=== PATIENT | female | born 1965 | race Caucasian/White ===

== ENCOUNTER 2019-11-01 07:52 | Outpatient (CLI) | payer MEDICARE, MEDICAID, SELFPAY ==
[2019-11-01 08:48] VITALS: BMI 37.5
--- NOTE | 2019-11-01 09:03 | NMCV_ITS ---
Mayra Ascencio Age: 54 Gender: F : 1965 Exam Date: 11/01/2019 09:17 Ordering Phys: Aurea Walters Technologist: SUMA Peck Exam Location: [facility] Indications: Chest Pain STRESS TEST Please see separate stress test report in [facility] for full findings IMAGE PROTOCOL Rest/Stress 1 Lexiscan Day Radiopharmaceutical Dose (mCi) Administration Site Administered by Rest: Tc-99m 10.6 IV SUMA Peck Sestamibi Stress:Tc-99m 28.7 IV SUMA Peck Sestamibi Rest: 01-Nov-2019 60 Discovery 630 Stress: 01-Nov-2019 60 Discovery 630 0.4mg Lexiscan. Images obtained in supine and prone position. SPECT RESULTS Technical Quality: Good Raw Data Analysis: Normal, Soft tissue attenuation Image Corrections: Attenuation correction applied to stress images. Summed Stress Score: 8 Summed Rest Score: 0 Summed Difference Score: 8 PERFUSION FINDINGS Small size perfusion abnormality of mild severity of mid to apical inferolateral, apical inferior, apical anterior and apical gil on supine stress images with improved tracer uptake on prone stress images. This is suggestive of attenuation artifact. FUNCTIONAL RESULTS (calculated via Gated SPECT) Stress Image LV EF (%): 77 Stress EDV (mL):66 TID: 1.02 Stress ESV (mL):15 FUNCTIONAL FINDINGS: The left ventricle is normal in size. Transient Ischemia Dilatation of 1. There is normal left ventricular systolic function. The left ventricular ejection fraction is normal with a value of 77%. There is normal left ventricular wall thickening. Normal end-diastolic and end-systolic volumes. IMPRESSIONS 1. Myocardial perfusion imaging is normal. Attenuation artifact noted in mid inferolateral and apical gil. 2. Overall left ventricular systolic function is normal without regional wall motion abnormalities. 3. The left ventricular ejection fraction is normal with a value of 77%. 4. No ischemia based on this study. Marlee Olmos MD (Electronically Signed) Final Date: 02 November 2019 11:49 S
--- NOTE | 2019-11-01 09:03 | ECG_ITS ---
NAME OF STUDY: LEXISCAN SESTAMIBI STRESS TEST INDICATION: Chest Pain PROCEDURE: At the baseline, the blood pressure was 93/61 mmHg, oxygen saturation 93% with a heart rate of 93 bpm. The electrocardiogram showed normal sinus rhythm and nonspecific T wave changes. The Lexiscan was infused over a period of 20 seconds. A total of 0.4 milligrams of Lexiscan was infused. The stress phase was continued for a total of 5 minutes. Heart rate at the end of the stress phase was 92 bpm, oxygen saturation 96% with a blood pressure 104/58 mmHg. The EKG at the peak infusion revealed sinus rhythm with no significant ST-T wave changes. Sestamibi was injected 20 seconds after the Lexiscan infusion. Blood pressure at the end of the recovery phase was 118/60 mmHg, oxygen saturation 95% with a heart rate of 93 beats per minute. CONCLUSION: 1. No significant EKG changes with the LexiScan infusion. 2. No LexiScan induced chest pain or cardiac arrhythmia. 3. Normal blood pressure and heart rate response. 4. Sestamibi/sestamibi perfusion scan pending; see separate report. Electronically Signed On 11-01-2019 13:03:21 SIZING SPONGER by Marlee Olmos M.D. [id number]
[2019-11-01] MEDS: regadenoson 0.4 Mg/5 ml Syringe IVP (10:13)
[2019-11-01 10:16] VITALS: BP 105/56; PULSE 97
== END 2019-11-01 07:53 | disposition home or self-care (01) ==
PROVIDERS: PCP Nurse Practitioner Family; Visit Provider Nurse Practitioner Family
DX: R07.89 Other chest pain (principal)
CPT/HCPCS: 78452; 93017; A9500; J2785

== ENCOUNTER → 2019-11-07 13:32 | Outpatient (BNVA) | payer MEDICARE, MEDICAID, SELFPAY | PROVIDERS: PCP Nurse Practitioner Family; Visit Provider Anesthesiology | DX: G89.29 Other chronic pain (principal); M47.817 Spondylosis without myelopathy or radiculopathy, lumbosacral region; M47.819 Spondylosis without myelopathy or radiculopathy, site unspecified; M51.06 Intervertebral disc disorders with myelopathy, lumbar region; M79.7 Fibromyalgia; M25.562 Pain in left knee; M79.651 Pain in right thigh; M79.652 Pain in left thigh; F17.210 Nicotine dependence, cigarettes, uncomplicated; Z79.891 Long term (current) use of opiate analgesic | CPT/HCPCS: 99214 ==

== ENCOUNTER → 2019-11-28 15:28 | Outpatient (BNVA) | payer MEDICARE, MEDICAID, SELFPAY | PROVIDERS: PCP Nurse Practitioner Family; Visit Provider Nurse Practitioner Family | DX: R68.89 Other general symptoms and signs (principal); J00 Acute nasopharyngitis [common cold]; F17.200 Nicotine dependence, unspecified, uncomplicated | CPT/HCPCS: 87804 ==

== ENCOUNTER 2019-12-17 04:06 | Emergency (ER) | payer MEDICARE, MEDICAID, SELFPAY ==
[2019-12-17 04:09] VITALS: BP 180/105; PULSE 112; RESP 18; TEMP 36.9; O2SAT 97; BMI 36.8
--- NOTE | 2019-12-17 04:19 | W.ED.EAR ---
HPI - Ear Problem General: Chief complaint: Ear Stated complaint: veloz/ear ache Time Seen by Provider: 12/17/19 04:19 History of Present Illness: MD Complaint: ear pain Location: bilateral Duration: constant Severity: severe Relieving factors: nothing Exacerbating factors: nothing Context: recent illness Discharge from ear: yes - bloody (left) Associated symptoms: Denies fever(s), headache(s) or neck pain Review of Systems Const: Denies: fever or chills Eyes: Denies: change in vision or blurry vision ENMT: Reports: Change in hearing and post nasal drip; Denies: painful swallowing, swelling of lips/tongue, bleeding gums or nose bleeds Card: Denies: chest pain, palpitations, irregular heart rhythm, edema, swelling of feet/ankles, shortness of breath on exertion or shortness of breath when lying down Resp: Denies: shortness of breath, productive cough, non-productive cough or wheezing GI: Denies: abdominal pain, nausea, vomiting, rectal pain, blood in stool or black tarry stool : Denies: painful urination, urinary frequency, urinary urgency or blood in urine Musc: Denies: neck pain, back pain, redness or joint warmth Skin/Breast: Denies: rash, itching or redness Neuro: Denies: headache, dizziness, vertigo, confusion or seizure-like activity Psych: Denies: anxiety PFSH ED PFSH: Social History Smoking and tobacco status: current every day smoker cigarettes Packs smoked per day: 0.75 [ Other cigarette details: 10-15 CIGS DAILY ] Alcohol intake: former Physical Exam Const: GENERAL APPEARANCE: well developed ORIENTATION/CONSCIOUSNESS: Yes oriented to person, Yes oriented to place and Yes oriented to time HENMT: COMMON NORMALS: normocephalic, external ears normal and external nose normal HEAD & SCALP: normocephalic; no scalp tenderness FACE & SINUS: normal facial exam NOSE: external nose normal and no nasal discharge EXTERNAL EAR: Yes external ears normal EXTERNAL AUDITORY CANAL: EAC abnormal EAC laterality: left Details: other (Bloody drainage present) TYMPANIC MEMBRANE: TM normal on the right and TM abnormal TM laterality: left Details: perforation MOUTH: tongue normal; no drooling THROAT: posterior oropharynx normal; no peritonsillar mass Eye: COMMON NORMALS: PERRL, EOMs intact bilaterally and conjunctivae normal EYELID: eyelids normal CONJUNCTIVA: Yes conjunctivae normal PUPIL: Yes PERRL Neck/C-Spine: COMMON NORMALS: full ROM GENERAL: No tracheal deviation CERVICAL SPINE: No cervical spine tenderness Chest: COMMONS NORMALS: inspection of chest normal CHEST: No tenderness Resp: COMMON NORMALS: clear to auscultation bilaterally EFFORT & INSPECTION: No tachypneic, No respiratory distress, No retractions, No uses accessory muscles and No tracheal deviation AUSCULTATION: clear to auscultation bilaterally, no rhonchi, no wheezes and lung sounds not diminished Cardio: COMMON NORMALS: regular rate and regular rhythm RATE: regular rate RHYTHM: regular rhythm HEART SOUNDS: no murmurs PERIPHERAL PULSES: radial pulses present GI: INSPECTION: No abdominal distension AUSCULTATION: No hyperactive bowel sounds and No hypoactive bowel sounds PALPATION: No guarding and No rigid PERCUSSION: no dullness to percussion and no tympanic to percussion Neuro: SENSORIUM/ORIENTATION: Yes oriented to person, Yes oriented to place and Yes oriented to time Psych: COMMON NORMALS: mental status grossly normal Skin: COMMON NORMALS: no rashes or lesions noted GENERAL SKIN EXAM: no rashes or lesions noted Course Vital Signs: Vital signs: Vital Signs Temperature 98.4 F 12/17/19 04:20 Pulse Rate 117 H 12/17/19 04:20 Respiratory Rate 22 H 12/17/19 05:23 Blood Pressure 137/100 12/17/19 04:20 Pulse Oximetry 95 12/17/19 04:20 MDM - Ear [facility] Narrative: Medical decision making narrative: 54-year-old female presents with headache, and left ear pain. On exam, she has bloody drainage from her perforated left TM. Her right TM appears normal. CT of the head is negative for bleed/hemorrhage/sinusitis/mastoiditis. Her white blood cell count, though, is 21.4. Her lactate is negative. She has an infiltrate in the right middle lobe of her lung. She will be treated for this plus the ear. Lab Data: Labs: Lab Results 12/17/19 12/17/19 12/17/19 Range/Units 05:35 05:35 06:00 WBC 21.4 H (4.0-10.0) 10^3/ uL RBC 5.19 (4.1-5.3) 10^6/u L Hgb 14.2 (11.5-15.3) g/dL Hct 42.6 (37.0-47.0) % MCV 82.1 (81-99) fL MCH 27.4 L (28.0-34.0) pg MCHC 33.3 (30.0-36.0) g/dL RDW 13.6 (12.1-15.1) % Plt Count 521 H (130-400) 10^3/c mm MPV 10.6 H (7.4-10.4) fL Neut % (Auto) 70.5 % Lymph % (Auto) 16.4 % Upson % (Auto) 9.2 % Eos % (Auto) 2.5 % Baso % (Auto) 0.6 % Neut # (Auto) 15.1 H (1.8-7.7) 10^3/u L Lymph # (Auto) 3.5 (0.8-4.8) 10^3/u L Upson # (Auto) 2.0 H (0.2-0.9) 10^3/u L Eos # (Auto) 0.5 (0.0-0.8) 10^3/u L Baso # (Auto) 0.1 (0.0-0.1) 10^3/u L Nucleated RBC % (a uto) 0 % Nucleated RBCs # 0.0 /100WBC Sodium Cancelled Potassium Cancelled Chloride Cancelled Carbon Dioxide Cancelled Anion Gap Cancelled BUN Cancelled Creatinine Cancelled GFR Calculation Cancelled Glucose Cancelled Lactate (0.5-2.2) mmol/L Calcium Cancelled Total Bilirubin Cancelled AST Cancelled ALT Cancelled Alkaline Phosphata se Cancelled Creatine Kinase Cancelled Total Protein Cancelled Albumin Cancelled Globulin Cancelled Urine Color Yellow (Yellow) Urine Appearance Clear (CLEAR) Urine pH 5.0 (5-7) Ur Specific Gravit y 1.020 (1.005-1.030) Urine Protein Neg (Negative) Urine Glucose (UA) 4+ H (Normal) Urine Ketones Negative (Negative) Urine Blood Neg (Negative) Urine Nitrate Negative (Negative) Urine Bilirubin Neg (NEGATIVE) Urine Urobilinogen Norm (Negative) mg/dL Ur Leukocyte Maria Elena ase Negative (Negative) Urine Opiates Scre en (Negative) ng/mL Ur Barbiturates Sc reen (Negative) ng/mL Ur Phencyclidine S crn (Negative) ng/mL Ur Amphetamines Sc reen (Negative) ng/mL U Benzodiazepines Scrn (Negative) ng/mL Urine Cocaine Scre en (Negative) ng/mL U Marijuana (THC) Screen (Negative) ng/mL Influenza Type A A g (Negative) POC Influenza B Ag (Negative) 12/17/19 12/17/19 12/17/19 Range/Units 06:00 06:50 06:53 WBC (4.0-10.0) 10^3/ uL RBC (4.1-5.3) 10^6/u L Hgb (11.5-15.3) g/dL Hct (37.0-47.0) % MCV (81-99) fL MCH (28.0-34.0) pg MCHC (30.0-36.0) g/dL RDW (12.1-15.1) % Plt Count (130-400) 10^3/c mm MPV (7.4-10.4) fL Neut % (Auto) % Lymph % (Auto) % Upson % (Auto) % Eos % (Auto) % Baso % (Auto) % Neut # (Auto) (1.8-7.7) 10^3/u L Lymph # (Auto) (0.8-4.8) 10^3/u L Upson # (Auto) (0.2-0.9) 10^3/u L Eos # (Auto) (0.0-0.8) 10^3/u L Baso # (Auto) (0.0-0.1) 10^3/u L Nucleated RBC % (a uto) % Nucleated RBCs # /100WBC Sodium Potassium Chloride Carbon Dioxide Anion Gap BUN Creatinine GFR Calculation Glucose Lactate 1.8 (0.5-2.2) mmol/L Calcium Total Bilirubin AST ALT Alkaline Phosphata se Creatine Kinase Total Protein Albumin Globulin Urine Color (Yellow) Urine Appearance (CLEAR) Urine pH (5-7) Ur Specific Gravit y (1.005-1.030) Urine Protein (Negative) Urine Glucose (UA) (Normal) Urine Ketones (Negative) Urine Blood (Negative) Urine Nitrate (Negative) Urine Bilirubin (NEGATIVE) Urine Urobilinogen (Negative) mg/dL Ur Leukocyte Maria Elena ase (Negative) Urine Opiates Scre en Positve (Negative) ng/mL Ur Barbiturates Sc reen Negative (Negative) ng/mL Ur Phencyclidine S crn Negative (Negative) ng/mL Ur Amphetamines Sc reen Negative (Negative) ng/mL U Benzodiazepines Scrn Negative (Negative) ng/mL Urine Cocaine Scre en Negative (Negative) ng/mL U Marijuana (THC) Screen Negative (Negative) ng/mL Influenza Type A A g Negative (Negative) POC Influenza B Ag Negative (Negative) 12/17/19 Range/Units 07:08 WBC (4.0-10.0) 10^3/ uL RBC (4.1-5.3) 10^6/u L Hgb (11.5-15.3) g/dL Hct (37.0-47.0) % MCV (81-99) fL MCH (28.0-34.0) pg MCHC (30.0-36.0) g/dL RDW (12.1-15.1) % Plt Count (130-400) 10^3/c mm MPV (7.4-10.4) fL Neut % (Auto) % Lymph % (Auto) % Upson % (Auto) % Eos % (Auto) % Baso % (Auto) % Neut # (Auto) (1.8-7.7) 10^3/u L Lymph # (Auto) (0.8-4.8) 10^3/u L Upson # (Auto) (0.2-0.9) 10^3/u L Eos # (Auto) (0.0-0.8) 10^3/u L Baso # (Auto) (0.0-0.1) 10^3/u L Nucleated RBC % (a uto) % Nucleated RBCs # /100WBC Sodium 133 L Potassium 4.9 Chloride 100 Carbon Dioxide 21 L Anion Gap 16.9 BUN 9 Creatinine 0.6 GFR Calculation 105.0 Glucose 277 H Lactate (0.5-2.2) mmol/L Calcium 9.8 Total Bilirubin 0.3 AST 15 ALT 21 Alkaline Phosphata se 103 Creatine Kinase 58 Total Protein 7.7 Albumin 4.0 Globulin 3.7 Urine Color (Yellow) Urine Appearance (CLEAR) Urine pH (5-7) Ur Specific Gravit y (1.005-1.030) Urine Protein (Negative) Urine Glucose (UA) (Normal) Urine Ketones (Negative) Urine Blood (Negative) Urine Nitrate (Negative) Urine Bilirubin (NEGATIVE) Urine Urobilinogen (Negative) mg/dL Ur Leukocyte Maria Elena ase (Negative) Urine Opiates Scre en (Negative) ng/mL Ur Barbiturates Sc reen (Negative) ng/mL Ur Phencyclidine S crn (Negative) ng/mL Ur Amphetamines Sc reen (Negative) ng/mL U Benzodiazepines Scrn (Negative) ng/mL Urine Cocaine Scre en (Negative) ng/mL U Marijuana (THC) Screen (Negative) ng/mL Influenza Type A A g (Negative) POC Influenza B Ag (Negative) Discharge Plan Discharge Patient Disposition: Home, Self-Care Clinical Impression: Otitis media Qualifiers: Otitis media type: suppurative Chronicity: acute Laterality: left Recurrence: not specified as recurrent Spontaneous tympanic membrane rupture: with spontaneous rupture Qualified Code(s): H66.012 - Acute suppurative otitis media with spontaneous rupture of ear drum, left ear Pneumonia Qualifiers: Pneumonia type: due to unspecified organism Laterality: right Lung location: middle lobe of lung Qualified Code(s): J18.9 - Pneumonia, unspecified organism Condition: Stable Prescriptions: New Levaquin 750 mg tablet 750 mg PO DAILY 7 Days Qty: 7 RF: 0 Ciprodex 0.3-0.1 % drops,suspension 4 drp EAR-BOTH BID 7 Days Qty: 15 RF: 0 No Action potassium chloride 20 mEq tablet,ER particles/crystals 20 meq PO QDAY RF: 0 tramadol [Ultram] 50 mg tablet 50 mg PO QID PRN (Reason: pain) 30 Days Qty: 120 RF: 0 Brilinta 90 mg tablet 90 mg PO BID RF: 0 lisinopril 2.5 mg tablet 2.5 mg PO QDAY RF: 0 doxepin 25 mg capsule 25 mg PO QDAY RF: 0 albuterol sulfate [ProAir HFA] 90 mcg/actuation HFA aerosol inhaler 1 inh INHALATION ONCE RF: 0 carvedilol 6.25 mg tablet 6.25 mg PO BID RF: 0 metformin 500 mg tablet 500 mg PO QDAY RF: 0 topiramate 50 mg tablet 50 mg PO BID RF: 0 atorvastatin 40 mg tablet 40 mg PO QDAY RF: 0 cholecalciferol (vitamin D3) 50,000 unit tablet 50,000 unit PO ONCE RF: 0 hydroxyzine HCl 25 mg tablet 25 mg PO QID PRNRF: 0 cyclobenzaprine 10 mg tablet 10 mg PO TID RF: 0 duloxetine 60 mg capsule, delayed rel sprinkle 60 mg PO QDAY RF: 0 Ozempic 0.25 mg or 0.5 mg(2 mg/1.5 mL) pen injector 0.25 mg SUBCUT ONCE RF: 0 albuterol sulfate 2.5 mg /3 mL (0.083 %) solution for nebulization 2.5 mg INHALATION Q6H RF: 0 Symbicort 160-4.5 mcg/actuation HFA aerosol inhaler 2 puff INHALATION BID RF: 0 pregabalin [Lyrica] 150 mg capsule 150 mg PO BID RF: 0 nitroglycerin 0.4 mg tablet, sublingual 0.4 mg SUBLINGUAL Q5M PRNRF: 0 pantoprazole [Protonix] 40 mg tablet,delayed release (DR/EC) 40 mg PO QDAY RF: 0 levetiracetam [Keppra] 500 mg tablet See Rx Instructions PO BID RF: 0 ondansetron HCl [Zofran] 4 mg tablet 4 mg PO Q8H PRNRF: 0 isosorbide mononitrate 60 mg tablet extended release 24 hr 60 mg PO BID 90 Days Qty: 180 RF: 3 Discharge Orders: Discharge Order (Routine); Ordered 12/17/19 Ordered By: Olman Shaw Referrals: Genevieve Crespo [Other] Genevieve Crespo FNP-C [Primary Care Provider] - 4-7 days Discharge Diet: Advance as tolerated Discharge Activity: Increase activity as tolerated Patient Instructions: Otitis Media (ED), Pneumonia (ED) Activity Restrictions/Additional Instructions: Return for fever greater than 100 despite 2-3 doses of antibiotics, worsening shortness of breath, worsening ear pain despite treatment, other concerning symptoms. Coding Level of Care Code ED [employer] for Chg Fwd Exam Comprehensive
[2019-12-17 04:20] VITALS: BP 137/100; PULSE 117; RESP 24; TEMP 36.9; O2SAT 95
--- NOTE | 2019-12-17 04:53 | CTR_ITS ---
PROCEDURE INFORMATION: Exam: CT Head Without Contrast Exam date and time: 12/17/2019 5:26 AM Age: 54 years old Clinical indication: Headache and other: Left ear pain; Headache not specified; Additional info: [facility] TECHNIQUE: Imaging protocol: Computed tomography of the head without contrast. Total DLP: 787.51 mGy-cm Radiation optimization: All CT scans at this facility use at least one of these dose optimization techniques: automated exposure control; mA and/or kV adjustment per patient size (includes targeted exams where dose is matched to clinical indication); or iterative reconstruction. COMPARISON: CT head wo con* [id number] 07/20/2019 9:10 PM FINDINGS: Brain: There is no acute intracranial hemorrhage or mass effect. Mild diffuse volume loss is within the range of normal for patient age. There are small vessel ischemic changes within the periventricular and subcortical white matter, but the normal pierce/white matter delineation is maintained. Ventricles: Normal. No ventriculomegaly. Bones/joints: Unremarkable. No acute fracture. Sinuses: Visualized sinuses are unremarkable. No fluid levels. Mastoid air cells: Visualized mastoid air cells are well aerated. Soft tissues: Unremarkable. CT/CT head wo con* [id number] IMPRESSION: No acute hemorrhage or edema. Radiation Dose CTDIVOL = (mGy): DLP = 787.51 (mGy-cm)
--- NOTE | 2019-12-17 04:55 | PC.NURSE ---
Agree with assessment as documented.
[2019-12-17] MEDS: ondansetron 2 mg/ML SDV 2 mL 4 MG IVP (05:22)
[2019-12-17 05:23] VITALS: RESP 22
[2019-12-17] MEDS: HYDROmorphone 1 mg/mL INJ 1 mL IVP (05:23)
[2019-12-17 05:56] LABS: Basophils # 0.1 10^3/uL (0.0-0.1); Basophils % 0.6 %; Eosinophils # 0.5 10^3/uL (0.0-0.8); Eosinophils % 2.5 %; Hematocrit 42.6 % (37.0-47.0); Hemoglobin 14.2 g/dL (11.5-15.3); Lymphocytes # 3.5 10^3/uL (0.8-4.8); Lymphocytes % 16.4 %; Mean Corpuscular HGB Conc 33.3 g/dL (30.0-36.0); Mean Corpuscular Hemoglobin 27.4 pg (28.0-34.0); Mean Corpuscular Volume 82.1 fL (81-99); Mean Platelet Volume 10.6 fL (7.4-10.4); Monocytes % 9.2 %; Neutrophils # 15.1 10^3/uL (1.8-7.7); Neutrophils % 70.5 %; Nucleated Red Blood Cells % 0 %; Platelet Count 521 10^3/cmm (130-400); Red Blood Count 5.19 10^6/uL (4.1-5.3); Red Cell Distribution Width 13.6 % (12.1-15.1); White Blood Count 21.4 10^3/uL (4.0-10.0)
[2019-12-17 06:17] LABS: Add Urine Microscopic? NO
[2019-12-17 06:27] LABS: Bilirubin Urine Neg (NEGATIVE); Blood Urine Neg (Negative); Glucose Urine UA 4+ (Normal); Ketones Urine Negative (Negative); Leukocyte Esterase Urine Negative (Negative); Nitrate Urine Negative (Negative); Protein Urine Neg (Negative); Urine Appearance Clear (CLEAR); Urine Color Yellow (Yellow); Urobilinogen Urine Norm (Negative)
[2019-12-17 06:41] LABS: Amphetamines Screen Urine Negative (Negative); Barbiturates Screen Urine Negative (Negative); Benzodiazepines Screen Urine Negative (Negative); Cocaine Screen Urine Negative (Negative); PCP Screen Urine Negative (Negative); THC Screen Urine Negative (Negative)
--- NOTE | 2019-12-17 06:44 | XR_ITS ---
WS: [id number] XR chest 1V portable [id number] REASON FOR EXAM: leukocytosis FINDINGS: Increased fluid in the minor fissure on the right. The lung yo are hypoaerated. There is a pneumonia in the right lung base with atelectasis. The above findings are increased since September 06, 2019. XR/XR chest 1V portable [id number] IMPRESSION: Low-grade pneumonia right lung base. Increased fluid in the minor fissure. Hypoaerated lungs bilaterally.
[2019-12-17 07:15] LABS: Lactate (Lactic Acid level) 1.8 mmol/L (0.5-2.2)
[2019-12-17] MEDS: levofloxacin-dextrose 5 % 750 MG/150 ML PREMIX 150 MG IV (07:18)
[2019-12-17 07:19] LABS: Influenza A by IFA Negative (Negative); Influenza B by IFA Negative (Negative)
[2019-12-17 07:30] LABS: Alanine Aminotransferase 21 U/L (0-33); Alkaline Phosphatase 103 IU/L (35-105); Anion Gap 16.9 (5-19); Aspartate Amino Transferase 15 U/L (0-32); Blood Urea Nitrogen 9 mg/dL (6-20); Calcium 9.8 mg/dL (8.5-10.5); Carbon Dioxide 21 mmol/L (22-29); Chloride 100 mmol/L (98-107); Creatine Phosphokinase 58 U/L (26-192); Globulin 3.7 g/dL (1.3-4.6); Glucose 277 mg/dL (65-115); Potassium 4.9 mmol/L (3.5-5.1); Sodium 133 mmol/L (136-145); Total Bilirubin 0.3 mg/dL (0.15-1.2); Total Protein 7.7 g/dL (6.6-8.7)
[2019-12-17 08:06] VITALS: BP 126/80; PULSE 100; RESP 18; O2SAT 95
[2019-12-17] MEDS: tetracaine 0.5% Op Soln 4 mL Btl 1 DROP XX (08:55)
[2019-12-17 09:12] VITALS: BP 119/61; PULSE 87; RESP 16; O2SAT 96
== END 2019-12-17 09:13 | disposition home or self-care (01) ==
PROVIDERS: Emergency Provider Emergency Medicine; PCP Nurse Practitioner Family
DX: H66.92 Otitis media, unspecified, left ear (principal); H72.92 Unspecified perforation of tympanic membrane, left ear; J18.9 Pneumonia, unspecified organism; F17.210 Nicotine dependence, cigarettes, uncomplicated
CPT/HCPCS: 36415; 70450; 71045; 80053; 80307; 81003; 82550; 83605; 85025; 87804; 96365; 96366; 96374; 96375; 99284; J1170; J1956; J2405

== ENCOUNTER → 2020-01-04 10:08 | Outpatient (BNVA) | payer MEDICARE, MEDICAID, SELFPAY | PROVIDERS: PCP Nurse Practitioner Family; Visit Provider Anesthesiology | DX: G89.29 Other chronic pain (principal); M47.817 Spondylosis without myelopathy or radiculopathy, lumbosacral region; M47.819 Spondylosis without myelopathy or radiculopathy, site unspecified; M51.06 Intervertebral disc disorders with myelopathy, lumbar region; M79.651 Pain in right thigh; M79.652 Pain in left thigh; F17.210 Nicotine dependence, cigarettes, uncomplicated; Z71.6 Tobacco abuse counseling; Z79.891 Long term (current) use of opiate analgesic | CPT/HCPCS: 99214 ==

== ENCOUNTER → 2020-02-12 11:35 | Outpatient (BNVA) | payer MEDICARE, SELFPAY | PROVIDERS: Family Provider Family Medicine; PCP Nurse Practitioner Family; Visit Provider Nurse Practitioner | DX: E11.65 Type 2 diabetes mellitus with hyperglycemia (principal); E55.9 Vitamin D deficiency, unspecified | CPT/HCPCS: 80053; 80061; 81000; 82044; 82306; 83036; 85025 ==

== ENCOUNTER 2020-04-17 14:23 | Inpatient (IN) | payer MEDICARE, MEDICAID, SELFPAY ==
[2020-04-17] VITALS (10 sets, daily range): BP systolic 92–146; BP diastolic 62–110; PULSE 85–103; RESP 16–22; TEMP 36.4–36.8; O2SAT 93–99; BMI 33.9
--- NOTE | 2020-04-17 14:25 | ECG_ITS ---
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 Measurements Intervals [place] Rate: 101 P: 59 AK: 164 QRS: 44 QRSD: 90 T: 66 QT: 337 QTc: 437 Interpretive Statements SINUS TACHYCARDIA MODERATE ST DEPRESSION [0.05+ mV ST DEPRESSION] Compared to ECG 09/06/2019 22:14:36 ST (T wave) deviation now present Sinus rhythm no longer present Electronically Signed On 04-17-2020 20:45:41 CDT by Marlee Olmos M.D. [id number] f
--- NOTE | 2020-04-17 14:25 | XRR_ITS ---
PROCEDURE INFORMATION: Exam: XR Chest, 1 View Exam date and time: 04/17/2020 2:47 PM Age: 54 years old Clinical indication: Type not specified; Prior surgery; Surgery date: 6+ months; Surgery type: Stents; Patient HX: Chest pain. HX of copd. HX of diabetes. Previous XR 12/17/19 TECHNIQUE: Imaging protocol: XR of the chest Views: 1 view. COMPARISON: CR XR chest 1V portable [id number] 12/17/2019 6:49 AM FINDINGS: Lungs: 9 mm calcified nodule left lung base, unchanged. No acute infiltrate. Pleural space: Unremarkable. No pleural effusion. No pneumothorax. Heart/Mediastinum: Unremarkable. No cardiomegaly. Bones/joints: Unremarkable. XR/XR chest 1V portable [id number] IMPRESSION: No acute process evident.
[2020-04-17] MEDS: ondansetron 2 mg/ML SDV 2 mL 4 MG IVP (14:47)
[2020-04-17] MEDS: HYDROmorphone 1 mg/mL INJ 1 mL IVP (14:47)
[2020-04-17] MEDS: nitroglycerin 1 gm/inch oint Pkt 1 INCH TOPICAL (14:47)
--- NOTE | 2020-04-17 14:53 | W.ED.CHESTPA ---
HPI - Chest Pain General: Chief Complaint: Chest Pain Stated Complaint: CHEST PAIN Time Seen by Provider: 04/17/20 14:25 Source: patient and EMS Mode of arrival: EMS Limitations: no limitations History of Present Illness: HPI narrative: Mayra is a 54-year-old female with a history of coronary artery disease and 2 stents that comes in complaining of chest pain. She states that she had chest pain that awoke her from sleep at 3 AM but resolved with nitroglycerin. The same pain resumed at noon today. She describes the pain as a squeezing type pain that radiates down her left arm. She got no relief or only partial relief with her nitroglycerin and called EMS. EMS reports the patient got relief with her nitroglycerin but then the pain recurred. She got partial relief with morphine in route. Patient also describes shortness of breath and diaphoresis but denies any nausea or vomiting. Other than nitroglycerin she is unaware of any exacerbating or alleviating factors. Associated symptoms: Reports diaphoresis and dyspnea; Deny abdominal pain, fever(s), nausea, palpitations, syncope or vomiting Review of Systems Const: Reports: diaphoresis; Denies: fever(s), chills, body aches, fatigue or malaise Eyes: Denies: change in vision, blurry vision, blind spots, photophobia, eye discharge or eye redness ENMT: Denies: throat pain, odynophagia, hoarseness, swelling of lips/tongue, oral sores, ear or mastoid pain, ear discharge, change in hearing or nasal discharge Card: Reports: chest pain; Denies: palpitations, irregular heart rhythm, edema, lightheadedness, syncope, pre-syncope, dyspnea on exertion or orthopnea Resp: Reports: dyspnea; Denies: productive cough, non-productive cough, wheezing, hemoptysis or chest congestion GI: Denies: abdominal pain, nausea, vomiting, hematemesis, coffee ground emesis, heartburn, diarrhea, constipation, GI cramping, hematochezia or melena : Denies: flank pain, dysuria, urinary frequency, urinary urgency or hematuria Musc: Denies: neck pain, back pain, extremity pain, extremity swelling, joint pain, joint swelling, joint redness, joint warmth or joint stiffness Skin/Breast: Denies: rash, pruritus, erythema, skin tenderness or jaundice Neuro: Denies: headache(s), numbness in extremities, weakness in extremities, sensory changes, lack of coordination, difficulty walking, dizziness, vertigo, confusion, Slurred speech present or seizure-like activity Xavier/Lymph: Denies: easy bruising, easy bleeding, petechiae, purpura or enlarged lymph nodes All/Imm: Denies: urticaria, throat swelling, tongue swelling, facial swelling or acute wheezing PFSH ED PFSH: Medical History Atherosclerotic heart disease of [place] coronary artery with unspecified angina pectoris Chronic left-sided low back pain Chronic obstructive pulmonary disease, unspecified Chronic pain of left knee Controlled diabetes mellitus with hyperglycemia, without long-term current use of insulin Current every day smoker Encounter for long-term opiate analgesic use Essential hypertension Fibromyalgia Intervertebral disc disorder of lumbar region with myelopathy Low back pain radiating to both legs Lumbosacral spondylosis without myelopathy Opioid contract exists Osteoarthritis of spine at multiple levels Type 2 diabetes mellitus with diabetic autonomic (poly)neuropathy Vitamin D deficiency Surgical History History of arthroscopic surgery of elbow BILATERAL S/p bilateral carpal tunnel release S/P hysterectomy S/P knee surgery RIGHT S/P lumbar fusion DR. Shreya ZAYAS IN [place], [place] L4-L5, L5-S1 Status post lumbar laminectomy Family History Other CAD (coronary artery disease) Cancer Diabetes Social History Smoking and tobacco status: current every day smoker cigarettes Packs smoked per day: 0.75 [ Other cigarette details: 10-15 CIGS DAILY ] Second hand smoke exposure: Yes Smoking risk assessment/counseling performed?: Yes Alcohol intake: former Desire information about alcohol rehabilitation?: No Counseling given: No Desire information about substance/drug rehabilitation?: No Counseling given: No Caregiver/support person: No Lives independently: Yes Household members: family Housing: Manufactured/Mobile home Marital status: service: No Current occupational status: unemployed Pets and animals: Yes History of recent travel: No Current gender identity: Female Physical Exam Const: COMMON NORMALS: no acute distress, patient oriented x3, no limitations, healthy appearing and well nourished GENERAL APPEARANCE: cooperative, well kempt and well developed HENMT: COMMON NORMALS: normocephalic, atraumatic, external ears normal, EAC's normal and Normal external nose present HEAD & SCALP: normal to inspection, normocephalic and atraumatic FACE & SINUS: normal facial exam and face symmetric NOSE: Normal external nose present and Normal nares present EXTERNAL EAR: Yes external ears normal EXTERNAL AUDITORY CANAL: EAC's normal MOUTH: Normal oral and palatal mucosa present, lip normal and tongue normal Eye: COMMON NORMALS: Equal, round and reactive pupils present and conjunctivae normal GENERAL EYE: appearance normal, both eyes and all related structures ALIGNMENT: Yes alignment normal PERIORBITAL: periorbital findings normal EYELID: eyelids normal CONJUNCTIVA: Yes conjunctivae normal SCLERA: sclerae normal PUPIL: Yes Equal, round and reactive pupils present Neck/C-Spine: COMMON NORMALS: full ROM, no lymphadenopathy, supple, no meningeal signs and no JVD GENERAL: Yes normal visual inspection and Yes trachea midline Chest: COMMONS NORMALS: normal inspection of the chest and normal palpation of entire chest wall Resp: COMMON NORMALS: normal respiratory effort, No retractions and No use of accessory muscles EFFORT & INSPECTION: Yes able to speak in complete sentences and Yes symmetric chest movement AUSCULTATION: no crackles, no rales, no rhonchi and no wheezes Cardio: COMMON NORMALS: no JVD, regular rate, regular rhythm, S1 normal heart sound present and S2 normal heart sound present RATE: regular rate RHYTHM: regular rhythm HEART SOUNDS: S1 normal heart sound present, S2 normal heart sound present, no click, no gallops, no murmurs, no rubs and abnormal split S2 GI: COMMON NORMALS: Soft to palpation and No hepatosplenomegaly present PALPATION: Yes Soft to palpation, No Tenderness to palpation present (GI), No Guarding due to palpation present (GI), No Rigid due to palpation, Yes No hepatosplenomegaly present, No Hernia present, No Palpable mass present and No Pulsatile mass present : COMMON NORMALS: Yes no CVA tenderness BLADDER/KIDNEY EXAM: Yes no CVA tenderness EXTERNAL FEMALE EXAM: No Hernia present Back/Pelvis: COMMON NORMALS: no CVA tenderness, thoracic and lumbar spine normal to inspection, no thoracic nor lumbar tenderness and thoraco-lumbar ROM normal Extremity: COMMON NORMALS: normal to inspection, full ROM, capillary refill normal, no joint enlargement, no clubbing, cyanosis or edema and no calf tenderness Neuro: COMMON NORMALS: patient oriented x3, CN's II-XII intact bilaterally, moves all extremities, no focal motor deficits and no sensory deficits noted MENINGEAL SIGNS: Yes no meningeal signs SPEECH: speech normal Psych: COMMON NORMALS: mental status grossly normal, Normal thought process present, cooperative, normal affect, speech normal and activity/motor behavior normal APPEARANCE: Yes well kempt SPEECH: Yes normal speech THOUGHT PROCESS: Normal thought process present Skin: COMMON NORMALS: no rashes or lesions noted, turgor normal, no jaundice, no petechiae and no mottling GENERAL SKIN EXAM: no rashes or lesions noted and turgor normal Course Vital Signs: Vital signs: Vital Signs Temperature 98.1 F 04/17/20 19:48 Pulse Rate 88 04/17/20 20:27 Respiratory Rate 20 H 04/17/20 20:41 Blood Pressure 92/65 04/17/20 19:48 Pulse Oximetry 94 04/17/20 20:41 MDM - Chest Pain MDM Narrative: Medical decision making narrative: Patient has a heart score of 5. Most recent cardiac work-up was in October of this year which did not reveal anything specific. Patient symptoms sound as though she is having crescendo angina. Her EKG appears to be worse than her baseline with minor ST segment depressions. Because of her complicated history I believe she would benefit from inpatient evaluation. I reviewed the case in full with Dr. Gresham who is in agreement. The patient is chest pain-free after combination of aspirin and Dilaudid for her pain. Lab Data: Attestation: I reviewed the patient's lab results. Labs: Lab Results 04/17/20 04/17/20 04/17/20 Range/Units 15:28 15:28 15:28 WBC 16.3 H (4.0-10.0) 10^3/ uL RBC 4.94 (4.1-5.3) 10^6/u L Hgb 13.5 (11.5-15.3) g/dL Hct 42.6 (37.0-47.0) % MCV 86.2 (81-99) fL MCH 27.3 L (28.0-34.0) pg MCHC 31.7 (30.0-36.0) g/dL RDW 14.9 (12.1-15.1) % Plt Count 497 H (130-400) 10^3/c mm MPV 9.6 (7.4-10.4) fL Neut % (Auto) 65.0 % Lymph % (Auto) 22.5 % Vill[place]ba % (Auto) 7.3 % Eos % (Auto) 3.8 % Baso % (Auto) 0.7 % Neut # (Auto) 10.6 H (1.8-7.7) 10^3/u L Lymph # (Auto) 3.7 (0.8-4.8) 10^3/u L [place] # (Auto) 1.2 H (0.2-0.9) 10^3/u L Eos # (Auto) 0.6 (0.0-0.8) 10^3/u L Baso # (Auto) 0.1 (0.0-0.1) 10^3/u L Nucleated RBC % (a uto) 0 % Nucleated RBCs # 0.0 /100WBC Sodium 136 (136-145) mmol/L Potassium 4.3 (3.5-5.1) mmol/L Chloride 102 (98-107) mmol/L Carbon Dioxide 23 (22-29) mmol/L Anion Gap 15.3 (5-19) BUN 10 (6-20) mg/dL Creatinine 0.6 (0.5-0.9) mg/dL GFR Calculation 105.0 (90-130) mL/min Glucose 239 H (65-115) mg/dL Calculated Osmolal ity 286 (285-295) mOsm/k g Calcium 9.3 (8.5-10.5) mg/dL Total Bilirubin 0.2 (0.15-1.2) mg/dL AST 10 (0-32) U/L ALT 12 (0-33) U/L Alkaline Phosphata se 101 (35-105) IU/L Troponin T Baselin e 16 H (0-10) ng/L Total Protein 6.8 (6.6-8.7) g/dL Albumin 3.9 (3.5-5.2) g/dL Globulin 2.9 (1.3-4.6) g/dL Imaging Data^: CXR: My impression: No acute cardiopulmonary findings. EKG Data^: EKG 1: EKG interpretation date: 04/17/20 EKG interpretation time: 14:41 Interpretation: Normal sinus rhythm at 101 beats a minute, nonspecific ST and T wave changes. No other acute findings. EKG 2: Attestation: I personally reviewed and interpreted this EKG as follows: EKG interpretation date: 04/17/20 EKG interpretation time: 15:59 Interpretation: Normal sinus rhythm at 86 beats a minute, nonspecific ST and T wave changes. Discharge Plan Discharge Patient Disposition: Placed in Observation Admit Provider: Elke Gresham Clinical Impression: Chest pain Qualifiers: Chest pain type: unspecified Qualified Code(s): R07.9 - Chest pain, unspecified Condition: Stable Referrals: Genevieve Crespo FNP-C [Primary Care Provider] - Discharge Date/Time: 04/17/20 18:15 Coding Level of Care Code ED Applied Researcher for Chg Fwd Exam Comprehensive
[2020-04-17 15:38] LABS: Basophils # 0.1 10^3/uL (0.0-0.1); Basophils % 0.7 %; Eosinophils # 0.6 10^3/uL (0.0-0.8); Eosinophils % 3.8 %; Hematocrit 42.6 % (37.0-47.0); Hemoglobin 13.5 g/dL (11.5-15.3); Lymphocytes # 3.7 10^3/uL (0.8-4.8); Lymphocytes % 22.5 %; Mean Corpuscular HGB Conc 31.7 g/dL (30.0-36.0); Mean Corpuscular Hemoglobin 27.3 pg (28.0-34.0); Mean Corpuscular Volume 86.2 fL (81-99); Mean Platelet Volume 9.6 fL (7.4-10.4); Monocytes # 1.2 10^3/uL (0.2-0.9); Monocytes % 7.3 %; Neutrophils # 10.6 10^3/uL (1.8-7.7); Nucleated Red Blood Cells % 0 %; Platelet Count 497 10^3/cmm (130-400); Red Blood Count 4.94 10^6/uL (4.1-5.3); Red Cell Distribution Width 14.9 % (12.1-15.1); White Blood Count 16.3 10^3/uL (4.0-10.0)
[2020-04-17 15:57] LABS: Alanine Aminotransferase 12 U/L (0-33); Albumin Level 3.9 g/dL (3.5-5.2); Alkaline Phosphatase 101 IU/L (35-105); Anion Gap 15.3 (5-19); Aspartate Amino Transferase 10 U/L (0-32); Blood Urea Nitrogen 10 mg/dL (6-20); Calcium 9.3 mg/dL (8.5-10.5); Carbon Dioxide 23 mmol/L (22-29); Chloride 102 mmol/L (98-107); Globulin 2.9 g/dL (1.3-4.6); Glucose 239 mg/dL (65-115); Osmolality Calculated 286 mOsm/kg (285-295); Potassium 4.3 mmol/L (3.5-5.1); Sodium 136 mmol/L (136-145); Total Bilirubin 0.2 mg/dL (0.15-1.2); Total Protein 6.8 g/dL (6.6-8.7)
[2020-04-17 16:04] LABS: Troponin(5th) Baseline 16 ng/L (0-10)
[2020-04-17] MEDS: HYDROmorphone 1 mg/mL INJ 1 mL 0.5 MG IVP (16:19)
--- NOTE | 2020-04-17 16:25 | ECG_ITS ---
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 Measurements Intervals [place] Rate: 86 P: 21 NV: 199 QRS: 26 QRSD: 98 T: 35 QT: 384 QTc: 460 Interpretive Statements SINUS RHYTHM MODERATE ST DEPRESSION [0.05+ mV ST DEPRESSION] Compared to ECG 04/17/2020 14:41:23 Sinus tachycardia no longer present ST (T wave) deviation still present Electronically Signed On 04-17-2020 20:54:11 CDT by Marlee Olmos M.D. [email or web address]/store/NU/[id number] f
[2020-04-17 18:14] LABS: Troponin 5 2HR 31.83 ng/L (0-10)
[2020-04-17 18:24] LABS: Troponin 5 2HR Delta 15.83 ABS# (0-10)
--- NOTE | 2020-04-17 19:05 | P.HP_ITS ---
Providers/Chief Complaint Admitting Physician: Elke Gresham MD Primary Care Provider: CHARLOTTE Pugh Chief Complaint: CHEST PAIN History of Present Illness Mayra Ascencio is a 54 year old female History of DM, non-ST elevation AR status post stent Angiogram in November 2018 showed nonobstructive disease with 20% proximal LAD, 20% mild circumflex, 20% mild RCA and normal left main , last stress test 10/2019 with no ischemia. Presents to ER complaining of chest pain. She states that she had chest pain that awoke her from sleep at 3 AM but resolved with nitroglycerin. The same pain resumed at noon today. She describes the pain as a squeezing type pain that radiates down her left arm. She got partial relief with morphine in route. Associated symptoms are diaphoresis. Troponin is at 16 at baseline. Chest pain is currently resolved. No acute ST-T wave changes. Review of Systems General: Reports: 10 or more systems reviewed and unremarkable except in HPI and below Const: Denies: fever(s), chills or body aches Eyes: Denies: change in vision, blurry vision or photophobia ENMT: Reports: hoarseness; Denies: throat pain, enlarged tonsils, odynophagia or nasal congestion Card: Denies: chest pain, palpitations, irregular heart rhythm, edema, swelling of feet/ankles, lightheadedness, pre-syncope, dyspnea on exertion or orthopnea Resp: Denies: dyspnea, productive cough, non-productive cough, wheezing, stridor, pain on inspiration, change in phlegm color, hemoptysis or chest congestion GI: Denies: abdominal pain, nausea, vomiting, hematemesis, coffee ground emesis, dysphagia, heartburn, diarrhea, constipation, GI cramping, change in stool character, hematochezia or melena : Denies: flank pain, difficulty voiding, dysuria, urinary frequency, urin [place] urgency, urinary hesitancy or hematuria Musc: Denies: neck pain, back pain, extremity pain, joint swelling, joint warmth or deformity Neuro: Denies: headache(s), numbness in extremities, weakness in extremities, sensory changes, difficulty walking, frequent falls, dizziness, vertigo, b ehavioral changes, Slurred speech present or seizure-like activity Psych: Denies: anxiety, depression, suicidal ideation or homicidal ideation Endo: Denies: polyuria, polydipsia, tired all the time, cold intolerance or hot flashes Xavier/Lymph: Denies: easy bruising or easy bleeding Medications/Allergies Home Medications Medication Instructions Recorded Confirmed Last Taken Type doxepin 25 mg capsule 25 mg PO DAILY 11/05/19 04/17/20 04/17/20 History duloxetine 60 mg capsule,delayed 60 mg PO DAILY 11/05/19 04/17/20 04/17/20 History release sprinkle hydroxyzine HCl 25 mg tablet 25 mg PO QID PRN 11/05/19 04/17/20 04/17/20 History nitroglycerin 0.4 mg sublingual 0.4 mg SUBLINGUAL Q5M PRN 11/05/19 04/17/20 04/17/20 History tablet pantoprazole 40 mg tablet,delayed 40 mg PO DAILY 11/05/19 04/17/20 04/17/20 History release ticagrelor 90 mg tablet 90 mg PO BID 11/05/19 04/17/20 04/17/20 History topiramate 50 mg tablet 50 mg PO BID 11/05/19 04/17/20 04/17/20 History ondansetron HCl 4 mg tablet 4 mg PO Q8H PRN 11/07/19 04/17/20 04/17/20 History potassium chloride 20 mEq 20 meq PO DAILY 11/07/19 04/17/20 04/17/20 History tablet,extended release(part/cryst) atorvastatin 40 mg tablet 40 mg PO QDAY #30 tab 02/24/20 04/17/20 04/17/20 Rx budesonide-formoterol HFA 160 2 puff INHALATION Q12H #10.2 gm 02/24/20 04/17/20 04/17/20 Rx mcg-4.5 mcg/actuation aerosol inhaler cholecalciferol (vitamin D3) 1,250 50,000 unit PO .weekly #4 tab 02/24/20 04/17/20 04/13/20 Rx mcg (50,000 unit) tablet metformin 500 mg tablet,extended 1,000 mg PO BID #120 tab 02/24/20 04/17/20 04/17/20 Rx release 24 hr semaglutide 1 mg/dose (2 mg/1.5 1 mg SUBCUT .weekly #3 ml 02/29/20 04/17/20 04/13/20 Rx mL) subcutaneous pen injector cyclobenzaprine 10 mg tablet 10 mg PO TID 30 Days #90 tab 03/04/20 04/17/20 04/17/20 Rx pregabalin 150 mg capsule 150 mg PO BID 30 Days #60 cap 03/04/20 04/17/20 04/17/20 Rx tramadol 50 mg tablet 50 mg PO QID PRN 30 Days #120 tab 03/04/20 04/17/20 04/17/20 Rx albuterol sulfate 90 mcg/actuation 2 puff INHALATION QID PRN 30 Days 03/25/20 04/17/20 04/17/20 Rx aerosol inhaler #6.7 gm pen needle, diabetic 31 gauge x #1,200 each 03/25/20 04/17/20 Unknown Rx 03/01 isosorbide mononitrate 60 mg 60 mg PO BID 90 Days #180 tab 04/12/20 04/17/20 04/17/20 Rx tablet,extended release 24 hr carvedilol [Coreg] 6.25 mg PO BID 04/17/20 04/17/20 04/17/20 History fluticasone furoate-vilanterol See Rx Instructions .ROUTE .COMPLEX 04/17/20 04/17/20 04/17/20 History [Breo Ellipta] lisinopril 2.5 mg PO DAILY 04/17/20 04/17/20 04/17/20 History Allergies Allergy/AdvReac Type Severity Reaction Status Date / Time adhesive Allergy Unknown Verified 04/17/20 16:01 clindamycin Allergy ADR-Itching Verified 04/17/20 16:01 codeine Allergy Unknown Verified 04/17/20 16:01 fentanyl Allergy ALGY-Swell Verified 04/17/20 16:01 Lip/Tongue/Throat hydrocodone Allergy Unknown Verified 04/17/20 16:01 latex Allergy ALGY-Swell Verified 04/17/20 16:01 Lip/Tongue/Throat midazolam [From Versed] Allergy ADR-Itching Verified 04/17/20 16:01 naproxen [From Naprosyn] Allergy Unknown Verified 04/17/20 16:01 nut - unspecified Allergy ALGY-Anaphy Verified 04/17/20 16:01 laxis oxycodone [From Roxicodone] Allergy ADR-Muscle Verified 04/17/20 16:01 Pain Penicillins Allergy Unknown Verified 04/17/20 16:01 sulfamethoxazole Allergy ADR-Migrain Verified 04/17/20 16:01 [From Bactrim] e trimethoprim [From Bactrim] Allergy ADR-Migrain Verified 04/17/20 16:01 e PFSH Acute PFSH: Medical History Atherosclerotic heart disease of [place] coronary artery with unspecified angina pectoris Chronic left-sided low back pain Chronic obstructive pulmonary disease, unspecified Chronic pain of left knee Controlled diabetes mellitus with hyperglycemia, without long-term current use of insulin Current every day smoker Encounter for long-term opiate analgesic use Essential hypertension Fibromyalgia Intervertebral disc disorder of lumbar region with myelopathy Low back pain radiating to both legs Lumbosacral spondylosis without myelopathy Opioid contract exists Osteoarthritis of spine at multiple levels Type 2 diabetes mellitus with diabetic autonomic (poly)neuropathy Vitamin D deficiency Surgical History History of arthroscopic surgery of elbow BILATERAL S/p bilateral carpal tunnel release S/P hysterectomy S/P knee surgery RIGHT S/P lumbar fusion DR. Shreya ZAYAS IN [place], [place] L4-L5, L5-S1 Status post lumbar laminectomy Family History Other CAD (coronary artery disease) Cancer Diabetes Social History Smoking and tobacco status: current every day smoker cigarettes Packs smoked per day: 0.75 [ Other cigarette details: 10-15 CIGS DAILY ] Second hand smoke exposure: Yes Smoking risk assessment/counseling performed?: Yes Alcohol intake: former Desire information about alcohol rehabilitation?: No Counseling given: No Desire information about substance/drug rehabilitation?: No Counseling given: No Caregiver/support person: No Lives independently: Yes Household members: family Housing: Manufactured/Mobile home Marital status: service: No Current occupational status: unemployed Pets and animals: Yes History of recent travel: No Current gender identity: Female Vitals/I&O/Wt Last Vital Signs Temp 97.6 F 04/17/20 18:31 Pulse 90 04/17/20 18:31 Resp 18 04/17/20 18:31 BP 128/82 04/17/20 18:31 Pulse Ox 96 04/17/20 18:31 Weight last 48 hrs Weight 95.254 kg Physical Exam Narrative: EXAM NARRATIVE: GEN: Awake, alert and oriented, no acute distress CVS: S1S2 N RS: CTA B/L Abd: Soft, nt/nd , bs+ 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 Baseline troponin is elevated at 16, however review of troponin from August 2019 was at 19. We will await serial troponins and EKGs. In the interim continue patient on aspirin, carvedilol, atorvastatin If chest pain persists, will go ahead and consult cardiology to assess for any further need for angiogram. Last stress test in October 2019 was within normal limits. Morphine and for pain control, PRN nitrates. Full code DVT prophylaxis Lovenox. Status: Acute Qualifiers: Chest pain type: unspecified Qualified Code(s): R07.9 - Chest pain, unspecified Attestations Medical Necessity Statement*: Anticipated admission less than 2 midnight for management and evaluation of chest pain. Coding Level of Care Code Acute Devops Developer for Nahed Alcazar Diagnoses Chest pain R07.9 Chest pain type: unspecified
[2020-04-17] MEDS: budesonide 0.5 mg/2 mL Neb 0.25 MG INHALATION (20:20)
[2020-04-17] MEDS: ipratropium-albuterol 3 mL Neb INHALATION (20:20)
[2020-04-17] MEDS: sodium chloride 0.9% 1,000 ML 100 ML IV (20:22)
[2020-04-17] MEDS: cyclobenzaprine 10 mg Tablet PO (20:23)
[2020-04-17] MEDS: carvedilol 6.25 mg Tablet PO (20:23)
[2020-04-17] MEDS: atorvastatin 40 mg Tablet PO (20:23)
[2020-04-17] MEDS: enoxaparin 100 mg/mL Syringe 95 MG SUBCUT (20:23)
[2020-04-17] MEDS: isosorbide mononitrate ER 60 mg Tablet PO (20:31)
[2020-04-17] MEDS: morphine 4 mg/mL SDV 1 mL IVP (20:41)
[2020-04-17 20:43] LABS: Troponin 5 6HR 34.01 ng/L (0-10)
[2020-04-17 20:52] LABS: Troponin 5 6HR Delta 18.01 ng/L (0-12)
[2020-04-17 21:03] LABS: Glucose Point of Care 285 mg/dL (70-110)
[2020-04-17] MEDS: doxepin 25 mg Capsule PO (23:10)
[2020-04-17] MEDS: pregabalin 150 mg Capsule PO (23:10)
[2020-04-18] VITALS (15 sets, daily range): BP systolic 102–141; BP diastolic 64–97; PULSE 64–95; RESP 12–26; TEMP 36.5–36.9; O2SAT 91–98
[2020-04-18] MEDS: morphine 4 mg/mL SDV 1 mL IVP ×4 (04:52→22:00)
[2020-04-18 05:38] LABS: Basophils # 0.1 10^3/uL (0.0-0.1); Basophils % 0.6 %; Eosinophils # 0.7 10^3/uL (0.0-0.8); Eosinophils % 3.8 %; Hematocrit 37.2 % (37.0-47.0); Hemoglobin 11.7 g/dL (11.5-15.3); Lymphocytes # 6.4 10^3/uL (0.8-4.8); Lymphocytes % 37.4 %; Mean Corpuscular HGB Conc 31.5 g/dL (30.0-36.0); Mean Corpuscular Hemoglobin 27.5 pg (28.0-34.0); Mean Corpuscular Volume 87.3 fL (81-99); Mean Platelet Volume 10.7 fL (7.4-10.4); Monocytes # 1.2 10^3/uL (0.2-0.9); Monocytes % 7.1 %; Neutrophils # 8.6 10^3/uL (1.8-7.7); Neutrophils % 50.6 %; Nucleated Red Blood Cells % 0 %; Platelet Count 434 10^3/cmm (130-400); Red Blood Count 4.26 10^6/uL (4.1-5.3); Red Cell Distribution Width 14.9 % (12.1-15.1)
[2020-04-18 05:58] LABS: Alanine Aminotransferase 12 U/L (0-33); Albumin Level 3.3 g/dL (3.5-5.2); Alkaline Phosphatase 93 IU/L (35-105); Anion Gap 14.1 (5-19); Aspartate Amino Transferase 11 U/L (0-32); Blood Urea Nitrogen 12 mg/dL (6-20); Carbon Dioxide 26 mmol/L (22-29); Chloride 105 mmol/L (98-107); Globulin 2.8 g/dL (1.3-4.6); Glomerular Filtration Rate 129.6 mL/min (90-130); Glucose 177 mg/dL (65-115); Osmolality Calculated 292 mOsm/kg (285-295); Potassium 4.1 mmol/L (3.5-5.1); Sodium 141 mmol/L (136-145); Total Bilirubin 0.2 mg/dL (0.15-1.2); Total Protein 6.1 g/dL (6.6-8.7)
[2020-04-18 06:42] LABS: Slide Review Slide Review Perform
[2020-04-18 07:07] LABS: Glucose Point of Care 159 mg/dL (70-110)
[2020-04-18] MEDS: ipratropium-albuterol 3 mL Neb INHALATION ×2 (08:29→21:08)
[2020-04-18] MEDS: budesonide 0.5 mg/2 mL Neb 0.25 MG INHALATION ×2 (08:29→21:08)
[2020-04-18] MEDS: pregabalin 150 mg Capsule PO ×2 (09:35→17:46)
[2020-04-18] MEDS: topiramate 25 mg Tablet 50 MG PO ×2 (09:35→17:46)
[2020-04-18] MEDS: carvedilol 6.25 mg Tablet PO ×2 (09:35→17:46)
[2020-04-18] MEDS: duloxetine 60 mg Capsule PO (09:35)
[2020-04-18] MEDS: isosorbide mononitrate ER 60 mg Tablet PO ×2 (09:36→17:46)
[2020-04-18] MEDS: TRAMadol 50 mg Tablet PO (09:36)
[2020-04-18] MEDS: cyclobenzaprine 10 mg Tablet PO ×2 (09:36→20:47)
[2020-04-18] MEDS: pantoprazole DR 40 mg Tablet PO (09:36)
--- NOTE | 2020-04-18 10:02 | PC.CHAP ---
Pastoral Care Encounter/Spiritual Assessment Type of Contact [] Declined pugger helper visit [] Patient/Family/Request visit [] Outpatient visit [] Follow-up visit [] Physician referral [] Code/Alert [x] Routine visit [] Staff referral [] Actively dying [] Patient sleeping [] Family support [] [] Out of room [] Palliative care [] [] Receiving care in room [] Pre-surgical visit [] Trauma [] Long length of stay [] ICU visit [] Other: Relational/Emotional Strength [] Patient feels connected with others/family/visitors/staff [] Distress [] Loneliness/isolation [] Abandonment Spirituality of Patient [] Person of Mary [] Attends Anabaptism of their Mary [] Believes in Prayer [] Reads Bible or Spiritism materials [] There are Spiritual issues to be addressed Project Specialist Interventions [x] Prayer [x] Active listening [x] Non-anxious presence [x] Spiritual/emotional support [] Crisis/trauma care [] Spiritual counseling [] Bereavement support [] Provided bereavement packet [] Provided Bible/devotional materials [] Provided toy/stuffed animal, coloring book to patient or family member [] Provided Communion [] Anointing/[place] [] Salvation [x] Completed spiritual assessment [] Other: Impact on Illness or Injury [] Angry [] Fearful [] Anxious [] Often cries [] Exhaustion [] Unable to work [] Unable to attend moravian [] Unable to walk/stand [] Unable to read [] Unable to drive [] Unable to eat/drink [] Unable to sleep [] Unable to be with family [] Patient intubated [] Other: Summary Patient resting well Time spent with patient 5 min
[2020-04-18 10:51] LABS: Glucose Point of Care 154 mg/dL (70-110)
[2020-04-18] MEDS: ticagrelor 90 mg Tablet PO ×2 (11:54→20:46)
--- NOTE | 2020-04-18 14:24 | PM.CONSULT ---
Providers/Reason For Consult Consulting Physican/Specialty*: Cardiology Reason for Consult*: Coronary disease Angina unstable Attending Physician: Elke Gresham MD Primary Care Provider: CHARLOTTE Pugh History of Present Illness History of Present Illness Mayra Ascencio is a 54 year old female past medical history significant for coronary disease, non-ST elevation LA nonobstructive coronary artery disease had been complaining of off-and-on chest pain despite of optimization of medicine. Stress test in the October was negative. For the past few weeks patient has been having chest pain at rest and upon exertion she was admitted last night as she was awakened from the sleep because of the chest pain. She was ruled out for acute coronary syndrome, since she continues to have chest pain relieved with nitroglycerin and requiring frequent morphine this time we decided to proceed with coronary angiogram. Patient has been explained all risk benefit and alternative for the procedure. She would like to proceed with it. Patient has history of carpal tunnel surgery in the right wrist therefore we have to proceed through right common femoral artery approach. Review of Systems General: Reports: 10 or more systems reviewed and unremarkable except in HPI and below Const: Reports: diaphoresis; Denies: fever(s), chills, body aches, fatigue or malaise Eyes: Denies: change in vision, blurry vision, blind spots, photophobia, eye discharge or eye redness ENMT: Reports: hoarseness; Denies: throat pain, enlarged tonsils, odynophagia, swelling of lips/tongue, oral sores, ear or mastoid pain, ear discharge, change in hearing, nasal discharge or nasal congestion Card: Denies: chest pain, palpitations, irregular heart rhythm, edema, swelling of feet/ankles, lightheadedness, syncope, pre-syncope, dyspnea on exertion or orthopnea Resp: Denies: dyspnea, productive cough, non-productive cough, wheezing, stridor, pain on inspiration, change in phlegm color, hemoptysis or chest congestion GI: Denies: abdominal pain, nausea, vomiting, hematemesis, coffee ground emesis, dysphagia, heartburn, diarrhea, constipation, GI cramping, change in stool character, hematochezia or melena : Denies: flank pain, difficulty voiding, dysuria, urinary frequency, urinary urgency, urinary hesitancy or hematuria Musc: Denies: neck pain, back pain, extremity pain, extremity swelling, joint pain, joint swelling, joint redness, joint warmth, joint stiffness or deformity Skin/Breast: Denies: rash, pruritus, erythema, skin tenderness or jaundice Neuro: Denies: headache(s), numbness in extremities, weakness in extremities, sensory changes, lack of coordination, difficulty walking, frequent falls, dizziness, vertigo, confusion, behavioral changes, Slurred speech present or seizure-like activity Psych: Denies: anxiety, depression, suicidal ideation or homicidal ideation Endo: Denies: polyuria, polydipsia, tired all the time, cold intolerance or hot flashes Xavier/Lymph: Denies: easy bruising, easy bleeding, petechiae, purpura or enlarged lymph nodes All/Imm: Denies: urticaria, throat swelling, tongue swelling, facial swelling or acute wheezing Meds/Allergies Home Medications and Allergies Home Medications Medication Instructions Recorded Confirmed Last Taken Type doxepin 25 mg capsule 25 mg PO DAILY 11/05/19 04/17/20 04/17/20 History duloxetine 60 mg capsule,delayed 60 mg PO DAILY 11/05/19 04/17/20 04/17/20 History release sprinkle hydroxyzine HCl 25 mg tablet 25 mg PO QID PRN 11/05/19 04/17/20 04/17/20 History nitroglycerin 0.4 mg sublingual 0.4 mg SUBLINGUAL Q5M PRN 11/05/19 04/17/20 04/17/20 History tablet pantoprazole 40 mg tablet,delayed 40 mg PO DAILY 11/05/19 04/17/20 04/17/20 History release ticagrelor 90 mg tablet 90 mg PO BID 11/05/19 04/17/20 04/17/20 History topiramate 50 mg tablet 50 mg PO BID 11/05/19 04/17/20 04/17/20 History ondansetron HCl 4 mg tablet 4 mg PO Q8H PRN 11/07/19 04/17/20 04/17/20 History potassium chloride 20 mEq 20 meq PO DAILY 11/07/19 04/17/20 04/17/20 History tablet,extended release(part/cryst) atorvastatin 40 mg tablet 40 mg PO QDAY #30 tab 02/24/20 04/17/20 04/17/20 Rx budesonide-formoterol HFA 160 2 puff INHALATION Q12H #10.2 gm 02/24/20 04/17/20 04/17/20 Rx mcg-4.5 mcg/actuation aerosol inhaler cholecalciferol (vitamin D3) 1,250 50,000 unit PO .weekly #4 tab 02/24/20 04/17/20 04/13/20 Rx mcg (50,000 unit) tablet metformin 500 mg tablet,extended 1,000 mg PO BID #120 tab 02/24/20 04/17/20 04/17/20 Rx release 24 hr semaglutide 1 mg/dose (2 mg/1.5 1 mg SUBCUT .weekly #3 ml 02/29/20 04/17/20 04/13/20 Rx mL) subcutaneous pen injector cyclobenzaprine 10 mg tablet 10 mg PO TID 30 Days #90 tab 03/04/20 04/17/20 04/17/20 Rx pregabalin 150 mg capsule 150 mg PO BID 30 Days #60 cap 03/04/20 04/17/20 04/17/20 Rx tramadol 50 mg tablet 50 mg PO QID PRN 30 Days #120 tab 03/04/20 04/17/20 04/17/20 Rx albuterol sulfate 90 mcg/actuation 2 puff INHALATION QID PRN 30 Days 03/25/20 04/17/20 04/17/20 Rx aerosol inhaler #6.7 gm pen needle, diabetic 31 gauge x #1,200 each 03/25/20 04/17/20 Unknown Rx 03/01 isosorbide mononitrate 60 mg 60 mg PO BID 90 Days #180 tab 04/12/20 04/17/20 04/17/20 Rx tablet,extended release 24 hr carvedilol [Coreg] 6.25 mg PO BID 04/17/20 04/17/20 04/17/20 History fluticasone furoate-vilanterol See Rx Instructions .ROUTE .COMPLEX 04/17/20 04/17/20 04/17/20 History [Breo Ellipta] lisinopril 2.5 mg PO DAILY 04/17/20 04/17/20 04/17/20 History Allergies Allergy/AdvReac Type Severity Reaction Status Date / Time adhesive Allergy Unknown Verified 04/17/20 16:01 clindamycin Allergy ADR-Itching Verified 04/17/20 16:01 codeine Allergy Unknown Verified 04/17/20 16:01 fentanyl Allergy ALGY-Swell Verified 04/17/20 16:01 Lip/Tongue/Throat hydrocodone Allergy Unknown Verified 04/17/20 16:01 latex Allergy ALGY-Swell Verified 04/17/20 16:01 Lip/Tongue/Throat midazolam [From Versed] Allergy ADR-Itching Verified 04/17/20 16:01 naproxen [From Naprosyn] Allergy Unknown Verified 04/17/20 16:01 nut - unspecified Allergy ALGY-Anaphy Verified 04/17/20 16:01 laxis oxycodone [From Roxicodone] Allergy ADR-Muscle Verified 04/17/20 16:01 Pain Penicillins Allergy Unknown Verified 04/17/20 16:01 sulfamethoxazole Allergy ADR-Migrain Verified 04/17/20 16:01 [From Bactrim] e trimethoprim [From Bactrim] Allergy ADR-Migrain Verified 04/17/20 16:01 e Current Medications Current Medications Generic Name Dose Route Start Last Admin Trade Name Freq PRN Reason Stop Dose Admin Albuterol/Ipratropium 3 ml 04/17/20 20:15 04/18/20 08:29 Duoneb INHALATION 3 ml Q4H.RESPIRATORY PRN Administration SHORTNESS OF BREATH Atorvastatin Calcium 40 mg 04/17/20 21:00 04/17/20 20:23 Lipitor PO 40 mg BEDTIME YUSUF Administration Budesonide 0.25 mg 04/17/20 20:00 04/18/20 08:29 Pulmicort INHALATION 0.25 mg BID.RESPIRATORY YUSUF Administration Carvedilol 6.25 mg 04/17/20 20:00 04/18/20 09:35 Coreg PO 6.25 mg BID YUSUF Administration Cyclobenzaprine HCl 10 mg 04/17/20 21:00 04/18/20 09:36 Flexeril PO 10 mg TID YUSUF Administration Doxepin HCl 25 mg 04/17/20 21:00 04/17/20 23:10 Sinequan PO 25 mg BEDTIME YUSUF Administration Duloxetine HCl 60 mg 04/18/20 09:00 04/18/20 09:35 Cymbalta PO 60 mg DAILY YUSUF Administration Enoxaparin Sodium 95 mg 04/17/20 21:00 04/18/20 12:09 Lovenox SUBCUT Not Given Q12H [facility] Insulin Aspart 0 unit 04/17/20 21:00 04/18/20 11:54 Novolog SUBCUT 4 unit WM&BEDTIME YUSUF Administration Protocol Isosorbide Mononitrate 60 mg 04/17/20 20:15 04/18/20 09:36 Imdur PO 60 mg BID YUSUF Administration Morphine Sulfate 4 mg 04/17/20 19:00 04/18/20 11:18 Morphine IVP 4 mg Q4H PRN Administration SEVERE PAIN Pantoprazole Sodium 40 mg 04/18/20 09:00 04/18/20 09:36 Protonix PO 40 mg DAILY YUSUF Administration Pregabalin 150 mg 04/17/20 21:00 04/18/20 09:35 Lyrica PO 150 mg BID YUSUF Administration Ticagrelor 90 mg 04/18/20 11:05 04/18/20 11:54 Brilinta PO 90 mg BID YUSUF Administration Topiramate 50 mg 04/18/20 09:00 04/18/20 09:35 Topamax PO 50 mg BID YUSUF Administration Tramadol HCl 50 mg 04/17/20 20:47 04/18/20 09:36 Ultram PO 50 mg QID PRN Administration pain PFSH Acute PFSH: Medical History Atherosclerotic heart disease of [place] coronary artery with unspecified angina pectoris Chronic left-sided low back pain Chronic obstructive pulmonary disease, unspecified Chronic pain of left knee Controlled diabetes mellitus with hyperglycemia, without long-term current use of insulin Current every day smoker Encounter for long-term opiate analgesic use Essential hypertension Fibromyalgia Intervertebral disc disorder of lumbar region with myelopathy Low back pain radiating to both legs Lumbosacral spondylosis without myelopathy Opioid contract exists Osteoarthritis of spine at multiple levels Type 2 diabetes mellitus with diabetic autonomic (poly)neuropathy Vitamin D deficiency Surgical History History of arthroscopic surgery of elbow BILATERAL S/p bilateral carpal tunnel release S/P hysterectomy S/P knee surgery RIGHT S/P lumbar fusion DR. Shreya ZAYAS IN [place], [place] L4-L5, L5-S1 Status post lumbar laminectomy Family History Other CAD (coronary artery disease) Cancer Diabetes Social History Smoking and tobacco status: current every day smoker cigarettes Packs smoked per day: 0.75 [ Other cigarette details: 10-15 CIGS DAILY ] Second hand smoke exposure: Yes Smoking risk assessment/counseling performed?: Yes Alcohol intake: former Desire information about alcohol rehabilitation?: No Counseling given: No Desire information about substance/drug rehabilitation?: No Counseling given: No Caregiver/support person: No Lives independently: Yes Household members: family Housing: Manufactured/Mobile home Marital status: service: No Current occupational status: unemployed Pets and animals: Yes History of recent travel: No Current gender identity: Female Dietary Habits: Current diet type/program: diabetic Caffeine: Yes Caffeine intake frequency: carbonated beverages Safety: Seatbelt use: always Helmet use: No Drive intoxicated or ride with intoxicated star route mail driver?: never Home Safety: Firearms in home: No Vitals/I&O/Wt Last Vital Signs Temp 97.7 F 04/18/20 11:25 Pulse 64 04/18/20 11:25 Resp 20 H 04/18/20 11:25 BP 113/64 04/18/20 11:25 Pulse Ox 95 04/18/20 11:25 04/17/20 04/18/20 04/18/20 22:59 06:59 14:59 Intake Total 200 / 200 60 / 260 Output Total 700 / 700 Balance 200 / 200 60 / 260 -700 / -700 Weight last 48 hrs Weight 238 lb 14.4 oz Weight 210 lb Physical Exam Narrative: EXAM NARRATIVE: GENERAL: Patient is alert, awake and oriented x3. NECK: No jugular vein distension. HEENT: No cyanosis. No icterus. No pallor. HEART: Regular S1 and S2. No murmur, rub or gallop. LUNGS: Clear to auscultate bilaterally. ABDOMEN: Soft, nontender and nondistended. Positive bowel sounds. No guarding, rebound or tenderness. CENTRAL NERVOUS SYSTEM: Grossly nonfocal. EXTREMITIES: Lower extremities without edema bilaterally. A&P Assessment and plan (1) Atherosclerotic heart disease of [place] coronary artery with unspecified angina pectoris: Patient has prior history of non-ST elevation LA, she continues to have chest pain she had negative stress test in October she was readmitted to the hospital last night, since her admission she continues to have off-and-on chest pain which could be secondary to unstable angina at this point will proceed with coronary angiogram. Further plan will be advised as per progress of the patient. Status: Acute (2) Chest pain: Worsening of chest pain with increase in frequency during this hospitalization suspicious for angina. We will proceed with angiogram Status: Acute Qualifiers: Chest pain type: unspecified Qualified Code(s): R07.9 - Chest pain, unspecified Coding Level of Care Code New Pt Acute Moth Exterminator for g Fwd Patient Type New History Detailed Exam Detailed Medical Decision Making Moderate Complexity Diagnoses Atherosclerotic heart disease of [place] coronary artery with unspecified angina pectoris I25.119 Chest pain R07.9 Chest pain type: unspecified
--- NOTE | 2020-04-18 14:37 | XACV_ITS ---
Exam Room: [facility] Ht: 168 cm Wt: 97 kg BSA: 2.16 m2 Gender: Female : 1965 Any Known Allergies: Penicillins Exam Priority: Routine Procedure(s): Procedure Description: Diagnostic procedure Procedure Description: PCI procedure Procedure Description: Drug Eluting Coronary Stent Procedure Description: PTCA Procedure Description: Coronary Angiography Diagnostic Cath Status: Elective Diagnostic Findings LM has 0% stenosis. LAD has 0% stenosis. RCA has 0% stenosis. mCIRC: Severe 90% stenosis, USAMA: 3 flow. Coronary angiography shows right dominance. PCI Status: Urgent PCI Indication: New Onset Angina <= 2 months Interventional Findings mCIRC: 90% stenosis treated with MDT R GERARDO 3.0X8 HAILEE. 0% residual stenosis, USAMA: 3 flow. Successful PCI to mid LCx. Lesion was treated with MDT R GERARDO 3.0X8 mm deployed at high FERNANDEZ of 16 mm to ensure proper approximation Jailing of the OM-1 was noted but there was no compromised of marginal ostium however we tried to go across it due to double stent layer, we were not able to cross it since there was no compromised of the obtuse marginal ostium we decided to leave as it is. Excellent angiographic result with USAMA-3 flow was achieved in both circumflex and obtuse marginal. . Conclusions mCIRC was treated with Drug Eluting Stent. 1. Normal left main2. LAD has luminal irregularities without significant stenosis3. LCx has mid severe 90% in-stent restenosis, it is the culprit vessel4. RCA has proximal stent without in-stent restenosis. Recommendations Continue current medical management and risk factor modification. Diagnostic RX Recommendation: PCI w/o planned CABG Pressures Phase:Rest AO : 112 mmHg / 71 mmHg ( 91 mmHg ) @ 10:43:00 AM 129 mmHg / 54 mmHg ( 84 mmHg ) @ 11:05:00 AM Clinical Evaluation EBL: 5mL-10mL Procedural Details Procedure Consent Obtained. Pre-Procedure Time Out. Identified patient by full name and date of as verbalized by the patient/guarantor. Does the consent match the physician's order: Yes. Accurate & Complete Informed Consent: Yes. Inpatient/Outpatient History & Physical on Chart: Yes. If H&P is completed, is and addenduem needed: No; If yes, is the addendum complete: N/A. Visualize and Verify Site with Patient/Guarantor: N/A. Relevant Radiology Images available: Yes. Pre-op teaching completed and patient verbalized understanding. The risks, benefits, and alternatives of sedation and/or procedure were discussed by physician. The patient agrees to continue. Procedure started. Correct patient, site and procedure confirmed by cath team. Current diagnosis: Chest Pain. PERRLA. Strong, equal hand bank officer bilaterally. Lungs clear x 5 lobes. IV Site on Arrival: 20 gauge in the left anticubital. IV Fluids: 0.9% NaCl at KVO. 0 mL infused prior to section laborer. Pre Procedural Pulses: bilateral dorsalis pedis was 2+. Pre Procedural Pulses: bilateral posterior tibial was 2+. Pre Procedural Pulses: right radial was 3+. Oxygen started at 2liters/min via nasal canula. bilateral groins was prepped with chloroprep then draped in the usual sterile fashion. right radial was prepped with chloroprep then draped in the usual sterile fashion. Physician notified. Baseline sample Acquired. HR: 86 BPM. Equipment: 6F - Radial. Cardiac Cath Pack. ACIST Manifold Kit Model BT 2000. Heparinized Saline (2 units/mL), 1000 mL bag. Physician arrived. Physician scrubbed in. Immediate Pre-Procedure Time Out. Correct Patient: Yes; Correct Procedure: Yes; Correct Site: Yes; Correct Patient Position: Yes; Correct Supplies: Yes; Dried Flammable Prep: Yes; Blood Products Available: No;. Lidocaine 1% infiltrated to the right radial. Arterial access obtained. A 5 emirati TIG catheter in over wire. Multiple views taken of left coronary artery. Multiple views taken of right coronary artery. Catheter out. Inventory is TR Glidewire Angled Stiff Shaft .035 260cm. Glidewire inserted. 6 emirati XB 3 guide catheter was inserted over the wire. [place] guidewire was advanced through the guide catheter to lesion in the mid Circ. Inflation Number : 1 Jameson Alexandre GERARDO 3.0X8 HAILEE -Lot Number# [id number] was prepped and advanced across the Mid CX. The stent was deployed at 16 FERNANDEZ for 0:16 seconds. Stent expiration date: 10-30-2021. Stent balloon out over wire. [place] wire out. Runthrough wire inserted. Runthrough out. Results checked. Guide out. ACT drawn. Results 192 seconds. Therapeutic limits - pre-heparin administration 90-150 seconds and monitoring heparin during a vascular procedure >250 seconds. A TR Band was successful obtaining hemostatsis at the Right Radial artery insertion site. Post Procedure: Pulses reassessed and unchanged. PERRLA. Strong, equal hand bank officer bilaterally. No VTE prophylaxis required. Medication's Wasted: Lidocaine 1% = 12 mL. Medication's Wasted: Other = Versed 1 mg. Total IV fluids: 75 mL. Contrast type used: Omnipaque 300 mgI/mL, 500 mL bottle. Post-op diagnosis: Chest Pain. [facility] Clinical Fraility Score: 4: Vulnerable. Radio Adjuster Indications: Suspected CAD. Chest Pain Symptom Assessment: Atypical Angina. Cardiovascular Instability: No. Complications: None. Estimated blood loss: 5mL-10mL. Vital chart was stopped. Procedure completed. Patient transferred by bed to 1st floor. Site: Right Radial artery Sheath Size: 6 Fr Hemostasis Method: TR Band Hemostasis Success: Successful Procedure Medications Start: 3:29 PM Stop: 3:29 PM Medication: Versed Amount: 1 mg Route: I.V. Start: 3:29 PM Stop: 3:29 PM Medication: Fentanyl Amount: 50 mcg Route: I.V. Start: 3:34 PM Stop: 3:34 PM Medication: Versed Amount: 1 mg Route: I.V. Start: 3:41 PM Stop: 3:41 PM Medication: Heparin Amount: 5000 units Route: I.V. Start: 3:48 PM Stop: 3:48 PM Medication: Versed Amount: 1 mg Route: I.V. Start: 3:50 PM Stop: 3:50 PM Medication: Heparin Amount: 5000 units Route: I.V. Start: 3:50 PM Stop: 3:50 PM Medication: Fentanyl Amount: 25 mcg Route: I.V. Start: 4:06 PM Stop: 4:06 PM Medication: Versed Amount: 1 mg Route: I.V. Start: 4:07 PM Stop: 4:07 PM Medication: Fentanyl Amount: 25 mcg Route: I.V. Start: 4:21 PM Stop: 4:21 PM Medication: Heparin Amount: 1000 units Route: I.V. I, the attending physician, have reviewed and verified all procedure medications. Yes, all medications given per verbal order History/Risk Factors Hypertension: No Dyslipidemia: No Peripheral Arterial Disease (PAD): No Myocardial Infarction (MN): No Obesity: Yes Renal Disease: No Tobacco Use: Current/Recent(w/in 1 year) Prior Interventions PCI: Yes CABG: Yes Valve Surgery: No Report Signatures Finalized by:Darrell Jerome MD on 04/21/2020 10:58:10 AM
--- NOTE | 2020-04-18 14:50 | PC.NURSE ---
Pt on phone with family, yelling and cursing on phone. upset that family couldn't come in, have informed this patient multiple times today of no visitor policy.patients family has called multiple times inquiring about visitor policy.
--- NOTE | 2020-04-18 14:51 | P.PN_ITS ---
Subjective Subjective: Interval history: Overnight troponins were uptrending. Patient continues to have some chest pain relieved by morphine and nitrates. Cardiology consult was called and plan is to do cardiac catheterization this afternoon Medications: Reviewed: Yes Vitals/I&O/Wt Last Vital Signs Temp 97.7 F 04/18/20 11:25 Pulse 64 04/18/20 11:25 Resp 20 H 04/18/20 11:25 BP 113/64 04/18/20 11:25 Pulse Ox 95 04/18/20 11:25 04/17/20 04/18/20 04/18/20 22:59 06:59 14:59 Intake Total 200 / 200 60 / 260 Output Total 700 / 700 Balance 200 / 200 60 / 260 -700 / -700 Weight last 48 hrs Weight 108.363 kg Weight 95.254 kg Physical Exam Narrative: EXAM NARRATIVE: GEN: Awake, alert and oriented, no acute distress CVS: S1S2 N RS: CTA B/L Abd: Soft, nt/nd , bs+ BEAM HOUSE INSPECTOR: no focal neuro deficits Data : 04/18/20 04:22 04/18/20 04:22 A&P Assessment and plan (1) Chest pain: Ongoing chest pain in a patient with a prior history of CAD with stent placement. Concern for NSTEMI given rising troponin delta of 15 and 18 No gross evolving changes noted on serial EKGs. Started on Lovenox last night. continue patient on aspirin, carvedilol, atorvastatin Because of persisting chest pain, cardiology service was consulted today and plan is for cardiac catheterization later this afternoon. Of note patient had a stress test in October which was within normal limits. Full code DVT prophylaxis Lovenox. Status: Acute Qualifiers: Chest pain type: unspecified Qualified Code(s): R07.9 - Chest pain, unspecified (2) NSTEMI (non-ST elevated myocardial infarction): As above Status: Acute (3) Chronic obstructive pulmonary disease, unspecified: Not currently exacerbated Status: Acute Qualifiers: COPD type: unspecified COPD Qualified Code(s): J44.9 - Chronic obstructive pulmonary disease, unspecified (4) Leukocytosis: chronic persistent, check peripheral smear for atypical cells Status: Acute Qualifiers: Leukocytosis type: unspecified Qualified Code(s): D72.829 - Elevated white blood cell count, unspecified Attestations Medical Necessity Statement*: Cardiac catheterization today Coding Level of Care Code Acute Turning Machine Operator for [facility] Fwd Diagnoses Chest pain R07.9 Chest pain type: unspecified NSTEMI (non-ST elevated myocardial infarction) I21.4 Chronic obstructive pulmonary disease, unspecified J44.9 COPD type: unspecified COPD Leukocytosis D72.829 Leukocytosis type: unspecified
--- NOTE | 2020-04-18 15:27 | PC.NURSE ---
report called to Olga WALDEN in [facility]
[2020-04-18 16:23] LABS: LAB Peripheral Smear Sent for Review
--- NOTE | 2020-04-18 16:30 | PC.NURSE ---
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
[2020-04-18 17:26] LABS: Glucose Point of Care 112 mg/dL (70-110)
--- NOTE | 2020-04-18 17:29 | PC.NURSE ---
Call placed to Dr. Jerome to clarify orders for Lovenox & Brilinta. Order received to stop lovenox and give Brilinta 90mg BID, with the second dose today be given at 2100.
--- NOTE | 2020-04-18 17:38 | PC.NURSE ---
PASSWORD: LUIS E set up by mother Julia Baum
--- NOTE | 2020-04-18 17:52 | PC.NURSE ---
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 Flexeril was dropped on the floor and wasted (with witness by Linda Durham) Patient states she would prefer to have morphine for her pain as it works best. Patient declined tramadol for her back pain.
--- NOTE | 2020-04-18 18:24 | PC.NURSE ---
After 8 ml of air removed from TR band patient began oozing at right wrist. Re-instilled 5 ml of air to stop oozing.
--- NOTE | 2020-04-18 18:46 | PC.NURSE ---
Currently 15ml of air in TR band.
--- NOTE | 2020-04-18 19:37 | PC.NURSE ---
Rounding : Patients TR to R wrist in place. NO hematoma noted. 2mls of air removed no oozing noted. Educated patient not to use wrist to push or pull. Good pulse, color, warmth. Will continue to monitor.
[2020-04-18] MEDS: doxepin 25 mg Capsule PO (20:46)
[2020-04-18] MEDS: hyDROXYzine 25 mg Capsule PO (20:46)
[2020-04-18] MEDS: atorvastatin 40 mg Tablet PO (20:47)
[2020-04-18 20:51] LABS: Glucose Point of Care 271 mg/dL (70-110)
--- NOTE | 2020-04-18 21:35 | PC.NURSE ---
Patient TR band off at this time. Dressing is dry and intact. No hematoma noted. Will continue to monitor. Good radial pulse.
[2020-04-19] VITALS (8 sets, daily range): BP systolic 117–145; BP diastolic 66–86; PULSE 81–94; RESP 17–26; TEMP 36.3–36.8; O2SAT 90–97
[2020-04-19] MEDS: morphine 4 mg/mL SDV 1 mL IVP (01:58)
[2020-04-19] MEDS: TRAMadol 50 mg Tablet PO (04:27)
[2020-04-19 04:39] LABS: Basophils # 0.1 10^3/uL (0.0-0.1); Basophils % 0.8 %; Eosinophils # 0.8 10^3/uL (0.0-0.8); Eosinophils % 5.4 %; Hematocrit 39.4 % (37.0-47.0); Hemoglobin 12.4 g/dL (11.5-15.3); Lymphocytes # 4.6 10^3/uL (0.8-4.8); Lymphocytes % 30.1 %; Mean Corpuscular HGB Conc 31.5 g/dL (30.0-36.0); Mean Corpuscular Hemoglobin 27.9 pg (28.0-34.0); Mean Corpuscular Volume 88.5 fL (81-99); Mean Platelet Volume 9.9 fL (7.4-10.4); Monocytes # 1.3 10^3/uL (0.2-0.9); Monocytes % 8.4 %; Neutrophils # 8.4 10^3/uL (1.8-7.7); Neutrophils % 54.3 %; Nucleated Red Blood Cells % 0 %; Platelet Count 440 10^3/cmm (130-400); Red Blood Count 4.45 10^6/uL (4.1-5.3); Red Cell Distribution Width 14.8 % (12.1-15.1); White Blood Count 15.4 10^3/uL (4.0-10.0)
--- NOTE | 2020-04-19 05:34 | PC.NURSE ---
End of shift: Patient has had a uneventful shift. Patient R wrist is clean dry and intact and free of hematoma. Patient has requested pain medication for her back. and given as prescribed. Patient vitals remain stable and she is alert and oriented. Will continue to monitor.
[2020-04-19 05:39] LABS: Alanine Aminotransferase 13 U/L (0-33); Albumin Level 3.5 g/dL (3.5-5.2); Alkaline Phosphatase 98 IU/L (35-105); Anion Gap 15.5 (5-19); Aspartate Amino Transferase 11 U/L (0-32); Blood Urea Nitrogen 12 mg/dL (6-20); Calcium 9.3 mg/dL (8.5-10.5); Carbon Dioxide 23 mmol/L (22-29); Chloride 101 mmol/L (98-107); Globulin 3.1 g/dL (1.3-4.6); Glomerular Filtration Rate 75.3 mL/min (90-130); Glucose 249 mg/dL (65-115); Osmolality Calculated 284 mOsm/kg (285-295); Potassium 4.5 mmol/L (3.5-5.1); Sodium 135 mmol/L (136-145); Total Bilirubin 0.2 mg/dL (0.15-1.2); Total Protein 6.6 g/dL (6.6-8.7)
[2020-04-19 06:30] LABS: Glucose Point of Care 241 mg/dL (70-110)
--- NOTE | 2020-04-19 08:31 | P.PN_ITS ---
Subjective Subjective: Interval history: Patient underwent a cardiac catheterization followed by PCI of the circumflex artery lesion. Currently she is doing okay with no recurrence of chest pain. No other specific complaints. No significant arrhythmias on the monitor. Vital signs are remaining stable. She is afebrile. Medications: Reviewed: Yes Medication Review Details: Current Medications Acetaminophen (Tylenol) 650 mg PO Q6H PRN PRN Reason: Mild/Mod Pain Or Temp >/= 101 Al Hydrox/Mg Hydrox/Simethicone (Maalox) 30 ml PO Q15M PRN PRN Reason: INDIGESTION Albuterol/Ipratropium (Duoneb) 3 ml INHALATION Q4H.RESPIRATORY PRN PRN Reason: SHORTNESS OF BREATH Last Admin: 04/18/20 21:08 Dose: 3 ml Documented by: Aspirin (Aspirin Ec) 81 mg PO DAILY [facility] Atorvastatin Calcium (Lipitor) 40 mg PO BEDTIME [facility] Last Admin: 04/18/20 20:47 Dose: 40 mg Documented by: Budesonide (Pulmicort) 0.25 mg INHALATION BID.RESPIRATORY YUSUF Last Admin: 04/18/20 21:08 Dose: 0.25 mg Documented by: Carvedilol (Coreg) 6.25 mg PO BID [facility] Last Admin: 04/18/20 17:46 Dose: 6.25 mg Documented by: Cyclobenzaprine HCl (Flexeril) 10 mg PO TID [facility] Last Admin: 04/18/20 20:47 Dose: 10 mg Documented by: Dextrose (D50w) 25 ml IVP ONCE PRN; Protocol PRN Reason: hypoglycemia protocol Dextrose (D50w) 50 ml IVP PRN PRN; Protocol PRN Reason: hypoglycemia protocol Doxepin HCl (Sinequan) 25 mg PO BEDTIME [facility] Last Admin: 04/18/20 20:46 Dose: 25 mg Documented by: Duloxetine HCl (Cymbalta) 60 mg PO DAILY [facility] Last Admin: 04/18/20 09:35 Dose: 60 mg Documented by: Furosemide (Lasix) 40 mg PO DAILY@0800 [facility] Glucagon (Glucagen) 1 mg IM ONCE PRN; Protocol PRN Reason: Adult Acute Hypoglycemia Prot. Hydroxyzine Pamoate (Vistaril) 25 mg PO QID PRN PRN Reason: Anxiety Last Admin: 04/18/20 20:46 Dose: 25 mg Documented by: Dextrose (D5w) 500 mls @ 100 mls/hr IV ONCE PRN; Protocol PRN Reason: Adult Acute Hypoglycemia Prot Sodium Chloride (Sodium Chloride 0.9%) 1,000 mls @ 50 mls/hr IV .Q20H ONE Stop: 04/19/20 10:21 Last Admin: 04/18/20 17:14 Dose: Not Given Documented by: Insulin Aspart (Novolog) 0 unit SUBCUT WM&BEDTIME [facility]; Protocol Last Admin: 04/18/20 20:47 Dose: 10 unit Documented by: Isosorbide Mononitrate (Imdur) 60 mg PO BID [facility] Last Admin: 04/18/20 17:46 Dose: 60 mg Documented by: Magnesium Hydroxide (Milk Of Magnesia) 30 ml PO DAILY PRN PRN Reason: CONSTIPATION Morphine Sulfate (Morphine) 4 mg IVP Q4H PRN PRN Reason: SEVERE PAIN Last Admin: 04/19/20 01:58 Dose: 4 mg Documented by: Naloxone HCl (Narcan) 0.1 mg IVP Q2M PRN PRN Reason: OPIATERV Nitroglycerin (Nitrostat) 0.4 mg SUBLINGUAL Q5M PRN PRN Reason: chest pains Ondansetron HCl (Zofran) 4 mg IVP Q6H PRN PRN Reason: NAUSEA AND VOMITING Pantoprazole Sodium (Protonix) 40 mg PO DAILY [facility] Last Admin: 04/18/20 09:36 Dose: 40 mg Documented by: Pregabalin (Lyrica) 150 mg PO BID [facility] Last Admin: 04/18/20 17:46 Dose: 150 mg Documented by: Ticagrelor (Brilinta) 90 mg PO BID [facility] Last Admin: 04/18/20 20:46 Dose: 90 mg Documented by: Topiramate (Topamax) 50 mg PO BID [facility] Last Admin: 04/18/20 17:46 Dose: 50 mg Documented by: Tramadol HCl (Ultram) 50 mg PO QID PRN PRN Reason: pain Last Admin: 04/19/20 04:27 Dose: 50 mg Documented by: Vitals/I&O/Wt Last Vital Signs Temp 98.1 F 04/19/20 04:00 Pulse 81 04/19/20 04:00 Resp 24 H 04/19/20 04:00 BP 117/71 04/19/20 04:00 Pulse Ox 90 04/19/20 04:00 04/18/20 04/19/20 04/19/20 22:59 06:59 14:59 Intake Total 720 / 720 240 / 960 Balance 720 / 20 240 / 260 Weight last 48 hrs Weight 240 lb 11.2 oz Weight 238 lb 14.4 oz Weight 210 lb Physical Exam Narrative: EXAM NARRATIVE: GENERAL: The patient is alert and oriented times three. Not in any acute distress. [] HEENT: No significant pallor, icterus or lymphadenopathy.Oral cavity: There are no mucous membrane lesions. NECK: Trachea appears to be central. No masses noted. No JVD or thyromegaly appreciated. RESPIRATORY: Chest is symmetrical. No intercostals muscle retraction or any accessory muscle activation. There is no chest wall tenderness. Breath sounds are heard bilaterally. No rales or rhonchi heard. No evidence of any consolidation. [] BREASTS: Deferred. [] HEART: The heart sounds are normal. No S3 or S4. Short systolic murmur in the left sternal border. No diastolic murmurs. No pericardial rub ABDOMEN: No vessel pulsations or distention. No tenderness. No organomegaly appreciated. Bowel sounds are normally heard. [] : Deferred. [] RECTAL: Deferred. [] LYMPHATIC: No lymphadenopathy noted in the neck or groin. [] EXTREMITIES: Trace edema with no cyanosis. The arteriotomy site has no hematoma or bleeding. The arteriotomy site has no hematoma or bleeding MUSCULOSKELETAL: No acute joint deformities or swelling SKIN: There are no significant rashes or ecchymosis NEUROPSYCHIATRIC: The patient is alert and oriented x3. Appears to be in a good mood. No tremors or rigidity noted. [] Data : 04/19/20 04:02 04/19/20 04:02 Other Labs: Laboratory Last Values WBC 15.4 10^3/uL (4.0-10.0) H 04/19/20 04:02 RBC 4.45 10^6/uL (4.1-5.3) 04/19/20 04:02 Hgb 12.4 g/dL (11.5-15.3) 04/19/20 04:02 Hct 39.4 % (37.0-47.0) 04/19/20 04:02 MCV 88.5 fL (81-99) 04/19/20 04:02 MCH 27.9 pg (28.0-34.0) L 04/19/20 04:02 MCHC 31.5 g/dL (30.0-36.0) 04/19/20 04:02 RDW 14.8 % (12.1-15.1) 04/19/20 04:02 Plt Count 440 10^3/cmm (130-400) H 04/19/20 04:02 MPV 9.9 fL (7.4-10.4) 04/19/20 04:02 Neut % (Auto) 54.3 % 04/19/20 04:02 Lymph % (Auto) 30.1 % 04/19/20 04:02 Vance % (Auto) 8.4 % 04/19/20 04:02 Eos % (Auto) 5.4 % 04/19/20 04:02 Baso % (Auto) 0.8 % 04/19/20 04:02 Neut # (Auto) 8.4 10^3/uL (1.8-7.7) H 04/19/20 04:02 Lymph # (Auto) 4.6 10^3/uL (0.8-4.8) 04/19/20 04:02 Vance # (Auto) 1.3 10^3/uL (0.2-0.9) H 04/19/20 04:02 Eos # (Auto) 0.8 10^3/uL (0.0-0.8) 04/19/20 04:02 Baso # (Auto) 0.1 10^3/uL (0.0-0.1) 04/19/20 04:02 Nucleated RBC % (auto) 0 % 04/19/20 04:02 Nucleated RBCs # 0.0 /100WBC 04/19/20 04:02 Sodium 135 mmol/L (136-145) L 04/19/20 04:02 Potassium 4.5 mmol/L (3.5-5.1) 04/19/20 04:02 Chloride 101 mmol/L (98-107) 04/19/20 04:02 Carbon Dioxide 23 mmol/L (22-29) 04/19/20 04:02 Anion Gap 15.5 (5-19) 04/19/20 04:02 BUN 12 mg/dL (6-20) 04/19/20 04:02 Creatinine 0.8 mg/dL (0.5-0.9) 04/19/20 04:02 GFR Calculation 75.3 mL/min (90-130) L 04/19/20 04:02 Glucose 249 mg/dL (65-115) H 04/19/20 04:02 POC Glucose 241 mg/dL (70-110) 04/19/20 06:22 Calculated Osmolality 284 mOsm/kg (285-295) L 04/19/20 04:02 Calcium 9.3 mg/dL (8.5-10.5) 04/19/20 04:02 Total Bilirubin 0.2 mg/dL (0.15-1.2) 04/19/20 04:02 AST 11 U/L (0-32) 04/19/20 04:02 ALT 13 U/L (0-33) 04/19/20 04:02 Alkaline Phosphatase 98 IU/L (35-105) 04/19/20 04:02 Troponin I 6 Hour 34.01 ng/L (0-10) H 04/17/20 20:22 Troponin I Hi Sens Del 18.01 ng/L (0-12) H* 04/17/20 20:22 Troponin T Baseline 16 ng/L (0-10) H 04/17/20 15:28 Troponin T 120 Minute 31.83 ng/L (0-10) H 04/17/20 17:39 Delta Troponin T 15.83 ABS# (0-10) H* 04/17/20 17:39 Total Protein 6.6 g/dL (6.6-8.7) 04/19/20 04:02 Albumin 3.5 g/dL (3.5-5.2) 04/19/20 04:02 Globulin 3.1 g/dL (1.3-4.6) 04/19/20 04:02 A&P Assessment and plan (1) NSTEMI (non-ST elevated myocardial infarction): Patient status post cardiac cauterization, status post PCI of the circumflex artery, currently seems to be stable. May continue on the aspirin, Brilinta, statin, beta-nany and the other current medications. Status: Acute (2) Dyslipidemia: May continue on the current medications. Follow-up evaluation as scheduled. Status: Acute (3) Chronic obstructive pulmonary disease, unspecified: Management as per the primary care. Status: Acute Qualifiers: COPD type: unspecified COPD Qualified Code(s): J44.9 - Chronic obstructive pulmonary disease, unspecified (4) Essential hypertension: Currently normotensive. Continue on the current medications. Status: Chronic (5) Controlled diabetes mellitus with hyperglycemia, without long-term current use of insulin: Patient requires aggressive management of the diabetes. May be appropriate to add Jardiance to the current medications because of the cardiovascular benefits. Status: Chronic Qualifiers: Diabetes mellitus type: type 2 Qualified Code(s): E11.65 - Type 2 diabetes mellitus with hyperglycemia Additional A&P Information Other problems are Uncontrolled blood sugar Elevated WBC [id number] as per the primary If the patient continues remain stable, may be discharged home from a cardiac standpoint. She need to be seen in the clinic by the nurse practitioner next Tuesday or Tuesday. Please make an appointment to be seen by Dr. Jerome in 3 weeks. Attestations Medical Necessity Statement*: Disposition as per the primary Coding Level of Care Code Acute Group Fitness Assistant Department Head for [facility] Fwd Diagnoses NSTEMI (non-ST elevated myocardial infarction) I21.4 Dyslipidemia E78.5 Chronic obstructive pulmonary disease, unspecified J44.9 COPD type: unspecified COPD Essential hypertension I10 Controlled diabetes mellitus with hyperglycemia, without long-term current use of insulin E11.65 Diabetes mellitus type: type 2
[2020-04-19] MEDS: ipratropium-albuterol 3 mL Neb INHALATION (08:47)
[2020-04-19] MEDS: budesonide 0.5 mg/2 mL Neb 0.25 MG INHALATION (08:47)
[2020-04-19] MEDS: topiramate 25 mg Tablet 50 MG PO (08:53)
[2020-04-19] MEDS: ticagrelor 90 mg Tablet PO (08:53)
[2020-04-19] MEDS: isosorbide mononitrate ER 60 mg Tablet PO (08:53)
[2020-04-19] MEDS: duloxetine 60 mg Capsule PO (08:53)
[2020-04-19] MEDS: pantoprazole DR 40 mg Tablet PO (08:54)
[2020-04-19] MEDS: pregabalin 150 mg Capsule PO (08:54)
[2020-04-19] MEDS: carvedilol 6.25 mg Tablet PO (08:54)
[2020-04-19] MEDS: cyclobenzaprine 10 mg Tablet PO (08:54)
[2020-04-19] MEDS: aspirin 81 mg EC Tablet PO (08:54)
[2020-04-19] MEDS: FUROsemide 40 mg Tablet PO (09:23)
[2020-04-19 11:51] LABS: Glucose Point of Care 262 mg/dL (70-110)
--- NOTE | 2020-04-19 12:19 | P.DS_ITS ---
Discharge Providers Date of Admission: 04/18/20 19:04 Date of Discharge: April 19, 2020 Attending Provider at Admission: Elke Gresham MD Attending Provider at Discharge: Elke Gresham MD Primary Care Provider: CHARLOTTE Pugh Diagnoses at Discharge Discharge Diagnosis (1) NSTEMI (non-ST elevated myocardial infarction): Status: Acute (2) Dyslipidemia: Status: Acute (3) Chronic obstructive pulmonary disease, unspecified: Status: Acute Qualifiers: COPD type: unspecified COPD Qualified Code(s): J44.9 - Chronic obstructive pulmonary disease, unspecified (4) Essential hypertension: Status: Chronic (5) Controlled diabetes mellitus with hyperglycemia, without long-term current use of insulin: Status: Chronic Qualifiers: Diabetes mellitus type: type 2 Qualified Code(s): E11.65 - Type 2 diabetes mellitus with hyperglycemia Reason for Visit Reason for Visit: CHEST PAIN Discharge Data Data Completed and Pending: Completed Studies During Hospitalization Category Date Time Status XR chest 1V calin ble [id number] Urgent Exams 04/17/20 14:25 Completed Pending at discharge Category Date Time 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 Routin e Exams 04/18/20 14:37 Ordered Comprehensive Met abolic Panel AM LA BS Lab 04/20/20 04:00 Ordered Labs from last 24 hours 04/19/20 04/19/20 04/19/20 11:47 06:22 04:02 WBC 15.4 H RBC 4.45 Hgb 12.4 Hct 39.4 MCV 88.5 MCH 27.9 L MCHC 31.5 RDW 14.8 Plt Count 440 H MPV 9.9 Neut % (Auto) 54.3 Lymph % (Auto) 30.1 Stark % (Auto) 8.4 Eos % (Auto) 5.4 Baso % (Auto) 0.8 Neut # (Auto) 8.4 H Lymph # (Auto) 4.6 Stark # (Auto) 1.3 H Eos # (Auto) 0.8 Baso # (Auto) 0.1 Nucleated RBC % (a uto) 0 Nucleated RBCs # 0.0 Sodium Potassium Chloride Carbon Dioxide Anion Gap BUN Creatinine GFR Calculation Glucose POC Glucose 262 241 Calculated Osmolal ity Calcium Total Bilirubin AST ALT Alkaline Phosphata se Total Protein Albumin Globulin 04/19/20 04/18/20 04/18/20 04:02 20:22 17:21 WBC RBC Hgb Hct MCV MCH MCHC RDW Plt Count MPV Neut % (Auto) Lymph % (Auto) Stark % (Auto) Eos % (Auto) Baso % (Auto) Neut # (Auto) Lymph # (Auto) Stark # (Auto) Eos # (Auto) Baso # (Auto) Nucleated RBC % (a uto) Nucleated RBCs # Sodium 135 L Potassium 4.5 Chloride 101 Carbon Dioxide 23 Anion Gap 15.5 BUN 12 Creatinine 0.8 GFR Calculation 75.3 L Glucose 249 H POC Glucose 271 112 Calculated Osmolal ity 284 L Calcium 9.3 Total Bilirubin 0.2 AST 11 ALT 13 Alkaline Phosphata se 98 Total Protein 6.6 Albumin 3.5 Globulin 3.1 Vitals: Last Vital Signs Temp 98.1 F 04/19/20 04:00 Pulse 91 04/19/20 08:53 Resp 18 04/19/20 08:49 BP 117/71 04/19/20 04:00 Pulse Ox 96 04/19/20 08:49 Discharge Plan Discharge Patient Disposition: Home, Self-Care Condition: Stable Prescriptions: New aspirin 81 mg Tablet,Delayed Release (Dr/Ec) 81 mg PO DAILY 30 Days RF: 0 Continued tramadol [Ultram] 50 mg tablet 50 mg PO QID PRN (Reason: pain) 30 Days Qty: 120 RF: 2 pregabalin [Lyrica] 150 mg capsule 150 mg PO BID 30 Days Qty: 60 RF: 2 cyclobenzaprine 10 mg tablet 10 mg PO TID 30 Days Qty: 90 RF: 2 atorvastatin 40 mg tablet 40 mg PO QDAY Qty: 30 RF: 2 budesonide-formoterol [Symbicort] 160-4.5 mcg/actuation HFA aerosol inhaler 2 puff INHALATION Q12H Qty: 10.2 RF: 2 cholecalciferol (vitamin D3) 1,250 mcg (50,000 unit) tablet 50,000 unit PO .weekly Qty: 4 RF: 2 metformin 500 mg tablet extended release 24 hr 1,000 mg PO BID Qty: 120 RF: 2 potassium chloride 20 mEq tablet,ER particles/crystals 20 meq PO DAILY RF: 0 Brilinta 90 mg tablet 90 mg PO BID RF: 0 doxepin 25 mg capsule 25 mg PO DAILY RF: 0 topiramate 50 mg tablet 50 mg PO BID RF: 0 hydroxyzine HCl 25 mg tablet 25 mg PO QID PRN (Reason: Anxiety) RF: 0 duloxetine 60 mg capsule, delayed rel sprinkle 60 mg PO DAILY RF: 0 nitroglycerin 0.4 mg tablet, sublingual 0.4 mg SUBLINGUAL Q5M PRN (Reason: chest pains) RF: 0 pantoprazole [Protonix] 40 mg tablet,delayed release (DR/EC) 40 mg PO DAILY RF: 0 ondansetron HCl [Zofran] 4 mg tablet 4 mg PO Q8H PRN (Reason: nausea/vomiting) RF: 0 Ozempic 1 mg/dose (2 mg/1.5 mL) pen injector 1 mg SUBCUT .weekly Qty: 3 RF: 2 albuterol sulfate [Ventolin HFA] 90 mcg/actuation HFA aerosol inhaler 2 puff INHALATION QID PRN (Reason: shortness of breath or wheezing) 30 Days Qty: 6.7 RF: 5 (DME) pen needle, diabetic [Easy Comfort Pen Magnolia] 31 gauge x 5/16 needle See Rx Instructions .ROUTE .MEDSUPPLY Qty: 1,200 RF: 0 isosorbide mononitrate 60 mg tablet extended release 24 hr 60 mg PO BID 90 Days Qty: 180 RF: 3 Breo Ellipta 200-25 mcg/dose blister with device See Rx Instructions .ROUTE .COMPLEX RF: 0 Coreg 6.25 mg tablet 6.25 mg PO BID RF: 0 lisinopril 2.5 mg tablet 2.5 mg PO DAILY RF: 0 Discharge Orders: Discharge Order (Routine); Ordered 04/19/20 Ordered By: Elke Gresham Referrals: Genevieve Crespo FNP-C [Primary Care Provider] - 4-7 days (Post AMI follow up, needs w/upo for persisting leukocytosis ) Darrell Jerome MD [Physician] - 1 month Aurea Walters FNP [Nurse Practitioner] - 7-10 days Discharge Diet: Cardiac and Diabetic Discharge Activity: Resume usual activity Discharge Attestations Time Spent in Discharge Care*: less than 30 min Quality Metrics Clinical Quality Measures During this hospital stay, did patient experience: AMI Clinical Trial P articipant: No Contraindication to aspirin (AMI): Aspirin given Contraindication to statin: Statin prescribed Contraindication to PCI: PCI performed Coding Level of Care Code Acute Numerical Analysis Group Manager for [facility] Fwd Diagnoses NSTEMI (non-ST elevated myocardial infarction) I21.4 Dyslipidemia E78.5 Chronic obstructive pulmonary disease, unspecified J44.9 COPD type: unspecified COPD Essential hypertension I10 Controlled diabetes mellitus with hyperglycemia, without long-term current use of insulin E11.65 Diabetes mellitus type: type 2
--- NOTE | 2020-04-19 12:50 | PC.CHAP ---
Pastoral Care Encounter/Spiritual Assessment Type of Contact [] Declined swimmer visit [] Patient/Family/Request visit [] Outpatient visit [] Follow-up visit [] Physician referral [] Code/Alert [X] Routine visit [] Staff referral [] Actively dying [] Patient sleeping [] Family support [] [] Out of room [] Palliative care [] [] Receiving care in room [] Pre-surgical visit [] Trauma [] Long length of stay [] ICU visit [] Other: Relational/Emotional Strength [] Patient feels connected with others/family/visitors/staff [] Distress [] Loneliness/isolation [] Abandonment Spirituality of Patient [] Person of Mary [] Attends Congregational of their Mary [] Believes in Prayer [] Reads Bible or Yazidi materials [] There are Spiritual issues to be addressed Ticket Marker Interventions [] Prayer [] Active listening [] Non-anxious presence [] Spiritual/emotional support [] Crisis/trauma care [] Spiritual counseling [] Bereavement support [] Provided bereavement packet [] Provided Bible/devotional materials [] Provided toy/stuffed animal, coloring book to patient or family member [] Provided Communion [] Anointing/[place] [] Salvation [] Completed spiritual assessment [] Other: Impact on Illness or Injury [] Angry [] Fearful [] Anxious [] Often cries [] Exhaustion [] Unable to work [] Unable to attend mosque [] Unable to walk/stand [] Unable to read [] Unable to drive [] Unable to eat/drink [] Unable to sleep [] Unable to be with family [] Patient intubated [] Other: Summary Time spent with patient
--- NOTE | 2020-04-19 13:15 | PC.NURSE ---
Patient states she does not have anyBrilinta at home, even thoughit was listed as an active home medicine. I contacted Dr. Gresham to notify her and request a wrtten prescription for patient.
--- NOTE | 2020-04-19 13:30 | PC.NURSE ---
Called patient's sisterKavita to pick patient up at ER entrance.
--- NOTE | 2020-04-19 14:32 | PC.NURSE ---
Printed brilinta prescription given to patient Discussed again, the importance of taking Brilinta as prescribed. Notified patient that [facility] pharmacy was open today and offered patient Brilinta discount card.
--- NOTE | 2020-04-21 15:35 | PC.RESP ---
Smoking Cessation and Pulmonary Rehab information sent to patient.
== END 2020-04-19 15:40 | disposition home or self-care (01) | DRG 247 ==
LOC: ER 16:43 → MEDSURG 17:31 → CSU 04-18 16:52
PROVIDERS: Emergency Medicine; Internal Medicine Cardiovascular Disease; Physician Assistant; Admitting Provider Student in an Organized Health Care Education/Training Program; PCP Nurse Practitioner Family; Visit Provider Student in an Organized Health Care Education/Training Program
PROC: 027034Z Dilation of Coronary Artery, One Artery with Drug-eluting Intraluminal Device, Percutaneous Approach (ICD-10-PCS; principal; 2020-04-18 14:00)
PROC: 027034Z Dilation of Coronary Artery, One Artery with Drug-eluting Intraluminal Device, Percutaneous Approach (ICD-10-PCS; 2020-04-18 14:00)
DX: I25.118 Atherosclerotic heart disease of native coronary artery with other forms of angina pectoris (principal); I25.2 Old myocardial infarction; I10 Essential (primary) hypertension; J44.9 Chronic obstructive pulmonary disease, unspecified; E78.5 Hyperlipidemia, unspecified; E11.65 Type 2 diabetes mellitus with hyperglycemia; Z79.84 Long term (current) use of oral hypoglycemic drugs; E55.9 Vitamin D deficiency, unspecified; M47.899 Other spondylosis, site unspecified; E11.42 Type 2 diabetes mellitus with diabetic polyneuropathy; G89.29 Other chronic pain; F17.210 Nicotine dependence, cigarettes, uncomplicated; M79.7 Fibromyalgia; E66.9 Obesity, unspecified; Z68.38 Body mass index [BMI] 38.0-38.9, adult
CPT/HCPCS: 12345; 36415; 36416; 71045; 80053; 80500; 82962; 84484; 85025; 85347; 93005; 93454; 94640; 96372; 96375; 99283; C1769; C1874; C1887; C1894; C9600; G0378; J1170; J1644; J1650; J1815; J2001; J2250; J2270; J2405; J3010; J7030; J7626; Q9967

== ENCOUNTER → 2020-04-28 09:30 | Outpatient (BNVA) | payer MEDICARE, MEDICAID, SELFPAY | PROVIDERS: PCP Nurse Practitioner Family; Visit Provider Nurse Practitioner Family | DX: I25.119 Atherosclerotic heart disease of native coronary artery with unspecified angina pectoris (principal); I25.2 Old myocardial infarction; F17.210 Nicotine dependence, cigarettes, uncomplicated | CPT/HCPCS: 80048 ==

== ENCOUNTER → 2020-05-14 12:40 | Outpatient (BNVA) | payer MEDICARE, MEDICAID, SELFPAY | PROVIDERS: PCP Nurse Practitioner Family; Visit Provider Nurse Practitioner Family | DX: E11.65 Type 2 diabetes mellitus with hyperglycemia (principal); R82.90 Unspecified abnormal findings in urine; D72.829 Elevated white blood cell count, unspecified | CPT/HCPCS: 80061; 81000; 83036; 84443; 85025 ==

== ENCOUNTER → 2020-05-21 14:53 | Outpatient (BNVA) | payer MEDICARE, MEDICAID, SELFPAY | PROVIDERS: PCP Nurse Practitioner Family; Visit Provider Nurse Practitioner Family | DX: E11.65 Type 2 diabetes mellitus with hyperglycemia (principal); J44.9 Chronic obstructive pulmonary disease, unspecified; E55.9 Vitamin D deficiency, unspecified; F51.01 Primary insomnia; M47.819 Spondylosis without myelopathy or radiculopathy, site unspecified; E11.69 Type 2 diabetes mellitus with other specified complication; D72.829 Elevated white blood cell count, unspecified; I11.0 Hypertensive heart disease with heart failure; I50.9 Heart failure, unspecified; E78.5 Hyperlipidemia, unspecified | CPT/HCPCS: 85025 ==

== ENCOUNTER → 2020-06-09 13:20 | Outpatient (BNVA) | payer MEDICARE, MEDICAID, SELFPAY | PROVIDERS: PCP Nurse Practitioner Family; Visit Provider Internal Medicine | DX: E11.42 Type 2 diabetes mellitus with diabetic polyneuropathy (principal); E11.59 Type 2 diabetes mellitus with other circulatory complications; I25.10 Atherosclerotic heart disease of native coronary artery without angina pectoris; E11.65 Type 2 diabetes mellitus with hyperglycemia; E66.9 Obesity, unspecified; E78.5 Hyperlipidemia, unspecified; G62.9 Polyneuropathy, unspecified; I10 Essential (primary) hypertension; Z86.39 Personal history of other endocrine, nutritional and metabolic disease | CPT/HCPCS: 99204 ==

== ENCOUNTER → 2020-06-10 10:06 | Outpatient (BNVA) | payer MEDICARE, MEDICAID, SELFPAY | PROVIDERS: PCP Nurse Practitioner Family; Visit Provider Anesthesiology | DX: G89.29 Other chronic pain (principal); M54.42 Lumbago with sciatica, left side; M54.41 Lumbago with sciatica, right side; M51.06 Intervertebral disc disorders with myelopathy, lumbar region; M47.817 Spondylosis without myelopathy or radiculopathy, lumbosacral region; M47.819 Spondylosis without myelopathy or radiculopathy, site unspecified; F17.210 Nicotine dependence, cigarettes, uncomplicated; Z79.891 Long term (current) use of opiate analgesic; Z71.6 Tobacco abuse counseling | CPT/HCPCS: 99214 ==

== ENCOUNTER 2020-06-14 15:17 | Emergency (ER) | payer MEDICARE, MEDICAID, SELFPAY ==
[2020-06-14] VITALS (9 sets, daily range): BP systolic 82–139; BP diastolic 57–83; PULSE 83–102; RESP 15–25; TEMP 36.8; O2SAT 94–99; BMI 39.1
--- NOTE | 2020-06-14 15:28 | XRR_ITS ---
PROCEDURE INFORMATION: Exam: XR Chest, 1 View Exam date and time: 06/14/2020 3:30 PM Age: 55 years old Clinical indication: Chest pain; Type not specified; Additional info: Cp TECHNIQUE: Imaging protocol: XR of the chest Views: 1 view. COMPARISON: CR XR chest 1V portable [id number] 04/17/2020 2:54 PM FINDINGS: Lungs: There is unchanged hyperinflation with interstitial prominence/fibrosis. No consolidation. The pulmonary vascularity is within normal limits. Pleural space: Unremarkable. No pleural effusion. No pneumothorax. Heart/Mediastinum: Unremarkable. No cardiomegaly. Bones/joints: No acute abnormality. XR/XR chest 1V portable [id number] IMPRESSION: No acute findings.
--- NOTE | 2020-06-14 15:29 | ECG_ITS ---
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 Measurements Intervals [place] Rate: 97 P: 29 CA: 191 QRS: 26 QRSD: 88 T: 45 QT: 346 QTc: 440 Interpretive Statements SINUS RHYTHM Compared to ECG 04/17/2020 15:59:19 ST (T wave) deviation no longer present Electronically Signed On 06-14-2020 20:54:16 CDT by Troy Joyce M.D. [email or web address], [email or web address] [id number]
[2020-06-14] MEDS: nitroglycerin 0.4 mg sublingual Tablet SUBLINGUAL (15:40)
[2020-06-14] MEDS: sodium chloride 0.9% 1,000 ML 100 ML IV (15:41)
[2020-06-14] MEDS: ondansetron 2 mg/ML SDV 2 mL 4 MG IVP (15:43)
--- NOTE | 2020-06-14 15:58 | W.ED.CHESTPA ---
HPI - Chest Pain General: Chief Complaint: Chest Pain Stated Complaint: CHEST PAIN Time Seen by Provider: 06/14/20 15:22 Source: patient and EMS Mode of arrival: EMS Limitations: no limitations History of Present Illness: HPI narrative: Mrs. Ascencio is a nice 55-year-old female who comes in with multiple complaints. She is complaining of chest pounding or hard forceful beating of her heart. She states it causes discomfort that radiates down the left arm. She is had associated shortness of breath and she has been sweating. Patient also complains of nausea and vomiting and diarrhea. She states every time she tries to eat or drink she gets sick and then throws up. She denies any fevers or chills. She denies any diarrhea. Patient states she has right upper quadrant and epigastric abdominal pain. Patient denies having anything similar to this in the past. Patient denies any other complaints or concerns. Associated symptoms: Reports abdominal pain, dyspnea, nausea and vomiting; Deny diaphoresis, fever(s), palpitations or syncope Review of Systems Const: Denies: fever(s), chills, body aches, fatigue, malaise or diaphoresis Eyes: Denies: change in vision, blurry vision, photophobia, eye discomfort, eye discharge or eye redness ENMT: Denies: throat pain, odynophagia, hoarseness, swelling of lips/tongue, ear or mastoid pain, ear discharge, change in hearing or nasal discharge Card: Reports: chest pain; Denies: palpitations, irregular heart rhythm, edema, lightheadedness, syncope, pre-syncope, dyspnea on exertion or orthopnea Resp: Reports: dyspnea; Denies: productive cough, non-productive cough, wheezing, hemoptysis or chest congestion GI: Reports: abdominal pain, nausea and vomiting; Denies: hematemesis, coffee ground emesis, heartburn, diarrhea, constipation, GI cramping, hematochezia or melena : Denies: flank pain, dysuria, urinary frequency, urinary urgency or hematuria Musc: Denies: neck pain, back pain, extremity pain, extremity swelling, joint pain, joint swelling, joint redness, joint warmth or joint stiffness Skin/Breast: Denies: rash, pruritus, erythema or skin tenderness Neuro: Denies: headache(s), numbness in extremities, weakness in extremities, sensory changes, lack of coordination, difficulty walking, dizziness, vertigo, confusion, Slurred speech present or seizure-like activity Xavier/Lymph: Denies: easy bruising, easy bleeding, petechiae, purpura or enlarged lymph nodes All/Imm: Denies: urticaria, throat swelling, tongue swelling, facial swelling or acute wheezing PFSH ED PFSH: Medical History (Updated 06/14/20 @ 19:33 by Emy Fontenot) Atherosclerotic heart disease of [place] coronary artery with unspecified angina pectoris Chest pain, midsternal Chronic congestive heart failure Chronic left-sided low back pain Chronic obstructive pulmonary disease, unspecified Chronic pain of left knee Congestive heart failure Current every day smoker CVA (cerebral vascular accident) Dyslipidemia Encounter for long-term opiate analgesic use Essential hypertension Fibromyalgia Fibromyalgia, primary Hyperlipidemia, mixed Insomnia Intervertebral disc disorder of lumbar region with myelopathy Low back pain radiating to both legs Lumbosacral spondylosis without myelopathy Opioid contract exists Osteoarthritis of spine at multiple levels Type 2 diabetes mellitus with diabetic autonomic (poly)neuropathy Vitamin D deficiency Surgical History History of arthroscopic surgery of elbow BILATERAL S/p bilateral carpal tunnel release S/P hysterectomy S/P knee surgery RIGHT S/P lumbar fusion DR. Shreya ZAYAS IN [place], [place] L4-L5, L5-S1 Status post lumbar laminectomy Family History Other CAD (coronary artery disease) Cancer Diabetes Social History Smoking and tobacco status: current every day smoker cigarettes Packs smoked per day: 1 [ Other cigarette details: PER PATIENT REPORT ] Second hand smoke exposure: Yes Smoking risk assessment/counseling performed?: Yes Alcohol intake: former Desire information about alcohol rehabilitation?: No Counseling given: No Desire information about substance/drug rehabilitation?: No Counseling given: No Caregiver/support person: No Lives independently: Yes Household members: family Housing: Manufactured/Mobile home Marital status: service: No Current occupational status: unemployed Pets and animals: Yes History of recent travel: No Current gender identity: Female Physical Exam Const: COMMON NORMALS: no acute distress, patient oriented x3, no limitations, healthy appearing and well nourished GENERAL APPEARANCE: cooperative, well kempt and well developed HENMT: COMMON NORMALS: normocephalic, atraumatic, external ears normal, EAC's normal and Normal external nose present HEAD & SCALP: normal to inspection, normocephalic and atraumatic FACE & SINUS: normal facial exam and face symmetric NOSE: Normal external nose present and Normal nares present EXTERNAL EAR: Yes external ears normal EXTERNAL AUDITORY CANAL: EAC's normal MOUTH: Normal oral and palatal mucosa present, lip normal and tongue normal Eye: COMMON NORMALS: Equal, round and reactive pupils present and conjunctivae normal GENERAL EYE: appearance normal, both eyes and all related structures ALIGNMENT: Yes alignment normal PERIORBITAL: periorbital findings normal EYELID: eyelids normal CONJUNCTIVA: Yes conjunctivae normal SCLERA: sclerae normal PUPIL: Yes Equal, round and reactive pupils present Neck/C-Spine: COMMON NORMALS: full ROM, no lymphadenopathy, supple, no meningeal signs and no JVD GENERAL: Yes normal visual inspection and Yes trachea midline Chest: COMMONS NORMALS: normal inspection of the chest and normal palpation of entire chest wall Resp: COMMON NORMALS: normal respiratory effort, No retractions, No use of accessory muscles and clear to auscultation bilaterally EFFORT & INSPECTION: Yes able to speak in complete sentences and Yes symmetric chest movement AUSCULTATION: clear to auscultation bilaterally, no crackles, no rales, no rhonchi and no wheezes Cardio: COMMON NORMALS: no JVD, regular rate, regular rhythm, S1 normal heart sound present and S2 normal heart sound present RATE: regular rate RHYTHM: regular rhythm HEART SOUNDS: S1 normal heart sound present, S2 normal heart sound present, no click, no gallops, no murmurs, no rubs and abnormal split S2 GI: COMMON NORMALS: Soft to palpation and No hepatosplenomegaly present PALPATION: Yes Soft to palpation, Yes Tenderness to palpation present (GI) Details: RUQ, No Guarding due to palpation present (GI), No Rigid due to palpation, Yes No hepatosplenomegaly present, No Hernia present, No Palpable mass present and No Pulsatile mass present : COMMON NORMALS: Yes no CVA tenderness BLADDER/KIDNEY EXAM: Yes no CVA tenderness EXTERNAL FEMALE EXAM: No Hernia present Back/Pelvis: COMMON NORMALS: no CVA tenderness, thoracic and lumbar spine normal to inspection, no thoracic nor lumbar tenderness and thoraco-lumbar ROM normal Extremity: COMMON NORMALS: normal to inspection, full ROM, capillary refill normal, no joint enlargement, no clubbing, cyanosis or edema and no calf tenderness Neuro: COMMON NORMALS: patient oriented x3, CN's II-XII intact bilaterally, moves all extremities, no focal motor deficits and no sensory deficits noted MENINGEAL SIGNS: Yes no meningeal signs SPEECH: speech normal Psych: COMMON NORMALS: mental status grossly normal, Normal thought process present, cooperative, normal affect, speech normal and activity/motor behavior normal APPEARANCE: Yes well kempt SPEECH: Yes normal speech THOUGHT PROCESS: Normal thought process present Skin: COMMON NORMALS: no rashes or lesions noted, turgor normal, no jaundice, no petechiae and no mottling GENERAL SKIN EXAM: no rashes or lesions noted and turgor normal Course Vital Signs: Vital signs: Vital Signs Temperature 98.2 F 06/14/20 15:18 Pulse Rate 83 06/14/20 19:00 Respiratory Rate 15 06/14/20 19:00 Blood Pressure 139/83 06/14/20 19:00 Pulse Oximetry 94 06/14/20 19:00 MDM - Chest Pain MDM Narrative: Medical decision making narrative: Mrs. Ascencio is a nice 55-year-old female who came in complaining of forceful pounding palpitations and chest discomfort. She also related that she had significant epigastric and right upper quadrant abdominal pain. Her EKGs have been unremarkable and her troponins have been unremarkable. Chest x-ray was unrevealing. Patient's gallbladder ultrasound was unremarkable but she continued to have discomfort. The more times I went back and talked her the more she complained of primarily nausea and vomiting and not being able to keep anything down. CT scan revealed duodenitis which I think is the likely cause of her symptoms. This time I see no evidence of acute coronary syndrome, pneumonia, bowel obstruction, among many other things that could be causing her symptoms. Her CT scan did show groundglass opacities in the bases but the patient has no sign or symptom or exposure to COVID, she has no cough, no shortness of breath, her BNP is normal and I believe this is likely atelectasis as she is been laying flat through most of her visit here. Nitroglycerin did nothing for her discomfort. The patient was offered admission but she declined. I talk with her and she understood that a heart problem can be life-threatening she declined to stay and wanted to go home on the medications I am going to prescribe her. She agrees to follow-up with Dr. Luo or another doctor for EGD to recheck this inflammation. She is had no blood in her stools or black tarry stools but she understands she needs to return if this takes place. She otherwise has no complaints or concerns and is feeling better and would like to be discharged. Lab Data: Labs: Lab Results 06/14/20 06/14/20 06/14/20 Range/Units 15:50 15:50 15:50 WBC 16.1 H (4.0-10.0) 10^3/ uL RBC 4.78 (4.1-5.3) 10^6/u L Hgb 13.4 (11.5-15.3) g/dL Hct 41.2 (37.0-47.0) % MCV 86.2 (81-99) fL MCH 28.0 (28.0-34.0) pg MCHC 32.5 (30.0-36.0) g/dL RDW 14.3 (12.1-15.1) % Plt Count 490 H (130-400) 10^3/c mm MPV 9.9 (7.4-10.4) fL Neut % (Auto) 56.6 % Lymph % (Auto) 29.5 % [place] % (Auto) 6.1 % Eos % (Auto) 6.4 % Baso % (Auto) 0.7 % Neut # (Auto) 9.12 H (1.8-7.7) 10^3/u L Lymph # (Auto) 4.8 (0.8-4.8) 10^3/u L [place] # (Auto) 1.0 H (0.2-0.9) 10^3/u L Eos # (Auto) 1.0 H (0.0-0.8) 10^3/u L Baso # (Auto) 0.1 (0.0-0.1) 10^3/u L Nucleated RBC % (a uto) 0 % Nucleated RBCs # 0.0 /100WBC PT 12.00 L (12.1-14.9) SECO NDS INR 0.86 (0.8-1.2) Specimen Type Sample Site ABG pH (7.35-7.45) ABG pCO2 (35-45) mmHg ABG pO2 (80.0-100.0) mmH g ABG HCO3 (22-26) mmol/L ABG Base Excess (-2.0-2.0) mmol/ L Freddy Test Hematocrit (37-47) % O2 Delivery Device FiO2 % [employer] Garment ID Sodium 138 (136-145) mmol/L Potassium 4.2 (3.5-5.1) mmol/L Chloride 103 (98-107) mmol/L Carbon Dioxide 21 L (22-29) mmol/L Anion Gap 18.2 (5-19) BUN 10 (6-20) mg/dL Creatinine 0.8 (0.5-0.9) mg/dL GFR Calculation 75.0 L (90-130) mL/min Glucose 266 H (65-115) mg/dL Calculated Osmolal ity 291 (285-295) mOsm/k g Calcium 8.9 (8.5-10.5) mg/dL Magnesium 1.6 L (1.7-2.3) mg/dL Total Bilirubin 0.2 (0.15-1.2) mg/dL AST 11 (0-32) U/L ALT 19 (0-33) U/L Alkaline Phosphata se 94 (35-105) IU/L Troponin T Baselin e (0-10) ng/L Troponin T 120 Min [place] (0-10) ng/L Delta Troponin T (0-10) ABS# NT-Pro-B Natriuret Pep (0-125) pg/mL Total Protein 7.1 (6.6-8.7) g/dL Albumin 3.9 (3.5-5.2) g/dL Globulin 3.2 (1.3-4.6) g/dL Lipase 100 H (13-60) U/L Urine Color (Yellow) Urine Appearance (CLEAR) Urine pH (5-7) Ur Specific Gravit y (1.005-1.030) Urine Protein (Negative) Urine Glucose (UA) (Normal) Urine Ketones (Negative) Urine Blood (Negative) Urine Nitrate (Negative) Urine Bilirubin (NEGATIVE) Urine Urobilinogen (Negative) mg/dL Ur Leukocyte Maria Elena ase (Negative) 06/14/20 06/14/20 06/14/20 Range/Units 15:50 15:50 17:30 WBC (4.0-10.0) 10^3/ uL RBC (4.1-5.3) 10^6/u L Hgb (11.5-15.3) g/dL Hct (37.0-47.0) % MCV (81-99) fL MCH (28.0-34.0) pg MCHC (30.0-36.0) g/dL RDW (12.1-15.1) % Plt Count (130-400) 10^3/c mm MPV (7.4-10.4) fL Neut % (Auto) % Lymph % (Auto) % [place] % (Auto) % Eos % (Auto) % Baso % (Auto) % Neut # (Auto) (1.8-7.7) 10^3/u L Lymph # (Auto) (0.8-4.8) 10^3/u L [place] # (Auto) (0.2-0.9) 10^3/u L Eos # (Auto) (0.0-0.8) 10^3/u L Baso # (Auto) (0.0-0.1) 10^3/u L Nucleated RBC % (a uto) % Nucleated RBCs # /100WBC PT (12.1-14.9) SECO NDS INR (0.8-1.2) Specimen Type Arterial Sample Site Radial, left ABG pH 7.38 (7.35-7.45) ABG pCO2 37.7 (35-45) mmHg ABG pO2 61.8 L (80.0-100.0) mmH g ABG HCO3 22.1 (22-26) mmol/L ABG Base Excess -2.7 L (-2.0-2.0) mmol/ L Freddy Test Pos Hematocrit 38.5 (37-47) % O2 Delivery Device Room air FiO2 21.0 % [employer] ID [place] Sodium (136-145) mmol/L Potassium (3.5-5.1) mmol/L Chloride (98-107) mmol/L Carbon Dioxide (22-29) mmol/L Anion Gap (5-19) BUN (6-20) mg/dL Creatinine (0.5-0.9) mg/dL GFR Calculation (90-130) mL/min Glucose (65-115) mg/dL Calculated Osmolal ity (285-295) mOsm/k g Calcium (8.5-10.5) mg/dL Magnesium (1.7-2.3) mg/dL Total Bilirubin (0.15-1.2) mg/dL AST (0-32) U/L ALT (0-33) U/L Alkaline Phosphata se (35-105) IU/L Troponin T Baselin e 10 (0-10) ng/L Troponin T 120 Min [place] (0-10) ng/L Delta Troponin T (0-10) ABS# NT-Pro-B Natriuret Pep 23 (0-125) pg/mL Total Protein (6.6-8.7) g/dL Albumin (3.5-5.2) g/dL Globulin (1.3-4.6) g/dL Lipase (13-60) U/L Urine Color (Yellow) Urine Appearance (CLEAR) Urine pH (5-7) Ur Specific Gravit y (1.005-1.030) Urine Protein (Negative) Urine Glucose (UA) (Normal) Urine Ketones (Negative) Urine Blood (Negative) Urine Nitrate (Negative) Urine Bilirubin (NEGATIVE) Urine Urobilinogen (Negative) mg/dL Ur Leukocyte Maria Elena ase (Negative) 06/14/20 06/14/20 Range/Units 17:55 18:00 WBC (4.0-10.0) 10^3/ uL RBC (4.1-5.3) 10^6/u L Hgb (11.5-15.3) g/dL Hct (37.0-47.0) % MCV (81-99) fL MCH (28.0-34.0) pg MCHC (30.0-36.0) g/dL RDW (12.1-15.1) % Plt Count (130-400) 10^3/c mm MPV (7.4-10.4) fL Neut % (Auto) % Lymph % (Auto) % [place] % (Auto) % Eos % (Auto) % Baso % (Auto) % Neut # (Auto) (1.8-7.7) 10^3/u L Lymph # (Auto) (0.8-4.8) 10^3/u L [place] # (Auto) (0.2-0.9) 10^3/u L Eos # (Auto) (0.0-0.8) 10^3/u L Baso # (Auto) (0.0-0.1) 10^3/u L Nucleated RBC % (a uto) % Nucleated RBCs # /100WBC PT (12.1-14.9) SECO NDS INR (0.8-1.2) Specimen Type Sample Site ABG pH (7.35-7.45) ABG pCO2 (35-45) mmHg ABG pO2 (80.0-100.0) mmH g ABG HCO3 (22-26) mmol/L ABG Base Excess (-2.0-2.0) mmol/ L Freddy Test Hematocrit (37-47) % O2 Delivery Device FiO2 % [employer] Garment ID Sodium (136-145) mmol/L Potassium (3.5-5.1) mmol/L Chloride (98-107) mmol/L Carbon Dioxide (22-29) mmol/L Anion Gap (5-19) BUN (6-20) mg/dL Creatinine (0.5-0.9) mg/dL GFR Calculation (90-130) mL/min Glucose (65-115) mg/dL Calculated Osmolal ity (285-295) mOsm/k g Calcium (8.5-10.5) mg/dL Magnesium (1.7-2.3) mg/dL Total Bilirubin (0.15-1.2) mg/dL AST (0-32) U/L ALT (0-33) U/L Alkaline Phosphata se (35-105) IU/L Troponin T Baselin e (0-10) ng/L Troponin T 120 Min [place] 10.79 H (0-10) ng/L Delta Troponin T 0.79 (0-10) ABS# NT-Pro-B Natriuret Pep (0-125) pg/mL Total Protein (6.6-8.7) g/dL Albumin (3.5-5.2) g/dL Globulin (1.3-4.6) g/dL Lipase (13-60) U/L Urine Color Yellow (Yellow) Urine Appearance Clear (CLEAR) Urine pH 5 (5-7) Ur Specific Gravit y 1.010 (1.005-1.030) Urine Protein Neg (Negative) Urine Glucose (UA) 2+ (Normal) Urine Ketones Negative (Negative) Urine Blood Neg (Negative) Urine Nitrate Negative (Negative) Urine Bilirubin Neg (NEGATIVE) Urine Urobilinogen Norm (Negative) mg/dL Ur Leukocyte Maria Elena ase Negative (Negative) Imaging Data^: CXR: Attestation: I personally reviewed and interpreted this imaging study as follows: My impression: Cardiomegaly with mild pulmonary vascular congestion US: Attestation: I personally reviewed and interpreted this imaging study as follows: My impression: Tech interpretation -no acute findings. See formal report. CT Abd/Pel: Radiologist's impression: [place] [address] CT Scan Report Signed Patient: Mayra Ascencio Unit #: [id number] : [id number] Age/Sex: 55 / F ADM Date: 06/14/20 Loc: ER Room/Bed: Attending Dr: Ordering Provider/Ordering MD: Emy Fontenot DO Date of Service: 06/14/20 Procedure(s): CT abdomen pelvis w con* [id number] Accession Number(s): [id number] Report Number: [id number] PROCEDURE INFORMATION: Exam: CT Abdomen And Pelvis With Contrast Exam date and time: 06/14/2020 6:12 PM Age: 55 years old Clinical indication: Abdominal pain; Prior surgery; Surgery date: 6+ months; Surgery type: L-sp, hyst; Patient HX: Epigastric/ruq pain w n/v/d TECHNIQUE: Imaging protocol: Computed tomography of the abdomen and pelvis with intravenous contrast. Radiation optimization: All CT scans at this facility use at least one of these dose optimization techniques: automated exposure control; mA and/or kV adjustment per patient size (includes targeted exams where dose is matched to clinical indication); or iterative reconstruction. Contrast material: OMNI 300; Contrast volume: 95 ml; Contrast route: INTRAVENOUS (IV); COMPARISON: US gall bladder [id number] 06/14/2020 6:09 PM RADIATION DOSE METRICS: Total DLP (mGy-cm): 1606.98 FINDINGS: Lungs: There is ground-glass opacity and interstitial prominence in the lungs compatible with mild pneumonitis, edema and/or atelectasis. Calcified pulmonary granulomata are noted. Liver: There is a diffuse decrease in hepatic parenchymal density, consistent with fatty infiltration. Gallbladder and bile ducts: Normal. No calcified stones. No ductal dilation. Pancreas: Normal. No ductal dilation. Spleen: Normal. No splenomegaly. Adrenals: Normal. No mass. Kidneys and ureters: There is dilatation of the bilateral renal pelves left greater than right but no dilatation of the ureters or obstructing calculi. This is probable bilateral extrarenal pelves. No nephrolithiasis. Stomach and bowel: There is no evidence of intestinal perforation or obstruction. The wall of the distal stomach/duodenal bulb is very thickened and edematous measuring nearly 1.5 cm in thickness image 31. This is concerning for distal gastritis or duodenitis. No definite duodenal or gastric ulcer. The remaining loops of small bowel have an appropriate appearance. Appendix: A normal appendix is identified. Intraperitoneal space: Unremarkable. No free air. No significant fluid collection. Vasculature: The aorta demonstrates moderate atherosclerotic calcification. Lymph nodes: Unremarkable.No enlarged lymph nodes. Bladder: There is nonspecific bladder wall thickening. This may be related to incomplete distention. Reproductive: Unremarkable as visualized. Bones/joints: There is a satisfactory appearance of the postoperative changes in the lumbosacral junction. No acute bony abnormality. Soft tissues: There is a fat-containing umbilical hernia. Other findings: There is no caliectasis. CT/CT abdomen pelvis w con* [id number] IMPRESSION: 1. There is ground-glass opacity and interstitial prominence in the lungs compatible with mild pneumonitis, edema and/or atelectasis. 2. The wall of the distal stomach/duodenal bulb is very thickened and edematous measuring nearly 1.5 cm in thickness. This is concerning for distal gastritis or duodenitis. 3. The remaining loops of bowel have an appropriate appearance. 4. Probable bilateral extrarenal pelves. No hydronephrosis or obstructing calculi. Radiation Dose CTDIVOL = (mGy): DLP = 1606.98 (mGy-cm) Dictated By: Alice Torres Signed By: Alice Torres Signed Date/Time: 06/14/201855 DD/ 54 EKG Data^: EKG 1: Attestation: I personally reviewed and interpreted this EKG as follows: EKG interpretation date: 06/14/20 EKG interpretation time: 15:37 Interpretation: Normal sinus rhythm at 97 beats a minute, no acute ST or T wave changes, normal axis, no blocks, normal intervals. EKG 2: Attestation: I personally reviewed and interpreted this EKG as follows: EKG interpretation date: 06/14/20 EKG interpretation time: 18:39 Interpretation: Normal sinus rhythm at 81 beats a minute, no acute ST or T wave changes, normal axis, no blocks, normal intervals. Discharge Plan Discharge Patient Disposition: Home Clinical Impression: Acute duodenitis Chest pain Qualifiers: Chest pain type: unspecified Qualified Code(s): R07.9 - Chest pain, unspecified Vomiting Qualifiers: Vomiting type: unspecified Vomiting Intractability: non-intractable Nausea presence: with nausea Qualified Code(s): R11.2 - Nausea with vomiting, unspecified Condition: Stable Prescriptions: New Protonix 40 mg tablet,delayed release (DR/EC) 40 mg PO BID 14 Days Qty: 28 RF: 0 Zofran 4 mg tablet 4 mg PO Q6H PRN (Reason: nausea and vomiting) Qty: 20 RF: 0 Carafate 1 gram tablet 1 gm PO Q6H 28 Days Qty: 112 RF: 0 No Action (DME) blood-glucose meter [OneTouch Ultra2 Meter] Kit See Rx Instructions .ROUTE .MEDSUPPLY Qty: 1 RF: 0 (DME) OneTouch Ultra Blue Test Strip Strip See Rx Instructions .ROUTE .MEDSUPPLY Qty: 200 RF: 5 (DME) lancets [OneTouch Delica Plus Lancet] 33 gauge misc See Rx Instructions .ROUTE .MEDSUPPLY Qty: 200 RF: 5 losartan 50 mg tablet 50 mg PO DAILY Qty: 30 RF: 2 topiramate 50 mg tablet 50 mg PO BID RF: 0 hydroxyzine HCl 25 mg tablet 25 mg PO QID PRN (Reason: Anxiety) RF: 0 nitroglycerin 0.4 mg tablet, sublingual 0.4 mg SUBLINGUAL Q5M PRN (Reason: chest pains) RF: 0 pantoprazole [Protonix] 40 mg tablet,delayed release (DR/EC) 40 mg PO DAILY RF: 0 ondansetron HCl [Zofran] 4 mg tablet 4 mg PO Q8H PRN (Reason: nausea/vomiting) RF: 0 (DME) compressor, for nebulizer Device See Rx Instructions .ROUTE .MEDSUPPLY Qty: 1 RF: 0 (DME) nebulizer accessories Kit See Rx Instructions .ROUTE .MEDSUPPLY Qty: 1 RF: 0 Mucinex DM 30-600 mg tablet extended release 12 hr 1 tab PO Q12H PRN (Reason: cough) 14 Days Qty: 28 RF: 0 albuterol sulfate [Ventolin HFA] 90 mcg/actuation HFA aerosol inhaler 2 puff INHALATION QID PRN (Reason: shortness of breath or wheezing) 30 Days Qty: 6.7 RF: 2 metformin 500 mg tablet extended release 24 hr 1,000 mg PO BID 30 Days Qty: 120 RF: 2 duloxetine 60 mg capsule, delayed rel sprinkle 60 mg PO DAILY 30 Days Qty: 30 RF: 2 Coreg 6.25 mg tablet 6.25 mg PO BID Qty: 60 RF: 2 potassium chloride 20 mEq tablet,ER particles/crystals 20 meq PO DAILY 30 Days Qty: 30 RF: 2 budesonide-formoterol [Symbicort] 160-4.5 mcg/actuation HFA aerosol inhaler 2 puff INHALATION Q12H Qty: 10.2 RF: 2 Levemir FlexTouch U-100 Insuln 100 unit/mL (3 mL) insulin pen 10 unit SUBCUT DAILY 30 Days Qty: 3 RF: 2 furosemide [Lasix] 20 mg tablet 20 mg PO DAILY 30 Days Qty: 30 RF: 2 tramadol [Ultram] 50 mg tablet 50 mg PO QID PRN (Reason: pain) 30 Days Qty: 120 RF: 2 pregabalin [Lyrica] 150 mg capsule 150 mg PO BID 30 Days Qty: 60 RF: 0 cyclobenzaprine 10 mg tablet 10 mg PO TID PRN (Reason: muscle spasm) 30 Days Qty: 90 RF: 0 (DME) pen needle, diabetic [Easy Comfort Pen [place]] 31 gauge x 5/16 needle See Rx Instructions .ROUTE .MEDSUPPLY Qty: 1,200 RF: 0 isosorbide mononitrate 60 mg tablet extended release 24 hr 60 mg PO BID 90 Days Qty: 180 RF: 3 Brilinta 90 mg tablet 90 mg PO BID 30 Days Qty: 60 RF: 2 Aspir-81 81 mg Tablet,Delayed Release (Dr/Ec) 81 mg PO DAILY RF: 0 lisinopril 2.5 mg tablet 2.5 mg PO DAILY RF: 0 atorvastatin 40 mg tablet 40 mg PO DAILY RF: 0 Seroquel 50 mg tablet 50 mg PO BEDTIME RF: 0 cholecalciferol (vitamin D3) 1,250 mcg (50,000 unit) tablet 50,000 unit PO Q7D RF: 0 Ozempic 1 mg/dose (2 mg/1.5 mL) pen injector 1 mg SUBCUT Q7D RF: 0 Discharge Orders: Discharge Order (Routine); Ordered 06/14/20 Ordered By: Emy Fontenot Referrals: Abraham Luo MD [Physician] - 1-3 days Genevieve Crespo FNP-C [Primary Care Provider] - 1-3 days Discharge Diet: Clear Liquid Discharge Activity: Increase activity as tolerated Patient Instructions: Chest Pain (ED), Gastritis (ED) Activity Restrictions/Additional Instructions: Please return to the ER immediately for any of the signs or symptoms listed on your discharge instruction sheets, worsening/changing of your symptoms, you are not getting better as quickly as expected, or for ANY other cause or concerns. You have declined further evaluation and care of your heart and of course any heart problem can be life-threatening so if you change your mind, your symptoms return, you pass out or nearly pass out, or have any other cause for concern please return to the ER immediately for recheck. Be certain to follow-up with Dr. Luo for probable endoscopy to further evaluate the inflammation of your bowel. If you develop blood in your stools or your pain does not improve return to the ER for recheck. Follow a clear liquid diet and advance it only once the pain is gone back to a normal diet. Take the Protonix as I have prescribed and then resume your regular dose of Protonix once you are better. Do not take both prescriptions together. Coding Level of Care Code ED Performing Artist for Subhashg Fwd Exam Comprehensive
[2020-06-14 16:11] LABS: Basophils # 0.1 10^3/uL (0.0-0.1); Basophils % 0.7 %; Eosinophils % 6.4 %; Hematocrit 41.2 % (37.0-47.0); Hemoglobin 13.4 g/dL (11.5-15.3); Lymphocytes # 4.8 10^3/uL (0.8-4.8); Lymphocytes % 29.5 %; Mean Corpuscular HGB Conc 32.5 g/dL (30.0-36.0); Mean Corpuscular Volume 86.2 fL (81-99); Mean Platelet Volume 9.9 fL (7.4-10.4); Monocytes % 6.1 %; Neutrophils # 9.12 10^3/uL (1.8-7.7); Neutrophils % 56.6 %; Nucleated Red Blood Cells % 0 %; Platelet Count 490 10^3/cmm (130-400); Red Blood Count 4.78 10^6/uL (4.1-5.3); Red Cell Distribution Width 14.3 % (12.1-15.1); White Blood Count 16.1 10^3/uL (4.0-10.0)
[2020-06-14 16:23] LABS: Alanine Aminotransferase 19 U/L (0-33); Albumin Level 3.9 g/dL (3.5-5.2); Alkaline Phosphatase 94 IU/L (35-105); Anion Gap 18.2 (5-19); Aspartate Amino Transferase 11 U/L (0-32); Blood Urea Nitrogen 10 mg/dL (6-20); Calcium 8.9 mg/dL (8.5-10.5); Carbon Dioxide 21 mmol/L (22-29); Chloride 103 mmol/L (98-107); Globulin 3.2 g/dL (1.3-4.6); Glucose 266 mg/dL (65-115); Lipase 100 U/L (13-60); Magnesium 1.6 mg/dL (1.7-2.3); Osmolality Calculated 291 mOsm/kg (285-295); Potassium 4.2 mmol/L (3.5-5.1); Sodium 138 mmol/L (136-145); Total Bilirubin 0.2 mg/dL (0.15-1.2); Total Protein 7.1 g/dL (6.6-8.7)
[2020-06-14 16:25] LABS: Troponin(5th) Baseline 10 ng/L (0-10)
[2020-06-14 16:27] LABS: INR 0.86 (0.8-1.2)
[2020-06-14 16:41] LABS: Slide Review Slide Review Perform
[2020-06-14 17:07] LABS: NT Pro B Type Natriuretic Pept 23 pg/mL (0-125)
--- NOTE | 2020-06-14 17:14 | USR_ITS ---
PROCEDURE INFORMATION: Exam: US Abdomen, Limited; Right Upper Quadrant Exam date and time: 06/14/2020 6:18 PM Age: 55 years old Clinical indication: Abdominal pain TECHNIQUE: Imaging protocol: US abdomen. Real time ultrasound with image documentation. Limited exam focused on the right upper quadrant. COMPARISON: No relevant prior studies available. FINDINGS: Liver: There is diffuse increased echogenicity of the liver with attenuation of the ultrasound beam compatible with diffuse infiltrative process including fatty infiltration or cirrhosis. Gallbladder: Normal. No gallstones. There is no gallbladder wall thickening. Common bile duct: Normal. No stones. No dilation. Pancreas: Visualized pancreas is unremarkable. Right kidney: Normal. No mass. No hydronephrosis. US/US gall bladder [id number] IMPRESSION: 1. Echogenic liver as above. 2. Otherwise unremarkable exam. No findings of cholecystitis. No duct dilatation.
[2020-06-14] MEDS: magnesium sulfate premix 2 GM/50 ML PIGGYBACK IV (17:16)
--- NOTE | 2020-06-14 17:29 | ECG_ITS ---
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 Measurements Intervals [place] Rate: 81 P: -43 [place]: 196 QRS: 24 QRSD: 90 T: 28 QT: 404 QTc: 470 Interpretive Statements SINUS RHYTHM Compared to ECG 06/14/2020 15:37:30 No significant changes Electronically Signed On 06-16-2020 0:23:39 CDT by Troy Joyce M.D. [email or web address] [facility].[employer]/store/OM/[id number]
[2020-06-14 17:43] LABS: ABG PCO2 37.7 mmHg (35-45); ABG PH Result 7.38 (7.35-7.45); Arterial Blood Gas Hematocrit 38.5 % (37-47); Base Excess ABG -2.7 mmol/L (-2.0-2.0); Blood Gas Allen Test Pos; Blood Gas Operator Identificat MONRO; Blood Gas Sample Site Radial, left; Blood Gas Sample Type Arterial; HCO3 ABG 22.1 mmol/L (22-26); Oxygen Device ROOM AIR; PO2 ABG 61.8 mmHg (80.0-100.0)
--- NOTE | 2020-06-14 18:05 | CTR_ITS ---
PROCEDURE INFORMATION: Exam: CT Abdomen And Pelvis With Contrast Exam date and time: 06/14/2020 6:12 PM Age: 55 years old Clinical indication: Abdominal pain; Prior surgery; Surgery date: 6+ months; Surgery type: L-sp, hyst; Patient HX: Epigastric/ruq pain w n/v/d TECHNIQUE: Imaging protocol: Computed tomography of the abdomen and pelvis with intravenous contrast. Radiation optimization: All CT scans at this facility use at least one of these dose optimization techniques: automated exposure control; mA and/or kV adjustment per patient size (includes targeted exams where dose is matched to clinical indication); or iterative reconstruction. Contrast material: OMNI 300; Contrast volume: 95 ml; Contrast route: INTRAVENOUS (IV); COMPARISON: US gall bladder [id number] 06/14/2020 6:09 PM RADIATION DOSE METRICS: Total DLP (mGy-cm): 1606.98 FINDINGS: Lungs: There is ground-glass opacity and interstitial prominence in the lungs compatible with mild pneumonitis, edema and/or atelectasis. Calcified pulmonary granulomata are noted. Liver: There is a diffuse decrease in hepatic parenchymal density, consistent with fatty infiltration. Gallbladder and bile ducts: Normal. No calcified stones. No ductal dilation. Pancreas: Normal. No ductal dilation. Spleen: Normal. No splenomegaly. Adrenals: Normal. No mass. Kidneys and ureters: There is dilatation of the bilateral renal pelves left greater than right but no dilatation of the ureters or obstructing calculi. This is probable bilateral extrarenal pelves. No nephrolithiasis. Stomach and bowel: There is no evidence of intestinal perforation or obstruction. The wall of the distal stomach/duodenal bulb is very thickened and edematous measuring nearly 1.5 cm in thickness image 31. This is concerning for distal gastritis or duodenitis. No definite duodenal or gastric ulcer. The remaining loops of small bowel have an appropriate appearance. Appendix: A normal appendix is identified. Intraperitoneal space: Unremarkable. No free air. No significant fluid collection. Vasculature: The aorta demonstrates moderate atherosclerotic calcification. Lymph nodes: Unremarkable.No enlarged lymph nodes. Bladder: There is nonspecific bladder wall thickening. This may be related to incomplete distention. Reproductive: Unremarkable as visualized. Bones/joints: There is a satisfactory appearance of the postoperative changes in the lumbosacral junction. No acute bony abnormality. Soft tissues: There is a fat-containing umbilical hernia. Other findings: There is no caliectasis. CT/CT abdomen pelvis w con* [id number] IMPRESSION: 1. There is ground-glass opacity and interstitial prominence in the lungs compatible with mild pneumonitis, edema and/or atelectasis. 2. The wall of the distal stomach/duodenal bulb is very thickened and edematous measuring nearly 1.5 cm in thickness. This is concerning for distal gastritis or duodenitis. 3. The remaining loops of bowel have an appropriate appearance. 4. Probable bilateral extrarenal pelves. No hydronephrosis or obstructing calculi. Radiation Dose CTDIVOL = (mGy): DLP = 1606.98 (mGy-cm)
[2020-06-14 18:20] LABS: Add Urine Microscopic? NO
[2020-06-14] MEDS: iohexol 300 mg/mL 100 mL Btl IV (18:26)
[2020-06-14 18:27] LABS: Troponin 5 2HR 10.79 ng/L (0-10); Troponin 5 2HR Delta 0.79 ABS# (0-10)
[2020-06-14 18:52] LABS: Bilirubin Urine Neg (NEGATIVE); Blood Urine Neg (Negative); Glucose Urine UA 2+ (Normal); Ketones Urine Negative (Negative); Leukocyte Esterase Urine Negative (Negative); Nitrate Urine Negative (Negative); Protein Urine Neg (Negative); Urine Appearance Clear (CLEAR); Urine Color Yellow (Yellow); Urobilinogen Urine Norm (Negative); pH Urine 5 (5-7)
[2020-06-14] MEDS: lidocaine 2% viscous 15 ML, aluminum-mag hydrox-simethicon 30 ML, sucralfate oral liq 1 GM PO (19:31)
[2020-06-14] MEDS: pantoprazole 40 mg SDV 80 MG IVP (19:33)
[2020-06-14 20:07] LABS: H. Pylori IgG Antibody Negative (Negative)
== END 2020-06-14 19:40 | disposition home or self-care (01) ==
PROVIDERS: Emergency Provider Emergency Medicine; PCP Nurse Practitioner Family
DX: R07.9 Chest pain, unspecified (principal); K29.80 Duodenitis without bleeding; R11.2 Nausea with vomiting, unspecified; Z79.4 Long term (current) use of insulin; I50.9 Heart failure, unspecified; J44.9 Chronic obstructive pulmonary disease, unspecified; Z86.73 Personal history of transient ischemic attack (TIA), and cerebral infarction without residual deficits; I11.0 Hypertensive heart disease with heart failure; E78.2 Mixed hyperlipidemia; E11.9 Type 2 diabetes mellitus without complications; F17.210 Nicotine dependence, cigarettes, uncomplicated
CPT/HCPCS: 12345; 36415; 36600; 71045; 74177; 76705; 80053; 81003; 82803; 83690; 83735; 83880; 84484; 85025; 85610; 86677; 93005; 96360; 96361; 96365; 96366; 96367; 96375; 99284; C9113; J0743; J2405; J3475; J7030; Q9967

== ENCOUNTER 2020-07-03 13:14 | Inpatient (IN) | payer MEDICARE, MEDICAID, SELFPAY ==
[2020-07-03] VITALS (20 sets, daily range): BP systolic 89–175; BP diastolic 62–119; PULSE 84–111; RESP 14–26; TEMP 36.5–36.9; O2SAT 88–99; BMI 38.2; BMI 37.3
--- NOTE | 2020-07-03 13:20 | ECG_ITS ---
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 Measurements Intervals [place] Rate: 100 P: 34 [place]: 170 QRS: 42 QRSD: 96 T: 53 QT: 348 QTc: 451 Interpretive Statements SINUS TACHYCARDIA POSSIBLE INFERIOR MYOCARDIAL INFARCTION , PROBABLY OLD [30 ms Q WAVE IN II/aVF] ABNORMAL RHYTHM ECG Compared to ECG 06/14/2020 18:39:15 Myocardial infarct finding now present Sinus rhythm no longer present Electronically Signed On 07-03-2020 19:40:51 CDT by Troy Joyce M.D. [email or web address] center[facility].[employer]/store/OM/[id number]
--- NOTE | 2020-07-03 13:20 | XRR_ITS ---
PROCEDURE INFORMATION: Exam: XR Chest, 1 View Exam date and time: 07/03/2020 1:39 PM Age: 55 years old Clinical indication: Chest pain; Type not specified; Prior surgery; Surgery type: Stents TECHNIQUE: Imaging protocol: XR of the chest Views: 1 view. COMPARISON: CR (CHEST, ) 06/14/2020 3:31 PM FINDINGS: Lungs: Unremarkable. No consolidation. Pleural space: Unremarkable. No pleural effusion. No pneumothorax. Heart/Mediastinum: Unremarkable. No cardiomegaly. Bones/joints: Unremarkable. XR/XR chest 1V portable [id number] IMPRESSION: No acute findings.
[2020-07-03 13:52] LABS: Basophils # 0.1 10^3/uL (0.0-0.1); Basophils % 0.9 %; Eosinophils # 0.5 10^3/uL (0.0-0.8); Eosinophils % 2.9 %; Hematocrit 45.1 % (37.0-47.0); Hemoglobin 14.8 g/dL (11.5-15.3); Lymphocytes % 24.3 %; Mean Corpuscular HGB Conc 32.8 g/dL (30.0-36.0); Mean Corpuscular Hemoglobin 28.1 pg (28.0-34.0); Mean Corpuscular Volume 85.6 fL (81-99); Mean Platelet Volume 10.1 fL (7.4-10.4); Monocytes # 1.2 10^3/uL (0.2-0.9); Monocytes % 7.1 %; Neutrophils # 10.48 10^3/uL (1.8-7.7); Neutrophils % 63.8 %; Nucleated Red Blood Cells % 0 %; Platelet Count 513 10^3/cmm (130-400); Red Blood Count 5.27 10^6/uL (4.1-5.3); Red Cell Distribution Width 14.2 % (12.1-15.1); White Blood Count 16.4 10^3/uL (4.0-10.0)
--- NOTE | 2020-07-03 14:04 | W.ED.CHESTPA ---
HPI - Chest Pain General: Chief Complaint: Chest Pain Stated Complaint: CP/ SOB/ NAUSEA Time Seen by Provider: 07/03/20 13:16 History of Present Illness: HPI narrative: This patient is a 55-year-old female who presents today with chest pain. She said it started this morning and has been going on constantly. She took 3 nitro at home and EMS has given her 2 nitro as well as 6 of morphine. On my assessment she is crying and holding her chest. She is having difficulty giving me much detail about her history due to her distress. She does tell me that she has had pain like this with prior heart attacks. She says that her last stents were about a month ago. She is on Brilinta and says she takes it every day although she has not taken it this morning. 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 Onset (ago): hour(s) (A few) Timing of current episode: constant Prior episodes: Yes Onset: during rest Pain location: substernal Pain radiation: right arm and left arm Severity: severe Quality: aching, heaviness and similar to prior [place] Relieving factors: nitroglycerin (Only helped a little) Exacerbating factors: nothing Associated symptoms: Reports diaphoresis, dyspnea and nausea Review of Systems General: Reports: ROS unobtainable due to medical condition (Patient is in too much distress to answer questions) Const: Reports: diaphoresis Resp: Reports: dyspnea GI: Reports: nausea PFS ED PFSH: Medical History Atherosclerotic heart disease of [place] coronary artery with unspecified angina pectoris Chest pain, midsternal Chronic congestive heart failure Chronic left-sided low back pain Chronic obstructive pulmonary disease, unspecified Chronic pain of left knee Congestive heart failure Current every day smoker CVA (cerebral vascular accident) Dyslipidemia Encounter for long-term opiate analgesic use Essential hypertension Fibromyalgia Fibromyalgia, primary Hyperlipidemia, mixed Insomnia Intervertebral disc disorder of lumbar region with myelopathy Low back pain radiating to both legs Lumbosacral spondylosis without myelopathy Opioid contract exists Osteoarthritis of spine at multiple levels Type 2 diabetes mellitus with diabetic autonomic (poly)neuropathy Vitamin D deficiency Surgical History History of arthroscopic surgery of elbow BILATERAL History of coronary angiogram Angiogram April 2020 with 90% circumflex lesion, drug-eluting stent placed by Dr. Jerome S/p bilateral carpal tunnel release S/P hysterectomy S/P knee surgery RIGHT S/P lumbar fusion DR. Shreya ZAYAS IN [place], [place] L4-L5, L5-S1 Status post lumbar laminectomy Family History Other CAD (coronary artery disease) Cancer Diabetes Social History Smoking and tobacco status: current every day smoker cigarettes Packs smoked per day: 1 [ Other cigarette details: PER PATIENT REPORT ] Second hand smoke exposure: Yes Smoking risk assessment/counseling performed?: Yes Alcohol intake: former Desire information about alcohol rehabilitation?: No Counseling given: No Desire information about substance/drug rehabilitation?: No Counseling given: No Caregiver/support person: No Lives independently: Yes Household members: family Housing: Manufactured/Mobile home Marital status: service: No Current occupational status: unemployed Pets and animals: Yes History of recent travel: No Current gender identity: Female Physical Exam Const: COMMON NORMALS: patient oriented x3, no limitations and alert GENERAL APPEARANCE: cooperative and comfortable HENMT: HEAD & SCALP: normal to inspection FACE & SINUS: normal facial exam Eye: GENERAL EYE: appearance normal, both eyes and all related structures Neck/C-Spine: COMMON NORMALS: supple, no meningeal signs and no JVD Chest: COMMONS NORMALS: normal inspection of the chest Resp: COMMON NORMALS: normal respiratory effort, No use of accessory muscles and clear to auscultation bilaterally AUSCULTATION: clear to auscultation bilaterally Cardio: COMMON NORMALS: no JVD, regular rate, regular rhythm and No murmurs present (Cardio) RATE: regular rate RHYTHM: regular rhythm GI: COMMON NORMALS: Normal to inspection, nondistended, normoactive bowel sounds present, Soft to palpation and non-tender INSPECTION: Yes normal to inspection AUSCULTATION: Yes normoactive bowel sounds PALPATION: Yes Soft to palpation Back/Pelvis: COMMON NORMALS: thoracic and lumbar spine normal to inspection Extremity: COMMON NORMALS: normal to inspection Neuro: COMMON NORMALS: patient oriented x3, moves all extremities, no focal motor deficits and no sensory deficits noted SENSORIUM/ORIENTATION: Yes alert MENINGEAL SIGNS: Yes no meningeal signs Psych: COMMON NORMALS: mental status grossly normal and cooperative ACTIVITY/MOTOR BEHAVIOR: Yes restless MOOD & AFFECT: Yes anxious Skin: COMMON NORMALS: no rashes or lesions noted and turgor normal GENERAL SKIN EXAM: no rashes or lesions noted and turgor normal Course ED course: EKG and initial troponin done. Initial troponin is 16. The patient is writhing and moaning in bed. She is sitting up and dry heaving. I have ordered a heparin bolus and a nitro drip and I will send her over to CT to make sure that she is not having any sort of aortic dissection or anything as her degree of pain is really out of proportion. CT was negative for PE or aortic dissection. Repeat troponin unfortunately was hemolyzed throwing the series off and making the delta uninterpretable. The series may have to be restarted. Her pain is much better after significant interventions including a nitro drip, Dilaudid. She is not pain-free. I also ordered a heparin bolus while waiting for the second troponin however as that is not available a hold the heparin drip for the time being since her pain is better. Her medical history is quite significant for cardiac disease and she has had similar presentations with [place] as the final diagnosis. I plan to admit for further evaluation. Vital Signs: Vital signs: Vital Signs Temperature 97.8 F 07/03/20 19:30 Pulse Rate 84 07/04/20 06:00 Respiratory Rate 19 H 07/04/20 06:00 Blood Pressure 99/75 07/04/20 06:00 Pulse Oximetry 95 07/04/20 06:00 MDM - Chest Pain Medical Records: Attestation: I reviewed the patient's medical records. Medical records narrative: Review of prior medical records reveals that her last stenting was in April. She presented with chest pain radiating to her left arm at that time. She had elevated troponin and a non-STEMI. She did have a stent placed. Lab Data: Labs: Lab Results 07/03/20 07/03/20 07/03/20 Range/Units 13:35 13:35 13:35 WBC 16.4 H (4.0-10.0) 10^3/ uL RBC 5.27 (4.1-5.3) 10^6/u L Hgb 14.8 (11.5-15.3) g/dL Hct 45.1 (37.0-47.0) % MCV 85.6 (81-99) fL MCH 28.1 (28.0-34.0) pg MCHC 32.8 (30.0-36.0) g/dL RDW 14.2 (12.1-15.1) % Plt Count 513 H (130-400) 10^3/c mm MPV 10.1 (7.4-10.4) fL Neut % (Auto) 63.8 % Lymph % (Auto) 24.3 % Dickinson % (Auto) 7.1 % Eos % (Auto) 2.9 % Baso % (Auto) 0.9 % Neut # (Auto) 10.48 H (1.8-7.7) 10^3/u L Lymph # (Auto) 4.0 (0.8-4.8) 10^3/u L Dickinson # (Auto) 1.2 H (0.2-0.9) 10^3/u L Eos # (Auto) 0.5 (0.0-0.8) 10^3/u L Baso # (Auto) 0.1 (0.0-0.1) 10^3/u L Nucleated RBC % (a uto) 0 % Nucleated RBCs # 0.0 /100WBC PT 11.70 L (12.1-14.9) SECO NDS INR 0.84 (0.8-1.2) APTT 26.0 (23.9-36.7) SECO NDS Sodium 133 L (136-145) mmol/L Potassium 4.8 (3.5-5.1) mmol/L Chloride 99 (98-107) mmol/L Carbon Dioxide 20 L (22-29) mmol/L Anion Gap 18.8 (5-19) BUN 7 (6-20) mg/dL Creatinine 0.6 (0.5-0.9) mg/dL GFR Calculation 104.6 (90-130) mL/min Glucose 413 H (65-115) mg/dL Calculated Osmolal ity 291 (285-295) mOsm/k g Calcium 9.1 (8.5-10.5) mg/dL Total Bilirubin 0.2 (0.15-1.2) mg/dL AST 15 (0-32) U/L ALT 23 (0-33) U/L Alkaline Phosphata se 101 (35-105) IU/L Troponin T Baselin e (0-10) ng/L Troponin T 120 Min [place] Troponin T NT-Pro-B Natriuret Pep 41 (0-125) pg/mL Total Protein 7.4 (6.6-8.7) g/dL Albumin 4.0 (3.5-5.2) g/dL Globulin 3.4 (1.3-4.6) g/dL Lipase 36 (13-60) U/L 07/03/20 07/03/20 07/03/20 Range/Units 13:35 15:32 16:25 WBC (4.0-10.0) 10^3/ uL RBC (4.1-5.3) 10^6/u L Hgb (11.5-15.3) g/dL Hct (37.0-47.0) % MCV (81-99) fL MCH (28.0-34.0) pg MCHC (30.0-36.0) g/dL RDW (12.1-15.1) % Plt Count (130-400) 10^3/c mm MPV (7.4-10.4) fL Neut % (Auto) % Lymph % (Auto) % Dickinson % (Auto) % Eos % (Auto) % Baso % (Auto) % Neut # (Auto) (1.8-7.7) 10^3/u L Lymph # (Auto) (0.8-4.8) 10^3/u L Dickinson # (Auto) (0.2-0.9) 10^3/u L Eos # (Auto) (0.0-0.8) 10^3/u L Baso # (Auto) (0.0-0.1) 10^3/u L Nucleated RBC % (a uto) % Nucleated RBCs # /100WBC PT (12.1-14.9) SECO NDS INR (0.8-1.2) APTT (23.9-36.7) SECO NDS Sodium (136-145) mmol/L Potassium (3.5-5.1) mmol/L Chloride (98-107) mmol/L Carbon Dioxide (22-29) mmol/L Anion Gap (5-19) BUN (6-20) mg/dL Creatinine (0.5-0.9) mg/dL GFR Calculation (90-130) mL/min Glucose (65-115) mg/dL Calculated Osmolal ity (285-295) mOsm/k g Calcium (8.5-10.5) mg/dL Total Bilirubin (0.15-1.2) mg/dL AST (0-32) U/L ALT (0-33) U/L Alkaline Phosphata se (35-105) IU/L Troponin T Baselin e 16 H (0-10) ng/L Troponin T 120 Min [place] Cancelled 57.29 H Delta Troponin T Cancelled 41.29 H* NT-Pro-B Natriuret Pep (0-125) pg/mL Total Protein (6.6-8.7) g/dL Albumin (3.5-5.2) g/dL Globulin (1.3-4.6) g/dL Lipase (13-60) U/L Discharge Plan Discharge Patient Disposition: Admitted As Inpatient Admit Provider: Salvador Sterling Clinical Impression: NSTEMI (non-ST elevated myocardial infarction) Condition: Stable Referrals: Genevieve Crespo FNP-C [Primary Care Provider] - Discharge Date/Time: 07/03/20 18:34 Coding Level of Care Code ED 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
[2020-07-03 14:05] LABS: INR 0.84 (0.8-1.2)
[2020-07-03 14:11] LABS: Troponin(5th) Baseline 16 ng/L (0-10)
[2020-07-03 14:21] LABS: Alanine Aminotransferase 23 U/L (0-33); Alkaline Phosphatase 101 IU/L (35-105); Anion Gap 18.8 (5-19); Aspartate Amino Transferase 15 U/L (0-32); Blood Urea Nitrogen 7 mg/dL (6-20); Calcium 9.1 mg/dL (8.5-10.5); Carbon Dioxide 20 mmol/L (22-29); Chloride 99 mmol/L (98-107); Globulin 3.4 g/dL (1.3-4.6); Glomerular Filtration Rate 104.6 mL/min (90-130); Glucose 413 mg/dL (65-115); Lipase 36 U/L (13-60); NT Pro B Type Natriuretic Pept 41 pg/mL (0-125); Osmolality Calculated 291 mOsm/kg (285-295); Potassium 4.8 mmol/L (3.5-5.1); Sodium 133 mmol/L (136-145); Total Bilirubin 0.2 mg/dL (0.15-1.2); Total Protein 7.4 g/dL (6.6-8.7)
--- NOTE | 2020-07-03 14:22 | CT_ITS ---
WS: [id number] CT CHEST ANGIOGRAPHY WITH REFORMATS HISTORY: chest pain TECHNIQUE: Contiguous axial images are obtained through the chest during arterial injection of intrav enous contrast. Images are reconstructed to evaluate the pulmonary arteries. MIP imaging also reviewe d. All CT scans at [facility] use at least one of these dose optimization techniques: aut omated exposure control; mA and/or kV adjustment per patient size (includes targeted exams where dose is matched to clinical indication); or iterative reconstruction. CONTRAST: Omnipaque 350; 95 mL IV. DLP: 509.56 mGy.cm COMPARISON: 04/03/2019 Adequate opacification of the pulmonary arteries. No pulmonary emboli. Normal-sized thoracic aorta. M ediastinal and hilar lymph nodes are mildly enlarged and indeterminate. RIGHT paratracheal lymph node measures 10 mm. Bilateral hilar lymph nodes measure up to 7 mm in short axis diameter. Mild chronic emphysema and interstitial edema. No mass or pneumonia. Benign granuloma at the LEFT zuleyka g base. Normal size heart. Visualized liver is enlarged with low attenuation from hepatic steatosis. Splenic granulomata. Increase in thoracic kyphosis. No osteoblastic or osteolytic disease. CT/CT angio chest PE protcl [id number] IMPRESSION: 1. No pulmonary embolism. 2. Chronic emphysema and mild CHF. 3. Indeterminate but probably reactive mediastinal and hilar lymph nodes.
[2020-07-03] MEDS: LORazepam 2 mg/mL INJ 1 mL 1 MG IVP (14:30)
[2020-07-03] MEDS: HYDROmorphone 1 mg/mL INJ 1 mL IVP (14:31)
--- NOTE | 2020-07-03 14:35 | PC.NURSE ---
VO TO HOLD HEPARIN UNTIL FURTHER ORDERS PER DR. GONZÁLES.
[2020-07-03] MEDS: nitroglycerin drip 50 MG/250 ML PREMIX IV (14:46)
[2020-07-03] MEDS: iohexol 350 mg/mL 100 mL Btl IV (15:00)
--- NOTE | 2020-07-03 15:20 | ECG_ITS ---
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 Measurements Intervals [place] Rate: 92 P: 51 [place]: 203 QRS: 72 QRSD: 89 T: 71 QT: 349 QTc: 432 Interpretive Statements SINUS RHYTHM MODERATE ST DEPRESSION [0.05+ mV ST DEPRESSION] Compared to ECG 07/03/2020 13:26:03 ST (T wave) deviation now present Sinus tachycardia no longer present Myocardial infarct finding no longer present Electronically Signed On 07-03-2020 19:55:50 CDT by Troy Joyce M.D. [id number]
[2020-07-03] MEDS: heparin 5,000 unit/mL INJ 1 mL 4000 UNIT IVP (16:19)
--- NOTE | 2020-07-03 17:03 | PM.HP ---
Providers/Chief Complaint Primary Care Provider: CHARLOTTE Pugh Chief Complaint: CP/ SOB/ NAUSEA History of Present Illness Mayra Ascencio is a 55 year old female who presents to the emergency department with complaints of severe chest discomfort. She reports it is substernal, radiating to both arms, sharp pain and pressure. She reports it is very similar to the discomfort she had in April where she required a coronary stent. She reports it is much better and she only has minor pressure currently, after the nitroglycerin drip was started. She also received anxiolytic of Ativan, and Dilaudid. I am not for sure if she had anything else in route. She denies any recent fever, or cough. She has had no exposure to COVID. She reports she did have an episode of chest discomfort 1 week ago while gardening that lasted for hours, eventually relieved with nitroglycerin at home. She states she is compliant with her medicines but was not compliant this morning as she was at her mother's place and missed her dose of Brilinta. She denies any blood in her stool, black or tarry stool. Some nausea did occur with her chest discomfort. She also comments during the interview that she has had a whitish vaginal discharge, itching, and would like 1 pill of Diflucan if possible. Review of Systems General: Reports: 10 or more systems reviewed and unremarkable except in HPI and below Const: Denies: fever(s) Eyes: Denies: change in vision ENMT: Denies: throat pain Card: Reports: chest pain Resp: Denies: dyspnea GI: Denies: abdominal pain : Denies: flank pain Skin/Breast: Denies: rash Neuro: Denies: headache(s) Psych: Denies: anxiety Endo: Denies: polyuria Xavier/Lymph: Denies: easy bruising All/Imm: Denies: urticaria Medications/Allergies Home Medications Medication Instructions Recorded Confirmed Last Taken Type nitroglycerin 0.4 mg sublingual 0.4 mg SUBLINGUAL Q5M PRN 11/05/19 07/03/20 04/17/20 History tablet pantoprazole 40 mg tablet,delayed 40 mg PO DAILY 11/05/19 07/03/20 04/17/20 History release topiramate 50 mg tablet 50 mg PO BID 11/05/19 07/03/20 04/17/20 History pen needle, diabetic 31 gauge x #1,200 each 03/25/20 07/03/20 Unknown Rx 5/16 isosorbide mononitrate 60 mg 60 mg PO BID 90 Days #180 tab 04/12/20 07/03/20 04/17/20 Rx tablet,extended release 24 hr Brilinta 90 mg PO BID 30 Days #60 tab 04/19/20 07/03/20 Unknown Rx compressor, for nebulizer #1 each 04/23/20 07/03/20 Unknown Rx nebulizer accessories #1 each 04/23/20 07/03/20 Unknown Rx albuterol sulfate 90 mcg/actuation 2 puff INHALATION QID PRN 30 Days 05/21/20 07/03/20 Unknown Rx aerosol inhaler #6.7 gm budesonide-formoterol HFA 160 2 puff INHALATION Q12H #10.2 gm 05/21/20 07/03/20 Unknown Rx mcg-4.5 mcg/actuation aerosol inhaler carvedilol 6.25 mg tablet 6.25 mg PO BID #60 tab 05/21/20 07/03/20 Unknown Rx duloxetine 60 mg capsule,delayed 60 mg PO DAILY 30 Days #30 cap 05/21/20 07/03/20 Unknown Rx release sprinkle furosemide 20 mg tablet 20 mg PO DAILY 30 Days #30 tab 05/21/20 07/03/20 Unknown Rx insulin detemir U-100 100 unit/mL 10 unit SUBCUT DAILY 30 Days #3 ml 05/21/20 07/03/20 07/02/20 Rx (3 mL) subcutaneous pen metformin 500 mg tablet,extended 1,000 mg PO BID 30 Days #120 tab 05/21/20 07/03/20 Unknown Rx release 24 hr potassium chloride 20 mEq 20 meq PO DAILY 30 Days #30 tab 05/21/20 07/03/20 Unknown Rx tablet,extended release(part/cryst) cyclobenzaprine 10 mg tablet 10 mg PO TID PRN 30 Days #90 tab 06/10/20 07/03/20 Unknown Rx pregabalin 150 mg capsule 150 mg PO BID 30 Days #60 cap 06/10/20 07/03/20 Unknown Rx tramadol 50 mg tablet 50 mg PO QID PRN 30 Days #120 tab 06/10/20 07/03/20 Unknown Rx blood sugar diagnostic #200 each 06/11/20 07/03/20 Unknown Rx blood-glucose meter #1 each 06/11/20 07/03/20 Unknown Rx lancets 33 gauge #200 each 06/11/20 07/03/20 Unknown Rx losartan 50 mg tablet 50 mg PO DAILY #30 tab 06/11/20 07/03/20 Unknown Rx aspirin [Aspir-81] 81 mg PO DAILY 06/14/20 07/03/20 Unknown History atorvastatin 40 mg PO DAILY 06/14/20 07/03/20 Unknown History cholecalciferol (vitamin D3) 50,000 unit PO Q7D 06/14/20 07/03/20 Unknown History ondansetron HCl [Zofran] 4 mg PO Q6H PRN #20 tab 06/14/20 07/03/20 Unknown Rx quetiapine [Seroquel] 50 mg PO BEDTIME 06/14/20 07/03/20 Unknown History semaglutide [Ozempic] 1 mg SUBCUT Q7D 06/14/20 07/03/20 Unknown History sucralfate [Carafate] 1 gm PO Q6H 28 Days #112 tab 06/14/20 07/03/20 Unknown Rx Allergies Allergy/AdvReac Type Severity Reaction Status Date / Time adhesive Allergy Unknown Verified 06/09/20 13:28 clindamycin Allergy ADR-Itching Verified 06/09/20 13:28 codeine Allergy Unknown Verified 06/09/20 13:28 fentanyl Allergy ALGY-Swell Verified 06/09/20 13:28 Lip/Tongue/Throat hydrocodone Allergy Unknown Verified 06/09/20 13:28 latex Allergy ALGY-Swell Verified 06/09/20 13:28 Lip/Tongue/Throat midazolam [From Versed] Allergy ADR-Itching Verified 06/09/20 13:28 naproxen [From Naprosyn] Allergy Unknown Verified 06/09/20 13:28 nut - unspecified Allergy ALGY-Anaphy Verified 06/09/20 13:28 laxis oxycodone [From Roxicodone] Allergy ADR-Muscle Verified 06/09/20 13:28 Pain Penicillins Allergy Unknown Verified 06/09/20 13:28 sulfamethoxazole Allergy ADR-Migrain Verified 06/09/20 13:28 [From Bactrim] e trimethoprim [From Bactrim] Allergy ADR-Migrain Verified 06/09/20 13:28 e PFSH Acute PFSH: Medical History (Updated 07/03/20 @ 17:21 by Salvador Sterling MD) Atherosclerotic heart disease of [place] coronary artery with unspecified angina pectoris Chest pain, midsternal Chronic congestive heart failure Chronic left-sided low back pain Chronic obstructive pulmonary disease, unspecified Chronic pain of left knee Congestive heart failure Current every day smoker CVA (cerebral vascular accident) Dyslipidemia Encounter for long-term opiate analgesic use Essential hypertension Fibromyalgia Fibromyalgia, primary Hyperlipidemia, mixed Insomnia Intervertebral disc disorder of lumbar region with myelopathy Low back pain radiating to both legs Lumbosacral spondylosis without myelopathy Opioid contract exists Osteoarthritis of spine at multiple levels Type 2 diabetes mellitus with diabetic autonomic (poly)neuropathy Vitamin D deficiency Surgical History (Updated 07/03/20 @ 17:06 by Salvador Sterling MD) History of arthroscopic surgery of elbow BILATERAL History of coronary angiogram Angiogram April 2020 with 90% circumflex lesion, drug-eluting stent placed by Dr. Jerome S/p bilateral carpal tunnel release S/P hysterectomy S/P knee surgery RIGHT S/P lumbar fusion DR. Shreya ZAYAS IN [place], [place] L4-L5, L5-S1 Status post lumbar laminectomy Family History Other CAD (coronary artery disease) Cancer Diabetes Social History Smoking and tobacco status: current every day smoker cigarettes Packs smoked per day: 1 [ Other cigarette details: PER PATIENT REPORT ] Second hand smoke exposure: Yes Smoking risk assessment/counseling performed?: Yes Alcohol intake: former Desire information about alcohol rehabilitation?: No Counseling given: No Desire information about substance/drug rehabilitation?: No Counseling given: No Caregiver/support person: No Lives independently: Yes Household members: family Housing: Manufactured/Mobile home Marital status: service: No Current occupational status: unemployed Pets and animals: Yes History of recent travel: No Current gender identity: Female Vitals/I&O/Wt Last Vital Signs Temp 97.7 F 07/03/20 13:16 Pulse 90 07/03/20 16:54 Resp 22 H 07/03/20 16:54 BP 107/87 07/03/20 16:54 Pulse Ox 92 07/03/20 16:54 Weight last 48 hrs Weight 104.326 kg Physical Exam Narrative: EXAM NARRATIVE: General exam is no apparent distress, conversive. Reports her pain is at a 4 out of 10. Hoarse voice is noted HEENT: Pupils equally round. Oropharynx clear. Neck is supple no lymphadenopathy or thyromegaly Cardiovascular regular rate and rhythm without murmur, no S3 or S4 Lungs clear no wheezing or crackles Abdomen is soft obese nontender with positive bowel sounds.. No obvious organomegaly deferred Extremities no cyanosis clubbing or edema, cap refill brisk Skin no rash Neuro no focal deficits. Data : 07/03/20 13:35 07/03/20 13:35 Other data: EKG demonstrates normal sinus rhythm, normal axis, rate of 92. Nonspecific ST-T wave flattening is noted mainly in V2 and V3. INR normal Note that anion gap was 18 Troponin initial 16 LFTs normal Lipase 36 CTA of chest demonstrated no pulmonary embolism, chronic emphysema, mild fluid overload, possible reactive lymph nodes A&P Assessment and plan (1) Chest pain: Troponin is now back and there is a significant delta. This likely represents a non-ST elevation myocardial infarction. Full dose anticoagulation Continue patient's beta-nany, Brilinta, statin, aspirin Note that she is also on an ARB which would be appropriate for her non-ST elevation myocardial infarction. Nitroglycerin drip for pain control, morphine for breakthrough pain Cardiology consultation Status: Acute Qualifiers: Chest pain type: unspecified Qualified Code(s): R07.9 - Chest pain, unspecified (2) Elevated troponin: Initial 16, repeat 57. Delta 41. Concerning for non-ST elevation myocardial infarction. Status: Acute (3) Leukocytosis: Note that she has had leukocytosis on almost all of her previous visits. Consider outpatient work-up. Check urinalysis Status: Acute Qualifiers: Leukocytosis type: unspecified Qualified Code(s): D72.829 - Elevated white blood cell count, unspecified Additional A&P Information Coronary artery disease with history of most recent stenting April 2020 to the circumflex Type 2 diabetes. Sliding scale insulin COPD. No evidence of exacerbation currently Chronic pain and chronic neuropathy. She reports she is going to see pain clinic soon. Tobacco dependency History of CVA Hyperlipidemia Hypertension. Continue her home medications. Multiple other medical problems as outlined in past medical history Full code Lovenox will serve for DVT prophylaxis. Regular admission secondary to significant delta troponin and non-ST elevation myocardial infarction. Attestations Medical Necessity Statement*: Will need greater than 2 midnight stay for evaluation and treatment of non-ST elevation myocardial infarction. Coding Level of Care Code Acute [facility] [employer] [facility] for [facility] Janed Diagnoses Chest pain R07.9 Chest pain type: unspecified Elevated troponin R79.89 Leukocytosis D72.829 Leukocytosis type: unspecified
[2020-07-03 17:14] LABS: Troponin 5 2HR 57.29 ng/L (0-10)
[2020-07-03 17:23] LABS: Troponin 5 2HR Delta 41.29 ABS# (0-10)
--- NOTE | 2020-07-03 18:21 | P.CONIM_ITS ---
Providers/Reason For Consult Consulting Physican/Specialty*: Dr. Olmos Reason for Consult*: Chest pain Attending Physician: Salvador Sterling MD Primary Care Provider: CHARLOTTE Pugh History of Present Illness History of Present Illness Mayra Ascencio is a 55 year old female with past medical history of coronary disease s/p HAILEE to mLCx in 04/2020, recent non-ST elevation VT, HTN, DM, hyperlipidemia, chronic smoker presented for evaluation of chest discomfort. She usually follows up with Dr. Jerome and states she is compliant with her medications. Chest pain described as retrosternal with quality ranging from sharp, pressure like to dull. She took 2 nitros that did not help her. She called EMS and presented to the ER. She had 2 more nitros and had to started on NTG SL. She was at her mom's house and has not taken morning dose of Brillinta. She has had 2 similar pains though less intense in last 2 weeks. She was planning to see Dr. Jerome as an outpatient for the same. On arrival her EKG showed sinus rhythm with mild ST depression in lateral leads. Troponin T showed delta change. At the time of evaluation, she is chest pain free. She does state that for past few days she has been having mostly non productive cough. She admits to chills but denies any fever or sick contacts. She denies any contact with COVID + patient. Review of Systems Const: Denies: fever(s), chills, change in appetite, change in weight, fatigue or malaise Eyes: Denies: change in vision or eye discharge ENMT: Denies: throat pain, swelling of lips/tongue, oral sores, bleeding gums, nasal congestion, epistaxis or post nasal drip Card: Reports: chest pain; Denies: palpitations, irregular heart rhythm, edema, lightheadedness, syncope, dyspnea on exertion, orthopnea or leg pain with exertion Resp: Reports: dyspnea, non-productive cough and chest congestion; Denies: productive cough, wheezing or hemoptysis GI: Denies: abdominal pain, nausea, vomiting, hematemesis, heartburn, diarrhea, constipation, change in bowel habits, hematochezia or melena : Denies: difficulty voiding, dysuria, oliguria or hematuria Musc: Denies: back pain or extremity swelling Skin/Breast: Denies: rash Neuro: Denies: numbness in extremities, weakness in extremities, lack of coordination, difficulty walking, dizziness, vertigo or confusion Psych: Denies: anxiety, depression or irritability Endo: Denies: tired all the time, cold intolerance or heat intolerance Xavier/Lymph: Reports: easy bruising and easy bleeding All/Imm: Denies: throat swelling, tongue swelling or acute wheezing Meds/Allergies Home Medications and Allergies Home Medications Medication Instructions Recorded Confirmed Last Taken Type nitroglycerin 0.4 mg sublingual 0.4 mg SUBLINGUAL Q5M PRN 11/05/19 07/03/20 04/17/20 History tablet pantoprazole 40 mg tablet,delayed 40 mg PO DAILY 11/05/19 07/03/20 04/17/20 History release topiramate 50 mg tablet 50 mg PO BID 11/05/19 07/03/20 04/17/20 History pen needle, diabetic 31 gauge x #1,200 each 03/25/20 07/03/20 Unknown Rx 5/16 isosorbide mononitrate 60 mg 60 mg PO BID 90 Days #180 tab 04/12/20 07/03/20 04/17/20 Rx tablet,extended release 24 hr Brilinta 90 mg PO BID 30 Days #60 tab 04/19/20 07/03/20 Unknown Rx compressor, for nebulizer #1 each 04/23/20 07/03/20 Unknown Rx nebulizer accessories #1 each 04/23/20 07/03/20 Unknown Rx albuterol sulfate 90 mcg/actuation 2 puff INHALATION QID PRN 30 Days 05/21/20 07/03/20 Unknown Rx aerosol inhaler #6.7 gm budesonide-formoterol HFA 160 2 puff INHALATION Q12H #10.2 gm 05/21/20 07/03/20 Unknown Rx mcg-4.5 mcg/actuation aerosol inhaler carvedilol 6.25 mg tablet 6.25 mg PO BID #60 tab 05/21/20 07/03/20 Unknown Rx duloxetine 60 mg capsule,delayed 60 mg PO DAILY 30 Days #30 cap 05/21/20 07/03/20 Unknown Rx release sprinkle furosemide 20 mg tablet 20 mg PO DAILY 30 Days #30 tab 05/21/20 07/03/20 Unknown Rx insulin detemir U-100 100 unit/mL 10 unit SUBCUT DAILY 30 Days #3 ml 05/21/20 07/03/20 07/02/20 Rx (3 mL) subcutaneous pen metformin 500 mg tablet,extended 1,000 mg PO BID 30 Days #120 tab 05/21/20 07/03/20 Unknown Rx release 24 hr potassium chloride 20 mEq 20 meq PO DAILY 30 Days #30 tab 05/21/20 07/03/20 Unknown Rx tablet,extended release(part/cryst) cyclobenzaprine 10 mg tablet 10 mg PO TID PRN 30 Days #90 tab 06/10/20 07/03/20 Unknown Rx pregabalin 150 mg capsule 150 mg PO BID 30 Days #60 cap 06/10/20 07/03/20 Unknown Rx tramadol 50 mg tablet 50 mg PO QID PRN 30 Days #120 tab 06/10/20 07/03/20 Unknown Rx blood sugar diagnostic #200 each 06/11/20 07/03/20 Unknown Rx blood-glucose meter #1 each 06/11/20 07/03/20 Unknown Rx lancets 33 gauge #200 each 06/11/20 07/03/20 Unknown Rx losartan 50 mg tablet 50 mg PO DAILY #30 tab 06/11/20 07/03/20 Unknown Rx aspirin [Aspir-81] 81 mg PO DAILY 06/14/20 07/03/20 Unknown History atorvastatin 40 mg PO DAILY 06/14/20 07/03/20 Unknown History cholecalciferol (vitamin D3) 50,000 unit PO Q7D 06/14/20 07/03/20 Unknown History ondansetron HCl [Zofran] 4 mg PO Q6H PRN #20 tab 06/14/20 07/03/20 Unknown Rx quetiapine [Seroquel] 50 mg PO BEDTIME 06/14/20 07/03/20 Unknown History semaglutide [Ozempic] 1 mg SUBCUT Q7D 06/14/20 07/03/20 Unknown History sucralfate [Carafate] 1 gm PO Q6H 28 Days #112 tab 06/14/20 07/03/20 Unknown Rx Allergies Allergy/AdvReac Type Severity Reaction Status Date / Time adhesive Allergy Unknown Verified 06/09/20 13:28 clindamycin Allergy ADR-Itching Verified 06/09/20 13:28 codeine Allergy Unknown Verified 06/09/20 13:28 fentanyl Allergy ALGY-Swell Verified 06/09/20 13:28 Lip/Tongue/Throat hydrocodone Allergy Unknown Verified 06/09/20 13:28 latex Allergy ALGY-Swell Verified 06/09/20 13:28 Lip/Tongue/Throat midazolam [From Versed] Allergy ADR-Itching Verified 06/09/20 13:28 naproxen [From Naprosyn] Allergy Unknown Verified 06/09/20 13:28 nut - unspecified Allergy ALGY-Anaphy Verified 06/09/20 13:28 laxis oxycodone [From Roxicodone] Allergy ADR-Muscle Verified 06/09/20 13:28 Pain Penicillins Allergy Unknown Verified 06/09/20 13:28 sulfamethoxazole Allergy ADR-Migrain Verified 06/09/20 13:28 [From Bactrim] e trimethoprim [From Bactrim] Allergy ADR-Migrain Verified 06/09/20 13:28 e Current Medications Current Medications Generic Name Dose Route Start Last Admin Trade Name Freq PRN Reason Stop Dose Admin Nitroglycerin/Dextrose 50 mg in 250 mls @ 0 mls/hr 07/03/20 14:15 07/03/20 14:46 Nitroglycerin Drip IV 5 mcg/min .Q0M YUSUF 1.5 mls/hr Administration Protocol Per Protocol PFSH Acute PFSH: Medical History Atherosclerotic heart disease of [place] coronary artery with unspecified angina pectoris Chest pain, midsternal Chronic congestive heart failure Chronic left-sided low back pain Chronic obstructive pulmonary disease, unspecified Chronic pain of left knee Congestive heart failure Current every day smoker CVA (cerebral vascular accident) Dyslipidemia Encounter for long-term opiate analgesic use Essential hypertension Fibromyalgia Fibromyalgia, primary Hyperlipidemia, mixed Insomnia Intervertebral disc disorder of lumbar region with myelopathy Low back pain radiating to both legs Lumbosacral spondylosis without myelopathy Opioid contract exists Osteoarthritis of spine at multiple levels Type 2 diabetes mellitus with diabetic autonomic (poly)neuropathy Vitamin D deficiency Surgical History History of arthroscopic surgery of elbow BILATERAL History of coronary angiogram Angiogram April 2020 with 90% circumflex lesion, drug-eluting stent placed by Dr. Jerome S/p bilateral carpal tunnel release S/P hysterectomy S/P knee surgery RIGHT S/P lumbar fusion DR. Shreya ZAYAS IN [place], [place] L4-L5, L5-S1 Status post lumbar laminectomy Family History Other CAD (coronary artery disease) Cancer Diabetes Social History Smoking and tobacco status: current every day smoker cigarettes Packs smoked per day: 1 [ Other cigarette details: PER PATIENT REPORT ] Second hand smoke exposure: Yes Smoking risk assessment/counseling performed?: Yes Alcohol intake: former Desire information about alcohol rehabilitation?: No Counseling given: No Desire information about substance/drug rehabilitation?: No Counseling given: No Caregiver/support person: No Lives independently: Yes Household members: family Housing: Manufactured/Mobile home Marital status: service: No Current occupational status: unemployed Pets and animals: Yes History of recent travel: No Current gender identity: Female Vitals/I&O/Wt Last Vital Signs Temp 98.4 F 07/03/20 18:07 Pulse 94 07/03/20 18:07 Resp 22 H 07/03/20 18:07 BP 142/92 07/03/20 18:07 Pulse Ox 95 07/03/20 18:07 Weight last 48 hrs Weight 230 lb Physical Exam Const: COMMON NORMALS: no acute distress, patient oriented x3 and alert GENERAL APPEARANCE: cooperative, comfortable, well kempt and well hydrated HENMT: COMMON NORMALS: normocephalic, atraumatic, hearing grossly normal b ilaterally and external ears normal HEAD & SCALP: normocephalic and atraumatic EXTERNAL EAR: Yes external ears normal Eye: COMMON NORMALS: Equal, round and reactive pupils present, EOMs intact bilaterally, conjunctivae normal and no scleral icterus GENERAL EYE: appearance normal, both eyes and all related structures ALIGNMENT: Yes alignment normal PERIORBITAL: periorbital findings normal EYELID: eyelids normal CONJUNCTIVA: Yes conjunctivae normal SCLERA: sclerae normal PUPIL: Yes Equal, round and reactive pupils present Neck/C-Spine: COMMON NORMALS: no lymphadenopathy, supple, no JVD and Thyroid normal GENERAL: Yes normal visual inspection, Yes trachea midline and No Mass present (neck) THYROID: Thyroid normal CAROTIDS: Yes normal carotid upstroke Chest: COMMONS NORMALS: normal inspection of the chest and normal palpation of entire chest wall CHEST: Yes Symmetrical chest wall rise, No mass and No tenderness Resp: COMMON NORMALS: clear to auscultation bilaterally EFFORT & INSPECTION: Yes able to speak in complete sentences, No tachypneic and No respiratory distress AUSCULTATION: clear to auscultation bilaterally, no crackles, no rales, no rhonchi, no wheezes and vesicular breath sounds Cardio: COMMON NORMALS: no JVD, regular rate, regular rhythm, S1 normal heart sound present, S2 normal heart sound present and Peripheral pulses 2+ throughout PALPATION: normal PMI RATE: regular rate RHYTHM: regular rhythm HEART SOUNDS: S1 normal heart sound present, S2 normal heart sound present, no gallops and no murmurs BRUITS: no carotid bruits PERIPHERAL PULSES: Peripheral pulses 2+ throughout, radial pulses present, femoral pulses present, posterior tibial pulses present and dorsalis pedis present GI: COMMON NORMALS: Soft to palpation AUSCULTATION: Yes normoactive bowel sounds PALPATION: Yes Soft to palpation, No Tenderness to palpation present (GI) and No Guarding due to palpation present (GI) Extremity: GENERAL: No calf tenderness, No cyanosis, Yes edema and No pallor Neuro: COMMON NORMALS: patient oriented x3, CN's II-XII intact bilaterally, no focal motor deficits and gait normal SENSORIUM/ORIENTATION: Yes alert Psych: COMMON NORMALS: Normal thought process present and speech normal APPEARANCE: Yes well kempt SPEECH: Yes normal speech MOOD & AFFECT: Yes euthymic mood THOUGHT PROCESS: Normal thought process present THOUGHT CONTENT: Yes Normal thought content present Data Imaging^: Other Imaging: Radiologist's impression: Chest CTA IMPRESSION: 1. No pulmonary embolism. 2. Chronic emphysema and mild CHF. 3. Indeterminate but probably reactive mediastinal and hilar lymph nodes. Coronary angiogram (04/18/2020) Diagnostic Cath Status: Elective Diagnostic Findings LM has 0% stenosis. LAD has 0% stenosis. RCA has 0% stenosis. mCIRC: Severe 90% stenosis, USAMA: 3 flow. Coronary angiography shows right dominance. PCI Status: Urgent PCI Indication: New Onset Angina <= 2 months Interventional Findings mCIRC: 90% stenosis treated with MDT R GERARDO 3.0X8 HAILEE. 0% residual stenosis, USAMA: 3 flow. Successful PCI to mid LCx. Lesion was treated with MDT R GERARDO 3.0X8 mm deployed at high FERNANDEZ of 16 mm to ensure proper approximation Jailing of the OM-1 was noted but there was no compromised of marginal ostium however we tried to go across it due to double stent layer, we were not able to cross it since there was no compromised of the obtuse marginal ostium we decided to leave as it is. Excellent angiographic result with USAMA-3 flow was achieved in both circumflex and obtuse marginal. . Conclusions mCIRC was treated with Drug Eluting Stent. 1. Normal left main2. LAD has luminal irregularities without significant stenosis3. LCx has mid severe 90% in-stent restenosis, it is the culprit vessel4. RCA has proximal stent without in-stent restenosis. EKG showed sinus rhythm with ST depression noted in lead I, aVL. A&P Assessment and plan (1) NSTEMI (non-ST elevated myocardial infarction): Typical chest pain with mild ST depression in lateral leads, Troponin T 16 that increased to 57. -continue ASA, Brillinta, statin and beta nany and lovenox. -Plan for coronary angiogram tomorrow with Dr. Jerome. Status: Acute (2) Atherosclerotic heart disease of [place] coronary artery with unspecified angina pectoris: Status: Acute Qualifiers: [place] vs. transplanted heart: [place] heart Qualified Code(s): I25.119 - Atherosclerotic heart disease of [place] coronary artery with unspecified angina pectoris (3) Dyslipidemia: Status: Acute (4) Essential hypertension: Status: Chronic (5) Diabetes type 2, uncontrolled: Status: Acute Additional A&P Information Tobacco abuse History of CVA COPD Chronic pain and chronic neuropathy. Thank you for allowing me to participate in patient's care. Please fee free to call with questions or concerns Consult Attestations Medical Necessity Statement: Needs hospital stay for NSTEMI Coding Level of Care Code Acute Drug Enforcement Administration Agent for [facility] Fwd Diagnoses NSTEMI (non-ST elevated myocardial infarction) I21.4 Atherosclerotic heart disease of [place] coronary artery with unspecified angina pectoris I25.119 [place] vs. transplanted heart: [place] heart Dyslipidemia E78.5 Essential hypertension I10 Diabetes type 2, uncontrolled E11.65
[2020-07-03] MEDS: enoxaparin 100 mg/mL Syringe SUBCUT (19:16)
[2020-07-03] MEDS: morphine 4 mg/mL SDV 1 mL 2 MG IVP ×3 (19:16→23:52)
[2020-07-03] MEDS: sucralfate 1 gm Tablet PO ×2 (19:17→23:35)
[2020-07-03] MEDS: carvedilol 6.25 mg Tablet PO (19:17)
[2020-07-03] MEDS: ticagrelor 90 mg Tablet PO (19:17)
[2020-07-03] MEDS: pregabalin 150 mg Capsule PO (19:17)
[2020-07-03] MEDS: fluconazole 100 mg Tablet 150 MG PO (19:17)
--- NOTE | 2020-07-03 19:20 | ECG_ITS ---
[facility] Test Date: 2020-07-03 Pat Name: Mayra Ascencio Department: Room: ICU07 Gender: Female Sticker On: : 1965 Requested By: Saba Falcon Order Number: [id number] Ashlee MD: Marlee Olmos M.D. Measurements Intervals [place] Rate: 92 P: 25 VT: 201 QRS: 30 QRSD: 98 T: 50 QT: 355 QTc: 441 Interpretive Statements SINUS RHYTHM Compared to ECG 07/03/2020 15:11:04 ST (T wave) deviation no longer present Electronically Signed On 07-05-2020 9:10:34 CDT by Marlee Olmos M.D. [id number]
[2020-07-03 20:14] LABS: SARS Covid-2 Antigen Negative (Negative)
[2020-07-03] MEDS: quetiapine 25 mg Tablet 50 MG PO (20:27)
[2020-07-03 20:57] LABS: Troponin 5 6HR 125.1 ng/L (0-10); Troponin 5 6HR Delta 109.1 ng/L (0-12)
[2020-07-03 21:37] LABS: Bacteria Urine TRACE /hpf; Bilirubin Urine Neg (Negative); Blood Urine 2+ (Negative); Glucose Urine UA 4+ (Normal); Ketones Urine Negative (Negative); Leukocyte Esterase Urine Negative (Negative); Nitrate Urine Negative (Negative); Protein Urine Neg (Negative); RBC Urine 0-4 /hpf (0-2); Specific Gravity, Urine 1.015 (1.005-1.030); Urine Appearance Clear (CLEAR); Urine Color Yellow (Yellow); Urobilinogen Urine Norm (Negative); WBC Urine 0-4 /hpf (0-5); pH Urine 5 (5-7)
[2020-07-03 21:44] LABS: Glucose Point of Care 321 mg/dL (70-110)
[2020-07-03 21:44] LABS: Glucose Point of Care 310 mg/dL (70-110)
[2020-07-03] MEDS: HYDROmorphone 1 mg/mL INJ 1 mL 2 MG IVP (21:55)
[2020-07-03] MEDS: ondansetron 2 mg/ML SDV 2 mL 4 MG IVP (22:17)
[2020-07-04] VITALS (50 sets, daily range): BP systolic 76–155; BP diastolic 46–110; PULSE 79–97; RESP 7–26; TEMP 36.7–36.9; O2SAT 85–97; BMI 37.3
[2020-07-04] MEDS: cyclobenzaprine 10 mg Tablet PO (01:24)
[2020-07-04] MEDS: HYDROmorphone 1 mg/mL INJ 1 mL 2 MG IVP ×3 (02:56→20:03)
[2020-07-04 04:02] LABS: Anion Gap 15.5 (5-19); Blood Urea Nitrogen 9 mg/dL (6-20); Calcium 8.7 mg/dL (8.5-10.5); Carbon Dioxide 21 mmol/L (22-29); Chloride 100 mmol/L (98-107); Glomerular Filtration Rate 104.6 mL/min (90-130); Glucose 337 mg/dL (65-115); Osmolality Calculated 286 mOsm/kg (285-295); Potassium 4.5 mmol/L (3.5-5.1); Sodium 132 mmol/L (136-145)
[2020-07-04] MEDS: morphine 4 mg/mL SDV 1 mL 2 MG IVP (04:23)
[2020-07-04] MEDS: enoxaparin 100 mg/mL Syringe SUBCUT ×2 (04:23→17:20)
[2020-07-04] MEDS: sucralfate 1 gm Tablet PO ×3 (05:42→17:21)
--- NOTE | 2020-07-04 06:00 | PC.NURSE ---
Addendum entered by Latosha Carlson RN 07/04/20 06:08: Pt BP fluctuated throughout the night. Nitro drip paused in an effort to increase BP. BP cuff replaced and pt educated multiple times on the importance of relaxing and holding her arm still while cuff was inflating. Original Note: Shift Summary Pt did not sleep much throughout the night despite being given pain medicine often. Pain seemed to be pt's biggest issue through the night. Pt stated she is seen at the pain clinic and has been going there for several years. Pt c/o pain in her back most of the night. Pain in back ranged from pt sleeping to a 9/10. Pt had one episode of severe/10 out of 10 chest pain. Nitro drip was titrated up. Pt became nauseated, so zofran was given at that time. Pt consistently rated CP as 5/10 and back pain usually 8/10. Pt asked for pain medicine every time nurse made rounds. Pt was given IVP morphine and dilaudid alternating. Pt stated keeping these medicines alternating were keeping the pain at bay . Pt mother and POA called and spoke with nurse twice. Pt to be taken to [facility] later today. Nurse delayed having consent signed until was able to answer any questions and fully explain the procedure to the pt.
[2020-07-04 07:58] LABS: Glucose Point of Care 273 mg/dL (70-110)
[2020-07-04] MEDS: pantoprazole DR 40 mg Tablet PO (08:44)
[2020-07-04] MEDS: pregabalin 150 mg Capsule PO ×2 (08:44→17:21)
[2020-07-04] MEDS: topiramate 25 mg Tablet 50 MG PO ×2 (08:45→17:21)
[2020-07-04] MEDS: duloxetine 60 mg Capsule PO (08:45)
[2020-07-04] MEDS: atorvastatin 40 mg Tablet PO (08:45)
[2020-07-04] MEDS: ticagrelor 90 mg Tablet PO ×2 (08:46→17:21)
[2020-07-04] MEDS: aspirin 81 mg EC Tablet PO (08:46)
--- NOTE | 2020-07-04 08:55 | PC.NURSE ---
Addendum entered by Martine Toro RN 07/04/20 09:34: Also spoke about blood sugar of 278mg/dl. Short acting insulin adinster, 8 units, as she has been running so high. Dr saunders'heidi. Levimir to be held until after procedure, Lunch time insulin can be held then too. Original Note: Dr Olmos called to check on pt. Spoke with her about pt now hypotensive, 85/61 MAP 69 [place], Coreg and Furosemide held. Dr Saunders. While speaking to , B/P went to 77/65. Orders to go ahead and start the pre cath IV fluids at 100ml/hr. Orders for pre-procedure Benadryl received.
[2020-07-04] MEDS: sodium chloride 0.9% 1,000 ML 100 ML IV ×2 (09:11→20:17)
--- NOTE | 2020-07-04 09:23 | PM.PN ---
Subjective Subjective: Interval history: Mayra reports no chest discomfort this morning. Cardiology has seen her and I believe an angiogram will be done this morning. Medications: Reviewed: Yes Vitals/I&O/Wt Last Vital Signs Temp 98.3 F 07/04/20 08:00 Pulse 81 07/04/20 08:00 Resp 14 07/04/20 08:00 BP 79/64 07/04/20 08:00 Pulse Ox 93 07/04/20 08:00 07/03/20 07/04/20 07/04/20 22:59 06:59 14:59 Intake Total 13.845 / 13.845 47.425 / 61.270 Balance 13.845 / 13.845 47.425 / 61.270 Weight last 48 hrs Weight 104.961 kg Weight 104.78 kg Weight 104.326 kg Physical Exam Narrative: EXAM NARRATIVE: General exam no apparent distress Cardiovascular regular rate and rhythm without murmur Lungs clear, diminished breath sounds bilaterally Abdomen is soft with positive bowel sounds Extremities no cyanosis clubbing or edema Data : 07/03/20 13:35 07/04/20 03:10 A&P Assessment and plan (1) Chest pain: Patient presented with non-ST elevation myocardial infarction Angiogram planned for today Continue full dose anticoagulation, beta-nany, Brilinta, statin, aspirin Nitroglycerin drip has been turned off, and patient is currently chest pain-free Appreciate cardiology consultation Continue ARB Status: Acute Qualifiers: Chest pain type: unspecified Qualified Code(s): R07.9 - Chest pain, unspecified (2) Elevated troponin: Consistent with non-ST elevation myocardial infarction Status: Acute (3) Leukocytosis: Note that she has had leukocytosis on almost all of her previous visits. Consider outpatient work-up. Is negative for infection. Cardiology also had a rapid COVID done which was negative. Status: Acute Qualifiers: Leukocytosis type: unspecified Qualified Code(s): D72.829 - Elevated white blood cell count, unspecified Additional A&P Information Coronary artery disease with history of most recent stenting April 2020 to the circumflex Type 2 diabetes. Sliding scale insulin COPD. No evidence of exacerbation currently Chronic pain and chronic neuropathy. She reports she is going to see pain clinic soon. Tobacco dependency. Counseled 3 to 5 minutes History of CVA. Already on aspirin, statin Hyperlipidemia, continue statin Hypertension. Continue her home medications. Multiple other medical problems as outlined in past medical history Full code Lovenox will serve for DVT prophylaxis. Attestations Medical Necessity Statement*: Needs continued hospitalization for definitive evaluation and care of acute non-ST elevation myocardial infarction. Coding Level of Care Code Acute Rock Crushing Machine Operator for [facility] Fwd Diagnoses Chest pain R07.9 Chest pain type: unspecified Elevated troponin R79.89 Leukocytosis D72.829 Leukocytosis type: unspecified
[2020-07-04 10:25] LABS: Basophils # 0.1 10^3/uL (0.0-0.1); Basophils % 0.8 %; Eosinophils # 0.5 10^3/uL (0.0-0.8); Eosinophils % 4.1 %; Hematocrit 39.8 % (37.0-47.0); Hemoglobin 12.7 g/dL (11.5-15.3); Lymphocytes # 4.1 10^3/uL (0.8-4.8); Mean Corpuscular HGB Conc 31.9 g/dL (30.0-36.0); Mean Corpuscular Hemoglobin 27.9 pg (28.0-34.0); Mean Corpuscular Volume 87.3 fL (81-99); Mean Platelet Volume 10.2 fL (7.4-10.4); Monocytes # 0.7 10^3/uL (0.2-0.9); Neutrophils # 6.28 10^3/uL (1.8-7.7); Neutrophils % 53.5 %; Nucleated Red Blood Cells % 0 %; Platelet Count 402 10^3/cmm (130-400); Red Blood Count 4.56 10^6/uL (4.1-5.3); Red Cell Distribution Width 14.2 % (12.1-15.1); White Blood Count 11.7 10^3/uL (4.0-10.0)
--- NOTE | 2020-07-04 10:56 | PC.NURSE ---
Allowed pt to speak to her mother, Julia Baum, on the portable phone this morning. Pt talked on the phone on and off for an hour, at one point the patient was getting very loud. Phone returned. Then mother Julia Baum calls ands asks if pt is getting discharge today as that is what the granson said. She stated he was simple. Discussed with her the garcia of care, including cardiac cath today. Immediately after that phone call the grandson ( pt's son Adrian) called and asked the same thing, informed him pt was having a cardiac cath today. No discharge planned today.
[2020-07-04] MEDS: diphenhydrAMINE 50 mg Capsule PO (11:40)
[2020-07-04 11:47] LABS: Glucose Point of Care 252 mg/dL (70-110)
--- NOTE | 2020-07-04 11:56 | PC.NURSE ---
Pt prepped for labor standards director. Pt bathed and right arm and bilat groin hep cleansed. Bilat groin shaved. Benadryl admin. Pt to restroom and voided.
--- NOTE | 2020-07-04 12:03 | PC.NURSE ---
Pt to manufacturing lab technician.
--- NOTE | 2020-07-04 13:00 | PC.NURSE ---
Pt back to ICU from agriculture laborer. RIght groin sheath intact. no hematoma or bleeding noted.
--- NOTE | 2020-07-04 13:46 | PM.PN ---
Subjective Subjective: Interval history: Patient underwent coronary angiogram today which showed patent previously placed mid circumflex stent, distal to stent there is a 50 to 60% stenosis not thought to be significant. LAD has luminal irregularities without significant stenosis, diagonal branch has luminal irregularity without significant stenosis. RCA is nondominant vessel without significant stenosis. Medications: Reviewed: Yes Vitals/I&O/Wt Last Vital Signs Temp 98.5 F 07/04/20 12:00 Pulse 87 07/04/20 13:16 Resp 24 H 07/04/20 13:16 BP 124/71 07/04/20 13:10 Pulse Ox 97 07/04/20 13:16 07/03/20 07/04/20 07/04/20 22:59 06:59 14:59 Intake Total 13.845 / 13.845 47.425 / 61.270 Output Total 550 / 550 Balance 13.845 / 13.845 47.425 / 61.270 -550 / -550 Weight last 48 hrs Weight 231 lb 6.4 oz Weight 231 lb Weight 230 lb Physical Exam Narrative: EXAM NARRATIVE: GENERAL: Patient is alert, awake and oriented x3. NECK: No jugular vein distension. HEENT: No cyanosis. No icterus. No pallor. HEART: Regular S1 and S2. No murmur, rub or gallop. LUNGS: Clear to auscultate bilaterally. ABDOMEN: Soft, nontender and nondistended. Positive bowel sounds. No guarding, rebound or tenderness. CENTRAL NERVOUS SYSTEM: Grossly nonfocal. EXTREMITIES: Lower extremities without edema bilaterally. Data : 07/04/20 10:05 07/04/20 03:10 A&P Assessment and plan (1) NSTEMI (non-ST elevated myocardial infarction): Patient underwent coronary angiogram not suggestive of any significant obstructive disease. She has patent prior mid circumflex stent with distal circumflex has 50 to 60% nonsignificant stenosis. Rest of all vessel has luminal irregularities without significant stenosis. Most likely cardiac marker leads could be from small vessel disease are small vessel plaque rupture. Continue Brilinta aspirin statin beta-nany. Add isosorbide mononitrate to the regimen. After completion of bedrest most likely she can be discharged home. Status: Acute (2) Atherosclerotic heart disease of [place] coronary artery with unspecified angina pectoris: As above. Continue to optimize medicine Status: Acute Qualifiers: [place] vs. transplanted heart: [place] heart Qualified Code(s): I25.119 - Atherosclerotic heart disease of [place] coronary artery with unspecified angina pectoris (3) Dyslipidemia: Patient is on statin will continue Status: Acute (4) Essential hypertension: Well-controlled continue meds Status: Chronic (5) Diabetes type 2, uncontrolled: As per medicine Status: Acute Additional A&P Information Tobacco abuse History of CVA COPD Chronic pain and chronic neuropathy. Thank you for allowing me to participate in patient's care. 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 transplanted heart: [place] heart Dyslipidemia E78.5 Essential hypertension I10 Diabetes type 2, uncontrolled E11.65
[2020-07-04] MEDS: fentaNYL 50 mcg/mL INJ 2mL 25 MCG IVP (14:35)
--- NOTE | 2020-07-04 16:40 | PC.NURSE ---
Report faxed to [facility].
--- NOTE | 2020-07-04 17:11 | PC.NURSE ---
Call [facility] to give report, nurse will call back.
[2020-07-04 17:18] LABS: Glucose Point of Care 329 mg/dL (70-110)
[2020-07-04] MEDS: carvedilol 6.25 mg Tablet PO (17:21)
--- NOTE | 2020-07-04 17:30 | PC.NURSE ---
Report given to IRAM Moncada. Pt to lay flat for another 2 hours. Meal ordered, please watch for it. Pt has received evening meds.
--- NOTE | 2020-07-04 17:40 | PC.NURSE ---
Pt transferred to CSU via bed. Belongings with pt.
--- NOTE | 2020-07-04 18:11 | USCV_ITS ---
Mayra Ascencio Age: 55 Gender: F : 1965 Exam Date: 07/04/2020 06:06 Ordering Phys: Salvador Sterling MD Technologist: Radhika Joe Exam Location: [facility] – [place] Indication: CHEST PAIN BP: 85 / 72 HR: 81 Rhythm: Sinus Technical Quality: Adequate MEASUREMENTS (Male / Female) Normal Values 2D ECHO LV Diastolic Diameter PLAX 4.2 cm 4.2 - 5.9 / 3.9 - 5.3 cm LV Systolic Diameter PLAX 2.8 cm LV Chamber Size 2.7 cm IVS Diastolic Thickness 1.3 cm 0.6 - 1.0 / 0.6 - 0.9 cm IVS Systolic Thickness 1.8 cm LVPW Diastolic Thickness 1.5 cm 0.6 - 1.0 / 0.6 - 0.9 cm LVPW Systolic Thickness 2.3 cm RV Chamber Size 3.4 cm LVOT Diameter 2.0 cm LV Ejection Fraction 2D Teich 64.3 % LV Ejection Fraction MOD 2C 76.1 % LV Ejection Fraction 2C AL 76.5 % LA Diameter 4.4 cm LA Width 3.3 cm LA Height 4.4 cm RA Width 3.3 cm RA Height 4.5 cm Aorta at Sinotubular Diameter 2.5 cm M-MODE LV Diastolic Diameter MM 4.3 cm 4.2 - 5.9 / 3.9 - 5.3 cm LV Systolic Diameter MM 2.2 cm LV Ejection Fraction MM Teich 80.0 % IVS Diastolic Thickness MM 1.2 cm 0.6 - 1.0 / 0.6 - 0.9 cm IVS Systolic Thickness MM 1.9 cm LVPW Diastolic Thickness MM 1.5 cm 0.6 - 1.0 / 0.6 - 0.9 cm LVPW Systolic Thickness MM 2.0 cm Aortic Annulus Diameter 2.7 cm LA Ao Ratio MM 1.6 MV E Point Septal Separation 0.3 cm DOPPLER AV Peak Velocity 167.0 cm/s LVOT Peak Velocity 93.0 cm/s AV Area Cont Eq vti 2.2 cm squared AV Area Cont Eq pk 1.8 cm squared MV Area PHT 3.0 cm squared Mitral E to A Ratio 1.4 MV E' Velocity 12.0 cm/s Mitral E to MV E' Ratio 7.4 Mitral E to LV E' Lateral Ratio 6.4 Mitral E to LV E' Septal Ratio 8.8 TR Peak Velocity 259.0 cm/s TR Peak Gradient 26.8 mmHg TV Peak E Velocity 75.0 cm/s Right Atrial Pressure 3.0 mmHg Pulmonary Artery Systolic Pressu 29.8 mmHg PV Peak Velocity 92.0 cm/s RV Acceleration Time 0.1 s RV Ejection Time 0.4 s RV AcT/ET 0.4 FINDINGS Left Ventricle Normal left ventricular size, systolic function and wall thickness, with no regional wall motion abnormalities. LVEF is 60 to 65%. Normal left ventricular wall thickness. Normal diastolic filling pattern. Right Ventricle The right ventricle is normal in size and function. Right Atrium The right atrium is normal in size. Left Atrium The left atrium is normal in size. Mitral Valve Structurally normal mitral valve without significant stenosis or prolapse. There is no mitral regurgitation. Aortic Valve Structurally normal aortic valve without significant sclerosis or stenosis. There is no aortic regurgitation. Tricuspid Valve Structurally normal tricuspid valve without significant stenosis or regurgitation. Insufficient TR jet to calculate RVSP. Pulmonic Valve Structurally normal pulmonic valve without significant stenosis. There is no pulmonic regurgitation. Pericardium Normal pericardium without effusion. Aorta Normal ascending aorta dimension. CONCLUSIONS Normal LV systolic function with EF of 60 to 65%. Normal diastolic function. Compared to previous echo from 11/13/2018, no significant changes are noted. Brad Lyles MD (Electronically Signed) Final Date: 04 July 2020 08:57 S
--- NOTE | 2020-07-04 19:34 | PC.NURSE ---
received into room 101 from icu via bed.report received.pt is s/p cardiac angiogram.sr on monior.right femoral cath site drsg is dry and intact.no hematoma noted.right leg is warm to touch and with brisk capillary refill.palpable dp pulse noted.pt is alert and awake.denies pain at present.oriented to room environment.instructed in activity restrictions s/p femoral artery procedure..and instructed to notify staff for any bleeding,pain,numbness...or for any concerns at all.pt verb understanding of instructions.
--- NOTE | 2020-07-04 19:48 | XACV_ITS ---
Exam Room: [facility] Ht: 168 cm Wt: 105 kg BSA: 2.26 m2 Gender: Female : 1965 Any Known Allergies: Penicillins Exam Priority: Routine Procedure(s): Procedure Description: Diagnostic procedure Procedure Description: Coronary Angiography Diagnostic Cath Status: Elective Diagnostic Findings LM has 0% stenosis. LAD has 0% stenosis. RCA has 0% stenosis. dCIRC: Moderate 60% stenosis, USAMA: 3 flow. Coronary angiography shows left dominance. Conclusions There is moderate coronary artery disease with one vessel disease. Reason for angiogram: Non-ST relation CO#1 Left main is normal#2 LAD has luminal irregularity without significant stenosis. Diagonal branches luminal irregularities with ostial 40% stenosis#3 LCx has luminal irregularities with patent prior stent distal to the stent there is 60% stenosis which does not appear to be significant.#4 RCA is small caliber nondominant vessel with luminal irregularities with. Recommendations Continue current medical management and risk factor modification.Guidline directed medical therapy. Diagnostic RX Recommendation: medical therapy and/or counseling Pressures Phase:Rest AO : 141 mmHg / 83 mmHg ( 102 mmHg ) @ 7:30:00 AM 138 mmHg / 68 mmHg ( 95 mmHg ) @ 7:34:00 AM Clinical Evaluation EBL: 5mL-10mL Procedural Details Pre-Procedure Time Out. Identified patient by full name and date of as verbalized by the patient/guarantor. Does the consent match the physician's order: Yes. Accurate & Complete Informed Consent: Yes. Inpatient/Outpatient History & Physical on Chart: Yes. If H&P is completed, is and addenduem needed: Yes; If yes, is the addendum complete: N/A. Visualize and Verify Site with Patient/Guarantor: N/A. Relevant Radiology Images available: Yes. Pre-op teaching completed and patient verbalized understanding. The risks, benefits, and alternatives of sedation and/or procedure were discussed by physician. The patient agrees to continue. Procedure started. [facility] Clinical Fraility Score: 3: Managing Well. 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 Chest Pain Symptom Assessment: Typical Angina Symptoms. Correct patient, site and procedure confirmed by cath team. Current diagnosis: Stable angina. Current Diagnosis : Stable angina. IV Site on Arrival: 18 gauge in the left anticubital. IV Fluids: 0.9% NaCl at KVO. 300 mL infused prior to catheterization laboratory technician. Oxygen started at 2liters/min via nasal canula. right groin was prepped with chloroprep then draped in the usual sterile fashion. right radial was prepped with chloroprep then draped in the usual sterile fashion. Physician notified. Baseline sample Acquired. HR: 84 BPM. Physician arrived. Physician scrubbed in. Immediate Pre-Procedure Time Out. Correct Patient: Yes; Correct Procedure: Yes; Correct Site: Yes; Correct Patient Position: Yes; Correct Supplies: Yes; Dried Flammable Prep: Yes; Blood Products Available: N/A;. Lidocaine 1% infiltrated to the right groin. Unable to obtain radial access. MD attempting to gain access in the Femoral artery. Arterial access obtained with micropuncture set. A 5 central african JL4 catheter in over wire. Multiple views taken of left coronary artery. Catheter removed over the standard wire. A 5 central african JR4 catheter in over wire. Multiple views taken of right coronary artery. Physician review of cine films. Sheath(s) sutured into position with 2-0 silk and sterile 4x4's and Op-site applied over the site. No oozing or signs and symptoms of hematoma noted. Arterial sheath flushed and connected to tranducer and pressure bag with heparinized saline. Post Procedure: Pulses reassessed and unchanged. PERRLA. Strong, equal hand wharf tender head bilaterally. No VTE prophylaxis required. Medication's Wasted: Heparin = 4000 units. Medication's Wasted: Lidocaine 1% = 10 mL. Total IV fluids: 100 mL. Complications: None. Contrast type used: Visipaque 320 mgI/mL, 500 mL bottle. Post-op diagnosis: Normal CAD. Estimated blood loss: 5mL-10mL. Procedure completed. Vital chart was stopped. A Suture was successful obtaining hemostatsis at the Right Femoral artery insertion site. Patient transferred by bed to 1st floor. Site: Right Femoral artery Sheath Size: 6 Fr Hemostasis Method: Suture Hemostasis Success: Successful Procedure Medications Start: 12:19 PM Stop: 12:19 PM Medication: Versed Amount: 1 mg Route: I.V. Start: 12:19 PM Stop: 12:19 PM Medication: Fentanyl Amount: 50 mcg Route: I.V. Start: 12:31 PM Stop: 12:31 PM Medication: Versed Amount: 1 mg Route: I.V. Start: 12:31 PM Stop: 12:31 PM Medication: Fentanyl Amount: 50 mcg Route: I.V. I, the attending physician, have reviewed and verified all procedure medications. Yes, all medications given per verbal order History/Risk Factors Hypertension: Yes Dyslipidemia: Yes Diabetic Therapy: Insulin Peripheral Arterial Disease (PAD): No Myocardial Infarction (CO): No Obesity: Yes Renal Disease: No Tobacco Use: Current/Recent(w/in 1 year) Prior Interventions PCI: Yes CABG: No Valve Surgery: No Date of PCI: 04/22/2020 Report Signatures Finalized by:Darrell Jerome MD on 07/04/2020 5:25:27 PM
[2020-07-04] MEDS: quetiapine 25 mg Tablet 50 MG PO (20:04)
[2020-07-04 20:41] LABS: Glucose Point of Care 420 mg/dL (70-110)
[2020-07-05] VITALS (9 sets, daily range): BP systolic 91–144; BP diastolic 57–88; PULSE 80–95; RESP 16–31; TEMP 36.7–36.8; O2SAT 91–98
[2020-07-05] MEDS: sucralfate 1 gm Tablet PO ×2 (01:15→06:49)
[2020-07-05] MEDS: enoxaparin 100 mg/mL Syringe SUBCUT (03:16)
[2020-07-05 03:50] LABS: Basophils # 0.1 10^3/uL (0.0-0.1); Basophils % 0.7 %; Eosinophils # 0.5 10^3/uL (0.0-0.8); Eosinophils % 3.9 %; Hematocrit 37.7 % (37.0-47.0); Hemoglobin 12.2 g/dL (11.5-15.3); Lymphocytes # 3.8 10^3/uL (0.8-4.8); Lymphocytes % 32.7 %; Mean Corpuscular HGB Conc 32.4 g/dL (30.0-36.0); Mean Corpuscular Volume 86.7 fL (81-99); Monocytes # 0.8 10^3/uL (0.2-0.9); Monocytes % 7.1 %; Neutrophils # 6.41 10^3/uL (1.8-7.7); Nucleated Red Blood Cells % 0 %; Platelet Count 359 10^3/cmm (130-400); Red Blood Count 4.35 10^6/uL (4.1-5.3); White Blood Count 11.7 10^3/uL (4.0-10.0)
[2020-07-05 04:09] LABS: Anion Gap 11.6 (5-19); Blood Urea Nitrogen 9 mg/dL (6-20); Calcium 8.9 mg/dL (8.5-10.5); Carbon Dioxide 24 mmol/L (22-29); Chloride 105 mmol/L (98-107); Glucose 246 mg/dL (65-115); Osmolality Calculated 289 mOsm/kg (285-295); Potassium 4.6 mmol/L (3.5-5.1); Sodium 136 mmol/L (136-145)
[2020-07-05 06:46] LABS: Glucose Point of Care 278 mg/dL (70-110)
--- NOTE | 2020-07-05 08:02 | PM.DCS ---
Discharge Providers Date of Admission: 07/03/20 17:09 Date of Discharge: July 05, 2020 Attending Provider at Admission: Salvador Sterling MD Attending Provider at Discharge: Salvador Sterling MD Primary Care Provider: CHARLOTTE Pugh Diagnoses at Discharge Discharge Diagnosis (1) NSTEMI (non-ST elevated myocardial infarction): Status: Acute Problem details: Thought to be secondary to plaque rupture. Angiogram July 04 no flow-limiting lesions, or restenosis of previous stent from April 2020 (2) Atherosclerotic heart disease of [place] coronary artery with unspecified angina pectoris: Status: Acute Qualifiers: [place] vs. transplanted heart: [place] heart Qualified Code(s): I25.119 - Atherosclerotic heart disease of [place] coronary artery with unspecified angina pectoris (3) Dyslipidemia: Status: Acute (4) Essential hypertension: Status: Chronic (5) Diabetes type 2, uncontrolled: Status: Acute Reason for Visit Reason for Visit: CP/ SOB/ NAUSEA Hospital Course Hospital Course: Mayra is a 55-year-old white female who presents to the hospital with severe chest pain. Troponin in the emergency department was slightly elevated. CTA demonstrated no pulmonary embolism. White blood cell count was slightly elevated but no evidence of infection. On review of laboratory this appears to have been chronically elevated. She was placed in the ICU on a nitroglycerin drip, and fully anticoagulated. Her beta-nany, statin, Brilinta, aspirin, ARB were all continued. Cardiology was consulted. She underwent angiogram on July 04. This demonstrated no flow-limiting lesions or restenosis of drug-eluting stent placed in April. A variety of stenoses were present but none flow-limiting, the worst of which was left circumflex 60% stenosis distal to the previous stent. Following the procedure she had no chest discomfort, was able to ambulate, and had no complications from the procedure so was discontinued home. It was thought her non-ST elevation myocardial infarction was likely secondary to plaque rupture. She will need to follow-up with her primary care provider regarding her persistent leukocytosis on visits here. This may require referral. Her Imdur was decreased secondary to lower blood pressures following the procedure from twice a day to once a day. Physical Exam Narrative: EXAM NARRATIVE: General exam no apparent distress Cardiovascular regular rate and rhythm without murmur Lungs clear but with diminished breath sounds bilaterally. Occasional expiratory wheeze Abdomen is soft obese nontender Extremities no cyanosis clubbing or edema, right groin without significant hematoma. 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 request for service Routin e Exams 07/04/20 19:48 Completed XR chest 1V calin ble [id number] Stat Exams 07/03/20 13:20 Completed CV echo complete* [id number] Routine Ultrasound 07/04/20 18:11 Completed Pending at discharge Category Date Time Status Basic Metabolic P tariq AM LABS Lab 07/06/20 04:00 Ordered Complete Blood Co unt w/Auto DAILY Lab 07/06/20 10:00 Ordered Labs from last 24 hours 07/05/20 07/05/20 07/05/20 06:12 03:35 03:35 WBC 11.7 H RBC 4.35 Hgb 12.2 Hct 37.7 MCV 86.7 MCH 28.0 MCHC 32.4 RDW 14.0 Plt Count 359 MPV 10.0 Neut % (Auto) 55.0 Lymph % (Auto) 32.7 [place] % (Auto) 7.1 Eos % (Auto) 3.9 Baso % (Auto) 0.7 Neut # (Auto) 6.41 Lymph # (Auto) 3.8 [place] # (Auto) 0.8 Eos # (Auto) 0.5 Baso # (Auto) 0.1 Nucleated RBC % (a uto) 0 Nucleated RBCs # 0.0 Sodium 136 Potassium 4.6 Chloride 105 Carbon Dioxide 24 Anion Gap 11.6 BUN 9 Creatinine 0.8 GFR Calculation 75.0 L Glucose 246 H POC Glucose 278 Calculated Osmolal ity 289 Calcium 8.9 07/04/20 07/04/20 07/04/20 19:53 17:14 11:04 WBC RBC Hgb Hct MCV MCH MCHC RDW Plt Count MPV Neut % (Auto) Lymph % (Auto) [place] % (Auto) Eos % (Auto) Baso % (Auto) Neut # (Auto) Lymph # (Auto) [place] # (Auto) Eos # (Auto) Baso # (Auto) Nucleated RBC % (a uto) Nucleated RBCs # Sodium Potassium Chloride Carbon Dioxide Anion Gap BUN Creatinine GFR Calculation Glucose POC Glucose 420 329 252 Calculated Osmolal ity Calcium 07/04/20 10:05 WBC 11.7 H RBC 4.56 Hgb 12.7 Hct 39.8 MCV 87.3 MCH 27.9 L MCHC 31.9 RDW 14.2 Plt Count 402 H MPV 10.2 Neut % (Auto) 53.5 Lymph % (Auto) 35.0 [place] % (Auto) 6.0 Eos % (Auto) 4.1 Baso % (Auto) 0.8 Neut # (Auto) 6.28 Lymph # (Auto) 4.1 [place] # (Auto) 0.7 Eos # (Auto) 0.5 Baso # (Auto) 0.1 Nucleated RBC % (a uto) 0 Nucleated RBCs # 0.0 Sodium Potassium Chloride Carbon Dioxide Anion Gap BUN Creatinine GFR Calculation Glucose POC Glucose Calculated Osmolal ity Calcium Vitals: Last Vital Signs Temp 98.2 F 07/05/20 07:11 Pulse 95 07/05/20 07:39 Resp 18 07/05/20 07:35 BP 94/60 07/05/20 07:11 Pulse Ox 95 07/05/20 07:35 Discharge Plan Discharge Patient Disposition: Home Condition: Stable Prescriptions: Continued (DME) blood-glucose meter [OneTouch Ultra2 Meter] Kit See Rx Instructions .ROUTE .MEDSUPPLY Qty: 1 RF: 0 (DME) OneTouch Ultra Blue Test Strip Strip See Rx Instructions .ROUTE .MEDSUPPLY Qty: 200 RF: 5 (DME) lancets [OneTouch Delica Plus Lancet] 33 gauge misc See Rx Instructions .ROUTE .MEDSUPPLY Qty: 200 RF: 5 losartan 50 mg tablet 50 mg PO DAILY Qty: 30 RF: 2 topiramate 50 mg tablet 50 mg PO BID RF: 0 nitroglycerin 0.4 mg tablet, sublingual 0.4 mg SUBLINGUAL Q5M PRN (Reason: chest pains) RF: 0 pantoprazole [Protonix] 40 mg tablet,delayed release (DR/EC) 40 mg PO DAILY RF: 0 (DME) compressor, for nebulizer Device See Rx Instructions .ROUTE .MEDSUPPLY Qty: 1 RF: 0 (DME) nebulizer accessories Kit See Rx Instructions .ROUTE .MEDSUPPLY Qty: 1 RF: 0 albuterol sulfate [Ventolin HFA] 90 mcg/actuation HFA aerosol inhaler 2 puff INHALATION QID PRN (Reason: shortness of breath or wheezing) 30 Days Qty: 6.7 RF: 2 metformin 500 mg tablet extended release 24 hr 1,000 mg PO BID 30 Days Qty: 120 RF: 2 duloxetine 60 mg capsule, delayed rel sprinkle 60 mg PO DAILY 30 Days Qty: 30 RF: 2 Coreg 6.25 mg tablet 6.25 mg PO BID Qty: 60 RF: 2 potassium chloride 20 mEq tablet,ER particles/crystals 20 meq PO DAILY 30 Days Qty: 30 RF: 2 budesonide-formoterol [Symbicort] 160-4.5 mcg/actuation HFA aerosol inhaler 2 puff INHALATION Q12H Qty: 10.2 RF: 2 Levemir FlexTouch U-100 Insuln 100 unit/mL (3 mL) insulin pen 10 unit SUBCUT DAILY 30 Days Qty: 3 RF: 2 furosemide [Lasix] 20 mg tablet 20 mg PO DAILY 30 Days Qty: 30 RF: 2 tramadol [Ultram] 50 mg tablet 50 mg PO QID PRN (Reason: pain) 30 Days Qty: 120 RF: 2 pregabalin [Lyrica] 150 mg capsule 150 mg PO BID 30 Days Qty: 60 RF: 0 cyclobenzaprine 10 mg tablet 10 mg PO TID PRN (Reason: muscle spasm) 30 Days Qty: 90 RF: 0 (DME) pen needle, diabetic [Easy Comfort Pen [place]] 31 gauge x 5/16 needle See Rx Instructions .ROUTE .MEDSUPPLY Qty: 1,200 RF: 0 Brilinta 90 mg tablet 90 mg PO BID 30 Days Qty: 60 RF: 2 aspirin [Aspir-81] 81 mg Tablet,Delayed Release (Dr/Ec) 81 mg PO DAILY RF: 0 atorvastatin 40 mg tablet 40 mg PO DAILY RF: 0 quetiapine [Seroquel] 50 mg tablet 50 mg PO BEDTIME RF: 0 cholecalciferol (vitamin D3) 1,250 mcg (50,000 unit) tablet 50,000 unit PO Q7D RF: 0 Ozempic 1 mg/dose (2 mg/1.5 mL) pen injector 1 mg SUBCUT Q7D RF: 0 ondansetron HCl [Zofran] 4 mg tablet 4 mg PO Q6H PRN (Reason: nausea and vomiting) Qty: 20 RF: 0 sucralfate [Carafate] 1 gram tablet 1 gm PO Q6H 28 Days Qty: 112 RF: 0 Changed isosorbide mononitrate 60 mg tablet extended release 24 hr 60 mg PO DAILY 90 Days Qty: 180 RF: 3 Discharge Orders: Discharge Order (Routine); Ordered 07/05/20 Ordered By: Salvador Sterling Referrals: Genevieve Crespo FNP-C [Primary Care Provider] - 4-7 days (Follow-up with concern of persistent leukocytosis) Marlee Olmos MD [Physician] - 2 weeks Discharge Diet: Cardiac and Diabetic Discharge Activity: Increase activity as tolerated Patient Instructions: Left Heart Catheterization (DC), Post Angiogram Home Care Instructions Activity Restrictions/Additional Instructions: Do not take your metformin until July 07. Keep follow-up with your primary care provider, for concern of leukocytosis that has been persistent. Follow-up with cardiology in 2 weeks. Reduce your Imdur to once daily. No smoking. 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 transplanted heart: [place] heart Dyslipidemia E78.5 Essential hypertension I10 Diabetes type 2, uncontrolled E11.65
[2020-07-05] MEDS: carvedilol 6.25 mg Tablet PO (08:24)
[2020-07-05] MEDS: pantoprazole DR 40 mg Tablet PO (08:24)
[2020-07-05] MEDS: FUROsemide 20 mg Tablet PO (08:24)
[2020-07-05] MEDS: aspirin 81 mg EC Tablet PO (08:24)
[2020-07-05] MEDS: ticagrelor 90 mg Tablet PO (08:24)
[2020-07-05] MEDS: topiramate 25 mg Tablet 50 MG PO (08:24)
[2020-07-05] MEDS: atorvastatin 40 mg Tablet PO (08:24)
[2020-07-05] MEDS: duloxetine 60 mg Capsule PO (08:24)
[2020-07-05] MEDS: pregabalin 150 mg Capsule PO (08:24)
[2020-07-05] MEDS: losartan 50 mg Tablet PO (08:26)
--- NOTE | 2020-07-05 09:49 | PM.PN ---
Subjective Subjective: Interval history: Patient is doing well. No complaints of chest pain, shortness of breath or palpitations. Coronary angiogram had shown patent previously placed mid circumflex stent, distal to stent there is a 50 to 60% stenosis not thought to be significant. LAD has luminal irregularities without significant stenosis, diagonal branch has luminal irregularity without significant stenosis. RCA is nondominant vessel without significant stenosis. Vitals/I&O/Wt Last Vital Signs Temp 98.2 F 07/05/20 07:11 Pulse 95 07/05/20 07:39 Resp 18 07/05/20 07:35 BP 144/77 07/05/20 08:26 Pulse Ox 95 07/05/20 07:35 07/04/20 07/05/20 07/05/20 22:59 06:59 14:59 Intake Total 1400 / 1800 700 / 2500 240 / 240 Output Total 550 / 1100 2000 / 3100 Balance 850 / 700 -1300 / -600 240 / 240 Weight last 48 hrs Weight 240 lb 11.2 oz Weight 231 lb 6.4 oz Weight 231 lb Weight 230 lb Physical Exam Narrative: EXAM NARRATIVE: GENERAL: Patient is alert, awake and oriented x3. [] NECK: No jugular vein distension. [] HEENT: No cyanosis. No icterus. No pallor. [] HEART: Regular S1 and S2. No murmur, rub or gallop. [] LUNGS: Clear to auscultate bilaterally. [] ABDOMEN: Soft, nontender and nondistended. Positive bowel sounds. No guarding, rebound or tenderness. [] CENTRAL NERVOUS SYSTEM: Grossly nonfocal. [] EXTREMITIES: Lower extremities with no significant edema bilaterally. Pulses palpable in the lower extremities, both dorsalis pedis and posterior tibial. [] Data : 07/05/20 03:35 07/05/20 03:35 A&P Assessment and plan (1) NSTEMI (non-ST elevated myocardial infarction): Patient underwent coronary angiogram not suggestive of any significant obstructive disease. She has patent prior mid circumflex stent with distal circumflex has 50 to 60% nonsignificant stenosis. Rest of all vessel has luminal irregularities without significant stenosis. Most likely cardiac marker leads could be from small vessel disease are small vessel plaque rupture. Continue Brilinta, aspirin statin beta-nany and isosorbide mononitrate. Patient is ready to be discharged from cardiology standpoint. (2) Atherosclerotic heart disease of [place] coronary artery with unspecified angina pectoris: As above. Continue to optimize medicine Status: Acute Qualifiers: [place] vs. transplanted heart: [place] heart Qualified Code(s): I25.119 - Atherosclerotic heart disease of [place] coronary artery with unspecified angina pectoris (3) Dyslipidemia: Patient is on statin will continue Status: Acute (4) Essential hypertension: Well-controlled continue meds Status: Chronic (5) Diabetes type 2, uncontrolled: As per medicine Status: Acute Additional A&P Information Tobacco abuse History of CVA COPD Chronic pain and chronic neuropathy. Thank you for allowing me to participate in patient's care. Please fee free to call with questions or concerns Attestations Medical Necessity Statement*: Care expected to cross 2 midnights. Patient had NSTEMI. Coding Level of Care Code Acute Ornamental Plaster Sticker for Nahed Alcazar Diagnoses NSTEMI (non-ST elevated myocardial infarction) I21.4 Atherosclerotic heart disease of [place] coronary artery with unspecified angina pectoris I25.119 [place] vs. transplanted heart: [place] heart Dyslipidemia E78.5 Essential hypertension I10 Diabetes type 2, uncontrolled E11.65
[2020-07-05 11:19] LABS: Glucose Point of Care 418 mg/dL (70-110)
--- NOTE | 2020-07-07 07:46 | PC.RESP ---
Smoking Cessation and Pulmonary Rehab information sent to patient.
== END 2020-07-05 11:17 | disposition home or self-care (01) | DRG 282 ==
LOC: ER 17:28 → ICU 17:55 → CSU 07-04 17:43
PROVIDERS: Emergency Medicine; Internal Medicine Cardiovascular Disease; Admitting Provider Internal Medicine; PCP Nurse Practitioner Family; Visit Provider Internal Medicine
PROC: B211YZZ Fluoroscopy of Multiple Coronary Arteries using Other Contrast (ICD-10-PCS; principal; 2020-07-04 12:00)
DX: I21.4 Non-ST elevation (NSTEMI) myocardial infarction (principal); I25.119 Atherosclerotic heart disease of native coronary artery with unspecified angina pectoris; I50.9 Heart failure, unspecified; I11.0 Hypertensive heart disease with heart failure; G89.29 Other chronic pain; J44.9 Chronic obstructive pulmonary disease, unspecified; M25.562 Pain in left knee; F17.210 Nicotine dependence, cigarettes, uncomplicated; Z86.73 Personal history of transient ischemic attack (TIA), and cerebral infarction without residual deficits; E78.5 Hyperlipidemia, unspecified; M79.7 Fibromyalgia; G47.00 Insomnia, unspecified; M47.817 Spondylosis without myelopathy or radiculopathy, lumbosacral region; E11.65 Type 2 diabetes mellitus with hyperglycemia; E11.42 Type 2 diabetes mellitus with diabetic polyneuropathy; E55.9 Vitamin D deficiency, unspecified; I25.2 Old myocardial infarction; Z79.82 Long term (current) use of aspirin; Z79.01 Long term (current) use of anticoagulants; Z79.84 Long term (current) use of oral hypoglycemic drugs; Z79.51 Long term (current) use of inhaled steroids; Z79.891 Long term (current) use of opiate analgesic
CPT/HCPCS: 12345; 36415; 36416; 71045; 71275; 80048; 80053; 81001; 82962; 83690; 83880; 84484; 85025; 85610; 85730; 87426; 93005; 93306; 93454; 94640; 96372; 96375; 99283; C1769; C1887; C1894; J1170; J1644; J1650; J1815; J2060; J2250; J2270; J2405; J3010; J3490; J7030; Q0163; Q9967

== ENCOUNTER → 2020-07-09 09:45 | Outpatient (BNVA) | payer MEDICARE, MEDICAID, SELFPAY | PROVIDERS: PCP Nurse Practitioner Family; Visit Provider Anesthesiology | DX: G89.29 Other chronic pain (principal); M54.42 Lumbago with sciatica, left side; M54.41 Lumbago with sciatica, right side; M51.06 Intervertebral disc disorders with myelopathy, lumbar region; M47.817 Spondylosis without myelopathy or radiculopathy, lumbosacral region; M47.819 Spondylosis without myelopathy or radiculopathy, site unspecified; F17.210 Nicotine dependence, cigarettes, uncomplicated; Z79.891 Long term (current) use of opiate analgesic; Z71.6 Tobacco abuse counseling | CPT/HCPCS: 73560; 73565; 99214 ==

== ENCOUNTER → 2020-07-11 10:11 | Outpatient (BNVA) | payer MEDICARE, MEDICAID, SELFPAY | PROVIDERS: PCP Nurse Practitioner Family; Visit Provider Nurse Practitioner Family | DX: I25.119 Atherosclerotic heart disease of native coronary artery with unspecified angina pectoris (principal) | CPT/HCPCS: 80048 ==

== ENCOUNTER → 2020-08-08 13:06 | Outpatient (BNVA) | payer MEDICARE, MEDICAID, SELFPAY | PROVIDERS: PCP Nurse Practitioner Family; Visit Provider Anesthesiology | DX: G89.29 Other chronic pain (principal); M51.06 Intervertebral disc disorders with myelopathy, lumbar region; M47.817 Spondylosis without myelopathy or radiculopathy, lumbosacral region; M47.819 Spondylosis without myelopathy or radiculopathy, site unspecified; E11.42 Type 2 diabetes mellitus with diabetic polyneuropathy; F17.210 Nicotine dependence, cigarettes, uncomplicated; Z79.891 Long term (current) use of opiate analgesic; Z71.6 Tobacco abuse counseling | CPT/HCPCS: 99214 ==

== ENCOUNTER → 2020-08-26 15:23 | Outpatient (BNVA) | payer MEDICARE, MEDICAID, SELFPAY | PROVIDERS: PCP Nurse Practitioner Family; Visit Provider Nurse Practitioner Family | DX: E11.65 Type 2 diabetes mellitus with hyperglycemia (principal); I50.9 Heart failure, unspecified; I10 Essential (primary) hypertension; J44.9 Chronic obstructive pulmonary disease, unspecified; E78.5 Hyperlipidemia, unspecified; E11.69 Type 2 diabetes mellitus with other specified complication; E55.9 Vitamin D deficiency, unspecified; F51.01 Primary insomnia; B37.3 Candidiasis of vulva and vagina | CPT/HCPCS: 80053; 80061; 82306; 83036; 84443; 85025 ==

== ENCOUNTER → 2020-09-09 14:33 | Outpatient (BNVA) | payer MEDICARE, MEDICAID, SELFPAY | PROVIDERS: PCP Nurse Practitioner Family; Referring Provider Orthopaedic Surgery; Visit Provider Orthopaedic Surgery | DX: Z11.59 Encounter for screening for other viral diseases (principal); Z01.818 Encounter for other preprocedural examination | CPT/HCPCS: 87635 ==

== ENCOUNTER 2020-09-15 13:20 | Observation (INO) | payer MEDICARE, MEDICAID, SELFPAY ==
[2020-08-29 08:23] VITALS: BMI 38.9
--- NOTE | 2020-08-29 08:31 | ECG_ITS ---
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 Measurements Intervals Mereta Rate: 87 P: 22 CO: 187 QRS: 3 QRSD: 93 T: 14 QT: 354 QTc: 428 Interpretive Statements SINUS RHYTHM INFERIOR MYOCARDIAL INFARCTION [40+ ms Q WAVE AND/OR ST/T ABNORMALITY IN II/aVF], PROBABLY OLD Compared to ECG 07/03/2020 20:58:42 Myocardial infarct finding now present Electronically Signed On 08-29-2020 20:18:24 ESCORT VEHICLE DRIVER by Brad Lyles M.D. [email or web address]
--- NOTE | 2020-08-29 09:33 | P.ANESASSM_ITS ---
Pre-Anesthetic Assessment Pre-Anesthetic Assessment: Height/Weight: Height 1.65 m Weight 106.141 kg Preop Diagnosis: Osteoarthritis left knee Proposed Procedure: Operation Date: 09/15/20 09:35 Proposed Procedures p Total Knee Arthroplasty 28787 M17.0(Left) - Vj Verma MD Familial anesthetic complications: none Social: Social History: Tobacco (1/2 ppd) and No alcohol Pack years: 25 Exam: Pre-Anes Outpt Exam: alert, oriented x 3, clear to auscultation bilaterally and regular rate & rhythm Airway: Submandibular: WNL Cervical ROM: WNL MP: 1 Dentition: False Pulmonary: Pulmonary: None reported CV/HEM: CV/HEM: CAD and HTN Comments: PTCA x4 4 years ago. PTCA in April [address] [place] Dugan with cardiac clearance : : None reported Hepatic: Hepatic: None reported GI: GI: None reported Metabolic: Metabolic: DM (avg 150-200) Musc/skel: Musc/skel: Lower Back Pain and OA/DJD Comments: lumbar fusion Neuropsych: Neuropsych: CVA (Oct 2019 memory loss) Anesthetic Plan: ASA status: 3 Anesthesia: Eval. for regional block and General Risk of > 500 ml blood loss (7ml/kg in children): Yes, adequate IV access and fluids planned PFSH Anesthesia 2 PFSH: Medical History Atherosclerotic heart disease of [place] coronary artery with unspecified angina pectoris Chest pain, midsternal Chronic congestive heart failure Chronic left-sided low back pain Chronic obstructive pulmonary disease, unspecified Chronic pain of left knee Congestive heart failure Current every day smoker CVA (cerebral vascular accident) Dyslipidemia Encounter for long-term opiate analgesic use Essential hypertension Fibromyalgia Fibromyalgia, primary Hyperlipidemia, mixed Insomnia Intervertebral disc disorder of lumbar region with myelopathy Low back pain radiating to both legs Lumbosacral spondylosis without myelopathy NSTEMI (non-ST elevated myocardial infarction) Thought to be secondary to plaque rupture. Angiogram July 04 no flow- limiting lesions, or restenosis of previous stent from April 2020 Opioid contract exists Osteoarthritis of spine at multiple levels Type 2 diabetes mellitus with diabetic autonomic (poly)neuropathy Vitamin D deficiency Surgical History History of arthroscopic surgery of elbow BILATERAL History of coronary angiogram Angiogram April 2020 with 90% circumflex lesion, drug-eluting stent placed by Dr. Jerome S/p bilateral carpal tunnel release S/P hysterectomy S/P knee surgery RIGHT S/P lumbar fusion DR. Shreya ZAYAS IN [place], [place] L4-L5, L5-S1 Status post lumbar laminectomy Family History Other CAD (coronary artery disease) Cancer Diabetes Social History Smoking and tobacco status: current every day smoker cigarettes [ Other cigarette details: PER PATIENT REPORT ] Second hand smoke exposure: Yes Smoking risk assessment/counseling performed?: Yes Alcohol intake: former Desire information about alcohol rehabilitation?: No Counseling given: No Desire information about substance/drug rehabilitation?: No Counseling given: No Caregiver/support person: No Lives independently: Yes Household members: family Housing: Manufactured/Mobile home Marital status: service: No Current occupational status: unemployed Pets and animals: Yes History of recent travel: No Current gender identity: Female Data Anesthesia CBC & Chem 7: 08/29/20 08:55 08/29/20 08:55 Cardiac Studies: No Data to Display
[2020-08-29 09:55] LABS: Anion Gap 16.6 (5-19); Blood Urea Nitrogen 7 mg/dL (6-20); Calcium 8.9 mg/dL (8.5-10.5); Carbon Dioxide 22 mmol/L (22-29); Chloride 99 mmol/L (98-107); Glomerular Filtration Rate 129.1 mL/min (90-130); Glucose 335 mg/dL (65-115); Osmolality Calculated 287 mOsm/kg (285-295); Potassium 4.6 mmol/L (3.5-5.1); Sodium 133 mmol/L (136-145)
[2020-09-15] VITALS (17 sets, daily range): BP systolic 101–124; BP diastolic 61–84; PULSE 76–92; RESP 11–20; TEMP 36.4–37.1; O2SAT 94–97
[2020-09-15] MEDS: acetaminophen 500 mg Tablet 1000 MG PO ×3 (07:56→21:12)
[2020-09-15] MEDS: gabapentin 300 mg Capsule PO ×2 (07:56→17:28)
[2020-09-15] MEDS: CELEcoxib 200 mg Capsule 400 MG PO (07:56)
[2020-09-15] MEDS: sodium chloride 0.9% 1,000 ML 30 ML IV (08:01)
[2020-09-15 08:08] LABS: Glucose Point of Care 341 mg/dL (70-110)
[2020-09-15] MEDS: vancomycin 1,000 MG in sodium chloride 0.9% 250 ML 250 MG IV (08:45)
--- NOTE | 2020-09-15 09:12 | P.ANESUD_ITS ---
Pre-Anesthetic Update Pre-Anesthetic Assessment: Date of Surgery/Procedure: 09/15/20 Preop Cathy gnosis: Osteoarthritis left knee Proposed Procedure: Operation Date: 09/15/20 09:35 Proposed Procedures p Total Knee Arthroplasty 36405 M17.0(Left) - Vj Verma MD Last Intake: Intake Last Liquid Date 09/14/20 Last Liquid Time 19:00 Last Solid Date 09/14/20 Last Solid Time 19:00 Labs Last 48hrs: Laboratory Results - last 48 hr 09/15/20 07:59 POC Glucose 341 Vitals: Pulse Rate 92 09/15/20 07:51 Respiratory Rate 16 09/15/20 07:51 Blood Pressure 109/61 09/15/20 07:51 Blood Pressure Kasey n 77 09/15/20 07:51 Pulse Oximetry 95 09/15/20 07:51 Exam: Pre-Anes Outpt Exam: alert, oriented x 3, clear to auscultation bilaterally and regular rate & rhythm Other Pertinent Information: Other Pertinent Information: Mild COPD--smoker Cardiac Studies: No Data to Display
--- NOTE | 2020-09-15 09:49 | P.HP_ITS ---
Same Day Surgery H&P Indication for Procedure/HPI DATE OF PROCEDURE: September 15, 2020 CHIEF COMPLAINT/INDICATIONFOR SURGICAL PROCEDURE: Osteoarthritis left knee here for left total knee arthroplasty PREOP DIAGNOSIS: Osteoarthritis left knee PLANNED PROCEDRUE: Operation Date: 09/15/20 09:35 Proposed Procedures p Total Knee Arthroplasty 73813 M17.0(Left) - Vj Verma MD Medications/Allergies* Home Medications Medication Instructions Recorded Confirmed Type pantoprazole 40 mg tablet,delayed 40 mg PO DAILY 11/05/19 09/15/20 History release topiramate 50 mg tablet 50 mg PO BID 11/05/19 09/15/20 History Ozempic 1 mg SUBCUT Q7D 06/14/20 09/15/20 History aspirin [Aspir-81] 81 mg PO DAILY 06/14/20 09/15/20 History atorvastatin 40 mg PO DAILY 06/14/20 09/15/20 History Allergies/Adverse Reactions Allergy/AdvReac Type Severity Reaction Status Date / Time adhesive Allergy Unknown Verified 08/29/20 08:09 clindamycin Allergy ADR-Itching Verified 08/29/20 08:09 codeine Allergy Unknown Verified 08/29/20 08:09 hydrocodone Allergy Unknown Verified 08/29/20 08:09 latex Allergy ALGY-Swell Verified 08/29/20 08:09 Lip/Tongue/Throat naproxen [From Naprosyn] Allergy Unknown Verified 08/29/20 08:09 nut - unspecified Allergy ALGY-Anaphy Verified 08/29/20 08:09 laxis oxycodone [From Roxicodone] Allergy ADR-Muscle Verified 08/29/20 08:09 Pain Penicillins Allergy Unknown Verified 08/29/20 08:09 sulfamethoxazole Allergy ADR-Migrain Verified 08/29/20 08:09 [From Bactrim] e trimethoprim [From Bactrim] Allergy ADR-Migrain Verified 08/29/20 08:09 e Current Medications: Generic Name Dose Route Start Last Admin Trade Name Freq PRN Reason Stop Dose Admin Sodium Chloride 1,000 mls @ 30 mls/hr 09/15/20 07:45 09/15/20 08:01 Sodium Chloride 0.9% IV 09/16/20 07:44 30 mls/hr .Q24H YUSUF Administration Pertinent History/Comorbid Conditions* Medical History (Updated 08/29/20 @ 17:47 by Darrell Jerome MD) Atherosclerotic heart disease of [place] coronary artery with unspecified angina pectoris Chest pain, midsternal Chronic congestive heart failure Chronic left-sided low back pain Chronic obstructive pulmonary disease, unspecified Chronic pain of left knee Congestive heart failure Current every day smoker CVA (cerebral vascular accident) Dyslipidemia Encounter for long-term opiate analgesic use Essential hypertension Fibromyalgia Fibromyalgia, primary Hyperlipidemia, mixed Insomnia Intervertebral disc disorder of lumbar region with myelopathy Low back pain radiating to both legs Lumbosacral spondylosis without myelopathy NSTEMI (non-ST elevated myocardial infarction) Thought to be secondary to plaque rupture. Angiogram July 04 no flow- limiting lesions, or restenosis of previous stent from April 2020 Opioid contract exists Osteoarthritis of spine at multiple levels Type 2 diabetes mellitus with diabetic autonomic (poly)neuropathy Vitamin D deficiency Surgical History (Updated 07/03/20 @ 17:06 by Salvador Sterling MD) History of arthroscopic surgery of elbow BILATERAL History of coronary angiogram Angiogram April 2020 with 90% circumflex lesion, drug-eluting stent placed by Dr. Jerome S/p bilateral carpal tunnel release S/P hysterectomy S/P knee surgery RIGHT S/P lumbar fusion DR. Shreya ZAYAS IN [place], [place] L4-L5, L5-S1 Status post lumbar laminectomy Family History (Updated 11/01/19 @ 08:57 by Jac Sesay RN) Diabetes CAD (coronary artery disease) Cancer Social History Smoking and tobacco status: current every day smoker cigarettes [ Other cigarette details: PER PATIENT REPORT ] Second hand smoke exposure: Yes Smoking risk assessment/counseling performed?: Yes Alcohol intake: former Desire information about alcohol rehabilitation?: No Counseling given: No Desire information about substance/drug rehabilitation?: No Counseling given: No Caregiver/support person: No Lives independently: Yes Household members: family Housing: Manufactured/Mobile home Marital status: service: No Current occupational status: unemployed Pets and animals: Yes History of recent travel: No Current gender identity: Female Pertinent Exam Findings alert, oriented x 3, clear to auscultation bilaterally, regular rate & rhythm, operative site marked and procedure specific exam findings Recommendations Surgery/Procedure today Coding Level of Care Code Acute Magnetic Observer for Nahed Alcazar
[2020-09-15] MEDS: insulin regular-human 100 units/1 mL 10 UNIT IVP ×2 (09:51→13:11)
[2020-09-15 10:11] LABS: Glucose Point of Care 268 mg/dL (70-110)
[2020-09-15] MEDS: EPINEPHrine 1 mg/mL INJ XX (11:05)
--- NOTE | 2020-09-15 11:34 | ANES.PROC ---
Anesthesia Procedures Procedure/Date: 09/15/20 Left adductor canal blk Procedure Narrative: Patient prepped and positioned in OR. Nerve Block ^: Nerve Block 1: Main Anesthesia: general anesthesia Time Out Performed: Yes Consent: from patient and risks and benefits reviewed Nerve block location: adductor canal Anesthesia monitors applied: pulse oximetry, EKG, BP cuff and oxygen Nerve block position: supine Anesthetic Used: bupivacaine 0.5% (with decadron) Amount of anesthesia used (mL): 30 Ultrasound used to: recognize landmarks Nerve Stimulator Used?: No Interscalene/Femoral BLK: 4 stimuplex 21 g needle used for position and inplane approach Injection: neg aspiration of heme Patient Tolerated Procedure: no complications Complications: none
--- NOTE | 2020-09-15 12:29 | XRR_ITS ---
PROCEDURE INFORMATION: Exam: XR Left Knee Exam date and time: 09/15/2020 12:42 PM Age: 55 years old Clinical indication: Device placement; Joint replacement hardware; Prior surgery; Surgery date: Post-operative (0-2 days); Additional info: Left total knee arthroplasty TECHNIQUE: Imaging protocol: XR Left knee. Views: 1 or 2 views. COMPARISON: CR XR knees AP WB w LT lmt ORTH 07/09/2020 2:09 PM FINDINGS: Bones/joints: The patient has undergone recent insertion of a total knee prosthesis. Some gas is present from the recent surgery. No fractures are seen. The overall position and alignment appears satisfactory. Soft tissues: Otherwise unremarkable.. XR/XR knee LT 1-2V [id number] IMPRESSION: Satisfactory appearance of the total knee prosthesis.
--- NOTE | 2020-09-15 12:30 | PM.OP ---
Operative Report Date of procedure: September 15, 2020 Pre-op Diagnosis: Osteoarthritis left knee Post-op diagnosis: same Post-op Findings: Same Procedure Done: Left total knee arthropod Implants: Stephanie total knee arthroplasty components were used includin) Size 4 triathalon cruciate retaining femoral component 2) Size 4 Tritanium tibial component 3) 32 mm /9 mm thickness Tritanium asymetric patella 4) Size 4/9 mm thickness CR tibial bearing insert Pathology: none sent Surgeon: Vj Verma Anesthesia: General Estimated blood loss (mL): 300 Complications: None Findings: The patient had exposed eburnated bone over the medial femoral condyle medial tibial plateau patella and trochlea with a roughened irregular remaining cartilaginous surface over those area Condition: stable Procedure: The patient was taken to the operating room. No tranexamic was provided with the patient's cardiac history and recent stent the above anesthesia provided by the anesthesia service. A timeout was performed. The patient was prepped and draped in the usual fashion with the lower extremity exposed. A anterior incision was made, midline, from a point proximal to the patella to the distal tibial tubercle. The knee was entered through a medial parapatellar approach. The patella could be displaced laterally and the knee flexed. The patellar fat pad was resected to provide better visibility. Retractors were placed medially and laterally adjacent to the tibial plateau. The femoral canal was drilled in line with the longitudinal axis of the femur. Intramedullary femoral guide for used to make a distal femoral cut in 5 degrees of valgus, resecting 8 mm from the more prominent condyle. Next the extra medullary tibial guide was placed in alignment with the longitudinal axis of the tibia. The cutting guides were set to remove just over 9 mm from the high tibial plateau. The proximal tibia was then cut. The femoral measuring guide was then placed over the distal femur. Rotation was verified checking the relationship of the guide to the condyle and the trochlear groove. The femur was measured and cut for the desired femoral component. The desired tibial baseplate was then chosen. A trial reduction with the femur tibial baseplate and polyethylene was done, assuring that the knee was stable throughout full motion. Ligament balancing bone releases nothing more than the deep medial collateral ligament.The tibia was prepared for the tibial baseplate. Patellar thickness was then measured. The patella was cut removing articular cartilage and prepared for appropriate size patellar button. All surfaces were cleaned with pulsatile lavage. The femur tibia and patella were then press-fit into place. The posterior capsule and collateral ligaments were then injected with a solution of 100 mL of 0.2% ropivacaine, 1 mL of a 1:1000 epinephrine solution, and 30 mg of Toradol. Final polyethylene component was then snapped into place into the tibia. 2 grams of tranexamic acid were applied to the wound. The tourniquet was deflated. The tranxanemic acid was left contact with the knee for 5 minutes before the knee was irrigated with saline. The extensor retinaculum was closed with 1 Ethibond. The subcutaneous tissues were closed with 2-0 Vicryl and the skin was closed with skin jayme. A compressive dressing was applied. The patient was taken to recovery room in stable condition.
[2020-09-15] MEDS: ipratropium 0.5 mg/2.5 mL Neb INHALATION (12:49)
[2020-09-15 13:03] LABS: Glucose Point of Care 298 mg/dL (70-110)
--- NOTE | 2020-09-15 13:29 | PM.PACU ---
PACU note PACU note: VSS Post-Anesthesia Exam: awake Disposition: admitted
[2020-09-15 13:46] LABS: Glucose Point of Care 293 mg/dL (70-110)
[2020-09-15] MEDS: chlorhexidine gluconate 0.12% Btl 473 mL 30 ML MUCOUS MEM ×3 (14:11→21:13)
[2020-09-15] MEDS: morphine 4 mg/mL SDV 1 mL 2 MG IVP ×2 (14:14→19:58)
[2020-09-15] MEDS: albuterol 8 gm MDI 2 PUFF INHALATION (15:17)
--- NOTE | 2020-09-15 17:13 | PC.RESP ---
Smoking Cessation and Pulmonary Rehab information sent to patient.
[2020-09-15] MEDS: ranolazine (12HR) 500 mg Tablet 1000 MG PO (17:27)
[2020-09-15] MEDS: doxycycline 100 mg Tablet PO (17:28)
[2020-09-15] MEDS: topiramate 25 mg Tablet 50 MG PO (17:28)
[2020-09-15] MEDS: carvedilol 6.25 mg Tablet PO (17:28)
[2020-09-15] MEDS: sennosides-docusate Tablet 2 TAB PO (17:28)
[2020-09-15] MEDS: pregabalin 150 mg Capsule PO ×2 (17:28→21:11)
[2020-09-15] MEDS: oxyCODONE 5 mg IR Tab/Cap PO (17:53)
[2020-09-15 17:58] LABS: Glucose Point of Care 517 mg/dL (70-110)
[2020-09-15] MEDS: mupirocin oint 22 gm 1 APPLIC NASAL (18:03)
[2020-09-15 20:28] LABS: Glucose Point of Care 511 mg/dL (70-110)
[2020-09-15] MEDS: quetiapine 25 mg Tablet 50 MG PO (21:11)
[2020-09-15] MEDS: ticagrelor 90 mg Tablet PO (21:13)
[2020-09-16] VITALS (11 sets, daily range): BP systolic 118–175; BP diastolic 82–97; PULSE 82–101; RESP 16–18; TEMP 36.2–36.7; O2SAT 92–96
[2020-09-16] MEDS: morphine 4 mg/mL SDV 1 mL 2 MG IVP ×2 (00:11→04:37)
[2020-09-16] MEDS: TRAMadol 50 mg Tablet PO ×2 (01:19→07:57)
[2020-09-16] MEDS: oxyCODONE 5 mg IR Tab/Cap PO ×2 (02:28→07:58)
[2020-09-16 03:05] LABS: Glucose Point of Care 486 mg/dL (70-110)
[2020-09-16 05:26] LABS: Hemoglobin 11.4 g/dL (11.5-15.3)
[2020-09-16] MEDS: acetaminophen 500 mg Tablet 1000 MG PO (05:36)
[2020-09-16 06:50] LABS: Glucose Point of Care 387 mg/dL (70-110)
[2020-09-16] MEDS: potassium chloride ER 20 mEq Tablet PO (08:01)
[2020-09-16] MEDS: sennosides-docusate Tablet 2 TAB PO (08:01)
[2020-09-16] MEDS: duloxetine 60 mg Capsule PO (08:01)
[2020-09-16] MEDS: aspirin 81 mg EC Tablet PO (08:01)
[2020-09-16] MEDS: pantoprazole DR 40 mg Tablet PO (08:02)
[2020-09-16] MEDS: topiramate 25 mg Tablet 50 MG PO (08:02)
[2020-09-16] MEDS: losartan 50 mg Tablet PO (08:02)
[2020-09-16] MEDS: atorvastatin 40 mg Tablet PO (08:03)
[2020-09-16] MEDS: pregabalin 150 mg Capsule PO (08:03)
[2020-09-16] MEDS: ranolazine (12HR) 500 mg Tablet 1000 MG PO (08:03)
[2020-09-16] MEDS: carvedilol 6.25 mg Tablet PO (08:03)
[2020-09-16] MEDS: mupirocin oint 22 gm 1 APPLIC NASAL (08:03)
[2020-09-16] MEDS: isosorbide mononitrate ER 60 mg Tablet PO (08:03)
[2020-09-16] MEDS: doxycycline 100 mg Tablet PO (08:03)
[2020-09-16] MEDS: FUROsemide 20 mg Tablet PO (08:03)
[2020-09-16] MEDS: gabapentin 300 mg Capsule PO (08:04)
[2020-09-16] MEDS: fluconazole 100 mg Tablet 150 MG PO (08:10)
[2020-09-16] MEDS: chlorhexidine gluconate 0.12% Btl 473 mL 30 ML MUCOUS MEM (08:10)
[2020-09-16] MEDS: ticagrelor 90 mg Tablet PO (08:10)
[2020-09-16] MEDS: albuterol 8 gm MDI 2 PUFF INHALATION (08:39)
--- NOTE | 2020-09-16 10:10 | PC.CHAP ---
Pastoral Care Encounter/Spiritual Assessment Type of Contact [] Declined inbound telemarketer visit [] Patient/Family/Request visit [] Outpatient visit [] Follow-up visit [] Physician referral [] Code/Alert [] Routine visit [] Staff referral [] Actively dying [] Patient sleeping [] Family support [] [] Out of room [] Palliative care [] [] Receiving care in room [] Pre-surgical visit [] Trauma [] Long length of stay [] ICU visit [] Other: Relational/Emotional Strength [] Patient feels connected with others/family/visitors/staff [] Distress [] Loneliness/isolation [] Abandonment Spirituality of Patient [x] Person of Mary [] Attends Zoroastrianism of their Mary [] Believes in Prayer [] Reads Bible or Gnosticist materials [] There are Spiritual issues to be addressed Software Development Analyst Interventions [x] Prayer [] Active listening [] Non-anxious presence [] Spiritual/emotional support [] Crisis/trauma care [] Spiritual counseling [] Bereavement support [] Provided bereavement packet [] Provided Bible/devotional materials [] Provided toy/stuffed animal, coloring book to patient or family member [] Provided Communion [] Anointing/[place] [] Salvation [] Completed spiritual assessment [] Other: Impact on Illness or Injury [] Angry [] Fearful [] Anxious [] Often cries [] Exhaustion [] Unable to work [] Unable to attend christian [] Unable to walk/stand [] Unable to read [] Unable to drive [] Unable to eat/drink [] Unable to sleep [] Unable to be with family [] Patient intubated [] Other: Summary feeling better ready to go home Time spent with patient 15 min
[2020-09-16 10:45] LABS: Glucose Point of Care 430 mg/dL (70-110)
--- NOTE | 2020-09-16 13:03 | P.DS_ITS ---
Discharge Providers Date of Admission: 09/15/20 13:20 Date of Discharge: September 16, 2020 Attending Provider at Admission: Vj Verma MD Attending Provider at Discharge: Vj Verma MD Primary Care Provider: CHARLOTTE Pugh Diagnoses at Discharge Discharge Diagnosis (1) Status post left knee replacement: Status: Acute (2) Osteoarthritis of left knee: Status: Resolved (3) Obesity (BMI 35.0-39.9 without comorbidity): Status: Acute (4) Diabetes type 2, uncontrolled: Status: Acute Qualifiers: Glycemic state: with hyperglycemia Qualified Code(s): E11.65 - Type 2 diabetes mellitus with hyperglycemia Reason for Visit Reason for Visit: total knee arthroplasty Hospital Course Hospital Course Ms. Ascencio was admitted to the hospital on 09/15/2020 and underwent elective left total knee arthroplasty. She was admitted overnight and placed on a sliding scale insulin protocol. She made excellent progress with therapy her pain was controlled by the first postoperative day with oral medications. She was independent with her walker and thought stable for discharge Physical Exam Narrative: EXAM NARRATIVE: On the day of discharge the knee incision was clean. They had no drainage. There is minimal swelling in the thigh and knee and the calf. No distal neurovascular deficits were noted Urinary Catheter Management^: [place]: Cath Placed During This Visit: yes, but has since been removed by the nurse Reason for Continuing Indwelling Catheter: Required Immobilization for Trauma or Surgery or Anesthesia Urinary Catheter Date of Insertion: 09/15/20 Urinary Catheter Time of Insertion: 10:40 Date Urinary Catheter Removed: 09/16/20 Time Urinary Catheter Discontinued: 06:00 Discharge Data Data Completed and Pending: Completed Studies During Hospitalization Category Date Time Status XR knee LT 1-2V 7 3560 Routine Exams 09/15/20 12:29 Completed Labs from last 24 hours 09/16/20 09/16/20 09/16/20 10:36 06:28 04:41 Hgb 11.4 L POC Glucose 430 387 09/16/20 09/15/20 09/15/20 02:52 20:18 17:54 Hgb POC Glucose 486 511 517 09/15/20 09/15/20 13:42 12:54 Hgb POC Glucose 293 298 Vitals: Last Vital Signs Temp 98.1 F 09/16/20 11:36 Pulse 82 09/16/20 11:36 Resp 18 09/16/20 11:36 BP 118/83 09/16/20 11:36 Pulse Ox 94 09/16/20 11:36 Discharge Plan Discharge Patient Disposition: Home Health Service Condition: Stable Prescriptions: New hydromorphone 4 mg Tablet 4 mg PO Q6H PRN (Reason: mild pain) 7 Days Qty: 28 RF: 0 Continued nitroglycerin 0.4 mg tablet, sublingual 0.4 mg SUBLINGUAL Q5M PRN (Reason: chest pains) Qty: 25 RF: 3 ranolazine 500 mg tablet extended release 12 hr 1,000 mg PO BID Qty: 360 RF: 3 (DME) blood-glucose meter [OneTouch Ultra2 Meter] Kit See Rx Instructions .ROUTE .MEDSUPPLY Qty: 1 RF: 0 (DME) OneTouch Ultra Blue Test Strip Strip See Rx Instructions .ROUTE .MEDSUPPLY Qty: 200 RF: 5 (DME) lancets [OneTouch Delica Plus Lancet] 33 gauge misc See Rx Instructions .ROUTE .MEDSUPPLY Qty: 200 RF: 5 losartan 50 mg tablet 50 mg PO DAILY Qty: 30 RF: 2 tramadol [Ultram] 50 mg tablet 50 mg PO .5 times a day PRN (Reason: pain) 30 Days Qty: 150 RF: 2 pregabalin [Lyrica] 150 mg capsule 150 mg PO TID 30 Days Qty: 90 RF: 2 cyclobenzaprine 10 mg tablet 10 mg PO TID PRN (Reason: muscle spasm) 30 Days Qty: 90 RF: 2 duloxetine 60 mg capsule, delayed rel sprinkle 60 mg PO DAILY 30 Days Qty: 30 RF: 2 Levemir FlexTouch U-100 Insuln 100 unit/mL (3 mL) insulin pen 10 unit SUBCUT DAILY 30 Days Qty: 3 RF: 2 furosemide [Lasix] 20 mg tablet 20 mg PO DAILY 30 Days Qty: 30 RF: 2 Coreg 6.25 mg tablet 6.25 mg PO BID 30 Days Qty: 60 RF: 2 budesonide-formoterol [Symbicort] 160-4.5 mcg/actuation HFA aerosol inhaler 2 puff INHALATION Q12H Qty: 10.2 RF: 2 albuterol sulfate [Ventolin HFA] 90 mcg/actuation HFA aerosol inhaler 2 puff INHALATION QID PRN (Reason: shortness of breath or wheezing) 30 Days Qty: 6.7 RF: 2 quetiapine [Seroquel] 50 mg tablet 50 mg PO BEDTIME 30 Days Qty: 30 RF: 2 potassium chloride 20 mEq tablet,ER particles/crystals 20 meq PO DAILY 30 Days Qty: 30 RF: 2 topiramate 50 mg tablet 50 mg PO BID RF: 0 pantoprazole [Protonix] 40 mg tablet,delayed release (DR/EC) 40 mg PO DAILY RF: 0 (DME) compressor, for nebulizer Device See Rx Instructions .ROUTE .MEDSUPPLY Qty: 1 RF: 0 (DME) nebulizer accessories Kit See Rx Instructions .ROUTE .MEDSUPPLY Qty: 1 RF: 0 doxycycline hyclate 100 mg capsule 100 mg PO BID 10 Days Qty: 20 RF: 0 (DME) pen needle, diabetic [Easy Comfort Pen [place]] 31 gauge x 5/16 needle See Rx Instructions .ROUTE .MEDSUPPLY Qty: 1,200 RF: 0 Brilinta 90 mg tablet 90 mg PO BID Qty: 180 RF: 3 metformin 500 mg tablet extended release 24 hr 1,000 mg PO BID 30 Days Qty: 120 RF: 2 aspirin [Aspir-81] 81 mg Tablet,Delayed Release (Dr/Ec) 81 mg PO DAILY RF: 0 atorvastatin 40 mg tablet 40 mg PO DAILY RF: 0 Ozempic 1 mg/dose (2 mg/1.5 mL) pen injector 1 mg SUBCUT Q7D RF: 0 isosorbide mononitrate 60 mg tablet extended release 24 hr 60 mg PO DAILY 90 Days Qty: 180 RF: 3 Discharge Orders: Discharge Order (Routine); Ordered 09/16/20 Ordered By: Vj Verma Other Ambulatory Orders: DME: Ervin (Order) Location: None Selected Ordered By: Vj Verma Referrals: Vj Verma MD [Physician] - 09/18/20 1:15 pm (Additional appointment on 09/30/2020 @ 2437) Discharge Diet: Advance as tolerated Discharge Activity: Limit activity as instructed Patient Instructions: Hydromorphone (By mouth), Total Knee Replacement (DC) Activity Restrictions/Additional Instructions: May shower once incisions completely free of drainage. Discontinue knee dressing in 24-48 hours. Replaced dressings as needed. take Dilaudid for breakthrough pain. Exercises per physical therapy. May weight-bear as tolerated on total knee arthroplasty Discharge Attestations Time Spent in Discharge Care*: other Quality Metrics Clinical Quality Measures During this hospital stay, did patient experience: None Coding Level of Care Code Acute Recreation Programmer for Nahed Alcazar Diagnoses Status post left knee replacement Z96.652 Osteoarthritis of left knee M17.12 Obesity (BMI 35.0-39.9 without comorbidity) E66.9 Diabetes type 2, uncontrolled E11.65 Glycemic state: with hyperglycemia
== END 2020-09-16 12:06 | disposition home health service (06) ==
LOC: MEDSURG 13:20
PROVIDERS: Anesthesiology; Admitting Provider Orthopaedic Surgery; PCP Nurse Practitioner Family; Visit Provider Orthopaedic Surgery
PROC: (CPT 27447; principal; 2020-09-15 09:05)
DX: M17.12 Unilateral primary osteoarthritis, left knee (principal); E66.9 Obesity, unspecified; Z68.38 Body mass index [BMI] 38.0-38.9, adult; E11.65 Type 2 diabetes mellitus with hyperglycemia; I25.119 Atherosclerotic heart disease of native coronary artery with unspecified angina pectoris; I11.0 Hypertensive heart disease with heart failure; I50.9 Heart failure, unspecified; F17.210 Nicotine dependence, cigarettes, uncomplicated; Z86.73 Personal history of transient ischemic attack (TIA), and cerebral infarction without residual deficits; M79.7 Fibromyalgia; E78.2 Mixed hyperlipidemia; E55.9 Vitamin D deficiency, unspecified
CPT/HCPCS: 27447; 12345; 36415; 36416; 64450; 73560; 76942; 80048; 82962; 85018; 93005; 94640; 96361; 96365; 96372; 96374; 96375; 97110; 97116; 97161; 97165; 97530; C1776; G0378; J0171; J1100; J1580; J1815; J2270; J2405; J2710; J2795; J3010; J3370; J3490; J3535; J7030; J7050; J7611; J7644

== ENCOUNTER 2020-09-18 14:53 | Emergency (ER) | payer MEDICARE, MEDICAID, SELFPAY ==
--- NOTE | 2020-09-18 14:56 | XR_ITS ---
WS: [id number] Left knee, 3 views, 09/18/2020 Clinical Data: pain Comparison: Left knee, 09/15/2020. Findings: The left knee arthroplasty is intact. The components show no displacement. Anterior surgical jayme are still present. The soft tissues are normal. No fractures or dislocations are seen. XR/XR knee LT 3V* [id number] Impression: Left knee arthroplasty, intact and unchanged.
[2020-09-18 14:59] VITALS: BP 160/87; PULSE 100; RESP 18; TEMP 36.4; O2SAT 96; BMI 35.7
--- NOTE | 2020-09-18 15:54 | W.ED.EXTPRO ---
HPI - Extremity Problem General: Chief complaint: Extremity Injury, Lower Stated complaint: L KNEE SURGERY 09.15.20, STEPPED UP/KNEE POPPED Time Seen by Provider: 09/18/20 15:54 Source: patient Mode of arrival: ambulatory Limitations: no limitations History of Present Illness: HPI Narrative: Patient comes in for concern of left knee pain. Patient reports she was walking into the bank when she felt a pop in her left knee. Patient had recently had a knee replacement as of September 15. Patient had to maneuver into the bank which required her to put weight on her knee that she was not used to. Patient appears well. Patient appears in no acute distress. Review of Systems General: Reports: 10 or more systems reviewed and unremarkable except in HPI and below Musc: Reports: joint pain PFSH ED PFSH: Medical History (Updated 09/18/20 @ 16:18 by KATHY Barrera) Atherosclerotic heart disease of [place] coronary artery with unspecified angina pectoris Chest pain, midsternal Chronic congestive heart failure Chronic left-sided low back pain Chronic obstructive pulmonary disease, unspecified Chronic pain of left knee Congestive heart failure Current every day smoker CVA (cerebral vascular accident) Dyslipidemia Encounter for long-term opiate analgesic use Essential hypertension Fibromyalgia Fibromyalgia, primary Hyperlipidemia, mixed Insomnia Intervertebral disc disorder of lumbar region with myelopathy Low back pain radiating to both legs Lumbosacral spondylosis without myelopathy NSTEMI (non-ST elevated myocardial infarction) Thought to be secondary to plaque rupture. Angiogram July 04 no flow-limiting lesions, or restenosis of previous stent from April 2020 Opioid contract exists Osteoarthritis of spine at multiple levels Type 2 diabetes mellitus with diabetic autonomic (poly)neuropathy Vitamin D deficiency Surgical History History of arthroscopic surgery of elbow BILATERAL History of coronary angiogram Angiogram April 2020 with 90% circumflex lesion, drug-eluting stent placed by Dr. Jerome S/alis bilateral carpal tunnel release S/P hysterectomy S/P knee surgery RIGHT S/P lumbar fusion DR. Shreya ZAYAS IN [place], [place] L4-L5, L5-S1 Status post lumbar laminectomy Family History Other CAD (coronary artery disease) Cancer Diabetes Social History (Reviewed 09/17/20 @ 16:04 by ROBBI Black Smoking and tobacco status: current every day smoker cigarettes [ Other cigarette details: PER PATIENT REPORT ] Second hand smoke exposure: Yes Smoking risk assessment/counseling performed?: Yes Alcohol intake: former Desire information about alcohol rehabilitation?: No Counseling given: No Desire information about substance/drug rehabilitation?: No Counseling given: No Caregiver/support person: No Lives independently: Yes Household members: family Housing: Manufactured/Mobile home Marital status: service: No Current occupational status: unemployed Pets and animals: Yes History of recent travel: No Current gender identity: Female Physical Exam Const: COMMON NORMALS: no acute distress and patient oriented x3 GENERAL APPEARANCE: cooperative HENMT: COMMON NORMALS: normocephalic and Normal external nose present HEAD & SCALP: normal to inspection and normocephalic NOSE: Normal external nose present MOUTH: Normal oral and palatal mucosa present THROAT: posterior oropharynx normal Eye: GENERAL EYE: appearance normal, both eyes and all related structures Neck/C-Spine: COMMON NORMALS: full ROM Lymph: LYMPHATIC: no lymphadenopathy noted Chest: COMMONS NORMALS: normal inspection of the chest Resp: COMMON NORMALS: normal respiratory effort EFFORT & INSPECTION: Yes able to speak in complete sentences Cardio: COMMON NORMALS: regular rate and regular rhythm RATE: regular rate RHYTHM: regular rhythm GI: COMMON NORMALS: non-tender Back/Pelvis: COMMON NORMALS: thoracic and lumbar spine normal to inspection Extremity: NARRATIVE EXTREMITY EXAM: Some clear drainage noted from the wound site. Patient does have some swelling to the knee. No obvious redness is noted to the wound. Wound is well approximated. Neuro: COMMON NORMALS: patient oriented x3 and moves all extremities Psych: COMMON NORMALS: mental status grossly normal and cooperative Skin: COMMON NORMALS: no rashes or lesions noted GENERAL SKIN EXAM: no rashes or lesions noted Course Vital Signs: Vital signs: Vital Signs Temperature 97.6 F 09/18/20 14:59 Pulse Rate 100 09/18/20 14:59 Respiratory Rate 18 09/18/20 16:19 Blood Pressure 160/87 09/18/20 14:59 Pulse Oximetry 98 09/18/20 16:19 MDM - Extremity (Nontraumatic) MDM Narrative: Medical decision making narrative: Patient comes in for evaluation of discomfort to the left knee after bearing weight on the knee. Exam was unremarkable. Vital signs were normal. Differential diagnosis includes fracture, displacement of replacement hardware, tendinopathy. X-rays were normal. No signs of dislocation or fracture. Patient was recommended to maintain routine care and follow-up with primary care. Discharge Plan Discharge Patient Disposition: Home Clinical Impression: Acute postoperative pain of left knee Condition: Stable Prescriptions: No Action nitroglycerin 0.4 mg tablet, sublingual 0.4 mg SUBLINGUAL Q5M PRN (Reason: chest pains) Qty: 25 RF: 3 ranolazine 500 mg tablet extended release 12 hr 1,000 mg PO BID Qty: 360 RF: 3 (DME) blood-glucose meter [Cyalume TechnologiesTouch Ultra2 Meter] Kit See Rx Instructions .ROUTE .MEDSUPPLY Qty: 1 RF: 0 (DME) OneTouch Ultra Blue Test Strip Strip See Rx Instructions .ROUTE .MEDSUPPLY Qty: 200 RF: 5 (DME) lancets [OneTouch Delica Plus Lancet] 33 gauge misc See Rx Instructions .ROUTE .MEDSUPPLY Qty: 200 RF: 5 losartan 50 mg tablet 50 mg PO DAILY Qty: 30 RF: 2 tramadol [Ultram] 50 mg tablet 50 mg PO .5 times a day PRN (Reason: pain) 30 Days Qty: 150 RF: 2 pregabalin [Lyrica] 150 mg capsule 150 mg PO TID 30 Days Qty: 90 RF: 2 cyclobenzaprine 10 mg tablet 10 mg PO TID PRN (Reason: muscle spasm) 30 Days Qty: 90 RF: 2 duloxetine 60 mg capsule, delayed rel sprinkle 60 mg PO DAILY 30 Days Qty: 30 RF: 2 Levemir FlexTouch U-100 Insuln 100 unit/mL (3 mL) insulin pen 10 unit SUBCUT DAILY 30 Days Qty: 3 RF: 2 Coreg 6.25 mg tablet 6.25 mg PO BID 30 Days Qty: 60 RF: 2 budesonide-formoterol [Symbicort] 160-4.5 mcg/actuation HFA aerosol inhaler 2 puff INHALATION Q12H Qty: 10.2 RF: 2 albuterol sulfate [Ventolin HFA] 90 mcg/actuation HFA aerosol inhaler 2 puff INHALATION QID PRN (Reason: shortness of breath or wheezing) 30 Days Qty: 6.7 RF: 2 quetiapine [Seroquel] 50 mg tablet 50 mg PO BEDTIME 30 Days Qty: 30 RF: 2 topiramate 50 mg tablet 50 mg PO BID RF: 0 pantoprazole [Protonix] 40 mg tablet,delayed release (DR/EC) 40 mg PO DAILY RF: 0 furosemide 40 mg tablet 40 mg PO DAILY Qty: 90 RF: 3 potassium chloride 20 mEq tablet,ER particles/crystals 20 meq PO DAILY Qty: 90 RF: 3 (DME) compressor, for nebulizer Device See Rx Instructions .ROUTE .MEDSUPPLY Qty: 1 RF: 0 (DME) nebulizer accessories Kit See Rx Instructions .ROUTE .MEDSUPPLY Qty: 1 RF: 0 doxycycline hyclate 100 mg capsule 100 mg PO BID 10 Days Qty: 20 RF: 0 (DME) pen needle, diabetic [Easy Comfort Pen [place]] 31 gauge x 5/16 needle See Rx Instructions .ROUTE .MEDSUPPLY Qty: 1,200 RF: 0 Brilinta 90 mg tablet 90 mg PO BID Qty: 180 RF: 3 metformin 500 mg tablet extended release 24 hr 1,000 mg PO BID 30 Days Qty: 120 RF: 2 aspirin [Aspir-81] 81 mg Tablet,Delayed Release (Dr/Ec) 81 mg PO DAILY RF: 0 atorvastatin 40 mg tablet 40 mg PO DAILY RF: 0 Ozempic 1 mg/dose (2 mg/1.5 mL) pen injector 1 mg SUBCUT Q7D RF: 0 isosorbide mononitrate 60 mg tablet extended release 24 hr 60 mg PO DAILY 90 Days Qty: 180 RF: 3 hydromorphone 4 mg Tablet 4 mg PO Q6H PRN (Reason: mild pain) 7 Days Qty: 28 RF: 0 Discharge Orders: Discharge ED (Routine); Ordered 09/18/20 Ordered By: Ernesto Holman Referrals: Genevieve Crespo FNP-C [Primary Care Provider] - Discharge Diet: Usual diet Discharge Activity: Limit activity as instructed Patient Instructions: Knee Pain (ED) Activity Restrictions/Additional Instructions: Continue routine care as directed. Take medication only as prescribed. Monitor for fever. Follow-up with primary care or surgeon as directed. Return to the emergency room for new concerns. Coding Level of Care Code ED Phys Assistant for [facility] Fwd Exam Comprehensive
[2020-09-18 16:19] VITALS: RESP 18; O2SAT 98
[2020-09-18] MEDS: HYDROmorphone 1 mg/mL INJ 1 mL 0.5 MG SUBCUT (16:19)
--- NOTE | 2020-09-18 16:30 | PC.NURSE ---
went to d/c pt and checked vs, hr 113, o2 83% ra, pt states wears 2L nc PRN at home, will notify erp about this. pt placed on 2L nc
--- NOTE | 2020-09-18 16:33 | PC.NURSE ---
discussed low o2 sats with barry who states pt needs to go home and use her oxygen, as pt came up to 92% after being placed on 2L in less than a minute. going to give pt dose of lasix and potassium then d/c
[2020-09-18 16:35] VITALS: PULSE 102; RESP 20; O2SAT 92
[2020-09-18] MEDS: FUROsemide 40 mg Tablet PO (16:35)
[2020-09-18] MEDS: potassium chloride ER 20 mEq Tablet PO (16:35)
[2020-09-18 16:37] VITALS: PULSE 107; RESP 20; O2SAT 94
== END 2020-09-18 16:37 | disposition home or self-care (01) ==
PROVIDERS: Emergency Provider Nurse Practitioner Family; PCP Nurse Practitioner Family
DX: G89.18 Other acute postprocedural pain (principal); M25.562 Pain in left knee; Z79.82 Long term (current) use of aspirin; Z79.4 Long term (current) use of insulin; I25.119 Atherosclerotic heart disease of native coronary artery with unspecified angina pectoris; I11.0 Hypertensive heart disease with heart failure; I50.9 Heart failure, unspecified; J44.9 Chronic obstructive pulmonary disease, unspecified; Z86.73 Personal history of transient ischemic attack (TIA), and cerebral infarction without residual deficits; E78.2 Mixed hyperlipidemia; I25.2 Old myocardial infarction; E11.42 Type 2 diabetes mellitus with diabetic polyneuropathy; F17.210 Nicotine dependence, cigarettes, uncomplicated
CPT/HCPCS: 12345; 73562; 96372; 99281; 99283; J1170

== ENCOUNTER → 2020-09-26 09:14 | Outpatient (BNVA) | payer MEDICARE, MEDICAID, SELFPAY | PROVIDERS: PCP Nurse Practitioner Family; Visit Provider Anesthesiology | DX: G89.29 Other chronic pain (principal); M51.06 Intervertebral disc disorders with myelopathy, lumbar region; M47.817 Spondylosis without myelopathy or radiculopathy, lumbosacral region; M47.819 Spondylosis without myelopathy or radiculopathy, site unspecified; M17.12 Unilateral primary osteoarthritis, left knee; F17.210 Nicotine dependence, cigarettes, uncomplicated; Z96.652 Presence of left artificial knee joint; Z79.891 Long term (current) use of opiate analgesic; Z71.6 Tobacco abuse counseling | CPT/HCPCS: 99214 ==

== ENCOUNTER 2020-09-29 13:35 | Inpatient (IN) | payer MEDICARE, MEDICAID, SELFPAY ==
[2020-09-29] VITALS (9 sets, daily range): BP systolic 100–127; BP diastolic 60–92; PULSE 89–107; RESP 14–30; TEMP 36.5–38.6; O2SAT 91–98; BMI 43.2
--- NOTE | 2020-09-29 13:41 | ECG_ITS ---
[facility] Test Date: 2020-09-29 Pat Name: Mayra Ascencio Department: Room: Gender: Female Hot Patcher: : 1965 Requested By: Kelly Bates Order Number: [id number] Ashlee MD: Marlee Olmos M.D. Measurements Intervals [place] Rate: 101 P: 102 MN: 169 QRS: 37 QRSD: 97 T: 38 QT: 337 QTc: 437 Interpretive Statements SINUS TACHYCARDIA WITH OCCASIONAL ECTOPIC PREMATURE COMPLEXES LOW QRS VOLTAGE IN PRECORDIAL LEADS [QRS DEFLECTION < 1.0 mV IN CHEST LEADS] Compared to ECG 08/29/2020 09:12:20 Low QRS voltage now present Sinus rhythm no longer present Myocardial infarct finding no longer present Electronically Signed On 09-30-2020 19:39:06 INDUSTRIAL ENGINEERING TECHNICIAN by Marlee Olmos M.D. [id number] etta
--- NOTE | 2020-09-29 13:41 | USCV_ITS ---
Mayra Ascencio Age: 55 Gender: F : 1965 Exam Date: 09/29/2020 14:07 Ordering Phys: Kelly Bates MD Technologist: Bereket Mahoney Exam Location: [facility] Indication: DVT HISTORY: Lower extremity swelling. Lower extremity edema. Lower extremity pain. PROCEDURES: Venous duplex imaging was performed in only the left lower extremity. The following venous structures were evaluated: common femoral vein, profunda vein, proximal portion of the greater saphenous vein, superficial femoral vein, and the popliteal vein. In addition, the posterior tibial veins were evaluated. FINDINGS: Examination was technically limited due to body habitus. No evidence of DVT seen in any vessel visualized at this time. CONCLUSIONS No evidence of left lower extremity DVT. Teto Stone MD (Electronically Signed) Final Date: 29 September 2020 16:36 S
--- NOTE | 2020-09-29 13:41 | XR_ITS ---
WS: [id number] XR chest 1V portable [id number] REASON FOR EXAM: sob FINDINGS: Heart and mediastinum are within normal limits. Compared to the previous examination of 07/03/2020, there is some peribronchial cuffing which may hernandez jemal acute/subacute small airway inflammation. No infiltrate. No effusion. Mild/moderate degenerative changes in the mid and lower thoracic spine and shoulder joints. XR/XR chest 1V portable [id number] IMPRESSION: Possible acute/subacute small airway inflammation.
--- NOTE | 2020-09-29 14:43 | ED_ITS ---
HPI - Extremity Problem General: Chief complaint: Extremity Problem,Nontraumatic Stated complaint: POSS BLOOD CLOT Time Seen by Provider: 09/29/20 13:39 Source: patient and EMS Mode of arrival: EMS Limitations: no limitations History of Present Illness: HPI Narrative: 55-year-old female who had left knee replacement little over a week ago. States she is having increasing pain does have chronic pain. She states she had redness and warmth to the area as well and is worried she may have a blood clot as she has had swelling in her lower leg. She states her pain is a 9 out of 10. Denies any worsening or improving factors. Denies any vomiting or diarrhea. MD Complaint: extremity pain Associated symptoms: Reports fever(s); Deny chest pain or rash Review of Systems Const: Reports: fever(s); Denies: chills, body aches or change in appetite Eyes: Denies: blurry vision or eye discomfort ENMT: Denies: throat pain or dental pain Card: Denies: chest pain Resp: Denies: dyspnea GI: Denies: abdominal pain, nausea, vomiting or diarrhea : Denies: dysuria Musc: Reports: extremity pain and extremity swelling; Denies: neck pain or back pain Skin/Breast: Denies: rash Neuro: Denies: headache(s) Psych: Denies: depression Xavier/Lymph: Denies: easy bruising All/Imm: Denies: urticaria PFSH ED PFSH: Medical History (Updated 09/29/20 @ 18:08 by Kelly Bates MD) Atherosclerotic heart disease of [place] coronary artery with unspecified angina pectoris Chest pain, midsternal Chronic congestive heart failure Chronic left-sided low back pain Chronic obstructive pulmonary disease, unspecified Chronic pain of left knee Congestive heart failure Current every day smoker CVA (cerebral vascular accident) Dyslipidemia Encounter for long-term opiate analgesic use Essential hypertension Fibromyalgia Fibromyalgia, primary Hyperlipidemia, mixed Insomnia Intervertebral disc disorder of lumbar region with myelopathy Low back pain radiating to both legs Lumbosacral spondylosis without myelopathy NSTEMI (non-ST elevated myocardial infarction) Thought to be secondary to plaque rupture. Angiogram July 04 no flow- limiting lesions, or restenosis of previous stent from April 2020 Opioid contract exists Osteoarthritis of spine at multiple levels Type 2 diabetes mellitus with diabetic autonomic (poly)neuropathy Vitamin D deficiency Surgical History History of arthroscopic surgery of elbow BILATERAL History of coronary angiogram Angiogram April 2020 with 90% circumflex lesion, drug-eluting stent placed by Dr. Jerome S/p bilateral carpal tunnel release S/P hysterectomy S/P knee surgery RIGHT S/P lumbar fusion DR. Shreya ZAYAS IN [place], [place] L4-L5, L5-S1 Status post lumbar laminectomy Family History Other CAD (coronary artery disease) Cancer Diabetes Social History Smoking and tobacco status: current every day smoker cigarettes [ Other cigarette details: PER PATIENT REPORT ] Second hand smoke exposure: Yes Smoking risk assessment/counseling performed?: Yes Alcohol intake: former Desire information about alcohol rehabilitation?: No Counseling given: No Desire information about substance/drug rehabilitation?: No Counseling given: No Caregiver/support person: No Lives independently: Yes Household members: family Housing: Manufactured/Mobile home Marital status: service: No Current occupational status: unemployed Pets and animals: Yes History of recent travel: No Current gender identity: Female Physical Exam Const: COMMON NORMALS: no acute distress, patient oriented x3 and healthy appearing HENMT: COMMON NORMALS: normocephalic and atraumatic HEAD & SCALP: normocephalic and atraumatic Eye: COMMON NORMALS: Equal, round and reactive pupils present and EOMs intact bilaterally PUPIL: Yes Equal, round and reactive pupils present Neck/C-Spine: COMMON NORMALS: full ROM and supple Chest: COMMONS NORMALS: normal inspection of the chest and normal palpation of entire chest wall Resp: COMMON NORMALS: normal respiratory effort, No retractions, No use of accessory muscles and clear to auscultation bilaterally AUSCULTATION: clear to auscultation bilaterally Cardio: COMMON NORMALS: regular rate, regular rhythm and No murmurs present (Cardio) RATE: regular rate RHYTHM: regular rhythm GI: COMMON NORMALS: Normal to inspection, nondistended, normoactive bowel sounds present, Soft to palpation, non-tender and no masses PALPATION: Yes Soft to palpation Extremity: NARRATIVE EXTREMITY EXAM: Erythema to left leg with swelling in her knee and down her calf is quite tender with drainage from her incision. Neuro: COMMON NORMALS: patient oriented x3, moves all extremities and no focal motor deficits Psych: COMMON NORMALS: mental status grossly normal, Normal thought process present and cooperative THOUGHT PROCESS: Normal thought process present Skin: COMMON NORMALS: no rashes or lesions noted and no wounds GENERAL SKIN EXAM: no rashes or lesions noted Procedures Joint Aspiration/Injection Joint Asp./Inject. 1: Time Out Performed: Yes Side of body: left Joint Aspirated: knee Ultrasound Guidance: No Skin Prep: Povidone-Iodine1% Local Anesthetic: lidocaine 2% Amount of anesthesia used (mL): 15 Needle Size Used: 18G Fluid Obtained: turbid Total fluid obtained (mL): 15 Patient Tolerated Procedure: well Complications: none Course Vital Signs: Vital signs: Vital Signs Temperature 98.7 F 09/29/20 13:44 Pulse Rate 101 H 09/29/20 14:32 Respiratory Rate 20 H 09/29/20 17:04 Blood Pressure 127/92 09/29/20 14:32 Pulse Oximetry 95 09/29/20 17:04 MDM - Extremity (Nontraumatic) MDM Narrative: Medical decision making narrative: Mayra presents here with septic joint her left knee. We will start IV antibiotics I spoke to orthopedist who is consulted. Also spoke to hospitalist Dr. Rodriguez who is admitting. Patient's lactate level here is normal and her blood pressures been stable with no signs of septic shock. Lab Data: Labs: Lab Results 09/29/20 09/29/20 09/29/20 Range/Units 15:36 15:36 15:36 WBC 31.6 H* (4.0-10.0) 10^3/ uL RBC 3.08 L (4.1-5.3) 10^6/u L Hgb 8.2 L (11.5-15.3) g/dL Hct 27.1 L (37.0-47.0) % MCV 88.0 (81-99) fL MCH 26.6 L (28.0-34.0) pg MCHC 30.3 (30.0-36.0) g/dL RDW 16.1 H (12.1-15.1) % Plt Count 706 H (130-400) 10^3/c mm MPV 9.7 (7.4-10.4) fL Neut % (Auto) 80.3 % Lymph % (Auto) 7.9 % Fergus % (Auto) 7.1 % Eos % (Auto) 0.8 % Baso % (Auto) 0.4 % Neut # (Auto) 25.38 H (1.8-7.7) 10^3/u L Lymph # (Auto) 2.5 (0.8-4.8) 10^3/u L Fergus # (Auto) 2.2 H (0.2-0.9) 10^3/u L Eos # (Auto) 0.3 (0.0-0.8) 10^3/u L Baso # (Auto) 0.1 (0.0-0.1) 10^3/u L Nucleated RBC % (a uto) 0.1 % Nucleated RBCs # 0.0 /100WBC ESR (0-15) mm/hr Sodium 133 L (136-145) mmol/L Potassium 5.1 (3.5-5.1) mmol/L Chloride 97 L (98-107) mmol/L Carbon Dioxide 25 (22-29) mmol/L Anion Gap 16.1 (5-19) BUN 21 H (6-20) mg/dL Creatinine 1.2 H (0.5-0.9) mg/dL GFR Calculation 47.0 L (90-130) mL/min Glucose 215 H (65-115) mg/dL Calculated Osmolal ity 285 (285-295) mOsm/k g Lactate 1.6 (0.5-2.2) mmol/L Calcium 8.6 (8.5-10.5) mg/dL Total Bilirubin 0.4 (0.15-1.2) mg/dL AST 44 H (0-32) U/L ALT 12 (0-33) U/L Alkaline Phosphata se 115 H (35-105) IU/L C-Reactive Protein 414.9 H (0.0-4.9) mg/L NT-Pro-B Natriuret Pep 341 H (0-125) pg/mL Total Protein 6.4 L (6.6-8.7) g/dL Albumin 2.8 L (3.5-5.2) g/dL Globulin 3.6 (1.3-4.6) g/dL Synovial Color (PALE YELLOW) Synovial Appearanc e (CLEAR) Synovial WBC (0-150) /uL Synovial RBC (0-0) 10^3/uL Synovial Mononucle ar 10^3/uL Synov Polynuclear WBCs 10^3/uL Synovial Other Rere ls Synovial Polynucle ar % % Synovial Mononucle ar % % Path Cons w/Slide 09/29/20 09/29/20 Range/Units 15:36 17:22 WBC (4.0-10.0) 10^3/ uL RBC (4.1-5.3) 10^6/u L Hgb (11.5-15.3) g/dL Hct (37.0-47.0) % MCV (81-99) fL MCH (28.0-34.0) pg MCHC (30.0-36.0) g/dL RDW (12.1-15.1) % Plt Count (130-400) 10^3/c mm MPV (7.4-10.4) fL Neut % (Auto) % Lymph % (Auto) % Fergus % (Auto) % Eos % (Auto) % Baso % (Auto) % Neut # (Auto) (1.8-7.7) 10^3/u L Lymph # (Auto) (0.8-4.8) 10^3/u L Fergus # (Auto) (0.2-0.9) 10^3/u L Eos # (Auto) (0.0-0.8) 10^3/u L Baso # (Auto) (0.0-0.1) 10^3/u L Nucleated RBC % (a uto) % Nucleated RBCs # /100WBC ESR > 120 H (0-15) mm/hr Sodium (136-145) mmol/L Potassium (3.5-5.1) mmol/L Chloride (98-107) mmol/L Carbon Dioxide (22-29) mmol/L Anion Gap (5-19) BUN (6-20) mg/dL Creatinine (0.5-0.9) mg/dL GFR Calculation (90-130) mL/min Glucose (65-115) mg/dL Calculated Osmolal ity (285-295) mOsm/k g Lactate (0.5-2.2) mmol/L Calcium (8.5-10.5) mg/dL Total Bilirubin (0.15-1.2) mg/dL AST (0-32) U/L ALT (0-33) U/L Alkaline Phosphata se (35-105) IU/L C-Reactive Protein (0.0-4.9) mg/L NT-Pro-B Natriuret Pep (0-125) pg/mL Total Protein (6.6-8.7) g/dL Albumin (3.5-5.2) g/dL Globulin (1.3-4.6) g/dL Synovial Color Red (PALE YELLOW) Synovial Appearanc e Bloody (CLEAR) Synovial WBC 687945 H (0-150) /uL Synovial RBC 129 H (0-0) 10^3/uL Synovial Mononucle ar 21.743 10^3/uL Synov Polynuclear WBCs 218.553 10^3/uL Synovial Other Rere ls Not Reportable Synovial Polynucle ar % 90.900 % Synovial Mononucle ar % 9.100 % Path Cons w/Slide Yes EKG Data^: EKG 1: Attestation: I personally reviewed and interpreted this EKG as follows: EKG interpretation date: 09/29/20 EKG interpretation time: 14:58 Interpretation: sinus tach hr [address] or t wave abnormalities qrs 97 qtc 395 Discharge Plan Discharge Patient Disposition: Admitted As Inpatient Clinical Impression: Septic arthritis of knee, left Qualifiers: Septic arthritis organism: due to unspecified organism Qualified Code(s): M00.9 - Pyogenic arthritis, unspecified Condition: Stable Coding Level of Care Code ED Machine Packaging Technician for [facility] Fwd Exam Comprehensive
--- NOTE | 2020-09-29 14:51 | XR_ITS ---
WS: [id number] XR knee LT 3V* [id number] REASON FOR EXAM: pain FINDINGS: Total left knee arthroplasty. The components of the prosthesis are properly positioned and aligned. No bony abnormality. XR/XR knee LT 3V* [id number] IMPRESSION: Total left knee arthroplasty without abnormality. No change from 09/18/2020.
--- NOTE | 2020-09-29 15:27 | CT_ITS ---
WS: [id number] CT head wo con* [id number] REASON FOR EXAM: veloz IV CONTRAST ADMINISTERED: Noncontrast. TOTAL EXAM DLP: 860.[address] scans at [facility] use at least one of these dose optimization techniques: automat ed exposure control; mA and/or kV adjustment per patient size (includes targeted exams where dose is matched to clinical indication); or iterative reconstruction. FINDINGS: The bony calvarium is intact. There is no midline shift or other significant mass effect. There are no findings of intracranial hemorrhage. There is no extra-axial fluid collection. Somewhat prominent atrophy in the frontal lobes for age. No focal brain parenchymal abnormality. CT/CT head wo con* [id number] IMPRESSION: No acute abnormality. Prominent atrophy for age. Examination unchanged compared to 12/17/2019
[2020-09-29 16:11] LABS: Basophils # 0.1 10^3/uL (0.0-0.1); Basophils % 0.4 %; Eosinophils # 0.3 10^3/uL (0.0-0.8); Eosinophils % 0.8 %; Hematocrit 27.1 % (37.0-47.0); Hemoglobin 8.2 g/dL (11.5-15.3); Lymphocytes # 2.5 10^3/uL (0.8-4.8); Lymphocytes % 7.9 %; Mean Corpuscular HGB Conc 30.3 g/dL (30.0-36.0); Mean Corpuscular Hemoglobin 26.6 pg (28.0-34.0); Mean Platelet Volume 9.7 fL (7.4-10.4); Monocytes # 2.2 10^3/uL (0.2-0.9); Monocytes % 7.1 %; Neutrophils # 25.38 10^3/uL (1.8-7.7); Neutrophils % 80.3 %; Nucleated Red Blood Cells % 0.1 %; Platelet Count 706 10^3/cmm (130-400); Red Blood Count 3.08 10^6/uL (4.1-5.3); Red Cell Distribution Width 16.1 % (12.1-15.1)
[2020-09-29 16:17] LABS: White Blood Count 31.6 10^3/uL (4.0-10.0)
[2020-09-29 16:23] LABS: Lactate (Lactic Acid level) 1.6 mmol/L (0.5-2.2)
[2020-09-29 16:26] LABS: Alanine Aminotransferase 12 U/L (0-33); Albumin Level 2.8 g/dL (3.5-5.2); Alkaline Phosphatase 115 IU/L (35-105); Anion Gap 16.1 (5-19); Aspartate Amino Transferase 44 U/L (0-32); Blood Urea Nitrogen 21 mg/dL (6-20); Calcium 8.6 mg/dL (8.5-10.5); Carbon Dioxide 25 mmol/L (22-29); Chloride 97 mmol/L (98-107); Globulin 3.6 g/dL (1.3-4.6); Glucose 215 mg/dL (65-115); NT Pro B Type Natriuretic Pept 341 pg/mL (0-125); Osmolality Calculated 285 mOsm/kg (285-295); Potassium 5.1 mmol/L (3.5-5.1); Sodium 133 mmol/L (136-145); Total Bilirubin 0.4 mg/dL (0.15-1.2); Total Protein 6.4 g/dL (6.6-8.7)
[2020-09-29 16:39] LABS: C Reactive Protein 414.9 mg/L (0.0-4.9)
[2020-09-29] MEDS: HYDROmorphone 1 mg/mL INJ 1 mL IVP (17:04)
[2020-09-29] MEDS: sodium chloride 0.9% 1,000 ML 999 ML IV ×2 (17:05→19:05)
[2020-09-29 17:26] LABS: Erythrocyte Sedimentation Rate > 120 mm/hr (0-15)
[2020-09-29] MEDS: aztreonam 2,000 MG in sodium chloride 0.9% (plus) 100 ML 200 MG IV (17:36)
[2020-09-29 17:49] LABS: RBC Synovial Fluid 129 10^3/uL (0-0)
[2020-09-29 18:00] LABS: Color Synovial Fluid RED (PALE YELLOW)
[2020-09-29 18:01] LABS: Appearance Synovial Fluid BLOODY (CLEAR); PATH Referal YES
--- NOTE | 2020-09-29 18:36 | P.HP_ITS ---
Providers/Chief Complaint Admitting Physician: Avila Marie Primary Care Provider: CHARLOTTE Pugh Chief Complaint: POSS BLOOD CLOT History of Present Illness 75-year-old lady status post elective left side TKA done on 09/15, discharged home on 09/16 after an uneventful hospitalization in good postoperative progress returns to the hospital with concern of redness, warmth, increasing pain in the left leg. Pain as high as 9/10. He is concerned also for possible blood clot due to swelling. Reported fever, although in ER she is afebrile, but with sinus tachycardia 101, is noted with leukocytosis 31.6, predominantly neutrophilic, ESR more than 120, CRP 414. Noted sodium 133, creatinine 1.2 with normal baseline. AST 44. Alk phos 115. NT proBNP 341. Albumin 2.8. In ER knee x-ray shows TKA. Lower extremity venous duplex shows no evidence of DVT. Head CT without acute abnormality. Prominent atrophy for age. Chest x-ray with possible acute/subacute small airway inflammation. She denies having fever at home. Has some mild mitten cough, sometimes productive of phlegm. Denies any muscle aches, chills, headache, nausea vomiting or diarrhea. In ER arthrocentesis of the left knee is performed with finding of 240,296 WBCs, 129,000 RBCs. Predominantly polymorphonuclear. Culture has been sent. She was started on aztreonam, vancomycin. Review of Systems Const: Reports: malaise; Denies: fever(s), chills or body aches Eyes: Denies: change in vision or eye redness ENMT: Denies: throat pain, oral sores or ear or mastoid pain Card: Denies: chest pain, edema, pre-syncope or dyspnea on exertion Resp: Denies: dyspnea, productive cough, change in phlegm color or hemoptysis GI: Denies: abdominal pain, nausea, vomiting, diarrhea, constipation, hematochezia or melena : Denies: flank pain, urinary frequency or hematuria Musc: Reports: joint pain, joint swelling and joint redness; Denies: back pain Skin/Breast: Reports: rash (erythema LLE below the knee) and other (L knee wound with drainage at home) Neuro: Denies: headache(s), numbness in extremities, weakness in extremities, dizziness, confusion or seizure-like activity Endo: Denies: polyuria or polydipsia Xavier/Lymph: Denies: easy bleeding or purpura All/Imm: Denies: urticaria, throat swelling or tongue swelling Medications/Allergies Home Medications Medication Instructions Recorded Confirmed Last Taken Type pantoprazole 40 mg tablet,delayed 40 mg PO DAILY@08 11/05/19 09/29/20 09/28/20 History release topiramate 50 mg tablet 50 mg PO BID@,11/05/19 09/29/20 09/28/20 History Ozempic 1 mg SUBCUT Q7D 06/14/20 09/29/20 09/28/20 History atorvastatin 40 mg PO DAILY@06/14/20 09/29/20 09/28/20 History nitroglycerin 0.4 mg sublingual 0.4 mg SUBLINGUAL Q5M PRN #25 tab 08/04/20 09/29/20 Unknown Rx tablet cyclobenzaprine 10 mg tablet 10 mg PO TID PRN 30 Days #90 tab 08/08/20 09/29/20 09/14/20 Rx albuterol sulfate 90 mcg/actuation 2 puff INHALATION QID PRN 30 Days 08/26/20 09/29/20 09/28/20 Rx aerosol inhaler #6.7 gm budesonide-formoterol HFA 160 2 puff INHALATION Q12H #10.2 gm 08/26/20 09/29/20 09/28/20 Rx mcg-4.5 mcg/actuation aerosol inhaler hydromorphone 4 mg tablet 4 mg PO QID 15 Days #60 tab 09/26/20 09/29/20 09/28/20 20:00 Rx Brilinta 90 mg PO BID@09/29/20 09/29/20 09/28/20 History Coreg 6.25 mg PO BID@09/29/20 09/29/20 09/28/20 History Levemir FlexTouch U-100 Insuln 10 unit SUBCUT DAILY@09/29/20 09/29/20 09/28/20 History Lyrica 150 mg PO TID@08,16,09/29/20 09/29/20 09/28/20 History Seroquel 50 mg PO BEDTIME@09/29/20 09/29/2013/20 History Ultram See Rx Instructions .ROUTE 09/29/20 09/29/20 Unknown History .COMPLEX PRN aspirin 81 mg PO DAILY@09/29/20 09/29/20 09/28/20 History duloxetine 60 mg PO DAILY@09/29/20 09/29/20 09/29/20 History furosemide 40 mg PO DAILY@09/29/20 09/29/20 09/28/20 History isosorbide mononitrate 60 mg PO DAILY@09/29/20 09/29/20 09/28/20 History levetiracetam [Keppra] 1,500 mg PO BID@09/29/20 09/29/20 09/28/20 History losartan 50 mg PO DAILY@09/29/20 09/29/20 09/28/20 History metformin 1,000 mg PO BID@09/29/20 09/29/20 09/28/20 History potassium chloride 20 meq PO DAILY@09/29/20 09/29/20 09/28/20 History ranolazine 1,000 mg PO BID@09/29/20 09/29/20 09/28/20 History Allergies Allergy/AdvReac Type Severity Reaction Status Date / Time adhesive Allergy Unknown Verified 09/26/20 10:59 clindamycin Allergy ADR-Itching Verified 09/26/20 10:59 codeine Allergy Unknown Verified 09/26/20 10:59 hydrocodone Allergy Unknown Verified 09/26/20 10:59 latex Allergy ALGY-Swell Verified 09/26/20 10:59 Lip/Tongue/Throat naproxen [From Naprosyn] Allergy Unknown Verified 09/26/20 10:59 nut - unspecified Allergy ALGY-Anaphy Verified 09/26/20 10:59 laxis oxycodone [From Roxicodone] Allergy ADR-Muscle Verified 09/26/20 10:59 Pain Penicillins Allergy Unknown Verified 09/26/20 10:59 sulfamethoxazole Allergy ADR-Migrain Verified 09/26/20 10:59 [From Bactrim] e trimethoprim [From Bactrim] Allergy ADR-Migrain Verified 09/26/20 10:59 e PFSH Acute PFSH: Medical History (Updated 09/29/20 @ 18:53 by Avila Marie MD) Atherosclerotic heart disease of [place] coronary artery with unspecified angina pectoris Chest pain, midsternal Chronic congestive heart failure Chronic left-sided low back pain Chronic obstructive pulmonary disease, unspecified Chronic pain of left knee Congestive heart failure Current every day smoker CVA (cerebral vascular accident) Dyslipidemia Encounter for long-term opiate analgesic use Essential hypertension Fibromyalgia Fibromyalgia, primary Hyperlipidemia, mixed Insomnia Intervertebral disc disorder of lumbar region with myelopathy Low back pain radiating to both legs Lumbosacral spondylosis without myelopathy NSTEMI (non-ST elevated myocardial infarction) Thought to be secondary to plaque rupture. Angiogram July 04 no flow- limiting lesions, or restenosis of previous stent from April 2020 Opioid contract exists Osteoarthritis of spine at multiple levels Type 2 diabetes mellitus with diabetic autonomic (poly)neuropathy Vitamin D deficiency Surgical History History of arthroscopic surgery of elbow BILATERAL History of coronary angiogram Angiogram April 2020 with 90% circumflex lesion, drug-eluting stent placed by Dr. Jerome S/p bilateral carpal tunnel release S/P hysterectomy S/P knee surgery RIGHT S/P lumbar fusion DR. Shreya ZAYAS IN [place], [place] L4-L5, L5-S1 Status post lumbar laminectomy Family History Other CAD (coronary artery disease) Cancer Diabetes Social History Smoking and tobacco status: current every day smoker cigarettes [ Other cigarette details: PER PATIENT REPORT ] Second hand smoke exposure: Yes Smoking risk assessment/counseling performed?: Yes Alcohol intake: former Desire information about alcohol rehabilitation?: No Counseling given: No Desire information about substance/drug rehabilitation?: No Counseling given: No Caregiver/support person: No Lives independently: Yes Household members: family and other Details: son Housing: Manufactured/Mobile home Marital status: Unknown Marital status details: She and son state she is not service: No Current occupational status: unemployed Pets and animals: Yes History of recent travel: No Current gender identity: Female Vitals/I&O/Wt Last Vital Signs Temp 98.7 F 09/29/20 13:44 Pulse 101 H 09/29/20 14:32 Resp 20 H 09/29/20 17:04 BP 127/92 09/29/20 14:32 Pulse Ox 95 09/29/20 17:04 Weight last 48 hrs Weight 117.934 kg Physical Exam Const: COMMON NORMALS: no acute distress GENERAL APPEARANCE: cooperative NUTRITIONAL APPEARANCE: obese ORIENTATION/CONSCIOUSNESS: Yes oriented to person, Yes oriented to place and Yes confused (Mildly confused, she provides mostly her own history. Unable to recall year); not oriented to time HENMT: COMMON NORMALS: oropharynx normal Neck/C-Spine: COMMON NORMALS: no JVD Resp: COMMON NORMALS: normal respiratory effort and clear to auscultation bilaterally AUSCULTATION: clear to auscultation bilaterally Cardio: COMMON NORMALS: no JVD, regular rhythm, S1 normal heart sound present, S2 normal heart sound present and No murmurs present (Cardio) RATE: tachycardic RHYTHM: regular rhythm HEART SOUNDS: S1 normal heart sound present and S2 normal heart sound present GI: COMMON NORMALS: Normal to inspection, nondistended, normoactive bowel sounds present, Soft to palpation and non-tender PALPATION: Yes Soft to palpation Extremity: GENERAL: Yes edema (2+) OTHER: Swelling, redness, warmth L knee. Erythema below the knee Neuro: COMMON NORMALS: patient oriented x3 and moves all extremities Skin: COMMON NORMALS: no rashes or lesions noted GENERAL SKIN EXAM: no rashes or lesions noted Data : 09/29/20 15:36 09/29/20 15:36 Micro: Microbiology 09/29/20 15:36 Blood Culture - Preliminary Blood SPECIMEN COLLECTED A&P Assessment and plan (1) Septic arthritis of knee, left: Sepsis with leukocytosis 31.6, tachycardia 101, with swelling, warmth, redness of the left knee, with dry image at home. With 240,296 WBCs, with polymorphonuclear predominance, also 129,000 RBCs. Culture requested from arthrocentesis from ER. Also noted cellulitis of left lower extremity. Started on vancomycin, aztreonam. Blood culture requested. Lactic acid is 1.6. Orthopedic assessment for type and extent of surgeical intervention. We will keep her n.p.o. after breakfast per discussion w orthopedics. Continue aspirin, plavix due to cardiac stent in April. Hold off on some of her blood pressure medications given blood pressures currently at goal. Will resume depending on blood pressures tomorrow. Chest x-ray with possible acute/subacute small airway inflammation. She reports some intermittent cough, sometimes productive of sputum. Does have COPD. Denies that cough is much worse than usual. She is on baseline oxygen, of which she states at home uses 2 L. Mild COPD exacerbation is possible. Will check rapid COVID-19 antigen. Discussed with her son. Status: Acute Qualifiers: Septic arthritis organism: due to unspecified organism Qualified Code(s): M00.9 - Pyogenic arthritis, unspecified (2) Status post left knee replacement: Status: Acute (3) QIANA (acute kidney injury): Mild acute kidney injury, creatinine 1.2. Hold losartan for now. Hold Lasix. Received fluid challenge in ER. Monitor urine output. Renal function. Avoid NSAIDs. Status: Acute (4) Current every day smoker: Encourage cessation. Status: Chronic (5) Coronary artery disease due to type 2 diabetes mellitus: Stenting in April, subsequently in June coronary angiography which showed some multifocal coronary disease, not requiring intervention. Continue aspirin, Plavix until at least October/November if possible. Status: Acute (6) Chronic obstructive pulmonary disease, unspecified: Reports chronically on oxygen of 2 L. Currently appears at baseline. Does report some mild intermittent cough, intermittently productive. Some small airway inflammation noted on chest x-ray. Possibly mild COPD exacerbation. For now avoid steroids. Continue inhalers. Collect sputum culture. Rapid COVID-19 antigen test. Status: Acute Qualifiers: COPD type: unspecified COPD Qualified Code(s): J44.9 - Chronic obstructive pulmonary disease, unspecified (7) Essential hypertension: Monitor BPs Status: Chronic (8) Anemia: Hb 8.2. No outward bleeding. On ASA, Brillinta. Continue for now. Will type and screen. Status: Acute (9) Diabetes type 2, uncontrolled: Continue long-acting insulin. Sliding scale. Status: Acute Qualifiers: Glycemic state: with hyperglycemia Qualified Code(s): E11.65 - Type 2 diabetes mellitus with hyperglycemia Additional A&P Information Alk phos elevation: 115, less than prior, possibly related to recent knee surgery. Check GGT Acute on chronic leukocytosis Thrombocytosis Mild hyponatremia Attestations Medical Necessity Statement*: Admission of over 2 midnights is going to be needed for assessment of management of sepsis, septic arthritis, cellulitis, with acute kidney injury, with underlying poorly controlled diabetes, coronary disease, COPD, chronic hypoxia, and other chronic comorbidities. Coding Level of Care Code Acute [employer] for g Fwd Diagnoses Septic arthritis of knee, left M00.9 Septic arthritis organism: due to unspecified organism Status post left knee replacement Z96.652 QIANA (acute kidney injury) N17.9 Current every day smoker F17.200 Coronary artery disease due to type 2 diabetes mellitus E11.59; I25.10 Chronic obstructive pulmonary disease, unspecified J44.9 COPD type: unspecified COPD Essential hypertension I10 Anemia D64.9 Diabetes type 2, uncontrolled E11.65 Glycemic state: with hyperglycemia
[2020-09-29] MEDS: vancomycin 1,000 MG in sodium chloride 0.9% 250 ML 250 MG IV (19:05)
[2020-09-29 20:27] LABS: Glucose Point of Care 194 mg/dL (70-110)
[2020-09-29] MEDS: levETIRAcetam 500 mg Tablet 1500 MG PO (20:36)
[2020-09-29] MEDS: topiramate 25 mg Tablet PO (20:36)
[2020-09-29] MEDS: atorvastatin 40 mg Tablet PO (20:37)
[2020-09-29] MEDS: quetiapine 25 mg Tablet 50 MG PO (20:37)
[2020-09-29] MEDS: ranolazine (12HR) 500 mg Tablet 1000 MG PO (20:37)
[2020-09-29] MEDS: ticagrelor 90 mg Tablet PO (20:37)
[2020-09-29 22:53] LABS: Gamma Glutamyl Transferase 18 U/L (5-36)
[2020-09-29 23:13] LABS: Glucose Urine UA Norm (Normal); Ketones Urine Negative (Negative); Nitrate Urine Positive (Negative); Protein Urine Neg (Negative); Specific Gravity, Urine 1.025 (1.005-1.030); Urine Appearance Cloudy (CLEAR); Urine Color Dark Yellow (Yellow); pH Urine 5 (5-7)
[2020-09-29 23:14] LABS: Add Urine Microscopic? YES; Bilirubin Urine Neg (Negative); Blood Urine 2+ (Negative); Leukocyte Esterase Urine Negative (Negative); Urobilinogen Urine Norm (Negative)
[2020-09-29 23:16] LABS: Add Urine Culture? No; Bacteria Urine 4+ /hpf; RBC Urine 0-4 /hpf (0-2); Squamous Epithelial Cell Urine 15-25 /hpf (0-5); WBC Urine 0-4 /hpf (0-5)
[2020-09-30] VITALS (17 sets, daily range): BP systolic 100–170; BP diastolic 59–109; PULSE 89–97; RESP 16–22; TEMP 36.3–37.9; O2SAT 92–96
[2020-09-30 00:11] LABS: SARS Covid-2 Antigen Negative (Negative)
[2020-09-30] MEDS: LORazepam 2 mg/mL INJ 1 mL 1 MG IVP (00:26)
[2020-09-30] MEDS: acetaminophen 325 mg Tablet 650 MG PO (01:05)
[2020-09-30] MEDS: aztreonam 2,000 MG in sodium chloride 0.9% (plus) 100 ML 200 MG IV ×2 (01:05→13:00)
[2020-09-30 05:02] LABS: Basophils # 0.1 10^3/uL (0.0-0.1); Basophils % 0.4 %; Eosinophils # 0.4 10^3/uL (0.0-0.8); Eosinophils % 1.8 %; Lymphocytes # 2.3 10^3/uL (0.8-4.8); Lymphocytes % 10.6 %; Mean Corpuscular HGB Conc 30.8 g/dL (30.0-36.0); Mean Corpuscular Hemoglobin 26.4 pg (28.0-34.0); Mean Corpuscular Volume 85.8 fL (81-99); Mean Platelet Volume 9.5 fL (7.4-10.4); Monocytes # 1.9 10^3/uL (0.2-0.9); Monocytes % 8.8 %; Neutrophils # 16.55 10^3/uL (1.8-7.7); Neutrophils % 76.1 %; Nucleated Red Blood Cells % 0 %; Platelet Count 693 10^3/cmm (130-400); Red Blood Count 3.03 10^6/uL (4.1-5.3); White Blood Count 21.7 10^3/uL (4.0-10.0)
[2020-09-30 05:27] LABS: Alanine Aminotransferase 20 U/L (0-33); Albumin Level 2.5 g/dL (3.5-5.2); Alkaline Phosphatase 95 IU/L (35-105); Anion Gap 15.7 (5-19); Aspartate Amino Transferase 84 U/L (0-32); Blood Urea Nitrogen 15 mg/dL (6-20); Calcium 8.4 mg/dL (8.5-10.5); Carbon Dioxide 23 mmol/L (22-29); Chloride 100 mmol/L (98-107); Globulin 3.5 g/dL (1.3-4.6); Glomerular Filtration Rate 87.5 mL/min (90-130); Glucose 155 mg/dL (65-115); Osmolality Calculated 284 mOsm/kg (285-295); Potassium 3.7 mmol/L (3.5-5.1); Sodium 135 mmol/L (136-145); Total Bilirubin 0.4 mg/dL (0.15-1.2)
[2020-09-30] MEDS: vancomycin 1,250 MG/250 ML PIGGYBACK 250 MG IV (05:35)
[2020-09-30 06:41] LABS: Glucose Point of Care 177 mg/dL (70-110)
--- NOTE | 2020-09-30 07:47 | P.CONIM_ITS ---
Providers/Reason For Consult Consulting Physican/Specialty*: Vj Verma MD orthopedic surgeon Reason for Consult*: Infected left total knee arthroplasty Attending Physician: Avila Marie Primary Care Provider: CHARLOTTE Pugh History of Present Illness History of Present Illness Mayra Ascencio is a 55 year old female with a 6 significant medical comorbidities including diabetes mellitus, obesity, and recent cardiac stent placement. She had severe pain in her left knee that failed medications prescribed in the pain medicine clinic as well as corticosteroid injections. Her pain was severe and not limiting and she was admitted on 09/15/2021 for elective left total knee arthroplasty. She was discharged after unremarkable hospitalization. The patient is not able to really give any history. She was brought by family to the hospital yesterday saying that he could not manage her. She described increasing pain in the left leg and an inability to bear weight. He had subjective complaints of a fever but did not have an increased temperature in the hospital until last night were temperature reached 101.4. The knee was not tapped in the emergency room and she has been admitted to medicine service and been begun on IV antibiotics. Meds/Allergies Home Medications and Allergies Home Medications Medication Instructions Recorded Confirmed Last Taken Type pantoprazole 40 mg tablet,delayed 40 mg PO DAILY@08 11/05/19 09/29/20 09/28/20 History release topiramate 50 mg tablet 50 mg PO BID@,11/05/19 09/29/20 09/28/20 History Ozempic 1 mg SUBCUT Q7D 06/14/20 09/29/20 09/28/20 History atorvastatin 40 mg PO DAILY@06/14/20 09/29/20 09/28/20 History nitroglycerin 0.4 mg sublingual 0.4 mg SUBLINGUAL Q5M PRN #25 tab 08/04/20 09/29/20 Unknown Rx tablet cyclobenzaprine 10 mg tablet 10 mg PO TID PRN 30 Days #90 tab 08/08/20 09/29/20 09/14/20 Rx albuterol sulfate 90 mcg/actuation 2 puff INHALATION QID PRN 30 Days 08/26/20 09/29/20 09/28/20 Rx aerosol inhaler #6.7 gm budesonide-formoterol HFA 160 2 puff INHALATION Q12H #10.2 gm 11/10/20 12/14/20 12/13/20 Rx mcg-4.5 mcg/actuation aerosol inhaler hydromorphone 4 mg tablet 4 mg PO QID 15 Days #60 tab 09/26/20 09/29/20 09/28/20 20:00 Rx Brilinta 90 mg PO BID@,09/29/20 09/29/20 09/28/20 History Coreg 6.25 mg PO BID@09/29/20 09/29/20 09/28/20 History Levemir FlexTouch U-100 Insuln 10 unit SUBCUT DAILY@09/29/20 09/29/20 09/28/20 History Lyrica 150 mg PO TID@,,09/29/20 09/29/20 09/28/20 History Seroquel 50 mg PO BEDTIME@09/29/20 09/29/20 09/28/20 History Ultram See Rx Instructions .ROUTE 09/29/20 09/29/20 Unknown History .COMPLEX PRN aspirin 81 mg PO DAILY@09/29/20 09/29/20 09/28/20 History duloxetine 60 mg PO DAILY@09/29/20 09/29/20 09/29/20 History furosemide 40 mg PO DAILY@09/29/20 09/29/20 09/28/20 History isosorbide mononitrate 60 mg PO DAILY@09/29/20 09/29/20 09/28/20 History levetiracetam [Keppra] 1,500 mg PO BID@09/29/20 09/29/20 09/28/20 History losartan 50 mg PO DAILY@09/29/20 09/29/20 09/28/20 History metformin 1,000 mg PO BID@09/29/20 09/29/20 09/28/20 History potassium chloride 20 meq PO DAILY@09/29/20 09/29/20 09/28/20 History ranolazine 1,000 mg PO BID@09/29/20 09/29/20 09/28/20 History Allergies Allergy/AdvReac Type Severity Reaction Status Date / Time adhesive Allergy Unknown Verified 09/26/20 10:59 clindamycin Allergy ADR-Itching Verified 09/26/20 10:59 codeine Allergy Unknown Verified 09/26/20 10:59 hydrocodone Allergy Unknown Verified 09/26/20 10:59 latex Allergy ALGY-Swell Verified 09/26/20 10:59 Lip/Tongue/Throat naproxen [From Naprosyn] Allergy Unknown Verified 09/26/20 10:59 nut - unspecified Allergy ALGY-Anaphy Verified 09/26/20 10:59 laxis oxycodone [From Roxicodone] Allergy ADR-Muscle Verified 09/26/20 10:59 Pain Penicillins Allergy Unknown Verified 09/26/20 10:59 sulfamethoxazole Allergy ADR-Migrain Verified 09/26/20 10:59 [From Bactrim] e trimethoprim [From Bactrim] Allergy ADR-Migrain Verified 09/26/20 10:59 e Current Medications Current Medications Generic Name Dose Route Start Last Admin Trade Name Freq PRN Reason Stop Dose Admin Acetaminophen 650 mg 09/29/20 19:25 09/30/20 01:05 Acetaminophen 325 Mg Tablet PO 650 mg Q6H PRN Administration Mild/Mod Pain Or Temp >/= 101 Atorvastatin Calcium 40 mg 09/29/20 21:00 09/29/20 20:37 Atorvastatin 40 Mg Tablet PO 40 mg DAILY@21 YUSUF Administration Hydromorphone HCl 4 mg 09/29/20 21:00 09/29/20 20:35 Hydromorphone 4 Mg Tablet PO 4 mg QID YUSUF Administration Aztreonam 2,000 mg/ Sodium 100 mls @ 200 mls/hr 09/30/20 01:00 09/30/20 01:05 Chloride IV 200 mls/hr Q8H YUSUF Administration Protocol Vancomycin/PEG/NADA/Lysine/Water 1,250 mg in 250 mls @ 250 mls/hr 09/30/20 06:00 09/30/20 05:35 Vancocin IV 250 mls/hr Q12H YUSUF Administration Insulin Aspart 0 unit 09/29/20 21:00 09/29/20 20:37 Insulin Aspart 100 Unit/1 Ml SUBCUT 4 unit WM&BEDTIME YUSUF Administration Protocol Levetiracetam 1,500 mg 09/29/20 21:00 09/29/20 20:36 Levetiracetam 500 Mg Tablet PO 1,500 mg BID@08, YUSUF Administration Quetiapine Fumarate 50 mg 09/29/20 21:00 09/29/20 20:37 Quetiapine 25 Mg Tablet PO 50 mg BEDTIME@21 YUSUF Administration Ranolazine 1,000 mg 09/29/20 21:00 09/29/20 20:37 Ranolazine (12hr) 500 Mg Tablet PO 1,000 mg BID@08, YUSUF Administration Fluticasone/Salmeterol 1 puff 09/29/20 20:00 09/29/20 20:29 Fluticasone-Salmeterol 500-50 Diskus INHALATION 1 puff Q12H YUSUF Administration Ticagrelor 90 mg 09/29/20 21:00 09/29/20 20:37 Ticagrelor 90 Mg Tablet PO 90 mg BID@, YUSUF Administration Topiramate 25 mg 09/29/20 21:00 09/29/20 20:36 Topiramate 25 Mg Tablet PO 25 mg BID@08, YUSUF Administration PFSH Acute PFSH: Medical History (Updated 09/29/20 @ 18:53 by Avila Marie MD) Atherosclerotic heart disease of [place] coronary artery with unspecified angina pectoris Chest pain, midsternal Chronic congestive heart failure Chronic left-sided low back pain Chronic obstructive pulmonary disease, unspecified Chronic pain of left knee Congestive heart failure Current every day smoker CVA (cerebral vascular accident) Dyslipidemia Encounter for long-term opiate analgesic use Essential hypertension Fibromyalgia Fibromyalgia, primary Hyperlipidemia, mixed Insomnia Intervertebral disc disorder of lumbar region with myelopathy Low back pain radiating to both legs Lumbosacral spondylosis without myelopathy NSTEMI (non-ST elevated myocardial infarction) Thought to be secondary to plaque rupture. Angiogram July 04 no flow- limiting lesions, or restenosis of previous stent from April 2020 Opioid contract exists Osteoarthritis of spine at multiple levels Type 2 diabetes mellitus with diabetic autonomic (poly)neuropathy Vitamin D deficiency Surgical History History of arthroscopic surgery of elbow BILATERAL History of coronary angiogram Angiogram April 2020 with 90% circumflex lesion, drug-eluting stent placed by Dr. Jerome S/p bilateral carpal tunnel release S/P hysterectomy S/P knee surgery RIGHT S/P lumbar fusion DR. Shreya ZAYAS IN [place], [place] L4-L5, L5-S1 Status post lumbar laminectomy Family History Other CAD (coronary artery disease) Cancer Diabetes Social History Smoking and tobacco status: current every day smoker cigarettes [ Other cigarette details: PER PATIENT REPORT ] Second hand smoke exposure: Yes Smoking risk assessment/counseling performed?: Yes Alcohol intake: former Desire information about alcohol rehabilitation?: No Counseling given: No Desire information about substance/drug rehabilitation?: No Counseling given: No Caregiver/support person: No Lives independently: Yes Household members: family and other Details: son Housing: Manufactured/Mobile home Marital status: Unknown Marital status details: She and son state she is not service: No Current occupational status: unemployed Pets and animals: Yes History of recent travel: No Current gender identity: Female Vitals/I&O/Wt Last Vital Signs Temp 98.0 F 09/30/20 04:28 Pulse 97 09/30/20 04:28 Resp 20 H 09/30/20 04:28 BP 100/60 09/30/20 04:28 Pulse Ox 94 09/30/20 04:28 09/29/20 09/30/20 09/30/20 22:59 06:59 14:59 Output Total 750 / 750 1400 / 2150 Balance -750 / -750 -1400 / -2150 Weight last 48 hrs Weight 251 lb Weight 260 lb Physical Exam Narrative: EXAM NARRATIVE: Ms. Ascencio is supine in bed. She is oriented to her name and the year but she does not know the month or where she currently is. Her left knee reveals some staining along her dressing but no obvious drainage. There is a small amount of dehiscence over the central patella. She holds the knee flexed at 40 degrees and refuses to move it. There is not a great deal of erythema over the knee however there is some extending into her calf. She has a palpable left dorsalis pedis pulse. She will flex and send her toes and her ankle. Urinary Catheter Management^: [place]: Cath Placed During This Visit: yes Reason for Continuing Indwelling Catheter: Required Immobilization for Trauma or Surgery or Anesthesia Urinary Catheter Date of Insertion: 09/30/20 Urinary Catheter Time of Insertion: 00:30 Data Micro: Micro: Microbiology 09/29/20 21:07 Blood Culture - Pr eliminary Blood SPECIMEN COLUMBA WILMER 09/29/20 17:22 Gram Stain - Final Synovial Fluid 09/29/20 15:36 Blood Culture - Pr eliminary Blood SPECIMEN ARABELLA GUILLEN Imaging^: Xray Ortho: My impression: Radiographs of the left knee are reviewed dated 09/29/2020. She has press-fit total knee arthroplasty components in excellent position. A&P Assessment and plan (1) Status post left knee replacement: Patient is elevated temperature, white blood cell count of 31.6, elevated sed rate at 120 and C-reactive protein at 414.9 are all strongly suggestive of infection. The cell count of the knee aspirate was elevated at 240,000 white blood cells suggesting significant inflammation in the joint. I would suspect this represents a deep infection. Options including salvage of the components certainly exist. I think hygiene and blood control issues are a real problem. I am not certain that this is a social and medical situation that makes salvage of the knee components a reasonable option. I think the best option would be to proceed with a removal of our current knee components and placement of an antibiotic spacer. I will get the Depuy knee components in the hospital and we will plan on revision tomorrow. Hopefully by then we will have some preliminary culture data specifically guide our antibiotic cement. Status: Acute Coding Level of Care Code Acute Ox[employer] Operator for Subhashjean Alcazar Diagnoses Status post left knee replacement Z96.652
[2020-09-30] MEDS: ranolazine (12HR) 500 mg Tablet 1000 MG PO (08:59)
[2020-09-30] MEDS: duloxetine 60 mg Capsule PO (09:00)
[2020-09-30] MEDS: topiramate 25 mg Tablet PO (09:00)
[2020-09-30] MEDS: ticagrelor 90 mg Tablet PO (09:00)
[2020-09-30] MEDS: aspirin 81 mg Chew Tablet PO (09:01)
[2020-09-30] MEDS: pantoprazole DR 40 mg Tablet PO (09:01)
[2020-09-30] MEDS: levETIRAcetam 500 mg Tablet 1500 MG PO (09:01)
--- NOTE | 2020-09-30 09:10 | PC.CHAP ---
Pastoral Care Encounter/Spiritual Assessment Type of Contact [] Declined rfp writer visit [] Patient/Family/Request visit [] Outpatient visit [] Follow-up visit [] Physician referral [] Code/Alert [] Routine visit [] Staff referral [] Actively dying [x] Patient sleeping [] Family support [] [] Out of room [] Palliative care [] [] Receiving care in room [] Pre-surgical visit [] Trauma [] Long length of stay [] ICU visit [] Other: Relational/Emotional Strength [] Patient feels connected with others/family/visitors/staff [] Distress [] Loneliness/isolation [] Abandonment Spirituality of Patient [] Person of Mary [] Attends Faith of their Mary [] Believes in Prayer [] Reads Bible or Hoahaoism materials [] There are Spiritual issues to be addressed Service Manager Interventions [] Prayer [] Active listening [] Non-anxious presence [] Spiritual/emotional support [] Crisis/trauma care [] Spiritual counseling [] Bereavement support [] Provided bereavement packet [] Provided Bible/devotional materials [] Provided toy/stuffed animal, coloring book to patient or family member [] Provided Communion [] Anointing/[place] [] Salvation [] Completed spiritual assessment [] Other: Impact on Illness or Injury [] Angry [] Fearful [] Anxious [] Often cries [] Exhaustion [] Unable to work [] Unable to attend christianity [] Unable to walk/stand [] Unable to read [] Unable to drive [] Unable to eat/drink [] Unable to sleep [] Unable to be with family [] Patient intubated [] Other: Summary Time spent with patient
--- NOTE | 2020-09-30 11:10 | P.PN_ITS ---
Subjective Subjective: Interval history: She says she is doing all right, the left leg is still sore. She is doing a bit better, and says she realizes that yesterday she may have been a little bit out of it . Asks which hospital she is in. Vitals/I&O/Wt Last Vital Signs Temp 97.4 F L 09/30/20 08:00 Pulse 93 09/30/20 08:00 Resp 18 09/30/20 08:00 BP 125/69 09/30/20 08:00 Pulse Ox 95 09/30/20 08:00 09/29/20 09/30/20 09/30/20 22:59 06:59 14:59 Output Total 750 / 750 1400 / 2150 Balance -750 / -750 -1400 / -2150 Weight last 48 hrs Weight 113.852 kg Weight 117.934 kg Physical Exam Const: COMMON NORMALS: no acute distress and patient oriented x3 GENERAL APPEARANCE: cooperative NUTRITIONAL APPEARANCE: obese ORIENTATION/CONSCIOUSNESS: Yes oriented to person, Yes oriented to place and Yes confused (Mildly confused, she provides mostly her own history. Unable to recall year); not oriented to time HENMT: COMMON NORMALS: oropharynx normal Neck/C-Spine: COMMON NORMALS: no JVD Resp: COMMON NORMALS: normal respiratory effort and clear to auscultation bilaterally AUSCULTATION: clear to auscultation bilaterally Cardio: COMMON NORMALS: no JVD, regular rhythm, S1 normal heart sound present, S2 normal heart sound present and No murmurs present (Cardio) RATE: tachycardic RHYTHM: regular rhythm HEART SOUNDS: S1 normal heart sound pr esent and S2 normal heart sound present GI: COMMON NORMALS: Normal to inspection, nondistended, normoactive bowel sounds present, Soft to palpation and non-tender PALPATION: Yes Soft to palpation Extremity: GENERAL: Yes edema (2+) OTHER: Swelling, redness, warmth L knee. Erythema at wound, and below the knee. Small amount of purulence at mid-wound. Neuro: COMMON NORMALS: patient oriented x3 and moves all extremities SENSORIUM/ORIENTATION: Yes oriented to person, Yes oriented to place and No oriented to time Skin: COMMON NORMALS: no rashes or lesions noted GENERAL SKIN EXAM: no rashes or lesions noted Urinary Catheter Management^: [place]: Cath Placed During This Visit: yes Reason for Continuing Indwelling Catheter: Required Immobilization for Trauma or Surgery or Anesthesia Urinary Catheter Date of Insertion: 09/30/20 Urinary Catheter Time of Insertion: 00:30 Data : 09/30/20 04:28 09/30/20 04:28 Micro: Microbiology 09/29/20 21:07 Blood Culture - Preliminary Blood SPECIMEN COLLECTED 09/29/20 17:22 Gram Stain - Final Synovial Fluid 09/29/20 15:36 Blood Culture - Preliminary Blood SPECIMEN COLLECTED A&P Assessment and plan (1) Septic arthritis of knee, left: Orthopedic plan reviewed. Plan for hardware explantation, antibiotic spacer later today. Discussed with her sister. Otherwise follow culture. Continue to biotics. With sepsis, can encephalopathy related to infection on admission. Sepsis improving. Encephalopathy improved. Status: Acute Qualifiers: Septic arthritis organism: due to unspecified organism Qualified Code(s): M00.9 - Pyogenic arthritis, unspecified (2) Status post left knee replacement: Status: Acute (3) QIANA (acute kidney injury): Resolved. Hold losartan for now. Hold Lasix. Received fluid challenge in ER. Monitor urine output. Renal function. Avoid NSAIDs. Status: Acute (4) Current every day smoker: Encourage cessation. Status: Chronic (5) Coronary artery disease due to type 2 diabetes mellitus: Stenting in April, subsequently in June coronary angiography which showed some multifocal coronary disease, not requiring intervention. Continue aspirin, Plavix until at least if possible. Denies chest pain or pressure. Status: Acute (6) Chronic obstructive pulmonary disease, unspecified: Reports chronically on oxygen of 2 L. Currently appears at baseline. Does report some mild intermittent cough, intermittently productive. Some small airway inflammation noted on chest x-ray. Possibly mild COPD exacerbation. For now avoid steroids. Continue inhalers. Collect sputum culture. Rapid COVID-19 antigen test. Status: Acute Qualifiers: COPD type: unspecified COPD Qualified Code(s): J44.9 - Chronic obstructive pulmonary disease, unspecified (7) Essential hypertension: Monitor BPs Status: Chronic (8) Anemia: Hb 8.0. No outward bleeding. On ASA, Brillinta. Continue for now. Will type and screen. Check hemoccult. Status: Acute (9) Diabetes type 2, uncontrolled: Continue long-acting insulin. Sliding scale. Status: Acute Qualifiers: Glycemic state: with hyperglycemia Qualified Code(s): E11.65 - Type 2 diabetes mellitus with hyperglycemia Additional A&P Information Alk phos elevation:possibly related to recent knee surgery. Normal GGT Acute on chronic leukocytosis Thrombocytosis Mild hyponatremia Attestations 2 Medical Necessity Statement*: Continue admission for assessment and management of septic arthritis. 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
[2020-09-30 12:37] LABS: Glucose Point of Care 228 mg/dL (70-110)
[2020-09-30] MEDS: albuterol 8 gm MDI 2 PUFF INHALATION (13:25)
[2020-09-30] MEDS: TRAMadol 50 mg Tablet PO (15:16)
--- NOTE | 2020-09-30 17:25 | PC.NURSE ---
1725 PT TAKEN TO OR FOR SURGERY
--- NOTE | 2020-09-30 18:00 | ANES.PREANE2 ---
Pre-Anesthetic Assessment Pre-Anesthetic Assessment: Height/Weight: Height 1.65 m Weight 113.852 kg Temp Pulse Resp BP Pulse Ox 98.2 F 92 18 117/74 92 09/30/20 13:50 09/30/20 13:50 09/30/20 13:50 09/30/20 13:50 09/30/20 13:50 Preop Diagnosis: Osteoarthritis left knee Proposed Procedure: Operation Date: 09/30/20 15:10 Proposed Procedures p Hardware Removal Knee(Left) - Vj Verma MD Social: Social History: Tobacco and No alcohol Exam: Pre-Anes Outpt Exam: alert, oriented x 3 and regular rate & rhythm Additional Exam Findings (including area of procedure): Late exp coarse rales with post tussive clearing Airway: Submandibular: WNL Cervical ROM: WNL MP: 2 Dentition: False Pulmonary: Pulmonary: COPD CV/HEM: CV/HEM: CAD and HTN : : None reported Hepatic: Hepatic: None reported GI: GI: GERD Metabolic: Metabolic: DM, Hyperlipidemia and Morbid obesity Musc/skel: Musc/skel: None reported Neuropsych: Neuropsych: Bipolar, CVA and Neuropathy Anesthetic Plan: ASA status: 4E Anesthesia: General Risk of > 500 ml blood loss (7ml/kg in children): Yes, adequate IV access and fluids planned Meds/Allergies Current Medications: Current Medications Generic Name Dose Route Start Last Admin Trade Name Freq PRN Reason Stop Dose Admin Acetaminophen 650 mg 09/29/20 19:25 09/30/20 01:05 Acetaminophen 32 5 Mg Tablet PO 650 mg Q6H PRN Administration Mild/Mod Pain Or Temp >/= 101 Albuterol Sulfate 2 puff 09/29/20 19:25 09/30/20 13:25 Albuterol 8 Gm M di INHALATION 2 puff QID PRN Administration shortness of zuri th or wheezing Aspirin 81 mg 09/30/20 08:00 09/30/20 09:01 Aspirin 81 Mg Ch ew Tablet PO 81 mg DAILY@08 YUSUF Administration Atorvastatin Calci um 40 mg 09/29/20 21:00 09/29/20 20:37 Atorvastatin 40 Mg Tablet PO 40 mg DAILY@21 YUSUF Administration Duloxetine HCl 60 mg 09/30/20 08:00 09/30/20 09:00 Duloxetine 60 Mg Capsule PO 60 mg DAILY@08 YUSUF Administration Hydromorphone HCl 4 mg 09/29/20 21:00 09/30/20 17:24 Hydromorphone 4 Mg Tablet PO 4 mg QID YUSUF Administration Aztreonam 2,000 mg / Sodium 100 mls @ 200 mls /hr 09/30/20 01:00 09/30/20 13:00 Chloride IV 200 mls/hr Q8H YUSUF Administration Protocol Vancomycin/PEG/NAD A/Lysine/Water 1,250 mg in 250 m ls @ 250 mls/hr 09/30/20 06:00 09/30/20 05:35 Vancocin IV 250 mls/hr Q12H YUSUF Administration Insulin Aspart 0 unit 09/29/20 21:00 09/30/20 12:59 Insulin Aspart 1 00 Unit/1 Ml SUBCUT 6 unit WM&BEDTIME YUSUF Administration Protocol Insulin Detemir 10 unit 09/30/20 08:00 09/30/20 10:01 Insulin Detemir 100 Units/1 Ml SUBCUT 10 unit DAILY@08 YUSUF Administration Levetiracetam 1,500 mg 09/29/20 21:00 09/30/20 09:01 Levetiracetam 50 0 Mg Tablet PO 1,500 mg BID@ YUSUF Administration Pantoprazole Sodiu m 40 mg 09/30/20 08:00 09/30/20 09:[address] 40 Mg Tablet PO 40 mg DAILY@08 YUSUF Administration Quetiapine Fumarat e 50 mg 09/29/20 21:00 09/29/20 20:37 Quetiapine 25 Mg Tablet PO 50 mg BEDTIME@ YUSUF Administration Ranolazine 1,000 mg 09/29/20 21:00 09/30/20 08:59 Ranolazine (12hr ) 500 Mg Tablet PO 1,000 mg BID@ YUSUF Administration Fluticasone/Salmet odette 1 puff 09/29/20 20:00 09/30/20 13:25 Fluticasone-Salm eterol 500-50 Disk us INHALATION Not Given Q12H [facility]–1983 Ticagrelor 90 mg 09/29/20 21:00 09/30/20 09:00 Ticagrelor 90 Mg Tablet PO 90 mg BID@ YUSUF Administration Topiramate 25 mg 09/29/20 21:00 09/30/20 09:00 Topiramate 25 Mg Tablet PO 25 mg BID@08,21 YUSUF Administration Tramadol HCl 50 mg 09/29/20 19:25 09/30/20 15:16 Tramadol 50 Mg T ablet PO 50 mg Q6H PRN Administration pain PFSH Anesthesia PFSH: Medical History (Updated 09/29/20 @ 18:53 by Avila Marie MD) Atherosclerotic heart disease of [place] coronary artery with unspecified angina pectoris Chest pain, midsternal Chronic congestive heart failure Chronic left-sided low back pain Chronic obstructive pulmonary disease, unspecified Chronic pain of left knee Congestive heart failure Current every day smoker CVA (cerebral vascular accident) Dyslipidemia Encounter for long-term opiate analgesic use Essential hypertension Fibromyalgia Fibromyalgia, primary Hyperlipidemia, mixed Insomnia Intervertebral disc disorder of lumbar region with myelopathy Low back pain radiating to both legs Lumbosacral spondylosis without myelopathy NSTEMI (non-ST elevated myocardial infarction) Thought to be secondary to plaque rupture. Angiogram July 04 no flow-limiting lesions, or restenosis of previous stent from April 2020 Opioid contract exists Osteoarthritis of spine at multiple levels Type 2 diabetes mellitus with diabetic autonomic (poly)neuropathy Vitamin D deficiency Surgical History History of arthroscopic surgery of elbow BILATERAL History of coronary angiogram Angiogram April 2020 with 90% circumflex lesion, drug-eluting stent placed by Dr. Jerome S/p bilateral carpal tunnel release S/P hysterectomy S/P knee surgery RIGHT S/P lumbar fusion DR. Shreya ZAYAS IN [place], [place] L4-L5, L5-S1 Status post lumbar laminectomy Family History Other CAD (coronary artery disease) Cancer Diabetes Social History Smoking and tobacco status: current every day smoker cigarettes [ Other cigarette details: PER PATIENT REPORT ] Second hand smoke exposure: Yes Smoking risk assessment/counseling performed?: Yes Alcohol intake: former Desire information about alcohol rehabilitation?: No Counseling given: No Desire information about substance/drug rehabilitation?: No Counseling given: No Caregiver/support person: No Lives independently: Yes Household members: family and other Details: son Housing: Manufactured/Mobile home Marital status: Unknown Marital status details: She and son state she is not service: No Current occupational status: unemployed Pets and animals: Yes History of recent travel: No Current gender identity: Female Data Anesthesia CBC & Chem 7: 09/30/20 04:28 09/30/20 04:28 Other Labs: Laboratory Results - last 48 hr 09/29/20 09/29/20 09/29/20 15:36 15:36 15:36 WBC 31.6 H* RBC 3.08 L Hgb 8.2 L Hct 27.1 L MCV 88.0 MCH 26.6 L MCHC 30.3 RDW 16.1 H Plt Count 706 H MPV 9.7 Neut % (Auto) 80.3 Lymph % (Auto) 7.9 Howard % (Auto) 7.1 Eos % (Auto) 0.8 Baso % (Auto) 0.4 Neut # (Auto) 25.38 H Lymph # (Auto) 2.5 Howard # (Auto) 2.2 H Eos # (Auto) 0.3 Baso # (Auto) 0.1 Nucleated RBC % (auto) 0.1 Nucleated RBCs # 0.0 ESR Sodium 133 L Potassium 5.1 Chloride 97 L Carbon Dioxide 25 Anion Gap 16.1 BUN 21 H Creatinine 1.2 H GFR Calculation 47.0 L Glucose 215 H POC Glucose Calculated Osmolality 285 Lactate 1.6 Calcium 8.6 Total Bilirubin 0.4 GGT AST 44 H ALT 12 Alkaline Phosphatase 115 H C-Reactive Protein 414.9 H NT-Pro-B Natriuret Pep 341 H Total Protein 6.4 L Albumin 2.8 L Globulin 3.6 Urine Color Urine Appearance Urine pH Ur Specific [place] Urine Protein Urine Glucose (UA) Urine Ketones Urine Blood Urine Nitrate Urine Bilirubin Urine Urobilinogen Ur Leukocyte Esterase Urine RBC Urine WBC Ur Squamous Epith Cells Amorphous Sediment Urine Bacteria Synovial Color Synovial Appearance Synovial WBC Synovial RBC Synovial Mononuclear Synov Polynuclear WBCs Synovial Other Cells Synovial Polynuclear % Synovial Mononuclear % SARS-CoV-2 Ag (Rapid) Path Cons w/Slide Blood Type Rho(D) Type Antibody Screen 09/29/20 09/29/20 09/29/20 15:36 15:36 17:22 WBC RBC Hgb Hct MCV MCH MCHC RDW Plt Count MPV Neut % (Auto) Lymph % (Auto) Howard % (Auto) Eos % (Auto) Baso % (Auto) Neut # (Auto) Lymph # (Auto) Howard # (Auto) Eos # (Auto) Baso # (Auto) Nucleated RBC % (auto) Nucleated RBCs # ESR > 120 H Sodium Potassium Chloride Carbon Dioxide Anion Gap BUN Creatinine GFR Calculation Glucose POC Glucose Calculated Osmolality Lactate Calcium Total Bilirubin GGT 18 AST ALT Alkaline Phosphatase C-Reactive Protein NT-Pro-B Natriuret Pep Total Protein Albumin Globulin Urine Color Urine Appearance Urine pH Ur Specific [place] Urine Protein Urine Glucose (UA) Urine Ketones Urine Blood Urine Nitrate Urine Bilirubin Urine Urobilinogen Ur Leukocyte Esterase Urine RBC Urine WBC Ur Squamous Epith Cells Amorphous Sediment Urine Bacteria Synovial Color Red Synovial Appearance Bloody Synovial WBC 144077 H Synovial RBC 129 H Synovial Mononuclear 21.743 Synov Polynuclear WBCs 218.553 Synovial Other Cells Not Reportable Synovial Polynuclear % 90.900 Synovial Mononuclear % 9.100 SARS-CoV-2 Ag (Rapid) Path Cons w/Slide Yes Blood Type Rho(D) Type Antibody Screen 09/29/20 09/29/20 09/29/20 20:15 22:20 23:40 WBC RBC Hgb Hct MCV MCH MCHC RDW Plt Count MPV Neut % (Auto) Lymph % (Auto) Howard % (Auto) Eos % (Auto) Baso % (Auto) Neut # (Auto) Lymph # (Auto) Howard # (Auto) Eos # (Auto) Baso # (Auto) Nucleated RBC % (auto) Nucleated RBCs # ESR Sodium Potassium Chloride Carbon Dioxide Anion Gap BUN Creatinine GFR Calculation Glucose POC Glucose 194 Calculated Osmolality Lactate Calcium Total Bilirubin GGT AST ALT Alkaline Phosphatase C-Reactive Protein NT-Pro-B Natriuret Pep Total Protein Albumin Globulin Urine Color Dark yellow Urine Appearance Cloudy Urine pH 5 Ur Specific [place] 1.025 Urine Protein Neg Urine Glucose (UA) Norm Urine Ketones Negative Urine Blood 2+ H Urine Nitrate Positive H Urine Bilirubin Neg Urine Urobilinogen Norm Ur Leukocyte Esterase Negative Urine RBC 0-4 H Urine WBC 0-4 H Ur Squamous Epith Cells 15-25 H Amorphous Sediment Not Reportable Urine Bacteria 4+ H Synovial Color Synovial Appearance Synovial WBC Synovial RBC Synovial Mononuclear Synov Polynuclear WBCs Synovial Other Cells Synovial Polynuclear % Synovial Mononuclear % SARS-CoV-2 Ag (Rapid) Negative Path Cons w/Slide Blood Type Rho(D) Type Antibody Screen 09/30/20 09/30/20 09/30/20 04:28 04:28 06:23 WBC 21.7 H RBC 3.03 L Hgb 8.0 L Hct 26.0 L MCV 85.8 MCH 26.4 L MCHC 30.8 RDW 16.0 H Plt Count 693 H MPV 9.5 Neut % (Auto) 76.1 Lymph % (Auto) 10.6 Howard % (Auto) 8.8 Eos % (Auto) 1.8 Baso % (Auto) 0.4 Neut # (Auto) 16.55 H Lymph # (Auto) 2.3 Howard # (Auto) 1.9 H Eos # (Auto) 0.4 Baso # (Auto) 0.1 Nucleated RBC % (auto) 0 Nucleated RBCs # 0.0 ESR Sodium 135 L Potassium 3.7 Chloride 100 Carbon Dioxide 23 Anion Gap 15.7 BUN 15 Creatinine 0.7 GFR Calculation 87.5 L Glucose 155 H POC Glucose 177 Calculated Osmolality 284 L Lactate Calcium 8.4 L Total Bilirubin 0.4 GGT AST 84 H ALT 20 Alkaline Phosphatase 95 C-Reactive Protein NT-Pro-B Natriuret Pep Total Protein 6.0 L Albumin 2.5 L Globulin 3.5 Urine Color Urine Appearance Urine pH Ur Specific [place] Urine Protein Urine Glucose (UA) Urine Ketones Urine Blood Urine Nitrate Urine Bilirubin Urine Urobilinogen Ur Leukocyte Esterase Urine RBC Urine WBC Ur Squamous Epith Cells Amorphous Sediment Urine Bacteria Synovial Color Synovial Appearance Synovial WBC Synovial RBC Synovial Mononuclear Synov Polynuclear WBCs Synovial Other Cells Synovial Polynuclear % Synovial Mononuclear % SARS-CoV-2 Ag (Rapid) Path Cons w/Slide Blood Type Rho(D) Type Antibody Screen 09/30/20 09/30/20 11:31 12:01 WBC RBC Hgb Hct MCV MCH MCHC RDW Plt Count MPV Neut % (Auto) Lymph % (Auto) Howard % (Auto) Eos % (Auto) Baso % (Auto) Neut # (Auto) Lymph # (Auto) Howard # (Auto) Eos # (Auto) Baso # (Auto) Nucleated RBC % (auto) Nucleated RBCs # ESR Sodium Potassium Chloride Carbon Dioxide Anion Gap BUN Creatinine GFR Calculation Glucose POC Glucose 228 Calculated Osmolality Lactate Calcium Total Bilirubin GGT AST ALT Alkaline Phosphatase C-Reactive Protein NT-Pro-B Natriuret Pep Total Protein Albumin Globulin Urine Color Urine Appearance Urine pH Ur Specific [place] Urine Protein Urine Glucose (UA) Urine Ketones Urine Blood Urine Nitrate Urine Bilirubin Urine Urobilinogen Ur Leukocyte Esterase Urine RBC Urine WBC Ur Squamous Epith Cells Amorphous Sediment Urine Bacteria Synovial Color Synovial Appearance Synovial WBC Synovial RBC Synovial Mononuclear Synov Polynuclear WBCs Synovial Other Cells Synovial Polynuclear % Synovial Mononuclear % SARS-CoV-2 Ag (Rapid) Path Cons w/Slide Blood Type A Positive Rho(D) Type Positive Antibody Screen Negative Micro: Microbiology 09/29/20 15:36 Blood Culture - Preliminary Blood NEGATIVE TO DATE 09/29/20 21:07 Blood Culture - Preliminary Blood SPECIMEN COLLECTED 09/29/20 17:22 Gram Stain - Final Synovial Fluid Cardiac Studies: No Data to Display
[2020-09-30] MEDS: sodium chloride 0.9% 1,000 ML 30 ML IV (18:30)
[2020-09-30] MEDS: tranexamic acid 1,000 mg/10mL SDV 1000 MG IRRIGATION (20:01)
[2020-09-30] MEDS: vancomycin 1,000 MG SDV 4000 MG XX (20:01)
[2020-09-30] MEDS: tobramycin 40 mg/mL SDV 2mL 120 MG XX (20:03)
--- NOTE | 2020-09-30 21:04 | P.OP_ITS ---
Operative Report Date of procedure: September 30, 2020 Pre-op Diagnosis: Deep infection left total knee Post-op diagnosis: same Post-op Findings: Same Procedure Done: Revision left total knee arthroplasty antibiotic articulating spacer Implants: DePuy Sigma size 3 left posterior stabilized cemented femoral component, DePuy size 310 mm thickness rotating platform tibial insert, complex P antibiotic cement with 3 additional grams vancomycin added, Stimulan 5cc bioabsorbable beads with 120 mg tobramycin and 1 g vancomycin Pathology: other Pathology: Deep routine and anaerobic cultures were sent Surgeon: Vj Verma Anesthesia: General Estimated blood loss (mL): 100 Tourniquet time (min): 82 Complications: None Findings: The patient had purulent tissue extending from the subcutaneous tissues to the knee arthroplasty no necrotic tissue was identified Condition: stable Disposition: PACU Procedure: The patient was taken to the operating room. She was given vancomycin on the floor and no additional perioperative antibiotics were given. She was prepped and draped in the supine position with a tourniquet on the left thigh. A timeout was performed. The tourniquet was inflated to 350 mm due to the size of her leg. Initially a scalpel was used to open the previous incision and dissection was carried down to the extensor retinaculum. Several Ethibond sutures had torn free and all Ethibond sutures removed with the knee being entered through a medial parapatellar approach. Deep routine and anaerobic cultures were obtained. Initially a tamp was used to loosen the femoral component. The extractor handle was placed on the femur and it was removed with minimal bone loss. Next an osteotome was used to elevate out the tibial insert from the tibial tray. The osteotome was then passed beneath the tray loosening it. Utilizing the implantation handle the tibial tray was removed again with minimal bone loss. Finally an osteotome was used to remove the patellar com ponent. Next aggressive debridement was accomplished removing all devitalized synovium any knee tissue of marginal quality. The Sigma paper box cutter was used to remove a intercondylar notch to remove make space for the Sigma component. The knee was then irrigated with 6 L of saline. On the back table 1 batch of Simplex antibiotic cement was mixed with 3 g of vancomycin. Once the cement reached a doughy texture the femoral component and plastic a tibial component were loosely cemented into place to provide a articulating antibiotic spacer. Stimulan BioSorb will granules were made by the addition of 120 mg of the tobramycin and 1 g of vancomycin. These were placed in the posterior knee, medial lateral gutters, and suprapatellar pouch. The extensor retinaculum was closed with 0 Vicryl. The skin was closed with vertical mattress 1 and 0 Prolene. Xeroflo gauze, 4 x 4's, ABD pads, compressive web roll and Aaron wrap were applied. The patient was extubated and taken to the recovery room in stable condition.
[2020-09-30 22:16] LABS: Glucose Point of Care 205 mg/dL (70-110)
[2020-09-30] MEDS: sodium chloride 0.9% 1,000 ML 100 ML IV (23:06)
[2020-09-30 23:33] LABS: Vancomycin Trough 9.5 ug/mL (10-15)
[2020-10-01] VITALS (43 sets, daily range): BP systolic 67–131; BP diastolic 40–87; PULSE 82–101; RESP 12–30; TEMP 36.7–37.5; O2SAT 90–99
[2020-10-01] MEDS: TRAMadol 50 mg Tablet PO (03:58)
[2020-10-01] MEDS: aztreonam 2,000 MG in sodium chloride 0.9% (plus) 100 ML 200 MG IV ×3 (03:59→20:04)
[2020-10-01 05:17] LABS: Basophils # 0.1 10^3/uL (0.0-0.1); Basophils % 0.4 %; Hematocrit 26.8 % (37.0-47.0); Hemoglobin 7.7 g/dL (11.5-15.3); Lymphocytes # 1.3 10^3/uL (0.8-4.8); Lymphocytes % 5.9 %; Mean Corpuscular HGB Conc 28.7 g/dL (30.0-36.0); Mean Corpuscular Hemoglobin 26.1 pg (28.0-34.0); Mean Corpuscular Volume 90.8 fL (81-99); Mean Platelet Volume 9.6 fL (7.4-10.4); Monocytes # 1.9 10^3/uL (0.2-0.9); Monocytes % 8.6 %; Neutrophils # 18.03 10^3/uL (1.8-7.7); Neutrophils % 83.2 %; Nucleated Red Blood Cells % 0 %; Platelet Count 728 10^3/cmm (130-400); Red Blood Count 2.95 10^6/uL (4.1-5.3); Red Cell Distribution Width 16.3 % (12.1-15.1); White Blood Count 21.7 10^3/uL (4.0-10.0)
[2020-10-01 05:32] LABS: Vancomycin Trough 8.2 ug/mL (10-15)
[2020-10-01] MEDS: sodium chloride 0.9% 500 ML 999 ML IV (05:39)
[2020-10-01 05:42] LABS: Alanine Aminotransferase 30 U/L (0-33); Albumin Level 2.1 g/dL (3.5-5.2); Alkaline Phosphatase 119 IU/L (35-105); Anion Gap 14.5 (5-19); Aspartate Amino Transferase 79 U/L (0-32); Blood Urea Nitrogen 13 mg/dL (6-20); Calcium 8.7 mg/dL (8.5-10.5); Carbon Dioxide 22 mmol/L (22-29); Chloride 101 mmol/L (98-107); Globulin 3.9 g/dL (1.3-4.6); Glomerular Filtration Rate 104.6 mL/min (90-130); Glucose 253 mg/dL (65-115); Osmolality Calculated 285 mOsm/kg (285-295); Potassium 4.5 mmol/L (3.5-5.1); Sodium 133 mmol/L (136-145); Total Bilirubin 0.2 mg/dL (0.15-1.2)
[2020-10-01 06:13] LABS: Slide Review Slide Review Perform
[2020-10-01] MEDS: vancomycin 1,250 MG/250 ML PIGGYBACK 250 MG IV ×2 (06:23→18:49)
[2020-10-01 06:44] LABS: Glucose Point of Care 227 mg/dL (70-110)
--- NOTE | 2020-10-01 07:24 | PC.NURSE ---
Patient rested well through the night with pain well controlled until 344. Patient requested something for pain. Patient was given tramadol 50mg at 0358. Patient removed her NC multiple times causing her to desat to high 80's. Patient had visitor at bedside through the night. Visitor was yelling at the patient to put her oxygen back on multiple times. Visitor was causing patient to be anxious and distressed.
[2020-10-01] MEDS: albuterol 8 gm MDI 2 PUFF INHALATION ×2 (08:12→20:36)
[2020-10-01] MEDS: sennosides-docusate Tablet 2 TAB PO ×2 (09:06→18:49)
[2020-10-01] MEDS: pantoprazole DR 40 mg Tablet PO (09:07)
[2020-10-01] MEDS: aspirin 81 mg Chew Tablet PO (09:07)
[2020-10-01] MEDS: duloxetine 60 mg Capsule PO (09:07)
[2020-10-01] MEDS: levETIRAcetam 500 mg Tablet 1500 MG PO ×2 (09:08→20:13)
[2020-10-01] MEDS: ticagrelor 90 mg Tablet PO ×2 (09:10→20:13)
[2020-10-01] MEDS: topiramate 25 mg Tablet PO ×2 (09:14→20:13)
--- NOTE | 2020-10-01 09:15 | P.PN_ITS ---
Subjective Subjective: Interval history: She tells me she had knee surgery last night. She still has pain in the left leg. No chest pain. Denies trouble breathing. She takes time to think about what place we are in and does not answer. Names year as 2020. Her sister is at bedside. Vitals/I&O/Wt Last Vital Signs Temp 99.5 F 10/01/20 08:00 Pulse 84 10/01/20 08:21 Resp 18 10/01/20 08:18 BP 67/51 10/01/20 08:58 Pulse Ox 94 10/01/20 08:18 09/30/20 10/01/20 10/01/20 22:59 06:59 14:59 Intake Total 1400 / 1500 Output Total 400 / 400 350 / 750 Balance 1000 / 1100 -350 / 750 Weight last 48 hrs Weight 116.392 kg Weight 113.852 kg Weight 117.934 kg Physical Exam Const: COMMON NORMALS: no acute distress; negative for patient oriented x3 GENERAL APPEARANCE: cooperative NUTRITIONAL APPEARANCE: obese ORIENTATION/CONSCIOUSNESS: Yes awake HENMT: COMMON NORMALS: oropharynx normal Neck/C-Spine: COMMON NORMALS: no JVD Resp: COMMON NORMALS: normal respiratory effort and clear to auscultation bilaterally AUSCULTATION: clear to auscultation bilaterally Cardio: COMMON NORMALS: no JVD, regular rhythm, S1 normal heart sound present, S2 normal heart sound present and No murmurs present (Cardio) RATE: tac hycardic RHYTHM: regular rhythm HEART SOUNDS: S1 normal heart sound present and S2 normal heart sound present GI: COMMON NORMALS: Normal to inspection, nondistended, normoactive bowel sounds present, Soft to palpation and non-tender PALPATION: Yes Soft to palpation Extremity: GENERAL: Yes edema (2+) OTHER: LLE swelling, no bleeding or bruising outside dresing. NORBERT wrap over dressing. Neuro: COMMON NORMALS: moves all extremities; negative for patient oriented x3 Skin: COMMON NORMALS: no rashes or lesions noted GENERAL SKIN EXAM: no rashes or lesions noted Urinary Catheter Management^: [place]: Cath Placed During This Visit: yes, but has since been removed by the nurse Reason for Continuing Indwelling Catheter: Decision to DC Catheter Urinary Catheter Date of Insertion: 09/30/20 Urinary Catheter Time of Insertion: 00:30 Date Urinary Catheter Removed: 10/01/20 Time Urinary Catheter Discontinued: 06:34 Data : 10/01/20 04:57 10/01/20 04:57 Micro: Microbiology 09/30/20 19:40 Gram Stain - Final Knee - Left 09/29/20 21:07 Blood Culture - Preliminary Blood NEGATIVE TO DATE 09/29/20 15:36 Blood Culture - Preliminary Blood NEGATIVE TO DATE A&P Assessment and plan (1) Hypotension: This morning received report from evening or night nurse supervisor that she was hypotensive and that 500 mL bolus was given. Bit later in the morning received medication she is still hypotensive, and that a 500 mill bolus is already ordered. Not sure if it is the same bolus. Fresh IV is obtained, and bolus is currently running. We are transferring her to ICU to closely monitor blood pressures and initiate pressors if needed. Discussed with her sister who is at her bedside. She is off blood pressure medications. Hypotension may be due to a number of causes including hypovolemia, medication induced as she received tramadol earlier, possible sepsis and septic shock, less likely cardiogenic shock, adrenal insufficiency among other causes. Discussed also hemoglobin 7.7, as well as surgery last night, we will go ahead and transfuse 1 unit PRBC. Recheck hemoglobin. Discussed also little bit less likely possibility/consideration of adrenal insufficiency. She does have COPD, although sister denies that she is chronically on steroids. I do see she is on inhaled steroid, and adrenal sufficiency may need to be considered if she is not responding to fluid resuscitation, pressor, as discussed with her sister. This is not ideal in the setting of her diabetes, wound infection, and as discussed with her sister may expose her among other side effects to further hyperglycemia, poor wound healing, etc. Sister agrees to proceed with steroid if needed. Check cortisol level. Acute encephalopathy this morning, better than admission, but is somewhat confused. Condition and care discussed with her sister who is at bedside and in agreement with assessment plan. Status: Acute (2) Septic arthritis of knee, left: Status post explantation of left knee hardware last night and placement of antibiotic spacer. Continue IV antibiotics. Follow-up cultures. Discussed with her sister. Status: Acute Qualifiers: Septic arthritis organism: due to unspecified organism Qualified Code(s): M00.9 - Pyogenic arthritis, unspecified (3) Status post left knee replacement: Status: Acute (4) QIANA (acute kidney injury): QIANA on admission resolved. Monitor hemoglobin now given hypotension episodes. Hold losartan for now. Hold Lasix. Monitor urine output. Renal function. Avoid NSAIDs. Status: Acute (5) Current every day smoker: Encourage cessation. Status: Chronic (6) Coronary artery disease due to type 2 diabetes mellitus: Stenting in April, subsequently in June coronary angiography which showed some multifocal coronary disease, not requiring intervention. Continue aspirin, Plavix until at least if possible. Denies chest pain or pressure. Status: Acute (7) Chronic obstructive pulmonary disease, unspecified: Reports chronically on oxygen of 2 L. Currently appears at baseline. Does report some mild intermittent cough, intermittently productive. Some small airway inflammation noted on chest x-ray. Possibly mild COPD exacerbation. For now held off on steroids, but may need them for other reasons. Continue inhalers. Collect sputum culture. Rapid COVID-19 antigen test negative. Status: Acute Qualifiers: COPD type: unspecified COPD Qualified Code(s): J44.9 - Chronic obstructive pulmonary disease, unspecified (8) Essential hypertension: Monitor BPs Status: Chronic (9) Anemia: Hb 7.7. 1 unit prbc. On ASA, Brillinta. Continue for now. Check hemoccult. Status: Acute (10) Diabetes type 2, uncontrolled: Continue long-acting insulin. Sliding scale. Status: Acute Qualifiers: Glycemic state: with hyperglycemia Qualified Code(s): E11.65 - Type 2 diabetes mellitus with hyperglycemia Additional A&P Information Alk phos elevation:possibly related to recent knee surgery. Normal GGT Acute on chronic leukocytosis Thrombocytosis Mild hyponatremia Attestations Medical Necessity Statement*: Continue admission for assessment management of sepsis, following septic arthritis, hardware explantation, hypotension this morning, acute on chronic anemia with underlying COPD, chronic hypoxemia, diabetes, and other comorbidities. Critical Care Time: 40 minutes critical care time spent on assessment and management of immediately life-threatening issues including hypotension, acute encephalopathy, acute anemia, discussed with nursing staff, patient's family and patient on transfer to ICU. 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
[2020-10-01 09:45] LABS: Hemoglobin 7.3 g/dL (11.5-15.3)
[2020-10-01] MEDS: lactated ringers 1,000 ML 999 ML IV (09:50)
--- NOTE | 2020-10-01 10:36 | PC.OT ---
OT EVALUATION HELD TODAY DUE TO DECLINE IN STATUS AND TRANSFER TO ICU
[2020-10-01 11:16] LABS: Glucose Point of Care 239 mg/dL (70-110)
[2020-10-01] MEDS: sodium chloride 0.9% 1,000 ML 100 ML IV ×2 (11:21→20:09)
--- NOTE | 2020-10-01 13:04 | PM.PN ---
Subjective Subjective: Interval history: Patient awake and answers the questions appropriately. Seen at bedside with patient's mother Vitals/I&O/Wt Last Vital Signs Temp 98.3 F 10/01/20 11:55 Pulse 85 10/01/20 11:55 Resp 26 H 10/01/20 11:55 BP 97/57 10/01/20 11:55 Pulse Ox 95 10/01/20 11:55 09/30/20 10/01/20 10/01/20 22:59 06:59 14:59 Intake Total 1400 / 1500 100 / 1600 2014. Output Total 400 / 400 350 / 750 Balance 1000 / 1100 -250 / 850 Weight last 48 hrs Weight 256 lb 9.6 oz Weight 251 lb Weight 260 lb Physical Exam Narrative: EXAM NARRATIVE: Left knee dressing clean and dry. Flexes and extends toes and ankle. Urinary Catheter Management^: [place]: Cath Placed During This Visit: yes, but has since been removed by the nurse Reason for Continuing Indwelling Catheter: Decision to DC Catheter Urinary Catheter Date of Insertion: 09/30/20 Urinary Catheter Time of Insertion: 00:30 Date Urinary Catheter Removed: 10/01/20 Time Urinary Catheter Discontinued: 06:34 Data : 10/01/20 09:28 10/01/20 04:57 Micro: Microbiology 09/30/20 19:40 Gram Stain - Final Knee - Left 09/29/20 21:07 Blood Culture - Preliminary Blood NEGATIVE TO DATE 09/29/20 15:36 Blood Culture - Preliminary Blood NEGATIVE TO DATE A&P Assessment and plan (1) Septic arthritis of knee, left: Status: Acute Qualifiers: Septic arthritis organism: due to unspecified organism Qualified Code(s): M00.9 - Pyogenic arthritis, unspecified (2) Status post left knee replacement: Postop day 1 after exchange left knee with antibiotic impregnated cement and spacers. Preliminary cultures revealed gram-positive cocci. We should have an organism today. I discussed the severity of an infected prosthesis with the patient's mother who is adamant that she wants [place] to be discharged home. I told her this really will be dependent on what insurance will cover for home IV antibiotics. She may be limited to longterm at discharge. 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
--- NOTE | 2020-10-01 16:44 | PC.RESP ---
Smoking Cessation and Pulmonary Rehab information sent to patient.
[2020-10-01 17:59] LABS: Glucose Point of Care 228 mg/dL (70-110)
[2020-10-01 18:32] LABS: Cortisol Random 5.55 ug/mL (2.47-19.5)
[2020-10-01] MEDS: HYDROmorphone 1 mg/mL INJ 1 mL IVP (20:04)
[2020-10-01] MEDS: quetiapine 25 mg Tablet 50 MG PO (20:13)
[2020-10-01] MEDS: atorvastatin 40 mg Tablet PO (20:13)
[2020-10-01 20:41] LABS: Glucose Point of Care 196 mg/dL (70-110)
[2020-10-01] MEDS: ranolazine (12HR) 500 mg Tablet 1000 MG PO (20:54)
[2020-10-01] MEDS: enoxaparin 30 mg/0.3 mL Syringe SUBCUT (23:10)
[2020-10-02] VITALS (89 sets, daily range): BP systolic 77–195; BP diastolic 50–118; PULSE 88–104; RESP 12–29; TEMP 36.6–36.7; O2SAT 41–100
[2020-10-02] MEDS: OLANZapine 10 mg VIAL IM (02:57)
[2020-10-02] MEDS: aztreonam 2,000 MG in sodium chloride 0.9% (plus) 100 ML 200 MG IV ×3 (03:39→19:10)
[2020-10-02 05:10] LABS: Basophils # 0.1 10^3/uL (0.0-0.1); Basophils % 0.4 %; Eosinophils # 0.3 10^3/uL (0.0-0.8); Eosinophils % 1.5 %; Hematocrit 26.7 % (37.0-47.0); Hemoglobin 8.1 g/dL (11.5-15.3); Lymphocytes # 2.8 10^3/uL (0.8-4.8); Lymphocytes % 15.1 %; Mean Corpuscular HGB Conc 30.3 g/dL (30.0-36.0); Mean Corpuscular Hemoglobin 25.9 pg (28.0-34.0); Mean Corpuscular Volume 85.3 fL (81-99); Mean Platelet Volume 9.2 fL (7.4-10.4); Monocytes % 10.9 %; Neutrophils # 12.92 10^3/uL (1.8-7.7); Neutrophils % 70.2 %; Nucleated Red Blood Cells % 0.2 %; Platelet Count 780 10^3/cmm (130-400); Red Blood Count 3.13 10^6/uL (4.1-5.3); Red Cell Distribution Width 15.9 % (12.1-15.1); White Blood Count 18.4 10^3/uL (4.0-10.0)
[2020-10-02 05:26] LABS: Vancomycin Trough 12.3 ug/mL (10-15)
[2020-10-02 05:28] LABS: Alanine Aminotransferase 30 U/L (0-33); Albumin Level 2.2 g/dL (3.5-5.2); Alkaline Phosphatase 119 IU/L (35-105); Anion Gap 12.8 (5-19); Aspartate Amino Transferase 63 U/L (0-32); Blood Urea Nitrogen 10 mg/dL (6-20); Carbon Dioxide 23 mmol/L (22-29); Chloride 105 mmol/L (98-107); Globulin 3.7 g/dL (1.3-4.6); Glomerular Filtration Rate 129.1 mL/min (90-130); Glucose 170 mg/dL (65-115); Osmolality Calculated 287 mOsm/kg (285-295); Potassium 3.8 mmol/L (3.5-5.1); Sodium 137 mmol/L (136-145); Total Bilirubin 0.2 mg/dL (0.15-1.2); Total Protein 5.9 g/dL (6.6-8.7)
[2020-10-02] MEDS: vancomycin 1,250 MG/250 ML PIGGYBACK 250 MG IV (06:02)
[2020-10-02 07:49] LABS: Glucose Point of Care 194 mg/dL (70-110)
[2020-10-02] MEDS: sodium chloride 0.9% 1,000 ML 100 ML IV ×2 (08:05→18:10)
[2020-10-02] MEDS: ranolazine (12HR) 500 mg Tablet 1000 MG PO ×2 (08:07→20:06)
[2020-10-02] MEDS: sennosides-docusate Tablet 2 TAB PO ×2 (08:07→18:02)
[2020-10-02] MEDS: ticagrelor 90 mg Tablet PO ×2 (08:07→20:06)
[2020-10-02] MEDS: pantoprazole DR 40 mg Tablet PO (08:07)
[2020-10-02] MEDS: duloxetine 60 mg Capsule PO (08:08)
[2020-10-02] MEDS: aspirin 81 mg Chew Tablet PO (08:08)
--- NOTE | 2020-10-02 08:08 | ECG_ITS ---
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 Measurements Intervals [place] Rate: 69 P: -43 RI: 196 QRS: 42 QRSD: 92 T: 33 QT: 391 QTc: 422 Interpretive Statements SINUS RHYTHM Compared to ECG 09/29/2020 14:58:57 Sinus tachycardia no longer present Electronically Signed On 10-02-2020 22:41:33 CERTIFIED MEDICAL CODING SPECIALIST by Troy Joyce M.D. [id number]
[2020-10-02] MEDS: albuterol 8 gm MDI 2 PUFF INHALATION ×2 (08:09→20:27)
--- NOTE | 2020-10-02 08:09 | PM.PN ---
Subjective Subjective: Interval history: She is interacting and cooperative, but anxious. Confused. On ROS complains of chest pain which is central, worsened on inspiration and palpation of the sternum. She denies headache. Denies shortness of breath. Has no abdominal pain or nausea. Vitals/I&O/Wt Last Vital Signs Temp 98.1 F 10/02/20 04:00 Pulse 91 10/02/20 06:15 Resp 16 10/02/20 06:15 BP 96/63 10/02/20 06:15 Pulse Ox 91 10/02/20 06:15 10/01/20 10/02/20 10/02/20 22:59 06:59 14:59 Intake Total 1266.1 / 4087.567 36.226 / 4123.793 1100 / 1100 Output Total 950 / 950 775 / 1725 Balance 316.1 / 3137.567 -738.774 / 2398.793 1100 / 1100 Weight last 48 hrs Weight 116.664 kg Weight 116.392 kg Physical Exam Const: COMMON NORMALS: no acute distress; negative for patient oriented x3 GENERAL APPEARANCE: cooperative and anxious NUTRITIONAL APPEARANCE: obese ORIENTATION/CONSCIOUSNESS: Yes awake and Yes oriented to person HENMT: COMMON NORMALS: oropharynx normal Neck/C-Spine: COMMON NORMALS: no JVD Resp: COMMON NORMALS: normal respiratory effort and clear to auscultation bilaterally AUSCULTATION: clear to auscultation bilaterally Cardio: COMMON NORMALS: no JVD, regular rhythm, S1 normal heart sound present, S2 normal heart sound present and No murmurs present (Cardio) RATE: tachycardic RHYTHM: regular rhythm HEART SOUNDS: S1 normal heart sound present and S2 normal heart sound present GI: COMMON NORMALS: Normal to inspection, nondistended, normoactive bowel sounds present, Soft to palpation and non-tender PALPATION: Yes Soft to palpation Extremity: GENERAL: Yes edema (2+) OTHER: LLE swelling around the knee. Dressing in place. Neuro: COMMON NORMALS: moves all extremities; negative for patient oriented x3 SENSORIUM/ORIENTATION: Yes oriented to person Skin: COMMON NORMALS: no rashes or lesions noted GENERAL SKIN EXAM: no rashes or lesions noted Urinary Catheter Management^: [place]: Cath Placed During This Visit: yes, but has since been removed by the nurse Reason for Continuing Indwelling Catheter: Accurate Measurement of Urinary Output in Critically Ill Patients Urinary Catheter Date of Insertion: 09/30/20 Urinary Catheter Time of Insertion: 00:30 Date Urinary Catheter Removed: 10/01/20 Time Urinary Catheter Discontinued: 06:34 Data : 10/02/20 04:31 10/02/20 04:31 Micro: Microbiology 09/29/20 17:22 Gram Stain - Final Synovial Fluid Body Fluid Culture - Preliminary Staphylococcus aureus Strep agalactiae - (group b) 09/30/20 19:40 Gram Stain - Final Knee - Left A&P Assessment and plan (1) Hypotension: Persistent hypotension. Weaned down slightly on pressor, but continues to require norepinephrine. This morning at 3.5 mcg. Mean atrial pressure is 70-77. Attempting to taper down further. Joint aspiration culture growing Staph aureus, strep agalactiae. Continues on vancomycin. Aztreonam. Vancomycin level is a little bit better at 12.5. Discussed with pharmacy vancomycin dose will be adjusted for a bit more aggressive therapy. Target level 15-20. Monitor levels and renal function. She is in positive balance. Had decent response to PRBC transfusion. Recheck hemoglobin level. Today she is noting some chest pain which appears to be musculoskeletal and/or pleuritic. Will check troponin EKG series. Chest x-ray. With persistent hypotension check echocardiogram. Continue attempts to wean off norepinephrine this morning. If unsuccessful may require stress dose steroid. Acute encephalopathy secondary to infection. Continue to reorient. She is anxious. Low-dose Ativan as needed for anxiety. Monitor response. Status: Acute (2) Septic arthritis of knee, left: Status post explantation of left knee hardware 09/30 and placement of antibiotic spacer. Continue IV antibiotics. Follow-up cultures. SA and GBS growing so far. Status: Acute Qualifiers: Septic arthritis organism: due to unspecified organism Qualified Code(s): M00.9 - Pyogenic arthritis, unspecified (3) Status post left knee replacement: Status: Acute (4) QIANA (acute kidney injury): QIANA on admission resolved. Monitor hemoglobin now given hypotension episodes. Hold losartan for now. Hold Lasix. Monitor urine output. Renal function. Avoid NSAIDs. Status: Acute (5) Current every day smoker: Encourage cessation. Status: Chronic (6) Coronary artery disease due to type 2 diabetes mellitus: Stenting in April, subsequently in June coronary angiography which showed some multifocal coronary disease, not requiring intervention. Continue aspirin, Plavix until at least October/November if possible. Status: Acute (7) Chronic obstructive pulmonary disease, unspecified: Reports chronically on oxygen of 2 L. Currently appears at baseline. Does report some mild intermittent cough, intermittently productive. Some small airway inflammation noted on chest x-ray. Possibly mild COPD exacerbation. For now held off on steroids, but may need them for other reasons. Continue inhalers. Collect sputum culture. Rapid COVID-19 antigen test negative. Status: Acute Qualifiers: COPD type: unspecified COPD Qualified Code(s): J44.9 - Chronic obstructive pulmonary disease, unspecified (8) Essential hypertension: Monitor BPs Status: Chronic (9) Anemia: S/p 1 unit prbc. Recheck Hb tonight. On ASA, Brillinta. Continue for now. Check hemoccult. Status: Acute (10) Diabetes type 2, uncontrolled: Continue long-acting insulin. Sliding scale. If no lower BG values may tolerate moderate sliding scale. Status: Acute Qualifiers: Glycemic state: with hyperglycemia Qualified Code(s): E11.65 - Type 2 diabetes mellitus with hyperglycemia Additional A&P Information Alk phos elevation: possibly related to recent knee surgery. Normal GGT Acute on chronic leukocytosis Thrombocytosis Mild hyponatremia Attestations Medical Necessity Statement*: Continue admission for assessment management of septic arthritis with hypotension, acute encephalopathy, acute anemia, in the setting of diabetes, coronary disease, COPD with chronic hypoxia and other comorbidities. 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
[2020-10-02] MEDS: topiramate 25 mg Tablet PO ×2 (08:10→20:06)
[2020-10-02] MEDS: levETIRAcetam 500 mg Tablet 1500 MG PO ×2 (08:10→20:06)
--- NOTE | 2020-10-02 08:24 | USCV_ITS ---
Mayra Ascencio Age: 55 Gender: F : 1965 Exam Date: 10/02/2020 08:43 Ordering Phys: Avila Marie MD Technologist: Cruz Hood [place] [facility] [place]: CAD, HYPOTENSION BP: 139 / 115 HR: 95 Rhythm: Sinus Technical Quality: Fair MEASUREMENTS (Male / Female) Normal Values 2D ECHO LV Diastolic Diameter PLAX 4.8 cm 4.2 - 5.9 / 3.9 - 5.3 cm LV Systolic Diameter PLAX 3.2 cm IVS Diastolic Thickness 1.3 cm 0.6 - 1.0 / 0.6 - 0.9 cm IVS Systolic Thickness 1.6 cm LVPW Diastolic Thickness 1.0 cm 0.6 - 1.0 / 0.6 - 0.9 cm LVPW Systolic Thickness 1.2 cm LVOT Diameter 2.1 cm LV Ejection Fraction 2D Teich 63.8 % LV Ejection Fraction MOD 2C 72.2 % LV Ejection Fraction 2C AL 71.8 % LA Diameter 4.2 cm LA Width 3.5 cm LA Height 5.3 cm RA Width 3.8 cm RA Height 5.2 cm Aorta at Sinotubular Diameter 2.2 cm M-MODE LV Diastolic Diameter MM 5.6 cm 4.2 - 5.9 / 3.9 - 5.3 cm LV Systolic Diameter MM 3.1 cm LV Ejection Fraction MM Teich 75.4 % IVS Diastolic Thickness MM 0.8 cm 0.6 - 1.0 / 0.6 - 0.9 cm IVS Systolic Thickness MM 1.4 cm LVPW Diastolic Thickness MM 1.0 cm 0.6 - 1.0 / 0.6 - 0.9 cm LVPW Systolic Thickness MM 1.6 cm RV Diastolic Diameter MM 1.7 cm Aortic Annulus Diameter 3.2 cm LA Ao Ratio MM 1.5 MV E Point Septal Separation 0.6 cm FINDINGS Left Ventricle Normal left ventricular size and systolic function, EF 68 %. No regional wall motion abnormalities. Right Ventricle Normal right ventricular size and systolic function. Right Atrium Possibly of normal size Left Atrium Mildly increased left atrial size. Mitral Valve Thickened mitral valve. Aortic Valve Thickened aortic valve. Tricuspid Valve No gross abnormalities noted Pulmonic Valve Pulmonic valve not well visualized. Pericardium No pericardial effusion. Aorta Normal aortic annulus size. CONCLUSIONS Normal left ventricular size and systolic function, EF 68 %. No regional wall motion abnormalities. Thickened aortic and mitral valves.Mildly increased left atrial size. There is no pericardial effusion. There are no intracardiac masses. Compared to the study from 05/25/1820, there may not be a significant change in the 2D findings Dr Troy Joyce MD [facility] (Electronically Signed) Final Date: 02 October 2020 17:33 S
--- NOTE | 2020-10-02 08:25 | XR_ITS ---
WS: [id number] XR chest 1V portable [id number] REASON FOR EXAM: msk/pleuritic chest pain FINDINGS: Compared to the previous examination 09/29/2020 the patient may be developing infiltrative changes in the left midlung field and left lower lung field. No other interval change or new finding. XR/XR chest 1V portable [id number] IMPRESSION: Questionable interval infiltrate development follow-up chest x-rays will provid e the further evaluation.
[2020-10-02] MEDS: LORazepam 2 mg/mL INJ 1 mL 0.5 MG IVP ×2 (08:55→21:29)
[2020-10-02 09:20] LABS: Troponin(5th) Baseline 28 ng/L (0-10)
--- NOTE | 2020-10-02 09:21 | PC.OT ---
OT NOTE: OT EVALUATION ATTEMPTED THIS A.M. PATIENT IS VERY ANXIOUS AND C/O OF CHEST AND KNEE PAIN. ATIVAN GIVEN BY NURSE. NURSE REQUESTS THAT WE LET PATIENT REST AND ATTEMPT AGAIN IN P.M.
--- NOTE | 2020-10-02 10:08 | ECG_ITS ---
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 Measurements Intervals [place] Rate: 89 P: -11 MN: 163 QRS: 33 QRSD: 99 T: 29 QT: 370 QTc: 453 Interpretive Statements SINUS RHYTHM Compared to ECG 10/02/2020 08:21:07 No significant changes Electronically Signed On 10-02-2020 22:55:03 CODER by Troy Joyce M.D. [id number]
[2020-10-02] MEDS: HYDROmorphone 1 mg/mL INJ 1 mL IVP ×4 (10:23→23:49)
--- NOTE | 2020-10-02 10:29 | PC.NURSE ---
SHIFT UPDATE- 1412-8601: Patient resting comfortably in bed. Levophed infusing at 4 mcg/min. No signs of anxiety. Denies c/o. Doctor rounds, pt reports chest pain. New orders given per MD. 0810: Patient yelling out saying she can't breath. Vital signs stable. Supplemental oxygen provided at 2 lpm/NC. Complains shes having chest pain, knee pain, headache then continues to yell out for momma . PO dilauded given as scheduled. DR notified of anxiety - new orders given. [id number]: Resting quietly in bed without c/o. 4709-9996: Patient begins yelling out again. Pulling covers off. Trying to take leads off. Patient states I want to get up then says I want to lay down , while she is laying in bed. IV dilauded given for c/o pain. Currently resting in bed without c/o.
[2020-10-02] MEDS: hydrocortisone 100 mg/2 mL SDV IVP (11:40)
[2020-10-02 11:43] LABS: Troponin 5 2HR 26.74 ng/L (0-10)
[2020-10-02 11:44] LABS: Troponin 5 2HR Delta -1.26 ABS# (0-10)
[2020-10-02 11:53] LABS: Glucose Point of Care 167 mg/dL (70-110)
--- NOTE | 2020-10-02 12:50 | PC.CHAP ---
Pastoral Care Encounter/Spiritual Assessment Type of Contact [] Declined emergency room clerk visit [] Patient/Family/Request visit [] Outpatient visit [] Follow-up visit [] Physician referral [] Code/Alert [] Routine visit [] Staff referral [] Actively dying [] Patient sleeping [] Family support [] [] Out of room [] Palliative care [] [] Receiving care in room [] Pre-surgical visit [] Trauma [] Long length of stay [x] ICU visit [] Other: Relational/Emotional Strength [] Patient feels connected with others/family/visitors/staff [] Distress [] Loneliness/isolation [] Abandonment Spirituality of Patient [] Person of Mary [] Attends Episcopalian of their Mary [] Believes in Prayer [] Reads Bible or Yazdanism materials [] There are Spiritual issues to be addressed Shopper Interventions [x] Prayer [] Active listening [] Non-anxious presence [] Spiritual/emotional support [] Crisis/trauma care [] Spiritual counseling [] Bereavement support [] Provided bereavement packet [] Provided Bible/devotional materials [] Provided toy/stuffed animal, coloring book to patient or family member [] Provided Communion [] Anointing/[place] [] Salvation [x] Completed spiritual assessment [] Other: Impact on Illness or Injury [] Angry [] Fearful [] Anxious [] Often cries [] Exhaustion [] Unable to work [] Unable to attend pentecostalism [] Unable to walk/stand [] Unable to read [] Unable to drive [] Unable to eat/drink [] Unable to sleep [] Unable to be with family [] Patient intubated [] Other: Summary Time spent with patient
--- NOTE | 2020-10-02 15:10 | PC.SOCIAL ---
IMM Page 2 of IMM given to patient. Initialed, dated, and timed and placed in chart.
--- NOTE | 2020-10-02 15:34 | PM.PN ---
Subjective Subjective: Interval history: Up in chair. Looking better. Still L leg pain Vitals/I&O/Wt Last Vital Signs Temp 98.0 F 10/02/20 09:00 Pulse 97 10/02/20 13:32 Resp 18 10/02/20 10:23 BP 139/115 10/02/20 09:00 Pulse Ox 92 10/02/20 08:15 10/02/20 10/02/20 10/02/20 06:59 14:59 22:59 Intake Total 36.226 / 4123.793 1451.774 / 1451.774 Output Total 775 / 1725 Balance -738.774 / 2398.793 1451.774 / 1451.774 Weight last 48 hrs Weight 257 lb 3.2 oz Weight 256 lb 9.6 oz Physical Exam Narrative: EXAM NARRATIVE: Less erythema left leg. Incision with small amount drainage centrally Urinary Catheter Management^: [place]: Cath Placed During This Visit: yes, but has since been removed by the nurse Reason for Continuing Indwelling Catheter: Accurate Measurement of Urinary Output in Critically Ill Patients Urinary Catheter Date of Insertion: 09/30/20 Urinary Catheter Time of Insertion: 00:30 Date Urinary Catheter Removed: 10/01/20 Time Urinary Catheter Discontinued: 06:34 Data : 10/02/20 04:31 10/02/20 04:31 Micro: Microbiology 09/30/20 19:40 Gram Stain - Final Knee - Left Wound Culture - Preliminary Staphylococcus aureus 09/29/20 17:22 Gram Stain - Final Synovial Fluid Body Fluid Culture - Preliminary Methicillin Resis Staph Aureus Strep agalactiae - (group b) A&P Assessment and plan (1) Septic arthritis of knee, left: Status: Acute Qualifiers: Septic arthritis organism: due to unspecified organism Qualified Code(s): M00.9 - Pyogenic arthritis, unspecified (2) Status post left knee replacement: cultures with MRSA and Strep both appropariately treated with Vancomycin. WBC decreasing. Will follow over weekend. 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
[2020-10-02 15:43] LABS: Influenza A by IFA Negative (Negative); Influenza B by IFA Negative (Negative)
[2020-10-02 16:43] LABS: Hemoglobin 9.4 g/dL (11.5-15.3)
[2020-10-02 17:01] LABS: Troponin 5 6HR 22.31 ng/L (0-10)
[2020-10-02 17:06] LABS: Troponin 5 6HR Delta -5.69 ng/L (0-12)
[2020-10-02 17:36] LABS: Glucose Point of Care 181 mg/dL (70-110)
[2020-10-02] MEDS: vancomycin 1,500 MG/300 ML PIGGYBACK 250 MG IV (18:04)
[2020-10-02] MEDS: quetiapine 25 mg Tablet 50 MG PO (20:06)
[2020-10-02] MEDS: atorvastatin 40 mg Tablet PO (20:06)
[2020-10-02 21:02] LABS: Glucose Point of Care 192 mg/dL (70-110)
[2020-10-02] MEDS: metoclopramide 5 mg/mL SDV 2 mL 10 MG IV (21:25)
[2020-10-02] MEDS: enoxaparin 30 mg/0.3 mL Syringe SUBCUT (22:06)
[2020-10-03] VITALS (32 sets, daily range): BP systolic 83–168; BP diastolic 58–97; PULSE 92–105; RESP 14–36; TEMP 36.3–37.6; O2SAT 90–97; BMI 45.2
[2020-10-03] MEDS: LORazepam 2 mg/mL INJ 1 mL 0.5 MG IVP (01:02)
[2020-10-03] MEDS: HYDROmorphone 1 mg/mL INJ 1 mL IVP ×4 (01:36→19:23)
[2020-10-03] MEDS: aztreonam 2,000 MG in sodium chloride 0.9% (plus) 100 ML 200 MG IV ×3 (03:13→19:34)
[2020-10-03] MEDS: vancomycin 1,500 MG/300 ML PIGGYBACK 250 MG IV (05:02)
[2020-10-03 05:07] LABS: Alanine Aminotransferase 32 U/L (0-33); Albumin Level 2.4 g/dL (3.5-5.2); Alkaline Phosphatase 103 IU/L (35-105); Aspartate Amino Transferase 47 U/L (0-32); Blood Urea Nitrogen 8 mg/dL (6-20); Calcium 8.8 mg/dL (8.5-10.5); Carbon Dioxide 19 mmol/L (22-29); Chloride 107 mmol/L (98-107); Globulin 2.6 g/dL (1.3-4.6); Glucose 121 mg/dL (65-115); Osmolality Calculated 290 mOsm/kg (285-295); Sodium 140 mmol/L (136-145); Total Bilirubin 0.2 mg/dL (0.15-1.2)
[2020-10-03 05:11] LABS: Anion Gap 17.8 (5-19); Potassium 3.8 mmol/L (3.5-5.1)
--- NOTE | 2020-10-03 06:00 | XR_ITS ---
WS: [id number] XR chest 1V portable [id number] REASON FOR EXAM: Hypoxia FINDINGS: The inspiratory effort is not optimal. Compared to previous examination 09/29/2020 there is increased in the central bronchovascular markings with some hazy density. On reevaluation due to the chest findings the heart is mildly enlarged. The right costophrenic angle is obscured. XR/XR chest 1V portable [id number] IMPRESSION: The lung abnormalities are most suggestive of congestive heart failure possibly with right pleural effusion. Acute subacute pneumonitis is less likely because of the central distribution of the lung findings.
[2020-10-03 06:47] LABS: Basophils # 0.1 10^3/uL (0.0-0.1); Basophils % 0.5 %; Eosinophils # 0.3 10^3/uL (0.0-0.8); Eosinophils % 1.7 %; Hematocrit 25.7 % (37.0-47.0); Hemoglobin 7.8 g/dL (11.5-15.3); Lymphocytes # 3.3 10^3/uL (0.8-4.8); Mean Corpuscular HGB Conc 30.4 g/dL (30.0-36.0); Mean Corpuscular Hemoglobin 26.1 pg (28.0-34.0); Mean Platelet Volume 9.4 fL (7.4-10.4); Monocytes # 1.9 10^3/uL (0.2-0.9); Monocytes % 10.1 %; Neutrophils % 66.3 %; Nucleated Red Blood Cells % 0.2 %; Platelet Count 837 10^3/cmm (130-400); Red Blood Count 2.99 10^6/uL (4.1-5.3); Red Cell Distribution Width 16.2 % (12.1-15.1); White Blood Count 18.5 10^3/uL (4.0-10.0)
[2020-10-03 08:20] LABS: Glucose Point of Care 144 mg/dL (70-110)
[2020-10-03] MEDS: albuterol 8 gm MDI 2 PUFF INHALATION ×2 (08:29→20:46)
[2020-10-03] MEDS: duloxetine 60 mg Capsule PO (09:15)
[2020-10-03] MEDS: aspirin 81 mg Chew Tablet PO (09:15)
[2020-10-03] MEDS: sennosides-docusate Tablet 2 TAB PO (09:15)
[2020-10-03] MEDS: ranolazine (12HR) 500 mg Tablet 1000 MG PO ×2 (09:15→20:24)
[2020-10-03] MEDS: pantoprazole DR 40 mg Tablet PO (09:16)
[2020-10-03] MEDS: ticagrelor 90 mg Tablet PO ×2 (09:16→20:00)
--- NOTE | 2020-10-03 09:16 | PC.CHAP ---
Pastoral Care Encounter/Spiritual Assessment Type of Contact [] Declined financial business analyst visit [] Patient/Family/Request visit [] Outpatient visit [] Follow-up visit [] Physician referral [] Code/Alert [] Routine visit [] Staff referral [] Actively dying [] Patient sleeping [] Family support [] [] Out of room [] Palliative care [] [] Receiving care in room [] Pre-surgical visit [] Trauma [] Long length of stay [x] ICU visit [] Other: Relational/Emotional Strength [] Patient feels connected with others/family/visitors/staff [] Distress [] Loneliness/isolation [] Abandonment Spirituality of Patient [] Person of Mary [] Attends Hindu of their Mary [] Believes in Prayer [] Reads Bible or Muslim materials [] There are Spiritual issues to be addressed Shower Room Attendant Interventions [x] Prayer [] Active listening [] Non-anxious presence [] Spiritual/emotional support [] Crisis/trauma care [] Spiritual counseling [] Bereavement support [] Provided bereavement packet [] Provided Bible/devotional materials [] Provided toy/stuffed animal, coloring book to patient or family member [] Provided Communion [] Anointing/[place] [] Salvation [x] Completed spiritual assessment [] Other: Impact on Illness or Injury [] Angry [] Fearful [] Anxious [] Often cries [] Exhaustion [] Unable to work [] Unable to attend orthodoxy [] Unable to walk/stand [] Unable to read [] Unable to drive [] Unable to eat/drink [] Unable to sleep [] Unable to be with family [] Patient intubated [] Other: Summary Time spent with patient
[2020-10-03] MEDS: topiramate 25 mg Tablet PO ×2 (09:19→20:00)
[2020-10-03] MEDS: levETIRAcetam 500 mg Tablet 1500 MG PO (09:19)
--- NOTE | 2020-10-03 10:23 | PC.NURSE ---
0750: Linens needed straightened and pt repositioned.Pt fought it and cried out for her Momma. Stage II on left buttock noted. 1000: Pt incontinent of BM, pericare provided and repositioning provided. Pt fought it again, making it extremely difficult, calling out for her Momma. Explained to pt prior pt said I know .
[2020-10-03 11:54] LABS: Glucose Point of Care 239 mg/dL (70-110)
--- NOTE | 2020-10-03 15:13 | P.PN_ITS ---
Vitals/I&O/Wt Last Vital Signs Temp 98.2 F 10/03/20 08:00 Pulse 103 H 10/03/20 09:00 Resp 27 H 10/03/20 09:00 BP 127/97 10/03/20 09:00 Pulse Ox 94 10/03/20 09:00 10/03/20 10/03/20 10/03/20 06:59 14:59 22:59 Intake Total 322 / 6373.774 400 / 400 Output Total 875 / 1475 Balance -553 / 4898.774 400 / 400 Weight last 48 hrs Weight 123.332 kg Weight 116.664 kg Physical Exam Urinary Catheter Management^: [place]: Cath Placed During This Visit: yes, but has since been removed by the nurse Reason for Continuing Indwelling Catheter: Accurate Measurement of Urinary Output in Critically Ill Patients Urinary Catheter Date of Insertion: 09/30/20 Urinary Catheter Time of Insertion: 00:30 Date Urinary Catheter Removed: 10/01/20 Time Urinary Catheter Discontinued: 06:34 Data : 10/03/20 05:38 10/03/20 04:26 Micro: Microbiology 09/30/20 19:40 Gram Stain - Final Knee - Left Anaerobic Culture - Preliminary Wound Culture - Preliminary Methicillin Resis Staph Aureus 09/29/20 17:22 Gram Stain - Final Synovial Fluid Body Fluid Culture - Final Methicillin Resis Staph Aureus Strep agalactiae - (group b) 10/02/20 14:24 Legionella Urinary Antigen - Final Urine Catheterized 10/02/20 14:24 Bacterial Antigens - Final Urine,Voided A&P Additional A&P Information Hypotension: Persistent hypotension. Weaned down slightly on pressor, but continues to require norepinephrine. This morning at 3.5 mcg. Mean atrial pressure is 70-77. Attempting to taper down further. Joint aspiration culture growing Staph aureus, strep agalactiae. Continues on vancomycin. Aztreonam. Vancomycin level is a little bit better at 12.5. Discussed with pharmacy vancomycin dose will be adjusted for a bit more aggressive therapy. Target level 15-20. Monitor levels and renal function. She is in positive balance. Had decent response to PRBC transfusion. Recheck hemoglobin level. Today she is noting some chest pain which appears to be musculoskeletal and/or pleuritic. Will check troponin EKG series. Chest x-ray. With persistent hypotension check echocardiogram. Continue attempts to wean off norepinephrine this morning. If unsuccessful may require stress dose steroid. Acute encephalopathy secondary to infection. Continue to reorient. She is anxious. Low-dose Ativan as needed for anxiety. Monitor response. Status: Acute (2) Septic arthritis of knee, left: Status post explantation of left knee hardware 09/30 and placement of antibiotic spacer. Continue IV antibiotics. Follow-up cultures. SA and GBS growing so far. Status: Acute Qualifiers: Septic arthritis organism: due to unspecified organism Qualified Cod e(s): M00.9 - Pyogenic arthritis, unspecified (3) Status post left knee replacement: Status: Acute (4) QIANA (acute kidney injury): QIANA on admission resolved. Monitor hemoglobin now given hypotension episodes. Hold losartan for now. Hold Lasix. Monitor urine output. Renal function. Avoid NSAIDs. Status: Acute (5) Current every day smoker: Encourage cessation. Status: Chronic (6) Coronary artery disease due to type 2 diabetes mellitus: Stenting in April, subsequently in June coronary angiography which showed some multifocal coronary disease, not requiring intervention. Continue aspirin, Plavix until at least if possible. Status: Acute (7) Chronic obstructive pulmonary disease, unspecified: Reports chronically on oxygen of 2 L. Currently appears at baseline. Does report some mild intermittent cough, intermittently productive. Some small airway inflammation noted on chest x-ray. Possibly mild COPD exacerbation. For now held off on steroids, but may need them for other reasons. Continue inhalers. Collect sputum culture. Rapid COVID-19 antigen test negative. Status: Acute Qualifiers: COPD type: unspecified COPD Qualified Code(s): J44.9 - Chronic obstructive pulmonary disease, unspecified (8) Essential hypertension: Monitor BPs Status: Chronic (9) Anemia: S/p 1 unit prbc. Recheck Hb tonight. On ASA, Brillinta. Continue for now. Check hemoccult. Status: Acute (10) Diabetes type 2, uncontrolled: Continue long-acting insulin. Sliding scale. If no lower BG values may tolerate moderate sliding scale. Status: Acute Qualifiers: Glycemic state: with hyperglycemia Qualified Code(s): E11.65 - Type 2 diabetes mellitus with hyperglycemia Additional A&P Information Alk phos elevation: possibly related to recent knee surgery. Normal GGT Acute on chronic leukocytosis Thrombocytosis Mild hyponatremia [place] Septic arthritis. Cultures are positive for MRSA and strep. Continue management with vancomycin. Aztreonam was added due to concerns of possible pneumonia. Will monitor leukocytosis. Hardware is removed, antibiotic spacers placed. I&D probably Tuesday. Anemia. Currently the patient is on dual antiplatelet therapy and Lovenox for DVT prophylaxis. We will check fecal occult blood test to rule out GI bleeding. Also will order the rest of the anemia work-up. Possible pneumonia versus atelectasis. Continue current antibiotics and incentive spirometry. Mobilization as much as possible provided limitations due to being in ICU and septic arthritis. Adrenal insufficiency? Was given single dose of steroids yesterday. Blood pressure is better today. However we would like to avoid steroids due to i nfection. We will start fludrocortisone or midodrine if hypotension persists. Hypotension. Probably multifactorial, secondary to above. Also will decrease the dose of Keppra and maintenance Dilaudid. We will continue adjusting the medications. Altered mental status. Probably multifactorial including acute metabolic encephalopathy secondary to above. Acute kidney injury. Resolved. Monitor. Coronary artery disease. Stable. Continue medications including dual antiplatelet therapy. COPD. No evidence of acute exacerbation Diabetes. Continue current management. Adjust insulin as needed. DVT prophylaxis. Currently on Lovenox. The plan of care was discussed with the patient and the multidisciplinary team. Also will discuss with the family when they arrive. 40 minutes are spent on this critical care case Attestations Medical Necessity Statement*: Still requires hospitalization in ICU settings due to the problems listed above. 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
--- NOTE | 2020-10-03 15:40 | PC.NURSE ---
New bed with pressure mattress in room. Pt transferred with Prevnar mat from [facility] mobility chair to bed. Pt incontinent of stool, even got on her knee brace. Pericare provided., Pt hitting staff during turning in the bed for sanitary care.
[2020-10-03 16:14] LABS: Folate Level 11.1 ng/mL (4.8-37.3)
[2020-10-03 16:15] LABS: Vitamin B12 353 pg/mL (232-1245)
[2020-10-03] MEDS: vancomycin 1,500 MG/300 ML PIGGYBACK 150 MG IV (17:32)
[2020-10-03 17:36] LABS: Glucose Point of Care 141 mg/dL (70-110)
[2020-10-03 17:57] LABS: Ferritin 389 ng/mL (15-150); Iron 14 ug/dL (37-145); Percent Saturation 8.2 % (20-50); Total Iron Binding Capacity 170 mcg/dl; Transferrin 138 mg/dL (200-360); Unsaturated Iron Binding 156 ug/dL (112-347)
--- NOTE | 2020-10-03 18:45 | PC.NURSE ---
Report given to IRAM Reina
--- NOTE | 2020-10-03 19:05 | PC.NURSE ---
Shift summary: Pt has been confused sleeping or yelling out for Mom . She has been out of be to bariatric chiar, she was slid over. She did cooperate with PT. PT and OT worked with her for a while. Her hair had a copious amount of tangles and knots, we combed that out and braided her hair. She has some hypotensive and hypertensive episodes. She has refused to eat or drink most everything today. SHe has been incontinent of stool twice. She hit staff while pericare was being provided. She refused her evening dilaudid . She has a pre admit pressure area on her right heel, her bottom has a pressure area. Her left lower leg reddened. Wound/incision cultured MRSA, she is on contact precautions. Urine ouput adequate but dark michelle: 700ml.
[2020-10-03] MEDS: levETIRAcetam 500 mg Tablet 1000 MG PO (20:00)
[2020-10-03] MEDS: quetiapine 25 mg Tablet 50 MG PO (20:00)
[2020-10-03] MEDS: atorvastatin 40 mg Tablet PO (20:04)
[2020-10-03 20:45] LABS: Glucose Point of Care 133 mg/dL (70-110)
[2020-10-03] MEDS: HYDROmorphone 1 mg/mL INJ 1 mL 1.5 MG IVP (21:32)
[2020-10-03] MEDS: enoxaparin 30 mg/0.3 mL Syringe SUBCUT (22:08)
[2020-10-04] VITALS (27 sets, daily range): BP systolic 92–165; BP diastolic 64–116; PULSE 91–102; RESP 14–29; TEMP 36.2–37; O2SAT 91–99; BMI 43.3
[2020-10-04] MEDS: HYDROmorphone 1 mg/mL INJ 1 mL 1.5 MG IVP ×10 (00:19→23:25)
[2020-10-04] MEDS: aztreonam 2,000 MG in sodium chloride 0.9% (plus) 100 ML 200 MG IV ×3 (03:07→19:35)
[2020-10-04] MEDS: vancomycin 1,500 MG/300 ML PIGGYBACK 150 MG IV ×2 (05:19→18:19)
[2020-10-04 07:30] LABS: Basophils # 0.1 10^3/uL (0.0-0.1); Basophils % 0.7 %; Eosinophils # 0.6 10^3/uL (0.0-0.8); Eosinophils % 3.6 %; Hemoglobin 8.5 g/dL (11.5-15.3); Lymphocytes # 3.5 10^3/uL (0.8-4.8); Lymphocytes % 21.4 %; Mean Corpuscular HGB Conc 29.3 g/dL (30.0-36.0); Mean Corpuscular Hemoglobin 25.9 pg (28.0-34.0); Mean Corpuscular Volume 88.4 fL (81-99); Mean Platelet Volume 9.5 fL (7.4-10.4); Monocytes # 1.5 10^3/uL (0.2-0.9); Monocytes % 9.3 %; Neutrophils # 9.73 10^3/uL (1.8-7.7); Nucleated Red Blood Cells # 0.1 /100WBC; Nucleated Red Blood Cells % 0.5 %; Platelet Count 946 10^3/cmm (130-400); Red Blood Count 3.28 10^6/uL (4.1-5.3); Red Cell Distribution Width 16.8 % (12.1-15.1); White Blood Count 16.5 10^3/uL (4.0-10.0)
[2020-10-04 07:58] LABS: Alanine Aminotransferase 27 U/L (0-33); Alkaline Phosphatase 106 IU/L (35-105); Aspartate Amino Transferase 37 U/L (0-32); Blood Urea Nitrogen 8 mg/dL (6-20); Calcium 8.9 mg/dL (8.5-10.5); Carbon Dioxide 18 mmol/L (22-29); Chloride 109 mmol/L (98-107); Globulin 3.9 g/dL (1.3-4.6); Glomerular Filtration Rate 129.1 mL/min (90-130); Glucose 121 mg/dL (65-115); Osmolality Calculated 290 mOsm/kg (285-295); Sodium 140 mmol/L (136-145); Total Bilirubin 0.2 mg/dL (0.15-1.2); Total Protein 5.9 g/dL (6.6-8.7)
[2020-10-04 08:03] LABS: Glucose Point of Care 139 mg/dL (70-110)
[2020-10-04] MEDS: aspirin 81 mg Chew Tablet PO (08:13)
[2020-10-04] MEDS: ticagrelor 90 mg Tablet PO ×2 (08:13→20:05)
[2020-10-04] MEDS: levETIRAcetam 500 mg Tablet 1000 MG PO ×2 (08:13→20:03)
[2020-10-04] MEDS: duloxetine 60 mg Capsule PO (08:13)
[2020-10-04] MEDS: pantoprazole DR 40 mg Tablet PO (08:13)
[2020-10-04] MEDS: ranolazine (12HR) 500 mg Tablet 1000 MG PO ×2 (08:14→20:04)
[2020-10-04] MEDS: topiramate 25 mg Tablet PO ×2 (08:14→20:04)
[2020-10-04] MEDS: albuterol 8 gm MDI 2 PUFF INHALATION ×2 (08:15→19:55)
[2020-10-04 08:31] LABS: Anion Gap 16.6 (5-19); Potassium 3.6 mmol/L (3.5-5.1)
[2020-10-04 09:05] LABS: Slide Review Slide Review Perform
[2020-10-04] MEDS: sennosides-docusate Tablet 2 TAB PO ×2 (10:08→17:12)
[2020-10-04] MEDS: iron sucrose 200 MG in sodium chloride 0.9% (100 ml) 100 ML 220 MG IV (10:11)
[2020-10-04] MEDS: cyanocobalamin 1,000 mcg/mL SDV 1000 MCG IM (10:25)
--- NOTE | 2020-10-04 11:10 | PC.SOCIAL ---
IMM Updated Page 2 of IMM updated and given to patient. Initialed, dated, and timed and placed back in chart.
[2020-10-04 11:44] LABS: Magnesium 1.4 mg/dL (1.7-2.3)
[2020-10-04 12:17] LABS: Glucose Point of Care 137 mg/dL (70-110)
--- NOTE | 2020-10-04 15:06 | PM.PN ---
Subjective Subjective: Interval history: Doing better today. Looks better. No acute distress. Responses are adequate. Head breakfast. Did not finish it but ate okay. Denies any acute complaints. Medications: Reviewed: Yes Medication Review Details: Generic Name Dose Route Start Last Admin Trade Name Freq PRN Reason Stop Dose Admin Acetaminophen 650 mg 09/29/20 19:25 09/30/20 01:05 Acetaminophen 32 5 Mg Tablet PO 650 mg Q6H PRN Administration Mild/Mod Pain Or Temp >/= 101 Albuterol Sulfate 2 puff 09/29/20 19:25 10/04/20 08:15 Albuterol 8 Gm M di INHALATION 2 puff QID PRN Administration shortness of zuri th or wheezing Aspirin 81 mg 09/30/20 08:00 10/04/20 08:13 Aspirin 81 Mg Ch ew Tablet PO 81 mg DAILY@08 YUSUF Administration Atorvastatin Calci um 40 mg 09/29/20 21:00 10/03/20 20:04 Atorvastatin 40 Mg Tablet PO 40 mg DAILY@21 YUSUF Administration Duloxetine HCl 60 mg 09/30/20 08:00 10/04/20 08:13 Duloxetine 60 Mg Capsule PO 60 mg DAILY@08 YUSUF Administration Enoxaparin Sodium 30 mg 10/01/20 23:00 10/03/20 22:08 Enoxaparin 30 Mg /0.3 Ml Syringe SUBCUT 30 mg Q24H YUSUF Administration Hydromorphone HCl 2 mg 10/03/20 17:00 10/04/20 13:50 Hydromorphone 4 Mg Tablet PO 2 mg QID YUSUF Administration Hydromorphone HCl 1.5 mg 10/03/20 21:20 10/04/20 11:46 Hydromorphone 1 Mg/Ml Inj 1 Ml IVP 1.5 mg Q2H PRN Administration PAIN Aztreonam 2,000 mg / Sodium 100 mls @ 200 mls /hr 09/30/20 01:00 10/04/20 13:45 Chloride IV 200 mls/hr Q8H YUSUF Administration Protocol Sodium Chloride 1,000 mls @ 100 m ls/hr 09/30/20 22:22 10/02/20 18:10 Sodium Chloride 0.9% IV 100 mls/hr .Q10H YUSUF Administration Norepinephrine Bit artrate 4 mg 254 mls @ 0 mls/h r 10/01/20 09:15 10/03/20 04:31 / Dextrose IV Infused .Q0M YUSUF Titration Protocol Per Protocol Vancomycin/PEG/NAD A/Lysine/Water 1,500 mg in 300 m ls @ 250 mls/hr 10/02/20 18:00 10/04/20 05:19 Vancocin IV 150 mls/hr Q12H YUSUF Administration Insulin Aspart 0 unit 09/29/20 21:00 10/04/20 13:43 Insulin Aspart 1 00 Unit/1 Ml SUBCUT Not Given WM&BEDTIME YUSUF Protocol Insulin Detemir 10 unit 09/30/20 08:00 10/04/20 08:10 Insulin Detemir 100 Units/1 Ml SUBCUT 10 unit DAILY@08 YUSUF Administration Levetiracetam 1,000 mg 10/03/20 21:00 10/04/20 08:13 Levetiracetam 50 0 Mg Tablet PO 1,000 mg BID@ YUSUF Administration Lorazepam 0.5 mg 10/02/20 08:36 10/03/20 01:02 Lorazepam 2 Mg/M l Inj 1 Ml IVP 0.5 mg Q4H PRN Administration ANXIETY Pantoprazole Sodiu m 40 mg 09/30/20 08:00 10/04/20 08:[address] 40 Mg Tablet PO 40 mg DAILY@08 YUSUF Administration Quetiapine Fumarat e 50 mg 09/29/20 21:00 10/03/20 20:00 Quetiapine 25 Mg Tablet PO 50 mg BEDTIME@ YUSUF Administration Ranolazine 1,000 mg 09/29/20 21:00 10/04/20 08:14 Ranolazine (12hr ) 500 Mg Tablet PO 1,000 mg BID@ YUSUF Administration Fluticasone/Salmet odette 1 puff 09/29/20 20:00 10/04/20 08:15 Fluticasone-Salm eterol 500-50 Disk us INHALATION 1 puff Q12H YUSUF Administration Senna/Docusate Sod ium 2 tab 10/01/20 09:00 10/04/20 10:08 Sennosides-Docus ate Tablet PO 2 tab BID YUSUF Administration Ticagrelor 90 mg 09/29/20 21:00 10/04/20 08:13 Ticagrelor 90 Mg Tablet PO 90 mg BID@ YUSUF Administration Topiramate 25 mg 09/29/20 21:00 10/04/20 08:14 Topiramate 25 Mg Tablet PO 25 mg BID@, YUSUF Administration Tramadol HCl 50 mg 09/29/20 19:25 10/01/20 03:58 Tramadol 50 Mg T ablet PO 50 mg Q6H PRN Administration pain Vitals/I&O/Wt Last Vital Signs Temp 97.7 F 10/04/20 12:00 Pulse 101 H 10/04/20 14:00 Resp 18 10/04/20 13:50 BP 138/116 10/04/20 12:00 Pulse Ox 97 10/04/20 13:50 10/04/20 10/04/20 10/04/20 06:59 14:59 22:59 Intake Total 100 / 1200 300 / 300 Output Total 1650 / 2350 Balance -1550 / -1150 300 / 300 Weight last 48 hrs Weight 118.07 kg Weight 123.332 kg Physical Exam Narrative: EXAM NARRATIVE: Awake and alert. No acute distress. Responses are adequate. Skin is warm and dry. Moist extremities. Neck supple. No JVD Lungs clear. No respiratory distress Heart S1, S2, regular Abdomen soft, obese, nontender, bowel sounds are present Extremities bilateral pedal edema. No cyanosis no calf tenderness bilaterally. No focal muscle weakness Urinary Catheter Management^: [place]: Cath Placed During This Visit: yes, but has since been removed by the nurse Reason for Continuing Indwelling Catheter: Accurate Measurement of Urinary Output in Critically Ill Patients Urinary Catheter Date of Insertion: 09/30/20 Urinary Catheter Time of Insertion: 00:30 Date Urinary Catheter Removed: 10/01/20 Time Urinary Catheter Discontinued: 06:34 Data : 10/04/20 05:05 10/04/20 05:05 Micro: Microbiology 09/30/20 19:40 Gram Stain - Final Knee - Left Anaerobic Culture - Preliminary Wound Culture - Final Methicillin Resis Staph Aureus 10/03/20 15:50 Occult Blood (FIT) - Final Stool Routine Collection 09/29/20 17:22 Gram Stain - Final Synovial Fluid Body Fluid Culture - Final Methicillin Resis Staph Aureus Strep agalactiae - (group b) A&P Assessment and plan (1) Hypotension: Persistent hypotension. Weaned down slightly on pressor, but continues to require norepinephrine. This morning at 3.5 mcg. Mean atrial pressure is 70-77. Attempting to taper down further. Joint aspiration culture growing Staph aureus, strep agalactiae. Continues on vancomycin. Aztreonam. Vancomycin level is a little bit better at 12.5. Discussed with pharmacy vancomycin dose will be adjusted for a bit more aggressive therapy. Target level 15-20. Monitor levels and renal function. She is in positive balance. Had decent response to PRBC transfusion. Recheck hemoglobin level. Today she is noting some chest pain which appears to be musculoskeletal and/or pleuritic. Will check troponin EKG series. Chest x-ray. With persistent hypotension check echocardiogram. Continue attempts to wean off norepinephrine this morning. If unsuccessful may require stress dose steroid. Acute encephalopathy secondary to infection. Continue to reorient. She is anxious. Low-dose Ativan as needed for anxiety. Monitor response. Status: Acute (2) Septic arthritis of knee, left: Status post explantation of left knee hardware 09/30 and placement of antibiotic spacer. Continue IV antibiotics. Follow-up cultures. SA and GBS growing so far. Status: Acute Qualifiers: Septic arthritis organism: due to unspecified organism Qualified Code(s): M00.9 - Pyogenic arthritis, unspecified (3) Status post left knee replacement: Status: Acute (4) QIANA (acute kidney injury): QIANA on admission resolved. Monitor hemoglobin now given hypotension episodes. Hold losartan for now. Hold Lasix. Monitor urine output. Renal function. Avoid NSAIDs. Status: Acute (5) Current every day smoker: Encourage cessation. Status: Chronic (6) Coronary artery disease due to type 2 diabetes mellitus: Stenting in April, subsequently in June coronary angiography which showed some multifocal coronary disease, not requiring intervention. Continue aspirin, Plavix until at least if possible. Status: Acute (7) Chronic obstructive pulmonary disease, unspecified: Reports chronically on oxygen of 2 L. Currently appears at baseline. Does report some mild intermittent cough, intermittently productive. Some small airway inflammation noted on chest x-ray. Possibly mild COPD exacerbation. For now held off on steroids, but may need them for other reasons. Continue inhalers. Collect sputum culture. Rapid COVID-19 antigen test negative. Status: Acute Qualifiers: COPD type: unspecified COPD Qualified Code(s): J44.9 - Chronic obstructive pulmonary disease, unspecified (8) Essential hypertension: Monitor BPs Status: Chronic (9) Anemia: S/p 1 unit prbc. Recheck Hb tonight. On ASA, Brillinta. Continue for now. Check hemoccult. Status: Acute (10) Diabetes type 2, uncontrolled: Continue long-acting insulin. Sliding scale. If no lower BG values may tolerate moderate sliding scale. Status: Acute Qualifiers: Glycemic state: with hyperglycemia Qualified Code(s): E11.65 - Type 2 diabetes mellitus with hyperglycemia Additional A&P Information Hypotension: Persistent hypotension. Weaned down slightly on pressor, but continues to require norepinephrine. This morning at 3.5 mcg. Mean atrial pressure is 70-77. Attempting to taper down further. Joint aspiration culture growing Staph aureus, strep agalactiae. Continues on vancomycin. Aztreonam. Vancomycin level is a little bit better at 12.5. Discussed with pharmacy vancomycin dose will be adjusted for a bit more aggressive therapy. Target level 15-20. Monitor levels and renal function. She is in positive balance. Had decent response to PRBC transfusion. Recheck hemoglobin level. Today she is noting some chest pain which appears to be musculoskeletal and/or pleuritic. Will check troponin EKG series. Chest x-ray. With persistent hypotension check echocardiogram. Continue attempts to wean off norepinephrine this morning. If unsuccessful may require stress dose steroid. Acute encephalopathy secondary to infection. Continue to reorient. She is anxious. Low-dose Ativan as needed for anxiety. Monitor response. Status: Acute (2) Septic arthritis of knee, left: Status post explantation of left knee hardware 09/30 and placement of antibiotic spacer. Continue IV antibiotics. Follow-up cultures. SA and GBS growing so far. Status: Acute Qualifiers: Septic arthritis organism: due to unspecified organism Qualified Code(s): M00.9 - Pyogenic arthritis, unspecified (3) Status post left knee replacement: Status: Acute (4) QIANA (acute kidney injury): QIANA on admission resolved. Monitor hemoglobin now given hypotension episodes. Hold losartan for now. Hold Lasix. Monitor urine output. Renal function. Avoid NSAIDs. Status: Acute (5) Current every day smoker: Encourage cessation. Status: Chronic (6) Coronary artery disease due to type 2 diabetes mellitus: Stenting in April, subsequently in June coronary angiography which showed some multifocal coronary disease, not requiring intervention. Continue aspirin, Plavix until at least if possible. Status: Acute (7) Chronic obstructive pulmonary disease, unspecified: Reports chronically on oxygen of 2 L. Currently appears at baseline. Does report some mild intermittent cough, intermittently productive. Some small airway inflammation noted on chest x-ray. Possibly mild COPD exacerbation. For now held off on steroids, but may need them for other reasons. Continue inhalers. Collect sputum culture. Rapid COVID-19 antigen test negative. Status: Acute Qualifiers: COPD type: unspecified COPD Qualified Code(s): J44.9 - Chronic obstructive pulmonary disease, unspecified (8) Essential hypertension: Monitor BPs Status: Chronic (9) Anemia: S/p 1 unit prbc. Recheck Hb tonight. On ASA, Brillinta. Continue for now. Check hemoccult. Status: Acute (10) Diabetes type 2, uncontrolled: Continue long-acting insulin. Sliding scale. If no lower BG values may tolerate moderate sliding scale. Status: Acute Qualifiers: Glycemic state: with hyperglycemia Qualified Code(s): E11.65 - Type 2 diabetes mellitus with hyperglycemia Additional A&P Information Alk phos elevation: possibly related to recent knee surgery. Normal GGT Acute on chronic leukocytosis Thrombocytosis Mild hyponatremia [place] Septic arthritis. Cultures are positive for MRSA and strep. Continue management with vancomycin. Aztreonam was added due to concerns of possible pneumonia. Will monitor leukocytosis. Hardware is removed, antibiotic spacers placed. I&D probably Tuesday. Anemia. Currently the patient is on dual antiplatelet therapy and Lovenox for DVT prophylaxis. Fecal occult blood testing is negative. Has iron, folic acid and B12 borderline low levels. Will start replacement. Possible pneumonia versus atelectasis. Continue current antibiotics and incentive spirometry. Mobilization as much as possible provided limitations due to being in ICU and septic arthritis. Adrenal insufficiency? Was given single dose of steroids yesterday. Blood pressure is better today. However we would like to avoid steroids due to infection. We will start fludrocortisone or midodrine if hypotension persists. Hypotension. Probably multifactorial, secondary to above. Also will decrease the dose of Keppra and maintenance Dilaudid. We will continue adjusting the medications. Altered mental status. Probably multifactorial including acute metabolic encephalopathy secondary to above. Decrease the dose of Keppra. Probably this contributed to some improvement of her mental status. Will consider new changes depending on the progress Acute kidney injury. Resolved. Monitor. Coronary artery disease. Stable. Continue medications including dual antiplatelet therapy. COPD. No evidence of acute exacerbation Diabetes. Continue current management. Adjust insulin as needed. DVT prophylaxis. Currently on Lovenox. Discussed with the multidisciplinary team and the patient. He verbalized understanding and agreement. Attestations Medical Necessity Statement*: The plan of care requires inpatient hospitalization. Surgery is planned for Tuesday. 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
[2020-10-04 17:27] LABS: Glucose Point of Care 165 mg/dL (70-110)
--- NOTE | 2020-10-04 17:43 | P.PN_ITS ---
Subjective Subjective: Interval history: Patient seen today with mother at bedside. More awake and alert but still has intermittent periods of confusion. Pain currently under adequate control but patient still states pain is an issue. Vitals/I&O/Wt Last Vital Signs Temp 97.2 F L 10/04/20 16:00 Pulse 97 10/04/20 16:00 Resp 21 H 10/04/20 16:00 BP 96/64 10/04/20 16:00 Pulse Ox 94 10/04/20 16:00 10/04/20 10/04/20 10/04/20 06:59 14:59 22:59 Intake Total 100 / 1200 300 / 300 Output Total 1650 / 2350 Balance -1550 / -1150 300 / 300 Weight last 48 hrs Weight 260 lb 4.8 oz Weight 271 lb 14.4 oz Physical Exam Narrative: EXAM NARRATIVE: Left knee straight today. Dressing saturated inferiorly with bloody drainage. Much less erythema knee and calf. Expected swelling thigh and calf. Moves toes left foot sensation intact to light touch. Urinary Catheter Management^: [place]: Cath Placed During This Visit: yes, but has since been removed by the nurse Reason for Continuing Indwelling Catheter: Accurate Measurement of Urinary Output in Critically Ill Patients Urinary Catheter Date of Insertion: 09/30/20 Urinary Catheter Time of Insertion: 00:30 Date Urinary Catheter Removed: 10/01/20 Time Urinary Catheter Discontinued: 06:34 Data : 10/04/20 05:05 10/04/20 05:05 Micro: Microbiology 09/29/20 15:36 Blood Culture - Final Blood NO GROWTH AFTER 5 DAYS 09/30/20 19:40 Gram Stain - Final Knee - Left Anaerobic Culture - Preliminary Wound Culture - Final Methicillin Resis Staph Aureus 10/03/20 15:50 Occult Blood (FIT) - Final Stool Routine Collection A&P Assessment and plan (1) Status post left knee replacement: Status: Acute (2) Septic arthritis of knee, left: Patient still with quite a bit of drainage from left knee and white blood cell count slow to improve. Fortunately Ms. Ascencio has significant medical comorbidities and infection will be very difficult to eliminate. In addition to being overweight with large amounts of space about her knee she is diabetic. She also has a history of chronic pain and medical management of her pain will be difficult. I discussed the severity of the problem with the family. I told her I will continue to do everything possible to provide her with a functioning knee replacement. I would think we should go back to the operating room 1 day for second irrigation and debridement. I told the family if this does not work we may consider removing all the implants and proceeding toward an arthrodesis. With her history of chronic pain, her rehabilitation will be difficult. The family also is insistent on her going back home and I am not certain that environment that she will get all of the care she needs despite her family's best intention. 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
[2020-10-04] MEDS: atorvastatin 40 mg Tablet PO (20:04)
[2020-10-04] MEDS: quetiapine 25 mg Tablet 50 MG PO (20:04)
[2020-10-04 21:03] LABS: Glucose Point of Care 123 mg/dL (70-110)
[2020-10-04] MEDS: LORazepam 2 mg/mL INJ 1 mL 0.5 MG IVP (21:23)
[2020-10-05] VITALS (19 sets, daily range): BP systolic 99–162; BP diastolic 56–108; PULSE 90–107; RESP 16–31; TEMP 36.1–37; O2SAT 71–97
[2020-10-05] MEDS: LORazepam 2 mg/mL INJ 1 mL 0.5 MG IVP ×2 (01:13→20:53)
[2020-10-05] MEDS: HYDROmorphone 1 mg/mL INJ 1 mL 1.5 MG IVP ×3 (01:13→06:11)
[2020-10-05] MEDS: HYDROmorphone 1 mg/mL INJ 1 mL IVP (02:35)
[2020-10-05] MEDS: lidocaine 1% INJ 20 mL INJECTION (02:35)
[2020-10-05] MEDS: OLANZapine 10 mg VIAL IM (03:13)
[2020-10-05] MEDS: LORazepam 2 mg/mL INJ 1 mL IVP (03:14)
--- NOTE | 2020-10-05 03:24 | PC.NURSE ---
Addendum entered by Latosha Carlson RN 10/05/20 07:02: When Dr. Cunha was questioned about holding the antibiotics (because the pt is admitted for sepsis), stated that they should be held and that day shift could deal with/worry about the problem of having no IV access. Original Note: PT UPDATE Pt IV access became positional. ED RN consulted to place new IV using ultrasound. RN unable to place new line. Dr. Cunha consulted and attempted a central line. Pt became uncontrollable with movements and anxiety. Ativan, zyprexa, and dilaudid were given to calm patient for procedure. Dr. Cunha was unable to place central line. New orders were received to hold antibiotics and to add IM orders for ativan and dilaudid PRN. suggested dayshift insert a PICC
[2020-10-05 03:51] LABS: Basophils # 0.1 10^3/uL (0.0-0.1); Basophils % 0.9 %; Eosinophils % 6.2 %; Hematocrit 28.3 % (37.0-47.0); Hemoglobin 8.5 g/dL (11.5-15.3); Lymphocytes # 2.9 10^3/uL (0.8-4.8); Lymphocytes % 18.1 %; Mean Corpuscular Hemoglobin 25.9 pg (28.0-34.0); Mean Corpuscular Volume 86.3 fL (81-99); Mean Platelet Volume 8.8 fL (7.4-10.4); Monocytes # 1.5 10^3/uL (0.2-0.9); Monocytes % 9.2 %; Neutrophils # 9.09 10^3/uL (1.8-7.7); Neutrophils % 57.5 %; Nucleated Red Blood Cells # 0.1 /100WBC; Nucleated Red Blood Cells % 0.4 %; Platelet Count 931 10^3/cmm (130-400); Red Blood Count 3.28 10^6/uL (4.1-5.3); Red Cell Distribution Width 16.4 % (12.1-15.1); White Blood Count 15.8 10^3/uL (4.0-10.0)
[2020-10-05] MEDS: aztreonam 2,000 MG in sodium chloride 0.9% (plus) 100 ML 200 MG IV ×3 (04:08→20:39)
[2020-10-05 04:17] LABS: Alanine Aminotransferase 24 U/L (0-33); Albumin Level 2.2 g/dL (3.5-5.2); Alkaline Phosphatase 96 IU/L (35-105); Anion Gap 13.1 (5-19); Aspartate Amino Transferase 22 U/L (0-32); Blood Urea Nitrogen 7 mg/dL (6-20); Calcium 8.9 mg/dL (8.5-10.5); Carbon Dioxide 18 mmol/L (22-29); Chloride 108 mmol/L (98-107); Globulin 3.8 g/dL (1.3-4.6); Glucose 166 mg/dL (65-115); Magnesium 1.4 mg/dL (1.7-2.3); Osmolality Calculated 284 mOsm/kg (285-295); Phosphorus 3.7 mg/dL (2.5-4.5); Potassium 3.1 mmol/L (3.5-5.1); Sodium 136 mmol/L (136-145); Total Bilirubin 0.2 mg/dL (0.15-1.2)
[2020-10-05] MEDS: vancomycin 1,500 MG/300 ML PIGGYBACK 150 MG IV ×2 (05:00→17:28)
[2020-10-05] MEDS: albuterol 8 gm MDI 2 PUFF INHALATION ×2 (07:56→20:05)
[2020-10-05] MEDS: folic acid 1 mg Tablet PO (08:46)
[2020-10-05] MEDS: duloxetine 60 mg Capsule PO (08:46)
[2020-10-05] MEDS: pantoprazole DR 40 mg Tablet PO (08:46)
[2020-10-05] MEDS: magnesium sulfate premix 2 GM/50 ML PIGGYBACK IV (08:46)
[2020-10-05] MEDS: aspirin 81 mg Chew Tablet PO (08:46)
[2020-10-05] MEDS: cyanocobalamin 1,000 mcg/mL SDV 1000 MCG IM (08:46)
[2020-10-05] MEDS: potassium chloride oral liq 20 mEq/15 mL UDC 40 MEQ PO (08:46)
[2020-10-05 08:47] LABS: Glucose Point of Care 120 mg/dL (70-110)
[2020-10-05] MEDS: ticagrelor 90 mg Tablet PO ×2 (08:47→20:35)
[2020-10-05] MEDS: ranolazine (12HR) 500 mg Tablet 1000 MG PO ×2 (08:47→20:41)
[2020-10-05] MEDS: topiramate 25 mg Tablet PO ×2 (08:53→20:37)
[2020-10-05] MEDS: iron sucrose 200 MG in sodium chloride 0.9% (100 ml) 100 ML 220 MG IV (09:53)
--- NOTE | 2020-10-05 10:00 | PC.OT ---
OT tx attempted. Pt is sleeping soundly. Nursing reports pt had been medicated earlier for procedure. ORNELAS to attempt tx again later today if possible.
--- NOTE | 2020-10-05 11:37 | PM.PN ---
Subjective Subjective: Interval history: The patient was a little aggressive last night. Received lorazepam and Zyprexa. Currently asleep. No acute distress. Refusing to open her eyes. No respiratory distress. Chills. No nausea or vomiting Vitals/I&O/Wt Last Vital Signs Temp 97.2 F L 10/04/20 16:00 Pulse 105 H 10/05/20 08:06 Resp 16 10/05/20 08:05 BP 113/70 10/05/20 04:00 Pulse Ox 93 10/05/20 08:05 10/04/20 10/05/20 10/05/20 22:59 06:59 14:59 Intake Total 760 / 1460 210 / 1670 460 / 460 Output Total 1000 / 1000 1400 / 2400 Balance -240 / 460 -1190 / -730 460 / 460 Weight last 48 hrs Weight 118.07 kg Physical Exam Narrative: EXAM NARRATIVE: Sleeping. No acute distress. Responses are adequate. Skin is warm and dry. Moist extremities. Neck supple. No JVD Lungs clear. No respiratory distress Heart S1, S2, regular Abdomen soft, obese, nontender, bowel sounds are present Extremities bilateral pedal edema. No cyanosis no calf tenderness bilaterally. No focal muscle weakness Urinary Catheter Management^: [place]: Cath Placed During This Visit: yes, but has since been removed by the nurse Reason for Continuing Indwelling Catheter: Accurate Measurement of Urinary Output in Critically Ill Patients Urinary Catheter Date of Insertion: 09/30/20 Urinary Catheter Time of Insertion: 00:30 Date Urinary Catheter Removed: 10/01/20 Time Urinary Catheter Discontinued: 06:34 Data : 10/05/20 03:30 10/05/20 03:30 Micro: Microbiology 09/29/20 21:07 Blood Culture - Final Blood NO GROWTH AFTER 5 DAYS 09/29/20 15:36 Blood Culture - Final Blood NO GROWTH AFTER 5 DAYS 09/30/20 19:40 Gram Stain - Final Knee - Left Anaerobic Culture - Preliminary Wound Culture - Final Methicillin Resis Staph Aureus A&P Assessment and plan (1) Hypotension: Persistent hypotension. Weaned down slightly on pressor, but continues to require norepinephrine. This morning at 3.5 mcg. Mean atrial pressure is 70-77. Attempting to taper down further. Joint aspiration culture growing Staph aureus, strep agalactiae. Continues on vancomycin. Aztreonam. Vancomycin level is a little bit better at 12.5. Discussed with pharmacy vancomycin dose will be adjusted for a bit more aggressive therapy. Target level 15-20. Monitor levels and renal function. She is in positive balance. Had decent response to PRBC transfusion. Recheck hemoglobin level. Today she is noting some chest pain which appears to be musculoskeletal and/or pleuritic. Will check troponin EKG series. Chest x-ray. With persistent hypotension check echocardiogram. Continue attempts to wean off norepinephrine this morning. If unsuccessful may require stress dose steroid. Acute encephalopathy secondary to infection. Continue to reorient. She is anxious. Low-dose Ativan as needed for anxiety. Monitor response. Status: Acute (2) Septic arthritis of knee, left: Status post explantation of left knee hardware 09/30 and placement of antibiotic spacer. Continue IV antibiotics. Follow-up cultures. SA and GBS growing so far. Status: Acute Qualifiers: Septic arthritis organism: due to unspecified organism Qualified Code(s): M00.9 - Pyogenic arthritis, unspecified (3) Status post left knee replacement: Status: Acute (4) QIANA (acute kidney injury): QIANA on admission resolved. Monitor hemoglobin now given hypotension episodes. Hold losartan for now. Hold Lasix. Monitor urine output. Renal function. Avoid NSAIDs. Status: Acute (5) Current every day smoker: Encourage cessation. Status: Chronic (6) Coronary artery disease due to type 2 diabetes mellitus: Stenting in April, subsequently in June coronary angiography which showed some multifocal coronary disease, not requiring intervention. Continue aspirin, Plavix until at least if possible. Status: Acute (7) Chronic obstructive pulmonary disease, unspecified: Reports chronically on oxygen of 2 L. Currently appears at baseline. Does report some mild intermittent cough, intermittently productive. Some small airway inflammation noted on chest x-ray. Possibly mild COPD exacerbation. For now held off on steroids, but may need them for other reasons. Continue inhalers. Collect sputum culture. Rapid COVID-19 antigen test negative. Status: Acute Qualifiers: COPD type: unspecified COPD Qualified Code(s): J44.9 - Chronic obstructive pulmonary disease, unspecified (8) Essential hypertension: Monitor BPs Status: Chronic (9) Anemia: S/p 1 unit prbc. Recheck Hb tonight. On ASA, Brillinta. Continue for now. Check hemoccult. Status: Acute (10) Diabetes type 2, uncontrolled: Continue long-acting insulin. Sliding scale. If no lower BG values may tolerate moderate sliding scale. Status: Acute Qualifiers: Glycemic state: with hyperglycemia Qualified Code(s): E11.65 - Type 2 diabetes mellitus with hyperglycemia Additional A&P Information Hypotension: Persistent hypotension. Weaned down slightly on pressor, but continues to require norepinephrine. This morning at 3.5 mcg. Mean atrial pressure is 70-77. Attempting to taper down further. Joint aspiration culture growing Staph aureus, strep agalactiae. Continues on vancomycin. Aztreonam. Vancomycin level is a little bit better at 12.5. Discussed with pharmacy vancomycin dose will be adjusted for a bit more aggressive therapy. Target level 15-20. Monitor levels and renal function. She is in positive balance. Had decent response to PRBC transfusion. Recheck hemoglobin level. Today she is noting some chest pain which appears to be musculoskeletal and/or pleuritic. Will check troponin EKG series. Chest x-ray. With persistent hypotension check echocardiogram. Continue attempts to wean off norepinephrine this morning. If unsuccessful may require stress dose steroid. Acute encephalopathy secondary to infection. Continue to reorient. She is anxious. Low-dose Ativan as needed for anxiety. Monitor response. Status: Acute (2) Septic arthritis of knee, left: Status post explantation of left knee hardware 09/30 and placement of antibiotic spacer. Continue IV antibiotics. Follow-up cultures. SA and GBS growing so far. Status: Acute Qualifiers: Septic arthritis organism: due to unspecified organism Qualified Code(s): M00.9 - Pyogenic arthritis, unspecified (3) Status post left knee replacement: Status: Acute (4) QIANA (acute kidney injury): QIANA on admission resolved. Monitor hemoglobin now given hypotension episodes. Hold losartan for now. Hold Lasix. Monitor urine output. Renal function. Avoid NSAIDs. Status: Acute (5) Current every day smoker: Encourage cessation. Status: Chronic (6) Coronary artery disease due to type 2 diabetes mellitus: Stenting in April, subsequently in June coronary angiography which showed some multifocal coronary disease, not requiring intervention. Continue aspirin, Plavix until at least if possible. Status: Acute (7) Chronic obstructive pulmonary disease, unspecified: Reports chronically on oxygen of 2 L. Currently appears at baseline. Does report some mild intermittent cough, intermittently productive. Some small airway inflammation noted on chest x-ray. Possibly mild COPD exacerbation. For now held off on steroids, but may need them for other reasons. Continue inhalers. Collect sputum culture. Rapid COVID-19 antigen test negative. Status: Acute Qualifiers: COPD type: unspecified COPD Qualified Code(s): J44.9 - Chronic obstructive pulmonary disease, unspecified (8) Essential hypertension: Monitor BPs Status: Chronic (9) Anemia: S/p 1 unit prbc. Recheck Hb tonight. On ASA, Brillinta. Continue for now. Check hemoccult. Status: Acute (10) Diabetes type 2, uncontrolled: Continue long-acting insulin. Sliding scale. If no lower BG values may tolerate moderate sliding scale. Status: Acute Qualifiers: Glycemic state: with hyperglycemia Qualified Code(s): E11.65 - Type 2 diabetes mellitus with hyperglycemia Additional A&P Information Alk phos elevation: possibly related to recent knee surgery. Normal GGT Acute on chronic leukocytosis Thrombocytosis Mild hyponatremia [place] Septic arthritis. Cultures are positive for MRSA and strep. Continue management with vancomycin. Aztreonam was added due to concerns of possible pneumonia. Will monitor leukocytosis. Hardware is removed, antibiotic spacers placed. I&D probably Tuesday. Anemia. Overall stable. Currently the patient is on dual antiplatelet therapy and Lovenox for DVT prophylaxis. Fecal occult blood testing is negative. Has iron, folic acid and B12 borderline low levels. Replacing. Possible pneumonia versus atelectasis. Continue current antibiotics and incentive spirometry. Mobilization as much as possible provided limitations due to being in ICU and septic arthritis. Adrenal insufficiency? Blood pressure stable, at acceptable range. We would like to avoid steroids due to infection. Can start fludrocortisone or midodrine if hypotension persists. Hypotension. Probably multifactorial, secondary to above. Also will decrease the dose of Keppra and maintenance Dilaudid. We will continue adjusting the medications. Altered mental status. Probably multifactorial including acute metabolic encephalopathy secondary to above. Decrease the dose of Keppra. Probably this contributed to some improvement of her mental status. Will consider new changes depending on the progress Acute kidney injury. Resolved. Monitor. Hypokalemia and hypomagnesemia. Replace and monitor Coronary artery disease. Stable. Continue medications including dual antiplatelet therapy. COPD. No evidence of acute exacerbation Diabetes. Continue current management. Adjust insulin as needed. DVT prophylaxis. Currently on Lovenox. We will hold it today in preparation for her probable procedure tomorrow Discussed with the multidisciplinary team and the patient. He verbalized understanding and agreement. Attestations Medical Necessity Statement*: Still requires antibiotics and close monitoring. I&D probably tomorrow. 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
[2020-10-05 11:50] LABS: Glucose Point of Care 170 mg/dL (70-110)
--- NOTE | 2020-10-05 12:55 | PC.OT ---
OT tx attempted again for second time. Pt still sleeping soundly and did not wake for lunch. OT services on hold for today secondary to pt being medicated.
[2020-10-05 17:16] LABS: Glucose Point of Care 132 mg/dL (70-110)
--- NOTE | 2020-10-05 17:53 | PM.PN ---
Subjective Subjective: Interval history: Looking better tonight. Awake and alert. Seen with father at bedside Vitals/I&O/Wt Last Vital Signs Temp 98.6 F 10/05/20 12:00 Pulse 91 10/05/20 16:00 Resp 23 H 10/05/20 16:00 BP 131/67 10/05/20 16:00 Pulse Ox 95 10/05/20 16:00 10/05/20 10/05/20 10/05/20 06:59 14:59 22:59 Intake Total 210 / 1670 560 / 560 Output Total 1400 / 2400 1550 / 1550 Balance -1190 / -730 -990 / -990 Weight last 48 hrs Weight 260 lb 4.8 oz Physical Exam Narrative: EXAM NARRATIVE: Less drainage left knee. No erythema. Still very painful with motion Urinary Catheter Management^: [place]: Cath Placed During This Visit: yes, but has since been removed by the nurse Reason for Continuing Indwelling Catheter: Accurate Measurement of Urinary Output in Critically Ill Patients Urinary Catheter Date of Insertion: 09/30/20 Urinary Catheter Time of Insertion: 00:30 Date Urinary Catheter Removed: 10/01/20 Time Urinary Catheter Discontinued: 06:34 Data : 10/05/20 03:30 10/05/20 03:30 Micro: Microbiology 09/30/20 19:40 Gram Stain - Final Knee - Left Anaerobic Culture - Preliminary Wound Culture - Final Methicillin Resis Staph Aureus 09/29/20 21:07 Blood Culture - Final Blood NO GROWTH AFTER 5 DAYS 09/29/20 15:36 Blood Culture - Final Blood NO GROWTH AFTER 5 DAYS A&P Assessment and plan (1) Septic arthritis of knee, left: Status: Acute Qualifiers: Septic arthritis organism: due to unspecified organism Qualified Code(s): M00.9 - Pyogenic arthritis, unspecified (2) Status post left knee replacement: I discussed her treatment plan with the patient's father. I made him aware as well that with her diabetes will be immunocompromise and it will be difficult to eradicate the infection. She still has a bit more drainage that I would like. Her white blood cell count has not normalized. I am thinking we will go to the operating room tomorrow for repeat aggressive irrigation and debridement. If we are unable to control the infection with mobile spacers in place we will need to consider arthrodesis. Her father seemed to understand the magnitude of the issue. They expressed understanding that they had family members and known people with diabetic infections and even went on to amputation. They are in agreement with our plan. 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
--- NOTE | 2020-10-05 17:55 | PC.NURSE ---
Pt allowed herself to be repositioned in the bed. She even attempted to help. Her mother scolded her prior and told her not to hit or be mean.
--- NOTE | 2020-10-05 18:14 | PC.NURSE ---
Shift summary: Pt had been drowsy and lethargic this am. She slept through lunch and 1300 Dilaudid tablet, snoring respirations noted. She was kept repositioned and turned with turn cycle on bed. She would occasionally cough and sneeze throughout the afternnon. Right had IV patent and meds infused without difficulty. dad her at visiting time, pt alert, cheeks pink, conversation making sense. She was incontinent of BM , she was able to help turn herself more today, although she did cry some because it hurt, she still made a good effort. [address] Verma in, pt is going for follow up surgery on her left knee tomorrow ( Oct 06). Consents obtained for PICC line placement due difficulty obtaining peripheral IV access.
[2020-10-05 18:47] LABS: Vancomycin Trough 20.1 ug/mL (10-15)
--- NOTE | 2020-10-05 19:13 | PC.NURSE ---
Report given to IRAM Mccauley.
[2020-10-05] MEDS: atorvastatin 40 mg Tablet PO (20:34)
[2020-10-05] MEDS: quetiapine 25 mg Tablet 50 MG PO (20:36)
[2020-10-05] MEDS: levETIRAcetam 500 mg Tablet 750 MG PO (20:36)
[2020-10-05] MEDS: HYDROmorphone 1 mg/mL INJ 1 mL 0.5 MG IVP (20:52)
--- NOTE | 2020-10-05 21:58 | PC.NURSE ---
IV Vanco in room wa cnnected to patient and not running. Patient's vanco trough level was 20.1. verified with pharmacy, held dose at this time. medication scanned as infusing. medication not infusing and discontinued
[2020-10-06] VITALS (28 sets, daily range): BP systolic 100–159; BP diastolic 57–102; PULSE 84–114; RESP 16–28; TEMP 36.6–36.9; O2SAT 91–100
[2020-10-06] MEDS: vancomycin 1,500 MG/300 ML PIGGYBACK 250 MG IV (02:45)
[2020-10-06 04:46] LABS: Basophils # 0.1 10^3/uL (0.0-0.1); Basophils % 0.8 %; Eosinophils # 1.2 10^3/uL (0.0-0.8); Eosinophils % 8.7 %; Hematocrit 28.1 % (37.0-47.0); Hemoglobin 8.4 g/dL (11.5-15.3); Lymphocytes # 3.5 10^3/uL (0.8-4.8); Mean Corpuscular HGB Conc 29.9 g/dL (30.0-36.0); Mean Corpuscular Hemoglobin 26.1 pg (28.0-34.0); Mean Corpuscular Volume 87.3 fL (81-99); Mean Platelet Volume 8.8 fL (7.4-10.4); Monocytes # 1.4 10^3/uL (0.2-0.9); Monocytes % 10.4 %; Neutrophils % 46.6 %; Nucleated Red Blood Cells % 0.3 %; Platelet Count 1191 10^3/cmm (130-400); Red Blood Count 3.22 10^6/uL (4.1-5.3); Red Cell Distribution Width 16.8 % (12.1-15.1); White Blood Count 13.5 10^3/uL (4.0-10.0)
[2020-10-06] MEDS: aztreonam 2,000 MG in sodium chloride 0.9% (plus) 100 ML 200 MG IV ×3 (04:50→20:14)
[2020-10-06 05:03] LABS: Albumin Level 2.3 g/dL (3.5-5.2); Anion Gap 13.5 (5-19); Blood Urea Nitrogen 5 mg/dL (6-20); Calcium 8.3 mg/dL (8.5-10.5); Carbon Dioxide 18 mmol/L (22-29); Chloride 113 mmol/L (98-107); Glucose 106 mg/dL (65-115); Magnesium 1.8 mg/dL (1.7-2.3); Phosphorus 3.2 mg/dL (2.5-4.5); Potassium 3.5 mmol/L (3.5-5.1); Sodium 141 mmol/L (136-145)
[2020-10-06 05:19] LABS: Glucose Point of Care 174 mg/dL (70-110)
[2020-10-06 05:24] LABS: Slide Review Slide Review Perform
[2020-10-06 08:22] LABS: Glucose Point of Care 117 mg/dL (70-110)
[2020-10-06] MEDS: albuterol 8 gm MDI 2 PUFF INHALATION ×2 (08:33→20:34)
[2020-10-06] MEDS: HYDROmorphone 1 mg/mL INJ 1 mL 0.5 MG IVP ×4 (08:43→23:25)
--- NOTE | 2020-10-06 09:35 | PC.CHAP ---
Pastoral Care Encounter/Spiritual Assessment Type of Contact [] Declined third loader visit [] Patient/Family/Request visit [] Outpatient visit [] Follow-up visit [] Physician referral [] Code/Alert [] Routine visit [] Staff referral [] Actively dying [] Patient sleeping [] Family support [] [] Out of room [] Palliative care [] [] Receiving care in room [] Pre-surgical visit [] Trauma [] Long length of stay [x] ICU visit [] Other: Relational/Emotional Strength [] Patient feels connected with others/family/visitors/staff [] Distress [] Loneliness/isolation [] Abandonment Spirituality of Patient [] Person of Mary [] Attends Jewish of their Mary [] Believes in Prayer [] Reads Bible or Taoism materials [] There are Spiritual issues to be addressed Print Line Inspector Interventions [x] Prayer [] Active listening [] Non-anxious presence [] Spiritual/emotional support [] Crisis/trauma care [] Spiritual counseling [] Bereavement support [] Provided bereavement packet [] Provided Bible/devotional materials [] Provided toy/stuffed animal, coloring book to patient or family member [] Provided Communion [] Anointing/[place] [] Salvation [x] Completed spiritual assessment [] Other: Impact on Illness or Injury [] Angry [] Fearful [] Anxious [] Often cries [] Exhaustion [] Unable to work [] Unable to attend sabianism [] Unable to walk/stand [] Unable to read [] Unable to drive [] Unable to eat/drink [] Unable to sleep [] Unable to be with family [] Patient intubated [] Other: Summary Time spent with patient
[2020-10-06 10:23] LABS: C Reactive Protein 67.7 mg/L (0.0-4.9)
--- NOTE | 2020-10-06 10:50 | PC.OT ---
OT tx attempted. Pt getting picc line at this time and is going to surgery afterward. OT tx to be on hold today.
--- NOTE | 2020-10-06 10:56 | PM.PN ---
Subjective Subjective: Interval history: Day. More awake and alert. Denies any active complaints. Denies uncontrolled pain. No fevers or chills. No nausea or vomiting. Had couple of loose stools. Medications: Reviewed: Yes Medication Review Details: Generic Name Dose Route Start Last Admin Trade Name Freq PRN Reason Stop Dose Admin Acetaminophen 650 mg 09/29/20 19:25 09/30/20 01:05 Acetaminophen 32 5 Mg Tablet PO 650 mg Q6H PRN Administration Mild/Mod Pain Or Temp >/= 101 Albuterol Sulfate 2 puff 09/29/20 19:25 10/06/20 08:33 Albuterol 8 Gm M di INHALATION 2 puff QID PRN Administration shortness of zuri th or wheezing Aspirin 81 mg 09/30/20 08:00 10/06/20 09:56 Aspirin 81 Mg Ch ew Tablet PO Not Given DAILY@08 [facility] Atorvastatin Calci um 40 mg 09/29/20 21:00 10/05/20 20:34 Atorvastatin 40 Mg Tablet PO 40 mg DAILY@21 [facility] Administration Duloxetine HCl 60 mg 09/30/20 08:00 10/06/20 09:56 Duloxetine 60 Mg Capsule PO Not Given DAILY@08 [facility] Folic Acid 1 mg 10/05/20 09:00 10/06/20 09:57 Folic Acid 1 Mg Tablet PO Not Given DAILY [facility] Hydromorphone HCl 2 mg 10/03/20 17:00 10/06/20 09:57 Hydromorphone 4 Mg Tablet PO Not Given QID [facility] Hydromorphone HCl 0.5 mg 10/05/20 11:44 10/06/20 08:43 Hydromorphone 1 Mg/Ml Inj 1 Ml IVP 0.5 mg Q4H PRN Administration PAIN Aztreonam 2,000 mg / Sodium 100 mls @ 200 mls /hr 09/30/20 01:00 10/06/20 07:16 Chloride IV Infused Q8H [facility] Infusion Protocol Sodium Chloride 1,000 mls @ 100 m ls/hr 09/30/20 22:22 10/02/20 18:10 Sodium Chloride 0.9% IV 100 mls/hr .Q10H YUSUF Administration Norepinephrine Bit artrate 4 mg 254 mls @ 0 mls/h r 10/01/20 09:15 10/03/20 04:31 / Dextrose IV Infused .Q0M [facility] Titration Protocol Per Protocol Vancomycin/PEG/NAD A/Lysine/Water 1,500 mg in 300 m ls @ 250 mls/hr 10/06/20 02:00 10/06/20 07:17 Vancocin IV Infused Q18H [facility] Infusion Insulin Aspart 0 unit 09/29/20 21:00 10/06/20 09:55 Insulin Aspart 1 00 Unit/1 Ml SUBCUT Not Given WM&BEDTIME [facility] Protocol Insulin Detemir 10 unit 09/30/20 08:00 10/06/20 09:57 Insulin Detemir 100 Units/1 Ml SUBCUT Not Given DAILY@08 [facility] Levetiracetam 750 mg 10/05/20 21:00 10/06/20 09:55 Levetiracetam 50 0 Mg Tablet PO Not Given BID@ [facility] Pantoprazole Sodiu m 40 mg 09/30/20 08:00 10/06/20 09:[address] 40 Mg Tablet PO Not Given DAILY@08 [facility] Quetiapine Fumarat e 50 mg 09/29/20 21:00 10/05/20 20:36 Quetiapine 25 Mg Tablet PO 50 mg BEDTIME@21 [facility] Administration Ranolazine 1,000 mg 09/29/20 21:00 10/06/20 09:56 Ranolazine (12hr ) 500 Mg Tablet PO Not Given BID@ [facility] Fluticasone/Salmet odette 1 puff 09/29/20 20:00 10/06/20 08:33 Fluticasone-Salm eterol 500-50 Disk us INHALATION 1 puff Q12H [facility] Administration Ticagrelor 90 mg 09/29/20 21:00 10/06/20 09:56 Ticagrelor 90 Mg Tablet PO Not Given BID@ [facility] Topiramate 25 mg 09/29/20 21:00 10/06/20 09:56 Topiramate 25 Mg Tablet PO Not Given BID@ [facility] Tramadol HCl 50 mg 09/29/20 19:25 10/01/20 03:58 Tramadol 50 Mg T ablet PO 50 mg Q6H PRN Administration pain Vitals/I&O/Wt Last Vital Signs Temp 98.4 F 10/06/20 08:00 Pulse 95 10/06/20 09:00 Resp 22 H 10/06/20 09:00 BP 159/87 10/06/20 09:00 Pulse Ox 96 10/06/20 09:00 10/05/20 10/06/20 10/06/20 22:59 06:59 14:59 Intake Total 580 / 1140 400 / 400 Output Total 525 / 2075 950 / 3025 375 / 375 Balance 55 / -935 -950 / -1885 25 / 25 Weight last 48 hrs Weight 118.297 kg Physical Exam Narrative: EXAM NARRATIVE: Sleeping. No acute distress. Responses are adequate. Skin is warm and dry. Moist extremities. Neck supple. No JVD Lungs clear. No respiratory distress Heart S1, S2, regular Abdomen soft, obese, nontender, bowel sounds are present Extremities bilateral pedal edema. No cyanosis no calf tenderness bilaterally. No focal muscle weakness Urinary Catheter Management^: [place]: Cath Placed During This Visit: yes, but has since been removed by the nurse Reason for Continuing Indwelling Catheter: Accurate Measurement of Urinary Output in Critically Ill Patients Urinary Catheter Date of Insertion: 09/30/20 Urinary Catheter Time of Insertion: 00:30 Date Urinary Catheter Removed: 10/01/20 Time Urinary Catheter Discontinued: 06:34 Data : 10/06/20 04:21 10/06/20 04:21 Micro: Microbiology 09/30/20 19:40 Gram Stain - Final Knee - Left Anaerobic Culture - Preliminary Wound Culture - Final Methicillin Resis Staph Aureus A&P Assessment and plan (1) Hypotension: Persistent hypotension. Weaned down slightly on pressor, but continues to require norepinephrine. This morning at 3.5 mcg. Mean atrial pressure is 70-77. Attempting to taper down further. Joint aspiration culture growing Staph aureus, strep agalactiae. Continues on vancomycin. Aztreonam. Vancomycin level is a little bit better at 12.5. Discussed with pharmacy vancomycin dose will be adjusted for a bit more aggressive therapy. Target level 15-20. Monitor levels and renal function. She is in positive balance. Had decent response to PRBC transfusion. Recheck hemoglobin level. Today she is noting some chest pain which appears to be musculoskeletal and/or pleuritic. Will check troponin EKG series. Chest x-ray. With persistent hypotension check echocardiogram. Continue attempts to wean off norepinephrine this morning. If unsuccessful may require stress dose steroid. Acute encephalopathy secondary to infection. Continue to reorient. She is anxious. Low-dose Ativan as needed for anxiety. Monitor response. Status: Acute (2) Septic arthritis of knee, left: Status post explantation of left knee hardware 09/30 and placement of antibiotic spacer. Continue IV antibiotics. Follow-up cultures. SA and GBS growing so far. Status: Acute Qualifiers: Septic arthritis organism: due to unspecified organism Qualified Code(s): M00.9 - Pyogenic arthritis, unspecified (3) Status post left knee replacement: Status: Acute (4) QIANA (acute kidney injury): QIANA on admission resolved. Monitor hemoglobin now given hypotension episodes. Hold losartan for now. Hold Lasix. Monitor urine output. Renal function. Avoid NSAIDs. Status: Acute (5) Current every day smoker: Encourage cessation. Status: Chronic (6) Coronary artery disease due to type 2 diabetes mellitus: Stenting in April, subsequently in June coronary angiography which showed some multifocal coronary disease, not requiring intervention. Continue aspirin, Plavix until at least if possible. Status: Acute (7) Chronic obstructive pulmonary disease, unspecified: Reports chronically on oxygen of 2 L. Currently appears at baseline. Does report some mild intermittent cough, intermittently productive. Some small airway inflammation noted on chest x-ray. Possibly mild COPD exacerbation. For now held off on steroids, but may need them for other reasons. Continue inhalers. Collect sputum culture. Rapid COVID-19 antigen test negative. Status: Acute Qualifiers: COPD type: unspecified COPD Qualified Code(s): J44.9 - Chronic obstructive pulmonary disease, unspecified (8) Essential hypertension: Monitor BPs Status: Chronic (9) Anemia: S/p 1 unit prbc. Recheck Hb tonight. On ASA, Brillinta. Continue for now. Check hemoccult. Status: Acute (10) Diabetes type 2, uncontrolled: Continue long-acting insulin. Sliding scale. If no lower BG values may tolerate moderate sliding scale. Status: Acute Qualifiers: Glycemic state: with hyperglycemia Qualified Code(s): E11.65 - Type 2 diabetes mellitus with hyperglycemia Additional A&P Information Hypotension: Persistent hypotension. Weaned down slightly on pressor, but continues to require norepinephrine. This morning at 3.5 mcg. Mean atrial pressure is 70-77. Attempting to taper down further. Joint aspiration culture growing Staph aureus, strep agalactiae. Continues on vancomycin. Aztreonam. Vancomycin level is a little bit better at 12.5. Discussed with pharmacy vancomycin dose will be adjusted for a bit more aggressive therapy. Target level 15-20. Monitor levels and renal function. She is in positive balance. Had decent response to PRBC transfusion. Recheck hemoglobin level. Today she is noting some chest pain which appears to be musculoskeletal and/or pleuritic. Will check troponin EKG series. Chest x-ray. With persistent hypotension check echocardiogram. Continue attempts to wean off norepinephrine this morning. If unsuccessful may require stress dose steroid. Acute encephalopathy secondary to infection. Continue to reorient. She is anxious. Low-dose Ativan as needed for anxiety. Monitor response. Status: Acute (2) Septic arthritis of knee, left: Status post explantation of left knee hardware 09/30 and placement of antibiotic spacer. Continue IV antibiotics. Follow-up cultures. SA and GBS growing so far. Status: Acute Qualifiers: Septic arthritis organism: due to unspecified organism Qualified Code(s): M00.9 - Pyogenic arthritis, unspecified (3) Status post left knee replacement: Status: Acute (4) QIANA (acute kidney injury): QIANA on admission resolved. Monitor hemoglobin now given hypotension episodes. Hold losartan for now. Hold Lasix. Monitor urine output. Renal function. Avoid NSAIDs. Status: Acute (5) Current every day smoker: Encourage cessation. Status: Chronic (6) Coronary artery disease due to type 2 diabetes mellitus: Stenting in April, subsequently in June coronary angiography which showed some multifocal coronary disease, not requiring intervention. Continue aspirin, Plavix until at least if possible. Status: Acute (7) Chronic obstructive pulmonary disease, unspecified: Reports chronically on oxygen of 2 L. Currently appears at baseline. Does report some mild intermittent cough, intermittently productive. Some small airway inflammation noted on chest x-ray. Possibly mild COPD exacerbation. For now held off on steroids, but may need them for other reasons. Continue inhalers. Collect sputum culture. Rapid COVID-19 antigen test negative. Status: Acute Qualifiers: COPD type: unspecified COPD Qualified Code(s): J44.9 - Chronic obstructive pulmonary disease, unspecified (8) Essential hypertension: Monitor BPs Status: Chronic (9) Anemia: S/p 1 unit prbc. Recheck Hb tonight. On ASA, Brillinta. Continue for now. Check hemoccult. Status: Acute (10) Diabetes type 2, uncontrolled: Continue long-acting insulin. Sliding scale. If no lower BG values may tolerate moderate sliding scale. Status: Acute Qualifiers: Glycemic state: with hyperglycemia Qualified Code(s): E11.65 - Type 2 diabetes mellitus with hyperglycemia Additional A&P Information Alk phos elevation: possibly related to recent knee surgery. Normal GGT Acute on chronic leukocytosis Thrombocytosis Mild hyponatremia [place] Septic arthritis. Cultures are positive for MRSA and strep. Continue management with vancomycin. Aztreonam was added due to concerns of possible pneumonia. Leukocytosis is improving but the platelets are continuing going up. Hardware is removed, antibiotic spacers placed. Will undergo I&D today. Anemia. Overall stable. Currently the patient is on dual antiplatelet therapy and Lovenox for DVT prophylaxis. Fecal occult blood testing is negative. Has iron, folic acid and B12 borderline low levels. Replacing. Possible pneumonia versus atelectasis. Continue current antibiotics and incentive spirometry. Mobilization as much as possible provided limitations due to being in ICU and septic arthritis. Adrenal insufficiency? Blood pressure stable, at acceptable range. We would like to avoid steroids due to infection and diabetes. Can start fludrocortisone or midodrine if develops hypotension. Hypotension. Resolved. Altered mental status. Probably multifactorial including acute metabolic encephalopathy secondary to above. Improved significantly. I suspect it was at least partly related to medications, particularly Keppra. Improved with reducing the dose of Keppra. Acute kidney injury. Resolved. Monitor. Hypokalemia and hypomagnesemia. Replace and monitor Coronary artery disease. Stable. Continue medications including dual antiplatelet therapy. COPD. No evidence of acute exacerbation Diabetes. Continue current management. Adjust insulin as needed. DVT prophylaxis. Lovenox is on hold for the surgery. We will resume when it is okay from the surgical standpoint. Discussed with the multidisciplinary team and the patient. He verbalized understanding and agreement. Attestations Medical Necessity Statement*: Patient remains hospitalized for management of septic arthritis. Will need time for recovery from the surgery and for IV antibiotics. Coding Level of Care Code Acute Graphic Artist for Nahed Alcazar Diagnoses Hypotension I95.9 Septic arthritis of knee, left M00.9 Septic arthritis organism: due to unspecified organism Status post left knee replacement Z96.652 QIANA (acute kidney injury) N17.9 Current every day smoker F17.200 Coronary artery disease due to type 2 diabetes mellitus E11.59; I25.10 Chronic obstructive pulmonary disease, unspecified J44.9 COPD type: unspecified COPD Essential hypertension I10 Anemia D64.9 Diabetes type 2, uncontrolled E11.65 Glycemic state: with hyperglycemia
--- NOTE | 2020-10-06 11:27 | XRR_ITS ---
PROCEDURE INFORMATION: Exam: XR Chest, 1 View Exam date and time: 10/06/2020 11:45 AM Age: 55 years old Clinical indication: Device placement; Picc; Additional info: Picc placement TECHNIQUE: Imaging protocol: XR of the chest Views: 1 view. COMPARISON: CR XR chest 1V portable [id number] 10/03/2020 5:26 AM FINDINGS: Tubes, catheters and devices: A PICC line is seen on the left side extending to the right atrium Lungs: Unremarkable. No consolidation. Pleural space: Unremarkable. No pleural effusion. No pneumothorax. Heart/Mediastinum: Unremarkable. No cardiomegaly. Bones/joints: Unremarkable. XR/XR chest 1V portable [id number] IMPRESSION: 1. No acute findings. 2. Left side PICC line in the right atrium
[2020-10-06 12:06] LABS: Glucose Point of Care 119 mg/dL (70-110)
[2020-10-06] MEDS: potassium chloride premix 100 ML 25 MEQ IV (15:12)
--- NOTE | 2020-10-06 15:12 | P.ANESASSM_ITS ---
Pre-Anesthetic Assessment Pre-Anesthetic Assessment: Height/Weight: Height 1.65 m Weight 118.297 kg Temp Pulse Resp BP Pulse Ox 98.5 F 92 22 H 132/79 100 10/06/20 12:00 10/06/20 12:00 10/06/20 13:49 10/06/20 12:00 10/06/20 13:49 Preop Diagnosis: Deep infection left total knee Proposed Procedure: Operation Date: 09/30/20 15:10 Proposed Procedures p Hardware Removal Knee(Left) - Vj Verma MD Operation Date: 10/06/20 12:10 Proposed Procedures p Incision & Drainage left knee w/ poly exchange(Left) - Vj Verma MD Was Beta Jose L taken within 24 hours: Yes Social: Social History: No alcohol and No tobacco Exam: Pre-Anes Outpt Exam: alert, oriented x 3, clear to auscultation bilaterally and regular rate & rhythm Airway: Submandibular: WNL Cervical ROM: WNL MP: 2 Dentition: False Pulmonary: Pulmonary: COPD CV/HEM: CV/HEM: Anemia and CHF : : None reported Hepatic: Hepatic: None reported GI: GI: GERD Metabolic: Metabolic: DM and Morbid obesity Musc/skel: Musc/skel: OA/DJD Neuropsych: Neuropsych: Bipolar and Neuropathy Anesthetic Plan: ASA status: 3 Anesthesia: General Risk of > 500 ml blood loss (7ml/kg in children): No Meds/Allergies Current Medications: Current Medications Generic Name Dose Route Start Last Admin Trade Name Freq PRN Reason Stop Dose Admin Acetaminophen 650 mg 09/29/20 19:25 09/30/20 01:05 Acetaminophen 32 5 Mg Tablet PO 650 mg Q6H PRN Administration Mild/Mod Pain Or Temp >/= 101 Albuterol Sulfate 2 puff 09/29/20 19:25 10/06/20 08:33 Albuterol 8 Gm M di INHALATION 2 puff QID PRN Administration shortness of zuri th or wheezing Aspirin 81 mg 09/30/20 08:00 10/06/20 09:56 Aspirin 81 Mg Ch ew Tablet PO Not Given DAILY@08 [facility] Atorvastatin Calci um 40 mg 09/29/20 21:00 10/05/20 20:34 Atorvastatin 40 Mg Tablet PO 40 mg DAILY@ [facility] Administration Duloxetine HCl 60 mg 09/30/20 08:00 10/06/20 09:56 Duloxetine 60 Mg Capsule PO Not Given DAILY@08 [facility] Folic Acid 1 mg 10/05/20 09:00 10/06/20 09:57 Folic Acid 1 Mg Tablet PO Not Given DAILY [facility] Hydromorphone HCl 2 mg 10/03/20 17:00 10/06/20 13:03 Hydromorphone 4 Mg Tablet PO Not Given QID [facility] Hydromorphone HCl 0.5 mg 10/05/20 11:44 10/06/20 13:49 Hydromorphone 1 Mg/Ml Inj 1 Ml IVP 0.5 mg Q4H PRN Administration PAIN Aztreonam 2,000 mg / Sodium 100 mls @ 200 mls /hr 09/30/20 01:00 10/06/20 13:48 Chloride IV 200 mls/hr Q8H YUSUF Administration Protocol Sodium Chloride 1,000 mls @ 100 m ls/hr 09/30/20 22:22 10/02/20 18:10 Sodium Chloride 0.9% IV 100 mls/hr .Q10H YUSUF Administration Norepinephrine Bit artrate 4 mg 254 mls @ 0 mls/h r 10/01/20 09:15 10/03/20 04:31 / Dextrose IV Infused .Q0M [facility] Titration Protocol Per Protocol Vancomycin/PEG/NAD A/Lysine/Water 1,500 mg in 300 m ls @ 250 mls/hr 10/06/20 02:00 10/06/20 07:17 Vancocin IV Infused Q18H YUSUF Infusion Insulin Aspart 0 unit 09/29/20 21:00 10/06/20 13:01 Insulin Aspart 1 00 Unit/1 Ml SUBCUT Not Given WM&BEDTIME [facility] Protocol Insulin Detemir 10 unit 09/30/20 08:00 10/06/20 09:57 Insulin Detemir 100 Units/1 Ml SUBCUT Not Given DAILY@08 [facility] Levetiracetam 750 mg 10/05/20 21:00 10/06/20 09:55 Levetiracetam 50 0 Mg Tablet PO Not Given BID@ [facility] Pantoprazole Sodiu m 40 mg 09/30/20 08:00 10/06/20 09:[address] 40 Mg Tablet PO Not Given DAILY@08 [facility] Quetiapine Fumarat e 50 mg 09/29/20 21:00 10/05/20 20:36 Quetiapine 25 Mg Tablet PO 50 mg BEDTIME@21 [facility] Administration Ranolazine 1,000 mg 09/29/20 21:00 10/06/20 09:56 Ranolazine (12hr ) 500 Mg Tablet PO Not Given BID@, [facility] Fluticasone/Salmet odette 1 puff 09/29/20 20:00 10/06/20 08:33 Fluticasone-Salm eterol 500-50 Disk us INHALATION 1 puff Q12H YUSUF Administration Ticagrelor 90 mg 09/29/20 21:00 10/06/20 09:56 Ticagrelor 90 Mg Tablet PO Not Given BID@, [facility] Topiramate 25 mg 09/29/20 21:00 10/06/20 09:56 Topiramate 25 Mg Tablet PO Not Given BID@08, [facility] Tramadol HCl 50 mg 09/29/20 19:25 10/01/20 03:58 Tramadol 50 Mg T ablet PO 50 mg Q6H PRN Administration pain PFSH Anesthesia PFSH: Medical History (Updated 10/01/20 @ 09:19 by Avila Marie MD) Atherosclerotic heart disease of [place] coronary artery with unspecified angina pectoris Chest pain, midsternal Chronic congestive heart failure Chronic left-sided low back pain Chronic obstructive pulmonary disease, unspecified Chronic pain of left knee Congestive heart failure Current every day smoker CVA (cerebral vascular accident) Dyslipidemia Encounter for long-term opiate analgesic use Essential hypertension Fibromyalgia Fibromyalgia, primary Hyperlipidemia, mixed Insomnia Intervertebral disc disorder of lumbar region with myelopathy Low back pain radiating to both legs Lumbosacral spondylosis without myelopathy NSTEMI (non-ST elevated myocardial infarction) Thought to be secondary to plaque rupture. Angiogram July 04 no flow- limiting lesions, or restenosis of previous stent from April 2020 Opioid contract exists Osteoarthritis of spine at multiple levels Type 2 diabetes mellitus with diabetic autonomic (poly)neuropathy Vitamin D deficiency Surgical History History of arthroscopic surgery of elbow BILATERAL History of coronary angiogram Angiogram April 2020 with 90% circumflex lesion, drug-eluting stent placed by Dr. Jerome S/p bilateral carpal tunnel release S/P hysterectomy S/P knee surgery RIGHT S/P lumbar fusion DR. Shreya ZAYAS [place] L4-L5, L5-S1 Status post lumbar laminectomy Family History Other CAD (coronary artery disease) Cancer Diabetes Social History Smoking and tobacco status: current every day smoker cigarettes [ Other cigarette details: PER PATIENT REPORT ] Second hand smoke exposure: Yes Smoking risk assessment/counseling performed?: Yes Alcohol intake: former Desire information about alcohol rehabilitation?: No Counseling given: No Desire information about substance/drug rehabilitation?: No Counseling given: No Caregiver/support person: No Lives independently: Yes Household members: family and other Details: son Housing: Manufactured/Mobile home Marital status: Unknown Marital status details: She and son state she is not service: No Current occupational status: unemployed Pets and animals: Yes History of recent travel: No Current gender identity: Female Data Anesthesia CBC & Chem 7: 10/06/20 04:21 10/06/20 04:21 Other Labs: Laboratory Results - last 48 hr 10/04/20 10/04/20 10/05/20 17:11 21:01 03:30 WBC 15.8 H RBC 3.28 L Hgb 8.5 L Hct 28.3 L MCV 86.3 MCH 25.9 L MCHC 30.0 RDW 16.4 H Plt Count 931 H MPV 8.8 Neut % (Auto) 57.5 Lymph % (Auto) 18.1 [place] % (Auto) 9.2 Eos % (Auto) 6.2 Baso % (Auto) 0.9 Neut # (Auto) 9.09 H Lymph # (Auto) 2.9 [place] # (Auto) 1.5 H Eos # (Auto) 1.0 H Baso # (Auto) 0.1 Nucleated RBC % (auto) 0.4 Nucleated RBCs # 0.1 Sodium Potassium Chloride Carbon Dioxide Anion Gap BUN Creatinine GFR Calculation Glucose POC Glucose 165 H 123 H Calculated Osmolality Calcium Phosphorus Magnesium Total Bilirubin AST ALT Alkaline Phosphatase C-Reactive Protein Total Protein Albumin Globulin Vancomycin Trough 10/05/20 10/05/20 10/05/20 03:30 08:35 11:48 WBC RBC Hgb Hct MCV MCH MCHC RDW Plt Count MPV Neut % (Auto) Lymph % (Auto) [place] % (Auto) Eos % (Auto) Baso % (Auto) Neut # (Auto) Lymph # (Auto) [place] # (Auto) Eos # (Auto) Baso # (Auto) Nucleated RBC % (auto) Nucleated RBCs # Sodium 136 Potassium 3.1 L Chloride 108 H Carbon Dioxide 18 L Anion Gap 13.1 BUN 7 Creatinine 0.4 L GFR Calculation 167.0 H Glucose 166 H POC Glucose 120 H 170 H Calculated Osmolality 284 L Calcium 8.9 Phosphorus 3.7 Magnesium 1.4 L Total Bilirubin 0.2 AST 22 ALT 24 Alkaline Phosphatase 96 C-Reactive Protein Total Protein 6.0 L Albumin 2.2 L Globulin 3.8 Vancomycin Trough 10/05/20 10/05/20 10/05/20 17:00 17:56 20:45 WBC RBC Hgb Hct MCV MCH MCHC RDW Plt Count MPV Neut % (Auto) Lymph % (Auto) [place] % (Auto) Eos % (Auto) Baso % (Auto) Neut # (Auto) Lymph # (Auto) [place] # (Auto) Eos # (Auto) Baso # (Auto) Nucleated RBC % (auto) Nucleated RBCs # Sodium Potassium Chloride Carbon Dioxide Anion Gap BUN Creatinine GFR Calculation Glucose POC Glucose 132 H 174 H Calculated Osmolality Calcium Phosphorus Magnesium Total Bilirubin AST ALT Alkaline Phosphatase C-Reactive Protein Total Protein Albumin Globulin Vancomycin Trough 20.1 H 10/06/20 10/06/20 10/06/20 04:21 04:21 04:21 WBC 13.5 H RBC 3.22 L Hgb 8.4 L Hct 28.1 L MCV 87.3 MCH 26.1 L MCHC 29.9 L RDW 16.8 H Plt Count 1191 H MPV 8.8 Neut % (Auto) 46.6 Lymph % (Auto) 26.0 [place] % (Auto) 10.4 Eos % (Auto) 8.7 Baso % (Auto) 0.8 Neut # (Auto) 6.30 Lymph # (Auto) 3.5 [place] # (Auto) 1.4 H Eos # (Auto) 1.2 H Baso # (Auto) 0.1 Nucleated RBC % (auto) 0.3 Nucleated RBCs # 0.0 Sodium 141 Potassium 3.5 Chloride 113 H Carbon Dioxide 18 L Anion Gap 13.5 BUN 5 L Creatinine 0.4 L GFR Calculation 167.0 H Glucose 106 POC Glucose Calculated Osmolality Calcium 8.3 L Phosphorus 3.2 Magnesium 1.8 Total Bilirubin AST ALT Alkaline Phosphatase C-Reactive Protein 67.7 H Total Protein Albumin 2.3 L Globulin Vancomycin Trough 10/06/20 10/06/20 08:20 12:05 WBC RBC Hgb Hct MCV MCH MCHC RDW Plt Count MPV Neut % (Auto) Lymph % (Auto) [place] % (Auto) Eos % (Auto) Baso % (Auto) Neut # (Auto) Lymph # (Auto) [place] # (Auto) Eos # (Auto) Baso # (Auto) Nucleated RBC % (auto) Nucleated RBCs # Sodium Potassium Chloride Carbon Dioxide Anion Gap BUN Creatinine GFR Calculation Glucose POC Glucose 117 H 119 H Calculated Osmolality Calcium Phosphorus Magnesium Total Bilirubin AST ALT Alkaline Phosphatase C-Reactive Protein Total Protein Albumin Globulin Vancomycin Trough Micro: Microbiology 09/30/20 19:40 Gram Stain - Final Knee - Left Anaerobic Culture - Preliminary Wound Culture - Final Methicillin Resis Staph Aureus Cardiac Studies: No Data to Display
--- NOTE | 2020-10-06 15:30 | PC.NURSE ---
Surgery staff came to take patient fro debridement procedure. Report given. Patient has been NPO all day. Newly placed picc line in left arm.
[2020-10-06] MEDS: vancomycin 1,000 MG SDV 4000 MG XX (16:40)
[2020-10-06] MEDS: vancomycin 1,000 MG SDV 1000 MG XX (16:42)
[2020-10-06] MEDS: tranexamic acid 1,000 mg/10mL SDV 2000 MG IRRIGATION (16:47)
--- NOTE | 2020-10-06 17:50 | PM.OP ---
Operative Report Date of procedure: October 06, 2020 Pre-op Diagnosis: Deep infection left total knee Post-op diagnosis: same Post-op Findings: Same Procedure Done: Exchange of antibiotic spacers left knee, irrigation debrided Implants: DePuy Sigma size 3 left posterior stabilized cemented femoral component, DePuy size 310 mm thickness rotating platform tibial insert, Simplex cement with 4 additional grams vancomycin added, Stimulan 10cc of 5 mm bioabsorbable beads with 1 g vancomycin Pathology: Routine and anaerobic cultures Surgeon: Vj Verma Anesthesia: General Estimated blood loss (mL): 200 Tourniquet time (min): 82 Complications: None Findings: The patient had sanguine fluid within the knee joint and the subcutaneous tissues mainly along the anterior incision Condition: stable Disposition: PACU Procedure: Procedure: The patient was taken to the operating room. She was given vancomycin on the floor and no additional perioperative antibiotics were given. She was prepped and draped in the supine position with a tourniquet on the left thigh. A timeout was performed. The tourniquet was inflated to 300 mm due to the size of her leg. Initially a scalpel was used to remove stitches and open the previous incision and dissection was carried down to the extensor retinaculum. Vicryl sutures removed with the knee being entered through a medial parapatellar approach. Deep routine and anaerobic cultures were obtained. Initially a tamp was used to loosen the femoral component. The extractor handle was placed on the femur and it was gently elevated. There was some cavitary bone loss adjacent to the intercondylar notch medially.. Next an osteotome was used to elevate the tibial polyethylene. Cement was removed from the tibia utilizing an oscillating saw. A rongeur was used to remove cement within the tibial canal and around the previous peg holes. . Next aggressive debridement was accomplished removing all hematoma and small amounts of tissue of marginal viability. The knee was then irrigated with 6 L of saline. On the back table 1 batch of Simplex cement was mixed with 4 g of vancomycin. Once the cement reached a doughy texture the femoral component and plastic a tibial component were loosely cemented into place to provide a articulating antibiotic spacer. 10 cc of Stimulan BioSorb will granules were made by the addition of 1 g of vancomycin. These were placed in the posterior knee, medial lateral gutters, and suprapatellar pouch. The extensor retinaculum was closed with 0 Vicryl. The skin was closed with vertical mattress 1 and 0 Prolene. Xeroflo gauze, 4 x 4's, ABD pads, compressive web roll and Aaron wrap were applied. The patient was extubated and taken to the recovery room in stable condition.
--- NOTE | 2020-10-06 18:07 | PC.SOCIAL ---
IMM Not Given IMM not given as patient is in surgery.
[2020-10-06] MEDS: fentaNYL 50 mcg/mL INJ 2mL IVP ×2 (18:12→18:31)
--- NOTE | 2020-10-06 18:51 | ANE.PACU2 ---
Inpatient post-anesthesia follow up: Airway intact: Yes Vital signs: Temperature 98.5 F Pulse Rate [Monito r Apical] 106 Pulse Rate 92 Respiratory Rate 18 Blood Pressure 132/79 Pulse Oximetry 96 Oxygen Delivery Me thod Room Air Oxygen Flow Rate 2 Fraction of Inspir ed Oxygen Hydration adequate: Yes Nausea and vomiting: No Pain level: 3 Additional Comments: Sedated
[2020-10-06 19:25] LABS: Glucose Point of Care 204 mg/dL (70-110)
[2020-10-06 20:00] LABS: Glucose Point of Care 208 mg/dL (70-110)
[2020-10-06] MEDS: atorvastatin 40 mg Tablet PO (20:08)
[2020-10-06] MEDS: ticagrelor 90 mg Tablet PO (20:09)
[2020-10-06] MEDS: acetaminophen 325 mg Tablet 650 MG PO (20:09)
[2020-10-06] MEDS: quetiapine 25 mg Tablet 50 MG PO (20:10)
[2020-10-06] MEDS: topiramate 25 mg Tablet PO (20:11)
[2020-10-06] MEDS: levETIRAcetam 500 mg Tablet 750 MG PO (20:11)
[2020-10-06] MEDS: LORazepam 2 mg/mL INJ 1 mL 0.5 MG IM (20:13)
[2020-10-06] MEDS: vancomycin 1,500 MG/300 ML PIGGYBACK 200 MG IV (20:15)
[2020-10-06] MEDS: ranolazine (12HR) 500 mg Tablet 1000 MG PO (20:23)
[2020-10-07] VITALS (18 sets, daily range): BP systolic 99–166; BP diastolic 59–100; PULSE 96–108; RESP 11–23; TEMP 36.4–37.1; O2SAT 90–98
[2020-10-07] MEDS: LORazepam 2 mg/mL INJ 1 mL 0.5 MG IM ×2 (02:32→17:30)
[2020-10-07] MEDS: HYDROmorphone 1 mg/mL INJ 1 mL 0.5 MG IVP ×3 (03:40→20:19)
[2020-10-07] MEDS: aztreonam 2,000 MG in sodium chloride 0.9% (plus) 100 ML 200 MG IV ×3 (04:29→20:18)
[2020-10-07 06:00] LABS: Hematocrit 26.8 % (37.0-47.0); Hemoglobin 7.9 g/dL (11.5-15.3); Mean Corpuscular HGB Conc 29.5 g/dL (30.0-36.0); Mean Corpuscular Hemoglobin 26.3 pg (28.0-34.0); Mean Corpuscular Volume 89.3 fL (81-99); Platelet Count 761 10^3/cmm (130-400); Red Cell Distribution Width 17.2 % (12.1-15.1)
[2020-10-07 06:23] LABS: Albumin Level 2.4 g/dL (3.5-5.2); Blood Urea Nitrogen 6 mg/dL (6-20); Carbon Dioxide 18 mmol/L (22-29); Chloride 109 mmol/L (98-107); Glucose 133 mg/dL (65-115); Phosphorus 4.7 mg/dL (2.5-4.5); Sodium 137 mmol/L (136-145)
[2020-10-07 06:25] LABS: C Reactive Protein 53.4 mg/L (0.0-4.9); Magnesium 1.6 mg/dL (1.7-2.3)
[2020-10-07 07:42] LABS: Slide Review Slide Review Perform
[2020-10-07 07:51] LABS: Absolute Eosinophils 0.9 10^3/cmm (0.0-0.7); Absolute Neutrophil 11.2 10^3/cmm (1.4-6.5); Absolute Segmented Neutrophil 8.1 10/cmm (1.6-7.1); Anisocytosis 1+; Band Neutrophils Absolute 3.1 10^3/cmm (0.0-1.2); Eosinophils 5 %; Giant Platelets Trace; Lymphocytes 18 %; Platelet Estimate Increased (Normal); Polychromasia 1+; Segmented Neutrophils 45 %; Total Cells Counted 100 (0-100)
--- NOTE | 2020-10-07 07:54 | PM.PN ---
Subjective Subjective: Interval history: Patient resting. Wakes to voice. Pain OK. Vitals/I&O/Wt Last Vital Signs Temp 98.4 F 10/07/20 04:05 Pulse 96 10/07/20 06:00 Resp 21 H 10/07/20 03:40 BP 103/70 10/07/20 04:00 Pulse Ox 90 10/07/20 03:00 10/06/20 10/07/20 10/07/20 22:59 06:59 14:59 Intake Total 600 / 1100 Output Total 1325 / 2200 450 / 2650 Balance -725 / -1100 -450 / -1550 Weight last 48 hrs Weight 261 lb 1.6 oz Weight 260 lb 12.8 oz Physical Exam Narrative: EXAM NARRATIVE: Left knee dressing clean and dry. Moves left toes. Urinary Catheter Management^: [place]: Cath Placed During This Visit: yes, but has since been removed by the nurse Reason for Continuing Indwelling Catheter: Accurate Measurement of Urinary Output in Critically Ill Patients Urinary Catheter Date of Insertion: 09/30/20 Urinary Catheter Time of Insertion: 00:30 Date Urinary Catheter Removed: 10/01/20 Time Urinary Catheter Discontinued: 06:34 Data : 10/07/20 05:04 10/07/20 05:04 Micro: Microbiology 10/06/20 16:10 Gram Stain - Preliminary Knee - Left 09/30/20 19:40 Gram Stain - Final Knee - Left Anaerobic Culture - Preliminary Wound Culture - Final Methicillin Resis Staph Aureus A&P Assessment and plan (1) Septic arthritis of knee, left: Status: Acute Qualifiers: Septic arthritis organism: due to unspecified organism Qualified Code(s): M00.9 - Pyogenic arthritis, unspecified (2) Status post left knee replacement: Stop day 1 status post second debridement for septic total knee. Antibiotic spacers have been placed. The patient does not respond well I think we will need to consider abandoning her total knee and proceeding to arthrodesis. Certainly her weight and diabetes are poor prognosticators. Continue IV antibiotics per internal medicine. Status: Acute Attestations Medical Necessity Statement*: Antibiotics required necessitating continued admission. Coding Level of Care Code Acute [facility]ander Operator for [facility] Diagnoses Septic arthritis of knee, left M00.9 Septic arthritis organism: due to unspecified organism Status post left knee replacement Z96.652
--- NOTE | 2020-10-07 08:46 | PC.CHAP ---
Pastoral Care Encounter/Spiritual Assessment Type of Contact [] Declined log peeler visit [] Patient/Family/Request visit [] Outpatient visit [] Follow-up visit [] Physician referral [] Code/Alert [] Routine visit [] Staff referral [] Actively dying [] Patient sleeping [] Family support [] [] Out of room [] Palliative care [] [] Receiving care in room [] Pre-surgical visit [] Trauma [] Long length of stay [x] ICU visit [] Other: Relational/Emotional Strength [] Patient feels connected with others/family/visitors/staff [] Distress [] Loneliness/isolation [] Abandonment Spirituality of Patient [] Person of Mary [] Attends [employer] of their Mary [] Believes in Prayer [] Reads Bible or Jainism materials [] There are Spiritual issues to be addressed Contact And Service Clerks Supervisor Interventions [x] Prayer [] Active listening [] Non-anxious presence [] Spiritual/emotional support [] Crisis/trauma care [] Spiritual counseling [] Bereavement support [] Provided bereavement packet [] Provided Bible/devotional materials [] Provided toy/stuffed animal, coloring book to patient or family member [] Provided Communion [] Anointing/[place] [] Salvation [x] Completed spiritual assessment [] Other: Impact on Illness or Injury [] Angry [] Fearful [] Anxious [] Often cries [] Exhaustion [] Unable to work [] Unable to attend denominational [] Unable to walk/stand [] Unable to read [] Unable to drive [] Unable to eat/drink [] Unable to sleep [] Unable to be with family [] Patient intubated [] Other: Summary Time spent with patient
[2020-10-07] MEDS: duloxetine 60 mg Capsule PO (09:09)
[2020-10-07] MEDS: ranolazine (12HR) 500 mg Tablet 1000 MG PO ×2 (09:10→20:27)
[2020-10-07] MEDS: ticagrelor 90 mg Tablet PO ×2 (09:10→20:27)
[2020-10-07] MEDS: aspirin 81 mg Chew Tablet PO (09:10)
[2020-10-07] MEDS: topiramate 25 mg Tablet PO ×2 (09:10→20:27)
[2020-10-07] MEDS: folic acid 1 mg Tablet PO (09:10)
[2020-10-07] MEDS: levETIRAcetam 500 mg Tablet 750 MG PO ×2 (09:12→20:27)
[2020-10-07] MEDS: pantoprazole DR 40 mg Tablet PO (09:15)
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
--- NOTE | 2020-10-07 10:20 | PC.NURSE ---
Pt leaning over the bed rail so far it looked like she was going to fall out of bed. She is yelling out. Her mug of water is on the floor. Pt instructed about her behavior and her mother had told her to be nice, she laid bed in bed and went to sleep.
[2020-10-07 11:22] LABS: Glucose Point of Care 136 mg/dL (70-110)
[2020-10-07 11:41] LABS: Glucose Point of Care 158 mg/dL (70-110)
[2020-10-07] MEDS: vancomycin 1,500 MG/300 ML PIGGYBACK 200 MG IV (13:39)
[2020-10-07 17:23] LABS: Glucose Point of Care 128 mg/dL (70-110)
--- NOTE | 2020-10-07 18:49 | P.PN_ITS ---
Subjective Subjective: Interval history: Doing okay. Denies any active complaints. The pain is well controlled. No fevers or chills. No nausea or vomiting. No shortness of breath or cough. Medications: Reviewed: Yes Medication Review Details: Generic Name Dose Route Start Last Admin Trade Name Freq PRN Reason Stop Dose Admin Acetaminophen 650 mg 09/29/20 19:25 10/06/20 20:09 Acetaminophen 32 5 Mg Tablet PO 650 mg Q6H PRN Administration Mild/Mod Pain Or Temp >/= 101 Albuterol Sulfate 2 puff 09/29/20 19:25 10/06/20 20:34 Albuterol 8 Gm M di INHALATION 2 puff QID PRN Administration shortness of zuri th or wheezing Aspirin 81 mg 09/30/20 08:00 10/07/20 09:10 Aspirin 81 Mg Ch ew Tablet PO 81 mg DAILY@08 YUSUF Administration Atorvastatin Calci um 40 mg 09/29/20 21:00 10/06/20 20:08 Atorvastatin 40 Mg Tablet PO 40 mg DAILY@21 YUSUF Administration Duloxetine HCl 60 mg 09/30/20 08:00 10/07/20 09:09 Duloxetine 60 Mg Capsule PO 60 mg DAILY@08 YUSUF Administration Folic Acid 1 mg 10/05/20 09:00 10/07/20 09:10 Folic Acid 1 Mg Tablet PO 1 mg DAILY YUSUF Administration Hydromorphone HCl 0.5 mg 10/05/20 11:44 10/07/20 13:42 Hydromorphone 1 Mg/Ml Inj 1 Ml IVP 0.5 mg Q4H PRN Administration PAIN Aztreonam 2,000 mg / Sodium 100 mls @ 200 mls /hr 09/30/20 01:00 10/07/20 13:00 Chloride IV Infused Q8H YUSUF Infusion Protocol Norepinephrine Bit artrate 4 mg 254 mls @ 0 mls/h r 10/01/20 09:15 10/03/20 04:31 / Dextrose IV Infused .Q0M YUSUF Titration Protocol Per Protocol Vancomycin/PEG/NAD A/Lysine/Water 1,500 mg in 300 m ls @ 250 mls/hr 10/06/20 02:00 10/07/20 15:10 Vancocin IV Infused Q18H YUSUF Infusion Insulin Aspart 0 unit 09/29/20 21:00 10/07/20 17:23 Insulin Aspart 1 00 Unit/1 Ml SUBCUT Not Given WM&BEDTIME [facility] Protocol Insulin Detemir 10 unit 09/30/20 08:00 10/07/20 09:13 Insulin Detemir 100 Units/1 Ml SUBCUT 10 unit DAILY@08 YUSUF Administration Levetiracetam 750 mg 10/05/20 21:00 10/07/20 09:12 Levetiracetam 50 0 Mg Tablet PO 750 mg BID@ YUSUF Administration Lorazepam 0.5 mg 10/05/20 11:44 10/07/20 17:30 Lorazepam 2 Mg/M l Inj 1 Ml IM 0.5 mg Q6H PRN Administration ANXIETY Pantoprazole Sodiu m 40 mg 09/30/20 08:00 10/07/20 09:[address] 40 Mg Tablet PO 40 mg DAILY@08 [facility] Administration Quetiapine Fumarat e 50 mg 09/29/20 21:00 10/06/20 20:10 Quetiapine 25 Mg Tablet PO 50 mg BEDTIME@ YUSUF Administration Ranolazine 1,000 mg 09/29/20 21:00 10/07/20 09:10 Ranolazine (12hr ) 500 Mg Tablet PO 1,000 mg BID@ [facility] Administration Fluticasone/Salmet odette 1 puff 09/29/20 20:00 10/07/20 09:54 Fluticasone-Salm eterol 500-50 Disk us INHALATION Not Given Q12H [facility] Ticagrelor 90 mg 09/29/20 21:00 10/07/20 09:10 Ticagrelor 90 Mg Tablet PO 90 mg BID@ YUSUF Administration Topiramate 25 mg 09/29/20 21:00 10/07/20 09:10 Topiramate 25 Mg Tablet PO 25 mg BID@ [facility] Administration Vitals/I&O/Wt Last Vital Signs Temp 97.8 F 10/07/20 18:00 Pulse 99 10/07/20 18:00 Resp 16 10/07/20 16:00 BP 166/86 10/07/20 18:00 Pulse Ox 92 10/07/20 18:00 10/07/20 10/07/20 10/07/20 06:59 14:59 22:59 Intake Total 100 / 1500 400 / 400 700 / 1100 Output Total 450 / 2650 1850 / 1850 Balance -350 / -1150 400 / 400 -1150 / -750 Weight last 48 hrs Weight 118.433 kg Weight 118.297 kg Physical Exam Narrative: EXAM NARRATIVE: AAO. No acute distress. Responses are adequate. Skin is warm and dry. Moist extremities. Neck supple. No JVD Lungs clear. No respiratory distress Heart S1, S2, regular Abdomen soft, obese, nontender, bowel sounds are present Extremities bilateral pedal edema. No cyanosis no calf tenderness bilaterally. The dressing on the left knee is dry and clean. Urinary Catheter Management^: [place]: Cath Placed During This Visit: yes, but has since been removed by the nurse Reason for Continuing Indwelling Catheter: Accurate Measurement of Urinary Output in Critically Ill Patients Urinary Catheter Date of Insertion: 09/30/20 Urinary Catheter Time of Insertion: 00:30 Date Urinary Catheter Removed: 10/01/20 Time Urinary Catheter Discontinued: 06:34 Data : 10/07/20 05:04 10/07/20 05:04 Micro: Microbiology 09/30/20 19:40 Gram Stain - Final Knee - Left Anaerobic Culture - Preliminary Wound Culture - Final Methicillin Resis Staph Aureus 10/06/20 16:10 Gram Stain - Preliminary Knee - Left A&P Assessment and plan (1) Hypotension: Persistent hypotension. Weaned down slightly on pressor, but continues to require norepinephrine. This morning at 3.5 mcg. Mean atrial pressure is 70-77. Attempting to taper down further. Joint aspiration culture growing Staph aureus, strep agalactiae. Continues on vancomycin. Aztreonam. Vancomycin level is a little bit better at 12.5. Discussed with pharmacy vancomycin dose will be adjusted for a bit more aggressive therapy. Target level 15-20. Monitor levels and renal function. She is in positive balance. Had decent response to PRBC transfusion. Recheck hemoglobin level. Today she is noting some chest pain which appears to be musculoskeletal and/or pleuritic. Will check troponin EKG series. Chest x-ray. With persistent hypotension check echocardiogram. Continue attempts to wean off norepinephrine this morning. If unsuccessful may require stress dose steroid. Acute encephalopathy secondary to infection. Continue to reorient. She is anxious. Low-dose Ativan as needed for anxiety. Monitor response. Status: Acute (2) Septic arthritis of knee, left: Status post explantation of left knee hardware 09/30 and placement of antibiotic spacer. Continue IV antibiotics. Follow-up cultures. SA and GBS growing so far. Status: Acute Qualifiers: Septic arthritis organism: due to unspecified organism Qualified Code(s): M00.9 - Pyogenic arthritis, unspecified (3) Status post left knee replacement: Status: Acute (4) QIANA (acute kidney injury): QIANA on admission resolved. Monitor hemoglobin now given hypotension episodes. Hold losartan for now. Hold Lasix. Monitor urine output. Renal function. Avoid NSAIDs. Status: Acute (5) Current every day smoker: Encourage cessation. Status: Chronic (6) Coronary artery disease due to type 2 diabetes mellitus: Stenting in April, subsequently in June coronary angiography which showed some multifocal coronary disease, not requiring intervention. Continue a spirin, Plavix until at least if possible. Status: Acute (7) Chronic obstructive pulmonary disease, unspecified: Reports chronically on oxygen of 2 L. Currently appears at baseline. Does report some mild intermittent cough, intermittently productive. Some small airway inflammation noted on chest x-ray. Possibly mild COPD exacerbation. For now held off on steroids, but may need them for other reasons. Continue inhalers. Collect sputum culture. Rapid COVID-19 antigen test negative. Status: Acute Qualifiers: COPD type: unspecified COPD Qualified Code(s): J44.9 - Chronic obstructive pulmonary disease, unspecified (8) Essential hypertension: Monitor BPs Status: Chronic (9) Anemia: S/p 1 unit prbc. Recheck Hb tonight. On ASA, Brillinta. Continue for now. Check hemoccult. Status: Acute (10) Diabetes type 2, uncontrolled: Continue long-acting insulin. Sliding scale. If no lower BG values may tolerate moderate sliding scale. Status: Acute Qualifiers: Glycemic state: with hyperglycemia Qualified Code(s): E11.65 - Type 2 diabetes mellitus with hyperglycemia Additional A&P Information Hypotension: Persistent hypotension. Weaned down slightly on pressor, but continues to require norepinephrine. This morning at 3.5 mcg. Mean atrial pressure is 70-77. Attempting to taper down further. Joint aspiration culture growing Staph aureus, strep agalactiae. Continues on vancomycin. Aztreonam. Vancomycin level is a little bit better at 12.5. Discussed with pharmacy vancomycin dose will be adjusted for a bit more aggressive therapy. Target level 15-20. Monitor levels and renal function. She is in positive balance. Had decent response to PRBC transfusion. Recheck hemoglobin level. Today she is noting some chest pain which appears to be musculoskeletal and/or pleuritic. Will check troponin EKG series. Chest x-ray. With persistent hypotension check echocardiogram. Continue attempts to wean off norepinephrine this morning. If unsuccessful may require stress dose steroid. Acute encephalopathy secondary to infection. Continue to reorient. She is anxious. Low-dose Ativan as needed for anxiety. Monitor response. Status: Acute (2) Septic arthritis of knee, left: Status post explantation of left knee hardware 09/30 and placement of antibiotic spacer. Continue IV antibiotics. Follow-up cultures. SA and GBS growing so far. Status: Acute Qualifiers: Septic arthritis organism: due to unspecified organism Qualified Code(s): M00.9 - Pyogenic arthritis, unspecified (3) Status post left knee replacement: Status: Acute (4) QIANA (acute kidney injury): QIANA on admission resolved. Monitor hemoglobin now given hypotension episodes. Hold losartan for now. Hold Lasix. Monitor urine output. Renal function. Avoid NSAIDs. Status: Acute (5) Current every day smoker: Encourage cessation. Status: Chronic (6) Coronary artery disease due to type 2 diabetes mellitus: Stenting in April, subsequently in June coronary angiography which showed some multifocal coronary disease, not requiring intervention. Continue aspirin, Plavix until at least if possible. Status: Acute (7) Chronic obstructive pulmonary disease, unspecified: Reports chronically on oxygen of 2 L. Currently appears at baseline. Does report some mild intermittent cough, intermittently productive. Some small airway inflammation noted on chest x-ray. Possibly mild COPD exacerbation. For now held off on steroids, but may need them for other reasons. Continue inhalers. Collect sputum culture. Rapid COVID-19 antigen test negative. Status: Acute Qualifiers: COPD type: unspecified COPD Qualified Code(s): J44.9 - Chronic obstructive pulmonary disease, unspecified (8) Essential hypertension: Monitor BPs Status: Chronic (9) Anemia: S/p 1 unit prbc. Recheck Hb tonight. On ASA, Brillinta. Continue for now. Check hemoccult. Status: Acute (10) Diabetes type 2, uncontrolled: Continue long-acting insulin. Sliding scale. If no lower BG values may tolerate moderate sliding scale. Status: Acute Qualifiers: Glycemic state: with hyperglycemia Qualified Code(s): E11.65 - Type 2 diabetes mellitus with hyperglycemia Additional A&P Information Alk phos elevation: possibly related to recent knee surgery. Normal GGT Acute on chronic leukocytosis Thrombocytosis Mild hyponatremia [place] Septic arthritis. Status post new I&D yesterday. New cultures are taken. Previous cultures are positive for MRSA and strep. Continue management with vancomycin. Aztreonam was added due to concerns of possible pneumonia. Monitor CBC for leukocytosis and thrombocytosis and CRP. Anemia. Overall stable. Fecal occult blood testing was negative. Has iron, folic acid and B12 borderline low levels. Replacing. Possible pneumonia versus atelectasis. Continue current antibiotics and incentive spirometry. Mobilization as much as possible provided limitations due to being in ICU and septic arthritis. Adrenal insufficiency? Blood pressure stable, at acceptable range. We would like to avoid steroids due to infection and diabetes. Can start fludrocortisone or midodrine if develops hypotension. Hypotension. Resolved. Altered mental status. Probably multifactorial including acute metabolic encephalopathy secondary to above. Improved significantly. I suspect it was at least partly related to medications, particularly Keppra. Improved with reducing the dose of Keppra. Acute kidney injury. Resolved. Monitor. Hypokalemia and hypomagnesemia. Replace and monitor Coronary artery disease. Stable. Continue medications including dual antiplatelet therapy. COPD. No evidence of acute exacerbation Diabetes. Continue current management. Adjust insulin as needed. DVT prophylaxis. Lovenox is on hold for the surgery. We will resume when it is okay from the surgical standpoint. Discussed with the multidisciplinary team and the patient. She verbalized understanding and agreement. Attestations Medical Necessity Statement*: Needs inpatient management of the septic arthritis with IV antibiotics. Coding Level of Care Code Acute [employer] for [facility] Fwd Diagnoses Hypotension I95.9 Septic arthritis of knee, left M00.9 Septic arthritis organism: due to unspecified organism Status post left knee replacement Z96.652 QIANA (acute kidney injury) N17.9 Current every day smoker F17.200 Coronary artery disease due to type 2 diabetes mellitus E11.59; I25.10 Chronic obstructive pulmonary disease, unspecified J44.9 COPD type: unspecified COPD Essential hypertension I10 Anemia D64.9 Diabetes type 2, uncontrolled E11.65 Glycemic state: with hyperglycemia
--- NOTE | 2020-10-07 19:15 | PC.NURSE ---
Report given to IRAM Puentes.
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
[2020-10-07] MEDS: magnesium sulfate premix 2 GM/50 ML PIGGYBACK IV (20:19)
[2020-10-07] MEDS: quetiapine 25 mg Tablet 50 MG PO (20:27)
[2020-10-07] MEDS: atorvastatin 40 mg Tablet PO (20:27)
[2020-10-07 20:43] LABS: Glucose Point of Care 247 mg/dL (70-110)
--- NOTE | 2020-10-07 22:30 | PC.NURSE ---
Patient screaming in room for cigarette. Verbalizes she will get some from her mom. Pt educated on smoking policy. Offered to get nicotine patch for patient and declined. Pt is oriented to self and is still confused. Reinforcement is needed.
[2020-10-08] VITALS (20 sets, daily range): BP systolic 96–157; BP diastolic 69–121; PULSE 72–112; RESP 16–28; TEMP 36.7–37.1; O2SAT 92–99
--- NOTE | 2020-10-08 02:49 | PC.NURSE ---
Report given to IRAM Mccauley. Taking over care of patient at this time.
--- NOTE | 2020-10-08 02:55 | PC.NURSE ---
assumed care of patient, report received suzie Juan RN
[2020-10-08] MEDS: aztreonam 2,000 MG in sodium chloride 0.9% (plus) 100 ML 200 MG IV ×3 (04:13→19:56)
[2020-10-08] MEDS: HYDROmorphone 1 mg/mL INJ 1 mL 0.5 MG IVP ×3 (04:15→18:44)
[2020-10-08 05:32] LABS: Basophils # 0.1 10^3/uL (0.0-0.1); Basophils % 0.6 %; Eosinophils # 0.7 10^3/uL (0.0-0.8); Eosinophils % 5.1 %; Hematocrit 25.3 % (37.0-47.0); Hemoglobin 7.6 g/dL (11.5-15.3); Lymphocytes # 3.6 10^3/uL (0.8-4.8); Lymphocytes % 25.4 %; Mean Corpuscular Hemoglobin 25.9 pg (28.0-34.0); Mean Corpuscular Volume 86.3 fL (81-99); Mean Platelet Volume 8.9 fL (7.4-10.4); Monocytes # 1.6 10^3/uL (0.2-0.9); Monocytes % 11.3 %; Neutrophils # 7.33 10^3/uL (1.8-7.7); Neutrophils % 51.5 %; Nucleated Red Blood Cells # 0.1 /100WBC; Nucleated Red Blood Cells % 0.7 %; Platelet Count 613 10^3/cmm (130-400); Red Blood Count 2.93 10^6/uL (4.1-5.3); Red Cell Distribution Width 17.4 % (12.1-15.1); White Blood Count 14.2 10^3/uL (4.0-10.0)
[2020-10-08 05:53] LABS: C Reactive Protein 90.5 mg/L (0.0-4.9); Magnesium 1.7 mg/dL (1.7-2.3)
[2020-10-08 05:55] LABS: Albumin Level 2.4 g/dL (3.5-5.2); Blood Urea Nitrogen 3 mg/dL (6-20); Calcium 8.5 mg/dL (8.5-10.5); Carbon Dioxide 19 mmol/L (22-29); Chloride 111 mmol/L (98-107); Glucose 118 mg/dL (65-115); Phosphorus 4.3 mg/dL (2.5-4.5); Sodium 140 mmol/L (136-145)
[2020-10-08 06:04] LABS: Anion Gap 14.3 (5-19); Potassium 4.3 mmol/L (3.5-5.1)
[2020-10-08 06:10] LABS: Slide Review Slide Review Perform
[2020-10-08 07:55] LABS: Glucose Point of Care 182 mg/dL (70-110)
--- NOTE | 2020-10-08 07:55 | P.PN_ITS ---
Subjective Subjective: Interval history: Patient in good spirits. Pain OK Vitals/I&O/Wt Last Vital Signs Temp 98.7 F 10/08/20 04:00 Pulse 93 10/08/20 05:55 Resp 22 H 10/08/20 04:00 BP 152/82 10/08/20 04:00 Pulse Ox 98 10/08/20 04:00 10/07/20 10/08/20 10/08/20 22:59 06:59 14:59 Intake Total 800 / 1200 Output Total 1850 / 1850 2825 / 4675 Balance -1050 / -650 -2825 / -3475 Weight last 48 hrs Weight 261 lb Weight 261 lb 1.6 oz Physical Exam Narrative: EXAM NARRATIVE: Left knee dressing clean and dry. Urinary Catheter Management^: [place]: Cath Placed During This Visit: yes, but has since been removed by the nurse Reason for Continuing Indwelling Catheter: Accurate Measurement of Urinary Output in Critically Ill Patients Urinary Catheter Date of Insertion: 09/30/20 Urinary Catheter Time of Insertion: 00:30 Date Urinary Catheter Removed: 10/01/20 Time Urinary Catheter Discontinued: 06:34 Data : 10/08/20 04:30 10/08/20 04:30 Micro: Microbiology 09/30/20 19:40 Gram Stain - Final Knee - Left Anaerobic Culture - Preliminary Wound Culture - Final Methicillin Resis Staph Aureus A&P Assessment and plan (1) Status post left knee replacement: Status: Acute (2) Septic arthritis of knee, left: Continue knee immobilizer through weekend until drainage stopped. Will need to see WBC normalize and drainage stop over next few days. Patient obese and diabetic. Blood sugars under better control in the hospital but I am not sure this is the case at home. Salvage of a functioning knee may be difficult. If fails to respond to second debridement we will consider arthrodesis. Status: Acute Qualifiers: Septic arthritis organism: due to unspecified organism Qualified Code(s): M00.9 - Pyogenic arthritis, unspecified Attestations Medical Necessity Statement*: per medicine Coding Level of Care Code Acute [employer] for [facility] Diagnoses Status post left knee replacement Z96.652 Septic arthritis of knee, left M00.9 Septic arthritis organism: due to unspecified organism
[2020-10-08] MEDS: topiramate 25 mg Tablet PO ×2 (08:10→19:56)
[2020-10-08] MEDS: aspirin 81 mg Chew Tablet PO (08:10)
[2020-10-08] MEDS: levETIRAcetam 500 mg Tablet 750 MG PO ×2 (08:10→19:55)
[2020-10-08] MEDS: ticagrelor 90 mg Tablet PO ×2 (08:11→19:56)
[2020-10-08] MEDS: duloxetine 60 mg Capsule PO (08:11)
[2020-10-08] MEDS: pantoprazole DR 40 mg Tablet PO (08:11)
[2020-10-08] MEDS: folic acid 1 mg Tablet PO (08:11)
[2020-10-08] MEDS: ranolazine (12HR) 500 mg Tablet 1000 MG PO ×2 (08:12→19:55)
[2020-10-08] MEDS: albuterol 8 gm MDI 2 PUFF INHALATION ×2 (08:44→23:04)
[2020-10-08] MEDS: vancomycin 1,500 MG/300 ML PIGGYBACK 200 MG IV (09:09)
--- NOTE | 2020-10-08 10:56 | PC.SOCIAL ---
IMM Updated Updated pt on Pg 2 IMM. No questions voiced. Provided pt a copy. Signed, dated, & timed copy in chart.
[2020-10-08 12:26] LABS: Glucose Point of Care 118 mg/dL (70-110)
--- NOTE | 2020-10-08 12:56 | PC.NURSE ---
1230. recd from recovery with abdominal binder in place. d/i. hemavac in place and compressed. dorsalis pulses not palpable by this nurse. p.t. pulses weak. cap refil less than 3 feet warm to touch.
[2020-10-08] MEDS: acetaminophen 325 mg Tablet 650 MG PO (13:40)
--- NOTE | 2020-10-08 16:35 | PM.PN ---
Subjective Subjective: Interval history: Doing well. Denies any active complaints. No fever or chills. The pain is well controlled. No diarrhea. No chest pain, shortness of breath, cough, palpitations. Medications: Reviewed: Yes Medication Review Details: Generic Name Dose Route Start Last Admin Trade Name Freq PRN Reason Stop Dose Admin Acetaminophen 650 mg 09/29/20 19:25 10/08/20 13:40 Acetaminophen 32 5 Mg Tablet PO 650 mg Q6H PRN Administration Mild/Mod Pain Or Temp >/= 101 Albuterol Sulfate 2 puff 09/29/20 19:25 10/08/20 08:44 Albuterol 8 Gm M di INHALATION 2 puff QID PRN Administration shortness of zuri th or wheezing Aspirin 81 mg 09/30/20 08:00 10/08/20 08:10 Aspirin 81 Mg Ch ew Tablet PO 81 mg DAILY@08 YUSUF Administration Atorvastatin Calci um 40 mg 09/29/20 21:00 10/07/20 20:27 Atorvastatin 40 Mg Tablet PO 40 mg DAILY@21 YUSUF Administration Duloxetine HCl 60 mg 09/30/20 08:00 10/08/20 08:11 Duloxetine 60 Mg Capsule PO 60 mg DAILY@08 YUSUF Administration Folic Acid 1 mg 10/05/20 09:00 10/08/20 08:11 Folic Acid 1 Mg Tablet PO 1 mg DAILY YUSUF Administration Aztreonam 2,000 mg / Sodium 100 mls @ 200 mls /hr 09/30/20 01:00 10/08/20 12:29 Chloride IV Infused Q8H YUSUF Infusion Protocol Norepinephrine Bit artrate 4 mg 254 mls @ 0 mls/h r 10/01/20 09:15 10/03/20 04:31 / Dextrose IV Infused .Q0M YUSUF Titration Protocol Per Protocol Vancomycin/PEG/NAD A/Lysine/Water 1,500 mg in 300 m ls @ 250 mls/hr 10/06/20 02:00 10/08/20 09:09 Vancocin IV 200 mls/hr Q18H YUSUF Administration Insulin Aspart 0 unit 09/29/20 21:00 10/08/20 12:29 Insulin Aspart 1 00 Unit/1 Ml SUBCUT Not Given WM&BEDTIME YUSUF Protocol Levetiracetam 750 mg 10/05/20 21:00 10/08/20 08:10 Levetiracetam 50 0 Mg Tablet PO 750 mg BID@ YUSUF Administration Lorazepam 0.5 mg 10/05/20 11:44 10/07/20 17:30 Lorazepam 2 Mg/M l Inj 1 Ml IM 0.5 mg Q6H PRN Administration ANXIETY Pantoprazole Sodiu m 40 mg 09/30/20 08:00 10/08/20 08:[address] 40 Mg Tablet PO 40 mg DAILY@08 YUSUF Administration Quetiapine Fumarat e 50 mg 09/29/20 21:00 10/07/20 20:27 Quetiapine 25 Mg Tablet PO 50 mg BEDTIME@ YUSUF Administration Ranolazine 1,000 mg 09/29/20 21:00 10/08/20 08:12 Ranolazine (12hr ) 500 Mg Tablet PO 1,000 mg BID@ YUSUF Administration Fluticasone/Salmet odette 1 puff 09/29/20 20:00 10/08/20 08:44 Fluticasone-Salm eterol 500-50 Disk us INHALATION 1 puff Q12H YUSUF Administration Ticagrelor 90 mg 09/29/20 21:00 10/08/20 08:11 Ticagrelor 90 Mg Tablet PO 90 mg BID@ YUSUF Administration Topiramate 25 mg 09/29/20 21:00 10/08/20 08:10 Topiramate 25 Mg Tablet PO 25 mg BID@ YUSUF Administration Vitals/I&O/Wt Last Vital Signs Temp 98.7 F 10/08/20 04:00 Pulse 95 10/08/20 14:44 Resp 16 10/08/20 14:44 BP 157/83 10/08/20 08:00 Pulse Ox 93 10/08/20 14:44 10/08/20 10/08/20 10/08/20 06:59 14:59 22:59 Intake Total 960 / 960 Output Total 2825 / 4689 Balance -2825 / -3475 960 / 960 Weight last 48 hrs Weight 118.388 kg Weight 118.433 kg Physical Exam Narrative: EXAM NARRATIVE: AAO. No acute distress. Responses are adequate. Skin is warm and dry. Moist extremities. Neck supple. No JVD Lungs clear. No respiratory distress Heart S1, S2, regular Abdomen soft, obese, nontender, bowel sounds are present Extremities bilateral pedal edema. No cyanosis no calf tenderness bilaterally. The dressing on the left knee is dry and clean. Urinary Catheter Management^: [place]: Cath Placed During This Visit: yes, but has since been removed by the nurse Reason for Continuing Indwelling Catheter: Accurate Measurement of Urinary Output in Critically Ill Patients Urinary Catheter Date of Insertion: 09/30/20 Urinary Catheter Time of Insertion: 00:30 Date Urinary Catheter Removed: 10/01/20 Time Urinary Catheter Discontinued: 06:34 Data : 10/08/20 04:30 10/08/20 04:30 Micro: Microbiology 10/06/20 16:10 Anaerobic Culture - Preliminary Knee - Left 09/30/20 19:40 Gram Stain - Final Knee - Left Anaerobic Culture - Final Wound Culture - Final Methicillin Resis Staph Aureus 10/06/20 16:10 Gram Stain - Final Knee - Left Wound Culture - Preliminary A&P Assessment and plan (1) Hypotension: Persistent hypotension. Weaned down slightly on pressor, but continues to require norepinephrine. This morning at 3.5 mcg. Mean atrial pressure is 70-77. Attempting to taper down further. Joint aspiration culture growing Staph aureus, strep agalactiae. Continues on vancomycin. Aztreonam. Vancomycin level is a little bit better at 12.5. Discussed with pharmacy vancomycin dose will be adjusted for a bit more aggressive therapy. Target level 15-20. Monitor levels and renal function. She is in positive balance. Had decent response to PRBC transfusion. Recheck hemoglobin level. Today she is noting some chest pain which appears to be musculoskeletal and/or pleuritic. Will check troponin EKG series. Chest x-ray. With persistent hypotension check echocardiogram. Continue attempts to wean off norepinephrine this morning. If unsuccessful may require stress dose steroid. Acute encephalopathy secondary to infection. Continue to reorient. She is anxious. Low-dose Ativan as needed for anxiety. Monitor response. Status: Acute (2) Septic arthritis of knee, left: Status post explantation of left knee hardware 09/30 and placement of antibiotic spacer. Continue IV antibiotics. Follow-up cultures. SA and GBS growing so far. Status: Acute Qualifiers: Septic arthritis organism: due to unspecified organism Qualified Code(s): M00.9 - Pyogenic arthritis, unspecified (3) Status post left knee replacement: Status: Acute (4) QIANA (acute kidney injury): QIANA on admission resolved. Monitor hemoglobin now given hypotension episodes. Hold losartan for now. Hold Lasix. Monitor urine output. Renal function. Avoid NSAIDs. Status: Acute (5) Current every day smoker: Encourage cessation. Status: Chronic (6) Coronary artery disease due to type 2 diabetes mellitus: Stenting in April, subsequently in June coronary angiography which showed some multifocal coronary disease, not requiring intervention. Continue aspirin, Plavix until at least if possible. Status: Acute (7) Chronic obstructive pulmonary disease, unspecified: Reports chronically on oxygen of 2 L. Currently appears at baseline. Does report some mild intermittent cough, intermittently productive. Some small airway inflammation noted on chest x-ray. Possibly mild COPD exacerbation. For now held off on steroids, but may need them for other reasons. Continue inhalers. Collect sputum culture. Rapid COVID-19 antigen test negative. Status: Acute Qualifiers: COPD type: unspecified COPD Qualified Code(s): J44.9 - Chronic obstructive pulmonary disease, unspecified (8) Essential hypertension: Monitor BPs Status: Chronic (9) Anemia: S/p 1 unit prbc. Recheck Hb tonight. On ASA, Brillinta. Continue for now. Check hemoccult. Status: Acute (10) Diabetes type 2, uncontrolled: Continue long-acting insulin. Sliding scale. If no lower BG values may tolerate moderate sliding scale. Status: Acute Qualifiers: Glycemic state: with hyperglycemia Qualified Code(s): E11.65 - Type 2 diabetes mellitus with hyperglycemia Additional A&P Information Hypotension: Persistent hypotension. Weaned down slightly on pressor, but continues to require norepinephrine. This morning at 3.5 mcg. Mean atrial pressure is 70-77. Attempting to taper down further. Joint aspiration culture growing Staph aureus, strep agalactiae. Continues on vancomycin. Aztreonam. Vancomycin level is a little bit better at 12.5. Discussed with pharmacy vancomycin dose will be adjusted for a bit more aggressive therapy. Target level 15-20. Monitor levels and renal function. She is in positive balance. Had decent response to PRBC transfusion. Recheck hemoglobin level. Today she is noting some chest pain which appears to be musculoskeletal and/or pleuritic. Will check troponin EKG series. Chest x-ray. With persistent hypotension check echocardiogram. Continue attempts to wean off norepinephrine this morning. If unsuccessful may require stress dose steroid. Acute encephalopathy secondary to infection. Continue to reorient. She is anxious. Low-dose Ativan as needed for anxiety. Monitor response. Status: Acute (2) Septic arthritis of knee, left: Status post explantation of left knee hardware 09/30 and placement of antibiotic spacer. Continue IV antibiotics. Follow-up cultures. SA and GBS growing so far. Status: Acute Qualifiers: Septic arthritis organism: due to unspecified organism Qualified Code(s): M00.9 - Pyogenic arthritis, unspecified (3) Status post left knee replacement: Status: Acute (4) QIANA (acute kidney injury): QIANA on admission resolved. Monitor hemoglobin now given hypotension episodes. Hold losartan for now. Hold Lasix. Monitor urine output. Renal function. Avoid NSAIDs. Status: Acute (5) Current every day smoker: Encourage cessation. Status: Chronic (6) Coronary artery disease due to type 2 diabetes mellitus: Stenting in April, subsequently in June coronary angiography which showed some multifocal coronary disease, not requiring intervention. Continue aspirin, Plavix until at least if possible. Status: Acute (7) Chronic obstructive pulmonary disease, unspecified: Reports chronically on oxygen of 2 L. Currently appears at baseline. Does report some mild intermittent cough, intermittently productive. Some small airway inflammation noted on chest x-ray. Possibly mild COPD exacerbation. For now held off on steroids, but may need them for other reasons. Continue inhalers. Collect sputum culture. Rapid COVID-19 antigen test negative. Status: Acute Qualifiers: COPD type: unspecified COPD Qualified Code(s): J44.9 - Chronic obstructive pulmonary disease, unspecified (8) Essential hypertension: Monitor BPs Status: Chronic (9) Anemia: S/p 1 unit prbc. Recheck Hb tonight. On ASA, Brillinta. Continue for now. Check hemoccult. Status: Acute (10) Diabetes type 2, uncontrolled: Continue long-acting insulin. Sliding scale. If no lower BG values may tolerate moderate sliding scale. Status: Acute Qualifiers: Glycemic state: with hyperglycemia Qualified Code(s): E11.65 - Type 2 diabetes mellitus with hyperglycemia Additional A&P Information Alk phos elevation: possibly related to recent knee surgery. Normal GGT Acute on chronic leukocytosis Thrombocytosis Mild hyponatremia [place] Septic arthritis. Status post new I&D yesterday. New cultures are taken. Previous cultures are positive for MRSA and strep. Continue management with vancomycin. Aztreonam was added due to concerns of possible pneumonia. Monitor CBC for leukocytosis and thrombocytosis and CRP. Anemia. Overall stable. Fecal occult blood testing was negative. Has iron, folic acid and B12 borderline low levels. Replacing. Possible pneumonia versus atelectasis. Continue current antibiotics and incentive spirometry. Mobilization as much as possible provided limitations due to being in ICU and septic arthritis. Adrenal insufficiency? Blood pressure stable, at acceptable range. We would like to avoid steroids due to infection and diabetes. Can start fludrocortisone or midodrine if develops hypotension. Hypotension. Resolved. Altered mental status. Probably multifactorial including acute metabolic encephalopathy secondary to above. Improved significantly. I suspect it was at least partly related to medications, particularly Keppra. Improved with reducing the dose of Keppra. Acute kidney injury. Resolved. Monitor. Hypokalemia and hypomagnesemia. Replace and monitor Coronary artery disease. Stable. Continue medications including dual antiplatelet therapy. COPD. No evidence of acute exacerbation Diabetes. Continue current management. Adjust insulin as needed. DVT prophylaxis. Lovenox is on hold due to recent surgery. Discussed with Dr. Verma. We are waiting until the drainage from the surgical site is decreased. Discussed with the multidisciplinary team and the patient. She verbalized understanding and agreement. Attestations Medical Necessity Statement*: Still requires antibiotics and close monitoring of surgical knee. 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
[2020-10-08 18:03] LABS: Glucose Point of Care 156 mg/dL (70-110)
[2020-10-08] MEDS: ferrous sulfate EC 325 mg Tablet PO (18:51)
[2020-10-08] MEDS: quetiapine 25 mg Tablet 50 MG PO (19:55)
[2020-10-08] MEDS: atorvastatin 40 mg Tablet PO (19:55)
--- NOTE | 2020-10-08 21:01 | PC.NURSE ---
Report called to DARREN Erazo on medsurg. pt taken by bed to room 266.
[2020-10-08 21:21] LABS: Glucose Point of Care 160 mg/dL (70-110)
[2020-10-09] VITALS (13 sets, daily range): BP systolic 82–131; BP diastolic 57–81; PULSE 90–112; RESP 16–20; TEMP 36.7–37; O2SAT 93–99
[2020-10-09] MEDS: HYDROmorphone 1 mg/mL INJ 1 mL 0.5 MG IVP ×2 (00:50→12:43)
[2020-10-09] MEDS: LORazepam 2 mg/mL INJ 1 mL 0.5 MG IM (01:39)
[2020-10-09] MEDS: vancomycin 1,500 MG/300 ML PIGGYBACK 200 MG IV ×2 (02:51→21:50)
[2020-10-09] MEDS: aztreonam 2,000 MG in sodium chloride 0.9% (plus) 100 ML 200 MG IV ×2 (04:56→12:43)
[2020-10-09 05:59] LABS: Basophils # 0.1 10^3/uL (0.0-0.1); Basophils % 0.6 %; Eosinophils # 0.8 10^3/uL (0.0-0.8); Hematocrit 25.4 % (37.0-47.0); Hemoglobin 7.5 g/dL (11.5-15.3); Lymphocytes # 4.4 10^3/uL (0.8-4.8); Lymphocytes % 26.5 %; Mean Corpuscular HGB Conc 29.5 g/dL (30.0-36.0); Mean Corpuscular Volume 88.2 fL (81-99); Mean Platelet Volume 8.8 fL (7.4-10.4); Monocytes # 1.7 10^3/uL (0.2-0.9); Neutrophils # 8.79 10^3/uL (1.8-7.7); Neutrophils % 52.4 %; Nucleated Red Blood Cells # 0.1 /100WBC; Nucleated Red Blood Cells % 0.4 %; Platelet Count 989 10^3/cmm (130-400); Red Blood Count 2.88 10^6/uL (4.1-5.3); Red Cell Distribution Width 18.2 % (12.1-15.1); White Blood Count 16.8 10^3/uL (4.0-10.0)
[2020-10-09 06:17] LABS: Glucose Point of Care 148 mg/dL (70-110)
[2020-10-09 06:24] LABS: Slide Review Slide Review Perform
[2020-10-09 06:32] LABS: Albumin Level 2.7 g/dL (3.5-5.2); Blood Urea Nitrogen 7 mg/dL (6-20); Carbon Dioxide 19 mmol/L (22-29); Chloride 109 mmol/L (98-107); Glomerular Filtration Rate 129.1 mL/min (90-130); Glucose 131 mg/dL (65-115); Phosphorus 3.5 mg/dL (2.5-4.5); Sodium 139 mmol/L (136-145)
[2020-10-09 06:33] LABS: Magnesium 1.6 mg/dL (1.7-2.3)
[2020-10-09 06:34] LABS: Anion Gap 14.9 (5-19); Potassium 3.9 mmol/L (3.5-5.1)
[2020-10-09] MEDS: albuterol 8 gm MDI 2 PUFF INHALATION ×2 (08:00→19:54)
[2020-10-09] MEDS: folic acid 1 mg Tablet PO (09:33)
[2020-10-09] MEDS: levETIRAcetam 500 mg Tablet 750 MG PO ×2 (09:33→20:29)
[2020-10-09] MEDS: ticagrelor 90 mg Tablet PO ×2 (09:33→20:30)
[2020-10-09] MEDS: duloxetine 60 mg Capsule PO (09:33)
[2020-10-09] MEDS: ranolazine (12HR) 500 mg Tablet 1000 MG PO ×2 (09:33→20:29)
[2020-10-09] MEDS: aspirin 81 mg Chew Tablet PO (09:34)
[2020-10-09] MEDS: cyanocobalamin 1,000 mcg Tablet 500 MCG PO (09:34)
[2020-10-09] MEDS: ferrous sulfate EC 325 mg Tablet PO ×2 (09:34→17:46)
[2020-10-09] MEDS: topiramate 25 mg Tablet PO ×2 (09:35→20:29)
[2020-10-09] MEDS: pantoprazole DR 40 mg Tablet PO (09:35)
[2020-10-09 11:14] LABS: Glucose Point of Care 198 mg/dL (70-110)
--- NOTE | 2020-10-09 12:23 | PM.PN ---
Subjective Subjective: Interval history: Doing well. Denies any active complaints. No fever or chills. The pain is well controlled. No diarrhea. No chest pain, shortness of breath, cough, palpitations. Medications: Reviewed: Yes Vitals/I&O/Wt Last Vital Signs Temp 98.2 F 10/09/20 12:00 Pulse 100 10/09/20 12:00 Resp 16 10/09/20 12:00 BP 124/75 10/09/20 12:00 Pulse Ox 99 10/09/20 12:00 10/08/20 10/09/20 10/09/20 22:59 06:59 14:59 Intake Total 880 / 1840 Output Total 1450 / 1450 800 / 2250 Balance -570 / 390 -800 / -410 Weight last 48 hrs Weight 113.489 kg Weight 118.388 kg Physical Exam Const: COMMON NORMALS: patient oriented x3 HENMT: COMMON NORMALS: normocephalic, atraumatic and external ears normal HEAD & SCALP: normocephalic and atraumatic EXTERNAL EAR: Yes external ears normal Eye: GENERAL EYE: appearance normal, both eyes and all related structures Chest: COMMONS NORMALS: normal inspection of the chest CHEST: Yes Symmetrical chest wall rise Resp: COMMON NORMALS: normal respiratory effort and clear to auscultation bilaterally EFFORT & INSPECTION: Yes symmetric chest movement AUSCULTATION: clear to auscultation bilaterally Cardio: COMMON NORMALS: regular rate, regular rhythm, S1 normal heart sound present, S2 normal heart sound present, No gallops present (Cardio), No murmurs present (Cardio), No rub (Cardio) and Peripheral pulses 2+ throughout RATE: regular rate RHYTHM: regular rhythm HEART SOUNDS: S1 normal heart sound present and S2 normal heart sound present PERIPHERAL PULSES: Peripheral pulses 2+ throughout GI: COMMON NORMALS: Normal to inspection, nondistended, normoactive bowel sounds present, Soft to palpation, non-tender, No hepatosplenomegaly present and no masses AUSCULTATION: Yes normoactive bowel sounds PALPATION: Yes Soft to palpation and Yes No hepatosplenomegaly present RECTAL EXAM: deferred Extremity: OTHER: bilateral pedal edema. No cyanosis no calf tenderness bilaterally. The dressing on the left knee is dry and clean. Neuro: COMMON NORMALS: patient oriented x3 Urinary Catheter Management^: [place]: Cath Placed During This Visit: yes, but has since been removed by the nurse Reason for Continuing Indwelling Catheter: Accurate Measurement of Urinary Output in Critically Ill Patients Urinary Catheter Date of Insertion: 09/30/20 Urinary Catheter Time of Insertion: 00:30 Date Urinary Catheter Removed: 10/01/20 Time Urinary Catheter Discontinued: 06:34 Data : 10/09/20 05:34 10/09/20 05:34 Micro: Microbiology 10/06/20 16:10 Anaerobic Culture - Preliminary Knee - Left 09/30/20 19:40 Gram Stain - Final Knee - Left Anaerobic Culture - Final Wound Culture - Final Methicillin Resis Staph Aureus 10/06/20 16:10 Gram Stain - Final Knee - Left Wound Culture - Preliminary A&P Assessment and plan (1) Hypotension: Persistent hypotension. Weaned down slightly on pressor, but continues to require norepinephrine. This morning at 3.5 mcg. Mean atrial pressure is 70-77. Attempting to taper down further. Joint aspiration culture growing Staph aureus, strep agalactiae. Continues on vancomycin. Aztreonam. Vancomycin level is a little bit better at 12.5. Discussed with pharmacy vancomycin dose will be adjusted for a bit more aggressive therapy. Target level 15-20. Monitor levels and renal function. She is in positive balance. Had decent response to PRBC transfusion. Recheck hemoglobin level. Today she is noting some chest pain which appears to be musculoskeletal and/or pleuritic. Will check troponin EKG series. Chest x-ray. With persistent hypotension check echocardiogram. Continue attempts to wean off norepinephrine this morning. If unsuccessful may require stress dose steroid. Acute encephalopathy secondary to infection. Continue to reorient. She is anxious. Low-dose Ativan as needed for anxiety. Monitor response. Status: Acute (2) Septic arthritis of knee, left: Status post explantation of left knee hardware 09/30 and placement of antibiotic spacer. Continue IV antibiotics. Follow-up cultures. SA and GBS growing so far. Status: Acute Qualifiers: Septic arthritis organism: due to unspecified organism Qualified Code(s): M00.9 - Pyogenic arthritis, unspecified (3) Status post left knee replacement: Status: Acute (4) QIANA (acute kidney injury): QIANA on admission resolved. Monitor hemoglobin now given hypotension episodes. Hold losartan for now. Hold Lasix. Monitor urine output. Renal function. Avoid NSAIDs. Status: Acute (5) Current every day smoker: Encourage cessation. Status: Chronic (6) Coronary artery disease due to type 2 diabetes mellitus: Stenting in April, subsequently in June coronary angiography which showed some multifocal coronary disease, not requiring intervention. Continue aspirin, Plavix until at least if possible. Status: Acute (7) Chronic obstructive pulmonary disease, unspecified: Reports chronically on oxygen of 2 L. Currently appears at baseline. Does report some mild intermittent cough, intermittently productive. Some small airway inflammation noted on chest x-ray. Possibly mild COPD exacerbation. For now held off on steroids, but may need them for other reasons. Continue inhalers. Collect sputum culture. Rapid COVID-19 antigen test negative. Status: Acute Qualifiers: COPD type: unspecified COPD Qualified Code(s): J44.9 - Chronic obstructive pulmonary disease, unspecified (8) Essential hypertension: Monitor BPs Status: Chronic (9) Anemia: S/p 1 unit prbc. Recheck Hb tonight. On ASA, Brillinta. Continue for now. Check hemoccult. Status: Acute (10) Diabetes type 2, uncontrolled: Continue long-acting insulin. Sliding scale. If no lower BG values may tolerate moderate sliding scale. Status: Acute Qualifiers: Glycemic state: with hyperglycemia Qualified Code(s): E11.65 - Type 2 diabetes mellitus with hyperglycemia Additional A&P Information Hypotension: Persistent hypotension. Weaned down slightly on pressor, but continues to require norepinephrine. This morning at 3.5 mcg. Mean atrial pressure is 70-77. Attempting to taper down further. Joint aspiration culture growing Staph aureus, strep agalactiae. Continues on vancomycin. Aztreonam. Vancomycin level is a little bit better at 12.5. Discussed with pharmacy vancomycin dose will be adjusted for a bit more aggressive therapy. Target level 15-20. Monitor levels and renal function. She is in positive balance. Had decent response to PRBC transfusion. Recheck hemoglobin level. Today she is noting some chest pain which appears to be musculoskeletal and/or pleuritic. Will check troponin EKG series. Chest x-ray. With persistent hypotension check echocardiogram. Continue attempts to wean off norepinephrine this morning. If unsuccessful may require stress dose steroid. Acute encephalopathy secondary to infection. Continue to reorient. She is anxious. Low-dose Ativan as needed for anxiety. Monitor response. Status: Acute (2) Septic arthritis of knee, left: Status post explantation of left knee hardware 09/30 and placement of antibiotic spacer. Continue IV antibiotics. Follow-up cultures. SA and GBS growing so far. Status: Acute Qualifiers: Septic arthritis organism: due to unspecified organism Qualified Code(s): M00.9 - Pyogenic arthritis, unspecified (3) Status post left knee replacement: Status: Acute (4) QIANA (acute kidney injury): QIANA on admission resolved. Monitor hemoglobin now given hypotension episodes. Hold losartan for now. Hold Lasix. Monitor urine output. Renal function. Avoid NSAIDs. Status: Acute (5) Current every day smoker: Encourage cessation. Status: Chronic (6) Coronary artery disease due to type 2 diabetes mellitus: Stenting in April, subsequently in June coronary angiography which showed some multifocal coronary disease, not requiring intervention. Continue aspirin, Plavix until at least if possible. Status: Acute (7) Chronic obstructive pulmonary disease, unspecified: Reports chronically on oxygen of 2 L. Currently appears at baseline. Does report some mild intermittent cough, intermittently productive. Some small airway inflammation noted on chest x-ray. Possibly mild COPD exacerbation. For now held off on steroids, but may need them for other reasons. Continue inhalers. Collect sputum culture. Rapid COVID-19 antigen test negative. Status: Acute Qualifiers: COPD type: unspecified COPD Qualified Code(s): J44.9 - Chronic obstructive pulmonary disease, unspecified (8) Essential hypertension: Monitor BPs Status: Chronic (9) Anemia: S/p 1 unit prbc. Recheck Hb tonight. On ASA, Brillinta. Continue for now. Check hemoccult. Status: Acute (10) Diabetes type 2, uncontrolled: Continue long-acting insulin. Sliding scale. If no lower BG values may tolerate moderate sliding scale. Status: Acute Qualifiers: Glycemic state: with hyperglycemia Qualified Code(s): E11.65 - Type 2 diabetes mellitus with hyperglycemia Additional A&P Information Alk phos elevation: possibly related to recent knee surgery. Normal GGT Acute on chronic leukocytosis Thrombocytosis Mild hyponatremia Septic arthritis. Status post new I&D yesterday. New cultures are taken. Previous cultures are positive for MRSA and strep. Continue management with vancomycin. Aztreonam was added due to concerns of possible pneumonia. Patient was on aztrneonam from (09-30 to 10-09 ) Will start on levofloxacin 750 mg I.V Q24 H as well as imipenam given worseing leukocyotsos and persistnet hypotension and monitor ( 10/09) Monitor CBC for leukocytosis and thrombocytosis and CRP. Anemia. Overall stable. Fecal occult blood testing was negative. Has iron, folic acid and B12 borderline low levels. Replacing. Possible pneumonia versus atelectasis. Continue current antibiotics and incentive spirometry. Mobilization as much as possible provided limitations due to being in ICU and septic arthritis. Adrenal insufficiency? Will do cosyntropin stimulation test. Blood pressure fluctuation has been noticed. We would like to avoid steroids due to infection and diabetes. Can start fludrocortisone or midodrine if develops hypotension. Altered mental status. Probably multifactorial including acute metabolic encephalopathy secondary to above. Improved significantly. I suspect it was at least partly related to medications, particularly Keppra. Improved with reducing the dose of Keppra. Acute kidney injury. Resolved. Monitor. Hypokalemia and hypomagnesemia. Replace and monitor Coronary artery disease. Stable. Continue medications including dual antiplatelet therapy. COPD. No evidence of acute exacerbation Diabetes. Continue current management. Adjust insulin as needed. DVT prophylaxis. Lovenox is on hold due to recent surgery. Discussed with Dr. Verma. We are waiting until the drainage from the surgical site is decreased. Discussed with the multidisciplinary team and the patient. She verbalized understanding and agreement. Attestations Medical Necessity Statement*: Patient needs to be in hospital for the management of septic arthritis. 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
[2020-10-09] MEDS: TRAMadol 50 mg Tablet PO (16:41)
[2020-10-09 18:32] LABS: Glucose Point of Care 191 mg/dL (70-110)
[2020-10-09] MEDS: quetiapine 25 mg Tablet 50 MG PO (20:30)
[2020-10-09] MEDS: atorvastatin 40 mg Tablet PO (20:30)
[2020-10-09 22:38] LABS: Glucose Point of Care 158 mg/dL (70-110)
[2020-10-10] VITALS (13 sets, daily range): BP systolic 85–114; BP diastolic 51–70; PULSE 90–100; RESP 16–22; TEMP 36.2–36.9; O2SAT 96–99
[2020-10-10] MEDS: levofloxacin-dextrose 5 % 750 MG/150 ML PREMIX 100 MG IV ×2 (01:59→22:08)
[2020-10-10 06:56] LABS: Glucose Point of Care 148 mg/dL (70-110)
[2020-10-10] MEDS: albuterol 8 gm MDI 2 PUFF INHALATION (08:09)
[2020-10-10] MEDS: sodium chloride 0.9% 500 ML 999 ML IV (08:24)
[2020-10-10] MEDS: ranolazine (12HR) 500 mg Tablet 1000 MG PO ×2 (08:24→21:57)
[2020-10-10] MEDS: duloxetine 60 mg Capsule PO (08:25)
[2020-10-10] MEDS: cyanocobalamin 1,000 mcg Tablet 500 MCG PO (08:25)
[2020-10-10] MEDS: ticagrelor 90 mg Tablet PO ×2 (08:25→22:13)
[2020-10-10] MEDS: levETIRAcetam 500 mg Tablet 750 MG PO ×2 (08:25→21:58)
[2020-10-10] MEDS: topiramate 25 mg Tablet PO ×2 (08:26→21:58)
[2020-10-10] MEDS: aspirin 81 mg Chew Tablet PO (08:26)
[2020-10-10] MEDS: ferrous sulfate EC 325 mg Tablet PO ×2 (08:26→17:52)
[2020-10-10] MEDS: pantoprazole DR 40 mg Tablet PO (08:26)
[2020-10-10] MEDS: folic acid 1 mg Tablet PO (08:26)
--- NOTE | 2020-10-10 10:52 | PC.NURSE ---
pt blood pressure on vitals cart was 74/54 when checked manually it was 82/50, notified Dr. Prather he ordered pt to have normal saline 500ml bolus and recheck blood pressure which was 84/58, Dr. Prather stated blood pressure is to be rechecked in 1 hour.
[2020-10-10 12:01] LABS: Glucose Point of Care 135 mg/dL (70-110)
[2020-10-10 12:30] LABS: Cortisol Random 22.78 ug/mL (2.47-19.5)
--- NOTE | 2020-10-10 12:55 | P.PN_ITS ---
Subjective Subjective: Interval history: Patient has remained intermittently hypotensive inspite of fluid challenges.Though she deny any chest pain, sob. Has remained afebrile, other vitals are stable. Labs reviewed. Medications: Reviewed: Yes Vitals/I&O/Wt Last Vital Signs Temp 97.8 F 10/10/20 11:22 Pulse 90 10/10/20 11:22 Resp 18 10/10/20 11:22 BP 90/61 10/10/20 11:22 Pulse Ox 97 10/10/20 11:22 10/09/20 10/10/20 10/10/20 22:59 06:59 14:59 Intake Total 100 / 220 420 / 640 Output Total 800 / 800 1575 / 2375 Balance -700 / -580 -1155 / -1735 Weight last 48 hrs Weight 111.493 kg Weight 113.489 kg Physical Exam Const: COMMON NORMALS: patient oriented x3 HENMT: COMMON NORMALS: normocephalic, atraumatic and external ears normal HEAD & SCALP: normocephalic and atraumatic EXTERNAL EAR: Yes external ears normal Eye: GENERAL EYE: appearance normal, both eyes and all related structures Chest: COMMONS NORMALS: normal inspection of the chest CHEST: Yes Symmetrical chest wall rise Resp: COMMON NORMALS: normal respiratory effort and clear to auscultation bilaterally EFFORT & INSPECTION: Yes symmetric chest movement AUSCULTATION: clear to auscultation bilaterally Cardio: COMMON NORMALS: regular rate, regular rhythm, S1 normal heart sound present, S2 normal heart sound present, No gallops present (Cardio), No murmurs present (Cardio), No rub (Cardio) and Peripheral pulses 2+ throughout RATE: regular rate RHYTHM: regular rhythm HEART SOUNDS: S1 normal heart sound present and S2 normal heart sound present PERIPHERAL PULSES: Peripheral pulses 2+ throughout GI: COMMON NORMALS: Normal to inspection, nondistended, normoactive bowel sounds present, Soft to palpation, non-tender, No hepatosplenomegaly present and no masses AUSCULTATION: Yes normoactive bowel sounds PALPATION: Yes Soft to palpation and Yes No hepatosplenomegaly present RECTAL EXAM: deferred Extremity: NARRATIVE EXTREMITY EXAM: bilateral pedal edema. No cyanosis no calf tenderness bilaterally. The dressing on the left knee is dry and clean. OTHER: bilateral pedal edema. No cyanosis no calf tenderness bilaterally. The dressing on the left knee is dry and clean. Neuro: COMMON NORMALS: patient oriented x3 Urinary Catheter Management^: [place]: Cath Placed During This Visit: yes, but has since been removed by the nurse Reason for Continuing Indwelling Catheter: Accurate Measurement of Urinary Output in Critically Ill Patients Urinary Catheter Date of Insertion: 09/30/20 Urinary Catheter Time of Insertion: 00:30 Date Urinary Catheter Removed: 10/01/20 Time Urinary Catheter Discontinued: 06:34 Data : 10/09/20 05:34 10/09/20 05:34 Micro: Microbiology 10/06/20 16:10 Gram Stain - Final Knee - Left Wound Culture - Final 10/06/20 16:10 Anaerobic Culture - Preliminary Knee - Left A&P Assessment and plan (1) Hypotension: Persistent hypotension. Weaned down slightly on pressor, but continues to require norepinephrine. This morning at 3.5 mcg. Mean atrial pressure is 70-77. Attempting to taper down further. Joint aspiration culture growing Staph aureus, strep agalactiae. Continues on vancomycin. Aztreonam. Vancomycin level is a little bit better at 12.5. Discussed with pharmacy vancomycin dose will be adjusted for a bit more aggressive therapy. Target level 15-20. Monitor levels and renal function. She is in positive balance. Had decent response to PRBC transfusion. Recheck hemoglobin level. Today she is noting some chest pain which appears to be musculoskeletal and/or pleuritic. Will check troponin EKG series. Chest x-ray. With persistent hy potension check echocardiogram. Continue attempts to wean off norepinephrine this morning. If unsuccessful may require stress dose steroid. Acute encephalopathy secondary to infection. Continue to reorient. She is anxious. Low-dose Ativan as needed for anxiety. Monitor response. Status: Acute (2) Septic arthritis of knee, left: Status post explantation of left knee hardware 09/30 and placement of antibiotic spacer. Continue IV antibiotics. Follow-up cultures. SA and GBS growing so far. Status: Acute Qualifiers: Septic arthritis organism: due to unspecified organism Qualified Code(s): M00.9 - Pyogenic arthritis, unspecified (3) Status post left knee replacement: Status: Acute (4) QIANA (acute kidney injury): QIANA on admission resolved. Monitor hemoglobin now given hypotension episodes. Hold losartan for now. Hold Lasix. Monitor urine output. Renal function. Avoid NSAIDs. Status: Acute (5) Current every day smoker: Encourage cessation. Status: Chronic (6) Coronary artery disease due to type 2 diabetes mellitus: Stenting in April, subsequently in June coronary angiography which showed some multifocal coronary disease, not requiring intervention. Continue aspirin, Plavix until at least if possible. Status: Acute (7) Chronic obstructive pulmonary disease, unspecified: Reports chronically on oxygen of 2 L. Currently appears at baseline. Does report some mild intermittent cough, intermittently productive. Some small airway inflammation noted on chest x-ray. Possibly mild COPD exacerbation. For now held off on steroids, but may need them for other reasons. Continue inhalers. Collect sputum culture. Rapid COVID-19 antigen test negative. Status: Acute Qualifiers: COPD type: unspecified COPD Qualified Code(s): J44.9 - Chronic obstructive pulmonary disease, unspecified (8) Essential hypertension: Monitor BPs Status: Chronic (9) Anemia: S/p 1 unit prbc. Recheck Hb tonight. On ASA, Brillinta. Continue for now. Check hemoccult. Status: Acute (10) Diabetes type 2, uncontrolled: Continue long-acting insulin. Sliding scale. If no lower BG values may tolerate moderate sliding scale. Status: Acute Qualifiers: Glycemic state: with hyperglycemia Qualified Code(s): E11.65 - Type 2 diabetes mellitus with hyperglycemia Additional A&P Information Hypotension: Persistent hypotension. Weaned down slightly on pressor, but continues to require norepinephrine. This morning at 3.5 mcg. Mean atrial pressure is 70-77. Attempting to taper down further. Joint aspiration culture growing Staph aureus, strep agalactiae. Continues on vancomycin. Aztreonam. Vancomycin level is a little bit better at 12.5. Discussed with pharmacy vancomycin dose will be adjusted for a bit more aggressive therapy. Target level 15-20. Monitor levels and renal function. She is in positive balance. Had decent response to PRBC transfusion. Recheck hemoglobin level. Today she is noting some chest pain which appears to be musculoskeletal and/or pleuritic. Will check troponin EKG series. Chest x-ray. With persistent hypotension check echocardiogram. Continue attempts to wean off norepinephrine this morning. If unsuccessful may require stress dose steroid. Acute encephalopathy secondary to infection. Continue to reorient. She is anxious. Low-dose Ativan as needed for anxiety. Monitor response. Status: Acute (2) Septic arthritis of knee, left: Status post explantation of left knee hardware 09/30 and placement of antibiotic spacer. Continue IV antibiotics. Follow-up cultures. SA and GBS growing so far. Status: Acute Qualifiers: Septic arthritis organism: due to unspecified organism Qualified Code(s): M00.9 - Pyogenic arthritis, unspecified (3) Status post left knee replacement: Status: Acute (4) QIANA (acute kidney injury): QIANA on admission resolved. Monitor hemoglobin now given hypotension episodes. Hold losartan for now. Hold Lasix. Monitor urine output. Renal function. Avoid NSAIDs. Status: Acute (5) Current every day smoker: Encourage cessation. Status: Chronic (6) Coronary artery disease due to type 2 diabetes mellitus: Stenting in April, subsequently in June coronary angiography which showed some multifocal coronary disease, not requiring intervention. Continue aspirin, Plavix until at least if possible. Status: Acute (7) Chronic obstructive pulmonary disease, unspecified: Reports chronically on oxygen of 2 L. Currently appears at baseline. Does report some mild intermittent cough, intermittently productive. Some small airway inflammation noted on chest x-ray. Possibly mild COPD exacerbation. For now held off on steroids, but may need them for other reasons. Continue inhalers. Collect sputum culture. Rapid COVID-19 antigen test negative. Status: Acute Qualifiers: COPD type: unspecified COPD Qualified Code(s): J44.9 - Chronic obstructive pulmonary disease, unspecified (8) Essential hypertension: Monitor BPs Status: Chronic (9) Anemia: S/p 1 unit prbc. Recheck Hb tonight. On ASA, Brillinta. Continue for now. Check hemoccult. Status: Acute (10) Diabetes type 2, uncontrolled: Continue long-acting insulin. Sliding scale. If no lower BG values may tolerate moderate sliding scale. Status: Acute Qualifiers: Glycemic state: with hyperglycemia Qualified Code(s): E11.65 - Type 2 diabetes mellitus with hyperglycemia Additional A&P Information Alk phos elevation: possibly related to recent knee surgery. Normal GGT Acute on chronic leukocytosis Thrombocytosis Mild hyponatremia Septic arthritis. Status post new I&D yesterday. New cultures are taken. Previous cultures are positive for MRSA and strep. Continue management with vancomycin. Aztreonam was added due to concerns of possible pneumonia. Patient was on aztrneonam from (09-30 to 10-09 ) Will start on levofloxacin 750 mg I.V Q24 H as well as imipenam given worseing leukocyotsos and persistnet hypotension and monitor ( 10/09) Monitor CBC for leukocytosis and thrombocytosis and CRP. Anemia. Overall stable. Fecal occult blood testing was negative. Has iron, folic acid and B12 borderline low levels. Replacing. Possible pneumonia versus atelectasis. Continue current antibiotics and incentive spirometry. Mobilization as much as possible provided limitations due to being in ICU and septic arthritis. Adrenal insufficiency? Will consider cosyntropin stimulation test. Blood pressure fluctuation has been noticed.We would like to avoid steroids due to infection and diabetes. Midodrine 5 mg TID ( 10/10 ) Altered mental status. Probably multifactorial including acute metabolic encephalopathy secondary to above. Improved significantly. I suspect it was at least partly related to medications, particularly Keppra. Improved with reducing the dose of Keppra. Acute kidney injury. Resolved. Monitor. Hypokalemia and hypomagnesemia. Replace and monitor Coronary artery disease. Stable. Continue medications including dual antiplatelet therapy. COPD. No evidence of acute exacerbation Diabetes. Continue current management. Adjust insulin as needed. DVT prophylaxis. Lovenox is on hold due to recent surgery. Discussed with Dr. Verma. We are waiting until the drainage from the surgical site is decreased. Discussed with the multidisciplinary team and the patient. She verbalized understanding and agreement. 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
--- NOTE | 2020-10-10 14:38 | PC.OT ---
Patient refused OT at this time.
[2020-10-10] MEDS: vancomycin 1,500 MG/300 ML PIGGYBACK 200 MG IV (15:07)
[2020-10-10 17:15] LABS: Glucose Point of Care 159 mg/dL (70-110)
[2020-10-10] MEDS: HYDROmorphone 1 mg/mL INJ 1 mL 0.5 MG IVP (20:38)
[2020-10-10 20:58] LABS: Glucose Point of Care 154 mg/dL (70-110)
[2020-10-10] MEDS: atorvastatin 40 mg Tablet PO (21:57)
[2020-10-10] MEDS: quetiapine 25 mg Tablet 50 MG PO (21:57)
[2020-10-10] MEDS: midodrine 5 mg TABLET PO (21:58)
[2020-10-10] MEDS: TRAMadol 50 mg Tablet PO (23:05)
[2020-10-11] VITALS (13 sets, daily range): BP systolic 81–162; BP diastolic 54–86; PULSE 83–100; RESP 16–20; TEMP 36.3–36.9; O2SAT 95–98
[2020-10-11] MEDS: TRAMadol 50 mg Tablet PO ×2 (05:00→20:17)
[2020-10-11 06:27] LABS: Basophils # 0.1 10^3/uL (0.0-0.1); Basophils % 0.9 %; Eosinophils # 1.3 10^3/uL (0.0-0.8); Eosinophils % 8.5 %; Hematocrit 25.3 % (37.0-47.0); Hemoglobin 7.3 g/dL (11.5-15.3); Lymphocytes # 3.6 10^3/uL (0.8-4.8); Lymphocytes % 23.7 %; Mean Corpuscular HGB Conc 28.9 g/dL (30.0-36.0); Mean Corpuscular Hemoglobin 25.7 pg (28.0-34.0); Mean Corpuscular Volume 89.1 fL (81-99); Mean Platelet Volume 8.9 fL (7.4-10.4); Monocytes # 1.4 10^3/uL (0.2-0.9); Monocytes % 9.3 %; Neutrophils % 54.5 %; Nucleated Red Blood Cells % 0.3 %; Platelet Count 912 10^3/cmm (130-400); Red Blood Count 2.84 10^6/uL (4.1-5.3); Red Cell Distribution Width 18.6 % (12.1-15.1)
--- NOTE | 2020-10-11 06:31 | PC.NURSE ---
Shift Summary Patient rested well. Complaints throughout the night of pain, pain medication given as blood pressure allowed, she was hypotensive at times. [place] drained well, good urine output.
[2020-10-11 06:56] LABS: Glucose Point of Care 133 mg/dL (70-110)
[2020-10-11] MEDS: aspirin 81 mg Chew Tablet PO (08:37)
[2020-10-11] MEDS: ferrous sulfate EC 325 mg Tablet PO ×2 (08:37→17:43)
[2020-10-11] MEDS: duloxetine 60 mg Capsule PO (08:37)
[2020-10-11] MEDS: levETIRAcetam 500 mg Tablet 750 MG PO ×2 (08:38→20:16)
[2020-10-11] MEDS: albuterol 8 gm MDI 2 PUFF INHALATION ×2 (08:39→20:42)
[2020-10-11] MEDS: cyanocobalamin 1,000 mcg Tablet 500 MCG PO (08:39)
[2020-10-11] MEDS: ranolazine (12HR) 500 mg Tablet 1000 MG PO ×2 (08:39→20:16)
[2020-10-11] MEDS: midodrine 5 mg TABLET PO ×3 (08:39→20:16)
[2020-10-11] MEDS: topiramate 25 mg Tablet PO ×2 (08:39→20:17)
[2020-10-11] MEDS: pantoprazole DR 40 mg Tablet PO (08:39)
[2020-10-11] MEDS: acetaminophen 325 mg Tablet 650 MG PO (08:39)
[2020-10-11] MEDS: folic acid 1 mg Tablet PO (08:39)
[2020-10-11] MEDS: vancomycin 1,500 MG/300 ML PIGGYBACK 200 MG IV (08:40)
[2020-10-11] MEDS: ticagrelor 90 mg Tablet PO ×2 (08:40→20:20)
[2020-10-11 10:59] LABS: Glucose Point of Care 220 mg/dL (70-110)
[2020-10-11 11:02] LABS: Anion Gap 14.7 (5-19); Blood Urea Nitrogen 5 mg/dL (6-20); Calcium 8.7 mg/dL (8.5-10.5); Carbon Dioxide 17 mmol/L (22-29); Chloride 108 mmol/L (98-107); Glomerular Filtration Rate 129.1 mL/min (90-130); Glucose 203 mg/dL (65-115); Osmolality Calculated 285 mOsm/kg (285-295); Potassium 3.7 mmol/L (3.5-5.1); Sodium 136 mmol/L (136-145)
--- NOTE | 2020-10-11 14:18 | P.PN_ITS ---
Subjective Subjective: Interval history: has denied any pain in her left knee.Leukocytosis is trending down,has remained afebrile. Other vitals and labs have been reviewed. Medications: Reviewed: Yes Vitals/I&O/Wt Last Vital Signs Temp 97.4 F L 10/11/20 10:56 Pulse 83 10/11/20 10:56 Resp 16 10/11/20 10:56 BP 145/64 10/11/20 10:56 Pulse Ox 96 10/11/20 10:56 10/10/20 10/11/20 10/11/20 22:59 06:59 14:59 Intake Total 760 / 860 200 / 1060 360 / 360 Output Total 1180 / 1180 1600 / 2780 Balance -420 / -320 -1400 / -1720 360 / 360 Weight last 48 hrs Weight 111.13 kg Weight 111.493 kg Physical Exam Const: COMMON NORMALS: patient oriented x3 HENMT: COMMON NORMALS: normocephalic, atraumatic and external ears normal HEAD & SCALP: normocephalic and atraumatic EXTERNAL EAR: Yes external ears normal Eye: GENERAL EYE: appearance normal, both eyes and all related structures Chest: COMMONS NORMALS: normal inspection of the chest CHEST: Yes Symmetrical chest wall rise Resp: COMMON NORMALS: normal respiratory effort and clear to auscultation bilaterally EFFORT & INSPECTION: Yes symmetric chest movement AUSCULTATION: clear to auscultation bilaterally Cardio: COMMON NORMALS: regular rate, regular rhythm, S1 normal heart sound present, S2 normal heart sound present, No gallops present (Cardio), No murmurs present (Cardio), No rub (Cardio) and Peripheral pulses 2+ throughout RATE: regular rate RHYTHM: regular rhythm HEART SOUNDS: S1 normal heart sound present and S2 normal heart sound present PERIPHERAL PULSES: Peripheral pulses 2+ throughout GI: COMMON NORMALS: Normal to inspection, nondistended, normoactive bowel sounds present, Soft to palpation, non-tender, No hepatosplenomegaly present and no masses AUSCULTATION: Yes normoactive bowel sounds PALPATION: Yes Soft to palpation and Yes No hepatosplenomegaly present RECTAL EXAM: deferred Extremity: NARRATIVE EXTREMITY EXAM: The dressing on the left knee is dry and clean. OTHER: bilateral pedal edema. No cyanosis no calf tenderness bilaterally. The dressing on the left knee is dry and clean. Neuro: COMMON NORMALS: patient oriented x3 Urinary Catheter Management^: [place]: Cath Placed During This Visit: yes, but has since been removed by the nurse Reason for Continuing Indwelling Catheter: Acute Urinary Retention or Obstruction Urinary Catheter Date of Insertion: 09/30/20 Urinary Catheter Time of Insertion: 00:30 Date Urinary Catheter Removed: 10/01/20 Time Urinary Catheter Discontinued: 06:34 Data : 10/11/20 05:58 10/11/20 10:17 Micro: Microbiology 10/06/20 16:10 Anaerobic Culture - Preliminary Knee - Left 10/06/20 16:10 Gram Stain - Final Knee - Left Wound Culture - Final A&P Assessment and plan (1) Hypotension: Persistent hypotension. Weaned down slightly on pressor, but continues to require norepinephrine. This morning at 3.5 mcg. Mean atrial pressure is 70-77. Attempting to taper down further. Joint aspiration culture growing Staph aureus, strep agalactiae. Continues on vancomycin. Aztreonam. Vancomycin level is a little bit better at 12.5. Discussed with pharmacy vancomycin dose will be adjusted for a bit more aggressive therapy. Target level 15-20. Monitor levels and renal function. She is in positive balance. Had decent response to PRBC transfusion. Recheck hemoglobin level. Today she is noting some chest pain which appears to be musculoskeletal and/or pleuritic. Will check troponin EKG series. Chest x-ray. With persistent hypotension check echocardiogram. Continue attempts to wean off norepinephrine this morning. If unsuccessful may require stress dose steroid. Acute encephalopathy secondary to infection. Continue to reorient. She is anxious. Low-dose Ativan as needed for anxiety. Monitor response. Status: Acute (2) Septic arthritis of knee, left: Status post explantation of left knee hardware 09/30 and placement of antibiotic spacer. Continue IV antibiotics. Follow-up cultures. SA and GBS growing so far. Status: Acute Qualifiers: Septic arthritis organism: due to unspecified organism Qualified Code(s): M00.9 - Pyogenic arthritis, unspecified (3) Status post left knee replacement: Status: Acute (4) QIANA (acute kidney injury): QIANA on admission resolved. Monitor hemoglobin now given hypotension episodes. Hold losartan for now. Hold Lasix. Monitor urine output. Renal function. Avoid NSAIDs. Status: Acute (5) Current every day smoker: Encourage cessation. Status: Chronic (6) Coronary artery disease due to type 2 diabetes mellitus: Stenting in April, subsequently in June coronary angiography which showed some multifocal coronary disease, not requiring intervention. Continue aspirin, Plavix until at least if possible. Status: Acute (7) Chronic obstructive pulmonary disease, unspecified: Reports chronically on oxygen of 2 L. Currently appears at baseline. Does report some mild intermittent cough, intermittently productive. Some small airway inflammation noted on chest x-ray. Possibly mild COPD exacerbation. For now held off on steroids, but may need them for other reasons. Continue inh nadeen. Collect sputum culture. Rapid COVID-19 antigen test negative. Status: Acute Qualifiers: COPD type: unspecified COPD Qualified Code(s): J44.9 - Chronic obstructive pulmonary disease, unspecified (8) Essential hypertension: Monitor BPs Status: Chronic (9) Anemia: S/p 1 unit prbc. Recheck Hb tonight. On ASA, Brillinta. Continue for now. Check hemoccult. Status: Acute (10) Diabetes type 2, uncontrolled: Continue long-acting insulin. Sliding scale. If no lower BG values may tolerate moderate sliding scale. Status: Acute Qualifiers: Glycemic state: with hyperglycemia Qualified Code(s): E11.65 - Type 2 diabetes mellitus with hyperglycemia Additional A&P Information Hypotension: Persistent hypotension. Weaned down slightly on pressor, but continues to require norepinephrine. This morning at 3.5 mcg. Mean atrial pressure is 70-77. Attempting to taper down further. Joint aspiration culture growing Staph aureus, strep agalactiae. Continues on vancomycin. Aztreonam. Vancomycin level is a little bit better at 12.5. Discussed with pharmacy vancomycin dose will be adjusted for a bit more aggressive therapy. Target level 15-20. Monitor levels and renal function. She is in positive balance. Had decent response to PRBC transfusion. Recheck hemoglobin level. Today she is noting some chest pain which appears to be musculoskeletal and/or pleuritic. Will check troponin EKG series. Chest x-ray. With persistent hypotension check echocardiogram. Continue attempts to wean off norepinephrine this morning. If unsuccessful may require stress dose steroid. Acute encephalopathy secondary to infection. Continue to reorient. She is anxious. Low-dose Ativan as needed for anxiety. Monitor response. Status: Acute (2) Septic arthritis of knee, left: Status post explantation of left knee hardware 09/30 and placement of antibiotic spacer. Continue IV antibiotics. Follow-up cultures. SA and GBS growing so far. Status: Acute Qualifiers: Septic arthritis organism: due to unspecified organism Qualified Code(s): M00.9 - Pyogenic arthritis, unspecified (3) Status post left knee replacement: Status: Acute (4) QIANA (acute kidney injury): QIANA on admission resolved. Monitor hemoglobin now given hypotension episodes. Hold losartan for now. Hold Lasix. Monitor urine output. Renal function. Avoid NSAIDs. Status: Acute (5) Current every day smoker: Encourage cessation. Status: Chronic (6) Coronary artery disease due to type 2 diabetes mellitus: Stenting in April, subsequently in June coronary angiography which showed some multifocal coronary disease, not requiring intervention. Continue aspirin, Plavix until at least if possible. Status: Acute (7) Chronic obstructive pulmonary disease, unspecified: Reports chronically on oxygen of 2 L. Currently appears at baseline. Does report some mild intermittent cough, intermittently productive. Some small airway inflammation noted on chest x-ray. Possibly mild COPD exacerbation. For now held off on steroids, but may need them for other reasons. Continue inhalers. Collect sputum culture. Rapid COVID-19 antigen test negative. Status: Acute Qualifiers: COPD type: unspecified COPD Qualified Code(s): J44.9 - Chronic obstructive pulmonary disease, unspecified (8) Essential hypertension: Monitor BPs Status: Chronic (9) Anemia: S/p 1 unit prbc. Recheck Hb tonight. On ASA, Brillinta. Continue for now. Check hemoccult. Status: Acute (10) Diabetes type 2, uncontrolled: Continue long-acting insulin. Sliding scale. If no lower BG values may tolerate moderate sliding scale. Status: Acute Qualifiers: Glycemic state: with hyperglycemia Qualified Code(s): E11.65 - Type 2 diabetes mellitus with hyperglycemia Additional A&P Information Alk phos elevation: possibly related to recent knee surgery. Normal GGT Acute on chronic leukocytosis Thrombocytosis Mild hyponatremia Septic arthritis. Status post new I&D yesterday. New cultures are taken. P revious cultures are positive for MRSA and strep. Continue management with vancomycin. Aztreonam was added due to concerns of possible pneumonia. Patient was on aztrneonam from (09-30 to 10-09 ) Will start on levofloxacin 750 mg I.V Q24 H as well as imipenam given worseing leukocyotsos and persistnet hypotension and monitor ( 10/09) Monitor CBC for leukocytosis and thrombocytosis and CRP. Anemia. Overall stable. Fecal occult blood testing was negative. Has iron, folic acid and B12 borderline low levels. Replacing. Possible pneumonia versus atelectasis. Continue current antibiotics and incentive spirometry. Mobilization as much as possible provided limitations due to being in ICU and septic arthritis. Adrenal insufficiency? Will consider cosyntropin stimulation test. Blood pressure fluctuation has been noticed.We would like to avoid steroids due to infection and diabetes. Midodrine 5 mg TID ( 10/10 ) Altered mental status. Probably multifactorial including acute metabolic encephalopathy secondary to above. Improved significantly. I suspect it was at least partly related to medications, particularly Keppra. Improved with reducing the dose of Keppra. Acute kidney injury. Resolved. Monitor. Hypokalemia and hypomagnesemia. Replace and monitor Coronary artery disease. Stable. Continue medications including dual antiplatelet therapy. COPD. No evidence of acute exacerbation Diabetes. Continue current management. Adjust insulin as needed. DVT prophylaxis. Lovenox is on hold due to recent surgery. Discussed with Dr. Verma. We are waiting until the drainage from the surgical site is decreased. Discussed with the multidisciplinary team and the patient. She verbalized understanding and agreement. Attestations Medical Necessity Statement*: Patient needs to be in hospital for the management of septic arthritis. Coding Level of Care Code Acute [facility] [employer] for [facility] Diagnoses Hypotension I95.9 Septic arthritis of knee, left M00.9 Septic arthritis organism: due to unspecified organism Status post left knee replacement Z96.652 QIANA (acute kidney injury) N17.9 Current every day smoker F17.200 Coronary artery disease due to type 2 diabetes mellitus E11.59; I25.10 Chronic obstructive pulmonary disease, unspecified J44.9 COPD type: unspecified COPD Essential hypertension I10 Anemia D64.9 Diabetes type 2, uncontrolled E11.65 Glycemic state: with hyperglycemia
[2020-10-11] MEDS: HYDROmorphone 1 mg/mL INJ 1 mL 0.5 MG IVP ×2 (15:41→22:02)
[2020-10-11 16:58] LABS: Glucose Point of Care 175 mg/dL (70-110)
[2020-10-11] MEDS: quetiapine 25 mg Tablet 50 MG PO (20:17)
[2020-10-11] MEDS: atorvastatin 40 mg Tablet PO (20:17)
[2020-10-11 20:27] LABS: Glucose Point of Care 161 mg/dL (70-110)
[2020-10-11] MEDS: levofloxacin-dextrose 5 % 750 MG/150 ML PREMIX 100 MG IV (22:03)
[2020-10-12] VITALS (14 sets, daily range): BP systolic 80–137; BP diastolic 57–87; PULSE 94–107; RESP 16–22; TEMP 36.4–36.8; O2SAT 95–99
[2020-10-12] MEDS: vancomycin 1,500 MG/300 ML PIGGYBACK 200 MG IV ×2 (01:10→20:04)
--- NOTE | 2020-10-12 05:45 | PC.NURSE ---
Shift Summary Patient rested much better tonight compared to last night. Minimal complaints of pain, PICC line flushed easily and SOPHY infused without difficulty. Patient did often ask to go home to her son. Reoriented to being in the hospital. Patient's son called at 0230, stating that patient told a nurse yesterday to come and pick him up so he could come stay with her in the hospital I asked if a nurse called and told him this or his mom, he reports that patient did. He tells me that he is rarely left alone at home, so that is why patient is so concerned about him. Patient's mom has been with her son at home, but left yesterday he says. Would probably benefit both patient and son to talk to each other this morning.
[2020-10-12 06:23] LABS: Glucose Point of Care 156 mg/dL (70-110)
[2020-10-12 06:30] LABS: Basophils # 0.1 10^3/uL (0.0-0.1); Basophils % 0.8 %; Eosinophils # 1.1 10^3/uL (0.0-0.8); Eosinophils % 7.8 %; Hematocrit 25.3 % (37.0-47.0); Hemoglobin 7.4 g/dL (11.5-15.3); Lymphocytes # 3.2 10^3/uL (0.8-4.8); Lymphocytes % 22.4 %; Mean Corpuscular HGB Conc 29.2 g/dL (30.0-36.0); Mean Corpuscular Hemoglobin 25.9 pg (28.0-34.0); Mean Corpuscular Volume 88.5 fL (81-99); Mean Platelet Volume 8.5 fL (7.4-10.4); Monocytes # 1.3 10^3/uL (0.2-0.9); Monocytes % 9.3 %; Neutrophils # 8.08 10^3/uL (1.8-7.7); Nucleated Red Blood Cells % 0.2 %; Platelet Count 926 10^3/cmm (130-400); Red Blood Count 2.86 10^6/uL (4.1-5.3); Red Cell Distribution Width 18.5 % (12.1-15.1); White Blood Count 14.2 10^3/uL (4.0-10.0)
[2020-10-12 06:50] LABS: Blood Urea Nitrogen 5 mg/dL (6-20); Calcium 8.7 mg/dL (8.5-10.5); Carbon Dioxide 20 mmol/L (22-29); Chloride 108 mmol/L (98-107); Glomerular Filtration Rate 129.1 mL/min (90-130); Glucose 152 mg/dL (65-115); Osmolality Calculated 284 mOsm/kg (285-295); Sodium 137 mmol/L (136-145)
[2020-10-12 07:06] LABS: Anion Gap 12.7 (5-19); Potassium 3.7 mmol/L (3.5-5.1)
[2020-10-12] MEDS: albuterol 8 gm MDI 2 PUFF INHALATION ×2 (08:16→19:34)
[2020-10-12] MEDS: HYDROmorphone 1 mg/mL INJ 1 mL 0.5 MG IVP (09:24)
[2020-10-12] MEDS: pantoprazole DR 40 mg Tablet PO (09:27)
[2020-10-12] MEDS: levETIRAcetam 500 mg Tablet 750 MG PO ×2 (09:27→20:04)
[2020-10-12] MEDS: midodrine 5 mg TABLET PO (09:27)
[2020-10-12] MEDS: cyanocobalamin 1,000 mcg Tablet 500 MCG PO (09:28)
[2020-10-12] MEDS: folic acid 1 mg Tablet PO (09:28)
[2020-10-12] MEDS: topiramate 25 mg Tablet PO ×2 (09:29→20:05)
[2020-10-12] MEDS: aspirin 81 mg Chew Tablet PO (09:29)
[2020-10-12] MEDS: duloxetine 60 mg Capsule PO (09:30)
[2020-10-12] MEDS: ticagrelor 90 mg Tablet PO ×2 (09:30→20:09)
[2020-10-12] MEDS: ferrous sulfate EC 325 mg Tablet PO ×2 (09:31→18:26)
--- NOTE | 2020-10-12 10:11 | DCPLANNER ---
Updated Pg 2 of IM and attempted to call SisterMike Dumont to discuss it. No answer, left a detailed message and our phone number encouraging her to call back with any questions.
[2020-10-12] MEDS: ranolazine (12HR) 500 mg Tablet 1000 MG PO ×2 (10:55→20:08)
[2020-10-12 12:40] LABS: Glucose Point of Care 158 mg/dL (70-110)
--- NOTE | 2020-10-12 13:23 | PM.PN ---
Subjective Subjective: Interval history: wants to go home, her lt knee wound looks a lot better per orthopedic. Dressing changed. Vitals and labs have been reviewed. Medications: Reviewed: Yes Vitals/I&O/Wt Last Vital Signs Temp 98.2 F 10/12/20 11:54 Pulse 96 10/12/20 11:54 Resp 17 10/12/20 11:54 BP 116/87 10/12/20 11:54 Pulse Ox 95 10/12/20 11:54 10/11/20 10/12/20 10/12/20 22:59 06:59 14:59 Intake Total 220 / 980 100 / 1080 240 / 240 Output Total 1000 / 1000 700 / 700 Balance 220 / 980 -900 / 80 -460 / -460 Weight last 48 hrs Weight 111.13 kg Physical Exam Const: COMMON NORMALS: patient oriented x3 HENMT: COMMON NORMALS: normocephalic, atraumatic and external ears normal HEAD & SCALP: normocephalic and atraumatic EXTERNAL EAR: Yes external ears normal Eye: GENERAL EYE: appearance normal, both eyes and all related structures Chest: COMMONS NORMALS: normal inspection of the chest CHEST: Yes Symmetrical chest wall rise Resp: COMMON NORMALS: normal respiratory effort and clear to auscultation bilaterally EFFORT & INSPECTION: Yes symmetric chest movement AUSCULTATION: clear to auscultation bilaterally Cardio: COMMON NORMALS: regular rate, regular rhythm, S1 normal heart sound present, S2 normal heart sound present, No gallops present (Cardio), No murmurs present (Cardio), No rub (Cardio) and Peripheral pulses 2+ throughout RATE: regular rate RHYTHM: regular rhythm HEART SOUNDS: S1 normal heart sound present and S2 normal heart sound present PERIPHERAL PULSES: Peripheral pulses 2+ throughout GI: COMMON NORMALS: Normal to inspection, nondistended, normoactive bowel sounds present, Soft to palpation, non-tender, No hepatosplenomegaly present and no masses AUSCULTATION: Yes normoactive bowel sounds PALPATION: Yes Soft to palpation and Yes No hepatosplenomegaly present RECTAL EXAM: deferred Extremity: COMMON NORMALS: no clubbing, cyanosis or edema and no pedal edema NARRATIVE EXTREMITY EXAM: The dressing on the left knee is dry and clean. OTHER: The dressing on the left knee is dry and clean. Neuro: COMMON NORMALS: patient oriented x3 Urinary Catheter Management^: [place]: Cath Placed During This Visit: yes, but has since been removed by the nurse Reason for Continuing Indwelling Catheter: Acute Urinary Retention or Obstruction Urinary Catheter Date of Insertion: 09/30/20 Urinary Catheter Time of Insertion: 00:30 Date Urinary Catheter Removed: 10/01/20 Time Urinary Catheter Discontinued: 06:34 Data : 10/12/20 06:12 10/12/20 06:12 Micro: Microbiology 10/06/20 16:10 Anaerobic Culture - Preliminary Knee - Left A&P Assessment and plan (1) Hypotension: Persistent hypotension. Weaned down slightly on pressor, but continues to require norepinephrine. This morning at 3.5 mcg. Mean atrial pressure is 70-77. Attempting to taper down further. Joint aspiration culture growing Staph aureus, strep agalactiae. Continues on vancomycin. Aztreonam. Vancomycin level is a little bit better at 12.5. Discussed with pharmacy vancomycin dose will be adjusted for a bit more aggressive therapy. Target level 15-20. Monitor levels and renal function. She is in positive balance. Had decent response to PRBC transfusion. Recheck hemoglobin level. Today she is noting some chest pain which appears to be musculoskeletal and/or pleuritic. Will check troponin EKG series. Chest x-ray. With persistent hypotension check echocardiogram. Continue attempts to wean off norepinephrine this morning. If unsuccessful may require stress dose steroid. Acute encephalopathy secondary to infection. Continue to reorient. She is anxious. Low-dose Ativan as needed for anxiety. Monitor response. Status: Acute (2) Septic arthritis of knee, left: Status post explantation of left knee hardware 09/30 and placement of antibiotic spacer. Continue IV antibiotics. Follow-up cultures. SA and GBS growing so far. Status: Acute Qualifiers: Septic arthritis organism: due to unspecified organism Qualified Code(s): M00.9 - Pyogenic arthritis, unspecified (3) Status post left knee replacement: Status: Acute (4) QIANA (acute kidney injury): QIANA on admission resolved. Monitor hemoglobin now given hypotension episodes. Hold losartan for now. Hold Lasix. Monitor urine output. Renal function. Avoid NSAIDs. Status: Acute (5) Current every day smoker: Encourage cessation. Status: Chronic (6) Coronary artery disease due to type 2 diabetes mellitus: Stenting in April, subsequently in June coronary angiography which showed some multifocal coronary disease, not requiring intervention. Continue aspirin, Plavix until at least if possible. Status: Acute (7) Chronic obstructive pulmonary disease, unspecified: Reports chronically on oxygen of 2 L. Currently appears at baseline. Does report some mild intermittent cough, intermittently productive. Some small airway inflammation noted on chest x-ray. Possibly mild COPD exacerbation. For now held off on steroids, but may need them for other reasons. Continue inhalers. Collect sputum culture. Rapid COVID-19 antigen test negative. Status: Acute Qualifiers: COPD type: unspecified COPD Qualified Code(s): J44.9 - Chronic obstructive pulmonary disease, unspecified (8) Essential hypertension: Monitor BPs Status: Chronic (9) Anemia: S/p 1 unit prbc. Recheck Hb tonight. On ASA, Brillinta. Continue for now. Check hemoccult. Status: Acute (10) Diabetes type 2, uncontrolled: Continue long-acting insulin. Sliding scale. If no lower BG values may tolerate moderate sliding scale. Status: Acute Qualifiers: Glycemic state: with hyperglycemia Qualified Code(s): E11.65 - Type 2 diabetes mellitus with hyperglycemia Additional A&P Information Hypotension: Persistent hypotension. Weaned down slightly on pressor, but continues to require norepinephrine. This morning at 3.5 mcg. Mean atrial pressure is 70-77. Attempting to taper down further. Joint aspiration culture growing Staph aureus, strep agalactiae. Continues on vancomycin. Aztreonam. Vancomycin level is a little bit better at 12.5. Discussed with pharmacy vancomycin dose will be adjusted for a bit more aggressive therapy. Target level 15-20. Monitor levels and renal function. She is in positive balance. Had decent response to PRBC transfusion. Recheck hemoglobin level. Today she is noting some chest pain which appears to be musculoskeletal and/or pleuritic. Will check troponin EKG series. Chest x-ray. With persistent hypotension check echocardiogram. Continue attempts to wean off norepinephrine this morning. If unsuccessful may require stress dose steroid. Acute encephalopathy secondary to infection. Continue to reorient. She is anxious. Low-dose Ativan as needed for anxiety. Monitor response. Status: Acute (2) Septic arthritis of knee, left: Status post explantation of left knee hardware 09/30 and placement of antibiotic spacer. Continue IV antibiotics. Follow-up cultures. SA and GBS growing so far. Status: Acute Qualifiers: Septic arthritis organism: due to unspecified organism Qualified Code(s): M00.9 - Pyogenic arthritis, unspecified (3) Status post left knee replacement: Status: Acute (4) QIANA (acute kidney injury): QIANA on admission resolved. Monitor hemoglobin now given hypotension episodes. Hold losartan for now. Hold Lasix. Monitor urine output. Renal function. Avoid NSAIDs. Status: Acute (5) Current every day smoker: Encourage cessation. Status: Chronic (6) Coronary artery disease due to type 2 diabetes mellitus: Stenting in April, subsequently in June coronary angiography which showed some multifocal coronary disease, not requiring intervention. Continue aspirin, Plavix until at least if possible. Status: Acute (7) Chronic obstructive pulmonary disease, unspecified: Reports chronically on oxygen of 2 L. Currently appears at baseline. Does report some mild intermittent cough, intermittently productive. Some small airway inflammation noted on chest x-ray. Possibly mild COPD exacerbation. For now held off on steroids, but may need them for other reasons. Continue inhalers. Collect sputum culture. Rapid COVID-19 antigen test negative. Status: Acute Qualifiers: COPD type: unspecified COPD Qualified Code(s): J44.9 - Chronic obstructive pulmonary disease, unspecified (8) Essential hypertension: Monitor BPs Status: Chronic (9) Anemia: S/p 1 unit prbc. Recheck Hb tonight. On ASA, Brillinta. Continue for now. Check hemoccult. Status: Acute (10) Diabetes type 2, uncontrolled: Continue long-acting insulin. Sliding scale. If no lower BG values may tolerate moderate sliding scale. Status: Acute Qualifiers: Glycemic state: with hyperglycemia Qualified Code(s): E11.65 - Type 2 diabetes mellitus with hyperglycemia Additional A&P Information Alk phos elevation: possibly related to recent knee surgery. Normal GGT Acute on chronic leukocytosis Thrombocytosis Mild hyponatremia Septic arthritis. Status post new I&D yesterday. New cultures are taken. Previous cultures are positive for MRSA and strep. Continue management with vancomycin.She will need 6 weeks of I.V abxs as outpatient. Aztreonam was added due to concerns of possible pneumonia. Patient was on aztrneonam from (09-30 to 10-09 ) Will start on levofloxacin 750 mg I.V Q24 H as well as imipenam given worseing leukocyotsos and persistnet hypotension and monitor ( 10/09). cURREN Monitor CBC for leukocytosis and thrombocytosis and CRP. Anemia. Overall stable. Fecal occult blood testing was negative. Has iron, folic acid and B12 borderline low levels. Replacing. Possible pneumonia versus atelectasis. Continue current antibiotics and incentive spirometry. Mobilization as much as possible provided limitations due to being in ICU and septic arthritis. Adrenal insufficiency? Will consider cosyntropin stimulation test. Blood pressure fluctuation has been noticed.We would like to avoid steroids due to infection and diabetes. Midodrine changed from 5 mg TID to 5 MG DAILY ( 10/11 ) Altered mental status. Probably multifactorial including acute metabolic encephalopathy secondary to above. Improved significantly. I suspect it was at least partly related to medications, particularly Keppra. Improved with reducing the dose of Keppra. Acute kidney injury. Resolved. Monitor. Hypokalemia and hypomagnesemia. Replace and monitor Coronary artery disease. Stable. Continue medications including dual antiplatelet therapy. COPD. No evidence of acute exacerbation Diabetes. Continue current management. Adjust insulin as needed. DVT prophylaxis. Lovenox is on hold due to recent surgery. Discussed with Dr. Verma. We are waiting until the drainage from the surgical site is decreased. Discussed with the multidisciplinary team and the patient. She verbalized understanding and agreement. Attestations Medical Necessity Statement*: Patient needs to be in hospital for the mangement of LT knee septic arthritis Coding Level of Care Code Acute [employer] for [facility] Fw Exam Comprehensive Diagnoses Hypotension I95.9 Septic arthritis of knee, left M00.9 Septic arthritis organism: due to unspecified organism Status post left knee replacement Z96.652 QIANA (acute kidney injury) N17.9 Current every day smoker F17.200 Coronary artery disease due to type 2 diabetes mellitus E11.59; I25.10 Chronic obstructive pulmonary disease, unspecified J44.9 COPD type: unspecified COPD Essential hypertension I10 Anemia D64.9 Diabetes type 2, uncontrolled E11.65 Glycemic state: with hyperglycemia
--- NOTE | 2020-10-12 14:30 | PM.PN ---
Subjective Subjective: Interval history: Dressing changed. Patient complains of pain. Scared at appearance of knee. Vitals/I&O/Wt Last Vital Signs Temp 98.2 F 10/12/20 11:54 Pulse 96 10/12/20 11:54 Resp 17 10/12/20 11:54 BP 116/87 10/12/20 11:54 Pulse Ox 95 10/12/20 11:54 10/11/20 10/12/20 10/12/20 22:59 06:59 14:59 Intake Total 220 / 980 100 / 1080 240 / 240 Output Total 1000 / 1000 700 / 700 Balance 220 / 980 -900 / 80 -460 / -460 Weight last 48 hrs Weight 245 lb Physical Exam Narrative: EXAM NARRATIVE: Much less swelling left knee. No drainage. Urinary Catheter Management^: [place]: Cath Placed During This Visit: yes, but has since been removed by the nurse Reason for Continuing Indwelling Catheter: Acute Urinary Retention or Obstruction Urinary Catheter Date of Insertion: 09/30/20 Urinary Catheter Time of Insertion: 00:30 Date Urinary Catheter Removed: 10/01/20 Time Urinary Catheter Discontinued: 06:34 Data : 10/12/20 06:12 10/12/20 06:12 Micro: Microbiology 10/06/20 16:10 Anaerobic Culture - Preliminary Knee - Left A&P Assessment and plan (1) QIANA (acute kidney injury): Status: Acute (2) Septic arthritis of knee, left: Knee looks a lot better. Will need 6 weeks IV antibiotics. Paient wishes discharge home but this may not be possible. Status: Acute Qualifiers: Septic arthritis organism: due to unspecified organism Qualified Code(s): M00.9 - Pyogenic arthritis, unspecified Attestations Medical Necessity Statement*: As per medicine Coding Level of Care Code Acute [employer] Engine [employer] for [facility] Diagnoses QIANA (acute kidney injury) N17.9 Septic arthritis of knee, left M00.9 Septic arthritis organism: due to unspecified organism
--- NOTE | 2020-10-12 15:01 | PC.OT ---
OT tx attempted. Physician and nursing working with pt changing dressing and pt is very vocal and resisting tx. OT to be withheld at this time.
[2020-10-12] MEDS: LORazepam 2 mg/mL INJ 1 mL 0.5 MG IVP (15:21)
[2020-10-12 17:53] LABS: Glucose Point of Care 140 mg/dL (70-110)
[2020-10-12] MEDS: atorvastatin 40 mg Tablet PO (20:05)
[2020-10-12] MEDS: quetiapine 25 mg Tablet 50 MG PO (20:05)
[2020-10-12 20:48] LABS: Glucose Point of Care 174 mg/dL (70-110)
--- NOTE | 2020-10-12 21:09 | PC.NURSE ---
Family called, updated them on patients condition accordingly.
--- NOTE | 2020-10-12 23:36 | PC.NURSE ---
Addendum entered by Thor Steen RN 10/12/20 23:39: Patient could use a sitter. Will continue to monitor. Original Note: Patient had the IV line wrapped around her with the IV pump turned off. Flushed line, turned pump back on. Calmed patient down.
[2020-10-13] VITALS (12 sets, daily range): BP systolic 86–126; BP diastolic 43–89; PULSE 87–104; RESP 14–19; TEMP 36.3–36.8; O2SAT 93–100
[2020-10-13] MEDS: levofloxacin-dextrose 5 % 750 MG/150 ML PREMIX 100 MG IV ×2 (00:32→23:10)
--- NOTE | 2020-10-13 01:23 | PC.NURSE ---
Addendum entered by Thor Steen RN 10/13/20 01:38: Patient's L knee started to bleed due to the activity. Quickly subsided after the patient was able to lay down and relax. Original Note: The patient was attempting to get out of bed, when this nurse walked in. Patient was confused and agitated. Continuelly attempting to leave the bed to use the bathroom, all the while the patient was yelling for Chay and yelling at nursing staff. Patient was also pulling at reyes and PICC line. This nurse called the Dr and an order of Olanzapine 10mg IM was given, read back successful. Patient now appears to be sleeping in bed. Will continue to monitor.
--- NOTE | 2020-10-13 04:54 | PC.NURSE ---
Tone, demeanor and overall voice changes noticed in the patient. This nurse noticed three different changes. One with a voice that is softer, cooperative, and childlike demeanor. One that is agitated, loud and uncooperative, and aggressive. The last appears to be normal for her age.
--- NOTE | 2020-10-13 05:50 | NUR.SHIFT ---
At this moment the patient is cooperative. See pervious notes for more detailed information.
[2020-10-13 06:51] LABS: Glucose Point of Care 157 mg/dL (70-110)
[2020-10-13] MEDS: albuterol 8 gm MDI 2 PUFF INHALATION (08:22)
[2020-10-13] MEDS: cyanocobalamin 1,000 mcg Tablet 500 MCG PO (08:36)
[2020-10-13] MEDS: ticagrelor 90 mg Tablet PO ×2 (08:36→23:11)
[2020-10-13] MEDS: duloxetine 60 mg Capsule PO (08:37)
[2020-10-13] MEDS: aspirin 81 mg Chew Tablet PO (08:37)
[2020-10-13] MEDS: ferrous sulfate EC 325 mg Tablet PO ×2 (08:37→18:39)
[2020-10-13] MEDS: levETIRAcetam 500 mg Tablet 750 MG PO ×2 (08:37→20:52)
[2020-10-13] MEDS: midodrine 5 mg TABLET PO (08:39)
[2020-10-13] MEDS: pantoprazole DR 40 mg Tablet PO (08:39)
[2020-10-13] MEDS: folic acid 1 mg Tablet PO (08:39)
[2020-10-13] MEDS: ranolazine (12HR) 500 mg Tablet 1000 MG PO ×2 (08:40→20:52)
[2020-10-13] MEDS: topiramate 25 mg Tablet PO ×2 (08:42→20:52)
[2020-10-13 10:25] LABS: Basophils # 0.2 10^3/uL (0.0-0.1); Basophils % 1.2 %; Eosinophils # 0.9 10^3/uL (0.0-0.8); Eosinophils % 6.8 %; Hematocrit 26.9 % (37.0-47.0); Hemoglobin 7.8 g/dL (11.5-15.3); Lymphocytes # 2.8 10^3/uL (0.8-4.8); Lymphocytes % 21.2 %; Mean Corpuscular Hemoglobin 25.7 pg (28.0-34.0); Mean Corpuscular Volume 88.8 fL (81-99); Mean Platelet Volume 8.5 fL (7.4-10.4); Monocytes # 1.1 10^3/uL (0.2-0.9); Monocytes % 8.7 %; Neutrophils # 7.78 10^3/uL (1.8-7.7); Neutrophils % 59.7 %; Nucleated Red Blood Cells % 0 %; Platelet Count 968 10^3/cmm (130-400); Red Blood Count 3.03 10^6/uL (4.1-5.3); Red Cell Distribution Width 18.5 % (12.1-15.1)
[2020-10-13 10:54] LABS: Anion Gap 15.8 (5-19); Blood Urea Nitrogen 6 mg/dL (6-20); Calcium 9.1 mg/dL (8.5-10.5); Carbon Dioxide 20 mmol/L (22-29); Chloride 109 mmol/L (98-107); Glomerular Filtration Rate 129.1 mL/min (90-130); Glucose 126 mg/dL (65-115); Osmolality Calculated 291 mOsm/kg (285-295); Potassium 3.8 mmol/L (3.5-5.1); Sodium 141 mmol/L (136-145)
[2020-10-13 11:39] LABS: Glucose Point of Care 176 mg/dL (70-110)
--- NOTE | 2020-10-13 15:25 | P.PN_ITS ---
Subjective Subjective: Interval history: Dressing changed today.No drainage , Swelling decreased. Per Dr. Verma : wound vac placement today Patient agrees to go to SNF. Vitals and labs reviewed Medications: Reviewed: Yes Medication Review Details: Generic Name Dose Route Start Last Admin Trade Name Freq PRN Reason Stop Dose Admin Acetaminophen 650 mg 09/29/20 19:25 10/08/20 13:40 Acetaminophen 32 5 Mg Tablet PO 650 mg Q6H PRN Administration Mild/Mod Pain Or Temp >/= 101 Albuterol Sulfate 2 puff 09/29/20 19:25 10/08/20 08:44 Albuterol 8 Gm M di INHALATION 2 puff QID PRN Administration shortness of zuri th or wheezing Aspirin 81 mg 09/30/20 08:00 10/08/20 08:10 Aspirin 81 Mg Ch ew Tablet PO 81 mg DAILY@08 YUSUF Administration Atorvastatin Calci um 40 mg 09/29/20 21:00 10/07/20 20:27 Atorvastatin 40 Mg Tablet PO 40 mg DAILY@ YUSUF Administration Duloxetine HCl 60 mg 09/30/20 08:00 10/08/20 08:11 Duloxetine 60 Mg Capsule PO 60 mg DAILY@08 YUSUF Administration Folic Acid 1 mg 10/05/20 09:00 10/08/20 08:11 Folic Acid 1 Mg Tablet PO 1 mg DAILY YUSUF Administration Aztreonam 2,000 mg / Sodium 100 mls @ 200 mls /hr 09/30/20 01:00 10/08/20 12:29 Chloride IV Infused Q8H YUSUF Infusion Protocol Norepinephrine Bit artrate 4 mg 254 mls @ 0 mls/h r 10/01/20 09:15 10/03/20 04:31 / Dextrose IV Infused .Q0M YUSUF Titration Protocol Per Protocol Vancomycin/PEG/NAD A/Lysine/Water 1,500 mg in 300 m ls @ 250 mls/hr 10/06/20 02:00 10/08/20 09:09 Vancocin IV 200 mls/hr Q18H YUSUF Administration Insulin Aspart 0 unit 09/29/20 21:00 10/08/20 12:29 Insulin Aspart 1 00 Unit/1 Ml SUBCUT Not Given WM&BEDTIME YUSUF Protocol Levetiracetam 750 mg 10/05/20 21:00 10/08/20 08:10 Levetiracetam 50 0 Mg Tablet PO 750 mg BID@ YUSUF Administration Lorazepam 0.5 mg 10/05/20 11:44 10/07/20 17:30 Lorazepam 2 Mg/M l Inj 1 Ml IM 0.5 mg Q6H PRN Administration ANXIETY Pantoprazole Sodiu m 40 mg 09/30/20 08:00 10/08/20 08:[address] 40 Mg Tablet PO 40 mg DAILY@08 YUSUF Administration Quetiapine Fumarat e 50 mg 09/29/20 21:00 10/07/20 20:27 Quetiapine 25 Mg Tablet PO 50 mg BEDTIME@ YUSUF Administration Ranolazine 1,000 mg 09/29/20 21:00 10/08/20 08:12 Ranolazine (12hr ) 500 Mg Tablet PO 1,000 mg BID@ YUSUF Administration Fluticasone/Salmet odette 1 puff 09/29/20 20:00 10/08/20 08:44 Fluticasone-Salm eterol 500-50 Disk us INHALATION 1 puff Q12H YUSUF Administration Ticagrelor 90 mg 09/29/20 21:00 10/08/20 08:11 Ticagrelor 90 Mg Tablet PO 90 mg BID@ YUSUF Administration Topiramate 25 mg 09/29/20 21:00 10/08/20 08:10 Topiramate 25 Mg Tablet PO 25 mg BID@ YUSUF Administration Vitals/I&O/Wt Last Vital Signs Temp 97.4 F L 10/13/20 12:00 Pulse 97 10/13/20 12:00 Resp 16 10/13/20 12:00 BP 105/66 10/13/20 12:00 Pulse Ox 98 10/13/20 12:00 10/13/20 10/13/20 10/13/20 06:59 14:59 22:59 Intake Total 100 / 900 Output Total 550 / 1700 Balance -450 / -800 Weight last 48 hrs Weight 107.456 kg Physical Exam Const: COMMON NORMALS: patient oriented x3 HENMT: COMMON NORMALS: normocephalic, atraumatic and external ears normal HEAD & SCALP: normocephalic and atraumatic EXTERNAL EAR: Yes external ears normal Eye: GENERAL EYE: appearance normal, both eyes and all related structures Chest: COMMONS NORMALS: normal inspection of the chest CHEST: Yes Symmetrical chest wall rise Resp: COMMON NORMALS: clear to auscultation bilaterally EFFORT & INSPECTION : Yes symmetric chest movement AUSCULTATION: clear to auscultation bilaterally Cardio: COMMON NORMALS: regular rate, regular rhythm, S1 normal heart sound present, S2 normal heart sound present and Peripheral pulses 2+ throughout RATE: regular rate RHYTHM: regular rhythm HEART SOUNDS: S1 normal heart sound present and S2 normal heart sound present PERIPHERAL PULSES: Peripheral pulses 2+ throughout GI: COMMON NORMALS: Normal to inspection, nondistended, normoactive bowel sounds present, Soft to palpation, non-tender, No hepatosplenomegaly present and no masses AUSCULTATION: Yes normoactive bowel sounds PALPATION: Yes Soft to palpation and Yes No hepatosplenomegaly present RECTAL EXAM: deferred Extremity: COMMON NORMALS: no clubbing, cyanosis or edema and no pedal edema NARRATIVE EXTREMITY EXAM: The dressing on the left knee is dry and clean. OTHER: No drainage from lt knee wound Neuro: COMMON NORMALS: patient oriented x3 Urinary Catheter Management^: [place]: Cath Placed During This Visit: yes, but has since been removed by the nurse Reason for Continuing Indwelling Catheter: Acute Urinary Retention or Obstruction Urinary Catheter Date of Insertion: 09/30/20 Urinary Catheter Time of Insertion: 00:30 Date Urinary Catheter Removed: 10/01/20 Time Urinary Catheter Discontinued: 06:34 Data : 10/13/20 10:10 10/13/20 10:10 Micro: Microbiology 10/06/20 16:10 Anaerobic Culture - Preliminary Knee - Left A&P Assessment and plan (1) Hypotension: Persistent hypotension. Weaned down slightly on pressor, but continues to require norepinephrine. This morning at 3.5 mcg. Mean atrial pressure is 70-77. Attempting to taper down further. Joint aspiration culture growing Staph aureus, strep agalactiae. Continues on vancomycin. Aztreonam. Vancomycin level is a little bit better at 12.5. Discussed with pharmacy vancomycin dose will be adjusted for a bit more aggressive therapy. Target level 15-20. Monitor levels and renal function. She is in positive balance. Had decent response to PRBC transfusion. Recheck hemoglobin level. Today she is noting some chest pain which appears to be musculoskeletal and/or pleuritic. Will check troponin EKG series. Chest x-ray. With persistent hypotension check echocardiogram. Continue attempts to wean off norepinephrine this morning. If unsuccessful may require stress dose steroid. Acute encephalopathy secondary to infection. Continue to reorient. She is anxious. Low-dose Ativan as needed for anxiety. Monitor response. Status: Acute (2) Septic arthritis of knee, left: Status post explantation of left knee hardware 09/30 and placement of antibiotic spacer. Continue IV antibiotics. Follow-up cultures. SA and GBS growing so far. Status: Acute Qualifiers: Septic arthritis organism: due to unspecified organism Qualified Code(s): M00.9 - Pyogenic arthritis, unspecified (3) Status post left knee replacement: Status: Acute (4) QIANA (acute kidney injury): QIANA on admission resolved. Monitor hemoglobin now given hypotension episodes. Hold losartan for now. Hold Lasix. Monitor urine output. Renal function. Avoid NSAIDs. Status: Acute (5) Current every day smoker: Encourage cessation. Status: Chronic (6) Coronary artery disease due to type 2 diabetes mellitus: Stenting in April, subsequently in June coronary angiography which showed some multifocal coronary disease, not requiring intervention. Continue aspirin, Plavix until at least if possible. Status: Acute (7) Chronic obstructive pulmonary disease, unspecified: Reports chronically on oxygen of 2 L. Currently appears at baseline. Does report some mild intermittent cough, intermittently productive. Some small airway inflammation noted on chest x-ray. Possibly mild COPD exacerbation. For now held off on steroids, but may need them for other reasons. Continue inha lers. Collect sputum culture. Rapid COVID-19 antigen test negative. Status: Acute Qualifiers: COPD type: unspecified COPD Qualified Code(s): J44.9 - Chronic obstructive pulmonary disease, unspecified (8) Essential hypertension: Monitor BPs Status: Chronic (9) Anemia: S/p 1 unit prbc. Recheck Hb tonight. On ASA, Brillinta. Continue for now. Check hemoccult. Status: Acute (10) Diabetes type 2, uncontrolled: Continue long-acting insulin. Sliding scale. If no lower BG values may tolerate moderate sliding scale. Status: Acute Qualifiers: Glycemic state: with hyperglycemia Qualified Code(s): E11.65 - Type 2 diabetes mellitus with hyperglycemia Additional A&P Information Hypotension: Persistent hypotension. Weaned down slightly on pressor, but continues to require norepinephrine. This morning at 3.5 mcg. Mean atrial pressure is 70-77. Attempting to taper down further. Joint aspiration culture growing Staph aureus, strep agalactiae. Continues on vancomycin. Aztreonam. Vancomycin level is a little bit better at 12.5. Discussed with pharmacy vancomycin dose will be adjusted for a bit more aggressive therapy. Target level 15-20. Monitor levels and renal function. She is in positive balance. Had decent response to PRBC transfusion. Recheck hemoglobin level. Today she is noting some chest pain which appears to be musculoskeletal and/or pleuritic. Will check troponin EKG series. Chest x-ray. With persistent hypotension check echocardiogram. Continue attempts to wean off norepinephrine this morning. If unsuccessful may require stress dose steroid. Acute encephalopathy secondary to infection. Continue to reorient. She is anxious. Low-dose Ativan as needed for anxiety. Monitor response. Status: Acute (2) Septic arthritis of knee, left: Status post explantation of left knee hardware 09/30 and placement of antibiotic spacer. Continue IV antibiotics. Follow-up cultures. SA and GBS growing so far. Status: Acute Qualifiers: Septic arthritis organism: due to unspecified organism Qualified Code(s): M00.9 - Pyogenic arthritis, unspecified (3) Status post left knee replacement: Status: Acute (4) QIANA (acute kidney injury): QIANA on admission resolved. Monitor hemoglobin now given hypotension episodes. Hold losartan for now. Hold Lasix. Monitor urine output. Renal function. Avoid NSAIDs. Status: Acute (5) Current every day smoker: Encourage cessation. Status: Chronic (6) Coronary artery disease due to type 2 diabetes mellitus: Stenting in April, subsequently in June coronary angiography which showed some multifocal coronary disease, not requiring intervention. Continue aspirin, Plavix until at least if possible. Status: Acute (7) Chronic obstructive pulmonary disease, unspecified: Reports chronically on oxygen of 2 L. Currently appears at baseline. Does report some mild intermittent cough, intermittently productive. Some small airway inflammation noted on chest x-ray. Possibly mild COPD exacerbation. For now held off on steroids, but may need them for other reasons. Continue inhalers. Collect sputum culture. Rapid COVID-19 antigen test negative. Status: Acute Qualifiers: COPD type: unspecified COPD Qualified Code(s): J44.9 - Chronic obstructive pulmonary disease, unspecified (8) Essential hypertension: Monitor BPs Status: Chronic (9) Anemia: S/p 1 unit prbc. Recheck Hb tonight. On ASA, Brillinta. Continue for now. Check hemoccult. Status: Acute (10) Diabetes type 2, uncontrolled: Continue long-acting insulin. Sliding scale. If no lower BG values may tolerate moderate sliding scale. Status: Acute Qualifiers: Glycemic state: with hyperglycemia Qualified Code(s): E11.65 - Type 2 diabetes mellitus with hyperglycemia Additional A&P Information Alk phos elevation: possibly related to recent knee surgery. Normal GGT Acute on chronic leukocytosis Thrombocytosis Mild hyponatremia Septic arthritis. Status post new I&D yesterday. New cultures are taken. Pr evious cultures are positive for MRSA and strep. Continue management with vancomycin.She will need 6 weeks of I.V abxs as outpatient. Aztreonam was added due to concerns of possible pneumonia. Patient was on aztrneonam from (09-30 to 10-09 ) Will start on levofloxacin 750 mg I.V Q24 H as well as imipenam given worseing leukocyotsos and persistnet hypotension and monitor ( 10/09). Monitor CBC for leukocytosis and thrombocytosis and CRP. Anemia. Overall stable. Fecal occult blood testing was negative. Has iron, folic acid and B12 borderline low levels. Replacing. Possible pneumonia versus atelectasis. Continue current antibiotics and incentive spirometry. Mobilization as much as possible provided limitations due to being in ICU and septic arthritis. Adrenal insufficiency? Will consider cosyntropin stimulation test. Blood pressure fluctuation has been noticed.We would like to avoid steroids due to infection and diabetes. Midodrine changed from 5 mg TID to 5 MG DAILY ( 10/11 ) Altered mental status. Probably multifactorial including acute metabolic encephalopathy secondary to above. Improved significantly. I suspect it was at least partly related to medications, particularly Keppra. Improved with reducing the dose of Keppra. Acute kidney injury. Resolved. Monitor. Hypokalemia and hypomagnesemia. Replace and monitor Coronary artery disease. Stable. Continue medications including dual antiplatelet therapy. COPD. No evidence of acute exacerbation Diabetes. Continue current management. Adjust insulin as needed. DVT prophylaxis. Lovenox is on hold due to recent surgery. Discussed with Dr. Verma. We are waiting until the drainage from the surgical site is decreased. Discussed with the multidisciplinary team and the patient. She verbalized understanding and agreement. Attestations Medical Necessity Statement*: Patient needs to be in hospital for the management of lt knee septic arthritis. 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
[2020-10-13] MEDS: vancomycin 1,500 MG/300 ML PIGGYBACK 200 MG IV (15:28)
[2020-10-13 18:06] LABS: Glucose Point of Care 158 mg/dL (70-110)
[2020-10-13] MEDS: atorvastatin 40 mg Tablet PO (20:52)
[2020-10-13] MEDS: quetiapine 25 mg Tablet 50 MG PO (20:52)
[2020-10-13] MEDS: acetaminophen 325 mg Tablet 650 MG PO (20:58)
[2020-10-13 22:03] LABS: Glucose Point of Care 177 mg/dL (70-110)
[2020-10-14] VITALS (13 sets, daily range): BP systolic 87–143; BP diastolic 56–75; PULSE 86–104; RESP 14–20; TEMP 36.4–37.1; O2SAT 95–100
[2020-10-14] MEDS: acetaminophen 325 mg Tablet 650 MG PO ×2 (03:48→10:33)
[2020-10-14 06:53] LABS: Glucose Point of Care 166 mg/dL (70-110)
--- NOTE | 2020-10-14 07:42 | NUR.SHIFT ---
The patient throughout the night has destroyed her room, due to staff not coming immediately to the patient when she yells, calls the photoradio operator, or hits the call light. The patient has thrown the rooms phone, tv remote, call light across the room. For example, this nurse would speak to the patient and from the time of walking from her room to the nurses station on [place], she would call the photoradio operator to speak with this nurse. The patient's pain was not controlled for most of the night, due to the patient having soft BP. However, towards the end of the shift, the patients BP elevated enough for this nurse to admin PO Hydromorphine per mar. Patient would benefit greatly from a sitter, however, due to current staffing this may not be possible.
[2020-10-14] MEDS: albuterol 8 gm MDI 2 PUFF INHALATION (08:23)
[2020-10-14] MEDS: aspirin 81 mg Chew Tablet PO (10:31)
[2020-10-14] MEDS: duloxetine 60 mg Capsule PO (10:32)
[2020-10-14] MEDS: levETIRAcetam 500 mg Tablet 750 MG PO ×2 (10:32→20:45)
[2020-10-14] MEDS: folic acid 1 mg Tablet PO (10:32)
[2020-10-14] MEDS: cyanocobalamin 1,000 mcg Tablet 500 MCG PO (10:33)
[2020-10-14] MEDS: pantoprazole DR 40 mg Tablet PO (10:33)
[2020-10-14] MEDS: midodrine 5 mg TABLET PO ×2 (10:34→19:02)
[2020-10-14] MEDS: vancomycin 1,500 MG/300 ML PIGGYBACK 200 MG IV ×2 (10:35→20:44)
[2020-10-14] MEDS: ranolazine (12HR) 500 mg Tablet 1000 MG PO ×2 (10:58→20:44)
[2020-10-14] MEDS: topiramate 25 mg Tablet PO ×2 (10:58→20:45)
[2020-10-14] MEDS: ticagrelor 90 mg Tablet PO ×2 (10:58→20:45)
[2020-10-14] MEDS: ferrous sulfate EC 325 mg Tablet PO ×2 (10:58→19:02)
[2020-10-14 11:43] LABS: Glucose Point of Care 197 mg/dL (70-110)
--- NOTE | 2020-10-14 12:22 | PM.PN ---
Subjective Subjective: Interval history: Ms. Ascencio is doing fine. Wound VAC has been placed. Minimal drainage seen. Denies any active complaints. Medications: Reviewed: Yes Medication Review Details: Generic Name Dose Route Start Last Admin Trade Name Freq PRN Reason Stop Dose Admin Acetaminophen 650 mg 09/29/20 19:25 10/08/20 13:40 Acetaminophen 32 5 Mg Tablet PO 650 mg Q6H PRN Administration Mild/Mod Pain Or Temp >/= 101 Albuterol Sulfate 2 puff 09/29/20 19:25 10/08/20 08:44 Albuterol 8 Gm M di INHALATION 2 puff QID PRN Administration shortness of zuri th or wheezing Aspirin 81 mg 09/30/20 08:00 10/08/20 08:10 Aspirin 81 Mg Ch ew Tablet PO 81 mg DAILY@08 YUSUF Administration Atorvastatin Calci um 40 mg 09/29/20 21:00 10/07/20 20:27 Atorvastatin 40 Mg Tablet PO 40 mg DAILY@21 YUSUF Administration Duloxetine HCl 60 mg 09/30/20 08:00 10/08/20 08:11 Duloxetine 60 Mg Capsule PO 60 mg DAILY@08 YUSUF Administration Folic Acid 1 mg 10/05/20 09:00 10/08/20 08:11 Folic Acid 1 Mg Tablet PO 1 mg DAILY YUSUF Administration Aztreonam 2,000 mg / Sodium 100 mls @ 200 mls /hr 09/30/20 01:00 10/08/20 12:29 Chloride IV Infused Q8H YUSUF Infusion Protocol Norepinephrine Bit artrate 4 mg 254 mls @ 0 mls/h r 10/01/20 09:15 10/03/20 04:31 / Dextrose IV Infused .Q0M YUSUF Titration Protocol Per Protocol Vancomycin/PEG/NAD A/Lysine/Water 1,500 mg in 300 m ls @ 250 mls/hr 10/06/20 02:00 10/08/20 09:09 Vancocin IV 200 mls/hr Q18H YUSUF Administration Insulin Aspart 0 unit 09/29/20 21:00 10/08/20 12:29 Insulin Aspart 1 00 Unit/1 Ml SUBCUT Not Given WM&BEDTIME YUSUF Protocol Levetiracetam 750 mg 10/05/20 21:00 10/08/20 08:10 Levetiracetam 50 0 Mg Tablet PO 750 mg BID@ YUSUF Administration Lorazepam 0.5 mg 10/05/20 11:44 10/07/20 17:30 Lorazepam 2 Mg/M l Inj 1 Ml IM 0.5 mg Q6H PRN Administration ANXIETY Pantoprazole Sodiu m 40 mg 09/30/20 08:00 10/08/20 08:[address] 40 Mg Tablet PO 40 mg DAILY@08 YUSUF Administration Quetiapine Fumarat e 50 mg 09/29/20 21:00 10/07/20 20:27 Quetiapine 25 Mg Tablet PO 50 mg BEDTIME@ YUSUF Administration Ranolazine 1,000 mg 09/29/20 21:00 10/08/20 08:12 Ranolazine (12hr ) 500 Mg Tablet PO 1,000 mg BID@ YUSUF Administration Fluticasone/Salmet odette 1 puff 09/29/20 20:00 10/08/20 08:44 Fluticasone-Salm eterol 500-50 Disk us INHALATION 1 puff Q12H YUSUF Administration Ticagrelor 90 mg 09/29/20 21:00 10/08/20 08:11 Ticagrelor 90 Mg Tablet PO 90 mg BID@ YUSUF Administration Topiramate 25 mg 09/29/20 21:00 10/08/20 08:10 Topiramate 25 Mg Tablet PO 25 mg BID@ YUSUF Administration Vitals/I&O/Wt Last Vital Signs Temp 98.7 F 10/14/20 10:59 Pulse 95 10/14/20 10:59 Resp 18 10/14/20 10:59 BP 143/66 10/14/20 10:59 Pulse Ox 98 10/14/20 10:59 10/13/20 10/14/20 10/14/20 22:59 06:59 14:59 Intake Total 220 / 620 100 / 720 240 / 240 Output Total 1200 / 1200 Balance 220 / 620 -1100 / -480 240 / 240 Weight last 48 hrs Weight 107.683 kg Weight 107.456 kg Physical Exam Const: COMMON NORMALS: patient oriented x3 HENMT: COMMON NORMALS: normocephalic, atraumatic and external ears normal HEAD & SCALP: normocephalic and atraumatic EXTERNAL EAR: Yes external ears normal Eye: GENERAL EYE: appearance normal, both eyes and all related structures Chest: COMMONS NORMALS: normal inspection of the chest CHEST: Yes Symmetrical chest wall rise Resp: COMMON NORMALS: normal respiratory effort and clear to auscultation bilaterally EFFORT & INSPECTION: Yes symmetric chest movement AUSCULTATION: clear to auscultation bilaterally Cardio: COMMON NORMALS: regular rate, regular rhythm, S1 normal heart sound present, S2 normal heart sound present, No gallops present (Cardio), No murmurs present (Cardio), No rub (Cardio) and Peripheral pulses 2+ throughout RATE: regular rate RHYTHM: regular rhythm HEART SOUNDS: S1 normal heart sound present and S2 normal heart sound present PERIPHERAL PULSES: Peripheral pulses 2+ throughout GI: COMMON NORMALS: Normal to inspection, nondistended, normoactive bowel sounds present, Soft to palpation, non-tender, No hepatosplenomegaly present and no masses AUSCULTATION: Yes normoactive bowel sounds PALPATION: Yes Soft to palpation and Yes No hepatosplenomegaly present RECTAL EXAM: deferred Extremity: COMMON NORMALS: no clubbing, cyanosis or edema and no pedal edema NARRATIVE EXTREMITY EXAM: The dressing on the left knee is dry and clean. OTHER: Wound VAC over left knee . Minimal drainage seen. Neuro: COMMON NORMALS: patient oriented x3 Urinary Catheter Management^: [place]: Reason for Continuing Indwelling Catheter: Acute Urinary Retention or Obstruction Urinary Catheter Date of Insertion: 09/30/20 Urinary Catheter Time of Insertion: 00:30 Date Urinary Catheter Removed: 10/01/20 Time Urinary Catheter Discontinued: 06:34 Data : 10/13/20 10:10 10/13/20 10:10 Micro: Microbiology 10/06/20 16:10 Anaerobic Culture - Final Knee - Left A&P Assessment and plan (1) Hypotension: Persistent hypotension. Weaned down slightly on pressor, but continues to require norepinephrine. This morning at 3.5 mcg. Mean atrial pressure is 70-77. Attempting to taper down further. Joint aspiration culture growing Staph aureus, strep agalactiae. Continues on vancomycin. Aztreonam. Vancomycin level is a little bit better at 12.5. Discussed with pharmacy vancomycin dose will be adjusted for a bit more aggressive therapy. Target level 15-20. Monitor levels and renal function. She is in positive balance. Had decent response to PRBC transfusion. Recheck hemoglobin level. Today she is noting some chest pain which appears to be musculoskeletal and/or pleuritic. Will check troponin EKG series. Chest x-ray. With persistent hypotension check echocardiogram. Continue attempts to wean off norepinephrine this morning. If unsuccessful may require stress dose steroid. Acute encephalopathy secondary to infection. Continue to reorient. She is anxious. Low-dose Ativan as needed for anxiety. Monitor response. Status: Acute (2) Septic arthritis of knee, left: Status post explantation of left knee hardware 09/30 and placement of antibiotic spacer. Continue IV antibiotics. Follow-up cultures. SA and GBS growing so far. Status: Acute Qualifiers: Septic arthritis organism: due to unspecified organism Qualified Code(s): M00.9 - Pyogenic arthritis, unspecified (3) Status post left knee replacement: Status: Acute (4) QIANA (acute kidney injury): QIANA on admission resolved. Monitor hemoglobin now given hypotension episodes. Hold losartan for now. Hold Lasix. Monitor urine output. Renal function. Avoid NSAIDs. Status: Acute (5) Current every day smoker: Encourage cessation. Status: Chronic (6) Coronary artery disease due to type 2 diabetes mellitus: Stenting in April, subsequently in June coronary angiography which showed some multifocal coronary disease, not requiring intervention. Continue aspirin, Plavix until at least if possible. Status: Acute (7) Chronic obstructive pulmonary disease, unspecified: Reports chronically on oxygen of 2 L. Currently appears at baseline. Does report some mild intermittent cough, intermittently productive. Some small airway inflammation noted on chest x-ray. Possibly mild COPD exacerbation. For now held off on steroids, but may need them for other reasons. Continue inhalers. Collect sputum culture. Rapid COVID-19 antigen test negative. Status: Acute Qualifiers: COPD type: unspecified COPD Qualified Code(s): J44.9 - Chronic obstructive pulmonary disease, unspecified (8) Essential hypertension: Monitor BPs Status: Chronic (9) Anemia: S/p 1 unit prbc. Recheck Hb tonight. On ASA, Brillinta. Continue for now. Check hemoccult. Status: Acute (10) Diabetes type 2, uncontrolled: Continue long-acting insulin. Sliding scale. If no lower BG values may tolerate moderate sliding scale. Status: Acute Qualifiers: Glycemic state: with hyperglycemia Qualified Code(s): E11.65 - Type 2 diabetes mellitus with hyperglycemia Additional A&P Information Hypotension: Persistent hypotension. Weaned down slightly on pressor, but continues to require norepinephrine. This morning at 3.5 mcg. Mean atrial pressure is 70-77. Attempting to taper down further. Joint aspiration culture growing Staph aureus, strep agalactiae. Continues on vancomycin. Aztreonam. Vancomycin level is a little bit better at 12.5. Discussed with pharmacy vancomycin dose will be adjusted for a bit more aggressive therapy. Target level 15-20. Monitor levels and renal function. She is in positive balance. Had decent response to PRBC transfusion. Recheck hemoglobin level. Today she is noting some chest pain which appears to be musculoskeletal and/or pleuritic. Will check troponin EKG series. Chest x-ray. With persistent hypotension check echocardiogram. Continue attempts to wean off norepinephrine this morning. If unsuccessful may require stress dose steroid. Acute encephalopathy secondary to infection. Continue to reorient. She is anxious. Low-dose Ativan as needed for anxiety. Monitor response. Status: Acute (2) Septic arthritis of knee, left: Status post explantation of left knee hardware 09/30 and placement of antibiotic spacer. Continue IV antibiotics. Follow-up cultures. SA and GBS growing so far. Status: Acute Qualifiers: Septic arthritis organism: due to unspecified organism Qualified Code(s): M00.9 - Pyogenic arthritis, unspecified (3) Status post left knee replacement: Status: Acute (4) QIANA (acute kidney injury): QIANA on admission resolved. Monitor hemoglobin now given hypotension episodes. Hold losartan for now. Hold Lasix. Monitor urine output. Renal function. Avoid NSAIDs. Status: Acute (5) Current every day smoker: Encourage cessation. Status: Chronic (6) Coronary artery disease due to type 2 diabetes mellitus: Stenting in April, subsequently in June coronary angiography which showed some multifocal coronary disease, not requiring intervention. Continue aspirin, Plavix until at least if possible. Status: Acute (7) Chronic obstructive pulmonary disease, unspecified: Reports chronically on oxygen of 2 L. Currently appears at baseline. Does report some mild intermittent cough, intermittently productive. Some small airway inflammation noted on chest x-ray. Possibly mild COPD exacerbation. For now held off on steroids, but may need them for other reasons. Continue inhalers. Collect sputum culture. Rapid COVID-19 antigen test negative. Status: Acute Qualifiers: COPD type: unspecified COPD Qualified Code(s): J44.9 - Chronic obstructive pulmonary disease, unspecified (8) Essential hypertension: Monitor BPs Status: Chronic (9) Anemia: S/p 1 unit prbc. Recheck Hb tonight. On ASA, Brillinta. Continue for now. Check hemoccult. Status: Acute (10) Diabetes type 2, uncontrolled: Continue long-acting insulin. Sliding scale. If no lower BG values may tolerate moderate sliding scale. Status: Acute Qualifiers: Glycemic state: with hyperglycemia Qualified Code(s): E11.65 - Type 2 diabetes mellitus with hyperglycemia Additional A&P Information Alk phos elevation: possibly related to recent knee surgery. Normal GGT Acute on chronic leukocytosis Thrombocytosis Mild hyponatremia Septic arthritis. Status post new I&D yesterday. New cultures are taken. Previous cultures are positive for MRSA and strep. Continue management with vancomycin.She will need 6 weeks of I.V abxs as outpatient. Aztreonam was added due to concerns of possible pneumonia. Patient was on aztrneonam from (09-30 to 10-09 ) Will start on levofloxacin 750 mg I.V Q24 H as well as imipenam given worseing leukocyotsis and persistnet hypotension and monitor ( 10/09). Monitor CBC for leukocytosis and thrombocytosis and CRP. Anemia. Overall stable. Fecal occult blood testing was negative. Has iron, folic acid and B12 borderline low levels. Replacing. Possible pneumonia versus atelectasis. Continue current antibiotics and incentive spirometry. Mobilization as much as possible provided limitations due to being in ICU and septic arthritis. Adrenal insufficiency? Will consider cosyntropin stimulation test. Blood pressure fluctuation has been noticed.We would like to avoid steroids due to infection and diabetes. Continue Midodrine 5 mg BID Altered mental status. Probably multifactorial including acute metabolic encephalopathy secondary to above. Improved significantly. I suspect it was at least partly related to medications, particularly Keppra. Improved with reducing the dose of Keppra. Acute kidney injury. Resolved. Monitor. Hypokalemia and hypomagnesemia. Replace and monitor Coronary artery disease. Stable. Continue medications including dual antiplatelet therapy. COPD. No evidence of acute exacerbation Diabetes. Continue current management. Adjust insulin as needed. DVT prophylaxis. Lovenox is on hold due to recent surgery. Discussed with Dr. Verma. We are waiting until the drainage from the surgical site is decreased. Discussed with the multidisciplinary team and the patient. She verbalized understanding and agreement. Attestations Medical Necessity Statement*: Patient needs to be in hospital for the management of lt knee septic arthritis. Coding Level of Care Code Acute Ebd Special Education Teacher for Nahed Fwd Diagnoses Hypotension I95.9 Septic arthritis of knee, left M00.9 Septic arthritis organism: due to unspecified organism Status post left knee replacement Z96.652 QIANA (acute kidney injury) N17.9 Current every day smoker F17.200 Coronary artery disease due to type 2 diabetes mellitus E11.59; I25.10 Chronic obstructive pulmonary disease, unspecified J44.9 COPD type: unspecified COPD Essential hypertension I10 Anemia D64.9 Diabetes type 2, uncontrolled E11.65 Glycemic state: with hyperglycemia
[2020-10-14 17:05] LABS: Glucose Point of Care 150 mg/dL (70-110)
[2020-10-14] MEDS: atorvastatin 40 mg Tablet PO (20:45)
[2020-10-14] MEDS: quetiapine 25 mg Tablet 50 MG PO (20:45)
[2020-10-14 22:05] LABS: Glucose Point of Care 178 mg/dL (70-110)
[2020-10-14] MEDS: levofloxacin-dextrose 5 % 750 MG/150 ML PREMIX 100 MG IV (22:54)
[2020-10-15] VITALS (10 sets, daily range): BP systolic 104–145; BP diastolic 64–81; PULSE 87–102; RESP 16–20; TEMP 36.3–36.8; O2SAT 96–98
[2020-10-15 05:49] LABS: Basophils # 0.2 10^3/uL (0.0-0.1); Basophils % 1.4 %; Eosinophils # 1.1 10^3/uL (0.0-0.8); Eosinophils % 9.8 %; Hematocrit 26.3 % (37.0-47.0); Hemoglobin 7.6 g/dL (11.5-15.3); Lymphocytes # 3.5 10^3/uL (0.8-4.8); Lymphocytes % 30.9 %; Mean Corpuscular HGB Conc 28.9 g/dL (30.0-36.0); Mean Corpuscular Hemoglobin 25.7 pg (28.0-34.0); Mean Corpuscular Volume 88.9 fL (81-99); Mean Platelet Volume 8.6 fL (7.4-10.4); Monocytes # 1.1 10^3/uL (0.2-0.9); Monocytes % 9.6 %; Neutrophils # 5.29 10^3/uL (1.8-7.7); Neutrophils % 47.1 %; Nucleated Red Blood Cells % 0 %; Platelet Count 924 10^3/cmm (130-400); Red Blood Count 2.96 10^6/uL (4.1-5.3); Red Cell Distribution Width 18.3 % (12.1-15.1); White Blood Count 11.2 10^3/uL (4.0-10.0)
[2020-10-15 06:14] LABS: Glucose Point of Care 152 mg/dL (70-110)
[2020-10-15 06:31] LABS: Alanine Aminotransferase 9 U/L (0-33); Albumin Level 2.8 g/dL (3.5-5.2); Alkaline Phosphatase 88 IU/L (35-105); Anion Gap 13.9 (5-19); Aspartate Amino Transferase 18 U/L (0-32); Blood Urea Nitrogen 6 mg/dL (6-20); Calcium 8.6 mg/dL (8.5-10.5); Carbon Dioxide 21 mmol/L (22-29); Chloride 111 mmol/L (98-107); Globulin 3.7 g/dL (1.3-4.6); Glomerular Filtration Rate 129.1 mL/min (90-130); Glucose 134 mg/dL (65-115); Osmolality Calculated 294 mOsm/kg (285-295); Potassium 3.9 mmol/L (3.5-5.1); Sodium 142 mmol/L (136-145); Total Bilirubin 0.2 mg/dL (0.15-1.2); Total Protein 6.5 g/dL (6.6-8.7)
--- NOTE | 2020-10-15 07:47 | PM.PN ---
Subjective Subjective: Interval history: Patient resting but awakens to voice. No pain this am Vitals/I&O/Wt Last Vital Signs Temp 97.3 F L 10/15/20 07:35 Pulse 92 10/15/20 07:35 Resp 18 10/15/20 07:35 BP 117/64 10/15/20 07:35 Pulse Ox 97 10/15/20 07:35 10/14/20 10/15/20 10/15/20 22:59 06:59 14:59 Intake Total 440 / 980 100 / 1080 Output Total 650 / 650 Balance -210 / 330 100 / 430 Weight last 48 hrs Weight 237 lb 6.4 oz Physical Exam Narrative: EXAM NARRATIVE: Wound vac patent, minimal drainage. No erythema R leg. No swelling. Urinary Catheter Management^: [place]: Cath Placed During This Visit: yes, but has since been removed by the nurse Reason for Continuing Indwelling Catheter: Acute Urinary Retention or Obstruction Urinary Catheter Date of Insertion: 09/30/20 Urinary Catheter Time of Insertion: 00:30 Date Urinary Catheter Removed: 10/01/20 Time Urinary Catheter Discontinued: 06:34 Data : 10/15/20 05:30 10/15/20 05:30 Micro: Microbiology 10/06/20 16:10 Anaerobic Culture - Final Knee - Left A&P Assessment and plan (1) Septic arthritis of knee, left: Status: Acute Qualifiers: Septic arthritis organism: due to unspecified organism Qualified Code(s): M00.9 - Pyogenic arthritis, unspecified (2) Status post left knee replacement: continued antibiotics per medicine. Continue WoundVac until drainage discontinued. I discussed with patient that if she wishes to save knee she will have to progress with weightbearing and range of motion. If she chooses not to cooperate with therapy it would be best to abandon salvage and proceed with arthrodesis. She seemed to believe she could comply with therapy. Status: Acute Attestations Medical Necessity Statement*: As per medicine Coding Level of Care Code Acute Supervising Librarian for Nahed Alcazar Diagnoses Septic arthritis of knee, left M00.9 Septic arthritis organism: due to unspecified organism Status post left knee replacement Z96.652
[2020-10-15] MEDS: vancomycin 1,500 MG/300 ML PIGGYBACK 200 MG IV ×2 (08:44→22:55)
[2020-10-15] MEDS: topiramate 25 mg Tablet PO ×2 (08:45→22:54)
[2020-10-15] MEDS: folic acid 1 mg Tablet PO (08:45)
[2020-10-15] MEDS: pantoprazole DR 40 mg Tablet PO (08:45)
[2020-10-15] MEDS: aspirin 81 mg Chew Tablet PO (08:45)
[2020-10-15] MEDS: midodrine 5 mg TABLET PO ×2 (08:46→18:35)
[2020-10-15] MEDS: duloxetine 60 mg Capsule PO (08:46)
[2020-10-15] MEDS: ferrous sulfate EC 325 mg Tablet PO ×2 (08:46→18:35)
[2020-10-15] MEDS: ticagrelor 90 mg Tablet PO ×2 (08:46→22:53)
[2020-10-15] MEDS: cyanocobalamin 1,000 mcg Tablet 500 MCG PO (08:47)
[2020-10-15] MEDS: levETIRAcetam 500 mg Tablet 750 MG PO ×2 (08:47→22:52)
[2020-10-15] MEDS: ranolazine (12HR) 500 mg Tablet 1000 MG PO ×2 (08:47→22:53)
[2020-10-15] MEDS: albuterol 8 gm MDI 2 PUFF INHALATION ×2 (09:19→20:50)
[2020-10-15 12:20] LABS: Glucose Point of Care 182 mg/dL (70-110)
[2020-10-15] MEDS: acetaminophen 325 mg Tablet 650 MG PO (12:28)
[2020-10-15 16:44] LABS: Glucose Point of Care 124 mg/dL (70-110)
--- NOTE | 2020-10-15 19:52 | PM.PN ---
Subjective Subjective: Interval history: is doing fine, no active complaints. Has remained afebrile, other vitals and labs have been reviewed. Medications: Reviewed: Yes Medication Review Details: Generic Name Dose Route Start Last Admin Trade Name Freq PRN Reason Stop Dose Admin Acetaminophen 650 mg 09/29/20 19:25 10/08/20 13:40 Acetaminophen 32 5 Mg Tablet PO 650 mg Q6H PRN Administration Mild/Mod Pain Or Temp >/= 101 Albuterol Sulfate 2 puff 09/29/20 19:25 10/08/20 08:44 Albuterol 8 Gm M di INHALATION 2 puff QID PRN Administration shortness of zuri th or wheezing Aspirin 81 mg 09/30/20 08:00 10/08/20 08:10 Aspirin 81 Mg Ch ew Tablet PO 81 mg DAILY@08 YUSUF Administration Atorvastatin Calci um 40 mg 09/29/20 21:00 10/07/20 20:27 Atorvastatin 40 Mg Tablet PO 40 mg DAILY@ YUSUF Administration Duloxetine HCl 60 mg 09/30/20 08:00 10/08/20 08:11 Duloxetine 60 Mg Capsule PO 60 mg DAILY@08 YUSUF Administration Folic Acid 1 mg 10/05/20 09:00 10/08/20 08:11 Folic Acid 1 Mg Tablet PO 1 mg DAILY YUSUF Administration Aztreonam 2,000 mg / Sodium 100 mls @ 200 mls /hr 09/30/20 01:00 10/08/20 12:29 Chloride IV Infused Q8H YUSUF Infusion Protocol Norepinephrine Bit artrate 4 mg 254 mls @ 0 mls/h r 10/01/20 09:15 10/03/20 04:31 / Dextrose IV Infused .Q0M YUSUF Titration Protocol Per Protocol Vancomycin/PEG/NAD A/Lysine/Water 1,500 mg in 300 m ls @ 250 mls/hr 10/06/20 02:00 10/08/20 09:09 Vancocin IV 200 mls/hr Q18H YUSUF Administration Insulin Aspart 0 unit 09/29/20 21:00 10/08/20 12:29 Insulin Aspart 1 00 Unit/1 Ml SUBCUT Not Given WM&BEDTIME YUSUF Protocol Levetiracetam 750 mg 10/05/20 21:00 10/08/20 08:10 Levetiracetam 50 0 Mg Tablet PO 750 mg BID@ YUSUF Administration Lorazepam 0.5 mg 10/05/20 11:44 10/07/20 17:30 Lorazepam 2 Mg/M l Inj 1 Ml IM 0.5 mg Q6H PRN Administration ANXIETY Pantoprazole Sodiu m 40 mg 09/30/20 08:00 10/08/20 08:[address] 40 Mg Tablet PO 40 mg DAILY@08 YUSUF Administration Quetiapine Fumarat e 50 mg 09/29/20 21:00 10/07/20 20:27 Quetiapine 25 Mg Tablet PO 50 mg BEDTIME@ YUSUF Administration Ranolazine 1,000 mg 09/29/20 21:00 10/08/20 08:12 Ranolazine (12hr ) 500 Mg Tablet PO 1,000 mg BID@ YUSUF Administration Fluticasone/Salmet odette 1 puff 09/29/20 20:00 10/08/20 08:44 Fluticasone-Salm eterol 500-50 Disk us INHALATION 1 puff Q12H YUSUF Administration Ticagrelor 90 mg 09/29/20 21:00 10/08/20 08:11 Ticagrelor 90 Mg Tablet PO 90 mg BID@ YUSUF Administration Topiramate 25 mg 09/29/20 21:00 10/08/20 08:10 Topiramate 25 Mg Tablet PO 25 mg BID@ YUSUF Administration Vitals/I&O/Wt Last Vital Signs Temp 98.2 F 10/15/20 15:26 Pulse 87 10/15/20 15:26 Resp 16 10/15/20 18:36 BP 104/73 10/15/20 15:26 Pulse Ox 98 10/15/20 18:36 10/15/20 10/15/20 10/15/20 06:59 14:59 22:59 Intake Total 200 / 1480 100 / 100 120 / 220 Output Total 850 / 850 Balance 200 / 830 100 / 100 -730 / -630 Weight last 48 hrs Weight 107.683 kg Physical Exam Const: COMMON NORMALS: patient oriented x3 HENMT: COMMON NORMALS: normocephalic and atraumatic HEAD & SCALP: normocephalic and atraumatic Resp: COMMON NORMALS: normal respiratory effort and clear to auscultation bilaterally EFFORT & INSPECTION: Yes symmetric chest movement AUSCULTATION: clear to auscultation bilaterally Cardio: COMMON NORMALS: regular rate, regular rhythm, S1 normal heart sound present, S2 normal heart sound present, No gallops present (Cardio), No murmurs present (Cardio), No rub (Cardio) and Peripheral pulses 2+ throughout RATE: regular rate RHYTHM: regular rhythm HEART SOUNDS: S1 normal heart sound present and S2 normal heart sound present PERIPHERAL PULSES: Peripheral pulses 2+ throughout GI: COMMON NORMALS: Normal to inspection, nondistended, normoactive bowel sounds present, Soft to palpation, non-tender, No hepatosplenomegaly present and no masses AUSCULTATION: Yes normoactive bowel sounds PALPATION: Yes Soft to palpation and Yes No hepatosplenomegaly present RECTAL EXAM: deferred Extremity: COMMON NORMALS: no clubbing, cyanosis or edema and no pedal edema NARRATIVE EXTREMITY EXAM: Wound vac patent, minimal drainage. No erythema R leg. No swelling. OTHER: Wound VAC over left knee . Minimal drainage seen. Neuro: COMMON NORMALS: patient oriented x3 Urinary Catheter Management^: [place]: Cath Placed During This Visit: yes, but has since been removed by the nurse Reason for Continuing Indwelling Catheter: Other Urinary Catheter Date of Insertion: 09/30/20 Urinary Catheter Time of Insertion: 00:30 Date Urinary Catheter Removed: 10/01/20 Time Urinary Catheter Discontinued: 06:34 Data : 10/15/20 05:30 10/15/20 05:30 A&P Assessment and plan (1) Hypotension: Persistent hypotension. Weaned down slightly on pressor, but continues to require norepinephrine. This morning at 3.5 mcg. Mean atrial pressure is 70-77. Attempting to taper down further. Joint aspiration culture growing Staph aureus, strep agalactiae. Continues on vancomycin. Aztreonam. Vancomycin level is a little bit better at 12.5. Discussed with pharmacy vancomycin dose will be adjusted for a bit more aggressive therapy. Target level 15-20. Monitor levels and renal function. She is in positive balance. Had decent response to PRBC transfusion. Recheck hemoglobin level. Today she is noting some chest pain which appears to be musculoskeletal and/or pleuritic. Will check troponin EKG series. Chest x-ray. With persistent hypotension check echocardiogram. Continue attempts to wean off norepinephrine this morning. If unsuccessful may require stress dose steroid. Acute encephalopathy secondary to infection. Continue to reorient. She is anxious. Low-dose Ativan as needed for anxiety. Monitor response. Status: Acute (2) Septic arthritis of knee, left: Status post explantation of left knee hardware 09/30 and placement of antibiotic spacer. Continue IV antibiotics. Follow-up cultures. SA and GBS growing so far. Status: Acute Qualifiers: Septic arthritis organism: due to unspecified organism Qualified Code(s): M00.9 - Pyogenic arthritis, unspecified (3) Status post left knee replacement: Status: Acute (4) QIANA (acute kidney injury): QIANA on admission resolved. Monitor hemoglobin now given hypotension episodes. Hold losartan for now. Hold Lasix. Monitor urine output. Renal function. Avoid NSAIDs. Status: Acute (5) Current every day smoker: Encourage cessation. Status: Chronic (6) Coronary artery disease due to type 2 diabetes mellitus: Stenting in April, subsequently in June coronary angiography which showed some multifocal coronary disease, not requiring intervention. Continue aspirin, Plavix until at least if possible. Status: Acute (7) Chronic obstructive pulmonary disease, unspecified: Reports chronically on oxygen of 2 L. Currently appears at baseline. Does report some mild intermittent cough, intermittently productive. Some small airway inflammation noted on chest x-ray. Possibly mild COPD exacerbation. For now held off on steroids, but may need them for other reasons. Continue inhalers. Collect sputum culture. Rapid COVID-19 antigen test negative. Status: Acute Qualifiers: COPD type: unspecified COPD Qualified Code(s): J44.9 - Chronic obstructive pulmonary disease, unspecified (8) Essential hypertension: Monitor BPs Status: Chronic (9) Anemia: S/p 1 unit prbc. Recheck Hb tonight. On ASA, Brillinta. Continue for now. Check hemoccult. Status: Acute (10) Diabetes type 2, uncontrolled: Continue long-acting insulin. Sliding scale. If no lower BG values may tolerate moderate sliding scale. Status: Acute Qualifiers: Glycemic state: with hyperglycemia Qualified Code(s): E11.65 - Type 2 diabetes mellitus with hyperglycemia Additional A&P Information Hypotension: Persistent hypotension. Weaned down slightly on pressor, but continues to require norepinephrine. This morning at 3.5 mcg. Mean atrial pressure is 70-77. Attempting to taper down further. Joint aspiration culture growing Staph aureus, strep agalactiae. Continues on vancomycin. Aztreonam. Vancomycin level is a little bit better at 12.5. Discussed with pharmacy vancomycin dose will be adjusted for a bit more aggressive therapy. Target level 15-20. Monitor levels and renal function. She is in positive balance. Had decent response to PRBC transfusion. Recheck hemoglobin level. Today she is noting some chest pain which appears to be musculoskeletal and/or pleuritic. Will check troponin EKG series. Chest x-ray. With persistent hypotension check echocardiogram. Continue attempts to wean off norepinephrine this morning. If unsuccessful may require stress dose steroid. Acute encephalopathy secondary to infection. Continue to reorient. She is anxious. Low-dose Ativan as needed for anxiety. Monitor response. Status: Acute (2) Septic arthritis of knee, left: Status post explantation of left knee hardware 09/30 and placement of antibiotic spacer. Continue IV antibiotics. Follow-up cultures. SA and GBS growing so far. Status: Acute Qualifiers: Septic arthritis organism: due to unspecified organism Qualified Code(s): M00.9 - Pyogenic arthritis, unspecified (3) Status post left knee replacement: Status: Acute (4) QIANA (acute kidney injury): QIANA on admission resolved. Monitor hemoglobin now given hypotension episodes. Hold losartan for now. Hold Lasix. Monitor urine output. Renal function. Avoid NSAIDs. Status: Acute (5) Current every day smoker: Encourage cessation. Status: Chronic (6) Coronary artery disease due to type 2 diabetes mellitus: Stenting in April, subsequently in June coronary angiography which showed some multifocal coronary disease, not requiring intervention. Continue aspirin, Plavix until at least October/November if possible. Status: Acute (7) Chronic obstructive pulmonary disease, unspecified: Reports chronically on oxygen of 2 L. Currently appears at baseline. Does report some mild intermittent cough, intermittently productive. Some small airway inflammation noted on chest x-ray. Possibly mild COPD exacerbation. For now held off on steroids, but may need them for other reasons. Continue inhalers. Collect sputum culture. Rapid COVID-19 antigen test negative. Status: Acute Qualifiers: COPD type: unspecified COPD Qualified Code(s): J44.9 - Chronic obstructive pulmonary disease, unspecified (8) Essential hypertension: Monitor BPs Status: Chronic (9) Anemia: S/p 1 unit prbc. Recheck Hb tonight. On ASA, Brillinta. Continue for now. Check hemoccult. Status: Acute (10) Diabetes type 2, uncontrolled: Continue long-acting insulin. Sliding scale. If no lower BG values may tolerate moderate sliding scale. Status: Acute Qualifiers: Glycemic state: with hyperglycemia Qualified Code(s): E11.65 - Type 2 diabetes mellitus with hyperglycemia Additional A&P Information Alk phos elevation: possibly related to recent knee surgery. Normal GGT Acute on chronic leukocytosis Thrombocytosis Mild hyponatremia Septic arthritis. Status post I&D . New cultures are taken. Previous cultures are positive for MRSA and strep. Continue management with vancomycin.She will need 6 weeks of Vacomycin I.V as outpatient. Aztreonam was added due to concerns of possible pneumonia. Patient was on aztrneonam from (09-30 to 10-09 ).Aztreonam was Dc on 10-09. on levofloxacin 750 mg I.V Q24 H as well as imipenam given worseing leukocyotsis and persistnet hypotension from ( 10/09). Monitor CBC for leukocytosis and thrombocytosis and CRP. Anemia. Overall stable. Fecal occult blood testing was negative. Has iron, folic acid and B12 borderline low levels. Replacing. Possible pneumonia versus atelectasis. Continue current antibiotics and incentive spirometry. Mobilization as much as possible provided limitations due to being in ICU and septic arthritis. Adrenal insufficiency? Will consider cosyntropin stimulation test. Blood pressure fluctuation has been noticed.We would like to avoid steroids due to infection and diabetes. Continue Midodrine 5 mg BID Altered mental status. Probably multifactorial including acute metabolic encephalopathy secondary to above. Improved significantly. I suspect it was at least partly related to medications, particularly Keppra. Improved with reducing the dose of Keppra. Acute kidney injury. Resolved. Monitor. Hypokalemia and hypomagnesemia. Replace and monitor Coronary artery disease. Stable. Continue medications including dual antiplatelet therapy. COPD. No evidence of acute exacerbation Diabetes. Continue current management. Adjust insulin as needed. DVT prophylaxis. Lovenox is on hold due to recent surgery. Discussed with Dr. Verma. We are waiting until the drainage from the surgical site is decreased. Disposition: Patient has been accepted for hospital to hospital transfer ( Acceping Physician ) Discussed with the multidisciplinary team and the patient. She verbalized understanding and agreement. Attestations Medical Necessity Statement*: Patient needs to be in hospital for the management of septic arthritis Coding Level of Care Code Acute Flux Core Welder for g Fwd Diagnoses Hypotension I95.9 Septic arthritis of knee, left M00.9 Septic arthritis organism: due to unspecified organism Status post left knee replacement Z96.652 QIANA (acute kidney injury) N17.9 Current every day smoker F17.200 Coronary artery disease due to type 2 diabetes mellitus E11.59; I25.10 Chronic obstructive pulmonary disease, unspecified J44.9 COPD type: unspecified COPD Essential hypertension I10 Anemia D64.9 Diabetes type 2, uncontrolled E11.65 Glycemic state: with hyperglycemia
[2020-10-15 20:33] LABS: Vancomycin Trough 15.6 ug/mL (10-15)
[2020-10-15 22:13] LABS: Glucose Point of Care 131 mg/dL (70-110)
[2020-10-15] MEDS: atorvastatin 40 mg Tablet PO (22:51)
[2020-10-15] MEDS: quetiapine 25 mg Tablet 50 MG PO (22:52)
[2020-10-16] VITALS (9 sets, daily range): BP systolic 101–159; BP diastolic 60–83; PULSE 86–93; RESP 18; TEMP 36.4–36.6; O2SAT 94–96
[2020-10-16] MEDS: levofloxacin-dextrose 5 % 750 MG/150 ML PREMIX 100 MG IV (01:50)
[2020-10-16 05:41] LABS: Basophils # 0.2 10^3/uL (0.0-0.1); Eosinophils # 0.9 10^3/uL (0.0-0.8); Eosinophils % 9.6 %; Hematocrit 27.9 % (37.0-47.0); Hemoglobin 8.1 g/dL (11.5-15.3); Lymphocytes # 2.9 10^3/uL (0.8-4.8); Lymphocytes % 32.7 %; Mean Corpuscular Hemoglobin 25.8 pg (28.0-34.0); Mean Corpuscular Volume 88.9 fL (81-99); Mean Platelet Volume 8.6 fL (7.4-10.4); Monocytes # 0.9 10^3/uL (0.2-0.9); Monocytes % 9.9 %; Neutrophils # 3.95 10^3/uL (1.8-7.7); Neutrophils % 44.3 %; Nucleated Red Blood Cells % 0 %; Platelet Count 906 10^3/cmm (130-400); Red Blood Count 3.14 10^6/uL (4.1-5.3); Red Cell Distribution Width 18.5 % (12.1-15.1); White Blood Count 8.9 10^3/uL (4.0-10.0)
[2020-10-16 06:05] LABS: Alanine Aminotransferase 12 U/L (0-33); Albumin Level 2.9 g/dL (3.5-5.2); Alkaline Phosphatase 94 IU/L (35-105); Anion Gap 13.6 (5-19); Aspartate Amino Transferase 14 U/L (0-32); Blood Urea Nitrogen 6 mg/dL (6-20); Calcium 8.9 mg/dL (8.5-10.5); Carbon Dioxide 22 mmol/L (22-29); Chloride 108 mmol/L (98-107); Globulin 3.6 g/dL (1.3-4.6); Glomerular Filtration Rate 129.1 mL/min (90-130); Glucose 125 mg/dL (65-115); Osmolality Calculated 289 mOsm/kg (285-295); Potassium 3.6 mmol/L (3.5-5.1); Sodium 140 mmol/L (136-145); Total Bilirubin 0.2 mg/dL (0.15-1.2); Total Protein 6.5 g/dL (6.6-8.7)
[2020-10-16 07:22] LABS: Glucose Point of Care 133 mg/dL (70-110)
[2020-10-16] MEDS: albuterol 8 gm MDI 2 PUFF INHALATION (08:00)
[2020-10-16] MEDS: ranolazine (12HR) 500 mg Tablet 1000 MG PO (08:52)
[2020-10-16] MEDS: duloxetine 60 mg Capsule PO (08:52)
[2020-10-16] MEDS: midodrine 5 mg TABLET PO (08:52)
[2020-10-16] MEDS: cyanocobalamin 1,000 mcg Tablet 500 MCG PO (08:52)
[2020-10-16] MEDS: ferrous sulfate EC 325 mg Tablet PO (08:53)
[2020-10-16] MEDS: aspirin 81 mg Chew Tablet PO (08:53)
[2020-10-16] MEDS: topiramate 25 mg Tablet PO (08:53)
[2020-10-16] MEDS: ticagrelor 90 mg Tablet PO (08:53)
[2020-10-16] MEDS: levETIRAcetam 500 mg Tablet 750 MG PO (08:53)
[2020-10-16] MEDS: folic acid 1 mg Tablet PO (08:53)
[2020-10-16] MEDS: pantoprazole DR 40 mg Tablet PO (08:53)
[2020-10-16] MEDS: vancomycin 1,500 MG/300 ML PIGGYBACK 200 MG IV (08:59)
--- NOTE | 2020-10-16 09:30 | PC.SOCIAL ---
IMM Updated Page 2 of IMM updated with patient. Initialed, dated, and timed and placed back in chart.
--- NOTE | 2020-10-16 10:52 | PM.DCS ---
Discharge Providers Date of Admission: 09/29/20 17:03 Date of Discharge: October 16, 2020 Attending Provider at Admission: Avila Marie Attending Provider at Discharge: Salvador Sterling MD Primary Care Provider: CHARLOTTE Pugh Diagnoses at Discharge Discharge Diagnosis (1) Hypotension: Status: Acute (2) Septic arthritis of knee, left: Status: Acute Qualifiers: Septic arthritis organism: due to unspecified organism Qualified Code(s): M00.9 - Pyogenic arthritis, unspecified (3) Status post left knee replacement: Status: Acute (4) QIANA (acute kidney injury): Status: Acute (5) Current every day smoker: Status: Chronic (6) Coronary artery disease due to type 2 diabetes mellitus: Status: Acute (7) Chronic obstructive pulmonary disease, unspecified: Status: Acute Qualifiers: COPD type: unspecified COPD Qualified Code(s): J44.9 - Chronic obstructive pulmonary disease, unspecified (8) Essential hypertension: Status: Chronic (9) Anemia: Status: Acute (10) Diabetes type 2, uncontrolled: Status: Acute Qualifiers: Glycemic state: with hyperglycemia Qualified Code(s): E11.65 - Type 2 diabetes mellitus with hyperglycemia Reason for Visit Reason for Visit: POSS BLOOD CLOT Hospital Course Hospital Course Mayra is a 55-year-old white female who presented to the hospital on September 29. Initial complaint was swollen leg. She was ultimately diagnosed with septic arthritis, placed on broad-spectrum antibiotics, and orthopedic consultation occurred. On September 30 she underwent surgery secondary to infection of her left total knee arthroplasty. Revision occurred, and placement of articulating antibiotic spacer. Following surgery she had some hypotension, encephalopathy. She required a transfusion of blood at that time. She required pressors. Broad-spectrum antibiotics were continued. Some acute kidney injury occurred, which resolved. On October 06, antibiotic spacer exchange and irrigation occurred as well as debridement. From this point on she had some persistent hypotension. Eventually she improved to a point she was able to get off norepinephrine and transition to midodrine. She continued to improve and was ready for transfer on October 16 for continued rehabilitation and further antibiotic treatment. At this point, plan on at least 4 more weeks of IV antibiotics. This would give her 6 weeks total from initiation although this may need to be amended depending upon clinical course. Discharge hemoglobin is 8.1. Body fluid culture done from admission demonstrated MRSA, group B strep both sensitive to vancomycin. Broad-spectrum antibiotics were also given at least 7 days for a possible concern of pneumonia, although no radiographic evidence of this was noted. Physical Exam Narrative: EXAM NARRATIVE: General exam no apparent distress Cardiovascular regular rate and rhythm without murmur Lungs clear Abdomen is soft, obese Extremities, left lower extremity with wound vacuum on. No visible erythema or significant edema. Urinary Catheter Management^: [place]: Cath Placed During This Visit: yes, but has since been removed by the nurse Reason for Continuing Indwelling Catheter: Other Urinary Catheter Date of Insertion: 09/30/20 Urinary Catheter Time of Insertion: 00:30 Date Urinary Catheter Removed: 10/01/20 Time Urinary Catheter Discontinued: 06:34 Discharge Data Data Completed and Pending: Completed Studies During Hospitalization Category Date Time Status CT head wo con* 7 0450 Urgent Cat Scan 09/29/20 15:27 Completed XR chest 1V calin ble [id number] Routine Exams 10/02/20 08:25 Completed XR chest 1V calin ble [id number] Routine Exams 10/03/20 06:00 Completed XR chest 1V calin ble [id number] Stat Exams 09/29/20 13:41 Completed XR chest 1V calin ble 88055 Stat Exams 10/06/20 11:27 Completed XR knee LT 3V* 73 562 Stat Exams 09/29/20 14:51 Completed CV echo limited 9 3308 Routine Ultrasound 10/02/20 08:24 [place] [address] Urgent Ultrasound 09/29/20 13:41 Completed Pending at discharge Category Date Time Status CBC Auto Diff [Co mplete Blood Count w/Auto] AM LABS Lab 10/17/20 04:00 Ordered CMP [Comprehensiv e Metabolic Panel] AM LABS Lab 10/17/20 04:00 Ordered Immunochemical Fe joana OCB Routine Lab 09/30/20 11:30 Uncollected Sputum Culture an d Gram Stain Magalyi ne Lab 10/02/20 11:10 Uncollected Labs from last 24 hours 10/16/20 10/16/20 10/16/20 06:56 05:08 05:08 WBC 8.9 RBC 3.14 L Hgb 8.1 L Hct 27.9 L MCV 88.9 MCH 25.8 L MCHC 29.0 L RDW 18.5 H Plt Count 906 H MPV 8.6 Neut % (Auto) 44.3 Lymph % (Auto) 32.7 Gaines % (Auto) 9.9 Eos % (Auto) 9.6 Baso % (Auto) 2.0 Neut # (Auto) 3.95 Lymph # (Auto) 2.9 Gaines # (Auto) 0.9 Eos # (Auto) 0.9 H Baso # (Auto) 0.2 H Nucleated RBC % (a uto) 0 Nucleated RBCs # 0.0 Sodium 140 Potassium 3.6 Chloride 108 H Carbon Dioxide 22 Anion Gap 13.6 BUN 6 Creatinine 0.5 GFR Calculation 129.1 Glucose 125 H POC Glucose 133 H Calculated Osmolal ity 289 Calcium 8.9 Total Bilirubin 0.2 AST 14 ALT 12 Alkaline Phosphata se 94 Total Protein 6.5 L Albumin 2.9 L Globulin 3.6 Vancomycin Trough 10/15/20 10/15/20 10/15/20 21:38 19:30 16:41 WBC RBC Hgb Hct MCV MCH MCHC RDW Plt Count MPV Neut % (Auto) Lymph % (Auto) Gaines % (Auto) Eos % (Auto) Baso % (Auto) Neut # (Auto) Lymph # (Auto) Gaines # (Auto) Eos # (Auto) Baso # (Auto) Nucleated RBC % (a uto) Nucleated RBCs # Sodium Potassium Chloride Carbon Dioxide Anion Gap BUN Creatinine GFR Calculation Glucose POC Glucose 131 H 124 H Calculated Osmolal ity Calcium Total Bilirubin AST ALT Alkaline Phosphata se Total Protein Albumin Globulin Vancomycin Trough 15.6 H 10/15/20 12:18 WBC RBC Hgb Hct MCV MCH MCHC RDW Plt Count MPV Neut % (Auto) Lymph % (Auto) Gaines % (Auto) Eos % (Auto) Baso % (Auto) Neut # (Auto) Lymph # (Auto) Gaines # (Auto) Eos # (Auto) Baso # (Auto) Nucleated RBC % (a uto) Nucleated RBCs # Sodium Potassium Chloride Carbon Dioxide Anion Gap BUN Creatinine GFR Calculation Glucose POC Glucose 182 H Calculated Osmolal ity Calcium Total Bilirubin AST ALT Alkaline Phosphata se Total Protein Albumin Globulin Vancomycin Trough Vitals: Last Vital Signs Temp 97.9 F 10/16/20 08:00 Pulse 90 10/16/20 08:05 Resp 18 10/16/20 08:05 BP 152/83 10/16/20 08:00 Pulse Ox 94 10/16/20 08:05 Discharge Plan Discharge Patient Disposition: Xfer Inpatient Rehab Fac Condition: Stable Prescriptions: New hydromorphone 4 mg Tablet 4 mg PO Q6H PRN (Reason: Moderate Pain) Qty: 1 RF: 0 folic acid 1 mg Tablet 1 mg PO DAILY Qty: 30 RF: 0 levetiracetam 500 mg Tablet 750 mg PO BID@ Qty: 60 RF: 0 ferrous sulfate 325 mg (65 mg iron) Tablet,Delayed Release (Dr/Ec) 325 mg PO BIDWM Qty: 60 RF: 0 vancomycin-water inject (PEG) 1.5 gram/300 mL Piggyback 1,500 mg continuous IV infusion Q12H 28 Days Qty: 97227 RF: 0 midodrine 5 mg Tablet 5 mg PO BID Qty: 60 RF: 0 acetaminophen 325 mg Tablet 650 mg PO Q6H PRN (Reason: Mild/Mod Pain Or Temp >/= 101) Qty: 30 RF: 0 cyanocobalamin (vitamin B-12) [Vitamin B-12] 1,000 mcg Tablet 500 mcg PO DAILY Qty: 30 RF: 0 Continued nitroglycerin 0.4 mg tablet, sublingual 0.4 mg SUBLINGUAL Q5M PRN (Reason: chest pains) Qty: 25 RF: 3 budesonide-formoterol [Symbicort] 160-4.5 mcg/actuation HFA aerosol inhaler 2 puff INHALATION Q12H Qty: 10.2 RF: 2 albuterol sulfate [Ventolin HFA] 90 mcg/actuation HFA aerosol inhaler 2 puff INHALATION QID PRN (Reason: shortness of breath or wheezing) 30 Days Qty: 6.7 RF: 2 topiramate 50 mg tablet 50 mg PO BID@ RF: 0 pantoprazole [Protonix] 40 mg tablet,delayed release (DR/EC) 40 mg PO DAILY@08 RF: 0 atorvastatin 40 mg tablet 40 mg PO DAILY@ RF: 0 Keppra 500 mg Tablet 1,500 mg PO BID@ RF: 0 Ultram 50 mg tablet See Rx Instructions .ROUTE .COMPLEX PRN (Reason: pain) RF: 0 Seroquel 50 mg tablet 50 mg PO BEDTIME@ RF: 0 ranolazine 500 mg tablet extended release 12 hr 1,000 mg PO BID@ RF: 0 Levemir FlexTouch U-100 Insuln 100 unit/mL (3 mL) insulin pen 10 unit SUBCUT DAILY@08 RF: 0 Brilinta 90 mg tablet 90 mg PO BID@, RF: 0 duloxetine 60 mg capsule, delayed rel sprinkle 60 mg PO DAILY@08 RF: 0 aspirin 81 mg Tablet,Chewable 81 mg PO DAILY@08 RF: 0 Discontinued cyclobenzaprine 10 mg tablet 10 mg PO TID PRN (Reason: muscle spasm) 30 Days Qty: 90 RF: 2 hydromorphone 4 mg tablet 4 mg PO QID 15 Days Qty: 60 RF: 0 Ozempic 1 mg/dose (2 mg/1.5 mL) pen injector 1 mg SUBCUT Q7D RF: 0 losartan 50 mg tablet 50 mg PO DAILY@08 RF: 0 furosemide 40 mg tablet 40 mg PO DAILY@08 RF: 0 Coreg 6.25 mg tablet 6.25 mg PO BID@, RF: 0 isosorbide mononitrate 60 mg tablet extended release 24 hr 60 mg PO DAILY@08 RF: 0 potassium chloride 20 mEq tablet,ER particles/crystals 20 meq PO DAILY@08 RF: 0 metformin 500 mg tablet extended release 24 hr 1,000 mg PO BID@, RF: 0 Lyrica 150 mg capsule 150 mg PO TID@,, RF: 0 Discharge Orders: Discharge Order (Routine); Ordered 10/16/20 Ordered By: Salvador Sterling Referrals: Genevieve Crespo FNP-Christy [Primary Care Provider] - Vj Verma MD [Physician] - 10/28/20 1:30 pm Discharge Diet: Diabetic Discharge Activity: Limit activity as instructed Activity Restrictions/Additional Instructions: Weight-bear as tolerated left lower extremity Range of motion as tolerated left lower extremity Transferring to [facility] rehab Discharge Attestations Time Spent in Discharge Care*: greater than 30 min Quality Metrics Clinical Quality Measures During this hospital stay, did patient experience: None Coding Level of Care Code Acute Breakdown Man for Subhashg Fwd Diagnoses Hypotension I95.9 Septic arthritis of knee, left M00.9 Septic arthritis organism: due to unspecified organism Status post left knee replacement Z96.652 QIANA (acute kidney injury) N17.9 Current every day smoker F17.200 Coronary artery disease due to type 2 diabetes mellitus E11.59; I25.10 Chronic obstructive pulmonary disease, unspecified J44.9 COPD type: unspecified COPD Essential hypertension I10 Anemia D64.9 Diabetes type 2, uncontrolled E11.65 Glycemic state: with hyperglycemia
[2020-10-16 10:57] LABS: Glucose Point of Care 232 mg/dL (70-110)
--- NOTE | 2020-10-16 14:20 | PC.NURSE ---
Patient report called to Laura Davies RN at [facility].
--- NOTE | 2020-10-16 16:38 | PC.NURSE ---
Patient report given to [facility] ambulance, personal belongings also given to ambulance crew.
== END 2020-10-16 16:38 | disposition skilled nursing facility (03) | DRG 466 ==
LOC: ER 17:55 → MEDSURG 18:13 → ICU 10-01 09:16 → MEDSURG 10-08 20:35
PROVIDERS: Internal Medicine; Orthopaedic Surgery; Admitting Provider Internal Medicine; Emergency Provider Emergency Medicine; PCP Nurse Practitioner Family; Visit Provider Internal Medicine
PROC: 0SPD0JZ Removal of Synthetic Substitute from Left Knee Joint, Open Approach (ICD-10-PCS; principal; 2020-09-30 15:10)
PROC: 0SRD0EZ Replacement of Left Knee Joint with Articulating Spacer, Open Approach (ICD-10-PCS; principal; 2020-10-06 12:10)
DX: T84.54XA Infection and inflammatory reaction due to internal left knee prosthesis, initial encounter (principal); J18.9 Pneumonia, unspecified organism; M00.9 Pyogenic arthritis, unspecified; J44.1 Chronic obstructive pulmonary disease with (acute) exacerbation; E27.40 Unspecified adrenocortical insufficiency; G93.40 Encephalopathy, unspecified; E87.1 Hypo-osmolality and hyponatremia; N17.9 Acute kidney failure, unspecified; M00.262 Other streptococcal arthritis, left knee; B95.5 Unspecified streptococcus as the cause of diseases classified elsewhere; I25.10 Atherosclerotic heart disease of native coronary artery without angina pectoris; Z95.5 Presence of coronary angioplasty implant and graft; I50.9 Heart failure, unspecified; I11.0 Hypertensive heart disease with heart failure; G89.29 Other chronic pain; M54.5 Low back pain; F17.210 Nicotine dependence, cigarettes, uncomplicated; Z86.73 Personal history of transient ischemic attack (TIA), and cerebral infarction without residual deficits; E78.2 Mixed hyperlipidemia; Z79.891 Long term (current) use of opiate analgesic; M79.7 Fibromyalgia; G47.00 Insomnia, unspecified; I25.2 Old myocardial infarction; E11.65 Type 2 diabetes mellitus with hyperglycemia; E11.42 Type 2 diabetes mellitus with diabetic polyneuropathy; Z98.1 Arthrodesis status; Z99.81 Dependence on supplemental oxygen; Z79.02 Long term (current) use of antithrombotics/antiplatelets; Z79.82 Long term (current) use of aspirin; Z79.51 Long term (current) use of inhaled steroids; E87.6 Hypokalemia; E83.42 Hypomagnesemia; B95.62 Methicillin resistant Staphylococcus aureus infection as the cause of diseases classified elsewhere; R09.02 Hypoxemia; E86.1 Hypovolemia; I95.9 Hypotension, unspecified; E66.9 Obesity, unspecified; Z68.38 Body mass index [BMI] 38.0-38.9, adult; D47.3 Essential (hemorrhagic) thrombocythemia; D64.9 Anemia, unspecified; Y79.2 Prosthetic and other implants, materials and accessory orthopedic devices associated with adverse incidents
CPT/HCPCS: 12345; 20610; 36415; 36416; 36430; 36569; 36592; 51702; 70450; 71045; 73562; 80048; 80053; 80069; 80202; 80500; 81001; 82274; 82533; 82607; 82728; 82746; 82962; 82977; 83540; 83550; 83605; 83735; 83880; 84466; 84484; 85007; 85018; 85025; 85651; 86140; 86403; 86850; 86900; 86920; 87040; 87070; 87075; 87077; 87186; 87205; 87426; 87449; 87804; 89050; 93005; 93308; 93971; 94640; 94664; 96372; 96375; 97110; 97161; 97167; 97530; 97535; 99214; 99283; C1776; J0131; J0330; J0743; J1100; J1170; J1642; J1650; J1720; J1756; J1815; J1956; J2060; J2250; J2405; J2704; J2710; J2765; J3010; J3260; J3370; J3420; J3475; J3480; J3490; J3535; J7030; J7040; J7050; P9016

== ENCOUNTER → 2020-11-05 08:51 | Day surgery (SDC) | payer MEDICARE, MEDICAID, SELFPAY ==
--- NOTE | 2020-11-05 09:23 | XR_ITS ---
WS: [id number] Portable AP upright chest, 11/05/2020 Clinical Data: picc placement Comparison: Portable chest, 10/06/2020. Findings: A right PICC line has been inserted and ends in the superior vena cava. No pneumothorax is seen. XR/XR chest 1V portable [id number] Impression: Satisfactory insertion of right PICC line.
[2020-11-05 10:15] VITALS: PULSE 93; RESP 18; TEMP 36.7; O2SAT 97
== END ==
PROVIDERS: PCP Nurse Practitioner Family; Visit Provider Student in an Organized Health Care Education/Training Program
DX: Z45.2 Encounter for adjustment and management of vascular access device (principal)
CPT/HCPCS: 36569; 71045

== ENCOUNTER 2020-11-24 12:58 | Outpatient (CLI) | payer MEDICARE, MEDICAID, SELFPAY | END 2020-11-24 12:59 | disposition home or self-care (01) | LOC: WOUND 12:59 | PROVIDERS: PCP Nurse Practitioner Family; Visit Provider Nurse Practitioner Family | DX: E11.621 Type 2 diabetes mellitus with foot ulcer (principal); L97.421 Non-pressure chronic ulcer of left heel and midfoot limited to breakdown of skin; L89.323 Pressure ulcer of left buttock, stage 3 | CPT/HCPCS: 11042; 87070; 87077; 87176; 87186; 87205; G0463; L3260; L4397 ==

== ENCOUNTER 2020-12-15 11:02 | Outpatient (CLI) | payer MEDICARE, MEDICAID, SELFPAY | END 2020-12-15 11:03 | disposition home or self-care (01) | LOC: WOUND 11:03 | PROVIDERS: PCP Nurse Practitioner Family; Visit Provider Nurse Practitioner Family | DX: E11.621 Type 2 diabetes mellitus with foot ulcer (principal); L97.411 Non-pressure chronic ulcer of right heel and midfoot limited to breakdown of skin; L89.323 Pressure ulcer of left buttock, stage 3 | CPT/HCPCS: 11042 ==

== ENCOUNTER → 2020-12-16 11:00 | Outpatient (BNVA) | payer MEDICARE, MEDICAID, SELFPAY | PROVIDERS: PCP Nurse Practitioner Family; Visit Provider Student in an Organized Health Care Education/Training Program | DX: L89.159 Pressure ulcer of sacral region, unspecified stage (principal); T84.50XA Infection and inflammatory reaction due to unspecified internal joint prosthesis, initial encounter; M00.9 Pyogenic arthritis, unspecified; E11.42 Type 2 diabetes mellitus with diabetic polyneuropathy; E11.59 Type 2 diabetes mellitus with other circulatory complications; I25.10 Atherosclerotic heart disease of native coronary artery without angina pectoris; E11.65 Type 2 diabetes mellitus with hyperglycemia; I50.9 Heart failure, unspecified; Z79.899 Other long term (current) drug therapy | CPT/HCPCS: 80053; 85025; 85651; 86140 ==

== ENCOUNTER → 2020-12-25 09:23 | Outpatient (BNVA) | payer MEDICARE, MEDICAID, SELFPAY | PROVIDERS: PCP Nurse Practitioner Family; Visit Provider Anesthesiology | DX: G89.29 Other chronic pain (principal); M51.06 Intervertebral disc disorders with myelopathy, lumbar region; M47.817 Spondylosis without myelopathy or radiculopathy, lumbosacral region; M47.819 Spondylosis without myelopathy or radiculopathy, site unspecified; M17.12 Unilateral primary osteoarthritis, left knee; F17.210 Nicotine dependence, cigarettes, uncomplicated; Z96.652 Presence of left artificial knee joint; Z79.891 Long term (current) use of opiate analgesic | CPT/HCPCS: 99214 ==

== ENCOUNTER 2020-12-28 18:07 | Inpatient (IN) | payer MEDICARE, MEDICAID, SELFPAY ==
[2020-12-28] VITALS (7 sets, daily range): BP systolic 89–116; BP diastolic 54–75; PULSE 99–106; RESP 20–24; TEMP 37.3; O2SAT 90–96; BMI 35.7
--- NOTE | 2020-12-28 18:30 | ECG_ITS ---
[facility] Test Date: 2020-12-28 Pat Name: Mayra Ascencio Department: Room: Gender: Female Utility Porter: : 1965 Requested By: Sourav Muller Order Number: [id number] Ashlee MD: Troy Joyce M.D. Measurements Intervals [place] Rate: P: NM: QRS: 0 QRSD: T: 0 QT: QTc: Interpretive Statements NO FURTHER INTERPRETATION POSSIBLE ATYPICAL ECG WARNING: DATA QUALITY MAY AFFECT INTERPRETATION Compared to ECG 10/02/2020 10:07:49 Sinus rhythm no longer present Electronically Signed On 12-28-2020 22:44:09 CDT by Troy Joyce M.D. [email or web address] health centeriYogicincinnati children's hospital medical [email or web address]/[id number]
--- NOTE | 2020-12-28 18:30 | XR_ITS ---
WS: [id number] XR chest 1V portable [id number] REASON FOR EXAM: cp FINDINGS: Compared to previous examination of 12/28/2020 central venous line has been placed through right inter nal jugular vein. Tip at the right atrial level. No pneumothorax. Cardiomegaly and interstitial changes remain stable compared to the previous examination. No new find ings are identified. XR/XR chest 1V portable [id number] IMPRESSION: Central venous line placement as above.
--- NOTE | 2020-12-28 18:30 | XR_ITS ---
WS: [id number] XR chest 1V portable [id number] REASON FOR EXAM: cp FINDINGS: There are central interstitial infiltrative changes which appear more prominent than on the previous examination of 11/05/2020. There is peribronchial cuffing. There is mild enlargement of the cardiac silhouette. The chest is otherwise unchanged compared to 11/05/2020. XR/XR chest 1V portable [id number] IMPRESSION: Interstitial infiltrative changes in the central lungs appear more prominent th an on the previous examination. Possibly there has been interval development of early congestive failure or pneumonitis.
--- NOTE | 2020-12-28 18:36 | ED_ITS ---
HPI - Chest Pain General: Chief Complaint: Chest Pain Stated Complaint: chest pain Time Seen by Provider: 12/28/20 18:30 History of Present Illness: HPI narrative: The patient is a 55-year-old female with past medical history of coronary artery disease with non-STEMI April 17, 2020 and 5 stents total she says. She also has COPD and CHF per her notes. She comes to the ER complaining that she woke up this morning at 5 AM with chest pain. She took 3 nitroglycerin with no relief. She took 2 more around 3 PM. The pain radiates to the left shoulder. MD complaint: chest pain Pertinent past history: coronary artery disease, prior [place] and [employer] Onset (ago): day(s) (2) Timing of current episode: episodic Prior episodes: Yes Onset: during rest and during exertion Pain location: left chest Pain radiation: left arm Severity: moderate Quality: tightness and heaviness Relieving factors: nitroglycerin Exacerbating factors: nothing Associated symptoms: Reports no associated symptoms; Deny abdominal pain, dyspnea or palpitations Review of Systems General: Reports: 10 or more systems reviewed and unremarkable except in HPI and below Const: Denies: fatigue Eyes: Denies: change in vision, blurry vision or eye redness ENMT: Denies: throat pain, swelling of lips/tongue, ear or mastoid pain or nasal congestion Card: Reports: chest pain; Denies: palpitations, irregular heart rhythm, edema, dyspnea on exertion or orthopnea Resp: Denies: dyspnea, productive cough or non-productive cough GI: Denies: abdominal pain, diarrhea or GI cramping : Denies: flank pain, difficulty voiding, urinary frequency or urinary urgency Musc: Denies: neck pain, back pain, extremity pain, joint pain, joint redness, limited range of motion or muscle weakness Skin/Breast: Denies: rash, pruritus, erythema, skin pain or skin tenderness Neuro: Denies: headache(s), numbness in extremities, weakness in extremities, sensory changes, difficulty walking, dizziness, confusion or Slurred speech present Psych: Denies: anxiety or depression Endo: Denies: polyuria All/Imm: Denies: urticaria, throat swelling or tongue swelling PFSH ED PFSH: Medical History (Updated 12/30/20 @ 11:22 by Sourav Muller MD) Atherosclerotic heart disease of [place] coronary artery with unspecified angina pectoris Chest pain, midsternal Chronic congestive heart failure Chronic left-sided low back pain Chronic obstructive pulmonary disease, unspecified Chronic pain of left knee Congestive heart failure Current every day smoker CVA (cerebral vascular accident) Dyslipidemia Encounter for long-term opiate analgesic use Essential hypertension Fibromyalgia Fibromyalgia, primary Hyperlipidemia, mixed Insomnia Intervertebral disc disorder of lumbar region with myelopathy Low back pain radiating to both legs Lumbosacral spondylosis without myelopathy NSTEMI (non-ST elevated myocardial infarction) Thought to be secondary to plaque rupture. Angiogram July 04 no flow- limiting lesions, or restenosis of previous stent from April 2020 Opioid contract exists Osteoarthritis of spine at multiple levels Type 2 diabetes mellitus with diabetic autonomic (poly)neuropathy Vitamin D deficiency Surgical History History of arthroscopic surgery of elbow BILATERAL History of coronary angiogram Angiogram April 2020 with 90% circumflex lesion, drug-eluting stent placed by Dr. Jerome S/alis bilateral carpal tunnel release S/P hysterectomy S/P knee surgery RIGHT S/P lumbar fusion DR. Shreya ZAYAS IN [place], [place] L4-L5, L5-S1 Status post lumbar laminectomy Family History Other CAD (coronary artery disease) Cancer Diabetes Social History Smoking and tobacco status: current every day smoker cigarettes [ Other cigarette details: PER PATIENT REPORT ] Second hand smoke exposure: Yes Smoking risk assessment/counseling performed?: Yes Alcohol intake: former Desire information about alcohol rehabilitation?: No Counseling given: No Desire information about substance/drug rehabilitation?: No Counseling given: No Caregiver/support person: No Lives independently: Yes Household members: family and other Details: son Housing: Manufactured/Mobile home Marital status: Unknown Marital status details: She and son state she is not service: No Current occupational status: unemployed Pets and animals: Yes History of recent travel: No Current gender identity: Female Physical Exam Const: COMMON NORMALS: no acute distress, average body habitus, patient oriented x3, no limitations, healthy appearing, alert and well nourished GENERAL APPEARANCE: cooperative, comfortable, well kempt and well developed ORIENTATION/CONSCIOUSNESS: Yes awake, Yes oriented to person, Yes oriented to place and Yes oriented to time HENMT: COMMON NORMALS: normocephalic, external ears normal and Normal external nose present HEAD & SCALP: normal to inspection and normocephalic NOSE: Normal external nose present EXTERNAL EAR: Yes external ears normal MOUTH: Normal oral and palatal mucosa present THROAT: posterior oropharynx normal Eye: COMMON NORMALS: Equal, round and reactive pupils present and EOMs intact bilaterally GENERAL EYE: appearance normal, both eyes and all related structures PUPIL: Yes Equal, round and reactive pupils present Neck/C-Spine: COMMON NORMALS: full ROM, no lymphadenopathy, no meningeal signs and no JVD GENERAL: Yes normal visual inspection Lymph: LYMPHATIC: no lymphadenopathy noted Chest: COMMONS NORMALS: normal inspection of the chest and normal palpation of entire chest wall Resp: COMMON NORMALS: normal respiratory effort, No retractions, No use of accessory muscles, clear to auscultation bilaterally and percussion normal EFFORT & INSPECTION: Yes able to speak in complete sentences AUSCULTATION: clear to auscultation bilaterally PERCUSSION: percussion normal Cardio: COMMON NORMALS: no JVD, regular rate, regular rhythm, S1 normal heart sound present, S2 normal heart sound present and Peripheral pulses 2+ throughout RATE: regular rate RHYTHM: regular rhythm HEART SOUNDS: S1 normal heart sound present and S2 normal heart sound present PERIPHERAL PULSES: Peripheral pulses 2+ throughout GI: COMMON NORMALS: Normal to inspection, nondistended, normoactive bowel sounds present, Soft to palpation, non-tender and no masses INSPECTION: Yes normal to inspection PALPATION: Yes Soft to palpation : COMMON NORMALS: Yes no CVA tenderness BLADDER/KIDNEY EXAM: Yes no CVA tenderness Back/Pelvis: COMMON NORMALS: no CVA tenderness, thoracic and lumbar spine normal to inspection, no thoracic nor lumbar tenderness and thoraco-lumbar ROM normal Extremity: COMMON NORMALS: normal to inspection, full ROM, capillary refill normal, no joint enlargement and no pedal edema GENERAL: Yes normal exam except as noted Neuro: COMMON NORMALS: patient oriented x3, CN's II-XII intact bilaterally, moves all extremities, no focal motor deficits, no sensory deficits noted and gait normal SENSORIUM/ORIENTATION: Yes alert, Yes oriented to person, Yes oriented to place and Yes oriented to time MENINGEAL SIGNS: Yes no meningeal signs Psych: COMMON NORMALS: mental status grossly normal, Normal thought process present, cooperative, normal affect and speech normal APPEARANCE: Yes well kempt ATTITUDE: Yes calm SPEECH: Yes normal speech THOUGHT PROCESS: Normal thought process present Skin: COMMON NORMALS: no rashes or lesions noted GENERAL SKIN EXAM: no rashes or lesions noted Course Vital Signs: Vital signs: Vital Signs Temperature 98.0 F 12/30/20 08:00 Pulse Rate 103 H 12/30/20 08:00 Respiratory Rate 25 H 12/30/20 08:00 Blood Pressure 126/65 12/30/20 08:00 Pulse Oximetry 92 12/30/20 08:00 MDM - Chest Pain MDM Narrative: Medical decision making narrative: the patient is a 55 year old female with CAD and stents x 5 comes to the ED with hypotension, elevated troponins and pericardial effusion. She was given IV fluids and pressure improved some. Discussed with Dr. Joyce who recommended inpatient stay and echo on the floor. Lab Data: Labs: Lab Results 12/28/20 12/28/20 12/28/20 Range/Units 19:07 19:07 19:07 WBC 15.6 H (4.0-10.0) 10^3/ uL RBC 4.57 (4.1-5.3) 10^6/u L Hgb 12.4 (11.5-15.3) g/dL Hct 38.3 (37.0-47.0) % MCV 83.8 (81-99) fL MCH 27.1 L (28.0-34.0) pg MCHC 32.4 (30.0-36.0) g/dL RDW 14.8 (12.1-15.1) % Plt Count 463 H (130-400) 10^3/c mm MPV 9.7 (7.4-10.4) fL Neut % (Auto) 74.1 % Lymph % (Auto) 14.7 % Tucker % (Auto) 8.4 % Eos % (Auto) 1.2 % Baso % (Auto) 0.3 % Neut # (Auto) 11.57 H (1.8-7.7) 10^3/u L Lymph # (Auto) 2.3 (0.8-4.8) 10^3/u L Tucker # (Auto) 1.3 H (0.2-0.9) 10^3/u L Eos # (Auto) 0.2 (0.0-0.8) 10^3/u L Baso # (Auto) 0.1 (0.0-0.1) 10^3/u L Nucleated RBC % (a uto) 0 % Nucleated RBCs # 0.0 /100WBC ESR (0-15) mm/hr D-Dimer 2.68 H (0-0.59) ug/mIFE U Specimen Type Sample Site ABG pH (7.35-7.45) ABG pCO2 (35-45) mmHg ABG pO2 (80.0-100.0) mmH g ABG HCO3 (22-26) mmol/L ABG Base Excess (-2.0-2.0) mmol/ L Freddy Test Hematocrit (37-47) % O2 Delivery Device O2 Liters/Min % FiO2 % R D Intern ID Sodium 128 L (136-145) mmol/L Potassium 5.2 H (3.5-5.1) mmol/L Chloride 90 L (98-107) mmol/L Carbon Dioxide 25 (22-29) mmol/L Anion Gap 18.2 (5-19) BUN 15 (6-20) mg/dL Creatinine 0.9 (0.5-0.9) mg/dL GFR Calculation 65.5 L (90-130) mL/min Glucose 216 H (65-115) mg/dL POC Glucose (70-110) mg/dL Calculated Osmolal ity 273 L (285-295) mOsm/k g Lactate (0.5-2.2) mmol/L Calcium 9.3 (8.5-10.5) mg/dL Phosphorus (2.5-4.5) mg/dL Magnesium (1.7-2.3) mg/dL Total Bilirubin 0.2 (0.15-1.2) mg/dL AST 18 (0-32) U/L ALT 13 (0-33) U/L Alkaline Phosphata se 99 (35-105) IU/L Troponin T Baselin e (0-10) ng/L Troponin T 120 Min little traverse (0-10) ng/L Delta Troponin T (0-10) ABS# Troponin T Hi Sens 6Hr (0-10) ng/L Troponin T Hi Sens 6Hr Delta (0-12) ng/L C-Reactive Protein (0.0-4.9) mg/L NT-Pro-B Natriuret Pep 228 H (0-125) pg/mL Total Protein 6.3 L (6.6-8.7) g/dL Albumin 3.7 (3.5-5.2) g/dL Globulin 2.6 (1.3-4.6) g/dL Triglycerides (0-150) mg/dL Cholesterol (0-200) mg/dL LDL Cholesterol, C alc (50-129) mg/dL HDL Cholesterol (60-100) mg/dL LDL/HDL Ratio (0.00-3.22) RATI O Cholesterol/HDL Ra grace (0.0-4.40) mg/dL Procalcitonin (0-0.5) ng/mL TSH (0.27-4.20) uIU/ mL Urine Color (Yellow) Urine Appearance (CLEAR) Urine pH (5-7) Ur Specific Gravit y (1.005-1.030) Urine Protein (Negative) Urine Glucose (UA) (Normal) Urine Ketones (Negative) Urine Blood (Negative) Urine Nitrate (Negative) Urine Bilirubin (Negative) Urine Urobilinogen (Negative) mg/dL Ur Leukocyte Maria Elena ase (Negative) SARS-CoV-2 Ag (Rap id) (Negative) 12/28/20 12/28/20 12/28/20 Range/Units 19:07 19:12 19:30 WBC (4.0-10.0) 10^3/ uL RBC (4.1-5.3) 10^6/u L Hgb (11.5-15.3) g/dL Hct (37.0-47.0) % MCV (81-99) fL MCH (28.0-34.0) pg MCHC (30.0-36.0) g/dL RDW (12.1-15.1) % Plt Count (130-400) 10^3/c mm MPV (7.4-10.4) fL Neut % (Auto) % Lymph % (Auto) % Tucker % (Auto) % Eos % (Auto) % Baso % (Auto) % Neut # (Auto) (1.8-7.7) 10^3/u L Lymph # (Auto) (0.8-4.8) 10^3/u L Tucker # (Auto) (0.2-0.9) 10^3/u L Eos # (Auto) (0.0-0.8) 10^3/u L Baso # (Auto) (0.0-0.1) 10^3/u L Nucleated RBC % (a uto) % Nucleated RBCs # /100WBC ESR (0-15) mm/hr D-Dimer (0-0.59) ug/mIFE U Specimen Type Sample Site ABG pH (7.35-7.45) ABG pCO2 (35-45) mmHg ABG pO2 (80.0-100.0) mmH g ABG HCO3 (22-26) mmol/L ABG Base Excess (-2.0-2.0) mmol/ L Freddy Test Hematocrit (37-47) % O2 Delivery Device O2 Liters/Min % FiO2 % R D Intern ID Sodium (136-145) mmol/L Potassium (3.5-5.1) mmol/L Chloride (98-107) mmol/L Carbon Dioxide (22-29) mmol/L Anion Gap (5-19) BUN (6-20) mg/dL Creatinine (0.5-0.9) mg/dL GFR Calculation (90-130) mL/min Glucose (65-115) mg/dL POC Glucose (70-110) mg/dL Calculated Osmolal ity (285-295) mOsm/k g Lactate (0.5-2.2) mmol/L Calcium (8.5-10.5) mg/dL Phosphorus (2.5-4.5) mg/dL Magnesium (1.7-2.3) mg/dL Total Bilirubin (0.15-1.2) mg/dL AST (0-32) U/L ALT (0-33) U/L Alkaline Phosphata se (35-105) IU/L Troponin T Baselin e 32 H (0-10) ng/L Troponin T 120 Min little traverse (0-10) ng/L Delta Troponin T (0-10) ABS# Troponin T Hi Sens 6Hr (0-10) ng/L Troponin T Hi Sens 6Hr Delta (0-12) ng/L C-Reactive Protein (0.0-4.9) mg/L NT-Pro-B Natriuret Pep (0-125) pg/mL Total Protein (6.6-8.7) g/dL Albumin (3.5-5.2) g/dL Globulin (1.3-4.6) g/dL Triglycerides (0-150) mg/dL Cholesterol (0-200) mg/dL LDL Cholesterol, C alc (50-129) mg/dL HDL Cholesterol (60-100) mg/dL LDL/HDL Ratio (0.00-3.22) RATI O Cholesterol/HDL Ra grace (0.0-4.40) mg/dL Procalcitonin (0-0.5) ng/mL TSH (0.27-4.20) uIU/ mL Urine Color Yellow (Yellow) Urine Appearance Clear (CLEAR) Urine pH 5 (5-7) Ur Specific Gravit y 1.020 (1.005-1.030) Urine Protein Neg (Negative) Urine Glucose (UA) Trace H (Normal) Urine Ketones Negative (Negative) Urine Blood Neg (Negative) Urine Nitrate Negative (Negative) Urine Bilirubin Neg (Negative) Urine Urobilinogen Norm (Negative) mg/dL Ur Leukocyte Maria Elena ase Negative (Negative) SARS-CoV-2 Ag (Rap id) Negative (Negative) 12/28/20 12/29/20 12/29/20 Range/Units 20:45 01:04 01:04 WBC (4.0-10.0) 10^3/ uL RBC (4.1-5.3) 10^6/u L Hgb (11.5-15.3) g/dL Hct (37.0-47.0) % MCV (81-99) fL MCH (28.0-34.0) pg MCHC (30.0-36.0) g/dL RDW (12.1-15.1) % Plt Count (130-400) 10^3/c mm MPV (7.4-10.4) fL Neut % (Auto) % Lymph % (Auto) % Tucker % (Auto) % Eos % (Auto) % Baso % (Auto) % Neut # (Auto) (1.8-7.7) 10^3/u L Lymph # (Auto) (0.8-4.8) 10^3/u L Tucker # (Auto) (0.2-0.9) 10^3/u L Eos # (Auto) (0.0-0.8) 10^3/u L Baso # (Auto) (0.0-0.1) 10^3/u L Nucleated RBC % (a uto) % Nucleated RBCs # /100WBC ESR 52 H (0-15) mm/hr D-Dimer (0-0.59) ug/mIFE U Specimen Type Sample Site ABG pH (7.35-7.45) ABG pCO2 (35-45) mmHg ABG pO2 (80.0-100.0) mmH g ABG HCO3 (22-26) mmol/L ABG Base Excess (-2.0-2.0) mmol/ L Freddy Test Hematocrit (37-47) % O2 Delivery Device O2 Liters/Min % FiO2 % R D Intern ID Sodium (136-145) mmol/L Potassium (3.5-5.1) mmol/L Chloride (98-107) mmol/L Carbon Dioxide (22-29) mmol/L Anion Gap (5-19) BUN (6-20) mg/dL Creatinine (0.5-0.9) mg/dL GFR Calculation (90-130) mL/min Glucose (65-115) mg/dL POC Glucose (70-110) mg/dL Calculated Osmolal ity (285-295) mOsm/k g Lactate 2.1 (0.5-2.2) mmol/L Calcium (8.5-10.5) mg/dL Phosphorus (2.5-4.5) mg/dL Magnesium (1.7-2.3) mg/dL Total Bilirubin (0.15-1.2) mg/dL AST (0-32) U/L ALT (0-33) U/L Alkaline Phosphata se (35-105) IU/L Troponin T Baselin e (0-10) ng/L Troponin T 120 Min little traverse 30.75 H (0-10) ng/L Delta Troponin T -1.25 L (0-10) ABS# Troponin T Hi Sens 6Hr (0-10) ng/L Troponin T Hi Sens 6Hr Delta (0-12) ng/L C-Reactive Protein (0.0-4.9) mg/L NT-Pro-B Natriuret Pep (0-125) pg/mL Total Protein (6.6-8.7) g/dL Albumin (3.5-5.2) g/dL Globulin (1.3-4.6) g/dL Triglycerides (0-150) mg/dL Cholesterol (0-200) mg/dL LDL Cholesterol, C alc (50-129) mg/dL HDL Cholesterol (60-100) mg/dL LDL/HDL Ratio (0.00-3.22) RATI O Cholesterol/HDL Ra grace (0.0-4.40) mg/dL Procalcitonin (0-0.5) ng/mL TSH (0.27-4.20) uIU/ mL Urine Color (Yellow) Urine Appearance (CLEAR) Urine pH (5-7) Ur Specific Gravit y (1.005-1.030) Urine Protein (Negative) Urine Glucose (UA) (Normal) Urine Ketones (Negative) Urine Blood (Negative) Urine Nitrate (Negative) Urine Bilirubin (Negative) Urine Urobilinogen (Negative) mg/dL Ur Leukocyte Maria Elena ase (Negative) SARS-CoV-2 Ag (Rap id) (Negative) 12/29/20 12/29/20 12/29/20 Range/Units 01:04 02:18 02:18 WBC 20.9 H (4.0-10.0) 10^3/ uL RBC 4.60 (4.1-5.3) 10^6/u L Hgb 12.6 (11.5-15.3) g/dL Hct 38.7 (37.0-47.0) % MCV 84.1 (81-99) fL MCH 27.4 L (28.0-34.0) pg MCHC 32.6 (30.0-36.0) g/dL RDW 15.0 (12.1-15.1) % Plt Count 522 H (130-400) 10^3/c mm MPV 10.0 (7.4-10.4) fL Neut % (Auto) 78.7 % Lymph % (Auto) 10.5 % Tucker % (Auto) 8.1 % Eos % (Auto) 1.0 % Baso % (Auto) 0.3 % Neut # (Auto) 16.47 H (1.8-7.7) 10^3/u L Lymph # (Auto) 2.2 (0.8-4.8) 10^3/u L Tucker # (Auto) 1.7 H (0.2-0.9) 10^3/u L Eos # (Auto) 0.2 (0.0-0.8) 10^3/u L Baso # (Auto) 0.1 (0.0-0.1) 10^3/u L Nucleated RBC % (a uto) 0 % Nucleated RBCs # 0.0 /100WBC ESR (0-15) mm/hr D-Dimer (0-0.59) ug/mIFE U Specimen Type Sample Site ABG pH (7.35-7.45) ABG pCO2 (35-45) mmHg ABG pO2 (80.0-100.0) mmH g ABG HCO3 (22-26) mmol/L ABG Base Excess (-2.0-2.0) mmol/ L Freddy Test Hematocrit (37-47) % O2 Delivery Device O2 Liters/Min % FiO2 % R D Intern ID Sodium (136-145) mmol/L Potassium (3.5-5.1) mmol/L Chloride (98-107) mmol/L Carbon Dioxide (22-29) mmol/L Anion Gap (5-19) BUN (6-20) mg/dL Creatinine (0.5-0.9) mg/dL GFR Calculation (90-130) mL/min Glucose (65-115) mg/dL POC Glucose (70-110) mg/dL Calculated Osmolal ity (285-295) mOsm/k g Lactate (0.5-2.2) mmol/L Calcium (8.5-10.5) mg/dL Phosphorus (2.5-4.5) mg/dL Magnesium (1.7-2.3) mg/dL Total Bilirubin (0.15-1.2) mg/dL AST (0-32) U/L ALT (0-33) U/L Alkaline Phosphata se (35-105) IU/L Troponin T Baselin e (0-10) ng/L Troponin T 120 Min little traverse (0-10) ng/L Delta Troponin T (0-10) ABS# Troponin T Hi Sens 6Hr 27.72 H (0-10) ng/L Troponin T Hi Sens 6Hr Delta -4.28 L (0-12) ng/L C-Reactive Protein 133.4 H (0.0-4.9) mg/L NT-Pro-B Natriuret Pep (0-125) pg/mL Total Protein (6.6-8.7) g/dL Albumin (3.5-5.2) g/dL Globulin (1.3-4.6) g/dL Triglycerides (0-150) mg/dL Cholesterol (0-200) mg/dL LDL Cholesterol, C alc (50-129) mg/dL HDL Cholesterol (60-100) mg/dL LDL/HDL Ratio (0.00-3.22) RATI O Cholesterol/HDL Ra grace (0.0-4.40) mg/dL Procalcitonin 0.11 (0-0.5) ng/mL TSH (0.27-4.20) uIU/ mL Urine Color (Yellow) Urine Appearance (CLEAR) Urine pH (5-7) Ur Specific Gravit y (1.005-1.030) Urine Protein (Negative) Urine Glucose (UA) (Normal) Urine Ketones (Negative) Urine Blood (Negative) Urine Nitrate (Negative) Urine Bilirubin (Negative) Urine Urobilinogen (Negative) mg/dL Ur Leukocyte Maria Elena ase (Negative) SARS-CoV-2 Ag (Rap id) (Negative) 12/29/20 12/29/20 12/29/20 Range/Units 02:18 02:18 02:18 WBC (4.0-10.0) 10^3/ uL RBC (4.1-5.3) 10^6/u L Hgb (11.5-15.3) g/dL Hct (37.0-47.0) % MCV (81-99) fL MCH (28.0-34.0) pg MCHC (30.0-36.0) g/dL RDW (12.1-15.1) % Plt Count (130-400) 10^3/c mm MPV (7.4-10.4) fL Neut % (Auto) % Lymph % (Auto) % Tucker % (Auto) % Eos % (Auto) % Baso % (Auto) % Neut # (Auto) (1.8-7.7) 10^3/u L Lymph # (Auto) (0.8-4.8) 10^3/u L Tucker # (Auto) (0.2-0.9) 10^3/u L Eos # (Auto) (0.0-0.8) 10^3/u L Baso # (Auto) (0.0-0.1) 10^3/u L Nucleated RBC % (a uto) % Nucleated RBCs # /100WBC ESR (0-15) mm/hr D-Dimer (0-0.59) ug/mIFE U Specimen Type Sample Site ABG pH (7.35-7.45) ABG pCO2 (35-45) mmHg ABG pO2 (80.0-100.0) mmH g ABG HCO3 (22-26) mmol/L ABG Base Excess (-2.0-2.0) mmol/ L Freddy Test Hematocrit (37-47) % O2 Delivery Device O2 Liters/Min % FiO2 % R D Intern ID Sodium 130 L (136-145) mmol/L Potassium 5.4 H (3.5-5.1) mmol/L Chloride 94 L (98-107) mmol/L Carbon Dioxide 23 (22-29) mmol/L Anion Gap 18.4 (5-19) BUN 14 (6-20) mg/dL Creatinine 0.8 (0.5-0.9) mg/dL GFR Calculation 75.0 L (90-130) mL/min Glucose 232 H (65-115) mg/dL POC Glucose (70-110) mg/dL Calculated Osmolal ity 278 L (285-295) mOsm/k g Lactate (0.5-2.2) mmol/L Calcium 9.4 (8.5-10.5) mg/dL Phosphorus 2.9 (2.5-4.5) mg/dL Magnesium 1.4 L (1.7-2.3) mg/dL Total Bilirubin 0.3 (0.15-1.2) mg/dL AST 18 (0-32) U/L ALT 13 (0-33) U/L Alkaline Phosphata se 103 (35-105) IU/L Troponin T Baselin e (0-10) ng/L Troponin T 120 Min little traverse (0-10) ng/L Delta Troponin T (0-10) ABS# Troponin T Hi Sens 6Hr (0-10) ng/L Troponin T Hi Sens 6Hr Delta (0-12) ng/L C-Reactive Protein 166.0 H (0.0-4.9) mg/L NT-Pro-B Natriuret Pep 174 H (0-125) pg/mL Total Protein 6.4 L (6.6-8.7) g/dL Albumin 3.8 (3.5-5.2) g/dL Globulin 2.6 (1.3-4.6) g/dL Triglycerides 182 H (0-150) mg/dL Cholesterol 152 (0-200) mg/dL LDL Cholesterol, C alc 74 (50-129) mg/dL HDL Cholesterol 42 L (60-100) mg/dL LDL/HDL Ratio 1.76 (0.00-3.22) RATI O Cholesterol/HDL Ra grace 3.62 (0.0-4.40) mg/dL Procalcitonin 0.10 (0-0.5) ng/mL TSH 0.60 (0.27-4.20) uIU/ mL Urine Color (Yellow) Urine Appearance (CLEAR) Urine pH (5-7) Ur Specific Gravit y (1.005-1.030) Urine Protein (Negative) Urine Glucose (UA) (Normal) Urine Ketones (Negative) Urine Blood (Negative) Urine Nitrate (Negative) Urine Bilirubin (Negative) Urine Urobilinogen (Negative) mg/dL Ur Leukocyte Maria Elena ase (Negative) SARS-CoV-2 Ag (Rap id) (Negative) 12/29/20 12/29/20 Range/Units 07:27 09:20 WBC (4.0-10.0) 10^3/ uL RBC (4.1-5.3) 10^6/u L Hgb (11.5-15.3) g/dL Hct (37.0-47.0) % MCV (81-99) fL MCH (28.0-34.0) pg MCHC (30.0-36.0) g/dL RDW (12.1-15.1) % Plt Count (130-400) 10^3/c mm MPV (7.4-10.4) fL Neut % (Auto) % Lymph % (Auto) % Tucker % (Auto) % Eos % (Auto) % Baso % (Auto) % Neut # (Auto) (1.8-7.7) 10^3/u L Lymph # (Auto) (0.8-4.8) 10^3/u L Tucker # (Auto) (0.2-0.9) 10^3/u L Eos # (Auto) (0.0-0.8) 10^3/u L Baso # (Auto) (0.0-0.1) 10^3/u L Nucleated RBC % (a uto) % Nucleated RBCs # /100WBC ESR (0-15) mm/hr D-Dimer (0-0.59) ug/mIFE U Specimen Type Arterial Sample Site Radial, left ABG pH 7.52 H (7.35-7.45) ABG pCO2 29.5 L (35-45) mmHg ABG pO2 68.1 L (80.0-100.0) mmH g ABG HCO3 24.0 (22-26) mmol/L ABG Base Excess 2.1 H (-2.0-2.0) mmol/ L Freddy Test Pos Hematocrit 45.2 (37-47) % O2 Delivery Device Room air O2 Liters/Min 3.0 % FiO2 32.0 % R D Intern ID Gd Sodium (136-145) mmol/L Potassium (3.5-5.1) mmol/L Chloride (98-107) mmol/L Carbon Dioxide (22-29) mmol/L Anion Gap (5-19) BUN (6-20) mg/dL Creatinine (0.5-0.9) mg/dL GFR Calculation (90-130) mL/min Glucose (65-115) mg/dL POC Glucose 408 H (70-110) mg/dL Calculated Osmolal ity (285-295) mOsm/k g Lactate (0.5-2.2) mmol/L Calcium (8.5-10.5) mg/dL Phosphorus (2.5-4.5) mg/dL Magnesium (1.7-2.3) mg/dL Total Bilirubin (0.15-1.2) mg/dL AST (0-32) U/L ALT (0-33) U/L Alkaline Phosphata se (35-105) IU/L Troponin T Baselin e (0-10) ng/L Troponin T 120 Min [place] (0-10) ng/L Delta Troponin T (0-10) ABS# Troponin T Hi Sens 6Hr (0-10) ng/L Troponin T Hi Sens 6Hr Delta (0-12) ng/L C-Reactive Protein (0.0-4.9) mg/L NT-Pro-B Natriuret Pep (0-125) pg/mL Total Protein (6.6-8.7) g/dL Albumin (3.5-5.2) g/dL Globulin (1.3-4.6) g/dL Triglycerides (0-150) mg/dL Cholesterol (0-200) mg/dL LDL Cholesterol, C alc (50-129) mg/dL HDL Cholesterol (60-100) mg/dL LDL/HDL Ratio (0.00-3.22) RATI O Cholesterol/HDL Ra grace (0.0-4.40) mg/dL Procalcitonin (0-0.5) ng/mL TSH (0.27-4.20) uIU/ mL Urine Color (Yellow) Urine Appearance (CLEAR) Urine pH (5-7) Ur Specific Gravit y (1.005-1.030) Urine Protein (Negative) Urine Glucose (UA) (Normal) Urine Ketones (Negative) Urine Blood (Negative) Urine Nitrate (Negative) Urine Bilirubin (Negative) Urine Urobilinogen (Negative) mg/dL Ur Leukocyte Maria Elena ase (Negative) SARS-CoV-2 Ag (Rap id) (Negative) Discharge Plan Discharge Patient Disposition: Admitted As Inpatient Admit Provider: Kehinde Cruz Clinical Impression: Pericardial effusion, Congestive heart failure, Hypotension, Elevated troponin Condition: Stable Coding Level of Care Code ED Wash Driller Helper for Chg Fwd Exam Comprehensive
[2020-12-28] MEDS: aspirin 81 mg Chew Tablet 324 MG PO (18:53)
[2020-12-28] MEDS: sodium chloride 0.9% 1,000 ML 999 ML IV (19:22)
[2020-12-28 19:30] LABS: Basophils # 0.1 10^3/uL (0.0-0.1); Basophils % 0.3 %; Eosinophils # 0.2 10^3/uL (0.0-0.8); Eosinophils % 1.2 %; Hematocrit 38.3 % (37.0-47.0); Hemoglobin 12.4 g/dL (11.5-15.3); Lymphocytes # 2.3 10^3/uL (0.8-4.8); Lymphocytes % 14.7 %; Mean Corpuscular HGB Conc 32.4 g/dL (30.0-36.0); Mean Corpuscular Hemoglobin 27.1 pg (28.0-34.0); Mean Corpuscular Volume 83.8 fL (81-99); Mean Platelet Volume 9.7 fL (7.4-10.4); Monocytes # 1.3 10^3/uL (0.2-0.9); Monocytes % 8.4 %; Neutrophils # 11.57 10^3/uL (1.8-7.7); Neutrophils % 74.1 %; Nucleated Red Blood Cells % 0 %; Platelet Count 463 10^3/cmm (130-400); Red Blood Count 4.57 10^6/uL (4.1-5.3); Red Cell Distribution Width 14.8 % (12.1-15.1); White Blood Count 15.6 10^3/uL (4.0-10.0)
[2020-12-28 19:52] LABS: D Dimer 2.68 ug/mIFEU (0-0.59)
[2020-12-28 19:53] LABS: Add Urine Microscopic? NO
[2020-12-28 19:54] LABS: SARS Covid-2 Antigen Negative (Negative)
[2020-12-28 19:55] LABS: Bilirubin Urine Neg (Negative); Blood Urine Neg (Negative); Glucose Urine UA Trace (Normal); Ketones Urine Negative (Negative); Leukocyte Esterase Urine Negative (Negative); Nitrate Urine Negative (Negative); Protein Urine Neg (Negative); Urine Appearance Clear (CLEAR); Urine Color Yellow (Yellow); Urobilinogen Urine Norm (Negative); pH Urine 5 (5-7)
[2020-12-28 20:02] LABS: Troponin(5th) Baseline 32 ng/L (0-10)
[2020-12-28] MEDS: albuterol 8 gm MDI 2 PUFF INHALATION (20:04)
[2020-12-28 20:11] LABS: Alanine Aminotransferase 13 U/L (0-33); Albumin Level 3.7 g/dL (3.5-5.2); Alkaline Phosphatase 99 IU/L (35-105); Anion Gap 18.2 (5-19); Aspartate Amino Transferase 18 U/L (0-32); Blood Urea Nitrogen 15 mg/dL (6-20); Calcium 9.3 mg/dL (8.5-10.5); Carbon Dioxide 25 mmol/L (22-29); Chloride 90 mmol/L (98-107); Globulin 2.6 g/dL (1.3-4.6); Glomerular Filtration Rate 65.5 mL/min (90-130); Glucose 216 mg/dL (65-115); NT Pro B Type Natriuretic Pept 228 pg/mL (0-125); Osmolality Calculated 273 mOsm/kg (285-295); Potassium 5.2 mmol/L (3.5-5.1); Sodium 128 mmol/L (136-145); Total Bilirubin 0.2 mg/dL (0.15-1.2); Total Protein 6.3 g/dL (6.6-8.7)
--- NOTE | 2020-12-28 20:30 | ECG_ITS ---
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 Measurements Intervals [place] Rate: 98 P: -16 ID: [id number] QRS: 29 QRSD: 96 T: 51 QT: 357 QTc: 456 Interpretive Statements SINUS RHYTHM LOW QRS VOLTAGE IN PRECORDIAL LEADS [QRS DEFLECTION < 1.0 mV IN CHEST LEADS] NONSPECIFIC ST ELEVATION [0.05+ mV ST ELEVATION] Compared to ECG 12/28/2020 18:16:21 Low QRS voltage now present ST (T wave) deviation now present Electronically Signed On 12-30-2020 0:05:33 CDT by Troy Joyce M.D. [email or web address]
--- NOTE | 2020-12-28 20:57 | CTR_ITS ---
PROCEDURE INFORMATION: Exam: CT Angiography Chest With Contrast Exam date and time: 12/28/2020 9:23 PM Age: 55 years old Clinical indication: Abnormal findings; Abnormal diagnostic tests; Elevated d-dimer; Patient HX: Elev d-dimer w cp radiating to L shoulder; Additional info: R/O pe TECHNIQUE: Imaging protocol: Computed tomographic angiography of the chest with contrast. 3D rendering (Not supervised by radiologist): MIP and/or 3D reconstructed images were created by the technologist. Radiation optimization: All CT scans at this facility use at least one of these dose optimization techniques: automated exposure control; mA and/or kV adjustment per patient size (includes targeted exams where dose is matched to clinical indication); or iterative reconstruction. Contrast material: OMNI 350; Contrast volume: 67 ml; Contrast route: INTRAVENOUS (IV); COMPARISON: CT angio chest PE protcl [id number] 07/03/2020 2:51 PM RADIATION DOSE METRICS: Total DLP (mGy-cm): 501.69 FINDINGS: Pulmonary arteries: Normal. No pulmonary emboli. Aorta: Unremarkable. No aortic aneurysm. No aortic dissection. Arch vessels: Stable circumferential wall thickening with moderate to severe narrowing of the proximal innominate artery. Stable circumferential wall thickening of the origin of the left common carotid artery with mild stenosis. Lungs: Diffuse ground-glass opacities in both lungs with intermixed interlobular septal thickening. This has an upper lobe predominance. Scattered atelectasis in both lungs. Calcified granuloma in the left lower lobe. Pleural spaces: Unremarkable. No pneumothorax. No pleural effusion. Heart: Moderate pericardial effusion. Coronary artery calcifications. Lymph nodes: Prominent mediastinal and hilar lymph nodes are most likely reactive. Spleen: Calcified granulomas in the spleen. Bones/joints: Unremarkable. No acute fracture. Soft tissues: Unremarkable. CT/CT angio chest PE protcl [id number] IMPRESSION: 1. No evidence for pulmonary embolus. 2. Diffuse interstitial and ground-glass opacities could represent atypical pneumonia, hypersensitivity pneumonitis, or pulmonary edema. 3. Moderate pericardial effusion, new since the prior study. 4. Prominent mediastinal and hilar lymph nodes are most likely reactive or inflammatory. 5. Circumferential wall thickening and narrowing in the proximal left common carotid artery and innominate artery. This could represent plaque, intimal hyperplasia or arteritis. This can be further evaluated with a CTA neck. Radiation Dose CTDIVOL = (mGy): DLP = 501.69 (mGy-cm)
[2020-12-28 21:17] LABS: Troponin 5 2HR 30.75 ng/L (0-10)
[2020-12-28 21:20] LABS: Troponin 5 2HR Delta -1.25 ABS# (0-10)
[2020-12-28] MEDS: iohexol 350 mg/mL 100 mL Btl IV (21:44)
--- NOTE | 2020-12-28 23:39 | P.HP_ITS ---
Providers/Chief Complaint Primary Care Provider: CHARLOTTE Pugh Chief Complaint: chest pain History of Present Illness Mayra Ascencio is a 55 year old female with a past medical history of CAD x5, last stenting in April 2020, COPD, current smoker, CHF, insulin-dependent type 2 diabetes mellitus, hypertension, hyperlipidemia, fibromyalgia, on chronic opiate therapy, history of prostatic joint infection, who presents to [facility] due to complaints of chest pain shortness of breath. Patient tells me that this morning she had an episode of substernal chest pain radiating to her back, associate with shortness of breath, the pain resolved on its own, but again in the afternoon she had an episode of substernal chest pain, pressure- like pain, radiating to her back, associate with shortness of breath, no lightheadedness, no diaphoresis, she took up to 6 nitro to relieve the pain, currently is chest pain-free. In the ER she was found initially to hypotensive with blood pressure 89/54, tachycardic heart rates as high as 106, complaining of shortness of breath, chest pain, EKG shows nonspecific ST elevations in 3 and aVF, fairly nonspecific, troponins are minimally elevated, she was given fluid hydration which improved the blood pressures in the tachycardia, she did take 6 nitro pills, and she did have a lidocaine patch on T angiogram of the chest showed a moderate pericardial effusion, ER physician discussed with Dr. Joyce, who recommended overnight admission cardiac echocardiogram and monitoring. Review of Systems Const: Denies: fever(s), chills, fatigue or malaise Eyes: Denies: change in vision or blurry vision ENMT: Denies: nasal congestion Card: Reports: chest pain and dyspnea on exertion; Denies: irregular heart rhythm, edema, lightheadedness, syncope, pre-syncope or orthopnea Resp: Reports: dyspnea; Denies: productive cough, non-productive cough or wheezing GI: Denies: abdominal pain, nausea, vomiting, hematemesis, diarrhea, constipation, hematochezia or melena : Denies: flank pain, dysuria or urinary frequency Musc: Denies: neck pain or back pain Skin/Breast: Denies: rash Neuro: Denies: headache(s), dizziness or vertigo Endo: Denies: polyuria or polydipsia Medications/Allergies Home Medications Medication Instructions Recorded Confirmed Last Taken Type pantoprazole 40 mg tablet,delayed 40 mg PO DAILY@11/05/19 12/25/20 09/28/20 History release topiramate 50 mg tablet 50 mg PO BID@11/05/19 12/25/20 09/28/20 History atorvastatin 40 mg PO DAILY@06/14/20 12/25/20 09/28/20 History albuterol sulfate 90 mcg/actuation 2 puff INHALATION QID PRN 30 Days 08/26/20 12/25/20 09/28/20 Rx aerosol inhaler #6.7 gm budesonide-formoterol HFA 160 2 puff INHALATION Q12H #10.2 gm 08/26/20 12/25/20 09/28/20 Rx mcg-4.5 mcg/actuation aerosol inhaler Brilinta 90 mg PO BID@09/29/20 12/25/20 09/28/20 History Keppra 1,500 mg PO BID@09/29/20 12/25/20 09/28/20 History Levemir FlexTouch U-100 Insuln 10 unit SUBCUT DAILY@09/29/20 12/25/20 09/28/20 History Seroquel 50 mg PO BEDTIME@09/29/20 12/25/20 09/28/20 History aspirin 81 mg PO DAILY@09/29/20 12/25/20 09/28/20 History ranolazine 1,000 mg PO BID@09/29/20 12/25/20 09/28/20 History acetaminophen 650 mg PO Q6H PRN #30 tab 10/16/20 12/25/20 Unknown Rx cyanocobalamin (vitamin B-12) 500 mcg PO DAILY #30 tab 10/16/20 12/25/20 Unknown Rx [Vitamin B-12] ferrous sulfate 325 mg PO BIDWM #60 tab 10/16/20 12/25/20 Unknown Rx folic acid 1 mg PO DAILY #30 tab 10/16/20 12/25/20 Unknown Rx midodrine 5 mg PO BID #60 tab 10/16/20 12/25/20 Unknown Rx nitroglycerin 0.4 mg sublingual See Rx Instructions .ROUTE 11/06/20 12/25/20 Unknown Rx tablet .COMPLEX #25 tab Walker #1 ea 11/18/20 12/25/20 Unknown Rx fluconazole 150 mg tablet 150 mg PO Q3D #2 tab 11/18/20 12/25/20 Unknown Rx miconazole nitrate 100 mg vaginal 200 mg VAGINAL ONCE 3 Days #7 ea 11/18/20 12/25/20 Unknown Rx suppository sulfamethoxazole 800 1 tab PO BID 42 Days #84 tab 11/18/20 12/25/20 Unknown Rx mg-trimethoprim 160 mg tablet sulfamethoxazole 400 1 tab PO DAILY 90 Days #90 tab 12/16/20 12/25/20 Unknown Rx mg-trimethoprim 80 mg tablet cyclobenzaprine 10 mg tablet 10 mg PO TID PRN 30 Days #90 tab 12/25/20 12/25/20 Unknown Rx duloxetine 60 mg capsule,delayed 60 mg PO DAILY@08 30 Days #30 cap 12/25/20 12/25/20 Unknown Rx release sprinkle hydromorphone 2 mg tablet 2 mg PO TID PRN 30 Days #21 tab 12/25/20 12/25/20 Unknown Rx pregabalin 150 mg capsule 150 mg PO BID 30 Days #60 cap 12/25/20 12/25/20 Unknown Rx tramadol 50 mg tablet 50 mg .ROUTE .5 times a day PRN 30 12/25/20 12/25/20 Unknown Rx Days #150 tab Allergies Allergy/AdvReac Type Severity Reaction Status Date / Time adhesive Allergy Unknown Verified 12/28/20 18:18 clindamycin Allergy ADR-Itching Verified 12/28/20 18:18 codeine Allergy Unknown Verified 12/28/20 18:18 hydrocodone Allergy Unknown Verified 12/28/20 18:18 latex Allergy ALGY-Swell Verified 12/28/20 18:18 Lip/Tongue/Throat naproxen [From Naprosyn] Allergy Unknown Verified 12/28/20 18:18 nut - unspecified Allergy ALGY-Anaphy Verified 12/28/20 18:18 laxis oxycodone [From Roxicodone] Allergy ADR-Muscle Verified 12/28/20 18:18 Pain Penicillins Allergy Unknown Verified 12/28/20 18:18 sulfamethoxazole Allergy ADR-Migrain Verified 12/28/20 18:18 [From Bactrim] e trimethoprim [From Bactrim] Allergy ADR-Migrain Verified 12/28/20 18:18 e PFSH Acute PFSH: Medical History (Updated 12/28/20 @ 23:47 by Kehinde Cruz MD) Atherosclerotic heart disease of [place] coronary artery with unspecified angina pectoris Chest pain, midsternal Chronic congestive heart failure Chronic left-sided low back pain Chronic obstructive pulmonary disease, unspecified Chronic pain of left knee Congestive heart failure Current every day smoker CVA (cerebral vascular accident) Dyslipidemia Encounter for long-term opiate analgesic use Essential hypertension Fibromyalgia Fibromyalgia, primary Hyperlipidemia, mixed Insomnia Intervertebral disc disorder of lumbar region with myelopathy Low back pain radiating to both legs Lumbosacral spondylosis without myelopathy NSTEMI (non-ST elevated myocardial infarction) Thought to be secondary to plaque rupture. Angiogram July 04 no flow- limiting lesions, or restenosis of previous stent from April 2020 Opioid contract exists Osteoarthritis of spine at multiple levels Type 2 diabetes mellitus with diabetic autonomic (poly)neuropathy Vitamin D deficiency Surgical History History of arthroscopic surgery of elbow BILATERAL History of coronary angiogram Angiogram April 2020 with 90% circumflex lesion, drug-eluting stent placed by Dr. Jerome S/p bilateral carpal tunnel release S/P hysterectomy S/P knee surgery RIGHT S/P lumbar fusion DR. Shreya ZAYAS IN [place], [place] L4-L5, L5-S1 Status post lumbar laminectomy Family History Other CAD (coronary artery disease) Cancer Diabetes Social History Smoking and tobacco status: current every day smoker cigarettes [ Other cigarette details: PER PATIENT REPORT ] Second hand smoke exposure: Yes Smoking risk assessment/counseling performed?: Yes Alcohol intake: former Desire information about alcohol rehabilitation?: No Counseling given: No Desire information about substance/drug rehabilitation?: No Counseling given: No Caregiver/support person: No Lives independently: Yes Household members: family and other Details: son Housing: Manufactured/Mobile home Marital status: Unknown Marital status details: She and son state she is not service: No Current occupational status: unemployed Pets and animals: Yes History of recent travel: No Current gender identity: Female Vitals/I&O/Wt Last Vital Signs Temp 99.2 F 03/14/21 18:18 Pulse 99 12/28/20 22:41 Resp 20 H 12/28/20 22:41 BP 106/54 12/28/20 22:41 Pulse Ox 96 12/28/20 22:41 Weight last 48 hrs Weight 97.522 kg Physical Exam Const: COMMON NORMALS: no acute distress and patient oriented x3 GENERAL APPEARANCE: cooperative and comfortable HENMT: COMMON NORMALS: normocephalic HEAD & SCALP: normocephalic Eye: COMMON NORMALS: Equal, round and reactive pupils present and EOMs intact bilaterally GENERAL EYE: appearance normal, both eyes and all related structures PUPIL: Yes Equal, round and reactive pupils present Neck/C-Spine: COMMON NORMALS: full ROM, no lymphadenopathy, no JVD and Thyroid normal THYROID: Thyroid normal Lymph: LYMPHATIC: no lymphadenopathy noted Resp: COMMON NORMALS: normal respiratory effort, No retractions, No use of accessory muscles and clear to auscultation bilaterally AUSCULTATION: wheezes Cardio: COMMON NORMALS: no JVD, regular rate, regular rhythm, S1 normal heart sound present, S2 normal heart sound present, No gallops present (Cardio), No clicks present (Cardio) and No murmurs present (Cardio) RATE: regular rate RHYTHM: regular rhythm HEART SOUNDS: S1 normal heart sound present and S2 normal heart sound present GI: COMMON NORMALS: Normal to inspection, nondistended, normoactive bowel sounds present, Soft to palpation, non-tender and No hepatosplenomegaly present PALPATION: Yes Soft to palpation and Yes No hepatosplenomegaly present Extremity: COMMON NORMALS: normal to inspection, full ROM and no pedal edema Neuro: COMMON NORMALS: patient oriented x3, CN's II-XII intact bilaterally, moves all extremities and no focal motor deficits Psych: COMMON NORMALS: mental status grossly normal, Normal thought process present and cooperative THOUGHT PROCESS: Normal thought process present Data : 12/28/20 19:07 12/28/20 19:07 A&P Assessment and plan (1) Pericardial effusion: -Seen on CT angiogram -Had hypotensive episodes in ER, tachycardia -WBC 15.6 -Improved with fluid hydration -Currently complaining of shortness of breath and chest pain -ER physician discussed with cardiology, will order cardiac echocardiogram Status: Acute (2) Pneumonia: -CT angiogram did show diffuse interstitial and groundglass opacities -Has shortness of breath, chronic cough is a smoker, has COPD -We will treat for atypical pneumonia, with Levaquin Status: Acute (3) COPD exacerbation: Had active wheezing on examination, will start her on steroids, antibiotics as above Status: Acute (4) NSTEMI (non-ST elevated myocardial infarction): Her presenting complaint was chest pain, substernal, and shortness of breath -Troponins minimally elevated -EKG did show nonspecific ST elevations very slight in 3 and aVF -Follow troponins, serial EKGs, monitor for chest pain, active shortness of breath, telemetry monitoring -Continue aspirin, statin, Brilinta Status: Acute (5) Obesity (BMI 35.0-39.9 without comorbidity): Status: Acute (6) Coronary artery disease due to type 2 diabetes mellitus: Status: Acute (7) Diabetes type 2, uncontrolled: Continue low-dose sliding scale Status: Acute Qualifiers: Glycemic state: with hyperglycemia Qualified Code(s): E11.65 - Type 2 diabetes mellitus with hyperglycemia (8) Congestive heart failure: Status: Chronic Qualifiers: Heart failure type: unspecified Heart failure chronicity: unspecified Qualified Code(s): I50.9 - Heart failure, unspecified (9) Essential hypertension: Status: Chronic (10) Fibromyalgia: Patient takes a lot of opiate medications, will hold for now Status: Chronic Attestations Medical Necessity Statement*: Patient requires hospitalization, outpatient with observation, for chest pain, NSTEMI, pneumonia, COPD exacerbation, pericardial effusion Coding Level of Care Code Acute Final Inspector Shuttle for [facility] Diagnoses Pericardial effusion I31.3 Pneumonia J18.9 COPD exacerbation J44.1 NSTEMI (non-ST elevated myocardial infarction) I21.4 Obesity (BMI 35.0-39.9 without comorbidity) E66.9 Coronary artery disease due to type 2 diabetes mellitus E11.59; I25.10 Diabetes type 2, uncontrolled E11.65 Glycemic state: with hyperglycemia Congestive heart failure I50.9 Heart failure type: unspecified Heart failure chronicity: unspecified Essential hypertension I10 Fibromyalgia M79.7
[2020-12-29] VITALS (50 sets, daily range): BP systolic 53–174; BP diastolic 22–102; PULSE 93–155; RESP 13–32; TEMP 36.7–37.2; O2SAT 88–97
--- NOTE | 2020-12-29 00:05 | USCV_ITS ---
Mayra Ascencio Age: 55 Gender: F : 1965 Exam Date: 12/29/2020 01:37 Ordering Phys: Kehinde Cruz MD Technologist: Briana Huntley Exam Location: [facility] [place] Indication: PC EFFUSION BP: 79 / HR: 99 Rhythm: Sinus Technical Quality: Technically difficult study MEASUREMENTS (Male / Female) Normal Values 2D ECHO LV Diastolic Diameter PLAX 5.2 cm 4.2 - 5.9 / 3.9 - 5.3 cm LV Systolic Diameter PLAX 2.5 cm IVS Diastolic Thickness 0.9 cm 0.6 - 1.0 / 0.6 - 0.9 cm IVS Systolic Thickness 1.4 cm LVPW Diastolic Thickness 0.5 cm 0.6 - 1.0 / 0.6 - 0.9 cm LVPW Systolic Thickness 1.9 cm LVOT Diameter 2.1 cm LV Ejection Fraction 2D Teich 83.4 % LV Ejection Fraction MOD 2C 71.4 % LV Ejection Fraction 2C AL 73.9 % LA Diameter 3.8 cm LA Width 3.2 cm LA Height 5.2 cm RA Width 3.3 cm RA Height 5.1 cm Aorta at Sinotubular Diameter 2.4 cm M-MODE LV Diastolic Diameter MM 5.3 cm 4.2 - 5.9 / 3.9 - 5.3 cm LV Systolic Diameter MM 3.7 cm LV Ejection Fraction MM Teich 56.1 % IVS Diastolic Thickness MM 0.6 cm 0.6 - 1.0 / 0.6 - 0.9 cm IVS Systolic Thickness MM 1.2 cm LVPW Diastolic Thickness MM 0.6 cm 0.6 - 1.0 / 0.6 - 0.9 cm LVPW Systolic Thickness MM 1.1 cm Aortic Annulus Diameter 2.5 cm LA Ao Ratio MM 1.6 MV E Point Septal Separation 0.3 cm DOPPLER AV Peak Velocity 158.0 cm/s LVOT Peak Velocity 132.0 cm/s AV Area Cont Eq vti 3.0 cm squared AV Area Cont Eq pk 2.8 cm squared MV Peak Velocity 105.0 cm/s MV Area PHT 5.4 cm squared Mitral E to A Ratio 1.3 MV E' Velocity 59.5 cm/s Mitral E to MV E' Ratio 10.7 Mitral E to LV E' Lateral Ratio 9.6 Mitral E to LV E' Septal Ratio 12.0 PV Peak Velocity 148.3 cm/s RV Acceleration Time 0.2 s RV Ejection Time 0.3 s RV AcT/ET 0.5 FINDINGS Left Ventricle Normal left ventricular size and systolic function, EF 70 %. No regional wall motion abnormalities. Right Ventricle The right ventricle is normal in size and function. Right Atrium The right atrium is normal in size. Left Atrium The left atrium is normal in size. Mitral Valve Thickened mitral valve. Aortic Valve The noncoronary cusp of the aortic valve appears to be thickened. Tricuspid Valve No gross abnormalities noted Pulmonic Valve Pulmonic valve not well visualized. Pericardium Small to moderate pericardial effusion Aorta Normal ascending aorta dimension. CONCLUSIONS Normal left ventricular size and systolic function, EF 70 %. No regional wall motion abnormalities. Small to moderate pericardial effusion. No echocardiographic evidence of tamponade Thickened noncoronary cusp of the aortic valve. Minimally thickened mitral valve. There are no intracardiac masses. No previous study is available for comparison. Dr Troy Joyce MD FACC (Electronically Signed) Final Date: 29 December 2020 09:33 S
--- NOTE | 2020-12-29 00:30 | ECG_ITS ---
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 Measurements Intervals [place] Rate: 103 P: 91 ND: 194 QRS: 16 QRSD: 94 T: 34 QT: 345 QTc: 453 Interpretive Statements SINUS TACHYCARDIA ABNORMAL RHYTHM ECG Compared to ECG 12/28/2020 20:24:19 Sinus rhythm no longer present ST (T wave) deviation no longer present Electronically Signed On 12-31-2020 8:02:45 CDT by Marlee Olmos M.D. [id number]
--- NOTE | 2020-12-29 00:31 | PC.NURSE ---
Dr. Cruz notified of blood pressure running 50s systolic even with manual blood pressure cuff. Ordered to give 500 ml bolus LR and one dose narcan and call him back if BP doesn't improve.
[2020-12-29] MEDS: enoxaparin 40 mg/0.4 mL Syringe SUBCUT (00:39)
[2020-12-29] MEDS: lactated ringers 500 ML 999 ML IV (00:40)
[2020-12-29] MEDS: naloxone 0.4 mg/ml SDV IVP (00:40)
--- NOTE | 2020-12-29 00:46 | PC.NURSE ---
Dr. Cruz in room to see patient. Ordered to start a Levophed drip and transfer patient to ICU.
[2020-12-29 01:20] LABS: Lactate (Lactic Acid level) 2.1 mmol/L (0.5-2.2)
[2020-12-29 01:29] LABS: Procalcitonin 0.11 ng/mL (0-0.5)
[2020-12-29 01:40] LABS: C Reactive Protein 133.4 mg/L (0.0-4.9)
--- NOTE | 2020-12-29 01:51 | ECG_ITS ---
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 Measurements Intervals [place] Rate: 99 P: 45 WV: 192 QRS: 13 QRSD: 92 T: 31 QT: 343 QTc: 440 Interpretive Statements SINUS RHYTHM Compared to ECG 12/29/2020 00:03:47 Sinus tachycardia no longer present Electronically Signed On 12-29-2020 23:55:04 CDT by Troy Joyce M.D. [id number]
--- NOTE | 2020-12-29 01:56 | PC.PHAR ---
Pharmacokinetic dosing service Date: 12/29/20 Time: 199 Objective: Patient: Mayra Ascencio Floor: ICU-10 Age: 55 yo Serum creatinine: 0.9 mg/dL Height: 65.0 Inches Weight (kg): 97.522 Diagnosis: Relevant medical/social history: Cultures and sensitivities: Other labs: Assessment: IBW (kg): 57.00 Dosing wt(kg): 97.522 Estimated Creatinine clearance (ml/min): 65.0 CRCL method: Cockcroft and Gault using ibw(default). Drug selected: Vancomycin Loading dose (mg): 0 Vd (liters): 87.8 (factor used: 0.9 L/kg) Manuel (hr-1): 0.058 Half life (hrs): 11.95 Recommended dose: 1500 mg Interval: 12 hrs Infusion time (hrs): 1.5 Predicted peak (mcg/mL): 32.6 Predicted trough (mcg/mL): 17.73 Total body weight is being used for vancomycin dosing. Renal function is stable [ ] /unstable [ ] Recommendations: Give Vancomycin 1500 mg q 12 hrs with an expected Cpeak of 32.6 mcg/ml and an expected Ctrough of 17.73 mcg/ml Renal dosing of other antibiotics (review renal dosing of other medications and list guidelines here): Thank you for the consult, will continue to follow. Signature: Aura Cline [facility]
[2020-12-29 02:28] LABS: Erythrocyte Sedimentation Rate 52 mm/hr (0-15)
[2020-12-29] MEDS: FUROsemide 10 mg/mL SDV 4mL 40 MG IVP ×2 (02:38→04:06)
[2020-12-29] MEDS: vancomycin 1,500 MG/300 ML PIGGYBACK 200 MG IV (02:45)
[2020-12-29 03:26] LABS: Alanine Aminotransferase 13 U/L (0-33); Albumin Level 3.8 g/dL (3.5-5.2); Alkaline Phosphatase 103 IU/L (35-105); Anion Gap 18.4 (5-19); Aspartate Amino Transferase 18 U/L (0-32); Blood Urea Nitrogen 14 mg/dL (6-20); Calcium 9.4 mg/dL (8.5-10.5); Carbon Dioxide 23 mmol/L (22-29); Chloride 94 mmol/L (98-107); Globulin 2.6 g/dL (1.3-4.6); Glucose 232 mg/dL (65-115); Magnesium 1.4 mg/dL (1.7-2.3); Osmolality Calculated 278 mOsm/kg (285-295); Potassium 5.4 mmol/L (3.5-5.1); Sodium 130 mmol/L (136-145); Total Bilirubin 0.3 mg/dL (0.15-1.2); Total Protein 6.4 g/dL (6.6-8.7)
[2020-12-29 03:27] LABS: Basophils # 0.1 10^3/uL (0.0-0.1); Basophils % 0.3 %; Eosinophils # 0.2 10^3/uL (0.0-0.8); Hematocrit 38.7 % (37.0-47.0); Hemoglobin 12.6 g/dL (11.5-15.3); Lymphocytes # 2.2 10^3/uL (0.8-4.8); Lymphocytes % 10.5 %; Mean Corpuscular HGB Conc 32.6 g/dL (30.0-36.0); Mean Corpuscular Hemoglobin 27.4 pg (28.0-34.0); Mean Corpuscular Volume 84.1 fL (81-99); Monocytes # 1.7 10^3/uL (0.2-0.9); Monocytes % 8.1 %; Neutrophils # 16.47 10^3/uL (1.8-7.7); Neutrophils % 78.7 %; Nucleated Red Blood Cells % 0 %; Platelet Count 522 10^3/cmm (130-400); White Blood Count 20.9 10^3/uL (4.0-10.0)
[2020-12-29 03:31] LABS: Troponin 5 6HR 27.72 ng/L (0-10)
[2020-12-29 03:38] LABS: NT Pro B Type Natriuretic Pept 174 pg/mL (0-125)
[2020-12-29 03:39] LABS: Phosphorus 2.9 mg/dL (2.5-4.5); Troponin 5 6HR Delta -4.28 ng/L (0-12)
[2020-12-29 03:50] LABS: Chol HDL Ratio 3.62 mg/dL (0.0-4.40); Cholesterol 152 mg/dL (0-200); HDL Cholesterol 42 mg/dL (60-100); LDL Cholesterol Calculated 74 mg/dL (50-129); LDL HDL Ratio 1.76 RATIO (0.00-3.22); Triglycerides 182 mg/dL (0-150)
--- NOTE | 2020-12-29 04:45 | PC.NURSE ---
0115 - Received patient from CSU via bed with nurse at bedside. Unable to obtain blood pressure with automatic cuff and manual cuff. Systolic blood pressure of 74 obtained with doppler. 0125 -- Levophed started at 10mcg/min, Echocardiogram in progress at bedside. 013 -- Blood pressure 87/73. Patient remains alert, awake, and oriented x3. Respirations remain labored with very coarse wet respirations noted when auscultated. 0210--Dr. Cruz called and stated that he had spoken to Dr. Joyce and he does not feel like the pericardial effusion is large enough to tap. Notified Dr Cruz that patients lung sounds are very wet and coarse and her breathing is labored. Order given to insert reyes, give 40mg of lasix IVP now, may increase levophed to 20mcg/min if needed. 0315 -- Dr. Cruz at bedside, Right IJ central line inserted without complications. Chest x-ray done to confirm placement. Order given to give patient an additional 40mg lasix IVP. 0430 -- Patient resting comfortably with unlabored respirations. Blood pressure improved, weaning levophed as tolerated.
--- NOTE | 2020-12-29 05:20 | PC.NURSE ---
0230 - Prior to inserting reyes, patient questioned about latex allergy and stated that the reyes catheters don't bother her, she has had them before.
--- NOTE | 2020-12-29 06:08 | PM.ACPR ---
Acute Procedures Central Line Placement^: Right IJ: Time out performed: Yes Patient placed on monitor/pulse ox: Yes MD prep: mask, gown, gloves and other Central line prep: Chlorhexidine scrub Local anesthesia used: lidocaine 1% Amount of anesthesia used (ml): 5 Ultrasound used for placement: Yes Central line lumen inserted: triple Post procedure: sutured in place Post procedure x-ray: tip of catheter in good position Patient tolerated procedure: well Complications: none Additional comments: Placement of central line confirmed with ultrasound, flash of dark blood was seen when right IJ was penetrated, nonpulsatile
[2020-12-29] MEDS: ticagrelor 90 mg Tablet PO ×2 (07:58→20:44)
[2020-12-29] MEDS: cyclobenzaprine 10 mg Tablet PO (07:58)
[2020-12-29] MEDS: duloxetine 60 mg Capsule PO (07:58)
[2020-12-29] MEDS: levETIRAcetam 500 mg Tablet 1500 MG PO ×2 (07:58→20:44)
[2020-12-29] MEDS: ferrous sulfate EC 325 mg Tablet PO ×2 (07:59→17:11)
[2020-12-29] MEDS: pregabalin 150 mg Capsule PO ×2 (07:59→17:11)
[2020-12-29] MEDS: pantoprazole DR 40 mg Tablet PO (07:59)
[2020-12-29] MEDS: aspirin 81 mg Chew Tablet PO (07:59)
[2020-12-29] MEDS: topiramate 25 mg Tablet 50 MG PO ×2 (07:59→20:44)
--- NOTE | 2020-12-29 08:00 | PC.NURSE ---
Patient's breathing becomes labored with activity.
[2020-12-29] MEDS: midodrine 5 mg TABLET PO ×2 (08:13→17:11)
[2020-12-29] MEDS: folic acid 1 mg Tablet PO (08:13)
[2020-12-29] MEDS: cyanocobalamin 1,000 mcg Tablet 500 MCG PO (08:13)
[2020-12-29 08:14] LABS: Glucose Point of Care 408 mg/dL (70-110)
[2020-12-29] MEDS: ipratropium-albuterol 3 mL Neb INHALATION ×2 (08:19→14:45)
--- NOTE | 2020-12-29 08:40 | PM.PN ---
Subjective Subjective: Interval history: This morning she reports that she is feeling much better compared to yesterday. She says that yesterday she was feeling very ill. A says that her breathing is more comfortable. She denies chest pain. Denies feeling lightheaded or dizzy. Vitals/I&O/Wt Last Vital Signs Temp 98.9 F 12/29/20 08:00 Pulse 118 H 12/29/20 08:25 Resp 20 H 12/29/20 08:19 BP 99/67 12/29/20 08:15 Pulse Ox 94 12/29/20 08:19 12/28/20 12/29/20 12/29/20 22:59 06:59 14:59 Intake Total 2170.657 / 2170.657 41.273 / 41.273 Output Total 4300 / 4300 Balance -2129.343 / -2129.343 41.273 / 41.273 Weight last 48 hrs Weight 109.18 kg Weight 97.522 kg Physical Exam Const: COMMON NORMALS: no acute distress, patient oriented x3 and alert GENERAL APPEARANCE: cooperative ORIENTATION/CONSCIOUSNESS: Yes awake HENMT: COMMON NORMALS: oropharynx normal Neck/C-Spine: COMMON NORMALS: no JVD OTHER: Right IJ CVC. Resp: COMMON NORMALS: normal respiratory effort AUSCULTATION: diminished lung sounds Cardio: COMMON NORMALS: no JVD, S1 normal heart sound present, S2 normal heart sound present and No murmurs present (Cardio) RATE: tachycardic RHYTHM: abnormal rhythm HEART SOUNDS: S1 normal heart sound present and S2 normal heart sound present GI: COMMON NORMALS: Normal to inspection, nondistended, normoactive bowel sounds present, Soft to palpation and non-tender PALPATION: Yes Soft to palpation Extremity: COMMON NORMALS: no joint enlargement and no pedal edema Neuro: COMMON NORMALS: patient oriented x3 and moves all extremities SENSORIUM/ORIENTATION: Yes alert Skin: COMMON NORMALS: no rashes or lesions noted GENERAL SKIN EXAM: no rashes or lesions noted OTHER: Small pressure ulcer at the cecum to the left of midline, about 4 cm long lesion, about 1-2 cm wide. Softened eschar on top. No bleeding or drainage. Minimal ring of erythema. Healing pressure ulcer on the plantar/posterior aspect of the right heel, about 2 cm in size, no drainage. No surrounding erythema. Urinary Catheter Management^: [place]: Cath Placed During This Visit: yes Reason for Continuing Indwelling Catheter: Accurate Measurement of Urinary Output in Critically Ill Patients Urinary Catheter Date of Insertion: 12/29/20 Urinary Catheter Time of Insertion: 03:40 Data : 12/29/20 02:18 12/29/20 02:18 Micro: Microbiology 12/29/20 07:25 Blood Culture - Preliminary Blood SPECIMEN COLLECTED 12/29/20 07:30 Blood Culture - Preliminary Blood SPECIMEN COLLECTED A&P Assessment and plan (1) Hypotension: Improving. Suspected septic shock. Continue treatment as below. Probability of cardiogenic shock appears to be low. Appreciate additional cardiology assessment and recommendations. With concern for possibility of adrenal sufficiency as well. Continue steroids as started. Currently on 5 mcg Levophed infusion. Continue to wean down as tolerating. Status: Acute (2) Pericardial effusion: TTE taken. Pending official interpretation. Preliminary results appears effusion may be mild-moderate as per nighttime physician documentation. We will await report, additional cardiology recommendations. She has received Lasix this morning. For now we will hold off additional diuresis. Monitor hemodynamic and volume status. ESR noted elevated at 52. This does not appear, however, chronic going as far back as 2019. Autoimmune antibodies sent and pending. Status: Acute (3) Pneumonia: With concern for sepsis present on admission, septic shock. Continue Primaxin, vancomycin. Follow-up cultures. With groundglass opacities, elevated D-dimer, troponin abnormality, septic shock we will go ahead and confirm COVID-19 PCR. -CT angiogram did show diffuse interstitial and groundglass opacities -Has shortness of breath, chronic cough is a smoker, has COPD Status: Acute (4) COPD exacerbation: Continue antibiotics, steroids, breathing treatments. Follow-up sputum cultures. Chronically on 2 L oxygen by nasal cannula. Status: Acute (5) NSTEMI (non-ST elevated myocardial infarction): Currently she does not have any chest pain. Troponin was without a peak, with gradual decline. Consideration is that this or other was secondary to demand ischemia with septic shock. Follow-up echocardiography, cardiology recommendations. Her presenting complaint was chest pain, substernal, and shortness of breath -Continue aspirin, statin, Brilinta Status: Acute (6) Obesity (BMI 35.0-39.9 without comorbidity): Status: Acute (7) Coronary artery disease due to type 2 diabetes mellitus: Status: Acute (8) Diabetes type 2, uncontrolled: Continue low-dose sliding scale Status: Acute Qualifiers: Glycemic state: with hyperglycemia Qualified Code(s): E11.65 - Type 2 diabetes mellitus with hyperglycemia (9) Congestive heart failure: With possible congestive changes on imaging, received 80 mg Lasix this morning. Monitor I&O, volume status, hemodynamics. Additional diuresis depending on condition. Status: Chronic Qualifiers: Heart failure type: unspecified Heart failure chronicity: unspecified Qualified Code(s): I50.9 - Heart failure, unspecified (10) Essential hypertension: Status: Chronic (11) Fibromyalgia: Patient takes a lot of opiate medications, will hold for now Status: Chronic Attestations Medical Necessity Statement*: Continue admission for assessment of management of septic shock, pneumonia, in the setting of pericardial effusion, possible adrenal insufficiency, CHF. Critical Care Time: 35 minutes critical care time spent on assessment and management of hemodynamic instability, hypotension requiring pressors, pneumonia, sepsis and septic shock, management of antibiotics, assessment of infection sources also additional assessment of pericardial effusion, CHF. Coding Level of Care Code Acute Analytics Lead for [facility] Fwd Diagnoses Hypotension I95.9 Pericardial effusion I31.3 Pneumonia J18.9 COPD exacerbation J44.1 NSTEMI (non-ST elevated myocardial infarction) I21.4 Obesity (BMI 35.0-39.9 without comorbidity) E66.9 Coronary artery disease due to type 2 diabetes mellitus E11.59; I25.10 Diabetes type 2, uncontrolled E11.65 Glycemic state: with hyperglycemia Congestive heart failure I50.9 Heart failure type: unspecified Heart failure chronicity: unspecified Essential hypertension I10 Fibromyalgia M79.7
[2020-12-29] MEDS: ranolazine (12HR) 500 mg Tablet 1000 MG PO ×2 (08:55→20:44)
[2020-12-29 09:43] LABS: ABG PCO2 29.5 mmHg (35-45); ABG PH Result 7.52 (7.35-7.45); Arterial Blood Gas Hematocrit 45.2 % (37-47); Base Excess ABG 2.1 mmol/L (-2.0-2.0); Blood Gas Allen Test Pos; Blood Gas Operator Identificat GD; Blood Gas Sample Site Radial, left; Blood Gas Sample Type Arterial; Oxygen Device ROOM AIR; PO2 ABG 68.1 mmHg (80.0-100.0)
--- NOTE | 2020-12-29 09:53 | PC.CHAP ---
Pastoral Care Encounter/Spiritual Assessment Type of Contact [] Declined steward/stewardess third class visit [] Patient/Family/Request visit [] Outpatient visit [] Follow-up visit [] Physician referral [] Code/Alert [x] Routine visit [] Staff referral [] Actively dying [] Patient sleeping [] Family support [] [] Out of room [] Palliative care [] [] Receiving care in room [] Pre-surgical visit [] Trauma [] Long length of stay [x] ICU visit [] Other: Relational/Emotional Strength [] Patient feels connected with others/family/visitors/staff [] Distress [] Loneliness/isolation [] Abandonment Spirituality of Patient [] Person of Mary [] Attends Rastafari of their Mary [] Believes in Prayer [] Reads Bible or Confucianism materials [] There are Spiritual issues to be addressed Black Pickler Interventions [x] Prayer [] Active listening [] Non-anxious presence [] Spiritual/emotional support [] Crisis/trauma care [] Spiritual counseling [] Bereavement support [] Provided bereavement packet [] Provided Bible/devotional materials [] Provided toy/stuffed animal, coloring book to patient or family member [] Provided Communion [] Anointing/Rohwer [] Salvation [x] Completed spiritual assessment [] Other: Impact on Illness or Injury [] Angry [] Fearful [] Anxious [] Often cries [] Exhaustion [] Unable to work [] Unable to attend druze [] Unable to walk/stand [] Unable to read [] Unable to drive [] Unable to eat/drink [] Unable to sleep [] Unable to be with family [] Patient intubated [] Other: Summary Time spent with patient
[2020-12-29 11:30] LABS: Glucose Point of Care 373 mg/dL (70-110)
--- NOTE | 2020-12-29 12:35 | P.CONIM_ITS ---
Providers/Reason For Consult Consulting Physican/Specialty*: RAFITA Joyce MD/cardiology Reason for Consult*: Patient with shortness of breath and pericardial effusion Attending Physician: Avila Marie Primary Care Provider: CHARLOTTE Pugh History of Present Illness History of Present Illness Mayra Ascencio is a 55 year old female with a history of coronary disease, status post multiple PCI's, is admitted to hospital with complaints of chest pain. According to the ER notes and also family members, she woke up around 5:00 with chest pain and has been having episodes of chest pain throughout the day. She took a total of 5 sublingual nitro. Since there was no relief of the symptoms, decided to come to the hospital. She had a CT of the chest in the emergency room which revealed a moderate pericardial effusion. She was found to be somewhat tachycardic with relatively low blood pressure. Her CTA did not reveal any pulmonary embolism. She was initially admitted to the cardiac telemetry floor. Her blood pressure started dropping down into the 70s. She was transferred to the ICU for further evaluation management. She was started on Levophed. Levophed dose was titrated up to 20 mics per KG per minute. She also was started on IV fluids. The blood pressure started improving. Currently the blood pressure is in the normal range. She is in the process of being tapered off the Levophed. She also was found to have bilateral opacities in the lung yo suggestive of pneumonia. She is on IV antibiotic. This patient is a poor historian. She has problems with reading and writing. She denies any chest pain. According to her, she mainly came to the hospital for shortness of breath. She did not have any fever or chills. No significant cough. She had the most recent myocardial perfusion imaging in October of last year. She did not have any ischemia at that time. She underwent a cardiac catheterization on 07/04/2020. She was found to have around 60% lesion in the distal circumflex artery, distal to the stented area. She had mild diffuse dis ease in the other vessels. Based on the angiographic findings, it was decided to treat her medically. According the family, she has not had any chest pains since the coronary intervention up until yesterday. She is being followed by Dr. Jerome at the [facility]. Review of Systems Narrative: CONSTITUTIONAL: No fever or chills. [] EYES: No blurring of vision or other visual disturbances lately. ENT: No hoarseness of voice, auditory disturbances or sore throat. CARDIOVASCULAR: As mentioned above. RESPIRATORY: As of breath as mentioned above GASTROINTESTINAL: No hematemesis or melena. GENITOURINARY: No dysuria or hematuria. INTEGUMENTARY: No skin rashes or history of skin cancer. NEURO: No transient ischemic attacks or amaurosis. PSYCHIATRIC: No history of psychosis or major depression. HEMATOLOGIC: No bleeding disorders or significant anemia. ENDOCRINE: No history of polyuria or polydipsia. MUSCULOSKELETAL: No recent joint pain or swelling. ALLERGY/IMMUNOLOGY: As mentioned above. Meds/Allergies Home Medications and Allergies Home Medications Medication Instructions Recorded Confirmed Last Taken Type pantoprazole 40 mg tablet,delayed 40 mg PO DAILY@11/05/19 12/29/20 09/28/20 History release topiramate 50 mg tablet 50 mg PO BID@11/05/19 12/29/20 09/28/20 History atorvastatin 40 mg PO DAILY@06/14/20 12/29/20 09/28/20 History albuterol sulfate 90 mcg/actuation 2 puff INHALATION QID PRN 30 Days 08/26/20 12/29/20 09/28/20 Rx aerosol inhaler #6.7 gm budesonide-formoterol HFA 160 2 puff INHALATION Q12H #10.2 gm 08/26/20 12/29/20 09/28/20 Rx mcg-4.5 mcg/actuation aerosol inhaler Brilinta 90 mg PO BID@09/29/20 12/29/20 09/28/20 History Levemir FlexTouch U-100 Insuln 10 unit SUBCUT DAILY@09/29/20 12/29/20 09/28/20 History aspirin 81 mg PO DAILY@09/29/20 12/29/20 09/28/20 History levetiracetam [Keppra] 500 mg PO BID@09/29/20 12/29/20 09/28/20 History quetiapine [Seroquel] 50 mg PO BEDTIME@09/29/20 12/29/20 09/28/20 History ranolazine 1,000 mg PO BID@08,09/29/20 12/29/20 09/28/20 History acetaminophen 650 mg PO Q6H PRN #30 tab 10/16/20 12/29/20 Unknown Rx cyanocobalamin (vitamin B-12) 500 mcg PO DAILY #30 tab 10/16/20 12/29/20 Unknown Rx [Vitamin B-12] ferrous sulfate 325 mg PO BIDWM #60 tab 10/16/20 12/29/20 Unknown Rx folic acid 1 mg PO DAILY #30 tab 10/16/20 12/29/20 Unknown Rx midodrine 5 mg PO BID #60 tab 10/16/20 12/29/20 Unknown Rx nitroglycerin 0.4 mg sublingual See Rx Instructions .ROUTE 11/06/20 12/29/20 Unknown Rx tablet .COMPLEX #25 tab Walker #1 ea 11/18/20 12/29/20 Unknown Rx sulfamethoxazole 400 1 tab PO DAILY 90 Days #90 tab 12/16/20 12/29/20 Unknown Rx mg-trimethoprim 80 mg tablet cyclobenzaprine 10 mg tablet 10 mg PO TID PRN 30 Days #90 tab 12/25/20 12/29/20 Unknown Rx duloxetine 60 mg capsule,delayed 60 mg PO DAILY@08 30 Days #30 cap 12/25/20 12/29/20 Unknown Rx release sprinkle hydromorphone 2 mg tablet 2 mg PO TID PRN 30 Days #21 tab 12/25/20 12/29/20 Unknown Rx pregabalin 150 mg capsule 150 mg PO BID 30 Days #60 cap 12/25/20 12/29/20 Unknown Rx tramadol 50 mg tablet 50 mg .ROUTE .5 times a day PRN 30 12/25/20 12/29/20 Unknown Rx Days #150 tab furosemide [Lasix] 40 mg PO DAILY 12/29/20 12/29/20 Unknown History isosorbide mononitrate 60 mg PO BID 12/29/20 12/29/20 Unknown History potassium chloride 20 meq PO DAILY 12/29/20 12/29/20 Unknown History Allergies Allergy/AdvReac Type Severity Reaction Status Date / Time adhesive Allergy Unknown Verified 12/28/20 18:18 clindamycin Allergy ADR-Itching Verified 12/28/20 18:18 codeine Allergy Unknown Verified 12/28/20 18:18 hydrocodone Allergy Unknown Verified 12/28/20 18:18 latex Allergy ALGY-Swell Verified 12/28/20 18:18 Lip/Tongue/Throat naproxen [From Naprosyn] Allergy Unknown Verified 12/28/20 18:18 nut - unspecified Allergy ALGY-Anaphy Verified 12/28/20 18:18 laxis oxycodone [From Roxicodone] Allergy ADR-Muscle Verified 12/28/20 18:18 Pain Penicillins Allergy Unknown Verified 12/28/20 18:18 sulfamethoxazole Allergy ADR-Migrain Verified 12/28/20 18:18 [From Bactrim] e trimethoprim [From Bactrim] Allergy ADR-Migrain Verified 12/28/20 18:18 e Current Medications Current Medications Generic Name Dose Route Start Last Admin Trade Name Freq PRN Reason Stop Dose Admin Albuterol/Ipratropium 3 ml 12/29/20 08:00 12/29/20 08:19 Ipratropium-Albuterol 3 Ml Neb INHALATION 3 ml Q6H YUSUF Administration Aspirin 81 mg 12/29/20 08:00 12/29/20 07:59 Aspirin 81 Mg Chew Tablet PO 81 mg DAILY@08 YUSUF Administration Cyanocobalamin 500 mcg 12/29/20 09:00 12/29/20 08:13 Cyanocobalamin 1,000 Mcg Tablet PO 500 mcg DAILY YUSUF Administration Cyclobenzaprine HCl 10 mg 12/29/20 00:05 12/29/20 07:58 Cyclobenzaprine 10 Mg Tablet PO 10 mg TID PRN Administration muscle spasm Duloxetine HCl 60 mg 12/29/20 08:00 12/29/20 07:58 Duloxetine 60 Mg Capsule PO 60 mg DAILY@08 YUSUF Administration Enoxaparin Sodium 40 mg 12/29/20 00:05 12/29/20 00:39 Enoxaparin 40 Mg/0.4 Ml Syringe SUBCUT 40 mg Q24H YUSUF Administration Ferrous Sulfate 325 mg 12/29/20 08:00 12/29/20 07:59 Ferrous Sulfate Ec 325 Mg Tablet PO 325 mg BIDWM YUSUF Administration Folic Acid 1 mg 12/29/20 09:00 12/29/20 08:13 Folic Acid 1 Mg Tablet PO 1 mg DAILY YUSUF Administration Norepinephrine Bitartrate 4 mg 254 mls @ 0 mls/hr 12/29/20 00:45 12/29/20 10:11 / Dextrose IV 1 mcg/min .Q0M YUSUF 3.8 mls/hr Titration Protocol Per Protocol Imipenem/Cilastatin Sodium 500 100 mls @ 200 mls/hr 12/29/20 03:00 12/29/20 08:29 mg/ Sodium Chloride IV Infused Q6H YUSUF Infusion Protocol Vancomycin/PEG/NADA/Lysine/Water 1,500 mg in 300 mls @ 200 mls/hr 12/29/20 02:00 12/29/20 04:15 Vancocin IV Infused Q12H YUSUF Infusion Insulin Aspart 0 unit 12/29/20 08:00 12/29/20 08:00 Insulin Aspart 100 Unit/1 Ml SUBCUT 14 unit WM&BEDTIME YUSUF Administration Protocol Levetiracetam 1,500 mg 12/29/20 08:00 12/29/20 07:58 Levetiracetam 500 Mg Tablet PO 1,500 mg BID@ YUSUF Administration Methylprednisolone Sodium Succinate 40 mg 12/29/20 00:05 12/29/20 08:00 Methylprednisolone Sod Succ 40 Mg/Ml Inj IVP 40 mg Q8H YUSUF Administration Midodrine 5 mg 12/29/20 09:00 12/29/20 08:13 Midodrine 5 Mg Tablet PO 5 mg BID YUSUF Administration Pantoprazole Sodium 40 mg 12/29/20 08:00 12/29/20 07:[address] 40 Mg Tablet PO 40 mg DAILY@08 YUSUF Administration Pregabalin 150 mg 12/29/20 09:00 12/29/20 07:59 Pregabalin 150 Mg Capsule PO 150 mg BID YUSUF Administration Ranolazine 1,000 mg 12/29/20 08:00 12/29/20 08:55 Ranolazine (12hr) 500 Mg Tablet PO 1,000 mg BID@ YUSUF Administration Fluticasone/Salmeterol 1 puff 12/29/20 08:00 12/29/20 08:18 Fluticasone-Salmeterol 500-50 Diskus INHALATION 1 puff Q12H YUSUF Administration Ticagrelor 90 mg 12/29/20 08:00 12/29/20 07:58 Ticagrelor 90 Mg Tablet PO 90 mg BID@ YUSUF Administration Topiramate 50 mg 12/29/20 08:00 12/29/20 07:59 Topiramate 25 Mg Tablet PO 50 mg BID@ YUSUF Administration PFSH Acute PFSH: Medical History Atherosclerotic heart disease of [place] coronary artery with unspecified angina pectoris Chest pain, midsternal Chronic congestive heart failure Chronic left-sided low back pain Chronic obstructive pulmonary disease, unspecified Chronic pain of left knee Congestive heart failure Current every day smoker CVA (cerebral vascular accident) Dyslipidemia Encounter for long-term opiate analgesic use Essential hypertension Fibromyalgia Fibromyalgia, primary Hyperlipidemia, mixed Insomnia Intervertebral disc disorder of lumbar region with myelopathy Low back pain radiating to both legs Lumbosacral spondylosis without myelopathy NSTEMI (non-ST elevated myocardial infarction) Thought to be secondary to plaque rupture. Angiogram July 04 no flow-limiting lesions, or restenosis of previous stent from April 2020 Opioid contract exists Osteoarthritis of spine at multiple levels Type 2 diabetes mellitus with diabetic autonomic (poly)neuropathy Vitamin D deficiency Surgical History History of arthroscopic surgery of elbow BILATERAL History of coronary angiogram Angiogram April 2020 with 90% circumflex lesion, drug-eluting stent placed by Dr. Jerome S/p bilateral carpal tunnel release S/P hysterectomy S/P knee surgery RIGHT S/P lumbar fusion DR. Shreya ZAYAS IN [place], [place] L4-L5, L5-S1 Status post lumbar laminectomy Family History Other CAD (coronary artery disease) Cancer Diabetes Social History Smoking and tobacco status: current every day smoker cigarettes [ Other cigarette details: PER PATIENT REPORT ] Second hand smoke exposure: Yes Smoking risk assessment/counseling performed?: Yes Alcohol intake: former Desire information about alcohol rehabilitation?: No Counseling given: No Desire information about substance/drug rehabilitation?: No Counseling given: No Caregiver/support person: No Lives independently: Yes Household members: family and other Details: son Housing: Manufactured/Mobile home Marital status: Unknown Marital status details: She and son state she is not service: No Current occupational status: unemployed Pets and animals: Yes History of recent travel: No Current gender identity: Female Vitals/I&O/Wt Last Vital Signs Temp 99 F 12/29/20 12:00 Pulse 105 H 12/29/20 12:00 Resp 19 H 12/29/20 12:00 BP 103/79 12/29/20 12:00 Pulse Ox 92 12/29/20 12:00 12/28/20 12/29/20 12/29/20 22:59 06:59 14:59 Intake Total 2170.657 / 2170.657 671.115 / 671.115 Output Total 4300 / 4300 1800 / 1800 Balance -2129.343 / -2129.343 -1128.885 / -1128.885 Weight last 48 hrs Weight 240 lb 11.2 oz Weight 215 lb Physical Exam Narrative: EXAM NARRATIVE: GENERAL: Patient is drowsy and answers to questions with yes or no HEENT: Mild pallor, icterus or lymphadenopathy. The pupils are symmetrical. Oral cavity: There are no mucous membrane lesions. Funduscopic examination: The disk margins appear to be sharp with no exudates or hemorrhages. NECK: Trachea appears to be central. No masses noted. No JVD or thyromegaly appreciated. No carotid bruit. RESPIRATORY: Chest is symmetrical. No intercostals muscle retraction or any accessory muscle activation. There is no chest wall tenderness. Breath sounds are heard bilaterally. No rales or rhonchi heard. No evidence of any consolidation. BREASTS: Deferred. HEART: PMI could not be palpated. No other palpable precordial events. S1 and S2 are normal. No S3 or S4 heard. No pericardial rub or any click heard. ABDOMEN: No vessel pulsations or distention. No tenderness. No organomegaly appreciated. No abdominal bruit. Bowel sounds are normally heard. : Deferred. RECTAL: Deferred. LYMPHATIC: No lymphadenopathy noted in the neck or groin. EXTREMITIES: Trace to 1+ edema with no cyanosis. Peripheral pulses are palpable but weakbilaterally MUSCULOSKELETAL: No acute joint deformities or swelling SKIN: There are no significant scars or skin rash noted. NEUROPSYCHIATRIC: The patient is alert and oriented x3. Appears to be in a good mood. The higher functions are grossly within normal limits. No tremors or rigidity noted. Urinary Catheter Management^: [place]: Cath Placed During This Visit: yes Reason for Continuing Indwelling Catheter: Accurate Measurement of Urinary Output in Critically Ill Patients Urinary Catheter Date of Insertion: 12/29/20 Urinary Catheter Time of Insertion: 03:40 Data Micro: Micro: Microbiology 12/29/20 07:25 Blood Culture - Pr eliminary Blood SPECIMEN [facility] 12/29/20 07:30 Blood Culture - Pr eliminary Blood SPECIMEN [facility] Imaging^: Echo: My impression: Done on 12/29/2020 Normal left ventricular size and systolic function, EF 70 %. No regional wall motion abnormalities. Small to moderate pericardial effusion. No echocardiographic evidence of tamponade Thickened noncoronary cusp of the aortic valve. Minimally thickened mitral valve. There are no intracardiac masses. No previous study is available for comparison. CTA Chest: Radiologist's impression: CT of the chest on 12/28/2020 1. No evidence for pulmonary embolus. 2. Diffuse interstitial and ground-glass opacities could represent atypical pneumonia, hypersensitivity pneumonitis, or pulmonary edema. 3. Moderate pericardial effusion, new since the prior study. 4. Prominent mediastinal and hilar lymph nodes are most likely reactive or inflammatory. 5. Circumferential wall thickening and narrowing in the proximal left common carotid artery and innominate artery. This could represent plaque, intimal hyperplasia or arteritis. This can be further evaluated with a CTA neck. EKG^: EKG 1: My Interpretation: Sinus rhythm with a rate of 99 bpm. Possible old inferior wall [place]. No acute ST-T changes. Normal NH and QRS duration. A&P Assessment and plan (1) Hypotension: It is unexplained. Most likely related to sepsis. Her LV ejection fraction is normal by echocardiogram. The pericardial effusion does not appear to be large enough to cause hemodynamic compromise. Currently the patient is being weaned off the Levophed. May continue other supportive measures. Status: Acute Qualifiers: Hypotension type: unspecified hypotension type Qualified Code(s): I95.9 - Hypotension, unspecified (2) Atypical chest pain: Recurrent episodes of chest pain, may assist unstable angina. The EKG is unremarkable. Nonspecific elevation of the troponin T, most likely related to type II [place]. May continue on the current medications Status: Acute (3) Pericardial effusion: Most likely from the infection. There is no clinical or echocardiographic evidence of hemodynamic compromise from the effusion. Continue managing the primary cause Status: Acute (4) Atherosclerotic heart disease of [place] coronary artery with other forms of angina pectoris: Patient may benefit from a myocardial perfusion imaging once the infection is properly treated. In the meanwhile, she may continue on the current medications. Status: Acute (5) Pneumonia: Management as per the primary. Status: Acute Qualifiers: Laterality: bilateral Lung location: unspecified part of lung Pneumonia type: due to unspecified organism Qualified Code(s): J18.9 - Pneumonia, unspecified organism Additional A&P Information Based on the patient's clinical progress and the results of the above, further recommendations will be made. Thank you for the opportunity to evaluate this patient and make these recommendations Consult Attestations Medical Necessity Statement: Patient requires continued hospital stay for close monitoring and further management Coding Level of Care Code Acute Object Oriented Developer for g Fwd History Detailed Exam Detailed Medical Decision Making High Complexity Diagnoses Hypotension I95.9 Hypotension type: unspecified hypotension type Atypical chest pain R07.89 Pericardial effusion I31.3 Atherosclerotic heart disease of [place] coronary artery with other forms of angina pectoris I25.118 Pneumonia J18.9 Laterality: bilateral Lung location: unspecified part of lung Pneumonia type: due to unspecified organism Time Spent (min) 65
[2020-12-29] MEDS: vancomycin 1,500 MG/300 ML PIGGYBACK 250 MG IV (13:00)
--- NOTE | 2020-12-29 13:53 | PC.OT ---
OT note: From chart review pt's potassium is over 5.0. Will hold at this time and attempt again as able.
[2020-12-29 17:10] LABS: Glucose Point of Care 327 mg/dL (70-110)
--- NOTE | 2020-12-29 17:27 | CTR_ITS ---
PROCEDURE INFORMATION: Exam: CT Left Lower Extremity Without Contrast, Knee Exam date and time: 12/29/2020 5:33 PM Age: 55 years old Clinical indication: Pain; Knee; Left; Prior surgery; Additional info: HX prosthesis infection, removal, abx spacer. Pain. Sepsis. TECHNIQUE: Imaging protocol: CT of the Left lower extremity without contrast was performed. Exam focused on the knee. Radiation optimization: All CT scans at this facility use at least one of these dose optimization techniques: automated exposure control; mA and/or kV adjustment per patient size (includes targeted exams where dose is matched to clinical indication); or iterative reconstruction. COMPARISON: 1. MRI Knee w/o LEFT* [id number] 08/14/2018 4:08 PM 2. CR XR knee LT 3V* [id number] 09/29/2020 2:59:23 PM RADIATION DOSE METRICS: Total DLP (mGy-cm): 686.71 FINDINGS: Bones/joints: Removal of the left knee tibial prosthetic component compared with 09/29/2020. The left femoral arthroplasty component remains in place. No acute fractures. No loosening of the femoral prosthesis identified. Bones are mildly demineralized diffusely. No focal lytic, aggressive bone lesion apparent. No definite joint effusion. No acute periprosthetic fracture. Soft tissues: Nonspecific amorphous soft tissue thickening anterior to the distal femur superior to the patella of uncertain significance. Diffuse muscular atrophy. CT/CT knee LT wo con* [id number] IMPRESSION: 1. No focal aggressive bone lesions around the left knee joint are identified. 2. Nonspecific suprapatellar soft tissue thickening changes are noted. 3. Removal of the tibial prosthetic component with placement of spacer device. Radiation Dose CTDIVOL = (mGy): DLP = 686.71 (mGy-cm)
[2020-12-29] MEDS: acetaminophen 325 mg Tablet 650 MG PO (18:33)
--- NOTE | 2020-12-29 18:38 | PC.NURSE ---
Patient was taken to CT at 1830. All vitals WNL
[2020-12-29] MEDS: albuterol 8 gm MDI 2 PUFF INHALATION (20:14)
[2020-12-29] MEDS: quetiapine 25 mg Tablet 50 MG PO (20:44)
[2020-12-29] MEDS: atorvastatin 40 mg Tablet PO (20:44)
[2020-12-29 21:21] LABS: Glucose Point of Care 356 mg/dL (70-110)
[2020-12-30] VITALS (16 sets, daily range): BP systolic 102–133; BP diastolic 65–86; PULSE 81–103; RESP 15–25; TEMP 36.5–37.2; O2SAT 87–99; BMI 38.8
[2020-12-30] MEDS: enoxaparin 40 mg/0.4 mL Syringe SUBCUT ×2 (00:53→23:38)
[2020-12-30] MEDS: vancomycin 1,500 MG/300 ML PIGGYBACK 200 MG IV ×2 (01:09→14:46)
[2020-12-30 04:05] LABS: Basophils % 0.1 %; Lymphocytes # 1.5 10^3/uL (0.8-4.8); Lymphocytes % 6.4 %; Mean Corpuscular HGB Conc 32.4 g/dL (30.0-36.0); Mean Corpuscular Hemoglobin 26.8 pg (28.0-34.0); Mean Corpuscular Volume 82.9 fL (81-99); Mean Platelet Volume 9.8 fL (7.4-10.4); Monocytes # 1.7 10^3/uL (0.2-0.9); Monocytes % 7.3 %; Neutrophils # 19.47 10^3/uL (1.8-7.7); Neutrophils % 85.2 %; Nucleated Red Blood Cells % 0 %; Platelet Count 438 10^3/cmm (130-400); Red Cell Distribution Width 14.7 % (12.1-15.1); White Blood Count 22.9 10^3/uL (4.0-10.0)
[2020-12-30 04:32] LABS: Alanine Aminotransferase 9 U/L (0-33); Albumin Level 3.1 g/dL (3.5-5.2); Alkaline Phosphatase 81 IU/L (35-105); Anion Gap 14.8 (5-19); Aspartate Amino Transferase 8 U/L (0-32); Blood Urea Nitrogen 13 mg/dL (6-20); C Reactive Protein 183.8 mg/L (0.0-4.9); Calcium 9.2 mg/dL (8.5-10.5); Carbon Dioxide 24 mmol/L (22-29); Chloride 100 mmol/L (98-107); Globulin 3.3 g/dL (1.3-4.6); Glomerular Filtration Rate 104.6 mL/min (90-130); Glucose 305 mg/dL (65-115); Magnesium 1.6 mg/dL (1.7-2.3); Osmolality Calculated 292 mOsm/kg (285-295); Phosphorus 2.4 mg/dL (2.5-4.5); Potassium 3.8 mmol/L (3.5-5.1); Sodium 135 mmol/L (136-145); Total Bilirubin 0.2 mg/dL (0.15-1.2); Total Protein 6.4 g/dL (6.6-8.7)
[2020-12-30 06:02] LABS: NT Pro B Type Natriuretic Pept 1434 pg/mL (0-125); Procalcitonin 0.16 ng/mL (0-0.5)
[2020-12-30] MEDS: ranolazine (12HR) 500 mg Tablet 1000 MG PO ×2 (07:47→21:16)
[2020-12-30] MEDS: pantoprazole DR 40 mg Tablet PO (07:47)
[2020-12-30] MEDS: topiramate 25 mg Tablet 50 MG PO ×2 (07:47→21:17)
[2020-12-30] MEDS: ferrous sulfate EC 325 mg Tablet PO ×2 (07:47→18:28)
[2020-12-30] MEDS: duloxetine 60 mg Capsule PO (07:47)
[2020-12-30] MEDS: ticagrelor 90 mg Tablet PO ×2 (07:48→21:16)
[2020-12-30] MEDS: levETIRAcetam 500 mg Tablet 1500 MG PO ×2 (07:48→21:17)
[2020-12-30] MEDS: aspirin 81 mg Chew Tablet PO (07:48)
[2020-12-30] MEDS: albuterol 8 gm MDI 2 PUFF INHALATION (07:52)
[2020-12-30] MEDS: midodrine 5 mg TABLET PO ×2 (08:08→18:28)
[2020-12-30] MEDS: pregabalin 150 mg Capsule PO ×2 (08:08→18:28)
[2020-12-30] MEDS: cyanocobalamin 1,000 mcg Tablet 500 MCG PO (08:08)
[2020-12-30] MEDS: folic acid 1 mg Tablet PO (08:08)
[2020-12-30] MEDS: magnesium sulfate premix 2 GM/50 ML PIGGYBACK IV (08:22)
[2020-12-30 08:37] LABS: Glucose Point of Care 360 mg/dL (70-110)
--- NOTE | 2020-12-30 09:07 | PC.CHAP ---
Pastoral Care Encounter/Spiritual Assessment Type of Contact [] Declined us marketing director visit [] Patient/Family/Request visit [] Outpatient visit [] Follow-up visit [] Physician referral [] Code/Alert [x] Routine visit [] Staff referral [] Actively dying [] Patient sleeping [] Family support [] [] Out of room [] Palliative care [] [x] Receiving care in room [] Pre-surgical visit [] Trauma [] Long length of stay [x] ICU visit [] Other: Relational/Emotional Strength [] Patient feels connected with others/family/visitors/staff [] Distress [] Loneliness/isolation [] Abandonment Spirituality of Patient [] Person of Mary [] Attends Yazidism of their Mary [] Believes in Prayer [] Reads Bible or Sikhism materials [] There are Spiritual issues to be addressed Beef Pluck Trimmer Interventions [x] Prayer [] Active listening [] Non-anxious presence [] Spiritual/emotional support [] Crisis/trauma care [] Spiritual counseling [] Bereavement support [] Provided bereavement packet [] Provided Bible/devotional materials [] Provided toy/stuffed animal, coloring book to patient or family member [] Provided Communion [] Anointing/[place] [] Salvation [x] Completed spiritual assessment [] Other: Impact on Illness or Injury [] Angry [] Fearful [] Anxious [] Often cries [] Exhaustion [] Unable to work [] Unable to attend religious [] Unable to walk/stand [] Unable to read [] Unable to drive [] Unable to eat/drink [] Unable to sleep [] Unable to be with family [] Patient intubated [] Other: Summary Time spent with patient
[2020-12-30 10:56] LABS: Glucose Point of Care 393 mg/dL (70-110)
--- NOTE | 2020-12-30 10:59 | PC.NURSE ---
Patient has sat up in bed this AM and ate breakfast and took morning pills. Pain in back and legs at an 8/10. No pain medications requested at this time. Patient requested to rest in room with lights off.
[2020-12-30] MEDS: acetaminophen 325 mg Tablet 650 MG PO (12:55)
--- NOTE | 2020-12-30 13:45 | PM.PN ---
Subjective Subjective: Interval history: Today she is overall feeling better. She is still having chest congestion. Coughing. Bothered by pain in multiple areas including her left knee, as well as chronic pain in upper back. Vitals/I&O/Wt Last Vital Signs Temp 99.0 F 12/30/20 12:00 Pulse 98 12/30/20 12:00 Resp 20 H 12/30/20 12:00 BP 130/86 12/30/20 12:00 Pulse Ox 96 12/30/20 12:00 12/29/20 12/30/20 12/30/20 22:59 06:59 14:59 Intake Total 770 / 2341.115 750 / 3091.115 390 / 390 Output Total 650 / 3200 800 / 4000 500 / 500 Balance 120 / -858.885 -50 / -908.885 -110 / -110 Weight last 48 hrs Weight 109.18 kg Weight 97.522 kg Physical Exam Const: COMMON NORMALS: no acute distress, patient oriented x3 and alert GENERAL APPEARANCE: cooperative ORIENTATION/CONSCIOUSNESS: Yes awake HENMT: COMMON NORMALS: oropharynx normal Neck/C-Spine: COMMON NORMALS: no JVD OTHER: Right IJ CVC. Resp: COMMON NORMALS: normal respiratory effort AUSCULTATION: diminished lung sounds Cardio: COMMON NORMALS: no JVD, S1 normal heart sound present, S2 normal heart sound present and No murmurs present (Cardio) RATE: tachycardic RHYTHM: abnormal rhythm HEART SOUNDS: S1 normal heart sound present and S2 normal heart sound present GI: COMMON NORMALS: Normal to inspection, nondistended, normoactive bowel sounds present, Soft to palpation and non-tender PALPATION: Yes Soft to palpation Extremity: COMMON NORMALS: no pedal edema OTHER: L knee with chronic swelling. Well healed midline incision. No drainage. Knee is not erythematous. Similar temperature as the R. Neuro: COMMON NORMALS: patient oriented x3 and moves all extremities SENSORIUM/ORIENTATION: Yes alert Skin: COMMON NORMALS: no rashes or lesions noted GENERAL SKIN EXAM: no rashes or lesions noted OTHER: Small pressure ulcer at the sacrum to the left of midline, about 4 cm long lesion, about 1-2 cm wide. Softened eschar on top. No bleeding or drainage. Minimal ring of erythema. Healing pressure ulcer on the plantar/posterior aspect of the right heel, about 2 cm in size, no drainage. No surrounding erythema. Urinary Catheter Management^: [place]: Cath Placed During This Visit: yes Reason for Continuing Indwelling Catheter: Accurate Measurement of Urinary Output in Critically Ill Patients Urinary Catheter Date of Insertion: 12/29/20 Urinary Catheter Time of Insertion: 03:40 Data : 12/30/20 03:38 12/30/20 03:38 Micro: Microbiology 12/29/20 07:30 Blood Culture - Preliminary Blood NEGATIVE TO DATE 12/29/20 07:25 Blood Culture - Preliminary Blood NEGATIVE TO DATE 12/29/20 03:40 Urine Culture - Preliminary Urine Catheterized A&P Assessment and plan (1) Hypotension: Resolved. She weaned off pressor. This morning even episode of hypertension. Will resume Imdur at lower dose. Monitor. May transfer out of ICU if able to accommodate isolation. Look cytosis worse today, but sepsis overall appears to be improving. Leukocytosis partially may be also secondary to steroid. Appreciate also orthopedic assessment, her knee although troubling her with pain chronically, does not appear to be the source of sepsis. Wean down steroid. Apreciate additional cardiology assessment and recommendations. Pericardial effusion mild to moderate, not likely contributing to her hypotension. Status: Acute (2) Pericardial effusion: Small to moderate effusion per TTE. Cardiology considering this related to her primary problem with pulmonary infection. ESR noted elevated at 52. This does not appear, however, chronic going as far back as 2019. Autoimmune antibodies sent and pending. Status: Acute (3) Pneumonia: With concern for sepsis present on admission, septic shock. Continue Primaxin, vancomycin. Follow-up cultures. With groundglass opacities, elevated D-dimer, troponin abnormality, septic shock we will go ahead and confirm COVID-19 PCR. -CT angiogram did show diffuse interstitial and groundglass opacities -Has shortness of breath, chronic cough is a smoker, has COPD Status: Acute Qualifiers: Laterality: bilateral Lung location: unspecified part of lung Pneumonia type: due to unspecified organism Qualified Code(s): J18.9 - Pneumonia, unspecified organism (4) COPD exacerbation: Continue antibiotics, steroids, breathing treatments. Follow-up sputum cultures. Chronically on 2 L oxygen by nasal cannula. Status: Acute (5) NSTEMI (non-ST elevated myocardial infarction): Currently she does not have any chest pain. Troponin was without a peak, with gradual decline. Consideration is that this or other was secondary to demand ischemia with septic shock. Follow-up echocardiography, cardiology recommendations. Her presenting complaint was chest pain, substernal, and shortness of breath -Continue aspirin, statin, Brilinta Status: Acute (6) Obesity (BMI 35.0-39.9 without comorbidity): Status: Acute (7) Coronary artery disease due to type 2 diabetes mellitus: Status: Acute (8) Diabetes type 2, uncontrolled: Continue low-dose sliding scale Status: Acute Qualifiers: Glycemic state: with hyperglycemia Qualified Code(s): E11.65 - Type 2 diabetes mellitus with hyperglycemia (9) Congestive heart failure: Monitor I&O, volume status, hemodynamics. Additional diuresis depending on condition. Status: Chronic (10) Essential hypertension: Status: Chronic (11) Fibromyalgia: Patient takes a lot of opiate medications, will hold for now Status: Chronic Attestations Medical Necessity Statement*: Continue admission for assessment management of pneumonia, improving sepsis, pericardial effusion. Coding Level of Care Code Acute Software Engineer Developer for Chg Fwd Exam Comprehensive Diagnoses Hypotension I95.9 Pericardial effusion I31.3 Pneumonia J18.9 Laterality: bilateral Lung location: unspecified part of lung Pneumonia type: due to unspecified organism COPD exacerbation J44.1 NSTEMI (non-ST elevated myocardial infarction) I21.4 Obesity (BMI 35.0-39.9 without comorbidity) E66.9 Coronary artery disease due to type 2 diabetes mellitus E11.59; I25.10 Diabetes type 2, uncontrolled E11.65 Glycemic state: with hyperglycemia Congestive heart failure I50.9 Essential hypertension I10 Fibromyalgia M79.7
[2020-12-30 14:21] LABS: Vancomycin Trough 10.9 ug/mL (10-15)
--- NOTE | 2020-12-30 16:13 | PC.NURSE ---
Patient was transferred to [facility] at 1600 with all belongings. Vancomycin was still infusing at 200 mls per hour at the time of transfer. [facility] was [facility] floor.
[2020-12-30 16:17] LABS: Coronavirus Test Green County Not Detected
--- NOTE | 2020-12-30 16:20 | PC.OT ---
OT note: From chart review will await COVID test results then do OT eval.
[2020-12-30 16:41] LABS: Glucose Point of Care 408 mg/dL (70-110)
[2020-12-30] MEDS: isosorbide mononitrate ER 30 mg Tablet PO (18:33)
--- NOTE | 2020-12-30 18:47 | P.PN_ITS ---
Subjective Subjective: Interval history: Patient known to me for elective left total knee on 09/15/2020 complicated by staph infection with removal of components on 09/30/2020. Treated with 6 weeks IV antibiotics. Now admitted with presumed sepsis and pneumonia. States knee is doing the best it has for some time. She has regained ambulatory status. Pain continues to improve. Vitals/I&O/Wt Last Vital Signs Temp 97.7 F 12/30/20 16:00 Pulse 81 12/30/20 16:00 Resp 17 12/30/20 16:00 BP 133/71 12/30/20 16:00 Pulse Ox 99 12/30/20 16:00 12/30/20 12/30/20 12/30/20 06:59 14:59 22:59 Intake Total 750 / 3091.115 390 / 390 400 / 790 Output Total 800 / 4000 500 / 500 Balance -50 / -908.885 -110 / -110 400 / 290 Weight last 48 hrs Weight 233 lb 4.8 oz Weight 240 lb 11.2 oz Physical Exam Narrative: EXAM NARRATIVE: Left knee with the least swelling I have seen since before initial knee replacement. Soft tissue envolope supple. Really no erythema. Motion 20-100 degrees Urinary Catheter Management^: [place]: Cath Placed During This Visit: yes Reason for Continuing Indwelling Catheter: Accurate Measurement of Urinary Output in Critically Ill Patients Urinary Catheter Date of Insertion: 12/29/20 Urinary Catheter Time of Insertion: 03:40 Data : 12/30/20 03:38 12/30/20 03:38 Micro: Microbiology 12/29/20 07:30 Blood Culture - Preliminary Blood NEGATIVE TO DATE 12/29/20 07:25 Blood Culture - Preliminary Blood NEGATIVE TO DATE 12/29/20 03:40 Urine Culture - Preliminary Urine Catheterized A&P Assessment and plan (1) Status post left knee replacement: Mayra's knee looks very promising. She has made big improvements since I saw her last. I do not think there is clinical evidence to sggest current knee infection. Suggest continued treatment of pneumonia as source of sepsis. Status: Acute Attestations Medical Necessity Statement*: per medicine Coding Level of Care Code Acute Rating Examiner for Nahed Alcazar Diagnoses Status post left knee replacement Z96.652
[2020-12-30 20:49] LABS: Glucose Point of Care 328 mg/dL (70-110)
[2020-12-30] MEDS: atorvastatin 40 mg Tablet PO (21:16)
[2020-12-30] MEDS: quetiapine 25 mg Tablet 50 MG PO (21:17)
[2020-12-30] MEDS: ipratropium-albuterol 3 mL Neb INHALATION (21:21)
--- NOTE | 2020-12-30 22:49 | P.PN_ITS ---
Subjective Subjective: Interval history: Stable doing fine denies any complaint denies chest pain Vitals/I&O/Wt Last Vital Signs Temp 98.1 F 12/30/20 19:07 Pulse 92 12/30/20 21:21 Resp 17 12/30/20 21:21 BP 132/85 12/30/20 19:07 Pulse Ox 97 12/30/20 21:21 12/30/20 12/30/20 12/30/20 06:59 14:59 22:59 Intake Total 750 / 3091.115 390 / 390 500 / 890 Output Total 800 / 4000 500 / 500 650 / 1150 Balance -50 / -908.885 -110 / -110 -150 / -260 Weight last 48 hrs Weight 233 lb 4.8 oz Weight 240 lb 11.2 oz Physical Exam Narrative: EXAM NARRATIVE: GENERAL: Patient is alert, awake and oriented x3. NECK: No jugular vein distension. HEENT: No cyanosis. No icterus. No pallor. HEART: Regular S1 and S2. No murmur, rub or gallop. LUNGS: Clear to auscultate bilaterally. ABDOMEN: Soft, nontender and nondistended. Positive bowel sounds. No guarding, rebound or tenderness. CENTRAL NERVOUS SYSTEM: Grossly nonfocal. EXTREMITIES: Lower extremities without edema bilaterally. Urinary Catheter Management^: [place]: Cath Placed During This Visit: yes Reason for Continuing Indwelling Catheter: Accurate Measurement of Urinary Output in Critically Ill Patients Urinary Catheter Date of Insertion: 12/29/20 Urinary Catheter Time of Insertion: 03:40 Data : 12/31/20 05:29 12/31/20 05:29 Micro: Microbiology 12/29/20 07:30 Blood Culture - Preliminary Blood NEGATIVE TO DATE 12/29/20 07:25 Blood Culture - Preliminary Blood NEGATIVE TO DATE 12/29/20 03:40 Urine Culture - Preliminary Urine Catheterized A&P Assessment and plan (1) Hypotension: Improved. Status: Resolved (2) Atypical chest pain: Denies any more chest pain Status: Resolved (3) Pericardial effusion: Stable clinically. Continue to monitor repeat echocardiogram in 2 weeks Status: Acute (4) Atherosclerotic heart disease of [place] coronary artery with other forms of angina pectoris: Stable. Continue current regimen continue to monitor as an outpatient (5) Pneumonia: Continue treatment as per medicine Status: Acute Qualifiers: Laterality: bilateral Lung location: unspecified part of lung Pneumonia type: due to unspecified organism Qualified Code(s): J18.9 - Pneumonia, unspecified organism Additional A&P Information Based on the patient's clinical progress and the results of the above, further recommendations will be made. Thank you for the opportunity to evaluate this patient and make these recommendations Attestations Medical Necessity Statement*: As per medicine Coding Level of Care Code Established Pt Acute Bag Checker for Chg Fwd Patient Type Established History Expanded Problem Focused Exam Expanded Problem Focused Medical Decision Making Moderate Complexity Diagnoses Hypotension I95.9 Atypical chest pain R07.89 Pericardial effusion I31.3 Atherosclerotic heart disease of [place] coronary artery with other forms of angina pectoris I25.118 Pneumonia J18.9 Laterality: bilateral Lung location: unspecified part of lung Pneumonia type: due to unspecified organism
[2020-12-31] VITALS (14 sets, daily range): BP systolic 116–154; BP diastolic 67–85; PULSE 71–97; RESP 16–20; TEMP 36.4–36.7; O2SAT 90–98
[2020-12-31] MEDS: vancomycin 1,500 MG/300 ML PIGGYBACK 200 MG IV ×2 (02:15→13:23)
[2020-12-31] MEDS: ipratropium-albuterol 3 mL Neb INHALATION ×3 (02:42→15:56)
[2020-12-31 05:46] LABS: Basophils % 0.1 %; Eosinophils % 0.2 %; Hematocrit 32.4 % (37.0-47.0); Hemoglobin 10.3 g/dL (11.5-15.3); Lymphocytes # 3.7 10^3/uL (0.8-4.8); Lymphocytes % 21.5 %; Mean Corpuscular HGB Conc 31.8 g/dL (30.0-36.0); Mean Corpuscular Hemoglobin 27.2 pg (28.0-34.0); Mean Corpuscular Volume 85.7 fL (81-99); Mean Platelet Volume 9.7 fL (7.4-10.4); Monocytes # 1.3 10^3/uL (0.2-0.9); Monocytes % 7.4 %; Neutrophils # 11.97 10^3/uL (1.8-7.7); Neutrophils % 69.6 %; Nucleated Red Blood Cells % 0 %; Platelet Count 428 10^3/cmm (130-400); Red Blood Count 3.78 10^6/uL (4.1-5.3); Red Cell Distribution Width 14.8 % (12.1-15.1); White Blood Count 17.2 10^3/uL (4.0-10.0)
[2020-12-31 06:15] LABS: Alanine Aminotransferase 8 U/L (0-33); Albumin Level 2.8 g/dL (3.5-5.2); Alkaline Phosphatase 70 IU/L (35-105); Anion Gap 14.9 (5-19); Aspartate Amino Transferase 6 U/L (0-32); Blood Urea Nitrogen 19 mg/dL (6-20); C Reactive Protein 50.5 mg/L (0.0-4.9); Calcium 9.4 mg/dL (8.5-10.5); Carbon Dioxide 22 mmol/L (22-29); Chloride 104 mmol/L (98-107); Globulin 3.2 g/dL (1.3-4.6); Glomerular Filtration Rate 104.6 mL/min (90-130); Glucose 252 mg/dL (65-115); Magnesium 1.7 mg/dL (1.7-2.3); Osmolality Calculated 295 mOsm/kg (285-295); Phosphorus 2.6 mg/dL (2.5-4.5); Potassium 3.9 mmol/L (3.5-5.1); Sodium 137 mmol/L (136-145); Total Bilirubin 0.2 mg/dL (0.15-1.2)
[2020-12-31 06:20] LABS: NT Pro B Type Natriuretic Pept 1214 pg/mL (0-125); Procalcitonin 0.12 ng/mL (0-0.5)
[2020-12-31 06:46] LABS: Glucose Point of Care 264 mg/dL (70-110)
[2020-12-31] MEDS: pregabalin 150 mg Capsule PO ×2 (08:53→17:28)
[2020-12-31] MEDS: aspirin 81 mg Chew Tablet PO (08:53)
[2020-12-31] MEDS: duloxetine 60 mg Capsule PO (08:53)
[2020-12-31] MEDS: pantoprazole DR 40 mg Tablet PO (08:53)
[2020-12-31] MEDS: cyanocobalamin 1,000 mcg Tablet 500 MCG PO (08:53)
[2020-12-31] MEDS: folic acid 1 mg Tablet PO (08:54)
[2020-12-31] MEDS: ferrous sulfate EC 325 mg Tablet PO ×2 (08:54→17:28)
[2020-12-31] MEDS: isosorbide mononitrate ER 30 mg Tablet PO ×2 (08:54→17:28)
[2020-12-31] MEDS: predniSONE 20 mg Tablet 40 MG PO (08:54)
[2020-12-31] MEDS: midodrine 5 mg TABLET PO ×2 (08:54→17:28)
[2020-12-31] MEDS: topiramate 25 mg Tablet 50 MG PO (09:01)
[2020-12-31] MEDS: ticagrelor 90 mg Tablet PO (09:01)
[2020-12-31] MEDS: levETIRAcetam 500 mg Tablet 1500 MG PO (09:01)
[2020-12-31] MEDS: ranolazine (12HR) 500 mg Tablet 1000 MG PO (09:02)
[2020-12-31 10:45] LABS: Glucose Point of Care 270 mg/dL (70-110)
[2020-12-31 11:27] LABS: COMPLEMENT COMPONENT C3C 180 mg/dL (83-193); COMPLEMENT COMPONENT C4C 28 mg/dL (15-57)
[2020-12-31 13:03] LABS: CENTROMERE B ANTIBODY <1.0 NEG AI (<1.0 NEG); JO-1 ANTIBODY <1.0 NEG AI (<1.0 NEG); RNP ANTIBODY <1.0 NEG AI (<1.0 NEG); SCL-70 ANTIBODY <1.0 NEG AI (<1.0 NEG); SJOGREN'S ANTIBODY (SS-A) <1.0 NEG AI (<1.0 NEG); SM ANTIBODY <1.0 NEG AI (<1.0 NEG); SS-B <1.0 NEG AI (<1.0 NEG)
[2020-12-31] MEDS: acetaminophen 325 mg Tablet 650 MG PO (13:28)
[2020-12-31] MEDS: cyclobenzaprine 10 mg Tablet PO (13:28)
[2020-12-31 13:32] LABS: COMPLEMENT, TOTAL (CH50) >60 U/mL (31-60)
--- NOTE | 2020-12-31 14:00 | P.DS_ITS ---
Discharge Providers Date of Admission: 12/29/20 10:08 Date of Discharge: December 31, 2020 Attending Provider at Admission: Kehinde Cruz MD Attending Provider at Discharge: Avila Marie Primary Care Provider: CHARLOTTE Pugh Diagnoses at Discharge Discharge Diagnosis (1) Hypotension: Status: Acute (2) Atypical chest pain: Status: Acute (3) Pericardial effusion: Status: Acute (4) Atherosclerotic heart disease of red [place] coronary artery with other forms of angina pectoris: Status: Acute (5) Pneumonia: Status: Acute Qualifiers: Pneumonia type: due to unspecified organism Laterality: bilateral Lung location: unspecified part of lung Qualified Code(s): J18.9 - Pneumonia, unspecified organism Reason for Visit Reason for Visit: chest pain Hospital Course Hospital Course Pleasant 55-year-old lady with history of CAD, status post stenting, COPD, CHF, DM2, HTN, HLD, fibromyalgia, chronic opiate therapy, current smoker, with history of prosthetic joint MRSA infection, status post explantation, with antibiotic spacer in place, on suppression therapy with Bactrim, following with infectious disease and orthopedics was admitted on 12/28 after episode of chest pain, noted hypotensive on presentation, with persistent hypotension progression to shock, with concomitant pneumonia, received treatment for septic shock, i nitially also concern regarding noted pericardial effusion, concern regarding cardiogenic shock. With noted to elevation on admission as well. On additional assessment by TTE, cardiology, pericardial effusion noted to be mild to moderate, unlikely contributing to hemodynamic instability. She gradually weaned off pressor support. Continued on antibiotic treatment for bilateral pneumonia. Was assessed with COVID-19 PCR which was negative. With possible adrenal sufficiency received steroid support. This was also continued and tapered off for COPD serration. She continued to gradually improve, with maintenance of stable blood pressures. With improvement in oxygenation. Remains chest pain-free. Sepsis is resolved. Leukocytosis trending down. Subjectively she is feeling much better, and request to return home today. On discussion with cardiology cardiac marker abnormalities most likely related to demand ischemia. She is deemed safe for discharge, but is asked to follow-up in office next week where she will be set up with outpatient stress testing. Pericardial effusion was thought to be related to her acute infection/illness. During hospitalization with history of knee infection, sepsis, was also assessed by orthopedics, and her left knee while with chronic pain, is continued to show improvement compared to prior, without appearance of active infection. Plain CT with nonspecific soft tissue thickening with spacer in place. Blood cultures negative. She will complete antibiotic course with Levaquin. Complete prednisone taper. She will also continue on daily suppression with Bactrim until definitive treatment of the left knee is accomplished as per infectious disease recommendation. She is encouraged to continue follow-up with infectious disease in office, orthopedics in addition to her other regular follow-up. Physical Exam Const: COMMON NORMALS: no acute distress, patient oriented x3 and alert GENERAL APPEARANCE: cooperative and comfortable ORIENTATION/CONSCIOUSNESS: Yes awake OTHER: In good spirits. Denies any complaints. Says she is feeling well, ready to return home. HENMT: COMMON NORMALS: oropharynx normal Neck/C-Spine: COMMON NORMALS: no JVD OTHER: Right IJ CVC. Requested removal. Resp: COMMON NORMALS: normal respiratory effort and clear to auscultation bilaterally AUSCULTATION: clear to auscultation bilaterally Cardio: COMMON NORMALS: no JVD, regular rhythm, S1 normal heart sound present, S2 normal heart sound present and No murmurs present (Cardio) RATE: tachycardic RHYTHM: regular rhythm HEART SOUNDS: S1 normal heart sound present and S2 normal heart sound present GI: COMMON NORMALS: Normal to inspection, nondistended, normoactive bowel sounds present, Soft to palpation and non-tender PALPATION: Yes Soft to palpation Extremity: COMMON NORMALS: no joint enlargement and no pedal edema OTHER: L knee not erythematous. Well-healed midline scar. No drainage. Neuro: COMMON NORMALS: patient oriented x3 and moves all extremities SENSORIUM/ORIENTATION: Yes alert Skin: COMMON NORMALS: no rashes or lesions noted GENERAL SKIN EXAM: no rashes or lesions noted OTHER: Small pressure ulcer at the sacrum to the left of midline, about 4 cm long lesion, about 1-2 cm wide. Softened eschar on top. No bleeding or drainage. Minimal ring of erythema. Healing pressure ulcer on the plantar/posterior aspect of the right heel, about 2 cm in size, no drainage. No surrounding erythema. Urinary Catheter Management^: [place]: Cath Placed During This Visit: yes Reason for Continuing Indwelling Catheter: Accurate Measurement of Urinary Output in Critically Ill Patients Urinary Catheter Date of Insertion: 12/29/20 Urinary Catheter Time of Insertion: 03:40 Discharge Data Data Completed and Pending: Completed Studies During Hospitalization Category Date Time Status CT angio chest PE protcl [id number] Stat Cat Scan 12/28/20 20:[address] knee LT wo con * [id number] Routine Cat Scan 12/29/20 17:27 Completed XR chest 1V calin ble [id number] Stat Exams 12/28/20 18:30 Completed XR chest 1V calin ble [id number] Stat Exams 12/28/20 18:30 Completed CV echo complete* [id number] Urgent Ultrasound 12/29/20 00:05 Completed Pending at discharge Category Date Time Status JUAN Profile Rheum atology Stat Lab 12/29/20 04:53 Results Blood Culture Rou jesus Lab 12/29/20 07:25 Results Blood Culture Rou jesus Lab 12/29/20 07:30 Results Sputum Culture an d Gram Stain Stat Lab 12/29/20 00:50 Uncollected Labs from last 24 hours 12/31/20 12/31/20 12/31/20 10:41 06:39 05:29 WBC RBC Hgb Hct MCV MCH MCHC RDW Plt Count MPV Neut % (Auto) Lymph % (Auto) Hoke % (Auto) Eos % (Auto) Baso % (Auto) Neut # (Auto) Lymph # (Auto) Hoke # (Auto) Eos # (Auto) Baso # (Auto) Nucleated RBC % (a uto) Nucleated RBCs # Sodium Potassium Chloride Carbon Dioxide Anion Gap BUN Creatinine GFR Calculation Glucose POC Glucose 270 H 264 H Calculated Osmolal ity Calcium Phosphorus Magnesium Total Bilirubin AST ALT Alkaline Phosphata se C-Reactive Protein NT-Pro-B Natriuret Pep 1214 H Total Protein Albumin Globulin Procalcitonin 0.12 Vancomycin Trough AMANUEL-1 Antibody SS-A Antibody SS-B Antibody Sm (Ascencio) Antibod y SWITCHBOARD INSTALLER Antibody Scl-70 Antibody Centromere B Antib honey Complement C3c Complement C4c CH50 Classical [address] Nasal/Oral COVID-1 9 PCR 12/31/20 12/31/20 12/30/20 05:29 05:29 20:36 WBC 17.2 H RBC 3.78 L Hgb 10.3 L Hct 32.4 L MCV 85.7 MCH 27.2 L MCHC 31.8 RDW 14.8 Plt Count 428 H MPV 9.7 Neut % (Auto) 69.6 Lymph % (Auto) 21.5 Hoke % (Auto) 7.4 Eos % (Auto) 0.2 Baso % (Auto) 0.1 Neut # (Auto) 11.97 H Lymph # (Auto) 3.7 Hoke # (Auto) 1.3 H Eos # (Auto) 0.0 Baso # (Auto) 0.0 Nucleated RBC % (a uto) 0 Nucleated RBCs # 0.0 Sodium 137 Potassium 3.9 Chloride 104 Carbon Dioxide 22 Anion Gap 14.9 BUN 19 Creatinine 0.6 GFR Calculation 104.6 Glucose 252 H POC Glucose 328 H Calculated Osmolal ity 295 Calcium 9.4 Phosphorus 2.6 Magnesium 1.7 Total Bilirubin 0.2 AST 6 ALT 8 Alkaline Phosphata se 70 C-Reactive Protein 50.5 H NT-Pro-B Natriuret Pep Total Protein 6.0 L Albumin 2.8 L Globulin 3.2 Procalcitonin Vancomycin Trough AMANUEL-1 Antibody SS-A Antibody SS-B Antibody Sm (Ascencio) Antibod y SWITCHBOARD INSTALLER Antibody Scl-70 Antibody Centromere B Antib honey Complement C3c Complement C4c CH50 Classical [place] Nasal/Oral COVID-1 9 PCR 12/30/20 12/30/20 12/29/20 16:37 13:30 12:00 WBC RBC Hgb Hct MCV MCH MCHC RDW Plt Count MPV Neut % (Auto) Lymph % (Auto) Hoke % (Auto) Eos % (Auto) Baso % (Auto) Neut # (Auto) Lymph # (Auto) Hoke # (Auto) Eos # (Auto) Baso # (Auto) Nucleated RBC % (a uto) Nucleated RBCs # Sodium Potassium Chloride Carbon Dioxide Anion Gap BUN Creatinine GFR Calculation Glucose POC Glucose 408 H Calculated Osmolal ity Calcium Phosphorus Magnesium Total Bilirubin AST ALT Alkaline Phosphata se C-Reactive Protein NT-Pro-B Natriuret Pep Total Protein Albumin Globulin Procalcitonin Vancomycin Trough 10.9 AMANUEL-1 Antibody SS-A Antibody SS-B Antibody Sm (Ascencio) Antibod y SWITCHBOARD INSTALLER Antibody Scl-70 Antibody Centromere B Antib honey Complement C3c Complement C4c CH50 [address] [place] Nasal/Oral COVID-1 9 PCR Not detected 12/29/20 04:53 WBC RBC Hgb Hct MCV MCH MCHC RDW Plt Count MPV Neut % (Auto) Lymph % (Auto) Hoke % (Auto) Eos % (Auto) Baso % (Auto) Neut # (Auto) Lymph # (Auto) Hoke # (Auto) Eos # (Auto) Baso # (Auto) Nucleated RBC % (a uto) Nucleated RBCs # Sodium Potassium Chloride Carbon Dioxide Anion Gap BUN Creatinine GFR Calculation Glucose POC Glucose Calculated Osmolal ity Calcium Phosphorus Magnesium Total Bilirubin AST ALT Alkaline Phosphata se C-Reactive Protein NT-Pro-B Natriuret Pep Total Protein Albumin Globulin Procalcitonin Vancomycin Trough AMANUEL-1 Antibody <1.0 neg SS-A Antibody <1.0 neg SS-B Antibody <1.0 neg Sm (Ascencio) Antibod y <1.0 neg SWITCHBOARD INSTALLER Antibody <1.0 neg Scl-70 Antibody <1.0 neg Centromere B Antib honey <1.0 neg Complement C3c 180 Complement C4c 28 CH50 Classical [place] >60 H Nasal/Oral COVID-1 9 PCR Vitals: Last Vital Signs Temp 97.6 F 12/31/20 11:27 Pulse 85 12/31/20 11:27 Resp 17 12/31/20 11:27 BP 116/67 12/31/20 11:27 Pulse Ox 96 12/31/20 11:27 Discharge Plan Discharge Patient Disposition: Home Condition: Stable Prescriptions: New isosorbide mononitrate 30 mg Tablet Extended Release 24 Hr 30 mg PO BID Qty: 60 RF: 0 prednisone 20 mg Tablet See Rx Instructions .ROUTE .COMPLEX Qty: 3 RF: 0 levofloxacin 750 mg tablet 750 mg PO DAILY 5 Days Qty: 5 RF: 0 Continued budesonide-formoterol [Symbicort] 160-4.5 mcg/actuation HFA aerosol inhaler 2 puff INHALATION Q12H Qty: 10.2 RF: 2 albuterol sulfate [Ventolin HFA] 90 mcg/actuation HFA aerosol inhaler 2 puff INHALATION QID PRN (Reason: shortness of breath or wheezing) 30 Days Qty: 6.7 RF: 2 (DME) Walker See Rx Instructions .ROUTE .MEDSUPPLY Qty: 1 RF: 0 hydromorphone 2 mg tablet 2 mg PO TID PRN (Reason: pain) 30 Days Qty: 21 RF: 0 cyclobenzaprine 10 mg tablet 10 mg PO TID PRN (Reason: muscle spasm) 30 Days Qty: 90 RF: 0 duloxetine 60 mg capsule, delayed rel sprinkle 60 mg PO DAILY@08 30 Days Qty: 30 RF: 0 pregabalin [Lyrica] 150 mg capsule 150 mg PO BID 30 Days Qty: 60 RF: 0 Ultram 50 mg tablet 50 mg .ROUTE .5 times a day PRN (Reason: pain) 30 Days Qty: 150 RF: 0 topiramate 50 mg tablet 50 mg PO BID@08,21 RF: 0 pantoprazole [Protonix] 40 mg tablet,delayed release (DR/EC) 40 mg PO DAILY@08 RF: 0 sulfamethoxazole-trimethoprim [Bactrim] 400-80 mg tablet 1 tab PO DAILY 90 Days Qty: 90 RF: 0 nitroglycerin 0.4 mg tablet, sublingual See Rx Instructions .ROUTE .COMPLEX Qty: 25 RF: 3 atorvastatin 40 mg tablet 40 mg PO DAILY@21 RF: 0 levetiracetam [Keppra] 500 mg Tablet 500 mg PO BID@, RF: 0 quetiapine [Seroquel] 50 mg tablet 50 mg PO BEDTIME@ RF: 0 ranolazine 500 mg tablet extended release 12 hr 1,000 mg PO BID@, RF: 0 Levemir FlexTouch U-100 Insuln 100 unit/mL (3 mL) insulin pen 10 unit SUBCUT DAILY@08 RF: 0 Brilinta 90 mg tablet 90 mg PO BID@ RF: 0 aspirin 81 mg Tablet,Chewable 81 mg PO DAILY@08 RF: 0 acetaminophen 325 mg Tablet 650 mg PO Q6H PRN (Reason: Mild/Mod Pain Or Temp >/= 101) Qty: 30 RF: 0 midodrine 5 mg Tablet 5 mg PO BID Qty: 60 RF: 0 cyanocobalamin (vitamin B-12) [Vitamin B-12] 1,000 mcg Tablet 500 mcg PO DAILY Qty: 30 RF: 0 folic acid 1 mg Tablet 1 mg PO DAILY Qty: 30 RF: 0 ferrous sulfate 325 mg (65 mg iron) Tablet,Delayed Release (Dr/Ec) 325 mg PO BIDWM Qty: 60 RF: 0 potassium chloride 20 mEq Tablet Extended Release 20 meq PO DAILY RF: 0 Changed Lasix 40 mg Tablet 40 mg PO DAILY PRN (Reason: Edema) Qty: 0 RF: 0 Discontinued isosorbide mononitrate 60 mg Tablet Extended Release 24 Hr 60 mg PO BID RF: 0 Discharge Orders: Discharge Order (Routine); Ordered 12/31/20 Ordered By: Avila Marie Referrals: Darrell Jerome MD [Physician] - 1 month Genevieve Crespo FNP-C [Primary Care Provider] - 4-7 days Aurea Walters FNP [Nurse Practitioner] - 1 week Discharge Diet: Cardiac and Diabetic Discharge Activity: Increase activity as tolerated, As per PT/OT instructions and Oxygen as instructed Patient Instructions: Pressure Ulcer (GEN), Pericardial Effusion (GEN), Pneumonia (GEN), Coronary Artery Disease (GEN), Chronic Obstructive Pulmonary Disease (GEN) Activity Restrictions/Additional Instructions: Target saturation at home 90-92%. If persistently remaining below 88%, please seek medical attention. Similarly please call 911 if experiencing severe shortness of breath, chest pain, fainting, or any other concerning symptoms. Please complete Levaquin for pneumonia. Please continue Bactrim as instructed by infectious disease specialist for suppression after knee infection. Please resume follow-up in office with the infectious disease specialist, as well as orthopedics. Please follow-up with cardiology office in 1 week, they are going to set you up with a stress test. Please make sure to complete the study and follow-up with them regarding the results. Please discuss with them again regarding fluid around your heart. Please monitor blood pressures at home. If blood pressures are decreasing, below ninety top number, or below 40-50 bottom number, please go to ER to be assessed. Please make sure to contact your neurologist Dr. Alberto as soon as possible to confirm what dose of Keppra he would like you to continue taking. Please make sure to discuss with your doctor any medication changes. Please continue wound care for pressure ulcer on sacrum, right heel. Please reposition frequently. Maintain good oral intake. Add protein shakes if possible. Please follow-up with your primary care doctor, and discuss referral to wound care clinic. Discharge Attestations Time Spent in Discharge Care*: greater than 30 min Quality Metrics Clinical Quality Measures During this hospital stay, did patient experience: None Coding Level of Care Code Acute Chg FW DC note Diagnoses Hypotension I95.9 Atypical chest pain R07.89 Pericardial effusion I31.3 Atherosclerotic heart disease of red [place] coronary artery with other forms of angina pectoris I25.118 Pneumonia J18.9 Pneumonia type: due to unspecified organism Laterality: bilateral Lung location: unspecified part of lung
[2020-12-31 16:53] LABS: Glucose Point of Care 377 mg/dL (70-110)
[2021-01-01 13:57] LABS: ANA SCREEN, IFA NEGATIVE (NEGATIVE); THYROID PEROXIDASE ANTIBODIES <1 IU/mL (<9)
[2021-01-03 01:13] LABS: DNA AB (DS) CRITHIDIA,IFA NEGATIVE (NEGATIVE)
== END 2020-12-31 17:55 | disposition home or self-care (01) | DRG 871 ==
LOC: ER 18:30 → CSU 23:50 → ICU 12-29 01:11 → MEDSURG 12-30 16:21
PROVIDERS: Admitting Provider Family Medicine; Emergency Provider Family Medicine; PCP Nurse Practitioner Family; Visit Provider Internal Medicine
DX: A41.9 Sepsis, unspecified organism (principal); R65.21 Severe sepsis with septic shock; J18.9 Pneumonia, unspecified organism; I31.3 Pericardial effusion (noninflammatory); J44.1 Chronic obstructive pulmonary disease with (acute) exacerbation; J44.0 Chronic obstructive pulmonary disease with (acute) lower respiratory infection; Z68.41 Body mass index [BMI] 40.0-44.9, adult; I24.8 Other forms of acute ischemic heart disease; M79.7 Fibromyalgia; I11.0 Hypertensive heart disease with heart failure; E11.65 Type 2 diabetes mellitus with hyperglycemia; E11.59 Type 2 diabetes mellitus with other circulatory complications; I95.9 Hypotension, unspecified; I25.118 Atherosclerotic heart disease of native coronary artery with other forms of angina pectoris; I50.9 Heart failure, unspecified; E78.5 Hyperlipidemia, unspecified; Z95.5 Presence of coronary angioplasty implant and graft; F17.210 Nicotine dependence, cigarettes, uncomplicated; Z79.891 Long term (current) use of opiate analgesic; Z20.822 Contact with and (suspected) exposure to COVID-19; Z79.82 Long term (current) use of aspirin; Z86.73 Personal history of transient ischemic attack (TIA), and cerebral infarction without residual deficits; E55.9 Vitamin D deficiency, unspecified; I25.2 Old myocardial infarction; G89.29 Other chronic pain; M54.5 Low back pain; E66.9 Obesity, unspecified
CPT/HCPCS: 36415; 36416; 36592; 36600; 51702; 71045; 71275; 73700; 80053; 80061; 80202; 81003; 82803; 82962; 83605; 83735; 83880; 84100; 84145; 84443; 84484; 85025; 85378; 85651; 86140; 86160; 86162; 86235; 86255; 86376; 87040; 87086; 87426; 87635; 93005; 93306; 94640; 94664; 96360; 96372; 97116; 97161; 97165; 99285; C1751; G0378; J0743; J1650; J1815; J1940; J2310; J2920; J3370; J3475; J3535; J7030; J7512; Q9967

== ENCOUNTER 2021-01-05 10:22 | Outpatient (CLI) | payer MEDICARE, MEDICAID, SELFPAY | END 2021-01-05 10:23 | disposition home or self-care (01) | LOC: WOUND 10:23 | PROVIDERS: PCP Nurse Practitioner Family; Visit Provider Nurse Practitioner Family | DX: E11.621 Type 2 diabetes mellitus with foot ulcer (principal); L97.412 Non-pressure chronic ulcer of right heel and midfoot with fat layer exposed; L89.323 Pressure ulcer of left buttock, stage 3 | CPT/HCPCS: 11042 ==

== ENCOUNTER → 2021-01-06 17:30 | Outpatient (BNVA) | payer MEDICARE, MEDICAID, SELFPAY | PROVIDERS: PCP Nurse Practitioner Family; Visit Provider Nurse Practitioner Family | DX: E11.42 Type 2 diabetes mellitus with diabetic polyneuropathy (principal); E55.9 Vitamin D deficiency, unspecified | CPT/HCPCS: 80053; 80061; 82306; 82607; 83036; 85025 ==

== ENCOUNTER 2021-01-12 11:04 | Outpatient (CLI) | payer MEDICARE, MEDICAID, SELFPAY | END 2021-01-12 11:05 | disposition home or self-care (01) | LOC: WOUND 11:07 | PROVIDERS: PCP Nurse Practitioner Family; Visit Provider Nurse Practitioner Family | DX: E11.621 Type 2 diabetes mellitus with foot ulcer (principal); L97.412 Non-pressure chronic ulcer of right heel and midfoot with fat layer exposed; L89.323 Pressure ulcer of left buttock, stage 3 | CPT/HCPCS: 11042 ==

== ENCOUNTER 2021-01-15 13:17 | Inpatient (IN) | payer MEDICARE, MEDICAID, SELFPAY ==
[2021-01-15] VITALS (16 sets, daily range): BP systolic 68–142; BP diastolic 48–83; PULSE 90–117; RESP 16–28; TEMP 36.4–37.1; O2SAT 91–100; BMI 48.7
--- NOTE | 2021-01-15 13:39 | XR_ITS ---
WS: [id number] Portable AP upright chest, 01/15/2021 Clinical Data: dyspnea Comparison: Portable chest, 12/29/2020. Findings: Diffuse bilateral patchy opacities are still present in both lungs. Heart is slightly enlar ged. No pneumothorax is seen. There are no nodules, masses or effusions. XR/XR chest 1V portable [id number] Impression: 1. Bilateral patchy opacities unchanged which could represent pneumonia. 2. Cardiomegaly. ,
--- NOTE | 2021-01-15 13:39 | ECG_ITS ---
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 Measurements Intervals [place] Rate: 96 P: 30 OR: 192 QRS: 27 QRSD: 92 T: 85 QT: 371 QTc: 470 Interpretive Statements SINUS RHYTHM LOW QRS VOLTAGE IN PRECORDIAL LEADS [QRS DEFLECTION < 1.0 mV IN CHEST LEADS] NONSPECIFIC ST & T-WAVE ABNORMALITY Compared to ECG 12/29/2020 01:54:13 Low QRS voltage now present T-wave abnormality now present Electronically Signed On 01-15-2021 17:18:14 CDT by Marlee Olmos M.D. [id number]
--- NOTE | 2021-01-15 13:53 | PC.NURSE ---
Hooked patient up to the night monitor to watch from the nurses station. Patient visitor stated that after being discharged from the hospital the last time the hospitalist bumped her oxygen level from 2-2.5 to 3. The patient nodded and agreed in verifying that was true. I went and notified the patient nurse and the E.R physician. Dr. Hewitt said to put on 2L for now. I lowered the patient's O2 from 3L to 2L per his verbal order. The patient was okay with that.
[2021-01-15 14:15] LABS: Basophils # 0.1 10^3/uL (0.0-0.1); Basophils % 0.4 %; Eosinophils # 0.2 10^3/uL (0.0-0.8); Eosinophils % 1.2 %; Hematocrit 30.7 % (37.0-47.0); Hemoglobin 9.9 g/dL (11.5-15.3); Lymphocytes # 2.5 10^3/uL (0.8-4.8); Lymphocytes % 18.2 %; Mean Corpuscular HGB Conc 32.2 g/dL (30.0-36.0); Mean Corpuscular Hemoglobin 26.8 pg (28.0-34.0); Mean Corpuscular Volume 83.2 fL (81-99); Mean Platelet Volume 9.1 fL (7.4-10.4); Monocytes # 1.3 10^3/uL (0.2-0.9); Monocytes % 9.8 %; Neutrophils # 9.42 10^3/uL (1.8-7.7); Neutrophils % 68.8 %; Nucleated Red Blood Cells % 0.1 %; Platelet Count 522 10^3/cmm (130-400); Red Blood Count 3.69 10^6/uL (4.1-5.3); Red Cell Distribution Width 14.9 % (12.1-15.1); White Blood Count 13.7 10^3/uL (4.0-10.0)
[2021-01-15 14:18] LABS: ABG PCO2 38.8 mmHg (35-45); ABG PH Result 7.47 (7.35-7.45); Arterial Blood Gas Hematocrit 30.7 % (37-47); Blood Gas Allen Test Pos; Blood Gas Sample Type Arterial; Carboxyhemoglobin 3.5 %THgb (0.4-20.1); HGB O2 Sat 91.9 % (95-100); Ionized Calcium Level - ABG 1.2 mmol/L (1.1-1.4); Methemoglobin 0.6 % (0.4-1.5); Oxygen Saturation ABG 95.8; PO2 ABG 73.4 mmHg (80.0-100.0); Potassium Level - ABG 4.4 mmol/L (3.5-5.0)
[2021-01-15 14:21] LABS: Alveolar-Arterial Oxygen Gradi 10.6 mmHg (5-10); Blood Gas Operator Identificat ED; Blood Gas Sample Site Radial, left; Oxygen Device NC
--- NOTE | 2021-01-15 14:31 | ED_ITS ---
HPI - Chest Pain General: Chief Complaint: Chest Pain Stated Complaint: chest pain, trouble breathing Time Seen by Provider: 01/15/21 13:49 History of Present Illness: HPI narrative: 55-year-old female presents to the emergency room complaining of difficulty breathing. She has a history of COPD. she complaining of shortness of breath she usually wears 2 to 3 L by nasal cannula and is wearing that now. MD complaint: chest pain and chest heaviness Onset (ago): day(s) Onset: during rest Pain location: left chest Pain radiation: none Severity: moderate Relieving factors: nothing Exacerbating factors: inspiration and palpation Associated symptoms: Reports dyspnea; Deny abdominal pain, diaphoresis, fever(s), leg edema, nausea, palpitations, sense of impending doom, syncope or vomiting Treatment prior to arrival: none Review of Systems Const: Denies: fever(s) or diaphoresis ENMT: Denies: throat pain, ear or mastoid pain, nasal discharge or nasal congestion Card: Denies: palpitations or syncope Resp: Reports: dyspnea GI: Denies: abdominal pain, nausea or vomiting : Denies: flank pain, difficulty voiding, dysuria, urinary frequency or urinary urgency Skin/Breast: Denies: rash or pruritus PFSH ED PFSH: Medical History (Updated 01/19/21 @ 16:15 by Luis Hewitt DO) (HFpEF) heart failure with preserved ejection fraction Anemia Atherosclerotic heart disease of [place] coronary artery with other forms of angina pectoris Atherosclerotic heart disease of [place] coronary artery with unspecified angina pectoris CAD (coronary artery disease) Chest pain Chest pain, midsternal Chronic congestive heart failure Chronic left-sided low back pain Chronic obstructive pulmonary disease, unspecified Chronic pain of left knee Congestive heart failure COPD (chronic obstructive pulmonary disease) Coronary artery disease due to type 2 diabetes mellitus Current every day smoker CVA (cerebral vascular accident) Diabetes type 2, uncontrolled Dyslipidemia Elevated troponin Encounter for long-term opiate analgesic use Essential hypertension Fibromyalgia Fibromyalgia, primary Hyperlipidemia, mixed Insomnia Intervertebral disc disorder of lumbar region with myelopathy Leukocytosis Low back pain radiating to both legs Lumbosacral spondylosis without myelopathy NSTEMI (non-ST elevated myocardial infarction) Thought to be secondary to plaque rupture. Angiogram July 04 no flow- limiting lesions, or restenosis of previous stent from April 2020 Obesity (BMI 35.0-39.9 without comorbidity) Opioid contract exists Osteoarthritis of spine at multiple levels Type 2 diabetes mellitus Type 2 diabetes mellitus with diabetic autonomic (poly)neuropathy Vitamin D deficiency Surgical History History of arthroscopic surgery of elbow BILATERAL History of coronary angiogram Angiogram April 2020 with 90% circumflex lesion, drug-eluting stent placed by Dr. Jerome S/p bilateral carpal tunnel release S/P hysterectomy S/P knee surgery RIGHT S/P lumbar fusion DR. Shreya ZAYAS IN [place], [place] L4-L5, L5-S1 Status post left knee replacement Status post lumbar laminectomy Family History Other CAD (coronary artery disease) Cancer Diabetes Social History Smoking and tobacco status: current every day smoker cigarettes [ Other cigarette details: PER PATIENT REPORT ] Second hand smoke exposure: Yes Smoking risk assessment/counseling performed?: Yes Alcohol intake: former Desire information about alcohol rehabilitation?: No Counseling given: No Desire information about substance/drug rehabilitation?: No Counseling given: No Caregiver/support person: No Lives independently: Yes Household members: family and other Details: son Housing: Manufactured/Mobile home Marital status: Unknown Marital status details: She and son state she is not service: No Current occupational status: unemployed Pets and animals: Yes History of recent travel: No Current gender identity: Female Physical Exam Const: COMMON NORMALS: no acute distress GENERAL APPEARANCE: cooperative and comfortable ORIENTATION/CONSCIOUSNESS: Yes awake, Yes oriented to person, Yes oriented to place and Yes oriented to time HENMT: COMMON NORMALS: normocephalic, atraumatic and hearing grossly normal bilaterally HEAD & SCALP: normocephalic and atraumatic Neck/C-Spine: COMMON NORMALS: no JVD Resp: COMMON NORMALS: normal respiratory effort, No retractions, No use of accessory muscles and clear to auscultation bilaterally AUSCULTATION: clear to auscultation bilaterally Cardio: COMMON NORMALS: no JVD, regular rate, regular rhythm and No murmurs present (Cardio) RATE: regular rate RHYTHM: regular rhythm GI: COMMON NORMALS: Soft to palpation and No hepatosplenomegaly present AUS CULTATION: Yes normoactive bowel sounds PALPATION: Yes Soft to palpation, No Tenderness to palpation present (GI), No Guarding due to palpation present (GI) and Yes No hepatosplenomegaly present Extremity: COMMON NORMALS: normal to inspection, capillary refill normal, no clubbing, cyanosis or edema, no calf tenderness and no pedal edema Neuro: SENSORIUM/ORIENTATION: Yes oriented to person, Yes oriented to place and Yes oriented to time Skin: COMMON NORMALS: no rashes or lesions noted GENERAL SKIN EXAM: no rashes or lesions noted Course Vital Signs: Vital signs: Vital Signs Temperature 97.8 F 01/18/21 12:32 Pulse Rate 65 01/18/21 12:32 Respiratory Rate 17 01/18/21 12:32 Blood Pressure 112/78 01/18/21 12:32 Pulse Oximetry 95 01/18/21 08:04 MDM - Chest Pain MDM Narrative: Medical decision making narrative: Very concerned about this patient as her hemoglobin is dropped a couple of points since she had reported some increased oxygen requirements. Not finding a source of her bleeding she is chronically anemic. She also has some cognitive disability that think will make it very difficult for her to get back in to be evaluated should she worsen. Discussed with the hospitalist I am recommending observation at minimum to monitor for further drop in her hemoglobin. Lab Data: Labs: Lab Results 01/15/21 01/15/21 01/15/21 Range/Units 14:06 14:06 14:06 WBC 13.7 H (4.0-10.0) 10^3/ uL RBC 3.69 L (4.1-5.3) 10^6/u L Hgb 9.9 L (11.5-15.3) g/dL Hct 30.7 L (37.0-47.0) % MCV 83.2 (81-99) fL MCH 26.8 L (28.0-34.0) pg MCHC 32.2 (30.0-36.0) g/dL RDW 14.9 (12.1-15.1) % Plt Count 522 H (130-400) 10^3/c mm MPV 9.1 (7.4-10.4) fL Neut % (Auto) 68.8 % Lymph % (Auto) 18.2 % [place] % (Auto) 9.8 % Eos % (Auto) 1.2 % Baso % (Auto) 0.4 % Neut # (Auto) 9.42 H (1.8-7.7) 10^3/u L Lymph # (Auto) 2.5 (0.8-4.8) 10^3/u L [place] # (Auto) 1.3 H (0.2-0.9) 10^3/u L Eos # (Auto) 0.2 (0.0-0.8) 10^3/u L Baso # (Auto) 0.1 (0.0-0.1) 10^3/u L Nucleated RBC % (a uto) 0.1 % Nucleated RBCs # 0.0 /100WBC Specimen Type Sample Site ABG pH (7.35-7.45) ABG pCO2 (35-45) mmHg ABG pO2 (80.0-100.0) mmH g ABG HCO3 (22-26) mmol/L ABG O2 Saturation ABG Base Excess (-2.0-2.0) mmol/ L Freddy Test A-a O2 Gradient (5-10) mmHg Hematocrit (37-47) % Hgb O2 Saturation (95-100) % Carboxyhemoglobin (0.4-20.1) %THgb Methemoglobin (0.4-1.5) % Total Hemoglobin (12-16) g/dL Ionized Calcium (1.1-1.4) mmol/L O2 Delivery Device O2 Liters/Min % FiO2 % Professional [employer] Player ID Sodium 131 L (136-145) mmol/L Potassium 4.6 (3.5-5.1) mmol/L Chloride 93 L (98-107) mmol/L Carbon Dioxide 26 (22-29) mmol/L Anion Gap 16.6 (5-19) BUN 9 (6-20) mg/dL Creatinine 0.6 (0.5-0.9) mg/dL GFR Calculation 104.6 (90-130) mL/min Glucose 320 H (65-115) mg/dL Calculated Osmolal ity 283 L (285-295) mOsm/k g Calcium 8.8 (8.5-10.5) mg/dL Total Bilirubin 0.2 (0.15-1.2) mg/dL AST 9 (0-32) U/L ALT 9 (0-33) U/L Alkaline Phosphata se 86 (35-105) IU/L Troponin T Baselin e 35 H (0-10) ng/L Troponin T 120 Min [place] (0-10) ng/L Delta Troponin T (0-10) ABS# Total Protein 5.4 L (6.6-8.7) g/dL Albumin 3.2 L (3.5-5.2) g/dL Globulin 2.2 (1.3-4.6) g/dL 01/15/21 01/15/21 Range/Units 14:09 15:56 WBC (4.0-10.0) 10^3/ uL RBC (4.1-5.3) 10^6/u L Hgb (11.5-15.3) g/dL Hct (37.0-47.0) % MCV (81-99) fL MCH (28.0-34.0) pg MCHC (30.0-36.0) g/dL RDW (12.1-15.1) % Plt Count (130-400) 10^3/c mm MPV (7.4-10.4) fL Neut % (Auto) % Lymph % (Auto) % [place] % (Auto) % Eos % (Auto) % Baso % (Auto) % Neut # (Auto) (1.8-7.7) 10^3/u L Lymph # (Auto) (0.8-4.8) 10^3/u L [place] # (Auto) (0.2-0.9) 10^3/u L Eos # (Auto) (0.0-0.8) 10^3/u L Baso # (Auto) (0.0-0.1) 10^3/u L Nucleated RBC % (a uto) % Nucleated RBCs # /100WBC Specimen Type Arterial Sample Site Radial, left ABG pH 7.47 H (7.35-7.45) ABG pCO2 38.8 (35-45) mmHg ABG pO2 73.4 L (80.0-100.0) mmH g ABG HCO3 28.0 H (22-26) mmol/L ABG O2 Saturation 95.8 ABG Base Excess 4.0 H (-2.0-2.0) mmol/ L Freddy Test Pos A-a O2 Gradient 10.6 H (5-10) mmHg Hematocrit 30.7 L (37-47) % Hgb O2 Saturation 91.9 L (95-100) % Carboxyhemoglobin 3.5 (0.4-20.1) %THgb Methemoglobin 0.6 (0.4-1.5) % Total Hemoglobin 10.0 L (12-16) g/dL Ionized Calcium 1.2 (1.1-1.4) mmol/L O2 Delivery Device Nc O2 Liters/Min 2.0 % FiO2 28.0 % Professional [employer] Player ID Ed Sodium 133.0 (136-145) mmol/L Potassium 4.4 (3.5-5.1) mmol/L Chloride (98-107) mmol/L Carbon Dioxide (22-29) mmol/L Anion Gap (5-19) BUN (6-20) mg/dL Creatinine (0.5-0.9) mg/dL GFR Calculation (90-130) mL/min Glucose 314.0 H (65-115) mg/dL Calculated Osmolal ity (285-295) mOsm/k g Calcium (8.5-10.5) mg/dL Total Bilirubin (0.15-1.2) mg/dL AST (0-32) U/L ALT (0-33) U/L Alkaline Phosphata se (35-105) IU/L Troponin T Baselin e (0-10) ng/L Troponin T 120 Min [place] 35.32 H (0-10) ng/L Delta Troponin T 0.32 (0-10) ABS# Total Protein (6.6-8.7) g/dL Albumin (3.5-5.2) g/dL Globulin (1.3-4.6) g/dL Discharge Plan Discharge Patient Disposition: Admitted As Inpatient Admit Provider: Emeterio Prather Clinical Impression: Anemia, Atypical chest pain, Dyspnea Condition: Stable Discharge Diet: Diabetic Discharge Activity: Resume usual activity Coding Level of Care Code ED 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
[2021-01-15 14:35] LABS: Troponin(5th) Baseline 35 ng/L (0-10)
[2021-01-15 14:41] LABS: Alanine Aminotransferase 9 U/L (0-33); Albumin Level 3.2 g/dL (3.5-5.2); Alkaline Phosphatase 86 IU/L (35-105); Anion Gap 16.6 (5-19); Aspartate Amino Transferase 9 U/L (0-32); Blood Urea Nitrogen 9 mg/dL (6-20); Calcium 8.8 mg/dL (8.5-10.5); Carbon Dioxide 26 mmol/L (22-29); Chloride 93 mmol/L (98-107); Creatinine Clr Calc Pharmacy 149.5454; Globulin 2.2 g/dL (1.3-4.6); Glomerular Filtration Rate 104.6 mL/min (90-130); Glucose 320 mg/dL (65-115); Osmolality Calculated 283 mOsm/kg (285-295); Potassium 4.6 mmol/L (3.5-5.1); Sodium 131 mmol/L (136-145); Total Bilirubin 0.2 mg/dL (0.15-1.2); Total Protein 5.4 g/dL (6.6-8.7)
--- NOTE | 2021-01-15 15:39 | ECG_ITS ---
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 Measurements Intervals [place] Rate: 94 P: 14 CO: 170 QRS: 22 QRSD: 89 T: 78 QT: 366 QTc: 458 Interpretive Statements SINUS RHYTHM NONSPECIFIC ST & T-WAVE ABNORMALITY Compared to ECG 01/15/2021 13:36:12 No significant changes Electronically Signed On 01-15-2021 17:24:24 CDT by Marlee Olmos M.D. [email or web address]
--- NOTE | 2021-01-15 16:13 | PC.NURSE ---
EKG done at 1605 and shown to ER doctor
[2021-01-15] MEDS: sodium chloride 0.9% 1,000 ML 999 ML IV (16:24)
[2021-01-15 16:29] LABS: Troponin 5 2HR 35.32 ng/L (0-10); Troponin 5 2HR Delta 0.32 ABS# (0-10)
--- NOTE | 2021-01-15 16:29 | PC.NURSE ---
ED Physician performed rectal exam with a negative hemaoccult test
--- NOTE | 2021-01-15 16:32 | PC.NURSE ---
Patient status When initiating patients IV, patient appeared fatigued & could not answer date, month, year, and continued to fall asleep between questions. Physician was notified and reports patients past history of mental health
[2021-01-15 17:06] LABS: Hematocrit 31.1 % (37.0-47.0)
--- NOTE | 2021-01-15 18:28 | PM.HP ---
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 She underwent removal of the joint components with placement of an antibiotic spacer on September 30 and then again repeat I&D on October 07 for persistent leukocytosis and signs of local infection. OR cultures returned with MRSA. She is completing a 6-week course of IV antibiotics with vancomycin at [facility] between October 07 to November 18, 2020. She came in today with c/o chest pain as well as SOB.Describe the chest pain as substernal 4/10 in severity, non radiating, dull.SOB present initailly in the ER has currently improved, she is at her baseline oxygen requirement of 2ls.Deny any cough,fever,chills,nausea,vomiting. Patient was also found to be hypotensive in ER and there was also some concern regarding her low Hb. FOBT was negative. She was worked up for the above mention complain. EKG : SINUS RHYTHM WITH NONSPECIFIC ST & T-WAVE ABNORMALITY. XR chest 1V portable: Diffuse bilateral patchy opacities are still present in both lungs. 2D Echo : : Normal left ventricular size and systolic function, EF 70 %. No regional wall motion abnormalities. Small to moderate pericardial effusion. No echocardiographic evidence of tamponade. Thickened noncoronary cusp of the aortic valve. Minimally thickened mitral valve. Pertinent labs : Troponin T : Without Significant Delta : ABG: Ph: 7.47, PCO2: 38, PO2: 73, FIO2: 28 % WBC : 13.7 H/H: 08/16 PLT: 522 , Review of Systems Const: Denies: fever(s), chills, body aches, change in appetite or diaphoresis Card: Denies: palpitations, orthopnea or leg pain with exertion Resp: Denies: dyspnea or pain on inspiration GI: Denies: abdominal pain, nausea, vomiting, diarrhea or constipation : Denies: flank pain Musc: Denies: back pain, extremity pain or extremity swelling Neuro: Denies: headache(s), difficulty walking or confusion Medications/Allergies Home Medications Medication Instructions Recorded Confirmed Last Taken Type pantoprazole 40 mg tablet,delayed 40 mg PO DAILY@11/05/19 01/15/21 01/15/21 History release topiramate 50 mg tablet 50 mg PO BID@11/05/19 01/15/21 01/15/21 History atorvastatin 40 mg PO DAILY@06/14/20 01/15/21 01/14/21 History albuterol sulfate 90 mcg/actuation 2 puff INHALATION QID PRN 30 Days 08/26/20 01/15/21 09/28/20 Rx aerosol inhaler #6.7 gm budesonide-formoterol HFA 160 2 puff INHALATION Q12H #10.2 gm 08/26/20 01/15/21 01/15/21 Rx mcg-4.5 mcg/actuation aerosol inhaler Brilinta 90 mg PO BID@09/29/20 01/15/21 01/15/21 History aspirin 81 mg PO DAILY@09/29/20 01/15/21 01/15/21 History levetiracetam [Keppra] 500 mg PO BID@09/29/20 01/15/21 01/15/21 History quetiapine [Seroquel] 50 mg PO BEDTIME@09/29/20 01/15/21 01/14/21 History ranolazine 1,000 mg PO BID@09/29/20 01/15/21 01/15/21 History acetaminophen 650 mg PO Q6H PRN #30 tab 10/16/20 01/15/21 Unknown Rx cyanocobalamin (vitamin B-12) 500 mcg PO DAILY #30 tab 10/16/20 01/15/21 Unknown Rx [Vitamin B-12] ferrous sulfate 325 mg PO BIDWM #60 tab 10/16/20 01/15/21 Unknown Rx folic acid 1 mg PO DAILY #30 tab 10/16/20 01/15/21 Unknown Rx nitroglycerin 0.4 mg sublingual See Rx Instructions .ROUTE 11/06/20 01/15/21 Unknown Rx tablet .COMPLEX #25 tab cyclobenzaprine 10 mg tablet 10 mg PO TID PRN 30 Days #90 tab 12/25/20 01/15/21 Unknown Rx duloxetine 60 mg capsule,delayed 60 mg PO DAILY@08 30 Days #30 cap 12/25/20 01/15/21 01/15/21 Rx release sprinkle tramadol 50 mg tablet 50 mg .ROUTE .5 times a day PRN 30 12/25/20 01/15/21 01/15/21 Rx Days #150 tab potassium chloride 20 meq PO DAILY@08 12/29/20 01/15/21 01/15/21 History furosemide [Lasix] 40 mg PO DAILY PRN #0 tab 12/31/20 01/15/21 Unknown Rx hydromorphone 2 mg tablet 2 mg PO TID PRN 30 Days #90 tab 01/02/21 01/15/21 01/15/21 Rx lidocaine 5 % topical patch 1 patch TOPICAL DAILY #30 ea 01/07/21 01/15/21 Unknown Rx insulin detemir U-100 100 unit/mL 20 unit SUBCUT DAILY@08 #15 ml 01/09/21 01/15/21 01/15/21 Rx (3 mL) subcutaneous pen Lyrica 150 mg PO BID@01/15/21 01/15/21 01/15/21 History collagenase clostridium histo. 1 applic TOPICAL DAILY 01/15/21 01/15/21 01/15/21 History [Santyl] ergocalciferol (vitamin D2) 1,250 mcg PO Q7D 01/15/21 01/15/21 01/12/21 History isosorbide mononitrate 60 mg PO BID@01/15/21 01/15/21 01/15/21 History midodrine 5 mg PO BID 01/15/21 01/15/21 Unknown History Allergies Allergy/AdvReac Type Severity Reaction Status Date / Time adhesive Allergy Unknown Verified 01/15/21 13:26 clindamycin Allergy ADR-Itching Verified 01/15/21 13:26 codeine Allergy Unknown Verified 01/15/21 13:26 hydrocodone Allergy Unknown Verified 01/15/21 13:26 latex Allergy ALGY-Swell Verified 01/15/21 13:26 Lip/Tongue/Throat naproxen [From Naprosyn] Allergy Unknown Verified 01/15/21 13:26 nut - unspecified Allergy ALGY-Anaphy Verified 01/15/21 13:26 laxis oxycodone [From Roxicodone] Allergy ADR-Muscle Verified 01/15/21 13:26 Pain Penicillins Allergy Unknown Verified 01/15/21 13:26 sulfamethoxazole Allergy ADR-Migrain Verified 01/15/21 13:26 [From Bactrim] e trimethoprim [From Bactrim] Allergy ADR-Migrain Verified 01/08/21 13:14 e PFSH Acute PFSH: Medical History (Updated 01/15/21 @ 19:57 by Emeterio Prather MD) Atherosclerotic heart disease of [place] coronary artery with other forms of angina pectoris Atherosclerotic heart disease of [place] coronary artery with unspecified angina pectoris Chest pain, midsternal Chronic congestive heart failure Chronic left-sided low back pain Chronic obstructive pulmonary disease, unspecified Chronic pain of left knee Congestive heart failure Coronary artery disease due to type 2 diabetes mellitus Current every day smoker CVA (cerebral vascular accident) Diabetes type 2, uncontrolled Dyslipidemia Elevated troponin Encounter for long-term opiate analgesic use Essential hypertension Fibromyalgia Fibromyalgia, primary Hyperlipidemia, mixed Insomnia Intervertebral disc disorder of lumbar region with myelopathy Low back pain radiating to both legs Lumbosacral spondylosis without myelopathy NSTEMI (non-ST elevated myocardial infarction) Thought to be secondary to plaque rupture. Angiogram July 04 no flow-limiting lesions, or restenosis of previous stent from April 2020 Obesity (BMI 35.0-39.9 without comorbidity) Opioid contract exists Osteoarthritis of spine at multiple levels Type 2 diabetes mellitus with diabetic autonomic (poly)neuropathy Vitamin D deficiency Surgical History History of arthroscopic surgery of elbow BILATERAL History of coronary angiogram Angiogram April 2020 with 90% circumflex lesion, drug-eluting stent placed by Dr. Jerome S/alis bilateral carpal tunnel release S/P hysterectomy S/P knee surgery RIGHT S/P lumbar fusion DR. Shreya ZAYAS IN [place], [place] L4-L5, L5-S1 Status post left knee replacement Status post lumbar laminectomy Family History Other CAD (coronary artery disease) Cancer Diabetes Social History Smoking and tobacco status: current every day smoker cigarettes [ Other cigarette details: PER PATIENT REPORT ] Second hand smoke exposure: Yes Smoking risk assessment/counseling performed?: Yes Alcohol intake: former Desire information about alcohol rehabilitation?: No Counseling given: No Desire information about substance/drug rehabilitation?: No Counseling given: No Caregiver/support person: No Lives independently: Yes Household members: family and other Details: son Housing: Manufactured/Mobile home Marital status: Unknown Marital status details: She and son state she is not service: No Current occupational status: unemployed Pets and animals: Yes History of recent travel: No Current gender identity: Female Vitals/I&O/Wt Last Vital Signs Temp 98.7 F 01/15/21 13:26 Pulse 91 01/15/21 18:20 Resp 18 01/15/21 18:20 BP 124/80 01/15/21 18:20 Pulse Ox 99 01/15/21 18:20 Weight last 48 hrs Weight 132.903 kg Physical Exam Narrative: EXAM NARRATIVE: Alert and Awake HENMT: COMMON NORMALS: normocephalic and atraumatic HEAD & SCALP: normocephalic and atraumatic Chest: CHEST: Yes Symmetrical chest wall rise Resp: COMMON NORMALS: clear to auscultation bilaterally EFFORT & INSPECTION: Yes symmetric chest movement AUSCULTATION: clear to auscultation bilaterally Cardio: COMMON NORMALS: regular rate, regular rhythm, S1 normal heart sound present, S2 normal heart sound present, No gallops present (Cardio), No murmurs present (Cardio), No rub (Cardio) and Peripheral pulses 2+ throughout RATE: regular rate RHYTHM: regular rhythm HEART SOUNDS: S1 normal heart sound present and S2 normal heart sound present PERIPHERAL PULSES: Peripheral pulses 2+ throughout GI: COMMON NORMALS: Normal to inspection, nondistended, normoactive bowel sounds present, Soft to palpation, non-tender, No hepatosplenomegaly present and no masses AUSCULTATION: Yes normoactive bowel sounds PALPATION: Yes Soft to palpation and Yes No hepatosplenomegaly present RECTAL EXAM: deferred Extremity: NARRATIVE EXTREMITY EXAM: 2 + B/L L/E Edema Neuro: COMMON NORMALS: patient oriented x3 Data : 01/16/21 05:16 01/16/21 05:16 A&P Assessment and plan (1) Chest pain: CSA Troponin Trend: Chronically elevated without significant delta. EKG: SINUS RHYTHM WITH NONSPECIFIC ST & T-WAVE ABNORMAILITY. 2D Echo : : Normal left ventricular size and systolic function, EF 70 %. No regional wall motion abnormalities. Small to moderate pericardial effusion. No echocardiographic evidence of tamponade. Thickened noncoronary cusp of the aortic valve. Minimally thickened mitral valve. Continue : IMDUR 60 MG PO BID Ranexa 1000 mg po BID SL Nitro Tele Status: Acute (2) (HFpEF) heart failure with preserved ejection fraction: Currently compensated Lasix 40 mg I.V Daily KCL 20 MG PO Daily I/O Charting Daily weight K>4 , Mg > 2 Status: Acute (3) CAD (coronary artery disease): CAD x5, last stenting in April 2020. Brillanta 90 mg po BID Aspirin 81 mg po daily Lipitor 40 mg po daily Status: Acute (4) Type 2 diabetes mellitus: LDSSI FSG Status: Acute Qualifiers: Diabetes mellitus complication status: with hyperglycemia Diabetes mellitus jail insulin use: with jail use Qualified Code(s): E11.65 - Type 2 diabetes mellitus with hyperglycemia; Z79.4 - buttermaker continuous churn (current) use of insulin (5) COPD (chronic obstructive pulmonary disease): Currently not in Exacerbation.At her baseline oxygen requirement. Duo Nebs Supplemental Oxygen Status: Acute (6) Anemia: Likely Anemia of Chronic Disease. FOBT Negative Will Monitor CBC Status: Acute (7) Leukocytosis: No clinical signs of infections. Blood Culture Urine Culture Xray chest Lactic Acid Procalcitonin Hold Abx s for now Status: Acute Qualifiers: Leukocytosis type: unspecified Qualified Code(s): D72.829 - Elevated white blood cell count, unspecified Additional A&P Information Code Status :Full code DVT PPX: On Lovenox Diposition : Home Attestations Medical Necessity Statement*: Patient needs to be in hospital for chest pain,SOB,and anemia work up and to r/ro any possible bleed.Anticipated LOS Greater then 2 midnights. 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
[2021-01-15 20:42] LABS: Troponin 5 6HR 33.48 ng/L (0-10)
[2021-01-15 20:43] LABS: Troponin 5 6HR Delta -1.52 ng/L (0-12)
[2021-01-15] MEDS: D5-NS 0.45% + KCL 20 mEq 20 MEQ/1,000 ML BAG 125 MEQ IV (21:49)
[2021-01-15] MEDS: enoxaparin 40 mg/0.4 mL Syringe SUBCUT (21:50)
[2021-01-15] MEDS: albuterol 8 gm MDI 2 PUFF INHALATION (21:50)
[2021-01-15] MEDS: atorvastatin 40 mg Tablet PO (21:51)
[2021-01-15] MEDS: levETIRAcetam 500 mg Tablet PO (21:51)
[2021-01-15] MEDS: pregabalin 150 mg Capsule PO (21:51)
[2021-01-15] MEDS: isosorbide mononitrate ER 60 mg Tablet PO (21:51)
[2021-01-15] MEDS: quetiapine 25 mg Tablet 50 MG PO (21:52)
[2021-01-15] MEDS: TRAMadol 50 mg Tablet PO (22:11)
[2021-01-15] MEDS: cyclobenzaprine 10 mg Tablet PO (22:12)
[2021-01-15] MEDS: ranolazine (12HR) 500 mg Tablet 1000 MG PO (22:37)
[2021-01-15] MEDS: ticagrelor 90 mg Tablet PO (22:37)
[2021-01-15] MEDS: topiramate 25 mg Tablet 50 MG PO (22:38)
[2021-01-16] VITALS (17 sets, daily range): BP systolic 98–110; BP diastolic 65–73; PULSE 86–100; RESP 16–19; TEMP 36.5–37.2; O2SAT 91–97
[2021-01-16] MEDS: TRAMadol 50 mg Tablet PO ×3 (01:57→14:28)
--- NOTE | 2021-01-16 02:17 | PC.NURSE ---
0200 Patient screaming in bed with complaint of chest pain, below left breast and not radiating rated 10/10. Dt Alphonse notified, V/S B/P 99/64, pulse 101, resp. 22 - 95% on O2 at 2lpm, temp 98.4. Orders received to give 1 50 mg Tramadol po now. and hold any hypertensive meds she takes in am. Tramadol given and she calmed within 5 minutes then said she could not breathe. RT to room, sat good at 94%, lungs clearer than on admission- Patient calmed by 2:15am
[2021-01-16 06:17] LABS: Basophils # 0.1 10^3/uL (0.0-0.1); Basophils % 0.4 %; Eosinophils # 0.2 10^3/uL (0.0-0.8); Eosinophils % 1.1 %; Hematocrit 30.7 % (37.0-47.0); Hemoglobin 9.6 g/dL (11.5-15.3); Lymphocytes # 2.4 10^3/uL (0.8-4.8); Mean Corpuscular HGB Conc 31.3 g/dL (30.0-36.0); Mean Corpuscular Hemoglobin 26.5 pg (28.0-34.0); Mean Corpuscular Volume 84.8 fL (81-99); Mean Platelet Volume 9.6 fL (7.4-10.4); Monocytes # 1.8 10^3/uL (0.2-0.9); Neutrophils # 11.31 10^3/uL (1.8-7.7); Neutrophils % 70.4 %; Nucleated Red Blood Cells % 0 %; Platelet Count 537 10^3/cmm (130-400); Red Blood Count 3.62 10^6/uL (4.1-5.3); Red Cell Distribution Width 15.2 % (12.1-15.1)
[2021-01-16] MEDS: D5-NS 0.45% + KCL 20 mEq 20 MEQ/1,000 ML BAG 125 MEQ IV (06:17)
[2021-01-16 06:44] LABS: Blood Urea Nitrogen 13 mg/dL (6-20); Calcium 8.7 mg/dL (8.5-10.5); Carbon Dioxide 25 mmol/L (22-29); Chloride 91 mmol/L (98-107); Glucose 315 mg/dL (65-115); Osmolality Calculated 276 mOsm/kg (285-295); Sodium 127 mmol/L (136-145)
[2021-01-16] MEDS: aspirin 81 mg Chew Tablet PO (09:10)
[2021-01-16] MEDS: topiramate 25 mg Tablet 50 MG PO ×2 (09:10→20:57)
[2021-01-16] MEDS: ranolazine (12HR) 500 mg Tablet 1000 MG PO ×2 (09:10→20:57)
[2021-01-16] MEDS: ticagrelor 90 mg Tablet PO ×2 (09:11→20:57)
[2021-01-16] MEDS: ferrous sulfate EC 325 mg Tablet PO ×2 (09:11→18:18)
[2021-01-16] MEDS: midodrine 5 mg TABLET PO ×2 (09:11→18:18)
[2021-01-16] MEDS: pregabalin 150 mg Capsule PO ×2 (09:11→20:57)
[2021-01-16] MEDS: cyanocobalamin 1,000 mcg Tablet 500 MCG PO (09:11)
[2021-01-16] MEDS: isosorbide mononitrate ER 60 mg Tablet PO ×2 (09:11→20:57)
[2021-01-16] MEDS: duloxetine 60 mg Capsule PO (09:11)
[2021-01-16] MEDS: pantoprazole DR 40 mg Tablet PO (09:12)
[2021-01-16] MEDS: levETIRAcetam 500 mg Tablet PO ×2 (09:12→20:57)
[2021-01-16] MEDS: potassium chloride ER 20 mEq Tablet PO (09:12)
[2021-01-16] MEDS: folic acid 1 mg Tablet PO (09:12)
--- NOTE | 2021-01-16 09:56 | PM.PN ---
Subjective Subjective: Interval history: Patient was seen and examined this morning,she was complaining of chest pain and was asking for her pain medications namely tramadol as well as dialudid. Troponin trend is flat, oxygen requirement is at baseline.H/H has remained stable, No Fever, no cough. Tolerating diet well. Vitals/I&O/Wt Last Vital Signs Temp 98.4 F 01/16/21 06:57 Pulse 100 01/16/21 08:37 Resp 17 01/16/21 08:32 BP 108/73 01/16/21 06:57 Pulse Ox 93 01/16/21 08:32 01/15/21 01/16/21 01/16/21 22:59 06:59 14:59 Intake Total 1000 / 1000 Output Total 0 / 0 0 / 0 Balance 0 / 0 1000 / 1000 Weight last 48 hrs Weight 132.903 kg Physical Exam Narrative: EXAM NARRATIVE: Alert and Awake Const: COMMON NORMALS: patient oriented x3 HENMT: COMMON NORMALS: normocephalic and atraumatic HEAD & SCALP: normocephalic and atraumatic Chest: CHEST: Yes Symmetrical chest wall rise Resp: COMMON NORMALS: clear to auscultation bilaterally EFFORT & INSPECTION: Yes symmetric chest movement AUSCULTATION: clear to auscultation bilaterally Cardio: COMMON NORMALS: regular rate, regular rhythm, S1 normal heart sound present, S2 normal heart sound present, No gallops present (Cardio), No murmurs present (Cardio), No rub (Cardio) and Peripheral pulses 2+ throughout RATE: regular rate RHYTHM: regular rhythm HEART SOUNDS: S1 normal heart sound present and S2 normal heart sound present PERIPHERAL PULSES: Peripheral pulses 2+ throughout GI: COMMON NORMALS: Normal to inspection, nondistended, normoactive bowel sounds present, Soft to palpation, non-tender, No hepatosplenomegaly present and no masses AUSCULTATION: Yes normoactive bowel sounds PALPATION: Yes Soft to palpation and Yes No hepatosplenomegaly present RECTAL EXAM: deferred Extremity: NARRATIVE EXTREMITY EXAM: 2 + B/L L/E Edema Neuro: COMMON NORMALS: patient oriented x3 Data : 01/16/21 05:16 01/16/21 05:16 A&P Assessment and plan (1) Chest pain: CSA Troponin Trend: Chronically elevated without significant delta. EKG: SINUS RHYTHM WITH NONSPECIFIC ST & T-WAVE ABNORMAILITY. 2D Echo : : Normal left ventricular size and systolic function, EF 70 %. No regional wall motion abnormalities. Small to moderate pericardial effusion. No echocardiographic evidence of tamponade. Thickened noncoronary cusp of the aortic valve. Minimally thickened mitral valve. Continue : IMDUR 60 MG PO BID Ranexa 1000 mg po BID SL Nitro Tele Status: Acute (2) (HFpEF) heart failure with preserved ejection fraction: Currently compensated Lasix 40 mg I.V Daily KCL 20 MG PO Daily I/O Charting Daily weight K>4 , Mg > 2 Status: Acute (3) CAD (coronary artery disease): CAD x5, last stenting in April 2020. 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 Duo Nebs Supplemental Oxygen Status: Acute (6) Anemia: Likely Anemia of Chronic Disease. FOBT Negative Will Monitor CBC Status: Acute (7) Leukocytosis: No clinical signs of infections. 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
[2021-01-16] MEDS: FUROsemide 10 mg/mL SDV 4mL 40 MG IVP (11:21)
--- NOTE | 2021-01-16 12:05 | PC.CHAP ---
Pastoral Care Encounter/Spiritual Assessment Type of Contact [] Declined laborer pipeline visit [] Patient/Family/Request visit [] Outpatient visit [] Follow-up visit [] Physician referral [] Code/Alert [xx] Routine visit [] Staff referral [] Actively dying [] Patient sleeping [] Family support [] [] Out of room [] Palliative care [] [] Receiving care in room [] Pre-surgical visit [] Trauma [] Long length of stay [] ICU visit [] Other: Relational/Emotional Strength [xx] Patient feels connected with others/family/visitors/staff [] Distress [] Loneliness/isolation [] Abandonment Spirituality of Patient [xx] Person of Mary [] Attends Yarsani of their Mary [xx] Believes in Prayer [xx] Reads Bible or Christian materials [] There are Spiritual issues to be addressed Practice Physician Interventions [xx] Prayer [xx] Active listening [xx] Non-anxious presence [] Spiritual/emotional support [] Crisis/trauma care [] Spiritual counseling [] Bereavement support [] Provided bereavement packet [xx] Provided Bible/devotional materials [] Provided toy/stuffed animal, coloring book to patient or family member [] Provided Communion [] Anointing/[place] [] Salvation [xx] Completed spiritual assessment [] Other: Impact on Illness or Injury [] Angry [] Fearful [] Anxious [] Often cries [] Exhaustion [] Unable to work [xx] Unable to attend yazidi [] Unable to walk/stand [] Unable to read [] Unable to drive [] Unable to eat/drink [] Unable to sleep [] Unable to be with family [] Patient intubated [] Other: Summary Patient accepted [employer] devotional. Patient anticipates being in hospital through Tuesday which is not pleasing to her. She wants out so she can go to mormonism and be with her family. Time spent with patient 5 minutes
[2021-01-16] MEDS: ipratropium-albuterol 3 mL Neb INHALATION ×3 (12:16→20:03)
[2021-01-16] MEDS: enoxaparin 40 mg/0.4 mL Syringe SUBCUT (18:18)
--- NOTE | 2021-01-16 19:30 | PC.NURSE ---
Pt is diabetic and not on AccuCheck or insulin. Dr. Prather notified. Orders given to check glucose now. Glucose 425. Orders given to start moderate sliding scale ACHS.
[2021-01-16 20:07] LABS: Glucose Point of Care 425 mg/dL (70-110)
[2021-01-16] MEDS: quetiapine 25 mg Tablet 50 MG PO (20:57)
[2021-01-16] MEDS: atorvastatin 40 mg Tablet PO (20:57)
[2021-01-17] VITALS (19 sets, daily range): BP systolic 98–121; BP diastolic 56–79; PULSE 84–98; RESP 16–20; TEMP 36.4–36.8; O2SAT 93–97
[2021-01-17] MEDS: ipratropium-albuterol 3 mL Neb INHALATION ×6 (00:16→20:43)
[2021-01-17 06:26] LABS: Basophils # 0.1 10^3/uL (0.0-0.1); Basophils % 0.6 %; Eosinophils # 0.3 10^3/uL (0.0-0.8); Eosinophils % 2.2 %; Hematocrit 28.8 % (37.0-47.0); Hemoglobin 9.1 g/dL (11.5-15.3); Lymphocytes # 2.7 10^3/uL (0.8-4.8); Lymphocytes % 23.3 %; Mean Corpuscular HGB Conc 31.6 g/dL (30.0-36.0); Mean Corpuscular Hemoglobin 26.8 pg (28.0-34.0); Mean Corpuscular Volume 84.7 fL (81-99); Mean Platelet Volume 9.2 fL (7.4-10.4); Monocytes # 1.4 10^3/uL (0.2-0.9); Monocytes % 11.8 %; Neutrophils # 7.05 10^3/uL (1.8-7.7); Neutrophils % 60.4 %; Nucleated Red Blood Cells % 0 %; Platelet Count 514 10^3/cmm (130-400); Red Cell Distribution Width 15.3 % (12.1-15.1); White Blood Count 11.7 10^3/uL (4.0-10.0)
[2021-01-17 06:44] LABS: Anion Gap 12.7 (5-19); Blood Urea Nitrogen 10 mg/dL (6-20); Calcium 8.9 mg/dL (8.5-10.5); Carbon Dioxide 27 mmol/L (22-29); Chloride 101 mmol/L (98-107); Creatinine Clr Calc Pharmacy 149.5454; Glomerular Filtration Rate 104.6 mL/min (90-130); Glucose 193 mg/dL (65-115); Osmolality Calculated 288 mOsm/kg (285-295); Potassium 3.7 mmol/L (3.5-5.1); Sodium 137 mmol/L (136-145)
[2021-01-17 06:48] LABS: Glucose Point of Care 217 mg/dL (70-110)
[2021-01-17] MEDS: cyanocobalamin 1,000 mcg Tablet 500 MCG PO (09:03)
[2021-01-17] MEDS: pregabalin 150 mg Capsule PO ×2 (09:03→21:36)
[2021-01-17] MEDS: aspirin 81 mg Chew Tablet PO (09:03)
[2021-01-17] MEDS: folic acid 1 mg Tablet PO (09:03)
[2021-01-17] MEDS: midodrine 5 mg TABLET PO ×2 (09:03→18:46)
[2021-01-17] MEDS: ferrous sulfate EC 325 mg Tablet PO ×2 (09:03→18:45)
[2021-01-17] MEDS: pantoprazole DR 40 mg Tablet PO (09:04)
[2021-01-17] MEDS: topiramate 25 mg Tablet 50 MG PO ×2 (09:04→21:40)
[2021-01-17] MEDS: isosorbide mononitrate ER 60 mg Tablet PO ×2 (09:04→21:36)
[2021-01-17] MEDS: ticagrelor 90 mg Tablet PO ×2 (09:04→21:36)
[2021-01-17] MEDS: potassium chloride ER 20 mEq Tablet PO (09:05)
[2021-01-17] MEDS: levETIRAcetam 500 mg Tablet PO ×2 (09:06→21:36)
[2021-01-17] MEDS: duloxetine 60 mg Capsule PO (09:06)
[2021-01-17] MEDS: FUROsemide 10 mg/mL SDV 4mL 40 MG IVP (09:20)
[2021-01-17] MEDS: ranolazine (12HR) 500 mg Tablet 1000 MG PO ×2 (09:36→21:40)
[2021-01-17] MEDS: TRAMadol 50 mg Tablet PO (09:37)
[2021-01-17 11:58] LABS: Glucose Point of Care 316 mg/dL (70-110)
[2021-01-17 16:50] LABS: Glucose Point of Care 266 mg/dL (70-110)
--- NOTE | 2021-01-17 17:34 | P.PN_ITS ---
Subjective Subjective: Interval history: Patient was seen and examined this morning,no acute event overnight. Deny any chest pain,sob,nausea,vomitting.B/L L/E Swelling coming down. Making good urine with I.V Lasix. Leukocytosis is trending down, blood pressure has remained stable, H/H has remained stable. No fever, cough,sob. Vitals/I&O/Wt Last Vital Signs Temp 97.7 F 01/17/21 15:49 Pulse 90 01/17/21 15:49 Resp 18 01/17/21 15:49 BP 121/79 01/17/21 15:49 Pulse Ox 96 01/17/21 15:49 01/17/21 01/17/21 01/17/21 06:59 14:59 22:59 Intake Total 480 / 480 Output Total 1100 / 3600 Balance -1100 / -1582.917 480 / 480 Physical Exam Narrative: EXAM NARRATIVE: Alert and Awake Const: COMMON NORMALS: patient oriented x3 HENMT: COMMON NORMALS: normocephalic and atraumatic HEAD & SCALP: normocephalic and atraumatic Chest: CHEST: Yes Symmetrical chest wall rise Resp: COMMON NORMALS: clear to auscultation bilaterally EFFORT & INSPECTION : Yes symmetric chest movement AUSCULTATION: clear to auscultation bilaterally Cardio: COMMON NORMALS: regular rate, regular rhythm, S1 normal heart sound present, S2 normal heart sound present, No gallops present (Cardio), No murmurs present (Cardio), No rub (Cardio) and Peripheral pulses 2+ throughout RATE: regular rate RHYTHM: regular rhythm HEART SOUNDS: S1 normal heart sound present and S2 normal heart sound present PERIPHERAL PULSES: Peripheral pulses 2+ throughout GI: COMMON NORMALS: Normal to inspection, nondistended, normoactive bowel sounds present, Soft to palpation, non-tender, No hepatosplenomegaly present and no masses AUSCULTATION: Yes normoactive bowel sounds PALPATION: Yes Soft to palpation and Yes No hepatosplenomegaly present RECTAL EXAM: deferred Extremity: NARRATIVE EXTREMITY EXAM: 2 + B/L L/E Edema Neuro: COMMON NORMALS: patient oriented x3 Data : 01/17/21 05:42 01/17/21 05:42 A&P Assessment and plan (1) Chest pain: CSA Troponin Trend: Chronically elevated without significant delta. EKG: SINUS RHYTHM WITH NONSPECIFIC ST & T-WAVE ABNORMAILITY. 2D Echo : : Normal left ventricular size and systolic function, EF 70 %. No regional wall motion abnormalities. Small to moderate pericardial effusion. No echocardiographic evidence of tamponade. Thickened noncoronary cusp of the aortic valve. Minimally thickened mitral valve. Continue : IMDUR 60 MG PO BID Ranexa 1000 mg po BID SL Nitro Tele Status: Acute (2) (HFpEF) heart failure with preserved ejection fraction: Currently compensated Lasix 40 mg I.V Daily KCL 20 MG PO Daily I/O Charting Daily weight K>4 , Mg > 2 Status: Acute (3) CAD (coronary artery disease): CAD x5, last stenting in April 2020. 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 Duo Nebs Supplemental Oxygen Status: Acute (6) Anemia: Likely Anemia of Chronic Disease. FOBT Negative Will Monitor CBC Status: Acute (7) Leukocytosis: No clinical signs of infections. Blood Culture Urine Culture Xray chest Lactic Acid : Procalcitonin Hold Abx s for now Status: Acute Qualifiers: Leukocytosis type: unspecified Qualified Code(s): D72.829 - Elevated white blood cell count, unspecified Additional A&P Information Code Status :Full code DVT PPX: On Lovenox Diposition : Home Attestations Medical Necessity Statement*: Patient needs to be in hospital for the m anagement of chest pain,sob, leukocytosis, hypotension. 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
[2021-01-17] MEDS: enoxaparin 40 mg/0.4 mL Syringe SUBCUT (18:45)
--- NOTE | 2021-01-17 20:12 | PC.NURSE ---
shift assessment no changes this shift.
[2021-01-17 21:21] LABS: Glucose Point of Care 304 mg/dL (70-110)
[2021-01-17] MEDS: atorvastatin 40 mg Tablet PO (21:36)
[2021-01-17] MEDS: quetiapine 25 mg Tablet 50 MG PO (21:36)
[2021-01-18] VITALS (12 sets, daily range): BP systolic 74–136; BP diastolic 52–84; PULSE 61–95; RESP 17–20; TEMP 36.4–36.8; O2SAT 91–98
[2021-01-18] MEDS: ipratropium-albuterol 3 mL Neb INHALATION ×3 (00:13→08:04)
[2021-01-18 06:17] LABS: Basophils # 0.1 10^3/uL (0.0-0.1); Basophils % 0.5 %; Eosinophils # 0.4 10^3/uL (0.0-0.8); Eosinophils % 3.1 %; Hemoglobin 8.8 g/dL (11.5-15.3); Lymphocytes # 2.8 10^3/uL (0.8-4.8); Lymphocytes % 20.1 %; Mean Corpuscular HGB Conc 31.4 g/dL (30.0-36.0); Mean Corpuscular Hemoglobin 26.4 pg (28.0-34.0); Mean Corpuscular Volume 84.1 fL (81-99); Mean Platelet Volume 9.3 fL (7.4-10.4); Monocytes # 1.5 10^3/uL (0.2-0.9); Monocytes % 10.8 %; Neutrophils # 8.73 10^3/uL (1.8-7.7); Neutrophils % 63.6 %; Nucleated Red Blood Cells % 0 %; Platelet Count 594 10^3/cmm (130-400); Red Blood Count 3.33 10^6/uL (4.1-5.3); Red Cell Distribution Width 15.3 % (12.1-15.1); White Blood Count 13.7 10^3/uL (4.0-10.0)
[2021-01-18 06:36] LABS: Anion Gap 11.9 (5-19); Blood Urea Nitrogen 10 mg/dL (6-20); Calcium 8.9 mg/dL (8.5-10.5); Carbon Dioxide 24 mmol/L (22-29); Chloride 102 mmol/L (98-107); Creatinine Clr Calc Pharmacy 149.5454; Glomerular Filtration Rate 104.6 mL/min (90-130); Glucose 141 mg/dL (65-115); Osmolality Calculated 279 mOsm/kg (285-295); Potassium 3.9 mmol/L (3.5-5.1); Sodium 134 mmol/L (136-145)
[2021-01-18 06:51] LABS: Glucose Point of Care 212 mg/dL (70-110)
--- NOTE | 2021-01-18 08:31 | PC.SOCIAL ---
*IMM* Patient received IMM. Initialled in chart, PT received a copy
[2021-01-18] MEDS: pregabalin 150 mg Capsule PO (08:57)
[2021-01-18] MEDS: aspirin 81 mg Chew Tablet PO (08:57)
[2021-01-18] MEDS: topiramate 25 mg Tablet 50 MG PO (08:57)
[2021-01-18] MEDS: duloxetine 60 mg Capsule PO (08:57)
[2021-01-18] MEDS: ranolazine (12HR) 500 mg Tablet 1000 MG PO (08:57)
[2021-01-18] MEDS: levETIRAcetam 500 mg Tablet PO (08:57)
[2021-01-18] MEDS: folic acid 1 mg Tablet PO (08:57)
[2021-01-18] MEDS: cyanocobalamin 1,000 mcg Tablet 500 MCG PO (08:57)
[2021-01-18] MEDS: potassium chloride ER 20 mEq Tablet PO (08:57)
[2021-01-18] MEDS: isosorbide mononitrate ER 60 mg Tablet PO (08:57)
[2021-01-18] MEDS: midodrine 5 mg TABLET PO (08:57)
[2021-01-18] MEDS: pantoprazole DR 40 mg Tablet PO (08:58)
[2021-01-18] MEDS: ticagrelor 90 mg Tablet PO (08:58)
[2021-01-18] MEDS: ferrous sulfate EC 325 mg Tablet PO (08:58)
[2021-01-18] MEDS: TRAMadol 50 mg Tablet PO (10:31)
--- NOTE | 2021-01-18 10:49 | P.DS_ITS ---
Discharge Providers Date of Admission: 01/15/21 16:54 Date of Discharge: January 18, 2021 Attending Provider at Admission: Emeterio Prather MD Attending Provider at Discharge: Emeterio Prather MD Primary Care Provider: CHARLOTTE Pugh Diagnoses at Discharge Discharge Diagnosis (1) Chest pain: Status: Chronic (2) (HFpEF) heart failure with preserved ejection fraction: Status: Chronic (3) CAD (coronary artery disease): Status: Chronic (4) Type 2 diabetes mellitus: Status: Chronic Qualifiers: Diabetes mellitus complication status: with hyperglycemia Diabetes mellitus vice president process insulin use: with chcf use Qualified Code(s): E11.65 - Type 2 diabetes mellitus with hyperglycemia; Z79.4 - penitentiary (current) use of insulin (5) COPD (chronic obstructive pulmonary disease): Status: Acute (6) Anemia: Status: Chronic (7) Leukocytosis: Status: Chronic Qualifiers: Leukocytosis type: unspecified Qualified Code(s): D72.829 - Elevated white blood cell count, unspecified Reason for Visit Reason for Visit: chest pain, trouble breathing Hospital Course Hospital Course Mayra Ascencio is a 55 Y O F with past medical history of CAD x5, last stenting in April 2020, COPD, on 2 Ls home oxygen, current smoker, HFpEF, insulin- dependent type 2 diabetes mellitus, hypertension, hyperlipidemia, fibromyalgia, on chronic opiate therapy, 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 She underwent removal of the joint components with placement of an antibiotic spacer on September 30 and then again repeat I&D on October 07 for persistent leukocytosis and signs of local infection. OR cultures returned with MRSA. She is completing a 6-week course of IV antibiotics with vancomycin at [facility] between October 07 to November 18, 2020.She came in today with c/o chest pain as well as SOB.Describe the chest pain as substernal 4/10 in severity, non radiating, dull.SOB present initailly in the ER has currently improved, she is at her baseline oxygen requirement of 2ls.Deny any cough,fever,chills,nausea,vomiting. Patient was also found to be hypotensive in ER and there was also some concern regarding her low Hb. FOBT was negative. She was worked up for the above mention complain. EKG : SINUS RHYTHM WITH NONSPECIFIC ST & T-WAVE ABNORMALITY. XR chest 1V portable: Diffuse bilateral patchy opacities are still present in both lungs. 2D Echo : : Normal left ventricular size and systolic function, EF 70 %. No regional wall motion abnormalities. Small to moderate pericardial effusion. No echocardiographic evidence of tamponade. Thickened noncoronary cusp of the aortic valve. Minimally thickened mitral valve. Pertinent labs : Troponin T : Without Significant Delta : ABG: Ph: 7.47, PCO2: 38, PO2: 73, FIO2: 28 % WBC : 13.7 H/H: 08/16 PLT: 522. She was admitted for the management of Chronic stable angina she was continued of IMDUR 60 MG PO BID, Ranexa 1000 mg po BID ,SL Nitro.along with her other pain medications which includes tramadol as well as dialudid. for her HFpEF it was compensated she was continued on Lasix 40 mg I.V Daily KCL 20 MG PO Daily.She was discharged on her home lasix regimen. For her h/o CAD (coronary artery disease):s/p stent she was continued on Brillanta 90 mg po BID, Aspirin 81 mg po daily , Lipitor 40 mg po daily. H/H remained stable there was no BRBPR,NAPOLEON,Hematuria,no need for transfusion.For her chronic hypotension she was continued on midodorine, she denied any lightheadedness,tachycardia or any other symptoms. She will continue to follow cardiology,pcp,I.D and as outpatient. Patient responded well to the above medical management and was discharged in stable condition to home. Physical Exam Narrative: EXAM NARRATIVE: Alert and Awake Const: COMMON NORMALS: patient oriented x3 HENMT: COMMON NORMALS: normocephalic and atraumatic HEAD & SCALP: normocephalic and atraumatic Chest: CHEST: Yes Symmetrical chest wall rise Resp: COMMON NORMALS: clear to auscultation bilaterally EFFORT & INSPECTION: Yes symmetric chest movement AUSCULTATION: clear to auscultation bilaterally Cardio: COMMON NORMALS: regular rate, regular rhythm, S1 normal heart sound present, S2 normal heart sound present, No gallops present (Cardio), No murmurs present (Cardio), No rub (Cardio) and Peripheral pulses 2+ throughout RATE: regular rate RHYTHM: regular rhythm HEART SOUNDS: S1 normal heart sound present and S2 normal heart sound present PERIPHERAL PULSES: Peripheral pulses 2+ throughout GI: COMMON NORMALS: Normal to inspection, nondistended, normoactive bowel sounds present, Soft to palpation, non-tender, No hepatosplenomegaly present and no masses AUSCULTATION: Yes normoactive bowel sounds PALPATION: Yes Soft to palpation and Yes No hepatosplenomegaly present RECTAL EXAM: deferred Extremity: NARRATIVE EXTREMITY EXAM: 1 + B/L L/E Edema Neuro: COMMON NORMALS: patient oriented x3 Discharge Data Data Completed and Pending: Completed Studies During Hospitalization Category Date Time Status XR chest 1V calin ble 95233 Stat Exams 01/15/21 13:39 Completed Pending at discharge Category Date Time Status Immunochemical Fe joana OCB Routine Lab 01/15/21 15:36 Uncollected Labs from last 24 hours 01/18/21 01/18/21 01/18/21 06:42 05:50 05:50 WBC 13.7 H RBC 3.33 L Hgb 8.8 L Hct 28.0 L MCV 84.1 MCH 26.4 L MCHC 31.4 RDW 15.3 H Plt Count 594 H MPV 9.3 Neut % (Auto) 63.6 Lymph % (Auto) 20.1 [place] % (Auto) 10.8 Eos % (Auto) 3.1 Baso % (Auto) 0.5 Neut # (Auto) 8.73 H Lymph # (Auto) 2.8 [place] # (Auto) 1.5 H Eos # (Auto) 0.4 Baso # (Auto) 0.1 Nucleated RBC % (a uto) 0 Nucleated RBCs # 0.0 Sodium 134 L Potassium 3.9 Chloride 102 Carbon Dioxide 24 Anion Gap 11.9 BUN 10 Creatinine 0.6 GFR Calculation 104.6 Glucose 141 H POC Glucose 212 H Calculated Osmolal ity 279 L Calcium 8.9 01/17/21 01/17/21 01/17/21 21:08 16:33 11:25 WBC RBC Hgb Hct MCV MCH MCHC RDW Plt Count MPV Neut % (Auto) Lymph % (Auto) [place] % (Auto) Eos % (Auto) Baso % (Auto) Neut # (Auto) Lymph # (Auto) [place] # (Auto) Eos # (Auto) Baso # (Auto) Nucleated RBC % (a uto) Nucleated RBCs # Sodium Potassium Chloride Carbon Dioxide Anion Gap BUN Creatinine GFR Calculation Glucose POC Glucose 304 H 266 H 316 H Calculated Osmolal ity Calcium Vitals: Last Vital Signs Temp 97.5 F L 01/18/21 08:00 Pulse 93 01/18/21 08:09 Resp 17 01/18/21 08:04 BP 136/84 01/18/21 09:08 Pulse Ox 95 01/18/21 08:04 Discharge Plan Discharge Patient Disposition: Home Condition: Stable Prescriptions: Continued budesonide-formoterol [Symbicort] 160-4.5 mcg/actuation HFA aerosol inhaler 2 puff INHALATION Q12H Qty: 10.2 RF: 2 albuterol sulfate [Ventolin HFA] 90 mcg/actuation HFA aerosol inhaler 2 puff INHALATION QID PRN (Reason: shortness of breath or wheezing) 30 Days Qty: 6.7 RF: 2 cyclobenzaprine 10 mg tablet 10 mg PO TID PRN (Reason: muscle spasm) 30 Days Qty: 90 RF: 0 duloxetine 60 mg capsule, delayed rel sprinkle 60 mg PO DAILY@08 30 Days Qty: 30 RF: 0 Ultram 50 mg tablet 50 mg .ROUTE .5 times a day PRN (Reason: pain) 30 Days Qty: 150 RF: 0 topiramate 50 mg tablet 50 mg PO BID@ RF: 0 pantoprazole [Protonix] 40 mg tablet,delayed release (DR/EC) 40 mg PO DAILY@08 RF: 0 lidocaine 5 % adhesive patch,medicated 1 patch topical DAILY Qty: 30 RF: 2 nitroglycerin 0.4 mg tablet, sublingual See Rx Instructions .ROUTE .COMPLEX Qty: 25 RF: 3 hydromorphone 2 mg tablet 2 mg PO TID PRN (Reason: pain) 30 Days Qty: 90 RF: 0 Levemir FlexTouch U-100 Insuln 100 unit/mL (3 mL) insulin pen 20 unit SUBCUT DAILY@08 Qty: 15 RF: 0 atorvastatin 40 mg tablet 40 mg PO DAILY@21 RF: 0 levetiracetam [Keppra] 500 mg Tablet 500 mg PO BID@, RF: 0 quetiapine [Seroquel] 50 mg tablet 50 mg PO BEDTIME@21 RF: 0 ranolazine 500 mg tablet extended release 12 hr 1,000 mg PO BID@ RF: 0 Brilinta 90 mg tablet 90 mg PO BID@ RF: 0 aspirin 81 mg Tablet,Chewable 81 mg PO DAILY@08 RF: 0 acetaminophen 325 mg Tablet 650 mg PO Q6H PRN (Reason: Mild/Mod Pain Or Temp >/= 101) Qty: 30 RF: 0 cyanocobalamin (vitamin B-12) [Vitamin B-12] 1,000 mcg Tablet 500 mcg PO DAILY Qty: 30 RF: 0 folic acid 1 mg Tablet 1 mg PO DAILY Qty: 30 RF: 0 ferrous sulfate 325 mg (65 mg iron) Tablet,Delayed Release (Dr/Ec) 325 mg PO BIDWM Qty: 60 RF: 0 potassium chloride 20 mEq Tablet Extended Release 20 meq PO DAILY@08 RF: 0 furosemide [Lasix] 40 mg Tablet 40 mg PO DAILY PRN (Reason: Edema) Qty: 0 RF: 0 Santyl 250 unit/gram Ointment 1 applic TOPICAL DAILY RF: 0 midodrine 5 mg tablet 5 mg PO BID RF: 0 isosorbide mononitrate 60 mg tablet extended release 24 hr 60 mg PO BID@ RF: 0 ergocalciferol (vitamin D2) 1,250 mcg (50,000 unit) capsule 1,250 mcg PO Q7D RF: 0 Lyrica 150 mg capsule 150 mg PO BID@ RF: 0 Discharge Orders: Discharge Order (Routine); Ordered 01/18/21 Ordered By: Emeterio Prather Referrals: Genevieve Crespo FNP-C [Primary Care Provider] - 4-7 days (Please call the office first thing Tuesday morning at [phone] to schedule an appointment for 4 to 7 days.) Discharge Diet: Diabetic Discharge Activity: Resume usual activity Patient Instructions: Chest Pain (GEN), Chronic Obstructive Pulmonary Disease (GEN), COPD Stoplight Discharge Attestations Time Spent in Discharge Care*: less than 30 min Specific Discharge Activities: educating patient, educating and/or supporting family/caregiver, discussing with pcp/other providers, discussing with casework specialist/social workers/dc planners, documenting/other paperwork and evaluating patient/reviewing data Status at Discharge: Cognitive status at discharge: mildly impaired cognition , Behavioral status at discharge: cooperative , Functional status at discharge: independent ambulation Overall status at discharge: patient is back to baseline Quality Metrics Clinical Quality Measures During this hospital stay, did patient experience: None Coding Level of Care Code Acute Chg FW DC note Diagnoses Chest pain R07.9 (HFpEF) heart failure with preserved ejection fraction I50.30 CAD (coronary artery disease) I25.10 Type 2 diabetes mellitus E11.65; Z79.4 Diabetes mellitus complication status: with hyperglycemia Diabetes mellitus chcf insulin use: with vice president process use COPD (chronic obstructive pulmonary disease) J44.9 Anemia D64.9 Leukocytosis D72.829 Leukocytosis type: unspecified
[2021-01-18 11:04] LABS: Glucose Point of Care 280 mg/dL (70-110)
--- NOTE | 2021-01-18 12:32 | PC.NURSE ---
discharge instructions gone over with pt and significant other and mother on the phone. COPD stoplight gone over and pt verbalized understanding. all questions and concerns answered, if any further questions instructions on how to contact nurse was given. pt taken down by this nurse by wheelchair, iv removed and intact.
== END 2021-01-18 11:30 | disposition home health service (06) | DRG 313 ==
LOC: ER 13:49 → MEDSURG 17:18
PROVIDERS: Nurse Practitioner Family; Admitting Provider Internal Medicine; Emergency Provider Family Medicine; PCP Nurse Practitioner Family; Visit Provider Internal Medicine
DX: R07.9 Chest pain, unspecified (principal); I50.32 Chronic diastolic (congestive) heart failure; Z68.42 Body mass index [BMI] 45.0-49.9, adult; R06.02 Shortness of breath; D64.9 Anemia, unspecified; D72.829 Elevated white blood cell count, unspecified; E11.65 Type 2 diabetes mellitus with hyperglycemia; I95.9 Hypotension, unspecified; I25.10 Atherosclerotic heart disease of native coronary artery without angina pectoris; J44.9 Chronic obstructive pulmonary disease, unspecified; I11.0 Hypertensive heart disease with heart failure; E11.42 Type 2 diabetes mellitus with diabetic polyneuropathy; E78.5 Hyperlipidemia, unspecified; M79.7 Fibromyalgia; F17.210 Nicotine dependence, cigarettes, uncomplicated; M47.899 Other spondylosis, site unspecified; E55.9 Vitamin D deficiency, unspecified; E66.9 Obesity, unspecified; Z96.652 Presence of left artificial knee joint; Z79.02 Long term (current) use of antithrombotics/antiplatelets; Z79.82 Long term (current) use of aspirin; Z79.4 Long term (current) use of insulin; Z79.891 Long term (current) use of opiate analgesic; Z99.81 Dependence on supplemental oxygen; Z95.5 Presence of coronary angioplasty implant and graft; Z86.14 Personal history of Methicillin resistant Staphylococcus aureus infection; Z86.73 Personal history of transient ischemic attack (TIA), and cerebral infarction without residual deficits; I25.2 Old myocardial infarction
CPT/HCPCS: 11042; 36415; 36416; 36600; 71045; 80048; 80051; 80053; 82330; 82805; 82962; 84484; 85014; 85018; 85025; 93005; 94640; 96361; 96365; 96366; 96372; 99285; G0378; J1650; J1815; J1940; J3535; J7030

== ENCOUNTER 2021-01-19 10:11 | Outpatient (CLI) | payer MEDICARE, MEDICAID, SELFPAY | END 2021-01-19 10:12 | disposition home or self-care (01) | LOC: WOUND 10:13 | PROVIDERS: PCP Nurse Practitioner Family; Visit Provider Nurse Practitioner Family | DX: E11.621 Type 2 diabetes mellitus with foot ulcer (principal); L97.412 Non-pressure chronic ulcer of right heel and midfoot with fat layer exposed; L89.323 Pressure ulcer of left buttock, stage 3 | CPT/HCPCS: 97597 ==

== ENCOUNTER → 2021-01-22 13:10 | Outpatient (BNVA) | payer MEDICARE, MEDICAID, SELFPAY | PROVIDERS: PCP Nurse Practitioner Family; Visit Provider Anesthesiology | DX: G89.29 Other chronic pain (principal); M51.06 Intervertebral disc disorders with myelopathy, lumbar region; M47.819 Spondylosis without myelopathy or radiculopathy, site unspecified; M47.817 Spondylosis without myelopathy or radiculopathy, lumbosacral region; M17.12 Unilateral primary osteoarthritis, left knee; F17.210 Nicotine dependence, cigarettes, uncomplicated; Z79.891 Long term (current) use of opiate analgesic | CPT/HCPCS: 99214 ==

== ENCOUNTER 2021-01-23 14:44 | Emergency (ER) | payer MEDICARE, MEDICAID, SELFPAY ==
[2021-01-23 14:57] VITALS: BP 105/62; PULSE 106; RESP 18; TEMP 36.7; O2SAT 92; BMI 38.2
--- NOTE | 2021-01-23 15:33 | ED_ITS ---
HPI - Extremity Problem General: Chief complaint: Extremity Injury, Lower Stated complaint: SWELLING IN FEET AND LEGS Time Seen by Provider: 01/23/21 15:22 History of Present Illness: HPI Narrative: Patient complained about swelling in feet and legs which have been longstanding. She did start Lasix yesterday and she does not feel like she is peeing as much as she should. Said her feet and legs hurt. Which is consistent with previous history and recent discharge from the hospital. She denies any shortness of breath. She does have a ulcer on her right heel in her buttock which has been there for quite a while there is no redness swelling or drainage from those and she is changing the dressing on the heel. MD Complaint: extremity swelling Onset (ago): year(s) Pain Consistency: constant Associated symptoms: Reports no associated symptoms; Deny chest pain, fever(s) or rash Context: recent illness Review of Systems Narrative: Was prescribed 40 mg Lasix twice daily and she just started that last night. Const: Denies: fever(s), chills or body aches Eyes: Denies: change in vision or blurry vision ENMT: Denies: throat pain or nasal congestion Card: Reports: edema and swelling of feet/ankles; Denies: chest pain or dyspnea on exertion Resp: Denies: dyspnea, productive cough or non-productive cough GI: Denies: abdominal pain, nausea or vomiting : Reports: other (Decreased output) Musc: Denies: extremity pain Skin/Breast: Reports: other (Chronic skin breakdown right heel and buttock); Denies: rash Neuro: Denies: headache(s) Psych: Denies: anxiety or depression Xavier/Lymph: Denies: easy bruising PFS ED PFSH: Medical History (Updated 01/23/21 @ 15:53 by KATHY Sadler) (HFpEF) heart failure with preserved ejection fraction Anemia Atherosclerotic heart disease of [place] coronary artery with other forms of angina pectoris Atherosclerotic heart disease of [place] coronary artery with unspecified angina pectoris CAD (coronary artery disease) Chest pain Chest pain, midsternal Chronic congestive heart failure Chronic left-sided low back pain Chronic obstructive pulmonary disease, unspecified Chronic pain of left knee Congestive heart failure COPD (chronic obstructive pulmonary disease) Coronary artery disease due to type 2 diabetes mellitus Current every day smoker CVA (cerebral vascular accident) Diabetes type 2, uncontrolled Dyslipidemia Elevated troponin Encounter for long-term opiate analgesic use Essential hypertension Fibromyalgia Fibromyalgia, primary Hyperlipidemia, mixed Insomnia Intervertebral disc disorder of lumbar region with myelopathy Leukocytosis Low back pain radiating to both legs Lumbosacral spondylosis without myelopathy NSTEMI (non-ST elevated myocardial infarction) Thought to be secondary to plaque rupture. Angiogram July 04 no flow- limiting lesions, or restenosis of previous stent from April 2020 Obesity (BMI 35.0-39.9 without comorbidity) Opioid contract exists Osteoarthritis of spine at multiple levels Type 2 diabetes mellitus Type 2 diabetes mellitus with diabetic autonomic (poly)neuropathy Vitamin D deficiency Surgical History History of arthroscopic surgery of elbow BILATERAL History of coronary angiogram Angiogram April 2020 with 90% circumflex lesion, drug-eluting stent placed by Dr. Jerome S/p bilateral carpal tunnel release S/P hysterectomy S/P knee surgery RIGHT S/P lumbar fusion DR. Shreya ZAYAS IN [place], [place] L4-L5, L5-S1 Status post left knee replacement Status post lumbar laminectomy Family History Other CAD (coronary artery disease) Cancer Diabetes Social History (Updated 01/22/21 @ 13:58 by Ruby Mcdonnell LPN) Smoking and tobacco status: current every day smoker cigarettes [ Other cigarette details: PER PATIENT REPORT ] Second hand smoke exposure: Yes Smoking risk assessment/counseling performed?: Yes Alcohol intake: former Desire information about alcohol rehabilitation?: No Counseling given: No Desire information about substance/drug rehabilitation?: No Counseling given: No Caregiver/support person: No Lives independently: Yes Household members: family and other Details: son Housing: Manufactured/Mobile home Marital status: Unknown Marital status details: She and son state she is not service: No Current occupational status: unemployed Pets and animals: Yes History of recent travel: No Current gender identity: Female Physical Exam Const: COMMON NORMALS: no acute distress GENERAL APPEARANCE: cooperative Resp: COMMON NORMALS: normal respiratory effort and No use of accessory muscles AUSCULTATION: diminished lung sounds Cardio: OTHER: Edema to both lower extremities knee down pitting 2+ Psych: COMMON NORMALS: mental status grossly normal Skin: OTHER: Right heel dressing intact no drainage no erythema redness noted Course Vital Signs: Vital signs: Vital Signs Temperature 98.1 F 01/23/21 14:57 Pulse Rate 106 H 01/23/21 14:57 Respiratory Rate 18 01/23/21 14:57 Blood Pressure 105/62 01/23/21 14:57 Pulse Oximetry 92 01/23/21 14:57 MDM - Extremity (Nontraumatic) MDM Narrative: Medical decision making narrative: Patient complain bilateral lower extremity edema that has not changed over the last few months. She is desiring pain medication to help with the discomfort. She said her Lasix is not working but she is a started that last night. She said she is not had any weight change that she is aware of. Appears that she has chronic stable lower extremity edema. Was started on Lasix and has not gave it a time to fully work. Patient in no distress at all today. We will try FUAD JOHN to jumpstart this and encouraged her to give her p.o. Lasix time to work. Encourage her to quit smoking and follow-up Dr. Coats as soon as possible. Discharge Plan Discharge Patient Disposition: Home Clinical Impression: Lower extremity edema Condition: Stable Prescriptions: No Action budesonide-formoterol [Symbicort] 160-4.5 mcg/actuation HFA aerosol inhaler 2 puff INHALATION Q12H Qty: 10.2 RF: 2 albuterol sulfate [Ventolin HFA] 90 mcg/actuation HFA aerosol inhaler 2 puff INHALATION QID PRN (Reason: shortness of breath or wheezing) 30 Days Qty: 6.7 RF: 2 hydromorphone 2 mg tablet 2 mg PO TID 30 Days Qty: 90 RF: 0 hydromorphone 2 mg tablet 2 mg PO TID PRN (Reason: pain) 30 Days Qty: 90 RF: 0 Lyrica 150 mg capsule 150 mg PO BID 30 Days Qty: 60 RF: 1 cyclobenzaprine 10 mg tablet 10 mg PO TID PRN (Reason: muscle spasm) 30 Days Qty: 90 RF: 1 duloxetine 60 mg capsule, delayed rel sprinkle 60 mg PO DAILY@08 30 Days Qty: 30 RF: 1 Ultram 50 mg tablet 50 mg .ROUTE .5 times a day PRN (Reason: pain) 30 Days Qty: 150 RF: 1 topiramate 50 mg tablet 50 mg PO BID@08,21 RF: 0 pantoprazole [Protonix] 40 mg tablet,delayed release (DR/EC) 40 mg PO DAILY@08 RF: 0 lidocaine 5 % adhesive patch,medicated 1 patch topical DAILY Qty: 30 RF: 2 nitroglycerin 0.4 mg tablet, sublingual See Rx Instructions .ROUTE .COMPLEX Qty: 25 RF: 3 Levemir FlexTouch U-100 Insuln 100 unit/mL (3 mL) insulin pen 20 unit SUBCUT DAILY@08 Qty: 15 RF: 0 atorvastatin 40 mg tablet 40 mg PO DAILY@21 RF: 0 levetiracetam [Keppra] 500 mg Tablet 500 mg PO BID@ RF: 0 quetiapine [Seroquel] 50 mg tablet 50 mg PO BEDTIME@ RF: 0 ranolazine 500 mg tablet extended release 12 hr 1,000 mg PO BID@ RF: 0 Brilinta 90 mg tablet 90 mg PO BID@ RF: 0 aspirin 81 mg Tablet,Chewable 81 mg PO DAILY@08 RF: 0 acetaminophen 325 mg Tablet 650 mg PO Q6H PRN (Reason: Mild/Mod Pain Or Temp >/= 101) Qty: 30 RF: 0 cyanocobalamin (vitamin B-12) [Vitamin B-12] 1,000 mcg Tablet 500 mcg PO DAILY Qty: 30 RF: 0 folic acid 1 mg Tablet 1 mg PO DAILY Qty: 30 RF: 0 ferrous sulfate 325 mg (65 mg iron) Tablet,Delayed Release (Dr/Ec) 325 mg PO BIDWM Qty: 60 RF: 0 potassium chloride 20 mEq Tablet Extended Release 20 meq PO DAILY@08 RF: 0 furosemide [Lasix] 40 mg Tablet 40 mg PO DAILY PRN (Reason: Edema) Qty: 0 RF: 0 Santyl 250 unit/gram Ointment 1 applic TOPICAL DAILY RF: 0 midodrine 5 mg tablet 5 mg PO BID RF: 0 isosorbide mononitrate 60 mg tablet extended release 24 hr 60 mg PO BID@ RF: 0 ergocalciferol (vitamin D2) 1,250 mcg (50,000 unit) capsule 1,250 mcg PO Q7D RF: 0 Discharge Orders: Discharge ED (Routine); Ordered 01/23/21 Ordered By: Rory Ochoa Referrals: Naomy Goodwin FNP [Primary Care Provider] - Discharge Diet: Usual diet Discharge Activity: Resume usual activity Patient Instructions: Leg Edema (ED) Activity Restrictions/Additional Instructions: Follow-up with medical provider as directed. Take medications as prescribed. Return to the ER or your medical provider if condition worsens. Please read and understand discharge instructions. If any questions ask please. Give Lasix times work. Keep legs elevated above the heart. Follow-up Dr. Coats first next week. Coding Level of Care Code ED Industrial Real Estate Agent for Chg Fwd Exam Expanded Problem Focused
[2021-01-23] MEDS: FUROsemide 10 mg/mL SDV 10mL 80 MG XX (15:55)
== END 2021-01-23 15:59 | disposition home or self-care (01) ==
PROVIDERS: Emergency Provider Nurse Practitioner Family; PCP Nurse Practitioner Family
DX: R60.0 Localized edema (principal); F17.210 Nicotine dependence, cigarettes, uncomplicated; Z79.82 Long term (current) use of aspirin; I25.118 Atherosclerotic heart disease of native coronary artery with other forms of angina pectoris; I50.9 Heart failure, unspecified; E78.5 Hyperlipidemia, unspecified; J44.9 Chronic obstructive pulmonary disease, unspecified; Z86.73 Personal history of transient ischemic attack (TIA), and cerebral infarction without residual deficits; E11.9 Type 2 diabetes mellitus without complications; E66.9 Obesity, unspecified; Z68.38 Body mass index [BMI] 38.0-38.9, adult; L97.429 Non-pressure chronic ulcer of left heel and midfoot with unspecified severity
CPT/HCPCS: 96372; 99283; J1940

== ENCOUNTER 2021-01-24 14:21 | Emergency (ER) | payer MEDICARE, MEDICAID, SELFPAY ==
[2021-01-24 14:27] VITALS: BP 132/82; PULSE 92; RESP 18; TEMP 36.3; O2SAT 95; BMI 38.2
--- NOTE | 2021-01-24 14:36 | W.ED.EXTPRO ---
HPI - Extremity Problem General: Chief complaint: Extremity Injury, Lower Stated complaint: Swelling of legs and feet. Seen 01/23 for same Time Seen by Provider: 01/24/21 14:34 History of Present Illness: HPI Narrative: 55-year-old female presents emergency room complaining of unable to urinate as well as leg swelling. She was seen yesterday for the same thing. She denies any fever sweats or chills she denies any vomiting or diarrhea no drainage from the legs. No open wounds. MD Complaint: extremity swelling Onset (ago): day(s) Location: left, right and lower extremity Quality: aching Radiation: none Relieving factors: nothing Exacerbating factors: nothing Associated symptoms: Deny arthralgias, chest pain, fever(s), myalgias, rash or short of breath Review of Systems Const: Denies: fever(s) ENMT: Denies: throat pain, ear or mastoid pain, nasal discharge or nasal congestion Card: Denies: chest pain Resp: Denies: dyspnea, productive cough or non-productive cough GI: Denies: abdominal pain, nausea, vomiting, hematemesis, coffee ground emesis, diarrhea, constipation, bloating, hematochezia or melena : Denies: flank pain, difficulty voiding, dysuria, urinary frequency or urinary urgency Skin/Breast: Denies: rash PFSH ED PFSH: Medical History (Updated 01/24/21 @ 16:26 by Luis Hewitt DO) (HFpEF) heart failure with preserved ejection fraction Anemia Atherosclerotic heart disease of [place] coronary artery with other forms of angina pectoris Atherosclerotic heart disease of [place] coronary artery with unspecified angina pectoris CAD (coronary artery disease) Chest pain Chest pain, midsternal Chronic congestive heart failure Chronic left-sided low back pain Chronic obstructive pulmonary disease, unspecified Chronic pain of left knee Congestive heart failure COPD (chronic obstructive pulmonary disease) Coronary artery disease due to type 2 diabetes mellitus Current every day smoker CVA (cerebral vascular accident) Diabetes type 2, uncontrolled Dyslipidemia Elevated troponin Encounter for long-term opiate analgesic use Essential hypertension Fibromyalgia Fibromyalgia, primary Hyperlipidemia, mixed Insomnia Intervertebral disc disorder of lumbar region with myelopathy Leukocytosis Low back pain radiating to both legs Lumbosacral spondylosis without myelopathy NSTEMI (non-ST elevated myocardial infarction) Thought to be secondary to plaque rupture. Angiogram July 04 no flow-limiting lesions, or restenosis of previous stent from April 2020 Obesity (BMI 35.0-39.9 without comorbidity) Opioid contract exists Osteoarthritis of spine at multiple levels Type 2 diabetes mellitus Type 2 diabetes mellitus with diabetic autonomic (poly)neuropathy Vitamin D deficiency Surgical History History of arthroscopic surgery of elbow BILATERAL History of coronary angiogram Angiogram April 2020 with 90% circumflex lesion, drug-eluting stent placed by Dr. Jerome S/p bilateral carpal tunnel release S/P hysterectomy S/P knee surgery RIGHT S/P lumbar fusion DR. Shreya ZAYAS IN [place], [place] L4-L5, L5-S1 Status post left knee replacement Status post lumbar laminectomy Family History Other CAD (coronary artery disease) Cancer Diabetes Social History Smoking and tobacco status: current every day smoker cigarettes [ Other cigarette details: PER PATIENT REPORT ] Second hand smoke exposure: Yes Smoking risk assessment/counseling performed?: Yes Alcohol intake: former Desire information about alcohol rehabilitation?: No Counseling given: No Desire information about substance/drug rehabilitation?: No Counseling given: No Caregiver/support person: No Lives independently: Yes Household members: family and other Details: son Housing: Manufactured/Mobile home Marital status: Unknown Marital status details: She and son state she is not service: No Current occupational status: unemployed Pets and animals: Yes History of recent travel: No Current gender identity: Female Physical Exam Const: COMMON NORMALS: no acute distress GENERAL APPEARANCE: cooperative and comfortable ORIENTATION/CONSCIOUSNESS: Yes awake, Yes oriented to person, Yes oriented to place and Yes oriented to time HENMT: COMMON NORMALS: normocephalic, atraumatic and hearing grossly normal bilaterally HEAD & SCALP: normocephalic and atraumatic Neck/C-Spine: COMMON NORMALS: no JVD Resp: COMMON NORMALS: normal respiratory effort, No retractions, No use of accessory muscles and clear to auscultation bilaterally AUSCULTATION: clear to auscultation bilaterally Cardio: COMMON NORMALS: no JVD, regular rate, regular rhythm and No murmurs present (Cardio) RATE: regular rate RHYTHM: regular rhythm GI: COMMON NORMALS: Soft to palpation and No hepatosplenomegaly present AUSCULTATION: Yes normoactive bowel sounds PALPATION: Yes Soft to palpation, No Tenderness to palpation present (GI), No Guarding due to palpation present (GI) and Yes No hepatosplenomegaly present Extremity: NARRATIVE EXTREMITY EXAM: Plus edema lower extremities bilaterally no drainage no erythema Neuro: SENSORIUM/ORIENTATION: Yes oriented to person, Yes oriented to place and Yes oriented to time Skin: COMMON NORMALS: no rashes or lesions noted GENERAL SKIN EXAM: no rashes or lesions noted Course Vital Signs: Vital signs: Vital Signs Temperature 97.4 F L 01/24/21 14:27 Pulse Rate 88 01/24/21 17:28 Respiratory Rate 16 01/24/21 17:28 Blood Pressure 132/82 01/24/21 14:27 Pulse Oximetry 94 01/24/21 17:28 MDM - Extremity (Nontraumatic) MDM Narrative: Medical decision making narrative: Postvoid residual of 18 mL. We will discharge her home with an increase in her Lasix. Follow-up with her primary care doctor return as needed Lab Data: Labs: Lab Results 01/24/21 01/24/21 01/24/21 Range/Units 15:05 15:10 15:10 WBC 12.3 H (4.0-10.0) 10^3/ uL RBC 4.36 (4.1-5.3) 10^6/u L Hgb 11.3 L (11.5-15.3) g/dL Hct 36.7 L (37.0-47.0) % MCV 84.2 (81-99) fL MCH 25.9 L (28.0-34.0) pg MCHC 30.8 (30.0-36.0) g/dL RDW 15.3 H (12.1-15.1) % Plt Count 946 H (130-400) 10^3/c mm MPV 8.9 (7.4-10.4) fL Lymph % (Auto) Not Reportable [place] % (Auto) Not Reportable Lymph # (Auto) Not Reportable [place] # (Auto) Not Reportable Total Counted 100 (0-100) Atypical Lymphs % 2.0 (0-5) % Absolute Neutrophi ls 6.0 (1.4-6.5) 10^3/c mm Segmented Neutroph ils 46 % Abs Segm Neuts (Ma n) 5.7 (1.6-7.1) 10/cmm Band Neutrophils 3.0 % Abs Band Neuts (Ma n) 0.4 (0.0-1.2) 10^3/c mm Absolute Lymphocyt es 4.8 H (1.2-3.4) 10^3/c mm Lymphocytes (Manua l) 37 % Monocytes (Manual) 5.0 % Absolute Monocytes 0.6 (0.1-0.6) 10^3/c mm Eosinophils (Manua l) 4 % Absolute Eosinophi ls 0.4 (0.0-0.7) 10^3/c mm Basophils (Manual) 0.0 % Absolute Basophils 0.0 (0.0-0.2) 10^3/c mm Metamyelocytes 1.0 % Myelocytes 2.0 % Nucleated RBCs 1.0 (0-1) /100WBC Platelet Estimate Increased H (Normal) Polychromasia Trace Poikilocytosis 1+ H Anisocytosis 1+ H Macrocytosis Trace Sodium 138 (136-145) mmol/L Potassium 4.0 (3.5-5.1) mmol/L Chloride 100 (98-107) mmol/L Carbon Dioxide 25 (22-29) mmol/L Anion Gap 17.0 (5-19) BUN 11 (6-20) mg/dL Creatinine 0.7 (0.5-0.9) mg/dL GFR Calculation 87.5 L (90-130) mL/min Glucose 181 H (65-115) mg/dL Calculated Osmolal ity 290 (285-295) mOsm/k g Calcium 8.9 (8.5-10.5) mg/dL Total Bilirubin 0.2 (0.15-1.2) mg/dL AST 11 (0-32) U/L ALT 7 (0-33) U/L Alkaline Phosphata se 93 (35-105) IU/L Total Protein 6.6 (6.6-8.7) g/dL Albumin 3.4 L (3.5-5.2) g/dL Globulin 3.2 (1.3-4.6) g/dL Urine Color Yellow (Yellow) Urine Appearance Cloudy (CLEAR) Urine pH 7 (5-7) Ur Specific Gravit y 1.015 (1.005-1.030) Urine Protein Neg (Negative) Urine Glucose (UA) Norm (Normal) Urine Ketones 1+ H (Negative) Urine Blood Neg (Negative) Urine Nitrate Positive H (Negative) Urine Bilirubin Neg (Negative) Urine Urobilinogen Norm (Negative) mg/dL Ur Leukocyte Maria Elena ase Negative (Negative) Urine RBC None (0-2) /hpf Urine WBC 15-25 H (0-5) /hpf Ur Squamous Epith Cells 5-10 H (0-5) /hpf Amorphous Sediment Not Reportable Urine Bacteria 4+ H (NONE) /hpf Discharge Plan Discharge Patient Disposition: Home Clinical Impression: Cystitis, Leg edema Condition: Stable Prescriptions: New Cipro 500 mg tablet 500 mg PO BID Qty: 14 RF: 0 No Action budesonide-formoterol [Symbicort] 160-4.5 mcg/actuation HFA aerosol inhaler 2 puff INHALATION Q12H Qty: 10.2 RF: 2 albuterol sulfate [Ventolin HFA] 90 mcg/actuation HFA aerosol inhaler 2 puff INHALATION QID PRN (Reason: shortness of breath or wheezing) 30 Days Qty: 6.7 RF: 2 cyclobenzaprine 10 mg tablet 10 mg PO TID PRN (Reason: muscle spasm) 30 Days Qty: 90 RF: 1 duloxetine 60 mg capsule, delayed rel sprinkle 60 mg PO DAILY@08 30 Days Qty: 30 RF: 1 topiramate 50 mg tablet 50 mg PO BID@, RF: 0 pantoprazole [Protonix] 40 mg tablet,delayed release (DR/EC) 40 mg PO DAILY@08 RF: 0 lidocaine 5 % adhesive patch,medicated 1 patch topical DAILY Qty: 30 RF: 2 nitroglycerin 0.4 mg tablet, sublingual See Rx Instructions .ROUTE .COMPLEX Qty: 25 RF: 3 Levemir FlexTouch U-100 Insuln 100 unit/mL (3 mL) insulin pen 20 unit SUBCUT DAILY@08 Qty: 15 RF: 0 atorvastatin 40 mg tablet 40 mg PO DAILY@21 RF: 0 levetiracetam [Keppra] 500 mg Tablet 500 mg PO BID@, RF: 0 quetiapine [Seroquel] 50 mg tablet 50 mg PO BEDTIME@21 RF: 0 ranolazine 500 mg tablet extended release 12 hr 1,000 mg PO BID@ RF: 0 Brilinta 90 mg tablet 90 mg PO BID@ RF: 0 aspirin 81 mg Tablet,Chewable 81 mg PO DAILY@08 RF: 0 acetaminophen 325 mg Tablet 650 mg PO Q6H PRN (Reason: Mild/Mod Pain Or Temp >/= 101) Qty: 30 RF: 0 cyanocobalamin (vitamin B-12) [Vitamin B-12] 1,000 mcg Tablet 500 mcg PO DAILY Qty: 30 RF: 0 potassium chloride 20 mEq Tablet Extended Release 20 meq PO DAILY@08 RF: 0 Santyl 250 unit/gram Ointment 1 applic TOPICAL DAILY RF: 0 midodrine 5 mg tablet 5 mg PO BID@0800,2100 RF: 0 isosorbide mononitrate 60 mg tablet extended release 24 hr 60 mg PO BID@, RF: 0 ergocalciferol (vitamin D2) 1,250 mcg (50,000 unit) capsule 1,250 mcg PO Q7D RF: 0 losartan 50 mg tablet 50 mg PO DAILY@0800 RF: 0 fluconazole 150 mg tablet See Rx Instructions .ROUTE .COMPLEX RF: 0 sulfamethoxazole-trimethoprim 400-80 mg tablet 1 tab PO DAILY@0800 RF: 0 metformin 500 mg tablet extended release 24 hr 500 mg PO QID@08,12,16,20 RF: 0 diclofenac sodium 1 % Gel See Rx Instructions .ROUTE .COMPLEX RF: 0 furosemide [Lasix] 40 mg tablet 40 mg PO BID@0800,2100 PRN (Reason: Edema) RF: 0 Ultram 50 mg tablet 50 mg PO .5 times a day PRN (Reason: pain) RF: 0 hydromorphone 2 mg tablet 2 mg PO TID@0800,1200,1800 RF: 0 folic acid 1 mg tablet 1 mg PO DAILY@0800 RF: 0 ferrous sulfate 325 mg (65 mg iron) tablet,delayed release (DR/EC) 325 mg PO BID@0800,2100 RF: 0 Lyrica 150 mg capsule 150 mg PO BID@0800,1800 RF: 0 Discharge Orders: Discharge ED (Routine); Ordered 01/24/21 Ordered By: Luis Hewitt Referrals: Naomy Goodwin FNP [Primary Care Provider] - Discharge Diet: Usual diet Discharge Activity: Resume usual activity Patient Instructions: Opioid Safety Activity Restrictions/Additional Instructions: Increase your Lasix to 60 mg twice daily for the next 3 days follow-up with your primary care doctor early next week. Coding Level of Care Code ED Wig Maker for Nahed Fwheidi Exam Detailed
[2021-01-24 15:21] LABS: Hematocrit 36.7 % (37.0-47.0); Hemoglobin 11.3 g/dL (11.5-15.3); Mean Corpuscular HGB Conc 30.8 g/dL (30.0-36.0); Mean Corpuscular Hemoglobin 25.9 pg (28.0-34.0); Mean Corpuscular Volume 84.2 fL (81-99); Mean Platelet Volume 8.9 fL (7.4-10.4); Platelet Count 946 10^3/cmm (130-400); Red Blood Count 4.36 10^6/uL (4.1-5.3); Red Cell Distribution Width 15.3 % (12.1-15.1); White Blood Count 12.3 10^3/uL (4.0-10.0)
[2021-01-24 15:29] LABS: Add Urine Culture? Yes; Add Urine Microscopic? YES; Bacteria Urine 4+ /hpf; Bilirubin Urine Neg (Negative); Blood Urine Neg (Negative); Glucose Urine UA Norm (Normal); Ketones Urine 1+ (Negative); Leukocyte Esterase Urine Negative (Negative); Nitrate Urine Positive (Negative); Protein Urine Neg (Negative); Specific Gravity, Urine 1.015 (1.005-1.030); Urine Appearance Cloudy (CLEAR); Urine Color Yellow (Yellow); Urobilinogen Urine Norm (Negative); WBC Urine 15-25 /hpf (0-5); pH Urine 7 (5-7)
[2021-01-24 15:37] LABS: Slide Review Slide Review Perform
[2021-01-24 15:40] LABS: Absolute Eosinophils 0.4 10^3/cmm (0.0-0.7); Absolute Segmented Neutrophil 5.7 10/cmm (1.6-7.1); Band Neutrophils Absolute 0.4 10^3/cmm (0.0-1.2); Eosinophils 4 %; Lymphocytes 37 %; Lymphocytes Absolute 4.8 10^3/cmm (1.2-3.4); Monocytes Absolute 0.6 10^3/cmm (0.1-0.6); Segmented Neutrophils 46 %; Total Cells Counted 100 (0-100)
[2021-01-24 15:41] LABS: Anisocytosis 1+; Macrocytosis Trace; Poikilocytosis 1+; Polychromasia Trace
[2021-01-24 15:42] LABS: Platelet Estimate Increased (Normal)
[2021-01-24 15:50] LABS: Alanine Aminotransferase 7 U/L (0-33); Albumin Level 3.4 g/dL (3.5-5.2); Alkaline Phosphatase 93 IU/L (35-105); Aspartate Amino Transferase 11 U/L (0-32); Blood Urea Nitrogen 11 mg/dL (6-20); Calcium 8.9 mg/dL (8.5-10.5); Carbon Dioxide 25 mmol/L (22-29); Chloride 100 mmol/L (98-107); Globulin 3.2 g/dL (1.3-4.6); Glomerular Filtration Rate 87.5 mL/min (90-130); Glucose 181 mg/dL (65-115); Osmolality Calculated 290 mOsm/kg (285-295); Sodium 138 mmol/L (136-145); Total Bilirubin 0.2 mg/dL (0.15-1.2); Total Protein 6.6 g/dL (6.6-8.7)
[2021-01-24] MEDS: cefTRIAXone 1,000 MG in sodium chloride 0.9% (plus) 50 ML 100 MG IV (16:29)
[2021-01-24 17:28] VITALS: PULSE 88; RESP 16; O2SAT 94
== END 2021-01-24 17:29 | disposition home or self-care (01) ==
PROVIDERS: Emergency Provider Family Medicine; PCP Nurse Practitioner Family
DX: N30.00 Acute cystitis without hematuria (principal); R60.0 Localized edema; Z79.82 Long term (current) use of aspirin; Z79.4 Long term (current) use of insulin; I25.10 Atherosclerotic heart disease of native coronary artery without angina pectoris; I11.0 Hypertensive heart disease with heart failure; I50.9 Heart failure, unspecified; J44.9 Chronic obstructive pulmonary disease, unspecified; Z86.73 Personal history of transient ischemic attack (TIA), and cerebral infarction without residual deficits; E78.2 Mixed hyperlipidemia; I25.2 Old myocardial infarction; E11.42 Type 2 diabetes mellitus with diabetic polyneuropathy; F17.210 Nicotine dependence, cigarettes, uncomplicated
CPT/HCPCS: 80053; 81001; 85007; 85025; 87077; 87086; 87186; J0696

== ENCOUNTER 2021-02-05 08:47 | Outpatient (CLI) | payer MEDICARE, MEDICAID, SELFPAY ==
--- NOTE | 2021-02-05 09:41 | ECG_ITS ---
[facility] Test Date: 2021-02-05 Pat Name: Mayra Ascencio Department: Room: Gender: Female Repair Weaver: : 1965 Requested By: Aurea Walters Order Number: [id number] Ashlee MD: CRISTHIAN TEJEDA Interpretive Statements NAME OF STUDY: LEXISCAN SESTAMIBI STRESS TEST INDICATION: Chest Pain, NOTE: Please note that this is the electrocardiogram portion of the Lexiscan/Sestamibi stress test. The perfusion scan will be documented separately. DATA: Baseline heart rate was 88 beats per minute. Baseline blood pressure was 153/76 millimeters of mercury. Target heart rate was 167. Maximum heart rate achieved was 99. which was 59 % of the predicted target heart rate. Maximum blood pressure was 167/77 millimeters of mercury. The reason for ending the test was completion of the protocol. The patient did not experience any symptoms. ELECTROCARDIOGRAM: BASELINE: Sinus rhythm. Normal axis. Otherwise, no ST-T changes suggestive of ischemia noted. No arrhythmia noted. EXERCISE: After Lexiscan injection, no ST-T changes suggestive of ischemic noted. No arrhythmia noted. CONCLUSION: Please note due to baseline abnormality of the EKG specificity and sensitivity of the EKG portion of LexiScan MIBI stress test will be low 1. EKG not suggestive of ischemia 2. Lexiscan injection unremarkable. 3. Perfusion scan will be documented separately. Electronically Signed On 03-03-2021 19:59:12 CDT by CRISTHIAN TEJEDA [email or web address]
--- NOTE | 2021-02-05 09:41 | NMCV_ITS ---
NM jb perf SPECT r/s* [id number] Tania Ascencioe Age: 55 Gender: F : 1965 Exam Date: 02/05/2021 10:11 Ordering Phys: Aurea Walters Technologist: SUMA Stokes Exam Location: [facility] Indications: ATHEROSCLEROTIC HEART DISEASE OF [place] CORONARY ARTERY STRESS TEST Please see separate stress test report in [facility] for full findings IMAGE PROTOCOL Rest/Stress 1 Lexiscan Day Radiopharmaceutical Dose (mCi) Administration Site Administered by Rest: Tc-99m 10.9 IV SUMA Lim Sestamibi Stress:Tc-99m 32.4 IV SUMA Lim Sestamibi Rest: 05-Feb-2021 60 Discovery 630 Stress: 05-Feb-2021 30 Discovery 630 0.4mg Lexiscan. Images obtained in supine and prone position. SPECT RESULTS Technical Quality: Excellent Raw Data Analysis: Normal Image Corrections: No attenuation or motion correction applied Summed Stress Score: 3 Summed Rest Score: 0 Summed Difference Score: 3 PERFUSION FINDINGS Patchy area of decreased tracer uptake noted in basal to mid inferior wall suggestive of artifact in the absence of wall motion abnormal FUNCTIONAL RESULTS (calculated via Gated SPECT) Stress Image LV EF (%): 76 Stress EDV (mL):80 TID: 1.13 Stress ESV (mL):19 Rest Image LV EF (%): 75 FUNCTIONAL FINDINGS: There is normal left ventricular systolic function. IMPRESSIONS Myocardial perfusion imaging is normal and low probability of obstructive coronary artery disease. TID ratio is elevated which could be secondary left ventricle hypertrophy/subendocardial ischemia in the absence of other parameters. Darrell Jerome MD (Electronically Signed) Final Date: 06 February 2021 20:42 S
[2021-02-05 09:42] VITALS: BMI 39.6
[2021-02-05] MEDS: regadenoson 0.4 Mg/5 ml Syringe IVP (10:43)
[2021-02-05 10:59] VITALS: BP 156/71; PULSE 90
== END 2021-02-05 08:48 | disposition home or self-care (01) ==
LOC: CDL 08:53
PROVIDERS: PCP Nurse Practitioner Family; Visit Provider Nurse Practitioner Family
DX: R07.9 Chest pain, unspecified (principal); I25.119 Atherosclerotic heart disease of native coronary artery with unspecified angina pectoris
CPT/HCPCS: 78452; 93017; A9500; J2785

== ENCOUNTER 2021-02-16 09:34 | Outpatient (CLI) | payer MEDICARE, MEDICAID, SELFPAY | END 2021-02-16 09:35 | disposition home or self-care (01) | LOC: WOUND 09:35 | PROVIDERS: PCP Nurse Practitioner Family; Visit Provider Nurse Practitioner Family | DX: E11.621 Type 2 diabetes mellitus with foot ulcer (principal); L97.412 Non-pressure chronic ulcer of right heel and midfoot with fat layer exposed | CPT/HCPCS: 11042 ==

== ENCOUNTER → 2021-03-06 11:59 | Outpatient (BNVA) | payer MEDICARE, MEDICAID, SELFPAY | PROVIDERS: PCP Nurse Practitioner Family; Visit Provider Nurse Practitioner Family | DX: J44.9 Chronic obstructive pulmonary disease, unspecified (principal); E11.65 Type 2 diabetes mellitus with hyperglycemia; E11.42 Type 2 diabetes mellitus with diabetic polyneuropathy; I25.119 Atherosclerotic heart disease of native coronary artery with unspecified angina pectoris; F51.01 Primary insomnia; E78.5 Hyperlipidemia, unspecified; E55.9 Vitamin D deficiency, unspecified; Z79.891 Long term (current) use of opiate analgesic; Z79.4 Long term (current) use of insulin | CPT/HCPCS: 80053; 80061; 83036; 84443; 85025 ==

== ENCOUNTER 2021-03-16 02:15 | Inpatient (IN) | payer MEDICARE, MEDICAID, SELFPAY ==
[2021-03-16] VITALS (8 sets, daily range): BP systolic 101–159; BP diastolic 62–89; PULSE 83–99; RESP 16–24; TEMP 36.4–37.2; O2SAT 92–95; BMI 35.2
--- NOTE | 2021-03-16 02:34 | XRR_ITS ---
PROCEDURE INFORMATION: Exam: XR Right Ankle Exam date and time: 03/16/2021 2:36 AM Age: 55 years old Clinical indication: Injury or trauma; Fall; Blunt trauma; Ankle; Right TECHNIQUE: Imaging protocol: XR Right ankle. Views: 3 or more views. COMPARISON: No relevant prior studies available. FINDINGS: Bones/joints: No acute fracture. No dislocation. Soft tissues: Soft tissue edema. XR/XR ankle RT min 3V* [id number] IMPRESSION: No acute fracture. There is soft tissue edema.
--- NOTE | 2021-03-16 02:34 | XRR_ITS ---
PROCEDURE INFORMATION: Exam: XR Right Shoulder Exam date and time: 03/16/2021 2:36 AM Age: 55 years old Clinical indication: Injury or trauma; Fall; Blunt trauma (contusions or hematomas); Shoulder; Right TECHNIQUE: Imaging protocol: XR Right shoulder. Views: 2 or more views. COMPARISON: No relevant prior studies available. FINDINGS: Bones/joints: No acute fracture. No dislocation. Soft tissues: No radiopaque foreign body. XR/XR shoulder RT min 2V* [id number] IMPRESSION: No acute findings.
--- NOTE | 2021-03-16 02:34 | XRR_ITS ---
PROCEDURE INFORMATION: Exam: XR Right Femur Exam date and time: 03/16/2021 2:36 AM Age: 55 years old Clinical indication: Injury or trauma; Fall; Blunt trauma; Hip; Prior surgery; Surgery date: 6+ months; Surgery type: Total right knee TECHNIQUE: Imaging protocol: XR Right femur. Views: 2 views. COMPARISON: No relevant prior studies available. FINDINGS: Bones/joints: Questionable subtle femoral neck fracture versus degenerative changes at the femoral head neck junction. Correlation with CT may be considered if clinically warranted. Right knee prosthesis partially imaged. Remaining portions of the right femur appear to be intact. Soft tissues: Unremarkable. XR/XR femur RT min 2V* [id number] IMPRESSION: Questionable subtle femoral neck fracture versus degenerative changes at the femoral head neck junction. Correlation with CT may be considered if clinically warranted.
[2021-03-16] MEDS: HYDROmorphone 1 mg/mL INJ 1 mL IVP ×2 (03:42→05:02)
--- NOTE | 2021-03-16 03:57 | CTR_ITS ---
PROCEDURE INFORMATION: Exam: CT Pelvis Without Contrast; Skeletal Exam date and time: 03/16/2021 4:17 AM Age: 55 years old Clinical indication: Injury or trauma; Fall; Blunt trauma (contusions or hematomas); Right; Hip; Additional info: R hip pain, fall TECHNIQUE: Imaging protocol: Computed tomography images of the pelvis without contrast. Exam focused on the skeletal structures. Radiation optimization: All CT scans at this facility use at least one of these dose optimization techniques: automated exposure control; mA and/or kV adjustment per patient size (includes targeted exams where dose is matched to clinical indication); or iterative reconstruction. COMPARISON: CT abdomen pelvis w con* [id number] 06/14/2020 6:20 PM RADIATION DOSE METRICS: Total DLP (mGy-cm): 907.91 FINDINGS: Bladder: [place] catheter is identified in the bladder. Bones/joints: Postsurgical changes in the lumbar spine. No acute fracture. No dislocation. Postsurgical changes in the lower lumbar spine. Soft tissues: Unremarkable. CT/CT bony pelvis [id number] IMPRESSION: No acute fracture. Radiation Dose CTDIVOL = (mGy): DLP = 907.91 (mGy-cm)
[2021-03-16 04:51] LABS: Basophils # 0.1 10^3/uL (0.0-0.1); Basophils % 0.5 %; Eosinophils # 0.3 10^3/uL (0.0-0.8); Eosinophils % 1.9 %; Hematocrit 35.7 % (37.0-47.0); Hemoglobin 11.5 g/dL (11.5-15.3); Lymphocytes # 2.8 10^3/uL (0.8-4.8); Lymphocytes % 17.3 %; Mean Corpuscular HGB Conc 32.2 g/dL (30.0-36.0); Mean Corpuscular Hemoglobin 27.4 pg (28.0-34.0); Mean Corpuscular Volume 85.2 fL (81-99); Mean Platelet Volume 9.9 fL (7.4-10.4); Monocytes # 1.4 10^3/uL (0.2-0.9); Monocytes % 8.6 %; Neutrophils # 11.37 10^3/uL (1.8-7.7); Neutrophils % 70.6 %; Nucleated Red Blood Cells % 0 %; Platelet Count 500 10^3/cmm (130-400); Red Blood Count 4.19 10^6/uL (4.1-5.3); Red Cell Distribution Width 16.7 % (12.1-15.1); White Blood Count 16.1 10^3/uL (4.0-10.0)
[2021-03-16 04:57] LABS: Add Urine Microscopic? YES; Bilirubin Urine Neg (Negative); Blood Urine 3+ (Negative); Glucose Urine UA Norm (Normal); Ketones Urine Negative (Negative); Leukocyte Esterase Urine Negative (Negative); Nitrate Urine Negative (Negative); Protein Urine Neg (Negative); Specific Gravity, Urine 1.025 (1.005-1.030); Urine Appearance SL Hazy (CLEAR); Urine Color Yellow (Yellow); Urobilinogen Urine Norm (Negative); pH Urine 5 (5-7)
[2021-03-16 05:12] LABS: Add Urine Culture? Yes; Alanine Aminotransferase 25 U/L (0-33); Albumin Level 3.3 g/dL (3.5-5.2); Alkaline Phosphatase 92 IU/L (35-105); Anion Gap 15.8 (5-19); Aspartate Amino Transferase 93 U/L (0-32); Bacteria Urine 2+ /hpf; Blood Urea Nitrogen 17 mg/dL (6-20); C Reactive Protein 115.7 mg/L (0.0-4.9); Calcium 8.5 mg/dL (8.5-10.5); Carbon Dioxide 24 mmol/L (22-29); Chloride 98 mmol/L (98-107); Globulin 2.8 g/dL (1.3-4.6); Glomerular Filtration Rate 87.5 mL/min (90-130); Glucose 215 mg/dL (65-115); Magnesium 1.5 mg/dL (1.7-2.3); Osmolality Calculated 286 mOsm/kg (285-295); Potassium 3.8 mmol/L (3.5-5.1); RBC Urine 15-25 /hpf (0-2); Sodium 134 mmol/L (136-145); Squamous Epithelial Cell Urine 0-4 /hpf (0-5); Total Bilirubin 0.3 mg/dL (0.15-1.2); Total Protein 6.1 g/dL (6.6-8.7); WBC Urine 0-4 /hpf (0-5)
[2021-03-16 05:31] LABS: Creatine Phosphokinase 10310 U/L (26-192)
--- NOTE | 2021-03-16 05:40 | P.HP_ITS ---
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 Ramos & orthopedics, has oxygen dependent COPD uses 2 L of oxygen, active smoker, presenting today after sustaining a fall at home. 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 Because of these concerns she was brought to the hospital. She is denying chest pain, syncopal event, seizure-like activities, recent fever, shortness of breath. She is smoking half a pack a day. She uses a walker for ambulation. 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 She has not noticed any strokelike symptoms. Diagnostics in the ER revealed rhabdomyolysis, hip x-ray was concerning for subtle fracture changes versus osteoarthritis for which CT scanning pelvis was requested which did not show any acute fractures, she has moderate leukocytosis, stable hemoglobin, no kidney function abnormality, CPK 10,000, hypomagnesemia, normal calcium level despite low albumin, she was able to void in the ER, cola colored urine noticed Review of Systems Const: Reports: body aches and fatigue; Denies: fever(s) Eyes: Denies: change in vision ENMT: Denies: throat pain Card: Reports: swelling of feet/ankles and dyspnea on exertion; Denies: chest pain Resp: Reports: dyspnea GI: Denies: abdominal pain : Reports: hematuria; Denies: flank pain Musc: Reports: extremity swelling, joint pain, joint swelling and muscle cramps; Denies: neck pain, joint redness or joint warmth Skin/Breast: Reports: lesions Neuro: Reports: weakness in extremities and difficulty walking; Denies: headache(s) Psych: Denies: anxiety Endo: Denies: polyuria Xavier/Lymph: Denies: easy bruising All/Imm: Denies: urticaria Medications/Allergies Home Medications Medication Instructions Recorded Confirmed Last Taken Type pantoprazole 40 mg tablet,delayed 40 mg PO DAILY@08 11/05/19 03/10/21 01/23/21 History release topiramate 50 mg tablet 50 mg PO BID@11/05/19 03/10/21 01/23/21 History Brilinta 90 mg PO BID@,09/29/20 03/10/21 01/23/21 History aspirin 81 mg PO DAILY@09/29/20 03/10/21 01/23/21 History ranolazine 1,000 mg PO BID@09/29/20 03/10/21 01/23/21 History acetaminophen 650 mg PO Q6H PRN #30 tab 10/16/20 03/10/21 Unknown Rx cyanocobalamin (vitamin B-12) 500 mcg PO DAILY #30 tab 10/16/20 03/10/2101/23 Rx [Vitamin B-12] nitroglycerin 0.4 mg sublingual See Rx Instructions .ROUTE 11/06/20 03/10/21 Unknown Rx tablet .COMPLEX #25 tab potassium chloride 20 meq PO DAILY@08 12/29/20 03/10/21 01/23/21 History lidocaine 5 % topical patch 1 patch TOPICAL DAILY #30 ea 01/07/21 03/10/21 0 01/24/21 Rx Santyl 1 applic TOPICAL DAILY 01/15/21 03/10/21 01/23/21 History ergocalciferol (vitamin D2) 1,250 mcg PO Q7D 01/15/21 03/10/21 01/23/21 History isosorbide mononitrate 60 mg PO BID@01/15/21 03/10/21 01/23/21 History midodrine 5 mg PO BID@0800,2100 01/15/21 03/10/21 01/23/21 History cyclobenzaprine 10 mg tablet 10 mg PO TID PRN 30 Days #90 tab 01/22/21 03/10/21 01/23/21 Rx duloxetine 60 mg capsule,delayed 60 mg PO DAILY@08 30 Days #30 cap 01/22/21 03/10/21 01/23/21 Rx release sprinkle diclofenac sodium See Rx Instructions .ROUTE .COMPLEX 01/24/21 03/10/21 01/23/21 History ferrous sulfate 325 mg PO BID@0800,2100 01/24/21 03/10/21 01/23/21 History folic acid 1 mg PO DAILY@0800 01/24/21 03/10/21 01/23/21 History hydromorphone 2 mg PO TID@0800,1200,1800 01/24/21 03/10/21 01/23/21 History losartan 50 mg PO DAILY@0800 01/24/21 03/10/21 01/23/21 History pregabalin [Lyrica] 150 mg PO BID@0800,1800 01/24/21 03/10/21 01/23/21 History tramadol [Ultram] 50 mg PO .5 times a day PRN 01/24/21 03/10/21 01/23/21 History furosemide 40 mg tablet 40 mg PO BID@0800,2100 PRN #60 tab 03/04/21 03/10/21 Unknown Rx albuterol sulfate 90 mcg/actuation 2 puff INHALATION QID PRN 30 Days 03/06/21 03/10/21 Unknown Rx aerosol inhaler #6.7 gm budesonide-formoterol HFA 160 2 puff INHALATION Q12H #10.2 gm 03/06/21 03/10/21 Unknown Rx mcg-4.5 mcg/actuation aerosol inhaler cetirizine 10 mg tablet 10 mg PO DAILY PRN #30 tab 03/06/21 03/10/21 Unknown Rx fluticasone propionate 50 2 spray INTRANASAL DAILY #16 g 03/06/21 03/10/21 Unknown Rx mcg/actuation nasal spray,suspension insulin detemir U-100 100 unit/mL 20 unit SUBCUT DAILY@08 #15 ml 03/06/21 03/10/21 Unknown Rx (3 mL) subcutaneous pen metformin 500 mg tablet,extended 1,000 mg PO BID #120 tab 03/06/21 03/10/21 Unknown Rx release 24 hr quetiapine 100 mg tablet 100 mg PO .qhs #30 tab 03/06/21 03/10/21 Unknown Rx sulfamethoxazole 400 1 tab PO DAILY #30 tab 03/10/21 03/10/21 Unknown Rx mg-trimethoprim 80 mg tablet atorvastatin 80 mg tablet 80 mg PO DAILY #30 tab 03/13/21 Unknown Rx Allergies Allergy/AdvReac Type Severity Reaction Status Date / Time adhesive Allergy Unknown Verified 03/10/21 11:06 clindamycin Allergy ADR-Itching Verified 03/10/21 11:06 codeine Allergy Unknown Verified 03/10/21 11:06 hydrocodone Allergy Unknown Verified 03/10/21 11:06 latex Allergy ALGY-Swell Verified 03/10/21 11:06 Lip/Tongue/Throat naproxen [From Naprosyn] Allergy Unknown Verified 03/10/21 11:06 nut - unspecified Allergy ALGY-Anaphy Verified 03/10/21 11:06 laxis oxycodone [From Roxicodone] Allergy ADR-Muscle Verified 03/10/21 11:06 Pain Penicillins Allergy Unknown Verified 03/10/21 11:06 sulfamethoxazole Allergy ADR-Migrain Verified 03/10/21 11:06 [From Bactrim] e trimethoprim [From Bactrim] Allergy ADR-Migrain Verified 03/10/21 11:06 e PFSH Acute PFSH: Medical History (Updated 03/16/21 @ 06:23 by Darrell Cunha MD) (HFpEF) heart failure with preserved ejection fraction Anemia Atherosclerotic heart disease of [place] coronary artery with other forms of angina pectoris Atherosclerotic heart disease of [place] coronary artery with unspecified angina pectoris CAD (coronary artery disease) Chest pain Chest pain, midsternal Chronic congestive heart failure Chronic left-sided low back pain Chronic obstructive pulmonary disease, unspecified Chronic pain of left knee Congestive heart failure COPD (chronic obstructive pulmonary disease) Coronary artery disease due to type 2 diabetes mellitus Current every day smoker CVA (cerebral vascular accident) Diabetes type 2, uncontrolled Dyslipidemia Elevated troponin Encounter for long-term opiate analgesic use Essential hypertension Fibromyalgia Fibromyalgia, primary Hyperlipidemia, mixed Insomnia Intervertebral disc disorder of lumbar region with myelopathy Leukocytosis Low back pain radiating to both legs Lumbosacral spondylosis without myelopathy NSTEMI (non-ST elevated myocardial infarction) Thought to be secondary to plaque rupture. Angiogram July 04 no flow- limiting lesions, or restenosis of previous stent from April 2020 Obesity (BMI 35.0-39.9 without comorbidity) Opioid contract exists Osteoarthritis of spine at multiple levels Type 2 diabetes mellitus Type 2 diabetes mellitus with diabetic autonomic (poly)neuropathy Vitamin D deficiency Surgical History History of arthroscopic surgery of elbow BILATERAL History of coronary angiogram Angiogram April 2020 with 90% circumflex lesion, drug-eluting stent placed by Dr. Jerome S/p bilateral carpal tunnel release S/P hysterectomy S/P knee surgery RIGHT S/P lumbar fusion DR. Shreya ZAYAS IN [place], [place] L4-L5, L5-S1 Status post left knee replacement Status post lumbar laminectomy Family History Other CAD (coronary artery disease) Cancer Diabetes Social History Smoking and tobacco status: current every day smoker cigarettes [ Other ciga rette details: PER PATIENT REPORT ] Second hand smoke exposure: Yes Smoking risk assessment/counseling performed?: Yes Alcohol intake: former Desire information about alcohol rehabilitation?: No Counseling given: No Desire information about substance/drug rehabilitation?: No Counseling given: No Caregiver/support person: No Lives independently: Yes Household members: family and other Details: son Housing: Manufactured/Mobile home Marital status: Unknown Marital status details: She and son state she is not service: No Current occupational status: unemployed Pets and animals: Yes History of recent travel: No Current gender identity: Female Vitals/I&O/Wt Last Vital Signs Temp 98.0 F 03/16/21 02:17 Pulse 94 03/16/21 05:39 Resp 18 03/16/21 05:39 BP 144/80 03/16/21 05:39 Pulse Ox 95 03/16/21 05:39 Weight last 48 hrs Weight 98.883 kg Physical Exam Narrative: EXAM NARRATIVE: FemaleMorbidly obese who was laying supine in her bed without any active chest pain shortness of breath was saturating well on room air Blood pressure is stable Cola colored urine noticed S1, S2 sinus tachycardia Abdomen soft nontender bowel sound present Bilateral breath sound without adventitious rhonchi or crackles Bilateral pedal edema No sensation below right ankle, she is able to move her toes No strokelike symptoms, no focal deficits, NIH 0 EOMI, PERRLA Appropriate mood and affect Data : 03/16/21 04:45 03/16/21 04:45 A&P Assessment and plan (1) Rhabdomyolysis: Status: Acute Additional A&P Information Rhabdomyolysis CPK 10,000, She has bilateral lower extremity edema, recently was put on increased dose of Lasix, for rhabdomyolysis she will need normal saline fluid resuscitation, I would use 100 mL/h rate for now, to avoid fluid overload with only use Lasix 40 mg daily instead of twice a day No kidney injury noted on BMP Correlate creatinine urine output on hourly basis No signs of acidosis hypocalcemia I would not add any sodium bicarb for now Hypomagnesemia noted, check phosphorus level Normal calcium level Heart failure with preserved ejection fraction Bilateral extremity edema noted Monitor for fluid overload signs and symptoms Continue Lasix 40 mg daily for now No active chest pain Established coronary disease I will continue her Imdur, ranolazine aspirin, Brilinta, hold atorvastatin because of high CPK, her last stent was placed in April she will need dual antiplatelet therapy regimen No active chest pain Hypomagnesemia noted, will replete Peripheral neuropathy Patient takes Lyrica, she has no sensation below her right ankle, No acute fractures No acute kidney injury I would continue her Lyrica She will need PT evaluation before discharge Cardiac diet Moderate sliding scale for type 2 diabetes Full code Attestations Medical Necessity Statement*: Anticipating stay in the hospital because more than 2 midnights for management of recent fall, rhabdomyolysis Time Spent in Patient Care: (>than 50% of time spent in counselling and/or direct pt care on unit) . 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
--- NOTE | 2021-03-16 05:43 | ED_ITS ---
HPI - Fall General: Chief Complaint: Fall Stated Complaint: right hip and shoulder pain Time Seen by Provider: 03/16/21 02:18 History of Present Illness: HPI Narrative: 55-year-old female who fell on the floor from bed around 2-3 o'clock yesterday morning. She presents with significant pain to the right lower extremity. She must of laid in the floor for quite some time. She states EMS came and picked her up and put her back in bed, but she could not move and get to the bathroom at home, so she came in by EMS later this morning. complaint: fall Onset (ago): hour(s) (22) Fall from: out of bed Fall witnessed: no Place fall occurred: home Loss of consciousness: None Prolonged down time: unclear Symptoms prior to fall: none Context: other Location of injury - extremities: Right: shoulder, thigh and ankle Severity: severe Quality: sharp and aching Associated symptoms-after fall: Reports difficulty walking; Denies abdominal pain, chest pain, confusion, headache(s), neck pain or short of breath Review of Systems Const: Denies: fever(s) or chills Eyes: Denies: change in vision ENMT: Denies: throat pain Card: Denies: chest pain Resp: Denies: dyspnea, productive cough or non-productive cough GI: Denies: abdominal pain Musc: Denies: neck pain Neuro: Reports: difficulty walking; Denies: headache(s) or confusion PFSH ED PFSH: Medical History (HFpEF) heart failure with preserved ejection fraction Anemia Atherosclerotic heart disease of [place] coronary artery with other forms of angina pectoris Atherosclerotic heart disease of [place] coronary artery with unspecified angina pectoris CAD (coronary artery disease) Chest pain Chest pain, midsternal Chronic congestive heart failure Chronic left-sided low back pain Chronic obstructive pulmonary disease, unspecified Chronic pain of left knee Congestive heart failure COPD (chronic obstructive pulmonary disease) Coronary artery disease due to type 2 diabetes mellitus Current every day smoker CVA (cerebral vascular accident) Diabetes type 2, uncontrolled Dyslipidemia Elevated troponin Encounter for long-term opiate analgesic use Essential hypertension Fibromyalgia Fibromyalgia, primary Hyperlipidemia, mixed Insomnia Intervertebral disc disorder of lumbar region with myelopathy Leukocytosis Low back pain radiating to both legs Lumbosacral spondylosis without myelopathy NSTEMI (non-ST elevated myocardial infarction) Thought to be secondary to plaque rupture. Angiogram July 04 no flow- limiting lesions, or restenosis of previous stent from April 2020 Obesity (BMI 35.0-39.9 without comorbidity) Opioid contract exists Osteoarthritis of spine at multiple levels Type 2 diabetes mellitus Type 2 diabetes mellitus with diabetic autonomic (poly)neuropathy Vitamin D deficiency Surgical History History of arthroscopic surgery of elbow BILATERAL History of coronary angiogram Angiogram April 2020 with 90% circumflex lesion, drug-eluting stent placed by Dr. Jerome S/p bilateral carpal tunnel release S/P hysterectomy S/P knee surgery RIGHT S/P lumbar fusion DR. Shreya ZAYAS IN [place], [place] L4-L5, L5-S1 Status post left knee replacement Status post lumbar laminectomy Family History Other CAD (coronary artery disease) Cancer Diabetes Social History Smoking and tobacco status: current every day smoker cigarettes [ Other cigarette details: PER PATIENT REPORT ] Second hand smoke exposure: Yes Smoking risk assessment/counseling performed?: Yes Alcohol intake: former Desire information about alcohol rehabilitation?: No Counseling given: No Desire information about substance/drug rehabilitation?: No Counseling given: No Caregiver/support person: No Lives independently: Yes Household members: family and other Details: son Housing: Manufactured/Mobile home Marital status: Unknown Marital status details: She and son state she is not service: No Current occupational status: unemployed Pets and animals: Yes History of recent travel: No Current gender identity: Female Physical Exam Const: COMMON NORMALS: patient oriented x3 and alert GENERAL APPEARANCE: cooperative HENMT: COMMON NORMALS: normocephalic and atraumatic HEAD & SCALP: normocephalic and atraumatic Chest: COMMONS NORMALS: normal inspection of the chest Resp: COMMON NORMALS: normal respiratory effort, No use of accessory muscles and clear to auscultation bilaterally AUSCULTATION: clear to auscultation bilaterally Cardio: COMMON NORMALS: regular rate, regular rhythm and No murmurs present (Cardio) RATE: regular rate RHYTHM: regular rhythm GI: COMMON NORMALS: Normal to inspection, nondistended, normoactive bowel sounds present, Soft to palpation and non-tender PALPATION: Yes Soft to palpation Extremity: NARRATIVE EXTREMITY EXAM: Exam of the right lower extremity reveals significant tenderness over the right hip and right sided pelvis. There are some tenderness at the ankle as well, although much more mild. There is no rotational deformity of the hip. Pulses are intact, capillary refill is sluggish but intact. Sensation grossly intact. Neuro: COMMON NORMALS: patient oriented x3 SENSORIUM/ORIENTATION: Yes alert Course Consultations: Consultation #1: fay Vital Signs: Vital signs: Vital Signs Temperature 98.0 F 03/16/21 02:17 Pulse Rate 94 03/16/21 05:39 Respiratory Rate 18 03/16/21 05:39 Blood Pressure 144/80 03/16/21 05:39 Pulse Oximetry 95 03/16/21 05:39 MDM - Fall MDM Narrative: Medical decision making narrative: 55-year-old patient she presents with right lower extremity pain post fall. She must of had some prolonged downtime. Since the patient was unable to bear weight, catheter was placed to drain the bladder. She had 1600 mL of cola colored urine out in the [place] bag. CK was ordered and is over 10,000. Her white blood cell count is 16. Her CRP is over 100. No definite source of sepsis. She will be admitted for acute rhabdomyolysis. X-ray of the right hip was suspicious for subcapital femoral neck fracture. CT of the bony pelvis is pending for confirmation. Lab Data: Labs: Lab Results 03/16/21 03/16/21 03/16/21 Range/Units 04:45 04:45 04:45 WBC 16.1 H (4.0-10.0) 10^3/ uL RBC 4.19 (4.1-5.3) 10^6/u L Hgb 11.5 (11.5-15.3) g/dL Hct 35.7 L (37.0-47.0) % MCV 85.2 (81-99) fL MCH 27.4 L (28.0-34.0) pg MCHC 32.2 (30.0-36.0) g/dL RDW 16.7 H (12.1-15.1) % Plt Count 500 H (130-400) 10^3/c mm MPV 9.9 (7.4-10.4) fL Neut % (Auto) 70.6 % Lymph % (Auto) 17.3 % [place] % (Auto) 8.6 % Eos % (Auto) 1.9 % Baso % (Auto) 0.5 % Neut # (Auto) 11.37 H (1.8-7.7) 10^3/u L Lymph # (Auto) 2.8 (0.8-4.8) 10^3/u L [place] # (Auto) 1.4 H (0.2-0.9) 10^3/u L Eos # (Auto) 0.3 (0.0-0.8) 10^3/u L Baso # (Auto) 0.1 (0.0-0.1) 10^3/u L Nucleated RBC % (a uto) 0 % Nucleated RBCs # 0.0 /100WBC PT (12.1-14.9) SECO NDS INR (0.8-1.2) APTT (23.9-36.7) SECO NDS Sodium 134 L (136-145) mmol/L Potassium 3.8 (3.5-5.1) mmol/L Chloride 98 (98-107) mmol/L Carbon Dioxide 24 (22-29) mmol/L Anion Gap 15.8 (5-19) BUN 17 (6-20) mg/dL Creatinine 0.7 (0.5-0.9) mg/dL GFR Calculation 87.5 L (90-130) mL/min Glucose 215 H (65-115) mg/dL Calculated Osmolal ity 286 (285-295) mOsm/k g Calcium 8.5 (8.5-10.5) mg/dL Magnesium 1.5 L (1.7-2.3) mg/dL Total Bilirubin 0.3 (0.15-1.2) mg/dL AST 93 H (0-32) U/L ALT 25 (0-33) U/L Alkaline Phosphata se 92 (35-105) IU/L Creatine Kinase 51980 H* (26-192) U/L C-Reactive Protein 115.7 H (0.0-4.9) mg/L Total Protein 6.1 L (6.6-8.7) g/dL Albumin 3.3 L (3.5-5.2) g/dL Globulin 2.8 (1.3-4.6) g/dL Urine Color Yellow (Yellow) Urine Appearance Sl hazy (CLEAR) Urine pH 5 (5-7) Ur Specific Gravit y 1.025 (1.005-1.030) Urine Protein Neg (Negative) Urine Glucose (UA) Norm (Normal) Urine Ketones Negative (Negative) Urine Blood 3+ H (Negative) Urine Nitrate Negative (Negative) Urine Bilirubin Neg (Negative) Urine Urobilinogen Norm (Negative) mg/dL Ur Leukocyte Maria Elena ase Negative (Negative) Urine RBC 15-25 H (0-2) /hpf Urine WBC 0-4 H (0-5) /hpf Ur Squamous Epith Cells 0-4 H (0-5) /hpf Amorphous Sediment Not Reportable Urine Bacteria 2+ H (NONE) /hpf Urine Yeast 2+ H /hpf 03/16/21 Range/Units 05:30 WBC (4.0-10.0) 10^3/ uL RBC (4.1-5.3) 10^6/u L Hgb (11.5-15.3) g/dL Hct (37.0-47.0) % MCV (81-99) fL MCH (28.0-34.0) pg MCHC (30.0-36.0) g/dL RDW (12.1-15.1) % Plt Count (130-400) 10^3/c mm MPV (7.4-10.4) fL Neut % (Auto) % Lymph % (Auto) % [place] % (Auto) % Eos % (Auto) % Baso % (Auto) % Neut # (Auto) (1.8-7.7) 10^3/u L Lymph # (Auto) (0.8-4.8) 10^3/u L [place] # (Auto) (0.2-0.9) 10^3/u L Eos # (Auto) (0.0-0.8) 10^3/u L Baso # (Auto) (0.0-0.1) 10^3/u L Nucleated RBC % (a uto) % Nucleated RBCs # /100WBC PT 14.40 (12.1-14.9) SECO NDS INR 1.08 (0.8-1.2) APTT 32.0 (23.9-36.7) SECO NDS Sodium (136-145) mmol/L Potassium (3.5-5.1) mmol/L Chloride (98-107) mmol/L Carbon Dioxide (22-29) mmol/L Anion Gap (5-19) BUN (6-20) mg/dL Creatinine (0.5-0.9) mg/dL GFR Calculation (90-130) mL/min Glucose (65-115) mg/dL Calculated Osmolal ity (285-295) mOsm/k g Calcium (8.5-10.5) mg/dL Magnesium (1.7-2.3) mg/dL Total Bilirubin (0.15-1.2) mg/dL AST (0-32) U/L ALT (0-33) U/L Alkaline Phosphata se (35-105) IU/L Creatine Kinase (26-192) U/L C-Reactive Protein (0.0-4.9) mg/L Total Protein (6.6-8.7) g/dL Albumin (3.5-5.2) g/dL Globulin (1.3-4.6) g/dL Urine Color (Yellow) Urine Appearance (CLEAR) Urine pH (5-7) Ur Specific Gravit y (1.005-1.030) Urine Protein (Negative) Urine Glucose (UA) (Normal) Urine Ketones (Negative) Urine Blood (Negative) Urine Nitrate (Negative) Urine Bilirubin (Negative) Urine Urobilinogen (Negative) mg/dL Ur Leukocyte Maria Elena ase (Negative) Urine RBC (0-2) /hpf Urine WBC (0-5) /hpf Ur Squamous Epith Cells (0-5) /hpf Amorphous Sediment Urine Bacteria (NONE) /hpf Urine Yeast /hpf Discharge Plan Discharge Admit Provider: Darrell Cunha Condition: Stable Coding Level of Care Code ED Inside 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
[2021-03-16 05:47] LABS: INR 1.08 (0.8-1.2)
[2021-03-16] MEDS: sodium chloride 0.9% 1,000 ML 100 ML IV ×2 (09:29→19:59)
[2021-03-16] MEDS: pregabalin 150 mg Capsule PO ×2 (09:33→19:58)
[2021-03-16] MEDS: aspirin 81 mg Chew Tablet PO (09:33)
[2021-03-16] MEDS: folic acid 1 mg Tablet PO (09:33)
[2021-03-16] MEDS: pantoprazole DR 40 mg Tablet PO (09:33)
[2021-03-16] MEDS: cyanocobalamin 1,000 mcg Tablet 500 MCG PO (09:33)
[2021-03-16] MEDS: isosorbide mononitrate ER 60 mg Tablet PO ×2 (09:34→23:10)
[2021-03-16] MEDS: enoxaparin 40 mg/0.4 mL Syringe SUBCUT (09:34)
[2021-03-16] MEDS: ticagrelor 90 mg Tablet PO ×2 (09:35→23:11)
[2021-03-16] MEDS: ranolazine (12HR) 500 mg Tablet 1000 MG PO ×2 (09:37→23:10)
[2021-03-16] MEDS: acetaminophen 325 mg Tablet 650 MG PO (09:41)
[2021-03-16 11:02] LABS: Creatine Phosphokinase 7780 U/L (26-192)
--- NOTE | 2021-03-16 11:35 | PC.CHAP ---
Pastoral Care Encounter/Spiritual Assessment Type of Contact [] Declined nurse obgyn visit [] Patient/Family/Request visit [] Outpatient visit [] Follow-up visit [] Physician referral [] Code/Alert [] Routine visit [] Staff referral [] Actively dying [] Patient sleeping [] Family support [] [] Out of room [] Palliative care [] [] Receiving care in room [] Pre-surgical visit [] Trauma [] Long length of stay [] ICU visit [] Other: Relational/Emotional Strength [] Patient feels connected with others/family/visitors/staff [] Distress [] Loneliness/isolation [] Abandonment Spirituality of Patient [x] Person of Mary [xxx] Attends Gnosticism of their Mary [x Believes in Prayer [] Reads Bible or Lutheran materials [] There are Spiritual issues to be addressed Bar Waiter/Waitress Interventions [x] Prayer [] Active listening [] Non-anxious presence [] Spiritual/emotional support [] Crisis/trauma care [] Spiritual counseling [] Bereavement support [] Provided bereavement packet [] Provided Bible/devotional materials [] Provided toy/stuffed animal, coloring book to patient or family member [] Provided Communion [] Anointing/[place] [] Salvation [] Completed spiritual assessment [] Other: Impact on Illness or Injury [] Angry [] Fearful [] Anxious [] Often cries [] Exhaustion [] Unable to work [] Unable to attend roman catholic [] Unable to walk/stand [] Unable to read [] Unable to drive [] Unable to eat/drink [] Unable to sleep [] Unable to be with family [] Patient intubated [] Other: Summary Time spent with patient
[2021-03-16 16:41] LABS: Glucose Point of Care 275 mg/dL (70-110)
--- NOTE | 2021-03-16 17:56 | PM.PN ---
Subjective Subjective: Interval history: She states that she is hurting on the right side of her body especially, in the right hip, and also with electrical pain shooting down her right leg, but overall hurting all over. That right hip pain is after a fall at home prior to admission. She had had a pelvis scan in the ER. Vitals/I&O/Wt Last Vital Signs Temp 97.6 F 03/16/21 15:00 Pulse 83 03/16/21 15:00 Resp 16 03/16/21 15:00 BP 101/62 03/16/21 15:00 Pulse Ox 92 03/16/21 15:00 03/16/21 03/16/21 03/16/21 06:59 14:59 22:59 Intake Total 240 / 240 Output Total 960 / 960 Balance -720 / -720 Weight last 48 hrs Weight 98.883 kg Physical Exam Const: COMMON NORMALS: no acute distress and patient oriented x3 GENERAL APPEARANCE: cooperative, anxious and disheveled NUTRITIONAL APPEARANCE: obese HENMT: COMMON NORMALS: oropharynx normal Neck/C-Spine: COMMON NORMALS: no JVD Resp: COMMON NORMALS: normal respiratory effort and clear to auscultation bilaterally AUSCULTATION: clear to auscultation bilaterally Cardio: COMMON NORMALS: no JVD, regular rhythm, S1 normal heart sound present, S2 normal heart sound present and No murmurs present (Cardio) RHYTHM: regular rhythm HEART SOUNDS: S1 normal heart sound present and S2 normal heart sound present GI: COMMON NORMALS: Normal to inspection, nondistended, normoactive bowel sounds present, Soft to palpation and non-tender PALPATION: Yes Soft to palpation Extremity: COMMON NORMALS: no joint enlargement GENERAL: Yes edema (2+) OTHER: Elevating right lower extremity on pillow due to right hip pain Neuro: COMMON NORMALS: patient oriented x3 and moves all extremities Skin: COMMON NORMALS: no rashes or lesions noted GENERAL SKIN EXAM: no rashes or lesions noted OTHER: Venous stasis dermatitis on bilateral lower extremities. Urinary Catheter Management^: [place]: Cath Placed During This Visit: yes Reason for Continuing Indwelling Catheter: Acute Urinary Retention or Obstruction Urinary Catheter Date of Insertion: 03/16/21 Urinary Catheter Time of Insertion: 04:30 Data : 03/16/21 04:45 03/16/21 04:45 A&P Assessment and plan (1) Rhabdomyolysis: CK still elevated, sometimes 780, but improving. Continue IV hydration. Continue monitoring, recheck in the morning. Monitor I&O, renal function. Statin held for now. Discussed with her may benefit from cautiously resuming with monitoring at a later date due to mortality benefit with her history of CAD. She did also sustain a fall prior to admission, this may have contributed to rhabdomyolysis. She is otherwise moving her legs, feet, no sign of compartment syndrome at this time. Status: Acute (2) Right hip pain: No fracture noted on CT pelvis, x-ray femur. Does appear some electric-like pain, possibly from lumbosacral radiculopathy. Cannot add lidocaine patch due to adhesive allergy. Will request capsaicin cream. Given rhabdomyolysis for now hold off NSAIDs. In case no improvement, Systemic steroid can be considered, although with history of diabetes would rather avoid if possible. PT/OT assessment. Status: Acute Additional A&P Information CRP elevation: Elevated CRP, although this appears to be chronic. Previously infected knee joint with MRSA. Urine currently appears in good condition, no erythema, swelling, wound is well-healed. Had been following up with infectious disease. Significant lower back pain appears after the fall. No obvious infection signs on imaging. Afebrile, without tachycardia. Does have leukocytosis. Will request blood cultures. Hypomagnesemia: Replace. Calcium, Phos level okay. Heart failure with preserved ejection fraction: Looks like Lasix were ordered as needed. Will start p.o. Lasix, start IV Lasix. Reassess renal function, CK. Microscopic hematuria: Discussed with her. She denies any urinary symptoms. Urine culture is pending, will follow up. Hold antibiotics for now. In case no UTI, may need reassessment UA to confirm resolution of microscopic hematuria. Otherwise may need additional assessment. Established coronary disease: Continue cardiac medications. Statin held for now. Peripheral neuropathy: Continue Lyrica, tramadol, she also takes Dilaudid. She and her son requested all these medications be restarted. Moderate sliding scale for type 2 diabetes Attestations Medical Necessity Statement*: Continue admission for assessment management of rhabdomyolysis at risk of kidney injury, requiring IV hydration, with CHF. Coding Level of Care Code Acute Seam Finisher for [facility] Fwd Exam Comprehensive Diagnoses Rhabdomyolysis M62.82 Right hip pain M25.551
[2021-03-16] MEDS: FUROsemide 10 mg/mL SDV 4mL 40 MG IVP (19:53)
[2021-03-16] MEDS: magnesium sulfate premix 2 GM/50 ML PIGGYBACK IV (19:58)
--- NOTE | 2021-03-16 21:05 | PC.NURSE ---
This nurse spoke with patient's son Adrian on the phone and updated Adrian of Mrs. Ascencio's current condition. Todays vitals, lab results, current medications, and treatment plan was discussed.
[2021-03-17] VITALS (10 sets, daily range): BP systolic 71–144; BP diastolic 46–84; PULSE 78–98; RESP 16–19; TEMP 36.3–37.2; O2SAT 92–98
[2021-03-17] MEDS: quetiapine 100 mg Tablet PO ×2 (01:42→20:11)
[2021-03-17 05:46] LABS: Basophils # 0.1 10^3/uL (0.0-0.1); Basophils % 0.7 %; Eosinophils # 0.2 10^3/uL (0.0-0.8); Eosinophils % 2.4 %; Hematocrit 33.6 % (37.0-47.0); Hemoglobin 10.8 g/dL (11.5-15.3); Lymphocytes # 3.7 10^3/uL (0.8-4.8); Lymphocytes % 37.8 %; Mean Corpuscular HGB Conc 32.1 g/dL (30.0-36.0); Mean Corpuscular Hemoglobin 27.6 pg (28.0-34.0); Mean Corpuscular Volume 85.9 fL (81-99); Mean Platelet Volume 10.1 fL (7.4-10.4); Monocytes % 10.3 %; Neutrophils # 4.73 10^3/uL (1.8-7.7); Neutrophils % 47.8 %; Nucleated Red Blood Cells % 0 %; Platelet Count 478 10^3/cmm (130-400); Red Blood Count 3.91 10^6/uL (4.1-5.3); Red Cell Distribution Width 16.7 % (12.1-15.1); White Blood Count 9.9 10^3/uL (4.0-10.0)
[2021-03-17 06:07] LABS: Anion Gap 12.4 (5-19); Blood Urea Nitrogen 8 mg/dL (6-20); Calcium 8.3 mg/dL (8.5-10.5); Carbon Dioxide 27 mmol/L (22-29); Chloride 104 mmol/L (98-107); Glomerular Filtration Rate 129.1 mL/min (90-130); Glucose 186 mg/dL (65-115); Osmolality Calculated 293 mOsm/kg (285-295); Potassium 3.4 mmol/L (3.5-5.1); Sodium 140 mmol/L (136-145)
[2021-03-17 06:27] LABS: Slide Review Slide Review Perform
[2021-03-17 06:47] LABS: Creatine Phosphokinase 3630 U/L (26-192)
[2021-03-17] MEDS: folic acid 1 mg Tablet PO (08:27)
[2021-03-17] MEDS: pregabalin 150 mg Capsule PO ×2 (08:27→16:46)
[2021-03-17] MEDS: ticagrelor 90 mg Tablet PO ×2 (08:27→20:10)
[2021-03-17] MEDS: pantoprazole DR 40 mg Tablet PO (08:27)
[2021-03-17] MEDS: aspirin 81 mg Chew Tablet PO (08:28)
[2021-03-17] MEDS: cyanocobalamin 1,000 mcg Tablet 500 MCG PO (08:28)
[2021-03-17] MEDS: isosorbide mononitrate ER 60 mg Tablet PO ×2 (08:28→20:10)
[2021-03-17] MEDS: enoxaparin 40 mg/0.4 mL Syringe SUBCUT (08:30)
[2021-03-17] MEDS: ranolazine (12HR) 500 mg Tablet 1000 MG PO ×2 (08:33→20:10)
[2021-03-17 09:25] LABS: Creatine Phosphokinase 3482 U/L (26-192)
[2021-03-17] MEDS: sodium chloride 0.9% 1,000 ML 100 ML IV (10:18)
[2021-03-17] MEDS: TRAMadol 50 mg Tablet PO ×2 (10:18→18:43)
--- NOTE | 2021-03-17 10:46 | PC.CHAP ---
Pastoral Care Encounter/Spiritual Assessment Type of Contact [] Declined wire insulator visit [] Patient/Family/Request visit [] Outpatient visit [] Follow-up visit [] Physician referral [] Code/Alert [x] Routine visit [] Staff referral [] Actively dying [] Patient sleeping [] Family support [] [] Out of room [] Palliative care [] [x] Receiving care in room [] Pre-surgical visit [] Trauma [] Long length of stay [] ICU visit [] Other: Relational/Emotional Strength [] Patient feels connected with others/family/visitors/staff [] Distress [] Loneliness/isolation [] Abandonment Spirituality of Patient [] Person of Mary [] Attends Holiness of their Mary [] Believes in Prayer [] Reads Bible or Anglican materials [] There are Spiritual issues to be addressed Ibm Bpm Developer Interventions [] Prayer [] Active listening [] Non-anxious presence [] Spiritual/emotional support [] Crisis/trauma care [] Spiritual counseling [] Bereavement support [] Provided bereavement packet [] Provided Bible/devotional materials [] Provided toy/stuffed animal, coloring book to patient or family member [] Provided Communion [] Anointing/[place] [] Salvation [] Completed spiritual assessment [] Other: Impact on Illness or Injury [] Angry [] Fearful [] Anxious [] Often cries [] Exhaustion [] Unable to work [] Unable to attend mosque [] Unable to walk/stand [] Unable to read [] Unable to drive [] Unable to eat/drink [] Unable to sleep [] Unable to be with family [] Patient intubated [] Other: Summary Time spent with patient
--- NOTE | 2021-03-17 14:47 | CTR_ITS ---
PROCEDURE INFORMATION: Exam: CT Lumbar Spine Without Contrast Exam date and time: 03/17/2021 3:09 PM Age: 55 years old Clinical indication: Pain and injury or trauma; Fall; Blunt trauma (contusions or hematomas); Low back pain; Prior surgery; Additional info: Back pain, fall, numbness in right foot TECHNIQUE: Imaging protocol: Computed tomography images of the lumbar spine without contrast. Radiation optimization: All CT scans at this facility use at least one of these dose optimization techniques: automated exposure control; mA and/or kV adjustment per patient size (includes targeted exams where dose is matched to clinical indication); or iterative reconstruction. COMPARISON: [place] [id number] 11/22/2017 11:32 PM RADIATION DOSE METRICS: Total DLP (mGy-cm): 2272.92 FINDINGS: Tubes, catheters and devices: There is intervertebral disc spacer at L4-L5 and L5-S1. Vertebrae: There is posterior spinal fixation of L4, L5 and S1 vertebra. There is acute compression fracture of the superior endplate of L2 vertebra with approximately 10% vertebral height loss. No retropulsion. L1-L2: Disc bulge. Bilateral facet hypertrophy. No spinal canal stenosis. No neural foraminal narrowing. L2-L3: Disc bulge. Bilateral facet hypertrophy. No spinal canal stenosis. Mild bilateral neural foraminal narrowing. L3-L4: Disc bulge. Bilateral facet hypertrophy. No spinal canal stenosis. Mild bilateral neural foraminal narrowing. L4-L5: No significant disc protrusion. No severe spinal canal stenosis. No significant neural foraminal narrowing. L5-S1: Disc osteophyte complex and at the L5-S1 with mild right neural foraminal narrowing. Other bones/joints: Diffuse demineralization of the bones. Soft tissues: Unremarkable. CT/CT lumbar spine wo con* [id number] IMPRESSION: Acute compression fracture of superior endplate of L2 vertebra with approximately 10% vertebral height loss. No retropulsion. Multilevel degenerative disc disease with neural foraminal narrowing. Mild bilateral neural foraminal narrowing at L2-L3 and L3-L4. Mild right neural foraminal narrowing at L5-S1. Radiation Dose CTDIVOL = (mGy): DLP = 2272.92 (mGy-cm)
--- NOTE | 2021-03-17 14:48 | P.PN_ITS ---
Subjective Subjective: Interval history: Hospital course, labs and vitals appreciated. On examination patient sleeping in bed. Wakes up to verbal stimulus. Patient on examination was able to stand by bedside. She is complaining of mild numbness and days of right foot. She denies any nausea, vomiting, headache, dizziness. Blood pressures since morning on the lower side. On further questioning patient is not aware of midodrine. She supposed to be on midodrine as per the discharge summaries. On confirming from pharmacy patient last refill the medication in September. Patient states she has been having on and off dizziness especially while standing up at home because of which she has had few falls. Vitals/I&O/Wt Last Vital Signs Temp 98.9 F 03/17/21 11:53 Pulse 82 03/17/21 11:53 Resp 16 03/17/21 11:53 BP 90/50 03/17/21 11:57 Pulse Ox 94 03/17/21 11:53 03/16/21 03/17/21 03/17/21 22:59 06:59 14:59 Intake Total 1670 / 1910 1000 / 2910 Output Total 3300 / 4260 Balance 1670 / 950 -2300 / -1350 Weight last 48 hrs Weight 98.883 kg Physical Exam Const: COMMON NORMALS: no acute distress and patient oriented x3 GENERAL APPEARANCE: cooperative, anxious and disheveled NUTRITIONAL APPEARANCE: obese HENMT: COMMON NORMALS: oropharynx normal Neck/C-Spine: COMMON NORMALS: no JVD Resp: COMMON NORMALS: normal respiratory effort and clear to auscultation bilaterally AUSCULTATION: clear to auscultation bilaterally Cardio: COMMON NORMALS: no JVD, regular rhythm, S1 normal heart sound present, S2 normal heart sound present and No murmurs present (Cardio) RHYTHM: regular rhythm HEART SOUNDS: S1 normal heart sound present and S2 normal heart sound present GI: COMMON NORMALS: Normal to inspection, nondistended, normoactive bowel sounds present, Soft to palpation and non-tender PALPATION: Yes Soft to palpation Extremity: COMMON NORMALS: no joint enlargement GENERAL: Yes edema (2+) OTHER: Elevating right lower extremity on pillow due to right hip pain Neuro: COMMON NORMALS: patient oriented x3 and moves all extremities Skin: COMMON NORMALS: no rashes or lesions noted GENERAL SKIN EXAM: no rashes or lesions noted OTHER: Venous stasis dermatitis on bilateral lower extremities. Urinary Catheter Management^: [place]: Cath Placed During This Visit: yes Reason for Continuing Indwelling Catheter: Acute Urinary Retention or Obstruction Urinary Catheter Date of Insertion: 03/16/21 Urinary Catheter Time of Insertion: 04:30 Data : 03/17/21 04:50 03/17/21 04:50 Micro: Microbiology 03/16/21 04:45 Urine Culture - Preliminary Urine Catheterized 03/16/21 19:50 Blood Culture - Preliminary Blood SPECIMEN COLLECTED 03/16/21 19:24 Blood Culture - Preliminary Blood SPECIMEN COLLECTED A&P Assessment and plan (1) Rhabdomyolysis: Status: Acute (2) Right hip pain: Status: Acute (3) Fall: Status: Acute Additional A&P Information Fall: Given the low blood pressures today morning cannot rule out because of hypotension at home. Patient is supposed to be on midodrine at home but not taking for last few months as was last filled in September. Patient is not aware of medication. Hold off on antihypertensives for now. Restart home dose of midodrine 5 mg twice daily. Keep mean arterial pressures over 65. Back pain: Given the recent fall cannot rule out lumbar stenosis or fracture. Extensive tenderness on examination. No foot drop or saddle anesthesia. Lumbar CT scan. PT evaluation. Rhabdomyolysis: Most likely because of recurrent falls. Statins held. Continue with IV hydration. CPK to be reviewed every 12 hourly. Right hip pain: No fracture noted on CT scan pelvis on examination. Patient does have electric pain like lumbar sacral radiculopathy. Lumbar CT scan as above. Hypertension: Goal blood pressure less than 140/90 mmHg with mean over 65. Hold off on losartan for now. Start home dose of midodrine. Continue home dose Imdur because of history of CAD and unstable angina. CRP elevation: Elevated CRP, although this appears to be chronic. Previously infected knee joint with MRSA. Urine currently appears in good condition, no erythema, swelling, wound is well-healed. Had been following up with infectious disease. Significant lower back pain appears after the fall. No obvious infection signs on imaging. Afebrile, without tachycardia. Does have leukocytosis. Blood cultures have remained negative for now. Restart home dose of chronic suppression Bactrim. Hypomagnesemia: Replace. Calcium, Phos level okay. Heart failure with preserved ejection fraction: No exacerbation. Continue to monitor. Hold off on Lasix for now. Microscopic hematuria: Discussed with her. She denies any urinary symptoms. Urine culture is pending, will follow up. Hold antibiotics for now. In case no UTI, may need reassessment UA to confirm resolution of microscopic hematuria. Otherwise may need additional assessment. Established coronary disease: Continue cardiac medications. Statin held for no w. Continue home dose of aspirin, ranolazine, Imdur. Peripheral neuropathy: Continue Lyrica, tramadol, she also takes Dilaudid. She and her son requested all these medications be restarted. Moderate sliding scale for type 2 diabetes Continue other chronic medications including Flexeril, Cymbalta, fluticasone. Full code. Cardiac carb consistent diet. DVT prophylaxis. Attestations Medical Necessity Statement*: Patient requires further hospitalization for management of back pain, rhabdomyolysis requiring IV hydration Time Spent in Patient Care: Greater than 35 minutes (>than 50% of time spent in counselling and/or direct pt care on unit) . Coding Level of Care Code Acute Director Of Strategic Partnerships for [facility] Diagnoses Rhabdomyolysis M62.82 Right hip pain M25.551 Fall W19.XXXA
[2021-03-17] MEDS: midodrine 5 mg TABLET PO (20:10)
[2021-03-17 20:20] LABS: Creatine Phosphokinase 2650 U/L (26-192)
[2021-03-18] VITALS: BP 117/65; PULSE 95; RESP 18; TEMP 36.8; O2SAT 99
[2021-03-18] MEDS: sodium chloride 0.9% 1,000 ML 100 ML IV (00:12)
[2021-03-18 04:00] VITALS: BP 146/83; PULSE 86; RESP 18; TEMP 37; O2SAT 94
[2021-03-18 06:01] LABS: Basophils # 0.1 10^3/uL (0.0-0.1); Basophils % 0.6 %; Eosinophils # 0.3 10^3/uL (0.0-0.8); Eosinophils % 2.8 %; Hematocrit 34.1 % (37.0-47.0); Hemoglobin 10.8 g/dL (11.5-15.3); Lymphocytes # 3.7 10^3/uL (0.8-4.8); Lymphocytes % 34.1 %; Mean Corpuscular HGB Conc 31.7 g/dL (30.0-36.0); Mean Corpuscular Hemoglobin 27.6 pg (28.0-34.0); Mean Corpuscular Volume 87.2 fL (81-99); Mean Platelet Volume 10.1 fL (7.4-10.4); Monocytes # 1.1 10^3/uL (0.2-0.9); Monocytes % 10.5 %; Neutrophils # 5.48 10^3/uL (1.8-7.7); Neutrophils % 50.3 %; Nucleated Red Blood Cells % 0 %; Platelet Count 520 10^3/cmm (130-400); Red Blood Count 3.91 10^6/uL (4.1-5.3); Red Cell Distribution Width 16.8 % (12.1-15.1); White Blood Count 10.9 10^3/uL (4.0-10.0)
[2021-03-18 06:34] LABS: Alanine Aminotransferase 16 U/L (0-33); Alkaline Phosphatase 78 IU/L (35-105); Anion Gap 12.7 (5-19); Aspartate Amino Transferase 30 U/L (0-32); Blood Urea Nitrogen 8 mg/dL (6-20); Calcium 8.7 mg/dL (8.5-10.5); Carbon Dioxide 26 mmol/L (22-29); Chloride 105 mmol/L (98-107); Globulin 2.9 g/dL (1.3-4.6); Glomerular Filtration Rate 129.1 mL/min (90-130); Glucose 184 mg/dL (65-115); Osmolality Calculated 293 mOsm/kg (285-295); Potassium 3.7 mmol/L (3.5-5.1); Sodium 140 mmol/L (136-145); Total Bilirubin 0.2 mg/dL (0.15-1.2); Total Protein 5.9 g/dL (6.6-8.7)
[2021-03-18 07:14] LABS: Slide Review Slide Review Perform
[2021-03-18 07:43] VITALS: BP 130/80; PULSE 86; RESP 18; TEMP 36.6; O2SAT 98
[2021-03-18] MEDS: TRAMadol 50 mg Tablet PO ×2 (08:35→14:06)
[2021-03-18] MEDS: aspirin 81 mg Chew Tablet PO (08:36)
[2021-03-18] MEDS: cyanocobalamin 1,000 mcg Tablet 500 MCG PO (08:36)
[2021-03-18] MEDS: folic acid 1 mg Tablet PO (08:36)
[2021-03-18] MEDS: pantoprazole DR 40 mg Tablet PO (08:36)
[2021-03-18] MEDS: duloxetine 60 mg Capsule PO (08:36)
[2021-03-18] MEDS: midodrine 5 mg TABLET PO (08:44)
[2021-03-18] MEDS: ticagrelor 90 mg Tablet PO (08:44)
[2021-03-18] MEDS: isosorbide mononitrate ER 60 mg Tablet PO (08:44)
[2021-03-18] MEDS: pregabalin 150 mg Capsule PO (08:44)
[2021-03-18] MEDS: sulfamethoxazole-trimeth DS 160-800 mg Tablet 0.5 TAB PO (08:44)
[2021-03-18] MEDS: ranolazine (12HR) 500 mg Tablet 1000 MG PO (08:44)
[2021-03-18] MEDS: enoxaparin 40 mg/0.4 mL Syringe SUBCUT (08:44)
[2021-03-18 09:12] LABS: Creatine Phosphokinase 1641 U/L (26-192)
--- NOTE | 2021-03-18 10:16 | PC.CHAP ---
Pastoral Care Encounter/Spiritual Assessment Type of Contact [] Declined nursery teacher visit [] Patient/Family/Request visit [] Outpatient visit [] Follow-up visit [] Physician referral [] Code/Alert [x] Routine visit [] Staff referral [] Actively dying [] Patient sleeping [] Family support [] [] Out of room [] Palliative care [] [] Receiving care in room [] Pre-surgical visit [] Trauma [] Long length of stay [] ICU visit [] Other: Relational/Emotional Strength [] Patient feels connected with others/family/visitors/staff [] Distress [] Loneliness/isolation [] Abandonment Spirituality of Patient x] Person of Mary [] Attends Confucianist of their Mary [] Believes in Prayer [] Reads Bible or Mandaeism materials [] There are Spiritual issues to be addressed B2B Sales Consultant Interventions [x] Prayer [] Active listening [] Non-anxious presence [] Spiritual/emotional support [] Crisis/trauma care [] Spiritual counseling [] Bereavement support [] Provided bereavement packet [] Provided Bible/devotional materials [] Provided toy/stuffed animal, coloring book to patient or family member [] Provided Communion [] Anointing/[place] [] Salvation [] Completed spiritual assessment [] Other: Impact on Illness or Injury [] Angry [] Fearful [] Anxious [] Often cries [] Exhaustion [] Unable to work [] Unable to attend religion [] Unable to walk/stand [] Unable to read [] Unable to drive [] Unable to eat/drink [] Unable to sleep [] Unable to be with family [] Patient intubated [] Other: Summary [id number] [email or web address] galvan today she s doing good little pain Time spent with patient 10 min
[2021-03-18 12:00] VITALS: BP 142/84; PULSE 84; RESP 16; TEMP 37.1; O2SAT 96
--- NOTE | 2021-03-18 12:51 | P.DS_ITS ---
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 Ramos & orthopedics, has oxygen dependent COPD uses 2 L of oxygen, active smoker, presenting today after sustaining a fall at home. 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 Because of these concerns she was brought to the hospital. She is denying chest pain, syncopal event, seizure-like activities, recent fever, shortness of breath. She is smoking half a pack a day. She uses a walker for ambulation. 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 She has not noticed any stroke-like symptoms. Diagnostics in the ER revealed rhabdomyolysis, hip x-ray was concerning for subtle fracture changes versus osteoarthritis for which CT scanning pelvis was requested which did not show any acute fractures, she has moderate leukocytosis, stable hemoglobin, no kidney function abnormality, CPK 10,000, hypomagnesemia, normal calcium level despite low albumin, she was able to void in the ER, cola colored urine noticed. Patient went to the hospital for further management of rhabdomyolysis and work- up for fall. Patient was started on gentle hydration by monitoring the fluid status. Patient's rhabdomyolysis gradually improved. During hospitalization patient was found to have borderline low blood pressures. On further interviewing it was recognized that patient has not been taking her midodrine for last 2 months as she forgot to refill her medications. Antihypertensives were withheld and midodrine was restarted after which her blood pressures improved quite a bit. Patient has been counseled detail regarding need of m idodrine. During hospitalization patient was complaining of right hip pain, back pain and right foot parasthesia. Multiple imaging were done which revealed fractures of L2 vertebrae. Patient's care was discussed in detail over the phone with Dr. Gomez who agreed to see the patient as an outpatient. Patient worked well with physical therapy. Patient is been discharged hemodynamically stable condition with advice is as above. Physical Exam Const: COMMON NORMALS: no acute distress and patient oriented x3 GENERAL APPEARANCE: cooperative, anxious and disheveled NUTRITIONAL APPEARANCE: obese HENMT: COMMON NORMALS: oropharynx normal Neck/C-Spine: COMMON NORMALS: no JVD Resp: COMMON NORMALS: normal respiratory effort and clear to auscultation bilaterally AUSCULTATION: clear to auscultation bilaterally Cardio: COMMON NORMALS: no JVD, regular rhythm, S1 normal heart sound present, S2 normal heart sound present and No murmurs present (Cardio) RHYTHM: regular rhythm HEART SOUNDS: S1 normal heart sound present and S2 normal heart sound present GI: COMMON NORMALS: Normal to inspection, nondistended, normoactive bowel sounds present, Soft to palpation and non-tender PALPATION: Yes Soft to palpation : COMMON NORMALS: Yes no CVA tenderness BLADDER/KIDNEY EXAM: Yes no CVA tenderness Back/Pelvis: COMMON NORMALS: no CVA tenderness LUMBAR SPINE/LOWER BACK: Yes pain with ROM, Yes lumbar spinal tenderness and Yes paraspinal muscle tenderness Extremity: COMMON NORMALS: no joint enlargement GENERAL: Yes edema (2+) OTHER: Elevating right lower extremity on pillow due to right hip pain Neuro: COMMON NORMALS: patient oriented x3 and moves all extremities Skin: COMMON NORMALS: no rashes or lesions noted GENERAL SKIN EXAM: no rashes or lesions noted OTHER: Venous stasis dermatitis on bilateral lower extremities. Urinary Catheter Management^: [place]: Cath Placed During This Visit: yes, but has since been removed by the nurse Reason for Continuing Indwelling Catheter: Does Not Meet Criteria Urinary Catheter Date of Insertion: 03/16/21 Urinary Catheter Time of Insertion: 04:30 Date Urinary Catheter Removed: 03/17/21 Time Urinary Catheter Discontinued: 17:56 Discharge Data Data Completed and Pending: Completed Studies During Hospitalization Category Date Time Status CT bony pelvis 72 192 Urgent Cat Scan 03/16/21 03:[address] lumbar spine w o con* [id number] Routi ne Cat Scan 03/17/21 14:47 Completed XR ankle RT min 3 V* [id number] Stat Exams 03/16/21 02:34 Completed XR femur RT min 2 V* [id number] Stat Exams 03/16/21 02:34 Completed XR shoulder RT mi n 2V* [id number] Stat Exams 03/16/21 02:34 Completed Pending at discharge Category Date Time Status Blood Culture Sta t Lab 03/16/21 19:50 Results Creatine Phosphok inase Q12H Lab 03/18/21 19:49 Ordered Labs from last 24 hours 03/18/21 03/18/21 03/18/21 05:12 05:12 05:12 WBC 10.9 H RBC 3.91 L Hgb 10.8 L Hct 34.1 L MCV 87.2 MCH 27.6 L MCHC 31.7 RDW 16.8 H Plt Count 520 H MPV 10.1 Neut % (Auto) 50.3 Lymph % (Auto) 34.1 [place] % (Auto) 10.5 Eos % (Auto) 2.8 Baso % (Auto) 0.6 Neut # (Auto) 5.48 Lymph # (Auto) 3.7 [place] # (Auto) 1.1 H Eos # (Auto) 0.3 Baso # (Auto) 0.1 Nucleated RBC % (a uto) 0 Nucleated RBCs # 0.0 Sodium 140 Potassium 3.7 Chloride 105 Carbon Dioxide 26 Anion Gap 12.7 BUN 8 Creatinine 0.5 GFR Calculation 129.1 Glucose 184 H Calculated Osmolal ity 293 Calcium 8.7 Total Bilirubin 0.2 AST 30 ALT 16 Alkaline Phosphata se 78 Creatine Kinase 1641 H* Total Protein 5.9 L Albumin 3.0 L Globulin 2.9 03/17/21 19:39 WBC RBC Hgb Hct MCV MCH MCHC RDW Plt Count MPV Neut % (Auto) Lymph % (Auto) [place] % (Auto) Eos % (Auto) Baso % (Auto) Neut # (Auto) Lymph # (Auto) [place] # (Auto) Eos # (Auto) Baso # (Auto) Nucleated RBC % (a uto) Nucleated RBCs # Sodium Potassium Chloride Carbon Dioxide Anion Gap BUN Creatinine GFR Calculation Glucose Calculated Osmolal ity Calcium Total Bilirubin AST ALT Alkaline Phosphata se Creatine Kinase 2650 H* Total Protein Albumin Globulin Addt'l Data from Hospital Stay: Laboratory Results WBC 10.9 10^3/uL (4.0 -10.0) H 03/18/21 05:12 RBC 3.91 10^6/uL (4.1 -5.3) L 03/18/21 05:12 Hgb 10.8 g/dL (11.5-1 5.3) L 03/18/21 05:12 Hct 34.1 % (37.0-47.0 ) L 03/18/21 05:12 MCV 87.2 fL (81-99) 03/18/21 05:12 MCH 27.6 pg (28.0-34. 0) L 03/18/21 05:12 MCHC 31.7 g/dL (30.0-3 6.0) 03/18/21 05:12 RDW 16.8 % (12.1-15.1 ) H 03/18/21 05:12 Plt Count 520 10^3/cmm (130 -400) H 03/18/21 05:12 MPV 10.1 fL (7.4-10.4 ) 03/18/21 05:12 Neut % (Auto) 50.3 % 03/18/21 05:12 Lymph % (Auto) 34.1 % 03/18/21 05:12 [place] % (Auto) 10.5 % 03/18/21 05:12 Eos % (Auto) 2.8 % 03/18/21 05:12 Baso % (Auto) 0.6 % 03/18/21 05:12 Neut # (Auto) 5.48 10^3/uL (1.8 -7.7) 03/18/21 05:12 Lymph # (Auto) 3.7 10^3/uL (0.8- 4.8) 03/18/21 05:12 [place] # (Auto) 1.1 10^3/uL (0.2- 0.9) H 03/18/21 05:12 Eos # (Auto) 0.3 10^3/uL (0.0- 0.8) 03/18/21 05:12 Baso # (Auto) 0.1 10^3/uL (0.0- 0.1) 03/18/21 05:12 Nucleated RBC % (a uto) 0 % 03/18/21 05:12 Nucleated RBCs # 0.0 /100WBC 03/18/21 05:12 PT 14.40 SECONDS (12 .1-14.9) 03/16/21 05:30 INR 1.08 (0.8-1.2) 03/16/21 05:30 APTT 32.0 SECONDS (23. 9-36.7) 03/16/21 05:30 Sodium 140 mmol/L (136-1 45) 03/18/21 05:12 Potassium 3.7 mmol/L (3.5-5 .1) 03/18/21 05:12 Chloride 105 mmol/L (98-10 7) 03/18/21 05:12 Carbon Dioxide 26 mmol/L (22-29) 03/18/21 05:12 Anion Gap 12.7 (5-19) 03/18/21 05:12 BUN 8 mg/dL (6-20) 03/18/21 05:12 Creatinine 0.5 mg/dL (0.5-0. 9) 03/18/21 05:12 GFR Calculation 129.1 mL/min (90- 130) 03/18/21 05:12 Glucose 184 mg/dL (65-115 ) H 03/18/21 05:12 POC Glucose 275 mg/dL (70-110 ) H 03/16/21 16:36 Calculated Osmolal ity 293 mOsm/kg (285- 295) 03/18/21 05:12 Calcium 8.7 mg/dL (8.5-10 .5) 03/18/21 05:12 Magnesium 1.5 mg/dL (1.7-2. 3) L 03/16/21 04:45 Total Bilirubin 0.2 mg/dL (0.15-1 .2) 03/18/21 05:12 AST 30 U/L (0-32) 03/18/21 05:12 ALT 16 U/L (0-33) 03/18/21 05:12 Alkaline Phosphata se 78 IU/L (35-105) 03/18/21 05:12 Creatine Kinase 1641 U/L (26-192) H* 03/18/21 05:12 C-Reactive Protein 115.7 mg/L (0.0-4 .9) H 03/16/21 04:45 Total Protein 5.9 g/dL (6.6-8.7 ) L 03/18/21 05:12 Albumin 3.0 g/dL (3.5-5.2 ) L 03/18/21 05:12 Globulin 2.9 g/dL (1.3-4.6 ) 03/18/21 05:12 Urine Color Yellow (Yellow) 03/16/21 04:45 Urine Appearance Sl hazy (CLEAR) 03/16/21 04:45 Urine pH 5 (5-7) 03/16/21 04:45 Ur Specific Gravit y 1.025 (1.005-1.0 30) 03/16/21 04:45 Urine Protein Neg (Negative) 03/16/21 04:45 Urine Glucose (UA) Norm (Normal) 03/16/21 04:45 Urine Ketones Negative (Negati ve) 03/16/21 04:45 Urine Blood 3+ (Negative) H 03/16/21 04:45 Urine Nitrate Negative (Negati ve) 03/16/21 04:45 Urine Bilirubin Neg (Negative) 03/16/21 04:45 Urine Urobilinogen Norm mg/dL (Negat tushar) 03/16/21 04:45 Ur Leukocyte Maria Elena ase Negative (Negati ve) 03/16/21 04:45 Urine RBC 15-25 /hpf (0-2) H 03/16/21 04:45 Urine WBC 0-4 /hpf (0-5) H 03/16/21 04:45 Ur Squamous Epith Cells 0-4 /hpf (0-5) H 03/16/21 04:45 Amorphous Sediment Not Reportable 03/16/21 04:45 Urine Bacteria 2+ /hpf (NONE) H 03/16/21 04:45 Urine Yeast 2+ /hpf H 03/16/21 04:45 Impressions Ankle X-Ray 03/16/21 02:34 IMPRESSION: No acute fracture. There is soft tissue edema. Femur X-Ray 03/16/21 02:34 IMPRESSION: Questionable subtle femoral neck fracture versus degenerative changes at the femoral head neck junction. Correlation with CT may be considered if clinically warranted. Shoulder X-Ray 03/16/21 02:34 IMPRESSION: No acute findings. Pelvis CT 03/16/21 03:57 IMPRESSION: No acute fracture. Radiation Dose CTDIVOL = (mGy): DLP = 907.91 (mGy-cm) Lumbar Spine CT 03/17/21 14:47 IMPRESSION: Acute compression fracture of superior endplate of L2 vertebra with approximately 10% vertebral height loss. No retropulsion. Multilevel degenerative disc disease with neural foraminal narrowing. Mild bilateral neural foraminal narrowing at L2-L3 and L3-L4. Mild right neural foraminal narrowing at L5-S1. Radiation Dose CTDIVOL = (mGy): DLP = 2272.92 (mGy-cm) Vitals: Last Vital Signs Temp 98.8 F 03/18/21 12:00 Pulse 84 03/18/21 12:00 Resp 16 03/18/21 12:00 BP 142/84 03/18/21 12:00 Pulse Ox 96 03/18/21 12:00 Discharge Plan Discharge Patient Disposition: Home Health Service Condition: Stable Prescriptions: Continued cyclobenzaprine 10 mg tablet 10 mg PO TID PRN (Reason: muscle spasm) 30 Days Qty: 90 RF: 1 duloxetine 60 mg capsule, delayed rel sprinkle 60 mg PO DAILY@08 30 Days Qty: 30 RF: 1 sulfamethoxazole-trimethoprim [Bactrim] 400-80 mg tablet 1 tab PO DAILY Qty: 30 RF: 2 topiramate 50 mg tablet 50 mg PO BID@, RF: 0 pantoprazole [Protonix] 40 mg tablet,delayed release (DR/EC) 40 mg PO DAILY@08 RF: 0 lidocaine 5 % adhesive patch,medicated 1 patch topical DAILY Qty: 30 RF: 2 albuterol sulfate [Ventolin HFA] 90 mcg/actuation HFA aerosol inhaler 2 puff INHALATION QID PRN (Reason: shortness of breath or wheezing) 30 Days Qty: 6.7 RF: 2 budesonide-formoterol [Symbicort] 160-4.5 mcg/actuation HFA aerosol inhaler 2 puff INHALATION Q12H Qty: 10.2 RF: 2 quetiapine 100 mg tablet 100 mg PO .qhs Qty: 30 RF: 2 Levemir FlexTouch U-100 Insuln 100 unit/mL (3 mL) insulin pen 20 unit SUBCUT DAILY@08 Qty: 15 RF: 2 metformin 500 mg tablet extended release 24 hr 1,000 mg PO BID Qty: 120 RF: 2 cetirizine [Zyrtec] 10 mg tablet 10 mg PO DAILY PRN (Reason: allergy symptoms) Qty: 30 RF: 1 fluticasone propionate [Flonase Allergy Relief] 50 mcg/actuation spray,suspension 2 spray intranasal DAILY Qty: 16 RF: 2 nitroglycerin 0.4 mg tablet, sublingual See Rx Instructions .ROUTE .COMPLEX Qty: 25 RF: 3 furosemide [Lasix] 40 mg tablet 40 mg PO BID@0800,2100 PRN (Reason: Edema) Qty: 60 RF: 12 atorvastatin 80 mg tablet 80 mg PO DAILY Qty: 30 RF: 2 losartan 50 mg tablet 50 mg PO DAILY@0800 Qty: 30 RF: 0 midodrine 5 mg tablet 5 mg PO BID@0800,2100 Qty: 60 RF: 0 ranolazine 500 mg tablet extended release 12 hr 1,000 mg PO BID@,21 RF: 0 Brilinta 90 mg tablet 90 mg PO BID@,21 RF: 0 aspirin 81 mg Tablet,Chewable 81 mg PO DAILY@08 RF: 0 acetaminophen 325 mg Tablet 650 mg PO Q6H PRN (Reason: Mild/Mod Pain Or Temp >/= 101) Qty: 30 RF: 0 cyanocobalamin (vitamin B-12) [Vitamin B-12] 1,000 mcg Tablet 500 mcg PO DAILY Qty: 30 RF: 0 potassium chloride 20 mEq Tablet Extended Release 20 meq PO DAILY@08 RF: 0 Santyl 250 unit/gram Ointment 1 applic TOPICAL DAILY RF: 0 isosorbide mononitrate 60 mg tablet extended release 24 hr 60 mg PO BID@08,21 RF: 0 ergocalciferol (vitamin D2) 1,250 mcg (50,000 unit) capsule 1,250 mcg PO Q7D RF: 0 diclofenac sodium 1 % Gel See Rx Instructions .ROUTE .COMPLEX RF: 0 tramadol [Ultram] 50 mg tablet 50 mg PO .5 times a day PRN (Reason: pain) RF: 0 hydromorphone 2 mg tablet 2 mg PO TID@0800,1200,1800 RF: 0 folic acid 1 mg tablet 1 mg PO DAILY@0800 RF: 0 ferrous sulfate 325 mg (65 mg iron) tablet,delayed release (DR/EC) 325 mg PO BID@0800,2100 RF: 0 pregabalin [Lyrica] 150 mg capsule 150 mg PO BID@0800,1800 RF: 0 Discharge Orders: Discharge Order (Routine); Ordered 03/18/21 Ordered By: Cornelius Joyce Referrals: Mata Gomez DO [Physician] - 4-7 days Naomy Goodwin FNP [Primary Care Provider] - 7-10 days Patient Instructions: Opioid Safety Activity Restrictions/Additional Instructions: Please follow-up with your primary care provider within next 7 to 10 days. Please follow-up with Dr. Gomez from orthopedic surgery within next 1 to 3 days to discuss further plan about vertebral fracture. He was supposed to be on midodrine 5 mg twice a day going forward for orthostatic hypotension and low blood pressures. Discharge Attestations Time Spent in Discharge Care*: greater than 30 min Specific Discharge Activities: educating patient, discussing with pcp/other providers, discussing with patient case manager/social workers/dc planners, documenting/other paperwork and evaluating patient/reviewing data Status at Discharge: Cognitive status at discharge: mildly impaired cognition , Behavioral status at discharge: cooperative , Functional status at discharge: uses cane/walker Overall status at discharge: patient is back to baseline Quality Metrics Clinical Quality Measures During this hospital stay, did patient experience: None Coding Level of Care Code Acute g DC note Diagnoses Rhabdomyolysis M62.82 Right hip pain M25.551 Fall W19.XXXA
--- NOTE | 2021-03-18 14:10 | PC.NURSE ---
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
[2021-03-18 15:29] VITALS: BP 142/84; PULSE 84; RESP 16; TEMP 37.1; O2SAT 96
--- NOTE | 2021-03-18 16:37 | PC.RESP ---
Smoking Cessation and Pulmonary Rehab information sent to patient.
== END 2021-03-18 15:32 | disposition home health service (06) | DRG 558 ==
LOC: ER 05:55 → MEDSURG 05:58
PROVIDERS: Internal Medicine; Admitting Provider Internal Medicine; Emergency Provider Emergency Medicine; PCP Nurse Practitioner Family; Visit Provider Student in an Organized Health Care Education/Training Program
DX: M62.82 Rhabdomyolysis (principal); S32.028A Other fracture of second lumbar vertebra, initial encounter for closed fracture; I50.32 Chronic diastolic (congestive) heart failure; I25.110 Atherosclerotic heart disease of native coronary artery with unstable angina pectoris; I11.0 Hypertensive heart disease with heart failure; M25.511 Pain in right shoulder; M25.551 Pain in right hip; J44.9 Chronic obstructive pulmonary disease, unspecified; D72.829 Elevated white blood cell count, unspecified; R31.21 Asymptomatic microscopic hematuria; E11.42 Type 2 diabetes mellitus with diabetic polyneuropathy; F17.210 Nicotine dependence, cigarettes, uncomplicated; E83.42 Hypomagnesemia; I25.2 Old myocardial infarction; E78.5 Hyperlipidemia, unspecified; E66.9 Obesity, unspecified; Z99.81 Dependence on supplemental oxygen; Z79.82 Long term (current) use of aspirin; Z79.4 Long term (current) use of insulin; Z91.81 History of falling; Z86.73 Personal history of transient ischemic attack (TIA), and cerebral infarction without residual deficits; Z95.5 Presence of coronary angioplasty implant and graft; Z68.35 Body mass index [BMI] 35.0-35.9, adult; W06.XXXA Fall from bed, initial encounter
CPT/HCPCS: 36415; 36416; 51702; 72131; 72192; 73030; 73552; 73610; 80048; 80053; 81001; 82550; 82962; 83735; 85025; 85610; 85730; 86140; 87040; 87086; 96372; 96374; 96376; 97116; 97162; 97166; 99285; J1170; J1650; J1815; J1940; J3475; J7030

== ENCOUNTER → 2021-03-31 09:01 | Outpatient (BNVA) | payer MEDICARE, MEDICAID, SELFPAY | PROVIDERS: PCP Nurse Practitioner Family; Visit Provider Anesthesiology | DX: G89.29 Other chronic pain (principal); S32.020A Wedge compression fracture of second lumbar vertebra, initial encounter for closed fracture; M54.9 Dorsalgia, unspecified; W06.XXXA Fall from bed, initial encounter; M47.817 Spondylosis without myelopathy or radiculopathy, lumbosacral region; X58.XXXA Exposure to other specified factors, initial encounter; M25.551 Pain in right hip; F17.210 Nicotine dependence, cigarettes, uncomplicated; Z79.891 Long term (current) use of opiate analgesic | CPT/HCPCS: 72100; 99213; 99214 ==

== ENCOUNTER 2021-04-02 09:05 | Outpatient (CLI) | payer MEDICARE, MEDICAID, SELFPAY ==
--- NOTE | 2021-04-02 09:30 | MR_ITS ---
WS: [id number] MRI LUMBAR SPINE NONCONTRAST TECHNIQUE: Sagittal T1, T2 and STIR imaging. Axial T1 and T2 imaging. CLINICAL INFORMATION: S32.020A - Wedge compression fracture of second lumbar ve... COMPARISON: CT March 17, 2021 FINDINGS: Mild compression superior endplate L2 with endplate Schmorl's node is unchanged from previous. No ananda ma in the L2 superior endplate. No retropulsion. Pedicle screw fixation L4-S1 with interbody fusion g rafts. Tiny central protrusion T12-L1. L1-L2: Normal. L2-L3: Normal. L3-L4: No significant disc bulging. Mild facet arthropathy. Spinal canal and foramen are patent. Mild facet arthropathy. L4-L5: Pedicle screw fixation with interbody fusion. Spinal canal and foramen are patent. Laminectomy defects. L5-S1: Pedicle screw fixation with interbody fusion. Laminectomy defects. Visualized pelvic bony structures: Normal. Paravertebral soft tissues: Normal. MR/MR lumbar spine wo con* [id number] IMPRESSION: 1. Mild compression superior endplate L2 is unchanged with endplate Schmorl's node. No edema in the L2 vertebral body. 2. Pedicle screw fixation L4-S1 with interbody fusion grafts. 3. No significant spinal canal or foraminal narrowing. 4. Mild facet arthropathy L3-4. 5. Tiny central protrusion T12-L1.
== END 2021-04-02 09:06 | disposition home or self-care (01) ==
LOC: RADSHAW 09:09
PROVIDERS: PCP Nurse Practitioner Family; Visit Provider Orthopaedic Surgery
DX: S32.020A Wedge compression fracture of second lumbar vertebra, initial encounter for closed fracture (principal); X58.XXXA Exposure to other specified factors, initial encounter; M51.25 Other intervertebral disc displacement, thoracolumbar region; M47.816 Spondylosis without myelopathy or radiculopathy, lumbar region
CPT/HCPCS: 72148

== ENCOUNTER → 2021-04-16 15:20 | Outpatient (BNVA) | payer MEDICARE, MEDICAID, SELFPAY | PROVIDERS: PCP Nurse Practitioner Family; Visit Provider Orthopaedic Surgery | DX: Z01.812 Encounter for preprocedural laboratory examination (principal); Z20.822 Contact with and (suspected) exposure to COVID-19 | CPT/HCPCS: 87635 ==

== ENCOUNTER → 2021-04-17 12:11 | Day surgery (SDC) | payer MEDICARE, MEDICAID, SELFPAY | PROVIDERS: PCP Nurse Practitioner Family; Visit Provider Orthopaedic Surgery | DX: Z01.818 Encounter for other preprocedural examination (principal); Z01.812 Encounter for preprocedural laboratory examination; Z20.822 Contact with and (suspected) exposure to COVID-19 | CPT/HCPCS: 87635; 93005 ==

== ENCOUNTER 2021-04-22 09:42 | Day surgery (SDC) | payer MEDICARE, MEDICAID, SELFPAY ==
--- NOTE | 2021-04-16 10:03 | ECG_ITS ---
[facility] Test Date: 2021-04-16 Pat Name: Mayra Ascencio Department: Room: Gender: Female Nutrition Services Manager: : 1965 Requested By: Jerrell Barba Order Number: [id number] Ashlee MD: Brad Lyles M.D. Measurements Intervals [place] Rate: 88 P: 25 PA: 210 QRS: 18 QRSD: 90 T: 67 QT: 388 QTc: 471 Interpretive Statements SINUS RHYTHM WITH FIRST DEGREE AV BLOCK NONSPECIFIC ST & T-WAVE ABNORMALITY Compared to ECG 01/15/2021 16:06:42 First degree AV block now present T-wave abnormality still present Electronically Signed On 04-16-2021 20:38:16 CDT by Brad Lyles M.D. [id number]
[2021-04-16 10:26] LABS: Basophils # 0.1 10^3/uL (0.0-0.1); Basophils % 0.9 %; Eosinophils # 0.6 10^3/uL (0.0-0.8); Eosinophils % 4.4 %; Hematocrit 39.1 % (37.0-47.0); Hemoglobin 12.5 g/dL (11.5-15.3); Lymphocytes # 3.7 10^3/uL (0.8-4.8); Lymphocytes % 28.8 %; Mean Corpuscular Hemoglobin 27.4 pg (28.0-34.0); Mean Corpuscular Volume 85.7 fL (81-99); Mean Platelet Volume 9.6 fL (7.4-10.4); Monocytes # 0.9 10^3/uL (0.2-0.9); Monocytes % 7.2 %; Neutrophils # 7.28 10^3/uL (1.8-7.7); Neutrophils % 56.6 %; Nucleated Red Blood Cells % 0 %; Platelet Count 493 10^3/cmm (130-400); Red Blood Count 4.56 10^6/uL (4.1-5.3); Red Cell Distribution Width 15.3 % (12.1-15.1); White Blood Count 12.9 10^3/uL (4.0-10.0)
[2021-04-16 10:47] LABS: Anion Gap 15.5 (5-19); Blood Urea Nitrogen 9 mg/dL (6-20); Calcium 8.6 mg/dL (8.5-10.5); Carbon Dioxide 25 mmol/L (22-29); Chloride 100 mmol/L (98-107); Glomerular Filtration Rate 104.6 mL/min (90-130); Glucose 230 mg/dL (65-115); Osmolality Calculated 288 mOsm/kg (285-295); Potassium 4.5 mmol/L (3.5-5.1); Sodium 136 mmol/L (136-145)
--- NOTE | 2021-04-16 10:52 | P.ANESASSM_ITS ---
Pre-Anesthetic Assessment Pre-Anesthetic Assessment: Height/Weight: Height 1.68 m Preop Diagnosis: Deep infection left total knee Proposed Procedure: Operation Date: 04/22/21 12:20 Proposed Procedures p PLIF L3/4 with hardware removal of spine 22041, 27910, 46835, 28104, 92443, 32516, 46025 m48.06(Not Applicable) - Mata Gomez, DO Was Beta Jose L taken within 24 hours: N/A Was Clonidine taken within 24 h ours: N/A Social: Social History: Tobacco and No alcohol Exam: Pre-Anes Outpt Exam: alert, oriented x 3 and regular rate & rhythm Additional Exam Findings (including area of procedure): Rhonchi--heavy smoker Airway: Submandibular: WNL Cervical ROM: WNL MP: 2 Dentition: False Pulmonary: Pulmonary: COPD CV/HEM: CV/HEM: CAD (stents) and HTN GI: GI: GERD Metabolic: Metabolic: DM and Morbid obesity Musc/skel: Musc/skel: Lower Back Pain Comments: Chronic pain/opioid Anesthetic Plan: ASA status: 3 Anesthesia: General Other: A.line +/- Risk of > 500 ml blood loss (7ml/kg in children): No PFSH Anesthesia PFSH: Medical History (HFpEF) heart failure with preserved ejection fraction Anemia Anemia Atherosclerotic heart disease of [place] coronary artery with other forms of angina pectoris Atherosclerotic heart disease of [place] coronary artery with unspecified angina pectoris CAD (coronary artery disease) Candidiasis of vagina Chest pain Chest pain, midsternal Chronic congestive heart failure Chronic left-sided low back pain Chronic obstructive pulmonary disease, unspecified Chronic pain of left knee Compression fracture of L2 lumbar vertebra Congestive heart failure COPD (chronic obstructive pulmonary disease) Coronary artery disease due to type 2 diabetes mellitus Current every day smoker CVA (cerebral vascular accident) Diabetes type 2, uncontrolled Dyslipidemia Dyspnea Elevated troponin Encounter for long-term opiate analgesic use Essential hypertension Fibromyalgia Fibromyalgia, primary History of CVA (cerebrovascular accident) History of hypoglycemic coma Hyperlipidemia, mixed Insomnia Intervertebral disc disorder of lumbar region with myelopathy Leukocytosis Low back pain radiating to both legs Lumbosacral spondylosis without myelopathy Neuropathy NSTEMI (non-ST elevated myocardial infarction) Thought to be secondary to plaque rupture. Angiogram July 04 no flow- limiting lesions, or restenosis of previous stent from April 2020 Obesity (BMI 35.0-39.9 without comorbidity) Opioid contract exists Osteoarthritis of left knee Osteoarthritis of spine at multiple levels Pericardial effusion Peripheral sensory neuropathy due to type 2 diabetes mellitus Pneumonia Pressure ulcer Prosthetic joint infection Right hip pain Septic arthritis of knee, left Type 2 diabetes mellitus Type 2 diabetes mellitus with diabetic autonomic (poly)neuropathy Vitamin D deficiency Surgical History History of arthroscopic surgery of elbow BILATERAL History of coronary angiogram Angiogram April 2020 with 90% circumflex lesion, drug-eluting stent placed by Dr. Jerome S/p bilateral carpal tunnel release S/P hysterectomy S/P knee surgery RIGHT S/P lumbar fusion DR. Shreya ZAYAS IN [place], [place] L4-L5, L5-S1 Status post left knee replacement Status post lumbar laminectomy Family History Other CAD (coronary artery disease) Cancer Diabetes Social History Smoking and tobacco status: current every day smoker cigarettes Packs smoked per day: 1 [ Other cigarette details: PER PATIENT REPORT ] Second hand smoke exposure: Yes Smoking risk assessment/counseling performed?: Yes Alcohol intake: former Desire information about alcohol rehabilitation?: No Counseling given: No Desire information about substance/drug rehabilitation?: No Counseling given: No Caregiver/support person: No Lives independently: Yes Household members: family and other Details: son Housing: Manufactured/Mobile home Marital status: Unknown Marital status details: She and son state she is not service: No Current occupational status: unemployed Pets and animals: Yes History of recent travel: No Current gender identity: Female Data Anesthesia CBC & Chem 7: 04/16/21 10:10 04/16/21 10:10 Other Labs: Laboratory Results - last 48 hr 04/16/21 04/16/21 10:10 10:10 WBC 12.9 H RBC 4.56 Hgb 12.5 Hct 39.1 MCV 85.7 MCH 27.4 L MCHC 32.0 RDW 15.3 H Plt Count 493 H MPV 9.6 Neut % (Auto) 56.6 Lymph % (Auto) 28.8 [place] % (Auto) 7.2 Eos % (Auto) 4.4 Baso % (Auto) 0.9 Neut # (Auto) 7.28 Lymph # (Auto) 3.7 [place] # (Auto) 0.9 Eos # (Auto) 0.6 Baso # (Auto) 0.1 Nucleated RBC % (auto) 0 Nucleated RBCs # 0.0 Sodium 136 Potassium 4.5 Chloride 100 Carbon Dioxide 25 Anion Gap 15.5 BUN 9 Creatinine 0.6 GFR Calculation 104.6 Glucose 230 H Calculated Osmolality 288 Calcium 8.6 Cardiac Studies: No Data to Display
[2021-04-16 10:53] VITALS: BMI 35.0
[2021-04-22] VITALS (9 sets, daily range): BP systolic 111–146; BP diastolic 61–97; PULSE 86–94; RESP 13–21; TEMP 36.3–36.7; O2SAT 90–97
--- NOTE | 2021-04-22 11:34 | W.PM.OPSUD ---
Surgery/Procedure H&P Update DATE OF PROCEDURE: April 22, 2021 DATE H&P PERFORMED: 04/07/21 H&P UPDATE INFORMATION: I have reviewed H&P completed within last 30 days, I have examined patient prior to procedure and No changes to prior documentation PREOP DIAGNOSIS: Deep infection left total knee PLANNED PROCEDURE: Operation Date: 04/22/21 07:00 Proposed Procedures p PLIF L3/4 with hardware removal of spine 25919, 17872, 21298, 97238, 21702, 79674, 16586 m48.06(Not Applicable) - Mata Gomez DO
[2021-04-22 11:48] LABS: Glucose Point of Care 182 mg/dL (70-110)
[2021-04-22] MEDS: sodium chloride 0.9% 1,000 ML 30 ML IV (11:53)
[2021-04-22] MEDS: vancomycin 1,000 MG in sodium chloride 0.9% 250 ML 250 MG IV (11:53)
--- NOTE | 2021-04-22 12:35 | P.ANESUD_ITS ---
Pre-Anesthetic Update Pre-Anesthetic Assessment: Date of Surgery/Procedure: 04/22/21 Preop Cathy gnosis: Deep infection left total knee Proposed Procedure: Operation Date: 04/22/21 07:00 Proposed Procedures p PLIF L3/4 with hardware removal of spine 71575, 81731, 79464, 30949, 51188, 62953, 58582 m48.06(Not Applicable) - Mata Gomez, DO Any changes to Pre-Anesthetic Assessment?: No Last Intake: Intake Last Liquid Date 04/21/21 Last Liquid Time 20:00 Last Solid Date 04/21/21 Last Solid Time 20:00 Labs Last 48hrs: Laboratory Results - last 48 hr 04/22/21 11:45 POC Glucose 182 H Vitals: Temperature 97.9 F 04/22/21 11:30 Temperature Source Temporal Artery S can 04/22/21 11:30 Pulse Rate 94 04/22/21 11:30 Respiratory Rate 18 04/22/21 11:30 Blood Pressure 125/75 04/22/21 11:30 Blood Pressure Kasey n 91 04/22/21 11:30 Pulse Oximetry 95 04/22/21 11:30 Oxygen Delivery Me thod 04/22/21 11:30 Exam: Pre-Anes Outpt Exam: alert, oriented x 3, clear to auscultation bilaterally and regular rate & rhythm Cardiac Studies: No Data to Display
--- NOTE | 2021-04-22 13:59 | ANES.PROC ---
Anesthesia Procedures Procedure/Date: 04/22/21 Arterial Line: Time Out Performed: Yes Consent: risks and benefits reviewed and patient agrees to proceed Size (Gauge): 20 Technique Used: guide wire technique Post-Procedure: dry sterile dressing placed Patient Tolerated Procedure: well Complications: none Site: left
--- NOTE | 2021-04-22 14:01 | ANE.PACU2 ---
Inpatient post-anesthesia follow up: Airway intact: Yes Vital signs: Temperature 98.0 F Pulse Rate 87 Respiratory Rate 13 Blood Pressure 111/71 Pulse Oximetry 90 Oxygen Delivery Me thod Nasal Cannula Oxygen Flow Rate 4 Fraction of Inspir ed Oxygen Hydration adequate: Yes Nausea and vomiting: No Mental status: Baseline Additional Comments: Procedure aborted per suregon after patient had resistant hypotension (systolics of 60s) while only on 0.5 MAC volatile requiring high dose phenylephrine gtt and vasopressin
--- NOTE | 2021-04-22 14:32 | PC.NURSE ---
ART LINE IN L WRIST REMOVED. PRESSURE APPLIED FOR 10 MINS. SITE ASYMPTOMATIC. PRESSURE DRESSING APPLIED. REPORT GIVEN TO IRAM JEFF IN OPS. SITE OBSERVED WITH RECEIVING NURSE. VSS.
== END 2021-04-22 15:27 | disposition home or self-care (01) ==
PROVIDERS: Anesthesiology; PCP Nurse Practitioner Family; Visit Provider Orthopaedic Surgery
DX: M54.5 Low back pain (principal); Z53.8 Procedure and treatment not carried out for other reasons; I25.118 Atherosclerotic heart disease of native coronary artery with other forms of angina pectoris; I25.10 Atherosclerotic heart disease of native coronary artery without angina pectoris; J44.9 Chronic obstructive pulmonary disease, unspecified; F17.210 Nicotine dependence, cigarettes, uncomplicated; M79.7 Fibromyalgia; Z86.73 Personal history of transient ischemic attack (TIA), and cerebral infarction without residual deficits; E78.2 Mixed hyperlipidemia; E11.40 Type 2 diabetes mellitus with diabetic neuropathy, unspecified; Z95.5 Presence of coronary angioplasty implant and graft; E66.01 Morbid (severe) obesity due to excess calories; Z68.35 Body mass index [BMI] 35.0-35.9, adult; G89.29 Other chronic pain; Z79.891 Long term (current) use of opiate analgesic
CPT/HCPCS: 36415; 36416; 80048; 82962; 85025; 96365; J0330; J0690; J1100; J2250; J2405; J2704; J3010; J3370; J3490; J7030; J7050

== ENCOUNTER → 2021-04-28 07:52 | Outpatient (BNVA) | payer MEDICARE, MEDICAID, SELFPAY | PROVIDERS: PCP Nurse Practitioner Family; Visit Provider Anesthesiology | DX: G89.29 Other chronic pain (principal); M47.817 Spondylosis without myelopathy or radiculopathy, lumbosacral region; S32.020A Wedge compression fracture of second lumbar vertebra, initial encounter for closed fracture; X58.XXXA Exposure to other specified factors, initial encounter; M25.562 Pain in left knee; F17.210 Nicotine dependence, cigarettes, uncomplicated; Z79.891 Long term (current) use of opiate analgesic | CPT/HCPCS: 99214 ==

== ENCOUNTER → 2021-05-12 15:59 | Outpatient (BNVA) | payer MEDICARE, MEDICAID, SELFPAY | PROVIDERS: PCP Nurse Practitioner Family; Visit Provider Nurse Practitioner Family | DX: J44.1 Chronic obstructive pulmonary disease with (acute) exacerbation (principal); Z20.822 Contact with and (suspected) exposure to COVID-19 | CPT/HCPCS: 87635 ==

== ENCOUNTER 2021-05-19 22:10 | Emergency (ER) | payer MEDICARE, MEDICAID, SELFPAY ==
[2021-05-19 22:22] VITALS: BP 144/91; PULSE 95; RESP 18; TEMP 36.9; O2SAT 93; BMI 35.0
--- NOTE | 2021-05-19 22:28 | ECG_ITS ---
[facility] ED Test Date: 2021-05-19 Pat Name: Mayra Ascencio Department: Room: Gender: Female Poker Supervisor: : 1965 Requested By: Kelly Bates Order Number: [id number] Ashlee MD: Marlee Olmos M.D. Measurements Intervals [place] Rate: 90 P: 19 MD: 169 QRS: 13 QRSD: 94 T: 68 QT: 388 QTc: 475 Interpretive Statements SINUS RHYTHM NONSPECIFIC ST & T-WAVE ABNORMALITY Compared to ECG 04/16/2021 10:30:19 First degree AV block no longer present T-wave abnormality still present Electronically Signed On 05-20-2021 20:28:59 CDT by Marlee Olmos M.D. [id number]
--- NOTE | 2021-05-19 22:28 | XRR_ITS ---
PROCEDURE INFORMATION: Exam: XR Chest Exam date and time: 05/19/2021 10:28 PM Age: 55 years old Clinical indication: Chest wall pain; Additional info: Cp TECHNIQUE: Imaging protocol: XR of the chest. Views: 1 view. Total images: 1 COMPARISON: CR XR chest 1V portable [id number] 01/15/2021 2:52 PM FINDINGS: Lungs: Poor inspiratory effort. Bilateral subtle interstitial lung disease which could reflect low-grade interstitial edema and/or interstitial pneumonitis. Small calcified granuloma left lung base. Pleural spaces: Unremarkable. No pleural effusion. No pneumothorax. Heart/Mediastinum: Cardiac structures and configuration within normal limits and stable. Bones/joints: Mild scoliotic curvature of the spine. XR/XR chest 1V portable [id number] IMPRESSION: 1. Poor inspiratory effort. 2. Bilateral subtle interstitial lung disease which could reflect low-grade interstitial edema and/or interstitial pneumonitis.
--- NOTE | 2021-05-19 22:33 | W.ED.CHESTPA ---
HPI - Chest Pain General: Chief Complaint: Chest Pain Stated Complaint: cp and nausea Time Seen by Provider: 05/19/21 22:13 Source: patient and EMS Mode of arrival: EMS Limitations: no limitations History of Present Illness: HPI narrative: 55-year-old female who has a long history of cardiac issues states that she has been having chest pain since this morning. States been a pressure pain in the center of her chest radiation to her arm. She denies any worsening or improving factors. States she is also had some dyspnea but has chronic dyspnea from her COPD. Patient is 96% here on room air. She denies any fever. Denies any cough. Denies any vomiting or diarrhea. Associated symptoms: Deny abdominal pain, dyspnea, fever(s), nausea or vomiting Review of Systems Const: Denies: fever(s), chills, body aches or change in appetite Eyes: Denies: blurry vision or eye discomfort ENMT: Denies: throat pain or dental pain Card: Reports: chest pain Resp: Denies: dyspnea GI: Denies: abdominal pain, nausea, vomiting or diarrhea : Denies: dysuria Musc: Denies: neck pain or back pain Skin/Breast: Denies: rash Neuro: Denies: headache(s) Psych: Denies: depression Xavier/Lymph: Denies: easy bruising All/Imm: Denies: urticaria PFSH ED PFSH: Medical History (HFpEF) heart failure with preserved ejection fraction Anemia Anemia Atherosclerotic heart disease of [place] coronary artery with other forms of angina pectoris Atherosclerotic heart disease of [place] coronary artery with unspecified angina pectoris CAD (coronary artery disease) Candidiasis of vagina Chest pain Chest pain, midsternal Chronic congestive heart failure Chronic left-sided low back pain Chronic obstructive pulmonary disease, unspecified Chronic pain of left knee Compression fracture of L2 lumbar vertebra Congestive heart failure COPD (chronic obstructive pulmonary disease) Coronary artery disease due to type 2 diabetes mellitus Current every day smoker CVA (cerebral vascular accident) Diabetes type 2, uncontrolled Dyslipidemia Dyspnea Elevated troponin Encounter for long-term opiate analgesic use Essential hypertension Fibromyalgia Fibromyalgia, primary History of CVA (cerebrovascular accident) History of hypoglycemic coma Hyperlipidemia, mixed Insomnia Intervertebral disc disorder of lumbar region with myelopathy Leukocytosis Low back pain radiating to both legs Lumbosacral spondylosis without myelopathy Neuropathy NSTEMI (non-ST elevated myocardial infarction) Thought to be secondary to plaque rupture. Angiogram July 04 no flow-limiting lesions, or restenosis of previous stent from April 2020 Obesity (BMI 35.0-39.9 without comorbidity) Opioid contract exists Osteoarthritis of left knee Osteoarthritis of spine at multiple levels Pericardial effusion Peripheral sensory neuropathy due to type 2 diabetes mellitus Pneumonia Pressure ulcer Prosthetic joint infection Right hip pain Septic arthritis of knee, left Type 2 diabetes mellitus Type 2 diabetes mellitus with diabetic autonomic (poly)neuropathy Vitamin D deficiency Surgical History History of arthroscopic surgery of elbow BILATERAL History of coronary angiogram Angiogram April 2020 with 90% circumflex lesion, drug-eluting stent placed by Dr. Jerome S/alis bilateral carpal tunnel release S/P hysterectomy S/P knee surgery RIGHT S/P lumbar fusion DR. Shreya ZAYAS IN [place], [place] L4-L5, L5-S1 Status post left knee replacement Status post lumbar laminectomy Family History Other CAD (coronary artery disease) Cancer Diabetes Social History Second hand smoke exposure: Yes Smoking risk assessment/counseling performed?: Yes Alcohol intake: former Desire information about alcohol rehabilitation?: No Counseling given: No Desire information about substance/drug rehabilitation?: No Counseling given: No Caregiver/support person: No Lives independently: Yes Household members: family and other Details: son Housing: Manufactured/Mobile home Marital status: Unknown Marital status details: She and son state she is not service: No Current occupational status: unemployed Pets and animals: Yes History of recent travel: No Current gender identity: Female Physical Exam Const: COMMON NORMALS: no acute distress, patient oriented x3 and healthy appearing HENMT: COMMON NORMALS: normocephalic and atraumatic HEAD & SCALP: normocephalic and atraumatic Eye: COMMON NORMALS: Equal, round and reactive pupils present and EOMs intact bilaterally PUPIL: Yes Equal, round and reactive pupils present Neck/C-Spine: COMMON NORMALS: full ROM and supple Chest: COMMONS NORMALS: normal inspection of the chest and normal palpation of entire chest wall Resp: COMMON NORMALS: normal respiratory effort, No retractions, No use of accessory muscles and clear to auscultation bilaterally AUSCULTATION: clear to auscultation bilaterally Cardio: COMMON NORMALS: regular rate, regular rhythm and No murmurs present (Cardio) RATE: regular rate RHYTHM: regular rhythm GI: COMMON NORMALS: Normal to inspection, nondistended, normoactive bowel sounds present, Soft to palpation, non-tender and no masses PALPATION: Yes Soft to palpation Extremity: COMMON NORMALS: normal to inspection and full ROM Neuro: COMMON NORMALS: patient oriented x3, moves all extremities and no focal motor deficits Psych: COMMON NORMALS: mental status grossly normal, Normal thought process present and cooperative THOUGHT PROCESS: Normal thought process present Skin: COMMON NORMALS: no rashes or lesions noted and no wounds GENERAL SKIN EXAM: no rashes or lesions noted Course Vital Signs: Vital signs: Vital Signs Temperature 98.4 F 05/20/21 03:32 Pulse Rate 85 05/20/21 03:32 Respiratory Rate 17 05/20/21 03:32 Blood Pressure 100/50 05/20/21 03:32 Pulse Oximetry 95 05/20/21 03:32 MDM - Chest Pain MDM Narrative: Medical decision making narrative: Patient presents with chest pains atypical. Her pain is much improved and she is requesting discharge. 2-hour troponin showed no change and she has no signs of acute coronary syndrome. She has no signs of pulmonary embolism. Does have an elevated white count she states she is on steroids currently and could be the cause. She is follow-up with PCP in 5 to 7 days for recheck. She is return to ER for pain comes back. She understands and agrees to this plan. Lab Data: Labs: Lab Results 05/19/21 05/19/21 05/19/21 Range/Units 22:57 23:30 23:30 WBC 25.5 H (4.0-10.0) 10^3/ uL RBC 4.23 (4.1-5.3) 10^6/u L Hgb 11.5 (11.5-15.3) g/dL Hct 36.0 L (37.0-47.0) % MCV 85.1 (81-99) fL MCH 27.2 L (28.0-34.0) pg MCHC 31.9 (30.0-36.0) g/dL RDW 15.4 H (12.1-15.1) % Plt Count 622 H (130-400) 10^3/c mm MPV 9.8 (7.4-10.4) fL Neut % (Auto) 71.1 % Lymph % (Auto) 18.1 % [place] % (Auto) 7.1 % Eos % (Auto) 0.2 % Baso % (Auto) 0.4 % Neut # (Auto) 18.12 H (1.8-7.7) 10^3/u L Lymph # (Auto) 4.6 (0.8-4.8) 10^3/u L [place] # (Auto) 1.8 H (0.2-0.9) 10^3/u L Eos # (Auto) 0.1 (0.0-0.8) 10^3/u L Baso # (Auto) 0.1 (0.0-0.1) 10^3/u L Nucleated RBC % (a uto) 0 % Nucleated RBCs # 0.0 /100WBC Sodium 133 L (136-145) mmol/L Potassium 4.0 (3.5-5.1) mmol/L Chloride 94 L (98-107) mmol/L Carbon Dioxide 27 (22-29) mmol/L Anion Gap 16.0 (5-19) BUN 21 H (6-20) mg/dL Creatinine 0.9 (0.5-0.9) mg/dL GFR Calculation 65.5 L (90-130) mL/min Glucose 294 H (65-115) mg/dL Calculated Osmolal ity 290 (285-295) mOsm/k g Calcium 8.6 (8.5-10.5) mg/dL Total Bilirubin 0.2 (0.15-1.2) mg/dL AST 12 (0-32) U/L ALT 12 (0-33) U/L Alkaline Phosphata se 88 (35-105) IU/L Troponin T Baselin e (0-10) ng/L Troponin T 120 Min [place] (0-10) ng/L Delta Troponin T (0-10) ABS# Total Protein 6.5 L (6.6-8.7) g/dL Albumin 4.0 (3.5-5.2) g/dL Globulin 2.5 (1.3-4.6) g/dL SARS-CoV-2 Ag (Rap id) Negative (Negative) 05/19/21 05/20/21 Range/Units 23:30 01:11 WBC (4.0-10.0) 10^3/ uL RBC (4.1-5.3) 10^6/u L Hgb (11.5-15.3) g/dL Hct (37.0-47.0) % MCV (81-99) fL MCH (28.0-34.0) pg MCHC (30.0-36.0) g/dL RDW (12.1-15.1) % Plt Count (130-400) 10^3/c mm MPV (7.4-10.4) fL Neut % (Auto) % Lymph % (Auto) % [place] % (Auto) % Eos % (Auto) % Baso % (Auto) % Neut # (Auto) (1.8-7.7) 10^3/u L Lymph # (Auto) (0.8-4.8) 10^3/u L [place] # (Auto) (0.2-0.9) 10^3/u L Eos # (Auto) (0.0-0.8) 10^3/u L Baso # (Auto) (0.0-0.1) 10^3/u L Nucleated RBC % (a uto) % Nucleated RBCs # /100WBC Sodium (136-145) mmol/L Potassium (3.5-5.1) mmol/L Chloride (98-107) mmol/L Carbon Dioxide (22-29) mmol/L Anion Gap (5-19) BUN (6-20) mg/dL Creatinine (0.5-0.9) mg/dL GFR Calculation (90-130) mL/min Glucose (65-115) mg/dL Calculated Osmolal ity (285-295) mOsm/k g Calcium (8.5-10.5) mg/dL Total Bilirubin (0.15-1.2) mg/dL AST (0-32) U/L ALT (0-33) U/L Alkaline Phosphata se (35-105) IU/L Troponin T Baselin e 46 H (0-10) ng/L Troponin T 120 Min [place] 48.97 H (0-10) ng/L Delta Troponin T 2.97 (0-10) ABS# Total Protein (6.6-8.7) g/dL Albumin (3.5-5.2) g/dL Globulin (1.3-4.6) g/dL SARS-CoV-2 Ag (Rap id) (Negative) Imaging Data^: CXR: Attestation: I personally reviewed and interpreted this imaging study as follows: Radiologist's impression: [address] [facility] [address] XRay Report Signed Patient: Mayra Ascencio Unit #: [id number] : 1965 Age/Sex: 55 / F ADM Date: 05/19/21 Loc: ER Room/Bed: Attending Dr: Ordering Provider/Ordering MD: Kelly Bates MD Date of Service: 05/19/21 Procedure(s): XR chest 1V portable [id number] Accession Number(s): [id number] Report Number: [id number] PROCEDURE INFORMATION: Exam: XR Chest Exam date and time: 05/19/2021 10:28 PM Age: 55 years old Clinical indication: Chest wall pain; Additional info: Cp TECHNIQUE: Imaging protocol: XR of the chest. Views: 1 view. Total images: 1 COMPARISON: CR XR chest 1V portable [id number] 01/15/2021 2:52 PM FINDINGS: Lungs: Poor inspiratory effort. Bilateral subtle interstitial lung disease which could reflect low-grade interstitial edema and/or interstitial pneumonitis. Small calcified granuloma left lung base. Pleural spaces: Unremarkable. No pleural effusion. No pneumothorax. Heart/Mediastinum: Cardiac structures and configuration within normal limits and stable. Bones/joints: Mild scoliotic curvature of the spine. XR/XR chest 1V portable [id number] IMPRESSION: 1. Poor inspiratory effort. 2. Bilateral subtle interstitial lung disease which could reflect low-grade interstitial edema and/or interstitial pneumonitis. Dictated By: Adrian Vizcaino Signed By: Adrian Vizcaino Signed Date/Time: 05/19/212330 DD/ 29 EKG Data^: EKG 1: Attestation: I personally reviewed and interpreted this EKG as follows: EKG interpretation date: 05/19/21 EKG interpretation time: 23:06 Interpretation: nsr hr [address] or t wave abnormalities qrs 94 qtc 435 EKG 2: Attestation: I personally reviewed and interpreted this EKG as follows: EKG interpretation date: 05/20/21 EKG interpretation time: 01:29 Interpretation: nsr hr [address] or t wave abnormalities qrs 94 qtc 435 Discharge Plan Discharge Patient Disposition: Home Clinical Impression: Chest pain Qualifiers: Chest pain type: unspecified Qualified Code(s): R07.9 - Chest pain, unspecified Leukocytosis Qualifiers: Leukocytosis type: unspecified Qualified Code(s): D72.829 - Elevated white blood cell count, unspecified Condition: Stable Prescriptions: No Action sulfamethoxazole-trimethoprim [Bactrim] 400-80 mg tablet 1 tab PO DAILY Qty: 30 RF: 2 doxycycline hyclate 100 mg capsule 100 mg PO BID 10 Days Qty: 20 RF: 0 prednisone 20 mg tablet 40 mg PO DAILY 5 Days Qty: 10 RF: 0 topiramate 50 mg tablet 50 mg PO BID@08,21 RF: 0 pantoprazole [Protonix] 40 mg tablet,delayed release (DR/EC) 40 mg PO DAILY@08 RF: 0 lidocaine 5 % adhesive patch,medicated 1 patch topical DAILY Qty: 30 RF: 2 albuterol sulfate [Ventolin HFA] 90 mcg/actuation HFA aerosol inhaler 2 puff INHALATION QID PRN (Reason: shortness of breath or wheezing) 30 Days Qty: 6.7 RF: 2 budesonide-formoterol [Symbicort] 160-4.5 mcg/actuation HFA aerosol inhaler 2 puff INHALATION Q12H Qty: 10.2 RF: 2 quetiapine 100 mg tablet 100 mg PO .qhs Qty: 30 RF: 2 metformin 500 mg tablet extended release 24 hr 1,000 mg PO BID Qty: 120 RF: 2 cetirizine [Zyrtec] 10 mg tablet 10 mg PO DAILY PRN (Reason: allergy symptoms) Qty: 30 RF: 1 fluticasone propionate [Flonase Allergy Relief] 50 mcg/actuation spray,suspension 2 spray intranasal DAILY Qty: 16 RF: 2 tramadol [Ultram] 50 mg tablet 50 mg PO .5 times a day PRN (Reason: pain) 30 Days Qty: 150 RF: 0 pregabalin [Lyrica] 150 mg capsule 150 mg PO BID@0800,1800 30 Days Qty: 60 RF: 0 cyclobenzaprine 10 mg tablet 10 mg PO TID PRN (Reason: muscle spasm) 30 Days Qty: 90 RF: 0 duloxetine 60 mg capsule, delayed rel sprinkle 60 mg PO DAILY@08 30 Days Qty: 30 RF: 0 hydromorphone 4 mg tablet 4 mg PO TID PRN (Reason: pain) 30 Days Qty: 90 RF: 0 nitroglycerin 0.4 mg tablet, sublingual See Rx Instructions .ROUTE .COMPLEX Qty: 25 RF: 3 furosemide [Lasix] 40 mg tablet 40 mg PO BID@0800,2100 PRN (Reason: Edema) Qty: 60 RF: 12 atorvastatin 80 mg tablet 80 mg PO DAILY Qty: 30 RF: 2 Levemir FlexTouch U-100 Insuln 100 unit/mL (3 mL) insulin pen 30 unit SUBCUT DAILY@08 Qty: 15 RF: 2 midodrine 5 mg tablet 5 mg PO BID@0800,2100 Qty: 60 RF: 5 losartan 50 mg tablet 50 mg PO DAILY@0800 Qty: 30 RF: 0 ranolazine 500 mg tablet extended release 12 hr 1,000 mg PO BID@, RF: 0 Brilinta 90 mg tablet 90 mg PO BID@ RF: 0 aspirin 81 mg Tablet,Chewable 81 mg PO DAILY@08 RF: 0 acetaminophen 325 mg Tablet 650 mg PO Q6H PRN (Reason: Mild/Mod Pain Or Temp >/= 101) Qty: 30 RF: 0 potassium chloride 20 mEq Tablet Extended Release 20 meq PO DAILY@08 RF: 0 isosorbide mononitrate 60 mg tablet extended release 24 hr 60 mg PO BID@,21 RF: 0 ergocalciferol (vitamin D2) 1,250 mcg (50,000 unit) capsule 1,250 mcg PO Q7D RF: 0 diclofenac sodium 1 % Gel See Rx Instructions .ROUTE .COMPLEX RF: 0 folic acid 1 mg tablet 1 mg PO DAILY@0800 RF: 0 ferrous sulfate 325 mg (65 mg iron) tablet,delayed release (DR/EC) 325 mg PO BID@0800,2100 RF: 0 Discharge Orders: Discharge ED (Routine); Ordered 05/20/21 Ordered By: Kelly Bates Referrals: Naomy Goodwin FNP [Primary Care Provider] - 1-3 days Discharge Diet: Advance as tolerated Discharge Activity: Resume usual activity Patient Instructions: Chest Pain (ED), Leukocytosis (ED) Activity Restrictions/Additional Instructions: have cbc rechecked in 4-7 days for leukocytosis. Coding Level of Care Code ED Photographic Process Attendant for Chg Fwd Exam Comprehensive
[2021-05-19 22:51] VITALS: BP 136/69; PULSE 92; RESP 20; O2SAT 96
--- NOTE | 2021-05-19 23:11 | PM.HP ---
Providers/Chief Complaint Primary Care Provider: KATHY Stewart Chief Complaint: cp and nausea History of Present Illness Mayra Ascencio is a 55 year old female who has multiple comorbid conditions presented today with chief complaint of chest pain. Patient is stating that her symptoms started on 10:30 AM when she was sitting on her couch. She describes her symptoms as sharp chest pain which was substernal, radiating towards her arms bilaterally, associated with nausea, diaphoresis and shortness of breath. No recent fever or productive cough. She is not vaccinated for Covid. She smokes 4 to 5 cigarettes a day. She describing her symptoms as sharp pain which was not getting relieved with taking sublingual nitroglycerin, her second dose of sublingual nitro was given by EMS in the ambulance. She is still experiencing sharp left-sided chest pain in the ER. She is endorsing orthopnea, PND weight gain lower extremity edema. Of note, she was recently admitted for management of rhabdomyolysis that she developed after a fall, she was asked to follow-up with Dr. Gomez for her osteoarthritis, rhabdomyolysis improved with fluid hydration. Review of Systems Const: Reports: body aches, fatigue and malaise; Denies: fever(s) or chills Eyes: Denies: change in vision ENMT: Denies: throat pain Card: Reports: chest pain, swelling of feet/ankles, dyspnea on exertion and orthopnea Resp: Reports: dyspnea and non-productive cough GI: Reports: nausea; Denies: abdominal pain or vomiting : Denies: flank pain Musc: Denies: neck pain Skin/Breast: Denies: rash Neuro: Denies: headache(s) Psych: Reports: anxiety Endo: Denies: polyuria Xavier/Lymph: Denies: easy bruising All/Imm: Denies: urticaria Medications/Allergies Home Medications Medication Instructions Recorded Confirmed Last Taken Type pantoprazole 40 mg tablet,delayed 40 mg PO DAILY@11/05/19 05/12/21 04/21/21 History release topiramate 50 mg tablet 50 mg PO BID@11/05/19 05/12/21 04/21/21 History Brilinta 90 mg PO BID@09/29/20 05/12/21 04/21/21 History aspirin 81 mg PO DAILY@09/29/20 05/12/21 04/18/21 History ranolazine 1,000 mg PO BID@08,09/29/20 05/12/21 04/21/21 History acetaminophen 650 mg PO Q6H PRN #30 tab 10/16/20 05/12/21 04/21/21 Rx nitroglycerin 0.4 mg sublingual See Rx Instructions .ROUTE 11/06/20 05/12/21 10/29/20 Rx tablet .COMPLEX #25 tab potassium chloride 20 meq PO DAILY@08 12/29/20 05/12/21 04/21/21 History lidocaine 5 % topical patch 1 patch TOPICAL DAILY #30 ea 01/07/21 05/12/21 04/15/21 Rx ergocalciferol (vitamin D2) 1,250 mcg PO Q7D 01/15/21 05/12/21 04/20/21 History isosorbide mononitrate 60 mg PO BID@08,01/15/21 05/12/21 04/22/21 History diclofenac sodium See Rx Instructions .ROUTE .COMPLEX 01/24/21 05/12/21 04/21/21 History ferrous sulfate 325 mg PO BID@0800,2100 01/24/21 05/12/21 04/21/21 History folic acid 1 mg PO DAILY@0800 01/24/21 05/12/21 04/21/21 History furosemide 40 mg tablet 40 mg PO BID@0800,2100 PRN #60 tab 03/04/21 05/12/21 04/21/21 Rx albuterol sulfate 90 mcg/actuation 2 puff INHALATION QID PRN 30 Days 03/06/21 05/12/21 04/21/21 Rx aerosol inhaler #6.7 gm budesonide-formoterol HFA 160 2 puff INHALATION Q12H #10.2 gm 03/06/21 05/12/21 04/21/21 Rx mcg-4.5 mcg/actuation aerosol inhaler cetirizine 10 mg tablet 10 mg PO DAILY PRN #30 tab 03/06/21 05/12/21 04/21/21 Rx fluticasone propionate 50 2 spray INTRANASAL DAILY #16 g 03/06/21 05/12/21 04/21/21 Rx mcg/actuation nasal spray,suspension metformin 500 mg tablet,extended 1,000 mg PO BID #120 tab 03/06/21 05/12/21 04/21/21 Rx release 24 hr quetiapine 100 mg tablet 100 mg PO .qhs #30 tab 03/06/21 05/12/21 04/21/21 Rx sulfamethoxazole 400 1 tab PO DAILY #30 tab 03/10/21 05/12/21 04/21/21 Rx mg-trimethoprim 80 mg tablet atorvastatin 80 mg tablet 80 mg PO DAILY #30 tab 03/13/21 05/12/21 04/21/21 Rx losartan 50 mg PO DAILY@0800 #30 tab 03/18/21 05/12/21 04/21/21 Rx insulin detemir U-100 100 unit/mL 30 unit SUBCUT DAILY@08 #15 ml 03/19/21 05/12/21 04/21/21 Rx (3 mL) subcutaneous pen midodrine 5 mg tablet 5 mg PO BID@0800,2100 #60 tab 04/16/21 05/12/21 04/21/21 Rx cyclobenzaprine 10 mg tablet 10 mg PO TID PRN 30 Days #90 tab 04/28/21 05/12/21 Unknown Rx duloxetine 60 mg capsule,delayed 60 mg PO DAILY@08 30 Days #30 cap 04/28/21 05/12/21 Unknown Rx release sprinkle hydromorphone 4 mg tablet 4 mg PO TID PRN 30 Days #90 tab 04/28/21 05/12/21 Unknown Rx pregabalin 150 mg capsule 150 mg PO BID@0800,1800 30 Days 04/28/21 05/12/21 Unknown Rx #60 cap tramadol 50 mg tablet 50 mg PO .5 times a day PRN 30 04/28/21 05/12/21 Unknown Rx Days #150 tab doxycycline hyclate 100 mg capsule 100 mg PO BID 10 Days #20 cap 05/12/21 05/12/21 Unknown Rx prednisone 20 mg tablet 40 mg PO DAILY 5 Days #10 tab 05/12/21 05/12/21 Unknown Rx Allergies Allergy/AdvReac Type Severity Reaction Status Date / Time adhesive Allergy Unknown Verified 05/19/21 22:28 clindamycin Allergy ADR-Itching Verified 05/19/21 22:28 codeine Allergy Unknown Verified 05/19/21 22:28 hydrocodone Allergy Unknown Verified 05/19/21 22:28 latex Allergy ALGY-Swell Verified 05/19/21 22:28 Lip/Tongue/Throat naproxen [From Naprosyn] Allergy Unknown Verified 05/19/21 22:28 nut - unspecified Allergy ALGY-Anaphy Verified 05/19/21 22:28 laxis oxycodone [From Roxicodone] Allergy ADR-Muscle Verified 05/19/21 22:28 Pain Penicillins Allergy Unknown Verified 05/19/21 22:28 sulfamethoxazole Allergy ADR-Migrain Verified 05/19/21 22:28 [From Bactrim] e trimethoprim [From Bactrim] Allergy ADR-Migrain Verified 05/19/21 22:28 e PFSH Acute PFSH: Medical History (HFpEF) heart failure with preserved ejection fraction Anemia Anemia Atherosclerotic heart disease of [place] coronary artery with other forms of angina pectoris Atherosclerotic heart disease of [place] coronary artery with unspecified angina pectoris CAD (coronary artery disease) Candidiasis of vagina Chest pain Chest pain, midsternal Chronic congestive heart failure Chronic left-sided low back pain Chronic obstructive pulmonary disease, unspecified Chronic pain of left knee Compression fracture of L2 lumbar vertebra Congestive heart failure COPD (chronic obstructive pulmonary disease) Coronary artery disease due to type 2 diabetes mellitus Current every day smoker CVA (cerebral vascular accident) Diabetes type 2, uncontrolled Dyslipidemia Dyspnea Elevated troponin Encounter for long-term opiate analgesic use Essential hypertension Fibromyalgia Fibromyalgia, primary History of CVA (cerebrovascular accident) History of hypoglycemic coma Hyperlipidemia, mixed Insomnia Intervertebral disc disorder of lumbar region with myelopathy Leukocytosis Low back pain radiating to both legs Lumbosacral spondylosis without myelopathy Neuropathy NSTEMI (non-ST elevated myocardial infarction) Thought to be secondary to plaque rupture. Angiogram July 04 no flow-limiting lesions, or restenosis of previous stent from April 2020 Obesity (BMI 35.0-39.9 without comorbidity) Opioid contract exists Osteoarthritis of left knee Osteoarthritis of spine at multiple levels Pericardial effusion Peripheral sensory neuropathy due to type 2 diabetes mellitus Pneumonia Pressure ulcer Prosthetic joint infection Right hip pain Septic arthritis of knee, left Type 2 diabetes mellitus Type 2 diabetes mellitus with diabetic autonomic (poly)neuropathy Vitamin D deficiency Surgical History History of arthroscopic surgery of elbow BILATERAL History of coronary angiogram Angiogram April 2020 with 90% circumflex lesion, drug-eluting stent placed by Dr. Jerome S/p bilateral carpal tunnel release S/P hysterectomy S/P knee surgery RIGHT S/P lumbar fusion DR. Shreya ZAYAS IN [place], [place] L4-L5, L5-S1 Status post left knee replacement Status post lumbar laminectomy Family History Other CAD (coronary artery disease) Cancer Diabetes Social History Second hand smoke exposure: Yes Smoking risk assessment/counseling performed?: Yes Alcohol intake: former Desire information about alcohol rehabilitation?: No Counseling given: No Desire information about substance/drug rehabilitation?: No Counseling given: No Caregiver/support person: No Lives independently: Yes Household members: family and other Details: son Housing: Manufactured/Mobile home Marital status: Unknown Marital status details: She and son state she is not service: No Current occupational status: unemployed Pets and animals: Yes History of recent travel: No Current gender identity: Female Vitals/I&O/Wt Last Vital Signs Temp 98.4 F 05/19/21 22:22 Pulse 92 05/19/21 22:51 Resp 20 H 05/19/21 22:51 BP 136/69 05/19/21 22:51 Pulse Ox 96 05/19/21 22:51 Weight last 48 hrs Weight 98.43 kg Physical Exam Narrative: EXAM NARRATIVE: Morbid obese female who appears stated age With active signs of congestive heart failure with bilateral lower extremity edema She was saturating well on room air Was complaining of left-sided chest discomfort which is reproducible S1, S2 sinus rhythm Bilateral breath sounds with expiratory wheezing noticed at the bases of the lung Abdomen distended no active signs of peritonitis Lower extremity edema noted EOMI, PERRLA GCS 15 Appears anxious No active signs of cellulitis A&P Assessment and plan (1) Unstable angina: Status: Acute (2) Acute exacerbation of CHF (congestive heart failure): Status: Acute Additional A&P Information Unstable angina Established history of coronary disease recent stent placed in April Recent echo revealed preserved ejection fraction 70% EF, negative Lexiscan stress test CTA chest in December did not reveal PE, evidence of pericardial effusion Overnight monitoring with serial troponin and EKGs Acute with ejection heart failure exacerbation Active signs of CHF exacerbation with bilateral extremity edema Chest x-ray consistent with mild vascular Keep her on aggressive diuretic regimen Will need extensive counseling for smoking cessation She has not been vaccinated for COVID-19 Oxygen dependent COPD uses 2 L of oxygen at baseline, Peripheral neuropathy: Continue Lyrica Cardiac diet DVT prophylaxis Lovenox Full code Attestations Medical Necessity Statement*: Anticipating discharge within 48 hours overnight monitoring needed because of unstable angina presentation, service history of coronary disease and recent stent Time Spent in Patient Care: 16 - 35 minutes Coding Level of Care Code Acute Rabbit Dresser for Nahed Alcazar Diagnoses Unstable angina I20.0 Acute exacerbation of CHF (congestive heart failure) I50.9
[2021-05-19 23:24] LABS: SARS Covid-2 Antigen Negative (Negative)
[2021-05-19 23:30] VITALS: BP 151/74; PULSE 87; O2SAT 92
[2021-05-19 23:41] LABS: Basophils # 0.1 10^3/uL (0.0-0.1); Basophils % 0.4 %; Eosinophils # 0.1 10^3/uL (0.0-0.8); Eosinophils % 0.2 %; Hemoglobin 11.5 g/dL (11.5-15.3); Lymphocytes # 4.6 10^3/uL (0.8-4.8); Lymphocytes % 18.1 %; Mean Corpuscular HGB Conc 31.9 g/dL (30.0-36.0); Mean Corpuscular Hemoglobin 27.2 pg (28.0-34.0); Mean Corpuscular Volume 85.1 fL (81-99); Mean Platelet Volume 9.8 fL (7.4-10.4); Monocytes # 1.8 10^3/uL (0.2-0.9); Monocytes % 7.1 %; Neutrophils # 18.12 10^3/uL (1.8-7.7); Neutrophils % 71.1 %; Nucleated Red Blood Cells % 0 %; Platelet Count 622 10^3/cmm (130-400); Red Blood Count 4.23 10^6/uL (4.1-5.3); Red Cell Distribution Width 15.4 % (12.1-15.1); White Blood Count 25.5 10^3/uL (4.0-10.0)
[2021-05-20 00:07] VITALS: BP 128/83; PULSE 87; RESP 18; O2SAT 93
[2021-05-20 00:08] LABS: Troponin(5th) Baseline 46 ng/L (0-10)
[2021-05-20 00:09] LABS: Alanine Aminotransferase 12 U/L (0-33); Alkaline Phosphatase 88 IU/L (35-105); Aspartate Amino Transferase 12 U/L (0-32); Blood Urea Nitrogen 21 mg/dL (6-20); Calcium 8.6 mg/dL (8.5-10.5); Carbon Dioxide 27 mmol/L (22-29); Chloride 94 mmol/L (98-107); Creatinine Clr Calc Pharmacy 85.5355; Globulin 2.5 g/dL (1.3-4.6); Glomerular Filtration Rate 65.5 mL/min (90-130); Glucose 294 mg/dL (65-115); Osmolality Calculated 290 mOsm/kg (285-295); Sodium 133 mmol/L (136-145); Total Bilirubin 0.2 mg/dL (0.15-1.2); Total Protein 6.5 g/dL (6.6-8.7)
[2021-05-20 00:17] LABS: Slide Review Slide Review Perform
--- NOTE | 2021-05-20 00:20 | CTR_ITS ---
PROCEDURE INFORMATION: Exam: CTA Chest With Contrast Exam date and time: 05/20/2021 12:20 AM Age: 55 years old Clinical indication: Shortness of breath; Patient HX: Sob/hypoxia TECHNIQUE: Imaging protocol: Computed tomographic angiography of the chest with contrast. 3D rendering (Not supervised by radiologist): MIP and/or 3D reconstructed images were created by the technologist. Radiation optimization: All CT scans at this facility use at least one of these dose optimization techniques: automated exposure control; mA and/or kV adjustment per patient size (includes targeted exams where dose is matched to clinical indication); or iterative reconstruction. Contrast material: OMNI 350; Contrast volume: 63 ml; Contrast route: INTRAVENOUS (IV); COMPARISON: CT angio chest PE protcl [id number] 12/28/2020 9:48 PM RADIATION DOSE METRICS: Total DLP (mGy-cm): 594.22 FINDINGS: Pulmonary arteries: Normal. No pulmonary emboli. Aorta: Unremarkable. No aortic aneurysm. No aortic dissection. Great vessels off aortic arch: Calcification of the thoracic aorta and/or great vessels consistent with atherosclerotic vessel disease. Lungs: Unremarkable. No consolidation. No masses. Pleural spaces: Unremarkable. No pneumothorax. No pleural effusion. Heart: Severe calcified coronary artery disease. Lymph nodes: Calcified left hilar nodes and/or mediastinal nodes and/or lung granulomas consistent with old granulomatous disease. Liver: Severe fatty infiltration of the liver. Spleen: Calcified splenic granulomas. Bones/joints: Mild thoracic spondylosis. Soft tissues: Unremarkable. Other findings: Examination is limited secondary to motion artifact. CT/CT angio chest PE protcl [id number] IMPRESSION: 1. Severe fatty infiltration of the liver. 2. Severe calcified coronary artery disease. 3. No pulmonary embolus or aortic dissection. Radiation Dose CTDIVOL = (mGy): DLP = 594.22 (mGy-cm)
--- NOTE | 2021-05-20 00:28 | ECG_ITS ---
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 Measurements Intervals [place] Rate: 84 P: 49 TX: 215 QRS: 42 QRSD: 94 T: 67 QT: 395 QTc: 467 Interpretive Statements SINUS RHYTHM WITH FIRST DEGREE AV BLOCK LOW QRS VOLTAGE IN PRECORDIAL LEADS [QRS DEFLECTION < 1.0 mV IN CHEST LEADS] NONSPECIFIC ST & T-WAVE ABNORMALITY Compared to ECG 05/19/2021 23:06:48 First degree AV block now present Low QRS voltage now present T-wave abnormality still present Electronically Signed On 05-21-2021 12:39:25 CDT by Marlee Olmos M.D. [email or web address] [employer] [id number]
[2021-05-20] MEDS: iohexol 350 mg/mL 100 mL Btl IV (00:46)
[2021-05-20 01:44] LABS: Troponin 5 2HR 48.97 ng/L (0-10); Troponin 5 2HR Delta 2.97 ABS# (0-10)
[2021-05-20 02:00] VITALS: BP 96/79; PULSE 88; O2SAT 92
[2021-05-20 02:35] VITALS: BP 94/66; PULSE 89; RESP 17; O2SAT 95
[2021-05-20 03:32] VITALS: BP 100/50; PULSE 85; RESP 17; TEMP 36.9; O2SAT 95
== END 2021-05-20 03:38 | disposition home or self-care (01) ==
PROVIDERS: Emergency Provider Emergency Medicine; PCP Nurse Practitioner Family
DX: R07.9 Chest pain, unspecified (principal); D72.829 Elevated white blood cell count, unspecified; Z79.4 Long term (current) use of insulin; Z79.82 Long term (current) use of aspirin; I25.10 Atherosclerotic heart disease of native coronary artery without angina pectoris; I11.0 Hypertensive heart disease with heart failure; I50.9 Heart failure, unspecified; J44.9 Chronic obstructive pulmonary disease, unspecified; Z86.73 Personal history of transient ischemic attack (TIA), and cerebral infarction without residual deficits; E11.40 Type 2 diabetes mellitus with diabetic neuropathy, unspecified; E78.2 Mixed hyperlipidemia; I25.2 Old myocardial infarction; Z77.22 Contact with and (suspected) exposure to environmental tobacco smoke (acute) (chronic); Z20.822 Contact with and (suspected) exposure to COVID-19
CPT/HCPCS: 36415; 71045; 71275; 80053; 84484; 85025; 87426; 93005; 99284; Q9967

== ENCOUNTER → 2021-05-28 10:41 | Outpatient (BNVA) | payer MEDICARE, MEDICAID, SELFPAY | PROVIDERS: PCP Nurse Practitioner Family; Visit Provider Anesthesiology | DX: M47.817 Spondylosis without myelopathy or radiculopathy, lumbosacral region (principal); M25.562 Pain in left knee; Z79.891 Long term (current) use of opiate analgesic | CPT/HCPCS: 99214 ==

== ENCOUNTER 2021-06-12 08:34 | Outpatient (CLI) | payer MEDICARE, MEDICAID, SELFPAY ==
[2021-06-12 09:00] VITALS: BMI 38.2
--- NOTE | 2021-06-12 09:24 | ECG_ITS ---
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 Interpretive Statements NAME OF STUDY: LEXISCAN SESTAMIBI STRESS TEST INDICATION: Shortness of Breath, PROCEDURE: At the baseline, the EKG revealed normal sinus rhythm with some nonspecific T wave changes. Because of the baseline artifact, difficult to interpret the ST-T changes. The baseline blood pressure was 148/83 mm Hg with a heart rate of 87 beats/min. Lexiscan was infused over a period of 20 seconds. A total of 0.4 milligrams of Lexiscan was infused. The stress phase was continued for a total of 5 minutes. Heart rate at the end of the stress phase was 91 with a blood pressure 159/85. The EKG at the peak infusion revealed no significant changes. Sestamibi was injected 20 seconds after the Lexiscan infusion. Blood pressure at the end of the recovery phase was 153/86 with a heart rate of 93 per minute. CONCLUSION: 1. No significant EKG changes with the LexiScan infusion 2. No LexiScan induced chest pain or cardiac arrhythmia 3. Normal blood pressure and heart rate response 4. Sestamibi/sestamibi perfusion scan pending; see separate report. Electronically Signed On 06-17-2021 13:49:36 CDT by Troy Joyce M.D. [id number]
--- NOTE | 2021-06-12 09:25 | NMCV_ITS ---
NM jb perf SPECT r/s* [id number] Mayra Ascencio Age: 56 Gender: F : 1965 Exam Date: 06/12/2021 10:03 Ordering Phys: Aurea Walters Technologist: SUMA Stokes Exam Location: [facility] [address] Indications: UNSTABLE ANGINA STRESS TEST Please see separate stress test report in [facility] for full findings IMAGE PROTOCOL Rest/Stress 1 Lexiscan Day Radiopharmaceutical Dose (mCi) Administration Site Administered by Rest: Tc-99m 11.0 IV SUMA Lim Sestamibi Stress:Tc-99m 32.6 IV SUMA Lim Sestamibi Rest: 12-Jun-2021 60 Discovery 630 Stress: 12-Jun-2021 30 Discovery 630 0.4mg Lexiscan. Images obtained in supine and prone position. SPECT RESULTS Technical Quality: Excellent Raw Data Analysis: Normal Image Corrections: No attenuation or motion correction applied Summed Stress Score: 10 Summed Rest Score: 2 Summed Difference Score: 8 PERFUSION FINDINGS Myocardial perfusion imaging revealing a moderate area of moderately decreased tracer uptake in the mid and apical inferior, mid inferolateral, mid anterolateral, apical lateral and LV apex. Significant reversibility was noted in these regions, more so in the inferolateral segments FUNCTIONAL RESULTS (calculated via Gated SPECT) Stress Image LV EF (%): 74 Stress EDV (mL):96 TID: 1.07 Stress ESV (mL):25 FUNCTIONAL FINDINGS: Segmental wall motion analysis revealing no gross wall motion abnormalities IMPRESSIONS 1. Myocardial perfusion imaging revealing moderate area of decreased tracer uptake in the inferior, inferolateral and apical regions, the significant reversibility, suggestive of myocardial scarring with ischemia in the distribution of the left circumflex artery and right coronary artery. The ischemia appears to be predominantly in the circumflex artery territory. 2. Normal LV ejection fraction 74%. 3. LV wall motion analysis revealing no gross wall motion abnormalities. 4. Normal LV volume. Compared to the study from 11/13/2018, there ischemia appears to be new Dr Troy Joyce MD FACC (Electronically Signed) Final Date: 12 June 2021 13:40 S
[2021-06-12 11:02] VITALS: BP 153/86; PULSE 92
[2021-06-12] MEDS: regadenoson 0.4 Mg/5 ml Syringe IVP (11:03)
== END 2021-06-12 08:35 | disposition home or self-care (01) ==
LOC: RAD 08:38 → CDL 09:24
PROVIDERS: PCP Nurse Practitioner Family; Visit Provider Nurse Practitioner Family
DX: I20.0 Unstable angina (principal)
CPT/HCPCS: 78452; 93017; A9500; J2785

== ENCOUNTER → 2021-06-15 14:25 | Outpatient (BNVA) | payer MEDICARE, MEDICAID, SELFPAY | PROVIDERS: PCP Nurse Practitioner Family; Visit Provider Nurse Practitioner Family | DX: J44.1 Chronic obstructive pulmonary disease with (acute) exacerbation (principal); I10 Essential (primary) hypertension; E11.65 Type 2 diabetes mellitus with hyperglycemia; E78.2 Mixed hyperlipidemia; E55.9 Vitamin D deficiency, unspecified | CPT/HCPCS: 80053; 80061; 82306; 82607; 83036; 84443; 85025 ==

== ENCOUNTER → 2021-07-22 14:23 | Outpatient (BNVA) | payer MEDICARE, MEDICAID, SELFPAY | PROVIDERS: PCP Nurse Practitioner Family; Visit Provider Anesthesiology | DX: G89.29 Other chronic pain (principal); M47.817 Spondylosis without myelopathy or radiculopathy, lumbosacral region; M25.562 Pain in left knee; S32.020A Wedge compression fracture of second lumbar vertebra, initial encounter for closed fracture; X58.XXXA Exposure to other specified factors, initial encounter; F17.210 Nicotine dependence, cigarettes, uncomplicated; Z79.891 Long term (current) use of opiate analgesic | CPT/HCPCS: 99214 ==

== ENCOUNTER 2021-07-27 18:55 | Emergency (ER) | payer MEDICARE, MEDICAID, SELFPAY ==
[2021-07-27 18:57] VITALS: BP 114/77; PULSE 106; RESP 20; O2SAT 99
--- NOTE | 2021-07-27 20:23 | ED_ITS ---
HPI - General Adult General: Chief complaint: General Medical Stated complaint: hyperglycemia Time Seen by Provider: 07/27/21 20:23 History of Present Illness: HPI narrative: Ms. Ascencio is a 56-year-old lady with significant past medical history of hypertension, hyperlipidemia, COPD, diastolic heart failure, diabetes on insulin who presents emergency department due to high blood sugar. She has noticed higher than normal blood sugar for the past week or so. She reports at baseline, premeal her blood sugars in 300s however it has been in the 500s for the past week. She has mild associated lightheadedness and a few episodes of loose stools. She denies associated new infectious symptoms. No increased thirst, urination, hunger. No other specific changes in health noted. Overall the course of symptoms has persisted. Intensity is mild to moderate. No other specific exacerbating or alleviating factors identified. Of note, per chart review patient has history of poor compliance and was recently started on insulin regimen with plan for close foll ow-up with PCP. Review of Systems General: Reports: 10 or more systems reviewed and unremarkable except in HPI and below PFSH ED PFSH: Medical History (HFpEF) heart failure with preserved ejection fraction Anemia Candidiasis of vagina Chest pain, midsternal Chronic knee pain Chronic left-sided low back pain Chronic obstructive pulmonary disease, unspecified Chronic pain of left knee Compression fracture of L2 lumbar vertebra COPD (chronic obstructive pulmonary disease) Coronary artery disease due to type 2 diabetes mellitus Current every day smoker CVA (cerebral vascular accident) Diabetes type 2, uncontrolled Dyslipidemia Dyspnea Elevated troponin Encounter for long-term opiate analgesic use Essential hypertension Fibromyalgia, primary History of CVA (cerebrovascular accident) History of hypoglycemic coma Hyperlipidemia, mixed Insomnia Intervertebral disc disorder of lumbar region with myelopathy Leukocytosis Low back pain radiating to both legs Lumbosacral spondylosis without myelopathy Neuropathy NSTEMI (non-ST elevated myocardial infarction) Thought to be secondary to plaque rupture. Angiogram July 04 no flow- limiting lesions, or restenosis of previous stent from April 2020 Obesity (BMI 35.0-39.9 without comorbidity) Opioid contract exists Osteoarthritis of left knee Osteoarthritis of spine at multiple levels Pericardial effusion Peripheral sensory neuropathy due to type 2 diabetes mellitus Pneumonia Pressure ulcer Prosthetic joint infection Right hip pain Septic arthritis of knee, left Type 2 diabetes mellitus with diabetic autonomic (poly)neuropathy Vitamin D deficiency Surgical History History of arthroscopic surgery of elbow BILATERAL History of coronary angiogram Angiogram April 2020 with 90% circumflex lesion, drug-eluting stent placed by Dr. Jerome S/p bilateral carpal tunnel release S/P hysterectomy S/P knee surgery RIGHT S/P lumbar fusion DR. Shreya ZAYAS IN [place], [place] L4-L5, L5-S1 Status post left knee replacement Status post lumbar laminectomy Family History Other CAD (coronary artery disease) Cancer Diabetes Social History Second hand smoke exposure: Yes Smoking risk assessment/counseling performed?: Yes Alcohol intake: former Desire information about alcohol rehabilitation?: No Counseling given: No Desire information about substance/drug rehabilitation?: No Counseling given: No Caregiver/support person: No Lives independently: Yes Household members: family and other Details: son Housing: Manufactured/Mobile home Marital status: Unknown Marital status details: She and son state she is not service: No Current occupational status: unemployed Pets and animals: Yes History of recent travel: No Current gender identity: Female Physical Exam Narrative: EXAM NARRATIVE: GENERAL/CONSTITUTIONAL -mildly ill-appearing. No acute distress. Obese Eyes - PERRL, no conjunctival injection ENMT - Atraumatic external nose and ears. Moist mucous membranes NECK - supple. trachea midline CARDIOVASCULAR - regular rate and rhythm. Peripheral pulses 2+ and equal RESPIRATORY -clear to auscultation bilaterally. No retractions or accessory muscle use. ABDOMEN/GI - Nontender/Nondistended. MSK - Extremities without obvious deformity or tenderness to palpation SKIN - Warm, Dry NEURO - alert and appropriately oriented.. Moves all extremities equally. PSYCH - Appropriate mood and affect Course ED course: - Patient was seen and evaluated by me at bedside - Patient placed on cardiac monitors, IV access obtained - Initial evaluation notable for Mildly ill appearance, no acute distress - Fluids given - Labs notable for Leukocytosis, relative hemoconcentration. Thrombocytosis. Both leukocytosis and thrombocytosis are frequently present in patient's history. Metabolic panel without evidence of DKA. Urinalysis mildly concerning for urinary tract infection in the absence of other obvious cause of patient's hyperglycemia - Insulin given with improvement in blood glucose and symptoms on repeat check - Upon serial reexamination after treatment the patient was Improved - Based on patient history, evaluation, labs, and imaging as interpreted the most likely cause of the patient's condition is Hyperglycemia without evidence of DKA. And urinary tract infection. Antibiotic dose given here given the late hour - The results of ED evaluation were discussed with the patient including p rescriptions and/or symptomatic cares (if applicable) including appropriate and responsible use, followup plan, and return precautions. The patient verbalized understanding and felt safe for discharge. - Patient discharged in satisfactory condition. Vital Signs: Vital signs: Vital Signs Pulse Rate 80 07/27/21 23:36 Respiratory Rate 18 07/27/21 23:36 Blood Pressure 160/82 07/27/21 23:36 Pulse Oximetry 99 07/27/21 23:36 MDM - General Adult Medical Records: Attestation: I reviewed the patient's medical records. Lab Data: Attestation: I reviewed the patient's lab results. Labs: Lab Results 07/27/21 07/27/21 07/27/21 19:07 20:31 20:46 WBC 17.1 10^3/uL H 10 ^3/uL (4.0-10.0) RBC 5.56 10^6/uL H 10 ^6/uL (4.1-5.3) Hgb 14.4 g/dL g/dL (11.5-15.3) Hct 44.5 % % (37.0-47.0) MCV 80.0 fl L fl (81-99) MCH 25.9 pg L pg (28.0-34.0) MCHC 32.4 g/dL g/dL (30.0-36.0) RDW 15.6 % H % (12.1-15.1) Plt Count 729 10^3/cmm H 10 ^3/cmm (130-400) MPV 9.5 fL fL (7.4-10.4) Neut % (Auto) 59.9 % % Lymph % (Auto) 27.4 % % [place] % (Auto) 7.4 % % Eos % (Auto) 3.3 % % Baso % (Auto) 0.7 % % Neut # (Auto) 10.20 10^3/uL H 1 0^3/uL (1.8-7.7) Lymph # (Auto) 4.7 10^3/uL 10^3/ uL (0.8-4.8) [place] # (Auto) 1.3 10^3/uL H 10^ 3/uL (0.2-0.9) Eos # (Auto) 0.6 10^3/uL 10^3/ uL (0.0-0.8) Baso # (Auto) 0.1 10^3/uL 10^3/ uL (0.0-0.1) Nucleated RBC % (a uto) 0 % % Nucleated RBCs # 0.0 /100WBC /100W BC Sodium Potassium Chloride Carbon Dioxide Anion Gap BUN Creatinine GFR Calculation Glucose POC Glucose 442 mg/dL H mg/dL 445 mg/dL H mg/dL (70-110) (70-110) Serum Osmolality Calculated Osmolal ity Calcium Total Bilirubin AST ALT Alkaline Phosphata se Troponin T Baselin e Troponin T 120 Min tribe [place] Troponin T Total Protein Albumin Globulin Urine Color Urine Appearance Urine pH Ur Specific Gravit y Urine Protein Urine Glucose (UA) Urine Ketones Urine Blood Urine Nitrate Urine Bilirubin Urine Urobilinogen Ur Leukocyte Maria Elena ase Urine RBC Urine WBC Ur Squamous Epith Cells Amorphous Sediment Urine Bacteria Serum Ketones 07/27/21 07/27/21 07/27/21 20:46 20:46 20:46 WBC RBC Hgb Hct MCV MCH MCHC RDW Plt Count MPV Neut % (Auto) Lymph % (Auto) [place] % (Auto) Eos % (Auto) Baso % (Auto) Neut # (Auto) Lymph # (Auto) [place] # (Auto) Eos # (Auto) Baso # (Auto) Nucleated RBC % (a uto) Nucleated RBCs # Sodium 134 mmol/L L mmol /L (136-145) Potassium 4.1 mmol/L mmol/L (3.5-5.1) Chloride 95 mmol/L L mmol/ L (98-107) Carbon Dioxide 21 mmol/L L mmol/ L (22-29) Anion Gap 22.1 H (5-19) BUN 13 mg/dL mg/dL (6-20) Creatinine 0.9 mg/dL mg/dL (0.5-0.9) GFR Calculation 65.2 mL/min L mL/ min (90-130) Glucose 349 mg/dL H mg/dL (65-115) POC Glucose Serum Osmolality Calculated Osmolal ity 292 mOsm/kg mOsm/ kg (285-295) Calcium 9.8 mg/dL mg/dL (8.5-10.5) Total Bilirubin 0.3 mg/dL mg/dL (0.15-1.2) AST 12 U/L U/L (0-32) ALT 15 U/L U/L (0-33) Alkaline Phosphata se 106 IU/L H IU/L (35-105) Troponin T Baselin e 27 ng/L H ng/L (0-10) Troponin T 120 Min tribe Delta Troponin T Total Protein 7.3 g/dL g/dL (6.6-8.7) Albumin 4.2 g/dL g/dL (3.5-5.2) Globulin 3.1 g/dL g/dL (1.3-4.6) Urine Color Urine Appearance Urine pH Ur Specific Gravit y Urine Protein Urine Glucose (UA) Urine Ketones Urine Blood Urine Nitrate Urine Bilirubin Urine Urobilinogen Ur Leukocyte Maria Elena ase Urine RBC Urine WBC Ur Squamous Epith Cells Amorphous Sediment Urine Bacteria Serum Ketones Negative (Negative) 07/27/21 07/27/21 07/27/21 20:46 21:42 22:26 WBC RBC Hgb Hct MCV MCH MCHC RDW Plt Count MPV Neut % (Auto) Lymph % (Auto) [place] % (Auto) Eos % (Auto) Baso % (Auto) Neut # (Auto) Lymph # (Auto) [place] # (Auto) Eos # (Auto) Baso # (Auto) Nucleated RBC % (a uto) Nucleated RBCs # Sodium Potassium Chloride Carbon Dioxide Anion Gap BUN Creatinine GFR Calculation Glucose POC Glucose Serum Osmolality 291 mOsm/kg mOsm/ kg (278-305) Calculated Osmolal ity Calcium Total Bilirubin AST ALT Alkaline Phosphata se Troponin T Baselin e Troponin T 120 Min tribe 23.00 ng/L H ng/L (0-10) Delta Troponin T -4.00 ABS# L ABS# (0-10) Total Protein Albumin Globulin Urine Color Yellow (Yellow) Urine Appearance Clear (CLEAR) Urine pH 5 (5-7) Ur Specific Gravit y 1.015 (1.005-1.030) Urine Protein Neg (Negative) Urine Glucose (UA) 4+ H (Normal) Urine Ketones Negative (Negative) Urine Blood Neg (Negative) Urine Nitrate Positive H (Negative) Urine Bilirubin Neg (Negative) Urine Urobilinogen Norm mg/dL mg/dL (Negative) Ur Leukocyte Maria Elena ase Negative (Negative) Urine RBC 0-4 /hpf H /hpf (0-2) Urine WBC 0-4 /hpf H /hpf (0-5) Ur Squamous Epith Cells 0-4 /hpf H /hpf (0-5) Amorphous Sediment Not Reportable Urine Bacteria 4+ /hpf H /hpf (NONE) Serum Ketones 07/27/21 22:58 WBC RBC Hgb Hct MCV MCH MCHC RDW Plt Count MPV Neut % (Auto) Lymph % (Auto) [place] % (Auto) Eos % (Auto) Baso % (Auto) Neut # (Auto) Lymph # (Auto) [place] # (Auto) Eos # (Auto) Baso # (Auto) Nucleated RBC % (a uto) Nucleated RBCs # Sodium Potassium Chloride Carbon Dioxide Anion Gap BUN Creatinine GFR Calculation Glucose POC Glucose 261 mg/dL H mg/dL (70-110) Serum Osmolality Calculated Osmolal ity Calcium Total Bilirubin AST ALT Alkaline Phosphata se Troponin T Baselin e Troponin T 120 Min tribe [place] Troponin T Total Protein Albumin Globulin Urine Color Urine Appearance Urine pH Ur Specific Gravit y Urine Protein Urine Glucose (UA) Urine Ketones Urine Blood Urine Nitrate Urine Bilirubin Urine Urobilinogen Ur Leukocyte Maria Elena ase Urine RBC Urine WBC Ur Squamous Epith Cells Amorphous Sediment Urine Bacteria Serum Ketones EKG Data^: EKG 1: Attestation: I personally reviewed and interpreted this EKG as follows: EKG interpretation date: 07/27/21 EKG interpretation time: 20:27 Interpretation: Twelve-lead EKG shows regular rhythm at a rate of 101. AL interval 198, QRS duration 97, QTc 498. Normal axis. Interpretation: Sinus tachycardia, nonspecific ST segment abnormalities Discharge Plan Discharge Patient Disposition: Home Clinical Impression: Acute dehydration, UTI (urinary tract infection) Hyperglycemia due to type 2 diabetes mellitus Qualifiers: Diabetes mellitus long term care administrator insulin use: with intermediate use Qualified Code(s): E11.65 - Type 2 diabetes mellitus with hyperglycemia Condition: Stable Prescriptions: New nitrofurantoin macrocrystal 100 mg capsule 100 mg PO BID 7 Days Qty: 14 RF: 0 No Action sulfamethoxazole-trimethoprim [Bactrim] 400-80 mg tablet 1 tab PO DAILY Qty: 30 RF: 2 pantoprazole [Protonix] 40 mg tablet,delayed release (DR/EC) 40 mg PO DAILY@08 Qty: 90 RF: 3 hydromorphone 4 mg tablet 4 mg PO QID PRN (Reason: pain) 30 Days Qty: 120 RF: 0 hydromorphone 4 mg tablet 4 mg PO QID 30 Days Qty: 120 RF: 0 cyclobenzaprine 10 mg tablet 10 mg PO TID PRN (Reason: muscle spasm) 30 Days Qty: 90 RF: 1 pregabalin [Lyrica] 150 mg capsule 150 mg PO BID@0800,1800 30 Days Qty: 60 RF: 1 ergocalciferol (vitamin D2) 1,250 mcg (50,000 unit) capsule 1,250 mcg PO Q7D Qty: 4 RF: 2 (DME) pen needle, diabetic [Comfort EZ Pen [place]] 31 gauge x 5/16 needle See Rx Instructions .Route Qty: 100 RF: 6 Levemir FlexTouch U-100 Insuln 100 unit/mL (3 mL) insulin pen 10 unit SUBCUT DAILY@08 Qty: 15 RF: 2 Repatha SureClick 140 mg/mL pen injector 140 mg SUBCUT .[id number] Qty: 2 RF: 5 topiramate 50 mg tablet 50 mg PO BID@08,21 RF: 0 lidocaine 5 % adhesive patch,medicated 1 patch topical DAILY Qty: 30 RF: 2 albuterol sulfate [Ventolin HFA] 90 mcg/actuation HFA aerosol inhaler 2 puff INHALATION QID PRN (Reason: shortness of breath or wheezing) 30 Days Qty: 6.7 RF: 2 budesonide-formoterol [Symbicort] 160-4.5 mcg/actuation HFA aerosol inhaler 2 puff INHALATION Q12H Qty: 10.2 RF: 2 metformin 500 mg tablet extended release 24 hr 1,000 mg PO BID Qty: 120 RF: 2 cetirizine [Zyrtec] 10 mg tablet 10 mg PO DAILY PRN (Reason: allergy symptoms) Qty: 30 RF: 1 fluticasone propionate [Flonase Allergy Relief] 50 mcg/actuation spray,suspension 2 spray intranasal DAILY Qty: 16 RF: 2 nitroglycerin 0.4 mg tablet, sublingual See Rx Instructions .ROUTE .COMPLEX Qty: 25 RF: 3 levofloxacin 500 mg tablet 500 mg PO DAILY Qty: 7 RF: 0 insulin aspart U-100 [Novolog Flexpen U-100 Insulin] 100 unit/mL (3 mL) insulin pen 5 unit SUBCUT TID Qty: 15 RF: 1 oxybutynin chloride 5 mg tablet extended release 24hr 5 mg PO DAILY Qty: 30 RF: 2 furosemide [Lasix] 40 mg tablet 40 mg PO BID@0800,2100 PRN (Reason: Edema) Qty: 60 RF: 12 midodrine 5 mg tablet 5 mg PO BID@08,2100 Qty: 60 RF: 5 quetiapine 100 mg tablet 100 mg PO .qhs Qty: 30 RF: 2 atorvastatin 80 mg tablet 80 mg PO DAILY Qty: 30 RF: 2 Brilinta 90 mg tablet 90 mg PO BID@,21 Qty: 180 RF: 1 duloxetine 60 mg capsule, delayed rel sprinkle 60 mg PO DAILY@08 30 Days Qty: 30 RF: 0 losartan 50 mg tablet 50 mg PO DAILY@0800 Qty: 30 RF: 6 ranolazine 500 mg tablet extended release 12 hr 1,000 mg PO BID@, RF: 0 aspirin 81 mg Tablet,Chewable 81 mg PO DAILY@08 RF: 0 acetaminophen 325 mg Tablet 650 mg PO Q6H PRN (Reason: Mild/Mod Pain Or Temp >/= 101) Qty: 30 RF: 0 potassium chloride 20 mEq Tablet Extended Release 20 meq PO DAILY@08 RF: 0 isosorbide mononitrate 60 mg tablet extended release 24 hr 60 mg PO BID@, RF: 0 diclofenac sodium 1 % Gel See Rx Instructions .ROUTE .COMPLEX RF: 0 folic acid 1 mg tablet 1 mg PO DAILY@0800 RF: 0 ferrous sulfate 325 mg (65 mg iron) tablet,delayed release (DR/EC) 325 mg PO BID@08,2100 RF: 0 Discharge Orders: Discharge ED (Routine); Ordered 07/27/21 Ordered By: Luke Lowry Referrals: Naomy Goodwin FNP [Primary Care Provider] - Discharge Diet: Diabetic Discharge Activity: Resume usual activity Patient Instructions: Urinary Tract Infection in Women (ED), Diabetic Hyperglycemia (ED), Opioid Safety Activity Restrictions/Additional Instructions: Thank you for visiting the emergency department. You were seen and evaluated for high blood sugar in the context of diabetes. The exact cause of your symptoms is unclear however may be related to a urinary tract infection. This will be treated with antibiotics. Based on prior notes I recommend continuing your previously scheduled outpatient plan. Please continue to take your Levemir as directed and follow-up with your primary care provider. Please return to the emergency department for worsening symptoms, inability to tolerate oral intake, inability to control blood glucose, or anything else that you are concerned about and feel needs emergency department evaluation. Coding Level of Care Code ED Administrative Library Assistant for Nahed Alcazar
--- NOTE | 2021-07-27 20:34 | ECG_ITS ---
[facility] Test Date: 2021-07-27 Pat Name: Mayra Ascencio Department: Room: Gender: Female Clean Out Driller: : 1965 Requested By: Luke Lowry Order Number: [id number] Rosado MD: Brad Lyles M.D. Measurements Intervals [place] Rate: 101 P: 20 AL: 198 QRS: 12 QRSD: 97 T: 57 QT: 384 QTc: 498 Interpretive Statements SINUS TACHYCARDIA PROBABLE INFERIOR MYOCARDIAL INFARCTION , PROBABLY OLD [35 ms Q WAVE IN II/aVF] Compared to ECG 05/20/2021 01:29:41 Myocardial infarct finding now present Sinus rhythm no longer present First degree AV block no longer present T-wave abnormality no longer present Electronically Signed On 07-27-2021 23:08:21 CDT by Brad Lyles M.D. [email or web address]
[2021-07-27 20:37] LABS: Glucose Point of Care 445 mg/dL (70-110)
[2021-07-27] MEDS: sodium chloride 0.9% 1,000 ML 999 ML IV (20:39)
[2021-07-27 20:51] LABS: Basophils # 0.1 10^3/uL (0.0-0.1); Basophils % 0.7 %; Eosinophils # 0.6 10^3/uL (0.0-0.8); Eosinophils % 3.3 %; Hematocrit 44.5 % (37.0-47.0); Hemoglobin 14.4 g/dL (11.5-15.3); Lymphocytes # 4.7 10^3/uL (0.8-4.8); Lymphocytes % 27.4 %; Mean Corpuscular HGB Conc 32.4 g/dL (30.0-36.0); Mean Corpuscular Hemoglobin 25.9 pg (28.0-34.0); Mean Platelet Volume 9.5 fL (7.4-10.4); Monocytes # 1.3 10^3/uL (0.2-0.9); Monocytes % 7.4 %; Neutrophils % 59.9 %; Nucleated Red Blood Cells % 0 %; Platelet Count 729 10^3/cmm (130-400); Red Blood Count 5.56 10^6/uL (4.1-5.3); Red Cell Distribution Width 15.6 % (12.1-15.1); White Blood Count 17.1 10^3/uL (4.0-10.0)
[2021-07-27 21:11] LABS: Ketone (Acetest) Serum Negative (Negative)
[2021-07-27 21:18] LABS: Alanine Aminotransferase 15 U/L (0-33); Albumin Level 4.2 g/dL (3.5-5.2); Alkaline Phosphatase 106 IU/L (35-105); Anion Gap 22.1 (5-19); Aspartate Amino Transferase 12 U/L (0-32); Blood Urea Nitrogen 13 mg/dL (6-20); Calcium 9.8 mg/dL (8.5-10.5); Carbon Dioxide 21 mmol/L (22-29); Chloride 95 mmol/L (98-107); Globulin 3.1 g/dL (1.3-4.6); Glomerular Filtration Rate 65.2 mL/min (90-130); Glucose 349 mg/dL (65-115); Osmolality Calculated 292 mOsm/kg (285-295); Potassium 4.1 mmol/L (3.5-5.1); Sodium 134 mmol/L (136-145); Total Bilirubin 0.3 mg/dL (0.15-1.2); Total Protein 7.3 g/dL (6.6-8.7)
[2021-07-27 21:19] LABS: Troponin(5th) Baseline 27 ng/L (0-10)
[2021-07-27 21:30] LABS: Slide Review Slide Review Perform
[2021-07-27 21:56] LABS: Add Urine Culture? Yes; Add Urine Microscopic? YES; Bacteria Urine 4+ /hpf; Bilirubin Urine Neg (Negative); Blood Urine Neg (Negative); Glucose Urine UA 4+ (Normal); Ketones Urine Negative (Negative); Leukocyte Esterase Urine Negative (Negative); Nitrate Urine Positive (Negative); Protein Urine Neg (Negative); RBC Urine 0-4 /hpf (0-2); Specific Gravity, Urine 1.015 (1.005-1.030); Squamous Epithelial Cell Urine 0-4 /hpf (0-5); Urine Appearance Clear (CLEAR); Urine Color Yellow (Yellow); Urobilinogen Urine Norm (Negative); WBC Urine 0-4 /hpf (0-5); pH Urine 5 (5-7)
[2021-07-27] MEDS: insulin regular-human 100 units/1 mL 10 UNIT IVP (22:14)
[2021-07-27 22:21] VITALS: BP 153/85; PULSE 95; RESP 22; O2SAT 99
[2021-07-27 22:57] LABS: Glucose Point of Care 442 mg/dL (70-110)
[2021-07-27] MEDS: nitrofurantoin SR (BID) 100 mg Capsule PO (22:58)
[2021-07-27 23:01] LABS: Glucose Point of Care 261 mg/dL (70-110)
[2021-07-27 23:36] VITALS: BP 160/82; PULSE 80; RESP 18; O2SAT 99
[2021-07-29 12:32] LABS: Osmolality Serum 291 mOsm/kg (278-305)
== END 2021-07-27 23:34 | disposition home or self-care (01) ==
PROVIDERS: Emergency Medicine; Emergency Provider Emergency Medicine; PCP Nurse Practitioner Family
DX: E11.65 Type 2 diabetes mellitus with hyperglycemia (principal); N39.0 Urinary tract infection, site not specified; E86.0 Dehydration; Z79.84 Long term (current) use of oral hypoglycemic drugs; Z79.82 Long term (current) use of aspirin; Z79.4 Long term (current) use of insulin; J44.9 Chronic obstructive pulmonary disease, unspecified; I25.10 Atherosclerotic heart disease of native coronary artery without angina pectoris; Z86.73 Personal history of transient ischemic attack (TIA), and cerebral infarction without residual deficits; I10 Essential (primary) hypertension; E78.2 Mixed hyperlipidemia; I25.2 Old myocardial infarction; E11.40 Type 2 diabetes mellitus with diabetic neuropathy, unspecified; Z77.22 Contact with and (suspected) exposure to environmental tobacco smoke (acute) (chronic)
CPT/HCPCS: 36416; 80053; 81001; 82009; 82962; 83930; 84484; 85025; 87077; 87086; 87186; 93005; 96361; 96374; 99283; J1815; J7030

== ENCOUNTER → 2021-08-10 13:44 | Outpatient (BNVA) | payer MEDICARE, MEDICAID, SELFPAY | PROVIDERS: PCP Nurse Practitioner Family; Visit Provider Internal Medicine Cardiovascular Disease | DX: I10 Essential (primary) hypertension (principal); R94.39 Abnormal result of other cardiovascular function study; I25.10 Atherosclerotic heart disease of native coronary artery without angina pectoris | CPT/HCPCS: 80048; 83880; 85610; 87635 ==

== ENCOUNTER 2021-08-14 15:42 | Observation (INO) | payer MEDICARE, MEDICAID, SELFPAY ==
[2021-08-14] VITALS (36 sets, daily range): BP systolic 100–148; BP diastolic 57–96; PULSE 84–105; RESP 16–22; TEMP 36.5–37.6; O2SAT 90–98; BMI 35.0
--- NOTE | 2021-08-14 07:30 | XACV_ITS ---
Ht: 168 cm Wt: 98 kg BSA: 2.18 m2 Gender: Female : 1965 Any Known Allergies: Penicillins Exam Priority: Routine Indication(s): - Abnormal nuclear perfusion study Procedure(s): Procedure Description: Diagnostic procedure Procedure Description: PCI procedure Procedure Description: Drug Eluting Coronary Stent Procedure Description: Miscellaneous Procedure Description: ACT Procedure Description: Coronary Angiography Queenie KERN; Diagnostic Cath Status: Elective Diagnostic Findings * Left Main has no disease. * Left Anterior Descending has no disease. * Right Coronary Artery has no disease. * Proximal Circumflex to Mid Circumflex: severe 90% stenosis, USAMA: 3 flow. * Coronary angiography shows right dominance. PCI Status: Elective Interventional Findings * Proximal Circumflex to Mid Circumflex: 90% stenosis treated with a Drug Eluting Stent. 0% residual stenosis, USAMA: 3 flow. Conclusions 1. There is severe coronary artery disease with one vessel disease. 2. Proximal Circumflex to Mid Circumflex was treated with a Drug Eluting Stent. Recommendations * 1-Return to inpatient for close monitoring and routine cath care 2-Risk factor modification for secondary prevention 3-Statin with LDL goal <70 mg/dl, aspirin 81 mg life-long 4-Patient was pre-loaded with 180mg of Brillinta. Continue Brillinta 90mg p.o. twice daily for at least one year. We will assess at the end of one year again to continue it further or not 5-Continue optimal medical management 6-Follow up with Dr. Jerome in four weeks and with your PCP in one week . Diagnostic RX Recommendation: PCI w/o planned CABG Pressures Phase:Rest AO : / ( 0 ) @ 8:57:00 AM / ( -2 ) @ 9:07:00 AM 139 / 51 ( 87 ) @ 9:16:00 AM 87 / 29 ( 51 ) @ 9:29:00 AM 88 / 14 ( 35 ) @ 9:39:00 AM Clinical Evaluation EBL: 5mL-10mL Procedural Details Pre-Procedure Time Out. Identified patient by full name and date of as verbalized by the patient/guarantor. Does the consent match the physician's order: Yes. Accurate & Complete Informed Consent: Yes. Inpatient/Outpatient History & Physical on Chart: Yes. If H&P is completed, is and addenduem needed: Yes; If yes, is the addendum complete: No. Visualize and Verify Site with Patient/Guarantor: N/A. Relevant Radiology Images available: N/A. Pre-op teaching completed and patient verbalized understanding. The risks, benefits, and alternatives of sedation and/or procedure were discussed by physician. The patient agrees to continue. Procedure started. [facility] Clinical Fraility Score: 4: Vulnerable. Vc++ Developer Indications: Other, Chest pain, Abnormal nuclear study. Chest Pain Symptom Assessment: Typical Angina Symptoms. Cardiovascular Instability: No, stable. Correct patient, site and procedure confirmed by cath team. Current diagnosis: Chest Pain, Anbormal Stress test. PERRLA. Strong, equal hand alcohol law enforcement agent bilaterally. Lungs clear x 5 lobes. IV Site on Arrival: 20 gauge in the right anticubital. IV Fluids: 0.9% NaCl at KVO. 0 mL infused prior to laboratory specialist. Pre Procedural Pulses: bilateral radial was 2+. Pre Procedural Pulses: bilateral dorsalis pedis was 2+. Pre Procedural Pulses: bilateral posterior tibial was 2+. Oxygen started at 2liters/min via nasal canula. bilateral groins was prepped with chloroprep then draped in the usual sterile fashion. Baseline sample Acquired. HR: 89 BPM. Physician notified. Current Diagnosis : Chest Pain. Abnormal Labs discussed with MD prior to start. Okay to proceed. Physician arrived. Physician scrubbed in. Immediate Pre-Procedure Time Out. Correct Patient: Yes; Correct Procedure: Yes; Correct Site: Yes; Correct Patient Position: Yes; Correct Supplies: Yes; Dried Flammable Prep: Yes; Blood Products Available: N/A;. Lidocaine 1% infiltrated to the right groin. Arterial access obtained with micropuncture set. A 5 mauritian JL4 catheter in over wire. Multiple views taken of left coronary artery. Catheter removed over the wire. A 5 mauritian JR4 catheter in over wire. Multiple views taken of right coronary artery. Catheter removed over the wire. 6 mauritian XB 3 guide catheter was inserted over the wire. Guide seated in the LCS. [place] guidewire was advanced through the guide catheter to lesion in the mid Circ. Inflation number : 1 A AB TREK 3.00X15 RX BALLOON was prepped and advanced across the Mid CX , then inflated to 12 FERNANDEZ for 0:30 seconds. Inflation number: 2 The AB TREK 3.00X15 RX BALLOON was reinflated across the Mid CX, to 12 FERNANDEZ for 0:12 seconds. Balloon out. Inflation Number : 3 A ESTELA Alexandre GERARDO 3.5X22 HAILEE -Lot Number# [id number] was prepped and advanced across the Mid CX. The stent was deployed at 12 FERNANDEZ for 0:16 seconds. EXP 12/07/22. Stent balloon out over the wire. ACT drawn. Results 207 seconds. Therapeutic limits - pre-heparin administration 90-150 seconds and monitoring heparin during a vascular procedure >250 seconds. Angiography performed. Angiography performed. Physician review of films. Catheter removed over the wire. Physician scrubbed out. A Suture was successful obtaining hemostatsis at the Femoral artery insertion site. Sheath(s) sutured into position with 2-0 silk and sterile 4x4's and Op-site applied over the site. No oozing or signs and symptoms of hematoma noted. Arterial sheath flushed and connected to tranducer and pressure bag with heparinized saline. Post Procedure: Pulses reassessed and unchanged. PERRLA. Strong, equal hand alcohol law enforcement agent bilaterally. No VTE prophylaxis required. Admit Source: Out Patient. Medication's Wasted: Nitro = 49.6 ml. Medication's Wasted: Heparin = 3000 units. Total IV fluids: 297 mL. Fluoro: 5:07. Contrast type used: Omnipaque 300 mgI/mL, 500 mL bottle. [id number]. Post-op diagnosis: Significant Mid Circumflex disease. Complications: None. Estimated blood loss: 5mL-10mL. Procedure completed. [facility] Access Site Site: Femoral artery Sheath Size: 5 Fr Hemostasis Method: Suture Hemostasis Success: Successful Procedure Medications Start: 10:01 AM Stop: 10:01 AM Medication: Versed Amount: 1 mg Route: I.V. Start: 10:04 AM Stop: 10:04 AM Medication: Hydralazine Amount: 20 mg Route: I.V. Start: 10:10 AM Stop: 10:10 AM Medication: Versed Amount: 1 mg Route: I.V. Start: 10:22 AM Stop: 10:22 AM Medication: Versed Amount: 1 mg Route: I.V. Start: 10:23 AM Stop: 10:23 AM Medication: Heparin Amount: 7000 units Route: I.V. Start: 10:24 AM Stop: 10:24 AM Medication: Heparin Amount: 2000 units Route: I.V. Start: 10:35 AM Stop: 10:35 AM Medication: 0.9% Saline Amount: 250 ml Route: I.V. bolus Start: 10:42 AM Stop: 10:42 AM Medication: Nitrogylcerin Amount: 200 mcg Route: I.C. Start: 10:42 AM Stop: 10:42 AM Medication: Heparin Amount: 4000 units Route: I.V. Start: 10:46 AM Stop: 10:46 AM Medication: Nitrogylcerin Amount: 200 mcg Route: I.C. Start: 10:52 AM Stop: 10:52 AM Medication: Aggrastat 12.5 mg/250 mL Amount: 49 ml Route: I.V. bolus Start: 10:53 AM Stop: 10:53 AM Medication: Brilinta Amount: 90 mg Route: P.O. Start: 10:57 AM Stop: 10:57 AM Medication: Zofran (ondansetron) Amount: 4 mg Route: I.V. I, the attending physician, have reviewed and verified all procedure medications. Yes, all medications given per verbal order History/Risk Factors Hypertension: Yes Dyslipidemia: Yes Peripheral Arterial Disease (PAD): No Myocardial Infarction (KS): Yes Obesity: Yes Renal Disease: No Tobacco Use: Current/Recent(w/in 1 year) Prior Interventions PCI: Yes CABG: No Valve Surgery: No Date of PCI: 04/16/2020 Report Signatures Finalized by Darrell Jerome MD on 08/28/2021 11:07 AM
[2021-08-14] MEDS: diphenhydrAMINE 50 mg Capsule PO (07:55)
--- NOTE | 2021-08-14 09:37 | W.PM.OPSUD ---
Surgery/Procedure H&P Update DATE OF PROCEDURE: August 14, 2021 DATE H&P PERFORMED: 08/03/21 H&P UPDATE INFORMATION: I have reviewed H&P completed within last 30 days and I have examined patient prior to procedure PREOP DIAGNOSIS: Abnormal stress test, chest pain PLANNED PROCEDURE: Operation Date: 08/14/21 08:30 Proposed Procedures p Cardiac Catheterization(Left) - Darrell Jerome MD PATIENT REASSESSED PRIOR TO SEDATION, WITH NO CHANGE NOTED: Yes PHYSICAL EXAM: alert, oriented x 3 and clear to auscultation bilaterally AIRWAY EVAL/ANESTHESIA PLAN: ASA II and Risks, benefits & alternatives of sedation and/or procedure discussed ADDITIONAL INFORMATION: Patient may well have a carpal tunnel surgery in near future on her right hand. She is going to see Dr. Molina in orthopedics. I called Dr. Molina and discuss that patient may will be on Brilinta which is antiplatelet as per our discussion Dr. Amaya is willing to consider surgery without interrupting dual antiplatelet therapy if needed. Patient has been explained all risk benefit and alternative for the procedure. She understand risk for stroke contrast-induced nephropathy major minor bleed urgent emergent surgery. She would like to proceed with it.
--- NOTE | 2021-08-14 11:00 | SUR.PHASEII ---
RECEIVED THE PATIENT BACK FROM THE CLAY MIXER VIA STRETCHER S/P PCI OF THE MID CIRCUFLEX. 6FR SHEATH INTACT TO THE RIGHT GROIN. SUTURED IN TO A HEPARIN FLUSH BAG. PATIENT ALERT TO VERBAL STIMULI BUT DROWSY FROM SEDATION. PECAN HULLER PLACED AND VITAL SIGNS OBTAINED. NO OTHER ASSESSMENT CHANGES NOTED AT THIS TIME. WILL TRANSFER TO CSU OR ICU WHEN BED BECOMES AVAILABLE.
[2021-08-14] MEDS: sodium chloride 0.9% 1,000 ML 100 ML IV ×2 (11:05→17:16)
--- NOTE | 2021-08-14 13:27 | SUR.PHASEI ---
1300: VERBAL ORDER RECEIVED FROM DR TEJEDA TO DRAW AN ACT AND CANCEL THE PTT. ACT WAS 127. THE 6FR SHEATH WAS PULLED WITH CATH TIP INTACT. MANUAL PRESSURE HELD X 20 MINUTES WITH NO BLEEDING OR HEMATOMA NOTED. AN OPSITE WAS APPLIED TO THE SITE. THE PATIENT TOLERATED WELL SLEEPING THE ENTIRE 20 MINUTES. 1330: DR TEJEDA AT BEDSIDE TO SPEAK WITH THE PATIENT'S FATHER.
[2021-08-14 16:55] LABS: Glucose Point of Care 241 mg/dL (70-110)
--- NOTE | 2021-08-14 17:00 | PC.NURSE ---
Shift Note Frequent safety and comfort rounds continue. Orders and/or nursing care completed as indicated. Patient monitored for response to intervention and treatment(s). Education provided includes post angiogram home care instructions such as activity restrictions and s/s of bleeding, hematoma, infection. Patient and/or underwriting account representative verbalizes understanding. Will continue to monitor.
[2021-08-14] MEDS: insulin lispro 100 unit/1 mL SUBCUT (17:14)
[2021-08-14] MEDS: pregabalin 150 mg Capsule PO (17:14)
[2021-08-14] MEDS: quetiapine 100 mg Tablet PO (19:29)
[2021-08-14] MEDS: isosorbide mononitrate ER 60 mg Tablet PO (19:29)
[2021-08-14] MEDS: ticagrelor 90 mg Tablet PO (19:29)
[2021-08-14] MEDS: midodrine 5 mg TABLET PO (19:29)
--- NOTE | 2021-08-14 19:40 | PC.NURSE ---
Dr. Jerome notified of patient asking for home medication of Dilaudid. Ordered to start patient on home dose of this medication.
--- NOTE | 2021-08-14 19:42 | PC.NURSE ---
Patient ambulated with nurse. VSS. Right groin site WNL.
[2021-08-15] VITALS (10 sets, daily range): BP systolic 102–182; BP diastolic 63–99; PULSE 86–113; RESP 16–24; TEMP 36.7; O2SAT 91–94
--- NOTE | 2021-08-15 02:42 | PC.NURSE ---
Shift Note Frequent safety and comfort rounds continue. Orders and/or nursing care completed as indicated. Patient monitored for response to intervention and treatment(s). Education provided includes post-cath care and restrictions. Patient and/or service representative verbalized understanding. Will continue to monitor.
--- NOTE | 2021-08-15 04:01 | PC.NURSE ---
Patient gave home phone number for her mother and father [phone].
[2021-08-15 04:55] LABS: Basophils # 0.1 10^3/uL (0.0-0.1); Basophils % 0.7 %; Eosinophils # 0.8 10^3/uL (0.0-0.8); Eosinophils % 5.8 %; Hematocrit 34.7 % (37.0-47.0); Hemoglobin 11.1 g/dL (11.5-15.3); Lymphocytes # 3.9 10^3/uL (0.8-4.8); Lymphocytes % 28.5 %; Mean Corpuscular Hemoglobin 25.9 pg (28.0-34.0); Mean Corpuscular Volume 81.1 fl (81-99); Mean Platelet Volume 9.7 fL (7.4-10.4); Monocytes # 1.2 10^3/uL (0.2-0.9); Monocytes % 8.9 %; Neutrophils # 7.51 10^3/uL (1.8-7.7); Neutrophils % 55.5 %; Nucleated Red Blood Cells % 0 %; Platelet Count 374 10^3/cmm (130-400); Red Blood Count 4.28 10^6/uL (4.1-5.3); Red Cell Distribution Width 16.5 % (12.1-15.1); White Blood Count 13.5 10^3/uL (4.0-10.0)
[2021-08-15 05:32] LABS: Anion Gap 13.1 (5-19); Blood Urea Nitrogen 8 mg/dL (6-20); Carbon Dioxide 25 mmol/L (22-29); Chloride 100 mmol/L (98-107); Creatinine Clr Calc Pharmacy 152.1942; Glomerular Filtration Rate 128.6 mL/min (90-130); Glucose 224 mg/dL (65-115); Osmolality Calculated 283 mOsm/kg (285-295); Potassium 4.1 mmol/L (3.5-5.1); Sodium 134 mmol/L (136-145)
[2021-08-15 07:22] LABS: Glucose Point of Care 343 mg/dL (70-110)
[2021-08-15] MEDS: insulin lispro 100 unit/1 mL SUBCUT ×2 (07:52→11:13)
[2021-08-15] MEDS: ticagrelor 90 mg Tablet PO (07:53)
[2021-08-15] MEDS: pregabalin 150 mg Capsule PO (07:53)
[2021-08-15] MEDS: losartan 50 mg Tablet PO (07:54)
[2021-08-15] MEDS: duloxetine 60 mg Capsule PO (07:54)
[2021-08-15] MEDS: isosorbide mononitrate ER 60 mg Tablet PO (07:54)
[2021-08-15] MEDS: atorvastatin 40 mg Tablet 80 MG PO (07:54)
[2021-08-15] MEDS: pneumococcal (23 valent) SDV 0.5 mL IM (07:57)
[2021-08-15 11:03] LABS: Glucose Point of Care 270 mg/dL (70-110)
[2021-08-15] MEDS: hyDRALAzine 20 mg/mL INJ 1 mL 10 MG IVP (12:11)
--- NOTE | 2021-08-15 13:29 | P.SS_ITS ---
Short Stay Summary Providers Date of Admit/Discharge: 08/15/21 Attending Provider: Darrell Jerome MD Primary Care Provider: KATHY Stewart Chief Complaint: [id number] [id number] HPI History of Present Illness Mayra Ascencio is a 56 year old female past medical history significant for hypertension hyperlipidemia coronary artery disease congestive heart failure diabetes mellitus underwent left heart cath for chest pain abnormal stress test noted to have significant mid LCx which was 90% stenotic treated with balloon angioplasty followed by single drug-eluting stent. Postop care was complicated with uncontrolled hypertension, medicine were optimized blood pressures started improving. Today she does not voice any complaint denies any chest pain denies shortness of breath PND orthopnea overall she thinks she is doing much better. We will titrate her medicine as she has labile blood pressure. We are going to discharge her once blood pressure is stable. Right groin wound looks good no hematoma. We will follow her up in cardiology clinic within 7 days. We will reinstitute patient yesterday and blood pressure is high once we will resume home meds hopefully blood pressure will be under control advised keep log of blood pressure pulse and bring with herself to the clinic with. Review of Systems Eyes: Denies: photophobia ENMT: Denies: enlarged tonsils Musc: Denies: joint warmth Skin/Breast: Reports: surgical incision All/Imm: Denies: acute wheezing Home Meds/Allergies Home Medications and Allergies Home Medications Medication Instructions Recorded Confirmed Type nitrofurantoin 100 mg PO Q12H 08/12/21 08/13/21 History monohydrate/macrocrystals 100 mg capsule Allergies Allergy/AdvReac Type Severity Reaction Status Date / Time adhesive Allergy Unknown Verified 08/14/21 08:45 clindamycin Allergy ADR-Itching Verified 08/14/21 08:45 codeine Allergy Unknown Verified 08/14/21 08:45 fentanyl Allergy ALGY-Difficulty Verified 08/14/21 09:48 Breathing hydrocodone Allergy Unknown Verified 08/14/21 08:45 latex Allergy ALGY-Swell Verified 08/14/21 08:45 Lip/Tongue/Throat naproxen [From Naprosyn] Allergy Unknown Verified 08/14/21 08:45 nut - unspecified Allergy ALGY-Anaphy Verified 08/14/21 08:45 laxis oxycodone [From Roxicodone] Allergy ADR-Muscle Verified 08/14/21 08:45 Pain Penicillins Allergy Unknown Verified 08/14/21 08:45 sulfamethoxazole Allergy ADR-Migrain Verified 08/14/21 08:45 [From Bactrim] e trimethoprim [From Bactrim] Allergy ADR-Migrain Verified 08/14/21 08:45 e PFSH Acute PFSH: Medical History (HFpEF) heart failure with preserved ejection fraction Anemia Candidiasis of vagina Chest pain, midsternal Chronic knee pain Chronic left-sided low back pain Chronic obstructive pulmonary disease, unspecified Chronic pain of left knee Compression fracture of L2 lumbar vertebra COPD (chronic obstructive pulmonary disease) Coronary artery disease due to type 2 diabetes mellitus Current every day smoker CVA (cerebral vascular accident) Diabetes type 2, uncontrolled Dyslipidemia Dyspnea Elevated troponin Encounter for long-term opiate analgesic use Essential hypertension Fibromyalgia, primary History of CVA (cerebrovascular accident) History of hypoglycemic coma Hyperlipidemia, mixed Insomnia Intervertebral disc disorder of lumbar region with myelopathy Leukocytosis Low back pain radiating to both legs Lumbosacral spondylosis without myelopathy Neuropathy NSTEMI (non-ST elevated myocardial infarction) Thought to be secondary to plaque rupture. Angiogram July 04 no flow- limiting lesions, or restenosis of previous stent from April 2020 Obesity (BMI 35.0-39.9 without comorbidity) Opioid contract exists Osteoarthritis of left knee Osteoarthritis of spine at multiple levels Pericardial effusion Peripheral sensory neuropathy due to type 2 diabetes mellitus Pneumonia Pressure ulcer Prosthetic joint infection Right hip pain Septic arthritis of knee, left Type 2 diabetes mellitus with diabetic autonomic (poly)neuropathy Vitamin D deficiency Surgical History History of arthroscopic surgery of elbow BILATERAL History of coronary angiogram Angiogram April 2020 with 90% circumflex lesion, drug-eluting stent placed by Dr. Jerome S/alis bilateral carpal tunnel release S/P hysterectomy S/P knee surgery RIGHT S/P lumbar fusion DR. Shreya ZAYAS IN [place], [place] L4-L5, L5-S1 Status post left knee replacement Status post lumbar laminectomy Family History Other CAD (coronary artery disease) Cancer Diabetes Social History Second hand smoke exposure: Yes Smoking risk assessment/counseling performed?: Yes Alcohol intake: former Desire information about alcohol rehabilitation?: No Counseling given: No Desire information about substance/drug rehabilitation?: No Counseling given: No Caregiver/support person: No Lives independently: Yes Household members: family and other Details: son Housing: Manufactured/Mobile home Marital status: Unknown Marital status details: She and son state she is not service: No Current occupational status: unemployed Pets and animals: Yes History of recent travel: No Current gender identity: Female Dietary Habits: Current diet type/program: regular and diabetic Caffeine: Yes Caffeine intake frequency: carbonated beverages Exercise: What type of physical activity do you participate in?: none Physical activity functional status: independent ambulation Safety: Seatbelt use: always Helmet use: No Drive intoxicated or ride with intoxicated local combination truck driver?: never Home Safety: Working smoke detector in home: Yes Fire extinguisher in home: Yes Firearms in home: No Vitals/I&O/Wt Last Vital Signs Temp 98.0 F 08/15/21 04:00 Pulse 102 H 08/15/21 09:21 Resp 20 H 08/15/21 13:14 BP 182/99 08/15/21 09:21 Pulse Ox 94 08/15/21 13:14 08/14/21 08/15/21 08/15/21 22:59 06:59 14:59 Intake Total 1696.333 / 1696.333 300 / 1995.333 120 / 120 Balance 1696.333 / 1696.333 300 / 1995.333 120 / 120 Weight last 48 hrs Weight 217 lb Physical Exam Narrative: EXAM NARRATIVE: GENERAL: Patient is alert, awake and oriented x3. NECK: No jugular vein distension. HEENT: No cyanosis. No icterus. No pallor. HEART: Regular S1 and S2. No murmur, rub or gallop. LUNGS: Clear to auscultate bilaterally. ABDOMEN: Soft, nontender and nondistended. Positive bowel sounds. No guarding, rebound or tenderness. CENTRAL NERVOUS SYSTEM: Grossly nonfocal. EXTREMITIES: Lower extremities without edema bilaterally. 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 Routin e Exams 08/14/21 07:30 Taken Discharge Plan Discharge Patient Disposition: Home Condition: Stable Prescriptions: New aspirin [Adult Aspirin Regimen] 81 mg tablet,delayed release (DR/EC) 81 mg PO DAILY Qty: 30 RF: 4 Continued hydromorphone 4 mg tablet 4 mg PO QID PRN (Reason: pain) 30 Days Qty: 120 RF: 0 hydromorphone 4 mg tablet 4 mg PO QID 30 Days Qty: 120 RF: 0 cyclobenzaprine 10 mg tablet 10 mg PO TID PRN (Reason: muscle spasm) 30 Days Qty: 90 RF: 1 pregabalin [Lyrica] 150 mg capsule 150 mg PO BID@0800,1800 30 Days Qty: 60 RF: 1 ergocalciferol (vitamin D2) 1,250 mcg (50,000 unit) capsule 1,250 mcg PO Q7D Qty: 4 RF: 2 (DME) pen needle, diabetic [Comfort EZ Pen Salt Flat] 31 gauge x 5/16 needle See Rx Instructions .Route Qty: 100 RF: 6 Levemir FlexTouch U-100 Insuln 100 unit/mL (3 mL) insulin pen 10 unit SUBCUT DAILY@08 Qty: 15 RF: 2 Repatha SureClick 140 mg/mL pen injector 140 mg SUBCUT .[id number] Qty: 2 RF: 5 albuterol sulfate [Ventolin HFA] 90 mcg/actuation HFA aerosol inhaler 2 puff INHALATION QID PRN (Reason: shortness of breath or wheezing) 30 Days Qty: 6.7 RF: 2 nitroglycerin 0.4 mg tablet, sublingual See Rx Instructions .ROUTE .COMPLEX Qty: 25 RF: 3 insulin aspart U-100 [Novolog Flexpen U-100 Insulin] 100 unit/mL (3 mL) insulin pen 5 unit SUBCUT TID Qty: 15 RF: 1 oxybutynin chloride 5 mg tablet extended release 24hr 5 mg PO DAILY Qty: 30 RF: 2 levofloxacin 750 mg tablet 750 mg PO DAILY Qty: 7 RF: 0 nitrofurantoin monohyd/m-cryst 100 mg capsule 100 mg PO Q12H RF: 0 furosemide [Lasix] 40 mg tablet 40 mg PO BID@0800,2100 PRN (Reason: Edema) Qty: 60 RF: 12 midodrine 5 mg tablet 5 mg PO BID@0800,2100 Qty: 60 RF: 5 quetiapine 100 mg tablet 100 mg PO .qhs Qty: 30 RF: 2 atorvastatin 80 mg tablet 80 mg PO DAILY Qty: 30 RF: 2 Brilinta 90 mg tablet 90 mg PO BID@,21 Qty: 180 RF: 1 duloxetine 60 mg capsule, delayed rel sprinkle 60 mg PO DAILY@08 30 Days Qty: 30 RF: 0 losartan 50 mg tablet 50 mg PO DAILY@0800 Qty: 30 RF: 6 isosorbide mononitrate 60 mg tablet extended release 24 hr 60 mg PO BID@, Qty: 180 RF: 0 (DME) pen needle, diabetic [Comfort EZ Pen Salt Flat] 32 gauge x 5/32 needle See Rx Instructions .Route Qty: 100 RF: 2 acetaminophen 325 mg Tablet 650 mg PO Q6H PRN (Reason: Mild/Mod Pain Or Temp >/= 101) Qty: 30 RF: 0 Discharge Orders: Discharge Order (Routine); Ordered 08/15/21 Ordered By: Darrell Jerome Referrals: Darrell Jerome MD [Physician] - 6 Weeks ([facility] will contact you to schedule an follow-up appointment in 4 to 6 weeks. If you haven't heard from them by Tuesday afternoon. Please call ) Aurea Walters FNP [Nurse Practitioner] - 1 week ([facility] will contact you to schedule an follow-up appointment in 1 week. If you haven't heard from them by Tuesday afternoon. Please call ) Discharge Diet: Cardiac and Diabetic Patient Instructions: Aspirin (By mouth), Coronary Angioplasty (DC), Opioid Safety, Post Angiogram Home Care Instructions Activity Restrictions/Additional Instructions: Follow-up with Aurea Walters in 7 days, follow-up with Dr. Jerome in 4 to 6 weeks Attestations Medical Necessity Statement*: Patient can be discharged home Time Spent in Patient Care*: less than 30 min Status at Discharge: Cognitive status at discharge: mildly impaired cognition , Behavioral status at discharge: cooperative , Quality Metrics Clinical Quality Measures: During this hospital stay, did patient experience: None Coding Level of Care Code Established Pt Acute Ict Development Manager for Chg Fwd Patient Type Established History Detailed Exam Detailed Medical Decision Making Moderate Complexity
--- NOTE | 2021-08-17 16:40 | PC.RESP ---
SMOKING CESSATION AND PULMONARY REHAB INFORMATION SENT TO PATIENT.
== END 2021-08-15 16:30 | disposition home or self-care (01) ==
LOC: CSU 15:43
PROVIDERS: Admitting Provider Internal Medicine Cardiovascular Disease; PCP Nurse Practitioner Family; Visit Provider Internal Medicine Cardiovascular Disease
DX: R07.9 Chest pain, unspecified (principal); R94.39 Abnormal result of other cardiovascular function study; I25.10 Atherosclerotic heart disease of native coronary artery without angina pectoris; E78.5 Hyperlipidemia, unspecified; I11.0 Hypertensive heart disease with heart failure; I50.9 Heart failure, unspecified; E66.9 Obesity, unspecified; E11.40 Type 2 diabetes mellitus with diabetic neuropathy, unspecified; Z68.37 Body mass index [BMI] 37.0-37.9, adult; I25.2 Old myocardial infarction; J44.9 Chronic obstructive pulmonary disease, unspecified; Z99.81 Dependence on supplemental oxygen; Z79.4 Long term (current) use of insulin; Z79.82 Long term (current) use of aspirin; Z79.891 Long term (current) use of opiate analgesic; Z86.73 Personal history of transient ischemic attack (TIA), and cerebral infarction without residual deficits; Z23 Encounter for immunization
CPT/HCPCS: 36415; 36416; 80048; 82962; 85025; 85347; 90471; 90732; 93454; 96372; C1725; C1769; C1874; C1887; C1894; C9600; G0378; J0360; J1644; J1815; J2250; J2405; J3246; J3490; J7030; Q0163; Q9967

== ENCOUNTER 2021-08-24 15:05 | Observation (INO) | payer MEDICARE, MEDICAID, SELFPAY ==
[2021-08-24] VITALS (9 sets, daily range): BP systolic 81–144; BP diastolic 60–85; PULSE 77–91; RESP 18–23; TEMP 36.6–37.2; O2SAT 94–97; BMI 33.9; BMI 37.7
--- NOTE | 2021-08-24 15:18 | XR_ITS ---
WS: [id number] PORTABLE CHEST HISTORY: weakness COMPARISON: 05/19/2021 Lung volumes are decreased. Very mild haziness and interstitial thickening throughout both lungs silvia lar to the prior study. No pleural effusion or pneumothorax. Cardiac size: Normal. Mediastinum/Aorta: Normal mediastinum. No osseous abnormality seen. XR/XR chest 1V portable [id number] IMPRESSION: Mild interstitial thickening. May be due to small amount of fluid overload or p neumonitis. Similar to the prior study.
--- NOTE | 2021-08-24 15:19 | ECG_ITS ---
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 Measurements Intervals Lyle Rate: 81 P: 24 NH: 184 QRS: 32 QRSD: 111 T: 64 QT: 404 QTc: 470 Interpretive Statements SINUS RHYTHM LOW QRS VOLTAGE IN PRECORDIAL LEADS [QRS DEFLECTION < 1.0 mV IN CHEST LEADS] PROBABLE INFERIOR MYOCARDIAL INFARCTION , OF INDETERMINATE AGE [35 ms Q WAVE IN II/aVF] Compared to ECG 08/24/2021 17:01:23 First degree AV block no longer present Myocardial infarct finding still present Electronically Signed On 08-26-2021 7:36:14 MORTGAGE UNDERWRITER by Marlee Olmos M.D. [id number]
--- NOTE | 2021-08-24 15:29 | W.ED.WEAKNES ---
Documented by User: JN Hoover 08/24/21 17:47 HPI - Weakness General: Chief complaint: Weakness Stated complaint: GENERAL WEAKNESS Time Seen by Provider: 08/24/21 15:15 History of Present Illness: HPI Narrative: Patient is a 56-year-old female comes to the ED via EMS with generalized weakness and syncopal episode. Past medical history of COPD, type 2 diabetes, hypertension and CAD. Patient said that she had a cardiac stent placed last TuesdayAug.21. Since surgery she reports a little bit of generalized weakness. Today she was sitting in her chair and had a syncopal episode. It was witnessed by her son and lasted for approximately a minute. She denies any symptoms leading up to syncopal episode. Here in the ED she does admit to having increased shortness of breath but denies any chest pain. She has not done any of her breathing treatments today. Patient has 2 L of oxygen that she uses at home. Associated symptoms: Reports syncope; Denies chest pain, chills, dysuria, fever(s), headache(s), nausea or vomiting Review of Systems Const: Reports: fatigue (generalized weakness); Denies: fever(s) or chills Eyes: Denies: change in vision or eye discomfort ENMT: Denies: throat pain, odynophagia, nasal discharge or nasal congestion Card: Reports: syncope; Denies: chest pain, palpitations, edema, swelling of feet/ankles, dyspnea on exertion or orthopnea Resp: Reports: dyspnea; Denies: productive cough or non-productive cough GI: Denies: abdominal pain, nausea, vomiting, diarrhea, constipation or hematochezia : Denies: flank pain, dysuria or hematuria Musc: Denies: neck pain, back pain or extremity swelling Skin/Breast: Denies: rash or new lesions Neuro: Denies: headache(s), numbness in extremities or weakness in extremities PFS ED PFSH: Medical History (Updated 08/24/21 @ 20:28 by Marlee Olmos MD) (HFpEF) heart failure with preserved ejection fraction Acute exacerbation of CHF (congestive heart failure) Anemia Candidiasis of vagina Chest pain, midsternal Chronic knee pain Chronic left-sided low back pain Chronic obstructive pulmonary disease, unspecified Chronic pain of left knee Compression fracture of L2 lumbar vertebra COPD (chronic obstructive pulmonary disease) Coronary artery disease due to type 2 diabetes mellitus Current every day smoker CVA (cerebral vascular accident) Diabetes type 2, uncontrolled Dyslipidemia Dyspnea Elevated troponin Encounter for long-term opiate analgesic use Essential hypertension Exposure to COVID-19 virus Fibromyalgia, primary History of CVA (cerebrovascular accident) History of hypoglycemic coma Hyperlipidemia, mixed Insomnia Intervertebral disc disorder of lumbar region with myelopathy Leukocytosis Low back pain radiating to both legs Lumbosacral spondylosis without myelopathy Neuropathy NSTEMI (non-ST elevated myocardial infarction) Thought to be secondary to plaque rupture. Angiogram July 04 no flow-limiting lesions, or restenosis of previous stent from April 2020 Obesity (BMI 35.0-39.9 without comorbidity) Opioid contract exists Osteoarthritis of left knee Osteoarthritis of spine at multiple levels Pericardial effusion Peripheral sensory neuropathy due to type 2 diabetes mellitus Pneumonia Pressure ulcer Prosthetic joint infection Right hip pain Septic arthritis of knee, left Type 2 diabetes mellitus with diabetic autonomic (poly)neuropathy Unstable angina Vitamin D deficiency Surgical History History of arthroscopic surgery of elbow BILATERAL History of coronary angiogram Angiogram April 2020 with 90% circumflex lesion, drug-eluting stent placed by Dr. Jerome S/p bilateral carpal tunnel release S/P hysterectomy S/P knee surgery RIGHT S/P lumbar fusion DR. Shreya ZAYAS IN [place], [place] L4-L5, L5-S1 Status post left knee replacement Status post lumbar laminectomy Family History Other CAD (coronary artery disease) Cancer Diabetes Social History Second hand smoke exposure: Yes Smoking risk assessment/counseling performed?: Yes Alcohol intake: former Desire information about alcohol rehabilitation?: No Counseling given: No Desire information about substance/drug rehabilitation?: No Counseling given: No Caregiver/support person: No Lives independently: Yes Household members: family and other Details: son Housing: Manufactured/Mobile home Marital status: Unknown Marital status details: She and son state she is not service: No Current occupational status: unemployed Pets and animals: Yes History of recent travel: No Current gender identity: Female Physical Exam Const: COMMON NORMALS: patient oriented x3 and alert GENERAL APPEARANCE: cooperative and comfortable HENMT: COMMON NORMALS: normocephalic HEAD & SCALP: normocephalic MOUTH: moist mucous membranes abnormal Details: parched THROAT: posterior oropharynx normal and uvula midline Neck/C-Spine: COMMON NORMALS: supple GENERAL: Yes normal visual inspection Resp: COMMON NORMALS: normal respiratory effort, No retractions and No use of accessory muscles AUSCULTATION: wheezes expiratory wheezes and throughout Cardio: COMMON NORMALS: regular rate, regular rhythm, S1 normal heart sound present, S2 normal heart sound present, No gallops present (Cardio), No clicks present (Cardio), No murmurs present (Cardio) and Peripheral pulses 2+ throughout RATE: regular rate RHYTHM: regular rhythm HEART SOUNDS: S1 normal heart sound present and S2 normal heart sound present PERIPHERAL PULSES: Peripheral pulses 2+ throughout GI: COMMON NORMALS: Normal to inspection, nondistended, normoactive bowel sounds present, Soft to palpation, non-tender and no masses PALPATION: Yes Soft to palpation : COMMON NORMALS: Yes no CVA tenderness BLADDER/KIDNEY EXAM: Yes no CVA tenderness Back/Pelvis: COMMON NORMALS: no CVA tenderness Extremity: GENERAL: Yes edema (Bilateral 2+ pitting edema in lower extremities.) Neuro: COMMON NORMALS: patient oriented x3 and moves all extremities SENSORIUM/ORIENTATION: Yes alert Skin: GENERAL SKIN EXAM: dry skin Course Vital Signs: Vital signs: Vital Signs Temperature 98.6 F 08/24/21 16:01 Pulse Rate 86 08/24/21 17:10 Respiratory Rate 23 H 08/24/21 17:10 Blood Pressure 109/62 08/24/21 17:17 Pulse Oximetry 96 08/24/21 17:10 MDM - Weakness MDM Narrative: Medical decision making narrative: I performed the initial history, physical exam and lab work-up for patient. Patient had a blood pressure listed at 81/60, but I think this was a misread. The other blood pressures patient has had here in the ED 128/83 and 109/62. Pulse 86, respirations 23, temp 98.6 and O2 sat 96% to 1/2 L via nasal cannula. Patient's head CT came back nonacute and chest x-ray possible fluid overload or pneumonitis. All other labs are pending. I did order patient DuoNeb breathing treatment. At the end of my shift I discussed patient case with Dr. Calle. I transferred care over to Dr. Calle for further evaluation. Lab Data: Labs: Lab Results 08/24/21 08/24/21 08/24/21 17:09 17:09 17:09 WBC 18.6 10^3/uL H 10 ^3/uL (4.0-10.0) RBC 4.16 10^6/uL 10^6 /uL (4.1-5.3) Hgb 10.7 g/dL L g/dL (11.5-15.3) Hct 37.1 % % (37.0-47.0) MCV 89.2 fl fl (81-99) MCH 25.7 pg L pg (28.0-34.0) MCHC 28.8 g/dL L g/dL (30.0-36.0) RDW 16.7 % H % (12.1-15.1) Plt Count 449 10^3/cmm H 10 ^3/cmm (130-400) MPV 9.3 fL fL (7.4-10.4) Neut % (Auto) 58.8 % % Lymph % (Auto) 21.2 % % Perkins % (Auto) 7.8 % % Eos % (Auto) 10.6 % % Baso % (Auto) 0.6 % % Neut # (Auto) 10.92 10^3/uL H 1 0^3/uL (1.8-7.7) Lymph # (Auto) 3.9 10^3/uL 10^3/ uL (0.8-4.8) Perkins # (Auto) 1.5 10^3/uL H 10^ 3/uL (0.2-0.9) Eos # (Auto) 2.0 10^3/uL H 10^ 3/uL (0.0-0.8) Baso # (Auto) 0.1 10^3/uL 10^3/ uL (0.0-0.1) Nucleated RBC % (a uto) 0 % % Nucleated RBCs # 0.0 /100WBC /100W BC PT INR APTT D-Dimer Specimen Type Sample Site ABG pH ABG pCO2 ABG pO2 ABG HCO3 ABG O2 Saturation ABG Base Excess Freddy Test A-a O2 Gradient Hematocrit Hgb O2 Saturation Carboxyhemoglobin Methemoglobin Total Hemoglobin Ionized Calcium O2 Delivery Device O2 Liters/Min Compensation Agent ID Sodium 130 mmol/L L mmol /L (136-145) Potassium 4.8 mmol/L mmol/L (3.5-5.1) Chloride 97 mmol/L L mmol/ L (98-107) Carbon Dioxide 17 mmol/L L mmol/ L (22-29) Anion Gap 20.8 H (5-19) BUN 14 mg/dL mg/dL (6-20) Creatinine 1.0 mg/dL H mg/dL (0.5-0.9) GFR Calculation 57.8 mL/min L mL/ min (90-130) Glucose 193 mg/dL H mg/dL (65-115) Calculated Osmolal ity 276 mOsm/kg L mOs m/kg (285-295) Lactic Acid Calcium 8.6 mg/dL mg/dL (8.5-10.5) Total Bilirubin 0.2 mg/dL mg/dL (0.15-1.2) AST 22 U/L U/L (0-32) ALT 12 U/L U/L (0-33) Alkaline Phosphata se 92 IU/L IU/L (35-105) Troponin T Baselin e 137 ng/L H* ng/L (0-10) Troponin T 120 Min [place] Delta Troponin T NT-Pro-B Natriuret Pep 356 pg/mL H pg/mL (0-125) Total Protein 6.4 g/dL L g/dL (6.6-8.7) Albumin 3.0 g/dL L g/dL (3.5-5.2) Globulin 3.4 g/dL g/dL (1.3-4.6) Urine Color Urine Appearance Urine pH Ur Specific Gravit y Urine Protein Urine Glucose (UA) Urine Ketones Urine Blood Urine Nitrate Urine Bilirubin Urine Urobilinogen Ur Leukocyte Maria Elena ase Urine RBC Urine WBC Ur Squamous Epith Cells Amorphous Sediment Urine Bacteria Urine Yeast 08/24/21 08/24/21 08/24/21 17:19 18:33 20:17 WBC RBC Hgb Hct MCV MCH MCHC RDW Plt Count MPV Neut % (Auto) Lymph % (Auto) Perkins % (Auto) Eos % (Auto) Baso % (Auto) Neut # (Auto) Lymph # (Auto) Perkins # (Auto) Eos # (Auto) Baso # (Auto) Nucleated RBC % (a uto) Nucleated RBCs # PT INR APTT D-Dimer Specimen Type Arterial Sample Site Radial, left ABG pH 7.35 (7.35-7.45) ABG pCO2 45.5 mmHg H mmHg (35-45) ABG pO2 59.8 mmHg L mmHg (80.0-100.0) ABG HCO3 25.1 mmol/L mmol/ L (22-26) ABG O2 Saturation 91.8 ABG Base Excess -0.8 mmol/L mmol/ L (-2.0-2.0) Freddy Test Pos A-a O2 Gradient 4.5 mmHg L mmHg (5-10) Hematocrit 33.2 % L % (37-47) Hgb O2 Saturation 86.3 % L % (95-100) Carboxyhemoglobin 5.4 %THgb %THgb (0.4-20.1) Methemoglobin 0.7 % % (0.4-1.5) Total Hemoglobin 10.8 g/dL L g/dL (12-16) Ionized Calcium 1.2 mmol/L mmol/L (1.1-1.4) O2 Delivery Device Nc O2 Liters/Min 2.5 % % Compensation Agent ID Gd Sodium 133.0 mmol/L mmol /L (131-143) Potassium 4.4 mmol/L mmol/L (3.5-5.0) Chloride Carbon Dioxide Anion Gap BUN Creatinine GFR Calculation Glucose 211.0 mg/dL H mg/ dL (70-115) Calculated Osmolal ity Lactic Acid Calcium Total Bilirubin AST ALT Alkaline Phosphata se Troponin T Baselin e Troponin T 120 Min [place] 130.1 ng/L H ng/L (0-10) Delta Troponin T -6.9 ABS# L ABS# (0-10) NT-Pro-B Natriuret Pep Total Protein Albumin Globulin Urine Color Sravanthi (Yellow) Urine Appearance Clear (CLEAR) Urine pH 5 (5-7) Ur Specific Gravit y 1.020 (1.005-1.030) Urine Protein Trace (Negative) Urine Glucose (UA) Norm (Normal) Urine Ketones 1+ H (Negative) Urine Blood Neg (Negative) Urine Nitrate Negative (Negative) Urine Bilirubin 1+ H (Negative) Urine Urobilinogen Norm mg/dL mg/dL (Negative) Ur Leukocyte Maria Elena ase 2+ H (Negative) Urine RBC 0-4 /hpf H /hpf (0-2) Urine WBC >100 /hpf H /hpf (0-5) Ur Squamous Epith Cells 0-4 /hpf H /hpf (0-5) Amorphous Sediment Not Reportable Urine Bacteria 1+ /hpf H /hpf (NONE) Urine Yeast 3+ /hpf H /hpf 08/24/21 08/24/21 20:17 20:17 WBC RBC Hgb Hct MCV MCH MCHC RDW Plt Count MPV Neut % (Auto) Lymph % (Auto) Perkins % (Auto) Eos % (Auto) Baso % (Auto) Neut # (Auto) Lymph # (Auto) Perkins # (Auto) Eos # (Auto) Baso # (Auto) Nucleated RBC % (a uto) Nucleated RBCs # PT 13.20 SECONDS SEC ONDS (12.1-14.9) INR 0.97 (0.8-1.2) APTT 38.8 SECONDS H SE CONDS (23.9-36.7) D-Dimer 1.43 ug/mIFEU H u g/mIFEU (0-0.59) Specimen Type Sample Site ABG pH ABG pCO2 ABG pO2 ABG HCO3 ABG O2 Saturation ABG Base Excess Freddy Test A-a O2 Gradient Hematocrit Hgb O2 Saturation Carboxyhemoglobin Methemoglobin Total Hemoglobin Ionized Calcium O2 Delivery Device O2 Liters/Min Compensation Agent ID Sodium Potassium Chloride Carbon Dioxide Anion Gap BUN Creatinine GFR Calculation Glucose Calculated Osmolal ity Lactic Acid 1.3 mmol/L mmol/L (0.5-2.2) Calcium Total Bilirubin AST ALT Alkaline Phosphata se Troponin T Baselin e Troponin T 120 Min [place] Delta Troponin T NT-Pro-B Natriuret Pep Total Protein Albumin Globulin Urine Color Urine Appearance Urine pH Ur Specific Gravit y Urine Protein Urine Glucose (UA) Urine Ketones Urine Blood Urine Nitrate Urine Bilirubin Urine Urobilinogen Ur Leukocyte Maria Elena ase Urine RBC Urine WBC Ur Squamous Epith Cells Amorphous Sediment Urine Bacteria Urine Yeast Imaging Data^: CXR: Attestation: I personally reviewed and interpreted this imaging study as follows: Radiologist's impression: [facility] [address] [place] [address] XRay Report Signed Patient: Mayra Ascencio Unit #: [id number] : [id number] Age/Sex: 56 / F ADM Date: 08/24/21 Loc: ER Room/Bed: Attending Dr: Ordering Provider/Ordering MD: Fernando Yates Date of Service: 08/24/21 Procedure(s): XR chest 1V portable 31596 Accession Number(s): [id number] Report Number: [id number] WS: [id number] PORTABLE CHEST HISTORY: weakness COMPARISON: 05/19/2021 Lung volumes are decreased. Very mild haziness and interstitial thickening throughout both lungs similar to the prior study. No pleural effusion or pneumothorax. Cardiac size: Normal. Mediastinum/Aorta: Normal mediastinum. No osseous abnormality seen. XR/XR chest 1V portable [id number] IMPRESSION: Mild interstitial thickening. May be due to small amount of fluid overload or pneumonitis. Similar to the prior study. Dictated By: Radha Kim DO Signed By: Radha Kim DO Signed Date/Time: 08/24/211536 DD/ 153 CT Head: Attestation: I personally reviewed and interpreted this imaging study as follows: Radiologist's impression: [address] [address] [address] Scan Report Signed Patient: Mayra Ascencio Unit #: [id number] : 1965 Age/Sex: 56 / F ADM Date: 08/24/21 Loc: ER Room/Bed: Attending Dr: Ordering Provider/Ordering MD: Fernando Yates Date of Service: 08/24/21 Procedure(s): CT head wo con* [id number] Accession Number(s): [id number] Report Number: [id number] WS: [id number] CT HEAD NONCONTRAST HISTORY: syncopal episode TECHNIQUE: Contiguous axial imaging performed through the brain in 2.5 mm imaging. Bone and soft tissue windows. Sagittal and coronal reformats reviewed. All CT scans at [facility] use at least one of these dose optimization techniques: automated exposure control; mA and/or kV adjustment per patient size (includes targeted exams where dose is matched to clinical indication); or iterative reconstruction. DLP: 1879.95 mGy.cm COMPARISON: 09/29/2020 No acute intracranial hemorrhage, midline shift or mass effect. Mild atrophy similar to the prior study is more than expected for the patient's age. No prior infarct. There is a small lacunar perivascular space in the posterior superior RIGHT frontal lobe. Ventricles: Normal size with no hydrocephalus. Paranasal sinuses: As visualized are clear. Mastoid air cells: Well pneumatized. Calvarium and scalp: Skull is intact with no soft tissue edema or swelling. CT/CT head wo con* [id number] IMPRESSION: 1. No acute intracranial hemorrhage. 2. Mild cerebral atrophy, slightly more than expected for age. Dictated By: Radha Kim DO Signed By: Radha Kim DO Signed Date/Time: 08/24/21 1601 DD/ 1558 EKG Data^: EKG 1: Attestation: I personally reviewed and interpreted this EKG as follows: EKG interpretation date: 08/24/21 Interpretation: Sinus rhythm with first-degree AV heart block. Rate 82 bpm, no ST segment elevation or depression seen. Discharge Plan Discharge Prescriptions: No Action hydromorphone 4 mg tablet 4 mg PO QID PRN (Reason: pain) 30 Days Qty: 120 RF: 0 hydromorphone 4 mg tablet 4 mg PO QID 30 Days Qty: 120 RF: 0 cyclobenzaprine 10 mg tablet 10 mg PO TID PRN (Reason: muscle spasm) 30 Days Qty: 90 RF: 1 pregabalin [Lyrica] 150 mg capsule 150 mg PO BID@0800,1800 30 Days Qty: 60 RF: 1 ergocalciferol (vitamin D2) 1,250 mcg (50,000 unit) capsule 1,250 mcg PO Q7D Qty: 4 RF: 2 (DME) pen needle, diabetic [Comfort EZ Pen Pearl] 31 gauge x 5/16 needle See Rx Instructions .Route Qty: 100 RF: 6 Levemir FlexTouch U-100 Insuln 100 unit/mL (3 mL) insulin pen 10 unit SUBCUT DAILY@08 Qty: 15 RF: 2 Repatha SureClick 140 mg/mL pen injector 140 mg SUBCUT .[id number] Qty: 2 RF: 5 albuterol sulfate [Ventolin HFA] 90 mcg/actuation HFA aerosol inhaler 2 puff INHALATION QID PRN (Reason: shortness of breath or wheezing) 30 Days Qty: 6.7 RF: 2 nitroglycerin 0.4 mg tablet, sublingual See Rx Instructions .ROUTE .COMPLEX Qty: 25 RF: 3 insulin aspart U-100 [Novolog Flexpen U-100 Insulin] 100 unit/mL (3 mL) insulin pen 5 unit SUBCUT TID Qty: 15 RF: 1 oxybutynin chloride 5 mg tablet extended release 24hr 5 mg PO DAILY Qty: 30 RF: 2 levofloxacin 750 mg tablet 750 mg PO DAILY Qty: 7 RF: 0 nitrofurantoin monohyd/m-cryst 100 mg capsule 100 mg PO Q12H RF: 0 furosemide [Lasix] 40 mg tablet 40 mg PO BID@0800,2100 PRN (Reason: Edema) Qty: 60 RF: 12 midodrine 5 mg tablet 5 mg PO BID@0800,2100 Qty: 60 RF: 5 quetiapine 100 mg tablet 100 mg PO .qhs Qty: 30 RF: 2 atorvastatin 80 mg tablet 80 mg PO DAILY Qty: 30 RF: 2 Brilinta 90 mg tablet 90 mg PO BID@, Qty: 180 RF: 1 duloxetine 60 mg capsule, delayed rel sprinkle 60 mg PO DAILY@08 30 Days Qty: 30 RF: 0 losartan 50 mg tablet 50 mg PO DAILY@0800 Qty: 30 RF: 6 isosorbide mononitrate 60 mg tablet extended release 24 hr 60 mg PO BID@,21 Qty: 180 RF: 0 (DME) pen needle, diabetic [Comfort EZ Pen Pearl] 32 gauge x 5/32 needle See Rx Instructions .Route Qty: 100 RF: 2 Adult Aspirin Regimen 81 mg tablet,delayed release (DR/EC) 81 mg PO DAILY Qty: 30 RF: 4 acetaminophen 325 mg Tablet 650 mg PO Q6H PRN (Reason: Mild/Mod Pain Or Temp >/= 101) Qty: 30 RF: 0 Sign Out Sign Out Data: Patient Sign Out occurred on 08/24/21 at 17:32. Patient's care was discussed, and care was transferred from to Luis Manuel Calle MD. Coding Level of Care Code ED Education Specialist for Chg Fwd Exam Comprehensive Documented by User: Luis Manuel Calle MD 08/24/21 22:22 HPI - Weakness General: Chief complaint: Weakness Stated complaint: GENERAL WEAKNESS Time Seen by Provider: 08/24/21 15:15 PFSH ED PFSH: Medical History (Updated 08/24/21 @ 20:28 by Marlee Olmos MD) (HFpEF) heart failure with preserved ejection fraction Acute exacerbation of CHF (congestive heart failure) Anemia Candidiasis of vagina Chest pain, midsternal Chronic knee pain Chronic left-sided low back pain Chronic obstructive pulmonary disease, unspecified Chronic pain of left knee Compression fracture of L2 lumbar vertebra COPD (chronic obstructive pulmonary disease) Coronary artery disease due to type 2 diabetes mellitus Current every day smoker CVA (cerebral vascular accident) Diabetes type 2, uncontrolled Dyslipidemia Dyspnea Elevated troponin Encounter for long-term opiate analgesic use Essential hypertension Exposure to COVID-19 virus Fibromyalgia, primary History of CVA (cerebrovascular accident) History of hypoglycemic coma Hyperlipidemia, mixed Insomnia Intervertebral disc disorder of lumbar region with myelopathy Leukocytosis Low back pain radiating to both legs Lumbosacral spondylosis without myelopathy Neuropathy NSTEMI (non-ST elevated myocardial infarction) Thought to be secondary to plaque rupture. Angiogram July 04 no flow-limiting lesions, or restenosis of previous stent from April 2020 Obesity (BMI 35.0-39.9 without comorbidity) Opioid contract exists Osteoarthritis of left knee Osteoarthritis of spine at multiple levels Pericardial effusion Peripheral sensory neuropathy due to type 2 diabetes mellitus Pneumonia Pressure ulcer Prosthetic joint infection Right hip pain Septic arthritis of knee, left Type 2 diabetes mellitus with diabetic autonomic (poly)neuropathy Unstable angina Vitamin D deficiency Surgical History History of arthroscopic surgery of elbow BILATERAL History of coronary angiogram Angiogram April 2020 with 90% circumflex lesion, drug-eluting stent placed by Dr. Jerome S/p bilateral carpal tunnel release S/P hysterectomy S/P knee surgery RIGHT S/P lumbar fusion DR. Shreya ZAYAS IN [place], [place] L4-L5, L5-S1 Status post left knee replacement Status post lumbar laminectomy Family History Other CAD (coronary artery disease) Cancer Diabetes Social History Second hand smoke exposure: Yes Smoking risk assessment/counseling performed?: Yes Alcohol intake: former Desire information about alcohol rehabilitation?: No Counseling given: No Desire information about substance/drug rehabilitation?: No Counseling given: No Caregiver/support person: No Lives independently: Yes Household members: family and other Details: son Housing: Manufactured/Mobile home Marital status: Unknown Marital status details: She and son state she is not service: No Current occupational status: unemployed Pets and animals: Yes History of recent travel: No Current gender identity: Female Course Vital Signs: Vital signs: Vital Signs Temperature 98.6 F 08/24/21 16:01 Pulse Rate 86 08/24/21 17:10 Respiratory Rate 23 H 08/24/21 17:10 Blood Pressure 109/62 08/24/21 17:17 Pulse Oximetry 96 08/24/21 17:10 MDM - Weakness MDM Narrative: Medical decision making narrative: Patient was signed out to me by midlevel provider. Briefly, she is a 56-year-old female who presented with syncopal episode and shortness of breath. Has wheezing on exam with concern for COPD exacerbation. Briefly hypoxic upon arrival but improved with Solu-Medrol and albuterol. She is hemodynamically stable afebrile nontoxic-appearing. Does have elevated white count 18 and urinalysis concerning for UTI. Sepsis order set initiated. In addition there is troponin elevation to 130 but repeat is not significantly changing. Discussed with cardiology and at this time they do not suspect stent thrombosis as she recently had stent placement a week and half ago. Do recommend starting aspirin and heparin which were ordered. D-dimer is elevated but CT does not reveal signs of PE. Remainder of lab work and imaging reviewed. Discussed with hospitalist and they agreed patient would benefit from admission. Patient admitted in stable condition. Further evaluation management per hospitalist team. Lab Data: Labs: Lab Results 08/24/21 08/24/21 08/24/21 17:09 17:09 17:09 WBC 18.6 10^3/uL H 10 ^3/uL (4.0-10.0) RBC 4.16 10^6/uL 10^6 /uL (4.1-5.3) Hgb 10.7 g/dL L g/dL (11.5-15.3) Hct 37.1 % % (37.0-47.0) MCV 89.2 fl fl (81-99) MCH 25.7 pg L pg (28.0-34.0) MCHC 28.8 g/dL L g/dL (30.0-36.0) RDW 16.7 % H % (12.1-15.1) Plt Count 449 10^3/cmm H 10 ^3/cmm (130-400) MPV 9.3 fL fL (7.4-10.4) Neut % (Auto) 58.8 % % Lymph % (Auto) 21.2 % % Perkins % (Auto) 7.8 % % Eos % (Auto) 10.6 % % Baso % (Auto) 0.6 % % Neut # (Auto) 10.92 10^3/uL H 1 0^3/uL (1.8-7.7) Lymph # (Auto) 3.9 10^3/uL 10^3/ uL (0.8-4.8) Perkins # (Auto) 1.5 10^3/uL H 10^ 3/uL (0.2-0.9) Eos # (Auto) 2.0 10^3/uL H 10^ 3/uL (0.0-0.8) Baso # (Auto) 0.1 10^3/uL 10^3/ uL (0.0-0.1) Nucleated RBC % (a uto) 0 % % Nucleated RBCs # 0.0 /100WBC /100W BC PT INR APTT D-Dimer Specimen Type Sample Site ABG pH ABG pCO2 ABG pO2 ABG HCO3 ABG O2 Saturation ABG Base Excess Freddy Test A-a O2 Gradient Hematocrit Hgb O2 Saturation Carboxyhemoglobin Methemoglobin Total Hemoglobin Ionized Calcium O2 Delivery Device O2 Liters/Min Compensation Agent ID Sodium 130 mmol/L L mmol /L (136-145) Potassium 4.8 mmol/L mmol/L (3.5-5.1) Chloride 97 mmol/L L mmol/ L (98-107) Carbon Dioxide 17 mmol/L L mmol/ L (22-29) Anion Gap 20.8 H (5-19) BUN 14 mg/dL mg/dL (6-20) Creatinine 1.0 mg/dL H mg/dL (0.5-0.9) GFR Calculation 57.8 mL/min L mL/ min (90-130) Glucose 193 mg/dL H mg/dL (65-115) Calculated Osmolal ity 276 mOsm/kg L mOs m/kg (285-295) Lactic Acid Calcium 8.6 mg/dL mg/dL (8.5-10.5) Total Bilirubin 0.2 mg/dL mg/dL (0.15-1.2) AST 22 U/L U/L (0-32) ALT 12 U/L U/L (0-33) Alkaline Phosphata se 92 IU/L IU/L (35-105) Troponin T Baselin e 137 ng/L H* ng/L (0-10) Troponin T 120 Min [place] Delta Troponin T NT-Pro-B Natriuret Pep 356 pg/mL H pg/mL (0-125) Total Protein 6.4 g/dL L g/dL (6.6-8.7) Albumin 3.0 g/dL L g/dL (3.5-5.2) Globulin 3.4 g/dL g/dL (1.3-4.6) Urine Color Urine Appearance Urine pH Ur Specific Gravit y Urine Protein Urine Glucose (UA) Urine Ketones Urine Blood Urine Nitrate Urine Bilirubin Urine Urobilinogen Ur Leukocyte Maria Elena ase Urine RBC Urine WBC Ur Squamous Epith Cells Amorphous Sediment Urine Bacteria Urine Yeast 08/24/21 08/24/21 08/24/21 17:19 18:33 20:17 WBC RBC Hgb Hct MCV MCH MCHC RDW Plt Count MPV Neut % (Auto) Lymph % (Auto) Perkins % (Auto) Eos % (Auto) Baso % (Auto) Neut # (Auto) Lymph # (Auto) Perkins # (Auto) Eos # (Auto) Baso # (Auto) Nucleated RBC % (a uto) Nucleated RBCs # PT INR APTT D-Dimer Specimen Type Arterial Sample Site Radial, left ABG pH 7.35 (7.35-7.45) ABG pCO2 45.5 mmHg H mmHg (35-45) ABG pO2 59.8 mmHg L mmHg (80.0-100.0) ABG HCO3 25.1 mmol/L mmol/ L (22-26) ABG O2 Saturation 91.8 ABG Base Excess -0.8 mmol/L mmol/ L (-2.0-2.0) Freddy Test Pos A-a O2 Gradient 4.5 mmHg L mmHg (5-10) Hematocrit 33.2 % L % (37-47) Hgb O2 Saturation 86.3 % L % (95-100) Carboxyhemoglobin 5.4 %THgb %THgb (0.4-20.1) Methemoglobin 0.7 % % (0.4-1.5) Total Hemoglobin 10.8 g/dL L g/dL (12-16) Ionized Calcium 1.2 mmol/L mmol/L (1.1-1.4) O2 Delivery Device Nc O2 Liters/Min 2.5 % % Compensation Agent ID Gd Sodium 133.0 mmol/L mmol /L (131-143) Potassium 4.4 mmol/L mmol/L (3.5-5.0) Chloride Carbon Dioxide Anion Gap BUN Creatinine GFR Calculation Glucose 211.0 mg/dL H mg/ dL (70-115) Calculated Osmolal ity Lactic Acid Calcium Total Bilirubin AST ALT Alkaline Phosphata se Troponin T Baselin e Troponin T 120 Min [place] 130.1 ng/L H ng/L (0-10) Delta Troponin T -6.9 ABS# L ABS# (0-10) NT-Pro-B Natriuret Pep Total Protein Albumin Globulin Urine Color Sravanthi (Yellow) Urine Appearance Clear (CLEAR) Urine pH 5 (5-7) Ur Specific Gravit y 1.020 (1.005-1.030) Urine Protein Trace (Negative) Urine Glucose (UA) Norm (Normal) Urine Ketones 1+ H (Negative) Urine Blood Neg (Negative) Urine Nitrate Negative (Negative) Urine Bilirubin 1+ H (Negative) Urine Urobilinogen Norm mg/dL mg/dL (Negative) Ur Leukocyte Maria Elena ase 2+ H (Negative) Urine RBC 0-4 /hpf H /hpf (0-2) Urine WBC >100 /hpf H /hpf (0-5) Ur Squamous Epith Cells 0-4 /hpf H /hpf (0-5) Amorphous Sediment Not Reportable Urine Bacteria 1+ /hpf H /hpf (NONE) Urine Yeast 3+ /hpf H /hpf 08/24/21 08/24/21 20:17 20:17 WBC RBC Hgb Hct MCV MCH MCHC RDW Plt Count MPV Neut % (Auto) Lymph % (Auto) Perkins % (Auto) Eos % (Auto) Baso % (Auto) Neut # (Auto) Lymph # (Auto) Perkins # (Auto) Eos # (Auto) Baso # (Auto) Nucleated RBC % (a uto) Nucleated RBCs # PT 13.20 SECONDS SEC ONDS (12.1-14.9) INR 0.97 (0.8-1.2) APTT 38.8 SECONDS H SE CONDS (23.9-36.7) D-Dimer 1.43 ug/mIFEU H u g/mIFEU (0-0.59) Specimen Type Sample Site ABG pH ABG pCO2 ABG pO2 ABG HCO3 ABG O2 Saturation ABG Base Excess Freddy Test A-a O2 Gradient Hematocrit Hgb O2 Saturation Carboxyhemoglobin Methemoglobin Total Hemoglobin Ionized Calcium O2 Delivery Device O2 Liters/Min Compensation Agent ID Sodium Potassium Chloride Carbon Dioxide Anion Gap BUN Creatinine GFR Calculation Glucose Calculated Osmolal ity Lactic Acid 1.3 mmol/L mmol/L (0.5-2.2) Calcium Total Bilirubin AST ALT Alkaline Phosphata se Troponin T Baselin e Troponin T 120 Min [place] Delta Troponin T NT-Pro-B Natriuret Pep Total Protein Albumin Globulin Urine Color Urine Appearance Urine pH Ur Specific Gravit y Urine Protein Urine Glucose (UA) Urine Ketones Urine Blood Urine Nitrate Urine Bilirubin Urine Urobilinogen Ur Leukocyte Maria Elena ase Urine RBC Urine WBC Ur Squamous Epith Cells Amorphous Sediment Urine Bacteria Urine Yeast Discharge Plan Discharge Prescriptions: No Action hydromorphone 4 mg tablet 4 mg PO QID PRN (Reason: pain) 30 Days Qty: 120 RF: 0 hydromorphone 4 mg tablet 4 mg PO QID 30 Days Qty: 120 RF: 0 cyclobenzaprine 10 mg tablet 10 mg PO TID PRN (Reason: muscle spasm) 30 Days Qty: 90 RF: 1 pregabalin [Lyrica] 150 mg capsule 150 mg PO BID@0800,1800 30 Days Qty: 60 RF: 1 ergocalciferol (vitamin D2) 1,250 mcg (50,000 unit) capsule 1,250 mcg PO Q7D Qty: 4 RF: 2 (DME) pen needle, diabetic [Comfort EZ Pen Pearl] 31 gauge x 5/16 needle See Rx Instructions .Route Qty: 100 RF: 6 Levemir FlexTouch U-100 Insuln 100 unit/mL (3 mL) insulin pen 10 unit SUBCUT DAILY@08 Qty: 15 RF: 2 Repatha SureClick 140 mg/mL pen injector 140 mg SUBCUT .d74ffiz Qty: 2 RF: 5 albuterol sulfate [Ventolin HFA] 90 mcg/actuation HFA aerosol inhaler 2 puff INHALATION QID PRN (Reason: shortness of breath or wheezing) 30 Days Qty: 6.7 RF: 2 nitroglycerin 0.4 mg tablet, sublingual See Rx Instructions .ROUTE .COMPLEX Qty: 25 RF: 3 insulin aspart U-100 [Novolog Flexpen U-100 Insulin] 100 unit/mL (3 mL) insulin pen 5 unit SUBCUT TID Qty: 15 RF: 1 oxybutynin chloride 5 mg tablet extended release 24hr 5 mg PO DAILY Qty: 30 RF: 2 levofloxacin 750 mg tablet 750 mg PO DAILY Qty: 7 RF: 0 nitrofurantoin monohyd/m-cryst 100 mg capsule 100 mg PO Q12H RF: 0 furosemide [Lasix] 40 mg tablet 40 mg PO BID@0800,2100 PRN (Reason: Edema) Qty: 60 RF: 12 midodrine 5 mg tablet 5 mg PO BID@0800,2100 Qty: 60 RF: 5 quetiapine 100 mg tablet 100 mg PO .qhs Qty: 30 RF: 2 atorvastatin 80 mg tablet 80 mg PO DAILY Qty: 30 RF: 2 Brilinta 90 mg tablet 90 mg PO BID@08,21 Qty: 180 RF: 1 duloxetine 60 mg capsule, delayed rel sprinkle 60 mg PO DAILY@08 30 Days Qty: 30 RF: 0 losartan 50 mg tablet 50 mg PO DAILY@0800 Qty: 30 RF: 6 isosorbide mononitrate 60 mg tablet extended release 24 hr 60 mg PO BID@08,21 Qty: 180 RF: 0 (DME) pen needle, diabetic [Comfort EZ Pen Pearl] 32 gauge x 5/32 needle See Rx Instructions .Route Qty: 100 RF: 2 Adult Aspirin Regimen 81 mg tablet,delayed release (DR/EC) 81 mg PO DAILY Qty: 30 RF: 4 acetaminophen 325 mg Tablet 650 mg PO Q6H PRN (Reason: Mild/Mod Pain Or Temp >/= 101) Qty: 30 RF: 0 Sign Out Sign Out Data: Patient Sign Out occurred on 08/24/21 at 17:32. Patient's care was discussed, and care was transferred from to Luis Manuel Calle MD. Coding Level of Care Code ED Education Specialist for Chg Fwd Exam Comprehensive
--- NOTE | 2021-08-24 15:44 | CT_ITS ---
WS: [id number] CT HEAD NONCONTRAST HISTORY: syncopal episode TECHNIQUE: Contiguous axial imaging performed through the brain in 2.5 mm imaging. Bone and soft tiss ue windows. Sagittal and coronal reformats reviewed. All CT scans at [facility] use at least one of these dose optimization techniques: automated exposure control; mA and/or kV adjustment per pa tient size (includes targeted exams where dose is matched to clinical indication); or iterative recon struction. DLP: 1879.95 mGy.cm COMPARISON: 09/29/2020 No acute intracranial hemorrhage, midline shift or mass effect. Mild atrophy similar to the prior study is more than expected for the patient's age. No prior infarct . There is a small lacunar perivascular space in the posterior superior RIGHT frontal lobe. Ventricles: Normal size with no hydrocephalus. Paranasal sinuses: As visualized are clear. Mastoid air cells: Well pneumatized. Calvarium and scalp: Skull is intact with no soft tissue edema or swelling. CT/CT head wo con* [id number] IMPRESSION: 1. No acute intracranial hemorrhage. 2. Mild cerebral atrophy, slightly more than expected for age.
[2021-08-24 17:17] LABS: Basophils # 0.1 10^3/uL (0.0-0.1); Basophils % 0.6 %; Eosinophils % 10.6 %; Hematocrit 37.1 % (37.0-47.0); Hemoglobin 10.7 g/dL (11.5-15.3); Lymphocytes # 3.9 10^3/uL (0.8-4.8); Lymphocytes % 21.2 %; Mean Corpuscular HGB Conc 28.8 g/dL (30.0-36.0); Mean Corpuscular Hemoglobin 25.7 pg (28.0-34.0); Mean Corpuscular Volume 89.2 fl (81-99); Mean Platelet Volume 9.3 fL (7.4-10.4); Monocytes # 1.5 10^3/uL (0.2-0.9); Monocytes % 7.8 %; Neutrophils # 10.92 10^3/uL (1.8-7.7); Neutrophils % 58.8 %; Nucleated Red Blood Cells % 0 %; Platelet Count 449 10^3/cmm (130-400); Red Blood Count 4.16 10^6/uL (4.1-5.3); Red Cell Distribution Width 16.7 % (12.1-15.1); White Blood Count 18.6 10^3/uL (4.0-10.0)
--- NOTE | 2021-08-24 17:19 | ECG_ITS ---
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 Measurements Intervals [place] Rate: 86 P: 24 NC: 215 QRS: 31 QRSD: 113 T: 63 QT: 392 QTc: 470 Interpretive Statements SINUS RHYTHM WITH FIRST DEGREE AV BLOCK LOW QRS VOLTAGE IN PRECORDIAL LEADS [QRS DEFLECTION < 1.0 mV IN CHEST LEADS] POSSIBLE INFERIOR MYOCARDIAL INFARCTION , PROBABLY OLD [30 ms Q WAVE IN II/aVF] Compared to ECG 07/27/2021 20:40:34 First degree AV block now present Low QRS voltage now present Sinus tachycardia no longer present Myocardial infarct finding still present Electronically Signed On 08-26-2021 7:42:55 NAILER MACHINE by Marlee Olmos M.D. [id number]
[2021-08-24 17:33] LABS: ABG PCO2 45.5 mmHg (35-45); ABG PH Result 7.35 (7.35-7.45); Alveolar-Arterial Oxygen Gradi 4.5 mmHg (5-10); Arterial Blood Gas Hematocrit 33.2 % (37-47); Base Excess ABG -0.8 mmol/L (-2.0-2.0); Blood Gas Allen Test Pos; Blood Gas LPM 2.5 %; Blood Gas Operator Identificat GD; Blood Gas Sample Site Radial, left; Blood Gas Sample Type Arterial; Carboxyhemoglobin 5.4 %THgb (0.4-20.1); HCO3 ABG 25.1 mmol/L (22-26); HGB O2 Sat 86.3 % (95-100); Ionized Calcium Level - ABG 1.2 mmol/L (1.1-1.4); Methemoglobin 0.7 % (0.4-1.5); Oxygen Device NC; Oxygen Saturation ABG 91.8; PO2 ABG 59.8 mmHg (80.0-100.0); Potassium Level - ABG 4.4 mmol/L (3.5-5.0); Total Hemoglobin 10.8 g/dL (12-16)
[2021-08-24 17:49] LABS: Alanine Aminotransferase 12 U/L (0-33); Alkaline Phosphatase 92 IU/L (35-105); Anion Gap 20.8 (5-19); Aspartate Amino Transferase 22 U/L (0-32); Blood Urea Nitrogen 14 mg/dL (6-20); Calcium 8.6 mg/dL (8.5-10.5); Carbon Dioxide 17 mmol/L (22-29); Chloride 97 mmol/L (98-107); Globulin 3.4 g/dL (1.3-4.6); Glomerular Filtration Rate 57.8 mL/min (90-130); Glucose 193 mg/dL (65-115); NT Pro B Type Natriuretic Pept 356 pg/mL (0-125); Osmolality Calculated 276 mOsm/kg (285-295); Potassium 4.8 mmol/L (3.5-5.1); Sodium 130 mmol/L (136-145); Total Bilirubin 0.2 mg/dL (0.15-1.2); Total Protein 6.4 g/dL (6.6-8.7)
[2021-08-24 17:52] LABS: Troponin(5th) Baseline 137 ng/L (0-10)
[2021-08-24] MEDS: aspirin 81 mg Chew Tablet 324 MG PO (18:22)
[2021-08-24] MEDS: enoxaparin 100 mg/mL Syringe 90 MG SUBCUT (18:23)
--- NOTE | 2021-08-24 18:30 | PM.CONSULT ---
Providers/Reason For Consult Consulting Physician/Specialty*: Dr. Olmos, Cardiology Reason for Consult*: Elevated troponin, recent stent placement Primary Care Provider: KATHY Stewart History of Present Illness History of Present Illness Mayra Ascencio is a 56 year old female with past medical history of hypertension, hyperlipidemia, coronary artery disease, congestive heart failure, obesity, COPD on 2L of oxygen, chronic back and hip pain, diabetic neuropathy and insulin dependant diabetes mellitus. She underwent left heart cathetarization by Dr. Jerome for chest pain and abnormal stress test on 08/14/21. She was found to have mid LCx 90% stenotic lesion that was treated with balloon angioplasty followed by single drug-eluting stent. Her medications were adjusted for uncontrolled hypertension. She has h/o labile hypertension and is on antihypertensives as well as low dose midodrine. She had appointment with Dr. Jerome and sounds like Dr. Amaya today. She was found to be really weak and unsteady on her feet by family member. She had almost syncopal episode while sitting today witnessed by son who is also in ER with diarrhea. She is a poor historian. EMS was called for generalized weakness and syncopal episode. She tells me that she is having increased shortness of breath and probably some worsening of her leg swelling. She denies any chest pain and has not skipped any dose of ASA or Brillinta. Her BP was doing good until today when it was in mid range . She was unable to tell me any numbers. No fever but increased cough with some phlegm. No epi, hematochezia or hematemesis. Patient has 2 L of oxygen that she uses at home. Review of Systems General: Reports: 10 or more systems reviewed and unremarkable except in HPI and below Const: Reports: fatigue (generalized weakness); Denies: fever(s) or chills Eyes: Denies: change in vision or eye discomfort ENMT: Denies: throat pain, odynophagia, nasal discharge or nasal congestion Card: Reports: syncope; Denies: chest pain, palpitations, edema, swelling of feet/ankles, dyspnea on exertion or orthopnea Resp: Reports: dyspnea; Denies: productive cough or non-productive cough GI: Denies: abdominal pain, nausea, vomiting, diarrhea, constipation or hematochezia : Denies: flank pain, dysuria or hematuria Musc: Denies: neck pain, back pain or extremity swelling Skin/Breast: Denies: rash or new lesions Neuro: Denies: headache(s), numbness in extremities or weakness in extremities Meds/Allergies Home Medications and Allergies Home Medications Medication Instructions Recorded Confirmed Last Taken Type acetaminophen 650 mg PO Q6H PRN #30 tab 10/16/20 08/25/21 04/21/21 Rx furosemide 40 mg tablet 40 mg PO BID@0800,2100 PRN #60 tab 03/04/21 08/25/21 08/13/21 20:00 Rx albuterol sulfate 90 mcg/actuation 2 puff INHALATION QID PRN 30 Days 03/06/21 08/25/21 08/13/21 20:00 Rx aerosol inhaler #6.7 gm midodrine 5 mg tablet 5 mg PO BID@0800,2100 #60 tab 04/16/21 08/25/21 08/13/21 20:00 Rx quetiapine 100 mg tablet 100 mg PO .qhs #30 tab 05/25/21 08/25/21 08/13/21 20:00 Rx nitroglycerin 0.4 mg sublingual See Rx Instructions .ROUTE 06/05/21 08/25/21 Unknown Rx tablet .COMPLEX #25 tab atorvastatin 80 mg tablet 80 mg PO DAILY #30 tab 06/09/21 08/25/21 08/13/21 20:00 Rx ticagrelor 90 mg tablet 90 mg PO BID@ #180 tab 06/09/21 08/25/21 08/13/21 20:00 Rx duloxetine 60 mg capsule,delayed 60 mg PO DAILY@08 30 Days #30 cap 06/10/21 08/25/21 Unknown Rx release sprinkle losartan 50 mg tablet 50 mg PO DAILY@0800 #30 tab 07/06/21 08/25/21 Unknown Rx ergocalciferol (vitamin D2) 1,250 1,250 mcg PO Q7D #4 cap 07/07/21 08/25/21 08/10/21 Rx mcg (50,000 unit) capsule evolocumab 140 mg/mL subcutaneous 140 mg SUBCUT .[id number] #2 ml 07/07/21 08/25/21 08/05/21 Rx pen injector insulin detemir U-100 100 unit/mL 10 unit SUBCUT DAILY@08 #15 ml 07/07/21 08/25/21 Unknown Rx (3 mL) subcutaneous pen pen needle, diabetic 31 gauge x #100 ea 07/07/21 08/13/21 Unknown Rx 03/01 cyclobenzaprine 10 mg tablet 10 mg PO TID PRN 30 Days #90 tab 07/22/21 08/25/21 08/13/21 20:00 Rx hydromorphone 4 mg tablet 4 mg PO QID PRN 30 Days #120 tab 07/22/21 08/25/21 Unknown Rx pregabalin 150 mg capsule 150 mg PO BID@0800,1800 30 Days 07/22/21 08/25/21 08/13/21 20:00 Rx #60 cap insulin aspart U-100 100 unit/mL 5 unit SUBCUT TID #15 ml 07/28/21 08/25/21 08/13/21 20:00 Rx (3 mL) subcutaneous pen oxybutynin chloride 5 mg 5 mg PO DAILY #30 tab 07/28/21 08/25/21 08/13/21 20:00 Rx tablet,extended release 24 hr isosorbide mononitrate 60 mg 60 mg PO BID@ #180 tab 08/10/21 08/25/21 08/13/21 20:00 Rx tablet,extended release 24 hr pen needle, diabetic 32 gauge x #100 ea 08/11/21 08/13/21 Unknown Rx nitrofurantoin 100 mg PO Q12H 08/12/21 08/25/21 Unknown History monohydrate/macrocrystals 100 mg capsule aspirin [Adult Aspirin Regimen] 81 mg PO DAILY #30 tab 08/15/21 08/25/21 Unknown Rx ciprofloxacin HCl 500 mg PO BID 5 Days #10 tab 08/25/21 Unknown Rx Allergies Allergy/AdvReac Type Severity Reaction Status Date / Time adhesive Allergy Unknown Verified 08/24/21 15:07 clindamycin Allergy ADR-Itching Verified 08/24/21 15:07 codeine Allergy Unknown Verified 08/24/21 15:07 fentanyl Allergy ALGY-Difficulty Verified 08/24/21 15:07 Breathing hydrocodone Allergy Unknown Verified 08/24/21 15:07 latex Allergy ALGY-Swell Verified 08/24/21 15:07 Lip/Tongue/Throat naproxen [From Naprosyn] Allergy Unknown Verified 08/24/21 15:07 nut - unspecified Allergy ALGY-Anaphy Verified 08/24/21 15:07 laxis oxycodone [From Roxicodone] Allergy ADR-Muscle Verified 08/24/21 15:07 Pain Penicillins Allergy Unknown Verified 08/24/21 15:07 sulfamethoxazole Allergy ADR-Migrain Verified 08/20/21 15:30 [From Bactrim] e trimethoprim [From Bactrim] Allergy ADR-Migrain Verified 08/20/21 15:30 e PFSH Acute PFSH: Medical History (HFpEF) heart failure with preserved ejection fraction Acute exacerbation of CHF (congestive heart failure) Anemia Candidiasis of vagina Chest pain, midsternal Chronic knee pain Chronic left-sided low back pain Chronic obstructive pulmonary disease, unspecified Chronic pain of left knee Compression fracture of L2 lumbar vertebra COPD (chronic obstructive pulmonary disease) Coronary artery disease due to type 2 diabetes mellitus Current every day smoker CVA (cerebral vascular accident) Diabetes type 2, uncontrolled Dyslipidemia Dyspnea Elevated troponin Encounter for long-term opiate analgesic use Essential hypertension Exposure to COVID-19 virus Fibromyalgia, primary History of CVA (cerebrovascular accident) History of hypoglycemic coma Hyperlipidemia, mixed Insomnia Intervertebral disc disorder of lumbar region with myelopathy Leukocytosis Low back pain radiating to both legs Lumbosacral spondylosis without myelopathy Neuropathy NSTEMI (non-ST elevated myocardial infarction) Thought to be secondary to plaque rupture. Angiogram July 04 no flow-limiting lesions, or restenosis of previous stent from April 2020 Obesity (BMI 35.0-39.9 without comorbidity) Opioid contract exists Osteoarthritis of left knee Osteoarthritis of spine at multiple levels Pericardial effusion Peripheral sensory neuropathy due to type 2 diabetes mellitus Pneumonia Pressure ulcer Prosthetic joint infection Right hip pain Septic arthritis of knee, left Type 2 diabetes mellitus with diabetic autonomic (poly)neuropathy Unstable angina Vitamin D deficiency Surgical History History of arthroscopic surgery of elbow BILATERAL History of coronary angiogram Angiogram April 2020 with 90% circumflex lesion, drug-eluting stent placed by Dr. Jerome S/p bilateral carpal tunnel release S/P hysterectomy S/P knee surgery RIGHT S/P lumbar fusion DR. Shreya ZAYAS IN [place], [place] L4-L5, L5-S1 Status post left knee replacement Status post lumbar laminectomy Family History Other CAD (coronary artery disease) Cancer Diabetes Social History Second hand smoke exposure: Yes Smoking risk assessment/counseling performed?: Yes Alcohol intake: former Desire information about alcohol rehabilitation?: No Counseling given: No Desire information about substance/drug rehabilitation?: No Counseling given: No Caregiver/support person: No Lives independently: Yes Household members: family and other Details: son Housing: Manufactured/Mobile home Marital status: Unknown Marital status details: She and son state she is not service: No Current occupational status: unemployed Pets and animals: Yes History of recent travel: No Current gender identity: Female Vitals/I&O/Wt Last Vital Signs Temp 98.6 F 08/24/21 16:01 Pulse 86 08/24/21 17:10 Resp 23 H 08/24/21 17:10 BP 109/62 08/24/21 17:17 Pulse Ox 96 08/24/21 17:10 Weight last 48 hrs Weight 210 lb Physical Exam Narrative: EXAM NARRATIVE: GENERAL:obese woman sitting in bed in no acute distress HEENT:Pupils equal round reactive to light. No pallor or icterus. NECK: No JVD. No carotid bruit. CARDIOVASCULAR SYSTEM: S1-S2 regular. No murmur or gallops. RESPIRATORY SYSTEM: Chest clear to auscultation. No wheezes rhonchi or rubs heard. No use of accessory muscles. ABDOMEN: Soft, nontender and nondistended. Normal bowel sounds present. EXTREMITIES: No cyanosis or clubbing. trace-1+ right>L LE edema . No signs of chronic venous insufficiency. Right groin access site with no bruising or hematoma ENVIRONMENTAL INTERN: Patient is alert oriented ?3. No focal neurological deficits. SKIN: Normal turgor and temperature. A&P Assessment and plan (1) Syncope: Near syncopal episode. She has labile hypertension, probably BP drop could have contributed to it. -CT head negative. No acute PE on CT chest. Status: Acute (2) (HFpEF) heart failure with preserved ejection fraction: -mildly decompensated -lasix 40 mg IV x 1 Status: Acute (3) CAD (coronary artery disease): -concern for stent thrombosis given recent stent. -However, no chest pain; troponin has trended down. EKG showed sinus rhythm low QRS voltage in precordial leads and possible old inferior OK. Non specific ST-T wave changes. No dynamic changes on subsequent EKGs. -received lovenox one dose in ER. -f/u on 3rd set of troponin and further changes based on that. Status: Acute Qualifiers: Associated angina: without angina Coronary Disease-Associated Artery/Lesion type: [place] artery [place] vs. transplanted heart: [place] heart Qualified Code(s): I25.10 - Atherosclerotic heart disease of [place] coronary artery without angina pectoris (4) Essential hypertension: Status: Acute Additional A&P Information Elevated troponin: likely type 2 NSTEMI d/t some hypotension. UTI Obesity Mixed hyperlipidemia IDDM-2 Thank you for allowing me to participate in patient's care. Please feel free to call with questions or concerns. Consult Attestations Time Spent in Patient Care: 16 - 35 minutes (>than 50% of time spent in counselling and/or direct pt care on unit). Coding Level of Care Code Acute Protective Clothing Issuer for Chg Fwd Diagnoses Syncope R55 (HFpEF) heart failure with preserved ejection fraction I50.30 CAD (coronary artery disease) I25.10 Associated angina: without angina Coronary Disease-Associated Artery/Lesion type: [place] artery [place] vs. transplanted heart: [place] heart Essential hypertension I10
[2021-08-24 19:19] LABS: Bilirubin Urine 1+ (Negative); Blood Urine Neg (Negative); Glucose Urine UA Norm (Normal); Ketones Urine 1+ (Negative); Nitrate Urine Negative (Negative); Protein Urine Trace (Negative); Urine Appearance Clear (CLEAR); Urine Color Amber (Yellow); Urobilinogen Urine Norm (Negative); pH Urine 5 (5-7)
[2021-08-24 19:20] LABS: Add Urine Culture? Yes; Add Urine Microscopic? YES; Bacteria Urine 1+ /hpf; Leukocyte Esterase Urine 2+ (Negative); RBC Urine 0-4 /hpf (0-2); Squamous Epithelial Cell Urine 0-4 /hpf (0-5); WBC Urine >100 /hpf (0-5)
[2021-08-24] MEDS: FUROsemide 10 mg/mL SDV 4mL 40 MG IVP (20:40)
[2021-08-24 20:55] LABS: INR 0.97 (0.8-1.2)
[2021-08-24 20:56] LABS: Partial Thromboplastin Time 38.8 SECONDS (23.9-36.7)
[2021-08-24 20:58] LABS: D Dimer 1.43 ug/mIFEU (0-0.59)
[2021-08-24] MEDS: ciprofloxacin 400 MG/200 ML PREMIX 200 MG IV (21:00)
--- NOTE | 2021-08-24 21:00 | CTR_ITS ---
PROCEDURE INFORMATION: Exam: CTA Chest With Contrast Exam date and time: 08/24/2021 9:00 PM Age: 56 years old Clinical indication: Shortness of breath; Prior surgery; Additional info: Pe TECHNIQUE: Imaging protocol: Computed tomographic angiography of the chest with contrast. 3D rendering (Not supervised by radiologist): MIP and/or 3D reconstructed images were created by the technologist. Radiation optimization: All CT scans at this facility use at least one of these dose optimization techniques: automated exposure control; mA and/or kV adjustment per patient size (includes targeted exams where dose is matched to clinical indication); or iterative reconstruction. Contrast material: VISI 320; Contrast volume: 72 ml; Contrast route: INTRAVENOUS (IV); COMPARISON: CT angio chest PE protcl [id number] 05/20/2021 12:42 AM RADIATION DOSE METRICS: Total DLP (mGy-cm): 545.03 FINDINGS: Pulmonary arteries: Normal. No pulmonary emboli. Aorta: Unremarkable. No aortic aneurysm. No aortic dissection. Lungs: Scattered areas of linear scarring and smooth interlobular septal thickening noted within the lungs. Mild diffuse bronchial wall thickening. Scattered mosaic attenuation throughout the lungs suggestive of air trapping. Subtle microcystic change along the periphery of the lung apices without overt honeycombing. No consolidation. No masses. Pleural spaces: Unremarkable. No pneumothorax. No pleural effusion. Heart: Coronary artery calcifications noted. No cardiomegaly. No pericardial effusion. Lymph nodes: Partially calcified mediastinal and left hilar lymph nodes suggestive of prior granulomatous disease. Mildly prominent mediastinal and hilar nodes are most likely reactive. Spleen: Multiple calcified granulomas noted in the spleen. Bones/joints: No acute fracture. Soft tissues: Unremarkable. CT/CT angio chest PE protcl [id number] IMPRESSION: 1. Negative for pulmonary embolism. 2. Nonspecific constellation of findings such as diffuse bronchial wall thickening, scattered scarring and interstitial thickening, air trapping, and subtle microcystic change at the lung apices. Findings may be indicative of interstitial lung disease in the appropriate clinical context. 3. Mildly enlarged mediastinal hilar lymph nodes are likely reactive with sequela of chronic granulomatous disease. Radiation Dose CTDIVOL = (mGy): DLP = 545.03 (mGy-cm)
[2021-08-24] MEDS: ticagrelor 90 mg Tablet PO (21:05)
[2021-08-24] MEDS: midodrine 5 mg TABLET PO (21:08)
[2021-08-24 21:11] LABS: Lactic Sepsis W/Reflex 1.3 mmol/L (0.5-2.2)
[2021-08-24 21:17] LABS: Troponin 5 2HR 130.1 ng/L (0-10); Troponin 5 2HR Delta -6.9 ABS# (0-10)
[2021-08-24] MEDS: iodixanol 320 mg/mL 100mL Btl IV (21:17)
--- NOTE | 2021-08-24 21:19 | ECG_ITS ---
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 Measurements Intervals [place] Rate: 96 P: 54 LA: 240 QRS: 4 QRSD: 117 T: 58 QT: 383 QTc: 484 Interpretive Statements SINUS RHYTHM WITH FIRST DEGREE AV BLOCK MODERATE INTRAVENTRICULAR CONDUCTION DELAY [110+ ms QRS DURATION] NONSPECIFIC ST & T-WAVE ABNORMALITY Compared to ECG 08/24/2021 18:58:53 First degree AV block now present Intraventricular conduction delay now present T-wave abnormality now present Myocardial infarct finding no longer present Electronically Signed On 08-26-2021 7:42:08 RETAIL ADVERTISING ACCOUNT EXECUTIVE by Marlee Olmos M.D. [id number]
[2021-08-24] MEDS: morphine 4 mg/mL SDV 1 mL 2 MG IVP (21:40)
--- NOTE | 2021-08-24 23:04 | PM.HP ---
Providers/Chief Complaint Primary Care Provider: KATHY Stewart Chief Complaint: GENERAL WEAKNESS History of Present Illness Mayra Ascencio is a 56 year old female with past medical history of hypertension, hyperlipidemia, coronary artery disease, congestive heart failure, obesity, COPD on 2L of oxygen, chronic back and hip pain, diabetic neuropathy and insulin dependant diabetes mellitus. She underwent left heart cathetarization by Dr. Jerome for chest pain and abnormal stress test on 08/14/21. She was found to have mid LCx 90% stenotic lesion that was treated with balloon angioplasty followed by single drug-eluting stent. She has h/o labile hypertension and is on antihypertensives as well as low dose midodrine. Today she presents to emergency room due to syncopal episode. She was sitting on a recliner. She states that she felt chest pain before the event. Then she fainted. It lasted several minutes. She does not remember other details. She denies similar episodes in the past. Denies dizziness, lightheadedness, focal weakness or sensory loss, headache, problems with speech, facial asymmetry. No nausea or vomiting. No diarrhea. Denies dysuria. No abdominal pain. She has history of chronic pain, takes multiple medications for it including Dilaudid. Review of Systems General: Reports: 10 or more systems reviewed and unremarkable except in HPI and below Medications/Allergies Home Medications Medication Instructions Recorded Confirmed Last Taken Type acetaminophen 650 mg PO Q6H PRN #30 tab 10/16/20 08/13/21 04/21/21 Rx furosemide 40 mg tablet 40 mg PO BID@0800,2100 PRN #60 tab 03/04/21 08/13/21 08/13/21 20:00 Rx albuterol sulfate 90 mcg/actuation 2 puff INHALATION QID PRN 30 Days 03/06/21 08/13/21 08/13/21 20:00 Rx aerosol inhaler #6.7 gm midodrine 5 mg tablet 5 mg PO BID@0800,2100 #60 tab 04/16/21 08/13/21 08/13/21 20:00 Rx quetiapine 100 mg tablet 100 mg PO .qhs #30 tab 05/25/21 08/13/21 08/13/21 20:00 Rx nitroglycerin 0.4 mg sublingual See Rx Instructions .ROUTE 06/05/21 08/13/21 Unknown Rx tablet .COMPLEX #25 tab atorvastatin 80 mg tablet 80 mg PO DAILY #30 tab 06/09/21 08/13/21 08/13/21 20:00 Rx ticagrelor 90 mg tablet 90 mg PO BID@, #180 tab 06/09/21 08/13/21 08/13/21 20:00 Rx duloxetine 60 mg capsule,delayed 60 mg PO DAILY@08 30 Days #30 cap 06/10/21 08/13/21 Unknown Rx release sprinkle losartan 50 mg tablet 50 mg PO DAILY@0800 #30 tab 07/06/21 08/13/21 Unknown Rx ergocalciferol (vitamin D2) 1,250 1,250 mcg PO Q7D #4 cap 07/07/21 08/13/21 08/10/21 Rx mcg (50,000 unit) capsule evolocumab 140 mg/mL subcutaneous 140 mg SUBCUT .i22ttef #2 ml 07/07/21 08/13/21 08/05/21 Rx pen injector insulin detemir U-100 100 unit/mL 10 unit SUBCUT DAILY@08 #15 ml 07/07/21 08/13/21 Unknown Rx (3 mL) subcutaneous pen pen needle, diabetic 31 gauge x #100 ea 07/07/21 08/13/21 Unknown Rx 5/16 cyclobenzaprine 10 mg tablet 10 mg PO TID PRN 30 Days #90 tab 07/22/21 08/13/21 08/13/21 20:00 Rx hydromorphone 4 mg tablet 4 mg PO QID 30 Days #120 tab 07/22/21 08/13/21 08/13/21 20:00 Rx hydromorphone 4 mg tablet 4 mg PO QID PRN 30 Days #120 tab 07/22/21 08/13/21 Unknown Rx pregabalin 150 mg capsule 150 mg PO BID@0800,1800 30 Days 07/22/21 08/13/21 08/13/21 20:00 Rx #60 cap insulin aspart U-100 100 unit/mL 5 unit SUBCUT TID #15 ml 07/28/21 08/13/21 08/13/21 20:00 Rx (3 mL) subcutaneous pen oxybutynin chloride 5 mg 5 mg PO DAILY #30 tab 07/28/21 08/13/21 08/13/21 20:00 Rx tablet,extended release 24 hr levofloxacin 750 mg tablet 750 mg PO DAILY #7 tab 08/05/21 08/13/21 Unknown Rx isosorbide mononitrate 60 mg 60 mg PO BID@ #180 tab 08/10/21 08/13/21 08/13/21 20:00 Rx tablet,extended release 24 hr pen needle, diabetic 32 gauge x #100 ea 08/11/21 08/13/21 Unknown Rx nitrofurantoin 100 mg PO Q12H 08/12/21 08/13/21 Unknown History monohydrate/macrocrystals 100 mg capsule Adult Aspirin Regimen 81 mg PO DAILY #30 tab 08/15/21 Unknown Rx Allergies Allergy/AdvReac Type Severity Reaction Status Date / Time adhesive Allergy Unknown Verified 08/24/21 15:07 clindamycin Allergy ADR-Itching Verified 08/24/21 15:07 codeine Allergy Unknown Verified 08/24/21 15:07 fentanyl Allergy ALGY-Difficulty Verified 08/24/21 15:07 Breathing hydrocodone Allergy Unknown Verified 08/24/21 15:07 latex Allergy ALGY-Swell Verified 08/24/21 15:07 Lip/Tongue/Throat naproxen [From Naprosyn] Allergy Unknown Verified 08/24/21 15:07 nut - unspecified Allergy ALGY-Anaphy Verified 08/24/21 15:07 laxis oxycodone [From Roxicodone] Allergy ADR-Muscle Verified 08/24/21 15:07 Pain Penicillins Allergy Unknown Verified 08/24/21 15:07 sulfamethoxazole Allergy ADR-Migrain Verified 08/20/21 15:30 [From Bactrim] e trimethoprim [From Bactrim] Allergy ADR-Migrain Verified 08/20/21 15:30 e PFSH Acute PFSH: Medical History (Updated 08/24/21 @ 23:09 by Lj Brooks) (HFpEF) heart failure with preserved ejection fraction Acute exacerbation of CHF (congestive heart failure) Anemia Candidiasis of vagina Chest pain, midsternal Chronic knee pain Chronic left-sided low back pain Chronic obstructive pulmonary disease, unspecified Chronic pain of left knee Compression fracture of L2 lumbar vertebra COPD (chronic obstructive pulmonary disease) Coronary artery disease due to type 2 diabetes mellitus Current every day smoker CVA (cerebral vascular accident) Diabetes type 2, uncontrolled Dyslipidemia Dyspnea Elevated troponin Encounter for long-term opiate analgesic use Essential hypertension Exposure to COVID-19 virus Fibromyalgia, primary History of CVA (cerebrovascular accident) History of hypoglycemic coma Hyperlipidemia, mixed Insomnia Intervertebral disc disorder of lumbar region with myelopathy Leukocytosis Low back pain radiating to both legs Lumbosacral spondylosis without myelopathy Neuropathy NSTEMI (non-ST elevated myocardial infarction) Thought to be secondary to plaque rupture. Angiogram July 04 no flow-limiting lesions, or restenosis of previous stent from April 2020 Obesity (BMI 35.0-39.9 without comorbidity) Opioid contract exists Osteoarthritis of left knee Osteoarthritis of spine at multiple levels Pericardial effusion Peripheral sensory neuropathy due to type 2 diabetes mellitus Pneumonia Pressure ulcer Prosthetic joint infection Right hip pain Septic arthritis of knee, left Type 2 diabetes mellitus with diabetic autonomic (poly)neuropathy Unstable angina Vitamin D deficiency Surgical History History of arthroscopic surgery of elbow BILATERAL History of coronary angiogram Angiogram April 2020 with 90% circumflex lesion, drug-eluting stent placed by Dr. Jerome S/p bilateral carpal tunnel release S/P hysterectomy S/P knee surgery RIGHT S/P lumbar fusion DR. Shreya ZAYAS IN [place], [place] L4-L5, L5-S1 Status post left knee replacement Status post lumbar laminectomy Family History Other CAD (coronary artery disease) Cancer Diabetes Social History Second hand smoke exposure: Yes Smoking risk assessment/counseling performed?: Yes Alcohol intake: former Desire information about alcohol rehabilitation?: No Counseling given: No Desire information about substance/drug rehabilitation?: No Counseling given: No Caregiver/support person: No Lives independently: Yes Household members: family and other Details: son Housing: Manufactured/Mobile home Marital status: Unknown Marital status details: She and son state she is not service: No Current occupational status: unemployed Pets and animals: Yes History of recent travel: No Current gender identity: Female Vitals/I&O/Wt Last Vital Signs Temp 98.6 F 08/24/21 16:01 Pulse 86 08/24/21 17:10 Resp 23 H 08/24/21 17:10 BP 109/62 08/24/21 17:17 Pulse Ox 96 08/24/21 17:10 Weight last 48 hrs Weight 95.254 kg Physical Exam Narrative: EXAM NARRATIVE: Patient is awake alert and oriented x3. No acute distress. Mood and affect are appropriate. Responses are adequate. Skin is warm and dry. Dry mucous membranes Neck supple. No JVD Lungs are clear to auscultation bilaterally. Heart S1, S2, regular. No respiratory distress Abdomen is soft, nontender, bowel sounds are present Extremities no edema cyanosis or calf tenderness bilaterally No focal deficits. Eyes PERRL, extraocular muscle intact Data : 08/24/21 17:09 08/24/21 17:09 Other Labs: Laboratory Results WBC 18.6 10^3/uL (4.0-10.0) H 08/24/21 17:09 RBC 4.16 10^6/uL (4.1-5.3) 08/24/21 17:09 Hgb 10.7 g/dL (11.5-15.3) L 08/24/21 17:09 Hct 37.1 % (37.0-47.0) 08/24/21 17:09 MCV 89.2 fl (81-99) 08/24/21 17:09 MCH 25.7 pg (28.0-34.0) L 08/24/21 17:09 MCHC 28.8 g/dL (30.0-36.0) L 08/24/21 17:09 RDW 16.7 % (12.1-15.1) H 08/24/21 17:09 Plt Count 449 10^3/cmm (130-400) H 08/24/21 17:09 MPV 9.3 fL (7.4-10.4) 08/24/21 17:09 Neut % (Auto) 58.8 % 08/24/21 17:09 Lymph % (Auto) 21.2 % 08/24/21 17:09 Clinch % (Auto) 7.8 % 08/24/21 17:09 Eos % (Auto) 10.6 % 08/24/21 17:09 Baso % (Auto) 0.6 % 08/24/21 17:09 Neut # (Auto) 10.92 10^3/uL (1.8-7.7) H 08/24/21 17:09 Lymph # (Auto) 3.9 10^3/uL (0.8-4.8) 08/24/21 17:09 Clinch # (Auto) 1.5 10^3/uL (0.2-0.9) H 08/24/21 17:09 Eos # (Auto) 2.0 10^3/uL (0.0-0.8) H 08/24/21 17:09 Baso # (Auto) 0.1 10^3/uL (0.0-0.1) 08/24/21 17:09 Nucleated RBC % (auto) 0 % 08/24/21 17:09 Nucleated RBCs # 0.0 /100WBC 08/24/21 17:09 PT 13.20 SECONDS (12.1-14.9) 08/24/21 20:17 INR 0.97 (0.8-1.2) 08/24/21 20:17 APTT 38.8 SECONDS (23.9-36.7) H 08/24/21 20:17 D-Dimer 1.43 ug/mIFEU (0-0.59) H 08/24/21 20:17 Specimen Type Arterial 08/24/21 17:19 Sample Site Radial, left 08/24/21 17:19 ABG pH 7.35 (7.35-7.45) 08/24/21 17:19 ABG pCO2 45.5 mmHg (35-45) H 08/24/21 17:19 ABG pO2 59.8 mmHg (80.0-100.0) L 08/24/21 17:19 ABG HCO3 25.1 mmol/L (22-26) 08/24/21 17:19 ABG O2 Saturation 91.8 08/24/21 17:19 ABG Base Excess -0.8 mmol/L (-2.0-2.0) 08/24/21 17:19 Freddy Test Pos 08/24/21 17:19 A-a O2 Gradient 4.5 mmHg (5-10) L 08/24/21 17:19 Hematocrit 33.2 % (37-47) L 08/24/21 17:19 Hgb O2 Saturation 86.3 % (95-100) L 08/24/21 17:19 Carboxyhemoglobin 5.4 %THgb (0.4-20.1) 08/24/21 17:19 Methemoglobin 0.7 % (0.4-1.5) 08/24/21 17:19 Total Hemoglobin 10.8 g/dL (12-16) L 08/24/21 17:19 Sodium 133.0 mmol/L (131-143) 08/24/21 17:19 Potassium 4.4 mmol/L (3.5-5.0) 08/24/21 17:19 Glucose 211.0 mg/dL (70-115) H 08/24/21 17:19 Ionized Calcium 1.2 mmol/L (1.1-1.4) 08/24/21 17:19 O2 Delivery Device Nc 08/24/21 17:19 O2 Liters/Min 2.5 % 08/24/21 17:19 Fish Cleaner Machine Tender ID Gd 08/24/21 17:19 Sodium 130 mmol/L (136-145) L 08/24/21 17:09 Potassium 4.8 mmol/L (3.5-5.1) 08/24/21 17:09 Chloride 97 mmol/L (98-107) L 08/24/21 17:09 Carbon Dioxide 17 mmol/L (22-29) L 08/24/21 17:09 Anion Gap 20.8 (5-19) H 08/24/21 17:09 BUN 14 mg/dL (6-20) 08/24/21 17:09 Creatinine 1.0 mg/dL (0.5-0.9) H 08/24/21 17:09 GFR Calculation 57.8 mL/min (90-130) L 08/24/21 17:09 Glucose 193 mg/dL (65-115) H 08/24/21 17:09 Calculated Osmolality 276 mOsm/kg (285-295) L 08/24/21 17:09 Lactic Acid 1.3 mmol/L (0.5-2.2) 08/24/21 20:17 Calcium 8.6 mg/dL (8.5-10.5) 08/24/21 17:09 Total Bilirubin 0.2 mg/dL (0.15-1.2) 08/24/21 17:09 AST 22 U/L (0-32) 08/24/21 17:09 ALT 12 U/L (0-33) 08/24/21 17:09 Alkaline Phosphatase 92 IU/L (35-105) 08/24/21 17:09 Troponin T Baseline 137 ng/L (0-10) H* 08/24/21 17:09 Troponin T 120 Minute 130.1 ng/L (0-10) H 08/24/21 20:17 Delta Troponin T -6.9 ABS# (0-10) L 08/24/21 20:17 NT-Pro-B Natriuret Pep 356 pg/mL (0-125) H 08/24/21 17:09 Total Protein 6.4 g/dL (6.6-8.7) L 08/24/21 17:09 Albumin 3.0 g/dL (3.5-5.2) L 08/24/21 17:09 Globulin 3.4 g/dL (1.3-4.6) 08/24/21 17:09 Urine Color Sravanthi (Yellow) 08/24/21 18:33 Urine Appearance Clear (CLEAR) 08/24/21 18:33 Urine pH 5 (5-7) 08/24/21 18:33 Ur Specific [place] 1.020 (1.005-1.030) 08/24/21 18:33 Urine Protein Trace (Negative) 08/24/21 18:33 Urine Glucose (UA) Norm (Normal) 08/24/21 18:33 Urine Ketones 1+ (Negative) H 08/24/21 18:33 Urine Blood Neg (Negative) 08/24/21 18:33 Urine Nitrate Negative (Negative) 08/24/21 18:33 Urine Bilirubin 1+ (Negative) H 08/24/21 18:33 Urine Urobilinogen Norm mg/dL (Negative) 08/24/21 18:33 Ur Leukocyte Esterase 2+ (Negative) H 08/24/21 18:33 Urine RBC 0-4 /hpf (0-2) H 08/24/21 18:33 Urine WBC >100 /hpf (0-5) H 08/24/21 18:33 Ur Squamous Epith Cells 0-4 /hpf (0-5) H 08/24/21 18:33 Amorphous Sediment Not Reportable 08/24/21 18:33 Urine Bacteria 1+ /hpf (NONE) H 08/24/21 18:33 Urine Yeast 3+ /hpf H 08/24/21 18:33 Impressions Chest X-Ray 08/24/21 15:18 IMPRESSION: Mild interstitial thickening. May be due to small amount of fluid overload or pneumonitis. Similar to the prior study. Head CT 08/24/21 15:44 IMPRESSION: 1. No acute intracranial hemorrhage. 2. Mild cerebral atrophy, slightly more than expected for age. Chest CTA 08/24/21 21:00 IMPRESSION: 1. Negative for pulmonary embolism. 2. Nonspecific constellation of findings such as diffuse bronchial wall thickening, scattered scarring and interstitial thickening, air trapping, and subtle microcystic change at the lung apices. Findings may be indicative of interstitial lung disease in the appropriate clinical context. 3. Mildly enlarged mediastinal hilar lymph nodes are likely reactive with sequela of chronic granulomatous disease. Radiation Dose CTDIVOL = (mGy): DLP = 545.03 (mGy-cm) Micro: Microbiology 08/24/21 20:17 Blood Culture - Preliminary Blood SPECIMEN COLLECTED 08/24/21 20:17 Blood Culture - Preliminary Blood SPECIMEN COLLECTED A&P Assessment and plan (1) Syncope: Status: Acute (2) Chest pain: Status: Acute (3) Demand ischemia: Status: Acute (4) Hypotension: Status: Acute (5) Dehydration: Status: Acute (6) Acute kidney injury: Status: Acute (7) Urinary tract infection: Status: Acute Additional A&P Information 56-year-old female with past medical history of diabetes, hypertension, labile blood pressure, chronic pain syndrome, on chronic opiates and other pain medications, coronary artery disease, recent cardiac catheterization and stenting, COPD who presented to emergency room with complaints of syncopal episode. She reports chest pain prior to the onset of her fainting. Syncopal episode. The patient is being admitted for observation. We will monitor her on telemetry to rule out any cardiac events. We will continue monitoring her cardiac enzymes. Was seen and evaluated by Dr. Olmos. Appreciate her input. Other possibilities are hypotension probably due to medications, including opiates and antihypertensive meds, dehydration, and urinary tract infection. We will try to adjust her medications to prevent future similar episodes. If she develops any new similar symptoms will consider additional testing for syncope. At this point I do not see any neurologic deficits. Doubt seizures. Dehydration. We will hydrate her gently and recheck her chemistry panel in the morning. Acute kidney injury probably secondary to above. UTI. She is allergic to multiple antibiotics. Her last culture was positive for E. coli sensitive to Cipro. She was given 1 dose of Cipro in the emergency room. We will continue this for now. History of coronary artery disease. She reports chest pain prior to the syncope. We will continue her home cardiac medications. We will monitor her. Will wait for additional recommendations by Dr. Olmos. Hyponatremia. Chronic. Probably exacerbated by dehydration. Will monitor. Anemia. Will monitor. DVT prophylaxis. Lovenox. CODE STATUS. She wants to be full code. The plan of care was discussed with the patient and the family. They verbalized understanding and agreement. Attestations Medical Necessity Statement*: Observation Coding Level of Care Code Acute Lead [employer]st for [facility] Diagnoses Syncope R55 Chest pain R07.9 Demand ischemia I24.8 Hypotension I95.9 Dehydration E86.0 Acute kidney injury N17.9 Urinary tract infection N39.0
[2021-08-24 23:28] LABS: Troponin 5 6HR 117.5 ng/L (0-10); Troponin 5 6HR Delta -19.5 ng/L (0-12)
[2021-08-25] VITALS (10 sets, daily range): BP systolic 124–162; BP diastolic 65–87; PULSE 83–102; RESP 16–26; TEMP 36.7–37; O2SAT 93–94
[2021-08-25] MEDS: sodium chloride 0.9% 1,000 ML 75 ML IV (00:27)
[2021-08-25] MEDS: quetiapine 100 mg Tablet PO (02:24)
[2021-08-25 04:00] LABS: Basophils % 0.1 %; Eosinophils % 0.1 %; Hematocrit 34.3 % (37.0-47.0); Hemoglobin 10.9 g/dL (11.5-15.3); Lymphocytes # 1.6 10^3/uL (0.8-4.8); Lymphocytes % 11.9 %; Mean Corpuscular HGB Conc 31.8 g/dL (30.0-36.0); Mean Corpuscular Hemoglobin 25.1 pg (28.0-34.0); Mean Corpuscular Volume 78.9 fl (81-99); Mean Platelet Volume 9.7 fL (7.4-10.4); Monocytes # 0.2 10^3/uL (0.2-0.9); Monocytes % 1.3 %; Neutrophils # 11.47 10^3/uL (1.8-7.7); Neutrophils % 85.7 %; Nucleated Red Blood Cells % 0 %; Platelet Count 535 10^3/cmm (130-400); Red Blood Count 4.35 10^6/uL (4.1-5.3); Red Cell Distribution Width 16.1 % (12.1-15.1); White Blood Count 13.4 10^3/uL (4.0-10.0)
[2021-08-25 04:36] LABS: Chol HDL Ratio 5.12 mg/dL (0.0-4.40); Cholesterol 215 mg/dL (0-200); HDL Cholesterol 42 mg/dL (60-100); LDL Cholesterol Calculated 141 mg/dL (50-129); LDL HDL Ratio 3.36 RATIO (0.00-3.22); Triglycerides 160 mg/dL (0-150)
[2021-08-25 04:37] LABS: Blood Urea Nitrogen 15 mg/dL (6-20); Calcium 9.2 mg/dL (8.5-10.5); Carbon Dioxide 24 mmol/L (22-29); Chloride 95 mmol/L (98-107); Glomerular Filtration Rate 65.2 mL/min (90-130); Glucose 381 mg/dL (65-115); Magnesium 1.7 mg/dL (1.7-2.3); Osmolality Calculated 295 mOsm/kg (285-295); Sodium 134 mmol/L (136-145)
[2021-08-25] MEDS: atorvastatin 40 mg Tablet 80 MG PO (08:55)
[2021-08-25] MEDS: isosorbide mononitrate ER 60 mg Tablet PO (08:56)
[2021-08-25] MEDS: pregabalin 150 mg Capsule PO (08:56)
[2021-08-25] MEDS: aspirin 81 mg EC Tablet PO (08:56)
[2021-08-25] MEDS: ticagrelor 90 mg Tablet PO (08:56)
[2021-08-25] MEDS: midodrine 5 mg TABLET PO (08:56)
[2021-08-25] MEDS: ciprofloxacin 500 mg Tablet PO (08:56)
[2021-08-25 11:16] LABS: Glucose Point of Care 378 mg/dL (70-110)
[2021-08-25] MEDS: insulin lispro 100 unit/1 mL SUBCUT (11:35)
[2021-08-25] MEDS: enoxaparin 40 mg/0.4 mL Syringe SUBCUT (11:35)
--- NOTE | 2021-08-25 12:49 | P.DS_ITS ---
Discharge Providers Date of Admission: 08/24/21 23:33 Date of Discharge: August 25, 2021 Attending Provider at Admission: Lj Brooks Attending Provider at Discharge: Emeterio Prather MD Primary Care Provider: KATHY Stewart Diagnoses at Discharge Discharge Diagnosis (1) Syncope: (2) Chest pain: (3) Demand ischemia: (4) Hypotension: (5) Urinary tract infection: Reason for Visit Reason for Visit: GENERAL WEAKNESS Hospital Course Hospital Course 56 year old female with past medical history of hypertension, hyperlipidemia, coronary artery disease, congestive heart failure, obesity, COPD on 2L of oxygen, chronic back and hip pain, diabetic neuropathy and insulin dependant diabetes mellitus. She underwent left heart cathetarization by Dr. Jerome for chest pain and abnormal stress test on 08/14/21. She was found to have mid LCx 90% stenotic lesion that was treated with balloon angioplasty followed by single drug-eluting stent. Came in with chief complaint of after experiencing a syncopal episode at home she was sitting in a recliner and transiently passed out , she stated on admission that she experienced chest pain before the event Denied any dizziness, lightheadedness, focal weakness or sensory loss, headache, problems with speech, facial asymmetry. No nausea or vomiting. No diarrhea. Patient was admitted for the management of syncopal episode likely vasovagal, Other possibilities are hypotension probably due to medications, including opiates and antihypertensive meds. During the hospital stay she was kept on telemetry monitoring, failed to show any significant arrhythmia, orthostatic vital signs were checked and were negative. CT head without contrast: No acute intracranial pathology, CTA chest: No pulmonary embolism.EKG sinus rhythm with first-degree heart block. She had no similar episode during the hospital stay.on admission she was also complaining of worsening shortness of breath with exertion, she has a history of heart failure with preserved ejection fraction she was given Lasix IV x1 1 dose to which she responded well, she was also given Solu-Medrol in the ER, as well as she was kept on duo nebs, supplemental oxygen as, shortness of breath was likely secondary to her underlying heart failure.At the time of discharge the shortness of breath had markedly improved. She was euvolemic, and was discharged on her home regimen of Lasix. Patient was also managed for her other comorbid conditions, for a history of coronary artery disease status post recent stent She was continued on aspirin , statin , Brilinta, imdur. She was also managed for UTI she was kept on ciprofloxacin and was discharged on ciprofloxacin for additional 5 days. She was also managed for type II NSTEMI likely secondary demand ischemia.Patient responded well to the above medical management and is being discharged in stable condition to follow-up with the cardiology as an outpatient. Physical Exam Const: COMMON NORMALS: patient oriented x3 HENMT: COMMON NORMALS: normocephalic and atraumatic HEAD & SCALP: normocephalic and atraumatic Resp: COMMON NORMALS: clear to auscultation bilaterally AUSCULTATION: clear to auscultation bilaterally Cardio: COMMON NORMALS: regular rate, regular rhythm, S1 normal heart sound present, S2 normal heart sound present, No gallops present (Cardio), No murmurs present (Cardio), No rub (Cardio) and Peripheral pulses 2+ throughout RATE: regular rate RHYTHM: regular rhythm HEART SOUNDS: S1 normal heart sound present and S2 normal heart sound present PERIPHERAL PULSES: Peripheral pulses 2+ throughout GI: COMMON NORMALS: Normal to inspection, nondistended, normoactive bowel sounds present, Soft to palpation, non-tender, No hepatosplenomegaly present and no masses AUSCULTATION: Yes normoactive bowel sounds PALPATION: Yes Soft to palpation and Yes No hepatosplenomegaly present RECTAL EXAM: deferred Extremity: COMMON NORMALS: no clubbing, cyanosis or edema and no pedal edema Neuro: COMMON NORMALS: patient oriented x3 Discharge Data Data Completed and Pending: Completed Studies During Hospitalization Category Date Time Status CT angio chest PE protcl [id number] Urge nt Cat Scan 08/24/21 21:[address] head wo con* 7 [id number] Urgent Cat Scan 08/24/21 15:44 Completed XR chest 1V calin ble [id number] Stat Exams 08/24/21 15:18 Completed Pending at discharge Category Date Time Status Blood Culture Sta t Lab 08/24/21 20:17 Results Urine Culture Sta t Lab 08/24/21 18:33 Received Labs from last 24 hours 08/25/21 08/25/21 08/25/21 11:08 03:23 03:23 WBC RBC Hgb Hct MCV MCH MCHC RDW Plt Count MPV Neut % (Auto) Lymph % (Auto) Antelope % (Auto) Eos % (Auto) Baso % (Auto) Neut # (Auto) Lymph # (Auto) Antelope # (Auto) Eos # (Auto) Baso # (Auto) Nucleated RBC % (a uto) Nucleated RBCs # PT INR APTT D-Dimer Specimen Type Sample Site ABG pH ABG pCO2 ABG pO2 ABG HCO3 ABG O2 Saturation ABG Base Excess Freddy Test A-a O2 Gradient Hematocrit Hgb O2 Saturation Carboxyhemoglobin Methemoglobin Total Hemoglobin Ionized Calcium O2 Delivery Device O2 Liters/Min Gas Cutting Machine Operator ID Sodium 134 L Potassium 4.0 Chloride 95 L Carbon Dioxide 24 Anion Gap 19.0 BUN 15 Creatinine 0.9 GFR Calculation 65.2 L Glucose 381 H POC Glucose 378 H Calculated Osmolal ity 295 Lactic Acid Calcium 9.2 Magnesium 1.7 Total Bilirubin AST ALT Alkaline Phosphata se Troponin T Baselin e Troponin T 120 Min [place] Delta Troponin T Troponin T Hi Sens 6Hr Troponin T Hi Sens 6Hr Delta NT-Pro-B Natriuret Pep Total Protein Albumin Globulin Triglycerides 160 H Cholesterol 215 H LDL Cholesterol, C alc 141 H HDL Cholesterol 42 L LDL/HDL Ratio 3.36 H Cholesterol/HDL Ra grace 5.12 H Urine Color Urine Appearance Urine pH Ur Specific Gravit y Urine Protein Urine Glucose (UA) Urine Ketones Urine Blood Urine Nitrate Urine Bilirubin Urine Urobilinogen Ur Leukocyte Maria Elena ase Urine RBC Urine WBC Ur Squamous Epith Cells Amorphous Sediment Urine Bacteria Urine Yeast 08/25/21 08/24/21 08/24/21 03:23 22:59 20:17 WBC 13.4 H RBC 4.35 Hgb 10.9 L Hct 34.3 L MCV 78.9 L D MCH 25.1 L MCHC 31.8 D RDW 16.1 H Plt Count 535 H MPV 9.7 Neut % (Auto) 85.7 Lymph % (Auto) 11.9 Antelope % (Auto) 1.3 Eos % (Auto) 0.1 Baso % (Auto) 0.1 Neut # (Auto) 11.47 H Lymph # (Auto) 1.6 Antelope # (Auto) 0.2 Eos # (Auto) 0.0 Baso # (Auto) 0.0 Nucleated RBC % (a uto) 0 Nucleated RBCs # 0.0 PT INR APTT D-Dimer Specimen Type Sample Site ABG pH ABG pCO2 ABG pO2 ABG HCO3 ABG O2 Saturation ABG Base Excess Freddy Test A-a O2 Gradient Hematocrit Hgb O2 Saturation Carboxyhemoglobin Methemoglobin Total Hemoglobin Ionized Calcium O2 Delivery Device O2 Liters/Min Gas Cutting Machine Operator ID Sodium Potassium Chloride Carbon Dioxide Anion Gap BUN Creatinine GFR Calculation Glucose POC Glucose Calculated Osmolal ity Lactic Acid 1.3 Calcium Magnesium Total Bilirubin AST ALT Alkaline Phosphata se Troponin T Baselin e Troponin T 120 Min [place] Delta Troponin T Troponin T Hi Sens 6Hr 117.5 H Troponin T Hi Sens 6Hr Delta -19.5 L NT-Pro-B Natriuret Pep Total Protein Albumin Globulin Triglycerides Cholesterol LDL Cholesterol, C alc HDL Cholesterol LDL/HDL Ratio Cholesterol/HDL Ra grace Urine Color Urine Appearance Urine pH Ur Specific Gravit y Urine Protein Urine Glucose (UA) Urine Ketones Urine Blood Urine Nitrate Urine Bilirubin Urine Urobilinogen Ur Leukocyte Maria Elena ase Urine RBC Urine WBC Ur Squamous Epith Cells Amorphous Sediment Urine Bacteria Urine Yeast 08/24/21 08/24/21 08/24/21 20:17 20:17 18:33 WBC RBC Hgb Hct MCV MCH MCHC RDW Plt Count MPV Neut % (Auto) Lymph % (Auto) Antelope % (Auto) Eos % (Auto) Baso % (Auto) Neut # (Auto) Lymph # (Auto) Antelope # (Auto) Eos # (Auto) Baso # (Auto) Nucleated RBC % (a uto) Nucleated RBCs # PT 13.20 INR 0.97 APTT 38.8 H D-Dimer 1.43 H Specimen Type Sample Site ABG pH ABG pCO2 ABG pO2 ABG HCO3 ABG O2 Saturation ABG Base Excess Freddy Test A-a O2 Gradient Hematocrit Hgb O2 Saturation Carboxyhemoglobin Methemoglobin Total Hemoglobin Ionized Calcium O2 Delivery Device O2 Liters/Min Gas Cutting Machine Operator ID Sodium Potassium Chloride Carbon Dioxide Anion Gap BUN Creatinine GFR Calculation Glucose POC Glucose Calculated Osmolal ity Lactic Acid Calcium Magnesium Total Bilirubin AST ALT Alkaline Phosphata se Troponin T Baselin e Troponin T 120 Min [place] 130.1 H Delta Troponin T -6.9 L Troponin T Hi Sens 6Hr Troponin T Hi Sens 6Hr Delta NT-Pro-B Natriuret Pep Total Protein Albumin Globulin Triglycerides Cholesterol LDL Cholesterol, C alc HDL Cholesterol LDL/HDL Ratio Cholesterol/HDL Ra grace Urine Color Sravanthi Urine Appearance Clear Urine pH 5 Ur Specific Gravit y 1.020 Urine Protein Trace Urine Glucose (UA) Norm Urine Ketones 1+ H Urine Blood Neg Urine Nitrate Negative Urine Bilirubin 1+ H Urine Urobilinogen Norm Ur Leukocyte Maria Elena ase 2+ H Urine RBC 0-4 H Urine WBC >100 H Ur Squamous Epith Cells 0-4 H Amorphous Sediment Not Reportable Urine Bacteria 1+ H Urine Yeast 3+ H 08/24/21 08/24/21 08/24/21 17:19 17:09 17:09 WBC RBC Hgb Hct MCV MCH MCHC RDW Plt Count MPV Neut % (Auto) Lymph % (Auto) Antelope % (Auto) Eos % (Auto) Baso % (Auto) Neut # (Auto) Lymph # (Auto) Antelope # (Auto) Eos # (Auto) Baso # (Auto) Nucleated RBC % (a uto) Nucleated RBCs # PT INR APTT D-Dimer Specimen Type Arterial Sample Site Radial, left ABG pH 7.35 ABG pCO2 45.5 H ABG pO2 59.8 L ABG HCO3 25.1 ABG O2 Saturation 91.8 ABG Base Excess -0.8 Freddy Test Pos A-a O2 Gradient 4.5 L Hematocrit 33.2 L Hgb O2 Saturation 86.3 L Carboxyhemoglobin 5.4 Methemoglobin 0.7 Total Hemoglobin 10.8 L Ionized Calcium 1.2 O2 Delivery Device Nc O2 Liters/Min 2.5 Gas Cutting Machine Operator ID Gd Sodium 133.0 130 L Potassium 4.4 4.8 Chloride 97 L Carbon Dioxide 17 L Anion Gap 20.8 H BUN 14 Creatinine 1.0 H GFR Calculation 57.8 L Glucose 211.0 H 193 H POC Glucose Calculated Osmolal ity 276 L Lactic Acid Calcium 8.6 Magnesium Total Bilirubin 0.2 AST 22 ALT 12 Alkaline Phosphata se 92 Troponin T Baselin e 137 H* Troponin T 120 Min [place] Delta Troponin T Troponin T Hi Sens 6Hr Troponin T Hi Sens 6Hr Delta NT-Pro-B Natriuret Pep 356 H Total Protein 6.4 L Albumin 3.0 L Globulin 3.4 Triglycerides Cholesterol LDL Cholesterol, C alc HDL Cholesterol LDL/HDL Ratio Cholesterol/HDL Ra grace Urine Color Urine Appearance Urine pH Ur Specific Gravit y Urine Protein Urine Glucose (UA) Urine Ketones Urine Blood Urine Nitrate Urine Bilirubin Urine Urobilinogen Ur Leukocyte Maria Elena ase Urine RBC Urine WBC Ur Squamous Epith Cells Amorphous Sediment Urine Bacteria Urine Yeast 08/24/21 17:09 WBC 18.6 H RBC 4.16 Hgb 10.7 L Hct 37.1 MCV 89.2 MCH 25.7 L MCHC 28.8 L RDW 16.7 H Plt Count 449 H MPV 9.3 Neut % (Auto) 58.8 Lymph % (Auto) 21.2 Antelope % (Auto) 7.8 Eos % (Auto) 10.6 Baso % (Auto) 0.6 Neut # (Auto) 10.92 H Lymph # (Auto) 3.9 Antelope # (Auto) 1.5 H Eos # (Auto) 2.0 H Baso # (Auto) 0.1 Nucleated RBC % (a uto) 0 Nucleated RBCs # 0.0 PT INR APTT D-Dimer Specimen Type Sample Site ABG pH ABG pCO2 ABG pO2 ABG HCO3 ABG O2 Saturation ABG Base Excess Freddy Test A-a O2 Gradient Hematocrit Hgb O2 Saturation Carboxyhemoglobin Methemoglobin Total Hemoglobin Ionized Calcium O2 Delivery Device O2 Liters/Min Gas Cutting Machine Operator ID Sodium Potassium Chloride Carbon Dioxide Anion Gap BUN Creatinine GFR Calculation Glucose POC Glucose Calculated Osmolal ity Lactic Acid Calcium Magnesium Total Bilirubin AST ALT Alkaline Phosphata se Troponin T Baselin e Troponin T 120 Min [place] Delta Troponin T Troponin T Hi Sens 6Hr Troponin T Hi Sens 6Hr Delta NT-Pro-B Natriuret Pep Total Protein Albumin Globulin Triglycerides Cholesterol LDL Cholesterol, C alc HDL Cholesterol LDL/HDL Ratio Cholesterol/HDL Ra grace Urine Color Urine Appearance Urine pH Ur Specific Gravit y Urine Protein Urine Glucose (UA) Urine Ketones Urine Blood Urine Nitrate Urine Bilirubin Urine Urobilinogen Ur Leukocyte Maria Elena ase Urine RBC Urine WBC Ur Squamous Epith Cells Amorphous Sediment Urine Bacteria Urine Yeast Vitals: Last Vital Signs Temp 98.6 F 08/25/21 03:53 Pulse 102 H 08/25/21 09:33 Resp 16 08/25/21 11:36 BP 156/87 08/25/21 08:50 Pulse Ox 94 08/25/21 11:36 Discharge Plan Discharge Patient Disposition: Home Condition: Stable Prescriptions: New ciprofloxacin HCl 500 mg Tablet 500 mg PO BID 5 Days Qty: 10 RF: 0 Continued hydromorphone 4 mg tablet 4 mg PO QID PRN (Reason: pain) 30 Days Qty: 120 RF: 0 cyclobenzaprine 10 mg tablet 10 mg PO TID PRN (Reason: muscle spasm) 30 Days Qty: 90 RF: 1 pregabalin [Lyrica] 150 mg capsule 150 mg PO BID@0800,1800 30 Days Qty: 60 RF: 1 ergocalciferol (vitamin D2) 1,250 mcg (50,000 unit) capsule 1,250 mcg PO Q7D Qty: 4 RF: 2 (DME) pen needle, diabetic [Comfort EZ Pen [place]] 31 gauge x 5/16 needle See Rx Instructions .Route Qty: 100 RF: 6 Levemir FlexTouch U-100 Insuln 100 unit/mL (3 mL) insulin pen 10 unit SUBCUT DAILY@08 Qty: 15 RF: 2 Repatha SureClick 140 mg/mL pen injector 140 mg SUBCUT .[id number] Qty: 2 RF: 5 albuterol sulfate [Ventolin HFA] 90 mcg/actuation HFA aerosol inhaler 2 puff INHALATION QID PRN (Reason: shortness of breath or wheezing) 30 Days Qty: 6.7 RF: 2 nitroglycerin 0.4 mg tablet, sublingual See Rx Instructions .ROUTE .COMPLEX Qty: 25 RF: 3 insulin aspart U-100 [Novolog Flexpen U-100 Insulin] 100 unit/mL (3 mL) insulin pen 5 unit SUBCUT TID Qty: 15 RF: 1 oxybutynin chloride 5 mg tablet extended release 24hr 5 mg PO DAILY Qty: 30 RF: 2 furosemide [Lasix] 40 mg tablet 40 mg PO BID@0800,2100 PRN (Reason: Edema) Qty: 60 RF: 12 midodrine 5 mg tablet 5 mg PO BID@0800,2100 Qty: 60 RF: 5 quetiapine 100 mg tablet 100 mg PO .qhs Qty: 30 RF: 2 atorvastatin 80 mg tablet 80 mg PO DAILY Qty: 30 RF: 2 Brilinta 90 mg tablet 90 mg PO BID@08,21 Qty: 180 RF: 1 duloxetine 60 mg capsule, delayed rel sprinkle 60 mg PO DAILY@08 30 Days Qty: 30 RF: 0 losartan 50 mg tablet 50 mg PO DAILY@0800 Qty: 30 RF: 6 isosorbide mononitrate 60 mg tablet extended release 24 hr 60 mg PO BID@08,21 Qty: 180 RF: 0 (DME) pen needle, diabetic [Comfort EZ Pen [place]] 32 gauge x 5/32 needle See Rx Instructions .Route Qty: 100 RF: 2 aspirin [Adult Aspirin Regimen] 81 mg tablet,delayed release (DR/EC) 81 mg PO DAILY Qty: 30 RF: 4 acetaminophen 325 mg Tablet 650 mg PO Q6H PRN (Reason: Mild/Mod Pain Or Temp >/= 101) Qty: 30 RF: 0 Discontinued nitrofurantoin monohyd/m-cryst 100 mg capsule 100 mg PO Q12H RF: 0 No Action (DME) COCK UP SPLINT See Rx Instructions .Route .MEDSUPPLY Qty: 2 RF: 0 Discharge Orders: Discharge Order (Routine); Ordered 08/25/21 Ordered By: Emeterio Prather Referrals: Darrell Jerome MD [Physician] - 1 month (Please follow-up with Dr. Jerome on at 12:45P.M. If you have any questions or need to reschedule. Please call ) Aurea Walters FNP [Nurse Practitioner] - 2 weeks (Please follow-up with Aurea Walters on at 9:45A.M. If you have any questionsor need to reschedule. Please call ) Discharge Diet: Diabetic Discharge Activity: Resume usual activity Patient Instructions: Ciprofloxacin (By mouth), Coronary Artery Disease (DC), Urinary Tract Infection in Women (DC), Hypotension (DC), Near Syncope (DC), CHF Stoplight, Opioid Safety Discharge Attestations Time Spent in Discharge Care*: less than 30 min Specific Discharge Activities: educating patient, educating and/or supporting family/caregiver, discussing with pcp/other providers, discussing with caseworker intake/social workers/dc planners, documenting/other paperwork and evaluating patient/reviewing data Status at Discharge: Cognitive status at discharge: mildly impaired cognition , Behavioral status at discharge: cooperative , Quality Metrics Clinical Quality Measures During this hospital stay, did patient experience: None Coding Level of Care Code Acute Chg FW DC note Exam Detailed Diagnoses Syncope R55 Chest pain R07.9 Demand ischemia I24.8 Hypotension I95.9 Urinary tract infection N39.0
--- NOTE | 2021-08-25 13:10 | P.DS_ITS ---
Discharge Providers Date of Admission: 08/24/21 23:33 Date of Discharge: August 25, 2021 Attending Provider at Admission: Lj Brooks Attending Provider at Discharge: Emeterio Prather MD Primary Care Provider: KATHY Stewart Diagnoses at Discharge Discharge Diagnosis (1) Syncope: Status: Acute (2) (HFpEF) heart failure with preserved ejection fraction: Status: Acute (3) CAD (coronary artery disease): Status: Acute Qualifiers: Coronary Disease-Associated Artery/Lesion type: [place] artery [place] vs. transplanted heart: [place] heart Associated angina: without angina Qualified Code(s): I25.10 - Atherosclerotic heart disease of [place] coronary artery without angina pectoris (4) Essential hypertension: Status: Acute Reason for Visit Reason for Visit: GENERAL WEAKNESS Discharge Data Data Completed and Pending: Completed Studies During Hospitalization Category Date Time Status CT angio chest PE protcl [id number] Urge nt Cat Scan 08/24/21 21:[address] head wo con* 7 [id number] Urgent Cat Scan 08/24/21 15:44 Completed XR chest 1V calin ble [id number] Stat Exams 08/24/21 15:18 Completed Pending at discharge Category Date Time Status Blood Culture Sta t Lab 08/24/21 20:17 Results Urine Culture Sta t Lab 08/24/21 18:33 Received Labs from last 24 hours 08/25/21 08/25/21 08/25/21 11:08 03:23 03:23 WBC RBC Hgb Hct MCV MCH MCHC RDW Plt Count MPV Neut % (Auto) Lymph % (Auto) [place] % (Auto) Eos % (Auto) Baso % (Auto) Neut # (Auto) Lymph # (Auto) [place] # (Auto) Eos # (Auto) Baso # (Auto) Nucleated RBC % (a uto) Nucleated RBCs # PT INR APTT D-Dimer Specimen Type Sample Site ABG pH ABG pCO2 ABG pO2 ABG HCO3 ABG O2 Saturation ABG Base Excess Freddy Test A-a O2 Gradient Hematocrit Hgb O2 Saturation Carboxyhemoglobin Methemoglobin Total Hemoglobin Ionized Calcium O2 Delivery Device O2 Liters/Min Fish Hatchery Supervisor ID Sodium 134 L Potassium 4.0 Chloride 95 L Carbon Dioxide 24 Anion Gap 19.0 BUN 15 Creatinine 0.9 GFR Calculation 65.2 L Glucose 381 H POC Glucose 378 H Calculated Osmolal ity 295 Lactic Acid Calcium 9.2 Magnesium 1.7 Total Bilirubin AST ALT Alkaline Phosphata se Troponin T Baselin e Troponin T 120 Min [place] Troponin T Troponin T Hi Sens 6Hr Troponin T Hi Sens 6Hr [place] NT-Pro-B Natriuret Pep Total Protein Albumin Globulin Triglycerides 160 H Cholesterol 215 H LDL Cholesterol, C alc 141 H HDL Cholesterol 42 L LDL/HDL Ratio 3.36 H Cholesterol/HDL Ra grace 5.12 H Urine Color Urine Appearance Urine pH Ur Specific Gravit y Urine Protein Urine Glucose (UA) Urine Ketones Urine Blood Urine Nitrate Urine Bilirubin Urine Urobilinogen Ur Leukocyte Maria Elena ase Urine RBC Urine WBC Ur Squamous Epith Cells Amorphous Sediment Urine Bacteria Urine Yeast 08/25/21 08/24/21 08/24/21 03:23 22:59 20:17 WBC 13.4 H RBC 4.35 Hgb 10.9 L Hct 34.3 L MCV 78.9 L D MCH 25.1 L MCHC 31.8 D RDW 16.1 H Plt Count 535 H MPV 9.7 Neut % (Auto) 85.7 Lymph % (Auto) 11.9 [place] % (Auto) 1.3 Eos % (Auto) 0.1 Baso % (Auto) 0.1 Neut # (Auto) 11.47 H Lymph # (Auto) 1.6 [place] # (Auto) 0.2 Eos # (Auto) 0.0 Baso # (Auto) 0.0 Nucleated RBC % (a uto) 0 Nucleated RBCs # 0.0 PT INR APTT D-Dimer Specimen Type Sample Site ABG pH ABG pCO2 ABG pO2 ABG HCO3 ABG O2 Saturation ABG Base Excess Freddy Test A-a O2 Gradient Hematocrit Hgb O2 Saturation Carboxyhemoglobin Methemoglobin Total Hemoglobin Ionized Calcium O2 Delivery Device O2 Liters/Min Fish Hatchery Supervisor ID Sodium Potassium Chloride Carbon Dioxide Anion Gap BUN Creatinine GFR Calculation Glucose POC Glucose Calculated Osmolal ity Lactic Acid 1.3 Calcium Magnesium Total Bilirubin AST ALT Alkaline Phosphata se Troponin T Baselin e Troponin T 120 Min [place] Troponin T Troponin T Hi Sens 6Hr 117.5 H Troponin T Hi Sens 6Hr [place] -19.5 L NT-Pro-B Natriuret Pep Total Protein Albumin Globulin Triglycerides Cholesterol LDL Cholesterol, C alc HDL Cholesterol LDL/HDL Ratio Cholesterol/HDL Ra grace Urine Color Urine Appearance Urine pH Ur Specific Gravit y Urine Protein Urine Glucose (UA) Urine Ketones Urine Blood Urine Nitrate Urine Bilirubin Urine Urobilinogen Ur Leukocyte Maria Elena ase Urine RBC Urine WBC Ur Squamous Epith Cells Amorphous Sediment Urine Bacteria Urine Yeast 08/24/21 08/24/21 08/24/21 20:17 20:17 18:33 WBC RBC Hgb Hct MCV MCH MCHC RDW Plt Count MPV Neut % (Auto) Lymph % (Auto) [place] % (Auto) Eos % (Auto) Baso % (Auto) Neut # (Auto) Lymph # (Auto) [place] # (Auto) Eos # (Auto) Baso # (Auto) Nucleated RBC % (a uto) Nucleated RBCs # PT 13.20 INR 0.97 APTT 38.8 H D-Dimer 1.43 H Specimen Type Sample Site ABG pH ABG pCO2 ABG pO2 ABG HCO3 ABG O2 Saturation ABG Base Excess Freddy Test A-a O2 Gradient Hematocrit Hgb O2 Saturation Carboxyhemoglobin Methemoglobin Total Hemoglobin Ionized Calcium O2 Delivery Device O2 Liters/Min Fish Hatchery Supervisor ID Sodium Potassium Chloride Carbon Dioxide Anion Gap BUN Creatinine GFR Calculation Glucose POC Glucose Calculated Osmolal ity Lactic Acid Calcium Magnesium Total Bilirubin AST ALT Alkaline Phosphata se Troponin T Baselin e Troponin T 120 Min [place] 130.1 H Delta Troponin T -6.9 L Troponin T Hi Sens 6Hr Troponin T Hi Sens 6Hr [place] NT-Pro-B Natriuret Pep Total Protein Albumin Globulin Triglycerides Cholesterol LDL Cholesterol, C alc HDL Cholesterol LDL/HDL Ratio Cholesterol/HDL Ra grace Urine Color [place] Urine Appearance Clear Urine pH 5 Ur Specific Gravit y 1.020 Urine Protein Trace Urine Glucose (UA) Norm Urine Ketones 1+ H Urine Blood Neg Urine Nitrate Negative Urine Bilirubin 1+ H Urine Urobilinogen Norm Ur Leukocyte Maria [place] ase 2+ H Urine RBC 0-4 H Urine WBC >100 H Ur Squamous Epith Cells 0-4 H Amorphous Sediment Not Reportable Urine Bacteria 1+ H Urine Yeast 3+ H 08/24/21 08/24/21 08/24/21 17:19 17:09 17:09 WBC RBC Hgb Hct MCV MCH MCHC RDW Plt Count MPV Neut % (Auto) Lymph % (Auto) [place] % (Auto) Eos % (Auto) Baso % (Auto) Neut # (Auto) Lymph # (Auto) [place] # (Auto) Eos # (Auto) Baso # (Auto) Nucleated RBC % (a uto) Nucleated RBCs # PT INR APTT D-Dimer Specimen Type Arterial Sample Site Radial, left ABG pH 7.35 ABG pCO2 45.5 H ABG pO2 59.8 L ABG HCO3 25.1 ABG O2 Saturation 91.8 ABG Base Excess -0.8 Freddy Test Pos A-a O2 Gradient 4.5 L Hematocrit 33.2 L Hgb O2 Saturation 86.3 L Carboxyhemoglobin 5.4 Methemoglobin 0.7 Total Hemoglobin 10.8 L Ionized Calcium 1.2 O2 Delivery Device Nc O2 Liters/Min 2.5 Fish Hatchery Supervisor ID Gd Sodium 133.0 130 L Potassium 4.4 4.8 Chloride 97 L Carbon Dioxide 17 L Anion Gap 20.8 H BUN 14 Creatinine 1.0 H GFR Calculation 57.8 L Glucose 211.0 H 193 H POC Glucose Calculated Osmolal ity 276 L Lactic Acid Calcium 8.6 Magnesium Total Bilirubin 0.2 AST 22 ALT 12 Alkaline Phosphata se 92 Troponin T Baselin e 137 H* Troponin T 120 Min [place] Troponin T Troponin T Hi Sens 6Hr Troponin T Hi Sens 6Hr [place] NT-Pro-B Natriuret Pep 356 H Total Protein 6.4 L Albumin 3.0 L Globulin 3.4 Triglycerides Cholesterol LDL Cholesterol, C alc HDL Cholesterol LDL/HDL Ratio Cholesterol/HDL Ra grace Urine Color Urine Appearance Urine pH Ur Specific Gravit y Urine Protein Urine Glucose (UA) Urine Ketones Urine Blood Urine Nitrate Urine Bilirubin Urine Urobilinogen Ur Leukocyte Maria Elena ase Urine RBC Urine WBC Ur Squamous Epith Cells Amorphous Sediment Urine Bacteria Urine Yeast 08/24/21 17:09 WBC 18.6 H RBC 4.16 Hgb 10.7 L Hct 37.1 MCV 89.2 MCH 25.7 L MCHC 28.8 L RDW 16.7 H Plt Count 449 H MPV 9.3 Neut % (Auto) 58.8 Lymph % (Auto) 21.2 [place] % (Auto) 7.8 Eos % (Auto) 10.6 Baso % (Auto) 0.6 Neut # (Auto) 10.92 H Lymph # (Auto) 3.9 [place] # (Auto) 1.5 H Eos # (Auto) 2.0 H Baso # (Auto) 0.1 Nucleated RBC % (a uto) 0 Nucleated RBCs # 0.0 PT INR APTT D-Dimer Specimen Type Sample Site ABG pH ABG pCO2 ABG pO2 ABG HCO3 ABG O2 Saturation ABG Base Excess Freddy Test A-a O2 Gradient Hematocrit Hgb O2 Saturation Carboxyhemoglobin Methemoglobin Total Hemoglobin Ionized Calcium O2 Delivery Device O2 Liters/Min Fish Hatchery Supervisor ID Sodium Potassium Chloride Carbon Dioxide Anion Gap BUN Creatinine GFR Calculation Glucose POC Glucose Calculated Osmolal ity Lactic Acid Calcium Magnesium Total Bilirubin AST ALT Alkaline Phosphata se Troponin T Baselin e Troponin T 120 Min [place] Troponin T Troponin T Hi Sens 6Hr Troponin T Hi Sens 6Hr [place] NT-Pro-B Natriuret Pep Total Protein Albumin Globulin Triglycerides Cholesterol LDL Cholesterol, C alc HDL Cholesterol LDL/HDL Ratio Cholesterol/HDL Ra grace Urine Color Urine Appearance Urine pH Ur Specific Gravit y Urine Protein Urine Glucose (UA) Urine Ketones Urine Blood Urine Nitrate Urine Bilirubin Urine Urobilinogen Ur Leukocyte Maria Elena ase Urine RBC Urine WBC Ur Squamous Epith Cells Amorphous Sediment Urine Bacteria Urine Yeast Vitals: Last Vital Signs Temp 98.6 F 08/25/21 03:53 Pulse 102 H 08/25/21 09:33 Resp 16 08/25/21 11:36 BP 156/87 08/25/21 08:50 Pulse Ox 94 08/25/21 11:36 Discharge Plan Discharge Patient Disposition: Home Condition: Stable Prescriptions: Continued hydromorphone 4 mg tablet 4 mg PO QID PRN (Reason: pain) 30 Days Qty: 120 RF: 0 cyclobenzaprine 10 mg tablet 10 mg PO TID PRN (Reason: muscle spasm) 30 Days Qty: 90 RF: 1 pregabalin [Lyrica] 150 mg capsule 150 mg PO BID@0800,1800 30 Days Qty: 60 RF: 1 ergocalciferol (vitamin D2) 1,250 mcg (50,000 unit) capsule 1,250 mcg PO Q7D Qty: 4 RF: 2 (DME) pen needle, diabetic [Comfort EZ Pen [place]] 31 gauge x 5/16 needle See Rx Instructions .Route Qty: 100 RF: 6 Levemir FlexTouch U-100 Insuln 100 unit/mL (3 mL) insulin pen 10 unit SUBCUT DAILY@08 Qty: 15 RF: 2 Repatha SureClick 140 mg/mL pen injector 140 mg SUBCUT .[id number] Qty: 2 RF: 5 albuterol sulfate [Ventolin HFA] 90 mcg/actuation HFA aerosol inhaler 2 puff INHALATION QID PRN (Reason: shortness of breath or wheezing) 30 Days Qty: 6.7 RF: 2 nitroglycerin 0.4 mg tablet, sublingual See Rx Instructions .ROUTE .COMPLEX Qty: 25 RF: 3 insulin aspart U-100 [Novolog Flexpen U-100 Insulin] 100 unit/mL (3 mL) insulin pen 5 unit SUBCUT TID Qty: 15 RF: 1 oxybutynin chloride 5 mg tablet extended release 24hr 5 mg PO DAILY Qty: 30 RF: 2 nitrofurantoin monohyd/m-cryst 100 mg capsule 100 mg PO Q12H RF: 0 furosemide [Lasix] 40 mg tablet 40 mg PO BID@0800,2100 PRN (Reason: Edema) Qty: 60 RF: 12 midodrine 5 mg tablet 5 mg PO BID@0800,2100 Qty: 60 RF: 5 quetiapine 100 mg tablet 100 mg PO .qhs Qty: 30 RF: 2 atorvastatin 80 mg tablet 80 mg PO DAILY Qty: 30 RF: 2 Brilinta 90 mg tablet 90 mg PO BID@08,21 Qty: 180 RF: 1 duloxetine 60 mg capsule, delayed rel sprinkle 60 mg PO DAILY@08 30 Days Qty: 30 RF: 0 losartan 50 mg tablet 50 mg PO DAILY@0800 Qty: 30 RF: 6 isosorbide mononitrate 60 mg tablet extended release 24 hr 60 mg PO BID@08,21 Qty: 180 RF: 0 (DME) pen needle, diabetic [Comfort EZ Pen [place]] 32 gauge x 5/32 needle See Rx Instructions .Route Qty: 100 RF: 2 aspirin [Adult Aspirin Regimen] 81 mg tablet,delayed release (DR/EC) 81 mg PO DAILY Qty: 30 RF: 4 acetaminophen 325 mg Tablet 650 mg PO Q6H PRN (Reason: Mild/Mod Pain Or Temp >/= 101) Qty: 30 RF: 0 Discharge Orders: Discharge Order (Routine); Ordered 08/25/21 Ordered By: Emeterio Prather Referrals: Darrell Jerome MD [Physician] - 1 month Aurea Walters FNP [Nurse Practitioner] - 2 weeks Discharge Diet: Diabetic Discharge Activity: Resume usual activity Patient Instructions: Opioid Safety Discharge Attestations Status at Discharge: Cognitive status at discharge: mildly impaired cognition , Behavioral status at discharge: cooperative , Coding Level of Care Code Acute Chg FW DC note Diagnoses Syncope R55 (HFpEF) heart failure with preserved ejection fraction I50.30 CAD (coronary artery disease) I25.10 Coronary Disease-Associated Artery/Lesion type: [place] artery [place] vs. transplanted heart: [place] heart Associated angina: without angina Essential hypertension I10
--- NOTE | 2021-08-25 13:34 | PM.PN ---
Subjective Subjective: Interval history: Patient denies any chest pain and thinks her SOB has improved some. She denies any lightheadedness or dizziness when ambulating to the restroom. She is requesting to be discharged again and already has her ride here. Medications: Reviewed: Yes Vitals/I&O/Wt Last Vital Signs Temp 98.6 F 08/25/21 03:53 Pulse 102 H 08/25/21 09:33 Resp 16 08/25/21 11:36 BP 156/87 08/25/21 08:50 Pulse Ox 94 08/25/21 11:36 08/24/21 08/25/21 08/25/21 22:59 06:59 14:59 Intake Total 200 / 200 250 / 450 1000 / 1000 Balance 200 / 200 250 / 450 1000 / 1000 Weight last 48 hrs Weight 233 lb 12.8 oz Weight 210 lb Physical Exam Narrative: EXAM NARRATIVE: GENERAL:obese woman sitting in bed in no acute distress HEENT:Pupils equal round reactive to light. No pallor or icterus. NECK: No JVD. No carotid bruit. CARDIOVASCULAR SYSTEM: S1-S2 regular. No murmur or gallops. RESPIRATORY SYSTEM: Chest clear to auscultation. No wheezes rhonchi or rubs heard. No use of accessory muscles. ABDOMEN: Soft, nontender and nondistended. Normal bowel sounds present. EXTREMITIES: No cyanosis or clubbing. trace-1+ right>L LE edema . No signs of chronic venous insufficiency. Right groin access site with no bruising or hematoma BREAD WRAPPER OPERATOR: Patient is alert oriented ?3. No focal neurological deficits. SKIN: Normal turgor and temperature. Data : 08/25/21 03:23 08/25/21 03:23 Micro: Microbiology 08/24/21 20:17 Blood Culture - Preliminary Blood SPECIMEN COLLECTED 08/24/21 20:17 Blood Culture - Preliminary Blood SPECIMEN COLLECTED A&P Assessment and plan (1) Syncope: Near syncopal episode. She has labile hypertension, probably BP drop could have contributed to it. -CT head negative. No acute PE on CT chest. -Being treated for UTI. Status: Resolved (2) (HFpEF) heart failure with preserved ejection fraction: -mildly decompensated on arrival. -lasix 40 mg IV x 1 in ER. UO not documented. saturating 94% on RA Status: Acute (3) CAD (coronary artery disease): -concern for stent thrombosis given recent stent. -However, no chest pain; troponin has trended down. EKG showed sinus rhythm low QRS voltage in precordial leads and possible old inferior NE. Non specific ST-T wave changes. No dynamic changes on subsequent EKGs. -received lovenox one dose in ER. -3rd set of troponin trending down. She has remained chest pain free. She was advised to maintain BP/HR log x 1-2 weeks. If BP running low advised to decrease afternoon dose of lasix and if SOB gets worse may use 60 mg lasix in morning and 40 mg in afternoon as needed. -f/u in 2 weeks in [facility] for med adjustment and repeat BMP, Mg, BNP. Status: Acute Qualifiers: Coronary Disease-Associated Artery/Lesion type: [place] artery [place] vs. transplanted heart: [place] heart Associated angina: without angina Qualified Code(s): I25.10 - Atherosclerotic heart disease of [place] coronary artery without angina pectoris (4) Essential hypertension: Status: Acute Additional A&P Information Elevated troponin: likely type 2 NSTEMI d/t some hypotension. UTI Obesity Mixed hyperlipidemia IDDM-2 Thank you for allowing me to participate in patient's care. Please feel free to call with questions or concerns. Attestations Medical Necessity Statement*: stable to be discharged Time Spent in Patient Care: 16 - 35 minutes (>than 50% of time spent in counselling and/or direct pt care on unit). Coding Level of Care Code Acute Heel Turner for Nahed Fwd Diagnoses Syncope R55 (HFpEF) heart failure with preserved ejection fraction I50.30 CAD (coronary artery disease) I25.10 Coronary Disease-Associated Artery/Lesion type: [place] artery [place] vs. transplanted heart: [place] heart Associated angina: without angina Essential hypertension I10
--- NOTE | 2021-08-25 14:30 | PC.NURSE ---
discharge instructions given and explained.pt verb understanding of instructions.discharged via w/c to exit at this time.step-father to drive pt home.
== END 2021-08-25 14:33 | disposition home or self-care (01) ==
LOC: ER 17:32 → CSU 23:45
PROVIDERS: Physician Assistant; Admitting Provider Internal Medicine; Emergency Provider Emergency Medicine; PCP Nurse Practitioner Family; Visit Provider Internal Medicine
DX: E87.1 Hypo-osmolality and hyponatremia (principal); I95.9 Hypotension, unspecified; R55 Syncope and collapse; R07.9 Chest pain, unspecified; I24.8 Other forms of acute ischemic heart disease; E86.0 Dehydration; N17.9 Acute kidney failure, unspecified; N39.0 Urinary tract infection, site not specified; I25.10 Atherosclerotic heart disease of native coronary artery without angina pectoris; D64.9 Anemia, unspecified; J44.9 Chronic obstructive pulmonary disease, unspecified; I11.0 Hypertensive heart disease with heart failure; I50.9 Heart failure, unspecified; E11.40 Type 2 diabetes mellitus with diabetic neuropathy, unspecified; E78.2 Mixed hyperlipidemia; E66.9 Obesity, unspecified; Z68.37 Body mass index [BMI] 37.0-37.9, adult; G89.4 Chronic pain syndrome; Z99.81 Dependence on supplemental oxygen; Z79.891 Long term (current) use of opiate analgesic; Z79.4 Long term (current) use of insulin
CPT/HCPCS: 36415; 36416; 36600; 70450; 71045; 71275; 80048; 80051; 80053; 80061; 81001; 82330; 82805; 82962; 83605; 83735; 83880; 84484; 85025; 85378; 85610; 85730; 87040; 87086; 93005; 96372; 96374; 96375; 97161; 97165; 99285; G0378; J0744; J1650; J1815; J1940; J2270; J2930; J7030; Q9967

== ENCOUNTER 2021-08-26 | Outpatient (CLI) | payer MEDICARE, MEDICAID, SELFPAY | END 2021-08-26 00:01 | disposition home or self-care (01) | LOC: SPT 04-13 09:35 | PROVIDERS: PCP Nurse Practitioner Family; Referring Provider Specialist; Visit Provider Specialist | DX: Z46.89 Encounter for fitting and adjustment of other specified devices (principal); R20.2 Paresthesia of skin | CPT/HCPCS: L3908 ==

== ENCOUNTER → 2021-08-26 13:36 | Outpatient (BNVA) | payer MEDICARE, MEDICAID, SELFPAY | PROVIDERS: PCP Nurse Practitioner Family; Referring Provider Nurse Practitioner Family; Visit Provider Specialist | DX: G56.01 Carpal tunnel syndrome, right upper limb (principal) | CPT/HCPCS: 73110 ==

== ENCOUNTER 2021-09-12 15:27 | Inpatient (IN) | payer MEDICARE, MEDICAID, SELFPAY ==
[2021-09-12 15:35] VITALS: BP 136/81; PULSE 105; RESP 22; TEMP 37.2; O2SAT 94; BMI 35.2
--- NOTE | 2021-09-12 15:40 | W.ED.GENADLT ---
HPI - General Adult General: Chief complaint: Neuro Symptoms/Deficit Stated complaint: WEAKNESS, FALL, CARDIAC STENT ONE WEEK AGO Time Seen by Provider: 09/12/21 15:31 History of Present Illness: HPI narrative: 56 yo female presents emergency room with extreme shortness of breath has been increasing over the last several days thick purulent sputum is very tenacious. She has a history of COPD and usually requires 2 L by nasal cannula additionally she has a history of congestive heart failure and diabetes mellitus. Oxygen saturations reported to be 84% on room air in the field she has known history of coronary artery disease and has had drug-eluting stents placed just last month. She has had fevers and chills. She is also complaining of some right hip pain which is been chronic but exacerbated by a fall earlier today. The nurses note states possible stroke and right arm and leg symptoms. However the patient does not recall report any of this to me. Her main complaint is fatigue and excessive shortness of breath and cough difficulty breathing. She is complaining of right hip pain from a fall she had prior to coming in she denies striking her head and denies loss consciousness. Onset (ago): minute(s) Location: chest Severity: severe Relieving factors: none Exacerbating factors: other (Activity and cough) Associated symptoms: Reports confusion, cough, decreased appetite, dyspnea, fevers/chills, malaise, nausea, short of breath and weakness; Deny chest pain, diaphoresis, headache(s), rash, palpitations, seizures, syncope or vomiting Treatments prior to arrival: other (Oxygen) Review of Systems Const: Reports: malaise; Denies: diaphoresis ENMT: Reports: nasal discharge and nasal congestion; Denies: throat pain or ear or mastoid pain Card: Denies: chest pain, palpitations or syncope Resp: Reports: dyspnea, productive cough, wheezing and chest congestion GI: Reports: nausea; Denies: vomiting : Denies: flank pain, difficulty voiding, dysuria, urinary frequency or urinary urgency Skin/Breast: Denies: rash Neuro: Reports: confusion; Denies: headache(s) FOR[facility]LY [facility], [facility] ED PFSH: Medical History (HFpEF) heart failure with preserved ejection fraction Acute exacerbation of CHF (congestive heart failure) Acute kidney injury Anemia CAD (coronary artery disease) Candidiasis of vagina Chest pain Chest pain, midsternal Chronic knee pain Chronic left-sided low back pain Chronic obstructive pulmonary disease, unspecified Chronic pain of left knee Compression fracture of L2 lumbar vertebra COPD (chronic obstructive pulmonary disease) Coronary artery disease due to type 2 diabetes mellitus Current every day smoker CVA (cerebral vascular accident) Dehydration Demand ischemia Diabetes type 2, uncontrolled Dyslipidemia Dyspnea Elevated troponin Encounter for long-term opiate analgesic use Essential hypertension Exposure to COVID-19 virus Fibromyalgia, primary History of CVA (cerebrovascular accident) History of hypoglycemic coma Hyperlipidemia, mixed Hypotension Insomnia Intervertebral disc disorder of lumbar region with myelopathy Leukocytosis Low back pain radiating to both legs Lumbosacral spondylosis without myelopathy Neuropathy NSTEMI (non-ST elevated myocardial infarction) Thought to be secondary to plaque rupture. Angiogram July 04 no flow-limiting lesions, or restenosis of previous stent from April 2020 Obesity (BMI 35.0-39.9 without comorbidity) Opioid contract exists Osteoarthritis of left knee Osteoarthritis of spine at multiple levels Pericardial effusion Peripheral sensory neuropathy due to type 2 diabetes mellitus Pneumonia Pressure ulcer Prosthetic joint infection Right hip pain Septic arthritis of knee, left Syncope Type 2 diabetes mellitus with diabetic autonomic (poly)neuropathy Unstable angina Urinary tract infection Vitamin D deficiency Surgical History History of arthroscopic surgery of elbow BILATERAL History of coronary angiogram Angiogram April 2020 with 90% circumflex lesion, drug-eluting stent placed by Dr. Jerome S/p bilateral carpal tunnel release S/P hysterectomy S/P knee surgery RIGHT S/P lumbar fusion DR. Shreya ZAYAS IN [place], [place] L4-L5, L5-S1 Status post left knee replacement Status post lumbar laminectomy Family History Other CAD (coronary artery disease) Cancer Diabetes Social History Second hand smoke exposure: Yes Smoking risk assessment/counseling performed?: Yes Alcohol intake: former Desire information about alcohol rehabilitation?: No Counseling given: No Desire information about substance/drug rehabilitation?: No Counseling given: No Caregiver/support person: No Lives independently: Yes Household members: family and other Details: son Housing: Manufactured/Mobile home Marital status: Unknown Marital status details: She and son state she is not service: No Current occupational status: unemployed Pets and animals: Yes History of recent travel: No Current gender identity: Female Physical Exam Const: GENERAL APPEARANCE: cooperative and comfortable ORIENTATION/CONSCIOUSNESS: Yes awake, Yes oriented to person, Yes oriented to place and Yes oriented to time HENMT: COMMON NORMALS: normocephalic, atraumatic and hearing grossly normal bilaterally HEAD & SCALP: normocephalic and atraumatic Neck/C-Spine: COMMON NORMALS: full ROM, no lymphadenopathy, supple and no JVD Lymph: LYMPHATIC: no lymphadenopathy noted and no lymphedema noted Resp: AUSCULTATION: rhonchi right upper and right lower, wheezes and diminished lung sounds Cardio: COMMON NORMALS: no JVD, regular rate, regular rhythm and No murmurs present (Cardio) RATE: regular rate RHYTHM: regular rhythm GI: COMMON NORMALS: Soft to palpation and No hepatosplenomegaly present AUSCULTATION: Yes normoactive bowel sounds PALPATION: Yes Soft to palpation, No Tenderness to palpation present (GI), No Guarding due to palpation present (GI) and Yes No hepatosplenomegaly present Extremity: COMMON NORMALS: normal to inspection, capillary refill normal, no clubbing, cyanosis or edema, no calf tenderness and no pedal edema OTHER: Full range of motion the right hip with internal extra rotation flexion extension without significant pain Neuro: SENSORIUM/ORIENTATION: Yes oriented to person, Yes oriented to place and Yes oriented to time Skin: COMMON NORMALS: no rashes or lesions noted GENERAL SKIN EXAM: no rashes or lesions noted Course Vital Signs: Vital signs: Vital Signs Temperature 97.9 F 09/15/21 04:00 Pulse Rate 79 09/15/21 04:00 Respiratory Rate 15 09/15/21 05:36 Blood Pressure 130/78 09/15/21 04:00 Pulse Oximetry 93 09/15/21 04:00 MDM - General Adult MDM Narrative: Medical decision making narrative: Chest x-ray shows pneumonia as well as clinical presentation. NIH score is 2 days of which is more accountable to her hypoxia and acute infectious process. There is no evidence of a stroke. Labs and imaging reviewed with the patient. Admitted for pneumonia. Lab Data: Labs: Lab Results 09/12/21 09/12/21 09/12/21 16:04 16:20 16:20 WBC RBC Hgb Hct MCV MCH MCHC RDW Plt Count MPV Neut % (Auto) Lymph % (Auto) [place] % (Auto) Eos % (Auto) Baso % (Auto) Neut # (Auto) Lymph # (Auto) [place] # (Auto) Eos # (Auto) Baso # (Auto) Nucleated RBC % (a uto) Nucleated RBCs # Specimen Type Sample Site ABG pH ABG pCO2 ABG pO2 ABG HCO3 ABG O2 Saturation ABG Base Excess Freddy Test A-a O2 Gradient Hematocrit Hgb O2 Saturation Carboxyhemoglobin Methemoglobin Total Hemoglobin Ionized Calcium O2 Delivery Device O2 Liters/Min FiO2 Engine Lathe Set Up Operator ID Sodium Potassium Chloride Carbon Dioxide Anion Gap BUN Creatinine GFR Calculation Glucose Calculated Osmolal ity Lactic Acid 2.8 mmol/L H mmol /L (0.5-2.2) Calcium Total Bilirubin AST ALT Alkaline Phosphata se Total Protein Albumin Globulin Urine Color Urine Appearance Urine pH Ur Specific Gravit y Urine Protein Urine Glucose (UA) Urine Ketones Urine Blood Urine Nitrate Urine Bilirubin Urine Urobilinogen Ur Leukocyte Maria Elena ase Urine RBC Urine WBC Ur Squamous Epith Cells Amorphous Sediment Urine Bacteria Urine Mucus Urine Yeast Serum Ketones Negative (Negative) SARS-CoV-2 Ag (Rap id) Negative (Negative) 09/12/21 09/12/21 09/12/21 16:20 16:20 16:58 WBC 27.8 10^3/uL H 10 ^3/uL (4.0-10.0) RBC 4.29 10^6/uL 10^6 /uL (4.1-5.3) Hgb 10.5 g/dL L g/dL (11.5-15.3) Hct 33.2 % L % (37.0-47.0) MCV 77.4 fl L fl (81-99) MCH 24.5 pg L pg (28.0-34.0) MCHC 31.6 g/dL g/dL (30.0-36.0) RDW 16.3 % H % (12.1-15.1) Plt Count 591 10^3/cmm H 10 ^3/cmm (130-400) MPV 9.6 fL fL (7.4-10.4) Neut % (Auto) 78.7 % % Lymph % (Auto) 9.2 % % [place] % (Auto) 8.7 % % Eos % (Auto) 1.4 % % Baso % (Auto) 0.6 % % Neut # (Auto) 21.92 10^3/uL H 1 0^3/uL (1.8-7.7) Lymph # (Auto) 2.6 10^3/uL 10^3/ uL (0.8-4.8) [place] # (Auto) 2.4 10^3/uL H 10^ 3/uL (0.2-0.9) Eos # (Auto) 0.4 10^3/uL 10^3/ uL (0.0-0.8) Baso # (Auto) 0.2 10^3/uL H 10^ 3/uL (0.0-0.1) Nucleated RBC % (a uto) 0.1 % % Nucleated RBCs # 0.0 /100WBC /100W BC Specimen Type Arterial Sample Site Radial, left ABG pH 7.47 H (7.35-7.45) ABG pCO2 37.2 mmHg mmHg (35-45) ABG pO2 56.4 mmHg L mmHg (80.0-100.0) ABG HCO3 26.8 mmol/L H mmo l/L (22-26) ABG O2 Saturation 90.8 ABG Base Excess 2.9 mmol/L H mmol /L (-2.0-2.0) Freddy Test Pos A-a O2 Gradient 16.2 mmHg H mmHg (5-10) Hematocrit 32.3 % L % (37-47) Hgb O2 Saturation 88.4 % L % (95-100) Carboxyhemoglobin 2.6 %THgb %THgb (0.4-20.1) Methemoglobin 0.1 % L % (0.4-1.5) Total Hemoglobin 10.6 g/dL L g/dL (12-16) Ionized Calcium 1.2 mmol/L mmol/L (1.1-1.4) O2 Delivery Device Nc O2 Liters/Min 3.0 % % FiO2 32.0 % % Engine Lathe Set Up Operator ID Ed Sodium 131 mmol/L L mmol /L 133.0 mmol/L mmol /L (136-145) (131-143) Potassium 3.4 mmol/L L mmol /L 3.5 mmol/L mmol/L (3.5-5.1) (3.5-5.0) Chloride 91 mmol/L L mmol/ L (98-107) Carbon Dioxide 24 mmol/L mmol/L (22-29) Anion Gap 19.4 H (5-19) BUN 16 mg/dL mg/dL (6-20) Creatinine 1.0 mg/dL H mg/dL (0.5-0.9) GFR Calculation 57.8 mL/min L mL/ min (90-130) Glucose 306 mg/dL H mg/dL 322.0 mg/dL H mg/ dL (65-115) (70-115) Calculated Osmolal ity 285 mOsm/kg mOsm/ kg (285-295) Lactic Acid Calcium 9.3 mg/dL mg/dL (8.5-10.5) Total Bilirubin 0.4 mg/dL mg/dL (0.15-1.2) AST 78 U/L H U/L (0-32) ALT 28 U/L U/L (0-33) Alkaline Phosphata se 123 IU/L H IU/L (35-105) Total Protein 7.1 g/dL g/dL (6.6-8.7) Albumin 3.4 g/dL L g/dL (3.5-5.2) Globulin 3.7 g/dL g/dL (1.3-4.6) Urine Color Urine Appearance Urine pH Ur Specific Gravit y Urine Protein Urine Glucose (UA) Urine Ketones Urine Blood Urine Nitrate Urine Bilirubin Urine Urobilinogen Ur Leukocyte Maria Elena ase Urine RBC Urine WBC Ur Squamous Epith Cells Amorphous Sediment Urine Bacteria Urine Mucus Urine Yeast Serum Ketones SARS-CoV-2 Ag (Rap id) 09/12/21 18:01 WBC RBC Hgb Hct MCV MCH MCHC RDW Plt Count MPV Neut % (Auto) Lymph % (Auto) [place] % (Auto) Eos % (Auto) Baso % (Auto) Neut # (Auto) Lymph # (Auto) [place] # (Auto) Eos # (Auto) Baso # (Auto) Nucleated RBC % (a uto) Nucleated RBCs # Specimen Type Sample Site ABG pH ABG pCO2 ABG pO2 ABG HCO3 ABG O2 Saturation ABG Base Excess Freddy Test A-a O2 Gradient Hematocrit Hgb O2 Saturation Carboxyhemoglobin Methemoglobin Total Hemoglobin Ionized Calcium O2 Delivery Device O2 Liters/Min FiO2 Engine Lathe Set Up Operator ID Sodium Potassium Chloride Carbon Dioxide Anion Gap BUN Creatinine GFR Calculation Glucose Calculated Osmolal ity Lactic Acid Calcium Total Bilirubin AST ALT Alkaline Phosphata se Total Protein Albumin Globulin Urine Color Yellow (Yellow) Urine Appearance Clear (CLEAR) Urine pH 5 (5-7) Ur Specific Gravit y 1.025 (1.005-1.030) Urine Protein Neg (Negative) Urine Glucose (UA) 4+ H (Normal) Urine Ketones Negative (Negative) Urine Blood 2+ H (Negative) Urine Nitrate Positive H (Negative) Urine Bilirubin Neg (Negative) Urine Urobilinogen Norm mg/dL mg/dL (Negative) Ur Leukocyte Maria Elena ase Negative (Negative) Urine RBC 5-10 /hpf H /hpf (0-2) Urine WBC 0-4 /hpf H /hpf (0-5) Ur Squamous Epith Cells 0-4 /hpf H /hpf (0-5) Amorphous Sediment Not Reportable Urine Bacteria 3+ /hpf H /hpf (NONE) Urine Mucus 1+ /hpf /hpf Urine Yeast Trace /hpf /hpf Serum Ketones SARS-CoV-2 Ag (Rap id) Discharge Plan Discharge Patient Disposition: Admitted As Inpatient Admit Provider: Deanne Delgadillo Clinical Impression: Pneumonia, Sepsis, COPD exacerbation, Acute and chronic respiratory failure with hypoxia Condition: Stable Coding Level of Care Code ED Birthing Nurse for Subhashg Ottoniel NIH stroke score NIHSS Level Of Consciousness - 1a: 1 Level Of Consciousness Questions - 1b: One Correct Level Of Consciousness Commands - 1c: Both Correct Best Gaze - 2: Normal Visual Cruz - 3: No Visual Loss Facial Palsy - 4: Normal Motor Arm Right - 5: No Drift Motor Arm Left - 5: No Drift Motor Leg Right - 6: No Drift Motor Leg Left - 6: No Drift Limb Ataxia - 7: Absent Sensory - 8: Normal Best Language - 9: No Aphasia Dysarthia - 10: Normal Extinction And Inattention - 11: 0 Score Total Score: 2
--- NOTE | 2021-09-12 15:48 | XRR_ITS ---
PROCEDURE INFORMATION: Exam: XR Chest Exam date and time: 09/12/2021 3:48 PM Age: 56 years old Clinical indication: Prior surgery; Surgery date: 1-6 months; Surgery type: Heart stent; Patient HX: Was recently disc. Harged on 08/25. Now has productive cough with green-yellow sputum. Also fell 09/12. C/O RT hip pain; Additional info: Dyspnea/cough TECHNIQUE: Imaging protocol: XR of the chest. Views: 1 view. COMPARISON: CR XR chest 1V portable [id number] 08/24/2021 3:31 PM FINDINGS: Lungs: Interstitial crowding with interstitial prominence which could be on the basis of vascular congestion similar to comparison chest. Accentuation of hilar bronchial margins. Pleural spaces: Unremarkable. No pleural effusion. No pneumothorax. Heart/Mediastinum: Accentuation of the cardiac silhouette. Bones/joints: Osteopenia. XR/XR chest 1V portable [id number] IMPRESSION: 1. Interstitial crowding and suspected underlying component of pulmonary venous congestion. 2. Accentuated hilar bronchial margins suggesting element of bronchitis. 3. Upper normal or Borderline cardiac enlargement. Radiation Dose CTDIVOL = (mGy): DLP = (mGy-cm)
[2021-09-12 16:28] LABS: Basophils # 0.2 10^3/uL (0.0-0.1); Basophils % 0.6 %; Eosinophils # 0.4 10^3/uL (0.0-0.8); Eosinophils % 1.4 %; Hematocrit 33.2 % (37.0-47.0); Hemoglobin 10.5 g/dL (11.5-15.3); Lymphocytes # 2.6 10^3/uL (0.8-4.8); Lymphocytes % 9.2 %; Mean Corpuscular HGB Conc 31.6 g/dL (30.0-36.0); Mean Corpuscular Hemoglobin 24.5 pg (28.0-34.0); Mean Corpuscular Volume 77.4 fl (81-99); Mean Platelet Volume 9.6 fL (7.4-10.4); Monocytes # 2.4 10^3/uL (0.2-0.9); Monocytes % 8.7 %; Neutrophils # 21.92 10^3/uL (1.8-7.7); Neutrophils % 78.7 %; Nucleated Red Blood Cells % 0.1 %; Platelet Count 591 10^3/cmm (130-400); Red Blood Count 4.29 10^6/uL (4.1-5.3); Red Cell Distribution Width 16.3 % (12.1-15.1); White Blood Count 27.8 10^3/uL (4.0-10.0)
[2021-09-12 16:47] LABS: Ketone (Acetest) Serum Negative (Negative)
[2021-09-12 16:48] LABS: SARS Covid-2 Antigen Negative (Negative)
[2021-09-12 16:59] LABS: Alanine Aminotransferase 28 U/L (0-33); Albumin Level 3.4 g/dL (3.5-5.2); Alkaline Phosphatase 123 IU/L (35-105); Anion Gap 19.4 (5-19); Aspartate Amino Transferase 78 U/L (0-32); Blood Urea Nitrogen 16 mg/dL (6-20); Calcium 9.3 mg/dL (8.5-10.5); Carbon Dioxide 24 mmol/L (22-29); Chloride 91 mmol/L (98-107); Globulin 3.7 g/dL (1.3-4.6); Glomerular Filtration Rate 57.8 mL/min (90-130); Glucose 306 mg/dL (65-115); Lactic Sepsis W/Reflex 2.8 mmol/L (0.5-2.2); Osmolality Calculated 285 mOsm/kg (285-295); Potassium 3.4 mmol/L (3.5-5.1); Sodium 131 mmol/L (136-145); Total Bilirubin 0.4 mg/dL (0.15-1.2); Total Protein 7.1 g/dL (6.6-8.7)
[2021-09-12 17:08] LABS: ABG PCO2 37.2 mmHg (35-45); ABG PH Result 7.47 (7.35-7.45); Arterial Blood Gas Hematocrit 32.3 % (37-47); Base Excess ABG 2.9 mmol/L (-2.0-2.0); Blood Gas Allen Test Pos; Blood Gas Sample Type Arterial; Carboxyhemoglobin 2.6 %THgb (0.4-20.1); HCO3 ABG 26.8 mmol/L (22-26); HGB O2 Sat 88.4 % (95-100); Ionized Calcium Level - ABG 1.2 mmol/L (1.1-1.4); Methemoglobin 0.1 % (0.4-1.5); Oxygen Saturation ABG 90.8; PO2 ABG 56.4 mmHg (80.0-100.0); Potassium Level - ABG 3.5 mmol/L (3.5-5.0); Total Hemoglobin 10.6 g/dL (12-16)
[2021-09-12 17:09] LABS: Alveolar-Arterial Oxygen Gradi 16.2 mmHg (5-10); Blood Gas Operator Identificat ED; Blood Gas Sample Site Radial, left; Oxygen Device NC
[2021-09-12] MEDS: morphine 4 mg/mL SDV 1 mL IVP (17:15)
[2021-09-12] MEDS: ondansetron 2 mg/ML SDV 2 mL 4 MG IVP (17:15)
[2021-09-12 17:39] LABS: Reflex Lactate Order REFLEX LACTIC ORDERD
[2021-09-12 18:08] LABS: Add Urine Microscopic? YES; Bilirubin Urine Neg (Negative); Blood Urine 2+ (Negative); Glucose Urine UA 4+ (Normal); Ketones Urine Negative (Negative); Leukocyte Esterase Urine Negative (Negative); Nitrate Urine Positive (Negative); Protein Urine Neg (Negative); Specific Gravity, Urine 1.025 (1.005-1.030); Urine Appearance Clear (CLEAR); Urine Color Yellow (Yellow); Urobilinogen Urine Norm (Negative); pH Urine 5 (5-7)
[2021-09-12] MEDS: aztreonam 2,000 MG in sodium chloride 0.9% (plus) 100 ML 200 MG IV (18:15)
[2021-09-12 18:23] LABS: Bacteria Urine 3+ /hpf; Mucus Urine 1+ /hpf; Squamous Epithelial Cell Urine 0-4 /hpf (0-5); WBC Urine 0-4 /hpf (0-5)
[2021-09-12 18:25] LABS: Add Urine Culture? Yes
[2021-09-12] MEDS: vancomycin 1,000 MG in sodium chloride 0.9% 250 ML 250 MG IV (19:03)
[2021-09-12 19:19] VITALS: BP 120/104; PULSE 104; RESP 18; O2SAT 96
[2021-09-12 20:19] LABS: Lactic Acid level (Lactate) 2.8 mmol/L (0.5-2.2)
--- NOTE | 2021-09-12 20:58 | PM.HP ---
Providers/Chief Complaint Admitting Physician: Deanne Delgadillo MD Primary Care Provider: KATHY Stewart Chief Complaint: WEAKNESS; HX OF CEREBRAL STENT History of Present Illness 56 year old female with past medical history of hypertension, hyperlipidemia, coronary artery disease s/p recent PCI/mLcx HAILEE(07/2021), congestive heart failure, obesity, COPD on 2L of oxygen, chronic hip pain, diabetic neuropathy and insulin dependant diabetes mellitus who was recently discharged on 08/25 after admission for syncopal event now presenting to ER with productive cough. Patient stated she has had a progressively increasing cough for the past week. Noted green-yellow sputum. Denied worsening respiratory distress from baseline. Denied fever, chill, nausea or vomiting. In addition she was also complaining of rip hip pain which is a know chronic issue for her however exacerbated after she sustained a fall earlier today while ambulating to porch. Denied head trauma or LOC. Denied chest pain. Upon arrival to ER Laboratory workup showed a WBC of 27.8, hemoglobin 10.5, hematocrit 33.2 and a platelet count of 591. Arterial blood gases showed a pH of 7.47, pCO2 37.2, PO2 of 56.4 and a bicarb of 26.8 on 3 L of O2 via nasal cannula. Sodium 131, potassium 3.4, chloride 91, bicarb 24, BUN 16 and creatinine 1.0.Lactic acid of 2.8. AST of 78, ALT of 28 and alkaline phosphatase of 123. Urinalysis showed positive nitrites, negative leukocyte esterase, 3+ bacteria. COVID-19 antigen negative-PCR pending.Patient was started on vancomycin and aztreonam. Review of Systems General: Reports: 10 or more systems reviewed and unremarkable except in HPI and below Medications/Allergies Home Medications Medication Instructions Recorded Confirmed Last Taken Type acetaminophen 650 mg PO Q6H PRN #30 tab 10/16/20 09/12/21 04/21/21 Rx furosemide 40 mg tablet 40 mg PO BID@0800,2100 PRN #60 tab 03/04/21 09/12/21 08/13/21 20:00 Rx albuterol sulfate 90 mcg/actuation 2 puff INHALATION QID PRN 30 Days 03/06/21 09/12/21 08/13/21 20:00 Rx aerosol inhaler #6.7 gm midodrine 5 mg tablet 5 mg PO BID@0800,2100 #60 tab 04/16/21 09/12/21 08/13/21 20:00 Rx nitroglycerin 0.4 mg sublingual See Rx Instructions .ROUTE 06/05/21 09/12/21 Unknown Rx tablet .COMPLEX #25 tab atorvastatin 80 mg tablet 80 mg PO DAILY #30 tab 06/09/21 09/12/21 08/13/21 20:00 Rx ticagrelor 90 mg tablet 90 mg PO BID@ #180 tab 06/09/21 09/12/21 08/13/21 20:00 Rx duloxetine 60 mg capsule,delayed 60 mg PO DAILY@08 30 Days #30 cap 06/10/21 09/12/21 Unknown Rx release sprinkle losartan 50 mg tablet 50 mg PO DAILY@0800 #30 tab 07/06/21 09/12/21 Unknown Rx ergocalciferol (vitamin D2) 1,250 1,250 mcg PO Q7D #4 cap 07/07/21 09/12/21 08/10/21 Rx mcg (50,000 unit) capsule evolocumab 140 mg/mL subcutaneous 140 mg SUBCUT .[id number] #2 ml 07/07/21 09/12/21 08/05/21 Rx pen injector insulin detemir U-100 100 unit/mL 10 unit SUBCUT DAILY@08 #15 ml 07/07/21 09/12/21 Unknown Rx (3 mL) subcutaneous pen pen needle, diabetic 31 gauge x #100 ea 07/07/21 09/12/21 Unknown Rx 5/16 cyclobenzaprine 10 mg tablet 10 mg PO TID PRN 30 Days #90 tab 07/22/21 09/12/21 08/13/21 20:00 Rx hydromorphone 4 mg tablet 4 mg PO QID PRN 30 Days #120 tab 07/22/21 09/12/21 Unknown Rx pregabalin 150 mg capsule 150 mg PO BID@0800,1800 30 Days 07/22/21 09/12/21 08/13/21 20:00 Rx #60 cap oxybutynin chloride 5 mg 5 mg PO DAILY #30 tab 07/28/21 09/12/21 08/13/21 20:00 Rx tablet,extended release 24 hr isosorbide mononitrate 60 mg 60 mg PO BID@08,21 #180 tab 08/10/21 09/12/21 08/13/21 20:00 Rx tablet,extended release 24 hr pen needle, diabetic 32 gauge x #100 ea 08/11/21 09/12/21 Unknown Rx aspirin [Adult Aspirin Regimen] 81 mg PO DAILY #30 tab 08/15/21 09/12/21 Unknown Rx COCK UP SPLINT #2 ea NS 08/26/21 09/12/21 Unknown Rx insulin lispro 100 unit/mL See Rx Instructions SUBCUT TID #15 09/04/21 09/12/21 Unknown Rx subcutaneous pen ml doxycycline hyclate 100 mg capsule 100 mg PO BID 10 Days #20 cap 09/09/21 09/12/21 Unknown Rx quetiapine 200 mg tablet 200 mg PO DAILY #30 tab 09/09/21 09/12/21 Unknown Rx Allergies Allergy/AdvReac Type Severity Reaction Status Date / Time adhesive Allergy Unknown Verified 09/09/21 10:50 clindamycin Allergy ADR-Itching Verified 09/09/21 10:50 codeine Allergy Unknown Verified 09/09/21 10:50 fentanyl Allergy ALGY-Difficulty Verified 09/09/21 10:50 Breathing hydrocodone Allergy Unknown Verified 09/09/21 10:50 latex Allergy ALGY-Swell Verified 09/09/21 10:50 Lip/Tongue/Throat naproxen [From Naprosyn] Allergy Unknown Verified 09/09/21 10:50 nut - unspecified Allergy ALGY-Anaphy Verified 09/09/21 10:50 laxis oxycodone [From Roxicodone] Allergy ADR-Muscle Verified 09/09/21 10:50 Pain Penicillins Allergy Unknown Verified 09/09/21 10:50 sulfamethoxazole Allergy ADR-Migrain Verified 09/09/21 10:50 [From Bactrim] e trimethoprim [From Bactrim] Allergy ADR-Migrain Verified 09/09/21 10:50 e PFSH Acute PFSH: Medical History (HFpEF) heart failure with preserved ejection fraction Acute exacerbation of CHF (congestive heart failure) Acute kidney injury Anemia CAD (coronary artery disease) Candidiasis of vagina Chest pain Chest pain, midsternal Chronic knee pain Chronic left-sided low back pain Chronic obstructive pulmonary disease, unspecified Chronic pain of left knee Compression fracture of L2 lumbar vertebra COPD (chronic obstructive pulmonary disease) Coronary artery disease due to type 2 diabetes mellitus Current every day smoker CVA (cerebral vascular accident) Dehydration Demand ischemia Diabetes type 2, uncontrolled Dyslipidemia Dyspnea Elevated troponin Encounter for long-term opiate analgesic use Essential hypertension Exposure to COVID-19 virus Fibromyalgia, primary History of CVA (cerebrovascular accident) History of hypoglycemic coma Hyperlipidemia, mixed Hypotension Insomnia Intervertebral disc disorder of lumbar region with myelopathy Leukocytosis Low back pain radiating to both legs Lumbosacral spondylosis without myelopathy Neuropathy NSTEMI (non-ST elevated myocardial infarction) Thought to be secondary to plaque rupture. Angiogram July 04 no flow-limiting lesions, or restenosis of previous stent from April 2020 Obesity (BMI 35.0-39.9 without comorbidity) Opioid contract exists Osteoarthritis of left knee Osteoarthritis of spine at multiple levels Pericardial effusion Peripheral sensory neuropathy due to type 2 diabetes mellitus Pneumonia Pressure ulcer Prosthetic joint infection Right hip pain Septic arthritis of knee, left Syncope Type 2 diabetes mellitus with diabetic autonomic (poly)neuropathy Unstable angina Urinary tract infection Vitamin D deficiency Surgical History History of arthroscopic surgery of elbow BILATERAL History of coronary angiogram Angiogram April 2020 with 90% circumflex lesion, drug-eluting stent placed by Dr. Jerome S/p bilateral carpal tunnel release S/P hysterectomy S/P knee surgery RIGHT S/P lumbar fusion DR. Shreya ZAYAS IN [place], [place] L4-L5, L5-S1 Status post left knee replacement Status post lumbar laminectomy Family History Other CAD (coronary artery disease) Cancer Diabetes Social History Second hand smoke exposure: Yes Smoking risk assessment/counseling performed?: Yes Alcohol intake: former Desire information about alcohol rehabilitation?: No Counseling given: No Desire information about substance/drug rehabilitation?: No Counseling given: No Caregiver/support person: No Lives independently: Yes Household members: family and other Details: son Housing: Manufactured/Mobile home Marital status: Unknown Marital status details: She and son state she is not service: No Current occupational status: unemployed Pets and animals: Yes History of recent travel: No Current gender identity: Female Vitals/I&O/Wt Last Vital Signs Temp 99.7 F H 09/13/21 02:04 Pulse 99 09/13/21 02:04 Resp 20 H 09/13/21 02:04 BP 125/60 09/13/21 02:04 Pulse Ox 98 09/13/21 02:04 Weight last 48 hrs Weight 103.328 kg Weight 98.883 kg Physical Exam Narrative: EXAM NARRATIVE: General : Alert, awake, in no distress HEENT; Grossly unremarkable CVS; RRR Chest : Decreased at bases Abd: Soft, NT, ND Ext: Bilateral lower ext edema - mild. Decrease ROM of RLE due to pain. RUE weakness. Data : 09/12/21 16:20 09/12/21 16:20 Micro: Microbiology 09/12/21 19:50 Blood Culture - Preliminary Blood SPECIMEN COLLECTED 09/12/21 16:20 Blood Culture - Preliminary Blood SPECIMEN COLLECTED A&P Assessment and plan (1) Sepsis: Status: Acute (2) Pneumonia: Status: Acute (3) Fall: Status: Acute Additional A&P Information Sepsis due to Healthcare associated Pneumonia / Possible UTI Recent hospitalization 08/25/21 WBC 27, RR 20, Temp 99.7, Lactic acid 2.8 , UA + nitrite/3+ bacteria Vancomycin pharmacy to dose Aztreonam 1g IV q12 hr ( noted PCN allergy ) unclear if able to tolerate cephalosporins Procalcitonin in am Blood culture x 2 Urine culture Obtain Sputum culture Covid-19 rapid ag negative - PCR pending CBC in am Fall with exacerbation of ch. right hip pain Obtain Rt.Hip xray Fall precautions PT consultation Pain control Chronic hypoxemic respiratory failure on 2L via NC / COPD Currently at 3L via NC Wean as tolerated Continue home neb Rt eval and tx Diabetes Mellitus Diabetic diet Sliding scale insulin Coronary artery disease hx of PCI/mLcx HAILEE stent Aspirin 81 mg Po daily / Brilinta 90 mg PO BID Imdur 60 mg PO BID Lipitor 80 mg PO qhs Telemetry Hypertension Losartan 50 mg Po daily Meds as above Orthostatic hypotension Midodrine 5 mg PO BID Hypercholesterolemia High dose statin DVT ppx - Heparin 5000 units q8hr Attestations Medical Necessity Statement*: anticipate over 2 midnight stay in hospital for eval and treatment Time Spent in Patient Care: Greater than 35 minutes (>than 50% of time spent in counselling and/or direct pt care on unit). Coding Level of Care Code Acute Senior Search Marketing Analyst for Chg Fwd Diagnoses Sepsis A41.9 Pneumonia J18.9 Fall W19.XXXA
[2021-09-12 22:04] VITALS: BMI 36.7
[2021-09-12 23:00] VITALS: BP 125/79; PULSE 96; RESP 20; TEMP 36.9; O2SAT 92
[2021-09-13] VITALS (9 sets, daily range): BP systolic 103–127; BP diastolic 60–71; PULSE 98–102; RESP 17–22; TEMP 36.9–37.6; O2SAT 90–98
--- NOTE | 2021-09-13 02:03 | XRR_ITS ---
PROCEDURE INFORMATION: Exam: XR Right Hip Exam date and time: 09/13/2021 2:03 AM Age: 56 years old Clinical indication: Injury or trauma; Fall; Blunt trauma (contusions or hematomas); Right; Hip; Additional info: Fall hip pain TECHNIQUE: Imaging protocol: XR Right hip. Views: 1 view hip with pelvis when performed. COMPARISON: CT bony pelvis [id number] 03/16/2021 4:57 AM FINDINGS: Bones/joints: Unremarkable. No acute fracture. Soft tissues: Unremarkable. XR/XR hip RT 2-3V wo/w pel* [id number] IMPRESSION: No acute findings. Radiation Dose CTDIVOL = (mGy): DLP = (mGy-cm)
--- NOTE | 2021-09-13 02:24 | PC.PHAR ---
Vancomycin is dosed at 1gm IVPB every 12 hours to produce a predicted trough level of 15.24 (population based pharacokinetic analysis). A trough level has been ordered from the lab to be obtained before the fourth dose to confirm and adjust if needed.
[2021-09-13] MEDS: heparin 5,000 unit/mL INJ 1 mL 5000 UNIT SUBCUT ×3 (02:54→18:09)
[2021-09-13 05:22] LABS: Basophils # 0.1 10^3/uL (0.0-0.1); Basophils % 0.6 %; Eosinophils # 0.7 10^3/uL (0.0-0.8); Eosinophils % 2.8 %; Hematocrit 31.6 % (37.0-47.0); Lymphocytes # 2.4 10^3/uL (0.8-4.8); Lymphocytes % 10.4 %; Mean Corpuscular HGB Conc 31.6 g/dL (30.0-36.0); Mean Corpuscular Hemoglobin 24.3 pg (28.0-34.0); Mean Corpuscular Volume 76.7 fl (81-99); Monocytes # 2.1 10^3/uL (0.2-0.9); Monocytes % 8.9 %; Neutrophils # 17.57 10^3/uL (1.8-7.7); Neutrophils % 75.4 %; Nucleated Red Blood Cells % 0 %; Platelet Count 582 10^3/cmm (130-400); Red Blood Count 4.12 10^6/uL (4.1-5.3); Red Cell Distribution Width 16.1 % (12.1-15.1); White Blood Count 23.3 10^3/uL (4.0-10.0)
[2021-09-13] MEDS: morphine 4 mg/mL SDV 1 mL 2 MG IVP ×2 (05:26→22:44)
[2021-09-13 05:46] LABS: Alanine Aminotransferase 25 U/L (0-33); Alkaline Phosphatase 115 IU/L (35-105); Anion Gap 19.5 (5-19); Aspartate Amino Transferase 59 U/L (0-32); Blood Urea Nitrogen 13 mg/dL (6-20); Calcium 8.7 mg/dL (8.5-10.5); Carbon Dioxide 21 mmol/L (22-29); Chloride 96 mmol/L (98-107); Globulin 3.6 g/dL (1.3-4.6); Glomerular Filtration Rate 87.2 mL/min (90-130); Glucose 244 mg/dL (65-115); Osmolality Calculated 284 mOsm/kg (285-295); Potassium 3.5 mmol/L (3.5-5.1); Sodium 133 mmol/L (136-145); Total Bilirubin 0.3 mg/dL (0.15-1.2); Total Protein 6.6 g/dL (6.6-8.7)
[2021-09-13] MEDS: aztreonam 1,000 MG in sodium chloride 0.9% (plus) 50 ML 100 MG IV ×2 (06:58→18:09)
[2021-09-13 07:15] LABS: Glucose Point of Care 271 mg/dL (70-110)
[2021-09-13] MEDS: vancomycin 1,000 MG in sodium chloride 0.9% 250 ML 250 MG IV ×2 (07:52→22:20)
--- NOTE | 2021-09-13 07:56 | USCV_ITS ---
Mayra Ascencio Age: 56 Gender: F : 1965 Exam Date: 09/13/2021 09:36 Ordering Phys: Deanne Delgadillo MD Technologist: [place] [facility] [place]B BP: 128 / 76 HR: 96 Rhythm: Sinus Technical Quality: Adequate MEASUREMENTS (Male / Female) Normal Values 2D ECHO LV Diastolic Diameter PLAX 4.8 cm 4.2 - 5.9 / 3.9 - 5.3 cm LV Systolic Diameter PLAX 2.6 cm IVS Diastolic Thickness 0.9 cm 0.6 - 1.0 / 0.6 - 0.9 cm IVS Systolic Thickness 1.4 cm LVPW Diastolic Thickness 0.8 cm 0.6 - 1.0 / 0.6 - 0.9 cm LVPW Systolic Thickness 1.3 cm LVOT Diameter 2.3 cm LV Ejection Fraction 2D Teich 77.2 % LA Diameter 4.1 cm LA Width 3.6 cm LA Height 5.2 cm RA Width 3.3 cm RA Height 3.9 cm M-MODE LV Diastolic Diameter MM 4.2 cm 4.2 - 5.9 / 3.9 - 5.3 cm LV Systolic Diameter MM 3.0 cm LV Ejection Fraction MM Teich 56.9 % IVS Diastolic Thickness MM 0.9 cm 0.6 - 1.0 / 0.6 - 0.9 cm IVS Systolic Thickness MM 1.2 cm LVPW Diastolic Thickness MM 1.1 cm 0.6 - 1.0 / 0.6 - 0.9 cm LVPW Systolic Thickness MM 1.6 cm RV Diastolic Diameter MM 1.6 cm DOPPLER AV Peak Velocity 223.0 cm/s LVOT Peak Velocity 121.0 cm/s AV Area Cont Eq vti 2.2 cm squared AV Area Cont Eq pk 2.3 cm squared MV Area PHT 5.0 cm squared Mitral E to A Ratio 1.0 MV E' Velocity 53.5 cm/s Mitral E to MV E' Ratio 7.5 Mitral E to LV E' Lateral Ratio 7.3 Mitral E to LV E' Septal Ratio 7.7 TR Peak Velocity 282.0 cm/s TR Peak Gradient 31.8 mmHg TV Peak E Velocity 117.0 cm/s Right Atrial Pressure 3.0 mmHg Pulmonary Artery Systolic Pressu 34.8 mmHg FINDINGS Left Ventricle Normal left ventricular cavity size. Normal left ventricular systolic function. No regional wall motion abnormalities. Left ventricular ejection fraction is estimated at 56 %. Normal diastolic function. Right Ventricle The right ventricle is normal in size and function. Right Atrium The right atrium is normal in size. Left Atrium The left atrium is normal in size. Mitral Valve Structurally normal mitral valve without significant stenosis or prolapse. There is no mitral regurgitation. Aortic Valve Moderate aortic valve calcification. No aortic valve stenosis. Trace aortic valve regurgitation. Tricuspid Valve Trace tricuspid valve regurgitation. Pulmonic Valve Structurally normal pulmonic valve without significant stenosis. There is no pulmonic regurgitation. Pericardium Normal pericardium without effusion. Aorta Normal ascending aorta dimension. CONCLUSIONS 1-Normal left ventricular cavity size. Normal left ventricular systolic function. No regional wall motion abnormalities. Left ventricular ejection fraction is estimated at 56 %. Normal diastolic function. 2-Moderate aortic valve calcification. No aortic valve stenosis. Trace aortic valve regurgitation. 3-Trace tricuspid valve regurgitation. 4-There is no pericardial effusion. 5-Right atrial pressure is around 5 mm of mercury. 6-When compared to prior echocardiogram dated 29 December 2020 there is no significant change Darrell Jerome MD (Electronically Signed) Final Date: 13 September 2021 13:57 S
[2021-09-13] MEDS: pregabalin 150 mg Capsule PO ×2 (09:49→18:09)
[2021-09-13] MEDS: ticagrelor 90 mg Tablet PO ×2 (09:49→22:26)
[2021-09-13] MEDS: midodrine 5 mg TABLET PO ×2 (09:49→22:26)
[2021-09-13] MEDS: aspirin 81 mg EC Tablet PO (09:49)
[2021-09-13] MEDS: isosorbide mononitrate ER 60 mg Tablet PO ×2 (09:49→22:26)
[2021-09-13] MEDS: potassium chloride oral liq 20 mEq/15 mL UDC 40 MEQ PO (09:50)
[2021-09-13] MEDS: duloxetine 60 mg Capsule PO (09:50)
[2021-09-13] MEDS: losartan 50 mg Tablet PO (09:50)
[2021-09-13] MEDS: insulin lispro 100 unit/1 mL SUBCUT ×4 (09:51→22:25)
[2021-09-13] MEDS: oxybutynin chloride XL 5 MG TABLET PO (09:51)
[2021-09-13 11:00] LABS: Glucose Point of Care 302 mg/dL (70-110)
--- NOTE | 2021-09-13 13:50 | CTR_ITS ---
PROCEDURE INFORMATION: Exam: CT Head Without Contrast Exam date and time: 09/13/2021 1:50 PM Age: 56 years old Clinical indication: Weakness, extremity; Right; Patient HX: C/O R sided weakness after falling; Additional info: Rue/rle weakness TECHNIQUE: Imaging protocol: Computed tomography of the head without contrast. Radiation optimization: All CT scans at this facility use at least one of these dose optimization techniques: automated exposure control; mA and/or kV adjustment per patient size (includes targeted exams where dose is matched to clinical indication); or iterative reconstruction. COMPARISON: CT head wo con* [id number] 08/24/2021 3:51 PM RADIATION DOSE METRICS: Total DLP (mGy-cm): 886.07 FINDINGS: Brain: No hemorrhage. Mild diffuse cerebral atrophy. No significant white matter disease. No mass effect. Cerebral ventricles: No ventriculomegaly. Paranasal sinuses: Visualized sinuses are unremarkable. No fluid levels. Mastoid air cells: Visualized mastoid air cells are well aerated. Bones/joints: Unremarkable. No acute fracture. Soft tissues: Unremarkable. CT/CT head wo con* [id number] IMPRESSION: No acute intracranial abnormality. Radiation Dose CTDIVOL = (mGy): DLP = 886.07 (mGy-cm)
[2021-09-13] MEDS: cyclobenzaprine 10 mg Tablet PO (13:59)
--- NOTE | 2021-09-13 15:02 | P.PN_ITS ---
Subjective Subjective: Interval history: Seen this morning. She states that she is not better and would like to stay in the hospital. I assured her that she is not ready to be discharged at this time anyway. Patient stated that she was scared that she had a hip fracture but is happy to know that her skin is okay. She is about to walk with physical therapy with her walker when she was seen. Patient is having a cough with thick tenacious yellow-green sputum with some flecks of blood. Sputum culture pending. WBC count has decreased to 23,000 from 28,000. He is on 3 L nasal cannula oxygen this morning. She is on 2 L at home. Vitals/I&O/Wt Last Vital Signs Temp 98.5 F 09/13/21 11:54 Pulse 101 H 09/13/21 11:54 Resp 18 09/13/21 11:54 BP 113/63 09/13/21 11:54 Pulse Ox 94 09/13/21 11:54 09/13/21 09/13/21 09/13/21 06:59 14:59 22:59 Intake Total 480 / 480 650 / 650 Output Total 700 / 700 Balance -220 / -220 650 / 650 Weight last 48 hrs Weight 104.009 kg Weight 103.328 kg Weight 98.883 kg Physical Exam Narrative: EXAM NARRATIVE: General : Alert, awake, in no distress HEENT; Grossly unremarkable CVS; RRR, no gross murmurs, Chest : Diminished air entry bilaterally but clear to auscultation throughout lung yo, slightly decreased aeration at bases no wheezes no rhonchi no crackles appreciated. Abd: Soft, NT, ND, no guarding or rigidity Ext: Bilateral lower ext edema -1+ to 1-1/2+. Denies leg pain today. Data : 09/13/21 04:52 09/13/21 04:52 Micro: Microbiology 09/12/21 19:50 Blood Culture - Preliminary Blood SPECIMEN COLLECTED 09/12/21 16:20 Blood Culture - Preliminary Blood SPECIMEN COLLECTED A&P Assessment and plan (1) Sepsis: Status: Acute (2) Pneumonia: Status: Acute (3) Fall: Status: Acute Additional A&P Information Sepsis due to Healthcare associated Pneumonia / Possible UTI Recent hospitalization 08/25/21 WBC 27, RR 20, Temp 99.7, Lactic acid 2.8 , UA + nitrite/3+ bacteria Vancomycin pharmacy to dose Aztreonam 1g IV q12 hr ( noted PCN allergy ) unclear if able to tolerate cephalosporins Procalcitonin in am Blood culture x 2 Urine culture pending Sputum culture results pending Covid-19 rapid ag negative - PCR pending Fall with exacerbation of ch. right hip pain Obtain Rt.Hip xray Fall precautions PT consultation Pain control Chronic hypoxemic respiratory failure on 2L via NC / COPD Currently at 3L via NC Wean as tolerated Continue home neb Rt eval and tx Diabetes Mellitus Diabetic diet Sliding scale insulin Coronary artery disease hx of PCI/mLcx HAILEE stent Aspirin 81 mg Po daily / Brilinta 90 mg PO BID Imdur 60 mg PO BID Lipitor 80 mg PO qhs Telemetry Hypertension Losartan 50 mg Po daily Meds as above Orthostatic hypotension Midodrine 5 mg PO BID Hypercholesterolemia High dose statin DVT ppx - Heparin 5000 units q8hr Attestations Medical Necessity Statement*: Patient need IV antibiotics for active treatment of pneumonia. Coding Level of Care Code Acute Religious Assistant for [facility] Fwd Diagnoses Sepsis A41.9 Pneumonia J18.9 Fall W19.XXXA
[2021-09-13 18:07] LABS: Glucose Point of Care 288 mg/dL (70-110)
[2021-09-13 21:06] LABS: Glucose Point of Care 245 mg/dL (70-110)
[2021-09-13] MEDS: atorvastatin 40 mg Tablet 80 MG PO (22:25)
[2021-09-14] VITALS (12 sets, daily range): BP systolic 110–132; BP diastolic 67–79; PULSE 76–109; RESP 16–18; TEMP 36.7–37.1; O2SAT 91–94
[2021-09-14] MEDS: heparin 5,000 unit/mL INJ 1 mL 5000 UNIT SUBCUT ×3 (03:39→18:15)
[2021-09-14] MEDS: morphine 4 mg/mL SDV 1 mL 2 MG IVP ×3 (06:29→21:14)
[2021-09-14 06:44] LABS: Glucose Point of Care 186 mg/dL (70-110)
[2021-09-14] MEDS: aztreonam 1,000 MG in sodium chloride 0.9% (plus) 50 ML 100 MG IV (06:45)
[2021-09-14 07:02] LABS: Basophils # 0.1 10^3/uL (0.0-0.1); Basophils % 0.6 %; Eosinophils # 0.8 10^3/uL (0.0-0.8); Eosinophils % 5.1 %; Hematocrit 32.2 % (37.0-47.0); Hemoglobin 9.9 g/dL (11.5-15.3); Lymphocytes # 3.4 10^3/uL (0.8-4.8); Lymphocytes % 21.6 %; Mean Corpuscular HGB Conc 30.7 g/dL (30.0-36.0); Mean Corpuscular Hemoglobin 23.7 pg (28.0-34.0); Mean Corpuscular Volume 77.2 fl (81-99); Mean Platelet Volume 9.8 fL (7.4-10.4); Monocytes # 1.4 10^3/uL (0.2-0.9); Neutrophils # 9.43 10^3/uL (1.8-7.7); Neutrophils % 59.7 %; Nucleated Red Blood Cells % 0 %; Platelet Count 626 10^3/cmm (130-400); Red Blood Count 4.17 10^6/uL (4.1-5.3); Red Cell Distribution Width 16.1 % (12.1-15.1); White Blood Count 15.8 10^3/uL (4.0-10.0)
[2021-09-14 07:27] LABS: Alanine Aminotransferase 21 U/L (0-33); Albumin Level 2.9 g/dL (3.5-5.2); Alkaline Phosphatase 95 IU/L (35-105); Anion Gap 16.2 (5-19); Aspartate Amino Transferase 38 U/L (0-32); Blood Urea Nitrogen 10 mg/dL (6-20); Calcium 8.9 mg/dL (8.5-10.5); Carbon Dioxide 24 mmol/L (22-29); Chloride 103 mmol/L (98-107); Globulin 2.6 g/dL (1.3-4.6); Glomerular Filtration Rate 104.2 mL/min (90-130); Glucose 145 mg/dL (65-115); Osmolality Calculated 290 mOsm/kg (285-295); Potassium 4.2 mmol/L (3.5-5.1); Sodium 139 mmol/L (136-145); Total Bilirubin 0.2 mg/dL (0.15-1.2); Total Protein 5.5 g/dL (6.6-8.7)
--- NOTE | 2021-09-14 07:37 | CT_ITS ---
WS: [id number] CTA HEAD AND NECK TECHNIQUE: Contrast enhanced CTA of the head and neck with coronal and sagittal reformatted images an d maximum intensity projection (MIP) images. NASCET criteria utilized. CLINICAL INFORMATION: Rt sided weakness COMPARISON: 6 18,019 DLP: 2606.[address] scans at [facility] [place] use at least one of these dose optimization techniques: automated e xposure control; mA and/or kV adjustment per patient size (includes targeted exams where dose is matc hed to clinical indication); or iterative reconstruction. FINDINGS: RIGHT: Right common carotid artery is patent. Moderate calcified atheromatous plaque right carotid bu lb extending into the ICA with less than 50% stenosis. This is unchanged from previous. Right ICA is patent to the skull base. LEFT: Left common carotid artery is patent. Progressed eccentric atheromatous plaque left proximal IC A with approximately 70% stenosis. Left ICA is patent to the skull base. Patchy hazy groundglass infiltrates in the lung apices. Recommend correlation for viral pneumonia. Daljit th vertebral arteries are patent. Proximal basilar artery is patent. Normal vascularity to the [employer] te rritory bilaterally. Enlarged bilateral cervical chain lymph nodes, supraclavicular lymph nodes extending into the mediast inum. Anterior mediastinal, hilar. and subcarinal lymphadenopathy. Paranasal sinuses and mastoid air cells well aerated. INTRACRANIAL CTA: Both ICAs are patent at the skull base. Moderate calcified atheromatous disease cavernous carotid seg ments bilaterally. Hypoplastic right A1 segment. Normal vascularity to the BETH and MCA territories bi laterally. No evidence of proximal high-grade stenosis or aneurysm. CT/CT angio headneck* [id number] IMPRESSION: 1. Left ICA stenosis has progressed compared to previous measuring approximate ly 70% today with eccentric proximal ICA plaque. 2. Less than 50% right ICA stenosis. 3. Normal intracranial CTA. No proximal high-grade stenosis or aneurysm. 4. Patchy groundglass infiltrates in the lung apices. Correlation for COVID 19 Pneumonia 5. Bilateral cervical, mediastinal, hilar, subcarinal lymphadenopathy nonspeci fic but may be reactive. Recommend correlation with clinical history.
[2021-09-14] MEDS: insulin lispro 100 unit/1 mL SUBCUT ×4 (08:28→21:17)
[2021-09-14] MEDS: midodrine 5 mg TABLET PO ×2 (08:29→20:13)
[2021-09-14] MEDS: isosorbide mononitrate ER 60 mg Tablet PO ×2 (08:29→20:13)
[2021-09-14] MEDS: duloxetine 60 mg Capsule PO (08:29)
[2021-09-14] MEDS: pregabalin 150 mg Capsule PO ×2 (08:29→18:15)
[2021-09-14] MEDS: aspirin 81 mg EC Tablet PO (08:29)
[2021-09-14] MEDS: ticagrelor 90 mg Tablet PO ×2 (08:31→20:13)
[2021-09-14] MEDS: oxybutynin chloride XL 5 MG TABLET PO (08:31)
[2021-09-14] MEDS: losartan 50 mg Tablet PO (08:32)
[2021-09-14] MEDS: iohexol 350 mg/mL 100 mL Btl IV (08:51)
[2021-09-14 11:16] LABS: Vancomycin Trough 7.7 ug/mL (10-15)
[2021-09-14] MEDS: vancomycin 1,000 MG in sodium chloride 0.9% 250 ML 250 MG IV (11:51)
[2021-09-14 11:59] LABS: Glucose Point of Care 294 mg/dL (70-110)
[2021-09-14] MEDS: cyclobenzaprine 10 mg Tablet PO (12:31)
--- NOTE | 2021-09-14 15:44 | P.PN_ITS ---
Subjective Subjective: Interval history: ctA neck has revealed significant stenosis of left ICA 70% She has right arm weakness Covid PCR is pending Currently on 2 L nasal cannula, has hoarseness of voice I will de-escalate her antibiotics to Levaquin today, leukocytosis trending down, no fever overnight Requested MRSA PCR and urine antigen Vitals/I&O/Wt Last Vital Signs Temp 98.5 F 09/14/21 12:00 Pulse 109 H 09/14/21 12:00 Resp 18 09/14/21 12:00 BP 110/70 09/14/21 12:00 Pulse Ox 93 09/14/21 12:00 09/14/21 09/14/21 09/14/21 06:59 14:59 22:59 Intake Total 480 / 1780 290 / 290 Balance 480 / 1780 290 / 290 Weight last 48 hrs Weight 104.009 kg Weight 103.328 kg Physical Exam Narrative: EXAM NARRATIVE: Patient has mild hoarseness of voice Bilateral breath sound without active wheezing Mild crackles at the bases Doing well on 2 L nasal cannula Appears extremely dry with dry cracked lips EOMI, PERRLA S1, S2 Abdomen soft Lower extremity no edema EOMI, PERRLA Right arm weakness, sensations are intact, she is able to move her right arm against gravity to some extent Right leg no significant weakness No facial asymmetry or tongue deviation EOMI, PERRLA pupils are symmetrical Data : 09/14/21 06:04 09/14/21 06:04 Micro: Microbiology 09/12/21 18:01 Urine Culture - Preliminary Urine,Clean Catch Gram Negative Rods 09/12/21 19:50 Blood Culture - Preliminary Blood NEGATIVE TO DATE 09/12/21 16:20 Blood Culture - Preliminary Blood NEGATIVE TO DATE A&P Assessment and plan (1) Fall: Status: Acute (2) Pneumonia: Status: Acute (3) Sepsis: Status: Acute (4) Numbness and tingling in both hands: Status: Acute (5) Hospital-acquired pneumonia: Status: Acute (6) Hoarseness of voice: Status: Acute (7) Right arm weakness: Status: Acute (8) Acute ischemic left ICA stroke: Status: Acute Additional A&P Information Left internal carotid extracranial disease Presented with fall and right arm weakness Left ICA 70% stenosis Continue aspirin, Plavix high-dose statin Will request evaluation of carotid disease by Dr. Miller outpatient, will request MRI to rule out stroke Hospital-acquired pneumonia De-escalate diuretics to Levaquin, add budesonide inhaled steroids along DuoNeb, check urine antigen and MRSA PCR Currently on 2 L nasal cannula, at home she does use 2 L which is her baseline, acute on chronic hypoxia: Improving Covid PCR is pending Orthostasis: Improved with midodrine I do believe her fall was related to possible recent ischemic event Diabetes: Consistent carb diet, sliding scale Full code DVT prophylaxis Heparin Attestations Medical Necessity Statement*: Continue medical management Time Spent in Patient Care: 16 - 35 minutes Coding Level of Care Code Acute Airport Operations Officer for [facility] Fwd Diagnoses Fall W19.XXXA Pneumonia J18.9 Sepsis A41.9 Numbness and tingling in both hands R20.0; R20.2 Hospital-acquired pneumonia J18.9; Y95 Hoarseness of voice R49.0 Right arm weakness R29.898 Acute ischemic left ICA stroke I63.232
[2021-09-14 17:29] LABS: Glucose Point of Care 264 mg/dL (70-110)
[2021-09-14] MEDS: atorvastatin 40 mg Tablet 80 MG PO (20:13)
[2021-09-14] MEDS: quetiapine 100 mg Tablet 200 MG PO (20:13)
[2021-09-14] MEDS: budesonide 0.5 mg/2 mL Neb 0.25 MG INHALATION (21:14)
[2021-09-14 21:16] LABS: Glucose Point of Care 196 mg/dL (70-110)
[2021-09-15] VITALS (9 sets, daily range): BP systolic 128–138; BP diastolic 76–83; PULSE 78–98; RESP 15–20; TEMP 36.6–36.7; O2SAT 88–98
[2021-09-15] MEDS: heparin 5,000 unit/mL INJ 1 mL 5000 UNIT SUBCUT ×2 (01:47→09:40)
[2021-09-15] MEDS: levoFLOXacin 750 mg Tablet PO (05:35)
[2021-09-15] MEDS: morphine 4 mg/mL SDV 1 mL 2 MG IVP (05:36)
[2021-09-15 06:45] LABS: Glucose Point of Care 189 mg/dL (70-110)
[2021-09-15 06:55] LABS: Hemoglobin 9.4 g/dL (11.5-15.3); Mean Corpuscular HGB Conc 30.3 g/dL (30.0-36.0); Mean Corpuscular Hemoglobin 23.9 pg (28.0-34.0); Mean Corpuscular Volume 78.9 fl (81-99); Mean Platelet Volume 9.7 fL (7.4-10.4); Platelet Count 677 10^3/cmm (130-400); Red Blood Count 3.93 10^6/uL (4.1-5.3); Red Cell Distribution Width 16.4 % (12.1-15.1); White Blood Count 16.1 10^3/uL (4.0-10.0)
[2021-09-15 07:14] LABS: Anion Gap 13.2 (5-19); Blood Urea Nitrogen 10 mg/dL (6-20); Calcium 9.2 mg/dL (8.5-10.5); Carbon Dioxide 25 mmol/L (22-29); Chloride 104 mmol/L (98-107); Glomerular Filtration Rate 104.2 mL/min (90-130); Glucose 157 mg/dL (65-115); Osmolality Calculated 288 mOsm/kg (285-295); Potassium 4.2 mmol/L (3.5-5.1); Sodium 138 mmol/L (136-145)
[2021-09-15 08:05] LABS: Slide Review Slide Review Perform
[2021-09-15 08:08] LABS: Absolute Eosinophils 1.1 10^3/cmm (0.0-0.7); Absolute Segmented Neutrophil 8.1 10/cmm (1.6-7.1); Band Neutrophils Absolute 1.1 10^3/cmm (0.0-1.2); Eosinophils 7 %; Lymphocytes 28 %; Monocytes Absolute 0.5 10^3/cmm (0.1-0.6); Segmented Neutrophils 50 %; Total Cells Counted 100 (0-100)
[2021-09-15 08:09] LABS: Absolute Neutrophil 9.2 10^3/cmm (1.4-6.5); Giant Platelets Trace; Lymphocytes Absolute 4.5 10^3/cmm (1.2-3.4); Microcytosis 1+; Ovalocytes 1+; Platelet Estimate Increased (Normal); Poikilocytosis 1+; Polychromasia Trace
[2021-09-15] MEDS: budesonide 0.5 mg/2 mL Neb 0.25 MG INHALATION (08:52)
[2021-09-15] MEDS: cyclobenzaprine 10 mg Tablet PO (08:52)
[2021-09-15] MEDS: losartan 50 mg Tablet PO (08:52)
[2021-09-15] MEDS: insulin lispro 100 unit/1 mL SUBCUT ×2 (08:52→12:21)
[2021-09-15] MEDS: ipratropium-albuterol 3 mL Neb INHALATION (08:52)
[2021-09-15] MEDS: midodrine 5 mg TABLET PO (08:53)
[2021-09-15] MEDS: pregabalin 150 mg Capsule PO (08:53)
[2021-09-15] MEDS: isosorbide mononitrate ER 60 mg Tablet PO (08:53)
[2021-09-15] MEDS: duloxetine 60 mg Capsule PO (08:53)
[2021-09-15] MEDS: aspirin 81 mg EC Tablet PO (08:53)
[2021-09-15] MEDS: ticagrelor 90 mg Tablet PO (08:55)
[2021-09-15] MEDS: oxybutynin chloride XL 5 MG TABLET PO (08:55)
--- NOTE | 2021-09-15 11:12 | PC.NURSE ---
Patient's COVID-19 swab has not resulted at this time. I called and spoke with lab and they are checking with [facility] to obtain the result. I informed Edgar Balderrama RN of the above information.
--- NOTE | 2021-09-15 11:48 | P.DS_ITS ---
Discharge Providers Date of Admission: 09/12/21 18:30 Date of Discharge: September 15, 2021 Attending Provider at Admission: Deanne Delgadillo MD Attending Provider at Discharge: Darrell Cunha MD Primary Care Provider: KATHY Stewart Diagnoses at Discharge Discharge Diagnosis (1) Fall: Status: Acute (2) Pneumonia: Status: Acute (3) Sepsis: Status: Acute (4) Numbness and tingling in both hands: Status: Acute (5) Hospital-acquired pneumonia: Status: Acute (6) Hoarseness of voice: Status: Acute (7) Right arm weakness: Status: Acute (8) Acute ischemic left ICA stroke: Status: Acute Reason for Visit Reason for Visit: WEAKNESS; HX OF CEREBRAL STENT Hospital Course Hospital Course of Present Illness 56 year old female with past medical history of hypertension, hyperlipidemia, coronary artery disease s/p recent PCI/mLcx HAILEE(07/2021), congestive heart failure, obesity, COPD on 2L of oxygen, chronic hip pain, diabetic neuropathy and insulin dependant diabetes mellitus who was recently discharged on 08/25 after admission for syncopal event now presenting to ER with productive cough. Patient stated she has had a progressively increasing cough for the past week. Noted green-yellow sputum. Denied worsening respiratory distress from baseline. Denied fever, chill, nausea or vomiting. In addition she was also complaining of rip hip pain which is a know chronic issue for her however exacerbated after she sustained a fall earlier today while ambulating to porch. Denied head trauma or LOC. Denied chest pain. Upon arrival to ER Laboratory workup showed a WBC of 27.8, hemoglobin 10.5, hematocrit 33.2 and a platelet count of 591. Arterial blood gases showed a pH of 7.47, pCO2 37.2, PO2 of 56.4 and a bicarb of 26.8 on 3 L of O2 via nasal cannula. Sodium 131, potassium 3.4, chloride 91, bicarb 24, BUN 16 and creatinine 1.0.Lactic acid of 2.8. AST of 78, ALT of 28 and alkaline phosphatase of 123. Urinalysis showed positive nitrites, negative leukocyte esterase, 3+ bacteria. COVID-19 antigen negative-PCR pending.Patient was started on vancomycin and aztreonam Hospital course Patient was admitted for evaluation and management of hospital-acquired pneumonia, she was started on broad-spectrum antibiotics, chest imaging consistent with bronchitis MRSA nares PCR positive, she remained afebrile, urine culture grew E. coli, no bacteremia Leukocytosis improved Covid PCR negative She did exhibit right arm weakness, requested CTA head and neck which showed 70% stenosis of left internal carotid, I gave her referral with Dr. Miller, MRI brain did not show any acute ischemic event, PT deemed her stable to be discharged home, she does have a walker at home, she also qualified for oxygen at the time of discharge discharged home on 2 L, she will be discharged on doxycycline for MRSA coverage and Levaquin for E. coli coverage. Physical Exam Narrative: EXAM NARRATIVE: Bilateral breath sound without active wheezing Mild crackles at the bases Doing well on 2 L nasal cannula Appears extremely dry with dry cracked lips EOMI, PERRLA S1, S2 Abdomen soft Lower extremity no edema EOMI, PERRLA Right arm weakness, sensations are intact, she is able to move her right arm against gravity to some extent Right leg no significant weakness No facial asymmetry or tongue deviation EOMI, PERRLA pupils are symmetrical Discharge Data Data Completed and Pending: Completed Studies During Hospitalization Category Date Time Status CT angio headneck * [id number] Rout ine Cat Scan 09/14/21 07:[address] head wo con* [id number] Stat Cat Scan 09/13/21 13:50 Completed XR chest 1V calin ble [id number] Stat Exams 09/12/21 15:48 Completed XR hip RT 2-3V wo /w pel* [id number] Rout ine Exams 09/13/21 02:03 Completed CV. echo complete * [id number] Routine Ultrasound 09/13/21 07:56 Completed Pending at discharge Category Date Time Status Bacterial Antigen Routine Lab 09/15/21 08:02 Ordered Blood Culture Sta t Lab 09/12/21 19:50 Results Legionella Antige n STAT Routine Lab 09/15/21 08:02 Ordered MRSA by PCR Routi ne Lab 09/14/21 21:00 [facility] SARS-CoV-2 RNA Routine Lab 09/12/21 16:04 Received Sputum Culture an d Gram Stain Stat Lab 09/15/21 08:02 Ordered MR head wo con* [id number] Routine MRI 09/15/21 10:15 Ordered Labs from last 24 hours 09/15/21 09/15/21 09/15/21 06:39 06:05 06:05 WBC 16.1 H RBC 3.93 L Hgb 9.4 L Hct 31.0 L MCV 78.9 L MCH 23.9 L MCHC 30.3 RDW 16.4 H Plt Count 677 H MPV 9.7 Lymph % (Auto) Not Reportable [place] % (Auto) Not Reportable Lymph # (Auto) Not Reportable [place] # (Auto) Not Reportable Total Counted 100 Atypical Lymphs % 0.0 Absolute Neutrophi ls 9.2 H Segmented Neutroph ils 50 Abs Segm Neuts (Ma n) 8.1 H Band Neutrophils 7.0 Abs Band Neuts (Ma n) 1.1 Absolute Lymphocyt es 4.5 H Lymphocytes (Manua l) 28 Monocytes (Manual) 3.0 Absolute Monocytes 0.5 Eosinophils (Manua l) 7 Absolute Eosinophi ls 1.1 H Basophils (Manual) 0.0 Absolute Basophils 0.0 Metamyelocytes 3.0 Myelocytes 2.0 Platelet Estimate Increased H Giant Platelets Trace Polychromasia Trace Poikilocytosis 1+ H Microcytosis 1+ H Ovalocytes 1+ H Sodium 138 Potassium 4.2 Chloride 104 Carbon Dioxide 25 Anion Gap 13.2 BUN 10 Creatinine 0.6 GFR Calculation 104.2 Glucose 157 H POC Glucose 189 H Calculated Osmolal ity 288 Calcium 9.2 09/14/21 09/14/21 09/14/21 21:14 17:24 11:55 WBC RBC Hgb Hct MCV MCH MCHC RDW Plt Count MPV Lymph % (Auto) [place] % (Auto) Lymph # (Auto) [place] # (Auto) Total Counted Atypical Lymphs % Absolute Neutrophi ls Segmented Neutroph ils Abs Segm Neuts (Ma n) Band Neutrophils Abs Band Neuts (Ma n) Absolute Lymphocyt es Lymphocytes (Man[place] l) Monocytes (Manual) Absolute Monocytes Eosinophils (Manua l) Absolute Eosinophi ls Basophils (Manual) Absolute Basophils Metamyelocytes Myelocytes Platelet Estimate Giant Platelets Polychromasia Poikilocytosis Microcytosis Ovalocytes Sodium Potassium Chloride Carbon Dioxide Anion Gap BUN Creatinine GFR Calculation Glucose POC Glucose 196 H 264 H 294 H Calculated Osmolal ity Calcium Vitals: Last Vital Signs Temp 97.8 F 09/15/21 08:00 Pulse 95 09/15/21 09:01 Resp 20 H 09/15/21 09:01 BP 129/81 11/30/21 08:52 Pulse Ox 98 09/15/21 09:01 Discharge Plan Discharge Patient Disposition: Home Condition: Stable Prescriptions: New Lasix 20 mg tablet 10 mg PO .other day Qty: 60 RF: 1 doxycycline monohydrate 100 mg capsule 100 mg PO DAILY Qty: 10 RF: 0 Medrol (Pankaj) 4 mg tablets,dose pack See Rx Instructions .ROUTE .COMPLEX Qty: 21 RF: 0 albuterol sulfate 90 mcg/actuation HFA aerosol inhaler 1 inh inhalation Q6H Qty: 8.5 RF: 3 levofloxacin 750 mg tablet 750 mg PO DAILY 5 Days Qty: 5 RF: 0 Continued hydromorphone 4 mg tablet 4 mg PO QID PRN (Reason: pain) 30 Days Qty: 120 RF: 0 cyclobenzaprine 10 mg tablet 10 mg PO TID PRN (Reason: muscle spasm) 30 Days Qty: 90 RF: 1 pregabalin [Lyrica] 150 mg capsule 150 mg PO BID@0800,1800 30 Days Qty: 60 RF: 1 ergocalciferol (vitamin D2) 1,250 mcg (50,000 unit) capsule 1,250 mcg PO Q7D Qty: 4 RF: 2 (DME) pen needle, diabetic [Comfort EZ Pen [place]] 31 gauge x 5/16 needle See Rx Instructions .Route Qty: 100 RF: 6 Levemir FlexTouch U-100 Insuln 100 unit/mL (3 mL) insulin pen 10 unit SUBCUT DAILY@08 Qty: 15 RF: 2 Repatha SureClick 140 mg/mL pen injector 140 mg SUBCUT .w45wist Qty: 2 RF: 5 (DME) COCK UP SPLINT See Rx Instructions .Route .MEDSUPPLY Qty: 2 RF: 0 quetiapine 200 mg tablet 200 mg PO DAILY Qty: 30 RF: 1 albuterol sulfate [Ventolin HFA] 90 mcg/actuation HFA aerosol inhaler 2 puff INHALATION QID PRN (Reason: shortness of breath or wheezing) 30 Days Qty: 6.7 RF: 2 nitroglycerin 0.4 mg tablet, sublingual See Rx Instructions .ROUTE .COMPLEX Qty: 25 RF: 3 oxybutynin chloride 5 mg tablet extended release 24hr 5 mg PO DAILY Qty: 30 RF: 2 duloxetine 60 mg capsule, delayed rel sprinkle 60 mg PO DAILY@08 30 Days Qty: 30 RF: 0 losartan 50 mg tablet 50 mg PO DAILY@0800 Qty: 30 RF: 6 isosorbide mononitrate 60 mg tablet extended release 24 hr 60 mg PO BID@ Qty: 180 RF: 0 (DME) pen needle, diabetic [Comfort EZ Pen [place]] 32 gauge x 5/32 needle See Rx Instructions .Route Qty: 100 RF: 2 insulin lispro [Humalog KwikPen Insulin] 100 unit/mL insulin pen See Rx Instructions SUBCUT TID Qty: 15 RF: 1 atorvastatin 80 mg tablet 80 mg PO DAILY Qty: 30 RF: 3 Adult Aspirin Regimen 81 mg tablet,delayed release (DR/EC) 81 mg PO DAILY Qty: 30 RF: 5 Brilinta 90 mg tablet 90 mg PO BID@ Qty: 180 RF: 4 acetaminophen 325 mg Tablet 650 mg PO Q6H PRN (Reason: Mild/Mod Pain Or Temp >/= 101) Qty: 30 RF: 0 Discontinued doxycycline hyclate 100 mg capsule 100 mg PO BID 10 Days Qty: 20 RF: 0 furosemide [Lasix] 40 mg tablet 40 mg PO BID@0800,2100 PRN (Reason: Edema) Qty: 60 RF: 12 midodrine 5 mg tablet 5 mg PO BID@0800,2100 Qty: 60 RF: 5 Discharge Orders: Discharge Order (Routine); Ordered 09/15/21 Ordered By: Darrell Cunha Other Ambulatory Orders: DME: Oxygen (Order) Location: None Selected Ordered By: Darrell Cunha Referrals: Naomy Goodwin FNP [Primary Care Provider] - 09/17/21 2:20 pm Ernesto Miller MD [Physician] - 09/24/21 12:45 pm (for 70% leftICA stenosis) [facility], [Staff Physician] - ([facility] has accepted you to their services. They will be contacting you about a time to admit you to their services, if you have any questions or concerns please call them at [phone].) Discharge Diet: Cardiac Discharge Activity: Increase activity as tolerated Patient Instructions: Furosemide (By mouth), Doxycycline (By mouth), Albuterol (By breathing), Methylprednisolone (By mouth), Opioid Safety Discharge Attestations Time Spent in Discharge Care*: less than 30 min Status at Discharge: Cognitive status at discharge: mildly impaired cognition , Behavioral status at discharge: cooperative , Quality Metrics Clinical Quality Measures During this hospital stay, did patient experience: None Coding Level of Care Code Acute g FW AK note Diagnoses Fall W19.XXXA Pneumonia J18.9 Sepsis A41.9 Numbness and tingling in both hands R20.0; R20.2 Hospital-acquired pneumonia J18.9; Y95 Hoarseness of voice R49.0 Right arm weakness R29.898 Acute ischemic left ICA stroke I63.232
--- NOTE | 2021-09-15 12:00 | PC.SOCIAL ---
IMM update IMM updated with patient. Verbalized an understanding. Initialled, dated, timed, and placed in chart.
[2021-09-15 12:05] LABS: Glucose Point of Care 242 mg/dL (70-110)
[2021-09-15 14:02] LABS: Quest SARS-CoV-2 RNA NOT DETECTED (NOT DETECTED)
--- NOTE | 2021-09-15 14:30 | MR_ITS ---
WS: [id number] MRI HEAD WITHOUT CONTRAST TECHNIQUE: Sagittal T1, T2 axial, T2 axial FLAIR, axial and coronal T1 images, axial susceptibility w eighted imaging, axial diffusion weighted images, and coronal T2 images were obtained. CLINICAL INFORMATION: right arm weakness, ica stenosis COMPARISON: CTa September 14, 2021 FINDINGS: No evidence of restricted diffusion to suggest acute ischemia. Tiny punctate focus of T2 shine throug h with tiny chronic lacunar infarcts right posterior periventricular white matter. Ventricular system and basal cisterns are patent. Moderate small vessel changes. Moderate parenchymal volume loss. Smal l vessel changes in the chucky. Normal posterior fossa. Normal vascular flow voids at the skull base. N o extra-axial fluid collections. No evidence of mass or mass effect. Paranasal sinuses and mastoid ai r cells are well aerated.No hemosiderin on susceptibly weighted images. Chronic lacunar infarct in th e right centrum semiovale. Normal optic chiasm and pituitary infundibulum. Moderate symmetric atrophy temporal lobes and hippoca mpal formations. MR/MR head wo con* [id number] IMPRESSION: 1. No evidence of restricted diffusion to suggest acute ischemia. 2. Moderate small vessel changes with moderate parenchymal volume loss. Small vessel changes in the chucky. 3. Chronic lacunar infarct in the right centrum semiovale. 4. Moderate symmetric atrophy temporal lobes and hippocampal formations.
--- NOTE | 2021-09-15 14:42 | PC.OT ---
OT TREATMENT HELD DUE TO SCHEDULED PATIENT DISCHARGE
== END 2021-09-15 18:15 | disposition home health service (06) | DRG 871 ==
LOC: ER 16:08 → MEDSURG 19:05
PROVIDERS: Hospitalist; Admitting Provider Internal Medicine; Emergency Provider Family Medicine; PCP Nurse Practitioner Family; Visit Provider Internal Medicine
DX: A41.9 Sepsis, unspecified organism (principal); J18.9 Pneumonia, unspecified organism; N39.0 Urinary tract infection, site not specified; J96.11 Chronic respiratory failure with hypoxia; Y95 Nosocomial condition; J40 Bronchitis, not specified as acute or chronic; Z99.81 Dependence on supplemental oxygen; I11.0 Hypertensive heart disease with heart failure; I50.9 Heart failure, unspecified; E11.42 Type 2 diabetes mellitus with diabetic polyneuropathy; I25.10 Atherosclerotic heart disease of native coronary artery without angina pectoris; Z95.5 Presence of coronary angioplasty implant and graft; W19.XXXA Unspecified fall, initial encounter; G89.29 Other chronic pain; M25.551 Pain in right hip; F17.210 Nicotine dependence, cigarettes, uncomplicated; Z86.73 Personal history of transient ischemic attack (TIA), and cerebral infarction without residual deficits; E78.2 Mixed hyperlipidemia; M79.7 Fibromyalgia; I25.2 Old myocardial infarction; Z87.440 Personal history of urinary (tract) infections; E55.9 Vitamin D deficiency, unspecified; Z96.652 Presence of left artificial knee joint; Z98.1 Arthrodesis status; Z79.02 Long term (current) use of antithrombotics/antiplatelets; Z79.82 Long term (current) use of aspirin; Z79.51 Long term (current) use of inhaled steroids; Z79.891 Long term (current) use of opiate analgesic; Z79.4 Long term (current) use of insulin; B96.20 Unspecified Escherichia coli [E. coli] as the cause of diseases classified elsewhere; I65.22 Occlusion and stenosis of left carotid artery; E78.00 Pure hypercholesterolemia, unspecified; I95.1 Orthostatic hypotension; E66.9 Obesity, unspecified; Z68.36 Body mass index [BMI] 36.0-36.9, adult
CPT/HCPCS: 36415; 36416; 36600; 70450; 70496; 70498; 70551; 71045; 73502; 80048; 80051; 80053; 80202; 81001; 82009; 82330; 82805; 82962; 83605; 85007; 85025; 87040; 87077; 87086; 87186; 87426; 87635; 87641; 93306; 94640; 96365; 96367; 96372; 96375; 97110; 97116; 97161; 97166; 97530; 99285; J1644; J1815; J2270; J2405; J3370; J3490; J7050; J7626; Q9967

== ENCOUNTER → 2021-09-29 16:00 | Outpatient (BNVA) | payer MEDICARE, MEDICAID, SELFPAY | PROVIDERS: PCP Nurse Practitioner Family; Visit Provider Nurse Practitioner Family | DX: E11.65 Type 2 diabetes mellitus with hyperglycemia (principal); E11.621 Type 2 diabetes mellitus with foot ulcer; L97.509 Non-pressure chronic ulcer of other part of unspecified foot with unspecified severity | CPT/HCPCS: 80053; 80061; 83036; 87070; 87075; 87077; 87184; 87205 ==

== ENCOUNTER 2021-10-13 13:13 | Outpatient (CLI) | payer MEDICARE, MEDICAID, SELFPAY | END 2021-10-13 13:14 | disposition home or self-care (01) | LOC: WOUND 13:15 | PROVIDERS: PCP Nurse Practitioner Family; Visit Provider Nurse Practitioner Family | DX: E11.621 Type 2 diabetes mellitus with foot ulcer (principal); L97.511 Non-pressure chronic ulcer of other part of right foot limited to breakdown of skin; F17.210 Nicotine dependence, cigarettes, uncomplicated; J44.9 Chronic obstructive pulmonary disease, unspecified | CPT/HCPCS: 11042; 99214 ==

== ENCOUNTER 2021-10-20 10:54 | Outpatient (CLI) | payer MEDICARE, MEDICAID, SELFPAY | END 2021-10-20 10:55 | disposition home or self-care (01) | LOC: WOUND 10:57 | PROVIDERS: PCP Nurse Practitioner Family; Visit Provider Nurse Practitioner Family | DX: E11.621 Type 2 diabetes mellitus with foot ulcer (principal); L97.519 Non-pressure chronic ulcer of other part of right foot with unspecified severity; J44.9 Chronic obstructive pulmonary disease, unspecified; F17.210 Nicotine dependence, cigarettes, uncomplicated; E11.9 Type 2 diabetes mellitus without complications | CPT/HCPCS: 99212 ==

== ENCOUNTER → 2021-11-11 13:52 | Outpatient (BNVA) | payer MEDICARE, MEDICAID, SELFPAY | PROVIDERS: PCP Nurse Practitioner Family; Visit Provider Anesthesiology | DX: G89.29 Other chronic pain (principal); M47.817 Spondylosis without myelopathy or radiculopathy, lumbosacral region; M47.819 Spondylosis without myelopathy or radiculopathy, site unspecified; M25.569 Pain in unspecified knee; Z79.891 Long term (current) use of opiate analgesic | CPT/HCPCS: 99214 ==

== ENCOUNTER 2021-11-17 10:59 | Outpatient (CLI) | payer MEDICARE, MEDICAID, SELFPAY | END 2021-11-17 11:00 | disposition home or self-care (01) | LOC: WOUND 11:00 | PROVIDERS: PCP Nurse Practitioner Family; Visit Provider Emergency Medicine | DX: E11.621 Type 2 diabetes mellitus with foot ulcer (principal); L97.521 Non-pressure chronic ulcer of other part of left foot limited to breakdown of skin; L97.511 Non-pressure chronic ulcer of other part of right foot limited to breakdown of skin; F17.210 Nicotine dependence, cigarettes, uncomplicated; J44.9 Chronic obstructive pulmonary disease, unspecified | CPT/HCPCS: 97597 ==

== ENCOUNTER 2021-12-02 12:25 | Inpatient (IN) | payer MEDICARE, MEDICAID, SELFPAY ==
[2021-12-02] VITALS (17 sets, daily range): BP systolic 112–137; BP diastolic 79–83; PULSE 100–150; RESP 18–29; TEMP 39.6; O2SAT 83–100; BMI 36.8
--- NOTE | 2021-12-02 12:32 | ECG_ITS ---
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 Measurements Intervals [place] Rate: 150 P: 195 MO: 141 QRS: 20 QRSD: 94 T: 51 QT: 320 QTc: 505 Interpretive Statements SINUS TACHYCARDIA, POSSIBLE ATRIAL FLUTTER POSSIBLE INFERIOR MYOCARDIAL INFARCTION , PROBABLY OLD [30 ms Q WAVE IN II/aVF] Compared to ECG 08/25/2021 03:11:43 Myocardial infarct finding now present Sinus rhythm no longer present First degree AV block no longer present Intraventricular conduction delay no longer present T-wave abnormality no longer present Electronically Signed On 12-03-2021 20:52:22 TRAINING LEAD by Brad Lyles M.D. [id number]
--- NOTE | 2021-12-02 12:32 | XR_ITS ---
WS: [id number] Portable AP semiupright chest, 12/02/2021 Clinical Data: dyspnea Comparison: Portable chest, 09/12/2021. Findings: There is a patchy opacity extending from the left hilum into the lingula. There is also pat gilbert opacity in the right hilum extending into the right lower lobe. The lung peripheries are clear. T he heart is normal. No nodules, masses or effusions are seen. Monitor leads are on the chest wall. XR/XR chest 1V portable [id number] Impression: Bilateral patchy pulmonary opacities most consistent with acute pneumonia.
[2021-12-02 12:58] LABS: ABG PCO2 33.2 mmHg (35-45); ABG PH Result 7.42 (7.35-7.45); Arterial Blood Gas Hematocrit 36.8 % (37-47); Base Excess ABG -2.5 mmol/L (-2.0-2.0); Blood Gas Operator Identificat ED; Blood Gas Sample Site Brachial, left; Blood Gas Sample Type Arterial; HCO3 ABG 21.4 mmol/L (22-26); Oxygen Device BIPAP; PO2 ABG 65.5 mmHg (80.0-100.0)
[2021-12-02] MEDS: ipratropium-albuterol 3 mL Neb INHALATION ×3 (13:04)
[2021-12-02] MEDS: cefepime 1,000 MG in sodium chloride 0.9% (plus) 50 ML 100 MG IV (13:10)
[2021-12-02] MEDS: acetaminophen 500 mg Tablet 1000 MG PO (13:20)
[2021-12-02 13:22] LABS: Basophils # 0.1 10^3/uL (0.0-0.1); Basophils % 0.5 %; Eosinophils # 0.1 10^3/uL (0.0-0.8); Eosinophils % 0.4 %; Hematocrit 38.5 % (37.0-47.0); Hemoglobin 11.5 g/dL (11.5-15.3); Lymphocytes # 1.3 10^3/uL (0.8-4.8); Lymphocytes % 6.6 %; Mean Corpuscular HGB Conc 29.9 g/dL (30.0-36.0); Mean Corpuscular Hemoglobin 22.3 pg (28.0-34.0); Mean Corpuscular Volume 74.6 fl (81-99); Mean Platelet Volume 9.3 fL (7.4-10.4); Monocytes % 4.9 %; Neutrophils # 17.23 10^3/uL (1.8-7.7); Nucleated Red Blood Cells % 0 %; Platelet Count 703 10^3/cmm (130-400); Red Blood Count 5.16 10^6/uL (4.1-5.3); Red Cell Distribution Width 18.3 % (12.1-15.1); White Blood Count 19.8 10^3/uL (4.0-10.0)
--- NOTE | 2021-12-02 13:24 | ED_ITS ---
HPI - General Adult General: Chief complaint: Altered Mental Status Stated complaint: AMS/ TACHYCARDIA Time Seen by Provider: 12/02/21 12:31 History of Present Illness: Patient is a 56-year-old female with history of CAD, CHF, diabetes, QIANA presents the emergency room for evaluation acute altered mental status, hypoxic respiratory distress. Per EMS, patient's family became concerned the patient was breathing difficult earlier this morning and called EMS. However patient initially declined transport to the emergency room. However family called EMS again this patient has become increasingly more short of breath. EMS was alerted patient was brought to the emergency room for a ssessment. On arrival, patient is AAO x2, moderately confused, rest of history limited. Onset: 5 hrs ago Duration:ongoing Location:home Severity:severe Associated symptoms: Reports dyspnea and palpitations Review of Systems General: Reports: ROS unobtainable due to medical condition and ROS unobtainable due to mental status Const: Reports: fever(s) and chills Card: Reports: palpitations Resp: Reports: dyspnea Musc: Denies: extremity pain PFSH ED PFSH: Medical History (HFpEF) heart failure with preserved ejection fraction Acute exacerbation of CHF (congestive heart failure) Acute kidney injury Anemia CAD (coronary artery disease) Candidiasis of vagina Chest pain Chest pain, midsternal Chronic knee pain Chronic left-sided low back pain Chronic obstructive pulmonary disease, unspecified Chronic pain of left knee Compression fracture of L2 lumbar vertebra COPD (chronic obstructive pulmonary disease) COPD exacerbation Coronary artery disease due to type 2 diabetes mellitus Current every day smoker CVA (cerebral vascular accident) Dehydration Demand ischemia Diabetes type 2, uncontrolled Dyslipidemia Dyspnea Elevated troponin Encounter for long-term opiate analgesic use Essential hypertension Exposure to COVID-19 virus Fall Fibromyalgia, primary History of CVA (cerebrovascular accident) History of hypoglycemic coma Hyperlipidemia, mixed Hypotension Insomnia Intervertebral disc disorder of lumbar region with myelopathy Leukocytosis Low back pain radiating to both legs Lumbosacral spondylosis without myelopathy Neuropathy NSTEMI (non-ST elevated myocardial infarction) Thought to be secondary to plaque rupture. Angiogram July 04 no flow- limiting lesions, or restenosis of previous stent from April 2020 Numbness and tingling in both hands Obesity (BMI 35.0-39.9 without comorbidity) Opioid contract exists Osteoarthritis of left knee Osteoarthritis of spine at multiple levels Pericardial effusion Peripheral sensory neuropathy due to type 2 diabetes mellitus Pneumonia Pneumonia Pressure ulcer Prosthetic joint infection Right hip pain Sepsis Septic arthritis of knee, left Syncope Type 2 diabetes mellitus with diabetic autonomic (poly)neuropathy Unstable angina Urinary tract infection Vitamin D deficiency Surgical History History of arthroscopic surgery of elbow BILATERAL History of coronary angiogram Angiogram April 2020 with 90% circumflex lesion, drug-eluting stent placed by Dr. Jerome S/p bilateral carpal tunnel release S/P hysterectomy S/P knee surgery RIGHT S/P lumbar fusion DR. Shreya ZAYAS IN [place], [place] L4-L5, L5-S1 Status post left knee replacement Status post lumbar laminectomy Family History Other CAD (coronary artery disease) Cancer Diabetes Social History Smoking and tobacco status: current every day smoker cigarettes Packs smoked per day: 0.5 [ Other cigarette details: PER PATIENT REPORT] Smoking risk assessment/counseling performed?: Yes Alcohol intake: former Desire information about alcohol rehabilitation?: No Counseling given: No Desire information about substance/drug rehabilitation?: No Counseling given: No Caregiver/support person: No Lives independently: Yes Household members: family and other Details: son Housing: Manufactured/Mobile home Marital status: Unknown Marital status details: She and son state she is not service: No Current occupational status: unemployed Pets and animals: Yes History of recent travel: No Current gender identity: Female Physical Exam Const: COMMON NORMALS: alert HENMT: COMMON NORMALS: atraumatic HEAD & SCALP: atraumatic OTHER: +dry mucous membrane Eye: COMMON NORMALS: EOMs intact bilaterally and conjunctivae normal CONJUNCTIVA: Yes conjunctivae normal Neck/C-Spine: COMMON NORMALS: full ROM and supple Resp: OTHER: + Coarse breath sounds with expiratory wheezes, increased work of breathing Cardio: OTHER: + Sinus tachycardia 2+ radial pulses bilaterally GI: COMMON NORMALS: Soft to palpation and non-tender PALPATION: Yes Soft to palpation Extremity: COMMON NORMALS: full ROM Neuro: SENSORIUM/ORIENTATION: Yes alert OTHER: + Unable to perform full neurological exam contact given confusion mild altered mental status. Patient has a GCS 14, AAO x2, occasionally following commands. Psych: OTHER: Unable to assess psychiatric status given underlying altered mental status Course Vital Signs: Vital signs: Vital Signs Temperature 98.1 F 12/03/21 07:28 Pulse Rate 100 12/03/21 08:12 Respiratory Rate 18 12/03/21 08:12 Blood Pressure 135/77 12/03/21 07:28 Pulse Oximetry 94 12/03/21 08:12 MDM - General Adult Medical Decision Making 56-year-old female with full code, history of CAD, CHF, diabetes presenting to emergency room with acute respiratory distress and altered mental status. On arrival, patient is febrile to 103.3. Patient appears to have coarse breath sounds with expiratory wheezes and increased work of breathing. Neurological exam is limited given confusion AAO x2. Upon arrival, patient appears to be hypoxemic to 81 to 85% with increased belly breathing patient was placed on BiPAP. Unclear COVID STATUS this time. Will work-up for altered mental status and increased work of breathing. Ddx broad currenlty. Given tachycardic, initial concern for sepsis is present. However given patient's history of CHF will fluid restrict to 1 L only. Work-up: CBC, BMP, proBNP, troponin x2, EKG x2, chest x-ray, Covid, ABG Intervention: DuoNeb, Solu-Medrol, vancomycin, cefepime, azithromycin IVF, BIPAP, tylenol, reassessment On reassessment at 2:30pm, patient is found in white count 19.8K. Patient appears to be improved on BiPAP. Patient has a PC O2 of 33 and PO2 of 65.5 on 03/06 at 50% on BIPAP. IVC appears to be collapsing with inspiration, will replete with 2L of NS. Covid negative. HR immproved after IVF. CTA consistent with multifocal pneumonia. Disposition: admission Lab Data : 12/03/21 05:42 12/03/21 05:42 Radiology Impressions Chest X-Ray 12/02/21 12:32 Impression: Bilateral patchy pulmonary opacities most consistent with acute pneumonia. Chest CTA 12/02/21 13:44 IMPRESSION: 1. No evidence of pulmonary embolism. 2. Patulous consolidations within both lungs, predominantly centered within the lung bases, consistent with multifocal pneumonia. Laboratory Results WBC 19.8 10^3/uL (4.0-10.0) H 12/02/21 13:05 RBC 5.16 10^6/uL (4.1-5.3) 12/02/21 13:05 Hgb 11.5 g/dL (11.5-15.3) 12/02/21 13:05 Hct 38.5 % (37.0-47.0) 12/02/21 13:05 MCV 74.6 fl (81-99) L 12/02/21 13:05 MCH 22.3 pg (28.0-34.0) L 12/02/21 13:05 MCHC 29.9 g/dL (30.0-36.0) L 12/02/21 13:05 RDW 18.3 % (12.1-15.1) H 12/02/21 13:05 Plt Count 703 10^3/cmm (130-400) H 12/02/21 13:05 MPV 9.3 fL (7.4-10.4) 12/02/21 13:05 Neut % (Auto) 87.0 % 12/02/21 13:05 Lymph % (Auto) 6.6 % 12/02/21 13:05 Mcminn % (Auto) 4.9 % 12/02/21 13:05 Eos % (Auto) 0.4 % 12/02/21 13:05 Baso % (Auto) 0.5 % 12/02/21 13:05 Neut # (Auto) 17.23 10^3/uL (1.8-7.7) H 12/02/21 13:05 Lymph # (Auto) 1.3 10^3/uL (0.8-4.8) 12/02/21 13:05 Mcminn # (Auto) 1.0 10^3/uL (0.2-0.9) H 12/02/21 13:05 Eos # (Auto) 0.1 10^3/uL (0.0-0.8) 12/02/21 13:05 Baso # (Auto) 0.1 10^3/uL (0.0-0.1) 12/02/21 13:05 Nucleated RBC % (auto) 0 % 12/02/21 13:05 Nucleated RBCs # 0.0 /100WBC 12/02/21 13:05 Specimen Type Arterial 12/02/21 12:33 Sample Site Brachial, left 12/02/21 12:33 ABG pH 7.42 (7.35-7.45) 12/02/21 12:33 ABG pCO2 33.2 mmHg (35-45) L 12/02/21 12:33 ABG pO2 65.5 mmHg (80.0-100.0) L 12/02/21 12:33 ABG HCO3 21.4 mmol/L (22-26) L 12/02/21 12:33 ABG Base Excess -2.5 mmol/L (-2.0-2.0) L 12/02/21 12:33 Freddy Test N/a 12/02/21 12:33 Hematocrit 36.8 % (37-47) L 12/02/21 12:33 O2 Delivery Device Bipap 12/02/21 12:33 FiO2 40.0 % 12/02/21 12:33 Gold Layer ID Ed 12/02/21 12:33 Sodium 137 mmol/L (136-145) 12/02/21 13:05 Potassium 4.6 mmol/L (3.5-5.1) 12/02/21 13:05 Chloride 103 mmol/L (98-107) 12/02/21 13:05 Carbon Dioxide 21 mmol/L (22-29) L 12/02/21 13:05 Anion Gap 17.6 (5-19) 12/02/21 13:05 BUN 9 mg/dL (6-20) 12/02/21 13:05 Creatinine 0.7 mg/dL (0.5-0.9) 12/02/21 13:05 GFR Calculation 87.2 mL/min (90-130) L 12/02/21 13:05 Glucose 267 mg/dL (65-115) H 12/02/21 13:05 Estimat Average Glucose 197 12/02/21 13:05 Hemoglobin A1c 8.5 % (4.0-6.0) H 12/02/21 13:05 Calculated Osmolality 292 mOsm/kg (285-295) 12/02/21 13:05 Lactate 2.6 mmol/L (0.5-2.2) H 12/02/21 13:05 Calcium 9.5 mg/dL (8.5-10.5) 12/02/21 13:05 Troponin T Baseline 39 ng/L (0-10) H 12/02/21 13:05 Troponin T 120 Minute 35.41 ng/L (0-10) H 12/02/21 15:48 Delta Troponin T -3.59 ABS# (0-10) L 12/02/21 15:48 NT-Pro-B Natriuret Pep 212 pg/mL (0-125) H 12/02/21 13:05 Coronavirus 229E (PCR) Not detected (NOT DETECT) 12/02/21 14:00 SARS-CoV-2 (PCR) Not detected (NOT DETECT) 12/02/21 14:00 Imaging Data Other Imaging: Radiologist's impression: [facility] [address] [place] [address] XRay Report Signed Patient: Mayra Ascencio Unit #: [id number] : 1965 Age/Sex: 56 / F ADM Date: 12/02/21 Loc: ER Room/Bed: Attending Dr: Ordering Provider/Ordering MD: Duran Boyd MD Date of Service: 12/02/21 Procedure(s): XR chest 1V portable [id number] Accession Number(s): [id number] Report Number: [id number] WS: [id number] Portable AP semiupright chest, 12/02/2021 Clinical Data: dyspnea Comparison: Portable chest, 09/12/2021. Findings: There is a patchy opacity extending from the left hilum into the lingula. There is also patchy opacity in the right hilum extending into the right lower lobe. The lung peripheries are clear. The heart is normal. No nodules, masses or effusions are seen. Monitor leads are on the chest wall. XR/XR chest 1V portable [id number] Impression: Bilateral patchy pulmonary opacities most consistent with acute pneumonia. ? ? Dictated By: Bryanna Huber MD Signed By: Bryanna Huber MD Signed Date/Time: 12/02/21 1408 DD/ [id number] Scan Report Signed Patient: Mayra Ascencio Unit #: [id number] : 1965 [facility][id number] Age/Sex: 56 / F ADM Date: 12/02/21 Loc: ER Room/Bed: Attending Dr: Ordering Provider/Ordering MD: Duran Boyd MD Date of Service: 12/02/21 Procedure(s): CT angio chest PE protcl [id number] Accession Number(s): [id number] Report Number: [id number] PROCEDURE INFORMATION: Exam: CTA Chest With Contrast Exam date and time: 12/02/2021 1:44 PM Age: 56 years old Clinical indication: Shortness of breath; Prior surgery; Surgery type: Stents x 7; Additional info: Eval for pe TECHNIQUE: Imaging protocol: Computed tomographic angiography of the chest with contrast. 3D rendering (Not supervised by radiologist): MIP and/or 3D reconstructed images were created by the technologist. Radiation optimization: All CT scans at this facility use at least one of these dose optimization techniques: automated exposure control; mA and/or kV adjustment per patient size (includes targeted exams where dose is matched to clinical indication); or iterative reconstruction. Contrast material: OMNI 350; Contrast volume: 72 ml; Contrast route: INTRAVENOUS (IV);? COMPARISON: CT angio chest PE protcl [id number] 08/24/2021 9:13 PM RADIATION DOSE METRICS: Total DLP (mGy-cm): 549.35 FINDINGS: Pulmonary arteries: No evidence of pulmonary embolism. Aorta: No aortic aneurysm. No aortic dissection. Lungs: Patulous consolidations noted within both lungs, predominantly centered at the lung bases. Calcified granuloma noted in the left lung base. Pleural spaces: No pneumothorax. No pleural effusion. Heart: Calcifications of the coronary arteries and coronary artery stents are noted. No cardiomegaly. No pericardial effusion. Lymph nodes: Prominent mediastinal and hilar lymph nodes, most likely reactive to the findings within the lungs. Some of the mediastinal and hilar lymph nodes are partially calcified suggestive of prior granulomatous disease. Bones/joints: No acute fracture. Soft tissues: Unremarkable. CT/CT angio chest PE protcl [id number] IMPRESSION: 1. No evidence of pulmonary embolism. 2. Patulous consolidations within both lungs, predominantly centered within the lung bases, consistent with multifocal pneumonia. ? Dictated By: SmBashir conklin DO Signed By: Bashir Lee DO Signed Date/Time: 12/02/21 1708 DD/ 1344 Critical Care Time Critical Care Time: Critical Care Time: Yes Total Critical Care Time: 35 Attestation: The high probability of a clinically significant, sudden or life threatening deterioration of the patient's respiratory system(s) required my full and direct attention, intervention and personal management. The critical care time is as shown. This time is in addition to time spent performing any reported procedures but includes the following: [x] Data and vital sign review and interpretation [x] Patient assessment, examination and intervention [x] Documentation [x] Medication orders and management Discharge Plan Discharge Patient Disposition: Admitted As Inpatient Admit Provider: Darrell Cunha Clinical Impression: Acute confusion, Fever, Acute hypoxemic respiratory failure, Pneumonia Condition: Stable Coding Level of Care Code ED Data Warehouse Analyst for Nahed Fwd Exam Detailed
[2021-12-02] MEDS: vancomycin 1,000 MG in sodium chloride 0.9% 250 ML 250 MG IV (13:28)
[2021-12-02] MEDS: azithromycin 250 MG in sodium chloride 0.9% 250 ML IV (13:30)
--- NOTE | 2021-12-02 13:44 | CTR_ITS ---
PROCEDURE INFORMATION: Exam: CTA Chest With Contrast Exam date and time: 12/02/2021 1:44 PM Age: 56 years old Clinical indication: Shortness of breath; Prior surgery; Surgery type: Stents x 7; Additional info: Eval for pe TECHNIQUE: Imaging protocol: Computed tomographic angiography of the chest with contrast. 3D rendering (Not supervised by radiologist): MIP and/or 3D reconstructed images were created by the technologist. Radiation optimization: All CT scans at this facility use at least one of these dose optimization techniques: automated exposure control; mA and/or kV adjustment per patient size (includes targeted exams where dose is matched to clinical indication); or iterative reconstruction. Contrast material: OMNI 350; Contrast volume: 72 ml; Contrast route: INTRAVENOUS (IV); COMPARISON: CT angio chest PE protcl [id number] 08/24/2021 9:13 PM RADIATION DOSE METRICS: Total DLP (mGy-cm): 549.35 FINDINGS: Pulmonary arteries: No evidence of pulmonary embolism. Aorta: No aortic aneurysm. No aortic dissection. Lungs: Patulous consolidations noted within both lungs, predominantly centered at the lung bases. Calcified granuloma noted in the left lung base. Pleural spaces: No pneumothorax. No pleural effusion. Heart: Calcifications of the coronary arteries and coronary artery stents are noted. No cardiomegaly. No pericardial effusion. Lymph nodes: Prominent mediastinal and hilar lymph nodes, most likely reactive to the findings within the lungs. Some of the mediastinal and hilar lymph nodes are partially calcified suggestive of prior granulomatous disease. Bones/joints: No acute fracture. Soft tissues: Unremarkable. CT/CT angio chest PE protcl [id number] IMPRESSION: 1. No evidence of pulmonary embolism. 2. Patulous consolidations within both lungs, predominantly centered within the lung bases, consistent with multifocal pneumonia.
[2021-12-02 13:45] LABS: Lactate (Lactic Acid level) 2.6 mmol/L (0.5-2.2)
[2021-12-02 13:46] LABS: Troponin(5th) Baseline 39 ng/L (0-10)
[2021-12-02] MEDS: dilTIAZem 60 mg Tablet PO (13:49)
[2021-12-02] MEDS: sodium chloride 0.9% 1,000 ML 999 ML IV ×2 (13:50→14:35)
[2021-12-02 13:57] LABS: Anion Gap 17.6 (5-19); Blood Urea Nitrogen 9 mg/dL (6-20); Calcium 9.5 mg/dL (8.5-10.5); Carbon Dioxide 21 mmol/L (22-29); Chloride 103 mmol/L (98-107); Glomerular Filtration Rate 87.2 mL/min (90-130); Glucose 267 mg/dL (65-115); NT Pro B Type Natriuretic Pept 212 pg/mL (0-125); Osmolality Calculated 292 mOsm/kg (285-295); Potassium 4.6 mmol/L (3.5-5.1); Sodium 137 mmol/L (136-145)
--- NOTE | 2021-12-02 14:32 | ECG_ITS ---
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 Measurements Intervals [place] Rate: 136 P: -14 KS: 163 QRS: 12 QRSD: 100 T: 49 QT: 351 QTc: 530 Interpretive Statements SINUS TACHYCARDIA MINIMAL ST DEPRESSION [0.025+ mV ST DEPRESSION] Compared to ECG 12/02/2021 13:13:15 ST (T wave) deviation now present Myocardial infarct finding no longer present Electronically Signed On 12-02-2021 21:27:20 AIRPORT SECURITY SCREENER by Marlee Olmos M.D. [id number]
[2021-12-02 16:27] LABS: Troponin 5 2HR 35.41 ng/L (0-10)
[2021-12-02 16:29] LABS: Troponin 5 2HR Delta -3.59 ABS# (0-10)
[2021-12-02 16:56] LABS: Adenovirus Not Detected (NOT DETECT); Chlamydia Pneumoniae Not Detected (NOT DETECT); Coronavirus 229E,HKU1,NL63,OC4 Not Detected (NOT DETECT); Human Metapneumovirus Not Detected (NOT DETECT); Human Rhinovirus/Enterovirus Not Detected (NOT DETECT); Influenza A Not Detected (NOT DETECT); Influenza A H1 Not Detected (NOT DETECT); Influenza A H1-2009 Not Detected (NOT DETECT); Influenza A H3 Not Detected (NOT DETECT); Influenza B Not Detected (NOT DETECT); Mycoplasma Pneumoniae Not Detected (NOT DETECT); Parainfluenza Virus Type 1 Not Detected (NOT DETECT); Parainfluenza Virus Type 2 Not Detected (NOT DETECT); Parainfluenza Virus Type 3 Not Detected (NOT DETECT); Parainfluenza Virus Type 4 Not Detected (NOT DETECT); Respiratory Syncytial Virus A Not Detected (NOT DETECT); Respiratory Syncytial Virus B Not Detected (NOT DETECT); SARS-COV-2 Not Detected (NOT DETECT)
--- NOTE | 2021-12-02 18:15 | P.HP_ITS ---
Providers/Chief Complaint Primary Care Provider: KATHY Stewart Chief Complaint: AMS/ TACHYCARDIA History of Present Illness Mayra Ascencio is a 56 year old female who present to the hospital for worsening shortness of breath and confusion. Patient was not sure why she was sent. I called her son. Son is 30 years old who takes care of her. He is stating that her symptoms started on 11/27 with pain behind her eyes, runny nose thick yellow sputum however no fever was noticed. She was coughing pretty strongly in last few days, son tried to call the PCP who gave them appointment after 2 to 3 weeks. Because of worsening of her symptoms son wanted to call ambulance however she was reluctant to come to the hospital for evaluation. Son called her sister today. When sister arrived she became very confused and was not really responding to their verbal commands. Ambulance was called at that time. In the ER she was diagnosed with community-acquired pneumonia she was given IV steroids she is septic she was given 2 L of normal saline, IV steroids 125 mg along vancomycin cefepime and azithromycin Covid PCR negative At the time my relation patient is awake and alert, she is stating that she is vaccinated for COVID-19, she lives with her son and smokes 2 to 3 cigarettes a day. Son gives her sliding scale insulin and states her sugar mostly runs above 200, recently her carotid surgery was delayed because of coronary disease and indication of dual antiplatelet therapy At home she is supposed to use 3 L of oxygen at night however she has been noncompliant with it. Her Lasix dose recently has been cut down to 20 mg from 40 mg. Patient was hypoxic, tachycardic, febrile, she was 85% on room air, she was put on BiPAP to decrease work of breathing settings 15/850% Review of Systems Const: Reports: chills, body aches and fatigue Eyes: Denies: change in vision, photophobia or eye discomfort ENMT: Denies: throat pain Card: Denies: chest pain Resp: Reports: dyspnea, productive cough, change in phlegm color and chest congestion GI: Denies: abdominal pain : Denies: flank pain Musc: Denies: neck pain Skin/Breast: Reports: rash and pruritus Neuro: Denies: headache(s) Psych: Reports: anxiety Endo: Denies: polyuria Xavier/Lymph: Denies: easy bruising All/Imm: Denies: urticaria Medications/Allergies Home Medications Medication Instructions Recorded Confirmed Last Taken Type acetaminophen 325 mg tablet 650 mg PO Q6H PRN #30 tab 10/16/20 12/02/21 04/21/21 Rx nitroglycerin 0.4 mg sublingual See Rx Instructions .ROUTE 06/05/21 12/02/21 Unknown Rx tablet .COMPLEX #25 tab losartan 50 mg tablet 50 mg PO DAILY@0800 #30 tab 07/06/21 12/02/21 Unknown Rx ergocalciferol (vitamin D2) 1,250 1,250 mcg PO Q7D #4 cap 07/07/21 12/02/21 08/10/21 Rx mcg (50,000 unit) capsule evolocumab 140 mg/mL subcutaneous 140 mg SUBCUT .f89yeon #2 ml 07/07/21 12/02/21 08/05/21 Rx pen injector (Repatha SureClick) pen needle, diabetic 31 gauge x #100 ea 07/07/21 12/02/21 Unknown Rx 5/16 (Comfort EZ Pen Sunset) pen needle, diabetic 32 gauge x #100 ea 08/11/21 12/02/21 Unknown Rx 5/32 (Comfort EZ Pen Sunset) COCK UP SPLINT #2 ea NS 08/26/21 12/02/21 Unknown Rx quetiapine 200 mg tablet 200 mg PO DAILY #30 tab 09/09/21 12/02/21 Unknown Rx aspirin 81 mg tablet,delayed 81 mg PO DAILY #30 tab 09/15/21 12/02/21 12/02/21 Rx release (Adult Aspirin Regimen) atorvastatin 80 mg tablet 80 mg PO DAILY #30 tab 09/15/21 12/02/21 08/13/21 20:00 Rx ticagrelor 90 mg tablet (Brilinta) 90 mg PO BID@ #180 tab 09/15/21 12/02/21 12/02/21 Rx cyclobenzaprine 10 mg tablet 10 mg PO TID PRN 30 Days #90 tab 11/11/21 12/02/21 Unknown Rx duloxetine 60 mg capsule,delayed 60 mg PO DAILY@08 30 Days #30 cap 11/11/21 12/02/21 Unknown Rx release sprinkle hydromorphone 4 mg tablet 4 mg PO Q6H PRN 30 Days #120 tab 11/11/21 12/02/21 Unknown Rx pregabalin 150 mg capsule (Lyrica) 150 mg PO BID@0800,1800 30 Days 11/11/21 12/02/21 Unknown Rx #60 cap isosorbide mononitrate 60 mg 60 mg PO DAILY #90 tab 11/16/21 12/02/21 Unknown Rx tablet,extended release 24 hr metoprolol succinate 25 mg 25 mg PO DAILY #30 tab 11/16/21 12/02/21 Unknown Rx tablet,extended release 24 hr albuterol sulfate 90 mcg/actuation 1 inh INHALATION Q6H PRN 12/02/21 12/02/21 Unknown History aerosol inhaler furosemide 20 mg tablet (Lasix) 10 mg PO EVERY OTHER DAY 12/02/21 12/02/21 Unknown History oxybutynin chloride 5 mg 5 mg PO DAILY 12/02/21 12/02/21 Unknown History tablet,extended release 24 hr pantoprazole 40 mg tablet,delayed 40 mg PO DAILY 12/02/21 12/02/21 Unknown History release Allergies Allergy/AdvReac Type Severity Reaction Status Date / Time fentanyl Allergy Unknown ALGY-Difficulty Verified 11/16/21 15:55 Breathing adhesive Allergy Unknown Verified 11/16/21 15:55 clindamycin Allergy ADR-Itching Verified 11/16/21 15:55 codeine Allergy Unknown Verified 11/16/21 15:55 hydrocodone Allergy Unknown Verified 11/16/21 15:55 latex Allergy ALGY-Swell Verified 11/16/21 15:55 Lip/Tongue/Throat naproxen [From Naprosyn] Allergy Unknown Verified 11/16/21 15:55 nut - unspecified Allergy ALGY-Anaphy Verified 11/16/21 15:55 laxis oxycodone [From Roxicodone] Allergy ADR-Muscle Verified 11/16/21 15:55 Pain Penicillins Allergy Unknown Verified 11/16/21 15:55 sulfamethoxazole Allergy ADR-Migrain Verified 11/16/21 15:55 [From Bactrim] e trimethoprim [From Bactrim] Allergy ADR-Migrain Verified 11/16/21 15:55 e PFSH Acute PFSH: Medical History (HFpEF) heart failure with preserved ejection fraction Acute exacerbation of CHF (congestive heart failure) Acute kidney injury Anemia CAD (coronary artery disease) Candidiasis of vagina Chest pain Chest pain, midsternal Chronic knee pain Chronic left-sided low back pain Chronic obstructive pulmonary disease, unspecified Chronic pain of left knee Compression fracture of L2 lumbar vertebra COPD (chronic obstructive pulmonary disease) COPD exacerbation Coronary artery disease due to type 2 diabetes mellitus Current every day smoker CVA (cerebral vascular accident) Dehydration Demand ischemia Diabetes type 2, uncontrolled Dyslipidemia Dyspnea Elevated troponin Encounter for long-term opiate analgesic use Essential hypertension Exposure to COVID-19 virus Fall Fibromyalgia, primary History of CVA (cerebrovascular accident) History of hypoglycemic coma Hyperlipidemia, mixed Hypotension Insomnia Intervertebral disc disorder of lumbar region with myelopathy Leukocytosis Low back pain radiating to both legs Lumbosacral spondylosis without myelopathy Neuropathy NSTEMI (non-ST elevated myocardial infarction) Thought to be secondary to plaque rupture. Angiogram July 04 no flow- limiting lesions, or restenosis of previous stent from April 2020 Numbness and tingling in both hands Obesity (BMI 35.0-39.9 without comorbidity) Opioid contract exists Osteoarthritis of left knee Osteoarthritis of spine at multiple levels Pericardial effusion Peripheral sensory neuropathy due to type 2 diabetes mellitus Pneumonia Pneumonia Pressure ulcer Prosthetic joint infection Right hip pain Sepsis Septic arthritis of knee, left Syncope Type 2 diabetes mellitus with diabetic autonomic (poly)neuropathy Unstable angina Urinary tract infection Vitamin D deficiency Surgical History History of arthroscopic surgery of elbow BILATERAL History of coronary angiogram Angiogram April 2020 with 90% circumflex lesion, drug-eluting stent placed by Dr. Jerome S/p bilateral carpal tunnel release S/P hysterectomy S/P knee surgery RIGHT S/P lumbar fusion DR. Shreya ZAYAS IN [place], [place] L4-L5, L5-S1 Status post left knee replacement Status post lumbar laminectomy Family History Other CAD (coronary artery disease) Cancer Diabetes Social History Smoking and tobacco status: current every day smoker cigarettes Packs smoked per day: 0.5 [ Other cigarette details: PER PATIENT REPORT] Smoking risk assessment/counseling performed?: Yes Alcohol intake: former Desire information about alcohol rehabilitation?: No Counseling given: No Desire information about substance/drug rehabilitation?: No Counseling given: No Caregiver/support person: No Lives independently: Yes Household members: family and other Details: son Housing: Manufactured/Mobile home Marital status: Unknown Marital status details: She and son state she is not service: No Current occupational status: unemployed Pets and animals: Yes History of recent travel: No Current gender identity: Female Vitals/I&O/Wt Last Vital Signs Temp 103.3 F H 12/02/21 12:27 Pulse 100 12/02/21 17:56 Resp 19 H 12/02/21 16:39 BP 112/79 12/02/21 13:39 Pulse Ox 93 12/02/21 17:56 Physical Exam Narrative: Middle-age female Unkept appearance Disabled Morbidly obese Fluid overloaded Awake and alert Nonfocal neuro exam Asterixis negative Soft abdomen distended Bilateral breath sounds no rhonchi or crackles No active wheezing Currently on BiPAP FiO2 50% 31/05 Data : 12/02/21 13:05 12/02/21 13:05 Micro: Microbiology 12/02/21 15:40 Blood Culture - Preliminary Blood SPECIMEN COLLECTED 12/02/21 15:48 Blood Culture - Preliminary Blood SPECIMEN COLLECTED A&P Assessment and plan (1) Acute confusion: Status: Acute (2) Acute hypoxemic respiratory failure: Status: Acute (3) Pneumonia: Status: Acute (4) Fever: Status: Acute (5) CAD (coronary artery disease): Status: Acute Qualifiers: Coronary Disease-Associated Artery/Lesion type: [place] artery [place] vs. transplanted heart: [place] heart Associated angina: without angina Qualified Code(s): I25.10 - Atherosclerotic heart disease of [place] coronary artery without angina pectoris (6) (HFpEF) heart failure with preserved ejection fraction: Status: Acute (7) Stenosis of left internal carotid artery with cerebral infarction: Status: Acute (8) Sepsis: Status: Acute (9) Pneumonia: Status: Acute Plan Sepsis Recurrent pneumonia, previous episode in September 06 Criteria met with fever, tachypnea, tachycardia, high lactic acid Acute on chronic hypoxia related to pneumonia Covid PCR negative Previous Jose Miguel she was tested positive for MRSA PCR, will keep on vancomycin and cefepime She was diagnosed with hospital-acquired pneumonia in August last year She was treated with doxycycline and Levaquin for MRSA and E. coli coverage Endorsing productive cough thick yellow sputum Currently on BiPAP to decrease work of breathing Noncompliant with oxygen At home uses 2 to 3 L of oxygen at night CTA ruled out pulmonary embolism DuoNeb treatment Start methylprednisolone Patient is still smoking 3 to 4 cigarettes a day Hyperglycemia with poorly controlled type 2 diabetes. Hemoglobin A1c around 10, we will keep her on high-dose sliding scale, Lantus 15 units at night, check A1c level She only uses sliding scale at home as per the son Coronary disease status post HAILEE stent left circumflex 02/04 Continue dual antiplatelet therapy, need at least for 1 year Hold Imdur, continue Lipitor No active chest pain Dr. Olmos decreased the dose of Imdur to 60 mg and added metoprolol Patient does suffer from orthostatic hypotension for which sometimes she requires midodrine CVA with right arm weakness, she has 70% stenosis of left carotid, she was evaluated by Dr. Miller who recommended medical management and risk factor modification Kindly review his note for further detail Preserved ejection fraction heart failure currently seems volume overloaded however because of sepsis judicious use of fluids, she received 2 L of saline in the ER, I am not plan to start any fluids overnight Reevaluate in the morning to see if we can start low-dose Bumex Echo 56% Full code Consistent carb diet DVT prophylaxis: Moody Spoke with her son Attestations Medical Necessity Statement*: Anticipating more than 2 midnights Time Spent in Patient Care: 40mins Coding Level of Care Code Acute Radiologic Technician for Chg Fwd Diagnoses Acute confusion R41.0 Acute hypoxemic respiratory failure J96.01 Pneumonia J18.9 Fever R50.9 CAD (coronary artery disease) I25.10 Coronary Disease-Associated Artery/Lesion type: [place] artery [place] vs. transplanted heart: [place] heart Associated angina: without angina (HFpEF) heart failure with preserved ejection fraction I50.30 Stenosis of left internal carotid artery with cerebral infarction I63.232 Sepsis A41.9 Pneumonia J18.9
--- NOTE | 2021-12-02 18:32 | ECG_ITS ---
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 Measurements Intervals [place] Rate: 97 P: 254 KS: 156 QRS: 7 QRSD: 92 T: 36 QT: 361 QTc: 460 Interpretive Statements SINUS RHYTHM NONSPECIFIC ST & T-WAVE ABNORMALITY Compared to ECG 12/02/2021 14:07:32 T-wave abnormality now present Sinus tachycardia no longer present ST (T wave) deviation no longer present Electronically Signed On 12-02-2021 21:25:07 EMBEDDED FIRMWARE DEVELOPER by Marlee Olmos M.D. [email or web address]
[2021-12-02 19:10] LABS: Protein Urine Neg (Negative); Specific Gravity, Urine 1.025 (1.005-1.030); Urine Appearance Cloudy (CLEAR); Urine Color Dark Yellow (Yellow); pH Urine 5 (5-7)
[2021-12-02 19:12] LABS: Add Urine Microscopic? YES; Bilirubin Urine Neg (Negative); Blood Urine Neg (Negative); Glucose Urine UA 2+ (Normal); Ketones Urine Negative (Negative); Leukocyte Esterase Urine Negative (Negative); Nitrate Urine Negative (Negative); Urobilinogen Urine Norm (Negative)
[2021-12-02 19:13] LABS: Bacteria Urine 1+ /hpf; Hyaline Casts Urine 0-4 /lpf; RBC Urine 0-4 /hpf (0-2); Squamous Epithelial Cell Urine 0-4 /hpf (0-5)
[2021-12-02 19:29] LABS: Troponin 5 6HR 33.29 ng/L (0-10)
--- NOTE | 2021-12-02 19:29 | PC.NURSE ---
patient report received patient currently on BiPap, responds to verbal and tactile stimulation. tele in place. no complications with IV sites noted.
[2021-12-02 19:30] LABS: Troponin 5 6HR Delta -5.71 ng/L (0-12)
[2021-12-02 19:52] LABS: Procalcitonin 7.02 ng/mL (0-0.5)
[2021-12-02 21:14] LABS: Estmated Average Glucose 197; Hemoglobin A1C 8.5 % (4.0-6.0)
--- NOTE | 2021-12-02 22:46 | PC.PHAR ---
Vancomycin is dosed at 1250mg IVPB every 12 hours to produce a predicted trough level of 13.22 (population based pharmacokinetic analysis). A trough level has been ordered from the lab to be obtained before the fourth dose to confirm and adjust if needed.
[2021-12-02] MEDS: enoxaparin 40 mg/0.4 mL Syringe SUBCUT (23:35)
[2021-12-02] MEDS: insulin glargine 100 units/1 mL 15 UNIT SUBCUT (23:36)
[2021-12-02] MEDS: vancomycin 1,250 MG/250 ML PIGGYBACK 250 MG IV (23:39)
[2021-12-03] VITALS (12 sets, daily range): BP systolic 120–136; BP diastolic 58–82; PULSE 74–106; RESP 17–22; TEMP 36.4–36.9; O2SAT 94–99
[2021-12-03] MEDS: cefepime 1,000 MG in sodium chloride 0.9% (plus) 50 ML 100 MG IV ×2 (00:49→14:03)
[2021-12-03 03:43] LABS: ABG PH Result 7.39 (7.35-7.45); Arterial Blood Gas Hematocrit 30.6 % (37-47); Base Excess ABG -1.9 mmol/L (-2.0-2.0); Blood Gas Allen Test Pos; Blood Gas Sample Type Arterial; HCO3 ABG 22.8 mmol/L (22-26); PO2 ABG 82.7 mmHg (80.0-100.0)
[2021-12-03 03:44] LABS: Blood Gas Sample Site Radial, left; Oxygen Device BIPAP
[2021-12-03 06:16] LABS: Basophils # 0.1 10^3/uL (0.0-0.1); Basophils % 0.4 %; Hematocrit 34.1 % (37.0-47.0); Hemoglobin 9.9 g/dL (11.5-15.3); Lymphocytes # 2.2 10^3/uL (0.8-4.8); Lymphocytes % 7.2 %; Mean Corpuscular Hemoglobin 22.4 pg (28.0-34.0); Mean Corpuscular Volume 77.3 fl (81-99); Mean Platelet Volume 9.7 fL (7.4-10.4); Monocytes # 1.8 10^3/uL (0.2-0.9); Monocytes % 5.9 %; Neutrophils # 26.49 10^3/uL (1.8-7.7); Neutrophils % 84.9 %; Nucleated Red Blood Cells % 0 %; Platelet Count 605 10^3/cmm (130-400); Red Blood Count 4.41 10^6/uL (4.1-5.3); Red Cell Distribution Width 18.3 % (12.1-15.1)
[2021-12-03 06:35] LABS: Alanine Aminotransferase 7 U/L (0-33); Albumin Level 3.2 g/dL (3.5-5.2); Alkaline Phosphatase 103 IU/L (35-105); Anion Gap 14.3 (5-19); Aspartate Amino Transferase 10 U/L (0-32); Blood Urea Nitrogen 10 mg/dL (6-20); Calcium 9.5 mg/dL (8.5-10.5); Carbon Dioxide 22 mmol/L (22-29); Chloride 105 mmol/L (98-107); Globulin 3.6 g/dL (1.3-4.6); Glomerular Filtration Rate 104.2 mL/min (90-130); Glucose 279 mg/dL (65-115); Osmolality Calculated 293 mOsm/kg (285-295); Potassium 4.3 mmol/L (3.5-5.1); Sodium 137 mmol/L (136-145); Total Bilirubin 0.3 mg/dL (0.15-1.2); Total Protein 6.8 g/dL (6.6-8.7)
[2021-12-03 06:49] LABS: Glucose Point of Care 327 mg/dL (70-110)
[2021-12-03 06:49] LABS: Glucose Point of Care 296 mg/dL (70-110)
[2021-12-03 07:03] LABS: White Blood Count 31.2 10^3/uL (4.0-10.0)
[2021-12-03] MEDS: insulin lispro 100 unit/1 mL SUBCUT ×4 (08:34→12:33)
[2021-12-03] MEDS: vancomycin 1,250 MG/250 ML PIGGYBACK 250 MG IV ×2 (10:23→22:27)
[2021-12-03] MEDS: acetaminophen 500 mg Tablet PO (10:23)
--- NOTE | 2021-12-03 10:46 | PC.CHAP ---
Pastoral Care Encounter/Spiritual Assessment Type of Contact [] Declined insurance sales producer visit [] Patient/Family/Request visit [] Outpatient visit [] Follow-up visit [] Physician referral [] Code/Alert [x] Routine visit [] Staff referral [] Actively dying [] Patient sleeping [] Family support [] [] Out of room [] Palliative care [] [x] Receiving care in room [] Pre-surgical visit [] Trauma [] Long length of stay [] ICU visit [] Other: Relational/Emotional Strength [x] Patient feels connected with others/family/visitors/staff [] Distress [] Loneliness/isolation [] Abandonment Spirituality of Patient [x] Person of Mary [] Attends Anglican of their Mary [x] Believes in Prayer [] Reads Bible or Moravian materials [] There are Spiritual issues to be addressed Resistor Inspector Interventions [x] Prayer [x] Active listening [x] Non-anxious presence [x] Spiritual/emotional support [] Crisis/trauma care [x] Spiritual counseling [] Bereavement support [] Provided bereavement packet [] Provided Bible/devotional materials [] Provided toy/stuffed animal, coloring book to patient or family member [] Provided Communion [] Anointing/Curtiss [] Salvation [x] Completed spiritual assessment [] Other: Impact on Illness or Injury [] Angry [] Fearful [] Anxious [] Often cries [] Exhaustion [] Unable to work [] Unable to attend sabianist [] Unable to walk/stand [] Unable to read [] Unable to drive [] Unable to eat/drink [] Unable to sleep [] Unable to be with family [] Patient intubated [] Other: Summary feels good phunmona postive attitiude will be going home Time spent with patient 10 mins
[2021-12-03 11:45] LABS: Glucose Point of Care 151 mg/dL (70-110)
--- NOTE | 2021-12-03 13:52 | P.PN_ITS ---
Subjective Subjective: This morning patient was stating that her breathing has improved however she is in distress because of excessive productive cough Because of excessive coughing she sometimes gag and that is very uncomfortable Start her diet, this morning she was on 3 L nasal cannula Noticed severe leukocytosis, I will discontinue IV steroids, T-max 103 Vitals/I&O/Wt Last Vital Signs Temp 97.5 F L 12/03/21 12:00 Pulse 100 12/03/21 12:00 Resp 18 12/03/21 12:00 BP 132/81 12/03/21 12:00 Pulse Ox 97 12/03/21 12:00 12/02/21 12/03/21 12/03/21 22:59 06:59 14:59 Intake Total 2550 / 2550 300 / 2850 730 / 730 Output Total 1000 / 1000 Balance 2550 / 2550 300 / 2850 -270 / -270 Weight last 48 hrs Weight 100.329 kg Physical Exam Narrative: Patient was sitting on a bedside commode when entered the room She was saturating well on 3 L nasal cannula No active shortness of breath however her breathing rate was in 18-20 Nonfocal neuro exam Awake and alert Was endorsing feeling hungry and thirsty Right leg edema greater than as compared to left leg Soft abdomen No audible stridor or wheezing Data : 12/03/21 05:42 12/03/21 05:42 Micro: Microbiology 12/02/21 15:40 Blood Culture - Preliminary Blood SPECIMEN COLLECTED 12/02/21 15:48 Blood Culture - Preliminary Blood SPECIMEN COLLECTED A&P Assessment and plan (1) Pneumonia: Status: Acute (2) Sepsis: Status: Acute (3) Acute confusion: Status: Acute (4) Fever: Status: Acute (5) Acute and chronic respiratory failure with hypoxia: Status: Acute Plan 56 female who is an active smoker, lives with her son who is 30 years old, poorly controlled diabetes, presented to the hospital for confusion and hypoxic acute on chronic respiratory failure She required BiPAP at the time of admission Has been experiencing productive cough since 11/27, previous history of MRSA nare s PCR positive and hospital-acquired pneumonia 09/06 Sepsis related to pneumonia Continue previous history of positive MRSA PCR I will keep her on cefepime and vancomycin Did well on BiPAP 40% overnight BiPAP was used to decrease work of breathing with her hypoxia Active smoker No signs of PE Recurrent pneumonia, will need pulmonary follow-up Covid PCR negative Discontinued IV steroids, she is not wheezing No signs of PE History of coronary disease status post stent Patient to finish dual antiplatelet therapy in January to finish 12 months No active chest pain 70% stenosis of left carotid: Dr. Miller recommended risk factor modification and medical management Acute CHF exacerbation: Preserved action fraction: She received septic bolus in the ER, I would start her diuretics today Request Doppler of right leg which is more swollen as compared to left Echo showed EF 56% Poorly controlled type 2 diabetes I will add long-acting insulin, premeal scheduled insulin along sliding scale Full code Consistent carb diet Lovenox DVT prophylaxis She lives with her son with her son, Attestations Medical Necessity Statement*: Continue medical management Time Spent in Patient Care: 20min Coding Level of Care Code Acute Set Off Blocker for Subhashg Fwd Diagnoses Pneumonia J18.9 Sepsis A41.9 Acute confusion R41.0 Fever R50.9 Acute and chronic respiratory failure with hypoxia J96.21
--- NOTE | 2021-12-03 14:04 | USCV_ITS ---
Mayra Ascencio Age: 56 Gender: F : 1965 Exam Date: 12/03/2021 14:59 Ordering Phys: Darrell Cunha MD Technologist: ASHISH Exam Location: [facility] [place] Indication: rt lower leg swelling HISTORY: Lower extremity swelling. PROCEDURES: Venous duplex imaging was performed in only the right lower extremity. The following venous structures were evaluated: common femoral vein, profunda vein, proximal portion of the greater saphenous vein, superficial femoral vein, and the popliteal vein. In addition, the posterior tibial and peroneal trunk were evaluated. FINDINGS: Normal 2-D Doppler and augmentation and compressibility throughout the lower extremity venous structures. Additional imaging through the proximal calf veins also reveals no thrombus. Limited evaluation of the greater saphenous vein is patent with no thrombus.. CONCLUSIONS No evidence of right lower extremity DVT. Teto Stone MD (Electronically Signed) Final Date: 04 December 2021 12:22 Amended: 07 December 2021 14:30 C
[2021-12-03] MEDS: bumetanide 1 mg Tablet PO (14:49)
--- NOTE | 2021-12-03 20:23 | PC.NURSE ---
i reported high pulse 105 to nurse
[2021-12-03] MEDS: budesonide 0.5 mg/2 mL Neb INHALATION (20:34)
[2021-12-03] MEDS: ipratropium-albuterol 3 mL Neb INHALATION (20:34)
[2021-12-03 21:09] LABS: Glucose Point of Care 130 mg/dL (70-110)
[2021-12-03 21:21] LABS: Vancomycin Trough 14.1 ug/mL (10-15)
[2021-12-03] MEDS: enoxaparin 40 mg/0.4 mL Syringe SUBCUT (21:33)
[2021-12-03] MEDS: insulin glargine 100 units/1 mL 20 UNIT SUBCUT (21:34)
[2021-12-03] MEDS: quetiapine 100 mg Tablet PO (22:27)
[2021-12-04] VITALS (13 sets, daily range): BP systolic 126–160; BP diastolic 70–86; PULSE 60–107; RESP 16–21; TEMP 36.5–36.9; O2SAT 94–99
--- NOTE | 2021-12-04 00:37 | PC.NURSE ---
i reported high pulse 101 to nurse
[2021-12-04] MEDS: cefepime 1,000 MG in sodium chloride 0.9% (plus) 50 ML 100 MG IV ×3 (00:39→23:52)
[2021-12-04] MEDS: acetaminophen 500 mg Tablet PO (01:06)
[2021-12-04] MEDS: cyclobenzaprine 10 mg Tablet 5 MG PO (03:32)
--- NOTE | 2021-12-04 03:48 | PC.NURSE ---
@0310 patient awakened and demanding bipap to be removed, nurse complied and placed 02, patient exhibited anger about not getting her home meds. stated i will give that doctor a piece of my mind tomorrow but I need my meds or I will go home tomorrow and I don't care what that doctor says. c/o pain to bilat hands and feet, denied any meds that helps right hand pain, patient was given tylenol around 0100 abd had been asleep. patient requesting dilaudid and flexeril back. call placed to Dr. Sterling and made aware of patients request, flexeril 5 mg ordered but daulidid must be addressed by day shift hospitalist, this was explained to patient and patient verbalized understanding.
[2021-12-04 05:40] LABS: Basophils # 0.1 10^3/uL (0.0-0.1); Basophils % 0.4 %; Eosinophils # 0.1 10^3/uL (0.0-0.8); Eosinophils % 0.5 %; Hematocrit 30.2 % (37.0-47.0); Hemoglobin 9.2 g/dL (11.5-15.3); Lymphocytes % 14.6 %; Mean Corpuscular HGB Conc 30.5 g/dL (30.0-36.0); Mean Corpuscular Hemoglobin 22.3 pg (28.0-34.0); Mean Corpuscular Volume 73.1 fl (81-99); Mean Platelet Volume 9.3 fL (7.4-10.4); Monocytes # 1.6 10^3/uL (0.2-0.9); Monocytes % 5.9 %; Neutrophils # 21.26 10^3/uL (1.8-7.7); Nucleated Red Blood Cells % 0 %; Platelet Count 666 10^3/cmm (130-400); Red Blood Count 4.13 10^6/uL (4.1-5.3); Red Cell Distribution Width 18.1 % (12.1-15.1); White Blood Count 27.6 10^3/uL (4.0-10.0)
[2021-12-04 05:59] LABS: Anion Gap 15.4 (5-19); Blood Urea Nitrogen 14 mg/dL (6-20); Calcium 9.6 mg/dL (8.5-10.5); Carbon Dioxide 23 mmol/L (22-29); Chloride 108 mmol/L (98-107); Creatinine Clr Calc Pharmacy 150.9344; Glomerular Filtration Rate 128.6 mL/min (90-130); Glucose 113 mg/dL (65-115); Osmolality Calculated 297 mOsm/kg (285-295); Potassium 3.4 mmol/L (3.5-5.1); Sodium 143 mmol/L (136-145)
[2021-12-04 06:23] LABS: Glucose Point of Care 141 mg/dL (70-110)
[2021-12-04 06:46] LABS: Glucose Point of Care 113 mg/dL (70-110)
[2021-12-04] MEDS: ipratropium-albuterol 3 mL Neb INHALATION ×3 (07:47→21:32)
[2021-12-04] MEDS: budesonide 0.5 mg/2 mL Neb INHALATION ×2 (07:47→21:32)
[2021-12-04] MEDS: bumetanide 1 mg Tablet PO (07:51)
[2021-12-04] MEDS: vancomycin 1,250 MG/250 ML PIGGYBACK 250 MG IV ×2 (10:09→21:36)
[2021-12-04 11:21] LABS: Glucose Point of Care 188 mg/dL (70-110)
[2021-12-04] MEDS: insulin lispro 100 unit/1 mL SUBCUT ×4 (13:12→17:55)
[2021-12-04 13:40] LABS: Procalcitonin 5.59 ng/mL (0-0.5); Thyroid Stimulating Hormone 1.26 uIU/mL (0.27-4.20)
[2021-12-04 13:55] LABS: Iron 14 ug/dL (37-145); Percent Saturation 6.3 % (20-50); Total Iron Binding Capacity 221 mcg/dl; Unsaturated Iron Binding 207 ug/dL (112-347)
[2021-12-04] MEDS: metoprolol succinate ER (24 HR) 25 mg Tablet PO (14:06)
[2021-12-04] MEDS: isosorbide mononitrate ER 60 mg Tablet PO (14:06)
[2021-12-04] MEDS: aspirin 81 mg EC Tablet PO (14:07)
[2021-12-04] MEDS: sodium chloride 0.9% 1,000 ML 50 ML IV (14:07)
[2021-12-04 17:31] LABS: Glucose Point of Care 183 mg/dL (70-110)
[2021-12-04] MEDS: pregabalin 150 mg Capsule PO (17:55)
--- NOTE | 2021-12-04 18:05 | PM.PN ---
Subjective Subjective: This morning patient was stating that her breathing has improved however she is in distress because of excessive productive cough Because of excessive coughing she sometimes gag and that is very uncomfortable Start her diet, this morning she was on 3 L nasal cannula Noticed severe leukocytosis, I will discontinue IV steroids, T-max 103 Vitals/I&O/Wt Last Vital Signs Temp 98.5 F 12/04/21 15:39 Pulse 107 H 12/04/21 15:39 Resp 18 12/04/21 15:39 BP 160/74 12/04/21 15:39 Pulse Ox 94 12/04/21 15:39 12/04/21 12/04/21 12/04/21 06:59 14:59 22:59 Intake Total 300 / 1320 240 / 240 300 / 540 Output Total 640 / 1640 Balance -340 / -320 240 / 240 300 / 540 Weight last 48 hrs Weight 100.329 kg Data : 12/04/21 05:08 12/04/21 05:08 Micro: Microbiology 12/02/21 15:40 Blood Culture - Preliminary Blood NEGATIVE TO DATE 12/02/21 15:48 Blood Culture - Preliminary Blood NEGATIVE TO DATE 12/02/21 19:25 MRSA Culture - Final Nose A&P Assessment and plan (1) Acute and chronic respiratory failure with hypoxia: Status: Acute (2) Pneumonia: Status: Acute (3) Sepsis: Status: Acute (4) Acute confusion: Status: Acute (5) Fever: Status: Acute Plan Sepsis related to pneumonia: Oxygen supplementation keeping saturation over 88%. Baseline 2 L at home. Check sputum culture. History of MRSA positive in the past. For now continue vancomycin and cefepime. Active smoker. DuoNebs every 6 hour, budesonide twice daily. COVID-19 PCR negative. No concerns for COPD exacerbation. Discontinued IV steroids, she is not wheezing No signs of PE History of coronary disease status post stent Patient to finish dual antiplatelet therapy in January to finish 12 months No active chest pain 70% stenosis of left carotid: Dr. Miller recommended risk factor modification and medical management Acute CHF exacerbation: Preserved action fraction: Takes Bumex 1 mg daily at home. Patient slightly dehydrated currently. Normal saline at 50 cc/h for 1 bag. Hold off on Bumex for now. Poorly controlled type 2 diabetes I will add long-acting insulin, premeal scheduled insulin along sliding scale Restart other home chronic home medications. Full code Consistent carb diet Lovenox DVT prophylaxis She lives with her son with her son, Attestations Medical Necessity Statement*: Requires further hospitalization for management of acute on chronic hypoxia secondary to pneumonia Time Spent in Patient Care: Greater than 35 minutes Coding Level of Care Code Acute Supervisor Network Control Operators for Subhashg Fwd Diagnoses Pneumonia J18.9 Sepsis A41.9 Acute confusion R41.0 Fever R50.9 Acute and chronic respiratory failure with hypoxia J96.21
[2021-12-04] MEDS: quetiapine 100 mg Tablet PO (20:35)
[2021-12-04] MEDS: enoxaparin 40 mg/0.4 mL Syringe SUBCUT (20:36)
[2021-12-04] MEDS: ticagrelor 90 mg Tablet PO (20:36)
[2021-12-04 20:48] LABS: Glucose Point of Care 109 mg/dL (70-110)
[2021-12-05] VITALS (19 sets, daily range): BP systolic 105–155; BP diastolic 64–79; PULSE 84–106; RESP 15–22; TEMP 36.7–37.2; O2SAT 88–97
[2021-12-05] MEDS: ipratropium-albuterol 3 mL Neb INHALATION ×4 (03:52→21:20)
[2021-12-05 05:29] LABS: Basophils # 0.1 10^3/uL (0.0-0.1); Basophils % 0.5 %; Eosinophils # 0.3 10^3/uL (0.0-0.8); Eosinophils % 1.5 %; Hematocrit 30.7 % (37.0-47.0); Hemoglobin 9.3 g/dL (11.5-15.3); Lymphocytes # 3.1 10^3/uL (0.8-4.8); Lymphocytes % 16.3 %; Mean Corpuscular HGB Conc 30.3 g/dL (30.0-36.0); Mean Corpuscular Hemoglobin 22.1 pg (28.0-34.0); Mean Corpuscular Volume 73.1 fl (81-99); Mean Platelet Volume 9.3 fL (7.4-10.4); Monocytes # 1.4 10^3/uL (0.2-0.9); Monocytes % 7.3 %; Neutrophils # 13.85 10^3/uL (1.8-7.7); Neutrophils % 72.9 %; Nucleated Red Blood Cells % 0.1 %; Platelet Count 649 10^3/cmm (130-400); Red Cell Distribution Width 18.3 % (12.1-15.1)
[2021-12-05 06:02] LABS: Alanine Aminotransferase < 5 U/L (0-33); Alkaline Phosphatase 88 IU/L (35-105); Anion Gap 14.3 (5-19); Aspartate Amino Transferase 6 U/L (0-32); Blood Urea Nitrogen 14 mg/dL (6-20); Calcium 9.3 mg/dL (8.5-10.5); Carbon Dioxide 21 mmol/L (22-29); Chloride 105 mmol/L (98-107); Creatinine Clr Calc Pharmacy 150.9344; Globulin 3.7 g/dL (1.3-4.6); Glomerular Filtration Rate 128.6 mL/min (90-130); Glucose 141 mg/dL (65-115); Osmolality Calculated 287 mOsm/kg (285-295); Potassium 3.3 mmol/L (3.5-5.1); Sodium 137 mmol/L (136-145); Total Bilirubin 0.2 mg/dL (0.15-1.2); Total Protein 6.7 g/dL (6.6-8.7)
[2021-12-05 06:04] LABS: Estmated Average Glucose 194; Hemoglobin A1C 8.4 % (4.0-6.0)
[2021-12-05 06:22] LABS: Glucose Point of Care 183 mg/dL (70-110)
[2021-12-05] MEDS: metoprolol succinate ER (24 HR) 25 mg Tablet PO (08:09)
[2021-12-05] MEDS: pregabalin 150 mg Capsule PO ×2 (08:09→16:56)
[2021-12-05] MEDS: quetiapine 100 mg Tablet PO ×2 (08:09→21:32)
[2021-12-05] MEDS: oxybutynin chloride XL 5 MG TABLET PO (08:09)
[2021-12-05] MEDS: isosorbide mononitrate ER 60 mg Tablet PO (08:09)
[2021-12-05] MEDS: duloxetine 60 mg Capsule PO (08:10)
[2021-12-05] MEDS: losartan 50 mg Tablet PO (08:10)
[2021-12-05] MEDS: insulin lispro 100 unit/1 mL SUBCUT ×5 (08:10→17:30)
[2021-12-05] MEDS: atorvastatin 40 mg Tablet 80 MG PO (08:10)
[2021-12-05] MEDS: aspirin 81 mg EC Tablet PO (08:10)
[2021-12-05] MEDS: sennosides-docusate Tablet 1 TAB PO (08:10)
[2021-12-05] MEDS: ticagrelor 90 mg Tablet PO ×2 (08:10→21:32)
[2021-12-05] MEDS: pantoprazole DR 40 mg Tablet PO (08:10)
[2021-12-05] MEDS: vancomycin 1,250 MG/250 ML PIGGYBACK 250 MG IV ×2 (09:44→21:37)
[2021-12-05] MEDS: budesonide 0.5 mg/2 mL Neb INHALATION ×2 (10:47→19:42)
[2021-12-05] MEDS: potassium chloride ER 20 mEq Tablet 40 MEQ PO ×2 (11:36→13:44)
[2021-12-05 12:09] LABS: Glucose Point of Care 170 mg/dL (70-110)
--- NOTE | 2021-12-05 13:12 | PM.PN ---
Subjective Subjective: No acute events overnight. Patient has remained hemodynamically stable and afebrile. Denies any nausea, vomiting, headache. Continues to remain on 2 L to maintain saturation over 90%. States feeling better than before. Appetite appropriate. Sputum sample sent downloaded in the morning today. Vitals/I&O/Wt Last Vital Signs Temp 98.5 F 12/05/21 12:16 Pulse 101 H 12/05/21 12:16 Resp 15 12/05/21 12:16 BP 118/74 12/05/21 12:16 Pulse Ox 92 12/05/21 12:16 12/04/21 12/05/21 12/05/21 22:59 06:59 14:59 Intake Total 300 / 540 1220 / 1760 1250 / 1250 Output Total 300 / 300 Balance 300 / 540 920 / 1460 1250 / 1250 Physical Exam Narrative: No acute distress, AOx3 S1-S2 regular, no murmurs or gallops present. Bronchial breath sounds bilaterally with occasional rhonchi lower third lung field, coarse crackles present in right posterior lower zone Right leg edema greater than as compared to left leg Soft abdomen Data : 12/05/21 05:02 12/05/21 05:02 A&P Assessment and plan (1) Acute and chronic respiratory failure with hypoxia: Status: Acute (2) Pneumonia: Status: Acute (3) Sepsis: Status: Acute (4) Acute confusion: Status: Acute (5) Fever: Status: Acute Plan Sepsis related to pneumonia: Oxygen supplementation keeping saturation over 88%. Baseline 2 L at home. Sputum culture sent. Results pending. History of MRSA positive in the past. For now continue vancomycin and cefepime. Will change antibiotics as per sputum culture results. Patient persistently having leukocytosis which is trending down very slightly. Active smoker. DuoNebs every 6 hour, budesonide twice daily. COVID-19 PCR negative. No concerns for COPD exacerbation. Discontinued IV steroids, she is not wheezing No signs of PE History of coronary disease status post stent Patient to finish dual antiplatelet therapy in January to finish 12 months No active chest pain 70% stenosis of left carotid: Dr. Miller recommended risk factor modification and medical management Acute CHF exacerbation: Preserved action fraction: Takes Bumex 1 mg daily at home. Patient slightly dehydrated currently. Hold off on Bumex for now. Replace potassium Poorly controlled type 2 diabetes I will add long-acting insulin, premeal scheduled insulin along sliding scale Restart other home chronic home medications. Full code Consistent carb diet Lovenox DVT prophylaxis She lives with her son with her son, Plan for today: Continue with IV antibiotics with vancomycin and cefepime. Decrease home dose of Dilaudid to 2 mg daily every 6 hours as needed. Follow-up sputum culture results. Replete potassium 40 mEq every 1 hour 2 times. Continue to hold off on Bumex. If remains stable in next 24 hours we will plan to discharge home on oral antibiotics for next 7 days. Patient is patient already has oxygen at home. Attestations Medical Necessity Statement*: Requires further hospitalization for management of pneumonia in setting of chronic smoking and COPD as patient has persistent leukocytosis Time Spent in Patient Care: Greater than 35 minutes (>than 50% of time spent in counselling and/or direct pt care on unit). Coding Level of Care Code Acute Human Services Manager for Nahed Alcazar Diagnoses Acute and chronic respiratory failure with hypoxia J96.21 Pneumonia J18.9 Sepsis A41.9 Acute confusion R41.0 Fever R50.9
--- NOTE | 2021-12-05 13:35 | PC.SOCIAL ---
IMM UPDATED IMM dated and initialed and copy given to patient
[2021-12-05] MEDS: cefepime 1,000 MG in sodium chloride 0.9% (plus) 50 ML 100 MG IV (13:44)
[2021-12-05] MEDS: acetaminophen 500 mg Tablet PO (16:56)
[2021-12-05 17:11] LABS: Glucose Point of Care 150 mg/dL (70-110)
[2021-12-05 20:30] LABS: Glucose Point of Care 146 mg/dL (70-110)
[2021-12-05] MEDS: enoxaparin 40 mg/0.4 mL Syringe SUBCUT (21:32)
[2021-12-05] MEDS: insulin glargine 100 units/1 mL 20 UNIT SUBCUT (21:37)
[2021-12-06] VITALS (11 sets, daily range): BP systolic 100–143; BP diastolic 63–86; PULSE 96–113; RESP 18–22; TEMP 36.7–37.7; O2SAT 90–95
[2021-12-06] MEDS: cefepime 1,000 MG in sodium chloride 0.9% (plus) 50 ML 100 MG IV (01:41)
[2021-12-06 05:07] LABS: Basophils # 0.2 10^3/uL (0.0-0.1); Basophils % 0.7 %; Eosinophils # 0.8 10^3/uL (0.0-0.8); Eosinophils % 3.6 %; Hematocrit 32.3 % (37.0-47.0); Lymphocytes # 3.2 10^3/uL (0.8-4.8); Lymphocytes % 15.5 %; Mean Corpuscular Hemoglobin 22.7 pg (28.0-34.0); Mean Corpuscular Volume 73.2 fl (81-99); Mean Platelet Volume 9.1 fL (7.4-10.4); Monocytes # 1.7 10^3/uL (0.2-0.9); Monocytes % 8.1 %; Neutrophils # 14.37 10^3/uL (1.8-7.7); Neutrophils % 69.7 %; Nucleated Red Blood Cells % 0 %; Platelet Count 681 10^3/cmm (130-400); Red Blood Count 4.41 10^6/uL (4.1-5.3); Red Cell Distribution Width 18.1 % (12.1-15.1); White Blood Count 20.7 10^3/uL (4.0-10.0)
[2021-12-06 05:31] LABS: Alanine Aminotransferase < 5 U/L (0-33); Albumin Level 3.2 g/dL (3.5-5.2); Alkaline Phosphatase 87 IU/L (35-105); Anion Gap 15.4 (5-19); Aspartate Amino Transferase 8 U/L (0-32); Blood Urea Nitrogen 9 mg/dL (6-20); Calcium 9.3 mg/dL (8.5-10.5); Carbon Dioxide 21 mmol/L (22-29); Chloride 105 mmol/L (98-107); Globulin 3.2 g/dL (1.3-4.6); Glomerular Filtration Rate 104.2 mL/min (90-130); Glucose 142 mg/dL (65-115); Osmolality Calculated 285 mOsm/kg (285-295); Potassium 4.4 mmol/L (3.5-5.1); Sodium 137 mmol/L (136-145); Total Bilirubin 0.3 mg/dL (0.15-1.2); Total Protein 6.4 g/dL (6.6-8.7)
[2021-12-06 05:38] LABS: Procalcitonin 1.31 ng/mL (0-0.5)
[2021-12-06 06:49] LABS: Glucose Point of Care 173 mg/dL (70-110)
[2021-12-06] MEDS: insulin lispro 100 unit/1 mL SUBCUT ×6 (08:13→17:07)
[2021-12-06] MEDS: isosorbide mononitrate ER 60 mg Tablet PO (08:14)
[2021-12-06] MEDS: atorvastatin 40 mg Tablet 80 MG PO (08:14)
[2021-12-06] MEDS: pregabalin 150 mg Capsule PO ×2 (08:14→17:08)
[2021-12-06] MEDS: oxybutynin chloride XL 5 MG TABLET PO (08:14)
[2021-12-06] MEDS: losartan 50 mg Tablet PO (08:15)
[2021-12-06] MEDS: pantoprazole DR 40 mg Tablet PO (08:15)
[2021-12-06] MEDS: duloxetine 60 mg Capsule PO (08:15)
[2021-12-06] MEDS: sennosides-docusate Tablet 1 TAB PO (08:15)
[2021-12-06] MEDS: aspirin 81 mg EC Tablet PO (08:15)
[2021-12-06] MEDS: metoprolol succinate ER (24 HR) 25 mg Tablet PO (08:15)
[2021-12-06] MEDS: ticagrelor 90 mg Tablet PO ×2 (08:15→21:36)
[2021-12-06] MEDS: ipratropium-albuterol 3 mL Neb INHALATION (08:40)
[2021-12-06] MEDS: budesonide 0.5 mg/2 mL Neb INHALATION (08:42)
[2021-12-06] MEDS: vancomycin 1,250 MG/250 ML PIGGYBACK 250 MG IV ×2 (09:40→23:57)
[2021-12-06] MEDS: guaiFENesin-dextromethorphan UDC 10 mL PO (11:39)
[2021-12-06] MEDS: cyclobenzaprine 10 mg Tablet PO ×2 (11:40→17:08)
[2021-12-06 11:49] LABS: Glucose Point of Care 204 mg/dL (70-110)
--- NOTE | 2021-12-06 12:48 | P.PN_ITS ---
Subjective Subjective: No acute vents overnight. Denies any nausea vomiting, headache. Complaining of mild shortness of breath more than usual. Found to be mild tachycardic today. Denies any other complaints. Complaining of back pain. States back pain is chronic. Vitals/I&O/Wt Last Vital Signs Temp 98.2 F 12/06/21 11:20 Pulse 113 H 12/06/21 11:20 Resp 21 H 12/06/21 11:20 BP 100/63 12/06/21 11:20 Pulse Ox 90 12/06/21 11:20 12/05/21 12/06/21 12/06/21 22:59 06:59 14:59 Intake Total 120 / 1660 700 / 2360 590 / 590 Output Total 2250 / 2250 600 / 600 Balance 120 / 1660 -1550 / 110 -10 / -10 Physical Exam Narrative: No acute distress, AOx3 S1-S2 regular, no murmurs or gallops present, tachycardic heart rate up to 113 Bronchial breath sounds bilaterally with occasional rhonchi lower third lung field, coarse crackles present in right posterior lower zone Right leg edema greater than as compared to left leg Soft abdomen Data : 12/06/21 04:40 12/06/21 04:40 Micro: Microbiology 12/05/21 10:40 Gram Stain - Final Sputum - Expectorated Sputum Sputum Culture - Preliminary A&P Assessment and plan (1) Acute and chronic respiratory failure with hypoxia: Status: Acute (2) Pneumonia: Status: Acute (3) Sepsis: Status: Acute (4) Acute confusion: Status: Acute (5) Fever: Status: Acute Plan Sepsis related to pneumonia: Persistent leukocytosis. Oxygen supplementation keeping saturation over 88%. Baseline 2 L at home. Sputum culture sent. Results pending. History of MRSA positive in the past. Continue with vancomycin. Switch from cefepime to imipenem for a possibility of resistant Pseudomonas. Repeat chest x-ray. Active smoker. Switch to Advair, Spiriva. COVID-19 PCR negative. No concerns for COPD exacerbation. No signs of PE History of coronary disease status post stent Patient to finish dual antiplatelet therapy in January to finish 12 months No active chest pain 70% stenosis of left carotid: Dr. Miller recommended risk factor modification and medical management Acute CHF exacerbation: Preserved ejection fraction: Takes Bumex 1 mg daily at home. Last echocardiogram from August 2021 shows an EF 56% normal diastolic function, moderate aortic valve calcification, trace TR. No concern for pulmonary hypertension. RA pressure was found to be 5. Patient euvolemic. Hold off on Bumex for now. Most likely patient does not need diuretics as an outpatient. Poorly controlled type 2 diabetes: A1c 8.4. Insulin sliding scale. Continue with Lantus. Continue other chronic home medications including pain medications. Chronic smoker: Counseled in detail regarding cessation of smoking going forward to prevent recurrent pneumonias, worsening COPD or even lung cancer. Patient relates understanding. Denies any need for help. Nicotine patch offered. Full code Consistent carb diet Lovenox DVT prophylaxis She lives with her son with her son, Plan for today: Continue vancomycin. Cefepime changed to imipenem. Follow-up sputum culture. Restart home dose of oral Dilaudid. Hold off on any further fluids or diuresis. Repeat chest x-ray If remains stable in next 24 hours we will plan to discharge home on oral antibiotics for next 7 days. Patient is patient already has oxygen at home. Attestations Medical Necessity Statement*: Requires further hospitalization for management of sepsis secondary to pneumonia, persistent leukocytosis Time Spent in Patient Care: Greater than 35 minutes Coding Level of Care Code Acute Electrical Engineering Professor for Nahed Alcazar Diagnoses Acute and chronic respiratory failure with hypoxia J96.21 Pneumonia J18.9 Sepsis A41.9 Acute confusion R41.0 Fever R50.9
--- NOTE | 2021-12-06 12:50 | XRR_ITS ---
PROCEDURE INFORMATION: Exam: XR Chest Exam date and time: 12/06/2021 12:50 PM Age: 56 years old Clinical indication: Shortness of breath; Prior surgery; Surgery date: 6+ months; Surgery type: 7 stents total; Patient HX: Current smoker, no HX of CA, PT states HX of copd; Additional info: Copd/pneumonia TECHNIQUE: Imaging protocol: XR of the chest. Views: 1 view. COMPARISON: 1. CR XR chest 1V portable [id number] 12/02/2021 12:[address] angio chest PE protcl [id number] 12/02/2021 4:23 PM FINDINGS: Lungs: Low lung volumes. Diffuse increased interstitial markings with left basilar ground-glass opacities, similar to prior. No dense lobar consolidation. Pleural spaces: Unremarkable. No pleural effusion. No pneumothorax. Heart/Mediastinum: Unremarkable. No cardiomegaly. Bones/joints: Unremarkable. XR/XR chest 1V portable [id number] IMPRESSION: No significant overall change. Diffusely increased interstitial markings with left basilar ground-glass opacities most consistent with atypical pneumonia.
[2021-12-06] MEDS: levoFLOXacin 500 mg Tablet PO (15:48)
[2021-12-06 16:27] LABS: Glucose Point of Care 186 mg/dL (70-110)
[2021-12-06 20:42] LABS: Glucose Point of Care 179 mg/dL (70-110)
[2021-12-06] MEDS: quetiapine 100 mg Tablet PO (21:36)
[2021-12-06] MEDS: enoxaparin 40 mg/0.4 mL Syringe SUBCUT (21:37)
[2021-12-06] MEDS: insulin glargine 100 units/1 mL 20 UNIT SUBCUT (21:37)
[2021-12-06 23:48] LABS: Vancomycin Trough 12.4 ug/mL (10-15)
[2021-12-07] VITALS (8 sets, daily range): BP systolic 104–124; BP diastolic 55–77; PULSE 69–112; RESP 15–24; TEMP 36.4–37.4; O2SAT 90–96
[2021-12-07] MEDS: cyclobenzaprine 10 mg Tablet PO (04:22)
[2021-12-07 05:05] LABS: Basophils # 0.2 10^3/uL (0.0-0.1); Basophils % 0.9 %; Eosinophils % 4.1 %; Hematocrit 32.6 % (37.0-47.0); Hemoglobin 10.1 g/dL (11.5-15.3); Lymphocytes # 3.6 10^3/uL (0.8-4.8); Lymphocytes % 14.9 %; Mean Corpuscular Hemoglobin 22.5 pg (28.0-34.0); Mean Corpuscular Volume 72.6 fl (81-99); Mean Platelet Volume 9.3 fL (7.4-10.4); Monocytes # 2.3 10^3/uL (0.2-0.9); Monocytes % 9.6 %; Neutrophils # 15.61 10^3/uL (1.8-7.7); Neutrophils % 65.1 %; Nucleated Red Blood Cells % 0 %; Platelet Count 732 10^3/cmm (130-400); Red Blood Count 4.49 10^6/uL (4.1-5.3); Red Cell Distribution Width 17.7 % (12.1-15.1)
[2021-12-07 05:06] LABS: Slide Review Slide Review Perform
[2021-12-07] MEDS: levoFLOXacin 500 mg Tablet PO (05:21)
[2021-12-07 05:23] LABS: Alanine Aminotransferase < 5 U/L (0-33); Albumin Level 3.1 g/dL (3.5-5.2); Alkaline Phosphatase 82 IU/L (35-105); Aspartate Amino Transferase 6 U/L (0-32); Blood Urea Nitrogen 9 mg/dL (6-20); Calcium 9.5 mg/dL (8.5-10.5); Carbon Dioxide 19 mmol/L (22-29); Chloride 102 mmol/L (98-107); Creatinine Clr Calc Pharmacy 150.9344; Globulin 3.4 g/dL (1.3-4.6); Glomerular Filtration Rate 128.6 mL/min (90-130); Glucose 152 mg/dL (65-115); Osmolality Calculated 282 mOsm/kg (285-295); Sodium 135 mmol/L (136-145); Total Bilirubin 0.3 mg/dL (0.15-1.2); Total Protein 6.5 g/dL (6.6-8.7)
[2021-12-07 06:44] LABS: Glucose Point of Care 200 mg/dL (70-110)
[2021-12-07] MEDS: atorvastatin 40 mg Tablet 80 MG PO (07:47)
[2021-12-07] MEDS: insulin lispro 100 unit/1 mL SUBCUT ×4 (07:47→11:42)
[2021-12-07] MEDS: nicotine 21 mg Patch 1 PATCH TRANSDERMA (07:48)
[2021-12-07] MEDS: metoprolol succinate ER (24 HR) 50 mg Tablet PO (07:48)
[2021-12-07] MEDS: sennosides-docusate Tablet 1 TAB PO (07:48)
[2021-12-07] MEDS: losartan 50 mg Tablet PO (07:48)
[2021-12-07] MEDS: pregabalin 150 mg Capsule PO (07:48)
[2021-12-07] MEDS: oxybutynin chloride XL 5 MG TABLET PO (07:48)
[2021-12-07] MEDS: pantoprazole DR 40 mg Tablet PO (07:48)
[2021-12-07] MEDS: ticagrelor 90 mg Tablet PO (07:48)
[2021-12-07] MEDS: isosorbide mononitrate ER 60 mg Tablet PO (07:49)
[2021-12-07] MEDS: aspirin 81 mg EC Tablet PO (07:49)
[2021-12-07] MEDS: duloxetine 60 mg Capsule PO (07:49)
[2021-12-07] MEDS: vancomycin 1,250 MG/250 ML PIGGYBACK 250 MG IV (09:58)
--- NOTE | 2021-12-07 10:13 | PC.SOCIAL ---
IMM Update pg 2 of IMM updated and reviewed w/ patient. Copy provided and copy in chart updated.
[2021-12-07 11:11] LABS: Glucose Point of Care 203 mg/dL (70-110)
--- NOTE | 2021-12-07 11:53 | P.DS_ITS ---
Discharge Providers Date of Admission: 12/02/21 17:02 Date of Discharge: December 07, 2021 Attending Provider at Admission: Darrell Cunha MD Attending Provider at Discharge: Cornelius Joyce MD Primary Care Provider: KATHY Stewart Diagnoses at Discharge Discharge Diagnosis (1) Acute and chronic respiratory failure with hypoxia: Status: Acute (2) Pneumonia: Status: Acute (3) Sepsis: Status: Acute (4) Acute confusion: Status: Acute (5) Fever: Status: Acute Reason for Visit Reason for Visit: AMS/ TACHYCARDIA Brief History: History as per HPI: Mayra Ascencio is a 56 year old female who present to the hospital for worsening shortness of breath and confusion.? Patient was not sure why she was sent.? I called her son.? Son is 30 years old who takes care of her.? He is stating that her symptoms started on 11/27 with pain behind her eyes, runny nose thick yellow sputum however no fever was noticed.? She was coughing pretty strongly in last few days, son tried to call the PCP who gave them appointment after 2 to 3 weeks.? Because of worsening of her symptoms son wanted to call ambulance however she was reluctant to come to the hospital for evaluation.? Son called her sister today.? When sister arrived she became very confused and was not really responding to their verbal commands.? Ambulance was called at that time. In the ER she was diagnosed with community-acquired pneumonia she was given IV steroids, she is septic so she was given 2 L of normal saline, IV steroids 125 mg along vancomycin cefepime and azithromycin Covid PCR negative At the time interaction with admitting physician patient is awake and alert, she is stating that she is vaccinated for COVID-19, she lives with her son and smok es 2 to 3 cigarettes a day.? Son gives her sliding scale insulin and states her sugar mostly runs above 200, recently her carotid surgery was delayed because of coronary disease and indication of dual antiplatelet therapy At home she is supposed to use 3 L of oxygen at night however she has been noncompliant with it.? Her Lasix dose recently has been cut down to 20 mg from 40 mg. Patient was hypoxic, tachycardic, febrile, she was 85% on room air, she was put on BiPAP to decrease work of breathing settings 15/85% Hospital Course Hospital Course Patient was admitted to the hospital further evaluation and management of sepsis secondary to community-acquired pneumonia. On admission patient had metabolic encephalopathy. Patient had history of MRSA pneumonia. She was started on broad-spectrum antibiotics. During hospitalization her blood culture remain negative, sputum culture came back positive for MRSA. She had slow gradual recovery during hospitalization otherwise her hospitalization was unremarkable. She had persistent leukocytosis. Last high-grade spike of fever was on 12/03. Patient remained on home oxygen requirement for last 3 days and has been feeling subjectively better for last 48 hours. Patient has already finished 6 days course of treatment with IV vancomycin. She has been discharged in imminently stable condition on oral linezolid for next 2 days and Levaquin for next 7 days. Patient is counseled and advised in detail regarding smoking cessation. She verbalized understanding. Physical Exam Narrative: No acute distress, AOx3 S1-S2 regular, no murmurs or gallops present, Bronchial breath sounds bilaterally with occasional rhonchi lower third lung field, coarse crackles present in right posterior lower zone Right leg edema greater than as compared to left leg Soft abdomen Discharge Data Studies Completed and Pending Completed Studies During Hospitalization Category Date Time Status CTA chest [CT angio chest PE protcl [id number]] Urgent Cat Scan 12/02/21 13:44 Completed XR chest 1V portable [id number] Routine Exams 12/06/21 12:50 Completed XR chest 1V portable [id number] Urgent Exams 12/02/21 12:32 [place] [id number] Routine Ultrasound 12/03/21 14:04 Completed Pending at discharge Category Date Time Status Blood Culture Stat Lab 12/02/21 15:40 Results Sputum Culture and Gram Stain Stat Lab 12/05/21 10:40 Results Radiology Impressions Chest CTA 12/02/21 13:44 IMPRESSION: 1. No evidence of pulmonary embolism. 2. Patulous consolidations within both lungs, predominantly centered within the lung bases, consistent with multifocal pneumonia. Chest X-Ray 12/06/21 12:50 IMPRESSION: No significant overall change. Diffusely increased interstitial markings with left basilar ground-glass opacities most consistent with atypical pneumonia. Microbiology 12/05/21 10:40 Sputum - Expectorated Sputum Gram Stain - Final 12/05/21 10:40 Sputum - Expectorated Sputum Sputum Culture - Preliminary Staphylococcus aureus 12/02/21 15:40 Blood Blood Culture - Preliminary NEGATIVE TO DATE 12/02/21 15:48 Blood Blood Culture - Preliminary NEGATIVE TO DATE 12/02/21 19:25 Nose MRSA Culture - Final?Positive Laboratory Results WBC Cancelled 12/07/21 04:20 Corrected WBC Cancelled 12/07/21 04:20 RBC Cancelled 12/07/21 04:20 Hgb Cancelled 12/07/21 04:20 Hct Cancelled 12/07/21 04:20 MCV Cancelled 12/07/21 04:20 MCH Cancelled 12/07/21 04:20 MCHC Cancelled 12/07/21 04:20 RDW Cancelled 12/07/21 04:20 Plt Count Cancelled 12/07/21 04:20 MPV Cancelled 12/07/21 04:20 Gran % Cancelled 12/07/21 04:20 Neut % (Auto) Cancelled 12/07/21 04:20 Lymph % (Auto) Cancelled 12/07/21 04:20 [place] % (Auto) Cancelled 12/07/21 04:20 Eos % (Auto) Cancelled 12/07/21 04:20 Baso % (Auto) Cancelled 12/07/21 04:20 Neut # (Auto) Cancelled 12/07/21 04:20 Lymph # (Auto) Cancelled 12/07/21 04:20 [place] # (Auto) Cancelled 12/07/21 04:20 Eos # (Auto) Cancelled 12/07/21 04:20 Baso # (Auto) Cancelled 12/07/21 04:20 Absolute Gran (auto) Cancelled 12/07/21 04:20 Nucleated RBC % (auto) Cancelled 12/07/21 04:20 Nucleated RBCs # Cancelled 12/07/21 04:20 Specimen Type Arterial 12/03/21 03:31 Sample Site Radial, left 12/03/21 03:31 ABG pH 7.39 (7.35-7.45) 12/03/21 03:31 ABG pCO2 38.0 mmHg (35-45) 12/03/21 03:31 ABG pO2 82.7 mmHg (80.0-100.0) 12/03/21 03:31 ABG HCO3 22.8 mmol/L (22-26) 12/03/21 03:31 ABG Base Excess -1.9 mmol/L (-2.0-2.0) 12/03/21 03:31 Freddy Test Pos 12/03/21 03:31 Hematocrit 30.6 % (37-47) L 12/03/21 03:31 O2 Delivery Device Bipap 12/03/21 03:31 FiO2 40.0 % 12/03/21 03:31 PEEP 8.0 cmH20 12/03/21 03:31 Rolled Materials Worker ID Viky 12/03/21 03:31 Sodium Cancelled 12/07/21 04:20 Potassium Cancelled 12/07/21 04:20 Chloride Cancelled 12/07/21 04:20 Carbon Dioxide Cancelled 12/07/21 04:20 Anion Gap Cancelled 12/07/21 04:20 BUN Cancelled 12/07/21 04:20 Creatinine Cancelled 12/07/21 04:20 GFR Calculation Cancelled 12/07/21 04:20 Glucose Cancelled 12/07/21 04:20 POC Glucose 203 mg/dL (70-110) H 12/07/21 11:06 Estimat Average Glucose 194 12/05/21 05:02 Hemoglobin A1c 8.4 % (4.0-6.0) H 12/05/21 05:02 Calculated Osmolality Cancelled 12/07/21 04:20 Lactate 2.6 mmol/L (0.5-2.2) H 12/02/21 13:05 Calcium Cancelled 12/07/21 04:20 Iron 14 ug/dL (37-145) L 12/04/21 05:08 TIBC 221 mcg/dl 12/04/21 05:08 % Saturation 6.3 % (20-50) L 12/04/21 05:08 Unsat Iron Binding 207 ug/dL (112-347) 12/04/21 05:08 Total Bilirubin Cancelled 12/07/21 04:20 AST Cancelled 12/07/21 04:20 ALT Cancelled 12/07/21 04:20 Alkaline Phosphatase Cancelled 12/07/21 04:20 Troponin T Baseline 39 ng/L (0-10) H 12/02/21 13:05 Troponin T 120 Minute 35.41 ng/L (0-10) H 12/02/21 15:48 Delta Troponin T -3.59 ABS# (0-10) L 12/02/21 15:48 Troponin T Hi Sens 6Hr 33.29 ng/L (0-10) H 12/02/21 18:54 Troponin T Hi Sens 6Hr Delta -5.71 ng/L (0-12) L 12/02/21 18:54 NT-Pro-B Natriuret Pep 212 pg/mL (0-125) H 12/02/21 13:05 Total Protein Cancelled 12/07/21 04:20 Albumin Cancelled 12/07/21 04:20 Globulin Cancelled 12/07/21 04:20 Procalcitonin 1.31 ng/mL (0-0.5) H 12/06/21 04:40 Procalcitonin Cancelled 12/06/21 04:40 TSH 1.26 uIU/mL (0.27-4.20) 12/04/21 05:08 Urine Color Dark yellow (Yellow) 12/02/21 18:34 Urine Appearance Cloudy (CLEAR) 12/02/21 18:34 Urine pH 5 (5-7) 12/02/21 18:34 Ur Specific [place] 1.025 (1.005-1.030) 12/02/21 18:34 Urine Protein Neg (Negative) 12/02/21 18:34 Urine Glucose (UA) 2+ (Normal) H 12/02/21 18:34 Urine Ketones Negative (Negative) 12/02/21 18:34 Urine Blood Neg (Negative) 12/02/21 18:34 Urine Nitrate Negative (Negative) 12/02/21 18:34 Urine Bilirubin Neg (Negative) 12/02/21 18:34 Urine Urobilinogen Norm mg/dL (Negative) 12/02/21 18:34 Ur Leukocyte Esterase Negative (Negative) 12/02/21 18:34 Urine RBC 0-4 /hpf (0-2) H 12/02/21 18:34 Urine WBC 5-10 /hpf (0-5) H 12/02/21 18:34 Ur Squamous Epith Cells 0-4 /hpf (0-5) H 12/02/21 18:34 Amorphous Sediment Not Reportable 12/02/21 18:34 Urine Bacteria 1+ /hpf (NONE) H 12/02/21 18:34 Hyaline Casts 0-4 /lpf H 12/02/21 18:34 Vancomycin Trough 12.4 ug/mL (10-15) 12/06/21 21:12 Coronavirus 229E (PCR) Not detected (NOT DETECT) 12/02/21 14:00 SARS-CoV-2 (PCR) Not detected (NOT DETECT) 12/02/21 14:00 Vitals Last Vital Signs Temp 97.9 F 12/07/21 11:17 Pulse 104 H 12/07/21 11:17 Resp 15 12/07/21 11:17 BP 105/73 12/07/21 11:17 Pulse Ox 91 12/07/21 11:17 Discharge Plan Discharge Patient Disposition: Home Condition: Stable Prescriptions: New fluticasone propion-salmeterol [Advair Diskus] 250-50 mcg/dose Blister With Device 1 puff inhalation BID.RESPIRATORY 30 Days Qty: 60 0RF levofloxacin 500 mg Tablet 500 mg PO DAILY@0600 Qty: 6 0RF linezolid 600 mg tablet 600 mg PO BID 5 Days Qty: 10 0RF Spiriva with HandiHaler 18 mcg capsule, w/inhalation device 1 cap inhalation DAILY Qty: 30 0RF Rx Instructions: puncture 1 cap using device; one dose = 2 inhalations Continued ergocalciferol (vitamin D2) 1,250 mcg (50,000 unit) capsule 1,250 mcg PO Q7D Qty: 4 2RF (DME) pen needle, diabetic [Comfort EZ Pen Buda] 31 gauge x 5/16 needle See Rx Instructions .Route Qty: 100 6RF Rx Instructions: use daily with levemir Repatha SureClick 140 mg/mL pen injector 140 mg SUBCUT .[id number] Qty: 2 5RF (DME) COCK UP SPLINT See Rx Instructions .Route .MEDSUPPLY Qty: 2 0RF Rx Instructions: As directed quetiapine 200 mg tablet 200 mg PO DAILY Qty: 30 1RF hydromorphone 4 mg tablet 4 mg PO Q6H PRN (Reason: pain) 30 Days Qty: 120 0RF Rx Instructions: fill on or after 12/11/21 duloxetine 60 mg capsule, delayed rel sprinkle 60 mg PO DAILY@08 30 Days Qty: 30 0RF cyclobenzaprine 10 mg tablet 10 mg PO TID PRN (Reason: muscle spasm) 30 Days Qty: 90 1RF pregabalin [Lyrica] 150 mg capsule 150 mg PO BID@0800,1800 30 Days Qty: 60 1RF nitroglycerin 0.4 mg tablet, sublingual See Rx Instructions .ROUTE .COMPLEX Qty: 25 3RF Dose Instruction: PLACE ONE TABLET UNDER TONGUE EVERY 5 MINUTES NEEDED FOR CHEST PAIN, MAX. 3 TABLETS IN 15 MIN, THEN SEEK MEDICAL ATTENTION Rx Instructions: PLACE ONE TABLET UNDER TONGUE EVERY 5 MINUTES NEEDED FOR CHEST PAIN, MAX. 3 TABLETS IN 15 MIN, THEN SEEK MEDICAL ATTENTION isosorbide mononitrate 60 mg tablet extended release 24 hr 60 mg PO DAILY Qty: 90 2RF losartan 50 mg tablet 50 mg PO DAILY@0800 Qty: 30 6RF (DME) pen needle, diabetic [Comfort EZ Pen Buda] 32 gauge x 5/32 needle See Rx Instructions .Route Qty: 100 2RF Rx Instructions: use 3times a day to inject insulin. atorvastatin 80 mg tablet 80 mg PO DAILY Qty: 30 3RF aspirin [Adult Aspirin Regimen] 81 mg tablet,delayed release (DR/EC) 81 mg PO DAILY Qty: 30 5RF Brilinta 90 mg tablet 90 mg PO BID@08,21 Qty: 180 4RF acetaminophen 325 mg Tablet 650 mg PO Q6H PRN (Reason: Mild/Mod Pain Or Temp >/= 101) Qty: 30 0RF oxybutynin chloride 5 mg tablet extended release 24hr 5 mg PO DAILY 0RF Lasix 20 mg tablet 10 mg PO EVERY OTHER DAY 0RF albuterol sulfate 90 mcg/actuation HFA aerosol inhaler 1 inh inhalation Q6H PRN (Reason: Shortness Of Breath) 0RF pantoprazole 40 mg tablet,delayed release (DR/EC) 40 mg PO DAILY 0RF Changed metoprolol succinate 25 mg tablet extended release 24 hr 50 mg PO DAILY Qty: 30 4RF Discharge Orders: Discharge Order (Routine); Ordered 12/07/21 Ordered By: Cornelius Joyce Referrals: Naomy Goodwin FNP [Primary Care Provider] - 12/14/21 10:00 am Discharge Diet: Cardiac Discharge Activity: Resume usual activity and Increase activity as tolerated Patient Instructions: How to Stop Smoking (DC), Chronic Respiratory Failure (DC), Opioid Safety, Quitting Smoking Activity Restrictions/Additional Instructions: You will be on different antibiotics for next 1 week. Antibiotics as followed. Linezolid for next 5 days. Take it twice daily. Levaquin once daily for next 6 days. Take inhalation treatment with Advair and Spiriva. Please try to stop smoking as soon as possible to prevent lung cancer, CAD, recurrent pneumonias, worsening COPD. Discharge Attestations Time Spent in Discharge Care*: greater than 30 min Specific Discharge Activities: educating patient, educating and/or supporting family/caregiver, discussing with piano case and bench assembler/social workers/dc planners, documenting/other paperwork and evaluating patient/reviewing data Status at Discharge: Cognitive status at discharge: mildly impaired cognition , Behavioral status at discharge: cooperative , Functional status at discharge: independent ambulation , Overall status at discharge: patient is back to baseline Quality Metrics Clinical Quality Measures [ No reported AMI, CVA or VTE this stay] Coding Level of Care Code Acute Chg FW DC note History Comprehensive Exam Comprehensive Medical Decision Making High Complexity Diagnoses Acute and chronic respiratory failure with hypoxia J96.21 Pneumonia J18.9 Sepsis A41.9 Acute confusion R41.0 Fever R50.9
--- NOTE | 2021-12-07 13:35 | PC.NURSE ---
patient and father verbalized understanding of discharge instructions, home medications, and follow up appointments.
--- NOTE | 2021-12-10 09:44 | PC.SOCIAL ---
Called from [facility] this week with sputum result positive for MRSA. This was documented in Dr Joyce dc note and Linezolid prescribed. Discussed with provider Dr Joyce and no further orders needed. Tried to reach patient to ensure she completes the abx prescribed but was unable to reach. Left message requesting a return call. Did send PCP email to notify her as well Naomy CHAVEZ. Patient was readmitted on 12/08 and dc'd on 12/09 with orders to continue the Linezolid upon this dc.
== END 2021-12-07 13:38 | disposition home or self-care (01) | DRG 871 ==
LOC: ER 14:12 → MEDSURG 20:41
PROVIDERS: Admitting Provider Internal Medicine; Emergency Provider Emergency Medicine; PCP Nurse Practitioner Family; Visit Provider Student in an Organized Health Care Education/Training Program
DX: A41.9 Sepsis, unspecified organism (principal); J18.9 Pneumonia, unspecified organism; I50.33 Acute on chronic diastolic (congestive) heart failure; J96.21 Acute and chronic respiratory failure with hypoxia; G93.41 Metabolic encephalopathy; J44.0 Chronic obstructive pulmonary disease with (acute) lower respiratory infection; I25.10 Atherosclerotic heart disease of native coronary artery without angina pectoris; I11.0 Hypertensive heart disease with heart failure; E11.65 Type 2 diabetes mellitus with hyperglycemia; E11.42 Type 2 diabetes mellitus with diabetic polyneuropathy; G89.29 Other chronic pain; F17.210 Nicotine dependence, cigarettes, uncomplicated; Z86.73 Personal history of transient ischemic attack (TIA), and cerebral infarction without residual deficits; E78.2 Mixed hyperlipidemia; M79.7 Fibromyalgia; I25.2 Old myocardial infarction; E66.9 Obesity, unspecified; Z68.36 Body mass index [BMI] 36.0-36.9, adult; Z87.01 Personal history of pneumonia (recurrent); Z87.440 Personal history of urinary (tract) infections; Z79.51 Long term (current) use of inhaled steroids; Z79.02 Long term (current) use of antithrombotics/antiplatelets; Z79.82 Long term (current) use of aspirin; Z79.891 Long term (current) use of opiate analgesic; Z86.14 Personal history of Methicillin resistant Staphylococcus aureus infection; I95.1 Orthostatic hypotension; Z91.14 Patient's other noncompliance with medication regimen; Z96.652 Presence of left artificial knee joint; Z98.1 Arthrodesis status; B95.62 Methicillin resistant Staphylococcus aureus infection as the cause of diseases classified elsewhere
CPT/HCPCS: 36415; 36416; 36600; 71045; 71275; 80048; 80053; 80202; 81001; 82803; 82962; 83036; 83540; 83550; 83605; 83880; 84145; 84443; 84484; 85025; 87040; 87070; 87077; 87186; 87205; 87635; 87641; 93005; 93971; 94640; 94660; 96365; 96367; 96372; 96375; 97110; 97116; 97161; 97530; 99285; J0456; J0692; J0743; J1650; J1815 ×2; J2930; J3370; J3490; J7030; J7050; J7626; Q9967

== ENCOUNTER 2021-12-08 18:21 | Observation (INO) | payer MEDICARE, MEDICAID, SELFPAY ==
[2021-12-08 18:28] VITALS: BP 102/61; PULSE 111; RESP 20; TEMP 36.8; O2SAT 94; BMI 33.0
--- NOTE | 2021-12-08 18:57 | XRR_ITS ---
PROCEDURE INFORMATION: Exam: XR Chest Exam date and time: 12/08/2021 6:57 PM Age: 56 years old Clinical indication: Shortness of breath; Additional info: SOB TECHNIQUE: Imaging protocol: XR of the chest. Views: 1 view. COMPARISON: CR XR chest 1V portable [id number] 12/06/2021 1:06 PM FINDINGS: Lungs: Ground-glass pulmonary opacities not significantly changed from 12/06/2021. No new infiltrate is identified. Pleural spaces: Unremarkable. No pleural effusion. No pneumothorax. Heart/Mediastinum: Heart is within normal limits of size. Bones/joints: Unremarkable. XR/XR chest 1V portable [id number] IMPRESSION: Bilateral pneumonia not significantly changed from 12/06/2021.
--- NOTE | 2021-12-08 18:58 | ECG_ITS ---
[facility] Test Date: 2021-12-08 Pat Name: Mayra Ascencio Department: Room: Gender: Female Benefit Specialist: : [id number] Requested By: Kelly Bates Order Number: [id number] Ashlee MD: Marlee Olmso M.D. Measurements Intervals [place] Rate: 105 P: 19 [place]: 179 QRS: 28 QRSD: 87 T: 34 QT: 333 QTc: 441 Interpretive Statements SINUS TACHYCARDIA POSSIBLE INFERIOR MYOCARDIAL INFARCTION , OF INDETERMINATE AGE Compared to ECG 12/02/2021 18:36:41 Myocardial infarct finding now present Sinus rhythm no longer present T-wave abnormality no longer present Electronically Signed On 12-08-2021 20:37:39 COMPRESS MACHINE OPERATOR by Marlee Olmos M.D. [email or web address]
[2021-12-08 19:12] VITALS: BP 114/57; PULSE 108; RESP 17; O2SAT 94
[2021-12-08 19:14] LABS: Hematocrit 32.6 % (37.0-47.0); Hemoglobin 9.9 g/dL (11.5-15.3); Mean Corpuscular HGB Conc 30.4 g/dL (30.0-36.0); Mean Corpuscular Hemoglobin 22.2 pg (28.0-34.0); Mean Corpuscular Volume 73.3 fl (81-99); Mean Platelet Volume 9.3 fL (7.4-10.4); Platelet Count 830 10^3/cmm (130-400); Red Blood Count 4.45 10^6/uL (4.1-5.3); Red Cell Distribution Width 18.3 % (12.1-15.1); White Blood Count 22.9 10^3/uL (4.0-10.0)
--- NOTE | 2021-12-08 19:30 | W.ED.SOB ---
HPI - SOB/Dyspnea General: Chief Complaint: Shortness of Breath/Dyspnea Stated Complaint: SOB, PNEUMONIA Time Seen by Provider: 12/08/21 18:53 Source: patient and EMS Mode of arrival: EMS Limitations: altered mental status History of Present Illness: HPI Narrative: 56-year-old female who was admitted here last week discharged yesterday for pneumonia she is on 2 L of oxygen at baseline family states she had been desaturating at home EMS states it turned up to 4 L. Here patient is confused she is able to tell me the year but then has periods of confusion history is difficult from her due to this. She is continue to have cough and weakness. Family is not here at this time most of the history is from EMS Associated symptoms: Deny abdominal pain, chest pain, fever(s), nausea or vomiting Review of Systems Const: Denies: fever(s), chills, body aches or change in appetite Eyes: Denies: blurry vision or eye discomfort ENMT: Denies: throat pain or dental pain Card: Denies: chest pain Resp: Reports: dyspnea and non-productive cough GI: Denies: abdominal pain, nausea, vomiting or diarrhea : Denies: dysuria Musc: Denies: neck pain or back pain Skin/Breast: Denies: rash Neuro: Denies: headache(s) Psych: Denies: depression Xavier/Lymph: Denies: easy bruising All/Imm: Denies: urticaria PFSH ED PFSH: Medical History (HFpEF) heart failure with preserved ejection fraction Acute exacerbation of CHF (congestive heart failure) Acute hypoxemic respiratory failure Acute kidney injury Anemia CAD (coronary artery disease) Candidiasis of vagina Chest pain Chest pain, midsternal Chronic knee pain Chronic left-sided low back pain Chronic obstructive pulmonary disease, unspecified Chronic pain of left knee Compression fracture of L2 lumbar vertebra COPD (chronic obstructive pulmonary disease) COPD exacerbation Coronary artery disease due to type 2 diabetes mellitus Current every day smoker CVA (cerebral vascular accident) Dehydration Demand ischemia Diabetes type 2, uncontrolled Dyslipidemia Dyspnea Elevated troponin Encounter for long-term opiate analgesic use Essential hypertension Exposure to COVID-19 virus Fall Fibromyalgia, primary History of CVA (cerebrovascular accident) History of hypoglycemic coma Hyperlipidemia, mixed Hypotension Insomnia Intervertebral disc disorder of lumbar region with myelopathy Leukocytosis Low back pain radiating to both legs Lumbosacral spondylosis without myelopathy Neuropathy NSTEMI (non-ST elevated myocardial infarction) Thought to be secondary to plaque rupture. Angiogram July 04 no flow-limiting lesions, or restenosis of previous stent from April 2020 Numbness and tingling in both hands Obesity (BMI 35.0-39.9 without comorbidity) Opioid contract exists Osteoarthritis of left knee Osteoarthritis of spine at multiple levels Pericardial effusion Peripheral sensory neuropathy due to type 2 diabetes mellitus Pneumonia Pneumonia Pneumonia Pressure ulcer Prosthetic joint infection Right hip pain Sepsis Septic arthritis of knee, left Stenosis of left internal carotid artery with cerebral infarction Syncope Type 2 diabetes mellitus with diabetic autonomic (poly)neuropathy Unstable angina Urinary tract infection Vitamin D deficiency Surgical History History of arthroscopic surgery of elbow BILATERAL History of coronary angiogram Angiogram April 2020 with 90% circumflex lesion, drug-eluting stent placed by Dr. Jerome S/p bilateral carpal tunnel release S/P hysterectomy S/P knee surgery RIGHT S/P lumbar fusion DR. Shreya ZAYAS IN [place], [place] L4-L5, L5-S1 Status post left knee replacement Status post lumbar laminectomy Family History Other CAD (coronary artery disease) Cancer Diabetes Social History Smoking and tobacco status: current every day smoker cigarettes Packs smoked per day: 0.5 [ Other cigarette details: PER PATIENT REPORT] Smoking risk assessment/counseling performed?: Yes Alcohol intake: former Desire information about alcohol rehabilitation?: No Counseling given: No Desire information about substance/drug rehabilitation?: No Counseling given: No Caregiver/support person: No Lives independently: Yes Household members: family and other Details: son Housing: Manufactured/Mobile home Marital status: Unknown Marital status details: She and son state she is not service: No Current occupational status: unemployed Pets and animals: Yes History of recent travel: No Current gender identity: Female Physical Exam Const: COMMON NORMALS: patient oriented x3 GENERAL APPEARANCE: ill appearing HENMT: COMMON NORMALS: normocephalic and atraumatic HEAD & SCALP: normocephalic and atraumatic Eye: COMMON NORMALS: Equal, round and reactive pupils present and EOMs intact bilaterally PUPIL: Yes Equal, round and reactive pupils present Neck/C-Spine: COMMON NORMALS: full ROM and supple Chest: COMMONS NORMALS: normal inspection of the chest and normal palpation of entire chest wall Resp: COMMON NORMALS: No retractions, No use of accessory muscles and clear to auscultation bilaterally EFFORT & INSPECTION: Yes tachypneic AUSCULTATION: clear to auscultation bilaterally and rales Cardio: COMMON NORMALS: regular rate, regular rhythm and No murmurs present (Cardio) RATE: regular rate RHYTHM: regular rhythm GI: COMMON NORMALS: Normal to inspection, nondistended, normoactive bowel sounds present, Soft to palpation, non-tender and no masses PALPATION: Yes Soft to palpation Extremity: COMMON NORMALS: normal to inspection and full ROM Neuro: COMMON NORMALS: patient oriented x3, moves all extremities and no focal motor deficits Psych: COMMON NORMALS: mental status grossly normal, Normal thought process present and cooperative THOUGHT PROCESS: Normal thought process present Skin: COMMON NORMALS: no rashes or lesions noted and no wounds GENERAL SKIN EXAM: no rashes or lesions noted Course Vital Signs: Vital signs: Vital Signs Temperature 98.2 F 12/08/21 18:28 Pulse Rate 108 H 12/08/21 19:12 Respiratory Rate 17 12/08/21 19:12 Blood Pressure 114/57 12/08/21 19:12 Pulse Oximetry 94 12/08/21 19:12 MDM - SOB/Dyspnea Medical Decision Making Patient presents here with worsening pneumonia CT shows worsening pneumonia here patient still has elevated inflammatory markers will start back on IV antibiotics spoke to hospitalist will admit at this time. She does have some confusion here she is able answer most my questions but does get confused at times. Lab Data : 12/08/21 18:39 12/08/21 18:39 Labs/Radiology: Radiology Impressions Chest X-Ray 12/08/21 18:57 IMPRESSION: Bilateral pneumonia not significantly changed from 12/06/2021. Chest CTA 12/08/21 19:49 IMPRESSION: 1. Increasing pneumonia 2. No evidence of pulmonary embolism 3. No change in hilar and mediastinal adenopathy 4. Old granulomatous disease. Head CT 12/08/21 19:56 IMPRESSION: No acute intracranial finding. Laboratory Results WBC 22.9 10^3/uL (4.0-10.0) H 12/08/21 18:39 RBC 4.45 10^6/uL (4.1-5.3) 12/08/21 18:39 Hgb 9.9 g/dL (11.5-15.3) L 12/08/21 18:39 Hct 32.6 % (37.0-47.0) L 12/08/21 18:39 MCV 73.3 fl (81-99) L 12/08/21 18:39 MCH 22.2 pg (28.0-34.0) L 12/08/21 18:39 MCHC 30.4 g/dL (30.0-36.0) 12/08/21 18:39 RDW 18.3 % (12.1-15.1) H 12/08/21 18:39 Plt Count 830 10^3/cmm (130-400) H 12/08/21 18:39 MPV 9.3 fL (7.4-10.4) 12/08/21 18:39 Lymph % (Auto) Not Reportable 12/08/21 18:39 George % (Auto) Not Reportable 12/08/21 18:39 Lymph # (Auto) Not Reportable 12/08/21 18:39 George # (Auto) Not Reportable 12/08/21 18:39 Total Counted 100 (0-100) 12/08/21 18:39 Atypical Lymphs % 1.0 % (0-5) 12/08/21 18:39 Absolute Neutrophils 13.3 10^3/cmm (1.4-6.5) H 12/08/21 18:39 Segmented Neutrophils 42 % 12/08/21 18:39 Abs Segm Neuts (Man) 9.6 10/cmm (1.6-7.1) H 12/08/21 18:39 Band Neutrophils 16.0 % 12/08/21 18:39 Abs Band Neuts (Man) 3.7 10^3/cmm (0.0-1.2) H 12/08/21 18:39 Absolute Lymphocytes 4.6 10^3/cmm (1.2-3.4) H 12/08/21 18:39 Lymphocytes (Manual) 19 % 12/08/21 18:39 Monocytes (Manual) 12.0 % 12/08/21 18:39 Absolute Monocytes 2.7 10^3/cmm (0.1-0.6) H 12/08/21 18:39 Eosinophils (Manual) 6 % 12/08/21 18:39 Absolute Eosinophils 1.3 10^3/cmm (0.0-0.7) H 12/08/21 18:39 Basophils (Manual) 0.0 % 12/08/21 18:39 Absolute Basophils 0.0 10^3/cmm (0.0-0.2) 12/08/21 18:39 Metamyelocytes 3.0 % 12/08/21 18:39 Myelocytes 1.0 % 12/08/21 18:39 Platelet Estimate Increased (Normal) H 12/08/21 18:39 Giant Platelets Trace 12/08/21 18:39 PT 14.70 SECONDS (12.1-14.9) 12/08/21 18:39 INR 1.12 (0.8-1.2) 12/08/21 18:39 D-Dimer 4.59 ug/mIFEU (0-0.59) H 12/08/21 18:39 Specimen Type Arterial 12/08/21 18:57 Sample Site Radial, left 12/08/21 18:57 ABG pH 7.44 (7.35-7.45) 12/08/21 18:57 ABG pCO2 33.3 mmHg (35-45) L 12/08/21 18:57 ABG pO2 54.5 mmHg (80.0-100.0) L 12/08/21 18:57 ABG HCO3 22.8 mmol/L (22-26) 12/08/21 18:57 ABG Base Excess -0.9 mmol/L (-2.0-2.0) 12/08/21 18:57 Freddy Test Pos 12/08/21 18:57 Hematocrit 30.5 % (37-47) L 12/08/21 18:57 O2 Delivery Device Nc 12/08/21 18:57 O2 Liters/Min 4.0 % 12/08/21 18:57 Cylinder Handler ID [email or web address] 12/08/21 18:57 Sodium 135 mmol/L (136-145) L 12/08/21 18:39 Potassium 4.5 mmol/L (3.5-5.1) 12/08/21 18:39 Chloride 100 mmol/L (98-107) 12/08/21 18:39 Carbon Dioxide 21 mmol/L (22-29) L 12/08/21 18:39 Anion Gap 18.5 (5-19) 12/08/21 18:39 BUN 12 mg/dL (6-20) 12/08/21 18:39 Creatinine 0.6 mg/dL (0.5-0.9) 12/08/21 18:39 GFR Calculation 104.2 mL/min (90-130) 12/08/21 18:39 Glucose 143 mg/dL (65-115) H 12/08/21 18:39 Calculated Osmolality 282 mOsm/kg (285-295) L 12/08/21 18:39 Lactic Acid 2.5 mmol/L (0.5-2.2) H 12/08/21 18:39 Calcium 9.5 mg/dL (8.5-10.5) 12/08/21 18:39 Total Bilirubin 0.3 mg/dL (0.15-1.2) 12/08/21 18:39 AST 8 U/L (0-32) 12/08/21 18:39 ALT < 5 U/L (0-33) 12/08/21 18:39 Alkaline Phosphatase 97 IU/L (35-105) 12/08/21 18:39 Troponin T Baseline 72 ng/L (0-10) H 12/08/21 18:39 Troponin T 120 Minute 69.65 ng/L (0-10) H 12/08/21 20:24 Delta Troponin T -2.35 ABS# (0-10) L 12/08/21 20:24 C-Reactive Protein 233.6 mg/L (0.0-4.9) H 12/08/21 18:39 NT-Pro-B Natriuret Pep 220 pg/mL (0-125) H 12/08/21 18:39 Total Protein 6.8 g/dL (6.6-8.7) 12/08/21 18:39 Albumin 3.3 g/dL (3.5-5.2) L 12/08/21 18:39 Globulin 3.5 g/dL (1.3-4.6) 12/08/21 18:39 EKG Data EKG 1: I personally reviewed and interpreted this EKG as follows: EKG Interpretation Date: 12/08/21 EKG interpretation time: 19:09 Interpretation: sinus tach hr [address] or t wave abnormalities qrs 87 qtc 394 Discharge Plan Discharge Patient Disposition: Admitted As Inpatient Clinical Impression: Community acquired pneumonia Condition: Stable Prescriptions: No Action ergocalciferol (vitamin D2) 1,250 mcg (50,000 unit) capsule 1,250 mcg PO Q7D Qty: 4 2RF (DME) pen needle, diabetic [Comfort EZ Pen Bethesda] 31 gauge x 5/16 needle See Rx Instructions .Route Qty: 100 6RF Rx Instructions: use daily with levemir Repatha SureClick 140 mg/mL pen injector 140 mg SUBCUT .[id number] Qty: 2 5RF (DME) COCK UP SPLINT See Rx Instructions .Route .MEDSUPPLY Qty: 2 0RF Rx Instructions: As directed quetiapine 200 mg tablet 200 mg PO DAILY Qty: 30 1RF hydromorphone 4 mg tablet 4 mg PO Q6H PRN (Reason: pain) 30 Days Qty: 120 0RF Rx Instructions: fill on or after 12/11/21 duloxetine 60 mg capsule, delayed rel sprinkle 60 mg PO DAILY@08 30 Days Qty: 30 0RF cyclobenzaprine 10 mg tablet 10 mg PO TID PRN (Reason: muscle spasm) 30 Days Qty: 90 1RF pregabalin [Lyrica] 150 mg capsule 150 mg PO BID@0800,1800 30 Days Qty: 60 1RF nitroglycerin 0.4 mg tablet, sublingual See Rx Instructions .ROUTE .COMPLEX Qty: 25 3RF Dose Instruction: PLACE ONE TABLET UNDER TONGUE EVERY 5 MINUTES NEEDED FOR CHEST PAIN, MAX. 3 TABLETS IN 15 MIN, THEN SEEK MEDICAL ATTENTION Rx Instructions: PLACE ONE TABLET UNDER TONGUE EVERY 5 MINUTES NEEDED FOR CHEST PAIN, MAX. 3 TABLETS IN 15 MIN, THEN SEEK MEDICAL ATTENTION isosorbide mononitrate 60 mg tablet extended release 24 hr 60 mg PO DAILY Qty: 90 2RF losartan 50 mg tablet 50 mg PO DAILY@0800 Qty: 30 6RF (DME) pen needle, diabetic [Comfort EZ Pen Bethesda] 32 gauge x 5/32 needle See Rx Instructions .Route Qty: 100 2RF Rx Instructions: use 3times a day to inject insulin. atorvastatin 80 mg tablet 80 mg PO DAILY Qty: 30 3RF aspirin [Adult Aspirin Regimen] 81 mg tablet,delayed release (DR/EC) 81 mg PO DAILY Qty: 30 5RF Brilinta 90 mg tablet 90 mg PO BID@08,21 Qty: 180 4RF acetaminophen 325 mg Tablet 650 mg PO Q6H PRN (Reason: Mild/Mod Pain Or Temp >/= 101) Qty: 30 0RF oxybutynin chloride 5 mg tablet extended release 24hr 5 mg PO DAILY 0RF Lasix 20 mg tablet 10 mg PO EVERY OTHER DAY 0RF albuterol sulfate 90 mcg/actuation HFA aerosol inhaler 1 inh inhalation Q6H PRN (Reason: Shortness Of Breath) 0RF pantoprazole 40 mg tablet,delayed release (DR/EC) 40 mg PO DAILY 0RF Advair Diskus 250-50 mcg/dose Blister With Device 1 puff inhalation BID.RESPIRATORY 30 Days Qty: 60 0RF levofloxacin 500 mg Tablet 500 mg PO DAILY@0600 Qty: 6 0RF linezolid 600 mg tablet 600 mg PO BID 5 Days Qty: 10 0RF Spiriva with HandiHaler 18 mcg capsule, w/inhalation device 1 cap inhalation DAILY Qty: 30 0RF Rx Instructions: puncture 1 cap using device; one dose = 2 inhalations metoprolol succinate 25 mg tablet extended release 24 hr 50 mg PO DAILY Qty: 30 4RF Referrals: Naomy Goodwin FNP [Primary Care Provider] - Coding Level of Care Code ED Wrapper Hand for Nahed Fwd Exam Comprehensive
[2021-12-08 19:35] LABS: INR 1.12 (0.8-1.2)
[2021-12-08 19:36] LABS: Slide Review Slide Review Perform
[2021-12-08 19:37] LABS: ABG PCO2 33.3 mmHg (35-45); ABG PH Result 7.44 (7.35-7.45); Arterial Blood Gas Hematocrit 30.5 % (37-47); Base Excess ABG -0.9 mmol/L (-2.0-2.0); Blood Gas Allen Test Pos; Blood Gas Sample Site Radial, left; Blood Gas Sample Type Arterial; HCO3 ABG 22.8 mmol/L (22-26); Oxygen Device NC; PO2 ABG 54.5 mmHg (80.0-100.0)
[2021-12-08 19:38] LABS: Absolute Eosinophils 1.3 10^3/cmm (0.0-0.7); Absolute Neutrophil 13.3 10^3/cmm (1.4-6.5); Absolute Segmented Neutrophil 9.6 10/cmm (1.6-7.1); Band Neutrophils Absolute 3.7 10^3/cmm (0.0-1.2); Eosinophils 6 %; Giant Platelets Trace; Lymphocytes 19 %; Lymphocytes Absolute 4.6 10^3/cmm (1.2-3.4); Monocytes Absolute 2.7 10^3/cmm (0.1-0.6); Platelet Estimate Increased (Normal); Segmented Neutrophils 42 %; Total Cells Counted 100 (0-100)
[2021-12-08 19:44] LABS: D Dimer 4.59 ug/mIFEU (0-0.59); Lactic Sepsis W/Reflex 2.5 mmol/L (0.5-2.2)
--- NOTE | 2021-12-08 19:49 | CTR_ITS ---
PROCEDURE INFORMATION: Exam: CTA Chest With Contrast Exam date and time: 12/08/2021 7:49 PM Age: 56 years old Clinical indication: Shortness of breath; Patient HX: SOB TECHNIQUE: Imaging protocol: Computed tomographic angiography of the chest with contrast. 3D rendering (Not supervised by radiologist): MIP and/or 3D reconstructed images were created by the technologist. Radiation optimization: All CT scans at this facility use at least one of these dose optimization techniques: automated exposure control; mA and/or kV adjustment per patient size (includes targeted exams where dose is matched to clinical indication); or iterative reconstruction. Contrast material: OMNI 350; Contrast volume: 57 ml; Contrast route: INTRAVENOUS (IV); COMPARISON: CT angio chest PE protcl [id number] 12/02/2021 4:23 PM RADIATION DOSE METRICS: Total DLP (mGy-cm): 574.66 FINDINGS: Limitations: Study is somewhat limited by patient respiratory motion. Pulmonary arteries: There is no evidence of filling defects within the pulmonary arterial circulation to suggest pulmonary embolism. Aorta: There is no thoracic aortic aneurysm or dissection. Lungs: There is calcified granuloma in the left lower lobe. There are increasing areas of ground-glass opacity and peripheral consolidation in both lungs consistent with multifocal pneumonia. Pleural spaces: Unremarkable. No pneumothorax. No pleural effusion. Heart: Unremarkable. No cardiomegaly. No pericardial effusion. Lymph nodes: Hilar, paratracheal, prevascular and subcarinal adenopathy not significantly changed from 12/02/2021. There is calcified subcarinal adenopathy in keeping with old granulomatous disease. Spleen: The spleen demonstrates punctate calcifications, consistent with remote granulomatous organism exposure. Bones/joints: Unremarkable. No acute fracture. Soft tissues: Unremarkable. CT/CT angio chest PE protcl [id number] IMPRESSION: 1. Increasing pneumonia 2. No evidence of pulmonary embolism 3. No change in hilar and mediastinal adenopathy 4. Old granulomatous disease.
[2021-12-08 19:56] LABS: Alanine Aminotransferase < 5 U/L (0-33); Albumin Level 3.3 g/dL (3.5-5.2); Alkaline Phosphatase 97 IU/L (35-105); Anion Gap 18.5 (5-19); Aspartate Amino Transferase 8 U/L (0-32); Blood Urea Nitrogen 12 mg/dL (6-20); C Reactive Protein 233.6 mg/L (0.0-4.9); Calcium 9.5 mg/dL (8.5-10.5); Carbon Dioxide 21 mmol/L (22-29); Chloride 100 mmol/L (98-107); Globulin 3.5 g/dL (1.3-4.6); Glomerular Filtration Rate 104.2 mL/min (90-130); Glucose 143 mg/dL (65-115); NT Pro B Type Natriuretic Pept 220 pg/mL (0-125); Osmolality Calculated 282 mOsm/kg (285-295); Potassium 4.5 mmol/L (3.5-5.1); Sodium 135 mmol/L (136-145); Total Bilirubin 0.3 mg/dL (0.15-1.2); Total Protein 6.8 g/dL (6.6-8.7)
--- NOTE | 2021-12-08 19:56 | CTR_ITS ---
PROCEDURE INFORMATION: Exam: CT Head Without Contrast Exam date and time: 12/08/2021 7:56 PM Age: 56 years old Clinical indication: Altered mental status/memory loss; Patient HX: AMS TECHNIQUE: Imaging protocol: Computed tomography of the head without contrast. Radiation optimization: All CT scans at this facility use at least one of these dose optimization techniques: automated exposure control; mA and/or kV adjustment per patient size (includes targeted exams where dose is matched to clinical indication); or iterative reconstruction. COMPARISON: MR head wo con* [id number] 09/15/2021 2:33 PM RADIATION DOSE METRICS: Total DLP (mGy-cm): 907.34 FINDINGS: Brain: There is moderate cortical atrophy. Low-density changes in the white matter are consistent with nonspecific small vessel chronic ischemic change. There is no intracranial mass, hemorrhage or edema. Cerebral ventricles: No ventriculomegaly. Paranasal sinuses: Visualized sinuses are unremarkable. No fluid levels. Mastoid air cells: Visualized mastoid air cells are well aerated. Bones/joints: Unremarkable. No acute fracture. Soft tissues: Unremarkable. CT/CT head wo con* [id number] IMPRESSION: No acute intracranial finding.
[2021-12-08] MEDS: iohexol 350 mg/mL 100 mL Btl IV (20:10)
[2021-12-08 20:19] LABS: Troponin(5th) Baseline 72 ng/L (0-10)
[2021-12-08] MEDS: cefTRIAXone 1,000 MG in sodium chloride 0.9% (plus) 50 ML 100 MG IV (20:21)
[2021-12-08 20:55] LABS: Reflex Lactate Order REFLEX LACTIC ORDERD
--- NOTE | 2021-12-08 20:58 | ECG_ITS ---
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 Measurements Intervals [place] Rate: 103 P: 17 MT: 187 QRS: 14 QRSD: 93 T: 74 QT: 342 QTc: 448 Interpretive Statements SINUS TACHYCARDIA MODERATE ST DEPRESSION [0.05+ mV ST DEPRESSION] Compared to ECG 12/08/2021 19:09:17 ST (T wave) deviation now present Myocardial infarct finding no longer present Electronically Signed On 12-09-2021 20:08:46 [employer]LLER SKATE ASSEM[employer] by Troy Joyce M.D. [id number]
[2021-12-08 21:08] LABS: Troponin 5 2HR 69.65 ng/L (0-10)
[2021-12-08 21:09] LABS: Troponin 5 2HR Delta -2.35 ABS# (0-10)
[2021-12-08] MEDS: azithromycin 500 MG in sodium chloride 0.9% 250 ML 250 MG IV (21:16)
--- NOTE | 2021-12-08 21:25 | P.HP_ITS ---
Providers/Chief Complaint Admitting Physician: Elke Gresham MD Primary Care Provider: KATHY Stewart Chief Complaint: SOB, PNEUMONIA History of Present Illness Mayra Ascencio is a 56 year old female with past medical history of chronic smoking, recurrent MRSA pneumonia, COPD, CVA, type 2 diabetes mellitus, fibromyalgia, history of MRSA infection to the knee, non-ST elevation MS in April 2020, anxiety, occasional episodes of confusion who was discharged from the hospital on 12/07 after being treated for MRSA pneumonia with IV antibiotics on oral linezolid and Levaquin presented back to the ER on 12/08 via EMS with complaints of shortness of breath.? As per the patient she did not even reach home as while she was getting up on the porch she fell and hit her back after which she had increased difficulty in breathing.? In the ER patient required 4 L of oxygen to maintain a saturation over 92%.? At baseline patient is on 2 L of oxygen supplementation to maintain saturation over 88%. On my exam, she is on room air saturating 90%, denies any complains, stating 'she does not like to wear Oxygen'. States never got to go home and son dropped him back to ER and would want to go home with sister tomorrow Review of Systems General: Reports: 10 or more systems reviewed and unremarkable except in HPI and below Const: Denies: fever(s), chills or body aches Eyes: Denies: change in vision, blurry vision or photophobia ENMT: Reports: hoarseness; Denies: throat pain, enlarged tonsils, odynophagia or nasal congestion Card: Denies: chest pain, palpitations, irregular heart rhythm, edema, swelling of feet/ankles, lightheadedness, pre-syncope, dyspnea on exertion or orthopnea Resp: Denies: dyspnea, productive cough, non-productive cough, wheezing, stridor, pain on inspiration, change in phlegm color, hemoptysis or chest congestion GI: Denies: abdominal pain, nausea, vomiting, hematemesis, coffee ground emesis, dysphagia, heartburn, diarrhea, constipation, GI cramping, change in stool character, hematochezia or melena : Denies: flank pain, difficulty voiding, dysuria, urinary frequency, urinary urgency, urinary hesitancy or hematuria Musc: Denies: neck pain, back pain, extremity pain, joint swelling, joint warmth or deformity Skin/Breast: Reports: surgical incision; Denies: rash Neuro: Denies: headache(s), numbness in extremities, weakness in extremities, sensory changes, difficulty walking, frequent falls, dizziness, vertigo, behavioral changes, Slurred speech present or seizure-like activity Psych: Denies: anxiety, depression, suicidal ideation or homicidal ideation Endo: Denies: polyuria, polydipsia, tired all the time, cold intolerance or hot flashes Xavier/Lymph: Denies: easy bruising or easy bleeding All/Imm: Denies: urticaria or acute wheezing Medications/Allergies Home Medications Medication Instructions Recorded Confirmed Last Taken Type acetaminophen 325 mg tablet 650 mg PO Q6H PRN #30 tab 10/16/20 12/09/21 04/21/21 Rx losartan 50 mg tablet 50 mg PO DAILY@0800 #30 tab 07/06/21 12/09/21 Unknown Rx ergocalciferol (vitamin D2) 1,250 1,250 mcg PO Q7D #4 cap 07/07/21 12/09/21 08/10/21 Rx mcg (50,000 unit) capsule evolocumab 140 mg/mL subcutaneous 140 mg SUBCUT .[id number] #2 ml 07/07/21 12/09/21 08/05/21 Rx pen injector (Repdelfinaa Harpalick) pen needle, diabetic 31 gauge x #100 ea 07/07/21 12/09/21 Unknown Rx 5/16 (Comfort EZ Pen [place]) pen needle, diabetic 32 gauge x #100 ea 08/11/21 12/09/21 Unknown Rx 5/32 (Comfort EZ Pen [place]) COCK UP SPLINT #2 ea NS 08/26/21 12/09/21 Unknown Rx quetiapine 200 mg tablet 200 mg PO DAILY #30 tab 09/09/21 12/09/21 Unknown Rx aspirin 81 mg tablet,delayed 81 mg PO DAILY #30 tab 09/15/21 12/09/21 12/02/21 Rx release (Adult Aspirin Regimen) atorvastatin 80 mg tablet 80 mg PO DAILY #30 tab 09/15/21 12/09/21 08/13/21 20:00 Rx ticagrelor 90 mg tablet (Brilinta) 90 mg PO BID@ #180 tab 11/12/09/21 12/02/21 Rx cyclobenzaprine 10 mg tablet 10 mg PO TID PRN 30 Days #90 tab 11/11/21 12/09/21 Unknown Rx duloxetine 60 mg capsule,delayed 60 mg PO DAILY@08 30 Days #30 cap 11/11/21 12/09/21 Unknown Rx release sprinkle hydromorphone 4 mg tablet 4 mg PO Q6H PRN 30 Days #120 tab 11/11/21 12/09/21 Unknown Rx pregabalin 150 mg capsule (Lyrica) 150 mg PO BID@0800,1800 30 Days 11/11/21 12/09/21 Unknown Rx #60 cap isosorbide mononitrate 60 mg 60 mg PO DAILY #90 tab 11/16/21 12/09/21 Unknown Rx tablet,extended release 24 hr albuterol sulfate 90 mcg/actuation 1 inh INHALATION Q6H PRN 12/02/21 12/09/21 Unknown History aerosol inhaler oxybutynin chloride 5 mg 5 mg PO DAILY 12/02/21 12/09/21 Unknown History tablet,extended release 24 hr pantoprazole 40 mg tablet,delayed 40 mg PO DAILY 12/02/21 12/09/21 Unknown History release fluticasone 250 mcg-salmeterol 50 1 puff INHALATION BID.RESPIRATORY 12/07/21 12/09/21 Unknown Rx mcg/dose blistr powdr for 30 Days #60 ea inhalation (Advair Diskus) levofloxacin 500 mg tablet 500 mg PO DAILY@0600 #6 tab 12/07/21 12/09/21 Unknown Rx linezolid 600 mg tablet 600 mg PO BID 5 Days #10 tab 12/07/21 12/09/21 Unknown Rx metoprolol succinate 25 mg 50 mg PO DAILY #30 tab 12/07/21 12/09/21 Unknown Rx tablet,extended release 24 hr tiotropium bromide 18 mcg capsule 1 cap INHALATION DAILY #30 inh 12/07/21 12/09/21 Unknown Rx with inhalation device (Spiriva with HandiHaler) furosemide 20 mg tablet (Lasix) 20 mg PO DAILY #0 tab 12/09/21 12/09/21 Unknown Rx insulin detemir U-100 100 unit/mL 10 unit SUBCUT QAM 12/09/21 12/09/21 Unknown History (3 mL) subcutaneous pen (Levemir FlexTouch U-100 Insulin) insulin lispro 100 unit/mL See Rx Instructions .ROUTE .COMPLEX 12/09/21 12/09/21 Unknown History subcutaneous pen (Humalog KwikPen (U-100) Insulin) nitroglycerin 0.4 mg sublingual 0.4 mg SUBLINGUAL Q5M PRN 12/09/21 12/09/21 Unknown History tablet (Nitrostat) prednisone 10 mg tablet See Taper PO DAILY #42 tab 12/09/21 Unknown Rx Allergies Allergy/AdvReac Type Severity Reaction Status Date / Time fentanyl Allergy Unknown ALGY-Difficulty Verified 11/16/21 15:55 Breathing adhesive Allergy Unknown Verified 11/16/21 15:55 clindamycin Allergy ADR-Itching Verified 11/16/21 15:55 codeine Allergy Unknown Verified 11/16/21 15:55 hydrocodone Allergy Unknown Verified 11/16/21 15:55 latex Allergy ALGY-Swell Verified 11/16/21 15:55 Lip/Tongue/Throat naproxen [From Naprosyn] Allergy Unknown Verified 11/16/21 15:55 nut - unspecified Allergy ALGY-Anaphy Verified 11/16/21 15:55 laxis oxycodone [From Roxicodone] Allergy ADR-Muscle Verified 11/16/21 15:55 Pain Penicillins Allergy Unknown Verified 11/16/21 15:55 sulfamethoxazole Allergy ADR-Migrain Verified 11/16/21 15:55 [From Bactrim] e trimethoprim [From Bactrim] Allergy ADR-Migrain Verified 11/16/21 15:55 e PFSH Acute PFSH: Medical History (HFpEF) heart failure with preserved ejection fraction Acute exacerbation of CHF (congestive heart failure) Acute hypoxemic respiratory failure Acute kidney injury Anemia CAD (coronary artery disease) Candidiasis of vagina Chest pain Chest pain, midsternal Chronic knee pain Chronic left-sided low back pain Chronic obstructive pulmonary disease, unspecified Chronic pain of left knee Compression fracture of L2 lumbar vertebra COPD (chronic obstructive pulmonary disease) COPD exacerbation Coronary artery disease due to type 2 diabetes mellitus Current every day smoker CVA (cerebral vascular accident) Dehydration Demand ischemia Diabetes type 2, uncontrolled Dyslipidemia Dyspnea Elevated troponin Encounter for long-term opiate analgesic use Essential hypertension Exposure to COVID-19 virus Fall Fibromyalgia, primary History of CVA (cerebrovascular accident) History of hypoglycemic coma Hyperlipidemia, mixed Hypotension Insomnia Intervertebral disc disorder of lumbar region with myelopathy Leukocytosis Low back pain radiating to both legs Lumbosacral spondylosis without myelopathy Neuropathy NSTEMI (non-ST elevated myocardial infarction) Thought to be secondary to plaque rupture. Angiogram July 04 no flow- limiting lesions, or restenosis of previous stent from April 2020 Numbness and tingling in both hands Obesity (BMI 35.0-39.9 without comorbidity) Opioid contract exists Osteoarthritis of left knee Osteoarthritis of spine at multiple levels Pericardial effusion Peripheral sensory neuropathy due to type 2 diabetes mellitus Pneumonia Pneumonia Pneumonia Pressure ulcer Prosthetic joint infection Right hip pain Sepsis Septic arthritis of knee, left Stenosis of left internal carotid artery with cerebral infarction Syncope Type 2 diabetes mellitus with diabetic autonomic (poly)neuropathy Unstable angina Urinary tract infection Vitamin D deficiency Surgical History History of arthroscopic surgery of elbow BILATERAL History of coronary angiogram Angiogram April 2020 with 90% circumflex lesion, drug-eluting stent placed by Dr. Jerome S/p bilateral carpal tunnel release S/P hysterectomy S/P knee surgery RIGHT S/P lumbar fusion DR. Shreya ZAYAS IN [place], [place] L4-L5, L5-S1 Status post left knee replacement Status post lumbar laminectomy Family History Other CAD (coronary artery disease) Cancer Diabetes Social History Smoking and tobacco status: current every day smoker cigarettes Packs smoked per day: 0.5 [ Other cigarette details: PER PATIENT REPORT] Smoking risk assessment/counseling performed?: Yes Alcohol intake: former Desire information about alcohol rehabilitation?: No Counseling given: No Desire information about substance/drug rehabilitation?: No Counseling given: No Caregiver/support person: No Lives independently: Yes Household members: family and other Details: son Housing: Manufactured/Mobile home Marital status: Unknown Marital status details: She and son state she is not service: No Current occupational status: unemployed Pets and animals: Yes History of recent travel: No Current gender identity: Female Vitals/I&O/Wt Last Vital Signs Temp 98.2 F 12/09/21 11:32 Pulse 84 12/09/21 14:38 Resp 20 H 12/09/21 14:38 BP 112/72 12/09/21 11:32 Pulse Ox 89 L 12/09/21 14:38 12/09/21 12/09/21 12/09/21 06:59 14:59 22:59 Intake Total 600 / 600 Output Total 1400 / 1400 600 / 600 Balance -1400 / -1100 0 / 0 Weight last 48 hrs Weight 96.162 kg Weight 89.993 kg Physical Exam Const: COMMON NORMALS: patient oriented x3 HENMT: COMMON NORMALS: normocephalic and atraumatic HEAD & SCALP: normocephalic and atraumatic Eye: COMMON NORMALS: Equal, round and reactive pupils present and EOMs intact bilaterally PUPIL: Yes Equal, round and reactive pupils present Neck/C-Spine: COMMON NORMALS: full ROM and supple Chest: COMMONS NORMALS: normal inspection of the chest and normal palpation of entire chest wall Resp: COMMON NORMALS: No retractions, No use of accessory muscles and clear to auscultation bilaterally EFFORT & INSPECTION: Yes tachypneic AUSCULTATION: crackles Laterality: bilateral, rales and bronchovesicular breath sounds Cardio: COMMON NORMALS: regular rate, regular rhythm and No murmurs present ( Cardio) RATE: regular rate RHYTHM: regular rhythm GI: COMMON NORMALS: Normal to inspection, nondistended, normoactive bowel sounds present, Soft to palpation, non-tender and no masses PALPATION: Yes Soft to palpation Extremity: COMMON NORMALS: normal to inspection and full ROM RIGHT UPPER EXTREMITY: Yes wrist RIGHT LOWER EXTREMITY: Yes hip joint, Yes upper leg, Yes knee joint, Yes lower leg, Yes foot & digits and Yes foot & digits LEFT LOWER EXTREMITY: Yes hip joint, Yes upper leg, Yes knee joint, Yes lower leg, Yes ankle joint and Yes foot & digits Neuro: COMMON NORMALS: patient oriented x3, moves all extremities and no focal motor deficits Psych: COMMON NORMALS: mental status grossly normal, Normal thought process present and cooperative THOUGHT PROCESS: Normal thought process present Skin: COMMON NORMALS: no rashes or lesions noted and no wounds GENERAL SKIN EXAM: no rashes or lesions noted WOUNDS: Yes surgical site Details: no odor Data : 12/08/21 18:39 12/08/21 18:39 Micro: Microbiology 12/08/21 19:52 Blood Culture - Preliminary Blood SPECIMEN COLLECTED 12/08/21 19:50 Blood Culture - Preliminary Blood SPECIMEN COLLECTED A&P Assessment and plan (1) Fall: Mechanical. Denies any chest pain, dizziness, aura or seizure like activity No fracture on chest imaging. Status: Acute (2) Acute and chronic respiratory failure with hypoxia: Most likely 2/2 COPD exacerbation from fall in setting of recent PNA. Solumedrol 40 mg Q4h duoneb, pulmicort keep sat over 88% Status: Acute (3) Community acquired pneumonia: C/w oral linezolid and levoflox to finish treatment. Check procal. WBC trending down, afebrile. CT imaging most likely radiographic lag. Otherwise well appearing. If has fever will uptitrate and culture. Status: Acute Qualifiers: Laterality: unspecified laterality Qualified Code(s): J18.9 - Pneumonia, unspecified organism (4) COPD (chronic obstructive pulmonary disease): Status: Acute (5) Compression fracture of L2 lumbar vertebra: Status: Chronic (6) Encounter for long-term opiate analgesic use: Status: Acute Attestations Medical Necessity Statement*: under obs for less than 2 MN for COPD exacerbation from fall Coding Level of Care Code Acute [employer] [facility] Diagnoses Acute and chronic respiratory failure with hypoxia J96.21 Community acquired pneumonia J18.9 Laterality: unspecified laterality COPD (chronic obstructive pulmonary disease) J44.9 Compression fracture of L2 lumbar vertebra S32.020A Encounter for long-term opiate analgesic use Z79.891 Fall W19.XXXA
[2021-12-08 21:40] LABS: Lactic Acid level (Lactate) 1.6 mmol/L (0.5-2.2)
[2021-12-08 22:00] VITALS: PULSE 104
[2021-12-08 22:06] VITALS: BMI 35.2
[2021-12-08 22:31] VITALS: BP 126/74; PULSE 98; RESP 16; TEMP 36.6; O2SAT 95
[2021-12-08 22:41] VITALS: BP 126/74; PULSE 97; RESP 16; TEMP 36.6; O2SAT 94
[2021-12-08 22:47] LABS: Adenovirus Not Detected (NOT DETECT); Chlamydia Pneumoniae Not Detected (NOT DETECT); Coronavirus 229E,HKU1,NL63,OC4 Not Detected (NOT DETECT); Human Metapneumovirus Not Detected (NOT DETECT); Human Rhinovirus/Enterovirus Not Detected (NOT DETECT); Influenza A Not Detected (NOT DETECT); Influenza A H1 Not Detected (NOT DETECT); Influenza A H1-2009 Not Detected (NOT DETECT); Influenza A H3 Not Detected (NOT DETECT); Influenza B Not Detected (NOT DETECT); Mycoplasma Pneumoniae Not Detected (NOT DETECT); Parainfluenza Virus Type 1 Not Detected (NOT DETECT); Parainfluenza Virus Type 2 Not Detected (NOT DETECT); Parainfluenza Virus Type 3 Not Detected (NOT DETECT); Parainfluenza Virus Type 4 Not Detected (NOT DETECT); Respiratory Syncytial Virus A Not Detected (NOT DETECT); Respiratory Syncytial Virus B Not Detected (NOT DETECT); SARS-COV-2 Not Detected (NOT DETECT)
--- NOTE | 2021-12-09 00:58 | ECG_ITS ---
[facility] Test Date: 2021-12-09 Pat Name: Mayra Ascencio Department: Room: 252 Gender: Female Transmissions Systems Operator: : [id number] Requested By: Kelly Bates Order Number: [id number] Ashlee MD: Troy Joyce M.D. Measurements Intervals [place] Rate: 102 P: 14 PA: 186 QRS: 5 QRSD: 98 T: 58 QT: 352 QTc: 460 Interpretive Statements SINUS TACHYCARDIA NONSPECIFIC ST & T-WAVE ABNORMALITY ABNORMAL RHYTHM ECG Compared to ECG 12/08/2021 23:09:35 T-wave abnormality now present ST (T wave) deviation no longer present Electronically Signed On 12-09-2021 20:11:32 DEVELOPMENT MECHANIC by Troy Joyce M.D. [id number]
[2021-12-09 01:09] LABS: Troponin 5 6HR 68.58 ng/L (0-10)
[2021-12-09 01:10] LABS: Troponin 5 6HR Delta -3.42 ng/L (0-12)
[2021-12-09 03:34] VITALS: RESP 16
[2021-12-09 04:00] VITALS: BP 120/74; PULSE 94; RESP 17; TEMP 36.7; O2SAT 93
[2021-12-09] MEDS: FUROsemide 10 mg/mL SDV 2mL 20 MG IVP (04:15)
[2021-12-09] MEDS: levoFLOXacin 500 mg Tablet PO (04:17)
[2021-12-09 06:45] LABS: Glucose Point of Care 165 mg/dL (70-110)
[2021-12-09 07:09] VITALS: BP 120/66; PULSE 106; RESP 14; TEMP 36.9; O2SAT 91
[2021-12-09] MEDS: ipratropium-albuterol 3 mL Neb INHALATION ×2 (08:28→14:33)
[2021-12-09 08:33] VITALS: PULSE 64; RESP 20; O2SAT 89
--- NOTE | 2021-12-09 08:37 | PC.RESP ---
Pt states she was sent home without medications.
[2021-12-09 08:38] LABS: NT Pro B Type Natriuretic Pept 186 pg/mL (0-125); Procalcitonin 0.38 ng/mL (0-0.5)
[2021-12-09] MEDS: FUROsemide 10 mg/mL SDV 4mL 40 MG IVP (09:19)
[2021-12-09] MEDS: metoprolol succinate ER (24 HR) 25 mg Tablet 50 MG PO (09:19)
[2021-12-09] MEDS: linezolid 600 mg Tablet PO (09:19)
[2021-12-09] MEDS: aspirin 81 mg EC Tablet PO (09:20)
[2021-12-09] MEDS: pantoprazole DR 40 mg Tablet PO (09:20)
[2021-12-09] MEDS: pregabalin 150 mg Capsule PO (09:20)
[2021-12-09] MEDS: atorvastatin 40 mg Tablet 80 MG PO (09:22)
[2021-12-09] MEDS: quetiapine 100 mg Tablet 200 MG PO (09:22)
[2021-12-09] MEDS: duloxetine 60 mg Capsule PO (09:22)
[2021-12-09] MEDS: isosorbide mononitrate ER 60 mg Tablet PO (09:23)
[2021-12-09] MEDS: losartan 50 mg Tablet PO (09:23)
[2021-12-09] MEDS: ticagrelor 90 mg Tablet PO (09:28)
[2021-12-09] MEDS: oxybutynin chloride XL 5 MG TABLET PO (09:28)
--- NOTE | 2021-12-09 11:08 | P.DS_ITS ---
Discharge Providers Date of Admission: 12/08/21 21:04 Date of Discharge: December 09, 2021 Attending Provider at Admission: Elke Gresham MD Attending Provider at Discharge: Cornelius Joyce MD Primary Care Provider: KATHY Stewart Reason for Visit Reason for Visit: SOB, PNEUMONIA Hospital Course Hospital Course Mayra Ascencio is a 56 year old female with past medical history of chronic smoking, recurrent MRSA pneumonia, COPD, CVA, type 2 diabetes mellitus, fibromyalgia, history of MRSA infection to the knee, non-ST elevation CT in April 2020, anxiety, occasional episodes of confusion who was discharged from the hospital on 12/07 after being treated for MRSA pneumonia with IV antibiotics on oral linezolid and Levaquin presented back to the ER on 12/08 via EMS with complaints of shortness of breath. As per the patient she did not even reach home as while she was getting up on the porch she fell and hit her back after which she had increased difficulty in breathing. In the ER patient required 4 L of oxygen to maintain a saturation over 92%. At baseline patient is on 2 L of oxygen supplementation to maintain saturation over 88%. Patient's leukocytosis continues to improve, patient has not taken her oral antibiotics till now as she got her medications only yesterday. CT chest imaging was done which was negative for any rib fracture but was concerning for a possible progression of pneumonia. Repeat COVID-19 PCR was checked and was negative. Overnight patient received IV Lasix. Patient had come back to her baseline by the next day and wanted to go home. She states she thinks her symptoms are most likely because of the fall. Changes in the T-spine is most likely related to her radiological lag. Patient clinically is continues to improve. She is discharged hemodynamically stable condition on slow steroid taper, continuation of antibiotics, continuation of incentive spirometry and with advised to follow-up with producer director for chronic COPD and recurrent MRSA pneumonia. Patient verbalized understanding and wants to go home as soon as possible. Discharge Data Studies Completed and Pending Completed Studies During Hospitalization Category Date Time Status CT head wo con* [id number] Urgent Cat Scan 12/08/21 19:56 Completed CTA chest [CT angio chest PE protcl 29027] Urgent Cat Scan 12/08/21 19:49 Completed XR chest 1V portable [id number] Stat Exams 12/08/21 18:57 Completed Pending at discharge Category Date Time Status Blood Culture Stat Lab 12/08/21 19:52 Results Complete Blood Count w/Auto AM LABS Lab 12/10/21 04:00 Ordered Comprehensive Metabolic Panel AM LABS Lab 12/10/21 04:00 Ordered Procalcitonin AM LABS Lab 12/10/21 04:00 Ordered Radiology Impressions Chest X-Ray 12/08/21 18:57 IMPRESSION: Bilateral pneumonia not significantly changed from 12/06/2021. Chest CTA 12/08/21 19:49 IMPRESSION: 1. Increasing pneumonia 2. No evidence of pulmonary embolism 3. No change in hilar and mediastinal adenopathy 4. Old granulomatous disease. Head CT 12/08/21 19:56 IMPRESSION: No acute intracranial finding. Laboratory Results WBC 22.9 10^3/uL (4.0-10.0) H 12/08/21 18:39 RBC 4.45 10^6/uL (4.1-5.3) 12/08/21 18:39 Hgb 9.9 g/dL (11.5-15.3) L 12/08/21 18:39 Hct 32.6 % (37.0-47.0) L 12/08/21 18:39 MCV 73.3 fl (81-99) L 12/08/21 18:39 MCH 22.2 pg (28.0-34.0) L 12/08/21 18:39 MCHC 30.4 g/dL (30.0-36.0) 12/08/21 18:39 RDW 18.3 % (12.1-15.1) H 12/08/21 18:39 Plt Count 830 10^3/cmm (130-400) H 12/08/21 18:39 MPV 9.3 fL (7.4-10.4) 12/08/21 18:39 Lymph % (Auto) Not Reportable 12/08/21 18:39 [place] % (Auto) Not Reportable 12/08/21 18:39 Lymph # (Auto) Not Reportable 12/08/21 18:39 [place] # (Auto) Not Reportable 12/08/21 18:39 Total Counted 100 (0-100) 12/08/21 18:39 Atypical Lymphs % 1.0 % (0-5) 12/08/21 18:39 Absolute Neutrophils 13.3 10^3/cmm (1.4-6.5) H 12/08/21 18:39 Segmented Neutrophils 42 % 12/08/21 18:39 Abs Segm Neuts (Man) 9.6 10/cmm (1.6-7.1) H 12/08/21 18:39 Band Neutrophils 16.0 % 12/08/21 18:39 Abs Band Neuts (Man) 3.7 10^3/cmm (0.0-1.2) H 12/08/21 18:39 Absolute Lymphocytes 4.6 10^3/cmm (1.2-3.4) H 12/08/21 18:39 Lymphocytes (Manual) 19 % 12/08/21 18:39 Monocytes (Manual) 12.0 % 12/08/21 18:39 Absolute Monocytes 2.7 10^3/cmm (0.1-0.6) H 12/08/21 18:39 Eosinophils (Manual) 6 % 12/08/21 18:39 Absolute Eosinophils 1.3 10^3/cmm (0.0-0.7) H 12/08/21 18:39 Basophils (Manual) 0.0 % 12/08/21 18:39 Absolute Basophils 0.0 10^3/cmm (0.0-0.2) 12/08/21 18:39 Metamyelocytes 3.0 % 12/08/21 18:39 Myelocytes 1.0 % 12/08/21 18:39 Platelet Estimate Increased (Normal) H 12/08/21 18:39 Giant Platelets Trace 12/08/21 18:39 PT 14.70 SECONDS (12.1-14.9) 12/08/21 18:39 INR 1.12 (0.8-1.2) 12/08/21 18:39 D-Dimer 4.59 ug/mIFEU (0-0.59) H 12/08/21 18:39 Specimen Type Arterial 12/08/21 18:57 Sample Site Radial, left 12/08/21 18:57 ABG pH 7.44 (7.35-7.45) 12/08/21 18:57 ABG pCO2 33.3 mmHg (35-45) L 12/08/21 18:57 ABG pO2 54.5 mmHg (80.0-100.0) L 12/08/21 18:57 ABG HCO3 22.8 mmol/L (22-26) 12/08/21 18:57 ABG Base Excess -0.9 mmol/L (-2.0-2.0) 12/08/21 18:57 Freddy Test Pos 12/08/21 18:57 Hematocrit 30.5 % (37-47) L 12/08/21 18:57 O2 Delivery Device Nc 12/08/21 18:57 O2 Liters/Min 4.0 % 12/08/21 18:57 Firearms Expert ID Hensa 12/08/21 18:57 Sodium 135 mmol/L (136-145) L 12/08/21 18:39 Potassium 4.5 mmol/L (3.5-5.1) 12/08/21 18:39 Chloride 100 mmol/L (98-107) 12/08/21 18:39 Carbon Dioxide 21 mmol/L (22-29) L 12/08/21 18:39 Anion Gap 18.5 (5-19) 12/08/21 18:39 BUN 12 mg/dL (6-20) 12/08/21 18:39 Creatinine 0.6 mg/dL (0.5-0.9) 12/08/21 18:39 GFR Calculation 104.2 mL/min (90-130) 12/08/21 18:39 Glucose 143 mg/dL (65-115) H 12/08/21 18:39 POC Glucose 165 mg/dL (70-110) H 12/09/21 06:28 Calculated Osmolality 282 mOsm/kg (285-295) L 12/08/21 18:39 Lactic Acid 2.5 mmol/L (0.5-2.2) H 12/08/21 18:39 Lactic Acid (Sepsis) 1.6 mmol/L (0.5-2.2) 12/08/21 21:12 Calcium 9.5 mg/dL (8.5-10.5) 12/08/21 18:39 Total Bilirubin 0.3 mg/dL (0.15-1.2) 12/08/21 18:39 AST 8 U/L (0-32) 12/08/21 18:39 ALT < 5 U/L (0-33) 12/08/21 18:39 Alkaline Phosphatase 97 IU/L (35-105) 12/08/21 18:39 Troponin T Baseline 72 ng/L (0-10) H 12/08/21 18:39 Troponin T 120 Minute 69.65 ng/L (0-10) H 12/08/21 20:24 Delta Troponin T -2.35 ABS# (0-10) L 12/08/21 20:24 Troponin T Hi Sens 6Hr 68.58 ng/L (0-10) H 12/09/21 00:40 Troponin T Hi Sens 6Hr Delta -3.42 ng/L (0-12) L 12/09/21 00:40 C-Reactive Protein 233.6 mg/L (0.0-4.9) H 12/08/21 18:39 NT-Pro-B Natriuret Pep 186 pg/mL (0-125) H 12/09/21 00:40 Total Protein 6.8 g/dL (6.6-8.7) 12/08/21 18:39 Albumin 3.3 g/dL (3.5-5.2) L 12/08/21 18:39 Globulin 3.5 g/dL (1.3-4.6) 12/08/21 18:39 Procalcitonin 0.38 ng/mL (0-0.5) 12/09/21 00:40 Coronavirus 229E (PCR) Not detected (NOT DETECT) 12/08/21 20:23 SARS-CoV-2 (PCR) Not detected (NOT DETECT) 12/08/21 20:23 Vitals Last Vital Signs Temp 98.4 F 12/09/21 07:09 Pulse 64 12/09/21 08:33 Resp 20 H 12/09/21 08:33 BP 120/66 12/09/21 07:09 Pulse Ox 89 L 12/09/21 08:33 Discharge Plan Discharge Patient Disposition: Home Condition: Stable Prescriptions: New prednisone 10 mg tablet See Taper mg PO DAILY Qty: 42 0RF Taper: predniSONE 60-10 60 mg Daily for 2 Days and 0 Hour 50 mg Daily for 2 Days and 0 Hour 40 mg Daily for 2 Days and 0 Hour 30 mg Daily for 2 Days and 0 Hour 20 mg Daily for 2 Days and 0 Hour 10 mg Daily for 2 Days and 0 Hour Continued ergocalciferol (vitamin D2) 1,250 mcg (50,000 unit) capsule 1,250 mcg PO Q7D Qty: 4 2RF Rx Instructions: on mon (DME) pen needle, diabetic [Comfort EZ Pen [employer]] 31 gauge x 5/16 needle See Rx Instructions .Route Qty: 100 6RF Rx Instructions: use daily with levemir Repatha SureClick 140 mg/mL pen injector 140 mg SUBCUT .[id number] Qty: 2 5RF (DME) COCK UP SPLINT See Rx Instructions .Route .MEDSUPPLY Qty: 2 0RF Rx Instructions: As directed quetiapine 200 mg tablet 200 mg PO DAILY Qty: 30 1RF hydromorphone 4 mg tablet 4 mg PO Q6H PRN (Reason: pain) 30 Days Qty: 120 0RF Rx Instructions: fill on or after 12/11/21 duloxetine 60 mg capsule, delayed rel sprinkle 60 mg PO DAILY@08 30 Days Qty: 30 0RF cyclobenzaprine 10 mg tablet 10 mg PO TID PRN (Reason: muscle spasm) 30 Days Qty: 90 1RF pregabalin [Lyrica] 150 mg capsule 150 mg PO BID@0800,1800 30 Days Qty: 60 1RF isosorbide mononitrate 60 mg tablet extended release 24 hr 60 mg PO DAILY Qty: 90 2RF losartan 50 mg tablet 50 mg PO DAILY@0800 Qty: 30 6RF (DME) pen needle, diabetic [Comfort EZ Pen [employer]] 32 gauge x 5/32 needle See Rx Instructions .Route Qty: 100 2RF Rx Instructions: use 3times a day to inject insulin. atorvastatin 80 mg tablet 80 mg PO DAILY Qty: 30 3RF aspirin [Adult Aspirin Regimen] 81 mg tablet,delayed release (DR/EC) 81 mg PO DAILY Qty: 30 5RF Brilinta 90 mg tablet 90 mg PO BID@08,21 Qty: 180 4RF Nitrostat 0.4 mg Tablet, Sublingual 0.4 mg SUBLINGUAL Q5M PRN (Reason: Chest Pain) 0RF Rx Instructions: do not exceed 3 doses per episode Humalog KwikPen Insulin 100 unit/mL insulin pen See Rx Instructions .ROUTE .COMPLEX 0RF Rx Instructions: sliding scale subcutaneously tid Levemir FlexTouch U-100 Insuln 100 unit/mL (3 mL) insulin pen 10 unit SUBCUT QAM 0RF acetaminophen 325 mg Tablet 650 mg PO Q6H PRN (Reason: Mild/Mod Pain Or Temp >/= 101) Qty: 30 0RF oxybutynin chloride 5 mg tablet extended release 24hr 5 mg PO DAILY 0RF albuterol sulfate 90 mcg/actuation HFA aerosol inhaler 1 inh inhalation Q6H PRN (Reason: Shortness Of Breath) 0RF pantoprazole 40 mg tablet,delayed release (DR/EC) 40 mg PO DAILY 0RF fluticasone propion-salmeterol [Advair Diskus] 250-50 mcg/dose Blister With Device 1 puff inhalation BID.RESPIRATORY 30 Days Qty: 60 0RF levofloxacin 500 mg Tablet 500 mg PO DAILY@0600 Qty: 6 0RF linezolid 600 mg tablet 600 mg PO BID 5 Days Qty: 10 0RF Spiriva with HandiHaler 18 mcg capsule, w/inhalation device 1 cap inhalation DAILY Qty: 30 0RF Rx Instructions: puncture 1 cap using device; one dose = 2 inhalations metoprolol succinate 25 mg tablet extended release 24 hr 50 mg PO DAILY Qty: 30 4RF Changed furosemide [Lasix] 20 mg tablet 20 mg PO DAILY Qty: 0 0RF Discharge Orders: Discharge Order (Routine); Ordered 12/09/21 Ordered By: Cornelius Joyce Referrals: Naomy Goodwin FNP [Primary Care Provider] - 7-10 days Datar,Warren Gómez MD [Physician] - 7-10 days (COPD, chronic smoker, recurrent MRSA pneumonias) Discharge Diet: Cardiac Discharge Activity: Resume usual activity Patient Instructions: Opioid Safety Discharge Attestations Time Spent in Discharge Care*: greater than 30 min Specific Discharge Activities: educating patient, discussing with pcp/other providers, discussing with behavioral health case manager/social workers/dc planners, documenting/other paperwork and evaluating patient/reviewing data Time Spent in Smoking Cessation: more than 10 minutes Status at Discharge: Cognitive status at discharge: mildly impaired cognition , Behavioral status at discharge: cooperative , Functional status at discharge: independent ambulation , Overall status at discharge: patient is back to baseline Quality Metrics Clinical Quality Measures [ No reported AMI, CVA or VTE this stay] Coding Level of Care Code Acute Chg FW DC note
[2021-12-09 11:15] LABS: Glucose Point of Care 283 mg/dL (70-110)
[2021-12-09 11:32] VITALS: BP 112/72; PULSE 100; RESP 18; TEMP 36.8; O2SAT 92
[2021-12-09 14:38] VITALS: PULSE 84; RESP 20; O2SAT 89
== END 2021-12-09 15:02 | disposition home or self-care (01) ==
LOC: ER 21:47 → MEDSURG 23:18
PROVIDERS: Admitting Provider Student in an Organized Health Care Education/Training Program; Emergency Provider Emergency Medicine; PCP Nurse Practitioner Family; Visit Provider Student in an Organized Health Care Education/Training Program
DX: J96.21 Acute and chronic respiratory failure with hypoxia (principal); J18.9 Pneumonia, unspecified organism; J44.9 Chronic obstructive pulmonary disease, unspecified; S32.020A Wedge compression fracture of second lumbar vertebra, initial encounter for closed fracture; W19.XXXA Unspecified fall, initial encounter; Z79.891 Long term (current) use of opiate analgesic; Z86.73 Personal history of transient ischemic attack (TIA), and cerebral infarction without residual deficits; Z86.14 Personal history of Methicillin resistant Staphylococcus aureus infection; I25.2 Old myocardial infarction; F41.9 Anxiety disorder, unspecified; Z79.82 Long term (current) use of aspirin; F17.210 Nicotine dependence, cigarettes, uncomplicated; I10 Essential (primary) hypertension; E78.2 Mixed hyperlipidemia; E66.9 Obesity, unspecified; Z68.35 Body mass index [BMI] 35.0-35.9, adult
CPT/HCPCS: 36415; 36416; 70450; 71045; 71275; 80053; 82803; 82962; 83605; 83880; 84145; 84484; 85007; 85025; 85378; 85610; 86140; 87040; 87635; 93005; 94640; 96365; 96367; 96375; 99285; G0378; J0456; J0696; J1940; J2930; J7050; Q9967

== ENCOUNTER → 2021-12-14 17:01 | Outpatient (BNVA) | payer MEDICARE, MEDICAID, SELFPAY | PROVIDERS: PCP Nurse Practitioner Family; Visit Provider Nurse Practitioner Family | DX: M47.817 Spondylosis without myelopathy or radiculopathy, lumbosacral region (principal); J18.9 Pneumonia, unspecified organism; M54.6 Pain in thoracic spine; M54.50 Low back pain, unspecified | CPT/HCPCS: 80053; 85025 ==

== ENCOUNTER 2021-12-24 14:22 | Outpatient (CLI) | payer MEDICARE, MEDICAID, SELFPAY | END 2021-12-24 14:23 | disposition home or self-care (01) | LOC: WOUND 14:23 | PROVIDERS: PCP Nurse Practitioner Family; Visit Provider Nurse Practitioner Family | DX: E11.621 Type 2 diabetes mellitus with foot ulcer (principal); F17.210 Nicotine dependence, cigarettes, uncomplicated; L97.519 Non-pressure chronic ulcer of other part of right foot with unspecified severity; L97.529 Non-pressure chronic ulcer of other part of left foot with unspecified severity | CPT/HCPCS: 99213 ==

== ENCOUNTER → 2021-12-31 11:32 | Outpatient (BNVA) | payer MEDICARE, MEDICAID, SELFPAY | PROVIDERS: PCP Nurse Practitioner Family; Visit Provider Family Medicine | DX: J18.9 Pneumonia, unspecified organism (principal); M54.6 Pain in thoracic spine; M54.50 Low back pain, unspecified; M47.817 Spondylosis without myelopathy or radiculopathy, lumbosacral region | CPT/HCPCS: 80048 ==

== ENCOUNTER → 2022-03-10 14:07 | Outpatient (BNVA) | payer MEDICARE, MEDICAID, SELFPAY | PROVIDERS: PCP Nurse Practitioner Family; Visit Provider Nurse Practitioner Family | DX: I96 Gangrene, not elsewhere classified (principal); L89.312 Pressure ulcer of right buttock, stage 2; L89.892 Pressure ulcer of other site, stage 2; L89.622 Pressure ulcer of left heel, stage 2 | CPT/HCPCS: 99213 ==

== ENCOUNTER → 2022-03-11 00:01 | Outpatient (BNVA) | payer MEDICARE, MEDICAID, SELFPAY | PROVIDERS: PCP Nurse Practitioner Family; Visit Provider Family Medicine | DX: R56.9 Unspecified convulsions (principal); F11.90 Opioid use, unspecified, uncomplicated; M47.817 Spondylosis without myelopathy or radiculopathy, lumbosacral region; M54.6 Pain in thoracic spine | CPT/HCPCS: 80307 ==

== ENCOUNTER → 2022-03-17 10:09 | Outpatient (BNVA) | payer MEDICARE, MEDICAID, SELFPAY | PROVIDERS: PCP Nurse Practitioner Family; Visit Provider Thoracic Surgery (Cardiothoracic Vascular Surgery) | DX: I96 Gangrene, not elsewhere classified (principal); L89.312 Pressure ulcer of right buttock, stage 2; E11.621 Type 2 diabetes mellitus with foot ulcer; L97.511 Non-pressure chronic ulcer of other part of right foot limited to breakdown of skin; L97.512 Non-pressure chronic ulcer of other part of right foot with fat layer exposed; L89.622 Pressure ulcer of left heel, stage 2; L89.892 Pressure ulcer of other site, stage 2 | CPT/HCPCS: 11042; 11045; 97597 ==

== ENCOUNTER → 2022-03-24 14:24 | Outpatient (BNVA) | payer MEDICARE, MEDICAID, SELFPAY | PROVIDERS: PCP Nurse Practitioner Family; Visit Provider Nurse Practitioner Family | DX: I96 Gangrene, not elsewhere classified (principal); L89.312 Pressure ulcer of right buttock, stage 2; E11.621 Type 2 diabetes mellitus with foot ulcer; L97.511 Non-pressure chronic ulcer of other part of right foot limited to breakdown of skin; L97.512 Non-pressure chronic ulcer of other part of right foot with fat layer exposed; L89.622 Pressure ulcer of left heel, stage 2; L89.892 Pressure ulcer of other site, stage 2 | CPT/HCPCS: 11042; 11045; 87070; 87077; 87176; 87186; 87205 ==

== ENCOUNTER → 2022-03-31 10:10 | Outpatient (BNVA) | payer MEDICARE, MEDICAID, SELFPAY | PROVIDERS: PCP Nurse Practitioner Family; Visit Provider Nurse Practitioner Family | DX: I96 Gangrene, not elsewhere classified (principal); L89.312 Pressure ulcer of right buttock, stage 2; L89.891 Pressure ulcer of other site, stage 1; L89.892 Pressure ulcer of other site, stage 2; L89.622 Pressure ulcer of left heel, stage 2 | CPT/HCPCS: 11042 ==

== ENCOUNTER → 2022-04-07 13:12 | Outpatient (BNVA) | payer MEDICARE, MEDICAID, SELFPAY | PROVIDERS: PCP Nurse Practitioner Family; Visit Provider Nurse Practitioner Family | DX: I96 Gangrene, not elsewhere classified (principal); L89.312 Pressure ulcer of right buttock, stage 2; E11.621 Type 2 diabetes mellitus with foot ulcer; L97.511 Non-pressure chronic ulcer of other part of right foot limited to breakdown of skin; L97.512 Non-pressure chronic ulcer of other part of right foot with fat layer exposed; L97.522 Non-pressure chronic ulcer of other part of left foot with fat layer exposed; L89.892 Pressure ulcer of other site, stage 2 | CPT/HCPCS: 11042 ==

== ENCOUNTER → 2022-04-14 12:58 | Outpatient (BNVA) | payer MEDICARE, MEDICAID, SELFPAY | PROVIDERS: PCP Nurse Practitioner Family; Visit Provider Thoracic Surgery (Cardiothoracic Vascular Surgery) | DX: Z09 Encounter for follow-up examination after completed treatment for conditions other than malignant neoplasm (principal); L89.312 Pressure ulcer of right buttock, stage 2; L89.891 Pressure ulcer of other site, stage 1; L97.522 Non-pressure chronic ulcer of other part of left foot with fat layer exposed; L89.622 Pressure ulcer of left heel, stage 2; L89.892 Pressure ulcer of other site, stage 2 | CPT/HCPCS: 11042; 97597 ==

== ENCOUNTER → 2022-05-03 08:28 | Outpatient (BNVA) | payer MEDICARE, MEDICAID, SELFPAY | PROVIDERS: PCP Nurse Practitioner Family; Visit Provider Thoracic Surgery (Cardiothoracic Vascular Surgery) | DX: E11.621 Type 2 diabetes mellitus with foot ulcer; L97.511 Non-pressure chronic ulcer of other part of right foot limited to breakdown of skin; L97.522 Non-pressure chronic ulcer of other part of left foot with fat layer exposed; I11.0 Hypertensive heart disease with heart failure; I10 Essential (primary) hypertension; I50.30 Unspecified diastolic (congestive) heart failure; F17.210 Nicotine dependence, cigarettes, uncomplicated | CPT/HCPCS: 97597; 99214; A6212 ==

== ENCOUNTER → 2022-05-10 09:44 | Outpatient (BNVA) | payer MEDICARE, MEDICAID, SELFPAY | PROVIDERS: PCP Nurse Practitioner Family; Visit Provider Thoracic Surgery (Cardiothoracic Vascular Surgery) | DX: E11.621 Type 2 diabetes mellitus with foot ulcer (principal); L89.891 Pressure ulcer of other site, stage 1; I96 Gangrene, not elsewhere classified | CPT/HCPCS: 97597; A6212; A6251 ==

== ENCOUNTER 2022-05-17 13:56 | Inpatient (IN) | payer MEDICARE, MEDICAID, SELFPAY ==
[2022-05-17] VITALS (8 sets, daily range): BP systolic 94–152; BP diastolic 62–85; PULSE 86–96; RESP 16–22; TEMP 36.6–36.7; O2SAT 88–92
--- NOTE | 2022-05-17 14:20 | PC.NURSE ---
PT PLACED ON 2 L OF OXYGEN VIA NC.
--- NOTE | 2022-05-17 15:37 | W.ED.GENADLT ---
HPI - General Adult General: Chief complaint: Seizure Stated complaint: possible seizures Time Seen by Provider: 05/17/22 15:35 History of Present Illness: Patient is a 56-year-old female with history of seizures, baseline R sided deficit from prior CVA currently on Keppra 500 mg twice daily presenting to emergency room for multiple breakthrough seizure in the last 4 days. Patient has been having a chronic cough for last 2 weeks. Patient's reports that she is compliant on her Keppra 500 mg twice daily. For the last few days, she went to [facility], she has had breakthrough seizures. She denies any fall or injury. Family witnessed these episodes of seizure. Patient has no complaints of chest pain, shortness breath, palpitation, nausea/vomiting, diarrhea melena hematochezia. No complaints Onset: 4 days ago Duration:4 days Location:home Severity:moderate Associated symptoms: Deny chest pain, dyspnea, nausea, rash, palpitations or vomiting Review of Systems Const: Denies: fever(s) or chills Eyes: Denies: change in vision ENMT: Denies: mouth pain Card: Denies: chest pain or palpitations Resp: Reports: non-productive cough; Denies: dyspnea GI: Denies: abdominal pain, nausea, vomiting or diarrhea : Denies: dysuria Musc: Denies: extremity pain Skin/Breast: Denies: rash or new lesions Neuro: Reports: other (+breakthrough seiuzres); Denies: weakness in extremities Psych: Reports: other (Normal mood) Xavier/Lymph: Denies: easy bruising PFS ED PFSH: Medical History (HFpEF) heart failure with preserved ejection fraction Abnormal stress test Acute and chronic respiratory failure with hypoxia Acute exacerbation of CHF (congestive heart failure) Acute hypoxemic respiratory failure Acute kidney injury Anemia CAD (coronary artery disease) Candidiasis of vagina Carpal tunnel syndrome, right Chest pain Chest pain, midsternal Chronic knee pain Chronic left-sided low back pain Chronic obstructive pulmonary disease, unspecified Chronic pain of left knee Compression fracture of L2 lumbar vertebra COPD (chronic obstructive pulmonary disease) COPD exacerbation Coronary artery disease due to type 2 diabetes mellitus Current every day smoker CVA (cerebral vascular accident) Dehydration Demand ischemia Diabetes type 2, uncontrolled Diabetic foot ulcer Dyslipidemia Dyspnea Elevated troponin Encounter for long-term opiate analgesic use Essential hypertension Exposure to COVID-19 virus Fall Fall Fibromyalgia, primary History of CVA (cerebrovascular accident) History of hypoglycemic coma Hoarseness of voice Hyperlipidemia, mixed Insomnia Intervertebral disc disorder of lumbar region with myelopathy Leukocytosis Low back pain radiating to both legs Lumbosacral spondylosis without myelopathy Needs flu shot Neuropathy NSTEMI (non-ST elevated myocardial infarction) Thought to be secondary to plaque rupture. Angiogram July 04 no flow-limiting lesions, or restenosis of previous stent from April 2020 Numbness and tingling in both hands Obesity (BMI 35.0-39.9 without comorbidity) Opioid contract exists Osteoarthritis of left knee Osteoarthritis of spine at multiple levels Pericardial effusion Peripheral sensory neuropathy due to type 2 diabetes mellitus Pneumonia Pressure ulcer Prosthetic joint infection Right arm weakness Right hip pain Sepsis Septic arthritis of knee, left Stenosis of left internal carotid artery with cerebral infarction Syncope Type 2 diabetes mellitus with diabetic autonomic (poly)neuropathy Unstable angina Urinary incontinence Urinary tract infection Vitamin D deficiency Surgical History History of arthroscopic surgery of elbow BILATERAL History of coronary angiogram Angiogram April 2020 with 90% circumflex lesion, drug-eluting stent placed by Dr. Jerome S/p bilateral carpal tunnel release S/P hysterectomy S/P knee surgery RIGHT S/P lumbar fusion DR. Shreya ZAYAS IN [place], [place] L4-L5, L5-S1 Status post left knee replacement Status post lumbar laminectomy Family History Other CAD (coronary artery disease) Cancer Diabetes Social History Smoking and tobacco status: current every day smoker cigarettes Packs smoked per day: 0.5 [ Other cigarette details: PER PATIENT REPORT] Smoking risk assessment/counseling performed?: Yes Alcohol intake: former Desire information about alcohol rehabilitation?: No Counseling given: No Desire information about substance/drug rehabilitation?: No Counseling given: No Caregiver/support person: No Lives independently: Yes Household members: family and other Details: son Housing: Manufactured/Mobile home Marital status: Unknown Marital status details: She and son state she is not service: No Current occupational status: unemployed Pets and animals: Yes History of recent travel: No Current gender identity: Female Physical Exam Const: COMMON NORMALS: alert HENMT: COMMON NORMALS: atraumatic HEAD & SCALP: atraumatic MOUTH: moist mucous membranes not abnormal Eye: COMMON NORMALS: EOMs intact bilaterally and conjunctivae normal CONJUNCTIVA: Yes conjunctivae normal Neck/C-Spine: COMMON NORMALS: full ROM and supple Resp: COMMON NORMALS: normal respiratory effort OTHER: +coarse breath sounds b/l Cardio: COMMON NORMALS: regular rate RATE: regular rate GI: COMMON NORMALS: Soft to palpation and non-tender PALPATION: Yes Soft to palpation OTHER: No focal TTP. NO guarding rebound, guarding, rigidity. No CVA tenderness to percussion. Neg Dowd/Neg McBurney's point tenderness, no suprabupic tenderness to palpation. Extremity: COMMON NORMALS: full ROM Neuro: SENSORIUM/ORIENTATION: Yes alert MOTOR EXAM: No Abnormal motor strength present and Other motor observations present (no focal motor deficits) Psych: COMMON NORMALS: speech normal SPEECH: Yes normal speech MOOD & AFFECT: Yes euthymic mood Course Vital Signs: Vital signs: Vital Signs Temperature 98.0 F 05/17/22 14:11 Pulse Rate 86 05/17/22 18:00 Respiratory Rate 22 H 05/17/22 18:00 Blood Pressure 112/75 05/17/22 18:00 Pulse Oximetry 91 05/17/22 18:00 Oxygen Delivery Me thod 05/17/22 18:00 Oxygen Flow Rate 4 05/17/22 18:00 [facility] - General Adult Medical Decision Making Patient is a 56-year-old female with residual right-sided weakness from prior CVA, cough for 2 weeks presenting to the emergency room with breakthrough seizure in the last 4 days. On arrival, patient is afebrile with coarse breath sounds bilaterally. Patient is noted to be satting at 85 to 87% on room air. Patient required 4 L oxygen to improve to greater than 93%. Patient is noted demonstration of increased work of breathing or respiratory distress. Lab work-up showed white count 17.4. Hemoglobin 9.7 similar to baseline. X-ray chest showed diffuse patchy infiltrates consistent with atypical pneumonia. COVID swab is negative. UA showed possible UTI. CT head negative for any acute finding. Patient received 1 g Keppra in the emergency room. Patient has not demonstrated any additional seizure activity. Given pneumonia finding, UTI, increased oxygen requirement, patient will be admitted to the hospital for pneumonia which could explain her new seizures. Disposition: admission Lab Data : 05/17/22 16:35 05/17/22 16:35 Radiology Impressions Chest X-Ray 05/17/22 18:01 IMPRESSION: Patchy ground-glass opacities throughout the lungs, correlate for atypical pneumonia. Laboratory Results WBC 17.4 10^3/uL (4.0-10.0) H 05/17/22 16:35 RBC 4.53 10^6/uL (4.1-5.3) 05/17/22 16:35 Hgb 9.7 g/dL (11.5-15.3) L 05/17/22 16:35 Hct 32.2 % (37.0-47.0) L 05/17/22 16:35 MCV 71.1 fl (81-99) L 05/17/22 16:35 MCH 21.4 pg (28.0-34.0) L 05/17/22 16:35 MCHC 30.1 g/dL (30.0-36.0) 05/17/22 16:35 RDW 19.3 % (12.1-15.1) H 05/17/22 16:35 Plt Count 525 10^3/cmm (130-400) H 05/17/22 16:35 MPV 9.9 fL (7.4-10.4) 05/17/22 16:35 Neut % (Auto) 63.1 % 05/17/22 16:35 Lymph % (Auto) 20.9 % 05/17/22 16:35 [place] % (Auto) 7.5 % 05/17/22 16:35 Eos % (Auto) 6.5 % 05/17/22 16:35 Baso % (Auto) 0.6 % 05/17/22 16:35 Neut # (Auto) 10.98 10^3/uL (1.8-7.7) H 05/17/22 16:35 Lymph # (Auto) 3.6 10^3/uL (0.8-4.8) 05/17/22 16:35 [place] # (Auto) 1.3 10^3/uL (0.2-0.9) H 05/17/22 16:35 Eos # (Auto) 1.1 10^3/uL (0.0-0.8) H 05/17/22 16:35 Baso # (Auto) 0.1 10^3/uL (0.0-0.1) 05/17/22 16:35 Nucleated RBC % (auto) 0 % 05/17/22 16:35 Nucleated RBCs # 0.0 /100WBC 05/17/22 16:35 D-Dimer 1.56 ug/mIFEU (0-0.59) H 05/17/22 16:35 Sodium 130 mmol/L (136-145) L 05/17/22 16:35 Potassium 4.4 mmol/L (3.5-5.1) 05/17/22 16:35 Chloride 92 mmol/L (98-107) L 05/17/22 16:35 Carbon Dioxide 25 mmol/L (22-29) 05/17/22 16:35 Anion Gap 17.4 (5-19) 05/17/22 16:35 BUN 13 mg/dL (6-20) 05/17/22 16:35 Creatinine 0.8 mg/dL (0.5-0.9) 05/17/22 16:35 GFR Calculation 74.7 mL/min (90-130) L 05/17/22 16:35 Glucose 490 mg/dL (65-115) H 05/17/22 16:35 Calculated Osmolality 292 mOsm/kg (285-295) 05/17/22 16:35 Calcium 8.9 mg/dL (8.5-10.5) 05/17/22 16:35 Total Bilirubin 0.2 mg/dL (0.15-1.2) 05/17/22 16:35 AST 12 U/L (0-32) 05/17/22 16:35 ALT 10 U/L (0-33) 05/17/22 16:35 Alkaline Phosphatase 145 IU/L (35-105) H 05/17/22 16:35 NT-Pro-B Natriuret Pep 147 pg/mL (0-125) H 05/17/22 16:35 Total Protein 6.5 g/dL (6.6-8.7) L 05/17/22 16:35 Albumin 3.0 g/dL (3.5-5.2) L 05/17/22 16:35 Globulin 3.5 g/dL (1.3-4.6) 05/17/22 16:35 Lipase 17 U/L (13-60) 05/17/22 16:35 Urine Color Yellow (Yellow) 05/17/22 16:47 Urine Appearance Sl hazy (CLEAR) 05/17/22 16:47 Urine pH 5 (5-7) 05/17/22 16:47 Ur Specific [place] 1.010 (1.005-1.030) 05/17/22 16:47 Urine Protein Neg (Negative) 05/17/22 16:47 Urine Glucose (UA) 4+ (Normal) H 05/17/22 16:47 Urine Ketones Negative (Negative) 05/17/22 16:47 Urine Blood Neg (Negative) 05/17/22 16:47 Urine Nitrate Positive (Negative) H 05/17/22 16:47 Urine Bilirubin Neg (Negative) 05/17/22 16:47 Urine Urobilinogen Norm mg/dL (Negative) 05/17/22 16:47 Ur Leukocyte Esterase Negative (Negative) 05/17/22 16:47 Urine RBC None /hpf (0-2) 05/17/22 16:47 Urine WBC 25-40 /hpf (0-5) H 05/17/22 16:47 Ur Squamous Epith Cells Rare /hpf (0-5) 05/17/22 16:47 Amorphous Sediment Not Reportable 05/17/22 16:47 Urine Bacteria 3+ /hpf (NONE) H 05/17/22 16:47 Urine Mucus Trace /hpf 05/17/22 16:47 SARS-CoV-2 Ag (Rapid) Negative (Negative) 05/17/22 18:35 Imaging Data Other Imaging: Radiologist's impression: [address] [address] XRay Report Signed Patient: Mayra Ascencio Unit #: [id number] : 1965 Age/Sex: 56 / F ADM Date: 05/17/22 Loc: ER Room/Bed: Attending Dr: Ordering Provider/Ordering MD: Duran Boyd MD Date of Service: 05/17/22 Procedure(s): XR chest 1V portable [id number] Accession Number(s): [id number] Report Number: [id number] PROCEDURE INFORMATION: Exam: XR Chest Exam date and time: 05/17/2022 6:19 PM Age: 56 years old Clinical indication: Dyspnea TECHNIQUE: Imaging protocol: Radiologic exam of the chest. Views: 1 view. COMPARISON: CR (CHEST, ) 12/08/2021 7:13 PM FINDINGS: Lungs: Patchy ground-glass opacities throughout both lungs. Pleural spaces: Unremarkable. No pleural effusion. No pneumothorax. Heart/Mediastinum: Cardiac silhouette mildly enlarged. Bones/joints: Unremarkable. XR/XR chest 1V portable [id number] IMPRESSION: Patchy ground-glass opacities throughout the lungs, correlate for atypical pneumonia. ? Dictated By: Adrian Turcios MD Signed By: Adrian Turcios MD Signed Date/Time: 05/17/221921 DD/ 18 Discharge Plan Discharge Patient Disposition: Admitted As Inpatient Clinical Impression: Pneumonia, UTI (urinary tract infection), Seizure, Hypoxemia Condition: Stable Coding Level of Care Code ED Youth Liaison Officer for Chg Fwd Exam Comprehensive
--- NOTE | 2022-05-17 16:15 | ECG_ITS ---
[facility] Test Date: 2022-05-17 Pat Name: Mayra Ascencio Department: Room: Gender: Female Ticket Scheduler: : 1965 Requested By: Duran Boyd Order Number: [id number] Ashlee MD: Karl Puga M.D. Measurements Intervals [place] Rate: 92 P: 16 DE: 196 QRS: -4 QRSD: 103 T: 66 QT: 378 QTc: 468 Interpretive Statements SINUS RHYTHM NONSPECIFIC ST & T-WAVE ABNORMALITY Compared to ECG 12/09/2021 01:35:54 Sinus tachycardia no longer present T-wave abnormality still present Electronically Signed On 05-18-2022 7:10:01 CDT by Karl Puga M.D. [email or web address]
[2022-05-17] MEDS: sodium chloride 0.9% 1,000 ML 999 ML IV (16:43)
[2022-05-17 17:27] LABS: Basophils # 0.1 10^3/uL (0.0-0.1); Basophils % 0.6 %; Eosinophils # 1.1 10^3/uL (0.0-0.8); Eosinophils % 6.5 %; Hematocrit 32.2 % (37.0-47.0); Hemoglobin 9.7 g/dL (11.5-15.3); Lymphocytes # 3.6 10^3/uL (0.8-4.8); Lymphocytes % 20.9 %; Mean Corpuscular HGB Conc 30.1 g/dL (30.0-36.0); Mean Corpuscular Hemoglobin 21.4 pg (28.0-34.0); Mean Corpuscular Volume 71.1 fl (81-99); Mean Platelet Volume 9.9 fL (7.4-10.4); Monocytes # 1.3 10^3/uL (0.2-0.9); Monocytes % 7.5 %; Neutrophils # 10.98 10^3/uL (1.8-7.7); Neutrophils % 63.1 %; Nucleated Red Blood Cells % 0 %; Platelet Count 525 10^3/cmm (130-400); Red Blood Count 4.53 10^6/uL (4.1-5.3); Red Cell Distribution Width 19.3 % (12.1-15.1); White Blood Count 17.4 10^3/uL (4.0-10.0)
[2022-05-17 17:57] LABS: Add Urine Microscopic? YES; Bilirubin Urine Neg (Negative); Blood Urine Neg (Negative); Glucose Urine UA 4+ (Normal); Ketones Urine Negative (Negative); Leukocyte Esterase Urine Negative (Negative); Nitrate Urine Positive (Negative); Protein Urine Neg (Negative); Urine Appearance SL Hazy (CLEAR); Urine Color Yellow (Yellow); Urobilinogen Urine Norm (Negative); pH Urine 5 (5-7)
[2022-05-17 17:58] LABS: Add Urine Culture? Yes; Bacteria Urine 3+ /hpf; Mucus Urine TRACE /hpf; Squamous Epithelial Cell Urine RARE /hpf (0-5); WBC Urine 25-40 /hpf (0-5)
--- NOTE | 2022-05-17 18:01 | XRR_ITS ---
PROCEDURE INFORMATION: Exam: XR Chest Exam date and time: 05/17/2022 6:19 PM Age: 56 years old Clinical indication: Dyspnea TECHNIQUE: Imaging protocol: Radiologic exam of the chest. Views: 1 view. COMPARISON: CR (CHEST, ) 12/08/2021 7:13 PM FINDINGS: Lungs: Patchy ground-glass opacities throughout both lungs. Pleural spaces: Unremarkable. No pleural effusion. No pneumothorax. Heart/Mediastinum: Cardiac silhouette mildly enlarged. Bones/joints: Unremarkable. XR/XR chest 1V portable [id number] IMPRESSION: Patchy ground-glass opacities throughout the lungs, correlate for atypical pneumonia.
[2022-05-17 18:06] LABS: Alanine Aminotransferase 10 U/L (0-33); Alkaline Phosphatase 145 IU/L (35-105); Anion Gap 17.4 (5-19); Aspartate Amino Transferase 12 U/L (0-32); Blood Urea Nitrogen 13 mg/dL (6-20); Calcium 8.9 mg/dL (8.5-10.5); Carbon Dioxide 25 mmol/L (22-29); Chloride 92 mmol/L (98-107); Globulin 3.5 g/dL (1.3-4.6); Glomerular Filtration Rate 74.7 mL/min (90-130); Glucose 490 mg/dL (65-115); Lipase 17 U/L (13-60); Osmolality Calculated 292 mOsm/kg (285-295); Potassium 4.4 mmol/L (3.5-5.1); Sodium 130 mmol/L (136-145); Total Bilirubin 0.2 mg/dL (0.15-1.2); Total Protein 6.5 g/dL (6.6-8.7)
[2022-05-17] MEDS: cefTRIAXone 1,000 MG in sodium chloride 0.9% (plus) 50 ML 100 MG IV (18:32)
[2022-05-17 19:09] LABS: D Dimer 1.56 ug/mIFEU (0-0.59)
[2022-05-17 19:28] LABS: NT Pro B Type Natriuretic Pept 147 pg/mL (0-125)
[2022-05-17 20:08] LABS: SARS Covid-2 Antigen Negative (Negative)
--- NOTE | 2022-05-17 20:09 | PC.NURSE ---
1899: Report from IRAM Jarquin. Pt sitting up in bed. Requests something to eat. notified. Food given. No further needs at this time.
[2022-05-17] MEDS: azithromycin 500 MG in sodium chloride 0.9% 250 ML 250 MG IV (20:11)
[2022-05-17 21:58] LABS: Procalcitonin 0.11 ng/mL (0-0.5); Thyroid Stimulating Hormone 1.15 uIU/mL (0.27-4.20)
[2022-05-17 22:19] LABS: Lactic Sepsis W/Reflex 1.6 mmol/L (0.5-2.2)
--- NOTE | 2022-05-17 22:30 | PM.HP ---
Providers/Chief Complaint Admitting Physician: Deanne Delgadillo MD Chief Complaint: possible seizures History of Present Illness Mayra Ascencio is a 56 year old female with history of seizures, baseline right-sided deficits from prior CVA, COPD, CHF, CAD, dyslipidemia, fibromyalgia, NSTEMI, obesity, type 2 diabetes mellitus complicated by peripheral neuropathy, septic arthritis of left knee, hypertension Presented to the hospital today for complaint of shortness of breath at home. She says she has been having a cough for about a week and has been expectorating yellow phlegm. She is on 2 L nasal cannula at baseline at home. She states she lives with her sister. Has had no ill contacts in the recent past. She does have a history of seizures and follows with a neurologist in [place]. However at this point she wants to follow-up with Dr. Valle here in [facility]. She is on Keppra primary twice daily at home, but she cannot tell me. She also states that she has a sore on her left foot. She states she has fibromyalgia and is on pain medication at home which she wants us to order here as an inpatient. Denies any chest pain at this time, shortness of breath, nausea, vomiting, diarrhea, constipation. Denies dysuria, pelvic pain or any other issues related to urination. She is a smoker smokes about half pack per day. Denies alcohol use at this time. She states she quit long time ago. Of note it was reported in the ER that for the last few days she has had breakthrough seizures. Denies any fall or injury. Family witnessed episodes of the seizures. Patient did confirm she had seizures but was unable to tell me any other details. There is no family present here at this time. ED course: Blood pressure 112/75, pulse ox 91% on 4 L, respiratory rate 22, pulse 86, temperature 98. Patient was noted to be desaturating down to 84% on room air and therefore was placed on 4 L nasal cannula. Saturation improved to 95% on 4 L. She did have some increased work of breathing and respiratory distress. WBC 17.4. Chest x-ray showed diffuse patchy infiltrates consistent with atypical pneumonia. COVID swab negative. Urinalysis abnormal. CT head negative. She was given Keppra 1000 mg in ER. She did not have any seizure activity. Medications/Allergies Home Medications Medication Instructions Recorded Confirmed Last Taken Type acetaminophen 325 mg tablet 650 mg PO Q6H PRN Mild/Mod Pain Or 10/16/20 05/17/22 04/21/21 Rx Temp >/= 101 #30 tabs COCK UP SPLINT #2 ea 08/26/21 05/17/22 Unknown Rx evolocumab 140 mg/mL subcutaneous 140 mg SUBCUT .[id number] #2 mL 03/05/22 05/17/22 Unknown Rx pen injector (Repatha SureClick) insulin detemir U-100 100 unit/mL 10 unit (0.1 mL) SUBCUT QAM #15 mL 03/05/22 05/17/22 05/17/22 Rx (3 mL) subcutaneous pen (Levemir FlexTouch U-100 Insulin) insulin lispro 100 unit/mL See Rx Instructions .Route 03/05/22 05/17/22 05/16/22 Rx subcutaneous pen (Humalog KwikPen .COMPLEX #15 mL (U-100) Insulin) losartan 50 mg tablet 50 mg PO DAILY@0800 #180 tabs 03/05/22 05/17/22 05/17/22 07:00 Rx pen needle, diabetic 31 gauge x #100 ea 03/05/22 05/17/22 Unknown Rx 5/16 (Comfort EZ Pen [place]) pen needle, diabetic 32 gauge x #100 ea 03/05/22 05/17/22 Unknown Rx 5/32 (Comfort EZ Pen [place]) ticagrelor 90 mg tablet (Brilinta) 90 mg PO BID@ #180 tabs 03/05/22 05/17/22 05/17/22 07:00 Rx tiotropium bromide 18 mcg capsule 1 cap inhalation DAILY #30 03/05/22 05/17/22 05/17/22 07:00 Rx with inhalation device (Spiriva inhalations with HandiHaler) naloxone 4 mg/actuation nasal spray 4 mg intranasal Q2M PRN opioid 03/11/22 05/17/22 Unknown Rx overdose #2 ea cyclobenzaprine 10 mg tablet 10 mg PO TID PRN muscle spasm 30 04/30/22 05/17/22 Unknown Rx days #90 tabs pregabalin 150 mg capsule (Lyrica) 150 mg PO BID #60 caps 04/30/22 05/17/22 05/17/22 07:00 Rx hydromorphone 2 mg tablet 2 mg PO Q8H 30 days #90 tabs 05/03/22 05/17/22 05/17/22 07:00 Rx 2 TABS albuterol sulfate 2.5 mg inhalation Q4H PRN 05/17/22 05/17/22 Unknown History Shortness Of Breath albuterol sulfate 90 mcg/actuation 1 puff inhalation Q6H PRN 05/17/22 05/17/22 Unknown History aerosol inhaler Shortness Of Breath aspirin 81 mg tablet,delayed 81 mg PO QAM 05/17/22 05/17/22 05/17/22 07:00 History release (Adult Aspirin Regimen) atorvastatin 80 mg tablet 80 mg PO QAM 05/17/22 05/17/22 05/17/22 07:00 History duloxetine 60 mg capsule,delayed 60 mg PO QAM 05/17/22 05/17/22 05/17/22 07:00 History release furosemide 40 mg tablet 40 mg PO DAILY PRN Edema 05/17/22 05/17/22 Unknown History isosorbide mononitrate 60 mg 60 mg PO QAM 05/17/22 05/17/22 05/17/22 History tablet,extended release 24 hr levetiracetam 500 mg tablet 500 mg PO BID 05/17/22 05/17/22 05/17/22 07:00 History levofloxacin 750 mg tablet 750 mg PO DAILY #5 tabs 05/17/22 05/17/22 Unknown Rx metoprolol succinate 25 mg 25 mg PO QAM 05/17/22 05/17/22 05/17/22 History tablet,extended release 24 hr nitroglycerin 0.4 mg sublingual 0.4 mg sublingual Q5M PRN Chest 05/17/22 05/17/22 Unknown History tablet (Nitrostat) Pain oxybutynin chloride 5 mg 5 mg PO QAM 05/17/22 05/17/22 05/17/22 History tablet,extended release 24 hr pantoprazole 40 mg tablet,delayed 40 mg PO QAM 05/17/22 05/17/22 05/17/22 History release quetiapine 200 mg tablet 200 mg PO BEDTIME 05/17/22 05/17/22 05/16/22 History semaglutide 3 mg tablet (Rybelsus) 3 mg PO QAM 05/17/22 05/17/22 05/17/22 07:00 History Allergies Allergy/AdvReac Type Severity Reaction Status Date / Time fentanyl Allergy Unknown ALGY-Difficulty Verified 05/17/22 16:25 Breathing adhesive Allergy Unknown Verified 05/17/22 16:25 clindamycin Allergy ADR-Itching Verified 05/17/22 16:25 codeine Allergy Unknown Verified 05/17/22 16:25 hydrocodone Allergy Unknown Verified 05/17/22 16:25 latex Allergy ALGY-Swell Verified 05/17/22 16:25 Lip/Tongue/Throat naproxen [From Naprosyn] Allergy Unknown Verified 05/17/22 16:25 nut - unspecified Allergy ALGY-Anaphy Verified 05/17/22 16:25 laxis oxycodone [From Roxicodone] Allergy ADR-Muscle Verified 05/17/22 16:25 Pain Penicillins Allergy Unknown Verified 05/17/22 16:25 sulfamethoxazole Allergy ADR-Migrain Verified 05/17/22 16:25 [From Bactrim] e trimethoprim [From Bactrim] Allergy ADR-Migrain Verified 05/17/22 16:25 e PFSH Acute PFSH: Medical History (HFpEF) heart failure with preserved ejection fraction Abnormal stress test Acute and chronic respiratory failure with hypoxia Acute exacerbation of CHF (congestive heart failure) Acute hypoxemic respiratory failure Acute kidney injury Anemia CAD (coronary artery disease) Candidiasis of vagina Carpal tunnel syndrome, right Chest pain Chest pain, midsternal Chronic knee pain Chronic left-sided low back pain Chronic obstructive pulmonary disease, unspecified Chronic pain of left knee Compression fracture of L2 lumbar vertebra COPD (chronic obstructive pulmonary disease) COPD exacerbation Coronary artery disease due to type 2 diabetes mellitus Current every day smoker CVA (cerebral vascular accident) Dehydration Demand ischemia Diabetes type 2, uncontrolled Diabetic foot ulcer Dyslipidemia Dyspnea Elevated troponin Encounter for long-term opiate analgesic use Essential hypertension Exposure to COVID-19 virus Fall Fall Fibromyalgia, primary History of CVA (cerebrovascular accident) History of hypoglycemic coma Hoarseness of voice Hyperlipidemia, mixed Insomnia Intervertebral disc disorder of lumbar region with myelopathy Leukocytosis Low back pain radiating to both legs Lumbosacral spondylosis without myelopathy Needs flu shot Neuropathy NSTEMI (non-ST elevated myocardial infarction) Thought to be secondary to plaque rupture. Angiogram July 04 no flow-limiting lesions, or restenosis of previous stent from April 2020 Numbness and tingling in both hands Obesity (BMI 35.0-39.9 without comorbidity) Opioid contract exists Osteoarthritis of left knee Osteoarthritis of spine at multiple levels Pericardial effusion Peripheral sensory neuropathy due to type 2 diabetes mellitus Pneumonia Pressure ulcer Prosthetic joint infection Right arm weakness Right hip pain Sepsis Septic arthritis of knee, left Stenosis of left internal carotid artery with cerebral infarction Syncope Type 2 diabetes mellitus with diabetic autonomic (poly)neuropathy Unstable angina Urinary incontinence Urinary tract infection Vitamin D deficiency Surgical History History of arthroscopic surgery of elbow BILATERAL History of coronary angiogram Angiogram April 2020 with 90% circumflex lesion, drug-eluting stent placed by Dr. Jerome S/p bilateral carpal tunnel release S/P hysterectomy S/P knee surgery RIGHT S/P lumbar fusion DR. Shreya ZAYAS IN [place], [place] L4-L5, L5-S1 Status post left knee replacement Status post lumbar laminectomy Family History Other CAD (coronary artery disease) Cancer Diabetes Social History Smoking and tobacco status: current every day smoker cigarettes Packs smoked per day: 0.5 [ Other cigarette details: PER PATIENT REPORT] Smoking risk assessment/counseling performed?: Yes Alcohol intake: former Desire information about alcohol rehabilitation?: No Counseling given: No Desire information about substance/drug rehabilitation?: No Counseling given: No Caregiver/support person: No Lives independently: Yes Household members: family and other Details: son Housing: Manufactured/Mobile home Marital status: Unknown Marital status details: She and son state she is not service: No Current occupational status: unemployed Pets and animals: Yes History of recent travel: No Current gender identity: Female Vitals/I&O/Wt Last Vital Signs Temp 98.0 F 05/17/22 14:11 Pulse 91 05/17/22 21:13 Resp 16 05/17/22 21:13 BP 105/70 05/17/22 21:13 Pulse Ox 92 05/17/22 21:13 O2 Del Method 05/17/22 21:13 O2 Flow Rate 5 05/17/22 21:13 05/17/22 05/17/22 05/17/22 06:59 14:59 22:59 Intake Total 1410 / 1410 Balance 1410 / 1410 Weight last 48 hrs Weight 90.718 kg Physical Exam Narrative: General: Alert oriented x3, patient seen laying in bed appearing comfortable at this time on 4 L nasal cannula. HEENT: Normocephalic, atraumatic, EOMI, breathing normally and in no acute respiratory distress at this time. Cardio: Regular rate rhythm, normal S1-S2, no gross murmurs abdomen on exam Respiratory: Bilateral rhonchi at bases, mild wheezing throughout lung yo, no crackles, fair bilateral air entry. GI: Abdomen soft, nontender, nondistended, bowel sounds + Extremities: 1+ bilateral generalized edema lower extremities Data : 05/17/22 16:35 05/17/22 16:35 Micro: Microbiology 05/17/22 21:59 Blood Culture - Preliminary Blood SPECIMEN COLLECTED 05/17/22 21:50 Blood Culture - Preliminary Blood SPECIMEN COLLECTED A&P Assessment and plan (1) Pneumonia: Status: Acute (2) UTI (urinary tract infection): Status: Acute (3) Essential hypertension: Status: Acute (4) (HFpEF) heart failure with preserved ejection fraction: Status: Acute (5) Seizures: Status: Acute (6) Diabetes type 2, uncontrolled: Status: Acute Qualifiers: Glycemic state: with hyperglycemia Qualified Code(s): E11.65 - Type 2 diabetes mellitus with hyperglycemia (7) COPD (chronic obstructive pulmonary disease): Status: Acute (8) Pressure ulcer: Status: Acute Qualifiers: Pressure injury location: sacral region Pressure injury stage: unspecified pressure injury stage Qualified Code(s): L89.159 - Pressure ulcer of sacral region, unspecified stage Plan #Atypical pneumonia #COPD #Possible UTI #History of seizures with breakthrough seizure recently #Uncontrolled Type 2 diabetes mellitus placated by peripheral neuropathy #Chronic congestive heart failure, diastolic #Dyslipidemia, hypertension #History of CAD, NSTEMI #Thrombocytosis possibly 2/2 to infection #Chronic anemia #Hyponatremia ? Continue on ceftriaxone and azithromycin ? Check bacterial antigens ? DuoNeb every 6hours as needed ?Check procalcitonin, urine culture, blood cultures, sputum culture, check COVID, lactic acid ? Does not seem to be in COPD exacerbation at this time. We will hold off on steroids -Urinalysis is abnormal. Urine culture has been ordered. Patient is asymptomatic. However she is on ceftriaxone for pneumonia which will cover UTI as well. ? Lasix 40 IV x1 ? Loaded with Keppra 1 g in ER. Seizure-free for now. Continue on Keppra 500 twice daily home medication ? Ativan as needed if another seizure occurs. Will manage accordingly at that time. ? Continue aspirin, atorvastatin, Cymbalta, Imdur, Toprol, losartan ? Continue supplemental oxygen ? HBA1c: 14.1. Glucose 490 at admission. Mod intensity Insulin sliding scale for diabetes, Increase Lantus 15 in a.m. Unsure if compliant with medications. ? Consistent carbohydrate diet, cardiac - Most likely iron def anemia. Check iron studies. Consider IV iron - Check urine sodium, serum, urine osm. Sodium 130. Continue to monitor. Seems to be chronic. Full code Heparin subcu Attestations Medical Necessity Statement*: Will cross greater than 2 midnight stay for management of atypical pneumonia, increasing oxygen requirement and breakthrough seizures. Coding Level of Care Code Acute Pound Keeper for g Fwd Diagnoses Pneumonia J18.9 UTI (urinary tract infection) N39.0 Essential hypertension I10 (HFpEF) heart failure with preserved ejection fraction I50.30 Seizures R56.9 Diabetes type 2, uncontrolled E11.65 Glycemic state: with hyperglycemia COPD (chronic obstructive pulmonary disease) J44.9 Pressure ulcer L89.159 Pressure injury location: sacral region Pressure injury stage: unspecified pressure injury stage
--- NOTE | 2022-05-17 22:33 | PC.NURSE ---
Patient does not want information given to Adrian Ascencio, only to Julia Baum and Lauri Alvarado, who she states is her caregivers.
[2022-05-17 23:32] LABS: Estmated Average Glucose 375; Hemoglobin A1C 14.7 % (4.0-6.0)
[2022-05-17] MEDS: quetiapine 100 mg Tablet 200 MG PO (23:51)
[2022-05-17] MEDS: heparin 5,000 unit/mL INJ 1 mL 5000 UNIT SUBCUT (23:51)
[2022-05-17] MEDS: FUROsemide 10 mg/mL SDV 2mL 20 MG IVP (23:51)
[2022-05-18] VITALS (9 sets, daily range): BP systolic 95–134; BP diastolic 56–81; PULSE 87–99; RESP 16–20; TEMP 36.4–36.8; O2SAT 91–95
[2022-05-18] MEDS: cyclobenzaprine 10 mg Tablet PO (00:28)
[2022-05-18 06:35] LABS: Basophils # 0.1 10^3/uL (0.0-0.1); Basophils % 0.8 %; Eosinophils # 1.5 10^3/uL (0.0-0.8); Eosinophils % 10.6 %; Hematocrit 31.1 % (37.0-47.0); Hemoglobin 9.4 g/dL (11.5-15.3); Lymphocytes # 4.3 10^3/uL (0.8-4.8); Lymphocytes % 30.8 %; Mean Corpuscular HGB Conc 30.2 g/dL (30.0-36.0); Mean Corpuscular Hemoglobin 21.8 pg (28.0-34.0); Mean Platelet Volume 9.8 fL (7.4-10.4); Monocytes # 1.2 10^3/uL (0.2-0.9); Monocytes % 8.9 %; Neutrophils # 6.66 10^3/uL (1.8-7.7); Neutrophils % 47.6 %; Nucleated Red Blood Cells % 0 %; Platelet Count 500 10^3/cmm (130-400); Red Blood Count 4.32 10^6/uL (4.1-5.3); Red Cell Distribution Width 18.7 % (12.1-15.1)
[2022-05-18] MEDS: duloxetine 60 mg Capsule PO (06:43)
[2022-05-18] MEDS: isosorbide mononitrate ER 60 mg Tablet PO (06:43)
[2022-05-18] MEDS: metoprolol succinate ER (24 HR) 25 mg Tablet PO (06:43)
[2022-05-18] MEDS: aspirin 81 mg EC Tablet PO (06:43)
[2022-05-18] MEDS: pantoprazole DR 40 mg Tablet PO (06:43)
[2022-05-18 06:44] LABS: Alanine Aminotransferase 8 U/L (0-33); Albumin Level 2.6 g/dL (3.5-5.2); Alkaline Phosphatase 107 IU/L (35-105); Aspartate Amino Transferase 12 U/L (0-32); Blood Urea Nitrogen 10 mg/dL (6-20); Calcium 8.7 mg/dL (8.5-10.5); Carbon Dioxide 25 mmol/L (22-29); Chloride 97 mmol/L (98-107); Globulin 3.5 g/dL (1.3-4.6); Glomerular Filtration Rate 128.6 mL/min (90-130); Glucose 325 mg/dL (65-115); Magnesium 1.7 mg/dL (1.7-2.3); Osmolality Calculated 286 mOsm/kg (285-295); Phosphorus 2.9 mg/dL (2.5-4.5); Sodium 132 mmol/L (136-145); Total Bilirubin 0.2 mg/dL (0.15-1.2); Total Protein 6.1 g/dL (6.6-8.7)
[2022-05-18 07:00] LABS: Glucose Point of Care 335 mg/dL (70-110)
[2022-05-18 07:02] LABS: Slide Review Slide Review Perform
[2022-05-18] MEDS: ipratropium-albuterol 3 mL Neb INHALATION ×2 (07:54→11:32)
--- NOTE | 2022-05-18 08:05 | XRR_ITS ---
PROCEDURE INFORMATION: Exam: XR Chest Exam date and time: 05/18/2022 5:24 AM Age: 56 years old Clinical indication: Condition or disease; Lung condition and disease; Pneumonia TECHNIQUE: Imaging protocol: Radiologic exam of the chest. Views: 1 view. COMPARISON: CR (CHEST, ) 05/17/2022 6:19 PM FINDINGS: Lungs: Interstitial and asymmetric airspace disease, with interval worsening in right-sided airspace disease. Nonspecific 8 mm nodular density overlying the left lung base. Pleural spaces: No significant pleural effusion. Heart/Mediastinum: No cardiomegaly. Bones/joints: Osteopenia and degenerative change. XR/XR chest 1V portable [id number] IMPRESSION: 1. Interstitial and asymmetric airspace disease, with interval worsening in right-sided airspace disease. 2. Additional findings as described above.
[2022-05-18] MEDS: pregabalin 150 mg Capsule PO (09:07)
[2022-05-18] MEDS: levETIRAcetam 500 mg Tablet PO (09:07)
[2022-05-18] MEDS: ticagrelor 90 mg Tablet PO (09:25)
[2022-05-18] MEDS: heparin 5,000 unit/mL INJ 1 mL 5000 UNIT SUBCUT (09:25)
[2022-05-18] MEDS: insulin lispro 100 unit/1 mL SUBCUT ×2 (09:26→12:32)
[2022-05-18 11:13] LABS: Glucose Point of Care 334 mg/dL (70-110)
--- NOTE | 2022-05-18 11:47 | PM.DCS ---
Discharge Providers Date of Admission: 05/17/22 19:52 Date of Discharge: May 18, 2022 Attending Provider at Admission: Deanne Delgadillo MD Attending Provider at Discharge: Emeterio Prather MD Diagnoses at Discharge Discharge Diagnosis (1) Pneumonia: Status: Acute (2) UTI (urinary tract infection): Status: Acute (3) Essential hypertension: Status: Acute (4) (HFpEF) heart failure with preserved ejection fraction: Status: Acute (5) Seizures: Status: Acute (6) Diabetes type 2, uncontrolled: Status: Acute Qualifiers: Glycemic state: with hyperglycemia Qualified Code(s): E11.65 - Type 2 diabetes mellitus with hyperglycemia (7) COPD (chronic obstructive pulmonary disease): Status: Acute (8) Pressure ulcer: Status: Acute Qualifiers: Pressure injury location: sacral region Pressure injury stage: unspecified pressure injury stage Qualified Code(s): L89.159 - Pressure ulcer of sacral region, unspecified stage Reason for Visit Reason for Visit: possible seizures Hospital Course Hospital Course Mayra Ascencio is a 56 year old female with history of seizures, baseline right-sided deficits from prior CVA, COPD, CHF, CAD, dyslipidemia, fibromyalgia, NSTEMI, obesity, type 2 diabetes mellitus complicated by peripheral neuropathy, septic arthritis of left knee, hypertension Presented to the hospital today for complaint of shortness of breath at home.? She says she has been having a cough for about a week and has been expectorating yellow phlegm.? She is on 2 L nasal cannula at baseline at home.? She states she lives with her sister.? Has had no ill contacts in the recent past.? She does have a history of seizures and follows with a neurologist in [place].? However at this point she wants to follow-up with Dr. Valle here in [facility] She is on Keppra primary twice daily at home, but she cannot tell me.? She also states that she has a sore on her left foot.? She states she has fibromyalgia and is on pain medication at home which she wants us to order here as an inpatient.? Denies any chest pain at this time, shortness of breath, nausea, vomiting, diarrhea, constipation.? Denies dysuria, pelvic pain or any other issues related to urination.? She is a smoker smokes about half pack per day.? Denies alcohol use at this time.? She states she quit long time ago. Of note it was reported in the ER that for the last few days she has had breakthrough seizures.? Denies any fall or injury.? Family witnessed episodes of the seizures.? Patient did confirm she had seizures but was unable to tell me any other details.? There is no family present here at this time. Hospital course: Patient was admitted for the management of pneumonia UTI, breakthrough seizures, She was kept on antibiotics, she responded very well fairly quickly, she was denying any shortness of breath Was afebrile, was saturating well on room air, she has been discharged on p.o. cefadroxil for another 7 days As well as azithromycin. Urine culture was growing gram-negative rods, blood culture is pending. She will continue on Keppra for the seizure. Given the fact that she is fairly stable, she is being discharged to home. She will continue to follow with her primary care physician as an outpatient. She may need neurology follow-up for seizure management. Physical Exam Const: COMMON NORMALS: patient oriented x3 HENMT: COMMON NORMALS: normocephalic and atraumatic HEAD & SCALP: normocephalic and atraumatic Chest: CHEST: Yes Symmetrical chest wall rise Resp: COMMON NORMALS: normal respiratory effort, No retractions, No use of accessory muscles and clear to auscultation bilaterally EFFORT & INSPECTION: Yes symmetric chest movement AUSCULTATION: clear to auscultation bilaterally Cardio: COMMON NORMALS: regular rate, regular rhythm, S1 normal heart sound present, S2 normal heart sound present, No gallops present (Cardio), No murmurs present (Cardio), No rub (Cardio) and Peripheral pulses 2+ throughout RATE: regular rate RHYTHM: regular rhythm HEART SOUNDS: S1 normal heart sound present and S2 normal heart sound present PERIPHERAL PULSES: Peripheral pulses 2+ throughout GI: COMMON NORMALS: Normal to inspection, nondistended, normoactive bowel sounds present, Soft to palpation, non-tender, No hepatosplenomegaly present and no masses AUSCULTATION: Yes normoactive bowel sounds PALPATION: Yes Soft to palpation and Yes No hepatosplenomegaly present RECTAL EXAM: deferred Extremity: COMMON NORMALS: no clubbing, cyanosis or edema and no pedal edema Neuro: COMMON NORMALS: patient oriented x3 Discharge Data Studies Completed and Pending Completed Studies During Hospitalization Category Date Time Status XR chest 1V portable [id number] Routine Exams 05/18/22 08:05 Completed XR chest 1V portable [id number] Urgent Exams 05/17/22 18:01 Completed Pending at discharge Category Date Time Status Blood Culture Routine Lab 05/17/22 21:59 Results Complete Blood Count w/Auto AM LABS Lab 05/19/22 04:00 Ordered Complete Blood Count w/Auto AM LABS Lab 05/20/22 04:00 Ordered Comprehensive Metabolic Panel AM LABS Lab 05/19/22 04:00 Ordered Comprehensive Metabolic Panel AM LABS Lab 05/20/22 04:00 Ordered MRSA by PCR Stat Lab 05/17/22 23:40 Received Magnesium AM LABS Lab 05/19/22 04:00 Ordered Magnesium AM LABS Lab 05/20/22 04:00 Ordered [facility] SARS-CoV-2 RNA Routine Lab 05/18/22 Ordered Respiratory Viral Panel PCR Stat Lab 05/18/22 02:37 Received Sputum Culture and Gram Stain Stat Lab 05/17/22 23:04 Uncollected Urine Culture Stat Lab 05/17/22 16:47 Results Radiology Impressions Chest X-Ray 05/18/22 08:05 IMPRESSION: 1. Interstitial and asymmetric airspace disease, with interval worsening in right-sided airspace disease. 2. Additional findings as described above. Laboratory Results WBC 14.0 10^3/uL (4.0-10.0) H 05/18/22 05:54 RBC 4.32 10^6/uL (4.1-5.3) 05/18/22 05:54 Hgb 9.4 g/dL (11.5-15.3) L 05/18/22 05:54 Hct 31.1 % (37.0-47.0) L 05/18/22 05:54 MCV 72.0 fl (81-99) L 05/18/22 05:54 MCH 21.8 pg (28.0-34.0) L 05/18/22 05:54 MCHC 30.2 g/dL (30.0-36.0) 05/18/22 05:54 RDW 18.7 % (12.1-15.1) H 05/18/22 05:54 Plt Count 500 10^3/cmm (130-400) H 05/18/22 05:54 MPV 9.8 fL (7.4-10.4) 05/18/22 05:54 Neut % (Auto) 47.6 % 05/18/22 05:54 Lymph % (Auto) 30.8 % 05/18/22 05:54 Casey % (Auto) 8.9 % 05/18/22 05:54 Eos % (Auto) 10.6 % 05/18/22 05:54 Baso % (Auto) 0.8 % 05/18/22 05:54 Neut # (Auto) 6.66 10^3/uL (1.8-7.7) 05/18/22 05:54 Lymph # (Auto) 4.3 10^3/uL (0.8-4.8) 05/18/22 05:54 Casey # (Auto) 1.2 10^3/uL (0.2-0.9) H 05/18/22 05:54 Eos # (Auto) 1.5 10^3/uL (0.0-0.8) H 05/18/22 05:54 Baso # (Auto) 0.1 10^3/uL (0.0-0.1) 05/18/22 05:54 Nucleated RBC % (auto) 0 % 05/18/22 05:54 Nucleated RBCs # 0.0 /100WBC 05/18/22 05:54 D-Dimer 1.56 ug/mIFEU (0-0.59) H 05/17/22 16:35 Sodium 132 mmol/L (136-145) L 05/18/22 05:54 Potassium 4.0 mmol/L (3.5-5.1) 05/18/22 05:54 Chloride 97 mmol/L (98-107) L 05/18/22 05:54 Carbon Dioxide 25 mmol/L (22-29) 05/18/22 05:54 Anion Gap 14.0 (5-19) 05/18/22 05:54 BUN 10 mg/dL (6-20) 05/18/22 05:54 Creatinine 0.5 mg/dL (0.5-0.9) 05/18/22 05:54 GFR Calculation 128.6 mL/min (90-130) 05/18/22 05:54 Glucose 325 mg/dL (65-115) H 05/18/22 05:54 POC Glucose 334 mg/dL (70-110) H 05/18/22 11:09 Estimat Average Glucose 375 05/17/22 16:35 Hemoglobin A1c 14.7 % (4.0-6.0) H 05/17/22 16:35 Calculated Osmolality 286 mOsm/kg (285-295) 05/18/22 05:54 Lactic Acid 1.6 mmol/L (0.5-2.2) 05/17/22 21:50 Calcium 8.7 mg/dL (8.5-10.5) 05/18/22 05:54 Phosphorus 2.9 mg/dL (2.5-4.5) 05/18/22 05:54 Magnesium 1.7 mg/dL (1.7-2.3) 05/18/22 05:54 Total Bilirubin 0.2 mg/dL (0.15-1.2) 05/18/22 05:54 AST 12 U/L (0-32) 05/18/22 05:54 ALT 8 U/L (0-33) 05/18/22 05:54 Alkaline Phosphatase 107 IU/L (35-105) H 05/18/22 05:54 NT-Pro-B Natriuret Pep 147 pg/mL (0-125) H 05/17/22 16:35 Total Protein 6.1 g/dL (6.6-8.7) L 05/18/22 05:54 Albumin 2.6 g/dL (3.5-5.2) L 05/18/22 05:54 Globulin 3.5 g/dL (1.3-4.6) 05/18/22 05:54 Lipase 17 U/L (13-60) 05/17/22 16:35 Procalcitonin 0.11 ng/mL (0-0.5) 05/17/22 16:35 Procalcitonin Cancelled 05/17/22 16:35 TSH 1.15 uIU/mL (0.27-4.20) 05/17/22 16:35 TSH Cancelled 05/17/22 16:35 Urine Color Yellow (Yellow) 05/17/22 16:47 Urine Appearance Sl hazy (CLEAR) 05/17/22 16:47 Urine pH 5 (5-7) 05/17/22 16:47 Ur Specific [place] 1.010 (1.005-1.030) 05/17/22 16:47 Urine Protein Neg (Negative) 05/17/22 16:47 Urine Glucose (UA) 4+ (Normal) H 05/17/22 16:47 Urine Ketones Negative (Negative) 05/17/22 16:47 Urine Blood Neg (Negative) 05/17/22 16:47 Urine Nitrate Positive (Negative) H 05/17/22 16:47 Urine Bilirubin Neg (Negative) 05/17/22 16:47 Urine Urobilinogen Norm mg/dL (Negative) 05/17/22 16:47 Ur Leukocyte Esterase Negative (Negative) 05/17/22 16:47 Urine RBC None /hpf (0-2) 05/17/22 16:47 Urine WBC 25-40 /hpf (0-5) H 05/17/22 16:47 Ur Squamous Epith Cells Rare /hpf (0-5) 05/17/22 16:47 Amorphous Sediment Not Reportable 05/17/22 16:47 Urine Bacteria 3+ /hpf (NONE) H 05/17/22 16:47 Urine Mucus Trace /hpf 05/17/22 16:47 Coronavirus 229E (PCR) Cancelled 05/18/22 02:37 SARS-CoV-2 (PCR) Cancelled 05/18/22 02:37 SARS-CoV-2 Ag (Rapid) Negative (Negative) 05/17/22 18:35 Vitals Last Vital Signs Temp 98.0 F 05/18/22 11:07 Pulse 91 05/18/22 11:35 Resp 20 H 05/18/22 11:35 BP 109/63 05/18/22 11:07 Pulse Ox 91 05/18/22 11:35 O2 Del Method 05/18/22 11:35 O2 Flow Rate 4.5 05/18/22 07:54 Discharge Plan Discharge Patient Disposition: Home Condition: Stable Prescriptions: New cefadroxil 500 mg capsule 500 mg PO BID Qty: 14 0RF azithromycin 500 mg tablet 500 mg PO DAILY 7 Days Qty: 7 0RF Continued (DME) COCK UP SPLINT See Rx Instructions .Route .MEDSUPPLY Qty: 2 0RF Rx Instructions: As directed Repatha SureClick 140 mg/mL pen injector 140 mg SUBCUT .[id number] Qty: 2 5RF Levemir FlexTouch U-100 Insuln 100 unit/mL (3 mL) insulin pen 10 unit SUBCUT QAM Qty: 15 0RF insulin lispro [Humalog KwikPen Insulin] 100 unit/mL insulin pen See Rx Instructions .ROUTE .COMPLEX Qty: 15 1RF Rx Instructions: sliding scale subcutaneously tid losartan 50 mg tablet 50 mg PO DAILY@0800 Qty: 180 3RF (DME) pen needle, diabetic [Comfort EZ Pen [place]] 32 gauge x 5/32 needle See Rx Instructions .Route Qty: 100 2RF Rx Instructions: use 3times a day to inject insulin. (DME) pen needle, diabetic [Comfort EZ Pen [place]] 31 gauge x 5/16 needle See Rx Instructions .Route Qty: 100 6RF Rx Instructions: use daily with levemir Brilinta 90 mg tablet 90 mg PO BID@08,21 Qty: 180 4RF Spiriva with HandiHaler 18 mcg capsule, w/inhalation device 1 cap inhalation DAILY Qty: 30 3RF Rx Instructions: puncture 1 cap using device; one dose = 2 inhalations naloxone 4 mg/actuation spray,non-aerosol 4 mg intranasal Q2M PRN (Reason: opioid overdose) Qty: 2 0RF Rx Instructions: spray 1 dose into ONE nostril; alternate nostrils w each dose until help arrives cyclobenzaprine 10 mg tablet 10 mg PO TID PRN (Reason: muscle spasm) 30 Days Qty: 90 0RF pregabalin [Lyrica] 150 mg capsule 150 mg PO BID Qty: 60 3RF hydromorphone 2 mg tablet 2 mg PO Q8H 30 Days Qty: 90 0RF acetaminophen 325 mg Tablet 650 mg PO Q6H PRN (Reason: Mild/Mod Pain Or Temp >/= 101) Qty: 30 0RF albuterol sulfate 2.5 mg /3 mL (0.083 %) Solution For Nebulization 2.5 mg INHALATION Q4H PRN (Reason: Shortness Of Breath) Nitrostat 0.4 mg Tablet, Sublingual 0.4 mg SUBLINGUAL Q5M PRN (Reason: Chest Pain) Rx Instructions: do not exceed 3 doses per episode metoprolol succinate 25 mg tablet extended release 24 hr 25 mg PO QAM furosemide 40 mg tablet 40 mg PO DAILY PRN (Reason: Edema) atorvastatin 80 mg tablet 80 mg PO QAM levetiracetam 500 mg tablet 500 mg PO BID quetiapine 200 mg tablet 200 mg PO BEDTIME Adult Aspirin Regimen 81 mg tablet,delayed release (DR/EC) 81 mg PO QAM isosorbide mononitrate 60 mg tablet extended release 24 hr 60 mg PO QAM pantoprazole 40 mg tablet,delayed release (DR/EC) 40 mg PO QAM oxybutynin chloride 5 mg tablet extended release 24 hr 5 mg PO QAM albuterol sulfate 90 mcg/actuation HFA aerosol inhaler 1 puff inhalation Q6H PRN (Reason: Shortness Of Breath) duloxetine 60 mg capsule,delayed release(DR/EC) 60 mg PO QAM Rybelsus 3 mg tablet 3 mg PO QAM Discontinued levofloxacin 750 mg tablet 750 mg PO DAILY Qty: 5 0RF Discharge Orders: Discharge Order (Routine); Ordered 05/18/22 Ordered By: Emeterio Prather Patient Instructions: Opioid Safety Discharge Attestations Time Spent in Discharge Care*: less than 30 min Status at Discharge: Cognitive status at discharge: mildly impaired cognition, Behavioral status at discharge: cooperative, Quality Metrics Clinical Quality Measures [ No reported AMI, CVA or VTE this stay] Coding Level of Care Code Acute Chg FW DC note Exam Detailed Diagnoses Pneumonia J18.9 UTI (urinary tract infection) N39.0 Essential hypertension I10 (HFpEF) heart failure with preserved ejection fraction I50.30 Seizures R56.9 Diabetes type 2, uncontrolled E11.65 Glycemic state: with hyperglycemia COPD (chronic obstructive pulmonary disease) J44.9 Pressure ulcer L89.159 Pressure injury location: sacral region Pressure injury stage: unspecified pressure injury stage
[2022-05-22 15:27] LABS: Adenovirus Not Detected (Not Detected); Human Metapneumovirus Not Detected (Not Detected); Human Parainflu Virus 1 Not Detected (Not Detected); Human Parainflu Virus 2 Not Detected (Not Detected); Human Parainflu Virus 3 Not Detected (Not Detected); Human Rsv A Not Detected (Not Detected); Influenza A Not Detected (Not Detected); Influenza B Not Detected (Not Detected); Rhinovirus/Enterovirus Not Detected (Not Detected)
== END 2022-05-18 16:44 | disposition home or self-care (01) | DRG 194 ==
LOC: ER 20:25 → MEDSURG 22:19
PROVIDERS: Admitting Provider Internal Medicine; Emergency Provider Emergency Medicine; Visit Provider Internal Medicine
DX: J18.9 Pneumonia, unspecified organism (principal); E87.1 Hypo-osmolality and hyponatremia; I50.32 Chronic diastolic (congestive) heart failure; N39.0 Urinary tract infection, site not specified; I69.351 Hemiplegia and hemiparesis following cerebral infarction affecting right dominant side; R56.9 Unspecified convulsions; E11.65 Type 2 diabetes mellitus with hyperglycemia; L89.159 Pressure ulcer of sacral region, unspecified stage; F17.210 Nicotine dependence, cigarettes, uncomplicated; Z99.81 Dependence on supplemental oxygen; I11.0 Hypertensive heart disease with heart failure; J44.9 Chronic obstructive pulmonary disease, unspecified; E11.42 Type 2 diabetes mellitus with diabetic polyneuropathy; E78.5 Hyperlipidemia, unspecified; D75.839 Thrombocytosis, unspecified; D64.9 Anemia, unspecified
CPT/HCPCS: 11042; 36415; 36416; 71045; 80053; 81001; 82962; 83036; 83605; 83690; 83735; 83880; 84100; 84145; 84443; 85025; 85378; 86403; 87040; 87077; 87086; 87186; 87205; 87426; 87449; 87633; 87641; 93005; 94640; 94664; 96365; 96367; 96372; 99285; J0456; J0696; J1644; J1815; J1940; J1953; J7030; J7050

== ENCOUNTER 2022-05-25 17:09 | Observation (INO) | payer MEDICARE, MEDICAID, SELFPAY ==
[2022-05-25 17:16] VITALS: BP 115/60; PULSE 114; RESP 18; TEMP 36.6; O2SAT 99; BMI 33.6
--- NOTE | 2022-05-25 19:08 | W.ED.GENADLT ---
HPI - General Adult General: Chief complaint: ER Hold Stated complaint: abdnormality on backside Time Seen by Provider: 05/25/22 18:56 History of Present Illness: Patient is a 56-year-old female history of diabetes presented emergency with complaints of glued pain. Patient first noticed a boil on the glutes that has since then spread. Patient denies any fever but reports significant pain in the last 3 days area. To the point where she is not able to stand up or ambulate. Patient denies any prior COVID infection. Patient denies nausea/vomiting, fever/chill, chest pain, shortness of breath, abdominal pain, dysuria/hematuria/polyuria, diarrhea/melena/hematochezia. Onset:7 days ago Duration:7 days Location:home Severity:severe Associated symptoms: Deny chest pain, dyspnea, nausea, rash, palpitations or vomiting Review of Systems Const: Denies: fever(s) or chills Eyes: Denies: change in vision ENMT: Denies: mouth pain Card: Denies: chest pain or palpitations Resp: Denies: dyspnea or non-productive cough GI: Denies: abdominal pain, nausea, vomiting or diarrhea : Reports: other (+glute pain); Denies: dysuria Musc: Denies: extremity pain Skin/Breast: Denies: rash or new lesions Neuro: Denies: weakness in extremities Psych: Reports: other (Normal mood) Xavier/Lymph: Denies: easy bruising PFS ED PFSH: Medical History (HFpEF) heart failure with preserved ejection fraction Abnormal stress test Acute and chronic respiratory failure with hypoxia Acute exacerbation of CHF (congestive heart failure) Acute hypoxemic respiratory failure Acute kidney injury Anemia CAD (coronary artery disease) Candidiasis of vagina Carpal tunnel syndrome, right Chest pain Chest pain, midsternal Chronic knee pain Chronic left-sided low back pain Chronic obstructive pulmonary disease, unspecified Chronic pain of left knee Compression fracture of L2 lumbar vertebra COPD (chronic obstructive pulmonary disease) COPD exacerbation Coronary artery disease due to type 2 diabetes mellitus Current every day smoker CVA (cerebral vascular accident) Dehydration Demand ischemia Diabetes type 2, uncontrolled Diabetic foot ulcer Dyslipidemia Dyspnea Elevated troponin Encounter for long-term opiate analgesic use Essential hypertension Exposure to COVID-19 virus Fall Fall Fibromyalgia, primary History of CVA (cerebrovascular accident) History of hypoglycemic coma Hoarseness of voice Hyperlipidemia, mixed Hypoxemia Insomnia Intervertebral disc disorder of lumbar region with myelopathy Leukocytosis Low back pain radiating to both legs Lumbosacral spondylosis without myelopathy Needs flu shot Neuropathy NSTEMI (non-ST elevated myocardial infarction) Thought to be secondary to plaque rupture. Angiogram July 04 no flow-limiting lesions, or restenosis of previous stent from April 2020 Numbness and tingling in both hands Obesity (BMI 35.0-39.9 without comorbidity) Opioid contract exists Osteoarthritis of left knee Osteoarthritis of spine at multiple levels Pericardial effusion Peripheral sensory neuropathy due to type 2 diabetes mellitus Pneumonia Pneumonia Pressure ulcer Prosthetic joint infection Right arm weakness Right hip pain Seizure Seizures Sepsis Septic arthritis of knee, left Stenosis of left internal carotid artery with cerebral infarction Syncope Type 2 diabetes mellitus with diabetic autonomic (poly)neuropathy Unstable angina Urinary incontinence Urinary tract infection UTI (urinary tract infection) Vitamin D deficiency Surgical History History of arthroscopic surgery of elbow BILATERAL History of coronary angiogram Angiogram April 2020 with 90% circumflex lesion, drug-eluting stent placed by Dr. Jerome S/p bilateral carpal tunnel release S/P hysterectomy S/P knee surgery RIGHT S/P lumbar fusion DR. Shreya ZAYAS IN [place], [place] L4-L5, L5-S1 Status post left knee replacement Status post lumbar laminectomy Family History Other CAD (coronary artery disease) Cancer Diabetes Social History Smoking and tobacco status: current every day smoker cigarettes Packs smoked per day: 0.5 [ Other cigarette details: PER PATIENT REPORT] Smoking risk assessment/counseling performed?: Yes Alcohol intake: former Desire information about alcohol rehabilitation?: No Counseling given: No Desire information about substance/drug rehabilitation?: No Counseling given: No Caregiver/support person: No Lives independently: Yes Household members: family and other Details: son Housing: Manufactured/Mobile home Marital status: Unknown Marital status details: She and son state she is not service: No Current occupational status: unemployed Pets and animals: Yes History of recent travel: No Current gender identity: Female Physical Exam Const: COMMON NORMALS: alert HENMT: COMMON NORMALS: atraumatic HEAD & SCALP: atraumatic MOUTH: moist mucous membranes not abnormal Eye: COMMON NORMALS: EOMs intact bilaterally and conjunctivae normal CONJUNCTIVA: Yes conjunctivae normal Neck/C-Spine: COMMON NORMALS: full ROM and supple Resp: COMMON NORMALS: normal respiratory effort and clear to auscultation bilaterally AUSCULTATION: clear to auscultation bilaterally Cardio: COMMON NORMALS: regular rate RATE: regular rate GI: COMMON NORMALS: Soft to palpation and non-tender PALPATION: Yes Soft to palpation : OTHER: +b/ gluteal induration with induration and significant tenderness palpation Extremity: COMMON NORMALS: full ROM Neuro: SENSORIUM/ORIENTATION: Yes alert MOTOR EXAM: No Abnormal motor strength present and Other motor observations present (no focal motor deficits) Psych: COMMON NORMALS: speech normal SPEECH: Yes normal speech MOOD & AFFECT: Yes euthymic mood Course Vital Signs: Vital signs: Vital Signs Temperature 98.2 F 05/27/22 08:00 Pulse Rate 112 H 05/27/22 10:45 Respiratory Rate 18 05/27/22 10:45 Blood Pressure 150/84 05/27/22 08:54 Pulse Oximetry 95 05/27/22 10:45 Oxygen Delivery Me thod 05/27/22 08:58 Oxygen Flow Rate 2 05/26/22 10:30 [facility] - General Adult Medical Decision Making 56-year-old man with history of diabetes presenting to the emergency room with concerns of possible toe infection. CT shows cellulitis with extension into the paramedian space. Patient has a white blood count 15K. Patient received multiple doses of pain medicine. Discussed case with Dr. Crawford recommended antibiotics and evaluation under anesthesia in the AM. Disposition: Admission Lab Data : 05/27/22 09:30 05/27/22 09:[address] 05/25/22 19:08 IMPRESSION: 1. Continued 4.5 x 2.3 x 1.7 cm inflammation in the left paramedian subcutaneous fat at the level of S4 and S5 suggesting cellulitis versus fat necrosis versus contusion versus other etiology. Axial series 3, images 22-35. 2. No obvious abscess or soft tissue emphysema. Laboratory Results WBC 18.0 10^3/uL (4.0-10.0) H 05/26/22 10:35 RBC 4.82 10^6/uL (4.1-5.3) 05/26/22 10:35 Hgb 10.4 g/dL (11.5-15.3) L 05/26/22 10:35 Hct 34.4 % (37.0-47.0) L 05/26/22 10:35 MCV 71.4 fl (81-99) L 05/26/22 10:35 MCH 21.6 pg (28.0-34.0) L 05/26/22 10:35 MCHC 30.2 g/dL (30.0-36.0) 05/26/22 10:35 RDW 18.4 % (12.1-15.1) H 05/26/22 10:35 Plt Count 567 10^3/cmm (130-400) H 05/26/22 10:35 MPV 9.3 fL (7.4-10.4) 05/26/22 10:35 Neut % (Auto) 68.1 % 05/26/22 10:35 Lymph % (Auto) 17.8 % 05/26/22 10:35 [place] % (Auto) 5.3 % 05/26/22 10:35 Eos % (Auto) 7.2 % 05/26/22 10:35 Baso % (Auto) 0.8 % 05/26/22 10:35 Neut # (Auto) 12.23 10^3/uL (1.8-7.7) H 05/26/22 10:35 Lymph # (Auto) 3.2 10^3/uL (0.8-4.8) 05/26/22 10:35 [place] # (Auto) 1.0 10^3/uL (0.2-0.9) H 05/26/22 10:35 Eos # (Auto) 1.3 10^3/uL (0.0-0.8) H 05/26/22 10:35 Baso # (Auto) 0.1 10^3/uL (0.0-0.1) 05/26/22 10:35 Nucleated RBC % (auto) 0 % 05/26/22 10:35 Total Counted 100 (0-100) 05/25/22 19:20 Atypical Lymphs % 11.0 % (0-5) H 05/25/22 19:20 Absolute Neutrophils 9.6 10^3/cmm (1.4-6.5) H 05/25/22 19:20 Segmented Neutrophils 63 % 05/25/22 19:20 Abs Segm Neuts (Man) 9.6 10/cmm (1.6-7.1) H 05/25/22 19:20 Band Neutrophils 0.0 % 05/25/22 19:20 Abs Band Neuts (Man) 0.0 10^3/cmm (0.0-1.2) 05/25/22 19:20 Absolute Lymphocytes 4.7 10^3/cmm (1.2-3.4) H 05/25/22 19:20 Lymphocytes (Manual) 20 % 05/25/22 19: Monocytes (Manual) 2.0 % 05/25/22 19: Absolute Monocytes 0.3 10^3/cmm (0.1-0.6) 05/25/22 19:20 Eosinophils (Manual) 3 % 05/25/22 19: Absolute Eosinophils 0.4 10^3/cmm (0.0-0.7) 05/25/22 19:20 Basophils (Manual) 0.0 % 05/25/22 19: Absolute Basophils 0.0 10^3/cmm (0.0-0.2) 05/25/22 19: Myelocytes 1.0 % 05/25/22 19: Nucleated RBCs # 0.0 /100WBC 05/26/22 10:35 Platelet Estimate Increased (Normal) H 05/25/22 19:20 ESR 38 mm/hr (0-15) H 05/25/22 19:20 PT 13.60 SECONDS (12.1-14.9) 05/26/22 10:35 INR 1.01 (0.8-1.2) 05/26/22 10:35 APTT 36.9 SECONDS (23.9-36.7) H 05/25/22 19:53 Sodium 141 mmol/L (136-145) 05/26/22 10:35 Potassium 4.3 mmol/L (3.5-5.1) 05/26/22 10:35 Chloride 109 mmol/L (98-107) H 05/26/22 10:35 Carbon Dioxide 24 mmol/L (22-29) 05/26/22 10:35 Anion Gap 12.3 (5-19) 05/26/22 10:35 BUN 11 mg/dL (6-20) 05/26/22 10:35 Creatinine 0.5 mg/dL (0.5-0.9) 05/26/22 10:35 GFR Calculation 128.6 mL/min (90-130) 05/26/22 10:35 Glucose 221 mg/dL (65-115) H 05/26/22 10:35 POC Glucose 307 mg/dL (70-110) H 05/26/22 07:44 Estimat Average Glucose 335 05/25/22 19:20 Hemoglobin A1c 13.3 % (4.0-6.0) H 05/25/22 19:20 Calculated Osmolality 298 mOsm/kg (285-295) H 05/26/22 10:35 Calcium 8.5 mg/dL (8.5-10.5) 05/26/22 10:35 Phosphorus 3.5 mg/dL (2.5-4.5) 05/26/22 10:35 Magnesium 1.7 mg/dL (1.7-2.3) 05/26/22 10:35 Total Bilirubin 0.2 mg/dL (0.15-1.2) 05/26/22 10:35 AST 10 U/L (0-32) 05/26/22 10:35 ALT 8 U/L (0-33) 05/26/22 10:35 Alkaline Phosphatase 99 IU/L (35-105) 05/26/22 10:35 C-Reactive Protein 7.4 mg/L (0.0-4.9) H 05/26/22 10:35 NT-Pro-B Natriuret Pep 73 pg/mL (0-125) 05/26/22 10:35 Total Protein 6.0 g/dL (6.6-8.7) L 05/26/22 10:35 Albumin 3.1 g/dL (3.5-5.2) L 05/26/22 10:35 Globulin 2.9 g/dL (1.3-4.6) 05/26/22 10:35 Procalcitonin 0.03 ng/mL (0-0.5) 05/26/22 10:35 Imaging Data Other Imaging: Radiologist's impression: [address] [place] [address] CT Scan Report Signed Patient: Mayra Ascencio Unit #: [id number] : [id number] Age/Sex: 56 / F ADM Date: 05/25/22 Loc: ER Room/Bed: Attending Dr: Ordering Provider/Ordering MD: Duran Boyd MD Date of Service: 05/25/22 Procedure(s): CT pelvis w con* [id number] Accession Number(s): [id number] Report Number: [id number] PROCEDURE INFORMATION: Exam: CT Pelvis With Contrast Exam date and time: 05/25/2022 7:51 PM Age: 56 years old Clinical indication: Perianal pain; Additional info: Possible perirectal abscess TECHNIQUE: Imaging protocol: Computed tomography of the pelvis with contrast. Radiation optimization: All CT scans at this facility use at least one of these dose optimization techniques: automated exposure control; mA and/or kV adjustment per patient size (includes targeted exams where dose is matched to clinical indication); or iterative reconstruction. Contrast material: OMNIPAQUE 350; Contrast volume: 75 ml; Contrast route: INTRAVENOUS (IV);? COMPARISON: CT bony pelvis [id number] 03/16/2021 4:57 AM RADIATION DOSE METRICS: Total DLP (mGy-cm): 637.35 FINDINGS: Stomach and bowel: Visualized small bowel and colon are unremarkable. Appendix: No evidence of appendicitis. Intraperitoneal space: Unremarkable. No free air. No significant fluid collection. Vasculature: Calcification of the abdominal aorta and/or iliac arteries consistent with atherosclerotic vessel disease. Lymph nodes: Unremarkable. No enlarged lymph nodes. Urinary bladder: Normal. No mass. Reproductive: Status post hysterectomy. Bones/joints: Continued 4.5 x 2.3 x 1.7 cm inflammation in the left paramedian subcutaneous fat at the level of S4 and S5 suggesting cellulitis versus fat necrosis versus contusion versus other etiology. Axial series 3, images 22-35. Soft tissues: No obvious abscess or soft tissue emphysema. Other findings: Stable postoperative changes over the lumbar spine with metallic fixation and metallic artifact. CT/CT pelvis w con* [id number] IMPRESSION: 1. Continued 4.5 x 2.3 x 1.7 cm inflammation in the left paramedian subcutaneous fat at the level of S4 and S5 suggesting cellulitis versus fat necrosis versus contusion versus other etiology. Axial series 3, images 22-35. 2. No obvious abscess or soft tissue emphysema. ? Dictated By: Luis Manuel Hayes MD Signed By: Luis Manuel Hayes MD Signed Date/Time: 05/25/222026 DD/ 50 Discharge Plan Discharge Patient Disposition: Admitted As Inpatient Admit Provider: Kehinde Cruz Clinical Impression: Cellulitis of gluteal region Condition: Stable Discharge Diet: Diabetic Discharge Activity: Increase activity as tolerated Coding Level of Care Code ED Self Defense Instructor for Chg Fwd Exam Comprehensive
[2022-05-25 19:18] VITALS: RESP 18
[2022-05-25] MEDS: HYDROmorphone 1 mg/mL INJ 1 mL 0.5 MG IVP ×2 (19:18→20:15)
[2022-05-25 19:26] LABS: Hematocrit 37.8 % (37.0-47.0); Hemoglobin 11.3 g/dL (11.5-15.3); Mean Corpuscular HGB Conc 29.9 g/dL (30.0-36.0); Mean Corpuscular Volume 70.3 fl (81-99); Mean Platelet Volume 9.2 fL (7.4-10.4); Platelet Count 668 10^3/cmm (130-400); Red Blood Count 5.38 10^6/uL (4.1-5.3); Red Cell Distribution Width 18.9 % (12.1-15.1); White Blood Count 15.2 10^3/uL (4.0-10.0)
[2022-05-25 19:47] LABS: Anion Gap 18.7 (5-19); Blood Urea Nitrogen 17 mg/dL (6-20); C Reactive Protein 3.9 mg/L (0.0-4.9); Calcium 9.5 mg/dL (8.5-10.5); Carbon Dioxide 23 mmol/L (22-29); Chloride 95 mmol/L (98-107); Glomerular Filtration Rate 74.7 mL/min (90-130); Glucose 355 mg/dL (65-115); Osmolality Calculated 290 mOsm/kg (285-295); Potassium 4.7 mmol/L (3.5-5.1); Sodium 132 mmol/L (136-145)
[2022-05-25] MEDS: iohexol 350 mg/mL 100 mL Btl IV (19:58)
[2022-05-25 20:03] LABS: Slide Review Slide Review Perform
[2022-05-25 20:04] LABS: Absolute Eosinophils 0.4 10^3/cmm (0.0-0.7); Absolute Segmented Neutrophil 9.6 10/cmm (1.6-7.1); Eosinophils 3 %; Lymphocytes 20 %; Lymphocytes Absolute 4.7 10^3/cmm (1.2-3.4); Monocytes Absolute 0.3 10^3/cmm (0.1-0.6); Segmented Neutrophils 63 %; Total Cells Counted 100 (0-100)
[2022-05-25 20:06] LABS: Absolute Neutrophil 9.6 10^3/cmm (1.4-6.5); Platelet Estimate Increased (Normal)
[2022-05-25 20:15] VITALS: RESP 20
[2022-05-25] MEDS: sodium chloride 0.9% 1,000 ML 999 ML IV ×2 (20:38→21:21)
[2022-05-25] MEDS: cefepime 1,000 MG in sodium chloride 0.9% (plus) 50 ML 100 MG IV (20:45)
[2022-05-25 20:51] LABS: INR 1.01 (0.8-1.2)
[2022-05-25 20:52] LABS: Partial Thromboplastin Time 36.9 SECONDS (23.9-36.7)
--- NOTE | 2022-05-25 21:12 | PC.NURSE ---
Dr. Boyd approved for patient to have vancomycin even with a clindamycin allergy.
[2022-05-25] MEDS: vancomycin 1,000 MG in sodium chloride 0.9% 250 ML 250 MG IV (21:20)
[2022-05-25 21:22] LABS: Erythrocyte Sedimentation Rate 38 mm/hr (0-15)
--- NOTE | 2022-05-25 21:25 | P.HP_ITS ---
Providers/Chief Complaint Chief Complaint: abdnormality on backside History of Present Illness Mayra Ascencio is a 56 year old female with a past medical history of insulin- dependent type 2 diabetes mellitus, chronic pain on Dilaudid, diabetic peripheral neuropathy, history of left foot diabetic ulcers, heart failure with preserved ejection fraction, CAD, on aspirin and Brilinta, COPD, CVA dyslipidemia, history of Crohn's disease, history of left foot diabetic ulcer who presents [facility] due to pain and drainage and a rash in her gluteal clefts. Patient tells me that she has had pain in her gluteal region for the last few days, no fevers, chills, she has severe pain upon ambulation, no recent falls, recent injuries, over the location, she does report history of Crohn's disease diagnosed in [place], no history of fistula, no fevers, chills Review of Systems Const: Denies: fever(s) or chills Eyes: Denies: change in vision Card: Denies: chest pain or palpitations GI: Denies: abdominal pain, nausea or vomiting : Denies: flank pain or difficulty voiding Skin/Breast: Reports: rash Medications/Allergies Home Medications Medication Instructions Recorded Confirmed Last Taken Type acetaminophen 325 mg tablet 650 mg PO Q6H PRN Mild/Mod Pain Or 10/16/20 05/24/22 04/21/21 Rx Temp >/= 101 #30 tabs evolocumab 140 mg/mL subcutaneous 140 mg SUBCUT .[id number] #2 mL 03/05/22 05/24/22 Unknown Rx pen injector (Repatha SureClick) insulin detemir U-100 100 unit/mL 10 unit (0.1 mL) SUBCUT QAM #15 mL 03/05/22 05/24/22 05/17/22 Rx (3 mL) subcutaneous pen (Levemir FlexTouch U-100 Insulin) insulin lispro 100 unit/mL See Rx Instructions .Route 03/05/22 05/24/22 05/16/22 Rx subcutaneous pen (Humalog KwikPen .COMPLEX #15 mL (U-100) Insulin) losartan 50 mg tablet 50 mg PO DAILY@0800 #180 tabs 03/05/22 05/24/22 05/17/22 07:00 Rx pen needle, diabetic 31 gauge x #100 ea 03/05/22 05/24/22 Unknown Rx 16 (Comfort EZ Pen [place]) pen needle, diabetic 32 gauge x #100 ea 03/05/22 05/24/22 Unknown Rx (Comfort EZ Pen [place]) ticagrelor 90 mg tablet (Brilinta) 90 mg PO BID@08, #180 tabs 03/05/22 05/24/22 05/17/22 07:00 Rx tiotropium bromide 18 mcg capsule 1 cap inhalation DAILY #30 03/05/22 05/24/22 05/17/22 07:00 Rx with inhalation device (Spiriva inhalations with HandiHaler) naloxone 4 mg/actuation nasal spray 4 mg intranasal Q2M PRN opioid 03/11/22 05/24/22 Unknown Rx overdose #2 ea pregabalin 150 mg capsule (Lyrica) 150 mg PO BID #60 caps 04/30/22 05/24/22 05/17/22 07:00 Rx hydromorphone 2 mg tablet 2 mg PO Q8H 30 days #90 tabs 05/03/22 05/24/22 05/17/22 07:00 Rx 2 TABS albuterol sulfate 2.5 mg inhalation Q4H PRN 05/17/22 05/24/22 Unknown History Shortness Of Breath albuterol sulfate 90 mcg/actuation 1 puff inhalation Q6H PRN 05/17/22 05/24/22 Unknown History aerosol inhaler Shortness Of Breath aspirin 81 mg tablet,delayed 81 mg PO QAM 05/17/22 05/24/22 05/17/22 07:00 History release (Adult Aspirin Regimen) atorvastatin 80 mg tablet 80 mg PO QAM 05/17/22 05/24/22 05/17/22 07:00 History duloxetine 60 mg capsule,delayed 60 mg PO QAM 05/17/22 05/24/22 05/17/22 07:00 History release isosorbide mononitrate 60 mg 60 mg PO QAM 05/17/22 05/24/22 05/17/22 History tablet,extended release 24 hr levetiracetam 500 mg tablet 500 mg PO BID 05/17/22 05/24/22 05/17/22 07:00 History metoprolol succinate 25 mg 25 mg PO QAM 05/17/22 05/24/22 05/17/22 History tablet,extended release 24 hr nitroglycerin 0.4 mg sublingual 0.4 mg sublingual Q5M PRN Chest 05/17/22 05/24/22 Unknown History tablet (Nitrostat) Pain oxybutynin chloride 5 mg 5 mg PO QAM 05/17/22 05/24/22 05/17/22 History tablet,extended release 24 hr pantoprazole 40 mg tablet,delayed 40 mg PO QAM 05/17/22 05/24/22 05/17/22 History release quetiapine 200 mg tablet 200 mg PO BEDTIME 05/17/22 05/24/22 05/16/22 History cefadroxil 500 mg capsule 500 mg PO BID #14 caps 05/18/22 05/24/22 Unknown Rx furosemide 40 mg tablet 40 mg PO DAILY PRN Edema #30 tabs 05/19/22 05/24/22 Unknown Rx cyclobenzaprine 10 mg tablet 10 mg PO TID PRN muscle spasm 30 05/25/22 Unknown Rx days #90 tabs semaglutide 3 mg tablet (Rybelsus) 3 mg PO QAM #30 tabs 05/25/22 Unknown Rx Allergies Allergy/AdvReac Type Severity Reaction Status Date / Time fentanyl Allergy Unknown ALGY-Difficulty Verified 05/24/22 14:27 Breathing adhesive Allergy Unknown Verified 05/24/22 14:27 clindamycin Allergy ADR-Itching Verified 05/24/22 14:27 codeine Allergy Unknown Verified 05/24/22 14:27 hydrocodone Allergy Unknown Verified 05/24/22 14:27 latex Allergy ALGY-Swell Verified 05/24/22 14:27 Lip/Tongue/Throat naproxen [From Naprosyn] Allergy Unknown Verified 05/24/22 14:27 nut - unspecified Allergy ALGY-Anaphy Verified 05/24/22 14:27 laxis oxycodone [From Roxicodone] Allergy ADR-Muscle Verified 05/24/22 14:27 Pain Penicillins Allergy Unknown Verified 05/24/22 14:27 sulfamethoxazole Allergy ADR-Migrain Verified 05/24/22 14:27 [From Bactrim] e trimethoprim [From Bactrim] Allergy ADR-Migrain Verified 05/24/22 14:27 e PFSH Acute PFSH: Medical History (Updated 05/25/22 @ 21:31 by Kehinde Cruz MD) (HFpEF) heart failure with preserved ejection fraction Abnormal stress test Acute and chronic respiratory failure with hypoxia Acute exacerbation of CHF (congestive heart failure) Acute hypoxemic respiratory failure Acute kidney injury Anemia CAD (coronary artery disease) Candidiasis of vagina Carpal tunnel syndrome, right Chest pain Chest pain, midsternal Chronic knee pain Chronic left-sided low back pain Chronic obstructive pulmonary disease, unspecified Chronic pain of left knee Compression fracture of L2 lumbar vertebra COPD (chronic obstructive pulmonary disease) COPD exacerbation Coronary artery disease due to type 2 diabetes mellitus Current every day smoker CVA (cerebral vascular accident) Dehydration Demand ischemia Diabetes type 2, uncontrolled Diabetic foot ulcer Dyslipidemia Dyspnea Elevated troponin Encounter for long-term opiate analgesic use Essential hypertension Exposure to COVID-19 virus Fall Fall Fibromyalgia, primary History of CVA (cerebrovascular accident) History of hypoglycemic coma Hoarseness of voice Hyperlipidemia, mixed Hypoxemia Insomnia Intervertebral disc disorder of lumbar region with myelopathy Leukocytosis Low back pain radiating to both legs Lumbosacral spondylosis without myelopathy Needs flu shot Neuropathy NSTEMI (non-ST elevated myocardial infarction) Thought to be secondary to plaque rupture. Angiogram July 04 no flow- limiting lesions, or restenosis of previous stent from April 2020 Numbness and tingling in both hands Obesity (BMI 35.0-39.9 without comorbidity) Opioid contract exists Osteoarthritis of left knee Osteoarthritis of spine at multiple levels Pericardial effusion Peripheral sensory neuropathy due to type 2 diabetes mellitus Pneumonia Pneumonia Pressure ulcer Prosthetic joint infection Right arm weakness Right hip pain Seizure Seizures Sepsis Septic arthritis of knee, left Stenosis of left internal carotid artery with cerebral infarction Syncope Type 2 diabetes mellitus with diabetic autonomic (poly)neuropathy Unstable angina Urinary incontinence Urinary tract infection UTI (urinary tract infection) Vitamin D deficiency Surgical History History of arthroscopic surgery of elbow BILATERAL History of coronary angiogram Angiogram April 2020 with 90% circumflex lesion, drug-eluting stent placed by Dr. Jerome S/p bilateral carpal tunnel release S/P hysterectomy S/P knee surgery RIGHT S/P lumbar fusion DR. Shreya ZAYAS IN [place], [place] L4-L5, L5-S1 Status post left knee replacement Status post lumbar laminectomy Family History Other CAD (coronary artery disease) Cancer Diabetes Social History Smoking and tobacco status: current every day smoker cigarettes Packs smoked per day: 0.5 [ Other cigarette details: PER PATIENT REPORT] Smoking risk assessment/counseling performed?: Yes Alcohol intake: former Desire information about alcohol rehabilitation?: No Counseling given: No Desire information about substance/drug rehabilitation?: No Counseling given: No Caregiver/support person: No Lives independently: Yes Household members: family and other Details: son Housing: Manufactured/Mobile home Marital status: Unknown Marital status details: She and son state she is not service: No Current occupational status: unemployed Pets and animals: Yes History of recent travel: No Current gender identity: Female Vitals/I&O/Wt Last Vital Signs Temp 98 F 05/25/22 17:16 Pulse 114 H 05/25/22 17:16 Resp 20 H 05/25/22 20:15 BP 115/60 05/25/22 17:16 Pulse Ox 99 05/25/22 17:16 O2 Del Method 05/25/22 17:16 05/25/22 05/25/22 05/25/22 06:59 14:59 22:59 Intake Total 1000 / 1000 Balance 1000 / 1000 Weight last 48 hrs Weight 91.626 kg Physical Exam Const: COMMON NORMALS: no acute distress and patient oriented x3 HENMT: COMMON NORMALS: normocephalic HEAD & SCALP: normocephalic Eye: COMMON NORMALS: Equal, round and reactive pupils present and EOMs intact bilaterally Neck/C-Spine: COMMON NORMALS: no JVD Resp: COMMON NORMALS: normal respiratory effort, No retractions, No use of accessory muscles and clear to auscultation bilaterally AUSCULTATION: clear to auscultation bilaterally Cardio: COMMON NORMALS: no JVD, regular rate, regular rhythm, S1 normal heart sound present and S2 normal heart sound present RATE: regular rate RHYTHM: regular rhythm HEART SOUNDS: S1 normal heart sound present and S2 normal heart sound present GI: COMMON NORMALS: Normal to inspection, nondistended, normoactive bowel soun ds present, Soft to palpation, non-tender, No hepatosplenomegaly present, no masses and no bruits PALPATION: Yes Soft to palpation and Yes No hepatosplenomegaly present Extremity: COMMON NORMALS: capillary refill normal, no clubbing, cyanosis or edema, no calf tenderness and no pedal edema Neuro: COMMON NORMALS: patient oriented x3 Psych: COMMON NORMALS: mental status grossly normal Skin: NARRATIVE SKIN EXAM: - On examination left foot, lateral aspect, superficial diabetic ulcer, healing well, good granulation tissue -On examination, gluteal cleft, stage II DTI, measuring 3 x 4 cm round, with drainage Data : 05/25/22 19:20 05/25/22 19:20 Micro: Microbiology 05/25/22 19:36 Blood Culture - Preliminary Blood SPECIMEN COLLECTED 05/25/22 19:33 Blood Culture - Preliminary Blood SPECIMEN COLLECTED A&P Assessment and plan (1) Cellulitis of gluteal region: Status: Acute (2) Diabetes type 2, uncontrolled: Status: Acute Qualifiers: Glycemic state: with hyperglycemia Qualified Code(s): E11.65 - Type 2 diabetes mellitus with hyperglycemia (3) Essential hypertension: Status: Acute (4) COPD (chronic obstructive pulmonary disease): Status: Acute (5) CAD (coronary artery disease): Status: Acute Qualifiers: Coronary Disease-Associated Artery/Lesion type: [place] artery [place] vs. transplanted heart: sioux heart Associated angina: without angina Qualified Code(s): I25.10 - Atherosclerotic heart disease of sioux coronary artery without angina pectoris (6) (HFpEF) heart failure with preserved ejection fraction: Status: Acute Plan Cellulitis of gluteal region CT scan 1. Continued 4.5 x 2.3 x 1.7 cm inflammation in the left paramedian subcutaneous fat at the level of S4 and S5 suggesting cellulitis versus fat necrosis versus contusion versus other etiology. Axial series 3, images 22-35. 2. No obvious abscess or soft tissue emphysema. -No falls, no injuries -Does report history of Crohn's disease, history of fistula Plan -Continue vancomycin, has a history of MRSA infections -Continue Primaxin and -N.p.o. -General surgery has been consulted for potential exploration -Continue aspirin -Brilinta on hold for potential surgical intervention -Lovenox on hold -SCDs for DVT prophylaxis Type 2 diabetes mellitus -Continue Lantus 10 units every morning -Low-dose sliding scale Chronic pain, continue Dilaudid History of seizures, continue Keppra CAD, -No chest pain complaints Cardiac cath 08/14 2021 1. Continued 4.5 x 2.3 x 1.7 cm inflammation in the left paramedian subcutaneous fat at the level of S4 and S5 suggesting cellulitis versus fat necrosis versus contusion versus other etiology. Axial series 3, images 22-35. 2. No obvious abscess or soft tissue emphysema. on aspirin, Brilinta, Imdur History of COPD History of CVA Attestations Medical Necessity Statement*: Patient requires hospitalization, due to cellulitis of gluteal region, DTI Coding Level of Care Code Acute [employer] Operator for [facility] Fwd Diagnoses Cellulitis of gluteal region L03.317 Diabetes type 2, uncontrolled E11.65 Glycemic state: with hyperglycemia Essential hypertension I10 COPD (chronic obstructive pulmonary disease) J44.9 CAD (coronary artery disease) I25.10 Coronary Disease-Associated Artery/Lesion type: [place] artery [place] vs. transplanted heart: sioux heart Associated angina: without angina (HFpEF) heart failure with preserved ejection fraction I50.30
[2022-05-25] MEDS: metroNIDAZOLE IV 500 MG/100 ML PREMIX 100 MG IV (21:41)
--- NOTE | 2022-05-25 21:42 | PC.NURSE ---
patient complaining of itching and redness to right arm up from the IV site where vancomycin was infusing. immediately stopped vancomycin and advised Dr. Boyd. Dr. Boyd ordered for it to be stopped and added to allergy list.
[2022-05-25 21:46] VITALS: BP 101/59; PULSE 86; RESP 16; O2SAT 94
--- NOTE | 2022-05-25 21:46 | PC.NURSE ---
patient in no acute distress at this time. will continue to monitor for any further reactions
[2022-05-25] MEDS: quetiapine 100 mg Tablet 200 MG PO (21:56)
[2022-05-25 22:42] LABS: Estmated Average Glucose 335; Hemoglobin A1C 13.3 % (4.0-6.0)
--- NOTE | 2022-05-25 23:08 | PC.PHAR ---
Pharmacokinetic dosing service Date: 05/25/22 Time: 2299 Objective: Patient: Mayra Ascencio Floor: ed-3 Age: 56 yo Serum creatinine: 0.8 mg/dL Height: 65.0 Inches Weight (kg): 91.62 Diagnosis: Relevant medical/social history: Cultures and sensitivities: Other labs: Assessment: IBW (kg): 57.00 Dosing wt(kg): 91.62 Estimated Creatinine clearance (ml/min): 72.3 CRCL method: Cockcroft and Gault using ibw(default). Drug selected: Vancomycin Loading dose (mg): 0 Vd (liters): 82.5 (factor used: 0.9 L/kg) Manuel (hr-1): 0.064 Half life (hrs): 10.83 Recommended dose: 1500 mg Interval: 12 hrs Infusion time (hrs): 1.5 Predicted peak (mcg/mL): 32.3 Predicted trough (mcg/mL): 16.50 Total body weight is being used for vancomycin dosing. Renal function is stable [ ] /unstable [ ] Recommendations: Give Vancomycin 1500 mg q 12 hrs with an expected Cpeak of 32.3 mcg/ml and an expected Ctrough of 16.50 mcg/ml Renal dosing of other antibiotics (review renal dosing of other medications and list guidelines here): Thank you for the consult, will continue to follow. Signature: Aura Cline [facility]
[2022-05-26] VITALS (35 sets, daily range): BP systolic 80–141; BP diastolic 41–93; PULSE 82–100; RESP 13–22; TEMP 36.4–36.8; O2SAT 92–100; BMI 33.6
--- NOTE | 2022-05-26 01:27 | PC.NURSE ---
patient requesting pain medication for buttock pain. Called and spoke with Dr. Ramirez and advised him of patient's condition and BP of systolic BP in 90's. verbal order for normal saline 500 mL bolus and hydromorphone 0.5 mg IVP once. Read back and verified.
[2022-05-26] MEDS: sodium chloride 0.9% 500 ML 999 ML IV (01:36)
[2022-05-26] MEDS: HYDROmorphone 1 mg/mL INJ 1 mL 0.5 MG IVP (01:50)
--- NOTE | 2022-05-26 04:39 | PC.NURSE ---
Called and spoke with Dr. Cruz about patient having surgery this morning and having PO medications ordered. Dr. Cruz stated to hold the PO medications at 0600 this morning.
--- NOTE | 2022-05-26 05:26 | PM.CONSULT ---
Providers/Reason For Consult Consulting Physician/Specialty*: Brett Crawford MD Reason for Consult*: Perirectal abscess Requesting Physician: Dr. Boyd Attending Physician: Kehinde Cruz MD History of Present Illness History of Present Illness Ms. Mayra Ascencio is a pleasant 56 year old female with multiple medical comorbidities in the form of insulin-dependent type 2 diabetes mellitus, chronic pain on Dilaudid, diabetic peripheral neuropathy, history of left foot diabetic ulcers, heart failure with preserved ejection fraction, CAD, on aspirin and Brilinta, COPD, CVA dyslipidemia, history of Crohn's disease, history of left foot diabetic ulcer who presents [facility] due to pain and drainage and a rash in her gluteal clefts. A CT of the pelvis was obtained that did show; 1. Continued 4.5 x 2.3 x 1.7 cm inflammation in the left paramedian subcutaneous fat at the level of S4 and S5 suggesting cellulitis versus fat necrosis versus contusion versus other etiology. Axial series 3, images 22-35. 2. No obvious abscess or soft tissue emphysema. ? Patient reports that she had this issue for about a week now, examination was done in the emergency department room 3 in the presence of female nursing staff stage set designer Review of Systems General: Reports: 10 or more systems reviewed and unremarkable except in HPI and below Medications/Allergies Home Medications Medication Instructions Recorded Confirmed Last Taken Type acetaminophen 325 mg tablet 650 mg PO Q6H PRN Mild/Mod Pain Or 10/16/20 05/24/22 04/21/21 Rx Temp >/= 101 #30 tabs evolocumab 140 mg/mL subcutaneous 140 mg SUBCUT .i59xyol #2 mL 03/05/22 05/24/22 Unknown Rx pen injector (Repatha SureClick) insulin detemir U-100 100 unit/mL 10 unit (0.1 mL) SUBCUT QAM #15 mL 03/05/22 05/24/22 05/17/22 Rx (3 mL) subcutaneous pen (Levemir FlexTouch U-100 Insulin) insulin lispro 100 unit/mL See Rx Instructions .Route 03/05/22 05/24/22 05/16/22 Rx subcutaneous pen (Humalog KwikPen .COMPLEX #15 mL (U-100) Insulin) losartan 50 mg tablet 50 mg PO DAILY@0800 #180 tabs 03/05/22 05/24/22 05/17/22 07:00 Rx pen needle, diabetic 31 gauge x #100 ea 03/05/22 05/24/22 Unknown Rx 5/16 (Comfort EZ Pen [place]) pen needle, diabetic 32 gauge x #100 ea 03/05/22 05/24/22 Unknown Rx 5/32 (Comfort EZ Pen [place]) ticagrelor 90 mg tablet (Brilinta) 90 mg PO BID@08, #180 tabs 03/05/22 05/24/22 05/17/22 07:00 Rx tiotropium bromide 18 mcg capsule 1 cap inhalation DAILY #30 03/05/22 05/24/22 05/17/22 07:00 Rx with inhalation device (Spiriva inhalations with HandiHaler) naloxone 4 mg/actuation nasal spray 4 mg intranasal Q2M PRN opioid 03/11/22 05/24/22 Unknown Rx overdose #2 ea pregabalin 150 mg capsule (Lyrica) 150 mg PO BID #60 caps 04/30/22 05/24/22 05/17/22 07:00 Rx hydromorphone 2 mg tablet 2 mg PO Q8H 30 days #90 tabs 05/03/22 05/24/22 05/17/22 07:00 Rx 2 TABS albuterol sulfate 2.5 mg inhalation Q4H PRN 05/17/22 05/24/22 Unknown History Shortness Of Breath albuterol sulfate 90 mcg/actuation 1 puff inhalation Q6H PRN 05/17/22 05/24/22 Unknown History aerosol inhaler Shortness Of Breath aspirin 81 mg tablet,delayed 81 mg PO QAM 05/17/22 05/24/22 05/17/22 07:00 History release (Adult Aspirin Regimen) atorvastatin 80 mg tablet 80 mg PO QAM 05/17/22 05/24/22 05/17/22 07:00 History duloxetine 60 mg capsule,delayed 60 mg PO QAM 05/17/22 05/24/22 05/17/22 07:00 History release isosorbide mononitrate 60 mg 60 mg PO QAM 05/17/22 05/24/22 05/17/22 History tablet,extended release 24 hr levetiracetam 500 mg tablet 500 mg PO BID 05/17/22 05/24/22 05/17/22 07:00 History metoprolol succinate 25 mg 25 mg PO QAM 05/17/22 05/24/22 05/17/22 History tablet,extended release 24 hr nitroglycerin 0.4 mg sublingual 0.4 mg sublingual Q5M PRN Chest 05/17/22 05/24/22 Unknown History tablet (Nitrostat) Pain oxybutynin chloride 5 mg 5 mg PO QAM 05/17/22 05/24/22 05/17/22 History tablet,extended release 24 hr pantoprazole 40 mg tablet,delayed 40 mg PO QAM 05/17/22 05/24/22 05/17/22 History release quetiapine 200 mg tablet 200 mg PO BEDTIME 05/17/22 05/24/22 05/16/22 History cefadroxil 500 mg capsule 500 mg PO BID #14 caps 05/18/22 05/24/22 Unknown Rx furosemide 40 mg tablet 40 mg PO DAILY PRN Edema #30 tabs 05/19/22 05/24/22 Unknown Rx cyclobenzaprine 10 mg tablet 10 mg PO TID PRN muscle spasm 30 05/25/22 Unknown Rx days #90 tabs semaglutide 3 mg tablet (Rybelsus) 3 mg PO QAM #30 tabs 05/25/22 Unknown Rx Allergies Allergy/AdvReac Type Severity Reaction Status Date / Time fentanyl Allergy Unknown ALGY-Difficulty Verified 05/26/22 05:37 Breathing adhesive Allergy Unknown Verified 05/26/22 05:37 clindamycin Allergy ADR-Itching Verified 05/26/22 05:37 codeine Allergy Unknown Verified 05/26/22 05:37 hydrocodone Allergy Unknown Verified 05/26/22 05:37 latex Allergy ALGY-Swell Verified 05/26/22 05:37 Lip/Tongue/Throat naproxen [From Naprosyn] Allergy Unknown Verified 05/26/22 05:37 nut - unspecified Allergy ALGY-Anaphy Verified 05/26/22 05:37 laxis oxycodone [From Roxicodone] Allergy ADR-Muscle Verified 05/26/22 05:37 Pain Penicillins Allergy Unknown Verified 05/26/22 05:37 sulfamethoxazole Allergy ADR-Migrain Verified 05/26/22 05:37 [From Bactrim] e trimethoprim [From Bactrim] Allergy ADR-Migrain Verified 05/26/22 05:37 e vancomycin Allergy ALGY-Rash Verified 05/26/22 05:37 Current Medications Generic Name Dose Route Start Last Admin Trade Name Srinivas PRN Reason Stop Dose Admin Aspirin 81 mg 05/26/22 06:00 05/26/22 05:00 Aspirin 81 Mg Ec Tablet PO Not Given QAM [facility] Atorvastatin Calcium 80 mg 05/26/22 06:00 05/26/22 05:00 Atorvastatin 40 Mg Tablet PO Not Given QAM [facility] Duloxetine HCl 60 mg 05/26/22 06:00 05/26/22 05:00 Duloxetine 60 Mg Capsule PO Not Given QAM [facility] Isosorbide Mononitrate 60 mg 05/26/22 06:00 05/26/22 05:00 Isosorbide Mononitrate Er 60 Mg Tablet PO Not Given QAM [facility] Metoprolol Succinate 25 mg 05/26/22 06:00 05/26/22 05:00 Metoprolol Succinate Er (24 Hr) 25 Mg Tablet PO Not Given QAM [facility] Oxybutynin Chloride 5 mg 05/26/22 06:00 05/26/22 05:00 Oxybutynin Chloride Xl 5 Mg Tablet PO Not Given QAM [facility] Pantoprazole Sodium 40 mg 05/26/22 06:00 05/26/22 05:[address] 40 Mg Tablet PO Not Given QAM [facility] Quetiapine Fumarate 200 mg 05/25/22 21:45 05/25/22 21:56 Quetiapine 100 Mg Tablet PO 200 mg BEDTIME YUSUF Administration PFSH Acute PFSH: Medical History (HFpEF) heart failure with preserved ejection fraction Abnormal stress test Acute and chronic respiratory failure with hypoxia Acute exacerbation of CHF (congestive heart failure) Acute hypoxemic respiratory failure Acute kidney injury Anemia CAD (coronary artery disease) Candidiasis of vagina Carpal tunnel syndrome, right Chest pain Chest pain, midsternal Chronic knee pain Chronic left-sided low back pain Chronic obstructive pulmonary disease, unspecified Chronic pain of left knee Compression fracture of L2 lumbar vertebra COPD (chronic obstructive pulmonary disease) COPD exacerbation Coronary artery disease due to type 2 diabetes mellitus Current every day smoker CVA (cerebral vascular accident) Dehydration Demand ischemia Diabetes type 2, uncontrolled Diabetic foot ulcer Dyslipidemia Dyspnea Elevated troponin Encounter for long-term opiate analgesic use Essential hypertension Exposure to COVID-19 virus Fall Fall Fibromyalgia, primary History of CVA (cerebrovascular accident) History of hypoglycemic coma Hoarseness of voice Hyperlipidemia, mixed Hypoxemia Insomnia Intervertebral disc disorder of lumbar region with myelopathy Leukocytosis Low back pain radiating to both legs Lumbosacral spondylosis without myelopathy Needs flu shot Neuropathy NSTEMI (non-ST elevated myocardial infarction) Thought to be secondary to plaque rupture. Angiogram July 04 no flow-limiting lesions, or restenosis of previous stent from April 2020 Numbness and tingling in both hands Obesity (BMI 35.0-39.9 without comorbidity) Opioid contract exists Osteoarthritis of left knee Osteoarthritis of spine at multiple levels Pericardial effusion Peripheral sensory neuropathy due to type 2 diabetes mellitus Pneumonia Pneumonia Pressure ulcer Prosthetic joint infection Right arm weakness Right hip pain Seizure Seizures Sepsis Septic arthritis of knee, left Stenosis of left internal carotid artery with cerebral infarction Syncope Type 2 diabetes mellitus with diabetic autonomic (poly)neuropathy Unstable angina Urinary incontinence Urinary tract infection UTI (urinary tract infection) Vitamin D deficiency Surgical History History of arthroscopic surgery of elbow BILATERAL History of coronary angiogram Angiogram April 2020 with 90% circumflex lesion, drug-eluting stent placed by Dr. Jerome S/p bilateral carpal tunnel release S/P hysterectomy S/P knee surgery RIGHT S/P lumbar fusion DR. Shreya ZAYAS IN [place], [place] L4-L5, L5-S1 Status post left knee replacement Status post lumbar laminectomy Family History Other CAD (coronary artery disease) Cancer Diabetes Social History Smoking and tobacco status: current every day smoker cigarettes Packs smoked per day: 0.5 [ Other cigarette details: PER PATIENT REPORT] Smoking risk assessment/counseling performed?: Yes Alcohol intake: former Desire information about alcohol rehabilitation?: No Counseling given: No Desire information about substance/drug rehabilitation?: No Counseling given: No Caregiver/support person: No Lives independently: Yes Household members: family and other Details: son Housing: Manufactured/Mobile home Marital status: Unknown Marital status details: She and son state she is not service: No Current occupational status: unemployed Pets and animals: Yes History of recent travel: No Current gender identity: Female Vitals/I&O/Wt Last Vital Signs Temp 98 F 05/25/22 17:16 Pulse 89 05/26/22 04:27 Resp 18 05/26/22 04:27 BP 141/93 05/26/22 04:27 Pulse Ox 94 05/26/22 04:27 O2 Del Method 05/26/22 04:27 05/25/22 05/25/22 05/26/22 14:59 22:59 06:59 Intake Total 1137.5 / 1137.5 Balance 1137.5 / 1137.5 Weight last 48 hrs Weight 202 lb Physical Exam Narrative: Patient is conscious alert oriented X3 No apparent distress BMI 34 Head and neck examination PERRLA no masses no cervical lymphadenopathy no jaundice Cardiac examination audible S1-S2 no murmurs no gallops no arrhythmias Chest is clear bilateral,abscence of Rhonchi or wheezes,no surgical emphysema Abdomen nontender nondistended soft no organomegaly guarding or rigidity/no signs of peritonitis Extremities no cyanosis no clubbing no edema Physical examination was done in the presence of female stage set designer nursing staff Presence of pressure injury ulcer on the sacral area in the form of a butterfly appearance, roughly 10 x 5 x 01 cm yet on the left buttock area unstageable and on the right buttock area stage I. Data : 05/25/22 19:20 05/25/22 19:20 Micro: Microbiology 05/25/22 19:36 Blood Culture - Preliminary Blood SPECIMEN COLLECTED 05/25/22 19:33 Blood Culture - Preliminary Blood SPECIMEN COLLECTED A&P Assessment and plan (1) Sacral pressure ulcer: After thorough history physical examination and reviewing the chart and images with my personal interpretation. Patient developed a pressure injury ulcer, she reports that she has been ambulatory. Will require surgical debridement in the OR. Currently the patient is on Brilinta for her cardiac condition and certainly she would be at higher risk of bleeding I did debt and budget counselor the patient for surgical debridement in the OR were indications, risks, benefits and alternative were all discussed with the patient and she did agree to proceed accordingly. Patient understands that she may require longer term wound care. Informed consent per chart Assurance and education All questions have been answered and all concerns have been addressed to patient's satisfaction. Status: Acute Consult Attestations Medical Necessity Statement: Per admitting service Coding Level of Care Code Acute Senior Sales Assistant for Chg Fwd Diagnoses Sacral pressure ulcer L89.159
[2022-05-26 05:30] LABS: Glucose Point of Care 316 mg/dL (70-110)
--- NOTE | 2022-05-26 06:20 | ANES.PREANE2 ---
Pre-Anesthetic Assessment Height/Weight: Height 1.65 m Weight 91.626 kg Temp Pulse Resp BP Pulse Ox O2 Del Method 98 F 89 18 141/93 94 05/25/22 17:16 05/26/22 04:27 05/26/22 04:27 05/26/22 04:27 05/26/22 04:27 05/26/22 04:27 Preop Diagnosis: Pressure injury ulcer Operation Date: 05/26/22 07:00 Proposed Procedures p Incision And Drainage Sacral Decub(Not Applicable) - Brett Crawford MD Familial anesthetic complications: none Was Beta Jose L taken within 24 hours: Yes Last intake: Intake Last Liquid Date 05/25/22 Last Liquid Time 20:00 Last Solid Date 05/25/22 Last Solid Time 20:00 Social Tobacco and No alcohol .5 pack(s) per day Exam alert, oriented x 3, clear to auscultation bilaterally and regular rate & rhythm Airway Submandibular: within normal limits Cervical ROM: within normal limits Mallampati: Class III Dentition: false Pulmonary Chronic Obstructive Pulmonary Disease Use home O2 2 LPM NC Chronic respiratory failure w/ hypoxia CV/HEM Anemia, Coronary Artery Disease (7 stents, denies cardiac surgery hx ), Congestive Heart Failure, Hypertension, Myocardial Infarction and Peripheral Vascular Disease States can ascend a flight of stairs w/o CP From cardiology note (Romeo) 05/03/22 She was found to have mid LCx? 90% stenotic lesion that was treated with balloon angioplasty followed by single drug-eluting stent.? She has h/o labile hypertension and was on antihypertensives as well as low dose midodrine.? Patient has 2 L of oxygen that she uses at home.?Patient was admitted for management of hospital-acquired pneumonia in 08/2021. MRSA nares PCR positive, urine culture grew E. coli. She had right arm weakness and CTA head and neck showed 70% stenosis of left internal carotid. MRI brain did not show any acute ischemic event. Date of Service: 05/20/21 Procedure(s): CT angio chest PE protcl [id number] IMPRESSION: 1. Severe fatty infiltration of the liver. 2. Severe calcified coronary artery disease. 3. No pulmonary embolus or aortic dissection. Date of Service: 02/05/21 Procedure(s): Sestamibi Stress Test Request CONCLUSION: Please note due to baseline abnormality of the EKG specificity and sensitivity of the EKG portion of LexiScan MIBI stress test will be low 1.? EKG not suggestive of ischemia 2.? Lexiscan injection unremarkable. 3.? Perfusion scan will be documented separately. Electronically Signed On 03-03-2021 19:59:12 CDT by CRISTHIAN JEROME Date of Service: 02/05/21 Procedure(s): NM jb perf SPECT r/s* [id number] ?IMPRESSIONS ?Myocardial perfusion imaging is normal and low probability of obstructive ?coronary artery disease. TID ratio is elevated which could be secondary left ?ventricle hypertrophy/subendocardial ischemia in the absence of other parameters. ?Cristhian Jerome MD ? (Electronically Signed) Coronary angiogram (08/14/2021) Diagnostic Cath Status: ? ? Elective Diagnostic Findings ? * Left Main has no disease. ? * Left Anterior Descending has no disease. ? * Right Coronary Artery has no disease. ? * Proximal Circumflex to Mid Circumflex: severe? 90% stenosis, USAMA: 3 flow. ? * Coronary angiography shows right dominance. PCI Status: ? ? Elective Interventional Findings ? * Proximal Circumflex to Mid Circumflex:? 90% stenosis treated with a Drug Eluting Stent. 0% residual stenosis, USAMA: 3 flow. ?12/29/20 Procedure(s): CV echo complete* [id number] CONCLUSIONS ?Normal left ventricular size and systolic function, EF 70 %. ?No regional wall motion abnormalities. ?Small to moderate pericardial effusion. ?No echocardiographic evidence of tamponade ?Thickened noncoronary cusp of the aortic valve. ?Minimally thickened mitral valve. ?There are no intracardiac masses. ?No previous study is available for comparison. ?07/04/20 Coronary Angiogram Conclusions There is moderate coronary artery disease with one vessel disease. Reason for angiogram: Non-ST relation FL#1 Left main is normal#2 LAD has luminal irregularity without significant stenosis.? Diagonal branches luminal irregularities with ostial 40% stenosis#3 LCx has luminal irregularities with patent prior stent distal to the stent there is 60% stenosis which does not appear to be significant.#4 RCA is small caliber nondominant vessel with luminal irregularities with. TTE 09/06 CONCLUSIONS ?1-Normal left ventricular cavity size. Normal left ventricular ?systolic function. No regional wall motion abnormalities. Left ?ventricular ejection fraction is estimated at 56 %. Normal ?diastolic function. ?2-Moderate aortic valve calcification. No aortic valve stenosis. ?Trace aortic valve regurgitation. ?3-Trace tricuspid valve regurgitation. ?4-There is no pericardial effusion. ?5-Right atrial pressure is around 5 mm of mercury. ?6-When compared to prior echocardiogram dated 29 December 2020 ?there is no significant change Na 132 GI Denies GERD Metabolic Diabetes Mellitus and Hyperlipidemia Obesity Musc/skel Lower Back Pain and Osteoarthritis/DJD Diabetic ulcers DDD Neuropsych Neuropathy (Peripheral sensory neuropathy ) and Seizure (Last seizure 2 weeks ago ) Anesthetic Plan ASA status: 4 Anesthesia: Anesthesia Evaluation, General and MAC Other: We discussed risk and benefits of general anesthesia including PONV, sore throat (sometimes severe), corneal abrasion, positioning and peripheral nerve injuries, life threatening allergic reaction, post operative ICU admission requiring prolonged intubation, aspiration, stroke, heart attack, , and rare incidences of recall. I discussed with the patient risks, goals, and benefits of MAC and general anesthesia. We discussed spectrum of MAC anesthesia including conversion to general as well as possibility of recall of intraoperative stimuli including discomfort/pain. Patient consents to MAC or General pending further discussion with surgeon. Risk of > 500 ml blood loss (7ml/kg in children): No Other Pertinent Information Vancomycin @ 2141 05/25/22 Cefepime @ 211405/25/22 Medications/Allergies Home Medications Medication Instructions Recorded Confirmed Last Taken Type acetaminophen 325 mg tablet 650 mg PO Q6H PRN Mild/Mod Pain Or 10/16/20 05/24/22 04/21/21 Rx Temp >/= 101 #30 tabs evolocumab 140 mg/mL subcutaneous 140 mg SUBCUT .[id number] #2 mL 03/05/22 05/24/22 Unknown Rx pen injector (Repatha SureClick) insulin detemir U-100 100 unit/mL 10 unit (0.1 mL) SUBCUT QAM #15 mL 03/05/22 05/24/22 05/17/22 Rx (3 mL) subcutaneous pen (Levemir FlexTouch U-100 Insulin) insulin lispro 100 unit/mL See Rx Instructions .Route 03/05/22 05/24/22 05/16/22 Rx subcutaneous pen (Humalog KwikPen .COMPLEX #15 mL (U-100) Insulin) losartan 50 mg tablet 50 mg PO DAILY@0800 #180 tabs 03/05/22 05/24/22 05/17/22 07:00 Rx pen needle, diabetic 31 gauge x #100 ea 03/05/22 05/24/22 Unknown Rx 5/16 (Comfort EZ Pen [place]) pen needle, diabetic 32 gauge x #100 ea 03/05/22 05/24/22 Unknown Rx 5/32 (Comfort EZ Pen [place]) ticagrelor 90 mg tablet (Brilinta) 90 mg PO BID@ #180 tabs 03/05/22 05/24/22 05/17/22 07:00 Rx tiotropium bromide 18 mcg capsule 1 cap inhalation DAILY #30 03/05/22 05/24/22 05/17/22 07:00 Rx with inhalation device (Spiriva inhalations with HandiHaler) naloxone 4 mg/actuation nasal spray 4 mg intranasal Q2M PRN opioid 03/11/22 05/24/22 Unknown Rx overdose #2 ea pregabalin 150 mg capsule (Lyrica) 150 mg PO BID #60 caps 04/30/22 05/24/22 05/17/22 07:00 Rx hydromorphone 2 mg tablet 2 mg PO Q8H 30 days #90 tabs 05/03/22 05/24/22 05/17/22 07:00 Rx 2 TABS albuterol sulfate 2.5 mg inhalation Q4H PRN 05/17/22 05/24/22 Unknown History Shortness Of Breath albuterol sulfate 90 mcg/actuation 1 puff inhalation Q6H PRN 05/17/22 05/24/22 Unknown History aerosol inhaler Shortness Of Breath aspirin 81 mg tablet,delayed 81 mg PO QAM 05/17/22 05/24/22 05/17/22 07:00 History release (Adult Aspirin Regimen) atorvastatin 80 mg tablet 80 mg PO QAM 05/17/22 05/24/22 05/17/22 07:00 History duloxetine 60 mg capsule,delayed 60 mg PO QAM 05/17/22 05/24/22 05/17/22 07:00 History release isosorbide mononitrate 60 mg 60 mg PO QAM 05/17/22 05/24/22 05/17/22 History tablet,extended release 24 hr levetiracetam 500 mg tablet 500 mg PO BID 05/17/22 05/24/22 05/17/22 07:00 History metoprolol succinate 25 mg 25 mg PO QAM 05/17/22 05/24/22 05/17/22 History tablet,extended release 24 hr nitroglycerin 0.4 mg sublingual 0.4 mg sublingual Q5M PRN Chest 05/17/22 05/24/22 Unknown History tablet (Nitrostat) Pain oxybutynin chloride 5 mg 5 mg PO QAM 05/17/22 05/24/22 05/17/22 History tablet,extended release 24 hr pantoprazole 40 mg tablet,delayed 40 mg PO QAM 05/17/22 05/24/22 05/17/22 History release quetiapine 200 mg tablet 200 mg PO BEDTIME 05/17/22 05/24/22 05/16/22 History cefadroxil 500 mg capsule 500 mg PO BID #14 caps 05/18/22 05/24/22 Unknown Rx furosemide 40 mg tablet 40 mg PO DAILY PRN Edema #30 tabs 05/19/22 05/24/22 Unknown Rx cyclobenzaprine 10 mg tablet 10 mg PO TID PRN muscle spasm 30 05/25/22 Unknown Rx days #90 tabs semaglutide 3 mg tablet (Rybelsus) 3 mg PO QAM #30 tabs 05/25/22 Unknown Rx Allergies Allergy/AdvReac Type Severity Reaction Status Date / Time fentanyl Allergy Unknown ALGY-Difficulty Verified 05/26/22 05:37 Breathing adhesive Allergy Unknown Verified 05/26/22 05:37 clindamycin Allergy ADR-Itching Verified 05/26/22 05:37 codeine Allergy Unknown Verified 05/26/22 05:37 hydrocodone Allergy Unknown Verified 05/26/22 05:37 latex Allergy ALGY-Swell Verified 05/26/22 05:37 Lip/Tongue/Throat naproxen [From Naprosyn] Allergy Unknown Verified 05/26/22 05:37 nut - unspecified Allergy ALGY-Anaphy Verified 05/26/22 05:37 laxis oxycodone [From Roxicodone] Allergy ADR-Muscle Verified 05/26/22 05:37 Pain Penicillins Allergy Unknown Verified 05/26/22 05:37 sulfamethoxazole Allergy ADR-Migrain Verified 05/26/22 05:37 [From Bactrim] e trimethoprim [From Bactrim] Allergy ADR-Migrain Verified 05/26/22 05:37 e vancomycin Allergy ALGY-Rash Verified 05/26/22 05:37 Current Medications Generic Name Dose Route Start Last Admin Trade Name Srinivas PRN Reason Stop Dose Admin Aspirin 81 mg 05/26/22 06:00 05/26/22 05:00 Aspirin 81 Mg Ec Tablet PO Not Given QAM [facility] Atorvastatin Calcium 80 mg 05/26/22 06:00 05/26/22 05:00 Atorvastatin 40 Mg Tablet PO Not Given QAM [facility] Duloxetine HCl 60 mg 05/26/22 06:00 05/26/22 05:00 Duloxetine 60 Mg Capsule PO Not Given QAM [facility] Insulin Detemir 10 unit 05/26/22 06:00 05/26/22 05:40 Insulin Detemir 100 Units/1 Ml SUBCUT 10 unit QAM [facility] Administration Isosorbide Mononitrate 60 mg 05/26/22 06:00 05/26/22 05:00 Isosorbide Mononitrate Er 60 Mg Tablet PO Not Given QAM [facility] Metoprolol Succinate 25 mg 05/26/22 06:00 05/26/22 05:00 Metoprolol Succinate Er (24 Hr) 25 Mg Tablet PO Not Given QAM [facility] Oxybutynin Chloride 5 mg 05/26/22 06:00 05/26/22 05:00 Oxybutynin Chloride Xl 5 Mg Tablet PO Not Given QAM [facility] Pantoprazole Sodium 40 mg 05/26/22 06:00 05/26/22 05:[address] 40 Mg Tablet PO Not Given QAM [facility] Quetiapine Fumarate 200 mg 05/25/22 21:45 05/25/22 21:56 Quetiapine 100 Mg Tablet PO 200 mg BEDTIME [facility] Administration [facility] Anesthesia Medical History (HFpEF) heart failure with preserved ejection fraction Abnormal stress test Acute and chronic respiratory failure with hypoxia Acute exacerbation of CHF (congestive heart failure) Acute hypoxemic respiratory failure Acute kidney injury Anemia CAD (coronary artery disease) Candidiasis of vagina Carpal tunnel syndrome, right Chest pain Chest pain, midsternal Chronic knee pain Chronic left-sided low back pain Chronic obstructive pulmonary disease, unspecified Chronic pain of left knee Compression fracture of L2 lumbar vertebra COPD (chronic obstructive pulmonary disease) COPD exacerbation Coronary artery disease due to type 2 diabetes mellitus Current every day smoker CVA (cerebral vascular accident) Dehydration Demand ischemia Diabetes type 2, uncontrolled Diabetic foot ulcer Dyslipidemia Dyspnea Elevated troponin Encounter for long-term opiate analgesic use Essential hypertension Exposure to COVID-19 virus Fall Fall Fibromyalgia, primary History of CVA (cerebrovascular accident) History of hypoglycemic coma Hoarseness of voice Hyperlipidemia, mixed Hypoxemia Insomnia Intervertebral disc disorder of lumbar region with myelopathy Leukocytosis Low back pain radiating to both legs Lumbosacral spondylosis without myelopathy Needs flu shot Neuropathy NSTEMI (non-ST elevated myocardial infarction) Thought to be secondary to plaque rupture. Angiogram July 04 no flow-limiting lesions, or restenosis of previous stent from April 2020 Numbness and tingling in both hands Obesity (BMI 35.0-39.9 without comorbidity) Opioid contract exists Osteoarthritis of left knee Osteoarthritis of spine at multiple levels Pericardial effusion Peripheral sensory neuropathy due to type 2 diabetes mellitus Pneumonia Pneumonia Pressure ulcer Prosthetic joint infection Right arm weakness Right hip pain Seizure Seizures Sepsis Septic arthritis of knee, left Stenosis of left internal carotid artery with cerebral infarction Syncope Type 2 diabetes mellitus with diabetic autonomic (poly)neuropathy Unstable angina Urinary incontinence Urinary tract infection UTI (urinary tract infection) Vitamin D deficiency Surgical History History of arthroscopic surgery of elbow BILATERAL History of coronary angiogram Angiogram April 2020 with 90% circumflex lesion, drug-eluting stent placed by Dr. Jerome S/p bilateral carpal tunnel release S/P hysterectomy S/P knee surgery RIGHT S/P lumbar fusion DR. Shreya ZAYAS IN [place], [place] L4-L5, L5-S1 Status post left knee replacement Status post lumbar laminectomy Family History Other CAD (coronary artery disease) Cancer Diabetes Social History Smoking and tobacco status: current every day smoker cigarettes Packs smoked per day: 0.5 [ Other cigarette details: PER PATIENT REPORT] Smoking risk assessment/counseling performed?: Yes Alcohol intake: former Desire information about alcohol rehabilitation?: No Counseling given: No Desire information about substance/drug rehabilitation?: No Counseling given: No Caregiver/support person: No Lives independently: Yes Household members: family and other Details: son Housing: Manufactured/Mobile home Marital status: Unknown Marital status details: She and son state she is not service: No Current occupational status: unemployed Pets and animals: Yes History of recent travel: No Current gender identity: Female Data Anesthesia : 05/25/22 19:20 05/25/22 19:20 Short CBC 05/25/22 Range/Units 19:20 WBC 15.2 H (4.0-10.0) 10^3/uL Hgb 11.3 L (11.5-15.3) g/dL Hct 37.8 (37.0-47.0) % MCV 70.3 L (81-99) fl Plt Count 668 H (130-400) 10^3/cmm BMP 05/25/22 19:20 Sodium 132 L Potassium 4.7 Chloride 95 L Carbon Dioxide 23 BUN 17 Creatinine 0.8 Glucose 355 H Calcium 9.5 Coags 05/25/22 05/25/22 05/25/22 19:20 19:20 19:53 ESR 38 H PT 13.60 INR 1.01 APTT 36.9 H C-Reactive Protein 3.9 Microbiology 05/25/22 19:36 Blood Culture - Preliminary Blood SPECIMEN COLLECTED 05/25/22 19:33 Blood Culture - Preliminary Blood SPECIMEN COLLECTED Cardiac Studies: Echocardiogram 09/13/21 Echocardiogram Limited Views 10/02/20 Echocardiogram Ultrasound 12/29/20 Sestamibi Stress Test (Cardiology) 06/12/21
[2022-05-26 06:30] LABS: Glucose Point of Care 337 mg/dL (70-110)
[2022-05-26] MEDS: insulin regular-human 100 units/1 mL 10 UNIT IVP (06:42)
[2022-05-26] MEDS: sodium chloride 0.9% 1,000 ML 30 ML IV (06:42)
[2022-05-26] MEDS: acetaminophen 1,000 MG/100 ML PIGGYBACK 400 MG IV (06:43)
[2022-05-26] MEDS: cefepime 1,000 MG in sodium chloride 0.9% (plus) 50 ML 100 MG IV (07:10)
[2022-05-26] MEDS: lidocaine 2% INJ 20 mL INJECTION (07:20)
--- NOTE | 2022-05-26 07:35 | PM.OP ---
Operative Report Date of procedure: May 26, 2022 Pre-op diagnosis: Preop Diagnosis Pressure injury ulcer Post-op diagnosis: The same Procedure done: Excisional and sharp debridement of pressure injury ulcer Specimens removed/disposition: Tissues for culture and sensitivity Surgeon: Brett Crawford MD Solutions Engineer: Malia Malone Circulating nurse Valerie Anesthesia: MAC (Dr. Yanez) Estimated blood loss (mL): 5 Procedure: After identifying the patient holding area,patient was then taken to the operative suite,was placed in supine position then right lateral position, all pressure points were padded and patient was appropriately secured to the bed., IV antibiotics were given per protocol,IV propofol was infused by the anesthesia provider, prep and drape of the periwound region over the lower back and upper thighs. Was done under the usual sterile technique. Time-out was done verifying the patient's name/date of /planned procedure and destination after the procedure, all were in agreement. Started by excising and debriding sharply the unhealthy necrotic indurated tissues of the wound using 11 and 15 blade knife alternatively, central necrotic tissues were appreciated that they were excised and sent for cultures and sensitivities. Incision was created at the skin level and went all the way down to the subcutaneous tissues particularly on the left gluteal area. PreDebridement measurements 10 x 5 cmx 0.1cm of the whole sacral ulcer PostDebridement measurements 11 x [address] to the subcutaneous layer Appropriate hemostasis using Bovie cauterization that was completed by placement of Surgicel, packing of the wound was done with Xeroform and lidocaine 2%, followed by piece of , ABDs, and surgical pants. Patient tolerated the procedure well, count of instruments, needle and sponges were completed at the end of the procedure. Patient was then taken to the recovery area in stable condition. I was present for the whole entire procedure
[2022-05-26 08:05] LABS: Glucose Point of Care 307 mg/dL (70-110)
[2022-05-26] MEDS: insulin regular-human 100 units/1 mL 10 UNIT SUBCUT (08:12)
--- NOTE | 2022-05-26 08:32 | PC.NURSE ---
0812 Dr Saavedra oked regular insulin be given SubQ instead of IV. Mwdication admimistered
--- NOTE | 2022-05-26 08:46 | PC.NURSE ---
0750 Dr. Crawford updated on low BP. Patient lying on side. Repositioned
--- NOTE | 2022-05-26 09:03 | SUR.EXTENDED ---
0903-Dilaudid 2mg was given PO. Tablet was 4mg, split in half. 2mg disposed properly. Witnessed by Kelsey Ley RN
--- NOTE | 2022-05-26 09:08 | SUR.EXTENDED ---
0908-Patient resting, no complaints of nausea, pain treated with PO med. VS within normal range based on pre-op vitals. No fever. Drinking sprite, repositioned for comfort.
--- NOTE | 2022-05-26 10:50 | SUR.EXTENDED ---
1050-Assisted patient to ambulate to bathroom. Patient did well.
[2022-05-26 10:53] LABS: Basophils # 0.1 10^3/uL (0.0-0.1); Basophils % 0.8 %; Eosinophils # 1.3 10^3/uL (0.0-0.8); Eosinophils % 7.2 %; Hematocrit 34.4 % (37.0-47.0); Hemoglobin 10.4 g/dL (11.5-15.3); Lymphocytes # 3.2 10^3/uL (0.8-4.8); Lymphocytes % 17.8 %; Mean Corpuscular HGB Conc 30.2 g/dL (30.0-36.0); Mean Corpuscular Hemoglobin 21.6 pg (28.0-34.0); Mean Corpuscular Volume 71.4 fl (81-99); Mean Platelet Volume 9.3 fL (7.4-10.4); Monocytes % 5.3 %; Neutrophils # 12.23 10^3/uL (1.8-7.7); Neutrophils % 68.1 %; Nucleated Red Blood Cells % 0 %; Platelet Count 567 10^3/cmm (130-400); Red Blood Count 4.82 10^6/uL (4.1-5.3); Red Cell Distribution Width 18.4 % (12.1-15.1)
[2022-05-26 11:01] LABS: INR 1.01 (0.8-1.2)
--- NOTE | 2022-05-26 11:06 | SUR.EXTENDED ---
1106-report called to gilberto on [facility]. patient to be admitted to [facility]-. Room is getting cleaned now should be ready in 20 min. Agreed to take patient up to [facility] at 11:30
[2022-05-26 11:15] LABS: Alanine Aminotransferase 8 U/L (0-33); Albumin Level 3.1 g/dL (3.5-5.2); Alkaline Phosphatase 99 IU/L (35-105); Anion Gap 12.3 (5-19); Aspartate Amino Transferase 10 U/L (0-32); Blood Urea Nitrogen 11 mg/dL (6-20); C Reactive Protein 7.4 mg/L (0.0-4.9); Calcium 8.5 mg/dL (8.5-10.5); Carbon Dioxide 24 mmol/L (22-29); Chloride 109 mmol/L (98-107); Globulin 2.9 g/dL (1.3-4.6); Glomerular Filtration Rate 128.6 mL/min (90-130); Glucose 221 mg/dL (65-115); Magnesium 1.7 mg/dL (1.7-2.3); Osmolality Calculated 298 mOsm/kg (285-295); Phosphorus 3.5 mg/dL (2.5-4.5); Potassium 4.3 mmol/L (3.5-5.1); Sodium 141 mmol/L (136-145); Total Bilirubin 0.2 mg/dL (0.15-1.2)
[2022-05-26 11:40] LABS: NT Pro B Type Natriuretic Pept 73 pg/mL (0-125); Procalcitonin 0.03 ng/mL (0-0.5)
--- NOTE | 2022-05-26 12:37 | PC.PHAR ---
pts alirio cross verified pts medications [phone]
[2022-05-26 12:52] LABS: Glucose Point of Care 263 mg/dL (70-110)
[2022-05-26] MEDS: insulin lispro 100 unit/1 mL SUBCUT ×2 (13:01→17:19)
--- NOTE | 2022-05-26 13:24 | PM.PN ---
Subjective Subjective: Status post debridement Dimensions 11 x [address] down to subcutaneous layer Vitals/I&O/Wt Last Vital Signs Temp 97.6 F 05/26/22 12:05 Pulse 83 05/26/22 12:05 Resp 16 05/26/22 12:05 BP 96/54 05/26/22 12:05 Pulse Ox 92 05/26/22 12:05 O2 Del Method 05/26/22 12:05 O2 Flow Rate 2 05/26/22 10:30 05/25/22 05/26/22 05/26/22 22:59 06:59 14:59 Intake Total 1137.5 / 1137.5 1700 / 2837.5 Output Total Balance 1137.5 / 1137.5 1700 / 2837.5 Weight last 48 hrs Weight 91.626 kg Physical Exam Narrative: Sacral ulcer 11 x 6 x 0.3 status post debridement Left buttocks unstageable ulcer Right buttocks sacral ulcer stage I Obese female Awake and alert Currently on room air Soft abdomen no rigidity guarding or tenderness Data : 05/26/22 10:35 05/26/22 10:35 Micro: Microbiology 05/25/22 19:36 Blood Culture - Preliminary Blood SPECIMEN COLLECTED 05/25/22 19:33 Blood Culture - Preliminary Blood SPECIMEN COLLECTED A&P Assessment and plan (1) Sacral pressure ulcer: Status: Acute (2) Essential hypertension: Status: Acute (3) CAD (coronary artery disease): Status: Acute Qualifiers: Associated angina: without angina Coronary Disease-Associated Artery/Lesion type: [place] artery [place] vs. transplanted heart: [place] heart Qualified Code(s): I25.10 - Atherosclerotic heart disease of [place] coronary artery without angina pectoris (4) COPD (chronic obstructive pulmonary disease): Status: Acute (5) (HFpEF) heart failure with preserved ejection fraction: Status: Acute (6) Cellulitis of gluteal region: Status: Acute (7) Diabetes type 2, uncontrolled: Status: Acute Qualifiers: Glycemic state: with hyperglycemia Qualified Code(s): E11.65 - Type 2 diabetes mellitus with hyperglycemia (8) Seizure disorder: Status: Acute (9) Chronic, continuous use of opioids: Status: Acute Plan Multiple pressure injury ulcers Status post debridement by Dr. Crawford on 05/26 Currently on room air Currently getting IV antibiotics for cellulitis For type 2 diabetes we will continue on consistent carb diet and insulin She is on chronic opioids Add bowel regimen Continue Keppra for seizure Start DVT prophylaxis 6 hours after her surgery acive smoker Attestations Medical Necessity Statement*: Continue medical management Time Spent in Patient Care: 30 Coding Level of Care Code Acute Refractory Products Supervisor for Chg Fwd Diagnoses Sacral pressure ulcer L89.159 Essential hypertension I10 CAD (coronary artery disease) I25.10 Associated angina: without angina Coronary Disease-Associated Artery/Lesion type: [place] artery [place] vs. transplanted heart: [place] heart COPD (chronic obstructive pulmonary disease) J44.9 (HFpEF) heart failure with preserved ejection fraction I50.30 Cellulitis of gluteal region L03.317 Diabetes type 2, uncontrolled E11.65 Glycemic state: with hyperglycemia Seizure disorder G40.909 Chronic, continuous use of opioids F11.90
[2022-05-26 17:00] LABS: Glucose Point of Care 218 mg/dL (70-110)
[2022-05-26] MEDS: pregabalin 150 mg Capsule PO (17:13)
[2022-05-26] MEDS: doxycycline 100 mg Tablet PO (17:13)
[2022-05-26] MEDS: levETIRAcetam 500 mg Tablet PO (17:19)
--- NOTE | 2022-05-26 18:08 | ANE.PACU2 ---
Inpatient post-anesthesia follow up: Airway intact: Yes Vital signs: Temperature 97.8 F Pulse Rate 97 Respiratory Rate 16 Blood Pressure 117/77 Pulse Oximetry 95 Oxygen Delivery Me thod Room Air Oxygen Flow Rate 2 Fraction of Inspir ed Oxygen Hydration adequate: Yes Nausea and vomiting: No Pain level: 1 Mental status: Baseline
[2022-05-26] MEDS: quetiapine 100 mg Tablet 200 MG PO (20:25)
[2022-05-26 20:48] LABS: Glucose Point of Care 300 mg/dL (70-110)
[2022-05-26] MEDS: diphenhydrAMINE 50 mg/mL SDV 1mL 25 MG IVP (20:49)
[2022-05-26] MEDS: acetaminophen 325 mg Tablet 650 MG PO (20:50)
[2022-05-26] MEDS: vancomycin 1,500 MG/300 ML PIGGYBACK 200 MG IV (21:36)
[2022-05-27] VITALS (9 sets, daily range): BP systolic 86–150; BP diastolic 47–84; PULSE 86–112; RESP 17–18; TEMP 36.7–36.8; O2SAT 92–100
[2022-05-27] MEDS: sodium chloride 0.9% 500 ML IV (03:19)
[2022-05-27 06:22] LABS: Glucose Point of Care 265 mg/dL (70-110)
[2022-05-27] MEDS: isosorbide mononitrate ER 60 mg Tablet PO (06:41)
[2022-05-27] MEDS: oxybutynin chloride XL 5 MG TABLET PO (06:41)
[2022-05-27] MEDS: atorvastatin 40 mg Tablet 80 MG PO (06:41)
[2022-05-27] MEDS: duloxetine 60 mg Capsule PO (06:42)
[2022-05-27] MEDS: aspirin 81 mg EC Tablet PO (06:42)
[2022-05-27] MEDS: pantoprazole DR 40 mg Tablet PO (06:42)
[2022-05-27] MEDS: metoprolol succinate ER (24 HR) 25 mg Tablet PO (06:42)
[2022-05-27] MEDS: losartan 50 mg Tablet PO (08:54)
[2022-05-27] MEDS: insulin lispro 100 unit/1 mL SUBCUT (08:54)
[2022-05-27] MEDS: pregabalin 150 mg Capsule PO (08:55)
[2022-05-27] MEDS: levETIRAcetam 500 mg Tablet PO (08:55)
[2022-05-27] MEDS: doxycycline 100 mg Tablet PO (08:59)
--- NOTE | 2022-05-27 10:06 | PC.CHAP ---
Pastoral Care Encounter/Spiritual Assessment Type of Contact [] Declined inside sales advertising executive visit [] Patient/Family/Request visit [] Outpatient visit [] Follow-up visit [] Physician referral [] Code/Alert [x] Routine visit [] Staff referral [] Actively dying [] Patient sleeping [] Family support [] [] Out of room [] Palliative care [] [x] Receiving care in room [] Pre-surgical visit [] Trauma [] Long length of stay [] ICU visit [] Other: Relational/Emotional Strength [x] Patient feels connected with others/family/visitors/staff [] Distress [] Loneliness/isolation [] Abandonment Spirituality of Patient [x] Person of Mary [] Attends Denominational of their Mary [x] Believes in Prayer [] Reads Bible or Episcopalian materials [] There are Spiritual issues to be addressed Plate Shear Operator Interventions [x] Prayer [x] Active listening [x] Non-anxious presence [x] Spiritual/emotional support [] Crisis/trauma care [x] Spiritual counseling [] Bereavement support [] Provided bereavement packet [] Provided Bible/devotional materials [] Provided toy/stuffed animal, coloring book to patient or family member [] Provided Communion [] Anointing/Barney [] Salvation [x] Completed spiritual assessment [] Other: Impact on Illness or Injury [] Angry [] Fearful [x] Anxious [] Often cries [] Exhaustion [] Unable to work [] Unable to attend faith [] Unable to walk/stand [] Unable to read [] Unable to drive [] Unable to eat/drink [] Unable to sleep [] Unable to be with family [] Patient intubated [] Other: Summary Had surgery daeling with punmona feeling better has a good attitude going home soon Time spent with patient 10 mins
[2022-05-27] MEDS: acetaminophen 325 mg Tablet 650 MG PO (10:26)
[2022-05-27] MEDS: vancomycin 1,500 MG/300 ML PIGGYBACK 200 MG IV (10:27)
--- NOTE | 2022-05-27 10:31 | PM.DCS ---
Discharge Providers Date of Admission: 05/26/22 10:55 Date of Discharge: May 27, 2022 Attending Provider at Admission: Brett Crawford MD Attending Provider at Discharge: Brett Crawford MD Diagnoses at Discharge Discharge Diagnosis (1) Sacral pressure ulcer: Status: Acute (2) Essential hypertension: Status: Acute (3) CAD (coronary artery disease): Status: Acute Qualifiers: Coronary Disease-Associated Artery/Lesion type: torres martinez artery [place] vs. transplanted heart: torres martinez heart Associated angina: without angina Qualified Code(s): I25.10 - Atherosclerotic heart disease of torres martinez coronary artery without angina pectoris (4) COPD (chronic obstructive pulmonary disease): Status: Acute (5) (HFpEF) heart failure with preserved ejection fraction: Status: Acute (6) Cellulitis of gluteal region: Status: Acute (7) Diabetes type 2, uncontrolled: Status: Acute Qualifiers: Glycemic state: with hyperglycemia Qualified Code(s): E11.65 - Type 2 diabetes mellitus with hyperglycemia (8) Seizure disorder: Status: Acute (9) Chronic, continuous use of opioids: Status: Acute Reason for Visit Reason for Visit: abdnormality on backside Hospital Course Hospital Course 56-year-old female who has multiple comorbid conditions, insulin-dependent, preserved ejection fraction, history of Crohn's disease, presented to the hospital for worsening of rash in her gluteal cleft. CT scan of abdomen pelvis showed continued inflammation in the left paramedian subcutaneous fat at the level of S4, S5 suggestive of cellulitis, Dr. Crawford was consulted for debridement 11 x [address] Crawford as recommended continuation of antibiotic for at least 10 days, close wound care follow-up Wound care: Xeroform and lidocaine 2%, followed by piece of , ABDs, and surgical pants. Hemoglobin A1c ranging between 13-14, I have increased her Lantus to 15 units.(Previously taking 10 units), at the time of discharge she will get doxycycline 10-day regimen Physical Exam Narrative: Patient is awake and alert Saturating on room air Euvolemic Abdomen soft Gluteal cleft ulcer showing no active drainage Patient is complaining of soreness otherwise no active pain Able to walk using walker Discharge Data Studies Completed and Pending Completed Studies During Hospitalization Category Date Time Status CT pelvis w con* [id number] Stat Cat Scan 05/25/22 19:08 Completed Pending at discharge Category Date Time Status Basic Metabolic Panel AM LABS Lab 05/27/22 04:00 Ordered Blood Culture Stat Lab 05/25/22 19:36 Results Complete Blood Count w/Auto AM LABS Lab 05/27/22 04:00 Ordered Vancomycin Trough Timed Lab 05/28/22 08:00 Ordered Wound Culture and Gram Stain Routine Lab 05/26/22 07:30 Received Radiology Impressions Pelvis CT 05/25/22 19:08 IMPRESSION: 1. Continued 4.5 x 2.3 x 1.7 cm inflammation in the left paramedian subcutaneous fat at the level of S4 and S5 suggesting cellulitis versus fat necrosis versus contusion versus other etiology. Axial series 3, images 22-35. 2. No obvious abscess or soft tissue emphysema. Laboratory Results WBC 18.0 10^3/uL (4.0-10.0) H 05/26/22 10:35 RBC 4.82 10^6/uL (4.1-5.3) 05/26/22 10:35 Hgb 10.4 g/dL (11.5-15.3) L 05/26/22 10:35 Hct 34.4 % (37.0-47.0) L 05/26/22 10:35 MCV 71.4 fl (81-99) L 05/26/22 10:35 MCH 21.6 pg (28.0-34.0) L 05/26/22 10:35 MCHC 30.2 g/dL (30.0-36.0) 05/26/22 10:35 RDW 18.4 % (12.1-15.1) H 05/26/22 10:35 Plt Count 567 10^3/cmm (130-400) H 05/26/22 10:35 MPV 9.3 fL (7.4-10.4) 05/26/22 10:35 Neut % (Auto) 68.1 % 05/26/22 10:35 Lymph % (Auto) 17.8 % 05/26/22 10:35 [place] % (Auto) 5.3 % 05/26/22 10:35 Eos % (Auto) 7.2 % 05/26/22 10:35 Baso % (Auto) 0.8 % 05/26/22 10:35 Neut # (Auto) 12.23 10^3/uL (1.8-7.7) H 05/26/22 10:35 Lymph # (Auto) 3.2 10^3/uL (0.8-4.8) 05/26/22 10:35 [place] # (Auto) 1.0 10^3/uL (0.2-0.9) H 05/26/22 10:35 Eos # (Auto) 1.3 10^3/uL (0.0-0.8) H 05/26/22 10:35 Baso # (Auto) 0.1 10^3/uL (0.0-0.1) 05/26/22 10:35 Nucleated RBC % (auto) 0 % 05/26/22 10:35 Total Counted 100 (0-100) 05/25/22 19:20 Atypical Lymphs % 11.0 % (0-5) H 05/25/22 19:20 Absolute Neutrophils 9.6 10^3/cmm (1.4-6.5) H 05/25/22 19:20 Segmented Neutrophils 63 % 05/25/22 19:20 Abs Segm Neuts (Man) 9.6 10/cmm (1.6-7.1) H 05/25/22 19:20 Band Neutrophils 0.0 % 05/25/22 19:20 Abs Band Neuts (Man) 0.0 10^3/cmm (0.0-1.2) 05/25/22 19:20 Absolute Lymphocytes 4.7 10^3/cmm (1.2-3.4) H 05/25/22 19:20 Lymphocytes (Manual) 20 % 05/25/22 19:20 Monocytes (Manual) 2.0 % 05/25/22 19:20 Absolute Monocytes 0.3 10^3/cmm (0.1-0.6) 05/25/22 19:20 Eosinophils (Manual) 3 % 05/25/22 19:20 Absolute Eosinophils 0.4 10^3/cmm (0.0-0.7) 05/25/22 19:20 Basophils (Manual) 0.0 % 05/25/22 19: Absolute Basophils 0.0 10^3/cmm (0.0-0.2) 05/25/22 19:20 Myelocytes 1.0 % 05/25/22 19:20 Nucleated RBCs # 0.0 /100WBC 05/26/22 10:35 Platelet Estimate Increased (Normal) H 05/25/22 19:20 ESR 38 mm/hr (0-15) H 05/25/22 19:20 PT 13.60 SECONDS (12.1-14.9) 05/26/22 10:35 INR 1.01 (0.8-1.2) 05/26/22 10:35 APTT 36.9 SECONDS (23.9-36.7) H 05/25/22 19:53 Sodium 141 mmol/L (136-145) 05/26/22 10:35 Potassium 4.3 mmol/L (3.5-5.1) 05/26/22 10:35 Chloride 109 mmol/L (98-107) H 05/26/22 10:35 Carbon Dioxide 24 mmol/L (22-29) 05/26/22 10:35 Anion Gap 12.3 (5-19) 05/26/22 10:35 BUN 11 mg/dL (6-20) 05/26/22 10:35 Creatinine 0.5 mg/dL (0.5-0.9) 05/26/22 10:35 GFR Calculation 128.6 mL/min (90-130) 05/26/22 10:35 Glucose 221 mg/dL (65-115) H 05/26/22 10:35 POC Glucose 265 mg/dL (70-110) H 05/27/22 06:14 Estimat Average Glucose 335 05/25/22 19:20 Hemoglobin A1c 13.3 % (4.0-6.0) H 05/25/22 19:20 Calculated Osmolality 298 mOsm/kg (285-295) H 05/26/22 10:35 Calcium 8.5 mg/dL (8.5-10.5) 05/26/22 10:35 Phosphorus 3.5 mg/dL (2.5-4.5) 05/26/22 10:35 Magnesium 1.7 mg/dL (1.7-2.3) 05/26/22 10:35 Total Bilirubin 0.2 mg/dL (0.15-1.2) 05/26/22 10:35 AST 10 U/L (0-32) 05/26/22 10:35 ALT 8 U/L (0-33) 05/26/22 10:35 Alkaline Phosphatase 99 IU/L (35-105) 05/26/22 10:35 C-Reactive Protein 7.4 mg/L (0.0-4.9) H 05/26/22 10:35 NT-Pro-B Natriuret Pep 73 pg/mL (0-125) 05/26/22 10:35 Total Protein 6.0 g/dL (6.6-8.7) L 05/26/22 10:35 Albumin 3.1 g/dL (3.5-5.2) L 05/26/22 10:35 Globulin 2.9 g/dL (1.3-4.6) 05/26/22 10:35 Procalcitonin 0.03 ng/mL (0-0.5) 05/26/22 10:35 Vitals Last Vital Signs Temp 98.2 F 05/27/22 08:00 Pulse 112 H 05/27/22 08:58 Resp 18 05/27/22 08:58 BP 150/84 05/27/22 08:54 Pulse Ox 95 05/27/22 08:58 O2 Del Method 05/27/22 08:58 O2 Flow Rate 2 05/26/22 10:30 Discharge Plan Discharge Patient Disposition: Home Condition: Stable Prescriptions: New doxycycline hyclate 100 mg tablet 100 mg PO BID 10 Days Qty: 20 0RF Continued Repatha SureClick 140 mg/mL pen injector 140 mg SUBCUT .[id number] Qty: 2 5RF losartan 50 mg tablet 50 mg PO DAILY@0800 Qty: 180 3RF (DME) pen needle, diabetic [Comfort EZ Pen [place]] 32 gauge x 5/32 needle See Rx Instructions .Route Qty: 100 2RF Rx Instructions: use 3times a day to inject insulin. (DME) pen needle, diabetic [Comfort EZ Pen [place]] 31 gauge x 5/16 needle See Rx Instructions .Route Qty: 100 6RF Rx Instructions: use daily with levemir Brilinta 90 mg tablet 90 mg PO BID@08,21 Qty: 180 4RF Spiriva with HandiHaler 18 mcg capsule, w/inhalation device 1 cap inhalation DAILY Qty: 30 3RF Rx Instructions: puncture 1 cap using device; one dose = 2 inhalations naloxone 4 mg/actuation spray,non-aerosol 4 mg intranasal Q2M PRN (Reason: opioid overdose) Qty: 2 0RF Rx Instructions: spray 1 dose into ONE nostril; alternate nostrils w each dose until help arrives pregabalin [Lyrica] 150 mg capsule 150 mg PO BID Qty: 60 3RF hydromorphone 2 mg tablet 2 mg PO Q8H 30 Days Qty: 90 0RF furosemide 40 mg tablet 40 mg PO DAILY PRN (Reason: Edema) Qty: 30 0RF cyclobenzaprine 10 mg tablet 10 mg PO TID PRN (Reason: muscle spasm) 30 Days Qty: 90 0RF Rybelsus 3 mg tablet 3 mg PO QAM Qty: 30 0RF acetaminophen 325 mg Tablet 650 mg PO Q6H PRN (Reason: Mild/Mod Pain Or Temp >/= 101) Qty: 30 0RF albuterol sulfate 2.5 mg /3 mL (0.083 %) Solution For Nebulization 2.5 mg INHALATION Q4H PRN (Reason: Shortness Of Breath) nitroglycerin [Nitrostat] 0.4 mg Tablet, Sublingual 0.4 mg SUBLINGUAL Q5M PRN (Reason: Chest Pain) Rx Instructions: do not exceed 3 doses per episode metoprolol succinate 25 mg tablet extended release 24 hr 25 mg PO QAM atorvastatin 80 mg tablet 80 mg PO QAM levetiracetam 500 mg tablet 500 mg PO BID quetiapine 200 mg tablet 200 mg PO BEDTIME aspirin [Adult Aspirin Regimen] 81 mg tablet,delayed release (DR/EC) 81 mg PO QAM isosorbide mononitrate 60 mg tablet extended release 24 hr 60 mg PO QAM pantoprazole 40 mg tablet,delayed release (DR/EC) 40 mg PO QAM oxybutynin chloride 5 mg tablet extended release 24 hr 5 mg PO QAM albuterol sulfate 90 mcg/actuation HFA aerosol inhaler 1 puff inhalation Q6H PRN (Reason: Shortness Of Breath) duloxetine 60 mg capsule,delayed release(DR/EC) 60 mg PO QAM levofloxacin 750 mg tablet 750 mg PO DAILY Rx Instructions: rx filled 05/17/22 5d/s Changed insulin lispro 100 unit/mL insulin pen 3 unit SUBCUT AC Qty: 15 4RF Rx Instructions: sliding scale subcutaneously tid Levemir FlexTouch U-100 Insuln 100 unit/mL (3 mL) insulin pen 15 unit SUBCUT QAM Qty: 15 3RF Discontinued cefadroxil 500 mg capsule 500 mg PO BID Qty: 14 0RF azithromycin 500 mg tablet 500 mg PO DAILY Rx Instructions: rx filled 05/18/22 7d/s Discharge Orders: Discharge Order (Routine); Ordered 05/27/22 Ordered By: Darrell Cunha Referrals: Brett Crawford MD [Physician] - (Return to wound care center first available appointment) [facility], [Staff Physician] - 1-3 days Discharge Diet: Diabetic Discharge Activity: Increase activity as tolerated Patient Instructions: Doxycycline (By mouth) (Acticlate, Adoxa, Avidoxy, Monodox, Doryx), Opioid Safety Activity Restrictions/Additional Instructions: 1-nutrition optimization, better sugar control take lantus 15 U and short acting insulin lispro 3 units before meals 2-wound care in the form of daily application of Hydrofera Blue followed by OPTi foam as a secondary dressing 3-management of medical comorbidities per your family doctor Discharge Attestations Time Spent in Discharge Care*: less than 30 min Status at Discharge: Cognitive status at discharge: mildly impaired cognition, Behavioral status at discharge: cooperative, Quality Metrics Clinical Quality Measures [ No reported AMI, CVA or VTE this stay] Coding Level of Care Code Acute Chg FW DC note Diagnoses Sacral pressure ulcer L89.159 Essential hypertension I10 CAD (coronary artery disease) I25.10 Coronary Disease-Associated Artery/Lesion type: torres martinez artery [place] vs. transplanted heart: torres martinez heart Associated angina: without angina COPD (chronic obstructive pulmonary disease) J44.9 (HFpEF) heart failure with preserved ejection fraction I50.30 Cellulitis of gluteal region L03.317 Diabetes type 2, uncontrolled E11.65 Glycemic state: with hyperglycemia Seizure disorder G40.909 Chronic, continuous use of opioids F11.90
[2022-05-27 11:13] LABS: Glucose Point of Care 341 mg/dL (70-110)
[2022-05-27 13:59] LABS: Basophils # 0.1 10^3/uL (0.0-0.1); Basophils % 1.2 %; Eosinophils # 1.1 10^3/uL (0.0-0.8); Eosinophils % 9.7 %; Hematocrit 32.2 % (37.0-47.0); Hemoglobin 9.7 g/dL (11.5-15.3); Lymphocytes # 2.5 10^3/uL (0.8-4.8); Lymphocytes % 22.2 %; Mean Corpuscular HGB Conc 30.1 g/dL (30.0-36.0); Mean Corpuscular Hemoglobin 21.6 pg (28.0-34.0); Mean Corpuscular Volume 71.7 fl (81-99); Monocytes # 0.7 10^3/uL (0.2-0.9); Monocytes % 5.8 %; Neutrophils # 6.77 10^3/uL (1.8-7.7); Neutrophils % 60.6 %; Nucleated Red Blood Cells % 0 %; Platelet Count 568 10^3/cmm (130-400); Red Blood Count 4.49 10^6/uL (4.1-5.3); Red Cell Distribution Width 18.6 % (12.1-15.1); White Blood Count 11.2 10^3/uL (4.0-10.0)
[2022-05-27 14:22] LABS: Anion Gap 16.4 (5-19); Blood Urea Nitrogen 7 mg/dL (6-20); Calcium 8.8 mg/dL (8.5-10.5); Carbon Dioxide 21 mmol/L (22-29); Chloride 104 mmol/L (98-107); Glomerular Filtration Rate 166.3 mL/min (90-130); Glucose 322 mg/dL (65-115); Osmolality Calculated 294 mOsm/kg (285-295); Potassium 4.4 mmol/L (3.5-5.1); Sodium 137 mmol/L (136-145)
== END 2022-05-27 11:30 | disposition home or self-care (01) ==
LOC: ER 22:30 → ER IP 22:55 → OR 05-26 06:10 → ER 05-26 06:40 → MEDSURG 05-26 10:57 → OR 05-27 11:44
PROVIDERS: Surgery; Admitting Provider Family Medicine; Emergency Provider Emergency Medicine; Visit Provider Internal Medicine
PROC: (CPT 11042; principal; 2022-05-26 07:00)
DX: L89.329 Pressure ulcer of left buttock, unspecified stage (principal); L03.317 Cellulitis of buttock; E11.65 Type 2 diabetes mellitus with hyperglycemia; J44.9 Chronic obstructive pulmonary disease, unspecified; I25.10 Atherosclerotic heart disease of native coronary artery without angina pectoris; I11.0 Hypertensive heart disease with heart failure; I50.30 Unspecified diastolic (congestive) heart failure; G89.29 Other chronic pain; Z79.891 Long term (current) use of opiate analgesic; E11.42 Type 2 diabetes mellitus with diabetic polyneuropathy; Z79.82 Long term (current) use of aspirin; E78.5 Hyperlipidemia, unspecified; Z86.73 Personal history of transient ischemic attack (TIA), and cerebral infarction without residual deficits; E11.622 Type 2 diabetes mellitus with other skin ulcer; Z79.4 Long term (current) use of insulin
CPT/HCPCS: 11042; 11045 ×3; 36415; 36416; 72193; 80048; 80053; 82962; 83036; 83735; 83880; 84100; 84145; 85007; 85025; 85610; 85651; 85730; 86140; 87040; 87070; 87075; 87077; 87186; 87205; 94640; 94664; 96365; 96367; 96372; 96375; 96376; 99285; G0378; J0692; J0743; J1170; J1200; J1815; J2405; J2704; J2765; J3370; J3490; J7030; J7040; J7050; Q9967; S0030

== ENCOUNTER → 2022-05-31 14:02 | Outpatient (BNVA) | payer MEDICARE, MEDICAID, SELFPAY | PROVIDERS: Visit Provider Thoracic Surgery (Cardiothoracic Vascular Surgery) | DX: E11.621 Type 2 diabetes mellitus with foot ulcer (principal); L97.511 Non-pressure chronic ulcer of other part of right foot limited to breakdown of skin; L89.312 Pressure ulcer of right buttock, stage 2; I96 Gangrene, not elsewhere classified | CPT/HCPCS: 11042; 97597; A6021 ==

== ENCOUNTER → 2022-06-07 13:12 | Outpatient (BNVA) | payer MEDICARE, MEDICAID, SELFPAY | PROVIDERS: Visit Provider Thoracic Surgery (Cardiothoracic Vascular Surgery) | DX: I96 Gangrene, not elsewhere classified (principal); L89.891 Pressure ulcer of other site, stage 1; L89.322 Pressure ulcer of left buttock, stage 2 | CPT/HCPCS: 97597 ==

== ENCOUNTER 2022-06-08 15:58 | Outpatient (CLI) | payer MEDICARE, MEDICAID, SELFPAY ==
--- NOTE | 2022-06-08 16:30 | USCV_ITS ---
Mayra Ascencio Age: 57 Gender: F : 1965 Exam Date: 06/08/2022 16:39 Ordering Phys: Ernesto Miller MD (Andy) ([email or web address] – [place]) Technologist: JOSEPH [place] [facility] [place]ication: CAROTID STENOSIS Risk Factors: Previous Vascular Surgery: Right Brachial BP: / Left Brachial BP: / Right Left Velocity (cm/s) Spectral Plaque Velocity (cm/s) Spectral Plaque Syst/Diast Broadening Syst/Diast Broadening 26.50/ 19.20 Prox CCA 74.60 / 24.10 23.90/ 19.20 Mid CCA 83.10 / 41.20 29.50/ 22.60 Distal CCA 87.80 / 30.30 50.60/ 37.50 Prox ICA 315.50/ 128.80 44.70/ 28.90 Mid ICA 243.30/ 84.40 21.10/ 14.20 Distal ICA 100.30/ 35.30 71.00 ECA 146.60 1.72 ICA/CCA 3.59 Vertebral 40.80/ 20.20 cm/s 65.30/ 21.00 cm/s Subclavian 61.80 170.9 0 CONCLUSIONS Right ICA stenosis <50%. Moderate atheromatous plaque right carotid bulb/ICA. Left ICA stenosis 70-99%. Recommend further evaluation with CTA. Moderate atheromatous plaque left carotid bulb/ICA. Normal antegrade Doppler flow noted in the right vertebral artery. Normal antegrade Doppler flow noted in the left vertebral artery. Teto Stone MD (Electronically Signed) Final Date: 09 June 2022 13:17 S
== END 2022-06-08 15:59 | disposition home or self-care (01) ==
PROVIDERS: PCP Nurse Practitioner Family; Visit Provider Thoracic Surgery (Cardiothoracic Vascular Surgery)
DX: I65.23 Occlusion and stenosis of bilateral carotid arteries (principal)
CPT/HCPCS: 93880

== ENCOUNTER → 2022-06-14 13:02 | Outpatient (BNVA) | payer MEDICARE, MEDICAID, SELFPAY | PROVIDERS: PCP Nurse Practitioner Family; Visit Provider Thoracic Surgery (Cardiothoracic Vascular Surgery) | DX: I96 Gangrene, not elsewhere classified (principal); L89.322 Pressure ulcer of left buttock, stage 2 | CPT/HCPCS: 97597 ==

== ENCOUNTER → 2022-06-17 08:58 | Outpatient (BNVA) | payer MEDICARE, MEDICAID, SELFPAY | PROVIDERS: PCP Nurse Practitioner Family; Visit Provider Thoracic Surgery (Cardiothoracic Vascular Surgery) | DX: I65.22 Occlusion and stenosis of left carotid artery (principal); F17.210 Nicotine dependence, cigarettes, uncomplicated | CPT/HCPCS: 99213 ==

== ENCOUNTER → 2022-06-28 13:00 | Outpatient (BNVA) | payer MEDICARE, MEDICAID, SELFPAY | PROVIDERS: PCP Nurse Practitioner Family; Visit Provider Nurse Practitioner Family | DX: E11.621 Type 2 diabetes mellitus with foot ulcer (principal); L89.891 Pressure ulcer of other site, stage 1; L89.322 Pressure ulcer of left buttock, stage 2; I96 Gangrene, not elsewhere classified | CPT/HCPCS: 11042 ==

== ENCOUNTER → 2022-07-05 11:03 | Outpatient (BNVA) | payer MEDICARE, MEDICAID, SELFPAY | PROVIDERS: PCP Nurse Practitioner Family; Visit Provider Thoracic Surgery (Cardiothoracic Vascular Surgery) | DX: I96 Gangrene, not elsewhere classified (principal); L89.322 Pressure ulcer of left buttock, stage 2 | CPT/HCPCS: 97597 ==

== ENCOUNTER → 2022-07-12 13:10 | Outpatient (BNVA) | payer MEDICARE, MEDICAID, SELFPAY | PROVIDERS: PCP Nurse Practitioner Family; Visit Provider Thoracic Surgery (Cardiothoracic Vascular Surgery) | DX: I96 Gangrene, not elsewhere classified (principal); L97.322 Non-pressure chronic ulcer of left ankle with fat layer exposed | CPT/HCPCS: 97597 ==

== ENCOUNTER 2022-07-13 20:00 | Outpatient (CLI) | payer MEDICARE, MEDICAID, SELFPAY | END 2022-07-13 20:01 | disposition home or self-care (01) | LOC: SLEEP 07-14 08:46 | PROVIDERS: PCP Nurse Practitioner Family; Visit Provider Anesthesiology Pain Medicine | DX: G47.10 Hypersomnia, unspecified (principal); G47.33 Obstructive sleep apnea (adult) (pediatric) | CPT/HCPCS: 95811 ==

== ENCOUNTER → 2022-07-19 13:47 | Outpatient (BNVA) | payer MEDICARE, MEDICAID, SELFPAY | PROVIDERS: PCP Nurse Practitioner Family; Visit Provider Thoracic Surgery (Cardiothoracic Vascular Surgery) | DX: I96 Gangrene, not elsewhere classified (principal); L89.322 Pressure ulcer of left buttock, stage 2 | CPT/HCPCS: 99212 ==

== ENCOUNTER → 2022-08-05 12:05 | Outpatient (BNVA) | payer MEDICARE, MEDICAID, SELFPAY | PROVIDERS: PCP Nurse Practitioner Family; Visit Provider Family Medicine | DX: E11.9 Type 2 diabetes mellitus without complications (principal); I65.22 Occlusion and stenosis of left carotid artery | CPT/HCPCS: 80053; 80061; 83036; 85025 ==

== ENCOUNTER 2022-08-18 06:54 | Inpatient (IN) | payer MEDICARE, MEDICAID, SELFPAY ==
[2022-08-18] VITALS (80 sets, daily range): BP systolic 69–145; BP diastolic 53–93; PULSE 95–122; RESP 13–30; TEMP 36.9–37.4; O2SAT 85–100; BMI 29.9
--- NOTE | 2022-08-18 06:56 | ED_ITS ---
HPI - Altered Mental Status General: Chief Complaint: Neuro Symptoms/Deficit Stated Complaint: AMS Time Seen by Provider: 08/18/22 06:55 Limitations: altered mental status History of Present Illness: Ms. Ascencio is a 57-year-old lady with, per chart review, seizures, baseline right-sided deficits from prior CVA, CHF, CAD, dyslipidemia, fibromyalgia, history of NSTEMI, diabetes, hypertension presenting to the emergency department with altered mental status suspected secondary to respiratory concern. Last definitively known normal was last night or per EMS reports no focal abnormalities. They found the patient in respiratory distress with room air oxygen saturations 75 to 79%. Patient tachypneic and tachycardic. They administered supplemental oxygen, DuoNeb, and approximately 700 cc IV fluid without significant change in mentation though oxygen saturation improved. Unknown intensity, course, duration, associated symptoms, provoking, exacerbati ng, or alleviating factors. Review of Systems 2 General: Reports: ROS unobtainable due to mental status [facility] ED PFSH: Medical History (Updated 08/18/22 @ 10:32 by Salvador Sterling MD) (HFpEF) heart failure with preserved ejection fraction Abnormal stress test Acute and chronic respiratory failure with hypoxia Acute exacerbation of CHF (congestive heart failure) Acute hypoxemic respiratory failure Anemia CAD (coronary artery disease) Candidiasis of vagina Carpal tunnel syndrome, right Cellulitis of gluteal region Chest pain Chronic knee pain Chronic left-sided low back pain Chronic obstructive pulmonary disease, unspecified Chronic pain of left knee Chronic, continuous use of opioids Compression fracture of L2 lumbar vertebra COPD (chronic obstructive pulmonary disease) COPD exacerbation Coronary artery disease due to type 2 diabetes mellitus Current every day smoker CVA (cerebral vascular accident) Diabetes type 2, uncontrolled Diabetic foot ulcer Dyslipidemia Dyspnea Elevated troponin Encounter for long-term opiate analgesic use Essential hypertension Exposure to COVID-19 virus Fibromyalgia, primary History of CVA (cerebrovascular accident) History of hypoglycemic coma Hoarseness of voice Hyperlipidemia, mixed Hypoxemia Insomnia Intervertebral disc disorder of lumbar region with myelopathy Leukocytosis Low back pain radiating to both legs Lumbosacral spondylosis without myelopathy Needs flu shot Neuropathy NSTEMI (non-ST elevated myocardial infarction) Thought to be secondary to plaque rupture. Angiogram July 04 no flow- limiting lesions, or restenosis of previous stent from April 2020 Numbness and tingling in both hands Obesity (BMI 35.0-39.9 without comorbidity) Opioid contract exists Osteoarthritis of left knee Osteoarthritis of spine at multiple levels Pericardial effusion Peripheral sensory neuropathy due to type 2 diabetes mellitus Pneumonia Pressure ulcer Prosthetic joint infection Right arm weakness Right hip pain Sacral pressure ulcer Seizure Seizure disorder Seizures Sepsis Septic arthritis of knee, left Stenosis of left internal carotid artery with cerebral infarction Syncope Type 2 diabetes mellitus with diabetic autonomic (poly)neuropathy Unstable angina Urinary incontinence Urinary tract infection UTI (urinary tract infection) Vitamin D deficiency Surgical History History of arthroscopic surgery of elbow BILATERAL History of coronary angiogram Angiogram April 2020 with 90% circumflex lesion, drug-eluting stent placed by Dr. Jerome S/p bilateral carpal tunnel release S/P hysterectomy S/P knee surgery RIGHT S/P lumbar fusion DR. Shreya ZAYAS IN [place], [place] L4-L5, L5-S1 Status post left knee replacement Status post lumbar laminectomy Family History Other CAD (coronary artery disease) Cancer Diabetes Social History Smoking and tobacco status: current every day smoker cigarettes Packs smoked per day: 0.5 Years cigarettes smoked: 10 [ Other cigarette details: PER PATIENT REPORT] Smoking risk assessment/counseling performed?: Yes Alcohol intake: former Desire information about alcohol rehabilitation?: No Counseling given: No Desire information about substance/drug rehabilitation?: No Counseling given: No Caregiver/support person: No Lives independently: Yes Household members: family and other Details: son Housing: Manufactured/Mobile home Marital status: Unknown Marital status details: She and son state she is not service: No Current occupational status: unemployed Pets and animals: Yes History of recent travel: No Current gender identity: Female Physical Exam Const: COMMON NORMALS: alert GENERAL APPEARANCE: well developed and ill appearing HENMT: COMMON NORMALS: normocephalic and atraumatic HEAD & SCALP: normocephalic and atraumatic Eye: COMMON NORMALS: conjunctivae normal CONJUNCTIVA: Yes conjunctivae normal SCLERA: sclerae normal Neck/C-Spine: COMMON NORMALS: supple GENERAL: Yes trachea midline Resp: EFFORT & INSPECTION: Yes tachypneic and Yes respiratory distress AUSC ULTATION: rhonchi and wheezes Cardio: COMMON NORMALS: regular rhythm RATE: tachycardic RHYTHM: regular rhythm GI: COMMON NORMALS: Soft to palpation PALPATION: Yes Soft to palpation and No Tenderness to palpation present (GI) Extremity: GENERAL: Yes normal exam except as noted and No edema Neuro: COMMON NORMALS: moves all extremities SENSORIUM/ORIENTATION: Yes al ert, Yes Orientation impaired and Yes somnolent OTHER: Limited participation in neurologic exam secondary to mental status Psych: ATTENTION/CONCENTRATION: Yes attention grossly impaired Course Vital Signs: Vital signs: Vital Signs Temperature 98.4 F 08/18/22 12:29 Pulse Rate 105 H 08/18/22 12:29 Respiratory Rate 18 08/18/22 12:29 Blood Pressure 115/67 08/18/22 12:29 Pulse Oximetry 92 08/18/22 12:29 Oxygen Delivery Me thod 08/18/22 12:29 Oxygen Flow Rate 50 08/18/22 08:30 Fraction of Inspir ed Oxygen 40 08/18/22 12:29 MDM - Altered Mental Status Medical Decision Making 57-year-old lady presenting with respiratory distress and altered mental status. Upon EMS initial evaluation patient hypoxemic on room air with tachypnea and green sputum. Somewhat improved with regards to respiratory status with supplemental oxygen and DuoNeb treatment though mental status persists. Limited initial neurologic exam secondary to patient's mental status however no obvious focal findings, patient appears generally encephalopathic. Patient is ill appearing with coarse rhonchi and wheezing throughout lung sounds. Empiric treatment for infection ordered including Levaquin given patient's other allergies, IV fluids to complete 30 cc/kg fluid requirement when combined with prehospital administered fluids, RT treatment, and steroids. Initial ABG surprisingly compensated pH 7.37, PCO2 40.4, PO2 75.5 on 15 L nonrebreather mask. Clinically I still suspect respiratory source despite these results. Patient switched to heated high flow for comfort and additional oxygen administration EKG demonstrates sinus tachycardia with nonspecific ST segment abnormalities, no STEMI. Laboratory studies notable for significant leukocytosis, near baseline microcytic anemia, thrombocytosis again noted. Metabolic panel with mild hyponatremia and hypochloremia, renal function worse than baseline however still within normal range, glucose elevated without evidence of DKA. Initial troponin is elevated however patient chronically has elevated troponin, 2-hour troponin pending at time of admission. CRP elevated, procalcitonin negative, TSH normal. Urinalysis pending. Salicylates and acetaminophen as well as ethyl alcohol are negative as ordered as part of altered mental status evaluation. Lactic acid is normal. Chest x-ray with coarse haziness throughout and worse left lower lung consolidation concerning for pneumonia. CT head negative for acute intracranial pathology to explain mental status change. Upon serial assessment patient appears mildly improved. Most likely etiology of patient's symptoms is infectious, likely pneumonia with evidence of sepsis, acute respiratory failure with hypoxia, and altered mental status secondary to generalized illness The results of ED evaluation were discussed with the patient including plan for admission due to requirement for level of care not available if discharged to prevent significant worsening/deterioration. Patient agreeable with plan. Patient discussed with Dr. Sterling of the hospitalist service who is agreeable to admit the patient. After review of history hospitalist noted prior history of ESBL and MRSA as well as recent history of Levaquin. Therefore meropenem and linezolid ordered. Medical Records I reviewed the patient's medical records. Lab Data I reviewed the patient's lab results. : 08/18/22 07:42 08/18/22 07:42 Radiology Impressions Chest X-Ray 08/18/22 07:00 IMPRESSION: 1. Coarse chronic pulmonary markings. 2. Nonspecific left lung base opacity favors atelectasis or pneumonia. Head CT 08/18/22 07:00 IMPRESSION: 1. No evidence of intracranial hemorrhage or mass effect. 2. Moderate parenchymal volume loss. 3. No acute intracranial findings. Laboratory Results WBC 26.8 10^3/uL (4.0-10.0) H 08/18/22 07:42 RBC 5.05 10^6/uL (4.1-5.3) 08/18/22 07:42 Hgb 10.8 g/dL (11.5-15.3) L 08/18/22 07:42 Hct 36.5 % (37.0-47.0) L 08/18/22 07:42 MCV 72.3 fl (81-99) L 08/18/22 07:42 MCH 21.4 pg (28.0-34.0) L 08/18/22 07:42 MCHC 29.6 g/dL (30.0-36.0) L 08/18/22 07:42 RDW 18.7 % (12.1-15.1) H 08/18/22 07:42 Plt Count 621 10^3/cmm (130-400) H 08/18/22 07:42 MPV 9.0 fL (7.4-10.4) 08/18/22 07:42 Neut % (Auto) 84.7 % 08/18/22 07:42 Lymph % (Auto) 5.0 % 08/18/22 07:42 Menard % (Auto) 8.4 % 08/18/22 07:42 Eos % (Auto) 0.6 % 08/18/22 07:42 Baso % (Auto) 0.6 % 08/18/22 07:42 Neut # (Auto) 22.70 10^3/uL (1.8-7.7) H 08/18/22 07:42 Lymph # (Auto) 1.3 10^3/uL (0.8-4.8) 08/18/22 07:42 Menard # (Auto) 2.2 10^3/uL (0.2-0.9) H 08/18/22 07:42 Eos # (Auto) 0.2 10^3/uL (0.0-0.8) 08/18/22 07:42 Baso # (Auto) 0.2 10^3/uL (0.0-0.1) H 08/18/22 07:42 Nucleated RBC % (auto) 0 % 08/18/22 07:42 Nucleated RBCs # 0.0 /100WBC 08/18/22 07:42 Specimen Type Arterial 08/18/22 07:05 Sample Site Radial, left 08/18/22 07:05 ABG pH 7.37 (7.35-7.45) 08/18/22 07:05 ABG pCO2 40.4 mmHg (35-45) 08/18/22 07:05 ABG pO2 75.5 mmHg (80.0-100.0) L 08/18/22 07:05 ABG HCO3 23.4 mmol/L (22-26) 08/18/22 07:05 ABG O2 Saturation 95.1 08/18/22 07:05 ABG Base Excess -1.8 mmol/L (-2.0-2.0) 08/18/22 07:05 Freddy Test Pos 08/18/22 07:05 A-a O2 Gradient 3.3 mmHg (5-10) L 08/18/22 07:05 Hematocrit 34.2 % (37-47) L 08/18/22 07:05 Hgb O2 Saturation 91.2 % (95-100) L 08/18/22 07:05 Carboxyhemoglobin 3.2 %THgb (0.4-20.1) 08/18/22 07:05 Methemoglobin 0.9 % (0.4-1.5) 08/18/22 07:05 Total Hemoglobin 11.2 g/dL (12-16) L 08/18/22 07:05 Sodium 133.0 mmol/L (131-143) 08/18/22 07:05 Potassium 3.9 mmol/L (3.5-5.0) 08/18/22 07:05 Glucose 245.0 mg/dL (70-115) H 08/18/22 07:05 Ionized Calcium 1.2 mmol/L (1.1-1.4) 08/18/22 07:05 O2 Delivery Device Nrb 08/18/22 07:05 O2 Liters/Min 15.0 % 08/18/22 07:05 Television Installer ID Cak 08/18/22 07:05 Sodium 133 mmol/L (136-145) L 08/18/22 07:42 Potassium 3.9 mmol/L (3.5-5.1) 08/18/22 07:42 Chloride 96 mmol/L (98-107) L 08/18/22 07:42 Carbon Dioxide 23 mmol/L (22-29) 08/18/22 07:42 Anion Gap 17.9 (5-19) 08/18/22 07:42 BUN 13 mg/dL (6-20) 08/18/22 07:42 Creatinine 0.9 mg/dL (0.5-0.9) 08/18/22 07:42 GFR Calculation 65.0 mL/min (90-130) L 08/18/22 07:42 Glucose 230 mg/dL (65-115) H 08/18/22 07:42 POC Glucose 267 mg/dL (70-110) H 08/18/22 07:10 Calculated Osmolality 283 mOsm/kg (285-295) L 08/18/22 07:42 Lactic Acid 2.1 mmol/L (0.5-2.2) 08/18/22 07:42 Lactic Acid (Sepsis) 1.4 mmol/L (0.5-2.2) 08/18/22 11:30 Calcium 9.2 mg/dL (8.5-10.5) 08/18/22 07:42 Iron 13 ug/dL (37-145) L 08/18/22 09:54 TIBC 349 mcg/dl 08/18/22 09:54 % Saturation 3.7 % (20-50) L 08/18/22 09:54 Unsat Iron Binding 336 ug/dL (112-347) 08/18/22 09:54 Ferritin 39 ng/mL (15-150) 08/18/22 09:54 Total Bilirubin 0.4 mg/dL (0.15-1.2) 08/18/22 07:42 AST 26 U/L (0-32) 08/18/22 07:42 ALT 12 U/L (0-33) 08/18/22 07:42 Alkaline Phosphatase 94 U/L (35-105) 08/18/22 07:42 Ammonia 32 umol/L (11-51) 08/18/22 07:42 Troponin T Baseline 58 ng/L (0-10) H 08/18/22 07:42 Troponin T 120 Minute 57.87 ng/L (0-10) H 08/18/22 09:54 Delta Troponin T -0.13 ABS# (0-10) L 08/18/22 09:54 C-Reactive Protein 91.6 mg/L (0.0-4.9) H 08/18/22 07:42 NT-Pro-B Natriuret Pep 313 pg/mL (0-125) H 08/18/22 07:42 Total Protein 6.9 g/dL (6.6-8.7) 08/18/22 07:42 Albumin 3.4 g/dL (3.5-5.2) L 08/18/22 07:42 Globulin 3.5 g/dL (1.3-4.6) 08/18/22 07:42 Procalcitonin 0.20 ng/mL (0-0.5) 08/18/22 07:42 TSH 0.54 uIU/mL (0.27-4.20) 08/18/22 07:42 Urine Color Yellow (Yellow) 08/18/22 09:30 Urine Appearance Cloudy (CLEAR) A 08/18/22 09:30 Urine pH 5 (5-7) 08/18/22 09:30 Ur Specific Clemons 1.010 (1.005-1.030) 08/18/22 09:30 Urine Protein Neg (Negative) 08/18/22 09:30 Urine Glucose (UA) 4+ (Normal) H 08/18/22 09:30 Urine Ketones 1+ (Negative) H 08/18/22 09:30 Urine Blood 2+ (Negative) H 08/18/22 09:30 Urine Nitrate Negative (Negative) 08/18/22 09:30 Urine Bilirubin Neg (Negative) 08/18/22 09:30 Urine Urobilinogen Norm mg/dL (Negative) 08/18/22 09:30 Ur Leukocyte Esterase 1+ (Negative) H 08/18/22 09:30 Urine RBC 0-4 /hpf (0-2) H 08/18/22 09:30 Urine WBC >100 /hpf (0-5) H 08/18/22 09:30 Ur Squamous Epith Cells 5-10 /hpf (0-5) H 08/18/22 09:30 Amorphous Sediment Not Reportable 08/18/22 09:30 Urine Bacteria 3+ /hpf (NONE) H 08/18/22 09:30 Urine Mucus 1+ /hpf 08/18/22 09:30 Urine Yeast 4+ /hpf H 08/18/22 09:30 Nasal Influ A H1 2008 PCR Not detected (NOT DETECT) 08/18/22 08:05 Salicylates < 0.3 mg/dL (3-10) L 08/18/22 07:42 Urine Opiates Screen Positive ng/mL (Negative) H 08/18/22 09:30 Acetaminophen < 5.0 ug/mL (10-30) L 08/18/22 07:42 Ur Barbiturates Screen Negative ng/mL (Negative) 08/18/22 09:30 Ur Phencyclidine Scrn Negative ng/mL (Negative) 08/18/22 09:30 Ur Amphetamines Screen Negative ng/mL (Negative) 08/18/22 09:30 U Benzodiazepines Scrn Negative ng/mL (Negative) 08/18/22 09:30 Urine Cocaine Screen Negative ng/mL (Negative) 08/18/22 09:30 U Marijuana (THC) Screen Negative ng/mL (Negative) 08/18/22 09:30 Ethyl Alcohol < 10 mg/dL (0-10) 08/18/22 07:42 Adenovirus (PCR) Not detected (NOT DETECT) 08/18/22 08:05 C. pneumoniae DNA (PCR) Not detected (NOT DETECT) 08/18/22 08:05 Coronavirus 229E (PCR) Not detected (NOT DETECT) 08/18/22 08:05 Human Metapneumovir PCR Not detected (NOT DETECT) 08/18/22 08:05 Influenza A (H1) PCR Not detected (NOT DETECT) 08/18/22 08:05 Influenza A (H3) PCR Not detected (NOT DETECT) 08/18/22 08:05 Influenza Type A (PCR) Not detected (NOT DETECT) 08/18/22 08:05 Influenza Type B (PCR) Not detected (NOT DETECT) 08/18/22 08:05 M. pneumoniae (PCR) Not detected (NOT DETECT) 08/18/22 08:05 Parainfluenza 1 (PCR) Not detected (NOT DETECT) 08/18/22 08:05 Parainfluenza 2 (PCR) Not detected (NOT DETECT) 08/18/22 08:05 Parainfluenza 3 (PCR) Not detected (NOT DETECT) 08/18/22 08:05 Parainfluenza 4 (PCR) Not detected (NOT DETECT) 08/18/22 08:05 RSV Type A (PCR) Not detected (NOT DETECT) 08/18/22 08:05 RSV Type B (PCR) Not detected (NOT DETECT) 08/18/22 08:05 Entero/Rhino (PCR) Not detected (NOT DETECT) 08/18/22 08:05 SARS-CoV-2 (PCR) Not detected (NOT DETECT) 08/18/22 08:05 Critical Care Time Critical Care Time: Critical Care Time: Yes Total Critical Care Time: 50 Attestation: Due to a high probability of clinically significant, possibly life threatening deterioration, the patient required my highest level of attention and preparedness to intervene emergently and I personally spent this critical care time directly and personally managing the patient. This critical care time i ncluded obtaining a history; examining the patient; pulse oximetry; ordering and review of laboratory and imaging studies; arranging urgent treatment with development of a management plan; evaluation of patient's response to treatment; frequent reassessment; and, discussions with other providers as applicable. It was exclusive of separately billable procedures. Discharge Plan Discharge Patient Disposition: Admitted As Inpatient Admit Provider: Salvador Sterling Clinical Impression: Pneumonia, Sepsis, Acute alteration in mental status, Acute respiratory failure with hypoxia Condition: Stable Coding Level of Care Code ED Operations Accountant for g Fwd Exam Comprehensive
--- NOTE | 2022-08-18 07:00 | XRR_ITS ---
PROCEDURE INFORMATION: Exam: XR Chest Exam date and time: 08/18/2022 7:09 AM Age: 57 years old Clinical indication: Cough and shortness of breath; Patient HX: Low pulse oxygen, SOB, AMS; Additional info: AMS, cough TECHNIQUE: Imaging protocol: Radiologic exam of the chest. Views: 1 view. Total images: 1 COMPARISON: CR XR chest 1V portable [id number] 05/18/2022 5:24 AM FINDINGS: Lungs: Coarse chronic pulmonary markings. Nonspecific left lung base opacity favors atelectasis or pneumonia. Pleural spaces: Unremarkable. No pleural effusion. No pneumothorax. Heart/Mediastinum: Heart size is stable when compared to the prior exam. Bones/joints: Osseous structures are unchanged from the prior exam. XR/XR chest 1V portable [id number] IMPRESSION: 1. Coarse chronic pulmonary markings. 2. Nonspecific left lung base opacity favors atelectasis or pneumonia.
--- NOTE | 2022-08-18 07:00 | CT_ITS ---
WS: [id number] CT HEAD TECHNIQUE: Noncontrast CT of the head obtained from the skullbase to the vertex. CLINICAL INFORMATION: ams COMPARISON: CT December 08, 2021 DLP: 1149.[address] scans at [facility] use at least one of these dose optimization techniques: automated e xposure control; mA and/or kV adjustment per patient size (includes targeted exams where dose is matc hed to clinical indication); or iterative reconstruction. FINDINGS: No evidence of intracranial hemorrhage or mass effect. Ventricular system and basal cisterns are redmond nt. Moderate parenchymal volume loss. No extra-axial fluid collections. No evidence of mass or mass e ffect. Normal pierce-white differentiation. Paranasal sinuses and mastoid air cells are well aerated. .Normal visualized soft tissues. CT/CT head wo con* [id number] IMPRESSION: 1. No evidence of intracranial hemorrhage or mass effect. 2. Moderate parenchymal volume loss. 3. No acute intracranial findings.
--- NOTE | 2022-08-18 07:05 | ECG_ITS ---
[facility] Test Date: 2022-08-18 Pat Name: Mayra Ascencio Department: Room: Gender: Female Product Sales Engineer: : 1965 Requested By: Luke Lwory Order Number: [id number] Ashlee MD: Marlee Olmos M.D. Measurements Intervals [place] Rate: 120 P: 1 ND: 181 QRS: -5 QRSD: 95 T: 56 QT: 399 QTc: 565 Interpretive Statements SINUS TACHYCARDIA NONSPECIFIC ST & T-WAVE ABNORMALITY Compared to ECG 05/17/2022 16:15:05 Sinus rhythm no longer present T-wave abnormality still present Electronically Signed On 08-18-2022 12:08:52 CDT by Marlee Olmos M.D. [id number]
[2022-08-18 07:13] LABS: Glucose Point of Care 267 mg/dL (70-110)
[2022-08-18 07:16] LABS: ABG PCO2 40.4 mmHg (35-45); ABG PH Result 7.37 (7.35-7.45); Alveolar-Arterial Oxygen Gradi 3.3 mmHg (5-10); Arterial Blood Gas Hematocrit 34.2 % (37-47); Base Excess ABG -1.8 mmol/L (-2.0-2.0); Blood Gas Allen Test Pos; Blood Gas Operator Identificat CAK; Blood Gas Sample Site Radial, left; Blood Gas Sample Type Arterial; Carboxyhemoglobin 3.2 %THgb (0.4-20.1); HCO3 ABG 23.4 mmol/L (22-26); HGB O2 Sat 91.2 % (95-100); Ionized Calcium Level - ABG 1.2 mmol/L (1.1-1.4); Methemoglobin 0.9 % (0.4-1.5); Oxygen Device NRB; Oxygen Saturation ABG 95.1; PO2 ABG 75.5 mmHg (80.0-100.0); Potassium Level - ABG 3.9 mmol/L (3.5-5.0); Total Hemoglobin 11.2 g/dL (12-16)
[2022-08-18] MEDS: levofloxacin-dextrose 5 % 750 MG/150 ML PREMIX 100 MG IV (07:28)
[2022-08-18] MEDS: ondansetron 2 mg/ML SDV 2 mL 4 MG IVP (07:29)
--- NOTE | 2022-08-18 07:46 | PC.PHAR ---
unable to verify medications with pt-left message for tay escalante [phone]
[2022-08-18] MEDS: sodium chloride 0.9% 1,000 ML 999 ML IV (08:00)
[2022-08-18 08:03] LABS: Basophils # 0.2 10^3/uL (0.0-0.1); Basophils % 0.6 %; Eosinophils # 0.2 10^3/uL (0.0-0.8); Eosinophils % 0.6 %; Hematocrit 36.5 % (37.0-47.0); Hemoglobin 10.8 g/dL (11.5-15.3); Lymphocytes # 1.3 10^3/uL (0.8-4.8); Mean Corpuscular HGB Conc 29.6 g/dL (30.0-36.0); Mean Corpuscular Hemoglobin 21.4 pg (28.0-34.0); Mean Corpuscular Volume 72.3 fl (81-99); Monocytes # 2.2 10^3/uL (0.2-0.9); Monocytes % 8.4 %; Neutrophils % 84.7 %; Nucleated Red Blood Cells % 0 %; Platelet Count 621 10^3/cmm (130-400); Red Blood Count 5.05 10^6/uL (4.1-5.3); Red Cell Distribution Width 18.7 % (12.1-15.1); White Blood Count 26.8 10^3/uL (4.0-10.0)
[2022-08-18 08:29] LABS: Lactic Sepsis W/Reflex 2.1 mmol/L (0.5-2.2)
[2022-08-18 08:31] LABS: Troponin(5th) Baseline 58 ng/L (0-10)
[2022-08-18] MEDS: ipratropium-albuterol 3 mL Neb INHALATION ×5 (08:31→23:36)
[2022-08-18 08:42] LABS: NT Pro B Type Natriuretic Pept 313 pg/mL (0-125); Thyroid Stimulating Hormone 0.54 uIU/mL (0.27-4.20)
[2022-08-18 08:53] LABS: Alanine Aminotransferase 12 U/L (0-33); Albumin Level 3.4 g/dL (3.5-5.2); Alkaline Phosphatase 94 U/L (35-105); Anion Gap 17.9 (5-19); Aspartate Amino Transferase 26 U/L (0-32); Blood Urea Nitrogen 13 mg/dL (6-20); C Reactive Protein 91.6 mg/L (0.0-4.9); Calcium 9.2 mg/dL (8.5-10.5); Carbon Dioxide 23 mmol/L (22-29); Chloride 96 mmol/L (98-107); Globulin 3.5 g/dL (1.3-4.6); Glucose 230 mg/dL (65-115); Osmolality Calculated 283 mOsm/kg (285-295); Potassium 3.9 mmol/L (3.5-5.1); Sodium 133 mmol/L (136-145); Total Bilirubin 0.4 mg/dL (0.15-1.2); Total Protein 6.9 g/dL (6.6-8.7)
[2022-08-18 08:54] LABS: Acetaminophen < 5.0 ug/mL (10-30); Alcohol Level < 10 mg/dL (0-10); Salicylate < 0.3 mg/dL (3-10)
--- NOTE | 2022-08-18 09:01 | ECG_ITS ---
[facility] Test Date: 2022-08-18 Pat Name: Mayra Ascencio Department: Room: Gender: Female Consumer Affairs Manager: : 1965 Requested By: Luke Lowry Order Number: [id number] Ashlee MD: Marlee Olmos M.D. Measurements Intervals [place] Rate: 108 P: 25 WV: 176 QRS: 16 QRSD: 99 T: 78 QT: 346 QTc: 464 Interpretive Statements SINUS TACHYCARDIA MINIMAL ST DEPRESSION [0.025+ mV ST DEPRESSION] Compared to ECG 08/18/2022 07:05:03 ST (T wave) deviation now present T-wave abnormality no longer present Electronically Signed On 08-18-2022 12:13:52 CDT by Marlee Olmos M.D. [id number]
[2022-08-18 09:07] LABS: Ammonia 32 umol/L (11-51)
--- NOTE | 2022-08-18 09:41 | PC.PHAR ---
pt unable to verify medications-pt states she doesnt give herself her insulin states a lady named cece that lives up the road takes care of her meds pt doesnt know amira phone number left message for pts father tay-medications entered are meds from previous entered med list and what the pharmacy states they have filled recently-notes are made in the pharmacy comments
[2022-08-18 09:45] LABS: Reflex Lactate Order REFLEX LACTIC ORDERD
[2022-08-18 09:46] LABS: Amphetamines Screen Urine Negative (Negative); Barbiturates Screen Urine Negative (Negative); Benzodiazepines Screen Urine Negative (Negative); Cocaine Screen Urine Negative (Negative); Opiate Screen Urine Positive (Negative); PCP Screen Urine Negative (Negative); THC Screen Urine Negative (Negative)
[2022-08-18] MEDS: meropenem 1,000 MG in sodium chloride 0.9% (plus) 50 ML 100 MG IV ×2 (10:03→17:46)
[2022-08-18] MEDS: linezolid premix 600 MG/300 ML PREMIX 300 MG IV ×2 (10:04→22:11)
--- NOTE | 2022-08-18 10:07 | PM.HP ---
Providers/Chief Complaint Admitting Physician: Salvador Sterling MD Primary Care Provider: KATHY Stewart Chief Complaint: AMS History of Present Illness Mayra Ascencio is a 57 year old female presenting to the emergency department with respiratory distress. There was concern of confusion as well, encephalopathy. She has been having some breathing issues at least for the last week. She was diagnosed with acute bronchitis by her primary care provider and given Levaquin on August 09. She states she has been coughing quite a bit. No hemoptysis. No vomiting. She reports some chills. She has definitely been short of breath. She typically uses just 2 L of oxygen at night for longstanding COPD. She denies any recent ill contacts. She had been released from wound care several months ago for lower extremity wound on her right foot. Previous cultures had indicated MRSA and ESBL. She also had past history of gluteal cleft wound. She denies any chest discomfort. In the emergency department she got a dose of Levaquin, and then a dose of meropenem and linezolid. She received a breathing treatment. She received Solu-Medrol. She received a 1 L bolus of saline. Review of Systems General: Reports: 10 or more systems reviewed and unremarkable except in HPI and below Const: Reports: fever(s); Denies: chills Eyes: Denies: change in vision ENMT: Denies: throat pain Card: Denies: chest pain Resp: Reports: dyspnea and productive cough; Denies: non-productive cough GI: Denies: abdominal pain : Denies: flank pain Musc: Denies: neck pain Skin/Breast: Denies: rash or pruritus Neuro: Reports: confusion; Denies: headache(s) Psych: Denies: anxiety or depression Endo: Denies: polyuria Xavier/Lymph: Denies: easy bruising All/Imm: Denies: urticaria Medications/Allergies Home Medications Medication Instructions Recorded Confirmed Last Taken Type acetaminophen 325 mg tablet 650 mg PO Q6H PRN Mild/Mod Pain Or 10/16/20 08/18/22 04/21/21 Rx Temp >/= 101 #30 tabs evolocumab 140 mg/mL subcutaneous 140 mg SUBCUT .e40tven #2 mL 03/05/22 08/18/22 Unknown Rx pen injector (Josefa Hernandez) losartan 50 mg tablet 50 mg PO DAILY@0800 #180 tabs 03/05/22 08/18/22 05/17/22 07:00 Rx pen needle, diabetic 31 gauge x #100 ea 03/05/22 08/18/22 Unknown Rx 5/16 (Comfort EZ Pen Tim[place]lake) pen needle, diabetic 32 gauge x #100 ea 03/05/22 08/18/22 Unknown Rx 5/32 (Comfort EZ Pen [place]) ticagrelor 90 mg tablet (Brilinta) 90 mg PO BID@08,21 #180 tabs 03/05/22 08/18/22 05/17/22 07:00 Rx naloxone 4 mg/actuation nasal spray 4 mg intranasal Q2M PRN opioid 03/11/22 08/18/22 Unknown Rx overdose #2 ea pregabalin 150 mg capsule (Lyrica) 150 mg PO BID #60 caps 04/30/22 08/18/22 05/17/22 07:00 Rx albuterol sulfate 2.5 mg/3 mL 2.5 mg inhalation Q4H PRN 05/17/22 08/18/22 Unknown History (0.083 %) solution for nebulization Shortness Of Breath albuterol sulfate 90 mcg/actuation 1 puff inhalation Q6H PRN 05/17/22 08/18/22 Unknown History aerosol inhaler Shortness Of Breath aspirin 81 mg tablet,delayed 81 mg PO QAM 05/17/22 08/18/22 05/17/22 07:00 History release (Adult Aspirin Regimen) atorvastatin 80 mg tablet 80 mg PO QAM 05/17/22 08/18/22 05/17/22 07:00 History isosorbide mononitrate 60 mg 60 mg PO QAM 05/17/22 08/18/22 05/17/22 History tablet,extended release 24 hr metoprolol succinate 25 mg 25 mg PO QAM 05/17/22 08/18/22 05/17/22 History tablet,extended release 24 hr nitroglycerin 0.4 mg sublingual 0.4 mg sublingual Q5M PRN Chest 05/17/22 08/18/22 Unknown History tablet (Nitrostat) Pain pantoprazole 40 mg tablet,delayed 40 mg PO QAM 05/17/22 08/18/22 05/17/22 History release insulin detemir U-100 100 unit/mL 25 unit (0.25 mL) SUBCUT QAM #15 mL 07/07/22 08/18/22 Unknown Rx (3 mL) subcutaneous pen (Levemir FlexTouch U-100 Insulin) cyclobenzaprine 10 mg tablet 10 mg PO TID PRN muscle spasm 30 07/08/22 08/18/22 Unknown Rx days #90 tabs chlorpheniramine 4 5 ml PO Q6H PRN cold symptoms #160 08/09/22 08/18/22 Unknown Rx mg-phenylephrine 10 mg-DM 15 mg/5 mL mL oral liquid (Ed A-Hist DM) empagliflozin 25 mg tablet 25 mg PO DAILY #30 tabs 08/09/22 08/18/22 Unknown Rx (Jardiance) levofloxacin 750 mg tablet 750 mg PO DAILY 7 days #7 tabs 08/09/22 08/18/22 Unknown Rx duloxetine 60 mg capsule,delayed 60 mg PO DAILY 08/18/22 08/18/22 Unknown History release furosemide 40 mg tablet 40 mg PO DAILY PRN Edema 08/18/22 08/18/22 Unknown History insulin lispro 100 unit/mL 3 unit SUBCUT AC 08/18/22 08/18/22 Unknown History subcutaneous pen (Humalog KwikPen (U-100) Insulin) levetiracetam 500 mg tablet 500 mg PO BID 08/18/22 08/18/22 Unknown History morphine 15 mg immediate release 15 - 30 mg PO .Q4-6H PRN Pain 08/18/22 08/18/22 Unknown History tablet oxybutynin chloride 5 mg 5 mg PO DAILY 08/18/22 08/18/22 Unknown History tablet,extended release 24 hr quetiapine 200 mg tablet 200 mg PO DAILY 08/18/22 08/18/22 Unknown History semaglutide 3 mg tablet (Rybelsus) 3 mg PO QAM 08/18/22 08/18/22 Unknown History tiotropium bromide 18 mcg capsule 1 cap inhalation DAILY 08/18/22 08/18/22 Unknown History with inhalation device (Spiriva with HandiHaler) triamcinolone acetonide 0.1 % 1 applic topical BID PRN poison nikki 08/18/22 08/18/22 Unknown History topical cream Allergies Allergy/AdvReac Type Severity Reaction Status Date / Time fentanyl Allergy Unknown ALGY-Difficulty Verified 08/18/22 07:06 Breathing adhesive Allergy Unknown Verified 08/18/22 07:06 clindamycin Allergy ADR-Itching Verified 08/18/22 07:06 codeine Allergy Unknown Verified 08/18/22 07:06 hydrocodone Allergy Unknown Verified 08/18/22 07:06 latex Allergy ALGY-Swell Verified 08/18/22 07:06 Lip/Tongue/Throat naproxen [From Naprosyn] Allergy Unknown Verified 08/18/22 07:06 nut - unspecified Allergy ALGY-Anaphy Verified 08/18/22 07:06 laxis oxycodone [From Roxicodone] Allergy ADR-Muscle Verified 08/18/22 07:06 Pain Penicillins Allergy Unknown Verified 08/18/22 07:06 sulfamethoxazole Allergy ADR-Migrain Verified 08/18/22 07:06 [From Bactrim] e trimethoprim [From Bactrim] Allergy ADR-Migrain Verified 08/18/22 07:06 e vancomycin Allergy ALGY-Rash Verified 08/18/22 07:06 PFSH Acute PFSH: Medical History (Updated 08/18/22 @ 10:32 by Salvador Sterling MD) (HFpEF) heart failure with preserved ejection fraction Abnormal stress test Acute and chronic respiratory failure with hypoxia Acute exacerbation of CHF (congestive heart failure) Acute hypoxemic respiratory failure Anemia CAD (coronary artery disease) Candidiasis of vagina Carpal tunnel syndrome, right Cellulitis of gluteal region Chest pain Chronic knee pain Chronic left-sided low back pain Chronic obstructive pulmonary disease, unspecified Chronic pain of left knee Chronic, continuous use of opioids Compression fracture of L2 lumbar vertebra COPD (chronic obstructive pulmonary disease) COPD exacerbation Coronary artery disease due to type 2 diabetes mellitus Current every day smoker CVA (cerebral vascular accident) Diabetes type 2, uncontrolled Diabetic foot ulcer Dyslipidemia Dyspnea Elevated troponin Encounter for long-term opiate analgesic use Essential hypertension Exposure to COVID-19 virus Fibromyalgia, primary History of CVA (cerebrovascular accident) History of hypoglycemic coma Hoarseness of voice Hyperlipidemia, mixed Hypoxemia Insomnia Intervertebral disc disorder of lumbar region with myelopathy Leukocytosis Low back pain radiating to both legs Lumbosacral spondylosis without myelopathy Needs flu shot Neuropathy NSTEMI (non-ST elevated myocardial infarction) Thought to be secondary to plaque rupture. Angiogram July 04 no flow-limiting lesions, or restenosis of previous stent from April 2020 Numbness and tingling in both hands Obesity (BMI 35.0-39.9 without comorbidity) Opioid contract exists Osteoarthritis of left knee Osteoarthritis of spine at multiple levels Pericardial effusion Peripheral sensory neuropathy due to type 2 diabetes mellitus Pneumonia Pressure ulcer Prosthetic joint infection Right arm weakness Right hip pain Sacral pressure ulcer Seizure Seizure disorder Seizures Sepsis Septic arthritis of knee, left Stenosis of left internal carotid artery with cerebral infarction Syncope Type 2 diabetes mellitus with diabetic autonomic (poly)neuropathy Unstable angina Urinary incontinence Urinary tract infection UTI (urinary tract infection) Vitamin D deficiency Surgical History History of arthroscopic surgery of elbow BILATERAL History of coronary angiogram Angiogram April 2020 with 90% circumflex lesion, drug-eluting stent placed by Dr. Jerome S/p bilateral carpal tunnel release S/P hysterectomy S/P knee surgery RIGHT S/P lumbar fusion DR. Shreya ZAYAS IN [place], [place] L4-L5, L5-S1 Status post left knee replacement Status post lumbar laminectomy Family History Other CAD (coronary artery disease) Cancer Diabetes Social History Smoking and tobacco status: current every day smoker cigarettes Packs smoked per day: 0.5 Years cigarettes smoked: 10 [ Other cigarette details: PER PATIENT REPORT] Smoking risk assessment/counseling performed?: Yes Alcohol intake: former Desire information about alcohol rehabilitation?: No Counseling given: No Desire information about substance/drug rehabilitation?: No Counseling given: No Caregiver/support person: No Lives independently: Yes Household members: family and other Details: son Housing: Manufactured/Mobile home Marital status: Unknown Marital status details: She and son state she is not service: No Current occupational status: unemployed Pets and animals: Yes History of recent travel: No Current gender identity: Female Vitals/I&O/Wt Last Vital Signs Temp 99.3 F 08/18/22 06:55 Pulse 108 H 08/18/22 09:30 Resp 18 08/18/22 09:30 BP 117/74 08/18/22 09:30 Pulse Ox 93 08/18/22 09:30 O2 Del Method 08/18/22 08:30 O2 Flow Rate 50 08/18/22 08:30 FiO2 40 08/18/22 08:30 08/17/22 08/18/22 08/18/22 22:59 06:59 14:59 Intake Total 1150 / 1150 Balance 1150 / 1150 Weight last 48 hrs Weight 81.647 kg Physical Exam Narrative: General exam is a conversant white female in moderate respiratory distress on high flow oxygen with an FiO2 50% HEENT: Atraumatic normocephalic. Pupils equally round. Oropharynx clear. Mucous membranes dry Neck is supple no lymphadenopathy or thyromegaly. Cardiovascular: Tachycardic, no murmur Lungs coarse bilaterally. Few wheezes Abdomen is soft nontender positive bowel sounds. No obvious organomegaly exam demonstrates a Ashford, cloudy urine Extremities no cyanosis clubbing or edema, cap refill brisk Skin no rash Back I did not evaluate but will reevaluate later secondary to past history of sacral decub Neuro: Right upper extremity hand strength weak, which she reports is baseline. No other obvious weakness detected. She reports this may be secondary to previous CVA or carpal tunnel. Urinary Catheter Management: Ashford: Cath Placed During This Visit: yes Urinary Catheter Date of Insertion: 08/18/22 Urinary Catheter Time of Insertion: 09:30 Sepsis: Is patient septic: Yes Focused sepsis exam performed: Yes Date exam was performed: 08/18/22 Time exam was performed: 10:34 Data : 08/18/22 07:42 08/18/22 07:42 Other Labs: MCV 72, RDW 18 ABG demonstrates pH is 7.37, PCO2 40, PO2 75 LFTs normal Calcium 9.2 Lactic acid 2.1 Procalcitonin 0.2 TSH 0.54 Urine drug screen positive for opiates Anion gap [address] demonstrates no acute findings Chest x-ray demonstrates left lung infiltrate, coarse bilateral markings Blood cultures were drawn EKG demonstrates sinus tachycardia, normal axis, nonspecific ST-T wave changes Ammonia level normal Initial troponin 58 with repeat the same TSH normal Procalcitonin level 0.2 Micro: Microbiology 08/18/22 07:50 Blood Culture - Preliminary Blood SPECIMEN COLLECTED 08/18/22 07:42 Blood Culture - Preliminary Blood SPECIMEN COLLECTED A&P Assessment and plan (1) Pneumonia: Patient presents with pneumonia, with evidence of sepsis. White blood cell count is markedly elevated, and she is requiring a significant amount of FiO2. Temperature is also slightly elevated at 99.3. Will obtain sputum culture COVID PCR and viral panel ordered Antibiotics consisting of meropenem, linezolid(she is allergic to vancomycin). This broad-spectrum was chosen secondary to her past wound cultures with ESBL and MRSA. Monitor closely for improvement (2) Acute encephalopathy: Patient with history of acute encephalopathy on presentation. This appears to be clearing. This may have been related to her underlying illness as well as hypoxemia at home. CT head no acute changes Monitor for continued improvement (3) Acute respiratory failure with hypoxia: Secondary to pneumonia Wean FiO2 as tolerated Concern if she deteriorates she will need endotracheal intubation and ventilation (4) Acute exacerbation of chronic obstructive pulmonary disease (COPD): Concern for COPD exacerbation. She received Solu-Medrol IV. Continue Solu-Medrol 60 mg IV every 12 hours DuoNeb every 4 hours nebulized Budesonide twice daily Wean steroids as tolerated (5) Anemia: Patient with microcytic anemia Check iron studies May require iron transfusion Does not meet any indications for PRBC currently. (6) Diabetes: Sliding scale insulin Continue long-acting insulin currently as she will be getting IV steroids Initiate clear liquid diet, consistent carb (7) Sepsis: Meets criteria for sepsis with significant elevation white blood cell count, endorgan dysfunction with acute encephalopathy and significant hypoxemia with respiratory distress. Does not qualify for significant amount of fluid boluses. She is not hypotensive. She carries a diagnosis of congestive heart failure, EF preserved. With significant fluid boluses this will likely worsen her respiratory status increasing the chance of need for endotracheal innovation and ventilation. Continue LR at 100 cc/h, and close follow-up of clinical status with nursing. Plan Elevated troponin. Consistent with demand ischemia. Chronic pain. Continue morphine as needed cautiously. Multiple other medical problems as outlined in past medical history Full code currently Lovenox for DVT prophylaxis Attestations Medical Necessity Statement*: Will require greater than 2 midnight stay for evaluation and treatment of pneumonia, sepsis, COPD exacerbation, respiratory failure requiring high amount of heated high flow. Critical Care Time: The high probability of a clinically significant, sudden or life threatening deterioration of the patient's [pulmonary, cardiac, neurologic, infectious disease] system(s) required my full and direct attention, intervention and personal management. The critical care time is as shown. This time is in addition to time spent performing any reported procedures but includes the following: [x] Data and vital sign review and interpretation [x] Patient assessment, examination and intervention [x] Documentation [x] Medication orders and management Critical Care Time (min): 61 Coding Level of Care Code Acute Insurance Account Assistant for [facility] Fwd Diagnoses Pneumonia J18.9 Acute encephalopathy G93.40 Acute respiratory failure with hypoxia J96.01 Acute exacerbation of chronic obstructive pulmonary disease (COPD) J44.1 Anemia D64.9 Diabetes E11.9 Sepsis A41.9
[2022-08-18 10:27] LABS: Troponin 5 2HR 57.87 ng/L (0-10)
[2022-08-18 10:28] LABS: Troponin 5 2HR Delta -0.13 ABS# (0-10)
[2022-08-18 10:41] LABS: Ferritin 39 ng/mL (15-150); Iron 13 ug/dL (37-145); Percent Saturation 3.7 % (20-50); Total Iron Binding Capacity 349 mcg/dl; Unsaturated Iron Binding 336 ug/dL (112-347)
--- NOTE | 2022-08-18 11:47 | PC.NURSE ---
Pt had 22g Iv left hand by EMS, 18G IV placed in right AC.
[2022-08-18 11:52] LABS: Lactic Acid level (Lactate) 1.4 mmol/L (0.5-2.2)
[2022-08-18 12:21] LABS: Add Urine Microscopic? YES; Bilirubin Urine Neg (Negative); Blood Urine 2+ (Negative); Glucose Urine UA 4+ (Normal); Ketones Urine 1+ (Negative); Leukocyte Esterase Urine 1+ (Negative); Nitrate Urine Negative (Negative); Protein Urine Neg (Negative); Urine Appearance Cloudy (CLEAR); Urine Color Yellow (Yellow); Urobilinogen Urine Norm (Negative); pH Urine 5 (5-7)
[2022-08-18 12:22] LABS: RBC Urine 0-4 /hpf (0-2); WBC Urine >100 /hpf (0-5)
[2022-08-18 12:23] LABS: Add Urine Culture? Yes; Bacteria Urine 3+ /hpf; Mucus Urine 1+ /hpf
[2022-08-18 12:37] LABS: Glucose Point of Care 324 mg/dL (70-110)
[2022-08-18] MEDS: insulin lispro 100 unit/1 mL SUBCUT ×3 (12:39→20:46)
[2022-08-18] MEDS: enoxaparin 40 mg/0.4 mL Syringe SUBCUT (12:39)
[2022-08-18] MEDS: lactated ringers 1,000 ML 100 ML IV ×2 (12:40→22:12)
--- NOTE | 2022-08-18 13:01 | ECG_ITS ---
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 Measurements Intervals [place] Rate: 103 P: 39 OK: 181 QRS: 8 QRSD: 104 T: 59 QT: 368 QTc: 484 Interpretive Statements SINUS TACHYCARDIA LOW QRS VOLTAGE IN PRECORDIAL LEADS [QRS DEFLECTION < 1.0 mV IN CHEST LEADS] NONSPECIFIC ST & T-WAVE ABNORMALITY Compared to ECG 08/18/2022 09:13:27 Low QRS voltage now present T-wave abnormality now present ST (T wave) deviation no longer present Electronically Signed On 08-18-2022 16:26:55 CDT by Marlee Olmos M.D. [id number]
[2022-08-18 13:03] LABS: Adenovirus Not Detected (NOT DETECT); Chlamydia Pneumoniae Not Detected (NOT DETECT); Coronavirus 229E,HKU1,NL63,OC4 Not Detected (NOT DETECT); Human Metapneumovirus Not Detected (NOT DETECT); Human Rhinovirus/Enterovirus Not Detected (NOT DETECT); Influenza A Not Detected (NOT DETECT); Influenza A H1 Not Detected (NOT DETECT); Influenza A H1-2009 Not Detected (NOT DETECT); Influenza A H3 Not Detected (NOT DETECT); Influenza B Not Detected (NOT DETECT); Mycoplasma Pneumoniae Not Detected (NOT DETECT); Parainfluenza Virus Type 1 Not Detected (NOT DETECT); Parainfluenza Virus Type 2 Not Detected (NOT DETECT); Parainfluenza Virus Type 3 Not Detected (NOT DETECT); Parainfluenza Virus Type 4 Not Detected (NOT DETECT); Respiratory Syncytial Virus A Not Detected (NOT DETECT); Respiratory Syncytial Virus B Not Detected (NOT DETECT); SARS-COV-2 Not Detected (NOT DETECT)
--- NOTE | 2022-08-18 13:06 | US_ITS ---
WS: [id number] ULTRASOUND RENAL TECHNIQUE: Ultrasound examination of both kidneys. CLINICAL INFORMATION: UTI, possible pyelo, COMPARISON: None. FINDINGS: RIGHT: Right kidney is normal in size and appearance. Echogenicity: Normal. Cortical thickness: 1.8 cm; Normal. Hydronephrosis: None. Perinephric fluid: None. Right kidney measures: 11.8 cm x 6.0 cm x 4.8 cm. LEFT: Left kidney is normal in size and appearance. Echogenicity: Normal. Cortical thickness: 1.4 cm; Normal. Hydronephrosis: None. Perinephric fluid: None. Left kidney measures: 12.4 cm x 4.3 cm x 5.3 cm. Normal visualized aorta. Bladder is decompressed. Ashford catheter. US/US renal BI* [id number] IMPRESSION: Normal renal ultrasound.
[2022-08-18 14:20] LABS: Troponin 5 6HR 38.12 ng/L (0-10)
[2022-08-18 17:41] LABS: Glucose Point of Care 255 mg/dL (70-110)
[2022-08-18] MEDS: levETIRAcetam 500 mg Tablet PO (17:46)
[2022-08-18] MEDS: pregabalin 150 mg Capsule PO (17:46)
[2022-08-18] MEDS: budesonide 0.5 mg/2 mL Neb INHALATION (19:34)
[2022-08-18 20:37] LABS: Glucose Point of Care 299 mg/dL (70-110)
[2022-08-18] MEDS: ticagrelor 90 mg Tablet PO (20:45)
[2022-08-19] VITALS (81 sets, daily range): BP systolic 76–145; BP diastolic 41–108; PULSE 86–112; RESP 12–29; TEMP 36.6–37.1; O2SAT 90–100
[2022-08-19] MEDS: morphine IR 15 mg Tablet PO ×3 (01:37→21:32)
[2022-08-19] MEDS: meropenem 1,000 MG in sodium chloride 0.9% (plus) 50 ML 100 MG IV ×3 (01:40→17:06)
[2022-08-19] MEDS: ipratropium-albuterol 3 mL Neb INHALATION ×5 (03:24→20:00)
[2022-08-19 04:35] LABS: Basophils # 0.1 10^3/uL (0.0-0.1); Basophils % 0.2 %; Hematocrit 33.1 % (37.0-47.0); Hemoglobin 9.9 g/dL (11.5-15.3); Lymphocytes # 2.2 10^3/uL (0.8-4.8); Lymphocytes % 7.8 %; Mean Corpuscular HGB Conc 29.9 g/dL (30.0-36.0); Mean Corpuscular Hemoglobin 21.3 pg (28.0-34.0); Mean Corpuscular Volume 71.3 fl (81-99); Mean Platelet Volume 9.1 fL (7.4-10.4); Monocytes # 1.6 10^3/uL (0.2-0.9); Monocytes % 5.5 %; Neutrophils # 24.27 10^3/uL (1.8-7.7); Neutrophils % 85.5 %; Nucleated Red Blood Cells % 0 %; Platelet Count 612 10^3/cmm (130-400); Red Blood Count 4.64 10^6/uL (4.1-5.3); Red Cell Distribution Width 18.3 % (12.1-15.1); White Blood Count 28.4 10^3/uL (4.0-10.0)
[2022-08-19 05:01] LABS: Alanine Aminotransferase 11 U/L (0-33); Albumin Level 2.9 g/dL (3.5-5.2); Alkaline Phosphatase 82 U/L (35-105); Anion Gap 13.2 (5-19); Aspartate Amino Transferase 18 U/L (0-32); Blood Urea Nitrogen 13 mg/dL (6-20); Calcium 9.1 mg/dL (8.5-10.5); Carbon Dioxide 25 mmol/L (22-29); Chloride 100 mmol/L (98-107); Globulin 3.5 g/dL (1.3-4.6); Glomerular Filtration Rate 103.8 mL/min (90-130); Glucose 184 mg/dL (65-115); Magnesium 2.2 mg/dL (1.7-2.3); Osmolality Calculated 283 mOsm/kg (285-295); Potassium 4.2 mmol/L (3.5-5.1); Sodium 134 mmol/L (136-145); Total Bilirubin 0.3 mg/dL (0.15-1.2); Total Protein 6.4 g/dL (6.6-8.7)
[2022-08-19] MEDS: pantoprazole DR 40 mg Tablet PO (06:09)
[2022-08-19] MEDS: metoprolol succinate ER (24 HR) 25 mg Tablet PO (06:10)
[2022-08-19] MEDS: aspirin 81 mg EC Tablet PO (06:10)
[2022-08-19] MEDS: atorvastatin 40 mg Tablet 80 MG PO (06:11)
[2022-08-19] MEDS: isosorbide mononitrate ER 60 mg Tablet PO (06:12)
[2022-08-19] MEDS: ticagrelor 90 mg Tablet PO ×2 (07:16→21:10)
[2022-08-19] MEDS: losartan 50 mg Tablet PO (07:17)
[2022-08-19 07:30] LABS: Glucose Point of Care 181 mg/dL (70-110)
[2022-08-19] MEDS: insulin lispro 100 unit/1 mL SUBCUT ×4 (07:32→21:10)
[2022-08-19] MEDS: lactated ringers 1,000 ML 100 ML IV (07:32)
[2022-08-19] MEDS: budesonide 0.5 mg/2 mL Neb INHALATION ×2 (07:45→20:00)
[2022-08-19] MEDS: levETIRAcetam 500 mg Tablet PO ×2 (08:53→17:06)
[2022-08-19] MEDS: linezolid premix 600 MG/300 ML PREMIX 300 MG IV ×2 (08:53→21:34)
[2022-08-19] MEDS: duloxetine 60 mg Capsule PO (08:53)
[2022-08-19] MEDS: quetiapine 100 mg Tablet 200 MG PO ×2 (08:53→21:34)
[2022-08-19] MEDS: pregabalin 150 mg Capsule PO ×2 (08:53→17:06)
--- NOTE | 2022-08-19 10:32 | PM.PN ---
Subjective Subjective: Mayra reports she is doing better. Denies being short of breath currently. No chest pain. Hungry this morning. Medications: Reviewed: Yes Vitals/I&O/Wt Last Vital Signs Temp 98.6 F 08/19/22 00:00 Pulse 105 H 08/19/22 09:30 Resp 20 H 08/19/22 09:30 BP 119/71 08/19/22 09:30 Pulse Ox 96 08/19/22 09:30 O2 Del Method 08/19/22 09:30 O2 Flow Rate 40 08/19/22 07:48 FiO2 40 08/19/22 07:48 08/18/22 08/19/22 08/19/22 22:59 06:59 14:59 Intake Total 2423.333 / 3573.333 295 / 3868.333 1383.333 / 1383.333 Output Total 1200 / 3050 1950 / 5000 Balance 1223.333 / 523.333 -1655 / -2499.105 2591.333 / 1383.333 Weight last 48 hrs Weight 81.647 kg Weight 81.647 kg Weight 81.647 kg Physical Exam Narrative: General exam conversant, no distress Neck is supple no lymphadenopathy or thyromegaly. Cardiovascular: Tachycardic, no murmur Lungs coarse bilaterally. Few wheezes Abdomen is soft nontender positive bowel sounds. No obvious organomegaly exam demonstrates a Ashford, cloudy urine Extremities no cyanosis clubbing or edema, cap refill brisk Skin no rash Back no decubitus Urinary Catheter Management: Ashford: Cath Placed During This Visit: yes Reason for Continuing Indwelling Catheter: Accurate Measurement of Urinary Output in Critically Ill Patients Urinary Catheter Date of Insertion: 08/18/22 Urinary Catheter Time of Insertion: 09:30 Data : 08/19/22 03:57 08/19/22 03:57 Micro: Microbiology 08/18/22 07:50 Blood Culture - Preliminary Blood NEGATIVE TO DATE 08/18/22 07:42 Blood Culture - Preliminary Blood NEGATIVE TO DATE A&P Assessment and plan (1) Pneumonia: Patient presents with pneumonia, with evidence of sepsis. White blood cell count is markedly elevated, and she is requiring a significant amount of FiO2. COVID PCR negative, viral panel negative Antibiotics consisting of meropenem, linezolid(she is allergic to vancomycin). This broad-spectrum was chosen secondary to her past wound cultures with ESBL and MRSA. Await cultures She is vastly improving and oxygen is weaning. (2) Acute encephalopathy: Patient with history of acute encephalopathy on presentation. She is now back to baseline CT head no acute changes (3) Acute respiratory failure with hypoxia: Resolving. FiO2 weaned significantly. (4) Acute exacerbation of chronic obstructive pulmonary disease (COPD): Improved. Discontinue Solu-Medrol Prednisone 40 mg daily DuoNeb every 4 hours nebulized Budesonide twice daily (5) Anemia: Patient with microcytic anemia Iron significantly low Iron transfusion today (6) Diabetes: Sliding scale insulin Continue long-acting insulin currently as she will be getting IV steroids Initiate clear liquid diet, consistent carb (7) Sepsis: Meets criteria for sepsis with significant elevation white blood cell count, endorgan dysfunction with acute encephalopathy and significant hypoxemia with respiratory distress. Does not qualify for significant amount of fluid boluses. She is not hypotensive. She carries a diagnosis of congestive heart failure, EF preserved. With significant fluid boluses this will likely worsen her respiratory status increasing the chance of need for endotracheal innovation and ventilation. She appears to be improving significantly Discontinue IV fluid Transfer out of ICU (8) UTI (urinary tract infection): Await urine culture Continue IV antibiotics Plan Elevated troponin. Consistent with demand ischemia. Chronic pain. Continue morphine as needed cautiously. Multiple other medical problems as outlined in past medical history Full code currently Lovenox for DVT prophylaxis Attestations Medical Necessity Statement*: Needs continued hospitalization for IV antibiotics secondary to sepsis. Coding Level of Care Code Acute Big Data Engineer [facility] Diagnoses Pneumonia J18.9 Acute encephalopathy G93.40 Acute respiratory failure with hypoxia J96.01 Acute exacerbation of chronic obstructive pulmonary disease (COPD) J44.1 Anemia D64.9 Diabetes E11.9 Sepsis A41.9 UTI (urinary tract infection) N39.0
[2022-08-19] MEDS: sodium chloride 0.9% 250 ML IV (11:00)
[2022-08-19] MEDS: iron sucrose 200 MG in sodium chloride 0.9% (100 ml) 100 ML 220 MG IV (11:12)
[2022-08-19 12:12] LABS: Glucose Point of Care 284 mg/dL (70-110)
[2022-08-19] MEDS: enoxaparin 40 mg/0.4 mL Syringe SUBCUT (12:17)
--- NOTE | 2022-08-19 12:50 | PC.CHAP ---
Pastoral Care Encounter/Spiritual Assessment Type of Contact [] Declined naval engineer visit [] Patient/Family/Request visit [] Outpatient visit [] Follow-up visit [] Physician referral [] Code/Alert [x] Routine visit [] Staff referral [] Actively dying [] Patient sleeping [] Family support [] [] Out of room [] Palliative care [] [] Receiving care in room [] Pre-surgical visit [] Trauma [] Long length of stay [x] ICU visit [] Other: Relational/Emotional Strength [] Patient feels connected with others/family/visitors/staff [] Distress [] Loneliness/isolation [] Abandonment Spirituality of Patient [] Person of Mary [] Attends Christianity of their Mary [] Believes in Prayer [] Reads Bible or Latter-Day materials [] There are Spiritual issues to be addressed Inspector Balance Wheel Motion Interventions [x] Prayer [] Active listening [] Non-anxious presence [] Spiritual/emotional support [] Crisis/trauma care [] Spiritual counseling [] Bereavement support [] Provided bereavement packet [] Provided Bible/devotional materials [] Provided toy/stuffed animal, coloring book to patient or family member [] Provided Communion [] Anointing/[place] [] Salvation [x] Completed spiritual assessment [] Other: Impact on Illness or Injury [] Angry [] Fearful [] Anxious [] Often cries [] Exhaustion [] Unable to work [] Unable to attend adventism [] Unable to walk/stand [] Unable to read [] Unable to drive [] Unable to eat/drink [] Unable to sleep [] Unable to be with family [] Patient intubated [] Other: Summary Time spent with patient
[2022-08-19] MEDS: acetaminophen 650 mg/20.3 mL UDC PO (14:01)
--- NOTE | 2022-08-19 16:42 | PC.NURSE ---
Dr. Sterling notified of blood pressures with MAPs frequently in mid to high 60's. Orders received to check manual as patient is asymptomatic to low pressures. Verified with two RN's with manual cuff pressures remain soft. See chart for vitals. Patient has no complaints at this time and Dr. Sterling wishes to continue with transfer to second floor.
[2022-08-19 17:08] LABS: Glucose Point of Care 385 mg/dL (70-110)
--- NOTE | 2022-08-19 17:42 | PC.NURSE ---
Patient transferred to second floor room 250-1. 2nd floor nurse at bedside upon transfer. Patient ambulated from wheelchair to bed and was resting comfortably, watching TV at the time of transfer. Patient chart left with staff at front office manager.
[2022-08-19 20:49] LABS: Glucose Point of Care 309 mg/dL (70-110)
[2022-08-19 20:49] LABS: Glucose Point of Care 390 mg/dL (70-110)
[2022-08-20] VITALS (18 sets, daily range): BP systolic 90–130; BP diastolic 55–76; PULSE 55–103; RESP 16–20; TEMP 36.4–36.7; O2SAT 87–98
[2022-08-20] MEDS: ipratropium-albuterol 3 mL Neb INHALATION ×7 (00:31→23:34)
[2022-08-20] MEDS: meropenem 1,000 MG in sodium chloride 0.9% (plus) 50 ML 100 MG IV ×3 (01:23→18:11)
[2022-08-20 05:08] LABS: Basophils # 0.1 10^3/uL (0.0-0.1); Basophils % 0.2 %; Eosinophils # 0.1 10^3/uL (0.0-0.8); Eosinophils % 0.2 %; Hematocrit 32.3 % (37.0-47.0); Hemoglobin 9.3 g/dL (11.5-15.3); Lymphocytes # 4.1 10^3/uL (0.8-4.8); Lymphocytes % 13.8 %; Mean Corpuscular HGB Conc 28.8 g/dL (30.0-36.0); Mean Corpuscular Hemoglobin 21.1 pg (28.0-34.0); Mean Corpuscular Volume 73.4 fl (81-99); Mean Platelet Volume 9.1 fL (7.4-10.4); Monocytes # 2.3 10^3/uL (0.2-0.9); Monocytes % 7.8 %; Neutrophils # 22.84 10^3/uL (1.8-7.7); Neutrophils % 77.1 %; Nucleated Red Blood Cells % 0.1 %; Platelet Count 629 10^3/cmm (130-400); Red Cell Distribution Width 18.6 % (12.1-15.1); White Blood Count 29.6 10^3/uL (4.0-10.0)
[2022-08-20] MEDS: atorvastatin 40 mg Tablet 80 MG PO (05:18)
[2022-08-20] MEDS: metoprolol succinate ER (24 HR) 25 mg Tablet PO (05:18)
[2022-08-20] MEDS: aspirin 81 mg EC Tablet PO (05:18)
[2022-08-20] MEDS: pantoprazole DR 40 mg Tablet PO (05:18)
[2022-08-20] MEDS: isosorbide mononitrate ER 60 mg Tablet PO (05:19)
[2022-08-20 05:45] LABS: Anion Gap 13.9 (5-19); Blood Urea Nitrogen 19 mg/dL (6-20); Calcium 9.1 mg/dL (8.5-10.5); Carbon Dioxide 25 mmol/L (22-29); Chloride 101 mmol/L (98-107); Glomerular Filtration Rate 103.8 mL/min (90-130); Glucose 154 mg/dL (65-115); Osmolality Calculated 287 mOsm/kg (285-295); Potassium 3.9 mmol/L (3.5-5.1); Sodium 136 mmol/L (136-145)
[2022-08-20 06:21] LABS: Glucose Point of Care 166 mg/dL (70-110)
--- NOTE | 2022-08-20 07:05 | PC.NURSE ---
[facility]
--- NOTE | 2022-08-20 07:37 | PM.PN ---
Subjective Subjective: Mayra reports that she is feeling okay but this morning. She denies any shortness of breath. No chest discomfort. Ready to have her [place] out. Medications: Reviewed: Yes Vitals/I&O/Wt Last Vital Signs Temp 97.9 F 08/20/22 03:38 Pulse 97 08/20/22 06:14 Resp 16 08/20/22 03:38 BP 122/69 08/20/22 03:38 Pulse Ox 91 08/20/22 03:38 O2 Del Method 08/20/22 03:38 O2 Flow Rate 3 08/20/22 03:38 FiO2 40 08/19/22 07:48 08/19/22 08/20/22 08/20/22 22:59 06:59 14:59 Intake Total 1050 / 3363.333 350 / 3713.333 Output Total 1500 / 2500 1500 / 4000 Balance -450 / 863.333 -1150 / -286.667 Weight last 48 hrs Weight 81.647 kg Weight 81.647 kg Physical Exam Narrative: General exam conversant, no distress. Currently on 3 L of oxygen. Neck is supple no lymphadenopathy or thyromegaly. Cardiovascular: Tachycardic, no murmur Lungs coarse at the bases. No wheezes. Abdomen is soft nontender positive bowel sounds. No obvious organomegaly exam demonstrates relatively clear urine Extremities no cyanosis clubbing or edema, cap refill brisk Skin no rash Back no decubitus Urinary Catheter Management: [place]: Cath Placed During This Visit: yes Reason for Continuing Indwelling Catheter: Other Urinary Catheter Date of Insertion: 08/18/22 Urinary Catheter Time of Insertion: 09:30 Data : 08/20/22 04:12 08/20/22 04:12 Micro: Microbiology 08/18/22 19:20 Gram Stain - Final Sputum - Expectorated Sputum 08/18/22 07:50 Blood Culture - Preliminary Blood NEGATIVE TO DATE 08/18/22 07:42 Blood Culture - Preliminary Blood NEGATIVE TO DATE A&P Assessment and plan (1) Pneumonia: Patient presents with pneumonia, with evidence of sepsis. White blood cell count is markedly elevated, and she is requiring a significant amount of FiO2. COVID PCR negative, viral panel negative Antibiotics consisting of meropenem, linezolid(she is allergic to vancomycin). This broad-spectrum was chosen secondary to her past wound cultures with ESBL and MRSA. Awaiting sputum and urine culture Overall she is improved. Down to 3 L of oxygen. White blood cell count still markedly elevated. I suspect this will be decreasing by tomorrow. (2) Acute encephalopathy: Patient with history of acute encephalopathy on presentation. She is now back to baseline CT head no acute changes (3) Acute respiratory failure with hypoxia: Resolving. Now down to 3 L of oxygen (4) Acute exacerbation of chronic obstructive pulmonary disease (COPD): Continue prednisone 40 mg daily DuoNeb every 4 hours nebulized Budesonide twice daily (5) Anemia: Patient with microcytic anemia Iron significantly low Received iron transfusion yesterday August 19. We will repeat today. (6) Diabetes: Continue sliding scale insulin Continue long-acting insulin currently as she will be getting IV steroids Consistent carb diet (7) Sepsis: Meets criteria for sepsis with significant elevation white blood cell count, endorgan dysfunction with acute encephalopathy and significant hypoxemia with respiratory distress. Does not qualify for significant amount of fluid boluses. She is not hypotensive. She carries a diagnosis of congestive heart failure, EF preserved. With significant fluid boluses this will likely worsen her respiratory status increasing the chance of need for endotracheal innovation and ventilation. Significantly improved Continue IV antibiotics Await cultures (8) UTI (urinary tract infection): Await urine culture Continue IV antibiotics Plan Elevated troponin. Consistent with demand ischemia. Chronic pain. Continue morphine as needed cautiously. History of seizure disorder. Continue Keppra. 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
[2022-08-20] MEDS: budesonide 0.5 mg/2 mL Neb INHALATION ×2 (07:47→19:59)
[2022-08-20] MEDS: pregabalin 150 mg Capsule PO ×2 (08:23→18:11)
[2022-08-20] MEDS: duloxetine 60 mg Capsule PO (08:23)
[2022-08-20] MEDS: predniSONE 20 mg Tablet 40 MG PO (08:23)
[2022-08-20] MEDS: levETIRAcetam 500 mg Tablet PO ×2 (08:23→18:11)
[2022-08-20] MEDS: ticagrelor 90 mg Tablet PO ×2 (08:25→21:40)
[2022-08-20] MEDS: insulin lispro 100 unit/1 mL SUBCUT ×4 (08:25→21:40)
[2022-08-20 11:23] LABS: Glucose Point of Care 275 mg/dL (70-110)
[2022-08-20] MEDS: linezolid premix 600 MG/300 ML PREMIX 300 MG IV ×2 (12:13→21:37)
[2022-08-20] MEDS: enoxaparin 40 mg/0.4 mL Syringe SUBCUT (14:31)
[2022-08-20] MEDS: iron sucrose 200 MG in sodium chloride 0.9% (100 ml) 100 ML 220 MG IV (14:32)
[2022-08-20] MEDS: morphine IR 15 mg Tablet PO ×3 (14:42→22:59)
[2022-08-20 16:45] LABS: Glucose Point of Care 395 mg/dL (70-110)
[2022-08-20 21:25] LABS: Glucose Point of Care 294 mg/dL (70-110)
[2022-08-20] MEDS: quetiapine 100 mg Tablet 200 MG PO (21:36)
[2022-08-21] VITALS (19 sets, daily range): BP systolic 112–128; BP diastolic 67–78; PULSE 76–96; RESP 15–24; TEMP 36.5–36.8; O2SAT 90–99; BMI 35.8
[2022-08-21] MEDS: meropenem 1,000 MG in sodium chloride 0.9% (plus) 50 ML 100 MG IV ×3 (01:43→17:39)
[2022-08-21] MEDS: ipratropium-albuterol 3 mL Neb INHALATION ×6 (03:25→23:24)
[2022-08-21 04:38] LABS: Basophils % 0.2 %; Eosinophils # 0.1 10^3/uL (0.0-0.8); Eosinophils % 0.4 %; Hematocrit 32.5 % (37.0-47.0); Hemoglobin 9.8 g/dL (11.5-15.3); Lymphocytes # 4.9 10^3/uL (0.8-4.8); Lymphocytes % 21.7 %; Mean Corpuscular HGB Conc 30.2 g/dL (30.0-36.0); Mean Corpuscular Hemoglobin 21.3 pg (28.0-34.0); Mean Corpuscular Volume 70.5 fl (81-99); Mean Platelet Volume 9.4 fL (7.4-10.4); Monocytes # 1.7 10^3/uL (0.2-0.9); Monocytes % 7.5 %; Neutrophils # 15.24 10^3/uL (1.8-7.7); Neutrophils % 67.5 %; Nucleated Red Blood Cells % 0 %; Platelet Count 546 10^3/cmm (130-400); Red Blood Count 4.61 10^6/uL (4.1-5.3); Red Cell Distribution Width 18.7 % (12.1-15.1); White Blood Count 22.5 10^3/uL (4.0-10.0)
[2022-08-21 05:14] LABS: Blood Urea Nitrogen 18 mg/dL (6-20); Calcium 9.5 mg/dL (8.5-10.5); Carbon Dioxide 23 mmol/L (22-29); Chloride 100 mmol/L (98-107); Glomerular Filtration Rate 103.8 mL/min (90-130); Glucose 183 mg/dL (65-115); Osmolality Calculated 291 mOsm/kg (285-295); Sodium 137 mmol/L (136-145)
[2022-08-21] MEDS: aspirin 81 mg EC Tablet PO (06:47)
[2022-08-21] MEDS: pantoprazole DR 40 mg Tablet PO (06:47)
[2022-08-21] MEDS: atorvastatin 40 mg Tablet 80 MG PO (06:47)
[2022-08-21] MEDS: metoprolol succinate ER (24 HR) 25 mg Tablet PO (06:47)
[2022-08-21] MEDS: isosorbide mononitrate ER 60 mg Tablet PO (06:47)
[2022-08-21] MEDS: morphine IR 15 mg Tablet PO ×4 (06:47→20:36)
[2022-08-21 06:49] LABS: Glucose Point of Care 185 mg/dL (70-110)
[2022-08-21] MEDS: budesonide 0.5 mg/2 mL Neb INHALATION ×2 (08:11→19:48)
[2022-08-21] MEDS: duloxetine 60 mg Capsule PO (08:27)
[2022-08-21] MEDS: pregabalin 150 mg Capsule PO ×2 (08:27→17:39)
[2022-08-21] MEDS: ticagrelor 90 mg Tablet PO ×2 (08:27→20:33)
[2022-08-21] MEDS: levETIRAcetam 500 mg Tablet PO ×2 (08:27→17:39)
[2022-08-21] MEDS: insulin lispro 100 unit/1 mL SUBCUT ×4 (08:27→21:18)
[2022-08-21] MEDS: predniSONE 20 mg Tablet 40 MG PO (08:28)
[2022-08-21 11:09] LABS: Glucose Point of Care 291 mg/dL (70-110)
[2022-08-21] MEDS: linezolid premix 600 MG/300 ML PREMIX 300 MG IV ×2 (11:39→22:04)
[2022-08-21] MEDS: enoxaparin 40 mg/0.4 mL Syringe SUBCUT (14:10)
--- NOTE | 2022-08-21 14:15 | P.PN_ITS ---
Subjective Subjective: Patient was seen and examined this morning currently denied any shortness of breath, saturating well on 2 to 3 Ls oxygen through nasal cannula, has been afebrile WBC count is trending down. Her other vitals and labs have been reviewed. Medications: Reviewed: Yes Medication Review Details: 3Generic Name Dose Route Start Last Admin Trade Name Freq PRN Reason Stop Dose Admin Acetaminophen 650 mg 08/18/22 17:34 08/19/22 14:01 Acetaminophen 65 0 Mg/20.3 Ml Udc PO 650 mg Q6H PRN Administration MILD PAIN OR INCR EASE TEMP Albuterol/Ipratrop ium 3 ml 08/20/22 08:00 08/21/22 11:20 Ipratropium-Albu terol 3 Ml Neb INHALATION 3 ml Q4H.RESPIRATORY S CH Administration Aspirin 81 mg 08/19/22 06:00 08/21/22 06:47 Aspirin 81 Mg Ec Tablet PO 81 mg QAM YUSUF Administration Atorvastatin Calci um 80 mg 08/19/22 06:00 08/21/22 06:47 Atorvastatin 40 Mg Tablet PO 80 mg QAM YUSUF Administration Budesonide 0.5 mg 08/18/22 20:00 08/21/22 08:11 Budesonide 0.5 M g/2 Ml Neb INHALATION 0.5 mg BID.RESPIRATORY S CH Administration Duloxetine HCl 60 mg 08/19/22 09:00 08/21/22 08:27 Duloxetine 60 Mg Capsule PO 60 mg DAILY YUSUF Administration Enoxaparin Sodium 40 mg 08/18/22 13:00 08/21/22 14:10 Enoxaparin 40 Mg /0.4 Ml Syringe SUBCUT 40 mg Q24H YUSUF Administration Meropenem 1,000 mg / Sodium 50 mls @ 100 mls/ hr 08/18/22 18:00 08/21/22 12:15 Chloride IV Infused Q8H YUSUF Infusion Linezolid 600 mg in 300 mls @ 300 mls/hr 08/18/22 22:00 08/21/22 13:29 Zyvox Premix IV Infused Q12H UYSUF Infusion Protocol Insulin Detemir 25 unit 08/19/22 06:00 08/21/22 06:49 Insulin Detemir 100 Units/1 Ml SUBCUT 25 unit QAM YUSUF Administration Insulin Human Lisp ro 0 unit 08/18/22 12:22 08/21/22 11:40 Insulin Lispro 1 00 Unit/1 Ml SUBCUT 10 unit WM&BEDTIME YUSUF Administration Protocol Isosorbide Mononit rate 60 mg 08/19/22 06:00 08/21/22 06:47 Isosorbide [place] itrate Er 60 Mg Ta blet PO 60 mg QAM YUSUF Administration Levetiracetam 500 mg 08/18/22 18:00 08/21/22 08:27 Levetiracetam 50 0 Mg Tablet PO 500 mg BID YUSUF Administration Metoprolol Succina te 25 mg 08/19/22 06:00 08/21/22 06:47 Metoprolol Succi s[place] Er (24 Hr) 25 Mg Tablet PO 25 mg QAM YUSUF Administration Morphine Sulfate 15 mg 08/18/22 12:22 08/21/22 11:38 Morphine Ir 15 M g Tablet PO 15 mg Q4H PRN Administration PAIN Pantoprazole Sodiu m 40 mg 08/19/22 06:00 08/21/22 06:[address] 40 Mg Tablet PO 40 mg QAM YUSUF Administration Prednisone 40 mg 08/20/22 09:00 08/21/22 08:28 Prednisone 20 Mg Tablet PO 40 mg DAILY YUSUF Administration Pregabalin 150 mg 08/18/22 18:00 08/21/22 08:27 Pregabalin 150 M g Capsule PO 150 mg BID YUSUF Administration Quetiapine Fumarat e 200 mg 08/19/22 21:15 08/20/22 21:36 Quetiapine 100 M g Tablet PO 200 mg BEDTIME YUSUF Administration Ticagrelor 90 mg 08/18/22 21:00 08/21/22 08:27 Ticagrelor 90 Mg Tablet PO 90 mg BID@ YUSUF Administration Vitals/I&O/Wt Last Vital Signs Temp 98.1 F 08/21/22 11:32 Pulse 77 08/21/22 11:32 Resp 16 08/21/22 11:38 BP 112/69 08/21/22 11:32 Pulse Ox 97 08/21/22 11:32 O2 Del Method 08/21/22 11:32 O2 Flow Rate 2 08/21/22 11:32 FiO2 40 08/19/22 07:48 08/20/22 08/21/22 08/21/22 22:59 06:59 14:59 Intake Total 940 / 2250 770 / 3020 2029 Balance 940 / 2250 770 / 3020 2029 Weight last 48 hrs Weight 97.692 kg Physical Exam Const: COMMON NORMALS: patient oriented x3 Resp: OTHER: Minimal bilateral basal crackles, rest clear Cardio: COMMON NORMALS: regular rate, regular rhythm, S1 normal heart sound present, S2 normal heart sound present, No gallops present (Cardio), No murmurs present (Cardio), No rub (Cardio) and Peripheral pulses 2+ throughout RATE: regular rate RHYTHM: regular rhythm HEART SOUNDS: S1 normal heart sound present and S2 normal heart sound present PERIPHERAL PULSES: Peripheral pulses 2+ throughout GI: COMMON NORMALS: Normal to inspection, nondistended, normoactive bowel sounds present, Soft to palpation, non-tender, No hepatosplenomegaly present and no masses AUSCULTATION: Yes normoactive bowel sounds PALPATION: Yes Soft to palpation and Yes No hepatosplenomegaly present RECTAL EXAM: deferred Extremity: COMMON NORMALS: no clubbing, cyanosis or edema and no pedal edema Neuro: COMMON NORMALS: patient oriented x3 Urinary Catheter Management: [place]: Cath Placed During This Visit: yes, but has since been removed by the nurse Reason for Continuing Indwelling Catheter: Other Urinary Catheter Date of Insertion: 08/18/22 Urinary Catheter Time of Insertion: 09:30 Date Urinary Catheter Removed: 08/20/22 Time Urinary Catheter Discontinued: 10:56 Data : 08/21/22 03:24 08/21/22 03:24 Micro: Microbiology 08/18/22 09:30 Urine Culture - Final Urine,Clean Catch 08/18/22 19:20 Gram Stain - Final Sputum - Expectorated Sputum Sputum Culture - Preliminary Coag positive Staphylococcus Gram Negative Rods A&P Assessment and plan (1) Pneumonia: Patient presents with pneumonia, with evidence of sepsis. White blood cell count is markedly elevated, and she is requiring a significant amount of FiO2. COVID PCR negative, viral panel negative Antibiotics consisting of meropenem, linezolid(she is allergic to vancomycin). This broad-spectrum was chosen secondary to her past wound cultures with ESBL and MRSA. Awaiting sputum and urine culture Overall she is improved. Down to 3 L of oxygen. White blood cell count still markedly elevated. I suspect this will be decreasing by tomorrow. (2) Acute encephalopathy: Patient with history of acute encephalopathy on presentation. She is now back to baseline CT head no acute changes (3) Acute respiratory failure with hypoxia: Resolving. Now down to 3 L of oxygen (4) Acute exacerbation of chronic obstructive pulmonary disease (COPD): Continue prednisone 40 mg daily DuoNeb every 4 hours nebulized Budesonide twice daily (5) Anemia: Patient with microcytic anemia Iron significantly low Received iron transfusion yesterday August 19. We will repeat today. (6) Diabetes: Continue sliding scale insulin Continue long-acting insulin currently as she will be getting IV steroids Consistent carb diet (7) Sepsis: Meets criteria for sepsis with significant elevation white blood cell count, endorgan dysfunction with acute encephalopathy and significant hypoxemia with respiratory distress. Does not qualify for significant amount of fluid boluses. She is not hypotensive. She carries a diagnosis of congestive heart failure, EF preserved. With significant fluid boluses this will likely worsen her respiratory status increasing the chance of need for endotracheal innovation and ventilation. Significantly improved Continue IV antibiotics Await cultures (8) UTI (urinary tract infection): Await urine culture Continue IV antibiotics Plan Elevated troponin. Consistent with demand ischemia. Chronic pain. Continue morphine as needed cautiously. History of seizure disorder. Continue Keppra. Multiple other medical problems as outlined in past medical history Full code currently Lovenox for DVT prophylaxis Attestations Medical Necessity Statement*: Patient is to be in hospital for continued IV antibiotics. 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
[2022-08-21 17:08] LABS: Glucose Point of Care 463 mg/dL (70-110)
[2022-08-21] MEDS: quetiapine 100 mg Tablet 200 MG PO (20:33)
[2022-08-21 21:10] LABS: Glucose Point of Care 294 mg/dL (70-110)
[2022-08-22] VITALS (8 sets, daily range): BP systolic 131–144; BP diastolic 58–79; PULSE 87–98; RESP 16–20; TEMP 36.4–37.1; O2SAT 90–93
[2022-08-22] MEDS: morphine IR 15 mg Tablet PO ×2 (00:26→05:36)
[2022-08-22] MEDS: meropenem 1,000 MG in sodium chloride 0.9% (plus) 50 ML 100 MG IV (01:35)
[2022-08-22] MEDS: ipratropium-albuterol 3 mL Neb INHALATION (03:04)
[2022-08-22] MEDS: atorvastatin 40 mg Tablet 80 MG PO (05:34)
[2022-08-22] MEDS: isosorbide mononitrate ER 60 mg Tablet PO (05:36)
[2022-08-22] MEDS: pantoprazole DR 40 mg Tablet PO (05:36)
[2022-08-22] MEDS: metoprolol succinate ER (24 HR) 25 mg Tablet PO (05:36)
[2022-08-22] MEDS: aspirin 81 mg EC Tablet PO (05:39)
[2022-08-22 06:36] LABS: Glucose Point of Care 206 mg/dL (70-110)
[2022-08-22] MEDS: duloxetine 60 mg Capsule PO (08:06)
[2022-08-22] MEDS: levETIRAcetam 500 mg Tablet PO (08:06)
[2022-08-22] MEDS: predniSONE 20 mg Tablet 40 MG PO (08:06)
[2022-08-22] MEDS: pregabalin 150 mg Capsule PO (08:06)
[2022-08-22] MEDS: insulin lispro 100 unit/1 mL SUBCUT (08:19)
[2022-08-22] MEDS: ticagrelor 90 mg Tablet PO (08:19)
--- NOTE | 2022-08-22 10:01 | PC.NURSE ---
0830 - Morning medications given prior to discharge. Verbalized understanding of discharge instructions. IV removed - catheter intact. Family with patient upon discharge. All belongings with patient.
--- NOTE | 2022-08-22 13:14 | PM.DCS ---
Discharge Providers Date of Admission: 08/18/22 12:22 Date of Discharge: August 22, 2022 Attending Provider at Admission: Salvador Sterling MD Attending Provider at Discharge: Emeterio Prather MD Primary Care Provider: KATHY Stewart Diagnoses at Discharge Discharge Diagnosis (1) Pneumonia: Status: Acute (2) Acute encephalopathy: Status: Acute (3) Acute respiratory failure with hypoxia: Status: Acute (4) Acute exacerbation of chronic obstructive pulmonary disease (COPD): Status: Acute (5) Anemia: Status: Acute (6) Diabetes: Status: Acute (7) Sepsis: Status: Acute (8) UTI (urinary tract infection): Status: Acute Reason for Visit Reason for Visit: AMS Hospital Course Hospital Course 56 year old female with history of seizures, baseline right-sided deficits from prior CVA, COPD, HFpEF, CAD, dyslipidemia, fibromyalgia, NSTEMI, obesity, type 2 diabetes mellitus complicated by peripheral neuropathy, septic arthritis of left knee, hypertension, presented with respiratory distress, during the hospital stay she was managed for sepsis secondary to pneumonia, acute metabolic encephalopathy, blood culture was negative sputum culture grew, sputum cultures grew MRSA, as well as Proteus mirabilis, Patient was kept on broad-spectrum antibiotics, during the hospital stay, she was also kept on other conservative respiratory management, she initially required BiPAP, but at the time of discharge she was saturating well on 2 Ls, she was discharged home on Zyvox as well as cefdinir p.o. for additional 7 days, at the time of discharge she was hemodynamically stable afebrile, saturating well on minimal supplemental oxygen requirement, WBC count was trending down, encephalopathy had completely resolved, she was alert awake oriented x3.she we will continue to follow with a primary care physician as outpatient. Physical Exam Const: COMMON NORMALS: patient oriented x3 Resp: COMMON NORMALS: clear to auscultation bilaterally AUSCULTATION: clear to auscultation bilaterally Cardio: COMMON NORMALS: regular rate, regular rhythm, S1 normal heart sound present, S2 normal heart sound present, No gallops present (Cardio), No murmurs present (Cardio), No rub (Cardio) and Peripheral pulses 2+ throughout RATE: regular rate RHYTHM: regular rhythm HEART SOUNDS: S1 normal heart sound present and S2 normal heart sound present PERIPHERAL PULSES: Peripheral pulses 2+ throughout GI: COMMON NORMALS: Normal to inspection, nondistended, normoactive bowel sounds present, Soft to palpation, non-tender, No hepatosplenomegaly present and no masses AUSCULTATION: Yes normoactive bowel sounds PALPATION: Yes Soft to palpation and Yes No hepatosplenomegaly present RECTAL EXAM: deferred Extremity: COMMON NORMALS: no clubbing, cyanosis or edema and no pedal edema Neuro: COMMON NORMALS: patient oriented x3 Urinary Catheter Management: [place]: Cath Placed During This Visit: yes, but has since been removed by the nurse Reason for Continuing Indwelling Catheter: Other Urinary Catheter Date of Insertion: 08/18/22 Urinary Catheter Time of Insertion: 09:30 Date Urinary Catheter Removed: 08/20/22 Time Urinary Catheter Discontinued: 10:56 Discharge Data Studies Completed and Pending Completed Studies During Hospitalization Category Date Time Status CT head wo con* [id number] Stat Cat Scan 08/18/22 07:00 Completed XR chest 1V portable [id number] Stat Exams 08/18/22 07:00 Completed US renal BI* [id number] Routine Ultrasound 08/18/22 13:06 Completed Pending at discharge Category Date Time Status Blood Culture Stat Lab 08/18/22 07:50 Results Sputum Culture and Gram Stain Routine Lab 08/18/22 19:20 Results Radiology Impressions Chest X-Ray 08/18/22 07:00 IMPRESSION: 1. Coarse chronic pulmonary markings. 2. Nonspecific left lung base opacity favors atelectasis or pneumonia. Head CT 08/18/22 07:00 IMPRESSION: 1. No evidence of intracranial hemorrhage or mass effect. 2. Moderate parenchymal volume loss. 3. No acute intracranial findings. Renal Ultrasound 08/18/22 13:06 IMPRESSION: Normal renal ultrasound. Laboratory Results WBC 22.5 10^3/uL (4.0-10.0) H 08/21/22 03:24 RBC 4.61 10^6/uL (4.1-5.3) 08/21/22 03:24 Hgb 9.8 g/dL (11.5-15.3) L 08/21/22 03:24 Hct 32.5 % (37.0-47.0) L 08/21/22 03:24 MCV 70.5 fl (81-99) L 08/21/22 03:24 MCH 21.3 pg (28.0-34.0) L 08/21/22 03:24 MCHC 30.2 g/dL (30.0-36.0) 08/21/22 03:24 RDW 18.7 % (12.1-15.1) H 08/21/22 03:24 Plt Count 546 10^3/cmm (130-400) H 08/21/22 03:24 MPV 9.4 fL (7.4-10.4) 08/21/22 03:24 Neut % (Auto) 67.5 % 08/21/22 03:24 Lymph % (Auto) 21.7 % 08/21/22 03:24 [place] % (Auto) 7.5 % 08/21/22 03:24 Eos % (Auto) 0.4 % 08/21/22 03:24 Baso % (Auto) 0.2 % 08/21/22 03:24 Neut # (Auto) 15.24 10^3/uL (1.8-7.7) H 08/21/22 03:24 Lymph # (Auto) 4.9 10^3/uL (0.8-4.8) H 08/21/22 03:24 [place] # (Auto) 1.7 10^3/uL (0.2-0.9) H 08/21/22 03:24 Eos # (Auto) 0.1 10^3/uL (0.0-0.8) 08/21/22 03:24 Baso # (Auto) 0.0 10^3/uL (0.0-0.1) 08/21/22 03:24 Nucleated RBC % (auto) 0 % 08/21/22 03:24 Nucleated RBCs # 0.0 /100WBC 08/21/22 03:24 Specimen Type Arterial 08/18/22 07:05 Sample Site Radial, left 08/18/22 07:05 ABG pH 7.37 (7.35-7.45) 08/18/22 07:05 ABG pCO2 40.4 mmHg (35-45) 08/18/22 07:05 ABG pO2 75.5 mmHg (80.0-100.0) L 08/18/22 07:05 ABG HCO3 23.4 mmol/L (22-26) 08/18/22 07:05 ABG O2 Saturation 95.1 08/18/22 07:05 ABG Base Excess -1.8 mmol/L (-2.0-2.0) 08/18/22 07:05 Freddy Test Pos 08/18/22 07:05 A-a O2 Gradient 3.3 mmHg (5-10) L 08/18/22 07:05 Hematocrit 34.2 % (37-47) L 08/18/22 07:05 Hgb O2 Saturation 91.2 % (95-100) L 08/18/22 07:05 Carboxyhemoglobin 3.2 %THgb (0.4-20.1) 08/18/22 07:05 Methemoglobin 0.9 % (0.4-1.5) 08/18/22 07:05 Total Hemoglobin 11.2 g/dL (12-16) L 08/18/22 07:05 Sodium 133.0 mmol/L (131-143) 08/18/22 07:05 Potassium 3.9 mmol/L (3.5-5.0) 08/18/22 07:05 Glucose 245.0 mg/dL (70-115) H 08/18/22 07:05 Ionized Calcium 1.2 mmol/L (1.1-1.4) 08/18/22 07:05 O2 Delivery Device Nrb 08/18/22 07:05 O2 Liters/Min 15.0 % 08/18/22 07:05 Scalehouse Attendant ID Cak 08/18/22 07:05 Sodium 137 mmol/L (136-145) 08/21/22 03:24 Potassium 5.0 mmol/L (3.5-5.1) 08/21/22 03:24 Chloride 100 mmol/L (98-107) 08/21/22 03:24 Carbon Dioxide 23 mmol/L (22-29) 08/21/22 03:24 Anion Gap 19.0 (5-19) 08/21/22 03:24 BUN 18 mg/dL (6-20) 08/21/22 03:24 Creatinine 0.6 mg/dL (0.5-0.9) 08/21/22 03:24 GFR Calculation 103.8 mL/min (90-130) 08/21/22 03:24 Glucose 183 mg/dL (65-115) H 08/21/22 03:24 POC Glucose 206 mg/dL (70-110) H 08/22/22 06:10 Calculated Osmolality 291 mOsm/kg (285-295) 08/21/22 03:24 Lactic Acid 2.1 mmol/L (0.5-2.2) 08/18/22 07:42 Lactic Acid (Sepsis) 1.4 mmol/L (0.5-2.2) 08/18/22 11:30 Calcium 9.5 mg/dL (8.5-10.5) 08/21/22 03:24 Magnesium 2.2 mg/dL (1.7-2.3) 08/19/22 03:57 Iron 13 ug/dL (37-145) L 08/18/22 09:54 TIBC 349 mcg/dl 08/18/22 09:54 % Saturation 3.7 % (20-50) L 08/18/22 09:54 Unsat Iron Binding 336 ug/dL (112-347) 08/18/22 09:54 Ferritin 39 ng/mL (15-150) 08/18/22 09:54 Total Bilirubin 0.3 mg/dL (0.15-1.2) 08/19/22 03:57 AST 18 U/L (0-32) 08/19/22 03:57 ALT 11 U/L (0-33) 08/19/22 03:57 Alkaline Phosphatase 82 U/L (35-105) 08/19/22 03:57 Ammonia 32 umol/L (11-51) 08/18/22 07:42 Troponin T Baseline 58 ng/L (0-10) H 08/18/22 07:42 Troponin T 120 Minute 57.87 ng/L (0-10) H 08/18/22 09:54 Delta Troponin T -0.13 ABS# (0-10) L 08/18/22 09:54 Troponin T Hi Sens 6Hr 38.12 ng/L (0-10) H 08/18/22 13:28 Troponin T Hi Sens 6Hr Delta -19.88 ng/L (0-12) L 08/18/22 13:28 C-Reactive Protein 91.6 mg/L (0.0-4.9) H 08/18/22 07:42 NT-Pro-B Natriuret Pep 313 pg/mL (0-125) H 08/18/22 07:42 Total Protein 6.4 g/dL (6.6-8.7) L 08/19/22 03:57 Albumin 2.9 g/dL (3.5-5.2) L 08/19/22 03:57 Globulin 3.5 g/dL (1.3-4.6) 08/19/22 03:57 Procalcitonin 0.20 ng/mL (0-0.5) 08/18/22 07:42 TSH 0.54 uIU/mL (0.27-4.20) 08/18/22 07:42 Urine Color Yellow (Yellow) 08/18/22 09:30 Urine Appearance Cloudy (CLEAR) A 08/18/22 09:30 Urine pH 5 (5-7) 08/18/22 09:30 Ur Specific [place] 1.010 (1.005-1.030) 08/18/22 09:30 Urine Protein Neg (Negative) 08/18/22 09:30 Urine Glucose (UA) 4+ (Normal) H 08/18/22 09:30 Urine Ketones 1+ (Negative) H 08/18/22 09:30 Urine Blood 2+ (Negative) H 08/18/22 09:30 Urine Nitrate Negative (Negative) 08/18/22 09:30 Urine Bilirubin Neg (Negative) 08/18/22 09:30 Urine Urobilinogen Norm mg/dL (Negative) 08/18/22 09:30 Ur Leukocyte Esterase 1+ (Negative) H 08/18/22 09:30 Urine RBC 0-4 /hpf (0-2) H 08/18/22 09:30 Urine WBC >100 /hpf (0-5) H 08/18/22 09:30 Ur Squamous Epith Cells 5-10 /hpf (0-5) H 08/18/22 09:30 Amorphous Sediment Not Reportable 08/18/22 09:30 Urine Bacteria 3+ /hpf (NONE) H 08/18/22 09:30 Urine Mucus 1+ /hpf 08/18/22 09:30 Urine Yeast 4+ /hpf H 08/18/22 09:30 Nasal Influ A H1 2008 PCR Not detected (NOT DETECT) 08/18/22 08:05 Salicylates < 0.3 mg/dL (3-10) L 08/18/22 07:42 Urine Opiates Screen Positive ng/mL (Negative) H 08/18/22 09:30 Acetaminophen < 5.0 ug/mL (10-30) L 08/18/22 07:42 Ur Barbiturates Screen Negative ng/mL (Negative) 08/18/22 09:30 Ur Phencyclidine Scrn Negative ng/mL (Negative) 08/18/22 09:30 Ur Amphetamines Screen Negative ng/mL (Negative) 08/18/22 09:30 U Benzodiazepines Scrn Negative ng/mL (Negative) 08/18/22 09:30 Urine Cocaine Screen Negative ng/mL (Negative) 08/18/22 09:30 U Marijuana (THC) Screen Negative ng/mL (Negative) 08/18/22 09:30 Ethyl Alcohol < 10 mg/dL (0-10) 08/18/22 07:42 Adenovirus (PCR) Not detected (NOT DETECT) 08/18/22 08:05 C. pneumoniae DNA (PCR) Not detected (NOT DETECT) 08/18/22 08:05 Coronavirus 229E (PCR) Not detected (NOT DETECT) 08/18/22 08:05 Human Metapneumovir PCR Not detected (NOT DETECT) 08/18/22 08:05 Influenza A (H1) PCR Not detected (NOT DETECT) 08/18/22 08:05 Influenza A (H3) PCR Not detected (NOT DETECT) 08/18/22 08:05 Influenza Type A (PCR) Not detected (NOT DETECT) 08/18/22 08:05 Influenza Type B (PCR) Not detected (NOT DETECT) 08/18/22 08:05 M. pneumoniae (PCR) Not detected (NOT DETECT) 08/18/22 08:05 Parainfluenza 1 (PCR) Not detected (NOT DETECT) 08/18/22 08:05 Parainfluenza 2 (PCR) Not detected (NOT DETECT) 08/18/22 08:05 Parainfluenza 3 (PCR) Not detected (NOT DETECT) 08/18/22 08:05 Parainfluenza 4 (PCR) Not detected (NOT DETECT) 08/18/22 08:05 RSV Type A (PCR) Not detected (NOT DETECT) 08/18/22 08:05 RSV Type B (PCR) Not detected (NOT DETECT) 08/18/22 08:05 Entero/Rhino (PCR) Not detected (NOT DETECT) 08/18/22 08:05 SARS-CoV-2 (PCR) Not detected (NOT DETECT) 08/18/22 08:05 Vitals Last Vital Signs Temp 98.4 F 08/22/22 09:56 Pulse 95 08/22/22 09:56 Resp 18 08/22/22 09:56 BP 141/75 08/22/22 09:56 Pulse Ox 92 08/22/22 09:56 O2 Del Method 08/22/22 07:22 O2 Flow Rate 2 08/22/22 07:22 FiO2 40 08/19/22 07:48 Discharge Plan Discharge Patient Disposition: Home Condition: Stable Prescriptions: New cefdinir 300 mg capsule 300 mg PO BID 7 Days Qty: 14 0RF Zyvox 600 mg tablet 600 mg PO BID 7 Days Qty: 14 0RF Diflucan 150 mg tablet 150 mg PO Q3D Qty: 2 0RF Continued Repatha SureClick 140 mg/mL pen injector 140 mg SUBCUT .[id number] Qty: 2 5RF losartan 50 mg tablet 50 mg PO DAILY@0800 Qty: 180 3RF (DME) pen needle, diabetic [Comfort EZ Pen [place]] 32 gauge x 5/32 needle See Rx Instructions .Route Qty: 100 2RF Rx Instructions: use 3times a day to inject insulin. (DME) pen needle, diabetic [Comfort EZ Pen [place]] 31 gauge x 5/16 needle See Rx Instructions .Route Qty: 100 6RF Rx Instructions: use daily with levemir Brilinta 90 mg tablet 90 mg PO BID@08,21 Qty: 180 4RF naloxone 4 mg/actuation spray,non-aerosol 4 mg intranasal Q2M PRN (Reason: opioid overdose) Qty: 2 0RF Rx Instructions: spray 1 dose into ONE nostril; alternate nostrils w each dose until help arrives Levemir FlexTouch U-100 Insuln 100 unit/mL (3 mL) insulin pen 25 unit SUBCUT QAM Qty: 15 3RF Rx Instructions: Increase by 5 units x3 days then increase 5 more units Ed A-Hist DM 4-10-15 mg/5 mL liquid 5 ml PO Q6H PRN (Reason: cold symptoms) Qty: 160 0RF Jardiance 25 mg tablet 25 mg PO DAILY Qty: 30 4RF Rx Instructions: 340 b pregabalin [Lyrica] 150 mg capsule 150 mg PO BID Qty: 60 3RF cyclobenzaprine 10 mg tablet 10 mg PO TID PRN (Reason: muscle spasm) 30 Days Qty: 90 2RF acetaminophen 325 mg Tablet 650 mg PO Q6H PRN (Reason: Mild/Mod Pain Or Temp >/= 101) Qty: 30 0RF morphine 15 mg tablet 15 - 30 mg PO .Q4-6H MDD 5 tabs PRN (Reason: Pain) triamcinolone acetonide 0.1 % cream 1 applic topical BID PRN (Reason: poison nikki) duloxetine 60 mg capsule,delayed release(DR/EC) 60 mg PO DAILY furosemide 40 mg tablet 40 mg PO DAILY PRN (Reason: Edema) levetiracetam 500 mg tablet 500 mg PO BID oxybutynin chloride 5 mg tablet extended release 24hr 5 mg PO DAILY quetiapine 200 mg tablet 200 mg PO BEDTIME Spiriva with HandiHaler 18 mcg capsule, w/inhalation device 1 cap inhalation DAILY Rybelsus 3 mg tablet 3 mg PO QAM Humalog KwikPen Insulin 100 unit/mL insulin pen 3 unit SUBCUT AC Rx Instructions: sliding scale subcutaneously tid albuterol sulfate 2.5 mg /3 mL (0.083 %) Solution For Nebulization 2.5 mg INHALATION Q4H PRN (Reason: Shortness Of Breath) nitroglycerin [Nitrostat] 0.4 mg Tablet, Sublingual 0.4 mg SUBLINGUAL Q5M PRN (Reason: Chest Pain) Rx Instructions: do not exceed 3 doses per episode metoprolol succinate 25 mg tablet extended release 24 hr 25 mg PO QAM atorvastatin 80 mg tablet 80 mg PO QAM aspirin [Adult Aspirin Regimen] 81 mg tablet,delayed release (DR/EC) 81 mg PO QAM isosorbide mononitrate 60 mg tablet extended release 24 hr 60 mg PO QAM pantoprazole 40 mg tablet,delayed release (DR/EC) 40 mg PO QAM albuterol sulfate 90 mcg/actuation HFA aerosol inhaler 1 puff inhalation Q6H PRN (Reason: Shortness Of Breath) Discontinued levofloxacin 750 mg tablet 750 mg PO DAILY 7 Days Qty: 7 0RF Rx Instructions: rx filled 08/09/22 7d/s Discharge Orders: Discharge Order (Routine); Ordered 08/22/22 Ordered By: Emeterio Valdes: Naomy Goodwin FNP [Primary Care Provider] - 1 week (Please call Tuesday to schedule a follow up appointment.) Patient Instructions: Anemia, COPD, Sepsis (GEN), COPD Stoplight Discharge Attestations Time Spent in Discharge Care*: less than 30 min Status at Discharge: Cognitive status at discharge: mildly impaired cognition, Behavioral status at discharge: cooperative, Quality Metrics Clinical Quality Measures [ No reported AMI, CVA or VTE this stay] Coding Level of Care Code Acute Chg FW DC note Exam Detailed Diagnoses Pneumonia J18.9 Acute encephalopathy G93.40 Acute respiratory failure with hypoxia J96.01 Acute exacerbation of chronic obstructive pulmonary disease (COPD) J44.1 Anemia D64.9 Diabetes E11.9 Sepsis A41.9 UTI (urinary tract infection) N39.0
== END 2022-08-22 08:30 | disposition home or self-care (01) | DRG 871 ==
LOC: ER 10:14 → ICU 12:28 → MEDSURG 08-19 17:38
PROVIDERS: Admitting Provider Internal Medicine; Emergency Provider Emergency Medicine; PCP Nurse Practitioner Family; Visit Provider Internal Medicine
DX: A41.9 Sepsis, unspecified organism (principal); G93.41 Metabolic encephalopathy; J18.9 Pneumonia, unspecified organism; J96.01 Acute respiratory failure with hypoxia; J44.1 Chronic obstructive pulmonary disease with (acute) exacerbation; J44.0 Chronic obstructive pulmonary disease with (acute) lower respiratory infection; N39.0 Urinary tract infection, site not specified; Z99.81 Dependence on supplemental oxygen; Z86.14 Personal history of Methicillin resistant Staphylococcus aureus infection; Z88.5 Allergy status to narcotic agent; Z88.0 Allergy status to penicillin; Z88.2 Allergy status to sulfonamides; Z88.1 Allergy status to other antibiotic agents; Z91.040 Latex allergy status; I25.10 Atherosclerotic heart disease of native coronary artery without angina pectoris; E11.42 Type 2 diabetes mellitus with diabetic polyneuropathy; Z86.73 Personal history of transient ischemic attack (TIA), and cerebral infarction without residual deficits; E78.5 Hyperlipidemia, unspecified; I10 Essential (primary) hypertension; Z79.82 Long term (current) use of aspirin; Z79.4 Long term (current) use of insulin; Z79.51 Long term (current) use of inhaled steroids; Z79.84 Long term (current) use of oral hypoglycemic drugs; Z79.02 Long term (current) use of antithrombotics/antiplatelets; B96.4 Proteus (mirabilis) (morganii) as the cause of diseases classified elsewhere; B95.62 Methicillin resistant Staphylococcus aureus infection as the cause of diseases classified elsewhere; I25.2 Old myocardial infarction; M79.7 Fibromyalgia; D64.9 Anemia, unspecified; F17.210 Nicotine dependence, cigarettes, uncomplicated; Z96.652 Presence of left artificial knee joint; Z98.1 Arthrodesis status; Z87.440 Personal history of urinary (tract) infections; E66.9 Obesity, unspecified; Z68.35 Body mass index [BMI] 35.0-35.9, adult
CPT/HCPCS: 36415; 36416; 36600; 51702; 70450; 71045; 76770; 80048; 80051; 80053; 80306; 80307; 81001; 82140; 82330; 82728; 82805; 82962; 83540; 83550; 83605; 83735; 83880; 84145; 84443; 84484; 85025; 86140; 87040; 87070; 87077; 87086; 87186; 87205; 87486; 87581; 87633; 93005; 94640; 96365; 96367; 96372; 96375; 97110; 97116; 97162; 97530; 99285; J1650; J1756; J1815; J1956; J2020; J2185; J2405; J2930; J7030; J7050; J7120; J7512; J7626

== ENCOUNTER 2022-09-13 01:00 | Outpatient (CLI) | payer MEDICARE, MEDICAID, SELFPAY | END 2022-09-13 23:00 | disposition home or self-care (01) | LOC: CDL 11-16 18:20 | PROVIDERS: PCP Family Medicine; Visit Provider Nurse Practitioner Family | DX: I25.10 Atherosclerotic heart disease of native coronary artery without angina pectoris (principal); F17.210 Nicotine dependence, cigarettes, uncomplicated | CPT/HCPCS: 99214 ==

== ENCOUNTER → 2022-09-16 13:37 | Outpatient (BNVA) | payer MEDICARE, MEDICAID, SELFPAY | PROVIDERS: PCP Nurse Practitioner Family; Referring Provider Family Medicine; Visit Provider Student in an Organized Health Care Education/Training Program | DX: M21.931 Unspecified acquired deformity of right forearm (principal); Z86.73 Personal history of transient ischemic attack (TIA), and cerebral infarction without residual deficits | CPT/HCPCS: 73130; 99204 ==

== ENCOUNTER → 2022-10-06 12:20 | Outpatient (BNVA) | payer MEDICARE, MEDICAID, SELFPAY | PROVIDERS: PCP Family Medicine; Referring Provider Family Medicine; Visit Provider Specialist | DX: G40.419 Other generalized epilepsy and epileptic syndromes, intractable, without status epilepticus (principal); G43.711 Chronic migraine without aura, intractable, with status migrainosus; I69.351 Hemiplegia and hemiparesis following cerebral infarction affecting right dominant side; F32.A Depression, unspecified | CPT/HCPCS: 99205 ==

== ENCOUNTER 2022-10-17 06:00 | Outpatient (RCR) | payer MEDICARE, MEDICAID, SELFPAY | END 2022-11-16 23:59 | disposition home or self-care (01) | LOC: APT 06:00 | PROVIDERS: PCP Family Medicine; Visit Provider Specialist | DX: R53.1 Weakness (principal) | CPT/HCPCS: 97110; 97161 ==

== ENCOUNTER → 2022-10-19 10:30 | Outpatient (BNVA) | payer MEDICARE, MEDICAID, SELFPAY | PROVIDERS: PCP Family Medicine; Visit Provider Internal Medicine Cardiovascular Disease | DX: I25.10 Atherosclerotic heart disease of native coronary artery without angina pectoris (principal); I11.0 Hypertensive heart disease with heart failure; I50.30 Unspecified diastolic (congestive) heart failure; F17.210 Nicotine dependence, cigarettes, uncomplicated | CPT/HCPCS: 99214; Q3014 ==

== ENCOUNTER → 2022-12-01 09:53 | Outpatient (BNVA) | payer MEDICARE, MEDICAID, SELFPAY | PROVIDERS: PCP Family Medicine; Visit Provider Orthopaedic Surgery | DX: T84.54XA Infection and inflammatory reaction due to internal left knee prosthesis, initial encounter (principal); Y79.2 Prosthetic and other implants, materials and accessory orthopedic devices associated with adverse incidents; Z96.653 Presence of artificial knee joint, bilateral | CPT/HCPCS: 73560; 73565; 99213 ==

== ENCOUNTER → 2022-12-20 14:58 | Outpatient (BNVA) | payer MEDICARE, MEDICAID, SELFPAY | PROVIDERS: PCP Family Medicine; Visit Provider Family Medicine | DX: E11.43 Type 2 diabetes mellitus with diabetic autonomic (poly)neuropathy (principal); E78.2 Mixed hyperlipidemia; G40.309 Generalized idiopathic epilepsy and epileptic syndromes, not intractable, without status epilepticus; I10 Essential (primary) hypertension; M47.817 Spondylosis without myelopathy or radiculopathy, lumbosacral region; J18.9 Pneumonia, unspecified organism; F32.A Depression, unspecified; I65.22 Occlusion and stenosis of left carotid artery; I25.10 Atherosclerotic heart disease of native coronary artery without angina pectoris; E11.65 Type 2 diabetes mellitus with hyperglycemia; M06.9 Rheumatoid arthritis, unspecified | CPT/HCPCS: 80053; 80061; 83036; 84443; 85025 ==

== ENCOUNTER 2023-01-05 16:07 | Inpatient (IN) | payer MEDICARE, MEDICAID, SELFPAY ==
[2023-01-05 16:21] VITALS: BP 97/67; PULSE 69; RESP 16; TEMP 36.9; O2SAT 96
--- NOTE | 2023-01-05 16:42 | ED_ITS ---
HPI - Altered Mental Status General: Chief Complaint: Altered Mental Status Stated Complaint: Back pain, altered mental status Time Seen by Provider: 01/05/23 16:32 Source: other (Caregiver) Limitations: no limitations History of Present Illness: This 57-year-old female with a history of depression, coronary artery disease, hypertension and epilepsy was brought in by her caregiver with altered mental status. Caregiver notes that patient has been talking out of her head for the last 2 days, making comments that do not make se nse and also talking about people that are not present at the time. No fever was reported and patient has no nausea or vomiting. She denies chest pain, shortness of breath or any other pertinent symptoms. On direct questioning, patient knows that she is in [facility] but thinks that this is February and the year is 1992. When asked who the president was, she cannot remember. She is slow to answer questions and appears somewhat sleepy. She is able to move all extremities with no demonstrable focal deficit. Review of Systems Const: Denies: chills, body aches or change in appetite ENMT: Denies: throat pain, dental pain or nasal discharge Card: Denies: chest pain or lightheadedness : Denies: dysuria Musc: Denies: neck pain or back pain Neuro: Denies: headache(s) or weakness in extremities PFS ED PFSH: Medical History (HFpEF) heart failure with preserved ejection fraction Abnormal stress test Acute alteration in mental status Acute and chronic respiratory failure with hypoxia Acute encephalopathy Acute exacerbation of CHF (congestive heart failure) Acute exacerbation of chronic obstructive pulmonary disease (COPD) Acute hypoxemic respiratory failure Acute respiratory failure with hypoxia Anemia CAD (coronary artery disease) Candidiasis of vagina Carpal tunnel syndrome, right Cellulitis of gluteal region Chest pain Chronic knee pain Chronic left-sided low back pain Chronic obstructive pulmonary disease, unspecified Chronic pain of left knee Chronic, continuous use of opioids Compression fracture of L2 lumbar vertebra COPD (chronic obstructive pulmonary disease) COPD exacerbation Coronary artery disease due to type 2 diabetes mellitus Current every day smoker CVA (cerebral vascular accident) Diabetes Diabetes type 2, uncontrolled Diabetic foot ulcer Dyslipidemia Dyspnea Elevated troponin Encounter for long-term opiate analgesic use Essential hypertension Exposure to COVID-19 virus Fibromyalgia, primary History of CVA (cerebrovascular accident) History of hypoglycemic coma History of stroke Hoarseness of voice Hyperlipidemia, mixed Hypoxemia Infection of total left knee replacement Insomnia Intervertebral disc disorder of lumbar region with myelopathy Leukocytosis Low back pain radiating to both legs Lumbosacral spondylosis without myelopathy Needs flu shot Neuropathy NSTEMI (non-ST elevated myocardial infarction) Thought to be secondary to plaque rupture. Angiogram July 04 no flow- limiting lesions, or restenosis of previous stent from April 2020 Numbness and tingling in both hands Obesity (BMI 35.0-39.9 without comorbidity) Opioid contract exists Osteoarthritis of left knee Osteoarthritis of spine at multiple levels Pericardial effusion Peripheral sensory neuropathy due to type 2 diabetes mellitus Pneumonia Pneumonia Pressure ulcer Prosthetic joint infection Right arm weakness Right hip pain Right wrist deformity Sacral pressure ulcer Seizure Seizure disorder Seizures Sepsis Sepsis Septic arthritis of knee, left Stenosis of left internal carotid artery with cerebral infarction Syncope Type 2 diabetes mellitus with diabetic autonomic (poly)neuropathy Unstable angina Urinary incontinence Urinary tract infection UTI (urinary tract infection) Vitamin D deficiency Surgical History History of arthroscopic surgery of elbow BILATERAL History of coronary angiogram Angiogram April 2020 with 90% circumflex lesion, drug-eluting stent placed by Dr. Jerome S/p bilateral carpal tunnel release S/P hysterectomy S/P knee surgery RIGHT S/P lumbar fusion DR. Shreya ZAYAS IN [place], [place] L4-L5, L5-S1 Status post left knee replacement Status post lumbar laminectomy Family History Other CAD (coronary artery disease) Cancer Diabetes Social History Smoking and tobacco status: current every day smoker cigarettes Packs smoked per day: 0.5 Years cigarettes smoked: 10 [ Other cigarette details: PER PATIENT REPORT] Smoking risk assessment/counseling performed?: Yes Alcohol intake: former Desire information about alcohol rehabilitation?: No Counseling given: No Desire information about substance/drug rehabilitation?: No Counseling given: No Caregiver/support person: No Lives independently: Yes Household members: family and other Details: son Housing: Manufactured/Mobile home Marital status: Unknown Marital status details: She and son state she is not service: No Current occupational status: unemployed Pets and animals: Yes Current gender identity: Female Course Vital Signs: Vital signs: Vital Signs Temperature 98.1 F 01/05/23 21:40 Pulse Rate 92 01/05/23 21:40 Respiratory Rate 19 H 01/05/23 21:40 Blood Pressure 105/66 01/05/23 21:40 Pulse Oximetry 94 01/05/23 21:40 Oxygen Delivery Me thod 01/05/23 21:40 Oxygen Flow Rate 2 01/05/23 21:40 MDM - Altered Mental Status Medical Decision Making Medical decision making: History as above. Work-up reveals elevated white count with left shift. Chest x-ray is indicative of pneumonia. She will be admitted for IV fluids, IV antibiotics and further management. Lab Data 01/05/23 17:04 01/05/23 17:04 Radiology Impressions Chest X-Ray 01/05/23 17:08 IMPRESSION: Peripheral left midlung opacity is new since previous and suspicious for possible pneumonia. Correlate clinically. Head CT 01/05/23 17:08 IMPRESSION: No acute intracranial abnormality. Laboratory Results WBC 22.1 10^3/uL (4.0-10.0) H 01/05/23 17:04 RBC 4.79 10^6/uL (4.1-5.3) 01/05/23 17:04 Hgb 11.8 g/dL (11.5-15.3) 01/05/23 17:04 Hct 37.1 % (37.0-47.0) 01/05/23 17:04 MCV 77.5 fl (81-99) L 01/05/23 17:04 MCH 24.6 pg (28.0-34.0) L 01/05/23 17:04 MCHC 31.8 g/dL (30.0-36.0) 01/05/23 17:04 RDW 15.8 % (12.1-15.1) H 01/05/23 17:04 Plt Count 589 10^3/cmm (130-400) H 01/05/23 17:04 MPV 9.0 fL (7.4-10.4) 01/05/23 17:04 Neut % (Auto) 74.5 % 01/05/23 17:04 Lymph % (Auto) 12.7 % 01/05/23 17:04 [place] % (Auto) 6.8 % 01/05/23 17:04 Eos % (Auto) 4.9 % 01/05/23 17:04 Baso % (Auto) 0.4 % 01/05/23 17:04 Neut # (Auto) 16.46 10^3/uL (1.8-7.7) H 01/05/23 17:04 Lymph # (Auto) 2.8 10^3/uL (0.8-4.8) 01/05/23 17:04 [place] # (Auto) 1.5 10^3/uL (0.2-0.9) H 01/05/23 17:04 Eos # (Auto) 1.1 10^3/uL (0.0-0.8) H 01/05/23 17:04 Baso # (Auto) 0.1 10^3/uL (0.0-0.1) 01/05/23 17:04 Nucleated RBC % (auto) 0 % 01/05/23 17:04 Nucleated RBCs # 0.0 /100WBC 01/05/23 17:04 ESR 34 mm/hr (0-15) H 01/05/23 17:04 PT 13.40 SECONDS (12.1-14.9) 01/05/23 17:04 INR 0.99 (0.8-1.2) 01/05/23 17:04 Sodium 137 mmol/L (136-145) 01/05/23 17:04 Potassium 3.7 mmol/L (3.5-5.1) 01/05/23 17:04 Chloride 98 mmol/L (98-107) 01/05/23 17:04 Carbon Dioxide 26 mmol/L (22-29) 01/05/23 17:04 Anion Gap 16.7 (5-19) 01/05/23 17:04 BUN 8 mg/dL (6-20) 01/05/23 17:04 Creatinine 0.7 mg/dL (0.5-0.9) 01/05/23 17:04 GFR Calculation 86.9 mL/min (90-130) L 01/05/23 17:04 Glucose 208 mg/dL (65-115) H 01/05/23 17:04 Calculated Osmolality 288 mOsm/kg (285-295) 01/05/23 17:04 Lactate 1.8 mmol/L (0.5-2.2) 01/05/23 20:30 Calcium 8.4 mg/dL (8.5-10.5) L 01/05/23 17:04 Total Bilirubin 0.3 mg/dL (0.15-1.2) 01/05/23 17:04 AST 22 U/L (0-32) 01/05/23 17:04 ALT 13 U/L (0-33) 01/05/23 17:04 Alkaline Phosphatase 95 U/L (35-105) 01/05/23 17:04 NT-Pro-B Natriuret Pep 236 pg/mL (0-125) H 01/05/23 17:04 Total Protein 7.0 g/dL (6.6-8.7) 01/05/23 17:04 Albumin 3.6 g/dL (3.5-5.2) 01/05/23 17:04 Globulin 3.4 g/dL (1.3-4.6) 01/05/23 17:04 Discharge Plan Discharge Patient Disposition: Admitted As Inpatient Admit Provider: Avila Marie Clinical Impression: Community acquired pneumonia, Altered mental status Condition: Stable Coding Level of Care Code ED Superintendent General for Nahed Alcazar
--- NOTE | 2023-01-05 17:08 | CTR_ITS ---
PROCEDURE INFORMATION: Exam: CT Head Without Contrast Exam date and time: 01/05/2023 5:45 PM Age: 57 years old Clinical indication: Altered mental status/memory loss; Confusion or disorientation TECHNIQUE: Imaging protocol: Computed tomography of the head without contrast. Radiation optimization: All CT scans at this facility use at least one of these dose optimization techniques: automated exposure control; mA and/or kV adjustment per patient size (includes targeted exams where dose is matched to clinical indication); or iterative reconstruction. REPORTING DATA: Count of CT and Cardiac NM exams in prior 12 months: This patient has received 2 known CTs and 0 known cardiac nuclear medicine studies in the 12 months prior to the current study. COMPARISON: CT head wo con* [id number] 08/18/2022 9:02 AM RADIATION DOSE METRICS: Total DLP (mGy-cm): 1070.68 FINDINGS: Brain: No acute infarct. No hemorrhage. Stable involutional changes of the brain. No mass effect. Cerebral ventricles: Stable ventricular size. No ventriculomegaly. Paranasal sinuses: Scattered paranasal sinus mucosal thickening, without air-fluid level present. Mastoid air cells: Visualized mastoid air cells are well aerated. Orbital cavities: Old fracture in the medial right orbital wall with fat extending into the defect is unchanged. Bones/joints: Unremarkable. No acute fracture. Soft tissues: Unremarkable. CT/CT head wo con* [id number] IMPRESSION: No acute intracranial abnormality.
--- NOTE | 2023-01-05 17:08 | XRR_ITS ---
PROCEDURE INFORMATION: Exam: XR Chest Exam date and time: 01/05/2023 5:16 PM Age: 57 years old Clinical indication: Other: AMS; Additional info: Altered mental status TECHNIQUE: Imaging protocol: Radiologic exam of the chest. Views: 1 view. COMPARISON: CR XR chest 1V portable [id number] 08/18/2022 7:09 AM FINDINGS: Lungs: Patchy peripheral left midlung infiltrate. Lungs are hypoinflated. Minimal linear scarring peripheral right midlung is unchanged. Nodular density left lung base measuring 8 mm is unchanged. Stable central interstitial prominence. Pleural spaces: Unremarkable. No pleural effusion. No pneumothorax. Heart/Mediastinum: Unremarkable. No cardiomegaly. Bones/joints: Unremarkable. XR/XR chest 1V portable [id number] IMPRESSION: Peripheral left midlung opacity is new since previous and suspicious for possible pneumonia. Correlate clinically.
[2023-01-05] MEDS: sodium chloride 0.9% 1,000 ML 999 ML IV (17:24)
[2023-01-05 17:31] LABS: Basophils # 0.1 10^3/uL (0.0-0.1); Basophils % 0.4 %; Eosinophils # 1.1 10^3/uL (0.0-0.8); Eosinophils % 4.9 %; Hematocrit 37.1 % (37.0-47.0); Hemoglobin 11.8 g/dL (11.5-15.3); Lymphocytes # 2.8 10^3/uL (0.8-4.8); Lymphocytes % 12.7 %; Mean Corpuscular HGB Conc 31.8 g/dL (30.0-36.0); Mean Corpuscular Hemoglobin 24.6 pg (28.0-34.0); Mean Corpuscular Volume 77.5 fl (81-99); Monocytes # 1.5 10^3/uL (0.2-0.9); Monocytes % 6.8 %; Neutrophils # 16.46 10^3/uL (1.8-7.7); Neutrophils % 74.5 %; Nucleated Red Blood Cells % 0 %; Platelet Count 589 10^3/cmm (130-400); Red Blood Count 4.79 10^6/uL (4.1-5.3); Red Cell Distribution Width 15.8 % (12.1-15.1); White Blood Count 22.1 10^3/uL (4.0-10.0)
[2023-01-05 17:48] LABS: INR 0.99 (0.8-1.2)
[2023-01-05 18:04] LABS: Alanine Aminotransferase 13 U/L (0-33); Albumin Level 3.6 g/dL (3.5-5.2); Alkaline Phosphatase 95 U/L (35-105); Anion Gap 16.7 (5-19); Aspartate Amino Transferase 22 U/L (0-32); Blood Urea Nitrogen 8 mg/dL (6-20); Calcium 8.4 mg/dL (8.5-10.5); Carbon Dioxide 26 mmol/L (22-29); Chloride 98 mmol/L (98-107); Globulin 3.4 g/dL (1.3-4.6); Glomerular Filtration Rate 86.9 mL/min (90-130); Glucose 208 mg/dL (65-115); NT Pro B Type Natriuretic Pept 236 pg/mL (0-125); Osmolality Calculated 288 mOsm/kg (285-295); Potassium 3.7 mmol/L (3.5-5.1); Sodium 137 mmol/L (136-145); Total Bilirubin 0.3 mg/dL (0.15-1.2)
[2023-01-05 18:47] VITALS: BP 94/55; PULSE 92; O2SAT 90
--- NOTE | 2023-01-05 20:40 | P.HP_ITS ---
Providers/Chief Complaint Primary Care Provider: Laurel Eagle MD Chief Complaint: Back pain, altered mental status History of Present Illness Was brought in for evaluation by her family, lives at home with her son, due to several days of confusion, with examples given of her seeing people who are not there. She has been coughing, wheezing. On my evaluation she herself provides some partial review of systems, seems somewhat confused, history not reliable. She tells me she is here because of some weakness in the right hand and wrist with her not being able to close her hand which she tells me has been going on for about a year. She does tell me that she had had a carpal tunnel surgery before. She does confirm that she has been coughing, has been dyspneic. Her family is no longer here. History obtained from ER physician and chart, including prior admission documentation. In ER she is found to have leukocytosis 22.1. Predominantly neutrophilic, but some eosinophilia as well. She is afebrile. Heart rate in the 90s. Glucose 208. History of diabetes. Anion gap 16.7, bicarb 26. BUN 8, creatinine 0.7. Unremarkable liver parameters. NT proBNP only 236. Unremarkable remaining chemistry. Chest x-ray with peripheral left midlung opacity new since previous suspicious for possible pneumonia. Head CT without acute intracranial abnormality. Review of Systems 2 Const: Reports: other (Confusion) ENMT: Denies: throat pain or ear or mastoid pain Card: Denies: chest pain, edema, pre-syncope or dyspnea on exertion Resp: Denies: dyspnea, productive cough, change in phlegm color or hemoptysis GI: Denies: abdominal pain, nausea, vomiting, diarrhea, constipation, hematochezia or melena : Denies: flank pain, urinary frequency or hematuria Musc: Reports: back pain; Denies: joint swelling or joint redness Skin/Breast: Denies: rash or new lesions Neuro: Reports: weakness in extremities (Chronic RUE/R wrist/hand), confusion and behavioral changes; Denies: headache(s), numbness in extremities or seizure-like activity Endo: Denies: polyuria or polydipsia Medications/Allergies Home Medications Medication Instructions Recorded Confirmed Last Taken Type acetaminophen 325 mg tablet 650 mg PO Q6H PRN Mild/Mod Pain Or 10/16/20 01/05/23 04/21/21 Rx Temp >/= 101 #30 tabs pen needle, diabetic 31 gauge x #100 ea 03/05/22 01/05/23 Unknown Rx 5/16 (Comfort EZ Pen [place]) pen needle, diabetic 32 gauge x #100 ea 03/05/22 01/05/23 Unknown Rx 32 (Comfort EZ Pen [place]) naloxone 4 mg/actuation nasal spray 4 mg intranasal Q2M PRN opioid 03/11/22 01/05/23 Unknown Rx overdose #2 ea albuterol sulfate 2.5 mg/3 mL 2.5 mg inhalation Q4H PRN 05/17/22 01/05/23 Unknown History (0.083 %) solution for nebulization Shortness Of Breath aspirin 81 mg tablet,delayed 81 mg PO QAM 05/17/22 01/05/23 01/05/23 History release (Adult Aspirin Regimen) nitroglycerin 0.4 mg sublingual 0.4 mg sublingual Q5M PRN Chest 05/17/22 01/05/23 Unknown History tablet (Nitrostat) Pain morphine 15 mg immediate release 15 - 30 mg PO .Q4-6H PRN Pain 08/18/22 01/05/23 Unknown History tablet triamcinolone acetonide 0.1 % 1 applic topical BID PRN poison nikki 08/18/22 01/05/23 Unknown History topical cream chlorpheniramine 4 5 ml PO Q6H PRN cold symptoms #160 12/13/22 01/05/23 Unknown Rx mg-phenylephrine 10 mg-DM 15 mg/5 mL mL oral liquid (Ed A-Hist DM) albuterol sulfate 90 mcg/actuation 1 puff inhalation Q6H PRN 12/20/22 01/05/23 Unknown Rx aerosol inhaler Shortness Of Breath #8.5 grams atorvastatin 80 mg tablet 80 mg PO QAM #30 tabs 12/20/22 01/05/23 01/04/23 Rx cyclobenzaprine 10 mg tablet 10 mg PO TID PRN muscle spasm 30 12/20/22 01/05/23 Unknown Rx days #90 tabs duloxetine 60 mg capsule,delayed 60 mg PO DAILY #30 caps 12/20/22 01/05/23 01/05/23 Rx release empagliflozin 25 mg tablet 25 mg PO DAILY #30 tabs 12/20/22 01/05/23 01/05/23 Rx (Jardiance) evolocumab 140 mg/mL subcutaneous 140 mg SUBCUT .b14etpm #2 mL 12/20/22 01/05/23 Unknown Rx pen injector (Repatha Harpalick) insulin lispro 100 unit/mL 3 unit (0.03 mL) SUBCUT AC #15 mL 12/20/22 01/05/23 Unknown Rx subcutaneous pen (Humalog KwikPen (U-100) Insulin) isosorbide mononitrate 60 mg 60 mg PO BID #120 tabs 12/20/22 01/05/23 01/05/23 Rx tablet,extended release 24 hr levetiracetam 500 mg tablet 500 mg PO BID #60 tabs 12/20/22 01/05/23 01/05/23 Rx losartan 50 mg tablet 50 mg PO DAILY@0800 #90 tabs 12/20/22 01/05/23 01/05/23 Rx metoprolol succinate 25 mg 25 mg PO QAM #30 tabs 12/20/22 01/05/23 01/05/23 Rx tablet,extended release 24 hr oxybutynin chloride 5 mg 5 mg PO DAILY #30 tabs 12/20/22 01/05/23 01/05/23 Rx tablet,extended release 24 hr pantoprazole 40 mg tablet,delayed 40 mg PO QAM #30 tabs 12/20/22 01/05/23 01/05/23 Rx release pregabalin 150 mg capsule (Lyrica) 150 mg PO BID #60 caps 12/20/22 01/05/23 01/05/23 Rx quetiapine 200 mg tablet 200 mg PO BEDTIME #30 tabs 12/20/22 01/05/23 01/04/23 Rx semaglutide 3 mg tablet (Rybelsus) See Rx Instructions .Route 12/20/22 01/05/23 01/05/23 Rx .COMPLEX #30 tabs ticagrelor 90 mg tablet (Brilinta) 90 mg PO BID@08,21 #180 tabs 12/20/22 01/05/23 01/05/23 Rx tiotropium bromide 18 mcg capsule 1 cap inhalation DAILY #30 12/20/22 01/05/23 01/05/23 Rx with inhalation device (Spiriva inhalations with HandiHaler) insulin detemir U-100 100 unit/mL 35 unit (0.35 mL) SUBCUT QAM #15 mL 12/23/22 01/05/23 01/05/23 Rx (3 mL) subcutaneous pen (Levemir FlexTouch U-100 Insulin) blood sugar diagnostic (Blood #100 ea 12/27/22 01/05/23 Unknown Rx Glucose Test strips) blood-glucose meter #1 ea 12/27/22 01/05/23 Unknown Rx lancets #100 ea 12/27/22 01/05/23 Unknown Rx furosemide 40 mg tablet 40 mg PO BID 01/05/23 01/05/23 01/05/23 History zonisamide 100 mg capsule 400 mg PO BEDTIME 01/05/23 01/05/23 01/04/23 History (Zonegran) Allergies Allergy/AdvReac Type Severity Reaction Status Date / Time fentanyl Allergy Unknown ALGY-Difficulty Verified 01/05/23 16:26 Breathing adhesive Allergy Unknown Verified 01/05/23 16:26 clindamycin Allergy ADR-Itching Verified 01/05/23 16:26 codeine Allergy Unknown Verified 01/05/23 16:26 hydrocodone Allergy Unknown Verified 01/05/23 16:26 latex Allergy ALGY-Swell Verified 01/05/23 16:26 Lip/Tongue/Throat naproxen [From Naprosyn] Allergy Unknown Verified 01/05/23 16:26 nut - unspecified Allergy ALGY-Anaphy Verified 01/05/23 16:26 laxis oxycodone [From Roxicodone] Allergy ADR-Muscle Verified 01/05/23 16:26 Pain Penicillins Allergy Unknown Verified 01/05/23 16:26 sulfamethoxazole Allergy ADR-Migrain Verified 12/20/22 14:29 [From Bactrim] e trimethoprim [From Bactrim] Allergy ADR-Migrain Verified 12/20/22 14:29 e vancomycin Allergy ALGY-Rash Verified 12/20/22 14:29 PFSH Acute PFSH: Medical History (HFpEF) heart failure with preserved ejection fraction Abnormal stress test Acute alteration in mental status Acute and chronic respiratory failure with hypoxia Acute encephalopathy Acute exacerbation of CHF (congestive heart failure) Acute exacerbation of chronic obstructive pulmonary disease (COPD) Acute hypoxemic respiratory failure Acute respiratory failure with hypoxia Anemia CAD (coronary artery disease) Candidiasis of vagina Carpal tunnel syndrome, right Cellulitis of gluteal region Chest pain Chronic knee pain Chronic left-sided low back pain Chronic obstructive pulmonary disease, unspecified Chronic pain of left knee Chronic, continuous use of opioids Compression fracture of L2 lumbar vertebra COPD (chronic obstructive pulmonary disease) COPD exacerbation Coronary artery disease due to type 2 diabetes mellitus Current every day smoker CVA (cerebral vascular accident) Diabetes Diabetes type 2, uncontrolled Diabetic foot ulcer Dyslipidemia Dyspnea Elevated troponin Encounter for long-term opiate analgesic use Essential hypertension Exposure to COVID-19 virus Fibromyalgia, primary History of CVA (cerebrovascular accident) History of hypoglycemic coma History of stroke Hoarseness of voice Hyperlipidemia, mixed Hypoxemia Infection of total left knee replacement Insomnia Intervertebral disc disorder of lumbar region with myelopathy Leukocytosis Low back pain radiating to both legs Lumbosacral spondylosis without myelopathy Needs flu shot Neuropathy NSTEMI (non-ST elevated myocardial infarction) Thought to be secondary to plaque rupture. Angiogram July 04 no flow- limiting lesions, or restenosis of previous stent from April 2020 Numbness and tingling in both hands Obesity (BMI 35.0-39.9 without comorbidity) Opioid contract exists Osteoarthritis of left knee Osteoarthritis of spine at multiple levels Pericardial effusion Peripheral sensory neuropathy due to type 2 diabetes mellitus Pneumonia Pneumonia Pressure ulcer Prosthetic joint infection Right arm weakness Right hip pain Right wrist deformity Sacral pressure ulcer Seizure Seizure disorder Seizures Sepsis Sepsis Septic arthritis of knee, left Stenosis of left internal carotid artery with cerebral infarction Syncope Type 2 diabetes mellitus with diabetic autonomic (poly)neuropathy Unstable angina Urinary incontinence Urinary tract infection UTI (urinary tract infection) Vitamin D deficiency Surgical History History of arthroscopic surgery of elbow BILATERAL History of coronary angiogram Angiogram April 2020 with 90% circumflex lesion, drug-eluting stent placed by Dr. Jerome S/p bilateral carpal tunnel release S/P hysterectomy S/P knee surgery RIGHT S/P lumbar fusion DR. Shreya ZAYAS [place], [place] L4-L5, L5-S1 Status post left knee replacement Status post lumbar laminectomy Family History Other CAD (coronary artery disease) Cancer Diabetes Social History Smoking and tobacco status: current every day smoker cigarettes Packs smoked per day: 0.5 Years cigarettes smoked: 10 [ Other cigarette details: PER PATIENT REPORT] Smoking risk assessment/counseling performed?: Yes Alcohol intake: former Desire information about alcohol rehabilitation?: No Counseling given: No Desire information about substance/drug rehabilitation?: No Counseling given: No Caregiver/support person: No Lives independently: Yes Household members: family and other Details: son Housing: Manufactured/Mobile home Marital status: Unknown Marital status details: She and son state she is not service: No Current occupational status: unemployed Pets and animals: Yes Current gender identity: Female Vitals/I&O/Wt Last Vital Signs Temp 98.5 F 01/05/23 16:21 Pulse 92 01/05/23 18:47 Resp 16 01/05/23 16:21 BP 94/55 01/05/23 18:47 Pulse Ox 90 01/05/23 18:47 O2 Del Method 01/05/23 18:47 Weight last 48 hrs Weight 87.997 kg Physical Exam Const: COMMON NORMALS: alert; negative for patient oriented x3 (Think she is in [place], cannot tell year, knows he is in the hospital.) GENERAL APPEARANCE: cooperative NUTRITIONAL APPEARANCE: obese ORIENTATION/CONSCIOUSNESS: Yes awake and Yes confused HENMT: COMMON NORMALS: oropharynx normal Neck/C-Spine: COMMON NORMALS: no JVD Resp: COMMON NORMALS: normal respiratory effort AUSCULTATION: rhonchi, wheezes and diminished lung sounds Cardio: COMMON NORMALS: no JVD, regular rhythm, S1 normal heart sound present, S2 normal heart sound present and No murmurs present (Cardio) RHYTHM: regular rhythm HEART SOUNDS: S1 normal heart sound present and S2 normal heart sound present GI: COMMON NORMALS: Normal to inspection, nondistended, normoactive bowel sounds present, Soft to palpation and non-tender PALPATION: Yes Soft to palpation Extremity: COMMON NORMALS: no joint enlargement GENERAL: Yes edema (Trace nonpitting) OTHER: Extended bowel meant right wrist, which she is holding in that position. I am able to close it, and she does not complain of pain. No erythema or swelling. She seems to be able to approximated minimally, but states otherwise cannot flex wrist or close her hand. Healed scar from prior right wrist surgery. Neuro: COMMON NORMALS: patient oriented x3 and moves all extremities SENSORIUM/ORIENTATION: Yes alert Skin: OTHER: Trace stasis dermatitis Sepsis: Is patient septic: Yes Data 01/05/23 17:04 01/05/23 17:04 A&P Assessment and plan (1) Altered mental status: Acute encephalopathy, delirium, confusion, hallucinations, seeing people who are not there. She denies any changes in her medications recently. She states that she has been taking all her medicines. Acute encephalopathy possibly metabolic secondary to pneumonia. Treat pneumonia as below. Reorient. Discussed with ER physician, she has remained calm, has not been trying to get up from bed. Fall precautions. Up with assist. Reorient. We will resume her psychiatric medications for now, hold Lyrica for now due to soft blood pressure, alteration mental status, however, if maintains blood pressure could be resumed at possibly lower dose. CT head appreciated. UA is pending. Add urine tox screen. No meningeal signs. Afebrile. No headache. No photophobia. Discussed with ER physician. ER documentation reviewed. (2) Community acquired pneumonia: Received Levaquin. Continue. Collect sputum culture. Urine bacterial antigens. MRSA PCR. Respiratory viral panel. Possible sepsis with leukocytosis 22.1, pulse 92. Pulmonary source. Lactate pending. With affected endorgan's with acute encephalopathy. Blood cultures collected. Received Levaquin. (3) Acute exacerbation of chronic obstructive pulmonary disease (COPD): Exacerbation of COPD with wheezing, cough, dyspnea. Antibiotics as above. We will give inhaled steroid, hold off systemic steroid due to encephalopathy so as not to make her delirium worse. Monitor her condition. So far maintaining oxygenation. Breathing treatments. Micro work-up as above. Normally on 2 L nasal cannula. Plan Right hand/wrist weakness: Holds it in extended position. States that she has not been able to close her hand or flex her wrist for a year. Prior carpal tunnel surgery on the wrist. Reported history of CVA affecting the right upper extremity. Consider further follow-up once acute condition improves. Polypharmacy: Reassess her medications once she is more alert to see if any nonessential wants to taper down. Smoking addiction: Discussed with her. She states she smokes half pack per day. Understands that she should quit, but is not intending to quit. Nicotine replacement as needed. DM2: Continue insulin. Add Accu-Cheks, SSI. CAD History of CVA History of CHF currently not in exacerbation History of seizure, currently without seizure-like activity A number of other comorbidities, see PMH. Attestations Medical Necessity Statement*: Admission of over 2 midnights is anticipated for assessment and management of acute encephalopathy, community-acquired pneumonia, COPD exacerbation, in a lady with polypharmacy, and number of comorbidities as above. Diagnoses Altered mental status R41.82 Community acquired pneumonia J18.9 Acute exacerbation of chronic obstructive pulmonary disease (COPD) J44.1
[2023-01-05] MEDS: levofloxacin-dextrose 5 % 750 MG/150 ML PREMIX 100 MG IV (20:59)
[2023-01-05 21:18] LABS: Lactate (Lactic Acid level) 1.8 mmol/L (0.5-2.2)
[2023-01-05 21:20] VITALS: BP 102/63; PULSE 98; RESP 16; O2SAT 95
[2023-01-05 21:36] VITALS: BP 102/63; PULSE 98; RESP 16; O2SAT 95
[2023-01-05 21:40] VITALS: BP 105/66; PULSE 92; RESP 19; TEMP 36.7; O2SAT 94; BMI 34.4
[2023-01-05 22:08] LABS: Add Urine Microscopic? NO; Charge for UA Resulting for Rev
[2023-01-05 22:11] LABS: Urine Appearance SL Hazy (CLEAR); Urine Color Yellow (Yellow); pH Urine 6 (5-7)
[2023-01-05 22:12] LABS: Bilirubin Urine Neg (Negative); Blood Urine Neg (Negative); Glucose Urine UA 4+ (Normal); Ketones Urine Negative (Negative); Leukocyte Esterase Urine Negative (Negative); Nitrate Urine Negative (Negative); Protein Urine Neg (Negative); Urobilinogen Urine Norm (Negative)
[2023-01-05 22:16] LABS: Erythrocyte Sedimentation Rate 34 mm/hr (0-15)
[2023-01-05 22:31] VITALS: RESP 16
[2023-01-05] MEDS: ticagrelor 90 mg Tablet PO (22:31)
[2023-01-05] MEDS: quetiapine 100 mg Tablet 200 MG PO (22:31)
[2023-01-05] MEDS: morphine IR 15 mg Tablet PO (22:31)
[2023-01-05] MEDS: zonisamide 100 MG Capsule 400 MG PO (22:31)
[2023-01-05] MEDS: cyclobenzaprine 10 mg Tablet PO (22:31)
[2023-01-05 22:32] LABS: Amphetamines Screen Urine Negative (Negative); Barbiturates Screen Urine Negative (Negative); Benzodiazepines Screen Urine Negative (Negative); Cocaine Screen Urine Negative (Negative); Opiate Screen Urine Positive (Negative); PCP Screen Urine Negative (Negative); THC Screen Urine Negative (Negative)
[2023-01-05 22:34] LABS: Glucose Point of Care 208 mg/dL (70-110)
[2023-01-05 23:45] LABS: Adenovirus Not Detected (NOT DETECT); Chlamydia Pneumoniae Not Detected (NOT DETECT); Coronavirus 229E,HKU1,NL63,OC4 Not Detected (NOT DETECT); Human Metapneumovirus Not Detected (NOT DETECT); Human Rhinovirus/Enterovirus Not Detected (NOT DETECT); Influenza A Not Detected (NOT DETECT); Influenza A H1 Not Detected (NOT DETECT); Influenza A H1-2009 Not Detected (NOT DETECT); Influenza A H3 Not Detected (NOT DETECT); Influenza B Not Detected (NOT DETECT); Mycoplasma Pneumoniae Not Detected (NOT DETECT); Parainfluenza Virus Type 1 Not Detected (NOT DETECT); Parainfluenza Virus Type 2 Not Detected (NOT DETECT); Parainfluenza Virus Type 3 Not Detected (NOT DETECT); Parainfluenza Virus Type 4 Not Detected (NOT DETECT); Respiratory Syncytial Virus A Not Detected (NOT DETECT); Respiratory Syncytial Virus B Not Detected (NOT DETECT); SARS-COV-2 Not Detected (NOT DETECT)
[2023-01-06] VITALS (13 sets, daily range): BP systolic 89–117; BP diastolic 59–79; PULSE 69–94; RESP 17–21; TEMP 36.4–36.9; O2SAT 91–98
[2023-01-06] MEDS: pantoprazole DR 40 mg Tablet PO (05:40)
[2023-01-06] MEDS: metoprolol succinate ER (24 HR) 25 mg Tablet 12.5 MG PO (05:41)
[2023-01-06] MEDS: insulin glargine 100 units/1 mL 35 UNIT SUBCUT (05:41)
[2023-01-06] MEDS: aspirin 81 mg EC Tablet PO (05:41)
[2023-01-06] MEDS: atorvastatin 40 mg Tablet 80 MG PO (05:41)
[2023-01-06] MEDS: morphine IR 15 mg Tablet PO ×2 (06:14→20:21)
--- NOTE | 2023-01-06 06:23 | PC.PHAR ---
Consult of home meds that can cause eosinophilia Levetiracetam can increase eosinophils Zonegran can have a drug reaction with eosinophilia and systemic symptoms (DRESS) also known as multiorgan hypersensitivity Drug hypersensitivity. Drugs which more commonly cause eosinophilia include anticonvulsants, allopurinol, sulfonamides and certain antibiotics. When eosinophilia is accompanied by a rash and systemic symptoms, this is called the DRESS syndrome ( Drug Reaction with Eosinophilia and Systemic Symptoms). Churg-Gladis syndrome. Thank you, Aura Cline [facility]
[2023-01-06 06:38] LABS: Thyroid Stimulating Hormone 1.61 uIU/mL (0.27-4.20)
[2023-01-06 06:54] LABS: Glucose Point of Care 220 mg/dL (70-110)
[2023-01-06] MEDS: ipratropium-albuterol 3 mL Neb INHALATION ×3 (08:10→21:50)
[2023-01-06] MEDS: insulin lispro 100 unit/1 mL SUBCUT ×4 (08:33→23:05)
[2023-01-06] MEDS: levETIRAcetam 500 mg Tablet PO ×2 (08:33→17:27)
[2023-01-06] MEDS: oxybutynin chloride XL 5 MG TABLET PO (08:33)
[2023-01-06] MEDS: FUROsemide 40 mg Tablet PO (08:33)
[2023-01-06] MEDS: duloxetine 60 mg Capsule PO (08:33)
[2023-01-06] MEDS: ticagrelor 90 mg Tablet PO ×2 (08:33→20:20)
[2023-01-06] MEDS: isosorbide mononitrate ER 30 mg Tablet PO (08:33)
--- NOTE | 2023-01-06 10:43 | PC.CHAP ---
Pastoral Care Encounter/Spiritual Assessment Type of Contact [] Declined grounding engineer visit [] Patient/Family/Request visit [] Outpatient visit [] Follow-up visit [] Physician referral [] Code/Alert [x] Routine visit [] Staff referral [] Actively dying [] Patient sleeping [] Family support [] [] Out of room [] Palliative care [] [x] Receiving care in room [] Pre-surgical visit [] Trauma [] Long length of stay [] ICU visit [] Other: Relational/Emotional Strength [x] Patient feels connected with others/family/visitors/staff [] Distress [] Loneliness/isolation [] Abandonment Spirituality of Patient [x] Person of Mary [] Attends Denominational of their Mary [x] Believes in Prayer [] Reads Bible or Zoroastrian materials [] There are Spiritual issues to be addressed Suppression Crew Leader Interventions [x] Prayer [x] Active listening [x] Non-anxious presence [x] Spiritual/emotional support [] Crisis/trauma care [x] Spiritual counseling [] Bereavement support [] Provided bereavement packet [] Provided Bible/devotional materials [] Provided toy/stuffed animal, coloring book to patient or family member [] Provided Communion [] Anointing/[place] [] Salvation [x] Completed spiritual assessment [] Other: Impact on Illness or Injury [] Angry [] Fearful [] Anxious [] Often cries [] Exhaustion [] Unable to work [] Unable to attend jew [] Unable to walk/stand [] Unable to read [] Unable to drive [] Unable to eat/drink [] Unable to sleep [] Unable to be with family [] Patient intubated [] Other: Summary senior fusion on back in nsome pain has a good attitude well be going home Time spent with patient 10 mins
[2023-01-06 12:03] LABS: Glucose Point of Care 194 mg/dL (70-110)
[2023-01-06] MEDS: sodium chlor 0.9% + KCl 20 mEq 20 MEQ/1,000 ML BAG 75 MEQ IV (12:57)
[2023-01-06] MEDS: meropenem 1,000 MG in sodium chloride 0.9% (plus) 50 ML 100 MG IV ×2 (13:05→23:04)
[2023-01-06] MEDS: vancomycin 1,250 MG/250 ML PIGGYBACK 200 MG IV (14:04)
[2023-01-06 14:38] LABS: Folate Level 10.8 ng/mL (4.8-37.3); Vitamin B12 319 pg/mL (232-1245)
[2023-01-06 16:19] LABS: Glucose Point of Care 167 mg/dL (70-110)
--- NOTE | 2023-01-06 17:52 | PM.PN ---
Subjective Subjective: Admitted overnight. H&P and labs appreciated. On examination patient lying comfortably in bed. Sleeping, at first on examination. Wakes up on verbal stimulus. On 2 L of oxygen supplementation. Patient is awake and alert to self, place, reason for being in the hospital. She states she was brought in because she was told she was confused. Blood pressure since admission on softer side. Vitals/I&O/Wt Last Vital Signs Temp 97.6 F 01/06/23 15:00 Pulse 92 01/06/23 15:00 Resp 18 01/06/23 15:00 BP 101/69 01/06/23 15:00 Pulse Ox 94 01/06/23 15:00 O2 Del Method 01/06/23 13:42 O2 Flow Rate 2 01/06/23 13:42 01/06/23 01/06/23 01/06/23 06:59 14:59 22:59 Intake Total 720 / 1870 1010 / 1010 250 / 1260 Balance 720 / 1870 1010 / 1010 250 / 1260 Weight last 48 hrs Weight 93.979 kg Weight 87.997 kg Physical Exam Const: COMMON NORMALS: patient oriented x3 and alert GENERAL APPEARANCE: cooperative NUTRITIONAL APPEARANCE: obese ORIENTATION/CONSCIOUSNESS: Yes awake and Yes confused HENMT: COMMON NORMALS: oropharynx normal Neck/C-Spine: COMMON NORMALS: no JVD Resp: COMMON NORMALS: normal respiratory effort AUSCULTATION: rhonchi, wheezes and diminished lung sounds Cardio: COMMON NORMALS: no JVD, regular rhythm, S1 normal heart sound present, S2 normal heart sound present and No murmurs present (Cardio) RHYTHM: regular rhythm HEART SOUNDS: S1 normal heart sound present and S2 normal heart sound present GI: COMMON NORMALS: Normal to inspection, nondistended, normoactive bowel sounds present, Soft to palpation and non-tender PALPATION: Yes Soft to palpation Extremity: COMMON NORMALS: no joint enlargement GENERAL: Yes edema (Trace nonpitting) OTHER: Extended bowel meant right wrist, which she is holding in that position. I am able to close it, and she does not complain of pain. No erythema or swelling. She seems to be able to approximated minimally, but states otherwise cannot flex wrist or close her hand. Healed scar from prior right wrist surgery. Neuro: COMMON NORMALS: patient oriented x3 and moves all extremities SENSORIUM/ORIENTATION: Yes alert Skin: OTHER: Trace stasis dermatitis Data 01/05/23 17:04 01/05/23 17:04 Micro: Microbiology 01/05/23 21:23 Legionella Urinary Antigen - Final Urine,Voided Bacterial Antigens - Final 01/05/23 21:40 MRSA Culture - Final Nose 01/05/23 20:40 Blood Culture - Preliminary Blood SPECIMEN COLLECTED 01/05/23 20:40 Blood Culture - Preliminary Blood SPECIMEN COLLECTED A&P Assessment and plan (1) Altered mental status: Acute encephalopathy, delirium, confusion, hallucinations, seeing people who are not there. She denies any changes in her medications recently. She states that she has been taking all her medicines. Acute encephalopathy possibly metabolic secondary to pneumonia versus possible polypharmacy. CT head negative for any acute abnormality. Patient takes duloxetine 60 mg daily, Seroquel 200 mg daily, Lyrica 150 mg twice daily, 100 mg daily, morphine 15-30 mg p.o. every 4-6 hours. Frequent reorientation. Sitter if needed. Check ammonia levels. Follow-up Keppra and zonisamide levels. Continue patient on duloxetine at home dose, Seroquel at 100 mg daily, holding off on Lyrica, morphine 15 mg every 8 hourly as needed. We will start Lyrica at a lower dose tomorrow. Appreciate urinalysis, urine drug screen, respiratory viral panel. Check CT chest to further quantify pneumonia. If CT chest does relatively normal we will plan for CT knee given history of knee infection however gluteal infection in the past. Check ESR, CRP. (2) Community acquired pneumonia: Seen on chest x-ray in the ER. Patient not requiring high oxygen supplementation follow hold off on CT imaging. Switch to vancomycin and meropenem given history of MRSA and ESBL in the past. Patient is allergic to penicillin. Patient has eosinophilia on peripheral smear. On review she does have eosinophilia on and off in the past as well. Aspergillus galactomannan sent in on admission. We will continue to follow. Most likely in relation to the home medication. Continue to monitor daily. Continue with home dose of loratadine. (3) Hypotension: Goal blood pressure less than 140/90 mmHg with mean over 65. Blood pressure soft today. Start on IV hydration with normal saline and 20 mg of potassium at 75 cc/h. Hold off on antihypertensives including Imdur and Lasix for now. Watch for fluid overload. Continue with metoprolol to avoid reflex tachycardia. (4) Acute exacerbation of chronic obstructive pulmonary disease (COPD): Exacerbation of COPD with wheezing, cough, dyspnea. Antibiotics as above. Continue with DuoNebs every 6 hour, budesonide twice daily. Oxygen supplementation keeping saturation over 90%. Chronically on 2 L at home. (5) Essential hypertension: (6) Generalized epilepsy: (7) CAD (coronary artery disease): Qualifiers: Coronary Disease-Associated Artery/Lesion type: [place] artery [place] vs. transplanted heart: [place] heart Associated angina: without angina Qualified Code(s): I25.10 - Atherosclerotic heart disease of [place] coronary artery without angina pectoris (8) Depression: Plan Smoking addiction: Discussed with her. She states she smokes half pack per day. Understands that she should quit, but is not intending to quit. Nicotine replacement as needed. DM2: Check HbA1c. Continue insulin. Add Accu-Cheks, SSI. CAD History of CVA History of CHF currently not in exacerbation History of seizure, currently without seizure-like activity A number of other comorbidities, see PMH. Full code. Carbohydrate consistent diet. Protonix OPD prophylaxis Heparin 5000 subcu every 12 hours for DVT prophylaxis Attestations Medical Necessity Statement*: Requires further hospitalization for management of altered mental status in setting of possible pneumonia versus possible polypharmacy Diagnoses Altered mental status R41.82 Community acquired pneumonia J18.9 Hypotension I95.9 Acute exacerbation of chronic obstructive pulmonary disease (COPD) J44.1 Essential hypertension I10 Generalized epilepsy G40.309 CAD (coronary artery disease) I25.10 Coronary Disease-Associated Artery/Lesion type: [place] artery [place] vs. transplanted heart: [place] heart Associated angina: without angina Depression F32.A
[2023-01-06] MEDS: zonisamide 100 MG Capsule 400 MG PO (20:20)
[2023-01-06] MEDS: quetiapine 100 mg Tablet PO (20:20)
[2023-01-06] MEDS: cyclobenzaprine 10 mg Tablet PO (20:22)
[2023-01-06] MEDS: levofloxacin-dextrose 5 % 750 MG/150 ML PREMIX 100 MG IV (20:24)
[2023-01-06] MEDS: budesonide 0.5 mg/2 mL Neb INHALATION (21:50)
[2023-01-06 21:54] LABS: Glucose Point of Care 208 mg/dL (70-110)
[2023-01-06] MEDS: cyanocobalamin 1,000 mcg/mL SDV 1000 MCG IM (23:06)
[2023-01-07] VITALS (12 sets, daily range): BP systolic 99–142; BP diastolic 67–101; PULSE 69–94; RESP 16–20; TEMP 36.5–36.8; O2SAT 91–98
[2023-01-07] MEDS: acetaminophen 325 mg Tablet 650 MG PO ×2 (00:48→10:32)
[2023-01-07] MEDS: vancomycin 1,250 MG/250 ML PIGGYBACK 200 MG IV ×2 (02:54→15:05)
[2023-01-07] MEDS: sodium chlor 0.9% + KCl 20 mEq 20 MEQ/1,000 ML BAG 75 MEQ IV ×2 (02:55→20:54)
[2023-01-07] MEDS: ipratropium-albuterol 3 mL Neb INHALATION ×3 (03:05→20:05)
[2023-01-07] MEDS: insulin glargine 100 units/1 mL 35 UNIT SUBCUT (05:41)
[2023-01-07] MEDS: aspirin 81 mg EC Tablet PO (05:42)
[2023-01-07] MEDS: pantoprazole DR 40 mg Tablet PO (05:42)
[2023-01-07] MEDS: atorvastatin 40 mg Tablet 80 MG PO (05:42)
[2023-01-07 06:09] LABS: Basophils # 0.1 10^3/uL (0.0-0.1); Basophils % 0.6 %; Eosinophils # 1.2 10^3/uL (0.0-0.8); Eosinophils % 8.6 %; Hemoglobin 10.5 g/dL (11.5-15.3); Lymphocytes # 3.3 10^3/uL (0.8-4.8); Lymphocytes % 24.4 %; Mean Corpuscular HGB Conc 31.8 g/dL (30.0-36.0); Mean Corpuscular Hemoglobin 25.1 pg (28.0-34.0); Mean Corpuscular Volume 78.9 fl (81-99); Mean Platelet Volume 8.8 fL (7.4-10.4); Monocytes # 1.1 10^3/uL (0.2-0.9); Monocytes % 8.5 %; Neutrophils # 7.64 10^3/uL (1.8-7.7); Neutrophils % 56.9 %; Nucleated Red Blood Cells % 0 %; Platelet Count 500 10^3/cmm (130-400); Red Blood Count 4.18 10^6/uL (4.1-5.3); Red Cell Distribution Width 15.9 % (12.1-15.1); White Blood Count 13.4 10^3/uL (4.0-10.0)
[2023-01-07] MEDS: meropenem 1,000 MG in sodium chloride 0.9% (plus) 50 ML 100 MG IV ×2 (06:20→16:42)
[2023-01-07 06:33] LABS: Glucose Point of Care 178 mg/dL (70-110)
[2023-01-07 06:35] LABS: Alanine Aminotransferase 10 U/L (0-33); Albumin Level 2.9 g/dL (3.5-5.2); Alkaline Phosphatase 71 U/L (35-105); Anion Gap 13.9 (5-19); Aspartate Amino Transferase 11 U/L (0-32); Blood Urea Nitrogen 11 mg/dL (6-20); Calcium 8.9 mg/dL (8.5-10.5); Carbon Dioxide 22 mmol/L (22-29); Chloride 108 mmol/L (98-107); Globulin 2.9 g/dL (1.3-4.6); Glomerular Filtration Rate 86.9 mL/min (90-130); Glucose 171 mg/dL (65-115); Osmolality Calculated 293 mOsm/kg (285-295); Potassium 3.9 mmol/L (3.5-5.1); Sodium 140 mmol/L (136-145); Total Bilirubin 0.2 mg/dL (0.15-1.2); Total Protein 5.8 g/dL (6.6-8.7)
[2023-01-07] MEDS: insulin lispro 100 unit/1 mL SUBCUT ×3 (08:33→23:32)
[2023-01-07] MEDS: cyanocobalamin 1,000 mcg Tablet 500 MCG PO (08:34)
[2023-01-07] MEDS: duloxetine 60 mg Capsule PO (08:35)
[2023-01-07] MEDS: levETIRAcetam 500 mg Tablet PO ×2 (08:35→18:25)
[2023-01-07] MEDS: oxybutynin chloride XL 5 MG TABLET PO (08:35)
[2023-01-07] MEDS: ticagrelor 90 mg Tablet PO ×2 (08:35→20:47)
[2023-01-07] MEDS: morphine IR 15 mg Tablet PO ×2 (08:40→16:42)
[2023-01-07] MEDS: cyclobenzaprine 10 mg Tablet PO ×2 (10:32→20:51)
--- NOTE | 2023-01-07 11:59 | XR_ITS ---
WS: [id number] EXAMINATION: XR wrist RT 2V [id number] REASON FOR EXAM: Pain,swelling COMPARISON: None available. ORDER DATE: 01/07/2023 12:25 PM . FINDINGS: There is no sign of any acute osseous or articular abnormality. There are no specific soft tissue abn ormalities. There is diffuse osteoporosis. XR/XR wrist RT 2V [id number] IMPRESSION: No acute fracture
[2023-01-07 12:13] LABS: Glucose Point of Care 201 mg/dL (70-110)
--- NOTE | 2023-01-07 14:08 | PC.PHAR ---
Vancomycin: Pharmacy to dose (Policy[facility] ID: [id number]) Trough values drawn before doses 3-5: entered lab before 5th dose to avoid waking, value due 1329
[2023-01-07 14:45] LABS: Levetiracetam Immunoassy 14.9 mcg/mL (6.0-46.0)
--- NOTE | 2023-01-07 14:46 | P.PN_ITS ---
Subjective Subjective: No acute events overnight. Patient has remained hemodynamically stable and afebrile. Patient seen with family at bedside. Patient is a lot more awake and alert. Able to have complete conversation. Patient denies any nausea, vomiting, headache. Patient is able to go over the details of her home oral medications today. Denies any difficulty in breathing. As per daughter patient was having occasional episodes of confusion for last 3 to 4 days prior to admission without any recent updates in medications or new complaints. Vitals/I&O/Wt Last Vital Signs Temp 98.0 F 01/07/23 11:28 Pulse 87 01/07/23 13:28 Resp 18 01/07/23 13:28 BP 106/67 01/07/23 11:28 Pulse Ox 98 01/07/23 13:28 O2 Del Method 01/07/23 13:28 O2 Flow Rate 2 01/07/23 07:55 01/06/23 01/07/23 01/07/23 22:59 06:59 14:59 Intake Total 1120 / 2130 1650 / 3780 Balance 1120 / 2130 1650 / 3780 Weight last 48 hrs Weight 93.979 kg Weight 87.997 kg Physical Exam Const: COMMON NORMALS: patient oriented x3 and alert GENERAL APPEARANCE: cooperative NUTRITIONAL APPEARANCE: obese ORIENTATION/CONSCIOUSNESS: Yes awake and Yes confused HENMT: COMMON NORMALS: oropharynx normal Neck/C-Spine: COMMON NORMALS: no JVD Resp: COMMON NORMALS: normal respiratory effort AUSCULTATION: rhonchi, wheezes and diminished lung sounds Cardio: COMMON NORMALS: no JVD, regular rhythm, S1 normal heart sound present, S2 normal heart sound present and No murmurs present (Cardio) RHYTHM: regular rhythm HEART SOUNDS: S1 normal heart sound present and S2 normal heart sound present GI: COMMON NORMALS: Normal to inspection, nondistended, normoactive bowel sounds present, Soft to palpation and non-tender PALPATION: Yes Soft to palpation Extremity: COMMON NORMALS: no joint enlargement GENERAL: Yes edema (Trace nonpitting) OTHER: Extended bowel meant right wrist, which she is holding in that position. I am able to close it, and she does not complain of pain. No erythema or swelling. She seems to be able to approximated minimally, but states otherwise cannot flex wrist or close her hand. Healed scar from prior right wrist surgery. Neuro: COMMON NORMALS: patient oriented x3 and moves all extremities SENSORIUM/ORIENTATION: Yes alert Skin: OTHER: Trace stasis dermatitis Data 01/07/23 05:50 01/07/23 05:50 Micro: Microbiology 01/05/23 20:40 Blood Culture - Preliminary Blood NEGATIVE TO DATE 01/05/23 20:40 Blood Culture - Preliminary Blood NEGATIVE TO DATE 01/05/23 21:23 Legionella Urinary Antigen - Final Urine,Voided Bacterial Antigens - Final 01/05/23 21:40 MRSA Culture - Final Nose A&P Assessment and plan (1) Altered mental status: Acute encephalopathy, delirium, confusion, hallucinations, seeing people who are not there. She denies any changes in her medications recently. She states that she has been taking all her medicines. Acute encephalopathy possibly metabolic secondary to pneumonia versus possible polypharmacy. CT head negative for any acute abnormality. Patient takes duloxetine 60 mg daily, Seroquel 200 mg daily, Lyrica 150 mg twice daily, 100 mg daily, morphine 15-30 mg p.o. every 4-6 hours. Frequent reorientation. Sitter if needed. Vitamin B12, folate levels are appreciated. Start on oral cyanocobalamin. Keppra levels appropriate. Follow-up zonisamide levels. Continue patient on duloxetine at home dose, Seroquel at 100 mg daily, start Lyrica at 75 mg twice daily, morphine 15 mg every 8 hourly as needed. Appreciate urinalysis, urine drug screen, respiratory viral panel. Check CT chest results appreciated. ESR and CRP mildly elevated. (2) Community acquired pneumonia: Seen on chest x-ray in the ER. Not appreciated on CT scan. But concerns for hypersensitive pneumonitis. For now continue with Pulmicort and DuoNebs. Patient would most likely need a PFT as an outpatient and follow-up with pulmonology. Patient not requiring high oxygen supplementation. Leukocytosis resolving. For now continue with broad-spectrum antibiotics with vancomycin and meropenem given history of MRSA and ESBL in the past. Patient is allergic to penicillin. We will plan to discontinue antibiotics in next 24 hours patient remains hemod ynamically stable and afebrile and monitor. Check procalcitonin. Patient has eosinophilia on peripheral smear. On review she does have eosinophilia on and off in the past as well. Aspergillus galactomannan sent in on admission. We will continue to follow. Most likely in relation to the home medication. Repatha which she takes at home for hypercholesterolemia also can cause eosinophilia Continue to monitor daily. (3) Hypotension: Goal blood pressure less than 140/90 mmHg with mean over 65. Blood pressure better but continued to be on softer side. Continue with IV hydration with normal saline and 20 mg of potassium at 75 cc/h. Holding off on antihypertensives including Imdur and Lasix for now. Watch for fluid overload. Continue with metoprolol to avoid reflex tachycardia. Most likely will plan to discharge patient on lesser antihypertensives with advised to maintain hydration. (4) Acute exacerbation of chronic obstructive pulmonary disease (COPD): Exacerbation of COPD with wheezing, cough, dyspnea. Antibiotics as above. Continue with DuoNebs every 6 hour, budesonide twice daily. Oxygen supplementation keeping saturation over 90%. Chronically on 2 L at home. (5) Essential hypertension: (6) Generalized epilepsy: (7) CAD (coronary artery disease): Qualifiers: Coronary Disease-Associated Artery/Lesion type: [place] artery [place] vs. transplanted heart: [place] heart Associated angina: without angina Qualified Code(s): I25.10 - Atherosclerotic heart disease of [place] coronary artery without angina pectoris (8) Depression: Plan Smoking addiction: Discussed with her. She states she smokes half pack per day. Understands that she should quit, but is not intending to quit. Nicotine replacement as needed. DM2: Check HbA1c. Continue insulin. Add Accu-Cheks, SSI. CAD History of CVA History of CHF currently not in exacerbation History of seizure, currently without seizure-like activity A number of other comorbidities, see PMH. Full code. Carbohydrate consistent diet. Protonix OPD prophylaxis Heparin 5000 subcu every 12 hours for DVT prophylaxis Attestations Medical Necessity Statement*: Requires further hospitalization for management of altered mental status which is resolving, hypoxia in setting of possible hypersensitive pneumonitis, low blood pressures Diagnoses Altered mental status R41.82 Community acquired pneumonia J18.9 Hypotension I95.9 Acute exacerbation of chronic obstructive pulmonary disease (COPD) J44.1 Essential hypertension I10 Generalized epilepsy G40.309 CAD (coronary artery disease) I25.10 Coronary Disease-Associated Artery/Lesion type: [place] artery [place] vs. transplanted heart: [place] heart Associated angina: without angina Depression F32.A
[2023-01-07 15:42] LABS: Procalcitonin 0.06 ng/mL (0-0.5)
--- NOTE | 2023-01-07 17:23 | PC.NURSE ---
Addendum entered by Harry Aguilar CNA 01/07/23 17:25: Patient 17:00 accucheck was 128 Original Note: Patient 17:00 accucheck was 197
[2023-01-07] MEDS: pregabalin 75 mg Capsule PO (18:25)
[2023-01-07] MEDS: budesonide 0.5 mg/2 mL Neb INHALATION (20:05)
--- NOTE | 2023-01-07 20:22 | CTR_ITS ---
PROCEDURE INFORMATION: Exam: CT Chest Without Contrast; Diagnostic Exam date and time: 01/07/2023 12:39 PM Age: 57 years old Clinical indication: Shortness of breath; Additional info: Pna TECHNIQUE: Imaging protocol: Diagnostic computed tomography of the chest without contrast. Radiation optimization: All CT scans at this facility use at least one of these dose optimization techniques: automated exposure control; mA and/or kV adjustment per patient size (includes targeted exams where dose is matched to clinical indication); or iterative reconstruction. REPORTING DATA: Count of CT and Cardiac NM exams in prior 12 months: This patient has received 3 known CTs and 0 known cardiac nuclear medicine studies in the 12 months prior to the current study. COMPARISON: 1. CT angio chest PE protcl [id number] 12/08/2021 8:10 PM 2. CR XR chest 1V portable [id number] 01/05/2023 5:[address] angio chest PE protcl [id number] 08/24/2021 9:13 PM RADIATION DOSE METRICS: Total DLP (mGy-cm): 507.8 FINDINGS: Lungs: Mild bilateral lung disease characterized by upper lung predominant patchy and diffuse ground-glass opacity with mild mosaic perfusion in the lower lungs. Bronchi are normal. There is a benign calcified granuloma in the left lower lobe. Pleural spaces: There is no pleural effusion or pneumothorax. Heart: Heart size is normal. Coronary arteries: Coronary stents are present. Lymph nodes: There are calcified left hilar lymph nodes consistent with healed granulomatous infection. Mediastinal and hilar lymphadenopathy visible on 12/08/2021 has largely resolved. There is a stable prominent 21 x 16 mm precarinal lymph node. Vasculature: There is mild aortic atherosclerotic disease. Spleen: Splenic size is normal. There are scattered calcifications consistent with healed granulomas. Intraperitoneal space: Visible structures in the upper abdomen are unremarkable. Bones/joints: Bones are unremarkable. Soft tissues: The extrathoracic soft tissues are unremarkable. CT/CT chest wo con [id number] IMPRESSION: 1. Chronic mild lung disease described above. Findings are stable compared to multiple prior CTs dating back to 08/24/2021. Findings are mildly progressive since 05/20/2021. Bilateral lower lobe consolidation visible on 12/08/2021 has resolved. Findings suggest hypersensitivity pneumonitis or inhalational injury. 2. Resolution of mediastinal and hilar lymphadenopathy since 12/08/2021.
[2023-01-07] MEDS: quetiapine 100 mg Tablet PO (20:47)
[2023-01-07] MEDS: zonisamide 100 MG Capsule 400 MG PO (20:47)
[2023-01-07 22:55] LABS: Glucose Point of Care 174 mg/dL (70-110)
[2023-01-08] VITALS (8 sets, daily range): BP systolic 109–141; BP diastolic 71–84; PULSE 80–93; RESP 16–20; TEMP 36.6–36.9; O2SAT 93–98
[2023-01-08] MEDS: morphine IR 15 mg Tablet PO ×2 (00:30→09:42)
[2023-01-08] MEDS: meropenem 1,000 MG in sodium chloride 0.9% (plus) 50 ML 100 MG IV ×2 (00:30→09:31)
[2023-01-08] MEDS: ipratropium-albuterol 3 mL Neb INHALATION ×2 (01:15→08:27)
[2023-01-08 03:56] LABS: Basophils # 0.2 10^3/uL (0.0-0.1); Basophils % 1.2 %; Eosinophils # 1.5 10^3/uL (0.0-0.8); Hematocrit 37.3 % (37.0-47.0); Hemoglobin 11.3 g/dL (11.5-15.3); Lymphocytes # 4.1 10^3/uL (0.8-4.8); Lymphocytes % 32.7 %; Mean Corpuscular HGB Conc 30.3 g/dL (30.0-36.0); Mean Corpuscular Hemoglobin 24.4 pg (28.0-34.0); Mean Corpuscular Volume 80.6 fl (81-99); Monocytes # 0.9 10^3/uL (0.2-0.9); Monocytes % 7.1 %; Neutrophils # 5.75 10^3/uL (1.8-7.7); Neutrophils % 45.7 %; Nucleated Red Blood Cells % 0 %; Platelet Count 526 10^3/cmm (130-400); Red Blood Count 4.63 10^6/uL (4.1-5.3); White Blood Count 12.6 10^3/uL (4.0-10.0)
[2023-01-08 04:03] LABS: Estmated Average Glucose 252; Hemoglobin A1C 10.4 % (4.0-6.0)
[2023-01-08 04:05] LABS: Alanine Aminotransferase 9 U/L (0-33); Albumin Level 3.2 g/dL (3.5-5.2); Alkaline Phosphatase 76 U/L (35-105); Anion Gap 15.3 (5-19); Aspartate Amino Transferase 9 U/L (0-32); Blood Urea Nitrogen 9 mg/dL (6-20); Calcium 8.9 mg/dL (8.5-10.5); Carbon Dioxide 20 mmol/L (22-29); Chloride 106 mmol/L (98-107); Globulin 3.1 g/dL (1.3-4.6); Glomerular Filtration Rate 103.8 mL/min (90-130); Glucose 154 mg/dL (65-115); Osmolality Calculated 286 mOsm/kg (285-295); Potassium 4.3 mmol/L (3.5-5.1); Sodium 137 mmol/L (136-145); Total Bilirubin 0.2 mg/dL (0.15-1.2); Total Protein 6.3 g/dL (6.6-8.7)
[2023-01-08 04:11] LABS: Vancomycin Trough 12.9 ug/mL (10-15)
[2023-01-08 04:34] LABS: Slide Review Slide Review Perform
[2023-01-08] MEDS: vancomycin 1,250 MG/250 ML PIGGYBACK 200 MG IV (04:35)
[2023-01-08] MEDS: aspirin 81 mg EC Tablet PO (06:17)
[2023-01-08] MEDS: atorvastatin 40 mg Tablet 80 MG PO (06:18)
[2023-01-08] MEDS: pantoprazole DR 40 mg Tablet PO (06:18)
[2023-01-08] MEDS: metoprolol succinate ER (24 HR) 25 mg Tablet 12.5 MG PO (06:18)
[2023-01-08 06:19] LABS: Glucose Point of Care 179 mg/dL (70-110)
[2023-01-08] MEDS: insulin glargine 100 units/1 mL 35 UNIT SUBCUT (06:28)
[2023-01-08] MEDS: budesonide 0.5 mg/2 mL Neb INHALATION (08:27)
[2023-01-08] MEDS: levETIRAcetam 500 mg Tablet PO (09:30)
[2023-01-08] MEDS: insulin lispro 100 unit/1 mL SUBCUT ×2 (09:30→12:12)
[2023-01-08] MEDS: oxybutynin chloride XL 5 MG TABLET PO (09:30)
[2023-01-08] MEDS: duloxetine 60 mg Capsule PO (09:30)
[2023-01-08] MEDS: pregabalin 75 mg Capsule PO (09:30)
[2023-01-08] MEDS: cyanocobalamin 1,000 mcg Tablet 500 MCG PO (09:31)
[2023-01-08] MEDS: ticagrelor 90 mg Tablet PO (09:31)
--- NOTE | 2023-01-08 09:36 | PC.SOCIAL ---
IMM update IMM updated with patient and childcare administrator at bedside. Copy Pg 2 provided. Verbalized an understanding. Initialled, dated, timed, and placed in chart.
[2023-01-08] MEDS: cyclobenzaprine 10 mg Tablet PO (10:26)
[2023-01-08 11:53] LABS: Glucose Point of Care 148 mg/dL (70-110)
--- NOTE | 2023-01-08 12:52 | PM.DCS ---
Discharge Providers Date of Admission: 01/05/23 20:39 Date of Discharge: January 08, 2023 Attending Provider at Admission: Avila Marie Attending Provider at Discharge: Cornelius Joyce MD Primary Care Provider: Laurel Eagle MD Diagnoses at Discharge Discharge Diagnosis (1) Altered mental status: Status: Acute (2) Community acquired pneumonia: Status: Acute (3) Hypotension: Status: Acute (4) Acute exacerbation of chronic obstructive pulmonary disease (COPD): Status: Acute (5) Essential hypertension: Status: Acute (6) Generalized epilepsy: Status: Acute (7) CAD (coronary artery disease): Status: Acute Qualifiers: Coronary Disease-Associated Artery/Lesion type: [place] artery [place] vs. transplanted heart: [place] heart Associated angina: without angina Qualified Code(s): I25.10 - Atherosclerotic heart disease of [place] coronary artery without angina pectoris (8) Depression: Status: Acute Reason for Visit Reason for Visit: Back pain, altered mental status Brief History: History as per HPI: Mayra Ascencio 57-year-old female was brought in for evaluation by her family, lives at home with her son, due to several days of confusion, with examples given of her seeing people who are not there.? She has been coughing, wheezing.? On my evaluation she herself provides some partial review of systems, seems somewhat confused, history not reliable.? She tells me she is here because of some weakness in the right hand and wrist with her not being able to close her hand which she tells me has been going on for about a year.? She does tell me that she had had a carpal tunnel surgery before.? She does confirm that she has been coughing, has been dyspneic.? Her family is no longer here. History obtained from ER physician and chart, including prior admission documentation. In ER she is found to have leukocytosis 22.1.? Predominantly neutrophilic, but some eosinophilia as well.? She is afebrile.? Heart rate in the 90s.? Glucose 208.? History of diabetes.? Anion gap 16.7, bicarb 26.? BUN 8, creatinine 0.7.? Unremarkable liver parameters.? NT proBNP only 236.? Unremarkable remaining chemistry. Chest x-ray with peripheral left midlung opacity new since previous suspicious for possible pneumonia.? Head CT without acute intracranial abnormality. Hospital Course Hospital Course Patient was admitted to hospital further evaluation and management of altered mental status. On admission there were concerns for infection given altered mental status and leukocytosis with possible source of pneumonia hence was started on broad-spectrum antibiotics as per culture history. Patient's leukocytosis responded rapidly. Patient remained hemodynamically stable and afebrile. CT chest was done which ruled out pneumonia. CT chest was concerning for a possible hypersensitive pneumonitis. It is believed her symptoms of altered mental status on admission were most likely in setting of dehydration from hyperglycemia and polypharmacy. Patient is advised to take Lantus 35 units daily along with insulin sliding scale premeals. Multiple medication changes have been done. Dose of Lyrica has been decreased to 75 mg twice daily, Seroquel has been changed to 150 mg daily. Other etiologies including Keppra levels and Zonegran levels were ruled out. CT head was done which ruled out stroke. Patient did have soft blood pressures on admission which again is thought to be secondary to dehydration. Her dose of Imdur has been decreased to 30 mg twice daily. Lasix has been changed to 40 mg daily. Metoprolol has been changed to 12.5 mg daily. During hospitalization patient was found to be eosinophilic. On review of old labs patient has been having on and off eosinophilia in the past as well. CT chest was consistent with a possible hypersensitive pneumonitis which was discussed in detail with pulmonology who advises patient to be on an steroid inhaler and a pulmonary function test and a follow-up as an outpatient. Multiple changes as described above were discussed in detail with patient and patient's daughter at bedside. And both verbalized understanding. Physical Exam Const: COMMON NORMALS: patient oriented x3 and alert GENERAL APPEARANCE: cooperative NUTRITIONAL APPEARANCE: obese ORIENTATION/CONSCIOUSNESS: Yes awake and Yes confused HENMT: COMMON NORMALS: oropharynx normal Neck/C-Spine: COMMON NORMALS: no JVD Resp: COMMON NORMALS: normal respiratory effort AUSCULTATION: rhonchi, wheezes and diminished lung sounds Cardio: COMMON NORMALS: no JVD, regular rhythm, S1 normal heart sound present, S2 normal heart sound present and No murmurs present (Cardio) RHYTHM: regular rhythm HEART SOUNDS: S1 normal heart sound present and S2 normal heart sound present GI: COMMON NORMALS: Normal to inspection, nondistended, normoactive bowel sounds present, Soft to palpation and non-tender PALPATION: Yes Soft to palpation Extremity: COMMON NORMALS: no joint enlargement GENERAL: Yes edema (Trace nonpitting) OTHER: Extended bowel meant right wrist, which she is holding in that position. Neuro: COMMON NORMALS: patient oriented x3 and moves all extremities SENSORIUM/ORIENTATION: Yes alert Skin: OTHER: Trace stasis dermatitis Discharge Data Studies Completed and Pending Completed Studies During Hospitalization Category Date Time Status CT chest wo con [id number] Routine Cat Scan 01/07/23 20:[address] head wo con* [id number] Stat Cat Scan 01/05/23 17:08 Completed XR chest 1V portable [id number] Stat Exams 01/05/23 17:08 Completed XR wrist RT 2V [id number] Routine Exams 01/07/23 11:59 Completed Pending at discharge Category Date Time Status Aspergillus AG,EIA,Serum Routine Lab 01/05/23 21:33 Received Blood Culture Stat Lab 01/05/23 20:40 Results OVA and Parasites, Conc and PE Routine Lab 01/05/23 21:33 Uncollected Sputum Culture and Gram Stain Routine Lab 01/05/23 21:33 Uncollected Zonisamide (Zonegran) Routine Lab 01/05/23 17:04 Received Radiology Impressions Chest X-Ray 01/05/23 17:08 IMPRESSION: Peripheral left midlung opacity is new since previous and suspicious for possible pneumonia. Correlate clinically. Head CT 01/05/23 17:08 IMPRESSION: No acute intracranial abnormality. Wrist X-Ray 01/07/23 11:59 IMPRESSION: No acute fracture Chest CT 01/07/23 20:22 IMPRESSION: 1. Chronic mild lung disease described above. Findings are stable compared to multiple prior CTs dating back to 08/24/2021. Findings are mildly progressive since 05/20/2021. Bilateral lower lobe consolidation visible on 12/08/2021 has resolved. Findings suggest hypersensitivity pneumonitis or inhalational injury. 2. Resolution of mediastinal and hilar lymphadenopathy since 12/08/2021. Laboratory Results WBC 12.6 10^3/uL (4.0-10.0) H 01/08/23 03:37 RBC 4.63 10^6/uL (4.1-5.3) 01/08/23 03:37 Hgb 11.3 g/dL (11.5-15.3) L 01/08/23 03:37 Hct 37.3 % (37.0-47.0) 01/08/23 03:37 MCV 80.6 fl (81-99) L 01/08/23 03:37 MCH 24.4 pg (28.0-34.0) L 01/08/23 03:37 MCHC 30.3 g/dL (30.0-36.0) 01/08/23 03:37 RDW 16.0 % (12.1-15.1) H 01/08/23 03:37 Plt Count 526 10^3/cmm (130-400) H 01/08/23 03:37 MPV 9.0 fL (7.4-10.4) 01/08/23 03:37 Neut % (Auto) 45.7 % 01/08/23 03:37 Lymph % (Auto) 32.7 % 01/08/23 03:37 [place] % (Auto) 7.1 % 01/08/23 03:37 Eos % (Auto) 12.0 % 01/08/23 03:37 Baso % (Auto) 1.2 % 01/08/23 03:37 Neut # (Auto) 5.75 10^3/uL (1.8-7.7) 01/08/23 03:37 Lymph # (Auto) 4.1 10^3/uL (0.8-4.8) 01/08/23 03:37 [place] # (Auto) 0.9 10^3/uL (0.2-0.9) 01/08/23 03:37 Eos # (Auto) 1.5 10^3/uL (0.0-0.8) H 01/08/23 03:37 Baso # (Auto) 0.2 10^3/uL (0.0-0.1) H 01/08/23 03:37 Nucleated RBC % (auto) 0 % 01/08/23 03:37 Nucleated RBCs # 0.0 /100WBC 01/08/23 03:37 ESR 34 mm/hr (0-15) H 01/05/23 17:04 PT 13.40 SECONDS (12.1-14.9) 01/05/23 17:04 INR 0.99 (0.8-1.2) 01/05/23 17:04 Sodium 137 mmol/L (136-145) 01/08/23 03:37 Potassium 4.3 mmol/L (3.5-5.1) 01/08/23 03:37 Chloride 106 mmol/L (98-107) 01/08/23 03:37 Carbon Dioxide 20 mmol/L (22-29) L 01/08/23 03:37 Anion Gap 15.3 (5-19) 01/08/23 03:37 BUN 9 mg/dL (6-20) 01/08/23 03:37 Creatinine 0.6 mg/dL (0.5-0.9) 01/08/23 03:37 GFR Calculation 103.8 mL/min (90-130) 01/08/23 03:37 Glucose 154 mg/dL (65-115) H 01/08/23 03:37 POC Glucose 148 mg/dL (70-110) H 01/08/23 11:43 Estimat Average Glucose 252 01/08/23 03:37 Hemoglobin A1c 10.4 % (4.0-6.0) H 01/08/23 03:37 Calculated Osmolality 286 mOsm/kg (285-295) 01/08/23 03:37 Lactate 1.8 mmol/L (0.5-2.2) 01/05/23 20:30 Calcium 8.9 mg/dL (8.5-10.5) 01/08/23 03:37 Total Bilirubin 0.2 mg/dL (0.15-1.2) 01/08/23 03:37 AST 9 U/L (0-32) 01/08/23 03:37 ALT 9 U/L (0-33) 01/08/23 03:37 Alkaline Phosphatase 76 U/L (35-105) 01/08/23 03:37 NT-Pro-B Natriuret Pep 236 pg/mL (0-125) H 01/05/23 17:04 Total Protein 6.3 g/dL (6.6-8.7) L 01/08/23 03:37 Albumin 3.2 g/dL (3.5-5.2) L 01/08/23 03:37 Globulin 3.1 g/dL (1.3-4.6) 01/08/23 03:37 Vitamin B12 319 pg/mL (232-1245) 01/06/23 13:12 Folate 10.8 ng/mL (4.8-37.3) 01/06/23 13:12 Procalcitonin 0.06 ng/mL (0-0.5) 01/07/23 05:50 TSH 1.61 uIU/mL (0.27-4.20) 01/06/23 05:33 Urine Color Yellow (Yellow) 01/05/23 21: Urine Appearance Sl hazy (CLEAR) A 01/05/23 21: Urine pH 6 (5-7) 01/05/23 21: Ur Specific [place] 1.010 (1.005-1.030) 01/05/23 21: Urine Protein Neg (Negative) 01/05/23 21: Urine Glucose (UA) 4+ (Normal) H 01/05/23 21: Urine Ketones Negative (Negative) 01/05/23 21: Urine Blood Neg (Negative) 01/05/23 21: Urine Nitrate Negative (Negative) 01/05/23 21: Urine Bilirubin Neg (Negative) 01/05/23 21: Urine Urobilinogen Norm mg/dL (Negative) 01/05/23 21: Ur Leukocyte Esterase Negative (Negative) 01/05/23 21: Nasal Influ A H1 2008 PCR Not detected (NOT DETECT) 01/05/23 21:40 Vancomycin Trough 12.9 ug/mL (10-15) 01/08/23 03:37 Urine Opiates Screen Positive ng/mL (Negative) H 01/05/23 21: Ur Barbiturates Screen Negative ng/mL (Negative) 01/05/23 21: Levetiracetam 14.9 mcg/mL (6.0-46.0) 01/05/23 17:04 Ur Phencyclidine Scrn Negative ng/mL (Negative) 01/05/23 21: Ur Amphetamines Screen Negative ng/mL (Negative) 01/05/23 21: U Benzodiazepines Scrn Negative ng/mL (Negative) 01/05/23 21: Urine Cocaine Screen Negative ng/mL (Negative) 01/05/23 21: U Marijuana (THC) Screen Negative ng/mL (Negative) 01/05/23 21: Adenovirus (PCR) Not detected (NOT DETECT) 01/05/23 21:40 C. pneumoniae DNA (PCR) Not detected (NOT DETECT) 01/05/23 21:40 Coronavirus 229E (PCR) Not detected (NOT DETECT) 01/05/23 21:40 Human Metapneumovir PCR Not detected (NOT DETECT) 01/05/23 21:40 Influenza A (H1) PCR Not detected (NOT DETECT) 01/05/23 21:40 Influenza A (H3) PCR Not detected (NOT DETECT) 01/05/23 21:40 Influenza Type A (PCR) Not detected (NOT DETECT) 01/05/23 21:40 Influenza Type B (PCR) Not detected (NOT DETECT) 01/05/23 21:40 M. pneumoniae (PCR) Not detected (NOT DETECT) 01/05/23 21:40 Parainfluenza 1 (PCR) Not detected (NOT DETECT) 01/05/23 21:40 Parainfluenza 2 (PCR) Not detected (NOT DETECT) 01/05/23 21:40 Parainfluenza 3 (PCR) Not detected (NOT DETECT) 01/05/23 21:40 Parainfluenza 4 (PCR) Not detected (NOT DETECT) 01/05/23 21:40 RSV Type A (PCR) Not detected (NOT DETECT) 01/05/23 21:40 RSV Type B (PCR) Not detected (NOT DETECT) 01/05/23 21:40 Entero/Rhino (PCR) Not detected (NOT DETECT) 01/05/23 21:40 SARS-CoV-2 (PCR) Not detected (NOT DETECT) 01/05/23 21:40 Vitals Last Vital Signs Temp 98.5 F 01/08/23 07:57 Pulse 84 01/08/23 11:53 Resp 17 01/08/23 11:53 BP 141/84 01/08/23 11:53 Pulse Ox 95 01/08/23 11:53 O2 Del Method 01/08/23 08:27 O2 Flow Rate 2 01/08/23 08:00 Discharge Plan Discharge Patient Disposition: Home Condition: Stable Prescriptions: New pregabalin 75 mg Capsule 75 mg PO BID 30 Days Qty: 60 0RF quetiapine 100 mg Tablet 150 mg PO BEDTIME Qty: 30 0RF cyanocobalamin (vitamin B-12) [Vitamin B-12] 1,000 mcg Tablet 500 mcg PO DAILY Qty: 30 0RF fluticasone furoate-vilanterol [Breo Ellipta] 200-25 mcg/dose blister with device 1 inh inhalation Q24H Qty: 60 0RF Continued (DME) pen needle, diabetic [Comfort EZ Pen [place]] 32 gauge x 5/32 needle See Rx Instructions .Route Qty: 100 2RF Rx Instructions: use 3times a day to inject insulin. (DME) pen needle, diabetic [Comfort EZ Pen [place]] 31 gauge x 5/16 needle See Rx Instructions .Route Qty: 100 6RF Rx Instructions: use daily with levemir naloxone 4 mg/actuation spray,non-aerosol 4 mg intranasal Q2M PRN (Reason: opioid overdose) Qty: 2 0RF Rx Instructions: spray 1 dose into ONE nostril; alternate nostrils w each dose until help arrives albuterol sulfate 90 mcg/actuation HFA aerosol inhaler 1 puff inhalation Q6H PRN (Reason: Shortness Of Breath) Qty: 8.5 0RF atorvastatin 80 mg tablet 80 mg PO QAM Qty: 30 3RF cyclobenzaprine 10 mg tablet 10 mg PO TID PRN (Reason: muscle spasm) 30 Days Qty: 90 2RF duloxetine 60 mg capsule,delayed release(DR/EC) 60 mg PO DAILY Qty: 30 3RF Jardiance 25 mg tablet 25 mg PO DAILY Qty: 30 4RF Rx Instructions: 340 b Repatha SureClick 140 mg/mL pen injector 140 mg SUBCUT .d31etrv Qty: 2 5RF levetiracetam 500 mg tablet 500 mg PO BID Qty: 60 3RF losartan 50 mg tablet 50 mg PO DAILY@0800 Qty: 90 3RF oxybutynin chloride 5 mg tablet extended release 24hr 5 mg PO DAILY Qty: 30 3RF pantoprazole 40 mg tablet,delayed release (DR/EC) 40 mg PO QAM Qty: 30 3RF Rybelsus 3 mg tablet See Rx Instructions .ROUTE .COMPLEX Qty: 30 3RF Dose Instruction: TAKE ONE TABLET BY MOUTH EVERY DAY IN THE MORNING Rx Instructions: TAKE ONE TABLET BY MOUTH EVERY DAY IN THE MORNING Brilinta 90 mg tablet 90 mg PO BID@08,21 Qty: 180 4RF Spiriva with HandiHaler 18 mcg capsule, w/inhalation device 1 cap inhalation DAILY Qty: 30 3RF Ed A-Hist DM 4-10-15 mg/5 mL liquid 5 ml PO Q6H PRN (Reason: cold symptoms) Qty: 160 0RF Levemir FlexTouch U-100 Insuln 100 unit/mL (3 mL) insulin pen 35 unit SUBCUT QAM Qty: 15 3RF Rx Instructions: Increase by 5 units x3 days then increase 5 more units (DME) blood-glucose meter Misc See Rx Instructions .Route Qty: 1 0RF Rx Instructions: dailyAs directed (DME) Blood Glucose Test Strip See Rx Instructions .Route Qty: 100 0RF Rx Instructions: tid ac meals (DME) lancets Misc See Rx Instructions .Route Qty: 100 0RF Rx Instructions: 1 tid acetaminophen 325 mg Tablet 650 mg PO Q6H PRN (Reason: Mild/Mod Pain Or Temp >/= 101) Qty: 30 0RF morphine 15 mg tablet 15 - 30 mg PO .Q4-6H MDD 5 tabs PRN (Reason: Pain) triamcinolone acetonide 0.1 % cream 1 applic topical BID PRN (Reason: poison nikki) Zonegran 100 mg capsule 400 mg PO BEDTIME Rx Instructions: watch for rash (sulfa allergic) albuterol sulfate 2.5 mg /3 mL (0.083 %) Solution For Nebulization 2.5 mg INHALATION Q4H PRN (Reason: Shortness Of Breath) nitroglycerin [Nitrostat] 0.4 mg Tablet, Sublingual 0.4 mg SUBLINGUAL Q5M PRN (Reason: Chest Pain) Rx Instructions: do not exceed 3 doses per episode aspirin [Adult Aspirin Regimen] 81 mg tablet,delayed release (DR/EC) 81 mg PO QAM Changed metoprolol succinate 25 mg tablet extended release 24 hr 12.5 mg PO QAM Qty: 30 2RF insulin lispro [Humalog KwikPen Insulin] 100 unit/mL insulin pen See Protocol SUBCUT AC Qty: 15 3RF Protocol: Insulin Corrective High-Dose Regimen Condition: Fingerstick Blood Glucose Dose/Route: Insulin Units Condition: 141-180 mg/dl Dose/Route: 4 units/SQ Condition: 181-220 mg/dl Dose/Route: 6 units/SQ Condition: 221-260 mg/dl Dose/Route: 8 units/SQ Condition: 261-300 mg/dl Dose/Route: 10 units/SQ Condition: 301-350 mg/dl Dose/Route: 12 units/SQ Condition: 351-400 mg/dl Dose/Route: 14 units/SQ Condition: greater than 400 mg/dl Dose/Route: 16 units/SQ Rx Instructions: sliding scale subcutaneously tid isosorbide mononitrate 60 mg tablet extended release 24 hr 30 mg PO BID Qty: 120 3RF furosemide 40 mg tablet 40 mg PO DAILY Qty: 30 0RF Discontinued pregabalin [Lyrica] 150 mg capsule 150 mg PO BID Qty: 60 3RF quetiapine 200 mg tablet 200 mg PO BEDTIME Qty: 30 3RF Discharge Orders: Discharge Order (Routine); Ordered 01/08/23 Ordered By: Cornelius Joyce Other Ambulatory Orders: Pulmonary Function Screen Spirometry Pre Only (Routine) Timeframe: 1 Week Facility: [facility] - Location: [facility] Ordered By: Cornelius Joyce Referrals: Warren Simon MD [Physician] - 7-10 days Laurel Eagle MD [Primary Care Provider] - 1 week (message sent to clinic.) Discharge Diet: Cardiac and Diabetic Discharge Activity: Resume usual activity and Increase activity as tolerated Patient Instructions: Opioid Safety Activity Restrictions/Additional Instructions: Multiple medication changes have been done. Lyrica dose has been decreased to 75 mg twice daily. Dose of Seroquel been changed to 150 mg daily. You are on a new inhaler which is Breo Ellipta. Please take daily. Please follow-up with a primary care provider within next 1 week and with pulmonology within next 2 weeks. Before follow-up with pulmonology you should have a PFT done. You need to be on 35 units of Lantus daily along with insulin sliding scale which has been given to you in detail or as below 3 times a day premeals. 141-180 mg/dl, then 4 units/SQ; If 181-220 mg/dl, then 6 units/SQ; If 221-260 mg/dl, then 8 units/SQ; If 261-300 mg/dl, then 10 units/SQ; If 301-350 mg/dl, then 12 units/SQ; If 351-400 mg/dl, then 14 units/SQ; If greater than 400 mg/dl, then 16 units/SQ Dose of metoprolol has been changed to 12.5 mg daily and Imdur has been changed to 30 mg twice daily. Discharge Attestations Time Spent in Discharge Care*: greater than 30 min Specific Discharge Activities: educating patient, educating and/or supporting family/caregiver, discussing with pcp/other providers, discussing with employment case manager/social workers/dc planners, documenting/other paperwork and evaluating patient/reviewing data Status at Discharge: Cognitive status at discharge: mildly impaired cognition, Behavioral status at discharge: cooperative, Functional status at discharge: uses cane/walker, Overall status at discharge: patient is back to baseline Quality Metrics Clinical Quality Measures [ No reported AMI, CVA or VTE this stay] Coding Level of Care Code 14975 Total time (in minutes) for Discharge: 50 Diagnoses Altered mental status R41.82 Community acquired pneumonia J18.9 Hypotension I95.9 Acute exacerbation of chronic obstructive pulmonary disease (COPD) J44.1 Essential hypertension I10 Generalized epilepsy G40.309 CAD (coronary artery disease) I25.10 Coronary Disease-Associated Artery/Lesion type: [place] artery [place] vs. transplanted heart: [place] heart Associated angina: without angina Depression F32.A
[2023-01-11 20:30] LABS: Aspergillus AG,EIA,Serum NOT DETECTED; Aspergillus Galactomannan Inde <0.50
[2023-01-12 13:24] LABS: Zonisamide (Zonegran) 19.7 mcg/mL (10.0-40.0)
== END 2023-01-08 13:04 | disposition home or self-care (01) | DRG 71 ==
LOC: ER 20:55 → MEDSURG 21:16
PROVIDERS: Admitting Provider Internal Medicine; Emergency Provider Family Medicine; PCP Family Medicine; Visit Provider Student in an Organized Health Care Education/Training Program
DX: G93.40 Encephalopathy, unspecified (principal); J44.1 Chronic obstructive pulmonary disease with (acute) exacerbation; J67.9 Hypersensitivity pneumonitis due to unspecified organic dust; J96.11 Chronic respiratory failure with hypoxia; E86.0 Dehydration; E11.65 Type 2 diabetes mellitus with hyperglycemia; D72.10 Eosinophilia, unspecified; Z79.51 Long term (current) use of inhaled steroids; Z79.84 Long term (current) use of oral hypoglycemic drugs; Z79.02 Long term (current) use of antithrombotics/antiplatelets; Z79.4 Long term (current) use of insulin; Z79.82 Long term (current) use of aspirin; Z86.73 Personal history of transient ischemic attack (TIA), and cerebral infarction without residual deficits; E78.5 Hyperlipidemia, unspecified; I10 Essential (primary) hypertension; F32.A Depression, unspecified; E53.8 Deficiency of other specified B group vitamins; I25.10 Atherosclerotic heart disease of native coronary artery without angina pectoris; G40.409 Other generalized epilepsy and epileptic syndromes, not intractable, without status epilepticus; I95.9 Hypotension, unspecified; F17.210 Nicotine dependence, cigarettes, uncomplicated; Z98.1 Arthrodesis status; Z87.440 Personal history of urinary (tract) infections; Z87.01 Personal history of pneumonia (recurrent); E66.9 Obesity, unspecified; Z68.34 Body mass index [BMI] 34.0-34.9, adult; Z96.652 Presence of left artificial knee joint
CPT/HCPCS: 36415; 36416; 70450; 71045; 71250; 73100; 80053; 80177; 80202; 80203; 80306; 81003; 82607; 82746; 82962; 83036; 83605; 83880; 84145; 84443; 85025; 85610; 85651; 86403; 87040; 87305; 87449; 87486; 87581; 87633; 87641; 94640; 96365; 96372; 99285; J1815; J1956; J2185; J3370; J3420; J3480; J7030; J7626

== ENCOUNTER 2023-07-04 22:01 | Inpatient (IN) | payer MEDICARE, MEDICAID, SELFPAY ==
[2023-07-04 22:14] VITALS: BP 141/82; PULSE 101; RESP 18; TEMP 38.3; O2SAT 99; BMI 29.9
--- NOTE | 2023-07-04 22:31 | W.ED.EXTPRO ---
HPI - Extremity Problem General: Chief complaint: Extremity Problem,Nontraumatic Stated complaint: right leg swelling Time Seen by Provider: 07/04/23 22:31 History of Present Illness: 8-year-old female comes in today with complaints of increased redness and pain to the right lower extremity. Patient reports that she has recently moved back from [facility] over the last 2 weeks. 2 weeks ago she was in the hospital in [place] for a infection in the right lower extremity. Patient was discharged on linezolid after improvement of the infection. Patient states that she has some osteomyelitis in the foot. Patient has a history of coronary artery disease and diabetes mellitus. Patient was prompted to come in tonight due to not feeling well, increased pain in the foot, and some increasing redness. Review of Systems General: Reports: 10 or more systems reviewed and unremarkable except in HPI and below Skin/Breast: Reports: erythema PFSH ED PFSH: Medical History (HFpEF) heart failure with preserved ejection fraction Abnormal stress test Acute alteration in mental status Acute and chronic respiratory failure with hypoxia Acute encephalopathy Acute exacerbation of CHF (congestive heart failure) Acute exacerbation of chronic obstructive pulmonary disease (COPD) Acute hypoxemic respiratory failure Acute respiratory failure with hypoxia Anemia CAD (coronary artery disease) Candidiasis of vagina Carpal tunnel syndrome, right Cellulitis of gluteal region Chest pain Chronic knee pain Chronic left-sided low back pain Chronic obstructive pulmonary disease, unspecified Chronic pain of left knee Chronic, continuous use of opioids Compression fracture of L2 lumbar vertebra COPD (chronic obstructive pulmonary disease) COPD exacerbation Coronary artery disease due to type 2 diabetes mellitus Current every day smoker CVA (cerebral vascular accident) Diabetes Diabetes type 2, uncontrolled Diabetic foot ulcer Dyslipidemia Dyspnea Elevated troponin Encounter for long-term opiate analgesic use Essential hypertension Exposure to COVID-19 virus Fibromyalgia, primary History of CVA (cerebrovascular accident) History of hypoglycemic coma History of stroke Hoarseness of voice Hyperlipidemia, mixed Hypersensitivity pneumonitis Hypoxemia Infection of total left knee replacement Insomnia Intervertebral disc disorder of lumbar region with myelopathy Leukocytosis Low back pain radiating to both legs Lumbosacral spondylosis without myelopathy Needs flu shot Neuropathy NSTEMI (non-ST elevated myocardial infarction) Thought to be secondary to plaque rupture. Angiogram July 04 no flow-limiting lesions, or restenosis of previous stent from April 2020 Numbness and tingling in both hands Obesity (BMI 35.0-39.9 without comorbidity) Opioid contract exists Osteoarthritis of left knee Osteoarthritis of spine at multiple levels Pericardial effusion Peripheral sensory neuropathy due to type 2 diabetes mellitus Pneumonia Pneumonia Pressure ulcer Prosthetic joint infection Right arm weakness Right hip pain Right wrist deformity Sacral pressure ulcer Seizure Seizure disorder Seizures Sepsis Sepsis Septic arthritis of knee, left Stenosis of left internal carotid artery with cerebral infarction Syncope Type 2 diabetes mellitus with diabetic autonomic (poly)neuropathy Unstable angina Urinary incontinence Urinary tract infection UTI (urinary tract infection) Vitamin D deficiency Surgical History History of arthroscopic surgery of elbow BILATERAL History of coronary angiogram Angiogram April 2020 with 90% circumflex lesion, drug-eluting stent placed by Dr. Jerome S/p bilateral carpal tunnel release S/P hysterectomy S/P knee surgery RIGHT S/P lumbar fusion DR. Shreya ZAYAS IN [place], [place] L4-L5, L5-S1 Status post left knee replacement Status post lumbar laminectomy Family History Other CAD (coronary artery disease) Cancer Diabetes Social History Smoking and tobacco status: current every day smoker cigarettes Packs smoked per day: 0.5 Years cigarettes smoked: 10 [ Other cigarette details: PER PATIENT REPORT] Smoking risk assessment/counseling performed?: Yes Alcohol intake: former Desire information about alcohol rehabilitation?: No Counseling given: No Substance/Drug Use: never Desire information about substance/drug rehabilitation?: No Counseling given: No Caregiver/support person: No Lives independently: Yes Household members: family and other Details: son Housing: Manufactured/Mobile home Marital status: Unknown Marital status details: She and son state she is not service: No Current occupational status: unemployed Pets and animals: Yes Do you think of yourself as: Straight/Heterosexual Current gender identity: Female Physical Exam Const: COMMON NORMALS: alert HENMT: COMMON NORMALS: normocephalic HEAD & SCALP: normocephalic Neck/C-Spine: COMMON NORMALS: full ROM Resp: COMMON NORMALS: normal respiratory effort and clear to auscultation bilaterally AUSCULTATION: clear to auscultation bilaterally Cardio: COMMON NORMALS: regular rate and regular rhythm RATE: regular rate RHYTHM: regular rhythm Extremity: RIGHT LOWER EXTREMITY: Yes lower leg (Redness extending from mid leg down to the foot) OTHER: Dry ulcers are noted to the great toe and little toe of the right foot Neuro: SENSORIUM/ORIENTATION: Yes alert Skin: COMMON NORMALS: turgor normal GENERAL SKIN EXAM: turgor normal Course Vital Signs: Vital signs: Vital Signs Temperature 100.9 F H 07/04/23 22:14 Pulse Rate 108 H 07/04/23 22:49 Respiratory Rate 20 H 07/04/23 22:49 Blood Pressure 141/82 07/04/23 22:14 Pulse Oximetry 97 07/04/23 22:49 Oxygen Delivery Me thod Nasal Cannula 07/04/23 22:49 Oxygen Flow Rate 2 07/04/23 22:49 MDM - Extremity (Nontraumatic) Medical Decision Making 58-year-old female comes in today for complaints of increasing pain and redness to the right lower extremity. Patient has a history of osteomyelitis. Patient was being treated in [facility] approximately 2 weeks ago for the same infection. Patient was discharged in the hospital on linezolid. Patient comes in tonight due to increased pain and redness to the extremity. On arrival patient did have a temperature of 100.9, pulse was 101. Differential diagnosis includes but not limited to sepsis, osteomyelitis, cellulitis, wound infection. Sed rate is 45, CMP was unremarkable. Patient had a temperature of 100.9. Patient has noticeable cellulitis to the right lower extremity and probable osteomyelitis. Due to patient's history of diabetes and recurrent osteomyelitis we will go ahead admit to the hospitalist services for continued treatment. Discussed with with Dr. Gresham who agreed to plan. Patient had a CT of the lower extremity ordered. Vancomycin was started in the ER. Lab Data 07/04/23 23:01 07/04/23 23:01 Radiology Impressions Foot X-Ray 07/04/23 22:41 IMPRESSION: Negative for osteomyelitis. Tibia/Fibula X-Ray 07/04/23 22:41 IMPRESSION: Negative for osteomyelitis. Venous Duplex 07/04/23 22:41 IMPRESSION: No evidence of deep vein thrombosis. Laboratory Results WBC 16.96 10^3/uL (3.29-11.43) H 07/04/23 23:01 RBC 4.91 10^6/uL (3.85-5.65) 07/04/23 23: Hgb 13.40 g/dL (11.27-16.99) 07/04/23 23: Hct 40.7 % (36-47) 07/04/23: MCV 82.9 fl (85-98) L 07/04/23 23: MCH 27.3 pg (27-33) 07/04/23: MCHC 32.9 g/dL (30-55) 07/04/23: RDW 16.0 % (12.1-15.1) H 07/04/23 23: Plt Count 498 10^3/cmm (157-399) H 07/04/23: MPV 8.6 fL (7.4-10.4) 07/04/23 23: Neut % (Auto) 62.3 % 07/04/23: Lymph % (Auto) 25.5 % 07/04/23: Wright % (Auto) 6.1 % 07/04/23: Eos % (Auto) 5.0 % 07/04/23 23: Baso % (Auto) 0.7 % 07/04/23 23: Neut # (Auto) 10.57 10^3/uL (1.8-7.7) H 07/04/23 23: Lymph # (Auto) 4.3 10^3/uL (0.8-4.8) 07/04/23 23: Wright # (Auto) 1.0 10^3/uL (0.2-0.9) H 07/04/23 23: Eos # (Auto) 0.8 10^3/uL (0.0-0.8) 07/04/23 23: Baso # (Auto) 0.1 10^3/uL (0.0-0.1) 07/04/23: Nucleated RBC % (auto) 0 % 07/04/23 23: Nucleated RBCs # 0.0 /100WBC 07/04/23 23: ESR 45 mm/hr (0-15) H 07/04/23 23: PT 12.90 SECONDS (12.1-14.9) 07/04/23 23: INR 0.95 (0.8-1.2) 07/04/23 23: APTT 33.9 SECONDS (23.9-36.7) 07/04/23 23: D-Dimer 0.70 ug/mLFEU (0-0.59) H 07/04/23 23:01 Sodium 135 mmol/L (136-145) L 07/04/23 23: Potassium 4.5 mmol/L (3.5-5.1) 07/04/23 23: Chloride 100 mmol/L (98-107) 07/04/23 23: Carbon Dioxide 23 mmol/L (22-29) 07/04/23 23: Anion Gap 16.5 (5-19) 07/04/23 23: BUN 9 mg/dL (6-20) 07/04/23 23: Creatinine 0.7 mg/dL (0.5-0.9) 07/04/23 23: GFR Calculation 86.6 mL/min (90-130) L 07/04/23: Glucose 161 mg/dL (65-115) H 07/04/23 23: Calculated Osmolality 282 mOsm/kg (285-295) L 07/04/23 23: Lactic Acid 1.9 mmol/L (0.5-2.2) 07/04/23: Calcium 9.4 mg/dL (8.5-10.5) 07/04/23 23: Total Bilirubin 0.2 mg/dL (0.15-1.2) 07/04/23 23: AST 19 U/L (0-32) 07/04/23 23: ALT 12 U/L (0-33) 07/04/23 23: Alkaline Phosphatase 95 U/L (35-105) 07/04/23 23: C-Reactive Protein 48.9 mg/L (0.0-4.9) H 07/04/23 23: Total Protein 7.5 g/dL (6.6-8.7) 07/04/23 23: Albumin 3.9 g/dL (3.5-5.2) 07/04/23 23: Globulin 3.6 g/dL (1.3-4.6) 07/04/23 23:01 Procalcitonin 0.05 ng/mL (0-0.5) 07/04/23 23:01 Urine Color Yellow (Yellow) 07/04/23 23:15 Urine Appearance Sl hazy (CLEAR) A 07/04/23 23:15 Urine pH 7 (5-7) 07/04/23 23:15 Ur Specific Damon 1.010 (1.005-1.030) 07/04/23 23:15 Urine Protein Neg (Negative) 07/04/23 23:15 Urine Glucose (UA) 4+ (Normal) H 07/04/23 23:15 Urine Ketones Negative (Negative) 07/04/23 23:15 Urine Blood Neg (Negative) 07/04/23 23:15 Urine Nitrate Negative (Negative) 07/04/23 23:15 Urine Bilirubin Neg (Negative) 07/04/23 23:15 Urine Urobilinogen Norm mg/dL (Negative) 07/04/23 23:15 Ur Leukocyte Esterase Negative (Negative) 07/04/23 23:15 Urine RBC 0-4 /hpf (0-2) H 07/04/23 23:15 Urine WBC 0-4 /hpf (0-5) H 07/04/23 23:15 Ur Squamous Epith Cells 0-4 /hpf (0-5) H 07/04/23 23:15 Amorphous Sediment Not Reportable 07/04/23 23:15 Urine Bacteria Trace /hpf (NONE) 07/04/23 23:15 All radiology interpretation(s) finalized by discharge Discharge Plan Discharge Patient Disposition: Admitted As Inpatient Clinical Impression: Cellulitis Qualifiers: Site of cellulitis: extremity Site of cellulitis of extremity: lower extremity Laterality: right Qualified Code(s): L03.115 - Cellulitis of right lower limb Condition: Stable Coding Level of Care Code ED [employer]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
--- NOTE | 2023-07-04 22:41 | XRR_ITS ---
PROCEDURE INFORMATION: Exam: XR Right Foot Exam date and time: 07/04/2023 11:06 PM Age: 58 years old Clinical indication: Swelling, leg or foot; Additional info: Osteomyelitis TECHNIQUE: Imaging protocol: Radiologic exam of the right foot. Views: 3 or more views. COMPARISON: CR (LOW EXM, ) 07/04/2023 11:02 PM FINDINGS: Bones/joints: Unremarkable. Soft tissues: Diffuse soft tissue edema. Negative for gas. XR/XR foot RT min 3V* [id number] IMPRESSION: Negative for osteomyelitis.
--- NOTE | 2023-07-04 22:41 | XRR_ITS ---
PROCEDURE INFORMATION: Exam: XR Right Tibia and Fibula Exam date and time: 07/04/2023 11:02 PM Age: 58 years old Clinical indication: Swelling, leg or foot; Prior surgery; Surgery date: 6+ months; Surgery type: RT knee; Additional info: Osteomyelitis TECHNIQUE: Imaging protocol: Radiologic exam of the right tibia and fibula. Views: 2 views. COMPARISON: US soft tissue/extremity [id number] 08/14/2018 2:37 PM FINDINGS: Bones/joints: Right knee total arthroplasty alignment is unremarkable. No lytic bone lesion. Negative for periosteal reaction. Negative fracture. Soft tissues: Mild diffuse soft tissue edema. Negative for gas. XR/XR tibia fibula RT 2V [id number] IMPRESSION: Negative for osteomyelitis.
--- NOTE | 2023-07-04 22:41 | USR_ITS ---
PROCEDURE INFORMATION: Exam: US Duplex Right Lower Extremity Veins, Limited Exam date and time: 07/04/2023 11:19 PM Age: 58 years old Clinical indication: Swelling (edema) of limb; Lower extremity, right; Prior surgery; Surgery date: 6+ months; Surgery type: RT total knee replacement in remote past; Patient HX: Dx chronic cellulitis RT calf x 3 months. Taking antibiotics x 3 months. Was hospitalized for about a month during this 3 month period. No history of dvt per patient. ; Additional info: Redness swelling TECHNIQUE: Imaging protocol: Real-time duplex ultrasound of the right extremity with 2-D pierce scale, color Doppler flow and spectral waveform analysis including responses to compression and other maneuvers (when performed) with image documentation. Limited exam was focused on the right lower extremity veins. COMPARISON: US soft tissue/extremity [id number] 08/14/2018 2:37 PM FINDINGS: Right deep veins: Unremarkable. The common femoral, femoral, proximal profunda femoral and popliteal veins are patent without thrombus. Normal Doppler waveforms. Normal compressibility and/or augmentation response. Superficial veins: Unremarkable. Saphenofemoral junction is patent without thrombus. Soft tissues: Soft tissue [place]. US/[place] [id number] IMPRESSION: No evidence of deep vein thrombosis.
[2023-07-04 22:49] VITALS: PULSE 108; RESP 20; O2SAT 97
[2023-07-04 23:13] LABS: Basophils # 0.1 10^3/uL (0.0-0.1); Basophils % 0.7 %; Eosinophils # 0.8 10^3/uL (0.0-0.8); Hematocrit 40.7 % (36-47); Lymphocytes # 4.3 10^3/uL (0.8-4.8); Lymphocytes % 25.5 %; Mean Corpuscular HGB Conc 32.9 g/dL (30-55); Mean Corpuscular Hemoglobin 27.3 pg (27-33); Mean Corpuscular Volume 82.9 fl (85-98); Mean Platelet Volume 8.6 fL (7.4-10.4); Monocytes % 6.1 %; Neutrophils # 10.57 10^3/uL (1.8-7.7); Neutrophils % 62.3 %; Nucleated Red Blood Cells % 0 %; Platelet Count 498 10^3/cmm (157-399); Red Blood Count 4.91 10^6/uL (3.85-5.65); White Blood Count 16.96 10^3/uL (3.29-11.43)
[2023-07-04 23:24] LABS: INR 0.95 (0.8-1.2)
[2023-07-04 23:25] LABS: Partial Thromboplastin Time 33.9 SECONDS (23.9-36.7)
[2023-07-04 23:28] LABS: Bilirubin Urine Neg (Negative); Blood Urine Neg (Negative); Glucose Urine UA 4+ (Normal); Ketones Urine Negative (Negative); Leukocyte Esterase Urine Negative (Negative); Nitrate Urine Negative (Negative); Protein Urine Neg (Negative); Urine Appearance SL Hazy (CLEAR); Urine Color Yellow (Yellow); Urobilinogen Urine Norm (Negative); pH Urine 7 (5-7)
[2023-07-04 23:29] LABS: Add Urine Microscopic? YES; Bacteria Urine TRACE /hpf; RBC Urine 0-4 /hpf (0-2); Squamous Epithelial Cell Urine 0-4 /hpf (0-5); WBC Urine 0-4 /hpf (0-5)
[2023-07-04 23:30] LABS: Alanine Aminotransferase 12 U/L (0-33); Albumin Level 3.9 g/dL (3.5-5.2); Alkaline Phosphatase 95 U/L (35-105); Anion Gap 16.5 (5-19); Aspartate Amino Transferase 19 U/L (0-32); Blood Urea Nitrogen 9 mg/dL (6-20); C Reactive Protein 48.9 mg/L (0.0-4.9); Calcium 9.4 mg/dL (8.5-10.5); Carbon Dioxide 23 mmol/L (22-29); Chloride 100 mmol/L (98-107); Globulin 3.6 g/dL (1.3-4.6); Glomerular Filtration Rate 86.6 mL/min (90-130); Glucose 161 mg/dL (65-115); Osmolality Calculated 282 mOsm/kg (285-295); Potassium 4.5 mmol/L (3.5-5.1); Sodium 135 mmol/L (136-145); Total Bilirubin 0.2 mg/dL (0.15-1.2); Total Protein 7.5 g/dL (6.6-8.7)
[2023-07-04 23:31] LABS: Add Urine Culture? No
[2023-07-04 23:31] LABS: Lactic Sepsis W/Reflex 1.9 mmol/L (0.5-2.2)
[2023-07-04 23:36] LABS: Erythrocyte Sedimentation Rate 45 mm/hr (0-15)
[2023-07-04 23:37] LABS: Procalcitonin 0.05 ng/mL (0-0.5)
--- NOTE | 2023-07-04 23:44 | CTR_ITS ---
PROCEDURE INFORMATION: Exam: CT Right Lower Extremity Without Contrast; Lower Leg Exam date and time: 07/04/2023 11:50 PM Age: 58 years old Clinical indication: Cellulitis; Prior surgery; Surgery date: 6+ months; Surgery type: Knee replacement; Patient HX: Ulcer right toe, redness from toes to mid lower leg; Additional info: Infection TECHNIQUE: Imaging protocol: CT of the right lower extremity without contrast was performed. Exam focused on the lower leg. Radiation optimization: All CT scans at this facility use at least one of these dose optimization techniques: automated exposure control; mA and/or kV adjustment per patient size (includes targeted exams where dose is matched to clinical indication); or iterative reconstruction. REPORTING DATA: Count of CT and Cardiac NM exams in prior 12 months: This patient has received 3 known CTs and 0 known cardiac nuclear medicine studies in the 12 months prior to the current study. COMPARISON: CR (LOW EXM, ) 07/04/2023 11:02 PM RADIATION DOSE METRICS: Total DLP (mGy-cm): 643.61 FINDINGS: Bones/joints: Unremarkable. No acute fracture or dislocation. No lytic lesion. Unremarkable right knee joint arthroplasty alignment. Soft tissues: Diffuse superficial soft tissue edema. Negative for gas. Negative for foreign body. Negative for abscess. Superficial ulcer of the medial great toe. CT/CT lower leg RT w con [id number] IMPRESSION: 1. Right lower extremity soft tissue edema which may represent cellulitis. 2. Negative for abscess. 3. Negative for osteomyelitis.
[2023-07-04 23:55] LABS: Slide Review Slide Review Perform
[2023-07-04] MEDS: HYDROmorphone 1 mg/mL INJ 1 mL 0.5 MG IVP (23:55)
[2023-07-05] VITALS (15 sets, daily range): BP systolic 96–162; BP diastolic 63–94; PULSE 89–104; RESP 15–22; TEMP 36.4–37.1; O2SAT 90–97
[2023-07-05] MEDS: iohexol 350 mg/mL 500 mL Btl (per mL) IV (00:06)
[2023-07-05] MEDS: vancomycin 1,000 MG in sodium chloride 0.9% 250 ML 250 MG IV (00:34)
[2023-07-05 02:31] LABS: Adenovirus Not Detected (NOT DETECT); Chlamydia Pneumoniae Not Detected (NOT DETECT); Coronavirus 229E,HKU1,NL63,OC4 Not Detected (NOT DETECT); Human Metapneumovirus Not Detected (NOT DETECT); Human Rhinovirus/Enterovirus Not Detected (NOT DETECT); Influenza A Not Detected (NOT DETECT); Influenza A H1 Not Detected (NOT DETECT); Influenza A H1-2009 Not Detected (NOT DETECT); Influenza A H3 Not Detected (NOT DETECT); Influenza B Not Detected (NOT DETECT); Mycoplasma Pneumoniae Not Detected (NOT DETECT); Parainfluenza Virus Type 1 Not Detected (NOT DETECT); Parainfluenza Virus Type 2 Not Detected (NOT DETECT); Parainfluenza Virus Type 3 Not Detected (NOT DETECT); Parainfluenza Virus Type 4 Not Detected (NOT DETECT); Respiratory Syncytial Virus A Not Detected (NOT DETECT); Respiratory Syncytial Virus B Not Detected (NOT DETECT); SARS-COV-2 Not Detected (NOT DETECT)
--- NOTE | 2023-07-05 04:55 | P.HP_ITS ---
Providers/Chief Complaint Admitting Physician: Elke Gresham MD Primary Care Provider: Laurel Eagle MD Chief Complaint: right leg swelling History of Present Illness Mayra Ascencio is a 58 year old female with history of seizures, baseline right- sided deficits from prior CVA, COPD, HFpEF, CAD, dyslipidemia, fibromyalgia, NSTEMI recurrent MRSA pneumonias, septic arthritis of left knee s/p removal of all hardware, currently with spacres sinsce 2020, hypertension, presented with right lower extremity swelling. Patient states that her symptoms for started about 2 months ago when she developed cellulitis of the entire leg on the right side. At onset of symptoms it appears the erythema was extending up into her thighs. She believes all of this started after a diabetic ulcer over her great toe. She has recently moved back into the [facility], left in [facility] for a few months. She was admitted to [facility] in the past month and was diagnosed with osteomyelitis of the foot and was recommended amputation of the lateral 3 digits. It appears she did not eventually undergo any surgeries. He states she had a CT, an MRI and a bone scan performed on this recent visit. She received inpatient treatment with IV antibiotics, which was transitioned to oral linezolid at the time of discharge. She comes into the emergency room today as symptoms have not completely resolved. There continues to be erythema involving her right foot, right ankle and the lower part of the right calf. She has developed fever Kendaz[place] fever up to 101.5 Fahrenheit at home. She has been on treatment with oral linezolid for the past 3 weeks but does not think this is making a difference. States that her foot never quite returned back to normal in spite of treatment with IV antibiotics. Review of Systems General: Reports: 10 or more systems reviewed and unremarkable except in HPI and below Const: Denies: fever(s), chills or body aches Eyes: Denies: change in vision, blurry vision or photophobia ENMT: Reports: hoarseness; Denies: throat pain, enlarged tonsils, odynophagia or nasal congestion Card: Denies: chest pain, palpitations, irregular heart rhythm, edema, swelling of feet/ankles, lightheadedness, pre-syncope, dyspnea on exertion or orthopnea Resp: Denies: dyspnea, productive cough, non-productive cough, wheezing, stridor, pain on inspiration, change in phlegm color, hemoptysis or chest congestion GI: Denies: abdominal pain, nausea, vomiting, hematemesis, coffee ground emesis, dysphagia, heartburn, diarrhea, constipation, GI cramping, change in stool character, hematochezia or melena : Denies: flank pain, difficulty voiding, dysuria, urinary frequency, urinary urgency, urinary hesitancy or hematuria Musc: Denies: neck pain, back pain, extremity pain, joint swelling, joint warmth or deformity Neuro: Denies: headache(s), numbness in extremities, weakness in extremities, sensory changes, difficulty walking, frequent falls, dizziness, vertigo, behavioral changes, Slurred speech present or seizure-like activity Psych: Denies: anxiety, depression, suicidal ideation or homicidal ideation Endo: Denies: polyuria, polydipsia, tired all the time, cold intolerance or hot flashes Xavier/Lymph: Denies: easy bruising or easy bleeding Medications/Allergies Home Medications Medication Instructions Recorded Confirmed Last Taken Type acetaminophen 325 mg tablet 650 mg PO Q6H PRN Mild/Mod Pain Or 10/16/20 01/11/23 04/21/21 Rx Temp >/= 101 #30 tabs pen needle, diabetic 31 gauge x #100 ea 03/05/22 01/11/23 Unknown Rx 5/16 (Comfort EZ Pen Banquete) pen needle, diabetic 32 gauge x #100 ea 03/05/22 01/11/23 Unknown Rx 5/32 (Comfort EZ Pen Banquete) naloxone 4 mg/actuation nasal spray 4 mg intranasal Q2M PRN opioid 03/11/22 01/11/23 Unknown Rx overdose #2 ea albuterol sulfate 2.5 mg/3 mL 2.5 mg inhalation Q4H PRN 05/17/22 01/11/23 Unknown History (0.083 %) solution for nebulization Shortness Of Breath aspirin 81 mg tablet,delayed 81 mg PO QAM 05/17/22 01/11/23 01/05/23 History release (Adult Aspirin Regimen) nitroglycerin 0.4 mg sublingual 0.4 mg sublingual Q5M PRN Chest 05/17/22 01/11/23 Unknown History tablet (Nitrostat) Pain morphine 15 mg immediate release 15 - 30 mg PO .Q4-6H PRN Pain 11/02/22 03/28/23 Unknown History tablet triamcinolone acetonide 0.1 % 1 applic topical BID PRN poison nikki 08/18/22 01/11/23 Unknown History topical cream chlorpheniramine 4 5 ml PO Q6H PRN cold symptoms #160 12/13/22 01/11/23 Unknown Rx mg-phenylephrine 10 mg-DM 15 mg/5 mL mL oral liquid (Ed A-Hist DM) albuterol sulfate 90 mcg/actuation 1 puff inhalation Q6H PRN 12/20/22 01/11/23 Unknown Rx aerosol inhaler Shortness Of Breath #8.5 grams atorvastatin 80 mg tablet 80 mg PO QAM #30 tabs 12/20/22 01/11/23 01/04/23 Rx cyclobenzaprine 10 mg tablet 10 mg PO TID PRN muscle spasm 30 12/20/22 01/11/23 Unknown Rx days #90 tabs duloxetine 60 mg capsule,delayed 60 mg PO DAILY #30 caps 12/20/22 01/11/23 01/05/23 Rx release empagliflozin 25 mg tablet 25 mg PO DAILY #30 tabs 12/20/22 01/11/23 01/05/23 Rx (Jardiance) evolocumab 140 mg/mL subcutaneous 140 mg SUBCUT .j77tads #2 mL 12/20/22 01/11/23 Unknown Rx pen injector (Josefa Hernandez) levetiracetam 500 mg tablet 500 mg PO BID #60 tabs 12/20/22 01/11/23 01/05/23 Rx losartan 50 mg tablet 50 mg PO DAILY@0800 #90 tabs 12/20/22 01/11/23 01/05/23 Rx oxybutynin chloride 5 mg 5 mg PO DAILY #30 tabs 12/20/22 01/11/23 01/05/23 Rx tablet,extended release 24 hr pantoprazole 40 mg tablet,delayed 40 mg PO QAM #30 tabs 12/20/22 01/11/23 01/05/23 Rx release semaglutide 3 mg tablet (Rybelsus) See Rx Instructions .Route 12/20/22 01/11/23 01/05/23 Rx .COMPLEX #30 tabs ticagrelor 90 mg tablet (Brilinta) 90 mg PO BID@08,21 #180 tabs 12/20/22 01/11/23 01/05/23 Rx tiotropium bromide 18 mcg capsule 1 cap inhalation DAILY #30 12/20/22 01/11/23 01/05/23 Rx with inhalation device (Spiriva inhalations with HandiHaler) insulin detemir U-100 100 unit/mL 35 unit (0.35 mL) SUBCUT QAM #15 mL 12/23/22 01/11/23 01/05/23 Rx (3 mL) subcutaneous pen (Levemir FlexTouch U-100 Insulin) blood sugar diagnostic (Blood #100 ea 12/27/22 01/11/23 Unknown Rx Glucose Test strips) blood-glucose meter #1 ea 12/27/22 01/11/23 Unknown Rx lancets #100 ea 12/27/22 01/11/23 Unknown Rx zonisamide 100 mg capsule 400 mg PO BEDTIME 01/05/23 01/11/23 01/04/23 History (Zonegran) cyanocobalamin (vitamin B-12) 500 mcg PO DAILY #30 tabs 01/08/23 01/11/23 Unknown Rx 1,000 mcg tablet (Vitamin B-12) fluticasone furoate 200 1 inh inhalation Q24H #60 ea 01/08/23 01/11/23 Unknown Rx mcg-vilanterol 25 mcg/dose inhalation powder (Breo Ellipta) furosemide 40 mg tablet 40 mg PO DAILY #30 tabs 01/08/23 01/11/23 01/05/23 Rx insulin lispro 100 unit/mL See Protocol SUBCUT AC #15 mL 01/08/23 01/11/23 Unknown Rx subcutaneous pen (Humalog KwikPen (U-100) Insulin) isosorbide mononitrate 60 mg 30 mg PO BID #120 tabs 01/08/23 01/11/23 01/05/23 Rx tablet,extended release 24 hr metoprolol succinate 25 mg 12.5 mg PO QAM #30 tabs 01/08/23 01/11/23 01/05/23 Rx tablet,extended release 24 hr quetiapine 100 mg tablet 150 mg PO BEDTIME #30 tabs 01/08/23 01/11/23 Unknown Rx Allergies Allergy/AdvReac Type Severity Reaction Status Date / Time fentanyl Allergy Unknown ALGY-Difficulty Verified 07/04/23 22:24 Breathing adhesive Allergy Unknown Verified 07/04/23 22:24 clindamycin Allergy ADR-Itching Verified 07/04/23 22:24 codeine Allergy Unknown Verified 07/04/23 22:24 hydrocodone Allergy Unknown Verified 07/04/23 22:24 latex Allergy ALGY-Swell Verified 07/04/23 22:24 Lip/Tongue/Throat naproxen [From Naprosyn] Allergy Unknown Verified 07/04/23 22:24 nut - unspecified Allergy ALGY-Anaphy Verified 07/04/23 22:24 laxis oxycodone [From Roxicodone] Allergy ADR-Muscle Verified 07/04/23 22:24 Pain Penicillins Allergy Unknown Verified 07/04/23 22:24 PFSH Acute PFSH: Medical History (HFpEF) heart failure with preserved ejection fraction Abnormal stress test Acute alteration in mental status Acute and chronic respiratory failure with hypoxia Acute encephalopathy Acute exacerbation of CHF (congestive heart failure) Acute exacerbation of chronic obstructive pulmonary disease (COPD) Acute hypoxemic respiratory failure Acute respiratory failure with hypoxia Anemia CAD (coronary artery disease) Candidiasis of vagina Carpal tunnel syndrome, right Cellulitis of gluteal region Chest pain Chronic knee pain Chronic left-sided low back pain Chronic obstructive pulmonary disease, unspecified Chronic pain of left knee Chronic, continuous use of opioids Compression fracture of L2 lumbar vertebra COPD (chronic obstructive pulmonary disease) COPD exacerbation Coronary artery disease due to type 2 diabetes mellitus Current every day smoker CVA (cerebral vascular accident) Diabetes Diabetes type 2, uncontrolled Diabetic foot ulcer Dyslipidemia Dyspnea Elevated troponin Encounter for long-term opiate analgesic use Essential hypertension Exposure to COVID-19 virus Fibromyalgia, primary History of CVA (cerebrovascular accident) History of hypoglycemic coma History of stroke Hoarseness of voice Hyperlipidemia, mixed Hypersensitivity pneumonitis Hypoxemia Infection of total left knee replacement Insomnia Intervertebral disc disorder of lumbar region with myelopathy Leukocytosis Low back pain radiating to both legs Lumbosacral spondylosis without myelopathy Needs flu shot Neuropathy NSTEMI (non-ST elevated myocardial infarction) Thought to be secondary to plaque rupture. Angiogram July 04 no flow- limiting lesions, or restenosis of previous stent from April 2020 Numbness and tingling in both hands Obesity (BMI 35.0-39.9 without comorbidity) Opioid contract exists Osteoarthritis of left knee Osteoarthritis of spine at multiple levels Pericardial effusion Peripheral sensory neuropathy due to type 2 diabetes mellitus Pneumonia Pneumonia Pressure ulcer Prosthetic joint infection Right arm weakness Right hip pain Right wrist deformity Sacral pressure ulcer Seizure Seizure disorder Seizures Sepsis Sepsis Septic arthritis of knee, left Stenosis of left internal carotid artery with cerebral infarction Syncope Type 2 diabetes mellitus with diabetic autonomic (poly)neuropathy Unstable angina Urinary incontinence Urinary tract infection UTI (urinary tract infection) Vitamin D deficiency Surgical History History of arthroscopic surgery of elbow BILATERAL History of coronary angiogram Angiogram April 2020 with 90% circumflex lesion, drug-eluting stent placed by Dr. Jerome S/p bilateral carpal tunnel release S/P hysterectomy S/P knee surgery RIGHT S/P lumbar fusion DR. Shreya ZAYAS IN [place], [place] L4-L5, L5-S1 Status post left knee replacement Status post lumbar laminectomy Family History Other CAD (coronary artery disease) Cancer Diabetes Social History Smoking and tobacco status: current every day smoker cigarettes Packs smoked per day: 0.5 Years cigarettes smoked: 10 [ Other cigarette details: PER PATIENT REPORT] Smoking risk assessment/counseling performed?: Yes Alcohol intake: former Desire information about alcohol rehabilitation?: No Counseling given: No Substance/Drug Use: never Desire information about substance/drug rehabilitation?: No Counseling given: No Caregiver/support person: No Lives independently: Yes Household members: family and other Details: son Housing: Manufactured/Mobile home Marital status: Unknown Marital status details: She and son state she is not service: No Current occupational status: unemployed Pets and animals: Yes Do you think of yourself as: Straight/Heterosexual Current gender identity: Female Vitals/I&O/Wt Last Vital Signs Temp 100.9 F H 07/04/23 22:14 Pulse 104 H 07/05/23 00:35 Resp 22 H 07/05/23 00:35 BP 162/94 07/05/23 00:35 Pulse Ox 97 07/04/23 22:49 O2 Del Method Room Air 07/05/23 01:48 O2 Flow Rate 2 07/05/23 00:35 07/04/23 07/04/23 07/05/23 14:59 22:59 06:59 Intake Total 250 / 250 Balance 250 / 250 Weight last 48 hrs Weight 81.647 kg Physical Exam Narrative: General: No acute distress, AO x3 HEENT: PERRLA, pupils bilaterally equal and reactive, pallors not present Chest: Normal vesicular breath sounds, no added sounds, equal good air entry bilaterally CVS: S1-S2 regular, no murmurs, no tachycardia, no gallops, no rubs Abdomen: Soft, nontender, no organomegaly, bowel sounds present Neuro: No focal deficits, no facial deformity, AO x3, power 5/5 in all limbs Extremities: Warmth and swelling around the right foot, right ankle and digits extending into lower cough Data 07/04/23 23:01 07/04/23 23:01 Micro: Microbiology 07/04/23 23:01 Blood Culture - Preliminary Blood SPECIMEN COLLECTED 07/04/23 23:01 Blood Culture - Preliminary Blood SPECIMEN COLLECTED Other data: [id number] [address] [address] Scan Report Signed Patient: Mayra Ascencio Unit #: [id number] : 1965 Age/Sex: 58 / F ADM Date: 07/04/23 Loc: ER Room/Bed: Attending Dr: Ordering Provider/Ordering MD: Ernesto Holman NP Date of Service: 07/04/23 Procedure(s): CT lower leg RT w con [id number] Accession Number(s): [id number] Report Number: [id number] PROCEDURE INFORMATION: Exam: CT Right Lower Extremity Without Contrast; Lower Leg Exam date and time: 07/04/2023 11:50 PM Age: 58 years old Clinical indication: Cellulitis; Prior surgery; Surgery date: 6+ months; Surgery type: Knee replacement; Patient HX: Ulcer right toe, redness from toes to mid lower leg; Additional info: Infection TECHNIQUE: Imaging protocol: CT of the right lower extremity without contrast was performed. Exam focused on the lower leg. Radiation optimization: All CT scans at this facility use at least one of these dose optimization techniques: automated exposure control; mA and/or kV adjustment per patient size (includes targeted exams where dose is matched to clinical indication); or iterative reconstruction. REPORTING DATA: Count of CT and Cardiac NM exams in prior 12 months: This patient has received 3 known CTs and 0 known cardiac nuclear medicine studies in the 12 months prior to the current study. COMPARISON: CR (LOW EXM, ) 07/04/2023 11:02 PM RADIATION DOSE METRICS: Total DLP (mGy-cm): 643.61 FINDINGS: Bones/joints: Unremarkable. No acute fracture or dislocation. No lytic lesion. Unremarkable right knee joint arthroplasty alignment. Soft tissues: Diffuse superficial soft tissue edema. Negative for gas. Negative for foreign body. Negative for abscess. Superficial ulcer of the medial great toe. CT/CT lower leg RT w con [id number] IMPRESSION: 1. ? Right lower extremity soft tissue edema which may represent cellulitis. 2. ? Negative for abscess. 3. ? Negative for osteomyelitis. US/[place] [id number] IMPRESSION: No evidence of deep vein thrombosis. ? A&P Assessment and plan (1) Cellulitis: Patient with a recent history of cellulitis affecting the right lower extremity and reported osteomyelitis of the right foot per patient history presenting with fever, chills, persistent cellulitis over the right lower extremity involving the foot and lower calf which has not responded to treatment with outpatient oral Zyvox. The right leg was performed per my request today, does not show any gross evidence of osteomyelitis We will obtain records from [place], patient states she had an MRI bone scan and several CTs at this facility. Started on empiric treatment with IV cefepime and vancomycin while pending records. Patient's chart reported an allergy to vancomycin, however verified that in 2020 she received 6 weeks of IV vancomycin for a left prosthetic knee infection and tolerated it without incidence. She has also additionally tolerated Bactrim in the past. Vancomycin and Bactrim allergies have been removed from the chart today. Blood cultures taken and pending No complaints of chest pain dyspnea palpitations syncope nausea vomiting or diarrhea currently. Qualifiers: Laterality: right Site of cellulitis: extremity Site of cellulitis of extremity: lower extremity Qualified Code(s): L03.115 - Cellulitis of right lower limb (2) Type 2 diabetes mellitus with diabetic autonomic (poly)neuropathy: Insulin sliding scale (3) Rheumatoid arthritis: Plan DVT prophylaxis: Lovenox Full code Attestations Medical Necessity Statement*: Greater than 2 midnight admission is anticipated for management of cellulitis that has not responded to p.o. antibiotics over the last few weeks, need to expand IV antibiotics, obtain prior records to clarify history of osteomyelitis, fever source evaluation Coding Level of Care Code Acute Code for Chg Fwd High MDM includes number and complexity of problems actively addressed during encounter, amount and/or complexity of data reviewed/ordered and described risk of complication, morbidity or mortality of management as documented Diagnoses Cellulitis L03.115 Laterality: right Site of cellulitis: extremity Site of cellulitis of extremity: lower extremity Type 2 diabetes mellitus with diabetic autonomic (poly)neuropathy E11.43 Rheumatoid arthritis M06.9
[2023-07-05] MEDS: metoprolol succinate ER (24 HR) 25 mg Tablet 12.5 MG PO (05:15)
[2023-07-05] MEDS: morphine IR 15 mg Tablet PO ×3 (05:15→17:37)
[2023-07-05] MEDS: aspirin 81 mg EC Tablet PO (05:16)
[2023-07-05] MEDS: cefepime 2,000 MG in sodium chloride 0.9% (plus) 50 ML 100 MG IV ×2 (05:16→17:37)
[2023-07-05] MEDS: atorvastatin 40 mg Tablet PO (05:16)
[2023-07-05] MEDS: enoxaparin 40 mg/0.4 mL Syringe SUBCUT (06:14)
[2023-07-05 06:38] LABS: Glucose Point of Care 148 mg/dL (70-110)
[2023-07-05] MEDS: ipratropium-albuterol 3 mL Neb INHALATION ×3 (08:05→20:29)
[2023-07-05] MEDS: duloxetine 60 mg Capsule PO (08:21)
[2023-07-05] MEDS: losartan 50 mg Tablet PO (08:21)
[2023-07-05] MEDS: oxybutynin chloride XL 5 MG TABLET PO (08:21)
[2023-07-05] MEDS: ticagrelor 90 mg Tablet PO (08:21)
[2023-07-05] MEDS: levETIRAcetam 500 mg Tablet PO ×2 (08:21→17:37)
[2023-07-05] MEDS: isosorbide mononitrate ER 60 mg Tablet 30 MG PO ×2 (08:22→17:37)
[2023-07-05] MEDS: pantoprazole DR 40 mg Tablet PO (08:22)
[2023-07-05] MEDS: insulin lispro 100 unit/1 mL SUBCUT ×3 (08:22→17:38)
--- NOTE | 2023-07-05 10:11 | PC.PHAR ---
Addendum entered by Ursula Pineda 07/05/23 13:34: medications entered are the medications that was brought in with the pt plus trulicity the pt states she takes-pt only using the spiriva handihaler-pt states she hasnt used her humalog (filled 01/25/23) and levemir (rx filled 01/14/23) in 7 months-pt states the only injection she has been taking is the trulicity-ext shows repatha sureclick 140mg/ml q14d filled 06/18/23 28d/s-pt did NOT have med bottle of cymbalta 60mg daily in her med bag ext shows filled 06/18/23 30d/s-ext shows augmentin 870-125mg bid filled 06/03/23 34d/s and doxycycline hyclate 100mg bid filled 06/01/23 34d/s those bottles were not with her medications-[facility] states they have flexeril 10mg tid prn ready for the pt to steel pickler no med was found in the pts med bottles-notes are made in the pharmacy comments with the rx bottle dates Addendum entered by Ursula Pineda 07/05/23 11:21: pts father bessy states the pt just moved back here on tuesday07/01/23 states she has been gone since January-states the pt had been in the hospital in [facility] and just got out a week ago-pts father states to call the [facility] in [facility] and they should be able to tell what has been filled recently and states he also sent the pts medications with her in the ambulance on 07/04/23- Original Note: pt states her dad bessy takes care of her medications-called pts dad bessy no answer
[2023-07-05 11:07] LABS: Glucose Point of Care 209 mg/dL (70-110)
--- NOTE | 2023-07-05 11:09 | P.PN_ITS ---
Subjective Subjective: Admitted overnight. H&P and labs appreciated. Patient lying comfortably in bed. Denies any nausea, vomiting, headache. Complaining of pain in the leg. States usually take morphine twice a day. Blood work appreciated. Vitals/I&O/Wt Last Vital Signs Temp 98.0 F 07/05/23 07:23 Pulse 90 07/05/23 08:00 Resp 16 07/05/23 08:00 BP 135/85 07/05/23 08:21 Pulse Ox 92 07/05/23 08:00 O2 Del Method Nasal Cannula 07/05/23 08:00 O2 Flow Rate 2 07/05/23 08:00 07/04/23 07/05/23 07/05/23 22:59 06:59 14:59 Intake Total 300 / 300 240 / 240 Balance 300 / 300 240 / 240 Weight last 48 hrs Weight 81.647 kg Physical Exam Narrative: General: No acute distress, AO x3 HEENT: PERRLA, pupils bilaterally equal and reactive, pallors not present Chest: Normal vesicular breath sounds, no added sounds, equal good air entry bilaterally CVS: S1-S2 regular, no murmurs, no tachycardia, no gallops, no rubs Abdomen: Soft, nontender, no organomegaly, bowel sounds present Neuro: No focal deficits, no facial deformity, AO x3, power 5/5 in all limbs Extremities: Warmth and swelling around the right foot, right ankle and digits extending into lower cough Skin: OTHER: Data 07/04/23 23:01 07/04/23 23:01 Micro: Microbiology 07/04/23 23:01 Blood Culture - Preliminary Blood SPECIMEN COLLECTED 07/04/23 23:01 Blood Culture - Preliminary Blood SPECIMEN COLLECTED A&P Assessment and plan (1) Cellulitis: Patient recently treated for cellulitis with osteomyelitis of right foot and 3 lateral toes at outside hospital. Currently on oral Zyvox for last 3 weeks. Admitted for persistent pain and erythema localized to right diaz. As per patient cellulitis had improved but then has remained stable and started hurting recently. Will request records from outside hospital. CT lower limb in ER negative for osteomyelitis or abscess. Doppler negative for DVT. Follow-up blood cultures. For now continue with empiric vancomycin and cefepime. Qualifiers: Laterality: right Site of cellulitis: extremity Site of cellulitis of extremity: lower extremity Qualified Code(s): L03.115 - Cellulitis of right lower limb (2) Type 2 diabetes mellitus with diabetic autonomic (poly)neuropathy: Last A1c from December 24 0.4. Insulin sliding scale. Carb consistent diet (3) Rheumatoid arthritis: (4) COPD exacerbation: No exacerbation. Continue with daily DuoNebs and Pulmicort. Patient has history of hypersensitive pneumonitis (5) CAD (coronary artery disease): No active chest pain. Seems to be on dual antiplatelet for more than 2 years. Lost to follow-up most recently with canceled appointments. Stop Brilinta. Continue with aspirin, statin, beta-nany Qualifiers: Coronary Disease-Associated Artery/Lesion type: [place] artery [place] vs. transplanted heart: [place] heart Associated angina: without angina Qualified Code(s): I25.10 - Atherosclerotic heart disease of [place] coronary artery without angina pectoris (6) Failure of outpatient treatment: Plan Continue other chronic medications. Carb consistent cardiac diet DVT prophylaxis: Lovenox Protonix for PUD prophylaxis Full code Attestations Medical Necessity Statement*: Requires further hospitalization for management of right lower limb cellulitis with failure to outpatient treatment while outpatient documents are requested Diagnoses Cellulitis L03.115 Laterality: right Site of cellulitis: extremity Site of cellulitis of extremity: lower extremity Type 2 diabetes mellitus with diabetic autonomic (poly)neuropathy E11.43 Rheumatoid arthritis M06.9 COPD exacerbation J44.1 CAD (coronary artery disease) I25.10 Coronary Disease-Associated Artery/Lesion type: [place] artery [place] vs. transplanted heart: [place] heart Associated angina: without angina Failure of outpatient treatment Z78.9
[2023-07-05 16:59] LABS: Glucose Point of Care 227 mg/dL (70-110)
[2023-07-05] MEDS: vancomycin 1,500 MG/300 ML PIGGYBACK 200 MG IV (18:42)
[2023-07-05] MEDS: quetiapine 100 mg Tablet 150 MG PO (20:07)
[2023-07-05] MEDS: budesonide 0.5 mg/2 mL Neb INHALATION (20:29)
[2023-07-05 21:56] LABS: Glucose Point of Care 139 mg/dL (70-110)
[2023-07-06] VITALS (14 sets, daily range): BP systolic 91–129; BP diastolic 57–74; PULSE 83–104; RESP 16–20; TEMP 36.4–36.9; O2SAT 88–100
[2023-07-06] MEDS: morphine IR 15 mg Tablet PO ×3 (04:10→17:56)
[2023-07-06 04:15] LABS: Basophils # 0.1 10^3/uL (0.0-0.1); Basophils % 0.9 %; Eosinophils # 0.6 10^3/uL (0.0-0.8); Eosinophils % 7.2 %; Hematocrit 38.6 % (36-47); Lymphocytes # 2.6 10^3/uL (0.8-4.8); Lymphocytes % 29.5 %; Mean Corpuscular HGB Conc 30.8 g/dL (30-55); Mean Corpuscular Hemoglobin 27.2 pg (27-33); Mean Corpuscular Volume 88.3 fl (85-98); Monocytes # 0.8 10^3/uL (0.2-0.9); Monocytes % 9.4 %; Neutrophils # 4.67 10^3/uL (1.8-7.7); Neutrophils % 52.7 %; Nucleated Red Blood Cells % 0 %; Platelet Count 366 10^3/cmm (157-399); Red Blood Count 4.37 10^6/uL (3.85-5.65); Red Cell Distribution Width 15.9 % (12.1-15.1); White Blood Count 8.87 10^3/uL (3.29-11.43)
[2023-07-06 04:38] LABS: Alanine Aminotransferase 12 U/L (0-33); Alkaline Phosphatase 70 U/L (35-105); Aspartate Amino Transferase 14 U/L (0-32); Blood Urea Nitrogen 11 mg/dL (6-20); Calcium 8.8 mg/dL (8.5-10.5); Carbon Dioxide 20 mmol/L (22-29); Chloride 105 mmol/L (98-107); Globulin 3.5 g/dL (1.3-4.6); Glomerular Filtration Rate 127.6 mL/min (90-130); Glucose 142 mg/dL (65-115); Osmolality Calculated 282 mOsm/kg (285-295); Sodium 135 mmol/L (136-145); Total Bilirubin 0.2 mg/dL (0.15-1.2); Total Protein 6.5 g/dL (6.6-8.7)
[2023-07-06] MEDS: aspirin 81 mg EC Tablet PO (05:17)
[2023-07-06] MEDS: metoprolol succinate ER (24 HR) 25 mg Tablet 12.5 MG PO (05:17)
[2023-07-06] MEDS: enoxaparin 40 mg/0.4 mL Syringe SUBCUT (05:17)
[2023-07-06] MEDS: atorvastatin 40 mg Tablet PO (05:17)
[2023-07-06] MEDS: cefepime 2,000 MG in sodium chloride 0.9% (plus) 50 ML 100 MG IV ×2 (05:21→17:38)
[2023-07-06 06:55] LABS: Glucose Point of Care 148 mg/dL (70-110)
[2023-07-06] MEDS: levETIRAcetam 500 mg Tablet PO ×2 (08:11→17:56)
[2023-07-06] MEDS: duloxetine 60 mg Capsule PO (08:11)
[2023-07-06] MEDS: pantoprazole DR 40 mg Tablet PO (08:11)
[2023-07-06] MEDS: isosorbide mononitrate ER 60 mg Tablet 30 MG PO ×2 (08:11→17:56)
[2023-07-06] MEDS: losartan 50 mg Tablet PO (08:11)
[2023-07-06] MEDS: insulin lispro 100 unit/1 mL SUBCUT ×4 (08:42→21:40)
[2023-07-06] MEDS: ipratropium-albuterol 3 mL Neb INHALATION ×3 (09:39→20:37)
[2023-07-06] MEDS: budesonide 0.5 mg/2 mL Neb INHALATION ×2 (09:39→20:37)
--- NOTE | 2023-07-06 10:37 | PC.CHAP ---
Pastoral Care Encounter/Spiritual Assessment Type of Contact [] Declined academic vice president visit [] Patient/Family/Request visit [] Outpatient visit [] Follow-up visit [] Physician referral [] Code/Alert [x] Routine visit [] Staff referral [] Actively dying [x] Patient sleeping [] Family support [] [] Out of room [] Palliative care [] [] Receiving care in room [] Pre-surgical visit [] Trauma [] Long length of stay [] ICU visit [] Other: Relational/Emotional Strength [] Patient feels connected with others/family/visitors/staff [] Distress [] Loneliness/isolation [] Abandonment Spirituality of Patient [] Person of Mary [] Attends Moravian of their Mary [x] Believes in Prayer [] Reads Bible or Jewish materials [] There are Spiritual issues to be addressed Certified Nursing Assistant Interventions [x] Prayer [x] Active listening [] Non-anxious presence [] Spiritual/emotional support [] Crisis/trauma care [] Spiritual counseling [] Bereavement support [] Provided bereavement packet [] Provided Bible/devotional materials [] Provided toy/stuffed animal, coloring book to patient or family member [] Provided Communion [] Anointing/[place] [] Salvation [] Completed spiritual assessment [] Other: Impact on Illness or Injury [] Angry [] Fearful [] Anxious [] Often cries [] Exhaustion [] Unable to work [] Unable to attend sikh [] Unable to walk/stand [] Unable to read [] Unable to drive [] Unable to eat/drink [] Unable to sleep [] Unable to be with family [] Patient intubated [] Other: Summary Time spent with patient 10 min
[2023-07-06] MEDS: oxybutynin chloride XL 5 MG TABLET PO (10:38)
[2023-07-06] MEDS: nystatin powder 15 gm Btl 1 APPLIC TOPICAL ×2 (10:42→18:04)
[2023-07-06 11:00] LABS: Glucose Point of Care 192 mg/dL (70-110)
[2023-07-06] MEDS: vancomycin 1,500 MG/300 ML PIGGYBACK 200 MG IV (11:52)
[2023-07-06] MEDS: fluconazole 100 mg Tablet PO (11:52)
--- NOTE | 2023-07-06 14:25 | P.PN_ITS ---
Subjective Subjective: No acute events overnight. Patient states she is feeling better. States she feels as if the leg is less swollen and less warm. Denies any nausea, vomiting, headache. Complaining of vaginal itching. States she usually gets a fungal infection whenever she is on antibiotics. Blood work appreciated for resolution of leukocytosis, stable hemoglobin, sodium stable at 135, creatinine stable at 0.5. Document received from outpatient hospital. Will review. Vitals/I&O/Wt Last Vital Signs Temp 97.7 F 07/06/23 11:25 Pulse 92 07/06/23 13:10 Resp 18 07/06/23 13:10 BP 96/57 07/06/23 11:25 Pulse Ox 92 07/06/23 13:10 O2 Del Method Room Air 07/06/23 13:10 O2 Flow Rate 2 07/06/23 09:44 07/05/23 07/06/23 07/06/23 22:59 06:59 14:59 Intake Total 830 / 1100 50 / 1150 720 / 720 Balance 830 / 350 50 / 400 720 / 720 Weight last 48 hrs Weight 81.647 kg Physical Exam Narrative: General: No acute distress, AO x3 HEENT: PERRLA, pupils bilaterally equal and reactive, pallors not present Chest: Normal vesicular breath sounds, no added sounds, equal good air entry bilaterally CVS: S1-S2 regular, no murmurs, no tachycardia, no gallops, no rubs Abdomen: Soft, nontender, no organomegaly, bowel sounds present Neuro: No focal deficits, no facial deformity, AO x3, power 5/5 in all limbs Extremities: Warmth and swelling around the right foot, right ankle and digits extending into lower cough Skin: OTHER: Data 07/06/23 03:48 07/06/23 03:48 Micro: Microbiology 07/04/23 23:01 Blood Culture - Preliminary Blood NEGATIVE TO DATE 07/04/23 23:01 Blood Culture - Preliminary Blood NEGATIVE TO DATE A&P Assessment and plan (1) Cellulitis: Patient recently treated for cellulitis with osteomyelitis of right foot and 3 lateral toes at outside hospital. Currently on oral Zyvox for last 3 weeks. Admitted for persistent pain and erythema localized to right diaz. As per patient cellulitis had improved but then has remained stable and started hurting recently. Documents from outside hospital appreciated. CT lower limb in ER negative for osteomyelitis or abscess. Doppler negative for DVT. Follow-up blood cultures. For now continue with empiric vancomycin and cefepime. Qualifiers: Laterality: right Site of cellulitis: extremity Site of cellulitis of extremity: lower extremity Qualified Code(s): L03.115 - Cellulitis of right lower limb (2) Type 2 diabetes mellitus with diabetic autonomic (poly)neuropathy: Last A1c from December 24 0.4. Insulin sliding scale. Carb consistent diet (3) Rheumatoid arthritis: (4) COPD exacerbation: No exacerbation. Continue with daily DuoNebs and Pulmicort. Patient has history of hypersensitive pneumonitis (5) CAD (coronary artery disease): No active chest pain. Seems to be on dual antiplatelet for more than 2 years. Lost to follow-up most recently with canceled appointments. Stop Brilinta. Continue with aspirin, statin, beta-nany Qualifiers: Coronary Disease-Associated Artery/Lesion type: [place] artery [place] vs. transplanted heart: [place] heart Associated angina: without angina Qualified Code(s): I25.10 - Atherosclerotic heart disease of [place] coronary artery without angina pectoris (6) Failure of outpatient treatment: Plan Continue other chronic medications. Carb consistent cardiac diet DVT prophylaxis: Lovenox Protonix for PUD prophylaxis Full code Plan for the day: Continue with empiric vancomycin and cefepime. No concerns for osteomyelitis or abscess for now. Cellulitis seems to be improving. Continue with insulin sliding scale at current dose. Concerns for vaginal yeast infection. Start on fluconazole 100 mg daily. Check urinary chlamydia and gonorrhea. Also check for trichomonas vaginalis. Continue other chronic medication. Increase insulin sliding scale to moderate dose protocol Discharge plan: If patient continues to remain afebrile with improvement in cellulitis will plan to discharge the next 24 hours on continued oral linezolid and additional gram-negative coverage for next 2 weeks. Attestations Medical Necessity Statement*: Requires further hospitalization for management of cellulitis with failure to outpatient treatment Diagnoses Cellulitis L03.115 Laterality: right Site of cellulitis: extremity Site of cellulitis of extremity: lower extremity Type 2 diabetes mellitus with diabetic autonomic (poly)neuropathy E11.43 Rheumatoid arthritis M06.9 COPD exacerbation J44.1 CAD (coronary artery disease) I25.10 Coronary Disease-Associated Artery/Lesion type: [place] artery [place] vs. transplanted heart: creek heart Associated angina: without angina Failure of outpatient treatment Z78.9
[2023-07-06 16:46] LABS: Glucose Point of Care 223 mg/dL (70-110)
[2023-07-06] MEDS: quetiapine 100 mg Tablet 150 MG PO (20:14)
[2023-07-06 21:41] LABS: Glucose Point of Care 183 mg/dL (70-110)
[2023-07-07] VITALS (8 sets, daily range): BP systolic 98–108; BP diastolic 55–71; PULSE 77–105; RESP 16–20; TEMP 36.6–36.9; O2SAT 90–94
[2023-07-07] MEDS: ipratropium-albuterol 3 mL Neb INHALATION ×2 (03:27→08:50)
[2023-07-07 05:09] LABS: Basophils # 0.1 10^3/uL (0.0-0.1); Basophils % 1.1 %; Eosinophils # 0.7 10^3/uL (0.0-0.8); Eosinophils % 8.6 %; Hematocrit 39.1 % (36-47); Lymphocytes % 36.2 %; Mean Corpuscular Hemoglobin 27.7 pg (27-33); Mean Corpuscular Volume 86.7 fl (85-98); Mean Platelet Volume 8.7 fL (7.4-10.4); Monocytes # 0.9 10^3/uL (0.2-0.9); Monocytes % 10.5 %; Neutrophils # 3.53 10^3/uL (1.8-7.7); Neutrophils % 43.2 %; Nucleated Red Blood Cells % 0 %; Platelet Count 391 10^3/cmm (157-399); Red Blood Count 4.51 10^6/uL (3.85-5.65); Red Cell Distribution Width 15.9 % (12.1-15.1); White Blood Count 8.17 10^3/uL (3.29-11.43)
[2023-07-07] MEDS: aspirin 81 mg EC Tablet PO (05:28)
[2023-07-07] MEDS: metoprolol succinate ER (24 HR) 25 mg Tablet 12.5 MG PO (05:28)
[2023-07-07] MEDS: morphine IR 15 mg Tablet PO (05:28)
[2023-07-07] MEDS: atorvastatin 40 mg Tablet PO (05:28)
[2023-07-07] MEDS: enoxaparin 40 mg/0.4 mL Syringe SUBCUT (05:29)
[2023-07-07 05:31] LABS: Alanine Aminotransferase 12 U/L (0-33); Albumin Level 3.3 g/dL (3.5-5.2); Alkaline Phosphatase 68 U/L (35-105); Anion Gap 14.8 (5-19); Aspartate Amino Transferase 15 U/L (0-32); Blood Urea Nitrogen 11 mg/dL (6-20); Calcium 8.9 mg/dL (8.5-10.5); Carbon Dioxide 24 mmol/L (22-29); Chloride 104 mmol/L (98-107); Creatinine Clr Calc Pharmacy 110.5027; Globulin 3.4 g/dL (1.3-4.6); Glomerular Filtration Rate 103.4 mL/min (90-130); Glucose 163 mg/dL (65-115); Osmolality Calculated 289 mOsm/kg (285-295); Potassium 4.8 mmol/L (3.5-5.1); Sodium 138 mmol/L (136-145); Total Bilirubin 0.2 mg/dL (0.15-1.2); Total Protein 6.7 g/dL (6.6-8.7)
[2023-07-07] MEDS: cefepime 2,000 MG in sodium chloride 0.9% (plus) 50 ML 100 MG IV (05:33)
[2023-07-07] MEDS: vancomycin 1,500 MG/300 ML PIGGYBACK 200 MG IV (06:06)
[2023-07-07 06:46] LABS: Glucose Point of Care 233 mg/dL (70-110)
[2023-07-07] MEDS: insulin lispro 100 unit/1 mL SUBCUT ×2 (08:30→12:01)
[2023-07-07] MEDS: losartan 50 mg Tablet PO (08:31)
[2023-07-07] MEDS: oxybutynin chloride XL 5 MG TABLET PO (08:32)
[2023-07-07] MEDS: levETIRAcetam 500 mg Tablet PO (08:33)
[2023-07-07] MEDS: fluconazole 100 mg Tablet PO (08:33)
[2023-07-07] MEDS: pantoprazole DR 40 mg Tablet PO (08:33)
[2023-07-07] MEDS: isosorbide mononitrate ER 60 mg Tablet 30 MG PO (08:34)
[2023-07-07] MEDS: duloxetine 60 mg Capsule PO (08:35)
[2023-07-07] MEDS: nystatin powder 15 gm Btl 1 APPLIC TOPICAL (08:36)
[2023-07-07] MEDS: budesonide 0.5 mg/2 mL Neb INHALATION (08:50)
--- NOTE | 2023-07-07 09:37 | P.DS_ITS ---
Discharge Providers Date of Admission: 07/05/23 00:34 Date of Discharge: July 07, 2023 Attending Provider at Admission: Elke Gresham MD Attending Provider at Discharge: Cornelius Joyce MD Primary Care Provider: Laurel Eagle MD Diagnoses at Discharge Discharge Diagnosis (1) Cellulitis: Status: Acute Qualifiers: Laterality: right Site of cellulitis: extremity Site of cellulitis of extremity: lower extremity Qualified Code(s): L03.115 - Cellulitis of right lower limb (2) Type 2 diabetes mellitus with diabetic autonomic (poly)neuropathy: Status: Acute (3) Rheumatoid arthritis: Status: Acute (4) COPD exacerbation: Status: Acute (5) CAD (coronary artery disease): Status: Acute Qualifiers: Associated angina: without angina Coronary Disease-Associated Artery/Lesion type: [place] artery [place] vs. 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 septic arthritis of left knee s/p removal of all hardware, currently with carmelita koo 2020,? hypertension, presented with right lower extremity swelling. Patient states that her symptoms for started about 2? months ago when she developed cellulitis of the entire leg on the right side.? At onset of symptoms it appears the erythema was extending up into her thighs.? She believes all of this started after a diabetic ulcer over her great toe.? She has recently moved back into the [facility], left in [facility] for a few months.? [facility] the [facility] and was grzegorz gnosed with osteomyelitis of the foot and was recommended amputation of the lateral 3 digits.? It appears she did not eventually undergo any surgeries.? He states she had a CT, an MRI and a bone scan performed on this recent visit.? She received inpatient treatment with IV antibiotics, which was transitioned to oral linezolid at the time of discharge.? She comes into the emergency room today as symptoms have not completely resolved.? There continues to be erythema involving her right foot, right ankle and the lower part of the right calf.? She has developed fever up to 101.5 Fahrenheit at home.? She has been on treatment with oral linezolid for the past 3 weeks but does not think this is making a difference.? States that her foot never quite returned back to normal in spite of treatment with IV antibiotics. Patient was admitted to the hospital for management of lower limb cellulitis wit h failure to outpatient therapy. Osteomyelitis and abscess was ruled out by CT of the leg. She was started on broad-spectrum antibiotics while Zyvox was converted to vancomycin while in hospital. Her hospitalization was otherwise unremarkable and cellulitis showed gradual improvement. On admission DVT was ruled out with a venous duplex. Patient responded well to the treatment and her cellulitis improved. She has been discharged in hemodynamically stable condition with advised to continue her linezolid as before. Along with linezolid she will also be taking Levaquin 750 once daily for 1 week along with Flagyl 3 times a day. She is also being on fluconazole 100 mg daily for next 5 days for vaginal yeast infection. Physical Exam Narrative: General: No acute distress, AO x3 HEENT: PERRLA, pupils bilaterally equal and reactive, pallors not present Chest: Normal vesicular breath sounds, no added sounds, equal good air entry bilaterally CVS: S1-S2 regular, no murmurs, no tachycardia, no gallops, no rubs Abdomen: Soft, nontender, no organomegaly, bowel sounds present Neuro: No focal deficits, no facial deformity, AO x3, power 5/5 in all limbs Extremities: Warmth and swelling around the right foot, right ankle and digits extending into lower cough Skin: OTHER: Discharge Data Studies Completed and Pending Completed Studies During Hospitalization Category Date Time Status CT lower leg RT w con [id number] Stat Cat Scan 07/04/23 23:44 Completed XR foot RT min 3V* [id number] Stat Exams 07/04/23 22:41 Completed XR tibia fibula RT 2V [id number] Stat Exams 07/04/23 22:41 Completed US venous duplex lower extremity RT [CV venous duplex Ultrasound 07/04/23 22:[place] [id number]] Stat Pending at discharge Category Date Time Status Blood Culture Stat Lab 07/04/23 23:01 Results Chlamydia/Gonorrh/T.Vagi TMA Q Routine Lab 07/06/23 11:29 Received Radiology Impressions Foot X-Ray 07/04/23 22:41 IMPRESSION: Negative for osteomyelitis. Tibia/Fibula X-Ray 07/04/23 22:41 IMPRESSION: Negative for osteomyelitis. Venous Duplex 07/04/23 22:41 IMPRESSION: No evidence of deep vein thrombosis. Lower Extremity CT 07/04/23 23:44 IMPRESSION: 1. Right lower extremity soft tissue edema which may represent cellulitis. 2. Negative for abscess. 3. Negative for osteomyelitis. Laboratory Results WBC 8.17 10^3/uL (3.29-11.43) 07/07/23 04:39 RBC 4.51 10^6/uL (3.85-5.65) 07/07/23 04:39 Hgb 12.50 g/dL (11.27-16.99) 07/07/23 04:39 Hct 39.1 % (36-47) 07/07/23 04:39 MCV 86.7 fl (85-98) 07/07/23 04:39 MCH 27.7 pg (27-33) 07/07/23 04:39 MCHC 32.0 g/dL (30-55) 07/07/23 04:39 RDW 15.9 % (12.1-15.1) H 07/07/23 04:39 Plt Count 391 10^3/cmm (157-399) 07/07/23 04:39 MPV 8.7 fL (7.4-10.4) 07/07/23 04:39 Neut % (Auto) 43.2 % 07/07/23 04:39 Lymph % (Auto) 36.2 % 07/07/23 04:39 [place] % (Auto) 10.5 % 07/07/23 04:39 Eos % (Auto) 8.6 % 07/07/23 04:39 Baso % (Auto) 1.1 % 07/07/23 04:39 Neut # (Auto) 3.53 10^3/uL (1.8-7.7) 07/07/23 04:39 Lymph # (Auto) 3.0 10^3/uL (0.8-4.8) 07/07/23 04:39 [place] # (Auto) 0.9 10^3/uL (0.2-0.9) 07/07/23 04:39 Eos # (Auto) 0.7 10^3/uL (0.0-0.8) 07/07/23 04:39 Baso # (Auto) 0.1 10^3/uL (0.0-0.1) 07/07/23 04:39 Nucleated RBC % (auto) 0 % 07/07/23 04:39 Nucleated RBCs # 0.0 /100WBC 07/07/23 04:39 ESR 45 mm/hr (0-15) H 07/04/23 23:01 PT 12.90 SECONDS (12.1-14.9) 07/04/23 23:01 INR 0.95 (0.8-1.2) 07/04/23 23:01 APTT 33.9 SECONDS (23.9-36.7) 07/04/23 23:01 D-Dimer 0.70 ug/mLFEU (0-0.59) H 07/04/23 23:01 Sodium 138 mmol/L (136-145) 07/07/23 04:39 Potassium 4.8 mmol/L (3.5-5.1) 07/07/23 04:39 Chloride 104 mmol/L (98-107) 07/07/23 04:39 Carbon Dioxide 24 mmol/L (22-29) 07/07/23 04:39 Anion Gap 14.8 (5-19) 07/07/23 04:39 BUN 11 mg/dL (6-20) 07/07/23 04:39 Creatinine 0.6 mg/dL (0.5-0.9) 07/07/23 04:39 GFR Calculation 103.4 mL/min (90-130) 07/07/23 04:39 Glucose 163 mg/dL (65-115) H 07/07/23 04:39 POC Glucose 233 mg/dL (70-110) H 07/07/23 06:36 Calculated Osmolality 289 mOsm/kg (285-295) 07/07/23 04:39 Lactic Acid 1.9 mmol/L (0.5-2.2) 07/04/23 23:01 Calcium 8.9 mg/dL (8.5-10.5) 07/07/23 04:39 Total Bilirubin 0.2 mg/dL (0.15-1.2) 07/07/23 04:39 AST 15 U/L (0-32) 07/07/23 04:39 ALT 12 U/L (0-33) 07/07/23 04:39 Alkaline Phosphatase 68 U/L (35-105) 07/07/23 04:39 C-Reactive Protein 48.9 mg/L (0.0-4.9) H 07/04/23 23:01 Total Protein 6.7 g/dL (6.6-8.7) 07/07/23 04:39 Albumin 3.3 g/dL (3.5-5.2) L 07/07/23 04:39 Globulin 3.4 g/dL (1.3-4.6) 07/07/23 04:39 Procalcitonin 0.05 ng/mL (0-0.5) 07/04/23 23:01 Urine Color Yellow (Yellow) 07/04/23 23:15 Urine Appearance Sl hazy (CLEAR) A 07/04/23 23:15 Urine pH 7 (5-7) 07/04/23 23:15 Ur Specific [place] 1.010 (1.005-1.030) 07/04/23 23:15 Urine Protein Neg (Negative) 07/04/23 23:15 Urine Glucose (UA) 4+ (Normal) H 07/04/23 23:15 Urine Ketones Negative (Negative) 07/04/23 23:15 Urine Blood Neg (Negative) 07/04/23 23:15 Urine Nitrate Negative (Negative) 07/04/23 23:15 Urine Bilirubin Neg (Negative) 07/04/23 23:15 Urine Urobilinogen Norm mg/dL (Negative) 07/04/23 23:15 Ur Leukocyte Esterase Negative (Negative) 07/04/23 23:15 Urine RBC 0-4 /hpf (0-2) H 07/04/23 23:15 Urine WBC 0-4 /hpf (0-5) H 07/04/23 23:15 Ur Squamous Epith Cells 0-4 /hpf (0-5) H 07/04/23 23:15 Amorphous Sediment Not Reportable 07/04/23 23:15 Urine Bacteria Trace /hpf (NONE) 07/04/23 23:15 Nasal Influ A H1 2008 PCR Not detected (NOT DETECT) 07/05/23 00:45 Adenovirus (PCR) Not detected (NOT DETECT) 07/05/23 00:45 C. pneumoniae DNA (PCR) Not detected (NOT DETECT) 07/05/23 00:45 C.trachomatis RNA (TMA) Cancelled 07/06/23 11:29 Chlamydia/GC Comment Cancelled 07/06/23 11:29 Coronavirus 229E (PCR) Not detected (NOT DETECT) 07/05/23 00:45 Human Metapneumovir PCR Not detected (NOT DETECT) 07/05/23 00:45 Influenza A (H1) PCR Not detected (NOT DETECT) 07/05/23 00:45 Influenza A (H3) PCR Not detected (NOT DETECT) 07/05/23 00:45 Influenza Type A (PCR) Not detected (NOT DETECT) 07/05/23 00:45 Influenza Type B (PCR) Not detected (NOT DETECT) 07/05/23 00:45 M. pneumoniae (PCR) Not detected (NOT DETECT) 07/05/23 00:45 N.gonorrhoeae RNA (TMA) Cancelled 07/06/23 11:29 Parainfluenza 1 (PCR) Not detected (NOT DETECT) 07/05/23 00:45 Parainfluenza 2 (PCR) Not detected (NOT DETECT) 07/05/23 00:45 Parainfluenza 3 (PCR) Not detected (NOT DETECT) 07/05/23 00:45 Parainfluenza 4 (PCR) Not detected (NOT DETECT) 07/05/23 00:45 RSV Type A (PCR) Not detected (NOT DETECT) 07/05/23 00:45 RSV Type B (PCR) Not detected (NOT DETECT) 07/05/23 00:45 Entero/Rhino (PCR) Not detected (NOT DETECT) 07/05/23 00:45 SARS-CoV-2 (PCR) Not detected (NOT DETECT) 07/05/23 00:45 Vitals Last Vital Signs Temp 98.5 F 07/07/23 08:47 Pulse 99 07/07/23 08:59 Resp 20 H 07/07/23 08:50 BP 107/71 07/07/23 08:47 Pulse Ox 90 07/07/23 08:50 O2 Del Method Room Air 07/07/23 08:50 O2 Flow Rate 2 07/06/23 09:44 Discharge Plan Discharge Patient Disposition: Home Condition: Stable Prescriptions: New aspirin 81 mg Tablet,Delayed Release (Dr/Ec) 81 mg PO QAM Qty: 30 0RF duloxetine 60 mg Capsule,Delayed Release(Dr/Ec) 60 mg PO DAILY Qty: 30 0RF isosorbide mononitrate 60 mg Tablet Extended Release 24 Hr 30 mg PO BID Qty: 30 0RF metoprolol succinate 25 mg Tablet Extended Release 24 Hr 12.5 mg PO QAM Qty: 15 0RF metronidazole 500 mg tablet 500 mg PO BID 7 Days Qty: 14 0RF levetiracetam 500 mg Tablet 500 mg PO BID Qty: 60 0RF losartan 50 mg Tablet 50 mg PO DAILY@0800 Qty: 30 0RF levofloxacin 500 mg tablet 500 mg PO Q24H 7 Days Qty: 7 0RF Continued (DME) pen needle, diabetic [Comfort EZ Pen [place]] 32 gauge x 5/32 needle See Rx Instructions .Route Qty: 100 2RF Rx Instructions: use 3times a day to inject insulin. (DME) pen needle, diabetic [Comfort EZ Pen [place]] 31 gauge x 5/16 needle See Rx Instructions .Route Qty: 100 6RF Rx Instructions: use daily with levemir atorvastatin 80 mg tablet 80 mg PO QAM Qty: 30 3RF Jardiance 25 mg tablet 25 mg PO DAILY Qty: 30 4RF Rx Instructions: 340 b Spiriva with HandiHaler 18 mcg capsule, w/inhalation device 1 cap inhalation DAILY Qty: 30 3RF (DME) blood-glucose meter Misc See Rx Instructions .Route Qty: 1 0RF Rx Instructions: dailyAs directed (DME) Blood Glucose Test Strip See Rx Instructions .Route Qty: 100 0RF Rx Instructions: tid ac meals (DME) lancets Misc See Rx Instructions .Route Qty: 100 0RF Rx Instructions: 1 tid quetiapine 200 mg tablet 200 mg PO BEDTIME prednisolone acetate 1 % Drops,Suspension See Rx Instructions .ROUTE .COMPLEX Rx Instructions: as directed linezolid 600 mg tablet See Rx Instructions .ROUTE .COMPLEX Rx Instructions: TAKE 1 TABLET BY MOUTH EVERY 12 HOURS FOR 26 DAYS UNTIL 07/19/2023 metoprolol succinate 25 mg tablet extended release 24 hr 25 mg PO DAILY Zofran ODT 4 mg Tablet,Disintegrating 4 mg PO Q6H PRN (Reason: Nausea And Vomiting) metformin 500 mg tablet extended release 24 hr 500 mg PO BID ezetimibe 10 mg tablet 10 mg PO DAILY Trulicity 1.5 mg/0.5 mL Pen Injector 1.5 mg SUBCUT Q7D dorzolamide-timolol (PF) 2-0.5 % Drops See Rx Instructions .ROUTE .COMPLEX Rx Instructions: as directed furosemide 40 mg tablet 40 mg PO DAILY PRN (Reason: Edema) nitroglycerin [Nitrostat] 0.4 mg Tablet, Sublingual 0.4 mg SUBLINGUAL Q5M PRN (Reason: Chest Pain) Rx Instructions: do not exceed 3 doses per episode Discontinued Brilinta 90 mg tablet 90 mg PO BID@ Qty: 180 4RF acetazolamide 500 mg Capsule, Extended Release 500 mg PO BID Discharge Orders: Discharge Order (Routine); Ordered 07/07/23 Ordered By: Cornelius Joyce Referrals: Laurel Eagle MD [Primary Care Provider] - 7-10 days Discharge Diet: Cardiac and Diabetic Discharge Activity: Resume usual activity and Increase activity as tolerated Patient Instructions: Opioid Safety Activity Restrictions/Additional Instructions: Do not take Brilinta anymore. Continue taking your aspirin as before. Continue taking your linezolid as prescribed to you before. Finished a course of 6 weeks of linezolid. Levaquin 750 mg daily has been added for next 1 week along with Flagyl twice daily. Acetazolamide has been stopped. Continue all your other medications including Imdur, duloxetine, Keppra, losartan, metoprolol as before. Continue your a ntidiabetic medications as before. Follow-up with your primary care provider within next 10 days. Discharge Attestations Time Spent in Discharge Care*: greater than 30 min Specific Discharge Activities: educating patient, educating and/or supporting family/caregiver, discussing with pcp/other providers, discussing with disability case manager/social workers/dc planners, documenting/other paperwork and evaluating patient/reviewing data Status at Discharge: Cognitive status at discharge: mildly impaired cognition , Behavioral status at discharge: cooperative , Functional status at discharge: independent ambulation , Overall status at discharge: patient is back to baseline Quality Metrics Clinical Quality Measures [ No reported AMI, CVA or VTE this stay] Coding Level of Care Code 26700 Total time (in minutes) for Discharge: 50 Diagnoses Cellulitis L03.115 Laterality: right Site of cellulitis: extremity Site of cellulitis of extremity: lower extremity Type 2 diabetes mellitus with diabetic autonomic (poly)neuropathy E11.43 Rheumatoid arthritis M06.9 COPD exacerbation J44.1 CAD (coronary artery disease) I25.10 Associated angina: without angina Coronary Disease-Associated Artery/Lesion type: [place] artery [place] vs. transplanted heart: [place] heart Failure of outpatient treatment Z78.9
[2023-07-07 11:26] LABS: Glucose Point of Care 268 mg/dL (70-110)
[2023-07-07 11:49] LABS: Chlamydia Trachomatis RNA TMA NOT DETECTED (NOT DETECTED); Neisseria Gonorrhoeae RNA, TMA NOT DETECTED (NOT DETECTED); Trichomonas Vaginalis RNA NOT DETECTED (NOT DETECTED)
[2023-07-07] MEDS: acetaminophen 325 mg Tablet 650 MG PO (12:04)
== END 2023-07-07 12:13 | disposition home or self-care (01) | DRG 603 ==
LOC: ER 23:48 → MEDSURG 07-05 00:35
PROVIDERS: Admitting Provider Student in an Organized Health Care Education/Training Program; Emergency Provider Nurse Practitioner Family; PCP Family Medicine; Visit Provider Student in an Organized Health Care Education/Training Program
DX: L03.115 Cellulitis of right lower limb (principal); I69.951 Hemiplegia and hemiparesis following unspecified cerebrovascular disease affecting right dominant side; J44.9 Chronic obstructive pulmonary disease, unspecified; I11.0 Hypertensive heart disease with heart failure; I50.9 Heart failure, unspecified; I25.10 Atherosclerotic heart disease of native coronary artery without angina pectoris; E78.5 Hyperlipidemia, unspecified; M79.7 Fibromyalgia; I25.2 Old myocardial infarction; Z86.14 Personal history of Methicillin resistant Staphylococcus aureus infection; Z87.01 Personal history of pneumonia (recurrent); Z79.84 Long term (current) use of oral hypoglycemic drugs; Z79.85 Long-term (current) use of injectable non-insulin antidiabetic drugs; E11.9 Type 2 diabetes mellitus without complications; F17.210 Nicotine dependence, cigarettes, uncomplicated; Z87.440 Personal history of urinary (tract) infections; M06.9 Rheumatoid arthritis, unspecified; B37.31 Acute candidiasis of vulva and vagina
CPT/HCPCS: 36415; 36416; 73590; 73630; 73701; 80053; 81001; 82962; 83605; 84145; 85025; 85378; 85610; 85651; 85730; 86140; 87040; 87486; 87491; 87581; 87591; 87633; 93971; 94640; 96365; 96372; 96375; 99285; J0692; J1170; J1650; J1815; J3370; J7050; J7626; Q9967

== ENCOUNTER → 2023-07-19 07:56 | Outpatient (BNVA) | payer MEDICARE, MEDICAID, SELFPAY | PROVIDERS: PCP Family Medicine; Visit Provider Nurse Practitioner Family | DX: E11.621 Type 2 diabetes mellitus with foot ulcer (principal); L89.891 Pressure ulcer of other site, stage 1; Z09 Encounter for follow-up examination after completed treatment for conditions other than malignant neoplasm | CPT/HCPCS: 97597; 99213; A6210 ==

== ENCOUNTER 2023-08-01 17:38 | Emergency (ER) | payer MEDICARE, MEDICAID, SELFPAY ==
[2023-08-01 17:43] VITALS: BP 139/79; PULSE 97; RESP 16; TEMP 36.4; O2SAT 97; BMI 29.9
--- NOTE | 2023-08-01 18:08 | USR_ITS ---
PROCEDURE INFORMATION: Exam: US Duplex Right Lower Extremity Veins, Limited Exam date and time: 08/01/2023 6:49 PM Age: 58 years old Clinical indication: Edema, localized; Lower extremity, right; Patient HX: In wound care for 2 weeks C/O non-healing ulcer RT 1st toe. C/O chronic rle edema x 6 weeks. No history of dvt per patient. ; Additional info: Leg pain TECHNIQUE: Imaging protocol: Real-time duplex ultrasound of the right extremity with 2-D pierce scale, color Doppler flow and spectral waveform analysis including responses to compression and other maneuvers (when performed) with image documentation. Limited exam was focused on the right lower extremity veins. COMPARISON: [place] [id number] 07/04/2023 11:19 PM FINDINGS: Right deep veins: Unremarkable. The common femoral, femoral, proximal profunda femoral, popliteal, posterior tibial and peroneal veins are patent without thrombus. Normal Doppler waveforms. Normal compressibility and/or augmentation response. Superficial veins: Unremarkable. Saphenofemoral junction is patent without thrombus. Soft tissues: Unremarkable. US/[place] [id number] IMPRESSION: No sonographic evidence of deep vein thrombosis.
[2023-08-01 18:53] VITALS: BP 147/95; PULSE 96; O2SAT 93
[2023-08-01 18:59] LABS: Basophils # 0.1 10^3/uL (0.0-0.1); Basophils % 0.9 %; Eosinophils % 6.9 %; Hematocrit 46.7 % (36-47); Lymphocytes # 3.7 10^3/uL (0.8-4.8); Lymphocytes % 26.3 %; Mean Corpuscular Hemoglobin 27.1 pg (27-33); Mean Corpuscular Volume 87.3 fl (85-98); Mean Platelet Volume 10.6 fL (7.4-10.4); Monocytes # 0.9 10^3/uL (0.2-0.9); Monocytes % 6.4 %; Neutrophils # 8.22 10^3/uL (1.8-7.7); Neutrophils % 58.9 %; Nucleated Red Blood Cells % 0 %; Platelet Count 404 10^3/cmm (157-399); Red Blood Count 5.35 10^6/uL (3.85-5.65); Red Cell Distribution Width 15.2 % (12.1-15.1); White Blood Count 13.96 10^3/uL (3.29-11.43)
[2023-08-01 19:00] VITALS: BP 159/89; PULSE 107; RESP 22; O2SAT 94
--- NOTE | 2023-08-01 19:06 | ED_ITS ---
HPI - Extremity Problem General: Chief complaint: Extremity Problem,Nontraumatic Stated complaint: cellulitis right leg Time Seen by Provider: 08/01/23 18:35 Source: patient Mode of arrival: ambulatory Limitations: no limitations History of Present Illness: 58-year-old female who admits history of an ulcer to her right foot she is admitted here 2 weeks ago for cellulitis she finished antibiotics but states she is having some increasing pain in that foot no fever had some mild redness she is scheduled to see wound care tomorrow but states the pain did worsen today. She states she had some slight swelling in that leg as well. Associated symptoms: Deny chest pain, fever(s) or rash Review of Systems Const: Denies: fever(s), chills, body aches or change in appetite ENMT: Denies: throat pain or dental pain Card: Denies: chest pain Resp: Denies: dyspnea GI: Denies: abdominal pain, nausea, vomiting or diarrhea Musc: Reports: extremity pain; Denies: neck pain or back pain Skin/Breast: Denies: rash PFSH ED PFSH: Medical History (HFpEF) heart failure with preserved ejection fraction Abnormal stress test Acute alteration in mental status Acute and chronic respiratory failure with hypoxia Acute encephalopathy Acute exacerbation of CHF (congestive heart failure) Acute exacerbation of chronic obstructive pulmonary disease (COPD) Acute hypoxemic respiratory failure Acute respiratory failure with hypoxia Anemia CAD (coronary artery disease) Candidiasis of vagina Carpal tunnel syndrome, right Cellulitis of gluteal region Chest pain Chronic knee pain Chronic left-sided low back pain Chronic obstructive pulmonary disease, unspecified Chronic pain of left knee Chronic, continuous use of opioids Compression fracture of L2 lumbar vertebra COPD (chronic obstructive pulmonary disease) COPD exacerbation Coronary artery disease due to type 2 diabetes mellitus Current every day smoker CVA (cerebral vascular accident) Diabetes Diabetes type 2, uncontrolled Diabetic foot ulcer Dyslipidemia Dyspnea Elevated troponin Encounter for long-term opiate analgesic use Essential hypertension Exposure to COVID-19 virus Fibromyalgia, primary History of CVA (cerebrovascular accident) History of hypoglycemic coma History of stroke Hoarseness of voice Hyperlipidemia, mixed Hypersensitivity pneumonitis Hypoxemia Infection of total left knee replacement Insomnia Intervertebral disc disorder of lumbar region with myelopathy Leukocytosis Low back pain radiating to both legs Lumbosacral spondylosis without myelopathy Needs flu shot Neuropathy NSTEMI (non-ST elevated myocardial infarction) Thought to be secondary to plaque rupture. Angiogram July 04 no flow- limiting lesions, or restenosis of previous stent from April 2020 Numbness and tingling in both hands Obesity (BMI 35.0-39.9 without comorbidity) Opioid contract exists Osteoarthritis of left knee Osteoarthritis of spine at multiple levels Pericardial effusion Peripheral sensory neuropathy due to type 2 diabetes mellitus Pneumonia Pneumonia Pressure ulcer Prosthetic joint infection Rheumatoid arthritis Right arm weakness Right hip pain Right wrist deformity Sacral pressure ulcer Seizure Seizure disorder Seizures Sepsis Sepsis Septic arthritis of knee, left Stenosis of left internal carotid artery with cerebral infarction Syncope Type 2 diabetes mellitus with diabetic autonomic (poly)neuropathy Unstable angina Urinary incontinence Urinary tract infection UTI (urinary tract infection) Vitamin D deficiency Surgical History History of arthroscopic surgery of elbow BILATERAL History of coronary angiogram Angiogram April 2020 with 90% circumflex lesion, drug-eluting stent placed by Dr. Jerome S/p bilateral carpal tunnel release S/P hysterectomy S/P knee surgery RIGHT S/P lumbar fusion DR. Shreya ZAYAS IN [place], [place] L4-L5, L5-S1 Status post left knee replacement Status post lumbar laminectomy Family History Other CAD (coronary artery disease) Cancer Diabetes Social History Smoking and tobacco/nicotine status: current every day tobacco/nicotine user cigarettes Packs smoked per day: 0.5 Years cigarettes smoked: 10 [ Other cigarette details: PER PATIENT REPORT] Alcohol intake: former Substance/Drug Use: never Caregiver/support person: No Lives independently: Yes Household members: family and other Details: son Housing: Manufactured/Mobile home Marital status: Unknown Marital status details: She and son state she is not service: No Current occupational status: unemployed Pets and animals: Yes Do you think of yourself as: Straight/Heterosexual Current gender identity: Female Physical Exam Const: COMMON NORMALS: no acute distress, patient oriented x3 and healthy appearing HENMT: COMMON NORMALS: normocephalic HEAD & SCALP: normocephalic Neck/C-Spine: COMMON NORMALS: full ROM and supple Chest: COMMONS NORMALS: normal inspection of the chest Resp: COMMON NORMALS: normal respiratory effort Cardio: COMMON NORMALS: regular rate, regular rhythm and No murmurs present (Cardio) RATE: regular rate RHYTHM: regular rhythm GI: INSPECTION: Yes normal to inspection Extremity: OTHER: Ulcer noted to right great toe no signs of osteomyelitis minimal redness distal pulses sensation intact Neuro: COMMON NORMALS: patient oriented x3, moves all extremities and no focal motor deficits Psych: COMMON NORMALS: mental status grossly normal, Normal thought process present and cooperative THOUGHT PROCESS: Normal thought process present Skin: COMMON NORMALS: no rashes or lesions noted and no wounds GENERAL SKIN EXAM: no rashes or lesions noted Course Vital Signs: Vital signs: Vital Signs Temperature 97.6 F 08/01/23 17:43 Pulse Rate 96 08/01/23 18:53 Respiratory Rate 16 08/01/23 17:43 Blood Pressure 147/95 08/01/23 18:53 Pulse Oximetry 93 08/01/23 18:53 Oxygen Delivery Me thod Room Air 08/01/23 17:43 MDM - Extremity (Nontraumatic) Medical Decision Making Patient presents here with right foot pain likely from her foot ulcer white count here is normal no signs of osteomyelitis will start on Keflex along with pain medication she sees wound care tomorrow she is to follow-up as scheduled she is not toxic-appearing. Medical Records I reviewed the patient's medical records. Lab Data I reviewed the patient's lab results. 08/01/23 18:40 Laboratory Results WBC 13.96 10^3/uL (3.29-11.43) H 08/01/23 18:40 RBC 5.35 10^6/uL (3.85-5.65) 08/01/23 18:40 Hgb 14.50 g/dL (11.27-16.99) 08/01/23 18:40 Hct 46.7 % (36-47) 08/01/23 18:40 MCV 87.3 fl (85-98) 08/01/23 18:40 MCH 27.1 pg (27-33) 08/01/23 18:40 MCHC 31.0 g/dL (30-55) 08/01/23 18:40 RDW 15.2 % (12.1-15.1) H 08/01/23 18:40 Plt Count 404 10^3/cmm (157-399) H 08/01/23 18:40 MPV 10.6 fL (7.4-10.4) H 08/01/23 18:40 Neut % (Auto) 58.9 % 08/01/23 18:40 Lymph % (Auto) 26.3 % 08/01/23 18:40 [place] % (Auto) 6.4 % 08/01/23 18:40 Eos % (Auto) 6.9 % 08/01/23 18:40 Baso % (Auto) 0.9 % 08/01/23 18:40 Neut # (Auto) 8.22 10^3/uL (1.8-7.7) H 08/01/23 18:40 Lymph # (Auto) 3.7 10^3/uL (0.8-4.8) 08/01/23 18:40 [place] # (Auto) 0.9 10^3/uL (0.2-0.9) 08/01/23 18:40 Eos # (Auto) 1.0 10^3/uL (0.0-0.8) H 08/01/23 18:40 Baso # (Auto) 0.1 10^3/uL (0.0-0.1) 08/01/23 18:40 Nucleated RBC % (auto) 0 % 08/01/23 18:40 Nucleated RBCs # 0.0 /100WBC 08/01/23 18:40 All radiology interpretation(s) finalized by discharge Discharge Plan Discharge Patient Disposition: Home Clinical Impression: Foot pain, right, Ulcer of toe Condition: Stable Prescriptions: New cephalexin 500 mg capsule 500 mg PO TID 7 Days Qty: 21 0RF tramadol 50 mg tablet 50 mg PO Q8H PRN (Reason: pain) Qty: 20 0RF No Action (DME) pen needle, diabetic [Comfort EZ Pen [place]] 32 gauge x 5/32 needle See Rx Instructions .Route Qty: 100 2RF Rx Instructions: use 3times a day to inject insulin. (DME) pen needle, diabetic [Comfort EZ Pen [place]] 31 gauge x 5/16 needle See Rx Instructions .Route Qty: 100 6RF Rx Instructions: use daily with levemir atorvastatin 80 mg tablet 80 mg PO QAM Qty: 30 3RF Jardiance 25 mg tablet 25 mg PO DAILY Qty: 30 4RF Rx Instructions: 340 b Spiriva with HandiHaler 18 mcg capsule, w/inhalation device 1 cap inhalation DAILY Qty: 30 3RF (DME) blood-glucose meter Misc See Rx Instructions .Route Qty: 1 0RF Rx Instructions: dailyAs directed (DME) Blood Glucose Test Strip See Rx Instructions .Route Qty: 100 0RF Rx Instructions: tid ac meals (DME) lancets Misc See Rx Instructions .Route Qty: 100 0RF Rx Instructions: 1 tid Trulicity 1.5 mg/0.5 mL pen injector 1.5 mg SUBCUT Q7D Qty: 2 0RF quetiapine 200 mg tablet 200 mg PO BEDTIME prednisolone acetate 1 % Drops,Suspension See Rx Instructions .ROUTE .COMPLEX Rx Instructions: as directed linezolid 600 mg tablet See Rx Instructions .ROUTE .COMPLEX Rx Instructions: TAKE 1 TABLET BY MOUTH EVERY 12 HOURS FOR 26 DAYS UNTIL 07/19/2023 metoprolol succinate 25 mg tablet extended release 24 hr 25 mg PO DAILY ondansetron 4 mg Tablet,Disintegrating 4 mg PO Q6H PRN (Reason: Nausea And Vomiting) metformin 500 mg tablet extended release 24 hr 500 mg PO BID ezetimibe 10 mg tablet 10 mg PO DAILY dorzolamide-timolol (PF) 2-0.5 % Drops See Rx Instructions .ROUTE .COMPLEX Rx Instructions: as directed furosemide 40 mg tablet 40 mg PO DAILY PRN (Reason: Edema) losartan 50 mg Tablet 50 mg PO DAILY@0800 Qty: 30 0RF levetiracetam 500 mg Tablet 500 mg PO BID Qty: 60 0RF aspirin 81 mg Tablet,Delayed Release (Dr/Ec) 81 mg PO QAM Qty: 30 0RF isosorbide mononitrate 60 mg Tablet Extended Release 24 Hr 30 mg PO BID Qty: 30 0RF metoprolol succinate 25 mg Tablet Extended Release 24 Hr 12.5 mg PO QAM Qty: 15 0RF duloxetine 60 mg Capsule,Delayed Release(Dr/Ec) 60 mg PO DAILY Qty: 30 0RF nitroglycerin [Nitrostat] 0.4 mg Tablet, Sublingual 0.4 mg SUBLINGUAL Q5M PRN (Reason: Chest Pain) Rx Instructions: do not exceed 3 doses per episode Discharge Orders: Discharge ED (Routine); Ordered 08/01/23 Ordered By: Kelly Bates Referrals: Laurel Eagle MD [Primary Care Provider] - Discharge Diet: Advance as tolerated Discharge Activity: Resume usual activity Patient Instructions: Cellulitis (ED), Opioid Safety Coding Level of Care Code 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
[2023-08-01] MEDS: TRAMadol 50 mg Tablet PO (19:26)
[2023-08-01] MEDS: cephALEXin 500 mg Capsule PO (19:26)
[2023-08-01] MEDS: HYDROcodone-acetaminophen 5-325 mg Tablet 1 TAB PO (19:26)
== END 2023-08-01 19:50 | disposition home or self-care (01) ==
PROVIDERS: Emergency Provider Emergency Medicine; PCP Family Medicine
DX: L97.519 Non-pressure chronic ulcer of other part of right foot with unspecified severity (principal); F17.210 Nicotine dependence, cigarettes, uncomplicated; I11.0 Hypertensive heart disease with heart failure; I50.9 Heart failure, unspecified; I25.10 Atherosclerotic heart disease of native coronary artery without angina pectoris; J44.9 Chronic obstructive pulmonary disease, unspecified; E11.9 Type 2 diabetes mellitus without complications; E78.2 Mixed hyperlipidemia; I25.2 Old myocardial infarction; M79.604 Pain in right leg
CPT/HCPCS: 36415; 85025; 93971; 99284

== ENCOUNTER → 2023-08-02 10:39 | Outpatient (BNVA) | payer MEDICARE, MEDICAID, SELFPAY | PROVIDERS: PCP Family Medicine; Visit Provider Nurse Practitioner Family | DX: Z09 Encounter for follow-up examination after completed treatment for conditions other than malignant neoplasm (principal); Z87.2 Personal history of diseases of the skin and subcutaneous tissue | CPT/HCPCS: 99212 ==

== ENCOUNTER 2023-08-08 18:46 | Emergency (ER) | payer MEDICARE, MEDICAID, SELFPAY ==
[2023-08-08 19:04] VITALS: BP 148/84; PULSE 95; RESP 18; TEMP 36.4; O2SAT 98; BMI 29.9
--- NOTE | 2023-08-08 19:13 | W.ED.EXTPRO ---
HPI - Extremity Problem General: Chief complaint: Extremity Injury, Lower Stated complaint: allergic rxn Time Seen by Provider: 08/08/23 19:00 History of Present Illness: 58-year-old female comes in today for concerns of redness to the right lower extremity and itching. Patient states that she has had a reaction to the antibiotic she was prescribed at her last appointment which is caused her to itch all over. Patient appears nontoxic. Patient has some dry skin with abrasions noted to the back from her scratching. Patient does have a history of diabetes mellitus. Patient is concerned about a diabetic lesion to the right toe. Patient appears nontoxic. Associated symptoms: Deny fever(s) Review of Systems General: Reports: 10 or more systems reviewed and unremarkable except in HPI and below Const: Denies: fever(s) Musc: Reports: extremity pain Skin/Breast: Reports: erythema PFSH ED PFSH: Medical History (HFpEF) heart failure with preserved ejection fraction Abnormal stress test Acute alteration in mental status Acute and chronic respiratory failure with hypoxia Acute encephalopathy Acute exacerbation of CHF (congestive heart failure) Acute exacerbation of chronic obstructive pulmonary disease (COPD) Acute hypoxemic respiratory failure Acute respiratory failure with hypoxia Anemia CAD (coronary artery disease) Candidiasis of vagina Carpal tunnel syndrome, right Cellulitis of gluteal region Chest pain Chronic knee pain Chronic left-sided low back pain Chronic obstructive pulmonary disease, unspecified Chronic pain of left knee Chronic, continuous use of opioids Compression fracture of L2 lumbar vertebra COPD (chronic obstructive pulmonary disease) COPD exacerbation Coronary artery disease due to type 2 diabetes mellitus Current every day smoker CVA (cerebral vascular accident) Diabetes Diabetes type 2, uncontrolled Diabetic foot ulcer Dyslipidemia Dyspnea Elevated troponin Encounter for long-term opiate analgesic use Essential hypertension Exposure to COVID-19 virus Fibromyalgia, primary History of CVA (cerebrovascular accident) History of hypoglycemic coma History of stroke Hoarseness of voice Hyperlipidemia, mixed Hypersensitivity pneumonitis Hypoxemia Infection of total left knee replacement Insomnia Intervertebral disc disorder of lumbar region with myelopathy Leukocytosis Low back pain radiating to both legs Lumbosacral spondylosis without myelopathy Needs flu shot Neuropathy NSTEMI (non-ST elevated myocardial infarction) Thought to be secondary to plaque rupture. 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 Jerome S/p bilateral carpal tunnel release S/P hysterectomy S/P knee surgery RIGHT S/P lumbar fusion DR. Shreya ZAYAS IN [place], [place] L4-L5, L5-S1 Status post left knee replacement Status post lumbar laminectomy Family History Other CAD (coronary artery disease) Cancer Diabetes Social History Smoking and tobacco/nicotine status: current every day tobacco/nicotine user cigarettes Packs smoked per day: 0.5 Years cigarettes smoked: 10 [ Other cigarette details: PER PATIENT REPORT] Alcohol intake: former Substance/Drug Use: never Caregiver/support person: No Lives independently: Yes Household members: family and other Details: son Housing: Manufactured/Mobile home Marital status: Unknown Marital status details: She and son state she is not service: No Current occupational status: unemployed Pets and animals: Yes Do you think of yourself as: Straight/Heterosexual Current gender identity: Female Physical Exam Const: COMMON NORMALS: alert HENMT: COMMON NORMALS: normocephalic HEAD & SCALP: normocephalic Neck/C-Spine: COMMON NORMALS: full ROM Resp: COMMON NORMALS: normal respiratory effort and clear to auscultation bilaterally AUSCULTATION: clear to auscultation bilaterally Cardio: COMMON NORMALS: regular rate and regular rhythm RATE: regular rate RHYTHM: regular rhythm Back/Pelvis: COMMON NORMALS: thoracic and lumbar spine normal to inspection Extremity: RIGHT LOWER EXTREMITY: Yes foot & digits (Diabetic callus to the medial aspect of the right great toe.) Neuro: SENSORIUM/ORIENTATION: Yes alert Skin: NARRATIVE SKIN EXAM: Redness noted to bilateral lower extremities with minimal to no swelling. Pulses are intact. Patient also has some redness noted to the right great toe. Course Vital Signs: Vital signs: Vital Signs Temperature 97.5 F L 08/08/23 19:04 Pulse Rate 95 08/08/23 19:04 Respiratory Rate 18 08/08/23 19:04 Blood Pressure 148/84 08/08/23 19:04 Pulse Oximetry 98 08/08/23 19:04 Oxygen Delivery Me thod Room Air 08/08/23 19:04 MDM - Extremity (Nontraumatic) Medical Decision Making 58-year-old female comes in today for concerns of redness to the right lower extremity with possible cellulitis. Patient appears nontoxic. Patient appears in no pain. Patient reports itching secondary to cephalexin and tramadol she was put on for cellulitis on the . On exam patient has a diabetic ulcer to the right great toe. There is some mild redness proximally to the toe of the foot. Minimal redness is noted to the lower extremity. Differential diagnosis includes osteomyelitis, cellulitis, stasis dermatitis, malingering. X-ray of the foot noted no osteomyelitis but some possible air in the soft tissue suggesting infection. CBC showed a white blood cell count 12,000, CMP had a sodium 134, blood glucose 254, CRP was 20, sed rate was 17. Patient most likely has a wound infection to the great toe within the diabetic callus and some mild cellulitis. We will go ahead and treat with doxycycline due to patient's allergies to multiple medications. Patient was also written for some hydroxyzine to help with itching as needed. Patient and family both reported understanding. Recommended patient follow-up with podiatry for further evaluation of callus to the toe and treat accordingly. Patient was stable and discharged to home. Lab Data 08/08/23 19:40 08/08/23 19:40 Radiology Impressions Foot X-Ray 08/08/23 19:18 IMPRESSION: 1. Mild subcutaneous emphysema about the 1st digit, likely related to underlying infection, negative for acute bony abnormality. 2. Distal Achilles tendon degenerative calcification. 3. Soft tissue swelling about the foot. Laboratory Results WBC 12.04 10^3/uL (3.29-11.43) H 08/08/23 19:40 RBC 5.67 10^6/uL (3.85-5.65) H 08/08/23 19:40 Hgb 15.20 g/dL (11.27-16.99) 08/08/23 19:40 Hct 51.4 % (36-47) H 08/08/23 19:40 MCV 90.7 fl (85-98) 08/08/23 19:40 MCH 26.8 pg (27-33) L 08/08/23 19:40 MCHC 29.6 g/dL (30-55) L 08/08/23 19:40 RDW 15.1 % (12.1-15.1) 08/08/23 19:40 Plt Count 440 10^3/cmm (157-399) H 08/08/23 19:40 MPV 9.5 fL (7.4-10.4) 08/08/23 19:40 Neut % (Auto) 54.5 % 08/08/23 19:40 Lymph % (Auto) 30.0 % 08/08/23 19:40 [place] % (Auto) 6.5 % 08/08/23 19:40 Eos % (Auto) 7.2 % 08/08/23 19:40 Baso % (Auto) 0.7 % 08/08/23 19:40 Neut # (Auto) 6.56 10^3/uL (1.8-7.7) 08/08/23 19:40 Lymph # (Auto) 3.6 10^3/uL (0.8-4.8) 08/08/23 19:40 [place] # (Auto) 0.8 10^3/uL (0.2-0.9) 08/08/23 19:40 Eos # (Auto) 0.9 10^3/uL (0.0-0.8) H 08/08/23 19:40 Baso # (Auto) 0.1 10^3/uL (0.0-0.1) 08/08/23 19:40 Nucleated RBC % (auto) 0 % 08/08/23 19:40 Nucleated RBCs # 0.0 /100WBC 08/08/23 19:40 ESR 17 mm/hr (0-15) H 08/08/23 19:40 Sodium 134 mmol/L (136-145) L 08/08/23 19:40 Potassium 4.4 mmol/L (3.5-5.1) 08/08/23 19:40 Chloride 100 mmol/L (98-107) 08/08/23 19:40 Carbon Dioxide 21 mmol/L (22-29) L 08/08/23 19:40 Anion Gap 17.4 (5-19) 08/08/23 19:40 BUN 13 mg/dL (6-20) 08/08/23 19:40 Creatinine 0.7 mg/dL (0.5-0.9) 08/08/23 19:40 GFR Calculation 86.6 mL/min (90-130) L 08/08/23 19:40 Glucose 254 mg/dL (65-115) H 08/08/23 19:40 Calculated Osmolality 287 mOsm/kg (285-295) 08/08/23 19:40 Calcium 9.6 mg/dL (8.5-10.5) 08/08/23 19:40 Total Bilirubin 0.2 mg/dL (0.15-1.2) 08/08/23 19:40 AST 12 U/L (0-32) 08/08/23 19:40 ALT 17 U/L (0-33) 08/08/23 19:40 Alkaline Phosphatase 136 U/L (35-105) H 08/08/23 19:40 C-Reactive Protein 20.8 mg/L (0.0-4.9) H 08/08/23 19:40 Total Protein 8.3 g/dL (6.6-8.7) 08/08/23 19:40 Albumin 3.9 g/dL (3.5-5.2) 08/08/23 19:40 Globulin 4.4 g/dL (1.3-4.6) 08/08/23 19:40 All radiology interpretation(s) finalized by discharge Discharge Plan Discharge Patient Disposition: Home Clinical Impression: Cellulitis of right lower extremity, Type 2 diabetes mellitus with pressure callus Condition: Stable Prescriptions: New hydroxyzine HCl 25 mg tablet 25 mg PO Q6H PRN (Reason: itching) Qty: 20 0RF doxycycline hyclate 100 mg tablet 100 mg PO BID 10 Days Qty: 20 0RF No Action (DME) pen needle, diabetic [Comfort EZ Pen [place]] 32 gauge x 5/32 needle See Rx Instructions .Route Qty: 100 2RF Rx Instructions: use 3times a day to inject insulin. (DME) pen needle, diabetic [Comfort EZ Pen [place]] 31 gauge x 5/16 needle See Rx Instructions .Route Qty: 100 6RF Rx Instructions: use daily with levemir Spiriva with HandiHaler 18 mcg capsule, w/inhalation device 1 cap inhalation DAILY Qty: 30 3RF (DME) blood-glucose meter Misc See Rx Instructions .Route Qty: 1 0RF Rx Instructions: dailyAs directed (DME) Blood Glucose Test Strip See Rx Instructions .Route Qty: 100 0RF Rx Instructions: tid ac meals (DME) lancets Misc See Rx Instructions .Route Qty: 100 0RF Rx Instructions: 1 tid Trulicity 1.5 mg/0.5 mL pen injector 1.5 mg SUBCUT Q7D Qty: 2 0RF Jardiance 25 mg tablet 25 mg PO DAILY Qty: 30 4RF Rx Instructions: 340 b ezetimibe 10 mg tablet 10 mg PO DAILY Qty: 30 4RF atorvastatin 80 mg tablet 80 mg PO QAM Qty: 30 3RF metformin 500 mg tablet extended release 24 hr 500 mg PO BID Qty: 60 4RF quetiapine 200 mg tablet 200 mg PO BEDTIME Qty: 30 4RF pantoprazole 40 mg tablet,delayed release (DR/EC) 40 mg PO QAM Qty: 30 3RF metoprolol succinate 25 mg tablet extended release 24 hr 12.5 mg PO QAM Qty: 15 4RF levetiracetam 500 mg tablet 500 mg PO BID Qty: 60 4RF isosorbide mononitrate 60 mg tablet extended release 24 hr 30 mg PO BID Qty: 60 4RF duloxetine 60 mg capsule,delayed release(DR/EC) 60 mg PO DAILY Qty: 30 4RF aspirin 81 mg tablet,delayed release (DR/EC) 81 mg PO QAM Qty: 30 4RF prednisolone acetate 1 % Drops,Suspension See Rx Instructions .ROUTE .COMPLEX Rx Instructions: as directed linezolid 600 mg tablet See Rx Instructions .ROUTE .COMPLEX Rx Instructions: TAKE 1 TABLET BY MOUTH EVERY 12 HOURS FOR 26 DAYS UNTIL 07/19/2023 ondansetron 4 mg Tablet,Disintegrating 4 mg PO Q6H PRN (Reason: Nausea And Vomiting) dorzolamide-timolol (PF) 2-0.5 % Drops See Rx Instructions .ROUTE .COMPLEX Rx Instructions: as directed furosemide 40 mg tablet 40 mg PO DAILY PRN (Reason: Edema) losartan 50 mg Tablet 50 mg PO DAILY@0800 Qty: 30 0RF tramadol 50 mg tablet 50 mg PO Q8H PRN (Reason: pain) Qty: 20 0RF nitroglycerin [Nitrostat] 0.4 mg Tablet, Sublingual 0.4 mg SUBLINGUAL Q5M PRN (Reason: Chest Pain) Rx Instructions: do not exceed 3 doses per episode Discharge Orders: Discharge ED (Routine); Ordered 08/08/23 Ordered By: Ernesto Holman Referrals: Laurel Eagle MD [Primary Care Provider] - Discharge Diet: Usual diet Discharge Activity: Limit activity as instructed Patient Instructions: Cellulitis (ED), Diabetic Foot Ulcers (ED) Activity Restrictions/Additional Instructions: Home and rest. Use medication as prescribed for itching and for wound infection. Follow-up with podiatry for further evaluation of callus to the toe and further treatment as needed. Return to ER for worsening symptoms such as fever greater than 100.4, inability to hold fluids down, or new concerns. 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
--- NOTE | 2023-08-08 19:18 | XRR_ITS ---
PROCEDURE INFORMATION: Exam: XR Right Foot Exam date and time: 08/08/2023 7:27 PM Age: 58 years old Clinical indication: Other: RT great toe ulcer; Additional info: Great toe, diabetic callus, infection TECHNIQUE: Imaging protocol: Radiologic exam of the right foot. Views: 3 or more views. COMPARISON: CR (LOW EXM, ) 07/04/2023 11:06 PM FINDINGS: Bones/joints: Distal Achilles tendon degenerative calcification. Soft tissues: Mild subcutaneous emphysema about the 1st digit, likely related to underlying infection, negative for acute bony abnormality. Soft tissue swelling about the foot. XR/XR foot RT min 3V* [id number] IMPRESSION: 1. Mild subcutaneous emphysema about the 1st digit, likely related to underlying infection, negative for acute bony abnormality. 2. Distal Achilles tendon degenerative calcification. 3. Soft tissue swelling about the foot.
[2023-08-08 19:46] LABS: Erythrocyte Sedimentation Rate 17 mm/hr (0-15)
[2023-08-08 19:48] LABS: Basophils # 0.1 10^3/uL (0.0-0.1); Basophils % 0.7 %; Eosinophils # 0.9 10^3/uL (0.0-0.8); Eosinophils % 7.2 %; Hematocrit 51.4 % (36-47); Lymphocytes # 3.6 10^3/uL (0.8-4.8); Mean Corpuscular HGB Conc 29.6 g/dL (30-55); Mean Corpuscular Hemoglobin 26.8 pg (27-33); Mean Corpuscular Volume 90.7 fl (85-98); Mean Platelet Volume 9.5 fL (7.4-10.4); Monocytes # 0.8 10^3/uL (0.2-0.9); Monocytes % 6.5 %; Neutrophils # 6.56 10^3/uL (1.8-7.7); Neutrophils % 54.5 %; Nucleated Red Blood Cells % 0 %; Platelet Count 440 10^3/cmm (157-399); Red Blood Count 5.67 10^6/uL (3.85-5.65); Red Cell Distribution Width 15.1 % (12.1-15.1); White Blood Count 12.04 10^3/uL (3.29-11.43)
[2023-08-08 20:03] LABS: Alanine Aminotransferase 17 U/L (0-33); Albumin Level 3.9 g/dL (3.5-5.2); Alkaline Phosphatase 136 U/L (35-105); Aspartate Amino Transferase 12 U/L (0-32); Blood Urea Nitrogen 13 mg/dL (6-20); C Reactive Protein 20.8 mg/L (0.0-4.9); Calcium 9.6 mg/dL (8.5-10.5); Carbon Dioxide 21 mmol/L (22-29); Chloride 100 mmol/L (98-107); Globulin 4.4 g/dL (1.3-4.6); Glomerular Filtration Rate 86.6 mL/min (90-130); Glucose 254 mg/dL (65-115); Osmolality Calculated 287 mOsm/kg (285-295); Sodium 134 mmol/L (136-145); Total Bilirubin 0.2 mg/dL (0.15-1.2); Total Protein 8.3 g/dL (6.6-8.7)
[2023-08-08 20:06] LABS: Anion Gap 17.4 (5-19); Potassium 4.4 mmol/L (3.5-5.1)
[2023-08-08] MEDS: doxycycline 100 mg Tablet PO (20:19)
[2023-08-08] MEDS: hyDROXYzine 25 mg Capsule PO (20:19)
--- NOTE | 2023-08-09 10:26 | DCPLANNER ---
Sent Message to Office about referral for Callus on toe.
== END 2023-08-08 20:23 | disposition home or self-care (01) ==
PROVIDERS: Emergency Provider Nurse Practitioner Family; PCP Family Medicine
DX: L03.115 Cellulitis of right lower limb (principal); L84 Corns and callosities; Z79.85 Long-term (current) use of injectable non-insulin antidiabetic drugs; Z79.84 Long term (current) use of oral hypoglycemic drugs; Z79.82 Long term (current) use of aspirin; F17.210 Nicotine dependence, cigarettes, uncomplicated; I11.0 Hypertensive heart disease with heart failure; I50.9 Heart failure, unspecified; J44.9 Chronic obstructive pulmonary disease, unspecified; I25.10 Atherosclerotic heart disease of native coronary artery without angina pectoris; Z86.73 Personal history of transient ischemic attack (TIA), and cerebral infarction without residual deficits; E78.2 Mixed hyperlipidemia; I25.2 Old myocardial infarction; E11.42 Type 2 diabetes mellitus with diabetic polyneuropathy
CPT/HCPCS: 36415; 73630; 80053; 85025; 85651; 86140; 99284

== ENCOUNTER → 2023-08-15 14:25 | Outpatient (BNVA) | payer MEDICARE, MEDICAID, SELFPAY | PROVIDERS: PCP Family Medicine; Visit Provider Podiatrist Foot & Ankle Surgery | DX: E11.621 Type 2 diabetes mellitus with foot ulcer; L84 Corns and callosities; E11.628 Type 2 diabetes mellitus with other skin complications; E11.43 Type 2 diabetes mellitus with diabetic autonomic (poly)neuropathy; I73.9 Peripheral vascular disease, unspecified; I25.10 Atherosclerotic heart disease of native coronary artery without angina pectoris; L97.512 Non-pressure chronic ulcer of other part of right foot with fat layer exposed; I11.0 Hypertensive heart disease with heart failure; I50.30 Unspecified diastolic (congestive) heart failure; I63.232 Cerebral infarction due to unspecified occlusion or stenosis of left carotid arteries; E11.65 Type 2 diabetes mellitus with hyperglycemia; Z79.84 Long term (current) use of oral hypoglycemic drugs; J44.9 Chronic obstructive pulmonary disease, unspecified; F17.200 Nicotine dependence, unspecified, uncomplicated | CPT/HCPCS: 11042; 99203; 99214 ==

== ENCOUNTER → 2023-08-23 11:01 | Outpatient (BNVA) | payer MEDICARE, MEDICAID, SELFPAY | PROVIDERS: PCP Family Medicine; Visit Provider Nurse Practitioner Family | DX: E11.52 Type 2 diabetes mellitus with diabetic peripheral angiopathy with gangrene (principal); E11.621 Type 2 diabetes mellitus with foot ulcer; L97.511 Non-pressure chronic ulcer of other part of right foot limited to breakdown of skin | CPT/HCPCS: 97597; A6210 ==

== ENCOUNTER → 2023-08-25 18:30 | Outpatient (BNVA) | payer MEDICARE, MEDICAID, SELFPAY | PROVIDERS: PCP Family Medicine; Visit Provider Family Medicine | DX: B37.2 Candidiasis of skin and nail (principal); J30.9 Allergic rhinitis, unspecified; L50.9 Urticaria, unspecified; E11.9 Type 2 diabetes mellitus without complications | CPT/HCPCS: 83036 ==

== ENCOUNTER 2023-08-29 12:54 | Outpatient (CLI) | payer MEDICARE, MEDICAID, SELFPAY ==
--- NOTE | 2023-08-29 13:15 | USCV_ITS ---
Mayra Ascencio Age: 58 Gender: F : 1965 Exam Date: 08/29/2023 13:08 Ordering Phys: Marlee Olmos MD ([email or web address]) Technologist: JOSEPH Exam Location: [facility] [place] Indication: Stenosis Risk Factors: Previous Vascular Surgery: Right Brachial BP: / Left Brachial BP: / Right Left Velocity (cm/s) Spectral Plaque Velocity (cm/s) Spectral Plaque Syst/Diast Broadening Syst/Diast Broadening 22.90/ 13.70 Prox CCA 92.30 / 22.20 21.30/ 13.10 Mid CCA 64.10 / 23.80 21.80/ 16.40 Distal CCA 67.80 / 23.80 38.90/ 26.60 Prox ICA 230.10/ 38.70 30.70/ 16.40 Mid ICA 82.00 / 22.50 15.90/ 11.20 Distal ICA 93.30 / 22.50 50.60 ECA 131.80 1.69 ICA/CCA 2.49 Retrograde Vertebral Antegrade 52.20/ 20.50 cm/s 76.90/ 32.50 cm/s Mcdonough Subclavian Tri 17.40 185.0 0 FINDINGS comparison 06/08/22 CONCLUSIONS Right ICA stenosis <50%. Moderate atheromatous plaque right carotid bulb/ICA. Left ICA stenosis 70-99%. Velocities similiar to previous. Moderate atheromatous plaque left carotid bulb/ICA. Retrograde Doppler flow noted in the right vertebral artery with monophasic subclavian waveform suggesting subclavian stea. Normal antegrade Doppler flow noted in the left vertebral artery. Teto Stone MD (Electronically Signed) Final Date: 29 August 2023 14:14 S
== END 2023-08-29 12:55 | disposition home or self-care (01) ==
LOC: RAD 12:54
PROVIDERS: PCP Family Medicine; Visit Provider Internal Medicine Cardiovascular Disease
DX: I65.22 Occlusion and stenosis of left carotid artery (principal)
CPT/HCPCS: 93880

== ENCOUNTER → 2023-08-30 12:54 | Outpatient (BNVA) | payer MEDICARE, MEDICAID, SELFPAY | PROVIDERS: PCP Family Medicine; Visit Provider Nurse Practitioner Family | DX: E11.52 Type 2 diabetes mellitus with diabetic peripheral angiopathy with gangrene (principal); E11.621 Type 2 diabetes mellitus with foot ulcer; L97.511 Non-pressure chronic ulcer of other part of right foot limited to breakdown of skin | CPT/HCPCS: 97597; A6210 ==

== ENCOUNTER → 2023-09-20 13:24 | Outpatient (BNVA) | payer MEDICARE, MEDICAID, SELFPAY | PROVIDERS: PCP Family Medicine; Visit Provider Nurse Practitioner Family | DX: E11.52 Type 2 diabetes mellitus with diabetic peripheral angiopathy with gangrene (principal); E11.621 Type 2 diabetes mellitus with foot ulcer; L97.522 Non-pressure chronic ulcer of other part of left foot with fat layer exposed | CPT/HCPCS: 11042; A6210 ==

== ENCOUNTER 2023-09-21 07:00 | Outpatient (CLI) | payer MEDICARE, MEDICAID, SELFPAY ==
--- NOTE | 2023-09-21 07:00 | CT_ITS ---
WS: [id number] CT ANGIOGRAM CAROTID ARTERIES HISTORY: blockage left side TECHNIQUE: CT angiogram is performed of the carotid arteries. During arterial injection imaging is ob tained from the skull base to the aortic arch in 1.25 mm imaging. Coronal and sagittal reformats are submitted, MIP imaging also reviewed. Additional multiplanar reformats of the carotid arteries are de la cruz bmitted. NASCET criteria utilized. All CT scans at [facility] use at least one of these dose optimization techniques: automated exposure control; mA and/or kV adjustment per patient size (includ es targeted exams where dose is matched to clinical indication); or iterative reconstruction. CONTRAST: Omnipaque 350; 100 mL IV. DLP: 331.21 mGy.cm COMPARISON: Carotid ultrasound 08/29/2023 Right carotid: Common carotid artery: Arises normally from the innominate artery. No significant plaque or stenosis. Internal carotid artery: Mild intimal thickening and plaque. Overall the diameter of the RIGHT ICA is smaller than the LEFT. Increasing plaque near the carotid bifurcation. Increasing calcified plaque i n soft plaque at the bifurcation. There is a high-grade stenosis involving the proximal RIGHT ICA and the ECA. Less than 2 mm diameter of the ICA. The measurement is calculated at 41% but that is not ac curate. High-grade stenosis estimated at 80%. The distal ICA remains small caliber with increasing pl aque distally. Increasing plaque with areas of significant stenosis through the RIGHT cavernous carot id artery. External carotid artery: Small caliber external carotid artery. Moderate stenosis at the bifurcation. Left carotid: Common carotid artery: Arises normally from the aortic arch. No significant stenosis. Internal carotid artery: Intimal thickening calcified plaque at the bifurcation. Transverse diameter of the lumen is 2.6 cm. Stenosis estimated at 74%. External carotid artery: Patent. Right vertebral artery: Patent. There is a tiny filling defect in the proximal vertebral artery which could be an artifact. No occlusion. Left vertebral artery: Unremarkable. Arises normally from the left subclavian artery. Subclavian arteries: Plaque at the origin of the subclavian arteries. No high-grade stenosis. Upper thorax: Patchy opacifications in the upper lung yo. Mediastinal and hilar lymph nodes. Some of these contain calcifications. Most likely from prior granulomatous disease. Lymph nodes have been previously described. Thyroid gland: Normal. Osseous structures: Unremarkable. Skull base: Negative. IMPRESSION: 1. RIGHT cervical ICA: Increasing plaque in intimal thickening. Stenosis estimated near 80%. 2. LEFT cervical ICA: Increasing plaque and intimal thickening. Stenosis estimated at 74%. 3. Increasing plaque and atherosclerotic disease in the distal RIGHT ICA through the cavernous sinus es. Significant stenosis in the intracranial carotid arteries on the RIGHT.
[2023-09-21] MEDS: iohexol 350 mg/mL 500 mL Btl (per mL) IV (07:50)
== END 2023-09-21 07:01 | disposition home or self-care (01) ==
LOC: RAD 07:00
PROVIDERS: PCP Family Medicine; Visit Provider Internal Medicine Cardiovascular Disease
DX: I65.23 Occlusion and stenosis of bilateral carotid arteries (principal)
CPT/HCPCS: 70498; Q9967

== ENCOUNTER → 2023-09-22 14:32 | Outpatient (BNVA) | payer MEDICARE, MEDICAID, SELFPAY | PROVIDERS: PCP Family Medicine; Visit Provider Thoracic Surgery (Cardiothoracic Vascular Surgery) | DX: I65.23 Occlusion and stenosis of bilateral carotid arteries (principal); F17.210 Nicotine dependence, cigarettes, uncomplicated | CPT/HCPCS: 99213 ==

== ENCOUNTER → 2023-09-29 13:08 | Outpatient (BNVA) | payer MEDICARE, MEDICAID, SELFPAY | PROVIDERS: PCP Family Medicine; Visit Provider Nurse Practitioner Family | DX: E11.52 Type 2 diabetes mellitus with diabetic peripheral angiopathy with gangrene (principal); E11.621 Type 2 diabetes mellitus with foot ulcer; L97.511 Non-pressure chronic ulcer of other part of right foot limited to breakdown of skin | CPT/HCPCS: 97597; A6210 ==

== ENCOUNTER → 2023-10-03 13:14 | Outpatient (BNVA) | payer MEDICARE, MEDICAID, SELFPAY | PROVIDERS: PCP Family Medicine; Visit Provider Podiatrist Foot & Ankle Surgery | DX: I73.9 Peripheral vascular disease, unspecified (principal); B35.1 Tinea unguium; L84 Corns and callosities; E11.621 Type 2 diabetes mellitus with foot ulcer; E11.628 Type 2 diabetes mellitus with other skin complications; E11.43 Type 2 diabetes mellitus with diabetic autonomic (poly)neuropathy; L97.519 Non-pressure chronic ulcer of other part of right foot with unspecified severity; Z79.84 Long term (current) use of oral hypoglycemic drugs | CPT/HCPCS: 11721 ==

== ENCOUNTER → 2023-10-05 14:41 | Outpatient (BNVA) | payer MEDICARE, MEDICAID, SELFPAY | PROVIDERS: PCP Family Medicine; Visit Provider Family Medicine | DX: J44.9 Chronic obstructive pulmonary disease, unspecified (principal); E11.65 Type 2 diabetes mellitus with hyperglycemia; I10 Essential (primary) hypertension; B37.2 Candidiasis of skin and nail; E11.9 Type 2 diabetes mellitus without complications; E11.43 Type 2 diabetes mellitus with diabetic autonomic (poly)neuropathy; M54.50 Low back pain, unspecified; G40.309 Generalized idiopathic epilepsy and epileptic syndromes, not intractable, without status epilepticus; I65.22 Occlusion and stenosis of left carotid artery; F32.A Depression, unspecified | CPT/HCPCS: 80053; 80061; 84443; 85025 ==

== ENCOUNTER → 2023-10-06 11:06 | Outpatient (BNVA) | payer MEDICARE, MEDICAID, SELFPAY | PROVIDERS: PCP Family Medicine; Visit Provider Thoracic Surgery (Cardiothoracic Vascular Surgery) | DX: E11.52 Type 2 diabetes mellitus with diabetic peripheral angiopathy with gangrene (principal); E11.621 Type 2 diabetes mellitus with foot ulcer; L97.511 Non-pressure chronic ulcer of other part of right foot limited to breakdown of skin | CPT/HCPCS: 97597; A6210 ==

== ENCOUNTER → 2023-10-20 13:11 | Outpatient (BNVA) | payer MEDICARE, MEDICAID, SELFPAY | PROVIDERS: PCP Family Medicine; Visit Provider Nurse Practitioner Family | DX: E11.52 Type 2 diabetes mellitus with diabetic peripheral angiopathy with gangrene (principal); E11.621 Type 2 diabetes mellitus with foot ulcer; L97.512 Non-pressure chronic ulcer of other part of right foot with fat layer exposed | CPT/HCPCS: 11042; A6210 ==

== ENCOUNTER → 2023-10-25 13:02 | Outpatient (BNVA) | payer MEDICARE, MEDICAID, SELFPAY | PROVIDERS: PCP Family Medicine; Visit Provider Nurse Practitioner Family | DX: E11.52 Type 2 diabetes mellitus with diabetic peripheral angiopathy with gangrene (principal); E11.621 Type 2 diabetes mellitus with foot ulcer; L97.511 Non-pressure chronic ulcer of other part of right foot limited to breakdown of skin | CPT/HCPCS: 97597 ==

== ENCOUNTER → 2023-11-15 13:06 | Outpatient (BNVA) | payer MEDICARE, MEDICAID, SELFPAY | PROVIDERS: PCP Family Medicine; Visit Provider Nurse Practitioner Family | DX: E11.52 Type 2 diabetes mellitus with diabetic peripheral angiopathy with gangrene (principal); E11.621 Type 2 diabetes mellitus with foot ulcer; L97.512 Non-pressure chronic ulcer of other part of right foot with fat layer exposed | CPT/HCPCS: 11042; A6210 ==

== ENCOUNTER 2023-11-19 18:22 | Inpatient (IN) | payer MEDICARE, MEDICAID, SELFPAY ==
[2023-11-19 18:32] VITALS: BP 120/75; RESP 18; TEMP 36.6
--- NOTE | 2023-11-19 19:11 | XRR_ITS ---
PROCEDURE INFORMATION: Exam: XR Right Foot Exam date and time: 11/19/2023 7:22 PM Age: 58 years old Clinical indication: Cellulitis; Foot; Right; Patient HX: RT lower leg pain/swelling/redness; Discolored open wound to distal RT great toe; Ulcerative wound to RT achilles area. TECHNIQUE: Imaging protocol: Radiologic exam of the right foot. Views: 3 or more views. COMPARISON: CR XR foot RT min 3V* [id number] 08/08/2023 7:27 PM FINDINGS: Bones/joints: No osseous erosion, fracture or dislocation. Mild arthrosis of the tarsal joints. Moderate posterior calcaneal spur. Soft tissues: Mild soft tissue swelling in the big toe, dorsum of the foot and around the ankle. Suggestion of small wound in the plantar aspect of the big toe. Other findings: Punctate calcifications overlying the calcaneal PAD are nonspecific/dystrophic. XR/XR foot RT min 3V* [id number] IMPRESSION: 1. Soft tissue swelling in the big toe, dorsum of the foot and ankle. Suggestion of small wound in the plantar aspect big toe. 2. No osseous erosion. Further evaluation with MR may be considered if there is persistent suspicion for osteomyelitis.
--- NOTE | 2023-11-19 19:11 | XRR_ITS ---
PROCEDURE INFORMATION: Exam: XR Right Tibia and Fibula Exam date and time: 11/19/2023 7:22 PM Age: 58 years old Clinical indication: RT lower leg pain/swelling/redness; open wound to distal RT great toe; Ulcerative wound to RT achilles area; HX knee replacement x 10yrs ago. TECHNIQUE: Imaging protocol: Radiologic exam of the right tibia and fibula. Views: 2 views. COMPARISON: CT lower leg RT w con [id number] 07/04/2023 11:50 PM FINDINGS: Bones/joints: Moderate posterior calcaneal spur. Moderate dorsal tarsal spurring. No fracture or osseous erosion. Intact total knee arthroplasty. Soft tissues: Soft tissue swelling in the proximal pretibial area and subtle swelling elsewhere in the calf and around the ankle. Calcified vascular phleboliths in the anterior diaz. XR/XR tibia fibula RT 2V [id number] IMPRESSION: Mild soft tissue swelling in the leg. No acute plain radiographic osseous abnormality.
[2023-11-19 20:00] LABS: Basophils # 0.2 10^3/uL (0.0-0.1); Basophils % 0.6 %; Eosinophils # 0.2 10^3/uL (0.0-0.8); Eosinophils % 0.7 %; Hematocrit 42.3 % (36-47); Lymphocytes # 4.7 10^3/uL (0.8-4.8); Lymphocytes % 15.3 %; Mean Corpuscular HGB Conc 31.9 g/dL (30-55); Mean Corpuscular Hemoglobin 24.5 pg (27-33); Mean Corpuscular Volume 76.9 fl (85-98); Mean Platelet Volume 8.5 fL (7.4-10.4); Monocytes # 2.1 10^3/uL (0.2-0.9); Monocytes % 6.8 %; Neutrophils # 23.22 10^3/uL (1.8-7.7); Neutrophils % 74.9 %; Nucleated Red Blood Cells % 0 %; Platelet Count 667 10^3/cmm (157-399); Red Cell Distribution Width 15.5 % (12.1-15.1)
[2023-11-19 20:02] LABS: Slide Review Slide Review Perform
[2023-11-19 20:03] LABS: White Blood Count 30.98 10^3/uL (3.29-11.43)
--- NOTE | 2023-11-19 20:06 | ED_ITS ---
HPI - Wound/Laceration 2 General: Chief Complaint: Wound/Laceration Stated Complaint: Right foot swollen with red line and pain in left Time Seen by Provider: 11/19/23 18:46 History of Present Illness: Mayra Ascencio is a 58-year-old female that presents to the emergency department with left foot pain, swelling, erythema. Patient was diagnosed with a diabetic ulcer on the right great toe 3 months ago. She has been managed at the wound clinic and was seen this week. She had a debridement of the great toe. Today she woke up with expanding erythema and warmth to the right lower extremity. It extends up the anterior aspect of the extremity just below the level of the knee. She has a new ulcer to posterior aspect of the ankle. She denies fever or chills. She denies any other complaints. Patient has a medical history that includes COPD, rheumatoid arthritis, diabetes, seizures, prior CVA with stenosis of the left internal carotid artery, CAD, CHF hyperlipidemia, prior NSTEMI, hypertension Associated symptoms: Denies chills, fever(s), nausea or vomiting Review of Systems 2 General: Reports: 10 or more systems reviewed and unremarkable except in HPI and below Const: Denies: fever(s), chills, change in appetite, change in weight, fatigue or malaise Card: Denies: chest pain, palpitations, irregular heart rhythm, edema, dyspnea on exertion, orthopnea or leg pain with exertion Resp: Denies: dyspnea, productive cough, non-productive cough, wheezing, stridor or chest congestion GI: Denies: abdominal pain, nausea, vomiting, dysphagia, diarrhea, constipation, bloating, GI cramping or hematochezia : Denies: flank pain, difficulty voiding, dysuria, urinary frequency, urinary urgency, urinary hesitancy, oliguria or hematuria Musc: Reports: extremity pain and extremity swelling; Denies: neck pain, back pain, joint pain, joint swelling, joint redness, joint warmth or muscle weakness Skin/Breast: Reports: erythema and skin tenderness; Denies: rash, pruritus, photosensitivity or new lesions Neuro: Denies: headache(s), numbness in extremities, weakness in extremities, sensory changes, lack of coordination, difficulty walking, frequent falls, dizziness, confusion, Slurred speech present, difficulty communicating thoughts, seizure-like activity or involuntary movements Endo: Denies: polyuria, polydipsia or tired all the time Xavier/Lymph: Denies: easy bruising or easy bleeding [facility] ED 2 PFS: Medical History (Updated 11/19/23 @ 22:50 by SIERRA Denny) COPD (chronic obstructive pulmonary disease) Hypersensitivity pneumonitis Rheumatoid arthritis Infection of total left knee replacement Right wrist deformity History of stroke Acute exacerbation of chronic obstructive pulmonary disease (COPD) Acute encephalopathy Acute respiratory failure with hypoxia Acute alteration in mental status Sepsis Diabetes Sacral pressure ulcer Cellulitis of gluteal region Seizure disorder Hypoxemia Seizure UTI (urinary tract infection) Chronic, continuous use of opioids Seizures Acute and chronic respiratory failure with hypoxia Pneumonia Pneumonia Acute hypoxemic respiratory failure Stenosis of left internal carotid artery with cerebral infarction Diabetic foot ulcer Right arm weakness Hoarseness of voice Sepsis Numbness and tingling in both hands Urinary tract infection Chest pain Syncope Needs flu shot Carpal tunnel syndrome, right Urinary incontinence Chronic knee pain Abnormal stress test CAD (coronary artery disease) Acute exacerbation of CHF (congestive heart failure) Unstable angina COPD exacerbation Exposure to COVID-19 virus Compression fracture of L2 lumbar vertebra Right hip pain Dyspnea (HFpEF) heart failure with preserved eje ction fraction Candidiasis of vagina History of CVA (cerebrovascular accident) Elevated troponin Pericardial effusion Pressure ulcer Prosthetic joint infection Anemia Septic arthritis of knee, left Osteoarthritis of left knee History of hypoglycemic coma Obesity (BMI 35.0-39.9 without comorbidity) Peripheral sensory neuropathy due to type 2 diabetes mellitus Coronary artery disease due to type 2 diabetes mellitus Diabetes type 2, uncontrolled Neuropathy Insomnia Fibromyalgia, primary Hyperlipidemia, mixed CVA (cerebral vascular accident) Dyslipidemia Leukocytosis NSTEMI (non-ST elevated myocardial infarction) Thought to be secondary to plaque rupture. Angiogram July 04 no flow- limiting lesions, or restenosis of previous stent from April 2020 Chronic obstructive pulmonary disease, unspecified Vitamin D deficiency Type 2 diabetes mellitus with diabetic autonomic (poly)neuropathy Essential hypertension Encounter for long-term opiate analgesic use Opioid contract exists Current every day smoker Chronic pain of left knee Low back pain radiating to both legs Intervertebral disc disorder of lumbar region with myelopathy Lumbosacral spondylosis without myelopathy Osteoarthritis of spine at multiple levels Chronic left-sided low back pain Surgical History Status post left knee replacement History of coronary angiogram Angiogram April 2020 with 90% circumflex lesion, drug-eluting stent placed by Dr. Jerome Status post lumbar laminectomy S/P lumbar fusion DR. Shreya ZAYAS IN [place], [place] L4-L5, L5-S1 S/p bilateral carpal tunnel release History of arthroscopic surgery of elbow BILATERAL S/P hysterectomy S/P knee surgery RIGHT Family History Other CAD (coronary artery disease) Cancer Diabetes Social History Smoking and tobacco/nicotine status: current every day tobacco/nicotine user cigarettes Packs smoked per day: 0.5 Years cigarettes smoked: 10 [ Other cigarette details: PER PATIENT REPORT] Alcohol intake: former Substance/Drug Use: never Caregiver/support person: No Lives independently: Yes Household members: family and other Details: son Housing: Manufactured/Mobile home Marital status: Unknown Marital status details: She and son state she is not service: No Current occupational status: unemployed Pets and animals: Yes Do you think of yourself as: Straight/Heterosexual Current gender identity: Female Physical Exam 2 Const: COMMON NORMALS: no acute distress, patient oriented x3 and alert G ENERAL APPEARANCE: cooperative ORIENTATION/CONSCIOUSNESS: Yes awake, Yes oriented to person, Yes oriented to place and Yes oriented to time HENMT: COMMON NORMALS: normocephalic and atraumatic HEAD & SCALP: n ormocephalic and atraumatic FACE & SINUS: normal facial exam MOUTH: Normal oral and palatal mucosa present THROAT: posterior oropharynx normal Eye: COMMON NORMALS: Equal, round and reactive pupils present, EOMs intact bilaterally, conjunctivae normal and no scleral icterus GENERAL EYE: a ppearance normal, both eyes and all related structures ALIGNMENT: Yes alignment normal PERIORBITAL: periorbital findings normal CONJUNCTIVA: Yes conjunctivae normal PUPIL: Yes Equal, round and reactive pupils present Neck/C-Spine: COMMON NORMALS: full ROM GENERAL: Yes normal visual inspection Lymph: LYMPHATIC: no lymphadenopathy noted Chest: COMMONS NORMALS: normal inspection of the chest Breast/axilla inspection: Yes no chest deformity, asymmetry, normal contours, no nodules, masses, tenderness Resp: COMMON NORMALS: normal respiratory effort, No retractions and No use of accessory muscles EFFORT & INSPECTION: Yes able to speak in complete sentences and Yes symmetric chest movement Cardio: COMMON NORMALS: regular rate and Peripheral pulses 2+ throughout R ATE: regular rate PERIPHERAL PULSES: Peripheral pulses 2+ throughout GI: COMMON NORMALS: Normal to inspection, nondistended, normoactive bowel sounds present, Soft to palpation, non-tender and No hepatosplenomegaly present INSPECTION: Yes normal to inspection PALPATION: Yes Soft to palpation and Yes No hepatosplenomegaly present RECTAL EXAM: deferred Extremity: COMMON NORMALS: normal to inspection GENERAL: Yes normal exam except as noted Neuro: COMMON NORMALS: patient oriented x3 SENSORIUM/ORIENTATION: Yes alert, Yes oriented to person, Yes oriented to place and Yes oriented to time CRANIAL NERVES: Yes CN normal except as noted Psych: COMMON NORMALS: mental status grossly normal, Normal thought process present, cooperative, activity/motor behavior normal, denies homicidal ideation and denies suicidal ideation THOUGHT PROCESS: Normal thought process present Skin: COMMON NORMALS: no rashes or lesions noted, no wounds and turgor normal SKIN IMAGES (FEMALE): 1. Erythema warmth and drainage. She has a small necrotic appearing ulcer to dorsal aspect of the right great toe. This has cellulitis that extends across the foot and up the anterior aspect of the right lower extremity. She does have erythema in the posterior aspect of the ankle with a new ulcer. She reports it is very tender to touch 2. See note above GENERAL SKIN EXAM: no rashes or lesions noted and turgor normal Course 2 Vital Signs: Vital signs: Vital Signs Temperature 97.8 F 11/19/23 18:32 Respiratory Rate 18 11/19/23 20:29 Blood Pressure 120/75 11/19/23 18:32 MDM - Wound/Laceration Medical Decision Making Patient was evaluated in the emergency department for diabetic ulcer and cellulitis. She underwent laboratory evaluation that included a CBC, CRP, ESR, CMP. I also obtained blood cultures. Antibiotic treatment started She did undergo a debridement of the right great toe this week and has developed significant cellulitis. She underwent XR imaging which revealed no identifiable osteomyelitis; however, a MRI would likely be beneficial. The laboratory studies reveal a leukocytosis of 31,000. CRP and sed rate 51 and 153 CMP reveals hyponatremia, hypochloremia, and a creatinine of 0.9. We obtained a lactic acid that was 1.8. I also obtained a CPK, troponin series and a BnP all largely unremarkable. Blood cultures are pending We did obtain a CT of the lower extremity as well as rule out DVT. I have spoken with Dr. Zaldivar and we are going to consult Dr. Butt. Dr. Cruz will admit to [facility] Lab Data 11/19/23 19:50 11/19/23 20:35 Radiology Impressions Foot X-Ray 11/19/23 19:11 IMPRESSION: 1. Soft tissue swelling in the big toe, dorsum of the foot and ankle. Suggestion of small wound in the plantar aspect big toe. 2. No osseous erosion. Further evaluation with MR may be considered if there is persistent suspicion for osteomyelitis. Tibia/Fibula X-Ray 11/19/23 19:11 IMPRESSION: Mild soft tissue swelling in the leg. No acute plain radiographic osseous abnormality. Lower Extremity CT 11/19/23 20:36 IMPRESSION: 1. Moderate subcutaneous edema in the big toe, small chronic plantar wound similar to 07/05/2023. Increased dorsal foot edema and anterior ankle edema . The findings are compatible with cellulitis, without drainable fluid collection. 2. No osseous erosion to suggest osteomyelitis at this time. Laboratory Results WBC 30.98 10^3/uL (3.29-11.43) H* 11/19/23 19:50 RBC 5.50 10^6/uL (3.85-5.65) 11/19/23 19:50 Hgb 13.50 g/dL (11.27-16.99) 11/19/23 19:50 Hct 42.3 % (36-47) 11/19/23 19:50 MCV 76.9 fl (85-98) L 11/19/23 19:50 MCH 24.5 pg (27-33) L 11/19/23 19:50 MCHC 31.9 g/dL (30-55) 11/19/23 19:50 RDW 15.5 % (12.1-15.1) H 11/19/23 19:50 Plt Count 667 10^3/cmm (157-399) H 11/19/23 19:50 MPV 8.5 fL (7.4-10.4) 11/19/23 19:50 Neut % (Auto) 74.9 % 11/19/23 19:50 Lymph % (Auto) 15.3 % 11/19/23 19:50 [place] % (Auto) 6.8 % 11/19/23 19:50 Eos % (Auto) 0.7 % 11/19/23 19:50 Baso % (Auto) 0.6 % 11/19/23 19:50 Neut # (Auto) 23.22 10^3/uL (1.8-7.7) H 11/19/23 19:50 Lymph # (Auto) 4.7 10^3/uL (0.8-4.8) 11/19/23 19:50 [place] # (Auto) 2.1 10^3/uL (0.2-0.9) H 11/19/23 19:50 Eos # (Auto) 0.2 10^3/uL (0.0-0.8) 11/19/23 19:50 Baso # (Auto) 0.2 10^3/uL (0.0-0.1) H 11/19/23 19:50 Nucleated RBC % (auto) 0 % 11/19/23 19:50 Nucleated RBCs # 0.0 /100WBC 11/19/23 19:50 ESR 59 mm/hr (0-15) H 11/19/23 19:50 Sodium 132 mmol/L (136-145) L 11/19/23 20:35 Potassium 4.0 mmol/L (3.5-5.1) 11/19/23 20:35 Chloride 97 mmol/L (98-107) L 11/19/23 20:35 Carbon Dioxide 19 mmol/L (22-29) L 11/19/23 20:35 Anion Gap 20.0 (5-19) H 11/19/23 20:35 BUN 12 mg/dL (6-20) 11/19/23 20:35 Creatinine 0.9 mg/dL (0.5-0.9) 11/19/23 20:35 GFR Calculation 64.8 mL/min (90-130) L 11/19/23 20:35 Glucose 229 mg/dL (65-115) H 11/19/23 20:35 Calculated Osmolality 281 mOsm/kg (285-295) L 11/19/23 20:35 Lactic Acid 1.8 mmol/L (0.5-2.2) 11/19/23 19:50 Calcium 8.8 mg/dL (8.5-10.5) 11/19/23 20:35 Total Bilirubin 0.3 mg/dL (0.15-1.2) 11/19/23 20:35 AST 9 U/L (0-32) 11/19/23 20:35 ALT 14 U/L (0-33) 11/19/23 20:35 Alkaline Phosphatase 110 U/L (35-105) H 11/19/23 20:35 Creatine Kinase 61 U/L (26-192) 11/19/23 20:35 Troponin T Baseline 26 ng/L (0-10) H 11/19/23 20:35 C-Reactive Protein 153.0 mg/L (0.0-4.9) H 11/19/23 19:50 NT-Pro-B Natriuret Pep 118 pg/mL (0-125) 11/19/23 20:35 Total Protein 7.8 g/dL (6.6-8.7) 11/19/23 20:35 Albumin 3.4 g/dL (3.5-5.2) L 11/19/23 20:35 Globulin 4.4 g/dL (1.3-4.6) 11/19/23 20:35 Procalcitonin 0.17 ng/mL (0-0.5) 11/19/23 20:35 All radiology interpretation(s) finalized by discharge Discharge Plan Discharge Patient Disposition: Admitted As Inpatient Clinical Impression: Diabetic ulcer of right foot, Cellulitis, Acute hyponatremia, Diabetes, Acute hyperglycemia Condition: Stable Coding Level of Care Code ED Rehabilitation Liaison for Nahed Alcazar
[2023-11-19 20:20] LABS: Erythrocyte Sedimentation Rate 59 mm/hr (0-15)
[2023-11-19 20:29] VITALS: RESP 18
[2023-11-19] MEDS: morphine 4 mg/mL SDV 1 mL IVP (20:29)
[2023-11-19] MEDS: doxycycline 100 MG in sodium chloride 0.9% (plus) 100 ML IV (20:36)
--- NOTE | 2023-11-19 20:36 | USR_ITS ---
PROCEDURE INFORMATION: Exam: US Duplex Right Lower Extremity Veins, Limited Exam date and time: 11/19/2023 11:41 PM Age: 58 years old Clinical indication: Condition or disease; Other: Cellulitis; Additional info: Cellulitis, leukocytosis TECHNIQUE: Imaging protocol: Real-time duplex ultrasound of the right extremity with 2-D pierce scale, color Doppler flow and spectral waveform analysis including responses to compression and other maneuvers (when performed) with image documentation. Limited exam was focused on the right lower extremity veins. COMPARISON: US soft tissue/extremity [id number] 08/14/2018 2:37 PM FINDINGS: Right deep veins: Unremarkable. The common femoral, femoral, proximal profunda femoral and popliteal veins are patent without thrombus. Normal Doppler waveforms. Normal compressibility and/or augmentation response. Superficial veins: Unremarkable. Saphenofemoral junction is patent without thrombus. Soft tissues: Unremarkable. US/[place] [id number] IMPRESSION: No evidence of deep vein thrombosis.
--- NOTE | 2023-11-19 20:36 | CTR_ITS ---
PROCEDURE INFORMATION: Exam: CT Right Lower Extremity Without Contrast Exam date and time: 11/19/2023 8:44 PM Age: 58 years old Clinical indication: Cellulitis to mid tib/fib through toes. Wbc of 31k. ; Additional info: Cellulitis, leukocytosis of 31,000, TECHNIQUE: Imaging protocol: CT of the right lower extremity without contrast was performed. Radiation optimization: All CT scans at this facility use at least one of these dose optimization techniques: automated exposure control; mA and/or kV adjustment per patient size (includes targeted exams where dose is matched to clinical indication); or iterative reconstruction. COMPARISON: CT lower leg RT w con [id number] 07/04/2023 11:50 PM RADIATION DOSE METRICS: Total DLP (mGy-cm): 1462.83 FINDINGS: Bones/joints: Bilateral knee arthroplasty are partially imaged. [id number] focal soft tissue thickening overlying the posterior calcaneus with a few chronic subjacent heterotopic soft tissue calcifications but no overt large or fluid collection. No acute fracture, lytic or blastic abnormality. Mild degenerative arthrosis of the ankle in tarsal joints. No erosive arthropathy. No focal osseous erosion. Soft tissues: [id number] soft tissue swelling and dermal thickening along the anterolateral ankle, dorsum of the foot and big toe without drainable abscess formation. Small wound in the plantar aspect of the big toe. No intramuscular hematoma. No evidence of significant tenosynovitis or tear on CT. CT/CT lower leg RT wo con* [id number] IMPRESSION: 1. Moderate subcutaneous edema in the big toe, small chronic plantar wound similar to 07/05/2023. Increased dorsal foot edema and anterior ankle edema . The findings are compatible with cellulitis, without drainable fluid collection. 2. No osseous erosion to suggest osteomyelitis at this time.
[2023-11-19 20:44] LABS: Lactic Sepsis W/Reflex 1.8 mmol/L (0.5-2.2)
[2023-11-19 21:11] LABS: Troponin(5th) Baseline 26 ng/L (0-10)
[2023-11-19 21:27] LABS: NT Pro B Type Natriuretic Pept 118 pg/mL (0-125); Procalcitonin 0.17 ng/mL (0-0.5)
[2023-11-19 21:38] LABS: Alanine Aminotransferase 14 U/L (0-33); Albumin Level 3.4 g/dL (3.5-5.2); Alkaline Phosphatase 110 U/L (35-105); Aspartate Amino Transferase 9 U/L (0-32); Blood Urea Nitrogen 12 mg/dL (6-20); Calcium 8.8 mg/dL (8.5-10.5); Carbon Dioxide 19 mmol/L (22-29); Chloride 97 mmol/L (98-107); Creatine Phosphokinase 61 U/L (26-192); Creatinine Clr Calc Pharmacy 78.4664; Globulin 4.4 g/dL (1.3-4.6); Glomerular Filtration Rate 64.8 mL/min (90-130); Glucose 229 mg/dL (65-115); Osmolality Calculated 281 mOsm/kg (285-295); Sodium 132 mmol/L (136-145); Total Bilirubin 0.3 mg/dL (0.15-1.2); Total Protein 7.8 g/dL (6.6-8.7)
--- NOTE | 2023-11-19 22:38 | ECG_ITS ---
[facility] Test Date: 2023-11-19 Pat Name: Mayra Ascencio Department: Room: Gender: Female Information Services Tech: : 1965 Requested By: Ximena Yanes Order Number: [id number] Ashlee MD: Brad Lyles M.D. Measurements Intervals [place] Rate: 109 P: 18 CO: 185 QRS: -1 QRSD: 90 T: 67 QT: 343 QTc: 462 Interpretive Statements SINUS TACHYCARDIA NONSPECIFIC ST & T-WAVE ABNORMALITY Compared to ECG 08/18/2022 13:24:09 No significant changes Electronically Signed On 11-19-2023 23:21:40 IT INFRASTRUCTURE SPECIALIST by Brad Lyles M.D. [id number]
--- NOTE | 2023-11-19 22:43 | PM.HP ---
Providers/Chief Complaint Primary Care Provider: Laurel Eagle MD Chief Complaint: Right foot swollen with red line and pain in left History of Present Illness Mayra Ascencio is a 58 year old female with a past medical history of hypertension, hyperlipidemia, CAD, CHF, obesity, COPD on 2 L, insulin-dependent type 2 diabetes mellitus, history of stenting in 2020, history of left hemispheric CVA with right hemiparesis in August 2021, history of bilateral carotid artery disease at cervical portions, there is plans on possible endarterectomy, smoking, who presents to [facility] due to right lower extremity swelling, erythema, she denies any fevers, chills, no cough, she tells me that she saw wound care and they did debridement of her diabetic ulcer right great toe, she tells me that today she started developing significant erythema,'s swelling, warmth extending throughout the forefoot to the ankle up to mid tibia, Review of Systems Const: Denies: fever(s) Card: Denies: chest pain Resp: Denies: dyspnea GI: Denies: abdominal pain Medications/Allergies Home Medications Medication Instructions Recorded Confirmed Last Taken Type blood sugar diagnostic (Blood #100 ea 12/27/22 10/05/23 Unknown Rx Glucose Test strips) blood-glucose meter #1 ea 12/27/22 10/05/23 Unknown Rx lancets #100 ea 12/27/22 10/05/23 Unknown Rx ondansetron 4 mg disintegrating 4 mg PO Q6H PRN Nausea And Vomiting 07/05/23 10/05/23 Unknown History tablet tramadol 50 mg tablet 50 mg PO Q8H PRN pain #20 tabs 08/01/23 10/05/23 Unknown Rx aspirin 81 mg tablet,delayed 81 mg PO QAM #30 tabs 08/05/23 10/05/23 Unknown Rx release blood sugar diagnostic (Blood #50 ea 08/10/23 10/05/23 Unknown Rx Glucose Test strips) nitroglycerin 0.4 mg sublingual 0.4 mg sublingual Q5M PRN Chest 08/15/23 10/05/23 Unknown Rx tablet (Nitrostat) Pain #30 tabs diphenhydramine HCl 25 mg tablet 50 mg (2 x 25 mg) PO BID PRN 08/25/23 10/05/23 Unknown Rx (Allergy (diphenhydramine)) allergy symptoms #90 tabs fluconazole 150 mg tablet See Rx Instructions .Route 08/25/23 10/05/23 Unknown Rx .COMPLEX 14 days #5 tabs albuterol sulfate 90 mcg/actuation 2 puff inhalation Q6H PRN 10/05/23 10/05/23 Unknown Rx aerosol inhaler shortness of breath or wheezing #8.5 grams atorvastatin 80 mg tablet 80 mg PO QAM #30 tabs 10/05/23 10/05/23 Unknown Rx dulaglutide 0.75 mg/0.5 mL 0.75 mg (0.5 mL) SUBCUT Q7D #1 mL 10/05/23 10/05/23 Unknown Rx subcutaneous pen injector duloxetine 60 mg capsule,delayed 60 mg PO DAILY #30 caps 10/05/23 10/05/23 Unknown Rx release empagliflozin 25 mg tablet 25 mg PO DAILY #30 tabs 10/05/23 10/05/23 Unknown Rx (Jardiance) ezetimibe 10 mg tablet 10 mg PO DAILY #30 tabs 10/05/23 10/05/23 Unknown Rx furosemide 40 mg tablet 40 mg PO DAILY PRN Edema #30 tabs 10/05/23 10/05/23 Unknown Rx hydroxyzine HCl 25 mg tablet 25 mg PO Q6H PRN itching #20 tabs 10/05/23 10/05/23 Unknown Rx insulin detemir U-100 100 unit/mL 100 unit SUBCUT DAILY #15 mL 10/05/23 10/05/23 Unknown Rx (3 mL) subcutaneous pen (Levemir FlexPen) isosorbide mononitrate 60 mg 30 mg (1/2 x 60 mg) PO BID #60 tabs 10/05/23 10/05/23 Unknown Rx tablet,extended release 24 hr levetiracetam 500 mg tablet 500 mg PO BID #60 tabs 10/05/23 10/05/23 Unknown Rx losartan 50 mg tablet 50 mg PO DAILY@0800 #30 tabs 10/05/23 10/05/23 Unknown Rx metformin 500 mg tablet,extended 500 mg PO BID #60 tabs 10/05/23 10/05/23 Unknown Rx release 24 hr metoprolol succinate 25 mg 12.5 mg (1/2 x 25 mg) PO QAM #15 10/05/23 10/05/23 Unknown Rx tablet,extended release 24 hr tabs pantoprazole 40 mg tablet,delayed 40 mg PO QAM #30 tabs 10/05/23 10/05/23 Unknown Rx release pen needle, diabetic 31 gauge x #100 ea 10/05/23 10/05/23 Unknown Rx 5/16 (Comfort EZ Pen [place]) pen needle, diabetic 32 gauge x #100 ea 10/05/23 10/05/23 Unknown Rx 5/32 (Comfort EZ Pen [place]) quetiapine 200 mg tablet 200 mg PO BEDTIME #30 tabs 10/05/23 10/05/23 Unknown Rx ticagrelor 90 mg tablet (Brilinta) 90 mg PO BID #180 tabs 10/05/23 10/05/23 Unknown Rx tiotropium bromide 18 mcg capsule 1 cap inhalation DAILY 30 days #30 10/05/23 10/05/23 Unknown Rx with inhalation device (Spiriva inhalations with HandiHaler) clotrimazole-betamethasone 1 See Rx Instructions .Route 11/02/23 Unknown Rx %-0.05 % topical cream .COMPLEX #45 grams nystatin 100,000 unit/gram topical 1 applic topical BID #30 grams 11/02/23 Unknown Rx cream Allergies Allergy/AdvReac Type Severity Reaction Status Date / Time fentanyl Allergy Unknown ALGY-Difficulty Verified 10/05/23 13:52 Breathing adhesive Allergy Unknown Verified 10/05/23 13:52 cephalexin [From Keflex] Allergy ADR-Itching Verified 10/05/23 13:52 clindamycin Allergy ADR-Itching Verified 10/05/23 13:52 codeine Allergy Unknown Verified 10/05/23 13:52 hydrocodone Allergy Unknown Verified 10/05/23 13:52 latex Allergy ALGY-Swell Verified 10/05/23 13:52 Lip/Tongue/Throat naproxen [From Naprosyn] Allergy Unknown Verified 10/05/23 13:52 nut - unspecified Allergy ALGY-Anaphy Verified 10/05/23 13:52 laxis oxycodone [From Roxicodone] Allergy ADR-Muscle Verified 10/05/23 13:52 Pain Penicillins Allergy Unknown Verified 10/05/23 13:52 tramadol Allergy ADR-Itching Verified 10/05/23 13:52 PFSH Acute PFSH: Medical History (Updated 11/19/23 @ 22:58 by Kehinde Cruz MD) COPD (chronic obstructive pulmonary disease) Hypersensitivity pneumonitis Rheumatoid arthritis Infection of total left knee replacement Right wrist deformity History of stroke Acute exacerbation of chronic obstructive pulmonary disease (COPD) Acute encephalopathy Acute respiratory failure with hypoxia Acute alteration in mental status Sepsis Diabetes Sacral pressure ulcer Cellulitis of gluteal region Seizure disorder Hypoxemia Seizure UTI (urinary tract infection) Chronic, continuous use of opioids Seizures Acute and chronic respiratory failure with hypoxia Pneumonia Pneumonia Acute hypoxemic respiratory failure Stenosis of left internal carotid artery with cerebral infarction Diabetic foot ulcer Right arm weakness Hoarseness of voice Sepsis Numbness and tingling in both hands Urinary tract infection Chest pain Syncope Needs flu shot Carpal tunnel syndrome, right Urinary incontinence Chronic knee pain Abnormal stress test CAD (coronary artery disease) Acute exacerbation of CHF (congestive heart failure) Unstable angina COPD exacerbation Exposure to COVID-19 virus Compression fracture of L2 lumbar vertebra Right hip pain Dyspnea (HFpEF) heart failure with preserved ejection fraction Candidiasis of vagina History of CVA (cerebrovascular accident) Elevated troponin Pericardial effusion Pressure ulcer Prosthetic joint infection Anemia Septic arthritis of knee, left Osteoarthritis of left knee History of hypoglycemic coma Obesity (BMI 35.0-39.9 without comorbidity) Peripheral sensory neuropathy due to type 2 diabetes mellitus Coronary artery disease due to type 2 diabetes mellitus Diabetes type 2, uncontrolled Neuropathy Insomnia Fibromyalgia, primary Hyperlipidemia, mixed CVA (cerebral vascular accident) Dyslipidemia Leukocytosis NSTEMI (non-ST elevated myocardial infarction) Thought to be secondary to plaque rupture. Angiogram July 04 no flow-limiting lesions, or restenosis of previous stent from April 2020 Chronic obstructive pulmonary disease, unspecified Vitamin D deficiency Type 2 diabetes mellitus with diabetic autonomic (poly)neuropathy Essential hypertension Encounter for long-term opiate analgesic use Opioid contract exists Current every day smoker Chronic pain of left knee Low back pain radiating to both legs Intervertebral disc disorder of lumbar region with myelopathy Lumbosacral spondylosis without myelopathy Osteoarthritis of spine at multiple levels Chronic left-sided low back pain Surgical History Status post left knee replacement History of coronary angiogram Angiogram April 2020 with 90% circumflex lesion, drug-eluting stent placed by Dr. Jerome Status post lumbar laminectomy S/P lumbar fusion DR. Shreya ZAYAS IN [place] L4-L5, L5-S1 S/p bilateral carpal tunnel release History of arthroscopic surgery of elbow BILATERAL S/P hysterectomy S/P knee surgery RIGHT Family History Other CAD (coronary artery disease) Cancer Diabetes Social History Smoking and tobacco/nicotine status: current every day tobacco/nicotine user cigarettes Packs smoked per day: 0.5 Years cigarettes smoked: 10 [ Other cigarette details: PER PATIENT REPORT] Alcohol intake: former Substance/Drug Use: never Caregiver/support person: No Lives independently: Yes Household members: family and other Details: son Housing: Manufactured/Mobile home Marital status: Unknown Marital status details: She and son state she is not service: No Current occupational status: unemployed Pets and animals: Yes Do you think of yourself as: Straight/Heterosexual Current gender identity: Female Vitals/I&O/Wt Last Vital Signs Temp 97.8 F 11/19/23 18:32 Resp 18 11/19/23 20:29 BP 120/75 11/19/23 18:32 Weight last 48 hrs Weight 92.533 kg Physical Exam Const: COMMON NORMALS: no acute distress and patient oriented x3 HENMT: COMMON NORMALS: normocephalic HEAD & SCALP: normocephalic Resp: COMMON NORMALS: normal respiratory effort, No retractions, No use of accessory muscles and clear to auscultation bilaterally AUSCULTATION: clear to auscultation bilaterally Cardio: COMMON NORMALS: regular rate, regular rhythm, S1 normal heart sound present and S2 normal heart sound present RATE: regular rate RHYTHM: regular rhythm HEART SOUNDS: S1 normal heart sound present and S2 normal heart sound present GI: COMMON NORMALS: Normal to inspection, nondistended, normoactive bowel sounds present, Soft to palpation and non-tender Extremity: COMMON NORMALS: no calf tenderness and no pedal edema Neuro: COMMON NORMALS: patient oriented x3 Psych: COMMON NORMALS: mental status grossly normal Skin: NARRATIVE SKIN EXAM: Erythema, swelling, extending from right great toe, does have area of black necrotic eschar right great toe, erythema extending to the midfoot to the hindfoot, at the ankle mid tibia Data 11/19/23 19:50 11/19/23 20:35 Micro: Microbiology 11/19/23 19:45 Blood Culture - Preliminary Blood SPECIMEN COLLECTED 11/19/23 19:50 Blood Culture - Preliminary Blood SPECIMEN COLLECTED A&P Assessment and plan (1) Cellulitis of right foot: (2) Diabetic ulcer of foot associated with diabetes mellitus due to underlying condition, limited to breakdown of skin: (3) CAD (coronary artery disease): Qualifiers: Coronary Disease-Associated Artery/Lesion type: [place] artery [place] vs. transplanted heart: [place] heart Associated angina: without angina Qualified Code(s): I25.10 - Atherosclerotic heart disease of [place] coronary artery without angina pectoris (4) PAD (peripheral artery disease): (5) Carotid stenosis, left: (6) 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: (7) Hyperlipidemia, mixed: (8) Type 2 diabetes mellitus with diabetic autonomic (poly)neuropathy: (9) NSTEMI (non-ST elevated myocardial infarction): Plan Right foot diabetic ulcer, right great toe, with extensive cellulitis, evidence of sepsis -wbc 30.98 -esr 59 -crp 153 -nstemi -sepsis criteria, tachycardia, wbc elevation, CT/CT lower leg RT wo con* [id number] IMPRESSION: 1. Moderate subcutaneous edema in the big toe, small chronic plantar wound similar to 07/05/2023. Increased dorsal foot edema and anterior ankle edema . The findings are compatible with cellulitis, without drainable fluid collection. 2. No osseous erosion to suggest osteomyelitis at this time. plan: -consult podiatry -vancomycin -meropenem -blood culture -npo midnight -nstemi, continue aspirin, brillinta, -bilateral carotid disease -full code -lovenox for dvt prophlaxis Attestations Medical Necessity Statement*: atient requires hospitalization for right foot diabetic ulcer with cellulitis with evidence of sepsis, inpatient, greater than 2 midnights Diagnoses Cellulitis of right foot L03.115 Diabetic ulcer of foot associated with diabetes mellitus due to underlying condition, limited to breakdown of skin E08.621; L97.501 Coronary artery disease involving [place] coronary artery of [place] heart without angina pectoris I25.10 Coronary Disease-Associated Artery/Lesion type: [place] artery [place] vs. transplanted heart: [place] heart Associated angina: without angina PAD (peripheral artery disease) I73.9 Carotid stenosis, left I65.22 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 I65.23 Hyperlipidemia, mixed E78.2 Type 2 diabetes mellitus with diabetic autonomic (poly)neuropathy E11.43 NSTEMI (non-ST elevated myocardial infarction) I21.4
[2023-11-19] MEDS: vancomycin 2,000 MG/400 ML PIGGYBACK 200 MG IV (22:48)
[2023-11-19 22:50] LABS: Troponin 5 2HR 37.42 ng/L (0-10)
[2023-11-19 22:52] LABS: Troponin 5 2HR Delta 11.42 ABS# (0-10)
[2023-11-19 23:01] LABS: Chol HDL Ratio 4.05 mg/dL (0.0-4.40); Cholesterol 166 mg/dL (0-200); HDL Cholesterol 41 mg/dL (60-100); LDL Cholesterol Calculated 98 mg/dL (50-129); LDL HDL Ratio 2.39 RATIO (0.00-3.22); Triglycerides 135 mg/dL (0-150)
[2023-11-19 23:11] LABS: Estmated Average Glucose 232; Hemoglobin A1C 9.7 % (4.0-6.0)
[2023-11-19 23:16] VITALS: BP 109/77; PULSE 112; RESP 18; O2SAT 97
[2023-11-19 23:21] LABS: Thyroid Stimulating Hormone 0.59 uIU/mL (0.27-4.20)
[2023-11-19 23:29] VITALS: O2SAT 92
[2023-11-19 23:32] LABS: Add Urine Microscopic? YES; Bilirubin Urine Neg (Negative); Blood Urine Neg (Negative); Glucose Urine UA 4+ (Normal); Ketones Urine 1+ (Negative); Leukocyte Esterase Urine Trace (Negative); Nitrate Urine Positive (Negative); Protein Urine Trace (Negative); Urine Appearance Hazy (CLEAR); Urine Color Yellow (Yellow); Urobilinogen Urine Norm (Negative); pH Urine 5 (5-7)
[2023-11-19 23:34] LABS: RBC Urine 0-4 /hpf (0-2); Squamous Epithelial Cell Urine 0-4 /hpf (0-5); WBC Urine 25-40 /hpf (0-5)
[2023-11-19 23:35] LABS: Add Urine Culture? Yes; Amorphous Sediment Urine 2+ /hpf; Bacteria Urine 2+ /hpf; Mucus Urine TRACE /hpf
[2023-11-19 23:53] VITALS: BP 109/77; PULSE 112; RESP 18; O2SAT 97
[2023-11-20] VITALS (14 sets, daily range): BP systolic 76–118; BP diastolic 44–74; PULSE 85–110; RESP 16–20; TEMP 36.5–37.6; O2SAT 91–97; BMI 35.1
[2023-11-20] MEDS: quetiapine 100 mg Tablet 200 MG PO ×2 (00:21→20:02)
[2023-11-20] MEDS: sodium chloride 0.9% 1,000 ML 75 ML IV ×2 (00:23→14:55)
[2023-11-20] MEDS: meropenem 1,000 MG in sodium chloride 0.9% (plus) 50 ML 100 MG IV ×3 (00:24→15:00)
[2023-11-20] MEDS: morphine 4 mg/mL SDV 1 mL 2 MG IVP ×4 (00:27→20:03)
[2023-11-20 03:01] LABS: Basophils # 0.1 10^3/uL (0.0-0.1); Basophils % 0.5 %; Eosinophils # 0.2 10^3/uL (0.0-0.8); Hematocrit 38.2 % (36-47); Lymphocytes # 3.6 10^3/uL (0.8-4.8); Lymphocytes % 15.4 %; Mean Corpuscular HGB Conc 31.9 g/dL (30-55); Mean Corpuscular Hemoglobin 24.5 pg (27-33); Mean Corpuscular Volume 76.9 fl (85-98); Mean Platelet Volume 8.9 fL (7.4-10.4); Monocytes # 1.7 10^3/uL (0.2-0.9); Monocytes % 7.5 %; Neutrophils # 17.11 10^3/uL (1.8-7.7); Nucleated Red Blood Cells % 0 %; Platelet Count 559 10^3/cmm (157-399); Red Blood Count 4.97 10^6/uL (3.85-5.65); Red Cell Distribution Width 15.4 % (12.1-15.1); White Blood Count 23.15 10^3/uL (3.29-11.43)
[2023-11-20 03:25] LABS: Alanine Aminotransferase 11 U/L (0-33); Albumin Level 3.4 g/dL (3.5-5.2); Alkaline Phosphatase 110 U/L (35-105); Aspartate Amino Transferase 7 U/L (0-32); Blood Urea Nitrogen 17 mg/dL (6-20); Carbon Dioxide 20 mmol/L (22-29); Chloride 99 mmol/L (98-107); Creatinine Clr Calc Pharmacy 71.8903; Globulin 3.3 g/dL (1.3-4.6); Glomerular Filtration Rate 57.4 mL/min (90-130); Glucose 297 mg/dL (65-115); Magnesium 1.7 mg/dL (1.7-2.3); Osmolality Calculated 289 mOsm/kg (285-295); Phosphorus 3.8 mg/dL (2.5-4.5); Sodium 133 mmol/L (136-145); Total Bilirubin 0.2 mg/dL (0.15-1.2); Total Protein 6.7 g/dL (6.6-8.7); Troponin 5 6HR 35.96 ng/L (0-10); Troponin 5 6HR Delta 9.96 ng/L (0-12)
--- NOTE | 2023-11-20 03:57 | ECG_ITS ---
[facility] Test Date: 2023-11-20 Pat Name: Mayra Ascencio Department: Room: 255 Gender: Female Manipulative Therapy Specialist: : [id number] Requested By: Ximena Yanes Order Number: [id number] Ashlee MD: Brad Lyles M.D. Measurements Intervals [place] Rate: 112 P: 32 CA: 197 QRS: -6 QRSD: 97 T: 55 QT: 337 QTc: 462 Interpretive Statements SINUS TACHYCARDIA NONSPECIFIC ST & T-WAVE ABNORMALITY Compared to ECG 11/19/2023 22:35:44 No significant changes Electronically Signed On 11-20-2023 10:59:00 [employer]OMM[employer]ER by Brad Lyles M.D. [id number]
[2023-11-20 06:57] LABS: Glucose Point of Care 273 mg/dL (70-110)
--- NOTE | 2023-11-20 07:47 | PM.CONSULT ---
Providers/Reason For Consult Consulting Physician/Specialty*: Luis Butt D.P.M./podiatry Reason for Consult*: Diabetic foot ulcer with cellulitis right lower extremity. Attending Physician: Kehinde Cruz MD Primary Care Provider: Laurel Eagle MD History of Present Illness History of Present Illness Mayra Ascencio is a 58 year old female presented to the emergency department due to increased pain, swelling and streaking redness from a wound on her right great toe over the past 2 days with worsening of symptoms. History of right great toe wound which has been managed at the wound care clinic with trend of improvement, last visit 11/15/2023 her wound was stable. She states that the past 2 days she had an abrupt onset of streaking redness and pain at the right leg extending from her wound. Review of Systems General: Reports: 10 or more systems reviewed and unremarkable except in HPI and below Const: Denies: fever(s) or chills Eyes: Denies: change in vision Card: Denies: chest pain or palpitations Resp: Denies: dyspnea or productive cough GI: Denies: abdominal pain, nausea or vomiting : Denies: flank pain Musc: Reports: extremity swelling, joint stiffness and deformity Skin/Breast: Reports: erythema, sores, changes in skin color, dry skin, nail changes and change in hair Neuro: Reports: numbness in extremities, sensory changes and difficulty walking Psych: Denies: suicidal ideation Endo: Denies: change in body appearance Xavier/Lymph: Denies: tender lymph nodes Medications/Allergies Home Medications Medication Instructions Recorded Confirmed Last Taken Type blood sugar diagnostic (Blood #100 ea 12/27/22 10/05/23 Unknown Rx Glucose Test strips) blood-glucose meter #1 ea 12/27/22 10/05/23 Unknown Rx lancets #100 ea 12/27/22 10/05/23 Unknown Rx ondansetron 4 mg disintegrating 4 mg PO Q6H PRN Nausea And Vomiting 07/05/23 10/05/23 Unknown History tablet tramadol 50 mg tablet 50 mg PO Q8H PRN pain #20 tabs 08/01/23 10/05/23 Unknown Rx aspirin 81 mg tablet,delayed 81 mg PO QAM #30 tabs 08/05/23 10/05/23 Unknown Rx release blood sugar diagnostic (Blood #50 ea 08/10/23 10/05/23 Unknown Rx Glucose Test strips) nitroglycerin 0.4 mg sublingual 0.4 mg sublingual Q5M PRN Chest 08/15/23 10/05/23 Unknown Rx tablet (Nitrostat) Pain #30 tabs diphenhydramine HCl 25 mg tablet 50 mg (2 x 25 mg) PO BID PRN 08/25/23 10/05/23 Unknown Rx (Allergy (diphenhydramine)) allergy symptoms #90 tabs fluconazole 150 mg tablet See Rx Instructions .Route 08/25/23 10/05/23 Unknown Rx .COMPLEX 14 days #5 tabs albuterol sulfate 90 mcg/actuation 2 puff inhalation Q6H PRN 10/05/23 10/05/23 Unknown Rx aerosol inhaler shortness of breath or wheezing #8.5 grams atorvastatin 80 mg tablet 80 mg PO QAM #30 tabs 10/05/23 10/05/23 Unknown Rx dulaglutide 0.75 mg/0.5 mL 0.75 mg (0.5 mL) SUBCUT Q7D #1 mL 10/05/23 10/05/23 Unknown Rx subcutaneous pen injector duloxetine 60 mg capsule,delayed 60 mg PO DAILY #30 caps 10/05/23 10/05/23 Unknown Rx release empagliflozin 25 mg tablet 25 mg PO DAILY #30 tabs 10/05/23 10/05/23 Unknown Rx (Jardiance) ezetimibe 10 mg tablet 10 mg PO DAILY #30 tabs 10/05/23 10/05/23 Unknown Rx furosemide 40 mg tablet 40 mg PO DAILY PRN Edema #30 tabs 10/05/23 10/05/23 Unknown Rx hydroxyzine HCl 25 mg tablet 25 mg PO Q6H PRN itching #20 tabs 10/05/23 10/05/23 Unknown Rx insulin detemir U-100 100 unit/mL 100 unit SUBCUT DAILY #15 mL 10/05/23 10/05/23 Unknown Rx (3 mL) subcutaneous pen (Levemir FlexPen) isosorbide mononitrate 60 mg 30 mg (1/2 x 60 mg) PO BID #60 tabs 10/05/23 10/05/23 Unknown Rx tablet,extended release 24 hr levetiracetam 500 mg tablet 500 mg PO BID #60 tabs 10/05/23 10/05/23 Unknown Rx losartan 50 mg tablet 50 mg PO DAILY@0800 #30 tabs 10/05/23 10/05/23 Unknown Rx metformin 500 mg tablet,extended 500 mg PO BID #60 tabs 10/05/23 10/05/23 Unknown Rx release 24 hr metoprolol succinate 25 mg 12.5 mg (1/2 x 25 mg) PO QAM #15 10/05/23 10/05/23 Unknown Rx tablet,extended release 24 hr tabs pantoprazole 40 mg tablet,delayed 40 mg PO QAM #30 tabs 10/05/23 10/05/23 Unknown Rx release pen needle, diabetic 31 gauge x #100 ea 10/05/23 10/05/23 Unknown Rx 5/16 (Comfort EZ Pen [place]) pen needle, diabetic 32 gauge x #100 ea 10/05/23 10/05/23 Unknown Rx 5/32 (Comfort EZ Pen [place]) quetiapine 200 mg tablet 200 mg PO BEDTIME #30 tabs 10/05/23 10/05/23 Unknown Rx ticagrelor 90 mg tablet (Brilinta) 90 mg PO BID #180 tabs 10/05/23 10/05/23 Unknown Rx tiotropium bromide 18 mcg capsule 1 cap inhalation DAILY 30 days #30 10/05/23 10/05/23 Unknown Rx with inhalation device (Spiriva inhalations with HandiHaler) clotrimazole-betamethasone 1 See Rx Instructions .Route 11/02/23 Unknown Rx %-0.05 % topical cream .COMPLEX #45 grams nystatin 100,000 unit/gram topical 1 applic topical BID #30 grams 11/02/23 Unknown Rx cream Allergies Allergy/AdvReac Type Severity Reaction Status Date / Time fentanyl Allergy Unknown ALGY-Difficulty Verified 10/05/23 13:52 Breathing adhesive Allergy Unknown Verified 10/05/23 13:52 cephalexin [From Keflex] Allergy ADR-Itching Verified 10/05/23 13:52 clindamycin Allergy ADR-Itching Verified 10/05/23 13:52 codeine Allergy Unknown Verified 10/05/23 13:52 hydrocodone Allergy Unknown Verified 10/05/23 13:52 latex Allergy ALGY-Swell Verified 10/05/23 13:52 Lip/Tongue/Throat naproxen [From Naprosyn] Allergy Unknown Verified 10/05/23 13:52 nut - unspecified Allergy ALGY-Anaphy Verified 10/05/23 13:52 laxis oxycodone [From Roxicodone] Allergy ADR-Muscle Verified 10/05/23 13:52 Pain Penicillins Allergy Unknown Verified 10/05/23 13:52 tramadol Allergy ADR-Itching Verified 10/05/23 13:52 Current Medications Generic Name Dose Route Start Last Admin Trade Name Freq PRN Reason Stop Dose Admin Meropenem 1,000 mg/ Sodium 50 mls @ 100 mls/hr 11/19/23 23:00 11/20/23 02:03 Chloride IV Infused Q8H YUSUF Infusion Protocol Sodium Chloride 1,000 mls @ 75 mls/hr 11/19/23 22:45 11/20/23 00:23 Sodium Chloride 0.9% IV 75 mls/hr .[id number] YUSUF Administration Vancomycin/PEG/NADA/Lysine/Water 1,250 mg in 250 mls @ 166.667 mls/hr 11/20/23 00:00 11/20/23 00:12 Vancocin IV Not Given Q12H YUSUF Morphine Sulfate 2 mg 11/19/23 22:36 11/20/23 00:27 Morphine 4 Mg/Ml Sdv 1 Ml IVP 2 mg Q4H PRN Administration SEVERE PAIN Pantoprazole Sodium 40 mg 11/20/23 06:00 11/20/23 05:[address] 40 Mg Tablet PO Not Given QAM YUSUF Quetiapine Fumarate 200 mg 11/19/23 23:15 11/20/23 00:21 Quetiapine 100 Mg Tablet PO 200 mg BEDTIME YUSUF Administration PFSH Acute PFSH: Medical History (Updated 11/20/23 @ 08:06 by Luis Butt DPM) COPD (chronic obstructive pulmonary disease) Hypersensitivity pneumonitis Rheumatoid arthritis Infection of total left knee replacement Right wrist deformity History of stroke Acute exacerbation of chronic obstructive pulmonary disease (COPD) Acute encephalopathy Acute respiratory failure with hypoxia Acute alteration in mental status Sepsis Diabetes Sacral pressure ulcer Cellulitis of gluteal region Seizure disorder Hypoxemia Seizure UTI (urinary tract infection) Chronic, continuous use of opioids Seizures Acute and chronic respiratory failure with hypoxia Pneumonia Pneumonia Acute hypoxemic respiratory failure Stenosis of left internal carotid artery with cerebral infarction Diabetic foot ulcer Right arm weakness Hoarseness of voice Sepsis Numbness and tingling in both hands Urinary tract infection Chest pain Syncope Needs flu shot Carpal tunnel syndrome, right Urinary incontinence Chronic knee pain Abnormal stress test CAD (coronary artery disease) Acute exacerbation of CHF (congestive heart failure) Unstable angina COPD exacerbation Exposure to COVID-19 virus Compression fracture of L2 lumbar vertebra Right hip pain Dyspnea (HFpEF) heart failure with preserved ejection fraction Candidiasis of vagina History of CVA (cerebrovascular accident) Elevated troponin Pericardial effusion Pressure ulcer Prosthetic joint infection Anemia Septic arthritis of knee, left Osteoarthritis of left knee History of hypoglycemic coma Obesity (BMI 35.0-39.9 without comorbidity) Peripheral sensory neuropathy due to type 2 diabetes mellitus Coronary artery disease due to type 2 diabetes mellitus Diabetes type 2, uncontrolled Neuropathy Insomnia Fibromyalgia, primary Hyperlipidemia, mixed CVA (cerebral vascular accident) Dyslipidemia Leukocytosis NSTEMI (non-ST elevated myocardial infarction) Thought to be secondary to plaque rupture. Angiogram July 04 no flow-limiting lesions, or restenosis of previous stent from April 2020 Chronic obstructive pulmonary disease, unspecified Vitamin D deficiency Type 2 diabetes mellitus with diabetic autonomic (poly)neuropathy Essential hypertension Encounter for long-term opiate analgesic use Opioid contract exists Current every day smoker Chronic pain of left knee Low back pain radiating to both legs Intervertebral disc disorder of lumbar region with myelopathy Lumbosacral spondylosis without myelopathy Osteoarthritis of spine at multiple levels Chronic left-sided low back pain Surgical History Status post left knee replacement History of coronary angiogram Angiogram April 2020 with 90% circumflex lesion, drug-eluting stent placed by Dr. Jerome Status post lumbar laminectomy S/P lumbar fusion DR. Shreya ZAYAS IN [place], [place] L4-L5, L5-S1 S/p bilateral carpal tunnel release History of arthroscopic surgery of elbow BILATERAL S/P hysterectomy S/P knee surgery RIGHT Family History Other CAD (coronary artery disease) Cancer Diabetes Social History Smoking and tobacco/nicotine status: current every day tobacco/nicotine user cigarettes Packs smoked per day: 0.5 Years cigarettes smoked: 10 [ Other cigarette details: PER PATIENT REPORT] Alcohol intake: former Substance/Drug Use: never Caregiver/support person: No Lives independently: Yes Household members: family and other Details: son Housing: Manufactured/Mobile home Marital status: Unknown Marital status details: She and son state she is not service: No Current occupational status: unemployed Pets and animals: Yes Do you think of yourself as: Straight/Heterosexual Current gender identity: Female Vitals/I&O/Wt Last Vital Signs Temp 99.7 F H 11/20/23 04:40 Pulse 110 H 11/20/23 04:40 Resp 18 11/20/23 04:40 BP 115/61 11/20/23 04:40 Pulse Ox 94 11/20/23 04:40 O2 Del Method Nasal Cannula 11/20/23 04:40 O2 Flow Rate 2 11/20/23 04:40 11/19/23 11/20/23 11/20/23 22:59 06:59 14:59 Intake Total 1030 / 1030 Output Total 1550 / 1550 Balance -520 / -520 Weight last 48 hrs Weight 208 lb 7 oz Weight 211 lb 1 oz Weight 204 lb Physical Exam Narrative: GENERAL: Patient is alert and oriented ?3 and in no acute distress. The following is a focused bilateral lower extremity exam. VASCULAR: Dorsalis pedis palpable bilaterally. Palpable posterior tibial arteries palpable. Capillary refill time less than 5 seconds to the distal hallux bilaterally. Calf is supple and nontender proximally and distally. Decreased pedal hair growth bilaterally. Mild pitting edema to the right lower extremity. NEUROLOGICAL: Protective sensation intact 0/10 sites, tested with Kelly Caleb monofilament to bilateral feet. DERMATOLOGICAL: Wound at the plantar medial aspect of the right hallux interphalangeal joint exposed to myofascial layer measures 2.2 cm x 1.9 cm x 0.3 cm with periwound erythema and proximal streaking to the level of the proximal leg more prominent anteriorly. Sanguinous crust at the posterior leg at the level of the Achilles without surrounding erythema, drainage, no underlying wound, no bogginess or fluctuance. MUSCULOSKELETAL: No pain to palpation or with debridement secondary to neuropathy. No crepitus with palpation of soft tissue right foot and leg. Smooth range of motion at the right hallux interphalangeal joint and right first metatarsal phalangeal joint without crepitus. CARDIOVASCULAR: S1, S2, normal rate, normal rhythm. Dorsalis pedis and posterior tibial arteries palpable. LUNGS: Clear to auscltation, no use of acessory muscles, no crackles or wheezes. Postdebridement Urinary Catheter Management: [place]: Cath Placed During This Visit: yes Reason for Continuing Indwelling Catheter: Required Immobilization for Trauma or Surgery or Anesthesia Urinary Catheter Date of Insertion: 11/19/23 Data 11/20/23 02:45 11/20/23 02:45 Micro: Microbiology 11/19/23 19:45 Blood Culture - Preliminary Blood SPECIMEN COLLECTED 11/19/23 19:50 Blood Culture - Preliminary Blood SPECIMEN COLLECTED A&P Assessment and plan (1) Diabetic peripheral neuropathy associated with type 2 diabetes mellitus: (2) Non-pressure chronic ulcer of other part of right foot with necrosis of muscle: PROCEDURE: Full thickness wound debridement Location: Plantar medial aspect of right hallux interphalangeal joint. Local Anesthesia: none due to neuropathy Consent: Verbal Sterile Prep: with alcohol Details: Full thickness sharp debridement of the wound was performed using sterile dermal curette. The wound was debrided of hyperkeratotic rim and devitalized and fibrotic tissue down to and including muscle/fascia, being the deepest level of debridement. Predebridement measurements: 2.2 cm x 1.9 cm x 0.3 cm Postdebridement measurements: 2.6 cm x 2.2 cm x 0.3 cm Hemostasis: Pressure Irrigation: sterile saline Dressing: Silver alginate, sterile gauze, Kerlix and Aaron wrap Estimated Blood Loss: minimal Offloading: Postop shoe Postdebridement wound culture taken and sent to microbiology for Gram stain, culture and sensitivity. (3) Cellulitis of right lower extremity: Plan 58-year-old uncontrolled diabetic female presents with Mendoza grade 2 ulcer right hallux with streaking cellulitis to the right proximal leg. WBC 30.98 at admission, trending down to 23.15 overnight ESR 59 A1c 9.7 CRP 153.0 mg/L Right foot x-ray negative for bony erosion, negative for soft tissue edema, negative for foreign body Right foot CT scan Negative for osseous erosion, negative for soft tissue edema. Findings consistent with cellulitis. Performed excisional debridement bedside as documented above Postdebridement wound culture of right hallux wound taken and sent to microbiology for Gram stain, culture and sensitivity Silver alginate dressing Offloading with postop shoe Patient may heel touch for transfers with postop shoe to the right lower extremity. Wound culture does not extend to joint capsule or bone, was able to perform a thorough debridement bedside down to the myofascial layer, healthy wound bed with granular tissue appreciated postdebridement with healthy bleeding tissue. No plans for surgical intervention in the operating room at this time. Recommend continuation of empiric IV antibiotics. I will continue to round daily with daily dressing change and monitor her clinical response to continued antibiotics. No plans for PICC line. Consult Attestations Medical Necessity Statement: Right leg cellulitis diabetic foot ulcer right hallux Coding Level of Care Code Acute Code for [facility] Fwd Diagnoses Diabetic peripheral neuropathy associated with type 2 diabetes mellitus E11.42 Non-pressure chronic ulcer of other part of right foot with necrosis of muscle L97.513 Cellulitis of right lower extremity L03.115 Comment Performed CPT 09115
[2023-11-20] MEDS: insulin lispro 100 unit/1 mL SUBCUT ×3 (08:28→17:34)
[2023-11-20] MEDS: aspirin 81 mg EC Tablet PO (08:29)
[2023-11-20] MEDS: atorvastatin 40 mg Tablet 80 MG PO (08:30)
[2023-11-20] MEDS: duloxetine 60 mg Capsule PO (08:30)
[2023-11-20] MEDS: ticagrelor 90 mg Tablet PO ×2 (08:30→17:35)
[2023-11-20] MEDS: levETIRAcetam 500 mg Tablet PO ×2 (08:30→17:34)
[2023-11-20] MEDS: losartan 50 mg Tablet PO (08:30)
[2023-11-20] MEDS: metoprolol succinate ER (24 HR) 25 mg Tablet 12.5 MG PO (08:30)
[2023-11-20] MEDS: enoxaparin 40 mg/0.4 mL Syringe SUBCUT (08:31)
[2023-11-20] MEDS: isosorbide mononitrate ER 30 mg Tablet PO ×2 (08:31→17:35)
--- NOTE | 2023-11-20 10:00 | PC.PHAR ---
Addendum entered by Nithya Gordillo 11/20/23 10:46: unable to reach pts father susan that takes care of pts meds- medications verified using external med list last filled Original Note: PT STS HER FATHER AMY TAKES CARE OF HER MEDS- LEFT MESSAGE FOR HIM TO CALL BACK AT 9:30 AM
[2023-11-20] MEDS: acetaminophen 325 mg Tablet 650 MG PO (10:58)
[2023-11-20 11:39] LABS: Glucose Point of Care 182 mg/dL (70-110)
[2023-11-20] MEDS: vancomycin 1,250 MG/250 ML PIGGYBACK 166.669999999999987 MG IV (13:00)
[2023-11-20 16:43] LABS: Glucose Point of Care 170 mg/dL (70-110)
[2023-11-20 22:07] LABS: Glucose Point of Care 241 mg/dL (70-110)
--- NOTE | 2023-11-20 23:06 | PM.PN ---
Subjective Subjective: Underwent debridement of her wound. Having pain, requesting for medication to treat it. Vitals/I&O/Wt Last Vital Signs Temp 97.9 F 11/20/23 20:10 Pulse 94 11/20/23 20:10 Resp 16 11/20/23 20:10 BP 112/74 11/20/23 20:10 Pulse Ox 97 11/20/23 20:10 O2 Del Method Nasal Cannula 11/20/23 20:10 O2 Flow Rate 2 11/20/23 20:10 11/20/23 11/20/23 11/21/23 14:59 22:59 06:59 Intake Total 1660 / 1660 410 / 2070 Output Total 1300 / 1300 Balance 1660 / 1660 -890 / 770 Weight last 48 hrs Weight 94.546 kg Weight 95.736 kg Weight 92.533 kg Physical Exam Const: COMMON NORMALS: patient oriented x3 and alert GENERAL APPEARANCE: cooperative ORIENTATION/CONSCIOUSNESS: Yes awake HENMT: COMMON NORMALS: oropharynx normal Neck/C-Spine: COMMON NORMALS: no JVD Resp: COMMON NORMALS: normal respiratory effort and clear to auscultation bilaterally AUSCULTATION: clear to auscultation bilaterally Cardio: COMMON NORMALS: no JVD, regular rhythm, S1 normal heart sound present, S2 normal heart sound present and No murmurs present (Cardio) RHYTHM: regular rhythm HEART SOUNDS: S1 normal heart sound present and S2 normal heart sound present GI: COMMON NORMALS: Normal to inspection, nondistended, normoactive bowel sounds present, Soft to palpation and non-tender PALPATION: Yes Soft to palpation Extremity: COMMON NORMALS: no joint enlargement and no pedal edema NARRATIVE EXTREMITY EXAM: R foot dressing. Neuro: COMMON NORMALS: patient oriented x3 and moves all extremities SENSORIUM/ORIENTATION: Yes alert Skin: COMMON NORMALS: no rashes or lesions noted GENERAL SKIN EXAM: no rashes or lesions noted Urinary Catheter Management: [place]: Cath Placed During This Visit: yes Reason for Continuing Indwelling Catheter: Required Immobilization for Trauma or Surgery or Anesthesia Urinary Catheter Date of Insertion: 11/19/23 Data 11/20/23 02:45 11/20/23 02:45 Micro: Microbiology 11/19/23 19:45 Blood Culture - Preliminary Blood NEGATIVE TO DATE 11/19/23 19:50 Blood Culture - Preliminary Blood NEGATIVE TO DATE 11/20/23 08:40 Gram Stain - Final Toe - #1 A&P Assessment and plan (1) Cellulitis of right foot: (2) Diabetic ulcer of foot associated with diabetes mellitus due to underlying condition, limited to breakdown of skin: (3) CAD (coronary artery disease): Qualifiers: Coronary Disease-Associated Artery/Lesion type: [place] artery [place] vs. transplanted heart: [place] heart Associated angina: without angina Qualified Code(s): I25.10 - Atherosclerotic heart disease of [place] coronary artery without angina pectoris (4) PAD (peripheral artery disease): (5) Carotid stenosis, left: (6) 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: (7) Hyperlipidemia, mixed: (8) Type 2 diabetes mellitus with diabetic autonomic (poly)neuropathy: (9) NSTEMI (non-ST elevated myocardial infarction): Plan Right foot diabetic ulcer, right great toe, with extensive cellulitis, evidence of sepsis. Improvement in leukocytosis but persistent up to 23,000. Still sinus tachycardia 94. Reviewed vitals, CBC, CMP, lower extremity CT, venous duplex, inflammatory markers elevated, discussed with deburrer, reviewed podiatry note. Underwent debridement down to healthy tissue. No bone exposure visualized. Requesting MRI for additional assessment for possible osteomyelitis. Continue meropenem, Vancomycin. Monitor for risk of seizure with meropenem, risk of renal dysfunction with vancomycin. Reassess renal function. Follow-up cultures. CT/CT lower leg RT wo con* [id number] IMPRESSION: 1. Moderate subcutaneous edema in the big toe, small chronic plantar wound similar to 07/05/2023. Increased dorsal foot edema and anterior ankle edema . The findings are compatible with cellulitis, without drainable fluid collection. 2. No osseous erosion to suggest osteomyelitis at this time. plan: -nstemi: She is still pain-free. Mild troponin elevation likely secondary to demand ischemia with sepsis.Continue aspirin, Brilinta. -bilateral carotid disease -full code -lovenox for dvt prophlaxis Attestations Medical Necessity Statement*: Continue admission for assessment management of cellulitis and diabetic wound now right foot, status post debridement, reassessment and assessment for possible osteomyelitis. and High MDM includes amount and/or complexity of data reviewed/ordered [ previous or external records, resulted lab(s)/test(s), ordered lab(s)/test(s) and other healthcare professional discussion] and described risk of complication, morbidity or mortality of management as documented Diagnoses Cellulitis of right foot L03.115 Diabetic ulcer of foot associated with diabetes mellitus due to underlying condition, limited to breakdown of skin E08.621; L97.501 Coronary artery disease involving [place] coronary artery of [place] heart without angina pectoris I25.10 Coronary Disease-Associated Artery/Lesion type: [place] artery [place] vs. transplanted heart: [place] heart Associated angina: without angina PAD (peripheral artery disease) I73.9 Carotid stenosis, left I65.22 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 I65.23 Hyperlipidemia, mixed E78.2 Type 2 diabetes mellitus with diabetic autonomic (poly)neuropathy E11.43 NSTEMI (non-ST elevated myocardial infarction) I21.4
[2023-11-20] MEDS: magnesium sulfate premix 2 GM/50 ML PIGGYBACK IV (23:24)
[2023-11-21] VITALS (15 sets, daily range): BP systolic 92–142; BP diastolic 66–81; PULSE 85–95; RESP 16–20; TEMP 36.2–36.9; O2SAT 92–97
[2023-11-21] MEDS: meropenem 1,000 MG in sodium chloride 0.9% (plus) 50 ML 100 MG IV ×3 (00:28→17:35)
[2023-11-21] MEDS: vancomycin 1,250 MG/250 ML PIGGYBACK 167 MG IV ×2 (01:04→12:24)
[2023-11-21] MEDS: sodium chloride 0.9% 1,000 ML 75 ML IV (02:46)
[2023-11-21] MEDS: morphine 4 mg/mL SDV 1 mL 2 MG IVP ×5 (03:58→21:26)
[2023-11-21 04:50] LABS: Basophils # 0.1 10^3/uL (0.0-0.1); Basophils % 0.6 %; Eosinophils # 0.7 10^3/uL (0.0-0.8); Eosinophils % 4.6 %; Hematocrit 35.2 % (36-47); Lymphocytes # 2.8 10^3/uL (0.8-4.8); Lymphocytes % 17.6 %; Mean Corpuscular HGB Conc 31.3 g/dL (30-55); Mean Corpuscular Hemoglobin 24.4 pg (27-33); Mean Platelet Volume 8.9 fL (7.4-10.4); Monocytes # 1.5 10^3/uL (0.2-0.9); Monocytes % 9.4 %; Neutrophils # 10.36 10^3/uL (1.8-7.7); Neutrophils % 66.4 %; Nucleated Red Blood Cells % 0 %; Platelet Count 530 10^3/cmm (157-399); Red Blood Count 4.51 10^6/uL (3.85-5.65); Red Cell Distribution Width 15.6 % (12.1-15.1)
[2023-11-21 05:11] LABS: Anion Gap 14.5 (5-19); Blood Urea Nitrogen 16 mg/dL (6-20); Calcium 8.7 mg/dL (8.5-10.5); Carbon Dioxide 20 mmol/L (22-29); Chloride 105 mmol/L (98-107); Creatinine Clr Calc Pharmacy 119.0304; Glomerular Filtration Rate 103.4 mL/min (90-130); Glucose 191 mg/dL (65-115); Osmolality Calculated 286 mOsm/kg (285-295); Potassium 4.5 mmol/L (3.5-5.1); Sodium 135 mmol/L (136-145)
[2023-11-21] MEDS: pantoprazole DR 40 mg Tablet PO (05:35)
[2023-11-21 06:48] LABS: Glucose Point of Care 210 mg/dL (70-110)
--- NOTE | 2023-11-21 06:56 | P.PN_ITS ---
Subjective 2 Subjective: Patient seen bedside this morning, denies any acute events overnight. Patient denies any subjective nausea, vomiting, fever, chills, shortness of breath or chest pain. Vitals/I&O/Wt Last Vital Signs Temp 98.4 F 11/21/23 04:00 Pulse 95 11/21/23 04:00 Resp 17 11/21/23 04:00 BP 104/66 11/21/23 04:00 Pulse Ox 93 11/21/23 04:00 O2 Del Method Nasal Cannula 11/21/23 04:00 O2 Flow Rate 2 11/20/23 20:10 11/20/23 11/20/23 11/21/23 14:59 22:59 06:59 Intake Total 1660 / 1660 530 / 2190 1238.75 / 3428.75 Output Total 1300 / 1300 800 / 2100 Balance 1660 / 1660 -770 / 890 438.75 / 1328.75 Weight last 48 hrs Weight 209 lb 3 oz Weight 208 lb 7 oz Weight 211 lb 1 oz Weight 204 lb Physical Exam 2 Narrative: GENERAL: Patient is alert and oriented ?3 and in no acute distress. The following is a focused bilateral lower extremity exam. VASCULAR: Dorsalis pedis palpable bilaterally. Palpable posterior tibial arteries palpable. Capillary refill time less than 5 seconds to the distal hallux bilaterally. Calf is supple and nontender proximally and distally. Decreased pedal hair growth bilaterally. Mild pitting edema to the right lower extremity. NEUROLOGICAL: Protective sensation intact 0/10 sites, tested with [place] Caleb monofilament to bilateral feet. DERMATOLOGICAL: Wound at the plantar medial aspect of the right hallux interphalangeal joint exposed to myofascial layer measures 2.2 cm x 1.9 cm x 0.3 cm with periwound erythema and proximal streaking to the level of the proximal leg more prominent anteriorly. Sanguinous crust at the posterior leg at the level of the Achilles without surrounding erythema, drainage, no underlying wound, no bogginess or fluctuance. MUSCULOSKELETAL: No pain to palpation or with debridement secondary to neuropathy. No crepitus with palpation of soft tissue right foot and leg. Smooth range of motion at the right hallux interphalangeal joint and right first metatarsal phalangeal joint without crepitus. Postdebridement Urinary Catheter Management: [place]: Cath Placed During This Visit: yes Reason for Continuing Indwelling Catheter: Required Immobilization for Trauma or Surgery or Anesthesia Urinary Catheter Date of Insertion: 11/19/23 Data 11/21/23 04:30 11/21/23 04:30 Micro: Microbiology 11/19/23 19:45 Blood Culture - Preliminary Blood NEGATIVE TO DATE 11/19/23 19:50 Blood Culture - Preliminary Blood NEGATIVE TO DATE 11/20/23 08:40 Gram Stain - Final Toe - #1 A&P Assessment and plan (1) Diabetic peripheral neuropathy associated with type 2 diabetes mellitus: (2) Non-pressure chronic ulcer of other part of right foot with necrosis of muscle: (3) Cellulitis of right lower extremity: Plan 58-year-old uncontrolled diabetic female presents with Mendoza grade 2 ulcer right hallux with streaking cellulitis to the right proximal leg. WBC 30.98 at admission, trending down to 23.15 overnight ESR 59 A1c 9.7 CRP 153.0 mg/L Right foot x-ray negative for bony erosion, negative for soft tissue edema, negative for foreign body Right foot CT scan Negative for osseous erosion, negative for soft tissue edema. Findings consistent with cellulitis. MRI right foot with and without contrast pending. Performed excisional debridement bedside November 20, 2023. Postdebridement wound culture of right hallux wound taken and sent to microbiology for Gram stain, culture and sensitivity Silver alginate dressing Offloading with postop shoe Patient may heel touch for transfers with postop shoe to the right lower extremity. Trend of improvement at today's evaluation. Will require further hospitalization for IV antibiotics, right foot MRI pending. Podiatry will follow Attestations 2 Medical Necessity Statement*: Cellulitis and diabetic foot infection, right lower extremity Coding Level of Care Code Acute Code for [facility] Fwd Diagnoses Diabetic peripheral neuropathy associated with type 2 diabetes mellitus E11.42 Non-pressure chronic ulcer of other part of right foot with necrosis of muscle L97.513 Cellulitis of right lower extremity L03.115
--- NOTE | 2023-11-21 07:00 | MR_ITS ---
WS: [id number] MRI RIGHT FOOT WITH AND WITHOUT CONTRAST. COMPARISON: Radiograph 11/19/2023 Multiplanar, multisequence imaging is performed with and without contrast. MultiHance 20 mL IV. There is a moderate amount of soft tissue edema along the dorsal surface of the foot beginning at the level of the proximal metatarsals and extending to the toes. There is additional more focal subcutan eous edema surrounding the first toe. Superficial soft tissue ulceration along the medial aspect of the first toe at the IP joint. Ulcerati on measures 7 x 2 mm. There is a small amount of enhancement and edema within the proximal first pha lanx medial head. This is closely associated with the ulceration. There is enhancement through the ul ceration track site. Findings are suspicious for osteomyelitis. Area of enhancement and osteomyelitis measures 5 x 5 mm. There is additional enhancement within the edema surrounding the metatarsals. There is significant en hancement consistent with cellulitis. There is no well-formed loculation or collection. No additional marrow signal abnormality. Additional serpiginous regions in the navicular and distal talus are suspicious for areas of osteonec rosis. IMPRESSION: 1. There is extensive cellulitis surrounding the metatarsals with extension to the toes. Cellulitis is predominantly along the dorsal foot and the first toe. 2. Soft tissue ulceration along the medial first IP joint with enhancement and cellulitis. 3. Focal osteomyelitis involving the medial most head of the proximal first phalanx. Focal osteomyel itis measures 5 x 5 mm. 4. No soft tissue abscess. 5. Focal regional osteonecrosis in the navicular and anterior talar process.
[2023-11-21] MEDS: levETIRAcetam 500 mg Tablet PO ×2 (08:40→17:36)
[2023-11-21] MEDS: metoprolol succinate ER (24 HR) 25 mg Tablet 12.5 MG PO (08:40)
[2023-11-21] MEDS: insulin lispro 100 unit/1 mL SUBCUT ×3 (08:40→21:25)
[2023-11-21] MEDS: ticagrelor 90 mg Tablet PO ×2 (08:40→17:37)
[2023-11-21] MEDS: duloxetine 60 mg Capsule PO (08:40)
[2023-11-21] MEDS: enoxaparin 40 mg/0.4 mL Syringe SUBCUT (08:40)
[2023-11-21] MEDS: aspirin 81 mg EC Tablet PO (08:40)
[2023-11-21] MEDS: atorvastatin 40 mg Tablet 80 MG PO (08:41)
[2023-11-21] MEDS: losartan 50 mg Tablet PO (08:41)
[2023-11-21] MEDS: isosorbide mononitrate ER 30 mg Tablet PO (08:41)
--- NOTE | 2023-11-21 09:29 | PC.CHAP ---
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 [] Patient/Family/Request visit [] Outpatient visit [] Follow-up visit [] Physician referral [] Code/Alert [x] Routine visit [] Staff referral [] Actively dying [] Patient sleeping [] Family support [] [] Out of room [] Palliative care [] [] Receiving care in room [] Pre-surgical visit [] Trauma [] Long length of stay [] ICU visit [] Other: Relational/Emotional Strength [x] Patient feels connected with others/family/visitors/staff [] Distress [] Loneliness/isolation [] Abandonment Spirituality of Patient [x] Person of Mary [] Attends Rastafari of their Mary [x] Believes in Prayer [] Reads Bible or Mormonism materials [] There are Spiritual issues to be addressed Parts Puller Interventions [x] Prayer [x] Active listening [] Non-anxious presence [x] Spiritual/emotional support [] Crisis/trauma care [] Spiritual counseling [] Bereavement support [] Provided bereavement packet [] Provided Bible/devotional materials [] Provided toy/stuffed animal, coloring book to patient or family member [] Provided Communion [] Anointing/[place] [] Salvation [x] Completed spiritual assessment [] Other: Impact on Illness or Injury [] Angry [] Fearful [] Anxious [] Often cries [] Exhaustion [] Unable to work [] Unable to attend church [] Unable to walk/stand [] Unable to read [] Unable to drive [] Unable to eat/drink [] Unable to sleep [] Unable to be with family [] Patient intubated [] Other: Summary Time spent with patient 5 min
[2023-11-21] MEDS: gadobenate dimeglumine 20 mL vial IV (11:22)
[2023-11-21 11:37] LABS: Glucose Point of Care 173 mg/dL (70-110)
[2023-11-21 11:58] LABS: Vancomycin Trough 13.4 ug/mL (10-15)
[2023-11-21] MEDS: acetaminophen 325 mg Tablet 650 MG PO (12:23)
--- NOTE | 2023-11-21 15:03 | PC.SOCIAL ---
IMM Update pg 2 of IMM updated and reviewed w/ patient. Copy provided and copy dated, initialed and placed in chart.
--- NOTE | 2023-11-21 16:44 | PM.PN ---
Subjective Subjective: Hospital course, labs appreciated. Today morning seen sitting up in bed complaining of increased pain in the foot. Denies any nausea, vomiting, headache. Has otherwise remained hemodynamically stable and afebrile. Vitals/I&O/Wt Last Vital Signs Temp 98.0 F 11/21/23 12:18 Pulse 95 11/21/23 12:18 Resp 16 11/21/23 13:30 BP 92/66 11/21/23 12:18 Pulse Ox 94 11/21/23 12:18 O2 Del Method Room Air 11/21/23 12:18 O2 Flow Rate 2 11/20/23 20:10 11/21/23 11/21/23 11/21/23 06:59 14:59 22:59 Intake Total 1238.75 / 3428.75 890 / 890 Output Total 800 / 2100 Balance 438.75 / 1328.75 890 / 890 Weight last 48 hrs Weight 94.886 kg Weight 94.546 kg Weight 95.736 kg Weight 92.533 kg Physical Exam Narrative: NEUROLOGICAL: Protective sensation intact 0/10 sites, tested with [place] Caleb monofilament to bilateral feet. DERMATOLOGICAL: Wound at the plantar medial aspect of the right hallux interphalangeal joint exposed to myofascial layer measures 2.2 cm x 1.9 cm x 0.3 cm with periwound erythema and proximal streaking to the level of the proximal leg more prominent anteriorly. Sanguinous crust at the posterior leg at the level of the Achilles without surrounding erythema, drainage, no underlying wound, no bogginess or fluctuance. MUSCULOSKELETAL: No pain to palpation or with debridement secondary to neuropathy. No crepitus with palpation of soft tissue right foot and leg. Smooth range of motion at the right hallux interphalangeal joint and right first metatarsal phalangeal joint without crepitus. Postdebridement Const: COMMON NORMALS: no acute distress, patient oriented x3 and alert GENERAL APPEARANCE: cooperative ORIENTATION/CONSCIOUSNESS: Yes awake, Yes oriented to person, Yes oriented to place and Yes oriented to time HENMT: COMMON NORMALS: normocephalic, atraumatic and oropharynx normal HEAD & SCALP: normocephalic and atraumatic FACE & SINUS: normal facial exam MOUTH: Normal oral and palatal mucosa present THROAT: posterior oropharynx normal Eye: COMMON NORMALS: Equal, round and reactive pupils present, EOMs intact bilaterally, conjunctivae normal and no scleral icterus GENERAL EYE: appearance normal, both eyes and all related structures ALIGNMENT: Yes alignment normal PERIORBITAL: periorbital findings normal CONJUNCTIVA: Yes conjunctivae normal PUPIL: Yes Equal, round and reactive pupils present Neck/C-Spine: COMMON NORMALS: full ROM and no JVD GENERAL: Yes normal visual inspection Lymph: LYMPHATIC: no lymphadenopathy noted Chest: COMMONS NORMALS: normal inspection of the chest Resp: COMMON NORMALS: normal respiratory effort, No retractions, No use of accessory muscles and clear to auscultation bilaterally EFFORT & INSPECTION: Yes able to speak in complete sentences and Yes symmetric chest movement AUSCULTATION: clear to auscultation bilaterally Cardio: COMMON NORMALS: no JVD, regular rate, regular rhythm, S1 normal heart sound present, S2 normal heart sound present, No murmurs present (Cardio) and Peripheral pulses 2+ throughout RATE: regular rate RHYTHM: regular rhythm HEART SOUNDS: S1 normal heart sound present and S2 normal heart sound present PERIPHERAL PULSES: Peripheral pulses 2+ throughout GI: COMMON NORMALS: Normal to inspection, nondistended, normoactive bowel sounds present, Soft to palpation, non-tender and No hepatosplenomegaly present INSPECTION: Yes normal to inspection PALPATION: Yes Soft to palpation and Yes No hepatosplenomegaly present RECTAL EXAM: deferred Neuro: COMMON NORMALS: patient oriented x3 and moves all extremities SENSORIUM/ORIENTATION: Yes alert, Yes oriented to person, Yes oriented to place and Yes oriented to time CRANIAL NERVES: Yes CN normal except as noted Psych: COMMON NORMALS: mental status grossly normal, Normal thought process present, cooperative, activity/motor behavior normal, denies homicidal ideation and denies suicidal ideation THOUGHT PROCESS: Normal thought process present Urinary Catheter Management: [place]: Cath Placed During This Visit: yes Reason for Continuing Indwelling Catheter: Required Immobilization for Trauma or Surgery or Anesthesia Urinary Catheter Date of Insertion: 11/19/23 Data 11/21/23 04:30 11/21/23 04:30 Micro: Microbiology 11/20/23 08:40 Gram Stain - Final Toe - #1 Wound Culture - Preliminary Staphylococcus aureus Strep pyogenes (grp a) 11/19/23 22:48 Urine Culture - Preliminary Urine,Clean Catch Gram Negative Rods 11/19/23 19:45 Blood Culture - Preliminary Blood NEGATIVE TO DATE 11/19/23 19:50 Blood Culture - Preliminary Blood NEGATIVE TO DATE A&P Assessment and plan (1) Cellulitis of right foot: Post debridement on 11/20. Appreciate podiatry recommendations. Wound cultures are now growing Staph aureus and strep a. 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 For now continue with empiric vancomycin and meropenem. Patient is allergic to penicillins. (2) Osteomyelitis of ankle or foot, right, acute: As per MRI. Will most likely need surgical debridement. Most likely patient will also need 6 weeks of IV antibiotic as an outpatient. Plan for PICC line placement once blood cultures are negative. So far from 11/19 negative. Patient complaining of pain in the foot. Allergic to oxycodone and hydrocodone along with tramadol. Agreeable for trial of tramadol 50 mg every 4 hours as needed for now. Otherwise continue with Tylenol as needed along with morphine (3) Type 2 diabetes mellitus with diabetic autonomic (poly)neuropathy: A1c- 9.7 Insulin sliding scale at moderate dose protocol. Will uptitrate as per blood sugar checks. (4) PAD (peripheral artery disease): (5) CAD (coronary artery disease): Qualifiers: Coronary Disease-Associated Artery/Lesion type: [place] artery [place] vs. transplanted heart: [place] heart Associated angina: without angina Qualified Code(s): I25.10 - Atherosclerotic heart disease of [place] coronary artery without angina pectoris (6) Carotid stenosis, left: (7) 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: (8) Hyperlipidemia, mixed: (9) NSTEMI (non-ST elevated myocardial infarction): Unlikely. Troponin elevated on admission most likely in setting of demand ischemia. Patient is chest pain-free. Continue with home dose of aspirin, Brilinta, statin, metoprolol 12.5 mg twice daily. Plan Hypertension: Goal blood pressure less than 140/90 mmHg with mean over 65. Blood pressure soft. Continue with metoprolol as above, change Imdur to 30 mg oral daily. Hold off on losartan for now. Continue other chronic medications including Cymbalta 60 mg daily, Seroquel 200 mg nightly, Keppra 500 mg twice daily. Protonix for PUD prophylaxis Carb consistent diet Lovenox for DVT prophylaxis Full code Attestations Medical Necessity Statement*: Requires further hospitalization for management of right foot osteomyelitis with extensive cellulitis while patient requires surgical debridement and set up of outpatient IV antibiotics. Diagnoses Cellulitis of right foot L03.115 Osteomyelitis of ankle or foot, right, acute M86.171 Type 2 diabetes mellitus with diabetic autonomic (poly)neuropathy E11.43 PAD (peripheral artery disease) I73.9 Coronary artery disease involving [place] coronary artery of [place] heart without angina pectoris I25.10 Coronary Disease-Associated Artery/Lesion type: [place] artery [place] vs. transplanted heart: [place] heart Associated angina: without angina Carotid stenosis, left I65.22 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 I65.23 Hyperlipidemia, mixed E78.2 NSTEMI (non-ST elevated myocardial infarction) I21.4
[2023-11-21 17:09] LABS: Glucose Point of Care 193 mg/dL (70-110)
[2023-11-21 20:52] LABS: Glucose Point of Care 372 mg/dL (70-110)
[2023-11-21] MEDS: quetiapine 100 mg Tablet 200 MG PO (21:24)
[2023-11-22] VITALS (18 sets, daily range): BP systolic 107–133; BP diastolic 57–78; PULSE 82–106; RESP 15–19; TEMP 36.1–36.8; O2SAT 92–99
[2023-11-22] MEDS: meropenem 1,000 MG in sodium chloride 0.9% (plus) 50 ML 100 MG IV ×4 (00:10→23:03)
[2023-11-22] MEDS: vancomycin 1,250 MG/250 ML PIGGYBACK 167 MG IV (01:03)
[2023-11-22 05:15] LABS: Basophils # 0.1 10^3/uL (0.0-0.1); Basophils % 0.7 %; Eosinophils # 0.8 10^3/uL (0.0-0.8); Eosinophils % 6.3 %; Hematocrit 35.9 % (36-47); Lymphocytes # 3.3 10^3/uL (0.8-4.8); Lymphocytes % 27.1 %; Mean Corpuscular HGB Conc 31.5 g/dL (30-55); Mean Corpuscular Hemoglobin 24.2 pg (27-33); Mean Platelet Volume 9.2 fL (7.4-10.4); Monocytes % 8.5 %; Neutrophils # 6.78 10^3/uL (1.8-7.7); Neutrophils % 56.2 %; Nucleated Red Blood Cells % 0 %; Platelet Count 563 10^3/cmm (157-399); Red Blood Count 4.66 10^6/uL (3.85-5.65); Red Cell Distribution Width 15.4 % (12.1-15.1); White Blood Count 12.06 10^3/uL (3.29-11.43)
[2023-11-22] MEDS: pantoprazole DR 40 mg Tablet PO (05:29)
[2023-11-22 05:34] LABS: Alanine Aminotransferase 12 U/L (0-33); Albumin Level 3.1 g/dL (3.5-5.2); Alkaline Phosphatase 89 U/L (35-105); Anion Gap 16.6 (5-19); Aspartate Amino Transferase 11 U/L (0-32); Blood Urea Nitrogen 14 mg/dL (6-20); Calcium 9.2 mg/dL (8.5-10.5); Carbon Dioxide 21 mmol/L (22-29); Chloride 103 mmol/L (98-107); Creatinine Clr Calc Pharmacy 119.2552; Globulin 3.8 g/dL (1.3-4.6); Glomerular Filtration Rate 103.4 mL/min (90-130); Glucose 219 mg/dL (65-115); Osmolality Calculated 289 mOsm/kg (285-295); Potassium 4.6 mmol/L (3.5-5.1); Sodium 136 mmol/L (136-145); Total Bilirubin 0.2 mg/dL (0.15-1.2); Total Protein 6.9 g/dL (6.6-8.7)
[2023-11-22 06:43] LABS: Glucose Point of Care 253 mg/dL (70-110)
--- NOTE | 2023-11-22 06:47 | P.PN_ITS ---
Subjective 2 Subjective: Patient seen bedside this a.m., denies any acute events overnight. She is n.p.o. in preparation for surgical debridement right foot today around noon. Vitals/I&O/Wt Last Vital Signs Temp 98.3 F 11/22/23 04:37 Pulse 87 11/22/23 04:37 Resp 16 11/22/23 04:37 BP 119/75 11/22/23 04:37 Pulse Ox 93 11/22/23 04:37 O2 Del Method Room Air 11/21/23 18:08 O2 Flow Rate 2 11/20/23 20:10 11/21/23 11/21/23 11/22/23 14:59 22:59 06:59 Intake Total 1140 / 1140 1290 / 2430 780 / 3210 Output Total 2250 / 2250 2700 / 4950 Balance 1140 / 1140 -960 / 180 -1920 / -1740 Weight last 48 hrs Weight 208 lb 9 oz Weight 209 lb 3 oz Physical Exam 2 Narrative: GENERAL: Patient is alert and oriented ?3 and in no acute distress. The following is a focused bilateral lower extremity exam. VASCULAR: Dorsalis pedis palpable bilaterally. Palpable posterior tibial arteries palpable. Capillary refill time less than 5 seconds to the distal hallux bilaterally. Calf is supple and nontender proximally and distally. Decreased pedal hair growth bilaterally. Mild pitting edema to the right lower extremity. NEUROLOGICAL: Protective sensation intact 0/10 sites, tested with [place] Caleb monofilament to bilateral feet. DERMATOLOGICAL: Wound at the plantar medial aspect of the right hallux interphalangeal joint exposed to myofascial layer measures 2.2 cm x 1.9 cm x 0.3 cm with periwound erythema and proximal streaking to the level of the proximal leg more prominent anteriorly. Sanguinous crust at the posterior leg at the level of the Achilles without surrounding erythema, drainage, no underlying wound, no bogginess or fluctuance. MUSCULOSKELETAL: No pain to palpation or with debridement secondary to neuropathy. No crepitus with palpation of soft tissue right foot and leg. Smooth range of motion at the right hallux interphalangeal joint and right first metatarsal phalangeal joint without crepitus. Postdebridement Urinary Catheter Management: [place]: Cath Placed During This Visit: yes Reason for Continuing Indwelling Catheter: Other Urinary Catheter Date of Insertion: 11/19/23 Data 11/22/23 04:24 11/22/23 04:24 Micro: Microbiology 11/20/23 08:40 Gram Stain - Final Toe - #1 Wound Culture - Preliminary Staphylococcus aureus Strep pyogenes (grp a) 11/19/23 22:48 Urine Culture - Preliminary Urine,Clean Catch Gram Negative Rods A&P Assessment and plan (1) Diabetic peripheral neuropathy associated with type 2 diabetes mellitus: (2) Non-pressure chronic ulcer of other part of right foot with necrosis of muscle: (3) Cellulitis of right lower extremity: (4) Acute osteomyelitis of right foot: Plan 58-year-old uncontrolled diabetic female presents with Mendoza grade 2 ulcer right hallux with streaking cellulitis to the right proximal leg. MRI right foot with and without contrast November 21, 2023 shows focal osteomyelitis involving the medial portion of the head of the proximal phalanx right hallux with surrounding cellulitis. Discussed combination of surgical and medical management of her acute osteomyelitis, recommended surgical debridement of nonviable bone and PICC line placement with long-term IV antibiotics and wound care clinic follow-up. Patient is agreeable wishes to proceed. Patient is n.p.o. for surgery today at 1230 Discharge planning: PICC line and 6 weeks IV antibiotic therapy with home health outpatient Follow-up wound care clinic Would be a candidate for hyperbarics. Attestations 2 Medical Necessity Statement*: Cellulitis and osteomyelitis right foot Coding Level of Care Code Acute Code for [facility] Fwd Diagnoses Diabetic peripheral neuropathy associated with type 2 diabetes mellitus E11.42 Non-pressure chronic ulcer of other part of right foot with necrosis of muscle L97.513 Cellulitis of right lower extremity L03.115 Acute osteomyelitis of right foot M86.171
--- NOTE | 2023-11-22 07:44 | ANES.PREANE2 ---
Pre-Anesthetic Assessment Height/Weight: Height 1.65 m Weight 94.602 kg Temp Pulse Resp BP Pulse Ox O2 Del Method O2 Flow Rate 97.8 F 92 15 117/62 92 Room Air 2 11/22/23 07:29 11/22/23 07:29 11/22/23 07:29 11/22/23 07:29 11/22/23 07:29 11/22/23 07:29 11/20/23 20:10 Preop Diagnosis: Osteomyelitis right great toe Operation Date: 11/22/23 13:05 Proposed Procedures p Incision And Drainage(Right) - Luis Butt DPM Familial anesthetic complications: None Was Beta Jose L taken within 24 hours: N/A Was Clonidine taken within 24 hours: N/A Last intake: Intake Last Liquid Date 11/20/23 Last Liquid Time 00:00 Last Solid Date 11/20/23 Last Solid Time 00:00 Social Tobacco and No alcohol Exam alert, oriented x 3, clear to auscultation bilaterally and regular rate & rhythm Airway Mallampati: Class III Dentition: other (no teeth) Pulmonary Chronic Obstructive Pulmonary Disease CV/HEM Coronary Artery Disease (HAILEE) and Myocardial Infarction Metabolic Diabetes Mellitus Neuropsych Cerebrovascular Accident (R hemiparesis) L carotid stenosis, epilepsy Anesthetic Plan ASA status: 4 Anesthesia: Choice Risk of > 500 ml blood loss (7ml/kg in children): No Medications/Allergies Home Medications Medication Instructions Recorded Confirmed Last Taken Type blood sugar diagnostic (Blood #100 ea 12/27/22 11/20/23 Unknown Rx Glucose Test strips) blood-glucose meter #1 ea 12/27/22 11/20/23 Unknown Rx lancets #100 ea 12/27/22 11/20/23 Unknown Rx ondansetron 4 mg disintegrating 4 mg PO Q6H PRN Nausea And Vomiting 07/05/23 11/20/23 Unknown History tablet tramadol 50 mg tablet 50 mg PO Q8H PRN pain #20 tabs 08/01/23 11/20/23 Unknown Rx aspirin 81 mg tablet,delayed 81 mg PO QAM #30 tabs 08/05/23 11/20/23 Unknown Rx release blood sugar diagnostic (Blood #50 ea 08/10/23 11/20/23 Unknown Rx Glucose Test strips) nitroglycerin 0.4 mg sublingual 0.4 mg sublingual Q5M PRN Chest 08/15/23 11/20/23 Unknown Rx tablet (Nitrostat) Pain #30 tabs diphenhydramine HCl 25 mg tablet 50 mg (2 x 25 mg) PO BID PRN 08/25/23 11/20/23 Unknown Rx (Allergy (diphenhydramine)) allergy symptoms #90 tabs fluconazole 150 mg tablet See Rx Instructions .Route 08/25/23 11/20/23 Unknown Rx .COMPLEX 14 days #5 tabs albuterol sulfate 90 mcg/actuation 2 puff inhalation Q6H PRN 10/05/23 11/20/23 Unknown Rx aerosol inhaler shortness of breath or wheezing #8.5 grams atorvastatin 80 mg tablet 80 mg PO QAM #30 tabs 10/05/23 11/20/23 Unknown Rx dulaglutide 0.75 mg/0.5 mL 0.75 mg (0.5 mL) SUBCUT Q7D #1 mL 10/05/23 11/20/23 Unknown Rx subcutaneous pen injector duloxetine 60 mg capsule,delayed 60 mg PO DAILY #30 caps 10/05/23 11/20/23 Unknown Rx release empagliflozin 25 mg tablet 25 mg PO DAILY #30 tabs 10/05/23 11/20/23 Unknown Rx (Jardiance) ezetimibe 10 mg tablet 10 mg PO DAILY #30 tabs 10/05/23 11/20/23 Unknown Rx furosemide 40 mg tablet 40 mg PO DAILY PRN Edema #30 tabs 10/05/23 11/20/23 Unknown Rx hydroxyzine HCl 25 mg tablet 25 mg PO Q6H PRN itching #20 tabs 10/05/23 11/20/23 Unknown Rx insulin detemir U-100 100 unit/mL 100 unit SUBCUT DAILY #15 mL 10/05/23 11/20/23 Unknown Rx (3 mL) subcutaneous pen (Levemir FlexPen) isosorbide mononitrate 60 mg 30 mg (1/2 x 60 mg) PO BID #60 tabs 10/05/23 11/20/23 Unknown Rx tablet,extended release 24 hr levetiracetam 500 mg tablet 500 mg PO BID #60 tabs 10/05/23 11/20/23 Unknown Rx losartan 50 mg tablet 50 mg PO DAILY@0800 #30 tabs 10/05/23 11/20/23 Unknown Rx metformin 500 mg tablet,extended 500 mg PO BID #60 tabs 10/05/23 11/20/23 Unknown Rx release 24 hr metoprolol succinate 25 mg 12.5 mg (1/2 x 25 mg) PO QAM #15 10/05/23 11/20/23 Unknown Rx tablet,extended release 24 hr tabs pantoprazole 40 mg tablet,delayed 40 mg PO QAM #30 tabs 10/05/23 11/20/23 Unknown Rx release pen needle, diabetic 31 gauge x #100 ea 10/05/23 11/20/23 Unknown Rx 5/16 (Comfort EZ Pen [place]) pen needle, diabetic 32 gauge x #100 ea 10/05/23 11/20/23 Unknown Rx 5/32 (Comfort EZ Pen [place]) quetiapine 200 mg tablet 200 mg PO BEDTIME #30 tabs 10/05/23 11/20/23 Unknown Rx ticagrelor 90 mg tablet (Brilinta) 90 mg PO BID #180 tabs 10/05/23 11/20/23 Unknown Rx tiotropium bromide 18 mcg capsule 1 cap inhalation DAILY 30 days #30 10/05/23 11/20/23 Unknown Rx with inhalation device (Spiriva inhalations with HandiHaler) clotrimazole-betamethasone 1 See Rx Instructions .Route 11/02/23 11/20/23 Unknown Rx %-0.05 % topical cream .COMPLEX #45 grams nystatin 100,000 unit/gram topical 1 applic topical BID #30 grams 11/02/23 11/20/23 Unknown Rx cream cyclobenzaprine 10 mg tablet 10 mg PO TID PRN Muscle Spasm 11/20/23 11/20/23 Unknown History Allergies Allergy/AdvReac Type Severity Reaction Status Date / Time fentanyl Allergy Unknown ALGY-Difficulty Verified 10/05/23 13:52 Breathing adhesive Allergy Unknown Verified 10/05/23 13:52 cephalexin [From Keflex] Allergy ADR-Itching Verified 10/05/23 13:52 clindamycin Allergy ADR-Itching Verified 10/05/23 13:52 codeine Allergy Unknown Verified 10/05/23 13:52 hydrocodone Allergy Unknown Verified 10/05/23 13:52 latex Allergy ALGY-Swell Verified 10/05/23 13:52 Lip/Tongue/Throat naproxen [From Naprosyn] Allergy Unknown Verified 10/05/23 13:52 nut - unspecified Allergy ALGY-Anaphy Verified 10/05/23 13:52 laxis oxycodone [From Roxicodone] Allergy ADR-Muscle Verified 10/05/23 13:52 Pain Penicillins Allergy Unknown Verified 10/05/23 13:52 tramadol Allergy ADR-Itching Verified 10/05/23 13:52 Current Medications Generic Name Dose Route Start Last Admin Trade Name Freq PRN Reason Stop Dose Admin Acetaminophen 650 mg 11/19/23 22:36 11/21/23 12:23 Acetaminophen 325 Mg Tablet PO 650 mg Q6H PRN Administration Mild/Mod Pain Or Temp >/= 101 Aspirin 81 mg 11/20/23 09:00 11/21/23 08:40 Aspirin 81 Mg Ec Tablet PO 81 mg DAILY YUSUF Administration Atorvastatin Calcium 80 mg 11/20/23 09:00 11/21/23 08:41 Atorvastatin 40 Mg Tablet PO 80 mg DAILY YUSUF Administration Duloxetine HCl 60 mg 11/20/23 09:00 11/21/23 08:40 Duloxetine 60 Mg Capsule PO 60 mg DAILY YUSUF Administration Enoxaparin Sodium 40 mg 11/20/23 09:00 11/21/23 08:40 Enoxaparin 40 Mg/0.4 Ml Syringe SUBCUT 40 mg Q24H YUSUF Administration Meropenem 1,000 mg/ Sodium 50 mls @ 100 mls/hr 11/19/23 23:00 11/22/23 00:52 Chloride IV Infused Q8H YUSUF Infusion Protocol Vancomycin/PEG/NADA/Lysine/Water 1,250 mg in 250 mls @ 166.667 mls/hr 11/20/23 00:00 11/22/23 02:43 Vancocin IV Infused Q12H YUSUF Infusion Insulin Human Lispro 0 unit 11/21/23 18:00 11/21/23 21:25 Insulin Lispro 100 Unit/1 Ml SUBCUT 14 unit WM&BEDTIME YUSUF Administration Protocol Levetiracetam 500 mg 11/20/23 09:00 11/21/23 17:36 Levetiracetam 500 Mg Tablet PO 500 mg BID YUSUF Administration Losartan Potassium 50 mg 11/20/23 08:00 11/21/23 08:41 Losartan 50 Mg Tablet PO 50 mg DAILY@0800 YUSUF Administration Metoprolol Succinate 12.5 mg 11/20/23 09:00 11/21/23 08:40 Metoprolol Succinate Er (24 Hr) 25 Mg Tablet PO 12.5 mg DAILY YUSUF Administration Morphine Sulfate 2 mg 11/19/23 22:36 11/21/23 21:26 Morphine 4 Mg/Ml Sdv 1 Ml IVP 2 mg Q4H PRN Administration SEVERE PAIN Pantoprazole Sodium 40 mg 11/20/23 06:00 11/22/23 05:[address] 40 Mg Tablet PO 40 mg QAM YUSUF Administration Quetiapine Fumarate 200 mg 11/19/23 23:15 11/21/23 21:24 Quetiapine 100 Mg Tablet PO 200 mg BEDTIME YUSUF Administration Ticagrelor 90 mg 11/20/23 09:00 11/21/23 17:37 Ticagrelor 90 Mg Tablet PO 90 mg BID YUSUF Administration PFS Anesthesia Medical History (Updated 11/22/23 @ 07:06 by Luis Butt DPM) COPD (chronic obstructive pulmonary disease) Hypersensitivity pneumonitis Rheumatoid arthritis Infection of total left knee replacement Right wrist deformity History of stroke Acute exacerbation of chronic obstructive pulmonary disease (COPD) Acute encephalopathy Acute respiratory failure with hypoxia Acute alteration in mental status Sepsis Diabetes Sacral pressure ulcer Cellulitis of gluteal region Seizure disorder Hypoxemia Seizure UTI (urinary tract infection) Chronic, continuous use of opioids Seizures Acute and chronic respiratory failure with hypoxia Pneumonia Pneumonia Acute hypoxemic respiratory failure Stenosis of left internal carotid artery with cerebral infarction Diabetic foot ulcer Right arm weakness Hoarseness of voice Sepsis Numbness and tingling in both hands Urinary tract infection Chest pain Syncope Needs flu shot Carpal tunnel syndrome, right Urinary incontinence Chronic knee pain Abnormal stress test CAD (coronary artery disease) Acute exacerbation of CHF (congestive heart failure) Unstable angina COPD exacerbation Exposure to COVID-19 virus Compression fracture of L2 lumbar vertebra Right hip pain Dyspnea (HFpEF) heart failure with preserved ejection fraction Candidiasis of vagina History of CVA (cerebrovascular accident) Elevated troponin Pericardial effusion Pressure ulcer Prosthetic joint infection Anemia Septic arthritis of knee, left Osteoarthritis of left knee History of hypoglycemic coma Obesity (BMI 35.0-39.9 without comorbidity) Peripheral sensory neuropathy due to type 2 diabetes mellitus Coronary artery disease due to type 2 diabetes mellitus Diabetes type 2, uncontrolled Neuropathy Insomnia Fibromyalgia, primary Hyperlipidemia, mixed CVA (cerebral vascular accident) Dyslipidemia Leukocytosis NSTEMI (non-ST elevated myocardial infarction) Thought to be secondary to plaque rupture. Angiogram July 04 no flow-limiting lesions, or restenosis of previous stent from April 2020 Chronic obstructive pulmonary disease, unspecified Vitamin D deficiency Type 2 diabetes mellitus with diabetic autonomic (poly)neuropathy Essential hypertension Encounter for long-term opiate analgesic use Opioid contract exists Current every day smoker Chronic pain of left knee Low back pain radiating to both legs Intervertebral disc disorder of lumbar region with myelopathy Lumbosacral spondylosis without myelopathy Osteoarthritis of spine at multiple levels Chronic left-sided low back pain Surgical History Status post left knee replacement History of coronary angiogram Angiogram April 2020 with 90% circumflex lesion, drug-eluting stent placed by Dr. Jerome Status post lumbar laminectomy S/P lumbar fusion DR. Shreya ZAYAS IN [place], [place] L4-L5, L5-S1 S/p bilateral carpal tunnel release History of arthroscopic surgery of elbow BILATERAL S/P hysterectomy S/P knee surgery RIGHT Family History Other CAD (coronary artery disease) Cancer Diabetes Social History Smoking and tobacco/nicotine status: current every day tobacco/nicotine user cigarettes Packs smoked per day: 0.5 Years cigarettes smoked: 10 [ Other cigarette details: PER PATIENT REPORT] Alcohol intake: former Substance/Drug Use: never Caregiver/support person: No Lives independently: Yes Household members: family and other Details: son Housing: Manufactured/Mobile home Marital status: Unknown Marital status details: She and son state she is not service: No Current occupational status: unemployed Pets and animals: Yes Do you think of yourself as: Straight/Heterosexual Current gender identity: Female Data Anesthesia 11/22/23 04:24 11/22/23 04:24 Short CBC 11/21/23 11/22/23 Range/Units 04:30 04:24 WBC 15.60 H 12.06 H (3.29-11.43) 10^3/uL Hgb 11.00 L 11.30 (11.27-16.99) g/dL Hct 35.2 L 35.9 L (36-47) % MCV 78.0 L 77.0 L (85-98) fl Plt Count 530 H 563 H (157-399) 10^3/cmm Neut % (Auto) 66.4 56.2 % Neut # (Auto) 10.36 H 6.78 (1.8-7.7) 10^3/uL BMP 11/21/23 11/22/23 04:30 04:24 Sodium 135 L 136 Potassium 4.5 4.6 Chloride 105 103 Carbon Dioxide 20 L 21 L BUN 16 14 Creatinine 0.6 0.6 Glucose 191 H 219 H Calcium 8.7 9.2 Liver Function 11/22/23 Range/Units 04:24 Total Bilirubin 0.2 (0.15-1.2) mg/dL AST 11 (0-32) U/L ALT 12 (0-33) U/L Alkaline Phosphatase 89 (35-105) U/L Albumin 3.1 L (3.5-5.2) g/dL Microbiology 11/20/23 08:40 Gram Stain - Final Toe - #1 Wound Culture - Preliminary Staphylococcus aureus Strep pyogenes (grp a) 11/19/23 22:48 Urine Culture - Preliminary Urine,Clean Catch Gram Negative Rods Cardiac Studies: Echocardiogram 09/13/21 Echocardiogram Limited Views 10/02/20 Echocardiogram Ultrasound 12/29/20 Sestamibi Stress Test (Cardiology) 06/12/21
[2023-11-22] MEDS: ticagrelor 90 mg Tablet PO ×2 (08:32→18:17)
[2023-11-22] MEDS: atorvastatin 40 mg Tablet 80 MG PO (08:32)
[2023-11-22] MEDS: metoprolol succinate ER (24 HR) 25 mg Tablet 12.5 MG PO (08:32)
[2023-11-22] MEDS: duloxetine 60 mg Capsule PO (08:32)
[2023-11-22] MEDS: isosorbide mononitrate ER 30 mg Tablet PO (08:33)
[2023-11-22] MEDS: levETIRAcetam 500 mg Tablet PO ×2 (08:33→18:17)
--- NOTE | 2023-11-22 10:27 | P.PN_ITS ---
Subjective 2 Subjective: No acute events overnight. Patient lying comfortably in bed today. Denies any nausea, vomiting, headache. States pain is well-controlled. Plan for the OR today for osteomyelitis of metatarsals. Has remained hemodynamically stable and afebrile. Vitals/I&O/Wt Last Vital Signs Temp 97.8 F 11/22/23 07:29 Pulse 91 11/22/23 08:16 Resp 16 11/22/23 08:16 BP 117/62 11/22/23 07:29 Pulse Ox 94 11/22/23 08:16 O2 Del Method Room Air 11/22/23 08:16 O2 Flow Rate 2 11/20/23 20:10 11/21/23 11/22/23 11/22/23 22:59 06:59 14:59 Intake Total 1290 / 2430 780 / 3210 Output Total 2250 / 2250 2700 / 4950 Balance -960 / 180 -1920 / -1740 Weight last 48 hrs Weight 94.602 kg Weight 94.886 kg Physical Exam 2 Const: COMMON NORMALS: no acute distress, patient oriented x3 and alert G ENERAL APPEARANCE: cooperative ORIENTATION/CONSCIOUSNESS: Yes awake, Yes oriented to person, Yes oriented to place and Yes oriented to time HENMT: COMMON NORMALS: normocephalic, atraumatic and oropharynx normal HEAD & SCALP: normocephalic and atraumatic FACE & SINUS: normal facial exam M OUTH: Normal oral and palatal mucosa present THROAT: posterior oropharynx normal Eye: COMMON NORMALS: Equal, round and reactive pupils present, EOMs intact bilaterally, conjunctivae normal and no scleral icterus GENERAL EYE: a ppearance normal, both eyes and all related structures ALIGNMENT: Yes alignment normal PERIORBITAL: periorbital findings normal CONJUNCTIVA: Yes conjunctivae normal PUPIL: Yes Equal, round and reactive pupils present Neck/C-Spine: COMMON NORMALS: full ROM and no JVD GENERAL: Yes normal visual inspection Lymph: LYMPHATIC: no lymphadenopathy noted Chest: COMMONS NORMALS: normal inspection of the chest Resp: COMMON NORMALS: normal respiratory effort, No retractions, No use of accessory muscles and clear to auscultation bilaterally EFFORT & INSPECTION: Yes able to speak in complete sentences and Yes symmetric chest movement A USCULTATION: clear to auscultation bilaterally Cardio: COMMON NORMALS: no JVD, regular rate, regular rhythm, S1 normal heart sound present, S2 normal heart sound present, No murmurs present (Cardio) and Peripheral pulses 2+ throughout RATE: regular rate RHYTHM: regular rhythm HEART SOUNDS: S1 normal heart sound present and S2 normal heart sound present PERIPHERAL PULSES: Peripheral pulses 2+ throughout GI: COMMON NORMALS: Normal to inspection, nondistended, normoactive bowel sounds present, Soft to palpation, non-tender and No hepatosplenomegaly present INSPECTION: Yes normal to inspection PALPATION: Yes Soft to palpation and Yes No hepatosplenomegaly present RECTAL EXAM: deferred Neuro: COMMON NORMALS: patient oriented x3 and moves all extremities S ENSORIUM/ORIENTATION: Yes alert, Yes oriented to person, Yes oriented to place and Yes oriented to time CRANIAL NERVES: Yes CN normal except as noted Psych: COMMON NORMALS: mental status grossly normal, Normal thought process present, cooperative, activity/motor behavior normal, denies homicidal ideation and denies suicidal ideation THOUGHT PROCESS: Normal thought process present Skin: OTHER: Urinary Catheter Management: [place]: Cath Placed During This Visit: yes Reason for Continuing Indwelling Catheter: Other Urinary Catheter Date of Insertion: 11/19/23 Data 11/22/23 04:24 11/22/23 04:24 Micro: Microbiology 11/20/23 08:40 Gram Stain - Final Toe - #1 Wound Culture - Preliminary Staphylococcus aureus Strep pyogenes (grp a) 11/19/23 22:48 Urine Culture - Preliminary Urine,Clean Catch Gram Negative Rods A&P Assessment and plan (1) Cellulitis of right foot: Post debridement on 11/20. Appreciate podiatry recommendations. Wound cultures are now growing Staph aureus and strep a. 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 For now continue with empiric vancomycin and meropenem. Patient is allergic to penicillins. (2) Osteomyelitis of ankle or foot, right, acute: As per MRI. Will most likely need surgical debridement. Most likely patient will also need 6 weeks of IV antibiotic as an outpatient. Plan for PICC line placement once blood cultures are negative. So far from 11/19 negative. Patient complaining of pain in the foot. Allergic to oxycodone and hydrocodone along with tramadol. Agreeable for trial of tramadol 50 mg every 4 hours as needed for now. Otherwise continue with Tylenol as needed along with morphine (3) Type 2 diabetes mellitus with diabetic autonomic (poly)neuropathy: A1c- 9.7 Insulin sliding scale at moderate dose protocol. Will uptitrate as per blood sugar checks. (4) PAD (peripheral artery disease): (5) CAD (coronary artery disease): Qualifiers: Associated angina: without angina Coronary Disease-Associated Artery/Lesion type: [place] artery [place] vs. transplanted heart: [place] heart Qualified Code(s): I25.10 - Atherosclerotic heart disease of [place] coronary artery without angina pectoris (6) Carotid stenosis, left: (7) 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: (8) Hyperlipidemia, mixed: (9) NSTEMI (non-ST elevated myocardial infarction): Unlikely. Troponin elevated on admission most likely in setting of demand ischemia. Patient is chest pain-free. Continue with home dose of aspirin, Brilinta, statin, metoprolol 12.5 mg twice daily. Plan Hypertension: Goal blood pressure less than 140/90 mmHg with mean over 65. Blood pressure soft. Continue with metoprolol as above, change Imdur to 30 mg oral daily. Hold off on losartan for now. Continue other chronic medications including Cymbalta 60 mg daily, Seroquel 200 mg nightly, Keppra 500 mg twice daily. Protonix for PUD prophylaxis Carb consistent diet Lovenox for DVT prophylaxis Full code Plan for the day: Appreciate podiatry recommendations. Plan for OR debridement today. Will follow-up or cultures. For now wound cultures growing Staph aureus and group A strep. Patient has history of MRSA in the past. Urine culture growing gram-negative rods. Has history of ESBL E. coli in past. For now continue with IV vancomycin and meropenem. Patient will most likely need IV antibiotics for over 6 weeks. Will plan for PICC line placement once blood cultures remain negative. Will consult ID for antibiotic narrowing for outpatient. Continue with insulin sliding scale. Start patient on Lantus 10 units nightly. A1c 9.7. Tried calling patient's family member numbers in the chart. Unfortunately could not get through. Could not leave a voice message as answering machine is full. Attestations 2 Medical Necessity Statement*: Requires further hospitalization for management of metatarsal osteomyelitis as patient requires OR debridement and IV antibiotics as an outpatient set up Diagnoses Cellulitis of right foot L03.115 Osteomyelitis of ankle or foot, right, acute M86.171 Type 2 diabetes mellitus with diabetic autonomic (poly)neuropathy E11.43 PAD (peripheral artery disease) I73.9 Coronary artery disease involving [place] coronary artery of [place] heart without angina pectoris I25.10 Associated angina: without angina Coronary Disease-Associated Artery/Lesion type: [place] artery [place] vs. transplanted heart: [place] heart Carotid stenosis, left I65.22 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 I65.23 Hyperlipidemia, mixed E78.2 NSTEMI (non-ST elevated myocardial infarction) I21.4
[2023-11-22] MEDS: morphine 4 mg/mL SDV 1 mL 2 MG IVP ×3 (11:39→22:02)
[2023-11-22 11:53] LABS: Glucose Point of Care 242 mg/dL (70-110)
[2023-11-22] MEDS: vancomycin 1,250 MG/250 ML PIGGYBACK 200 MG IV ×2 (12:26→23:35)
--- NOTE | 2023-11-22 12:32 | P.HPUD_ITS ---
Surgery/Procedure H&P Update DATE OF PROCEDURE: November 22, 2023 DATE H&P PERFORMED: 11/19/23 H&P UPDATE INFORMATION: I have reviewed H&P completed within last 30 days, I have examined patient prior to procedure, No changes to prior documentation and H&P is in [facility] EMR on date indicated PREOP DIAGNOSIS: Osteomyelitis right great toe PLANNED PROCEDURE: Operation Date: 11/22/23 13:05 Proposed Procedures p Incision And Drainage(Right) - Luis Butt DPM
[2023-11-22] MEDS: lidocaine 2% INJ 20 mL INJECTION (13:00)
[2023-11-22] MEDS: BUPivacaine 0.5% INJ 30 mL INJECTION (13:00)
--- NOTE | 2023-11-22 13:31 | PM.OP ---
Operative Report Date of procedure: November 22, 2023 Pre-op diagnosis: Osteomyelitis right hallux Post-op diagnosis: acute osteomyelitis right hallux Post-op findings: Devitalized bone medial aspect of right hallux interphalangeal joint Procedure done: Incision of bone cortex, right foot. CPT code 93549 Implants: 3-0 nylon Specimens removed/disposition: Bone right hallux sent to microbiology for Gram stain, culture and sensitivity. Pathology: None Surgeon: Luis Butt DPM Steward Dishwasher: Barbara Estimated blood loss: 2 11 IV fluids: 0 Urine output: 0 Complications: None Findings: Devitalized bone at the medial aspect of the hallux interphalangeal joint, right foot. Brief History: Patient presented to emergency department with wound to the right great toe medially with proximal lymphangitic streaking and cellulitis. MRI found acute osteomyelitis at the medial head of the proximal phalanx of the hallux interphalangeal joint, right great toe. Discussed surgical and medical management consisting of surgical debridement with incision down to bone and PICC line with 6-week antibiotic course and wound care clinic. Patient is agreeable wishes to proceed. I reviewed at length with the patient, the risks, potential complications, benefits, alternatives, expectations, and typical outcomes associated with the surgery. The risks and potential complications were explained in detail, including but not limited to infection, wound dehiscence or soft tissue complications, bleeding and hematoma, chronic edema, neuritis or nerve damage producing numbness or chronic pain, CRPS, failure to relieve pain or worsening pain, thick / painful / unsightly scar, limited motion / stiffness, malposition, delayed union, malunion, or nonunion, fracture, reaction to implants, anesthetic complications, venous thromboembolism, and deformity recurrence. I discussed the notion of no regrets with the patient as it pertains to complications and outcomes. The patient seemed to understand the nature of the proposed care and required convalescence. They asked appropriate questions, answered to their satisfaction. They are aware no guarantees can be made as to a satisfactory outcome and they understand there may be other possible unforeseen complications or outcomes not listed here that will be treated accordingly if they arise. There were no written or implied guarantees given to the patient. They gave informed consent to proceed. Procedure: Under mild sedation the patient was brought to the operating room and remained on the gurney in supine position. A timeout was performed. Anesthesia was administered by the anesthesia service. Local anesthesia was injected by myself consisting of 30 cc of one-to-one mixture 1% lidocaine and 0.5% Marcaine plain and a right Zamudio block fashion. Well-padded pneumatic tourniquet was applied to the right ankle. The right lower extremity was scrubbed, prepped and draped utilizing normal aseptic technique. Right foot was elevated and ankle tourniquet inflated to 250 mmHg. Attention was directed to the right great toe where a wound was appreciated at the medial aspect of the hallux interphalangeal joint. Wound was debrided and noted to extend down to bone at the medial aspect of the right hallux interphalangeal joint. Attention was then directed to the dorsal aspect of the right hallux where a linear incision was performed medial and parallel to the extensor hallucis longus tendon at the level of the hallux interphalangeal joint full-thickness down to bone. Bone at the medial aspect of the proximal phalanx base and medial aspect of the proximal phalanx head was incised with a #15 blade and bone was sent to microbiology for Gram stain, culture and sensitivity. Bone had poor density at this region. Debridement performed down to viable bone followed by sterile saline flush. The dorsal incision was then closed with a single layer of 3-0 nylon. Medial right hallux interphalangeal joint wound measured 1.9 cm x 1.4 cm x 0.3 cm postdebridement. The incision and wound were then dressed with Adaptic, sterile 4 x 4's, Kerlix and Coban followed by application of a postop shoe to the right lower extremity. The tourniquet was then deflated and a prompt hyperemic response was noted to the distal digits of the right foot. Patient tolerated the procedure and anesthesia well and was transferred to the PACU with vital signs stable and vascular status intact. Following a period of postoperative monitoring she will be transferred back to the floor to continue empiric IV antibiotics. Will await bone cultures for more definitive long-term antibiotic selection.
--- NOTE | 2023-11-22 13:35 | P.BOP_ITS ---
Date of Procedure: 11/22/23 Surgeon: Luis Butt DPM Food Beverage Attendant(s): Barbara Procedure(s) performed: Incision and debridement down to bone right foot Findings of the procedure(s): Osteomyelitis right great toe Estimated blood loss: 2 mL Specimen(s) removed: Bone right great toe sent to microbiology for Gram stain, culture and sensitivity Post-operative diagnosis: Acute osteomyelitis right great toe No complications with anesthesia or procedure
[2023-11-22 16:42] LABS: Glucose Point of Care 226 mg/dL (70-110)
[2023-11-22] MEDS: insulin lispro 100 unit/1 mL SUBCUT ×2 (18:17→22:05)
[2023-11-22] MEDS: quetiapine 100 mg Tablet 200 MG PO (20:12)
[2023-11-22] MEDS: HYDROcodone-acetaminophen 7.5-325 mg Tablet 1 TAB PO (20:12)
[2023-11-22 21:07] LABS: Glucose Point of Care 255 mg/dL (70-110)
[2023-11-22] MEDS: insulin glargine 100 units/1 mL 10 UNIT SUBCUT (22:05)
[2023-11-23] VITALS (8 sets, daily range): BP systolic 112–154; BP diastolic 68–85; PULSE 86–97; RESP 14–18; TEMP 36.3–37; O2SAT 93–94
[2023-11-23] MEDS: morphine 4 mg/mL SDV 1 mL 2 MG IVP ×2 (03:28→11:12)
[2023-11-23 05:19] LABS: Basophils # 0.1 10^3/uL (0.0-0.1); Basophils % 0.9 %; Eosinophils # 0.8 10^3/uL (0.0-0.8); Eosinophils % 5.7 %; Hematocrit 37.3 % (36-47); Lymphocytes # 4.1 10^3/uL (0.8-4.8); Lymphocytes % 30.4 %; Mean Corpuscular HGB Conc 31.1 g/dL (30-55); Mean Corpuscular Hemoglobin 24.6 pg (27-33); Mean Corpuscular Volume 79.2 fl (85-98); Mean Platelet Volume 9.2 fL (7.4-10.4); Monocytes # 1.2 10^3/uL (0.2-0.9); Monocytes % 9.1 %; Neutrophils # 7.04 10^3/uL (1.8-7.7); Neutrophils % 52.8 %; Nucleated Red Blood Cells % 0 %; Platelet Count 618 10^3/cmm (157-399); Red Blood Count 4.71 10^6/uL (3.85-5.65); Red Cell Distribution Width 15.4 % (12.1-15.1); White Blood Count 13.33 10^3/uL (3.29-11.43)
[2023-11-23] MEDS: pantoprazole DR 40 mg Tablet PO (05:21)
[2023-11-23 05:43] LABS: Alanine Aminotransferase 13 U/L (0-33); Albumin Level 3.2 g/dL (3.5-5.2); Alkaline Phosphatase 94 U/L (35-105); Anion Gap 16.6 (5-19); Aspartate Amino Transferase 16 U/L (0-32); Blood Urea Nitrogen 13 mg/dL (6-20); Carbon Dioxide 21 mmol/L (22-29); Chloride 102 mmol/L (98-107); Creatinine Clr Calc Pharmacy 120.7169; Globulin 4.1 g/dL (1.3-4.6); Glomerular Filtration Rate 103.4 mL/min (90-130); Glucose 198 mg/dL (65-115); Osmolality Calculated 286 mOsm/kg (285-295); Potassium 4.6 mmol/L (3.5-5.1); Sodium 135 mmol/L (136-145); Total Bilirubin 0.2 mg/dL (0.15-1.2); Total Protein 7.3 g/dL (6.6-8.7)
[2023-11-23 06:38] LABS: Glucose Point of Care 249 mg/dL (70-110)
[2023-11-23] MEDS: insulin lispro 100 unit/1 mL SUBCUT ×4 (07:59→20:56)
[2023-11-23] MEDS: duloxetine 60 mg Capsule PO (08:00)
[2023-11-23] MEDS: ticagrelor 90 mg Tablet PO ×2 (08:00→17:13)
[2023-11-23] MEDS: losartan 50 mg Tablet PO (08:00)
[2023-11-23] MEDS: levETIRAcetam 500 mg Tablet PO ×2 (08:03→17:13)
[2023-11-23] MEDS: atorvastatin 40 mg Tablet 80 MG PO (08:03)
[2023-11-23] MEDS: enoxaparin 40 mg/0.4 mL Syringe SUBCUT (08:04)
[2023-11-23] MEDS: aspirin 81 mg EC Tablet PO (08:04)
[2023-11-23] MEDS: isosorbide mononitrate ER 30 mg Tablet PO (08:04)
[2023-11-23] MEDS: metoprolol succinate ER (24 HR) 25 mg Tablet 12.5 MG PO (08:04)
[2023-11-23] MEDS: meropenem 1,000 MG in sodium chloride 0.9% (plus) 50 ML 100 MG IV ×3 (08:05→23:11)
[2023-11-23 11:31] LABS: Glucose Point of Care 244 mg/dL (70-110)
--- NOTE | 2023-11-23 12:05 | PM.PN ---
Subjective Subjective: Patient seen bedside this a.m., and requesting stronger pain medication for her right foot. 1 day status post incision and debridement down to bone cortex right foot secondary to acute osteomyelitis of the right hallux proximal phalanx head. Vitals/I&O/Wt Last Vital Signs Temp 98.6 F 11/23/23 05:25 Pulse 97 11/23/23 08:00 Resp 15 11/23/23 11:12 BP 124/82 11/23/23 08:00 Pulse Ox 94 11/23/23 11:12 O2 Del Method Room Air 11/23/23 08:00 O2 Flow Rate 2 11/20/23 20:10 11/22/23 11/23/23 11/23/23 22:59 06:59 14:59 Intake Total 530 / 830 780 / 1610 290 / 290 Output Total 650 / 1952 2000 / 3952 1300 / 1300 Balance -120 / -1122 -1220 / -2342 -1010 / -1010 Weight last 48 hrs Weight 214 lb 1 oz Weight 208 lb 9 oz Physical Exam Narrative: GENERAL: Patient is alert and oriented ?3 and in no acute distress. The following is a focused bilateral lower extremity exam. VASCULAR: Dorsalis pedis palpable bilaterally. Palpable posterior tibial arteries palpable. Capillary refill time less than 5 seconds to the distal hallux bilaterally. Calf is supple and nontender proximally and distally. Decreased pedal hair growth bilaterally. Mild pitting edema to the right lower extremity. NEUROLOGICAL: Protective sensation intact 0/10 sites, tested with [place] Caleb monofilament to bilateral feet. DERMATOLOGICAL: Dressings clean and dry, no strikethrough bleeding or drainage. Dressing left intact. Previously appreciated cellulitis of the right leg is significantly improving and subsiding. MUSCULOSKELETAL: No pain to palpation or with debridement secondary to neuropathy. No crepitus with palpation of soft tissue right foot and leg. Smooth range of motion at the right hallux interphalangeal joint and right first metatarsal phalangeal joint without crepitus. Urinary Catheter Management: [place]: Cath Placed During This Visit: yes Reason for Continuing Indwelling Catheter: Other Urinary Catheter Date of Insertion: 11/19/23 Data 11/23/23 04:17 11/23/23 04:17 Micro: Microbiology 11/22/23 13:00 Gram Stain - Final Bone 11/20/23 08:40 Gram Stain - Final Toe - #1 Wound Culture - Final Methicillin Resis Staph Aureus Strep pyogenes (grp a) 11/19/23 22:48 Urine Culture - Final Urine,Clean Catch Escherichia coli A&P Assessment and plan (1) Diabetic peripheral neuropathy associated with type 2 diabetes mellitus: (2) Non-pressure chronic ulcer of other part of right foot with necrosis of muscle: (3) Cellulitis of right lower extremity: (4) Acute osteomyelitis of right foot: Plan 58-year-old uncontrolled diabetic female presents with acute osteomyelitis right great toe with cellulitis streaking to the proximal right leg. 1 day status post incision and debridement down to bone right great toe performed 11/22/2023 Improvement in cellulitis at right leg Recommend continuation of empiric IV antibiotics, narrow antibiotic therapy once cultures yield further information Heel touch for transfers with postop shoe at the right foot. Discharge planning: PICC line and 6 weeks IV antibiotic therapy with home health outpatient Follow-up wound care clinic Would be a candidate for hyperbarics. Attestations Medical Necessity Statement*: Acute osteomyelitis right hallux Coding Level of Care Code Acute Code for [facility] Diagnoses Diabetic peripheral neuropathy associated with type 2 diabetes mellitus E11.42 Non-pressure chronic ulcer of other part of right foot with necrosis of muscle L97.513 Cellulitis of right lower extremity L03.115 Acute osteomyelitis of right foot M86.171
[2023-11-23] MEDS: vancomycin 1,250 MG/250 ML PIGGYBACK 166.699999999999989 MG IV (12:11)
--- NOTE | 2023-11-23 12:58 | PC.SOCIAL ---
IMM Update pg 2 of IMM updated and reviewed w/ patient. Copy provided and copy dated, initialed and placed in chart.
--- NOTE | 2023-11-23 13:20 | P.PN_ITS ---
Subjective 2 Subjective: No acute events overnight. Patient has remained hemodynamically stable and afebrile. Underwent I&D of the wound down to bone on right foot. Sleeping during examination but on waking up asking for more pain medications. Vitals/I&O/Wt Last Vital Signs Temp 98.6 F 11/23/23 05:25 Pulse 94 11/23/23 12:00 Resp 16 11/23/23 12:00 BP 115/75 11/23/23 12:00 Pulse Ox 94 11/23/23 12:00 O2 Del Method Room Air 11/23/23 12:00 O2 Flow Rate 2 11/20/23 20:10 11/22/23 11/23/23 11/23/23 22:59 06:59 14:59 Intake Total 530 / 830 780 / 1610 290 / 290 Output Total 650 / 1952 1999 / 3952 1300 / 1300 Balance -120 / -1122 -1220 / -2342 -1010 / -1010 Weight last 48 hrs Weight 97.097 kg Weight 94.602 kg Physical Exam 2 Narrative: NEUROLOGICAL: Protective sensation intact 0/10 sites, tested with [place] Caleb monofilament to bilateral feet. DERMATOLOGICAL: Wound at the plantar medial aspect of the right hallux interphalangeal joint exposed to myofascial layer measures 2.2 cm x 1.9 cm x 0.3 cm with periwound erythema and proximal streaking to the level of the proximal leg more prominent anteriorly. Sanguinous crust at the posterior leg at the level of the Achilles without surrounding erythema, drainage, no underlying wound, no bogginess or fluctuance. MUSCULOSKELETAL: No pain to palpation or with debridement secondary to neuropathy. No crepitus with palpation of soft tissue right foot and leg. Smooth range of motion at the right hallux interphalangeal joint and right first metatarsal phalangeal joint without crepitus. Postdebridement Const: COMMON NORMALS: no acute distress, patient oriented x3 and alert G ENERAL APPEARANCE: cooperative ORIENTATION/CONSCIOUSNESS: Yes awake, Yes oriented to person, Yes oriented to place and Yes oriented to time HENMT: COMMON NORMALS: normocephalic, atraumatic and oropharynx normal HEAD & SCALP: normocephalic and atraumatic FACE & SINUS: normal facial exam M OUTH: Normal oral and palatal mucosa present THROAT: posterior oropharynx normal Eye: COMMON NORMALS: Equal, round and reactive pupils present, EOMs intact bilaterally, conjunctivae normal and no scleral icterus GENERAL EYE: a ppearance normal, both eyes and all related structures ALIGNMENT: Yes alignment normal PERIORBITAL: periorbital findings normal CONJUNCTIVA: Yes conjunctivae normal PUPIL: Yes Equal, round and reactive pupils present Neck/C-Spine: COMMON NORMALS: full ROM and no JVD GENERAL: Yes normal visual inspection Lymph: LYMPHATIC: no lymphadenopathy noted Chest: COMMONS NORMALS: normal inspection of the chest Resp: COMMON NORMALS: normal respiratory effort, No retractions, No use of accessory muscles and clear to auscultation bilaterally EFFORT & INSPECTION: Yes able to speak in complete sentences and Yes symmetric chest movement A USCULTATION: clear to auscultation bilaterally Cardio: COMMON NORMALS: no JVD, regular rate, regular rhythm, S1 normal heart sound present, S2 normal heart sound present, No murmurs present (Cardio) and Peripheral pulses 2+ throughout RATE: regular rate RHYTHM: regular rhythm HEART SOUNDS: S1 normal heart sound present and S2 normal heart sound present PERIPHERAL PULSES: Peripheral pulses 2+ throughout GI: COMMON NORMALS: Normal to inspection, nondistended, normoactive bowel sounds present, Soft to palpation, non-tender and No hepatosplenomegaly present INSPECTION: Yes normal to inspection PALPATION: Yes Soft to palpation and Yes No hepatosplenomegaly present RECTAL EXAM: deferred Neuro: COMMON NORMALS: patient oriented x3 and moves all extremities S ENSORIUM/ORIENTATION: Yes alert, Yes oriented to person, Yes oriented to place and Yes oriented to time CRANIAL NERVES: Yes CN normal except as noted Psych: COMMON NORMALS: mental status grossly normal, Normal thought process present, cooperative, activity/motor behavior normal, denies homicidal ideation and denies suicidal ideation THOUGHT PROCESS: Normal thought process present Urinary Catheter Management: [place]: Cath Placed During This Visit: yes Reason for Continuing Indwelling Catheter: Other Urinary Catheter Date of Insertion: 11/19/23 Data 11/23/23 04:17 11/23/23 04:17 Micro: Microbiology 11/22/23 13:00 Gram Stain - Final Bone Tissue Culture - Preliminary 11/20/23 08:40 Gram Stain - Final Toe - #1 Wound Culture - Final Methicillin Resis Staph Aureus Strep pyogenes (grp a) 11/19/23 22:48 Urine Culture - Final Urine,Clean Catch Escherichia coli A&P Assessment and plan (1) Cellulitis of right foot: Post debridement on 11/20. Appreciate podiatry recommendations. Wound cultures are now growing Staph aureus and strep a. 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 For now continue with empiric vancomycin and meropenem. Patient is allergic to penicillins. (2) Osteomyelitis of ankle or foot, right, acute: As per MRI. Will most likely need surgical debridement. Most likely patient will also need 6 weeks of IV antibiotic as an outpatient. Plan for PICC line placement once blood cultures are negative. So far from 11/19 negative. Patient complaining of pain in the foot. Allergic to oxycodone and hydrocodone along with tramadol. Agreeable for trial of tramadol 50 mg every 4 hours as needed for now. Otherwise continue with Tylenol as needed along with morphine (3) Type 2 diabetes mellitus with diabetic autonomic (poly)neuropathy: A1c- 9.7 Insulin sliding scale at moderate dose protocol. Will uptitrate as per blood sugar checks. (4) PAD (peripheral artery disease): (5) CAD (coronary artery disease): Qualifiers: Coronary Disease-Associated Artery/Lesion type: [place] artery [place]eller vs. transplanted heart: [place] heart Associated angina: without angina Qualified Code(s): I25.10 - Atherosclerotic heart disease of [place] coronary artery without angina pectoris (6) Carotid stenosis, left: (7) 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: (8) Hyperlipidemia, mixed: (9) NSTEMI (non-ST elevated myocardial infarction): Unlikely. Troponin elevated on admission most likely in setting of demand ischemia. Patient is chest pain-free. Continue with home dose of aspirin, Brilinta, statin, metoprolol 12.5 mg twice daily. Plan Hypertension: Goal blood pressure less than 140/90 mmHg with mean over 65. Blood pressure soft. Continue with metoprolol as above, change Imdur to 30 mg oral daily. Hold off on losartan for now. Continue other chronic medications including Cymbalta 60 mg daily, Seroquel 200 mg nightly, Keppra 500 mg twice daily. Protonix for PUD prophylaxis Carb consistent diet Lovenox for DVT prophylaxis Full code Plan for the day: Continue with current IV antibiotics. Wound culture for now growing MRSA and strep a. Will consult ID for narrowing of IV IV antibiotics. Patient will most likely need IV antibiotics for overall 6 weeks. Blood cultures have remained negative. PICC line placement. Start on [place] 5 mg every 6 hours as needed. Increase Lantus to 15 units twice daily. Discharge planning: Patient has been accepted at [facility]. Awaiting authorization. Can most likely be discharged within next 24 to 48 hours if patient remains hemodynamically stable and afebrile once authorization is received. Tried calling patient's family member numbers in the chart. Unfortunately could not get through. Could not leave a voice message as answering machine is full. Attestations 2 Medical Necessity Statement*: Requires further hospitalization for management of right foot osteomyelitis/cellulitis while outpatient IV antibiotics is set up Diagnoses Cellulitis of right foot L03.115 Osteomyelitis of ankle or foot, right, acute M86.171 Type 2 diabetes mellitus with diabetic autonomic (poly)neuropathy E11.43 PAD (peripheral artery disease) I73.9 Coronary artery disease involving [place] coronary artery of [place] heart without angina pectoris I25.10 Coronary Disease-Associated Artery/Lesion type: [place] artery [place]eller vs. transplanted heart: [place] heart Associated angina: without angina Carotid stenosis, left I65.22 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 I65.23 Hyperlipidemia, mixed E78.2 NSTEMI (non-ST elevated myocardial infarction) I21.4
--- NOTE | 2023-11-23 15:07 | XR_ITS ---
WS: [id number] XR chest 1V portable [id number] REASON FOR EXAM: Post PICC insertion FINDINGS: Initial PICC line placement with the tip into the right atrium. Instructions were to retract the cath eter 1 cm. Repeat examination after adjustment of the PICC line demonstrates the tip of the catheter at the cavoatrial junction in proper position for use. IMPRESSION: Right arm PICC line placement with final position appropriate for use. PICC line position and repositioning was discussed with the cytology technologist over the phone at 3:48 p.m.
--- NOTE | 2023-11-23 15:40 | PC.NURSE ---
Single lumen PICC placed to right basilic vein. Referred to vascular access nurse for PICC placement for IV antibiotics x 6 weeks. Risks and benefits discussed and informed consent obtained from patient. Right arm assessed with right basilic vein measuring 4.2 mm, straight, and apparent best choice for placement. Using sterile technique and MST, right arm accessed x 1 stick. Mid-arm circumference measured 10 cm from right AC 32 cm. Trimmed cath 41 cm with 0 external length noted. CXR shows tip in SVC, cavoatrial junction, in good position for use per radiologist. Line secured with stat-lock. Insertion site covered with Biopatch and TSM. Report given to bedside nurseJuly.
--- NOTE | 2023-11-23 15:45 | PC.OT ---
Attempted OT evaluation with patient undergoing a procedure; hold until later time.
[2023-11-23 16:46] LABS: Glucose Point of Care 265 mg/dL (70-110)
[2023-11-23] MEDS: insulin glargine 100 units/1 mL 15 UNIT SUBCUT (17:13)
[2023-11-23] MEDS: morphine ER (12 HR) 15 mg Tablet PO (17:13)
[2023-11-23 20:21] LABS: Glucose Point of Care 165 mg/dL (70-110)
[2023-11-23] MEDS: HYDROcodone-acetaminophen 7.5-325 mg Tablet 1 TAB PO (20:56)
[2023-11-23] MEDS: quetiapine 100 mg Tablet 200 MG PO (20:56)
[2023-11-23 23:21] LABS: Vancomycin Trough 14.9 ug/mL (10-15)
[2023-11-23] MEDS: vancomycin 1,250 MG/250 ML PIGGYBACK 166 MG IV (23:53)
[2023-11-24] VITALS (7 sets, daily range): BP systolic 102–138; BP diastolic 69–83; PULSE 78–100; RESP 16–18; TEMP 36.4–36.8; O2SAT 92–95
[2023-11-24] MEDS: pantoprazole DR 40 mg Tablet PO (05:03)
[2023-11-24 05:04] LABS: Basophils # 0.1 10^3/uL (0.0-0.1); Eosinophils # 0.9 10^3/uL (0.0-0.8); Eosinophils % 7.9 %; Hematocrit 37.6 % (36-47); Lymphocytes # 3.9 10^3/uL (0.8-4.8); Lymphocytes % 32.9 %; Mean Corpuscular HGB Conc 31.6 g/dL (30-55); Mean Corpuscular Hemoglobin 24.5 pg (27-33); Mean Corpuscular Volume 77.5 fl (85-98); Mean Platelet Volume 8.9 fL (7.4-10.4); Monocytes % 8.4 %; Neutrophils # 5.66 10^3/uL (1.8-7.7); Neutrophils % 48.4 %; Nucleated Red Blood Cells % 0 %; Platelet Count 655 10^3/cmm (157-399); Red Blood Count 4.85 10^6/uL (3.85-5.65); Red Cell Distribution Width 15.3 % (12.1-15.1); White Blood Count 11.72 10^3/uL (3.29-11.43)
[2023-11-24 05:24] LABS: Alanine Aminotransferase 14 U/L (0-33); Albumin Level 3.3 g/dL (3.5-5.2); Alkaline Phosphatase 94 U/L (35-105); Anion Gap 17.3 (5-19); Aspartate Amino Transferase 13 U/L (0-32); Blood Urea Nitrogen 14 mg/dL (6-20); Calcium 9.3 mg/dL (8.5-10.5); Carbon Dioxide 23 mmol/L (22-29); Chloride 101 mmol/L (98-107); Creatinine Clr Calc Pharmacy 144.4779; Globulin 4.3 g/dL (1.3-4.6); Glomerular Filtration Rate 127.6 mL/min (90-130); Glucose 238 mg/dL (65-115); Osmolality Calculated 292 mOsm/kg (285-295); Potassium 4.3 mmol/L (3.5-5.1); Sodium 137 mmol/L (136-145); Total Bilirubin 0.2 mg/dL (0.15-1.2); Total Protein 7.6 g/dL (6.6-8.7)
[2023-11-24 06:53] LABS: Glucose Point of Care 228 mg/dL (70-110)
[2023-11-24] MEDS: meropenem 1,000 MG in sodium chloride 0.9% (plus) 50 ML 200 MG IV (08:47)
[2023-11-24] MEDS: insulin glargine 100 units/1 mL 15 UNIT SUBCUT (08:48)
[2023-11-24] MEDS: insulin lispro 100 unit/1 mL SUBCUT ×2 (08:48→12:10)
[2023-11-24] MEDS: morphine ER (12 HR) 15 mg Tablet PO (08:48)
[2023-11-24] MEDS: duloxetine 60 mg Capsule PO (08:49)
[2023-11-24] MEDS: levETIRAcetam 500 mg Tablet PO (08:49)
[2023-11-24] MEDS: losartan 50 mg Tablet PO (08:49)
[2023-11-24] MEDS: aspirin 81 mg EC Tablet PO (08:49)
[2023-11-24] MEDS: isosorbide mononitrate ER 30 mg Tablet PO (08:49)
[2023-11-24] MEDS: atorvastatin 40 mg Tablet 80 MG PO (08:49)
[2023-11-24] MEDS: enoxaparin 40 mg/0.4 mL Syringe SUBCUT (08:49)
[2023-11-24] MEDS: ticagrelor 90 mg Tablet PO (08:49)
[2023-11-24] MEDS: metoprolol succinate ER (24 HR) 25 mg Tablet 12.5 MG PO (08:49)
[2023-11-24 11:16] LABS: Glucose Point of Care 249 mg/dL (70-110)
--- NOTE | 2023-11-24 12:05 | PM.DCS ---
Discharge Providers Date of Admission: 11/19/23 22:36 Date of Discharge: November 24, 2023 Attending Provider at Admission: Kehinde Cruz MD Attending Provider at Discharge: Cornelius Joyce MD Consults: Podiatry: Dr. Butt ID: Dr. Gresham Primary Care Provider: Laurel Eagle MD Diagnoses at Discharge Discharge Diagnosis (1) Cellulitis of right foot: Status: Acute (2) Osteomyelitis of ankle or foot, right, acute: Status: Acute (3) Type 2 diabetes mellitus with diabetic autonomic (poly)neuropathy: Status: Acute (4) PAD (peripheral artery disease): Status: Acute (5) CAD (coronary artery disease): Status: Acute Qualifiers: Coronary Disease-Associated Artery/Lesion type: [place] artery Tribal vs. transplanted heart: [place] heart Associated angina: without angina Qualified Code(s): I25.10 - Atherosclerotic heart disease of [place] coronary artery without angina pectoris (6) Carotid stenosis, left: Status: Acute (7) 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: Status: Acute (8) Hyperlipidemia, mixed: Status: Acute (9) NSTEMI (non-ST elevated myocardial infarction): Status: Acute Permanent problem details: Thought to be secondary to plaque rupture. Angiogram July 04 no flow-limiting lesions, or restenosis of previous stent from April 2020 Reason for Visit Reason for Visit: Right foot swollen with red line and pain in left Brief History: History as per HPI: Mayra Ascencio is a 58 year old female with a past medical history of hypertension, hyperlipidemia, CAD, CHF, obesity, COPD on 2 L, insulin-dependent type 2 diabetes mellitus, history of stenting in 2020, history of left hemispheric CVA with right hemiparesis in August 2021, history of bilateral carotid artery disease at cervical portions, there is plans on possible endarterectomy, smoking, who presents to [facility] due to right lower extremity swelling, erythema, she denies any fevers, chills, no cough, she tells me that she saw wound care and they did debridement of her diabetic ulcer right great toe, she tells me that today she started developing significant erythema,'s swelling, warmth extending throughout the forefoot to the ankle up to mid tibia, Hospital Course Hospital Course Patient was admitted to the hospital further evaluation and management of lower limb cellulitis with concerns for osteomyelitis. Podiatry was consulted. She was started on broad-spectrum antibiotics. She underwent excisional debridement at bedside at first on 11/20 with podiatry. Later MRI was done which was concerning for possible osteomyelitis involving medial portion of the head of proximal phalanx right hallux with surrounding cellulitis. She underwent deep I&D down to bone on 11/22. Her cultures during hospitalization with blood culture remain negative though wound cultures grew MRSA and group A strep. Urine culture also grew E. coli for which she has received A course of IV antibiotics. ID was consulted who recommended patient to be on IV vancomycin for next 6 weeks. Otherwise her hospitalization was unremarkable. She was found to have elevated blood sugars with A1c of more than 9. Safe discharge planning was discussed in detail with patient and patient's family who requested patient to be transition to SNF for further rehabilitation, wound care and IV antibiotics. She is being discharged in hemodynamically stable condition on IV vancomycin for next 6 weeks. She is to follow-up with podiatry and ID as an outpatient. Physical Exam Narrative: NEUROLOGICAL: Protective sensation intact 0/10 sites, tested with [place] Caleb monofilament to bilateral feet. DERMATOLOGICAL: Wound at the plantar medial aspect of the right hallux interphalangeal joint exposed to myofascial layer measures 2.2 cm x 1.9 cm x 0.3 cm with periwound erythema and proximal streaking to the level of the proximal leg more prominent anteriorly. Sanguinous crust at the posterior leg at the level of the Achilles without surrounding erythema, drainage, no underlying wound, no bogginess or fluctuance. MUSCULOSKELETAL: No pain to palpation or with debridement secondary to neuropathy. No crepitus with palpation of soft tissue right foot and leg. Smooth range of motion at the right hallux interphalangeal joint and right first metatarsal phalangeal joint without crepitus. Postdebridement Const: COMMON NORMALS: no acute distress, patient oriented x3 and alert GENERAL APPEARANCE: cooperative ORIENTATION/CONSCIOUSNESS: Yes awake, Yes oriented to person, Yes oriented to place and Yes oriented to time HENMT: COMMON NORMALS: normocephalic, atraumatic and oropharynx normal HEAD & SCALP: normocephalic and atraumatic FACE & SINUS: normal facial exam MOUTH: Normal oral and palatal mucosa present THROAT: posterior oropharynx normal Eye: COMMON NORMALS: Equal, round and reactive pupils present, EOMs intact bilaterally, conjunctivae normal and no scleral icterus GENERAL EYE: appearance normal, both eyes and all related structures ALIGNMENT: Yes alignment normal PERIORBITAL: periorbital findings normal CONJUNCTIVA: Yes conjunctivae normal PUPIL: Yes Equal, round and reactive pupils present Neck/C-Spine: COMMON NORMALS: full ROM and no JVD GENERAL: Yes normal visual inspection Lymph: LYMPHATIC: no lymphadenopathy noted Chest: COMMONS NORMALS: normal inspection of the chest Resp: COMMON NORMALS: normal respiratory effort, No retractions, No use of accessory muscles and clear to auscultation bilaterally EFFORT & INSPECTION: Yes able to speak in complete sentences and Yes symmetric chest movement AUSCULTATION: clear to auscultation bilaterally Cardio: COMMON NORMALS: no JVD, regular rate, regular rhythm, S1 normal heart sound present, S2 normal heart sound present, No murmurs present (Cardio) and Peripheral pulses 2+ throughout RATE: regular rate RHYTHM: regular rhythm HEART SOUNDS: S1 normal heart sound present and S2 normal heart sound present PERIPHERAL PULSES: Peripheral pulses 2+ throughout GI: COMMON NORMALS: Normal to inspection, nondistended, normoactive bowel sounds present, Soft to palpation, non-tender and No hepatosplenomegaly present INSPECTION: Yes normal to inspection PALPATION: Yes Soft to palpation and Yes No hepatosplenomegaly present RECTAL EXAM: deferred Neuro: COMMON NORMALS: patient oriented x3 and moves all extremities SENSORIUM/ORIENTATION: Yes alert, Yes oriented to person, Yes oriented to place and Yes oriented to time CRANIAL NERVES: Yes CN normal except as noted Psych: COMMON NORMALS: mental status grossly normal, Normal thought process present, cooperative, activity/motor behavior normal, denies homicidal ideation and denies suicidal ideation THOUGHT PROCESS: Normal thought process present Skin: OTHER: Urinary Catheter Management: [place]: Cath Placed During This Visit: yes Reason for Continuing Indwelling Catheter: Other Urinary Catheter Date of Insertion: 11/19/23 Discharge Data Studies Completed and Pending Completed Studies During Hospitalization Category Date Time Status CT lower leg RT wo con* [id number] Stat Cat Scan 11/19/23 20:36 Completed CXRP [XR chest 1V portable [id number]] Routine Exams 11/23/23 15:07 Completed XR foot RT min 3V* [id number] Stat Exams 11/19/23 19:11 Completed XR tibia fibula RT 2V [id number] Stat Exams 11/19/23 19:11 Completed MR foot RT wo/w con [id number] Routine MRI 11/21/23 07:00 Completed US venous duplex lower extremity RT [CV venous duplex Ultrasound 11/19/23 20:[place] [id number]] Stat Pending at discharge Category Date Time Status Blood Culture Stat Lab 11/19/23 19:45 Results Tissue Culture and Gram Stain Routine Lab 11/22/23 13:00 Results Radiology Impressions Foot X-Ray 11/19/23 19:11 IMPRESSION: 1. Soft tissue swelling in the big toe, dorsum of the foot and ankle. Suggestion of small wound in the plantar aspect big toe. 2. No osseous erosion. Further evaluation with MR may be considered if there is persistent suspicion for osteomyelitis. Tibia/Fibula X-Ray 11/19/23 19:11 IMPRESSION: Mild soft tissue swelling in the leg. No acute plain radiographic osseous abnormality. Lower Extremity CT 11/19/23 20:36 IMPRESSION: 1. Moderate subcutaneous edema in the big toe, small chronic plantar wound similar to 07/05/2023. Increased dorsal foot edema and anterior ankle edema . The findings are compatible with cellulitis, without drainable fluid collection. 2. No osseous erosion to suggest osteomyelitis at this time. Venous Duplex 11/19/23 20:36 IMPRESSION: No evidence of deep vein thrombosis. Microbiology 11/22/23 13:00 Bone Gram Stain - Final 11/22/23 13:00 Bone Tissue Culture - Preliminary 11/20/23 08:40 Toe - #1 Gram Stain - Final 11/20/23 08:40 Toe - #1 Wound Culture - Final Methicillin Resis Staph Aureus Strep pyogenes (grp a) 11/19/23 22:48 Urine,Clean Catch Urine Culture - Final Escherichia coli 11/19/23 19:45 Blood Blood Culture - Preliminary NEGATIVE TO DATE 11/19/23 19:50 Blood Blood Culture - Preliminary NEGATIVE TO DATE Laboratory Results WBC 11.72 10^3/uL (3.29-11.43) H 11/24/23 04:14 RBC 4.85 10^6/uL (3.85-5.65) 11/24/23 04:14 Hgb 11.90 g/dL (11.27-16.99) 11/24/23 04:14 Hct 37.6 % (36-47) 11/24/23 04:14 MCV 77.5 fl (85-98) L 11/24/23 04:14 MCH 24.5 pg (27-33) L 11/24/23 04:14 MCHC 31.6 g/dL (30-55) 11/24/23 04:14 RDW 15.3 % (12.1-15.1) H 11/24/23 04:14 Plt Count 655 10^3/cmm (157-399) H 11/24/23 04:14 MPV 8.9 fL (7.4-10.4) 11/24/23 04:14 Neut % (Auto) 48.4 % 11/24/23 04:14 Lymph % (Auto) 32.9 % 11/24/23 04:14 [place] % (Auto) 8.4 % 11/24/23 04:14 Eos % (Auto) 7.9 % 11/24/23 04:14 Baso % (Auto) 1.0 % 11/24/23 04:14 Neut # (Auto) 5.66 10^3/uL (1.8-7.7) 11/24/23 04:14 Lymph # (Auto) 3.9 10^3/uL (0.8-4.8) 11/24/23 04:14 [place] # (Auto) 1.0 10^3/uL (0.2-0.9) H 11/24/23 04:14 Eos # (Auto) 0.9 10^3/uL (0.0-0.8) H 11/24/23 04:14 Baso # (Auto) 0.1 10^3/uL (0.0-0.1) 11/24/23 04:14 Nucleated RBC % (auto) 0 % 11/24/23 04:14 Nucleated RBCs # 0.0 /100WBC 11/24/23 04:14 ESR 59 mm/hr (0-15) H 11/19/23 19:50 Sodium 137 mmol/L (136-145) 11/24/23 04:14 Potassium 4.3 mmol/L (3.5-5.1) 11/24/23 04:14 Chloride 101 mmol/L (98-107) 11/24/23 04:14 Carbon Dioxide 23 mmol/L (22-29) 11/24/23 04:14 Anion Gap 17.3 (5-19) 11/24/23 04:14 BUN 14 mg/dL (6-20) 11/24/23 04:14 Creatinine 0.5 mg/dL (0.5-0.9) 11/24/23 04:14 GFR Calculation 127.6 mL/min (90-130) 11/24/23 04:14 Glucose 238 mg/dL (65-115) H 11/24/23 04:14 POC Glucose 249 mg/dL (70-110) H 11/24/23 11:06 Estimat Average Glucose 232 11/19/23 19:50 Hemoglobin A1c 9.7 % (4.0-6.0) H 11/19/23 19:50 Calculated Osmolality 292 mOsm/kg (285-295) 11/24/23 04:14 Lactic Acid 1.0 mmol/L (0.5-2.2) 11/19/23 23:34 Calcium 9.3 mg/dL (8.5-10.5) 11/24/23 04:14 Phosphorus 3.8 mg/dL (2.5-4.5) 11/20/23 02:45 Magnesium 1.7 mg/dL (1.7-2.3) 11/20/23 02:45 Total Bilirubin 0.2 mg/dL (0.15-1.2) 11/24/23 04:14 AST 13 U/L (0-32) 11/24/23 04:14 ALT 14 U/L (0-33) 11/24/23 04:14 Alkaline Phosphatase 94 U/L (35-105) 11/24/23 04:14 Creatine Kinase 61 U/L (26-192) 11/19/23 20:35 Troponin T Baseline 26 ng/L (0-10) H 11/19/23 20:35 Troponin T 120 Minute 37.42 ng/L (0-10) H 11/19/23 22:25 Delta Troponin T 11.42 ABS# (0-10) H* 11/19/23 22:25 Troponin T Hi Sens 6Hr 35.96 ng/L (0-10) H 11/20/23 02:45 Troponin T Hi Sens 6Hr Delta 9.96 ng/L (0-12) 11/20/23 02:45 C-Reactive Protein 153.0 mg/L (0.0-4.9) H 11/19/23 19:50 NT-Pro-B Natriuret Pep Cancelled 11/19/23 22:25 Total Protein 7.6 g/dL (6.6-8.7) 11/24/23 04:14 Albumin 3.3 g/dL (3.5-5.2) L 11/24/23 04:14 Globulin 4.3 g/dL (1.3-4.6) 11/24/23 04:14 Triglycerides 135 mg/dL (0-150) 11/19/23 22:25 Cholesterol 166 mg/dL (0-200) 11/19/23 22:25 LDL Cholesterol, Calc 98 mg/dL (50-129) 11/19/23 22:25 HDL Cholesterol 41 mg/dL (60-100) L 11/19/23 22:25 LDL/HDL Ratio 2.39 RATIO (0.00-3.22) 11/19/23 22:25 Cholesterol/HDL Ratio 4.05 mg/dL (0.0-4.40) 11/19/23 22:25 Procalcitonin 0.17 ng/mL (0-0.5) 11/19/23 20:35 TSH 0.59 uIU/mL (0.27-4.20) 11/19/23 22:25 Urine Color Yellow (Yellow) 11/19/23 22:48 Urine Appearance Hazy (CLEAR) A 11/19/23 22:48 Urine pH 5 (5-7) 11/19/23 22:48 Ur Specific [place] 1.010 (1.005-1.030) 11/19/23 22:48 Urine Protein Trace (Negative) 11/19/23 22:48 Urine Glucose (UA) 4+ (Normal) H 11/19/23 22:48 Urine Ketones 1+ (Negative) H 11/19/23 22:48 Urine Blood Neg (Negative) 11/19/23 22:48 Urine Nitrate Positive (Negative) H 11/19/23 22:48 Urine Bilirubin Neg (Negative) 11/19/23 22:48 Urine Urobilinogen Norm mg/dL (Negative) 11/19/23 22:48 Ur Leukocyte Esterase Trace (Negative) H 11/19/23 22:48 Urine RBC 0-4 /hpf (0-2) H 11/19/23 22:48 Urine WBC 25-40 /hpf (0-5) H 11/19/23 22:48 Ur Squamous Epith Cells 0-4 /hpf (0-5) H 11/19/23 22:48 Amorphous Sediment 2+ /hpf 11/19/23 22:48 Urine Bacteria 2+ /hpf (NONE) H 11/19/23 22:48 Urine Mucus Trace /hpf 11/19/23 22:48 Vancomycin Trough 14.9 ug/mL (10-15) 11/23/23 22:53 Vitals Last Vital Signs Temp 98.3 F 11/24/23 11:24 Pulse 98 11/24/23 11:24 Resp 16 11/24/23 11:24 BP 102/69 11/24/23 11:24 Pulse Ox 95 11/24/23 11:24 O2 Del Method Room Air 11/24/23 11:24 O2 Flow Rate 2 11/20/23 20:10 Discharge Plan Discharge Patient Disposition: Xfer SNF Condition: Stable Prescriptions: New vancomycin-diluent combo no.1 1.25 gram/250 mL Piggyback 1,250 mg continuous IV infusion Q12H 40 Days Qty: 73771 0RF Continued albuterol sulfate 90 mcg/actuation HFA aerosol inhaler 2 puff inhalation Q6H PRN (Reason: shortness of breath or wheezing) Qty: 8.5 3RF Spiriva with HandiHaler 18 mcg capsule, w/inhalation device 1 cap inhalation DAILY 30 Days Qty: 30 3RF atorvastatin 80 mg tablet 80 mg PO QAM Qty: 30 3RF dulaglutide 0.75 mg/0.5 mL pen injector 0.75 mg SUBCUT Q7D Qty: 1 0RF duloxetine 60 mg capsule,delayed release(DR/EC) 60 mg PO DAILY Qty: 30 4RF Jardiance 25 mg tablet 25 mg PO DAILY Qty: 30 4RF Rx Instructions: 340 b ezetimibe 10 mg tablet 10 mg PO DAILY Qty: 30 4RF furosemide 40 mg tablet 40 mg PO DAILY PRN (Reason: Edema) Qty: 30 3RF hydroxyzine HCl 25 mg tablet 25 mg PO Q6H PRN (Reason: itching) Qty: 20 0RF isosorbide mononitrate 60 mg tablet extended release 24 hr 30 mg PO BID Qty: 60 4RF levetiracetam 500 mg tablet 500 mg PO BID Qty: 60 4RF losartan 50 mg tablet 50 mg PO DAILY@0800 Qty: 30 4RF metoprolol succinate 25 mg tablet extended release 24 hr 12.5 mg PO QAM Qty: 15 4RF pantoprazole 40 mg tablet,delayed release (DR/EC) 40 mg PO QAM Qty: 30 3RF (DME) pen needle, diabetic [Comfort EZ Pen [place]] 32 gauge x 5/32 needle See Rx Instructions .Route Qty: 100 2RF Rx Instructions: use 3times a day to inject insulin. (DME) pen needle, diabetic [Comfort EZ Pen [place]] 31 gauge x 5/16 needle See Rx Instructions .Route Qty: 100 6RF Rx Instructions: use daily with levemir quetiapine 200 mg tablet 200 mg PO BEDTIME Qty: 30 4RF Brilinta 90 mg tablet 90 mg PO BID Qty: 180 2RF nitroglycerin [Nitrostat] 0.4 mg tablet, sublingual 0.4 mg SUBLINGUAL Q5M PRN (Reason: Chest Pain) Qty: 30 4RF Rx Instructions: do not exceed 3 doses per episode (DME) Blood Glucose Test Strip See Rx Instructions .Route Qty: 50 3RF Rx Instructions: As directed accucheck test strips for accu check machine diphenhydramine HCl [Allergy (diphenhydramine)] 25 mg tablet 50 mg PO BID PRN (Reason: allergy symptoms) Qty: 90 0RF (DME) blood-glucose meter Misc See Rx Instructions .Route Qty: 1 0RF Rx Instructions: dailyAs directed (DME) Blood Glucose Test Strip See Rx Instructions .Route Qty: 100 0RF Rx Instructions: tid ac meals (DME) lancets Misc See Rx Instructions .Route Qty: 100 0RF Rx Instructions: 1 tid clotrimazole-betamethasone 1-0.05 % cream See Rx Instructions .ROUTE .COMPLEX Qty: 45 0RF Dose Instruction: APPLY TO THE AFFECTED AREA(S) topicaly TWICE DAILY FOR 14 DAYS Rx Instructions: APPLY TO THE AFFECTED AREA(S) topicaly TWICE DAILY FOR 14 DAYS nystatin 100,000 unit/gram cream 1 applic topical BID Qty: 30 0RF cyclobenzaprine 10 mg tablet 10 mg PO TID PRN (Reason: Muscle Spasm) Qty: 90 3RF aspirin 81 mg tablet,delayed release (DR/EC) 81 mg PO QAM Qty: 30 4RF ondansetron 4 mg Tablet,Disintegrating 4 mg PO Q6H PRN (Reason: Nausea And Vomiting) tramadol 50 mg tablet 50 mg PO Q8H PRN (Reason: pain) Qty: 20 0RF Changed metformin 500 mg tablet extended release 24 hr 100 mg PO BID Qty: 60 4RF Levemir FlexPen 100 unit/mL (3 mL) insulin pen 50 unit SUBCUT BIDWM Qty: 15 3RF Rx Instructions: Starts at 25. increase by 5 every 3 days. Discontinued fluconazole 150 mg tablet See Rx Instructions .ROUTE .COMPLEX 14 Days Qty: 5 0RF Rx Instructions: Take one tablet by mouth on day 1, 4, 7, 10, 14. Discharge Orders: Discharge Order (Routine); Ordered 11/24/23 Ordered By: Cornelius Joyce Referrals: [facility] [Outside] Laurel Eagle MD [Primary Care Provider] - Infectious Disease Group [facility] [Provider Group] - 1 month WOUND CARE CLINIC, [Staff Physician] - 1-3 days Discharge Diet: Cardiac and Diabetic Discharge Activity: Resume usual activity and Increase activity as tolerated Patient Instructions: Opioid Safety Activity Restrictions/Additional Instructions: Please follow-up with wound care as an outpatient at the earliest. Follow-up with ID clinic onsite appointment. You will be on vancomycin twice daily going forward. Weekly Vanco trough, CBC, CRP, creatinine, LFT to be followed up with ID clinic. Dose of Levemir has been changed to 50 units twice daily from 100 units once daily. Heel touch for transfers with postop shoe at the right foot Discharge Attestations Time Spent in Discharge Care*: greater than 30 min Specific Discharge Activities: educating patient, discussing with pcp/other providers, discussing with case assembler/social workers/dc planners, documenting/other paperwork and evaluating patient/reviewing data Status at Discharge: Cognitive status at discharge: mildly impaired cognition, Behavioral status at discharge: cooperative, Functional status at discharge: uses cane/walker, Overall status at discharge: patient is progressing back to baseline Quality Metrics Clinical Quality Measures [ No reported AMI, CVA or VTE this stay] Coding Level of Care Code 12808 Total time (in minutes) for Discharge: 60 Diagnoses Cellulitis of right foot L03.115 Osteomyelitis of ankle or foot, right, acute M86.171 Type 2 diabetes mellitus with diabetic autonomic (poly)neuropathy E11.43 PAD (peripheral artery disease) I73.9 Coronary artery disease involving [place] coronary artery of [place] heart without angina pectoris I25.10 Coronary Disease-Associated Artery/Lesion type: [place] artery Tribal vs. transplanted heart: [place] heart Associated angina: without angina Carotid stenosis, left I65.22 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 I65.23 Hyperlipidemia, mixed E78.2 NSTEMI (non-ST elevated myocardial infarction) I21.4
[2023-11-24] MEDS: HYDROcodone-acetaminophen 7.5-325 mg Tablet 1 TAB PO (12:09)
[2023-11-24] MEDS: vancomycin 1,250 MG/250 ML PIGGYBACK 166.800000000000011 MG IV (12:10)
--- NOTE | 2023-11-24 12:54 | P.PN_ITS ---
Subjective 2 Subjective: Patient seen bedside this a.m., she is in good spirits. Denying any pain to the right hallux states that pain medication is effective. She is hopeful for transfer to [facility]. PICC line is in place. Awaiting antibiotic selection. Vitals/I&O/Wt Last Vital Signs Temp 98.3 F 11/24/23 11:24 Pulse 98 11/24/23 11:24 Resp 16 11/24/23 11:24 BP 102/69 11/24/23 11:24 Pulse Ox 95 11/24/23 11:24 O2 Del Method Room Air 11/24/23 11:24 O2 Flow Rate 2 11/20/23 20:10 11/23/23 11/24/23 11/24/23 22:59 06:59 14:59 Intake Total 770 / 1550 780 / 2330 530 / 530 Output Total 600 / 1900 300 / 2200 Balance 170 / -350 480 / 130 530 / 530 Weight last 48 hrs Weight 213 lb Weight 214 lb 1 oz Physical Exam 2 Narrative: GENERAL: Patient is alert and oriented ?3 and in no acute distress. The following is a focused bilateral lower extremity exam. VASCULAR: Dorsalis pedis palpable bilaterally. Palpable posterior tibial arteries palpable. Capillary refill time less than 5 seconds to the distal hallux bilaterally. Calf is supple and nontender proximally and distally. Decreased pedal hair growth bilaterally. Mild pitting edema to the right lower extremity. NEUROLOGICAL: Protective sensation intact 0/10 sites, tested with [place] Caleb monofilament to bilateral feet. DERMATOLOGICAL: Dressings clean and dry, no strikethrough bleeding or drainage. Dressing left intact. Previously appreciated cellulitis of the right leg is significantly improving and subsiding. MUSCULOSKELETAL: No pain to palpation or with debridement secondary to neuropathy. No crepitus with palpation of soft tissue right foot and leg. Smooth range of motion at the right hallux interphalangeal joint and right first metatarsal phalangeal joint without crepitus. Urinary Catheter Management: [place]: Cath Placed During This Visit: yes Reason for Continuing Indwelling Catheter: Other Urinary Catheter Date of Insertion: 11/19/23 Data 11/24/23 04:14 11/24/23 04:14 Micro: Microbiology 11/22/23 13:00 Gram Stain - Final Bone Tissue Culture - Preliminary A&P Assessment and plan (1) Diabetic peripheral neuropathy associated with type 2 diabetes mellitus: (2) Non-pressure chronic ulcer of other part of right foot with necrosis of muscle: (3) Cellulitis of right lower extremity: (4) Acute osteomyelitis of right foot: Plan 58-year-old uncontrolled diabetic female presents with acute osteomyelitis right great toe with cellulitis streaking to the proximal right leg. 2 days status post incision and debridement down to bone right great toe performed 11/22/2023 Improvement in cellulitis at right leg Recommend continuation of empiric IV antibiotics, narrow antibiotic therapy once cultures yield further information Heel touch for transfers with postop shoe at the right foot. Okay for discharge from podiatry standpoint. Follow-up in podiatry clinic with Dr. Butt 12/02/2023 at 1:00 PM Discharge planning: PICC line and 6 weeks IV antibiotic therapy with home health outpatient Follow-up wound care clinic Would be a candidate for hyperbarics. Attestations 2 Medical Necessity Statement*: Acute osteomyelitis right great toe Coding Level of Care Code Acute Code for [facility] Diagnoses Diabetic peripheral neuropathy associated with type 2 diabetes mellitus E11.42 Non-pressure chronic ulcer of other part of right foot with necrosis of muscle L97.513 Cellulitis of right lower extremity L03.115 Acute osteomyelitis of right foot M86.171
[2023-11-24 13:09] LABS: SARS Covid-2 Antigen negative (Negative)
--- NOTE | 2023-11-24 13:25 | PC.NURSE ---
Report called to Bety at [facility]
--- NOTE | 2023-11-24 15:18 | PC.NURSE ---
Bety from [facility] called and verified that patient was to start taking 1000mg of Metformin BId instead of 500mg. Verfied with Dr. Joyce
--- NOTE | 2023-11-24 16:05 | P.CONIM_ITS ---
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 Also h/o right TKA in place. She also has a history of osteomyelitis of the right lateral 3 digits which was diagnosed in [facility]. It appears she was recommended amputation at that time but patient had refused and it was treated with 6 weeks of IV antibiotics. She has had intermittent recurrent cellulitis of her right lower lower extremity since 2021. Currently she was admitted on November 19, 2023 due to worsening wound over her great toe for which she has been following with wound care clinic. In reviewing the wound care clinic notes, it appears the wound has been present since July 2023. She had associated cellulitis at that time when the wound was first noted which was treated with oral linezolid. While it improved transiently in July, the wound appears to have resurfaced in August 2023. In spite of all ongoing wound care measures, her wound appears to have worsened earlier this month and she also developed increased erythema swelling and warmth extending through the forefoot up to the mid tibia level. Admission photographs are reviewed from podiatry notes. Level of cellulitis extends below the knee/prosthetic joint. Foot MRI on November 21, 2019 show showed extensive cellulitis surrounding the metatarsals with extension to the toes. Focal osteomyelitis involving the medialmost head of the proximal first phalanx was noted measuring 5 x 5 mm. She underwent incision and debridement down to the bone of the right great toe on November 22, 2023. Specimen was sent for Gram stain and culture, thus far there has been no growth. Of note cultures were obtained while patient had already been started on antibiotic treatment. From November 20, 2023 wound culture and Gram stain from the same wound had shown MRSA and group A strep. She is currently afebrile. Hemodynamically stable. White blood cell count has trended down from 30,000 upon admission to 11,000 currently. Blood cultures remain negative to date. Infectious disease service is consulted for antibiotic recommendations and duration. Review of Systems 2 General: Reports: 10 or more systems reviewed and unremarkable except in HPI and below Const: Denies: fever(s), chills or body aches Eyes: Denies: change in vision, blurry vision or photophobia ENMT: Reports: hoarseness; Denies: throat pain, enlarged tonsils, odynophagia or nasal congestion Card: Denies: chest pain, palpitations, irregular heart rhythm, edema, swelling of feet/ankles, lightheadedness, pre-syncope, dyspnea on exertion or orthopnea Resp: Denies: dyspnea, productive cough, non-productive cough, wheezing, stridor, pain on inspiration, change in phlegm color, hemoptysis or chest congestion GI: Denies: abdominal pain, nausea, vomiting, hematemesis, coffee ground emesis, dysphagia, heartburn, diarrhea, constipation, GI cramping, change in stool character, hematochezia or melena : Denies: flank pain, difficulty voiding, dysuria, urinary frequency, urinary urgency, urinary hesitancy or hematuria Musc: Denies: neck pain, back pain, extremity pain, joint swelling, joint warmth or deformity Neuro: Denies: headache(s), numbness in extremities, weakness in extremities, sensory changes, difficulty walking, frequent falls, dizziness, vertigo, behavioral changes, Slurred speech present or seizure-like activity Psych: Denies: anxiety, depression, suicidal ideation or homicidal ideation Endo: Denies: polyuria, polydipsia, tired all the time, cold intolerance or hot flashes Xavier/Lymph: Denies: easy bruising or easy bleeding Medications/Allergies Home Medications Medication Instructions Recorded Confirmed Last Taken Type blood sugar diagnostic (Blood #100 ea 12/27/22 11/20/23 Unknown Rx Glucose Test strips) blood-glucose meter #1 ea 12/27/22 11/20/23 Unknown Rx lancets #100 ea 12/27/22 11/20/23 Unknown Rx ondansetron 4 mg disintegrating 4 mg PO Q6H PRN Nausea And Vomiting 07/05/23 11/20/23 Unknown History tablet tramadol 50 mg tablet 50 mg PO Q8H PRN pain #20 tabs 08/01/23 11/20/23 Unknown Rx blood sugar diagnostic (Blood #50 ea 08/10/23 11/20/23 Unknown Rx Glucose Test strips) nitroglycerin 0.4 mg sublingual 0.4 mg sublingual Q5M PRN Chest 08/15/23 11/20/23 Unknown Rx tablet (Nitrostat) Pain #30 tabs diphenhydramine HCl 25 mg tablet 50 mg (2 x 25 mg) PO BID PRN 08/25/23 11/20/23 Unknown Rx (Allergy (diphenhydramine)) allergy symptoms #90 tabs albuterol sulfate 90 mcg/actuation 2 puff inhalation Q6H PRN 10/05/23 11/20/23 Unknown Rx aerosol inhaler shortness of breath or wheezing #8.5 grams atorvastatin 80 mg tablet 80 mg PO QAM #30 tabs 10/05/23 11/20/23 Unknown Rx dulaglutide 0.75 mg/0.5 mL 0.75 mg (0.5 mL) SUBCUT Q7D #1 mL 10/05/23 11/20/23 Unknown Rx subcutaneous pen injector duloxetine 60 mg capsule,delayed 60 mg PO DAILY #30 caps 10/05/23 11/20/23 Unknown Rx release empagliflozin 25 mg tablet 25 mg PO DAILY #30 tabs 10/05/23 11/20/23 Unknown Rx (Jardiance) ezetimibe 10 mg tablet 10 mg PO DAILY #30 tabs 10/05/23 11/20/23 Unknown Rx furosemide 40 mg tablet 40 mg PO DAILY PRN Edema #30 tabs 10/05/23 11/20/23 Unknown Rx hydroxyzine HCl 25 mg tablet 25 mg PO Q6H PRN itching #20 tabs 10/05/23 11/20/23 Unknown Rx isosorbide mononitrate 60 mg 30 mg (1/2 x 60 mg) PO BID #60 tabs 10/05/23 11/20/23 Unknown Rx tablet,extended release 24 hr levetiracetam 500 mg tablet 500 mg PO BID #60 tabs 10/05/23 11/20/23 Unknown Rx losartan 50 mg tablet 50 mg PO DAILY@0800 #30 tabs 10/05/23 11/20/23 Unknown Rx metoprolol succinate 25 mg 12.5 mg (1/2 x 25 mg) PO QAM #15 10/05/23 11/20/23 Unknown Rx tablet,extended release 24 hr tabs pantoprazole 40 mg tablet,delayed 40 mg PO QAM #30 tabs 10/05/23 11/20/23 Unknown Rx release pen needle, diabetic 31 gauge x #100 ea 10/05/23 11/20/23 Unknown Rx 5/16 (Comfort EZ Pen Rough And Ready) pen needle, diabetic 32 gauge x #100 ea 10/05/23 11/20/23 Unknown Rx 5/32 (Comfort EZ Pen Rough And Ready) quetiapine 200 mg tablet 200 mg PO BEDTIME #30 tabs 10/05/23 11/20/23 Unknown Rx ticagrelor 90 mg tablet (Brilinta) 90 mg PO BID #180 tabs 10/05/23 11/20/23 Unknown Rx tiotropium bromide 18 mcg capsule 1 cap inhalation DAILY 30 days #30 10/05/23 11/20/23 Unknown Rx with inhalation device (Spiriva inhalations with HandiHaler) clotrimazole-betamethasone 1 See Rx Instructions .Route 11/02/23 11/20/23 Unknown Rx %-0.05 % topical cream .COMPLEX #45 grams nystatin 100,000 unit/gram topical 1 applic topical BID #30 grams 11/02/23 11/20/23 Unknown Rx cream aspirin 81 mg tablet,delayed 81 mg PO QAM #30 tabs 11/22/23 Unknown Rx release cyclobenzaprine 10 mg tablet 10 mg PO TID PRN Muscle Spasm #90 11/22/23 Unknown Rx tabs insulin detemir U-100 100 unit/mL 50 unit (0.5 mL) SUBCUT BIDWM #15 11/24/23 11/20/23 Unknown Rx (3 mL) subcutaneous pen (Levemir mL FlexPen) metformin 500 mg tablet,extended 100 mg (0.2 x 500 mg) PO BID #60 11/24/23 11/20/23 Unknown Rx release 24 hr tabs vancomycin 1.25 gram/250 mL in 1,250 mg (250 mL) continuous IV 11/24/23 Unknown Rx diluent combination IV piggyback infusion Q12H 40 days #20,000 mL Allergies Allergy/AdvReac Type Severity Reaction Status Date / Time fentanyl Allergy Unknown ALGY-Difficulty Verified 10/05/23 13:52 Breathing adhesive Allergy Unknown Verified 10/05/23 13:52 cephalexin [From Keflex] Allergy ADR-Itching Verified 10/05/23 13:52 clindamycin Allergy ADR-Itching Verified 10/05/23 13:52 codeine Allergy Unknown Verified 10/05/23 13:52 hydrocodone Allergy Unknown Verified 10/05/23 13:52 latex Allergy ALGY-Swell Verified 10/05/23 13:52 Lip/Tongue/Throat naproxen [From Naprosyn] Allergy Unknown Verified 10/05/23 13:52 nut - unspecified Allergy ALGY-Anaphy Verified 10/05/23 13:52 laxis oxycodone [From Roxicodone] Allergy ADR-Muscle Verified 10/05/23 13:52 Pain Penicillins Allergy Unknown Verified 10/05/23 13:52 tramadol Allergy ADR-Itching Verified 10/05/23 13:52 PFSH Acute 2 PFSH: Medical History COPD (chronic obstructive pulmonary disease) Hypersensitivity pneumonitis Rheumatoid arthritis Infection of total left knee replacement Right wrist deformity History of stroke Acute exacerbation of chronic obstructive pulmonary disease (COPD) Acute encephalopathy Acute respiratory failure with hypoxia Acute alteration in mental status Sepsis Diabetes Sacral pressure ulcer Cellulitis of gluteal region Seizure disorder Hypoxemia Seizure UTI (urinary tract infection) Chronic, continuous use of opioids Seizures Acute and chronic respiratory failure with hypoxia Pneumonia Pneumonia Acute hypoxemic respiratory failure Stenosis of left internal carotid artery with cerebral infarction Diabetic foot ulcer Right arm weakness Hoarseness of voice Sepsis Numbness and tingling in both hands Urinary tract infection Chest pain Syncope Needs flu shot Carpal tunnel syndrome, right Urinary incontinence Chronic knee pain Abnormal stress test CAD (coronary artery disease) Acute exacerbation of CHF (congestive heart failure) Unstable angina COPD exacerbation Exposure to COVID-19 virus Compression fracture of L2 lumbar vertebra Right hip pain Dyspnea (HFpEF) heart failure with preserved eje ction fraction Candidiasis of vagina History of CVA (cerebrovascular accident) Elevated troponin Pericardial effusion Pressure ulcer Prosthetic joint infection Anemia Septic arthritis of knee, left Osteoarthritis of left knee History of hypoglycemic coma Obesity (BMI 35.0-39.9 without comorbidity) Peripheral sensory neuropathy due to type 2 diabetes mellitus Coronary artery disease due to type 2 diabetes mellitus Diabetes type 2, uncontrolled Neuropathy Insomnia Fibromyalgia, primary Hyperlipidemia, mixed CVA (cerebral vascular accident) Dyslipidemia Leukocytosis NSTEMI (non-ST elevated myocardial infarction) Thought to be secondary to plaque rupture. Angiogram July 04 no flow- limiting lesions, or restenosis of previous stent from April 2020 Chronic obstructive pulmonary disease, unspecified Vitamin D deficiency Type 2 diabetes mellitus with diabetic autonomic (poly)neuropathy Essential hypertension Encounter for long-term opiate analgesic use Opioid contract exists Current every day smoker Chronic pain of left knee Low back pain radiating to both legs Intervertebral disc disorder of lumbar region with myelopathy Lumbosacral spondylosis without myelopathy Osteoarthritis of spine at multiple levels Chronic left-sided low back pain Surgical History Status post left knee replacement History of coronary angiogram Angiogram April 2020 with 90% circumflex lesion, drug-eluting stent placed by Dr. Jerome Status post lumbar laminectomy S/P lumbar fusion DR. Shreya ZAYAS IN [place], [place] L4-L5, L5-S1 S/p bilateral carpal tunnel release History of arthroscopic surgery of elbow BILATERAL S/P hysterectomy S/P knee surgery RIGHT Family History Other CAD (coronary artery disease) Cancer Diabetes Social History Smoking and tobacco/nicotine status: current every day tobacco/nicotine user cigarettes Packs smoked per day: 0.5 Years cigarettes smoked: 10 [ Other cigarette details: PER PATIENT REPORT] Alcohol intake: former Substance/Drug Use: never Caregiver/support person: No Lives independently: Yes Household members: family and other Details: son Housing: Manufactured/Mobile home Marital status: Unknown Marital status details: She and son state she is not service: No Current occupational status: unemployed Pets and animals: Yes Do you think of yourself as: Straight/Heterosexual Current gender identity: Female Vitals/I&O/Wt Last Vital Signs Temp 98.3 F 11/24/23 15:00 Pulse 98 11/24/23 15:00 Resp 16 11/24/23 15:00 BP 102/69 11/24/23 15:00 Pulse Ox 95 11/24/23 15:00 O2 Del Method Room Air 11/24/23 11:24 O2 Flow Rate 2 11/20/23 20:10 11/24/23 11/24/23 11/24/23 06:59 14:59 22:59 Intake Total 780 / 2330 530 / 530 Output Total 300 / 2200 Balance 480 / 130 530 / 530 Weight last 48 hrs Weight 96.615 kg Weight 97.097 kg Physical Exam 2 Narrative: General: No acute distress, AO x3 HEENT: PERRLA, pupils bilaterally equal and reactive, pallors not present Chest: Normal vesicular breath sounds, no added sounds, equal good air entry bilaterally CVS: S1-S2 regular, no murmurs, no tachycardia, no gallops, no rubs Abdomen: Soft, nontender, no organomegaly, bowel sounds present Neuro: No focal deficits, no facial deformity, AO x3, power 5/5 in all limbs Urinary Catheter Management: [place]: Cath Placed During This Visit: yes Reason for Continuing Indwelling Catheter: Other Urinary Catheter Date of Insertion: 11/19/23 Data 11/24/23 04:14 11/24/23 04:14 Micro: Microbiology 11/22/23 13:00 Gram Stain - Final Bone Tissue Culture - Preliminary Spec #: [id number] Nikki: 11/20/23 Status: COMP Req #: [id number] Recd: 11/20/23-[address]: Luis Butt DPM Src: Toe SpDesc: #1 Ordered: WC and GS Comments: Comment Right Great toe wound Procedure Result Verified Site Gram Stain Final 11/20/23-165 Result NO WHITE BLOOD CELLS SEEN NO ORGANISMS SEEN Wound Culture Final 11/22/23-1529 Organism 1 Methicillin Resis Staph Aureus Growth HEAVY Organism 2 Strep pyogenes (grp a) Growth HEAVY Strep Typing Strep Typing DAY 2 CRITICAL RESULT YES/NO: YES CRITICAL CALLED BY: ANUPAMA TO AND READ BACK BY: DORINA DATE: 11/21/23 TIME: 1607 MRSA S PYOG (A) M.I.C. RX M.I.C. RX --------- ------ --------- ------ * Ampicillin >8 R * Azithromycin >2 R * Cefepime <=0.25 S * Ceftriaxone <=0.25 S * Ciprofloxacin >2 R * Clindamycin <=0.5 S >0.5 R * Erythromycin <=0.5 S >0.5 R * Gentamicin <=4 S * Levofloxacin >4 R <=0.25 S * Linezolid 2 S * Oxacillin >2 R * Penicillin >8 R * Rifampin <=1 S * Tetracycline <=4 S >4 R * Trimethoprim/Sulfamethoxazole <=0.5/9.5 S Vancomycin 2 S 0.5 S Daptomycin 1 S A&P Assessment and plan (1) Acute osteomyelitis of right foot: (2) Cellulitis: (3) History of removal of joint prosthesis of knee due to infection: (4) Vulvovaginal candidiasis: Plan 58-year-old lady with multiple comorbidities as outlined above, history of recurrent MRSA cellulitis, 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 Status post I&D on November 22, 2023. Intraoperative cultures taken on antibiotics thus far negative to date. Tissue culture and Gram stain taken on showing group A strep and MRSA. Patient has been on treatment with vancomycin and meropenem. Blood cultures remain negative to date. PICC line placed yesterday to facilitate long-term antibiotics. Plan: Discontinue Merrem Currently obtained adequate trough of 14.9 on vancomycin 1250 mg every 12 hours. Continue same dose at discharge. Anticipate treatment for at least 6 weeks (11/22-01/03/24) While on the above treatment, obtain weekly labs including CBC, LFT, creatinine, vancomycin trough and fax to the infectious disease clinic. PICC line placed yesterday to facilitate above antibiotic course. Follow-up in ID clinic in 1 month. Patient also complaining of vulvovaginal candidiasis at this time. Start fluconazole 100 mg daily for the next 3 days. As needed refills provided as patient has a history of recurrent vulvovaginal candidiasis while on antibiotic therapy. On outpatient follow-up will likely need to consider chronic suppressive therapy for recurrent cellulitis and attempts at decolonization. Consult Attestations 2 Medical Necessity Statement: Per admitting Coding Level of Care Code Acute Code for Chg Fwd High MDM includes number and complexity of problems actively addressed during encounter, amount and/or complexity of data reviewed/ordered and described risk of complication, morbidity or mortality of management as documented Diagnoses Acute osteomyelitis of right foot M86.171 Cellulitis L03.90 History of removal of joint prosthesis of knee due to infection Z98.890; Z86.19 Vulvovaginal candidiasis B37.31
== END 2023-11-24 15:00 | disposition skilled nursing facility (03) | DRG 623 ==
LOC: ER 22:51 → MEDSURG 23:03
PROVIDERS: Internal Medicine; Podiatrist Foot & Ankle Surgery; Admitting Provider Family Medicine; Emergency Provider Nurse Practitioner; PCP Family Medicine; Visit Provider Student in an Organized Health Care Education/Training Program
PROC: 0SBP0ZZ Excision of Right Toe Phalangeal Joint, Open Approach (ICD-10-PCS; principal; 2023-11-22 12:55)
DX: E11.69 Type 2 diabetes mellitus with other specified complication (principal); E87.1 Hypo-osmolality and hyponatremia; I24.89 Other forms of acute ischemic heart disease; M86.171 Other acute osteomyelitis, right ankle and foot; L03.115 Cellulitis of right lower limb; I50.32 Chronic diastolic (congestive) heart failure; J96.10 Chronic respiratory failure, unspecified whether with hypoxia or hypercapnia; J44.9 Chronic obstructive pulmonary disease, unspecified; E11.65 Type 2 diabetes mellitus with hyperglycemia; Z79.4 Long term (current) use of insulin; E11.42 Type 2 diabetes mellitus with diabetic polyneuropathy; I25.10 Atherosclerotic heart disease of native coronary artery without angina pectoris; Z95.5 Presence of coronary angioplasty implant and graft; I11.0 Hypertensive heart disease with heart failure; E78.2 Mixed hyperlipidemia; I25.2 Old myocardial infarction; G40.909 Epilepsy, unspecified, not intractable, without status epilepticus; F17.210 Nicotine dependence, cigarettes, uncomplicated; E11.51 Type 2 diabetes mellitus with diabetic peripheral angiopathy without gangrene; B95.62 Methicillin resistant Staphylococcus aureus infection as the cause of diseases classified elsewhere; B95.0 Streptococcus, group A, as the cause of diseases classified elsewhere; B96.20 Unspecified Escherichia coli [E. coli] as the cause of diseases classified elsewhere; B37.31 Acute candidiasis of vulva and vagina; E11.628 Type 2 diabetes mellitus with other skin complications; E11.621 Type 2 diabetes mellitus with foot ulcer; L97.514 Non-pressure chronic ulcer of other part of right foot with necrosis of bone; Z79.84 Long term (current) use of oral hypoglycemic drugs; E11.622 Type 2 diabetes mellitus with other skin ulcer; Z99.81 Dependence on supplemental oxygen; Z79.82 Long term (current) use of aspirin; Z79.891 Long term (current) use of opiate analgesic; E87.8 Other disorders of electrolyte and fluid balance, not elsewhere classified
CPT/HCPCS: 36415; 36416; 36573; 51702; 71045; 73590; 73630; 73700; 73720; 80048; 80053; 80061; 80202; 81001; 82550; 82962; 83036; 83605; 83735; 83880; 84100; 84145; 84443; 84484; 85025; 85651; 86140; 87040; 87070; 87075; 87077; 87086; 87176; 87186; 87205; 87426; 93005; 93971; 94664; 96365; 96367; 96372; 96375; 96376; 97161; 97165; 99285; A9577; J1650; J1815; J2185; J2270; J2704; J3370; J3372; J3475; J3490; J7030; L3260

== ENCOUNTER → 2024-01-09 15:14 | Outpatient (BNVA) | payer MEDICARE, MEDICAID, SELFPAY | PROVIDERS: PCP Family Medicine; Visit Provider Internal Medicine | DX: E11.51 Type 2 diabetes mellitus with diabetic peripheral angiopathy without gangrene (principal); I65.22 Occlusion and stenosis of left carotid artery; I11.0 Hypertensive heart disease with heart failure; I50.30 Unspecified diastolic (congestive) heart failure; I25.10 Atherosclerotic heart disease of native coronary artery without angina pectoris; E11.65 Type 2 diabetes mellitus with hyperglycemia; J44.9 Chronic obstructive pulmonary disease, unspecified; Z86.73 Personal history of transient ischemic attack (TIA), and cerebral infarction without residual deficits; F17.210 Nicotine dependence, cigarettes, uncomplicated; Z79.4 Long term (current) use of insulin | CPT/HCPCS: 99214 ==

== ENCOUNTER → 2024-01-12 13:03 | Outpatient (BNVA) | payer MEDICARE, MEDICAID, SELFPAY | PROVIDERS: PCP Family Medicine; Visit Provider Thoracic Surgery (Cardiothoracic Vascular Surgery) | DX: E11.52 Type 2 diabetes mellitus with diabetic peripheral angiopathy with gangrene (principal); E11.621 Type 2 diabetes mellitus with foot ulcer; L97.511 Non-pressure chronic ulcer of other part of right foot limited to breakdown of skin | CPT/HCPCS: 97597; 99213 ==

== ENCOUNTER → 2024-01-24 10:11 | Outpatient (BNVA) | payer MEDICARE, MEDICAID, SELFPAY | PROVIDERS: PCP Family Medicine; Visit Provider Student in an Organized Health Care Education/Training Program | DX: L03.115 Cellulitis of right lower limb (principal); M86.171 Other acute osteomyelitis, right ankle and foot; E11.43 Type 2 diabetes mellitus with diabetic autonomic (poly)neuropathy | CPT/HCPCS: 36415; 85651; 86140; 87070; 87075; 87077; 87186; 87205; 97597; 99215 ==

== ENCOUNTER 2024-01-26 13:36 | Outpatient (CLI) | payer MEDICARE, MEDICAID, SELFPAY ==
--- NOTE | 2024-01-26 13:45 | USCV_ITS ---
Mayra Ascencio Age: 58 Gender: F : 1965 Exam Date: 01/26/2024 13:50 Ordering Phys: Brad Lyles M.D ([email or web address]) Technologist: Exam Location: [facility] [place] Indication: pad Risk Factors: Previous Vascular Surgery: RIGHT LEFT BP: / BP: 148.0/ 85.00 0 Waveform Velocity (cm/s) Velocity (cm/s) Waveform Biphasic 185.0 Iliac Prox 147.0 Triphasic Biphasic 178.0 Iliac Mid 136.0 Triphasic Biphasic 316.0 Iliac Distal 157.0 Triphasic Monophasic 291.0 ASSISTANT PROFESSOR OF ECONOMICS 129.0 Triphasic Biphasic 137.0 SFA Prox 99.0 Triphasic Biphasic 118.0 SFA Mid 101.0 Triphasic Biphasic 121.0 SFA Dist 121.0 Triphasic Monophasic 42.0 POP 67.0 Biphasic Monophasic 42.0 DIRECTOR OF HEALTH CARE MARKETING 63.0 Biphasic Monophasic 61.0 DPA 24.0 Biphasic 0.6 FIFI 0.8 FINDINGS Resting FIFI 0.6 on the right side and 0.8 on the left side Elevated velocity at the level of the right distal iliac and common femoral Mild to moderate diffuse plaque in the iliac and femoral artery on the right side. Mild diffuse and disease in the left iliac and femoral artery CONCLUSIONS 1. Abnormal resting FIFI of 0 .6 on the right side, suggesting moderate peripheral artery disease. Elevated velocity in the right distal iliac and common femoral suggesting greater than 50% stenosis 2. Abnormal resting FIFI of 0.8 on the left side suggesting mild peripheral artery disease. Mild diffuse plaque in the left iliac and femoral arteries No similar previous studies are available for comparison Dr Troy Joyce MD [facility] (Electronically Signed) Final Date: 30 January 2024 09:36 S
== END 2024-01-26 13:37 | disposition home or self-care (01) ==
LOC: RAD 13:36
PROVIDERS: PCP Family Medicine; Visit Provider Internal Medicine
DX: M79.604 Pain in right leg (principal); M79.605 Pain in left leg
CPT/HCPCS: 93925

== ENCOUNTER 2024-02-10 19:49 | Emergency (ER) | payer MEDICARE, MEDICAID, SELFPAY ==
[2024-02-10 19:52] VITALS: BP 158/83; PULSE 90; RESP 18; O2SAT 98
--- NOTE | 2024-02-10 21:21 | ED_ITS ---
HPI - Extremity Problem 2 General: Chief complaint: Extremity Problem,Nontraumatic Stated complaint: Right foot pain Time Seen by Provider: 02/10/24 20:36 History of Present Illness: Patient presents to the ER with complaints of right big toe wound worsening redness swelling and pain. Patient says she has chronic wound there she sees Dr. Butt and Dr. Gresham for such as MRSA and strep and her bone. Patient is on long-term antibiotics. Patient says the pain is worst over the last several days and she cannot take it anymore. Per reading Dr. Gresham's last note on 01/24/2024 she obtained inflammatory markers and was consider an MRI of the foot for persistent osteomyelitis, she did start doxycycline 100 mg twice a day as suppressive therapy and fluconazole for thrush because of the antibiotic usage, she also obtained a Gram stain and wound culture of the wound. On that visit the CRP was 21.2 and the sed rate was 39. The culture grew out Proteus mirabilis and MRSA, sensitivities and cultures reviewed. 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 COPD (chronic obstructive pulmonary disease) Hypersensitivity pneumonitis Rheumatoid arthritis Infection of total left knee replacement Right wrist deformity History of stroke Acute exacerbation of chronic obstructive pulmonary disease (COPD) Acute encephalopathy Acute respiratory failure with hypoxia Acute alteration in mental status Sepsis Diabetes Sacral pressure ulcer Cellulitis of gluteal region Seizure disorder Hypoxemia Seizure UTI (urinary tract infection) Chronic, continuous use of opioids Seizures Acute and chronic respiratory failure with hypoxia Pneumonia Pneumonia Acute hypoxemic respiratory failure Stenosis of left internal carotid artery with cerebral infarction Diabetic foot ulcer Right arm weakness Hoarseness of voice Sepsis Numbness and tingling in both hands Urinary tract infection Chest pain Syncope Needs flu shot Carpal tunnel syndrome, right Urinary incontinence Chronic knee pain Abnormal stress test CAD (coronary artery disease) Acute exacerbation of CHF (congestive heart failure) Unstable angina COPD exacerbation Exposure to COVID-19 virus Compression fracture of L2 lumbar vertebra Right hip pain Dyspnea (HFpEF) heart failure with preserved eje ction fraction Candidiasis of vagina History of CVA (cerebrovascular accident) Elevated troponin Pericardial effusion Pressure ulcer Prosthetic joint infection Anemia Septic arthritis of knee, left Osteoarthritis of left knee History of hypoglycemic coma Obesity (BMI 35.0-39.9 without comorbidity) Peripheral sensory neuropathy due to type 2 diabetes mellitus Coronary artery disease due to type 2 diabetes mellitus Diabetes type 2, uncontrolled Neuropathy Insomnia Fibromyalgia, primary Hyperlipidemia, mixed CVA (cerebral vascular accident) Dyslipidemia Leukocytosis NSTEMI (non-ST elevated myocardial infarction) Thought to be secondary to plaque rupture. Angiogram July 04 no flow- limiting lesions, or restenosis of previous stent from April 2020 Chronic obstructive pulmonary disease, unspecified Vitamin D deficiency Type 2 diabetes mellitus with diabetic autonomic (poly)neuropathy Essential hypertension Encounter for long-term opiate analgesic use Opioid contract exists Current every day smoker Chronic pain of left knee Low back pain radiating to both legs Intervertebral disc disorder of lumbar region with myelopathy Lumbosacral spondylosis without myelopathy Osteoarthritis of spine at multiple levels Chronic left-sided low back pain Surgical History Status post left knee replacement History of coronary angiogram Angiogram April 2020 with 90% circumflex lesion, drug-eluting stent placed by Dr. Jerome Status post lumbar laminectomy S/P lumbar fusion DR. Shreya ZAYAS IN [place], [place] L4-L5, L5-S1 S/p bilateral carpal tunnel release History of arthroscopic surgery of elbow BILATERAL S/P hysterectomy S/P knee surgery RIGHT Family History Other CAD (coronary artery disease) Cancer Diabetes Social History Smoking and tobacco/nicotine status: current every day tobacco/nicotine user cigarettes Packs smoked per day: 0.5 Years cigarettes smoked: 10 [ Other cigarette details: PER PATIENT REPORT] Alcohol intake: former Substance/Drug Use: never Caregiver/support person: Yes Lives independently: No Housing: Residential Marital status: Unknown Marital status details: She and son state she is not service: No Current occupational status: unemployed Pets and animals: Yes Do you think of yourself as: Straight/Heterosexual Current gender identity: Female Physical Exam 2 Const: COMMON NORMALS: no acute distress, average body habitus, patient oriented x3, no limitations, healthy appearing, alert and well nourished HENMT: COMMON NORMALS: normocephalic, atraumatic, hearing grossly normal bilaterally, external ears normal, Normal external nose present, moist oral mucous membranes and oropharynx normal HEAD & SCALP: normocephalic and atraumatic NOSE: Normal external nose present EXTERNAL EAR: Yes external ears normal Neck/C-Spine: COMMON NORMALS: no JVD Chest: COMMONS NORMALS: normal inspection of the chest and normal palpation of entire chest wall Resp: COMMON NORMALS: normal respiratory effort, No retractions, No use of accessory muscles and clear to auscultation bilaterally AUSCULTATION: clear to auscultation bilaterally Cardio: COMMON NORMALS: no JVD, regular rate, regular rhythm, S1 normal heart sound present, S2 normal heart sound present, No gallops present (Cardio), No clicks present (Cardio), No murmurs present (Cardio) and No rub (Cardio) R ATE: regular rate RHYTHM: regular rhythm HEART SOUNDS: S1 normal heart sound present and S2 normal heart sound present GI: COMMON NORMALS: Normal to inspection, nondistended, normoactive bowel sounds present, Soft to palpation, non-tender, No hepatosplenomegaly present and no masses PALPATION: Yes Soft to palpation and Yes No hepatosplenomegaly present Extremity: NARRATIVE EXTREMITY EXAM: Mild erythema swelling and sloughing of the skin on the right great toe, no streaking up into the foot, no odor or purulent drainage noted. Possible lesion on the second toe lateral side appearance of a callus currently. Neuro: COMMON NORMALS: patient oriented x3 SENSORIUM/ORIENTATION: Yes alert Course 2 Vital Signs: Vital signs: Vital Signs Pulse Rate 91 02/10/24 22:46 Respiratory Rate 16 02/10/24 22:46 Blood Pressure 135/77 02/10/24 22:46 Pulse Oximetry 94 02/10/24 22:46 Oxygen Delivery Me thod Room Air 02/10/24 22:12 MDM - Extremity (Nontraumatic) Medical Decision Making Lab work was obtained which revealed a white count of 14.2, glucose 249, sed rate 22, CRP of 3.0, procalcitonin 0.06, metabolic panel benign, patient was given 2 doses of 4 mg of morphine, and 1 dose of Zofran 4 mg all IM. Per the patient's medicine list she is on doxycycline and tramadol. We will continue these medicines. Will have the patient follow-up with wound care as already prescribed. Lab Data 02/10/24 21:16 04/26/24 21:16 Laboratory Results WBC 14.28 10^3/uL (3.29-11.43) H 02/10/24 21:16 RBC 5.22 10^6/uL (3.85-5.65) 02/10/24 21:16 Hgb 12.30 g/dL (11.27-16.99) 02/10/24 21:16 Hct 39.2 % (36-47) 02/10/24 21:16 MCV 75.1 fl (85-98) L 02/10/24 21:16 MCH 23.6 pg (27-33) L 02/10/24 21:16 MCHC 31.4 g/dL (30-55) 02/10/24 21:16 RDW 16.3 % (12.1-15.1) H 02/10/24 21:16 Plt Count 574 10^3/cmm (157-399) H 02/10/24 21:16 MPV 9.5 fL (7.4-10.4) 02/10/24 21:16 Neut % (Auto) 35.9 % 02/10/24 21:16 Lymph % (Auto) 49.4 % 02/10/24 21:16 Reeves % (Auto) 5.4 % 02/10/24 21:16 Eos % (Auto) 7.2 % 02/10/24 21:16 Baso % (Auto) 0.7 % 02/10/24 21:16 Neut # (Auto) 5.12 10^3/uL (1.8-7.7) 02/10/24 21:16 Lymph # (Auto) 7.1 10^3/uL (0.8-4.8) H 02/10/24 21:16 Reeves # (Auto) 0.8 10^3/uL (0.2-0.9) 02/10/24 21:16 Eos # (Auto) 1.0 10^3/uL (0.0-0.8) H 02/10/24 21:16 Baso # (Auto) 0.1 10^3/uL (0.0-0.1) 02/10/24 21:16 Nucleated RBC % (auto) 0 % 02/10/24 21:16 Nucleated RBCs # 0.0 /100WBC 02/10/24 21:16 ESR 22 mm/hr (0-15) H 02/10/24 21:16 Sodium 139 mmol/L (136-145) 02/10/24 21:16 Potassium 4.6 mmol/L (3.5-5.1) 02/10/24 21:16 Chloride 103 mmol/L (98-107) 02/10/24 21:16 Carbon Dioxide 20 mmol/L (22-29) L 02/10/24 21:16 Anion Gap 20.6 (5-19) H 02/10/24 21:16 BUN 12 mg/dL (6-20) 02/10/24 21:16 Creatinine 0.7 mg/dL (0.5-0.9) 02/10/24 21:16 GFR Calculation 86.6 mL/min (90-130) L 02/10/24 21:16 Glucose 249 mg/dL (65-115) H 02/10/24 21:16 Calculated Osmolality 296 mOsm/kg (285-295) H 02/10/24 21:16 Calcium 9.5 mg/dL (8.5-10.5) 02/10/24 21:16 Total Bilirubin 0.2 mg/dL (0.15-1.2) 02/10/24 21:16 AST 5 U/L (0-32) 02/10/24 21:16 ALT < 5 U/L (0-33) 02/10/24 21:16 Alkaline Phosphatase 104 U/L (35-105) 02/10/24 21:16 C-Reactive Protein 3.0 mg/L (0.0-4.9) 02/10/24 21:16 Total Protein 7.2 g/dL (6.6-8.7) 02/10/24 21:16 Albumin 3.6 g/dL (3.5-5.2) 02/10/24 21:16 Globulin 3.6 g/dL (1.3-4.6) 02/10/24 21:16 Procalcitonin 0.06 ng/mL (0-0.5) 02/10/24 21:16 All radiology interpretation(s) finalized by discharge Discharge Plan Discharge Patient Disposition: Home Clinical Impression: Diabetic ulcer of right foot Qualifiers: Diabetic foot ulcer location: toe Diabetes mellitus type: type 2 Non-pressure ulcer stage: with necrosis of bone Qualified Code(s): E11.621 - Type 2 diabetes mellitus with foot ulcer Condition: Stable Prescriptions: No Action ezetimibe 10 mg tablet 10 mg PO DAILY Qty: 30 4RF (DME) pen needle, diabetic [Comfort EZ Pen Benton] 32 gauge x 5/32 needle See Rx Instructions .Route Qty: 100 2RF Rx Instructions: use 3times a day to inject insulin. (DME) pen needle, diabetic [Comfort EZ Pen Benton] 31 gauge x 5/16 needle See Rx Instructions .Route Qty: 100 6RF Rx Instructions: use daily with levemir lidocaine HCl [Lidocaine Viscous] 2 % solution 1 applic topical ONCE Qty: 1 0RF Jardiance 25 mg tablet 25 mg PO DAILY Qty: 30 4RF Rx Instructions: 340 b fluconazole 150 mg tablet 150 mg PO DAILY 3 Days Qty: 3 0RF nystatin 100,000 unit/gram cream 1 applic topical BID Qty: 30 0RF (DME) Blood Glucose Test Strip See Rx Instructions .Route Qty: 100 0RF Rx Instructions: tid ac meals atorvastatin 80 mg tablet 80 mg PO QAM Qty: 30 3RF Incruse Ellipta 62.5 mcg/actuation blister with device 1 inh inhalation DAILY Qty: 30 3RF tiotropium bromide [Spiriva with HandiHaler] 18 mcg capsule, w/inhalation device 1 cap inhalation DAILY 30 Days Qty: 30 3RF ondansetron 4 mg tablet,disintegrating 4 mg PO Q6H PRN (Reason: Nausea And Vomiting) Qty: 20 3RF metformin 500 mg tablet extended release 24 hr 100 mg PO BID Qty: 60 4RF losartan 50 mg tablet 50 mg PO DAILY@0800 Qty: 30 4RF Levemir FlexPen 100 unit/mL (3 mL) insulin pen 50 unit SUBCUT BIDWM Qty: 15 3RF Rx Instructions: Starts at 25. increase by 5 every 3 days. hydroxyzine HCl 25 mg tablet 25 mg PO Q6H PRN (Reason: itching) Qty: 20 0RF furosemide 40 mg tablet 40 mg PO DAILY PRN (Reason: Edema) Qty: 30 3RF duloxetine 60 mg capsule,delayed release(DR/EC) 60 mg PO DAILY Qty: 30 4RF cyclobenzaprine 10 mg tablet 10 mg PO TID PRN (Reason: Muscle Spasm) Qty: 90 3RF albuterol sulfate 90 mcg/actuation HFA aerosol inhaler 2 puff inhalation Q6H PRN (Reason: shortness of breath or wheezing) Qty: 8.5 3RF quetiapine 200 mg tablet 200 mg PO BEDTIME Qty: 30 4RF (DME) blood-glucose meter Misc See Rx Instructions .Route Qty: 1 0RF Rx Instructions: dailyAs directed levetiracetam 750 mg tablet 750 mg PO BID Qty: 60 4RF tramadol 50 mg tablet 50 mg PO Q8H PRN (Reason: pain) Qty: 90 0RF nitroglycerin [Nitrostat] 0.4 mg tablet, sublingual 0.4 mg SUBLINGUAL Q5M PRN (Reason: Chest Pain) Qty: 30 4RF Rx Instructions: do not exceed 3 doses per episode (DME) Blood Glucose Test Strip See Rx Instructions .Route Qty: 50 3RF Rx Instructions: As directed accucheck test strips for accu check machine isosorbide mononitrate 60 mg tablet extended release 24 hr 30 mg PO BID Qty: 90 3RF metoprolol succinate 25 mg tablet extended release 24 hr 12.5 mg PO QAM Qty: 90 3RF pantoprazole 40 mg tablet,delayed release (DR/EC) 40 mg PO QAM Qty: 90 3RF Brilinta 90 mg tablet 90 mg PO BID Qty: 180 3RF doxycycline hyclate 100 mg capsule 100 mg PO BID 30 Days Qty: 60 0RF fluconazole 150 mg tablet 150 mg PO Q3D PRN (Reason: for candidiasis) Qty: 30 1RF lidocaine HCl [Lidocaine Viscous] 2 % solution 1 applic topical ONCE Qty: 1 0RF lidocaine HCl [Lidocaine Viscous] 2 % solution 1 applic topical ONCE Qty: 1 0RF lidocaine HCl [Lidocaine Viscous] 2 % solution 1 applic topical ONCE Qty: 1 0RF lidocaine HCl [Lidocaine Viscous] 2 % solution 1 applic topical ONCE Qty: 1 0RF aspirin 81 mg tablet,delayed release (DR/EC) 81 mg PO QAM Qty: 30 4RF (DME) lancets Misc See Rx Instructions .Route Qty: 100 0RF Rx Instructions: 1 tid sulfamethoxazole-trimethoprim [Bactrim DS] 800-160 mg tablet 1 tab PO BID 90 Days Qty: 180 0RF cefdinir 300 mg capsule 300 mg PO BID 14 Days Qty: 28 0RF dulaglutide 0.75 mg/0.5 mL pen injector 0.75 mg SUBCUT Q7D Qty: 1 3RF Discharge Orders: Discharge ED (Routine); Ordered 02/10/24 Ordered By: Akin Puri Referrals: Laurel Eagle MD [Primary Care Provider] - 1 week Patient Instructions: Chronic Wound Care (ED) Activity Restrictions/Additional Instructions: Your assessment in ER did not reveal any acute changes of your chronic right toe wound. Your inflammatory markers have improved and your white count is mildly consistently elevated. Please continue the doxycycline Dr. Gresham placed you on for long-term treatment. Please continue the tramadol for pain. Please continue going to wound care for further evaluation and treatment of this chronic wound. Coding Level of Care Code ED Dust Mixer for Nahed Alcazar
[2024-02-10 21:29] VITALS: RESP 16; O2SAT 98
[2024-02-10] MEDS: morphine 4 mg/mL SDV 1 mL IM ×2 (21:29→22:32)
[2024-02-10] MEDS: ondansetron 2 mg/ML SDV 2 mL 4 MG IM (21:29)
[2024-02-10 21:43] LABS: Basophils # 0.1 10^3/uL (0.0-0.1); Basophils % 0.7 %; Eosinophils % 7.2 %; Hematocrit 39.2 % (36-47); Lymphocytes # 7.1 10^3/uL (0.8-4.8); Lymphocytes % 49.4 %; Mean Corpuscular HGB Conc 31.4 g/dL (30-55); Mean Corpuscular Hemoglobin 23.6 pg (27-33); Mean Corpuscular Volume 75.1 fl (85-98); Mean Platelet Volume 9.5 fL (7.4-10.4); Monocytes # 0.8 10^3/uL (0.2-0.9); Monocytes % 5.4 %; Neutrophils # 5.12 10^3/uL (1.8-7.7); Neutrophils % 35.9 %; Nucleated Red Blood Cells % 0 %; Platelet Count 574 10^3/cmm (157-399); Red Blood Count 5.22 10^6/uL (3.85-5.65); Red Cell Distribution Width 16.3 % (12.1-15.1); White Blood Count 14.28 10^3/uL (3.29-11.43)
[2024-02-10 22:04] LABS: Albumin Level 3.6 g/dL (3.5-5.2); Alkaline Phosphatase 104 U/L (35-105); Anion Gap 20.6 (5-19); Blood Urea Nitrogen 12 mg/dL (6-20); Calcium 9.5 mg/dL (8.5-10.5); Carbon Dioxide 20 mmol/L (22-29); Chloride 103 mmol/L (98-107); Creatinine Clr Calc Pharmacy 102.4273; Globulin 3.6 g/dL (1.3-4.6); Glomerular Filtration Rate 86.6 mL/min (90-130); Glucose 249 mg/dL (65-115); Osmolality Calculated 296 mOsm/kg (285-295); Potassium 4.6 mmol/L (3.5-5.1); Sodium 139 mmol/L (136-145); Total Bilirubin 0.2 mg/dL (0.15-1.2); Total Protein 7.2 g/dL (6.6-8.7)
[2024-02-10 22:10] LABS: Procalcitonin 0.06 ng/mL (0-0.5)
[2024-02-10 22:12] VITALS: BP 135/77; PULSE 91; RESP 16; O2SAT 94
[2024-02-10 22:17] LABS: Alanine Aminotransferase < 5 U/L (0-33); Aspartate Amino Transferase 5 U/L (0-32)
[2024-02-10 22:28] LABS: Erythrocyte Sedimentation Rate 22 mm/hr (0-15)
[2024-02-10 22:46] VITALS: BP 135/77; PULSE 91; RESP 16; O2SAT 94
== END 2024-02-10 22:47 | disposition home or self-care (01) ==
PROVIDERS: Internal Medicine; Emergency Provider Emergency Medicine; PCP Family Medicine
DX: E11.621 Type 2 diabetes mellitus with foot ulcer (principal); Z79.82 Long term (current) use of aspirin; Z79.84 Long term (current) use of oral hypoglycemic drugs; Z79.4 Long term (current) use of insulin; F17.210 Nicotine dependence, cigarettes, uncomplicated; J44.9 Chronic obstructive pulmonary disease, unspecified; Z86.73 Personal history of transient ischemic attack (TIA), and cerebral infarction without residual deficits; I25.10 Atherosclerotic heart disease of native coronary artery without angina pectoris; E78.2 Mixed hyperlipidemia; I25.2 Old myocardial infarction; I11.0 Hypertensive heart disease with heart failure; I50.9 Heart failure, unspecified
CPT/HCPCS: 36415; 80053; 84145; 85025; 85651; 86140; 96372; 99284; J2270; J2405

== ENCOUNTER → 2024-02-13 13:19 | Outpatient (BNVA) | payer MEDICARE, MEDICAID, SELFPAY | PROVIDERS: PCP Family Medicine; Visit Provider Thoracic Surgery (Cardiothoracic Vascular Surgery) | DX: I65.23 Occlusion and stenosis of bilateral carotid arteries (principal); I69.351 Hemiplegia and hemiparesis following cerebral infarction affecting right dominant side; F17.210 Nicotine dependence, cigarettes, uncomplicated; I10 Essential (primary) hypertension | CPT/HCPCS: 99214 ==

== ENCOUNTER → 2024-02-14 09:41 | Outpatient (BNVA) | payer MEDICARE, MEDICAID, SELFPAY | PROVIDERS: PCP Family Medicine; Visit Provider Thoracic Surgery (Cardiothoracic Vascular Surgery) | DX: E11.52 Type 2 diabetes mellitus with diabetic peripheral angiopathy with gangrene (principal); E11.621 Type 2 diabetes mellitus with foot ulcer; L97.511 Non-pressure chronic ulcer of other part of right foot limited to breakdown of skin | CPT/HCPCS: 97597; 97598 ==

== ENCOUNTER 2024-02-23 14:11 | Outpatient (CLI) | payer MEDICARE, MEDICAID, SELFPAY ==
--- NOTE | 2024-02-23 14:30 | MRR_ITS ---
PROCEDURE INFORMATION: Exam: MR Right Lower Extremity Other Than Joint Without and With Contrast; Foot Exam date and time: 02/23/2024 2:37 PM Age: 58 years old Clinical indication: Other: Osteo of right foot; Prior surgery; Surgery date: Post-operative (0-2 days); Surgery type: Yes foot surgery, foot was scraped this morning TECHNIQUE: Imaging protocol: Magnetic resonance imaging of the right lower extremity without and with contrast. Exam focused on the foot. Contrast material: MULTIHANCE; Contrast volume: 20 ml; Contrast route: INTRAVENOUS (IV); COMPARISON: MR foot RT wo/w con [id number] 11/21/2023 10:26 AM FINDINGS: There is diffuse soft tissue swelling and subcutaneous edema with associated enhancement and overlying skin thickening. This is most pronounced about the forefoot, with there is extensive soft tissue ulceration and cutaneous irregularity. No convincing organized collection is identified. There is no soft tissue mass. No acute tendon or ligament injury is identified. There is no MR evidence of acute fracture or dislocation. Alignment is anatomic. Evaluation of the toes is limited by field inhomogeneity. There is increased T2 signal in the 2nd, 3rd, 4th and 5th proximal and middle phalanges, as well as the 5th distal phalanx. Similar, less conspicuous findings are noted in the hallux phalanges. This is predominantly evident on the fluid sensitive sequences. There is no convincing associated T1 hypointensity. There is questionable enhancement on the postcontrast images, although this may also be secondary to field inhomogeneity. Mild degenerative changes are most conspicuous about the hallux metatarsophalangeal and interphalangeal joints. There are no convincing acute erosive or destructive changes. Serpentine areas of heterogeneous marrow signal are noted in the talus, calcaneus, cuboid and navicular, consistent with avascular necrosis. There is no lytic or blastic lesion. There is no significant effusion. MR/MR foot RT wo/w con [id number] IMPRESSION: 1. Soft tissue infection, as described above. 2. No convincing MR evidence of acute osteomyelitis at this time, although evaluation of the toes is suboptimal due to field inhomogeneity and developing osteomyelitis of the phalanges cannot be definitively excluded. Continued clinical and imaging surveillance is recommended. 3. Additional findings, as above.
[2024-02-23] MEDS: gadobenate dimeglumine 20 mL vial IV (15:13)
== END 2024-02-23 14:12 | disposition home or self-care (01) ==
LOC: RAD 14:11
PROVIDERS: PCP Family Medicine; Visit Provider Student in an Organized Health Care Education/Training Program
DX: M86.171 Other acute osteomyelitis, right ankle and foot (principal)
CPT/HCPCS: 73720; 97597; A6248; A9577

== ENCOUNTER 2024-02-28 12:46 | Outpatient (CLI) | payer MEDICARE, MEDICAID, SELFPAY ==
--- NOTE | 2024-02-28 12:47 | CT_ITS ---
WS: [id number] CTA ABDOMINAL AORTA WITH RUNOFF TECHNIQUE: Contrast enhanced CTA of the abdominal aorta with bilateral lower extremity runoff. Multip lanar reformatted images were obtained. MIP reformats were also reviewed. CLINICAL INFORMATION: Osteo ,diabetes COMPARISON: None. DLP: 1867.[address] scans at [facility] use at least one of these dose optimization techniques: automated e xposure control; mA and/or kV adjustment per patient size (includes targeted exams where dose is matc hed to clinical indication); or iterative reconstruction. FINDINGS: Bilateral TKAs degraded images in the patella fossa. Postoperative changes lower lumbar spi ne Normal caliber abdominal aorta. Celiac and SMA are patent. Mild stenosis of the celiac artery origin. Proximal renal arteries are patent. Mild aortic atheromatous disease. No aneurysm. Lung bases are well aerated. Calcified granuloma LEFT lower lobe. Splenic artery granulomas. Diffuse fatty filtration of the liver. Normal portal vein and splenic vein. Adrenal glands are normal. Normal renal parenchymal enhancement. No hydronephrosis in either kidney. Postoperative changes lumbar spin e. RIGHT: RIGHT common iliac artery is patent. Internal iliac artery is patent. External iliac artery is patent with moderate atheromatous disease. RIGHT common femoral artery is patent. Artery is patent. Moderate approximate 50% stenosis proximal SFA. Superficial femoral artery is patent to the popliteal fossa. Mild stenosis at the adductor hiatus. Moderate to severe segmental stenosis involving the pop liteal artery popliteal artery remains patent. Images degraded in the popliteal fossa. Popliteal felix ry remains patent to the trifurcation with three-vessel runoff to the ankle. Somewhat poor peroneal a rtery runoff. LEFT: LEFT common iliac artery is patent. Internal/external iliac arteries are patent. LEFT common fe moral artery is patent. Deep femoral artery is patent. Mild stenosis at the SFA origin. Superficial f emoral artery remains patent to the adductor hiatus. Moderate stenosis at the adductor hiatus. Severe stenosis of the popliteal artery above the knee series 5 image 659. Popliteal artery remains patent to the trifurcation. Three-vessel runoff to the ankle. Somewhat diminutive anterior tibial and perone al arteries. CT/CT angio abd aorta runof [id number] IMPRESSION: 1. RIGHT: Moderate approximate 50% stenosis proximal SFA. Superficial femoral artery is patent to the popliteal fossa. Mild stenosis at the adductor hiatus. Moderate to severe segmental stenosis involving the popliteal artery. Severe po pliteal artery stenosis above the knee series 5 image 669. Popliteal artery rem ains patent. Images degraded in the popliteal fossa. Popliteal artery remains p atent to the trifurcation with three-vessel runoff to the ankle. Somewhat poor peroneal artery runoff. 2. LEFT: Mild stenosis at the SFA origin. Superficial femoral artery remains p atent to the adductor hiatus. Moderate stenosis at the adductor hiatus. Severe stenosis of the popliteal artery above the knee series 5 image 659. Popliteal a rtery remains patent to the trifurcation. Three-vessel runoff to the ankle. Elias ewhat diminutive anterior tibial and peroneal arteries.
[2024-02-28] MEDS: iohexol 350 mg/mL 500 mL Btl (per mL) IV (13:28)
== END 2024-02-28 12:47 | disposition home or self-care (01) ==
LOC: RAD 12:46
PROVIDERS: PCP Family Medicine; Visit Provider Thoracic Surgery (Cardiothoracic Vascular Surgery)
DX: I70.201 Unspecified atherosclerosis of native arteries of extremities, right leg (principal); E08.621 Diabetes mellitus due to underlying condition with foot ulcer; M86.9 Osteomyelitis, unspecified; L97.501 Non-pressure chronic ulcer of other part of unspecified foot limited to breakdown of skin; J84.10 Pulmonary fibrosis, unspecified; D73.89 Other diseases of spleen; K76.0 Fatty (change of) liver, not elsewhere classified
CPT/HCPCS: 75635; 97597; 97598; Q9967

== ENCOUNTER 2024-03-04 17:02 | Emergency (ER) | payer MEDICARE, MEDICAID, SELFPAY ==
[2024-03-04 17:07] VITALS: PULSE 103; RESP 20; TEMP 36.6; O2SAT 97
--- NOTE | 2024-03-04 17:45 | XRR_ITS ---
PROCEDURE INFORMATION: Exam: XR Right Foot Exam date and time: 03/04/2024 6:05 PM Age: 58 years old Clinical indication: Right; Prior surgery; Surgery date: 1-6 months; Surgery type: RT foot debriedment; Patient HX: RT foot pain; Ulcer to RT great toe; HX osteomyelitis with recent surgical debriedment TECHNIQUE: Imaging protocol: Radiologic exam of the right foot. Views: 3 or more views. COMPARISON: CT angio abd aorta runof [id number] 02/28/2024 1:11 PM FINDINGS: Bones/joints: The bones are osteopenic. No cortical irregularity or intramedullary lucency to suggest osteomyelitis. No fracture. Soft tissues: Normal. XR/XR foot RT min 3V* [id number] IMPRESSION: 1. No cortical irregularity or intramedullary lucency to suggest osteomyelitis. 2. No fracture.
--- NOTE | 2024-03-04 17:45 | XRR_ITS ---
PROCEDURE INFORMATION: Exam: XR Right Hand Exam date and time: 03/04/2024 6:05 PM Age: 58 years old Clinical indication: Right; Patient HX: RT hand pain/swelling; Skin erythemia; No known injury TECHNIQUE: Imaging protocol: Radiologic exam of the right hand. Views: 3 or more views. COMPARISON: No relevant prior studies available. FINDINGS: Bones/joints: The bones are osteopenic. [id number] degenerative changes in the interphalangeal joint of the 1st digit and D IP joint of 5th digit. Soft tissues: Normal. XR/XR hand RT min 3V* [id number] IMPRESSION: No acute findings.
--- NOTE | 2024-03-04 17:51 | ECG_ITS ---
[facility] Test Date: 2024-03-04 Pat Name: Mayra Ascencio Department: Room: Gender: Female [place] Tier: : 1965 Requested By: Olman King Order Number: [id number] Ashlee MD: Brad Lyles M.D. Measurements Intervals Rogers Rate: 90 P: 0 MS: 182 QRS: -1 QRSD: 94 T: 28 QT: 358 QTc: 439 Interpretive Statements SINUS RHYTHM Compared to ECG 11/20/2023 03:57:50 Sinus tachycardia no longer present T-wave abnormality no longer present Electronically Signed On 03-05-2024 12:53:41 CDT by Brad Lyles M.D. [email or web address]
[2024-03-04 18:15] VITALS: RESP 16; O2SAT 95
[2024-03-04 18:15] LABS: Basophils # 0.1 10^3/uL (0.0-0.1); Basophils % 0.6 %; Eosinophils # 0.6 10^3/uL (0.0-0.8); Eosinophils % 6.4 %; Hematocrit 39.3 % (36-47); Lymphocytes # 4.4 10^3/uL (0.8-4.8); Lymphocytes % 45.5 %; Mean Corpuscular HGB Conc 31.3 g/dL (30-55); Mean Corpuscular Volume 73.5 fl (85-98); Mean Platelet Volume 8.9 fL (7.4-10.4); Monocytes # 0.8 10^3/uL (0.2-0.9); Monocytes % 8.1 %; Neutrophils # 3.69 10^3/uL (1.8-7.7); Neutrophils % 38.5 %; Nucleated Red Blood Cells % 0 %; Platelet Count 542 10^3/cmm (157-399); Red Blood Count 5.35 10^6/uL (3.85-5.65); Red Cell Distribution Width 17.2 % (12.1-15.1); White Blood Count 9.59 10^3/uL (3.29-11.43)
[2024-03-04] MEDS: ondansetron 2 mg/ML SDV 2 mL 4 MG IVP (18:15)
[2024-03-04] MEDS: morphine 4 mg/mL SDV 1 mL IVP ×2 (18:15→19:49)
[2024-03-04 18:33] LABS: Lactic Sepsis W/Reflex 1.9 mmol/L (0.5-2.2)
[2024-03-04 18:35] LABS: Erythrocyte Sedimentation Rate 34 mm/hr (0-15)
[2024-03-04 18:42] LABS: Alanine Aminotransferase 30 U/L (0-33); Albumin Level 3.8 g/dL (3.5-5.2); Alkaline Phosphatase 122 U/L (35-105); Aspartate Amino Transferase 17 U/L (0-32); Blood Urea Nitrogen 6 mg/dL (6-20); C Reactive Protein 11.4 mg/L (0.0-4.9); Carbon Dioxide 24 mmol/L (22-29); Chloride 106 mmol/L (98-107); Creatinine Clr Calc Pharmacy 110.5027; Globulin 4.4 g/dL (1.3-4.6); Glomerular Filtration Rate 103.4 mL/min (90-130); Glucose 121 mg/dL (65-115); NT Pro B Type Natriuretic Pept 279 pg/mL (0-125); Osmolality Calculated 295 mOsm/kg (285-295); Sodium 143 mmol/L (136-145); Total Bilirubin 0.2 mg/dL (0.15-1.2); Total Protein 8.2 g/dL (6.6-8.7)
[2024-03-04] MEDS: vancomycin 1,000 MG in sodium chloride 0.9% 250 ML 250 MG IV (18:44)
[2024-03-04 18:57] LABS: Add Urine Microscopic? YES; Bilirubin Urine 1+ (Negative); Blood Urine Neg (Negative); Glucose Urine UA Norm (Normal); Ketones Urine 1+ (Negative); Leukocyte Esterase Urine 1+ (Negative); Nitrate Urine Positive (Negative); Protein Urine 1+ (Negative); Urine Appearance Cloudy (CLEAR); Urine Color Yellow (Yellow); Urobilinogen Urine Neg (Negative); pH Urine 5 (5-7)
[2024-03-04 18:58] LABS: Add Urine Culture? Yes; Bacteria Urine 1+ /hpf; Mucus Urine 1+ /hpf; RBC Urine 0-4 /hpf (0-2); WBC Urine 15-25 /hpf (0-5)
--- NOTE | 2024-03-04 19:13 | ED_ITS ---
HPI - Extremity Problem 2 General: Chief complaint: Extremity Problem,Nontraumatic Stated complaint: Right hand swelling Time Seen by Provider: 03/04/24 17:27 History of Present Illness: 58-year-old female complaining of right great toe pain. She has had a chronic infection in this toe. She is on 3 different antibiotics, including cefdinir, Bactrim, and doxycycline. She complains of worsening leg swelling over the last couple of days. She has a history of coronary disease, so she is worried about heart failure. She also complains of right hand swelling and redness and pain with itching that is popped up over the last couple of days as well. This is despite being on antibiotics as well. She is not febrile. She is not vomiting. 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 COPD (chronic obstructive pulmonary disease) Hypersensitivity pneumonitis Rheumatoid arthritis Infection of total left knee replacement Right wrist deformity History of stroke Acute exacerbation of chronic obstructive pulmonary disease (COPD) Acute encephalopathy Acute respiratory failure with hypoxia Acute alteration in mental status Sepsis Diabetes Sacral pressure ulcer Cellulitis of gluteal region Seizure disorder Hypoxemia Seizure UTI (urinary tract infection) Chronic, continuous use of opioids Seizures Acute and chronic respiratory failure with hypoxia Pneumonia Pneumonia Acute hypoxemic respiratory failure Stenosis of left internal carotid artery with cerebral infarction Diabetic foot ulcer Right arm weakness Hoarseness of voice Sepsis Numbness and tingling in both hands Urinary tract infection Chest pain Syncope Needs flu shot Carpal tunnel syndrome, right Urinary incontinence Chronic knee pain Abnormal stress test CAD (coronary artery disease) Acute exacerbation of CHF (congestive heart failure) Unstable angina COPD exacerbation Exposure to COVID-19 virus Compression fracture of L2 lumbar vertebra Right hip pain Dyspnea (HFpEF) heart failure with preserved eje ction fraction Candidiasis of vagina History of CVA (cerebrovascular accident) Elevated troponin Pericardial effusion Pressure ulcer Prosthetic joint infection Anemia Septic arthritis of knee, left Osteoarthritis of left knee History of hypoglycemic coma Obesity (BMI 35.0-39.9 without comorbidity) Peripheral sensory neuropathy due to type 2 diabetes mellitus Coronary artery disease due to type 2 diabetes mellitus Diabetes type 2, uncontrolled Neuropathy Insomnia Fibromyalgia, primary Hyperlipidemia, mixed CVA (cerebral vascular accident) Dyslipidemia Leukocytosis NSTEMI (non-ST elevated myocardial infarction) Thought to be secondary to plaque rupture. Angiogram July 04 no flow- limiting lesions, or restenosis of previous stent from April 2020 Chronic obstructive pulmonary disease, unspecified Vitamin D deficiency Type 2 diabetes mellitus with diabetic autonomic (poly)neuropathy Essential hypertension Encounter for long-term opiate analgesic use Opioid contract exists Current every day smoker Chronic pain of left knee Low back pain radiating to both legs Intervertebral disc disorder of lumbar region with myelopathy Lumbosacral spondylosis without myelopathy Osteoarthritis of spine at multiple levels Chronic left-sided low back pain Surgical History Status post left knee replacement History of coronary angiogram Angiogram April 2020 with 90% circumflex lesion, drug-eluting stent placed by Dr. Jerome Status post lumbar laminectomy S/P lumbar fusion DR. Shreya ZAYAS IN [place], [place] L4-L5, L5-S1 S/p bilateral carpal tunnel release History of arthroscopic surgery of elbow BILATERAL S/P hysterectomy S/P knee surgery RIGHT Family History Other CAD (coronary artery disease) Cancer Diabetes Social History Smoking and tobacco/nicotine status: current every day tobacco/nicotine user cigarettes Packs smoked per day: 0.5 Years cigarettes smoked: 10 [ Other cigarette details: PER PATIENT REPORT] Alcohol intake: former Substance/Drug Use: never Caregiver/support person: Yes Lives independently: No Housing: Longterm Marital status: Unknown Marital status details: She and son state she is not service: No Current occupational status: unemployed Pets and animals: Yes Do you think of yourself as: Straight/Heterosexual Current gender identity: Female Physical Exam 2 Extremity: NARRATIVE EXTREMITY EXAM: Great toe redness, swelling, skin loss, ulceration, no odor. Right upper extremity reveals swelling to the index finger, dorsum of the hand, and dorsum of the forearm. There is redness. Raised papular rash present on the forearm. Neuro: CARTER COMA SCALE: document GCS findings [place] coma scale eye opening: Spontaneous [place] coma scale verbal response: Orientated [place] coma scale motor response: Obey commands [place] coma scale total score: 15 Course 2 Vital Signs: Vital signs: Vital Signs Temperature 98 F 03/04/24 20:46 Pulse Rate 98 03/04/24 20:46 Respiratory Rate 16 03/04/24 20:46 Blood Pressure 146/84 03/04/24 20:46 Pulse Oximetry 95 03/04/24 20:46 Oxygen Delivery Me thod Room Air 03/04/24 17:07 MDM - Extremity (Nontraumatic) Medical Decision Making I have looked at the patient's cultures, from wound care. It appears that the Proteus is resistant to doxycycline. This will be discontinued, as it is likely causing the itching, swelling, and redness to her right upper extremity. She is given a dose of dexamethasone as well as a dose of Benadryl for this, with some improvement here in the ER. We will continue cefdinir and Bactrim. As far as her previous cultures for urine, she has a mild UTI, her E. coli looks sensitive to cefdinir. She was placed on a small dose of steroid for the upper extremity. She is encouraged to take antihistamines for a couple of days. Return for any worsening symptoms, especially fever. Outpatient follow-up with wound care and ID. Lab Data 03/04/24 18:08 03/04/24 18:08 Radiology Impressions Foot X-Ray 03/04/24 17:45 IMPRESSION: 1. No cortical irregularity or intramedullary lucency to suggest osteomyelitis. 2. No fracture. Hand X-Ray 03/04/24 17:45 IMPRESSION: No acute findings. Laboratory Results WBC 9.59 10^3/uL (3.29-11.43) 03/04/24 18:08 RBC 5.35 10^6/uL (3.85-5.65) 03/04/24 18:08 Hgb 12.30 g/dL (11.27-16.99) 03/04/24 18:08 Hct 39.3 % (36-47) 03/04/24 18:08 MCV 73.5 fl (85-98) L 03/04/24 18:08 MCH 23.0 pg (27-33) L 03/04/24 18:08 MCHC 31.3 g/dL (30-55) 03/04/24 18:08 RDW 17.2 % (12.1-15.1) H 03/04/24 18:08 Plt Count 542 10^3/cmm (157-399) H 03/04/24 18:08 MPV 8.9 fL (7.4-10.4) 03/04/24 18:08 Neut % (Auto) 38.5 % 03/04/24 18:08 Lymph % (Auto) 45.5 % 03/04/24 18:08 Lane % (Auto) 8.1 % 03/04/24 18:08 Eos % (Auto) 6.4 % 03/04/24 18:08 Baso % (Auto) 0.6 % 03/04/24 18:08 Neut # (Auto) 3.69 10^3/uL (1.8-7.7) 03/04/24 18:08 Lymph # (Auto) 4.4 10^3/uL (0.8-4.8) 03/04/24 18:08 Lane # (Auto) 0.8 10^3/uL (0.2-0.9) 03/04/24 18:08 Eos # (Auto) 0.6 10^3/uL (0.0-0.8) 03/04/24 18:08 Baso # (Auto) 0.1 10^3/uL (0.0-0.1) 03/04/24 18:08 Nucleated RBC % (auto) 0 % 03/04/24 18:08 Nucleated RBCs # 0.0 /100WBC 03/04/24 18:08 ESR 34 mm/hr (0-15) H 03/04/24 18:08 Sodium 143 mmol/L (136-145) 03/04/24 18:08 Potassium 4.0 mmol/L (3.5-5.1) 03/04/24 18:08 Chloride 106 mmol/L (98-107) 03/04/24 18:08 Carbon Dioxide 24 mmol/L (22-29) 03/04/24 18:08 Anion Gap 17.0 (5-19) 03/04/24 18:08 BUN 6 mg/dL (6-20) 03/04/24 18:08 Creatinine 0.6 mg/dL (0.5-0.9) 03/04/24 18:08 GFR Calculation 103.4 mL/min (90-130) 03/04/24 18:08 Glucose 121 mg/dL (65-115) H 03/04/24 18:08 Calculated Osmolality 295 mOsm/kg (285-295) 03/04/24 18:08 Lactic Acid 1.9 mmol/L (0.5-2.2) 03/04/24 18:08 Calcium 9.0 mg/dL (8.5-10.5) 03/04/24 18:08 Total Bilirubin 0.2 mg/dL (0.15-1.2) 03/04/24 18:08 AST 17 U/L (0-32) 03/04/24 18:08 ALT 30 U/L (0-33) 03/04/24 18:08 Alkaline Phosphatase 122 U/L (35-105) H 03/04/24 18:08 C-Reactive Protein 11.4 mg/L (0.0-4.9) H 03/04/24 18:08 NT-Pro-B Natriuret Pep 279 pg/mL (0-125) H 03/04/24 18:08 Total Protein 8.2 g/dL (6.6-8.7) 03/04/24 18:08 Albumin 3.8 g/dL (3.5-5.2) 03/04/24 18:08 Globulin 4.4 g/dL (1.3-4.6) 03/04/24 18:08 Urine Color Yellow (Yellow) 03/04/24 18:32 Urine Appearance Cloudy (CLEAR) A 03/04/24 18:32 Urine pH 5 (5-7) 03/04/24 18:32 Ur Specific [place] 1.020 (1.005-1.030) 03/04/24 18:32 Urine Protein 1+ (Negative) H 03/04/24 18:32 Urine Glucose (UA) Norm (Normal) 03/04/24 18:32 Urine Ketones 1+ (Negative) H 03/04/24 18:32 Urine Blood Neg (Negative) 03/04/24 18:32 Urine Nitrate Positive (Negative) H 03/04/24 18:32 Urine Bilirubin 1+ (Negative) H 03/04/24 18:32 Urine Urobilinogen Neg mg/dL (Negative) 03/04/24 18:32 Ur Leukocyte Esterase 1+ (Negative) H 03/04/24 18:32 Urine RBC 0-4 /hpf (0-2) H 03/04/24 18:32 Urine WBC 15-25 /hpf (0-5) H 03/04/24 18:32 Ur Squamous Epith Cells 5-10 /hpf (0-5) H 03/04/24 18:32 Amorphous Sediment Not Reportable 03/04/24 18:32 Urine Bacteria 1+ /hpf (NONE) H 03/04/24 18:32 Urine Mucus 1+ /hpf 03/04/24 18:32 Urine Yeast 1+ /hpf H 03/04/24 18:32 All radiology interpretation(s) finalized by discharge Discharge Plan Discharge Patient Disposition: Home Clinical Impression: UTI (urinary tract infection), Cellulitis, Ulcer of toe, Allergic reaction due to antibacterial drug Condition: Stable Prescriptions: New Medrol (Pankaj) 4 mg tablets,dose pack See Rx Instructions .ROUTE .COMPLEX Qty: 21 0RF Rx Instructions: orally per package directions hydrocodone-acetaminophen 5-325 mg tablet 1 tab PO Q8H PRN (Reason: pain) Qty: 7 0RF Discontinued doxycycline hyclate 100 mg capsule 100 mg PO BID 30 Days Qty: 60 0RF No Action ezetimibe 10 mg tablet 10 mg PO DAILY Qty: 30 4RF (DME) pen needle, diabetic [Comfort EZ Pen Portia] 32 gauge x 5/32 needle See Rx Instructions .Route Qty: 100 2RF Rx Instructions: use 3times a day to inject insulin. (DME) pen needle, diabetic [Comfort EZ Pen Portia] 31 gauge x 5/16 needle See Rx Instructions .Route Qty: 100 6RF Rx Instructions: use daily with levemir lidocaine HCl [Lidocaine Viscous] 2 % solution 1 applic topical ONCE Qty: 1 0RF Jardiance 25 mg tablet 25 mg PO DAILY Qty: 30 4RF Rx Instructions: 340 b nystatin 100,000 unit/gram cream 1 applic topical BID Qty: 30 0RF (DME) Blood Glucose Test Strip See Rx Instructions .Route Qty: 100 0RF Rx Instructions: tid ac meals atorvastatin 80 mg tablet 80 mg PO QAM Qty: 30 3RF Incruse Ellipta 62.5 mcg/actuation blister with device 1 inh inhalation DAILY Qty: 30 3RF tiotropium bromide [Spiriva with HandiHaler] 18 mcg capsule, w/inhalation device 1 cap inhalation DAILY 30 Days Qty: 30 3RF ondansetron 4 mg tablet,disintegrating 4 mg PO Q6H PRN (Reason: Nausea And Vomiting) Qty: 20 3RF metformin 500 mg tablet extended release 24 hr 100 mg PO BID Qty: 60 4RF losartan 50 mg tablet 50 mg PO DAILY@0800 Qty: 30 4RF Levemir FlexPen 100 unit/mL (3 mL) insulin pen 50 unit SUBCUT BIDWM Qty: 15 3RF Rx Instructions: Starts at 25. increase by 5 every 3 days. hydroxyzine HCl 25 mg tablet 25 mg PO Q6H PRN (Reason: itching) Qty: 20 0RF furosemide 40 mg tablet 40 mg PO DAILY PRN (Reason: Edema) Qty: 30 3RF duloxetine 60 mg capsule,delayed release(DR/EC) 60 mg PO DAILY Qty: 30 4RF cyclobenzaprine 10 mg tablet 10 mg PO TID PRN (Reason: Muscle Spasm) Qty: 90 3RF albuterol sulfate 90 mcg/actuation HFA aerosol inhaler 2 puff inhalation Q6H PRN (Reason: shortness of breath or wheezing) Qty: 8.5 3RF quetiapine 200 mg tablet 200 mg PO BEDTIME Qty: 30 4RF (DME) blood-glucose meter Misc See Rx Instructions .Route Qty: 1 0RF Rx Instructions: dailyAs directed levetiracetam 750 mg tablet 750 mg PO BID Qty: 60 4RF tramadol 50 mg tablet 50 mg PO Q8H PRN (Reason: pain) Qty: 90 0RF nitroglycerin [Nitrostat] 0.4 mg tablet, sublingual 0.4 mg SUBLINGUAL Q5M PRN (Reason: Chest Pain) Qty: 30 4RF Rx Instructions: do not exceed 3 doses per episode (DME) Blood Glucose Test Strip See Rx Instructions .Route Qty: 50 3RF Rx Instructions: As directed accucheck test strips for accu check machine isosorbide mononitrate 60 mg tablet extended release 24 hr 30 mg PO BID Qty: 90 3RF metoprolol succinate 25 mg tablet extended release 24 hr 12.5 mg PO QAM Qty: 90 3RF pantoprazole 40 mg tablet,delayed release (DR/EC) 40 mg PO QAM Qty: 90 3RF Brilinta 90 mg tablet 90 mg PO BID Qty: 180 3RF fluconazole 150 mg tablet 150 mg PO Q3D PRN (Reason: for candidiasis) Qty: 30 1RF lidocaine HCl [Lidocaine Viscous] 2 % solution 1 applic topical ONCE Qty: 1 0RF lidocaine HCl [Lidocaine Viscous] 2 % solution 1 applic topical ONCE Qty: 1 0RF lidocaine HCl [Lidocaine Viscous] 2 % solution 1 applic topical ONCE Qty: 1 0RF lidocaine HCl [Lidocaine Viscous] 2 % solution 1 applic topical ONCE Qty: 1 0RF aspirin 81 mg tablet,delayed release (DR/EC) 81 mg PO QAM Qty: 30 4RF (DME) lancets Misc See Rx Instructions .Route Qty: 100 0RF Rx Instructions: 1 tid sulfamethoxazole-trimethoprim [Bactrim DS] 800-160 mg tablet 1 tab PO BID 90 Days Qty: 180 0RF cefdinir 300 mg capsule 300 mg PO BID 14 Days Qty: 28 0RF dulaglutide 0.75 mg/0.5 mL pen injector 0.75 mg SUBCUT Q7D Qty: 1 3RF cilostazol 50 mg tablet 50 mg PO BID Qty: 180 3RF Discharge Orders: Discharge ED (Routine); Ordered 03/04/24 Ordered By: Olman Shaw Referrals: WOUND [facility]ARE [facility], [Staff Physician] - 1-3 days Laurel Eagle MD [Primary Care Provider] - 1-3 days Patient Instructions: Urinary Tract Infection in Women (ED), Cellulitis (ED), Opioid Safety, Pain Management Activity Restrictions/Additional Instructions: Stop the doxycycline, as it is likely causing the redness to your right upper extremity. Continue your cefdinir and trimethoprim/sulfamethoxazole. Steroids as directed. You are encouraged to take antihistamine such as Benadryl for the next 24 hours for the right upper extremity. Pain medication as needed. Call the wound care clinic tomorrow, for follow-up appointment. Return for fever despite antibiotics, worsening right upper extremity redness and swelling despite the above, vomiting, any other concerning symptoms. Coding Level of Care Code ED Home Improvement Advisor for Nahed Alcazar
[2024-03-04 19:49] VITALS: RESP 18; O2SAT 94
[2024-03-04] MEDS: diphenhydrAMINE 50 mg/mL SDV 1mL 25 MG IVP (19:49)
[2024-03-04] MEDS: dexamethasone 4 mg/mL INJ IVP (19:49)
[2024-03-04 20:46] VITALS: BP 146/84; PULSE 98; RESP 16; TEMP 36.6; O2SAT 95
== END 2024-03-04 21:29 | disposition home or self-care (01) ==
PROVIDERS: Emergency Provider Emergency Medicine; PCP Family Medicine
DX: N39.0 Urinary tract infection, site not specified (principal); L03.031 Cellulitis of right toe; L27.0 Generalized skin eruption due to drugs and medicaments taken internally; T36.8X5A Adverse effect of other systemic antibiotics, initial encounter
CPT/HCPCS: 36415; 73130; 73630; 80053; 81001; 83605; 83880; 85025; 85651; 86140; 87040; 87077; 87086; 87186; 93005; 96365; 96366; 96375; 96376; 99285; J1100; J1200; J2270; J2405; J3370; J7050

== ENCOUNTER 2024-03-07 18:23 | Inpatient (IN) | payer MEDICARE, MEDICAID, SELFPAY ==
[2024-03-07] VITALS (7 sets, daily range): BP systolic 168–189; BP diastolic 79–116; PULSE 94–108; RESP 18; TEMP 36.7; O2SAT 95–97; BMI 29.9
--- NOTE | 2024-03-07 19:53 | ED_ITS ---
HPI - Extremity Problem 2 General: Chief complaint: Extremity Injury, Lower Stated complaint: Right Leg pain Time Seen by Provider: 03/07/24 19:53 History of Present Illness: Patient presents to the ER with complaints of worsening right leg pain and cellulitis. Patient was seen here about 3 days ago and was noted to be on 3 different antibiotics. They stopped the doxycycline because they thought she may be having some photosensitivity on her right arm. The right hand and forearm is still red irritated looking the right big toe and foot is still odiferous and erythematous and now the erythema is going up into her mid calf. He is still currently on 2 antibiotics. 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 COPD (chronic obstructive pulmonary disease) Hypersensitivity pneumonitis Rheumatoid arthritis Infection of total left knee replacement Right wrist deformity History of stroke Acute exacerbation of chronic obstructive pulmonary disease (COPD) Acute encephalopathy Acute respiratory failure with hypoxia Acute alteration in mental status Sepsis Diabetes Sacral pressure ulcer Cellulitis of gluteal region Seizure disorder Hypoxemia Seizure UTI (urinary tract infection) Chronic, continuous use of opioids Seizures Acute and chronic respiratory failure with hypoxia Pneumonia Pneumonia Acute hypoxemic respiratory failure Stenosis of left internal carotid artery with cerebral infarction Diabetic foot ulcer Right arm weakness Hoarseness of voice Sepsis Numbness and tingling in both hands Urinary tract infection Chest pain Syncope Needs flu shot Carpal tunnel syndrome, right Urinary incontinence Chronic knee pain Abnormal stress test CAD (coronary artery disease) Acute exacerbation of CHF (congestive heart failure) Unstable angina COPD exacerbation Exposure to COVID-19 virus Compression fracture of L2 lumbar vertebra Right hip pain Dyspnea (HFpEF) heart failure with preserved eje ction fraction Candidiasis of vagina History of CVA (cerebrovascular accident) Elevated troponin Pericardial effusion Pressure ulcer Prosthetic joint infection Anemia Septic arthritis of knee, left Osteoarthritis of left knee History of hypoglycemic coma Obesity (BMI 35.0-39.9 without comorbidity) Peripheral sensory neuropathy due to type 2 diabetes mellitus Coronary artery disease due to type 2 diabetes mellitus Diabetes type 2, uncontrolled Neuropathy Insomnia Fibromyalgia, primary Hyperlipidemia, mixed CVA (cerebral vascular accident) Dyslipidemia Leukocytosis NSTEMI (non-ST elevated myocardial infarction) Thought to be secondary to plaque rupture. Angiogram July 04 no flow- limiting lesions, or restenosis of previous stent from April 2020 Chronic obstructive pulmonary disease, unspecified Vitamin D deficiency Type 2 diabetes mellitus with diabetic autonomic (poly)neuropathy Essential hypertension Encounter for long-term opiate analgesic use Opioid contract exists Current every day smoker Chronic pain of left knee Low back pain radiating to both legs Intervertebral disc disorder of lumbar region with myelopathy Lumbosacral spondylosis without myelopathy Osteoarthritis of spine at multiple levels Chronic left-sided low back pain Surgical History Status post left knee replacement History of coronary angiogram Angiogram April 2020 with 90% circumflex lesion, drug-eluting stent placed by Dr. Jerome Status post lumbar laminectomy S/P lumbar fusion DR. Shreya ZAYAS IN [place], [place] L4-L5, L5-S1 S/p bilateral carpal tunnel release History of arthroscopic surgery of elbow BILATERAL S/P hysterectomy S/P knee surgery RIGHT Family History Other CAD (coronary artery disease) Cancer Diabetes Social History Smoking and tobacco/nicotine status: current every day tobacco/nicotine user cigarettes Packs smoked per day: 0.5 Years cigarettes smoked: 10 [ Other cigarette details: PER PATIENT REPORT] Alcohol intake: former Substance/Drug Use: never Caregiver/support person: Yes Lives independently: No Housing: [facility] Marital status: Unknown Marital status details: She and son state she is not service: No Current occupational status: unemployed Pets and animals: Yes Do you think of yourself as: Straight/Heterosexual Current gender identity: Female Physical Exam 2 Const: COMMON NORMALS: no acute distress, average body habitus, patient oriented x3, no limitations, healthy appearing, alert and well nourished HENMT: COMMON NORMALS: normocephalic, atraumatic, hearing grossly normal bilaterally, external ears normal, Normal external nose present, moist oral mucous membranes and oropharynx normal HEAD & SCALP: normocephalic and atraumatic NOSE: Normal external nose present EXTERNAL EAR: Yes external ears normal Neck/C-Spine: COMMON NORMALS: no JVD Chest: COMMONS NORMALS: normal inspection of the chest and normal palpation of entire chest wall Resp: COMMON NORMALS: normal respiratory effort, No retractions, No use of accessory muscles and clear to auscultation bilaterally AUSCULTATION: clear to auscultation bilaterally Cardio: COMMON NORMALS: no JVD, regular rate, regular rhythm, S1 normal heart sound present, S2 normal heart sound present, No gallops present (Cardio), No clicks present (Cardio), No murmurs present (Cardio) and No rub (Cardio) R ATE: regular rate RHYTHM: regular rhythm HEART SOUNDS: S1 normal heart sound present and S2 normal heart sound present GI: COMMON NORMALS: Normal to inspection, nondistended, normoactive bowel sounds present, Soft to palpation, non-tender, No hepatosplenomegaly present and no masses PALPATION: Yes Soft to palpation and Yes No hepatosplenomegaly present Extremity: NARRATIVE EXTREMITY EXAM: Right great toe red swollen odiferous with these swelling and erythema going up to the mid calf, right hand red and irritated upon the thenar side up into the mid forearm. Neuro: COMMON NORMALS: patient oriented x3 SENSORIUM/ORIENTATION: Yes alert Course 2 Vital Signs: Vital signs: Vital Signs Temperature 98.0 F 03/07/24 18:35 Pulse Rate 94 03/07/24 22:30 Respiratory Rate 18 03/07/24 18:35 Blood Pressure 176/97 03/07/24 21:00 Pulse Oximetry 96 03/07/24 22:30 Oxygen Delivery Me thod Room Air 03/07/24 22:30 MDM - Extremity (Nontraumatic) Medical Decision Making Patient was just here approximately 3 days ago for similar instance she was taken off 1 medication. Lab work was obtained then and compared to the lab work that we obtained today. White count is worsening as well as CRP. It is thought she more than likely has an outpatient failure of antibiotics for cellulitis. CT scan was unremarkable for abscess or osteo-. Ultrasound was negative for DVT, Dr. Delgadillo has been consulted who agreed to place the patient on [facility] for further evaluation and treatment and IV antibiotics. Differential Diagnosis Likely cellulitis; Unlikely herpes zoster, gout, superficial thrombophlebitis, deep venous thrombosis of upper extremity, lower extremity edema or deep vein thrombosis of lower extremity Medical Records I reviewed the patient's medical records. Lab Data I reviewed the patient's lab results. 03/07/24 20:34 03/07/24 21:31 Radiology Impressions Venous Duplex 03/07/24 20:02 IMPRESSION: No evidence of deep vein thrombosis in the right lower extremity. Foot CT 03/07/24 22:17 IMPRESSION: 1. Extensive subcutaneous edema. 2. No definite soft tissue abscess. 3. No definite evidence of osteomyelitis. If there is specific concern for osteomyelitis, consider further evaluation with MRI. Laboratory Results WBC 18.07 10^3/uL (3.29-11.43) H 03/07/24 20:34 RBC 5.12 10^6/uL (3.85-5.65) 03/07/24 20:34 Hgb 11.70 g/dL (11.27-16.99) 03/07/24 20:34 Hct 38.6 % (36-47) 03/07/24 20:34 MCV 75.4 fl (85-98) L 03/07/24 20:34 MCH 22.9 pg (27-33) L 03/07/24 20:34 MCHC 30.3 g/dL (30-55) 03/07/24 20:34 RDW 17.4 % (12.1-15.1) H 03/07/24 20:34 Plt Count 602 10^3/cmm (157-399) H 03/07/24 20:34 MPV 9.1 fL (7.4-10.4) 03/07/24 20:34 Neut % (Auto) 66.6 % 03/07/24 20:34 Lymph % (Auto) 22.1 % 03/07/24 20:34 Mcintosh % (Auto) 7.4 % 03/07/24 20:34 Eos % (Auto) 2.5 % 03/07/24 20:34 Baso % (Auto) 0.6 % 03/07/24 20:34 Neut # (Auto) 12.03 10^3/uL (1.8-7.7) H 03/07/24 20:34 Lymph # (Auto) 4.0 10^3/uL (0.8-4.8) 03/07/24 20:34 Mcintosh # (Auto) 1.3 10^3/uL (0.2-0.9) H 03/07/24 20:34 Eos # (Auto) 0.5 10^3/uL (0.0-0.8) 03/07/24 20:34 Baso # (Auto) 0.1 10^3/uL (0.0-0.1) 03/07/24 20:34 Nucleated RBC % (auto) 0 % 03/07/24 20:34 Nucleated RBCs # 0.0 /100WBC 03/07/24 20:34 Sodium 135 mmol/L (136-145) L 03/07/24 21:31 Potassium 4.3 mmol/L (3.5-5.1) 03/07/24 21:31 Chloride 100 mmol/L (98-107) 03/07/24 21:31 Carbon Dioxide 24 mmol/L (22-29) 03/07/24 21:31 Anion Gap 15.3 (5-19) 03/07/24 21:31 BUN 8 mg/dL (6-20) 03/07/24 21:31 Creatinine 0.6 mg/dL (0.5-0.9) 03/07/24 21:31 GFR Calculation 103.4 mL/min (90-130) 03/07/24 21:31 Glucose 139 mg/dL (65-115) H 03/07/24 21:31 Calculated Osmolality 281 mOsm/kg (285-295) L 03/07/24 21:31 Calcium 8.8 mg/dL (8.5-10.5) 03/07/24 21:31 Total Bilirubin 0.2 mg/dL (0.15-1.2) 03/07/24 21:31 AST 14 U/L (0-32) 03/07/24 21:31 ALT 18 U/L (0-33) 03/07/24 21:31 Alkaline Phosphatase 101 U/L (35-105) 03/07/24 21:31 C-Reactive Protein 23.4 mg/L (0.0-4.9) H 03/07/24 21:31 Total Protein 7.4 g/dL (6.6-8.7) 03/07/24 21:31 Albumin 3.6 g/dL (3.5-5.2) 03/07/24 21:31 Globulin 3.8 g/dL (1.3-4.6) 03/07/24 21:31 All radiology interpretation(s) finalized by discharge Discharge Plan Discharge Patient Disposition: Admitted As Inpatient Admit Provider: Leona,Deanne Clinical Impression: Cellulitis Diabetes Qualifiers: Diabetes mellitus type: type 2 Diabetes mellitus half-way insulin use: with keno terminal operator use Diabetes mellitus complication status: with skin complications D iabetes mellitus complication detail: with other skin complication Qualified Code(s): E11.628 - Type 2 diabetes mellitus with other skin complications Condition: Stable Coding Level of Care Code ED Career And Guidance Counselor for Nahed Alcazar
--- NOTE | 2024-03-07 20:02 | USR_ITS ---
PROCEDURE INFORMATION: Exam: US Duplex Right Lower Extremity Veins, Limited Exam date and time: 03/07/2024 8:41 PM Age: 58 years old Clinical indication: Edema, localized; Lower extremity, right; Prior surgery; Surgery date: 1-6 months; Surgery type: Surgical excision of necrosis on the RT toe; Patient HX: Long-term smoker continues smoking. HX pvd S/P 4 arterial stents bilateral thighs. S/P RT toe surgery 5 months ago. ; Additional info: Calf red swollen painful TECHNIQUE: Imaging protocol: Real-time duplex ultrasound of the right extremity with 2-D pierce scale, color Doppler flow and spectral waveform analysis including responses to compression and other maneuvers (when performed) with image documentation. Limited exam was focused on the right lower extremity veins. COMPARISON: CT angio abd aorta runof [id number] 02/28/2024 1:11 PM FINDINGS: Right deep veins: Unremarkable. The common femoral, femoral, proximal profunda femoral, popliteal, posterior tibial, and peroneal veins are patent without thrombus. Normal Doppler waveforms. Normal compressibility and/or augmentation response. Superficial veins: Greater saphenous vein at the saphenofemoral junction is patent without thrombus. Soft tissues: Unremarkable. US/[place] [id number] IMPRESSION: No evidence of deep vein thrombosis in the right lower extremity.
[2024-03-07] MEDS: morphine 4 mg/mL SDV 1 mL IVP ×3 (20:40→22:45)
[2024-03-07 20:55] LABS: Basophils # 0.1 10^3/uL (0.0-0.1); Basophils % 0.6 %; Eosinophils # 0.5 10^3/uL (0.0-0.8); Eosinophils % 2.5 %; Hematocrit 38.6 % (36-47); Lymphocytes % 22.1 %; Mean Corpuscular HGB Conc 30.3 g/dL (30-55); Mean Corpuscular Hemoglobin 22.9 pg (27-33); Mean Corpuscular Volume 75.4 fl (85-98); Mean Platelet Volume 9.1 fL (7.4-10.4); Monocytes # 1.3 10^3/uL (0.2-0.9); Monocytes % 7.4 %; Neutrophils # 12.03 10^3/uL (1.8-7.7); Neutrophils % 66.6 %; Nucleated Red Blood Cells % 0 %; Platelet Count 602 10^3/cmm (157-399); Red Blood Count 5.12 10^6/uL (3.85-5.65); Red Cell Distribution Width 17.4 % (12.1-15.1); White Blood Count 18.07 10^3/uL (3.29-11.43)
[2024-03-07 22:07] LABS: Alanine Aminotransferase 18 U/L (0-33); Albumin Level 3.6 g/dL (3.5-5.2); Alkaline Phosphatase 101 U/L (35-105); Anion Gap 15.3 (5-19); Aspartate Amino Transferase 14 U/L (0-32); Blood Urea Nitrogen 8 mg/dL (6-20); C Reactive Protein 23.4 mg/L (0.0-4.9); Calcium 8.8 mg/dL (8.5-10.5); Carbon Dioxide 24 mmol/L (22-29); Chloride 100 mmol/L (98-107); Creatinine Clr Calc Pharmacy 110.5027; Globulin 3.8 g/dL (1.3-4.6); Glomerular Filtration Rate 103.4 mL/min (90-130); Glucose 139 mg/dL (65-115); Osmolality Calculated 281 mOsm/kg (285-295); Potassium 4.3 mmol/L (3.5-5.1); Sodium 135 mmol/L (136-145); Total Bilirubin 0.2 mg/dL (0.15-1.2); Total Protein 7.4 g/dL (6.6-8.7)
--- NOTE | 2024-03-07 22:17 | CTR_ITS ---
PROCEDURE INFORMATION: Exam: CT Right Lower Extremity With Contrast, Foot Exam date and time: 03/07/2024 10:34 PM Age: 58 years old Clinical indication: Other: Cellulitis; Additional info: Worsening cellulitis, odor, concerning for abscess TECHNIQUE: Imaging protocol: CT of the right lower extremity with intravenous contrast was performed. Exam focused on the foot. Radiation optimization: All CT scans at this facility use at least one of these dose optimization techniques: automated exposure control; mA and/or kV adjustment per patient size (includes targeted exams where dose is matched to clinical indication); or iterative reconstruction. Contrast material: OMNI 350; Contrast volume: 100 ml; Contrast route: INTRAVENOUS (IV); COMPARISON: 1. CT angio abd aorta runof 02/28/2024 1:11 PM 2. CR (LOW EXM, ) 03/04/2024 6:05 PM 3. MR foot RT wo/w con [id number] 02/23/2024 2:37 PM RADIATION DOSE METRICS: Total DLP (mGy-cm): 310.3 FINDINGS: Bones/joints: No acute fracture or dislocation. No definite evidence of osteomyelitis. Soft tissues: Extensive subcutaneous edema. No definite soft tissue abscess. CT/CT foot RT w con [id number] IMPRESSION: 1. Extensive subcutaneous edema. 2. No definite soft tissue abscess. 3. No definite evidence of osteomyelitis. If there is specific concern for osteomyelitis, consider further evaluation with MRI.
[2024-03-07] MEDS: iohexol 350 mg/mL 500 mL Btl (per mL) IV (23:03)
--- NOTE | 2024-03-07 23:25 | P.HP_ITS ---
Providers/Chief Complaint 2 Primary Care Provider: Laurel Eagle MD Chief Complaint: Right Leg pain History of Present Illness Mayra Ascencio is a 58 year old female with past medical history of COPD, carotid artery stenosis, rheumatoid arthritis, diabetes, seizures, UTI, diabetic foot ulcer chronic knee pain, hyperlipidemia, hypertension and other multitude of medical issues presents to the hospital today with complaint of right great toe worsening. She has had a chronic infection and has been on 3 different antibiotics cefdinir Bactrim and doxycycline. She also complains of worsening leg swelling over the last few days. She did come to the ER 3 days ago with similar complaints and at that time she also had right hand swelling and redness with itching which recently started. Doxycycline was stopped with the thought that she may have had a photosensitivity reaction and she was sent home to follow-up with podiatry and infectious disease. CRP and white count were not elevated at that visit. Today she presents back to the hospital with worsening pain swelling and redness that has now extended up to her calf. Venous Dopplers in ER negative for DVT. CT of the foot also obtained which ruled out abscess and no definite evidence of osteomyelitis however MRI recommended for definitive diagnosis. White count has gone up to 18,000, CRP elevated as well. Patient will be admitted for IV antibiotics at this time. She last saw infectious disease as an outpatient on 23 January. Of note UA was obtained on 04 March which showed Proteus mirabilis resistant to tetracycline nitrofurantoin levofloxacin, ciprofloxacin. Sensitive to cefepime. Medications/Allergies Home Medications Medication Instructions Recorded Confirmed Last Taken Type blood sugar diagnostic (Blood #50 ea 08/10/23 02/13/24 Unknown Rx Glucose Test strips) nitroglycerin 0.4 mg sublingual 0.4 mg sublingual Q5M PRN Chest 08/15/23 02/13/24 Unknown Rx tablet (Nitrostat) Pain #30 tabs ezetimibe 10 mg tablet 10 mg PO DAILY #30 tabs 10/05/23 02/13/24 Unknown Rx pen needle, diabetic 31 gauge x #100 ea 10/05/23 02/13/24 Unknown Rx 5/16 (Comfort EZ Pen Trinity) pen needle, diabetic 32 gauge x #100 ea 10/05/23 02/13/24 Unknown Rx 5/32 (Comfort EZ Pen Trinity) aspirin 81 mg tablet,delayed 81 mg PO QAM #30 tabs 11/22/23 02/13/24 Unknown Rx release lancets #100 ea 11/28/23 02/13/24 Unknown Rx isosorbide mononitrate 60 mg 30 mg (1/2 x 60 mg) PO BID #90 tabs 01/09/24 02/13/24 Unknown Rx tablet,extended release 24 hr metoprolol succinate 25 mg 12.5 mg (1/2 x 25 mg) PO QAM #90 01/09/24 02/13/24 Unknown Rx tablet,extended release 24 hr tabs pantoprazole 40 mg tablet,delayed 40 mg PO QAM #90 tabs 01/09/24 02/13/24 Unknown Rx release ticagrelor 90 mg tablet (Brilinta) 90 mg PO BID #180 tabs 01/09/24 02/13/24 Unknown Rx albuterol sulfate 90 mcg/actuation 2 puff inhalation Q6H PRN 01/10/24 02/13/24 Unknown Rx aerosol inhaler shortness of breath or wheezing #8.5 grams atorvastatin 80 mg tablet 80 mg PO QAM #30 tabs 01/10/24 02/13/24 Unknown Rx blood sugar diagnostic (Blood #100 ea 01/10/24 02/13/24 Unknown Rx Glucose Test strips) blood-glucose meter #1 ea 01/10/24 02/13/24 Unknown Rx cyclobenzaprine 10 mg tablet 10 mg PO TID PRN Muscle Spasm #90 01/10/24 02/13/24 Unknown Rx tabs duloxetine 60 mg capsule,delayed 60 mg PO DAILY #30 caps 01/10/24 02/13/24 Unknown Rx release empagliflozin 25 mg tablet 25 mg PO DAILY #30 tabs 01/10/24 02/13/24 Unknown Rx (Jardiance) furosemide 40 mg tablet 40 mg PO DAILY PRN Edema #30 tabs 01/10/24 02/13/24 Unknown Rx hydroxyzine HCl 25 mg tablet 25 mg PO Q6H PRN itching #20 tabs 01/10/24 02/13/24 Unknown Rx insulin detemir U-100 100 unit/mL 50 unit (0.5 mL) SUBCUT BIDWM #15 01/10/24 02/13/24 Unknown Rx (3 mL) subcutaneous pen (Levemir mL FlexPen) losartan 50 mg tablet 50 mg PO DAILY@0800 #30 tabs 01/10/24 02/13/24 Unknown Rx metformin 500 mg tablet,extended 100 mg (0.2 x 500 mg) PO BID #60 01/10/24 02/13/24 Unknown Rx release 24 hr tabs nystatin 100,000 unit/gram topical 1 applic topical BID #30 grams 01/10/24 02/13/24 Unknown Rx cream ondansetron 4 mg disintegrating 4 mg PO Q6H PRN Nausea And 01/10/24 02/13/24 Unknown Rx tablet Vomiting #20 tabs quetiapine 200 mg tablet 200 mg PO BEDTIME #30 tabs 01/10/24 02/13/24 Unknown Rx tiotropium bromide 18 mcg capsule 1 cap inhalation DAILY 30 days #30 01/10/24 02/13/24 Unknown Rx with inhalation device (Spiriva inhalations with HandiHaler) umeclidinium 62.5 mcg/actuation 1 inh inhalation DAILY #30 ea 01/10/24 02/13/24 Unknown Rx blister powder for inhalation (Incruse Ellipta) levetiracetam 750 mg tablet 750 mg PO BID #60 tabs 01/11/24 02/13/24 Unknown Rx fluconazole 150 mg tablet 150 mg PO Q3D PRN for candidiasis 01/24/24 02/13/24 Unknown Rx 30 doses #30 tabs cefdinir 300 mg capsule 300 mg PO BID 2 weeks #28 caps 02/02/24 02/13/24 Unknown Rx sulfamethoxazole 800 1 tab PO BID 90 days #180 tabs 02/02/24 02/13/24 Unknown Rx mg-trimethoprim 160 mg tablet (Bactrim DS) dulaglutide 0.75 mg/0.5 mL 0.75 mg (0.5 mL) SUBCUT Q7D #1 mL 02/09/24 02/13/24 Unknown Rx subcutaneous pen injector cilostazol 50 mg tablet 50 mg PO BID #180 tabs 02/15/24 Unknown Rx hydrocodone 5 mg-acetaminophen 325 1 tab PO Q8H PRN pain #7 tabs 03/04/24 Unknown Rx mg tablet methylprednisolone 4 mg tablets in See Rx Instructions PO .COMPLEX 03/04/24 Unknown Rx a dose pack (Medrol (Pankaj)) #21 ea tramadol 50 mg tablet 50 mg PO Q8H PRN pain #90 tabs 03/07/24 Unknown Rx Allergies Allergy/AdvReac Type Severity Reaction Status Date / Time fentanyl Allergy Unknown ALGY-Difficulty Verified 03/07/24 18:51 Breathing adhesive Allergy Unknown Verified 03/07/24 18:51 cephalexin [From Keflex] Allergy ADR-Itching Verified 03/07/24 18:51 clindamycin Allergy ADR-Itching Verified 03/07/24 18:51 codeine Allergy Unknown Verified 03/07/24 18:51 hydrocodone Allergy Unknown Verified 03/07/24 18:51 latex Allergy ALGY-Swell Verified 03/07/24 18:51 Lip/Tongue/Throat naproxen [From Naprosyn] Allergy Unknown Verified 03/07/24 18:51 nut - unspecified Allergy ALGY-Anaphy Verified 03/07/24 18:51 laxis oxycodone [From Roxicodone] Allergy ADR-Muscle Verified 03/07/24 18:51 Pain Penicillins Allergy Unknown Verified 03/07/24 18:51 tramadol Allergy ADR-Itching Verified 03/07/24 18:51 PFSH Acute 2 PFSH: Medical History 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 COPD (chronic obstructive pulmonary disease) Hypersensitivity pneumonitis Rheumatoid arthritis Infection of total left knee replacement Right wrist deformity History of stroke Acute exacerbation of chronic obstructive pulmonary disease (COPD) Acute encephalopathy Acute respiratory failure with hypoxia Acute alteration in mental status Sepsis Diabetes Sacral pressure ulcer Cellulitis of gluteal region Seizure disorder Hypoxemia Seizure UTI (urinary tract infection) Chronic, continuous use of opioids Seizures Acute and chronic respiratory failure with hypoxia Pneumonia Pneumonia Acute hypoxemic respiratory failure Stenosis of left internal carotid artery with cerebral infarction Diabetic foot ulcer Right arm weakness Hoarseness of voice Sepsis Numbness and tingling in both hands Urinary tract infection Chest pain Syncope Needs flu shot Carpal tunnel syndrome, right Urinary incontinence Chronic knee pain Abnormal stress test CAD (coronary artery disease) Acute exacerbation of CHF (congestive heart failure) Unstable angina COPD exacerbation Exposure to COVID-19 virus Compression fracture of L2 lumbar vertebra Right hip pain Dyspnea (HFpEF) heart failure with preserved eje ction fraction Candidiasis of vagina History of CVA (cerebrovascular accident) Elevated troponin Pericardial effusion Pressure ulcer Prosthetic joint infection Anemia Septic arthritis of knee, left Osteoarthritis of left knee History of hypoglycemic coma Obesity (BMI 35.0-39.9 without comorbidity) Peripheral sensory neuropathy due to type 2 diabetes mellitus Coronary artery disease due to type 2 diabetes mellitus Diabetes type 2, uncontrolled Neuropathy Insomnia Fibromyalgia, primary Hyperlipidemia, mixed CVA (cerebral vascular accident) Dyslipidemia Leukocytosis NSTEMI (non-ST elevated myocardial infarction) Thought to be secondary to plaque rupture. Angiogram July 04 no flow- limiting lesions, or restenosis of previous stent from April 2020 Chronic obstructive pulmonary disease, unspecified Vitamin D deficiency Type 2 diabetes mellitus with diabetic autonomic (poly)neuropathy Essential hypertension Encounter for long-term opiate analgesic use Opioid contract exists Current every day smoker Chronic pain of left knee Low back pain radiating to both legs Intervertebral disc disorder of lumbar region with myelopathy Lumbosacral spondylosis without myelopathy Osteoarthritis of spine at multiple levels Chronic left-sided low back pain Surgical History Status post left knee replacement History of coronary angiogram Angiogram April 2020 with 90% circumflex lesion, drug-eluting stent placed by Dr. Jerome Status post lumbar laminectomy S/P lumbar fusion DR. Shreya ZAYAS IN [place], [place] L4-L5, L5-S1 S/p bilateral carpal tunnel release History of arthroscopic surgery of elbow BILATERAL S/P hysterectomy S/P knee surgery RIGHT Family History Other CAD (coronary artery disease) Cancer Diabetes Social History Smoking and tobacco/nicotine status: current every day tobacco/nicotine user cigarettes Packs smoked per day: 0.5 Years cigarettes smoked: 10 [ Other cigarette details: PER PATIENT REPORT] Alcohol intake: former Substance/Drug Use: never Caregiver/support person: Yes Lives independently: No Housing: Jail Marital status: Unknown Marital status details: She and son state she is not service: No Current occupational status: unemployed Pets and animals: Yes Do you think of yourself as: Straight/Heterosexual Current gender identity: Female Vitals/I&O/Wt Last Vital Signs Temp 98.0 F 03/07/24 18:35 Pulse 94 03/07/24 22:30 Resp 18 03/07/24 18:35 BP 176/97 03/07/24 21:00 Pulse Ox 96 03/07/24 22:30 O2 Del Method Room Air 03/07/24 22:30 Weight last 48 hrs Weight 81.647 kg Physical Exam 2 Narrative: General: Alert oriented x3, patient seen sitting up in bed appearing comfortable at this time breathing room air. HEENT: Normocephalic, atraumatic, EOMI Cardio: Regular rate rhythm, normal S1-S2 Respiratory: Good bilateral air entry, no wheezes no rhonchi appreciated GI: Abdomen soft, nontender, nondistended, bowel sounds + Extremities: Right great toe significant erythema extending onto foot and mid calf, warm. Swelling noted. drainage present Pulses intact. 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 Patient does have a history of right great toe osteomyelitis and has had incision drainage debridement done down to the bone in November 2023. She was discharged with 6 weeks of IV antibiotics and subsequently followed up with wound care. Status post I&D on November 22, 2023. Intraoperative cultures taken on antibiotics thus far negative to date. Tissue culture and Gram stain taken on showing group A strep and MRSA. Patient has been on treatment with vancomycin and meropenem. Subsequently followed up with wound care and was placed on oral antibiotics by infectious disease doxycycline, cefdinir and Bactrim. Please see infectious disease note from January 24, 2024. 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 Venous Dopplers ruled out DVT ? Given patient's extensive history will order MRI right toe to rule out osteomyelitis ? Consult podiatry. Recommend consulting infectious disease however specialty not available at this time. ? Check serial CRP, sed rate ? Placed on vancomycin and cefepime ? Check blood cultures ? Recent urine culture 3 days ago positive for Proteus mirabilis sensitive to cefepime. Antibiotic from current admission will cover above ? Continue aspirin, Lipitor, duloxetine, Imdur, Keppra, losartan, metoprolol, Protonix, quetiapine, Brilinta ? Stop outpatient oral antibiotics at this time Full code DVT prophylaxis: Heparin SQ twice daily Attestations 2 Medical Necessity Statement*: Greater than 2 midnight stay for management of right great toe cellulitis Diagnoses Cellulitis L03.90 History of removal of joint prosthesis of knee due to infection Z98.890; Z86.19
[2024-03-08] VITALS (14 sets, daily range): BP systolic 140–174; BP diastolic 69–104; PULSE 89–103; RESP 16–20; TEMP 36.4–36.8; O2SAT 93–97
[2024-03-08 00:24] LABS: Estmated Average Glucose 186; Hemoglobin A1C 8.1 % (4.0-6.0)
[2024-03-08 00:30] LABS: Procalcitonin 0.05 ng/mL (0-0.5)
[2024-03-08] MEDS: sodium chloride 0.9% 1,000 ML 75 ML IV ×2 (00:39→15:46)
--- NOTE | 2024-03-08 00:53 | PC.NURSE ---
Patient requesting DPOA paperwork.
[2024-03-08] MEDS: vancomycin 1,250 MG/250 ML PIGGYBACK 250 MG IV ×3 (00:58→22:49)
[2024-03-08] MEDS: heparin 5,000 unit/mL INJ 1 mL 5000 UNIT SUBCUT (00:58)
[2024-03-08] MEDS: morphine 4 mg/mL SDV 1 mL IVP ×6 (01:33→22:53)
[2024-03-08] MEDS: cefepime 1,000 MG in sodium chloride 0.9% (plus) 50 ML 100 MG IV ×2 (02:06→15:41)
[2024-03-08] MEDS: hyDRALAzine 20 mg/mL INJ 1 mL 5 MG IVP (04:06)
[2024-03-08] MEDS: aspirin 81 mg EC Tablet PO (05:40)
[2024-03-08] MEDS: metoprolol succinate ER (24 HR) 25 mg Tablet 12.5 MG PO (05:40)
[2024-03-08] MEDS: atorvastatin 40 mg Tablet 80 MG PO (05:41)
[2024-03-08 06:14] LABS: Basophils # 0.1 10^3/uL (0.0-0.1); Basophils % 0.4 %; Eosinophils # 0.5 10^3/uL (0.0-0.8); Eosinophils % 3.5 %; Hematocrit 39.5 % (36-47); Lymphocytes # 3.8 10^3/uL (0.8-4.8); Lymphocytes % 27.7 %; Mean Corpuscular HGB Conc 30.1 g/dL (30-55); Mean Corpuscular Hemoglobin 22.5 pg (27-33); Mean Corpuscular Volume 74.7 fl (85-98); Monocytes # 1.3 10^3/uL (0.2-0.9); Monocytes % 9.3 %; Neutrophils # 7.97 10^3/uL (1.8-7.7); Neutrophils % 58.3 %; Nucleated Red Blood Cells % 0 %; Platelet Count 563 10^3/cmm (157-399); Red Blood Count 5.29 10^6/uL (3.85-5.65); Red Cell Distribution Width 17.1 % (12.1-15.1); White Blood Count 13.67 10^3/uL (3.29-11.43)
--- NOTE | 2024-03-08 06:32 | P.CONIM_ITS ---
Providers/Reason For Consult 2 Consulting Physician/Specialty*: Luis Butt D.P.M. Reason for Consult*: Diabetic foot infection, right Attending Physician: Deanne Delgadillo MD Primary Care Provider: Laurel Eagle MD History of Present Illness History of Present Illness Mayra Ascencio is a 58 year old female presents with increased redness and malodorous drainage right great toe. Patient's wound initially started in September 2023, started as a callus and progressed to a wound, has underwent wound care and has history of previous hospitalization. I was involved in her hospitalization in November 2023 significant for cellulitis and acute osteomyelitis seen on MRI of the head of the proximal phalanx medial condyle. During the hospitalization patient wished to pursue limb salvage efforts and was opposed to amputation. Patient at that hospitalization underwent surgical debridement down to bone cortex, bone culture significant for MRSA. Of note wound culture swab prior to bone culture was also significant for strep and Proteus species. Patient underwent surgical debridement and placement of PICC line for 6 weeks. Per chart review there was a progression of improvement, she was then discharged with wound care follow-up which continue to show more optimism and improvement up until January 2024, after having went on a trip to [place] to get her son Chay things went backwards and she had a worsening of her wound. Patient has also been followed by interventional cardiology for CAD and PAD. Review of Systems 2 General: Reports: 10 or more systems reviewed and unremarkable except in HPI and below Const: Denies: fever(s) or chills Eyes: Denies: change in vision Card: Denies: chest pain or palpitations Resp: Denies: dyspnea or productive cough GI: Denies: abdominal pain, nausea or vomiting : Denies: flank pain Musc: Reports: extremity swelling, joint stiffness and deformity Skin/Breast: Reports: erythema, sores, changes in skin color, dry skin, nail changes and change in hair Neuro: Reports: numbness in extremities, sensory changes and difficulty walking Psych: Denies: suicidal ideation Endo: Denies: change in body appearance Xavier/Lymph: Denies: tender lymph nodes Medications/Allergies Home Medications Medication Instructions Recorded Confirmed Last Taken Type blood sugar diagnostic (Blood #50 ea 08/10/23 02/13/24 Unknown Rx Glucose Test strips) nitroglycerin 0.4 mg sublingual 0.4 mg sublingual Q5M PRN Chest 08/15/23 02/13/24 Unknown Rx tablet (Nitrostat) Pain #30 tabs ezetimibe 10 mg tablet 10 mg PO DAILY #30 tabs 10/05/23 02/13/24 Unknown Rx pen needle, diabetic 31 gauge x #100 ea 10/05/23 02/13/24 Unknown Rx 5/16 (Comfort EZ Pen [place]) pen needle, diabetic 32 gauge x #100 ea 10/05/23 02/13/24 Unknown Rx 5/32 (Comfort EZ Pen [place]) aspirin 81 mg tablet,delayed 81 mg PO QAM #30 tabs 11/22/23 02/13/24 Unknown Rx release lancets #100 ea 11/28/23 02/13/24 Unknown Rx isosorbide mononitrate 60 mg 30 mg (1/2 x 60 mg) PO BID #90 tabs 01/09/24 02/13/24 Unknown Rx tablet,extended release 24 hr metoprolol succinate 25 mg 12.5 mg (1/2 x 25 mg) PO QAM #90 01/09/24 02/13/24 Unknown Rx tablet,extended release 24 hr tabs pantoprazole 40 mg tablet,delayed 40 mg PO QAM #90 tabs 01/09/24 02/13/24 Unknown Rx release ticagrelor 90 mg tablet (Brilinta) 90 mg PO BID #180 tabs 01/09/24 02/13/24 Unknown Rx albuterol sulfate 90 mcg/actuation 2 puff inhalation Q6H PRN 01/10/24 02/13/24 Unknown Rx aerosol inhaler shortness of breath or wheezing #8.5 grams atorvastatin 80 mg tablet 80 mg PO QAM #30 tabs 01/10/24 02/13/24 Unknown Rx blood sugar diagnostic (Blood #100 ea 01/10/24 02/13/24 Unknown Rx Glucose Test strips) blood-glucose meter #1 ea 01/10/24 02/13/24 Unknown Rx cyclobenzaprine 10 mg tablet 10 mg PO TID PRN Muscle Spasm #90 01/10/24 02/13/24 Unknown Rx tabs duloxetine 60 mg capsule,delayed 60 mg PO DAILY #30 caps 01/10/24 02/13/24 Unknown Rx release empagliflozin 25 mg tablet 25 mg PO DAILY #30 tabs 01/10/24 02/13/24 Unknown Rx (Jardiance) furosemide 40 mg tablet 40 mg PO DAILY PRN Edema #30 tabs 01/10/24 02/13/24 Unknown Rx hydroxyzine HCl 25 mg tablet 25 mg PO Q6H PRN itching #20 tabs 01/10/24 02/13/24 Unknown Rx insulin detemir U-100 100 unit/mL 50 unit (0.5 mL) SUBCUT BIDWM #15 01/10/24 02/13/24 Unknown Rx (3 mL) subcutaneous pen (Levemir mL FlexPen) losartan 50 mg tablet 50 mg PO DAILY@0800 #30 tabs 01/10/24 02/13/24 Unknown Rx metformin 500 mg tablet,extended 100 mg (0.2 x 500 mg) PO BID #60 01/10/24 02/13/24 Unknown Rx release 24 hr tabs nystatin 100,000 unit/gram topical 1 applic topical BID #30 grams 01/10/24 02/13/24 Unknown Rx cream ondansetron 4 mg disintegrating 4 mg PO Q6H PRN Nausea And 01/10/24 02/13/24 Unknown Rx tablet Vomiting #20 tabs quetiapine 200 mg tablet 200 mg PO BEDTIME #30 tabs 01/10/24 02/13/24 Unknown Rx tiotropium bromide 18 mcg capsule 1 cap inhalation DAILY 30 days #30 01/10/24 02/13/24 Unknown Rx with inhalation device (Spiriva inhalations with HandiHaler) umeclidinium 62.5 mcg/actuation 1 inh inhalation DAILY #30 ea 01/10/24 02/13/24 Unknown Rx blister powder for inhalation (Incruse Ellipta) levetiracetam 750 mg tablet 750 mg PO BID #60 tabs 01/11/24 02/13/24 Unknown Rx fluconazole 150 mg tablet 150 mg PO Q3D PRN for candidiasis 01/24/24 02/13/24 Unknown Rx 30 doses #30 tabs cefdinir 300 mg capsule 300 mg PO BID 2 weeks #28 caps 02/02/24 02/13/24 Unknown Rx sulfamethoxazole 800 1 tab PO BID 90 days #180 tabs 02/02/24 02/13/24 Unknown Rx mg-trimethoprim 160 mg tablet (Bactrim DS) dulaglutide 0.75 mg/0.5 mL 0.75 mg (0.5 mL) SUBCUT Q7D #1 mL 02/09/24 02/13/24 Unknown Rx subcutaneous pen injector cilostazol 50 mg tablet 50 mg PO BID #180 tabs 02/15/24 Unknown Rx hydrocodone 5 mg-acetaminophen 325 1 tab PO Q8H PRN pain #7 tabs 03/04/24 Unknown Rx mg tablet methylprednisolone 4 mg tablets in See Rx Instructions PO .COMPLEX 03/04/24 Unknown Rx a dose pack (Medrol (Pankaj)) #21 ea tramadol 50 mg tablet 50 mg PO Q8H PRN pain #90 tabs 03/07/24 Unknown Rx Allergies Allergy/AdvReac Type Severity Reaction Status Date / Time fentanyl Allergy Unknown ALGY-Difficulty Verified 03/07/24 18:51 Breathing adhesive Allergy Unknown Verified 03/07/24 18:51 cephalexin [From Keflex] Allergy ADR-Itching Verified 03/07/24 18:51 clindamycin Allergy ADR-Itching Verified 03/07/24 18:51 codeine Allergy Unknown Verified 03/07/24 18:51 hydrocodone Allergy Unknown Verified 03/07/24 18:51 latex Allergy ALGY-Swell Verified 03/07/24 18:51 Lip/Tongue/Throat naproxen [From Naprosyn] Allergy Unknown Verified 03/07/24 18:51 nut - unspecified Allergy ALGY-Anaphy Verified 03/07/24 18:51 laxis oxycodone [From Roxicodone] Allergy ADR-Muscle Verified 03/07/24 18:51 Pain Penicillins Allergy Unknown Verified 03/07/24 18:51 tramadol Allergy ADR-Itching Verified 03/07/24 18:51 Current Medications Generic Name Dose Route Start Last Admin Trade Name Freq PRN Reason Stop Dose Admin Aspirin 81 mg 03/08/24 06:00 03/08/24 05:40 Aspirin 81 Mg Ec Tablet PO 81 mg QAM YUSUF Administration Atorvastatin Calcium 80 mg 03/08/24 06:00 03/08/24 05:41 Atorvastatin 40 Mg Tablet PO 80 mg QAM YUSUF Administration Heparin Sodium (Porcine) 5,000 unit 03/07/24 23:45 03/08/24 00:58 Heparin 5,000 Unit/Ml Inj 1 Ml SUBCUT 5,000 unit Q12H YUSUF Administration Sodium Chloride 1,000 mls @ 75 mls/hr 03/07/24 23:45 03/08/24 00:39 Sodium Chloride 0.9% IV 75 mls/hr .[id number] YUSUF Administration Cefepime HCl 1,000 mg/ Sodium 50 mls @ 100 mls/hr 03/07/24 23:45 03/08/24 02:45 Chloride IV Infused Q12H YUSUF Infusion Protocol Vancomycin/PEG/NADA/Lysine/Water 1,250 mg in 250 mls @ 250 mls/hr 03/07/24 23:45 03/08/24 02:01 Vancocin IV Infused Q12H YUSUF Infusion Metoprolol Succinate 12.5 mg 03/08/24 06:00 03/08/24 05:40 Metoprolol Succinate Er (24 Hr) 25 Mg Tablet PO 12.5 mg QAM YUSUF Administration Morphine Sulfate 4 mg 03/07/24 23:37 03/08/24 05:41 Morphine 4 Mg/Ml Sdv 1 Ml IVP 4 mg Q4H PRN Administration SEVERE PAIN PFSH Acute 2 PFSH: Medical History 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 COPD (chronic obstructive pulmonary disease) Hypersensitivity pneumonitis Rheumatoid arthritis Infection of total left knee replacement Right wrist deformity History of stroke Acute exacerbation of chronic obstructive pulmonary disease (COPD) Acute encephalopathy Acute respiratory failure with hypoxia Acute alteration in mental status Sepsis Diabetes Sacral pressure ulcer Cellulitis of gluteal region Seizure disorder Hypoxemia Seizure UTI (urinary tract infection) Chronic, continuous use of opioids Seizures Acute and chronic respiratory failure with hypoxia Pneumonia Pneumonia Acute hypoxemic respiratory failure Stenosis of left internal carotid artery with cerebral infarction Diabetic foot ulcer Right arm weakness Hoarseness of voice Sepsis Numbness and tingling in both hands Urinary tract infection Chest pain Syncope Needs flu shot Carpal tunnel syndrome, right Urinary incontinence Chronic knee pain Abnormal stress test CAD (coronary artery disease) Acute exacerbation of CHF (congestive heart failure) Unstable angina COPD exacerbation Exposure to COVID-19 virus Compression fracture of L2 lumbar vertebra Right hip pain Dyspnea (HFpEF) heart failure with preserved eje ction fraction Candidiasis of vagina History of CVA (cerebrovascular accident) Elevated troponin Pericardial effusion Pressure ulcer Prosthetic joint infection Anemia Septic arthritis of knee, left Osteoarthritis of left knee History of hypoglycemic coma Obesity (BMI 35.0-39.9 without comorbidity) Peripheral sensory neuropathy due to type 2 diabetes mellitus Coronary artery disease due to type 2 diabetes mellitus Diabetes type 2, uncontrolled Neuropathy Insomnia Fibromyalgia, primary Hyperlipidemia, mixed CVA (cerebral vascular accident) Dyslipidemia Leukocytosis NSTEMI (non-ST elevated myocardial infarction) Thought to be secondary to plaque rupture. Angiogram July 04 no flow- limiting lesions, or restenosis of previous stent from April 2020 Chronic obstructive pulmonary disease, unspecified Vitamin D deficiency Type 2 diabetes mellitus with diabetic autonomic (poly)neuropathy Essential hypertension Encounter for long-term opiate analgesic use Opioid contract exists Current every day smoker Chronic pain of left knee Low back pain radiating to both legs Intervertebral disc disorder of lumbar region with myelopathy Lumbosacral spondylosis without myelopathy Osteoarthritis of spine at multiple levels Chronic left-sided low back pain Surgical History Status post left knee replacement History of coronary angiogram Angiogram April 2020 with 90% circumflex lesion, drug-eluting stent placed by Dr. Jerome Status post lumbar laminectomy S/P lumbar fusion DR. Shreya ZAYAS IN [place], [place] L4-L5, L5-S1 S/p bilateral carpal tunnel release History of arthroscopic surgery of elbow BILATERAL S/P hysterectomy S/P knee surgery RIGHT Family History Other CAD (coronary artery disease) Cancer Diabetes Social History Smoking and tobacco/nicotine status: current every day tobacco/nicotine user cigarettes Packs smoked per day: 0.5 Years cigarettes smoked: 10 [ Other cigarette details: PER PATIENT REPORT] Alcohol intake: former Substance/Drug Use: never Caregiver/support person: Yes Lives independently: No Housing: [facility] Marital status: Unknown Marital status details: She and son state she is not service: No Current occupational status: unemployed Pets and animals: Yes Do you think of yourself as: Straight/Heterosexual Current gender identity: Female Vitals/I&O/Wt Last Vital Signs Temp 97.6 F 03/08/24 03:53 Pulse 94 03/08/24 03:53 Resp 18 03/08/24 05:41 BP 174/104 03/08/24 03:53 Pulse Ox 95 03/08/24 03:53 O2 Del Method Room Air 03/08/24 01:04 03/07/24 03/07/24 03/08/24 14:59 22:59 06:59 Intake Total 540 / 540 Output Total Balance 539 / 539 Weight last 48 hrs Weight 214 lb 1.6 oz Weight 212 lb Weight 180 lb Physical Exam 2 Narrative: GENERAL: Patient is alert and oriented ?3 and in no acute distress. The following is a focused bilateral lower extremity exam. VASCULAR: Dorsalis pedis palpable bilaterally. Palpable posterior tibial arteries palpable. Capillary refill time less than 5 seconds to the distal hallux bilaterally. Calf is supple and nontender proximally and distally. Decreased pedal hair growth bilaterally. Mild pitting edema to the right lower extremity. NEUROLOGICAL: Protective sensation intact 0/10 sites, tested with Welcome Caleb monofilament to bilateral feet. DERMATOLOGICAL: Wound at the plantar medial aspect of the right hallux interphalangeal joint exposed to bone measures 2.8 cm x 1.9 cm x 0.3 cm with periwound erythema and proximal streaking to the level of the proximal leg more prominent anteriorly. Sanguinous crust at the posterior leg at the level of the Achilles without surrounding erythema, drainage, no underlying wound, no bogginess or fluctuance. MUSCULOSKELETAL: No pain to palpation or with debridement secondary to neuropathy. No crepitus with palpation of soft tissue right foot and leg. Smooth range of motion at the right hallux interphalangeal joint and right first metatarsal phalangeal joint without crepitus. CARDIOVASCULAR: S1, S2, normal rate, normal rhythm. Dorsalis pedis and posterior tibial arteries palpable. LUNGS: Clear to auscltation, no use of acessory muscles, no crackles or wheezes. Data 03/08/24 05:57 03/08/24 05:57 Micro: Microbiology 03/08/24 00:00 Blood Culture - Preliminary Blood SPECIMEN COLLECTED 03/07/24 20:34 Blood Culture - Preliminary Blood SPECIMEN COLLECTED A&P Assessment and plan (1) PAD (peripheral artery disease): (2) Type 2 diabetes mellitus with diabetic autonomic (poly)neuropathy: Qualifiers: Diabetes mellitus intermediate insulin use: unspecified intermediate insulin use status Qualified Code(s): E11.43 - Type 2 diabetes mellitus with diabetic autonomic (poly)neuropathy (3) Cellulitis of right foot: (4) Chronic osteomyelitis of right foot: (5) Non-pressure chronic ulcer of other part of left foot with necrosis of bone: PROCEDURE: Full thickness wound debridement Location: Right great toe medially hallux interphalangeal joint Local Anesthesia: none due to neuropathy Consent: Verbal Sterile Prep: with alcohol Details: Full thickness sharp debridement of the wound was performed using sterile dermal curette. The wound was debrided of hyperkeratotic rim and devitalized and fibrotic tissue down to bone, being the deepest level of debridement. 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 Empiric IV antibiotics vancomycin and cefepime X-ray and CT scan negative for acute osteo. MRI pending Bedside wound debridement performed down to bone, high suspicion for osteomyelitis, appreciate MRI. Nonweightbearing right lower extremity, may heel touch for transfers. Discussed limb salvage treatments versus right great toe amputation. Patient is open amputation at this time, will await MRI findings to further discuss treatment plan. Should she choose to proceed with amputation as a more definitive source of infection control this could be done tomorrow 03/09/2024 Coding Level of Care Code [facility] PAD (peripheral artery disease) I73.9 Type 2 diabetes mellitus with autonomic neuropathy, unspecified whether manager terminal insulin use E11.43 Diabetes mellitus manager terminal insulin use: unspecified manager terminal insulin use status Cellulitis of right foot L03.115 Chronic osteomyelitis of right foot M86.671 Non-pressure chronic ulcer of other part of left foot with necrosis of bone L97.524 Comment CPT 05268
[2024-03-08 06:43] LABS: Alanine Aminotransferase 18 U/L (0-33); Albumin Level 3.4 g/dL (3.5-5.2); Alkaline Phosphatase 101 U/L (35-105); Aspartate Amino Transferase 15 U/L (0-32); Blood Urea Nitrogen 7 mg/dL (6-20); Calcium 8.8 mg/dL (8.5-10.5); Carbon Dioxide 22 mmol/L (22-29); Chloride 105 mmol/L (98-107); Creatinine Clr Calc Pharmacy 144.8738; Globulin 3.9 g/dL (1.3-4.6); Glomerular Filtration Rate 127.6 mL/min (90-130); Glucose 168 mg/dL (65-115); Magnesium 1.6 mg/dL (1.7-2.3); Osmolality Calculated 288 mOsm/kg (285-295); Sodium 138 mmol/L (136-145); Total Bilirubin 0.2 mg/dL (0.15-1.2); Total Protein 7.3 g/dL (6.6-8.7)
[2024-03-08 06:44] LABS: C Reactive Protein 20.2 mg/L (0.0-4.9)
[2024-03-08 07:23] LABS: INR 0.85 (0.8-1.2)
[2024-03-08] MEDS: levETIRAcetam 500 mg Tablet 750 MG PO ×2 (08:51→17:27)
[2024-03-08] MEDS: losartan 50 mg Tablet PO (08:51)
[2024-03-08] MEDS: pantoprazole DR 40 mg Tablet PO (08:51)
[2024-03-08] MEDS: duloxetine 60 mg Capsule PO (08:51)
[2024-03-08] MEDS: isosorbide mononitrate ER 30 mg Tablet PO ×2 (08:51→17:27)
[2024-03-08] MEDS: docusate sodium 100 mg Capsule PO ×2 (08:51→17:28)
[2024-03-08] MEDS: ezetimibe 10 mg Tablet PO (08:51)
[2024-03-08] MEDS: ticagrelor 90 mg Tablet PO ×2 (08:51→17:27)
--- NOTE | 2024-03-08 09:30 | MR_ITS ---
WS: [id number] EXAMINATION: MR foot RT wo con* [id number] ORDER DATE: 03/08/2024 10:56 AM COMPARISON: CT 03/05/2024 and MRI 02/23/2024 HISTORY: r/o osteomyelitis CONTRAST: None TECHNIQUE: Sagittal T1, sagittal STIR, coronal PD, coronal T2, axial T1, axial T2, and axial PD imagi ng with fat saturation technique. FINDINGS: Some images degraded due to field artifact. Soft tissue edema with skin thickening involving the first phalanges. This is similar in appearance t o the recent CT. Normal fatty bone marrow signal appears preserved in the first metatarsal head and p halanges. Mild osseous erosions likely degenerative. No definite evidence of acute osteomyelitis. Soft tissue ulceration involving the lateral aspect of the first phalanges. No drainable abscess or fluid collection. 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 Soft tissue ulceration with soft tissue thickening involving the lateral as pect of the first phalanges. Fatty bone marrow signal appears preserved. No def inite evidence of osteomyelitis. No drainable fluid collections or abscess in t his area. 2. Persistent soft tissue edema with skin thickening. 3. Numerous areas of osteonecrosis similar to the prior studies involving the distal tibia, talus, calcaneus, and tarsal bones.
[2024-03-08] MEDS: diphenhydrAMINE 50 mg Capsule PO (14:13)
--- NOTE | 2024-03-08 14:15 | P.PN_ITS ---
Subjective 2 Subjective: 58-year-old female with history of COPD, carotid artery disease, RA, diabetes, seizures, diabetic foot ulcers presented with right great toe cellulitis. She was examined with bedside RN. Reports pain present. She also had pruritus on back. She does have a rash on her right arm. She did have company at bedside MRI foot done today Vitals/I&O/Wt Last Vital Signs Temp 98.0 F 03/08/24 11:31 Pulse 89 03/08/24 11:31 Resp 18 03/08/24 14:13 BP 158/71 03/08/24 11:31 Pulse Ox 95 03/08/24 11:31 O2 Del Method Room Air 03/08/24 11:31 03/07/24 03/08/24 03/08/24 22:59 06:59 14:59 Intake Total 540 / 540 1450 / 1450 Output Total Balance 539 / 539 1450 / 1450 Weight last 48 hrs Weight 214 lb 1.6 oz Weight 212 lb Weight 180 lb Physical Exam 2 Narrative: General: Alert oriented x 3, not in obvious distress sitting in a chair HEENT: Normocephalic atraumatic, EOMI Respirations: Clear to auscultation no adventitious breath sounds Cardiovascular: Regular rate rhythm GI: Soft nontender Extremity: Right great toe significant erythema extending to mid calf swelling noted drainage present pulses intact Right arm: Erythema noted Skin: Back had some excoriations Data 03/08/24 05:57 03/08/24 05:57 Micro: Microbiology 03/08/24 00:00 Blood Culture - Preliminary Blood SPECIMEN COLLECTED 03/07/24 20:34 Blood Culture - Preliminary Blood SPECIMEN COLLECTED MRI: Radiologist's impression: MR/MR foot RT wo con* [id number] IMPRESSION: 1. Soft tissue ulceration with soft tissue thickening involving the lateral aspect of the first phalanges. Fatty bone marrow signal appears preserved. No definite evidence of osteomyelitis. No drainable fluid collections or abscess in this area. 2. Persistent soft tissue edema with skin thickening. 3. Numerous areas of osteonecrosis similar to the prior studies involving the distal tibia, talus, calcaneus, and tarsal bones. 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 Patient does have a history of right great toe osteomyelitis and has had incision drainage debridement done down to the bone in November 2023. She was discharged with 6 weeks of IV antibiotics and subsequently followed up with wound care. Status post I&D on November 22, 2023. Intraoperative cultures taken on antibiotics thus far negative to date. Tissue culture and Gram stain taken on showing group A strep and MRSA. Patient has been on treatment with vancomycin and meropenem. Subsequently followed up with wound care and was placed on oral antibiotics by infectious disease doxycycline, cefdinir and Bactrim. Please see infectious disease note from January 24, 2024. 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 Venous Dopplers ruled out DVT--> no evidence of DVT ? MRI right toe to rule out osteomyelitis--> note osteomyelitis ? Consult podiatry. Recommend consulting infectious disease however specialty not available at this time. ? Check serial CRP, sed rate ? Placed on vancomycin and cefepime ? Check blood cultures ? Recent urine culture 3 days ago positive for Proteus mirabilis sensitive to cefepime. Antibiotic from current admission will cover above ? Continue aspirin, Lipitor, duloxetine, Imdur, Keppra, losartan, metoprolol, Protonix, quetiapine, Brilinta ? Stop outpatient oral antibiotics at this time We added Benadryl. She does have some right arm erythema. Will see how she responds to Benadryl. If rash persistent could consider skin biopsy or Derm follow-up. Full code DVT prophylaxis: Heparin SQ twice daily Attestations 2 Medical Necessity Statement*: Brodhead Rico Ascencio requires ongoing inpatient care for antibiotics, surgery evaluation Coding Level of Care Code 74161 Diagnoses Cellulitis L03.90 History of removal of joint prosthesis of knee due to infection Z98.890; Z86.19
[2024-03-08] MEDS: quetiapine 100 mg Tablet 200 MG PO (21:05)
[2024-03-08] MEDS: diphenhydrAMINE 50 mg/mL SDV 1mL 25 MG IVP (21:05)
[2024-03-08] MEDS: magnesium oxide 400 mg tablet PO (22:52)
[2024-03-09] VITALS (23 sets, daily range): BP systolic 116–176; BP diastolic 66–92; PULSE 84–97; RESP 15–20; TEMP 36.1–37; O2SAT 93–99
[2024-03-09] MEDS: cefepime 1,000 MG in sodium chloride 0.9% (plus) 50 ML 100 MG IV ×2 (02:59→17:39)
[2024-03-09 05:36] LABS: Basophils # 0.1 10^3/uL (0.0-0.1); Basophils % 0.8 %; Eosinophils # 0.5 10^3/uL (0.0-0.8); Eosinophils % 4.9 %; Lymphocytes # 3.1 10^3/uL (0.8-4.8); Lymphocytes % 30.8 %; Mean Corpuscular HGB Conc 29.4 g/dL (30-55); Mean Corpuscular Hemoglobin 22.5 pg (27-33); Mean Corpuscular Volume 76.4 fl (85-98); Mean Platelet Volume 9.2 fL (7.4-10.4); Monocytes % 9.5 %; Neutrophils # 5.35 10^3/uL (1.8-7.7); Neutrophils % 52.9 %; Nucleated Red Blood Cells % 0 %; Platelet Count 482 10^3/cmm (157-399); Red Blood Count 4.45 10^6/uL (3.85-5.65); Red Cell Distribution Width 17.2 % (12.1-15.1); White Blood Count 10.11 10^3/uL (3.29-11.43)
[2024-03-09 06:00] LABS: Alanine Aminotransferase 16 U/L (0-33); Albumin Level 2.9 g/dL (3.5-5.2); Alkaline Phosphatase 85 U/L (35-105); Anion Gap 12.4 (5-19); Aspartate Amino Transferase 15 U/L (0-32); Blood Urea Nitrogen 9 mg/dL (6-20); Calcium 8.5 mg/dL (8.5-10.5); Carbon Dioxide 20 mmol/L (22-29); Chloride 107 mmol/L (98-107); Creatinine Clr Calc Pharmacy 122.8721; Globulin 3.1 g/dL (1.3-4.6); Glomerular Filtration Rate 103.4 mL/min (90-130); Glucose 174 mg/dL (65-115); Magnesium 1.7 mg/dL (1.7-2.3); Osmolality Calculated 283 mOsm/kg (285-295); Potassium 4.4 mmol/L (3.5-5.1); Sodium 135 mmol/L (136-145); Total Bilirubin 0.3 mg/dL (0.15-1.2)
[2024-03-09] MEDS: atorvastatin 40 mg Tablet 80 MG PO (06:00)
[2024-03-09] MEDS: metoprolol succinate ER (24 HR) 25 mg Tablet 12.5 MG PO (06:00)
[2024-03-09 06:01] LABS: C Reactive Protein 15.9 mg/L (0.0-4.9)
[2024-03-09] MEDS: aspirin 81 mg EC Tablet PO (06:01)
[2024-03-09] MEDS: sodium chloride 0.9% 1,000 ML 75 ML IV ×2 (06:01→22:38)
[2024-03-09] MEDS: morphine 4 mg/mL SDV 1 mL IVP ×2 (06:02→17:39)
[2024-03-09] MEDS: isosorbide mononitrate ER 30 mg Tablet PO ×2 (08:51→17:38)
[2024-03-09] MEDS: losartan 50 mg Tablet PO (08:51)
[2024-03-09] MEDS: ezetimibe 10 mg Tablet PO (08:51)
[2024-03-09] MEDS: magnesium oxide 400 mg tablet PO (08:51)
[2024-03-09] MEDS: docusate sodium 100 mg Capsule PO ×2 (08:51→17:38)
[2024-03-09] MEDS: duloxetine 60 mg Capsule PO (08:51)
[2024-03-09] MEDS: levETIRAcetam 500 mg Tablet 750 MG PO ×2 (08:51→17:38)
[2024-03-09] MEDS: pantoprazole DR 40 mg Tablet PO (08:51)
[2024-03-09] MEDS: ticagrelor 90 mg Tablet PO ×2 (08:51→17:38)
--- NOTE | 2024-03-09 09:03 | PM.PN ---
Subjective Subjective: Patient is doing well today. No fevers or chills. She seems to be in good spirits. No chest pain or shortness of breath. She apparently has plans today of having her toe amputated with Dr. Butt. She is currently NPO. Redness in her leg seems to be improving. Antibiotics seem to be helping. They are worried about some transportation issues. Medications: Medication Review Details: Current Medications Acetaminophen (Acetaminophen 325 Mg Tablet) 650 mg PO Q6H PRN PRN Reason: Mild/Mod Pain Or Temp >/= 101 Albuterol/Ipratropium (Ipratropium-Albuterol 3 Ml Neb) 3 ml INHALATION Q6H PRN PRN Reason: SHORTNESS OF BREATH Aspirin (Aspirin 81 Mg Ec Tablet) 81 mg PO [facility] Last Admin: 03/09/24 06:01 Dose: 81 mg Atorvastatin Calcium (Atorvastatin 40 Mg Tablet) 80 mg PO [facility] Last Admin: 03/09/24 06:00 Dose: 80 mg Docusate Sodium (Docusate Sodium 100 Mg Capsule) 100 mg PO BID [facility] Last Admin: 03/09/24 08:51 Dose: 100 mg Duloxetine HCl (Duloxetine 60 Mg Capsule) 60 mg PO DAILY [facility] Last Admin: 03/09/24 08:51 Dose: 60 mg Ezetimibe (Ezetimibe 10 Mg Tablet) 10 mg PO DAILY [facility] Last Admin: 03/09/24 08:51 Dose: 10 mg Heparin Sodium (Porcine) (Heparin 5,000 Unit/Ml Inj 1 Ml) 5,000 unit SUBCUT Q12H [facility] Last Admin: 03/08/24 11:54 Dose: Not Given Sodium Chloride (Sodium Chloride 0.9%) 1,000 mls @ 75 mls/hr IV .[id number] [facility] Last Admin: 03/09/24 06:01 Dose: 75 mls/hr Cefepime HCl 1,000 mg/ Sodium (Chloride) 50 mls @ 100 mls/hr IV Q12H [facility]; Protocol Last Infusion: 03/09/24 04:08 Dose: Infused Vancomycin/PEG/NADA/Lysine/Water (Vancocin) 1,250 mg in 250 mls @ 250 mls/hr IV Q12H [facility] Last Infusion: 03/08/24 23:51 Dose: Infused Isosorbide Mononitrate (Isosorbide Mononitrate Er 30 Mg Tablet) 30 mg PO BID [facility] Last Admin: 03/09/24 08:51 Dose: 30 mg Lactulose (Lactulose Oral Liq 20 Gm/30 Ml Udc) 10 gm PO DAILY PRN; Protocol PRN Reason: Constipation (see protocol) Levetiracetam (Levetiracetam 500 Mg Tablet) 750 mg PO BID [facility] Last Admin: 03/09/24 08:51 Dose: 750 mg Losartan Potassium (Losartan 50 Mg Tablet) 50 mg PO DAILY@0800 [facility] Last Admin: 03/09/24 08:51 Dose: 50 mg Magnesium Oxide (Magnesium Oxide 400 Mg Tablet) 400 mg PO DAILY [facility] Last Admin: 03/09/24 08:51 Dose: 400 mg Metoprolol Succinate (Metoprolol Succinate Er (24 Hr) 25 Mg Tablet) 12.5 mg PO QAM [facility] Last Admin: 03/09/24 06:00 Dose: 12.5 mg Morphine Sulfate (Morphine 4 Mg/Ml Sdv 1 Ml) 4 mg IVP Q4H PRN PRN Reason: SEVERE PAIN Last Admin: 03/09/24 06:02 Dose: 4 mg Ondansetron HCl (Ondansetron 2 Mg/Ml Sdv 2 Ml) 4 mg IVP Q8H PRN PRN Reason: vomiting, or N/V if npo Pantoprazole Sodium (Pantoprazole Dr 40 Mg Tablet) 40 mg PO DAILY [facility] Last Admin: 03/09/24 08:51 Dose: 40 mg Quetiapine Fumarate (Quetiapine 100 Mg Tablet) 200 mg PO BEDTIME [facility] Last Admin: 03/08/24 21:05 Dose: 200 mg Ticagrelor (Ticagrelor 90 Mg Tablet) 90 mg PO BID [facility] Last Admin: 03/09/24 08:51 Dose: 90 mg Triamcinolone Acetonide (Triamcinolone 0.1% Cream 15 Gm) 1 applic TOPICAL TID PRN PRN Reason: ITCHING Vitals/I&O/Wt Last Vital Signs Temp 98.1 F 03/09/24 07:52 Pulse 84 03/09/24 07:52 Resp 16 03/09/24 07:52 BP 137/77 03/09/24 08:51 Pulse Ox 96 03/09/24 07:52 O2 Del Method Room Air 03/09/24 07:52 03/08/24 03/09/24 03/09/24 22:59 06:59 14:59 Intake Total 290 / 4040 1300 / 4040 Balance 290 / 4040 1300 / 4040 Weight last 48 hrs Weight 221 lb 4 oz Weight 214 lb 1.6 oz Weight 212 lb Weight 180 lb Physical Exam Narrative: Constitutional: Alert, no acute distress, well hydrated, well developed, well nourished. Skin: Erythema on her right leg seems to be decreased significantly from the lines that were drawn. No significant swelling. Legs are warm to touch. Dressing had recently been placed and was not removed today. Cardiovascular: RRR, no murmurs, no gallops, peripheral pulses intact, no edema. Respiratory: No respiratory distress, no accessory muscle use, clear to auscultation. Abdomen: non-distended, non-tender, normal BS, no hepatosplenomegaly, no hernias. Psych: Oriented to all spheres, affect normal. Data 03/09/24 04:59 03/09/24 04:59 Micro: Microbiology 03/08/24 00:00 Blood Culture - Preliminary Blood NEGATIVE TO DATE 03/07/24 20:34 Blood Culture - Preliminary Blood NEGATIVE TO DATE A&P Assessment and plan (1) Dermatitis: She is got kind of a red scaly dermatitis on her back. Been itching her quite a bit. She thinks it is from psoriasis. Not sure if this is from some of her antibiotics. We will go ahead and do some triamcinolone cream for now. Precautions given. (2) Diabetes: A1c done on this hospital stay was 8.1. Blood sugars recently running in the 160s to 170s. Overall doing okay. (3) Cellulitis of right foot: Cellulitis appears to be improving with the antibiotics. Continue with vancomycin and cefepime. Vanco level seem to be okay. White blood cell count and C-reactive protein have been improving. Appreciate podiatry's consultation. Continue with their current management plans. (4) Anemia: Hemoglobin dropped down a little bit today. We will probably just recheck that again tomorrow. (5) Hypoalbuminemia: Protein is low at 6.0 and albumin low at 2.9. Will have dietitian consult with her to see if we can improve her protein intake. (6) PAD (peripheral artery disease): Recent imaging reviewed. Does have some severe peripheral vascular disease. Plan Will recheck labs tomorrow. Attestations Medical Necessity Statement*: Patient is a 58-year-old female with some significant peripheral vascular disease and diabetic foot ulcer requiring surgery today and continued inpatient treatment with IV antibiotics. Coding Level of Care Code Acute Code for [facility] Diagnoses Dermatitis L30.9 Diabetes E11.9 Cellulitis of right foot L03.115 Anemia D64.9 Hypoalbuminemia E88.09 PAD (peripheral artery disease) I73.9
[2024-03-09] MEDS: sodium chloride 0.9% 1,000 ML 30 ML IV (10:25)
--- NOTE | 2024-03-09 10:49 | W.PM.OPSUD ---
Surgery/Procedure H&P Update DATE OF PROCEDURE: March 09, 2024 DATE H&P PERFORMED: 03/07/24 H&P UPDATE INFORMATION: I have reviewed H&P completed within last 30 days, I have examined patient prior to procedure, No changes to prior documentation and H&P is in [facility] [place] EMR on date indicated PREOP DIAGNOSIS: Diabetic foot infection right great toe PLANNED PROCEDURE: Operation Date: 03/09/24 16:55 Proposed Procedures p Amputation Toe/s, Right Great Toe(Right) - Luis Butt DPM
[2024-03-09] MEDS: lidocaine 1% INJ 10 mL (per mL) 20 ML INJECTION (11:04)
--- NOTE | 2024-03-09 11:31 | P.BOP_ITS ---
Date of Procedure: 12/30/23 Surgeon: Luis Butt DPM Outside Cutter Hand(s): LEONARD Procedure(s) performed: Right great toe amputation Findings of the procedure(s): Bleeding at skin margins and clean level of amputation to metatarsal phalangeal joint with clean margins. Devitalized bone at hallux interphalangeal joint medially right great toe. Estimated blood loss: 10cc Specimen(s) removed: Right great toe sent to pathology Post-operative diagnosis: Diabetic foot ulcer with devitalized bone right great toe No complications during surgery. Local anesthesia only during surgery.
--- NOTE | 2024-03-09 11:43 | P.OP_ITS ---
Operative Report Date of procedure: March 09, 2024 Pre-op diagnosis: Cellulitis right great toe Diabetic ulcer right great toe Chronic osteomyelitis right great toe Post-op diagnosis: Same Post-op findings: Devitalized bone medial aspect of right hallux interphalangeal joint corresponding to base of the wound. Procedure done: Right great toe amputation through metatarsal phalangeal joint. CPT code 05051 Implants: 3-0 Vicryl, 4-0 nylon. Specimens removed/disposition: None Pathology: right great toe sent to pathology for gross anatomic review Surgeon: Luis Butt DPM Cloth Framer: LEONARD Estimated blood loss: 10 mL 13 minutes IV fluids: 0 Urine output: 0 Complications: No complications Findings: Devitalized bone medial aspect of right hallux interphalangeal joint. Brief History: Mayra Ascencio is a 58 year old female presents with increased redness and malodorous drainage right great toe. Patient's wound initially started in September 2023, started as a callus and progressed to a wound, has underwent wound care and has history of previous hospitalization. I was involved in her hospitalization in November 2023 significant for cellulitis and acute osteomyelitis seen on MRI of the head of the proximal phalanx medial condyle. During the hospitalization patient wished to pursue limb salvage efforts and was opposed to amputation. Patient at that hospitalization underwent surgical debridement down to bone cortex, bone culture significant for MRSA. Of note wound culture swab prior to bone culture was also significant for strep and Proteus species. Patient underwent surgical debridement and placement of PICC line for 6 weeks. Per chart review there was a progression of improvement, she was then discharged with wound care follow-up which continue to show more optimism and improvement up until January 2024, after having went on a trip to [place] to get her son Chay things went backwards and she had a worsening of her wound. Patient has also been followed by interventional cardiology for CAD and PAD. Patient would like to proceed with right hallux amputation in efforts of source control as wound care efforts and PICC line and antibiotic therapy has failed to eliminate her infection. She understands that there are no guarantees at this level amputation will heal or eradicate infection, she is at risk for dehiscence, delayed healing, nonhealing and higher level of amputation. She has underlying comorbidities putting her at increased risk for wound healing complications including diabetes, peripheral arterial disease and smoking. Procedure: Patient was brought to the operating room and remained on the gurney in supine position. Timeout was performed. Right male block was utilized for local anesthesia, a total of 20 cc of one-to-one mixture 1% lidocaine and 0.5 sent Marcaine plain. Well-padded pneumatic tourniquet applied to the right ankle. Right lower extremity was scrubbed, prepped and draped utilizing normal aseptic technique. Right ankle tourniquet was inflated to 250 mmHg. Attention was directed to the right foot where a full-thickness wound probes to bone was appreciated at the medial aspect of the right great toe. Bone was devitalized of poor density and color. A fishmouth incision was planned out circumferentially about the base of the right great toe allowing a full- thickness incision through the metatarsal phalangeal joint disarticulating the right great toe sharply with a #15 blade maintaining healthy skin margins. The right great toe was passed from operative field and sent to pathology for permanent. The incision was irrigated with copious amounts of sterile skin solution. All bleeders were ligated and cauterized as necessary. Incision was then closed in a layered fashion. Deep fascial and subcutaneous tissue reapproximated with 3-0 Vicryl and skin with 4-0 nylon. The incision was dressed with Adaptic, sterile 4 x 4, Kerlix and Aaron wrap followed application of a postop shoe to the right foot. Of note patient had a wound to the lateral aspect of the right second toe is a grade 2 wound exposed to fat layer without erythema or purulent drainage, did not probe to bone. This is also dressed saline wet-to-dry. Tourniquet was deflated, hyperemic response was appreciated to the toes 2 through 5 right foot. Patient tolerated the procedure well and was transferred to the PACU with vital signs stable and vascular status intact. Following a period of postoperative monitoring she will be transferred back to the floor where she is receiving empiric IV antibiotics, she will continue this for cellulitis of the right lower extremity until resolved. Planning on prison placement.
[2024-03-09] MEDS: quetiapine 100 mg Tablet 200 MG PO (20:38)
[2024-03-09] MEDS: hyDRALAzine 20 mg/mL INJ 1 mL 10 MG IVP (21:43)
[2024-03-09 23:07] LABS: Vancomycin Trough 5.8 ug/mL (10-15)
[2024-03-10] VITALS (11 sets, daily range): BP systolic 124–173; BP diastolic 71–90; PULSE 81–101; RESP 15–20; TEMP 36.5–36.9; O2SAT 94–96
[2024-03-10] MEDS: heparin 5,000 unit/mL INJ 1 mL 5000 UNIT SUBCUT ×2 (00:10→12:01)
[2024-03-10] MEDS: morphine 4 mg/mL SDV 1 mL IVP (00:11)
[2024-03-10] MEDS: vancomycin 1,500 MG/300 ML PIGGYBACK 200 MG IV (00:50)
[2024-03-10] MEDS: morphine IR 15 mg Tablet PO ×3 (05:05→19:57)
[2024-03-10] MEDS: atorvastatin 40 mg Tablet 80 MG PO (05:05)
[2024-03-10] MEDS: aspirin 81 mg EC Tablet PO (05:06)
[2024-03-10] MEDS: metoprolol succinate ER (24 HR) 25 mg Tablet 12.5 MG PO (05:06)
[2024-03-10 05:27] LABS: Basophils # 0.1 10^3/uL (0.0-0.1); Basophils % 0.8 %; Eosinophils # 0.5 10^3/uL (0.0-0.8); Hematocrit 31.7 % (36-47); Lymphocytes # 2.8 10^3/uL (0.8-4.8); Mean Corpuscular HGB Conc 30.6 g/dL (30-55); Mean Corpuscular Hemoglobin 22.6 pg (27-33); Mean Corpuscular Volume 73.9 fl (85-98); Mean Platelet Volume 9.1 fL (7.4-10.4); Monocytes # 1.1 10^3/uL (0.2-0.9); Monocytes % 11.2 %; Neutrophils # 5.11 10^3/uL (1.8-7.7); Neutrophils % 52.8 %; Nucleated Red Blood Cells % 0 %; Platelet Count 509 10^3/cmm (157-399); Red Blood Count 4.29 10^6/uL (3.85-5.65); White Blood Count 9.67 10^3/uL (3.29-11.43)
[2024-03-10 05:42] LABS: Alanine Aminotransferase 17 U/L (0-33); Albumin Level 2.9 g/dL (3.5-5.2); Alkaline Phosphatase 85 U/L (35-105); Aspartate Amino Transferase 12 U/L (0-32); Blood Urea Nitrogen 7 mg/dL (6-20); C Reactive Protein 13.6 mg/L (0.0-4.9); Calcium 8.1 mg/dL (8.5-10.5); Carbon Dioxide 19 mmol/L (22-29); Chloride 108 mmol/L (98-107); Creatinine Clr Calc Pharmacy 150.0558; Globulin 3.2 g/dL (1.3-4.6); Glomerular Filtration Rate 127.6 mL/min (90-130); Glucose 187 mg/dL (65-115); Osmolality Calculated 287 mOsm/kg (285-295); Sodium 137 mmol/L (136-145); Total Bilirubin 0.2 mg/dL (0.15-1.2); Total Protein 6.1 g/dL (6.6-8.7)
[2024-03-10] MEDS: cefepime 1,000 MG in sodium chloride 0.9% (plus) 50 ML 100 MG IV ×2 (06:14→17:03)
[2024-03-10 06:32] LABS: Glucose Point of Care 184 mg/dL (70-110)
--- NOTE | 2024-03-10 07:21 | P.PN_ITS ---
Subjective 2 Subjective: The patient is feeling well today. She is having some pain from her surgery but it is controlled overall. The erythema from her cellulitis is improving. She tolerating foods PO. She would like to go to [facility] upon discharge if she can. Vitals/I&O/Wt Last Vital Signs Temp 97.8 F 03/10/24 04:00 Pulse 101 H 03/10/24 04:00 Resp 18 03/10/24 05:05 BP 143/73 03/10/24 04:00 Pulse Ox 95 03/10/24 04:00 O2 Del Method Room Air 03/09/24 20:00 03/09/24 03/10/24 03/10/24 22:59 06:59 14:59 Intake Total 1670.00 / 2162.50 660 / 2822.50 50 / 50 Output Total 3000 / 3002 Balance 1670.00 / 2160.50 -2340 / -179.50 50 / 50 Weight last 48 hrs Weight 228 lb 8 oz Weight 221 lb 4 oz Physical Exam 2 Narrative: Constitutional: Alert, no acute distress, well hydrated, well developed, well nourished. Skin: Significant regression of erythma from prior markings. No significant warmth noted. No abscess appreciated. Dressing in place from amputation. Cardiovascular: RRR, no murmurs, no gallops, peripheral pulses intact but weak, no edema. Respiratory: Decreased air entry bilaterally. Clear to auscultation bilaterally. No wheezes, rales or ronchi. Abdomen: non-distended, non-tender, no hepatosplenomegaly Psych: Oriented to all spheres, affect normal. Data 03/10/24 05:01 03/10/24 05:01 A&P Assessment and plan (1) Cellulitis: The patient's cellulitis seems to be improving at this time. Will continue with IV vanc and Cefepime. Blood cultures are negative so far. Will need another 1-2 days of IV antibiotics then will transition to oral antibiotics. (2) Osteomyelitis: The patient had a toe amputation yesterday. Continue with treatment recommendations per Dr Butt. I appreciate his expertise with this patient. (3) Diabetes: Blood sugar currently well controlled. Will add insulin sliding scale since she has her Metformin on hold. (4) Essential hypertension: BP stable for now. May need to adjust if increasing. (5) Urticaria: Currently stable. Continue with current meds. Attestations 2 Medical Necessity Statement*: The patient continues to need inpatient care and her stay will cross 2 midnights. She is showing signs of improvement and if she continues to do well she may be able to be discharged over the next 1 to 2 days. Coding Level of Care Code Acute Code for [facility] Diagnoses Cellulitis L03.90 Osteomyelitis M86.9 Diabetes E11.9 Essential hypertension I10 Urticaria L50.9
[2024-03-10 07:57] LABS: Glucose Point of Care 163 mg/dL (70-110)
--- NOTE | 2024-03-10 08:19 | PC.NURSE ---
Pt to OR for permacath
[2024-03-10] MEDS: insulin lispro 100 unit/1 mL SUBCUT ×4 (08:31→21:57)
[2024-03-10] MEDS: ezetimibe 10 mg Tablet PO (08:31)
[2024-03-10] MEDS: ticagrelor 90 mg Tablet PO ×2 (08:31→17:03)
[2024-03-10] MEDS: magnesium oxide 400 mg tablet PO (08:31)
[2024-03-10] MEDS: pantoprazole DR 40 mg Tablet PO (08:32)
[2024-03-10] MEDS: duloxetine 60 mg Capsule PO (08:32)
[2024-03-10] MEDS: losartan 50 mg Tablet PO (08:32)
[2024-03-10] MEDS: isosorbide mononitrate ER 30 mg Tablet PO ×2 (08:32→17:03)
[2024-03-10] MEDS: docusate sodium 100 mg Capsule PO ×2 (08:32→17:03)
[2024-03-10] MEDS: levETIRAcetam 500 mg Tablet 750 MG PO ×2 (08:32→17:03)
[2024-03-10] MEDS: triamcinolone 0.1% cream 15 gm 1 APPLIC TOPICAL (08:36)
[2024-03-10] MEDS: ketorolac 30 mg/mL INJ 15 MG IVP (09:30)
[2024-03-10 10:51] LABS: Glucose Point of Care 198 mg/dL (70-110)
[2024-03-10] MEDS: sodium chloride 0.9% 1,000 ML 75 ML IV (12:00)
[2024-03-10] MEDS: vancomycin 1,500 MG/300 ML PIGGYBACK 250 MG IV (12:00)
[2024-03-10 17:00] LABS: Glucose Point of Care 220 mg/dL (70-110)
[2024-03-10] MEDS: quetiapine 100 mg Tablet 200 MG PO (20:00)
[2024-03-10 21:18] LABS: Glucose Point of Care 152 mg/dL (70-110)
[2024-03-11] VITALS (11 sets, daily range): BP systolic 106–198; BP diastolic 58–106; PULSE 75–95; RESP 17–24; TEMP 36.4–36.9; O2SAT 92–96
[2024-03-11] MEDS: heparin 5,000 unit/mL INJ 1 mL 5000 UNIT SUBCUT ×2 (00:14→12:18)
[2024-03-11] MEDS: vancomycin 1,500 MG/300 ML PIGGYBACK 250 MG IV (00:14)
[2024-03-11] MEDS: metoprolol succinate ER (24 HR) 25 mg Tablet 12.5 MG PO (05:38)
[2024-03-11] MEDS: cefepime 1,000 MG in sodium chloride 0.9% (plus) 50 ML 100 MG IV ×2 (05:39→18:01)
[2024-03-11] MEDS: aspirin 81 mg EC Tablet PO (05:39)
[2024-03-11] MEDS: atorvastatin 40 mg Tablet 80 MG PO (05:39)
[2024-03-11 05:40] LABS: Basophils # 0.1 10^3/uL (0.0-0.1); Basophils % 0.9 %; Eosinophils # 0.5 10^3/uL (0.0-0.8); Hematocrit 33.2 % (36-47); Lymphocytes # 3.1 10^3/uL (0.8-4.8); Lymphocytes % 32.1 %; Mean Corpuscular HGB Conc 30.1 g/dL (30-55); Mean Corpuscular Hemoglobin 22.8 pg (27-33); Mean Corpuscular Volume 75.6 fl (85-98); Mean Platelet Volume 9.2 fL (7.4-10.4); Monocytes % 10.6 %; Neutrophils # 4.79 10^3/uL (1.8-7.7); Neutrophils % 49.6 %; Nucleated Red Blood Cells % 0 %; Platelet Count 525 10^3/cmm (157-399); Red Blood Count 4.39 10^6/uL (3.85-5.65); White Blood Count 9.64 10^3/uL (3.29-11.43)
[2024-03-11] MEDS: sodium chloride 0.9% 1,000 ML 75 ML IV (05:42)
[2024-03-11] MEDS: morphine IR 15 mg Tablet PO ×2 (06:06→18:17)
[2024-03-11 06:12] LABS: Alanine Aminotransferase 15 U/L (0-33); Albumin Level 3.1 g/dL (3.5-5.2); Alkaline Phosphatase 86 U/L (35-105); Anion Gap 15.1 (5-19); Aspartate Amino Transferase 14 U/L (0-32); Blood Urea Nitrogen 9 mg/dL (6-20); Carbon Dioxide 19 mmol/L (22-29); Chloride 109 mmol/L (98-107); Creatinine Clr Calc Pharmacy 148.8865; Globulin 3.2 g/dL (1.3-4.6); Glomerular Filtration Rate 127.6 mL/min (90-130); Glucose 140 mg/dL (65-115); Magnesium 1.6 mg/dL (1.7-2.3); Osmolality Calculated 289 mOsm/kg (285-295); Potassium 4.1 mmol/L (3.5-5.1); Sodium 139 mmol/L (136-145); Total Bilirubin 0.2 mg/dL (0.15-1.2); Total Protein 6.3 g/dL (6.6-8.7)
[2024-03-11 06:33] LABS: Glucose Point of Care 185 mg/dL (70-110)
--- NOTE | 2024-03-11 07:55 | P.PN_ITS ---
Subjective 2 Subjective: Patient was seen bedside this morning, her son Chay is present. 2 days status post right great toe amputation secondary to diabetic foot infection with chronic osteomyelitis. Date of operation 03/09/2024. Patient denies any subjective nausea, vomiting, fever, chills, shortness of breath or chest pain. Patient denies any acute events overnight, states her pain is well-controlled, tolerating regular diet. Vitals/I&O/Wt Last Vital Signs Temp 98.5 F 03/11/24 04:00 Pulse 94 03/11/24 04:00 Resp 18 03/11/24 06:06 BP 123/62 03/11/24 04:00 Pulse Ox 93 03/11/24 06:06 O2 Del Method Room Air 03/11/24 04:00 03/10/24 03/11/24 03/11/24 22:59 06:59 14:59 Intake Total 790 / 2080 1590 / 3670 Output Total 3 / 3 Balance 790 / 2080 1587 / 3667 Weight last 48 hrs Weight 225 lb 4 oz Weight 228 lb 8 oz Physical Exam 2 Narrative: GENERAL: Patient is alert and oriented ?3 and in no acute distress. The following is a focused bilateral lower extremity exam. VASCULAR: Dorsalis pedis palpable bilaterally. Palpable posterior tibial arteries palpable. Capillary refill time less than 5 seconds to the distal hallux bilaterally. Calf is supple and nontender proximally and distally. Decreased pedal hair growth bilaterally. Mild pitting edema to the right lower extremity. NEUROLOGICAL: Decreased protective sensation in lower extremities. DERMATOLOGICAL: Incision at right great toe amputation site is well coapted with sutures intact, no purulent drainage, subsiding erythema at the right medial forefoot. Wound at right second toe significantly improved measures 0.8 cm by point 3 cm by point 1 cm limited to breakdown of skin, no purulence. MUSCULOSKELETAL: Status post right great toe amputation Data 03/11/24 04:55 03/11/24 04:55 A&P Assessment and plan (1) PAD (peripheral artery disease): (2) Type 2 diabetes mellitus with diabetic autonomic (poly)neuropathy: Qualifiers: Diabetes mellitus vermin exterminator insulin use: unspecified vermin exterminator insulin use status Qualified Code(s): E11.43 - Type 2 diabetes mellitus with diabetic autonomic (poly)neuropathy (3) Cellulitis of right foot: (4) Chronic osteomyelitis of right foot: (5) Non-pressure chronic ulcer of other part of left foot with necrosis of bone: Plan 58-year-old diabetic female with peripheral arterial disease presents with worsening of chronic wound to right great toe. S/P right hallux amputation performed 03/09/2024 Continuing empiric IV antibiotics vancomycin and cefepime, right leg cellulitis is slowly trending in a positive direction is subsiding from line of demarcation Nonweightbearing right lower extremity, may heel touch for transfers. Plans for transfer to [facility], awaiting further subsidence of cellulitis right lower extremity and then plans for transfer on oral antibiotics and outpatient follow-up in podiatry clinic. Attestations 2 Medical Necessity Statement*: Right diabetic foot infection Coding Level of Care Code Acute Code for [facility] Diagnoses PAD (peripheral artery disease) I73.9 Type 2 diabetes mellitus with autonomic neuropathy, unspecified whether halfway insulin use E11.43 Diabetes mellitus vermin exterminator insulin use: unspecified vermin exterminator insulin use status Cellulitis of right foot L03.115 Chronic osteomyelitis of right foot M86.671 Non-pressure chronic ulcer of other part of left foot with necrosis of bone L97.524
--- NOTE | 2024-03-11 08:41 | PM.PN ---
Subjective Subjective: Patient has been doing well. Her pain is starting to be better controlled. She feels like the extended release morphine is helping better. She continues to have some pain in her leg. No drainage noted. Vitals/I&O/Wt Last Vital Signs Temp 98.5 F 03/11/24 08:12 Pulse 86 03/11/24 08:12 Resp 18 03/11/24 08:12 BP 106/58 03/11/24 08:12 Pulse Ox 92 03/11/24 08:12 O2 Del Method Room Air 03/11/24 04:00 03/10/24 03/11/24 03/11/24 22:59 06:59 14:59 Intake Total 790 / 2080 1590 / 3670 240 / 240 Output Total 3 / 3 Balance 790 / 2080 1587 / 3667 240 / 240 Weight last 48 hrs Weight 225 lb 4 oz Weight 228 lb 8 oz Physical Exam Narrative: Constitutional: Alert, no acute distress, well hydrated, well developed, well nourished. Skin: Continued regression of erythema from prior markings. Mild warmth noted. No abscess appreciated. Dressing in place from amputation. Cardiovascular: RRR, no murmurs, no gallops, peripheral pulses intact but weak, no edema. Respiratory: Decreased air entry bilaterally. Clear to auscultation bilaterally. No wheezes, rales or ronchi. Abdomen: non-distended, non-tender, no hepatosplenomegaly Psych: Oriented to all spheres, affect normal. Data 03/11/24 04:55 03/11/24 04:55 A&P Assessment and plan (1) Cellulitis of right foot: The patient cellulitis continues to show signs of improvement. That being said there are still signs of warmth and erythema present. We will plan for 2 more days of IV antibiotics and if doing well at that time consider discharge to the residential for continued oral antibiotics. Currently on Levaquin. (2) Acute osteomyelitis of right foot: The patient had a right great toe amputation and we appreciate Dr. Butt's care for the patient. Attestations Medical Necessity Statement*: The patient continues to need inpatient therapy and her stay will cross 2 midnights for treatment of cellulitis and osteomyelitis of her right great toe leading to amputation. Coding Level of Care Code Acute Code for [facility] Diagnoses Cellulitis of right foot L03.115 Acute osteomyelitis of right foot M86.171
[2024-03-11] MEDS: ticagrelor 90 mg Tablet PO ×2 (09:43→18:02)
[2024-03-11] MEDS: isosorbide mononitrate ER 30 mg Tablet PO ×2 (09:43→18:01)
[2024-03-11] MEDS: duloxetine 60 mg Capsule PO (09:43)
[2024-03-11] MEDS: magnesium oxide 400 mg tablet PO ×2 (09:43→18:02)
[2024-03-11] MEDS: ezetimibe 10 mg Tablet PO (09:43)
[2024-03-11] MEDS: levETIRAcetam 500 mg Tablet 750 MG PO ×2 (09:44→18:02)
[2024-03-11] MEDS: pantoprazole DR 40 mg Tablet PO (09:44)
[2024-03-11] MEDS: insulin lispro 100 unit/1 mL SUBCUT ×3 (09:45→18:16)
[2024-03-11] MEDS: docusate sodium 100 mg Capsule PO ×2 (09:45→18:01)
[2024-03-11 11:40] LABS: Vancomycin Trough 16.2 ug/mL (10-15)
[2024-03-11 11:42] LABS: Glucose Point of Care 191 mg/dL (70-110)
[2024-03-11] MEDS: vancomycin 1,500 MG/300 ML PIGGYBACK 200 MG IV (12:51)
[2024-03-11] MEDS: ketorolac 30 mg/mL INJ 15 MG IVP ×2 (12:53→20:22)
[2024-03-11 16:37] LABS: Glucose Point of Care 224 mg/dL (70-110)
[2024-03-11] MEDS: quetiapine 100 mg Tablet 200 MG PO (20:21)
[2024-03-11] MEDS: hyDRALAzine 20 mg/mL INJ 1 mL 10 MG IVP (20:22)
[2024-03-11 20:38] LABS: Glucose Point of Care 135 mg/dL (70-110)
[2024-03-12] VITALS (11 sets, daily range): BP systolic 100–191; BP diastolic 63–97; PULSE 81–99; RESP 16–20; TEMP 36.5–37.1; O2SAT 93–97
--- NOTE | 2024-03-12 | USR_ITS ---
Addendum created by Sanam Melendez MD on 03/14/2024 9:15 AM Central Time ( & [place]): Correction: An incorrect lower extremity template was automatically populated, however the study is of the right upper extremity. There is no evidence of deep venous thrombus in the right upper extremity including the visualized portions of the internal jugular vein, subclavian vein, axillary vein, basilic vein, brachial vein, cephalic vein, radial vein, and ulnar vein. The [facility] Final Radiology Report with Addendum Call: [phone] assistance Online chat: [email or web address] Name: SELENE MENDOZA Age: 58Years F Date: 03/12/2024 SSN: [id number] : 1965 Study: US DUPLEX EXTREM VEINS UNILAT OR LTD Requesting Physician: SUMANTH SALAZAR Images: [id number] Provided Clinical History: assess for DVT PROCEDURE INFORMATION: Exam: US Duplex Right upper Extremity Veins, Limited TECHNIQUE: Imaging protocol: Real-time duplex ultrasound of the right upper extremity with 2-D pierce scale, color Doppler flow and spectral waveform analysis including responses to compression and other maneuvers (when performed) with image documentation. Limited exam was focused on the right upper extremity veins. Initial Report created on 03/13/2024 9:39 AM Central Time ( & [place]): PROCEDURE INFORMATION: Exam: US Duplex Right Lower Extremity Veins, Limited Exam date and time: 03/12/2024 6:08 PM Age: 58 years old Clinical indication: Pain; Arm, upper; Right; Additional info: Assess for dvt TECHNIQUE: Imaging protocol: Real-time duplex ultrasound of the right extremity with 2-D pierce scale, color Doppler flow and spectral waveform analysis including responses to compression and other maneuvers (when performed) with image documentation. Limited exam was focused on the right lower extremity veins. COMPARISON: [place] [id number] 03/07/2024 8:41 PM Right deep veins: Unremarkable. The common femoral, femoral, proximal profunda femoral and popliteal veins are patent without thrombus. Normal Doppler waveforms. Normal compressibility and/or augmentation response. Superficial veins: Greater saphenous vein at the saphenofemoral junction is patent without thrombus. Soft tissues: Unremarkable. IMPRESSION: No evidence of deep vein thrombosis. Thank you for allowing us to participate in the care of your patient. Dictated and Authenticated by: Sanam Melendez MD 03/13/2024 9:39 AM Central Time ([place] & [place]) [facility]ITAL[facility]uf[facility]
[2024-03-12] MEDS: vancomycin 1,500 MG/300 ML PIGGYBACK 200 MG IV ×2 (01:13→12:46)
[2024-03-12] MEDS: heparin 5,000 unit/mL INJ 1 mL 5000 UNIT SUBCUT ×3 (01:13→23:03)
[2024-03-12] MEDS: morphine IR 15 mg Tablet PO ×3 (04:51→21:26)
[2024-03-12 05:54] LABS: Alanine Aminotransferase 15 U/L (0-33); Albumin Level 2.7 g/dL (3.5-5.2); Alkaline Phosphatase 87 U/L (35-105); Anion Gap 14.5 (5-19); Aspartate Amino Transferase 13 U/L (0-32); Blood Urea Nitrogen 11 mg/dL (6-20); Calcium 8.4 mg/dL (8.5-10.5); Carbon Dioxide 17 mmol/L (22-29); Chloride 107 mmol/L (98-107); Creatinine Clr Calc Pharmacy 150.2581; Globulin 3.3 g/dL (1.3-4.6); Glomerular Filtration Rate 127.6 mL/min (90-130); Glucose 168 mg/dL (65-115); Magnesium 1.7 mg/dL (1.7-2.3); Osmolality Calculated 281 mOsm/kg (285-295); Potassium 4.5 mmol/L (3.5-5.1); Sodium 134 mmol/L (136-145); Total Bilirubin 0.2 mg/dL (0.15-1.2)
[2024-03-12 06:03] LABS: Basophils # 0.1 10^3/uL (0.0-0.1); Basophils % 0.9 %; Eosinophils # 0.5 10^3/uL (0.0-0.8); Hematocrit 32.9 % (36-47); Lymphocytes # 2.9 10^3/uL (0.8-4.8); Mean Corpuscular HGB Conc 29.8 g/dL (30-55); Mean Corpuscular Hemoglobin 22.9 pg (27-33); Mean Corpuscular Volume 76.9 fl (85-98); Mean Platelet Volume 8.9 fL (7.4-10.4); Monocytes # 0.9 10^3/uL (0.2-0.9); Monocytes % 9.7 %; Neutrophils # 4.58 10^3/uL (1.8-7.7); Neutrophils % 50.4 %; Nucleated Red Blood Cells % 0 %; Platelet Count 492 10^3/cmm (157-399); Red Blood Count 4.28 10^6/uL (3.85-5.65); Red Cell Distribution Width 17.4 % (12.1-15.1); White Blood Count 9.07 10^3/uL (3.29-11.43)
[2024-03-12] MEDS: atorvastatin 40 mg Tablet 80 MG PO (06:16)
[2024-03-12] MEDS: metoprolol succinate ER (24 HR) 25 mg Tablet 12.5 MG PO (06:16)
[2024-03-12] MEDS: aspirin 81 mg EC Tablet PO (06:18)
[2024-03-12] MEDS: cefepime 1,000 MG in sodium chloride 0.9% (plus) 50 ML 100 MG IV (06:18)
[2024-03-12 06:24] LABS: Glucose Point of Care 165 mg/dL (70-110)
[2024-03-12] MEDS: insulin lispro 100 unit/1 mL SUBCUT ×4 (08:35→21:26)
[2024-03-12] MEDS: losartan 50 mg Tablet PO (08:39)
[2024-03-12] MEDS: isosorbide mononitrate ER 30 mg Tablet PO ×2 (08:39→17:32)
[2024-03-12] MEDS: ticagrelor 90 mg Tablet PO ×2 (08:39→17:33)
[2024-03-12] MEDS: pantoprazole DR 40 mg Tablet PO (08:39)
[2024-03-12] MEDS: ezetimibe 10 mg Tablet PO (08:39)
[2024-03-12] MEDS: duloxetine 60 mg Capsule PO (08:40)
[2024-03-12] MEDS: acetaminophen 325 mg Tablet 650 MG PO (08:40)
[2024-03-12] MEDS: levETIRAcetam 500 mg Tablet 750 MG PO ×2 (08:40→17:31)
[2024-03-12] MEDS: docusate sodium 100 mg Capsule PO ×2 (08:40→17:33)
[2024-03-12] MEDS: magnesium oxide 400 mg tablet PO ×2 (08:50→17:32)
[2024-03-12 11:13] LABS: Glucose Point of Care 222 mg/dL (70-110)
--- NOTE | 2024-03-12 12:02 | PC.SOCIAL ---
IMM Update Pg. 2 of IMM updated and reviewed with patient who verbalized understanding. Copy provided.
[2024-03-12 16:17] LABS: Glucose Point of Care 184 mg/dL (70-110)
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
--- NOTE | 2024-03-12 16:58 | CTR_ITS ---
PROCEDURE INFORMATION: Exam: CT Right Lower Extremity With Contrast, Knee Exam date and time: 03/12/2024 8:46 PM Age: 58 years old Clinical indication: Swelling or effusion of joint; Knee; Prior surgery; Surgery date: 6+ months; Additional info: Concern for septic arthritis, remote h/o right tka, now with swelling, warmth and TECHNIQUE: Imaging protocol: CT of the right lower extremity with intravenous contrast was performed. Exam focused on the knee. Radiation optimization: All CT scans at this facility use at least one of these dose optimization techniques: automated exposure control; mA and/or kV adjustment per patient size (includes targeted exams where dose is matched to clinical indication); or iterative reconstruction. Contrast material: OMNI 350; Contrast volume: 100 ml; Contrast route: INTRAVENOUS (IV); COMPARISON: CT angio abd aorta runof [id number] 02/28/2024 1:11 PM RADIATION DOSE METRICS: Total DLP (mGy-cm): 335 FINDINGS: Limitations: Extensive streak artifact from knee arthroplasty hardware. Bones/joints: No visualized fracture. Partially visualized [id number] joint effusion, not well assessed due to artifact. Soft tissues: Normal. Vasculature: Peripheral atherosclerotic vascular disease. Other findings: No other evidence of fluid collection. CT/CT knee RT w con [id number] IMPRESSION: 1. Partially visualized [id number] joint effusion. 2. Evaluation significantly limited by total right knee arthroplasty. No obvious fracture.
[2024-03-12] MEDS: sulfamethoxazole-trimeth DS 160-800 mg Tablet 1 TAB PO (17:32)
[2024-03-12] MEDS: cefdinir 300 MG CAPSULE PO (17:32)
--- NOTE | 2024-03-12 17:36 | PC.NURSE ---
pt lost iv access, notified and okayed for no iv at this time
[2024-03-12] MEDS: iohexol 350 mg/mL 500 mL Btl (per mL) IV (20:50)
[2024-03-12 21:13] LABS: Glucose Point of Care 276 mg/dL (70-110)
[2024-03-12] MEDS: quetiapine 100 mg Tablet 200 MG PO (21:26)
[2024-03-12] MEDS: ketorolac 30 mg/mL INJ 15 MG IVP (23:04)
[2024-03-13] VITALS (12 sets, daily range): BP systolic 84–174; BP diastolic 67–90; PULSE 81–90; RESP 16–20; TEMP 36.6–37.1; O2SAT 92–95
[2024-03-13] MEDS: amlodipine 5 mg Tablet PO (01:47)
[2024-03-13 04:38] LABS: Basophils # 0.1 10^3/uL (0.0-0.1); Basophils % 1.1 %; Eosinophils # 0.5 10^3/uL (0.0-0.8); Eosinophils % 4.8 %; Hematocrit 33.7 % (36-47); Lymphocytes % 30.4 %; Mean Corpuscular HGB Conc 30.3 g/dL (30-55); Mean Corpuscular Hemoglobin 22.9 pg (27-33); Mean Corpuscular Volume 75.6 fl (85-98); Monocytes % 10.1 %; Neutrophils # 5.12 10^3/uL (1.8-7.7); Neutrophils % 51.7 %; Nucleated Red Blood Cells % 0 %; Platelet Count 506 10^3/cmm (157-399); Red Blood Count 4.46 10^6/uL (3.85-5.65); Red Cell Distribution Width 17.3 % (12.1-15.1); White Blood Count 9.91 10^3/uL (3.29-11.43)
[2024-03-13 04:55] LABS: Alanine Aminotransferase 16 U/L (0-33); Albumin Level 3.3 g/dL (3.5-5.2); Alkaline Phosphatase 91 U/L (35-105); Anion Gap 13.9 (5-19); Aspartate Amino Transferase 14 U/L (0-32); Blood Urea Nitrogen 10 mg/dL (6-20); Calcium 8.5 mg/dL (8.5-10.5); Carbon Dioxide 22 mmol/L (22-29); Chloride 105 mmol/L (98-107); Creatinine Clr Calc Pharmacy 150.2581; Globulin 3.2 g/dL (1.3-4.6); Glomerular Filtration Rate 127.6 mL/min (90-130); Glucose 183 mg/dL (65-115); Osmolality Calculated 286 mOsm/kg (285-295); Potassium 4.9 mmol/L (3.5-5.1); Sodium 136 mmol/L (136-145); Total Bilirubin 0.2 mg/dL (0.15-1.2); Total Protein 6.5 g/dL (6.6-8.7)
[2024-03-13] MEDS: aspirin 81 mg EC Tablet PO (06:13)
[2024-03-13] MEDS: metoprolol succinate ER (24 HR) 25 mg Tablet 12.5 MG PO (06:13)
[2024-03-13] MEDS: atorvastatin 40 mg Tablet 80 MG PO (06:13)
--- NOTE | 2024-03-13 06:16 | PM.PN ---
Subjective Subjective: Patient was seen bedside this morning, her son Chay is present. Patient is 4 days status post right great toe amputation secondary to diabetic foot infection with chronic osteomyelitis. Date of operation 03/09/2024. Patient denies any subjective nausea, vomiting, fever, chills, shortness of breath or chest pain. Patient denies any acute events overnight, states her pain is well-controlled, tolerating regular diet. Vitals/I&O/Wt Last Vital Signs Temp 98.1 F 03/13/24 04:00 Pulse 88 03/13/24 05:55 Resp 19 H 03/13/24 04:00 BP 150/85 03/13/24 05:55 Pulse Ox 93 03/13/24 04:00 O2 Del Method Room Air 03/13/24 04:00 O2 Flow Rate 0 03/12/24 20:00 03/12/24 03/12/24 03/13/24 14:59 22:59 06:59 Intake Total 1310 / 1310 480 / 1790 Balance 1310 / 1310 480 / 1790 Weight last 48 hrs Weight 225 lb 8 oz Weight 229 lb 1 oz Physical Exam Narrative: GENERAL: Patient is alert and oriented ?3 and in no acute distress. The following is a focused bilateral lower extremity exam. VASCULAR: Dorsalis pedis palpable bilaterally. Palpable posterior tibial arteries palpable. Capillary refill time less than 5 seconds to the distal hallux bilaterally. Calf is supple and nontender proximally and distally. Decreased pedal hair growth bilaterally. Mild pitting edema to the right lower extremity. NEUROLOGICAL: Decreased protective sensation in lower extremities. DERMATOLOGICAL: Incision at right great toe amputation site is well coapted with sutures intact, no purulent drainage, subsiding erythema at the right medial forefoot. Wound at right second toe significantly improved measures 0.8 cm by point 3 cm by point 1 cm limited to breakdown of skin, no purulence. MUSCULOSKELETAL: Status post right great toe amputation Data 03/13/24 04:14 03/13/24 04:14 Micro: Microbiology 03/08/24 00:00 Blood Culture - Final Blood NO GROWTH AFTER 5 DAYS 03/07/24 20:34 Blood Culture - Final Blood NO GROWTH AFTER 5 DAYS A&P Assessment and plan (1) PAD (peripheral artery disease): (2) Type 2 diabetes mellitus with diabetic autonomic (poly)neuropathy: Qualifiers: Diabetes mellitus assisted insulin use: unspecified assisted insulin use status Qualified Code(s): E11.43 - Type 2 diabetes mellitus with diabetic autonomic (poly)neuropathy (3) Cellulitis of right foot: (4) Chronic osteomyelitis of right foot: (5) Non-pressure chronic ulcer of other part of left foot with necrosis of bone: Plan 58-year-old diabetic female with peripheral arterial disease presents with worsening of chronic wound to right great toe. S/P right hallux amputation performed 03/09/2024 Nonweightbearing right lower extremity, may heel touch for transfers. Okay for discharge on oral antibiotics. Cellulitis is nearly resolved, amputation site also is clinically stable. Will send orders for jail to change surgical dressing daily and follow-up in podiatry clinic outpatient. 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
[2024-03-13 06:31] LABS: Glucose Point of Care 200 mg/dL (70-110)
[2024-03-13] MEDS: insulin lispro 100 unit/1 mL SUBCUT ×4 (07:51→21:09)
[2024-03-13] MEDS: pantoprazole DR 40 mg Tablet PO (07:52)
[2024-03-13] MEDS: ticagrelor 90 mg Tablet PO ×2 (07:52→17:18)
[2024-03-13] MEDS: magnesium oxide 400 mg tablet PO ×2 (07:52→17:18)
[2024-03-13] MEDS: cefdinir 300 MG CAPSULE PO ×2 (07:52→17:17)
[2024-03-13] MEDS: ezetimibe 10 mg Tablet PO (07:52)
[2024-03-13] MEDS: losartan 50 mg Tablet PO (07:53)
[2024-03-13] MEDS: duloxetine 60 mg Capsule PO (07:53)
[2024-03-13] MEDS: sulfamethoxazole-trimeth DS 160-800 mg Tablet 1 TAB PO ×2 (07:53→17:18)
[2024-03-13] MEDS: docusate sodium 100 mg Capsule PO ×2 (07:53→17:18)
[2024-03-13] MEDS: levETIRAcetam 500 mg Tablet 750 MG PO ×2 (07:53→17:18)
[2024-03-13] MEDS: isosorbide mononitrate ER 30 mg Tablet PO ×2 (07:53→17:18)
[2024-03-13] MEDS: morphine IR 15 mg Tablet PO ×2 (07:59→17:17)
--- NOTE | 2024-03-13 09:42 | PM.CONSULT ---
Providers/Reason For Consult Consulting Physician/Specialty*: Hospitalist Reason for Consult*: Right knee swelling Attending Physician: Elke Gresham MD Primary Care Provider: Laurel Eagle MD History of Present Illness History of Present Illness Mayra Ascencio is a 58 year old female has erythema and wound over the right knee. Patient has a history of a total knee replacement that was put in [place] at least 10 years ago. Review of Systems General: Reports: 10 or more systems reviewed and unremarkable except in HPI and below Const: Denies: fever(s) or chills Eyes: Denies: change in vision Card: Denies: chest pain or palpitations GI: Denies: abdominal pain, nausea or vomiting : Denies: flank pain Musc: Reports: extremity swelling, joint stiffness and deformity Skin/Breast: Reports: erythema, sores, changes in skin color, dry skin, nail changes and change in hair Neuro: Reports: numbness in extremities, sensory changes and difficulty walking Psych: Denies: suicidal ideation Endo: Denies: change in body appearance Xavier/Lymph: Denies: tender lymph nodes Medications/Allergies Home Medications Medication Instructions Recorded Confirmed Last Taken Type blood sugar diagnostic (Blood #50 ea 08/10/23 03/08/24 Unknown Rx Glucose Test strips) nitroglycerin 0.4 mg sublingual 0.4 mg sublingual Q5M PRN Chest 08/15/23 03/08/24 Unknown Rx tablet (Nitrostat) Pain #30 tabs ezetimibe 10 mg tablet 10 mg PO DAILY #30 tabs 10/05/23 03/08/24 Unknown Rx pen needle, diabetic 31 gauge x #100 ea 10/05/23 03/08/24 Unknown Rx 5/16 (Comfort EZ Pen [place]) pen needle, diabetic 32 gauge x #100 ea 10/05/23 03/08/24 Unknown Rx 5/32 (Comfort EZ Pen [place]) aspirin 81 mg tablet,delayed 81 mg PO QAM #30 tabs 11/22/23 03/08/24 Unknown Rx release lancets #100 ea 11/28/23 03/08/24 Unknown Rx isosorbide mononitrate 60 mg 30 mg (1/2 x 60 mg) PO BID #90 tabs 01/09/24 03/08/24 Unknown Rx tablet,extended release 24 hr metoprolol succinate 25 mg 12.5 mg (1/2 x 25 mg) PO QAM #90 01/09/24 03/08/24 Unknown Rx tablet,extended release 24 hr tabs pantoprazole 40 mg tablet,delayed 40 mg PO QAM #90 tabs 01/09/24 03/08/24 Unknown Rx release ticagrelor 90 mg tablet (Brilinta) 90 mg PO BID #180 tabs 01/09/24 03/08/24 Unknown Rx albuterol sulfate 90 mcg/actuation 2 puff inhalation Q6H PRN 01/10/24 03/08/24 Unknown Rx aerosol inhaler shortness of breath or wheezing #8.5 grams atorvastatin 80 mg tablet 80 mg PO QAM #30 tabs 01/10/24 03/08/24 Unknown Rx blood sugar diagnostic (Blood #100 ea 01/10/24 03/08/24 Unknown Rx Glucose Test strips) blood-glucose meter #1 ea 01/10/24 03/08/24 Unknown Rx cyclobenzaprine 10 mg tablet 10 mg PO TID PRN Muscle Spasm #90 01/10/24 03/08/24 Unknown Rx tabs duloxetine 60 mg capsule,delayed 60 mg PO DAILY #30 caps 01/10/24 03/08/24 Unknown Rx release empagliflozin 25 mg tablet 25 mg PO DAILY #30 tabs 01/10/24 03/08/24 Unknown Rx (Jardiance) furosemide 40 mg tablet 40 mg PO DAILY PRN Edema #30 tabs 01/10/24 03/08/24 Unknown Rx hydroxyzine HCl 25 mg tablet 25 mg PO Q6H PRN itching #20 tabs 01/10/24 03/08/24 Unknown Rx losartan 50 mg tablet 50 mg PO DAILY@0800 #30 tabs 01/10/24 03/08/24 Unknown Rx metformin 500 mg tablet,extended 100 mg (0.2 x 500 mg) PO BID #60 01/10/24 03/08/24 Unknown Rx release 24 hr tabs nystatin 100,000 unit/gram topical 1 applic topical BID #30 grams 01/10/24 03/08/24 Unknown Rx cream ondansetron 4 mg disintegrating 4 mg PO Q6H PRN Nausea And 01/10/24 03/08/24 Unknown Rx tablet Vomiting #20 tabs quetiapine 200 mg tablet 200 mg PO BEDTIME #30 tabs 01/10/24 03/08/24 Unknown Rx tiotropium bromide 18 mcg capsule 1 cap inhalation DAILY 30 days #30 01/10/24 03/08/24 Unknown Rx with inhalation device (Spiriva inhalations with HandiHaler) umeclidinium 62.5 mcg/actuation 1 inh inhalation DAILY #30 ea 01/10/24 03/08/24 Unknown Rx blister powder for inhalation (Incruse Ellipta) levetiracetam 750 mg tablet 750 mg PO BID #60 tabs 01/11/24 03/08/24 Unknown Rx fluconazole 150 mg tablet 150 mg PO Q3D PRN for candidiasis 01/24/24 03/08/24 Unknown Rx 30 doses #30 tabs dulaglutide 0.75 mg/0.5 mL 0.75 mg (0.5 mL) SUBCUT Q7D #1 mL 02/09/24 03/08/24 Unknown Rx subcutaneous pen injector cilostazol 50 mg tablet 50 mg PO BID #180 tabs 02/15/24 03/08/24 Unknown Rx hydrocodone 5 mg-acetaminophen 325 1 tab PO Q8H PRN pain #7 tabs 03/04/24 03/08/24 Unknown Rx mg tablet methylprednisolone 4 mg tablets in See Rx Instructions PO .COMPLEX 03/04/24 03/08/24 Unknown Rx a dose pack (Medrol (Pankaj)) #21 ea tramadol 50 mg tablet 50 mg PO Q8H PRN pain #90 tabs 03/07/24 03/08/24 Unknown Rx insulin detemir U-100 100 unit/mL 25 unit SUBCUT BID 03/08/24 03/08/24 Unknown History (3 mL) subcutaneous pen (Levemir FlexPen) tobramycin 0.3 %-dexamethasone 0.1 1 drp ophthalmic (eye) DAILY 03/08/24 03/08/24 Unknown History % eye drops,suspension Allergies Allergy/AdvReac Type Severity Reaction Status Date / Time fentanyl Allergy Unknown ALGY-Difficulty Verified 03/07/24 18:51 Breathing adhesive Allergy Unknown Verified 03/07/24 18:51 cephalexin [From Keflex] Allergy ADR-Itching Verified 03/07/24 18:51 clindamycin Allergy ADR-Itching Verified 03/07/24 18:51 codeine Allergy Unknown Verified 03/07/24 18:51 hydrocodone Allergy Unknown Verified 03/07/24 18:51 latex Allergy ALGY-Swell Verified 03/07/24 18:51 Lip/Tongue/Throat naproxen [From Naprosyn] Allergy Unknown Verified 03/07/24 18:51 nut - unspecified Allergy ALGY-Anaphy Verified 03/07/24 18:51 laxis oxycodone [From Roxicodone] Allergy ADR-Muscle Verified 03/07/24 18:51 Pain Penicillins Allergy Unknown Verified 03/07/24 18:51 tramadol Allergy ADR-Itching Verified 03/07/24 18:51 doxycycline AdvReac Mild photosensit Uncoded 03/12/24 16:58 ivity Current Medications Generic Name Dose Route Start Last Admin Trade Name Freq PRN Reason Stop Dose Admin Acetaminophen 650 mg 03/07/24 23:37 03/12/24 08:40 Acetaminophen 325 Mg Tablet PO 650 mg Q6H PRN Administration Mild/Mod Pain Or Temp >/= 101 Aspirin 81 mg 03/08/24 06:00 03/13/24 06:13 Aspirin 81 Mg Ec Tablet PO 81 mg QAM YUSUF Administration Atorvastatin Calcium 80 mg 03/08/24 06:00 03/13/24 06:13 Atorvastatin 40 Mg Tablet PO 80 mg QAM YUSUF Administration Cefdinir 300 mg 03/12/24 18:00 03/13/24 07:52 Cefdinir 300 Mg Capsule PO 300 mg BID ON LICENSE OF [facility] Administration Protocol Docusate Sodium 100 mg 03/08/24 09:00 03/13/24 07:53 Docusate Sodium 100 Mg Capsule PO 100 mg BID YUSUF Administration Duloxetine HCl 60 mg 03/08/24 09:00 03/13/24 07:53 Duloxetine 60 Mg Capsule PO 60 mg DAILY YUSUF Administration Ezetimibe 10 mg 03/08/24 09:00 03/13/24 07:52 Ezetimibe 10 Mg Tablet PO 10 mg DAILY ON LICENSE OF [facility] Administration Heparin Sodium (Porcine) 5,000 unit 03/07/24 23:45 03/12/24 23:03 Heparin 5,000 Unit/Ml Inj 1 Ml SUBCUT 5,000 unit Q12H YUSUF Administration Insulin Human Lispro 0 unit 03/10/24 08:00 03/13/24 07:51 Insulin Lispro 100 Unit/1 Ml SUBCUT 6 unit WM&BEDTIME YUSUF Administration Protocol Isosorbide Mononitrate 30 mg 03/08/24 09:00 03/13/24 07:53 Isosorbide Mononitrate Er 30 Mg Tablet PO 30 mg BID YUSUF Administration Ketorolac Tromethamine 15 mg 03/10/24 09:17 03/12/24 23:04 Ketorolac 30 Mg/Ml Inj IVP 03/15/24 09:16 15 mg Q6H PRN Administration MODERATE PAIN Levetiracetam 750 mg 03/08/24 09:00 03/13/24 07:53 Levetiracetam 500 Mg Tablet PO 750 mg BID YUSUF Administration Losartan Potassium 50 mg 03/08/24 08:00 03/13/24 07:53 Losartan 50 Mg Tablet PO 50 mg DAILY@0800 YUSUF Administration Magnesium Oxide 400 mg 03/11/24 09:00 03/13/24 07:52 Magnesium Oxide 400 Mg Tablet PO 400 mg BID YUSUF Administration Metoprolol Succinate 12.5 mg 03/08/24 06:00 03/13/24 06:13 Metoprolol Succinate Er (24 Hr) 25 Mg Tablet PO 12.5 mg QAM YUSUF Administration Morphine Sulfate 15 mg 03/10/24 00:44 03/13/24 07:59 Morphine Ir 15 Mg Tablet PO 15 mg Q8H PRN Administration SEVERE PAIN Pantoprazole Sodium 40 mg 03/08/24 09:00 03/13/24 07:[address] 40 Mg Tablet PO 40 mg DAILY YUSUF Administration Quetiapine Fumarate 200 mg 03/08/24 21:00 03/12/24 21:26 Quetiapine 100 Mg Tablet PO 200 mg BEDTIME YUSUF Administration Ticagrelor 90 mg 03/08/24 09:00 03/13/24 07:52 Ticagrelor 90 Mg Tablet PO 90 mg BID YUSUF Administration Triamcinolone Acetonide 1 applic 03/09/24 09:02 03/10/24 08:36 Triamcinolone 0.1% Cream 15 Gm TOPICAL 1 applic TID PRN Administration ITCHING Trimethoprim/Sulfamethoxazole 1 tab 03/12/24 18:00 03/13/24 07:53 Sulfamethoxazole-Trimeth Ds 160-800 Mg Tablet PO 1 tab BID YUSUF Administration Protocol PFSH Acute PFSH: Medical History (Updated 03/13/24 @ 09:45 by Mata Gomez DO) Anemia 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 COPD (chronic obstructive pulmonary disease) Hypersensitivity pneumonitis Rheumatoid arthritis Infection of total left knee replacement Right wrist deformity History of stroke Acute exacerbation of chronic obstructive pulmonary disease (COPD) Acute encephalopathy Acute respiratory failure with hypoxia Acute alteration in mental status Sepsis Diabetes Sacral pressure ulcer Cellulitis of gluteal region Seizure disorder Hypoxemia Seizure UTI (urinary tract infection) Chronic, continuous use of opioids Seizures Acute and chronic respiratory failure with hypoxia Pneumonia Pneumonia Acute hypoxemic respiratory failure Stenosis of left internal carotid artery with cerebral infarction Diabetic foot ulcer Right arm weakness Hoarseness of voice Sepsis Numbness and tingling in both hands Urinary tract infection Chest pain Syncope Needs flu shot Carpal tunnel syndrome, right Urinary incontinence Chronic knee pain Abnormal stress test CAD (coronary artery disease) Acute exacerbation of CHF (congestive heart failure) Unstable angina COPD exacerbation Exposure to COVID-19 virus Compression fracture of L2 lumbar vertebra Right hip pain Dyspnea (HFpEF) heart failure with preserved ejection fraction Candidiasis of vagina History of CVA (cerebrovascular accident) Elevated troponin Pericardial effusion Pressure ulcer Prosthetic joint infection Septic arthritis of knee, left Osteoarthritis of left knee History of hypoglycemic coma Obesity (BMI 35.0-39.9 without comorbidity) Peripheral sensory neuropathy due to type 2 diabetes mellitus Coronary artery disease due to type 2 diabetes mellitus Diabetes type 2, uncontrolled Neuropathy Insomnia Fibromyalgia, primary Hyperlipidemia, mixed CVA (cerebral vascular accident) Dyslipidemia Leukocytosis NSTEMI (non-ST elevated myocardial infarction) Thought to be secondary to plaque rupture. Angiogram July 04 no flow-limiting lesions, or restenosis of previous stent from April 2020 Chronic obstructive pulmonary disease, unspecified Vitamin D deficiency Type 2 diabetes mellitus with diabetic autonomic (poly)neuropathy Essential hypertension Encounter for long-term opiate analgesic use Opioid contract exists Current every day smoker Chronic pain of left knee Low back pain radiating to both legs Intervertebral disc disorder of lumbar region with myelopathy Lumbosacral spondylosis without myelopathy Osteoarthritis of spine at multiple levels Chronic left-sided low back pain Surgical History Status post left knee replacement History of coronary angiogram Angiogram April 2020 with 90% circumflex lesion, drug-eluting stent placed by Dr. Jerome Status post lumbar laminectomy S/P lumbar fusion DR. Shreya ZAYAS IN [place] L4-L5, L5-S1 S/p bilateral carpal tunnel release History of arthroscopic surgery of elbow BILATERAL S/P hysterectomy S/P knee surgery RIGHT Family History Other CAD (coronary artery disease) Cancer Diabetes Social History Smoking and tobacco/nicotine status: current every day tobacco/nicotine user cigarettes Packs smoked per day: 0.5 Years cigarettes smoked: 10 [ Other cigarette details: PER PATIENT REPORT] Alcohol intake: former Substance/Drug Use: never Caregiver/support person: Yes Lives independently: No Housing: [facility] Marital status: Unknown Marital status details: She and son state she is not service: No Current occupational status: unemployed Pets and animals: Yes Do you think of yourself as: Straight/Heterosexual Current gender identity: Female Vitals/I&O/Wt Last Vital Signs Temp 98.2 F 03/13/24 07:38 Pulse 90 03/13/24 08:46 Resp 16 03/13/24 08:46 BP 119/75 03/13/24 07:53 Pulse Ox 92 03/13/24 08:46 O2 Del Method Room Air 03/13/24 08:46 O2 Flow Rate 0 03/12/24 20:00 03/12/24 03/13/24 03/13/24 22:59 06:59 14:59 Intake Total 480 / 1790 60 / 60 Balance 480 / 1790 60 / 60 Weight last 48 hrs Weight 225 lb 8 oz Weight 229 lb 1 oz Physical Exam Narrative: Erythema seems to decrease from where the lines drawn on her leg. Data 03/13/24 04:14 03/13/24 04:14 Micro: Microbiology 03/08/24 00:00 Blood Culture - Final Blood NO GROWTH AFTER 5 DAYS 03/07/24 20:34 Blood Culture - Final Blood NO GROWTH AFTER 5 DAYS A&P Assessment and plan (1) Knee pain: Recommend ultrasound guided aspiration of the right knee. To rule out infection. Qualifiers: Chronicity: acute Laterality: right Qualified Code(s): M25.561 - Pain in right knee Coding Level of Care Code Acute Code for [facility] Fwd Diagnoses Acute pain of right knee M25.561 Chronicity: acute Laterality: right
[2024-03-13] MEDS: heparin 5,000 unit/mL INJ 1 mL 5000 UNIT SUBCUT ×2 (11:30→23:36)
[2024-03-13 11:31] LABS: Glucose Point of Care 238 mg/dL (70-110)
[2024-03-13] MEDS: ketorolac 30 mg/mL INJ 15 MG IVP (11:35)
--- NOTE | 2024-03-13 13:00 | US_ITS ---
WS: [id number] ULTRASOUND SOFT TISSUES RIGHT knee joint. HISTORY: RIGHT KNEE SUPRAPATELLAR FLUID COMPARISON: None available. TECHNIQUE: 2-D and color Doppler imaging is submitted. Ultrasound is directed to the RIGHT knee to evaluate for possible fluid collection for drainage. Diann ent is status post RIGHT knee arthroplasty. There is no identifiable fluid collection surrounding the RIGHT knee with attention to the suprapatel lar bursa. There is a small amount of soft tissue edema but no focal collection. No inflammatory johnson ges or increased vascularity. US/US soft tissue/extremity [id number] IMPRESSION: No identifiable joint effusion for which aspiration is possible.
--- NOTE | 2024-03-13 13:58 | PC.NURSE ---
Patient became very agitated after having a visitor named Na. Patient stated she needed to go to her truck. This nurse explained that she couldn't leave the floor with IV access and if she left the grounds, she would have to sign out AMA. Patient stated she wasn't leaving and just needed to get something out of her truck. This nurse contacted security and it was explained that if patient was on a hold, we couldn't stop patient from leaving. This nurse removed patient's IV access and explained that this was non-smoking grounds. Patient understood and son took patient outside.
[2024-03-13] MEDS: tobramycin-dexametha Op Susp 5 mL Btl 1 DROP EYE-RIGHT ×2 (15:34→21:08)
[2024-03-13] MEDS: NON-FORMULARY MEDICATION 0.75 EACH SUBCUT (15:34)
[2024-03-13 16:15] LABS: Glucose Point of Care 229 mg/dL (70-110)
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
[2024-03-13 20:39] LABS: Glucose Point of Care 238 mg/dL (70-110)
[2024-03-13] MEDS: quetiapine 100 mg Tablet 200 MG PO (21:08)
[2024-03-13] MEDS: triamcinolone 0.1% cream 15 gm 1 APPLIC TOPICAL (21:08)
[2024-03-14] VITALS (11 sets, daily range): BP systolic 119–166; BP diastolic 64–90; PULSE 79–94; RESP 16–20; TEMP 36.6–37.3; O2SAT 93–98
[2024-03-14] MEDS: tobramycin-dexametha Op Susp 5 mL Btl 1 DROP EYE-RIGHT ×4 (04:01→20:31)
[2024-03-14] MEDS: morphine IR 15 mg Tablet PO ×3 (04:01→20:31)
[2024-03-14] MEDS: aspirin 81 mg EC Tablet PO (05:48)
[2024-03-14] MEDS: metoprolol succinate ER (24 HR) 25 mg Tablet 12.5 MG PO (05:48)
[2024-03-14] MEDS: atorvastatin 40 mg Tablet 80 MG PO (05:48)
[2024-03-14 07:05] LABS: Glucose Point of Care 266 mg/dL (70-110)
[2024-03-14] MEDS: triamcinolone 0.1% cream 15 gm 1 APPLIC TOPICAL ×2 (08:14→17:06)
[2024-03-14] MEDS: insulin lispro 100 unit/1 mL SUBCUT ×4 (08:14→21:17)
[2024-03-14] MEDS: duloxetine 60 mg Capsule PO (08:15)
[2024-03-14] MEDS: ezetimibe 10 mg Tablet PO (08:15)
[2024-03-14] MEDS: magnesium oxide 400 mg tablet PO ×2 (08:15→17:47)
[2024-03-14] MEDS: sulfamethoxazole-trimeth DS 160-800 mg Tablet 1 TAB PO ×2 (08:15→17:46)
[2024-03-14] MEDS: ticagrelor 90 mg Tablet PO ×2 (08:15→17:47)
[2024-03-14] MEDS: cefdinir 300 MG CAPSULE PO ×2 (08:15→17:46)
[2024-03-14] MEDS: levETIRAcetam 500 mg Tablet 750 MG PO ×2 (08:15→17:46)
[2024-03-14] MEDS: isosorbide mononitrate ER 30 mg Tablet PO (08:15)
[2024-03-14] MEDS: docusate sodium 100 mg Capsule PO ×2 (08:16→17:47)
[2024-03-14] MEDS: losartan 50 mg Tablet PO (08:16)
[2024-03-14] MEDS: pantoprazole DR 40 mg Tablet PO (08:16)
[2024-03-14 11:43] LABS: Glucose Point of Care 169 mg/dL (70-110)
[2024-03-14] MEDS: heparin 5,000 unit/mL INJ 1 mL 5000 UNIT SUBCUT ×2 (11:55→23:26)
--- NOTE | 2024-03-14 12:47 | PC.SOCIAL ---
IMM Updated Updated pt on IMM. No questions voiced. Provided pt a copy. Initialed, dated, & timed copy in chart.
--- NOTE | 2024-03-14 15:44 | P.PN_ITS ---
Subjective 2 Subjective: No changes today knee has minimal erythema pain is controlled. Vitals/I&O/Wt Last Vital Signs Temp 98.5 F 03/14/24 12:00 Pulse 82 03/14/24 12:00 Resp 17 03/14/24 12:00 BP 151/81 03/14/24 12:00 Pulse Ox 93 03/14/24 12:00 O2 Del Method Room Air 03/14/24 08:27 O2 Flow Rate 3 03/13/24 20:00 03/14/24 03/14/24 03/14/24 06:59 14:59 22:59 Intake Total 360 / 900 180 / 180 Balance 360 / 900 180 / 180 Weight last 48 hrs Weight 228 lb 2 oz Weight 225 lb 8 oz Physical Exam 2 Narrative: Erythema is decreased Data 03/13/24 04:14 03/13/24 04:14 A&P Assessment and plan (1) Knee pain: Ultrasound guided aspiration was attempted yesterday however there was no fluid in the knee to aspirate. At this point would continue current treatment. And follow-up as needed. Qualifiers: Chronicity: acute Laterality: right Qualified Code(s): M25.561 - Pain in right knee Attestations 2 Medical Necessity Statement*: Per primary service Coding Level of Care Code Acute Code for [facility] Diagnoses Acute pain of right knee M25.561 Chronicity: acute Laterality: right
[2024-03-14 16:01] LABS: Glucose Point of Care 203 mg/dL (70-110)
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
[2024-03-14] MEDS: quetiapine 100 mg Tablet 200 MG PO (20:31)
[2024-03-14 20:59] LABS: Glucose Point of Care 223 mg/dL (70-110)
[2024-03-15] VITALS (11 sets, daily range): BP systolic 115–190; BP diastolic 69–98; PULSE 76–96; RESP 15–18; TEMP 36.6–37.1; O2SAT 91–94
[2024-03-15] MEDS: tobramycin-dexametha Op Susp 5 mL Btl 1 DROP EYE-RIGHT ×3 (03:43→20:35)
[2024-03-15] MEDS: metoprolol succinate ER (24 HR) 25 mg Tablet 12.5 MG PO (05:29)
[2024-03-15] MEDS: aspirin 81 mg EC Tablet PO (05:29)
[2024-03-15] MEDS: atorvastatin 40 mg Tablet 80 MG PO (05:29)
[2024-03-15] MEDS: morphine IR 15 mg Tablet PO ×3 (05:30→22:00)
[2024-03-15 05:38] LABS: Basophils # 0.1 10^3/uL (0.0-0.1); Basophils % 1.1 %; Eosinophils # 0.6 10^3/uL (0.0-0.8); Eosinophils % 5.7 %; Hematocrit 33.7 % (36-47); Lymphocytes # 4.1 10^3/uL (0.8-4.8); Lymphocytes % 39.7 %; Mean Corpuscular HGB Conc 30.9 g/dL (30-55); Mean Corpuscular Hemoglobin 22.9 pg (27-33); Mean Corpuscular Volume 74.1 fl (85-98); Mean Platelet Volume 8.8 fL (7.4-10.4); Monocytes % 9.4 %; Neutrophils # 4.35 10^3/uL (1.8-7.7); Neutrophils % 42.4 %; Nucleated Red Blood Cells % 0 %; Platelet Count 564 10^3/cmm (157-399); Red Blood Count 4.55 10^6/uL (3.85-5.65); Red Cell Distribution Width 17.5 % (12.1-15.1); White Blood Count 10.29 10^3/uL (3.29-11.43)
[2024-03-15 06:02] LABS: Alanine Aminotransferase 18 U/L (0-33); Albumin Level 3.3 g/dL (3.5-5.2); Alkaline Phosphatase 87 U/L (35-105); Anion Gap 13.7 (5-19); Aspartate Amino Transferase 26 U/L (0-32); Blood Urea Nitrogen 10 mg/dL (6-20); Calcium 9.3 mg/dL (8.5-10.5); Carbon Dioxide 24 mmol/L (22-29); Chloride 104 mmol/L (98-107); Creatinine Clr Calc Pharmacy 123.1908; Globulin 3.4 g/dL (1.3-4.6); Glomerular Filtration Rate 103.4 mL/min (90-130); Glucose 197 mg/dL (65-115); Osmolality Calculated 289 mOsm/kg (285-295); Potassium 4.7 mmol/L (3.5-5.1); Sodium 137 mmol/L (136-145); Total Bilirubin 0.2 mg/dL (0.15-1.2); Total Protein 6.7 g/dL (6.6-8.7)
[2024-03-15 06:08] LABS: Slide Review Slide Review Perform
[2024-03-15 06:33] LABS: Glucose Point of Care 179 mg/dL (70-110)
[2024-03-15] MEDS: losartan 50 mg Tablet PO (09:29)
[2024-03-15] MEDS: duloxetine 60 mg Capsule PO (09:29)
[2024-03-15] MEDS: levETIRAcetam 500 mg Tablet 750 MG PO ×2 (09:29→17:46)
[2024-03-15] MEDS: ticagrelor 90 mg Tablet PO ×2 (09:29→17:56)
[2024-03-15] MEDS: ezetimibe 10 mg Tablet PO (09:30)
[2024-03-15] MEDS: sulfamethoxazole-trimeth DS 160-800 mg Tablet 1 TAB PO ×2 (09:30→17:46)
[2024-03-15] MEDS: insulin lispro 100 unit/1 mL SUBCUT ×4 (09:30→21:23)
[2024-03-15] MEDS: pantoprazole DR 40 mg Tablet PO (09:30)
[2024-03-15] MEDS: docusate sodium 100 mg Capsule PO ×2 (09:30→17:46)
[2024-03-15] MEDS: magnesium oxide 400 mg tablet PO ×2 (09:30→17:46)
[2024-03-15] MEDS: cefdinir 300 MG CAPSULE PO ×2 (09:30→17:48)
[2024-03-15 11:30] LABS: Glucose Point of Care 183 mg/dL (70-110)
[2024-03-15] MEDS: heparin 5,000 unit/mL INJ 1 mL 5000 UNIT SUBCUT ×2 (12:03→23:36)
--- NOTE | 2024-03-15 12:27 | PM.PN ---
Subjective Subjective: Patient was seen bedside this morning, her son Chay is present. Patient is status post right great toe amputation secondary to diabetic foot infection with chronic osteomyelitis. Date of operation 03/09/2024. Patient denies any subjective nausea, vomiting, fever, chills, shortness of breath or chest pain. Patient denies any acute events overnight, states her pain is well-controlled, tolerating regular diet. Vitals/I&O/Wt Last Vital Signs Temp 98.2 F 03/15/24 11:07 Pulse 95 03/15/24 11:07 Resp 15 03/15/24 11:07 BP 121/76 03/15/24 11:07 Pulse Ox 91 03/15/24 11:07 O2 Del Method Room Air 03/15/24 11:07 O2 Flow Rate 3 03/13/24 20:00 03/14/24 03/15/24 03/15/24 22:59 06:59 14:59 Intake Total 480 / 660 480 / 1140 960 / 960 Balance 480 / 660 480 / 1140 960 / 960 Weight last 48 hrs Weight 222 lb 5 oz Weight 228 lb 2 oz Physical Exam Narrative: GENERAL: Patient is alert and oriented ?3 and in no acute distress. The following is a focused bilateral lower extremity exam. VASCULAR: Dorsalis pedis palpable bilaterally. Palpable posterior tibial arteries palpable. Capillary refill time less than 5 seconds to the distal hallux bilaterally. Calf is supple and nontender proximally and distally. Decreased pedal hair growth bilaterally. Mild pitting edema to the right lower extremity. NEUROLOGICAL: Decreased protective sensation in lower extremities. DERMATOLOGICAL: Incision at right great toe amputation site is well coapted with sutures intact, no purulent drainage, subsiding erythema at the right medial forefoot. Wound at right second toe significantly improved measures 0.8 cm by point 3 cm by point 1 cm limited to breakdown of skin, no purulence. MUSCULOSKELETAL: Status post right great toe amputation Data 03/15/24 05:30 03/15/24 05:30 A&P Assessment and plan (1) PAD (peripheral artery disease): (2) Type 2 diabetes mellitus with diabetic autonomic (poly)neuropathy: Qualifiers: Diabetes mellitus long term care pharmacist insulin use: unspecified long term care pharmacist insulin use status Qualified Code(s): E11.43 - Type 2 diabetes mellitus with diabetic autonomic (poly)neuropathy (3) Cellulitis of right foot: (4) Chronic osteomyelitis of right foot: (5) Non-pressure chronic ulcer of other part of left foot with necrosis of bone: Plan 58-year-old diabetic female with peripheral arterial disease presents with worsening of chronic wound to right great toe. S/P right hallux amputation performed 03/09/2024 Nonweightbearing right lower extremity, may heel touch for transfers. Okay for discharge on oral antibiotics. Cellulitis is nearly resolved, amputation site also is clinically stable. Will send orders for group home to change surgical dressing daily and follow-up in podiatry clinic outpatient. Attestations Medical Necessity Statement*: Diabetic foot infection, right foot Coding Level of Care Code Acute Code for [facility] Diagnoses PAD (peripheral artery disease) I73.9 Type 2 diabetes mellitus with autonomic neuropathy, unspecified whether long term care pharmacist insulin use E11.43 Diabetes mellitus long term care pharmacist insulin use: unspecified long term care pharmacist insulin use status Cellulitis of right foot L03.115 Chronic osteomyelitis of right foot M86.671 Non-pressure chronic ulcer of other part of left foot with necrosis of bone L97.524
[2024-03-15 17:17] LABS: Glucose Point of Care 165 mg/dL (70-110)
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
[2024-03-15] MEDS: quetiapine 100 mg Tablet 200 MG PO (20:35)
[2024-03-15 20:57] LABS: Glucose Point of Care 183 mg/dL (70-110)
--- NOTE | 2024-03-15 21:42 | PC.NURSE ---
Patient had a blood pressure of 190/88. Dr. Lorenz notified and ordered 5mg of amlodipine. This nurse went to give the patient the amlodipine and she stated, I'm not f*cking taking that! If you would give me a pain pill it would go down. Dr. Karimi notified and asked about the patients allergy to hydrocodone since it is on her home med list but also listed as an allergy. This nurse went in to ask the patient to clarify. She raised her voice and said, I'm f*cking allergic to that! It's only on my home medication list because the ER gave it to me. The son then said, If you give her hydrocodone you will be giving her benadryl with it because she gets a rash and itchy and I will ensure you do so. Dr. Marie notified. Waiting on further orders.
[2024-03-16] VITALS (7 sets, daily range): BP systolic 100–166; BP diastolic 62–74; PULSE 78–94; RESP 16–18; TEMP 36.7–36.8; O2SAT 91–95
[2024-03-16] MEDS: tobramycin-dexametha Op Susp 5 mL Btl 1 DROP EYE-RIGHT (02:52)
[2024-03-16] MEDS: atorvastatin 40 mg Tablet 80 MG PO (05:47)
[2024-03-16] MEDS: metoprolol succinate ER (24 HR) 25 mg Tablet PO (05:47)
[2024-03-16] MEDS: aspirin 81 mg EC Tablet PO (05:47)
[2024-03-16 06:50] LABS: Glucose Point of Care 209 mg/dL (70-110)
[2024-03-16] MEDS: insulin lispro 100 unit/1 mL SUBCUT ×2 (07:40→12:46)
[2024-03-16] MEDS: ezetimibe 10 mg Tablet PO (08:40)
[2024-03-16] MEDS: magnesium oxide 400 mg tablet PO (08:40)
[2024-03-16] MEDS: duloxetine 60 mg Capsule PO (08:41)
[2024-03-16] MEDS: pantoprazole DR 40 mg Tablet PO (08:41)
[2024-03-16] MEDS: docusate sodium 100 mg Capsule PO (08:41)
[2024-03-16] MEDS: losartan 50 mg Tablet PO (08:41)
[2024-03-16] MEDS: ticagrelor 90 mg Tablet PO (08:41)
[2024-03-16] MEDS: levETIRAcetam 500 mg Tablet 750 MG PO (08:41)
[2024-03-16] MEDS: cefdinir 300 MG CAPSULE PO (08:41)
[2024-03-16] MEDS: sulfamethoxazole-trimeth DS 160-800 mg Tablet 1 TAB PO (08:41)
--- NOTE | 2024-03-16 08:51 | PC.SOCIAL ---
IMM Updated Updated pt on IMM. No questions voiced. Provided pt a copy. Initialed, dated, & timed copy in chart.
[2024-03-16 11:00] LABS: Glucose Point of Care 253 mg/dL (70-110)
[2024-03-16] MEDS: morphine IR 15 mg Tablet PO (12:31)
[2024-03-16] MEDS: heparin 5,000 unit/mL INJ 1 mL 5000 UNIT SUBCUT (12:46)
--- NOTE | 2024-03-16 15:04 | PC.NURSE ---
SCD Refusal: Pt stated, I am not wearing those damn things!
--- NOTE | 2024-03-16 17:44 | P.DS_ITS ---
Discharge Providers Date of Admission: 03/07/24 23:36 Date of Discharge: March 16, 2024 Attending Provider at Admission: Deanne Delgadillo MD Attending Provider at Discharge: Elke Gresham MD Primary Care Provider: Laurel Eagle MD Diagnoses at Discharge Discharge Diagnosis (1) PAD (peripheral artery disease): Status: Acute (2) Type 2 diabetes mellitus with diabetic autonomic (poly)neuropathy: Status: Acute Qualifiers: Diabetes mellitus custodial insulin use: unspecified watermaster insulin use status Qualified Code(s): E11.43 - Type 2 diabetes mellitus with diabetic autonomic (poly)neuropathy (3) Cellulitis of right foot: Status: Acute (4) Chronic osteomyelitis of right foot: Status: Acute (5) Non-pressure chronic ulcer of other part of left foot with necrosis of bone: Status: Acute Reason for Visit Reason for Visit: Right Leg pain Hospital Course Hospital Course Mayra Ascencio is a 58 year old female with past medical history of COPD, carotid artery stenosis, rheumatoid arthritis, diabetes, seizures, UTI, diabetic foot ulcer chronic knee pain, hyperlipidemia, hypertension and other multitude of medical issues presents to the hospital today with complaint of right great toe and RLL cellulitid which has been a recurrent issue for her. She was started on doxycycline suppression recently, however this resulted in a photosensitive rash therefore the use has been discontinued. She was recently treated with IV antibiotics for cellulitis and acute osteomyelitis of the proximal phalanx in November 2023. At that time patient had opted for limb salvage efforts and was opposed to amputation. Wound cultures had grown MRSA therefore she received 6 weeks of IV IV vancomycin. It was decided to proceed with right great toe amputation due to chronic osteomyelitis and nonhealing wound with recurrent cellulitis. IntraOp findings included devitalized bone medial aspect of right hallux interphalangeal joint corresponding to base of the wound. Patient was initially on treatment with IV antibiotics cefepime and vancomycin. After the amputation it was difficult to maintain IV access with the patient and antibiotics were transitioned to cefdinir and Bactrim. Patient has previously tolerated Bactrim without incidence when she had a left prosthetic knee infection. Podiatry service has been taking care of her wound dressings while in the hospital and it was highly recommended that she consider transition to [facility] so that she can continue to get nursing wound care as she had several risk factors such as peripheral artery disease, diabetes mellitus, history of recurrent MRSA infections. Patient has recently become homeless was living at a residential therefore home health was not an option for her. Initially patient was agreeable to transition to SNF, however today she has changed her mind. She states that being in an inpatient facility feels like she is being imprisoned and would like to leave at well. She decided to return to a motel with her son who has recently traveled from [place] to be with her. Her son will be taking care of her dressings and patient states that she will establish at the wound care clinic and follow-up with Dr. Butt on a weekly basis. Discussed with her several times that this plan is not ideal and her wound is likely to regress, however she wishes to leave in spite of counseling on multiple days about the same. There was concern for noted erythema and scab noted over her right knee. There is no sinus tract on exam currently. With her history of recurrent cellulitis involving that right lower extremity, I am concerned that her underlying TKA may have been infected. CT of the knee was pursued which showed some joint effusion. It was attempted to be aspirated under ultrasound guidance, however not enough fluid was encountered on ultrasound to be able to get a synovial fluid aspirate. Patient is being discharged and advised to continue chronic MRSA suppression given frequency of recurrence and hospitalizations from recurrent cellulitis. Since doxycycline is no longer an option, she has been transitioned to Bactrim DS 1 tab twice daily for the same. Discussed with her should she notice increased erythema swelling over the joint, fever or chills she should return to the emergency room right away. Antihypertensive medications were adjusted. Metoprolol has been increased to 25 mg p.o. daily. Imdur 30 mg added at bedtime as patient has a predilection for late evening increase in blood pressure. Cilostazol was discontinued as patient was also noted to be having aspirin and Brilinta on her medication list. Unlikely to benefit from 3 antiplatelet agents without increasing the risk of bleeding. Physical Exam Narrative: General: No acute distress, AO x3 HEENT: PERRLA, pupils bilaterally equal and reactive, pallors not present Chest: Normal vesicular breath sounds, no added sounds, equal good air entry bilaterally CVS: S1-S2 regular, no murmurs, no tachycardia, no gallops, no rubs Abdomen: Soft, nontender, no organomegaly, bowel sounds present Neuro: No focal deficits, no facial deformity, AO x3, power 5/5 in all limbs Discharge Data Studies Completed and Pending Completed Studies During Hospitalization Category Date Time Status CT foot RT w con [id number] Stat Cat Scan 03/07/24 22:[address] knee RT w con [id number] Routine Cat Scan 03/12/24 16:58 Completed MR foot RT wo con* [id number] Routine MRI 03/08/24 09:30 [place] [id number] Routine Ultrasound 03/12/24 00:00 Completed US soft tissue/extremity [id number] Routine Ultrasound 03/13/24 13:00 Completed US venous duplex lower extremity RT [CV venous duplex Ultrasound 03/07/24 20:[address] [place] [id number]] Stat Pending at discharge Category Date Time Status Pathology: Surgical [PTH] Routine Pth 03/09/24 11:21 Received Radiology Impressions Foot CT 03/07/24 22:17 IMPRESSION: 1. Extensive subcutaneous edema. 2. No definite soft tissue abscess. 3. No definite evidence of osteomyelitis. If there is specific concern for osteomyelitis, consider further evaluation with MRI. Foot MRI 03/08/24 09:30 IMPRESSION: 1. Soft tissue ulceration with soft tissue thickening involving the lateral aspect of the first phalanges. Fatty bone marrow signal appears preserved. No definite evidence of osteomyelitis. No drainable fluid collections or abscess in this area. 2. Persistent soft tissue edema with skin thickening. 3. Numerous areas of osteonecrosis similar to the prior studies involving the distal tibia, talus, calcaneus, and tarsal bones. Knee CT 03/12/24 16:58 IMPRESSION: 1. Partially visualized akebk-ss-vsanzibo joint effusion. 2. Evaluation significantly limited by total right knee arthroplasty. No obvious fracture. Soft Tissue Ultrasound 03/13/24 13:00 IMPRESSION: No identifiable joint effusion for which aspiration is possible. Laboratory Results WBC 10.29 10^3/uL (3.29-11.43) 03/15/24 05:30 Corrected WBC Cancelled 03/12/24 05:23 RBC 4.55 10^6/uL (3.85-5.65) 03/15/24 05:30 Hgb 10.40 g/dL (11.27-16.99) L 03/15/24 05:30 Hct 33.7 % (36-47) L 03/15/24 05:30 MCV 74.1 fl (85-98) L 03/15/24 05:30 MCH 22.9 pg (27-33) L 03/15/24 05:30 MCHC 30.9 g/dL (30-55) 03/15/24 05:30 RDW 17.5 % (12.1-15.1) H 03/15/24 05:30 Plt Count 564 10^3/cmm (157-399) H 03/15/24 05:30 MPV 8.8 fL (7.4-10.4) 03/15/24 05:30 Gran % Cancelled 03/12/24 05:23 Neut % (Auto) 42.4 % 03/15/24 05:30 Lymph % (Auto) 39.7 % 03/15/24 05:30 Hamilton % (Auto) 9.4 % 03/15/24 05:30 Eos % (Auto) 5.7 % 03/15/24 05:30 Baso % (Auto) 1.1 % 03/15/24 05:30 Neut # (Auto) 4.35 10^3/uL (1.8-7.7) 03/15/24 05:30 Lymph # (Auto) 4.1 10^3/uL (0.8-4.8) 03/15/24 05:30 Hamilton # (Auto) 1.0 10^3/uL (0.2-0.9) H 03/15/24 05:30 Eos # (Auto) 0.6 10^3/uL (0.0-0.8) 03/15/24 05:30 Baso # (Auto) 0.1 10^3/uL (0.0-0.1) 03/15/24 05:30 Absolute Gran (auto) Cancelled 03/12/24 05:23 Nucleated RBC % (auto) 0 % 03/15/24 05:30 Nucleated RBCs # 0.0 /100WBC 03/15/24 05:30 PT 11.80 SECONDS (12.1-14.9) L 03/08/24 05:57 INR 0.85 (0.8-1.2) 03/08/24 05:57 Sodium 137 mmol/L (136-145) 03/15/24 05:30 Potassium 4.7 mmol/L (3.5-5.1) 03/15/24 05:30 Chloride 104 mmol/L (98-107) 03/15/24 05:30 Carbon Dioxide 24 mmol/L (22-29) 03/15/24 05:30 Anion Gap 13.7 (5-19) 03/15/24 05:30 BUN 10 mg/dL (6-20) 03/15/24 05:30 Creatinine 0.6 mg/dL (0.5-0.9) 03/15/24 05:30 GFR Calculation 103.4 mL/min (90-130) 03/15/24 05:30 Glucose 197 mg/dL (65-115) H 03/15/24 05:30 POC Glucose 253 mg/dL (70-110) H 03/16/24 10:56 Estimat Average Glucose 186 03/07/24 21:31 Hemoglobin A1c 8.1 % (4.0-6.0) H 03/07/24 21:31 Calculated Osmolality 289 mOsm/kg (285-295) 03/15/24 05:30 Lactic Acid 2.0 mmol/L (0.5-2.2) 03/07/24 21:31 Calcium 9.3 mg/dL (8.5-10.5) 03/15/24 05:30 Magnesium 1.7 mg/dL (1.7-2.3) 03/12/24 05:23 Total Bilirubin 0.2 mg/dL (0.15-1.2) 03/15/24 05:30 AST 26 U/L (0-32) 03/15/24 05:30 ALT 18 U/L (0-33) 03/15/24 05:30 Alkaline Phosphatase 87 U/L (35-105) 03/15/24 05:30 C-Reactive Protein 13.6 mg/L (0.0-4.9) H 03/10/24 05:01 C-React Prot High Sens 1.580 mg/dL (0.0-0.3) H 03/12/24 05:23 Total Protein 6.7 g/dL (6.6-8.7) 03/15/24 05:30 Albumin 3.3 g/dL (3.5-5.2) L 03/15/24 05:30 Globulin 3.4 g/dL (1.3-4.6) 03/15/24 05:30 Procalcitonin 0.05 ng/mL (0-0.5) 03/07/24 21:31 Vancomycin Trough 16.2 ug/mL (10-15) H 03/11/24 11:17 Vitals Last Vital Signs Temp 98.0 F 03/16/24 08:00 Pulse 86 03/16/24 12:00 Resp 18 03/16/24 12:31 BP 159/74 03/16/24 12:00 Pulse Ox 95 03/16/24 12:00 O2 Del Method Room Air 03/16/24 12:00 O2 Flow Rate 3 03/13/24 20:00 Discharge Plan Discharge Patient Disposition: Home Condition: Stable Prescriptions: New sulfamethoxazole-trimethoprim 800-160 mg Tablet 1 tab PO BID 30 Days Qty: 60 1RF cefdinir 300 mg Capsule 300 mg PO BID 7 Days Qty: 14 0RF Continued ezetimibe 10 mg tablet 10 mg PO DAILY Qty: 30 4RF (DME) pen needle, diabetic [Comfort EZ Pen [place]] 32 gauge x 5/32 needle See Rx Instructions .Route Qty: 100 2RF Rx Instructions: use 3times a day to inject insulin. (DME) pen needle, diabetic [Comfort EZ Pen [place]] 31 gauge x 5/16 needle See Rx Instructions .Route Qty: 100 6RF Rx Instructions: use daily with levemir Jardiance 25 mg tablet 25 mg PO DAILY Qty: 30 4RF Rx Instructions: 340 b nystatin 100,000 unit/gram cream 1 applic topical BID Qty: 30 0RF (DME) Blood Glucose Test Strip See Rx Instructions .Route Qty: 100 0RF Rx Instructions: tid ac meals atorvastatin 80 mg tablet 80 mg PO QAM Qty: 30 3RF Incruse Ellipta 62.5 mcg/actuation blister with device 1 inh inhalation DAILY Qty: 30 3RF tiotropium bromide [Spiriva with HandiHaler] 18 mcg capsule, w/inhalation device 1 cap inhalation DAILY 30 Days Qty: 30 3RF ondansetron 4 mg tablet,disintegrating 4 mg PO Q6H PRN (Reason: Nausea And Vomiting) Qty: 20 3RF metformin 500 mg tablet extended release 24 hr 100 mg PO BID Qty: 60 4RF losartan 50 mg tablet 50 mg PO DAILY@0800 Qty: 30 4RF hydroxyzine HCl 25 mg tablet 25 mg PO Q6H PRN (Reason: itching) Qty: 20 0RF furosemide 40 mg tablet 40 mg PO DAILY PRN (Reason: Edema) Qty: 30 3RF duloxetine 60 mg capsule,delayed release(DR/EC) 60 mg PO DAILY Qty: 30 4RF cyclobenzaprine 10 mg tablet 10 mg PO TID PRN (Reason: Muscle Spasm) Qty: 90 3RF albuterol sulfate 90 mcg/actuation HFA aerosol inhaler 2 puff inhalation Q6H PRN (Reason: shortness of breath or wheezing) Qty: 8.5 3RF quetiapine 200 mg tablet 200 mg PO BEDTIME Qty: 30 4RF (DME) blood-glucose meter Misc See Rx Instructions .Route Qty: 1 0RF Rx Instructions: dailyAs directed levetiracetam 750 mg tablet 750 mg PO BID Qty: 60 4RF nitroglycerin [Nitrostat] 0.4 mg tablet, sublingual 0.4 mg SUBLINGUAL Q5M PRN (Reason: Chest Pain) Qty: 30 4RF Rx Instructions: do not exceed 3 doses per episode (DME) Blood Glucose Test Strip See Rx Instructions .Route Qty: 50 3RF Rx Instructions: As directed accucheck test strips for accu check machine pantoprazole 40 mg tablet,delayed release (DR/EC) 40 mg PO QAM Qty: 90 3RF Brilinta 90 mg tablet 90 mg PO BID Qty: 180 3RF fluconazole 150 mg tablet 150 mg PO Q3D PRN (Reason: for candidiasis) Qty: 30 1RF aspirin 81 mg tablet,delayed release (DR/EC) 81 mg PO QAM Qty: 30 4RF (DME) lancets Misc See Rx Instructions .Route Qty: 100 0RF Rx Instructions: 1 tid dulaglutide 0.75 mg/0.5 mL pen injector 0.75 mg SUBCUT Q7D Qty: 1 3RF Rx Instructions: ON TUESDAY tramadol 50 mg tablet 50 mg PO Q8H PRN (Reason: pain) Qty: 90 0RF hydrocodone-acetaminophen 5-325 mg tablet 1 tab PO Q8H PRN (Reason: pain) Qty: 7 0RF tobramycin-dexamethasone 0.3-0.1 % drops,suspension 1 drp ophthalmic (eye) DAILY Rx Instructions: RIGHT EYE Levemir FlexPen 100 unit/mL (3 mL) insulin pen 25 unit SUBCUT BID Rx Instructions: 25 UNITS QAM AND 25 UNITS QPM Changed isosorbide mononitrate 60 mg tablet extended release 24 hr 30 mg PO QPM Qty: 90 3RF metoprolol succinate 25 mg tablet extended release 24 hr 25 mg PO QAM Qty: 90 3RF Discontinued cilostazol 50 mg tablet 50 mg PO BID Qty: 180 3RF methylprednisolone [Medrol (Pankaj)] 4 mg tablets,dose pack See Rx Instructions .ROUTE .COMPLEX Qty: 21 0RF Rx Instructions: orally per package directions Discharge Orders: Discharge Order (Routine); Ordered 03/16/24 Ordered By: Elke Gresham Referrals: Luis Butt DPM [Physician] - 03/21/24 10:00 am Laurel Eagle MD [Primary Care Provider] - 03/21/24 10:20 am Patient Instructions: Type 2 Diabetes, Diabetes and Diet, Cellulitis (ED), Toe Amputation (DC), Opioid Safety Activity Restrictions/Additional Instructions: half-way orders from Dr. Butt [facility] podiatry Please perform once daily dressing change at right foot great toe amputation site. Primary dressing Silver alginate followed by gauze, Kerlix and Aaron wrap Nonweightbearing right foot, may heel touch right foot for transfers with postop shoe. Follow-up in podiatry clinic [facility] with Dr. Butt March 21, 2024 10:00 AM. Discharge Attestations Time Spent in Discharge Care*: greater than 30 min Status at Discharge: Cognitive status at discharge: mildly impaired cognition , Behavioral status at discharge: cooperative , Quality Metrics Clinical Quality Measures [ No reported AMI, CVA or VTE this stay] Coding Level of Care Code Acute Code for Chg Fwd Diagnoses PAD (peripheral artery disease) I73.9 Type 2 diabetes mellitus with autonomic neuropathy, unspecified whether watermaster insulin use E11.43 Diabetes mellitus custodial insulin use: unspecified watermaster insulin use status Cellulitis of right foot L03.115 Chronic osteomyelitis of right foot M86.671 Non-pressure chronic ulcer of other part of left foot with necrosis of bone L97.524
== END 2024-03-16 15:09 | disposition home or self-care (01) | DRG 580 ==
LOC: ER 23:29 → MEDSURG 23:36
PROVIDERS: Family Medicine; Internal Medicine; Podiatrist Foot & Ankle Surgery; Admitting Provider Internal Medicine; Emergency Provider Emergency Medicine; PCP Family Medicine; Visit Provider Student in an Organized Health Care Education/Training Program
PROC: 0Y6P0Z0 Detachment at Right 1st Toe, Complete, Open Approach (ICD-10-PCS; principal; 2024-03-09 16:45)
DX: L03.115 Cellulitis of right lower limb (principal); I50.32 Chronic diastolic (congestive) heart failure; M86.671 Other chronic osteomyelitis, right ankle and foot; Z59.01 Sheltered homelessness; E11.42 Type 2 diabetes mellitus with diabetic polyneuropathy; E11.69 Type 2 diabetes mellitus with other specified complication; Z79.4 Long term (current) use of insulin; Z79.84 Long term (current) use of oral hypoglycemic drugs; I73.9 Peripheral vascular disease, unspecified; E11.621 Type 2 diabetes mellitus with foot ulcer; L97.514 Non-pressure chronic ulcer of other part of right foot with necrosis of bone; R21 Rash and other nonspecific skin eruption; Z86.14 Personal history of Methicillin resistant Staphylococcus aureus infection; Z86.73 Personal history of transient ischemic attack (TIA), and cerebral infarction without residual deficits; F17.210 Nicotine dependence, cigarettes, uncomplicated; Z79.82 Long term (current) use of aspirin; D64.9 Anemia, unspecified; E88.09 Other disorders of plasma-protein metabolism, not elsewhere classified; Z96.651 Presence of right artificial knee joint; I11.0 Hypertensive heart disease with heart failure; J44.9 Chronic obstructive pulmonary disease, unspecified; E78.5 Hyperlipidemia, unspecified; I25.10 Atherosclerotic heart disease of native coronary artery without angina pectoris; I65.23 Occlusion and stenosis of bilateral carotid arteries; M06.9 Rheumatoid arthritis, unspecified; R56.9 Unspecified convulsions
CPT/HCPCS: 36415; 36416; 73130; 73630; 73701; 73718; 76882; 76942; 80053; 80202; 81001; 82962; 83036; 83605; 83735; 83880; 84145; 85025; 85610; 85651; 86140; 86141; 87040; 87077; 87086; 87186; 88305; 88311; 93005; 93971; 96365; 96366; 96372; 96374; 96375; 96376; 97161; 97166; 97535; 99285; J0360; J0692; J1100; J1200; J1644; J1815; J1885; J2270; J2405; J3370; J7030; J7050; Q0163; Q9967

== ENCOUNTER 2024-03-20 11:11 | Emergency (ER) | payer MEDICARE, MEDICAID, SELFPAY ==
[2024-03-20 11:33] VITALS: BP 177/117; PULSE 96; RESP 18; TEMP 37; O2SAT 98; BMI 34.9
--- NOTE | 2024-03-20 11:48 | ED_ITS ---
HPI - Extremity Problem General: Chief complaint: Extremity Problem,Nontraumatic Stated complaint: right foot pain, 1 week post toe amputation Time Seen by Provider: 03/20/24 11:38 Source: patient and family Mode of arrival: wheelchair Limitations: no limitations History of Present Illness: Patient is a 58-year-old female here along with her son for concerns of drainage and pain to the site of her right great toe amputation. Patient is status post right great toe amputation through metatarsal phalangeal joint by Dr. Butt. Date of service was 03/09. She has been on her antibiotics that were prescribed to her at discharge including Cefdinir and Bactrim. Son was concerned as he noticed a small amount of drainage from the wound today during dressing changes. Patient also also complained of pain. They have not noticed any significant redness or warmth. No streaking. No fevers. They have follow-up with her surgeon, Dr. Butt scheduled for tomorrow. MD Complaint: extremity pain Onset (ago): day(s) Pain Consistency: constant Location: right and lower extremity Radiation: none Relieving factors: nothing Exacerbating factors: nothing Associated symptoms: Reports no associated symptoms; Deny fever(s) Context: recent surgery/procedure Review of Systems Const: Denies: fever(s), chills or body aches Musc: Reports: extremity pain (site of R great toe amputation); Denies: joint pain or joint swelling Skin/Breast: Reports: other (reporting drainage from wound) [facility] ED PFSH: Medical History Anemia 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 COPD (chronic obstructive pulmonary disease) Hypersensitivity pneumonitis Rheumatoid arthritis Infection of total left knee replacement Right wrist deformity History of stroke Acute exacerbation of chronic obstructive pulmonary disease (COPD) Acute encephalopathy Acute respiratory failure with hypoxia Acute alteration in mental status Sepsis Diabetes Sacral pressure ulcer Cellulitis of gluteal region Seizure disorder Hypoxemia Seizure UTI (urinary tract infection) Chronic, continuous use of opioids Seizures Acute and chronic respiratory failure with hypoxia Pneumonia Pneumonia Acute hypoxemic respiratory failure Stenosis of left internal carotid artery with cerebral infarction Diabetic foot ulcer Right arm weakness Hoarseness of voice Sepsis Numbness and tingling in both hands Urinary tract infection Chest pain Syncope Needs flu shot Carpal tunnel syndrome, right Urinary incontinence Chronic knee pain Abnormal stress test CAD (coronary artery disease) Acute exacerbation of CHF (congestive heart failure) Unstable angina COPD exacerbation Exposure to COVID-19 virus Compression fracture of L2 lumbar vertebra Right hip pain Dyspnea (HFpEF) heart failure with preserved eje ction fraction Candidiasis of vagina History of CVA (cerebrovascular accident) Elevated troponin Pericardial effusion Pressure ulcer Prosthetic joint infection Septic arthritis of knee, left Osteoarthritis of left knee History of hypoglycemic coma Obesity (BMI 35.0-39.9 without comorbidity) Peripheral sensory neuropathy due to type 2 diabetes mellitus Coronary artery disease due to type 2 diabetes mellitus Diabetes type 2, uncontrolled Neuropathy Insomnia Fibromyalgia, primary Hyperlipidemia, mixed CVA (cerebral vascular accident) Dyslipidemia Leukocytosis NSTEMI (non-ST elevated myocardial infarction) Thought to be secondary to plaque rupture. Angiogram July 04 no flow- limiting lesions, or restenosis of previous stent from April 2020 Chronic obstructive pulmonary disease, unspecified Vitamin D deficiency Type 2 diabetes mellitus with diabetic autonomic (poly)neuropathy Essential hypertension Encounter for long-term opiate analgesic use Opioid contract exists Current every day smoker Chronic pain of left knee Low back pain radiating to both legs Intervertebral disc disorder of lumbar region with myelopathy Lumbosacral spondylosis without myelopathy Osteoarthritis of spine at multiple levels Chronic left-sided low back pain Surgical History Status post left knee replacement History of coronary angiogram Angiogram April 2020 with 90% circumflex lesion, drug-eluting stent placed by Dr. Jerome Status post lumbar laminectomy S/P lumbar fusion DR. Shreya ZAYAS IN [place], [place] L4-L5, L5-S1 S/p bilateral carpal tunnel release History of arthroscopic surgery of elbow BILATERAL S/P hysterectomy S/P knee surgery RIGHT Family History Other CAD (coronary artery disease) Cancer Diabetes Social History Smoking and tobacco/nicotine status: current every day tobacco/nicotine user cigarettes Packs smoked per day: 0.5 Years cigarettes smoked: 10 [ Other cigarette details: PER PATIENT REPORT] Alcohol intake: former Substance/Drug Use: never Caregiver/support person: Yes Lives independently: No Housing: [facility] Marital status: Unknown Marital status details: She and son state she is not service: No Current occupational status: unemployed Pets and animals: Yes Do you think of yourself as: Straight/Heterosexual Current gender identity: Female Physical Exam Const: COMMON NORMALS: no acute distress, patient oriented x3, no limitations, alert and well nourished Extremity: GENERAL: Yes normal exam except as noted RIGHT LOWER EXTREMITY: Yes foot & digits OTHER: R great toe amputation site with intact sutures; there is a small amount of non- odorous drainage-slightly purulent; she has forming granulation/eschar tissue present; no significant cellulitis or streaking present Neuro: COMMON NORMALS: patient oriented x3 SENSORIUM/ORIENTATION: Yes alert Skin: NARRATIVE SKIN EXAM: see above Course Consultations: Consultation #1: Dr. Butt-reviewed imaging of wound. Recommend continue daily dressing changes with her silver alginate as well as offloading with her cam boot, minimizing activity, rest, elevate, antibiotics and he will follow-up tomorrow Vital Signs: Vital signs: Vital Signs Temperature 98.6 F 03/20/24 11:33 Pulse Rate 94 03/20/24 12:08 Respiratory Rate 22 H 03/20/24 12:14 Blood Pressure 165/96 03/20/24 12:08 Pulse Oximetry 97 03/20/24 12:14 Oxygen Delivery Me thod Room Air 03/20/24 12:08 MDM - Extremity (Nontraumatic) Medical Decision Making Reviewed case and current wound images with patient's surgeon. He is recommending continued daily dressing changes with her silver alginate as well as offloading with her cam boot, minimizing activity, rest, elevate, antibiotics and he will follow-up tomorrow. Labs unlikely to policy change clerk at this time. XR unremarkable. Patient is requesting pain medications. She states she has had hydrocodone previously and has this listed as an allergy but states her allergy is itching. She states she is comfortable taking Benadryl to help with this but feels like she really needs something for her discomfort. Medical Records I reviewed the patient's medical records. XR interpretation done by ED provider, pending radiology final review Discharge Plan Discharge Patient Disposition: Home Clinical Impression: Status post amputation of great toe Qualifiers: Laterality: right Qualified Code(s): Z89.411 - Acquired absence of right great toe Condition: Stable Prescriptions: New hydrocodone-acetaminophen 5-325 mg tablet 1 tab PO Q6H PRN (Reason: pain) Qty: 14 0RF No Action ezetimibe 10 mg tablet 10 mg PO DAILY Qty: 30 4RF (DME) pen needle, diabetic [Comfort EZ Pen Frederick] 32 gauge x 5/32 needle See Rx Instructions .Route Qty: 100 2RF Rx Instructions: use 3times a day to inject insulin. (DME) pen needle, diabetic [Comfort EZ Pen Frederick] 31 gauge x 5/16 needle See Rx Instructions .Route Qty: 100 6RF Rx Instructions: use daily with levemir Jardiance 25 mg tablet 25 mg PO DAILY Qty: 30 4RF Rx Instructions: 340 b nystatin 100,000 unit/gram cream 1 applic topical BID Qty: 30 0RF (DME) Blood Glucose Test Strip See Rx Instructions .Route Qty: 100 0RF Rx Instructions: tid ac meals atorvastatin 80 mg tablet 80 mg PO QAM Qty: 30 3RF Incruse Ellipta 62.5 mcg/actuation blister with device 1 inh inhalation DAILY Qty: 30 3RF tiotropium bromide [Spiriva with HandiHaler] 18 mcg capsule, w/inhalation device 1 cap inhalation DAILY 30 Days Qty: 30 3RF ondansetron 4 mg tablet,disintegrating 4 mg PO Q6H PRN (Reason: Nausea And Vomiting) Qty: 20 3RF metformin 500 mg tablet extended release 24 hr 100 mg PO BID Qty: 60 4RF losartan 50 mg tablet 50 mg PO DAILY@0800 Qty: 30 4RF hydroxyzine HCl 25 mg tablet 25 mg PO Q6H PRN (Reason: itching) Qty: 20 0RF furosemide 40 mg tablet 40 mg PO DAILY PRN (Reason: Edema) Qty: 30 3RF duloxetine 60 mg capsule,delayed release(DR/EC) 60 mg PO DAILY Qty: 30 4RF cyclobenzaprine 10 mg tablet 10 mg PO TID PRN (Reason: Muscle Spasm) Qty: 90 3RF albuterol sulfate 90 mcg/actuation HFA aerosol inhaler 2 puff inhalation Q6H PRN (Reason: shortness of breath or wheezing) Qty: 8.5 3RF quetiapine 200 mg tablet 200 mg PO BEDTIME Qty: 30 4RF (DME) blood-glucose meter Misc See Rx Instructions .Route Qty: 1 0RF Rx Instructions: dailyAs directed levetiracetam 750 mg tablet 750 mg PO BID Qty: 60 4RF nitroglycerin [Nitrostat] 0.4 mg tablet, sublingual 0.4 mg SUBLINGUAL Q5M PRN (Reason: Chest Pain) Qty: 30 4RF Rx Instructions: do not exceed 3 doses per episode (DME) Blood Glucose Test Strip See Rx Instructions .Route Qty: 50 3RF Rx Instructions: As directed accucheck test strips for accu check machine pantoprazole 40 mg tablet,delayed release (DR/EC) 40 mg PO QAM Qty: 90 3RF Brilinta 90 mg tablet 90 mg PO BID Qty: 180 3RF fluconazole 150 mg tablet 150 mg PO Q3D PRN (Reason: for candidiasis) Qty: 30 1RF (DME) lancets Misc See Rx Instructions .Route Qty: 100 0RF Rx Instructions: 1 tid dulaglutide 0.75 mg/0.5 mL pen injector 0.75 mg SUBCUT Q7D Qty: 1 3RF Rx Instructions: ON TUESDAY tramadol 50 mg tablet 50 mg PO Q8H PRN (Reason: pain) Qty: 90 0RF aspirin 81 mg tablet,delayed release (DR/EC) 81 mg PO QAM Qty: 30 4RF hydrocodone-acetaminophen 5-325 mg tablet 1 tab PO Q8H PRN (Reason: pain) Qty: 7 0RF tobramycin-dexamethasone 0.3-0.1 % drops,suspension 1 drp ophthalmic (eye) DAILY Rx Instructions: RIGHT EYE Levemir FlexPen 100 unit/mL (3 mL) insulin pen 25 unit SUBCUT BID Rx Instructions: 25 UNITS QAM AND 25 UNITS QPM sulfamethoxazole-trimethoprim 800-160 mg Tablet 1 tab PO BID 30 Days Qty: 60 1RF cefdinir 300 mg Capsule 300 mg PO BID 7 Days Qty: 14 0RF isosorbide mononitrate 60 mg tablet extended release 24 hr 30 mg PO QPM Qty: 90 3RF metoprolol succinate 25 mg tablet extended release 24 hr 25 mg PO QAM Qty: 90 3RF Discharge Orders: Discharge ED (Routine); Ordered 03/20/24 Ordered By: Yessenia Valencia Referrals: Laurel Eagle MD [Primary Care Provider] - Patient Instructions: Opioid Safety, Pain Management Activity Restrictions/Additional Instructions: As we discussed Dr. Butt is recommending continue dressing changes with your silver alginate. Continue offloading with your cam boot as well as rest, limit activity, elevation, and continue your antibiotics. He will see you as scheduled at your appointment tomorrow at 10:00am. Coding Level of Care Code ED Alodize Machine Helper for Nahed Alcazar
--- NOTE | 2024-03-20 11:54 | XRR_ITS ---
PROCEDURE INFORMATION: Exam: XR Right Foot Exam date and time: 03/20/2024 12:03 PM Age: 58 years old Clinical indication: Foot; Prior surgery; Surgery date: 3-7 days post-operative; Patient HX: Great toe amputation 1 week ago; PT reports she had her right great toe removed last week. PT presents today d/t pain control and reports drainage from the site x3 days. ; Additional info: Great toe amputation; Reporting drainage/pain TECHNIQUE: Imaging protocol: Radiologic exam of the right foot. Views: 3 or more views. COMPARISON: MR foot RT wo con* [id number] 08/03/2024 10:56 FINDINGS: Bones/joints: Status post amputation of the right great toe. No fracture or destructive bone lesion is identified. There are small calcaneal bone spurs. Soft tissues: No evidence of gas in the soft tissues at the right great toe surgical site. XR/XR foot RT min 3V* [id number] IMPRESSION: Unremarkable right foot status post right great toe amputation. No gas is seen within the soft tissues
[2024-03-20 11:56] VITALS: PULSE 102; O2SAT 97
[2024-03-20 12:08] VITALS: BP 165/96; PULSE 94; RESP 18; O2SAT 99
[2024-03-20 12:14] VITALS: RESP 22; O2SAT 97
[2024-03-20] MEDS: ondansetron 2 mg/ML SDV 2 mL 4 MG IM (12:14)
[2024-03-20] MEDS: morphine 4 mg/mL SDV 1 mL IM (12:14)
[2024-03-20 12:57] VITALS: BP 169/88; PULSE 69; RESP 18; O2SAT 98
== END 2024-03-20 13:05 | disposition home or self-care (01) ==
PROVIDERS: Emergency Provider Physician Assistant; PCP Family Medicine
DX: M79.671 Pain in right foot (principal); Z89.411 Acquired absence of right great toe; Z79.4 Long term (current) use of insulin; Z79.82 Long term (current) use of aspirin; Z79.84 Long term (current) use of oral hypoglycemic drugs; F17.210 Nicotine dependence, cigarettes, uncomplicated; J44.9 Chronic obstructive pulmonary disease, unspecified; Z86.73 Personal history of transient ischemic attack (TIA), and cerebral infarction without residual deficits; I25.10 Atherosclerotic heart disease of native coronary artery without angina pectoris; E11.42 Type 2 diabetes mellitus with diabetic polyneuropathy; E78.2 Mixed hyperlipidemia; I11.0 Hypertensive heart disease with heart failure; I50.9 Heart failure, unspecified; I25.2 Old myocardial infarction
CPT/HCPCS: 73630; 96372; 99284; J2270; J2405

== ENCOUNTER → 2024-03-21 09:48 | Outpatient (BNVA) | payer MEDICARE, MEDICAID, SELFPAY | PROVIDERS: PCP Family Medicine; Visit Provider Podiatrist Foot & Ankle Surgery | DX: E11.43 Type 2 diabetes mellitus with diabetic autonomic (poly)neuropathy (principal); I73.9 Peripheral vascular disease, unspecified; T87.81 Dehiscence of amputation stump; Y83.8 Other surgical procedures as the cause of abnormal reaction of the patient, or of later complication, without mention of misadventure at the time of the procedure; Z79.4 Long term (current) use of insulin; Z79.84 Long term (current) use of oral hypoglycemic drugs | CPT/HCPCS: 29445 ==

== ENCOUNTER → 2024-03-26 06:57 | Outpatient (BNVA) | payer MEDICARE, MEDICAID, SELFPAY | PROVIDERS: PCP Family Medicine; Visit Provider Podiatrist Foot & Ankle Surgery | DX: Z98.890 Other specified postprocedural states (principal); E11.43 Type 2 diabetes mellitus with diabetic autonomic (poly)neuropathy; I73.9 Peripheral vascular disease, unspecified; T87.81 Dehiscence of amputation stump; Z79.4 Long term (current) use of insulin; Z79.84 Long term (current) use of oral hypoglycemic drugs; Y83.8 Other surgical procedures as the cause of abnormal reaction of the patient, or of later complication, without mention of misadventure at the time of the procedure | CPT/HCPCS: 29445 ==

== ENCOUNTER → 2024-04-02 07:05 | Outpatient (BNVA) | payer MEDICARE, MEDICAID, SELFPAY | PROVIDERS: PCP Family Medicine; Visit Provider Podiatrist Foot & Ankle Surgery | DX: E11.43 Type 2 diabetes mellitus with diabetic autonomic (poly)neuropathy (principal); I73.9 Peripheral vascular disease, unspecified; T87.81 Dehiscence of amputation stump; Z98.890 Other specified postprocedural states; Y83.8 Other surgical procedures as the cause of abnormal reaction of the patient, or of later complication, without mention of misadventure at the time of the procedure; Z79.84 Long term (current) use of oral hypoglycemic drugs; Z79.4 Long term (current) use of insulin; Z89.411 Acquired absence of right great toe | CPT/HCPCS: 29445 ==

== ENCOUNTER 2024-04-05 18:28 | Observation (INO) | payer MEDICARE, MEDICAID, SELFPAY ==
[2024-04-05 19:12] VITALS: BP 156/90; PULSE 114; RESP 16; TEMP 37.1; O2SAT 93
[2024-04-05 19:34] LABS: Glucose Point of Care 238 mg/dL (70-110)
--- NOTE | 2024-04-05 20:01 | ED_ITS ---
HPI - Extremity Problem 2 General: Chief complaint: Extremity Problem,Nontraumatic Stated complaint: Left foot/Leg pain Time Seen by Provider: 04/05/24 19:56 History of Present Illness: 58-year-old female with a history of grzegorz betes and diabetic foot infections on her right leg who presents with cellulitis of her left leg today. This been going on for few days. She says very painful. It is red and warm. She says her sugars are high at home. No fevers. Review of Systems 2 Narrative: Constitutional symptoms: Negative except as documented in HPI. Skin symptoms: Negative except as documented in HPI. Eye symptoms: Negative except as documented in HPI. ENMT symptoms: Negative except as documented in HPI. Respiratory symptoms: Negative except as documented in HPI. Cardiovascular symptoms: Negative except as documented in HPI. Gastrointestinal symptoms: Negative except as documented in HPI. Genitourinary symptoms: Negative except as documented in HPI. Musculoskeletal symptoms: Negative except as documented in HPI. Neurologic symptoms: Negative except as documented in HPI. Psychiatric symptoms: Negative except as documented in HPI. Endocrine symptoms: Negative except as documented in HPI. 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 COPD (chronic obstructive pulmonary disease) Hypersensitivity pneumonitis Rheumatoid arthritis Infection of total left knee replacement Right wrist deformity History of stroke Acute exacerbation of chronic obstructive pulmonary disease (COPD) Acute encephalopathy Acute respiratory failure with hypoxia Acute alteration in mental status Sepsis Diabetes Sacral pressure ulcer Cellulitis of gluteal region Seizure disorder Hypoxemia Seizure UTI (urinary tract infection) Chronic, continuous use of opioids Seizures Acute and chronic respiratory failure with hypoxia Pneumonia Pneumonia Acute hypoxemic respiratory failure Stenosis of left internal carotid artery with cerebral infarction Diabetic foot ulcer Right arm weakness Hoarseness of voice Sepsis Numbness and tingling in both hands Urinary tract infection Chest pain Syncope Needs flu shot Carpal tunnel syndrome, right Urinary incontinence Chronic knee pain Abnormal stress test CAD (coronary artery disease) Acute exacerbation of CHF (congestive heart failure) Unstable angina COPD exacerbation Exposure to COVID-19 virus Compression fracture of L2 lumbar vertebra Right hip pain Dyspnea (HFpEF) heart failure with preserved eje ction fraction Candidiasis of vagina History of CVA (cerebrovascular accident) Elevated troponin Pericardial effusion Pressure ulcer Prosthetic joint infection Septic arthritis of knee, left Osteoarthritis of left knee History of hypoglycemic coma Obesity (BMI 35.0-39.9 without comorbidity) Peripheral sensory neuropathy due to type 2 diabetes mellitus Coronary artery disease due to type 2 diabetes mellitus Diabetes type 2, uncontrolled Neuropathy Insomnia Fibromyalgia, primary Hyperlipidemia, mixed CVA (cerebral vascular accident) Dyslipidemia Leukocytosis NSTEMI (non-ST elevated myocardial infarction) Thought to be secondary to plaque rupture. Angiogram July 04 no flow- limiting lesions, or restenosis of previous stent from April 2020 Chronic obstructive pulmonary disease, unspecified Vitamin D deficiency Type 2 diabetes mellitus with diabetic autonomic (poly)neuropathy Essential hypertension Encounter for long-term opiate analgesic use Opioid contract exists Current every day smoker Chronic pain of left knee Low back pain radiating to both legs Intervertebral disc disorder of lumbar region with myelopathy Lumbosacral spondylosis without myelopathy Osteoarthritis of spine at multiple levels Chronic left-sided low back pain Surgical History Status post left knee replacement History of coronary angiogram Angiogram April 2020 with 90% circumflex lesion, drug-eluting stent placed by Dr. Jerome Status post lumbar laminectomy S/P lumbar fusion DR. Shreya ZAYAS IN [place], [place] L4-L5, L5-S1 S/p bilateral carpal tunnel release History of arthroscopic surgery of elbow BILATERAL S/P hysterectomy S/P knee surgery RIGHT Family History Other CAD (coronary artery disease) Cancer Diabetes Social History Smoking and tobacco/nicotine status: current every day tobacco/nicotine user cigarettes Packs smoked per day: 0.5 Years cigarettes smoked: 10 [ Other cigarette details: PER PATIENT REPORT] Alcohol intake: former Substance/Drug Use: never Caregiver/support person: Yes Lives independently: No Housing: [facility] Marital status: Unknown Marital status details: She and son state she is not service: No Current occupational status: unemployed Pets and animals: Yes Do you think of yourself as: Straight/Heterosexual Current gender identity: Female Physical Exam 2 Narrative: EXAM NARRATIVE: General: Alert, no acute distress. Skin: Warm, dry. Left lower extremity has redness over the dorsum of the foot and up the diaz. This is warm and tender to palpation. Edematous. Head: Normocephalic, atraumatic. Neck: Supple, trachea midline. Eye: Extraocular movements are intact. Ears, nose, mouth and throat: mucosa moist. Cardiovascular: Regular, Normal peripheral perfusion. Respiratory: Lungs are clear to auscultation, respirations are non-labored, breath sounds are equal, Symmetrical chest wall expansion. Gastrointestinal: Soft, Nontender, Non distended, Normal bowel sounds. Musculoskeletal: Normal ROM, no deformity. Neurological: Alert and oriented, No focal neurological deficit observed. Psychiatric: Cooperative, appropriate mood & affect. Course 2 Vital Signs: Vital signs: Vital Signs Temperature 98.7 F 04/05/24 19:12 Pulse Rate 108 H 04/05/24 20:16 Respiratory Rate 16 04/05/24 20:16 Blood Pressure 105/74 04/05/24 20:16 Pulse Oximetry 93 04/05/24 20:16 Oxygen Delivery Me thod Room Air 04/05/24 20:16 MDM - Extremity (Nontraumatic) Medical Decision Making Medical decision making: Differential diagnosis including but not limited to and based on the above HPI, review of systems and physical exam: In this patient with diabetes and history of chronic cellulitis in her right foot I have ordered white count, lactate, blood cultures, ESR and CRP to evaluate the severity of the illness. Orders placed to evaluate differential diagnosis based on the above differential, HPI and physical exam Lab Review: Laboratory results were reviewed and interpreted by myself the emergency room physician. Patient has significant leukocytosis. ESR and CRP are elevated as well. No renal failure. Lactate was slightly elevated at 2.5. I reviewed the patient's medical record. Reexamination: Patient remained stable. No increased work of breathing. No altered mental status. No focal motor deficits. No significant change in the cellulitis in her left lower extremity since the first exam. Assessment and plan: Cellulitis Diabetes Possible sepsis -2.5 L normal saline bolus. Fluid volumes based on ideal body weight. -Broad-spectrum antibiotics were administered. Zyvox and meropenem. Patient has a cephalosporin allergy -Sepsis quality measures. -Lactic acid with a reflex was ordered. -Blood cultures were ordered. -Leukocytosis. Mildly elevated lactate. -I discussed the patient with the hospitalist on-call who is admitting the patient. - Discussed findings and plan with patient. Answered any questions. - All laboratory values were reviewed and interpreted personally by myself, the ER physician - All imaging was reviewed and interpreted personally by myself, the ER physician. - Evaluation and treatment of this problem were appropriate in the emergency setting Lab Data 04/05/24 20:18 04/05/24 20:18 Laboratory Results WBC 17.17 10^3/uL (3.29-11.43) H 04/05/24 20:18 RBC 5.29 10^6/uL (3.85-5.65) 04/05/24 20:18 Hgb 12.20 g/dL (11.27-16.99) 04/05/24 20:18 Hct 37.7 % (36-47) 04/05/24 20:18 MCV 71.3 fl (85-98) L 04/05/24 20:18 MCH 23.1 pg (27-33) L 04/05/24 20:18 MCHC 32.4 g/dL (30-55) 04/05/24 20:18 RDW 18.9 % (12.1-15.1) H 04/05/24 20:18 Plt Count 691 10^3/cmm (157-399) H 04/05/24 20:18 MPV 8.7 fL (7.4-10.4) 04/05/24 20:18 Neut % (Auto) 63.1 % 04/05/24 20:18 Lymph % (Auto) 24.8 % 04/05/24 20:18 Vigo % (Auto) 4.9 % 04/05/24 20:18 Eos % (Auto) 5.9 % 04/05/24 20:18 Baso % (Auto) 0.5 % 04/05/24 20:18 Neut # (Auto) 10.83 10^3/uL (1.8-7.7) H 04/05/24 20:18 Lymph # (Auto) 4.3 10^3/uL (0.8-4.8) 04/05/24 20:18 Vigo # (Auto) 0.8 10^3/uL (0.2-0.9) 04/05/24 20:18 Eos # (Auto) 1.0 10^3/uL (0.0-0.8) H 04/05/24 20:18 Baso # (Auto) 0.1 10^3/uL (0.0-0.1) 04/05/24 20:18 Nucleated RBC % (auto) 0 % 04/05/24 20:18 Nucleated RBCs # 0.0 /100WBC 04/05/24 20:18 ESR 64 mm/hr (0-15) H 04/05/24 20:18 Sodium 133 mmol/L (136-145) L 04/05/24 20:18 Potassium 3.9 mmol/L (3.5-5.1) 04/05/24 20:18 Chloride 97 mmol/L (98-107) L 04/05/24 20:18 Carbon Dioxide 22 mmol/L (22-29) 04/05/24 20:18 Anion Gap 17.9 (5-19) 04/05/24 20:18 BUN 9 mg/dL (6-20) 04/05/24 20:18 Creatinine 0.9 mg/dL (0.5-0.9) 04/05/24 20:18 GFR Calculation 64.8 mL/min (90-130) L 04/05/24 20:18 Glucose 225 mg/dL (65-115) H 04/05/24 20:18 POC Glucose 238 mg/dL (70-110) H 04/05/24 19:20 Calculated Osmolality 282 mOsm/kg (285-295) L 04/05/24 20:18 Lactic Acid 2.5 mmol/L (0.5-2.2) H 04/05/24 20:18 Calcium 9.9 mg/dL (8.5-10.5) 04/05/24 20:18 Total Bilirubin 0.2 mg/dL (0.15-1.2) 04/05/24 20:18 AST 13 U/L (0-32) 04/05/24 20:18 ALT 14 U/L (0-33) 04/05/24 20:18 Alkaline Phosphatase 111 U/L (35-105) H 04/05/24 20:18 C-Reactive Protein 36.0 mg/L (0.0-4.9) H 04/05/24 20:18 Total Protein 8.1 g/dL (6.6-8.7) 04/05/24 20:18 Albumin 4.2 g/dL (3.5-5.2) 04/05/24 20:18 Globulin 3.9 g/dL (1.3-4.6) 04/05/24 20:18 No radiology studies performed this visit Discharge Plan Discharge Patient Disposition: Admitted As Inpatient Clinical Impression: Cellulitis Diabetes Qualifiers: Diabetes mellitus type: type 2 Diabetes mellitus technician terminal and repeater insulin use: with fpc use Diabetes mellitus complication status: with skin complications D iabetes mellitus complication detail: with other skin complication Qualified Code(s): E11.628 - Type 2 diabetes mellitus with other skin complications Condition: Stable Coding Level of Care Code ED Conservation Or Heritage Architect for Nahed Alcazar
[2024-04-05 20:16] VITALS: BP 105/74; PULSE 108; RESP 16; O2SAT 93
[2024-04-05 20:34] LABS: Basophils # 0.1 10^3/uL (0.0-0.1); Basophils % 0.5 %; Eosinophils % 5.9 %; Hematocrit 37.7 % (36-47); Lymphocytes # 4.3 10^3/uL (0.8-4.8); Lymphocytes % 24.8 %; Mean Corpuscular HGB Conc 32.4 g/dL (30-55); Mean Corpuscular Hemoglobin 23.1 pg (27-33); Mean Corpuscular Volume 71.3 fl (85-98); Mean Platelet Volume 8.7 fL (7.4-10.4); Monocytes # 0.8 10^3/uL (0.2-0.9); Monocytes % 4.9 %; Neutrophils # 10.83 10^3/uL (1.8-7.7); Neutrophils % 63.1 %; Nucleated Red Blood Cells % 0 %; Platelet Count 691 10^3/cmm (157-399); Red Blood Count 5.29 10^6/uL (3.85-5.65); Red Cell Distribution Width 18.9 % (12.1-15.1); White Blood Count 17.17 10^3/uL (3.29-11.43)
[2024-04-05 20:43] LABS: Lactic Sepsis W/Reflex 2.5 mmol/L (0.5-2.2)
[2024-04-05 20:44] LABS: Alanine Aminotransferase 14 U/L (0-33); Albumin Level 4.2 g/dL (3.5-5.2); Alkaline Phosphatase 111 U/L (35-105); Anion Gap 17.9 (5-19); Aspartate Amino Transferase 13 U/L (0-32); Blood Urea Nitrogen 9 mg/dL (6-20); Calcium 9.9 mg/dL (8.5-10.5); Carbon Dioxide 22 mmol/L (22-29); Chloride 97 mmol/L (98-107); Globulin 3.9 g/dL (1.3-4.6); Glomerular Filtration Rate 64.8 mL/min (90-130); Glucose 225 mg/dL (65-115); Osmolality Calculated 282 mOsm/kg (285-295); Potassium 3.9 mmol/L (3.5-5.1); Sodium 133 mmol/L (136-145); Total Bilirubin 0.2 mg/dL (0.15-1.2); Total Protein 8.1 g/dL (6.6-8.7)
[2024-04-05 20:56] LABS: Erythrocyte Sedimentation Rate 64 mm/hr (0-15)
--- NOTE | 2024-04-05 21:05 | PC.NURSE ---
meds delayed due to needing blood cultures drawn first.
[2024-04-05] MEDS: meropenem 500 MG in sodium chloride 0.9% (plus) 50 ML 100 MG IV (21:16)
[2024-04-05] MEDS: linezolid premix 600 MG/300 ML PREMIX 300 MG IV (21:16)
[2024-04-05] MEDS: sodium chloride 0.9% 1,000 ML 999 ML IV (21:16)
[2024-04-05 21:28] LABS: Slide Review Slide Review Perform
[2024-04-05] MEDS: HYDROmorphone 1 mg/mL INJ 1 mL IVP (21:53)
[2024-04-05] MEDS: ondansetron 2 mg/ML SDV 2 mL 4 MG IVP (21:53)
[2024-04-05 22:00] VITALS: PULSE 103; RESP 16; O2SAT 92
[2024-04-05 22:17] LABS: Reflex Lactate Order REFLEX LACTIC ORDERD
[2024-04-05 22:30] VITALS: BP 111/67; PULSE 102; RESP 16; O2SAT 92
--- NOTE | 2024-04-05 22:36 | P.HP_ITS ---
Providers/Chief Complaint 2 Admitting Physician: Nick Vasquez MD Primary Care Provider: Laurel Eagle MD Chief Complaint: Left foot/Leg pain History of Present Illness Mayra Ascencio is a 58 year old woman with PMH of type 2 diabetes, COPD, CVA , depression who presents for further evaluation of left leg swelling, redness and pain ongoing for the past few days. She denies fever, chills, chest pain, abdominal pain, nausea , vomiting. In the ER, she was noted to have leukocytosis, elevated lactic acid. Review of Systems 2 Narrative: Constitutional symptoms: Negative except as documented in HPI. Skin symptoms: Negative except as documented in HPI. Eye symptoms: Negative except as documented in HPI. ENMT symptoms: Negative except as documented in HPI. Respiratory symptoms: Negative except as documented in HPI. Cardiovascular symptoms: Negative except as documented in HPI. Gastrointestinal symptoms: Negative except as documented in HPI. Genitourinary symptoms: Negative except as documented in HPI. Musculoskeletal symptoms: Negative except as documented in HPI. Neurologic symptoms: Negative except as documented in HPI. Psychiatric symptoms: Negative except as documented in HPI. Endocrine symptoms: Negative except as documented in HPI. Eyes: Denies: photophobia ENMT: Denies: enlarged tonsils Musc: Denies: joint warmth Skin/Breast: Reports: surgical incision Medications/Allergies Home Medications Medication Instructions Recorded Confirmed Last Taken Type blood sugar diagnostic (Blood #50 ea 08/10/23 04/06/24 Unknown Rx Glucose Test strips) nitroglycerin 0.4 mg sublingual 0.4 mg sublingual Q5M PRN Chest 08/15/23 04/06/24 Unknown Rx tablet (Nitrostat) Pain #30 tabs ezetimibe 10 mg tablet 10 mg PO DAILY #30 tabs 10/05/23 04/06/24 Unknown Rx pen needle, diabetic 31 gauge x #100 ea 10/05/23 04/06/24 Unknown Rx 5/16 (Comfort EZ Pen [place]) pen needle, diabetic 32 gauge x #100 ea 10/05/23 04/06/24 Unknown Rx 5/32 (Comfort EZ Pen [place]) lancets #100 ea 11/28/23 04/06/24 Unknown Rx pantoprazole 40 mg tablet,delayed 40 mg PO QAM #90 tabs 01/09/24 04/06/24 Unknown Rx release ticagrelor 90 mg tablet (Brilinta) 90 mg PO BID #180 tabs 01/09/24 04/06/24 Unknown Rx albuterol sulfate 90 mcg/actuation 2 puff inhalation Q6H PRN 01/10/24 04/06/24 Unknown Rx aerosol inhaler shortness of breath or wheezing #8.5 grams atorvastatin 80 mg tablet 80 mg PO QAM #30 tabs 01/10/24 04/06/24 Unknown Rx blood sugar diagnostic (Blood #100 ea 01/10/24 04/06/24 Unknown Rx Glucose Test strips) blood-glucose meter #1 ea 01/10/24 04/06/24 Unknown Rx cyclobenzaprine 10 mg tablet 10 mg PO TID PRN Muscle Spasm #90 01/10/24 04/06/24 Unknown Rx tabs duloxetine 60 mg capsule,delayed 60 mg PO DAILY #30 caps 01/10/24 04/06/24 Unknown Rx release empagliflozin 25 mg tablet 25 mg PO DAILY #30 tabs 01/10/24 04/06/24 Unknown Rx (Jardiance) furosemide 40 mg tablet 40 mg PO DAILY PRN Edema #30 tabs 01/10/24 04/06/24 Unknown Rx hydroxyzine HCl 25 mg tablet 25 mg PO Q6H PRN itching #20 tabs 01/10/24 04/06/24 Unknown Rx losartan 50 mg tablet 50 mg PO DAILY@0800 #30 tabs 01/10/24 04/06/24 Unknown Rx metformin 500 mg tablet,extended 100 mg (0.2 x 500 mg) PO BID #60 01/10/24 04/06/24 Unknown Rx release 24 hr tabs ondansetron 4 mg disintegrating 4 mg PO Q6H PRN Nausea And 01/10/24 04/06/24 Unknown Rx tablet Vomiting #20 tabs quetiapine 200 mg tablet 200 mg PO BEDTIME #30 tabs 01/10/24 04/06/24 Unknown Rx tiotropium bromide 18 mcg capsule 1 cap inhalation DAILY 30 days #30 01/10/24 04/06/24 Unknown Rx with inhalation device (Spiriva inhalations with HandiHaler) umeclidinium 62.5 mcg/actuation 1 inh inhalation DAILY #30 ea 01/10/24 04/06/24 Unknown Rx blister powder for inhalation (Incruse Ellipta) dulaglutide 0.75 mg/0.5 mL 0.75 mg (0.5 mL) SUBCUT Q7D #1 mL 02/09/24 04/06/24 Unknown Rx subcutaneous pen injector tramadol 50 mg tablet 50 mg PO Q8H PRN pain #90 tabs 03/07/24 04/06/24 Unknown Rx insulin detemir U-100 100 unit/mL 25 unit SUBCUT BID 03/08/24 04/06/24 Unknown History (3 mL) subcutaneous pen (Levemir FlexPen) tobramycin 0.3 %-dexamethasone 0.1 1 drp ophthalmic (eye) QID 03/08/24 04/06/24 Unknown History % eye drops,suspension isosorbide mononitrate 60 mg 30 mg (1/2 x 60 mg) PO QPM #90 tabs 03/16/24 04/06/24 Unknown Rx tablet,extended release 24 hr metoprolol succinate 25 mg 25 mg PO QAM #90 tabs 03/16/24 04/06/24 Unknown Rx tablet,extended release 24 hr sulfamethoxazole 800 1 tab PO BID 30 days #60 tabs 03/16/24 04/06/24 Unknown Rx mg-trimethoprim 160 mg tablet aspirin 81 mg tablet,delayed 81 mg PO QAM #30 tabs 03/20/24 04/06/24 Unknown Rx release cilostazol 50 mg tablet 50 mg PO BID 04/06/24 04/06/24 Unknown History levetiracetam 500 mg tablet 500 mg PO BID 04/06/24 04/06/24 Unknown History Allergies Allergy/AdvReac Type Severity Reaction Status Date / Time fentanyl Allergy Unknown ALGY-Difficulty Verified 04/05/24 19:17 Breathing adhesive Allergy Unknown Verified 04/05/24 19:17 cephalexin [From Keflex] Allergy ADR-Itching Verified 04/05/24 19:17 clindamycin Allergy ADR-Itching Verified 04/05/24 19:17 codeine Allergy Unknown Verified 04/05/24 19:17 hydrocodone Allergy Unknown Verified 04/05/24 19:17 latex Allergy ALGY-Swell Verified 04/05/24 19:17 Lip/Tongue/Throat naproxen [From Naprosyn] Allergy Unknown Verified 04/05/24 19:17 nut - unspecified Allergy ALGY-Anaphy Verified 04/05/24 19:17 laxis oxycodone [From Roxicodone] Allergy ADR-Muscle Verified 04/05/24 19:17 Pain Penicillins Allergy Unknown Verified 04/02/24 06:53 tramadol Allergy ADR-Itching Verified 04/02/24 06:53 doxycycline AdvReac Mild photosensit Uncoded 04/02/24 06:53 ivity PFSH Acute 2 PFSH: Medical History Anemia 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 COPD (chronic obstructive pulmonary disease) Hypersensitivity pneumonitis Rheumatoid arthritis Infection of total left knee replacement Right wrist deformity History of stroke Acute exacerbation of chronic obstructive pulmonary disease (COPD) Acute encephalopathy Acute respiratory failure with hypoxia Acute alteration in mental status Sepsis Diabetes Sacral pressure ulcer Cellulitis of gluteal region Seizure disorder Hypoxemia Seizure UTI (urinary tract infection) Chronic, continuous use of opioids Seizures Acute and chronic respiratory failure with hypoxia Pneumonia Pneumonia Acute hypoxemic respiratory failure Stenosis of left internal carotid artery with cerebral infarction Diabetic foot ulcer Right arm weakness Hoarseness of voice Sepsis Numbness and tingling in both hands Urinary tract infection Chest pain Syncope Needs flu shot Carpal tunnel syndrome, right Urinary incontinence Chronic knee pain Abnormal stress test CAD (coronary artery disease) Acute exacerbation of CHF (congestive heart failure) Unstable angina COPD exacerbation Exposure to COVID-19 virus Compression fracture of L2 lumbar vertebra Right hip pain Dyspnea (HFpEF) heart failure with preserved eje ction fraction Candidiasis of vagina History of CVA (cerebrovascular accident) Elevated troponin Pericardial effusion Pressure ulcer Prosthetic joint infection Septic arthritis of knee, left Osteoarthritis of left knee History of hypoglycemic coma Obesity (BMI 35.0-39.9 without comorbidity) Peripheral sensory neuropathy due to type 2 diabetes mellitus Coronary artery disease due to type 2 diabetes mellitus Diabetes type 2, uncontrolled Neuropathy Insomnia Fibromyalgia, primary Hyperlipidemia, mixed CVA (cerebral vascular accident) Dyslipidemia Leukocytosis NSTEMI (non-ST elevated myocardial infarction) Thought to be secondary to plaque rupture. Angiogram July 04 no flow- limiting lesions, or restenosis of previous stent from April 2020 Chronic obstructive pulmonary disease, unspecified Vitamin D deficiency Type 2 diabetes mellitus with diabetic autonomic (poly)neuropathy Essential hypertension Encounter for long-term opiate analgesic use Opioid contract exists Current every day smoker Chronic pain of left knee Low back pain radiating to both legs Intervertebral disc disorder of lumbar region with myelopathy Lumbosacral spondylosis without myelopathy Osteoarthritis of spine at multiple levels Chronic left-sided low back pain Surgical History Status post left knee replacement History of coronary angiogram Angiogram April 2020 with 90% circumflex lesion, drug-eluting stent placed by Dr. Jerome Status post lumbar laminectomy S/P lumbar fusion DR. Shreya ZAYAS IN [place], [place] L4-L5, L5-S1 S/p bilateral carpal tunnel release History of arthroscopic surgery of elbow BILATERAL S/P hysterectomy S/P knee surgery RIGHT Family History Other CAD (coronary artery disease) Cancer Diabetes Social History Smoking and tobacco/nicotine status: current every day tobacco/nicotine user cigarettes Packs smoked per day: 0.5 Years cigarettes smoked: 10 [ Other cigarette details: PER PATIENT REPORT] Alcohol intake: former Substance/Drug Use: never Caregiver/support person: Yes Lives independently: No Housing: [place] Marital status: Unknown Marital status details: She and son state she is not service: No Current occupational status: unemployed Pets and animals: Yes Do you think of yourself as: Straight/Heterosexual Current gender identity: Female Vitals/I&O/Wt Last Vital Signs Temp 98.7 F 04/05/24 19:12 Pulse 103 H 04/05/24 22:00 Resp 16 04/05/24 22:00 BP 105/74 04/05/24 20:16 Pulse Ox 92 04/05/24 22:00 O2 Del Method Room Air 04/05/24 22:00 Physical Exam 2 Const: COMMON NORMALS: no acute distress, patient oriented x3 and alert HENMT: COMMON NORMALS: normocephalic, atraumatic, external ears normal, Normal external nose present, moist oral mucous membranes and oropharynx normal HEAD & SCALP: normocephalic and atraumatic NOSE: Normal external nose present E XTERNAL EAR: Yes external ears normal Eye: COMMON NORMALS: Equal, round and reactive pupils present, EOMs intact bilaterally, conjunctivae normal and no scleral icterus CONJUNCTIVA: Yes conjunctivae normal PUPIL: Yes Equal, round and reactive pupils present Neck/C-Spine: COMMON NORMALS: full ROM, no lymphadenopathy and no JVD Resp: OTHER: Mildly diminished breath sounds, No wheezes or crackles Cardio: COMMON NORMALS: no JVD, regular rate, regular rhythm, S1 normal heart sound present and S2 normal heart sound present RATE: regular rate RHYTHM: regular rhythm HEART SOUNDS: S1 normal heart sound present and S2 normal heart sound present GI: COMMON NORMALS: Normal to inspection, nondistended, normoactive bowel sounds present, Soft to palpation and non-tender PALPATION: Yes Soft to palpation Extremity: NARRATIVE EXTREMITY EXAM: left LE - Erythema , swelling and tenderness of foot and lower leg. Right Leg - In cast Neuro: COMMON NORMALS: patient oriented x3 SENSORIUM/ORIENTATION: Yes alert OTHER: No gross focal deficits Data 04/05/24 20:18 04/05/24 20:18 Micro: Microbiology 04/05/24 20:50 Blood Culture - Preliminary Blood SPECIMEN COLLECTED 04/05/24 20:18 Blood Culture - Preliminary Blood SPECIMEN COLLECTED A&P Assessment and plan (1) Cellulitis: #Left Lower Extremity Cellulitis #Sepsis -She presented with signs of sepsis - tachycardia, leukocytosis, elevated lacic acid -ESR, CRP is elevated -Continue linezolid , meropenem started in the ER -Ct IVF -Check serial lactic acid -Blood cultures ordered -ct supportive care (2) Thrombocytosis, unspecified: -likely reactive -Check peripheral smear, iron studies (3) Type 2 diabetes mellitus with diabetic autonomic (poly)neuropathy: -Consistent carb diet -Glucose checks, sliding scale insulin . 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 insulin use: unspecified adjunct faculty for medical terminology insulin use status Qualified Code(s): E11.43 - Type 2 diabetes mellitus with diabetic autonomic (poly)neuropathy (4) Chronic obstructive pulmonary disease, unspecified: -Patient sounds mildly diminished -Start duonebs , budesonide Qualifiers: COPD type: unspecified COPD Qualified Code(s): J44.9 - Chronic obstructive pulmonary disease, unspecified (5) Dyslipidemia: -Ct statin (6) Essential hypertension: -Hold antihypertensives for tonight , her Bp is on the low side (7) Depression: -Continue antidepressants Attestations 2 Medical Necessity Statement*: Patient's care will cross greater than 2 midnights Coding Level of Care Code Acute Code for Chg Fwd Diagnoses Cellulitis L03.90 Thrombocytosis, unspecified D75.839 Type 2 diabetes mellitus with autonomic neuropathy, unspecified whether senior care insulin use E11.43 Diabetes mellitus senior care insulin use: unspecified senior care insulin use status Chronic obstructive pulmonary disease, unspecified COPD type J44.9 COPD type: unspecified COPD Dyslipidemia E78.5 Essential hypertension I10 Depression F32.A
[2024-04-05 23:30] VITALS: BP 97/80; PULSE 104; RESP 16; O2SAT 94
[2024-04-06] VITALS (14 sets, daily range): BP systolic 145–172; BP diastolic 79–84; PULSE 78–104; RESP 16–20; TEMP 36.3–36.7; O2SAT 90–98; BMI 34.7
[2024-04-06] MEDS: sodium chloride 0.9% 1,000 ML 999 ML IV (00:04)
[2024-04-06 00:11] LABS: Lactic Acid level (Lactate) 2.2 mmol/L (0.5-2.2)
[2024-04-06] MEDS: enoxaparin 40 mg/0.4 mL Syringe SUBCUT (01:17)
[2024-04-06] MEDS: meropenem 1,000 MG in sodium chloride 0.9% (plus) 50 ML 100 MG IV ×2 (01:17→08:59)
[2024-04-06] MEDS: morphine 4 mg/mL SDV 1 mL 1 MG IVP ×3 (01:20→11:51)
[2024-04-06] MEDS: linezolid premix 600 MG/300 ML PREMIX 300 MG IV (01:52)
[2024-04-06 02:33] LABS: LAB Peripheral Smear Sent for Review
[2024-04-06 02:36] LABS: Ferritin 34 ng/mL (15-150); Iron 17 ug/dL (37-145); Percent Saturation 4.1 % (20-50); Total Iron Binding Capacity 408 mcg/dl; Unsaturated Iron Binding 391 ug/dL (112-347)
[2024-04-06] MEDS: ipratropium-albuterol 3 mL Neb INHALATION ×4 (04:27→16:12)
[2024-04-06 06:27] LABS: Glucose Point of Care 196 mg/dL (70-110)
[2024-04-06] MEDS: pantoprazole DR 40 mg Tablet PO (06:29)
[2024-04-06] MEDS: atorvastatin 40 mg Tablet 80 MG PO (06:29)
[2024-04-06] MEDS: aspirin 81 mg EC Tablet PO (06:29)
[2024-04-06] MEDS: budesonide 0.5 mg/2 mL Neb INHALATION (07:58)
--- NOTE | 2024-04-06 08:53 | CTR_ITS ---
PROCEDURE INFORMATION: Exam: CT Left Lower Extremity With Contrast; Lower Leg Exam date and time: 04/06/2024 12:06 PM Age: 58 years old Clinical indication: Cellulitis; Lower leg; Left TECHNIQUE: Imaging protocol: CT of the left lower extremity with intravenous contrast was performed. Exam focused on the lower leg. Radiation optimization: All CT scans at this facility use at least one of these dose optimization techniques: automated exposure control; mA and/or kV adjustment per patient size (includes targeted exams where dose is matched to clinical indication); or iterative reconstruction. Contrast material: [id number]; Contrast volume: 100 ml; Contrast route: INTRAVENOUS (IV); COMPARISON: CT angio abd aorta runof [id number] 02/28/2024 1:11 PM RADIATION DOSE METRICS: Total DLP (mGy-cm): 660.01 FINDINGS: Bones/joints: A total knee arthroplasty is noted that appears intact. Posterior and plantar calcaneal spurs. No evidence of osteomyelitis. No fracture, dislocation or subluxation. Soft tissues: Fatty atrophy of the soleus and medial gastrocnemius muscles. There is mild subcutaneous edema involving the lower leg raising concern for cellulitis. No soft tissue gas is seen. No drainable abscess is identified. CT/CT lower leg LT w con [id number] IMPRESSION: Mild subcutaneous edema involving the lower leg raising concern for cellulitis. No soft tissue gas is seen. No drainable abscess is identified. No evidence of osteomyelitis.
[2024-04-06] MEDS: levETIRAcetam 500 mg Tablet 750 MG PO (08:57)
[2024-04-06] MEDS: duloxetine 60 mg Capsule PO (08:58)
[2024-04-06] MEDS: ezetimibe 10 mg Tablet PO (08:58)
[2024-04-06] MEDS: losartan 50 mg Tablet PO (08:58)
[2024-04-06] MEDS: ticagrelor 90 mg Tablet PO ×2 (08:59→17:10)
[2024-04-06] MEDS: insulin lispro 100 unit/1 mL SUBCUT ×3 (08:59→17:52)
--- NOTE | 2024-04-06 09:02 | PC.CHAP ---
Pastoral Care Encounter/Spiritual Assessment Type of Contact [] Declined caisson worker visit [] Patient/Family/Request visit [] Outpatient visit [] Follow-up visit [] Physician referral [] Code/Alert [x] Routine visit [] Staff referral [] Actively dying [] Patient sleeping [x] Family support [] [] Out of room [] Palliative care [] [] Receiving care in room [] Pre-surgical visit [] Trauma [] Long length of stay [] ICU visit [] Other: Relational/Emotional Strength [x] Patient feels connected with others/family/visitors/staff [] Distress [] Loneliness/isolation [] Abandonment Spirituality of Patient [x] Person of Mary [] Attends Amish of their Mary [x] Believes in Prayer [] Reads Bible or Moravian materials [] There are Spiritual issues to be addressed Motion Study Engineer Interventions [x] Prayer [x] Active listening [x] Non-anxious presence [x] Spiritual/emotional support [] Crisis/trauma care [] Spiritual counseling [] Bereavement support [] Provided bereavement packet [x] Provided Bible/devotional materials [] Provided toy/stuffed animal, coloring book to patient or family member [] Provided Communion [] Anointing/[place]ow [] Salvation [x] Completed spiritual assessment [] Other: Impact on Illness or Injury [] Angry [] Fearful [] Anxious [] Often cries [] Exhaustion [] Unable to work [] Unable to attend holiness [] Unable to walk/stand [] Unable to read [] Unable to drive [] Unable to eat/drink [] Unable to sleep [] Unable to be with family [] Patient intubated [] Other: Summary Time spent with patient 15 min
[2024-04-06] MEDS: HYDROcodone-acetaminophen 5-325 mg Tablet 1 TAB PO (10:07)
--- NOTE | 2024-04-06 10:15 | PC.SOCIAL ---
IMM Update pg 2 of IMM updated and reviewed w/ patient. Copy provided and copy dated, initialed and placed in chart.
[2024-04-06 11:46] LABS: Glucose Point of Care 144 mg/dL (70-110)
[2024-04-06] MEDS: cyclobenzaprine 10 mg Tablet PO (11:52)
[2024-04-06] MEDS: iohexol 350 mg/mL 500 mL Btl (per mL) IV (12:14)
--- NOTE | 2024-04-06 12:39 | P.PN_ITS ---
Subjective 2 Subjective: Pain in her left leg Requesting CT scan Afebrile Nonfocal neuroexam Hyperglycemia Added insulin sliding scale Vitals/I&O/Wt Last Vital Signs Temp 97.5 F L 04/06/24 12:26 Pulse 95 04/06/24 12:26 Resp 18 04/06/24 12:26 BP 145/79 04/06/24 12:26 Pulse Ox 95 04/06/24 12:26 O2 Del Method Room Air 04/06/24 12:26 04/05/24 04/06/24 04/06/24 22:59 06:59 14:59 Intake Total 350 / 350 2350 / 2700 530 / 530 Balance 350 / 350 2350 / 2700 530 / 530 Weight last 48 hrs Weight 94.914 kg Weight 94.665 kg Physical Exam 2 Narrative: Patient is awake alert Hemodynamically stable Pleasant cooperative Right foot covered in the cast Nonfocal neuroexam GCS 15 S1, S2 Data 04/05/24 20:18 04/05/24 20:18 Micro: Microbiology 04/05/24 20:50 Blood Culture - Preliminary Blood SPECIMEN COLLECTED 04/05/24 20:18 Blood Culture - Preliminary Blood SPECIMEN COLLECTED A&P Assessment and plan (1) Depression: (2) Essential hypertension: (3) PAD (peripheral artery disease): (4) Diabetes: (5) Type 2 diabetes mellitus with diabetic autonomic (poly)neuropathy: Qualifiers: Diabetes mellitus group home insulin use: unspecified group home insulin use status Qualified Code(s): E11.43 - Type 2 diabetes mellitus with diabetic autonomic (poly)neuropathy (6) Cellulitis: Plan Concern for cellulitis of left leg Will request CT scan of the left leg as well No fever at this point I will discontinue linezolid patient is taking Keppra I will continue meropenem and vancomycin Further plan will be made after reviewing CT scan of the left For hyperglycemia we will add insulin sliding scale hold off on oral antihyperglycemic agents DVT prophylaxis Lovenox on board Continue antihypertensive regimen Attestations 2 Medical Necessity Statement*: Continue medical management Diagnoses Depression F32.A Essential hypertension I10 PAD (peripheral artery disease) I73.9 Diabetes E11.9 Type 2 diabetes mellitus with autonomic neuropathy, unspecified whether group home insulin use E11.43 Diabetes mellitus termination clerk insulin use: unspecified termination clerk insulin use status Cellulitis L03.90
[2024-04-06 16:34] LABS: Basophils # 0.1 10^3/uL (0.0-0.1); Basophils % 0.9 %; Eosinophils # 0.8 10^3/uL (0.0-0.8); Eosinophils % 8.3 %; Hematocrit 37.2 % (36-47); Lymphocytes # 3.3 10^3/uL (0.8-4.8); Lymphocytes % 36.2 %; Mean Corpuscular HGB Conc 30.4 g/dL (30-55); Mean Corpuscular Hemoglobin 22.9 pg (27-33); Mean Corpuscular Volume 75.5 fl (85-98); Mean Platelet Volume 8.7 fL (7.4-10.4); Monocytes # 0.8 10^3/uL (0.2-0.9); Monocytes % 9.2 %; Neutrophils # 4.12 10^3/uL (1.8-7.7); Neutrophils % 44.7 %; Nucleated Red Blood Cells % 0 %; Platelet Count 588 10^3/cmm (157-399); Red Blood Count 4.93 10^6/uL (3.85-5.65); Red Cell Distribution Width 18.6 % (12.1-15.1); White Blood Count 9.18 10^3/uL (3.29-11.43)
[2024-04-06 16:35] LABS: Glucose Point of Care 195 mg/dL (70-110)
--- NOTE | 2024-04-06 16:37 | PM.DCS ---
Discharge Providers Date of Admission: 04/05/24 22:04 Date of Discharge: April 06, 2024 Attending Provider at Admission: Nick Vasquez MD Attending Provider at Discharge: Darrell Cunha MD Primary Care Provider: Laurel Eagle MD Diagnoses at Discharge Discharge Diagnosis (1) Depression: Status: Acute (2) Essential hypertension: Status: Acute (3) PAD (peripheral artery disease): Status: Acute (4) Diabetes: Status: Acute (5) Type 2 diabetes mellitus with diabetic autonomic (poly)neuropathy: Status: Acute Qualifiers: Diabetes mellitus halfway insulin use: unspecified terminal operator insulin use status Qualified Code(s): E11.43 - Type 2 diabetes mellitus with diabetic autonomic (poly)neuropathy (6) Cellulitis: Status: Acute Reason for Visit Reason for Visit: Left foot/Leg pain Hospital Course Hospital Course 58-year female with medical comorbid conditions such as diabetes, peripheral vascular disease, follows up with Dr. Butt for her after right great toe amputation secondary to diabetic foot infection with chronic osteomyelitis 03/09, present to the hospital for worsening of swelling of left lower extremity, there was concern for sepsis she was given antibiotics, patient remained hemodynamically stable, afebrile, repeat CBC showed improvement of her leukocytosis, erythema and tenderness has improved CT scan of leg has not shown any gas or abscess formation that need surgical intervention, I will discharge patient on doxycycline and Augmentin 10-day regimen. She is agreeable with the plan she is being discharged with stable hemodynamics. Cultures negative to date. Physical Exam Narrative: Awake and alert Redness of left foot has improved No sign of progressive cellulitis Nontender on palpation at the time of evaluation She is hemodynamically stable Discharge Data Studies Completed and Pending Completed Studies During Hospitalization Category Date Time Status CT lower leg LT w con [id number] Routine Cat Scan 04/06/24 08:53 Completed Pending at discharge Category Date Time Status Basic Metabolic Panel AM LABS Lab 04/07/24 04:00 Ordered Blood Culture Stat Lab 04/05/24 20:50 Results Complete Blood Count w/Auto AM LABS Lab 04/07/24 04:00 Ordered Hemoglobin A1C AM LABS Lab 04/07/24 04:00 Ordered Radiology Impressions Lower Extremity CT 04/06/24 08:53 IMPRESSION: Mild subcutaneous edema involving the lower leg raising concern for cellulitis. No soft tissue gas is seen. No drainable abscess is identified. No evidence of osteomyelitis. Laboratory Results WBC 9.18 10^3/uL (3.29-11.43) 04/06/24 16:23 RBC 4.93 10^6/uL (3.85-5.65) 04/06/24 16:23 Hgb 11.30 g/dL (11.27-16.99) 04/06/24 16:23 Hct 37.2 % (36-47) 04/06/24 16:23 MCV 75.5 fl (85-98) L D 04/06/24 16:23 MCH 22.9 pg (27-33) L 04/06/24 16:23 MCHC 30.4 g/dL (30-55) D 04/06/24 16:23 RDW 18.6 % (12.1-15.1) H 04/06/24 16:23 Plt Count 588 10^3/cmm (157-399) H 04/06/24 16:23 MPV 8.7 fL (7.4-10.4) 04/06/24 16:23 Neut % (Auto) 44.7 % 04/06/24 16:23 Lymph % (Auto) 36.2 % 04/06/24 16:23 Wake % (Auto) 9.2 % 04/06/24 16:23 Eos % (Auto) 8.3 % 04/06/24 16:23 Baso % (Auto) 0.9 % 04/06/24 16:23 Neut # (Auto) 4.12 10^3/uL (1.8-7.7) 04/06/24 16:23 Lymph # (Auto) 3.3 10^3/uL (0.8-4.8) 04/06/24 16:23 Wake # (Auto) 0.8 10^3/uL (0.2-0.9) 04/06/24 16:23 Eos # (Auto) 0.8 10^3/uL (0.0-0.8) 04/06/24 16:23 Baso # (Auto) 0.1 10^3/uL (0.0-0.1) 04/06/24 16:23 Nucleated RBC % (auto) 0 % 04/06/24 16:23 Nucleated RBCs # 0.0 /100WBC 04/06/24 16:23 Peripher Smr Path Cons Sent for review 04/05/24 20:18 ESR 64 mm/hr (0-15) H 04/05/24 20:18 Sodium 133 mmol/L (136-145) L 04/05/24 20:18 Potassium 3.9 mmol/L (3.5-5.1) 04/05/24 20:18 Chloride 97 mmol/L (98-107) L 04/05/24 20:18 Carbon Dioxide 22 mmol/L (22-29) 04/05/24 20:18 Anion Gap 17.9 (5-19) 04/05/24 20:18 BUN 9 mg/dL (6-20) 04/05/24 20:18 Creatinine 0.9 mg/dL (0.5-0.9) 04/05/24 20:18 GFR Calculation 64.8 mL/min (90-130) L 04/05/24 20:18 Glucose 225 mg/dL (65-115) H 04/05/24 20:18 POC Glucose 195 mg/dL (70-110) H 04/06/24 16:26 Calculated Osmolality 282 mOsm/kg (285-295) L 04/05/24 20:18 Lactic Acid 2.5 mmol/L (0.5-2.2) H 04/05/24 20:18 Lactic Acid (Sepsis) 2.2 mmol/L (0.5-2.2) 04/05/24 23:51 Calcium 9.9 mg/dL (8.5-10.5) 04/05/24 20:18 Iron 17 ug/dL (37-145) L 04/05/24 20:18 TIBC 408 mcg/dl 04/05/24 20:18 % Saturation 4.1 % (20-50) L 04/05/24 20:18 Unsat Iron Binding 391 ug/dL (112-347) H 04/05/24 20:18 Ferritin 34 ng/mL (15-150) 04/05/24 20:18 Total Bilirubin 0.2 mg/dL (0.15-1.2) 04/05/24 20:18 AST 13 U/L (0-32) 04/05/24 20:18 ALT 14 U/L (0-33) 04/05/24 20:18 Alkaline Phosphatase 111 U/L (35-105) H 04/05/24 20:18 C-Reactive Protein 36.0 mg/L (0.0-4.9) H 04/05/24 20:18 Total Protein 8.1 g/dL (6.6-8.7) 04/05/24 20:18 Albumin 4.2 g/dL (3.5-5.2) 04/05/24 20:18 Globulin 3.9 g/dL (1.3-4.6) 04/05/24 20:18 Vitals Last Vital Signs Temp 97.5 F L 04/06/24 12:26 Pulse 91 04/06/24 16:12 Resp 18 04/06/24 16:12 BP 145/79 04/06/24 12:26 Pulse Ox 96 04/06/24 16:12 O2 Del Method Room Air 04/06/24 16:12 Discharge Plan Discharge Patient Disposition: Home Condition: Stable Prescriptions: New hydrocodone-acetaminophen 5-325 mg tablet 1 tab PO DAILY PRN (Reason: pain) Qty: 7 0RF cefpodoxime 200 mg tablet 200 mg PO BID Qty: 14 0RF Rx Instructions: must administer with a meal/food doxycycline hyclate 100 mg tablet,delayed release (DR/EC) 50 mg PO BID Qty: 14 0RF Continued ezetimibe 10 mg tablet 10 mg PO DAILY Qty: 30 4RF (DME) pen needle, diabetic [Comfort EZ Pen [place]] 32 gauge x 5/32 needle See Rx Instructions .Route Qty: 100 2RF Rx Instructions: use 3times a day to inject insulin. (DME) pen needle, diabetic [Comfort EZ Pen [place]] 31 gauge x 5/16 needle See Rx Instructions .Route Qty: 100 6RF Rx Instructions: use daily with levemir Jardiance 25 mg tablet 25 mg PO DAILY Qty: 30 4RF Rx Instructions: 340 b (DME) Blood Glucose Test Strip See Rx Instructions .Route Qty: 100 0RF Rx Instructions: tid ac meals atorvastatin 80 mg tablet 80 mg PO QAM Qty: 30 3RF Incruse Ellipta 62.5 mcg/actuation blister with device 1 inh inhalation DAILY Qty: 30 3RF tiotropium bromide [Spiriva with HandiHaler] 18 mcg capsule, w/inhalation device 1 cap inhalation DAILY 30 Days Qty: 30 3RF ondansetron 4 mg tablet,disintegrating 4 mg PO Q6H PRN (Reason: Nausea And Vomiting) Qty: 20 3RF metformin 500 mg tablet extended release 24 hr 100 mg PO BID Qty: 60 4RF losartan 50 mg tablet 50 mg PO DAILY@0800 Qty: 30 4RF hydroxyzine HCl 25 mg tablet 25 mg PO Q6H PRN (Reason: itching) Qty: 20 0RF furosemide 40 mg tablet 40 mg PO DAILY PRN (Reason: Edema) Qty: 30 3RF duloxetine 60 mg capsule,delayed release(DR/EC) 60 mg PO DAILY Qty: 30 4RF cyclobenzaprine 10 mg tablet 10 mg PO TID PRN (Reason: Muscle Spasm) Qty: 90 3RF albuterol sulfate 90 mcg/actuation HFA aerosol inhaler 2 puff inhalation Q6H PRN (Reason: shortness of breath or wheezing) Qty: 8.5 3RF quetiapine 200 mg tablet 200 mg PO BEDTIME Qty: 30 4RF (DME) blood-glucose meter Misc See Rx Instructions .Route Qty: 1 0RF Rx Instructions: dailyAs directed nitroglycerin [Nitrostat] 0.4 mg tablet, sublingual 0.4 mg SUBLINGUAL Q5M PRN (Reason: Chest Pain) Qty: 30 4RF Rx Instructions: do not exceed 3 doses per episode (DME) Blood Glucose Test Strip See Rx Instructions .Route Qty: 50 3RF Rx Instructions: As directed accucheck test strips for accu check machine pantoprazole 40 mg tablet,delayed release (DR/EC) 40 mg PO QAM Qty: 90 3RF Brilinta 90 mg tablet 90 mg PO BID Qty: 180 3RF (DME) lancets Misc See Rx Instructions .Route Qty: 100 0RF Rx Instructions: 1 tid dulaglutide 0.75 mg/0.5 mL pen injector 0.75 mg SUBCUT Q7D Qty: 1 3RF Rx Instructions: ON TUESDAY tramadol 50 mg tablet 50 mg PO Q8H PRN (Reason: pain) Qty: 90 0RF aspirin 81 mg tablet,delayed release (DR/EC) 81 mg PO QAM Qty: 30 4RF tobramycin-dexamethasone 0.3-0.1 % drops,suspension 1 drp ophthalmic (eye) QID Rx Instructions: RIGHT EYE Levemir FlexPen 100 unit/mL (3 mL) insulin pen 25 unit SUBCUT BID Rx Instructions: 25 UNITS QAM AND 25 UNITS QPM sulfamethoxazole-trimethoprim 800-160 mg Tablet 1 tab PO BID 30 Days Qty: 60 1RF isosorbide mononitrate 60 mg tablet extended release 24 hr 30 mg PO QPM Qty: 90 3RF metoprolol succinate 25 mg tablet extended release 24 hr 25 mg PO QAM Qty: 90 3RF cilostazol 50 mg Tablet 50 mg PO BID levetiracetam 500 mg Tablet 500 mg PO BID Discharge Orders: Discharge Order (Routine); Ordered 04/06/24 Ordered By: Darrell Cunha Referrals: Laurel Eagle MD [Primary Care Provider] - (We have notified your physician's clinic of the need for a follow-up appointment to be scheduled. If you have not heard from them within the next 2 business days, please call them directly. ) Discharge Diet: Diabetic Discharge Activity: Increase activity as tolerated Patient Instructions: Opioid Safety Discharge Attestations Time Spent in Discharge Care*: greater than 30 min Status at Discharge: Cognitive status at discharge: mildly impaired cognition, Behavioral status at discharge: cooperative, Quality Metrics Clinical Quality Measures [ No reported AMI, CVA or VTE this stay] Coding Level of Care Code Acute Code for Chg Fwd Diagnoses Depression F32.A Essential hypertension I10 PAD (peripheral artery disease) I73.9 Diabetes E11.9 Type 2 diabetes mellitus with autonomic neuropathy, unspecified whether halfway insulin use E11.43 Diabetes mellitus halfway insulin use: unspecified terminal operator insulin use status Cellulitis L03.90
[2024-04-06] MEDS: isosorbide mononitrate ER 60 mg Tablet 30 MG PO (17:08)
== END 2024-04-06 18:15 | disposition home or self-care (01) ==
LOC: ER 21:57 → MEDSURG 04-06 05:45 → ER IP 04-18 12:32
PROVIDERS: Admitting Provider Student in an Organized Health Care Education/Training Program; Emergency Provider Emergency Medicine; PCP Family Medicine; Visit Provider Internal Medicine
DX: L03.90 Cellulitis, unspecified (principal); E11.43 Type 2 diabetes mellitus with diabetic autonomic (poly)neuropathy; F32.A Depression, unspecified; E11.621 Type 2 diabetes mellitus with foot ulcer; J44.9 Chronic obstructive pulmonary disease, unspecified; I25.10 Atherosclerotic heart disease of native coronary artery without angina pectoris; I11.0 Hypertensive heart disease with heart failure; I50.30 Unspecified diastolic (congestive) heart failure; Z86.73 Personal history of transient ischemic attack (TIA), and cerebral infarction without residual deficits; M79.7 Fibromyalgia; I25.2 Old myocardial infarction; F17.210 Nicotine dependence, cigarettes, uncomplicated
CPT/HCPCS: 12345; 29445; 36415; 36416; 73701; 80053; 80503; 82728; 82962; 83540; 83550; 83605; 85025; 85651; 86140; 87040; 94640; 96365; 96367; 96372; 96375; 99285; G0378; J1170; J1650; J1815; J2020; J2185; J2270; J2405; J7030; J7626; Q9967

== ENCOUNTER 2024-04-06 22:43 | Emergency (ER) | payer MEDICARE, MEDICAID, SELFPAY ==
[2024-04-06 22:45] VITALS: PULSE 107; RESP 18; TEMP 36.9; O2SAT 98
[2024-04-07 00:45] VITALS: BP 141/83; PULSE 108; O2SAT 94
[2024-04-07 01:15] VITALS: BP 169/81; PULSE 98; O2SAT 96
--- NOTE | 2024-04-07 01:34 | W.ED.GENADLT ---
HPI - General Adult General: Chief complaint: General Medical Stated complaint: Low blood Sugar Time Seen by Provider: 04/07/24 01:16 History of Present Illness: The patient presents with a chief complaint of cellulitis in their leg, experiencing pain from the affected area down. They report that the leg is red and welsh. The patient was previously admitted to the hospital at 2 o'clock in the morning and discharged at 5 o'clock in the evening on the same day. They state that the leg's appearance has not changed since their previous visit to the emergency department and hospital. The patient mentions that they were prescribed antibiotics for the cellulitis, but the pharmacy they were sent to is closed until Tuesday. They express frustration with their previous hospital stay, feeling that it was too short and that they needed a longer stay for their condition. 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 COPD (chronic obstructive pulmonary disease) Hypersensitivity pneumonitis Rheumatoid arthritis Infection of total left knee replacement Right wrist deformity History of stroke Acute exacerbation of chronic obstructive pulmonary disease (COPD) Acute encephalopathy Acute respiratory failure with hypoxia Acute alteration in mental status Sepsis Diabetes Sacral pressure ulcer Cellulitis of gluteal region Seizure disorder Hypoxemia Seizure UTI (urinary tract infection) Chronic, continuous use of opioids Seizures Acute and chronic respiratory failure with hypoxia Pneumonia Pneumonia Acute hypoxemic respiratory failure Stenosis of left internal carotid artery with cerebral infarction Diabetic foot ulcer Right arm weakness Hoarseness of voice Sepsis Numbness and tingling in both hands Urinary tract infection Chest pain Syncope Needs flu shot Carpal tunnel syndrome, right Urinary incontinence Chronic knee pain Abnormal stress test CAD (coronary artery disease) Acute exacerbation of CHF (congestive heart failure) Unstable angina COPD exacerbation Exposure to COVID-19 virus Compression fracture of L2 lumbar vertebra Right hip pain Dyspnea (HFpEF) heart failure with preserved ejection fraction Candidiasis of vagina History of CVA (cerebrovascular accident) Elevated troponin Pericardial effusion Pressure ulcer Prosthetic joint infection Septic arthritis of knee, left Osteoarthritis of left knee History of hypoglycemic coma Obesity (BMI 35.0-39.9 without comorbidity) Peripheral sensory neuropathy due to type 2 diabetes mellitus Coronary artery disease due to type 2 diabetes mellitus Diabetes type 2, uncontrolled Neuropathy Insomnia Fibromyalgia, primary Hyperlipidemia, mixed CVA (cerebral vascular accident) Dyslipidemia Leukocytosis NSTEMI (non-ST elevated myocardial infarction) Thought to be secondary to plaque rupture. Angiogram July 04 no flow-limiting lesions, or restenosis of previous stent from April 2020 Chronic obstructive pulmonary disease, unspecified Vitamin D deficiency Type 2 diabetes mellitus with diabetic autonomic (poly)neuropathy Essential hypertension Encounter for long-term opiate analgesic use Opioid contract exists Current every day smoker Chronic pain of left knee Low back pain radiating to both legs Intervertebral disc disorder of lumbar region with myelopathy Lumbosacral spondylosis without myelopathy Osteoarthritis of spine at multiple levels Chronic left-sided low back pain Surgical History Status post left knee replacement History of coronary angiogram Angiogram April 2020 with 90% circumflex lesion, drug-eluting stent placed by Dr. Jerome Status post lumbar laminectomy S/P lumbar fusion DR. Shreya ZAYAS IN [place], [place] L4-L5, L5-S1 S/p bilateral carpal tunnel release History of arthroscopic surgery of elbow BILATERAL S/P hysterectomy S/P knee surgery RIGHT Family History Other CAD (coronary artery disease) Cancer Diabetes Social History Smoking and tobacco/nicotine status: current every day tobacco/nicotine user cigarettes Packs smoked per day: 0.5 Years cigarettes smoked: 10 [ Other cigarette details: PER PATIENT REPORT] Alcohol intake: former Substance/Drug Use: never Caregiver/support person: Yes Lives independently: No Housing: Long-Term Marital status: Unknown Marital status details: She and son state she is not service: No Current occupational status: unemployed Pets and animals: Yes Do you think of yourself as: Straight/Heterosexual Current gender identity: Female Physical Exam Narrative: EXAM NARRATIVE: General: Alert, no acute distress. Skin: Warm, dry. Left lower extremity has redness over the dorsum of the foot and up the diaz. This is warm and tender to palpation. Edematous. Head: Normocephalic, atraumatic. Neck: Supple, trachea midline. Eye: Extraocular movements are intact. Ears, nose, mouth and throat: mucosa moist. Cardiovascular: Regular, Normal peripheral perfusion. Respiratory: Lungs are clear to auscultation, respirations are non-labored, breath sounds are equal, Symmetrical chest wall expansion. Gastrointestinal: Soft, Nontender, Non distended, Normal bowel sounds. Musculoskeletal: Normal ROM, no deformity. Neurological: Alert and oriented, No focal neurological deficit observed. Psychiatric: Cooperative, appropriate mood & affect. Course Vital Signs: Vital signs: Vital Signs Temperature 98.5 F 04/06/24 22:45 Pulse Rate 107 H 04/06/24 22:45 Respiratory Rate 18 04/06/24 22:45 Pulse Oximetry 98 04/06/24 22:45 Oxygen Delivery Me thod Room Air 04/06/24 22:45 MDM - General Adult Medical Decision Making 58-year-old female presents to the emergency department for ongoing left lower extremity pain and redness. She had been discharged from the hospital just several hours prior to arriving the emergency department. She states that she is unable to get her antibiotics. She is continue to have pain and redness and is concerned that she was out of the hospital long enough. On physical exam there are signs of decreased swelling in that extremity. Explained to the patient that it can take anywhere from 24 to 40 hours for the antibiotics to have a significant effect on her infection. She denies any new symptoms. Her antibiotics were sent to a different pharmacy so she can pick them up in the morning. She received 1 dose of her antibiotics tonight to continue with the therapeutic dose. Patient was discharged in stable condition. No radiology studies performed this visit Discharge Plan Discharge Patient Disposition: Home Clinical Impression: Cellulitis Qualifiers: Site of cellulitis: extremity Site of cellulitis of extremity: lower extremity Laterality: left Qualified Code(s): L03.116 - Cellulitis of left lower limb Condition: Stable Prescriptions: New cefpodoxime 200 mg tablet 200 mg PO BID Qty: 20 0RF Rx Instructions: must administer with a meal/food doxycycline hyclate 100 mg capsule 100 mg PO BID 10 Days Qty: 20 0RF No Action ezetimibe 10 mg tablet 10 mg PO DAILY Qty: 30 4RF (DME) pen needle, diabetic [Comfort EZ Pen [place]] 32 gauge x 5/32 needle See Rx Instructions .Route Qty: 100 2RF Rx Instructions: use 3times a day to inject insulin. (DME) pen needle, diabetic [Comfort EZ Pen [place]] 31 gauge x 5/16 needle See Rx Instructions .Route Qty: 100 6RF Rx Instructions: use daily with levemir Jardiance 25 mg tablet 25 mg PO DAILY Qty: 30 4RF Rx Instructions: 340 b (DME) Blood Glucose Test Strip See Rx Instructions .Route Qty: 100 0RF Rx Instructions: tid ac meals atorvastatin 80 mg tablet 80 mg PO QAM Qty: 30 3RF Incruse Ellipta 62.5 mcg/actuation blister with device 1 inh inhalation DAILY Qty: 30 3RF tiotropium bromide [Spiriva with HandiHaler] 18 mcg capsule, w/inhalation device 1 cap inhalation DAILY 30 Days Qty: 30 3RF ondansetron 4 mg tablet,disintegrating 4 mg PO Q6H PRN (Reason: Nausea And Vomiting) Qty: 20 3RF metformin 500 mg tablet extended release 24 hr 100 mg PO BID Qty: 60 4RF losartan 50 mg tablet 50 mg PO DAILY@0800 Qty: 30 4RF hydroxyzine HCl 25 mg tablet 25 mg PO Q6H PRN (Reason: itching) Qty: 20 0RF furosemide 40 mg tablet 40 mg PO DAILY PRN (Reason: Edema) Qty: 30 3RF duloxetine 60 mg capsule,delayed release(DR/EC) 60 mg PO DAILY Qty: 30 4RF cyclobenzaprine 10 mg tablet 10 mg PO TID PRN (Reason: Muscle Spasm) Qty: 90 3RF albuterol sulfate 90 mcg/actuation HFA aerosol inhaler 2 puff inhalation Q6H PRN (Reason: shortness of breath or wheezing) Qty: 8.5 3RF quetiapine 200 mg tablet 200 mg PO BEDTIME Qty: 30 4RF (DME) blood-glucose meter Misc See Rx Instructions .Route Qty: 1 0RF Rx Instructions: dailyAs directed nitroglycerin [Nitrostat] 0.4 mg tablet, sublingual 0.4 mg SUBLINGUAL Q5M PRN (Reason: Chest Pain) Qty: 30 4RF Rx Instructions: do not exceed 3 doses per episode (DME) Blood Glucose Test Strip See Rx Instructions .Route Qty: 50 3RF Rx Instructions: As directed accucheck test strips for accu check machine pantoprazole 40 mg tablet,delayed release (DR/EC) 40 mg PO QAM Qty: 90 3RF Brilinta 90 mg tablet 90 mg PO BID Qty: 180 3RF (DME) lancets Misc See Rx Instructions .Route Qty: 100 0RF Rx Instructions: 1 tid dulaglutide 0.75 mg/0.5 mL pen injector 0.75 mg SUBCUT Q7D Qty: 1 3RF Rx Instructions: ON TUESDAY tramadol 50 mg tablet 50 mg PO Q8H PRN (Reason: pain) Qty: 90 0RF aspirin 81 mg tablet,delayed release (DR/EC) 81 mg PO QAM Qty: 30 4RF tobramycin-dexamethasone 0.3-0.1 % drops,suspension 1 drp ophthalmic (eye) QID Rx Instructions: RIGHT EYE Levemir FlexPen 100 unit/mL (3 mL) insulin pen 25 unit SUBCUT BID Rx Instructions: 25 UNITS QAM AND 25 UNITS QPM sulfamethoxazole-trimethoprim 800-160 mg Tablet 1 tab PO BID 30 Days Qty: 60 1RF isosorbide mononitrate 60 mg tablet extended release 24 hr 30 mg PO QPM Qty: 90 3RF metoprolol succinate 25 mg tablet extended release 24 hr 25 mg PO QAM Qty: 90 3RF cilostazol 50 mg Tablet 50 mg PO BID levetiracetam 500 mg Tablet 500 mg PO BID doxycycline hyclate 100 mg tablet,delayed release (DR/EC) 50 mg PO BID Qty: 14 0RF cefpodoxime 200 mg tablet 200 mg PO BID Qty: 14 0RF Rx Instructions: must administer with a meal/food hydrocodone-acetaminophen 5-325 mg tablet 1 tab PO DAILY PRN (Reason: pain) Qty: 7 0RF Discharge Orders: Discharge ED (Routine); Ordered 04/07/24 Ordered By: David Law Referrals: Laurel Eagle MD [Primary Care Provider] - Discharge Diet: Advance as tolerated Discharge Activity: Resume usual activity Patient Instructions: Opioid Safety, Pain Management Activity Restrictions/Additional Instructions: Return to the emergency department with any new or worsening symptoms Coding Level of Care Code ED Strap Cutter for Nahed Alcazar
== END 2024-04-07 02:13 | disposition home or self-care (01) ==
PROVIDERS: Emergency Provider General Practice; PCP Family Medicine
DX: L03.116 Cellulitis of left lower limb (principal); Z79.82 Long term (current) use of aspirin; Z79.4 Long term (current) use of insulin; Z79.84 Long term (current) use of oral hypoglycemic drugs; F17.210 Nicotine dependence, cigarettes, uncomplicated; Z96.652 Presence of left artificial knee joint; J44.9 Chronic obstructive pulmonary disease, unspecified; Z86.73 Personal history of transient ischemic attack (TIA), and cerebral infarction without residual deficits; E11.42 Type 2 diabetes mellitus with diabetic polyneuropathy; I11.0 Hypertensive heart disease with heart failure; I50.9 Heart failure, unspecified; I25.10 Atherosclerotic heart disease of native coronary artery without angina pectoris; E78.2 Mixed hyperlipidemia; I25.2 Old myocardial infarction
CPT/HCPCS: 99283

== ENCOUNTER → 2024-04-10 07:17 | Outpatient (BNVA) | payer MEDICARE, MEDICAID, SELFPAY | PROVIDERS: PCP Family Medicine; Visit Provider Podiatrist Foot & Ankle Surgery | DX: E11.43 Type 2 diabetes mellitus with diabetic autonomic (poly)neuropathy (principal); I73.9 Peripheral vascular disease, unspecified; T87.81 Dehiscence of amputation stump; Z98.890 Other specified postprocedural states; L97.512 Non-pressure chronic ulcer of other part of right foot with fat layer exposed; E11.621 Type 2 diabetes mellitus with foot ulcer; Z79.4 Long term (current) use of insulin; Z79.84 Long term (current) use of oral hypoglycemic drugs | CPT/HCPCS: 29445 ==

== ENCOUNTER → 2024-04-13 13:35 | Outpatient (BNVA) | payer MEDICARE, MEDICAID, SELFPAY | PROVIDERS: PCP Family Medicine; Visit Provider Podiatrist Foot & Ankle Surgery | DX: E11.621 Type 2 diabetes mellitus with foot ulcer (principal); L97.512 Non-pressure chronic ulcer of other part of right foot with fat layer exposed; Z51.89 Encounter for other specified aftercare; E11.43 Type 2 diabetes mellitus with diabetic autonomic (poly)neuropathy; I73.9 Peripheral vascular disease, unspecified; T87.81 Dehiscence of amputation stump; Z98.890 Other specified postprocedural states | CPT/HCPCS: 29445 ==

== ENCOUNTER → 2024-04-24 07:45 | Outpatient (BNVA) | payer MEDICARE, MEDICAID, SELFPAY | PROVIDERS: PCP Family Medicine; Visit Provider Podiatrist Foot & Ankle Surgery | DX: Z51.89 Encounter for other specified aftercare (principal); E11.43 Type 2 diabetes mellitus with diabetic autonomic (poly)neuropathy; I73.9 Peripheral vascular disease, unspecified; T87.81 Dehiscence of amputation stump; L97.512 Non-pressure chronic ulcer of other part of right foot with fat layer exposed; Z98.890 Other specified postprocedural states; Y83.8 Other surgical procedures as the cause of abnormal reaction of the patient, or of later complication, without mention of misadventure at the time of the procedure; E11.621 Type 2 diabetes mellitus with foot ulcer; Z79.4 Long term (current) use of insulin; Z79.84 Long term (current) use of oral hypoglycemic drugs | CPT/HCPCS: 99213 ==

== ENCOUNTER → 2024-07-19 12:57 | Outpatient (BNVA) | payer MEDICARE, MEDICAID, SELFPAY | PROVIDERS: PCP Family Medicine; Visit Provider Podiatrist Foot & Ankle Surgery | DX: M79.671 Pain in right foot (principal); L97.523 Non-pressure chronic ulcer of other part of left foot with necrosis of muscle; E11.621 Type 2 diabetes mellitus with foot ulcer; L97.524 Non-pressure chronic ulcer of other part of left foot with necrosis of bone; E11.43 Type 2 diabetes mellitus with diabetic autonomic (poly)neuropathy; I73.9 Peripheral vascular disease, unspecified; L97.513 Non-pressure chronic ulcer of other part of right foot with necrosis of muscle; Z79.4 Long term (current) use of insulin; Z79.84 Long term (current) use of oral hypoglycemic drugs | CPT/HCPCS: 11044; 73630; 87070; 87075; 87186; 87205 ==

== ENCOUNTER 2024-07-23 13:11 | Inpatient (IN) | payer MEDICARE, MEDICAID, SELFPAY ==
[2024-07-23] VITALS (9 sets, daily range): BP systolic 137–141; BP diastolic 75–89; PULSE 91–99; RESP 15–22; TEMP 36.7–36.8; O2SAT 94–96; BMI 31.2; BMI 33.2
--- NOTE | 2024-07-23 15:00 | XRR_ITS ---
PROCEDURE INFORMATION: Exam: XR Left Foot Exam date and time: 07/23/2024 3:19 PM Age: 59 years old Clinical indication: Other: Infection TECHNIQUE: Imaging protocol: Radiologic exam of the left foot. Views: 3 or more views. COMPARISON: CR XR foot LT min 3V* [id number] 07/19/2024 1:38 PM FINDINGS: Bones/joints: Calcaneal spurring. Mild degenerative changes 1st MTP joint. Mild degenerative changes at the IP joints. No lytic or sclerotic bone lesion. Soft tissues: Normal. XR/XR foot LT min 3V* [id number] IMPRESSION: No acute findings.
--- NOTE | 2024-07-23 16:08 | W.ED.EXTPRO ---
HPI - Extremity Problem General: Chief complaint: Extremity Problem,Nontraumatic Stated complaint: SENT FROM [facility] Time Seen by Provider: 07/23/24 15:39 History of Present Illness: 59-year-old female with a history of poorly controlled diabetes and multiple diabetic foot infections who presents emergency room today with worsening foot pain and osteomyelitis. She was not able to obtain the linezolid that had been ordered for her as an outpatient. She says pain is worsening. No systemic fevers. Of primary concern today is her left great toe which has an opening and now has increased redness and drainage and pain. Related Data Home Medications Medication Instructions Recorded Confirmed tobramycin 0.3 %-dexamethasone 0.1 1 drp ophthalmic (eye) QID 03/08/24 07/23/24 % eye drops,suspension cilostazol 50 mg tablet 50 mg PO BID 04/06/24 07/23/24 levetiracetam 500 mg tablet 500 mg PO BID 04/06/24 07/23/24 Previous Rx's Medication Instructions Recorded blood sugar diagnostic (Blood #50 ea 08/10/23 Glucose Test strips) lancets #100 ea 11/28/23 pantoprazole 40 mg tablet,delayed 40 mg PO QAM #90 tabs 01/09/24 release albuterol sulfate 90 mcg/actuation 2 puff inhalation Q6H PRN 01/10/24 aerosol inhaler shortness of breath or wheezing #8.5 grams blood sugar diagnostic (Blood #100 ea 01/10/24 Glucose Test strips) blood-glucose meter #1 ea 01/10/24 isosorbide mononitrate 60 mg 30 mg (1/2 x 60 mg) PO QPM #90 tabs 03/16/24 tablet,extended release 24 hr sulfamethoxazole 800 1 tab PO BID 30 days #60 tabs 03/16/24 mg-trimethoprim 160 mg tablet aspirin 81 mg tablet,delayed 81 mg PO QAM #30 tabs 03/20/24 release hydrocodone 5 mg-acetaminophen 325 1 tab PO DAILY PRN pain #7 tabs 04/06/24 mg tablet cefpodoxime 200 mg tablet 200 mg PO BID #20 tabs 04/07/24 apremilast 10 mg (4)-20 mg (4)-30 See Rx Instructions PO PER PKG DIR 04/16/24 mg (47) tablets in a dose pack #55 ea (Otezla Starter) atorvastatin 80 mg tablet 80 mg PO QAM #30 tabs 04/16/24 cyclobenzaprine 10 mg tablet 10 mg PO TID PRN Muscle Spasm #90 04/16/24 tabs dulaglutide 0.75 mg/0.5 mL 0.75 mg (0.5 mL) SUBCUT Q7D #1 mL 04/16/24 subcutaneous pen injector duloxetine 60 mg capsule,delayed 60 mg PO DAILY #30 caps 04/16/24 release empagliflozin 25 mg tablet 25 mg PO DAILY #30 tabs 04/16/24 (Jardiance) epinephrine 0.3 mg/0.3 mL 0.3 mg (0.3 mL) IM Q4H PRN 04/16/24 injection, auto-injector (EpiPen anaphylaxis #2 ea 2-Pankaj) ezetimibe 10 mg tablet 10 mg PO DAILY #30 tabs 04/16/24 furosemide 40 mg tablet 40 mg PO DAILY PRN Edema #30 tabs 04/16/24 hydroxyzine HCl 25 mg tablet 25 mg PO Q6H PRN itching #20 tabs 04/16/24 losartan 50 mg tablet 50 mg PO DAILY@0800 #30 tabs 04/16/24 metformin 500 mg tablet,extended 100 mg (0.2 x 500 mg) PO BID #60 04/16/24 release 24 hr tabs metoprolol succinate 25 mg 25 mg PO QAM #90 tabs 04/16/24 tablet,extended release 24 hr nitroglycerin 0.4 mg sublingual 0.4 mg sublingual Q5M PRN Chest 04/16/24 tablet (Nitrostat) Pain #30 tabs ondansetron 4 mg disintegrating 4 mg PO Q6H PRN Nausea And 04/16/24 tablet Vomiting #20 tabs pen needle, diabetic 31 gauge x #100 ea 04/16/2403/01 (Comfort EZ Pen [place]) pen needle, diabetic 32 gauge x #100 ea 04/16/24 (Comfort EZ Pen [place]) quetiapine 200 mg tablet 200 mg PO BEDTIME #30 tabs 04/16/24 ticagrelor 90 mg tablet (Brilinta) 90 mg PO BID #180 tabs 04/16/24 tiotropium bromide 18 mcg capsule 1 cap inhalation DAILY copd 30 04/16/24 with inhalation device (Spiriva days #30 inhalations with HandiHaler) umeclidinium 62.5 mcg/actuation 1 inh inhalation DAILY #30 ea 04/16/24 blister powder for inhalation (Incruse Ellipta) Diabetic shoes with 3 sets of #1 ea 04/24/24 insoles and toe filler to right mupirocin 2 % topical ointment 1 applic topical TID 2 weeks #22 04/24/24 grams sulfamethoxazole 800 1 tab PO BID 7 days #14 tabs 04/24/24 mg-trimethoprim 160 mg tablet (Bactrim DS) tramadol 50 mg tablet 50 mg PO Q8H PRN pain #90 tabs 05/28/24 insulin glargine 100 unit/mL (3 25 unit (0.25 mL) SUBCUT BID #15 mL 05/31/24 mL) subcutaneous pen (Basaglar KwikPen U-100 Insulin) Wheel chair #1 ea 07/19/24 linezolid 600 mg tablet 600 mg PO BID 2 weeks #28 tabs 07/19/24 tramadol 50 mg tablet 50 mg PO Q8H PRN pain 14 days #42 07/19/24 tabs Allergies Allergy/AdvReac Type Severity Reaction Status Date / Time fentanyl Allergy Unknown ALGY-Difficulty Verified 07/23/24 13:35 Breathing adhesive Allergy Unknown Verified 07/23/24 13:35 codeine Allergy Unknown Verified 07/23/24 13:35 latex Allergy ALGY-Swell Verified 07/23/24 13:35 Lip/Tongue/Throat naproxen [From Naprosyn] Allergy Unknown Verified 07/23/24 13:35 nut - unspecified Allergy ALGY-Anaphy Verified 07/23/24 13:35 laxis oxycodone [From Roxicodone] Allergy ADR-Muscle Verified 07/23/24 13:35 Pain Penicillins Allergy Unknown Verified 07/23/24 13:35 tramadol Allergy ADR-Itching Verified 07/23/24 13:35 doxycycline AdvReac Mild photosensit Uncoded 07/23/24 13:35 ivity Review of Systems Narrative: Constitutional symptoms: Negative except as documented in HPI. Skin symptoms: Negative except as documented in HPI. Eye symptoms: Negative except as documented in HPI. ENMT symptoms: Negative except as documented in HPI. Respiratory symptoms: Negative except as documented in HPI. Cardiovascular symptoms: Negative except as documented in HPI. Gastrointestinal symptoms: Negative except as documented in HPI. Genitourinary symptoms: Negative except as documented in HPI. Musculoskeletal symptoms: Negative except as documented in HPI. Neurologic symptoms: Negative except as documented in HPI. Psychiatric symptoms: Negative except as documented in HPI. Endocrine symptoms: Negative except as documented in HPI. 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 COPD (chronic obstructive pulmonary disease) Hypersensitivity pneumonitis Rheumatoid arthritis Infection of total left knee replacement Right wrist deformity History of stroke Acute exacerbation of chronic obstructive pulmonary disease (COPD) Acute encephalopathy Acute respiratory failure with hypoxia Acute alteration in mental status Sepsis Diabetes Sacral pressure ulcer Cellulitis of gluteal region Seizure disorder Hypoxemia Seizure UTI (urinary tract infection) Chronic, continuous use of opioids Seizures Acute and chronic respiratory failure with hypoxia Pneumonia Pneumonia Acute hypoxemic respiratory failure Stenosis of left internal carotid artery with cerebral infarction Diabetic foot ulcer Right arm weakness Hoarseness of voice Sepsis Numbness and tingling in both hands Urinary tract infection Chest pain Syncope Needs flu shot Carpal tunnel syndrome, right Urinary incontinence Chronic knee pain Abnormal stress test CAD (coronary artery disease) Acute exacerbation of CHF (congestive heart failure) Unstable angina COPD exacerbation Exposure to COVID-19 virus Compression fracture of L2 lumbar vertebra Right hip pain Dyspnea (HFpEF) heart failure with preserved ejection fraction Candidiasis of vagina History of CVA (cerebrovascular accident) Elevated troponin Pericardial effusion Pressure ulcer Prosthetic joint infection Septic arthritis of knee, left Osteoarthritis of left knee History of hypoglycemic coma Obesity (BMI 35.0-39.9 without comorbidity) Peripheral sensory neuropathy due to type 2 diabetes mellitus Coronary artery disease due to type 2 diabetes mellitus Diabetes type 2, uncontrolled Neuropathy Insomnia Fibromyalgia, primary Hyperlipidemia, mixed CVA (cerebral vascular accident) Dyslipidemia Leukocytosis NSTEMI (non-ST elevated myocardial infarction) Thought to be secondary to plaque rupture. Angiogram July 04 no flow-limiting lesions, or restenosis of previous stent from April 2020 Chronic obstructive pulmonary disease, unspecified Vitamin D deficiency Type 2 diabetes mellitus with diabetic autonomic (poly)neuropathy Essential hypertension Encounter for long-term opiate analgesic use Opioid contract exists Current every day smoker Chronic pain of left knee Low back pain radiating to both legs Intervertebral disc disorder of lumbar region with myelopathy Lumbosacral spondylosis without myelopathy Osteoarthritis of spine at multiple levels Chronic left-sided low back pain Surgical History Status post left knee replacement History of coronary angiogram Angiogram April 2020 with 90% circumflex lesion, drug-eluting stent placed by Dr. Jerome Status post lumbar laminectomy S/P lumbar fusion DR. Shreya ZAYAS IN [place], [place] L4-L5, L5-S1 S/p bilateral carpal tunnel release History of arthroscopic surgery of elbow BILATERAL S/P hysterectomy S/P knee surgery RIGHT Family History Other CAD (coronary artery disease) Cancer Diabetes Social History Smoking and tobacco/nicotine status: never used tobacco/nicotine Alcohol intake: former Substance/Drug Use: never Caregiver/support person: Yes Lives independently: No Housing: Prison Marital status: Unknown Marital status details: She and son state she is not service: No Current occupational status: unemployed Pets and animals: Yes Do you think of yourself as: Straight/Heterosexual Current gender identity: Female Physical Exam Narrative: EXAM NARRATIVE: General: Alert, no acute distress. Skin: Warm, dry. Head: Normocephalic, atraumatic. Neck: Supple, trachea midline. Eye: Extraocular movements are intact. Ears, nose, mouth and throat: mucosa moist. Cardiovascular: Regular, Normal peripheral perfusion. Respiratory: Lungs are clear to auscultation, respirations are non-labored, breath sounds are equal, Symmetrical chest wall expansion. Gastrointestinal: Soft, Nontender, Non distended Musculoskeletal: Right foot great toe has been amputated. Second and third digits appear enlarged and swollen with pain. Left foot her great toe has an opening at the end with drainage. Appears enlarged and red. Her other toes on that foot also have some redness. Neurological: Alert and oriented, No focal neurological deficit observed. Psychiatric: Cooperative, appropriate mood & affect. Course Vital Signs: Vital signs: Vital Signs Temperature 98.1 F 07/23/24 13:31 Pulse Rate 95 07/23/24 16:30 Respiratory Rate 18 07/23/24 16:30 Blood Pressure 138/75 07/23/24 16:25 Pulse Oximetry 94 07/23/24 16:30 Oxygen Delivery Me thod Room Air 07/23/24 16:30 MDM - Extremity (Nontraumatic) Medical Decision Making Medical decision making: Differential diagnosis including but not limited to and based on the above HPI, review of systems and physical exam: X-ray of the left foot was ordered to evaluate the osteomyelitis. Lab work including blood cultures, lactate, ESR and CRP were ordered to evaluate. BUN and creatinine presurgically. Hemoglobin etc. Orders placed to evaluate differential diagnosis based on the above differential, HPI and physical exam X-ray of the left foot: Radiology reads no acute findings. This was reviewed and interpreted by myself the emergency room physician. I also reviewed the radiology report. Lab Review: Laboratory results were reviewed and interpreted by myself the emergency room physician. Some leukocytosis with a white count of 12.8. Hemoglobin stable at 13.6. BUN and creatinine are 19 and 1. Sodium is little low at 129. Glucose still high at 243. CRP is elevated at 22. ESR is elevated at 67 I reviewed the patient's medical record. Reexamination: Patient remained stable. No increased work of breathing. No altered mental status. No focal motor deficits. Consultation: I spoke with Dr. Rosa who request admission to the hospitalist service. He plans on doing surgery. I am starting him back on Zyvox and adding cefepime. Assessment and plan: Diabetic foot infection ?IV Zyvox and cefepime in the emergency room -I discussed the patient with the hospitalist on-call who is admitting the patient. - Discussed findings and plan with patient. Answered any questions. - All laboratory values were reviewed and interpreted personally by myself, the ER physician - All imaging was reviewed and interpreted personally by myself, the ER physician. - Evaluation and treatment of this problem were appropriate in the emergency setting Lab Data 07/23/24 16:00 07/23/24 16:00 Radiology Impressions Foot X-Ray 07/23/24 15:00 IMPRESSION: No acute findings. Laboratory Results WBC 12.84 10^3/uL (3.29-11.43) H 07/23/24 16:00 RBC 5.78 10^6/uL (3.85-5.65) H 07/23/24 16:00 Hgb 13.60 g/dL (11.27-16.99) 07/23/24 16:00 Hct 43.2 % (36-47) 07/23/24 16:00 MCV 74.7 fl (85-98) L 07/23/24 16:00 MCH 23.5 pg (27-33) L 07/23/24 16:00 MCHC 31.5 g/dL (30-55) 07/23/24 16:00 RDW 18.6 % (12.1-15.1) H 07/23/24 16:00 Plt Count 634 10^3/cmm (157-399) H 07/23/24 16:00 MPV 9.0 fL (7.4-10.4) 07/23/24 16:00 Lymph % (Auto) Not Reportable 07/23/24 16:00 [place] % (Auto) Not Reportable 07/23/24 16:00 Lymph # (Auto) Not Reportable 07/23/24 16:00 [place] # (Auto) Not Reportable 07/23/24 16:00 Total Counted 100 (0-100) 07/23/24 16:00 Atypical Lymphs % 1.0 % (0-5) 07/23/24 16:00 Absolute Neutrophils 6.2 10^3/cmm (1.4-6.5) 07/23/24 16:00 Segmented Neutrophils 44 % 07/23/24 16:00 Band Neutrophils 4.0 % 07/23/24 16:00 Absolute Lymphocytes 5.1 10^3/cmm (1.2-3.4) H 07/23/24 16:00 Lymphocytes (Manual) 39 % 07/23/24 16:00 Monocytes (Manual) 5.0 % 07/23/24 16:00 Absolute Monocytes 0.6 10^3/cmm (0.1-0.6) 07/23/24 16:00 Eosinophils (Manual) 3 % 07/23/24 16:00 Absolute Eosinophils 0.4 10^3/cmm (0.0-0.7) 07/23/24 16:00 Basophils (Manual) 1.0 % 07/23/24 16:00 Absolute Basophils 0.1 10^3/cmm (0.0-0.2) 07/23/24 16:00 Metamyelocytes 2.0 % 07/23/24 16:00 Myelocytes 1.0 % 07/23/24 16:00 Platelet Estimate Increased (Normal) H 07/23/24 16:00 Giant Platelets Trace 07/23/24 16:00 Anisocytosis 1+ H 07/23/24 16:00 Microcytosis 1+ H 07/23/24 16:00 ESR 67 mm/hr (0-15) H 07/23/24 16:00 Sodium 129 mmol/L (136-145) L 07/23/24 16:00 Potassium 4.7 mmol/L (3.5-5.1) 07/23/24 16:00 Chloride 95 mmol/L (98-107) L 07/23/24 16:00 Carbon Dioxide 21 mmol/L (22-29) L 07/23/24 16:00 Anion Gap 17.7 (5-19) 07/23/24 16:00 BUN 19 mg/dL (6-20) 07/23/24 16:00 Creatinine 1.0 mg/dL (0.5-0.9) H 07/23/24 16:00 GFR Calculation 57.1 mL/min (90-130) L 07/23/24 16:00 Glucose 243 mg/dL (65-115) H 07/23/24 16:00 Calculated Osmolality 278 mOsm/kg (285-295) L 07/23/24 16:00 Lactic Acid 2.3 mmol/L (0.5-2.2) H 07/23/24 16:00 Calcium 9.8 mg/dL (8.5-10.5) 07/23/24 16:00 Total Bilirubin 0.2 mg/dL (0.15-1.2) 07/23/24 16:00 AST 12 U/L (0-32) 07/23/24 16:00 ALT 15 U/L (0-33) 07/23/24 16:00 Alkaline Phosphatase 138 U/L (35-105) H 07/23/24 16:00 C-Reactive Protein 21.1 mg/L (0.0-4.9) H 07/23/24 16:00 Total Protein 8.2 g/dL (6.6-8.7) 07/23/24 16:00 Albumin 3.9 g/dL (3.5-5.2) 07/23/24 16:00 Globulin 4.3 g/dL (1.3-4.6) 07/23/24 16:00 Amorphous Sediment Not Reportable 07/23/24 16:30 All radiology interpretation(s) finalized by discharge Discharge Plan Discharge Patient Disposition: Admitted As Inpatient Clinical Impression: Diabetic foot infection Condition: Stable Coding Level of Care Code ED Plastic And Reconstructive Surgeon for Nahed Alcazar
[2024-07-23 16:17] LABS: Hematocrit 43.2 % (36-47); Mean Corpuscular HGB Conc 31.5 g/dL (30-55); Mean Corpuscular Hemoglobin 23.5 pg (27-33); Mean Corpuscular Volume 74.7 fl (85-98); Platelet Count 634 10^3/cmm (157-399); Red Blood Count 5.78 10^6/uL (3.85-5.65); Red Cell Distribution Width 18.6 % (12.1-15.1); White Blood Count 12.84 10^3/uL (3.29-11.43)
[2024-07-23 16:28] LABS: Erythrocyte Sedimentation Rate 67 mm/hr (0-15)
[2024-07-23 16:35] LABS: Lactic Sepsis W/Reflex 2.3 mmol/L (0.5-2.2)
[2024-07-23 16:36] LABS: Alanine Aminotransferase 15 U/L (0-33); Albumin Level 3.9 g/dL (3.5-5.2); Alkaline Phosphatase 138 U/L (35-105); Anion Gap 17.7 (5-19); Aspartate Amino Transferase 12 U/L (0-32); Blood Urea Nitrogen 19 mg/dL (6-20); C Reactive Protein 21.1 mg/L (0.0-4.9); Calcium 9.8 mg/dL (8.5-10.5); Carbon Dioxide 21 mmol/L (22-29); Chloride 95 mmol/L (98-107); Creatinine Clr Calc Pharmacy 66.9343; Globulin 4.3 g/dL (1.3-4.6); Glomerular Filtration Rate 57.1 mL/min (90-130); Glucose 243 mg/dL (65-115); Osmolality Calculated 278 mOsm/kg (285-295); Potassium 4.7 mmol/L (3.5-5.1); Sodium 129 mmol/L (136-145); Total Bilirubin 0.2 mg/dL (0.15-1.2); Total Protein 8.2 g/dL (6.6-8.7)
[2024-07-23] MEDS: cefepime 2,000 MG in sodium chloride 0.9% (plus) 50 ML 100 MG IV (16:38)
[2024-07-23 16:51] LABS: Bilirubin Urine Negative (Negative); Blood Urine Negative (Negative); Glucose Urine UA 3+ (Normal); Ketones Urine Negative (Negative); Leukocyte Esterase Urine 1+ (Negative); Nitrate Urine Positive (Negative); Protein Urine Negative (Negative); Urine Appearance Cloudy (CLEAR); Urine Color Yellow (Yellow); Urobilinogen Urine 0.2 mg/dL (Negative); pH Urine 5.5 (5-7)
[2024-07-23 16:55] LABS: Slide Review Slide Review Perform
[2024-07-23 16:56] LABS: Absolute Eosinophils 0.4 10^3/cmm (0.0-0.7); Absolute Neutrophil 6.2 10^3/cmm (1.4-6.5); Absolute Segmented Neutrophil 5.6 10/cmm (1.6-7.1); Band Neutrophils Absolute 0.5 10^3/cmm (0.0-1.2); Basophils Absolute 0.1 10^3/cmm (0.0-0.2); Eosinophils 3 %; Giant Platelets Trace; Lymphocytes 39 %; Lymphocytes Absolute 5.1 10^3/cmm (1.2-3.4); Monocytes Absolute 0.6 10^3/cmm (0.1-0.6); Platelet Estimate Increased (Normal); Segmented Neutrophils 44 %; Total Cells Counted 100 (0-100)
[2024-07-23 16:56] LABS: Add Urine Microscopic? YES
[2024-07-23 16:57] LABS: Anisocytosis 1+; Microcytosis 1+
[2024-07-23 17:13] LABS: Specific Gravity, Urine 1.037 (1.005-1.030); UA Slide Review UA Slide Review Perf
[2024-07-23 17:15] LABS: UA Manual Slide Review YES
[2024-07-23 17:16] LABS: Add Urine Culture? Yes; Bacteria Urine 3+ /hpf; Hyaline Casts Urine 0-4 /lpf; Mucus Urine 1+ /hpf; Squamous Epithelial Cell Urine 0-4 /hpf (0-5); WBC Urine >100 /hpf (0-5)
[2024-07-23] MEDS: linezolid premix 600 MG/300 ML PREMIX 300 MG IV (17:23)
--- NOTE | 2024-07-23 17:38 | PM.HP ---
Providers/Chief Complaint Primary Care Provider: Laurel Eagle MD Chief Complaint: SENT FROM [facility] History of Present Illness Mayra Ascencio is a 59 year old female with a past medical history of CAD, type 2 diabetes mellitus, peripheral arterial disease, who presents [facility] as she has increased left great toe swelling, erythema, drainage with also developing erythema, swelling of right foot second and third digit, she does report fevers and chills, no nausea, no vomiting no chest pain, patient saw Dr. Rosa this morning, plans on possible amputation of left great toe, and right second and third digit, Review of Systems Const: Reports: fever(s) and chills Card: Denies: chest pain Resp: Denies: dyspnea GI: Denies: abdominal pain Medications/Allergies Home Medications Medication Instructions Recorded Confirmed Last Taken Type blood sugar diagnostic (Blood #50 ea 08/10/23 07/23/24 Unknown Rx Glucose Test strips) lancets #100 ea 11/28/23 07/23/24 Unknown Rx pantoprazole 40 mg tablet,delayed 40 mg PO QAM #90 tabs 01/09/24 07/23/24 Unknown Rx release albuterol sulfate 90 mcg/actuation 2 puff inhalation Q6H PRN 01/10/24 07/23/24 Unknown Rx aerosol inhaler shortness of breath or wheezing #8.5 grams blood sugar diagnostic (Blood #100 ea 01/10/24 07/23/24 Unknown Rx Glucose Test strips) blood-glucose meter #1 ea 01/10/24 07/23/24 Unknown Rx tobramycin 0.3 %-dexamethasone 0.1 1 drp ophthalmic (eye) QID 03/08/24 07/23/24 Unknown History % eye drops,suspension isosorbide mononitrate 60 mg 30 mg (1/2 x 60 mg) PO QPM #90 tabs 03/16/24 07/23/24 Unknown Rx tablet,extended release 24 hr sulfamethoxazole 800 1 tab PO BID 30 days #60 tabs 03/16/24 07/23/24 Unknown Rx mg-trimethoprim 160 mg tablet aspirin 81 mg tablet,delayed 81 mg PO QAM #30 tabs 03/20/24 07/23/24 Unknown Rx release cilostazol 50 mg tablet 50 mg PO BID 04/06/24 07/23/24 Unknown History hydrocodone 5 mg-acetaminophen 325 1 tab PO DAILY PRN pain #7 tabs 04/06/24 07/23/24 Unknown Rx mg tablet levetiracetam 500 mg tablet 500 mg PO BID 04/06/24 07/23/24 Unknown History cefpodoxime 200 mg tablet 200 mg PO BID #20 tabs 04/07/24 07/23/24 Unknown Rx apremilast 10 mg (4)-20 mg (4)-30 See Rx Instructions PO PER PKG DIR 04/16/24 07/23/24 Unknown Rx mg (47) tablets in a dose pack #55 ea (Otezla Starter) atorvastatin 80 mg tablet 80 mg PO QAM #30 tabs 04/16/24 07/23/24 Unknown Rx cyclobenzaprine 10 mg tablet 10 mg PO TID PRN Muscle Spasm #90 04/16/24 07/23/24 Unknown Rx tabs dulaglutide 0.75 mg/0.5 mL 0.75 mg (0.5 mL) SUBCUT Q7D #1 mL 04/16/24 07/23/24 Unknown Rx subcutaneous pen injector duloxetine 60 mg capsule,delayed 60 mg PO DAILY #30 caps 04/16/24 07/23/24 Unknown Rx release empagliflozin 25 mg tablet 25 mg PO DAILY #30 tabs 04/16/24 07/23/24 Unknown Rx (Jardiance) epinephrine 0.3 mg/0.3 mL 0.3 mg (0.3 mL) IM Q4H PRN 04/16/24 07/23/24 Unknown Rx injection, auto-injector (EpiPen anaphylaxis #2 ea 2-Pankaj) ezetimibe 10 mg tablet 10 mg PO DAILY #30 tabs 04/16/24 07/23/24 Unknown Rx furosemide 40 mg tablet 40 mg PO DAILY PRN Edema #30 tabs 04/16/24 07/23/24 Unknown Rx hydroxyzine HCl 25 mg tablet 25 mg PO Q6H PRN itching #20 tabs 04/16/24 07/23/24 Unknown Rx losartan 50 mg tablet 50 mg PO DAILY@0800 #30 tabs 04/16/24 07/23/24 Unknown Rx metformin 500 mg tablet,extended 100 mg (0.2 x 500 mg) PO BID #60 04/16/24 07/23/24 Unknown Rx release 24 hr tabs metoprolol succinate 25 mg 25 mg PO QAM #90 tabs 04/16/24 07/23/24 Unknown Rx tablet,extended release 24 hr nitroglycerin 0.4 mg sublingual 0.4 mg sublingual Q5M PRN Chest 04/16/24 07/23/24 Unknown Rx tablet (Nitrostat) Pain #30 tabs ondansetron 4 mg disintegrating 4 mg PO Q6H PRN Nausea And 04/16/24 07/23/24 Unknown Rx tablet Vomiting #20 tabs pen needle, diabetic 31 gauge x #100 ea 04/16/24 07/23/24 Unknown Rx 5/16 (Comfort EZ Pen [place]) pen needle, diabetic 32 gauge x #100 ea 04/16/24 07/23/24 Unknown Rx 5/32 (Comfort EZ Pen [place]) quetiapine 200 mg tablet 200 mg PO BEDTIME #30 tabs 04/16/24 07/23/24 Unknown Rx ticagrelor 90 mg tablet (Brilinta) 90 mg PO BID #180 tabs 04/16/24 07/23/24 Unknown Rx tiotropium bromide 18 mcg capsule 1 cap inhalation DAILY copd 30 04/16/24 07/23/24 Unknown Rx with inhalation device (Spiriva days #30 inhalations with HandiHaler) umeclidinium 62.5 mcg/actuation 1 inh inhalation DAILY #30 ea 04/16/24 07/23/24 Unknown Rx blister powder for inhalation (Incruse Ellipta) Diabetic shoes with 3 sets of #1 ea 04/24/24 07/23/24 Unknown Rx insoles and toe filler to right mupirocin 2 % topical ointment 1 applic topical TID 2 weeks #22 04/24/24 07/23/24 Unknown Rx grams sulfamethoxazole 800 1 tab PO BID 7 days #14 tabs 04/24/24 07/23/24 Unknown Rx mg-trimethoprim 160 mg tablet (Bactrim DS) tramadol 50 mg tablet 50 mg PO Q8H PRN pain #90 tabs 05/28/24 07/23/24 Unknown Rx insulin glargine 100 unit/mL (3 25 unit (0.25 mL) SUBCUT BID #15 mL 05/31/24 07/23/24 Unknown Rx mL) subcutaneous pen (Basaglar KwikPen U-100 Insulin) Wheel chair #1 ea 07/19/24 07/23/24 Unknown Rx linezolid 600 mg tablet 600 mg PO BID 2 weeks #28 tabs 07/19/24 07/23/24 Unknown Rx tramadol 50 mg tablet 50 mg PO Q8H PRN pain 14 days #42 07/19/24 07/23/24 Unknown Rx tabs Allergies Allergy/AdvReac Type Severity Reaction Status Date / Time fentanyl Allergy Unknown ALGY-Difficulty Verified 07/23/24 13:35 Breathing adhesive Allergy Unknown Verified 07/23/24 13:35 codeine Allergy Unknown Verified 07/23/24 13:35 latex Allergy ALGY-Swell Verified 07/23/24 13:35 Lip/Tongue/Throat naproxen [From Naprosyn] Allergy Unknown Verified 07/23/24 13:35 nut - unspecified Allergy ALGY-Anaphy Verified 07/23/24 13:35 laxis oxycodone [From Roxicodone] Allergy ADR-Muscle Verified 07/23/24 13:35 Pain Penicillins Allergy Unknown Verified 07/23/24 13:35 tramadol Allergy ADR-Itching Verified 07/23/24 13:35 doxycycline AdvReac Mild photosensit Uncoded 07/23/24 13:35 ivity PFSH Acute PFSH: Medical History (Updated 07/23/24 @ 17:44 by Kehinde Cruz MD) Thrombocytosis, unspecified Diabetes Cellulitis PAD (peripheral artery disease) Essential hypertension Depression Anemia 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 COPD (chronic obstructive pulmonary disease) Hypersensitivity pneumonitis Rheumatoid arthritis Infection of total left knee replacement Right wrist deformity History of stroke Acute exacerbation of chronic obstructive pulmonary disease (COPD) Acute encephalopathy Acute respiratory failure with hypoxia Acute alteration in mental status Sepsis Diabetes Sacral pressure ulcer Cellulitis of gluteal region Seizure disorder Hypoxemia Seizure UTI (urinary tract infection) Chronic, continuous use of opioids Seizures Acute and chronic respiratory failure with hypoxia Pneumonia Pneumonia Acute hypoxemic respiratory failure Stenosis of left internal carotid artery with cerebral infarction Diabetic foot ulcer Right arm weakness Hoarseness of voice Sepsis Numbness and tingling in both hands Urinary tract infection Chest pain Syncope Needs flu shot Carpal tunnel syndrome, right Urinary incontinence Chronic knee pain Abnormal stress test CAD (coronary artery disease) Acute exacerbation of CHF (congestive heart failure) Unstable angina COPD exacerbation Exposure to COVID-19 virus Compression fracture of L2 lumbar vertebra Right hip pain Dyspnea (HFpEF) heart failure with preserved ejection fraction Candidiasis of vagina History of CVA (cerebrovascular accident) Elevated troponin Pericardial effusion Pressure ulcer Prosthetic joint infection Septic arthritis of knee, left Osteoarthritis of left knee History of hypoglycemic coma Obesity (BMI 35.0-39.9 without comorbidity) Peripheral sensory neuropathy due to type 2 diabetes mellitus Coronary artery disease due to type 2 diabetes mellitus Diabetes type 2, uncontrolled Neuropathy Insomnia Fibromyalgia, primary Hyperlipidemia, mixed CVA (cerebral vascular accident) Dyslipidemia Leukocytosis NSTEMI (non-ST elevated myocardial infarction) Thought to be secondary to plaque rupture. Angiogram July 04 no flow-limiting lesions, or restenosis of previous stent from April 2020 Chronic obstructive pulmonary disease, unspecified Vitamin D deficiency Type 2 diabetes mellitus with diabetic autonomic (poly)neuropathy Essential hypertension Encounter for long-term opiate analgesic use Opioid contract exists Current every day smoker Chronic pain of left knee Low back pain radiating to both legs Intervertebral disc disorder of lumbar region with myelopathy Lumbosacral spondylosis without myelopathy Osteoarthritis of spine at multiple levels Chronic left-sided low back pain Surgical History Status post left knee replacement History of coronary angiogram Angiogram April 2020 with 90% circumflex lesion, drug-eluting stent placed by Dr. Jerome Status post lumbar laminectomy S/P lumbar fusion DR. Shreya ZAYAS IN [place], [place] L4-L5, L5-S1 S/p bilateral carpal tunnel release History of arthroscopic surgery of elbow BILATERAL S/P hysterectomy S/P knee surgery RIGHT Family History Other CAD (coronary artery disease) Cancer Diabetes Social History Smoking and tobacco/nicotine status: never used tobacco/nicotine Alcohol intake: former Substance/Drug Use: never Caregiver/support person: Yes Lives independently: No Housing: [facility] Marital status: Unknown Marital status details: She and son state she is not service: No Current occupational status: unemployed Pets and animals: Yes Do you think of yourself as: Straight/Heterosexual Current gender identity: Female Vitals/I&O/Wt Last Vital Signs Temp 98.1 F 07/23/24 13:31 Pulse 95 10/07/24 16:30 Resp 18 07/23/24 16:30 BP 138/75 07/23/24 16:25 Pulse Ox 94 07/23/24 16:30 O2 Del Method Room Air 07/23/24 16:30 07/23/24 07/23/24 07/23/24 06:59 14:59 22:59 Intake Total 50 / 50 Balance 50 / 50 Weight last 48 hrs Weight 85.275 kg Physical Exam Const: COMMON NORMALS: no acute distress and patient oriented x3 HENMT: COMMON NORMALS: normocephalic HEAD & SCALP: normocephalic Eye: COMMON NORMALS: Equal, round and reactive pupils present and EOMs intact bilaterally Resp: COMMON NORMALS: normal respiratory effort, No retractions, No use of accessory muscles and clear to auscultation bilaterally AUSCULTATION: clear to auscultation bilaterally Cardio: COMMON NORMALS: regular rate, regular rhythm, S1 normal heart sound present and S2 normal heart sound present RATE: regular rate RHYTHM: regular rhythm HEART SOUNDS: S1 normal heart sound present and S2 normal heart sound present GI: COMMON NORMALS: Normal to inspection, nondistended, normoactive bowel sounds present, Soft to palpation and non-tender Extremity: NARRATIVE EXTREMITY EXAM: Bilateral 1+ pitting edema Left foot, first digit, bone exposed with erythema, swelling Right foot, second and third digit erythema, swelling Left foot, DP PT pulses diminished, but palpable Right foot, DP PT pulses diminished but palpable Left calf, swelling Neuro: COMMON NORMALS: patient oriented x3, CN's II-XII intact bilaterally and moves all extremities Psych: COMMON NORMALS: mental status grossly normal Data 07/23/24 16:00 07/23/24 16:00 Micro: Microbiology 07/23/24 16:06 Blood Culture - Preliminary Blood SPECIMEN COLLECTED 07/23/24 16:00 Blood Culture - Preliminary Blood SPECIMEN COLLECTED A&P Assessment and plan (1) Cellulitis: Qualifiers: Laterality: right Site of cellulitis: extremity Site of cellulitis of extremity: lower extremity Qualified Code(s): L03.115 - Cellulitis of right lower limb (2) Diabetic foot infection: (3) Type 2 diabetes mellitus with diabetic polyneuropathy: (4) Urinary tract infection: Plan Diabetic foot infection -Left foot, first digit -Right foot, second and third digit -Requiring surgical intervention, IV antibiotics -WBC 12.4, ESR 67, CRP 21.1 ? With history of MRSA, ESBL ? Plan -Follow blood cultures ? Start vancomycin ? Start meropenem ? N.p.o. midnight ? High-dose sliding scale ? Monitor closely ? podiatry on consult Peripheral arterial disease CT/CT angio abd aorta runof 02/29/2024 IMPRESSION: 1. RIGHT: Moderate approximate 50% stenosis proximal SFA. Superficial femoral artery is patent to the popliteal fossa. Mild stenosis at the adductor hiatus. Moderate to severe segmental stenosis involving the popliteal artery. Severe popliteal artery stenosis above the knee series 5 image 669. Popliteal artery remains patent. Images degraded in the popliteal fossa. Popliteal artery remains patent to the trifurcation with three-vessel runoff to the ankle. Somewhat poor peroneal artery runoff. 2. LEFT: Mild stenosis at the SFA origin. Superficial femoral artery remains patent to the adductor hiatus. Moderate stenosis at the adductor hiatus. Severe stenosis of the popliteal artery above the knee series 5 image 659. Popliteal artery remains patent to the trifurcation. Three-vessel runoff to the ankle. Somewhat diminutive anterior tibial and peroneal arteries. -Continue aspirin, Brilinta, statin, I cannot Type 2 diabetes mellitus ? High-dose insulin sliding scale UTI -urine culture -us renal -meropenem LLE swelling -venous us Pseudohyponatremia, 129, likely second hypoglycemia, monitor Full code # Lovenox for DVT prophylaxis Attestations Medical Necessity Statement*: Patient requires hospitalization, inpatient, greater than 2 midnights, for diabetic foot infection Diagnoses Cellulitis L03.115 Laterality: right Site of cellulitis: extremity Site of cellulitis of extremity: lower extremity Diabetic foot infection E11.628; L08.9 Type 2 diabetes mellitus with diabetic polyneuropathy E11.42 Urinary tract infection N39.0
--- NOTE | 2024-07-23 17:41 | USR_ITS ---
PROCEDURE INFORMATION: Exam: US Duplex Left Lower Extremity Veins, Limited Exam date and time: 07/23/2024 6:50 PM Age: 59 years old Clinical indication: Swelling (edema) of limb; Lower extremity, left TECHNIQUE: Imaging protocol: Real-time duplex ultrasound of the left extremity with 2-D pierce scale, color Doppler flow and spectral waveform analysis including responses to compression and other maneuvers (when performed) with image documentation. Limited exam focused on the left lower extremity veins. COMPARISON: US soft tissue/extremity [id number] 03/13/2024 1:13 PM FINDINGS: Left deep veins: Unremarkable. The common femoral, femoral, proximal profunda femoral, popliteal, posterior tibial and peroneal veins are patent without thrombus. Normal compressibility, augmentation response and Doppler waveforms. Superficial veins: Greater saphenous vein at the saphenofemoral junction is patent without thrombus. Soft tissues: Unremarkable. US/[place] [id number] IMPRESSION: No sonographic evidence of deep vein thrombosis.
--- NOTE | 2024-07-23 17:46 | USR_ITS ---
PROCEDURE INFORMATION: Exam: US Retroperitoneal, Complete, Kidneys and Bladder Exam date and time: 07/23/2024 6:58 PM Age: 59 years old Clinical indication: Fever; Additional info: UTI, trey TECHNIQUE: Imaging protocol: Real-time ultrasound of the retroperitoneum with image documentation. Complete exam focused on the bilateral kidneys and urinary bladder. COMPARISON: US renal BI* [id number] 08/18/2022 2:45 PM FINDINGS: Right kidney: Normal. No stones. No hydronephrosis. Left kidney: Normal. No stones. No hydronephrosis. Urinary bladder: Unremarkable. US/US renal BI* [id number] IMPRESSION: Unremarkable kidneys and bladder.
[2024-07-23 18:00] LABS: Reflex Lactate Order REFLEX LACTIC ORDERD
[2024-07-23 18:32] LABS: NT Pro B Type Natriuretic Pept 39 pg/mL (0-125); Procalcitonin 0.06 ng/mL (0-0.5)
--- NOTE | 2024-07-23 18:56 | PC.NURSE ---
report called to [facility] med surg.
[2024-07-23] MEDS: morphine 4 mg/mL SDV 1 mL IVP (19:04)
[2024-07-23 19:54] LABS: Lactic Acid level (Lactate) 2.3 mmol/L (0.5-2.2)
--- NOTE | 2024-07-23 20:00 | PHA.VACGOAL ---
Vancomycin Goal - Goal Vancomycin Goal:: 10-15 mg/L Vancomycin Indication:: Other (CELLULITIS) - Therapy Current therapy:: Meropenem (500MG IVP Q8H) Day of therpy:: Day []of [] . Actual body weight (kg): 85.275 kg [place] body weight: 57 kg Dosing weight (kg): 85.275 kg - Data Labs: WBC 12.84 10^3/uL (3.29-11.43) H 07/23/24 16:00 RBC 5.78 10^6/uL (3.85-5.65) H 07/23/24 16:00 Hgb 13.60 g/dL (11.27-16.99) 07/23/24 16:00 Hct 43.2 % (36-47) 07/23/24 16:00 MCV 74.7 fl (85-98) L 07/23/24 16:00 MCH 23.5 pg (27-33) L 07/23/24 16:00 MCHC 31.5 g/dL (30-55) 07/23/24 16:00 RDW 18.6 % (12.1-15.1) H 07/23/24 16:00 Sodium 129 mmol/L (136-145) L 07/23/24 16:00 Potassium 4.7 mmol/L (3.5-5.1) 07/23/24 16:00 Chloride 95 mmol/L (98-107) L 07/23/24 16:00 Carbon Dioxide 21 mmol/L (22-29) L 07/23/24 16:00 Anion Gap 17.7 (5-19) 07/23/24 16:00 BUN 19 mg/dL (6-20) 07/23/24 16:00 Creatinine 1.0 mg/dL (0.5-0.9) H 07/23/24 16:00 GFR Calculation 57.1 mL/min (90-130) L 07/23/24 16:00 Last dialysis session:: N/A Drug administration history:: Medications Vancomycin HCl 1,000 mg/ (Sodium Chloride) 250 mls @ 250 mls/hr IV Q12H YUSUF Meropenem (Meropenem 500 Mg Sdv) 500 mg IVP Q8H YUSUF; Protocol Discontinued Medications Linezolid (Zyvox Premix) 600 mg in 300 mls @ 300 mls/hr IV ONCE ONE; Protocol Stop: 07/23/24 17:05 Last Admin: 07/23/24 18:54 Dose: Infused Treatment plan:: new consult Regimen:: Vancomycin 1000mg IVPB Q12H to start 12 hours after Zyvox dose given Follow up:: Pharmacy to monitor daily. Scr daily with AM labs
[2024-07-23 20:36] LABS: Estmated Average Glucose 243; Hemoglobin A1C 10.1 % (4.0-6.0)
[2024-07-23] MEDS: quetiapine 100 mg Tablet 200 MG PO (20:48)
[2024-07-23] MEDS: cilostazol 100 mg Tablet 50 MG PO (20:49)
[2024-07-23] MEDS: ticagrelor 90 mg Tablet PO (20:49)
[2024-07-23] MEDS: isosorbide mononitrate ER 30 mg Tablet PO (20:50)
[2024-07-23] MEDS: pantoprazole 40 mg SDV IVP (20:50)
[2024-07-23] MEDS: levETIRAcetam 500 mg Tablet PO (20:50)
[2024-07-23] MEDS: enoxaparin 40 mg/0.4 mL Syringe SUBCUT (20:50)
[2024-07-23 20:53] LABS: Thyroid Stimulating Hormone 1.99 uIU/mL (0.27-4.20)
[2024-07-23] MEDS: ondansetron 2 mg/ML SDV 2 mL 4 MG IVP (21:40)
[2024-07-23] MEDS: insulin lispro 100 unit/1 mL SUBCUT (21:41)
--- NOTE | 2024-07-23 21:50 | CTR_ITS ---
PROCEDURE INFORMATION: Exam: CT Abdomen And Pelvis Without Contrast Exam date and time: 07/23/2024 9:58 PM Age: 59 years old Clinical indication: Vomiting; Prior surgery; Surgery date: 6+ months; Surgery type: Hysterectomy, lumbar fusion, laminectomy; Additional info: New vomiting TECHNIQUE: Imaging protocol: Computed tomography of the abdomen and pelvis without contrast. Radiation optimization: All CT scans at this facility use at least one of these dose optimization techniques: automated exposure control; mA and/or kV adjustment per patient size (includes targeted exams where dose is matched to clinical indication); or iterative reconstruction. COMPARISON: CT pelvis w con* [id number] 05/25/2022 7:51 PM RADIATION DOSE METRICS: Total DLP (mGy-cm): 830.22 FINDINGS: Lungs: Emphysematous changes. Coronary arteries: Coronary artery atherosclerotic calcifications. Liver: Normal. No mass. Gallbladder and biliary ducts: Normal. No calcified stones. No ductal dilation. Pancreas: Normal. No ductal dilation. Spleen: Splenic calcified granulomas. Adrenal glands: Normal. No mass. Kidneys and ureters: Normal. No hydronephrosis. Stomach and bowel: Moderate to severe constipation without bowel dilation to indicate obstruction. Appendix: No evidence of appendicitis. Intraperitoneal space: Unremarkable. No free air. No significant fluid collection. Vasculature: Unremarkable. No abdominal aortic aneurysm. Lymph nodes: Unremarkable. No enlarged lymph nodes. Urinary bladder: Unremarkable as visualized. Reproductive: Unremarkable as visualized. Bones/joints: Lumbar spine surgical hardware seen in place. L2 vertebral body superior endplate compression fracture without retropulsion of bony fragments, age indeterminate. Soft tissues: Small umbilical hernia containing omentum without bowel. CT/CT abdomen pelvis wo con [id number] IMPRESSION: 1. Negative for a focal acute inflammatory process in the abdomen or pelvis. 2. Coronary artery atherosclerotic calcifications. 3. Emphysematous changes. 4. Splenic calcified granulomas. 5. Moderate to severe constipation without bowel dilation to indicate obstruction. 6. Lumbar spine surgical hardware seen in place. 7. Small umbilical hernia containing omentum without bowel. 8. L2 vertebral body superior endplate compression fracture without retropulsion of bony fragments, age indeterminate.
[2024-07-23 22:12] LABS: Glucose Point of Care 250 mg/dL (70-110)
[2024-07-23] MEDS: morphine 4 mg/mL SDV 1 mL 2 MG IVP (23:12)
[2024-07-23] MEDS: sodium chloride 0.9% 1,000 ML 75 ML IV (23:13)
[2024-07-24] VITALS (26 sets, daily range): BP systolic 92–131; BP diastolic 59–79; PULSE 66–100; RESP 12–21; TEMP 36.2–36.8; O2SAT 86–97; BMI 33.2
--- NOTE | 2024-07-24 00:19 | PC.NURSE ---
Patient arrived to [facility] shortly after 1899. Patient was SBA transfer from ER stretcher to [facility] bed. Patient was oriented to room, call light, and given water and a sandwich. During admission assessment at 2049 patient stated she wears 2L O2 at night using a nasal cannula. Provided cannula to use at night. Attempted to administer hydrocodone-acetaminophen 10-325 PO once as ordered. Patient refused, stated Absolutely not, I am highly highly allergic to that. After further inquiry, patient stated she feels itchy after taking hydrocodone-acetaminophen, and stated I can only take morphine or demerol, those are the only two pain medications I'm not allergic to. Patient projectile vomited undigested sandwich at 2139. Notified Dr. Joyce via [employer] at 2144. Received orders to make patient NPO, start normal saline at 75mls/hr, give zofran 4mg IVP Q6H prn, and take patient for abdomen/pelvis CT without contrast. Patient was given dose of zofran and taken to CT. Returned to room, no further complaints of nausea or episodes of emesis.
[2024-07-24] MEDS: meropenem 500 mg SDV IVP ×2 (03:00→10:39)
[2024-07-24] MEDS: vancomycin 1,000 MG in sodium chloride 0.9% 250 ML 250 MG IV ×2 (04:29→17:05)
[2024-07-24 05:20] LABS: Basophils # 0.1 10^3/uL (0.0-0.1); Basophils % 0.7 %; Eosinophils # 0.5 10^3/uL (0.0-0.8); Eosinophils % 4.5 %; Hematocrit 37.2 % (36-47); Lymphocytes # 3.9 10^3/uL (0.8-4.8); Lymphocytes % 35.1 %; Mean Corpuscular HGB Conc 31.2 g/dL (30-55); Mean Corpuscular Hemoglobin 23.7 pg (27-33); Mean Corpuscular Volume 75.9 fl (85-98); Mean Platelet Volume 9.2 fL (7.4-10.4); Monocytes % 8.6 %; Neutrophils # 5.58 10^3/uL (1.8-7.7); Neutrophils % 50.2 %; Nucleated Red Blood Cells % 0 %; Platelet Count 503 10^3/cmm (157-399); Red Cell Distribution Width 17.6 % (12.1-15.1); White Blood Count 11.11 10^3/uL (3.29-11.43)
[2024-07-24 05:44] LABS: Anion Gap 16.1 (5-19); Blood Urea Nitrogen 17 mg/dL (6-20); Calcium 8.7 mg/dL (8.5-10.5); Carbon Dioxide 23 mmol/L (22-29); Chloride 100 mmol/L (98-107); Glomerular Filtration Rate 73.9 mL/min (90-130); Glucose 190 mg/dL (65-115); Osmolality Calculated 287 mOsm/kg (285-295); Potassium 4.1 mmol/L (3.5-5.1); Sodium 135 mmol/L (136-145)
[2024-07-24] MEDS: metoprolol succinate ER (24 HR) 25 mg Tablet PO (06:24)
[2024-07-24] MEDS: atorvastatin 40 mg Tablet 80 MG PO (06:24)
[2024-07-24] MEDS: aspirin 81 mg EC Tablet PO (06:25)
[2024-07-24 06:35] LABS: Glucose Point of Care 242 mg/dL (70-110)
[2024-07-24] MEDS: morphine 4 mg/mL SDV 1 mL 2 MG IVP ×3 (09:25→21:51)
[2024-07-24] MEDS: cilostazol 100 mg Tablet 50 MG PO ×2 (09:28→17:06)
[2024-07-24] MEDS: insulin lispro 100 unit/1 mL SUBCUT (09:28)
[2024-07-24] MEDS: duloxetine 60 mg Capsule PO (09:28)
[2024-07-24] MEDS: ticagrelor 90 mg Tablet PO ×2 (09:29→17:06)
[2024-07-24] MEDS: levETIRAcetam 500 mg Tablet PO ×2 (09:29→17:06)
--- NOTE | 2024-07-24 10:20 | PC.CHAP ---
Pastoral Care Encounter/Spiritual Assessment Type of Contact [] Declined mutton puncher visit [] Patient/Family/Request visit [] Outpatient visit [] Follow-up visit [] Physician referral [] Code/Alert [x] Routine visit [] Staff referral [] Actively dying [] Patient sleeping [] Family support [] [] Out of room [] Palliative care [] [] Receiving care in room [] Pre-surgical visit [] Trauma [] Long length of stay [] ICU visit [] Other: Relational/Emotional Strength [x] Patient feels connected with others/family/visitors/staff [] Distress [] Loneliness/isolation [] Abandonment Spirituality of Patient [x] Person of Mary [] Attends Religion of their Mary [x] Believes in Prayer [] Reads Bible or Mu-Ism materials [] There are Spiritual issues to be addressed [employer] D[employer]ician Interventions [x] Prayer [x] Active listening [x] Non-anxious presence [x] Spiritual/emotional support [] Crisis/trauma care [] Spiritual counseling [] Bereavement support [] Provided bereavement packet [] Provided Bible/devotional materials [] Provided toy/stuffed animal, coloring book to patient or family member [] Provided Communion [] Anointing/[place] [] Salvation [x] Completed spiritual assessment [] Other: Impact on Illness or Injury [] Angry [] Fearful [] Anxious [] Often cries [] Exhaustion [] Unable to work [] Unable to attend catholic [] Unable to walk/stand [] Unable to read [] Unable to drive [] Unable to eat/drink [] Unable to sleep [] Unable to be with family [] Patient intubated [] Other: Summary Time spent with patient 5 min
[2024-07-24 11:59] LABS: Glucose Point of Care 166 mg/dL (70-110)
--- NOTE | 2024-07-24 12:44 | P.HPUD_ITS ---
Surgery/Procedure H&P Update DATE OF PROCEDURE: July 24, 2024 DATE H&P PERFORMED: 03/07/24 H&P UPDATE INFORMATION: I have reviewed H&P completed within last 30 days, I have examined patient prior to procedure, Changes to prior documentation as noted here and H&P is in [facility] EMR on date indicated PLANNED PROCEDURE: Operation Date: 07/24/24 13:00 Proposed Procedures p Amputation left great toe and right second, third, fourth and fifth toes(Bilateral) - Luis Butt DPM
--- NOTE | 2024-07-24 12:45 | ANES.PREANE2 ---
Pre-Anesthetic Assessment Height/Weight: Height 1.65 m Weight 90.582 kg Temp Pulse Resp BP Pulse Ox O2 Del Method 97.9 F 93 18 92/59 97 Room Air 07/24/24 11:19 07/24/24 11:19 07/24/24 11:19 07/24/24 11:19 07/24/24 11:19 07/24/24 11:19 Operation Date: 07/24/24 13:00 Proposed Procedures p Amputation left great toe and right second and third toe(Bilateral) - Luis Butt DPM Familial anesthetic complications: None Was Beta Jose L taken within 24 hours: N/A Was Clonidine taken within 24 hours: N/A Last intake: > 8 hrs Social Tobacco and No alcohol Exam alert, oriented x 3, clear to auscultation bilaterally and regular rate & rhythm Airway Mallampati: Class I Dentition: other (no teeth) Pulmonary Chronic Obstructive Pulmonary Disease hx resp failure CV/HEM Coronary Artery Disease, Congestive Heart Failure, Hypertension, Myocardial Infarction and Peripheral Vascular Disease Metabolic Diabetes [place] [facility] [place] Rheumatoid Arthritis Neuropsych Cerebrovascular Accident (residuial R sided hemiparesis) and Seizure L carotid stenosis Anesthetic Plan ASA status: 4 Anesthesia: MAC Risk of > 500 ml blood loss (7ml/kg in children): No Medications/Allergies Home Medications Medication Instructions Recorded Confirmed Last Taken Type blood sugar diagnostic (Blood #50 ea 08/10/23 07/24/24 Unknown Rx Glucose Test strips) lancets #100 ea 11/28/23 07/24/24 Unknown Rx pantoprazole 40 mg tablet,delayed 40 mg PO QAM #90 tabs 01/09/24 07/24/24 Unknown Rx release albuterol sulfate 90 mcg/actuation 2 puff inhalation Q6H PRN 01/10/24 07/24/24 07/23/24 Rx aerosol inhaler shortness of breath or wheezing #8.5 grams blood sugar diagnostic (Blood #100 ea 01/10/24 07/24/24 Unknown Rx Glucose Test strips) blood-glucose meter #1 ea 01/10/24 07/24/24 Unknown Rx tobramycin 0.3 %-dexamethasone 0.1 1 drp ophthalmic (eye) QID 03/08/24 07/24/24 07/23/24 History % eye drops,suspension isosorbide mononitrate 60 mg 30 mg (1/2 x 60 mg) PO QPM #90 tabs 03/16/24 07/24/24 07/23/24 Rx tablet,extended release 24 hr aspirin 81 mg tablet,delayed 81 mg PO QAM #30 tabs 03/20/24 07/24/24 07/23/24 Rx release cilostazol 50 mg tablet 50 mg PO BID 04/06/24 07/24/24 07/23/24 History levetiracetam 500 mg tablet 500 mg PO BID 04/06/24 07/24/24 07/23/24 History atorvastatin 80 mg tablet 80 mg PO QAM #30 tabs 04/16/24 07/24/24 07/23/24 Rx cyclobenzaprine 10 mg tablet 10 mg PO TID PRN Muscle Spasm #90 04/16/24 07/24/24 07/23/24 Rx tabs dulaglutide 0.75 mg/0.5 mL 0.75 mg (0.5 mL) SUBCUT Q7D #1 mL 04/16/24 07/24/24 07/21/24 Rx subcutaneous pen injector duloxetine 60 mg capsule,delayed 60 mg PO DAILY #30 caps 04/16/24 07/24/24 07/23/24 Rx release empagliflozin 25 mg tablet 25 mg PO DAILY #30 tabs 04/16/24 07/24/24 07/23/24 Rx (Jardiance) epinephrine 0.3 mg/0.3 mL 0.3 mg (0.3 mL) IM Q4H PRN 04/16/24 07/24/24 07/23/24 Rx injection, auto-injector (EpiPen anaphylaxis #2 ea 2-Pankaj) ezetimibe 10 mg tablet 10 mg PO DAILY #30 tabs 04/16/24 07/24/24 07/23/24 Rx furosemide 40 mg tablet 40 mg PO DAILY PRN Edema #30 tabs 04/16/24 07/24/24 07/23/24 Rx hydroxyzine HCl 25 mg tablet 25 mg PO Q6H PRN itching #20 tabs 04/16/24 07/24/24 07/23/24 Rx losartan 50 mg tablet 50 mg PO DAILY@0800 #30 tabs 04/16/24 07/24/24 07/23/24 Rx metoprolol succinate 25 mg 25 mg PO QAM #90 tabs 04/16/24 07/24/24 07/23/24 Rx tablet,extended release 24 hr nitroglycerin 0.4 mg sublingual 0.4 mg sublingual Q5M PRN Chest 04/16/24 07/24/24 Unknown Rx tablet (Nitrostat) Pain #30 tabs ondansetron 4 mg disintegrating 4 mg PO Q6H PRN Nausea And 04/16/24 07/24/24 Unknown Rx tablet Vomiting #20 tabs pen needle, diabetic 31 gauge x #100 ea 04/16/24 07/24/24 Unknown Rx 5/16 (Comfort EZ Pen [place]) pen needle, diabetic 32 gauge x #100 ea 04/16/24 07/24/24 Unknown Rx 5/32 (Comfort EZ Pen [place]) quetiapine 200 mg tablet 200 mg PO BEDTIME #30 tabs 04/16/24 07/24/24 07/22/24 Rx ticagrelor 90 mg tablet (Brilinta) 90 mg PO BID #180 tabs 04/16/24 07/24/24 07/23/24 Rx tiotropium bromide 18 mcg capsule 1 cap inhalation DAILY copd 30 04/16/24 07/24/24 07/23/24 Rx with inhalation device (Spiriva days #30 inhalations with HandiHaler) umeclidinium 62.5 mcg/actuation 1 inh inhalation DAILY #30 ea 04/16/24 07/24/24 07/23/24 Rx blister powder for inhalation (Incruse Ellipta) Diabetic shoes with 3 sets of #1 ea 04/24/24 07/24/24 Unknown Rx insoles and toe filler to right mupirocin 2 % topical ointment 1 applic topical TID 2 weeks #22 04/24/24 07/24/24 07/23/24 Rx grams sulfamethoxazole 800 1 tab PO BID 7 days #14 tabs 04/24/24 07/24/24 07/23/24 Rx mg-trimethoprim 160 mg tablet (Bactrim DS) insulin glargine 100 unit/mL (3 25 unit (0.25 mL) SUBCUT BID #15 mL 05/31/24 07/24/24 07/23/24 Rx mL) subcutaneous pen (Basaglar GabbyPen U-100 Insulin) Wheel chair #1 ea 07/19/24 07/24/24 Unknown Rx linezolid 600 mg tablet 600 mg PO BID 2 weeks #28 tabs 07/19/24 07/24/24 07/23/24 Rx tramadol 50 mg tablet 50 mg PO Q8H PRN pain 14 days #42 07/19/24 07/24/24 Unknown Rx tabs metformin 500 mg tablet 500 mg PO BID 07/24/24 07/24/24 07/23/24 History Allergies Allergy/AdvReac Type Severity Reaction Status Date / Time fentanyl Allergy Unknown ALGY-Difficulty Verified 07/23/24 13:35 Breathing adhesive Allergy Unknown Verified 07/23/24 13:35 codeine Allergy Unknown Verified 07/23/24 13:35 hydrocodone Allergy ADR-Itching Verified 07/23/24 20:47 latex Allergy ALGY-Swell Verified 07/23/24 13:35 Lip/Tongue/Throat naproxen [From Naprosyn] Allergy Unknown Verified 07/23/24 13:35 nut - unspecified Allergy ALGY-Anaphy Verified 07/23/24 13:35 laxis oxycodone [From Roxicodone] Allergy ADR-Muscle Verified 07/23/24 13:35 Pain Penicillins Allergy Unknown Verified 07/23/24 13:35 tramadol Allergy ADR-Itching Verified 07/23/24 13:35 doxycycline AdvReac Mild photosensit Uncoded 07/23/24 13:35 ivity Current Medications Generic Name Dose Route Start Last Admin Trade Name Freq PRN Reason Stop Dose Admin Aspirin 81 mg 07/24/24 06:00 07/24/24 06:25 Aspirin 81 Mg Ec Tablet PO 81 mg QAM YUSUF Administration Atorvastatin Calcium 80 mg 07/24/24 06:00 07/24/24 06:24 Atorvastatin 40 Mg Tablet PO 80 mg QAM YUSUF Administration Cilostazol 50 mg 07/23/24 20:00 07/24/24 09:28 Cilostazol 100 Mg Tablet PO 50 mg BID YUSUF Administration Duloxetine HCl 60 mg 07/24/24 09:00 07/24/24 09:28 Duloxetine 60 Mg Capsule PO 60 mg DAILY YUSUF Administration Enoxaparin Sodium 40 mg 07/23/24 20:00 07/23/24 20:50 Enoxaparin 40 Mg/0.4 Ml Syringe SUBCUT 40 mg Q24H YUSUF Administration Vancomycin HCl 1,000 mg/ 250 mls @ 250 mls/hr 07/24/24 05:00 07/24/24 05:30 Sodium Chloride IV Infused Q12H YUSUF Infusion Sodium Chloride 1,000 mls @ 75 mls/hr 07/23/24 22:00 07/23/24 23:13 Sodium Chloride 0.9% IV 75 mls/hr .[id number] YUSUF Administration Insulin Human Lispro 0 unit 07/23/24 19:21 07/24/24 09:28 Insulin Lispro 100 Unit/1 Ml SUBCUT 10 unit TIDWM YUSUF Administration Protocol Isosorbide Mononitrate 30 mg 07/23/24 19:21 07/23/24 20:50 Isosorbide Mononitrate Er 30 Mg Tablet PO 30 mg QPM YUSUF Administration Levetiracetam 500 mg 07/23/24 19:21 07/24/24 09:29 Levetiracetam 500 Mg Tablet PO 500 mg BID YUSUF Administration Meropenem 500 mg 07/24/24 02:00 07/24/24 10:39 Meropenem 500 Mg Sdv IVP 500 mg Q8H YUSUF Administration Protocol Metoprolol Succinate 25 mg 07/24/24 06:00 07/24/24 06:24 Metoprolol Succinate Er (24 Hr) 25 Mg Tablet PO 25 mg QAM YUSUF Administration Morphine Sulfate 2 mg 07/23/24 19:21 07/24/24 09:25 Morphine 4 Mg/Ml Sdv 1 Ml IVP 2 mg Q4H PRN Administration SEVERE PAIN Pantoprazole Sodium 40 mg 07/23/24 19:21 07/23/24 20:50 Pantoprazole 40 Mg Sdv IVP 40 mg Q24H YUSUF Administration Quetiapine Fumarate 200 mg 07/23/24 21:00 07/23/24 20:48 Quetiapine 100 Mg Tablet PO 200 mg BEDTIME YUSUF Administration Ticagrelor 90 mg 07/23/24 20:20 07/24/24 09:29 Ticagrelor 90 Mg Tablet PO 90 mg BID YUSUF Administration PFSH Anesthesia Medical History (Updated 07/23/24 @ 17:44 by Kehinde Cruz MD) Thrombocytosis, unspecified Diabetes Cellulitis PAD (peripheral artery disease) Essential hypertension Depression Anemia 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 COPD (chronic obstructive pulmonary disease) Hypersensitivity pneumonitis Rheumatoid arthritis Infection of total left knee replacement Right wrist deformity History of stroke Acute exacerbation of chronic obstructive pulmonary disease (COPD) Acute encephalopathy Acute respiratory failure with hypoxia Acute alteration in mental status Sepsis Diabetes Sacral pressure ulcer Cellulitis of gluteal region Seizure disorder Hypoxemia Seizure UTI (urinary tract infection) Chronic, continuous use of opioids Seizures Acute and chronic respiratory failure with hypoxia Pneumonia Pneumonia Acute hypoxemic respiratory failure Stenosis of left internal carotid artery with cerebral infarction Diabetic foot ulcer Right arm weakness Hoarseness of voice Sepsis Numbness and tingling in both hands Urinary tract infection Chest pain Syncope Needs flu shot Carpal tunnel syndrome, right Urinary incontinence Chronic knee pain Abnormal stress test CAD (coronary artery disease) Acute exacerbation of CHF (congestive heart failure) Unstable angina COPD exacerbation Exposure to COVID-19 virus Compression fracture of L2 lumbar vertebra Right hip pain Dyspnea (HFpEF) heart failure with preserved ejection fraction Candidiasis of vagina History of CVA (cerebrovascular accident) Elevated troponin Pericardial effusion Pressure ulcer Prosthetic joint infection Septic arthritis of knee, left Osteoarthritis of left knee History of hypoglycemic coma Obesity (BMI 35.0-39.9 without comorbidity) Peripheral sensory neuropathy due to type 2 diabetes mellitus Coronary artery disease due to type 2 diabetes mellitus Diabetes type 2, uncontrolled Neuropathy Insomnia Fibromyalgia, primary Hyperlipidemia, mixed CVA (cerebral vascular accident) Dyslipidemia Leukocytosis NSTEMI (non-ST elevated myocardial infarction) Thought to be secondary to plaque rupture. Angiogram July 04 no flow-limiting lesions, or restenosis of previous stent from April 2020 Chronic obstructive pulmonary disease, unspecified Vitamin D deficiency Type 2 diabetes mellitus with diabetic autonomic (poly)neuropathy Essential hypertension Encounter for long-term opiate analgesic use Opioid contract exists Current every day smoker Chronic pain of left knee Low back pain radiating to both legs Intervertebral disc disorder of lumbar region with myelopathy Lumbosacral spondylosis without myelopathy Osteoarthritis of spine at multiple levels Chronic left-sided low back pain Surgical History Status post left knee replacement History of coronary angiogram Angiogram April 2020 with 90% circumflex lesion, drug-eluting stent placed by Dr. Jerome Status post lumbar laminectomy S/P lumbar fusion DR. Shreya ZAYAS IN [place], [place] L4-L5, L5-S1 S/p bilateral carpal tunnel release History of arthroscopic surgery of elbow BILATERAL S/P hysterectomy S/P knee surgery RIGHT Family History Other CAD (coronary artery disease) Cancer Diabetes Social History Smoking and tobacco/nicotine status: never used tobacco/nicotine Alcohol intake: former Substance/Drug Use: never Caregiver/support person: Yes Lives independently: No Housing: Snf Marital status: Unknown Marital status details: She and son state she is not service: No Current occupational status: unemployed Pets and animals: Yes Do you think of yourself as: Straight/Heterosexual Current gender identity: Female Data Anesthesia 07/24/24 04:32 07/24/24 04:32 Short CBC 07/23/24 07/24/24 Range/Units 16:00 04:32 WBC 12.84 H 11.11 (3.29-11.43) 10^3/uL Hgb 13.60 11.60 (11.27-16.99) g/dL Hct 43.2 37.2 (36-47) % MCV 74.7 L 75.9 L (85-98) fl Plt Count 634 H 503 H (157-399) 10^3/cmm Neut % (Auto) 50.2 % Neut # (Auto) 5.58 (1.8-7.7) 10^3/uL BMP 07/23/24 07/24/24 16:00 04:32 Sodium 129 L 135 L Potassium 4.7 4.1 Chloride 95 L 100 Carbon Dioxide 21 L 23 BUN 19 17 Creatinine 1.0 H 0.8 Glucose 243 H 190 H Calcium 9.8 8.7 Cardiac Enzymes 07/23/24 Range/Units 16:00 NT-Pro-B Natriuret Pep 39 (0-125) pg/mL Liver Function 07/23/24 Range/Units 16:00 Total Bilirubin 0.2 (0.15-1.2) mg/dL AST 12 (0-32) U/L ALT 15 (0-33) U/L Alkaline Phosphatase 138 H (35-105) U/L Albumin 3.9 (3.5-5.2) g/dL Urine 07/23/24 Range/Units 16:30 Urine Color Yellow (Yellow) Urine Appearance Cloudy A (CLEAR) Urine pH 5.5 (5-7) Ur Specific [place] 1.037 H (1.005-1.030) Urine Protein Negative (Negative) Urine Glucose (UA) 3+ H (Normal) Urine Ketones Negative (Negative) Urine Nitrate Positive A (Negative) Urine Bilirubin Negative (Negative) Ur Leukocyte Esterase 1+ A (Negative) Urine RBC 10-15 H (0-2) /hpf Urine WBC >100 H (0-5) /hpf Coags 07/23/24 16:00 ESR 67 H C-Reactive Protein 21.1 H Microbiology 07/23/24 16:06 Blood Culture - Preliminary Blood SPECIMEN COLLECTED 07/23/24 16:00 Blood Culture - Preliminary Blood SPECIMEN COLLECTED Cardiac Studies: Echocardiogram 09/13/21 Echocardiogram Limited Views 10/02/20 Echocardiogram Ultrasound 12/29/20 Sestamibi Stress Test (Cardiology) 06/12/21
[2024-07-24] MEDS: sodium chloride 0.9% 1,000 ML 30 ML IV (12:54)
[2024-07-24] MEDS: morphine 4 mg/mL SDV 1 mL IVP (12:56)
[2024-07-24] MEDS: BUPivacaine 0.25% INJ 30 mL INJECTION (13:18)
[2024-07-24] MEDS: lidocaine 1% 10 ML INJ 20 ML XX (13:18)
--- NOTE | 2024-07-24 13:54 | W.PM.BPON ---
Date of Procedure: 12/30/23 Surgeon: Luis Butt DPM Fleet Assistant(s): Kevon Procedure(s) performed: Left great toe amputation. Right second, third, fourth, fifth toe amputations. Findings of the procedure(s): Osteomyelitis left and right toes. Estimated blood loss: 25 mL Specimen(s) removed: Left great toe and right second, third, fourth, fifth toes sent to pathology for permanent Post-operative diagnosis: Osteomyelitis left and right foot.
--- NOTE | 2024-07-24 13:56 | PM.OP ---
Operative Report Date of procedure: July 24, 2024 Pre-op diagnosis: Osteomyelitis left foot Diabetic foot ulcer with infection right foot History of right great toe amputation Diabetes with peripheral neuropathy Peripheral arterial disease Hammertoe contracture of right second, third, fourth, fifth toes. Post-op diagnosis: Same Procedure done: 1) left great toe amputation. CPT code 98399 2) right second toe amputation. CPT code 04833 3) right third toe amputation. CPT code 13209 4) right fourth toe amputation. CPT code 45059 5) right fifth toe amputation. CPT code 10452 Implants: 3-0 Vicryl, 4-0 Vicryl, 4-0 nylon, skin jayme Pathology: Left great toe, right second, third, fourth, fifth toes. Surgeon: Luis Butt DPM Automatic Equipment Technician: Kevon Estimated blood loss: 25 22 minutes IV fluids: See intraoperative documentation Urine output: No urine output Complications: No complications Findings: Clean margin at left great toe amputation and clean margins at right second, third, fourth, fifth toe amputation. Brief History: 59-year-old diabetic female with history of right great toe amputation secondary to osteomyelitis presents with new and worsening wound to left great toe with acute osteomyelitis and wounds at the right second and third toes exposed to fat layer, she was seen on last week in podiatry clinic for evaluation of these wounds and underwent debridement, x-ray and was prescribed linezolid based off of most recent wound culture which was done on her right great toe January 2024 significant for Proteus and MRSA, linezolid was prescribed for this reason, unfortunately patient did not fill that prescription and presents today with worsening of symptoms including increased pain, increased redness and foul drainage from the left great toe. X-ray left foot 3 views taken 07/19/2024 shows erosive changes at the distal medial aspect of the left hallux distal phalanx consistent with acute osteomyelitis, wound probes directly to bone and able to probe to the distal phalanx head. Patient failed to fill her prescription for antibiotics on 07/19/2024 and is now having worsening clinical picture she has cellulitis to the left great toe and foul malodorous drainage from the left great toe wound. Patient states that she would like to proceed with amputation of her left great toe as well as right second, third, fourth, fifth toes, she is directed to the emergency department for admission to the hospital service, podiatry will be consulted for amputation. I reviewed at length with the patient, the risks, potential complications, benefits, alternatives, expectations, and typical outcomes associated with the surgery. The risks and potential complications were explained in detail, including but not limited to infection, wound dehiscence or soft tissue complications, bleeding and hematoma, chronic edema, neuritis or nerve damage producing numbness or chronic pain, CRPS, failure to relieve pain or worsening pain, thick / painful / unsightly scar, limited motion / stiffness, malposition, delayed union, malunion, or nonunion, fracture, reaction to implants, anesthetic complications, venous thromboembolism, and deformity recurrence. I discussed the notion of no regrets with the patient as it pertains to complications and outcomes. The patient seemed to understand the nature of the proposed care and required convalescence. They asked appropriate questions, answered to their satisfaction. They are aware no guarantees can be made as to a satisfactory outcome and they understand there may be other possible unforeseen complications or outcomes not listed here that will be treated accordingly if they arise. There were no written or implied guarantees given to the patient. They gave informed consent to proceed. Procedure: Under mild sedation the patient was brought to the operating room and remained on the gurney in supine position. A timeout was performed. Anesthesia was then administered by the anesthesia service. Local anesthesia was injected by myself consisting of one-to-one mixture 1% lidocaine and 0.5% Marcaine plain in a left male block total of 10 cc and a right second, third, fourth, fifth ray block total of 20 cc. Well-padded pneumatic tourniquet applied to the left and right ankle. The left and right lower extremities were scrubbed, prepped and draped utilizing normal aseptic technique. Both left and right foot were elevated and tourniquet inflated to 250 mmHg. Attention was directed to the left second toe where a full-thickness wound at the distal tuft was appreciated able to visualize distal phalanx which was noted to be dark dusky pierce with purulent drainage and poor density. Incision planned out was a transverse fishmouth incision encompassing the left first metatarsal phalangeal joint. Utilizing a 10 blade a full-thickness incision was performed through skin down to bone and the left first metatarsal phalangeal joint was sharply disarticulated and the left great toe sent to pathology for permanent. Incision was irrigated with saline solution. Extensor and flexor tendons retracted under traction and transected at their most proximal margins, all bleeders were ligated and cauterized as necessary. Further irrigation was performed and the incision was reapproximated with subcutaneous tissue reapproximated with 4-0 Vicryl and skin with 4-0 nylon. Attention was then directed to the right foot where nonreducible hammertoe deformities of the digits 2, 3, 4, 5 were appreciated with wounds at the distal tuft of the right second and third toe down to myofascial layer and surrounding erythema. Incision was performed individually at the right second and the right third and the right fourth and fifth toes full-thickness down to bone through the right second, third, fourth, fifth metatarsal phalangeal joint which were sharply disarticulated, the right second, third, fourth, fifth toes were passed from the operative field and sent to pathology for permanent. Incisions were irrigated with copious amounts of sterile skin solution, extensor and flexor tendons were transected under traction at the most proximal margin and all bleeders were ligated and cauterized as necessary. Further irrigation was performed, viable margins were appreciated intraoperatively with viable metatarsal head of the second, third, fourth, fifth metatarsal heads and adjacent viable soft tissue. Subcutaneous and deep tissue were closed with 3-0 Vicryl and skin with skin jayme. Both left and right foot incisions were dressed with Adaptic, sterile 4 x 4, Kerlix and Aaron wrap followed by application of postop shoe left and right foot. Tourniquets were deflated at the left and right ankle and a hyperemic response was appreciated at the amputation site of the left foot and right foot. Patient tolerated the procedure and anesthesia well and was transferred to the PACU with vital signs stable and vascular status intact. Following a period of postoperative monitoring she will be transferred back to the floor. Anticipate potential discharge home tomorrow with 2 weeks of oral antibiotics. Patient and her son state that they live in a house in [facility], they do not have transportation and require medical transport which will be need to be contacted by social work.
--- NOTE | 2024-07-24 14:30 | ANE.PACU2 ---
Inpatient post-anesthesia follow up: Airway intact: Yes Vital signs: Temperature 97.9 F Pulse Rate 84 Respiratory Rate 21 Blood Pressure 108/71 Pulse Oximetry 96 Oxygen Delivery Me thod Room Air Oxygen Flow Rate Fraction of Inspir ed Oxygen Hydration adequate: Yes Nausea and vomiting: No Pain level: 1 Mental status: Baseline
--- NOTE | 2024-07-24 16:01 | P.PN_ITS ---
Vitals/I&O/Wt Last Vital Signs Temp 97.9 F 07/24/24 14:32 Pulse 84 07/24/24 15:16 Resp 20 H 07/24/24 15:16 BP 123/65 07/24/24 15:16 Pulse Ox 94 07/24/24 15:16 O2 Del Method Room Air 07/24/24 15:16 07/24/24 07/24/24 07/24/24 06:59 14:59 22:59 Intake Total 250 / 600 200 / 200 1069 / 1269 Output Total Balance 250 / 600 175 / 175 1069 / 1244 Weight last 48 hrs Weight 90.582 kg Weight 90.582 kg Weight 85.275 kg Physical Exam 2 Const: COMMON NORMALS: no acute distress and patient oriented x3 Resp: COMMON NORMALS: normal respiratory effort, No retractions, No use of accessory muscles and clear to auscultation bilaterally AUSCULTATION: clear to auscultation bilaterally Cardio: COMMON NORMALS: regular rate, regular rhythm, S1 normal heart sound present and S2 normal heart sound present RATE: regular rate RHYTHM: r egular rhythm HEART SOUNDS: S1 normal heart sound present and S2 normal heart sound present GI: COMMON NORMALS: Normal to inspection, nondistended, normoactive bowel sounds present and non-tender Extremity: COMMON NORMALS: no pedal edema Neuro: COMMON NORMALS: patient oriented x3 Psych: COMMON NORMALS: mental status grossly normal Data 07/24/24 04:32 07/24/24 04:32 Micro: Microbiology 07/23/24 16:06 Blood Culture - Preliminary Blood SPECIMEN COLLECTED 07/23/24 16:00 Blood Culture - Preliminary Blood SPECIMEN COLLECTED A&P Assessment and plan (1) Cellulitis: Qualifiers: Laterality: right Site of cellulitis: extremity Site of cellulitis of extremity: lower extremity Qualified Code(s): L03.115 - Cellulitis of right lower limb (2) Diabetic foot infection: (3) Type 2 diabetes mellitus with diabetic polyneuropathy: (4) Urinary tract infection: Plan Diabetic foot infection -Left foot, first digit -Right foot, second and third digit -Requiring surgical intervention, IV antibiotics -WBC 12.4, ESR 67, CRP 21.1 ? With history of MRSA, ESBL ? Plan -Follow blood cultures ? vancomycin ? meropenem ? N.p.o. ? High-dose sliding scale ? Monitor closely ? podiatry on consult Peripheral arterial disease CT/CT angio abd aorta runof 02/29/2024 IMPRESSION: 1. RIGHT: Moderate approximate 50% stenosis proximal SFA. Superficial femoral artery is patent to the popliteal fossa. Mild stenosis at the adductor hiatus. Moderate to severe segmental stenosis involving the popliteal artery. Severe popliteal artery stenosis above the knee series 5 image 669. Popliteal artery remains patent. Images degraded in the popliteal fossa. Popliteal artery remains patent to the trifurcation with three-vessel runoff to the ankle. Somewhat poor peroneal artery runoff. 2. LEFT: Mild stenosis at the SFA origin. Superficial femoral artery remains patent to the adductor hiatus. Moderate stenosis at the adductor hiatus. Severe stenosis of the popliteal artery above the knee series 5 image 659. Popliteal artery remains patent to the trifurcation. Three-vessel runoff to the ankle. Somewhat diminutive anterior tibial and peroneal arteries. -Continue aspirin, Brilinta, statin, Type 2 diabetes mellitus ? High-dose insulin sliding scale UTI -urine culture -us renal US/US renal BI* [id number] IMPRESSION: Unremarkable kidneys and bladder. -meropenem LLE swelling -venous [place] US/[place] [id number] IMPRESSION: No sonographic evidence of deep vein thrombosis Pseudohyponatremia, 129, likely second hypoglycemia, monitor Full code # Lovenox for DVT prophylaxis Attestations 2 Medical Necessity Statement*: Patient requires hospitalization for diabetic foot infection, UTI Diagnoses Cellulitis L03.115 Laterality: right Site of cellulitis: extremity Site of cellulitis of extremity: lower extremity Diabetic foot infection E11.628; L08.9 Type 2 diabetes mellitus with diabetic polyneuropathy E11.42 Urinary tract infection N39.0
[2024-07-24 16:33] LABS: Glucose Point of Care 192 mg/dL (70-110)
[2024-07-24] MEDS: isosorbide mononitrate ER 30 mg Tablet PO (17:06)
[2024-07-24 20:33] LABS: Glucose Point of Care 241 mg/dL (70-110)
[2024-07-24] MEDS: acetaminophen 325 mg Tablet 650 MG PO (21:04)
[2024-07-24] MEDS: quetiapine 100 mg Tablet 200 MG PO (21:05)
[2024-07-24] MEDS: enoxaparin 40 mg/0.4 mL Syringe SUBCUT (21:05)
[2024-07-24] MEDS: pantoprazole 40 mg SDV IVP (21:51)
[2024-07-24] MEDS: meropenem 1,000 mg SDV 1000 MG IVP (21:52)
[2024-07-25] VITALS (7 sets, daily range): BP systolic 103–126; BP diastolic 56–65; PULSE 82–97; RESP 16–20; TEMP 36.6–37; O2SAT 93–95
[2024-07-25] MEDS: morphine 4 mg/mL SDV 1 mL 2 MG IVP (01:55)
[2024-07-25] MEDS: sodium chloride 0.9% 1,000 ML 75 ML IV (01:56)
[2024-07-25 06:08] LABS: Basophils # 0.1 10^3/uL (0.0-0.1); Basophils % 0.7 %; Eosinophils # 0.4 10^3/uL (0.0-0.8); Eosinophils % 5.4 %; Hematocrit 33.6 % (36-47); Lymphocytes # 2.1 10^3/uL (0.8-4.8); Lymphocytes % 27.4 %; Mean Corpuscular HGB Conc 31.5 g/dL (30-55); Mean Corpuscular Volume 76.2 fl (85-98); Mean Platelet Volume 8.8 fL (7.4-10.4); Monocytes # 0.8 10^3/uL (0.2-0.9); Monocytes % 10.4 %; Neutrophils # 4.15 10^3/uL (1.8-7.7); Nucleated Red Blood Cells % 0 %; Platelet Count 424 10^3/cmm (157-399); Red Blood Count 4.41 10^6/uL (3.85-5.65); Red Cell Distribution Width 17.3 % (12.1-15.1); White Blood Count 7.53 10^3/uL (3.29-11.43)
[2024-07-25] MEDS: vancomycin 1,000 MG in sodium chloride 0.9% 250 ML 250 MG IV (06:09)
[2024-07-25] MEDS: atorvastatin 40 mg Tablet 80 MG PO (06:09)
[2024-07-25] MEDS: metoprolol succinate ER (24 HR) 25 mg Tablet PO (06:09)
[2024-07-25] MEDS: aspirin 81 mg EC Tablet PO (06:09)
[2024-07-25] MEDS: meropenem 1,000 mg SDV 1000 MG IVP (06:09)
[2024-07-25 06:33] LABS: Anion Gap 13.1 (5-19); Blood Urea Nitrogen 13 mg/dL (6-20); Calcium 8.3 mg/dL (8.5-10.5); Carbon Dioxide 22 mmol/L (22-29); Chloride 106 mmol/L (98-107); Creatinine Clr Calc Pharmacy 98.4654; Glomerular Filtration Rate 86.2 mL/min (90-130); Glucose 177 mg/dL (65-115); Osmolality Calculated 288 mOsm/kg (285-295); Potassium 4.1 mmol/L (3.5-5.1); Sodium 137 mmol/L (136-145)
[2024-07-25 06:36] LABS: Glucose Point of Care 165 mg/dL (70-110)
--- NOTE | 2024-07-25 06:45 | PM.PN ---
Subjective Subjective: Patient is seen bedside this morning, she is lying comfortably in bed with her son Chay, denies any acute events overnight, still requiring pain medication for postop pain secondary to toe amputations. She is status post left great toe amputation and toes 2, 3, 4, 5 amputation right foot. Patient denies any subjective nausea, vomiting, fever, chills, shortness of breath or chest pain. Vitals/I&O/Wt Last Vital Signs Temp 98.6 F 07/25/24 04:00 Pulse 97 07/25/24 04:00 Resp 18 07/25/24 04:00 BP 103/56 07/25/24 04:00 Pulse Ox 93 07/25/24 04:00 O2 Del Method Room Air 07/25/24 04:00 07/24/24 07/24/24 07/25/24 14:59 22:59 06:59 Intake Total 200 / 200 1679 / 1879 240 / 2119 Output Total / 500 / 525 400 / 925 Balance 175 / 175 1179 / 1354 -160 / 1194 Weight last 48 hrs Weight 199 lb 3.2 oz Weight 199 lb 11.2 oz Weight 199 lb 11.2 oz Weight 188 lb Physical Exam Narrative: GENERAL: Patient is alert and oriented ?3 and in no acute distress. The following is a focused bilateral lower extremity exam. VASCULAR: Dorsalis pedis palpable bilaterally. Palpable posterior tibial arteries palpable. Capillary refill time less than 5 seconds to the distal hallux bilaterally. Calf is supple and nontender proximally and distally. Decreased pedal hair growth bilaterally. Mild pitting edema to the right lower extremity. NEUROLOGICAL: Decreased protective sensation in lower extremities. DERMATOLOGICAL: Incisions are well coapted, sutures and jayme intact, no dehiscence periwound erythema warmth or drainage. MUSCULOSKELETAL: Status post left great toe potation amputation toes 2, 3, 4, 5 right foot. History of right great toe amputation. Data 07/25/24 05:30 07/25/24 05:30 Micro: Microbiology 07/23/24 16:06 Blood Culture - Preliminary Blood NEGATIVE TO DATE 07/23/24 16:00 Blood Culture - Preliminary Blood NEGATIVE TO DATE A&P Assessment and plan (1) PAD (peripheral artery disease): (2) Type 2 diabetes mellitus with diabetic autonomic (poly)neuropathy: Qualifiers: Diabetes mellitus intermediate insulin use: unspecified extermination inspector insulin use status Qualified Code(s): E11.43 - Type 2 diabetes mellitus with diabetic autonomic (poly)neuropathy (3) Cellulitis of right foot: (4) Chronic osteomyelitis of right foot: (5) Non-pressure chronic ulcer of other part of left foot with necrosis of bone: Plan 59-year-old diabetic female with history of osteomyelitis and PAD. S/P left hallux amputation and right second, third, fourth, fifth toe amputations date of operation 07/24/2024 Level amputations curative for osteomyelitis. Nonweightbearing, may heel touch for transfers. Discharge plannin weeks oral antibiotics Bedside commode Wheelchair Follow-up in podiatry clinic this Tuesday at 12:30pm Keep current surgical dressings clean, dry and intact until follow-up visit on Tuesday. Pain medication for outpatient sent to [facility] Attestations Medical Necessity Statement*: Status post toe amputation secondary to osteomyelitis Coding Level of Care Code Acute Code for [facility] Diagnoses PAD (peripheral artery disease) I73.9 Type 2 diabetes mellitus with autonomic neuropathy, unspecified whether extermination inspector insulin use E11.43 Diabetes mellitus extermination inspector insulin use: unspecified extermination inspector insulin use status Cellulitis of right foot L03.115 Chronic osteomyelitis of right foot M86.671 Non-pressure chronic ulcer of other part of left foot with necrosis of bone L97.524
[2024-07-25] MEDS: ticagrelor 90 mg Tablet PO (08:10)
[2024-07-25] MEDS: levETIRAcetam 500 mg Tablet PO (08:10)
[2024-07-25] MEDS: duloxetine 60 mg Capsule PO (08:10)
[2024-07-25] MEDS: insulin lispro 100 unit/1 mL SUBCUT ×2 (08:10→11:39)
[2024-07-25] MEDS: cilostazol 100 mg Tablet 50 MG PO (08:10)
[2024-07-25 10:47] LABS: Glucose Point of Care 187 mg/dL (70-110)
--- NOTE | 2024-07-25 11:38 | P.DS_ITS ---
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 Qualified Code(s): E11.43 - Type 2 diabetes mellitus with diabetic autonomic (poly)neuropathy (3) Cellulitis of right foot: Status: Resolved (4) Chronic osteomyelitis of right foot: Status: Acute (5) Non-pressure chronic ulcer of other part of left foot with necrosis of bone: Status: Acute Reason for Visit Reason for Visit: SENT FROM [facility] Course Hospital Course Mayra Ascencio is a 59 year old female with a past medical history of CAD, type 2 diabetes mellitus, peripheral arterial disease, who presents [facility] as she has increased left great toe swelling, erythema, drainage with also developing erythema, swelling of right foot second and third digit, she does report fevers and chills, no nausea, no vomiting no chest pain, patient saw Dr. Butt this morning, plans on possible amputation of left great toe, and right second and third digit, This is a 59-year-old female who was admitted to [facility] for diabetic foot infection, left foot first digit, right foot second and third d igit, requiring IV antibiotics, surgical intervention, status post left great toe amputation toes 2,3,4,5 amputation right foot. Toller procedure well, discharged on p.o. Zyvox for 2 weeks, advised to hydrate well, monitor type 2 diabetes mellitus closely. In terms of ambulation status, patient is nonweightbearing bilateral extremity for at least 2 weeks, may heel touch for transfers, should use wheelchair For her UTI, discharged on p.o. antibiotics, manage inpatient on IV antibiotics For her pain control, patient chronically reports allergies to oxycodone, hydrocodone. Discharged on morphine 7.5 mg p.o. every 12 hours as needed for pain, do not drive or operate heavy machinery or drink while taking medication, do not mix with any other medications Physical Exam Const: COMMON NORMALS: no acute distress and patient oriented x3 Resp: COMMON NORMALS: normal respiratory effort, No retractions, No use of accessory muscles and clear to auscultation bilaterally AUSCULTATION: clear to auscultation bilaterally Cardio: COMMON NORMALS: regular rate, regular rhythm, S1 normal heart sound present and S2 normal heart sound present RATE: regular rate RHYTHM: regular rhythm HEART SOUNDS: S1 normal heart sound present and S2 normal heart sound present GI: COMMON NORMALS: Normal to inspection, nondistended, normoactive bowel sounds present and non-tender Extremity: COMMON NORMALS: no calf tenderness and no pedal edema NARRATIVE EXTREMITY EXAM: Bilateral lower extremity wrapped Neuro: COMMON NORMALS: patient oriented x3 Psych: COMMON NORMALS: mental status grossly normal Discharge Data Studies Completed and Pending Completed Studies During Hospitalization Category Date Time Status CT abdomen pelvis wo con [id number] Stat Cat Scan 07/23/24 21:50 Completed XR foot LT min 3V* [id number] Stat Exams 07/23/24 15:00 Completed US renal BI* [id number] Stat Ultrasound 07/23/24 17:46 Completed US venous duplex lower extremity LT [CV venous duplex Ultrasound 07/23/24 17:[place] [id number]] Stat Pending at discharge Category Date Time Status Basic Metabolic Panel AM LABS Lab 07/26/24 04:00 Ordered Blood Culture Stat Lab 07/23/24 16:06 Results Complete Blood Count w/Auto AM LABS Lab 07/26/24 04:00 Ordered Urine Culture Stat Lab 07/23/24 16:30 Results Vancomycin Trough Timed Lab 07/25/24 16:00 Ordered Pathology: Surgical [PTH] Routine Pth 07/24/24 13:40 Received Radiology Impressions Foot X-Ray 07/23/24 15:00 IMPRESSION: No acute findings. Venous Duplex 07/23/24 17:41 IMPRESSION: No sonographic evidence of deep vein thrombosis. Renal Ultrasound 07/23/24 17:46 IMPRESSION: Unremarkable kidneys and bladder. Abdomen/Pelvis CT 07/23/24 21:50 IMPRESSION: 1. Negative for a focal acute inflammatory process in the abdomen or pelvis. 2. Coronary artery atherosclerotic calcifications. 3. Emphysematous changes. 4. Splenic calcified granulomas. 5. Moderate to severe constipation without bowel dilation to indicate obstruction. 6. Lumbar spine surgical hardware seen in place. 7. Small umbilical hernia containing omentum without bowel. 8. L2 vertebral body superior endplate compression fracture without retropulsion of bony fragments, age indeterminate. Laboratory Results WBC 7.53 10^3/uL (3.29-11.43) 07/25/24 05:30 RBC 4.41 10^6/uL (3.85-5.65) 07/25/24 05:30 Hgb 10.60 g/dL (11.27-16.99) L 07/25/24 05:30 Hct 33.6 % (36-47) L 07/25/24 05:30 MCV 76.2 fl (85-98) L 07/25/24 05:30 MCH 24.0 pg (27-33) L 07/25/24 05:30 MCHC 31.5 g/dL (30-55) 07/25/24 05:30 RDW 17.3 % (12.1-15.1) H 07/25/24 05:30 Plt Count 424 10^3/cmm (157-399) H 07/25/24 05:30 MPV 8.8 fL (7.4-10.4) 07/25/24 05:30 Neut % (Auto) 55.0 % 07/25/24 05:30 Lymph % (Auto) 27.4 % 07/25/24 05:30 [place] % (Auto) 10.4 % 07/25/24 05:30 Eos % (Auto) 5.4 % 07/25/24 05:30 Baso % (Auto) 0.7 % 07/25/24 05:30 Neut # (Auto) 4.15 10^3/uL (1.8-7.7) 07/25/24 05:30 Lymph # (Auto) 2.1 10^3/uL (0.8-4.8) 07/25/24 05:30 [place] # (Auto) 0.8 10^3/uL (0.2-0.9) 07/25/24 05:30 Eos # (Auto) 0.4 10^3/uL (0.0-0.8) 07/25/24 05:30 Baso # (Auto) 0.1 10^3/uL (0.0-0.1) 07/25/24 05:30 Nucleated RBC % (auto) 0 % 07/25/24 05:30 Total Counted 100 (0-100) 07/23/24 16:00 Atypical Lymphs % 1.0 % (0-5) 07/23/24 16:00 Absolute Neutrophils 6.2 10^3/cmm (1.4-6.5) 07/23/24 16:00 Segmented Neutrophils 44 % 07/23/24 16:00 Band Neutrophils 4.0 % 07/23/24 16:00 Absolute Lymphocytes 5.1 10^3/cmm (1.2-3.4) H 07/23/24 16:00 Lymphocytes (Manual) 39 % 07/23/24 16:00 Monocytes (Manual) 5.0 % 07/23/24 16:00 Absolute Monocytes 0.6 10^3/cmm (0.1-0.6) 07/23/24 16:00 Eosinophils (Manual) 3 % 07/23/24 16:00 Absolute Eosinophils 0.4 10^3/cmm (0.0-0.7) 07/23/24 16:00 Basophils (Manual) 1.0 % 07/23/24 16:00 Absolute Basophils 0.1 10^3/cmm (0.0-0.2) 07/23/24 16:00 Metamyelocytes 2.0 % 07/23/24 16:00 Myelocytes 1.0 % 07/23/24 16:00 Nucleated RBCs # 0.0 /100WBC 07/25/24 05:30 Platelet Estimate Increased (Normal) H 07/23/24 16:00 Giant Platelets Trace 07/23/24 16:00 Anisocytosis 1+ H 07/23/24 16:00 Microcytosis 1+ H 07/23/24 16:00 ESR 67 mm/hr (0-15) H 07/23/24 16:00 Sodium 137 mmol/L (136-145) 07/25/24 05:30 Potassium 4.1 mmol/L (3.5-5.1) 07/25/24 05:30 Chloride 106 mmol/L (98-107) 07/25/24 05:30 Carbon Dioxide 22 mmol/L (22-29) 07/25/24 05:30 Anion Gap 13.1 (5-19) 07/25/24 05:30 BUN 13 mg/dL (6-20) 07/25/24 05:30 Creatinine 0.7 mg/dL (0.5-0.9) 07/25/24 05:30 GFR Calculation 86.2 mL/min (90-130) L 07/25/24 05:30 Glucose 177 mg/dL (65-115) H 07/25/24 05:30 POC Glucose 187 mg/dL (70-110) H 07/25/24 10:44 Estimat Average Glucose 243 07/23/24 19:25 Hemoglobin A1c 10.1 % (4.0-6.0) H 07/23/24 19:25 Calculated Osmolality 288 mOsm/kg (285-295) 07/25/24 05:30 Lactic Acid 2.3 mmol/L (0.5-2.2) H 07/23/24 16:00 Lactic Acid (Sepsis) 2.3 mmol/L (0.5-2.2) H 07/23/24 19:25 Calcium 8.3 mg/dL (8.5-10.5) L 07/25/24 05:30 Total Bilirubin 0.2 mg/dL (0.15-1.2) 07/23/24 16:00 AST 12 U/L (0-32) 07/23/24 16:00 ALT 15 U/L (0-33) 07/23/24 16:00 Alkaline Phosphatase 138 U/L (35-105) H 07/23/24 16:00 C-Reactive Protein 21.1 mg/L (0.0-4.9) H 07/23/24 16:00 NT-Pro-B Natriuret Pep 39 pg/mL (0-125) 07/23/24 16:00 Total Protein 8.2 g/dL (6.6-8.7) 07/23/24 16:00 Albumin 3.9 g/dL (3.5-5.2) 07/23/24 16:00 Globulin 4.3 g/dL (1.3-4.6) 07/23/24 16:00 Procalcitonin 0.06 ng/mL (0-0.5) 07/23/24 16:00 TSH 1.99 uIU/mL (0.27-4.20) 07/23/24 19:25 Urine Color Yellow (Yellow) 07/23/24 16:30 Urine Appearance Cloudy (CLEAR) A 07/23/24 16:30 Urine pH 5.5 (5-7) 07/23/24 16:30 Ur Specific [place] 1.037 (1.005-1.030) H 07/23/24 16:30 Urine Protein Negative (Negative) 07/23/24 16:30 Urine Glucose (UA) 3+ (Normal) H 07/23/24 16:30 Urine Ketones Negative (Negative) 07/23/24 16:30 Urine Blood Negative (Negative) 07/23/24 16:30 Urine Nitrate Positive (Negative) A 07/23/24 16:30 Urine Bilirubin Negative (Negative) 07/23/24 16:30 Urine Urobilinogen 0.2 mg/dL (Negative) 07/23/24 16:30 Ur Leukocyte Esterase 1+ (Negative) A 07/23/24 16:30 Urine RBC 10-15 /hpf (0-2) H 07/23/24 16:30 Urine WBC >100 /hpf (0-5) H 07/23/24 16:30 Ur Squamous Epith Cells 0-4 /hpf (0-5) H 07/23/24 16:30 Amorphous Sediment Not Reportable 07/23/24 16:30 Urine Bacteria 3+ /hpf (NONE) H 07/23/24 16:30 Hyaline Casts 0-4 /lpf H 07/23/24 16:30 Urine Mucus 1+ /hpf 07/23/24 16:30 Urine Yeast 1+ /hpf H 07/23/24 16:30 Vitals Last Vital Signs Temp 98.5 F 07/25/24 08:00 Pulse 96 07/25/24 08:00 Resp 17 07/25/24 08:00 BP 126/65 07/25/24 08:00 Pulse Ox 95 07/25/24 08:00 O2 Del Method Room Air 07/25/24 08:00 Discharge Plan Discharge Patient Disposition: Home Condition: Stable Prescriptions: New sulfamethoxazole-trimethoprim [Bactrim DS] 800-160 mg tablet 1 tab PO BID 5 Days Qty: 10 0RF linezolid [Zyvox] 600 mg tablet 600 mg PO BID 14 Days Qty: 28 0RF morphine 15 mg tablet 7.5 mg PO BID PRN (Reason: pain) 5 Days Qty: 10 0RF Continued (DME) Blood Glucose Test Strip See Rx Instructions .Route Qty: 100 0RF Rx Instructions: tid ac meals albuterol sulfate 90 mcg/actuation HFA aerosol inhaler 2 puff inhalation Q6H PRN (Reason: shortness of breath or wheezing) Qty: 8.5 3RF (DME) blood-glucose meter Misc See Rx Instructions .Route Qty: 1 0RF Rx Instructions: dailyAs directed atorvastatin 80 mg tablet 80 mg PO QAM Qty: 30 3RF cyclobenzaprine 10 mg tablet 10 mg PO TID PRN (Reason: Muscle Spasm) Qty: 90 3RF dulaglutide 0.75 mg/0.5 mL pen injector 0.75 mg SUBCUT Q7D Qty: 1 3RF Rx Instructions: ON TUESDAY duloxetine 60 mg capsule,delayed release(DR/EC) 60 mg PO DAILY Qty: 30 4RF Jardiance 25 mg tablet 25 mg PO DAILY Qty: 30 4RF Rx Instructions: 340 b ezetimibe 10 mg tablet 10 mg PO DAILY Qty: 30 4RF furosemide 40 mg tablet 40 mg PO DAILY PRN (Reason: Edema) Qty: 30 3RF hydroxyzine HCl 25 mg tablet 25 mg PO Q6H PRN (Reason: itching) Qty: 20 0RF losartan 50 mg tablet 50 mg PO DAILY@0800 Qty: 30 4RF metoprolol succinate 25 mg tablet extended release 24 hr 25 mg PO QAM Qty: 90 3RF nitroglycerin [Nitrostat] 0.4 mg tablet, sublingual 0.4 mg SUBLINGUAL Q5M PRN (Reason: Chest Pain) Qty: 30 4RF Rx Instructions: do not exceed 3 doses per episode ondansetron 4 mg tablet,disintegrating 4 mg PO Q6H PRN (Reason: Nausea And Vomiting) Qty: 20 3RF (DME) pen needle, diabetic [Comfort EZ Pen [place]] 32 gauge x 5/32 needle See Rx Instructions .Route Qty: 100 2RF Rx Instructions: use 3times a day to inject insulin. (DME) pen needle, diabetic [Comfort EZ Pen [place]] 31 gauge x 5/16 needle See Rx Instructions .Route Qty: 100 6RF Rx Instructions: use daily with levemir quetiapine 200 mg tablet 200 mg PO BEDTIME Qty: 30 4RF Brilinta 90 mg tablet 90 mg PO BID Qty: 180 3RF tiotropium bromide [Spiriva with HandiHaler] 18 mcg capsule, w/inhalation device 1 cap inhalation DAILY 30 Days Qty: 30 3RF Incruse Ellipta 62.5 mcg/actuation blister with device 1 inh inhalation DAILY Qty: 30 3RF epinephrine [EpiPen 2-Pankaj] 0.3 mg/0.3 mL auto-injector 0.3 mg IM Q4H PRN (Reason: anaphylaxis) Qty: 2 0RF (DME) Blood Glucose Test Strip See Rx Instructions .Route Qty: 50 3RF Rx Instructions: As directed accucheck test strips for accu check machine pantoprazole 40 mg tablet,delayed release (DR/EC) 40 mg PO QAM Qty: 90 3RF mupirocin 2 % ointment 1 applic topical TID 14 Days Qty: 22 2RF (DME) Diabetic shoes with 3 sets of insoles and toe filler to right See Rx Instructions .Route .MEDSUPPLY Qty: 1 0RF Rx Instructions: As directed (DME) Wheel chair See Rx Instructions .Route .MEDSUPPLY Qty: 1 0RF Rx Instructions: As directed tramadol 50 mg tablet 50 mg PO Q8H PRN (Reason: pain) 14 Days Qty: 42 0RF (DME) lancets Misc See Rx Instructions .Route Qty: 100 0RF Rx Instructions: 1 tid aspirin 81 mg tablet,delayed release (DR/EC) 81 mg PO QAM Qty: 30 4RF tobramycin-dexamethasone 0.3-0.1 % drops,suspension 1 drp ophthalmic (eye) QID Rx Instructions: RIGHT EYE isosorbide mononitrate 60 mg tablet extended release 24 hr 30 mg PO QPM Qty: 90 3RF metformin 500 mg tablet 500 mg PO BID cilostazol 50 mg Tablet 50 mg PO BID levetiracetam 500 mg Tablet 500 mg PO BID Changed insulin glargine [Basaglar KwikPen U-100 Insulin] 100 unit/mL (3 mL) insulin pen 10 unit SUBCUT DAILY Qty: 15 0RF Discontinued sulfamethoxazole-trimethoprim [Bactrim DS] 800-160 mg tablet 1 tab PO BID 7 Days Qty: 14 0RF linezolid 600 mg tablet 600 mg PO BID 14 Days Qty: 28 0RF Discharge Orders: Discharge Order (Routine); Ordered 07/25/24 Ordered By: Kehinde Cruz Other Ambulatory Orders: DME: Commode (Order) Location: None Selected Ordered By: Luis Butt DME: Wheelchair (Order) Location: None Selected Ordered By: Luis Butt Referrals: Laurel Eagle MD [Primary Care Provider] - (We have notified your physician's clinic of the need for a follow-up appointment to be scheduled. If you have not heard from them within the next 2 business days, please call them directly. ) Discharge Diet: Cardiac Discharge Activity: Wheelchair as instructed Patient Instructions: Sulfamethoxazole/Trimethoprim (By mouth) (Bactrim, Bactrim DS,..., Morphine, Rapid Release (By mouth), Linezolid (By mouth) (Zyvox), Acute Wound Care (DC), Opioid Safety, Post Anesthesia Care Activity Restrictions/Additional Instructions: Orders from Dr. Butt -Please keep your current dressings clean, dry and intact until your follow-up visit scheduled in podiatry clinic with Dr. Butt this 07/27/2024 at 12:30 PM -Please remain nonweightbearing to your left and right foot you may put pressure on your heel for short transfers only, otherwise rest and elevate for the next 2 weeks -Follow-up in podiatry clinic 07/27/2024 12:30 PM this Tuesday this will be your first dressing change. -Pain medication sent to [facility] hydrocodone 5/325 mg to be taken every 6 hours as needed for pain, please use judiciously. 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
[2024-07-25] MEDS: morphine IR 15 mg Tablet 7.5 MG PO (12:02)
--- NOTE | 2024-07-25 13:34 | PC.NURSE ---
Discussed discharge with patient. Went over restrictions, follow up appointments, new medications, changed medications and stopped medications. Patient verbalized understanding. medications were brought to bedside as well.
== END 2024-07-25 13:40 | disposition home or self-care (01) | DRG 617 ==
LOC: ER 16:08 → MEDSURG 18:33
PROVIDERS: Physician Assistant; Podiatrist Foot & Ankle Surgery; Admitting Provider Family Medicine; Emergency Provider Emergency Medicine; PCP Family Medicine; Visit Provider Family Medicine
PROC: 0Y6Q0Z0 Detachment at Left 1st Toe, Complete, Open Approach (ICD-10-PCS; principal; 2024-07-24 13:00)
DX: E11.621 Type 2 diabetes mellitus with foot ulcer (principal); I50.30 Unspecified diastolic (congestive) heart failure; L03.115 Cellulitis of right lower limb; M86.671 Other chronic osteomyelitis, right ankle and foot; N39.0 Urinary tract infection, site not specified; E11.69 Type 2 diabetes mellitus with other specified complication; E11.51 Type 2 diabetes mellitus with diabetic peripheral angiopathy without gangrene; E11.42 Type 2 diabetes mellitus with diabetic polyneuropathy; L97.524 Non-pressure chronic ulcer of other part of left foot with necrosis of bone; I25.10 Atherosclerotic heart disease of native coronary artery without angina pectoris; F32.A Depression, unspecified; M06.9 Rheumatoid arthritis, unspecified; J44.9 Chronic obstructive pulmonary disease, unspecified; G40.909 Epilepsy, unspecified, not intractable, without status epilepticus; I11.0 Hypertensive heart disease with heart failure; E78.5 Hyperlipidemia, unspecified; M20.41 Other hammer toe(s) (acquired), right foot; E11.649 Type 2 diabetes mellitus with hypoglycemia without coma; Z88.5 Allergy status to narcotic agent; Z79.82 Long term (current) use of aspirin; Z79.02 Long term (current) use of antithrombotics/antiplatelets; Z86.73 Personal history of transient ischemic attack (TIA), and cerebral infarction without residual deficits; I25.2 Old myocardial infarction; Z79.85 Long-term (current) use of injectable non-insulin antidiabetic drugs; Z79.4 Long term (current) use of insulin; Z79.84 Long term (current) use of oral hypoglycemic drugs
CPT/HCPCS: 36415; 36416; 73630; 74176; 76770; 80048; 80053; 81001; 82962; 83036; 83605; 83880; 84145; 84443; 85007; 85025; 85651; 86140; 87040; 87077; 87086; 87186; 88305; 88311; 93971; 94664; 96365; 96367; 96372; 96375; 99213; 99285; J0692; J1650; J1815; J2020; J2185; J2270; J2405; J2470; J2704; J3370; J3490; J7030; J7050

== ENCOUNTER → 2024-07-27 12:30 | Outpatient (BNVA) | payer MEDICARE, MEDICAID, SELFPAY | PROVIDERS: PCP Family Medicine; Visit Provider Podiatrist Foot & Ankle Surgery | DX: E11.43 Type 2 diabetes mellitus with diabetic autonomic (poly)neuropathy (principal); I73.9 Peripheral vascular disease, unspecified; L97.524 Non-pressure chronic ulcer of other part of left foot with necrosis of bone; L97.513 Non-pressure chronic ulcer of other part of right foot with necrosis of muscle; E11.621 Type 2 diabetes mellitus with foot ulcer; Z79.84 Long term (current) use of oral hypoglycemic drugs; Z79.4 Long term (current) use of insulin | CPT/HCPCS: 99213 ==

== ENCOUNTER → 2024-08-02 07:45 | Outpatient (BNVA) | payer MEDICARE, MEDICAID, SELFPAY | PROVIDERS: PCP Family Medicine; Visit Provider Podiatrist Foot & Ankle Surgery | DX: E11.43 Type 2 diabetes mellitus with diabetic autonomic (poly)neuropathy; I73.9 Peripheral vascular disease, unspecified; Z89.412 Acquired absence of left great toe; Z89.421 Acquired absence of other right toe(s); Z79.84 Long term (current) use of oral hypoglycemic drugs; Z79.4 Long term (current) use of insulin | CPT/HCPCS: 99213 ==

== ENCOUNTER → 2024-08-09 15:30 | Outpatient (BNVA) | payer MEDICARE, MEDICAID, SELFPAY | PROVIDERS: PCP Family Medicine; Visit Provider Podiatrist Foot & Ankle Surgery | DX: E11.43 Type 2 diabetes mellitus with diabetic autonomic (poly)neuropathy (principal); I73.9 Peripheral vascular disease, unspecified; Z79.84 Long term (current) use of oral hypoglycemic drugs; Z89.412 Acquired absence of left great toe; Z89.421 Acquired absence of other right toe(s) | CPT/HCPCS: 99213 ==

== ENCOUNTER → 2024-08-16 14:17 | Outpatient (BNVA) | payer MEDICARE, MEDICAID, SELFPAY | PROVIDERS: PCP Family Medicine; Visit Provider Podiatrist Foot & Ankle Surgery | DX: E11.43 Type 2 diabetes mellitus with diabetic autonomic (poly)neuropathy (principal); I73.9 Peripheral vascular disease, unspecified; Z89.412 Acquired absence of left great toe; Z89.421 Acquired absence of other right toe(s); Z79.84 Long term (current) use of oral hypoglycemic drugs; Z79.4 Long term (current) use of insulin | CPT/HCPCS: 99213 ==

== ENCOUNTER → 2024-09-10 07:15 | Outpatient (BNVA) | payer MEDICARE, MEDICAID, SELFPAY | PROVIDERS: PCP Family Medicine; Visit Provider Podiatrist Foot & Ankle Surgery | DX: Z89.411 Acquired absence of right great toe (principal); Z89.412 Acquired absence of left great toe; E11.42 Type 2 diabetes mellitus with diabetic polyneuropathy | CPT/HCPCS: 99213 ==

== ENCOUNTER → 2024-10-25 11:05 | Outpatient (BNVA) | payer MEDICARE, MEDICAID, SELFPAY | PROVIDERS: PCP Family Medicine; Visit Provider Internal Medicine | DX: I11.0 Hypertensive heart disease with heart failure (principal); I50.30 Unspecified diastolic (congestive) heart failure; I95.9 Hypotension, unspecified; D64.9 Anemia, unspecified; R58 Hemorrhage, not elsewhere classified; I65.29 Occlusion and stenosis of unspecified carotid artery; I73.9 Peripheral vascular disease, unspecified; I25.10 Atherosclerotic heart disease of native coronary artery without angina pectoris; E11.65 Type 2 diabetes mellitus with hyperglycemia; J44.9 Chronic obstructive pulmonary disease, unspecified; Z86.73 Personal history of transient ischemic attack (TIA), and cerebral infarction without residual deficits; F17.290 Nicotine dependence, other tobacco product, uncomplicated; Z79.4 Long term (current) use of insulin | CPT/HCPCS: 99214 ==

== ENCOUNTER 2024-10-27 08:28 | Emergency (ER) | payer MEDICARE, MEDICAID, SELFPAY ==
[2024-10-27 08:30] VITALS: BP 162/93; PULSE 108; RESP 17; TEMP 36.7; O2SAT 98; BMI 32.3
--- NOTE | 2024-10-27 08:34 | XRR_ITS ---
PROCEDURE INFORMATION: Exam: XR Left Foot Exam date and time: 10/27/2024 8:43 AM Age: 59 years old Clinical indication: Pain; Toes; Left; Prior surgery; Surgery date: 6+ months; Surgery type: Amputation great toe; Additional info: Toe pain TECHNIQUE: Imaging protocol: Radiologic exam of the left foot. Views: 3 or more views. COMPARISON: CR XR foot LT min 3V* [id number] 07/23/2024 3:19 PM FINDINGS: Bones/joints: Status post amputation of the great toe. Cortical irregularity along the distal 2nd phalanx with soft tissue swelling . Degenerative changes throughout the Lisfranc joint Soft tissues: See Bones/joints finding. XR/XR foot LT min 3V* [id number] IMPRESSION: Cortical irregularity along the distal 2nd phalanx with soft tissue swelling. Suspicious for developing infectious process. Close follow-up recommended.
[2024-10-27 08:43] VITALS: BP 162/93; O2SAT 96
[2024-10-27 08:51] LABS: Basophils # 0.1 10^3/uL (0.0-0.1); Eosinophils # 0.8 10^3/uL (0.0-0.8); Eosinophils % 6.2 %; Hematocrit 39.8 % (36-47); Lymphocytes # 4.3 10^3/uL (0.8-4.8); Lymphocytes % 33.8 %; Mean Corpuscular HGB Conc 30.9 g/dL (30-55); Mean Corpuscular Hemoglobin 22.6 pg (27-33); Mean Platelet Volume 8.9 fL (7.4-10.4); Monocytes # 1.1 10^3/uL (0.2-0.9); Monocytes % 8.4 %; Neutrophils # 6.38 10^3/uL (1.8-7.7); Neutrophils % 49.7 %; Nucleated Red Blood Cells % 0 %; Platelet Count 566 10^3/cmm (157-399); Red Blood Count 5.45 10^6/uL (3.85-5.65); Red Cell Distribution Width 17.6 % (12.1-15.1)
--- NOTE | 2024-10-27 08:56 | W.ED.WOUNDLC ---
HPI - Wound/Laceration General: Chief Complaint: Wound/Laceration Stated Complaint: possible infection in 2nd toe L foot Time Seen by Provider: 10/27/24 08:29 History of Present Illness: 59-year-old female presents emergency room concerned about a left second toe infection at the tip of the toe underneath remaining nail it is red and mildly inflamed there is no drainage. She has had all of her toes amputated on her right foot and the left great toe has been amputated as well. Patient is diabetic. She is not currently on antibiotics. Associated symptoms: Denies chills or fever(s) Related Data Home Medications Medication Instructions Recorded Confirmed cilostazol 50 mg tablet 50 mg PO BID 04/06/24 10/27/24 metformin 500 mg tablet 500 mg PO BID 07/24/24 10/27/24 furosemide 40 mg tablet 40 mg PO DAILY Edema 10/25/24 10/27/24 gabapentin 300 mg capsule 300 mg PO TID 10/25/24 10/27/24 insulin glargine 100 unit/mL (3 25 unit SUBCUT BID 10/25/24 10/27/24 mL) subcutaneous pen (Lantus Solostar U-100 Insulin) oxybutynin chloride 10 mg 20 mg PO DAILY 10/25/24 10/27/24 tablet,extended release 24 hr sulfamethoxazole 800 1 tab PO BID 10/25/24 10/27/24 mg-trimethoprim 160 mg tablet (Bactrim DS) varenicline 1 mg tablet 1 mg PO BID 10/25/24 10/27/24 dulaglutide 1.5 mg/0.5 mL 1.5 mg SUBCUT Q7D 10/27/24 10/27/24 subcutaneous pen injector (Trulicity) Previous Rx's Medication Instructions Recorded blood sugar diagnostic (Blood #50 ea 08/10/23 Glucose Test strips) lancets #100 ea 11/28/23 pantoprazole 40 mg tablet,delayed 40 mg PO QAM #90 tabs 01/09/24 release albuterol sulfate 90 mcg/actuation 2 puff inhalation Q6H PRN 01/10/24 aerosol inhaler shortness of breath or wheezing #8.5 grams blood sugar diagnostic (Blood #100 ea 01/10/24 Glucose Test strips) blood-glucose meter #1 ea 01/10/24 aspirin 81 mg tablet,delayed 81 mg PO QAM #30 tabs 03/20/24 release cyclobenzaprine 10 mg tablet 10 mg PO TID PRN Muscle Spasm #90 04/16/24 tabs dulaglutide 0.75 mg/0.5 mL 0.75 mg (0.5 mL) SUBCUT Q7D #1 mL 04/16/24 subcutaneous pen injector duloxetine 60 mg capsule,delayed 60 mg PO DAILY #30 caps 04/16/24 release empagliflozin 25 mg tablet 25 mg PO DAILY #30 tabs 04/16/24 (Jardiance) epinephrine 0.3 mg/0.3 mL 0.3 mg (0.3 mL) IM Q4H PRN 04/16/24 injection, auto-injector (EpiPen anaphylaxis #2 ea 2-Pankaj) ezetimibe 10 mg tablet 10 mg PO DAILY #30 tabs 04/16/24 hydroxyzine HCl 25 mg tablet 25 mg PO Q6H PRN itching #20 tabs 04/16/24 losartan 50 mg tablet 50 mg PO DAILY@0800 #30 tabs 04/16/24 nitroglycerin 0.4 mg sublingual 0.4 mg sublingual Q5M PRN Chest 04/16/24 tablet (Nitrostat) Pain #30 tabs pen needle, diabetic 31 gauge x #100 ea 04/16/2403/01 (Comfort EZ Pen [place]) pen needle, diabetic 32 gauge x #100 ea 04/16/24 (Comfort EZ Pen [place]) quetiapine 200 mg tablet 200 mg PO BEDTIME #30 tabs 04/16/24 ticagrelor 90 mg tablet (Brilinta) 90 mg PO BID #180 tabs 04/16/24 tiotropium bromide 18 mcg capsule 1 cap inhalation DAILY copd 30 04/16/24 with inhalation device (Spiriva days #30 inhalations with HandiHaler) Wheel chair #1 ea 07/19/24 Diabetic shoes with 3 sets of #1 ea 08/09/24 insoles and toe filler to right Allergies Allergy/AdvReac Type Severity Reaction Status Date / Time doxycycline Allergy Mild ADR-Photose Verified 10/25/24 11:32 nsitivity fentanyl Allergy Unknown ALGY-Difficulty Verified 10/25/24 11:32 Breathing adhesive Allergy Unknown Verified 10/25/24 11:32 codeine Allergy Unknown Verified 10/25/24 11:32 hydrocodone Allergy ADR-Itching Verified 10/25/24 11:32 latex Allergy ALGY-Swell Verified 10/25/24 11:32 Lip/Tongue/Throat naproxen [From Naprosyn] Allergy Unknown Verified 10/25/24 11:32 nut - unspecified Allergy ALGY-Anaphy Verified 10/25/24 11:32 laxis oxycodone [From Roxicodone] Allergy ADR-Muscle Verified 10/25/24 11:32 Pain Penicillins Allergy Unknown Verified 10/25/24 11:32 tramadol Allergy ADR-Itching Verified 10/25/24 11:32 Review of Systems Const: Denies: fever(s) or chills Card: Denies: chest pain Resp: Denies: dyspnea GI: Denies: abdominal pain : Denies: dysuria, urinary frequency or urinary urgency Musc: Denies: neck pain or back pain Skin/Breast: Denies: rash PFSH ED PFSH: Medical History Thrombocytosis, unspecified Diabetes Cellulitis PAD (peripheral artery disease) Essential hypertension Depression Anemia 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 COPD (chronic obstructive pulmonary disease) Hypersensitivity pneumonitis Rheumatoid arthritis Infection of total left knee replacement Right wrist deformity History of stroke Acute exacerbation of chronic obstructive pulmonary disease (COPD) Acute encephalopathy Acute respiratory failure with hypoxia Acute alteration in mental status Sepsis Diabetes Sacral pressure ulcer Cellulitis of gluteal region Seizure disorder Hypoxemia Seizure UTI (urinary tract infection) Chronic, continuous use of opioids Seizures Acute and chronic respiratory failure with hypoxia Pneumonia Pneumonia Acute hypoxemic respiratory failure Stenosis of left internal carotid artery with cerebral infarction Diabetic foot ulcer Right arm weakness Hoarseness of voice Sepsis Numbness and tingling in both hands Urinary tract infection Chest pain Syncope Needs flu shot Carpal tunnel syndrome, right Urinary incontinence Chronic knee pain Abnormal stress test CAD (coronary artery disease) Acute exacerbation of CHF (congestive heart failure) Unstable angina COPD exacerbation Exposure to COVID-19 virus Compression fracture of L2 lumbar vertebra Right hip pain Dyspnea (HFpEF) heart failure with preserved ejection fraction Candidiasis of vagina History of CVA (cerebrovascular accident) Elevated troponin Pericardial effusion Pressure ulcer Prosthetic joint infection Septic arthritis of knee, left Osteoarthritis of left knee History of hypoglycemic coma Obesity (BMI 35.0-39.9 without comorbidity) Peripheral sensory neuropathy due to type 2 diabetes mellitus Coronary artery disease due to type 2 diabetes mellitus Diabetes type 2, uncontrolled Neuropathy Insomnia Fibromyalgia, primary Hyperlipidemia, mixed CVA (cerebral vascular accident) Dyslipidemia Leukocytosis NSTEMI (non-ST elevated myocardial infarction) Thought to be secondary to plaque rupture. Angiogram July 04 no flow-limiting lesions, or restenosis of previous stent from April 2020 Chronic obstructive pulmonary disease, unspecified Vitamin D deficiency Type 2 diabetes mellitus with diabetic autonomic (poly)neuropathy Essential hypertension Encounter for long-term opiate analgesic use Opioid contract exists Current every day smoker Chronic pain of left knee Low back pain radiating to both legs Intervertebral disc disorder of lumbar region with myelopathy Lumbosacral spondylosis without myelopathy Osteoarthritis of spine at multiple levels Chronic left-sided low back pain Surgical History Status post left knee replacement History of coronary angiogram Angiogram April 2020 with 90% circumflex lesion, drug-eluting stent placed by Dr. Jerome Status post lumbar laminectomy S/P lumbar fusion DR. Shreya ZAYAS IN [employer], [place] L4-L5, L5-S1 S/p bilateral carpal tunnel release History of arthroscopic surgery of elbow BILATERAL S/P hysterectomy S/P knee surgery RIGHT Family History Other CAD (coronary artery disease) Cancer Diabetes Social History Smoking and tobacco/nicotine status: never used tobacco/nicotine Alcohol intake: former Substance/Drug Use: never Caregiver/support person: Yes Lives independently: No Housing: Skilled Nursing Marital status: Unknown Marital status details: She and son state she is not service: No Current occupational status: unemployed Pets and animals: Yes Do you think of yourself as: Straight/Heterosexual Current gender identity: Female Physical Exam Const: COMMON NORMALS: no acute distress GENERAL APPEARANCE: cooperative and comfortable ORIENTATION/CONSCIOUSNESS: Yes awake, Yes oriented to person, Yes oriented to place and Yes oriented to time HENMT: COMMON NORMALS: normocephalic, atraumatic and hearing grossly normal bilaterally HEAD & SCALP: normocephalic and atraumatic Resp: COMMON NORMALS: normal respiratory effort, No retractions, No use of accessory muscles and clear to auscultation bilaterally AUSCULTATION: clear to auscultation bilaterally Cardio: COMMON NORMALS: regular rate, regular rhythm and No murmurs present (Cardio) RATE: regular rate RHYTHM: regular rhythm GI: COMMON NORMALS: Soft to palpation and No hepatosplenomegaly present AUSCULTATION: Yes normoactive bowel sounds PALPATION: Yes Soft to palpation, No Tenderness to palpation present (GI), No Guarding due to palpation present (GI) and Yes No hepatosplenomegaly present Extremity: COMMON NORMALS: normal to inspection, capillary refill normal, no clubbing, cyanosis or edema, no calf tenderness and no pedal edema Neuro: SENSORIUM/ORIENTATION: Yes oriented to person, Yes oriented to place and Yes oriented to time Skin: COMMON NORMALS: no rashes or lesions noted GENERAL SKIN EXAM: no rashes or lesions noted Course Vital Signs: Vital signs: Vital Signs Temperature 98.0 F 10/27/24 08:30 Pulse Rate 97 10/27/24 09:49 Respiratory Rate 17 10/27/24 08:30 Blood Pressure 184/78 10/27/24 09:49 Pulse Oximetry 98 10/27/24 09:49 Oxygen Delivery Me thod Room Air 10/27/24 08:30 MDM - Wound/Laceration Medical Decision Making White count of 12 8 patient seen infectious he is on Bactrim and doxycycline was started a few days ago recommend she continue that. On the imaging today is a question of osteomyelitis on the second toe. At this point since she is already been started on antibiotics continue dose and follow-up with infectious disease physician. Lab Data 10/27/24 08:45 10/27/24 08:45 Radiology Impressions Foot X-Ray 10/27/24 08:34 IMPRESSION: Cortical irregularity along the distal 2nd phalanx with soft tissue swelling. Suspicious for developing infectious process. Close follow-up recommended. Laboratory Results WBC 12.80 10^3/uL (3.29-11.43) H 10/27/24 08:45 RBC 5.45 10^6/uL (3.85-5.65) 10/27/24 08:45 Hgb 12.30 g/dL (11.27-16.99) 10/27/24 08:45 Hct 39.8 % (36-47) 10/27/24 08:45 MCV 73.0 fl (85-98) L 10/27/24 08:45 MCH 22.6 pg (27-33) L 10/27/24 08:45 MCHC 30.9 g/dL (30-55) 10/27/24 08:45 RDW 17.6 % (12.1-15.1) H 10/27/24 08:45 Plt Count 566 10^3/cmm (157-399) H 10/27/24 08:45 MPV 8.9 fL (7.4-10.4) 10/27/24 08:45 Neut % (Auto) 49.7 % 10/27/24 08:45 Lymph % (Auto) 33.8 % 10/27/24 08:45 [place] % (Auto) 8.4 % 10/27/24 08:45 Eos % (Auto) 6.2 % 10/27/24 08:45 Baso % (Auto) 1.0 % 10/27/24 08:45 Neut # (Auto) 6.38 10^3/uL (1.8-7.7) 10/27/24 08:45 Lymph # (Auto) 4.3 10^3/uL (0.8-4.8) 10/27/24 08:45 [place] # (Auto) 1.1 10^3/uL (0.2-0.9) H 10/27/24 08:45 Eos # (Auto) 0.8 10^3/uL (0.0-0.8) 10/27/24 08:45 Baso # (Auto) 0.1 10^3/uL (0.0-0.1) 10/27/24 08:45 Nucleated RBC % (auto) 0 % 10/27/24 08:45 Nucleated RBCs # 0.0 /100WBC 10/27/24 08:45 Sodium 131 mmol/L (136-145) L 10/27/24 08:45 Potassium 4.3 mmol/L (3.5-5.1) 10/27/24 08:45 Chloride 94 mmol/L (98-107) L 10/27/24 08:45 Carbon Dioxide 21 mmol/L (22-29) L 10/27/24 08:45 Anion Gap 20.3 (5-19) H 10/27/24 08:45 BUN 19 mg/dL (6-20) 10/27/24 08:45 Creatinine 0.8 mg/dL (0.5-0.9) 10/27/24 08:45 GFR Calculation 73.9 mL/min (90-130) L 10/27/24 08:45 Glucose 354 mg/dL (65-115) H 10/27/24 08:45 Calculated Osmolality 288 mOsm/kg (285-295) 10/27/24 08:45 Calcium 9.7 mg/dL (8.5-10.5) 10/27/24 08:45 Total Bilirubin 0.2 mg/dL (0.15-1.2) 10/27/24 08:45 AST 8 U/L (0-32) 10/27/24 08:45 ALT 11 U/L (0-33) 10/27/24 08:45 Alkaline Phosphatase 130 U/L (35-105) H 10/27/24 08:45 C-Reactive Protein 4.7 mg/L (0.0-4.9) 10/27/24 08:45 Total Protein 7.0 g/dL (6.6-8.7) 10/27/24 08:45 Albumin 3.9 g/dL (3.5-5.2) 10/27/24 08:45 Globulin 3.1 g/dL (1.3-4.6) 10/27/24 08:45 All radiology interpretation(s) finalized by discharge Discharge Plan Discharge Patient Disposition: Home Clinical Impression: Cellulitis Qualifiers: Site of cellulitis: extremity Site of cellulitis of extremity: lower extremity Laterality: left Qualified Code(s): L03.116 - Cellulitis of left lower limb Condition: Stable Prescriptions: No Action (DME) Blood Glucose Test Strip See Rx Instructions .Route Qty: 100 0RF Rx Instructions: tid ac meals albuterol sulfate 90 mcg/actuation HFA aerosol inhaler 2 puff inhalation Q6H PRN (Reason: shortness of breath or wheezing) Qty: 8.5 3RF (DME) blood-glucose meter Misc See Rx Instructions .Route Qty: 1 0RF Rx Instructions: dailyAs directed cyclobenzaprine 10 mg tablet 10 mg PO TID PRN (Reason: Muscle Spasm) Qty: 90 3RF dulaglutide 0.75 mg/0.5 mL pen injector 0.75 mg SUBCUT Q7D Qty: 1 3RF Rx Instructions: ON TUESDAY duloxetine 60 mg capsule,delayed release(DR/EC) 60 mg PO DAILY Qty: 30 4RF Jardiance 25 mg tablet 25 mg PO DAILY Qty: 30 4RF Rx Instructions: 340 b ezetimibe 10 mg tablet 10 mg PO DAILY Qty: 30 4RF hydroxyzine HCl 25 mg tablet 25 mg PO Q6H PRN (Reason: itching) Qty: 20 0RF losartan 50 mg tablet 50 mg PO DAILY@0800 Qty: 30 4RF nitroglycerin [Nitrostat] 0.4 mg tablet, sublingual 0.4 mg SUBLINGUAL Q5M PRN (Reason: Chest Pain) Qty: 30 4RF Rx Instructions: do not exceed 3 doses per episode (DME) pen needle, diabetic [Comfort EZ Pen [place]] 32 gauge x 5/32 needle See Rx Instructions .Route Qty: 100 2RF Rx Instructions: use 3times a day to inject insulin. (DME) pen needle, diabetic [Comfort EZ Pen [place]] 31 gauge x 5/16 needle See Rx Instructions .Route Qty: 100 6RF Rx Instructions: use daily with levemir quetiapine 200 mg tablet 200 mg PO BEDTIME Qty: 30 4RF Brilinta 90 mg tablet 90 mg PO BID Qty: 180 3RF tiotropium bromide [Spiriva with HandiHaler] 18 mcg capsule, w/inhalation device 1 cap inhalation DAILY 30 Days Qty: 30 3RF epinephrine [EpiPen 2-Pankaj] 0.3 mg/0.3 mL auto-injector 0.3 mg IM Q4H PRN (Reason: anaphylaxis) Qty: 2 0RF (DME) Blood Glucose Test Strip See Rx Instructions .Route Qty: 50 3RF Rx Instructions: As directed accucheck test strips for accu check machine pantoprazole 40 mg tablet,delayed release (DR/EC) 40 mg PO QAM Qty: 90 3RF oxybutynin chloride 10 mg tablet extended release 24hr 20 mg PO DAILY gabapentin 300 mg capsule 300 mg PO TID varenicline 1 mg tablet 1 mg PO BID insulin glargine [Lantus Solostar U-100 Insulin] 100 unit/mL (3 mL) insulin pen 25 unit SUBCUT BID furosemide 40 mg tablet 40 mg PO DAILY sulfamethoxazole-trimethoprim [Bactrim DS] 800-160 mg tablet 1 tab PO BID (DME) Wheel chair See Rx Instructions .Route .MEDSUPPLY Qty: 1 0RF Rx Instructions: As directed (DME) Diabetic shoes with 3 sets of insoles and toe filler to right See Rx Instructions .Route .MEDSUPPLY Qty: 1 0RF Rx Instructions: As directed (DME) lancets Misc See Rx Instructions .Route Qty: 100 0RF Rx Instructions: 1 tid aspirin 81 mg tablet,delayed release (DR/EC) 81 mg PO QAM Qty: 30 4RF metformin 500 mg tablet 500 mg PO BID cilostazol 50 mg Tablet 50 mg PO BID Trulicity 1.5 mg/0.5 mL pen injector 1.5 mg SUBCUT Q7D Discharge Orders: Discharge ED (Routine); Ordered 10/27/24 Ordered By: Luis Hewitt Referrals: Laurel Eagle MD [Primary Care Provider] - Discharge Diet: Usual diet Discharge Activity: Resume usual activity Patient Instructions: Opioid Safety, Pain Management Activity Restrictions/Additional Instructions: Thank you for choosing [facility] for your healthcare needs today. It is very important that you follow up as instructed or that you return to the Emergency Department should you have concerns or if your condition changes or worsens in any way. You were seen in the emergency room for concern of infection in your toe. X-ray does not show any signs of bone involvement at this time. Recommend that you continue the antibiotics and infectious disease started you on a few days ago. 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
[2024-10-27 09:09] LABS: Alanine Aminotransferase 11 U/L (0-33); Albumin Level 3.9 g/dL (3.5-5.2); Alkaline Phosphatase 130 U/L (35-105); Anion Gap 20.3 (5-19); Aspartate Amino Transferase 8 U/L (0-32); Blood Urea Nitrogen 19 mg/dL (6-20); Calcium 9.7 mg/dL (8.5-10.5); Carbon Dioxide 21 mmol/L (22-29); Chloride 94 mmol/L (98-107); Creatinine Clr Calc Pharmacy 88.0248; Globulin 3.1 g/dL (1.3-4.6); Glomerular Filtration Rate 73.9 mL/min (90-130); Glucose 354 mg/dL (65-115); Osmolality Calculated 288 mOsm/kg (285-295); Potassium 4.3 mmol/L (3.5-5.1); Sodium 131 mmol/L (136-145); Total Bilirubin 0.2 mg/dL (0.15-1.2)
[2024-10-27 09:15] LABS: C Reactive Protein 4.7 mg/L (0.0-4.9)
[2024-10-27 09:49] VITALS: BP 184/78; PULSE 97; O2SAT 98
--- NOTE | 2024-10-27 09:50 | PC.NURSE ---
ED [facility] setting up ride home for pt. pt waiting in ED WR
== END 2024-10-27 09:51 | disposition home or self-care (01) ==
PROVIDERS: Emergency Provider Family Medicine; PCP Family Medicine
DX: L03.116 Cellulitis of left lower limb (principal); Z79.4 Long term (current) use of insulin; Z79.82 Long term (current) use of aspirin; Z79.84 Long term (current) use of oral hypoglycemic drugs; E11.43 Type 2 diabetes mellitus with diabetic autonomic (poly)neuropathy; Z86.73 Personal history of transient ischemic attack (TIA), and cerebral infarction without residual deficits; J44.9 Chronic obstructive pulmonary disease, unspecified; I25.10 Atherosclerotic heart disease of native coronary artery without angina pectoris; I50.30 Unspecified diastolic (congestive) heart failure
CPT/HCPCS: 36415; 73630; 80053; 85025; 86140; 99284

== ENCOUNTER → 2024-11-06 07:39 | Outpatient (BNVA) | payer MEDICARE, MEDICAID, SELFPAY | PROVIDERS: PCP Family Medicine; Visit Provider Podiatrist Foot & Ankle Surgery | DX: E11.621 Type 2 diabetes mellitus with foot ulcer; L97.524 Non-pressure chronic ulcer of other part of left foot with necrosis of bone; Z89.411 Acquired absence of right great toe; Z89.412 Acquired absence of left great toe; E11.42 Type 2 diabetes mellitus with diabetic polyneuropathy; M24.572 Contracture, left ankle; Z79.84 Long term (current) use of oral hypoglycemic drugs; Z79.4 Long term (current) use of insulin | CPT/HCPCS: 11044; 87070; 87075; 87205; 99214 ==

== ENCOUNTER 2024-11-09 07:45 | Day surgery (SDC) | payer MEDICARE, MEDICAID, SELFPAY ==
[2024-11-09] VITALS (8 sets, daily range): BP systolic 112–152; BP diastolic 62–98; PULSE 90–102; RESP 16–18; TEMP 36.1–36.8; O2SAT 91–95
--- NOTE | 2024-11-09 08:07 | W.PM.OPSUD ---
Surgery/Procedure H&P Update DATE OF PROCEDURE: November 09, 2024 DATE H&P PERFORMED: 11/06/24 H&P UPDATE INFORMATION: I have reviewed H&P completed within last 30 days, I have examined patient prior to procedure, No changes to prior documentation and H&P is in [facility] [place] [place] EMR on date indicated PREOP DIAGNOSIS: Osteomyelitis left foot PLANNED PROCEDURE: Operation Date: 11/09/24 08:10 Proposed Procedures p second toe amputation, third toe amputation, fourth toe amputation, fifth toe amputation(Left) - Luis Butt DPM s Left Achilles lengthening.(Left) - Luis Butt DPM
--- NOTE | 2024-11-09 08:08 | ANES.PREANE2 ---
Pre-Anesthetic Assessment Height/Weight: Height 1.68 m Weight 81.647 kg O2 Del Method Room Air 11/09/24 07:57 Preop Diagnosis: Osteomyelitis left foot Operation Date: 11/09/24 08:10 Proposed Procedures p second toe amputation, third toe amputation, fourth toe amputation, fifth toe amputation(Left) - Luis Butt DPM s Left Achilles lengthening.(Left) - Luis Butt DPM Familial anesthetic complications: None Was Beta Jose L taken within 24 hours: N/A Was Clonidine taken within 24 hours: N/A Last intake: Intake Last Liquid Date 11/08/24 Last Liquid Time 21:00 Last Solid Date 11/08/24 Last Solid Time 19:00 Social Tobacco and No alcohol Exam alert, oriented x 3, clear to auscultation bilaterally and regular rate & rhythm Airway Dentition: other (no teeth) Pulmonary Asthma and Chronic Obstructive Pulmonary Disease CV/HEM Coronary Artery Disease and Hypertension Metabolic Diabetes Mellitus Neuropsych Cerebrovascular Accident and Seizure Anesthetic Plan ASA status: 4 Anesthesia: MAC Risk of > 500 ml blood loss (7ml/kg in children): No Medications/Allergies Home Medications Medication Instructions Recorded Confirmed Last Taken Type blood sugar diagnostic (Blood #50 ea 08/10/23 11/06/24 Unknown Rx Glucose Test strips) lancets #100 ea 11/28/23 11/06/24 Unknown Rx pantoprazole 40 mg tablet,delayed 40 mg PO QAM #90 tabs 01/09/24 11/08/24 11/08/24 Rx release albuterol sulfate 90 mcg/actuation 2 puff inhalation Q6H PRN 01/10/24 11/08/24 11/06/24 Rx aerosol inhaler shortness of breath or wheezing #8.5 grams blood sugar diagnostic (Blood #100 ea 01/10/24 11/06/24 Unknown Rx Glucose Test strips) blood-glucose meter #1 ea 01/10/24 11/06/24 Unknown Rx aspirin 81 mg tablet,delayed 81 mg PO QAM #30 tabs 03/20/24 11/08/24 11/08/24 Rx release cilostazol 50 mg tablet 50 mg PO BID 04/06/24 11/08/24 11/08/24 History cyclobenzaprine 10 mg tablet 10 mg PO TID PRN Muscle Spasm #90 04/16/24 11/08/24 11/07/24 Rx tabs duloxetine 60 mg capsule,delayed 60 mg PO DAILY #30 caps 04/16/24 11/08/24 11/08/24 Rx release empagliflozin 25 mg tablet 25 mg PO DAILY #30 tabs 04/16/24 11/08/24 11/07/24 Rx (Jardiance) epinephrine 0.3 mg/0.3 mL 0.3 mg (0.3 mL) IM Q4H PRN 04/16/24 11/08/24 07/23/24 Rx injection, auto-injector (EpiPen anaphylaxis #2 ea 2-Pankaj) ezetimibe 10 mg tablet 10 mg PO DAILY #30 tabs 04/16/24 11/08/24 11/08/24 Rx hydroxyzine HCl 25 mg tablet 25 mg PO Q6H PRN itching #20 tabs 04/16/24 11/08/24 11/07/24 Rx losartan 50 mg tablet 50 mg PO DAILY@0800 #30 tabs 04/16/24 11/08/24 11/08/24 Rx nitroglycerin 0.4 mg sublingual 0.4 mg sublingual Q5M PRN Chest 04/16/24 11/08/24 10/26/24 Rx tablet (Nitrostat) Pain #30 tabs pen needle, diabetic 31 gauge x #100 ea 04/16/24 11/06/24 Unknown Rx 5/16 (Comfort EZ Pen [place]) pen needle, diabetic 32 gauge x #100 ea 04/16/24 11/06/24 Unknown Rx 5/32 (Comfort EZ Pen [place]) quetiapine 200 mg tablet 200 mg PO BEDTIME #30 tabs 04/16/24 11/08/24 11/07/24 Rx ticagrelor 90 mg tablet (Brilinta) 90 mg PO BID #180 tabs 04/16/24 11/08/24 11/08/24 Rx tiotropium bromide 18 mcg capsule 1 cap inhalation DAILY copd 30 04/16/24 11/08/24 11/08/24 Rx with inhalation device (Spiriva days #30 inhalations with HandiHaler) Wheel chair #1 ea 07/19/24 11/06/24 Unknown Rx metformin 500 mg tablet 500 mg PO BID 07/24/24 11/08/24 11/07/24 History Diabetic shoes with 3 sets of #1 ea 08/09/24 11/06/24 Unknown Rx insoles and toe filler to right furosemide 40 mg tablet 40 mg PO PRN Edema 10/25/24 11/08/24 10/26/24 History gabapentin 300 mg capsule 300 mg PO TID 10/25/24 11/08/24 11/08/24 History insulin glargine 100 unit/mL (3 25 unit SUBCUT BID 10/25/24 11/08/24 11/07/24 History mL) subcutaneous pen (Lantus Solostar U-100 Insulin) oxybutynin chloride 10 mg 20 mg PO DAILY 10/25/24 11/08/24 11/08/24 History tablet,extended release 24 hr sulfamethoxazole 800 1 tab PO BID 10/25/24 11/08/24 11/08/24 History mg-trimethoprim 160 mg tablet (Bactrim DS) varenicline 1 mg tablet 1 mg PO BID 10/25/24 11/08/24 11/08/24 History dulaglutide 1.5 mg/0.5 mL 1.5 mg SUBCUT Q7D 10/27/24 11/08/24 11/02/24 History subcutaneous pen injector (Trulicity) oxycodone-acetaminophen 10 mg-325 1 tab PO Q8H PRN pain #21 tabs 11/09/24 Unknown Rx mg tablet (Percocet) Allergies Allergy/AdvReac Type Severity Reaction Status Date / Time doxycycline Allergy Mild ADR-Photose Verified 11/06/24 07:41 nsitivity fentanyl Allergy Unknown ALGY-Difficulty Verified 11/06/24 07:41 Breathing adhesive Allergy Unknown Verified 11/06/24 07:41 codeine Allergy Unknown Verified 11/06/24 07:41 hydrocodone Allergy ADR-Itching Verified 11/06/24 07:41 latex Allergy ALGY-Swell Verified 11/06/24 07:41 Lip/Tongue/Throat naproxen [From Naprosyn] Allergy Unknown Verified 11/06/24 07:41 nut - unspecified Allergy ALGY-Anaphy Verified 11/06/24 07:41 laxis Penicillins Allergy Unknown Verified 11/06/24 07:41 tramadol Allergy ADR-Itching Verified 11/06/24 07:41 [facility] Anesthesia Medical History (Updated 11/06/24 @ 08:12 by Luis Butt, DPM) Hammertoe of left foot Thrombocytosis, unspecified Diabetes Cellulitis PAD (peripheral artery disease) Essential hypertension Depression Anemia 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 COPD (chronic obstructive pulmonary disease) Hypersensitivity pneumonitis Rheumatoid arthritis Infection of total left knee replacement Right wrist deformity History of stroke Acute exacerbation of chronic obstructive pulmonary disease (COPD) Acute encephalopathy Acute respiratory failure with hypoxia Acute alteration in mental status Sepsis Diabetes Sacral pressure ulcer Cellulitis of gluteal region Seizure disorder Hypoxemia Seizure UTI (urinary tract infection) Chronic, continuous use of opioids Seizures Acute and chronic respiratory failure with hypoxia Pneumonia Pneumonia Acute hypoxemic respiratory failure Stenosis of left internal carotid artery with cerebral infarction Diabetic foot ulcer Right arm weakness Hoarseness of voice Sepsis Numbness and tingling in both hands Urinary tract infection Chest pain Syncope Needs flu shot Carpal tunnel syndrome, right Urinary incontinence Chronic knee pain Abnormal stress test CAD (coronary artery disease) Acute exacerbation of CHF (congestive heart failure) Unstable angina COPD exacerbation Exposure to COVID-19 virus Compression fracture of L2 lumbar vertebra Right hip pain Dyspnea (HFpEF) heart failure with preserved ejection fraction Candidiasis of vagina History of CVA (cerebrovascular accident) Elevated troponin Pericardial effusion Pressure ulcer Prosthetic joint infection Septic arthritis of knee, left Osteoarthritis of left knee History of hypoglycemic coma Obesity (BMI 35.0-39.9 without comorbidity) Peripheral sensory neuropathy due to type 2 diabetes mellitus Coronary artery disease due to type 2 diabetes mellitus Diabetes type 2, uncontrolled Neuropathy Insomnia Fibromyalgia, primary Hyperlipidemia, mixed CVA (cerebral vascular accident) Dyslipidemia Leukocytosis NSTEMI (non-ST elevated myocardial infarction) Thought to be secondary to plaque rupture. Angiogram July 04 no flow-limiting lesions, or restenosis of previous stent from April 2020 Chronic obstructive pulmonary disease, unspecified Vitamin D deficiency Type 2 diabetes mellitus with diabetic autonomic (poly)neuropathy Essential hypertension Encounter for long-term opiate analgesic use Opioid contract exists Current every day smoker Chronic pain of left knee Low back pain radiating to both legs Intervertebral disc disorder of lumbar region with myelopathy Lumbosacral spondylosis without myelopathy Osteoarthritis of spine at multiple levels Chronic left-sided low back pain Surgical History Status post left knee replacement History of coronary angiogram Angiogram April 2020 with 90% circumflex lesion, drug-eluting stent placed by Dr. Jerome Status post lumbar laminectomy S/P lumbar fusion DR. Shreya ZAYAS IN [place], [place] L4-L5, L5-S1 S/p bilateral carpal tunnel release History of arthroscopic surgery of elbow BILATERAL S/P hysterectomy S/P knee surgery RIGHT Family History Other CAD (coronary artery disease) Cancer Diabetes Social History Smoking and tobacco/nicotine status: current every day tobacco/nicotine user (vaping) cigarettes Packs smoked per day: 0.5 Years cigarettes smoked: 10 [ Other cigarette details: PER PATIENT REPORT] Alcohol intake: former Substance/Drug Use: never Caregiver/support person: Yes Lives independently: No Housing: Long Term Marital status: Unknown Marital status details: She and son state she is not service: No Current occupational status: unemployed Pets and animals: Yes Do you think of yourself as: Straight/Heterosexual Current gender identity: Female Data Anesthesia Cardiac Studies: Echocardiogram 09/13/21 Echocardiogram Limited Views 10/02/20 Echocardiogram Ultrasound 12/29/20 Sestamibi Stress Test (Cardiology) 06/12/21
[2024-11-09 08:09] LABS: Glucose Point of Care 391 mg/dL (70-110)
[2024-11-09] MEDS: sodium chloride 0.9% 1,000 ML 30 ML (08:09)
[2024-11-09] MEDS: vancomycin 1,500 MG/300 ML PIGGYBACK 200 MG IV (08:12)
[2024-11-09] MEDS: insulin regular-human 100 units/1 mL 10 UNIT IVP ×2 (08:16→09:28)
[2024-11-09] MEDS: BUPivacaine 0.25% INJ 10 mL 20 ML INJECTION (09:01)
[2024-11-09] MEDS: lidocaine 1% 10 ML INJ 20 ML XX (09:01)
--- NOTE | 2024-11-09 09:11 | P.BOP_ITS ---
Date of Procedure: 12/30/23 Surgeon: Luis Butt DPM [employer] Worker(s): Karine Procedure(s) performed: Amputation of left second, third, fourth, fifth toes. Findings of the procedure(s): Osteomyelitis left second toe hammertoe deformities digits 2, 3, 4, 5 all left foot. Estimated blood loss: 10 mL Specimen(s) removed: left second, third, fourth, fifth toe sent to pathology for permanent. Post-operative diagnosis: Osteomyelitis left foot, hammertoe digits 2, 3, 4, 5 left foot
--- NOTE | 2024-11-09 09:12 | PM.OP ---
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 CPT code 12935 2) left third toe amputation. CPT code 90696 3) left fourth toe amputation. CPT code 80353 4) left fifth toe amputation. CPT code 77676 5) left Achilles lengthening. CPT code 62242 Implants: 3-0 Vicryl, 4 nylon Pathology: Left second toe, left third toe, left fourth toe, left fifth toe sent to pathology for permanent Surgeon: Luis Butt DPM Sheet Finisher: Karine Estimated blood loss: 10 mL 8 minutes IV fluids: See intraoperative documentation Urine output: None Complications: No complications Brief History: Diabetic history of left great toe amputation historically she is uncontrolled diabetic with peripheral vascular disease she has a wound with osteomyelitis left second toe and hammertoe deformities of left second toe third toe fourth toe fifth toe due to the history of deformity previous amputation and reoccurring wounds and current active infection she is requesting toes 2 through 5 of the left foot to be amputated. I reviewed at length with the patient, the risks, potential complications, benefits, alternatives, expectations, and typical outcomes associated with the surgery. The risks and potential complications were explained in detail, including but not limited to infection, wound dehiscence or soft tissue complications, bleeding and hematoma, chronic edema, neuritis or nerve damage producing numbness or chronic pain, CRPS, failure to relieve pain or worsening pain, thick / painful / unsightly scar, limited motion / stiffness, malposition, delayed union, malunion, or nonunion, fracture, reaction to implants, anesthetic complications, venous thromboembolism, and deformity recurrence. I discussed the notion of no regrets with the patient as it pertains to complications and outcomes. The patient seemed to understand the nature of the proposed care and required convalescence. They asked appropriate questions, answered to their satisfaction. They are aware no guarantees can be made as to a satisfactory outcome and they understand there may be other possible unforeseen complications or outcomes not listed here that will be treated accordingly if they arise. There were no written or implied guarantees given to the patient. They gave informed consent to proceed. Procedure: Under mild sedation patient was brought to the operating room and remained on the gurney in supine position. A timeout was performed. Anesthesia was then administered by the anesthesia service and local anesthesia injected by myself consisting of a one-to-one mixture 1% lidocaine 0.5% Marcaine plain in a V-block to the posterior calf and second, third, fourth, fifth ray block fashion to the left foot. Well-padded pneumatic tourniquet applied to the left high calf. Left lower extremity was scrubbed, prepped and draped utilizing normal aseptic technique. Tourniquet was inflated to 250 mmHg. Attention was directed to the left Achilles tendon more 1.5 cm proximal to its insertion and a Abdulaziz section was performed with a #15 blade medially and in like fashion 1.5 cm proximal to this a lateral hemisection and following another 1.5 cm proximal to the previous a Abdulaziz section was performed medially this was a triple hemisection of the Achilles tendon spaced out 1.5 cm apart consistent with modified Haralson with significant dorsiflexion appreciated intraoperatively with dorsiflexing the patient's left ankle able to obtain near 10 degrees with obvious lengthening and still intact palpable Achilles tendon incision was irrigated x 3 with saline solution and closed with 4-0 nylon. This was then covered with an OpSite. Attention was then directed to the toes 2, 3, 4, 5 the left foot were each toe was sharply disarticulated amputated at the level the metatarsal phalangeal joint with a #15 blade each toe was passed from the operative field and sent to pathology for permanent. Was able to visualize metatarsal heads 2 through 5 the left foot appeared viable with no remaining devitalized tissue, incisions were irrigated with copious amounts of sterile skin solution and closed in a layered fashion with 2-0 Vicryl reapproximated deep tissue and skin with 4-0 nylon. Incisions were then dressed with Adaptic sterile 4 x 4's, Kerlix and Aaron wrap followed by well-padded multilayer compressive posterior splint. Tourniquet was deflated and a prompt hyperemic response was noted to the amputation remaining distal left forefoot. Patient was transferred to the PACU with vital signs stable and vascular status intact. Following a period of postoperative monitoring she will be discharged home. Patient was given at home care instructions and scheduled follow-up as well as myself number to contact with postoperative questions or concerns.
--- NOTE | 2024-11-09 09:13 | PC.NURSE ---
Blood sugar 323. Notified anesthesia
[2024-11-09 09:26] LABS: Glucose Point of Care 323 mg/dL (70-110)
[2024-11-09 09:56] LABS: Glucose Point of Care 307 mg/dL (70-110)
[2024-11-09] MEDS: oxyCODONE-APAP 10-325 mg Tablet 1 TAB PO (10:02)
--- NOTE | 2024-11-09 10:30 | ANE.PACU2 ---
Inpatient post-anesthesia follow up: Airway intact: Yes Vital signs: Temperature 98.2 F Pulse Rate 96 Respiratory Rate 18 Blood Pressure 113/79 Pulse Oximetry 95 Oxygen Delivery Me thod Room Air Oxygen Flow Rate Fraction of Inspir ed Oxygen Hydration adequate: Yes Nausea and vomiting: No Pain level: 1 Mental status: Baseline
== END 2024-11-09 10:28 | disposition home or self-care (01) ==
PROVIDERS: PCP Family Medicine; Visit Provider Podiatrist Foot & Ankle Surgery
PROC: (CPT 28820; principal; 2024-11-09 08:00)
DX: M20.42 Other hammer toe(s) (acquired), left foot (principal); M24.572 Contracture, left ankle; L97.524 Non-pressure chronic ulcer of other part of left foot with necrosis of bone; E11.42 Type 2 diabetes mellitus with diabetic polyneuropathy; J44.9 Chronic obstructive pulmonary disease, unspecified; I25.10 Atherosclerotic heart disease of native coronary artery without angina pectoris; Z86.73 Personal history of transient ischemic attack (TIA), and cerebral infarction without residual deficits; F17.210 Nicotine dependence, cigarettes, uncomplicated; I11.0 Hypertensive heart disease with heart failure; I50.30 Unspecified diastolic (congestive) heart failure
CPT/HCPCS: 28820 ×4; 27605; 36416; 82962; 88305; 88311; J1815; J2704; J3370; J3490; J7030

== ENCOUNTER 2024-11-15 08:10 | Outpatient (CLI) | payer MEDICARE, MEDICAID, SELFPAY ==
[2024-11-15] VITALS (34 sets, daily range): BP systolic 125–168; BP diastolic 71–91; PULSE 96–104; RESP 14–29; TEMP 37.1; O2SAT 91–98; BMI 29.0
--- NOTE | 2024-11-15 07:30 | XACV_ITS ---
Ht: 165 cm Wt: 82 kg BSA: 1.96 m2 Any Known Allergies: Penicillins Gender: Female : 1965 Exam Type: Invasive Peripheral Vascular Procedure(s): Procedure Description: Diagnostic procedure Procedure Description: Peripheral Cath Diagnostic Procedure Procedure Description: Abdominal aortic angiography Procedure Description: Lower extremities' angiography Procedure Description: Peripheral IVUS Exam Priority: Routine Abdominal Diagnostic Findings Distal abdominal aorta is patent. Lower Extremity Diagnostic Findings INDICATION: Severe lifestyle limiting claudication/ Severe PAD. Right lower extremity findings: Right common iliac artery is patent. Right external iliac artery is patent. Iliac arteries bilaterally were evaluated with IVUS because of metal plates, visualization was limited. No significant disease seen. Right SFA is patent and has diffuse mild to moderate disease. Right profunda artery is patent. Popliteal artery is not well-visualized secondary to knee prosthesis. Various views were obtained. We then performed IVUS that showed a moderate disease but no critical stenosis. MLA was 7.4mm2. Below the knee patient has three-vessel runoff with 70-80% stenosis of right posterior tibial artery.. Left lower extremity findings: Left common iliac artery is patent. Left external iliac artery is patent. IVUS evaluated these arteries and no significant stenosis seen. Left SFA has diffuse distal vessel moderate to severe 60-70& stenosis. Popliteal artery is patent. Below the knee patient has 2 vessel runoff with peroneal artery occluded. . Conclusions Moderate disease of right lower extremity. Medical therapy for now. Moderate to severe left SFA disease. We will medically treat it for now however can be considered for intervention if worsening on medical therapy. Recommendations Aggressive medical therapy. Outpatient cardiology follow up in 2 weeks. Hemodynamic Data Phase:Rest AO : 145.0 / 71.0 ( 102.0 ) @ 9:34:00 AM 182.0 / 73.0 ( 116.0 ) @ 10:05:00 AM Access Site Site: Left Femoral artery Sheath Size: 6 Fr Hemost... Method: Mynx Hemost... Success: Successful Procedure Details Findings Procedure Consent Obtained. Admit Source: Out Patient. Pre-Procedure Time Out. Identified patient by full name and date of as verbalized by the patient/guarantor. Does the consent match the physician's order: Yes. Accurate & Complete Informed Consent: Yes. Inpatient/Outpatient History & Physical on Chart: Yes. If H&P is completed, is and addenduem needed: No; If yes, is the addendum complete: N/A. Visualize and Verify Site with Patient/Guarantor: N/A. Relevant Radiology Images available: N/A. The risks, benefits, and alternatives of sedation and/or procedure were discussed by physician. The patient agrees to continue. Correct patient, site and procedure confirmed by cath team. Current diagnosis: Lifestyle limiting claudication, PAD. PERRLA. Strong, equal hand internal medicine doctor bilaterally. Lungs clear x 5 lobes. IV Site on Arrival: 20 gauge in the right anticubital. IV Fluids: 0.9% NaCl at KVO. 0 mL infused prior to liaison inspection laboratory assistant. Pre Procedural Pulses: right posterior tibial was Doppled. Pre Procedural Pulses: right dorsalis pedis was Doppled. Pre Procedural Pulses: bilateral radial was 1+. Unable to assess pulses to left foot due to ortho cast to left leg/foot. Oxygen started at 2liters/min via nasal canula. bilateral groins was prepped with chloroprep then draped in the usual sterile fashion. Physician notified. Baseline sample Acquired. HR: 100 BPM. Physician arrived. Physician scrubbed in. Time out performed with cath team. Lidocaine 1% infiltrated to the left groin. Ultrasound obtained to assist with arterial access. Arterial access obtained with micropuncture set. Unable to advance access wire. Hand injection through access needle. Wire and needle out. Holding manual pressure to stop bleeding. Arterial access obtained with micropuncture set. A 5Fr UF catheter in over wire. Procedure started. Abdominal aortogram performed in AP @ 10 mL/sec for a total of 30 mL. Abdominal aortogram performed in AP @ 10 mL/sec for a total of 30 mL. Glidewire in through UF catheter. Glidewire advanced to distal right sfa. UF catheter out. 6fr short sheath exchanged for 6fr 45cm flexor sheath over the glidewire. DSA performed below the knee to better visualize the distal vessels. Second DSA performed below the knee to better visualize the distal vessels. Glidwire out. Standard wire in through sheath to right popliteal. Standard wire out. 300cm runthrough wire in flexor sheath and advanced to right peroneal trunk. Difficulty visuaziling popliteal segment due to artificial joint. IVUS catheter in over runthrough wire. IVUS run performed on right popliteal. Runthrough wire and IVUS out. Standard wire in through flexor sheath. 6fr 45cm flexor sheath exchanged for new 6fr 11cm sheath over standard wire. UF catheter in over standard wire. DSA Abdominal aortogram performed in AP @ 10 mL/sec for a total of 30 mL to better visualize iliac arteries. Glidewire in through UF. UF advanced to right external iliac. Glidewire out. 300cm runthrough in through UF, parked in right SFA. UF catheter out. IVUS catheter inserted and IVUS measurements obtained of right iliac. IVUS catheter out OTW. Wire out. Sheath injected in Left common femoral artery and runoff performed. DSA performed of left popliteal to better visualize distal vessels of left leg. A Mynx was successful obtaining hemostatsis at the Left Femoral artery insertion site. EXP 09-18-2026 LOT # [id number]. Physician scrubbed out. Post Procedure: Pulses reassessed and unchanged. PERRLA. Strong, equal hand internal medicine doctor bilaterally. No VTE prophylaxis required. Medication's Wasted: Lidocaine 1% = 10 mL. Medication's Wasted: Heparin = 1000 unit. Total IV fluids: 60 mL. Post-op diagnosis: Moderate PAD distal Right Leg, Moderate to severe PAD left SFA. Complications: None. Estimated blood loss: 5mL-10mL. Responsiveness - Normal response to verbal stimuli; alert and oriented, PERRLA. Airway - Unaffected, no intervention required; spontaneous ventilation. Circulation: W/N/L, pulses unchanged. Nausea/Vomiting: No. Procedure completed. Patient transferred by stretcher to CPRU. Vital chart was stopped. Procedure Medications Start: 9:12 AM Stop: 9:12 AM Medication: Versed Amount: 1 mg Route: I.V. Start: 9:12 AM Stop: 9:12 AM Medication: Morphine Amount: 1 mg Route: I.V. Start: 9:15 AM Stop: 9:15 AM Medication: Versed Amount: 1 mg Route: I.V. Start: 9:15 AM Stop: 9:15 AM Medication: Morphine Amount: 1 mg Route: I.V. Start: 9:29 AM Stop: 9:29 AM Medication: Hydralazine Amount: 10 mg Route: I.V. Start: 9:32 AM Stop: 9:32 AM Medication: Versed Amount: 1 mg Route: I.V. Start: 9:32 AM Stop: 9:32 AM Medication: Morphine Amount: 1 mg Route: I.V. Start: 9:55 AM Stop: 9:55 AM Medication: Versed Amount: 1 mg Route: I.V. Start: 9:55 AM Stop: 9:55 AM Medication: Morphine Amount: 1 mg Route: I.V. I, the attending physician, have reviewed and verified all procedure medications. Yes, all medications given per verbal order History/Risk Factors Hypertension: Yes Dyslipidemia: Yes Peripheral Arterial Disease (PAD): Yes Obesity: Yes Renal Disease: No Tobacco Use: Current/Recent(w/in 1 year) Prior Interventions PCI: Yes CABG: No Valve Surgery: No Report Signatures Finalized by Brad Lyles MD on 11/24/2024 10:50 AM
[2024-11-15] MEDS: aspirin 325 mg Tablet PO (08:41)
[2024-11-15] MEDS: diphenhydrAMINE 50 mg Capsule PO (08:41)
--- NOTE | 2024-11-15 09:01 | W.PM.OPSUD ---
Surgery/Procedure H&P Update DATE OF PROCEDURE: November 15, 2024 DATE H&P PERFORMED: 10/25/24 H&P UPDATE INFORMATION: I have reviewed H&P completed within last 30 days, I have examined patient prior to procedure and No changes to prior documentation PREOP DIAGNOSIS: Lifestyle limiting claudication/ Peripheral artery disease PRIMARY INDICATION FOR PROCEDURE: Lifestyle limiting claudication/ Peripheral artery disease PLANNED PROCEDURE: Operation Date: 11/15/24 08:30 Proposed Procedures p Peripheral Diagnostic - Periph Angio Bilat(Bilateral) - Brad Lyles M.D Possible peripheral intervention PATIENT REASSESSED PRIOR TO SEDATION, WITH NO CHANGE NOTED: Yes PHYSICAL EXAM: alert, oriented x 3, clear to auscultation bilaterally and regular rate & rhythm AIRWAY EVAL/ANESTHESIA PLAN: normal airway, ASA III, Local Anesthesia, Risks, benefits & alternatives of sedation and/or procedure discussed and Patient agrees to continue as planned ADDITIONAL INFORMATION: Moderate sedation
--- NOTE | 2024-11-15 10:23 | PM.PROC ---
Procedure Note: Date of procedure: 11/15/24 Pre-procedure diagnosis: Severe lifestyle limiting claudication/ Severe PAD Post-procedure diagnosis: other (Moderate peripheral artery disease on right lower extremity, significant left SFA disease.) Procedure: Moderate peripheral artery disease on the right lower extremity with moderate stenosis of popliteal artery. Good three-vessel runoff to the foot. Significant left SFA disease. Will need staged intervention. Estimated blood loss (mL): 10 Complications: None Condition: stable Disposition: same day (Same day discharge) Coding Level of Care Code Acute Code for Nahed Alcazar
[2024-11-15] MEDS: morphine 4 mg/mL SDV 1 mL 2 MG IVP (11:45)
[2024-11-15] MEDS: ipratropium-albuterol 3 mL Neb INHALATION ×2 (12:49)
--- NOTE | 2024-11-15 14:51 | PC.NURSE ---
Patient received from labor operator s/p peripheral angiogram to left femoral artery. Minx device placed in labor operator. Dressing remain c,d,i without s/s of bleeding or hematoma formation observed. Patient has been up to [facility] [place]. No bleeding observed. Instructed patient on site care and restrictions. Patient verbalized complete understanding. Will continue to monitor.
--- NOTE | 2024-11-15 16:02 | P.SS_ITS ---
Short Stay Summary Providers Date of Admit/Discharge: 11/15/24 Attending Provider: Brad Lyles M.D Primary Care Provider: Laurel Eagle MD Chief Complaint: M79.604 HPI History of Present Illness Mayra Ascencio is a 59 year old female with past medical history of hypertension, hyperlipidemia, congestive heart failure, COPD, diabetes, CAD with prior left circumflex artery stent and carotid artery disease. Patient has been having worsening bilateral leg discomfort. Had abnormal testing with FIFI of 0.6 on right lower extremity and 0.8 of the left lower extremity. CTA demonstrated severe peripheral artery disease. Review of Systems Const: Denies: fever(s), chills, change in weight, fatigue or diaphoresis Eyes: Denies: change in vision ENMT: Denies: epistaxis Card: Denies: chest pain, palpitations, irregular heart rhythm, edema, syncope, pre-syncope, dyspnea on exertion, orthopnea or leg pain with exertion Resp: Denies: dyspnea, productive cough or wheezing GI: Denies: nausea, vomiting, hematemesis, hematochezia or melena : Denies: hematuria Musc: Denies: extremity swelling Xavier/Lymph: Denies: easy bruising or easy bleeding Home Meds/Allergies Home Medications and Allergies Home Medications Medication Instructions Recorded Confirmed Type cilostazol 50 mg tablet 50 mg PO BID 04/06/24 11/15/24 History metformin 500 mg tablet 500 mg PO BID 07/24/24 11/15/24 History furosemide 40 mg tablet 40 mg PO PRN Edema 10/25/24 11/14/24 History gabapentin 300 mg capsule 300 mg PO TID 10/25/24 11/15/24 History insulin glargine 100 unit/mL (3 25 unit SUBCUT BID 10/25/24 11/14/24 History mL) subcutaneous pen (Lantus Solostar U-100 Insulin) oxybutynin chloride 10 mg 20 mg PO DAILY 10/25/24 11/15/24 History tablet,extended release 24 hr sulfamethoxazole 800 1 tab PO BID 10/25/24 11/15/24 History mg-trimethoprim 160 mg tablet (Bactrim DS) varenicline 1 mg tablet 1 mg PO BID 10/25/24 11/15/24 History dulaglutide 1.5 mg/0.5 mL 1.5 mg SUBCUT Q7D 10/27/24 11/14/24 History subcutaneous pen injector (Trulicity) Allergies Allergy/AdvReac Type Severity Reaction Status Date / Time doxycycline Allergy Mild ADR-Photose Verified 11/14/24 10:19 nsitivity fentanyl Allergy Unknown ALGY-Difficulty Verified 11/14/24 10:19 Breathing adhesive Allergy Unknown Verified 11/14/24 10:19 codeine Allergy Unknown Verified 11/14/24 10:19 hydrocodone Allergy ADR-Itching Verified 11/14/24 10:19 latex Allergy ALGY-Swell Verified 11/14/24 10:19 Lip/Tongue/Throat naproxen [From Naprosyn] Allergy Unknown Verified 11/14/24 10:19 nut - unspecified Allergy ALGY-Anaphy Verified 11/14/24 10:19 laxis Penicillins Allergy Unknown Verified 11/14/24 10:19 tramadol Allergy ADR-Itching Verified 11/14/24 10:19 PFSH Acute PFSH: Medical History Hammertoe of left foot Thrombocytosis, unspecified Diabetes Cellulitis PAD (peripheral artery disease) Essential hypertension Depression Anemia 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 COPD (chronic obstructive pulmonary disease) Hypersensitivity pneumonitis Rheumatoid arthritis Infection of total left knee replacement Right wrist deformity History of stroke Acute exacerbation of chronic obstructive pulmonary disease (COPD) Acute encephalopathy Acute respiratory failure with hypoxia Acute alteration in mental status Sepsis Diabetes Sacral pressure ulcer Cellulitis of gluteal region Seizure disorder Hypoxemia Seizure UTI (urinary tract infection) Chronic, continuous use of opioids Seizures Acute and chronic respiratory failure with hypoxia Pneumonia Pneumonia Acute hypoxemic respiratory failure Stenosis of left internal carotid artery with cerebral infarction Diabetic foot ulcer Right arm weakness Hoarseness of voice Sepsis Numbness and tingling in both hands Urinary tract infection Chest pain Syncope Needs flu shot Carpal tunnel syndrome, right Urinary incontinence Chronic knee pain Abnormal stress test CAD (coronary artery disease) Acute exacerbation of CHF (congestive heart failure) Unstable angina COPD exacerbation Exposure to COVID-19 virus Compression fracture of L2 lumbar vertebra Right hip pain Dyspnea (HFpEF) heart failure with preserved eje ction fraction Candidiasis of vagina History of CVA (cerebrovascular accident) Elevated troponin Pericardial effusion Pressure ulcer Prosthetic joint infection Septic arthritis of knee, left Osteoarthritis of left knee History of hypoglycemic coma Obesity (BMI 35.0-39.9 without comorbidity) Peripheral sensory neuropathy due to type 2 diabetes mellitus Coronary artery disease due to type 2 diabetes mellitus Diabetes type 2, uncontrolled Neuropathy Insomnia Fibromyalgia, primary Hyperlipidemia, mixed CVA (cerebral vascular accident) Dyslipidemia Leukocytosis NSTEMI (non-ST elevated myocardial infarction) Thought to be secondary to plaque rupture. Angiogram July 04 no flow- limiting lesions, or restenosis of previous stent from April 2020 Chronic obstructive pulmonary disease, unspecified Vitamin D deficiency Type 2 diabetes mellitus with diabetic autonomic (poly)neuropathy Essential hypertension Encounter for long-term opiate analgesic use Opioid contract exists Current every day smoker Chronic pain of left knee Low back pain radiating to both legs Intervertebral disc disorder of lumbar region with myelopathy Lumbosacral spondylosis without myelopathy Osteoarthritis of spine at multiple levels Chronic left-sided low back pain Surgical History Status post left knee replacement History of coronary angiogram Angiogram April 2020 with 90% circumflex lesion, drug-eluting stent placed by Dr. Jerome Status post lumbar laminectomy S/P lumbar fusion DR. Shreya ZAYAS IN [place], [place] L4-L5, L5-S1 S/p bilateral carpal tunnel release History of arthroscopic surgery of elbow BILATERAL S/P hysterectomy S/P knee surgery RIGHT Family History Other CAD (coronary artery disease) Cancer Diabetes Social History Smoking and tobacco/nicotine status: current every day tobacco/nicotine user (vaping) cigarettes Packs smoked per day: 0.5 Years cigarettes smoked: 10 [ Other cigarette details: PER PATIENT REPORT] Alcohol intake: former Substance/Drug Use: never Caregiver/support person: Yes Lives independently: No Housing: Residential Marital status: Unknown Marital status details: She and son state she is not service: No Current occupational status: unemployed Pets and animals: Yes Do you think of yourself as: Straight/Heterosexual Current gender identity: Female Vitals/I&O/Wt Last Vital Signs Temp 98.8 F 11/15/24 08:14 Pulse 101 H 11/15/24 13:50 Resp 22 H 11/15/24 13:50 BP 165/84 11/15/24 13:50 Pulse Ox 95 11/15/24 13:50 O2 Del Method Nasal Cannula 11/15/24 12:51 O2 Flow Rate 2 11/15/24 12:51 Weight last 48 hrs Weight 180 lb Physical Exam Const: COMMON NORMALS: no acute distress and patient oriented x3 GENERAL APPEARANCE: cooperative and comfortable ORIENTATION/CONSCIOUSNESS: Yes awake, Yes oriented to person, Yes oriented to place and Yes oriented to time Chest: COMMONS NORMALS: normal inspection of the chest and normal palpation of entire chest wall CHEST: Yes Symmetrical chest wall rise Resp: COMMON NORMALS: normal respiratory effort, No retractions, No use of accessory muscles and clear to auscultation bilaterally EFFORT & INSPECTION: Yes symmetric chest movement AUSCULTATION: clear to auscultation bilaterally Cardio: COMMON NORMALS: regular rate, regular rhythm, S1 normal heart sound present, S2 normal heart sound present, No gallops present (Cardio), No clicks present (Cardio), No murmurs present (Cardio) and No rub (Cardio) RATE: regular rate RHYTHM: regular rhythm HEART SOUNDS: S1 normal heart sound present and S2 normal heart sound present PERIPHERAL PULSES: radial pulses present, femoral pulses present, posterior tibial pulses present and dorsalis pedis present Extremity: GENERAL: Yes edema (1+ LE edema bilaterally) Neuro: COMMON NORMALS: patient oriented x3 and moves all extremities SENSORIUM/ORIENTATION: Yes oriented to person, Yes oriented to place and Yes oriented to time Hospital Course Admission Diagnoses Severe lifestyle limiting claudication/severe PAD Hospital Course She underwent peripheral angiogram this morning: Moderate peripheral artery disease on the right lower extremity with moderate st enosis of popliteal artery. Good three-vessel runoff to the foot. Significant left SFA disease. Will need staged intervention. She has been ambulating this afternoon and doing well, no complications with left femoral cath site, no hematoma present. Will have her follow-up in the clinic in 7 to 10 days to arrange for staged intervention. Continue current home medications except for metformin and Jardiance which she can resume on Tuesday. 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 Routin e Exams 11/15/24 07:30 Taken Discharge Plan Discharge Patient Disposition: Home Prescriptions: Continued (DME) Blood Glucose Test Strip See Rx Instructions .Route Qty: 100 0RF Rx Instructions: tid ac meals albuterol sulfate 90 mcg/actuation HFA aerosol inhaler 2 puff inhalation Q6H PRN (Reason: shortness of breath or wheezing) Qty: 8.5 3RF (DME) blood-glucose meter Misc See Rx Instructions .Route Qty: 1 0RF Rx Instructions: dailyAs directed cyclobenzaprine 10 mg tablet 10 mg PO TID PRN (Reason: Muscle Spasm) Qty: 90 3RF duloxetine 60 mg capsule,delayed release(DR/EC) 60 mg PO DAILY Qty: 30 4RF ezetimibe 10 mg tablet 10 mg PO DAILY Qty: 30 4RF hydroxyzine HCl 25 mg tablet 25 mg PO Q6H PRN (Reason: itching) Qty: 20 0RF losartan 50 mg tablet 50 mg PO DAILY@0800 Qty: 30 4RF nitroglycerin [Nitrostat] 0.4 mg tablet, sublingual 0.4 mg SUBLINGUAL Q5M PRN (Reason: Chest Pain) Qty: 30 4RF Rx Instructions: do not exceed 3 doses per episode (DME) pen needle, diabetic [Comfort EZ Pen [place]] 32 gauge x 5/32 needle See Rx Instructions .Route Qty: 100 2RF Rx Instructions: use 3times a day to inject insulin. (DME) pen needle, diabetic [Comfort EZ Pen [place]] 31 gauge x 5/16 needle See Rx Instructions .Route Qty: 100 6RF Rx Instructions: use daily with levemir quetiapine 200 mg tablet 200 mg PO BEDTIME Qty: 30 4RF Brilinta 90 mg tablet 90 mg PO BID Qty: 180 3RF tiotropium bromide [Spiriva with HandiHaler] 18 mcg capsule, w/inhalation device 1 cap inhalation DAILY 30 Days Qty: 30 3RF epinephrine [EpiPen 2-Pankaj] 0.3 mg/0.3 mL auto-injector 0.3 mg IM Q4H PRN (Reason: anaphylaxis) Qty: 2 0RF (DME) Blood Glucose Test Strip See Rx Instructions .Route Qty: 50 3RF Rx Instructions: As directed accucheck test strips for accu check machine pantoprazole 40 mg tablet,delayed release (DR/EC) 40 mg PO QAM Qty: 90 3RF oxybutynin chloride 10 mg tablet extended release 24hr 20 mg PO DAILY gabapentin 300 mg capsule 300 mg PO TID varenicline 1 mg tablet 1 mg PO BID insulin glargine [Lantus Solostar U-100 Insulin] 100 unit/mL (3 mL) insulin pen 25 unit SUBCUT BID furosemide 40 mg tablet 40 mg PO PRN sulfamethoxazole-trimethoprim [Bactrim DS] 800-160 mg tablet 1 tab PO BID (DME) Wheel chair See Rx Instructions .Route .MEDSUPPLY Qty: 1 0RF Rx Instructions: As directed (DME) Diabetic shoes with 3 sets of insoles and toe filler to right See Rx Instructions .Route .MEDSUPPLY Qty: 1 0RF Rx Instructions: As directed (DME) lancets Misc See Rx Instructions .Route Qty: 100 0RF Rx Instructions: 1 tid aspirin 81 mg tablet,delayed release (DR/EC) 81 mg PO QAM Qty: 30 4RF oxycodone-acetaminophen [Percocet] 10-325 mg tablet 1 tab PO Q8H PRN (Reason: pain) Qty: 21 0RF cilostazol 50 mg Tablet 50 mg PO BID Trulicity 1.5 mg/0.5 mL pen injector 1.5 mg SUBCUT Q7D Held Jardiance 25 mg tablet 25 mg PO DAILY Qty: 30 4RF Hold Instructions: Resume on 11/18/24. Rx Instructions: 340 b metformin 500 mg tablet 500 mg PO BID Hold Instructions: Resume on 11/18/24. Discharge Orders: Discharge Order (Routine); Ordered 11/15/24 Ordered By: Aurea Walters Referrals: Aurea Walters FNP [Nurse Practitioner] - 11/26/24 1:30 pm Diet: Advance as tolerated Activity: Resume usual activity Patient Instructions: Peripheral Vascular Angioplasty (DC) Activity Restrictions/Additional Instructions: No lifting anything over 5 pounds for the next 5 days. Attestations Medical Necessity Statement*: Discharge home today Time Spent in Patient Care*: less than 30 min Status at Discharge: Cognitive status at discharge: cognitively intact , Behavioral status at discharge: cooperative , Functional status at discharge: independent ambulation Overall status at discharge: patient is back to baseline Quality Metrics Clinical Quality Measures: [ No reported AMI, CVA or VTE this stay ] Coding Level of Care Code Acute Code for Chg Fwd
--- NOTE | 2024-11-15 16:38 | PC.NURSE ---
Aurea in to see patient s/p angiogram. Dressing to left groin remains c,d,i without s/s of bleeding or hematoma formation observed. Patient dressed for discharge. Waiting for [employer]. Patient had previously arranged transportation.
== END 2024-11-15 17:00 | disposition home or self-care (01) ==
LOC: CCL 08:10 → CSU 14:52
PROVIDERS: PCP Family Medicine; Visit Provider Internal Medicine
DX: I70.211 Atherosclerosis of native arteries of extremities with intermittent claudication, right leg (principal); E78.5 Hyperlipidemia, unspecified; E66.9 Obesity, unspecified; Z68.29 Body mass index [BMI] 29.0-29.9, adult; I11.0 Hypertensive heart disease with heart failure; I50.30 Unspecified diastolic (congestive) heart failure; J44.9 Chronic obstructive pulmonary disease, unspecified; E11.9 Type 2 diabetes mellitus without complications; I25.10 Atherosclerotic heart disease of native coronary artery without angina pectoris; Z95.5 Presence of coronary angioplasty implant and graft
CPT/HCPCS: 36415; 75625; 75716; 94640; 96374; 96375; 99152; 99153; C1753; C1760; C1769; C1887; C1894; G0269; J0360; J1644; J2250; J2270; J7030; Q0163; Q9967

== ENCOUNTER → 2024-11-29 14:04 | Outpatient (BNVA) | payer MEDICARE, MEDICAID, SELFPAY | PROVIDERS: PCP Family Medicine; Visit Provider Nurse Practitioner Family | DX: I73.9 Peripheral vascular disease, unspecified (principal) | CPT/HCPCS: 99213 ==

== ENCOUNTER → 2024-12-31 08:35 | Outpatient (BNVA) | payer MEDICARE, MEDICAID, SELFPAY | PROVIDERS: PCP Family Medicine; Visit Provider Nurse Practitioner Family | DX: I73.9 Peripheral vascular disease, unspecified (principal) | CPT/HCPCS: 99213 ==

== ENCOUNTER → 2025-03-05 09:34 | Outpatient (BNVA) | payer MEDICARE, MEDICAID, SELFPAY | PROVIDERS: PCP Internal Medicine; Referring Provider Internal Medicine; Visit Provider Specialist | DX: R20.0 Anesthesia of skin (principal) | CPT/HCPCS: 95911 ==

== ENCOUNTER → 2025-03-06 08:23 | Outpatient (BNVA) | payer MEDICARE, MEDICAID, SELFPAY | PROVIDERS: PCP Internal Medicine; Visit Provider Nurse Practitioner Family | DX: I73.9 Peripheral vascular disease, unspecified (principal); Z79.82 Long term (current) use of aspirin; Z86.73 Personal history of transient ischemic attack (TIA), and cerebral infarction without residual deficits; F17.290 Nicotine dependence, other tobacco product, uncomplicated; I25.2 Old myocardial infarction | CPT/HCPCS: 99213 ==

== ENCOUNTER 2025-03-29 06:34 | Inpatient (IN) | payer MEDICARE, MEDICAID, SELFPAY ==
[2025-03-29] VITALS (80 sets, daily range): BP systolic 85–156; BP diastolic 50–104; PULSE 84–137; RESP 13–31; TEMP 37.4–38.3; O2SAT 84–100; BMI 32.3; BMI 38.5
--- NOTE | 2025-03-29 06:37 | ECG_ITS ---
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 Measurements Intervals [place] Rate: 134 P: 0 OK: 0 QRS: 15 QRSD: 92 T: 73 QT: 368 QTc: 550 Interpretive Statements SINUS TACHYCARDIA POSSIBLE ANTERIOR MYOCARDIAL INFARCTION , PROBABLY OLD [30 ms Q WAVE IN V3/V4, OR R < 0.2 mV IN V4] Compared to ECG 03/04/2024 17:51:35 Myocardial infarct finding now present Sinus rhythm no longer present Electronically Signed On 03-29-2025 14:49:59 CDT by Brad Lyles M.D. [id number]
--- NOTE | 2025-03-29 06:41 | XR_ITS ---
WS: [id number] Portable AP upright chest, 03/29/2025 Clinical Data: dyspnea/cough Comparison: Portable chest, 11/23/2023 Findings: No nodules, masses or effusions are seen. The heart is normal. The pulmonary vascularity is increased. No pneumonia or pneumothorax is seen. Monitor leads are on the chest wall. XR/XR chest 1V portable [id number] Impression: Bilateral pulmonary opacities which are most likely pulmonary vascular congesti on.
[2025-03-29 06:50] LABS: ABG PH Result 7.33 (7.35-7.45); Alveolar-Arterial Oxygen Gradi 5.4 mmHg (5-10); Arterial Blood Gas Hematocrit 34.3 % (37-47); Base Excess ABG -5.8 mmol/L (-2.0-2.0); Blood Gas Allen Test Pos; Blood Gas Sample Site Radial, left; Blood Gas Sample Type Arterial; Carboxyhemoglobin 0.6 %THgb (0.4-20.1); HCO3 ABG 19.5 mmol/L (22-26); HGB O2 Sat 86.7 % (95-100); Ionized Calcium Level - ABG 1.2 mmol/L (1.1-1.4); Methemoglobin 1.2 % (0.4-1.5); Oxygen Device NC; Oxygen Saturation ABG 88.3; PO2 ABG 61.6 mmHg (80.0-100.0); Potassium Level - ABG 4.4 mmol/L (3.5-5.0); Total Hemoglobin 11.2 g/dL (12-16)
[2025-03-29 07:12] LABS: Basophils # 0.2 10^3/uL (0.0-0.1); Basophils % 0.7 %; Eosinophils # 0.3 10^3/uL (0.0-0.8); Eosinophils % 1.4 %; Hematocrit 36.8 % (36-47); Lymphocytes # 1.5 10^3/uL (0.8-4.8); Lymphocytes % 6.5 %; Mean Corpuscular HGB Conc 29.6 g/dL (30-55); Mean Corpuscular Volume 74.2 fl (85-98); Mean Platelet Volume 8.9 fL (7.4-10.4); Monocytes # 1.1 10^3/uL (0.2-0.9); Monocytes % 4.9 %; Neutrophils % 85.8 %; Nucleated Red Blood Cells % 0 %; Platelet Count 578 10^3/cmm (157-399); Red Blood Count 4.96 10^6/uL (3.85-5.65); Red Cell Distribution Width 20.6 % (12.1-15.1); White Blood Count 23.06 10^3/uL (3.29-11.43)
[2025-03-29] MEDS: sodium chloride 0.9% 1,000 ML 999 ML IV (07:27)
[2025-03-29 07:32] LABS: Alanine Aminotransferase 27 U/L (0-33); Albumin Level 3.6 g/dL (3.5-5.2); Alkaline Phosphatase 93 U/L (35-105); Anion Gap 21.7 (5-19); Aspartate Amino Transferase 22 U/L (0-32); Blood Urea Nitrogen 13 mg/dL (6-20); Calcium 9.3 mg/dL (8.5-10.5); Carbon Dioxide 19 mmol/L (22-29); Chloride 101 mmol/L (98-107); Creatinine Clr Calc Pharmacy 78.2443; Globulin 3.4 g/dL (1.3-4.6); Glomerular Filtration Rate 64.5 mL/min (90-130); Glucose 251 mg/dL (65-115); Osmolality Calculated 293 mOsm/kg (285-295); Potassium 4.7 mmol/L (3.5-5.1); Sodium 137 mmol/L (136-145); Total Bilirubin 0.2 mg/dL (0.15-1.2); Troponin(5th) Baseline 44 ng/L (0-10)
--- NOTE | 2025-03-29 07:38 | ED_ITS ---
HPI - SOB/Dyspnea 2 General: Chief Complaint: Shortness of Breath/Dyspnea Stated Complaint: Resp Distre Time Seen by Provider: 03/29/25 06:40 History of Present Illness: HPI Narrative: 59-year-old female presents emergency ro om complaining of shortness of breath with some mild chest discomfort that she relates to the nurses although when I asked her she denied any chest pain. She remained mildly confused she is chronically on oxygen at 2 L. [facility] She denies any productive cough or fever. No abdominal pain. Associated symptoms: Reports chest congestion and chest pain (Variable report); Deny abdominal pain or fever(s) Related Data Home Medications ?Medication ?Instructions ?Recorded ?Confirmed metformin 500 mg tablet 500 mg PO BID 07/24/2403/29 furosemide 40 mg tablet 40 mg PO DAILY PRN Edema 07/1103/29/25 gabapentin 300 mg capsule 300 mg PO TID 10/25/2403/29 insulin glargine 100 unit/mL (3 50 unit SUBCUT BID 07/1103/29/25 mL) subcutaneous pen (Lantus Solostar U-100 Insulin) oxybutynin chloride 10 mg 20 mg PO DAILY 10/25/2403/17 tablet,extended release 24 hr varenicline tartrate 1 mg tablet 1 mg PO BID 10/25/24 03/29/25 dulaglutide 1.5 mg/0.5 mL 1.5 mg SUBCUT Q7D 10/27/24 0 03/29/25 subcutaneous pen injector (Trulicity) buprenorphine 2 mg-naloxone 0.5 mg See Rx Instructions .Route .COMPLEX 03/29/25 03/29/25 sublingual tablet cilostazol 100 mg tablet 100 mg PO BID 03/29/2503/29 dorzolamide 22.3 mg-timolol 6.8 1 drp ophthalmic (eye) BID 03/29/25 03/29/25 mg/mL eye drops empagliflozin 25 mg tablet 25 mg PO DAILY 03/29/25 (Jardiance) neomycin 3.5 mg/g-polymyxin B See Rx Instructions .Rou te .COMPLEX 03/29/25 03/29/25 10,000 unit/g-dexameth 0.1 % eye oint pantoprazole 40 mg tablet,delayed 40 mg PO QAM PRN Aci d Reflux 03/29/25 03/29/25 release pregabalin 300 mg capsule 300 mg PO BID 03/29/2503/29 sulfamethoxazole 800 1 tab PO BID 03/29/25 mg-trimethoprim 160 mg tablet tramadol 50 mg tablet 50 - 100 mg PO Q6H PRN Pain 03/29/25 03/29/25 Previous Rx's ?Medication ?Instructions ?Recorded blood sugar diagnostic (Blood #50 ea 08/10/23 Glucose Test strips) lancets #100 ea 11/28/23 albuterol sulfate 90 mcg/actuation 2 puff inhalation Q 6H PRN 01/10/24 aerosol inhaler shortness of breath or wheez ing #8.5 grams blood sugar diagnostic (Blood #100 ea 01/10/24 Glucose Test strips) blood-glucose meter #1 ea 01/10/24 aspirin 81 mg tablet,delayed 81 mg PO QAM #30 tabs 02/07 release cyclobenzaprine 10 mg tablet 10 mg PO TID PRN Muscle S pasm #90 04/16/24 tabs duloxetine 60 mg capsule,delayed 60 mg PO DAILY #30 ca ps 04/16/24 release epinephrine 0.3 mg/0.3 mL 0.3 mg (0.3 mL) IM Q4H PRN 0 04/16/24 injection, auto-injector (EpiPen anaphylaxis #2 ea 2-Pankaj) nitroglycerin 0.4 mg sublingual 0.4 mg sublingual Q5M PRN Chest 04/16/24 tablet (Nitrostat) Pain #30 tabs pen needle, diabetic 31 gauge x #100 ea 04/16/2403/01 (Comfort EZ Pen [place]) pen needle, diabetic 32 gauge x #100 ea 04/16/24 (Comfort EZ Pen [place]) quetiapine 200 mg tablet 200 mg PO BEDTIME #30 tabs 0 04/16/24 Wheel chair #1 ea 07/19/24 Diabetic shoes with 3 sets of #1 ea 08/09/24 insoles and toe filler to right ezetimibe 10 mg tablet 10 mg PO DAILY #30 tabs 01/16 11/10 losartan 50 mg tablet 50 mg PO DAILY@0800 #30 tabs 03/06/25 ticagrelor 90 mg tablet (Brilinta) 90 mg PO BID #180 t abs 03/06/25 Allergies Allergy/AdvReac Type Severity Reaction Status Date / Time doxycycline Allergy Mild ADR-Photose Verified 03/06/25 08:44 nsitivity fentanyl Allergy Unknown ALGY-Difficulty Verified 03/06/25 08:44 Breathing adhesive Allergy Unknown Verified 03/06/25 08:44 codeine Allergy Unknown Verified 03/06/25 08:44 hydrocodone Allergy ADR-Itching Verified 03/06/25 08:44 latex Allergy ALGY-Swell Verified 03/06/25 08:44 Lip/Tongue/Throat naproxen (From Naprosyn) Allergy Unknown Verified 03/06/25 08:44 nut - unspecified Allergy ALGY-Anaphy Verified 03/06/25 08:44 laxis Penicillins Allergy Unknown Verified 03/06/25 08:44 tramadol Allergy ADR-Itching Verified 03/06/25 08:44 Review of Systems 2 Const: Denies: fever(s) or chills Card: Reports: chest pain (Variable report) Resp: Reports: dyspnea, productive cough, wheezing and chest congestion GI: Denies: abdominal pain : Denies: dysuria, urinary frequency or urinary urgency Musc: Denies: neck pain or back pain Skin/Breast: Denies: rash PFSH ED 2 PFSH: Medical History PAD (peripheral artery disease) Hammertoe of left foot Thrombocytosis, unspecified Diabetes Cellulitis Essential hypertension Depression Anemia 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 COPD (chronic obstructive pulmonary disease) Hypersensitivity pneumonitis Rheumatoid arthritis Infection of total left knee replacement Right wrist deformity History of stroke Acute exacerbation of chronic obstructive pulmonary disease (COPD) Acute encephalopathy Acute respiratory failure with hypoxia Acute alteration in mental status Sepsis Diabetes Sacral pressure ulcer Cellulitis of gluteal region Seizure disorder Hypoxemia Seizure UTI (urinary tract infection) Chronic, continuous use of opioids Seizures Acute and chronic respiratory failure with hypoxia Pneumonia Pneumonia Acute hypoxemic respiratory failure Stenosis of left internal carotid artery with cerebral infarction Diabetic foot ulcer Right arm weakness Hoarseness of voice Sepsis Numbness and tingling in both hands Urinary tract infection Chest pain Syncope Needs flu shot Carpal tunnel syndrome, right Urinary incontinence Chronic knee pain Abnormal stress test CAD (coronary artery disease) Acute exacerbation of CHF (congestive heart failure) Unstable angina COPD exacerbation Exposure to COVID-19 virus Compression fracture of L2 lumbar vertebra Right hip pain Dyspnea (HFpEF) heart failure with preserved eje ction fraction Candidiasis of vagina History of CVA (cerebrovascular accident) Elevated troponin Pericardial effusion Pressure ulcer Prosthetic joint infection Septic arthritis of knee, left Osteoarthritis of left knee History of hypoglycemic coma Obesity (BMI 35.0-39.9 without comorbidity) Peripheral sensory neuropathy due to type 2 diabetes mellitus Coronary artery disease due to type 2 diabetes mellitus Diabetes type 2, uncontrolled Neuropathy Insomnia Fibromyalgia, primary Hyperlipidemia, mixed CVA (cerebral vascular accident) Dyslipidemia Leukocytosis NSTEMI (non-ST elevated myocardial infarction) Thought to be secondary to plaque rupture. Angiogram July 04 no flow- limiting lesions, or restenosis of previous stent from April 2020 Chronic obstructive pulmonary disease, unspecified Vitamin D deficiency Type 2 diabetes mellitus with diabetic autonomic (poly)neuropathy Essential hypertension Encounter for long-term opiate analgesic use Opioid contract exists Current every day smoker Chronic pain of left knee Low back pain radiating to both legs Intervertebral disc disorder of lumbar region with myelopathy Lumbosacral spondylosis without myelopathy Osteoarthritis of spine at multiple levels Chronic left-sided low back pain Surgical History Status post left knee replacement History of coronary angiogram Angiogram April 2020 with 90% circumflex lesion, drug-eluting stent placed by Dr. Jerome Status post lumbar laminectomy S/P lumbar fusion DR. Shreya ZAYAS IN [place], [place] L4-L5, L5-S1 S/p bilateral carpal tunnel release History of arthroscopic surgery of elbow BILATERAL S/P hysterectomy S/P knee surgery RIGHT Family History Other CAD (coronary artery disease) Cancer Diabetes Social History Smoking and tobacco/nicotine status: current every day tobacco/nicotine user (vaping) cigarettes Packs smoked per day: 0.5 Years cigarettes smoked: 10 [ Other cigarette details: PER PATIENT REPORT] Alcohol intake: former Substance/Drug Use: never Caregiver/support person: Yes Lives independently: No Housing: [facility] Marital status: Unknown Marital status details: She and son state she is not service: No Current occupational status: unemployed Pets and animals: Yes Do you think of yourself as: Straight/Heterosexual Current gender identity: Female Physical Exam 2 Const: GENERAL APPEARANCE: cooperative ORIENTATION/CONSCIOUSNESS: Yes awake, Yes oriented to person, Yes oriented to place and Yes oriented to time HENMT: COMMON NORMALS: normocephalic, atraumatic and hearing grossly normal bilaterally HEAD & SCALP: normocephalic and atraumatic Resp: AUSCULTATION: rhonchi and wheezes Cardio: COMMON NORMALS: regular rate, regular rhythm and No murmurs present (Cardio) RATE: regular rate RHYTHM: regular rhythm GI: COMMON NORMALS: Soft to palpation and No hepatosplenomegaly present A USCULTATION: Yes normoactive bowel sounds PALPATION: Yes Soft to palpation, No Tenderness to palpation present (GI), No Guarding due to palpation present (GI) and Yes No hepatosplenomegaly present Extremity: COMMON NORMALS: normal to inspection, capillary refill normal, no clubbing, cyanosis or edema, no calf tenderness and no pedal edema Neuro: SENSORIUM/ORIENTATION: Yes oriented to person, Yes oriented to place and Yes oriented to time Skin: COMMON NORMALS: no rashes or lesions noted GENERAL SKIN EXAM: no rashes or lesions noted Course 2 Vital Signs: Vital signs: Vital Signs Temperature 100.9 F H 03/29/25 06:34 Pulse Rate 110 H 03/29/25 14:00 Respiratory Rate 22 H 03/29/25 13:14 Blood Pressure 156/83 03/29/25 13:10 Pulse Oximetry 97 03/29/25 13:52 Oxygen Delivery Me thod Nasal Cannula 03/29/25 13:52 Oxygen Flow Rate 4 03/29/25 13:52 MDM - SOB/Dyspnea Medical Decision Making Patient septic secondary to pneumonia with significant leukocytosis lactic acid 3.3 she does have some dips in her blood pressure couple times down into the 90s. We reviewed her old records she has had problems with high output preserved ejection fraction heart failure in the past she was tachycardic when she came in. Believe it would be detrimental to give her a full 30 mL/kg as sepsis fluid bolus as it would definitely put her into heart failure there is already some concern recurrent chest x-ray that she may have some component of heart failure along with her pneumonia. She is given a small fluid bolus of 50 mL we will monitor closely in ICU. Troponin is delta positive by +44. Concerned that she may have a PE CTA of the chest did not show PE shows more multifocal pneumonia this is more consistent with her presentation then congestive heart failure. Patient did become hypotensive and required Levophed. Discussed with Dr. Marie and both agreed not to fluid bolus the patient beyond what we already have as it may worsen her condition. Will admit to ICU. Medical Records I reviewed the patient's medical records. Lab Data I reviewed the patient's lab results. 03/29/25 06:55 03/29/25 07:04 Labs/Radiology: Radiology Impressions Chest X-Ray 03/29/25 06:41 Impression: Bilateral pulmonary opacities which are most likely pulmonary vascular congestion. Chest CTA 03/29/25 10:08 IMPRESSION: 1. No evidence of large or central pulmonary embolism. 2. Sensitivity for pulmonary embolism is limited due to contrast bolus timing. 3. Fairly stable chronic mediastinal lymphadenopathy, largest in the subcarinal region measuring a proximally 5 x 2.5 cm. 4. Extensive bilateral patchy multifocal airspace disease with slight upper lobe predominance. Probable multifocal pneumonia. Laboratory Results WBC 23.06 10^3/uL (3.29-11.43) H 03/29/25 06:55 RBC 4.96 10^6/uL (3.85-5.65) 03/29/25 06:55 Hgb 10.90 g/dL (11.27-16.99) L 03/29/25 06:55 Hct 36.8 % (36-47) 03/29/25 06:55 MCV 74.2 fl (85-98) L 03/29/25 06:55 MCH 22.0 pg (27-33) L 03/29/25 06:55 MCHC 29.6 g/dL (30-55) L 03/29/25 06:55 RDW 20.6 % (12.1-15.1) H 03/29/25 06:55 Plt Count 578 10^3/cmm (157-399) H 03/29/25 06:55 MPV 8.9 fL (7.4-10.4) 03/29/25 06:55 Neut % (Auto) 85.8 % 03/29/25 06:55 Lymph % (Auto) 6.5 % 03/29/25 06:55 [place] % (Auto) 4.9 % 03/29/25 06:55 Eos % (Auto) 1.4 % 03/29/25 06:55 Baso % (Auto) 0.7 % 03/29/25 06:55 Neut # (Auto) 19.80 10^3/uL (1.8-7.7) H 03/29/25 06:55 Lymph # (Auto) 1.5 10^3/uL (0.8-4.8) 03/29/25 06:55 [place] # (Auto) 1.1 10^3/uL (0.2-0.9) H 03/29/25 06:55 Eos # (Auto) 0.3 10^3/uL (0.0-0.8) 03/29/25 06:55 Baso # (Auto) 0.2 10^3/uL (0.0-0.1) H 03/29/25 06:55 Nucleated RBC % (auto) 0 % 03/29/25 06:55 Nucleated RBCs # 0.0 /100WBC 03/29/25 06:55 Specimen Type Arterial 03/29/25 06:39 Sample Site Radial, left 03/29/25 06:39 ABG pH 7.33 (7.35-7.45) L 03/29/25 06:39 ABG pCO2 37.0 mmHg (35-45) 03/29/25 06:39 ABG pO2 61.6 mmHg (80.0-100.0) L 03/29/25 06:39 ABG HCO3 19.5 mmol/L (22-26) L 03/29/25 06:39 ABG O2 Saturation 88.3 03/29/25 06:39 ABG Base Excess -5.8 mmol/L (-2.0-2.0) L 03/29/25 06:39 Freddy Test Pos 03/29/25 06:39 A-a O2 Gradient 5.4 mmHg (5-10) 03/29/25 06:39 Hematocrit 34.3 % (37-47) L 03/29/25 06:39 Hgb O2 Saturation 86.7 % (95-100) L 03/29/25 06:39 Carboxyhemoglobin 0.6 %THgb (0.4-20.1) 03/29/25 06:39 Methemoglobin 1.2 % (0.4-1.5) 03/29/25 06:39 Total Hemoglobin 11.2 g/dL (12-16) L 03/29/25 06:39 Sodium 139.0 mmol/L (131-143) 03/29/25 06:39 Potassium 4.4 mmol/L (3.5-5.0) 03/29/25 06:39 Glucose 262.0 mg/dL (70-115) H 03/29/25 06:39 Ionized Calcium 1.2 mmol/L (1.1-1.4) 03/29/25 06:39 O2 Delivery Device Nc 03/29/25 06:39 O2 Liters/Min 10.0 % 03/29/25 06:39 Coke Loader ID [email or web address] 03/29/25 06:39 Sodium 137 mmol/L (136-145) 03/29/25 07:04 Potassium 4.7 mmol/L (3.5-5.1) 03/29/25 07:04 Chloride 101 mmol/L (98-107) 03/29/25 07:04 Carbon Dioxide 19 mmol/L (22-29) L 03/29/25 07:04 Anion Gap 21.7 (5-19) H 03/29/25 07:04 BUN 13 mg/dL (6-20) 03/29/25 07:04 Creatinine 0.9 mg/dL (0.5-0.9) 03/29/25 07:04 GFR Calculation 64.5 mL/min (90-130) L 03/29/25 07:04 Glucose 251 mg/dL (65-115) H 03/29/25 07:04 Calculated Osmolality 293 mOsm/kg (285-295) 03/29/25 07:04 Lactic Acid 3.3 mmol/L (0.5-2.2) H 03/29/25 07:04 Lactic Acid (Sepsis) 2.4 mmol/L (0.5-2.2) H 03/29/25 08:58 Calcium 9.3 mg/dL (8.5-10.5) 03/29/25 07:04 Total Bilirubin 0.2 mg/dL (0.15-1.2) 03/29/25 07:04 AST 22 U/L (0-32) 03/29/25 07:04 ALT 27 U/L (0-33) 03/29/25 07:04 Alkaline Phosphatase 93 U/L (35-105) 03/29/25 07:04 Troponin T Baseline 44 ng/L (0-10) H 03/29/25 07:04 Troponin T 120 Minute 88.69 ng/L (0-10) H 03/29/25 08:58 Delta Troponin T 44.69 ABS# (0-10) H* 03/29/25 08:58 C-Reactive Protein 19.9 mg/L (0.0-4.9) H 03/29/25 07:15 NT-Pro-B Natriuret Pep 445 pg/mL (0-125) H 03/29/25 07:15 Total Protein 7.0 g/dL (6.6-8.7) 03/29/25 07:04 Albumin 3.6 g/dL (3.5-5.2) 03/29/25 07:04 Globulin 3.4 g/dL (1.3-4.6) 03/29/25 07:04 Urine Color Yellow (Yellow) 03/29/25 07:25 Urine Appearance Cloudy (CLEAR) A 03/29/25 07:25 Urine pH 5 (5-7) 03/29/25 07:25 Ur Specific Fields 1.031 (1.005-1.030) H 03/29/25 07:25 Urine Protein 1+ (Negative) H 03/29/25 07:25 Urine Glucose (UA) 3+ (Normal) H 03/29/25 07:25 Urine Ketones Negative (Negative) 03/29/25 07:25 Urine Blood Neg (Negative) 03/29/25 07:25 Urine Nitrate Positive (Negative) A 03/29/25 07:25 Urine Bilirubin Neg (Negative) 03/29/25 07:25 Urine Urobilinogen 0.2 mg/dL (Negative) 03/29/25 07:25 Ur Leukocyte Esterase Negative (Negative) 03/29/25 07:25 Urine RBC 0-4 /hpf (0-2) H 03/29/25 07:25 Urine WBC 6-10 /hpf (0-5) 03/29/25 07:25 Ur Squamous Epith Cells 0-4 /hpf (0-5) H 03/29/25 07:25 Amorphous Sediment Not Reportable 03/29/25 07:25 Urine Bacteria 4+ /hpf (NONE) H 03/29/25 07:25 Hyaline Casts 3.71 /lpf 03/29/25 07:25 Influenza A (PCR) Negative (Negative) 03/29/25 07:04 Influenza Type B (PCR) Negative (Negative) 03/29/25 07:04 RSV (PCR) Negative (Negative) 03/29/25 07:04 SARS-CoV-2 (PCR) Negative (Negative) 03/29/25 07:04 All radiology interpretation(s) finalized by discharge Discharge Plan Discharge Patient Disposition: Admitted As Inpatient Admit Provider: Avila Marie Clinical Impression: Community acquired pneumonia, Sepsis Condition: Stable Coding Level of Care Code ED Manager Of Software Development for Nahed Alcazar
[2025-03-29 07:47] LABS: Influenza A NEGATIVE (Negative); Influenza B NEGATIVE (Negative); Respiratory Syncytial Virus Ce NEGATIVE (Negative); SARS-CoV-2 PCR NEGATIVE (Negative)
[2025-03-29 08:08] LABS: Urine Appearance Cloudy (CLEAR); Urine Color Yellow (Yellow); pH Urine 5 (5-7)
[2025-03-29 08:09] LABS: Add Urine Culture? Yes; Add Urine Microscopic? YES; Bacteria Urine 4+ /hpf; Bilirubin Urine Neg (Negative); Blood Urine Neg (Negative); Glucose Urine UA 3+ (Normal); Hyaline Casts Urine 3.71 /lpf; Ketones Urine Negative (Negative); Leukocyte Esterase Urine Negative (Negative); Nitrate Urine Positive (Negative); Protein Urine 1+ (Negative); RBC Urine 0-4 /hpf (0-2); Specific Gravity, Urine 1.031 (1.005-1.030); Squamous Epithelial Cell Urine 0-4 /hpf (0-5); UA Slide Review UA Slide Review Perf; Urobilinogen Urine 0.2 mg/dL (Negative)
[2025-03-29 08:28] LABS: Lactic Sepsis W/Reflex 3.3 mmol/L (0.5-2.2)
[2025-03-29] MEDS: MEROPENEM 2,000 MG in sodium chloride 0.9% (plus) 50 ML 100 MG IV (08:32)
--- NOTE | 2025-03-29 08:33 | ECG_ITS ---
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 Measurements Intervals [place] Rate: 122 P: -25 MA: 162 QRS: 21 QRSD: 92 T: 72 QT: 344 QTc: 492 Interpretive Statements SINUS TACHYCARDIA NONSPECIFIC ST & T-WAVE ABNORMALITY Compared to ECG 03/29/2025 06:37:39 T-wave abnormality now present Supraventricular tachycardia no longer present Myocardial infarct finding no longer present Electronically Signed On 03-29-2025 15:02:14 CDT by Brad Lyles M.D. [email or web address]
[2025-03-29 08:40] LABS: Reflex Lactate Order REFLEX LACTIC ORDERD
[2025-03-29 08:46] LABS: C Reactive Protein 19.9 mg/L (0.0-4.9); NT Pro B Type Natriuretic Pept 445 pg/mL (0-125)
[2025-03-29] MEDS: sodium chloride 0.9% 50 ML IV (09:02)
[2025-03-29 09:24] LABS: Lactic Acid level (Lactate) 2.4 mmol/L (0.5-2.2); Troponin 5 2HR 88.69 ng/L (0-10)
[2025-03-29 09:27] LABS: Troponin 5 2HR Delta 44.69 ABS# (0-10)
--- NOTE | 2025-03-29 09:48 | PC.NURSE ---
pt's manual blood pressure weak, 85-90 systolic/50 diastolic; Dr. Hewitt notified; verbal orders for Levophed; see MAR
[2025-03-29] MEDS: norepinephrine 4 MG/250 ML BAG 30 MG IV (10:00)
--- NOTE | 2025-03-29 10:08 | CTR_ITS ---
PROCEDURE INFORMATION: Exam: CTA Chest With Contrast Exam date and time: 03/29/2025 11:03 AM Age: 59 years old Clinical indication: Other: Tachycardia hypoxia elevated troponin and bnp TECHNIQUE: Imaging protocol: Computed tomographic angiography of the chest with contrast. Exam focused on the arteries. 3D rendering (Not supervised by radiologist): MIP and/or 3D reconstructed images were created by the technologist. Radiation optimization: All CT scans at this facility use at least one of these dose optimization techniques: automated exposure control; mA and/or kV adjustment per patient size (includes targeted exams where dose is matched to clinical indication); or iterative reconstruction. Contrast material: OMNI 350; Contrast volume: 63 ml; Contrast route: INTRAVENOUS (IV); COMPARISON: CT angio chest PE protcl [id number] 12/08/2021 8:10 PM RADIATION DOSE METRICS: Total DLP (mGy-cm): 419.74 FINDINGS: Limitations: Sensitivity for pulmonary embolism is limited due to contrast bolus timing. Pulmonary arteries: No evidence of large or central pulmonary embolism. Aorta: Unremarkable. No aortic aneurysm. No aortic dissection. Lungs: Extensive bilateral patchy multifocal airspace disease with slight upper lobe predominance. Pleural spaces: Unremarkable. No pneumothorax. No pleural effusion. Heart: Unremarkable. No cardiomegaly. No pericardial effusion. Lymph nodes: Fairly stable chronic mediastinal lymphadenopathy, largest in the subcarinal region measuring a proximally 5 x 2.5 cm. Bones/joints: Unremarkable. No acute fracture. Soft tissues: Unremarkable. Other findings: Calcified granuloma at the left base. CT/CT angio chest PE protcl [id number] IMPRESSION: 1. No evidence of large or central pulmonary embolism. 2. Sensitivity for pulmonary embolism is limited due to contrast bolus timing. 3. Fairly stable chronic mediastinal lymphadenopathy, largest in the subcarinal region measuring a proximally 5 x 2.5 cm. 4. Extensive bilateral patchy multifocal airspace disease with slight upper lobe predominance. Probable multifocal pneumonia.
[2025-03-29] MEDS: heparin 5,000 unit/mL INJ 1 mL IVP (10:40)
[2025-03-29] MEDS: heparin drip 25,000 UNIT/500 ML PREMIX 45.36 UNIT IV (10:46)
[2025-03-29] MEDS: iohexol 350 mg/mL 500 mL Btl (per mL) IV (11:09)
--- NOTE | 2025-03-29 12:18 | PM.HP ---
Providers/Chief Complaint Admitting Physician: Avila Marie Primary Care Provider: Javier Shields MD Chief Complaint: Resp Distre History of Present Illness Mayra Ascencio is a 59 year old female with a history of COPD, coronary artery disease, congestive heart failure, hypertension, hyperlipidemia, peripheral arterial disease, carotid artery disease, diabetes, seizure disorder, degenerative disease. The patient presents with worsening shortness of breath and cough. In the emergency department, the patient was found to have a fever (100.9?F), leukocytosis (WBC 23), hypoxemia (O2 saturation 61.6% on nasal cannula), and abnormal troponin levels (baseline 44, repeat 88.69, delta 44.69). Other labs included proBNP 445 and CRP 19.9. Urinalysis was positive for nitrate, with 0-4 RBCs, 6-10 WBCs, and hyaline casts. Chest x-ray showed bilateral pulmonary opacities, and CT angiogram of the chest showed no evidence of pulmonary embolism but did reveal chronic mediastinal lymphadenopathy and extensive bilateral, patchy, multifocal airspace disease, most prominent in the upper lobes, suggestive of probable multifocal pneumonia. The patient received a 1-liter fluid bolus, meropenem after cultures, and was started on a heparin drip. The patient experienced hypotension in the ED and required levophed. The patient reports chest pain, sensation of something in the throat, and constipation. No diarrhea, vomiting, melena, or hematuria. The patient is usually on 2L oxygen at home but is currently requiring 9-10L. No nebulizer, BiPAP, or CPAP at home. The patient takes Seroquel 200mg at night for sleep. The patient uses a cane for ambulation and has had toes amputated due to deformity and chronic injury with rheumatoid arthritis. The patient denies current smoking and alcohol use. Family is involved in care, with son assisting with feeding during periods of severe pain. Review of Systems Const: Denies: fever(s), chills, body aches or malaise ENMT: Denies: throat pain Card: Denies: chest pain, edema, pre-syncope or dyspnea on exertion Resp: Reports: dyspnea, productive cough and change in phlegm color; Denies: hemoptysis GI: Denies: abdominal pain, nausea, vomiting, diarrhea, constipation, hematochezia or melena : Denies: flank pain, urinary frequency or hematuria Musc: Denies: back pain, joint swelling or joint redness Skin/Breast: Denies: rash or new lesions Neuro: Denies: headache(s) or confusion Medications/Allergies Home Medications ?Medication ?Instructions ?Recorded ?Confirmed ?Last Taken ?Type blood sugar diagnostic (Blood #50 ea 08/10/23 03/29/25 Unknown Rx Glucose Test strips) lancets #100 ea 11/28/23 03/29/25 Unknown Rx albuterol sulfate 90 mcg/actuation 2 puff inhalation Q6H PRN 01/10/24 03/29/25 11/14/24 18:00 Rx aerosol inhaler shortness of breath or wheezing #8.5 grams blood sugar diagnostic (Blood #100 ea 01/10/24 03/29/25 Unknown Rx Glucose Test strips) blood-glucose meter #1 ea 01/10/24 03/29/25 Unknown Rx aspirin 81 mg tablet,delayed 81 mg PO QAM #30 tabs 03/20/24 03/29/25 03/28/25 Rx release cyclobenzaprine 10 mg tablet 10 mg PO TID PRN Muscle Spasm #90 04/16/24 03/29/25 11/14/24 18:00 Rx tabs duloxetine 60 mg capsule,delayed 60 mg PO DAILY #30 caps 04/16/24 03/29/25 03/28/25 Rx release epinephrine 0.3 mg/0.3 mL 0.3 mg (0.3 mL) IM Q4H PRN 04/16/24 03/29/25 07/23/24 Rx injection, auto-injector (EpiPen anaphylaxis #2 ea 2-Pankaj) nitroglycerin 0.4 mg sublingual 0.4 mg sublingual Q5M PRN Chest 04/16/24 03/29/25 10/26/24 Rx tablet (Nitrostat) Pain #30 tabs pen needle, diabetic 31 gauge x #100 ea 04/16/24 03/29/25 Unknown Rx 5/16 (Comfort EZ Pen [place]) pen needle, diabetic 32 gauge x #100 ea 04/16/24 03/29/25 Unknown Rx 5/32 (Comfort EZ Pen [place]) quetiapine 200 mg tablet 200 mg PO BEDTIME #30 tabs 04/16/24 03/29/25 03/28/25 Rx Wheel chair #1 ea 07/19/24 03/29/25 Unknown Rx metformin 500 mg tablet 500 mg PO BID 07/24/24 03/29/25 03/28/25 History Diabetic shoes with 3 sets of #1 ea 08/09/24 03/29/25 Unknown Rx insoles and toe filler to right furosemide 40 mg tablet 40 mg PO DAILY PRN Edema 10/25/24 03/29/25 10/26/24 History gabapentin 300 mg capsule 300 mg PO TID 10/25/24 03/29/25 03/28/25 History insulin glargine 100 unit/mL (3 50 unit SUBCUT BID 10/25/24 03/29/25 03/28/25 History mL) subcutaneous pen (Lantus Solostar U-100 Insulin) oxybutynin chloride 10 mg 20 mg PO DAILY 10/25/24 03/29/25 03/28/25 History tablet,extended release 24 hr varenicline tartrate 1 mg tablet 1 mg PO BID 10/25/24 03/29/25 03/28/25 History dulaglutide 1.5 mg/0.5 mL 1.5 mg SUBCUT Q7D 10/27/24 03/29/25 03/27/25 History subcutaneous pen injector (Trulicity) ezetimibe 10 mg tablet 10 mg PO DAILY #30 tabs 02/04/25 03/29/25 03/28/25 Rx losartan 50 mg tablet 50 mg PO DAILY@0800 #30 tabs 03/06/25 03/29/25 03/28/25 Rx ticagrelor 90 mg tablet (Brilinta) 90 mg PO BID #180 tabs 03/06/25 03/29/25 03/28/25 Rx buprenorphine 2 mg-naloxone 0.5 mg See Rx Instructions .Route .COMPLEX 03/29/25 03/29/25 Unknown History sublingual tablet cilostazol 100 mg tablet 100 mg PO BID 03/29/25 03/29/25 03/28/25 History dorzolamide 22.3 mg-timolol 6.8 1 drp ophthalmic (eye) BID 03/29/25 03/29/25 03/28/25 History mg/mL eye drops empagliflozin 25 mg tablet 25 mg PO DAILY 03/29/25 03/29/25 03/28/25 History (Jardiance) neomycin 3.5 mg/g-polymyxin B See Rx Instructions .Route .COMPLEX 03/29/25 03/29/25 03/28/25 History 10,000 unit/g-dexameth 0.1 % eye oint pantoprazole 40 mg tablet,delayed 40 mg PO QAM PRN Acid Reflux 03/29/25 03/29/25 Unknown History release pregabalin 300 mg capsule 300 mg PO BID 03/29/25 03/29/25 03/28/25 History sulfamethoxazole 800 1 tab PO BID 03/29/25 03/29/25 03/28/25 History mg-trimethoprim 160 mg tablet tramadol 50 mg tablet 50 - 100 mg PO Q6H PRN Pain 03/29/25 03/29/25 Unknown History Allergies Allergy/AdvReac Type Severity Reaction Status Date / Time doxycycline Allergy Mild ADR-Photose Verified 03/06/25 08:44 nsitivity fentanyl Allergy Unknown ALGY-Difficulty Verified 03/06/25 08:44 Breathing adhesive Allergy Unknown Verified 03/06/25 08:44 codeine Allergy Unknown Verified 03/06/25 08:44 hydrocodone Allergy ADR-Itching Verified 03/06/25 08:44 latex Allergy ALGY-Swell Verified 03/06/25 08:44 Lip/Tongue/Throat naproxen (From Naprosyn) Allergy Unknown Verified 03/06/25 08:44 nut - unspecified Allergy ALGY-Anaphy Verified 03/06/25 08:44 laxis Penicillins Allergy Unknown Verified 03/06/25 08:44 tramadol Allergy ADR-Itching Verified 03/06/25 08:44 PFSH Acute PFSH: Medical History (Updated 03/29/25 @ 17:28 by Avila Marie MD) Acute respiratory failure with hypoxia PAD (peripheral artery disease) Hammertoe of left foot Thrombocytosis, unspecified Diabetes Cellulitis Essential hypertension Depression Anemia 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 COPD (chronic obstructive pulmonary disease) Hypersensitivity pneumonitis Rheumatoid arthritis Infection of total left knee replacement Right wrist deformity History of stroke Acute exacerbation of chronic obstructive pulmonary disease (COPD) Acute encephalopathy Acute alteration in mental status Sepsis Diabetes Sacral pressure ulcer Cellulitis of gluteal region Seizure disorder Hypoxemia Seizure UTI (urinary tract infection) Chronic, continuous use of opioids Seizures Acute and chronic respiratory failure with hypoxia Pneumonia Pneumonia Acute hypoxemic respiratory failure Stenosis of left internal carotid artery with cerebral infarction Diabetic foot ulcer Right arm weakness Hoarseness of voice Sepsis Numbness and tingling in both hands Urinary tract infection Chest pain Syncope Needs flu shot Carpal tunnel syndrome, right Urinary incontinence Chronic knee pain Abnormal stress test CAD (coronary artery disease) Acute exacerbation of CHF (congestive heart failure) Unstable angina COPD exacerbation Exposure to COVID-19 virus Compression fracture of L2 lumbar vertebra Right hip pain Dyspnea (HFpEF) heart failure with preserved ejection fraction Candidiasis of vagina History of CVA (cerebrovascular accident) Elevated troponin Pericardial effusion Pressure ulcer Prosthetic joint infection Septic arthritis of knee, left Osteoarthritis of left knee History of hypoglycemic coma Obesity (BMI 35.0-39.9 without comorbidity) Peripheral sensory neuropathy due to type 2 diabetes mellitus Coronary artery disease due to type 2 diabetes mellitus Diabetes type 2, uncontrolled Neuropathy Insomnia Fibromyalgia, primary Hyperlipidemia, mixed CVA (cerebral vascular accident) Dyslipidemia Leukocytosis NSTEMI (non-ST elevated myocardial infarction) Thought to be secondary to plaque rupture. Angiogram July 04 no flow-limiting lesions, or restenosis of previous stent from April 2020 Chronic obstructive pulmonary disease, unspecified Vitamin D deficiency Type 2 diabetes mellitus with diabetic autonomic (poly)neuropathy Essential hypertension Encounter for long-term opiate analgesic use Opioid contract exists Current every day smoker Chronic pain of left knee Low back pain radiating to both legs Intervertebral disc disorder of lumbar region with myelopathy Lumbosacral spondylosis without myelopathy Osteoarthritis of spine at multiple levels Chronic left-sided low back pain Surgical History Status post left knee replacement History of coronary angiogram Angiogram April 2020 with 90% circumflex lesion, drug-eluting stent placed by Dr. Jerome Status post lumbar laminectomy S/P lumbar fusion DR. Shreya ZAYAS IN [place], [place] L4-L5, L5-S1 S/p bilateral carpal tunnel release History of arthroscopic surgery of elbow BILATERAL S/P hysterectomy S/P knee surgery RIGHT Family History Other CAD (coronary artery disease) Cancer Diabetes Social History Smoking and tobacco/nicotine status: current every day tobacco/nicotine user (vaping) cigarettes Packs smoked per day: 0.5 Years cigarettes smoked: 10 [ Other cigarette details: PER PATIENT REPORT] Alcohol intake: former Substance/Drug Use: never Caregiver/support person: Yes Lives independently: No Housing: Group Home Marital status: Unknown Marital status details: She and son state she is not service: No Current occupational status: unemployed Pets and animals: Yes Do you think of yourself as: Straight/Heterosexual Current gender identity: Female Vitals/I&O/Wt Last Vital Signs Temp 100.9 F H 03/29/25 06:34 Pulse 84 03/29/25 10:56 Resp 27 H 03/29/25 10:26 BP 152/82 03/29/25 10:56 Pulse Ox 98 03/29/25 10:56 O2 Del Method Nasal Cannula 03/29/25 11:27 O2 Flow Rate 2 03/29/25 07:00 03/28/25 03/29/25 03/29/25 22:59 06:59 14:59 Intake Total 1185.016 / 1185.016 Balance 1185.016 / 1185.016 Weight last 48 hrs Weight 105 kg Weight 90.718 kg Physical Exam Const: COMMON NORMALS: patient oriented x3 and alert GENERAL APPEARANCE: cooperative ORIENTATION/CONSCIOUSNESS: Yes awake HENMT: COMMON NORMALS: oropharynx normal Neck/C-Spine: COMMON NORMALS: no JVD Resp: AUSCULTATION: diminished lung sounds Cardio: COMMON NORMALS: no JVD, regular rhythm, S1 normal heart sound present, S2 normal heart sound present and No murmurs present (Cardio) RHYTHM: regular rhythm HEART SOUNDS: S1 normal heart sound present and S2 normal heart sound present GI: COMMON NORMALS: Normal to inspection, nondistended, normoactive bowel sounds present, Soft to palpation and non-tender PALPATION: Yes Soft to palpation Extremity: COMMON NORMALS: no joint enlargement and no pedal edema NARRATIVE EXTREMITY EXAM: Whole lower extremity digits amputated. Neuro: COMMON NORMALS: patient oriented x3 and moves all extremities SENSORIUM/ORIENTATION: Yes alert Skin: COMMON NORMALS: no rashes or lesions noted GENERAL SKIN EXAM: no rashes or lesions noted Data 03/29/25 06:55 03/29/25 07:04 Micro: Microbiology 03/29/25 07:12 Blood Culture - Preliminary Blood SPECIMEN COLLECTED 03/29/25 07:12 Blood Culture - Preliminary Blood SPECIMEN COLLECTED A&P Assessment and plan (1) Acute respiratory failure with hypoxia: Acute hypoxemic respiratory failure : Patient with baseline 2L O2 at home now requiring 9-10L in hospital. Hypoxemia noted (O2 sat 61.6% on nasal cannula in ED). No evidence of pulmonary embolism on CT angiogram. Likely secondary to pneumonia and underlying COPD/CHF. Discussed with respiratory, nursing. - Treat underlying conditions as below. - Continue supplemental oxygen as needed. - Monitor oxygen requirements and titrate as appropriate. (2) Multifocal pneumonia: Multifocal pneumonia : Patient presents with cough, fever, hypoxemia, and imaging consistent with multifocal pneumonia. Probable aspiration component discussed due to history of choking and food going down the wrong way. Treated with meropenem after cultures were collected. Reviewed vitals, CBC, PKD, ABG, CMP, troponin, UA, influenza, COVID, RSV PCR. Blood cultures have been collected. Reviewed lactic acid. With suspected sepsis on presentation with fever, tachycardia, leukocytosis, lactic acidosis, received limited fluid resuscitation with concern of over into congestive heart failure exacerbation, however, with shock, requiring pressor support, started on Levophed. Reviewed ED provider note, discussed with ED provider. - Continue meropenem as started after cultures. With severe pneumonia add corticosteroid. - Obtain MRSA PCR, sputum culture, urine bacterial antigens - Maintain thickened, pureed diet to reduce aspiration risk. - Speech therapy assessment. Will empirically start dysphagia diet for now. (3) Pleuritic chest pain: Reports chest pain with inspiration. CT angiogram of the chest negative for PE. Noted incidentally mediastinal lymphadenopathy which she will need outpatient follow-up. Suspect pleuritic pain secondary to multifocal pneumonia. However, possible component of NSTEMI. (4) Constipation: Patient reports hard stools and difficulty with bowel movements. No diarrhea, vomiting, melena, or hematochezia. Add bowel regimen. Plan Troponin elevation: However, with noted troponin abnormality with positive delta, 44 at baseline, up to 88.69 at 2 hours up to 120.8 at 6 hours. Possible NSTEMI. EKG reviewed, my interpretation without evidence of acute DE, pending official read. Continue aspirin, anticoagulated with heparin hold off beta-nany due to hypotension and shock. PDMP PDMP Reviewed: Not Reviewed Attestations Medical Necessity Statement*: Admission over 2 midnights will be needed for assessment and management of acute respiratory failure with hypoxia, multifocal pneumonia, possible NSTEMI. Coding Level of Care Code Critical Care >/= 30 minutes Critical care time (in minutes): 35 The high probability of a clinically significant, sudden or life threatening deterioration, as referenced in this documentation, required my full and direct attention, intervention and personal management. The critical care time shown is in addition to time spent performing any reported separately billable procedures and includes the following: [x] Data and vital sign review and interpretation [x] Patient assessment, examination and intervention [x] Medication orders and management [x] Patient/Family updates as able [x] Care Coordination and Documentation. Diagnoses Acute respiratory failure with hypoxia J96.01 Multifocal pneumonia J18.9 Pleuritic chest pain R07.81 Constipation K59.00
[2025-03-29] MEDS: meropenem 1,000 mg SDV 1000 MG IVP ×2 (12:57→20:16)
[2025-03-29] MEDS: guaiFENesin-dextromethorphan UDC 10 mL PO (13:00)
[2025-03-29] MEDS: aspirin 81 mg EC Tablet PO (13:01)
[2025-03-29] MEDS: methylPREDNISolone sod succ 40 mg/mL INJ 30 MG IVP ×2 (13:03→20:15)
[2025-03-29] MEDS: pantoprazole 40 mg SDV IVP (13:04)
[2025-03-29] MEDS: ipratropium-albuterol 3 mL Neb INHALATION ×2 (13:14→20:49)
--- NOTE | 2025-03-29 13:18 | ECG_ITS ---
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 Measurements Intervals [place] Rate: 111 P: 7 NM: 188 QRS: 16 QRSD: 88 T: 69 QT: 346 QTc: 472 Interpretive Statements SINUS TACHYCARDIA POSSIBLE ANTERIOR MYOCARDIAL INFARCTION , PROBABLY OLD [30 ms Q WAVE IN V3/V4, OR R < 0.2 mV IN V4] Compared to ECG 03/29/2025 08:33:41 Myocardial infarct finding now present T-wave abnormality no longer present Electronically Signed On 03-29-2025 14:59:25 CDT by Brad Lyles M.D. [email or web address] [id number]
[2025-03-29 14:32] LABS: Troponin 5 6HR 120.8 ng/L (0-10); Troponin 5 6HR Delta 76.8 ng/L (0-12)
[2025-03-29 15:15] LABS: MRSA PCR OZH (swab) NOT DETECTED (Not Detecte)
[2025-03-29 17:18] LABS: Glucose Point of Care 280 mg/dL (70-110)
[2025-03-29] MEDS: insulin lispro 100 unit/1 mL SUBCUT ×2 (17:43→20:42)
[2025-03-29] MEDS: insulin glargine 100 units/1 mL 50 UNIT SUBCUT (17:43)
[2025-03-29 17:44] LABS: Partial Thromboplastin Time 32.3 SECONDS (23.9-36.7)
[2025-03-29] MEDS: ticagrelor 90 mg Tablet PO (17:44)
[2025-03-29] MEDS: polyethylene glycol 3350 Pkt 17 gm PO (17:44)
--- NOTE | 2025-03-29 18:20 | PC.NURSE ---
Patient arrived to ICU at 1120. All pressors off at this time. Heparin gtt running per protocol.
[2025-03-29] MEDS: quetiapine 100 mg Tablet 200 MG PO (20:15)
[2025-03-29] MEDS: gabapentin 100 mg Capsule 200 MG PO (20:15)
[2025-03-29 20:33] LABS: Glucose Point of Care 286 mg/dL (70-110)
[2025-03-30] VITALS (30 sets, daily range): BP systolic 109–146; BP diastolic 52–92; PULSE 102–121; RESP 12–40; TEMP 36.6–37; O2SAT 88–94
[2025-03-30] MEDS: heparin drip 25,000 UNIT/500 ML PREMIX 41 UNIT IV (02:37)
[2025-03-30] MEDS: heparin 5,000 unit/mL INJ 1 mL IVP ×3 (02:44→19:43)
[2025-03-30] MEDS: ipratropium-albuterol 3 mL Neb INHALATION ×2 (02:51→08:18)
--- NOTE | 2025-03-30 03:32 | PC.NURSE ---
Addendum entered by Alicia Kim RN 03/30/25 03:38: Communicated with lab about wrong date documented on ptt result. geovanna Dawkins, in lab states they cannot changed the date on the results after they have already been completed and the only way to change date on the results is to redraw the ptt. Ptt cannot be redrawn now due to time sensitivity of the heparin drip being titrated. Original Note: PTT: 03/30 PTT results for 0043 were documented under the wrong date (03/29). Heparin drip changed based on PTT of 30.9 for 0043 on 03/30.
[2025-03-30] MEDS: methylPREDNISolone sod succ 40 mg/mL INJ 30 MG IVP ×3 (05:14→21:25)
[2025-03-30] MEDS: aspirin 81 mg EC Tablet PO (05:14)
[2025-03-30] MEDS: meropenem 1,000 mg SDV 1000 MG IVP ×3 (05:14→21:25)
[2025-03-30 05:17] LABS: Basophils # 0.1 10^3/uL (0.0-0.1); Basophils % 0.2 %; Hematocrit 29.3 % (36-47); Lymphocytes # 1.3 10^3/uL (0.8-4.8); Lymphocytes % 5.6 %; Mean Corpuscular HGB Conc 29.4 g/dL (30-55); Mean Corpuscular Hemoglobin 21.8 pg (27-33); Mean Corpuscular Volume 74.4 fl (85-98); Mean Platelet Volume 8.7 fL (7.4-10.4); Monocytes # 0.7 10^3/uL (0.2-0.9); Monocytes % 3.1 %; Neutrophils % 90.2 %; Nucleated Red Blood Cells % 0 %; Platelet Count 462 10^3/cmm (157-399); Red Blood Count 3.94 10^6/uL (3.85-5.65); Red Cell Distribution Width 19.9 % (12.1-15.1); White Blood Count 22.63 10^3/uL (3.29-11.43)
[2025-03-30 07:55] LABS: Alanine Aminotransferase 20 U/L (0-33); Albumin Level 3.5 g/dL (3.5-5.2); Alkaline Phosphatase 76 U/L (35-105); Anion Gap 15.9 (5-19); Aspartate Amino Transferase 21 U/L (0-32); Blood Urea Nitrogen 16 mg/dL (6-20); Calcium 8.8 mg/dL (8.5-10.5); Carbon Dioxide 18 mmol/L (22-29); Chloride 105 mmol/L (98-107); Creatinine Clr Calc Pharmacy 82.3083; Glomerular Filtration Rate 64.5 mL/min (90-130); Glucose 201 mg/dL (65-115); Osmolality Calculated 285 mOsm/kg (285-295); Potassium 4.9 mmol/L (3.5-5.1); Sodium 134 mmol/L (136-145); Total Bilirubin 0.2 mg/dL (0.15-1.2); Total Protein 6.5 g/dL (6.6-8.7)
[2025-03-30 08:05] LABS: Glucose Point of Care 214 mg/dL (70-110)
[2025-03-30] MEDS: insulin lispro 100 unit/1 mL SUBCUT ×4 (08:19→21:25)
[2025-03-30] MEDS: polyethylene glycol 3350 Pkt 17 gm PO ×2 (08:20→17:16)
[2025-03-30] MEDS: insulin glargine 100 units/1 mL 50 UNIT SUBCUT ×2 (08:20→17:15)
[2025-03-30] MEDS: pregabalin 100 mg Capsule PO (08:20)
[2025-03-30] MEDS: duloxetine 60 mg Capsule PO (08:21)
[2025-03-30] MEDS: ticagrelor 90 mg Tablet PO ×2 (08:21→17:16)
[2025-03-30] MEDS: gabapentin 100 mg Capsule 200 MG PO (08:21)
[2025-03-30 08:53] LABS: Partial Thromboplastin Time 30.7 SECONDS (23.9-36.7)
[2025-03-30 09:57] LABS: Estmated Average Glucose 206; Hemoglobin A1C 8.8 % (4.0-6.0)
[2025-03-30 10:14] LABS: Procalcitonin 1.76 ng/mL (0-0.5); Thyroid Stimulating Hormone 0.57 uIU/mL (0.27-4.20); Vitamin B12 413 pg/mL (232-1245)
[2025-03-30 10:27] LABS: Iron 19 ug/dL (37-145); Percent Saturation 6.1 % (20-50); Total Iron Binding Capacity 311 mcg/dl; Unsaturated Iron Binding 292 ug/dL (112-347)
[2025-03-30] MEDS: azithromycin 250 mg Tablet 500 MG PO (10:40)
--- NOTE | 2025-03-30 12:23 | USCV_ITS ---
Mayra Ascencio Age: 59 Gender: F : 1965 Exam Date: 03/30/2025 07:42 Ordering Phys: Avila Marie MD Technologist: Bereket Mahoney Exam Location: [facility] [place] Indication: nstemi BP: 109 / 64 HR: 115 Rhythm: Sinus Technical Quality: Adequate MEASUREMENTS (Male / Female) Normal Values 2D ECHO LV Diastolic Diameter PLAX 4.1 cm 4.2 - 5.9 / 3.9 - 5.3 cm IVS Diastolic Thickness 1.6 cm 0.6 - 1.0 / 0.6 - 0.9 cm IVS Systolic Thickness 1.4 cm LVPW Diastolic Thickness 1.5 cm 0.6 - 1.0 / 0.6 - 0.9 cm LVPW Systolic Thickness 1.8 cm LVOT Diameter 2.0 cm LV Ejection Fraction 2D Teich 63.2 % LV Ejection Fraction MOD 4C 65.2 % LV Ejection Fraction MOD 2C 59.4 % LV Ejection Fraction 2C AL 60.2 % LA Diameter 4.5 cm RA Systolic Volume 4C AL 24.1 ml RA Systolic Volume 4C MOD 24.8 ml LA Sys Volume AL 84.7 cm cubed LA Sys Volume Index AL 38.1 cm cubed/m squared Aorta at Sinotubular Diameter 1.6 cm IVC Diameter 1.2 cm M-MODE LA Ao Ratio MM 1.9 AV Cusp Separation MM 1.1 cm DOPPLER AV Peak Velocity 267.0 cm/s LVOT Peak Velocity 96.0 cm/s AV Area Cont Eq vti 1.2 cm squared AV Area Cont Eq pk 1.1 cm squared MV Peak Velocity 164.0 cm/s MV Area PHT 7.2 cm squared Mitral E to A Ratio 1.2 TV Peak Velocity 393.3 cm/s TR Peak Velocity 419.0 cm/s TR Peak Gradient 70.2 mmHg TR Mean Velocity 305.0 cm/s TR Mean Gradient 41.6 mmHg TR Velocity Time Integral 98.4 cm PV Peak Velocity 130.0 cm/s RV Ejection Time 0.3 s FINDINGS Left Ventricle Normal left ventricular size and systolic function, EF 60%. .Mild to moderate concentric left ventricular hypertrophy. Mild hypokinesia of the basal inferior wall segment.Grade I/IV diastolic dysfunction (abnormal relaxation filling pattern), normal to mildly elevated filling pressures. Right Ventricle The right ventricle is normal in size and function. Right Atrium The right atrium is normal in size. Left Atrium Mildly increased left atrial size. Mitral Valve Moderate mitral valve regurgitation. Aortic Valve Moderate aortic valve stenosis, mean gradient 16.1 mmHg, MICHAEL 1.2 cm squared. Peak velocity of 2.7 m/s with a peak gradient of 29 mmHg Tricuspid Valve Trace to mild tricuspid valve regurgitation. Estimated pulmonary artery peak systolic pressure 45 mmHg Pulmonic Valve Trace pulmonary valve regurgitation. Pericardium Normal pericardium without effusion. Aorta Normal aortic annulus size. IVC Normal inferior vena cava. CONCLUSIONS Normal left ventricular size and systolic function, EF 60%. .Mild to moderate concentric left ventricular hypertrophy. Mild hypokinesia of the basal inferior wall segment.Grade I/IV diastolic dysfunction (abnormal relaxation filling pattern), normal to mildly elevated filling pressures. Mildly increased left atrial size. Moderate mitral valve regurgitation. Moderate aortic valve stenosis, mean gradient 16.1 mmHg, MICHAEL 1.2 cm squared. Peak velocity of 2.7 m/s with a peak gradient of 29 mmHg. Trace to mild tricuspid valve regurgitation. Estimated pulmonary artery peak systolic pressure 45 mmHg Trace pulmonary valve regurgitation. There is no pericardial effusion. There are no intracardiac masses. Compared to the study from 09/13/2021, there is development of aortic valve stenosis Dr Troy Joyce MD [facility] (Electronically Signed) Final Date: 30 March 2025 13:40 S
[2025-03-30 12:37] LABS: Glucose Point of Care 216 mg/dL (70-110)
[2025-03-30] MEDS: pantoprazole 40 mg SDV IVP (12:58)
[2025-03-30] MEDS: ipratropium 0.5 mg/2.5 mL Neb INHALATION ×2 (13:52→19:13)
[2025-03-30] MEDS: levalbuterol 0.63 mg/3 mL Neb INHALATION ×2 (13:52→19:13)
--- NOTE | 2025-03-30 14:33 | P.PN_ITS ---
Subjective 2 Subjective: Hospital course, labs appreciated. On examination patient is down to 5 L of oxygen supplementation. Saturating 90%. Awake and alert. States she feels she got sick after taking Suboxone which was a new medication which started for her within the last 4 days and her home dose of morphine has been discontinued. States Suboxone was making her more sleepy than usual. Has remained hemodynamically stable. Blood pressure stable. Levophed weaned off. Heart rate elevated. Vitals/I&O/Wt Last Vital Signs Temp 98.6 F 03/30/25 12:00 Pulse 118 H 03/30/25 13:56 Resp 18 03/30/25 13:53 BP 146/70 03/30/25 13:00 Pulse Ox 90 03/30/25 13:53 O2 Del Method High Flow Nasal Cannula 03/30/25 13:53 O2 Flow Rate 5 03/30/25 13:53 03/29/25 03/30/25 03/30/25 22:59 06:59 14:59 Intake Total 871.383 / 2056.399 752.101 / 2808.500 554.717 / 554.717 Output Total 1600 / 1600 1500 / 3100 Balance -728.617 / 456.399 -747.899 / -291.500 554.717 / 554.717 Weight last 48 hrs Weight 103.5 kg Weight 105 kg Weight 90.718 kg Physical Exam 2 Const: COMMON NORMALS: patient oriented x3 and alert GENERAL APPEARANCE: c ooperative ORIENTATION/CONSCIOUSNESS: Yes awake HENMT: COMMON NORMALS: oropharynx normal Neck/C-Spine: COMMON NORMALS: no JVD Resp: AUSCULTATION: diminished lung sounds Cardio: COMMON NORMALS: no JVD, regular rhythm, S1 normal heart sound present, S2 normal heart sound present and No murmurs present (Cardio) RHYTHM: regular rhythm HEART SOUNDS: S1 normal heart sound present and S2 normal heart sound present GI: COMMON NORMALS: Normal to inspection, nondistended, normoactive bowel sounds present, Soft to palpation and non-tender PALPATION: Yes Soft to palpation Extremity: COMMON NORMALS: no joint enlargement and no pedal edema N ARRATIVE EXTREMITY EXAM: Whole lower extremity digits amputated. Neuro: COMMON NORMALS: patient oriented x3 and moves all extremities S ENSORIUM/ORIENTATION: Yes alert Skin: COMMON NORMALS: no rashes or lesions noted GENERAL SKIN EXAM: no rashes or lesions noted Urinary Catheter Management: [place]: Cath Placed During This Visit: yes Reason for Continuing Indwelling Catheter: Accurate Measurement of Urinary Output in Critically Ill Patients Urinary Catheter Date of Insertion: 03/29/25 Urinary Catheter Time of Insertion: 14:36 Data 03/30/25 05:05 03/30/25 05:05 Micro: Microbiology 03/29/25 07:25 Urine Culture - Preliminary Urine,Clean Catch Gram Negative Rods 03/29/25 07:25 Legionella Urinary Antigen - Final Urine Kidney Bacterial Antigens - Final 03/29/25 07:12 Blood Culture - Preliminary Blood NEGATIVE TO DATE 03/29/25 07:12 Blood Culture - Preliminary Blood NEGATIVE TO DATE A&P Assessment and plan (1) Sepsis: Present on admission. SIRS: Tachycardic, Febrile, Leukocytosis Source: Multifocal pneumonia End organ damage: Non-ST elevation LA Lactic acid elevated on admission Patient did not receive full 30 mL/kg BW given concerns for heart failure. Blood culture, urine culture, MRSA swab, procalcitonin, urine Legionella, bacterial antigen. (2) Acute respiratory failure with hypoxia: Baseline on 2 L of oxygen to 10 L high flow. Currently on 5 L. Most likely in setting of mild CHF, COPD exacerbation in setting of multifocal bilateral pneumonia with concerns for aspiration. Oxygen supplementation keeping saturation over 88%. Wean accordingly. Aggressive pulmonary toilet with I-S. Out of bed to chair. (3) Diastolic heart failure: Echocardiogram done shows an EF of 60%, mild to moderate LVH, grade 1 diastolic dysfunction, moderate aortic stenosis, increased LA size, moderate MR. IV Lasix 40 mg one-time. Fluid restriction to less than 1500 cc. Strict input output charting, daily weights. (4) Multifocal pneumonia: Concern for aspiration pneumonia. Sputum culture. Follow-up blood culture. Patient has history of infection with ESBL E. coli. MRSA swab negative though patient does have history of MRSA infection in the past. Continue with IV meropenem. Add vancomycin. Aggressive pulmonary toilet with I-S and Acapella. Advance diet as per speech evaluation. Modified barium swallow as per speech evaluation. (5) NSTEMI (non-ST elevated myocardial infarction): Appreciate 6-hour troponin. Patient does have history of peripheral arterial disease, carotid artery stenosis. Did have chest pain on admission. Echocardiogram negative for regional wall motion abnormality. Continue with heparin drip. Patient will need further assessment of ACS with angiogram versus stress test. Continue with aspirin, ezetimibe. Add statin. Add metoprolol 25 mg twice daily. Monitor hemodynamics as patient was on Levophed in last 24 hours. (6) Pleuritic chest pain: Reports chest pain with inspiration. CT angiogram of the chest negative for PE. Noted incidentally mediastinal lymphadenopathy which she will need outpatient follow-up. Suspect pleuritic pain secondary to multifocal pneumonia. However, possible component of NSTEMI. (7) Constipation: Patient reports hard stools and difficulty with bowel movements. No diarrhea, vomiting, melena, or hematochezia. Add bowel regimen. (8) Moderate aortic stenosis: Plan Type 2 diabetes mellitus: Check A1c. Continue with Lantus 50 units twice daily. Insulin sliding scale moderate dose protocol. Uptitrate as per insulin requirement 4 hours. Full code Advance diet as per speech evaluation Heparin drip will be sufficient for DVT prophylaxis Protonix for PUD prophylaxis Restart other chronic medications. Appreciate med rec. Continue with gabapentin. Hold off on pregabalin. Restart cilostazol, oxybutynin. Hold off on Suboxone as patient does not want to be on Suboxone and thinks she was drowsy because of the same. Started morphine 1 mg every 4 hour as needed, Dilaudid oral 2 mg every 6 hours as needed. Patient has been on chronic pain medications. Watch for withdrawal. PDMP PDMP Reviewed: Last Reviewed 03/30/25 10:39 by Cornelius Joyce MD Attestations 2 Medical Necessity Statement*: Requires further hospitalization for management of acute hypoxic respiratory failure in setting of multifocal pneumonia, sepsis, diastolic heart failure, moderate aortic stenosis with concern for non-ST elevation [place] Diagnoses Sepsis A41.9 Acute respiratory failure with hypoxia J96.01 Acute diastolic heart failure I50.31 Heart failure chronicity: acute Multifocal pneumonia J18.9 NSTEMI (non-ST elevated myocardial infarction) I21.4 Pleuritic chest pain R07.81 Constipation K59.00 Moderate aortic stenosis I35.0
[2025-03-30] MEDS: gabapentin 300 mg Capsule PO ×2 (14:40→21:25)
[2025-03-30] MEDS: FUROsemide 10 mg/mL SDV 4mL 40 MG IVP (15:30)
[2025-03-30] MEDS: metoprolol tartrate 25 mg Tablet PO ×2 (15:30→21:25)
[2025-03-30] MEDS: vancomycin 1,500 MG/300 ML PIGGYBACK 200 MG IV (15:31)
[2025-03-30] MEDS: heparin drip 25,000 UNIT/500 ML PREMIX 47 UNIT IV (16:30)
[2025-03-30 16:37] LABS: Glucose Point of Care 233 mg/dL (70-110)
--- NOTE | 2025-03-30 16:48 | PHA.VACGOAL ---
Vancomycin Goal - Goal Vancomycin Goal:: 15-20 mg/L Vancomycin Indication:: Pneumonia (SEPSIS) - Therapy Current therapy:: Meropenem Day of therpy:: Day [1]of [] . Actual body weight (kg): 103.5 kg - Data Labs: WBC 22.63 10^3/uL (3.29-11.43) H 03/30/25 05:05 RBC 3.94 10^6/uL (3.85-5.65) 03/30/25 05:05 Hgb 8.60 g/dL (11.27-16.99) L 03/30/25 05:05 Hct 29.3 % (36-47) L 03/30/25 05:05 MCV 74.4 fl (85-98) L 03/30/25 05:05 MCH 21.8 pg (27-33) L 03/30/25 05:05 MCHC 29.4 g/dL (30-55) L 03/30/25 05:05 RDW 19.9 % (12.1-15.1) H 03/30/25 05:05 Sodium 134 mmol/L (136-145) L 03/30/25 05:05 Potassium 4.9 mmol/L (3.5-5.1) 03/30/25 05:05 Chloride 105 mmol/L (98-107) 03/30/25 05:05 Carbon Dioxide 18 mmol/L (22-29) L 03/30/25 05:05 Anion Gap 15.9 (5-19) 03/30/25 05:05 BUN 16 mg/dL (6-20) 03/30/25 05:05 Creatinine 0.9 mg/dL (0.5-0.9) 03/30/25 05:05 GFR Calculation 64.5 mL/min (90-130) L 03/30/25 05:05 Treatment plan:: new consult Regimen:: New start vancomycin for pneumonia/sepsis. Started on maintenance dose of 1500 mg q18h.
[2025-03-30] MEDS: morphine 4 mg/mL SDV 1 mL 2 MG IVP ×2 (17:22→21:26)
[2025-03-30 19:08] LABS: Partial Thromboplastin Time 35.3 SECONDS (23.9-36.7)
[2025-03-30] MEDS: cilostazol 100 mg Tablet PO (19:08)
[2025-03-30] MEDS: budesonide 0.5 mg/2 mL Neb INHALATION (19:13)
[2025-03-30] MEDS: HYDROmorphone tab 2 MG TABLET PO (19:43)
[2025-03-30 20:49] LABS: Glucose Point of Care 281 mg/dL (70-110)
[2025-03-30] MEDS: quetiapine 100 mg Tablet 200 MG PO (21:25)
[2025-03-31] VITALS (18 sets, daily range): BP systolic 108–138; BP diastolic 66–81; PULSE 94–110; RESP 17–22; TEMP 36.7–37; O2SAT 88–95
[2025-03-31] MEDS: ipratropium 0.5 mg/2.5 mL Neb INHALATION ×4 (01:24→20:40)
[2025-03-31] MEDS: levalbuterol 0.63 mg/3 mL Neb INHALATION ×4 (01:24→20:40)
[2025-03-31 01:28] LABS: Partial Thromboplastin Time 54.3 SECONDS (23.9-36.7)
[2025-03-31] MEDS: heparin 5,000 unit/mL INJ 1 mL IVP (01:58)
[2025-03-31] MEDS: HYDROmorphone tab 2 MG TABLET PO ×4 (01:58→19:48)
[2025-03-31] MEDS: heparin drip 25,000 UNIT/500 ML PREMIX 53 UNIT IV (02:58)
[2025-03-31] MEDS: meropenem 1,000 mg SDV 1000 MG IVP ×3 (04:04→19:48)
[2025-03-31] MEDS: methylPREDNISolone sod succ 40 mg/mL INJ 30 MG IVP ×3 (04:04→18:00)
[2025-03-31 04:18] LABS: Basophils # 0.1 10^3/uL (0.0-0.1); Basophils % 0.2 %; Hematocrit 29.1 % (36-47); Lymphocytes % 7.9 %; Mean Corpuscular HGB Conc 30.2 g/dL (30-55); Mean Corpuscular Hemoglobin 21.9 pg (27-33); Mean Corpuscular Volume 72.6 fl (85-98); Mean Platelet Volume 8.7 fL (7.4-10.4); Monocytes # 1.5 10^3/uL (0.2-0.9); Monocytes % 5.9 %; Neutrophils # 20.88 10^3/uL (1.8-7.7); Neutrophils % 84.7 %; Nucleated Red Blood Cells % 0 %; Platelet Count 499 10^3/cmm (157-399); Red Blood Count 4.01 10^6/uL (3.85-5.65); Red Cell Distribution Width 19.9 % (12.1-15.1); White Blood Count 24.67 10^3/uL (3.29-11.43)
[2025-03-31] MEDS: morphine 4 mg/mL SDV 1 mL 2 MG IVP ×4 (04:24→22:29)
[2025-03-31 04:38] LABS: Alanine Aminotransferase 18 U/L (0-33); Albumin Level 3.5 g/dL (3.5-5.2); Alkaline Phosphatase 88 U/L (35-105); Anion Gap 14.6 (5-19); Aspartate Amino Transferase 18 U/L (0-32); Blood Urea Nitrogen 25 mg/dL (6-20); Carbon Dioxide 23 mmol/L (22-29); Chloride 104 mmol/L (98-107); Creatinine Clr Calc Pharmacy 92.5969; Globulin 3.1 g/dL (1.3-4.6); Glomerular Filtration Rate 73.9 mL/min (90-130); Glucose 207 mg/dL (65-115); Osmolality Calculated 294 mOsm/kg (285-295); Potassium 4.6 mmol/L (3.5-5.1); Sodium 137 mmol/L (136-145); Total Bilirubin 0.2 mg/dL (0.15-1.2); Total Protein 6.6 g/dL (6.6-8.7)
[2025-03-31 04:39] LABS: Magnesium 2.2 mg/dL (1.7-2.3)
[2025-03-31 04:55] LABS: Folate Level 8.5 ng/mL (4.8-37.3)
[2025-03-31] MEDS: aspirin 81 mg EC Tablet PO (06:14)
[2025-03-31 06:33] LABS: Glucose Point of Care 221 mg/dL (70-110)
[2025-03-31] MEDS: budesonide 0.5 mg/2 mL Neb INHALATION ×2 (07:43→20:40)
[2025-03-31] MEDS: insulin glargine 100 units/1 mL 50 UNIT SUBCUT ×2 (08:23→17:58)
[2025-03-31] MEDS: insulin lispro 100 unit/1 mL SUBCUT ×4 (08:24→21:13)
[2025-03-31] MEDS: oxybutynin chloride XL 5 MG TABLET 20 MG PO (08:25)
[2025-03-31] MEDS: ticagrelor 90 mg Tablet PO ×2 (08:25→18:00)
[2025-03-31] MEDS: metoprolol tartrate 25 mg Tablet PO ×2 (08:26→21:13)
[2025-03-31] MEDS: azithromycin 250 mg Tablet 500 MG PO (08:26)
[2025-03-31] MEDS: polyethylene glycol 3350 Pkt 17 gm PO ×2 (08:26→18:00)
[2025-03-31] MEDS: gabapentin 300 mg Capsule PO ×3 (08:26→21:13)
[2025-03-31] MEDS: duloxetine 60 mg Capsule PO (08:26)
[2025-03-31] MEDS: vancomycin 1,500 MG/300 ML PIGGYBACK 200 MG IV (08:30)
[2025-03-31 08:41] LABS: Partial Thromboplastin Time > 250.0 SECONDS (23.9-36.7)
[2025-03-31] MEDS: cilostazol 100 mg Tablet PO (09:36)
[2025-03-31 10:53] LABS: Glucose Point of Care 210 mg/dL (70-110)
[2025-03-31] MEDS: pantoprazole 40 mg SDV IVP (11:40)
--- NOTE | 2025-03-31 13:50 | PC.NURSE ---
PTT came back as critical this morning. Heparin drip paused at 0845. Per Dr Joyce will repeat PTT and resume Heparin drip at half the rate it was. PTT ordered for 1445.
--- NOTE | 2025-03-31 14:10 | P.PN_ITS ---
Subjective 2 Subjective: No acute vents overnight. States feeling a lot better. Seen sitting up in bed having her meals. Down to 4 L of oxygen supplementation. States pain is well- controlled for now. Vitals/I&O/Wt Last Vital Signs Temp 98.2 F 03/31/25 12:12 Pulse 96 03/31/25 12:12 Resp 18 03/31/25 12:12 BP 123/74 03/31/25 12:12 Pulse Ox 92 03/31/25 12:12 O2 Del Method Nasal Cannula 03/31/25 12:12 O2 Flow Rate 6 03/31/25 07:44 03/30/25 03/31/25 03/31/25 22:59 06:59 14:59 Intake Total 836.9 / 1506.900 373.1 / 1880.000 966.517 / 966.517 Output Total 3850 / 5750 700 / 6450 800 / 800 Balance -3013.1 / -4243.100 -326.9 / -4570.000 166.517 / 166.517 Weight last 48 hrs Weight 102.104 kg Weight 103.5 kg Physical Exam 2 Const: COMMON NORMALS: patient oriented x3 and alert GENERAL APPEARANCE: c ooperative ORIENTATION/CONSCIOUSNESS: Yes awake HENMT: COMMON NORMALS: oropharynx normal Neck/C-Spine: COMMON NORMALS: no JVD Resp: AUSCULTATION: diminished lung sounds Cardio: COMMON NORMALS: no JVD, regular rhythm, S1 normal heart sound present, S2 normal heart sound present and No murmurs present (Cardio) RHYTHM: regular rhythm HEART SOUNDS: S1 normal heart sound present and S2 normal heart sound present GI: COMMON NORMALS: Normal to inspection, nondistended, normoactive bowel sounds present, Soft to palpation and non-tender PALPATION: Yes Soft to palpation Extremity: COMMON NORMALS: no joint enlargement and no pedal edema N ARRATIVE EXTREMITY EXAM: Whole lower extremity digits amputated. Neuro: COMMON NORMALS: patient oriented x3 and moves all extremities S ENSORIUM/ORIENTATION: Yes alert Skin: COMMON NORMALS: no rashes or lesions noted GENERAL SKIN EXAM: no rashes or lesions noted Urinary Catheter Management: [place]: Cath Placed During This Visit: yes Reason for Continuing Indwelling Catheter: Acute Urinary Retention or Obstruction Urinary Catheter Date of Insertion: 03/29/25 Urinary Catheter Time of Insertion: 14:36 Data 03/31/25 04:05 03/31/25 04:05 Micro: Microbiology 03/29/25 07:25 Urine Culture - Final Urine,Clean Catch Escherichia coli 03/29/25 07:25 Legionella Urinary Antigen - Final Urine Kidney Bacterial Antigens - Final A&P Assessment and plan (1) Sepsis: Present on admission. SIRS: Tachycardic, Febrile, Leukocytosis Source: Multifocal pneumonia End organ damage: Non-ST elevation [place], respiratory failure Lactic acid elevated on admission Patient did not receive full 30 mL/kg BW given concerns for heart failure. Blood culture, urine culture, trend procalcitonin, urine Legionella, bacterial antigen. (2) Acute respiratory failure with hypoxia: Baseline on 2 L of oxygen, on admission 10 L high flow. Currently on 5 L. Most likely in setting of mild CHF, COPD exacerbation in setting of multifocal bilateral pneumonia with concerns for aspiration. Oxygen supplementation keeping saturation over 88%. Wean accordingly. Aggressive pulmonary toilet with I-S. Out of bed to chair. (3) Diastolic heart failure: Echocardiogram done shows an EF of 60%, mild to moderate LVH, grade 1 diastolic dysfunction, moderate aortic stenosis, increased LA size, moderate MR. IV Lasix 40 mg one-time. Fluid restriction to less than 1500 cc. Strict input output charting, daily weights. (4) Multifocal pneumonia: Concern for aspiration pneumonia. Sputum culture. Follow-up blood culture. Patient has history of infection with ESBL E. coli. MRSA swab negative though patient does have history of MRSA infection in the past. Continue with IV meropenem, vancomycin, azithromycin for 3 days for atypical coverage. Aggressive pulmonary toilet with I-S and Acapella. Advance diet as per speech evaluation. Modified barium swallow as per speech evaluation. (5) NSTEMI (non-ST elevated myocardial infarction): Appreciate 6-hour troponin. Patient does have history of peripheral arterial disease, carotid artery stenosis. Did have chest pain on admission. Echocardiogram negative for regional wall motion abnormality. Continue with heparin drip. Patient will need further assessment of ACS with angiogram versus stress test. Continue with aspirin, ezetimibe, metoprolol 25 mg twice daily. (6) Pleuritic chest pain: Reports chest pain with inspiration. CT angiogram of the chest negative for PE. Noted incidentally mediastinal lymphadenopathy which she will need outpatient follow-up. Suspect pleuritic pain secondary to multifocal pneumonia. However, possible component of NSTEMI. (7) Constipation: Patient reports hard stools and difficulty with bowel movements. No diarrhea, vomiting, melena, or hematochezia. Add bowel regimen. (8) Moderate aortic stenosis: Plan Type 2 diabetes mellitus: A1c 8.8. Continue with Lantus 50 units twice daily. Insulin sliding scale moderate dose protocol. Uptitrate as per insulin requirement 4 hours. Full code Advance diet as per speech evaluation Heparin drip will be sufficient for DVT prophylaxis Protonix for PUD prophylaxis Restart other chronic medications. Appreciate med rec. Continue with gabapentin. Hold off on pregabalin. Restart oxybutynin. Hold off on Suboxone as patient does not want to be on Suboxone and thinks she was drowsy because of the same. Started morphine 1 mg every 4 hour as needed, Dilaudid oral 2 mg every 6 hours as needed. Patient has been on chronic pain medications. Watch for withdrawal. PDMP PDMP Reviewed: Last Reviewed 03/30/25 10:39 by Cornelius Joyce MD Attestations 2 Medical Necessity Statement*: Requires further hospitalization for management of sepsis, aspiration pneumonia, hypoxic respiratory failure, UTI with concerns for demand ischemia versus non-ST elevation [place] Diagnoses Sepsis A41.9 Acute respiratory failure with hypoxia J96.01 Acute diastolic heart failure I50.31 Heart failure chronicity: acute Multifocal pneumonia J18.9 NSTEMI (non-ST elevated myocardial infarction) I21.4 Pleuritic chest pain R07.81 Constipation K59.00 Moderate aortic stenosis I35.0
[2025-03-31] MEDS: FUROsemide 10 mg/mL SDV 4mL 40 MG IVP (14:41)
[2025-03-31 14:49] LABS: Procalcitonin 1.19 ng/mL (0-0.5)
[2025-03-31 15:14] LABS: Partial Thromboplastin Time 120.7 SECONDS (23.9-36.7)
[2025-03-31 16:18] LABS: Glucose Point of Care 228 mg/dL (70-110)
[2025-03-31 19:22] LABS: Partial Thromboplastin Time 79.8 SECONDS (23.9-36.7)
[2025-03-31 20:32] LABS: Glucose Point of Care 202 mg/dL (70-110)
[2025-03-31] MEDS: quetiapine 100 mg Tablet 200 MG PO (21:13)
[2025-04-01] VITALS (15 sets, daily range): BP systolic 117–151; BP diastolic 68–78; PULSE 72–96; RESP 16–20; TEMP 36.5–36.8; O2SAT 92–96
[2025-04-01] MEDS: levalbuterol 0.63 mg/3 mL Neb INHALATION ×4 (02:03→19:45)
[2025-04-01] MEDS: ipratropium 0.5 mg/2.5 mL Neb INHALATION ×4 (02:03→19:45)
[2025-04-01 02:16] LABS: Basophils # 0.1 10^3/uL (0.0-0.1); Basophils % 0.2 %; Lymphocytes # 3.3 10^3/uL (0.8-4.8); Lymphocytes % 12.7 %; Mean Corpuscular HGB Conc 30.3 g/dL (30-55); Mean Corpuscular Volume 72.6 fl (85-98); Mean Platelet Volume 8.9 fL (7.4-10.4); Monocytes % 7.7 %; Neutrophils # 19.95 10^3/uL (1.8-7.7); Neutrophils % 76.5 %; Nucleated Red Blood Cells % 0.1 %; Platelet Count 531 10^3/cmm (157-399); Red Blood Count 4.27 10^6/uL (3.85-5.65); Red Cell Distribution Width 19.9 % (12.1-15.1); White Blood Count 26.08 10^3/uL (3.29-11.43)
[2025-04-01] MEDS: HYDROmorphone tab 2 MG TABLET PO ×4 (02:16→21:37)
[2025-04-01] MEDS: vancomycin 1,500 MG/300 ML PIGGYBACK 200 MG IV (02:16)
[2025-04-01 02:33] LABS: Alanine Aminotransferase 16 U/L (0-33); Albumin Level 3.6 g/dL (3.5-5.2); Alkaline Phosphatase 77 U/L (35-105); Anion Gap 15.8 (5-19); Aspartate Amino Transferase 11 U/L (0-32); Blood Urea Nitrogen 30 mg/dL (6-20); Calcium 9.4 mg/dL (8.5-10.5); Carbon Dioxide 25 mmol/L (22-29); Chloride 103 mmol/L (98-107); Creatinine Clr Calc Pharmacy 105.0434; Globulin 3.2 g/dL (1.3-4.6); Glomerular Filtration Rate 86.2 mL/min (90-130); Glucose 137 mg/dL (65-115); Osmolality Calculated 296 mOsm/kg (285-295); Potassium 4.8 mmol/L (3.5-5.1); Sodium 139 mmol/L (136-145); Total Bilirubin 0.2 mg/dL (0.15-1.2); Total Protein 6.8 g/dL (6.6-8.7)
[2025-04-01 02:41] LABS: Partial Thromboplastin Time 136.4 SECONDS (23.9-36.7)
[2025-04-01 02:45] LABS: Magnesium 2.2 mg/dL (1.7-2.3)
[2025-04-01] MEDS: heparin drip 25,000 UNIT/500 ML PREMIX 20.5 UNIT IV (02:58)
[2025-04-01] MEDS: meropenem 1,000 mg SDV 1000 MG IVP ×2 (05:08→11:52)
[2025-04-01] MEDS: morphine 4 mg/mL SDV 1 mL 2 MG IVP ×2 (05:08→19:33)
[2025-04-01] MEDS: aspirin 81 mg EC Tablet PO (05:09)
[2025-04-01 06:27] LABS: Glucose Point of Care 181 mg/dL (70-110)
[2025-04-01 06:59] LABS: Partial Thromboplastin Time 30.9 SECONDS (23.9-36.7)
[2025-04-01] MEDS: budesonide 0.5 mg/2 mL Neb INHALATION ×2 (07:49→19:45)
[2025-04-01] MEDS: insulin lispro 100 unit/1 mL SUBCUT ×2 (08:23→20:32)
[2025-04-01] MEDS: methylPREDNISolone sod succ 40 mg/mL INJ 30 MG IVP (08:24)
[2025-04-01] MEDS: gabapentin 300 mg Capsule PO ×2 (08:25→16:52)
[2025-04-01] MEDS: duloxetine 60 mg Capsule PO (08:25)
[2025-04-01] MEDS: metoprolol tartrate 25 mg Tablet PO ×2 (08:25→20:32)
[2025-04-01] MEDS: ticagrelor 90 mg Tablet PO ×2 (08:25→16:51)
[2025-04-01] MEDS: polyethylene glycol 3350 Pkt 17 gm PO ×2 (08:25→16:51)
[2025-04-01] MEDS: oxybutynin chloride XL 5 MG TABLET 20 MG PO (08:26)
[2025-04-01] MEDS: azithromycin 250 mg Tablet 500 MG PO (08:26)
--- NOTE | 2025-04-01 08:30 | FL_ITS ---
WS: [id number] MODIFIED BARIUM SWALLOW HISTORY: Oropharyngeal dysphagia FLUOROSCOPY TIME: 2min [id number] # of spot films: [id number] Modified barium swallow was performed by the speech pathologist. Fluoroscopy was provided with the patient in a lateral projection. Multiple food consistencies were provided. A few episodes of laryngeal penetration were noted with the thinner liquids. No aspiration. No coughing elicited. Patient was able to swallow all food consistencies without difficulty. Barium tablet was also swallowed without difficulty. FL/FL barium swallow modifd [id number] IMPRESSION: 1. No aspiration. 2. Minimal laryngeal penetration with some of the liquids. Please see speech therapist report also for recommendations.
[2025-04-01] MEDS: insulin glargine 100 units/1 mL 50 UNIT SUBCUT ×2 (08:34→16:52)
[2025-04-01 09:53] LABS: Partial Thromboplastin Time 104.9 SECONDS (23.9-36.7)
[2025-04-01 10:53] LABS: Glucose Point of Care 110 mg/dL (70-110)
--- NOTE | 2025-04-01 10:58 | PC.NURSE ---
Dr. Narvaez verbally states that the Heparin drip can be discontinued. Tobias WALDEN and Jennifer WALDEN present.
[2025-04-01] MEDS: CELEcoxib 200 mg Capsule 400 MG PO (11:51)
--- NOTE | 2025-04-01 13:36 | PICC.NOTE ---
IMM Updated Updated pt on IMM. No questions voiced. Provided pt a copy. Initialed, dated, & timed a copy & placed in chart.
--- NOTE | 2025-04-01 14:06 | P.PN_ITS ---
Subjective 2 Subjective: Patient reports cough that is not improving. Otherwise asking for increased dose of pain medication Vitals/I&O/Wt Last Vital Signs Temp 98.0 F 04/01/25 07:27 Pulse 88 04/01/25 13:04 Resp 20 H 04/01/25 13:01 BP 120/70 04/01/25 11:02 Pulse Ox 95 04/01/25 13:01 O2 Del Method High Flow Nasal Cannula 04/01/25 13:01 O2 Flow Rate 3 04/01/25 13:01 03/31/25 04/01/25 04/01/25 22:59 06:59 14:59 Intake Total 723.6 / 1690.117 489.883 / 2180.000 480 / 480 Output Total 3850 / 4650 800 / 5450 1600 / 1600 Balance -3126.4 / -2959.883 -310.117 / -3270.000 -1120 / -1120 Weight last 48 hrs Weight 102.058 kg Weight 102.104 kg Physical Exam 2 Narrative: Alert and oriented nonfocal no acute distress, overweight Heart regular normal S1-S2 without murmurs clicks gallops or rubs Lungs diminished breath sounds with scattered rhonchi bilaterally Abdomen obese soft nontender nondistended positive bowel sounds no hepatosplenomegaly Extremities no clubbing cyanosis or edema. 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 SIRS: Tachycardic, Febrile, Leukocytosis Source: Multifocal pneumonia End organ damage: Non-ST elevation [place], respiratory failure Lactic acid elevated on admission Patient did not receive full 30 mL/kg BW given concerns for heart failure. 03/29 blood cultures negative Urine culture positive for E. coli Legionella antigen presumptive negative negative bacterial antigens x 5 (2) Acute respiratory failure with hypoxia: Baseline on 2 L of oxygen, on admission 10 L high flow. Currently on 5 L. Most likely in setting of mild CHF, COPD exacerbation in setting of multifocal bilateral pneumonia with concerns for aspiration. Aggressive pulmonary toilet with I-S. Out of bed to chair. (3) Diastolic heart failure: Echocardiogram done shows an EF of 60%, mild to moderate LVH, grade 1 diastolic dysfunction, moderate aortic stenosis, increased LA size, moderate MR. Consider Lasix dosing as she takes as needed at home Strict input output charting, daily weights. (4) Multifocal pneumonia: Due to lethargy there was concern for aspiration pneumonia. She was apparently unintentionally overdosed on Suboxone. Barium swallow shows no overt aspiration but mild laryngeal penetration with some liquids WBC count increasing change meropenem to Zosyn and vancomycin Aggressive pulmonary toilet with I-S and Acapella. Advance diet as per speech evaluation. (5) NSTEMI (non-ST elevated myocardial infarction): Echocardiogram negative for regional wall motion abnormality. Continue with heparin drip. Patient will need further assessment of ACS with angiogram versus stress test. Continue with aspirin, ezetimibe, metoprolol 25 mg twice daily. (6) Pleuritic chest pain: Reports chest pain with inspiration. CT angiogram of the chest negative for PE. Noted incidentally mediastinal lymphadenopathy which she will need outpatient follow-up. Suspect pleuritic pain secondary to multifocal pneumonia.. (7) Constipation: Patient reports hard stools and difficulty with bowel movements. No diarrhea, vomiting, melena, or hematochezia. on bowel regimen. (8) Moderate aortic stenosis: Plan Type 2 diabetes mellitus: A1c 8.8. Continue with Lantus 50 units twice daily. Insulin sliding scale moderate dose protocol. cardiology consult for + troponins. Full code Advance diet as per speech evaluation Heparin drip will be sufficient for DVT prophylaxis Protonix for PUD prophylaxis chronic pain from RA? and fibromyalagia. has been on chronic opioids. She is requesting increase. Will not increase dose of opioids will add nonopioid therapy. She is already on Cymbalta. That helps with chronic pain. Will add Celebrex at high dose. PDMP PDMP Reviewed: Not Reviewed Attestations 2 Medical Necessity Statement*: Patient with non-STEMI and multifocal pneumonia. Requires continued hospitalization for prevention of complications. Coding Level of Care Code Acute Code for Chg Fwd Diagnoses Sepsis A41.9 Acute respiratory failure with hypoxia J96.01 Acute diastolic heart failure I50.31 Heart failure chronicity: acute Multifocal pneumonia J18.9 NSTEMI (non-ST elevated myocardial infarction) I21.4 Pleuritic chest pain R07.81 Constipation K59.00 Moderate aortic stenosis I35.0
--- NOTE | 2025-04-01 15:09 | PM.CONSULT ---
Documented by User: Yessenia Gibson NP 04/01/25 15:25 Providers/Reason For Consult Consulting Physician/Specialty*: Dr. Lyles Reason for Consult*: Elevated troponin Requesting Physician: Dr. Rodney Attending Physician: Brett Arias DO Primary Care Provider: Javier Shields MD History of Present Illness History of Present Illness Mayra Ascencio is a 59 year old female somewhat of a poor historian, who cam into the ED three days ago for shortness of breath. She has a hx of PAD, CAD requiring a stent to the circ by Dr. Jerome in , COPD, seizure disorder, hyperlipidemia, and hypertension. She states that she had previously been prescribed Suboxone, and she started shaking and became short of breath and her son was with her and called EMS. On admission she was found to have fever 100.9 leukocytosis white blood cell of 23 hypoxemia with O2 sat of 61.6% on nasal cannula, abnormal troponin levels 44-88-120, CT of chest showing multifocal pneumonia, UTI. She was given a 1 L fluid bolus and started on antibiotics. At that time she was requiring high flow nasal cannula. She is currently on 3 L nasal cannula. She denies any recent chest pain. Her main complaint is pain in her back and legs, which is chronic. She was placed on a heparin drip for elevated troponin. Echo was obtained that showed EF of 60% with mild hypokinesia of the basal inferior wall segment, moderate aortic stenosis. EKG originally showed sinus tachycardia without any acute ST elevation or t wave abnormalities. Review of Systems Narrative: Reports lower extremity pain and chronic back pain Denies any chest pain or pressure Denies any shortness of breath Denies any lower extremity edema Reports productive cough Denies any abnormal neurological symptoms Reports weakness in the lower extremities chronic Denies nausea or vomiting Medications/Allergies Home Medications ?Medication ?Instructions ?Recorded ?Confirmed ?Last Taken ?Type blood sugar diagnostic (Blood #50 ea 08/10/23 03/29/25 Unknown Rx Glucose Test strips) lancets #100 ea 11/28/23 03/29/25 Unknown Rx albuterol sulfate 90 mcg/actuation 2 puff inhalation Q6H PRN 01/10/24 03/29/25 11/14/24 18:00 Rx aerosol inhaler shortness of breath or wheezing #8.5 grams blood sugar diagnostic (Blood #100 ea 01/10/24 03/29/25 Unknown Rx Glucose Test strips) blood-glucose meter #1 ea 01/10/24 03/29/25 Unknown Rx aspirin 81 mg tablet,delayed 81 mg PO QAM #30 tabs 03/20/24 03/29/25 03/28/25 Rx release cyclobenzaprine 10 mg tablet 10 mg PO TID PRN Muscle Spasm #90 04/16/24 03/29/25 11/14/24 18:00 Rx tabs duloxetine 60 mg capsule,delayed 60 mg PO DAILY #30 caps 04/16/24 03/29/25 03/28/25 Rx release epinephrine 0.3 mg/0.3 mL 0.3 mg (0.3 mL) IM Q4H PRN 04/16/24 03/29/25 07/23/24 Rx injection, auto-injector (EpiPen anaphylaxis #2 ea 2-Pankaj) nitroglycerin 0.4 mg sublingual 0.4 mg sublingual Q5M PRN Chest 04/16/24 03/29/25 10/26/24 Rx tablet (Nitrostat) Pain #30 tabs pen needle, diabetic 31 gauge x #100 ea 04/16/24 03/29/25 Unknown Rx 5/16 (Comfort EZ Pen [place]) pen needle, diabetic 32 gauge x #100 ea 04/16/24 03/29/25 Unknown Rx 5/32 (Comfort EZ Pen [place]) quetiapine 200 mg tablet 200 mg PO BEDTIME #30 tabs 04/16/24 03/29/25 03/28/25 Rx Wheel chair #1 ea 07/19/24 03/29/25 Unknown Rx metformin 500 mg tablet 500 mg PO BID 07/24/24 03/29/25 03/28/25 History Diabetic shoes with 3 sets of #1 ea 08/09/24 03/29/25 Unknown Rx insoles and toe filler to right furosemide 40 mg tablet 40 mg PO DAILY PRN Edema 10/25/24 03/29/25 10/26/24 History gabapentin 300 mg capsule 300 mg PO TID 10/25/24 03/29/25 03/28/25 History insulin glargine 100 unit/mL (3 50 unit SUBCUT BID 10/25/24 03/29/25 03/28/25 History mL) subcutaneous pen (Lantus Solostar U-100 Insulin) oxybutynin chloride 10 mg 20 mg PO DAILY 10/25/24 03/29/25 03/28/25 History tablet,extended release 24 hr varenicline tartrate 1 mg tablet 1 mg PO BID 10/25/24 03/29/25 03/28/25 History dulaglutide 1.5 mg/0.5 mL 1.5 mg SUBCUT Q7D 10/27/24 03/29/25 03/27/25 History subcutaneous pen injector (Trulicity) ezetimibe 10 mg tablet 10 mg PO DAILY #30 tabs 02/04/25 03/29/25 03/28/25 Rx losartan 50 mg tablet 50 mg PO DAILY@0800 #30 tabs 03/06/25 03/29/25 03/28/25 Rx ticagrelor 90 mg tablet (Brilinta) 90 mg PO BID #180 tabs 03/06/25 03/29/25 03/28/25 Rx buprenorphine 2 mg-naloxone 0.5 mg See Rx Instructions .Route .COMPLEX 03/29/25 03/29/25 Unknown History sublingual tablet cilostazol 100 mg tablet 100 mg PO BID 03/29/25 03/29/25 03/28/25 History dorzolamide 22.3 mg-timolol 6.8 1 drp ophthalmic (eye) BID 03/29/25 03/29/25 03/28/25 History mg/mL eye drops empagliflozin 25 mg tablet 25 mg PO DAILY 03/29/25 03/29/25 03/28/25 History (Jardiance) neomycin 3.5 mg/g-polymyxin B See Rx Instructions .Route .COMPLEX 03/29/25 03/29/25 03/28/25 History 10,000 unit/g-dexameth 0.1 % eye oint pantoprazole 40 mg tablet,delayed 40 mg PO QAM PRN Acid Reflux 03/29/25 03/29/25 Unknown History release pregabalin 300 mg capsule 300 mg PO BID 03/29/25 03/29/25 03/28/25 History sulfamethoxazole 800 1 tab PO BID 03/29/25 03/29/25 03/28/25 History mg-trimethoprim 160 mg tablet tramadol 50 mg tablet 50 - 100 mg PO Q6H PRN Pain 03/29/25 03/29/25 Unknown History Allergies Allergy/AdvReac Type Severity Reaction Status Date / Time doxycycline Allergy Mild ADR-Photose Verified 03/06/25 08:44 nsitivity fentanyl Allergy Unknown ALGY-Difficulty Verified 03/06/25 08:44 Breathing adhesive Allergy Unknown Verified 03/06/25 08:44 codeine Allergy Unknown Verified 03/06/25 08:44 hydrocodone Allergy ADR-Itching Verified 03/06/25 08:44 latex Allergy ALGY-Swell Verified 03/06/25 08:44 Lip/Tongue/Throat naproxen (From Naprosyn) Allergy Unknown Verified 03/06/25 08:44 nut - unspecified Allergy ALGY-Anaphy Verified 03/06/25 08:44 laxis Penicillins Allergy Unknown Verified 03/06/25 08:44 tramadol Allergy ADR-Itching Verified 03/06/25 08:44 Current Medications Generic Name Dose Route Start Last Admin Trade Name Freq PRN Reason Stop Dose Admin Aspirin 81 mg 03/29/25 12:25 04/01/25 05:09 Aspirin 81 Mg Ec Tablet PO 81 mg QAM YUSUF Administration Budesonide 0.5 mg 03/30/25 09:35 04/01/25 07:49 Budesonide 0.5 Mg/2 Ml Neb INHALATION 0.5 mg BID.RESPIRATORY YUSUF Administration Duloxetine HCl 60 mg 03/30/25 09:00 04/01/25 08:25 Duloxetine 60 Mg Capsule PO 60 mg DAILY YUSUF Administration Hydromorphone HCl 2 mg 03/30/25 14:28 04/01/25 08:34 Hydromorphone Tab 2 Mg Tablet PO 2 mg Q6H PRN Administration pain scale 6-10 Insulin Glargine 50 unit 03/29/25 18:00 04/01/25 08:34 Insulin Glargine 100 Units/1 Ml SUBCUT 50 unit BID YUSUF Administration Insulin Human Lispro 0 unit 03/29/25 18:00 04/01/25 11:11 Insulin Lispro 100 Unit/1 Ml SUBCUT Not Given WM&BEDTIME YUSUF Protocol Ipratropium [place] 0.5 mg 03/30/25 14:00 04/01/25 13:01 Ipratropium 0.5 Mg/2.5 Ml Neb INHALATION 0.5 mg Q6H.RESP YUSUF Administration Levalbuterol HCl 0.63 mg 03/30/25 14:00 04/01/25 13:01 Levalbuterol 0.63 Mg/3 Ml Neb INHALATION 0.63 mg Q6H.RESP YUSUF Administration Metoprolol Tartrate 25 mg 03/30/25 14:25 04/01/25 08:25 Metoprolol Tartrate 25 Mg Tablet PO 25 mg BID@0900,2100 YUSUF Administration Morphine Sulfate 2 mg 03/30/25 10:42 04/01/25 05:08 Morphine 4 Mg/Ml Sdv 1 Ml IVP 2 mg Q4H PRN Administration SEVERE PAIN Oxybutynin Chloride 20 mg 03/31/25 09:00 04/01/25 08:26 Oxybutynin Chloride Xl 5 Mg Tablet PO 20 mg DAILY YUSUF Administration Polyethylene Glycol 17 gm 03/29/25 18:00 04/01/25 08:25 Polyethylene Glycol 3350 Pkt 17 Gm PO 17 gm BID YUSUF Administration Quetiapine Fumarate 200 mg 03/29/25 21:00 03/31/25 21:13 Quetiapine 100 Mg Tablet PO 200 mg BEDTIME YUSUF Administration Ticagrelor 90 mg 03/29/25 18:00 04/01/25 08:25 Ticagrelor 90 Mg Tablet PO 90 mg BID YUSUF Administration PFSH Acute PFSH: Medical History (Updated 03/30/25 @ 14:47 by Cornelius Joyce MD) Moderate aortic stenosis NSTEMI (non-ST elevated myocardial infarction) Thought to be secondary to plaque rupture. Angiogram July 04 no flow-limiting lesions, or restenosis of previous stent from April 2020 Chronic migraine without aura, intractable, with status migrainosus Hemiparesis affecting right side as late effect of cerebrovascular accident Generalized epilepsy Equinus contracture of left ankle Amputated toe of left foot Amputated toe of right foot Septic arthritis suspected Osteomyelitis of ankle or foot, right, acute Acute osteomyelitis of right foot Acute respiratory failure with hypoxia PAD (peripheral artery disease) Hammertoe of left foot Thrombocytosis, unspecified Diabetes Cellulitis Essential hypertension Depression Anemia 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 COPD (chronic obstructive pulmonary disease) Hypersensitivity pneumonitis Rheumatoid arthritis Infection of total left knee replacement Right wrist deformity History of stroke Acute exacerbation of chronic obstructive pulmonary disease (COPD) Acute encephalopathy Acute alteration in mental status Sepsis Sacral pressure ulcer Cellulitis of gluteal region Seizure disorder Hypoxemia Seizure UTI (urinary tract infection) Chronic, continuous use of opioids Seizures Acute and chronic respiratory failure with hypoxia Pneumonia Pneumonia Acute hypoxemic respiratory failure Stenosis of left internal carotid artery with cerebral infarction Diabetic foot ulcer Right arm weakness Hoarseness of voice Sepsis Numbness and tingling in both hands Urinary tract infection Chest pain Syncope Needs flu shot Carpal tunnel syndrome, right Urinary incontinence Chronic knee pain Abnormal stress test CAD (coronary artery disease) Acute exacerbation of CHF (congestive heart failure) Unstable angina COPD exacerbation Exposure to COVID-19 virus Compression fracture of L2 lumbar vertebra Right hip pain Dyspnea (HFpEF) heart failure with preserved ejection fraction Candidiasis of vagina History of CVA (cerebrovascular accident) Elevated troponin Pericardial effusion Pressure ulcer Prosthetic joint infection Septic arthritis of knee, left Osteoarthritis of left knee History of hypoglycemic coma Obesity (BMI 35.0-39.9 without comorbidity) Peripheral sensory neuropathy due to type 2 diabetes mellitus Coronary artery disease due to type 2 diabetes mellitus Diabetes type 2, uncontrolled Neuropathy Insomnia Fibromyalgia, primary Hyperlipidemia, mixed CVA (cerebral vascular accident) Dyslipidemia Leukocytosis Chronic obstructive pulmonary disease, unspecified Vitamin D deficiency Type 2 diabetes mellitus with diabetic autonomic (poly)neuropathy Essential hypertension Encounter for long-term opiate analgesic use Opioid contract exists Current every day smoker Chronic pain of left knee Low back pain radiating to both legs Intervertebral disc disorder of lumbar region with myelopathy Lumbosacral spondylosis without myelopathy Osteoarthritis of spine at multiple levels Chronic left-sided low back pain Surgical History (Updated 03/30/25 @ 14:41 by Cornelius oJyce MD) History of amputation of great toe of both feet Status post left knee replacement History of coronary angiogram Angiogram April 2020 with 90% circumflex lesion, drug-eluting stent placed by Dr. Jerome Status post lumbar laminectomy S/P lumbar fusion DR. Shreya ZAYAS IN [place], [place] L4-L5, L5-S1 S/p bilateral carpal tunnel release History of arthroscopic surgery of elbow BILATERAL S/P hysterectomy S/P knee surgery RIGHT Family History Other CAD (coronary artery disease) Cancer Diabetes Social History Smoking and tobacco/nicotine status: current every day tobacco/nicotine user (vaping) cigarettes Packs smoked per day: 0.5 Years cigarettes smoked: 10 [ Other cigarette details: PER PATIENT REPORT] Alcohol intake: former Substance/Drug Use: never Caregiver/support person: Yes Lives independently: No Housing: Skilled Nursing Marital status: Unknown Marital status details: She and son state she is not service: No Current occupational status: unemployed Pets and animals: Yes Do you think of yourself as: Straight/Heterosexual Current gender identity: Female Vitals/I&O/Wt Last Vital Signs Temp 98.0 F 04/01/25 07:27 Pulse 88 04/01/25 13:04 Resp 20 H 04/01/25 13:01 BP 120/70 04/01/25 11:02 Pulse Ox 95 04/01/25 13:01 O2 Del Method High Flow Nasal Cannula 04/01/25 13:01 O2 Flow Rate 3 04/01/25 13:01 04/01/25 04/01/25 04/01/25 06:59 14:59 22:59 Intake Total 489.883 / 2180.000 480 / 480 Output Total 800 / 5450 1600 / 1600 Balance -310.117 / -3270.000 -1120 / -1120 Weight last 48 hrs Weight 225 lb Weight 225 lb 1.6 oz Physical Exam Narrative: General: No apparent distress, healthy appearing, well nourished HENMT: normoceophalic Muskuloskeletal: Full ROM Respiratory: Normal respiratory effort, clear to auscultation bilaterally throughout all lung yo, no use of accessory muscles Cardio: No JVD, regular rate, regular rhythm, S1 S2 normal, no murmurs, peripheral pulses 2+ radial palpated bilaterally, 2+ palpable PT palpated bilaterally Extremities: Full ROM, normal, normal capillary refill, no cyanosis or edema Neuro: Alert and oriented x4, no focal motor deficits Psych: Affect normal, mental status grossly normal Skin: No rashes or lesions noted, no wounds Urinary Catheter Management: [place]: Cath Placed During This Visit: yes Reason for Continuing Indwelling Catheter: Accurate Measurement of Urinary Output in Critically Ill Patients Urinary Catheter Date of Insertion: 03/29/25 Urinary Catheter Time of Insertion: 14:36 Data 04/02/25 05:32 04/02/25 05:32 Micro: Microbiology 03/29/25 07:25 Urine Culture - Final Urine,Clean Catch Escherichia coli A&P Assessment and plan (1) NSTEMI (non-ST elevated myocardial infarction): (2) PAD (peripheral artery disease): (3) Moderate aortic stenosis: Plan Patietn had elevated troponins without chest pain and normal EF which may be due to type II IA from infection and demand ischemia, but given patient's history and the fact that she is a poor historian, it is recommended to proceed with a stress test to further rule out any ischemia caused by progressing CAD. Thank you, Dr. Rodney, for allowing us to care for this very pleasant 59 year old female. PDMP PDMP Reviewed: Not Reviewed Consult Attestations Medical Necessity Statement: Deferred to primary. Coding Level of Care Code Acute Code for [facility] Fwd Diagnoses NSTEMI (non-ST elevated myocardial infarction) I21.4 PAD (peripheral artery disease) I73.9 Moderate aortic stenosis I35.0 Documented by User: Brad Lyles M.D 04/02/25 09:53 Medications/Allergies Home Medications ?Medication ?Instructions ?Recorded ?Confirmed ?Last Taken ?Type blood sugar diagnostic (Blood #50 ea 08/10/23 03/29/25 Unknown Rx Glucose Test strips) lancets #100 ea 11/28/23 03/29/25 Unknown Rx albuterol sulfate 90 mcg/actuation 2 puff inhalation Q6H PRN 01/10/24 03/29/25 11/14/24 18:00 Rx aerosol inhaler shortness of breath or wheezing #8.5 grams blood sugar diagnostic (Blood #100 ea 01/10/24 03/29/25 Unknown Rx Glucose Test strips) blood-glucose meter #1 ea 01/10/24 03/29/25 Unknown Rx aspirin 81 mg tablet,delayed 81 mg PO QAM #30 tabs 03/20/24 03/29/25 03/28/25 Rx release cyclobenzaprine 10 mg tablet 10 mg PO TID PRN Muscle Spasm #90 04/16/24 03/29/25 11/14/24 18:00 Rx tabs duloxetine 60 mg capsule,delayed 60 mg PO DAILY #30 caps 04/16/24 03/29/25 03/28/25 Rx release epinephrine 0.3 mg/0.3 mL 0.3 mg (0.3 mL) IM Q4H PRN 04/16/24 03/29/25 07/23/24 Rx injection, auto-injector (EpiPen anaphylaxis #2 ea 2-Pankaj) nitroglycerin 0.4 mg sublingual 0.4 mg sublingual Q5M PRN Chest 04/16/24 03/29/25 10/26/24 Rx tablet (Nitrostat) Pain #30 tabs pen needle, diabetic 31 gauge x #100 ea 04/16/24 03/29/25 Unknown Rx 5/16 (Comfort EZ Pen [place]) pen needle, diabetic 32 gauge x #100 ea 04/16/24 03/29/25 Unknown Rx 5/32 (Comfort EZ Pen [place]) quetiapine 200 mg tablet 200 mg PO BEDTIME #30 tabs 04/16/24 03/29/25 03/28/25 Rx Wheel chair #1 ea 07/19/24 03/29/25 Unknown Rx metformin 500 mg tablet 500 mg PO BID 07/24/24 03/29/25 03/28/25 History Diabetic shoes with 3 sets of #1 ea 08/09/24 03/29/25 Unknown Rx insoles and toe filler to right furosemide 40 mg tablet 40 mg PO DAILY PRN Edema 10/25/24 03/29/25 10/26/24 History gabapentin 300 mg capsule 300 mg PO TID 10/25/24 03/29/25 03/28/25 History insulin glargine 100 unit/mL (3 50 unit SUBCUT BID 10/25/24 03/29/25 03/28/25 History mL) subcutaneous pen (Lantus Solostar U-100 Insulin) oxybutynin chloride 10 mg 20 mg PO DAILY 10/25/24 03/29/25 03/28/25 History tablet,extended release 24 hr varenicline tartrate 1 mg tablet 1 mg PO BID 10/25/24 03/29/25 03/28/25 History dulaglutide 1.5 mg/0.5 mL 1.5 mg SUBCUT Q7D 10/27/24 03/29/25 03/27/25 History subcutaneous pen injector (Trulicity) ezetimibe 10 mg tablet 10 mg PO DAILY #30 tabs 02/04/25 03/29/25 03/28/25 Rx losartan 50 mg tablet 50 mg PO DAILY@0800 #30 tabs 03/06/25 03/29/25 03/28/25 Rx ticagrelor 90 mg tablet (Brilinta) 90 mg PO BID #180 tabs 03/06/25 03/29/25 03/28/25 Rx buprenorphine 2 mg-naloxone 0.5 mg See Rx Instructions .Route .COMPLEX 03/29/25 03/29/25 Unknown History sublingual tablet cilostazol 100 mg tablet 100 mg PO BID 03/29/25 03/29/25 03/28/25 History dorzolamide 22.3 mg-timolol 6.8 1 drp ophthalmic (eye) BID 03/29/25 03/29/25 03/28/25 History mg/mL eye drops empagliflozin 25 mg tablet 25 mg PO DAILY 03/29/25 03/29/25 03/28/25 History (Jardiance) neomycin 3.5 mg/g-polymyxin B See Rx Instructions .Route .COMPLEX 03/29/25 03/29/25 03/28/25 History 10,000 unit/g-dexameth 0.1 % eye oint pantoprazole 40 mg tablet,delayed 40 mg PO QAM PRN Acid Reflux 03/29/25 03/29/25 Unknown History release pregabalin 300 mg capsule 300 mg PO BID 03/29/25 03/29/25 03/28/25 History sulfamethoxazole 800 1 tab PO BID 03/29/25 03/29/25 03/28/25 History mg-trimethoprim 160 mg tablet tramadol 50 mg tablet 50 - 100 mg PO Q6H PRN Pain 03/29/25 03/29/25 Unknown History Allergies Allergy/AdvReac Type Severity Reaction Status Date / Time doxycycline Allergy Mild ADR-Photose Verified 03/06/25 08:44 nsitivity fentanyl Allergy Unknown ALGY-Difficulty Verified 03/06/25 08:44 Breathing adhesive Allergy Unknown Verified 03/06/25 08:44 codeine Allergy Unknown Verified 03/06/25 08:44 hydrocodone Allergy ADR-Itching Verified 03/06/25 08:44 latex Allergy ALGY-Swell Verified 03/06/25 08:44 Lip/Tongue/Throat naproxen (From Naprosyn) Allergy Unknown Verified 03/06/25 08:44 nut - unspecified Allergy ALGY-Anaphy Verified 03/06/25 08:44 laxis Penicillins Allergy Unknown Verified 03/06/25 08:44 tramadol Allergy ADR-Itching Verified 03/06/25 08:44 PFSH Acute PFSH: Medical History (Updated 03/30/25 @ 14:47 by Cornelius Joyce MD) Moderate aortic stenosis NSTEMI (non-ST elevated myocardial infarction) Thought to be secondary to plaque rupture. Angiogram July 04 no flow-limiting lesions, or restenosis of previous stent from April 2020 Chronic migraine without aura, intractable, with status migrainosus Hemiparesis affecting right side as late effect of cerebrovascular accident Generalized epilepsy Equinus contracture of left ankle Amputated toe of left foot Amputated toe of right foot Septic arthritis suspected Osteomyelitis of ankle or foot, right, acute Acute osteomyelitis of right foot Acute respiratory failure with hypoxia PAD (peripheral artery disease) Hammertoe of left foot Thrombocytosis, unspecified Diabetes Cellulitis Essential hypertension Depression Anemia 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 COPD (chronic obstructive pulmonary disease) Hypersensitivity pneumonitis Rheumatoid arthritis Infection of total left knee replacement Right wrist deformity History of stroke Acute exacerbation of chronic obstructive pulmonary disease (COPD) Acute encephalopathy Acute alteration in mental status Sepsis Sacral pressure ulcer Cellulitis of gluteal region Seizure disorder Hypoxemia Seizure UTI (urinary tract infection) Chronic, continuous use of opioids Seizures Acute and chronic respiratory failure with hypoxia Pneumonia Pneumonia Acute hypoxemic respiratory failure Stenosis of left internal carotid artery with cerebral infarction Diabetic foot ulcer Right arm weakness Hoarseness of voice Sepsis Numbness and tingling in both hands Urinary tract infection Chest pain Syncope Needs flu shot Carpal tunnel syndrome, right Urinary incontinence Chronic knee pain Abnormal stress test CAD (coronary artery disease) Acute exacerbation of CHF (congestive heart failure) Unstable angina COPD exacerbation Exposure to COVID-19 virus Compression fracture of L2 lumbar vertebra Right hip pain Dyspnea (HFpEF) heart failure with preserved ejection fraction Candidiasis of vagina History of CVA (cerebrovascular accident) Elevated troponin Pericardial effusion Pressure ulcer Prosthetic joint infection Septic arthritis of knee, left Osteoarthritis of left knee History of hypoglycemic coma Obesity (BMI 35.0-39.9 without comorbidity) Peripheral sensory neuropathy due to type 2 diabetes mellitus Coronary artery disease due to type 2 diabetes mellitus Diabetes type 2, uncontrolled Neuropathy Insomnia Fibromyalgia, primary Hyperlipidemia, mixed CVA (cerebral vascular accident) Dyslipidemia Leukocytosis Chronic obstructive pulmonary disease, unspecified Vitamin D deficiency Type 2 diabetes mellitus with diabetic autonomic (poly)neuropathy Essential hypertension Encounter for long-term opiate analgesic use Opioid contract exists Current every day smoker Chronic pain of left knee Low back pain radiating to both legs Intervertebral disc disorder of lumbar region with myelopathy Lumbosacral spondylosis without myelopathy Osteoarthritis of spine at multiple levels Chronic left-sided low back pain Surgical History (Updated 03/30/25 @ 14:41 by Cornelius Joyce MD) History of amputation of great toe of both feet Status post left knee replacement History of coronary angiogram Angiogram April 2020 with 90% circumflex lesion, drug-eluting stent placed by Dr. Jerome Status post lumbar laminectomy S/P lumbar fusion DR. Shreya ZAYAS IN [place], [place] L4-L5, L5-S1 S/p bilateral carpal tunnel release History of arthroscopic surgery of elbow BILATERAL S/P hysterectomy S/P knee surgery RIGHT Family History Other CAD (coronary artery disease) Cancer Diabetes Social History Smoking and tobacco/nicotine status: current every day tobacco/nicotine user (vaping) cigarettes Packs smoked per day: 0.5 Years cigarettes smoked: 10 [ Other cigarette details: PER PATIENT REPORT] Alcohol intake: former Substance/Drug Use: never Caregiver/support person: Yes Lives independently: No Housing: Skilled Nursing Marital status: Unknown Marital status details: She and son state she is not service: No Current occupational status: unemployed Pets and animals: Yes Do you think of yourself as: Straight/Heterosexual Current gender identity: Female Physical Exam Urinary Catheter Management: [place]: Cath Placed During This Visit: yes Data 04/02/25 05:32 04/02/25 05:32 A&P Assessment and plan (1) NSTEMI (non-ST elevated myocardial infarction): (2) PAD (peripheral artery disease): (3) Moderate aortic stenosis: PDMP PDMP Reviewed: Not Reviewed Coding Level of Care Code Acute Code for [facility] Diagnoses NSTEMI (non-ST elevated myocardial infarction) I21.4 PAD (peripheral artery disease) I73.9 Moderate aortic stenosis I35.0
[2025-04-01] MEDS: piperacillin-tazobactam 3.375 GM in sodium chloride 0.9% (plus) 50 ML IV ×2 (15:31→22:56)
[2025-04-01] MEDS: gabapentin 300 mg Capsule 600 MG PO (20:32)
[2025-04-01] MEDS: CELEcoxib 200 mg Capsule PO (20:32)
[2025-04-01] MEDS: quetiapine 100 mg Tablet 200 MG PO (20:32)
[2025-04-01 20:52] LABS: Vancomycin Trough 12.8 ug/mL (10-15)
[2025-04-01] MEDS: vancomycin 1,250 MG/250 ML PIGGYBACK 166.67 MG IV (21:37)
[2025-04-01 22:41] LABS: Glucose Point of Care 129 mg/dL (70-110)
[2025-04-01 22:41] LABS: Glucose Point of Care 172 mg/dL (70-110)
[2025-04-02] VITALS (17 sets, daily range): BP systolic 105–156; BP diastolic 60–88; PULSE 78–93; RESP 16–20; TEMP 36.3–37.1; O2SAT 91–97
[2025-04-02] MEDS: levalbuterol 0.63 mg/3 mL Neb INHALATION ×4 (02:42→19:34)
[2025-04-02] MEDS: ipratropium 0.5 mg/2.5 mL Neb INHALATION ×4 (02:42→19:34)
[2025-04-02 05:40] LABS: Hematocrit 32.1 % (36-47); Mean Corpuscular HGB Conc 29.6 g/dL (30-55); Mean Corpuscular Volume 74.3 fl (85-98); Mean Platelet Volume 8.7 fL (7.4-10.4); Platelet Count 511 10^3/cmm (157-399); Red Blood Count 4.32 10^6/uL (3.85-5.65); Red Cell Distribution Width 19.7 % (12.1-15.1); White Blood Count 14.07 10^3/uL (3.29-11.43)
[2025-04-02] MEDS: aspirin 81 mg EC Tablet PO (05:51)
[2025-04-02] MEDS: HYDROmorphone tab 2 MG TABLET PO ×3 (05:51→17:44)
[2025-04-02] MEDS: piperacillin-tazobactam 3.375 GM in sodium chloride 0.9% (plus) 50 ML IV (05:52)
[2025-04-02 06:02] LABS: Anion Gap 14.9 (5-19); Blood Urea Nitrogen 36 mg/dL (6-20); Calcium 9.3 mg/dL (8.5-10.5); Carbon Dioxide 25 mmol/L (22-29); Chloride 103 mmol/L (98-107); Creatinine Clr Calc Pharmacy 91.8904; Glomerular Filtration Rate 73.9 mL/min (90-130); Glucose 87 mg/dL (65-115); Osmolality Calculated 294 mOsm/kg (285-295); Potassium 4.9 mmol/L (3.5-5.1); Sodium 138 mmol/L (136-145)
[2025-04-02 06:24] LABS: Glucose Point of Care 95 mg/dL (70-110)
[2025-04-02] MEDS: regadenoson 0.4 Mg/5 ml Syringe IVP (07:13)
[2025-04-02 07:15] LABS: Slide Review Slide Review Perform
[2025-04-02 07:16] LABS: Absolute Eosinophils 1.7 10^3/cmm (0.0-0.7); Absolute Segmented Neutrophil 5.9 10/cmm (1.6-7.1); Band Neutrophils Absolute 0.6 10^3/cmm (0.0-1.2); Eosinophils 12 %; Lymphocytes 35 %; Lymphocytes Absolute 4.9 10^3/cmm (1.2-3.4); Monocytes Absolute 0.3 10^3/cmm (0.1-0.6); Segmented Neutrophils 42 %; Total Cells Counted 100 (0-100)
[2025-04-02 07:17] LABS: Absolute Neutrophil 6.5 10^3/cmm (1.4-6.5); Platelet Estimate Increased (Normal)
[2025-04-02] MEDS: budesonide 0.5 mg/2 mL Neb INHALATION ×2 (08:21→19:34)
[2025-04-02] MEDS: vancomycin 1,250 MG/250 ML PIGGYBACK 167 MG IV (08:26)
[2025-04-02] MEDS: polyethylene glycol 3350 Pkt 17 gm PO ×2 (08:28→17:44)
[2025-04-02] MEDS: insulin glargine 100 units/1 mL 50 UNIT SUBCUT ×2 (08:28→17:43)
[2025-04-02] MEDS: metoprolol tartrate 25 mg Tablet PO ×2 (08:28→21:20)
[2025-04-02] MEDS: CELEcoxib 200 mg Capsule PO ×2 (08:31→21:20)
[2025-04-02] MEDS: gabapentin 300 mg Capsule PO ×2 (08:31→17:44)
[2025-04-02] MEDS: pantoprazole DR 40 mg Tablet PO (08:31)
[2025-04-02] MEDS: ticagrelor 90 mg Tablet PO ×2 (08:31→17:44)
[2025-04-02] MEDS: duloxetine 60 mg Capsule PO (08:32)
[2025-04-02] MEDS: oxybutynin chloride XL 5 MG TABLET 20 MG PO (08:32)
[2025-04-02] MEDS: morphine 4 mg/mL SDV 1 mL 2 MG IVP ×2 (08:51→21:30)
--- NOTE | 2025-04-02 10:22 | P.PN_ITS ---
Subjective 2 Subjective: Patient mentions about on and off chest discomfort and shortness of breath. Stress test is abnormal. Vitals/I&O/Wt Last Vital Signs Temp 98.5 F 04/02/25 08:25 Pulse 80 04/02/25 08:37 Resp 18 04/02/25 08:51 BP 137/88 04/02/25 08:25 Pulse Ox 97 04/02/25 08:25 O2 Del Method Nasal Cannula 04/02/25 08:25 O2 Flow Rate 3 04/02/25 08:23 04/01/25 04/02/25 04/02/25 22:59 06:59 14:59 Intake Total 783.514 / 1263.514 791.667 / 2055.181 250 / 250 Output Total 3500 / 5100 Balance 783.514 / -336.486 -2708.333 / -3044.819 250 / 250 Weight last 48 hrs Weight 225 lb Weight 225 lb Physical Exam 2 Narrative: GENERAL: Patient is alert, awake and oriented x3. [] NECK: No jugular vein distension. [] HEENT: No cyanosis. No icterus. No pallor. [] HEART: Regular S1 and S2. No murmur, rub or gallop. [] LUNGS: Clear to auscultate bilaterally. [] CENTRAL NERVOUS SYSTEM: Grossly nonfocal. [] EXTREMITIES: Lower extremities with 1+ edema bilaterally. Urinary Catheter Management: [place]: Cath Placed During This Visit: yes Reason for Continuing Indwelling Catheter: Other Urinary Catheter Date of Insertion: 03/29/25 Urinary Catheter Time of Insertion: 14:36 Data 04/02/25 05:32 04/02/25 05:32 A&P Assessment and plan (1) NSTEMI (non-ST elevated myocardial infarction): (2) PAD (peripheral artery disease): (3) Moderate aortic stenosis: Plan Patient has on and off chest pain episodes and dyspnea exertion. Stress test showing significant ischemia. Had a troponin elevation. We will proceed with coronary angiogram with possible PCI. Risks and benefits of the procedure discussed. NPO past midnight Thank you for involving us with care of this patient. We will continue to follow. Please call with questions. PDMP PDMP Reviewed: Not Reviewed Attestations 2 Medical Necessity Statement*: Care expected to cross 2 midnights. Coding Level of Care Code Acute Code for Chg Fwd Diagnoses NSTEMI (non-ST elevated myocardial infarction) I21.4 PAD (peripheral artery disease) I73.9 Moderate aortic stenosis I35.0
[2025-04-02 10:42] LABS: Glucose Point of Care 151 mg/dL (70-110)
[2025-04-02 11:25] LABS: Glucose Point of Care 160 mg/dL (70-110)
[2025-04-02] MEDS: insulin lispro 100 unit/1 mL SUBCUT ×3 (11:44→21:20)
--- NOTE | 2025-04-02 12:36 | P.PN_ITS ---
Subjective 2 Subjective: Patient's breathing is much improved. No complaints of pain today Noted abnormal stress test and plans for cath tomorrow Vitals/I&O/Wt Last Vital Signs Temp 97.5 F L 04/02/25 11:44 Pulse 80 04/02/25 11:44 Resp 16 04/02/25 11:44 BP 131/77 04/02/25 11:44 Pulse Ox 94 04/02/25 11:44 O2 Del Method Nasal Cannula 04/02/25 11:44 O2 Flow Rate 3 04/02/25 08:23 04/01/25 04/02/25 04/02/25 22:59 06:59 14:59 Intake Total 783.514 / 1263.514 791.667 / 2055.181 968.333 / 968.333 Output Total 3500 / 5100 1500 / 1500 Balance 783.514 / -336.486 -2708.333 / -3044.819 -531.667 / -531.667 Weight last 48 hrs Weight 102.058 kg Weight 102.058 kg Physical Exam 2 Narrative: Alert and oriented nonfocal no acute distress, overweight Heart regular normal S1-S2 without murmurs clicks gallops or rubs Lungs improved aeration no wheezes or rhonchi today markedly improved Abdomen obese soft nontender nondistended positive bowel sounds no hepatosplenomegaly Extremities no clubbing cyanosis or edema. 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 SIRS: Tachycardic, Febrile, Leukocytosis Source: Multifocal pneumonia End organ damage: Non-ST elevation OR, respiratory failure Lactic acid elevated on admission Patient did not receive full 30 mL/kg BW given concerns for heart failure. 03/29 blood cultures negative Urine culture positive for E. coli Legionella antigen presumptive negative negative bacterial antigens x 5 (2) Acute respiratory failure with hypoxia: Baseline on 2 L of oxygen, on admission 10 L high flow. Most likely in setting of mild CHF, COPD exacerbation in setting of multifocal bilateral pneumonia with concerns for aspiration. Aggressive pulmonary toilet with I-S. Out of bed to chair. (3) Diastolic heart failure: Echocardiogram done shows an EF of 60%, mild to moderate LVH, grade 1 diastolic dysfunction, moderate aortic stenosis, increased LA size, moderate MR. Consider Lasix dosing as she takes as needed at home Strict input output charting, daily weights. (4) Multifocal pneumonia: Due to lethargy there was concern for aspiration pneumonia. She was apparently unintentionally overdosed on Suboxone. Barium swallow shows no overt aspiration but mild laryngeal penetration with some liquids WBC count increasing change meropenem to Zosyn and vancomycin Aggressive pulmonary toilet with I-S and Acapella. Advance diet as per speech evaluation. (5) NSTEMI (non-ST elevated myocardial infarction): Stress test positive today For heart cath tomorrow Continue with aspirin, ezetimibe, metoprolol 25 mg twice daily. (6) Pleuritic chest pain: Resolved (7) Constipation: Patient reports hard stools and difficulty with bowel movements. No diarrhea, vomiting, melena, or hematochezia. on bowel regimen. (8) Moderate aortic stenosis: Plan Type 2 diabetes mellitus: A1c 8.8. Continue with Lantus 50 units twice daily. Insulin sliding scale moderate dose protocol. Full code Advance diet as per speech evaluation Heparin drip will be sufficient for DVT prophylaxis Protonix for PUD prophylaxis chronic pain from RA? and fibromyalagia. has been on chronic opioids. She is requesting increase. Will not increase dose of opioids will add nonopioid therapy. She is already on Cymbalta. That helps with chronic pain. Added Celebrex at high dose. No complaints of pain today PDMP PDMP Reviewed: Not Reviewed Attestations 2 Medical Necessity Statement*: Patient continues hospitalization for markedly abnormal stress test and need for angiogram and likely PCI. Coding Level of Care Code Acute Code for Chg Fwd Diagnoses Sepsis A41.9 Acute respiratory failure with hypoxia J96.01 Acute diastolic heart failure I50.31 Heart failure chronicity: acute Multifocal pneumonia J18.9 NSTEMI (non-ST elevated myocardial infarction) I21.4 Pleuritic chest pain R07.81 Constipation K59.00 Moderate aortic stenosis I35.0
[2025-04-02] MEDS: nitrofurantoin SR (BID) 100 mg Capsule PO ×2 (13:41→17:44)
--- NOTE | 2025-04-02 15:12 | NMCV_ITS ---
NM jb perf SPECT r/s* [id number] Mayra Ascencio Age: 59 Gender: F : 1965 Exam Date: 04/02/2025 06:37 Ordering Phys: Yessenia Gibson NP Technologist: SUMA Novak Exam Location: [facility] Indications: CP STRESS TEST [facility] IMAGE PROTOCOL Rest/Stress 1 Lexiscan Day Radiopharmaceutical Dose (mCi) Administration Site Administered by Rest: Tc-99m 10.8 IV Tiny Moon, [employer] Sestamibi Stress:Tc-99m 32.5 IV Tiny Jolleygle, [employer] Sestamibi Rest: 02-Apr-2025 60 Discovery 630 Stress: 02-Apr-2025 30 Discovery 630 0.4mg Lexiscan. Images obtained in supine and prone position. SPECT RESULTS Technical Quality: Good Raw Data Analysis: Normal Image Corrections: No attenuation or motion correction applied Summed Stress Score: 11 Summed Rest Score: 4 Summed Difference Score: 8 PERFUSION FINDINGS Moderate to large area of minimal to moderately decreased tracer uptake was noted in the basal and mid inferolateral, basal and mid anterolateral, mid inferior, apical inferior and apical lateral segments. Significant reversibility was noted in these areas advised. FUNCTIONAL RESULTS (calculated via Gated SPECT) Stress Image LV EF (%): 54 Stress EDV (mL):120 TID: 1.2 Stress ESV (mL):55 FUNCTIONAL FINDINGS: Segmental wall motion analysis revealing no gross wall motion abnormalities. IMPRESSIONS 1. Myocardial perfusion imaging revealing moderately large area of minimal to moderately decreased tracer uptake involving the inferior, inferolateral and anterolateral segments with significant reversibility suggesting ischemia in the distribution of the right coronary artery/circumflex artery. 2. Normal LV ejection fraction of 54% with 3. LV wall motion analysis revealing no gross wall motion abnormalities. 4. Mildly dilated LV cavity with an end-systolic volume of 55 mL. 5. Elevated transient ischemic dilatation ratio 1.2 also is consistent with ischemia. Compared to the study from 06/12/2021, the LV dilatation appears to be new Dr Troy Joyce MD [facility] (Electronically Signed) Final Date: 02 April 2025 09:17 S
[2025-04-02 18:25] LABS: Glucose Point of Care 173 mg/dL (70-110)
[2025-04-02 20:41] LABS: Glucose Point of Care 181 mg/dL (70-110)
[2025-04-02] MEDS: gabapentin 300 mg Capsule 600 MG PO (21:20)
[2025-04-02] MEDS: quetiapine 100 mg Tablet 200 MG PO (21:20)
[2025-04-03] VITALS (14 sets, daily range): BP systolic 124–149; BP diastolic 56–77; PULSE 85–91; RESP 16–24; TEMP 36.4–37.1; O2SAT 88–96
[2025-04-03] MEDS: ipratropium 0.5 mg/2.5 mL Neb INHALATION ×3 (01:39→20:04)
[2025-04-03] MEDS: levalbuterol 0.63 mg/3 mL Neb INHALATION ×3 (01:39→20:04)
[2025-04-03] MEDS: aspirin 81 mg EC Tablet PO (05:12)
[2025-04-03] MEDS: morphine 4 mg/mL SDV 1 mL 2 MG IVP ×2 (06:10→15:00)
[2025-04-03 06:20] LABS: Glucose Point of Care 129 mg/dL (70-110)
[2025-04-03 07:04] LABS: Basophils # 0.1 10^3/uL (0.0-0.1); Basophils % 0.5 %; Eosinophils % 13.5 %; Hematocrit 33.2 % (36-47); Lymphocytes # 2.2 10^3/uL (0.8-4.8); Mean Corpuscular HGB Conc 29.5 g/dL (30-55); Mean Corpuscular Hemoglobin 21.8 pg (27-33); Mean Corpuscular Volume 73.9 fl (85-98); Mean Platelet Volume 8.9 fL (7.4-10.4); Monocytes # 1.3 10^3/uL (0.2-0.9); Monocytes % 8.7 %; Neutrophils # 8.28 10^3/uL (1.8-7.7); Neutrophils % 56.6 %; Nucleated Red Blood Cells % 0.3 %; Platelet Count 550 10^3/cmm (157-399); Red Blood Count 4.49 10^6/uL (3.85-5.65); Red Cell Distribution Width 19.8 % (12.1-15.1); White Blood Count 14.64 10^3/uL (3.29-11.43)
[2025-04-03] MEDS: oxybutynin chloride XL 5 MG TABLET 20 MG PO (07:22)
[2025-04-03] MEDS: sodium chloride 0.9% 1,000 ML 50 ML IV (07:22)
[2025-04-03] MEDS: diphenhydrAMINE 50 mg Capsule PO (07:22)
[2025-04-03] MEDS: nitrofurantoin SR (BID) 100 mg Capsule PO ×2 (07:22→18:49)
[2025-04-03 07:23] LABS: Anion Gap 17.9 (5-19); Blood Urea Nitrogen 31 mg/dL (6-20); Calcium 9.4 mg/dL (8.5-10.5); Carbon Dioxide 25 mmol/L (22-29); Chloride 103 mmol/L (98-107); Creatinine Clr Calc Pharmacy 105.0176; Glomerular Filtration Rate 86.2 mL/min (90-130); Glucose 124 mg/dL (65-115); Osmolality Calculated 300 mOsm/kg (285-295); Potassium 4.9 mmol/L (3.5-5.1); Sodium 141 mmol/L (136-145)
[2025-04-03] MEDS: CELEcoxib 200 mg Capsule PO ×2 (07:23→21:46)
[2025-04-03] MEDS: metoprolol tartrate 25 mg Tablet PO ×2 (07:23→21:46)
[2025-04-03] MEDS: duloxetine 60 mg Capsule PO (07:23)
[2025-04-03] MEDS: ticagrelor 90 mg Tablet PO ×2 (07:23→18:49)
[2025-04-03] MEDS: pantoprazole DR 40 mg Tablet PO (07:23)
[2025-04-03] MEDS: gabapentin 300 mg Capsule PO ×2 (07:23→18:49)
[2025-04-03 07:47] LABS: Slide Review Slide Review Perform
[2025-04-03] MEDS: budesonide 0.5 mg/2 mL Neb INHALATION ×2 (07:49→20:04)
--- NOTE | 2025-04-03 08:38 | W.PM.OPSUD ---
Surgery/Procedure H&P Update DATE OF PROCEDURE: April 03, 2025 DATE H&P PERFORMED: 04/03/25 H&P UPDATE INFORMATION: I have reviewed H&P completed within last 30 days, I have examined patient prior to procedure and No changes to prior documentation PREOP DIAGNOSIS: Chest pain/ dyspnea on exertion/ abnormal stress test PRIMARY INDICATION FOR PROCEDURE: Chest pain/ dyspnea on exertion/ abnormal stress test PLANNED PROCEDURE: Operation Date: 04/03/25 08:30 Proposed Procedures p Cardiac Catheterization(Left) - Brad Lyles M.D Possible percutaneous coronary intervention PATIENT REASSESSED PRIOR TO SEDATION, WITH NO CHANGE NOTED: Yes PHYSICAL EXAM: alert, oriented x 3, clear to auscultation bilaterally and regular rate & rhythm AIRWAY EVAL/ANESTHESIA PLAN: normal airway, ASA III, Local Anesthesia, Risks, benefits & alternatives of sedation and/or procedure discussed and Patient agrees to continue as planned ADDITIONAL INFORMATION: Moderate sedation
--- NOTE | 2025-04-03 09:14 | P.PCN_ITS ---
Procedure Note: Date of procedure: 04/03/25 Pre-procedure diagnosis: Chest pain/ dyspnea on exertion/ abnormal stress test Post-procedure diagnosis: other (Critical in-stent restenosis of proximal to mid RCA stent. Status post successful revascularization with balloon angioplasty) Procedure: Left main, LAD and left circumflex arteries are patent. RCA has prior stent from proximal to mid vessel. Has severe ISR. Status post successful revascularization with balloon angioplasty Dual antiplatelet therapy with aspirin and brilinta for 1 year Estimated blood loss (mL): 10 Complications: None Condition: stable Disposition: floor Coding Level of Care Code Acute Code for [facility] Ottoniel
--- NOTE | 2025-04-03 09:40 | PC.NURSE ---
Received pt from quality assurance qa lab technician around 0940 am Pt is sleepy post sedation. Right groin 6 fr sheath intact and attached to pressure bag.no hematoma,bleeding or swelling.pedal pulses are palpable on righ leg. Bed alarm reset and call light provided.
--- NOTE | 2025-04-03 09:59 | PC.SOCIAL ---
IMM Update pg 2 of IMM Updated and reviewed w/ patient. Copy provided and copy dated, initialed and placed in chart.
[2025-04-03 11:19] LABS: Glucose Point of Care 96 mg/dL (70-110)
[2025-04-03 11:55] LABS: Partial Thromboplastin Time 155.3 SECONDS (23.9-36.7)
--- NOTE | 2025-04-03 12:10 | P.PN_ITS ---
Subjective 2 Subjective: She had cardiac cath today. RCA had prior stents with severe ISR. Successful revascularization with balloon angioplasty. Vitals/I&O/Wt Last Vital Signs Temp 97.8 F 04/03/25 11:20 Pulse 86 04/03/25 11:20 Resp 18 04/03/25 11:20 BP 139/61 04/03/25 11:20 Pulse Ox 91 04/03/25 11:20 O2 Del Method Nasal Cannula 04/03/25 11:20 O2 Flow Rate 1.5 04/03/25 07:50 04/02/25 04/03/25 04/03/25 22:59 06:59 14:59 Intake Total 240 / 2188.333 Output Total 4600 / 7000 900 / 900 Balance -4360 / -4811.667 -900 / -900 Weight last 48 hrs Weight 102.058 kg Weight 102.058 kg Physical Exam 2 Const: COMMON NORMALS: no acute distress, patient oriented x3 and healthy appearing GENERAL APPEARANCE: cooperative HENMT: COMMON NORMALS: normocephalic, atraumatic and hearing grossly normal bilaterally HEAD & SCALP: normocephalic and atraumatic Eye: COMMON NORMALS: Equal, round and reactive pupils present and EOMs intact bilaterally PUPIL: Yes Equal, round and reactive pupils present Neck/C-Spine: COMMON NORMALS: supple and no JVD Lymph: LYMPHATIC: no lymphadenopathy noted Chest: COMMONS NORMALS: normal inspection of the chest Resp: COMMON NORMALS: normal respiratory effort and clear to auscultation bilaterally AUSCULTATION: clear to auscultation bilaterally Cardio: COMMON NORMALS: no JVD, regular rate, regular rhythm and No murmurs present (Cardio) RATE: regular rate RHYTHM: regular rhythm GI: COMMON NORMALS: Normal to inspection, nondistended, normoactive bowel sounds present : COMMON NORMALS: Yes no CVA tenderness BLADDER/KIDNEY EXAM: Yes no CVA tenderness Back/Pelvis: COMMON NORMALS: no CVA tenderness Extremity: COMMON NORMALS: normal to inspection Neuro: COMMON NORMALS: patient oriented x3 and moves all extremities S PEECH: speech normal Psych: COMMON NORMALS: mental status grossly normal JUDGEMENT: Good judgement present (Psych) Skin: COMMON NORMALS: no rashes or lesions noted GENERAL SKIN EXAM: no rashes or lesions noted Urinary Catheter Management: [place]: Cath Placed During This Visit: yes Urethral Indwelling: Yes Reason for Continuing Indwelling Catheter: Required Immobilization for Trauma or Surgery or Anesthesia Urinary Catheter Date of Insertion: 03/29/25 Urinary Catheter Time of Insertion: 14:36 Data 04/03/25 06:15 04/03/25 06:15 Micro: Microbiology 03/29/25 07:12 Blood Culture - Final Blood NO GROWTH AFTER 5 DAYS 03/29/25 07:12 Blood Culture - Final Blood NO GROWTH AFTER 5 DAYS A&P Assessment and plan (1) NSTEMI (non-ST elevated myocardial infarction): Patient has CAD ? Prior stent to proximal to mid RCA with severe ISR ? Status post successful revascularization with balloon angioplasty (2) Sepsis: Present on admission. SIRS: Tachycardic, Febrile, Leukocytosis Source: Multifocal pneumonia and UTI End organ damage: Non-ST elevation [place], respiratory failure Lactic acid elevated on admission Patient did not receive full 30 mL/kg BW given concerns for heart failure. 03/29 blood cultures negative Urine culture positive for E. coli Legionella antigen presumptive negative negative bacterial antigens x 5 (3) Acute respiratory failure with hypoxia: Baseline on 2 L of oxygen, on admission 10 L high flow. Most likely in setting of mild CHF, COPD exacerbation in setting of multifocal bilateral pneumonia with concerns for aspiration. Aggressive pulmonary toilet with I-S. Out of bed to chair. (4) Diastolic heart failure: Echocardiogram done shows an EF of 60%, mild to moderate LVH, grade 1 diastolic dysfunction, moderate aortic stenosis, increased LA size, moderate MR. Consider Lasix dosing as she takes as needed at home Strict input output charting, daily weights. (5) Multifocal pneumonia: Due to lethargy there was concern for aspiration pneumonia. She was apparently unintentionally overdosed on Suboxone. Barium swallow shows no overt aspiration but mild laryngeal penetration with some liquids WBC count increasing change meropenem to Zosyn and vancomycin Aggressive pulmonary toilet with I-S and Acapella. Advance diet as per speech evaluation. (6) Pleuritic chest pain: Resolved (7) Constipation: Patient reports hard stools and difficulty with bowel movements. No diarrhea, vomiting, melena, or hematochezia. on bowel regimen. (8) Moderate aortic stenosis: Mean gradient 16.1 mmHg, MICHAEL 1.2 cm? Plan Status post cardiac cath with balloon angioplasty of RCA today ? Continue telemetry monitoring ? Continue aspirin and ticagrelor Type 2 diabetes mellitus: A1c 8.8. Continue with Lantus 50 units twice daily. Insulin sliding scale moderate dose protocol. Full code Carbohydrate consistent diet Lovenox for DVT prophylaxis Protonix for PUD prophylaxis chronic pain from RA? and fibromyalagia. has been on chronic opioids. She is requesting increase. Will not increase dose of opioids will add nonopioid therapy. She is already on Cymbalta. That helps with chronic pain. Added Celebrex at high dose. No complaints of pain today PDMP PDMP Reviewed: Not Reviewed Attestations 2 Medical Necessity Statement*: Patient requires continued hospitalization today for telemetry monitoring. Status post balloon angioplasty of RCA today. Dissipate discharge home tomorrow. Time Spent in Patient Care: 50 minutes Coding Level of Care Code 46919 Diagnoses NSTEMI (non-ST elevated myocardial infarction) I21.4 Sepsis A41.9 Acute respiratory failure with hypoxia J96.01 Acute diastolic heart failure I50.31 Heart failure chronicity: acute Multifocal pneumonia J18.9 Pleuritic chest pain R07.81 Constipation K59.00 Moderate aortic stenosis I35.0
--- NOTE | 2025-04-03 13:59 | PC.NURSE ---
pt refused to use bedpan and is not cooperative to keep her leg still. pt has been talking to family on the phone. Re-educated pt to keep her right leg still and prevent bending and getting out of bed. bed alarm activated.
[2025-04-03 14:09] LABS: Partial Thromboplastin Time 31.2 SECONDS (23.9-36.7)
[2025-04-03 17:01] LABS: Glucose Point of Care 131 mg/dL (70-110)
[2025-04-03] MEDS: insulin glargine 100 units/1 mL 50 UNIT SUBCUT (18:49)
[2025-04-03] MEDS: HYDROmorphone 0.5 MG/0.5 ML INJ IVP ×2 (19:43→21:47)
[2025-04-03 21:43] LABS: Glucose Point of Care 167 mg/dL (70-110)
[2025-04-03] MEDS: gabapentin 300 mg Capsule 600 MG PO (21:46)
[2025-04-03] MEDS: quetiapine 100 mg Tablet 200 MG PO (21:46)
[2025-04-03] MEDS: polyethylene glycol 3350 Pkt 17 gm PO (21:47)
[2025-04-03] MEDS: insulin lispro 100 unit/1 mL SUBCUT (21:47)
--- NOTE | 2025-04-03 22:39 | PC.NURSE ---
Around 2129 patient ambulated OOB to commode and had BM. Cath site intact, no signs of bleeding or hematoma. Educated patient on activity restrictions and symptoms to call nurse for.
[2025-04-04] VITALS (8 sets, daily range): BP systolic 102–132; BP diastolic 50–79; PULSE 77–87; RESP 14–24; TEMP 36.2–36.8; O2SAT 90–95
[2025-04-04] MEDS: ipratropium-albuterol 3 mL Neb INHALATION (02:07)
[2025-04-04 05:18] LABS: Basophils # 0.1 10^3/uL (0.0-0.1); Basophils % 0.7 %; Eosinophils # 2.8 10^3/uL (0.0-0.8); Eosinophils % 18.7 %; Hematocrit 29.7 % (36-47); Lymphocytes # 2.3 10^3/uL (0.8-4.8); Lymphocytes % 15.3 %; Mean Corpuscular HGB Conc 29.6 g/dL (30-55); Mean Corpuscular Hemoglobin 21.9 pg (27-33); Mean Corpuscular Volume 74.1 fl (85-98); Mean Platelet Volume 8.8 fL (7.4-10.4); Monocytes # 1.3 10^3/uL (0.2-0.9); Monocytes % 8.4 %; Neutrophils # 7.63 10^3/uL (1.8-7.7); Neutrophils % 50.6 %; Nucleated Red Blood Cells % 0 %; Platelet Count 568 10^3/cmm (157-399); Red Blood Count 4.01 10^6/uL (3.85-5.65); Red Cell Distribution Width 19.2 % (12.1-15.1); White Blood Count 15.05 10^3/uL (3.29-11.43)
[2025-04-04] MEDS: aspirin 81 mg EC Tablet PO (05:32)
[2025-04-04 05:35] LABS: Anion Gap 14.8 (5-19); Blood Urea Nitrogen 30 mg/dL (6-20); Calcium 8.6 mg/dL (8.5-10.5); Carbon Dioxide 25 mmol/L (22-29); Chloride 102 mmol/L (98-107); Creatinine Clr Calc Pharmacy 93.2828; Glomerular Filtration Rate 73.9 mL/min (90-130); Glucose 119 mg/dL (65-115); Osmolality Calculated 291 mOsm/kg (285-295); Potassium 4.8 mmol/L (3.5-5.1); Sodium 137 mmol/L (136-145)
[2025-04-04 06:07] LABS: Slide Review Slide Review Perform
[2025-04-04 06:12] LABS: Glucose Point of Care 144 mg/dL (70-110)
[2025-04-04] MEDS: ipratropium 0.5 mg/2.5 mL Neb INHALATION (07:39)
[2025-04-04] MEDS: levalbuterol 0.63 mg/3 mL Neb INHALATION (07:39)
[2025-04-04] MEDS: budesonide 0.5 mg/2 mL Neb INHALATION (07:39)
--- NOTE | 2025-04-04 08:24 | P.PN_ITS ---
Vitals/I&O/Wt Last Vital Signs Temp 97.2 F L 04/04/25 08:00 Pulse 85 04/04/25 08:00 Resp 24 H 04/04/25 08:00 BP 114/67 04/04/25 08:00 Pulse Ox 92 04/04/25 08:00 O2 Del Method Nasal Cannula 04/04/25 08:00 O2 Flow Rate 2 04/04/25 08:00 04/03/25 04/04/25 04/04/25 22:59 06:59 14:59 Intake Total 1440 / 2160 1075 / 3235 Output Total 2200 / 4300 Balance -760 / -2140 1075 / -1065 Weight last 48 hrs Weight 231 lb 4.238 oz Weight 225 lb Physical Exam 2 Urinary Catheter Management: [place]: Cath Placed During This Visit: yes Urethral Indwelling: Yes Reason for Continuing Indwelling Catheter: Accurate Measurement of Urinary Output in Critically Ill Patients Urinary Catheter Date of Insertion: 03/29/25 Urinary Catheter Time of Insertion: 14:36 Data 04/04/25 04:29 04/04/25 04:29 Micro: Microbiology 03/29/25 07:12 Blood Culture - Final Blood NO GROWTH AFTER 5 DAYS 03/29/25 07:12 Blood Culture - Final Blood NO GROWTH AFTER 5 DAYS A&P PDMP PDMP Reviewed: Not Reviewed Coding Level of Care Code Acute Code for Chg Fwd
[2025-04-04] MEDS: ticagrelor 90 mg Tablet PO (08:59)
[2025-04-04] MEDS: polyethylene glycol 3350 Pkt 17 gm PO (08:59)
[2025-04-04] MEDS: oxybutynin chloride XL 5 MG TABLET 20 MG PO (09:00)
[2025-04-04] MEDS: CELEcoxib 200 mg Capsule PO (09:00)
[2025-04-04] MEDS: insulin lispro 100 unit/1 mL SUBCUT (09:00)
[2025-04-04] MEDS: gabapentin 300 mg Capsule PO (09:00)
[2025-04-04] MEDS: insulin glargine 100 units/1 mL 50 UNIT SUBCUT (09:00)
[2025-04-04] MEDS: nitrofurantoin SR (BID) 100 mg Capsule PO (09:00)
[2025-04-04] MEDS: pantoprazole DR 40 mg Tablet PO (09:00)
[2025-04-04] MEDS: duloxetine 60 mg Capsule PO (09:00)
[2025-04-04] MEDS: metoprolol tartrate 25 mg Tablet PO (09:20)
--- NOTE | 2025-04-04 11:03 | PM.DCS ---
Discharge Providers Date of Admission: 03/29/25 10:41 Date of Discharge: April 04, 2025 Attending Provider at Admission: Avila Marie Attending Provider at Discharge: Kamila Davenport MD Consults: Inpatient consult to cardiology Primary Care Provider: Javier Shields MD Diagnoses at Discharge Discharge Diagnosis (1) Sepsis: Status: Resolved (2) Acute respiratory failure with hypoxia: Status: Resolved (3) Multifocal pneumonia: Status: Acute (4) Acute UTI: Status: Acute (5) NSTEMI (non-ST elevated myocardial infarction): Status: Acute (6) Diastolic heart failure: Status: Acute Qualifiers: Heart failure chronicity: acute Qualified Code(s): I50.31 - Acute diastolic (congestive) heart failure (7) Pleuritic chest pain: Status: Resolved (8) Constipation: Status: Acute (9) Moderate aortic stenosis: Status: Acute (10) COPD (chronic obstructive pulmonary disease): Status: Acute Reason for Visit Reason for Visit: Resp Distre Brief History: This is a 59-year-old female with COPD, chronic HFpEF, chronic hypoxic respiratory failure (2 L/min O2) CAD, PAD status post bilateral transmetatarsal amputation, hypertension, hyperlipidemia, carotid artery disease, DM2, chronic pain syndrome, rheumatoid arthritis, and fibromyalgia who presented with fever, hypotension, and hypoxia. She had elevated WBC and chest x-ray showed bilateral pulmonary infiltrates. UA was positive for UTI. Hospital Course Hospital Course She met criteria for septic shock on admission. She was started on empiric IV antibiotics and required IV pressors on admission. Urine culture grew E. coli. She was discharged home on oral antibiotics. She had acute on chronic hypoxic respiratory failure (up to 10 L/min O2 on admission) secondary to her pneumonia, COPD, and CHF. She was thought to have a component of aspiration. CLIENT INTEGRATION MANAGER was consulted. She did not have any dysphagia on evaluation but does need to utilize chin tuck with liquids. She is now saturating well on her baseline 2 L/min O2. She had an NSTEMI. Troponin was elevated and stress test was positive. She had a cardiac cath on 04/03/2024. Her RCA had prior stents with severe ISR. She had successful revascularization with balloon angioplasty. She is on aspirin and ticagrelor. She is also on ezetimibe and was started on atorvastatin. She is opioid dependence and is on Suboxone. She was lethargic on admission and thought to have unintentionally overdosed on her Suboxone. Her Suboxone dose was decreased. Patient should hold her tramadol until seen by her PCP. Her pregabalin was discontinued. She is on multiple sedating medications and this should be reviewed by her PCP. Physical Exam Const: COMMON NORMALS: no acute distress, patient oriented x3 and healthy appearing GENERAL APPEARANCE: cooperative HENMT: COMMON NORMALS: normocephalic, atraumatic and hearing grossly normal bilaterally HEAD & SCALP: normocephalic and atraumatic Eye: COMMON NORMALS: Equal, round and reactive pupils present and EOMs intact bilaterally PUPIL: Yes Equal, round and reactive pupils present Neck/C-Spine: COMMON NORMALS: supple and no JVD Lymph: LYMPHATIC: no lymphadenopathy noted Chest: COMMONS NORMALS: normal inspection of the chest Resp: COMMON NORMALS: normal respiratory effort and clear to auscultation bilaterally AUSCULTATION: clear to auscultation bilaterally Cardio: COMMON NORMALS: no JVD, regular rate, regular rhythm and No murmurs present (Cardio) RATE: regular rate RHYTHM: regular rhythm GI: COMMON NORMALS: Normal to inspection, nondistended, normoactive bowel sounds present : COMMON NORMALS: Yes no CVA tenderness BLADDER/KIDNEY EXAM: Yes no CVA tenderness Back/Pelvis: COMMON NORMALS: no CVA tenderness Extremity: COMMON NORMALS: normal to inspection OTHER: bilateral transmetatarsal amputation Neuro: COMMON NORMALS: patient oriented x3 and moves all extremities SPEECH: speech normal Psych: COMMON NORMALS: mental status grossly normal JUDGEMENT: Good judgement present (Psych) Skin: COMMON NORMALS: no rashes or lesions noted GENERAL SKIN EXAM: no rashes or lesions noted Urinary Catheter Management: [place]: Cath Placed During This Visit: yes Urethral Indwelling: Yes Reason for Continuing Indwelling Catheter: Accurate Measurement of Urinary Output in Critically Ill Patients Urinary Catheter Date of Insertion: 03/29/25 Urinary Catheter Time of Insertion: 14:36 Discharge Data Studies Completed and Pending Completed Studies During Hospitalization Category Date Time Status CT angio chest PE protcl 82521 Stat Cat Scan 03/29/25 10:08 Completed FL barium swallow modifd 83216 Routine Exams 04/01/25 08:30 Completed XR chest 1V portable [id number] Stat Exams 03/29/25 06:41 Completed NM jb perf SPECT r/s* [id number] Routine Nuc Med 04/02/25 15:12 Completed CV. echo complete* [id number] Routine Ultrasound 03/30/25 12:23 Completed Pending at discharge Category Date Time Status ICE HOUSE SUPERVISOR request for service Routine Exams 04/03/25 07:01 Taken Cardiac Stress Test MIBI [Sestamibi Stress Test Request Exams 04/01/25 15:12 Ordered ] Routine Radiology Impressions Chest X-Ray 03/29/25 06:41 Impression: Bilateral pulmonary opacities which are most likely pulmonary vascular congestion. Chest CTA 03/29/25 10:08 IMPRESSION: 1. No evidence of large or central pulmonary embolism. 2. Sensitivity for pulmonary embolism is limited due to contrast bolus timing. 3. Fairly stable chronic mediastinal lymphadenopathy, largest in the subcarinal region measuring a proximally 5 x 2.5 cm. 4. Extensive bilateral patchy multifocal airspace disease with slight upper lobe predominance. Probable multifocal pneumonia. Modified Barium Swallow 04/01/25 08:30 IMPRESSION: 1. No aspiration. 2. Minimal laryngeal penetration with some of the liquids. Please see speech therapist report also for recommendations. Laboratory Results WBC 15.05 10^3/uL (3.29-11.43) H 04/04/25 04:29 RBC 4.01 10^6/uL (3.85-5.65) 04/04/25 04:29 Hgb 8.80 g/dL (11.27-16.99) L 04/04/25 04:29 Hct 29.7 % (36-47) L 04/04/25 04:29 MCV 74.1 fl (85-98) L 04/04/25 04:29 MCH 21.9 pg (27-33) L 04/04/25 04:29 MCHC 29.6 g/dL (30-55) L 04/04/25 04:29 RDW 19.2 % (12.1-15.1) H 04/04/25 04:29 Plt Count 568 10^3/cmm (157-399) H 04/04/25 04:29 MPV 8.8 fL (7.4-10.4) 04/04/25 04:29 Neut % (Auto) 50.6 % 04/04/25 04:29 Lymph % (Auto) 15.3 % 04/04/25 04:29 [place] % (Auto) 8.4 % 04/04/25 04:29 Eos % (Auto) 18.7 % 04/04/25 04:29 Baso % (Auto) 0.7 % 04/04/25 04:29 Neut # (Auto) 7.63 10^3/uL (1.8-7.7) 04/04/25 04:29 Lymph # (Auto) 2.3 10^3/uL (0.8-4.8) 04/04/25 04:29 [place] # (Auto) 1.3 10^3/uL (0.2-0.9) H 04/04/25 04:29 Eos # (Auto) 2.8 10^3/uL (0.0-0.8) H 04/04/25 04:29 Baso # (Auto) 0.1 10^3/uL (0.0-0.1) 04/04/25 04:29 Nucleated RBC % (auto) 0 % 04/04/25 04:29 Total Counted 100 (0-100) 04/02/25 05:32 Atypical Lymphs % 0.0 % (0-5) 04/02/25 05:32 Absolute Neutrophils 6.5 10^3/cmm (1.4-6.5) 04/02/25 05:32 Segmented Neutrophils 42 % 04/02/25 05:32 Band Neutrophils 4.0 % 04/02/25 05:32 Absolute Lymphocytes 4.9 10^3/cmm (1.2-3.4) H 04/02/25 05:32 Lymphocytes (Manual) 35 % 04/02/25 05:32 Monocytes (Manual) 2.0 % 04/02/25 05:32 Absolute Monocytes 0.3 10^3/cmm (0.1-0.6) 04/02/25 05:32 Eosinophils (Manual) 12 % 04/02/25 05:32 Absolute Eosinophils 1.7 10^3/cmm (0.0-0.7) H 04/02/25 05:32 Basophils (Manual) 0.0 % 04/02/25 05:32 Absolute Basophils 0.0 10^3/cmm (0.0-0.2) 04/02/25 05:32 Metamyelocytes 2.0 % 04/02/25 05:32 Myelocytes 2.0 % 04/02/25 05:32 Promyelocytes 1.0 % 04/02/25 05:32 Nucleated RBCs # 0.0 /100WBC 04/04/25 04:29 Platelet Estimate Increased (Normal) H 04/02/25 05:32 APTT 31.2 SECONDS (23.9-36.7) D 04/03/25 13:38 Specimen Type Arterial 03/29/25 06:39 Sample Site Radial, left 03/29/25 06:39 ABG pH 7.33 (7.35-7.45) L 03/29/25 06:39 ABG pCO2 37.0 mmHg (35-45) 03/29/25 06:39 ABG pO2 61.6 mmHg (80.0-100.0) L 03/29/25 06:39 ABG HCO3 19.5 mmol/L (22-26) L 03/29/25 06:39 ABG O2 Saturation 88.3 03/29/25 06:39 ABG Base Excess -5.8 mmol/L (-2.0-2.0) L 03/29/25 06:39 Freddy Test Pos 03/29/25 06:39 A-a O2 Gradient 5.4 mmHg (5-10) 03/29/25 06:39 Hematocrit 34.3 % (37-47) L 03/29/25 06:39 Hgb O2 Saturation 86.7 % (95-100) L 03/29/25 06:39 Carboxyhemoglobin 0.6 %THgb (0.4-20.1) 03/29/25 06:39 Methemoglobin 1.2 % (0.4-1.5) 03/29/25 06:39 Total Hemoglobin 11.2 g/dL (12-16) L 03/29/25 06:39 Sodium 139.0 mmol/L (131-143) 03/29/25 06:39 Potassium 4.4 mmol/L (3.5-5.0) 03/29/25 06:39 Glucose 262.0 mg/dL (70-115) H 03/29/25 06:39 Ionized Calcium 1.2 mmol/L (1.1-1.4) 03/29/25 06:39 O2 Delivery Device Nc 03/29/25 06:39 O2 Liters/Min 10.0 % 03/29/25 06:39 Career Portals Teacher ID [email or web address] 03/29/25 06:39 Sodium 137 mmol/L (136-145) 04/04/25 04:29 Potassium 4.8 mmol/L (3.5-5.1) 04/04/25 04:29 Chloride 102 mmol/L (98-107) 04/04/25 04:29 Carbon Dioxide 25 mmol/L (22-29) 04/04/25 04:29 Anion Gap 14.8 (5-19) 04/04/25 04:29 BUN 30 mg/dL (6-20) H 04/04/25 04:29 Creatinine 0.8 mg/dL (0.5-0.9) 04/04/25 04:29 GFR Calculation 73.9 mL/min (90-130) L 04/04/25 04:29 Glucose 119 mg/dL (65-115) H 04/04/25 04:29 POC Glucose 144 mg/dL (70-110) H 04/04/25 06:08 Estimat Average Glucose 206 03/30/25 05:05 Hemoglobin A1c 8.8 % (4.0-6.0) H 03/30/25 05:05 Calculated Osmolality 291 mOsm/kg (285-295) 04/04/25 04:29 Lactic Acid 3.3 mmol/L (0.5-2.2) H 03/29/25 07:04 Lactic Acid (Sepsis) 2.4 mmol/L (0.5-2.2) H 03/29/25 08:58 Calcium 8.6 mg/dL (8.5-10.5) 04/04/25 04:29 Magnesium 2.2 mg/dL (1.7-2.3) 04/01/25 02:06 Iron 19 ug/dL (37-145) L 03/30/25 05:05 TIBC 311 mcg/dl 03/30/25 05:05 % Saturation 6.1 % (20-50) L 03/30/25 05:05 Unsat Iron Binding 292 ug/dL (112-347) 03/30/25 05:05 Total Bilirubin 0.2 mg/dL (0.15-1.2) 04/01/25 02:06 AST 11 U/L (0-32) 04/01/25 02:06 ALT 16 U/L (0-33) 04/01/25 02:06 Alkaline Phosphatase 77 U/L (35-105) 04/01/25 02:06 Troponin T Baseline 44 ng/L (0-10) H 03/29/25 07:04 Troponin T 120 Minute 88.69 ng/L (0-10) H 03/29/25 08:58 Delta Troponin T 44.69 ABS# (0-10) H* 03/29/25 08:58 Troponin T Hi Sens 6Hr 120.8 ng/L (0-10) H 03/29/25 13:38 Troponin T Hi Sens 6Hr Delta 76.8 ng/L (0-12) H* 03/29/25 13:38 C-Reactive Protein 19.9 mg/L (0.0-4.9) H 03/29/25 07:15 NT-Pro-B Natriuret Pep 445 pg/mL (0-125) H 03/29/25 07:15 Total Protein 6.8 g/dL (6.6-8.7) 04/01/25 02:06 Albumin 3.6 g/dL (3.5-5.2) 04/01/25 02:06 Globulin 3.2 g/dL (1.3-4.6) 04/01/25 02:06 Vitamin B12 413 pg/mL (232-1245) 03/30/25 05:05 Folate 8.5 ng/mL (4.8-37.3) 03/31/25 04:05 Procalcitonin 1.19 ng/mL (0-0.5) H 03/31/25 04:05 TSH 0.57 uIU/mL (0.27-4.20) 03/30/25 05:05 Urine Color Yellow (Yellow) 03/29/25 07:25 Urine Appearance Cloudy (CLEAR) A 03/29/25 07: Urine pH 5 (5-7) 03/29/25 07:25 Ur Specific [place] 1.031 (1.005-1.030) H 03/29/25 07:25 Urine Protein 1+ (Negative) H 03/29/25 07:25 Urine Glucose (UA) 3+ (Normal) H 03/29/25 07:25 Urine Ketones Negative (Negative) 03/29/25 07:25 Urine Blood Neg (Negative) 03/29/25 07:25 Urine Nitrate Positive (Negative) A 03/29/25 07:25 Urine Bilirubin Neg (Negative) 03/29/25 07:25 Urine Urobilinogen 0.2 mg/dL (Negative) 03/29/25 07:25 Ur Leukocyte Esterase Negative (Negative) 03/29/25 07:25 Urine RBC 0-4 /hpf (0-2) H 03/29/25 07:25 Urine WBC 6-10 /hpf (0-5) 03/29/25 07:25 Ur Squamous Epith Cells 0-4 /hpf (0-5) H 03/29/25 07:25 Amorphous Sediment Not Reportable 03/29/25 07:25 Urine Bacteria 4+ /hpf (NONE) H 03/29/25 07:25 Hyaline Casts 3.71 /lpf 03/29/25 07:25 Nasal MRSA (PCR) Not detected (Not Detecte) 03/29/25 13:44 Vancomycin Trough 12.8 ug/mL (10-15) 04/01/25 20:30 Influenza A (PCR) Negative (Negative) 03/29/25 07:04 Influenza Type B (PCR) Negative (Negative) 03/29/25 07:04 RSV (PCR) Negative (Negative) 03/29/25 07:04 SARS-CoV-2 (PCR) Negative (Negative) 03/29/25 07:04 Vitals Last Vital Signs Temp 97.2 F L 04/04/25 08:00 Pulse 85 04/04/25 08:00 Resp 24 H 04/04/25 08:00 BP 114/67 04/04/25 08:00 Pulse Ox 92 04/04/25 08:00 O2 Del Method Nasal Cannula 04/04/25 08:00 O2 Flow Rate 2 04/04/25 08:00 Discharge Plan Discharge Patient Disposition: Home Condition: Stable Prescriptions: New metoprolol tartrate 25 mg Tablet 25 mg PO BID@0900,2100 Qty: 60 0RF nitrofurantoin monohyd/m-cryst 100 mg Capsule 100 mg PO BID 3 Days Qty: 6 0RF atorvastatin [Lipitor] 40 mg tablet 40 mg PO QPM Qty: 30 0RF Continued (DME) Blood Glucose Test Strip See Rx Instructions .Route Qty: 100 0RF Rx Instructions: tid ac meals albuterol sulfate 90 mcg/actuation HFA aerosol inhaler 2 puff inhalation Q6H PRN (Reason: shortness of breath or wheezing) Qty: 8.5 3RF (DME) blood-glucose meter Misc See Rx Instructions .Route Qty: 1 0RF Rx Instructions: dailyAs directed cyclobenzaprine 10 mg tablet 10 mg PO TID PRN (Reason: Muscle Spasm) Qty: 90 3RF duloxetine 60 mg capsule,delayed release(DR/EC) 60 mg PO DAILY Qty: 30 4RF nitroglycerin [Nitrostat] 0.4 mg tablet, sublingual 0.4 mg SUBLINGUAL Q5M PRN (Reason: Chest Pain) Qty: 30 4RF Rx Instructions: do not exceed 3 doses per episode (DME) pen needle, diabetic [Comfort EZ Pen [place]] 32 gauge x 5/32 needle See Rx Instructions .Route Qty: 100 2RF Rx Instructions: use 3times a day to inject insulin. (DME) pen needle, diabetic [Comfort EZ Pen [place]] 31 gauge x 5/16 needle See Rx Instructions .Route Qty: 100 6RF Rx Instructions: use daily with levemir quetiapine 200 mg tablet 200 mg PO BEDTIME Qty: 30 4RF epinephrine [EpiPen 2-Pankaj] 0.3 mg/0.3 mL auto-injector 0.3 mg IM Q4H PRN (Reason: anaphylaxis) Qty: 2 0RF ticagrelor [Brilinta] 90 mg tablet 90 mg PO BID Qty: 180 3RF losartan 50 mg tablet 50 mg PO DAILY@0800 Qty: 30 4RF (DME) Blood Glucose Test Strip See Rx Instructions .Route Qty: 50 3RF Rx Instructions: As directed accucheck test strips for accu check machine oxybutynin chloride 10 mg tablet extended release 24hr 20 mg PO DAILY gabapentin 300 mg capsule 300 mg PO TID varenicline tartrate 1 mg tablet 1 mg PO BID insulin glargine [Lantus Solostar U-100 Insulin] 100 unit/mL (3 mL) insulin pen 50 unit SUBCUT BID furosemide 40 mg tablet 40 mg PO DAILY PRN (Reason: Edema) (DME) Wheel chair See Rx Instructions .Route .MEDSUPPLY Qty: 1 0RF Rx Instructions: As directed (DME) Diabetic shoes with 3 sets of insoles and toe filler to right See Rx Instructions .Route .MEDSUPPLY Qty: 1 0RF Rx Instructions: As directed (DME) lanclilia [facility] [place] See Rx Instructions .Route Qty: 100 0RF Rx Instructions: 1 tid aspirin 81 mg tablet,delayed release (DR/EC) 81 mg PO QAM Qty: 30 4RF ezetimibe 10 mg tablet 10 mg PO DAILY Qty: 30 4RF metformin 500 mg tablet 500 mg PO BID Trulicity 1.5 mg/0.5 mL pen injector 1.5 mg SUBCUT Q7D Rx Instructions: Tuesday pantoprazole 40 mg tablet,delayed release (DR/EC) 40 mg PO QAM PRN (Reason: Acid Reflux) Jardiance 25 mg tablet 25 mg PO DAILY cilostazol 100 mg tablet 100 mg PO BID dorzolamide-timolol 22.3-6.8 mg/mL drops 1 drp ophthalmic (eye) BID Changed buprenorphine-naloxone 2-0.5 mg tablet, sublingual 1 tab sublingual BID PRN (Reason: Pain, Moderate) Qty: 6 0RF Rx Instructions: DISSOLVE 1 tablet UNDER THE TONGUE two TIMES DAILY NEEDED. Held tramadol 50 mg tablet 50 - 100 mg PO Q6H PRN (Reason: Pain) Hold Instructions: Resume on 04/11/25. hold until seen by PCP Discontinued sulfamethoxazole-trimethoprim 800-160 mg tablet 1 tab PO BID pregabalin 300 mg capsule 300 mg PO BID No Action neomycin-polymyxin B-dexameth 3.5 mg/g-10,000 unit/g-0.1 % ointment See Rx Instructions .ROUTE .COMPLEX Rx Instructions: APPLY SMALL AMOUNT IN RIGHT EYE EVERY NIGHT. Discharge Orders: Discharge Order (Routine); Ordered 04/04/25 Ordered By: Kamila Davenport Other Ambulatory Orders: DME: Oxygen (Order) Location: None Selected Ordered By: Kamila Davenport Referrals: Yessenia Gibson NP [Nurse Practitioner, Cardiology] - 04/15/25 1:00 pm Javier Shields MD [Primary Care Provider, Internal Medicine] - 04/12/25 10:40 am Discharge Diet: Diabetic Discharge Activity: Resume usual activity Patient Instructions: Nitrofurantoin (By mouth), Metoprolol (By mouth), Atorvastatin (By mouth), Coronary Angioplasty (DC), Urinary Tract Infection in Women (DC), Chest Pain Stoplight, Opioid Safety, Post Angiogram Home Care Instructions Discharge Attestations Time Spent in Discharge Care*: greater than 30 min Status at Discharge: Cognitive status at discharge: cognitively intact, Behavioral status at discharge: cooperative, Quality Metrics Clinical Quality Measures [ Acute Myocardial Infaction { Clinical Trial Participant: No; Contraindication to aspirin: None; Aspirin prescribed; Contraindication to statin: None; Statin prescribed;}] Coding Level of Care Code 66552 Diagnoses Sepsis A41.9 Acute respiratory failure with hypoxia J96.01 Multifocal pneumonia J18.9 Acute UTI N39.0 NSTEMI (non-ST elevated myocardial infarction) I21.4 Acute diastolic heart failure I50.31 Heart failure chronicity: acute Pleuritic chest pain R07.81 Constipation K59.00 Moderate aortic stenosis I35.0 COPD (chronic obstructive pulmonary disease) J44.9
[2025-04-04 12:19] LABS: Glucose Point of Care 127 mg/dL (70-110)
--- NOTE | 2025-04-04 12:27 | PC.NURSE ---
Discharge Note Patient discharged to home via MTM ride accompanied by medical delivery driver. Discharge instructions reviewed with patient and/or lead customer service representative. Mobile pharmacy medications and/or prescriptions provided. Belongings/home medications returned. Waiting for oxygen delivery for portable use to get through home around 1 pm, then MTM ride will be here around 1:30 om per case mgt.
--- NOTE | 2025-04-04 12:31 | PC.NURSE ---
post angiogram home care instructions discussed to pt.
== END 2025-04-04 12:26 | disposition home or self-care (01) | DRG 853 ==
LOC: ER 07:40 → ICU 10:41 → MEDSURG 03-30 15:10 → CSU 04-03 09:24
PROVIDERS: Internal Medicine; Student in an Organized Health Care Education/Training Program; Admitting Provider Internal Medicine; Emergency Provider Family Medicine; PCP Internal Medicine; Visit Provider Student in an Organized Health Care Education/Training Program
PROC: 4A023N7 Measurement of Cardiac Sampling and Pressure, Left Heart, Percutaneous Approach (ICD-10-PCS; principal; 2025-04-03 08:30)
PROC: 4A023N7 Measurement of Cardiac Sampling and Pressure, Left Heart, Percutaneous Approach (ICD-10-PCS; 2025-04-03 08:30)
DX: A41.9 Sepsis, unspecified organism (principal); I21.4 Non-ST elevation (NSTEMI) myocardial infarction; J96.21 Acute and chronic respiratory failure with hypoxia; I50.33 Acute on chronic diastolic (congestive) heart failure; J18.9 Pneumonia, unspecified organism; T82.855A Stenosis of coronary artery stent, initial encounter; I69.951 Hemiplegia and hemiparesis following unspecified cerebrovascular disease affecting right dominant side; J44.0 Chronic obstructive pulmonary disease with (acute) lower respiratory infection; F11.20 Opioid dependence, uncomplicated; Z89.422 Acquired absence of other left toe(s); Z89.421 Acquired absence of other right toe(s); I25.10 Atherosclerotic heart disease of native coronary artery without angina pectoris; I11.0 Hypertensive heart disease with heart failure; E78.2 Mixed hyperlipidemia; E11.51 Type 2 diabetes mellitus with diabetic peripheral angiopathy without gangrene; E66.9 Obesity, unspecified; Z99.81 Dependence on supplemental oxygen; Z79.84 Long term (current) use of oral hypoglycemic drugs; Z79.4 Long term (current) use of insulin; Z79.82 Long term (current) use of aspirin; Z88.1 Allergy status to other antibiotic agents; Z88.8 Allergy status to other drugs, medicaments and biological substances; Z88.0 Allergy status to penicillin; Z88.5 Allergy status to narcotic agent; Z91.040 Latex allergy status; Z91.018 Allergy to other foods; F17.210 Nicotine dependence, cigarettes, uncomplicated; F17.290 Nicotine dependence, other tobacco product, uncomplicated; G43.909 Migraine, unspecified, not intractable, without status migrainosus; I95.9 Hypotension, unspecified; K59.00 Constipation, unspecified; I35.0 Nonrheumatic aortic (valve) stenosis; T50.7X1A Poisoning by analeptics and opioid receptor antagonists, accidental (unintentional), initial encounter
CPT/HCPCS: 36415; 36416; 36600; 51702; 71045; 71275; 74230; 78452; 80048; 80051; 80053; 80202; 81001; 82330; 82607; 82746; 82805; 82962; 83036; 83540; 83550; 83605; 83735; 83880; 84145; 84443; 84484; 85007; 85025; 85347; 85730; 86140; 86403; 87040; 87077; 87086; 87186; 87449; 87637; 92526; 92610; 92611; 92920; 93005; 93017; 93306; 93454; 94640; 94664; 94760; 96365; 96367; 96372; 96374; 96375; 96376; 99152; 99153; 99285; 99291; A9500; C1725; C1769; C1887; C1894; J1171; J1200; J1644; J1815; J1938; J2185; J2250; J2270; J2470; J2543; J2785; J2919; J3370; J7030; J7614; J7626; J7644; J9999; Q0144; Q0163; Q3014; Q9967

== ENCOUNTER → 2025-04-15 13:13 | Outpatient (BNVA) | payer MEDICARE, MEDICAID, SELFPAY | PROVIDERS: PCP Internal Medicine; Visit Provider Nurse Practitioner Family | DX: I11.0 Hypertensive heart disease with heart failure (principal); I50.30 Unspecified diastolic (congestive) heart failure; Z09 Encounter for follow-up examination after completed treatment for conditions other than malignant neoplasm; I25.10 Atherosclerotic heart disease of native coronary artery without angina pectoris; J96.11 Chronic respiratory failure with hypoxia; Z99.81 Dependence on supplemental oxygen; I73.9 Peripheral vascular disease, unspecified; J44.9 Chronic obstructive pulmonary disease, unspecified; E78.5 Hyperlipidemia, unspecified; I77.9 Disorder of arteries and arterioles, unspecified; E11.9 Type 2 diabetes mellitus without complications; Z79.4 Long term (current) use of insulin; M06.9 Rheumatoid arthritis, unspecified; M79.7 Fibromyalgia; Z79.82 Long term (current) use of aspirin; Z95.5 Presence of coronary angioplasty implant and graft; F11.21 Opioid dependence, in remission; Z87.891 Personal history of nicotine dependence; I25.2 Old myocardial infarction | CPT/HCPCS: 36415; 80048; 99214 ==

== ENCOUNTER → 2025-05-09 12:34 | Outpatient (BNVA) | payer MEDICARE, MEDICAID, SELFPAY | PROVIDERS: PCP Internal Medicine; Visit Provider Orthopaedic Surgery | DX: G56.03 Carpal tunnel syndrome, bilateral upper limbs (principal); G56.21 Lesion of ulnar nerve, right upper limb | CPT/HCPCS: 99204 ==

== ENCOUNTER → 2025-05-14 08:27 | Outpatient (BNVA) | payer MEDICARE, MEDICAID, SELFPAY | PROVIDERS: PCP Internal Medicine; Visit Provider Podiatrist Foot & Ankle Surgery | DX: E11.8 Type 2 diabetes mellitus with unspecified complications (principal); Z89.411 Acquired absence of right great toe; Z89.412 Acquired absence of left great toe; E11.42 Type 2 diabetes mellitus with diabetic polyneuropathy; Z79.4 Long term (current) use of insulin; Z79.84 Long term (current) use of oral hypoglycemic drugs | CPT/HCPCS: 99213 ==

== ENCOUNTER 2025-06-20 16:24 | Emergency (ER) | payer MEDICARE, MEDICAID, SELFPAY ==
--- OUTSIDE RECORDS SUMMARY | 2025-04-23 09:00 | XMS_ITS ---
Author Organization [facility] Address [address] [place] [address] Care Team Providers Care Paraprofessional Aide Teacher Name Role Phone Alonzo Shields Primary Care Provider REASON FOR VISIT 3 month f/u Encounters Encounter Location Date Provider Diagnosis [facility] [address] [phone] 04/23/2025 Alonzo Shields Plan Of Treatment Next Appt Details Provider Name:Alonzo Shields, 06/26/2025 01:00:00 PM, [address], [phone], Progress Notes * MENDOZA SELENE BDOB: [birth year] (60 yo F)Acc No.[id number]:04/23/2025 Progress Notes Patient: SELENE LEONARDO Provider: Christy Shields MD :1965 A ge:59 Y S ex:Female Date:04/23/2025 Address:[address] Subjective: * Chief Complaints: * 3 month f/u Care Plan Details* * Electronic signature of Babak Shields MD on 06/20/2025 at 04:38 PM CDT Sign off status: Pending * Provider: Christy Shields MD Date: 0 04/23/2025 Generated for Madelinei ng/Faxing/eTransmitting on: 0 06/20/2025 04:38 PM CDT
--- OUTSIDE RECORDS SUMMARY | 2025-04-30 10:40 | XMS_ITS ---
Author Organization [facility] Address [address] [place] [address] Care Team Providers Care Manager Action Name Role Phone Alonzo Shields Primary Care Provider [phone] REASON FOR VISIT pain Encounters Encounter Location Date Provider Diagnosis [facility] [address] [phone] 04/30/2025 Alonzo Shields Plan Of Treatment Next Appt Details Provider Name:Alonzo Shields, 06/26/2025 01:00:00 PM, [address] [place] [address], [phone], Progress Notes * SELENE MENDOZA BDOB: [birth year] (60 yo F)Acc No.[id number]:04/30/2025 Progress Notes Patient: SELENE LEONARDO Provider: Christy Shields MD :1965 A ge:59 Y S ex:Female Date:04/30/2025 Address:[address] Subjective: * Chief Complaints: * P ain Billing Information: * Procedure Codes: Care Plan Details* * Electronic signature of Babak Shields MD on 06/20/2025 at 04:38 PM CDT Sign off status: Pending * Provider: Christy Shields MD Date: 0 04/30/2025 Generated for Madelinei ng/Faxing/eTransmitting on: 0 06/20/2025 04:38 PM CDT
--- OUTSIDE RECORDS SUMMARY | 2025-05-13 10:20 | XMS_ITS ---
Author Organization [facility] Address [address] [place] [address] Care Team Providers Care Staff Toxicologist Name Role Phone Alonzo Shields Primary Care Provider REASON FOR VISIT PAIN Encounters Encounter Location Date Provider Diagnosis [facility] [address] [address] 05/13/2025 Alonzo Shields Plan Of Treatment Next Appt Details Provider Name:Alonzo Shields, 06/26/2025 01:00:00 PM, [address] [place] [address], [phone], Progress Notes * SELENE MENDOZA BDOB: [birth year] (60 yo F)Acc No.[id number]:05/13/2025 Progress Notes Patient: SELENE LEONARDO Provider: Christy Shields MD :1965 A ge:59 Y S ex:Female Date:05/13/2025 Address:[address] Subjective: * Chief Complaints: * P AIN Billing Information: * Procedure Codes: Care Plan Details* * Electronic signature of Babak Shields MD on 06/20/2025 at 04:38 PM CDT Sign off status: Pending * Provider: Christy Shields MD Date: 05/13/2025 Generated for Madelinei ng/Faxing/eTransmitting on: 06/20/2025 04:38 PM CDT
[2025-06-20] VITALS (7 sets, daily range): BP systolic 97–143; BP diastolic 43–71; PULSE 80–110; RESP 12–19; TEMP 36.9; O2SAT 92–99; BMI 33.9
--- NOTE | 2025-06-20 16:23 | ECG_ITS ---
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 Measurements Intervals [place] Rate: 111 P: 9 WI: 181 QRS: 15 QRSD: 96 T: 65 QT: 344 QTc: 468 Interpretive Statements SINUS TACHYCARDIA NONSPECIFIC ST & T-WAVE ABNORMALITY Compared to ECG 03/29/2025 13:18:13 T-wave abnormality now present Myocardial infarct finding no longer present Electronically Signed On 06-21-2025 09:10:56 CDT by Brad Lyles M.D. [id number]
--- NOTE | 2025-06-20 16:31 | XRR_ITS ---
PROCEDURE INFORMATION: Exam: XR Chest Exam date and time: 06/20/2025 4:39 PM Age: 60 years old Clinical indication: Pain; Chest pressure; Additional info: Chest pain TECHNIQUE: Imaging protocol: Radiologic exam of the chest. Views: 1 view. COMPARISON: CT angio chest PE protcl [id number] 03/29/2025 11:03 AM FINDINGS: Lungs: There is no consolidation. Minimal residual central lung predominant opacity, markedly decreased since 03/29/2025. Pleural spaces: There is no pleural effusion or pneumothorax. Heart/Mediastinum: Cardiomediastinal contours are unremarkable. Bones/joints: Bones are unremarkable. XR/XR chest 1V portable [id number] IMPRESSION: Markedly decreased bilateral central lung predominant pulmonary opacity since 03/29/2025. Findings suggest resolving infection or edema.
--- OUTSIDE RECORDS SUMMARY | 2025-06-20 16:39 | XMS_ITS | Patient Health Record ---
Author Organization [facility] Address [address] [place] [address] Care Team Providers Care Guest Service Agent Name Role Phone Alonzo Shields Primary Care Provider [phone] Migration, Provider Unavailable Unavailable Allergies Allergen (clinical drug ingredient) Drug/Non Drug Allergy documented on EMR Reaction Allergy Type Onset Date Status Vicodin Unknown Drug Allergy Active doxycycline Doxycycline Unknown Drug Allergy Act tushar peanut allergenic extract Peanut (Diagnostic) Unknown Drug Allergy Active codeine Codeine Unknown Drug Allergy Active Latex Latex Unknown Allergy Active Penicillin Unknown Drug Allergy Active phentolamine Phentolamine Unknown Drug Allergy A ctive Reason For Referral Reason Left CTS Diagnosis 1 Hypertension, unspec ified type (I10) Referral Organization [facility] Referring Provider First Name Tip bolden Referring Provider Last Name Alyson Referring Provider Speciality Internal M edicine Referred Provider Mata Gomez Referred Provider Specialty Orthopedic S urgery General Notes Mariya Johnson 05:00:34 PM >Faxed Tomer Bentley Heidi 04/03/2025 10:58:11 AM >UNABLE TO GET AHOLD OF OFFICE, Mariya Johnson 04/05/2025 09:02:20 AM >LVM with pt to call and schedule appt - Dr Gomez unable to contact ptTomer Heidi 04/08/2025 08:10:03 AM >PER FAX PT IS SCHEDULED ON 04/15, Jacey Sullivan 04/22/2025 04:39:11 PM >Rescheduled twice appt set for 04/30 @ 8:30am with Nate Escamilla Valerie 05/13/2025 02:04:12 PM CDT > 05/09/25 @ 's office- will be [facility] office notes, Jacey Sullivan 05/14/2025 01:18:43 PM CDT > Pt no longer under Dr. Shields's care. Referral Priority Routine Referral Appointment Date 05/09/2025 Medications Medication SIG (Take, Route, Frequency, Duration) Notes Start Date End Date Status metFORMIN HCl 500 mg Tablet TAKE 1 TABLET BY MOUTH TWICE DAILY; Duration: 60 Active Losartan Potassium 50 MG Tablet 1 tablet Orally Once a day Active Lantus SoloStar 100 UNIT/ML Solution Pen-injector 50 units Subcutaneous Twice a day; Duration: 30 days Active Isosorbide Mononitrate ER 60 MG Tablet Extended Release 24 Hour 1 tablet in the morning Orally Once a day Not-Taking Jardiance 25 MG Tablet 1 tablet Orally O nce a day Active hydrOXYzine HCl 25 MG Tablet 1 tablet as needed Orally Three times a day Not-Taking Furosemide 40 mg Tablet TAKE ONE TABLET BY MOUTH EVERY DAY; Duration: 120 Active hydrOXYzine HCl 25 MG Tablet 1 tablet as needed Orally BID Not-Taking Ezetimibe 10 MG Tablet 1 tablet Orally O nce a day Active Dulaglutide 0.75 MG/0.5ML Solution Pen-injector as directed Subcutaneous Not-Taking DULoxetine HCl 60 mg Capsule Delayed Release Particles TAKE ONE CAPSULE BY MOUTH EVERY DAY; Duration: 120 Active Doxycycline Hyclate 100 MG Tablet 1/2 tablet Orally Twice a day Not-Taking Buprenorphine HCl-Naloxone HCl 2-0.5 MG Tablet Sublingual 1 Sublingual TID prn; Duration: 30 days 03/25/2025 09/20/2025 Not-Taking Cyclobenzaprine HCl 10 mg Tablet TAKE ONE TABLET BY MOUTH THREE TIMES DAILY; Duration: 60 Active Morphine Sulfate ER 30 MG Tablet Extended Release 1 tablet Orally every 12 hrs; Duration: 30 days 05/21/2025 06/20/2025 Active Cilostazol 100 MG Tablet 1 tablet 30 min utes before or 2 hours after breakfast and dinner Orally Twice a day Active Atorvastatin Calcium 80 MG Tablet 1 tablet Orally Once a day Not-Taking Brilinta 90 MG Tablet 1 tablet Orally Tw ice a day Active Aspirin 81 81 MG Tablet Chewable 1 tablet Orally Once a day Not-Taking Varenicline Tartrate 1 mg Tablet TAKE ONE TABLET BY MOUTH TWICE DAILY with GLASS of water after meals; Duration: 120 Active Trulicity 1.5 MG/0.5ML Solution Auto-injector as directed Subcutaneous Weekly; Duration: 30 days Active Aspirin 81 MG Tablet Delayed Release 1 tablet Orally Once a day; Duration: 90 days Active Albuterol Sulfate HFA 108 (90 Base) MCG/ACT Aerosol Solution 1 puff as needed Inhalation every 4 hrs; Duration: 90 days Active Spiriva HandiHaler 18 MCG Capsule 1 capsule by inhaling the contents of the capsule using the HandiHaler device Inhalation Once a day; Duration: 90 days Active SMZ-TMP DS 800-160 MG Tablet 1 tablet Orally Twice a day; Duration: 30 days Active QUEtiapine Fumarate 200 mg Tablet TAKE ONE TABLET BY MOUTH EVERY NIGHT AT BEDTIME; Duration: 60 Active Pregabalin 300 MG Capsule 1 Orally BID; Duration: 30 days 03/25/2025 09/21/2025 Active Pantoprazole Sodium 40 MG Tablet Delayed Release 1 tablet Orally Once a day; Duration: 90 days Active Oxygen - Home Use 2 L NC PRN A ctive Vancomycin HCl 1.25 GM Solution Reconstituted as directed Intravenous Not-Taking oxyBUTYnin Chloride ER 10 mg Tablet Extended Release 24 Hour TAKE TWO TABLETS BY MOUTH ONCE DAILY; Duration: 30 Active BD Pen - Miscellaneous as directed Active Nitroglycerin 0.4 MG Tablet Sublingual as directed Sublingual Active Ondansetron 4 MG Tablet Disintegrating 1 tablet on the tongue and allow to dissolve Orally Once a day Not-Taking Morphine Sulfate 15 MG Tablet 1 tablet as needed Orally every 8 hrs Not-Taking metFORMIN HCl ER 500 MG Tablet Extended Release 24 Hour 1 tablet with evening meal Orally Twice a day Active Metoprolol Succinate ER 25 MG Tablet Extended Release 24 Hour 1 tablet Orally Once a day Not-Taking levETIRAcetam 500 MG Tablet 1 tablet Orally every 12 hrs Not-Taking Levemir FlexPen 100 UNIT/ML Solution as directed Subcutaneous Not-Taking Social History Tobacco Use: Social History Observation Description Date Details (start date - stop date) Former Smoker NA - NA Social History Depression Screening Social Info Question Answer Notes depression screening findings Findings Negative (0 -4) 11/08/2024 PHQ-9 Little interest or p joanie in doing things Not at all Feeling down, depressed, or hopeless Not at all Trouble falling or staying asleep, or sleeping t oo much Nearly every day Feeling tired or having little energy Not at all Poor appetite or overeating Not at all Feeling bad about yourself, or that you are a failure, or have let yourself or your family down Not at all Trouble concentrating on thi ngs, such as reading the newspaper or watching television Not at all Moving or speaking so slowly that other people could have noticed. Or the opposite ? being so fidgety or restless that you have been moving around a lot more than usual Not at all Thoughts that you would be b ashu off , or of hurting yourself in some way Not at all Total Score 3 Interpretation Minimal Depression Comprehensive Health Assessm ent Social Info Question Answer Notes *Social Determinants of Health Has lack of transportation kept you from medical appointments, meetings, work or from getting things needed for daily living? Yes it has kept me from medical appointments or from getting my medications Recently, have you worried t hat your food would run out before you got money to buy more? No Do you feel physically and emotionally safe wher e you currently live? Yes Are you worried about losing your housing? No Have you recently been patricia rned that your utilities would be turned off (electricity, gas, or water)? No Tobacco Use: Social Info Question Answer Notes Tobacco Control (Standard) Tobacco use: Former smoker How long has it been since you last smoked? 1-3 months Section Notes: Dep & Tob - 11/08/24 Dep & Tob - 11/08/24 CIME Dep & Tob - 11/08/24 CIME Dep & Tob - 11/08/24 CIME Dep & Tob - 11/08/24 CIME Dep & Tob - 11/08/24 Problems Problem Type SNOMED Code ICD Code Onset Dates Problem Status W/U Status Risk Notes Problem Mixed hyperlipidemia (465963076) Mixed hyperlipidemia (E78.2) Active confirmed Problem Chronic pain (77709760) Other chronic pain (G89.29) Active confirmed Problem Lumbar radiculopathy (683991220) Radiculopathy, lumbar region (M54.16) Active confirmed Problem Type II diabetes mellitus without complication (254646447) Type 2 diabetes mellitus without complication, unspecified whether rn long term care insulin use (E11.9) Active confirmed Problem Essential hypertension (76544336) Hypertension, unspecified type (I10) Active confirmed Problem Carpal tunnel syndrome of left wrist (964086595332445) Carpal tunnel syndrome of left wrist (G56.02) Active confirmed Problem Peripheral vascular disease (418222203) PVD (peripheral vascular disease) (I73.9) Active confirmed Problem Multi vessel coronary artery disease (760353666) CAD, multiple vessel (I25.10) Active confirmed Vital Signs Heart Rate 122 /min 05/21/2025 Temperature 97.8 degrees Fahrenheit 05/21/2025 Height-cm 167.64 cm 05/21/2025 Blood pressure diastolic 60 mm Hg 05/21/2025 Oximetry 93 % 05/21/2025 Weight-kg 95.26 kg 05/21/2025 Height 66 in 05/21/2025 Blood pressure systolic 102 mm Hg 05/21/2025 Weight 210 lbs 05/21/2025 BMI 33.89 kg/m2 05/21/2025 Encounters Encounter Location Date Provider Diagnosis [facility] [address] [address] 11/08/2024 Alonzo Shields Type 2 diabetes mellitus without complication, unspecified whether rn long term care insulin use E11.9 ; PVD (peripheral vascular disease) I73.9 ; CAD, multiple vessel I25.10 ; Mixed hyperlipidemia E78.2 ; Hypertension, unspecified type I10 and Depression screen Z13.31 [facility] [address] [address] 12/18/2024 Alonzo Shields PVD (peripheral vascular disease) I73.9 ; Hypertension, unspecified type I10 ; Type 2 diabetes mellitus without complication, unspecified whether assisted insulin use E11.9 and Depression screen Z13.31 [facility] [address] [place] [phone] 01/22/2025 Alonzo Shields Hypertension, unspecified type I10 ; PVD (peripheral vascular disease) I73.9 ; CAD, multiple vessel I25.10 ; Mixed hyperlipidemia E78.2 and Depression screen Z13.31 [facility] [address] [address] 03/25/2025 Alonzo Shields Hypertension, unspecified type I10 ; Type 2 diabetes mellitus without complication, unspecified whether assisted insulin use E11.9 ; PVD (peripheral vascular disease) I73.9 ; Carpal tunnel syndrome of left wrist G56.02 and Depression screen Z13.31 [facility] [address] [place] [phone] 04/12/2025 Alonzo Shields Depression screen Z13.31 ; Chemotherapy follow-up examination Z09 ; Hypertension, unspecified type I10 ; Type 2 diabetes mellitus without complication, unspecified whether assisted insulin use E11.9 ; CAD, multiple vessel I25.10 ; PVD (peripheral vascular disease) I73.9 ; Radiculopathy, lumbar region M54.16 and Other chronic pain G89.29 [facility] [address] [address] 05/21/2025 Alonzo Shields Encounter for Medica re annual wellness exam Z00.00 ; Hypertension, unspecified type I10 ; Type 2 diabetes mellitus without complication, unspecified whether assisted insulin use E11.9 ; Other chronic pain G89.29 and Radiculopathy, lumbar region M54.16 [facility]rated[facility]Facility 0 0 08/11/2024 Provider Migration [facility]Fac[facility] 0 0 08/12/2024 Provider Migration [facility] [address] [address] 12/11/2024 Alonzo Shields [facility] [address] [address] 12/12/2024 Alonzo Shields [facility] [address] [place] [phone] 01/24/2025 Alonzo Shields Bilateral hand numbness R20.0 [facility] [address] [address] 02/08/2025 Alonzo Shields [facility] [address] [place] [phone] 05/10/2025 Alonzo Shields Radiculopathy, lumba r region M54.16 Assessments Encounter Date Diagnosis (ICD Code) Assessment Notes Treatment Notes Treatment Clinical Notes Section Notes 11/08/2024 Type 2 diabetes mellitus without complication, unspecified whether rn long term care insulin use (ICD-10 - E11.9) 11/08/2024 PVD (peripheral vascular disease) (ICD-10 - I73.9) 12/18/2024 PVD (peripheral vascular disease) (ICD-10 - I73.9) 12/18/2024 Hypertension, unspecified type (ICD-10 - I10) 01/22/2025 Hypertension, unspecified type (ICD-10 - I10) 01/22/2025 PVD (peripheral vascular disease) (ICD-10 - I73.9) 04/12/2025 Depression screen (ICD-10 - Z13.31) 04/12/2025 Chemotherapy follow-up examination (ICD-10 - Z09) 01/24/2025 Bilateral hand numbness (ICD-10 - R20.0) 03/25/2025 Hypertension, unspecified type (ICD-10 - I10) 03/25/2025 Type 2 diabetes mellitus without complication, unspecified whether rn long term care insulin use (ICD-10 - E11.9) 05/10/2025 Radiculopathy, lumbar region (ICD-10 - M54.16) 05/21/2025 Encounter for Medicare annual wellness exam (ICD-10 - Z00.00) Please schedule your next AWV in 1 year. 05/21/2025 Hypertension, unspecified type (ICD-10 - I10) Pt advised to take meds as prescribed, exercise as tolerated, and monitor BP as directed. If symptoms develop, parameters out of range, or any distress contact clinic or utilize ER. 03/25/2025 PVD (peripheral vascular disease) (ICD-10 - I73.9) 04/12/2025 Hypertension, unspecified type (ICD-10 - I10) 01/22/2025 CAD, multiple vessel (ICD-10 - I25.10) 12/18/2024 Type 2 diabetes mellitus without complication, unspecified whether assisted insulin use (ICD-10 - E11.9) 11/08/2024 CAD, multiple vessel (ICD-10 - I25.10) 11/08/2024 Mixed hyperlipidemia (ICD-10 - E78.2) 12/18/2024 Depression screen (ICD-10 - Z13.31) 01/22/2025 Mixed hyperlipidemia (ICD-10 - E78.2) 04/12/2025 Type 2 diabetes mellitus without complication, unspecified whether assisted insulin use (ICD-10 - E11.9) 03/25/2025 Carpal tunnel syndrome of left wrist (ICD-10 - G56.02) 05/21/2025 Type 2 diabetes mellitus without complication, unspecified whether assisted insulin use (ICD-10 - E11.9) Pt advised to take medications as prescribed, follow an ADA diet, exercise as tolerated, monitor blood glucose daily as directed. If any new or worsening symptoms appear contact the clinic or any distress utilize the ER. 05/21/2025 Other chronic pain (ICD-10 - G89.29) 03/25/2025 Depression screen (ICD-10 - Z13.31) 04/12/2025 CAD, multiple vessel (ICD-10 - I25.10) 01/22/2025 Depression screen (ICD-10 - Z13.31) 11/08/2024 Hypertension, unspecified type (ICD-10 - I10) 11/08/2024 Depression screen (ICD-10 - Z13.31) 04/12/2025 PVD (peripheral vascular disease) (ICD-10 - I73.9) 05/21/2025 Radiculopathy, lumbar region (ICD-10 - M54.16) 04/12/2025 Radiculopathy, lumbar region (ICD-10 - M54.16) 04/12/2025 Other chronic pain (ICD-10 - G89.29) 05/21/2025 Other Specialty referral given: Podiatry [ ] other specialty [ ] Discussed routine foot care with patient: No [ ] Yes [ x ] Educational material given on foot care: No [ ] Yes [ x ] I am treating this patient under a comprehensive plan of care for their diabetes and today we addressed their diabetes management. Patient Educated with : Diabetes Foot Health: Care Instructions material was printed Diabetic foot exam performed: -History obtained from patient/caregiver -Physical examination completed while addressing skin breakdown, ulcer formation, and vascular perfusion (hair growth, pulses, and temperature changes) -Teaching given to patient/caregiver regarding daily foot care/examination/ footwear/health risk management. - Encouraged annual diabetic foot exams and daily self foot checks. Plan Of Treatment Next Appt Details Provider Name:Alonzo Shields, 06/26/2025 01:00:00 PM, [address], [place], [address], Insurance Providers Payer Name Payer Address Payer Phone Subscriber Number Group Number Insured Name Patient Relationship to Insured Coverage Start Date Coverage End Date [place] [address] [address] [place] [address] [id number] SELENE MENDOZA Self - patient is the insured [employer] [address] [place] [address] [id number] SELENE MENDOZA Self - patient is the insured [place] Medicaid [address] [place] [address] [id number] SELENE MENDOZA Self - patient is the insured Medical (General) History Medical History History ICD Code Heart Disease hypertension type II diabetes high cholesterol Arthritis fibromyalgia neuropathy carpal tunnel both hands Surgical History Surgery Date(Month/Year) stents x 7 toes removed carpal tunnel release stents in legs both knees toes removed L foot
[2025-06-20 16:47] LABS: Hematocrit 31.2 % (36-47); Hemoglobin 8.40 g/dL (11.27-16.99); Mean Corpuscular HGB Conc 26.9 g/dL (30-55); Mean Corpuscular Hemoglobin 19.4 pg (27-33); Mean Corpuscular Volume 72.2 fl (85-98); Nucleated Red Blood Cells % 0 %; Platelet Count 643 10^3/cmm (157-399); Red Blood Count 4.32 10^6/uL (3.85-5.65); White Blood Count 10.64 10^3/uL (3.29-11.43)
--- NOTE | 2025-06-20 17:03 | W.ED.CHESTPA ---
HPI - Chest Pain General: Chief Complaint: Chest Pain Stated Complaint: chest pain Source: patient Mode of arrival: EMS Limitations: no limitations History of Present Illness: Patient is a 60-year-old female with multiple prior visits here in the emergency department and recent hospitalization in March for acute hypoxic respiratory failure who is presenting by ambulance today for chest pain. She states on Tuesday she tripped and fell, directly onto her chest and she is having chest pain and a headache since. Chronically on 3 L of oxygen at baseline. She states the pain is substernal, she was given 324 aspirin prehospital as well as 1 sublingual nitro. Patient states that she is supposed to take 30 mg p.o. morphine during the day as well as during the night, has not taken this today as she states she is afraid of getting dizzy and falling again. She is tachycardic on arrival in the 100s, blood pressure a little soft likely secondary to the nitroglycerin she received. She has no reports of vomiting, diaphoresis, abdominal pain, or any other complaints. Primary complaint this time is diffuse pain. She reports cardiac history stating she has had multiple stents placed in previous heart attacks. Recently had nuclear medicine scan and Fixed Income Analyst procedure in March with her prior hospitalization. At that time she had prior stent dilated with excellent stent expansion noted. She is not reporting any shortness of breath. She also states that the medicines given prehospital did not help her pain at all. She notes that the pain is improved with rest, but worsened with palpation. 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 Onset (ago): day(s) (4) Timing of current episode: constant Onset: other (after a fall/chest trauma) Pain location: substernal Severity: severe Quality: heaviness Relieving factors: rest Exacerbating factors: palpation Associated symptoms: Deny abdominal pain, dyspnea, fever(s), nausea, palpitations or vomiting Treatment prior to arrival: aspirin and nitroglycerin Related Data Home Medications ?Medication ?Instructions ?Recorded ?Confirmed metformin 500 mg tablet 500 mg PO BID 07/24/24 05/14/25 furosemide 40 mg tablet 40 mg PO DAILY PRN Edema 10/25/24 05/14/25 gabapentin 300 mg capsule 300 mg PO TID 10/25/24 05/14/25 insulin glargine 100 unit/mL (3 50 unit SUBCUT BID 10/25/24 05/14/25 mL) subcutaneous pen (Lantus Solostar U-100 Insulin) oxybutynin chloride 10 mg 20 mg PO DAILY 10/25/24 05/14/25 tablet,extended release 24 hr varenicline tartrate 1 mg tablet 1 mg PO BID 10/25/24 05/14/25 dulaglutide 1.5 mg/0.5 mL 1.5 mg SUBCUT Q7D 10/27/24 05/14/25 subcutaneous pen injector (Trulicity) cilostazol 100 mg tablet 100 mg PO BID 03/29/25 05/14/25 dorzolamide 22.3 mg-timolol 6.8 1 drp ophthalmic (eye) BID 03/29/25 05/14/25 mg/mL eye drops empagliflozin 25 mg tablet 25 mg PO DAILY 03/29/25 05/14/25 (Jardiance) neomycin 3.5 mg/g-polymyxin B See Rx Instructions .Route .COMPLEX 03/29/25 05/14/25 10,000 unit/g-dexameth 0.1 % eye oint pantoprazole 40 mg tablet,delayed 40 mg PO QAM PRN Acid Reflux 03/29/25 05/14/25 release tramadol 50 mg tablet 50 - 100 mg PO Q6H PRN Pain 03/29/25 05/14/25 Held on 04/04/25. Instructions: Resume on 04/11/25. hold until seen by PCP Previous Rx's ?Medication ?Instructions ?Recorded blood sugar diagnostic (Blood #50 ea 08/10/23 Glucose Test strips) lancets #100 ea 11/28/23 albuterol sulfate 90 mcg/actuation 2 puff inhalation Q6H PRN 01/10/24 aerosol inhaler shortness of breath or wheezing #8.5 grams blood sugar diagnostic (Blood #100 ea 01/10/24 Glucose Test strips) blood-glucose meter #1 ea 01/10/24 aspirin 81 mg tablet,delayed 81 mg PO QAM #30 tabs 03/20/24 release cyclobenzaprine 10 mg tablet 10 mg PO TID PRN Muscle Spasm #90 04/16/24 tabs duloxetine 60 mg capsule,delayed 60 mg PO DAILY #30 caps 04/16/24 release epinephrine 0.3 mg/0.3 mL 0.3 mg (0.3 mL) IM Q4H PRN 04/16/24 injection, auto-injector (EpiPen anaphylaxis #2 ea 2-Pankaj) pen needle, diabetic 31 gauge x #100 ea 04/16/2403/01 (Comfort EZ Pen [place]) pen needle, diabetic 32 gauge x #100 ea 04/16/24 (Comfort EZ Pen [place]) quetiapine 200 mg tablet 200 mg PO BEDTIME #30 tabs 04/16/24 Wheel chair #1 ea 07/19/24 Diabetic shoes with 3 sets of #1 ea 08/09/24 insoles and toe filler to right ticagrelor 90 mg tablet (Brilinta) 90 mg PO BID #180 tabs 03/06/25 atorvastatin 40 mg tablet (Lipitor) 40 mg PO QPM #30 tabs 04/04/25 buprenorphine 2 mg-naloxone 0.5 mg 1 tab sublingual BID PRN Pain, 04/04/25 sublingual tablet Moderate #6 tabs lidocaine 5 % topical patch 1 patch topical DAILY PRN pain #15 04/04/25 ea metoprolol tartrate 25 mg tablet 25 mg PO BID@0900,2100 #60 tabs 04/04/25 nitroglycerin 0.4 mg sublingual 0.4 mg sublingual Q5M PRN Chest 04/15/25 tablet (Nitrostat) Pain #30 tabs ezetimibe 10 mg tablet See Rx Instructions .Route 05/03/25 .COMPLEX #90 tabs losartan 50 mg tablet See Rx Instructions .Route 05/03/25 .COMPLEX #90 tabs mupirocin calcium 2 % topical cream 1 applic topical BID #15 grams 05/14/25 Allergies Allergy/AdvReac Type Severity Reaction Status Date / Time doxycycline Allergy Mild ADR-Photose Verified 05/14/25 08:32 nsitivity fentanyl Allergy Unknown ALGY-Difficulty Verified 05/14/25 08:32 Breathing adhesive Allergy Unknown Verified 05/14/25 08:32 codeine Allergy Unknown Verified 05/14/25 08:32 hydrocodone Allergy ADR-Itching Verified 05/14/25 08:32 latex Allergy ALGY-Swell Verified 05/14/25 08:32 Lip/Tongue/Throat naproxen (From Naprosyn) Allergy Unknown Verified 05/14/25 08:32 nut - unspecified Allergy ALGY-Anaphy Verified 05/14/25 08:32 laxis Penicillins Allergy Unknown Verified 05/14/25 08:32 tramadol Allergy ADR-Itching Verified 05/14/25 08:32 Review of Systems General: Reports: 10 or more systems reviewed and unremarkable except in HPI and below Const: Denies: fever(s), chills or fatigue Eyes: Denies: change in vision ENMT: Denies: throat pain, ear or mastoid pain or nasal discharge Card: Reports: chest pain; Denies: palpitations, swelling of feet/ankles or lightheadedness Resp: Denies: dyspnea, productive cough or wheezing GI: Denies: abdominal pain, nausea, vomiting, diarrhea or constipation : Denies: flank pain, difficulty voiding, dysuria or urinary frequency Musc: Denies: neck pain, back pain or joint pain Skin/Breast: Denies: rash Neuro: Reports: headache(s); Denies: numbness in extremities or weakness in extremities PFSH ED PFSH: Medical History Moderate aortic stenosis NSTEMI (non-ST elevated myocardial infarction) Chronic migraine without aura, intractable, with status migrainosus Hemiparesis affecting right side as late effect of cerebrovascular accident Generalized epilepsy Equinus contracture of left ankle Amputated toe of left foot Amputated toe of right foot Septic arthritis suspected Osteomyelitis of ankle or foot, right, acute Acute osteomyelitis of right foot Acute respiratory failure with hypoxia PAD (peripheral artery disease) Hammertoe of left foot Thrombocytosis, unspecified Diabetes Cellulitis Essential hypertension Depression Anemia 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 COPD (chronic obstructive pulmonary disease) Hypersensitivity pneumonitis Rheumatoid arthritis Infection of total left knee replacement Right wrist deformity History of stroke Acute exacerbation of chronic obstructive pulmonary disease (COPD) Acute encephalopathy Acute alteration in mental status Sepsis Sacral pressure ulcer Cellulitis of gluteal region Seizure disorder Hypoxemia Seizure UTI (urinary tract infection) Chronic, continuous use of opioids Seizures Acute and chronic respiratory failure with hypoxia Pneumonia Pneumonia Acute hypoxemic respiratory failure Stenosis of left internal carotid artery with cerebral infarction Diabetic foot ulcer Right arm weakness Hoarseness of voice Sepsis Numbness and tingling in both hands Urinary tract infection Chest pain Syncope Needs flu shot Carpal tunnel syndrome, right Urinary incontinence Chronic knee pain Abnormal stress test CAD (coronary artery disease) Acute exacerbation of CHF (congestive heart failure) Unstable angina COPD exacerbation Exposure to COVID-19 virus Compression fracture of L2 lumbar vertebra Right hip pain Dyspnea (HFpEF) heart failure with preserved ejection fraction Candidiasis of vagina History of CVA (cerebrovascular accident) Elevated troponin Pericardial effusion Pressure ulcer Prosthetic joint infection Septic arthritis of knee, left Osteoarthritis of left knee History of hypoglycemic coma Obesity (BMI 35.0-39.9 without comorbidity) Peripheral sensory neuropathy due to type 2 diabetes mellitus Coronary artery disease due to type 2 diabetes mellitus Diabetes type 2, uncontrolled Neuropathy Insomnia Fibromyalgia, primary Hyperlipidemia, mixed CVA (cerebral vascular accident) Dyslipidemia Leukocytosis Chronic obstructive pulmonary disease, unspecified Vitamin D deficiency Type 2 diabetes mellitus with diabetic autonomic (poly)neuropathy Essential hypertension Encounter for long-term opiate analgesic use Opioid contract exists Current every day smoker Chronic pain of left knee Low back pain radiating to both legs Intervertebral disc disorder of lumbar region with myelopathy Lumbosacral spondylosis without myelopathy Osteoarthritis of spine at multiple levels Chronic left-sided low back pain Surgical History History of amputation of great toe of both feet Status post left knee replacement History of coronary angiogram Angiogram April 2020 with 90% circumflex lesion, drug-eluting stent placed by Dr. Jerome Status post lumbar laminectomy S/P lumbar fusion DR. Shreya ZAYAS IN [place], [place] L4-L5, L5-S1 S/p bilateral carpal tunnel release History of arthroscopic surgery of elbow BILATERAL S/P hysterectomy S/P knee surgery RIGHT Family History Other CAD (coronary artery disease) Cancer Diabetes Social History Smoking and tobacco/nicotine status: current every day tobacco/nicotine user (vaping) cigarettes Packs smoked per day: 0.5 Years cigarettes smoked: 10 [ Other cigarette details: PER PATIENT REPORT] Alcohol intake: former Substance/Drug Use: never Caregiver/support person: Yes Lives independently: No Housing: Intermediate Marital status: Unknown Marital status details: She and son state she is not service: No Current occupational status: unemployed Pets and animals: Yes Do you think of yourself as: Straight/Heterosexual Current gender identity: Female Physical Exam Const: COMMON NORMALS: no limitations and alert GENERAL APPEARANCE: cooperative and ill appearing NUTRITIONAL APPEARANCE: obese ORIENTATION/CONSCIOUSNESS: Yes awake HENMT: COMMON NORMALS: normocephalic and atraumatic HEAD & SCALP: normocephalic and atraumatic Eye: COMMON NORMALS: Equal, round and reactive pupils present and EOMs intact bilaterally PUPIL: Yes Equal, round and reactive pupils present Neck/C-Spine: COMMON NORMALS: full ROM and no JVD Chest: OTHER: Old ecchymosis noted to patient's chest Resp: COMMON NORMALS: normal respiratory effort, No retractions, No use of accessory muscles and clear to auscultation bilaterally AUSCULTATION: clear to auscultation bilaterally Cardio: COMMON NORMALS: no JVD, regular rhythm, No gallops present (Cardio), No clicks present (Cardio), No murmurs present (Cardio) and No rub (Cardio) RATE: tachycardic RHYTHM: regular rhythm GI: COMMON NORMALS: Soft to palpation and non-tender PALPATION: Yes Soft to palpation Extremity: COMMON NORMALS: full ROM and capillary refill normal NARRATIVE EXTREMITY EXAM: Previous amputation to digits of bilateral feet. Postoperative scars to bilateral knees. Trace edema bilateral. Neuro: COMMON NORMALS: moves all extremities, no focal motor deficits and no sensory deficits noted SENSORIUM/ORIENTATION: Yes alert Course Vital Signs: Vital signs: Vital Signs Temperature 98.5 F 06/20/25 16:20 Pulse Rate 80 06/20/25 20:39 Respiratory Rate 13 06/20/25 20:39 Blood Pressure 143/71 06/20/25 20:39 Pulse Oximetry 98 06/20/25 20:39 Oxygen Delivery Me thod Nasal Cannula 06/20/25 19:30 Oxygen Flow Rate 3 06/20/25 19:30 MDM - Chest Pain Medical Decision Making This patient presented by ambulance for complaints of chest wall pain after falling on Tuesday, stating that she struck her chest. This has been constant since, she is also reporting diffuse pain in general and a headache. She states that these myalgias are likely from her not taking her morphine today, states that she was scared of it making her dizzy and falling again like she did on Tuesday. Chronically ill-appearing, she was also tachycardic on arrival but this was improved throughout her ED stay with IV fluids likely indicating some form of dehydration or hypovolemia. Pressure was also soft, thought initially this was from nitroglycerin that she was given prehospital, of note the nitroglycerin and aspirin did not help her pain at all. She was recently here in the hospital for hypoxic respiratory failure where she did undergo cardiac cath, this was reviewed. Her delta troponin was negative. Rest of her labs ultimately unremarkable aside from mild elevation in her D-dimer in which CTA was ordered and negative for PE. No other abnormalities by chest x-ray or CTA that would explain her pain, there was ecchymosis noted from the fall and I do suspect that her pain is from the fall and likely myalgias. Pressure brought back up here in the ED and she was given morphine, in which notably this did improve her symptoms and was sleeping multiple times on recheck. I do not expect ACS as a cause of her symptoms, she has chronically been on her 3 L of oxygen and oxygenating well, ultimately informed to continue taking her pain medications at home and return with any new or worsening and follow-up with primary care. Lab Data 06/20/25 16:42 06/20/25 16:42 Radiology Impressions Chest X-Ray 06/20/25 16:31 IMPRESSION: Markedly decreased bilateral central lung predominant pulmonary opacity since 03/29/2025. Findings suggest resolving infection or edema. Chest CTA 06/20/25 17:34 IMPRESSION: 1. No pulmonary embolism. 2. Mild residual central lung predominant ground-glass opacity, markedly decreased since 03/29/2025. Bilateral pulmonary consolidation has resolved. Possible resolving infection, pulmonary edema, or acute lung injury. 3. Mediastinal and bilateral hilar lymphadenopathy is decreased since 03/29/2025. 4. Bilateral lower lung nodules measuring up to 5 mm. Some of the nodules were previously obscured and some larger nodules were present previously which are no longer visible. Nodules are likely inflammatory. For patients at low risk (minimal or absent history of smoking and of other known risk factors), no routine follow-up is indicated. For patients at high risk (history of smoking or of other known risk factors), consider optional CT Chest at 12 months. (Reference: Logan) REFERENCES: Logan Dennis et al. Guidelines for Management of Incidental Pulmonary Nodules Detected on CT Images: From the Fleischner Society 2017. Radiology. 2017;284(1):228-243. Laboratory Results WBC 10.64 10^3/uL (3.29-11.43) 06/20/25 16:42 RBC 4.32 10^6/uL (3.85-5.65) 06/20/25 16:42 Hgb 8.40 g/dL (11.27-16.99) L 06/20/25 16:42 Hct 31.2 % (36-47) L 06/20/25 16:42 MCV 72.2 fl (85-98) L 06/20/25 16:42 MCH 19.4 pg (27-33) L 06/20/25 16:42 MCHC 26.9 g/dL (30-55) L 06/20/25 16:42 RDW 18.1 % (12.1-15.1) H 06/20/25 16:42 Plt Count 643 10^3/cmm (157-399) H 06/20/25 16:42 MPV 9.2 fL (7.4-10.4) 06/20/25 16:42 Neut % (Auto) 51.9 % 06/20/25 16:42 Lymph % (Auto) 35.7 % 06/20/25 16:42 [place] % (Auto) 5.0 % 06/20/25 16:42 Eos % (Auto) 5.5 % 06/20/25 16:42 Baso % (Auto) 1.2 % 06/20/25 16:42 Neut # (Auto) 5.52 10^3/uL (1.8-7.7) 06/20/25 16:42 Lymph # (Auto) 3.8 10^3/uL (0.8-4.8) 06/20/25 16:42 [place] # (Auto) 0.5 10^3/uL (0.2-0.9) 06/20/25 16:42 Eos # (Auto) 0.6 10^3/uL (0.0-0.8) 06/20/25 16:42 Baso # (Auto) 0.1 10^3/uL (0.0-0.1) 06/20/25 16:42 Nucleated RBC % (auto) 0 % 06/20/25 16:42 Nucleated RBCs # 0.0 /100WBC 06/20/25 16:42 PT 13.70 SECONDS (12.1-14.9) 06/20/25 16:42 INR 0.98 (0.8-1.2) 06/20/25 16:42 APTT 34.0 SECONDS (23.9-36.7) 06/20/25 16:42 D-Dimer 0.76 ug/mLFEU (0-0.59) H 06/20/25 16:42 Sodium 140 mmol/L (136-145) 06/20/25 16:42 Potassium 4.0 mmol/L (3.5-5.1) 06/20/25 16:42 Chloride 104 mmol/L (98-107) 06/20/25 16:42 Carbon Dioxide 18 mmol/L (22-29) L 06/20/25 16:42 Anion Gap 22.0 (5-19) H 06/20/25 16:42 BUN 19 mg/dL (6-20) 06/20/25 16:42 Creatinine 1.1 mg/dL (0.5-0.9) H 06/20/25 16:42 GFR Calculation 51.0 mL/min (90-130) L 06/20/25 16:42 Glucose 196 mg/dL (65-115) H 06/20/25 16:42 Calculated Osmolality 298 mOsm/kg (285-295) H 06/20/25 16:42 Calcium 9.2 mg/dL (8.5-10.5) 06/20/25 16:42 Total Bilirubin 0.2 mg/dL (0.15-1.2) 06/20/25 16:42 AST 15 U/L (0-32) 06/20/25 16:42 ALT 12 U/L (0-33) 06/20/25 16:42 Alkaline Phosphatase 81 U/L (35-105) 06/20/25 16:42 Troponin T Baseline 35 ng/L (0-10) H 06/20/25 16:42 Troponin T 120 Minute 38.15 ng/L (0-10) H 06/20/25 18:40 Delta Troponin T 3.15 ABS# (0-10) 06/20/25 18:40 NT-Pro-B Natriuret Pep 357 pg/mL (0-125) H 06/20/25 16:42 Total Protein 7.1 g/dL (6.6-8.7) 06/20/25 16:42 Albumin 3.6 g/dL (3.5-5.2) 06/20/25 16:42 Globulin 3.5 g/dL (1.3-4.6) 06/20/25 16:42 All radiology interpretation(s) finalized by discharge Discharge Plan Discharge Patient Disposition: Home Clinical Impression: Fall, Acute chest wall pain, Dehydration Condition: Stable Prescriptions: No Action (DME) Blood Glucose Test Strip See Rx Instructions .Route Qty: 100 0RF Rx Instructions: tid ac meals albuterol sulfate 90 mcg/actuation HFA aerosol inhaler 2 puff inhalation Q6H PRN (Reason: shortness of breath or wheezing) Qty: 8.5 3RF (DME) blood-glucose meter Misc See Rx Instructions .Route Qty: 1 0RF Rx Instructions: dailyAs directed cyclobenzaprine 10 mg tablet 10 mg PO TID PRN (Reason: Muscle Spasm) Qty: 90 3RF duloxetine 60 mg capsule,delayed release(DR/EC) 60 mg PO DAILY Qty: 30 4RF (DME) pen needle, diabetic [Comfort EZ Pen [place]] 32 gauge x 5/32 needle See Rx Instructions .Route Qty: 100 2RF Rx Instructions: use 3times a day to inject insulin. (DME) pen needle, diabetic [Comfort EZ Pen [place]] 31 gauge x 5/16 needle See Rx Instructions .Route Qty: 100 6RF Rx Instructions: use daily with levemir quetiapine 200 mg tablet 200 mg PO BEDTIME Qty: 30 4RF epinephrine [EpiPen 2-Pankaj] 0.3 mg/0.3 mL auto-injector 0.3 mg IM Q4H PRN (Reason: anaphylaxis) Qty: 2 0RF ticagrelor [Brilinta] 90 mg tablet 90 mg PO BID Qty: 180 3RF nitroglycerin [Nitrostat] 0.4 mg tablet, sublingual 0.4 mg SUBLINGUAL Q5M PRN (Reason: Chest Pain) Qty: 30 4RF Rx Instructions: do not exceed 3 doses per episode (DME) Blood Glucose Test Strip See Rx Instructions .Route Qty: 50 3RF Rx Instructions: As directed accucheck test strips for accu check machine oxybutynin chloride 10 mg tablet extended release 24hr 20 mg PO DAILY gabapentin 300 mg capsule 300 mg PO TID varenicline tartrate 1 mg tablet 1 mg PO BID insulin glargine [Lantus Solostar U-100 Insulin] 100 unit/mL (3 mL) insulin pen 50 unit SUBCUT BID furosemide 40 mg tablet 40 mg PO DAILY PRN (Reason: Edema) (DME) Wheel chair See Rx Instructions .Route .MEDSUPPLY Qty: 1 0RF Rx Instructions: As directed (DME) Diabetic shoes with 3 sets of insoles and toe filler to right See Rx Instructions .Route .MEDSUPPLY Qty: 1 0RF Rx Instructions: As directed mupirocin calcium 2 % cream 1 applic topical BID Qty: 15 0RF (DME) lancets Misc See Rx Instructions .Route Qty: 100 0RF Rx Instructions: 1 tid aspirin 81 mg tablet,delayed release (DR/EC) 81 mg PO QAM Qty: 30 4RF ezetimibe 10 mg tablet See Rx Instructions .ROUTE .COMPLEX Qty: 90 4RF Dose Instruction: TAKE 1 TABLET BY MOUTH DAILY Rx Instructions: TAKE 1 TABLET BY MOUTH DAILY losartan 50 mg tablet See Rx Instructions .ROUTE .COMPLEX Qty: 90 3RF Dose Instruction: TAKE 1 TABLET BY MOUTH DAILY at 8 am Rx Instructions: TAKE 1 TABLET BY MOUTH DAILY at 8 am metformin 500 mg tablet 500 mg PO BID Trulicity 1.5 mg/0.5 mL pen injector 1.5 mg SUBCUT Q7D Rx Instructions: Tuesday pantoprazole 40 mg tablet,delayed release (DR/EC) 40 mg PO QAM PRN (Reason: Acid Reflux) Jardiance 25 mg tablet 25 mg PO DAILY cilostazol 100 mg tablet 100 mg PO BID tramadol 50 mg tablet 50 - 100 mg PO Q6H PRN (Reason: Pain) dorzolamide-timolol 22.3-6.8 mg/mL drops 1 drp ophthalmic (eye) BID neomycin-polymyxin B-dexameth 3.5 mg/g-10,000 unit/g-0.1 % ointment See Rx Instructions .ROUTE .COMPLEX Rx Instructions: APPLY SMALL AMOUNT IN RIGHT EYE EVERY NIGHT. metoprolol tartrate 25 mg Tablet 25 mg PO BID@0900,2100 Qty: 60 0RF buprenorphine-naloxone 2-0.5 mg tablet, sublingual 1 tab sublingual BID PRN (Reason: Pain, Moderate) Qty: 6 0RF Rx Instructions: DISSOLVE 1 tablet UNDER THE TONGUE two TIMES DAILY NEEDED. atorvastatin [Lipitor] 40 mg tablet 40 mg PO QPM Qty: 30 0RF lidocaine 5 % adhesive patch,medicated 1 patch topical DAILY PRN (Reason: pain) Qty: 15 0RF Rx Instructions: 1 patch topically; Discharge Orders: Discharge ED (Routine); Ordered 06/20/25 Ordered By: Rehan Ozuna Referrals: Javier Shields MD [Primary Care Provider, Internal Medicine] Patient Instructions: Patient Portal & Carlos Instructions Activity Restrictions/Additional Instructions: Chest Pain Discharge Instructions Discharge Instructions for Chest Pain After Blunt Chest Trauma Summary of ED Course and Risk Stratification: - 60-year-old female presented with chest pain after a fall onto her chest. - Initial hypotension and tachycardia resolved with IV fluids; likely related to nitroglycerin use. - Serial ECGs and delta troponin negative for myocardial injury. - Chest X-ray and CT chest with contrast unremarkable; no evidence of pneumothorax, hemothorax, or acute bony injury. - Pain improved with morphine; patient on chronic oral morphine (30 mg BID). - Oxygen saturation stable at baseline (3 L/min via nasal cannula). Disposition Rationale: - The [employer] and [employer] recommend discharge for patients with chest pain who are clinically stable, have nonischemic ECGs, and negative serial troponins, as their risk of 30-day major adverse cardiac events is <1%. - Imaging excluded traumatic pneumothorax, hemothorax, and other acute thoracic injuries. - No evidence of ACS, aortic syndrome, pulmonary embolism, or other life-threatening etiologies. Medication Instructions: - Continue home oral morphine regimen (30 mg twice daily) for pain control. Monitor for excessive sedation, respiratory depression, or opioid-induced hyperalgesia. - Avoid rapid dose escalation; if pain worsens or adverse effects develop, contact primary care provider for reassessment. - Continue home oxygen at 3 L/min via nasal cannula as previously prescribed. Maintain SpO? >=94% per trauma and pulmonary guidelines. Activity and Self-Care: - Gradually resume activities as tolerated. Avoid heavy lifting or strenuous exertion for at least 1 week. - Use incentive spirometry and deep breathing exercises to reduce risk of atelectasis and pulmonary complications. - Monitor for increased pain, swelling, or bruising at the chest wall. Follow-Up: - Schedule follow-up with primary care provider within 7 days for reassessment and medication management, per ACC recommendations for intermediate-risk chest pain and trauma follow-up. - If new or persistent chest pain, dyspnea, or other symptoms develop, consider outpatient imaging or cardiology referral as indicated. Strict Return Precautions: Return to the Emergency Department immediately for any of the following: - New or worsening chest pain, especially if severe, pressure-like, or radiating. - Shortness of breath at rest or with minimal activity. - Lightheadedness, syncope, or palpitations. - New or worsening hypoxemia (SpO? < 90% despite supplemental oxygen). - Signs of infection: fever, chills, purulent sputum. - Hemoptysis or new cough. - Rapidly increasing pain, swelling, or deformity of the chest wall. - Any confusion, excessive sedation, or difficulty arousing (may indicate opioid toxicity). - Any other concerning symptoms. Additional Considerations: - If pain control is inadequate or adverse effects from morphine occur (e.g., constipation, nausea, excessive sedation), consider dose reduction, opioid rotation, or addition of non-opioid analgesics in consultation with the primary care provider. - Monitor for pleural space complications (e.g., delayed pneumothorax, effusion), which may present within 1-2 weeks post-injury, especially in older adults and those with abnormal chest imaging. Contact Information: - For non-urgent questions, contact primary care provider. - For urgent symptoms, return to the Emergency Department. Patient Education: - Most chest pain after trauma is musculoskeletal and resolves with time and supportive care. - Serious complications are rare but can develop after discharge; strict adherence to return precautions is essential. Reviewed and discussed with patient prior to discharge. Print Language: Somali Coding Level of Care Code ED Associate Director Finance for Nahed Alcazar
[2025-06-20 17:08] LABS: INR 0.98 (0.8-1.2); Partial Thromboplastin Time 34.0 SECONDS (23.9-36.7); Prothrombin Time 13.70 SECONDS (12.1-14.9)
[2025-06-20 17:14] LABS: Troponin(5th) Baseline 35 ng/L (0-10)
--- NOTE | 2025-06-20 17:34 | CTR_ITS ---
PROCEDURE INFORMATION: Exam: CTA Chest With Contrast Exam date and time: 06/20/2025 5:43 PM Age: 60 years old Clinical indication: Pain and abnormal findings; Abnormal diagnostic tests; Elevated d-dimer; Sternal or substernal pain; Prior surgery; Surgery date: 1-6 months; Surgery type: Coronary stent; C/O substernal chest pain with tachycardia. Dimer 0.76. ; Additional info: Cp, tachy, elevated dimer TECHNIQUE: Imaging protocol: Computed tomographic angiography of the chest with contrast. Exam focused on the arteries. 3D rendering (Not supervised by radiologist): MIP and/or 3D reconstructed images were created by the technologist. Radiation optimization: All CT scans at this facility use at least one of these dose optimization techniques: automated exposure control; mA and/or kV adjustment per patient size (includes targeted exams where dose is matched to clinical indication); or iterative reconstruction. Contrast material: OMNI 350; Contrast volume: 70 ml; Contrast route: INTRAVENOUS (IV); COMPARISON: CT angio chest PE protcl [id number] 03/29/2025 11:03 AM RADIATION DOSE METRICS: Total DLP (mGy-cm): 442.45 FINDINGS: Pulmonary arteries: The pulmonary arteries are adequately opacified for evaluation to the subsegmental level. There is no filling defect to suggest embolism. Aorta: There is mild aortic atherosclerotic disease. Lungs: There is a benign calcified granuloma in the left lower lobe. Mild scarring and atelectasis in the left lung base. Multiple 3-5 mm noncalcified irregular pulmonary nodules in both lower lobes, for example on axial series 5, image 33. There is mild bilateral central lung predominant ground-glass opacity which is decreased since 03/29/2025. Previously visible perihilar consolidation has resolved. Pleural spaces: There is no pleural effusion or pneumothorax. Heart: Heart size is normal. There is no pericardial effusion. Coronary arteries: There is severe coronary artery calcification. Lymph nodes: Mildly diffusely enlarged mediastinal and bilateral hilar lymph nodes. Right upper paratracheal lymph node measures 15 mm short axis. Right hilar lymph node measures 16 mm short axis on axial series 7, image 157. A left hilar lymph node measures 10 mm short axis on axial series 7, image 163. There are calcified left hilar lymph nodes. Intraperitoneal space: Visible structures in the upper abdomen are unremarkable. Bones/joints: Bones are unremarkable. Soft tissues: The extrathoracic soft tissues are unremarkable. CT/CT angio chest PE protcl [id number] IMPRESSION: 1. No pulmonary embolism. 2. Mild residual central lung predominant ground-glass opacity, markedly decreased since 03/29/2025. Bilateral pulmonary consolidation has resolved. Possible resolving infection, pulmonary edema, or acute lung injury. 3. Mediastinal and bilateral hilar lymphadenopathy is decreased since 03/29/2025. 4. Bilateral lower lung nodules measuring up to 5 mm. Some of the nodules were previously obscured and some larger nodules were present previously which are no longer visible. Nodules are likely inflammatory. For patients at low risk (minimal or absent history of smoking and of other known risk factors), no routine follow-up is indicated. For patients at high risk (history of smoking or of other known risk factors), consider optional CT Chest at 12 months. (Reference: [place]) REFERENCES: Lgoan H, et al. Guidelines for Management of Incidental Pulmonary Nodules Detected on CT Images: From the Fleischner Society 2017. Radiology. 2017;284(1):228-243.
[2025-06-20] MEDS: iohexol 350 mg/mL 500 mL Btl (per mL) IV (17:51)
[2025-06-20 18:13] LABS: Alanine Aminotransferase 12 U/L (0-33); Albumin Level 3.6 g/dL (3.5-5.2); Alkaline Phosphatase 81 U/L (35-105); Anion Gap 22.0 (5-19); Aspartate Amino Transferase 15 U/L (0-32); Blood Urea Nitrogen 19 mg/dL (6-20); Calcium 9.2 mg/dL (8.5-10.5); Carbon Dioxide 18 mmol/L (22-29); Chloride 104 mmol/L (98-107); Creatinine Clr Calc Pharmacy 64.8435; Globulin 3.5 g/dL (1.3-4.6); Glucose 196 mg/dL (65-115); NT Pro B Type Natriuretic Pept 357 pg/mL (0-125); Osmolality Calculated 298 mOsm/kg (285-295); Potassium 4.0 mmol/L (3.5-5.1); Sodium 140 mmol/L (136-145); Total Protein 7.1 g/dL (6.6-8.7)
--- NOTE | 2025-06-20 18:31 | ECG_ITS ---
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 Measurements Intervals [place] Rate: 88 P: -16 [place]: 178 QRS: 24 QRSD: 100 T: 66 QT: 383 QTc: 466 Interpretive Statements SINUS RHYTHM NONSPECIFIC ST & T-WAVE ABNORMALITY Compared to ECG 06/20/2025 16:23:59 Sinus tachycardia no longer present T-wave abnormality still present Electronically Signed On 06-21-2025 09:27:40 CDT by Troy Joyce M.D. [id number]
[2025-06-20 19:01] LABS: Troponin 5 2HR 38.15 ng/L (0-10); Troponin 5 2HR Delta 3.15 ABS# (0-10)
[2025-06-20] MEDS: morphine 4 mg/mL SDV 1 mL IVP (19:13)
== END 2025-06-20 20:39 | disposition home or self-care (01) ==
PROVIDERS: Emergency Provider Physician Assistant; PCP Internal Medicine
DX: R07.89 Other chest pain (principal); E86.0 Dehydration; Z79.4 Long term (current) use of insulin; Z79.82 Long term (current) use of aspirin; Z79.84 Long term (current) use of oral hypoglycemic drugs; Z79.85 Long-term (current) use of injectable non-insulin antidiabetic drugs; F17.210 Nicotine dependence, cigarettes, uncomplicated; E78.2 Mixed hyperlipidemia; Z86.73 Personal history of transient ischemic attack (TIA), and cerebral infarction without residual deficits; J44.9 Chronic obstructive pulmonary disease, unspecified; I25.10 Atherosclerotic heart disease of native coronary artery without angina pectoris; I11.0 Hypertensive heart disease with heart failure; I50.30 Unspecified diastolic (congestive) heart failure; E11.9 Type 2 diabetes mellitus without complications
CPT/HCPCS: 36415; 71045; 71275; 80053; 83880; 84484; 85025; 85378; 85610; 85730; 93005; 96361; 96374; 99285; J2270; J7040

== ENCOUNTER 2025-09-02 15:32 | Observation (INO) | payer MEDICARE, MEDICAID, SELFPAY ==
[2025-09-02] VITALS (8 sets, daily range): BP systolic 111–167; BP diastolic 48–125; PULSE 101–112; RESP 15–20; TEMP 36.4–36.6; O2SAT 92–95; BMI 33.3
--- NOTE | 2025-09-02 15:38 | XRR_ITS ---
PROCEDURE INFORMATION: Exam: XR Chest Exam date and time: 09/02/2025 5:01 PM Age: 60 years old Clinical indication: Pain; Chest pressure; Prior surgery; Surgery date: 6+ months; Surgery type: Coronary stents; Additional info: Chest pain TECHNIQUE: Imaging protocol: Radiologic exam of the chest. Views: 1 view. COMPARISON: CT angio chest PE protcl [id number] 06/20/2025 5:43 PM FINDINGS: Lungs: Mild interstitial prominence suggestive of edema. Slight central vascular congestion may be present. Low lung volumes. Minimal bibasilar opacities, subsegmental atelectasis versus very mild infiltrate. Pleural spaces: Trace right pleural fluid not excluded. No pneumothorax. Heart/Mediastinum: Heart size normal. Bones/joints: No acute osseous findings. XR/XR chest 1V portable [id number] IMPRESSION: Low lung volumes with probable central vascular congestion and interstitial edema. Mild bibasilar opacities could represent atelectasis or trace infiltrate.
--- NOTE | 2025-09-02 15:40 | ECG_ITS ---
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 Measurements Intervals [place] Rate: 109 P: 42 [place]: 189 QRS: 10 QRSD: 89 T: 128 QT: 330 QTc: 445 Interpretive Statements SINUS TACHYCARDIA WITH OCCASIONAL VENTRICULAR PREMATURE COMPLEXES POSSIBLE ANTERIOR MYOCARDIAL INFARCTION , PROBABLY OLD [30 ms Q WAVE IN V3/V4, OR R < 0.2 mV IN V4] MODERATE T-WAVE ABNORMALITY, CONSIDER LATERAL ISCHEMIA [-0.1+ mV T-WAVE IN I/aVL/V5/V6] Compared to ECG 06/20/2025 18:22:19 Ventricular premature complex(es) now present Myocardial infarct finding now present Possible ischemia now present Sinus rhythm no longer present T-wave abnormality still present Electronically Signed On 09-04-2025 09:47:27 POKER IN by Troy Joyce M.D. [id number]
[2025-09-02 16:05] LABS: Hematocrit 32.1 % (36-47); Hemoglobin 9.20 g/dL (11.27-16.99); Mean Corpuscular HGB Conc 28.7 g/dL (30-55); Mean Corpuscular Hemoglobin 17.8 pg (27-33); Mean Corpuscular Volume 62.1 fl (85-98); Nucleated Red Blood Cells % 0 %; Platelet Count 666 10^3/cmm (157-399); Red Blood Count 5.17 10^6/uL (3.85-5.65); White Blood Count 13.39 10^3/uL (3.29-11.43)
[2025-09-02 16:17] LABS: INR 0.83 (0.8-1.2); Prothrombin Time 12.00 SECONDS (12.1-14.9)
[2025-09-02 16:23] LABS: Troponin(5th) Baseline 26 ng/L (0-10)
--- NOTE | 2025-09-02 16:48 | ED_ITS ---
Documented by User: JN Dickerson 09/02/25 18:33 HPI - Chest Pain 2 General: Chief Complaint: Chest Pain Stated Complaint: chest pain - chronic leg/back pain Time Seen by Provider: 09/02/25 16:48 Source: patient Mode of arrival: wheelchair Limitations: no limitations History of Present Illness: Patient is a 60-year-old female with an extensive past medical history including COPD requiring oxygen at night, coronary artery disease with multiple cardiac stents, congestive heart failure, peripheral arterial disease, hyperlipidemia, hypertension, diabetes, fibromyalgia, rheumatoid arthritis, chronic opioid use, among others (patient has close to 90 conditions listed on her PMH in her chart- some of these are redundant) here for complaint of chest pain as well as pain related to her rheumatoid arthritis and fibromyalgia. She states she is out of her oral morphine. She was getting this through her PCP Dr. Shields but states she has recently moved and now trying to get into a clinic at [facility] they are awaiting records. She states her chest pain has been present over the past 2 weeks. She states pain is usually alleviated at rest but states if I get up and move around then it seems to bring on her discomfort. Patient was admitted here back in March and had echocardiogram/stress test performed. Her stress test was abnormal thus prompting cardiac catheterization. She was found to have restenosis of her RCA stent that was treated with balloon angioplasty. Patient states she has been compliant with her medications. Results of her echocardiogram are listed below: CONCLUSIONS Normal left ventricular size and systolic function, EF 60%. .Mild to moderate concentric left ventricular hypertrophy. Mild hypokinesia of the basal inferior wall segment.Grade I/IV diastolic dysfunction (abnormal relaxation filling pattern), normal to mildly elevated filling pressures. Mildly increased left atrial size. Moderate mitral valve regurgitation. Moderate aortic valve stenosis, mean gradient 16.1 mmHg, MICHAEL 1.2 cm squared. Peak velocity of 2.7 m/s with a peak gradient of 29 mmHg. Trace to mild tricuspid valve regurgitation. Estimated pulmonary artery peak systolic pressure 45 mmHg Trace pulmonary valve regurgitation. There is no pericardial effusion. There are no intracardiac masses. Compared to the study from 09/13/2021, there is development of aortic valve stenosis MD complaint: chest pain Pertinent past history: coronary artery disease Onset (ago): week(s) (2 weeks) Timing of current episode: episodic Prior episodes: Yes Onset: during exertion Pain location: substernal Pain radiation: none Severity: moderate Quality: tightness Relieving factors: rest Exacerbating factors: exertion Associated symptoms: Reports no associated symptoms, dyspnea (during exertion/at [id number] oxygen at night) and palpitations; Deny abdominal pain, fever(s), nausea, syncope or vomiting Treatment prior to arrival: none Risk Factors: Coronary artery disease risk factors: diabetes, hyperlipidemia and hypertension Thoracic aortic dissection risk factors: none Related Data Home Medications ?Medication ?Instructions ?Recorded ?Confirmed metformin 500 mg tablet 500 mg PO BID 07/24/2405/14 furosemide 40 mg tablet 40 mg PO DAILY PRN Edema 07/1105/14/25 gabapentin 300 mg capsule 300 mg PO TID 10/25/2405/14 insulin glargine 100 unit/mL (3 50 unit SUBCUT BID 07/1105/14/25 mL) subcutaneous pen (Lantus Solostar U-100 Insulin) oxybutynin chloride 10 mg 20 mg PO DAILY 10/25/2404/17 tablet,extended release 24 hr varenicline tartrate 1 mg tablet 1 mg PO BID 10/25/24 05/14/25 dulaglutide 1.5 mg/0.5 mL 1.5 mg SUBCUT Q7D 10/27/24 0 05/14/25 subcutaneous pen [facility]or ([facility] cilostazol 100 mg tablet 100 mg PO BID 03/29/2505/14 dorzolamide 22.3 mg-timolol 6.8 1 drp ophthalmic (eye) BID 03/29/25 05/14/25 mg/mL eye drops empagliflozin 25 mg tablet 25 mg PO DAILY 03/29/25 (Jardiance) neomycin 3.5 mg/g-polymyxin B See Rx Instructions .Rou te .COMPLEX 03/29/25 05/14/25 10,000 unit/g-dexameth 0.1 % eye oint pantoprazole 40 mg tablet,delayed 40 mg PO QAM PRN Aci d Reflux 03/29/25 05/14/25 release tramadol 50 mg tablet 50 - 100 mg PO Q6H PRN Pain 03/29/25 05/14/25 Held on 04/04/25. Instructions: Resume on 04/11/25. hold until seen by PCP Previous Rx's ?Medication ?Instructions ?Recorded blood sugar diagnostic (Blood #50 ea 08/10/23 Glucose Test strips) lancets #100 ea 11/28/23 albuterol sulfate 90 mcg/actuation 2 puff inhalation Q 6H PRN 01/10/24 aerosol inhaler shortness of breath or wheez ing #8.5 grams blood sugar diagnostic (Blood #100 ea 01/10/24 Glucose Test strips) blood-glucose meter #1 ea 01/10/24 aspirin 81 mg tablet,delayed 81 mg PO QAM #30 tabs 02/07 release cyclobenzaprine 10 mg tablet 10 mg PO TID PRN Muscle S pasm #90 04/16/24 tabs duloxetine 60 mg capsule,delayed 60 mg PO DAILY #30 ca ps 04/16/24 release epinephrine 0.3 mg/0.3 mL 0.3 mg (0.3 mL) IM Q4H PRN 0 04/16/24 injection, auto-injector (EpiPen anaphylaxis #2 ea 2-Pankaj) pen needle, diabetic 31 gauge x #100 ea 04/16/24 5/16 (Comfort EZ Pen [place]) pen needle, diabetic 32 gauge x #100 ea 04/16/24 532 (Comfort EZ Pen [place]) quetiapine 200 mg tablet 200 mg PO BEDTIME #30 tabs 0 04/16/24 Wheel chair #1 ea 07/19/24 Diabetic shoes with 3 sets of #1 ea 08/09/24 insoles and toe filler to right ticagrelor 90 mg tablet (Brilinta) 90 mg PO BID #180 t abs 03/06/25 atorvastatin 40 mg tablet (Lipitor) 40 mg PO QPM #30 t abs 04/04/25 buprenorphine 2 mg-naloxone 0.5 mg 1 tab sublingual BI D PRN Pain, 04/04/25 sublingual tablet Moderate #6 tabs lidocaine 5 % topical patch 1 patch topical DAILY PRN pain #15 04/04/25 ea metoprolol tartrate 25 mg tablet 25 mg PO BID@0900,210 0 #60 tabs 04/04/25 nitroglycerin 0.4 mg sublingual 0.4 mg sublingual Q5M PRN Chest 04/15/25 tablet (Nitrostat) Pain #30 tabs ezetimibe 10 mg tablet See Rx Instructions .Route 0 05/03/25 .COMPLEX #90 tabs losartan 50 mg tablet See Rx Instructions .Route 0 05/03/25 .COMPLEX #90 tabs mupirocin calcium 2 % topical cream 1 applic topical B ID #15 grams 05/14/25 Allergies Allergy/AdvReac Type Severity Reaction Status Date / Time doxycycline Allergy Mild ADR-Photose Verified 05/14/25 08:32 nsitivity fentanyl Allergy Unknown ALGY-Difficulty Verified 05/14/25 08:32 Breathing adhesive Allergy Unknown Verified 05/14/25 08:32 buprenorphine (From Suboxone) Allergy Unknown Verified 09/02/25 15:47 codeine Allergy Unknown Verified 05/14/25 08:32 hydrocodone Allergy ADR-Itching Verified 05/14/25 08:32 latex Allergy ALGY-Swell Verified 05/14/25 08:32 Lip/Tongue/Throat naloxone (From Suboxone) Allergy Unknown Verified 09/02/25 15:47 naproxen (From Naprosyn) Allergy Unknown Verified 05/14/25 08:32 nut - unspecified Allergy ALGY-Anaphy Verified 05/14/25 08:32 laxis Penicillins Allergy Unknown Verified 05/14/25 08:32 tramadol Allergy ADR-Itching Verified 05/14/25 08:32 Review of Systems 2 Const: Denies: fever(s), chills or body aches Card: Reports: chest pain, palpitations, dyspnea on exertion and leg pain with exertion (chronic-known PAD); Denies: irregular heart rhythm, edema, lightheadedness, syncope or pre-syncope Resp: Reports: dyspnea (during exertion/at [id number] oxygen at night); Denies: productive cough, non-productive cough, wheezing or chest congestion GI: Denies: abdominal pain, nausea, vomiting or diarrhea : Denies: flank pain Musc: Reports: extremity pain (chronic leg pain-reportedly supposed to having arterial stents placed) and other (reports pain everywhere from her RA/fibromyalgia) Skin/Breast: Denies: rash Neuro: Denies: headache(s) PFSH ED 2 PFSH: Medical History Moderate aortic stenosis NSTEMI (non-ST elevated myocardial infarction) Chronic migraine without aura, intractable, with status migrainosus Hemiparesis affecting right side as late effect of cerebrovascular accident Generalized epilepsy Equinus contracture of left ankle Amputated toe of left foot Amputated toe of right foot Septic arthritis suspected Osteomyelitis of ankle or foot, right, acute Acute osteomyelitis of right foot Acute respiratory failure with hypoxia PAD (peripheral artery disease) Hammertoe of left foot Thrombocytosis, unspecified Diabetes Cellulitis Essential hypertension Depression Anemia 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 COPD (chronic obstructive pulmonary disease) Hypersensitivity pneumonitis Rheumatoid arthritis Infection of total left knee replacement Right wrist deformity History of stroke Acute exacerbation of chronic obstructive pulmonary disease (COPD) Acute encephalopathy Acute alteration in mental status Sepsis Sacral pressure ulcer Cellulitis of gluteal region Seizure disorder Hypoxemia Seizure UTI (urinary tract infection) Chronic, continuous use of opioids Seizures Acute and chronic respiratory failure with hypoxia Pneumonia Pneumonia Acute hypoxemic respiratory failure Stenosis of left internal carotid artery with cerebral infarction Diabetic foot ulcer Right arm weakness Hoarseness of voice Sepsis Numbness and tingling in both hands Urinary tract infection Chest pain Syncope Needs flu shot Carpal tunnel syndrome, right Urinary incontinence Chronic knee pain Abnormal stress test CAD (coronary artery disease) Acute exacerbation of CHF (congestive heart failure) Unstable angina COPD exacerbation Exposure to COVID-19 virus Compression fracture of L2 lumbar vertebra Right hip pain Dyspnea (HFpEF) heart failure with preserved eje ction fraction Candidiasis of vagina History of CVA (cerebrovascular accident) Elevated troponin Pericardial effusion Pressure ulcer Prosthetic joint infection Septic arthritis of knee, left Osteoarthritis of left knee History of hypoglycemic coma Obesity (BMI 35.0-39.9 without comorbidity) Peripheral sensory neuropathy due to type 2 diabetes mellitus Coronary artery disease due to type 2 diabetes mellitus Diabetes type 2, uncontrolled Neuropathy Insomnia Fibromyalgia, primary Hyperlipidemia, mixed CVA (cerebral vascular accident) Dyslipidemia Leukocytosis Chronic obstructive pulmonary disease, unspecified Vitamin D deficiency Type 2 diabetes mellitus with diabetic autonomic (poly)neuropathy Essential hypertension Encounter for long-term opiate analgesic use Opioid contract exists Current every day smoker Chronic pain of left knee Low back pain radiating to both legs Intervertebral disc disorder of lumbar region with myelopathy Lumbosacral spondylosis without myelopathy Osteoarthritis of spine at multiple levels Chronic left-sided low back pain Surgical History History of amputation of great toe of both feet Status post left knee replacement History of coronary angiogram Angiogram April 2020 with 90% circumflex lesion, drug-eluting stent placed by Dr. Jerome Status post lumbar laminectomy S/P lumbar fusion DR. Shreya ZAYAS IN [place], [place] L4-L5, L5-S1 S/p bilateral carpal tunnel release History of arthroscopic surgery of elbow BILATERAL S/P hysterectomy S/P knee surgery RIGHT Family History Other CAD (coronary artery disease) Cancer Diabetes Social History Smoking and tobacco/nicotine status: current every day tobacco/nicotine user (vaping) cigarettes Packs smoked per day: 0.5 Years cigarettes smoked: 10 [ Other cigarette details: PER PATIENT REPORT] Alcohol intake: former Substance/Drug Use: never Caregiver/support person: Yes Lives independently: No Housing: Jail Marital status: Unknown Marital status details: She and son state she is not service: No Current occupational status: unemployed Pets and animals: Yes Do you think of yourself as: Straight/Heterosexual Current gender identity: Female Course 2 Consultations: Consultation #1: Dr. Granda-accepts hospitalization; requests consult with cardiology Consultation #2: Dr. Lyles-recommending trending 2 hr trop-if statistically significant trend upwards then start her on ACS protocol Vital Signs: Vital signs: Vital Signs Temperature 97.5 F L 09/02/25 15:42 Pulse Rate 101 H 09/02/25 18:24 Respiratory Rate 17 09/02/25 18:24 Blood Pressure 140/74 09/02/25 18:24 Pulse Oximetry 94 09/02/25 18:24 Oxygen Delivery Me thod Room Air 09/02/25 18:24 MDM - Chest Pain Medical Decision Making Patient is a 60-year-old female with an extensive past medical history including an extensive cardiac history here for chest pain over the past 2 weeks. She describes chest pain is worse when she gets up and moves around her home and is alleviated by rest. She did have similar symptoms back in March and was subsequently admitted and found to have restenosis of her RCA stent. Today she has acute T wave changes on her EKG compared to EKGs on file from June. Baseline troponin of 26 which seems to be close to her baseline. 2-hour troponin is negative. Based on her history, her heart score is certainly high enough to admit her. Other findings on her blood work include chronic microcytic anemia and chronic thrombocytopenia. CXR personal interpretation showing no acute changes-possible small right effusion. BNP pending. I spoke to Dr. Granda who will assess patient here in ED. I also spoke to Dr. Zepeda who is recommending following 2hr trop and if significant change then will place on ACS protocol. I have spoken to Dr. Jarrett about patient and reviewed EKG with him who agrees with care plan at this time. Medical Records I reviewed the patient's medical records. Lab Data I reviewed the patient's lab results. 09/02/25 15:52 09/02/25 15:52 Radiology Impressions Chest X-Ray 09/02/25 15:38 IMPRESSION: Low lung volumes with probable central vascular congestion and interstitial edema. Mild bibasilar opacities could represent atelectasis or trace infiltrate. Laboratory Results WBC 13.39 10^3/uL (3.29-11.43) H 09/02/25 15:52 RBC 5.17 10^6/uL (3.85-5.65) 09/02/25 15:52 Hgb 9.20 g/dL (11.27-16.99) L 09/02/25 15:52 Hct 32.1 % (36-47) L 09/02/25 15:52 MCV 62.1 fl (85-98) L 09/02/25 15:52 MCH 17.8 pg (27-33) L 09/02/25 15:52 MCHC 28.7 g/dL (30-55) L 09/02/25 15:52 RDW 23.4 % (12.1-15.1) H 09/02/25 15:52 Plt Count 666 10^3/cmm (157-399) H 09/02/25 15:52 MPV 8.6 fL (7.4-10.4) 09/02/25 15:52 Neut % (Auto) 51.7 % 09/02/25 15:52 Lymph % (Auto) 32.0 % 09/02/25 15:52 Cook % (Auto) 8.1 % 09/02/25 15:52 Eos % (Auto) 6.1 % 09/02/25 15:52 Baso % (Auto) 1.3 % 09/02/25 15:52 Neut # (Auto) 6.93 10^3/uL (1.8-7.7) 09/02/25 15:52 Lymph # (Auto) 4.3 10^3/uL (0.8-4.8) 09/02/25 15:52 Cook # (Auto) 1.1 10^3/uL (0.2-0.9) H 09/02/25 15:52 Eos # (Auto) 0.8 10^3/uL (0.0-0.8) 09/02/25 15:52 Baso # (Auto) 0.2 10^3/uL (0.0-0.1) H 09/02/25 15:52 Nucleated RBC % (auto) 0 % 09/02/25 15:52 Nucleated RBCs # 0.0 /100WBC 09/02/25 15:52 PT 12.00 SECONDS (12.1-14.9) L 09/02/25 15:52 INR 0.83 (0.8-1.2) 09/02/25 15:52 Sodium 136 mmol/L (136-145) 09/02/25 15:52 Potassium 4.9 mmol/L (3.5-5.1) 09/02/25 15:52 Chloride 102 mmol/L (98-107) 09/02/25 15:52 Carbon Dioxide 21 mmol/L (22-29) L 09/02/25 15:52 Anion Gap 17.9 (5-19) 09/02/25 15:52 BUN 17 mg/dL (6-20) 09/02/25 15:52 Creatinine 0.8 mg/dL (0.5-0.9) 09/02/25 15:52 GFR Calculation 73.7 mL/min (90-130) L 09/02/25 15:52 Glucose 160 mg/dL (65-115) H 09/02/25 15:52 Calculated Osmolality 287 mOsm/kg (285-295) 09/02/25 15:52 Calcium 9.3 mg/dL (8.5-10.5) 09/02/25 15:52 Total Bilirubin 0.2 mg/dL (0.15-1.2) 09/02/25 15:52 AST 10 U/L (0-32) 09/02/25 15:52 ALT 12 U/L (0-33) 09/02/25 15:52 Alkaline Phosphatase 116 U/L (35-105) H 09/02/25 15:52 Troponin T Baseline 26 ng/L (0-10) H 09/02/25 15:52 Troponin T 120 Minute 25.29 ng/L (0-10) H 09/02/25 17:42 Delta Troponin T -0.71 ABS# (0-10) L 09/02/25 17:42 NT-Pro-B Natriuret Pep 273 pg/mL (0-125) H 09/02/25 15:52 Total Protein 6.7 g/dL (6.6-8.7) 09/02/25 15:52 Albumin 3.9 g/dL (3.5-5.2) 09/02/25 15:52 Globulin 2.8 g/dL (1.3-4.6) 09/02/25 15:52 Urine Color Yellow (Yellow) 09/02/25 17:58 Urine Appearance Clear (CLEAR) 09/02/25 17:58 Urine pH 5.0 (5-7) 09/02/25 17:58 Ur Specific [place] 1.019 (1.005-1.030) 09/02/25 17:58 Urine Protein Negative (Negative) 09/02/25 17:58 Urine Glucose (UA) 3+ (Normal) H 09/02/25 17:58 Urine Ketones Negative (Negative) 09/02/25 17:58 Urine Blood Negative (Negative) 09/02/25 17:58 Urine Nitrate Positive (Negative) A 09/02/25 17:58 Urine Bilirubin Negative (Negative) 09/02/25 17:58 Urine Urobilinogen 0.2 mg/dL (Negative) 09/02/25 17:58 Ur Leukocyte Esterase Trace (Negative) A 09/02/25 17:58 Urine RBC 3-5 /hpf (0-2) 09/02/25 17:58 Urine WBC 6-10 /hpf (0-5) 09/02/25 17:58 Ur Squamous Epith Cells 0-5 /hpf (0-5) 09/02/25 17:58 Amorphous Sediment Not Reportable 09/02/25 17:58 Urine Bacteria 2+ /hpf (NONE) H 09/02/25 17:58 Hyaline Casts 0.40 /lpf 09/02/25 17:58 XR interpretation done by ED provider, pending radiology final review EKG Data EKG 1: EKG interpretation date: 09/02/25 EKG interpretation time: 15:40 Prior EKG tracings: available for review Interpretation: Sinus tachycardia with occasional PVC Rate 109 Normal AR interval T wave abnormality with inverted T wave in lead I/aVL Reviewed with Dr. Jarrett Discharge Plan Discharge Patient Disposition: Admitted As Inpatient Clinical Impression: Acute electrocardiography changes CAD (coronary artery disease) Qualifiers: Coronary Disease-Associated Artery/Lesion type: unspecified vessel or lesion type [place] vs. transplanted heart: [place] heart Associated angina: with unstable angina Qualified Code(s): I25.110 - Atherosclerotic heart disease of [place] coronary artery with unstable angina pectoris Chest pain Qualifiers: Chest pain type: unspecified Qualified Code(s): R07.9 - Chest pain, unspecified Condition: Stable Coding Level of Care Code ED Icing And Glaze Maker for Chg Fwd Heart Score HEART Score Components History: Highly Suspicious EKG: Significant ST-deviation Age: 45-64 yrs Risk Factors: >/=3 Risk Factors Troponin: Baseline Trop 16-45 ng/L HEART Score RESULT HEART Score: 8 Documented by User: Sanam Jarrett MD 09/02/25 18:32 HPI - Chest Pain 2 General: Chief Complaint: Chest Pain Stated Complaint: chest pain - chronic leg/back pain Time Seen by Provider: 09/02/25 16:48 Related Data Home Medications ?Medication ?Instructions ?Recorded ?Confirmed metformin 500 mg tablet 500 mg PO BID 07/24/2405/14 furosemide 40 mg tablet 40 mg PO DAILY PRN Edema 07/1105/14/25 gabapentin 300 mg capsule 300 mg PO TID 10/25/2405/14 insulin glargine 100 unit/mL (3 50 unit SUBCUT BID 07/1105/14/25 mL) subcutaneous pen (Lantus Solostar U-100 Insulin) oxybutynin chloride 10 mg 20 mg PO DAILY 10/25/24 07/07/11 tablet,extended release 24 hr varenicline tartrate 1 mg tablet 1 mg PO BID 10/25/24 05/14/25 dulaglutide 1.5 mg/0.5 mL 1.5 mg SUBCUT Q7D 10/27/24 0 05/14/25 subcutaneous pen injector (Trulicity) cilostazol 100 mg tablet 100 mg PO BID 03/29/2505/14 dorzolamide 22.3 mg-timolol 6.8 1 drp ophthalmic (eye) BID 03/29/25 05/14/25 mg/mL eye drops empagliflozin 25 mg tablet 25 mg PO DAILY 03/29/25 (Jardiance) neomycin 3.5 mg/g-polymyxin B See Rx Instructions .Rou te .COMPLEX 03/29/25 05/14/25 10,000 unit/g-dexameth 0.1 % eye oint pantoprazole 40 mg tablet,delayed 40 mg PO QAM PRN Aci d Reflux 03/29/25 05/14/25 release tramadol 50 mg tablet 50 - 100 mg PO Q6H PRN Pain 03/29/25 05/14/25 Held on 04/04/25. Instructions: Resume on 04/11/25. hold until seen by PCP Previous Rx's ?Medication ?Instructions ?Recorded blood sugar diagnostic (Blood #50 ea 08/10/23 Glucose Test strips) lancets #100 ea 11/28/23 albuterol sulfate 90 mcg/actuation 2 puff inhalation Q 6H PRN 01/10/24 aerosol inhaler shortness of breath or wheez ing #8.5 grams blood sugar diagnostic (Blood #100 ea 01/10/24 Glucose Test strips) blood-glucose meter #1 ea 01/10/24 aspirin 81 mg tablet,delayed 81 mg PO QAM #30 tabs 02/07 release cyclobenzaprine 10 mg tablet 10 mg PO TID PRN Muscle S pasm #90 04/16/24 tabs duloxetine 60 mg capsule,delayed 60 mg PO DAILY #30 ca ps 04/16/24 release epinephrine 0.3 mg/0.3 mL 0.3 mg (0.3 mL) IM Q4H PRN 0 04/16/24 injection, auto-injector (EpiPen anaphylaxis #2 ea 2-Pankaj) pen needle, diabetic 31 gauge x #100 ea 04/16/24 5 (Comfort EZ Pen [place]) pen needle, diabetic 32 gauge x #100 ea 04/16/24 (Comfort EZ Pen [place]) quetiapine 200 mg tablet 200 mg PO BEDTIME #30 tabs 0 04/16/24 Wheel chair #1 ea 07/19/24 Diabetic shoes with 3 sets of #1 ea 08/09/24 insoles and toe filler to right ticagrelor 90 mg tablet (Brilinta) 90 mg PO BID #180 t abs 03/06/25 atorvastatin 40 mg tablet (Lipitor) 40 mg PO QPM #30 t abs 04/04/25 buprenorphine 2 mg-naloxone 0.5 mg 1 tab sublingual BI D PRN Pain, 04/04/25 sublingual tablet Moderate #6 tabs lidocaine 5 % topical patch 1 patch topical DAILY PRN pain #15 04/04/25 ea metoprolol tartrate 25 mg tablet 25 mg PO BID@0900,210 0 #60 tabs 04/04/25 nitroglycerin 0.4 mg sublingual 0.4 mg sublingual Q5M PRN Chest 04/15/25 tablet (Nitrostat) Pain #30 tabs ezetimibe 10 mg tablet See Rx Instructions .Route 0 05/03/25 .COMPLEX #90 tabs losartan 50 mg tablet See Rx Instructions .Route 0 05/03/25 .COMPLEX #90 tabs mupirocin calcium 2 % topical cream 1 applic topical B ID #15 grams 05/14/25 Allergies Allergy/AdvReac Type Severity Reaction Status Date / Time doxycycline Allergy Mild ADR-Photose Verified 05/14/25 08:32 nsitivity fentanyl Allergy Unknown ALGY-Difficulty Verified 05/14/25 08:32 Breathing adhesive Allergy Unknown Verified 05/14/25 08:32 buprenorphine (From Suboxone) Allergy Unknown Verified 09/02/25 15:47 codeine Allergy Unknown Verified 05/14/25 08:32 hydrocodone Allergy ADR-Itching Verified 05/14/25 08:32 latex Allergy ALGY-Swell Verified 05/14/25 08:32 Lip/Tongue/Throat naloxone (From Suboxone) Allergy Unknown Verified 09/02/25 15:47 naproxen (From Naprosyn) Allergy Unknown Verified 05/14/25 08:32 nut - unspecified Allergy ALGY-Anaphy Verified 05/14/25 08:32 laxis Penicillins Allergy Unknown Verified 05/14/25 08:32 tramadol Allergy ADR-Itching Verified 05/14/25 08:32 [facility] ED 2 [facility]: Medical History Moderate aortic stenosis NSTEMI (non-ST elevated myocardial infarction) Chronic migraine without aura, intractable, with status migrainosus Hemiparesis affecting right side as late effect of cerebrovascular accident Generalized epilepsy Equinus contracture of left ankle Amputated toe of left foot Amputated toe of right foot Septic arthritis suspected Osteomyelitis of ankle or foot, right, acute Acute osteomyelitis of right foot Acute respiratory failure with hypoxia PAD (peripheral artery disease) Hammertoe of left foot Thrombocytosis, unspecified Diabetes Cellulitis Essential hypertension Depression Anemia 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 COPD (chronic obstructive pulmonary disease) Hypersensitivity pneumonitis Rheumatoid arthritis Infection of total left knee replacement Right wrist deformity History of stroke Acute exacerbation of chronic obstructive pulmonary disease (COPD) Acute encephalopathy Acute alteration in mental status Sepsis Sacral pressure ulcer Cellulitis of gluteal region Seizure disorder Hypoxemia Seizure UTI (urinary tract infection) Chronic, continuous use of opioids Seizures Acute and chronic respiratory failure with hypoxia Pneumonia Pneumonia Acute hypoxemic respiratory failure Stenosis of left internal carotid artery with cerebral infarction Diabetic foot ulcer Right arm weakness Hoarseness of voice Sepsis Numbness and tingling in both hands Urinary tract infection Chest pain Syncope Needs flu shot Carpal tunnel syndrome, right Urinary incontinence Chronic knee pain Abnormal stress test CAD (coronary artery disease) Acute exacerbation of CHF (congestive heart failure) Unstable angina COPD exacerbation Exposure to COVID-19 virus Compression fracture of L2 lumbar vertebra Right hip pain Dyspnea (HFpEF) heart failure with preserved eje ction fraction Candidiasis of vagina History of CVA (cerebrovascular accident) Elevated troponin Pericardial effusion Pressure ulcer Prosthetic joint infection Septic arthritis of knee, left Osteoarthritis of left knee History of hypoglycemic coma Obesity (BMI 35.0-39.9 without comorbidity) Peripheral sensory neuropathy due to type 2 diabetes mellitus Coronary artery disease due to type 2 diabetes mellitus Diabetes type 2, uncontrolled Neuropathy Insomnia Fibromyalgia, primary Hyperlipidemia, mixed CVA (cerebral vascular accident) Dyslipidemia Leukocytosis Chronic obstructive pulmonary disease, unspecified Vitamin D deficiency Type 2 diabetes mellitus with diabetic autonomic (poly)neuropathy Essential hypertension Encounter for long-term opiate analgesic use Opioid contract exists Current every day smoker Chronic pain of left knee Low back pain radiating to both legs Intervertebral disc disorder of lumbar region with myelopathy Lumbosacral spondylosis without myelopathy Osteoarthritis of spine at multiple levels Chronic left-sided low back pain Surgical History History of amputation of great toe of both feet Status post left knee replacement History of coronary angiogram Angiogram April 2020 with 90% circumflex lesion, drug-eluting stent placed by Dr. Jerome Status post lumbar laminectomy S/P lumbar fusion DR. Shreya ZAYAS IN [place], [place] L4-L5, L5-S1 S/p bilateral carpal tunnel release History of arthroscopic surgery of elbow BILATERAL S/P hysterectomy S/P knee surgery RIGHT Family History Other CAD (coronary artery disease) Cancer Diabetes Social History Smoking and tobacco/nicotine status: current every day tobacco/nicotine user (vaping) cigarettes Packs smoked per day: 0.5 Years cigarettes smoked: 10 [ Other cigarette details: PER PATIENT REPORT] Alcohol intake: former Substance/Drug Use: never Caregiver/support person: Yes Lives independently: No Housing: Jail Marital status: Unknown Marital status details: She and son state she is not service: No Current occupational status: unemployed Pets and animals: Yes Do you think of yourself as: Straight/Heterosexual Current gender identity: Female Course 2 Vital Signs: Vital signs: Vital Signs Temperature 97.5 F L 09/02/25 15:42 Pulse Rate 101 H 09/02/25 18:24 Respiratory Rate 17 09/02/25 18:24 Blood Pressure 140/74 09/02/25 18:24 Pulse Oximetry 94 09/02/25 18:24 Oxygen Delivery Me thod Room Air 09/02/25 18:24 MDM - Chest Pain Medical Decision Making Patient is a 60-year-old female with an extensive past medical history including an extensive cardiac history here for chest pain over the past 2 weeks. She describes chest pain is worse when she gets up and moves around her home and is alleviated by rest. She did have similar symptoms back in March and was subsequently admitted and found to have restenosis of her RCA stent. Today she has acute T wave changes on her EKG compared to EKGs on file from June. Baseline troponin of 26 which seems to be close to her baseline. 2-hour troponin is pending. Based on her history, her heart score is certainly high enough to admit her. Other findings on her blood work include chronic microcytic anemia and chronic thrombocytopenia. CXR personal interpretation showing no acute changes-possible small right effusion. BNP pending as well. I spoke to Dr. Granda who will assess patient here in ED. I also spoke to Dr. Zepeda who is recommending following 2hr trop and elevated will place on ACS protocol. I have spoken to Dr. Jarrett about patient and reviewed EKG with him who agrees with care plan at this time. The case was discussed with the midlevel provider. Evaluation and management service: I agree with the evaluation and management decisions made in this patient's care. Results interpretation: I agree with the study interpretation in this patient's care, I agree with the documentation of the study interpretation. Lab Data 09/02/25 15:52 09/02/25 15:52 Radiology Impressions Chest X-Ray 09/02/25 15:38 IMPRESSION: Low lung volumes with probable central vascular congestion and interstitial edema. Mild bibasilar opacities could represent atelectasis or trace infiltrate. Laboratory Results WBC 13.39 10^3/uL (3.29-11.43) H 09/02/25 15:52 RBC 5.17 10^6/uL (3.85-5.65) 09/02/25 15:52 Hgb 9.20 g/dL (11.27-16.99) L 09/02/25 15:52 Hct 32.1 % (36-47) L 09/02/25 15:52 MCV 62.1 fl (85-98) L 09/02/25 15:52 MCH 17.8 pg (27-33) L 09/02/25 15:52 MCHC 28.7 g/dL (30-55) L 09/02/25 15:52 RDW 23.4 % (12.1-15.1) H 09/02/25 15:52 Plt Count 666 10^3/cmm (157-399) H 09/02/25 15:52 MPV 8.6 fL (7.4-10.4) 11/17/25 15:52 Neut % (Auto) 51.7 % 09/02/25 15:52 Lymph % (Auto) 32.0 % 09/02/25 15:52 Cook % (Auto) 8.1 % 09/02/25 15:52 Eos % (Auto) 6.1 % 09/02/25 15:52 Baso % (Auto) 1.3 % 09/02/25 15:52 Neut # (Auto) 6.93 10^3/uL (1.8-7.7) 09/02/25 15:52 Lymph # (Auto) 4.3 10^3/uL (0.8-4.8) 09/02/25 15:52 Cook # (Auto) 1.1 10^3/uL (0.2-0.9) H 09/02/25 15:52 Eos # (Auto) 0.8 10^3/uL (0.0-0.8) 09/02/25 15:52 Baso # (Auto) 0.2 10^3/uL (0.0-0.1) H 09/02/25 15:52 Nucleated RBC % (auto) 0 % 09/02/25 15:52 Nucleated RBCs # 0.0 /100WBC 09/02/25 15:52 PT 12.00 SECONDS (12.1-14.9) L 09/02/25 15:52 INR 0.83 (0.8-1.2) 09/02/25 15:52 Sodium 136 mmol/L (136-145) 09/02/25 15:52 Potassium 4.9 mmol/L (3.5-5.1) 09/02/25 15:52 Chloride 102 mmol/L (98-107) 09/02/25 15:52 Carbon Dioxide 21 mmol/L (22-29) L 09/02/25 15:52 Anion Gap 17.9 (5-19) 09/02/25 15:52 BUN 17 mg/dL (6-20) 09/02/25 15:52 Creatinine 0.8 mg/dL (0.5-0.9) 09/02/25 15:52 GFR Calculation 73.7 mL/min (90-130) L 09/02/25 15:52 Glucose 160 mg/dL (65-115) H 09/02/25 15:52 Calculated Osmolality 287 mOsm/kg (285-295) 09/02/25 15:52 Calcium 9.3 mg/dL (8.5-10.5) 09/02/25 15:52 Total Bilirubin 0.2 mg/dL (0.15-1.2) 09/02/25 15:52 AST 10 U/L (0-32) 09/02/25 15:52 ALT 12 U/L (0-33) 09/02/25 15:52 Alkaline Phosphatase 116 U/L (35-105) H 09/02/25 15:52 Troponin T Baseline 26 ng/L (0-10) H 09/02/25 15:52 Troponin T 120 Minute 25.29 ng/L (0-10) H 09/02/25 17:42 Delta Troponin T -0.71 ABS# (0-10) L 09/02/25 17:42 NT-Pro-B Natriuret Pep 273 pg/mL (0-125) H 09/02/25 15:52 Total Protein 6.7 g/dL (6.6-8.7) 09/02/25 15:52 Albumin 3.9 g/dL (3.5-5.2) 09/02/25 15:52 Globulin 2.8 g/dL (1.3-4.6) 09/02/25 15:52 Urine Color Yellow (Yellow) 09/02/25 17:58 Urine Appearance Clear (CLEAR) 09/02/25 17:58 Urine pH 5.0 (5-7) 09/02/25 17:58 Ur Specific [place] 1.019 (1.005-1.030) 09/02/25 17:58 Urine Protein Negative (Negative) 09/02/25 17:58 Urine Glucose (UA) 3+ (Normal) H 09/02/25 17:58 Urine Ketones Negative (Negative) 09/02/25 17:58 Urine Blood Negative (Negative) 09/02/25 17:58 Urine Nitrate Positive (Negative) A 09/02/25 17:58 Urine Bilirubin Negative (Negative) 09/02/25 17:58 Urine Urobilinogen 0.2 mg/dL (Negative) 09/02/25 17:58 Ur Leukocyte Esterase Trace (Negative) A 09/02/25 17:58 Urine RBC 3-5 /hpf (0-2) 09/02/25 17:58 Urine WBC 6-10 /hpf (0-5) 09/02/25 17:58 Ur Squamous Epith Cells 0-5 /hpf (0-5) 09/02/25 17:58 Amorphous Sediment Not Reportable 09/02/25 17:58 Urine Bacteria 2+ /hpf (NONE) H 09/02/25 17:58 Hyaline Casts 0.40 /lpf 09/02/25 17:58 Discharge Plan Discharge Patient Disposition: Admitted As Inpatient Clinical Impression: Acute electrocardiography changes CAD (coronary artery disease) Qualifiers: Coronary Disease-Associated Artery/Lesion type: unspecified vessel or lesion type [place] vs. transplanted heart: [place] heart Associated angina: with unstable angina Qualified Code(s): I25.110 - Atherosclerotic heart disease of [place] coronary artery with unstable angina pectoris Chest pain Qualifiers: Chest pain type: unspecified Qualified Code(s): R07.9 - Chest pain, unspecified Condition: Stable Coding Level of Care Code ED Icing And Glaze Maker for Subhashg Ottoniel Heart Score HEART Score RESULT HEART Score: 8
[2025-09-02 16:52] LABS: Alanine Aminotransferase 12 U/L (0-33); Albumin Level 3.9 g/dL (3.5-5.2); Alkaline Phosphatase 116 U/L (35-105); Aspartate Amino Transferase 10 U/L (0-32); Blood Urea Nitrogen 17 mg/dL (6-20); Calcium 9.3 mg/dL (8.5-10.5); Carbon Dioxide 21 mmol/L (22-29); Globulin 2.8 g/dL (1.3-4.6); Glucose 160 mg/dL (65-115); Total Protein 6.7 g/dL (6.6-8.7)
[2025-09-02 16:55] LABS: Slide Review Slide Review Perform
[2025-09-02 16:57] LABS: Anion Gap 17.9 (5-19); Chloride 102 mmol/L (98-107); Osmolality Calculated 287 mOsm/kg (285-295); Potassium 4.9 mmol/L (3.5-5.1); Sodium 136 mmol/L (136-145)
--- NOTE | 2025-09-02 17:38 | ECG_ITS ---
[facility] Date: 2025-09-02 Pat Name: Mayra Ascencio Department: Room: Gender: Female [place] Nurse: : 1965 Requested By: Sanam Falcon Order Number: [id number] Ashlee MD: Troy Joyce M.D. Measurements Intervals [place] Rate: 102 P: 51 GA: 201 QRS: 19 QRSD: 92 T: 105 QT: 331 QTc: 433 Interpretive Statements SINUS TACHYCARDIA MODERATE T-WAVE ABNORMALITY, CONSIDER LATERAL ISCHEMIA [-0.1+ mV T-WAVE IN I/aVL/V5/V6] Compared to ECG 09/02/2025 15:40:16 Ventricular premature complex(es) no longer present Myocardial infarct finding no longer present T-wave abnormality still present Possible ischemia still present Electronically Signed On 09-05-2025 00:22:07 MANAGER OF APPLICATION DEVELOPMENT by Troy Joyce M.D. [id number] [id number]
[2025-09-02] MEDS: ondansetron 2 mg/ML SDV 2 mL 4 MG IVP (17:46)
[2025-09-02] MEDS: metoprolol tartrate 1 mg/1 mL SDV 5 mL 5 MG IVP (17:46)
[2025-09-02] MEDS: morphine 4 mg/mL SDV 1 mL IVP ×3 (17:46→23:43)
[2025-09-02 17:56] LABS: NT Pro B Type Natriuretic Pept 273 pg/mL (0-125)
[2025-09-02 18:12] LABS: Glucose Urine UA 3+ (Normal); Nitrate Urine Positive (Negative); Specific Gravity, Urine 1.019 (1.005-1.030)
--- NOTE | 2025-09-02 18:12 | PM.HP ---
Providers/Chief Complaint Admitting Physician: Nakul Granda MD, MPH Chief Complaint: chest pain & generalized body pain History of Present Illness Mayra Ascencio is a 60 year old female with known and significant history of CAD, as well as rheumatoid arthritis and fibromyalgia, and who presented to the ER this afternoon with complaint of chest pain. Symptom has been gradual in onset, and has been going on for the past 2 to 4 weeks. No known provoking factor. Patient reports worsening symptoms in the last 1 to 2 days, therefore making her come to the ER for further evaluation. She reports her chest pain is worse with exertion and relieved with rest. She also reports generalized pain both in the ankles and a rest of the limb & body, and, which she attributes very to her fibromyalgia and rheumatoid arthritis. She reports having run out of her home medications for these. Upon getting to the ER, preliminaary workup was negative. However, EKG was reported to have shown some new changes. Therefore, given significant history, she is recommended for further evaluation and treatment. Patient denies associated difficulty breathing, diaphoresis, nausea or vomiting. She denies any associated dizziness or giddiness or palpitations. From the ER, cardiology was consulted, who is yet to see patient. As at time I saw patient, she reports old history of very dry and sensitive tongue, which affects her oral intake. Otherwise, she has no new complaints. Review of Systems Narrative: General: Negative for fever, headaches, dizziness or weakness. Respiration: Negative for shortness of breath, cough or wheezing. GI: Negative for nausea, vomiting, or diarrhea/constipation. UGS: Negative for dysuria, urgency or increased urinary frequency. All other systems reviewed, and essentially negative, except as in the HPI. Medications/Allergies Home Medications ?Medication ?Instructions ?Recorded ?Confirmed ?Last Taken ?Type blood sugar diagnostic (Blood #50 ea 08/10/23 05/14/25 Unknown Rx Glucose Test strips) lancets #100 ea 11/28/23 05/14/25 Unknown Rx albuterol sulfate 90 mcg/actuation 2 puff inhalation Q6H PRN 01/10/24 05/14/25 11/14/24 18:00 Rx aerosol inhaler shortness of breath or wheezing #8.5 grams blood sugar diagnostic (Blood #100 ea 01/10/24 05/14/25 Unknown Rx Glucose Test strips) blood-glucose meter #1 ea 01/10/24 05/14/25 Unknown Rx aspirin 81 mg tablet,delayed 81 mg PO QAM #30 tabs 03/20/24 05/14/25 03/28/25 Rx release cyclobenzaprine 10 mg tablet 10 mg PO TID PRN Muscle Spasm #90 04/16/24 05/14/25 11/14/24 18:00 Rx tabs duloxetine 60 mg capsule,delayed 60 mg PO DAILY #30 caps 04/16/24 05/14/25 03/28/25 Rx release epinephrine 0.3 mg/0.3 mL 0.3 mg (0.3 mL) IM Q4H PRN 04/16/24 05/14/25 07/23/24 Rx injection, auto-injector (EpiPen anaphylaxis #2 ea 2-Pankaj) pen needle, diabetic 31 gauge x #100 ea 04/16/24 05/14/25 Unknown Rx 5/16 (Comfort EZ Pen [place]) pen needle, diabetic 32 gauge x #100 ea 04/16/24 05/14/25 Unknown Rx 5/32 (Comfort EZ Pen [place]) quetiapine 200 mg tablet 200 mg PO BEDTIME #30 tabs 04/16/24 05/14/25 03/28/25 Rx Wheel chair #1 ea 07/19/24 05/14/25 Unknown Rx metformin 500 mg tablet 500 mg PO BID 07/24/24 05/14/25 03/28/25 History Diabetic shoes with 3 sets of #1 ea 08/09/24 05/14/25 Unknown Rx insoles and toe filler to right furosemide 40 mg tablet 40 mg PO DAILY PRN Edema 10/25/24 05/14/25 10/26/24 History gabapentin 300 mg capsule 300 mg PO TID 10/25/24 05/14/25 03/28/25 History insulin glargine 100 unit/mL (3 50 unit SUBCUT BID 10/25/24 05/14/25 03/28/25 History mL) subcutaneous pen (Lantus Solostar U-100 Insulin) oxybutynin chloride 10 mg 20 mg PO DAILY 10/25/24 05/14/25 03/28/25 History tablet,extended release 24 hr varenicline tartrate 1 mg tablet 1 mg PO BID 10/25/24 05/14/25 03/28/25 History dulaglutide 1.5 mg/0.5 mL 1.5 mg SUBCUT Q7D 10/27/24 05/14/25 03/27/25 History subcutaneous pen injector (Trulicity) ticagrelor 90 mg tablet (Brilinta) 90 mg PO BID #180 tabs 03/06/25 05/14/25 03/28/25 Rx cilostazol 100 mg tablet 100 mg PO BID 03/29/25 05/14/25 03/28/25 History dorzolamide 22.3 mg-timolol 6.8 1 drp ophthalmic (eye) BID 03/29/25 05/14/25 03/28/25 History mg/mL eye drops empagliflozin 25 mg tablet 25 mg PO DAILY 03/29/25 05/14/25 03/28/25 History (Jardiance) neomycin 3.5 mg/g-polymyxin B See Rx Instructions .Route .COMPLEX 03/29/25 05/14/25 03/28/25 History 10,000 unit/g-dexameth 0.1 % eye oint pantoprazole 40 mg tablet,delayed 40 mg PO QAM PRN Acid Reflux 03/29/25 05/14/25 Unknown History release tramadol 50 mg tablet 50 - 100 mg PO Q6H PRN Pain 03/29/25 05/14/25 Unknown History Held on 04/04/25. Instructions: Resume on 04/11/25. hold until seen by PCP atorvastatin 40 mg tablet (Lipitor) 40 mg PO QPM #30 tabs 04/04/25 05/14/25 Unknown Rx buprenorphine 2 mg-naloxone 0.5 mg 1 tab sublingual BID PRN Pain, 04/04/25 05/14/25 Unknown Rx sublingual tablet Moderate #6 tabs lidocaine 5 % topical patch 1 patch topical DAILY PRN pain #15 04/04/25 05/14/25 Unknown Rx ea metoprolol tartrate 25 mg tablet 25 mg PO BID@0900,2100 #60 tabs 04/04/25 05/14/25 Unknown Rx nitroglycerin 0.4 mg sublingual 0.4 mg sublingual Q5M PRN Chest 04/15/25 05/14/25 Unknown Rx tablet (Nitrostat) Pain #30 tabs ezetimibe 10 mg tablet See Rx Instructions .Route 05/03/25 05/14/25 Unknown Rx .COMPLEX #90 tabs losartan 50 mg tablet See Rx Instructions .Route 05/03/25 05/14/25 Unknown Rx .COMPLEX #90 tabs mupirocin calcium 2 % topical cream 1 applic topical BID #15 grams 05/14/25 05/14/25 Unknown Rx Allergies Allergy/AdvReac Type Severity Reaction Status Date / Time doxycycline Allergy Mild ADR-Photose Verified 05/14/25 08:32 nsitivity fentanyl Allergy Unknown ALGY-Difficulty Verified 05/14/25 08:32 Breathing adhesive Allergy Unknown Verified 05/14/25 08:32 buprenorphine (From Suboxone) Allergy Unknown Verified 09/02/25 15:47 codeine Allergy Unknown Verified 05/14/25 08:32 hydrocodone Allergy ADR-Itching Verified 05/14/25 08:32 latex Allergy ALGY-Swell Verified 05/14/25 08:32 Lip/Tongue/Throat naloxone (From Suboxone) Allergy Unknown Verified 09/02/25 15:47 naproxen (From Naprosyn) Allergy Unknown Verified 05/14/25 08:32 nut - unspecified Allergy ALGY-Anaphy Verified 05/14/25 08:32 laxis Penicillins Allergy Unknown Verified 05/14/25 08:32 tramadol Allergy ADR-Itching Verified 05/14/25 08:32 PFSH Acute PFSH: Medical History Moderate aortic stenosis NSTEMI (non-ST elevated myocardial infarction) Chronic migraine without aura, intractable, with status migrainosus Hemiparesis affecting right side as late effect of cerebrovascular accident Generalized epilepsy Equinus contracture of left ankle Amputated toe of left foot Amputated toe of right foot Septic arthritis suspected Osteomyelitis of ankle or foot, right, acute Acute osteomyelitis of right foot Acute respiratory failure with hypoxia PAD (peripheral artery disease) Hammertoe of left foot Thrombocytosis, unspecified Diabetes Cellulitis Essential hypertension Depression Anemia 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 COPD (chronic obstructive pulmonary disease) Hypersensitivity pneumonitis Rheumatoid arthritis Infection of total left knee replacement Right wrist deformity History of stroke Acute exacerbation of chronic obstructive pulmonary disease (COPD) Acute encephalopathy Acute alteration in mental status Sepsis Sacral pressure ulcer Cellulitis of gluteal region Seizure disorder Hypoxemia Seizure UTI (urinary tract infection) Chronic, continuous use of opioids Seizures Acute and chronic respiratory failure with hypoxia Pneumonia Pneumonia Acute hypoxemic respiratory failure Stenosis of left internal carotid artery with cerebral infarction Diabetic foot ulcer Right arm weakness Hoarseness of voice Sepsis Numbness and tingling in both hands Urinary tract infection Chest pain Syncope Needs flu shot Carpal tunnel syndrome, right Urinary incontinence Chronic knee pain Abnormal stress test CAD (coronary artery disease) Acute exacerbation of CHF (congestive heart failure) Unstable angina COPD exacerbation Exposure to COVID-19 virus Compression fracture of L2 lumbar vertebra Right hip pain Dyspnea (HFpEF) heart failure with preserved ejection fraction Candidiasis of vagina History of CVA (cerebrovascular accident) Elevated troponin Pericardial effusion Pressure ulcer Prosthetic joint infection Septic arthritis of knee, left Osteoarthritis of left knee History of hypoglycemic coma Obesity (BMI 35.0-39.9 without comorbidity) Peripheral sensory neuropathy due to type 2 diabetes mellitus Coronary artery disease due to type 2 diabetes mellitus Diabetes type 2, uncontrolled Neuropathy Insomnia Fibromyalgia, primary Hyperlipidemia, mixed CVA (cerebral vascular accident) Dyslipidemia Leukocytosis Chronic obstructive pulmonary disease, unspecified Vitamin D deficiency Type 2 diabetes mellitus with diabetic autonomic (poly)neuropathy Essential hypertension Encounter for long-term opiate analgesic use Opioid contract exists Current every day smoker Chronic pain of left knee Low back pain radiating to both legs Intervertebral disc disorder of lumbar region with myelopathy Lumbosacral spondylosis without myelopathy Osteoarthritis of spine at multiple levels Chronic left-sided low back pain Surgical History History of amputation of great toe of both feet Status post left knee replacement History of coronary angiogram Angiogram April 2020 with 90% circumflex lesion, drug-eluting stent placed by Dr. Jerome Status post lumbar laminectomy S/P lumbar fusion DR. Shreya ZAYAS IN [place], [place] L4-L5, L5-S1 S/p bilateral carpal tunnel release History of arthroscopic surgery of elbow BILATERAL S/P hysterectomy S/P knee surgery RIGHT Family History Other CAD (coronary artery disease) Cancer Diabetes Social History Smoking and tobacco/nicotine status: current every day tobacco/nicotine user (vaping) cigarettes Packs smoked per day: 0.5 Years cigarettes smoked: 10 [ Other cigarette details: PER PATIENT REPORT] Alcohol intake: former Substance/Drug Use: never Caregiver/support person: Yes Lives independently: No Housing: [facility] Marital status: Unknown Marital status details: She and son state she is not service: No Current occupational status: unemployed Pets and animals: Yes Do you think of yourself as: Straight/Heterosexual Current gender identity: Female Vitals/I&O/Wt Last Vital Signs Temp 97.5 F L 09/02/25 15:42 Pulse 106 H 09/02/25 17:24 Resp 18 09/02/25 17:46 BP 167/81 09/02/25 17:24 Pulse Ox 95 09/02/25 17:24 O2 Del Method Room Air 09/02/25 17:24 Weight last 48 hrs Weight 90.718 kg Physical Exam Narrative: General: Moderately anxious patient awake and alert. No obvious respiratory distress. Neuro/Psych: Cranial nerves II to XII grossly intact. No obvious focal deficits. Chest: No obvious chest compression tenderness. Resp: Bilateral equal air entry; chest clinically clear. CVS: Rhythm: Regular heart rate and rhythm. No obvious murmurs appreciated. GI: Soft and non-tender abdomen. No obvious organomegaly. Extremities: Bilateral equal pulses. No obvious pitting pedal edema. Skin: Remarkably dry mucous membrane and increased skin turgor. No obvious skin rashes or significant lesions. MSK: Bilaterally missing/amputated toes noted. Otherwise, no obvious joint effusions or bony deformities noted. No apparent muscle tenderness. Data 09/02/25 15:52 09/02/25 15:52 CXR: My impression: Chest x-ray imaging personally viewed by me, and shows no obvious acute findings. Radiologist's impression: Low lung volumes with probable central vascular congestion and interstitial edema. Mild bibasilar opacities could represent atelectasis or trace infiltrate. EKG 1: My Interpretation: Done at 1:40 PM. It shows sinus tachycardia with heart rate of 109 bpm, some ST depression in aVL, with some PVCs. Otherwise, no significant ST abnormalities. Gravel Inspector Interpretation: Pending. 09/02/25 18:24 EKG 2: My Interpretation: Second EKG done at 5:[address] depression in aVL. Heart rate of 103 bpm. Otherwise, no obvious significant ST abnormality appreciated by me. Gravel Inspector Interpretation: Pending. 09/02/25 18:32 A&P Assessment and plan 1. Chest pain with high risk for cardiac etiology: 2. Dehydration determined by examination: 3. CAD (coronary artery disease): 4. PAD (peripheral artery disease): 5. 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 COPD (chronic obstructive pulmonary disease): 7. Generalized pain: 8. Essential hypertension: Plan: 1. Chest pain due to suspected cardiac etiology: Place in observation. Monitor closely on telemetry in the CSU. Trend cardiac enzymes. Repeat EKGs per protocol. Get consult from cardiology. Continue patient on aspirin and Plavix at this time. Start patient on heparin drip if troponin levels rise. Treat other symptoms empirically, continue nitroglycerin, morphine, etc. 2. Clinical dehydration: Cautiously rehydrate intravenously patient will Normal Saline, run at 80 cc/h at this time. Watch out for fluid overload. 3. Generalized pain: Likely neuropathic in etiology. Control empirically with morphine and other pain medications. Probably resume patient's neuropathic pain medications in the morning as soon as this is confirmed. 4. Essential hypertension: Blood pressure mild elevated tomorrow. I will treat with beta-blockers and as needed oral clonidine and/or IV labetalol. 5. Type 2 diabetes mellitus: Will control blood sugar with the patient further insulin, as deemed necessary. Otherwise, at this time blood sugar is not significantly better 6. Chronic pain from multiple causes: Like mentioned above, will treat empirically, and increasing patient's neuropathic pain medications as soon as they are confirmed. 7. COPD: Currently stable. Will treat empirically with as needed updrafts. Otherwise, no COPD exacerbation at this time. PDMP PDMP Reviewed: Not Reviewed Attestations Medical Necessity Statement*: Patient currently placed in observation. 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
[2025-09-02 18:17] LABS: Add Urine Microscopic? YES
[2025-09-02] MEDS: pantoprazole 40 mg SDV IVP (18:34)
--- NOTE | 2025-09-02 19:30 | PC.NURSE ---
Pt allergic to hydrocodone, IV morphine given for pain instead. Pt states it make her not breathe and break out in a rash.
--- NOTE | 2025-09-02 21:38 | ECG_ITS ---
[facility] Test Date: 2025-09-02 Pat Name: Mayra Ascencio Department: Room: 106 Gender: Female Technical Asst: : 1965 Requested By: Sanam Falcon Order Number: [id number] Rosado MD: Troy Joyce M.D. Measurements Intervals [place] Rate: 103 P: 37 MI: 200 QRS: 1 QRSD: 89 T: 117 QT: 320 QTc: 420 Interpretive Statements SINUS TACHYCARDIA LEFT VENTRICULAR HYPERTROPHY AND ST-T CHANGE [VOLTAGE CRITERIA PLUS ST/T ABNORMALITY] Compared to ECG 09/02/2025 18:04:53 Left ventricular hypertrophy now present ST (T wave) deviation now present T-wave abnormality no longer present Possible ischemia no longer present Electronically Signed On 09-05-2025 00:20:36 PHARMACY TECHNICIAN INPATIENT by Troy Joyce M.D. [id number]
[2025-09-02 22:40] LABS: Troponin 5 6HR 26.35 ng/L (0-10); Troponin 5 6HR Delta 0.35 ng/L (0-12)
[2025-09-03] VITALS (11 sets, daily range): BP systolic 97–150; BP diastolic 58–96; PULSE 77–109; RESP 16–22; TEMP 36.4–37.2; O2SAT 90–98
--- NOTE | 2025-09-03 | ECG_ITS ---
[facility] Test Date: 2025-09-03 Pat Name: Mayra Ascencio Department: Room: 106 Gender: Female Manager Of Investigations: : 1965 Requested By: Brad Lyles Order Number: [id number] Reading MD: Interpretive Statements Lung unchanged pre/post procedure; Intraprocedure shortess of breath; Symptoms resoled by discharge [id number]
[2025-09-03] MEDS: morphine 4 mg/mL SDV 1 mL IVP ×4 (03:56→20:07)
--- NOTE | 2025-09-03 06:16 | NMCV_ITS ---
NM jb perf SPECT r/s* [id number] Sonu Mayra Age: 60 Gender: F : 1965 Exam Date: 09/03/2025 06:52 Ordering Phys: Brad Lyles M.D ([email or web address]) Technologist: SUMA Novak Exam Location: [facility] Indications: CP STRESS TEST [facility] IMAGE PROTOCOL Rest/Stress 1 Lexiscan Day Radiopharmaceutical Dose (mCi) Administration Site Administered by Rest: Tc-99m 10.7 IV SUMA Lim Sestamibi Stress:Tc-99m 32.7 IV SUMA Novak Sestamijuan Rest: 03-Sep-2025 60 Discovery 630 Stress: 03-Sep-2025 30 Discovery 630 0.4mg Lexiscan. Supine position only as patient was unable to lay prone. SPECT RESULTS Technical Quality: Good Raw Data Analysis: Normal Image Corrections: No attenuation or motion correction applied Summed Stress Score: 7 Summed Rest Score: 3 Summed Difference Score: 4 PERFUSION FINDINGS There is a medium sized area of partially reversible perfusion defect seen in the inferior and inferolateral gil. This is consistent with small to medium sized area of prior infarct with medium sized area of steven-infarct ischemia in these territories. FUNCTIONAL RESULTS (calculated via Gated SPECT) Stress Image LV EF (%): 64 Stress EDV (mL):112 TID: 1.14 Stress ESV (mL):40 FUNCTIONAL FINDINGS: There is normal left ventricular systolic function. IMPRESSIONS 1. Small to medium sized area of prior infarct with medium sized area of steven- infarct ischemia seen in the inferior and inferolateral gil. 2. LV systolic function is normal Brad Lyles MD (Electronically Signed) Final Date: 03 September 2025 10:59 S
[2025-09-03 06:47] LABS: Hematocrit 29.1 % (36-47); Hemoglobin 8.20 g/dL (11.27-16.99); Mean Corpuscular HGB Conc 28.2 g/dL (30-55); Mean Corpuscular Hemoglobin 17.7 pg (27-33); Mean Corpuscular Volume 62.7 fl (85-98); Nucleated Red Blood Cells % 0 %; Platelet Count 607 10^3/cmm (157-399); Red Blood Count 4.64 10^6/uL (3.85-5.65); White Blood Count 11.23 10^3/uL (3.29-11.43)
--- NOTE | 2025-09-03 07:01 | PC.NURSE ---
Patient off the floor to [facility] at this time.
[2025-09-03 07:05] LABS: Lactic Sepsis W/Reflex 1.3 mmol/L (0.5-2.2)
[2025-09-03 07:06] LABS: Anion Gap 15.5 (5-19); Blood Urea Nitrogen 16 mg/dL (6-20); Calcium 8.5 mg/dL (8.5-10.5); Carbon Dioxide 24 mmol/L (22-29); Chloride 106 mmol/L (98-107); Glucose 127 mg/dL (65-115); Magnesium 2.2 mg/dL (1.7-2.3); Osmolality Calculated 295 mOsm/kg (285-295); Potassium 4.5 mmol/L (3.5-5.1); Sodium 141 mmol/L (136-145)
[2025-09-03 07:08] LABS: Cholesterol 169 mg/dL (0-200); HDL Cholesterol 42 mg/dL (60-100); Triglycerides 185 mg/dL (0-150)
[2025-09-03 07:45] LABS: Slide Review Slide Review Perform
[2025-09-03 07:52] LABS: Estmated Average Glucose 174; Hemoglobin A1C 7.7 % (4.0-6.0)
--- NOTE | 2025-09-03 08:38 | P.CONIM_ITS ---
<Statement entered by Brad Lyles M.D - 09/08/25 13:24> Patient was cared for in conjunction with an advanced practice practitioner.? I reviewed the chart and all pertinent data including imaging, telemetry, and laboratory results.? I discussed the patient in detail with the advanced practice practitioner.? Please see? their documentation for consult note, testing results and agreed upon plan of care for the patient. Providers/Reason For Consult 2 Consulting Physician/Specialty*: Dr Lyles, interventional cardiology Reason for Consult*: chest pain Requesting Physician: JN Dickerson Attending Physician: Nakul Granda MD History of Present Illness History of Present Illness Mayra Ascencio is a 60 year old female with past medical history of hypertension, hyperlipidemia, type 2 diabetes with insulin therapy, PAD, CAD (history of balloon angioplasty of the mid RCA in March for severe instent restenosis), seizure disorder, COPD, chronic anemia, had transmetatarsal amputation in March of this year. She presented to the emergency room yesterday with symptoms of chest pain in the left side of the chest, has been intermittently present for the last few weeks but worsened in the last few days. Troponin series: 26->25->26. EKG revealed a T wave inversion in lead I and aVL which was new, upsloping of T wave in lead III. No STEMI present. She had evaluation with Lexiscan stress test this morning. She has some mild chest pressure in the left breast currently, but was sleeping soundly when I awoke her for exam. I also note she had a fall in June onto her chest, had reproducible pain in the chest after the fall, PE ruled out with CTA. ACS felt unlikely. Review of Systems 2 Const: Denies: fever(s), chills, change in weight, fatigue or diaphoresis Eyes: Denies: change in vision ENMT: Denies: epistaxis Card: Reports: chest pain; Denies: palpitations, irregular heart rhythm, edema, syncope, pre-syncope, dyspnea on exertion, orthopnea or leg pain with exertion Resp: Denies: dyspnea, productive cough or wheezing GI: Denies: nausea, vomiting, hematemesis, hematochezia or melena : Denies: hematuria Musc: Denies: extremity swelling Xavier/Lymph: Denies: easy bruising or easy bleeding Medications/Allergies Home Medications ?Medication ?Instructions ?Recorded ?Confirmed ?Last Taken ?Type blood sugar diagnostic (Blood #50 ea 08/10/23 05/14/25 Unknown Rx Glucose Test strips) lancets #100 ea 11/28/23 05/14/25 Un known Rx albuterol sulfate 90 mcg/actuation 2 puff inhalation Q 6H PRN 01/10/24 09/02/25 11/14/24 18:00 Rx aerosol inhaler shortness of breath or wheez ing #8.5 grams blood sugar diagnostic (Blood #100 ea 01/10/24 5 Unknown Rx Glucose Test strips) blood-glucose meter #1 ea 01/10/24 05/14/25 Unkn own Rx aspirin 81 mg tablet,delayed 81 mg PO QAM #30 tabs 02/0709/02/25 03/28/25 Rx release cyclobenzaprine 10 mg tablet 10 mg PO TID PRN Muscle S pasm #90 04/16/24 09/02/25 11/14/24 18:00 Rx tabs duloxetine 60 mg capsule,delayed 60 mg PO DAILY #30 ca ps 04/16/24 09/02/25 03/28/25 Rx release epinephrine 0.3 mg/0.3 mL 0.3 mg (0.3 mL) IM Q4H PRN 0 04/16/24 09/02/25 07/23/24 Rx injection, auto-injector (EpiPen anaphylaxis #2 ea 2-Pankaj) pen needle, diabetic 31 gauge x #100 ea 04/16/2405/14 Unknown Rx 5/16 (Comfort EZ Pen [place]) pen needle, diabetic 32 gauge x #100 ea 04/16/2405/14 Unknown Rx 5/32 (Comfort EZ Pen [place]) quetiapine 200 mg tablet 200 mg PO BEDTIME #30 tabs 0 04/16/24 09/02/25 03/28/25 Rx Wheel chair #1 ea 07/19/24 05/14/25 Unkn own Rx metformin 500 mg tablet 500 mg PO BID 07/24/2409/0203/28/25 History Diabetic shoes with 3 sets of #1 ea 08/09/24 05/14/25 Unknown Rx insoles and toe filler to right furosemide 40 mg tablet 40 mg PO DAILY PRN Edema 07/1109/02/25 10/26/24 History gabapentin 300 mg capsule 300 mg PO TID 10/25/2409/0203/28/25 History insulin glargine 100 unit/mL (3 50 unit SUBCUT BID 07/1109/02/25 03/28/25 History mL) subcutaneous pen (Lantus Solostar U-100 Insulin) oxybutynin chloride 10 mg 20 mg PO DAILY 10/25/24 07/07/1103/28/25 History tablet,extended release 24 hr varenicline tartrate 1 mg tablet 1 mg PO BID 10/25/24 09/02/25 03/28/25 History dulaglutide 1.5 mg/0.5 mL 1.5 mg SUBCUT Q7D 10/27/24 0 05/14/25 03/27/25 History subcutaneous pen injector (Trulicity) ticagrelor 90 mg tablet (Brilinta) 90 mg PO BID #180 t abs 03/06/25 05/14/25 03/28/25 Rx cilostazol 100 mg tablet 100 mg PO BID 03/29/2509/0203/28/25 History dorzolamide 22.3 mg-timolol 6.8 1 drp ophthalmic (eye) BID 03/29/25 09/02/25 03/28/25 History mg/mL eye drops empagliflozin 25 mg tablet 25 mg PO DAILY 03/29/2503/28/25 History (Jardiance) neomycin 3.5 mg/g-polymyxin B See Rx Instructions .Rou te .COMPLEX 03/29/25 05/14/25 03/28/25 History 10,000 unit/g-dexameth 0.1 % eye oint pantoprazole 40 mg tablet,delayed 40 mg PO QAM PRN Aci d Reflux 03/29/25 09/02/25 Unknown History release tramadol 50 mg tablet 50 - 100 mg PO Q6H PRN Pain 03/29/25 05/14/25 Unknown History Held on 04/04/25. Instructions: Resume on 04/11/25. hold until seen by PCP atorvastatin 40 mg tablet (Lipitor) 40 mg PO QPM #30 t abs 04/04/25 09/02/25 Unknown Rx buprenorphine 2 mg-naloxone 0.5 mg 1 tab sublingual BI D PRN Pain, 04/04/25 09/02/25 Unknown Rx sublingual tablet Moderate #6 tabs lidocaine 5 % topical patch 1 patch topical DAILY PRN pain #15 04/04/25 05/14/25 Unknown Rx ea metoprolol tartrate 25 mg tablet 25 mg PO BID@0900,210 0 #60 tabs 04/04/25 09/02/25 Unknown Rx nitroglycerin 0.4 mg sublingual 0.4 mg sublingual Q5M PRN Chest 04/15/25 05/14/25 Unknown Rx tablet (Nitrostat) Pain #30 tabs ezetimibe 10 mg tablet See Rx Instructions .Route 0 05/03/25 09/02/25 Unknown Rx .COMPLEX #90 tabs losartan 50 mg tablet See Rx Instructions .Route 0 05/03/25 09/02/25 Unknown Rx .COMPLEX #90 tabs mupirocin calcium 2 % topical cream 1 applic topical B ID #15 grams 05/14/25 09/02/25 Unknown Rx Allergies Allergy/AdvReac Type Severity Reaction Status Date / Time doxycycline Allergy Mild ADR-Photose Verified 05/14/25 08:32 nsitivity fentanyl Allergy Unknown ALGY-Difficulty Verified 05/14/25 08:32 Breathing adhesive Allergy Unknown Verified 05/14/25 08:32 buprenorphine (From Suboxone) Allergy Unknown Verified 09/02/25 15:47 codeine Allergy Unknown Verified 05/14/25 08:32 hydrocodone Allergy ADR-Itching Verified 05/14/25 08:32 latex Allergy ALGY-Swell Verified 05/14/25 08:32 Lip/Tongue/Throat naloxone (From Suboxone) Allergy Unknown Verified 09/02/25 15:47 naproxen (From Naprosyn) Allergy Unknown Verified 05/14/25 08:32 nut - unspecified Allergy ALGY-Anaphy Verified 05/14/25 08:32 laxis Penicillins Allergy Unknown Verified 05/14/25 08:32 tramadol Allergy ADR-Itching Verified 05/14/25 08:32 Current Medications Generic Name Dose Route Start Last Admin Trade Name Freq PRN Reason Stop Dose Admin Enoxaparin Sodium 40 mg 09/02/25 18:15 09/02/25 18:34 Enoxaparin 40 Mg/0.4 Ml Syringe SUBCUT 40 mg Q24H YUSUF Administration Sodium Chloride 1,000 mls @ 80 mls/hr 09/02/25 18:15 09/03/25 07:13 Sodium Chloride 0.9% IV Infused .[id number] YUSUF Infusion Insulin Human Lispro 0 unit 09/02/25 21:00 09/02/25 21:54 Insulin Lispro 100 Unit/1 Ml SUBCUT Not Given BEDTIME YUSUF Protocol Morphine Sulfate 4 mg 09/02/25 18:04 09/03/25 03:56 Morphine 4 Mg/Ml Sdv 1 Ml IVP 4 mg Q2H PRN Administration SEVERE PAIN Pantoprazole Sodium 40 mg 09/02/25 18:15 09/02/25 18:34 Pantoprazole 40 Mg Sdv IVP 40 mg Q24H YUSUF Administration Quetiapine Fumarate 200 mg 09/02/25 23:45 09/03/25 02:04 Quetiapine 100 Mg Tablet PO 200 mg BEDTIME YSUUF Administration PFSH Acute 2 PFSH: Medical History Moderate aortic stenosis NSTEMI (non-ST elevated myocardial infarction) Chronic migraine without aura, intractable, with status migrainosus Hemiparesis affecting right side as late effect of cerebrovascular accident Generalized epilepsy Equinus contracture of left ankle Amputated toe of left foot Amputated toe of right foot Septic arthritis suspected Osteomyelitis of ankle or foot, right, acute Acute osteomyelitis of right foot Acute respiratory failure with hypoxia PAD (peripheral artery disease) Hammertoe of left foot Thrombocytosis, unspecified Diabetes Cellulitis Essential hypertension Depression Anemia 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 COPD (chronic obstructive pulmonary disease) Hypersensitivity pneumonitis Rheumatoid arthritis Infection of total left knee replacement Right wrist deformity History of stroke Acute exacerbation of chronic obstructive pulmonary disease (COPD) Acute encephalopathy Acute alteration in mental status Sepsis Sacral pressure ulcer Cellulitis of gluteal region Seizure disorder Hypoxemia Seizure UTI (urinary tract infection) Chronic, continuous use of opioids Seizures Acute and chronic respiratory failure with hypoxia Pneumonia Pneumonia Acute hypoxemic respiratory failure Stenosis of left internal carotid artery with cerebral infarction Diabetic foot ulcer Right arm weakness Hoarseness of voice Sepsis Numbness and tingling in both hands Urinary tract infection Chest pain Syncope Needs flu shot Carpal tunnel syndrome, right Urinary incontinence Chronic knee pain Abnormal stress test CAD (coronary artery disease) Acute exacerbation of CHF (congestive heart failure) Unstable angina COPD exacerbation Exposure to COVID-19 virus Compression fracture of L2 lumbar vertebra Right hip pain Dyspnea (HFpEF) heart failure with preserved eje ction fraction Candidiasis of vagina History of CVA (cerebrovascular accident) Elevated troponin Pericardial effusion Pressure ulcer Prosthetic joint infection Septic arthritis of knee, left Osteoarthritis of left knee History of hypoglycemic coma Obesity (BMI 35.0-39.9 without comorbidity) Peripheral sensory neuropathy due to type 2 diabetes mellitus Coronary artery disease due to type 2 diabetes mellitus Diabetes type 2, uncontrolled Neuropathy Insomnia Fibromyalgia, primary Hyperlipidemia, mixed CVA (cerebral vascular accident) Dyslipidemia Leukocytosis Chronic obstructive pulmonary disease, unspecified Vitamin D deficiency Type 2 diabetes mellitus with diabetic autonomic (poly)neuropathy Essential hypertension Encounter for long-term opiate analgesic use Opioid contract exists Current every day smoker Chronic pain of left knee Low back pain radiating to both legs Intervertebral disc disorder of lumbar region with myelopathy Lumbosacral spondylosis without myelopathy Osteoarthritis of spine at multiple levels Chronic left-sided low back pain Surgical History History of amputation of great toe of both feet Status post left knee replacement History of coronary angiogram Angiogram April 2020 with 90% circumflex lesion, drug-eluting stent placed by Dr. Jerome Status post lumbar laminectomy S/P lumbar fusion DR. Shreya ZAYAS IN [place], [place] L4-L5, L5-S1 S/p bilateral carpal tunnel release History of arthroscopic surgery of elbow BILATERAL S/P hysterectomy S/P knee surgery RIGHT Family History Other CAD (coronary artery disease) Cancer Diabetes Social History Smoking and tobacco/nicotine status: current every day tobacco/nicotine user (vaping) cigarettes Packs smoked per day: 0.5 Years cigarettes smoked: 10 [ Other cigarette details: PER PATIENT REPORT] Alcohol intake: former Substance/Drug Use: never Caregiver/support person: Yes Lives independently: No Housing: Retirement Marital status: Unknown Marital status details: She and son state she is not service: No Current occupational status: unemployed Pets and animals: Yes Do you think of yourself as: Straight/Heterosexual Current gender identity: Female Vitals/I&O/Wt Last Vital Signs Temp 98.3 F 09/03/25 03:56 Pulse 102 H 09/03/25 07:49 Resp 16 09/03/25 07:34 BP 102/58 09/03/25 07:49 Pulse Ox 96 09/03/25 07:34 O2 Del Method Room Air 09/03/25 07:34 09/02/25 09/03/25 09/03/25 22:59 06:59 14:59 Intake Total 0 / 720 720 / 720 1000 / 1000 Output Total 0 / 0 Balance 0 / 720 720 / 720 1000 / 1000 Weight last 48 hrs Weight 219 lb 2.232 oz Weight 203 lb 11.314 oz Weight 200 lb Physical Exam 2 Const: COMMON NORMALS: no acute distress and patient oriented x3 GENERAL APPEARANCE: cooperative and comfortable ORIENTATION/CONSCIOUSNESS: Yes awake, Yes oriented to person, Yes oriented to place and Yes oriented to time Chest: COMMONS NORMALS: normal inspection of the chest and normal palpation of entire chest wall CHEST: Yes Symmetrical chest wall rise Resp: COMMON NORMALS: normal respiratory effort, No retractions, No use of accessory muscles and clear to auscultation bilaterally EFFORT & INSPECTION: Yes symmetric chest movement AUSCULTATION: clear to auscultation bilaterally Cardio: COMMON NORMALS: regular rate, regular rhythm, S1 normal heart sound present, S2 normal heart sound present, No gallops present (Cardio), No clicks present (Cardio), No murmurs present (Cardio) and No rub (Cardio) RATE: r egular rate RHYTHM: regular rhythm HEART SOUNDS: S1 normal heart sound present and S2 normal heart sound present PERIPHERAL PULSES: radial pulses present Extremity: COMMON NORMALS: no pedal edema Neuro: COMMON NORMALS: patient oriented x3 and moves all extremities S ENSORIUM/ORIENTATION: Yes oriented to person, Yes oriented to place and Yes oriented to time Data 09/03/25 06:19 09/03/25 06:19 A&P Assessment and plan 1. Chest pain with high risk for cardiac etiology: 2. Acute electrocardiography changes: 3. Chest pain: 4. CAD (coronary artery disease): 5. Moderate aortic stenosis: 6. Diastolic heart failure: 7. Elevated troponin: 8. Type 2 diabetes mellitus with diabetic polyneuropathy: 9. COPD (chronic obstructive pulmonary disease): Plan: If she has ischemia in the stress test, will plan for coronary angiogram. Continue Brilinta 90mg BID, aspirin, atorvastatin 40mg daily, Jardiance 25mg daily, metoprolol tartrate 25mg BID, losartan 50mg daily. Renal function is normal. No apparent volume overload, chest xray yesterday was suggestive of possible slight central vascular congestion/interstitial edema. Will hold off diuretics for now. Afternoon update: Stress test positive in the inferior and inferolateral gil. Will plan for coronary angiogram tomorrow at 0830. NPO after midnight tonight. PDMP PDMP Reviewed: Not Reviewed Coding Level of Care Code Acute Code for Chg Fwd Diagnoses Chest pain with high risk for cardiac etiology R07.9 Acute electrocardiography changes R94.31 Chest pain R07.9 CAD (coronary artery disease) I25.10 Moderate aortic stenosis I35.0 Diastolic heart failure I50.30 Elevated troponin R79.89 Type 2 diabetes mellitus with diabetic polyneuropathy E11.42 COPD (chronic obstructive pulmonary disease) J44.9
--- NOTE | 2025-09-03 10:11 | PC.CHAP ---
Pastoral Care Encounter/Spiritual Assessment Type of Contact [] Declined nutrition counselor visit [] Patient/Family/Request visit [] Outpatient visit [] Follow-up visit [] Physician referral [] Code/Alert [x] Routine visit [] Staff referral [] Actively dying [] Patient sleeping [] Family support [] [] Out of room [] Palliative care [] [] Receiving care in room [] Pre-surgical visit [] Trauma [] Long length of stay [] ICU visit [] Other: Relational/Emotional Strength [x] Patient feels connected with others/family/visitors/staff [] Distress [] Loneliness/isolation [] Abandonment Spirituality of Patient [x] Person of Mary [] Attends Bahai of their Mary [x] Believes in Prayer [x] Reads Bible or Jewish materials [] There are Spiritual issues to be addressed Basket Mender Interventions [x] Prayer [x] Active listening [x] Non-anxious presence [x] Spiritual/emotional support [] Crisis/trauma care [] Spiritual counseling [] Bereavement support [] Provided bereavement packet [] Provided Bible/devotional materials [] Provided toy/stuffed animal, coloring book to patient or family member [] Provided Communion [] Anointing/[place] [] Salvation [x] Completed spiritual assessment [] Other: Impact on Illness or Injury [] Angry [] Fearful [] Anxious [] Often cries [] Exhaustion [] Unable to work [] Unable to attend anabaptist [] Unable to walk/stand [] Unable to read [] Unable to drive [] Unable to eat/drink [] Unable to sleep [] Unable to be with family [] Patient intubated [] Other: Summary Time spent with patient 5 min
--- NOTE | 2025-09-03 14:06 | PC.PHAR ---
Patient sttaes Her Son helps with her Medications. I could not get a hold of her son so I contacted all listed Pharmacy from all fills. [facility] Someone had Verified drugs that were incorrect. They also Verified medications that Patient had previously stated she was allergic to.
--- NOTE | 2025-09-03 14:09 | P.PN_ITS ---
Subjective 2 Subjective: Patient seen again this morning in the step-down unit. She reports feeling reasonably better today. She is currently awaiting further review by the tipping machine operator. However, she reports that she had requires plain medications to be increased. Specifically, she is requesting for the morphine to increase from 4 mg to 8 mg. She denies any difficulty breathing, diaphoresis, or any other new symptoms. Vitals/I&O/Wt Last Vital Signs Temp 97.5 F L 09/03/25 11:28 Pulse 101 H 09/03/25 11:28 Resp 20 H 09/03/25 11:38 BP 117/62 09/03/25 11:28 Pulse Ox 90 09/03/25 11:28 O2 Del Method Room Air 09/03/25 11:28 09/02/25 09/03/25 09/03/25 22:59 06:59 14:59 Intake Total 0 / 0 720 / 720 1480 / 1480 Output Total 0 / 0 Balance 0 / 0 720 / 720 1480 / 1480 Weight last 48 hrs Weight 99.4 kg Weight 92.4 kg Weight 90.718 kg Physical Exam 2 Narrative: General: Awake and alert. Cooperative. Chest/Resp: Normal respiratory chest movts; no obvious respiratory distress. CVS: Rhythm: Regular heart rate and rhythm. GI: Non-distended; No obvious organomegaly. Extremities: No obvious pitting pedal edema. Skin: Barely dehydrated. No obvious new rashes or new skin lesions. Data 09/03/25 06:19 09/03/25 06:19 Micro: Microbiology 09/02/25 17:58 Urine Culture - Preliminary Urine,Clean Catch Gram Negative Rods A&P Assessment and plan 1. Chest pain with high risk for cardiac etiology: 2. Generalized pain: 3. Dehydration determined by examination: 4. CAD (coronary artery disease): 5. Essential hypertension: 6. Diabetic peripheral neuropathy associated with type 2 diabetes mellitus: 7. COPD (chronic obstructive pulmonary disease): Plan: Currently stable patient. Cardiology seeing patient, and evaluating for possible NSTEMI. The meantime, patient otherwise remained stable. I will continue other ongoing treatment plans, including cautious rehydration, control of blood sugar with basal. Insulin, as well as as needed DuoNeb updrafts for any wheezing/difficulty breathing. Anticipate discharge tomorrow. PDMP PDMP Reviewed: Not Reviewed Attestations 2 Medical Necessity Statement*: Patient is considerately estimated to likely to require up to 1 more mid-night stay in the medical floor on inpatient status so as to hopefully optimally treat the acute medical problems and their symptoms and further control comorbidities. Coding Level of Care Code 67085 Diagnoses Chest pain with high risk for cardiac etiology R07.9 Generalized pain R52 Dehydration determined by examination E86.0 CAD (coronary artery disease) I25.10 Essential hypertension I10 Diabetic peripheral neuropathy associated with type 2 diabetes mellitus E11.42 COPD (chronic obstructive pulmonary disease) J44.9
[2025-09-03] MEDS: pantoprazole 40 mg SDV IVP (15:55)
[2025-09-04] VITALS (14 sets, daily range): BP systolic 93–183; BP diastolic 77–108; PULSE 79–110; RESP 14–30; TEMP 36.7–37.1; O2SAT 92–97; BMI 36.5
[2025-09-04] MEDS: morphine 4 mg/mL SDV 1 mL IVP ×3 (00:17→11:28)
--- NOTE | 2025-09-04 09:28 | PC.CHAP ---
Pastoral Care Encounter/Spiritual Assessment Type of Contact [] Declined junior automation engineer visit [] Patient/Family/Request visit [] Outpatient visit [] Follow-up visit [] Physician referral [] Code/Alert [x] Routine visit [] Staff referral [] Actively dying [] Patient sleeping [] Family support [] [] Out of room [] Palliative care [] [] Receiving care in room [] Pre-surgical visit [] Trauma [] Long length of stay [] ICU visit [] Other: Relational/Emotional Strength [x] Patient feels connected with others/family/visitors/staff [] Distress [] Loneliness/isolation [] Abandonment Spirituality of Patient [x] Person of Mary [] Attends Restorationist of their Mary [x] Believes in Prayer [] Reads Bible or Scientologist materials [] There are Spiritual issues to be addressed Transportation Services Representative Interventions [x] Prayer [x] Active listening [x] Non-anxious presence [x] Spiritual/emotional support [] Crisis/trauma care [] Spiritual counseling [] Bereavement support [] Provided bereavement packet [] Provided Bible/devotional materials [] Provided toy/stuffed animal, coloring book to patient or family member [] Provided Communion [] Anointing/[place] [] Salvation [x] Completed spiritual assessment [] Other: Impact on Illness or Injury [] Angry [] Fearful [] Anxious [] Often cries [] Exhaustion [] Unable to work [] Unable to attend anabaptism [] Unable to walk/stand [] Unable to read [] Unable to drive [] Unable to eat/drink [] Unable to sleep [] Unable to be with family [] Patient intubated [] Other: Summary Time spent with patient 10 min
--- NOTE | 2025-09-04 13:22 | P.PN_ITS ---
Subjective 2 Subjective: Patient is seen again this morning in the cardiac stepdown unit. She denies any new complaints. She was post get a heart cath today, but that has been postponed because of some logistic reasons. She denies any new complaints. Vitals/I&O/Wt Last Vital Signs Temp 98.0 F 09/04/25 08:00 Pulse 79 09/04/25 12:00 Resp 19 H 09/04/25 12:00 BP 158/96 09/04/25 12:00 Pulse Ox 97 09/04/25 12:00 O2 Del Method Nasal Cannula 09/04/25 08:01 O2 Flow Rate 1.5 09/04/25 08:01 09/03/25 09/04/25 09/04/25 22:59 06:59 14:59 Intake Total 240 / 1720 380 / 2100 Output Total 2500 / 2500 Balance 240 / 1720 -2120 / -400 Weight last 48 hrs Weight 99.5 kg Weight 99.4 kg Weight 92.4 kg Weight 90.718 kg Physical Exam 2 Narrative: General: Awake and alert. Cooperative. Chest/Resp: Normal respiratory chest movts; no obvious respiratory distress. CVS: Rhythm: Regular heart rate and rhythm. GI: Non-distended; No obvious organomegaly. Extremities: No obvious pitting pedal edema. Stable amputated toes stumps noted Skin: No obvious new rashes or new skin lesions. Data 09/03/25 06:19 09/03/25 06:19 Micro: Microbiology 09/02/25 17:58 Urine Culture - Final Urine,Clean Catch Escherichia coli A&P Assessment and plan 1. Elevated troponin: Awaiting cardiology eval and treatment. 2. Chest pain with high risk for cardiac etiology: See #1 problem above. 3. Generalized pain: Controlled at this time. 4. Dehydration determined by examination: Remarkably resolving. 5. Essential hypertension: Stable. 6. CAD (coronary artery disease): Otherwise stable at this time. 7. PAD (peripheral artery disease): Stable. 8. Type 2 diabetes mellitus with diabetic polyneuropathy: Stable. 9. COPD (chronic obstructive pulmonary disease): Otherwise stable. Plan: All chronic problems stable at this time. Awaiting further review/advice from cardiology. In the meantime, continue all ongoing treatment plans. PDMP PDMP Reviewed: Not Reviewed Attestations 2 Medical Necessity Statement*: Patient is considerately estimated to likely to require 1 more, at least, mid- night stay in the medical floor on inpatient status so as to hopefully optimally treat the acute medical problems and their symptoms and further control comorbidities. See assessment and plan above for more details. Coding Level of Care Code Acute Code for [facility] Fwd Diagnoses Elevated troponin R79.89 Chest pain with high risk for cardiac etiology R07.9 Generalized pain R52 Dehydration determined by examination E86.0 Essential hypertension I10 CAD (coronary artery disease) I25.10 PAD (peripheral artery disease) I73.9 Type 2 diabetes mellitus with diabetic polyneuropathy E11.42 COPD (chronic obstructive pulmonary disease) J44.9
--- NOTE | 2025-09-04 14:31 | P.PN_ITS ---
<Statement entered by Brad Lyles M.D - 09/08/25 13:29> Patient was cared for in conjunction with an advanced practice practitioner.? I reviewed the chart and all pertinent data including imaging, telemetry, and laboratory results.? I discussed the patient in detail with the advanced practice practitioner.? Please see? their documentation for progress note, testing results and agreed upon plan of care for the patient. Subjective 2 Subjective: Due to emergency, her procedure had to be delayed until tomorrow. She is stable, blood pressure controlled. Vitals/I&O/Wt Last Vital Signs Temp 98.0 F 09/04/25 08:00 Pulse 79 09/04/25 12:00 Resp 19 H 09/04/25 12:00 BP 158/96 09/04/25 12:00 Pulse Ox 97 09/04/25 12:00 O2 Del Method Nasal Cannula 09/04/25 08:01 O2 Flow Rate 1.5 09/04/25 08:01 09/03/25 09/04/25 09/04/25 22:59 06:59 14:59 Intake Total 240 / 2100 380 / 2100 1100 / 1100 Output Total 2500 / 2500 500 / 500 Balance 240 / -400 -2120 / -400 600 / 600 Weight last 48 hrs Weight 219 lb 5.759 oz Weight 219 lb 2.232 oz Weight 203 lb 11.314 oz Weight 200 lb Physical Exam 2 Const: COMMON NORMALS: no acute distress and patient oriented x3 GENERAL APPEARANCE: cooperative and comfortable ORIENTATION/CONSCIOUSNESS: Yes awake, Yes oriented to person, Yes oriented to place and Yes oriented to time Chest: COMMONS NORMALS: normal inspection of the chest and normal palpation of entire chest wall CHEST: Yes Symmetrical chest wall rise Resp: COMMON NORMALS: normal respiratory effort, No retractions, No use of accessory muscles and clear to auscultation bilaterally EFFORT & INSPECTION: Yes symmetric chest movement AUSCULTATION: clear to auscultation bilaterally Cardio: COMMON NORMALS: regular rate, regular rhythm, S1 normal heart sound present, S2 normal heart sound present, No gallops present (Cardio), No clicks present (Cardio), No murmurs present (Cardio) and No rub (Cardio) RATE: r egular rate RHYTHM: regular rhythm HEART SOUNDS: S1 normal heart sound present and S2 normal heart sound present PERIPHERAL PULSES: radial pulses present Extremity: COMMON NORMALS: no pedal edema Neuro: COMMON NORMALS: patient oriented x3 and moves all extremities S ENSORIUM/ORIENTATION: Yes oriented to person, Yes oriented to place and Yes oriented to time Data 09/03/25 06:19 09/03/25 06:19 Micro: Microbiology 09/02/25 17:58 Urine Culture - Final Urine,Clean Catch Escherichia coli A&P Assessment and plan 1. CAD (coronary artery disease): 2. Moderate aortic stenosis: 3. Diastolic heart failure: 4. Essential hypertension: 5. Type 2 diabetes mellitus with diabetic polyneuropathy: 6. Abnormal stress test: Plan: Coronary angiogram planned for 0830 tomorrow morning, NPO after midnight tonight. Continue Brilinta, aspirin, statin, Jardiance, metoprolol, losartan. BMP in the morning. PDMP PDMP Reviewed: Not Reviewed Attestations 2 Medical Necessity Statement*: abnormal stress test, ischemic workup Coding Level of Care Code Acute Code for [facility] Diagnoses CAD (coronary artery disease) I25.10 Moderate aortic stenosis I35.0 Diastolic heart failure I50.30 Essential hypertension I10 Type 2 diabetes mellitus with diabetic polyneuropathy E11.42 Abnormal stress test R94.39
[2025-09-04] MEDS: morphine ER (12 HR) 30 mg tablet 60 MG PO (16:28)
[2025-09-04] MEDS: pantoprazole 40 mg SDV IVP (16:30)
[2025-09-05] VITALS (62 sets, daily range): BP systolic 94–154; BP diastolic 55–99; PULSE 87–108; RESP 11–26; TEMP 36.6–36.8; O2SAT 83–97
--- NOTE | 2025-09-05 00:34 | PC.NURSE ---
patient refuses to keep telemetry on. She pulls it off within minutes of reattaching. Patient is very impulsive and will jump out of bed without hitting the call light.
[2025-09-05 04:31] LABS: Anion Gap 12.4 (5-19); Blood Urea Nitrogen 19 mg/dL (6-20); Calcium 9.0 mg/dL (8.5-10.5); Carbon Dioxide 27 mmol/L (22-29); Chloride 105 mmol/L (98-107); Glucose 165 mg/dL (65-115); Osmolality Calculated 296 mOsm/kg (285-295); Potassium 4.4 mmol/L (3.5-5.1); Sodium 140 mmol/L (136-145)
--- NOTE | 2025-09-05 07:18 | PC.NURSE ---
Patient resting. discussed plan for LHC today. Patient verbalized understanding and stated, I am ready, . No distress observed
--- NOTE | 2025-09-05 07:51 | W.PM.OPSUD ---
Surgery/Procedure H&P Update DATE OF PROCEDURE: September 05, 2025 DATE H&P PERFORMED: 09/03/25 H&P UPDATE INFORMATION: I have reviewed H&P completed within last 30 days, I have examined patient prior to procedure and No changes to prior documentation PREOP DIAGNOSIS: Chest pain/ abnormal stress test PRIMARY INDICATION FOR PROCEDURE: Chest pain/ abnormal stress test PLANNED PROCEDURE: Operation Date: 09/05/25 08:30 Proposed Procedures p Cardiac Catheterization(Left) - Brad Lyles M.D Possible percutaneous coronary intervention PATIENT REASSESSED PRIOR TO SEDATION, WITH NO CHANGE NOTED: Yes PHYSICAL EXAM: alert, oriented x 3, clear to auscultation bilaterally and regular rate & rhythm AIRWAY EVAL/ANESTHESIA PLAN: normal airway, ASA III, Local Anesthesia, Risks, benefits & alternatives of sedation and/or procedure discussed and Patient agrees to continue as planned ADDITIONAL INFORMATION: Moderate sedation
--- NOTE | 2025-09-05 08:28 | USR_ITS ---
PROCEDURE INFORMATION: Exam: US Duplex Bilateral Lower Extremity Arteries Exam date and time: 09/05/2025 4:48 PM Age: 60 years old Clinical indication: Condition or disease; Peripheral vascular disease; Additional info: Claudication, bilateral TECHNIQUE: Imaging protocol: Real-time ultrasound scan of the arteries of the bilateral lower extremities with 2-D pierce scale, color Doppler flow and spectral waveform analysis. Images documented and saved. COMPARISON: US soft tissue/extremity [id number] 03/13/2024 1:13 PM FINDINGS: Also, flow triphasic until popliteal. Right common femoral artery: No occlusion or significant stenosis. Normal waveform. Right superficial femoral artery: No occlusion or significant stenosis. Normal waveform. Right popliteal artery: No occlusion or significant stenosis. Right calf/foot arteries: No occlusion or significant stenosis in the visualized arteries. Normal waveforms. Dorsalis pedis artery is patent. PSV in cm/sec as follows: External iliac: 106, 123 MANAGED CARE LIAISON: 225 SFA: 297, 315, 137 Popliteal: 107 Post tib: 46 Dorsalis pedis: 66 Right FIFI 0.63. Flow triphasic onto posterior tibial. Left common femoral artery: No occlusion or significant stenosis. Normal waveform. Left superficial femoral artery: No occlusion or significant stenosis. Normal waveform. Left popliteal artery: No occlusion or significant stenosis. Normal waveform. Left calf/foot arteries: No occlusion or significant stenosis in the visualized arteries waveforms. Dorsalis pedis artery is occluded. PSV in cm/sec as follows: External iliac: 278, 251 MANAGED CARE LIAISON: 163 SFA: 144, 296, 189 Popliteal: 213 Post tib: 40 Dorsalis pedis: No significant flow. US/CV arterial duplex [facility] [id number] IMPRESSION: 1. On the right, FIFI 0.64. Elevation of peak systolic velocity at the common femoral, could suggest proximal stenosis. Also, flow triphasic until popliteal. 2. On the left, FIFI not obtained (no significant flow). Elevation of the peak systolic velocity at mid SFA, could suggest hemodynamically significant stenosis.
--- NOTE | 2025-09-05 08:29 | PC.NURSE ---
Patient off the floor to laborer operator
--- NOTE | 2025-09-05 08:30 | XACV_ITS ---
Exam Room: 2 Ht: 165 cm Wt: 99 kg BSA: 2.18 m2 Gender: Female : 1965 Any Known Allergies: Penicillins Exam Priority: Routine Procedure(s): Procedure Description: Diagnostic procedure Procedure Description: PCI procedure Procedure Description: Drug Eluting Coronary Stent Procedure Description: PTCA Procedure Description: Miscellaneous Procedure Description: ACT Procedure Description: Coronary Angiography Diagnostic Cath Status: Urgent Diagnostic Findings * INDICATION: Chest pain/ abnormal stress test. * Left Main has no significant disease. * Left Anterior Descending has mild luminal irregularities. * Circumflex has patent prior stents with mild in-stent restenosis. * Proximal Right Coronary Artery: significant 80% in-stent restenosis, USAMA: 3 flow. * Mid Right Coronary Artery: obstructive 70% in-stent restenosis, USAMA: 3 flow. * Coronary angiography shows right dominance. PCI Status: Urgent PCI Indication: Other Interventional Findings * Procedure detail: We engaged RCA with JR4 guide catheter. IV heparin was administered to maintain anticoagulation. Run-through wire was used to cross the stenosis and was put in distal vessel. We predilated the stenosis with a 2.75 x 15 mm NC balloon followed by placement of a 2.75 x 15 mm resolute Gerardo drug-eluting stent. We postdilated the stent with 3.0 x 15 mm NC balloon at high pressure. Same balloon was used to dilate the mid vessel in-stent restenosis. At this time final angiogram was performed that showed excellent stent expansion, no residual stenosis and USAMA-3 flow. Guidewire and guide catheter were removed. Patient left the Medical Editor in a stable condition.. * Proximal Right Coronary Artery: 80% stenosis treated with a MDT NC EUPHORA RX [id number] BALLOON, MDT R GERARDO 2.75X15 HAILEE, and MDT NC EUPHORA RX [id number] BALLOON. 0% residual stenosis, USAMA: 3 flow. * Mid Right Coronary Artery: 70% stenosis treated with a MDT NC EUPHORA RX [id number] BALLOON. 0% residual stenosis, USAMA: 3 flow. Conclusions 1. Severe in-stent restenosis of proximal to mid RCA s/p PCI with 1 stent of proximal RCA and balloon angioplasty of mid RCA. 2. Proximal Right Coronary Artery was treated with a Balloon, Drug Eluting Stent, and Balloon. 3. Mid Right Coronary Artery was treated with a Balloon. Recommendations * Dual antiplatelet therapy with aspirin and plavix for at least 1 year. * High intensity statin therapy. * Outpatient cardiology follow up in 2 weeks. Interventional RX Recommendation: PCI w/o planned CABG Diagnostic RX Recommendation: PCI w/o planned CABG Anticoagulation: Heparin Pressures Phase:Rest AO : 104 / 50 ( 67 ) @ 8:04:00 AM 80 / 53 ( 65 ) @ 8:05:00 AM 58 / 39 ( 47 ) @ 8:13:00 AM 104 / 70 ( 85 ) @ 8:16:00 AM 78 / 51 ( 63 ) @ 8:20:00 AM Clinical Evaluation EBL: 5mL-10mL Procedural Details Pre-Procedure Time Out. Identified patient by full name and date of as verbalized by the patient/guarantor. Does the consent match the physician's order: Yes. Accurate & Complete Informed Consent: Yes. Inpatient/Outpatient History & Physical on Chart: No. If H&P is completed, is and addenduem needed: No; If yes, is the addendum complete: N/A. Visualize and Verify Site with Patient/Guarantor: N/A. Relevant Radiology Images available: Yes. Pre-op teaching completed and patient verbalized understanding. The risks, benefits, and alternatives of sedation and/or procedure were discussed by physician. The patient agrees to continue. Procedure started. [facility] Clinical Fraility Score: 5: Mildly Frail. Medical Editor Indications: Suspected CAD. Chest Pain Symptom Assessment: Typical Angina Symptoms. Current diagnosis: Chest Pain. PERRLA. Strong, equal hand respiratory care faculty bilaterally. Lungs clear x 5 lobes. IV Site on Arrival: 20 gauge in the left anticubital. IV Fluids: 0.9% NaCl at KVO. 0 mL infused prior to bottle labeler. Oxygen started at 6liters/min via nasal canula. right groin was prepped with chloroprep then draped in the usual sterile fashion. right radial was prepped with chloroprep then draped in the usual sterile fashion. Baseline sample Acquired. HR: 0 BPM. Physician arrived. Physician scrubbed in. Immediate Pre-Procedure Time Out. Correct Patient: Yes; Correct Procedure: Yes; Correct Site: Yes; Correct Patient Position: Yes; Correct Supplies: Yes; Dried Flammable Prep: Yes; Blood Products Available: No;. Lidocaine 1% infiltrated to the right groin. Arterial access obtained with micropuncture set. A 5 [place] JL4 catheter in over wire. Current Diagnosis : Chest Pain. Multiple views taken of left coronary artery. Catheter removed over the standard wire. A 5 [place] JR4 catheter in over wire. Multiple views taken of right coronary artery. Catheter removed over the standard wire. 6 [place] JR 4 guide catheter was inserted over the wire. Runthrough guidewire was advanced through the guide catheter to lesion in the prox RCA. Inflation number : 1 A MDT NC EUPHORA RX [id number] BALLOON was prepped and advanced across the Prox RCA , then inflated to 20 FERNANDEZ for 0:16 seconds. Balloon out. Inflation Number : 2 A MDT R GERARDO 2.75X15 HAILEE -Lot Number# _[id number] EXP: 02/04/2027 was prepped and advanced across the Prox RCA. The stent was deployed at 14 FERNANDEZ for 0:13 seconds. Stent balloon out over wire. Inflation number : 1 A MDT NC EUPHORA RX [id number] BALLOON was prepped and advanced across the Mid RCA , then inflated to 16 FERNANDEZ for 0:13 seconds. Inflation number: 3 The MDT NC EUPHORA RX [id number] BALLOON was reinflated across the Prox RCA, to 16 FERNANDEZ for 0:11 seconds. Inflation number: 4 The MDT PHI EUPHORA RX [id number] BALLOON was reinflated across the Prox RCA, to 18 FERNANDEZ for 0:11 seconds. Balloon out. Results checked. ACT drawn. Results out of range high seconds. Therapeutic limits - pre-heparin administration 90-150 seconds and monitoring heparin during a vascular procedure >250 seconds. Wire out. Guide catheter out. A Right femoral angiogram was performed to determine safe placement of closure device. Physician scrubbed out. A Suture was successful obtaining hemostatsis at the Right Femoral artery insertion site. Post Procedure: Pulses reassessed and unchanged. PERRLA. Strong, equal hand respiratory care faculty bilaterally. No VTE prophylaxis required. Medication's Wasted: Heparin = 4000 units. Total IV fluids: 75 mL. Vital chart was stopped. Post-op diagnosis: Stent to RCA. Complications: None. Estimated blood loss: 5mL-10mL. Responsiveness - Normal response to verbal stimuli; alert and oriented, PERRLA. Circulation: W/N/L, pulses unchanged. Nausea/Vomiting: No. Procedure completed. ACT drawn. Results 227 seconds. Therapeutic limits - pre-heparin administration 90-150 seconds and monitoring heparin during a vascular procedure >250 seconds. Patient transferred by bed to 1st floor. Access Site Site: Right Femoral artery Sheath Size: 6 Fr Hemostasis Method: Suture Hemostasis Success: Successful Procedure Medications Start: 7:51 AM Stop: 7:51 AM Medication: Versed Amount: 1 mg Route: I.V. Start: 7:59 AM Stop: 7:59 AM Medication: Versed Amount: 1 mg Route: I.V. Start: 8:11 AM Stop: 8:11 AM Medication: Heparin Amount: 8000 units Route: I.V. Start: 8:39 AM Stop: 8:39 AM Medication: Heparin Amount: 1000 units Route: I.V. I, the attending physician, have reviewed and verified all procedure medications. Yes, all medications given per verbal order History/Risk Factors Hypertension: Yes Dyslipidemia: Yes Peripheral Arterial Disease (PAD): Yes Myocardial Infarction (DE): Yes Obesity: Yes Renal Disease: No Tobacco Use: Current/Recent(w/in 1 year) Prior Interventions PCI: Yes CABG: No Valve Surgery: No Report Signatures Finalized by Brad Lyles MD on 09/24/2025 08:23 AM
--- NOTE | 2025-09-05 09:09 | P.PCN_ITS ---
Procedure Note: Date of procedure: 09/05/25 Pre-procedure diagnosis: Chest pain/ abnormal stress test Post-procedure diagnosis: other (Severe proximal RCA instent restenosis) Procedure: Severe proximal RCA instent restenosis s/p PCI with 1 stent Performing Provider: Brad Lyles Complications: None Condition: stable Disposition: floor Coding Level of Care Code Acute Code for [facility]
--- NOTE | 2025-09-05 09:54 | PC.NURSE ---
Patient received from construction laborer at 0900 s/p [facility] with right femoral artery access. Sheath in place attached to pressure bag. No s/s of bleeding or hematoma formation. Instructed patient on site care with restrictions. Patient verbalized understanding. No distress observed.
--- NOTE | 2025-09-05 11:07 | PM.PN ---
Subjective Subjective: Patient seen this morning in the cardiac stepdown unit, shortly after she was brought back from the [facility] where they found severe proximal RCA instent restenosis s/p PCI with 1 stent. Vitals/I&O/Wt Last Vital Signs Temp 97.9 F 09/05/25 07:21 Pulse 101 H 09/05/25 10:45 Resp 26 H 09/05/25 10:45 BP 126/75 09/05/25 10:45 Pulse Ox 91 09/05/25 10:45 O2 Del Method Room Air 09/05/25 07:34 O2 Flow Rate 1.5 09/04/25 08:01 09/04/25 09/05/25 09/05/25 22:59 06:59 14:59 Intake Total 960 / 2060 240 / 2300 Output Total 7000 / 7500 550 / 8050 Balance -6040 / -5440 -310 / -5750 Weight last 48 hrs Weight 97.1 kg Weight 99.5 kg Physical Exam Narrative: General: Awake and alert. Cooperative. Chest/Resp: Normal respiratory chest movts; no obvious respiratory distress. CVS: Regular heart rate and rhythm. GI: Non-distended; No obvious organomegaly. Extremities: No obvious pitting pedal edema. Skin: No obvious new rashes or new skin lesions. Data 09/03/25 06:19 09/05/25 03:44 Micro: Microbiology 09/02/25 17:58 Urine Culture - Final Urine,Clean Catch Escherichia coli A&P Assessment and plan 1. NSTEMI (non-ST elevated myocardial infarction): Status post stent placement in right coronary artery 2. Dehydration determined by examination: Resolving 3. CAD (coronary artery disease): Otherwise stable. See above. 4. PAD (peripheral artery disease): Stable. 5. Type 2 diabetes mellitus with diabetic polyneuropathy: Stable. 6. Essential hypertension: Stable. 7. COPD (chronic obstructive pulmonary disease): No exacerbation at this time. Stable Plan: Apparently stable patient be I see a urine culture resulted grew 50,000-60,000 CFU/per mL of E. coli. This is not significant enough to sustain a diagnosis of UTI. Will take this and advisement. Await further advice from cardiogy. PDMP PDMP Reviewed: Not Reviewed Attestations Medical Necessity Statement*: Awaiting cardiology clearance. Coding Level of Care Code Acute Code for [facility] Fwd Diagnoses NSTEMI (non-ST elevated myocardial infarction) I21.4 Dehydration determined by examination E86.0 CAD (coronary artery disease) I25.10 PAD (peripheral artery disease) I73.9 Type 2 diabetes mellitus with diabetic polyneuropathy E11.42 Essential hypertension I10 COPD (chronic obstructive pulmonary disease) J44.9
[2025-09-05 11:43] LABS: Partial Thromboplastin Time 56.7 SECONDS (23.9-36.7)
--- NOTE | 2025-09-05 11:56 | PC.NURSE ---
soft restraints not applied at this time. patient is cooperating presently. Right groin remains c,d,i without s/s of bleeding or hematoma formation observed.
[2025-09-05] MEDS: pantoprazole 40 mg SDV IVP (15:41)
--- NOTE | 2025-09-05 18:57 | PC.NURSE ---
Initiated sheath removal per protocol at 1240. Hemostasis achieved immediately. Maintained pressure to site for 20min. No s/s of bleeding or hematoma formation observed. Covered site with folded 4x4s and bio-occlusive dressing. Instructed patient on site care with restrictions. Patient is currently impulsive and has trouble following direction. Informed Aurea Walters NP. patient has bed alarm in place. Site is c,d,i at this time without s/s of bleeding or hematoma formation.
[2025-09-06] VITALS (12 sets, daily range): BP systolic 83–164; BP diastolic 51–77; PULSE 97–108; RESP 16–22; TEMP 36.4–36.6; O2SAT 83–96
[2025-09-06 04:35] LABS: Blood Urea Nitrogen 15 mg/dL (6-20); Calcium 9.0 mg/dL (8.5-10.5); Carbon Dioxide 24 mmol/L (22-29); Chloride 102 mmol/L (98-107); Glucose 140 mg/dL (65-115); Osmolality Calculated 289 mOsm/kg (285-295); Sodium 138 mmol/L (136-145)
[2025-09-06 04:45] LABS: Anion Gap 16.1 (5-19); Potassium 4.1 mmol/L (3.5-5.1)
[2025-09-06 04:46] LABS: Hematocrit 28.5 % (36-47); Hemoglobin 8.40 g/dL (11.27-16.99); Mean Corpuscular HGB Conc 29.5 g/dL (30-55); Mean Corpuscular Hemoglobin 17.8 pg (27-33); Mean Corpuscular Volume 60.5 fl (85-98); Nucleated Red Blood Cells % 0.3 %; Platelet Count 579 10^3/cmm (157-399); Red Blood Count 4.71 10^6/uL (3.85-5.65); Slide Review Slide Review Perform; White Blood Count 8.58 10^3/uL (3.29-11.43)
[2025-09-06] MEDS: morphine ER (12 HR) 30 mg tablet 60 MG PO (05:20)
--- NOTE | 2025-09-06 09:27 | P.PN_ITS ---
<Statement entered by Brad Lyles M.D - 09/08/25 13:35> Patient was cared for in conjunction with an advanced practice practitioner.? I reviewed the chart and all pertinent data including imaging, telemetry, and laboratory results.? I discussed the patient in detail with the advanced practice practitioner.? Please see? their documentation for progress note, testing results and agreed upon plan of care for the patient. Subjective 2 Subjective: She has not had any complications with cath site, no chest pain. Blood pressure controlled. FIFI abnormal on arterial duplex yesterday, will plan peripheral angiogram as an outpatient. No critical limb ischemia present. Vitals/I&O/Wt Last Vital Signs Temp 97.6 F 09/06/25 07:41 Pulse 99 09/06/25 07:41 Resp 18 09/06/25 07:41 BP 131/75 09/06/25 07:41 Pulse Ox 90 09/06/25 07:41 O2 Del Method Room Air 09/06/25 07:41 O2 Flow Rate 2 09/06/25 04:00 09/05/25 09/06/25 09/06/25 22:59 06:59 14:59 Intake Total 720 / 840 Output Total 3500 / 4300 800 / 4300 Balance -3500 / -3460 -80 / -3460 Weight last 48 hrs Weight 209 lb 10.554 oz Weight 214 lb 1.102 oz Physical Exam 2 Const: COMMON NORMALS: no acute distress GENERAL APPEARANCE: cooperative ORIENTATION/CONSCIOUSNESS: Yes awake, Yes oriented to person and Yes oriented to place Chest: COMMONS NORMALS: normal inspection of the chest and normal palpation of entire chest wall CHEST: Yes Symmetrical chest wall rise Resp: COMMON NORMALS: normal respiratory effort, No retractions, No use of accessory muscles and clear to auscultation bilaterally AUSCULTATION: clear to auscultation bilaterally Cardio: COMMON NORMALS: regular rate, regular rhythm, S1 normal heart sound present, S2 normal heart sound present, No gallops present (Cardio), No clicks present (Cardio), No murmurs present (Cardio) and No rub (Cardio) RATE: r egular rate RHYTHM: regular rhythm HEART SOUNDS: S1 normal heart sound present and S2 normal heart sound present PERIPHERAL PULSES: radial pulses present positive right 2+ and femoral pulses present positive right 2+ Neuro: COMMON NORMALS: moves all extremities SENSORIUM/ORIENTATION: Yes oriented to person and Yes oriented to place Skin: WOUNDS: Yes surgical site (no hematoma palpable) Details: no odor Data 09/06/25 03:50 09/06/25 03:50 A&P Assessment and plan 1. CAD (coronary artery disease): 2. Diastolic heart failure: 3. PAD (peripheral artery disease): 4. Essential hypertension: 5. Type 2 diabetes mellitus with diabetic polyneuropathy: 6. COPD (chronic obstructive pulmonary disease): Plan: She may discharge home today if ok with hospitalist service. Continue aspirin, Brilinta, Zetia, losartan. Follow up in cardiology clinic in 2 weeks to plan for peripheral intervention. PDMP PDMP Reviewed: Not Reviewed Attestations 2 Medical Necessity Statement*: ms home Coding Level of Care Code Acute Code for [facility] Diagnoses CAD (coronary artery disease) I25.10 Diastolic heart failure I50.30 PAD (peripheral artery disease) I73.9 Essential hypertension I10 Type 2 diabetes mellitus with diabetic polyneuropathy E11.42 COPD (chronic obstructive pulmonary disease) J44.9
--- NOTE | 2025-09-06 09:58 | P.DS_ITS ---
Discharge Providers Date of Admission: 09/02/25 17:43 Date of Discharge: September 06, 2025 Attending Provider at Admission: Nakul Granda MD Attending Provider at Discharge: Nakul Granda MD Diagnoses at Discharge Discharge Diagnosis 1. NSTEMI (non-ST elevated myocardial infarction): 2. CAD (coronary artery disease): 3. PAD (peripheral artery disease): 4. Essential hypertension: 5. Type 2 diabetes mellitus with diabetic polyneuropathy, unspecified whether half-way insulin use: 6. COPD (chronic obstructive pulmonary disease): Reason for Visit Reason for Visit: chest pain & generalized body pain Brief History: Patient presented with complaint of persistent chest pain. Thought to have ACS, she was admitted to the cardiac stepdown unit. Other chronic medical problems were treated with home medications, as adjusted. Blood sugar, for instance, was controlled with basal-prandial insulin. Hospital Course Hospital Course Patient was admitted to the telemetry floor, and monitored closely. Cardiac enzymes were trended per ACS protocol, with 2 EKGs repeated as needed. The chest pain symptoms were treated empirically; nitroglycerin, morphine, etc. Cardiology was consulted. PCI revealed apparent RCA in-stent restenosis, which was stented intraoperatively. Thereafter, patient was monitored closely, while her dual antiplatelet therapy was maintained. As of today, she remains stable. Patient was therefore recommended by cardiology for discharge. Physical Exam Narrative: General: Awake and alert patient. Resp: No obvious respiratory distress or difficulty breathing. Skin: No obvious rashes or new skin lesions. All other physical findings essentially within normal limits. Discharge Data Studies Completed and Pending Completed Studies During Hospitalization Category Date Time Status Cardiac Stress Test MIBI [Sestamibi Stress Test Request Exams 09/03/25 06:16 Draft ] Routine XR chest 1V portable [id number] Stat Exams 09/02/25 15:38 Completed NM jb perf SPECT r/s* [id number] Routine Nuc Med 09/03/25 06:16 Completed US arterial duplex lower extremity bilat [CV arterial Ultrasound 09/05/25 08:28 [place] [id number]] Routine Pending at discharge Category Date Time Status FINANCIAL REPRESENTATIVE request for service Routine Exams 09/05/25 08:30 Taken Radiology Impressions Chest X-Ray 09/02/25 15:38 IMPRESSION: Low lung volumes with probable central vascular congestion and interstitial edema. Mild bibasilar opacities could represent atelectasis or trace infiltrate. Duplex Scan Lower Extremity Artery 09/05/25 08:28 1. On the right, FIFI 0.64. Elevation of peak systolic velocity at the common femoral, could suggest proximal stenosis. Also, flow triphasic until popliteal. 2. On the left, FIFI not obtained (no significant flow). Elevation of the peak systolic velocity at mid SFA, could suggest hemodynamically significant stenosis. \ Vitals Last Vital Signs Temp 97.6 F 09/06/25 07:41 Pulse 99 09/06/25 07:41 Resp 18 09/06/25 07:41 BP 131/75 09/06/25 07:41 Pulse Ox 90 09/06/25 07:41 O2 Del Method Room Air 09/06/25 07:41 O2 Flow Rate 2 09/06/25 04:00 Discharge Plan Discharge Patient Disposition: Home Condition: Stable Prescriptions: Continued (DME) Blood Glucose Test Strip See Rx Instructions .Route Qty: 100 0RF Rx Instructions: tid ac meals albuterol sulfate 90 mcg/actuation HFA aerosol inhaler 2 puff inhalation Q6H PRN (Reason: shortness of breath or wheezing) Qty: 8.5 3RF (DME) blood-glucose meter Misc See Rx Instructions .Route Qty: 1 0RF Rx Instructions: dailyAs directed duloxetine 60 mg capsule,delayed release(DR/EC) 60 mg PO DAILY Qty: 30 4RF (DME) pen needle, diabetic [Comfort EZ Pen [place]] 32 gauge x 5/32 needle See Rx Instructions .Route Qty: 100 2RF Rx Instructions: use 3times a day to inject insulin. (DME) pen needle, diabetic [Comfort EZ Pen [place]] 31 gauge x 5/16 needle See Rx Instructions .Route Qty: 100 6RF Rx Instructions: use daily with levemir quetiapine 200 mg tablet 200 mg PO BEDTIME Qty: 30 4RF epinephrine [EpiPen 2-Pankaj] 0.3 mg/0.3 mL auto-injector 0.3 mg IM Q4H PRN (Reason: anaphylaxis) Qty: 2 0RF ticagrelor [Brilinta] 90 mg tablet 90 mg PO BID Qty: 180 3RF nitroglycerin [Nitrostat] 0.4 mg tablet, sublingual 0.4 mg SUBLINGUAL Q5M PRN (Reason: Chest Pain) Qty: 30 4RF Rx Instructions: do not exceed 3 doses per episode (DME) Blood Glucose Test Strip See Rx Instructions .Route Qty: 50 3RF Rx Instructions: As directed accucheck test strips for accu check machine oxybutynin chloride 10 mg tablet extended release 24hr 20 mg PO DAILY gabapentin 300 mg capsule 300 mg PO TID insulin glargine [Lantus Solostar U-100 Insulin] 100 unit/mL (3 mL) insulin pen 50 unit SUBCUT BID furosemide 40 mg tablet 40 mg PO DAILY PRN (Reason: Edema) (DME) Wheel chair See Rx Instructions .Route .MEDSUPPLY Qty: 1 0RF Rx Instructions: As directed (DME) Diabetic shoes with 3 sets of insoles and toe filler to right See Rx Instructions .Route .MEDSUPPLY Qty: 1 0RF Rx Instructions: As directed (DME) lancets Misc See Rx Instructions .Route Qty: 100 0RF Rx Instructions: 1 tid aspirin 81 mg tablet,delayed release (DR/EC) 81 mg PO QAM Qty: 30 4RF ezetimibe 10 mg tablet See Rx Instructions .ROUTE .COMPLEX Qty: 90 4RF Dose Instruction: TAKE 1 TABLET BY MOUTH DAILY Rx Instructions: TAKE 1 TABLET BY MOUTH DAILY losartan 50 mg tablet See Rx Instructions .ROUTE .COMPLEX Qty: 90 3RF Dose Instruction: TAKE 1 TABLET BY MOUTH DAILY at 8 am Rx Instructions: TAKE 1 TABLET BY MOUTH DAILY at 8 am metformin 500 mg tablet 500 mg PO BID pantoprazole 40 mg tablet,delayed release (DR/EC) 40 mg PO QAM PRN (Reason: Acid Reflux) cilostazol 100 mg tablet 100 mg PO BID morphine 30 mg tablet extended release 60 mg PO Q12H PRN (Reason: Severe Pain (Scale Score 7-10)) Alarm Operator OK for DC: Cardiology Discharge Order = DC NOW: Discharge Order (Routine); Ordered 09/06/25 Ordered By: Nakul Granda Referrals: Sulma Davenport NP [Nurse Practitioner, Family Practice] - 09/11/25 9:00 am Aurea Walters FNP [Nurse Practitioner, Cardiology] - 09/30/25 3:30 pm Discharge Diet: Cardiac and Diabetic Discharge Activity: Resume usual activity and Increase activity as tolerated Patient Instructions: COPD, Dehydration - Adult, Heart Failure (DC), Coronary Artery Disease (DC), Peripheral Vascular Disease (DC), Hypertensive Crisis (DC), Type 2 Diabetes in the Older Adult (DC), CHF Stoplight, COPD Stoplight, Chest Pain Stoplight, Opioid Safety, Post Angiogram Home Care Instructions, Patient Portal & Carlos Instructions Activity Restrictions/Additional Instructions: Follow up with the operations logistics analyst in 2 weeks, as directed. Otherwise, follow up with your primary care provider within the next 2 to/as needed. Discharge Attestations Time Spent in Discharge Care*: less than 30 min Status at Discharge: Cognitive status at discharge: cognitively intact , Behavioral status at discharge: cooperative , Quality Metrics Clinical Quality Measures [ Acute Myocardial Infaction { Clinical Trial Participant: No; Contraindication to aspirin: None; Aspirin prescribed; Contraindication to statin: None; Statin prescribed; Contraindication to PCI: None; PCI performed; Contraindication to Fibrinolytics: Alternative treatment initiated}] Coding Level of Care Code Acute Code for [facility] Fwd Diagnoses NSTEMI (non-ST elevated myocardial infarction) I21.4 CAD (coronary artery disease) I25.110 Associated angina: with unstable angina Coronary Disease-Associated Artery/Lesion type: unspecified vessel or lesion type [place] vs. transplanted heart: [place] heart PAD (peripheral artery disease) I73.9 Essential hypertension I10 Type 2 diabetes mellitus with diabetic polyneuropathy, unspecified whether intermission coordinator insulin use E11.42 Diabetes mellitus intermission coordinator insulin use: unspecified intermission coordinator insulin use status COPD (chronic obstructive pulmonary disease) J44.9
--- NOTE | 2025-09-06 12:51 | PC.NURSE ---
discharge instructions given and explained.pt verb understanding of instructions.discharged via w/c to exit at this time.pt's sister to drive pt home.
== END 2025-09-06 12:52 | disposition home or self-care (01) ==
LOC: ER 19:10 → CSU 19:45
PROVIDERS: Emergency Medicine; Internal Medicine; Nurse Practitioner Family; Admitting Provider Family Medicine; Emergency Provider Physician Assistant; Visit Provider Family Medicine
DX: I21.4 Non-ST elevation (NSTEMI) myocardial infarction (principal); I25.10 Atherosclerotic heart disease of native coronary artery without angina pectoris; I35.0 Nonrheumatic aortic (valve) stenosis; E11.42 Type 2 diabetes mellitus with diabetic polyneuropathy; I11.0 Hypertensive heart disease with heart failure; I50.30 Unspecified diastolic (congestive) heart failure; J44.9 Chronic obstructive pulmonary disease, unspecified; Z79.84 Long term (current) use of oral hypoglycemic drugs; K21.9 Gastro-esophageal reflux disease without esophagitis; Z79.82 Long term (current) use of aspirin; Z79.4 Long term (current) use of insulin; Z95.5 Presence of coronary angioplasty implant and graft; E86.0 Dehydration; E78.5 Hyperlipidemia, unspecified; E66.9 Obesity, unspecified; Z68.34 Body mass index [BMI] 34.0-34.9, adult; G40.909 Epilepsy, unspecified, not intractable, without status epilepticus; Z79.891 Long term (current) use of opiate analgesic; F17.210 Nicotine dependence, cigarettes, uncomplicated; M06.9 Rheumatoid arthritis, unspecified
CPT/HCPCS: 36415; 36416; 71045; 78452; 80048; 80053; 80061; 81001; 82962; 83036; 83605; 83735; 83880; 84484; 85025; 85347; 85610; 85730; 87077; 87086; 87186; 93005; 93017; 93454; 93925; 96372; 96374; 96375; 96376; 99152; 99153; 99285; A9500; C1725; C1769; C1874; C1887; C1894; C9600; G0378; J1644; J1650; J1815; J2250; J2270; J2405; J2470; J2785; J3490; J7030; J9999; Q0163; Q9967

== ENCOUNTER 2025-10-04 00:52 | Inpatient (IN) | payer MEDICARE, MEDICAID, SELFPAY ==
--- OUTSIDE RECORDS SUMMARY | 2025-02-22 02:40 | XMS_ITS ---
Author Organization [facility] Address [address] [place] [address] Care Team Providers Care Heel Former Name Role Phone Alonzo Shields Unavailable REASON FOR VISIT 3 MONTH F/U Encounters Encounter Location Date Provider Diagnosis [facility] [address] [place] [id number] 02/22/2025 Alonzo Shields Plan Of Treatment No Information Progress Notes * SELENE MENDOZA BDOB: [birth year] (60 yo F)Acc No.[id number]:02/22/2025 Progress Notes Patient: SELENE LEONARDO Provider: Christy Shields MD :1965 A ge:59 Y S ex:Female Date:02/22/2025 Address:[facility] [address] [place], [place] [id number] Subjective: * Chief Complaints: * 3 MONTH F/U Billing Information: * Procedure Codes: Care Plan Details* * Electronic signature of Babak Shields MD on 10/04/2025 at 12:55 AM CALL CENTER SUPPORT REPRESENTATIVE Sign off status: Pending * Provider: Christy Shields MD Date: 0 02/22/2025 Generated for Perlita weber/Juju/Nataleesmitting on: 1 12/05/2024 12:55 AM CALL CENTER SUPPORT REPRESENTATIVE
--- OUTSIDE RECORDS SUMMARY | 2025-03-14 08:20 | XMS_ITS ---
Author Organization [facility] Address [address] [place] [address] Care Team Providers Care Manager Cardiac Cath Name Role Phone Alonzo Shields Unavailable [phone] REASON FOR VISIT CHECK UP Encounters Encounter Location Date Provider Diagnosis [facility] [address] [place] [phone] 03/14/2025 Alonzo Shields Plan Of Treatment No Information Progress Notes * SELENE MENDOZA BDOB: [birth year] (60 yo F)Acc No.[id number]:03/14/2025 Progress Notes Patient: SELENE LEONARDO Provider: Christy Shields MD :1965 A ge:59 Y S ex:Female Date:03/14/2025 Address:[facility] [id number] Subjective: * Chief Complaints: * C HECK UP Care Plan Details* * Electronic signature of Babak Shields MD on 10/04/2025 at 12:56 AM NEUROBIOLOGIST Sign off status: Pending * Provider: Christy Shields MD Date: 0 03/14/2025 Generated for Perlita weber/Juju/Federicoitting on: 12/05/2024 12:56 AM NEUROBIOLOGIST
--- OUTSIDE RECORDS SUMMARY | 2025-04-23 08:00 | XMS_ITS ---
Author Organization [facility] Address [address] [place] [address] Care Team Providers Care Kiln Packer Name Role Phone Alonzo Shields Unavailable REASON FOR VISIT 3 month f/u Encounters Encounter Location Date Provider Diagnosis [facility] [address] [place] [phone] 04/23/2025 Alonzo Shields Plan Of Treatment No Information Progress Notes * SELENE MENDOZA BDOB: [birth year] (60 yo F)Acc No.[id number]:04/23/2025 Progress Notes Patient: SELENE LEONARDO Provider: Christy Shields MD :1965 A ge:59 Y S ex:Female Date:04/23/2025 Address:[facility] [address] Subjective: * Chief Complaints: * 3 month f/u Care Plan Details* * Electronic signature of Babak Shields MD on 10/04/2025 at 12:56 AM SCROLL MACHINE OPERATOR Sign off status: Pending * Provider: Christy Shields MD Date: 0 04/23/2025 Generated for Perlita ewber/Juju/Nataleesmitting on: 12/05/2024 12:56 AM SCROLL MACHINE OPERATOR
--- OUTSIDE RECORDS SUMMARY | 2025-04-30 09:40 | XMS_ITS ---
Author Organization [facility] Address [address] [place] [address] Care Team Providers Care Auto Hiker Name Role Phone Alonzo Shields Unavailable REASON FOR VISIT pain Encounters Encounter Location Date Provider Diagnosis [facility] [address] [place] [phone] 04/30/2025 Alonzo Shields Plan Of Treatment No Information Progress Notes * SELENE MENDOZA BDOB: [birth year] (60 yo F)Acc No.[id number]:04/30/2025 Progress Notes Patient: SELENE LEONARDO Provider: Christy Shields MD :1965 A ge:59 Y S ex:Female Date:04/30/2025 Address:[address] [place] [address] [address] [place], [place] [id number] Subjective: * Chief Complaints: * P ain Billing Information: * Procedure Codes: Care Plan Details* * Electronic signature of Babak Shields MD on 10/04/2025 at 12:56 AM DOLL MAKER Sign off status: Pending * Provider: Christy Shields MD Date: 0 04/30/2025 Generated for Perlita weber/Juju/Federicoitting on: 12/05/2024 12:56 AM DOLL MAKER
--- OUTSIDE RECORDS SUMMARY | 2025-05-13 09:20 | XMS_ITS ---
Author Organization [facility] Address [address] [place] [address] Care Team Providers Care Cloth Stretcher Name Role Phone Alonzo Shields Unavailable REASON FOR VISIT PAIN Encounters Encounter Location Date Provider Diagnosis [facility] [address] [place] [phone] 05/13/2025 Alonzo Shields Plan Of Treatment No Information Progress Notes * SELENE MENDOZA BDOB: [birth year] (60 yo F)Acc No.[id number]:05/13/2025 Progress Notes Patient: SELNEE LEONARDO Provider: Christy Shields MD :1965 A ge:59 Y S ex:Female Date:05/13/2025 Address:[address] [place] [address] [address] [place], [place] [id number] Subjective: * Chief Complaints: * P AIN Billing Information: * Procedure Codes: Care Plan Details* * Electronic signature of Babak Shields MD on 10/04/2025 at 12:56 AM CHEMICAL PLANT WORKER Sign off status: Pending * Provider: Christy Shields MD Date: 0 05/13/2025 Generated for Perlita weber/Juju/Federicoitting on: 12/05/2024 12:56 AM CHEMICAL PLANT WORKER
--- OUTSIDE RECORDS SUMMARY | 2025-06-26 07:00 | XMS_ITS ---
Author Organization [facility] Address [address] [place] [address] Care Team Providers Care Accredited Farm Manager Name Role Phone Alonzo Shields Unavailable [phone] REASON FOR VISIT 3 MONTH F/U, Colorectal and Breast Cancer Screening Needed, Diabetic Eye Exam and Labs( CBC,CMP,A1C, Urine Microalbumin) Needed Medications Medication SIG (Take, Route, Frequency, Duration) Notes Start Date End Date Status Morphine Sulfate 15 MG Tablet 1 tablet as needed Orally every 8 hrs Not-Taking Ondansetron 4 MG Tablet Disintegrating 1 tablet on the tongue and allow to dissolve Orally Once a day Not-Taking levETIRAcetam 500 MG Tablet 1 tablet Orally every 12 hrs Not-Taking Metoprolol Succinate ER 25 MG Tablet Extended Release 24 Hour 1 tablet Orally Once a day Not-Taking Vancomycin HCl 1.25 GM Solution Reconstituted as directed Intravenous Not-Taking Dulaglutide 0.75 MG/0.5ML Solution Pen-injector as directed Subcutaneous Not-Taking Isosorbide Mononitrate ER 60 MG Tablet Extended Release 24 Hour 1 tablet in the morning Orally Once a day Not-Taking Levemir FlexPen 100 UNIT/ML Solution as directed Subcutaneous Not-Taking hydrOXYzine HCl 25 MG Tablet 1 tablet as needed Orally BID Not-Taking hydrOXYzine HCl 25 MG Tablet 1 tablet as needed Orally Three times a day Not-Taking Aspirin 81 81 MG Tablet Chewable 1 tablet Orally Once a day Not-Taking Atorvastatin Calcium 80 MG Tablet 1 tablet Orally Once a day Not-Taking Varenicline Tartrate 1 mg Tablet TAKE ONE TABLET BY MOUTH TWICE DAILY with GLASS of water after meals; Duration: 120 Active Buprenorphine HCl-Naloxone HCl 2-0.5 MG Tablet Sublingual 1 Sublingual TID prn; Duration: 30 days 03/25/2025 09/20/2025 Not-Taking Doxycycline Hyclate 100 MG Tablet 1/2 tablet Orally Twice a day Not-Taking Trulicity 1.5 MG/0.5ML Solution Auto-injector as directed Subcutaneous Weekly; Duration: 30 days Active SMZ-TMP DS 800-160 MG Tablet 1 tablet Orally Twice a day; Duration: 30 days Active Spiriva HandiHaler 18 MCG Capsule 1 capsule by inhaling the contents of the capsule using the HandiHaler device Inhalation Once a day; Duration: 90 days Active Pregabalin 300 MG Capsule 1 Orally BID; Duration: 30 days 03/25/2025 09/21/2025 Active QUEtiapine Fumarate 200 mg Tablet TAKE ONE TABLET BY MOUTH EVERY NIGHT AT BEDTIME; Duration: 60 Active metFORMIN HCl ER 500 MG Tablet Extended Release 24 Hour 1 tablet with evening meal Orally Twice a day Active Nitroglycerin 0.4 MG Tablet Sublingual as directed Sublingual Active Pantoprazole Sodium 40 MG Tablet Delayed Release 1 tablet Orally Once a day; Duration: 90 days Active oxyBUTYnin Chloride ER 10 mg Tablet Extended Release 24 Hour TAKE TWO TABLETS BY MOUTH ONCE DAILY; Duration: 30 Active Oxygen - Home Use 2 L NC PRN A ctive Losartan Potassium 50 MG Tablet 1 tablet Orally Once a day Active metFORMIN HCl 500 mg Tablet TAKE 1 TABLET BY MOUTH TWICE DAILY; Duration: 60 Active Jardiance 25 MG Tablet 1 tablet Orally O nce a day Active Lantus SoloStar 100 UNIT/ML Solution Pen-injector 50 units Subcutaneous Twice a day; Duration: 30 days Active Furosemide 40 mg Tablet TAKE ONE TABLET BY MOUTH EVERY DAY; Duration: 120 Active Brilinta 90 MG Tablet 1 tablet Orally Tw ice a day Active DULoxetine HCl 60 mg Capsule Delayed Release Particles TAKE ONE CAPSULE BY MOUTH EVERY DAY; Duration: 120 Active Ezetimibe 10 MG Tablet 1 tablet Orally O nce a day Active Cilostazol 100 MG Tablet 1 tablet 30 min utes before or 2 hours after breakfast and dinner Orally Twice a day Active Cyclobenzaprine HCl 10 mg Tablet TAKE ONE TABLET BY MOUTH THREE TIMES DAILY; Duration: 60 Active BD Pen - Miscellaneous as directed Active Albuterol Sulfate HFA 108 (90 Base) MCG/ACT Aerosol Solution 1 puff as needed Inhalation every 4 hrs; Duration: 90 days Active Aspirin 81 MG Tablet Delayed Release 1 tablet Orally Once a day; Duration: 90 days Active Problems Problem Type SNOMED Code ICD Code Onset Dates Problem Status W/U Status Risk Notes Problem Hysterectomy (840961225) Absence of uterus (Z90.710) 06/25/2025 Active confirmed Encounters Encounter Location Date Provider Diagnosis [facility] [address] [place] [id number] 06/26/2025 Tanideonte Shields Absence of uterus Z90.710 Assessments Encounter Date Diagnosis (ICD Code) Assessment Notes Treatment Notes Treatment Clinical Notes Section Notes 06/26/2025 Absence of uterus (ICD-10 - Z90.710) Plan Of Treatment No Information History and Physical Notes * Examination Category Sub-Category Detail Notes Category Not es CQM Exceptions Cervical Ca Screenin g Not Performed (not mapped to metric): Reason:: History of hysterectomy 20 + Years Progress Notes * SELENE MENDOZA BDOB: [birth year] (60 yo F)Acc No.[id number]:06/26/2025 Progress Notes Patient: SUKHI LEONARDOSIE Rico Provider: Christy Shields MD :1965 A ge:60 Y S ex:Female Date:06/26/2025 Address:[address] [place] [address] Subjective: * Chief Complaints: * 3 MONTH F/UColorectal and Breast Cancer Screening NeededDiabetic Eye Exam and Labs( CBC,CMP,A1C, Urine Microalbumin) Needed * Medications: T akingAlbuterol Sulfate HFA 108 (90 Base) MCG/ACT Aerosol Solution 1 puff as needed Inhalation every 4 hrs Aspirin 81 MG Tablet Delayed Release 1 tablet Orally Once a day BD Pen - Miscellaneous as directed Brilinta 90 MG Tablet 1 tablet Orally Twice a day Cilostazol 100 MG Tablet 1 tablet 30 minutes before or 2 hours after breakfast and dinner Orally Twice a day Cyclobenzaprine HCl 10 mg Tablet TAKE ONE TABLET BY MOUTH THREE TIMES DAILY DULoxetine HCl 60 mg Capsule Delayed Release Particles TAKE ONE CAPSULE BY MOUTH EVERY DAY Ezetimibe 10 MG Tablet 1 tablet Orally Once a day Furosemide 40 mg Tablet TAKE ONE TABLET BY MOUTH EVERY DAY Jardiance 25 MG Tablet 1 tablet Orally Once a day Lantus SoloStar 100 UNIT/ML Solution Pen-injector 50 units Subcutaneous Twice a day Losartan Potassium 50 MG Tablet 1 tablet Orally Once a day metFORMIN HCl 500 mg Tablet TAKE 1 TABLET BY MOUTH TWICE DAILY metFORMIN HCl ER 500 MG Tablet Extended Release 24 Hour 1 tablet with evening meal Orally Twice a day Nitroglycerin 0.4 MG Tablet Sublingual as directed Sublingual oxyBUTYnin Chloride ER 10 mg Tablet Extended Release 24 Hour TAKE TWO TABLETS BY MOUTH ONCE DAILY Oxygen - Home Use 2 L NC PRN Pantoprazole Sodium 40 MG Tablet Delayed Release 1 tablet Orally Once a day Pregabalin 300 MG Capsule 1 Orally BID , stop date 09/21/2025QUEtiapine Fumarate 200 mg Tablet TAKE ONE TABLET BY MOUTH EVERY NIGHT AT BEDTIME SMZ-TMP DS 800-160 MG Tablet 1 tablet Orally Twice a day Spiriva HandiHaler 18 MCG Capsule 1 capsule by inhaling the contents of the capsule using the HandiHaler device Inhalation Once a day Trulicity 1.5 MG/0.5ML Solution Auto-injector as directed Subcutaneous Weekly Varenicline Tartrate 1 mg Tablet TAKE ONE TABLET BY MOUTH TWICE DAILY with GLASS of water after meals Taking Albuterol Sulfate HFA 108 (90 Base) MCG/ACT Aerosol Solution 1 puff as needed Inhalation every 4 hrs Taking Aspirin 81 MG Tablet Delayed Release 1 tablet Orally Once a day Taking BD Pen - Miscellaneous as directed Taking Brilinta 90 MG Tablet 1 tablet Orally Twice a day Taking Cilostazol 100 MG Tablet 1 tablet 30 minutes before or 2 hours after breakfast and dinner Orally Twice a day Taking Cyclobenzaprine HCl 10 mg Tablet TAKE ONE TABLET BY MOUTH THREE TIMES DAILY Taking DULoxetine HCl 60 mg Capsule Delayed Release Particles TAKE ONE CAPSULE BY MOUTH EVERY DAY Taking Ezetimibe 10 MG Tablet 1 tablet Orally Once a day Taking Furosemide 40 mg Tablet TAKE ONE TABLET BY MOUTH EVERY DAY Taking Jardiance 25 MG Tablet 1 tablet Orally Once a day Taking Lantus SoloStar 100 UNIT/ML Solution Pen-injector 50 units Subcutaneous Twice a day Taking Losartan Potassium 50 MG Tablet 1 tablet Orally Once a day Taking metFORMIN HCl 500 mg Tablet TAKE 1 TABLET BY MOUTH TWICE DAILY Taking metFORMIN HCl ER 500 MG Tablet Extended Release 24 Hour 1 tablet with evening meal Orally Twice a day Taking Nitroglycerin 0.4 MG Tablet Sublingual as directed Sublingual Taking oxyBUTYnin Chloride ER 10 mg Tablet Extended Release 24 Hour TAKE TWO TABLETS BY MOUTH ONCE DAILY Taking Oxygen - Home Use 2 L NC PRN Taking Pantoprazole Sodium 40 MG Tablet Delayed Release 1 tablet Orally Once a day Taking Pregabalin 300 MG Capsule 1 Orally BID , stop date 09/21/2025Taking QUEtiapine Fumarate 200 mg Tablet TAKE ONE TABLET BY MOUTH EVERY NIGHT AT BEDTIME Taking SMZ-TMP DS 800-160 MG Tablet 1 tablet Orally Twice a day Taking Spiriva HandiHaler 18 MCG Capsule 1 capsule by inhaling the contents of the capsule using the HandiHaler device Inhalation Once a day Taking Trulicity 1.5 MG/0.5ML Solution Auto-injector as directed Subcutaneous Weekly Taking Varenicline Tartrate 1 mg Tablet TAKE ONE TABLET BY MOUTH TWICE DAILY with GLASS of water after meals Not-TakingAspirin 81 81 MG Tablet Chewable 1 tablet Orally Once a day Atorvastatin Calcium 80 MG Tablet 1 tablet Orally Once a day Buprenorphine HCl-Naloxone HCl 2-0.5 MG Tablet Sublingual 1 Sublingual TID prn , stop date 09/20/2025Doxycycline Hyclate 100 MG Tablet 1/2 tablet Orally Twice a day Dulaglutide 0.75 MG/0.5ML Solution Pen-injector as directed Subcutaneous hydrOXYzine HCl 25 MG Tablet 1 tablet as needed Orally BID hydrOXYzine HCl 25 MG Tablet 1 tablet as needed Orally Three times a day Isosorbide Mononitrate ER 60 MG Tablet Extended Release 24 Hour 1 tablet in the morning Orally Once a day Levemir FlexPen 100 UNIT/ML Solution as directed Subcutaneous levETIRAcetam 500 MG Tablet 1 tablet Orally every 12 hrs Metoprolol Succinate ER 25 MG Tablet Extended Release 24 Hour 1 tablet Orally Once a day Morphine Sulfate 15 MG Tablet 1 tablet as needed Orally every 8 hrs Ondansetron 4 MG Tablet Disintegrating 1 tablet on the tongue and allow to dissolve Orally Once a day Vancomycin HCl 1.25 GM Solution Reconstituted as directed Intravenous Not-Taking Aspirin 81 81 MG Tablet Chewable 1 tablet Orally Once a day Not-Taking Atorvastatin Calcium 80 MG Tablet 1 tablet Orally Once a day Not-Taking Buprenorphine HCl-Naloxone HCl 2-0.5 MG Tablet Sublingual 1 Sublingual TID prn , stop date 09/20/2025Not-Taking Doxycycline Hyclate 100 MG Tablet 1/2 tablet Orally Twice a day Not-Taking Dulaglutide 0.75 MG/0.5ML Solution Pen-injector as directed Subcutaneous Not-Taking hydrOXYzine HCl 25 MG Tablet 1 tablet as needed Orally BID Not-Taking hydrOXYzine HCl 25 MG Tablet 1 tablet as needed Orally Three times a day Not-Taking Isosorbide Mononitrate ER 60 MG Tablet Extended Release 24 Hour 1 tablet in the morning Orally Once a day Not-Taking Levemir FlexPen 100 UNIT/ML Solution as directed Subcutaneous Not-Taking levETIRAcetam 500 MG Tablet 1 tablet Orally every 12 hrs Not-Taking Metoprolol Succinate ER 25 MG Tablet Extended Release 24 Hour 1 tablet Orally Once a day Not-Taking Morphine Sulfate 15 MG Tablet 1 tablet as needed Orally every 8 hrs Not-Taking Ondansetron 4 MG Tablet Disintegrating 1 tablet on the tongue and allow to dissolve Orally Once a day Not-Taking Vancomycin HCl 1.25 GM Solution Reconstituted as directed Intravenous Objective: * Examination: C QM Exceptions: Cervical Ca Screening Not Performed (not mapped to metric):? Assessment: * Assessment: 1. A bsence of uterus - Z90.710 (Primary) Plan: * Preventive Medicine: Screenings: A s Listed Below * . L AST WELLNESS VISIT (if today's visit is wellness, use today's date): Date: 0 05/21/2025 B REAST CANCER SCREENING: Date of most recent screenin + years C ARE FOR OLDER ADULTS Functional Status R equires wheelchair Function Status Assessment date 0 05/21/2025 Medication review date 0 05/21/2025 Pain Assessment date 0 05/21/2025 C ERVICAL CANCER SCREENING: Date of the last PAP Smear : H ysterectomy 20+ years C OLORECTAL CANCER SCREENING: Date of last colonoscopy 5 + years D EPRESSION SCREENING: Date of most recent screenin 11/14/2024 V ACCINATIONS: Influenza vaccinations: h ave been completed yearly PHQ9 11/14/24. Billing Information: * Procedure Codes: Care Plan Details* * Electronic signature of Babak Shields MD on 10/04/2025 at 12:56 AM BUDGET SPECIALIST Sign off status: Pending * Provider: Christy Shields MD Date: 0 06/26/2025 Generated for Perlita weber/Juju/Huyen on: 1 12/05/2024 12:56 AM BUDGET SPECIALIST
--- OUTSIDE RECORDS SUMMARY | 2025-10-01 16:00 | XMS_ITS | Encounter Summary ---
Author Organization [facility] Address [address] [place] [address] Care Team Providers Care Automotive Electrical Helper Name Role Phone Keila Crespo MD Primary Care Provider [phone] Reason for Visit * Reason Comments surgery clearance For Carpal Tunnel at [facility] Encounter Details Date Type Department Care Team (Late st Contact Info) Description 10/01/2025 4:00 PM FIELD REVIEWER Office Visit [facility] [address] [phone] Keila Crespo MD [address] [phone] Chronic bilateral low back pain with bilateral sciatica (Primary Dx); Right carpal tunnel syndrome; Morbid obesity (CMS/HCC) Social History Tobacco Use Types Packs/Day Years Used Date Smoking Tobacco: Former Cigarettes 0.3 37 1 987 - 4 Smokeless Tobacco: Never Comments:Quit smoking: angel nt is poor historian, answer Yes alot to any questions. Alcohol Use Standard Drinks/Week Comments Yes 0 (1 standard drink = 0.6 oz pur e alcohol) Comments No Sex and Gender Information Value Date Recorded Sex Assigned at Not on file Legal Sex Female 11:39 AM FIELD REVIEWER Gender Identity Not on file Sexual Orientation Not on file documented as of this encounter Last Filed Vital Signs Vital Sign Reading Time Taken Comments Blood Pressure 138/84 10/01/2025 3:50 PM FIELD REVIEWER Pulse 109 10/01/2025 3:50 PM FIELD REVIEWER Temperature 36.2 C (97.2 F) 10/01/2025 3:50 PM FIELD REVIEWER Respiratory Rate 16 10/01/2025 3:50 PM FIELD REVIEWER Oxygen Saturation 99% 10/01/2025 3:50 PM FIELD REVIEWER Inhaled Oxygen Concentration - - Weight 98.2 kg (216 lb 9.6 oz) 10/01/2025 3:50 P M FIELD REVIEWER Height 165.1 cm (5' 5 ) 10/01/2025 3:50 PM FIELD REVIEWER Body Mass Index 36.04 10/01/2025 3:50 PM FIELD REVIEWER documented in this encounter Progress Notes * Keila Crespo MD - 10/01/2025 3:51 PM CST HISTORY OF PRESENT ILLNESS Mayra Ascencio, a 60 y.o. female presents with a Chief Complaint of surgery clearance (For Carpal Tunnel at [facility]) Subjective Here today for surgery optimization Right carpal tunnel 10/23/25 [facility]- Dr. Mae Needs labs, thought they were sent here Pull ups/wipes/chucks Requesting restart of her MS Contin for chronic back pain Previously on MS Contin 30 mg BID Last filled 4 months ago in [place] Patient Active Problem List Diagnosis Code Primary osteoarthritis of left knee M17.12 Obesity (BMI 30-39.9) E66.9 Chronic bilateral low back pain with bilateral sciatica M54.42, M54.41, G89.29 Fibromyalgia M79.7 Anxiety F41.9 Asthma J45.909 B12 deficiency E53.8 Bilateral carotid artery stenosis I65.23 Chronic obstructive pulmonary disease ([facility]) J44.9 Coronary atherosclerosis I25.10 Crohn's disease ([facility]) K50.90 Controlled type 2 diabetes mellitus without complication, with long-term current use of insulin ([facility]) E11.9, Z79.4 Dyslipidemia E78.5 Hypertension I10 NSTEMI (non-ST elevated myocardial infarction) ([facility]) I21.4 Obstructive sleep apnea of adult G47.33 Presence of drug coated stent in right coronary artery Z95.5 Psoriatic arthritis ([facility]) L40.50 S/P lumbar fusion Z98.1 Urinary incontinence R32 Vitamin D deficiency E55.9 Total Hysterectomy Z90.710 Wheelchair dependent Z99.3 Iron deficiency anemia secondary to inadequate dietary iron intake D50.8 REVIEW OF SYSTEMS Review of Systems Constitutional: Negative for chills and fever. HENT: Negative for sore throat. Respiratory: Negative for cough and shortness of breath. All other systems reviewed and are negative. Objective PHYSICAL EXAM BP 138/84 Pulse (!) 109 Temp 97.2 ??F (36.2 ??C) (Temporal) Resp 16 Ht 5' 5 (1.651 m) Wt98.2 kg (216 lb 9.6 oz) SpO2 99% BMI 36.04 kg/m?? Physical Exam Vitals reviewed. Constitutional: General: She is not in acute distress. Appearance: Normal appearance. HENT: Head: Normocephalic and atraumatic. Nose: Nose normal. Eyes: Extraocular Movements: Extraocular movements intact. Conjunctiva/sclera: Conjunctivae normal. Cardiovascular: Rate and Rhythm: Normal rate and regular rhythm. Heart sounds: Normal heart sounds. Pulmonary: Effort: Pulmonary effort is normal. No respiratory distress. Breath sounds: Normal breath sounds. No wheezing or rales. Abdominal: General: Bowel sounds are normal. There is no distension. Palpations: Abdomen is soft. Tenderness: There is no abdominal tenderness. Skin: General: Skin is warm and dry. Neurological: General: No focal deficit present. Mental Status: She is alert and oriented to person, place, and time. Psychiatric: Mood and Affect: Mood normal. Behavior: Behavior normal. Behavior is cooperative. No results found for any visits on 10/01/25 (from the past 24 hours). Assessment ASSESSMENT and PLAN: ICD-10-CM ICD-9-CM 1. Chronic bilateral low back pain with bilateral sciatica M54.42 724.2 morphine (MS IR) 15 mg tablet M54.41 724.3 G89.29 338.29 States RA and pain everywhere Limited [place] records Previously on MS Contin 30 mg BID Did not see any medication prior other than Suboxone which sent her ER 2. Right carpal tunnel syndrome G56.01 354.0 Optimized for surgery Labs to be ordered if request recieved from [facility] 3. Morbid obesity (CMS/HCC) E66.01 278.01 BMI 36 Cont to encourage healthly lifestyle changes Keila Crespo MD Outpatient Medications Marked as Taking for the 10/01/25 encounter (Office Visit) with Keila Crespo MD Medication Sig Dispense Refill morphine (MS IR) 15 mg tablet Take 1 Tablet (15 mg) by mouth every 8 hours as needed for Pain. Max Daily Amount: 45 mg 21 Tablet 0 Insulin [place], Disposable, (BD Ultra-Fine Mini Pen Needle) 31 gauge x 3/16 Needle Use with insulin to give daily injection. 100 Each 3 furosemide (LASIX) 40 mg tablet Take 1 Tablet (40 mg) by mouth daily. 90 Tablet 3 varenicline tartrate (CHANTIX) 1 mg Tablet Take 1 Tablet (1 mg) by mouth daily. 90 Tablet 0 oxyBUTYnin (DITROPAN XL) 10 mg Extended Release 24 hour tablet Take 1 Tablet (10 mg) by mouth daily. 90 Tablet 3 metFORMIN (GLUCOPHAGE) 500 mg tablet Take 1 Tablet (500 mg) by mouth 2 times daily with meals. 200 Tablet 3 pregabalin (LYRICA) 300 mg Capsule Take 1 Capsule (300 mg) by mouth 2 times daily. 60 Capsule 5 gabapentin (NEURONTIN) 300 mg capsule Take 1 Capsule (300 mg) by mouth 3 times daily. 270 Capsule 3 cilostazoL (PLETAL) 100 mg Tablet Take 1 Tablet (100 mg) by mouth 2 times daily. 180 Tablet 3 ferrous sulfate 325 mg (65 mg iron) tablet Take 1 Tablet (325 mg) by mouth daily. 90 Tablet 3 insulin glargine (LANTUS) 100 unit/mL injection Inject 50 Units by subcutaneous injection daily at bedtime. 3 mL 3 dulaglutide (TRULICITY) 4.5 mg/0.5 mL injection Inject 0.5 mL (4.5 mg) by subcutaneous injection every 7 days. 6 mL 3 losartan (COZAAR) 100 mg tablet Take 1 Tablet (100 mg) by mouth daily. 100 Tablet 3 midodrine (PROAMATINE) 10 mg Tablet Take 1 Tablet (10 mg) by mouth 2 times daily. 180 Tablet 3 DULoxetine (CYMBALTA) 20 mg Capsule, Delayed Release(E.C.) Take 2 Capsules (40 mg) by mouth daily. 180 Capsule 3 EPINEPHrine (EPIPEN) 0.3 mg/0.3 mL Auto-Injector Inject 0.3 mL (0.3 mg) by intramuscular injection 1 time daily as needed for Anaphylaxis. 1 Each 1 QUEtiapine (SEROquel) 200 mg tablet Take 200 mg by mouth daily at bedtime. Jardiance 25 mg tablet Take 25 mg by mouth daily. cyclobenzaprine (FLEXERIL) 10 mg tablet Take 10 mg by mouth 3 times daily. budesonide-formoteroL (SYMBICORT) 80-4.5 mcg/actuation HFA Aerosol Inhaler Take 2 Puffs by inhalation 2 times daily. acetaminophen (TYLENOL) 325 mg tablet Take 650 mg by mouth every 6 hours as needed for Pain. fluticasone propionate (FLONASE) 50 mcg/spray [place], Suspension nasal inhaler Administer 2 Sprays in each nostril daily. albuterol sulfate 90 mcg/Actuation inhaler Take 2 Puffs by inhalation every 6 hours as needed for Shortness of Breath. nitroglycerin (NITROSTAT) 0.4 mg Tablet, Sublingual Place 0.4 mg under tongue every 5 minutes as needed for Chest Pain. ticagrelor (BRILINTA) 90 mg Tablet Take by mouth. isosorbide mononitrate (IMDUR) 30 mg Extended Release 24 hour tablet Take 30 mg by mouth daily epic willow specialist. D REVIEWER documented in this encounter Plan of Treatment Upcoming Encounters Date Type Department Care Team (Late st Contact Info) Description 10/08/2025 2:20 PM FIELD REVIEWER Office Visit [address] [phone] Keila Crespo MD [address] [place] [phone] 11/08/2025 4:00 PM FIELD REVIEWER Office Visit [address] [phone] Keila Crespo MD [address] [place] [phone] documented as of this encounter Visit Diagnoses Diagnosis Chronic bilateral low back pain with bilateral sciatica- Primary Right carpal tunnel syndrome Carpal tunnel syndrome Morbid obesity (CMS/HCC) Morbid obesity documented in this encounter Care Teams Automotive Electrical Helper Relationship Specialty Start Date End Date Keila Crespo MD [address] [place] [phone] PCP - General Family Practice 07/15/25 documented as of this encounter
[2025-10-04] VITALS (24 sets, daily range): BP systolic 102–166; BP diastolic 58–86; PULSE 56–121; RESP 16–22; TEMP 36.6–37.2; O2SAT 94–100; BMI 35.7; BMI 38.3
--- OUTSIDE RECORDS SUMMARY | 2025-10-04 00:56 | XMS_ITS | Clinical Summary ---
Author Organization [facility] Address [address] [facility] Attn: Epic Prelude ADT [place] [address] Care Team Providers Care Geriatric Psychiatrist Name Role Phone Keila Crespo MD Primary Care Provider [phone] Allergies Active Allergy Reactions Criticality Noted Date Comments Acetaminophen Hives,Unknown High 04/26/2016 Adhesive Unknown 10/16/2020 Adhesive Tape-Silicones Rash Medium 07/02/2019 Clindamycin Itching Low 10/16/2020 Codeine Other (See Comments) 08/28/2018 Causes blisters Doxycycline Swelling Low 08/01/2024 Fentanyl Swelling,Unknown Medium 04/26/2016 Hydrocodone Unknown 10/16/2020 Hydrocodone-Acetaminoph en Itching Low 08/01/2024 Hydrocodone-Homatropine Unknown 04/26/2016 Hydrogen Peroxide Rash Medium 07/02/2019 Latex Swelling High 10/16/2020 Levofloxacin Rash,Unknown Medium 04/26/2016 Metronidazole Rash,Unknown Medium 04/26/2016 Naproxen Unknown 10/16/2020 Nut Flavor Anaphylaxis High 10/16/2020 Oxycodone Muscle Pain Low 10/16/2020 Peanut Oil Unknown 04/26/2016 Penicillins Rash Low 08/28/2018 Sulfa (Sulfonamide Antibiotics) Rash,Unknown Medium 04/26/2016 Sulfamethoxazole-Trimet hoprim Headache High 10/16/2020 Trimethoprim Rash,Unknown Medium 04/26/2016 Medications fluticasone propionate (FLONASE) 50 mcg/spray [place], Suspension nasal inhaler Administer 2 Sprays in each nostril daily. 08/28/20 18 Active budesonide-for moteroL (SYMBICORT) 80-4.5 mcg/actuation HFA Aerosol Inhaler Take 2 Puffs by inhalation 2 times daily. 10/16/20 Active albuterol sulfate 90 mcg/Actuation inhaler Take 2 Puffs by inhalation every 6 hours as needed for Shortness of Breath. 08/28/20 Active nitroglycerin (NITROSTAT) 0.4 mg Tablet, Sublingual Place 0.4 mg under tongue every 5 minutes as needed for Chest Pain. 08/28/20 Active acetaminophen (TYLENOL) 325 mg tablet Take 650 mg by mouth every 6 hours as needed for Pain. 10/16/20 Active ticagrelor (BRILINTA) 90 mg Tablet Take by mouth. 08/28/20 Active isosorbide mononitrate (IMDUR) 30 mg Extended Release 24 hour tablet Take 30 mg by mouth daily prevocational/rehabilitation counselor. 08/28/20 Active QUEtiapine (SEROquel) 200 mg tablet Take 200 mg by mouth daily at bedtime. Active Jardiance 25 mg tablet Take 25 mg by mouth daily. Active cyclobenzaprin e (FLEXERIL) 10 mg tablet Take 10 mg by mouth 3 times daily. Active insulin glargine (LANTUS) 100 unit/mL injection Inject 50 Units by subcutaneous injection daily at bedtime. 3 mL 07/16/20 25 Active dulaglutide (TRULICITY) 4.5 mg/0.5 mL injectionIndic ations:Control led type 2 diabetes mellitus without complication, with long-term current use of insulin ([facility]) Inject 0.5 mL (4.5 mg) by subcutaneous injection every 7 days. 6 mL 07/16/20 25 Active losartan (COZAAR) 100 mg tablet Take 1 Tablet (100 mg) by mouth daily. 100 Tablet 07/16/20 25 Active midodrine (PROAMATINE) 10 mg Tablet Take 1 Tablet (10 mg) by mouth 2 times daily. 180 Tablet 07/16/20 25 Active DULoxetine (CYMBALTA) 20 mg Capsule, Delayed Release(E.C.) Take 2 Capsules (40 mg) by mouth daily. 180 Capsule 07/16/20 25 Active EPINEPHrine (EPIPEN) 0.3 mg/0.3 mL Auto-Injector Inject 0.3 mL (0.3 mg) by intramuscular injection 1 time daily as needed for Anaphylaxis. 1 Each 1 07/16/20 25 Active ferrous sulfate 325 mg (65 mg iron) tabletIndicati ons:Microcytic anemia,Iron deficiency anemia secondary to inadequate dietary iron intake Take 1 Tablet (325 mg) by mouth daily. 90 Tablet 3 07/18/20 25 Active varenicline tartrate (CHANTIX) 1 mg TabletIndicati ons:Chronic bronchitis, unspecified chronic bronchitis type (CMS/HCC),Bila teral carotid artery stenosis Take 1 Tablet (1 mg) by mouth daily. 90 Tablet 08/15/20 25 Active oxyBUTYnin (DITROPAN XL) 10 mg Extended Release 24 hour tabletIndicati ons:OAB (overactive bladder) Take 1 Tablet (10 mg) by mouth daily. 90 Tablet 3 08/15/20 25 Active metFORMIN (GLUCOPHAGE) 500 mg tabletIndicati ons:Controlled type 2 diabetes mellitus without complication, with long-term current use of insulin ([facility]),Bila teral carotid artery stenosis Take 1 Tablet (500 mg) by mouth 2 times daily with meals. 200 Tablet 3 08/15/20 25 Active pregabalin (LYRICA) 300 mg CapsuleIndicat ions:Bilateral carotid artery stenosis Take 1 Capsule (300 mg) by mouth 2 times daily. 60 Capsule 5 08/15/20 25 Active gabapentin (NEURONTIN) 300 mg capsuleIndicat ions:Bilateral carotid artery stenosis Take 1 Capsule (300 mg) by mouth 3 times daily. 270 Capsule 3 08/15/20 25 Active cilostazoL (PLETAL) 100 mg TabletIndicati ons:NSTEMI (non-ST elevated myocardial infarction) ([facility]),Bila teral carotid artery stenosis Take 1 Tablet (100 mg) by mouth 2 times daily. 180 Tablet 3 08/15/20 25 Active Insulin [place], Disposable, (BD Ultra-Fine Mini Pen Needle) 31 gauge x 3/16 NeedleIndicati ons:Controlled type 2 diabetes mellitus without complication, with long-term current use of insulin ([facility]) Use with insulin to give daily injection. 100 Each 3 08/20/20 25 Active furosemide (LASIX) 40 mg tabletIndicati ons:Controlled type 2 diabetes mellitus without complication, with long-term current use of insulin ([facility]) Take 1 Tablet (40 mg) by mouth daily. 90 Tablet 3 08/20/20 25 Active morphine (MS IR) 15 mg tabletIndicati ons:Chronic bilateral low back pain with bilateral sciatica Take 1 Tablet (15 mg) by mouth every 8 hours as needed for Pain. Max Daily Amount: 45 mg 21 Tablet 10/01/20 Active morphine (MS CONTIN) 30 mg Controlled Release tablet Take 1 Tablet by mouth 2 times daily. 06/03/20 25 2024 Discontinued Active Problems Problem Noted Date Diagnosed Date Iron deficiency anemia secon sina to inadequate dietary iron intake 07/18/2025 Coronary atherosclerosis 07/15/2025 Crohn's disease 07/15/2025 Dyslipidemia 07/15/2025 Hypertension 07/15/2025 NSTEMI (non-ST elevated myocardial infarction) 0 07/15/2025 Overview (07/15/2025): stenting completed on 06-08-16 2.5 mm x 28 mm Promus Premier to mid RCA Obstructive sleep apnea of adult 07/15/2025 Total Hysterectomy 07/15/2025 Wheelchair dependent 07/15/2025 Bilateral carotid artery stenosis 04/22/2023 Primary osteoarthritis of left knee 08/28/2018 Obesity (BMI 30-39.9) 08/28/2018 Chronic bilateral low back pain with bilateral s ciatica 01/31/2017 Overview (07/15/2025): Last Assessment & Plan: Patient states has been on MS IR 15mg for pain management and has not been controlling pain. [facility] (including [place]) checked. No scripts for MS filled in last 12 months. Advised patient I would not continue this medication for chronic pain management Recommend referral to pain management to help better control symptoms Patient agreeable Referral ordered S/P lumbar fusion 12/10/2016 Asthma 11/05/2016 Fibromyalgia 06/25/2016 Psoriatic arthritis 06/10/2016 Presence of drug coated stent in right coronary artery 06/08/2016 Overview (07/15/2025): 2.5 mm x 28 mm Promus Premier Urinary incontinence 05/27/2016 B12 deficiency 05/25/2016 Vitamin D deficiency 05/25/2016 Controlled type 2 diabetes m ellitus without complication, with long-term current use of insulin 04/27/2016 Anxiety 10/31/2014 Chronic obstructive pulmonary disease 11/19/2011 Resolved Problems Problem Noted Date Diagnosed Date Resolved Date IDDM (insulin dependent diabetes mellitus) 08/28/2018 07/15/2025 Tobacco user 08/28/2018 07/15/2025 Tobacco dependence syndrome 01/07/2015 07/15/2025 Encounters Date Type Department Care Team Description 10/02/2025 Telephone [facility] [address] [address] Keila Crespo MD Provider Call 10/01/2025 4:00 PM PROJECT FINANCE ANALYST Office Visit [facility] [address] [address] Keila Crespo MD Chronic bilateral low back pain with bilateral sciatica (Primary Dx); Right carpal tunnel syndrome; Morbid obesity (CMS/HCC) 09/10/2025 Telephone [facility] Ambulatory Quality [address] [place] [id number] Semaj Cee MD Medical Records (Medical Records Request faxed to external provider for most recent A1C test results and date) 09/03/2025 External Device Data STL ABSTRACTION Provider, Abstract 09/02/2025 12:50 AM PROJECT FINANCE ANALYST - 09/02/2025 11:59 PM PROJECT FINANCE ANALYST Hospital Encounter [facility] Emergency Medical Services [facility] [address] [phone] Ambulance, [facility] Discharge Disposition: Short term general hospital 08/22/[address] [phone] Keila Crespo MD Information; Question 08/20/[address] [phone] Keila Crespo MD Medication Refill 08/19/2025 Orders Only [facility] [address] [address] Keila Crespo MD 08/16/[address] [address] Keila Crespo MD Anxiety (Primary Dx); Chronic bronchitis, unspecified chronic bronchitis type (CMS/HCC); Bilateral carotid artery stenosis 08/14/[address] [address] Keila Crespo MD Chronic bronchitis, unspecified chronic bronchitis type (CMS/HCC) (Primary Dx); Controlled type 2 diabetes mellitus without complication, with long-term current use of insulin (CMS/HCC); NSTEMI (non-ST elevated myocardial infarction) (CMS/HCC); Psoriatic arthritis (CMS/HCC); Primary osteoarthritis of left knee; Chronic bilateral low back pain with bilateral sciatica; Bilateral carotid artery stenosis; OAB (overactive bladder) 07/23/[address] [address] Keila Crespo MD Patient Communication 07/16/2025 External Device Data STL ABSTRACTION Provider, Abstract 07/16/2025 External Device Data ST[place] ABSTRACTION Provider, Abstract 07/16/2025 External Device Data ST[place] ABSTRACTION Provider, Abstract 07/16/2025 Results Follow-Up [address] [address] Keila Crespo MD COMPREHENSIVE METABOLIC PANEL, CBC WITH DIFFERENTIAL, LIPID PANEL, Additional followed-up results: 3 07/15/2025 1:00 PM CDT Office Visit [address] [address] Keila Crespo MD Chronic bilateral low back pain with bilateral sciatica (Primary Dx); Controlled type 2 diabetes mellitus without complication, with long-term current use of insulin (CMS/HCC); Primary hypertension; Centrilobular emphysema (CMS/HCC); Dyslipidemia; Crohn's disease with complication, unspecified gastrointestinal tract location (CMS/HCC); Psoriatic arthritis (CMS/HCC); Screening mammogram, encounter for; Screening for deficiency anemia; Total Hysterectomy; Need for influenza vaccination; Obesity (BMI 30-39.9); Wheelchair dependent 07/09/[address] [phone] Keila Crespo MD Remote Monitoring ; Patient Communication from Last 3 Months Immunizations Immunization Administration Dates Next Due INFLUENZA VACCINE TRIVALENT SPLIT VIRUS, (6 MOS UP), 0.5ML (PF), IM 07/15/2025 Social History Tobacco Use Types Packs/Day Years Used Date Smoking Tobacco: Former Cigarettes 0.3 37 1 987 - 2023 Smokeless Tobacco: Never Tobacco Cessation:Counseling Given: Not Answered Comments:Quit smoking: patient is poor historian, answer Yes alot to any questions. Alcohol Use Standard Drinks/Week Comments Yes 0 (1 standard drink = 0.6 oz pur e alcohol) Comments No Sex and Gender Information Value Date Recorded Sex Assigned at Not on file Legal Sex Female 11:39 AM PROJECT FINANCE ANALYST Gender Identity Not on file Sexual Orientation Not on file Last Filed Vital Signs Vital Sign Reading Time Taken Comments Blood Pressure 138/84 10/01/2025 3:50 PM PROJECT FINANCE ANALYST Pulse 109 10/01/2025 3:50 PM PROJECT FINANCE ANALYST Temperature 36.2 C (97.2 F) 10/01/2025 3:50 PM PROJECT FINANCE ANALYST Respiratory Rate 16 10/01/2025 3:50 PM PROJECT FINANCE ANALYST Oxygen Saturation 99% 10/01/2025 3:50 PM PROJECT FINANCE ANALYST Inhaled Oxygen Concentration - - Weight 98.2 kg (216 lb 9.6 oz) 10/01/2025 3:50 P M PROJECT FINANCE ANALYST Height 165.1 cm (5' 5 ) 10/01/2025 3:50 PM PROJECT FINANCE ANALYST Body Mass Index 36.04 10/01/2025 3:50 PM PROJECT FINANCE ANALYST Plan of Treatment Upcoming Encounters Date Type Department Care Team (Late st Contact Info) Description 10/08/2025 2:20 PM PROJECT FINANCE ANALYST Office Visit [address] [phone] Keila Crespo MD [address] [place] [phone] 11/08/2025 4:00 PM PROJECT FINANCE ANALYST Office Visit [facility] [address] [phone] Keila Crespo MD [address] [phone] Health Maintenance Due Date Last Done Comments DIABETES ANNUAL FOOT EXAM 1985 FIT/ DNA Q 3 YEARS (AUTO ORDER) 1985 FIT/FOBT Q 1 YEAR (AUTO ORDER) 1985 FLEX SIG/CT COLONOGRAPHY Q 5 YEARS (AUTO ORDER) 1985 DTAP/TDAP/TD VACCINES (1 - Tdap) 1986 HEPATITIS B VACCINES (1 of 3 - + 3-dose series) 1986 COLORECTAL CANCER SCREENING (AUTO ORDER) 2012 COLORECTAL SCREENING 2012 Colorectal Cancer Screening (AUTO ORDER) 2012 FIT-DNA Q 3 years 2012 FIT/FOBT Q 1 year 2012 Flex Sig/CT Colonography Q 5 years 2012 ZOSTER VACCINE (1 of 2) 2017 DIABETES ANNUAL RETINAL EXAM 07/12/2018 07/12/2017, 04/23/2015 Medicare Advantage ([place]) Preventative Visit/Annual Wellness Visit 10/17/2024 COVID-19 Vaccine ( season) 2025 08/20/2024, 08/12/2023, 07/16/2021, Additional history exists BREAST CANCER SCREENING 12/30/2025 08/14/2018 Post poned from 08/14/2019 (Patient Refused) DIABETES HBA1C Q 6 MONTHS 01/12/20262024, 06/08/2019, 02/12/2019, Additional history exists Colorectal Cancer Screening 07/15/2026 Postponed from 2012 (Patient Refused) DIABETES MICROALBUMIN ANNUAL SCREEN 07/15/2026 07/15/2025 DIABETES: A1C (Auto Order) 07/15/202607/15, 06/08/2019, 02/12/2019, Additional history exists LDL CHOLESTEROL ANNUAL 07/15/2026 07/15/2025 INFLUENZA VACCINE Completed 07/15/2025 DAVIAN eGFR (Auto Order) Completed 07/15/2025 , 11/16/2020, 11/10/2020, Additional history exists DAVIAN uACR (Auto Order) Completed 07/15/2025 Procedures Procedure Name Priority Date/Time Associated Diagnosis Comments MICROALBUMIN/CREATIN INE RATIO, RANDOM UR Routine 07/15/2025 2:11 PM CDT Primary hypertension MEDICATION COMPLIANCE DRUG SCREEN Routine 07/15/2025 2:11 PM CDT Chronic bilateral low back pain with bilateral sciatica IRON, TIBC, AND PERCENT SATURATION [facility] (Auto-Fax) 07/15/2025 2:05 PM CDT Microcytic anemia Iron deficiency anemia secondary to inadequate dietary iron intake HEMOGLOBIN A1C Routine 07/15/2025 2:05 PM CDT Controlled type 2 diabetes mellitus without complication, with long-term current use of insulin ([facility]) LIPID PANEL Routine 07/15/2025 2:05 PM CDT Dyslipidemia CBC WITH DIFFERENTIAL Routine 07/15/2025 2:05 PM CDT Screening for deficiency anemia COMPREHENSIVE METABOLIC PANEL Routine 07/15/2025 2:05 PM CDT Primary hypertension from Last 3 Months Results * (ABNORMAL) MEDICATION COMPLIANCE DRUG SCREEN (07/15/2025 2:11 PM CDT) Summary [facility] Comment: Prescribed Prescribed Not Prescribed Consistent Inconsistent Inconsistent Gabapentin Morphine Pregabalin BUPRENORPHINE (URINE) NEGATIVE <5 ng/mL [facility] Fentanyl NEGATIVE <0.5 ng/mL [facility] Propoxyphene, Urine NEGATIVE <300 ng/mL [facility] MDA ([employer] Mtb), Urine NEGATIVE <200 ng/mL [facility] MDMA (Ecstasy), Urine NEGATIVE <200 ng/mL [facility] MDMA Comments [facility] Comment:See LDT Notes Meprobamate, Urine NEGATIVE <1000 ng/mL [facility] Carisoprodol Comments [facility] Comment:See LDT Notes Tapentadol, Urine NEGATIVE <50 ng/mL [facility] Nortapentadol, Urine NEGATIVE <50 ng/mL [facility] Tapentadol Comments [facility] Comment:See LDT Notes O-Desmethyltramadol , Urine NEGATIVE <100 ng/mL [facility] Tramadol, Urine NEGATIVE <100 ng/mL [facility] Tramadol Comments [facility] Comment:See LDT Notes Gabapentin, Urine >812102(H) <1000 ng/mL [facility] medMATCH Gabapentin, Urine INCONSISTENT (A) [facility] Gabapentin Comments [facility] Comment:See Gabapentin Notes , LDT Notes Meperidine, Urine NEGATIVE <100 ng/mL [facility] Normeperidine, Urine NEGATIVE <100 ng/mL [facility] Meperidine Comments [facility] Comment:See LDT Notes PREGABALIN, QUANT URINE >045509(H) <1000 ng/mL [facility] medMATCH Pregabalin, Urine INCONSISTENT (A) [facility] Pregabalin Comments [facility] Comment:See Pregabalin Notes , LDT Notes Alcohol Metabolites, Urine NEGATIVE <500 ng/mL [facility] AMPHETAMINES (URINE) NEGATIVE <500 ng/mL [facility] BARBITURATES (URINE) NEGATIVE <300 ng/mL [facility] BENZODIAZEPINES (URINE) NEGATIVE <100 ng/mL [facility] COCAINE & METABOLITE (URINE) NEGATIVE <150 ng/mL [facility] 6 ACETYLMORPHINE, URINE NEGATIVE <10 ng/mL [facility] CANNABINOIDS QUAL, URINE NEGATIVE <20 ng/mL [facility] Methadone Metabolite, Urine NEGATIVE <100 ng/mL [facility] OPIATE CLASS (URINE) POSITIVE(A) <100 ng/mL [facility] Codeine, Urine NEGATIVE <50 ng/mL [facility] Hydrocodone, Urine NEGATIVE <50 ng/mL [facility] Hydromorphone, Urine NEGATIVE <50 ng/mL [facility] Morphine, Urine 8470(H) <50 ng/mL [facility] medMATCH Morphine, Urine INCONSISTENT (A) [facility] Norhydrocodone, Urine NEGATIVE <50 ng/mL [facility] OPIATES, COMMENT [facility] Comment:See Opiates Notes, L DT Notes OXYCODONE CLASS (URINE) NEGATIVE <100 ng/mL [facility] PHENCYCLIDINE, URINE NEGATIVE <25 ng/mL [facility] Creatinine, Urine 88.7 > or = 20.0 mg/dL [facility] PH 5.2 4.5 - 9.0 [facility] OXIDANT, URINE NEGATIVE <200 mcg/mL [facility] ZOLPIDEM, URINE NEGATIVE <5 ng/mL [facility] Zolipidem Metabolite, Urine NEGATIVE <5 ng/mL [facility] Zolpidem Comments [facility] Comment:See LDT Notes COMMENT TOXICOLOGY Q [facility] Comment: This drug testing is for medical treatment only. Analysis was performed as non-forensic testing and these results should be used only by healthcare providers to render diagnosis or treatment, or to monitor progress of medical conditions. Gabapentin Notes: Gabapentin detected is consistent with the use of the drug Gabapentin. Opiates Notes: Morphine detected is consistent with the use of the drug Morphine. Morphine can be a prescribed drug and is also a metabolite of Codeine and Heroin. Low concentrations of Morphine have been observed following ingestion of products containing poppy seeds. Pregabalin Notes: Pregabalin detected is consistent with the use of the drug Pregabalin. LDT Notes: Confirmation tests were developed and their analytical performance characteristics have been determined by [facility]. It has not been cleared or approved by the FDA. This assay has been validated pursuant to the CLIA regulations and is used for clinical purposes. medMATCH(R) enables providers to identify if drug use is consistent or inconsistent with a corresponding prescribed medication(s) list. Healthcare Providers needing Interpretation assistance, please contact us at [phone] ([phone]) M-F, 8am to 10pm EST Test Performed at: [facility] [address] [place] [address] Bj ARELLANO Urine URINE SPECIMEN OBTAINED BY CLEAN CATCH PROCEDURE / Unknown 07/15/2025 2:11 PM CDT 07/16/2025 3:18 AM CDT Keila Crespo MD URINE ORDERABLES Final Res ult Performing Organization Address City/[facility]/ZIP Co de Phone Number [facility] [phone] [facility] [address] [place] [address] * (ABNORMAL) MICROALBUMIN/CREATININE RATIO, RANDOM UR (07/15/2025 2:11 PM CDT) CREATININE, URINE 101 20 - 275 mg/dL [facility] ALBUMIN, URINE 5.4 See Note: mg/dL [facility] Comment: Reference Range: Reference Range Not established ALB/CREAT RATIO, URINE 53(H) <30 mg/g creat [facility] Comment: The ADA defines abnormalities in albumin excretion as follows: Albuminuria Category Result (mg/g creatinine) Normal to Mildly increased <30 Moderately increased 30-299 Severely increased > OR = 300 The ADA recommends that at least two of three specimens collected within a 3-6 month period be abnormal before considering a patient to be within a diagnostic category. Test Performed at: [facility] [id number] [place] [address] Jakub Marin MD Urine URINE SPECIMEN OBTAINED BY CLEAN CATCH PROCEDURE / Unknown 07/15/2025 2:11 PM CDT 07/16/2025 3:18 AM CDT Keila Crespo MD URINE ORDERABLES Final Res ult [facility] [phone] [facility] [address] [place] [address] * (ABNORMAL) IRON, TIBC, AND PERCENT SATURATION (07/15/2025 2:05 PM CDT) [facility] IRON 18(L) 45 - 160 mcg/dL [facility] TIBC 446 250 - 450 mcg/dL (calc) [facility] IRON % SATURATION 4(L) 16 - 45 % (calc) [facility] Comment: Test Performed at: [facility] [address] Jakub Marin MD Blood 07/15/2025 2:05 PM CDT 07/16/2025 10:47 AM CDT us Keila Crespo MD CHEMISTRY ORDERABLES Final Result [facility] [phone] [facility] [address] [address] * (ABNORMAL) CBC WITH DIFFERENTIAL (07/15/2025 2:05 PM CDT) [facility] WBC 14.9(H) 3.8 - 10.8 Thousand/u L [facility] RBC 4.83 3.80 - 5.10 Million/uL [facility] HEMOGLOBIN 8.6(L) 11.7 - 15.5 g/dL [facility] HEMATOCRIT 32.1(L) 35.0 - 45.0 % [facility] MCV 66.5(L) 80.0 - 100.0 fL [facility] MCH 17.8(L) 27.0 - 33.0 pg [facility] MCHC 26.8(L) 32.0 - 36.0 g/dL [facility] Comment: For adults, a slight decrease in the calculated MCHC value (in the range of 30 to 32 g/dL) is most likely not clinically significant; however, it should be interpreted with caution in correlation with other red cell parameters and the patient's clinical condition. RDW 17.7(H) 11.0 - 15.0 % [facility] PLATELETS 761(H) 140 - 400 Thousand/u L [facility] MPV 8.9 7.5 - 12.5 fL [facility] NEUTROPHIL ABSOLUTE 9,774(H) 1,500 - 7,800 cells/uL [facility] LYMPHOCYTE ABSOLUTE 3,442 850 - 3,900 cells/uL [facility] MONOCYTE ABSOLUTE 969(H) 200 - 950 cells/uL [facility] EOSINOPHIL ABSOLUTE 581(H) 15 - 500 cells/uL [facility] BASOPHILS ABSOLUTE 134 0 - 200 cells/uL [facility] NEUTROPHIL 65.6 % [facility] LYMPHOCYTES 23.1 % [facility] MONOCYTE 6.5 % [facility] EOSINOPHILS 3.9 % [facility] BASOPHILS 0.9 % [facility] RBC MORPHOLOGY NORMAL [facility] Comment: Anisocytosis 1 + Microcytosis 1 + Polychromasia 1 + Hypochromasia 1 + Ovalocytes 1 + Test Performed at: [facility] [address] [place] [address] Jakub Marin MD Blood 07/15/2025 2:05 PM CDT 07/15/2025 2:05 PM CDT Keila Crespo MD HEMATOLOGY ORDERABLES Madisyn l Result [facility] [phone] [facility] [address] [place], [place] [id number] * (ABNORMAL) HEMOGLOBIN A1C (07/15/2025 2:05 PM CDT) HEMOGLOBIN A1C 7.0(H) <5.7 % [facility] Comment: For someone without known diabetes, a hemoglobin A1c value of 6.5% or greater indicates that they may have diabetes and this should be confirmed with a follow-up test. For someone with known diabetes, a value <7% indicates that their diabetes is well controlled and a value greater than or equal to 7% indicates suboptimal control. A1c targets should be individualized based on duration of diabetes, age, comorbid conditions, and other considerations. Currently, no consensus exists regarding use of hemoglobin A1c for diagnosis of diabetes for children. ESTIMATED AVERAGE GLUCOSE (MG/DL) 154 mg/dL [facility] ESTIMATED AVERAGE GLUCOSE (MMOL/L) 8.5 mmol/L [facility] Comment: Test Performed at: [facility] [address] [place] [address] Jakub Marin MD Blood 07/15/2025 2:05 PM CDT 07/15/2025 2:05 PM CDT Keila Crespo MD CHEMISTRY ORDERABLES Final Result [facility] [phone] [facility] [address] [place] [address] * (ABNORMAL) LIPID PANEL (07/15/2025 2:05 PM CDT) CHOLESTEROL 165 <200 mg/dL [facility] HDL 37(L) > OR = 50 mg/dL [facility] TRIGLYCERIDE 200(H) <150 mg/dL [facility] Comment: If a non-fasting specimen was collected, consider repeat triglyceride testing on a fasting specimen if clinically indicated. Zev et al. J. of Clin. Lipidol. 2015;9:129-169. LDL CALCULATED 98 mg/dL (calc) [facility] Comment: Reference range: <100 Desirable range <100 mg/dL for primary prevention; <70 mg/dL for patients with CHD or diabetic patients with > or = 2 CHD risk factors. LDL-C is now calculated using the Jaimee calculation, which is a validated novel method providing better accuracy than the Friedewald equation in the estimation of LDL-C. John SHERMAN et al. LEONARD. 2013;310(19): 5904-8955 (http://education.Intrallect/faq/FHI111) CHOL/HDL RATIO 4.5 <5.0 (calc) [facility] NON-HDL CHOLESTEROL 128 <130 mg/dL (calc) [facility] Comment: For patients with diabetes plus 1 major ASCVD risk factor, treating to a non-HDL-C goal of <100 mg/dL (LDL-C of <70 mg/dL) is considered a therapeutic option. Test Performed at: [facility] [address] [place] [address] Jakub Marin MD Blood 07/15/2025 2:05 PM CDT 07/15/2025 2:05 PM CDT us Keila Crespo MD CHEMISTRY ORDERABLES Final Result [facility] [phone] [facility] [address] [place] [address] * (ABNORMAL) COMPREHENSIVE METABOLIC PANEL (07/15/2025 2:05 PM CDT) GLUCOSE 146(H) 65 - 99 mg/dL [facility] Comment: Fasting reference interval For someone without known diabetes, a glucose value >125 mg/dL indicates that they may have diabetes and this should be confirmed with a follow-up test. BUN 22 7 - 25 mg/dL [facility] CREATININE 1.16(H) 0.50 - 1.03 mg/dL [facility] GFR 55(L) > OR = 60 mL/min/1.7 3m2 [facility] BUN/CREAT RATIO 19 6 - 22 (calc) [facility] SODIUM 133(L) 135 - 146 mmol/L [facility] POTASSIUM 4.7 3.5 - 5.3 mmol/L [facility] CHLORIDE 101 98 - 110 mmol/L [facility] CO2 22 20 - 32 mmol/L [facility] CALCIUM 9.4 8.6 - 10.4 mg/dL [facility] TOTAL PROTEIN 7.4 6.1 - 8.1 g/dL [facility] ALBUMIN 4.3 3.6 - 5.1 g/dL [facility] GLOBULIN 3.1 1.9 - 3.7 g/dL (calc) [facility] ALBUMIN/GLOBULIN RATIO 1.4 1.0 - 2.5 (calc) [facility] BILIRUBIN TOTAL 0.3 0.2 - 1.2 mg/dL [facility] ALKALINE PHOSPHATASE 84 37 - 153 U/L [facility] AST 10 10 - 35 U/L [facility] ALT 8 6 - 29 U/L [facility] Comment: Test Performed at: [facility] [address] [address] Jakub Marin MD Blood 07/15/2025 2:05 PM CDT 07/15/2025 2:05 PM CDT Keila Crespo MD CHEMISTRY ORDERABLES Final Result [facility] [phone] [facility] [address] [phone] from Last 3 Months Insurance AETNA [facility] MEDICAID [place] Care Teams Geriatric Psychiatrist Relationship Specialty Start Date End Date Keila Crespo MD [address] [address] PCP - General Family Practice 07/15/25
--- OUTSIDE RECORDS SUMMARY | 2025-10-04 00:56 | XMS_ITS | Encounter Summary ---
Author Organization [facility] Address [address] [place] [address] Care Team Providers Care Industrial Robotics Mechanic Name Role Phone Keila Crespo MD Primary Care Provider [phone] Reason for Visit * Reason Comments Provider Call Encounter Details Date Type Department Care Team (Late st Contact Info) Description 10/02/[address] [address] Keila Crespo MD [address] [address] Provider Call Social History Tobacco Use Types Packs/Day Years Used Date Smoking Tobacco: Former Cigarettes 0.3 37 1 7 - 2023 Smokeless Tobacco: Never Comments:Quit smoking: angel nt is poor historian, answer Yes alot to any questions. Alcohol Use Standard Drinks/Week Comments Yes 0 (1 standard drink = 0.6 oz pur e alcohol) Comments No Sex and Gender Information Value Date Recorded Sex Assigned at Not on file Legal Sex Female 11:39 AM CORRESPONDENCE COORDINATOR Gender Identity Not on file Sexual Orientation Not on file documented as of this encounter Miscellaneous Notes * Telephone Encounter - Nithya Albarran - 10/02/2025 11:29 AM CST Chart notes faxed ESPONDENCE COORDINATOR * Telephone Encounter - Leticia Jean - 10/02/2025 10:40 AM CST Copied from [facility] #[id number]. Topic: [facility] Call >> Oct 02, 2025 10:39 AM Leticia Doshi wrote: Caller is requesting to speak with Clinical Care Team. Caller Name: [facility] spine Callback Number: [phone] Is the caller a Physician, Nurse Practitioner or Physician Finish Patcher? No Call Notes: Called needing surgical clearance faxed to them FAX# [phone] Is this addressing an immediate patient care need? No ESPONDENCE COORDINATOR documented in this encounter Plan of Treatment Upcoming Encounters Date Type Department Care Team (Late st Contact Info) Description 10/08/2025 2:20 PM CORRESPONDENCE COORDINATOR Office Visit [address] [address] Keila Crespo MD [address] [place] [phone] 11/08/2025 4:00 PM CORRESPONDENCE COORDINATOR Office Visit [address] [address] Keila Crespo MD [address] [place] [phone] documented as of this encounter Visit Diagnoses Not on filedocumented in this encounter Care Teams Industrial Robotics Mechanic Relationship Specialty Start Date End Date Keila Crespo MD [address] [place] [phone] PCP - General Family Practice 07/15/25 documented as of this encounter
--- NOTE | 2025-10-04 00:57 | ECG_ITS ---
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 Metal: : 1965 Requested By: Jem Valdez Order Number: [id number] Ashlee MD: CRISTHIAN TEJEDA Measurements Intervals [place] Rate: 114 P: -15 IL: 179 QRS: 39 QRSD: 95 T: 54 QT: 343 QTc: 472 Interpretive Statements SINUS TACHYCARDIA MINIMAL VOLTAGE CRITERIA FOR LVH, CONSIDER NORMAL VARIANT [MEETS CRITERIA IN ONE OF: R(aVL), S(V1), R(V5), R(V5/V6)+S(V1)] INFERIOR MYOCARDIAL INFARCTION , PROBABLY OLD [40+ ms Q WAVE AND/OR ST/T ABNORMALITY IN II/aVF] Compared to ECG 09/02/2025 21:33:48 Myocardial infarct finding now present ST (T wave) deviation no longer present Electronically Signed On 10-09-2025 20:20:07 IP TECHNOLOGY TRANSACTIONS ATTORNEY by CRISTHIAN TEJEDA [email or web address]
--- OUTSIDE RECORDS SUMMARY | 2025-10-04 00:57 | XMS_ITS | Patient Health Record ---
Author Organization [facility] Address [address] [place] [address] Care Team Providers Care Report Analyst Name Role Phone Alonzo Shields Unavailable [phone] Allergies Allergen (clinical drug ingredient) Drug/Non Drug [...] Hypertension, unspec ified type (I10) Referral Organization [facility] Referring Provider First Name [...] > 05/09/25 @ 's office- [facility], Jacey Sullivan 05/14/2025 01:18:43 PM CDT > Pt no longer under Dr. Shields's care. Referral Priority Routine Referral Appointment Date 05/09/2025 Medications Medication SIG (Take, Route, Frequency, Duration) Notes Start Date End Date Status metFORMIN HCl ER 500 MG Tablet Extended Release 24 Hour 1 tablet with evening meal Orally Twice a day Active Morphine Sulfate 15 MG Tablet 1 tablet as needed Orally every 8 hrs Not-Taking Nitroglycerin 0.4 MG Tablet Sublingual as directed Sublingual Active Ondansetron 4 MG Tablet Disintegrating 1 tablet on the tongue and allow to dissolve Orally Once a day Not-Taking Trulicity 1.5 MG/0.5ML Solution Auto-injector INJECT 1.5 MG SUBCUTANEOUSLY ONCE A WEEK; Duration: 28 Active Losartan Potassium 50 MG Tablet 1 tablet Orally Once a day Active levETIRAcetam 500 MG Tablet 1 tablet Orally every 12 hrs Not-Taking metFORMIN HCl 500 mg Tablet TAKE 1 TABLET BY MOUTH TWICE DAILY; Duration: 60 Active Metoprolol Succinate ER 25 MG Tablet Extended Release 24 Hour 1 tablet Orally Once a day Not-Taking Pantoprazole Sodium 40 MG Tablet Delayed Release 1 tablet Orally Once a day; Duration: 90 days Active oxyBUTYnin Chloride ER 10 mg Tablet Extended Release 24 Hour TAKE TWO TABLETS BY MOUTH ONCE DAILY; Duration: 30 Active Vancomycin HCl 1.25 GM Solution Reconstituted as directed Intravenous Not-Taking Oxygen - Home Use 2 L NC PRN A ctive Dulaglutide 0.75 MG/0.5ML Solution Pen-injector as directed Subcutaneous Not-Taking Jardiance 25 MG Tablet 1 tablet Orally O nce a day Active Isosorbide Mononitrate ER 60 MG Tablet Extended Release 24 Hour 1 tablet in the morning Orally Once a day Not-Taking Lantus SoloStar 100 UNIT/ML Solution Pen-injector 50 units Subcutaneous Twice a day; Duration: 30 days Active Levemir FlexPen 100 UNIT/ML Solution as directed Subcutaneous Not-Taking hydrOXYzine HCl 25 MG Tablet 1 tablet as needed Orally BID Not-Taking Furosemide 40 mg Tablet TAKE ONE TABLET BY MOUTH EVERY DAY; Duration: 120 Active hydrOXYzine HCl 25 MG Tablet 1 tablet as needed Orally Three times a day Not-Taking Aspirin 81 81 MG Tablet Chewable 1 tablet Orally Once a day Not-Taking Brilinta 90 MG Tablet 1 tablet Orally Tw ice a day Active Atorvastatin Calcium 80 MG Tablet 1 tablet Orally Once a day Not-Taking Albuterol Sulfate HFA 108 (90 Base) MCG/ACT Aerosol Solution 1 puff as needed Inhalation every 4 hrs; Duration: 90 days Active Aspirin 81 MG Tablet Delayed Release 1 tablet Orally Once a day; Duration: 90 days Active Varenicline Tartrate 1 mg Tablet TAKE ONE TABLET BY MOUTH TWICE DAILY with GLASS of water after meals; Duration: 120 Active DULoxetine HCl 60 mg Capsule Delayed [...] MOUTH THREE TIMES DAILY; Duration: 60 Active Doxycycline Hyclate 100 MG Tablet 1/2 tablet Orally Twice a day Not-Taking SMZ-TMP DS 800-160 MG Tablet 1 tablet Orally Twice a day; Duration: 30 days Active Spiriva HandiHaler 18 MCG Capsule 1 capsule by inhaling the contents of the capsule using the HandiHaler device Inhalation Once a day; Duration: 90 days Active BD Pen - Miscellaneous as directed for use with Insulin daily; Duration: 30 days DX: E11.9 Active QUEtiapine Fumarate 200 mg Tablet TAKE ONE TABLET BY MOUTH EVERY NIGHT AT BEDTIME; Duration: 60 Active Social History Tobacco Use: Social History Observation [...] Section Notes: Dep & Tob - 11/08/24 CIME Dep & Tob - 11/08/24 CIME Dep & Tob - 11/08/24 CIME Dep & Tob - 11/08/24 Dep & Tob - 11/08/24 CIME Dep & Tob - 11/08/24 Problems Problem Type SNOMED Code ICD Code Onset Dates Problem Status W/U Status Risk Notes Problem Hysterectomy (139203356) Absence of uterus (Z90.710) 06/25/20 Active confirmed Problem Mixed hyperlipidemia (947522991) Mixed hyperlipidemia (E78.2) Active confirmed Problem Chronic pain (55433457) Other chronic pain (G89.29) Active confirmed Problem Lumbar radiculopathy (329562797) Radiculopathy, lumbar region (M54.16) Active confirmed Problem Type II diabetes mellitus without complication (863337207) Type 2 diabetes mellitus without complication, unspecified whether prison insulin use (E11.9) Active confirmed Problem Essential hypertension (36446973) Hypertension, unspecified type (I10) Active confirmed Problem Carpal tunnel syndrome of left wrist (026938273914879) Carpal tunnel syndrome of left wrist (G56.02) Active confirmed Problem Peripheral vascular disease (799242542) PVD (peripheral vascular disease) (I73.9) Active confirmed Problem Multi vessel coronary artery disease (258820964) CAD, multiple vessel (I25.10) Active confirmed Vital Signs Heart Rate 122 /min 05/21/2025 Temperature 97.8 degrees Fahrenheit 05/21/2025 Height-cm 167.64 cm 05/21/2025 Oximetry 93 % 05/21/2025 Blood pressure diastolic 60 mm Hg 05/21/2025 Weight-kg 95.26 kg 05/21/2025 Height 66 in 05/21/2025 Blood pressure systolic 102 mm Hg 05/21/2025 Weight 210 lbs 05/21/2025 BMI 33.89 kg/m2 05/21/2025 Encounters Encounter Location Date Provider Diagnosis [facility] [address] [address] 05/21/2025 Alonzo Shields Encounter for Medica re annual wellness exam Z00.00 ; Hypertension, unspecified type I10 ; Type 2 diabetes mellitus without complication, unspecified whether watermaster insulin use E11.9 ; Other chronic pain G89.29 and Radiculopathy, lumbar region M54.16 [facility] [address] [address] 03/25/2025 Alonzo Shields Hypertension, unspecified type I10 ; Type 2 diabetes mellitus without complication, unspecified whether watermaster insulin use E11.9 ; PVD (peripheral vascular disease) I73.9 ; Carpal tunnel syndrome of left wrist G56.02 and Depression screen Z13.31 [facility] [address] [address] 01/22/2025 Alonzo Shields Hypertension, unspecified type I10 ; PVD (peripheral vascular disease) I73.9 ; CAD, multiple vessel I25.10 ; Mixed hyperlipidemia E78.2 and Depression screen Z13.31 [facility] [address] [address] 12/18/2024 Alonzo Shields PVD (peripheral vascular disease) I73.9 ; Hypertension, unspecified type I10 ; Type 2 diabetes mellitus without complication, unspecified whether prison insulin use E11.9 and Depression screen Z13.31 [facility] [address] [address] 04/12/2025 Alonzo Shields Depression screen Z13.31 ; Chemotherapy follow-up examination Z09 ; Hypertension, unspecified type I10 ; Type 2 diabetes mellitus without complication, unspecified whether prison insulin use E11.9 ; CAD, multiple vessel I25.10 ; PVD (peripheral vascular disease) I73.9 ; Radiculopathy, lumbar region M54.16 and Other chronic pain G89.29 [facility] [address] [address] 11/08/2024 Alonzo Shields Type 2 diabetes mellitus without complication, unspecified whether watermaster insulin use E11.9 ; PVD (peripheral vascular disease) I73.9 ; CAD, multiple vessel I25.10 ; Mixed hyperlipidemia E78.2 ; Hypertension, unspecified type I10 and Depression screen Z13.31 [facility] [address] [place] [phone] 06/26/2025 Alonzo Shields [facility] [address] [place] [phone] 05/10/2025 Alonzo Shields Radiculopathy, lumba r region M54.16 [facility] [address] [place] [phone] 02/08/2025 Alonzo Shields [facility] [address] [place] [phone] 01/24/2025 Alonzo Shields Bilateral hand numbness R20.0 [facility] [address] [place] [phone] 12/12/2024 Alonzo Shields [facility] [address] [place] [phone] 12/11/2024 Alonzo Shields [facility] [address] [place] [phone] 07/23/2025 Alonzo Shields Assessments Encounter Date Diagnosis (ICD Code) Assessment Notes Treatment Notes Treatment Clinical Notes Section Notes 11/08/2024 Type 2 diabetes mellitus without complication, unspecified whether watermaster insulin use (ICD-10 - E11.9) 11/08/2024 PVD (peripheral vascular disease) (ICD-10 - I73.9) 12/18/2024 Hypertension, unspecified type (ICD-10 - I10) 12/18/2024 PVD (peripheral vascular disease) (ICD-10 - I73.9) 01/24/2025 Bilateral hand numbness (ICD-10 - R20.0) 03/25/2025 Type 2 diabetes mellitus without complication, unspecified whether watermaster insulin use (ICD-10 - E11.9) 03/25/2025 Hypertension, unspecified type (ICD-10 - I10) 01/22/2025 Hypertension, unspecified type (ICD-10 - I10) 01/22/2025 PVD (peripheral vascular disease) (ICD-10 - I73.9) 04/12/2025 Chemotherapy follow-up examination (ICD-10 - Z09) 05/10/2025 Radiculopathy, lumbar region (ICD-10 - M54.16) 04/12/2025 Depression screen (ICD-10 - Z13.31) 05/21/2025 Encounter for Medicare annual wellness exam (ICD-10 - Z00.00) Please schedule your next AWV in 1 year. 05/21/2025 Hypertension, unspecified type (ICD-10 - I10) Pt advised to take meds as prescribed, exercise as tolerated, and monitor BP as directed. If symptoms develop, parameters out of range, or any distress contact clinic or utilize ER. 01/22/2025 CAD, multiple vessel (ICD-10 - I25.10) 04/12/2025 Hypertension, unspecified type (ICD-10 - I10) 03/25/2025 PVD (peripheral vascular disease) (ICD-10 - I73.9) 11/08/2024 CAD, multiple vessel (ICD-10 - I25.10) 12/18/2024 Type 2 diabetes mellitus without complication, unspecified whether prison insulin use (ICD-10 - E11.9) 11/08/2024 Mixed hyperlipidemia (ICD-10 - E78.2) 12/18/2024 Depression screen (ICD-10 - Z13.31) 01/22/2025 Mixed hyperlipidemia (ICD-10 - E78.2) 03/25/2025 Carpal tunnel syndrome of left wrist (ICD-10 - G56.02) 04/12/2025 Type 2 diabetes mellitus without complication, unspecified whether watermaster insulin use (ICD-10 - E11.9) 05/21/2025 Type 2 diabetes mellitus without complication, unspecified whether watermaster insulin use (ICD-10 - E11.9) Pt advised to take medications as prescribed, follow an ADA diet, exercise as tolerated, monitor blood glucose daily as directed. If any new or worsening symptoms appear contact the clinic or any distress utilize the ER. 04/12/2025 CAD, multiple vessel (ICD-10 - I25.10) 03/25/2025 Depression screen (ICD-10 - Z13.31) 01/22/2025 Depression screen (ICD-10 - Z13.31) 05/21/2025 Other chronic pain (ICD-10 - G89.29) 11/08/2024 Hypertension, unspecified type (ICD-10 - I10) 11/08/2024 Depression screen (ICD-10 - Z13.31) 05/21/2025 Radiculopathy, lumbar region (ICD-10 - M54.16) 04/12/2025 PVD (peripheral vascular disease) (ICD-10 - I73.9) 04/12/2025 Radiculopathy, lumbar region (ICD-10 - M54.16) [...] daily self foot checks. Plan Of Treatment No Information Insurance Providers Payer Name Payer Address Payer Phone Subscriber Number Group Number Insured Name Patient Relationship to Insured Coverage Start Date Coverage End Date [place] [address] [address] [place] [address] [phone] [id number] ANA CRISTINA MENDOZAE Self - patient is the insured A[employer] Commercial [address] [place] [address] [id number] ANA CRISTINA MENDOZAE Self - patient is the insured [place] Medicaid [address] [place] [address] [id number] SELEEN MENDOZA Self - patient is the insured Medical (General) History Medical History History ICD Code Heart Disease hypertension type II diabetes high cholesterol Arthritis fibromyalgia neuropathy carpal tunnel both hands Surgical History Surgery Date(Month/Year) stents x 7 toes removed carpal tunnel release stents in legs both knees toes removed L foot
--- NOTE | 2025-10-04 01:17 | XRR_ITS ---
PROCEDURE INFORMATION: Exam: XR Chest Exam date and time: 10/04/2025 1:32 AM Age: 60 years old Clinical indication: Pain; Angina pectoris; Additional info: Cp TECHNIQUE: Imaging protocol: Radiologic exam of the chest. Views: 1 view. COMPARISON: CR (CHEST, ) 09/02/2025 5:01 PM FINDINGS: Lungs: Unremarkable. No consolidation. Pleural spaces: Unremarkable. No pleural effusion. No pneumothorax. Heart/Mediastinum: Unremarkable. No cardiomegaly. Bones/joints: Unremarkable. XR/XR chest 1V portable [id number] IMPRESSION: No acute findings.
--- NOTE | 2025-10-04 01:17 | CTR_ITS ---
PROCEDURE INFORMATION: Exam: CTA Abdomen and Pelvis With Contrast Exam date and time: 10/04/2025 3:04 AM Age: 60 years old Clinical indication: Abdominal pain; Other: Ripping chest pain/back pain; Additional info: Vasulopath, ripping cp->back TECHNIQUE: Imaging protocol: Computed tomographic angiography of the abdomen and pelvis with contrast. Exam focused on the arteries. 3D rendering (Not supervised by radiologist): MIP and/or 3D reconstructed images were created by the technologist. Radiation optimization: All CT scans at this facility use at least one of these dose optimization techniques: automated exposure control; mA and/or kV adjustment per patient size (includes targeted exams where dose is matched to clinical indication); or iterative reconstruction. Contrast material: OMNI 350; Contrast volume: 100 ml; Contrast route: INTRAVENOUS (IV); COMPARISON: CT abdomen pelvis wo con [id number] 07/23/2024 9:58 PM RADIATION DOSE METRICS: Total DLP (mGy-cm): 1394.38 FINDINGS: Aorta: Severe atherosclerotic changes of the aorta. No abdominal aortic aneurysm or dissection. 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 Contrast is noted within the celiac artery and its branch vessels. Vascular surgical evaluation recommended. SMA is patent, including its origin. Renal arteries: No occlusion or significant stenosis. Right iliac arteries: No occlusion or significant stenosis. Left iliac arteries: No occlusion or significant stenosis. Liver: Hepatic steatosis. Gallbladder and biliary ducts: Unremarkable. No calcified stones. No ductal dilation. Pancreas: Unremarkable. No mass. No ductal dilation. Spleen: Multiple calcified splenic granulomas. Adrenal glands: Unremarkable. No mass. Kidneys and ureters: No hydronephrosis or delayed nephrogram. Nonobstructing 5 mm right lower pole renal stone. Stomach and bowel: Large volume ingested contents in the stomach. Moderate fecal retention, correlate for constipation. Appendix: No evidence of appendicitis. Intraperitoneal space: Unremarkable. No free air. No significant fluid collection. Lymph nodes: Unremarkable. No enlarged lymph nodes. Urinary bladder: Unremarkable. No mass. Reproductive: Unremarkable as visualized. Bones/joints: Degenerative changes of the spine. Posterior lumbosacral fusion hardware at L4-S1. Soft tissues: Unremarkable. CT/CT ang [facility] abdpel [id number] IMPRESSION: 1. Severe atherosclerotic changes of the aorta. 2. No abdominal aortic aneurysm or dissection. 3. 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 Contrast is noted within the celiac artery and its branch vessels. 4. No hydronephrosis or delayed nephrogram. 5. Nonobstructing 5 mm right lower pole renal stone. 6. Moderate fecal retention, correlate for constipation. 7. Vascular surgical evaluation recommended. SMA is patent, including its origin.
--- NOTE | 2025-10-04 01:21 | W.ED.CHESTPA ---
HPI - Chest Pain General: Chief Complaint: Chest Pain Stated Complaint: cp Time Seen by Provider: 10/04/25 00:54 History of Present Illness: Patient is a 60-year-old female with past medical history of hypertension, HLD, diabetes with bilateral metatarsal amputations, CHF, CAD, COPD on 2 L baseline who presents to the ED with diffuse chest and abdominal pain. States this occurred abruptly few hours prior to arrival, sharp, no obvious triggering symptoms. She took aspirin and was given nitro by EMS before arrival. She reports a sharp chest pain that radiates to her abdomen and her back, no known AAA. Vital stable for EMS Related Data Home Medications ?Medication ?Instructions ?Recorded ?Confirmed metformin 500 mg tablet 500 mg PO BID 07/24/24 10/04/25 furosemide 40 mg tablet 40 mg PO DAILY PRN Edema 10/25/24 10/04/25 gabapentin 300 mg capsule 300 mg PO TID 10/25/24 10/04/25 insulin glargine 100 unit/mL (3 50 unit SUBCUT BID 10/25/24 10/04/25 mL) subcutaneous pen (Lantus Solostar U-100 Insulin) oxybutynin chloride 10 mg 20 mg PO DAILY 10/25/24 10/04/25 tablet,extended release 24 hr cilostazol 100 mg tablet 100 mg PO BID 03/29/25 10/04/25 pantoprazole 40 mg tablet,delayed 40 mg PO QAM PRN Acid Reflux 03/29/25 10/04/25 release dulaglutide 1.5 mg/0.5 mL 1.5 mg SUBCUT Q7D 10/04/25 10/04/25 subcutaneous pen injector ([facility]) morphine 15 mg immediate release 15 mg PO Q8H PRN Pain 10/04/25 10/04/25 tablet pregabalin 300 mg capsule 300 mg PO BID 10/04/25 10/04/25 Previous Rx's ?Medication ?Instructions ?Recorded blood sugar diagnostic (Blood #50 ea 08/10/23 Glucose Test strips) lancets #100 ea 11/28/23 albuterol sulfate 90 mcg/actuation 2 puff inhalation Q6H PRN 01/10/24 aerosol inhaler shortness of breath or wheezing #8.5 grams blood sugar diagnostic (Blood #100 ea 01/10/24 Glucose Test strips) blood-glucose meter #1 ea 01/10/24 aspirin 81 mg tablet,delayed 81 mg PO QAM #30 tabs 03/20/24 release epinephrine 0.3 mg/0.3 mL 0.3 mg (0.3 mL) IM Q4H PRN 04/16/24 injection, auto-injector (EpiPen anaphylaxis #2 ea 2-Pankaj) pen needle, diabetic 31 gauge x #100 ea 04/16/2403/01 (Comfort EZ Pen [place]) pen needle, diabetic 32 gauge x #100 ea 04/16/24 (Comfort EZ Pen [place]) quetiapine 200 mg tablet 200 mg PO BEDTIME #30 tabs 04/16/24 Wheel chair #1 ea 07/19/24 Diabetic shoes with 3 sets of #1 ea 08/09/24 insoles and toe filler to right ticagrelor 90 mg tablet (Brilinta) 90 mg PO BID #180 tabs 03/06/25 nitroglycerin 0.4 mg sublingual 0.4 mg sublingual Q5M PRN Chest 04/15/25 tablet (Nitrostat) Pain #30 tabs ezetimibe 10 mg tablet See Rx Instructions .Route 05/03/25 .COMPLEX #90 tabs losartan 50 mg tablet See Rx Instructions .Route 05/03/25 .COMPLEX #90 tabs Allergies Allergy/AdvReac Type Severity Reaction Status Date / Time doxycycline Allergy Mild ADR-Photose Verified 05/14/25 08:32 nsitivity fentanyl Allergy Unknown ALGY-Difficulty Verified 05/14/25 08:32 Breathing adhesive Allergy Unknown Verified 05/14/25 08:32 buprenorphine (From Suboxone) Allergy Unknown Verified 09/02/25 15:47 codeine Allergy Unknown Verified 05/14/25 08:32 hydrocodone Allergy ADR-Itching Verified 05/14/25 08:32 latex Allergy ALGY-Swell Verified 05/14/25 08:32 Lip/Tongue/Throat naloxone (From Suboxone) Allergy Unknown Verified 09/02/25 15:47 naproxen (From Naprosyn) Allergy Unknown Verified 05/14/25 08:32 nut - unspecified Allergy ALGY-Anaphy Verified 05/14/25 08:32 laxis Penicillins Allergy Unknown Verified 05/14/25 08:32 tramadol Allergy ADR-Itching Verified 05/14/25 08:32 Review of Systems General: Reports: 10 or more systems reviewed and unremarkable except in HPI and below PFSH ED PFS: Medical History (Updated 10/06/25 @ 05:48 by Jem Valdez DO) Chronic mesenteric ischemia Moderate aortic stenosis NSTEMI (non-ST elevated myocardial infarction) Chronic migraine without aura, intractable, with status migrainosus Hemiparesis affecting right side as late effect of cerebrovascular accident Generalized epilepsy Equinus contracture of left ankle Amputated toe of left foot Amputated toe of right foot Septic arthritis suspected Osteomyelitis of ankle or foot, right, acute Acute osteomyelitis of right foot Acute respiratory failure with hypoxia PAD (peripheral artery disease) Hammertoe of left foot Thrombocytosis, unspecified Diabetes Cellulitis Essential hypertension Depression Anemia 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 COPD (chronic obstructive pulmonary disease) Hypersensitivity pneumonitis Rheumatoid arthritis Infection of total left knee replacement Right wrist deformity History of stroke Acute exacerbation of chronic obstructive pulmonary disease (COPD) Acute encephalopathy Acute alteration in mental status Sepsis Sacral pressure ulcer Cellulitis of gluteal region Seizure disorder Hypoxemia Seizure UTI (urinary tract infection) Chronic, continuous use of opioids Seizures Acute and chronic respiratory failure with hypoxia Pneumonia Pneumonia Acute hypoxemic respiratory failure Stenosis of left internal carotid artery with cerebral infarction Diabetic foot ulcer Right arm weakness Hoarseness of voice Sepsis Numbness and tingling in both hands Urinary tract infection Chest pain Syncope Needs flu shot Carpal tunnel syndrome, right Urinary incontinence Chronic knee pain Abnormal stress test CAD (coronary artery disease) Acute exacerbation of CHF (congestive heart failure) Unstable angina COPD exacerbation Exposure to COVID-19 virus Compression fracture of L2 lumbar vertebra Right hip pain Dyspnea (HFpEF) heart failure with preserved ejection fraction Candidiasis of vagina History of CVA (cerebrovascular accident) Elevated troponin Pericardial effusion Pressure ulcer Prosthetic joint infection Septic arthritis of knee, left Osteoarthritis of left knee History of hypoglycemic coma Obesity (BMI 35.0-39.9 without comorbidity) Peripheral sensory neuropathy due to type 2 diabetes mellitus Coronary artery disease due to type 2 diabetes mellitus Diabetes type 2, uncontrolled Neuropathy Insomnia Fibromyalgia, primary Hyperlipidemia, mixed CVA (cerebral vascular accident) Dyslipidemia Leukocytosis Chronic obstructive pulmonary disease, unspecified Vitamin D deficiency Type 2 diabetes mellitus with diabetic autonomic (poly)neuropathy Essential hypertension Encounter for long-term opiate analgesic use Opioid contract exists Current every day smoker Chronic pain of left knee Low back pain radiating to both legs Intervertebral disc disorder of lumbar region with myelopathy Lumbosacral spondylosis without myelopathy Osteoarthritis of spine at multiple levels Chronic left-sided low back pain Surgical History (Updated 09/07/25 @ 00:00 by SATHYA Mathis) History of amputation of great toe of both feet Status post left knee replacement History of coronary angiogram Angiogram April 2020 with 90% circumflex lesion, drug-eluting stent placed by Dr. Jerome Status post lumbar laminectomy S/P lumbar fusion DR. Shreya ZAYAS IN [place], [place] L4-L5, L5-S1 S/p bilateral carpal tunnel release History of arthroscopic surgery of elbow BILATERAL S/P hysterectomy S/P knee surgery RIGHT Family History Other CAD (coronary artery disease) Cancer Diabetes Social History (Updated 10/04/25 @ 05:04 by Teto Hickman MD) Smoking and tobacco/nicotine status: former use of tobacco/nicotine Quit status (tobacco/nicotine): has quit using Year quit tobacco: 2023 Former quit date comment: States she smoked from ages [age] 2 packs/day average she now vapes flavor Alcohol intake: former Substance/Drug Use: never Additional social history: Patient states she vapes flavor but not nicotine. She does not drink alcohol, use weed or meth. 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 She wants full CODE STATUS as discussed with Teto Hickman MD on 10/04/2025 Caregiver/support person: Yes Lives independently: No Housing: Care Home Marital status: Unknown Marital status details: She and son state she is not service: No Current occupational status: unemployed Pets and animals: Yes Do you think of yourself as: Straight/Heterosexual Current gender identity: Female Physical Exam Narrative: EXAM NARRATIVE: Patient chronically ill-appearing, saturating well on home 2 L, tachycardic but normotensive, no acute distress. Abdomen protuberant, mild diffuse tenderness, no overlying skin changes, no CVA tenderness, bowel sounds intact. Sinus tach, normotensive, mild nonpitting lower extremity edema. Breathing mildly tachypneic but saturating well and breathing comfortably on her home 2 L, breath sounds distant and coarse but no wheezes or crackles obvious. Prior metatarsal amputations to bilateral feet with well-healing incisions. Course Vital Signs: Vital signs: Vital Signs Temperature 101.3 F H 10/06/25 03:06 Pulse Rate 116 H 10/06/25 04:17 Respiratory Rate 20 H 10/06/25 02:41 Blood Pressure 87/59 10/06/25 03:06 Pulse Oximetry 97 10/06/25 04:17 Oxygen Delivery Me thod Nasal Cannula 10/06/25 03:06 Oxygen Flow Rate 5 10/06/25 03:06 Fraction of Inspir ed Oxygen 40 10/06/25 04:17 MDM - Chest Pain Medical Decision Making -ddx: ACS, dysrhythmia, pericarditis, dissection, AAA, pneumothorax, pneumonia, pancreatitis, cholecystitis, hollow viscus injury, SBO, cystitis, pyelonephritis, intra-abdominal abscess - Patient arrives with abrupt onset of radiating chest pain and very comorbid patient, is tachycardic, will evaluate with CTA aorta, cardiac and infectious labs, provide pain control and reassess. - Patient improvement with pain medication, her CTA was grossly negative for any emergently concerning cardiac, respiratory or aortic pathology. No obvious viscus injury, no obstruction. Her UA was rather suggestive of a UTI and she had a moderate leukocytosis and combination with her tachycardia, she was given very slow fluids because of her history of heart dysfunction and already appearing mildly fluid overloaded. Due to not being on any recent antibiotics and not in shock, she was just started on Rocephin for close monitoring as she was admitted to the hospitalist because of her high risk of deterioration after being found with her and her son, admitted in stable condition. Lab Data 10/06/25 03:07 10/06/25 03:07 Radiology Impressions Chest/Abdomen/Pelvis CTA 10/04/25 01:17 IMPRESSION: 1. Severe atherosclerotic changes of the aorta. 2. No abdominal aortic aneurysm or dissection. 3. 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 Contrast is noted within the celiac artery and its branch vessels. 4. No hydronephrosis or delayed nephrogram. 5. Nonobstructing 5 mm right lower pole renal stone. 6. Moderate fecal retention, correlate for constipation. 7. Vascular surgical evaluation recommended. SMA is patent, including its origin. Chest X-Ray 10/06/25 02:59 IMPRESSION: Pulmonary vascular congestion. Cardiomegaly. Correlate for congestive heart failure. Laboratory Results WBC 18.36 10^3/uL (3.29-11.43) H 10/04/25 01:33 RBC 4.43 10^6/uL (3.85-5.65) 10/04/25 01:33 Hgb 8.00 g/dL (11.27-16.99) L 10/04/25 01:33 Hct 27.7 % (36-47) L 10/04/25 01:33 MCV 62.5 fl (85-98) L 10/04/25 01:33 MCH 18.1 pg (27-33) L 10/04/25 01:33 MCHC 28.9 g/dL (30-55) L 10/04/25 01:33 RDW 21.7 % (12.1-15.1) H 10/04/25 01:33 Plt Count 479 10^3/cmm (157-399) H 10/04/25 01:33 MPV 9.1 fL (7.4-10.4) 10/04/25 01:33 Neut % (Auto) 65.7 % 10/04/25 01:33 Lymph % (Auto) 20.4 % 10/04/25 01:33 [place] % (Auto) 7.0 % 10/04/25 01:33 Eos % (Auto) 5.9 % 10/04/25 01:33 Baso % (Auto) 0.6 % 10/04/25 01:33 Neut # (Auto) 12.05 10^3/uL (1.8-7.7) H 10/04/25 01:33 Lymph # (Auto) 3.8 10^3/uL (0.8-4.8) 10/04/25 01:33 [place] # (Auto) 1.3 10^3/uL (0.2-0.9) H 10/04/25 01:33 Eos # (Auto) 1.1 10^3/uL (0.0-0.8) H 10/04/25 01:33 Baso # (Auto) 0.1 10^3/uL (0.0-0.1) 10/04/25 01:33 Nucleated RBC % (auto) 0 % 10/04/25 01:33 Nucleated RBCs # 0.0 /100WBC 10/04/25 01:33 Sodium 134 mmol/L (136-145) L 10/04/25 01:33 Potassium 4.4 mmol/L (3.5-5.1) 10/04/25 01:33 Chloride 99 mmol/L (98-107) 10/04/25 01:33 Carbon Dioxide 20 mmol/L (22-29) L 10/04/25 01:33 Anion Gap 19.4 (5-19) H 10/04/25 01:33 BUN 18 mg/dL (6-20) 10/04/25 01:33 Creatinine 1.1 mg/dL (0.5-0.9) H 10/04/25 01:33 GFR Calculation 51.0 mL/min (90-130) L 10/04/25 01:33 Glucose 234 mg/dL (65-115) H 10/04/25 01:33 Calculated Osmolality 287 mOsm/kg (285-295) 10/04/25 01:33 Lactic Acid 2.9 mmol/L (0.5-2.2) H 10/04/25 01:33 Calcium 9.0 mg/dL (8.5-10.5) 10/04/25 01:33 Phosphorus 3.6 mg/dL (2.5-4.5) 10/04/25 01:33 Magnesium 2.0 mg/dL (1.7-2.3) 10/04/25 01:33 Iron 14 ug/dL (37-145) L 10/04/25 01:33 TIBC 408 mcg/dl 10/04/25 01:33 % Saturation 3.4 % (20-50) L 10/04/25 01:33 Unsat Iron Binding 394 ug/dL (112-347) H 10/04/25 01:33 Troponin T Baseline 51 ng/L (0-10) H 10/04/25 01:33 Troponin T 60 Minute 46.82 ng/L (0-10) H 10/04/25 02:37 Delta Troponin T -4.18 ABS# (0-10) L 10/04/25 02:37 C-React Prot High Sens 4.130 mg/dL (0.0-0.3) H 10/04/25 01:33 NT-Pro-B Natriuret Pep 801 pg/mL (0-125) H 10/04/25 01:33 Lipase 20 U/L (13-60) 10/04/25 01:33 Urine Color Yellow (Yellow) 10/04/25 01:45 Urine Appearance Clear (CLEAR) 10/04/25 01:45 Urine pH 5.0 (5-7) 10/04/25 01:45 Ur Specific [place] 1.023 (1.005-1.030) 10/04/25 01:45 Urine Protein Trace (Negative) A 10/04/25 01:45 Urine Glucose (UA) 3+ (Normal) H 10/04/25 01:45 Urine Ketones Negative (Negative) 10/04/25 01:45 Urine Blood Negative (Negative) 10/04/25 01:45 Urine Nitrate Positive (Negative) A 10/04/25 01:45 Urine Bilirubin Negative (Negative) 10/04/25 01:45 Urine Urobilinogen 0.2 mg/dL (Negative) 10/04/25 01:45 Ur Leukocyte Esterase Negative (Negative) 10/04/25 01:45 Urine RBC 0-2 /hpf (0-2) 10/04/25 01:45 Urine WBC 6-10 /hpf (0-5) 10/04/25 01:45 Ur Squamous Epith Cells 0-5 /hpf (0-5) 10/04/25 01:45 Amorphous Sediment Not Reportable 10/04/25 01:45 Urine Bacteria 4+ /hpf (NONE) H 10/04/25 01:45 Hyaline Casts 1.21 /lpf 10/04/25 01:45 All radiology interpretation(s) finalized by discharge Discharge Plan Discharge Patient Disposition: Admitted As Inpatient Admit Provider: Teto Hickman Clinical Impression: UTI (urinary tract infection) Condition: Stable Coding Level of Care Code ED Date Night Sitter for Chg Fwd Heart Score HEART Score Components History: Moderately Suspicious EKG: Normal Age: 45-64 yrs Risk Factors: >/=3 Risk Factors Troponin: Baseline Trop 16-45 ng/L HEART Score RESULT HEART Score: 5
[2025-10-04] MEDS: morphine 4 mg/mL SDV 1 mL IVP (01:37)
[2025-10-04 02:10] LABS: Glucose Urine UA 3+ (Normal); Nitrate Urine Positive (Negative); Specific Gravity, Urine 1.023 (1.005-1.030)
[2025-10-04 02:15] LABS: Add Urine Microscopic? YES; Universal Test for UA Present (0)
[2025-10-04 02:24] LABS: Hematocrit 27.7 % (36-47); Hemoglobin 8.00 g/dL (11.27-16.99); Mean Corpuscular HGB Conc 28.9 g/dL (30-55); Mean Corpuscular Hemoglobin 18.1 pg (27-33); Mean Corpuscular Volume 62.5 fl (85-98); Nucleated Red Blood Cells % 0 %; Platelet Count 479 10^3/cmm (157-399); Red Blood Count 4.43 10^6/uL (3.85-5.65); White Blood Count 18.36 10^3/uL (3.29-11.43)
--- NOTE | 2025-10-04 02:37 | ECG_ITS ---
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: : 1965 Requested By: Jem Valdez Order Number: [id number] Ashlee MD: CRISTHIAN TEJEDA Measurements Intervals [place] Rate: 109 P: 45 [place]: 189 QRS: 33 QRSD: 93 T: 54 QT: 352 QTc: 475 Interpretive Statements SINUS TACHYCARDIA LEFT VENTRICULAR HYPERTROPHY AND ST-T CHANGE [VOLTAGE CRITERIA PLUS ST/T ABNORMALITY] INFERIOR MYOCARDIAL INFARCTION , PROBABLY OLD [40+ ms Q WAVE AND/OR ST/T ABNORMALITY IN II/aVF] Compared to ECG 10/04/2025 00:57:42 ST (T wave) deviation now present Myocardial infarct finding still present Electronically Signed On 10-09-2025 21:03:09 CHIEF SERVICE DISPATCHER by CRISTHIAN TEJEDA [email or web address]
[2025-10-04 02:42] LABS: Lactic Sepsis W/Reflex 2.9 mmol/L (0.5-2.2)
[2025-10-04 02:44] LABS: Troponin(5th) Baseline 51 ng/L (0-10)
[2025-10-04] MEDS: HYDROmorphone 0.5 MG/0.5 ML INJ IVP (02:46)
[2025-10-04] MEDS: cefTRIAXone 1,000 mg SDV 1000 MG IVP (02:46)
[2025-10-04 02:53] LABS: Anion Gap 19.4 (5-19); Blood Urea Nitrogen 18 mg/dL (6-20); Calcium 9.0 mg/dL (8.5-10.5); Carbon Dioxide 20 mmol/L (22-29); Chloride 99 mmol/L (98-107); Glucose 234 mg/dL (65-115); Lipase 20 U/L (13-60); Magnesium 2.0 mg/dL (1.7-2.3); NT Pro B Type Natriuretic Pept 801 pg/mL (0-125); Osmolality Calculated 287 mOsm/kg (285-295); Potassium 4.4 mmol/L (3.5-5.1); Sodium 134 mmol/L (136-145)
[2025-10-04 03:04] LABS: CRP High Sensitivity Cardiac 4.130 mg/dL (0.0-0.3)
[2025-10-04] MEDS: iohexol 350 mg/mL 500 mL Btl (per mL) IV (03:27)
[2025-10-04 04:00] LABS: Reflex Lactate Order REFLEX LACTIC ORDERD
[2025-10-04 04:14] LABS: Iron 14 ug/dL (37-145); Total Iron Binding Capacity 408 mcg/dl; Unsaturated Iron Binding 394 ug/dL (112-347)
--- NOTE | 2025-10-04 04:14 | PC.NURSE ---
Report called to Cecelia WALDEN. All questions and concerns were addressed at time of report.
--- NOTE | 2025-10-04 04:45 | PM.HP ---
Providers/Chief Complaint Admitting Physician: Teto Hickman MD Primary Care Provider: Keila Crespo MD Chief Complaint: cp History of Present Illness Mayra Ascencio is a 60 year old female with history of coronary artery disease and mesenteric as well as left peripheral artery disease has had multiple stents. Patient comes in today complaining of chest and abdominal pain. She reports having history of Crohn's. Patient states that her abdomen has pain and pressure for the last 1 week. She has bowel movements twice a day normal amount no blood. She has had nausea and dry heaves but no vomiting she has had constipation at times but also diarrhea 3 times a week. She admits to having blood transfusions starting at childbirth and then with surgery each time possibly 6 or 7 times in her lifetime. She denies being told ever that she has iron deficiency anemia. Patient has history of drug-eluting stent 2020 and circumflex artery lesion by Dr. Jerome she also had RCA in-stent restenosis ballooned and stented by Dr. Lyles on 09/05/2025. Patient has had bilateral lower extremity arterial stents and bilateral toe amputations of all of her toes on both feet Family history positive for sleep apnea Review of Systems Narrative: General No fevers chills she has had weight loss 45 pounds with effort cardiovascular she has intermittent chest pain Respiratory no shortness of breath. She occasionally coughs up phlegm or has emesis she does have heavy snoring and occasionally stops breathing when she sleeps she states she has never been tested for sleep apnea but her whole family has sleep apnea GI positive for nausea and dry heaves constipation and diarrhea she gets abdominal pain after she eats and has to rest for it to resolve. 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 Neuro she has had seizures several in the last 2 years she reports history of stroke Heme denies clots in legs or lungs Vascular she had stents in her legs and her heart Malignancy history negative Medications/Allergies Home Medications ?Medication ?Instructions ?Recorded ?Confirmed ?Last Taken ?Type blood sugar diagnostic (Blood #50 ea 08/10/23 09/03/25 Unknown Rx Glucose Test strips) lancets #100 ea 11/28/23 09/03/25 Unknown Rx albuterol sulfate 90 mcg/actuation 2 puff inhalation Q6H PRN 01/10/24 09/02/25 11/14/24 18:00 Rx aerosol inhaler shortness of breath or wheezing #8.5 grams blood sugar diagnostic (Blood #100 ea 01/10/24 09/03/25 Unknown Rx Glucose Test strips) blood-glucose meter #1 ea 01/10/24 09/03/25 Unknown Rx aspirin 81 mg tablet,delayed 81 mg PO QAM #30 tabs 03/20/24 09/02/25 03/28/25 Rx release duloxetine 60 mg capsule,delayed 60 mg PO DAILY #30 caps 04/16/24 09/02/25 03/28/25 Rx release epinephrine 0.3 mg/0.3 mL 0.3 mg (0.3 mL) IM Q4H PRN 04/16/24 09/02/25 07/23/24 Rx injection, auto-injector (EpiPen anaphylaxis #2 ea 2-Pankaj) pen needle, diabetic 31 gauge x #100 ea 04/16/24 09/03/25 Unknown Rx 5/16 (Comfort EZ Pen [place]) pen needle, diabetic 32 gauge x #100 ea 04/16/24 09/03/25 Unknown Rx 5/32 (Comfort EZ Pen [place]) quetiapine 200 mg tablet 200 mg PO BEDTIME #30 tabs 04/16/24 09/02/25 03/28/25 Rx Wheel chair #1 ea 07/19/24 09/03/25 Unknown Rx metformin 500 mg tablet 500 mg PO BID 07/24/24 09/02/25 03/28/25 History Diabetic shoes with 3 sets of #1 ea 08/09/24 09/03/25 Unknown Rx insoles and toe filler to right furosemide 40 mg tablet 40 mg PO DAILY PRN Edema 10/25/24 09/02/25 10/26/24 History gabapentin 300 mg capsule 300 mg PO TID 10/25/24 09/03/25 03/28/25 History insulin glargine 100 unit/mL (3 50 unit SUBCUT BID 10/25/24 09/03/25 03/28/25 History mL) subcutaneous pen (Lantus Solostar U-100 Insulin) oxybutynin chloride 10 mg 20 mg PO DAILY 10/25/24 09/03/25 03/28/25 History tablet,extended release 24 hr ticagrelor 90 mg tablet (Brilinta) 90 mg PO BID #180 tabs 03/06/25 09/03/25 03/28/25 Rx cilostazol 100 mg tablet 100 mg PO BID 03/29/25 09/02/25 03/28/25 History pantoprazole 40 mg tablet,delayed 40 mg PO QAM PRN Acid Reflux 03/29/25 09/02/25 Unknown History release nitroglycerin 0.4 mg sublingual 0.4 mg sublingual Q5M PRN Chest 04/15/25 09/03/25 Unknown Rx tablet (Nitrostat) Pain #30 tabs ezetimibe 10 mg tablet See Rx Instructions .Route 05/03/25 09/03/25 Unknown Rx .COMPLEX #90 tabs losartan 50 mg tablet See Rx Instructions .Route 05/03/25 09/02/25 Unknown Rx .COMPLEX #90 tabs morphine 30 mg tablet,extended 60 mg PO Q12H PRN Severe Pain 09/04/25 09/04/25 Unknown History release (Scale Score 7-10) Allergies Allergy/AdvReac Type Severity Reaction Status Date / Time doxycycline Allergy Mild ADR-Photose Verified 05/14/25 08:32 nsitivity fentanyl Allergy Unknown ALGY-Difficulty Verified 05/14/25 08:32 Breathing adhesive Allergy Unknown Verified 05/14/25 08:32 buprenorphine (From Suboxone) Allergy Unknown Verified 09/02/25 15:47 codeine Allergy Unknown Verified 05/14/25 08:32 hydrocodone Allergy ADR-Itching Verified 05/14/25 08:32 latex Allergy ALGY-Swell Verified 05/14/25 08:32 Lip/Tongue/Throat naloxone (From Suboxone) Allergy Unknown Verified 09/02/25 15:47 naproxen (From Naprosyn) Allergy Unknown Verified 05/14/25 08:32 nut - unspecified Allergy ALGY-Anaphy Verified 05/14/25 08:32 laxis Penicillins Allergy Unknown Verified 05/14/25 08:32 tramadol Allergy ADR-Itching Verified 05/14/25 08:32 PFSH Acute PFSH: Medical History (Updated 10/04/25 @ 05:12 by Teto Hickman MD) Chronic mesenteric ischemia Moderate aortic stenosis NSTEMI (non-ST elevated myocardial infarction) Chronic migraine without aura, intractable, with status migrainosus Hemiparesis affecting right side as late effect of cerebrovascular accident Generalized epilepsy Equinus contracture of left ankle Amputated toe of left foot Amputated toe of right foot Septic arthritis suspected Osteomyelitis of ankle or foot, right, acute Acute osteomyelitis of right foot Acute respiratory failure with hypoxia PAD (peripheral artery disease) Hammertoe of left foot Thrombocytosis, unspecified Diabetes Cellulitis Essential hypertension Depression Anemia 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 COPD (chronic obstructive pulmonary disease) Hypersensitivity pneumonitis Rheumatoid arthritis Infection of total left knee replacement Right wrist deformity History of stroke Acute exacerbation of chronic obstructive pulmonary disease (COPD) Acute encephalopathy Acute alteration in mental status Sepsis Sacral pressure ulcer Cellulitis of gluteal region Seizure disorder Hypoxemia Seizure UTI (urinary tract infection) Chronic, continuous use of opioids Seizures Acute and chronic respiratory failure with hypoxia Pneumonia Pneumonia Acute hypoxemic respiratory failure Stenosis of left internal carotid artery with cerebral infarction Diabetic foot ulcer Right arm weakness Hoarseness of voice Sepsis Numbness and tingling in both hands Urinary tract infection Chest pain Syncope Needs flu shot Carpal tunnel syndrome, right Urinary incontinence Chronic knee pain Abnormal stress test CAD (coronary artery disease) Acute exacerbation of CHF (congestive heart failure) Unstable angina COPD exacerbation Exposure to COVID-19 virus Compression fracture of L2 lumbar vertebra Right hip pain Dyspnea (HFpEF) heart failure with preserved ejection fraction Candidiasis of vagina History of CVA (cerebrovascular accident) Elevated troponin Pericardial effusion Pressure ulcer Prosthetic joint infection Septic arthritis of knee, left Osteoarthritis of left knee History of hypoglycemic coma Obesity (BMI 35.0-39.9 without comorbidity) Peripheral sensory neuropathy due to type 2 diabetes mellitus Coronary artery disease due to type 2 diabetes mellitus Diabetes type 2, uncontrolled Neuropathy Insomnia Fibromyalgia, primary Hyperlipidemia, mixed CVA (cerebral vascular accident) Dyslipidemia Leukocytosis Chronic obstructive pulmonary disease, unspecified Vitamin D deficiency Type 2 diabetes mellitus with diabetic autonomic (poly)neuropathy Essential hypertension Encounter for long-term opiate analgesic use Opioid contract exists Current every day smoker Chronic pain of left knee Low back pain radiating to both legs Intervertebral disc disorder of lumbar region with myelopathy Lumbosacral spondylosis without myelopathy Osteoarthritis of spine at multiple levels Chronic left-sided low back pain Surgical History (Updated 09/07/25 @ 00:00 by SATHYA Mathis) History of amputation of great toe of both feet Status post left knee replacement History of coronary angiogram Angiogram April 2020 with 90% circumflex lesion, drug-eluting stent placed by Dr. Jerome Status post lumbar laminectomy S/P lumbar fusion DR. Shreya ZAYAS IN [place], [place] L4-L5, L5-S1 S/p bilateral carpal tunnel release History of arthroscopic surgery of elbow BILATERAL S/P hysterectomy S/P knee surgery RIGHT Family History Other CAD (coronary artery disease) Cancer Diabetes Social History (Updated 10/04/25 @ 05:04 by Teto Hickman MD) Smoking and tobacco/nicotine status: former use of tobacco/nicotine Quit status (tobacco/nicotine): has quit using Year quit tobacco: 2023 Former quit date comment: States she smoked from ages [age] 2 packs/day average she now vapes flavor Alcohol intake: former Substance/Drug Use: never Additional social history: Patient states she vapes flavor but not nicotine. She does not drink alcohol, use weed or meth. 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 She wants full CODE STATUS as discussed with Teto Hickman MD on 10/04/2025 Caregiver/support person: Yes Lives independently: No Housing: Group Home Marital status: Unknown Marital status details: She and son state she is not service: No Current occupational status: unemployed Pets and animals: Yes Do you think of yourself as: Straight/Heterosexual Current gender identity: Female Vitals/I&O/Wt Last Vital Signs Temp 98.5 F 10/04/25 00:54 Pulse 121 H 10/04/25 03:44 Resp 16 10/04/25 01:37 BP 133/86 10/04/25 03:44 Pulse Ox 94 10/04/25 03:44 O2 Del Method Nasal Cannula 10/04/25 02:52 O2 Flow Rate 2 10/04/25 02:52 Weight last 48 hrs Weight 97.522 kg Physical Exam Narrative: General Well-developed morbidly obese General Well-developed obese female with sonorous breath sounds. Oropharynx Mallampati 4 CV regular rate and rhythm with 3/6 systolic ejection murmur best heard at the left sternal border Lungs good air movement bilaterally no rales no wheezes Abdomen increased mildly distended full only minimal diffuse tenderness and no rebound. Back no flank tenderness Calves 1+ bilateral pretibial edema no tenderness or cords Skin warm and dry Mentation patient is a poor historian but she is alert and orient x 3 and pleasant Data 10/04/25 01:33 12/19/25 01:33 A&P Assessment and plan 1. Chronic mesenteric ischemia: Patient has chronic recurring lactic acidosis and symptoms of constipation and diarrhea which I think I think explains her tachycardia and lactic acidosis here. She is not pooping blood or exquisitely tender in the abdomen to suggest acute abdomen or infarcted bowel. I think she will do well with just fluid hydration. Continue aspirin and Plavix 2. Urinary retention: Bladder was distended on CT scan. She has leukocyte esterase but nitrites negative and cell count is low although she has some symptoms of dysuria. Will check postvoid [address] [place] if greater than 200 cc 3. 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 Butt for diabetic disease. The feet stumps look healthy currently without ulceration 4. Type 2 diabetes mellitus with diabetic polyneuropathy: Continue gabapentin for neuropathy. Continue Lantus 50 units twice a day and start sliding scale insulin 5. CAD (coronary artery disease): Recent stent to RCA in-stent restenosis on 09/05/2025 6. Moderate aortic stenosis: Stable 7. Leukocytosis, unspecified type: Recurrent elevated white count most of this year. Cannot completely exclude UTI cultures pending. She received single dose of Rocephin in the ER which I will not continue. This may also be due to intestinal ischemia 8. Lactic acidosis: Patient is on metformin which I am going to stop due to recurrent lactic acidosis. This may be due to intestinal ischemia but also possibly due to the metformin 9. Sleep apnea-like behavior: Recommends workup for sleep apnea outpatient PDMP PDMP Reviewed: Not Reviewed Attestations Medical Necessity Statement*: Patient admitted to hospital with lactic acidosis elevated white count suspected mesenteric ischemia and will require greater than 2 midnights Coding Level of Care Code 16753 Diagnoses Chronic mesenteric ischemia K55.1 Urinary retention R33.9 PAD (peripheral artery disease) I73.9 Type 2 diabetes mellitus with diabetic polyneuropathy E11.42 CAD (coronary artery disease) I25.10 Moderate aortic stenosis I35.0 Leukocytosis, unspecified type D72.829 Lactic acidosis E87.20 Sleep apnea-like behavior G47.39 Time Spent (min) 80
[2025-10-04] MEDS: oxyCODONE 5 mg IR Tab/Cap PO ×3 (05:40→19:56)
[2025-10-04] MEDS: lactulose oral liq 20 gm/30 mL UDC 10 GM PO ×4 (05:40→22:24)
[2025-10-04 06:02] LABS: Lactic Acid level (Lactate) 1.7 mmol/L (0.5-2.2)
[2025-10-04 06:03] LABS: Alanine Aminotransferase 13 U/L (0-33); Albumin Level 4.1 g/dL (3.5-5.2); Alkaline Phosphatase 105 U/L (35-105); Aspartate Amino Transferase 15 U/L (0-32); Globulin 2.7 g/dL (1.3-4.6); Total Protein 6.8 g/dL (6.6-8.7)
[2025-10-04 09:05] LABS: Lactate (Lactic Acid level) 1.5 mmol/L (0.5-2.2)
[2025-10-04] MEDS: ferric gluconate 125 MG in sodium chloride 0.9% (100 ml) 100 ML 110 MG IV (09:22)
[2025-10-04] MEDS: FUROsemide 10 mg/mL SDV 2mL 20 MG IVP (09:23)
--- NOTE | 2025-10-04 10:03 | PC.PHAR ---
Went to room twice for med rec. Pt unable to stay awake for any questions Pt states she uses [facility]. Phoned them for current med list. Pt is actively taking both Gabapentin 300mg tid last fill 09/10/25 60ds and Pregabalin 300mg bid last fill 09/10/25 60ds. Pharmacy states pt picked both of them up.
--- NOTE | 2025-10-04 17:20 | P.MISC_ITS ---
Miscellaneous Note Purpose of Documentation: Follow-up postadmission: Patient examined, currently stable General: Alert and oriented, lying comfortably without any distress HEENT: Normocephalic, atraumatic, grossly unremarkable exam Cardio: normal rate rhythm, normal S1-S2 without any murmurs, rubs, or gallops and JVD normal Respiratory: normal vascular breathing on auscultation without any wheezes, stridor, rhonchi GI: Abdomen soft, mild tender on deep palpation, no organomegaly,, nondistended, normoactive bowel sounds present all 4 quadrants, Neuro: intact cranial nerves motor and sensory and cerebellar/coordination function without any focal neurological deficit Behavior: Appropriate and cooperative Extremities: Unequal and feeble pulses however palpable and peripheries are well-perfused Shiny skin and features of peripheral artery disease are evident l Note: Assessment: Abdominal pain secondary to chronic mesenteric ischemia Patient's status post hydration, lactate improving and on antiplatelet therapy Improved, continue to monitor Medication reconciled The patient abdominal pain worsens, with unstable hemodynamics or objective parameters of severe acute on chronic mesenteric ischemia then to consider transfer of high-level care involving vascular surgeon or interventional radiologist? Rest of the comorbidities have been reviewed and medications continued accordingly Patient condition has been discussed at length with the patient/family, I have independently reviewed the chart labs imaging/diagnostics/EKG. the goals of care and code status with the patient/family/NOK/legal footwear sales representative, and documented accordingly. I have reconciled the medications after confirmation/comorbidities/current clinical condition. The management has been done according to the current clinical condition with respect to patient goals of care and based on recommendations/guidelines. The patient/family has been informed about the current condition and further plan of care. Agreed with the plan of care and understood without any language barrier. Every effort was made to ensure accuracy of industrial organization manager. Any obvious errors or omissions should be clarified with the author of the document.
[2025-10-04] MEDS: insulin glargine 100 units/1 mL 50 UNIT SUBCUT (17:25)
[2025-10-04] MEDS: morphine ER (12 HR) 30 mg tablet 60 MG PO (22:20)
[2025-10-05] VITALS (13 sets, daily range): BP systolic 93–159; BP diastolic 52–85; PULSE 86–122; RESP 16–22; TEMP 36.4–37; O2SAT 91–99
[2025-10-05] MEDS: insulin glargine 100 units/1 mL 50 UNIT SUBCUT ×2 (04:29→16:45)
[2025-10-05] MEDS: lactulose oral liq 20 gm/30 mL UDC 10 GM PO ×3 (04:30→16:14)
[2025-10-05] MEDS: oxybutynin chloride XL 5 MG TABLET 20 MG PO (04:31)
[2025-10-05] MEDS: oxyCODONE 5 mg IR Tab/Cap PO (04:48)
[2025-10-05 05:00] LABS: Hematocrit 26.9 % (36-47); Hemoglobin 7.40 g/dL (11.27-16.99); Mean Corpuscular HGB Conc 27.5 g/dL (30-55); Mean Corpuscular Hemoglobin 17.4 pg (27-33); Mean Corpuscular Volume 63.3 fl (85-98); Nucleated Red Blood Cells % 0.2 %; Platelet Count 418 10^3/cmm (157-399); Red Blood Count 4.25 10^6/uL (3.85-5.65); White Blood Count 11.80 10^3/uL (3.29-11.43)
[2025-10-05 05:24] LABS: Anion Gap 16.1 (5-19); Blood Urea Nitrogen 13 mg/dL (6-20); Calcium 8.6 mg/dL (8.5-10.5); Carbon Dioxide 22 mmol/L (22-29); Chloride 101 mmol/L (98-107); Glucose 201 mg/dL (65-115); Osmolality Calculated 286 mOsm/kg (285-295); Potassium 4.1 mmol/L (3.5-5.1); Sodium 135 mmol/L (136-145)
[2025-10-05] MEDS: ferric gluconate 125 MG in sodium chloride 0.9% (100 ml) 100 ML 110 MG IV (08:38)
[2025-10-05] MEDS: morphine ER (12 HR) 30 mg tablet 60 MG PO (10:26)
--- NOTE | 2025-10-05 11:06 | PC.CHAP ---
Pastoral Care Encounter/Spiritual Assessment Type of Contact [] Declined insulation sprayer visit [] Patient/Family/Request visit [] Outpatient visit [] Follow-up visit [] Physician referral [] Code/Alert [x] Routine visit [] Staff referral [] Actively dying [] Patient sleeping [] Family support [] [] Out of room [] Palliative care [] [] Receiving care in room [] Pre-surgical visit [] Trauma [] Long length of stay [] ICU visit [] Other: Relational/Emotional Strength [x] Patient feels connected with others/family/visitors/staff [] Distress [] Loneliness/isolation [] Abandonment Spirituality of Patient [x] Person of Mary [x] Attends Zoroastrian of their Mary [x] Believes in Prayer [] Reads Bible or Shinto materials [] There are Spiritual issues to be addressed Digital Watch Assembler Interventions [x] Prayer [x] Active listening [x] Non-anxious presence [] Spiritual/emotional support [] Crisis/trauma care [] Spiritual counseling [] Bereavement support [] Provided bereavement packet [] Provided Bible/devotional materials [] Provided toy/stuffed animal, coloring book to patient or family member [] Provided Communion [] Anointing/[place] [] Salvation [] Completed spiritual assessment [] Other: Impact on Illness or Injury [] Angry [] Fearful [] Anxious [] Often cries [] Exhaustion [] Unable to work [] Unable to attend baptism [] Unable to walk/stand [] Unable to read [] Unable to drive [] Unable to eat/drink [] Unable to sleep [] Unable to be with family [] Patient intubated [] Other: Summary Prayer, Going Home soon Time spent with patient 20 Min
[2025-10-05 13:12] LABS: Hematocrit 28.0 % (36-47); Hemoglobin 7.80 g/dL (11.27-16.99); Mean Corpuscular HGB Conc 27.9 g/dL (30-55); Mean Corpuscular Hemoglobin 17.7 pg (27-33); Mean Corpuscular Volume 63.6 fl (85-98); Nucleated Red Blood Cells % 0.2 %; Platelet Count 482 10^3/cmm (157-399); Red Blood Count 4.40 10^6/uL (3.85-5.65); White Blood Count 13.60 10^3/uL (3.29-11.43)
--- NOTE | 2025-10-05 14:33 | PM.PN ---
Subjective Subjective: Patient was seen in the morning, doing well. Still having mild abdominal pain but is relatively better Labs reviewed patient having mild anemia but no obvious signs of bleeding. Possible chronic in nature Continue to monitor Vitals/I&O/Wt Last Vital Signs Temp 98.3 F 10/05/25 11:22 Pulse 115 H 10/05/25 11:22 Resp 18 10/05/25 11:22 BP 120/65 10/05/25 11:22 Pulse Ox 92 10/05/25 11:22 O2 Del Method Room Air 10/05/25 11:22 O2 Flow Rate 2 10/05/25 01:45 10/04/25 10/05/25 10/05/25 22:59 06:59 14:59 Intake Total 710 / 2143.333 840 / 2983.333 950 / 950 Output Total 1600 / 3600 1600 / 5200 750 / 750 Balance -890 / -1456.667 -760 / -2216.667 200 / 200 Weight last 48 hrs Weight 116.261 kg Weight 104.462 kg Weight 97.522 kg Weight 97.522 kg Physical Exam Narrative: General: Alert and oriented, lying comfortably without any distress HEENT: Normocephalic, atraumatic, grossly unremarkable exam Cardio: normal rate rhythm, normal S1-S2 without any murmurs, rubs, or gallops and JVD normal Respiratory: normal vascular breathing with mild wheezes but no stridor or crackles GI: Abdomen soft, mild tender on deep palpation, no organomegaly,, nondistended, normoactive bowel sounds present all 4 quadrants, Neuro: intact cranial nerves motor and sensory and cerebellar/coordination function without any focal neurological deficit Behavior: Appropriate and cooperative Extremities: Unequal and feeble pulses however palpable and peripheries are well-perfused Shiny skin and features of peripheral artery disease are evident. Patient has bilateral foot stumps, no concerns Urinary Catheter Management: 2-way Urethral: Cath Placed During This Visit: yes Reason for Continuing Indwelling Catheter: Acute Urinary Retention or Obstruction Urinary Catheter Date of Insertion: 10/04/25 Urinary Catheter Time of Insertion: 06:38 Data 10/05/25 13:04 10/05/25 03:59 Micro: Microbiology 10/04/25 01:45 Urine Culture - Preliminary Urine,Clean Catch Gram Negative Rods A&P Assessment and plan 1. Chronic mesenteric ischemia: Patient has chronic recurring lactic acidosis and symptoms of constipation and diarrhea currently improved after adequate hydration The patient still had chronic ongoing pain, no obvious bleeding episode CBC showed mild anemia, anemia workup showed mixed picture iron deficiency anemia but leaning towards more iron deficiency anemia and to continue on iron replacement. CBC to monitor Continue aspirin and Plavix 2. Urinary retention: Bladder was distended on CT scan. Patient passing adequate amount of urine continue to monitor 3. 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 Butt for diabetic disease. The feet stumps look healthy currently without ulceration Continue anticoagulation as per her home medication, with ticagrelor and cilostazol Having mild tachycardia started on beta-nany metoprolol 12.5 mg twice daily 4. Type 2 diabetes mellitus with diabetic polyneuropathy, unspecified whether termite control service representative insulin use: Continue gabapentin for neuropathy. Continue Lantus 50 units twice a day and start sliding scale insulin 5. CAD (coronary artery disease): Recent stent to RCA in-stent restenosis on 09/05/2025 Started patient on beta-nany 12.5 mg twice daily 6. Moderate aortic stenosis: Stable 7. Leukocytosis, unspecified type: Possible stress related secondary to chronic mesenteric ischemia, no signs and symptoms of active infection however patient urine cultures growing gram-negative rods In the light of given risk and benefits, to start patient on ceftriaxone 1 g daily and to monitor Follow the final culture and sensitivity 8. Lactic acidosis: Resolved after adequate hydration, Continue to monitor 9. Sleep apnea-like behavior: Recommends workup for sleep apnea outpatient PDMP PDMP Reviewed: Not Reviewed Attestations Medical Necessity Statement*: Patient will stay overnight for monitoring of her anemia and to follow the urine culture sensitivity, If stable for possible tomorrow discharge Time Spent in Patient Care: 16 - 35 minutes (>than 50% of time spent in counselling and/or direct pt care on unit). Other Attestations: Patient condition has been discussed at length with the patient/family, I have independently reviewed the chart labs imaging/diagnostics/EKG. the goals of care and code status with the patient/family/NOK/legal escrow representative, and documented accordingly. I have reconciled the medications after confirmation/comorbidities/current clinical condition. The management has been done according to the current clinical condition with respect to patient goals of care and based on recommendations/guidelines. The patient/family has been informed about the current condition and further plan of care. Agreed with the plan of care and understood without any language barrier. Every effort was made to ensure accuracy of interventional radiologist. Any obvious errors or omissions should be clarified with the author of the document. Coding Level of Care Code 01388 Diagnoses Chronic mesenteric ischemia K55.1 Urinary retention R33.9 PAD (peripheral artery disease) I73.9 Type 2 diabetes mellitus with diabetic polyneuropathy, unspecified whether termite control service representative insulin use E11.42 Diabetes mellitus group home insulin use: unspecified group home insulin use status CAD (coronary artery disease) I25.110 Associated angina: with unstable angina Coronary Disease-Associated Artery/Lesion type: unspecified vessel or lesion type [place] vs. transplanted heart: [place] heart Moderate aortic stenosis I35.0 Leukocytosis, unspecified type D72.829 Leukocytosis type: unspecified Lactic acidosis E87.20 Sleep apnea-like behavior G47.39
[2025-10-05] MEDS: cefTRIAXone 1,000 mg SDV 1000 MG IVP (19:30)
[2025-10-06] VITALS (91 sets, daily range): BP systolic 86–172; BP diastolic 51–117; PULSE 97–205; RESP 9–36; TEMP 36.5–38.5; O2SAT 71–98; BMI 38.9
--- NOTE | 2025-10-06 02:59 | XRR_ITS ---
PROCEDURE INFORMATION: Exam: XR Chest Exam date and time: 10/06/2025 3:10 AM Age: 60 years old Clinical indication: Shortness of breath and wheezing; Prior surgery; Surgery date: 6+ months; Surgery type: Coronary stents; SOB with wheezing; Additional info: Patient condition change TECHNIQUE: Imaging protocol: Radiologic exam of the chest. Views: 1 view. COMPARISON: CR (CHEST, ) 10/04/2025 1:32 AM FINDINGS: Lungs: Pulmonary vascular congestion. Cardiomegaly. Correlate for congestive heart failure. Pleural spaces: Unremarkable. No pleural effusion. No pneumothorax. Heart/Mediastinum: See Lungs finding. Bones/joints: Unremarkable. XR/XR chest 1V portable [id number] IMPRESSION: Pulmonary vascular congestion. Cardiomegaly. Correlate for congestive heart failure.
[2025-10-06 03:16] LABS: Hematocrit 28.3 % (36-47); Hemoglobin 7.70 g/dL (11.27-16.99); Mean Corpuscular HGB Conc 27.2 g/dL (30-55); Mean Corpuscular Hemoglobin 17.7 pg (27-33); Mean Corpuscular Volume 65.2 fl (85-98); Nucleated Red Blood Cells % 1.3 %; Platelet Count 522 10^3/cmm (157-399); Red Blood Count 4.34 10^6/uL (3.85-5.65); White Blood Count 24.79 10^3/uL (3.29-11.43)
[2025-10-06 03:19] LABS: ABG PCO2 37.0 mmHg (35-45); ABG PH Result 7.27 (7.35-7.45); Alveolar-Arterial Oxygen Gradi 4.1 mmHg (5-10); Arterial Blood Gas Hematocrit 25.8 % (37-47); Blood Gas LPM 5.0 %; Blood Gas Sample Site Brachial, right; Blood Gas Sample Type Arterial; Carboxyhemoglobin 1.5 %THgb (0.4-20.1); Glucose Level-ABG 316.0 mg/dL (70-115); HCO3 ABG 17.0 mmol/L (22-26); Ionized Calcium Level - ABG 1.2 mmol/L (1.1-1.4); Methemoglobin 1.1 % (0.4-1.5); Oxygen Saturation ABG 93.0; PO2 ABG 73.3 mmHg (80.0-100.0); Potassium Level - ABG 4.6 mmol/L (3.5-5.0); Sodium Level - ABG 133.0 mmol/L (131-143)
[2025-10-06 03:41] LABS: Alanine Aminotransferase 97 U/L (0-33); Albumin Level 3.8 g/dL (3.5-5.2); Alkaline Phosphatase 98 U/L (35-105); Anion Gap 27.3 (5-19); Aspartate Amino Transferase 249 U/L (0-32); Blood Urea Nitrogen 22 mg/dL (6-20); Calcium 8.7 mg/dL (8.5-10.5); Carbon Dioxide 14 mmol/L (22-29); Chloride 94 mmol/L (98-107); Globulin 2.5 g/dL (1.3-4.6); Glucose 351 mg/dL (65-115); Osmolality Calculated 287 mOsm/kg (285-295); Potassium 5.3 mmol/L (3.5-5.1); Sodium 130 mmol/L (136-145); Total Protein 6.3 g/dL (6.6-8.7)
--- NOTE | 2025-10-06 03:47 | PM.PN ---
Subjective Subjective: I am called to evaluate 60-year-old female who responded briefly to Narcan but then this more drowsy again. She is minimally responsive and RT reports that she was suctioned with minimal discomfort. Patient's lungs sound wet. She has not been eating or drinking this shift. Patient's home meds were resumed including Lyrica 300 mg twice a day gabapentin 300 mg 3 times daily and morphine. She received a dose of MS Contin 60 mg twice a day reconciled from med rec which has since been removed from her home med rec and also discontinued from her meds once sedation noted. Vitals/I&O/Wt Last Vital Signs Temp 101.3 F H 10/06/25 03:06 Pulse 129 H 10/06/25 03:06 Resp 20 H 10/06/25 02:41 BP 87/59 10/06/25 03:06 Pulse Ox 92 10/06/25 03:06 O2 Del Method Nasal Cannula 10/06/25 03:06 O2 Flow Rate 5 10/06/25 03:06 10/05/25 10/05/25 10/06/25 14:59 22:59 06:59 Intake Total 950 / 950 Output Total 750 / 750 Balance 200 / 200 Weight last 48 hrs Weight 116.261 kg Weight 104.462 kg Weight 97.522 kg Physical Exam Narrative: General Well-developed obese female with shallow breathing. Lungs sound wet with rhonchi bilaterally left worse than right CV regular tachycardic rate and rhythm Abdomen soft obese Calves no tenderness cords or pretibial edema Skin warm and dry Mentation patient sleeping soundly despite commotion in the room. With sternal rub she arouses and opens eyes briefly then falls back to sleep. Urinary Catheter Management: 2-way Urethral: Cath Placed During This Visit: yes Reason for Continuing Indwelling Catheter: Acute Urinary Retention or Obstruction Urinary Catheter Date of Insertion: 10/04/25 Urinary Catheter Time of Insertion: 06:38 Data 10/06/25 03:07 10/06/25 03:07 Micro: Microbiology 10/04/25 01:45 Urine Culture - Preliminary Urine,Clean Catch Gram Negative Rods CXR: My impression: Bilateral diffuse infiltrates potentially viral pneumonia versus atypical Radiologist's impression: Bilateral pulmonary vascular congestion suspicious for heart failure ABG Interpretation 1: 10/06/25 03:05 ABG pH 7.27 L ABG pCO2 37.0 ABG pO2 73.3 L ABG HCO3 17.0 L ABG O2 Saturation 93.0 ABG Base Excess -9.2 L A&P Assessment and plan 1. Acute hypoxemic respiratory failure: Patient now requiring 5 L. She has received Narcan 2 doses with some improvement but incomplete. ABG shows actually no CO2 retention despite being on oxygen and obtunded. Will start BiPAP. Chest x-ray shows bilateral infiltrates suspicious for atypical pneumonia or viral pneumonia. Will send a respiratory panel. Radiologist read this as heart failure however patient is 3700 cc negative this admission and chest x-ray is worsened from admit chest x-ray. Respiratory panel sent for atypical pneumonia potentially being viral and she is covered with Levaquin 2. Altered mental status: As above some improvement Narcan. Patient is Lyrica, gabapentin, Seroquel, morphine doses are large and will be held. Will in particular to the Lyrica dose seems to be large at 300 mg twice a day. The morphine initially on the med rec seems to have been removed so patient may have received a dose larger than what she actually takes based on that. 3. Chronic mesenteric ischemia: Patient has chronic recurring lactic acidosis and symptoms of constipation and diarrhea currently improved after adequate hydration Continue aspirin and Plavix Patient with metabolic acidosis and ABG shows pCO2 of 37 with pH 7.27. Will check lactic acid level and give fluid bolus 4. Urinary retention: Bladder was distended on CT scan. Patient passing adequate amount of urine continue to monitor. Urine with only 6-10 white cells but 4+ bacteria nitrate positive and leukocyte esterase negative. She is already on Rocephin. Will add Levaquin due to possibility of pneumonia 5. 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 Butt for diabetic disease. The feet stumps look healthy currently without ulceration Continue anticoagulation as per her home medication, with ticagrelor and cilostazol Having mild tachycardia started on beta-nany metoprolol 12.5 mg twice daily 6. Type 2 diabetes mellitus with diabetic polyneuropathy, unspecified whether ocean transportation intermediary insulin use: Continue gabapentin for neuropathy. Continue Lantus 50 units twice a day and start sliding scale insulin 7. CAD (coronary artery disease): Recent stent to RCA in-stent restenosis on 09/05/2025 Started patient on beta-nany 12.5 mg twice daily 8. Moderate aortic stenosis: Stable 9. Leukocytosis, unspecified type: Possible stress related secondary to chronic mesenteric ischemia, no signs and symptoms of active infection however patient urine cultures growing gram-negative rods In the light of given risk and benefits, to start patient on ceftriaxone 1 g daily and to monitor Follow the final culture and sensitivity. Chest x-ray suspicious for atypical pneumonia 10. Lactic acidosis: Will recheck 11. Sleep apnea-like behavior: Recommend workup for sleep apnea outpatient but with obtundation her CO2 was not high this evening PDMP PDMP Reviewed: Not Reviewed Attestations Medical Necessity Statement*: Patient is transferred to the ICU with acute respiratory failure and hypoxemia and will require greater than 2 midnights Critical Care Time: Critical Care Time (min): 60 Coding Level of Care Code Critical Care >/= 30 minutes Critical care time (in minutes): 60 The high probability of a clinically significant, sudden or life threatening deterioration, as referenced in this documentation, required my full and direct attention, intervention and personal management. The critical care time shown is in addition to time spent performing any reported separately billable procedures and includes the following: [x] Data and vital sign review and interpretation [x] Patient assessment, examination and intervention [x] Medication orders and management [x] Patient/Family updates as able [x] Care Coordination and Documentation. Diagnoses Acute hypoxemic respiratory failure J96.01 Altered mental status R41.82 Chronic mesenteric ischemia K55.1 Urinary retention R33.9 PAD (peripheral artery disease) I73.9 Type 2 diabetes mellitus with diabetic polyneuropathy, unspecified whether halfway insulin use E11.42 Diabetes mellitus halfway insulin use: unspecified ocean transportation intermediary insulin use status CAD (coronary artery disease) I25.110 Associated angina: with unstable angina Coronary Disease-Associated Artery/Lesion type: unspecified vessel or lesion type [place] vs. transplanted heart: [place] heart Moderate aortic stenosis I35.0 Leukocytosis, unspecified type D72.829 Leukocytosis type: unspecified Lactic acidosis E87.20 Sleep apnea-like behavior G47.39 Time Spent (min) 60 Comment [id number]
[2025-10-06 04:10] LABS: Ammonia 80 umol/L (11-51)
--- NOTE | 2025-10-06 04:22 | PC.NURSE ---
This nurse attempted to contact patients family to inform them of patient being transferred to ICU.
[2025-10-06 04:35] LABS: Lactate (Lactic Acid level) 6.2 mmol/L (0.5-2.2)
--- NOTE | 2025-10-06 04:53 | PC.NURSE ---
This nurse talked to patients son Adrian at 0430 and advised him of patients transfer to ICU
[2025-10-06] MEDS: methylPREDNISolone sod succ 125 mg/2 mL INJ 60 MG IVP ×4 (05:12→21:33)
[2025-10-06] MEDS: insulin glargine 100 units/1 mL 50 UNIT SUBCUT ×2 (05:12→16:13)
--- NOTE | 2025-10-06 06:34 | PC.NURSE ---
PO meds: Patient unable to take PO meds, Dr. Hickman gave order to leave PO meds late on DEC for next shift to potentially give if patient arouses.
[2025-10-06 06:40] LABS: Coronavirus 229E,HKU1,NL63,OC4 Not Detected (NOT DETECT); Parainfluenza Virus Type 1 Not Detected (NOT DETECT); Parainfluenza Virus Type 2 Not Detected (NOT DETECT); Parainfluenza Virus Type 3 Not Detected (NOT DETECT); Parainfluenza Virus Type 4 Not Detected (NOT DETECT); SARS-COV-2 Not Detected (NOT DETECT)
--- NOTE | 2025-10-06 08:40 | CTR_ITS ---
PROCEDURE INFORMATION: Exam: CT Head Without Contrast Exam date and time: 10/06/2025 9:00 AM Age: 60 years old Clinical indication: Altered mental status/memory loss; Confusion or disorientation; Additional info: Altered mentation to rule out stroke TECHNIQUE: Imaging protocol: Computed tomography of the head without contrast. Radiation optimization: All CT scans at this facility use at least one of these dose optimization techniques: automated exposure control; mA and/or kV adjustment per patient size (includes targeted exams where dose is matched to clinical indication); or iterative reconstruction. COMPARISON: CT head wo con* [id number] 01/05/2023 5:45 PM RADIATION DOSE METRICS: Total DLP (mGy-cm): 935.28 FINDINGS: Brain: There is symmetric atrophy. No hemorrhage. Unremarkable white matter. No mass effect. Cerebral ventricles: No ventriculomegaly. Paranasal sinuses: There is patchy ethmoid mucosal thickening. Mastoid air cells: Visualized mastoid air cells are well aerated. Bones: Unremarkable. No acute fracture. Soft tissues: Unremarkable. CT/CT head wo con* [id number] IMPRESSION: 1. No acute intracranial CT findings. 2. Sinusitis.
[2025-10-06 09:16] LABS: Hematocrit 26.9 % (36-47); Hemoglobin 7.70 g/dL (11.27-16.99); Mean Corpuscular HGB Conc 28.6 g/dL (30-55); Mean Corpuscular Hemoglobin 17.9 pg (27-33); Mean Corpuscular Volume 62.4 fl (85-98); Nucleated Red Blood Cells % 0.4 %; Platelet Count 441 10^3/cmm (157-399); Red Blood Count 4.31 10^6/uL (3.85-5.65); White Blood Count 22.63 10^3/uL (3.29-11.43)
[2025-10-06] MEDS: FUROsemide 10 mg/mL SDV 4mL 40 MG IVP (09:21)
[2025-10-06] MEDS: levofloxacin-dextrose 5 % 750 MG/150 ML PREMIX 100 MG IV (09:27)
[2025-10-06] MEDS: ferric gluconate 125 MG in sodium chloride 0.9% (100 ml) 100 ML 110 MG IV (09:30)
[2025-10-06 09:33] LABS: Alanine Aminotransferase 132 U/L (0-33); Albumin Level 3.8 g/dL (3.5-5.2); Alkaline Phosphatase 94 U/L (35-105); Anion Gap 17.4 (5-19); Aspartate Amino Transferase 343 U/L (0-32); Blood Urea Nitrogen 21 mg/dL (6-20); Calcium 8.4 mg/dL (8.5-10.5); Carbon Dioxide 20 mmol/L (22-29); Chloride 100 mmol/L (98-107); Globulin 3.3 g/dL (1.3-4.6); Glucose 187 mg/dL (65-115); Osmolality Calculated 284 mOsm/kg (285-295); Potassium 4.4 mmol/L (3.5-5.1); Sodium 133 mmol/L (136-145); Total Protein 7.1 g/dL (6.6-8.7)
[2025-10-06 09:35] LABS: Lactate (Lactic Acid level) 1.0 mmol/L (0.5-2.2)
[2025-10-06 09:48] LABS: ABG PCO2 36.6 mmHg (35-45); ABG PH Result 7.34 (7.35-7.45); Alveolar-Arterial Oxygen Gradi 21.0 mmHg (5-10); Arterial Blood Gas Hematocrit 26.0 % (37-47); Blood Gas Allen Test Pos; Blood Gas LPM 5.0 %; Blood Gas Operator Identificat BROMA; Blood Gas Sample Site Radial, right; Blood Gas Sample Type Arterial; Carboxyhemoglobin 1.4 %THgb (0.4-20.1); Glucose Level-ABG 200.0 mg/dL (70-115); HCO3 ABG 19.9 mmol/L (22-26); Ionized Calcium Level - ABG 1.2 mmol/L (1.1-1.4); Methemoglobin 1.0 % (0.4-1.5); Oxygen Saturation ABG 96.6; PO2 ABG 80.9 mmHg (80.0-100.0); PO2 FiO2 Ratio Arterial Blood 202; Potassium Level - ABG 4.1 mmol/L (3.5-5.0); Sodium Level - ABG 138.0 mmol/L (131-143)
[2025-10-06 09:51] LABS: Thyroid Stimulating Hormone 1.83 uIU/mL (0.27-4.20)
--- NOTE | 2025-10-06 09:56 | PC.NURSE ---
Addendum entered by Leonel Sheikh RN 10/06/25 11:12: After assessment, Dr bishop ordered 40mG of IV lasix. OVer the next 2 hours since administration, patient voided 1800mL. Rhonchi and crackles are still present, but lung sounds are significantly improved. PT is continuing to void. Original Note: Morning assessment: Patient has an aletered mental status. Frequently yelling out help , Okay , and mommy . WHen nurse speaks to her she will turn her heard and look at the nurse, but doesn't seem to recognize that there is someone there. Frequently flailing arms about. Lung sounds are difficult to determine due to patient's movememnt, constant yelling out, and overall lack of cooperation.Very coarse and loud, unable to differentiate if I am hearing secretions or crackles. Nurse has concerns for fluid overload due to peripheral edema, potential crackles heard in lungs, history of CHF, and receiving a fluid bolus overnight. ALerted Dr bishop to concerns, Dejah will come to bedside to assess fluid status, in the meantime he has ordered head CT and repeat labs.
--- NOTE | 2025-10-06 09:58 | PHA.VACGOAL ---
Vancomycin Goal - Goal Vancomycin Goal:: 15-20 mg/L Vancomycin Indication:: Other (SEPSIS) - Therapy Current therapy:: Other Antibiotic (LEVOFLOXACIN) Day of therpy:: Day []of [] . Actual body weight (kg): 233 lb 11.04 oz - Data Labs: WBC 22.63 10^3/uL (3.29-11.43) H 10/06/25 09:09 RBC 4.31 10^6/uL (3.85-5.65) 10/06/25 09:09 Hgb 7.70 g/dL (11.27-16.99) L 10/06/25 09:09 Hct 26.9 % (36-47) L 10/06/25 09:09 MCV 62.4 fl (85-98) L 10/06/25 09:09 MCH 17.9 pg (27-33) L 10/06/25 09:09 MCHC 28.6 g/dL (30-55) L D 10/06/25 09:09 RDW 21.2 % (12.1-15.1) H 10/06/25 09:09 Sodium 133 mmol/L (136-145) L 10/06/25 09:09 Potassium 4.4 mmol/L (3.5-5.1) 10/06/25 09:09 Chloride 100 mmol/L (98-107) 10/06/25 09:09 Carbon Dioxide 20 mmol/L (22-29) L 10/06/25 09:09 Anion Gap 17.4 (5-19) 10/06/25 09:09 BUN 21 mg/dL (6-20) H 10/06/25 09:09 Creatinine 1.4 mg/dL (0.5-0.9) H 10/06/25 09:09 GFR Calculation 38.6 mL/min (90-130) L 10/06/25 09:09 Last dialysis session:: N/A Treatment plan:: new consult Regimen:: Laboratory Tests 10/05/25 10/05/25 10/06/25 03:59 13:04 03:07 WBC 13.60 H Creatinine 0.9 2.0 H 10/06/25 09:09 WBC 22.63 H Creatinine 1.4 H RECENT QIANA WITH SCr INCREASING SINCE YESTERDAY LOADING DOSE OF 2000 MG X 1 MAINTENANCE DOSE OF 1000 MG Q12H PER DOSING PROTOCOL Follow up:: WILL CONTINUE TO MONITOR AND FOLLOW UP DAILY
[2025-10-06] MEDS: oxybutynin chloride XL 5 MG TABLET 20 MG PO (10:49)
[2025-10-06] MEDS: lactulose oral liq 20 gm/30 mL UDC 10 GM PO ×2 (10:53→16:12)
--- NOTE | 2025-10-06 16:04 | PC.NURSE ---
SHift SUmmary: Activity: Stayed in bed throughout the day. Mentation: Improvement since this morning, but still obviously altered. Upon morning assessment she was lethargic, would have one word incomprehensible/mumbled responses. She is now awake, Alert, Frequently yelling out. Only oriented to self and is repeatedly yelling the phrases God help me , Mommy , and Kaushik come get me . Seems to be hallucinating conversations. Takes oral medications without issue. Head CT this morning was unremarkable. Total urine output: 2900mL
--- NOTE | 2025-10-06 16:40 | PC.NURSE ---
assumed care at this time
--- NOTE | 2025-10-06 17:53 | PM.PN ---
Subjective Subjective: Over 24 hours [facility] with high likelihood that patient was resumed on his home medications with high-dose long-acting morphine and gabapentin as per patient request since she was having ongoing abdominal pain which was bothering her every night and she could not sleep. Overnight physician was called in the night for her obtunded behavior and she was given Narcan for which she responded briefly and was drowsy again but able to protect her airways and arousable. The night physician auscultated and I also examined the patient in the morning, her lungs sounded wet which could be an element of atypical pneumonia versus aspiration pneumonia secondary to obtunded behavior. She was shifted to ICU, required close monitoring. Labs showed leukocytosis and high lactate. Ammonia level was 80. And mild renal derangement as well. After overnight physician management, and patient getting better since the half-life of morphine and gabapentin was weaning off, her repeat labs in the morning were getting better with her behavior as well. Based on leukocytosis and obtunded behavior I requested CT head and sepsis workup. CT head was unremarkable for any acute insult apart from sinusitis. Vitals/I&O/Wt Last Vital Signs Temp 98.1 F 10/06/25 13:15 Pulse 105 H 10/06/25 16:00 Resp 14 10/06/25 15:15 BP 118/66 10/06/25 16:00 Pulse Ox 92 10/06/25 16:00 O2 Del Method Nasal Cannula 10/06/25 16:00 O2 Flow Rate 5 10/06/25 16:00 FiO2 40 10/06/25 08:33 10/06/25 10/06/25 10/06/25 06:59 14:59 22:59 Intake Total 0 / 950 1000 / 1000 Output Total 350 / 1100 2900 / 2900 Balance -350 / -150 1000 / 1000 -2900 / -1900 Weight last 48 hrs Weight 106 kg Weight 116.261 kg Physical Exam Narrative: General: Disoriented lady, however able to respond to voice, looks at you and answers but sometimes just says help mom, and goes back to sleep.On 5 L saturating 92% and above. Easily arousable and able to protect her airways HEENT: Gross normal exam Cardio: Sinus tachycardia,, normal S1-S2 without any murmurs, limited exam because the patient is uncooperative Respiratory: Coarse crackles diffusely heard which could be due to fluid overload and also secretions, and also conducting sounds but no wheezes or crepitations GI: Abdomen soft, mild tender on deep palpation, no guarding and normal bowel sounds Neuro: Disoriented however no gross focal neurological defect appreciated Behavior: Uncooperative Extremities: Unequal and feeble pulses however palpable and peripheries are well-perfused, bilateral foot stumps appreciated without any concerns of the skin, mild trace edema bilaterally in the lower extremities Shiny skin and features of peripheral artery disease are evident. Patient has bilateral foot stumps, no concerns Urinary Catheter Management: 2-way Urethral: Cath Placed During This Visit: yes Reason for Continuing Indwelling Catheter: Accurate Measurement of Urinary Output in Critically Ill Patients Urinary Catheter Date of Insertion: 10/04/25 Urinary Catheter Time of Insertion: 06:38 Data 10/06/25 09:09 10/06/25 09:09 Micro: Microbiology 10/04/25 01:45 Urine Culture - Final Urine,Clean Catch Escherichia coli 10/06/25 10:22 Blood Culture - Preliminary Blood SPECIMEN COLLECTED 10/06/25 03:07 Blood Culture - Preliminary Blood SPECIMEN COLLECTED A&P Assessment and plan 1. Severe sepsis: Severe sepsis leading to acute encephalopathy 2 sets of blood cultures, urine cultures, chest x-ray showed bilateral infiltrates suggestive of congestive features and could be aspiration pneumonia versus atypical pneumonia? Lactate series showed improvement Maintain 2 IV bore cannulas Broad-spectrum antibiotics coverage levofloxacin and ceftriaxone to cover atypical pneumonia. IV bolus for sepsis was not given since the patient was having possible fluid overload features. Ultrasound liver since the patient is having transaminitis and could be due to sepsis versus congestion? Adequate perfusion and capillary refill present Adequate urine output present Intake and output monitoring Maintain MAP above 65 2. Altered mental status: High likelihood of obtunded/metabolic encephalopathy secondary to sedatives/analgesics with high-dose morphine and gabapentin which patient was taking at home and was resumed on the request of patient yesterday since she was having abdominal pain every night due to chronic mesenteric ischemia and was unable to sleep every day. Overnight the night physician shifted her to ICU and held her strong analgesics. She had features of atypical pneumonia which could be related to aspiration since she was obtunded and started on levofloxacin. CT head unremarkable for acute stroke Sepsis workup sent based on patient acute encephalopathy and leukocytosis. The patient is able to protect her airways. Patient labs repeated in the morning, lactate levels improved and overall improving Continue levofloxacin and vancomycin as pharmacist for protocol dosing Follow sepsis workup and MRSA Hold analgesic sedatives at the moment Fall precautions and reorientation Intake and output monitoring Neurochecks frequently Daily labs and monitoring with correction of electrolytes 3. Acute hypoxemic respiratory failure: Patient overnight got up started high likelihood secondary to high-dose analgesics which she was taking at home, Currently on 5 L, chest x-ray showed bilateral infiltrates which are more likely suggestive of pneumonia which could be aspirations since she was obtunded? However the read by radiology showed it has congestive features CRP 40 Lasix IV stat given, and currently better Lasix 40 mg IV as needed for shortness of breath Continue Levaquin, vancomycin as per pharmacist protocol Ceftriaxone for UTI. Follow sepsis workup, follow MRSA, if MRSA negative then discontinue vancomycin Hold fluids at the moment Monitor hemodynamics and keep the MAP above 65 Respiratory viral panel negative 4. Chronic mesenteric ischemia: Lactate improved Continue aspirin and Plavix Lactic acidosis improving, pH is better 5. Urinary retention: Bladder was distended on CT scan. Patient is resistant to levofloxacin, and having allergy to penicillins, ceftriaxone given and no allergy response, continue ceftriaxone. Her liver enzymes are creased however does not correlate with cholestatic pattern of ceftriaxone as alkaline phosphatase is normal, continue ceftriaxone Continue to monitor intake and output 6. 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 Butt for diabetic disease. The feet stumps look healthy currently without ulceration Continue anticoagulation as per her home medication, with ticagrelor and cilostazol Having mild tachycardia started on beta-nany metoprolol 12.5 mg twice daily 7. Type 2 diabetes mellitus with diabetic polyneuropathy, unspecified whether senior living insulin use: Continue gabapentin for neuropathy. Continue Lantus 50 units twice a day and start sliding scale insulin 8. CAD (coronary artery disease): Recent stent to RCA in-stent restenosis on 09/05/2025 Started patient on beta-nany 12.5 mg twice daily 9. Moderate aortic stenosis: Stable 10. Leukocytosis, unspecified type: Possible stress related secondary to chronic mesenteric ischemia, no signs and symptoms of active infection however patient urine cultures growing gram-negative rods In the light of given risk and benefits, to start patient on ceftriaxone 1 g daily and to monitor Follow the final culture and sensitivity. Chest x-ray suspicious for atypical pneumonia 11. Lactic acidosis: Currently improved after diuresis and antibiotics for the manage of severe sepsis 12. Sleep apnea-like behavior: Recommend workup for sleep apnea outpatient but with obtundation her CO2 was not high this evening PDMP PDMP Reviewed: Not Reviewed Attestations Medical Necessity Statement*: Patient will stay more than 2 midnights for acute cephalopathy and severe sepsis requiring ICU monitoring Time Spent in Patient Care: Greater than 35 minutes (>than 50% of time spent in counselling and/or direct pt care on unit). Critical Care Time: The high probability of a clinically significant, sudden or life threatening deterioration, as referenced in this documentation, required my full and direct attention, intervention and personal management. The critical care time shown is in addition to time spent performing any reported separately billable procedures and includes the following: [x] Data and vital sign review and interpretation [x] Patient assessment, examination and intervention [x] Medication orders and management [x] Patient/Family updates as able [x] Care Coordination and Documentation. Critical Care Time (min): 40 Other Attestations: I was unable to discuss patient current critical condition since the patient family or next of kin or guardian is not available around to discuss. Patient is altered. The care has been delivered in the best interest of the patient based on the patient current CODE STATUS. I have reviewed all the images/labs/investigations independently. Management as per internal based on the recommendation and guidelines and patient's current clinical condition. Coding Level of Care Code Critical Care >/= 30 minutes Diagnoses Severe sepsis A41.9; R65.20 Altered mental status R41.82 Acute hypoxemic respiratory failure J96.01 Chronic mesenteric ischemia K55.1 Urinary retention R33.9 PAD (peripheral artery disease) I73.9 Type 2 diabetes mellitus with diabetic polyneuropathy, unspecified whether senior living insulin use E11.42 Diabetes mellitus long term care administrator insulin use: unspecified long term care administrator insulin use status CAD (coronary artery disease) I25.110 Associated angina: with unstable angina Coronary Disease-Associated Artery/Lesion type: unspecified vessel or lesion type [place] vs. transplanted heart: [place] heart Moderate aortic stenosis I35.0 Leukocytosis, unspecified type D72.829 Leukocytosis type: unspecified Lactic acidosis E87.20 Sleep apnea-like behavior G47.39
[2025-10-06 18:53] LABS: CRP High Sensitivity Cardiac 14.600 mg/dL (0.0-0.3)
[2025-10-06] MEDS: cefTRIAXone 1,000 mg SDV 1000 MG IVP (19:47)
--- NOTE | 2025-10-06 22:16 | PC.NURSE ---
Addendum entered by ROSANGELA Iglesias 10/07/25 03:43: Patient became physically aggressive again after lab entered patients room to draw morning labs. Patient awoke and began attempting to hit staff and rip bipap off. Attempts at verbal deescalation unsuccessful and patient grew increasingly agitated. PRN Haldol administered. Addendum entered by ROSANGELA Iglesias 10/07/25 00:42: PRN Furosemide administered as patients lungs sounding more wet and patients work of breathing was still very labored, even on bipap. Addendum entered by ROSANGELA Iglesias 10/07/25 00:03: notified and gave orders for HS Seroquel to be administered as well as 0.5mg IVP Haldol. During the period of time provider and pharmacy were being contacted, patient continued with physical aggression and removal of oxygen. IRAM Gregorio and other nurses went into patients room and placed patient on non-rebreather mask, while this nurse notified RT. In spite of medications being administered patient continued to fight treatment and RT placed patient on bipap due to patients labored breathing. Patients respirations continued to remain 45-50 and heartrate in the 130s. Patient continuously making attempts to remove bipap as well. notified and gave orders for 1mg IVP Lorazepam once. Order placed. See MAR. Original Note: Patient is becoming physically aggressive, continues yelling constantly, swearing, removing nasal canula, refusing medication by spitting it out and refusing to swallow medication. Patient yells mommy, what about it and other phrases repeatedly. Numerous attempts continue to be made at convincing patient to take medications. Patients mentation status is that she is not able to tell staff her name.
[2025-10-06] MEDS: haloperidol inj 5 mg/mL INJ 1 mL 2.5 MG IVP (23:11)
[2025-10-07] VITALS (98 sets, daily range): BP systolic 87–185; BP diastolic 52–133; PULSE 108–144; RESP 7–36; TEMP 36.7–37.3; O2SAT 82–98
[2025-10-07] MEDS: LORazepam 2 mg/mL INJ 1 mL 1 MG IVP (00:18)
[2025-10-07] MEDS: FUROsemide 10 mg/mL SDV 4mL 40 MG IVP ×2 (00:33→14:14)
[2025-10-07] MEDS: haloperidol inj 5 mg/mL INJ 1 mL 2.5 MG IVP ×2 (03:30→12:44)
[2025-10-07 04:01] LABS: Hematocrit 25.5 % (36-47); Hemoglobin 7.20 g/dL (11.27-16.99); Mean Corpuscular HGB Conc 28.2 g/dL (30-55); Mean Corpuscular Hemoglobin 17.8 pg (27-33); Mean Corpuscular Volume 63.1 fl (85-98); Nucleated Red Blood Cells % 0.2 %; Platelet Count 455 10^3/cmm (157-399); Red Blood Count 4.04 10^6/uL (3.85-5.65); White Blood Count 21.84 10^3/uL (3.29-11.43)
[2025-10-07 04:20] LABS: Alanine Aminotransferase 119 U/L (0-33); Albumin Level 3.3 g/dL (3.5-5.2); Alkaline Phosphatase 84 U/L (35-105); Anion Gap 19.3 (5-19); Aspartate Amino Transferase 222 U/L (0-32); Blood Urea Nitrogen 25 mg/dL (6-20); Calcium 8.6 mg/dL (8.5-10.5); Carbon Dioxide 22 mmol/L (22-29); Chloride 103 mmol/L (98-107); Globulin 3.1 g/dL (1.3-4.6); Glucose 176 mg/dL (65-115); Osmolality Calculated 301 mOsm/kg (285-295); Potassium 3.3 mmol/L (3.5-5.1); Sodium 141 mmol/L (136-145); Total Protein 6.4 g/dL (6.6-8.7)
--- NOTE | 2025-10-07 05:43 | PC.NURSE ---
notified of update in patients status regarding swallowing and possible safety issues, and he gave orders to hold PO meds til 0800 and reevaluate.
[2025-10-07] MEDS: insulin glargine 100 units/1 mL 50 UNIT SUBCUT ×2 (05:56→16:44)
[2025-10-07] MEDS: methylPREDNISolone sod succ 125 mg/2 mL INJ 60 MG IVP ×4 (05:56→21:59)
[2025-10-07] MEDS: ferric gluconate 125 MG in sodium chloride 0.9% (100 ml) 100 ML 110 MG IV (08:56)
--- NOTE | 2025-10-07 10:05 | PC.SOCIAL ---
IMM Update pg 2 of IMM not updated as patient is confused. Copy left @ bedside and copy dated, initialed and placed in chart.
--- NOTE | 2025-10-07 11:11 | PC.NURSE ---
Baseline mentation: Patients son Adrian called. States states that she is altered at her baseline. She frequently forgets who she is, where she is, and the situation, but does occaisonally have good days as well. She has a very poor memory. Over the past few months, she frequently chokes on food and states she has trouble swallowing. He states that he has been trying very hard to keep her out of a intermediate, but caring for her is more and more difficult. Nurse alerted Dr Soriano to this information.
[2025-10-07] MEDS: lidocaine 1% 5 ML in potassium chloride premix 100 ML 52.5 ML IV (12:16)
--- NOTE | 2025-10-07 13:06 | PC.NURSE ---
Patient Behavior: at approximately 1230, patient became agitated rather suddenly. Attempting to get out of be when she is to unsteady to safely do so and unable to follow safety instructions. Patient is attempting to punch and kick staff, pulls off her monitoring, and will not keep her nasal cannula in. Frequently yelling out for someone to help her. Because of her agitation/aggression, and without her supplemental oxygen, her o2 sats are dropping as low as 80%. Patient is in respiratory distress and it is quickly worsening. Verbal attempts as de-escalation have failed. Nurse adminsitered PRN haldol, and was able to hold an oxy mask in front of patient face to provide blow by oxygen. With these interventions she became calmer and her o2 saturations improved. Patient calmed down enough to eventually allow replacement of nasal cannula. Nurse alerted Dr bishop to these events.
[2025-10-07] MEDS: levofloxacin-dextrose 5 % 750 MG/150 ML PREMIX 100 MG IV (16:47)
--- NOTE | 2025-10-07 17:55 | PC.NURSE ---
SHift SUmmary: Mentation: Contiunues to be confused. Will occasionally yell out profanities or yell for mommy or someone named erika. She did have a period of agitation and aggression requiring haldol as she was starting to go into respiratory distress without her nasal cannula in (see earlier nurse note) Respiratory: has stayed on 5L NC all day, though she would require less if she was taking it out so frequently. Breath sounds have been variable, often sounds like she has upper airway secretions which she is failing to clear, and intermittent crackles. Lasix was effective at reducing the sound of crackles. Urine output: 2600mL
--- NOTE | 2025-10-07 18:58 | USR_ITS ---
PROCEDURE INFORMATION: Exam: US Abdomen; Limited Exam date and time: 10/07/2025 8:26 AM Age: 60 years old Clinical indication: Abnormal findings; Abnormal lab test; Other: Transaminitis TECHNIQUE: Imaging protocol: Real time ultrasound of the abdomen with image documentation. Limited exam focused on the region of clinical interest. COMPARISON: US renal BI* [id number] 08/18/2022 2:45 PM FINDINGS: Technologist note states technically difficult study due to habitus and patient cooperation. On images presented, visualized liver appears homogeneous and no demonstrable masses. Gallbladder measures up to 3.7 cm in diameter toward upper limits. Shows no wall thickening or demonstrable calculi. No ductal dilatation. Pancreas obscured by bowel gas. Upper abdominal aorta obscured by bowel gas. Upper inferior vena cava normal diameter. Right kidney shows no mass or hydronephrosis. US/US liver [id number] IMPRESSION: 1. Pancreas and aorta obscured by bowel gas. 2. Otherwise no acute findings.
--- NOTE | 2025-10-07 19:06 | PC.NURSE ---
MIssed medications: Patient DId not receive any PO meds today due to lack of cooperation/refusal. Physician notified.
[2025-10-07] MEDS: cefTRIAXone 1,000 mg SDV 1000 MG IVP (20:05)
[2025-10-07] MEDS: LORazepam 2 mg/mL INJ 1 mL 0.5 MG IVP (20:11)
--- NOTE | 2025-10-07 20:26 | PC.NURSE ---
Addendum entered by ROSANGELA Iglesias 10/07/25 22:45: Unable to administer PO meds due to patient being lethargic, combative and uncooperative. Original Note: Patient cleaned up and bedding all changed at the beginning of the shift in an attempt to calm patient and make her more comfortable. Patient continued to grow increasingly agitated and becoming more aggressive. Patient refusing to leave oxygen on and O2 dropping into the low 80s to upper 70s. PRN Ativan administered in an attempt to calm patient and get her to wear oxygen.
--- NOTE | 2025-10-07 21:11 | P.PN_ITS ---
Subjective 2 Subjective: the patient was seen in the morning, currenlty more awake than yesterday labs improving. on and off gets altered but able to protect her airways able to interact and engage for sometime cont icu monitoring Vitals/I&O/Wt Last Vital Signs Temp 98.1 F 10/07/25 20:15 Pulse 128 H 10/07/25 20:15 Resp 16 10/07/25 20:15 BP 163/79 10/07/25 20:15 Pulse Ox 82 L 10/07/25 20:15 O2 Del Method Room Air 10/07/25 20:15 O2 Flow Rate 6 10/07/25 20:00 FiO2 60 10/07/25 04:00 10/07/25 10/07/25 10/07/25 06:59 14:59 22:59 Intake Total 750 / 750 365 / 1115 Output Total 1500 / 5000 550 / 550 2050 / 2600 Balance -1500 / -3090 200 / 200 -1685 / -1485 Weight last 48 hrs Weight 102 kg Weight 106 kg Physical Exam 2 Narrative: General: Disoriented lady, however able to respond to voice, looks at you and answers, Easily arousable and able to protect her airways HEENT: Gross normal exam Cardio: Sinus tachycardia,, normal S1-S2 without any murmurs, limited exam because the patient is uncooperative Respiratory: Coarse crackles diffusely heard which could be due to fluid overload and also secretions, and also conducting sounds but no wheezes or crepitations GI: Abdomen soft, mild tender on deep palpation, no guarding and normal bowel sounds Neuro: Disoriented however no gross focal neurological defect appreciated Behavior: Uncooperative Extremities: Unequal and feeble pulses however palpable and peripheries are well-perfused, bilateral foot stumps appreciated without any concerns of the skin, mild trace edema bilaterally in the lower extremities Shiny skin and features of peripheral artery disease are evident. Patient has bilateral foot stumps, no concerns Urinary Catheter Management: 2-way Urethral: Cath Placed During This Visit: yes Reason for Continuing Indwelling Catheter: Accurate Measurement of Urinary Output in Critically Ill Patients Urinary Catheter Date of Insertion: 10/04/25 Urinary Catheter Time of Insertion: 06:38 Data 10/07/25 03:26 10/07/25 03:26 Micro: Microbiology 10/06/25 10:22 Blood Culture - Preliminary Blood NEGATIVE TO DATE 10/06/25 03:07 Blood Culture - Preliminary Blood NEGATIVE TO DATE A&P Assessment and plan 1. Severe sepsis: Severe sepsis leading to acute encephalopathy 2 sets of blood cultures negative prelim, urine cultures,CXR reviewed possible aspiration? Lactate series showed improvement Maintain 2 IV bore cannulas Sinus tachycardia, to follow the EKG cont abx with ceftriaxone at the moment for urine culture, blood cultures negative so far Patient not improving in the next 24 hours consider escalation of antibiotics mrsa swab and cont vanc, if negative then dc vanc steroids likely reason for high WBCs, no indication to cont high dose, cont 60mg iv methylpred liver enzymes improving Adequate perfusion and capillary refill present Adequate urine output present Intake and output monitoring Maintain MAP above 65 2. Altered mental status: High likelihood of obtunded/metabolic encephalopathy secondary to sedatives/analgesics with high-dose morphine and gabapentin which patient was taking at home and was resumed on the request of patient. Blood cultures so far negative, continue ceftriaxone based on urine cultures, reduced dose of steroids since it can also lead to acute encephalopathy secondary to steroids CT head unremarkable for acute stroke. Continue Vanco and follow MRSA Hold analgesic sedatives at the moment Fall precautions and reorientation Intake and output monitoring Neurochecks frequently Daily labs and monitoring with correction of electrolytes 3. Acute hypoxemic respiratory failure: Patient overnight got up started high likelihood secondary to high-dose analgesics which she was taking at home, chest x-ray showed bilateral infiltrates which are more likely suggestive of pneumonia which could be aspirations since she was obtunded? However the read by radiology showed it has congestive features CRP is high suggestive of infectious pathology? Oxygen therapy as per protocol to maintain the oxygenation above 90 to 92% Lasix 40 mg IV as needed for shortness of breath Continue ceftriaxone and vancomycin Follow sepsis workup, follow MRSA, if MRSA negative then discontinue vancomycin If no improvement in the next 24 hours, escalation of antibiotics. Hold fluids at the moment Monitor hemodynamics and keep the MAP above 65 Respiratory viral panel negative 4. Chronic mesenteric ischemia: Lactate improved Continue aspirin and Plavix Lactic acidosis improving, pH is better 5. Urinary retention: Bladder was distended on CT scan. Continue ceftriaxone as per sensitivity pattern. Continue to monitor intake and output 6. 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 Butt for diabetic disease. The feet stumps look healthy currently without ulceration Continue anticoagulation as per her home medication, with ticagrelor and cilostazol Having mild tachycardia started on beta-nany metoprolol 12.5 mg twice daily 7. Type 2 diabetes mellitus with diabetic polyneuropathy, unspecified whether vermin exterminator insulin use: Continue gabapentin for neuropathy. Continue Lantus 50 units twice a day and start sliding scale insulin 8. CAD (coronary artery disease): Recent stent to RCA in-stent restenosis on 09/05/2025 Continue on beta-nany 12.5 mg twice daily 9. Moderate aortic stenosis: Stable 10. Leukocytosis, unspecified type: Possible stress related secondary to chronic mesenteric ischemia and also patient had high-dose steroids Continue ceftriaxone for UTI and vancomycin Respiratory viral panel negative, blood cultures prelim negative 11. Lactic acidosis: Currently improved after diuresis and antibiotics for the manage of severe sepsis 12. Sleep apnea-like behavior: Recommend workup for sleep apnea outpatient but with obtundation her CO2 was not high this evening PDMP PDMP Reviewed: Not Reviewed Attestations 2 Medical Necessity Statement*: Patient will stay more than 2 midnights due to acute metabolic encephalopathy and possible sepsis requiring monitoring Time Spent in Patient Care: Greater than 35 minutes (>than 50% of time spent in counselling and/or direct pt care on unit) . Critical Care Time: The high probability of a clinically significant, sudden or life threatening deterioration, as referenced in this documentation, required my full and direct attention, intervention and personal management. The critical care time shown is in addition to time spent performing any reported separately billable procedures and includes the following: [x] Data and vital sign review and interpretation [x ] Patient assessment, examination and intervention [x] Medication orders and management [x] Patient/Family updates as able [x] Care Coordination and Documentation. Critical Care Time (min): 40 Other Attestations: Patient condition has been discussed at length with the patient/family, I have independently reviewed the chart labs imaging/diagnostics/EKG. the goals of care and code status with the patient/family/NOK/legal shipping services sales representative, and documented accordingly. I have reconciled the medications after confirmation/comorbidities/current clinical condition. The management has been done according to the current clinical condition with respect to patient goals of care and based on recommendations/guidelines. The patient/family has been informed about the current condition and further plan of care. Agreed with the plan of care and understood without any language barrier. Every effort was made to ensure accuracy of superintendent general. Any obvious errors or omissions should be clarified with the author of the document. Coding Level of Care Code Critical Care >/= 30 minutes Diagnoses Severe sepsis A41.9; R65.20 Altered mental status R41.82 Acute hypoxemic respiratory failure J96.01 Chronic mesenteric ischemia K55.1 Urinary retention R33.9 PAD (peripheral artery disease) I73.9 Type 2 diabetes mellitus with diabetic polyneuropathy, unspecified whether vermin exterminator insulin use E11.42 Diabetes mellitus vermin exterminator insulin use: unspecified jail insulin use status CAD (coronary artery disease) I25.110 Associated angina: with unstable angina Coronary Disease-Associated Artery/Lesion type: unspecified vessel or lesion type [place] vs. transplanted heart: [place] heart Moderate aortic stenosis I35.0 Leukocytosis, unspecified type D72.829 Leukocytosis type: unspecified Lactic acidosis E87.20 Sleep apnea-like behavior G47.39
[2025-10-07 23:32] LABS: MRSA PCR OZH (swab) MRSA Detected (Not Detecte)
--- NOTE | 2025-10-07 23:49 | ECG_ITS ---
[employer] Test Date: 2025-10-07 Pat Name: Mayra Ascencio Department: Room: [facility] Gender: Female Internal Communications Writer: : 1965 Requested By: Christina Soriano Order Number: [id number] Reading MD: CRISTHIAN TEJEDA Measurements Intervals [place] Rate: 113 P: 118 HI: 188 QRS: 41 QRSD: 96 T: 61 QT: 291 QTc: 400 Interpretive Statements SINUS TACHYCARDIA NONSPECIFIC ST & T-WAVE ABNORMALITY ABNORMAL RHYTHM ECG Compared to ECG 10/04/2025 02:37:18 T-wave abnormality now present Left ventricular hypertrophy no longer present ST (T wave) deviation no longer present Myocardial infarct finding no longer present Electronically Signed On 10-08-2025 11:54:27 DEEP SEA DIVER by CRISTHIAN TEJEDA [email or web address]
[2025-10-08] VITALS (50 sets, daily range): BP systolic 92–196; BP diastolic 51–103; PULSE 90–120; RESP 9–27; TEMP 36.6–36.9; O2SAT 88–100
--- NOTE | 2025-10-08 00:13 | PC.NURSE ---
Addendum entered by ROSANGELA Iglesias 10/08/25 04:09: Patient still attempting to pull at bipap, even while in soft restraints. Patients linens changed, cleaned up and repositioned in an attempt to increase comfort and decrease agitation. Original Note: Notified that patient was becoming agitated, physically aggressive, removing bipap and medical monitoring equipment, which was causing her respiratory distress. Provider gave orders for bilateral soft wrist restraints. Order placed. Flowsheet populated in worklist.
[2025-10-08 01:38] LABS: Ferritin 874 ng/mL (15-150); Iron 61 ug/dL (37-145); Thyroid Stimulating Hormone 1.83 uIU/mL (0.27-4.20); Total Iron Binding Capacity 345 mcg/dl; Unsaturated Iron Binding 284 ug/dL (112-347); Vitamin B12 729 pg/mL (232-1245)
[2025-10-08] MEDS: insulin glargine 100 units/1 mL 50 UNIT SUBCUT ×2 (04:45→17:11)
--- NOTE | 2025-10-08 05:24 | PC.NURSE ---
Addendum entered by ROSANGELA Iglesias 10/08/25 06:42: Patient awake and alert to self. Removed soft restraints and swabbed patients mouth with mouth swab and attempted to give a bite of applesauce. Patient tolerated well. Original Note: PO meds held again this AM due to patient being unable to swallow safely. Held until patient can possibly wake up more, be more cooperative, and is able to safely swallow.
[2025-10-08 05:30] LABS: Hematocrit 26.8 % (36-47); Hemoglobin 7.40 g/dL (11.27-16.99); Mean Corpuscular HGB Conc 27.6 g/dL (30-55); Mean Corpuscular Hemoglobin 17.7 pg (27-33); Mean Corpuscular Volume 64.3 fl (85-98); Nucleated Red Blood Cells % 0.5 %; Platelet Count 496 10^3/cmm (157-399); Red Blood Count 4.17 10^6/uL (3.85-5.65); White Blood Count 21.96 10^3/uL (3.29-11.43)
[2025-10-08 05:49] LABS: Alanine Aminotransferase 118 U/L (0-33); Albumin Level 3.5 g/dL (3.5-5.2); Alkaline Phosphatase 92 U/L (35-105); Anion Gap 18.0 (5-19); Aspartate Amino Transferase 110 U/L (0-32); Blood Urea Nitrogen 32 mg/dL (6-20); Calcium 8.8 mg/dL (8.5-10.5); Carbon Dioxide 25 mmol/L (22-29); Chloride 107 mmol/L (98-107); Globulin 3.3 g/dL (1.3-4.6); Glucose 180 mg/dL (65-115); Magnesium 2.2 mg/dL (1.7-2.3); Osmolality Calculated 315 mOsm/kg (285-295); Potassium 3.0 mmol/L (3.5-5.1); Sodium 147 mmol/L (136-145); Total Protein 6.8 g/dL (6.6-8.7)
[2025-10-08] MEDS: ferric gluconate 125 MG in sodium chloride 0.9% (100 ml) 100 ML 110 MG IV (08:01)
[2025-10-08] MEDS: MEROPENEM 2,000 MG in sodium chloride 0.9% (plus) 50 ML 100 MG IV ×2 (09:04→17:16)
[2025-10-08] MEDS: potassium phosphate (mEq K) 40 MEQ in sodium chloride 0.9% (100 ml) 100 ML 27.25 MEQ IV (09:38)
[2025-10-08] MEDS: ondansetron 2 mg/ML SDV 2 mL 4 MG IVP (10:35)
[2025-10-08] MEDS: lactulose oral liq 20 gm/30 mL UDC 10 GM PO ×3 (10:42→21:01)
[2025-10-08] MEDS: levofloxacin-dextrose 5 % 750 MG/150 ML PREMIX 100 MG IV (15:33)
--- NOTE | 2025-10-08 20:31 | PM.PN ---
Subjective Subjective: Patient was seen in the morning, currently she is getting better and awake, able to protect her airways Still sometimes not coherent. Able to communicate and interact High WBCs Due to patient high risk of deterioration and altered mentation, continue ICU monitoring Vitals/I&O/Wt Last Vital Signs Temp 98.2 F 10/08/25 20:00 Pulse 105 H 10/08/25 20:00 Resp 23 H 10/08/25 20:00 BP 180/98 10/08/25 20:00 Pulse Ox 95 10/08/25 20:00 O2 Del Method High Flow Nasal Cannula 10/08/25 16:00 O2 Flow Rate 8 10/08/25 16:00 FiO2 60 10/08/25 02:52 10/08/25 10/08/25 10/08/25 06:59 14:59 22:59 Intake Total 250 / 2247.5 1626.117 / 1626.117 850 / 2476.117 Output Total 75 / 3525 850 / 850 Balance 175 / -1277.5 1626.117 / 1626.117 0 / 1626.117 Weight last 48 hrs Weight 97 kg Weight 102 kg Physical Exam Narrative: General: Disoriented lady, however able to respond to voice, better than yesterday, able to respond to questions and answers however still not coherent, HEENT: Gross normal exam Cardio: Sinus tachycardia,, normal S1-S2 without any murmurs, limited exam because the patient is uncooperative Respiratory: Bilateral equal air entry with mild wheezes and coarse crackles secretions however better than yesterday. GI: Abdomen soft, mild tender on deep palpation, no guarding and normal bowel sounds Neuro: Disoriented however no gross focal neurological defect appreciated Behavior: Uncooperative Extremities: Unequal and feeble pulses however palpable and peripheries are well-perfused, bilateral foot stumps appreciated without any concerns of the skin, mild trace edema bilaterally in the lower extremities Shiny skin and features of peripheral artery disease are evident. Patient has bilateral foot stumps, no concerns Urinary Catheter Management: 2-way Urethral: Cath Placed During This Visit: yes Reason for Continuing Indwelling Catheter: Accurate Measurement of Urinary Output in Critically Ill Patients Urinary Catheter Date of Insertion: 10/04/25 Urinary Catheter Time of Insertion: 06:38 Data 10/08/25 05:14 10/08/25 05:14 A&P Assessment and plan 1. Severe sepsis: Severe sepsis leading to acute encephalopathy 2 sets of blood culture prelim negative, urine culture showed ESBL Antibiotics escalated to meropenem MRSA positive, continue vancomycin as per pharmacy protocol Lactate series showed improvement Maintain 2 IV bore cannulas Hold steroids since the patient blood pressure is stable and is on the higher side. Intake and output monitoring Maintain MAP above 65 2. Disorientation: High likelihood of obtunded/metabolic encephalopathy secondary to sedatives/analgesics with high-dose morphine and gabapentin which patient was taking at home and was resumed on the request of patient on 10/06/2025 CT head unremarkable for acute stroke. MRSA positive continue vancomycin possible sepsis since the patient has high leukocytosis Urine culture showed ESBL, continue meropenem Hold analgesic sedatives at the moment Fall precautions and reorientation Intake and output monitoring Neurochecks frequently 3. Acute hypoxemic respiratory failure: Possible aspiration secondary to acute metabolic encephalopathy secondary to analgesics/sedatives which the patient was taking at home and reconciled as inpatient upon request. CRP is high suggestive of infectious pathology? Oxygen therapy as per protocol to maintain the oxygenation above 90 to 92% Lasix 40 mg IV as needed for shortness of breath DuoNebs and oxygen therapy as per protocol Management of sepsis as mentioned above Respiratory viral panel negative 4. Chronic mesenteric ischemia: Continue aspirin and Plavix 5. Urinary retention: Urine culture showed ESBL Continue meropenem based on sensitivity 6. 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 Butt for diabetic disease. The feet stumps look healthy currently without ulceration Continue anticoagulatin ticagrelor and cilostazol Having mild tachycardia started on beta-nany metoprolol 12.5 mg twice daily 7. Type 2 diabetes mellitus with diabetic polyneuropathy, unspecified whether correction insulin use: Continue gabapentin for neuropathy. Continue Lantus 50 units twice a day and start sliding scale insulin 8. CAD (coronary artery disease): Recent stent to RCA in-stent restenosis on 09/05/2025 Continue on beta-nany 12.5 mg twice daily 9. Moderate aortic stenosis: Stable 10. Sleep apnea-like behavior: Recommend workup for sleep apnea outpatient and fruit worker follow-up 11. Hypertension: Uncontrolled hypertension, could be element of steroids Hold steroids since there is no indication Losartan 25 mg stat and added amlodipine 5 mg from tomorrow Monitor blood pressure If the systolic is less than 100 or in the normal range, hold antihypertensives PDMP PDMP Reviewed: Not Reviewed Attestations Medical Necessity Statement*: Patient will stay more than 2 midnights in ICU for monitoring since the patient is having acute metabolic encephalopathy severe sepsis that required ICU monitoring Time Spent in Patient Care: Greater than 35 minutes (>than 50% of time spent in counselling and/or direct pt care on unit). Critical Care Time: The high probability of a clinically significant, sudden or life threatening deterioration, as referenced in this documentation, required my full and direct attention, intervention and personal management. The critical care time shown is in addition to time spent performing any reported separately billable procedures and includes the following: [x] Data and vital sign review and interpretation [x] Patient assessment, examination and intervention [x] Medication orders and management [x] Patient/Family updates as able [x] Care Coordination and Documentation. Critical Care Time (min): 36 Other Attestations: Patient condition has been discussed at length with the patient/family, I have independently reviewed the chart labs imaging/diagnostics/EKG. the goals of care and code status with the patient/family/NOK/legal guest experience representative, and documented accordingly. I have reconciled the medications after confirmation/comorbidities/current clinical condition. The management has been done according to the current clinical condition with respect to patient goals of care and based on recommendations/guidelines. The patient/family has been informed about the current condition and further plan of care. Agreed with the plan of care and understood without any language barrier. Every effort was made to ensure accuracy of head teller. Any obvious errors or omissions should be clarified with the author of the document. Coding Level of Care Code Critical Care >/= 30 minutes Diagnoses Severe sepsis A41.9; R65.20 Disorientation R41.0 Altered mental status type: disorientation Acute hypoxemic respiratory failure J96.01 Chronic mesenteric ischemia K55.1 Urinary retention R33.9 PAD (peripheral artery disease) I73.9 Type 2 diabetes mellitus with diabetic polyneuropathy, unspecified whether exterminator helper termite insulin use E11.42 Diabetes mellitus exterminator helper termite insulin use: unspecified exterminator helper termite insulin use status CAD (coronary artery disease) I25.110 Associated angina: with unstable angina Coronary Disease-Associated Artery/Lesion type: unspecified vessel or lesion type [place] vs. transplanted heart: [place] heart Moderate aortic stenosis I35.0 Sleep apnea-like behavior G47.39 Hypertension I10
[2025-10-08] MEDS: LOSARTAN 25 MG TABLET PO (21:01)
--- NOTE | 2025-10-08 21:54 | PC.NURSE ---
on unit to see patients. Patient complained of pain and he gave verbal orders for PRN IVP 2-4mg Morphine q4h. Order placed. See MAR
[2025-10-08] MEDS: morphine 4 mg/mL SDV 1 mL IVP (22:06)
[2025-10-09] VITALS (34 sets, daily range): BP systolic 90–141; BP diastolic 52–84; PULSE 85–101; RESP 0–23; TEMP 36.1–37.1; O2SAT 90–100; BMI 36.9
[2025-10-09] MEDS: MEROPENEM 2,000 MG in sodium chloride 0.9% (plus) 50 ML 100 MG IV ×3 (01:02→17:17)
--- NOTE | 2025-10-09 01:38 | ECG_ITS ---
[facility] Date: 2025-10-09 Pat Name: Mayra Ascencio Department: Room: [facility] Gender: Female Manager Program: : 1965 Requested By: Christina Soriano Order Number: [id number] Reading MD: CRISTHIAN TEJEDA Measurements Intervals [place] Rate: 101 P: 72 MN: 183 QRS: 56 QRSD: 98 T: 71 QT: 307 QTc: 398 Interpretive Statements SINUS TACHYCARDIA NONSPECIFIC ST & T-WAVE ABNORMALITY ABNORMAL RHYTHM ECG Compared to ECG 10/07/2025 23:49:18 No significant changes Electronically Signed On 10-09-2025 20:16:23 BEEF SPLITTER by CRISTHIAN TEJEDA [email or web address]
--- NOTE | 2025-10-09 01:59 | PC.NURSE ---
Patient became very agitated that she wanted bipap removed. Attempts to redirect patient, she then grew increasingly agitated. Shortly after she began to complain of chest pain, saying she needed the bipap off. Attempted to reposition patient for comfort. Patients agitation once again increased, hitting herself, swearing at staff, then became physically aggressive to staff at that point, attempting to rip bipap from her face, as well as strike staff. Per protocol an EKG order was placed and obtained. notified of situation and interventions. Patients O2 dropped into the low 80s during the very short time she was able to remove bipap from her face. Patient calmed, placed back on bipap and now resting in bed. No further complaints of chest pain.
[2025-10-09] MEDS: insulin glargine 100 units/1 mL 50 UNIT SUBCUT (04:29)
[2025-10-09 04:46] LABS: Hematocrit 26.7 % (36-47); Hemoglobin 7.70 g/dL (11.27-16.99); Mean Corpuscular HGB Conc 28.8 g/dL (30-55); Mean Corpuscular Hemoglobin 18.4 pg (27-33); Mean Corpuscular Volume 63.9 fl (85-98); Nucleated Red Blood Cells % 1.7 %; Platelet Count 366 10^3/cmm (157-399); Red Blood Count 4.18 10^6/uL (3.85-5.65); White Blood Count 19.22 10^3/uL (3.29-11.43)
--- NOTE | 2025-10-09 05:03 | PC.NURSE ---
Patient currently lethargic after episode of severe agitation earlier in the shift. Not administering PO meds at this time. Left for later when patient is more awake and alert
[2025-10-09 05:16] LABS: Alanine Aminotransferase 85 U/L (0-33); Albumin Level 3.0 g/dL (3.5-5.2); Alkaline Phosphatase 89 U/L (35-105); Aspartate Amino Transferase 62 U/L (0-32); Blood Urea Nitrogen 18 mg/dL (6-20); Calcium 8.6 mg/dL (8.5-10.5); Carbon Dioxide 29 mmol/L (22-29); Chloride 106 mmol/L (98-107); Globulin 2.5 g/dL (1.3-4.6); Glucose 60 mg/dL (65-115); Osmolality Calculated 298 mOsm/kg (285-295); Sodium 144 mmol/L (136-145); Total Protein 5.5 g/dL (6.6-8.7)
[2025-10-09 05:17] LABS: Anion Gap 12.6 (5-19); Potassium 3.6 mmol/L (3.5-5.1)
--- NOTE | 2025-10-09 05:33 | PC.NURSE ---
Patients glucose in AM labs value of 60, performed a fingerstick, BG 78. Gave patient apple juice.
[2025-10-09] MEDS: oxybutynin chloride XL 5 MG TABLET 20 MG PO (09:00)
--- NOTE | 2025-10-09 09:00 | PC.NURSE ---
Morning medications: Pt awake and alert at this time. She is willing to take her am medcations. Administered her am medications at this time.
[2025-10-09] MEDS: LOSARTAN 25 MG TABLET PO (09:01)
--- NOTE | 2025-10-09 11:08 | PC.SOCIAL ---
IMM Update pg 2 of IMM Updated and reviewed w/ patients son. Copy provided and copy dated, initialed and placed in chart.
[2025-10-09] MEDS: lactulose oral liq 20 gm/30 mL UDC 10 GM PO ×2 (12:47→17:18)
--- NOTE | 2025-10-09 14:26 | PC.NURSE ---
Report given to IRAM Huntley. Report included but not limited to: ESBL in urine and MRSA in nares, Pt alert and more oriented, Pt asked for pain medication for her back < I admin Acetaminophen , I just stated here is your pain meds and she took them and it helped.
--- NOTE | 2025-10-09 14:40 | PC.NURSE ---
Pt transferred to Room 250-1. All belongings with pt.
--- NOTE | 2025-10-09 14:41 | P.PN_ITS ---
Subjective 2 Subjective: patient was seen in the morning and currently doing well. He used to request her morphine high dose 60 mg twice daily however she is stable with other alternatives analgesics. Mentation getting better overall. Patient can be transferred to the [facility] floor Vitals/I&O/Wt Last Vital Signs Temp 97 F L 10/09/25 13:00 Pulse 98 10/09/25 14:05 Resp 17 10/09/25 14:00 BP 131/84 10/09/25 14:00 Pulse Ox 93 10/09/25 14:00 O2 Del Method Room Air 10/09/25 14:00 O2 Flow Rate 3 10/09/25 13:17 FiO2 60 10/09/25 03:00 10/08/25 10/09/25 10/09/25 22:59 06:59 14:59 Intake Total 1100 / 2726.117 170 / 2896.117 1150 / 1150 Output Total 1150 / 1150 350 / 1500 Balance -50 / 1576.117 -180 / 7257.931 3294 / 1150 Weight last 48 hrs Weight 100.743 kg Weight 101 kg Weight 97 kg Physical Exam 2 Narrative: General: Oriented to place and person, awake and alert, able to interact and is coherent better than yesterday HEENT: Gross normal exam Cardio: Normal rate rhythm normal S1-S2 without any murmurs, normal JVD Respiratory: Bilateral equal air entry with mild wheezes and coarse crackles secretions however better than yesterday. GI: Abdomen soft, mild tender on deep palpation, no guarding and normal bowel sounds Neuro alert and oriented to place and person, grossly unremarkable neurological exam Extremities: Unequal and feeble pulses however palpable and peripheries are well-perfused, bilateral foot stumps appreciated without any concerns of the skin, mild trace edema bilaterally in the lower extremities Shiny skin and features of peripheral artery disease are evident. Patient has bilateral foot stumps, no concerns Urinary Catheter Management: 2-way Urethral: Cath Placed During This Visit: yes Reason for Continuing Indwelling Catheter: Accurate Measurement of Urinary Output in Critically Ill Patients Urinary Catheter Date of Insertion: 10/04/25 Urinary Catheter Time of Insertion: 06:38 Data 10/09/25 03:46 10/09/25 03:46 A&P Assessment and plan 1. Severe sepsis: Severe sepsis leading to acute encephalopathy 2 sets of blood culture prelim negative, urine culture showed ESBL Antibiotics escalated to meropenem and ID consulted MRSA positive, continue vancomycin as per pharmacy protocol Lactate series showed improvement Maintain 2 IV bore cannulas. Intake and output monitoring Maintain MAP above 65 2. Disorientation: High likelihood of obtunded/metabolic encephalopathy secondary to sedatives/analgesics with high-dose morphine and gabapentin which patient was taking at home and was resumed on the request of patient on 10/06/2025 CT head unremarkable for acute stroke. MRSA positive continue vancomycin possible sepsis since the patient has high leukocytosis Urine culture showed ESBL, continue meropenem Hold analgesic sedatives at the moment Fall precautions and reorientation Intake and output monitoring Neurochecks frequently 3. Acute hypoxemic respiratory failure: Possible aspiration secondary to acute metabolic encephalopathy secondary to analgesics/sedatives which the patient was taking at home and reconciled as inpatient upon request.. CRP is high suggestive of infectious pathology? Oxygen therapy as per protocol to maintain the oxygenation above 90 to 92% Lasix 40 mg IV as needed for shortness of breath DuoNebs and oxygen therapy as per protocol Management of sepsis as mentioned above Respiratory viral panel negative 4. Chronic mesenteric ischemia: Continue aspirin and Plavix 5. Urinary retention: Urine culture showed ESBL Continue meropenem based on sensitivity ID media consultant to follow the recommendation 6. 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 Butt for diabetic disease. The feet stumps look healthy currently without ulceration Continue anticoagulatin ticagrelor and cilostazol Continue beta-blockers 7. Type 2 diabetes mellitus with diabetic polyneuropathy, unspecified whether supervisor intermediates insulin use: Continue gabapentin for neuropathy. Continue Lantus 50 units twice a day and start sliding scale insulin Hypoglycemia protocol 8. CAD (coronary artery disease): Recent stent to RCA in-stent restenosis on 09/05/2025 Continue on beta-nany 12.5 mg twice daily 9. Moderate aortic stenosis: Stable 10. Sleep apnea-like behavior: Recommend workup for sleep apnea outpatient and health tech follow-up 11. Hypertension: Hold losartan and continue amlodipine 5 mg. Monitor blood pressure If the systolic is less than 100 or in the normal range, hold antihypertensives Plan: plasterer apprentice on board for further safe disposition of the patient after discussing with the son since patient cannot be independent, has bilateral foot stumps that further limits her mobility and also with multiple comorbidities and requires assistance in her daily life for medical optimization as well and to avoid recurrent hospital admissions PDMP PDMP Reviewed: Not Reviewed Attestations 2 Medical Necessity Statement*: Patient will stay over midnight for further management of sepsis leading to acute metabolic encephalopathy requiring ICU monitoring, currently being transferred to wards, pending ID consultation for further ESBL E. coli in the urine management Time Spent in Patient Care: 16 - 35 minutes (>than 50% of time sp ent in counselling and/or direct pt care on unit) . Other Attestations: Patient condition has been discussed at length with the patient/family, I have independently reviewed the chart labs imaging/diagnostics/EKG. the goals of care and code status with the patient/family/NOK/legal technical sales representatives, and documented accordingly. I have reconciled the medications after confirmation/comorbidities/current clinical condition. The management has been done according to the current clinical condition with respect to patient goals of care and based on recommendations/guidelines. The patient/family has been informed about the current condition and further plan of care. Agreed with the plan of care and understood without any language barrier. Every effort was made to ensure accuracy of inseam trimmer. Any obvious errors or omissions should be clarified with the author of the document. Coding Level of Care Code 46880 Diagnoses Severe sepsis A41.9; R65.20 Disorientation R41.0 Altered mental status type: disorientation Acute hypoxemic respiratory failure J96.01 Chronic mesenteric ischemia K55.1 Urinary retention R33.9 PAD (peripheral artery disease) I73.9 Type 2 diabetes mellitus with diabetic polyneuropathy, unspecified whether supervisor intermediates insulin use E11.42 Diabetes mellitus supervisor intermediates insulin use: unspecified correction insulin use status CAD (coronary artery disease) I25.110 Associated angina: with unstable angina Coronary Disease-Associated Artery/Lesion type: unspecified vessel or lesion type [place] vs. transplanted heart: [place] heart Moderate aortic stenosis I35.0 Sleep apnea-like behavior G47.39 Hypertension I10
--- NOTE | 2025-10-09 18:01 | PC.NURSE ---
patient son gloria called policy writer spoke to him. Gloria wanted only himself and Mayuri to have information. policy writer informed gloria that is the patients decision but that policy writer would talk to patient and see what she wanted to do. [employer] immediatly left the desk and took a PHI form to the patient. Gloria was on patients personal cell phone yelling at her to only allow himself and mayuri to get information. [employer] St[employer]izer informed patient that it is her decision. Gloria started yelling that he is DPOA for patient. [employer] St[employer]izer informed gloria that I don't see the DPOA paperwork and that patient is alert and oriented to make her own decisions. Patient started yelling that Gloria is in fact DPOA. [employer] Stabilizer left the room and informed the patient care nurse.
--- NOTE | 2025-10-09 18:30 | PM.CONSULT ---
Providers/Reason For Consult Consulting Physician/Specialty*: Elke Gresham MD/Infectious Disease Reason for Consult*: persistent leukocytosis, ESBL infection Requesting Physician: Christina Soriano MD Attending Physician: Christina Soriano MD Primary Care Provider: Keila Crespo MD History of Present Illness History of Present Illness Mayra Ascencio is a 60 year old female with past medical history of COPD, CAD, rheumatoid arthritis, diabetes, seizures, UTI, diabetic foot ulcer h/o PJI of the knee, h/o osteomyelitis involving multiple digits of her foot resulting in amputations, h/o recurrent MRSA infections including cellulitis,PJI and osteomyelitis previously maintained on Bactrim suppression until 2023, but this appears to have fallen off her MAR most recently. She is currently admitted to the hospital since 10/04/25 after presenting with chest pain and abdominal pain. 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 She started to improve with hydration. Started Rocephin due to concern for UTI. On 10/06 she developed altered mental status, thought related to resuming home opiates and gabapentin. There was partial response to narcan and CXR showed B/L infiltrates concerning for pneumonia, atypical vs aspiration. Ammonia level was 80. She needed to transfer to ICU on Bipap Review of Systems General: Reports: 10 or more systems reviewed and unremarkable except in HPI and below Const: Denies: fever(s), chills or body aches Eyes: Denies: change in vision, blurry vision or photophobia ENMT: Reports: hoarseness; Denies: throat pain, enlarged tonsils, odynophagia or nasal congestion Card: Denies: chest pain, palpitations, irregular heart rhythm, edema, swelling of feet/ankles, lightheadedness, pre-syncope, dyspnea on exertion or orthopnea Resp: Denies: dyspnea, productive cough, non-productive cough, wheezing, stridor, pain on inspiration, change in phlegm color, hemoptysis or chest congestion GI: Denies: abdominal pain, nausea, vomiting, hematemesis, coffee ground emesis, dysphagia, heartburn, diarrhea, constipation, GI cramping, change in stool character, hematochezia or melena : Denies: flank pain, difficulty voiding, dysuria, urinary frequency, urinary urgency, urinary hesitancy or hematuria Musc: Denies: neck pain, back pain, extremity pain, joint swelling, joint warmth or deformity Neuro: Denies: headache(s), numbness in extremities, weakness in extremities, sensory changes, difficulty walking, frequent falls, dizziness, vertigo, behavioral changes, Slurred speech present or seizure-like activity Psych: Denies: anxiety, depression, suicidal ideation or homicidal ideation Endo: Denies: polyuria, polydipsia, tired all the time, cold intolerance or hot flashes Xavier/Lymph: Denies: easy bruising or easy bleeding Medications/Allergies Home Medications ?Medication ?Instructions ?Recorded ?Confirmed ?Last Taken ?Type blood sugar diagnostic (Blood #50 ea 08/10/23 10/04/25 Unknown Rx Glucose Test strips) lancets #100 ea 11/28/23 10/04/25 Unknown Rx albuterol sulfate 90 mcg/actuation 2 puff inhalation Q6H PRN 01/10/24 10/04/25 11/14/24 18:00 Rx aerosol inhaler shortness of breath or wheezing #8.5 grams blood sugar diagnostic (Blood #100 ea 01/10/24 10/04/25 Unknown Rx Glucose Test strips) blood-glucose meter #1 ea 01/10/24 10/04/25 Unknown Rx aspirin 81 mg tablet,delayed 81 mg PO QAM #30 tabs 03/20/24 10/04/25 03/28/25 Rx release epinephrine 0.3 mg/0.3 mL 0.3 mg (0.3 mL) IM Q4H PRN 04/16/24 10/04/25 07/23/24 Rx injection, auto-injector (EpiPen anaphylaxis #2 ea 2-Pankaj) pen needle, diabetic 31 gauge x #100 ea 04/16/24 10/04/25 Unknown Rx 5/16 (Comfort EZ Pen Melvin) pen needle, diabetic 32 gauge x #100 ea 04/16/24 10/04/25 Unknown Rx 5/32 (Comfort EZ Pen Melvin) quetiapine 200 mg tablet 200 mg PO BEDTIME #30 tabs 04/16/24 10/04/25 03/28/25 Rx Wheel chair #1 ea 07/19/24 10/04/25 Unknown Rx metformin 500 mg tablet 500 mg PO BID 10/08/24 12/19/25 06/12/25 History Diabetic shoes with 3 sets of #1 ea 08/09/24 10/04/25 Unknown Rx insoles and toe filler to right furosemide 40 mg tablet 40 mg PO DAILY PRN Edema 10/25/24 10/04/25 10/26/24 History gabapentin 300 mg capsule 300 mg PO TID 10/25/24 10/04/25 03/28/25 History insulin glargine 100 unit/mL (3 50 unit SUBCUT BID 10/25/24 10/04/25 03/28/25 History mL) subcutaneous pen (Lantus Solostar U-100 Insulin) oxybutynin chloride 10 mg 20 mg PO DAILY 10/25/24 10/04/25 03/28/25 History tablet,extended release 24 hr ticagrelor 90 mg tablet (Brilinta) 90 mg PO BID #180 tabs 03/06/25 10/04/25 03/28/25 Rx cilostazol 100 mg tablet 100 mg PO BID 03/29/25 10/04/25 03/28/25 History pantoprazole 40 mg tablet,delayed 40 mg PO QAM PRN Acid Reflux 03/29/25 10/04/25 Unknown History release nitroglycerin 0.4 mg sublingual 0.4 mg sublingual Q5M PRN Chest 04/15/25 10/04/25 Unknown Rx tablet (Nitrostat) Pain #30 tabs ezetimibe 10 mg tablet See Rx Instructions .Route 05/03/25 10/04/25 Unknown Rx .COMPLEX #90 tabs losartan 50 mg tablet See Rx Instructions .Route 05/03/25 10/04/25 Unknown Rx .COMPLEX #90 tabs dulaglutide 1.5 mg/0.5 mL 1.5 mg SUBCUT Q7D 10/04/25 10/04/25 Unknown History subcutaneous pen injector (Trulicity) morphine 15 mg immediate release 15 mg PO Q8H PRN Pain 10/04/25 10/04/25 Unknown History tablet pregabalin 300 mg capsule 300 mg PO BID 10/04/25 10/04/25 Unknown History Allergies Allergy/AdvReac Type Severity Reaction Status Date / Time doxycycline Allergy Mild ADR-Photose Verified 05/14/25 08:32 nsitivity fentanyl Allergy Unknown ALGY-Difficulty Verified 05/14/25 08:32 Breathing adhesive Allergy Unknown Verified 05/14/25 08:32 buprenorphine (From Suboxone) Allergy Unknown Verified 09/02/25 15:47 codeine Allergy Unknown Verified 05/14/25 08:32 hydrocodone Allergy ADR-Itching Verified 05/14/25 08:32 latex Allergy ALGY-Swell Verified 05/14/25 08:32 Lip/Tongue/Throat naloxone (From Suboxone) Allergy Unknown Verified 09/02/25 15:47 naproxen (From Naprosyn) Allergy Unknown Verified 05/14/25 08:32 nut - unspecified Allergy ALGY-Anaphy Verified 05/14/25 08:32 laxis Penicillins Allergy Unknown Verified 05/14/25 08:32 tramadol Allergy ADR-Itching Verified 05/14/25 08:32 Current Medications Generic Name Dose Route Start Last Admin Trade Name Freq PRN Reason Stop Dose Admin Acetaminophen 650 mg 10/04/25 04:44 10/09/25 09:18 Acetaminophen 325 Mg Tablet PO 650 mg Q6H PRN Administration Mild/Mod Pain Or Temp >/= 101 Amlodipine Besylate 5 mg 10/09/25 05:00 10/09/25 09:01 Amlodipine 5 Mg Tablet PO 5 mg DAILY YUSUF Administration Aspirin 81 mg 10/05/25 05:00 10/09/25 09:01 Aspirin 81 Mg Ec Tablet PO 81 mg QAM YUSUF Administration Budesonide 0.5 mg 10/06/25 08:00 10/09/25 08:02 Budesonide 0.5 Mg/2 Ml Neb INHALATION 0.5 mg DAILY.RESPIRATORY YUSUF Administration Cilostazol 100 mg 10/04/25 17:00 10/09/25 17:17 Cilostazol 100 Mg Tablet PO 100 mg BID YUSUF Administration Docusate Sodium 100 mg 10/04/25 05:00 10/09/25 17:17 Docusate Sodium 100 Mg Capsule PO 100 mg BID YUSUF Administration Enoxaparin Sodium 40 mg 10/04/25 04:45 10/09/25 04:28 Enoxaparin 40 Mg/0.4 Ml Syringe SUBCUT 40 mg Q24H YUSUF Administration Furosemide 40 mg 10/06/25 18:05 10/07/25 00:33 Furosemide 10 Mg/Ml Sdv 4ml IVP 40 mg Q12H PRN Administration Shortness of breath Meropenem 2,000 mg/ Sodium 50 mls @ 100 mls/hr 10/08/25 09:00 10/09/25 17:58 Chloride IV Infused Q8H YUSUF Infusion Protocol Vancomycin HCl 1,250 mg in 250 mls @ 166.667 mls/hr 10/08/25 22:00 10/09/25 12:30 Vancocin IV Infused Q12H YUSUF Infusion Insulin Human Lispro 0 unit 10/04/25 08:00 10/09/25 12:47 Insulin Lispro 100 Unit/1 Ml SUBCUT Not Given WM&BEDTIME YUSUF Protocol Ipratropium [place] 0.5 mg 10/05/25 20:00 10/09/25 13:17 Ipratropium 0.5 Mg/2.5 Ml Neb INHALATION 0.5 mg Q6H.RESP YUSUF Administration Lactulose 10 gm 10/04/25 04:44 10/09/25 17:18 Lactulose Oral Liq 20 Gm/30 Ml Udc PO 10 gm Q6H YUSUF Administration Protocol Lanolin 1 applic 10/08/25 16:55 10/08/25 17:19 Lanolin Oint 7 Gm TOPICAL 1 applic PRN PRN Administration DRYNESS Levalbuterol HCl 1.25 mg 10/05/25 20:00 10/09/25 13:17 Levalbuterol 1.25 Mg/3 Ml Neb INHALATION 1.25 mg Q6H.RESP YUSUF Administration Lorazepam 0.5 mg 10/07/25 13:51 10/07/25 20:11 Lorazepam 2 Mg/Ml Inj 1 Ml IVP 0.5 mg ONCE PRN Administration AGITATION Metoprolol Tartrate 12.5 mg 10/05/25 09:00 10/09/25 09:00 Metoprolol Tartrate 25 Mg Tablet PO 12.5 mg BID@0900,2100 YUSUF Administration Morphine Sulfate 15 mg 10/04/25 16:59 10/05/25 06:31 Morphine Ir 15 Mg Tablet PO 15 mg Q8H PRN Administration PAIN Morphine Sulfate 2 - 4 mg 10/08/25 21:49 10/08/25 22:06 Morphine 4 Mg/Ml Sdv 1 Ml IVP 2 mg Q4H PRN Administration SEVERE PAIN Ondansetron HCl 4 mg 10/04/25 04:44 10/08/25 10:35 Ondansetron 2 Mg/Ml Sdv 2 Ml IVP 4 mg Q8H PRN Administration vomiting, or N/V if npo Oxybutynin Chloride 20 mg 10/05/25 05:00 10/09/25 09:00 Oxybutynin Chloride Xl 5 Mg Tablet PO 20 mg DAILY YUSUF Administration Pantoprazole Sodium 40 mg 10/04/25 05:00 10/09/25 09:[address] 40 Mg Tablet PO 40 mg DAILY YUSUF Administration Potassium Phosphate 250 mg 10/09/25 17:00 10/09/25 17:17 Phosphorus 250 Mg Tablet PO 10/12/25 16:59 250 mg BID YUSUF Administration Quetiapine Fumarate 200 mg 10/04/25 21:00 10/08/25 21:01 Quetiapine 100 Mg Tablet PO 200 mg BEDTIME YUSUF Administration Ticagrelor 90 mg 10/04/25 17:00 10/09/25 17:17 Ticagrelor 90 Mg Tablet PO 90 mg BID YUSUF Administration Additional Medication Information meropenem 10/08-current vancomycin 10/06-current levaquin 10/06-10/07 ceftriaxone 10/05-10/07 PFSH Acute PFSH: Medical History (Updated 10/10/25 @ 21:28 by Elke Gresham MD) QIANA (acute kidney injury) Chronic mesenteric ischemia Moderate aortic stenosis NSTEMI (non-ST elevated myocardial infarction) Chronic migraine without aura, intractable, with status migrainosus Hemiparesis affecting right side as late effect of cerebrovascular accident Generalized epilepsy Equinus contracture of left ankle Amputated toe of left foot Amputated toe of right foot Septic arthritis suspected Osteomyelitis of ankle or foot, right, acute Acute osteomyelitis of right foot Acute respiratory failure with hypoxia PAD (peripheral artery disease) Hammertoe of left foot Thrombocytosis, unspecified Diabetes Cellulitis Essential hypertension Depression Anemia 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 COPD (chronic obstructive pulmonary disease) Hypersensitivity pneumonitis Rheumatoid arthritis Infection of total left knee replacement Right wrist deformity History of stroke Acute exacerbation of chronic obstructive pulmonary disease (COPD) Acute encephalopathy Acute alteration in mental status Sepsis Sacral pressure ulcer Cellulitis of gluteal region Seizure disorder Hypoxemia Seizure UTI (urinary tract infection) Chronic, continuous use of opioids Seizures Acute and chronic respiratory failure with hypoxia Pneumonia Pneumonia Acute hypoxemic respiratory failure Stenosis of left internal carotid artery with cerebral infarction Diabetic foot ulcer Right arm weakness Hoarseness of voice Sepsis Numbness and tingling in both hands Urinary tract infection Chest pain Syncope Needs flu shot Carpal tunnel syndrome, right Urinary incontinence Chronic knee pain Abnormal stress test CAD (coronary artery disease) Acute exacerbation of CHF (congestive heart failure) Unstable angina COPD exacerbation Exposure to COVID-19 virus Compression fracture of L2 lumbar vertebra Right hip pain Dyspnea (HFpEF) heart failure with preserved ejection fraction Candidiasis of vagina History of CVA (cerebrovascular accident) Elevated troponin Pericardial effusion Pressure ulcer Prosthetic joint infection Septic arthritis of knee, left Osteoarthritis of left knee History of hypoglycemic coma Obesity (BMI 35.0-39.9 without comorbidity) Peripheral sensory neuropathy due to type 2 diabetes mellitus Coronary artery disease due to type 2 diabetes mellitus Diabetes type 2, uncontrolled Neuropathy Insomnia Fibromyalgia, primary Hyperlipidemia, mixed CVA (cerebral vascular accident) Dyslipidemia Leukocytosis Chronic obstructive pulmonary disease, unspecified Vitamin D deficiency Type 2 diabetes mellitus with diabetic autonomic (poly)neuropathy Essential hypertension Encounter for long-term opiate analgesic use Opioid contract exists Current every day smoker Chronic pain of left knee Low back pain radiating to both legs Intervertebral disc disorder of lumbar region with myelopathy Lumbosacral spondylosis without myelopathy Osteoarthritis of spine at multiple levels Chronic left-sided low back pain Surgical History (Updated 09/07/25 @ 00:00 by SATHYA Mathis) History of amputation of great toe of both feet Status post left knee replacement History of coronary angiogram Angiogram April 2020 with 90% circumflex lesion, drug-eluting stent placed by Dr. Jerome Status post lumbar laminectomy S/P lumbar fusion DR. Shreya ZAYAS IN [place], [place] L4-L5, L5-S1 S/p bilateral carpal tunnel release History of arthroscopic surgery of elbow BILATERAL S/P hysterectomy S/P knee surgery RIGHT Family History Other CAD (coronary artery disease) Cancer Diabetes Social History (Updated 10/04/25 @ 05:04 by Teto Hickman MD) Smoking and tobacco/nicotine status: former use of tobacco/nicotine Quit status (tobacco/nicotine): has quit using Year quit tobacco: 2023 Former quit date comment: States she smoked from ages [age] 2 packs/day average she now vapes flavor Alcohol intake: former Substance/Drug Use: never Additional social history: Patient states she vapes flavor but not nicotine. She does not drink alcohol, use weed or meth. 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 She wants full CODE STATUS as discussed with Teto Hickman MD on 10/04/2025 Caregiver/support person: Yes Lives independently: No Housing: Alf Marital status: Unknown Marital status details: She and son state she is not service: No Current occupational status: unemployed Pets and animals: Yes Do you think of yourself as: Straight/Heterosexual Current gender identity: Female Vitals/I&O/Wt Last Vital Signs Temp 97.6 F 10/09/25 16:00 Pulse 98 10/09/25 16:00 Resp 16 10/09/25 16:00 BP 115/67 10/09/25 16:00 Pulse Ox 90 10/09/25 16:00 O2 Del Method Nasal Cannula 10/09/25 16:00 O2 Flow Rate 3 10/09/25 13:17 FiO2 60 10/09/25 03:00 10/09/25 10/09/25 10/09/25 06:59 14:59 22:59 Intake Total 170 / 2896.117 1150 / 1150 290 / 1440 Output Total 350 / 1500 Balance -180 / 1114.393 8196 / 1150 290 / 1440 Weight last 48 hrs Weight 100.743 kg Weight 101 kg Weight 97 kg Physical Exam Narrative: Assesed via telehealth General: No acute distress, AO x 3 Pulmonary: No accessory muscle use, no respiratory distress, breathing normally Neuro: AO x 3, moving all limbs Extremity: Status post multiple toe amputations bilaterally Urinary Catheter Management: 2-way Urethral: Cath Placed During This Visit: yes Reason for Continuing Indwelling Catheter: Accurate Measurement of Urinary Output in Critically Ill Patients Urinary Catheter Date of Insertion: 10/04/25 Urinary Catheter Time of Insertion: 06:38 Data 10/10/25 04:28 10/10/25 04:28 Other Labs: Radiology Impressions Chest/Abdomen/Pelvis CTA 10/04/25 01:17 IMPRESSION: 1. Severe atherosclerotic changes of the aorta. 2. No abdominal aortic aneurysm or dissection. 3. 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 Contrast is noted within the celiac artery and its branch vessels. 4. No hydronephrosis or delayed nephrogram. 5. Nonobstructing 5 mm right lower pole renal stone. 6. Moderate fecal retention, correlate for constipation. 7. Vascular surgical evaluation recommended. SMA is patent, including its origin. Chest X-Ray 10/06/25 02:59 IMPRESSION: Pulmonary vascular congestion. Cardiomegaly. Correlate for congestive heart failure. Head CT 10/06/25 08:40 IMPRESSION: 1. No acute intracranial CT findings. 2. Sinusitis. Liver Ultrasound 10/07/25 18:58 IMPRESSION: 1. Pancreas and aorta obscured by bowel gas. 2. Otherwise no acute findings. Laboratory Results WBC 11.23 10^3/uL (3.29-11.43) 10/10/25 04:28 RBC 4.15 10^6/uL (3.85-5.65) 10/10/25 04:28 Hgb 7.90 g/dL (11.27-16.99) L 10/10/25 04:28 Hct 27.6 % (36-47) L 10/10/25 04:28 MCV 66.5 fl (85-98) L 10/10/25 04:28 MCH 19.0 pg (27-33) L 10/10/25 04:28 MCHC 28.6 g/dL (30-55) L 10/10/25 04:28 RDW 24.4 % (12.1-15.1) H 10/10/25 04:28 Plt Count 471 10^3/cmm (157-399) H 10/10/25 04:28 MPV 9.2 fL (7.4-10.4) 10/10/25 04:28 Neut % (Auto) 55.2 % 10/10/25 04:28 Lymph % (Auto) 28.0 % 10/10/25 04:28 [place] % (Auto) 7.5 % 10/10/25 04:28 Eos % (Auto) 4.5 % 10/10/25 04:28 Baso % (Auto) 0.3 % 10/10/25 04:28 Neut # (Auto) 6.21 10^3/uL (1.8-7.7) 10/10/25 04:28 Lymph # (Auto) 3.1 10^3/uL (0.8-4.8) 10/10/25 04:28 [place] # (Auto) 0.8 10^3/uL (0.2-0.9) 10/10/25 04:28 Eos # (Auto) 0.5 10^3/uL (0.0-0.8) 10/10/25 04:28 Baso # (Auto) 0.0 10^3/uL (0.0-0.1) 10/10/25 04:28 Nucleated RBC % (auto) 1.4 % 10/10/25 04:28 Nucleated RBCs # 0.2 /100WBC 10/10/25 04:28 Specimen Type Arterial 10/06/25 09:30 Sample Site Radial, right 10/06/25 09:30 ABG pH 7.34 (7.35-7.45) L 10/06/25 09:30 ABG pCO2 36.6 mmHg (35-45) 10/06/25 09:30 ABG pO2 80.9 mmHg (80.0-100.0) 10/06/25 09:30 ABG PO2/FiO2 Ratio 202 10/06/25 09:30 ABG HCO3 19.9 mmol/L (22-26) L 10/06/25 09:30 ABG O2 Saturation 96.6 10/06/25 09:30 ABG Base Excess -5.3 mmol/L (-2.0-2.0) L 10/06/25 09:30 Freddy Test Pos 10/06/25 09:30 A-a O2 Gradient 21.0 mmHg (5-10) H 10/06/25 09:30 Hematocrit 26.0 % (37-47) L 10/06/25 09:30 Hgb O2 Saturation 94.3 % (95-100) L 10/06/25 09:30 Carboxyhemoglobin 1.4 %THgb (0.4-20.1) 10/06/25 09:30 Methemoglobin 1.0 % (0.4-1.5) 10/06/25 09:30 Total Hemoglobin 8.5 g/dL (12-16) L 10/06/25 09:30 Sodium 138.0 mmol/L (131-143) 10/06/25 09:30 Potassium 4.1 mmol/L (3.5-5.0) 10/06/25 09:30 Glucose 200.0 mg/dL (70-115) H 10/06/25 09:30 Ionized Calcium 1.2 mmol/L (1.1-1.4) 10/06/25 09:30 O2 Delivery Device Nc 10/06/25 09:30 O2 Liters/Min 5.0 % 10/06/25 09:30 FiO2 40.0 % 10/06/25 09:30 Insurance Claims Supervisor AYO Pablo 10/06/25 09:30 Sodium 143 mmol/L (136-145) 10/10/25 04:28 Potassium 3.0 mmol/L (3.5-5.1) L 10/10/25 04:28 Chloride 105 mmol/L (98-107) 10/10/25 04:28 Carbon Dioxide 30 mmol/L (22-29) H 10/10/25 04:28 Anion Gap 11.0 (5-19) 10/10/25 04:28 BUN 13 mg/dL (6-20) 10/10/25 04:28 Creatinine 0.7 mg/dL (0.5-0.9) 10/10/25 04:28 GFR Calculation 85.9 mL/min (90-130) L 10/10/25 04:28 Glucose 128 mg/dL (65-115) H 10/10/25 04:28 POC Glucose 138 mg/dL (70-110) H 10/10/25 05:44 Calculated Osmolality 298 mOsm/kg (285-295) H 10/10/25 04:28 Lactic Acid 2.9 mmol/L (0.5-2.2) H 10/04/25 01:33 Lactic Acid (Sepsis) 1.7 mmol/L (0.5-2.2) 10/04/25 05:22 Lactate 1.0 mmol/L (0.5-2.2) 10/06/25 09:09 Calcium 8.6 mg/dL (8.5-10.5) 10/10/25 04:28 Phosphorus 2.3 mg/dL (2.5-4.5) L 10/09/25 08:59 Magnesium 2.2 mg/dL (1.7-2.3) 10/08/25 05:14 Iron 61 ug/dL (37-145) 10/07/25 21:38 TIBC 345 mcg/dl 10/07/25 21:38 % Saturation 17.6 % (20-50) L 10/07/25 21:38 Unsat Iron Binding 284 ug/dL (112-347) 10/07/25 21:38 Ferritin 874 ng/mL (15-150) H 10/07/25 21:38 Total Bilirubin 0.3 mg/dL (0.15-1.2) 10/10/25 04:28 Direct Bilirubin 0.08 mg/dL (0.00-0.30) 10/04/25 05:22 AST 27 U/L (0-32) 10/10/25 04:28 ALT 64 U/L (0-33) H 10/10/25 04:28 Alkaline Phosphatase 78 U/L (35-105) 10/10/25 04:28 Ammonia 80 umol/L (11-51) H 10/06/25 03:07 Troponin T Baseline 51 ng/L (0-10) H 10/04/25 01:33 Troponin T 60 Minute 46.82 ng/L (0-10) H 10/04/25 02:37 Delta Troponin T -4.18 ABS# (0-10) L 10/04/25 02:37 C-React Prot High Sens 14.600 mg/dL (0.0-0.3) H 10/06/25 09:09 NT-Pro-B Natriuret Pep 801 pg/mL (0-125) H 10/04/25 01:33 Total Protein 5.7 g/dL (6.6-8.7) L 10/10/25 04:28 Albumin 3.1 g/dL (3.5-5.2) L 10/10/25 04:28 Globulin 2.6 g/dL (1.3-4.6) 10/10/25 04:28 Lipase 20 U/L (13-60) 10/04/25 01:33 Vitamin B12 729 pg/mL (232-1245) 10/07/25 21:38 Folate > 20.0 ng/mL (4.8-37.3) 10/07/25 21:38 TSH 1.83 uIU/mL (0.27-4.20) 10/07/25 21:38 Urine Color Yellow (Yellow) 10/04/25 01:45 Urine Appearance Clear (CLEAR) 10/04/25 01:45 Urine pH 5.0 (5-7) 10/04/25 01:45 Ur Specific [place] 1.023 (1.005-1.030) 10/04/25 01:45 Urine Protein Trace (Negative) A 10/04/25 01:45 Urine Glucose (UA) 3+ (Normal) H 10/04/25 01:45 Urine Ketones Negative (Negative) 10/04/25 01:45 Urine Blood Negative (Negative) 10/04/25 01:45 Urine Nitrate Positive (Negative) A 10/04/25 01:45 Urine Bilirubin Negative (Negative) 10/04/25 01:45 Urine Urobilinogen 0.2 mg/dL (Negative) 10/04/25 01:45 Ur Leukocyte Esterase Negative (Negative) 10/04/25 01:45 Urine RBC 0-2 /hpf (0-2) 10/04/25 01:45 Urine WBC 6-10 /hpf (0-5) 10/04/25 01:45 Ur Squamous Epith Cells 0-5 /hpf (0-5) 10/04/25 01:45 Amorphous Sediment Not Reportable 10/04/25 01:45 Urine Bacteria 4+ /hpf (NONE) H 10/04/25 01:45 Hyaline Casts 1.21 /lpf 10/04/25 01:45 Nasal MRSA (PCR) Mrsa detected (Not Detecte) A 10/07/25 21:40 Vancomycin Trough 11.1 ug/mL (10-15) 10/08/25 09:44 Adenovirus (PCR) Not detected (NOT DETECT) 10/06/25 04:45 C. pneumoniae DNA (PCR) Not detected (NOT DETECT) 10/06/25 04:45 Coronavirus 229E (PCR) Not detected (NOT DETECT) 10/06/25 04:45 Human Metapneumovir PCR Not detected (NOT DETECT) 10/06/25 04:45 Influenza A (H1) PCR Not detected (NOT DETECT) 10/06/25 04:45 Influ A (H1/09) PCR Not detected (NOT DETECT) 10/06/25 04:45 Influenza A (H3) PCR Not detected (NOT DETECT) 10/06/25 04:45 Influenza Type A (PCR) Not detected (NOT DETECT) 10/06/25 04:45 Influenza Type B (PCR) Not detected (NOT DETECT) 10/06/25 04:45 M. pneumoniae (PCR) Not detected (NOT DETECT) 10/06/25 04:45 Parainfluenza 1 (PCR) Not detected (NOT DETECT) 10/06/25 04:45 Parainfluenza 2 (PCR) Not detected (NOT DETECT) 10/06/25 04:45 Parainfluenza 3 (PCR) Not detected (NOT DETECT) 10/06/25 04:45 Parainfluenza 4 (PCR) Not detected (NOT DETECT) 10/06/25 04:45 RSV Type A (PCR) Not detected (NOT DETECT) 10/06/25 04:45 RSV Type B (PCR) Not detected (NOT DETECT) 10/06/25 04:45 Entero/Rhino (PCR) Not detected (NOT DETECT) 10/06/25 04:45 SARS-CoV-2 (PCR) Not detected (NOT DETECT) 10/06/25 04:45 Micro: NAME: Mayra Ascencio LOC: [facility] U #: [id number] AGE/SX: 60/F ROOM: 250 RE10/04/[address]: Christina Soriano MD : 1965 BED: 1 DIS: FAX #: STATUS: ADM IN TLOC: Spec #: [id number] Nikki: 10/06/25-1022 Status: RES Req #: [id number] Recd: 10/06/25-[address]: Christina Soriano MD Src: Blood SpDesc: Ordered: Bcult Procedure Result Verified Site Blood Culture Preliminary 10/07/25-1038 NEGATIVE TO DATE Blood Culture Preliminary (changed) 10/06/25-1045 SPECIMEN COLLECTED [facility] [address] [place] [address] DR. ANTELMO CARTAGENA, CLOTH PRESSER NAME: Mayra Ascencio LOC: [facility] U #: [id number] AGE/SX: 60/F ROOM: 256 RE10/04/[address]: Christina Soriano MD : 1965 BED: 1 DIS: FAX #: STATUS: ADM IN TLOC: Spec #: [id number] Nikki: 10/04/25-0145 Status: COMP Req #: [id number] Recd: 10/04/[address]: Jem Valdez DO Src: Urine CC SpDesc: Ordered: UC Procedure Result Verified Site Urine Culture Final 10/06/25-5761 Organism 1 Escherichia coli Sidney Count >100,000 CFU/ml DAY 2 E coli M.I.C. RX --------- ------ * Amoxicillin/Clavulanate 16/8 I * Ampicillin >16 R * Ampicillin/Sulbactam >16/8 R * Cefazolin >16 R * Cefepime <=2 S * Ceftazidime-Avibactam <=4 S * Ceftriaxone <=1 S * Ciprofloxacin >2 R * Gentamicin <=4 S * Imipenem <=1 S * Levofloxacin >4 R * Merpenem-Vaborbactam <=2 S * Nitrofurantoin <=32 S * Trimethoprim/Sulfamethoxazole >2/38 R * Piperacillin/Tazobactam <=16 S Urine Culture Preliminary (changed) 10/05/25-1026 Organism 1 Gram Negative Rods Sidney Count >100,000 CFU/ml DAY 1, RESULTS TO FOLLOW A&P Assessment and plan 1. UTI (urinary tract infection): 2. Aspiration into lower respiratory tract: 3. Diarrhea: 4. Altered mental status: Resolved now. Plan: 60-year-old lady lady with multiple medical comorbidities along with complicated past medical history as above currently admitted for chronic mesenteric ischemia with hospital course complicated by encephalopathy, hypoxia both no improving. Encephalopathy likely related to polypharmacy. Bilateral lung infiltrates suspected aspiration versus fluid overload. Positive UA with urine culture showing E. coli. Blood cultures so far negative. D/c meropenem, can narrow to cefepime based on sensitivities. continue vanc for now, with aim to d/c over next 24 hrs if remains stable. Check C. difficile as patient has prior history currently has had 4 episodes of diarrhea. PDMP PDMP Reviewed: Not Reviewed Consult Attestations Medical Necessity Statement: As per primary team. Diagnoses UTI (urinary tract infection) N39.0 Aspiration into lower respiratory tract T17.800A; W44.9XXA Diarrhea R19.7 Altered mental status R41.82
[2025-10-10] VITALS (12 sets, daily range): BP systolic 117–194; BP diastolic 62–99; PULSE 83–101; RESP 17–20; TEMP 36.6–36.9; O2SAT 94–97
[2025-10-10] MEDS: MEROPENEM 2,000 MG in sodium chloride 0.9% (plus) 50 ML 100 MG IV (01:19)
[2025-10-10 05:02] LABS: Hematocrit 27.6 % (36-47); Hemoglobin 7.90 g/dL (11.27-16.99); Mean Corpuscular HGB Conc 28.6 g/dL (30-55); Mean Corpuscular Hemoglobin 19.0 pg (27-33); Mean Corpuscular Volume 66.5 fl (85-98); Nucleated Red Blood Cells % 1.4 %; Platelet Count 471 10^3/cmm (157-399); Red Blood Count 4.15 10^6/uL (3.85-5.65); White Blood Count 11.23 10^3/uL (3.29-11.43)
[2025-10-10 05:28] LABS: Alanine Aminotransferase 64 U/L (0-33); Albumin Level 3.1 g/dL (3.5-5.2); Alkaline Phosphatase 78 U/L (35-105); Anion Gap 11.0 (5-19); Aspartate Amino Transferase 27 U/L (0-32); Blood Urea Nitrogen 13 mg/dL (6-20); Calcium 8.6 mg/dL (8.5-10.5); Carbon Dioxide 30 mmol/L (22-29); Chloride 105 mmol/L (98-107); Globulin 2.6 g/dL (1.3-4.6); Glucose 128 mg/dL (65-115); Osmolality Calculated 298 mOsm/kg (285-295); Potassium 3.0 mmol/L (3.5-5.1); Sodium 143 mmol/L (136-145); Total Protein 5.7 g/dL (6.6-8.7)
[2025-10-10] MEDS: oxybutynin chloride XL 5 MG TABLET 20 MG PO (05:32)
[2025-10-10] MEDS: insulin glargine 100 units/1 mL 50 UNIT SUBCUT (05:58)
[2025-10-10] MEDS: cefepime 1,000 mg SDV 1000 MG IVP ×2 (08:19→17:16)
[2025-10-10 12:23] LABS: C.Diff PCR (Lab) POSITIVE (Negative)
[2025-10-10 13:57] LABS: Clostridioides Difficile Toxin NEGATIVE (Negative)
--- NOTE | 2025-10-10 14:04 | P.PN_ITS ---
Subjective 2 Subjective: patient was seen in the morning and currently doing well. Patient requests morphine however she is stable with other alternatives for pain WBC counts are improving, ID recommendation highly appreciated Patient getting better overall and did not voice any complaints Medications: Medication Review Details: meropenem 10/08-current vancomycin 10/06-current levaquin 10/06-10/07 ceftriaxone 10/05-10/07 Vitals/I&O/Wt Last Vital Signs Temp 97.8 F 10/10/25 11:57 Pulse 89 10/10/25 13:18 Resp 18 10/10/25 13:18 BP 136/82 10/10/25 11:57 Pulse Ox 95 10/10/25 13:18 O2 Del Method Nasal Cannula 10/10/25 13:18 O2 Flow Rate 3 10/10/25 13:18 FiO2 60 10/09/25 03:00 10/09/25 10/10/25 10/10/25 22:59 06:59 14:59 Intake Total 290 / 1440 300 / 1740 1210 / 1210 Output Total 150 / 150 400 / 550 Balance 140 / 1290 -100 / 1190 1210 / 1210 Weight last 48 hrs Weight 106.594 kg Weight 100.743 kg Weight 101 kg Physical Exam 2 Narrative: General: Oriented to place and person and somewhat to time, awake and alert, able to interact and is coherent better than yesterday HEENT: Gross normal exam Cardio: Normal rate rhythm normal S1-S2 without any murmurs, normal JVD Respiratory: Bilateral equal air entry with mild wheezes and coarse crackles secretions that are better. GI: Abdomen soft, mild tender on deep palpation, no guarding and normal bowel sounds Neuro alert and oriented to place and person, grossly unremarkable neurological exam Extremities: Unequal and feeble pulses however palpable and peripheries are well-perfused, bilateral foot stumps appreciated without any concerns of the skin, mild trace edema bilaterally in the lower extremities Shiny skin and features of peripheral artery disease are evident. Patient has bilateral foot stumps, no concerns Urinary Catheter Management: 2-way Urethral: Cath Placed During This Visit: yes Reason for Continuing Indwelling Catheter: Acute Urinary Retention or Obstruction Urinary Catheter Date of Insertion: 10/04/25 Urinary Catheter Time of Insertion: 06:38 Data 10/10/25 04:28 10/10/25 04:28 A&P Assessment and plan 1. Severe sepsis: Currently resolved, Severe sepsis episode leading to acute encephalopathy on ~10/06/2025 2 sets of blood culture prelim till date negative, urine showed ESBL E. coli ID consulted and switched to cefepime MRSA positive, continue vancomycin as per pharmacy protocol and to discontinue at the time of discharge Patient having diarrhea, C. difficile positive started on vancomycin oral 125 mg Q6 for 14 days, awaiting on ID input further to guide and tailor accordingly Maintain 2 IV bore cannulas. Intake and output monitoring Maintain MAP above 65 2. C. difficile diarrhea: Patient found to have C. difficile positive as she was complaining of diarrhea Oral vancomycin 125 mg oral Q6 hourly for 10 to 14 days ID on board and follow the further recommendations 3. Disorientation: Currently resolved Multifactorial reasons: Including high likelihood of obtunded/metabolic encephalopathy secondary to sedatives/analgesics with high-dose morphine and gabapentin which patient was taking at home and was resumed on the request of patient on 10/06/2025, urine showing ESBL, and worsening of overload? CT head unremarkable for acute stroke. MRSA positive continue vancomycin possible sepsis since the patient has high leukocytosis and is improving Urine culture showed ESBL, ID recommended cefepime Hold analgesic sedatives at the moment Fall precautions and reorientation Intake and output monitoring Neurochecks frequently 4. Acute hypoxemic respiratory failure: Possible aspiration versus fluid overload versus atypical pneumonia? Oxygen therapy as per protocol to maintain the oxygenation above 90 to 92% Lasix 40 mg IV as needed for shortness of breath Lasix 20 mg oral daily DuoNebs and oxygen therapy as per protocol Management of sepsis as mentioned above Respiratory viral panel negative 5. Transaminitis: Currently improving, avoid hepatotoxic medication Can resume atorvastatin 40 mg daily PCP follow-up at the time of discharge 6. Hypertension: Hold losartan and continue amlodipine 5 mg. Since the patient blood pressure is in normal range, continue to monitor 7. Chronic mesenteric ischemia: Continue aspirin, cilostazol and ticagrelor Continue 40 mg atorvastatin and ezetimibe 8. 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 Butt for diabetic disease. The feet stumps look healthy currently without ulceration Continue anticoagulatin ticagrelor and cilostazol Atorvastatin 40 mg daily along with ezetimibe Continue beta-blockers 9. CAD (coronary artery disease): Recent stent to RCA in-stent restenosis on 09/05/2025 Continue on beta-nany 12.5 mg twice daily Continue with aspirin and ticagrelor Continue atorvastatin and ezetimibe Cardiology follow-up at the time of discharge 10. Urinary retention: Urine culture showed ESBL Continue cefepime as per ID recommendation Monitor intake and output Monitor and correction of electrolytes accordingly 11. Type 2 diabetes mellitus with diabetic polyneuropathy, unspecified whether penitentiary insulin use: Continue gabapentin for neuropathy. Patient still having mild hypoglycemic episodes in the morning, Lantus reduced to 30 units in the morning Insulin sliding scale Hypoglycemia protocol 12. Moderate aortic stenosis: Stable 13. Sleep apnea-like behavior: Recommend workup for sleep apnea outpatient and commodity supervisor follow-up Plan: bed placement coordinator on board for further safe disposition of the patient after discussing with the son since patient cannot be independent, has bilateral foot stumps that further limits her mobility and also with multiple comorbidities and requires assistance in her daily life for medical optimization as well and to avoid recurrent hospital admissions PDMP PDMP Reviewed: Not Reviewed Attestations 2 Medical Necessity Statement*: Patient will stay over midnight for further management of sepsis leading to acute metabolic encephalopathy requiring ICU monitoring, currently being transferred to wards, pending ID consultation for further ESBL E. coli in the urine management Time Spent in Patient Care: 16 - 35 minutes (>than 50% of time sp ent in counselling and/or direct pt care on unit) . Other Attestations: Patient condition has been discussed at length with the patient/family, I have independently reviewed the chart labs imaging/diagnostics/EKG. the goals of care and code status with the patient/family/NOK/legal desk representative, and documented accordingly. I have reconciled the medications after confirmation/comorbidities/current clinical condition. The management has been done according to the current clinical condition with respect to patient goals of care and based on recommendations/guidelines. The patient/family has been informed about the current condition and further plan of care. Agreed with the plan of care and understood without any language barrier. Every effort was made to ensure accuracy of dirt contractor. Any obvious errors or omissions should be clarified with the author of the document. Coding Level of Care Code 37774 Diagnoses Severe sepsis A41.9; R65.20 C. difficile diarrhea A04.72 Disorientation R41.0 Altered mental status type: disorientation Acute hypoxemic respiratory failure J96.01 Transaminitis R74.01 Hypertension I10 Chronic mesenteric ischemia K55.1 PAD (peripheral artery disease) I73.9 CAD (coronary artery disease) I25.110 Associated angina: with unstable angina Coronary Disease-Associated Artery/Lesion type: unspecified vessel or lesion type [place] vs. 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
--- NOTE | 2025-10-10 21:58 | P.PN_ITS ---
Subjective 2 Subjective: ID progress note Stool tested C diff positive Medications: Reviewed: Yes Medication Review Details: meropenem 10/08-current vancomycin 10/06-current levaquin 10/06-10/07 ceftriaxone 10/05-10/07 Vitals/I&O/Wt Last Vital Signs Temp 97.9 F 10/10/25 19:51 Pulse 83 10/10/25 20:33 Resp 17 10/10/25 20:33 BP 164/99 10/10/25 21:31 Pulse Ox 94 10/10/25 20:33 O2 Del Method Nasal Cannula 10/10/25 20:33 O2 Flow Rate 3 10/10/25 20:33 FiO2 60 10/09/25 03:00 10/10/25 10/10/25 10/10/25 06:59 14:59 22:59 Intake Total 300 / 1740 1210 / 1210 710 / 1920 Output Total 400 / 550 450 / 450 Balance -100 / 1190 1210 / 1210 260 / 1470 Weight last 48 hrs Weight 106.594 kg Weight 100.743 kg Weight 101 kg Physical Exam 2 Narrative: Assesed via telehealth General: No acute distress, AO x 3 Pulmonary: No accessory muscle use, no respiratory distress, breathing normally Neuro: AO x 3, moving all limbs Extremity: Status post multiple toe amputations bilaterally Urinary Catheter Management: 2-way Urethral: Cath Placed During This Visit: yes Reason for Continuing Indwelling Catheter: Accurate Measurement of Urinary Output in Critically Ill Patients Urinary Catheter Date of Insertion: 10/04/25 Urinary Catheter Time of Insertion: 06:38 Data 10/10/25 04:28 10/10/25 04:28 A&P Assessment and plan 1. UTI (urinary tract infection): 2. Aspiration into lower respiratory tract: 3. Diarrhea: 4. Altered mental status: Resolved now. Plan: 60-year-old lady lady with multiple medical comorbidities along with complicated past medical history as above currently admitted for chronic mesenteric ischemia with hospital course complicated by encephalopathy, hypoxia both no improving. Encephalopathy likely related to polypharmacy. Bilateral lung infiltrates suspected aspiration versus fluid overload. Positive UA with urine culture showing E. coli. Blood cultures so far negative. D/c meropenem, can narrow to cefepime based on sensitivities. continue vanc for now, with aim to d/c over next 24 hrs if remains stable. Check C. difficile as patient has prior history currently has had 4 episodes of diarrhea. 10/10/25: Stool C diff PCR +, started on po vancomycin 125mg q6h Continue cefepime for today, she can be trainsitioned to po nitrofurantoin at discharge to complete total 7 days treatment for acute cytsitis. (10/08-10/12). Can d/c vancomycin at discharge if leukocytosis remains stable. Clinically appears well, non toxic. PDMP PDMP Reviewed: Not Reviewed Attestations 2 Medical Necessity Statement*: per admitting Coding Level of Care Code Acute Code for Chg Fwd Diagnoses UTI (urinary tract infection) N39.0 Aspiration into lower respiratory tract T17.800A; W44.9XXA Diarrhea R19.7 Altered mental status R41.82
[2025-10-11] VITALS (8 sets, daily range): BP systolic 138–186; BP diastolic 66–91; PULSE 90–101; RESP 16–20; TEMP 36.4–36.6; O2SAT 93–98
[2025-10-11] MEDS: morphine 4 mg/mL SDV 1 mL IVP (00:01)
[2025-10-11] MEDS: cefepime 1,000 mg SDV 1000 MG IVP ×2 (00:02→06:31)
[2025-10-11 05:21] LABS: Hematocrit 26.8 % (36-47); Hemoglobin 7.50 g/dL (11.27-16.99); Mean Corpuscular HGB Conc 28.0 g/dL (30-55); Mean Corpuscular Hemoglobin 19.0 pg (27-33); Mean Corpuscular Volume 67.8 fl (85-98); Nucleated Red Blood Cells % 0.3 %; Platelet Count 429 10^3/cmm (157-399); Red Blood Count 3.95 10^6/uL (3.85-5.65); White Blood Count 9.38 10^3/uL (3.29-11.43)
[2025-10-11 05:37] LABS: Alanine Aminotransferase 42 U/L (0-33); Albumin Level 2.9 g/dL (3.5-5.2); Alkaline Phosphatase 64 U/L (35-105); Anion Gap 10.6 (5-19); Aspartate Amino Transferase 19 U/L (0-32); Blood Urea Nitrogen 11 mg/dL (6-20); Calcium 8.2 mg/dL (8.5-10.5); Carbon Dioxide 28 mmol/L (22-29); Chloride 107 mmol/L (98-107); Globulin 2.4 g/dL (1.3-4.6); Glucose 149 mg/dL (65-115); Magnesium 1.9 mg/dL (1.7-2.3); Osmolality Calculated 296 mOsm/kg (285-295); Potassium 3.6 mmol/L (3.5-5.1); Sodium 142 mmol/L (136-145); Total Protein 5.3 g/dL (6.6-8.7)
[2025-10-11] MEDS: oxybutynin chloride XL 5 MG TABLET 20 MG PO (06:26)
[2025-10-11] MEDS: insulin glargine 100 units/1 mL 30 UNIT SUBCUT (06:27)
--- NOTE | 2025-10-11 12:39 | PC.SOCIAL ---
IMM Updated Updated pt on IMM. No questions voiced. Provided pt a copy. Initialed, dated, & timed copy in chart.
--- NOTE | 2025-10-11 22:48 | PM.DCS ---
Discharge Providers Date of Admission: 10/04/25 03:55 Date of Discharge: October 11, 2025 Attending Provider at Admission: Teto Hickman MD Attending Provider at Discharge: Christina Soriano MD Primary Care Provider: Keila Crespo MD Diagnoses at Discharge Discharge Diagnosis 1. UTI (urinary tract infection): 2. Aspiration into lower respiratory tract: 3. Diarrhea: 4. Altered mental status: Reason for Visit Reason for Visit: cp Brief History: As per the admitting physician and the retrospective notes reviewed: Mayra Ascencio is a 60 year old female with history of coronary artery disease and mesenteric as well as left peripheral artery disease has had multiple stents. Patient comes in today complaining of chest and abdominal pain. She reports having history of Crohn's. Patient states that her abdomen has pain and pressure for the last 1 week. She has bowel movements twice a day normal amount no blood. She has had nausea and dry heaves but no vomiting she has had constipation at times but also diarrhea 3 times a week. She admits to having blood transfusions starting at childbirth and then with surgery each time possibly 6 or 7 times in her lifetime. She denies being told ever that she has iron deficiency anemia. Patient has history of drug-eluting stent 2020 and circumflex artery lesion by Dr. Jerome she also had RCA in-stent restenosis ballooned and stented by Dr. Lyles on 09/05/2025. 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 She was provided with adequate analgesia. And adequate medication reconciled according to her chronic comorbidities. She also had QIANA which improved subsequently. During her hospital stay she was also having tachycardia therefore metoprolol was started. Considering patient having significant peripheral artery disease and was only on ezetimibe, statins were also added. She was supposedly for discharge on 10/06/2025, and based on her request she was resumed on her home medications including her pain medication which was high-dose morphine and gabapentin, she got obtunded overnight which could be related to her aspiration however the other reason could be worsening of her fluid overload status with wheezing and shortness of breath, and worsening of urinary tract infection which was of ESBL. CT head was negative. She was taken to ICU and was monitored there with holding of high dose analgesics/sedatives. She did not require intubation. Narcan was given but it was partial improvement. Over the course of 2 to 3 days she improved in ICU. Her high-dose morphine was kept on hold and it was initially planned for her safe discharge to SNF however after discussion of the case filler with the son Home health was arranged and her discharge to home was in the plan. ID was consulted because her urine showed ESBL for further management. I will appreciate the ID recommendation. She was initially placed on meropenem for her ESBL and then narrowed down to cefepime based on sensitivities. She was also given vancomycin IV and she had diarrhea C. difficile was also sent and was positive. Her leukocytes markedly improved. And at the time of discharge for her ESBL nitrofurantoin was prescribed and oral vancomycin was continued for C. difficile management. She also had iron deficiency anemia with some chronic element and was discharged on iron supplements with follow-up with the primary care. Patient was provided with medications that were were reconciled after confirmation and according to patient comorbidities and appropriate follow-ups and referrals were provided at the time of discharge. patient understanding/establishing the stability of the current condition was considered during discharge with all the risk and benefits thoroughly explained. Patient condition has been discussed at length with the patient/family, I have independently reviewed the chart labs imaging/diagnostics/EKG. the goals of care and code status with the patient/family/NOK/legal veterans service representative, and documented accordingly. The management has been done according to the current clinical condition with respect to patient goals of care and based on recommendations/guidelines. The patient/family has been informed about the current condition and further plan of care. Agreed with the plan of care and understood without any language barrier. Every effort was made to ensure accuracy of canceling and cutting control clerk. Any obvious errors or omissions should be clarified with the author of the document. Physical Exam Narrative: General: Alert and oriented to time place and person, awake and alert, able to interact and is coherent HEENT: Gross normal exam Cardio: Normal rate rhythm normal S1-S2 without any murmurs, normal JVD Respiratory: Bilateral equal air entry with mild wheezes and coarse crackles secretions that are better. GI: Abdomen soft, mild tender on deep palpation, no guarding and normal bowel sounds Neuro alert and oriented,, grossly unremarkable neurological exam Extremities: Unequal and feeble pulses however palpable and peripheries are well-perfused, bilateral foot stumps appreciated without any concerns of the skin, mild trace edema bilaterally in the lower extremities Shiny skin and features of peripheral artery disease are evident. Patient has bilateral foot stumps, no concerns Urinary Catheter Management: 2-way Urethral: Cath Placed During This Visit: yes Reason for Continuing Indwelling Catheter: Acute Urinary Retention or Obstruction Urinary Catheter Date of Insertion: 10/04/25 Urinary Catheter Time of Insertion: 06:38 Discharge Data Studies Completed and Pending Completed Studies During Hospitalization Category Date Time Status CT ang ches abdpel [id number] Stat Cat Scan 10/04/25 01:[address] head wo con* [id number] Stat Cat Scan 10/06/25 08:40 Completed CXRP [XR chest 1V portable [id number]] Stat Exams 10/04/25 01:17 Completed CXRP [XR chest 1V portable [id number]] Stat Exams 10/06/25 02:59 Completed US liver [id number] Urgent Ultrasound 10/07/25 18:58 Completed Radiology Impressions Chest/Abdomen/Pelvis CTA 10/04/25 01:17 IMPRESSION: 1. Severe atherosclerotic changes of the aorta. 2. No abdominal aortic aneurysm or dissection. 3. 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 Contrast is noted within the celiac artery and its branch vessels. 4. No hydronephrosis or delayed nephrogram. 5. Nonobstructing 5 mm right lower pole renal stone. 6. Moderate fecal retention, correlate for constipation. 7. Vascular surgical evaluation recommended. SMA is patent, including its origin. Chest X-Ray 10/06/25 02:59 IMPRESSION: Pulmonary vascular congestion. Cardiomegaly. Correlate for congestive heart failure. Head CT 10/06/25 08:40 IMPRESSION: 1. No acute intracranial CT findings. 2. Sinusitis. Liver Ultrasound 10/07/25 18:58 IMPRESSION: 1. Pancreas and aorta obscured by bowel gas. 2. Otherwise no acute findings. Laboratory Results WBC 9.38 10^3/uL (3.29-11.43) 10/11/25 04:55 RBC 3.95 10^6/uL (3.85-5.65) 10/11/25 04:55 Hgb 7.50 g/dL (11.27-16.99) L 10/11/25 04:55 Hct 26.8 % (36-47) L 10/11/25 04:55 MCV 67.8 fl (85-98) L 10/11/25 04:55 MCH 19.0 pg (27-33) L 10/11/25 04:55 MCHC 28.0 g/dL (30-55) L 10/11/25 04:55 RDW 25.6 % (12.1-15.1) H 10/11/25 04:55 Plt Count 429 10^3/cmm (157-399) H 10/11/25 04:55 MPV 9.1 fL (7.4-10.4) 10/11/25 04:55 Neut % (Auto) 46.6 % 10/11/25 04:55 Lymph % (Auto) 34.9 % 10/11/25 04:55 [place] % (Auto) 7.2 % 10/11/25 04:55 Eos % (Auto) 7.8 % 10/11/25 04:55 Baso % (Auto) 0.2 % 10/11/25 04:55 Neut # (Auto) 4.37 10^3/uL (1.8-7.7) 10/11/25 04:55 Lymph # (Auto) 3.3 10^3/uL (0.8-4.8) 10/11/25 04:55 [place] # (Auto) 0.7 10^3/uL (0.2-0.9) 10/11/25 04:55 Eos # (Auto) 0.7 10^3/uL (0.0-0.8) 10/11/25 04:55 Baso # (Auto) 0.0 10^3/uL (0.0-0.1) 10/11/25 04:55 Nucleated RBC % (auto) 0.3 % 10/11/25 04:55 Nucleated RBCs # 0.0 /100WBC 10/11/25 04:55 Specimen Type Arterial 10/06/25 09:30 Sample Site Radial, right 10/06/25 09:30 ABG pH 7.34 (7.35-7.45) L 10/06/25 09:30 ABG pCO2 36.6 mmHg (35-45) 10/06/25 09:30 ABG pO2 80.9 mmHg (80.0-100.0) 10/06/25 09:30 ABG PO2/FiO2 Ratio 202 10/06/25 09:30 ABG HCO3 19.9 mmol/L (22-26) L 10/06/25 09:30 ABG O2 Saturation 96.6 10/06/25 09:30 ABG Base Excess -5.3 mmol/L (-2.0-2.0) L 10/06/25 09:30 Freddy Test Pos 10/06/25 09:30 A-a O2 Gradient 21.0 mmHg (5-10) H 10/06/25 09:30 Hematocrit 26.0 % (37-47) L 10/06/25 09:30 Hgb O2 Saturation 94.3 % (95-100) L 10/06/25 09:30 Carboxyhemoglobin 1.4 %THgb (0.4-20.1) 10/06/25 09:30 Methemoglobin 1.0 % (0.4-1.5) 10/06/25 09:30 Total Hemoglobin 8.5 g/dL (12-16) L 10/06/25 09:30 Sodium 138.0 mmol/L (131-143) 10/06/25 09:30 Potassium 4.1 mmol/L (3.5-5.0) 10/06/25 09:30 Glucose 200.0 mg/dL (70-115) H 10/06/25 09:30 Ionized Calcium 1.2 mmol/L (1.1-1.4) 10/06/25 09:30 O2 Delivery Device Nc 10/06/25 09:30 O2 Liters/Min 5.0 % 10/06/25 09:30 FiO2 40.0 % 10/06/25 09:30 Mink Slicer ID Broma 10/06/25 09:30 Sodium 142 mmol/L (136-145) 10/11/25 04:55 Potassium 3.6 mmol/L (3.5-5.1) 10/11/25 04:55 Chloride 107 mmol/L (98-107) 10/11/25 04:55 Carbon Dioxide 28 mmol/L (22-29) 10/11/25 04:55 Anion Gap 10.6 (5-19) 10/11/25 04:55 BUN 11 mg/dL (6-20) 10/11/25 04:55 Creatinine 0.6 mg/dL (0.5-0.9) 10/11/25 04:55 GFR Calculation 102.7 mL/min (90-130) 10/11/25 04:55 Glucose 149 mg/dL (65-115) H 10/11/25 04:55 POC Glucose 192 mg/dL (70-110) H 10/11/25 10:50 Calculated Osmolality 296 mOsm/kg (285-295) H 10/11/25 04:55 Lactic Acid 2.9 mmol/L (0.5-2.2) H 10/04/25 01:33 Lactic Acid (Sepsis) 1.7 mmol/L (0.5-2.2) 10/04/25 05:22 Lactate 1.0 mmol/L (0.5-2.2) 10/06/25 09:09 Calcium 8.2 mg/dL (8.5-10.5) L 10/11/25 04:55 Phosphorus 2.3 mg/dL (2.5-4.5) L 10/09/25 08:59 Magnesium 1.9 mg/dL (1.7-2.3) 10/11/25 04:55 Iron 61 ug/dL (37-145) 10/07/25 21:38 TIBC 345 mcg/dl 10/07/25 21:38 % Saturation 17.6 % (20-50) L 10/07/25 21:38 Unsat Iron Binding 284 ug/dL (112-347) 10/07/25 21:38 Ferritin 874 ng/mL (15-150) H 10/07/25 21:38 Total Bilirubin 0.2 mg/dL (0.15-1.2) 10/11/25 04:55 Direct Bilirubin 0.08 mg/dL (0.00-0.30) 10/04/25 05:22 AST 19 U/L (0-32) 10/11/25 04:55 ALT 42 U/L (0-33) H 10/11/25 04:55 Alkaline Phosphatase 64 U/L (35-105) 10/11/25 04:55 Ammonia 80 umol/L (11-51) H 10/06/25 03:07 Troponin T Baseline 51 ng/L (0-10) H 10/04/25 01:33 Troponin T 60 Minute 46.82 ng/L (0-10) H 10/04/25 02:37 Delta Troponin T -4.18 ABS# (0-10) L 10/04/25 02:37 C-React Prot High Sens 14.600 mg/dL (0.0-0.3) H 10/06/25 09:09 NT-Pro-B Natriuret Pep 801 pg/mL (0-125) H 10/04/25 01:33 Total Protein 5.3 g/dL (6.6-8.7) L 10/11/25 04:55 Albumin 2.9 g/dL (3.5-5.2) L 10/11/25 04:55 Globulin 2.4 g/dL (1.3-4.6) 10/11/25 04:55 Lipase 20 U/L (13-60) 10/04/25 01:33 Vitamin B12 729 pg/mL (232-1245) 10/07/25 21:38 Folate > 20.0 ng/mL (4.8-37.3) 10/07/25 21:38 TSH 1.83 uIU/mL (0.27-4.20) 10/07/25 21:38 Urine Color Yellow (Yellow) 10/04/25 01:45 Urine Appearance Clear (CLEAR) 10/04/25 01:45 Urine pH 5.0 (5-7) 10/04/25 01:45 Ur Specific [place] 1.023 (1.005-1.030) 10/04/25 01:45 Urine Protein Trace (Negative) A 10/04/25 01:45 Urine Glucose (UA) 3+ (Normal) H 10/04/25 01:45 Urine Ketones Negative (Negative) 10/04/25 01:45 Urine Blood Negative (Negative) 10/04/25 01:45 Urine Nitrate Positive (Negative) A 10/04/25 01:45 Urine Bilirubin Negative (Negative) 10/04/25 01:45 Urine Urobilinogen 0.2 mg/dL (Negative) 10/04/25 01:45 Ur Leukocyte Esterase Negative (Negative) 10/04/25 01:45 Urine RBC 0-2 /hpf (0-2) 10/04/25 01:45 Urine WBC 6-10 /hpf (0-5) 10/04/25 01:45 Ur Squamous Epith Cells 0-5 /hpf (0-5) 10/04/25 01:45 Amorphous Sediment Not Reportable 10/04/25 01:45 Urine Bacteria 4+ /hpf (NONE) H 10/04/25 01:45 Hyaline Casts 1.21 /lpf 10/04/25 01:45 Nasal MRSA (PCR) Mr[place] detected (Not Detecte) A 10/07/25 21:40 Vancomycin Trough 15.5 ug/mL (10-15) H 10/10/25 09:03 Adenovirus (PCR) Not detected (NOT DETECT) 10/06/25 04:45 C. pneumoniae DNA (PCR) Not detected (NOT DETECT) 10/06/25 04:45 C. difficile (PCR) Positive (Negative) H 10/10/25 10:22 C.difficile Tox Confrm Negative (Negative) 10/10/25 10:22 Coronavirus 229E (PCR) Not detected (NOT DETECT) 10/06/25 04:45 Human Metapneumovir PCR Not detected (NOT DETECT) 10/06/25 04:45 Influenza A (H1) PCR Not detected (NOT DETECT) 10/06/25 04:45 Influ A (H1/09) PCR Not detected (NOT DETECT) 10/06/25 04:45 Influenza A (H3) PCR Not detected (NOT DETECT) 10/06/25 04:45 Influenza Type A (PCR) Not detected (NOT DETECT) 10/06/25 04:45 Influenza Type B (PCR) Not detected (NOT DETECT) 10/06/25 04:45 M. pneumoniae (PCR) Not detected (NOT DETECT) 10/06/25 04:45 Parainfluenza 1 (PCR) Not detected (NOT DETECT) 10/06/25 04:45 Parainfluenza 2 (PCR) Not detected (NOT DETECT) 10/06/25 04:45 Parainfluenza 3 (PCR) Not detected (NOT DETECT) 10/06/25 04:45 Parainfluenza 4 (PCR) Not detected (NOT DETECT) 10/06/25 04:45 RSV Type A (PCR) Not detected (NOT DETECT) 10/06/25 04:45 RSV Type B (PCR) Not detected (NOT DETECT) 10/06/25 04:45 Entero/Rhino (PCR) Not detected (NOT DETECT) 10/06/25 04:45 SARS-CoV-2 (PCR) Not detected (NOT DETECT) 10/06/25 04:45 Vitals Last Vital Signs Temp 97.9 F 10/11/25 13:55 Pulse 90 10/11/25 13:55 Resp 20 H 10/11/25 13:55 BP 151/83 10/11/25 13:55 Pulse Ox 93 10/11/25 13:55 O2 Del Method Room Air 10/11/25 11:18 O2 Flow Rate 2 10/11/25 08:04 FiO2 60 10/09/25 03:00 Discharge Plan Discharge Patient Disposition: Home Health Service Condition: Stable Prescriptions: New metoprolol tartrate 25 mg Tablet 12.5 mg PO BID@0900,2100 60 Days Qty: 120 0RF nitrofurantoin 50 mg/5 mL suspension 100 mg PO BID 5 Days Qty: 100 0RF Rx Instructions: must administer with a meal/food atorvastatin 40 mg Tablet 40 mg PO BEDTIME 60 Days Qty: 60 0RF amlodipine 5 mg Tablet 5 mg PO DAILY 60 Days Qty: 60 0RF vancomycin 125 mg Capsule 125 mg PO Q6H 12 Days Qty: 48 0RF Phospha 250 Neutral 250 mg Tablet 1 tab PO BID 3 Days Qty: 6 0RF furosemide 20 mg Tablet 20 mg PO DAILY@0800 60 Days Qty: 60 0RF (DME) nebulizer accessories Kit See Rx Instructions .Route Qty: 1 0RF Rx Instructions: As directed ipratropium-albuterol 0.5 mg-3 mg(2.5 mg base)/3 mL solution for nebulization 3 ml inhalation Q4H PRN (Reason: shortness of breath) Qty: 180 0RF Rx Instructions: until breathing returns to target peak flow/parameters ferrous sulfate [Iron (ferrous sulfate)] 325 mg (65 mg iron) tablet 325 mg PO BID Qty: 90 0RF Continued (DME) Blood Glucose Test Strip See Rx Instructions .Route Qty: 100 0RF Rx Instructions: tid ac meals albuterol sulfate 90 mcg/actuation HFA aerosol inhaler 2 puff inhalation Q6H PRN (Reason: shortness of breath or wheezing) Qty: 8.5 3RF (DME) blood-glucose meter Misc See Rx Instructions .Route Qty: 1 0RF Rx Instructions: dailyAs directed (DME) pen needle, diabetic [Comfort EZ Pen [place]] 32 gauge x 5/32 needle See Rx Instructions .Route Qty: 100 2RF Rx Instructions: use 3times a day to inject insulin. (DME) pen needle, diabetic [Comfort EZ Pen [place]] 31 gauge x 5/16 needle See Rx Instructions .Route Qty: 100 6RF Rx Instructions: use daily with levemir quetiapine 200 mg tablet 200 mg PO BEDTIME Qty: 30 4RF epinephrine [EpiPen 2-Pankaj] 0.3 mg/0.3 mL auto-injector 0.3 mg IM Q4H PRN (Reason: anaphylaxis) Qty: 2 0RF ticagrelor [Brilinta] 90 mg tablet 90 mg PO BID Qty: 180 3RF nitroglycerin [Nitrostat] 0.4 mg tablet, sublingual 0.4 mg SUBLINGUAL Q5M PRN (Reason: Chest Pain) Qty: 30 4RF Rx Instructions: do not exceed 3 doses per episode (DME) Blood Glucose Test Strip See Rx Instructions .Route Qty: 50 3RF Rx Instructions: As directed accucheck test strips for accu check machine oxybutynin chloride 10 mg tablet extended release 24hr 20 mg PO DAILY gabapentin 300 mg capsule 300 mg PO TID insulin glargine [Lantus Solostar U-100 Insulin] 100 unit/mL (3 mL) insulin pen 50 unit SUBCUT BID furosemide 40 mg tablet 40 mg PO DAILY PRN (Reason: Edema) (DME) Wheel chair See Rx Instructions .Route .MEDSUPPLY Qty: 1 0RF Rx Instructions: As directed (DME) Diabetic shoes with 3 sets of insoles and toe filler to right See Rx Instructions .Route .MEDSUPPLY Qty: 1 0RF Rx Instructions: As directed (DME) lancets Misc See Rx Instructions .Route Qty: 100 0RF Rx Instructions: 1 tid aspirin 81 mg tablet,delayed release (DR/EC) 81 mg PO QAM Qty: 30 4RF ezetimibe 10 mg tablet See Rx Instructions .ROUTE .COMPLEX Qty: 90 4RF Dose Instruction: TAKE 1 TABLET BY MOUTH DAILY Rx Instructions: TAKE 1 TABLET BY MOUTH DAILY losartan 50 mg tablet See Rx Instructions .ROUTE .COMPLEX Qty: 90 3RF Dose Instruction: TAKE 1 TABLET BY MOUTH DAILY at 8 am Rx Instructions: TAKE 1 TABLET BY MOUTH DAILY at 8 am metformin 500 mg tablet 500 mg PO BID morphine 15 mg tablet 15 mg PO Q8H PRN (Reason: Pain) pregabalin 300 mg capsule 300 mg PO BID Trulicity 1.5 mg/0.5 mL pen injector 1.5 mg SUBCUT Q7D pantoprazole 40 mg tablet,delayed release (DR/EC) 40 mg PO QAM PRN (Reason: Acid Reflux) cilostazol 100 mg tablet 100 mg PO BID Airport Ramp Supervisor OK for DC: Infectious Disease Discharge Order = DC NOW: Discharge Order (Routine); Ordered 10/11/25 Ordered By: Christina Soriano Referrals: [facility] [Outside] Sulma Davenport PLANER SETUP OPERATOR [Nurse Practitioner, Family Practice] Referral Note: We have notified your physician's clinic of the need for a follow-up appointment to be scheduled. If you have not heard from them within the next 2 business days, please call them directly. Discharge Diet: Advance as tolerated, Cardiac and Diabetic Discharge Activity: Resume usual activity and Limit activity as instructed Patient Instructions: Clostridium Difficile, Metoprolol (By mouth), Furosemide (By mouth), Amlodipine (By mouth), Atorvastatin (By mouth), Vancomycin (By mouth), Extended Spectrum Beta-Lactamase (GEN), Opioid Safety, Patient Portal & Carlos Instructions Discharge Attestations Time Spent in Discharge Care*: greater than 30 min Specific Discharge Activities: educating patient, educating and/or supporting family/caregiver, discussing with pcp/other providers, discussing with piano case maker/social workers/dc planners, documenting/other paperwork and evaluating patient/reviewing data Time Spent in Smoking Cessation: 3 to 10 minutes Status at Discharge: Cognitive status at discharge: cognitively intact, Behavioral status at discharge: cooperative, Functional status at discharge: other assisted ambulation, Overall status at discharge: patient is back to baseline Quality Metrics Clinical Quality Measures [ No reported AMI, CVA or VTE this stay] Coding Level of Care Code 47893 Diagnoses UTI (urinary tract infection) N39.0 Aspiration into lower respiratory tract T17.800A; W44.9XXA Diarrhea R19.7 Altered mental status R41.82
== END 2025-10-11 13:56 | disposition home health service (06) | DRG 393 ==
LOC: ER 01:40 → MEDSURG 04:07 → ICU 10-06 04:27 → MEDSURG 10-09 14:30
PROVIDERS: Student in an Organized Health Care Education/Training Program; Admitting Provider Internal Medicine; Emergency Provider Student in an Organized Health Care Education/Training Program; PCP Family Medicine; Visit Provider Student in an Organized Health Care Education/Training Program
DX: K55.059 Acute (reversible) ischemia of intestine, part and extent unspecified (principal); G92.8 Other toxic encephalopathy; J18.9 Pneumonia, unspecified organism; J96.01 Acute respiratory failure with hypoxia; I69.951 Hemiplegia and hemiparesis following unspecified cerebrovascular disease affecting right dominant side; K50.90 Crohn's disease, unspecified, without complications; N39.0 Urinary tract infection, site not specified; Z16.12 Extended spectrum beta lactamase (ESBL) resistance; N17.9 Acute kidney failure, unspecified; I50.32 Chronic diastolic (congestive) heart failure; B96.20 Unspecified Escherichia coli [E. coli] as the cause of diseases classified elsewhere; I25.10 Atherosclerotic heart disease of native coronary artery without angina pectoris; Z95.5 Presence of coronary angioplasty implant and graft; E11.51 Type 2 diabetes mellitus with diabetic peripheral angiopathy without gangrene; R00.0 Tachycardia, unspecified; A04.72 Enterocolitis due to Clostridium difficile, not specified as recurrent; D50.9 Iron deficiency anemia, unspecified; M79.7 Fibromyalgia; E66.01 Morbid (severe) obesity due to excess calories; Z96.652 Presence of left artificial knee joint; M06.9 Rheumatoid arthritis, unspecified; F32.A Depression, unspecified; G40.409 Other generalized epilepsy and epileptic syndromes, not intractable, without status epilepticus; G43.011 Migraine without aura, intractable, with status migrainosus; I25.2 Old myocardial infarction; I35.0 Nonrheumatic aortic (valve) stenosis; J44.9 Chronic obstructive pulmonary disease, unspecified; I11.0 Hypertensive heart disease with heart failure; E11.43 Type 2 diabetes mellitus with diabetic autonomic (poly)neuropathy; E78.5 Hyperlipidemia, unspecified; T17.918A Gastric contents in respiratory tract, part unspecified causing other injury, initial encounter; R33.9 Retention of urine, unspecified; G47.30 Sleep apnea, unspecified; T42.75XA Adverse effect of unspecified antiepileptic and sedative-hypnotic drugs, initial encounter; T40.2X5A Adverse effect of other opioids, initial encounter; T42.6X5A Adverse effect of other antiepileptic and sedative-hypnotic drugs, initial encounter; B95.62 Methicillin resistant Staphylococcus aureus infection as the cause of diseases classified elsewhere; Z79.4 Long term (current) use of insulin; Z79.82 Long term (current) use of aspirin; Z79.84 Long term (current) use of oral hypoglycemic drugs; Z79.85 Long-term (current) use of injectable non-insulin antidiabetic drugs; Z95.820 Peripheral vascular angioplasty status with implants and grafts; Z89.412 Acquired absence of left great toe; Z89.411 Acquired absence of right great toe; Z87.891 Personal history of nicotine dependence; Z68.39 Body mass index [BMI] 39.0-39.9, adult; Z87.01 Personal history of pneumonia (recurrent); Z87.440 Personal history of urinary (tract) infections
CPT/HCPCS: 36415; 36416; 36600; 51702; 51798; 70450; 71045; 71275; 74174; 76705; 80048; 80051; 80053; 80076; 80202; 81001; 82140; 82330; 82607; 82728; 82746; 82805; 82962; 83540; 83550; 83605; 83690; 83735; 83880; 84100; 84443; 84484; 85025; 86141; 87040; 87077; 87086; 87186; 87324; 87486; 87493; 87581; 87633; 93005; 94640; 94660; 94669; 96372; 96374; 96375; 97161; 97167; 97530; 99285; J0692; J0696; J1171; J1630; J1650; J1815; J1938; J1956; J2060; J2185; J2270; J2312; J2405; J2916; J2919; J3372; J3373; J3480; J7030; J7040; J7050; J7120; J7614; J7626; J7644; J9999